=== PATIENT | male | born 1965 | race Caucasian/White ===

== ENCOUNTER 2017-06-04 09:45 | Emergency (ER) | payer SELFPAY ==
[2017-06-04 09:50] VITALS: BMI 20.1
--- NOTE | 2017-06-04 10:06 | PDOC ---
History of Present Illness - General History Source: Patient Exam Limitations: No Limitations - History of Present Illness Initial Comments: 06/04/17 10:59 The patient is a 52-year-old male with a significant past medical history of HLD and HTN, who presents to the emergency department with complaints of constipation for 2 weeks. He reports he feels like there is a weight at his pubic region. He also reports attempts to use the bathroom that have only resulted in the release of gas. He also complains of decreased appetite and increased sweating over the last two weeks that is worse during the day. He reports he has been able to drink water, but has been experiencing urinary hesitancy. He reports he has bowel movements every other day at baseline. He states this level of constipation has not occurred before. He states he went to [facility] 6 months ago and was told to have high blood pressure, high cholesterol, and high blood sugar. He states he also developed right leg, left facial, and left arm numbness 6 months ago, and worsening vision for 4 months. Patient states he lost approximately 50 pounds over the last 3 years after he stopped drinking alcohol. The patient denies chest pain, shortness of breath, headache and dizziness. The patient denies fever, chills, abdominal pain, nausea, vomit, and diarrhea. The patient denies dysuria, frequency, urgency and hematuria. Allergies: NKDA Past Surgical History: None reported Social History: Current everyday smoker, previous ETOH use, no other current toxic habits <Jaja Lerner - Last Filed: 06/04/17 10:59> <Layne Up - Last Filed: 06/04/17 15:25> - General Chief Complaint: Constipation Stated Complaint: URINARY PROBLEM Time Seen by Provider: 06/04/17 10:05 Past History <Jaja Lerner - Last Filed: 06/04/17 10:59> - Past Medical History COPD: No - Suicide/Smoking/Psychosocial Hx Smoking History: Current every day smoker Number of Cigarettes Smoked Daily: 20 Information on smoking cessation initiated: No Substance Use Type: Alcohol <Layne Up - Last Filed: 06/04/17 15:25> - Past Medical History Allergies/Adverse Reactions: Allergies Allergy/AdvReac Type Severity Reaction Status Date / Time No Known Allergies Allergy Verified 06/04/17 09:50 Home Medications: Ambulatory Orders Metformin HCl 500 mg PO BID #30 tablet 06/04/17 Polyethylene Glycol 3350 [Miralax (For Daily Use) -] 17 gm PO DAILY #1 bottle Review of Systems - Review of Systems Able to Perform ROS?: Yes Comments:: 06/04/17 10:59 GENERAL/CONSTITUTIONAL: No fever or chills. No weakness. (+) Diaphoresis. (+) Decreased appetite. HEAD, EYES, EARS, NOSE AND THROAT: (+) Blurry vision. No ear pain or discharge. No sore throat. CARDIOVASCULAR: No chest pain or shortness of breath. RESPIRATORY: No cough, wheezing, or hemoptysis. GASTROINTESTINAL: No nausea, vomiting, diarrhea. No abdominal pain. (+) Constipation. GENITOURINARY: No dysuria, frequency. (+) Urinary hesitancy. MUSCULOSKELETAL: No joint or muscle swelling or pain. No neck or back pain. SKIN: No rash NEUROLOGIC: No headache, vertigo, loss of consciousness, or change in strength/ sensation. (+) Visual changes. ENDOCRINE: No increased thirst. HEMATOLOGIC/LYMPHATIC: No anemia, easy bleeding, or history of blood clots. ALLERGIC/IMMUNOLOGIC: No hives or skin allergy. <Jaja Lerner - Last Filed: 06/04/17 10:59> *Physical Exam - Vital Signs Last Vital Signs Temp Pulse Resp BP Pulse Ox 97.8 F 93 H 18 144/88 99 06/04/17 09:47 06/04/17 09:47 06/04/17 09:47 06/04/17 09:47 06/04/17 09:47 - Physical Exam Comments: 06/04/17 10:59 GENERAL: Awake, alert, and fully oriented, in no acute distress. (+) Cachetic. HEAD: No signs of trauma EYES: PERRLA, EOMI, sclera anicteric, conjunctiva clear ENT: Auricles normal inspection, hearing grossly normal, nares patent, oropharynx clear without exudates. Moist mucosa NECK: Normal ROM, supple, no lymphadenopathy, JVD, or masses LUNGS: Breath sounds equal, clear to auscultation bilaterally. No wheezes, and no crackles HEART: Regular rate and rhythm, normal S1 and S2, no murmurs, rubs or gallops ABDOMEN: Soft, nontender, normoactive bowel sounds. No guarding, no rebound. No masses TESTICULAR EXAM: No hernias, no masses, no tenderness. EXTREMITIES: Normal range of motion, no edema. No clubbing or cyanosis. No cords, erythema, or tenderness NEUROLOGICAL: Cranial nerves II through XII grossly intact. Normal speech, normal gait SKIN: Warm, Dry, normal turgor, no rashes or lesions noted. <Jaja Lerner - Last Filed: 06/04/17 10:59> - Vital Signs Last Vital Signs Temp Pulse Resp BP Pulse Ox 97.8 F 93 H 18 144/88 99 06/04/17 09:47 06/04/17 09:47 06/04/17 09:47 06/04/17 09:47 06/04/17 09:47 <Layne Up - Last Filed: 06/04/17 15:25> ED Treatment Course - LABORATORY CBC & Chemistry Diagram: 06/04/17 11:00 06/04/17 11:00 <Layne Up - Last Filed: 06/04/17 15:25> Medical Decision Making - Medical Decision Making 06/04/17 11:07 Pt presents to the ED complaining of a two week history of constipation that appears to be an exacerbation of his chronic constipation. PAtient appears chronically ill--he is extremely cachectic and his visual acuity is extremely poor, which is new over the last 4 months. Differential includes chronic untreated DM, hypothyroidism, occult malignancy, other metabolic or endocrine derrangement. Will check labs, CXR and KUB and reassess. I have discussed at length with the patient the need for follow up and primary care. Will refer to primary care if labs show no emergent issues. <Layne Up - Last Filed: 06/04/17 15:25> *DC/Admit/Observation/Transfer - Attestations Scribe Attestion: 06/04/17 11:00 Documentation prepared by Jaja Lerner, acting as rn medical surgical for Layne Up MD, /DO. <Jaja Lerner - Last Filed: 06/04/17 10:59> - Discharge Dispostion Admit: No <Layne Up - Last Filed: 06/04/17 15:25> Diagnosis at time of Disposition: Diabetes Qualifiers: Diabetes mellitus type: other specified (including ELYSE) Diabetes mellitus complication status: with hyperglycemia Diabetes mellitus fpc insulin use : without director long term care use Qualified Code(s): E13.65 - Other specified diabetes mellitus with hyperglycemia - Discharge Dispostion Disposition: HOME Condition at time of disposition: Good - Prescriptions Prescriptions: Metformin HCl 500 mg PO BID #30 tablet Polyethylene Glycol 3350 [Miralax (For Daily Use) -] 17 gm PO DAILY #1 bottle - Referrals Referrals: Dimas Cevallos MD [Staff Physician] - Iván Braga MD [Staff Physician] - - Patient Instructions Printed Discharge Instructions: Type 2 Diabetes, DI for Hyperglycemia -- Adult Additional Instructions: return to the ED for passing out, vomiting, abdominal pain, other new or worsening symptoms. You have diabetes--you must take the medicine prescribed for you or you will become very sick. Please go to medical clinic tomorrow morning--you need to have your blood sugar checked and you need medical follow up. Return to fast track for a blood sugar check if they are unable to see you in medical clinic.
[2017-06-04 11:07] LABS: BASO % 0.4 % (0-2.0); EOS % 0.9 % (0-4.5); HEMATOCRIT 38.3 % (35.4-49); HEMOGLOBIN 12.4 GM/dL (11.7-16.9); LYMPH % 10.1 % (8-40); MCH 26.3 pg (25.7-33.7); MCHC 32.5 g/dl (32.0-35.9); MEAN CELL VOLUME 81.1 fl (80-96); MEAN PLT VOLUME 7.7 fl (7.5-11.1); MONO % 7.1 % (3.8-10.2); NEUT % 81.5 % (42.8-82.8); PLATELET COUNT 424 K/MM3 (134-434); RBC 4.73 M/mm3 (4.00-5.60); RDW 13.1 % (11.9-15.9); WHITE BLOOD COUNT 9.5 K/mm3 (4.0-10.0)
[2017-06-04 11:34] LABS: ALBUMIN 2.7 g/dl (3.4-5.0); ANION GAP 6 (8-16); BLOOD UREA NITROGEN 18 mg/dL (7-18); CALCIUM 8.9 mg/dL (8.5-10.1); CHLORIDE 98 mmol/L (98-107); CO2 30 mmol/L (21-32); CREATININE 1.1 mg/dL (0.7-1.3); POTASSIUM 3.9 mmol/L (3.5-5.1); SGOT/AST 3 U/L (15-37); SGPT/ALT 19 U/L (12-78); SODIUM 134 mmol/L (136-145)
[2017-06-04 11:35] LABS: BILIRUBIN,TOTAL 0.4 mg/dL (0.2-1.0); GLUCOSE,RANDOM 383 mg/dL (74-106); TOT PROT 6.7 g/dl (6.4-8.2)
[2017-06-04] MEDS ORDERED: SODIUM CHLORIDE 1,000 ML IV STA ×2 (11:35→14:01)
[2017-06-04] MEDS ORDERED: SODIUM CHLORIDE 0.9% 1000 ML INFUS.BAG IV ONE (11:36)
[2017-06-04 11:43] LABS: ALK PHOS 260 U/L (45-117)
--- NOTE | 2017-06-04 15:25 | HOSP ---
Subjective - Review of Symptoms Subjective: spoke with ER MD about this patient with concern regarding his elevated sugars as per ER MD pt came in with c/o constipation, with hx of uncontrolled sugars and blood pressure which pt did not follow up with PMD for treatment Pt was treated with IVF with improvement in sugars after 1L NS, 380>330. as pt has no symptoms would suggest to start metformin, diabetic counseling on risks assoc with untreated DM and encourage to follow up in resident clinic with Dr Braga tomorrow. Advise pt can just walk into clinic tomorrow without appointment. Physical Examination Vital Signs: Vital Signs Temperature 98.9 F 06/04/17 12:25 Pulse Rate 77 06/04/17 12:25 Respiratory Rate 17 06/04/17 12:25 Blood Pressure 158/89 06/04/17 12:25 O2 Sat by Pulse Oximetry (%) 100 06/04/17 12:25 Labs: CBC, BMP 06/04/17 11:00 06/04/17 11:00
[2017-06-04 15:41] VITALS: BP 148/79; PULSE 78; TEMP 98.2
== END 2017-06-04 15:41 | disposition home or self-care (01) ==
LOC: JER 09:45
PROC: 3E0337Z Introduction of Electrolytic and Water Balance Substance into Peripheral Vein, Percutaneous Approach (ICD-10-PCS; principal; 2017-06-04)
DX: E11.65 Type 2 diabetes mellitus with hyperglycemia (principal); I10 Essential (primary) hypertension; E78.00 Pure hypercholesterolemia, unspecified
CPT/HCPCS: 36415; 71046-TC-FY; 74018-TC-FY; 80053; 82962; 84443; 85025; 99282-25

== ENCOUNTER 2017-06-05 11:28 | Emergency (ER) | payer SELFPAY ==
[2017-06-05 11:45] VITALS: BP 151/98; PULSE 77; TEMP 97.9; BMI 20.1
--- NOTE | 2017-06-05 12:39 | PDOC ---
History of Present Illness - General Chief Complaint: Pain, Acute Stated Complaint: REVISIT, CONSTIPATED Time Seen by Provider: 06/05/17 11:54 - History of Present Illness Initial Comments: 06/05/17 12:34 The patient is a 52 year old male, with a significant past medical history of diabetes (Dx yesterday), who presents to the emergency department with two weeks of constipation and a heaviness pain to his lower abdomen and groin. He reports a heaviness to his groin which is alleviated by sitting and exacerbated with walking or standing.The patient states he was seen in the ED yesterday for the same symptoms and started in metformin after being found to have elevated glucose and given miralax to take at home for his constipation. He reports taking two doses of the miralax without a bowel movement, so he came to ER today. Pt denies any abdominal pain. Denies N/V. Denies F/C. The patient denies chest pain, shortness of breath, headache and dizziness. The patient denies fever, chills, nausea, vomit, diarrhea. The patient denies dysuria, frequency, urgency and hematuria. Pt notes that he has his first PMD appointment TODAY at 2pm for management of his new diabetes. Allergies: NKDA " Past History - Past Medical History Allergies/Adverse Reactions: Allergies Allergy/AdvReac Type Severity Reaction Status Date / Time No Known Allergies Allergy Verified 06/05/17 11:39 Home Medications: Ambulatory Orders Metformin HCl 500 mg PO BID #30 tablet 06/04/17 Polyethylene Glycol 3350 [Miralax (For Daily Use) -] 17 gm PO DAILY #1 bottle Magnesium Citrate [Citroma -] 300 ml PO ONCE #2 bottle 06/05/17 Sodium Phosphate/Na Biphos [Fleet Adult Rectal Enema] 133 ml RC ONCE #1 enema COPD: No - Suicide/Smoking/Psychosocial Hx Smoking History: Current every day smoker Have you smoked in the past 12 months: Yes Number of Cigarettes Smoked Daily: 20 Information on smoking cessation initiated: Yes 'Breaking Loose' booklet given: 06/05/17 Hx Alcohol Use: No Drug/Substance Use Hx: No Substance Use Type: Alcohol Review of Systems - Review of Systems Comments:: 06/05/17 12:35 """GENERAL/CONSTITUTIONAL: No fever or chills. No weakness. HEAD, EYES, EARS, NOSE AND THROAT: No change in vision. No ear pain or discharge. No sore throat. CARDIOVASCULAR: No chest pain or shortness of breath. RESPIRATORY: No cough, wheezing, or hemoptysis. GASTROINTESTINAL: (+) constipation. No nausea, vomiting, diarrhea GENITOURINARY: No dysuria, frequency, or change in urination. MUSCULOSKELETAL: No joint or muscle swelling or pain. No neck or back pain. SKIN: No rash NEUROLOGIC: No headache, vertigo, loss of consciousness, or change in strength/ sensation. ENDOCRINE: No increased thirst. No abnormal weight change. HEMATOLOGIC/LYMPHATIC: No anemia, easy bleeding, or history of blood clots. ALLERGIC/IMMUNOLOGIC: No hives or skin allergy. """ *Physical Exam - Vital Signs Last Vital Signs Temp Pulse Resp BP Pulse Ox 97.9 F 77 20 151/98 100 06/05/17 11:39 06/05/17 11:39 06/05/17 11:39 06/05/17 11:39 06/05/17 11:39 - Physical Exam Comments: 06/05/17 12:35 """GENERAL: Awake, alert, and fully oriented, in no acute distress HEAD: No signs of trauma EYES: PERRLA, EOMI, sclera anicteric, conjunctiva clear ENT: Auricles normal inspection, hearing grossly normal, nares patent, oropharynx clear without exudates. Moist mucosa NECK: Nontender, no stepoffs, Normal ROM, supple, no lymphadenopathy, JVD, or masses LUNGS: Breath sounds equal, clear to auscultation bilaterally. No wheezes, and no crackles HEART: Regular rate and rhythm, normal S1 and S2, no murmurs, rubs or gallops ABDOMEN: Soft, nontender, normoactive bowel sounds. No guarding, no rebound. No masses EXTREMITIES: Normal range of motion, no edema. No clubbing or cyanosis. No cords, erythema, or tenderness NEUROLOGICAL: Cranial nerves II through XII intact. 5/5 strength and sensation in all extremities, Normal speech, normal gait SKIN: Warm, Dry, normal turgor, no rashes or lesions noted. """ Medical Decision Making - Medical Decision Making 06/05/17 12:36 52 M with constipation. Benign abdomen. Pt has primary care appointment today at 2PM. Discussed treatment options with pt, who has opted to take mag citrate and enema at home so that he will not miss his appointment today. - DC with mag citrate and enema - F/u PMD today Pt is well appearing, with normal vitals. Clinically stable for DC at this time. I discussed the physical exam findings, ancillary test results and final diagnoses with the patients family. I answered all of their questions. The family was satisfied with the care received and felt comfortable with the discharge plan and treatment plan. They agree to follow up with the primary care physician within 24-72 hours. *DC/Admit/Observation/Transfer Diagnosis at time of Disposition: Constipation - Discharge Dispostion Disposition: HOME - Prescriptions Prescriptions: Magnesium Citrate [Citroma -] 300 ml PO ONCE #2 bottle Sodium Phosphate/Na Biphos [Fleet Adult Rectal Enema] 133 ml RC ONCE #1 enema - Referrals Referrals: Roosevelt Alcaraz MD [Staff Physician] - - Patient Instructions Printed Discharge Instructions: DI for Constipation Additional Instructions: Please follow up with your primary care doctor TODAY as scheduled. Go directly to clinic after leaving the ER. Call the number provided to make an appointment with a senior staff specialized employment for further management of your constipation. Take the magnesium citrate as prescribed to help you have a bowel movement. Use the enema if the magnesium citrate doesn't work. If you experience abdominal pain, nausea, vomiting, fevers, or any other concerning symptoms, return to the ER immediately. - Post Discharge Activity - Attestations Physician Attestion: 06/05/17 12:40 I, Dr. Michele Frias MD, attest that this document has been prepared under my direction and personally reviewed by me in its entirety. I further attest, that it accurately reflects all work, treatment, procedures and medical decision -making performed by me.
== END 2017-06-05 12:50 | disposition home or self-care (01) ==
LOC: JER 11:28
DX: K59.00 Constipation, unspecified (principal); E11.9 Type 2 diabetes mellitus without complications; Z79.84 Long term (current) use of oral hypoglycemic drugs; F17.210 Nicotine dependence, cigarettes, uncomplicated
CPT/HCPCS: 99282-25

== ENCOUNTER 2017-06-28 10:56 | Inpatient (IN) | payer OTHER ==
[2017-06-28 11:01] VITALS: BMI 24.3
[2017-06-28] MEDS ORDERED: SODIUM CHLORIDE 1,000 ML IV STA ×2 (11:18→14:40)
--- NOTE | 2017-06-28 11:19 | PDOC ---
Attending Attestation - HPI HPI: 06/28/17 11:42 The patient is 52 year old male with a significant PMH of recently diagnosed diabetes (noncompliant with Metformin), HTN, and hyperlipidemia who presents to the emergency department with elevated blood sugar and rectal pain when sitting. The patient reports seeing his Opthamologist today and being told his blood sugar was over 900, prompting his visit. The patient also notes receiving a call yesterday from Dr. Cabrera office noting that his abdomen/pelvis CT on 09/08 showed a 'multiloculated lesion within the left perineum suggesting a perirectal abscess', as he was following with him for constipation. He denies diarrhea or hematochezia. He denies any weakness or numbness. He denies any other complaints. Allergies: NKA GI: Dr. Munoz - Physicial Exam PE: 06/28/17 11:42 GENERAL: (+) Appears thin. Awake, alert, and fully oriented, in no acute distress HEAD: No signs of trauma EYES: PERRLA, EOMI, sclera anicteric, conjunctiva clear ENT: (+) Dry mucosa. Auricles normal inspection, hearing grossly normal, nares patent, oropharynx clear without exudates. NECK: Normal ROM, supple, no lymphadenopathy, JVD, or masses LUNGS: Breath sounds equal, clear to auscultation bilaterally. No wheezes, and no crackles HEART: Regular rate and rhythm, normal S1 and S2, no murmurs, rubs or gallops ABDOMEN: Soft, nontender, normoactive bowel sounds. No guarding, no rebound. No masses EXTREMITIES: Normal range of motion, no edema. No clubbing or cyanosis. No cords, erythema, or tenderness NEUROLOGICAL: Cranial nerves II through XII grossly intact. Normal speech, normal gait SKIN: Warm, Dry, normal turgor, no rashes or lesions noted. <Saji Tapia - Last Filed: 06/28/17 12:42> - Resident Resident Name: Randall Saenz - ED Attending Attestation I have performed the following: I have examined & evaluated the patient, The case was reviewed & discussed with the resident, I agree w/resident's findings & plan, Exceptions are as noted - Medical Decision Making Pt recently diagnosed with DM2 presents with hyperglycemia, perirectal abscess. He was recently started on metformin for his blood sugar, but he misunderstood instructions (misread the label) and was taking it daily instead of BID. Also he was just diagnosed with perirectal abscess by Dr. Munoz, who was arranging surgical referral. D/w Dr. Sawant, gleason operator for surgery, recommended IR evaluation. Will admit and consult with both. <Gemma Diaz - Last Filed: 06/28/17 13:20>
--- NOTE | 2017-06-28 11:31 | PDOC ---
History of Present Illness - General Chief Complaint: Blood Sugar Problem Stated Complaint: High sugar (900) Time Seen by Provider: 06/28/17 11:02 - History of Present Illness Initial Comments: 06/28/17 11:49 The patient is a 52 year old male with a history of HTN, HLD, Recently diagnosed DM, who presents for evaluation of high blood sugar. The patient is accompanied by family who assist in providing the history. They report that the patient was diagnosed with DM 1 month ago here in our ED and placed on Metformin 500mg BID, although the patient has only been taking the medication once a day. He states that he was seeing his opthomologist today who referred him to the ED due to an extremely high blood sugar. The patient notes that he was recently diagnosed with a perirectal abscess on CT [address] Munoz. Otherwise, the patient's only complaint on presentation is rectal pain due to the perirectal abscess. He denies fevers, chills, SOB, chest pain, nausea, vomiting, abdominal pain, or changes with urination. Past History - Past Medical History Allergies/Adverse Reactions: Allergies Allergy/AdvReac Type Severity Reaction Status Date / Time No Known Allergies Allergy Verified 06/28/17 11:01 Home Medications: Ambulatory Orders Metformin HCl 500 mg PO BID #30 tablet 06/04/17 Polyethylene Glycol 3350 [Miralax (For Daily Use) -] 17 gm PO DAILY #1 bottle Magnesium Citrate [Citroma -] 300 ml PO ONCE #2 bottle 06/05/17 Sodium Phosphate/Na Biphos [Fleet Adult Rectal Enema] 133 ml RC ONCE #1 enema Atorvastatin Ca [Lipitor] 40 mg PO HS 06/28/17 Calcium Carb, Citrate/Vit D3 [Calcium + D3 ER Tablet] 1 each PO DAILY 06/28/17 COPD: No Diabetes: Yes - Suicide/Smoking/Psychosocial Hx Smoking History: Current every day smoker Have you smoked in the past 12 months: Yes Number of Cigarettes Smoked Daily: 5 Information on smoking cessation initiated: Yes 'Breaking Loose' booklet given: 06/28/17 Hx Alcohol Use: No Drug/Substance Use Hx: No Substance Use Type: Alcohol Review of Systems - Review of Systems Comments:: 06/28/17 11:54 Constitutional: No fevers, chills, fatigue, malaise HEENT: No Rhinorrhea, nasal congestion, visual changes Cardiovascular: No chest pain, syncope, palpitations, lightheadedness Respiratory: No Cough, SOB, Hemoptysis, Gastrointestinal: No Abdominal pain, Nausea, Vomiting, Constipation, Diarrhea, Melena Genitourinary: Rectal pain. No Dysuria, Frequency, Urgency, Hesitancy, Hematuria, Flank pain Musculoskeletal: No Myalgia, arthralgia Skin: No rashes, itching, bruising, pallor Neurologic: No Headache, Dizziness, Numbness, Weakness, or Tingling Psychiatric: No Hallucinations. No SI or HI *Physical Exam - Vital Signs Last Vital Signs Temp Pulse Resp BP Pulse Ox 97.9 F 103 H 19 149/90 98 06/28/17 10:58 06/28/17 10:58 06/28/17 10:58 06/28/17 10:58 06/28/17 10:58 - Physical Exam Comments: 06/28/17 11:54 General Appearance: Nourished. No Apparent Distress HEENT: EOMI, STEPHANIE. No Pharyngeal Erythema, Tonsillar Exudate, Tonsillar Erythema Neck: No Cervical Lymphadenopathy Respiratory/Chest: Lungs Clear, Normal Breath Sounds. No Crackles, Rales, Rhonchi, Wheezing Cardiovascular: Regular Rhythm, Regular Rate. No Murmur, Gallops, Rubs Gastrointestinal/Abdominal: Normal Bowel Sounds, Soft. No Guarding, Rebound, Tenderness Musculoskeletal: No CVA Tenderness Extremity: Normal Capillary Refill Integumentary: Normal Color, Dry, Warm Neurologic: Fully Oriented, Alert, Normal Mood/Affect, Normal Response, ED Treatment Course - LABORATORY CBC & Chemistry Diagram: 06/28/17 11:15 06/28/17 11:15 Medical Decision Making - Medical Decision Making 06/28/17 11:55 The patient is a 52 year old male with a history of HTN, HLD, Recently diagnosed DM, who presents for evaluation of high blood sugar. Differential includes but is not limited to: Hyperglycemia, HHS, DKA, infectious, metabolic derangement. Given the patient's reported history of high blood sugar as well as a finger stick glucose that was over-range in triage, we will obtain a cbc, cmp, vbg, ua, acetone, troponin, ekg to evaluate further although it is likely the patient is hyperglycemic due to poor medication compliance and the patient' s known perirectal abscess. We will treat with iv fluids and 4 units of insulin here in the ED and continue to monitor and reassess. 06/28/17 12:52 CBC demonstrates an elevated wbc to 14.7, cmp demonstrates a glucose of 513 without anion gap with a negative acetone. UA demonstrates 3+ glucose and positive leuk easterase with 33 WBC. Given the patient's hyperglycemia and large perirectal abscess, he will require admission for further management of his symptoms. We discussed the case with Dr. Riddle who recommended IR evaluation for drainage and will evaluate the patient. We will start rocephin and flagyl here in the ED per Dr. Riddle's recommendations. We will continue to monitor and reassess. 06/28/17 13:27 We discussed the case with the hospitalist team who accepted the patient for admission. *DC/Admit/Observation/Transfer Diagnosis at time of Disposition: Hyperglycemia, Perirectal abscess - Discharge Dispostion Condition at time of disposition: Stable Admit: Yes - Referrals Referrals: Iván Braga MD [Primary Care Provider] - - Patient Instructions - Post Discharge Activity
[2017-06-28] MEDS ORDERED: INSULIN REGULAR HUMAN 100 UNITS/ML *VIAL SQ ONE (11:32)
[2017-06-28] MEDS ORDERED: INSULIN REGULAR HUMAN 100 UNITS/ML *VIAL ONE (11:36)
[2017-06-28 11:40] LABS: BASO % 0.6 % (0-2.0); HEMATOCRIT 37.4 % (35.4-49); HEMOGLOBIN 12.6 GM/dL (11.7-16.9); LYMPH % 7.3 % (8-40); MCHC 33.6 g/dl (32.0-35.9); MEAN CELL VOLUME 80.3 fl (80-96); MEAN PLT VOLUME 8.3 fl (7.5-11.1); NEUT % 87.1 % (42.8-82.8); PLATELET COUNT 491 K/MM3 (134-434); RBC 4.65 M/mm3 (4.00-5.60); RDW 13.5 % (11.9-15.9); WHITE BLOOD COUNT 14.7 K/mm3 (4.0-10.0)
[2017-06-28 11:43] LABS: VENOUS PH 7.35 (7.32-7.42)
[2017-06-28 11:44] LABS: VENOUS PC02 56.6 mmHg (38-52); VENOUS PO2 22.4 mmHg (28-48)
[2017-06-28 12:14] LABS: URINE APPEARANCE SLCLOUDY; URINE BILIRUBIN NEGATIVE (NEGATIVE); URINE BLOOD 1+ (NEGATIVE); URINE COLOR YELLOW; URINE GLUCOSE (UA) 3+ (NEGATIVE); URINE KETONE NEGATIVE (NEGATIVE); URINE NITRITE NEGATIVE (NEGATIVE); URINE UROBILINOGEN NEGATIVE mg/dL (0.2-1.0)
[2017-06-28 12:15] LABS: URINE LEUK ESTERASE 2+ (NEGATIVE); URINE PROTEIN 1+ (NEGATIVE)
[2017-06-28 12:16] LABS: EPI CELLS RARE /HPF (FEW); URINE BACTERIA RARE /hpf (NONE SEEN); URINE MUCUS RARE
[2017-06-28 12:26] LABS: ALBUMIN 2.8 g/dl (3.4-5.0); ALK PHOS 175 U/L (45-117); ANION GAP 10 (8-16); BILIRUBIN,TOTAL 0.2 mg/dL (0.2-1.0); BLOOD UREA NITROGEN 21 mg/dL (7-18); CHLORIDE 93 mmol/L (98-107); CO2 29 mmol/L (21-32); CREATININE 1.2 mg/dL (0.7-1.3); POTASSIUM 4.6 mmol/L (3.5-5.1); SGOT/AST 5 U/L (15-37); SGPT/ALT 11 U/L (12-78); SODIUM 132 mmol/L (136-145); TOT PROT 7.6 g/dl (6.4-8.2)
[2017-06-28 12:33] LABS: GLUCOSE,RANDOM 513 mg/dL (74-106)
[2017-06-28] MEDS ORDERED: ACETAMINOPHEN 1000 MG/100 ML VIAL (NON FORMULARY) IVPB ONE (12:40)
--- NOTE | 2017-06-28 12:53 | PN ---
Progress Note (short form) - Note Progress Note: surgery asked to evaluate 52m who had perirectal abscess tracking into pelvis on outpt ct 2 days ago. pt brought to hospital for inpatient evaluation. never had a colonscopy. ct reviewed. Abscess is not amenable to surgical drainage. suggest IR eval for drainage. needs gi eval for cause. prostate unlikely in the differential. will formally evaluate after the blizzard tomorrow. suggest zosyn or rocephin/flagyl.
[2017-06-28] MEDS ORDERED: CEFTRIAXONE 1 GM in DEXTROSE 5%-WATER - 50 ML IVPB ONE (13:13)
[2017-06-28] MEDS ORDERED: ACETAMINOPHEN INJECTION 100 ML IVPB ONE (13:20)
--- NOTE | 2017-06-28 13:55 | CON.GI ---
Consult Consult Specialty:: GI Reason for Consultation:: perirectal abscess - History of Present Illness History of Present Illness: the pt is known to me from outpatient follow up. He was seen as OP earlier this week for persistent anal pain. A CT revealed perirectal abscess. Other than anal pain and tenderness, no other symptoms, or sings on exam. The patient was referred to surgery for evaluation and prescribed Augmenting 875 po q12 x 10 days in the interim. The patient was scheduled to undergo colonoscopy as OP to r /o IBD, etc. No history of weight loss, jaundice, melena, hematochezia, hematemesis, dyspesia, dysphagia. - History Source History Provided By: Patient, Family Member () - Alcohol/Substance Use Hx Alcohol Use: No - Smoking History Smoking history: Current every day smoker Have you smoked in the past 12 months: Yes Aproximately how many cigarettes per day: 5 Home Medications - Allergies Allergies/Adverse Reactions: Allergies Allergy/AdvReac Type Severity Reaction Status Date / Time No Known Allergies Allergy Verified 06/28/17 11:01 - Home Medications Home Medications: Ambulatory Orders Metformin HCl 500 mg PO BID #30 tablet 06/04/17 Polyethylene Glycol 3350 [Miralax (For Daily Use) -] 17 gm PO DAILY #1 bottle Bisacodyl [Dulcolax] 5 mg PO DAILY 06/28/17 Family Disease History - Family Disease History Family History: Unremarkable Review of Systems Findings/Remarks: as per HPI Physical Exam-GI Vital Signs: Vital Signs Temperature 97.9 F 06/28/17 10:58 Pulse Rate 103 H 06/28/17 10:58 Respiratory Rate 19 06/28/17 10:58 Blood Pressure 149/90 06/28/17 10:58 O2 Sat by Pulse Oximetry (%) 98 06/28/17 10:58 Constitutional: Yes: Mild Distress Eyes: Yes: Conjunctiva Clear HENT: Yes: Atraumatic Cardiovascular: Yes: Regular Rate and Rhythm Gastrointestinal Inspection: No: Distention ...Palpate: Yes: Soft. No: Firm/Rigid, Guarding, Tenderness ...Rectal Exam: Yes: Sphincter Tone Normal, Other (tenderness @ 3 o'clock) Neurological: Yes: Alert, Oriented Labs: CBC, BMP 06/28/17 11:15 06/28/17 11:15 CBCD WBC 14.7 K/mm3 (4.0-10.0) H D 06/28/17 11:15 RBC 4.65 M/mm3 (4.00-5.60) 06/28/17 11:15 Hgb 12.6 GM/dL (11.7-16.9) 06/28/17 11:15 Hct 37.4 % (35.4-49) 06/28/17 11:15 MCV 80.3 fl (80-96) 06/28/17 11:15 MCHC 33.6 g/dl (32.0-35.9) 06/28/17 11:15 RDW 13.5 % (11.9-15.9) 06/28/17 11:15 Plt Count 491 K/MM3 (134-434) H 06/28/17 11:15 MPV 8.3 fl (7.5-11.1) 06/28/17 11:15 CMP Sodium 132 mmol/L (136-145) L 06/28/17 11:15 Potassium 4.6 mmol/L (3.5-5.1) 06/28/17 11:15 Chloride 93 mmol/L (98-107) L 06/28/17 11:15 Carbon Dioxide 29 mmol/L (21-32) 06/28/17 11:15 Anion Gap 10 (8-16) 06/28/17 11:15 BUN 21 mg/dL (7-18) H 06/28/17 11:15 Creatinine 1.2 mg/dL (0.7-1.3) 06/28/17 11:15 Creat Clearance w eGFR > 60 (>60) 06/28/17 11:15 Calcium 9.0 mg/dL (8.5-10.1) 06/28/17 11:15 Total Bilirubin 0.2 mg/dL (0.2-1.0) D 06/28/17 11:15 AST 5 U/L (15-37) L D 06/28/17 11:15 ALT 11 U/L (12-78) L D 06/28/17 11:15 Alkaline Phosphatase 175 U/L (45-117) H D 06/28/17 11:15 Total Protein 7.6 g/dl (6.4-8.2) 03/07/18 11:15 Albumin 2.8 g/dl (3.4-5.0) L 06/28/17 11:15 Imaging - Results Cat Scan: Report Reviewed Problem List - Problems (1) Perirectal abscess Code(s): K61.1 - RECTAL ABSCESS Assessment/Plan 52M with uncontrolled DM and perirectal abscess. SX/IR evaluation for possible drainage as it has been symptomatic x weeks leading to multiple ED visits ID consult. Would start Cipr/Flagyl, or equivalent in the interim. Plan Colonoscopy after drainage, possibly as OP Will follow
[2017-06-28] MEDS ORDERED: CEFTRIAXONE 1 GM/50 ML BAG ONE (13:56)
--- NOTE | 2017-06-28 14:34 | EKG ---
Test Reason : Blood Pressure : / mmHG Vent. Rate : 098 BPM Atrial Rate : 098 BPM P-R Int : 178 ms QRS Dur : 114 ms QT Int : 368 ms P-R-T Axes : 064 058 062 degrees QTc Int : 469 ms SINUS RHYTHM WITH PREMATURE VENTRICULAR COMPLEXES OR FUSION COMPLEXES POSSIBLE LEFT ATRIAL ENLARGEMENT BORDERLINE ECG NO PREVIOUS ECGS AVAILABLE Confirmed by CARON LECHUGA MD ([id number]) on 06/28/2017 2:34:15 PM Referred By: Confirmed By:CARON LECHUGA MD
[2017-06-28] MEDS ORDERED: ACETAMINOPHEN 325 MG TABLET (FP) PO PRN (14:47)
--- NOTE | 2017-06-28 14:51 | HP ---
CHIEF COMPLAINT: rectal pain and constipation PCP: Dr Braga HISTORY OF PRESENT ILLNESS: The pt is a 52 year old male with a PMH of recently diagnosed DM, hypercholesterolemia who presented today referred by his Ophtalmologist after he discovered his elevated blood glucose. He was followed by Dr Maradiaga for constipation and was found to have perirectal abscess on abdominal CT. He was advised to come to the hospital for IR drainage. Today he is complaining of rectal pain, 8/10 and constipation that is present for several months, subjective weight loss, change in color of bowel movements, no melena, no nausea , vomiting. He states that recently he has to press on his lower abdomen in order to urinate. He denies dysuria, increased frequency, urgency. The pt never had colonoscopy. He has a new PCP and started taking Metformin but once a day instead of twice a day as recommended. He also didn't get glucometer from pharmacy due to insurance issues. ER course was notable for: (1)sepsis protocol ordered (2)IVF (3)Ceftriaxone and Flagyl Recent Travel: PAST MEDICAL HISTORY: as above PAST SURGICAL HISTORY: none Social History: Smoking:current smoker, cut down to 3-4 cigarettes/day Alcohol:no Drugs: no Family History: Mother: bc of colon cancer in late 60s Father: DM Allergies No Known Allergies Allergy (Verified 06/28/17 11:01) HOME MEDICATIONS: Home Medications Medication Instructions Recorded Metformin HCl 500 mg PO BID #30 tablet 06/04/17 Polyethylene Glycol 3350 [Miralax 17 gm PO DAILY #1 bottle 06/04/17 (For Daily Use) -] Bisacodyl [Dulcolax] 5 mg PO DAILY 06/28/17 REVIEW OF SYSTEMS CONSTITUTIONAL: weight loss Absent: fever, chills, diaphoresis, generalized weakness, malaise, loss of appetite, HEENT: Absent: rhinorrhea, nasal congestion, throat pain, throat swelling, difficulty swallowing, CARDIOVASCULAR: Absent: chest pain, syncope, palpitations, irregular heart rate, lightheadedness , peripheral edema RESPIRATORY: Absent: cough, shortness of breath, dyspnea with exertion, orthopnea, wheezing, GASTROINTESTINAL:constipation, Absent: abdominal pain, abdominal distension, nausea, vomiting, diarrhea, melena , hematochezia GENITOURINARY: rectal pain Absent: dysuria, frequency, urgency, hesitancy, hematuria, flank pain, MUSCULOSKELETAL: Absent: myalgia, arthralgia, joint swelling, back pain, neck pain SKIN: Absent: rash, ENDOCRINE: Absent: unexplained weight gain, unexplained weight loss, heat intolerance, NEUROLOGIC: Absent: headache, focal weakness or paresthesias, dizziness PSYCHIATRIC: Absent: anxiety, depression, PHYSICAL EXAMINATION Vital Signs - 24 hr 06/28/17 10:58 Temperature 97.9 F Pulse Rate 103 H Respiratory 19 Rate Blood Pressure 149/90 O2 Sat by Pulse 98 Oximetry (%) GENERAL: Awake, alert, and fully oriented, in no acute distress, lying on the side. HEAD: Normal with no signs of trauma. EYES: extraocular movements intact, sclera anicteric, conjunctiva clear. EARS, NOSE, THROAT: Ears normal, nares patent, oropharynx clear without exudates. Moist mucous membranes. NECK: Normal range of motion, supple without lymphadenopathy, JVD, or masses. LUNGS: Breath sounds equal, clear to auscultation bilaterally. No wheezes, and no crackles. No accessory muscle use. HEART: Regular rate and rhythm, normal S1 and S2 without murmur, rub or gallop. ABDOMEN: Soft, nontender, not distended, normoactive bowel sounds, no guarding, no rebound, no masses. No hepatomegaly or splenomegaly. MUSCULOSKELETAL: Normal range of motion at all joints. No CVA tenderness. UPPER EXTREMITIES: No peripheral edema. LOWER EXTREMITIES: 2+ pulses, warm. No peripheral edema. NEUROLOGICAL: Normal speech, no facial asymmetry. Gait not observed. PSYCHIATRIC: Cooperative. Good eye contact. Appropriate mood and affect. SKIN: Warm, dry, normal turgor, no rashes or lesions noted. RECTAL: No external hemorrhoids, no rash, swelling on left buttock, 4-5 cm in diameter, tenderness to palpation, no rash, normal sphincter tone, no enlarged prostate., minimal stool in rectal vault. Laboratory Results - last 24 hr 06/28/17 06/28/17 06/28/17 11:15 11:15 11:15 WBC 14.7 H D RBC 4.65 Hgb 12.6 Hct 37.4 MCV 80.3 MCH 27.0 MCHC 33.6 RDW 13.5 Plt Count 491 H MPV 8.3 Neutrophils % 87.1 H Lymphocytes % 7.3 L D Monocytes % 4.0 Eosinophils % 1.0 Basophils % 0.6 PTT (Actin FS) 35.3 H VBG pH POC VBG pCO2 POC VBG pO2 Mixed VBG HCO3 Sodium 132 L Potassium 4.6 Chloride 93 L Carbon Dioxide 29 Anion Gap 10 BUN 21 H Creatinine 1.2 Creat Clearance w eGFR > 60 POC Glucometer Random Glucose 513 H* D Calcium 9.0 Total Bilirubin 0.2 D AST 5 L D ALT 11 L D Alkaline Phosphatase 175 H D Creatine Kinase 39 Troponin I < 0.02 Total Protein 7.6 Albumin 2.8 L Urine Color Urine Appearance Urine pH Ur Specific [place] Urine Protein Urine Glucose (UA) Urine Ketones Urine Blood Urine Nitrite Urine Bilirubin Urine Urobilinogen Ur Leukocyte Esterase Urine WBC (Auto) Urine RBC (Auto) Ur Epithelial Cells Urine Bacteria Urine Mucus Acetone, Qual 06/28/17 06/28/17 06/28/17 11:17 11:18 11:28 WBC RBC Hgb Hct MCV MCH MCHC RDW Plt Count MPV Neutrophils % Lymphocytes % Monocytes % Eosinophils % Basophils % PTT (Actin FS) VBG pH 7.35 POC VBG pCO2 56.6 H POC VBG pO2 22.4 L Mixed VBG HCO3 30.1 H Sodium Potassium Chloride Carbon Dioxide Anion Gap BUN Creatinine Creat Clearance w eGFR POC Glucometer > 400 Random Glucose Calcium Total Bilirubin AST ALT Alkaline Phosphatase Creatine Kinase Troponin I Total Protein Albumin Urine Color Urine Appearance Urine pH Ur Specific [place] Urine Protein Urine Glucose (UA) Urine Ketones Urine Blood Urine Nitrite Urine Bilirubin Urine Urobilinogen Ur Leukocyte Esterase Urine WBC (Auto) Urine RBC (Auto) Ur Epithelial Cells Urine Bacteria Urine Mucus Acetone, Qual Negative 06/28/17 06/28/17 11:46 13:38 WBC RBC Hgb Hct MCV MCH MCHC RDW Plt Count MPV Neutrophils % Lymphocytes % Monocytes % Eosinophils % Basophils % PTT (Actin FS) VBG pH POC VBG pCO2 POC VBG pO2 Mixed VBG HCO3 Sodium Potassium Chloride Carbon Dioxide Anion Gap BUN Creatinine Creat Clearance w eGFR POC Glucometer [phone] Random Glucose Calcium Total Bilirubin AST ALT Alkaline Phosphatase Creatine Kinase Troponin I Total Protein Albumin Urine Color Yellow Urine Appearance Slcloudy Urine pH 5.0 Ur Specific [place] 1.029 Urine Protein 1+ H Urine Glucose (UA) 3+ H Urine Ketones Negative Urine Blood 1+ H Urine Nitrite Negative Urine Bilirubin Negative Urine Urobilinogen Negative Ur Leukocyte Esterase 2+ H Urine WBC (Auto) 33 Urine RBC (Auto) 7 Ur Epithelial Cells Rare Urine Bacteria Rare Urine Mucus Rare Acetone, Qual ASSESSMENT/PLAN: This is a 52 year old male with a PMH of DM, HLD who presented to the hospital with elevated glucose and perirectal mass and was admitted for further evaluation. Sepsis due to perirectal abscess and UTI: -sepsis protocol started in ED -cultures ordered: blood and urine -continue IVF -continue antibiotics: Ceftriaxone and Flagyl -IR drainage ordered, IR will drain the abscess tomorrow -NPO after midnight -GI consulted, f/u recommendations for outpatient colonoscopy -pain control -LA added DM; -hold metformin -continue ISS, ACHS -BGM ACHS -HgA1C ordered for tomorrow Hypercholesterolemia: -will f/u lipid panel Constipation: -continue home meds F/E/N NS/no changes/Diabetic diet Disposition: med surg Full not to follow. Problem List - Problem (1) Hyperglycemia Code(s): R73.9 - HYPERGLYCEMIA, UNSPECIFIED (2) Perirectal abscess Code(s): K61.1 - RECTAL ABSCESS (3) Constipation Code(s): K59.00 - CONSTIPATION, UNSPECIFIED (4) Diabetes Code(s): E11.9 - TYPE 2 DIABETES MELLITUS WITHOUT COMPLICATIONS Qualifiers: Diabetes mellitus type: other specified (including ELYSE) Diabetes mellitus complication status: with hyperglycemia Diabetes mellitus termination clerk insulin use: without retirement use Qualified Code(s): E13.65 - Other specified diabetes mellitus with hyperglycemia Visit type - Emergency Visit Emergency Visit: Yes ED Registration Date: 06/28/17 Care time: The patient presented to the Emergency Department on the above date and was hospitalized for further evaluation of their emergent condition. - New Patient This patient is new to me today: No - Critical Care Critical Care patient: No
--- NOTE | 2017-06-28 14:57 | HP ---
CHIEF COMPLAINT: rectal pain when sitting and hyperglycemia PCP: Dr. Braga HISTORY OF PRESENT ILLNESS: 52M with PMH of DM (diagnosed last month), htn, hld, presents with recently diagnosed perirectal abscess and sent by Ophthamologist for hyperglycemia. Pt went to Ophthamologist yesterday and had bloodwork done revealing glucose >900, so Ophthamologist called pt today advising him to come to the ER. Pt's blood glucose was 513 upon arrival to the ER, and 214 after 4U of Regular Insulin administered subcutaneously. Pt was discovered to be taking his new prescription of Metformin incorrectly, pt was taking 500mg once daily instead of BID. Pt has also been following GI (Dr. Muonz) for anal pain and constipation, and was found to have 5.2 x 3.9 x 8.4 cm multiloculated cystic lesion in the Left perineum on CT imaging from 06/26/17. Pt referred for Surgery eval and prescribed Augmentin 875mg BID for 10 days, which pt picked up from the pharmacy yesterday. Pt does report family history of mother passing away from colon cancer at age 68. Pt denies sick contacts, recent illness, fever, chills, dysuria, hematuria, hematochezia, chest pain, sob, abdominal pain, suprapubic pain. ER course was notable for: (1) NS 1 L bolus (2) Ceftriaxone and Flagyl given (3) Ofirmev 1g IVPB (4) Regular Insulin 4U SQ PAST MEDICAL HISTORY: DM htn hld PAST SURGICAL HISTORY: denies Social History: Smoking: cut down to 4 cigarettes daily Alcohol: denies Drugs: denies Family History: mom - colon cancer, passed at age 68 dad - DM Allergies No Known Allergies Allergy (Verified 06/28/17 11:01) HOME MEDICATIONS: Home Medications Medication Instructions Recorded Metformin HCl 500 mg PO BID #30 tablet 06/04/17 Polyethylene Glycol 3350 [Miralax 17 gm PO DAILY #1 bottle 06/04/17 (For Daily Use) -] Bisacodyl [Dulcolax] 5 mg PO DAILY 06/28/17 REVIEW OF SYSTEMS CONSTITUTIONAL: Absent: fever, chills, diaphoresis, generalized weakness, malaise, loss of appetite, weight change HEENT: Absent: rhinorrhea, nasal congestion, throat pain, eye pain, visual changes CARDIOVASCULAR: Absent: chest pain, palpitations, irregular heart rate, peripheral edema RESPIRATORY: Absent: cough, shortness of breath, wheezing, stridor, hemoptysis GASTROINTESTINAL: Absent: abdominal pain, abdominal distension, nausea, vomiting, diarrhea, constipation, melena, hematochezia GENITOURINARY: Absent: dysuria, frequency, urgency, hesitancy, hematuria MUSCULOSKELETAL: Absent: myalgia, arthralgia, joint swelling SKIN: Absent: rash, itching, pallor NEUROLOGIC: Absent: headache, focal weakness or paresthesias PSYCHIATRIC: Absent: anxiety, depression, suicidal or homicidal ideation, hallucinations. PHYSICAL EXAMINATION Vital Signs - 24 hr 06/28/17 06/28/17 10:58 14:50 Temperature 97.9 F 97.7 F Pulse Rate 103 H Pulse Rate [ 88 Right Radial] Respiratory 19 16 Rate Blood Pressure 149/90 Blood Pressure 135/90 [Left Arm] O2 Sat by Pulse 98 98 Oximetry (%) GENERAL: Awake, alert, and fully oriented, in no acute distress. HEENT: NC, AT. Poor dentition. LUNGS: Breath sounds equal, clear to auscultation bilaterally. No wheezes, and no crackles. No accessory muscle use. HEART: Regular rate and rhythm, normal S1 and S2 without murmur, rub or gallop. ABDOMEN: Soft, nontender, not distended, normoactive bowel sounds, no guarding, no suprapubic tenderness. NEURO: No facial droop. Sensation intact. Muscle strength 5/5 x 4 extremities. LOWER EXTREMITIES: Warm, well-perfused. No calf tenderness. No peripheral edema. PSYCHIATRIC: Cooperative. Good eye contact. Appropriate mood and affect. SKIN: Warm, dry, normal turgor, no rashes or lesions noted. RECTAL: normal sphincter tone, no hemorrhoids, no masses, prostate not enlarged , +stool in rectal vault. Left perineal area nonerythematous with 3x3cm firm and tender region surrounding by ~7x7cm region of swelling. Laboratory Results - last 24 hr 06/28/17 06/28/17 06/28/17 11:15 11:15 11:15 WBC 14.7 H D RBC 4.65 Hgb 12.6 Hct 37.4 MCV 80.3 MCH 27.0 MCHC 33.6 RDW 13.5 Plt Count 491 H MPV 8.3 Neutrophils % 87.1 H Lymphocytes % 7.3 L D Monocytes % 4.0 Eosinophils % 1.0 Basophils % 0.6 PTT (Actin FS) 35.3 H VBG pH POC VBG pCO2 POC VBG pO2 Mixed VBG HCO3 Sodium 132 L Potassium 4.6 Chloride 93 L Carbon Dioxide 29 Anion Gap 10 BUN 21 H Creatinine 1.2 Creat Clearance w eGFR > 60 POC Glucometer Random Glucose 513 H* D Calcium 9.0 Total Bilirubin 0.2 D AST 5 L D ALT 11 L D Alkaline Phosphatase 175 H D Creatine Kinase 39 Troponin I < 0.02 Total Protein 7.6 Albumin 2.8 L Urine Color Urine Appearance Urine pH Ur Specific [place] Urine Protein Urine Glucose (UA) Urine Ketones Urine Blood Urine Nitrite Urine Bilirubin Urine Urobilinogen Ur Leukocyte Esterase Urine WBC (Auto) Urine RBC (Auto) Ur Epithelial Cells Urine Bacteria Urine Mucus Acetone, Qual 06/28/17 06/28/17 06/28/17 11:17 11:18 11:28 WBC RBC Hgb Hct MCV MCH MCHC RDW Plt Count MPV Neutrophils % Lymphocytes % Monocytes % Eosinophils % Basophils % PTT (Actin FS) VBG pH 7.35 POC VBG pCO2 56.6 H POC VBG pO2 22.4 L Mixed VBG HCO3 30.1 H Sodium Potassium Chloride Carbon Dioxide Anion Gap BUN Creatinine Creat Clearance w eGFR POC Glucometer > 400 Random Glucose Calcium Total Bilirubin AST ALT Alkaline Phosphatase Creatine Kinase Troponin I Total Protein Albumin Urine Color Urine Appearance Urine pH Ur Specific [place] Urine Protein Urine Glucose (UA) Urine Ketones Urine Blood Urine Nitrite Urine Bilirubin Urine Urobilinogen Ur Leukocyte Esterase Urine WBC (Auto) Urine RBC (Auto) Ur Epithelial Cells Urine Bacteria Urine Mucus Acetone, Qual Negative 06/28/17 06/28/17 11:46 13:38 WBC RBC Hgb Hct MCV MCH MCHC RDW Plt Count MPV Neutrophils % Lymphocytes % Monocytes % Eosinophils % Basophils % PTT (Actin FS) VBG pH POC VBG pCO2 POC VBG pO2 Mixed VBG HCO3 Sodium Potassium Chloride Carbon Dioxide Anion Gap BUN Creatinine Creat Clearance w eGFR POC Glucometer [phone] Random Glucose Calcium Total Bilirubin AST ALT Alkaline Phosphatase Creatine Kinase Troponin I Total Protein Albumin Urine Color Yellow Urine Appearance Slcloudy Urine pH 5.0 Ur Specific [place] 1.029 Urine Protein 1+ H Urine Glucose (UA) 3+ H Urine Ketones Negative Urine Blood 1+ H Urine Nitrite Negative Urine Bilirubin Negative Urine Urobilinogen Negative Ur Leukocyte Esterase 2+ H Urine WBC (Auto) 33 Urine RBC (Auto) 7 Ur Epithelial Cells Rare Urine Bacteria Rare Urine Mucus Rare Acetone, Qual IMAGIN06/26/17 Ab/Pel CT -> cystic multiloculated lesion within Left perineum suggesting abscess. Ddx: perirectal abscess vs abscess originating within prostate or seminal vesicle vs underlying malignancy. Gallstones sans cholecystitis. 06/28/17 CXR -> no acute disease ASSESSMENT/PLAN: 52M with PMH of DM (diagnosed last month), htn, hld, presents with recently diagnosed perirectal abscess and hyperglycemia, admitted for sepsis. # sepsis 2/2 perirectal abscess and UTI - tachycardia, leukocytosis, perirectal abscess and UTI - IVFs - Day 1 of IV Ceftriaxone and IV Flagyl - f/u blood and urine cultures - f/u lactic acid - Surgery (Dr. Sawant) recs appreciated - IR Consult for abscess drainage - npo after midnight - pain control with Tylenol prn # hyperglycemia / DM - BGMs - Novolog SSI - pt educated about correct usage of Metformin prescription (BID) - hold oral agents for now - acetone (-) - no anion gap - f/u [id number] # constipation - likely 2/2 derek-rectal abscess related to pain on defecation - (+) family hx for colon ca - GI (Dr. Munoz) recs appreciated: colonoscopy after abscess drainage, possibly as outpatient - continue home meds of Bisacodyl and Miralax # hld - f/u lipid panel # pseudohyponatremia - corrected for hyperglycemia to Na+ 142, wnl # FEN - Fluids: NS @ 100 ml/hr - Electrolytes: continue to monitor - Nutrition: diabetic diet, npo after midnight for possible procedure tomorrow # Prophylaxis - DVT ppx with Heparin TID - deconditioning ppx with PT Visit type - Emergency Visit Emergency Visit: Yes ED Registration Date: 06/28/17 Care time: The patient presented to the Emergency Department on the above date and was hospitalized for further evaluation of their emergent condition. - New Patient This patient is new to me today: Yes Date on this admission: 06/28/17 - Critical Care Critical Care patient: No Hospitalist Screening - Colonoscopy Questionnaire Colonoscopy Questionnaire: Colonoscopy Questionnaire - Patient: 50 - 75 years old and never had a screening colonoscopy: Yes History of colon or rectal polyps, or CA: No History of IBD, Crohn's disease or UC: No History of abdominal radiation therapy as a child: Unknown - Relative: 1 with colon or rectal CA, or polyps at age 60 or younger: Yes Colon or rectal CA diagnosed at age 45 or younger: No Multiple relatives with colon or rectal CA: Unknown - Outcome: Screening Result: Positive Screen
--- NOTE | 2017-06-28 15:05 | PN ---
Teaching Attending Note Name of Resident: Claudette Chin ATTENDING PHYSICIAN STATEMENT I saw and evaluated the patient. I reviewed the resident's note and discussed the case with the resident. I agree with the resident's findings and plan as documented. SUBJECTIVE:52yo M with PMH DM, dyslipidemia and recently diagnosed perirectal abscess sent to the ER today for routine labs showing hyperglycemia. Was at GI clinic yesterday where labs were drawn and was called today to come to the ER. pt states other than urinary frequency has no symptoms. was found to be taking metformin once a day and not BID as prescribed. On CT scan yesterday shown to have 5.2x3.9x8.4 cm abscess in L perineum and was told to f/u with surgeon. pt states he has constipation for the past 3 months and thats why he saw GI. BM have been very soft "like baby poop" with intermittent black. denies CP, SOB, fever, chills, N/V, dysuria, foul odor. mother dx with colon cancer in her 60' s. OBJECTIVE: Last Vital Signs Temp Pulse Resp BP Pulse Ox 97.7 F 88 16 135/90 100 06/28/17 14:50 06/28/17 14:50 06/28/17 14:50 06/28/17 14:50 06/28/17 14:50 General NAD CV S1 S2 RRR no murmrur/rub/gallop Lungs CTA B/L no wheezing/rales/rhonchi Abdomen soft +suprapubic tenderness slightly distended Rectal (refused by me since just done by resident) informed by resident to have good rectal tone no hemrrhoids +stool in rectal vault negative for blood no prostatmegaly. L perineal area is erythematous and firm and tender ASSESSMENT AND PLAN: 52yo M with PMH DM, dyslipidemia and recently diagnosed perirectal abscess sent to the ER today for routine labs showing hyperglycemia 1. Sepsis due to UTI and derek-rectal abscess- medicine admission. initiate sepsis protocol. Start NS at 30cc/Kg/H with initial 2-3L bolus. received Ceftriaxone and flagyl recommended by surgeon. contacted IR who will go for IR drainage in the AM. surgery and GI consulted. Check UCx and Bcx. pain control 2. Hyperglycemia- due to incorrect usage of home medication. acetone negative. no AG. responded well to 4 units of insulin. check A1c. iss, bgm. hold oral agents 3. Pseudohypoglycemia- corrected Na 142 4. Constipation- likely due to derek-rectal abscess and pain on defecation however can not r/o mass. +family hx for cancer. start miralax and stool softeners. will need colonoscopy inpatient vs outpatient per GI 5. Dyslipidemia- not on statins. check lipid panel 6. DVT ppx- hep sq
[2017-06-28] MEDS ORDERED: SODIUM CHLORIDE 1,000 ML IV SCH (16:00)
[2017-06-28] MEDS: HEPARIN NA (PORCINE) 5,000 UNITS/ML 1ML VIAL SQ SCH ×2 (16:43→21:25)
[2017-06-28] MEDS ORDERED: INSULIN (NOVOLOG) ASPART 100 UNITS/ML 10ML VIAL ONE ×2 (16:56→21:28)
[2017-06-28] MEDS: INSULIN SLIDING SCALE (NOVOLOG) 1 VIAL SQ SCH ×2 (16:59→21:35)
[2017-06-28 19:49] LABS: INR 1.14 (0.82-1.09); PROTHROMBIN TIME (PATIENT) 12.9 SEC (9.98-11.88)
[2017-06-28] MEDS: POLYETHYLENE GLYCOL 3350 119 GM BTL PO SCH (21:26)
[2017-06-29] MEDS: HEPARIN NA (PORCINE) 5,000 UNITS/ML 1ML VIAL SQ SCH ×3 (06:36→21:32)
[2017-06-29] MEDS: INSULIN SLIDING SCALE (NOVOLOG) 1 VIAL SQ SCH ×4 (06:37→21:32)
[2017-06-29 07:42] LABS: BASO % 0.4 % (0-2.0); EOS % 0.6 % (0-4.5); HEMATOCRIT 32.8 % (35.4-49); HEMOGLOBIN 11.1 GM/dL (11.7-16.9); LYMPH % 9.8 % (8-40); MCH 27.1 pg (25.7-33.7); MCHC 33.7 g/dl (32.0-35.9); MEAN CELL VOLUME 80.4 fl (80-96); MEAN PLT VOLUME 7.9 fl (7.5-11.1); MONO % 5.9 % (3.8-10.2); NEUT % 83.3 % (42.8-82.8); PLATELET COUNT 382 K/MM3 (134-434); RBC 4.08 M/mm3 (4.00-5.60); RDW 13.6 % (11.9-15.9); WHITE BLOOD COUNT 13.5 K/mm3 (4.0-10.0)
[2017-06-29 08:55] LABS: ALBUMIN 2.2 g/dl (3.4-5.0); ALK PHOS 134 U/L (45-117); ANION GAP 12 (8-16); BILIRUBIN,TOTAL 0.2 mg/dL (0.2-1.0); BLOOD UREA NITROGEN 12 mg/dL (7-18); CALCIUM 8.4 mg/dL (8.5-10.1); CHLORIDE 103 mmol/L (98-107); CO2 24 mmol/L (21-32); CREATININE 0.7 mg/dL (0.7-1.3); GLUCOSE,RANDOM 230 mg/dL (74-106); PHOSPHOROUS 2.7 mg/dL (2.5-4.9); POTASSIUM 4.1 mmol/L (3.5-5.1); SGOT/AST 9 U/L (15-37); SGPT/ALT 13 U/L (12-78); SODIUM 139 mmol/L (136-145); TOT PROT 6.1 g/dl (6.4-8.2)
[2017-06-29 09:15] LABS: CHOLESTEROL 185 mg/dL (50-200); HDL CHOLESTEROL 59 mg/dL (40-60); LDL CHOLESTEROL (ONLY SJRH) 104 mg/dL (5-100); TRIGLYCERIDES 146 mg/dL (35-160)
[2017-06-29] MEDS ORDERED: POLYETHYLENE GLYCOL 3350 119 GM BTL PO SCH (10:00)
[2017-06-29] MEDS: CEFTRIAXONE 1 G/50 ML PREMIX 50 ML IVPB SCH (10:09)
[2017-06-29] MEDS: POLYETHYLENE GLYCOL 3350 119 GM BTL PO SCH ×2 (10:29→21:33)
[2017-06-29] MEDS: BISACODYL 5 MG TABLET.DR (FP) PO SCH (10:29)
--- NOTE | 2017-06-29 12:01 | CONS ---
DATE OF CONSULTATION: 06/29/2017 REASON FOR CONSULTATION: Perirectal abscess. BRIEF HISTORY: This is a 52-year-old male, diabetic and alcoholic, who had an outpatient CAT scan done by his large sheetfed press operator, showing a large, deep, perirectal abscess traveling into the pelvis. He also was noted to have elevated blood glucoses by his area loss prevention manager and was sent in to the emergency room for management of that. While in the hospital, request was made for surgical evaluation of this perirectal abscess. Due to the deep location of the abscess, recommendation was for IR drainage of this abscess, and that is scheduled for today. PAST MEDICAL HISTORY: Significant for diabetes, alcohol abuse, and hyperlipidemia. PAST SURGICAL HISTORY: Nil. ALLERGIES: He has no known drug allergies. SOCIAL HISTORY: Positive for quitting alcohol. Negative for tobacco. FAMILY HISTORY: Significant for a mother with colon cancer. HOME MEDICATIONS: Have been reviewed. They include metformin, MiraLAX, and Dulcolax. REVIEW OF SYSTEMS: General: Denies fatigue or malaise. Cardiac: Denies chest pain or palpitations. Respiratory: Denies shortness of breath or wheeze. Gastrointestinal: Admits to diarrhea after eating chocolate. Admits to weight loss. Admits to perianal pain. Genitourinary: Denies dysuria. Musculoskeletal: Denies joint pain and joint swelling. Psychiatric: Denies anxiety, depression, and hearing voices. PHYSICAL EXAMINATION: General: This is a thin, 52-year-old male in no distress. Vital Signs: He is afebrile. His vital signs are stable. HEENT: His head is normocephalic, with poor dentition. Neck: Supple. Chest: Clear. Abdomen: Soft, nontender. Extremities: No edema. Anus: He has an area of fluctuance near the 5 o'clock position near his coccyx. He has no external hemorrhoids. His digital rectal exam is deferred due to pain. LABORATORY DATA: On review of his laboratories, his white blood cell count was 14 on admission. It is 13 today. Coagulation profile is normal. Chemistries show glucose of 230. Albumin is low at 2.2. IMAGING: On review of his imaging, he has a CAT scan of his abdomen and pelvis done on June 26. At that time, it shows a cystic, multiloculated lesion within the left perineum suggesting an abscess. The wearing apparel shaker opines that this could be a perirectal recess or a prostatic abscess. Malignancy is less likely. There are incidental gallstones noted on the CAT scan. ASSESSMENT: A 52-year-old male with perianal pain, uncontrolled diabetes, CAT scan suggesting an abscess in the perirectal area. This is a deep, loculated abscess and unlikely to be properly addressed surgically. I agree with interventional radiology drainage of this abscess. Patient will eventually need a colonoscopy to rule out causes of the abscess, including inflammatory bowel disease and malignancy. However, the most likely cause is idiopathic. As far as the gallstones, the patient does not have symptoms, and this will only need to be addressed if he develops symptomatic cholelithiasis. Currently, the patient is on Rocephin antibiotic. Would recommend continuing Flagyl with that as well. DO SHYLA MILLER/[id number]
[2017-06-29] MEDS ORDERED: INSULIN (NOVOLOG) ASPART 100 UNITS/ML 10ML VIAL ONE ×2 (12:29→16:19)
--- NOTE | 2017-06-29 13:18 | PN ---
Physical Exam: SUBJECTIVE: Patient seen and examined. Pt has no c/o. Pt not taking any medication for pain as abscess does not bother him so long as he does not sit on it. Pt denies chest pain, sob, abdominal pain, fever, chills. Pt's derek-rectal abscess was drained by IR today, and a FER drain placed. OBJECTIVE: Vital Signs Period Temp Pulse Resp BP Sys/Hanson Pulse Ox Last 24 Hr 97.7 F-99.2 F 68-97 16-20 135-179/70-99 97-100 GENERAL: Awake, alert, and fully oriented, in no acute distress. LUNGS: Breath sounds equal, clear to auscultation bilaterally. No wheezes, and no crackles. No accessory muscle use. HEART: Regular rate and rhythm, normal S1 and S2 without murmur, rub or gallop. ABDOMEN: Soft, nontender, not distended, normoactive bowel sounds, no guarding, no suprapubic tenderness. LOWER EXTREMITIES: Warm, well-perfused. No calf tenderness. No peripheral edema. PSYCHIATRIC: Cooperative. Good eye contact. Appropriate mood and affect. SKIN: Left perineal area nonerythematous with 3x3cm firm and tender region surrounding by ~7x7cm region of swelling. Upon reassessment this afternoon, pt has a FER drain at site draining purulent fluid. Laboratory Results - last 24 hr 06/28/17 06/28/17 06/28/17 13:38 16:37 17:00 WBC RBC Hgb Hct MCV MCH MCHC RDW Plt Count MPV Neutrophils % Lymphocytes % Monocytes % Eosinophils % Basophils % PT with INR INR Sodium Potassium Chloride Carbon Dioxide Anion Gap BUN Creatinine Creat Clearance w eGFR POC Glucometer [phone] Random Glucose Hemoglobin A1c % Lactic Acid 0.9 Calcium Phosphorus Magnesium Total Bilirubin AST ALT Alkaline Phosphatase Total Protein Albumin Triglycerides Cholesterol Total LDL Cholesterol HDL Cholesterol Stool Occult Blood 06/28/17 06/28/17 06/28/17 19:00 21:24 Unknown WBC RBC Hgb Hct MCV MCH MCHC RDW Plt Count MPV Neutrophils % Lymphocytes % Monocytes % Eosinophils % Basophils % PT with INR 12.90 H INR 1.14 Sodium Potassium Chloride Carbon Dioxide Anion Gap BUN Creatinine Creat Clearance w eGFR POC Glucometer 326 Random Glucose Hemoglobin A1c % Lactic Acid Calcium Phosphorus Magnesium Total Bilirubin AST ALT Alkaline Phosphatase Total Protein Albumin Triglycerides Cholesterol Total LDL Cholesterol HDL Cholesterol Stool Occult Blood Negative 06/29/17 06/29/17 06/29/17 06:30 06:30 06:30 WBC 13.5 H RBC 4.08 Hgb 11.1 L D Hct 32.8 L MCV 80.4 MCH 27.1 MCHC 33.7 RDW 13.6 Plt Count 382 D MPV 7.9 Neutrophils % 83.3 H Lymphocytes % 9.8 D Monocytes % 5.9 Eosinophils % 0.6 Basophils % 0.4 PT with INR INR Sodium 139 Potassium 4.1 Chloride 103 D Carbon Dioxide 24 Anion Gap 12 BUN 12 D Creatinine 0.7 D Creat Clearance w eGFR > 60 POC Glucometer Random Glucose 230 H D Hemoglobin A1c % 13.4 H Lactic Acid Calcium 8.4 L Phosphorus 2.7 Magnesium 2.0 Total Bilirubin 0.2 AST 9 L D ALT 13 Alkaline Phosphatase 134 H D Total Protein 6.1 L Albumin 2.2 L D Triglycerides Cholesterol Total LDL Cholesterol HDL Cholesterol Stool Occult Blood 06/29/17 06/29/17 06/29/17 06:30 06:35 12:27 WBC RBC Hgb Hct MCV MCH MCHC RDW Plt Count MPV Neutrophils % Lymphocytes % Monocytes % Eosinophils % Basophils % PT with INR INR Sodium Potassium Chloride Carbon Dioxide Anion Gap BUN Creatinine Creat Clearance w eGFR POC Glucometer 233 320 Random Glucose Hemoglobin A1c % Lactic Acid Calcium Phosphorus Magnesium Total Bilirubin AST ALT Alkaline Phosphatase Total Protein Albumin Triglycerides 146 Cholesterol 185 Total LDL Cholesterol 104 H HDL Cholesterol 59 Stool Occult Blood Active Medications Generic Name Dose Route Start Last Admin Trade Name Freq PRN Reason Stop Dose Admin Acetaminophen 650 mg 06/28/17 14:47 Tylenol - PO Q4H PRN PAIN LEVEL 6-10 Bisacodyl 5 mg 06/29/17 10:00 06/29/17 10:29 Dulcolax - PO 5 mg DAILY PASCUAL Administration Heparin Sodium (Porcine) 5,000 unit 06/28/17 15:00 06/29/17 06:36 Heparin - SQ Not Given TID PASCUAL Sodium Chloride 1,000 mls @ 100 mls/hr 06/28/17 16:00 06/28/17 17:54 Normal Saline - IV 100 mls/hr ASDIR PASCUAL Administration CEFTRIAXONE 1 G/50 ML PREMIX 50 mls @ 100 mls/hr 06/29/17 10:00 06/29/17 10: 09 Ceftriaxone 1 Gm-D5w Bag IVPB 100 mls/hr DAILY PASCUAL Administration Metronidazole 500 mg in 100 mls @ 100 mls/hr 06/28/17 23:00 06/29/17 10:06 Flagyl 500mg Premixed Ivpb - IVPB 100 mls/hr Q8H-IV PASCUAL Administration Insulin Aspart 1 vial 06/28/17 16:30 06/29/17 12:31 Novolog Vial Sliding Scale - SQ 8 unit ACHS PASCUAL Administration Protocol Insulin Detemir 10 units 06/30/17 07:00 Levemir Vial SQ AM PASCUAL Polyethylene Glycol 17 gm 06/28/17 22:00 06/29/17 10:29 Miralax (For Daily Use) - PO 17 gm BID PASCUAL Administration ASSESSMENT/PLAN: 52M with PMH of DM (diagnosed last month), htn, hld, presents with recently diagnosed perirectal abscess and hyperglycemia, admitted for sepsis. # sepsis 2/2 perirectal abscess and UTI - s/p drainage by IR (Dr. Mead) on 06/29/17 with FER drain placed - IR instructions for FER drain: flush with 5ml NS q6hr, maintain drain until only ~5ml/day, then return to IR for removal. - Day 2 of IV Ceftriaxone and IV Flagyl - f/u blood and urine cultures - lactic acid wnl - Surgery (Dr. Sawant) recs appreciated - pain control with Tylenol prn # hyperglycemia / DM - BGMs - Novolog SSI - Levemir 10U daily added - hold oral agents for now - hgba1c 13.6 # constipation - likely 2/2 derek-rectal abscess related to pain on defecation - (+) family hx for colon ca - GI (Dr. Munoz) recs appreciated: colonoscopy after abscess drainage, possibly as outpatient - continue home meds of Bisacodyl and Miralax # hld - [place] Risk Score 10.7% - rec add Lipitor # htn - rec add Lisinopril # FEN - Fluids: po - Electrolytes: wnl - Nutrition: diabetic diet # Prophylaxis - DVT ppx with Heparin TID - deconditioning ppx with PT Visit type - Emergency Visit Emergency Visit: Yes ED Registration Date: 06/28/17 Care time: The patient presented to the Emergency Department on the above date and was hospitalized for further evaluation of their emergent condition. - New Patient This patient is new to me today: No - Critical Care Critical Care patient: No
--- NOTE | 2017-06-29 13:39 | PN ---
Teaching Attending Note Name of Resident: Claudette Chin ATTENDING PHYSICIAN STATEMENT I saw and evaluated the patient. I reviewed the resident's note and discussed the case with the resident. I agree with the resident's findings and plan as documented. SUBJECTIVE: states pain is controlled when he does not lay on that area. denies Cp, SOB, fever, chills, N/V/C/D OBJECTIVE: Last Vital Signs Temp Pulse Resp BP Pulse Ox 98.4 F 87 18 163/98 100 06/29/17 12:20 06/29/17 12:20 06/29/17 12:20 06/29/17 12:20 06/29/17 11:48 General NAD Rectal R perirectal area is firm and tender no erythema + fluctuance that extend torwards the rectum. ASSESSMENT AND PLAN: 52yo M with PMH DM, dyslipidemia and recently diagnosed perirectal abscess sent to the ER today for routine labs showing hyperglycemia 1. Sepsis due to UTI and derek-rectal abscess-NPO awaiting drainage by IR. on Ceftriaxone/Flagyl. can d/c IVF after drainage. will need colonoscopy after medically optimized inpatient vs outpatient. GI and surgery on board. cont pain control. F/u UCx and Bcx. pain control 2. DM- A1c 13.4. improved here. will need to start levemir tonight. explained will need insulin going forward as pills wont control his sugars. teaching by RN on how to inject. nutritional eval. cont iss, bgm. 3. Pseudohypoglycemia- resolved 4. HTN- newly diagnosed here. can be underlying pain factor however will need medications. start lisinoprik 5mg (proteinuria). 5. Dyslipidemia- LDL above goal given risk factors (HTN, DM, +smoking). start lipitor high intensity 6. Constipation- improved. cont stool softeners. 7. Dyslipidemia- not on statins. check lipid panel 8. DVT ppx- hep sq
[2017-06-29] MEDS: LISINOPRIL 5 MG TABLET (FP) PO SCH (14:21)
--- NOTE | 2017-06-29 15:52 | PN ---
Progress Note, Physician History of Present Illness: s/p perirectal abscess drainage. Feels better. Eating outside food. - Current Medication List Current Medications: Active Medications Acetaminophen (Tylenol -) 650 mg PO Q4H PRN PRN Reason: PAIN LEVEL 6-10 Atorvastatin Calcium (Lipitor -) 40 mg PO HS [facility] Bisacodyl (Dulcolax -) 5 mg PO DAILY [facility] Last Admin: 06/29/17 10:29 Dose: 5 mg Heparin Sodium (Porcine) (Heparin -) 5,000 unit SQ TID [facility] Last Admin: 06/29/17 14:21 Dose: 5,000 unit Sodium Chloride (Normal Saline -) 1,000 mls @ 100 mls/hr IV ASDIR [facility] Last Admin: 06/28/17 17:54 Dose: 100 mls/hr CEFTRIAXONE 1 G/50 ML PREMIX (Ceftriaxone 1 Gm-D5w Bag) 50 mls @ 100 mls/hr IVPB DAILY [facility] Last Admin: 06/29/17 10:09 Dose: 100 mls/hr Metronidazole (Flagyl 500mg Premixed Ivpb -) 500 mg in 100 mls @ 100 mls/hr IVPB Q8H-IV [facility] Last Admin: 06/29/17 10:06 Dose: 100 mls/hr Insulin Aspart (Novolog Vial Sliding Scale -) 1 vial SQ ACHS [facility] PRN Reason: Protocol Last Admin: 06/29/17 12:31 Dose: 8 unit Insulin Detemir (Levemir Vial) 10 units SQ AM [facility] Lisinopril (Prinivil) 5 mg PO DAILY [facility] Last Admin: 06/29/17 14:21 Dose: 5 mg Polyethylene Glycol (Miralax (For Daily Use) -) 17 gm PO BID [facility] Last Admin: 06/29/17 10:29 Dose: 17 gm - Objective Vital Signs: Vital Signs Temperature 98.8 F 06/29/17 14:46 Pulse Rate 95 H 06/29/17 14:46 Respiratory Rate 18 06/29/17 12:20 Blood Pressure 155/90 06/29/17 14:46 O2 Sat by Pulse Oximetry (%) 100 06/29/17 11:48 Labs: CBC, BMP 06/29/17 06:30 06/29/17 06:30 INR, PTT INR 1.14 (0.82-1.09) 06/28/17 19:00 Problem List - Problems (1) Perirectal abscess Code(s): K61.1 - RECTAL ABSCESS Assessment/Plan 52M with uncontrolled DM and perirectal abscess, s/p drainage and pig-tail catheter. Colonoscopy as OP ? for Abx after drainage blood glucose control per primary team
[2017-06-29] MEDS: INSULIN DETEMIR 100 UNITS/ML MDV SQ SCH (21:32)
[2017-06-29] MEDS: ATORVASTATIN CA 40 MG TABLET (FP) PO SCH (21:32)
[2017-06-30] MEDS: INSULIN SLIDING SCALE (NOVOLOG) 1 VIAL SQ SCH ×4 (06:39→21:16)
[2017-06-30] MEDS: HEPARIN NA (PORCINE) 5,000 UNITS/ML 1ML VIAL SQ SCH ×3 (06:39→21:15)
[2017-06-30] MEDS ORDERED: INSULIN DETEMIR 100 UNITS/ML MDV SQ SCH (07:00)
[2017-06-30 07:49] LABS: HEMATOCRIT 27.9 % (35.4-49); HEMOGLOBIN 9.3 GM/dL (11.7-16.9); MCHC 33.5 g/dl (32.0-35.9); MEAN CELL VOLUME 80.4 fl (80-96); MEAN PLT VOLUME 7.6 fl (7.5-11.1); PLATELET COUNT 355 K/MM3 (134-434); RBC 3.46 M/mm3 (4.00-5.60); RDW 13.5 % (11.9-15.9); WHITE BLOOD COUNT 11.2 K/mm3 (4.0-10.0)
[2017-06-30] MEDS ORDERED: PT OWN MED DRAWER 7, Y5N ONE (09:34)
[2017-06-30] MEDS: LISINOPRIL 5 MG TABLET (FP) PO SCH (09:47)
[2017-06-30] MEDS: BISACODYL 5 MG TABLET.DR (FP) PO SCH (09:47)
[2017-06-30] MEDS: CEFTRIAXONE 1 G/50 ML PREMIX 50 ML IVPB SCH (09:47)
[2017-06-30] MEDS: POLYETHYLENE GLYCOL 3350 119 GM BTL PO SCH ×2 (10:04→21:16)
[2017-06-30] MEDS ORDERED: INSULIN (NOVOLOG) ASPART 100 UNITS/ML 10ML VIAL ONE ×3 (10:58→21:11)
--- NOTE | 2017-06-30 11:20 | PN ---
Teaching Attending Note Name of Resident: Bob Wang ATTENDING PHYSICIAN STATEMENT I saw and evaluated the patient. I reviewed the resident's note and discussed the case with the resident. I agree with the resident's findings and plan as documented. SUBJECTIVE:requesting to go home. states pain is improved with catheter. denies CP, SOB, fever, chills, N/V/C/D OBJECTIVE: Last Vital Signs Temp Pulse Resp BP Pulse Ox 98.5 F 85 17 136/76 100 06/30/17 05:47 06/30/17 05:47 06/30/17 05:47 06/30/17 05:47 06/29/17 21:00 Intake & Output 06/27/17 06/28/17 06/29/17 06/30/17 23:59 23:59 23:59 23:59 Intake Total 1100 3320 300 Output Total 95 40 Balance 1100 3225 260 Weight 151 lb General NAD genital. refused. FER drain seen with grayish purulent discharge ASSESSMENT AND PLAN: 52yo M with PMH DM, dyslipidemia and recently diagnosed perirectal abscess sent to the ER today for routine labs showing hyperglycemia 1. Sepsis due to UTI and derek-rectal abscess-s/p FER drain with 90cc output of esparza purulent material. cx sent to micro. on Ceftriaxone/Flagyl day 3. will cont current management until cx report. will need colonoscopy as outpatient. RN to teach pt how to empty drain. F/u UCx and Bcx. pain control 2. DM- A1c 13.4. improved. started on levemir 5 units last night with good response. cont iss, bgm. 3. Pseudohypoglycemia- resolved 4. HTN- improved. cont lisinopril 5mg. counseled on new medication 5. Dyslipidemia- started statin here. counseled on new medication 6. Constipation- improved. cont stool softeners. 7. continuous nicotine dependence- informed him he can not leave the premises to smoke. educated on risks of smoking. refused nicotine patch 8. DVT ppx- hep sq
--- NOTE | 2017-06-30 11:47 | PN ---
Physical Exam: SUBJECTIVE: Patient seen and examined. Pt reports feeling better, pain has improved with drain, and wanting to go home. Pt denies chest pain, sob, abdominal pain, fever, chills, nausea, vomiting, constipation, diarrhea. OBJECTIVE: Vital Signs Period Temp Pulse Resp BP Sys/Hanson Pulse Ox Last 24 Hr 98.4 F-99.6 F 84-97 17-20 136-179/76-98 100-100 GENERAL: Awake, alert, and fully oriented, in no acute distress. LUNGS: Breath sounds equal, clear to auscultation bilaterally. No wheezes, and no crackles. No accessory muscle use. HEART: Regular rate and rhythm, normal S1 and S2 without murmur, rub or gallop. ABDOMEN: Soft, nontender, not distended, no guarding, no suprapubic tenderness. LOWER EXTREMITIES: Warm, well-perfused. No calf tenderness. No peripheral edema. PSYCHIATRIC: Cooperative. Good eye contact. Appropriate mood and affect. SKIN: Left perineal area with FER drain and dressing CDI. Laboratory Results - last 24 hr 06/29/17 06/29/17 06/29/17 12:27 16:13 21:30 WBC RBC Hgb Hct MCV MCH MCHC RDW Plt Count MPV POC Glucometer 320 350 291 06/30/17 06/30/17 06:35 06:38 WBC 11.2 H RBC 3.46 L Hgb 9.3 L D Hct 27.9 L MCV 80.4 MCH 27.0 MCHC 33.5 RDW 13.5 Plt Count 355 MPV 7.6 POC Glucometer 134 Active Medications Generic Name Dose Route Start Last Admin Trade Name Igorq PRN Reason Stop Dose Admin Acetaminophen 650 mg 06/28/17 14:47 Tylenol - PO Q4H PRN PAIN LEVEL 6-10 Atorvastatin Calcium 40 mg 06/29/17 22:00 06/29/17 21:32 Lipitor - PO 40 mg HS PASCUAL Administration Bisacodyl 5 mg 06/29/17 10:00 06/30/17 09:47 Dulcolax - PO 5 mg DAILY PASCUAL Administration Heparin Sodium (Porcine) 5,000 unit 06/28/17 15:00 06/30/17 06:39 Heparin - SQ 5,000 unit TID PASCUAL Administration CEFTRIAXONE 1 G/50 ML PREMIX 50 mls @ 100 mls/hr 06/29/17 10:00 06/30/17 09: 47 Ceftriaxone 1 Gm-D5w Bag IVPB 100 mls/hr DAILY PASCUAL Administration Metronidazole 500 mg in 100 mls @ 100 mls/hr 06/28/17 23:00 06/30/17 09:47 Flagyl 500mg Premixed Ivpb - IVPB 100 mls/hr Q8H-IV PASCUAL Administration Insulin Aspart 1 vial 06/28/17 16:30 06/30/17 11:01 Novolog Vial Sliding Scale - SQ 4 unit ACHS PASCUAL Administration Protocol Insulin Detemir 5 units 06/29/17 22:00 06/29/17 21:32 Levemir Vial SQ 5 units HS PASCUAL Administration Lisinopril 5 mg 06/29/17 13:45 06/30/17 09:47 Prinivil PO 5 mg DAILY PASCUAL Administration Polyethylene Glycol 17 gm 06/28/17 22:00 06/30/17 10:04 Miralax (For Daily Use) - PO 17 gm BID PASCUAL Administration ASSESSMENT/PLAN: 52M with PMH of DM (diagnosed last month), htn, hld, presents with recently diagnosed perirectal abscess and hyperglycemia, admitted for sepsis. # sepsis 2/2 perirectal abscess and UTI - s/p drainage by IR (Dr. Mead) on 06/29/17 with FER drain placed - IR instructions for FER drain: flush with 5ml NS q6hr, maintain drain until only ~5ml/day, then return to IR for removal. - nurse to teach pt how to empty drain - FER drained 90ml of purulent fluid yesterday - f/u wound culture - leukocytosis continues to trend down - Day 3 of IV Ceftriaxone and IV Flagyl - blood culture (-) x 24 hrs - urine culture (+) for lactose fermenting neg bacilli - pain control with Tylenol prn # acute anemia - f/u repeat cbc - no overt s/s of bleeding # hyperglycemia / DM - BGMs - Novolog SSI - Levemir 5U HS - hold oral agents for now # constipation - likely 2/2 derek-rectal abscess related to pain on defecation - (+) family hx for colon ca - GI (Dr. Munoz) recs appreciated: colonoscopy as outpatient - pt had 2 bowel movements yesterday - continue home meds of Bisacodyl and Miralax # hld - continue Lipitor # htn - continue Lisinopril # FEN - Fluids: po - Electrolytes: wnl - Nutrition: diabetic diet # Prophylaxis - DVT ppx with Heparin TID - deconditioning ppx with PT Visit type - Emergency Visit Emergency Visit: Yes ED Registration Date: 06/28/17 Care time: The patient presented to the Emergency Department on the above date and was hospitalized for further evaluation of their emergent condition. - New Patient This patient is new to me today: No - Critical Care Critical Care patient: No
[2017-06-30] MEDS ORDERED: NICOTINE POLACRILEX 2 MG GUM BUC PRN (14:00)
--- NOTE | 2017-06-30 14:06 | PN ---
Physical Exam: SUBJECTIVE: Patient seen and examined at bedside. No overnight events, no new complaints. S/P IR guided drainage with pigtail placement. Pain is well controlled. Denies CP,TINAJERO, SOB, abdominal pain, N/V. OBJECTIVE: Vital Signs Period Temp Pulse Resp BP Sys/Hanson Pulse Ox Last 24 Hr 97.8 F-99.6 F 77-95 17-20 135-155/76-97 98-100 GENERAL: AAOx3, NAD LUNGS: CTAB no wheezing or rales. HEART:RRR, NL S1, S2 without murmur, rub or gallop. ABDOMEN: Soft, NT/ND, NL BS EXTREMITIES: 2+ pulses, warm, well-perfused, no edema. Rectum- perirectal abscess with pigtail drain in place draining purulent fluid. Laboratory Results - last 24 hr 06/29/17 06/29/17 06/30/17 16:13 21:30 06:35 WBC 11.2 H RBC 3.46 L Hgb 9.3 L D Hct 27.9 L MCV 80.4 MCH 27.0 MCHC 33.5 RDW 13.5 Plt Count 355 MPV 7.6 POC Glucometer 350 291 06/30/17 06/30/17 06:38 10:55 WBC RBC Hgb Hct MCV MCH MCHC RDW Plt Count MPV POC Glucometer 134 225 Active Medications Generic Name Dose Route Start Last Admin Trade Name Freq PRN Reason Stop Dose Admin Acetaminophen 650 mg 06/28/17 14:47 Tylenol - PO Q4H PRN PAIN LEVEL 6-10 Atorvastatin Calcium 40 mg 06/29/17 22:00 06/29/17 21:32 Lipitor - PO 40 mg HS PASCUAL Administration Bisacodyl 5 mg 06/29/17 10:00 06/30/17 09:47 Dulcolax - PO 5 mg DAILY PASCUAL Administration Heparin Sodium (Porcine) 5,000 unit 06/28/17 15:00 06/30/17 06:39 Heparin - SQ 5,000 unit TID PASCUAL Administration CEFTRIAXONE 1 G/50 ML PREMIX 50 mls @ 100 mls/hr 06/29/17 10:00 06/30/17 09: 47 Ceftriaxone 1 Gm-D5w Bag IVPB 100 mls/hr DAILY PASCUAL Administration Metronidazole 500 mg in 100 mls @ 100 mls/hr 06/28/17 23:00 06/30/17 09:47 Flagyl 500mg Premixed Ivpb - IVPB 100 mls/hr Q8H-IV PASCUAL Administration Insulin Aspart 1 vial 06/28/17 16:30 06/30/17 11:01 Novolog Vial Sliding Scale - SQ 4 unit ACHS PASCUAL Administration Protocol Insulin Detemir 5 units 06/29/17 22:00 06/29/17 21:32 Levemir Vial SQ 5 units HS PASCUAL Administration Lisinopril 5 mg 06/29/17 13:45 06/30/17 09:47 Prinivil PO 5 mg DAILY PASCUAL Administration Nicotine Polacrilex 4 mg 06/30/17 14:00 Nicorette Gum - BUC Q2H PRN NICOTINE REPLACEMENT RX Polyethylene Glycol 17 gm 06/28/17 22:00 06/30/17 10:04 Miralax (For Daily Use) - PO 17 gm BID PASCUAL Administration ASSESSMENT/PLAN: 52yo M with PMH DM, dyslipidemia and recently diagnosed perirectal abscess sent to the ER today for routine labs showing hyperglycemia. Problem List - Problems (1) Perirectal abscess Assessment/Plan: Sepsis 2/2 derek-rectal abscess and UTI * S/P IR drainage with pigtail in place, drained 130ml of purulent fluid. * C&S sent and pending. * Will be educated on how to manage drain. * Will continue with Ceftriaxone and Flagyl (day 3) (2) Hyperglycemia (3) Diabetes Assessment/Plan: HgbA1C 13.4 * ADA diet * Started on Levamir 5 units HS * ISS ACHS * BGM ACHS. * educated on proper injection technique. (4) Nicotine dependence Assessment/Plan: Given different options of patch or gum * Nicotine Gum 4mg (5) DVT prophylaxis Assessment/Plan: heparin SQ TID Visit type - Emergency Visit Emergency Visit: Yes ED Registration Date: 06/28/17 Care time: The patient presented to the Emergency Department on the above date and was hospitalized for further evaluation of their emergent condition. - New Patient This patient is new to me today: No - Critical Care Critical Care patient: No
[2017-06-30] MEDS: ATORVASTATIN CA 40 MG TABLET (FP) PO SCH (21:14)
[2017-06-30] MEDS: INSULIN DETEMIR 100 UNITS/ML MDV SQ SCH (21:15)
[2017-07-01] MEDS: HEPARIN NA (PORCINE) 5,000 UNITS/ML 1ML VIAL SQ SCH ×3 (05:54→21:46)
[2017-07-01] MEDS: INSULIN SLIDING SCALE (NOVOLOG) 1 VIAL SQ SCH ×4 (06:33→21:47)
[2017-07-01 08:04] LABS: HEMATOCRIT 28.1 % (35.4-49); HEMOGLOBIN 9.7 GM/dL (11.7-16.9); MCH 27.6 pg (25.7-33.7); MCHC 34.3 g/dl (32.0-35.9); MEAN CELL VOLUME 80.4 fl (80-96); PLATELET COUNT 363 K/MM3 (134-434); RDW 13.7 % (11.9-15.9); WHITE BLOOD COUNT 10.2 K/mm3 (4.0-10.0)
[2017-07-01] MEDS ORDERED: PT OWN MED DRAWER 7, Y5N ONE (09:48)
[2017-07-01] MEDS: CEFTRIAXONE 1 G/50 ML PREMIX 50 ML IVPB SCH (09:57)
[2017-07-01] MEDS: BISACODYL 5 MG TABLET.DR (FP) PO SCH (09:57)
[2017-07-01] MEDS: LISINOPRIL 5 MG TABLET (FP) PO SCH (09:57)
[2017-07-01] MEDS: POLYETHYLENE GLYCOL 3350 119 GM BTL PO SCH ×2 (10:05→21:52)
[2017-07-01] MEDS ORDERED: INSULIN DETEMIR 100 UNITS/ML MDV SQ ONE ×2 (10:32→11:27)
[2017-07-01] MEDS ORDERED: LISINOPRIL 5 MG TABLET (FP) PO ONE (10:33)
[2017-07-01] MEDS ORDERED: LISINOPRIL 10 MG TABLET (FP) PO SCH (10:33)
[2017-07-01] MEDS ORDERED: INSULIN (NOVOLOG) ASPART 100 UNITS/ML 10ML VIAL ONE ×2 (11:29→16:26)
[2017-07-01] MEDS ORDERED: ERTAPENEM SODIUM 1 GM/50 ML PRE-DOCKED IVPB SCH (11:45)
--- NOTE | 2017-07-01 12:17 | PN ---
Progress Note (short form) - Note Progress Note: ID consult dictated imp/reccd 52 year old man with DM- admitted for perineal abscess- s/p IR drainage on 06/29 he has a leona drain with brown drainage no surrounding erythema noted no fevers urine culture with kleb esbl music video producer abscess culture with kleb non esbl music video producer! would suggest switch to ertapenem for 48hours- todays dose and am dose, if drainage continues to decrease could switch to po bactrim ds bid and augmentin 875 bid for another 7 to 10 days- he will need diabetic teaching and VNS d/w hospitalist Problem List - Problems (1) Perirectal abscess Code(s): K61.1 - RECTAL ABSCESS (2) Diabetes Code(s): E11.9 - TYPE 2 DIABETES MELLITUS WITHOUT COMPLICATIONS Qualifiers: Diabetes mellitus type: other specified (including ELYSE) Diabetes mellitus terminal press operator insulin use: without terminal press operator use Diabetes mellitus complication status: with hyperglycemia Qualified Code(s): E13.65 - Other specified diabetes mellitus with hyperglycemia
--- NOTE | 2017-07-01 13:49 | PN ---
Progress Note (short form) - Note Progress Note: asymptomatic. requesting to go home. denies CP, SOB, fever, chills, N/V/C/D Current Medications Generic Name Dose Route Start Last Admin Trade Name Tamia PRN Reason Stop Dose Admin Acetaminophen 650 mg 06/28/17 14:47 Tylenol - PO Q4H PRN PAIN LEVEL 6-10 Atorvastatin Calcium 40 mg 06/29/17 22:00 06/30/17 21:14 Lipitor - PO 40 mg HS PASCUAL Administration Bisacodyl 5 mg 06/29/17 10:00 07/01/17 09:57 Dulcolax - PO 5 mg DAILY PASCUAL Administration Heparin Sodium (Porcine) 5,000 unit 06/28/17 15:00 07/01/17 05:54 Heparin - SQ 5,000 unit TID PASCUAL Administration Metronidazole 500 mg in 100 mls @ 100 mls/hr 06/28/17 23:00 07/01/17 10:02 Flagyl 500mg Premixed Ivpb - IVPB 100 mls/hr Q8H-IV PASCUAL Administration Ertapenem 1 gm/ Sodium 100 mls @ 200 mls/hr 07/01/17 12:45 Chloride IVPB DAILY PASCUAL Insulin Aspart 1 vial 06/28/17 16:30 07/01/17 11:31 Novolog Vial Sliding Scale - SQ 6 unit ACHS PASCUAL Administration Protocol Insulin Detemir 5 units 06/29/17 22:00 06/30/17 21:15 Levemir Vial SQ 5 units HS PASCUAL Administration Lisinopril 10 mg 07/01/17 10:33 Prinivil PO DAILY PASCUAL Nicotine Polacrilex 4 mg 06/30/17 14:00 06/30/17 15:38 Nicorette Gum - BUC 4 mg Q2H PRN Administration NICOTINE REPLACEMENT RX Polyethylene Glycol 17 gm 06/28/17 22:00 07/01/17 10:05 Miralax (For Daily Use) - PO 17 gm BID PASCUAL Administration Last Vital Signs Temp Pulse Resp BP Pulse Ox 98.2 F 77 20 137/88 98 07/01/17 05:30 07/01/17 05:30 06/30/17 23:38 07/01/17 05:30 06/30/17 21:00 General NAD genital. L buttock no erythema or fluctuance, area is soft. FER drain with esparza purulent material Microbiology 06/29/17 11:45 Gram Stain - Final Body Fluid - Other Body Fluid Culture - Preliminary Klebsiella Oxytoca 06/28/17 14:10 Urine Culture - Preliminary Urine - Urine Clean Catch Klebsiella Oxytoca - Esbl 06/28/17 14:10 Blood Culture - Preliminary Blood - Peripheral Venous NO GROWTH OBTAINED AFTER 48 HOURS, INCUBATION TO CONTINUE FOR 3 DAYS. 06/28/17 14:10 Blood Culture - Preliminary Blood - Peripheral Venous NO GROWTH OBTAINED AFTER 48 HOURS, INCUBATION TO CONTINUE FOR 3 DAYS. ASSESSMENT AND PLAN: 52yo M with PMH DM, dyslipidemia and recently diagnosed perirectal abscess sent to the ER today for routine labs showing hyperglycemia 1. Sepsis due to UTI and derek-rectal abscess +ESBL Klebsiella-s/p FER drain with 125cc output of esparza purulent material. consulted ID. will switch to ertapenem. for 48H and then d/c home on oral medication. Drain management to be taught to pt and .VNS set up. will need to f/u with Surgery for drain removal. 2. DM- A1c 13.4. improved. raúl increase to levemir 5 units BID. teaching pt how to self administer insulin. cont iss, bgm. 3. Pseudohypoglycemia- resolved 4. HTN- above goal. increase lisinopril to 10mg. 5. Dyslipidemia-statin 6. Constipation- improved. cont stool softeners. 7. continuous nicotine dependence- educated on risks of smoking. refused nicotine patch 8. DVT ppx- hep sq 9. pt wanted to leave today. informed him its in his best interest to receive at least 48H of IV medication for ESBL infection. also pt need to learn how to manage drain and measure output and self administer insulin. spoke with present. reluctantly agreed to staying. verbalized understanding of importance of medication compliance and follow up. anticipate d/c tomorrow Visit type - Emergency Visit Emergency Visit: Yes ED Registration Date: 06/28/17 Care time: The patient presented to the Emergency Department on the above date and was hospitalized for further evaluation of their emergent condition. - New Patient This patient is new to me today: No - Critical Care Critical Care patient: No - Discharge Referral Referred to [facility] Med [facility].C[facility] No
[2017-07-01] MEDS: ERTAPENEM SODIUM 1 GM in SODIUM CHLORIDE 100 ML IVPB SCH (15:15)
[2017-07-01] MEDS: ATORVASTATIN CA 40 MG TABLET (FP) PO SCH (21:46)
[2017-07-01] MEDS: INSULIN DETEMIR 100 UNITS/ML MDV SQ SCH (21:46)
[2017-07-02] MEDS: INSULIN SLIDING SCALE (NOVOLOG) 1 VIAL SQ SCH ×2 (06:20→11:25)
[2017-07-02] MEDS: INSULIN DETEMIR 100 UNITS/ML MDV SQ SCH (06:21)
[2017-07-02] MEDS: HEPARIN NA (PORCINE) 5,000 UNITS/ML 1ML VIAL SQ SCH ×3 (06:21→13:00)
[2017-07-02 08:44] VITALS: BP 130/90; PULSE 73; TEMP 97.9
[2017-07-02] MEDS: ERTAPENEM SODIUM 1 GM in SODIUM CHLORIDE 100 ML IVPB SCH (10:06)
[2017-07-02] MEDS: POLYETHYLENE GLYCOL 3350 119 GM BTL PO SCH (10:07)
[2017-07-02] MEDS: BISACODYL 5 MG TABLET.DR (FP) PO SCH (10:07)
[2017-07-02] MEDS ORDERED: INSULIN DETEMIR 100 UNITS/ML MDV SQ ONE ×2 (10:35→11:55)
--- NOTE | 2017-07-02 11:05 | PN ---
Physical Exam: SUBJECTIVE: Patient seen and examined with drain drain from derek anal abscess (); today draining 25mls of serosanginous fluid : from around 7am to 9am. No new complaints, denies pain, fever, chills. Wants to go home. OBJECTIVE: Vital Signs Period Temp Pulse Resp BP Sys/Hanson Pulse Ox Last 24 Hr 97.5 F-99 F 70-79 18-20 130-145/84-92 98-99 GENERAL: The patient is awake, alert, and fully oriented, in no acute distress. LUNGS: Breath sounds equal, clear to auscultation bilaterally, no wheezes, no crackles, no accessory muscle use. HEART: Regular rate and rhythm, S1, S2 without murmur, rub or gallop. ABDOMEN: Soft, nontender, nondistended, normoactive bowel sounds, no guarding, no rebound, no hepatosplenomegaly, no masses. EXTREMITIES: 2+ pulses, warm, well-perfused, no edema. BUTTOCKS: left sided drain; serosanginous fluid; no erythema/swelling pus Laboratory Results - last 24 hr 07/01/17 07/01/17 07/01/17 11:17 16:42 21:45 POC Glucometer 276 221 206 07/02/17 06:19 POC Glucometer 85 Active Medications Generic Name Dose Route Start Last Admin Trade Name Igorq PRN Reason Stop Dose Admin Acetaminophen 650 mg 06/28/17 14:47 07/02/17 06:24 Tylenol - PO 650 mg Q4H PRN Administration PAIN LEVEL 6-10 Atorvastatin Calcium 40 mg 06/29/17 22:00 07/01/17 21:46 Lipitor - PO 40 mg HS PASCUAL Administration Bisacodyl 5 mg 06/29/17 10:00 07/02/17 10:07 Dulcolax - PO 5 mg DAILY PASCUAL Administration Heparin Sodium (Porcine) 5,000 unit 06/28/17 15:00 07/02/17 06:21 Heparin - SQ 5,000 unit TID PASCUAL Administration Ertapenem 1 gm/ Sodium 100 mls @ 200 mls/hr 07/01/17 12:45 07/02/17 10:06 Chloride IVPB 200 mls/hr DAILY PASCUAL Administration Insulin Aspart 1 vial 06/28/17 16:30 07/02/17 06:20 Novolog Vial Sliding Scale - SQ Not Given ACHS [facility] Protocol Insulin Detemir 5 units 07/01/17 22:00 07/02/17 06:21 Levemir Vial SQ Not Given BID@0700,2200 PASCUAL Lisinopril 10 mg 07/01/17 10:33 07/02/17 10:07 Prinivil PO 10 mg DAILY PASCUAL Administration Nicotine Polacrilex 4 mg 06/30/17 14:00 06/30/17 15:38 Nicorette Gum - BUC 4 mg Q2H PRN Administration NICOTINE REPLACEMENT RX Polyethylene Glycol 17 gm 06/28/17 22:00 07/02/17 10:07 Miralax (For Daily Use) - PO 17 gm BID PASCUAL Administration ASSESSMENT/PLAN: This is a 52 year old male with a medical history of uncontrolled diabetes, being treated for sepsis secondary to a derek rectal abscess. Patient wants to leave today, will discuss importance of one more day, for diabetic teaching and IV antibiotics. #sepsis sec to derek rectal abscess; resolving; on ertapenam day 2; ID on board; plan for Bactrim and Augmentin when ready for DC with vns services for drain care #uncontrolled DM; increased long acting insulin to 10U with insulin SS; dietary consult for further teaching; #HTN controlled with increase in lisinopril to 10mg po daily #HLD: con statin Disposition: plan for d/c tomorrow Case discussed with attending Dr. Ernestina Hernandez- PGY-2 Problem List - Problems (1) Perirectal abscess Code(s): K61.1 - RECTAL ABSCESS (2) Diabetes Code(s): E11.9 - TYPE 2 DIABETES MELLITUS WITHOUT COMPLICATIONS Qualifiers: Diabetes mellitus type: other specified (including ELYSE) Diabetes mellitus exterminator helper insulin use: without exterminator helper use Diabetes mellitus complication status: with hyperglycemia Qualified Code(s): E13.65 - Other specified diabetes mellitus with hyperglycemia Visit type - Emergency Visit Emergency Visit: Yes ED Registration Date: 06/28/17 Care time: The patient presented to the Emergency Department on the above date and was hospitalized for further evaluation of their emergent condition. - New Patient This patient is new to me today: Yes Date on this admission: 07/02/17 - Critical Care Critical Care patient: No
--- NOTE | 2017-07-02 13:25 | PN ---
Teaching Attending Note Name of Resident: Ashly Hernandez ATTENDING PHYSICIAN STATEMENT I saw and evaluated the patient. I reviewed the resident's note and discussed the case with the resident. I agree with the resident's findings and plan as documented. SUBJECTIVE:asymptomatic. requesting to go home. denies CP, SOB, fever, chills, N /V/C/D OBJECTIVE: Last Vital Signs Temp Pulse Resp BP Pulse Ox 97.9 F 73 18 130/90 99 07/02/17 08:00 07/02/17 08:00 07/02/17 08:00 07/02/17 08:00 07/02/17 09:00 Intake & Output 06/29/17 06/30/17 07/01/17 07/03/17 23:59 23:59 23:59 00:59 Intake Total 3320 1375 775 100 Output Total 95 125 30 30 Balance 3225 1250 745 70 General NAD Buttocksl +FER drain serosangenous drainage ASSESSMENT AND PLAN: 52yo M with PMH DM, dyslipidemia and recently diagnosed perirectal abscess sent to the ER today for routine labs showing hyperglycemia 1. Sepsis due to UTI and derek-rectal abscess +ESBL Klebsiella-s/p FER drain with 30 cc serosangenous drainage. on ertapenem day 2. can transition to Augemtin and bactrim for 7-10 days. FER drain management taught to pt. will need to f/u with surgery for drain removal. VNS set up. 2. DM- A1c 13.4. low sugars in the am. Will switch to levemir 10 units AM. d/w present importance of BGM monitoring and logging and to f/u with PMD this week for dose adjustment. pt demonstrated on how to inject himself in front of me. 3. Pseudohypoglycemia- resolved 4. HTN- improved. lisinopril 10mg 5. Dyslipidemia-statin 6. Constipation- improved. cont stool softeners. 7. continuous nicotine dependence- educated on risks of smoking. refused nicotine patch 8. DVT ppx- hep sq 9. lengthy discussion with the patient about taking medications appropriately and follow up appropriately. explained that if he is unable to control his sugars that the infection will not heal and worsen as well as the other sequelae of uncontrolled DM. instructed him on proper care of drain and injecting insulin.
--- NOTE | 2017-07-02 14:58 | CONS ---
DATE OF CONSULTATION: 07/01/2017 This is a 52-year-old man with recently diagnosed diabetes, history of hypertension, hyperlipidemia, who had been having severe constipation and perianal pain and he had been referred to GI. He has been placed on Augmentin and a CAT scan has been ordered. He was found to have a perirectal abscess, was advised admission. As well, he went to the corporate investigator, was noted to be hyperglycemic and referred to the ER. He never had any fever or chills and otherwise felt well. It is not clear if he took more than 1 dose of the Augmentin. He was admitted and underwent IR drainage of a perineal abscess on the . I am asked to see him today on the , when his urine culture was noted to have a Klebsiella oxytoca, ESBL positive. Of note, the fluid from the drainage is Klebsiella oxytoca as well but it has been reported as a sensitive Klebsiella. He is currently resting comfortably with a FER drain in place. He has no known drug allergies. His past medical history noted both for diabetes and hypercholesterolemia. Surgical history is negative. Family history is notable for colon cancer in his mother, father with diabetes. He had no known drug allergies. His medications as an outpatient were metformin, MiraLax, Colace, and the recently started Augmentin. SOCIAL HISTORY: He smokes 3 to 4 cigarettes a day. No history of alcohol or substance use. He was admitted and started on ceftriaxone and Flagyl. He was evaluated by Surgery and GI. PHYSICAL EXAMINATION: General: Currently he is resting comfortably. Vital Signs: Temperature 97.5. Pulse 74. Blood pressure 145/92. Respiratory rate 20. HEENT: Normocephalic. His eyes are anicteric. Neck: Supple. Lungs: Clear to auscultation. Heart: Regular rate and rhythm. Abdomen: Soft, nontender. He has a drain in his perineal area that is draining a reddish-brown cloudy fluid. He has no perineal erythema. He has minimal discomfort on palpation. Extremities: Without edema. White count on admission was 14.7, today 10.2, hemoglobin 9.7, platelets 363. His BUN and creatinine are normal. Urinalysis has 2+ leukocytes with 33 white cells. Cultures are as previously stated. He had a CAT scan done on the that was notable for a multilocular lesion in the left perineal area, which was suggestive of a fluid collection. In summary, this is a 52-year-old man admitted for perineal abscess, status post drainage on June 29. He has a FER drain with brown drainage, no surrounding erythema, no fevers. Urine culture with a Klebsiella, ESBL field producer; abscess culture with a Klebsiella, non-ESBL field producer. I would suggest that we assume that both are ESBL producers. Would switch to ertapenem for 48 hours, today's dose, and a dose in the morning. If the drainage continues to decrease, could switch to p.o. Bactrim b.i.d. and Augmentin 875 b.i.d. for another 7 to 10 days. He will need diabetic teaching and VNS as well. The case was discussed at length with the hospitalist. MELCHOR HENDRICKS M.D. [id number]
--- NOTE | 2017-07-02 18:29 | DS ---
Physical Exam: SUBJECTIVE: Patient seen and examined. Asymptomatic. Requesting to go home. Denies chest pain, sob, fever, chills, nausea, vomiting, constipation, diarrhea. OBJECTIVE: Vital Signs Period Temp Pulse Resp BP Sys/Hanson Pulse Ox Last 24 Hr 97.8 F-99 F 70-79 18-20 130-138/84-90 98-99 PHYSICAL EXAM GENERAL: The patient is awake, alert, and fully oriented, in no acute distress. LUNGS: Breath sounds equal, clear to auscultation bilaterally, no wheezes, no crackles, no accessory muscle use. HEART: Regular rate and rhythm, S1, S2 without murmur, rub or gallop. ABDOMEN: Soft, nontender, nondistended, no guarding, no rebound. EXTREMITIES: Warm, well-perfused, no edema. BUTTOCKS: Left sided drain; serosanginous fluid; no erythema/swelling pus LABS Laboratory Results - last 24 hr 07/01/17 07/02/17 07/02/17 21:45 06:19 11:21 POC Glucometer 206 85 216 HOSPITAL COURSE: Date of Admission:06/28/17 Date of Discharge: 07/02/17 52M with PMH of DM (diagnosed last month), htn, hld, presents with recently diagnosed perirectal abscess and hyperglycemia, admitted for sepsis. Pt received drainage with placement of FER drain by IR (Dr. Mead) on 06/29/17. IR instructions for FER drain: flush with 5ml NS q6hr, maintain drain until only ~ 5ml/day, then return to IR for removal. Pt received IV antibiotics. Pt received diabetes instructions from several doctors as well as a Registered Dietitian. Pt instructed on how to properly take oral and injectable medications and on a diabetic diet. Pt to f/u with GI (Dr. Munoz) outpatient for a colonoscopy. 06/26/17 Ab/Pel CT -> cystic multiloculated lesion within Left perineum suggesting abscess. Ddx: perirectal abscess vs abscess originating within prostate or seminal vesicle vs underlying malignancy. Gallstones sans cholecystitis. 06/28/17 CXR -> no acute disease Microbiology 06/28/17 14:10 Blood - Peripheral Venous Blood Culture - Preliminary NO GROWTH OBTAINED AFTER 96 HOURS, INCUBATION TO CONTINUE FOR 1 DAYS. 06/28/17 14:10 Blood - Peripheral Venous Blood Culture - Preliminary NO GROWTH OBTAINED AFTER 96 HOURS, INCUBATION TO CONTINUE FOR 1 DAYS. 06/28/17 14:10 Urine - Urine Clean Catch Urine Culture - Final Klebsiella Oxytoca - Esbl 06/29/17 11:45 Body Fluid - Other Gram Stain - Final 06/29/17 11:45 Body Fluid - Other Body Fluid Culture - Final Klebsiella Oxytoca 06/29/17 11:45 Body Fluid - Other Anaerobic Culture - Final NO ANAEROBES WERE ISOLATED Pt walked 100 ft with PT on 06/29/17. Pt stable for discharge home. Minutes to complete discharge: 35 Discharge Summary Reason For Visit: DM; HYPERGLYCEMIA; PERIRECTAL ABSCESS Condition: Improved - Instructions Diet, Activity, Other Instructions: You were treated for high blood sugar and for a derek-rectal abscess. Your abscess was drained by Interventional Radiology (Dr. Mead) on 06/29/17. Changes to your Medications: - Long acting Insulin added, administer 10 units once daily in the morning. - You will be taking two antibiotic medications for you infection from the abscess, Augmentin and Bactrim; use as directed. - Take your new medication of Lisiniopril (for blood pressure) once daily. - Take your new medication of Lipitor (for cholesterol) once daily. - Continue to take your other home medications as prescribed. Continue to eat a diabetic diet: low carb/sugar. A visiting nurse will assist you with your drain. Increase physical activity as tolerated. We ask you to make a log of your sugars when checking your levels. It is recommended to check your blood sugar levels three times a day. Bring this log with you to the doctors office. Drain instructions: flush with 5ml NS every 6hrs, maintain drain until only ~5ml /day, then return for removal. Supplies provided. Follow-ups: - schedule an appointment with your Primary Care Physician (at [facility] under [facility]. Braga) in 1 week. Please bring sugar log with you to clinic. - schedule an appointment with your surgeon Doctor (Dr. Sawant) in 2 weeks for a drain removal - schedule an appointment with your GI doctor for colonoscopy in a few months, after drain removal Please return to the hospital immediately if you experience persistent or increased derek-anal pain, fever, chills, abdominal pain, dizziness, lightheadedness, chest pain, difficulty breathing, or for any medical emergency. Referrals: Iván Braga MD [Primary Care Provider] - 1 Week Austyn Munoz MD [Staff Physician] - 2 Weeks Arturo Sawant MD [Staff Physician] - Disposition: HOME - Home Medications Comprehensive Discharge Medication List: Ambulatory Orders Polyethylene Glycol 3350 [Miralax 119 gm Btl -] 17 gm PO DAILY #1 bottle Bisacodyl [Dulcolax] 5 mg PO DAILY 06/28/17 Acetaminophen [Tylenol .Regular Strength -] 650 mg PO Q4H PRN tablet 07/02/17 Amox-Tr/K Cl [Augmentin - 875Mg Tablet] 1 tab PO BID #14 tablet 07/02/17 Atorvastatin Ca [Lipitor] 40 mg PO HS 30 Days #30 tablet 07/02/17 Blood Sugar Diagnostic [Test Strips] 1 each MC TID 30 Days #300 strip 07/02/17 Insulin (Levemir) [Levemir Flexpen -] 10 units SQ DAILY #1 pen 07/02/17 Lisinopril [Prinivil] 10 mg PO DAILY 30 Days #30 tablet 07/02/17 Miscellaneous Medical Supply [Glucometer Device] 1 each SQ ASDIR #1 kit Nicotine Polacrilex [Nicorelief -] 4 mg BUC Q2H PRN 7 Days #1 gum 07/02/17 Sulfamethoxazole/Trimethoprim [Bactrim Ds -] 1 tab PO BID 7 Days #14 tablet 03/11 Syringe and Needle,Insulin,1Ml [Insulin Syringe] 1 each MC DAILY 30 Days #30 disp.syrin 07/02/17 This patient is new to me today: No Emergency Visit: Yes ED Registration Date: 06/28/17 Care time: The patient presented to the Emergency Department on the above date and was hospitalized for further evaluation of their emergent condition. Critical Care patient: No - Discharge Referral Referred to [facility] No
== END 2017-07-02 13:43 | disposition home or self-care (01) | DRG 710 ==
LOC: JER 10:56 → JERBED 13:28 → J6S 15:45
PROVIDERS: ADMIT Internal Medicine; ATTEND Internal Medicine
PROC: 0D9P30Z Drainage of Rectum with Drainage Device, Percutaneous Approach (ICD-10-PCS; principal; 2017-06-29)
DX: A41.9 Sepsis, unspecified organism (principal); K61.1 Rectal abscess; I10 Essential (primary) hypertension; E78.5 Hyperlipidemia, unspecified; E11.65 Type 2 diabetes mellitus with hyperglycemia; N39.0 Urinary tract infection, site not specified; K59.00 Constipation, unspecified; E87.1 Hypo-osmolality and hyponatremia; F17.210 Nicotine dependence, cigarettes, uncomplicated; Z16.12 Extended spectrum beta lactamase (ESBL) resistance; D64.9 Anemia, unspecified
CPT/HCPCS: 36415; 49406; 71045-TC-FY; 76098-TC-FY; 77012-TC; 80053; 80061; 81003; 81015; 82009; 82272; 82550; 82803; 82962; 83036; 83605; 83721; 83735; 84100; 84484; 85025; 85027; 85610; 85730; 87040; 87070; 87075; 87086; 87186; 87205; 87899; 93005; 93010; 97116-GP; 97161-GP; 99284-25; C1729; C1769; J1644

== ENCOUNTER 2017-07-10 11:36 | Inpatient (IN) | payer OTHER ==
[2017-07-10 11:46] VITALS: BMI 20.1
--- NOTE | 2017-07-10 12:53 | PDOC ---
History of Present Illness - General History Source: Patient Exam Limitations: No Limitations - History of Present Illness Initial Comments: 07/10/17 13:12 The patient is a 52 year old male, with a significant past medical history of hypertension, hyperlipidemia, diabetes mellitus, who presents to the emergency department with, evaluation of abnormal lab values taken at Dr. Duong office on 07/07/17 (3 days ago). As per the patient he had a perirectal abscess drainage performed on 07/01/[address] Duong office for follow up blood work three days ago. The patient states he was notified today via telephone that his potassium level was 6 and was advised to come to the ED for evaluation. He denies any recent fevers, chills, headache or dizziness. He denies any recent nausea, vomit, diarrhea or constipation. He denies any recent chest pain or shortness of breath. He denies any recent dysuria, frequency, urgency or hematuria. Allergies: NKA Primary Care Physician: Dr. Braga <Forrest Rivera - Last Filed: 07/10/17 13:12> <Klaudia Thompson - Last Filed: 07/10/17 15:14> - General Chief Complaint: Revisit, Lab Variance Stated Complaint: EVALUATION (PCP SENT) Time Seen by Provider: 07/10/17 12:32 Past History <Forrest Rivera - Last Filed: 07/10/17 13:12> - Past Medical History COPD: No DVT: No Diabetes: Yes (NIDDM) - Suicide/Smoking/Psychosocial Hx Smoking History: Current every day smoker Have you smoked in the past 12 months: Yes Number of Cigarettes Smoked Daily: 5 Information on smoking cessation initiated: Yes 'Breaking Loose' booklet given: 06/28/17 Hx Alcohol Use: No Drug/Substance Use Hx: No Substance Use Type: None <Klaudia Thompson - Last Filed: 07/10/17 15:14> - Past Medical History Allergies/Adverse Reactions: Allergies Allergy/AdvReac Type Severity Reaction Status Date / Time No Known Allergies Allergy Verified 07/10/17 11:40 Home Medications: Ambulatory Orders Polyethylene Glycol 3350 [Miralax 119 gm Btl -] 17 gm PO DAILY #1 bottle Bisacodyl [Dulcolax] 5 mg PO DAILY 06/28/17 Acetaminophen [Tylenol .Regular Strength -] 650 mg PO Q4H PRN tablet 07/02/17 Amox-Tr/K Cl [Augmentin - 875Mg Tablet] 1 tab PO BID #14 tablet 07/02/17 Atorvastatin Ca [Lipitor] 40 mg PO HS 30 Days #30 tablet 07/02/17 Blood Sugar Diagnostic [Test Strips] 1 each MC TID 30 Days #300 strip 07/02/17 Insulin (Levemir) [Levemir Flexpen -] 10 units SQ DAILY #1 pen 07/02/17 Lisinopril [Prinivil] 10 mg PO DAILY 30 Days #30 tablet 07/02/17 Miscellaneous Medical Supply [Glucometer Device] 1 each SQ ASDIR #1 kit Nicotine Polacrilex [Nicorelief -] 4 mg BUC Q2H PRN 7 Days #1 gum 07/02/17 Sulfamethoxazole/Trimethoprim [Bactrim Ds -] 1 tab PO BID 7 Days #14 tablet 03/11 Syringe and Needle,Insulin,1Ml [Insulin Syringe] 1 each MC DAILY 30 Days #30 disp.syrin 07/02/17 Review of Systems - Review of Systems Comments:: 07/10/17 13:13 GENERAL/CONSTITUTIONAL: No fever or chills. No weakness. HEAD, EYES, EARS, NOSE AND THROAT: No change in vision. No ear pain or discharge. No sore throat. GASTROINTESTINAL: No nausea, vomiting, diarrhea or constipation. GENITOURINARY: No dysuria, frequency, or change in urination. CARDIOVASCULAR: No chest pain or shortness of breath. RESPIRATORY: No cough, wheezing, or hemoptysis. MUSCULOSKELETAL: No joint or muscle swelling or pain. No neck or back pain. SKIN: No rash NEUROLOGIC: No headache, vertigo, loss of consciousness, or change in strength/ sensation. ENDOCRINE: No increased thirst. No abnormal weight change. HEMATOLOGIC/LYMPHATIC: No anemia, easy bleeding, or history of blood clots. ALLERGIC/IMMUNOLOGIC: No hives or skin allergy. <Forrest Rivera - Last Filed: 07/10/17 13:12> *Physical Exam - Vital Signs Last Vital Signs Temp Pulse Resp BP Pulse Ox 97.5 F L 91 H 18 126/75 100 07/10/17 11:42 07/10/17 11:42 07/10/17 11:42 07/10/17 11:42 07/10/17 11:42 - Physical Exam Comments: 07/10/17 13:13 Constitutional: Awake, alert, oriented. No acute distress. Head: Normocephalic. Atraumatic Eyes: PERRL. EOMI. Conjunctivae are not pale. ENT: Mucous membranes are moist and intact. Posterior pharynx without exudates or erythema. Uvula midline. Neck: Supple. Full ROM. No lymphadenopathy. Cardiovascular: Regular rate. Regular rhythm. S1, S2 regular. Distal pulses are 2+ and symmetric. Pulmonary/Chest: No evidence of respiratory distress. Clear to auscultation bilaterally No wheezing, rales or rhonchi. Abdominal: Soft and non-distended. There is no tenderness. No rebound, guarding or rigidity. No organomegaly. No palpable masses. Good bowel sounds. Back: No CVA tenderness. Musculoskeletal: No edema. No cyanosis. No clubbing. Full range of motion in all extremities. Nocalf tenderness. Radial/pedal pulses are intact and 2+ bilaterally Skin: (+) LEONA drain from perirectal abscess on right buttocks area draining some tanish fluid. LEONA drain is clean, dry intact, with no surronding erythema. ( +) Slightly indurated but no fluctuance. Neurological: Alert and oriented to person, place, and time. Cranial nerves II -XII are grossly intact. Normal speech. Strength is grossly symmetric. No sensory deficits. Psychiatric: Good eye contact. Normal interaction, affect and behavior. <Forrest Rivera - Last Filed: 07/10/17 13:12> - Vital Signs Last Vital Signs Temp Pulse Resp BP Pulse Ox 97.5 F L 91 H 18 126/75 100 07/10/17 11:42 07/10/17 11:42 07/10/17 11:42 07/10/17 11:42 07/10/17 11:42 <Klaudia Thompson - Last Filed: 07/10/17 15:14> Heart Score/ECG Review - ECG Intrepretation Comment:: 07/10/17 13:46 a/p: sinus at 82, nl axis, nl interval, no acute st/t wave findings, peaked t waves in V3-V4 <Klaudia Thompson - Last Filed: 07/10/17 15:14> ED Treatment Course - LABORATORY CBC & Chemistry Diagram: 07/10/17 13:00 07/10/17 13:00 <Forrest Rivera - Last Filed: 07/10/17 13:12> - LABORATORY CBC & Chemistry Diagram: 07/10/17 13:00 07/10/17 13:00 <Klaudia Thompson - Last Filed: 07/10/17 15:14> Medical Decision Making - Medical Decision Making 07/10/17 13:47 a/p: 52yo male sent from the PMD clinic for eval of potassium of 6 on labs drawn 07/07. -pt denies all somatic complaints -leona drain with merrill fluid to L buttock for perirectal abscess - no surrounding erythema -will repeat labs and ekg -will monitor and reassess 07/10/17 15:12 pt with hyperkalemia and peaked t waves on lateral leads of EKG also with hyperglycemia will start calcium, iv insulin, iv hydraiton, kayexelate 07/10/17 15:[address] Swann who accepts the patient for admission for hyperkalemia with peaked t waves 07/10/17 15:14 pt states he did receive 20u levemir today. <Klaudia Thompson - Last Filed: 07/10/17 15:14> *DC/Admit/Observation/Transfer - Attestations Scribe Attestion: 07/10/17 13:17 Documentation prepared by Forrest Rivera, acting as medical doctor nuclear medicine for Klaudia Thompson DO. <Forrest Rivera - Last Filed: 07/10/17 13:12> - Discharge Dispostion Admit: Yes - Attestations Physician Attestion: 07/10/17 15:13 I, Dr. Kluadia Thompson DO, attest that this document has been prepared under my direction and personally reviewed by me in its entirety. I further attest, that it accurately reflects all work, treatment, procedures and medical decision -making performed by me. <Klaudia Thompson - Last Filed: 07/10/17 15:14> Diagnosis at time of Disposition: Hyperglycemia, Hyperkalemia - Discharge Dispostion Condition at time of disposition: Fair
[2017-07-10 13:11] LABS: BASO % 1.2 % (0-2.0); EOS % 2.5 % (0-4.5); HEMATOCRIT 37.3 % (35.4-49); HEMOGLOBIN 12.4 GM/dL (11.7-16.9); LYMPH % 12.8 % (8-40); MCH 27.4 pg (25.7-33.7); MCHC 33.1 g/dl (32.0-35.9); MEAN CELL VOLUME 82.6 fl (80-96); MEAN PLT VOLUME 7.8 fl (7.5-11.1); MONO % 5.3 % (3.8-10.2); NEUT % 78.2 % (42.8-82.8); PLATELET COUNT 402 K/MM3 (134-434); RBC 4.52 M/mm3 (4.00-5.60); RDW 15.2 % (11.9-15.9); WHITE BLOOD COUNT 7.1 K/mm3 (4.0-10.0)
[2017-07-10 13:54] LABS: ANION GAP 9 (8-16); BLOOD UREA NITROGEN 35 mg/dL (7-18); CALCIUM 9.3 mg/dL (8.5-10.1); CHLORIDE 97 mmol/L (98-107); CO2 27 mmol/L (21-32); CREATININE 1.3 mg/dL (0.7-1.3); MAGNESIUM 2.4 mg/dL (1.8-2.4); POTASSIUM 5.6 mmol/L (3.5-5.1); SGOT/AST 16 U/L (15-37); SGPT/ALT 45 U/L (12-78); SODIUM 133 mmol/L (136-145)
[2017-07-10 13:56] LABS: ALK PHOS 152 U/L (45-117); BILIRUBIN,TOTAL 0.3 mg/dL (0.2-1.0); TOT PROT 7.3 g/dl (6.4-8.2)
[2017-07-10 14:03] LABS: GLUCOSE,RANDOM 560 mg/dL (74-106)
[2017-07-10] MEDS ORDERED: SODIUM CHLORIDE 0.9% 1000 ML INFUS.BAG IV ONE ×2 (14:04)
[2017-07-10] MEDS ORDERED: CALCIUM GLUCONATE 10% - 1,000 MG/10 ML VIAL IVPUSH ONE (14:44)
[2017-07-10] MEDS ORDERED: SODIUM POLYSTYRENE SULFONATE 15 GM/60 ML BOTTLE PO ONE (14:45)
[2017-07-10] MEDS ORDERED: INSULIN REGULAR HUMAN 100 UNITS/ML *VIAL IVPUSH ONE (14:45)
[2017-07-10] MEDS ORDERED: SODIUM POLYSTYRENE SULFONATE 15 GM/60 ML BOTTLE ONE (15:08)
[2017-07-10] MEDS ORDERED: CALCIUM GLUCONATE 10% - 1,000 MG/10 ML VIAL ONE (15:08)
[2017-07-10] MEDS ORDERED: INSULIN REGULAR HUMAN 100 UNITS/ML *VIAL ONE (15:09)
[2017-07-10 17:53] LABS: URINE APPEARANCE CLEAR; URINE BILIRUBIN NEGATIVE (NEGATIVE); URINE BLOOD NEGATIVE (NEGATIVE); URINE COLOR STRAW; URINE GLUCOSE (UA) 3+ (NEGATIVE); URINE KETONE NEGATIVE (NEGATIVE); URINE LEUK ESTERASE NEGATIVE (NEGATIVE); URINE NITRITE NEGATIVE (NEGATIVE); URINE PROTEIN NEGATIVE (NEGATIVE); URINE UROBILINOGEN NEGATIVE mg/dL (0.2-1.0)
[2017-07-10] MEDS ORDERED: INSULIN DETEMIR 100 UNITS/ML MDV SQ ONE ×2 (18:30→19:33)
[2017-07-10] MEDS ORDERED: ERTAPENEM SODIUM 1 GM in SODIUM CHLORIDE 50 ML IVPB ONE (18:30)
--- NOTE | 2017-07-10 18:36 | PN ---
Teaching Attending Note Name of Resident: Ion Sutton ATTENDING PHYSICIAN STATEMENT I saw and evaluated the patient. I reviewed the resident's note and discussed the case with the resident. I agree with the resident's findings and plan as documented with exceptions mentioned below. SUBJECTIVE: 52 yom with pMHx of IDDM, derek-rectal abscess s/p IR guided drainage on 06/26/2017 , recently admitted with continued perirectal abscess, sent home on 07/02 on augmentin/bactrim (cultures with ESBL in urine and Non ESBL klebsiella in wound) , was sent from resident clinic given abnormal blood work. K 6, BG 500s and EKG with peaked T waves in anterolateral leads. Patient was noted with K 5.6, BG 500s and EKG with Peaked T waves in V2-V3 s/p ca/Insulin/IVF/kayexalate. patient denies any new complaints. States his levemir was increased to 20 units BID 2 days ago, also his perirectal symptoms continue to improve with no new fevers, chills or pain and now with decreasing drainage that is non bloody yellowish. Was seen by Dr. Mead recently and plan for drain removal on 07/19, has not followed up surgeon yet. OBJECTIVE: Vital Signs Period Temp Pulse Resp BP Sys/Hanson Pulse Ox Last 24 Hr 97.5 F-98.4 F 87-91 16-18 126-137/75-95 97-100 Intake & Output 07/07/17 07/08/17 07/09/17 07/10/17 23:59 23:59 23:59 23:59 Weight 125 lb GENERAL: Awake, alert, and fully oriented, in no acute distress. HEAD: Normal with no signs of trauma. EYES: Pupils equal, round and reactive to light, extraocular movements intact, sclera anicteric, conjunctiva clear. No lid lag. EARS, NOSE, THROAT: Ears normal, nares patent, oropharynx clear without exudates. Moist mucous membranes. NECK: Normal range of motion, supple no JVD LUNGS: Breath sounds equal, clear to auscultation bilaterally. No wheezes, and no crackles. No accessory muscle use. HEART: Regular rate and rhythm, normal S1 and S2 without murmur, rub or gallop. ABDOMEN: Soft, nontender, not distended, normoactive bowel sounds, no guarding, no rebound, no masses. MUSCULOSKELETAL: Normal range of motion at all joints. No bony deformities or tenderness. No CVA tenderness. UPPER EXTREMITIES: 2+ pulses, warm, well-perfused. No cyanosis. No clubbing. No peripheral edema. LOWER EXTREMITIES: 2+ pulses, warm, well-perfused. No calf tenderness. No peripheral edema. rectal: drain left perirectal area, no surrounding swelling/induration/warmth or tenderness on palpation, yellow liquid in the drain, no discharge or tenderness elicited on exam NEUROLOGICAL: Cranial nerves II-XII intact. Normal speech. Normal gait. PSYCHIATRIC: Cooperative. Good eye contact. Appropriate mood and affect. SKIN: Warm, dry, normal turgor, no rashes or lesions noted, normal capillary refill. Home Medication List Medication Instructions Recorded Confirmed Type Atorvastatin Ca [Lipitor] 40 mg PO HS 07/10/17 07/10/17 History Lisinopril [Prinivil] 10 mg PO DAILY 07/10/17 07/10/17 History Sulfamethoxazole/Trimethoprim 1 each PO DAILY 07/10/17 07/10/17 History [Sulfamethoxazole-Tmp Ds Tablet] Active Medications Generic Name Dose Route Start Last Admin Trade Name Freq PRN Reason Stop Dose Admin Ertapenem 1 gm/ Sodium 50 mls @ 50 mls/hr 07/10/17 18:30 Chloride IVPB 07/10/17 19:29 ONCE ONE Protocol Insulin Aspart 1 vial 07/10/17 22:00 Novolog Vial Sliding Scale - SQ ACHS [facility] Protocol Insulin Detemir 30 units 07/10/17 22:00 Levemir Vial SQ BID@0700,2200 [facility] Laboratory Results - last 24 hr 07/10/17 07/10/17 07/10/17 13:00 13:00 13:00 WBC 7.1 D RBC 4.52 D Hgb 12.4 D Hct 37.3 D MCV 82.6 MCH 27.4 MCHC 33.1 RDW 15.2 D Plt Count 402 MPV 7.8 Neutrophils % 78.2 Lymphocytes % 12.8 D Monocytes % 5.3 Eosinophils % 2.5 D Basophils % 1.2 Sodium 133 L Potassium 5.6 H D Chloride 97 L Carbon Dioxide 27 Anion Gap 9 BUN 35 H D Creatinine 1.3 D Creat Clearance w eGFR 57.97 Random Glucose 560 H* D Calcium 9.3 Magnesium 2.4 Total Bilirubin 0.3 D AST 16 D ALT 45 D Alkaline Phosphatase 152 H Creatine Kinase 31 L Troponin I < 0.02 Total Protein 7.3 Albumin 3.0 L D Urine Color Urine Appearance Urine pH Ur Specific [place] Urine Protein Urine Glucose (UA) Urine Ketones Urine Blood Urine Nitrite Urine Bilirubin Urine Urobilinogen Ur Leukocyte Esterase 07/10/17 17:34 WBC RBC Hgb Hct MCV MCH MCHC RDW Plt Count MPV Neutrophils % Lymphocytes % Monocytes % Eosinophils % Basophils % Sodium Potassium Chloride Carbon Dioxide Anion Gap BUN Creatinine Creat Clearance w eGFR Random Glucose Calcium Magnesium Total Bilirubin AST ALT Alkaline Phosphatase Creatine Kinase Troponin I Total Protein Albumin Urine Color Straw Urine Appearance Clear Urine pH 5.0 Ur Specific [place] 1.009 Urine Protein Negative Urine Glucose (UA) 3+ H Urine Ketones Negative Urine Blood Negative Urine Nitrite Negative Urine Bilirubin Negative Urine Urobilinogen Negative Ur Leukocyte Esterase Negative ASSESSMENT AND PLAN: 52 yom with IDDM, derek-rectal abscess s/p IR guided drain, to finish augmentin/ bactrim today, sent in with hyperkalemia with EKG changes and severe hyperglycemia. -Hyperkalemia with EKG changes -Severe hyperglycemia -Derek-rectal abscess s/p IR guided drainage, on augmentin/bactrim (last dose today) (prior cultures with ESBL in urine and non ESBL klebsiella in wound) -IDDM Plan: s/p ca/10 u insulin/IVF/kayexalate in ED. repeat BMP at 7 pm. telemetry, repeat EKG based on K levels. hold ACEi and bactrim. Low K diet. levemir 20 units today and increase to 30 units BID tomorrow. ISS AC and HS. BGM q2h for now and taper based on blood glucose readings. Aggressive hydration. Derek-rectal wound exam non concerning for new or worsening infection. ID input with Dr. garza, recommend ertapenem x 1 for now. Will follow up further recs in AM. Plan for drain removal on 07/19 per patient. No indication for inpatient surgery eval unless new concerns. DVTPPx with lovenox if inhouse > 48 hours Admit to telemetry Plan discussed with patient in detail, all questions answered. total admit time 55 min.
[2017-07-10] MEDS ORDERED: SODIUM CHLORIDE 1,000 ML IV SCH (18:45)
--- NOTE | 2017-07-10 18:50 | HP ---
CHIEF COMPLAINT: Sent by PCP for elevated potassium PCP: Dr. Braga HISTORY OF PRESENT ILLNESS: 52 y/o M w/PMH of HTN, HLD, DM presents to the ER after being sent in by PCP for hyperkalemia from labs drawn 3 days ago (K+ of 6) and EKG in clinic today showing peaked T-waves. Pt has no complaints. He denies CP, palpitations, fluttering in chest, n/v/f/c, SOB, TINAJERO, change in vision, abd pain, dysuria, LE swelling, muscle fatigue. He was taking levemir insulin 10 units bid until 2 days ago where his levemir was increased to 20 units bid for uncontrolled blood sugars. Pt was recently discharged from [facility] for perirectal abscess (discharged 07/02/17) with augmentin and bactrim (pt has 1 pill left of bactrim) and was started on lisinopril for htn. ER course was notable for: (1)Ca gluconate, insulin 10 units, kayexelate, ekg (2) (3) Recent Travel: denies PAST MEDICAL HISTORY: HTN, HLD, DM PAST SURGICAL HISTORY: perirectal FER drain placed on last admission Social History: Smoking: current smoker, smokes 3 cigarettes / day Alcohol: denies Drugs: denies Family History: father : colon ca Allergies No Known Allergies Allergy (Verified 07/10/17 11:40) HOME MEDICATIONS: Home Medications Medication Instructions Recorded Atorvastatin Ca [Lipitor] 40 mg PO HS 07/10/17 Lisinopril [Prinivil] 10 mg PO DAILY 07/10/17 Sulfamethoxazole/Trimethoprim 1 each PO DAILY 07/10/17 [Sulfamethoxazole-Tmp Ds Tablet] REVIEW OF SYSTEMS CONSTITUTIONAL: Absent: fever, chills HEENT: Absent: visual changes CARDIOVASCULAR: Absent: chest pain, palpitations, irregular heart rate, lightheadedness, peripheral edema RESPIRATORY: Absent: cough, shortness of breath, dyspnea with exertion GASTROINTESTINAL: Absent: abdominal pain, nausea, vomiting, diarrhea, constipation GENITOURINARY: Absent: dysuria MUSCULOSKELETAL: Absent: myalgia NEUROLOGIC: Absent: headache PHYSICAL EXAMINATION Vital Signs - 24 hr 07/10/17 07/10/17 11:42 17:23 Temperature 97.5 F L 98.4 F Pulse Rate 91 H Pulse Rate [ 87 Apical] Respiratory 18 16 Rate Blood Pressure 126/75 Blood Pressure 137/95 [Right Arm] O2 Sat by Pulse 100 97 Oximetry (%) GENERAL: Awake, alert, and fully oriented, in no acute distress. HEAD: Normal with no signs of trauma. EYES: extraocular movements intact, sclera anicteric, conjunctiva clear. EARS, NOSE, THROAT: Ears normal, nares patent, Moist mucous membranes. LUNGS: Diminished breath sounds. HEART: Regular rate and rhythm, normal S1 and S2 without murmur ABDOMEN: Soft, nontender, not distended, normoactive bowel sounds. FER drain in L buttock with merrill/cream colored minimal drainage. Drain entry point is clean, dry, intact, w/no signs of infection. No tenderness to palpation in the L buttocks. UPPER EXTREMITIES: No peripheral edema. LOWER EXTREMITIES: warm, well-perfused. No peripheral edema. NEUROLOGICAL: Normal speech. Gait not observed. PSYCHIATRIC: Cooperative. Good eye contact. Appropriate mood and affect. SKIN: Warm, dry. Laboratory Results - last 24 hr 07/10/17 07/10/17 07/10/17 13:00 13:00 13:00 WBC 7.1 D RBC 4.52 D Hgb 12.4 D Hct 37.3 D MCV 82.6 MCH 27.4 MCHC 33.1 RDW 15.2 D Plt Count 402 MPV 7.8 Neutrophils % 78.2 Lymphocytes % 12.8 D Monocytes % 5.3 Eosinophils % 2.5 D Basophils % 1.2 Sodium 133 L Potassium 5.6 H D Chloride 97 L Carbon Dioxide 27 Anion Gap 9 BUN 35 H D Creatinine 1.3 D Creat Clearance w eGFR 57.97 Random Glucose 560 H* D Calcium 9.3 Magnesium 2.4 Total Bilirubin 0.3 D AST 16 D ALT 45 D Alkaline Phosphatase 152 H Creatine Kinase 31 L Troponin I < 0.02 Total Protein 7.3 Albumin 3.0 L D EKG: Peaked T waves in lateral leads Active Medications Ertapenem 1 gm/ Sodium (Chloride) 50 mls @ 50 mls/hr IVPB ONCE ONE PRN Reason: Protocol Stop: 07/10/17 19:29 Insulin Aspart (Novolog Vial Sliding Scale -) 1 vial SQ ACHS [facility] PRN Reason: Protocol Insulin Detemir (Levemir Vial) 30 units SQ BID@0700,2200 [facility] ASSESSMENT/PLAN: 52 y/o M w/PMH of HTN, HLD, DM presents to the ER after being sent in by PCP for hyperkalemia. -Hyperkalemia -Recheck BMP, pt given Ca Gluconate, Kayexelate, and Regular insulin in ER -Recheck EKG -Will hold lisinopril -Will give 20 units of levemir for now -Uncontrolled DM -WIll give 20 units levemir now -INcrease to levemir 30 units bid (from 20 units bid) -Monitor BGMs q2h for next 4 hours then q4h -ISS ACHS -Perirectal abscess -Currently does not look infected -But case discussed with Dr. Panda and with elevated blood glucose despite increase in levemir will give ertapenem 1 dose for now. -ID consulted -HTN -will hold lisinopril, currently normotensive -reassess anti-hypertensive after hyperkalemia resolves -DVT ppx -Heparin sq 5000 units q8h -FEN -NS @ 125 ml/hr -Hyperkalemia as noted above; Pseudohyponatremia - corrected for glucose is 140 -Diabetic, low potassium diet -Dispo: Admit to tele Visit type - Emergency Visit Emergency Visit: Yes ED Registration Date: 07/10/17 Care time: The patient presented to the Emergency Department on the above date and was hospitalized for further evaluation of their emergent condition. - New Patient This patient is new to me today: Yes Date on this admission: 07/10/17 - Critical Care Critical Care patient: No Hospitalist Screening - Colonoscopy Questionnaire Colonoscopy Questionnaire: Colonoscopy Questionnaire - Patient: 50 - 75 years old and never had a screening colonoscopy: Unknown History of colon or rectal polyps, or CA: Unknown History of IBD, Crohn's disease or UC: Unknown History of abdominal radiation therapy as a child: Unknown - Relative: 1 with colon or rectal CA, or polyps at age 60 or younger: Unknown Colon or rectal CA diagnosed at age 45 or younger: Unknown Multiple relatives with colon or rectal CA: Unknown - Outcome: Screening Result: Negative Screen
[2017-07-10] MEDS ORDERED: ERTAPENEM SODIUM 1 GM VIAL ONE (19:32)
[2017-07-10 20:48] LABS: ANION GAP 4 (8-16); BLOOD UREA NITROGEN 27 mg/dL (7-18); CHLORIDE 106 mmol/L (98-107); CO2 25 mmol/L (21-32); POTASSIUM 4.9 mmol/L (3.5-5.1); SODIUM 135 mmol/L (136-145)
[2017-07-10 21:09] LABS: GLUCOSE,RANDOM 425 mg/dL (74-106)
[2017-07-10] MEDS ORDERED: INSULIN SLIDING SCALE (NOVOLOG) 1 VIAL SQ SCH (22:00)
[2017-07-10] MEDS ORDERED: INSULIN (NOVOLOG) ASPART 100 UNITS/ML 10ML VIAL ONE (22:27)
[2017-07-10] MEDS: INSULIN SLIDING SCALE (NOVOLOG) 1 VIAL SQ SCH (22:49)
[2017-07-10] MEDS: HEPARIN NA (PORCINE) 5,000 UNITS/ML 1ML VIAL SQ SCH (22:49)
[2017-07-10] MEDS: INSULIN DETEMIR 100 UNITS/ML MDV SQ SCH (22:49)
[2017-07-11] MEDS: INSULIN SLIDING SCALE (NOVOLOG) 1 VIAL SQ SCH ×2 (06:06→12:15)
[2017-07-11] MEDS: INSULIN DETEMIR 100 UNITS/ML MDV SQ SCH (06:12)
[2017-07-11] MEDS: HEPARIN NA (PORCINE) 5,000 UNITS/ML 1ML VIAL SQ SCH (06:12)
[2017-07-11 07:15] VITALS: BP 145/87; PULSE 74; TEMP 97.4
[2017-07-11 08:44] LABS: EOS % 2.8 % (0-4.5); HEMATOCRIT 35.8 % (35.4-49); HEMOGLOBIN 11.8 GM/dL (11.7-16.9); LYMPH % 26.8 % (8-40); MCH 27.3 pg (25.7-33.7); MCHC 33.1 g/dl (32.0-35.9); MEAN CELL VOLUME 82.7 fl (80-96); MEAN PLT VOLUME 7.7 fl (7.5-11.1); MONO % 6.7 % (3.8-10.2); NEUT % 62.7 % (42.8-82.8); PLATELET COUNT 461 K/MM3 (134-434); RBC 4.33 M/mm3 (4.00-5.60); RDW 14.8 % (11.9-15.9); WHITE BLOOD COUNT 9.7 K/mm3 (4.0-10.0)
[2017-07-11 09:10] LABS: ALBUMIN 2.8 g/dl (3.4-5.0); ANION GAP 10 (8-16); BILIRUBIN,TOTAL 0.2 mg/dL (0.2-1.0); BLOOD UREA NITROGEN 24 mg/dL (7-18); CHLORIDE 107 mmol/L (98-107); CO2 24 mmol/L (21-32); CREATININE 0.8 mg/dL (0.7-1.3); GLUCOSE,RANDOM 59 mg/dL (74-106); POTASSIUM 3.9 mmol/L (3.5-5.1); SGOT/AST 11 U/L (15-37); SGPT/ALT 32 U/L (12-78); SODIUM 141 mmol/L (136-145); TOT PROT 6.5 g/dl (6.4-8.2)
[2017-07-11 09:11] LABS: ALK PHOS 120 U/L (45-117)
--- NOTE | 2017-07-11 13:25 | CON.ID ---
Consult Consult Specialty:: infectious disease Referred by:: hospitalist service Reason for Consultation:: need for antibiotics - History of Present Illness Chief Complaint: hyperkalemia History of Present Illness: 52 tear oldman admitted 06/28 to 07/02 with perirectal abscess s/p IR drainage-- culture of urine-culture of urine kleb esbl, fluid kleb non esbl- no fevers he received 48 hours of ertapenem and was discharged on augmentin and bactrim. as well he had been recently diagnosed with diabetes and was intructed to start taking insulin he was seen as an outpt for adjustment of his sugars and was started on lisinopril as well he was seen in f/u and referred to ed for hyperkalemia he was treated for 10 days as an outpt with bactrim and augmentin which he has completed he is stilll flushing the drain daily and has a scant amount of drainage back in the bulb no fever feels well received ertapenem one dose yesterday - History Source History Provided By: Patient - Past Medical History Cardio/Vascular: Yes: HTN, Hyperlipdemia Endocrine: Yes: Diabetes Mellitus Additional Medical History: perirectal abscess 06/2017 - Alcohol/Substance Use Hx Alcohol Use: No - Smoking History Smoking history: Current every day smoker Have you smoked in the past 12 months: Yes Aproximately how many cigarettes per day: 5 - Social History Usual Living Arrangement: With Spouse ADL: Independent History of Recent Travel: No Home Medications - Allergies Allergies/Adverse Reactions: Allergies Allergy/AdvReac Type Severity Reaction Status Date / Time No Known Allergies Allergy Verified 07/10/17 11:40 - Home Medications Home Medications: Ambulatory Orders Atorvastatin Ca [Lipitor] 40 mg PO HS 07/10/17 Lisinopril [Prinivil] 10 mg PO DAILY 07/10/17 Sulfamethoxazole/Trimethoprim [Sulfamethoxazole-Tmp Ds Tablet] 1 each PO DAILY 07/10/17 Family Disease History - Family Disease History Family History: Unremarkable Review of Systems - Review of Systems Constitutional: reports: No Symptoms Eyes: reports: No Symptoms HENT: reports: No Symptoms Neck: reports: No Symptoms Cardiovascular: reports: No Symptoms Respiratory: reports: No Symptoms Gastrointestinal: reports: No Symptoms Genitourinary: reports: No Symptoms Physical Exam Vital Signs: Vital Signs Temperature 97.4 F L 07/11/17 06:00 Pulse Rate 74 07/11/17 06:00 Respiratory Rate 20 07/11/17 09:00 Blood Pressure 145/87 07/11/17 06:00 O2 Sat by Pulse Oximetry (%) 98 07/11/17 09:00 Constitutional: Yes: Well Nourished, No Distress, Calm, Thin Eyes: Yes: Conjunctiva Clear HENT: Yes: Atraumatic, Normocephalic. No: Thrush Neck: Yes: Supple, Trachea Midline Cardiovascular: Yes: Regular Rate and Rhythm Respiratory: Yes: Regular, CTA Bilaterally Gastrointestinal: Yes: Normal Bowel Sounds, Soft ...Rectal Exam: Yes: Deferred Extremities: Yes: WNL Edema: No Wound/Incision: Yes: Other (leona drain with scant cloudy fluid, no erythema or pain) Neurological: Yes: Alert, Oriented Labs: CBC, BMP 07/11/17 08:11 07/11/17 08:11 Problem List - Problems (1) Perirectal abscess Code(s): K61.1 - RECTAL ABSCESS (2) Hyperkalemia Code(s): E87.5 - HYPERKALEMIA (3) Diabetes Code(s): E11.9 - TYPE 2 DIABETES MELLITUS WITHOUT COMPLICATIONS Qualifiers: Diabetes mellitus type: other specified (including ELYSE) Diabetes mellitus oil heaterman insulin use: without oil heaterman use Diabetes mellitus complication status: with hyperglycemia Qualified Code(s): E13.65 - Other specified diabetes mellitus with hyperglycemia Assessment/Plan hyperkalemia resolved s/p 12 days antibiotics for perirectal managemnt no need for further antibiotics he is afebrile, normal WBC further management per GI and Surgery
--- NOTE | 2017-07-11 17:05 | PN ---
Teaching Attending Note Name of Resident: Roxanne Lomeli ATTENDING PHYSICIAN STATEMENT I saw and evaluated the patient. I reviewed the resident's note and discussed the case with the resident. I agree with the resident's findings and plan as documented. SUBJECTIVE:was sent to ER due to abnormal labs. states he is compliant with medications and has 1 dose left of abx. no pain or swelling on buttocks. denies Cp, SOB, fever, chills, N/V/C/D OBJECTIVE: Last Vital Signs Temp Pulse Resp BP Pulse Ox 97.4 F L 74 20 145/87 98 07/11/17 06:00 07/11/17 06:00 07/11/17 09:00 07/11/17 06:00 07/11/17 09:00 General NAD REctal- +FER drain with no surrounding erythema or pus. FER drain empty ASSESSMENT AND PLAN: 52yo M with PMH DM, HTN and recent perirectal abscess s/p I&D and FER drain sent to ER with lab abnormalities 1. Hyperglycemia- was recently increased to levemir 20 untis BID. received 50 units yesterday and now sugars are 77. will d/c on 30 units BID. would not send home on novolog as possibility of pt complying is low. encourage pt to continue to check sugars and bring to PMD for further insulin adjustment 2. Hyperkalemia- s/p kayexylate. now resolved. was on acei. will attempt to switch to ARB although this can also lead to hyperkalemia will attempt this as there is mortality benefit from ACEI/ARB. if persists will need alternative drug 3. derek-rectal abscess- s/p FER drain. plan to remove on 07/19. has 1 day left of abx. does not appear infected. can complete po abx. ID consulted 4. HTN- will switch to losartan 25mg. likely require uptitration to optimize control 5. pt counseled about medication compliance and follow up. verablized understanding on medication changes. notified by RN that pt choose to sign out AMA while awaiting paperwork to be prepared. will send scripts to pharmacy. d/c plan to be mailed to house. should have repeat labs in 1 week
--- NOTE | 2017-07-11 22:39 | DS ---
Physical Exam: SUBJECTIVE: Patient seen and examined OBJECTIVE: Vital Signs Period Temp Pulse Resp BP Sys/Hanson Pulse Ox Last 24 Hr 97.4 F-98.1 F 74-84 20-20 145-146/84-87 98 PHYSICAL EXAM GENERAL: The patient is awake, alert, and fully oriented, in no acute distress. HEAD: Normal with no signs of trauma. EYES: PERRL, extraocular movements intact, sclera anicteric, conjunctiva clear. ENT: Ears normal, nares patent, oropharynx clear without exudates, moist mucous membranes. NECK: Trachea midline, full range of motion, supple. LUNGS: Breath sounds equal, clear to auscultation bilaterally, no wheezes, no crackles, no accessory muscle use. HEART: Regular rate and rhythm, S1, S2 without murmur, rub or gallop. ABDOMEN: Soft, nontender, nondistended, normoactive bowel sounds, no guarding, no rebound, no hepatosplenomegaly, no masses. EXTREMITIES: 2+ pulses, warm, well-perfused, no edema. NEUROLOGICAL: Cranial nerves II through XII grossly intact. Normal speech, gait not observed. PSYCH: Normal mood, normal affect. SKIN: Warm, dry, normal turgor, no rashes or lesions noted. LABS Laboratory Results - last 24 hr 07/10/17 07/11/17 07/11/17 22:19 00:06 06:06 WBC RBC Hgb Hct MCV MCH MCHC RDW Plt Count MPV Neutrophils % Lymphocytes % Monocytes % Eosinophils % Basophils % Sodium Potassium Chloride Carbon Dioxide Anion Gap BUN Creatinine Creat Clearance w eGFR POC Glucometer 419 269 144 Random Glucose Hemoglobin A1c % Calcium Total Bilirubin AST ALT Alkaline Phosphatase Total Protein Albumin 07/11/17 07/11/17 07/11/17 08:11 08:11 08:11 WBC 9.7 D RBC 4.33 Hgb 11.8 Hct 35.8 MCV 82.7 MCH 27.3 MCHC 33.1 RDW 14.8 Plt Count 461 H MPV 7.7 Neutrophils % 62.7 Lymphocytes % 26.8 D Monocytes % 6.7 Eosinophils % 2.8 Basophils % 1.0 Sodium 141 Potassium 3.9 D Chloride 107 Carbon Dioxide 24 Anion Gap 10 BUN 24 H Creatinine 0.8 Creat Clearance w eGFR > 60 POC Glucometer Random Glucose 59 L D Hemoglobin A1c % 13.1 H D Calcium 9.0 Total Bilirubin 0.2 D AST 11 L D ALT 32 D Alkaline Phosphatase 120 H D Total Protein 6.5 Albumin 2.8 L 07/11/17 12:09 WBC RBC Hgb Hct MCV MCH MCHC RDW Plt Count MPV Neutrophils % Lymphocytes % Monocytes % Eosinophils % Basophils % Sodium Potassium Chloride Carbon Dioxide Anion Gap BUN Creatinine Creat Clearance w eGFR POC Glucometer 229 Random Glucose Hemoglobin A1c % Calcium Total Bilirubin AST ALT Alkaline Phosphatase Total Protein Albumin HOSPITAL COURSE: Date of Admission:07/10/17 Date of Discharge: 07/11/17 Discharge Summary Reason For Visit: HYPERKALEMIA Condition: Stable - Instructions Diet, Activity, Other Instructions: You were admitted to the hospital for elevated Potassium that was affected your heart and for elevated blood sugar levels. You were given medication to decrease your potassium levels. Recommendations: -Follow a low carbohydrate and low sugar diet. -You may resume your regular daily activities. -A visiting nurse will assist you with your drain. Increase physical activity as tolerated. We ask you to make a log of your sugars when checking your levels. You should check your blood sugar levels three times a day and the values down. Bring this log with you to the doctors office. -Drain instructions: continue to flush with 5cc of normal saline every 6 hours, maintain drain until only ~5cc per day. Supplies provided. Medications: -Continue taking the rest of you antibiotics as directed. -Take levemir 30U twice per day (12 hours apart) -Stop taking lisinopril. -Take losartan 25mg one time per day. -continue taking Lipitor 40mg one tablet at bedtime. Follow-ups: - schedule an appointment with your Primary Care Physician (at [facility] under Dr. Braga) in 1 week. Please bring the sugar log with you to clinic. -follow-up with your surgeon, Dr. Sawant, in 1 week drain removal -Schedule an appointment with your stomach doctor (Dr. Munoz) for colonoscopy in a the next few months, after your drain removal. Please return to the Emergency Department if you experience persistent or increased derek-anal pain, fever, chills, abdominal pain, dizziness, lightheadedness, chest pain, difficulty breathing, or for any medical emergency. Disposition: AGAINST MEDICAL ADVICE - Home Medications Comprehensive Discharge Medication List: Ambulatory Orders Atorvastatin Ca [Lipitor] 40 mg PO HS 07/10/17 Sulfamethoxazole/Trimethoprim [Sulfamethoxazole-Tmp Ds Tablet] 1 each PO DAILY 07/10/17 Insulin Detemir [Levemir Flextouch] 30 unit SQ BID #1 insuln.pen 07/11/17 Losartan Potassium 25 mg PO DAILY #30 tablet 07/11/17
--- NOTE | 2017-07-12 01:07 | EKG ---
Test Reason : Blood Pressure : / mmHG Vent. Rate : 082 BPM Atrial Rate : 082 BPM P-R Int : 180 ms QRS Dur : 120 ms QT Int : 368 ms P-R-T Axes : 070 067 057 degrees QTc Int : 429 ms NORMAL SINUS RHYTHM POSSIBLE LEFT ATRIAL ENLARGEMENT INCOMPLETE LEFT BUNDLE BRANCH BLOCK BORDERLINE ECG WHEN COMPARED WITH ECG OF 28-JUN-2017 11:34, FUSION COMPLEXES ARE NO LONGER PRESENT PREMATURE VENTRICULAR COMPLEXES ARE NO LONGER PRESENT Confirmed by CARON LECHUGA MD ([id number]) on 07/12/2017 1:06:32 AM Referred By: Confirmed By:CARON LECHUGA MD
== END 2017-07-11 14:19 | disposition left against medical advice (07) | DRG 425 ==
LOC: JER 11:36 → JERBED 15:14 → J4S 22:15
PROVIDERS: ADMIT Hospitalist; ATTEND Internal Medicine
DX: E87.5 Hyperkalemia (principal); K61.1 Rectal abscess; I10 Essential (primary) hypertension; E78.5 Hyperlipidemia, unspecified; F17.210 Nicotine dependence, cigarettes, uncomplicated; Z79.4 Long term (current) use of insulin; E13.65 Other specified diabetes mellitus with hyperglycemia
CPT/HCPCS: 36415; 80048; 80053; 81003; 82550; 82962; 83036; 83735; 84484; 85025; 93005; 93010; 99285-25; J7030

== ENCOUNTER 2017-11-10 09:26 | Observation (INO) | payer OTHER ==
[2017-11-10 09:42] VITALS: BMI 21.7
--- NOTE | 2017-11-10 09:51 | PDOC ---
Attending Attestation - Resident Resident Name: ReguloRandy - ED Attending Attestation I have performed the following: I have examined & evaluated the patient, The case was reviewed & discussed with the resident, I agree w/resident's findings & plan, Exceptions are as noted - HPI HPI: 11/10/17 10:36 52 year old male with past medical history of former smoker, HTN, DM, HLD presents with left sided weakness since 8:30 am. The patient woke up in his usual state of health. Was eating breakfast and took his insulin injection. Went to stand up and noted that his left face, left arm, and left leg were weak. noted that he was slurring his speech. Denies chest pain or SOB. Came to the ER. Pt's FS here in ER 314. - Physicial Exam PE: 11/10/17 10:39 GENERAL: Awake, alert, and fully oriented, in no acute distress HEAD: No signs of trauma EYES: EOMI, sclera anicteric, conjunctiva clear ENT: Auricles normal inspection, hearing grossly normal, nares patent,Moist mucosa NECK: Normal ROM, supple LUNGS: Breath sounds equal, clear to auscultation bilaterally. No wheezes, and no crackles HEART: Regular rate and rhythm, normal S1 and S2, no murmurs, rubs or gallops ABDOMEN: Soft, nontender,. No guarding, no rebound. No masses EXTREMITIES: Normal range of motion, no edema. No clubbing or cyanosis. No cords, erythema, or tenderness NEUROLOGICAL: Cranial nerves II through XII intact except mild left sided facial droop and mild dysarthria. no drift, sensation intact throughout, 5/5 strength upper and lower extremities, mild gait imbalance when ambulating. subjective weakness on LUE, LLE. SKIN: Warm, Dry, normal turgor, no rashes or lesions noted. - Medical Decision Making 11/10/17 10:42 Vital Signs Temp Pulse Resp BP Pulse Ox 98.1 F 91 H 16 115/77 100 11/10/17 09:30 11/10/17 09:30 11/10/17 09:30 11/10/17 09:30 11/10/17 09:30 I suspect that the patient likely had an ischemic stroke, with left sided features. CT head demonstrates no acute findings. NIHSS 2. Pt with mild stroke. Case discussed with Dr. Jeffery. Given the low severity of NIHSS, risks outweigh benefits for TPA. Will defer TPA. Will admit for MRI brain/MRA head and neck. Aspirin once passes dysphagia screening. <Saji Lawler - Last Filed: 11/10/17 10:33> - Medical Decision Making 11/10/17 10:18 On-call neurologist is Dr. Sancho Jeffery at this time. Case discussed with Dr. Jeffery at 10:00 am, and then 10:15 am. <Daniela Katz - Last Filed: 11/10/17 13:32> Heart Score/ECG Review #1 ECG reviewed & interpreted by me at: 09:45 11/10/17 10:35 NSR 81, no std/tosha, normal axis, normal interviews, QTC 436 msec <Saji Lawler - Last Filed: 11/10/17 10:33> NIH Stroke Scale - Last Known Well Date/Time & Onset Date Last Known Well: 11/10/17 Time Last Known Well: 08:30 - Initial Evaluation Level of consciousness: Alert Ask patient the month and their age: Answers both correctly Ask patient to open & close eyes; make fist and let go: Obeys both correctly Best gaze (horizontal eye movement): Normal Visual field testing: No visual field loss Facial paresis (Show teeth/raise eyebrows/close eyes tight): Minor paralysis ( flattened nasolabial fold, asymmetry on smiling) Motor Function: Left Arm: Normal Motor Function: Right Arm: Normal (extends arm 90 (or 45) degrees for 10 seconds without drift Motor Function: Left Leg: Normal (extends leg 30 degrees for 5 seconds without drift) Motor Function: Right Leg: Normal (extends leg 30 degrees for 5 seconds without drift) Limb Ataxia: No ataxia Sensory(Use pinprick test arms,legs,trunk,face/side to side): Normal Best language (Describe picture, name items, read sentences): No Aphasia Dysarthria (read several words): Mild to moderate slurring of words Extinction and Inattention: No abnormality - Total Score NIH Stroke Scale Score: 2 <Saji Lawler - Last Filed: 11/10/17 10:33> ED Treatment Course - LABORATORY CBC & Chemistry Diagram: 11/10/17 10:10 11/10/17 10:10 - ADDITIONAL ORDERS Additional order review: Laboratory Results 11/10/17 11/10/17 11/10/17 10:10 10:10 10:10 PT with INR 13.80 H INR 1.22 H Sodium 137 Potassium 4.5 Chloride 102 Carbon Dioxide 30 D Anion Gap 5 L BUN 27 H Creatinine 1.5 H Creat Clearance w eGFR 49.15 POC Glucometer Random Glucose 330 H* D Calcium 9.3 Total Bilirubin 0.3 AST 9 L ALT 15 D Alkaline Phosphatase 103 Creatine Kinase 53 Troponin I < 0.02 Total Protein 6.5 Albumin 3.2 L Triglycerides 131 Cholesterol 183 Total LDL Cholesterol 96 HDL Cholesterol 70 H Blood Type A POSITIVE Antibody Screen Negative 11/10/17 10:08 PT with INR INR Sodium Potassium Chloride Carbon Dioxide Anion Gap BUN Creatinine Creat Clearance w eGFR POC Glucometer [phone] Random Glucose Calcium Total Bilirubin AST ALT Alkaline Phosphatase Creatine Kinase Troponin I Total Protein Albumin Triglycerides Cholesterol Total LDL Cholesterol HDL Cholesterol Blood Type Antibody Screen 11/10/17 11/10/17 10:10 10:08 RBC 4.71 MCV 82.8 MCHC 32.9 RDW 13.1 D MPV 8.8 D Neutrophils % 58.8 Lymphocytes % 20.2 D Monocytes % 4.9 Eosinophils % 14.9 H D Basophils % 1.2 POC Glucometer [phone] - RADIOLOGY Radiograph Interpretation: 11/10/17 13:30 Chest X-Ray was reviewed by Dr. Lawler and over-read by Radiology. Impression: No acute chest pathology. No significant change. Head CT was reviewed by Dr. Lawler and over-read by Radiology. Impression: No evidence of acute intracranial hemorrhage, edema, midline shift, mass effect, or skull fracture. There is no CT evidence of acute territorial infarction. Documentation prepared by Daniela Katz, acting as medical review specialist for Saji Lawler MD. - Medications Given in the ED: ED Medications Discontinued Medications Generic Name Dose Route Start Last Admin Trade Name Freq PRN Reason Stop Dose Admin Aspirin 325 mg 11/10/17 10:39 11/10/17 10:50 Ecotrin - PO 11/10/17 10:40 325 mg ONCE ONE Administration Vancomycin HCl 1,500 mg/ 250 mls @ 250 mls/hr 11/10/17 10:19 11/10/17 10:58 Dextrose IVPB 11/10/17 11:18 Not Given ONCE ONE Protocol <Daniela Katz - Last Filed: 11/10/17 13:32>
[2017-11-10] MEDS ORDERED: SODIUM CHLORIDE 1,000 ML IV SCH (10:00)
[2017-11-10 10:16] LABS: BASO % 1.2 % (0-2.0); EOS % 14.9 % (0-4.5); HEMOGLOBIN 12.8 GM/dL (11.7-16.9); LYMPH % 20.2 % (8-40); MCH 27.2 pg (25.7-33.7); MCHC 32.9 g/dl (32.0-35.9); MEAN CELL VOLUME 82.8 fl (80-96); MEAN PLT VOLUME 8.8 fl (7.5-11.1); MONO % 4.9 % (3.8-10.2); NEUT % 58.8 % (42.8-82.8); PLATELET COUNT 250 K/MM3 (134-434); RBC 4.71 M/mm3 (4.00-5.60); RDW 13.1 % (11.9-15.9); WHITE BLOOD COUNT 6.3 K/mm3 (4.0-10.0)
[2017-11-10] MEDS ORDERED: VANCOMYCIN 1,500 MG in DEXTROSE 5%-WATER - 250 ML IVPB ONE (10:19)
--- NOTE | 2017-11-10 10:26 | PDOC ---
History of Present Illness - General Chief Complaint: Weakness Stated Complaint: LEFT SIDE NUMBNESS Time Seen by Provider: 11/10/17 09:49 - History of Present Illness Initial Comments: 11/10/17 10:17 52 y/o M w/PMH of HTN, HLD, IDDM who p/w L sided weakness/numbness. Patient reports taking his insulin and then standing up from chair at 0830 AM today with left sided LE and UE weakness. Patient with h/o poor ambulation, but with increased difficulty with ambulation this AM. + slurred speech at baseline. Patient states that he was seen at [facility] 1 year ago for similar symptoms of weakness,which was worked up as negative stroke. Denies h/o carotid dopplers. Patient denies N/V, F,C, CP, SOB, urinary complaints, abdominal pain, diarrhea, constipation, lightheadedness, LOC. PMHx: as noted above. Denies h/o CVA/TIA. Denies h/o CAD/W[place], stent placement, CABG, abnml stress testing. ROS: as noted SHx: tobacco 1 PPD x 20+ years. Etoh cessation x 3 years. Denies IVDA. Allergies: NKDA tPA Exclusion Checklist 0-3hr - Time Elapsed Date last known well: 11/10/17 Time last known well: 08:30 Elaspsed time: Day(s) and 2 Hour(s) and 57 Minutes - Thrombolytic Therapy Candidate Is the patient eligible for Thrombolytic Therapy?: No - Exclusion Criteria 0-3hr SBP greater than 185 or DBP greater than 110mmHg despite tx: No Recent IC/spinal surgery,head trauma or stroke w/in last 3mo: No Hx of previous IC hemorrhage, IC neoplasm, AVM or aneurysm: No Active internal bleeding: No Blding diathesis(low plt ct, inc PTT,INR>1.7 or use of NOAC): No Symptoms suggest subarachnoid hemorrhage: No CT demonstrates multilobar infarct(>1/3 cerebral hemiphere): No Arterial puncture at noncompressible site in previous 7 days: No Blood glucose concentration less than 50mg/dL (2.7mmol/L): No - Relative Exclusion Criteria 0-3h Life expectancy <1yr/severe co-morbid illness/[employer] on admit: No : No Patient/family refused: No Rapid improvement: No Stroke severity too mild: No Recent acute WI (w/in previous 3 months): No Seizure at onset with postictal residual neuro impairments: No Major surgery or serious trauma w/in previous 14 days: No Recent GI or hemorrhage (w/in previous 21 days): No NIH Stroke Scale - Last Known Well Date/Time & Onset Date Last Known Well: 11/10/17 Time Last Known Well: 08:30 - Initial Evaluation Level of consciousness: Alert Ask patient the month and their age: Answers both correctly Ask patient to open & close eyes; make fist and let go: Obeys both correctly Best gaze (horizontal eye movement): Normal Visual field testing: No visual field loss Facial paresis (Show teeth/raise eyebrows/close eyes tight): Minor paralysis ( flattened nasolabial fold, asymmetry on smiling) Motor Function: Left Arm: Normal Motor Function: Right Arm: Normal (extends arm 90 (or 45) degrees for 10 seconds without drift Motor Function: Left Leg: Normal (extends leg 30 degrees for 5 seconds without drift) Motor Function: Right Leg: Normal (extends leg 30 degrees for 5 seconds without drift) Limb Ataxia: No ataxia Sensory(Use pinprick test arms,legs,trunk,face/side to side): Normal Best language (Describe picture, name items, read sentences): Mild to moderate aphasia Dysarthria (read several words): Normal articulation Extinction and Inattention: No abnormality - Total Score NIH Stroke Scale Score: 2 Past History - Past Medical History Allergies/Adverse Reactions: Allergies Allergy/AdvReac Type Severity Reaction Status Date / Time No Known Allergies Allergy Verified 11/10/17 09:34 Home Medications: Ambulatory Orders Atorvastatin Ca [Lipitor] 40 mg PO HS 07/10/17 Sulfamethoxazole/Trimethoprim [Sulfamethoxazole-Tmp Ds Tablet] 1 each PO DAILY 07/10/17 Insulin Detemir [Levemir Flextouch] 30 unit SQ BID #1 insuln.pen 07/11/17 Losartan Potassium 25 mg PO DAILY #30 tablet 07/11/17 COPD: No DVT: No Diabetes: Yes HTN: Yes - Suicide/Smoking/Psychosocial Hx Smoking History: Current every day smoker Have you smoked in the past 12 months: Yes Number of Cigarettes Smoked Daily: 20 Information on smoking cessation initiated: Yes 'Breaking Loose' booklet given: 11/10/17 Hx Alcohol Use: No Drug/Substance Use Hx: No Substance Use Type: None Review of Systems - Review of Systems Comments:: 11/10/17 10:29 GENERAL/CONSTITUTIONAL: No fever or chills. No weakness. HEAD, EYES, EARS, NOSE AND THROAT: No change in vision. No ear pain or discharge. No sore throat. CARDIOVASCULAR: No chest pain or shortness of breath RESPIRATORY: No cough, wheezing, or hemoptysis. GASTROINTESTINAL: No nausea, vomiting, diarrhea or constipation. GENITOURINARY: No dysuria, frequency, or change in urination. MUSCULOSKELETAL: No joint or muscle swelling or pain. No neck or back pain. SKIN: No rash NEUROLOGIC: + Left sided weakness, and sensory disturbance. No headache, vertigo , loss of consciousness. ENDOCRINE: No increased thirst. No abnormal weight change HEMATOLOGIC/LYMPHATIC: No anemia, easy bleeding, or history of blood clots. ALLERGIC/IMMUNOLOGIC: No hives or skin allergy. *Physical Exam - Vital Signs Last Vital Signs Temp Pulse Resp BP Pulse Ox 98.1 F 91 H 16 115/77 100 11/10/17 09:30 11/10/17 09:30 11/10/17 09:30 11/10/17 09:30 11/10/17 09:30 - Physical Exam Comments: 11/10/17 10:30 GENERAL: Awake, alert, and fully oriented, in no acute distress HEAD: No signs of trauma, normocephalic, atraumatic EYES: PERRLA, EOMI, sclera anicteric, conjunctiva clear ENT: Left sided depressed lateral commisure of mouth. Hearing grossly normal, nares patent, oropharynx clear without exudates. Moist mucosa NECK: Normal ROM, supple, no lymphadenopathy, JVD, or masses LUNGS: No distress, speaks full sentences, clear to auscultation bilaterally HEART: Regular rate and rhythm, normal S1 and S2, no murmurs, rubs or gallops, peripheral pulses normal and equal bilaterally. EXTREMITIES : Normal inspection, Normal range of motion, no edema. No clubbing or cyanosis. NEUROLOGICAL: Cranial nerves II through XII grossly intact. + Slurred speech, normal gait, no focal sensorimotor deficits. SKIN: Warm, Dry, normal turgor, no rashes or lesions noted ED Treatment Course - LABORATORY CBC & Chemistry Diagram: 11/10/17 10:10 11/10/17 10:10 Medical Decision Making - Medical Decision Making 11/10/17 10:31 52 y/o M w/PMH of HTN, HLD, IDDM who p/w L sided weakness/numbness. VSS, AF. [facility] stroke scale 0, NIHSS 2. Patient does not meet TpA inclusion d/t low NIHSS. DDx: CVA, TIA, hypoglycemia. ED Course: EKG:NSR with absent MARIBEL, STD. Nml interval duration, and axis. POC Glu: 314 CBC :Unremarkable 11/10/17 10:45 CTH: Unremarkable 11/10/17 10:48 Glu: 330 ASA 325 11/10/17 10:51 MRA neck and head MRI head 11/10/17 11:27 Admitted to Stroke unit Dr. An. *DC/Admit/Observation/Transfer Diagnosis at time of Disposition: Weakness - Discharge Dispostion Decision to Admit order: Yes - Referrals - Patient Instructions - Post Discharge Activity
[2017-11-10] MEDS ORDERED: ASPIRIN 325 MG ENTERIC COATED TABLET (FP) PO ONE (10:39)
[2017-11-10 10:40] LABS: ALBUMIN 3.2 g/dl (3.4-5.0); ANION GAP 5 (8-16); BILIRUBIN,TOTAL 0.3 mg/dL (0.2-1.0); BLOOD UREA NITROGEN 27 mg/dL (7-18); CALCIUM 9.3 mg/dL (8.5-10.1); CHLORIDE 102 mmol/L (98-107); CHOLESTEROL 183 mg/dL (50-200); CO2 30 mmol/L (21-32); CREATININE 1.5 mg/dL (0.7-1.3); POTASSIUM 4.5 mmol/L (3.5-5.1); SGOT/AST 9 U/L (15-37); SGPT/ALT 15 U/L (12-78); SODIUM 137 mmol/L (136-145); TOT PROT 6.5 g/dl (6.4-8.2); TRIGLYCERIDES 131 mg/dL (35-160)
[2017-11-10 10:41] LABS: ALK PHOS 103 U/L (45-117); HDL CHOLESTEROL 70 mg/dL (40-60)
[2017-11-10 10:47] LABS: INR 1.22 (0.82-1.09); PROTHROMBIN TIME (PATIENT) 13.8 SEC (9.7-13.0)
[2017-11-10 10:48] LABS: GLUCOSE,RANDOM 330 mg/dL (74-106)
[2017-11-10] MEDS ORDERED: ASPIRIN 325 MG TABLET ONE (10:50)
--- NOTE | 2017-11-10 13:51 | EKG ---
Test Reason : Blood Pressure : / mmHG Vent. Rate : 081 BPM Atrial Rate : 081 BPM P-R Int : 174 ms QRS Dur : 112 ms QT Int : 376 ms P-R-T Axes : 071 074 063 degrees QTc Int : 436 ms NORMAL SINUS RHYTHM NORMAL ECG WHEN COMPARED WITH ECG OF 10-JUL-2017 11:51, NO SIGNIFICANT CHANGE WAS FOUND Confirmed by CARON LECHUGA MD ([id number]) on 11/10/2017 1:51:15 PM Referred By: Confirmed By:CARON LECHUGA MD
--- NOTE | 2017-11-10 14:19 | HP ---
Admitting History and Physical - Admission Chief Complaint: Left sided weakness, left facial asymmetry History of Present Illness: This is a 52 year old male with pmhx HTN, HLD, DM II presented to the ED with increased left sided weakness and left facial droop. The patient was in his usual state health when he woke up, took his medication, had breakfast. Following breakfast he stood up to walk and his left leg and side was acutely weak with an unstable gait. PT noted him to have left sided facial droop, however has since resolved upon ED evaluation. Pt states he has had left sided weakness for 1 year, when he had similar symptoms, but he went to [facility] and was not told he had a TIA/CVA, was discharged. This morning the weakness and facial slur had worsened. Pt denies TINAJERO, fever, chills, palpitations, dizziness, sob, n/v, abdominal pain. History Source: Patient Limitations to Obtaining History: No Limitations - Past Medical History Cardiovascular: Yes: HTN, Hyperlipdemia Endocrine: Yes: Diabetes Mellitus - Smoking History Smoking history: Current every day smoker Have you smoked in the past 12 months: Yes Aproximately how many cigarettes per day: 20 - Alcohol/Substance Use Hx Alcohol Use: No - Social History ADL: Independent History of Recent Travel: No Home Medications - Allergies Allergies/Adverse Reactions: Allergies Allergy/AdvReac Type Severity Reaction Status Date / Time No Known Allergies Allergy Verified 11/10/17 09:34 - Home Medications Home Medications: Ambulatory Orders Atorvastatin Ca [Lipitor] 40 mg PO HS 07/10/17 Insulin Detemir [Levemir Flextouch] 30 unit SQ BID #1 insuln.pen 07/11/17 Review of Systems - Review of Systems Constitutional: reports: Weakness Eyes: reports: No Symptoms HENT: reports: No Symptoms Neck: reports: No Symptoms Cardiovascular: reports: No Symptoms Respiratory: reports: No Symptoms Gastrointestinal: reports: No Symptoms Genitourinary: reports: No Symptoms Musculoskeletal: reports: Muscle Weakness Integumentary: reports: No Symptoms Neurological: reports: Unsteady Gait, Weakness Endocrine: reports: No Symptoms Hematology/Lymphatic: reports: No Symptoms Psychiatric: reports: No Symptoms Physical Examination Vital Signs: Vital Signs Temperature 97.9 F 11/10/17 13:47 Pulse Rate 74 11/10/17 13:47 Respiratory Rate 20 11/10/17 13:47 Blood Pressure 125/89 11/10/17 13:47 O2 Sat by Pulse Oximetry (%) 100 11/10/17 12:30 Constitutional: Yes: Well Nourished Eyes: Yes: Conjunctiva Clear HENT: Yes: Atraumatic, Other (poor dentition) Cardiovascular: Yes: Regular Rate and Rhythm, S1, S2 Respiratory: Yes: Regular, CTA Bilaterally Gastrointestinal: Yes: Normal Bowel Sounds, Soft Extremities: Yes: WNL Edema: No Peripheral Pulses WNL: Yes Integumentary: Yes: WNL Neurological: Yes: Alert, Oriented, Cran Nerves II-XII Intact, Loss of Sensation (LLE), Numbness (L>R), Weakness (RUE 5/5 motor, LUE 4/5) Labs: CBC, BMP 11/10/17 10:10 11/10/17 10:10 Imaging - Results Chest X-ray: Image Reviewed Cat Scan: Report Reviewed EKG: Report Reviewed Problem List - Problems (1) TIA (transient ischemic attack) Code(s): G45.9 - TRANSIENT CEREBRAL ISCHEMIC ATTACK, UNSPECIFIED (2) HTN (hypertension) Code(s): I10 - ESSENTIAL (PRIMARY) HYPERTENSION (3) Weakness Code(s): R53.1 - WEAKNESS (4) Nicotine dependence Code(s): F17.200 - NICOTINE DEPENDENCE, UNSPECIFIED, UNCOMPLICATED Qualifiers: Nicotine product type: cigarettes (5) Diabetes Code(s): E11.9 - TYPE 2 DIABETES MELLITUS WITHOUT COMPLICATIONS Qualifiers: Diabetes mellitus type: other specified (including ELYSE) Diabetes mellitus 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 Acute Left sided weakness - Rule out TIA vs CVA ?lacunar infarct - Cardiac monitoring - Head CT neg - Out of TPA window - ECHO, carotid doppler ordered - Start ASA - Lipid panel noted, cont home lipitor - MRA head and neck ordered , MRI brain - Neurology consulted 2. HTN - Stable - On no meds 3. HLD - Lipitor 40mg hs 4. DM II - ISS, BGM ACHS - Levemir 30units BID - Check hga1c 5. SENA - Start gentle hydration 6. DVT - Heparin sq q8 Visit type - Emergency Visit Emergency Visit: Yes ED Registration Date: 11/10/17 Care time: The patient presented to the Emergency Department on the above date and was hospitalized for further evaluation of their emergent condition. - New Patient This patient is new to me today: Yes Date on this admission: 11/10/17 - Critical Care Critical Care patient: No Hospitalist Screening - Colonoscopy Questionnaire Colonoscopy Questionnaire: Colonoscopy Questionnaire - Patient: 50 - 75 years old and never had a screening colonoscopy: Unknown History of colon or rectal polyps, or CA: Unknown History of IBD, Crohn's disease or UC: Unknown History of abdominal radiation therapy as a child: Unknown - Relative: 1 with colon or rectal CA, or polyps at age 60 or younger: Unknown Colon or rectal CA diagnosed at age 45 or younger: Unknown Multiple relatives with colon or rectal CA: Unknown - Outcome: Screening Result: Negative Screen
[2017-11-10] MEDS: SODIUM CHLORIDE 1,000 ML IV SCH (15:00)
[2017-11-10] MEDS: INSULIN SLIDING SCALE (NOVOLOG) 1 VIAL SQ SCH ×2 (17:49→21:26)
[2017-11-10] MEDS ORDERED: INSULIN (NOVOLOG) ASPART 100 UNITS/ML 10ML VIAL ONE (20:58)
[2017-11-10] MEDS: INSULIN (LEVEMIR) 100 UNITS/ML UNITS SQ SCH (21:23)
[2017-11-10] MEDS: HEPARIN NA (PORCINE) 5,000 UNITS/ML 1ML VIAL SQ SCH (21:23)
[2017-11-10] MEDS ORDERED: ATORVASTATIN CA 40 MG TABLET (FP) PO SCH (22:00)
[2017-11-11] MEDS: HEPARIN NA (PORCINE) 5,000 UNITS/ML 1ML VIAL SQ SCH (06:07)
[2017-11-11] MEDS: INSULIN (LEVEMIR) 100 UNITS/ML UNITS SQ SCH (06:08)
[2017-11-11] MEDS: INSULIN SLIDING SCALE (NOVOLOG) 1 VIAL SQ SCH ×2 (06:08→12:33)
[2017-11-11] MEDS: SODIUM CHLORIDE 1,000 ML IV SCH (06:18)
[2017-11-11] MEDS ORDERED: INSULIN (NOVOLOG) ASPART 100 UNITS/ML 10ML VIAL ONE (06:55)
[2017-11-11] MEDS ORDERED: INSULIN (LEVEMIR) 100 UNITS/ML UNITS SQ ONE (06:55)
[2017-11-11 07:30] LABS: EOS % 13.7 % (0-4.5); HEMATOCRIT 36.9 % (35.4-49); HEMOGLOBIN 12.4 GM/dL (11.7-16.9); LYMPH % 32.2 % (8-40); MCH 27.9 pg (25.7-33.7); MCHC 33.5 g/dl (32.0-35.9); MEAN CELL VOLUME 83.1 fl (80-96); MEAN PLT VOLUME 9.9 fl (7.5-11.1); MONO % 5.7 % (3.8-10.2); NEUT % 47.4 % (42.8-82.8); PLATELET COUNT 217 K/MM3 (134-434); RBC 4.44 M/mm3 (4.00-5.60); WHITE BLOOD COUNT 6.2 K/mm3 (4.0-10.0)
[2017-11-11 09:56] VITALS: BP 139/90; PULSE 75; TEMP 98
[2017-11-11] MEDS ORDERED: ASPIRIN COATED 81 MG TABLET.EC PO SCH (10:00)
[2017-11-11 10:15] LABS: URINE APPEARANCE SLCLOUDY; URINE BILIRUBIN NEGATIVE (<2.0 mg/dL); URINE COLOR YELLOW; URINE GLUCOSE (UA) 3+ (NEGATIVE); URINE KETONE NEGATIVE (NEGATIVE); URINE LEUK ESTERASE NEGATIVE (NEGATIVE); URINE NITRITE NEGATIVE (NEGATIVE); URINE UROBILINOGEN NEGATIVE mg/dL (0.2-1.0)
[2017-11-11 10:16] LABS: URINE PROTEIN 1+ (NEGATIVE)
[2017-11-11 10:18] LABS: EPI CELLS FEW /HPF (FEW); URINE HYALINE CAST 8 /lpf
--- NOTE | 2017-11-11 12:17 | CONSULT ---
Consult - text type - Consultation Consultation Note: NEUROLOGY CONSULTATION is greatly appreciated: Events reviewed and discussed with Dr. Rajput yesterday and Dr. Goyal this morning. This 52 yo RH man is examined with his present. 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 PMH siog for DM and high cholesterol. On insulin and atorvastatin. Although DM was diagnosed 2 years ago he had polyuria and polydipsia for many years prior. Last summer he developed numbness over the left face and body and was evaluated at [facility] including CT of head. Since that time he has had slurred speech and episodic drooling. Yesterday AM he developed weakness of the left body with clear change in gait. In ER: UG=759/88 CT of head (reviewed): essentially normal MRI of brain (reviewed): Scattered microvascular changes including 2 discrete lacunar infarcts in the right Devan. KADY: No bruits. Cor reg NEURO: MS normal Dysarthric speech Mild left facial decreased tongue ALEJANDRA's. Gag OK No drift. Decreased ALEJANDRA's left hand. Normal reflexes except absent AJ's. Toes downgoing Decreased vibration left foot Min left circumduction IMP: Diffuse diabetic microvascular changes in the brain, including the devan Two clinical microvascular strokes. SUGGEST: Add BP meds to normalize BP (120/70) Diabetic control with home monitoring. Continue cholesterol RX Add clopidogrel 75 mg PO qd Out patient halter monitor and neurology follow-up. Thank you very much, Sancho Jeffery MD
[2017-11-11 12:23] LABS: ALBUMIN 3.1 g/dl (3.4-5.0); ANION GAP 11 (8-16); BLOOD UREA NITROGEN 30 mg/dL (7-18); CALCIUM 8.9 mg/dL (8.5-10.1); CHLORIDE 107 mmol/L (98-107); CO2 23 mmol/L (21-32); CREATININE 1.3 mg/dL (0.7-1.3); GLUCOSE,RANDOM 123 mg/dL (74-106); POTASSIUM 4.3 mmol/L (3.5-5.1); SGOT/AST 10 U/L (15-37); SGPT/ALT 13 U/L (12-78); SODIUM 141 mmol/L (136-145)
[2017-11-11 12:25] LABS: ALK PHOS 96 U/L (45-117); BILIRUBIN,TOTAL 0.2 mg/dL (0.2-1.0); TOT PROT 6.1 g/dl (6.4-8.2)
--- NOTE | 2017-11-11 13:23 | DS ---
Physical Exam: SUBJECTIVE: Patient seen and examined OBJECTIVE: Vital Signs Period Temp Pulse Resp BP Sys/Hanson Pulse Ox Last 24 Hr 97.8 F-98 F 71-77 18-20 125-156/70-90 100-100 PHYSICAL EXAM GENERAL: The patient is awake, alert, and fully oriented, in no acute distress. HEAD: Normal with no signs of trauma. EYES: PERRL, extraocular movements intact, sclera anicteric, conjunctiva clear. ENT: Ears normal, nares patent, oropharynx clear without exudates, moist mucous membranes. NECK: Trachea midline, full range of motion, supple. LUNGS: Breath sounds equal, clear to auscultation bilaterally, no wheezes, no crackles, no accessory muscle use. HEART: Regular rate and rhythm, S1, S2 without murmur, rub or gallop. ABDOMEN: Soft, nontender, nondistended, normoactive bowel sounds, no guarding, no rebound, no hepatosplenomegaly, no masses. EXTREMITIES: 2+ pulses, warm, well-perfused, no edema. NEUROLOGICAL: Cranial nerves II through XII grossly intact. Normal speech, gait not observed. PSYCH: Normal mood, normal affect. SKIN: Warm, dry, normal turgor, no rashes or lesions noted. LABS Laboratory Results - last 24 hr 11/10/17 11/10/17 11/11/17 12:30 21:06 06:00 WBC RBC Hgb Hct MCV MCH MCHC RDW Plt Count MPV Absolute Neuts (auto) Neutrophils % Lymphocytes % Monocytes % Eosinophils % Basophils % Nucleated RBC % Sodium Potassium Chloride Carbon Dioxide Anion Gap BUN Creatinine Creat Clearance w eGFR POC Glucometer 297 Random Glucose Hemoglobin A1c % Calcium Total Bilirubin AST ALT Alkaline Phosphatase Total Protein Albumin Urine Color Yellow Urine Appearance Slcloudy Urine pH 5.0 Ur Specific [place] 1.024 Urine Protein 1+ H Urine Glucose (UA) 3+ H Urine Ketones Negative Urine Blood Negative Urine Nitrite Negative Urine Bilirubin Negative Urine Urobilinogen Negative Ur Leukocyte Esterase Negative Urine WBC (Auto) 1 Urine RBC (Auto) None Ur Epithelial Cells Few Hyaline Casts 8 Blood Type A POSITIVE 11/11/17 11/11/17 11/11/17 06:04 06:30 06:30 WBC 6.2 RBC 4.44 Hgb 12.4 Hct 36.9 MCV 83.1 MCH 27.9 MCHC 33.5 RDW 13.0 Plt Count 217 MPV 9.9 D Absolute Neuts (auto) 2.9 Neutrophils % 47.4 Lymphocytes % 32.2 D Monocytes % 5.7 Eosinophils % 13.7 H Basophils % 1.0 Nucleated RBC % 0 Sodium 141 Potassium 4.3 Chloride 107 Carbon Dioxide 23 D Anion Gap 11 BUN 30 H Creatinine 1.3 Creat Clearance w eGFR 57.97 POC Glucometer 124 Random Glucose 123 H D Hemoglobin A1c % Calcium 8.9 Total Bilirubin 0.2 AST 10 L ALT 13 Alkaline Phosphatase 96 Total Protein 6.1 L Albumin 3.1 L Urine Color Urine Appearance Urine pH Ur Specific Farwell Urine Protein Urine Glucose (UA) Urine Ketones Urine Blood Urine Nitrite Urine Bilirubin Urine Urobilinogen Ur Leukocyte Esterase Urine WBC (Auto) Urine RBC (Auto) Ur Epithelial Cells Hyaline Casts Blood Type 11/11/17 11/11/17 06:30 12:05 WBC RBC Hgb Hct MCV MCH MCHC RDW Plt Count MPV Absolute Neuts (auto) Neutrophils % Lymphocytes % Monocytes % Eosinophils % Basophils % Nucleated RBC % Sodium Potassium Chloride Carbon Dioxide Anion Gap BUN Creatinine Creat Clearance w eGFR POC Glucometer 195 Random Glucose Hemoglobin A1c % 11.0 H D Calcium Total Bilirubin AST ALT Alkaline Phosphatase Total Protein Albumin Urine Color Urine Appearance Urine pH Ur Specific Farwell Urine Protein Urine Glucose (UA) Urine Ketones Urine Blood Urine Nitrite Urine Bilirubin Urine Urobilinogen Ur Leukocyte Esterase Urine WBC (Auto) Urine RBC (Auto) Ur Epithelial Cells Hyaline Casts Blood Type HOSPITAL COURSE: Date of Admission:11/10/17 Date of Discharge: 11/11/17 Discharge Summary Reason For Visit: WEAKNESS,STROKE Current Active Problems HTN (hypertension) (Acute) TIA (transient ischemic attack) (Acute) Weakness (Acute) Condition: Stable - Instructions Diet, Activity, Other Instructions: Please return to the ED for any new, persistent, or worsening symptoms. Follow up with your PCP in 1 week Take new medication plavix as directed Continue home medications as directed Follow up with neurologist in 2 weeks for continued work up Referrals: Sancho Jeffery MD [Staff Physician] - 2 Weeks (neurology follow up ) José Miguel Dubon MD [Staff Physician] - 2 Weeks (Diabetes doctor ) Disposition: HOME - Home Medications Comprehensive Discharge Medication List: Ambulatory Orders Atorvastatin Ca [Lipitor] 40 mg PO HS 07/10/17 Insulin Detemir [Levemir Flextouch] 30 unit SQ BID #1 insuln.pen 07/11/17 Lisinopril [Prinivil] 20 mg PO DAILY 11/10/17 Clopidogrel Bisulfate [Plavix -] 75 mg PO DAILY #30 tablet 11/11/17 Problem List - Problems (1) TIA (transient ischemic attack) Code(s): G45.9 - TRANSIENT CEREBRAL ISCHEMIC ATTACK, UNSPECIFIED (2) HTN (hypertension) Code(s): I10 - ESSENTIAL (PRIMARY) HYPERTENSION (3) Weakness Code(s): R53.1 - WEAKNESS (4) Nicotine dependence Code(s): F17.200 - NICOTINE DEPENDENCE, UNSPECIFIED, UNCOMPLICATED Qualifiers: Nicotine product type: cigarettes (5) Diabetes Code(s): E11.9 - TYPE 2 DIABETES MELLITUS WITHOUT COMPLICATIONS Qualifiers: Diabetes mellitus type: other specified (including ELYSE) 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
== END 2017-11-11 15:19 | disposition home or self-care (01) ==
LOC: JER 09:26 → JERBED 11:25 → J4S 12:53
PROVIDERS: ADMIT Internal Medicine; ATTEND Nurse Practitioner Acute Care
PROC: 3E0337Z Introduction of Electrolytic and Water Balance Substance into Peripheral Vein, Percutaneous Approach (ICD-10-PCS; principal; 2017-11-10)
PROC: 3E013VG Introduction of Insulin into Subcutaneous Tissue, Percutaneous Approach (ICD-10-PCS; 2017-11-10)
PROC: 3E013GC Introduction of Other Therapeutic Substance into Subcutaneous Tissue, Percutaneous Approach (ICD-10-PCS; 2017-11-10)
DX: G45.9 Transient cerebral ischemic attack, unspecified (principal); I10 Essential (primary) hypertension; R53.1 Weakness; E78.5 Hyperlipidemia, unspecified; E11.65 Type 2 diabetes mellitus with hyperglycemia; F17.210 Nicotine dependence, cigarettes, uncomplicated; Z79.4 Long term (current) use of insulin
CPT/HCPCS: 36415; 70450-TC; 70544-TC; 70547-TC; 70551-TC; 71045-TC-FY; 80053; 81003; 81015; 82465; 82550; 82962; 83036; 83718; 83721; 84478; 84484; 85025; 85610; 86850; 86900; 86901; 93005; 93010; 93880-TC; 96372; 99285-25; G0378; J1644; J7030

== ENCOUNTER 2017-11-23 07:20 | Day surgery (SDC) | payer OTHER ==
[2017-11-22 12:25] VITALS: BMI 21.7
--- NOTE | 2017-11-23 09:25 | PROC ---
Endoscopy Procedure Endoscopy procedure completed. Please see scanned procedure report.
[2017-11-23 10:09] VITALS: TEMP 97.7
[2017-11-23 11:44] VITALS: BP 101/66; PULSE 64
--- NOTE | 2017-11-24 13:25 | PATH ---
Surgical Pathology Report Patient Name: FELICE GUY [facility]. Rec. #: [id number] /Age/Gender: 1965 (Age: 52) / M Account: [id number] Location: U-ENDOSCOPY Taken: 11/23/2017 Received: 11/23/2017 Reported: 11/24/2017 Physicians: Austyn Munoz M.D. Specimen(s) Received BX DESCENDING COLON POLYP Clinical History Family history of colonic polyp Postoperative diagnosis: Colon polyp Final Diagnosis DESCENDING COLON, POLYP, BIOPSY: TUBULAR ADENOMA. Electronically Signed Esperanza Mercer M.D. Gross Description Received in formalin, labeled "biopsy descending colon polyp" is a merrill, irregular portion of soft tissue measuring 0.3 cm. in greatest dimension. The specimen is submitted in toto in one cassette. 11/23/201711/23/2017
== END 2017-11-23 11:43 | disposition home or self-care (01) ==
LOC: JASU-ENDO 07:20
PROVIDERS: ATTEND Internal Medicine Gastroenterology
PROC: 0DBM8ZX Excision of Descending Colon, Via Natural or Artificial Opening Endoscopic, Diagnostic (ICD-10-PCS; principal; 2017-11-23 08:00)
DX: K63.5 Polyp of colon (principal); J44.9 Chronic obstructive pulmonary disease, unspecified; I10 Essential (primary) hypertension; E11.9 Type 2 diabetes mellitus without complications; Z86.73 Personal history of transient ischemic attack (TIA), and cerebral infarction without residual deficits
CPT/HCPCS: 88305-TC

== ENCOUNTER 2018-08-29 20:00 | Emergency (ER) | payer OTHER ==
[2018-08-29 20:15] VITALS: BP 145/90; PULSE 79; TEMP 98.1; BMI 20.6
--- NOTE | 2018-08-29 20:30 | PDOC ---
History of Present Illness - General Chief Complaint: Edema Stated Complaint: LEGS ARE SWOLLEN Time Seen by Provider: 08/29/18 20:18 History Source: Patient Exam Limitations: No Limitations - History of Present Illness Initial Comments: Patient is a 53-year-old male who states that he wore tight socks and boots today while at work and when he got home and took his boots off he noticed that he had bilateral feet edema. Patient denies calf edema or history of DVTs. Patient denies pain. Pain is 0-10. Patient denies history of CHF. Patient denies any aggravating factors however, states that since he has removed his boots and his socks the edema is slowly improving. Pt denies CP or shortness of breath. 08/29/18 20:25 Past History - Travel Traveled outside of the country in the last 30 days: No Close contact w/someone who was outside of country & ill: No - Past Medical History Allergies/Adverse Reactions: Allergies Allergy/AdvReac Type Severity Reaction Status Date / Time No Known Allergies Allergy Verified 08/29/18 20:13 Home Medications: Ambulatory Orders Atorvastatin Ca [Lipitor] 80 mg PO HS 07/10/17 Lisinopril [Prinivil] 40 mg PO DAILY 11/10/17 Clopidogrel Bisulfate [Plavix -] 75 mg PO DAILY #30 tablet 11/11/17 Amlodipine Besylate 5 mg PO DAILY 11/22/17 Insulin Detemir [Levemir Flextouch] 30 unit SQ HS 11/22/17 Insulin Detemir [Levemir Flextouch] 40 unit SQ AM 11/22/17 metFORMIN HCL [Metformin ER Osmotic] 500 mg PO DAILY 11/22/17 Anemia: No Asthma: No Cancer: No Cardiac Disorders: No CVA: Yes (2 TIA) COPD: No CHF: No DVT: No Dementia: No Diabetes: Yes GI Disorders: No Disorders: No HTN: Yes Hypercholesterolemia: Yes Liver Disease: No Seizures: No Thyroid Disease: No - Suicide/Smoking/Psychosocial Hx Smoking History: Current every day smoker Have you smoked in the past 12 months: Yes Number of Cigarettes Smoked Daily: 5 Information on smoking cessation initiated: No 'Breaking Loose' booklet given: 11/10/17 Hx Alcohol Use: No Drug/Substance Use Hx: No Substance Use Type: None Hx Substance Use Treatment: No Review of Systems - Review of Systems Able to Perform ROS?: Yes Constitutional: No: Chills, Fever Respiratory: No: Cough Cardiac (ROS): No: Chest Pain *Physical Exam - Vital Signs Last Vital Signs Temp Pulse Resp BP Pulse Ox 98.1 F 79 18 145/90 100 08/29/18 20:13 08/29/18 20:13 08/29/18 20:13 08/29/18 20:13 08/29/18 20:13 - Physical Exam Comments: Constitutional: VS stated, pt appears in no apparent distress; sitting in chair. Skin: Warm and dry. Intact, no lesions or excoriations. Head: Normocephalic; atraumatic Eyes: conjunctiva pink without injection or discharge. Throat: Oropharynx with pink and moist mucosa. Lungs: Bilateral breath sounds clear upon auscultation. No adventitious breath sounds. Heart: Regular rate and rhythm, S1/S2 auscultated. No murmurs, rubs, or gallops. No visible pulsations, heaves, or lifts on precordium. Abdomen: Soft and non-tender. Musculoskeletal: Focused on the lower extremituies bilaterally. Right calf is supple, nonedematous and foot is nonedematous. Left calf is supple, nonedematous. Negative Homans sign. Patient's left foot is mildly edematous. +1 pitting edema. Pedal pulses present, cap refill less than 2 seconds, sensation intact. No pain upon palpation. Neurologic: Awake, alert. Conversation fluent. 08/29/18 20:26 Medical Decision Making - Medical Decision Making Pt's WELLS score 0. He has no history of DVTs. He states that the edema is improving since he removed the tight socks and boots. Patient has not elevated his lower extremities. Patient's calves are supple and nontender. I do not feel an ultrasound is warranted at this time. Precautions given. 08/29/18 20:28 *DC/Admit/Observation/Transfer Diagnosis at time of Disposition: Edema of left foot - Discharge Dispostion Disposition: HOME Condition at time of disposition: Good - Referrals Referrals: Iván Braga MD [Primary Care Provider] - - Patient Instructions Printed Discharge Instructions: DI for Peripheral Edema, Unilateral Additional Instructions: Elevate your lower extremities and if the edema spreads to your calf please return for an ultrasound. Please do not wear the tight boots and socks. - Post Discharge Activity
== END 2018-08-29 20:39 | disposition home or self-care (01) ==
LOC: JERFT 20:00
DX: R60.0 Localized edema (principal); I10 Essential (primary) hypertension; E78.00 Pure hypercholesterolemia, unspecified; E11.9 Type 2 diabetes mellitus without complications; Z79.4 Long term (current) use of insulin; Z86.73 Personal history of transient ischemic attack (TIA), and cerebral infarction without residual deficits; F17.210 Nicotine dependence, cigarettes, uncomplicated
CPT/HCPCS: 99281-25

== ENCOUNTER 2019-05-14 17:03 | Inpatient (IN) | payer OTHER ==
--- NOTE | 2019-05-14 17:28 | PDOC ---
Attending Attestation - Resident Resident Name: [email or web address] - ED Attending Attestation I have performed the following: I have examined & evaluated the patient, The case was reviewed & discussed with the resident, I agree w/resident's findings & plan, Exceptions are as noted - HPI HPI: 05/14/19 17:27 54y M hx of htn, cva, presents with complaint of double vision and dizziness. Pt states he was feeling well yetserday, went to bed last night fine, woke up this morning, noted he had double vision with slurred speech when he woke up and also noted feeling lighteaded. Pt went to ophtho today who nocied he had a medial rectus palsy and sent him to the ED for evaluation. Pt states he never had a problem with double vision in the past. Denies any other sypmtoms including focal weakness, numbnes/tingling/weakness, headache, current dizziness (only notes present when he is ambulating), n/v, chest pain, shortness of breath, palpitations, abd pain, back pain, neck pain. PMD: Omi Neuro: Dr. Alan exam: GENERAL: The patient is awake, alert, and fully oriented, Nontoxic - in no acute distress. HEAD: Normocephalic, atraumatic. EYES: L medial rectus palsy, otherwise intact ENT: Normal voice, Moist mucous membranes. NECK: Normal range of motion, supple LUNGS: Breath sounds equal, clear to auscultation bilaterally. No wheezes, no rhonchi, no rales. HEART: Regular rate and rhythm, without murmur, rub or gallop. ABDOMEN: Soft, nontender, No guarding, no rebound.No CVA tenderness EXTREMITIES: Normal range of motion, no edema. No cyanosis. No erythema, or tenderness. NEUROLOGICAL: No facial assymetry, slurred speech, movnig all 4 extremities spontaneously symmetrically, sensation intact symmetrically, normal finger to nose, rapid alternating movements PSYCH: Normal mood, normal affect. SKIN: Warm, Dry, normal turgor, concern for CVA pts bp elevated bp control NIHSS = 1 outside of window for TPA 05/14/19 17:55 ct negative for bleed will admit for further management - Physicial Exam PE: 05/20/19 07:51 see above - Critical Care Time Total Critical Care Time: 35 Critical Care Statement: The care of this patient involved high complexity decision making to prevent further life threatening deterioration of the patient 's condition and/or to evaluate & treat vital organ system(s) failure or risk of failure. - Medical Decision Making 05/20/19 07:51 see above Heart Score/ECG Review - ECG Impressions Comment:: 05/14/19 18:56 ekg erformend 17:33 rate of 79 sinus rhythm normal axis no st wave changes suggestive of acute ischemia tPA Exclusion checklist 3-4.5h - Time Elapsed Date last known well: 05/14/19 Time last known well: 22:00 (last known well to time of arrival >19hrs) Elaspsed time: 5 Day(s) and 9 Hour(s) and 55 Minutes - Thrombolytic Therapy Candidate Is patient eligible for thrombolytic therapy: No - Exclusion Criteria 3-4.5 hr SBP greater than 185 or DBP greater than 110mmHg despite tx: Yes - Ineligibility reason(s) Reasons No tPA given: Outside of window - delayed arrival
[2019-05-14] MEDS ORDERED: LABETALOL HCL 5 MG/1 ML (100MG/20 ML VIAL) IVPUSH ONE ×3 (17:52→21:19)
[2019-05-14 18:07] LABS: INR 1.13 (0.83-1.09); PROTHROMBIN TIME (PATIENT) 13.4 SEC (9.7-13.0)
[2019-05-14 18:09] LABS: ACTIVATED PTT 39.5 SECONDS (25.2-36.5)
[2019-05-14 18:15] LABS: BASO % 0.4 % (0-2.0); EOS % 2.8 % (0-4.5); HEMATOCRIT 30.6 % (35.4-49); HEMOGLOBIN 10.3 GM/dL (11.7-16.9); LYMPH % 15.1 % (8-40); MCH 28.3 pg (25.7-33.7); MCHC 33.5 g/dl (32.0-35.9); MEAN CELL VOLUME 84.5 fl (80-96); MEAN PLT VOLUME 8.5 fl (7.5-11.1); NEUT % 76.7 % (42.8-82.8); RBC 3.62 M/mm3 (4.00-5.60); RDW 13.4 % (11.9-15.9); WHITE BLOOD COUNT 5.7 K/mm3 (4.0-10.0)
[2019-05-14 18:23] LABS: ALBUMIN 2.8 g/dl (3.4-5.0); BILIRUBIN,TOTAL 0.2 mg/dL (0.2-1); BLOOD UREA NITROGEN 20.6 mg/dL (7-18); CALCIUM 8.3 mg/dL (8.5-10.1); CREATININE 1.3 mg/dL (0.55-1.3); TOT PROT 5.6 g/dl (6.4-8.2)
[2019-05-14] MEDS: SODIUM CHLORIDE 1,000 ML IV SCH (18:23)
[2019-05-14 18:31] LABS: EPI CELLS 6.6 /HPF (0-5/HPF); HYALINE CASTS 1 /lpf (0-8); PH,URINE 7.5 (5.0-8.0); URINE APPEARANCE CLEAR; URINE BACTERIA 88.8 /hpf (NEGATIVE); URINE BILIRUBIN NEGATIVE (NEGATIVE); URINE COLOR YELLOW; URINE GLUCOSE (UA) 2+ (NEGATIVE); URINE KETONE NEGATIVE (NEGATIVE); URINE LEUK ESTERASE NEGATIVE (NEGATIVE); URINE NITRITE NEGATIVE (NEGATIVE); URINE PROTEIN 4+ (NEGATIVE); URINE RBC 14 /hpf (0-4); URINE WBC 4 /hpf (0-5)
[2019-05-14 18:33] LABS: PLATELET COUNT 274 K/MM3 (134-434)
--- NOTE | 2019-05-14 18:50 | PDOC ---
History of Present Illness - General Chief Complaint: CVA/TIA Stated Complaint: POSSIBLE STROKE Time Seen by Provider: 05/14/19 17:10 History Source: Patient Exam Limitations: No Limitations - History of Present Illness Initial Comments: 05/14/19 19:49 54 yo male pmh HTN, HLD, DM and CVA 2 years ago with L sided residual deficits presents to the ED after waking up with with new blurry vision and dizziness at 5 am today. Pt went to his Wrong Address Clerk today, noted discongugated vision and sent to the ED. Pt went to the same Optho yesterday, did not have this finding. Pt denies TINAJERO, N/V, LOC, new weakness/sensory deficits, CP/palpitation, SOB, F/C, abdominal pain or changes in bowel or bladder habits NIH Stroke Scale - Last Known Well Date/Time & Onset Date Last Known Well: 05/13/19 Time Last Known Well: 21:00 - Initial Evaluation Level of consciousness: Alert Ask patient the month and their age: Answers both correctly Ask patient to open & close eyes; make fist and let go: Obeys both correctly Best gaze (horizontal eye movement): Partial gaze palsy Visual field testing: No visual field loss Facial paresis (Show teeth/raise eyebrows/close eyes tight): Normal symmetrical movement Motor Function: Left Arm: Normal Motor Function: Right Arm: Normal (extends arm 90 (or 45) degrees for 10 seconds without drift Motor Function: Left Leg: Normal (extends leg 30 degrees for 5 seconds without drift) Motor Function: Right Leg: Normal (extends leg 30 degrees for 5 seconds without drift) Limb Ataxia: No ataxia Sensory(Use pinprick test arms,legs,trunk,face/side to side): Normal Best language (Describe picture, name items, read sentences): No Aphasia Dysarthria (read several words): Normal articulation Extinction and Inattention: No abnormality - Total Score NIH Stroke Scale Score: 1 Past History - Past Medical History Allergies/Adverse Reactions: Allergies Allergy/AdvReac Type Severity Reaction Status Date / Time No Known Allergies Allergy Verified 05/14/19 17:07 Home Medications: Ambulatory Orders Atorvastatin Ca [Lipitor] 80 mg PO HS 07/10/17 Lisinopril [Prinivil] 10 mg PO DAILY 11/10/17 Amlodipine Besylate 5 mg PO HS 11/22/17 metFORMIN HCL [Metformin ER Osmotic] 500 mg PO BID 11/22/17 Aspirin 81 mg PO DAILY 05/14/19 Clopidogrel Bisulfate [Plavix -] 75 mg PO HS 05/14/19 Gabapentin 200 mg PO BID 05/14/19 Labetalol HCl [Normodyne -] 200 mg PO BID 05/14/19 Anemia: No Asthma: No Cancer: No Cardiac Disorders: No CVA: Yes (2 TIA) COPD: No CHF: No DVT: No Dementia: No Diabetes: Yes GI Disorders: No Disorders: No HTN: Yes Hypercholesterolemia: Yes Liver Disease: No Seizures: No Thyroid Disease: No - Psycho Social/Smoking Cessation Hx Smoking History: Current every day smoker Have you smoked in the past 12 months: Yes Number of Cigarettes Smoked Daily: 10 Information on smoking cessation initiated: No 'Breaking Loose' booklet given: 11/10/17 Hx Alcohol Use: No Drug/Substance Use Hx: No Substance Use Type: None Hx Substance Use Treatment: No Review of Systems - Review of Systems Constitutional: No: Chills, Fever HEENTM: Yes: Blurred Vision, Double Vision Respiratory: No: Shortness of Breath, Productive cough Cardiac (ROS): No: Chest Pain, Edema ABD/GI: No: Constipated, Diarrhea, Nausea, Vomiting Integumentary: No: Bruising, Change in Color Neurological: Yes: Unsteady Gait, Dizziness. No: Headache, Numbness, Paresthesia, Seizure, Tremors, Weakness *Physical Exam - Vital Signs Last Vital Signs Temp Pulse Resp BP Pulse Ox 80 18 209/109 H 100 05/14/19 17:04 05/14/19 17:04 05/14/19 17:04 05/14/19 17:04 - Physical Exam General Appearance: Yes: Nourished, Appropriately Dressed. No: Apparent Distress HEENT: positive: EOMI, STEPHANIE, Other (medial rectus L eye no adduction) Neck: positive: Supple. negative: Carotid bruit, Stridor, Rigidity Respiratory/Chest: positive: Lungs Clear, Normal Breath Sounds. negative: Respiratory Distress, Crackles, Rales, Rhonchi, Stridor, Wheezing Cardiovascular: positive: Regular Rhythm, Regular Rate, S1, S2. negative: Edema , JVD, Murmur Vascular Pulses: Dorsalis-Pedis (R): 4+, Doralis-Pedis (L): 4+ Gastrointestinal/Abdominal: positive: Flat, Soft. negative: Pulsatile Mass, Distended, Guarding, Rebound, Tenderness Musculoskeletal: negative: CVA Tenderness Extremity: positive: Normal Capillary Refill, Normal Inspection, Normal Range of Motion Integumentary: positive: Normal Color, Dry, Warm Neurologic: positive: Fully Oriented, Alert, Normal Mood/Affect, Normal Response , Motor Strength 5/5. negative: health facilities surveyor II-XII NML intact (CN3 palsy on the left), Facial Droop, Sensory Deficit, Confused, Disoriented ED Treatment Course - LABORATORY CBC & Chemistry Diagram: 05/14/19 17:40 05/14/19 17:40 - ADDITIONAL ORDERS Additional order review: Laboratory Results 05/14/19 05/14/19 05/14/19 17:57 17:45 17:40 PT with INR INR PTT (Actin FS) Sodium 144 Potassium 4.0 Chloride 111 H Carbon Dioxide 29 Anion Gap 3 L BUN 20.6 H Creatinine 1.3 Est GFR (CKD-EPI)AfAm 71.69 Est GFR (CKD-EPI)NonAf 61.86 Random Glucose 228 H Calcium 8.3 L Total Bilirubin 0.2 AST 19 ALT 24 Alkaline Phosphatase 113 Creatine Kinase Creatine Kinase Index CK-MB (CK-2) Troponin I Total Protein 5.6 L Albumin 2.8 L Triglycerides 82 Cholesterol 209 H Total LDL Cholesterol 88 HDL Cholesterol 104 H Urine Color Yellow Urine Appearance Clear Urine pH 7.5 D Ur Specific Story 1.017 Urine Protein 4+ H Urine Glucose (UA) 2+ H Urine Ketones Negative Urine Blood 2+ H Urine Nitrite Negative Urine Bilirubin Negative Urine Urobilinogen 1.0 Ur Leukocyte Esterase Negative Urine WBC (Auto) 4 Urine RBC (Auto) 14 Urine Casts (Auto) 1 U Epithel Cells (Auto) 6.6 U Sm Round Cell (Auto) None Urine Bacteria (Auto) 88.8 Blood Type A POSITIVE Antibody Screen Negative 05/14/19 05/14/19 17:40 17:40 PT with INR 13.40 H INR 1.13 H PTT (Actin FS) 39.5 H Sodium Potassium Chloride Carbon Dioxide Anion Gap BUN Creatinine Est GFR (CKD-EPI)AfAm Est GFR (CKD-EPI)NonAf Random Glucose Calcium Total Bilirubin AST ALT Alkaline Phosphatase Creatine Kinase 812 H Creatine Kinase Index 0.6 CK-MB (CK-2) 5.2 H Troponin I < 0.02 Total Protein Albumin Triglycerides Cholesterol Total LDL Cholesterol HDL Cholesterol Urine Color Urine Appearance Urine pH Ur Specific Story Urine Protein Urine Glucose (UA) Urine Ketones Urine Blood Urine Nitrite Urine Bilirubin Urine Urobilinogen Ur Leukocyte Esterase Urine WBC (Auto) Urine RBC (Auto) Urine Casts (Auto) U Epithel Cells (Auto) U Sm Round Cell (Auto) Urine Bacteria (Auto) Blood Type Antibody Screen 05/14/19 17:40 RBC 3.62 L MCV 84.5 MCHC 33.5 RDW 13.4 MPV 8.5 D Neutrophils % 76.7 D Lymphocytes % 15.1 D Monocytes % 5.0 Eosinophils % 2.8 Basophils % 0.4 - RADIOLOGY Radiology Studies Ordered: Category Date Time Status BRAIN MRA W/O CONTRAST [MRI] Stat MRI 05/14/19 17:49 Ordered BRAIN MRI W/O CONTRAST [MRI] Stat MRI 05/14/19 17:49 Ordered Medical Decision Making - Medical Decision Making 05/14/19 19:53 54 yo male pmh HTN, HLD, DM and CVA 2 years ago with L sided residual deficits presents to the ED after waking up with with new blurry vision and dizziness at 5 am today. Pt went to his Wrong Address Clerk today, noted discongugated vision and sent to the ED. Pt went to the same Optho yesterday, did not have this finding. Pt denies TINAJERO, N/V, LOC, new weakness/sensory deficits, CP/palpitation, SOB, F/C, abdominal pain or changes in bowel or bladder habits vitals show elevated BP, will treat for target below 180 Exam shows L eye inability to Adduct with down and out, pupils equal in size, no ptosis noted NIH 1 Discussed case with Neurology, Dr. Clancy, states likely diabetic changes and will have MRI and MRA brain non con and admit for new changes, possible aneurysm (will review MRI) 05/14/19 21:20 Multiple rounds of labetolol, pt pressure persistent arount 200 systolic. Goal is around 180 due to possible stroke. Pt will receive more labetolol and admit to stroke Discharge - Discharge Information Problems reviewed: Yes Clinical Impression/Diagnosis: Cerebrovascular accident (CVA), Cranial nerve III palsy Condition: Stable - Admission Yes - Follow up/Referral Referrals: Lidia Griffin MD [Primary Care Provider] - - Patient Discharge Instructions - Post Discharge Activity
[2019-05-14] MEDS ORDERED: ASPIRIN 325 MG ENTERIC COATED TABLET (FP) PO ONE (21:29)
[2019-05-14] MEDS ORDERED: ATORVASTATIN CA 80 MG TABLET (FP) PO ONE (21:29)
[2019-05-14] MEDS ORDERED: ASPIRIN 325 MG ENTERIC COATED TABLET (FP) ONE (21:56)
[2019-05-14] MEDS ORDERED: ATORVASTATIN CA 80 MG TABLET (FP) ONE (21:57)
--- NOTE | 2019-05-14 23:52 | HP ---
Admitting History and Physical - Primary Care Physician PCP: Lidia Griffin - Admission Chief Complaint: Blurred Vision, Dizziness History of Present Illness: This is a 54 y/o man with a PMHx of HTN, HLD, DM, CVA (2 years ago with L sided residual deficits). Who presents to the ED after waking up with with new blurry vision and dizziness at 5 am today. Patient went to his Facilities Maintenance Technician today, noted discongugated vision and was sent to the ED. Patient went to the same Facilities Maintenance Technician yesterday, but did not have this finding. Patient denies TINAJERO, N/V , LOC, new weakness/sensory deficits. Patient denies fever,chills, cough, SOB, CP, palpitations, AP, changes in bowel or bladder habits. 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 Cardiovascular: Yes: HTN, Hyperlipdemia Endocrine: Yes: Diabetes Mellitus - Smoking History Smoking history: Current every day smoker Have you smoked in the past 12 months: Yes Aproximately how many cigarettes per day: 10 - Alcohol/Substance Use Hx Alcohol Use: No - Social History Usual Living Arrangement: Yes: With Spouse Do you think of yourself as: Straight/Heterosexual ADL: Independent History of Recent Travel: No Home Medications - Allergies Allergies/Adverse Reactions: Allergies Allergy/AdvReac Type Severity Reaction Status Date / Time No Known Allergies Allergy Verified 05/14/19 17:07 - Home Medications Home Medications: Ambulatory Orders Atorvastatin Ca [Lipitor] 80 mg PO HS 07/10/17 Lisinopril [Prinivil] 10 mg PO DAILY 11/10/17 metFORMIN HCL [Metformin ER Osmotic] 500 mg PO BID 11/22/17 Aspirin 81 mg PO DAILY 05/14/19 Clopidogrel Bisulfate [Plavix -] 75 mg PO HS 05/14/19 Gabapentin 200 mg PO BID 05/14/19 Amlodipine Besylate [Norvasc -] 5 mg PO BID #60 tablet 05/17/19 Clopidogrel Bisulfate [Plavix -] 75 mg PO DAILY #30 tablet 05/17/19 Labetalol HCl [Normodyne -] 400 mg PO BID #120 tablet 05/17/19 cloNIDine HCL [Catapres -] 0.1 mg PO BID #60 tablet 05/17/19 Family Medical History Family History: Unable to Obtain Review of Systems - Review of Systems Constitutional: reports: No Symptoms Eyes: reports: Blurred Vision, Double Vision, Recent Change in Vision HENT: reports: No Symptoms Neck: reports: No Symptoms Cardiovascular: reports: No Symptoms Respiratory: reports: No Symptoms Gastrointestinal: reports: No Symptoms Genitourinary: reports: No Symptoms Breasts: reports: No Symptoms Reported Musculoskeletal: reports: No Symptoms Integumentary: reports: No Symptoms Neurological: reports: Dizziness, Pre-Existing Deficit Endocrine: reports: No Symptoms Hematology/Lymphatic: reports: No Symptoms Psychiatric: reports: No Symptoms Pain Intensity: 0 Physical Examination Vital Signs: Vital Signs Temperature Pulse Rate 75 05/14/19 22:01 Respiratory Rate 18 05/14/19 22:01 Blood Pressure 193/105 H 05/14/19 23:21 O2 Sat by Pulse Oximetry (%) 99 05/14/19 22:01 Constitutional: Yes: No Distress, Calm, Thin Eyes: Yes: Conjunctiva Clear, PERRL, Other (left eye deficit-adduction and downward) HENT: Yes: WNL, Atraumatic, Normocephalic Neck: Yes: WNL, Supple, Trachea Midline Cardiovascular: Yes: WNL, Regular Rate and Rhythm, S1, S2 Respiratory: Yes: WNL, Regular, CTA Bilaterally Gastrointestinal: Yes: WNL, Normal Bowel Sounds, Soft ...Rectal Exam: Yes: WNL Renal/: Yes: WNL Breast(s): Yes: WNL Musculoskeletal: Yes: WNL Extremities: Yes: WNL Edema: No Peripheral Pulses WNL: Yes Integumentary: Yes: WNL Neurological: Yes: Alert, Oriented, Pre-Existing Deficit ...Motor Strength: LUE (3/5), LLE (3/5), RUE (5/5), RLE (5/5) Psychiatric: Yes: WNL, Alert, Oriented Labs: CBC, BMP 05/14/19 17:40 05/14/19 17:40 Imaging - Results Chest X-ray: Image Reviewed Cat Scan: Report Reviewed, Image Reviewed MRI: Report Reviewed, Image Reviewed EKG: Image Reviewed Problem List - Problems (1) Cerebrovascular accident (CVA) Code(s): I63.9 - CEREBRAL INFARCTION, UNSPECIFIED (2) HTN (hypertension) Code(s): I10 - ESSENTIAL (PRIMARY) HYPERTENSION (3) Diabetes Code(s): E11.9 - TYPE 2 DIABETES MELLITUS WITHOUT COMPLICATIONS Qualifiers: Diabetes mellitus type: other specified (including ELYSE) Diabetes mellitus usp insulin use: without usp use Diabetes mellitus complication status: with hyperglycemia Qualified Code(s): E13.65 - Other specified diabetes mellitus with hyperglycemia (4) HLD (hyperlipidemia) Code(s): E78.5 - HYPERLIPIDEMIA, UNSPECIFIED Assessment/Plan This is a 54 y/o man admitted to Telemetry for Dizziness, Visual Changes r/o Stroke, Hypertensive Urgency for further evaluation of their emergent condition. Plan: # Dizziness r/o Stroke NIHSS- 1 Continue cardiac monitoring Appreciate Neurology consult- aware per ED resident Head CT report- mild-moderate volume loss and mild periventricular dilatation. no mass lesion, gross acute infarct or intracranial hemorrhage Brain MRI/MRA report- there is no evidence of aneurysm, vascular malformation Brain MRI report- foci of increased signal intensity noted in the midbrain Neurochecks Maintain BP parameters systolic 180's per ED resident (per Neurologist) Fall precautions NPO Gentle IVF Swallow Eval HOB elevated 30-45 degrees Continue home meds when verified #Hypertensive Urgency Continue cardiac monitoring Labetolol IV given in ED with some improvement Continue Labetolol Appreciate Cardiology consult Monitor renal function EKG reviewed- NSR, TWI in V3, V4 BP parameters SBP 180's, per neurology # Hyperlipidemia stable Continue Lipitor Monitor LFTs # Diabetes Mellitus sub optimal BGMs ISS FEN Gentle IVF Replete lytes prn NPO DVT ppx OOB SCDs Hold AC- pending Brain MRI Dispo: Requires Inpatient Care Visit type - Emergency Visit Emergency Visit: Yes ED Registration Date: 05/14/19 Care time: The patient presented to the Emergency Department on the above date and was hospitalized for further evaluation of their emergent condition. - New Patient This patient is new to me today: Yes Date on this admission: 05/14/19 - Critical Care Critical Care patient: No
[2019-05-15 06:55] LABS: BASO % 0.6 % (0-2.0); EOS % 2.4 % (0-4.5); HEMOGLOBIN 9.7 GM/dL (11.7-16.9); LYMPH % 21.3 % (8-40); MCH 28.4 pg (25.7-33.7); MCHC 33.5 g/dl (32.0-35.9); MEAN CELL VOLUME 84.5 fl (80-96); MEAN PLT VOLUME 8.6 fl (7.5-11.1); MONO % 5.4 % (3.8-10.2); NEUT % 70.3 % (42.8-82.8); PLATELET COUNT 251 K/MM3 (134-434); RBC 3.43 M/mm3 (4.00-5.60); RDW 13.8 % (11.9-15.9)
[2019-05-15 07:18] LABS: BLOOD UREA NITROGEN 20.3 mg/dL (7-18); CALCIUM 8.3 mg/dL (8.5-10.1); CREATININE 1.3 mg/dL (0.55-1.3); POTASSIUM 3.7 mmol/L (3.5-5.1)
--- NOTE | 2019-05-15 09:04 | CON.NEURO ---
Consult - Past Medical History Cardio/Vascular: Yes: HTN, Hyperlipdemia Endocrine: Yes: Diabetes Mellitus Additional Medical History: perirectal abscess 06/2017 - Alcohol/Substance Use Hx Alcohol Use: No - Smoking History Smoking history: Current every day smoker Have you smoked in the past 12 months: Yes Aproximately how many cigarettes per day: 10 - Social History Usual Living Arrangement: With Spouse ADL: Independent History of Recent Travel: No Home Medications - Allergies Allergies/Adverse Reactions: Allergies Allergy/AdvReac Type Severity Reaction Status Date / Time No Known Allergies Allergy Verified 05/14/19 17:07 - Home Medications Home Medications: Ambulatory Orders Atorvastatin Ca [Lipitor] 80 mg PO HS 07/10/17 Lisinopril [Prinivil] 10 mg PO DAILY 11/10/17 Amlodipine Besylate 5 mg PO HS 11/22/17 metFORMIN HCL [Metformin ER Osmotic] 500 mg PO BID 11/22/17 Aspirin 81 mg PO DAILY 05/14/19 Clopidogrel Bisulfate [Plavix -] 75 mg PO HS 05/14/19 Gabapentin 200 mg PO BID 05/14/19 Labetalol HCl [Normodyne -] 200 mg PO BID 05/14/19 Physical Exam-Neuro Vital Signs: Vital Signs Temperature 98.4 F 05/15/19 06:00 Pulse Rate 74 05/15/19 06:00 Respiratory Rate 17 05/15/19 06:00 Blood Pressure 192/99 H 05/15/19 06:00 O2 Sat by Pulse Oximetry (%) 99 05/14/19 22:01 Labs: CBC, BMP 05/15/19 05:32 05/15/19 05:32 INR, PTT INR 1.13 (0.83-1.09) H 05/14/19 17:40 Assessment/Plan cc left eye restriction of movement and double vision for one day HPI 54 year old male history of htn, stroke came with dizziness and double vision. patient saw optho and suspected third nerve palsy, there is no ptosis no headache. Patient has normal ct head and mri of brain and mra of brain pending He was taking apirin at home , but no statin. PMH as above Allergies/Adverse Reactions: Allergies Allergy/AdvReac Type Severity Reaction Status Date / Time No Known Allergies Allergy Verified 05/14/19 17:07 Home Medications: Atorvastatin Ca [Lipitor] 80 mg PO HS 07/10/17 Lisinopril [Prinivil] 10 mg PO DAILY 11/10/17 Amlodipine Besylate 5 mg PO HS 11/22/17 metFORMIN HCL [Metformin ER Osmotic] 500 mg PO BID 11/22/17 Aspirin 81 mg PO DAILY 05/14/19 Clopidogrel Bisulfate [Plavix -] 75 mg PO HS 05/14/19 Gabapentin 200 mg PO BID 05/14/19 Labetalol HCl [Normodyne -] 200 mg PO BID 05/14/19 ROS,FH,SH reviewed in chart NEUROLOGICAL EXAMINATION Alert oriented x 3 , neck is supple vss left eye deficit in adduction of left eye and downward movement pupils reactive moving all ext no pronator drift ct head unremarkable carotid ultrasound is pending mri of brain and mra is pending Assessment/Plan Left third nerve palsy with pupils sparing, suspect due to ischemia, symptoms are getting better Plan: tight bp and dm control - continue apsirin, plavix and statin as before - carotid ultrasound - patient would require optho outpatient follow up Thanking you so much Thom Clancy MD
[2019-05-15] MEDS ORDERED: LISINOPRIL 20 MG TABLET (FP) PO SCH (10:00)
[2019-05-15] MEDS ORDERED: LABETALOL HCL 200 MG TABLET (FP) PO SCH (10:00)
[2019-05-15] MEDS ORDERED: LISINOPRIL 5 MG TABLET (FP) ONE (10:27)
[2019-05-15] MEDS ORDERED: CLOPIDOGREL BISULFATE 75 MG TABLET (FP) ONE (10:27)
[2019-05-15] MEDS ORDERED: LABETALOL HCL 100 MG TABLET (FP) ONE (10:27)
[2019-05-15] MEDS: CLOPIDOGREL BISULFATE 75 MG TABLET (FP) PO SCH (10:29)
--- NOTE | 2019-05-15 10:37 | PN ---
Progress Note, Physician Chief Complaint: Cranial Nerve 3 Palsy HTN CVA History of Present Illness: Previous notes and events reviewed awake and alert NAD denies double vision currently denies headache, chest pain, SOB, dizziness - Current Medication List Current Medications: Active Medications Amlodipine Besylate (Norvasc -) 5 mg PO HS [facility] Atorvastatin Calcium (Lipitor -) 80 mg PO HS [facility] Clopidogrel Bisulfate (Plavix -) 75 mg PO DAILY [facility] Last Admin: 05/15/19 10:29 Dose: 75 mg Sodium Chloride (Normal Saline -) 1,000 mls @ 42 mls/hr IV ASDIR [facility] Last Admin: 05/14/19 18:23 Dose: 42 mls/hr Labetalol HCl (Normodyne -) 200 mg PO BID [facility] Last Admin: 05/15/19 10:29 Dose: 200 mg Lisinopril (Prinivil) 10 mg PO DAILY [facility] Last Admin: 05/15/19 10:29 Dose: 10 mg - Objective Vital Signs: Vital Signs Temperature 98.4 F 05/15/19 06:00 Pulse Rate 74 05/15/19 06:00 Respiratory Rate 17 05/15/19 06:00 Blood Pressure 192/99 H 05/15/19 06:00 O2 Sat by Pulse Oximetry (%) 99 05/14/19 22:01 Constitutional: Yes: No Distress, Calm Eyes: Yes: Conjunctiva Clear HENT: Yes: Atraumatic Cardiovascular: Yes: Regular Rate and Rhythm Respiratory: Yes: Regular, CTA Bilaterally Gastrointestinal: Yes: Normal Bowel Sounds, Soft Musculoskeletal: Yes: WNL Extremities: Yes: WNL Edema: No Neurological: Yes: Alert, Oriented, Other Psychiatric: Yes: Alert, Oriented Labs: CBC, BMP 05/15/19 05:32 05/15/19 05:32 INR, PTT INR 1.13 (0.83-1.09) H 05/14/19 17:40 Problem List - Problems (1) Cerebrovascular accident (CVA) Assessment/Plan: -Neurology and Cardiology consult -Head CT scan shows mild to moderate volume loss and mild periventricular chornic microvascular ischemic disease changes with CT evidence of acute intrancranial pathology -pending Brain MRI and with MRA -Carotid US done results pending -neuro checks q4h -tele monitoring -fall precaution -Plavix -Atorvastatin Code(s): I63.9 - CEREBRAL INFARCTION, UNSPECIFIED (2) Cranial nerve III palsy Assessment/Plan: -Neurology and Cardiology consult -Head CT scan shows mild to moderate volume loss and mild periventricular chornic microvascular ischemic disease changes with CT evidence of acute intrancranial pathology -pending Brain MRI and with MRA -Carotid US done results pending -neuro checks q4h -tele monitoring -fall precaution -will need optho follow up as outpatient Code(s): H49.00 - THIRD [OCULOMOTOR] NERVE PALSY, UNSPECIFIED EYE (3) HTN (hypertension) Assessment/Plan: -Cardiology consult -Labetolol, Lisinopril, Amlodipine -low Na diet -tele monitoring Code(s): I10 - ESSENTIAL (PRIMARY) HYPERTENSION
--- NOTE | 2019-05-15 10:45 | EKG ---
Test Reason : Blood Pressure : / mmHG Vent. Rate : 079 BPM Atrial Rate : 079 BPM P-R Int : 178 ms QRS Dur : 106 ms QT Int : 398 ms P-R-T Axes : 065 063 088 degrees QTc Int : 456 ms NORMAL SINUS RHYTHM POSSIBLE LEFT ATRIAL ENLARGEMENT BORDERLINE ECG WHEN COMPARED WITH ECG OF 10-NOV-2017 09:37, T WAVE INVERSION NOW EVIDENT IN ANTERIOR LEADS Confirmed by ANKUSH GONZALEZ, CARON ([id number]) on 05/15/2019 10:45:12 AM Referred By: Confirmed By:CARON LECHUGA MD
[2019-05-15] MEDS ORDERED: cloNIDine HCL 0.1 MG TABLET PO ONE (13:02)
[2019-05-15] MEDS ORDERED: cloNIDine HCL 0.1 MG TABLET ONE (13:06)
[2019-05-15] MEDS ORDERED: amLODIPine BESYLATE 5 MG TABLET (FP) PO SCH ×2 (14:45→22:00)
[2019-05-15] MEDS ORDERED: amLODIPine BESYLATE 5 MG TABLET (FP) ONE (14:54)
--- NOTE | 2019-05-15 15:09 | CON.CARD ---
Consult Consult Specialty:: cardiology Reason for Consultation:: Hypertension. - History of Present Illness History of Present Illness: 54 M with ho controlled HTN was admitted with blurry vision and thought to have 3rd nerve palsy. MRI showed acute stroke. He has BP 200/100mmHg but no chest pain, dyspnea, edema, SOB. Symptoms have resolved. No prior cardiac history. He recived Clonidine 0.1 x 1 and Prinivil, labetalol. - History Source History Provided By: Patient Limitations to Obtaining History: No Limitations - Past Medical History Cardio/Vascular: Yes: HTN, Hyperlipdemia Endocrine: Yes: Diabetes Mellitus Additional Medical History: perirectal abscess 06/2017 - Alcohol/Substance Use Hx Alcohol Use: No - Smoking History Smoking history: Current every day smoker Have you smoked in the past 12 months: Yes Aproximately how many cigarettes per day: 10 - Social History Usual Living Arrangement: With Spouse ADL: Independent History of Recent Travel: No Home Medications - Allergies Allergies/Adverse Reactions: Allergies Allergy/AdvReac Type Severity Reaction Status Date / Time No Known Allergies Allergy Verified 05/14/19 17:07 - Home Medications Home Medications: Ambulatory Orders Atorvastatin Ca [Lipitor] 80 mg PO HS 07/10/17 Lisinopril [Prinivil] 10 mg PO DAILY 11/10/17 Amlodipine Besylate 5 mg PO HS 11/22/17 metFORMIN HCL [Metformin ER Osmotic] 500 mg PO BID 11/22/17 Aspirin 81 mg PO DAILY 05/14/19 Clopidogrel Bisulfate [Plavix -] 75 mg PO HS 05/14/19 Gabapentin 200 mg PO BID 05/14/19 Labetalol HCl [Normodyne -] 200 mg PO BID 05/14/19 Review of Systems - Review of Systems Constitutional: reports: No Symptoms Eyes: reports: No Symptoms HENT: reports: No Symptoms Neck: reports: No Symptoms Cardiovascular: reports: No Symptoms Respiratory: reports: No Symptoms Gastrointestinal: reports: No Symptoms Genitourinary: reports: No Symptoms Breasts: reports: No Symptoms Reported Vital Signs: Vital Signs Temperature 98.4 F 05/15/19 06:00 Pulse Rate 74 05/15/19 06:00 Respiratory Rate 17 05/15/19 06:00 Blood Pressure 192/99 H 05/15/19 06:00 O2 Sat by Pulse Oximetry (%) 99 05/14/19 22:01 Constitutional: Yes: Well Nourished, No Distress Eyes: Yes: Conjunctiva Clear HENT: Yes: Atraumatic, Normocephalic Neck: Yes: Supple, Trachea Midline Respiratory: Yes: Regular, CTA Bilaterally Gastrointestinal: Yes: Normal Bowel Sounds, Soft Cardiovascular: Yes: Regular Rate and Rhythm JVD: No Carotid Bruit: No PMI: Non-Displaced Heart Sounds: Yes: S1, S2 Murmur: No: Systolic Murmur, Diastolic Murmur Edema: No Peripheral Pulses WNL: Yes - Other Data Labs, Other Data: CBC, BMP 05/15/19 05:32 05/15/19 05:32 INR, PTT INR 1.13 (0.83-1.09) H 05/14/19 17:40 Troponin, BNP 05/14/19 17:40 Troponin I < 0.02 Troponin, BNP 05/14/19 17:40 Troponin I < 0.[address] T changes. Assessment/Plan Admitted with transient blurrec vision. MRI with recent stroke Severe HTN Rec: Echo Give amlodipine 5mg x 1 now raise Labetalol 400mg bid. Increase lisinopril 20mg qd. Amlodipine 5mg daily. TFT
--- NOTE | 2019-05-15 15:10 | CONSULT ---
Consultation: REQUESTING PROVIDER: Dr. Griffin CONSULT REQUEST: We have been asked to medically evaluate this patient for ICU management. HISTORY OF PRESENT ILLNESS: 54M PMH HTN, CVA (2 years ago, left sided deficits), DM who presented with dizziness and dipoplia for 1 day. Patient did not have a triggering event for his vision issues, and patient noted that he was stumbling and tripping when his vision problems occurred. He went to see his agriculture science teacher who recommended he come to the ED. He was seen in the ED and noted to have medial rectus palsy of the left eye. Patient had Brain MRI and MRI/MRA completed which showed subacute infarct in the right posterior frontal centrum semiovale. Neurology has seen patient and believes it was due to ischemia. Today patient feels better has no complaints of double vision or dizziness. He says he is adherent to his blood pressure medications. He endorses a significant smoking history, has recently cut down to 5 cigarettes a day. He denies chest pain, shortness of breath, abdominal pain, and any new paresthesias or weakness. REVIEW OF SYSTEMS: CONSTITUTIONAL: Absent: fever, chills, diaphoresis, generalized weakness, malaise, loss of appetite, weight change HEENT: Absent: rhinorrhea, nasal congestion, throat pain, throat swelling, difficulty swallowing, mouth swelling, ear pain, eye pain, visual changes CARDIOVASCULAR: Absent: chest pain, syncope, palpitations, irregular heart rate, lightheadedness, peripheral edema RESPIRATORY: Absent: cough, shortness of breath, dyspnea with exertion, orthopnea, wheezing, stridor, hemoptysis GASTROINTESTINAL: Absent: abdominal pain, abdominal distension, nausea, vomiting, diarrhea, constipation, melena, hematochezia GENITOURINARY: Absent: dysuria, frequency, urgency, hesitancy, hematuria, flank pain, genital pain MUSCULOSKELETAL: Absent: myalgia, arthralgia, joint swelling, back pain, neck pain SKIN: Absent: rash, itching, pallor HEMATOLOGIC/IMMUNOLOGIC: Absent: easy bleeding, easy bruising, lymphadenopathy, frequent infections ENDOCRINE: Absent: unexplained weight gain, unexplained weight loss, heat intolerance, cold intolerance NEUROLOGIC: Absent: headache, focal weakness or paresthesias, dizziness, unsteady gait, seizure, mental status changes, bladder or bowel incontinence PSYCHIATRIC: Absent: anxiety, depression, suicidal or homicidal ideation, hallucinations. PHYSICAL EXAMINATION Vital Signs - 24 hr 01/21/20 01/21/20 01/21/20 17:04 20:15 20:30 Temperature Pulse Rate 80 Pulse Rate [ 78 75 Apical] Respiratory 18 18 Rate Blood Pressure 209/109 H Blood Pressure 221/118 H 216/111 H [Left Arm] O2 Sat by Pulse 100 97 Oximetry (%) 05/14/19 05/14/19 05/14/19 21:17 21:44 22:01 Temperature Pulse Rate Pulse Rate [ 75 72 75 Apical] Respiratory 18 18 Rate Blood Pressure Blood Pressure 209/108 H 214/112 H 211/105 H [Left Arm] O2 Sat by Pulse 98 99 Oximetry (%) 05/14/19 05/14/19 05/15/19 23:21 23:59 00:21 Temperature Pulse Rate Pulse Rate [ Apical] Respiratory Rate Blood Pressure Blood Pressure 193/105 H 187/102 H 175/90 H [Left Arm] O2 Sat by Pulse Oximetry (%) 05/15/19 06:00 Temperature 98.4 F Pulse Rate 74 Pulse Rate [ Apical] Respiratory 17 Rate Blood Pressure 192/99 H Blood Pressure [Left Arm] O2 Sat by Pulse Oximetry (%) GENERAL: Awake, alert, and fully oriented, in no acute distress. HEAD: Normal with no signs of trauma. EYES: Right pupil reactive to light, left pupil is reactive to light indirectly. EARS, NOSE, THROAT: Ears normal, nares patent, oropharynx clear without exudates. Moist mucous membranes. NECK: Normal range of motion, supple without lymphadenopathy, JVD, or masses. LUNGS: Breath sounds equal, clear to auscultation bilaterally. No wheezes, and no crackles. No accessory muscle use. HEART: Regular rate and rhythm, normal S1 and S2 without murmur, rub or gallop. ABDOMEN: Soft, nontender, not distended, normoactive bowel sounds, no guarding, no rebound, no masses. MUSCULOSKELETAL: Normal range of motion at all joints. No bony deformities or tenderness UPPER EXTREMITIES: 2+ pulses, warm, well-perfused. No cyanosis. No clubbing. Cap refill <2 seconds. No peripheral edema. LOWER EXTREMITIES: 2+ pulses, warm, well-perfused. No calf tenderness. No peripheral edema. NEUROLOGICAL: Medial rectus palsy in the left eye. All other cranial nerve functions are intact. Sensation grossly intact. Speech is slurred, unclear if changed from baseline due to prior strokes. 5/5 strength in all extremities. Reflexes intact. PSYCHIATRIC: Cooperative. Good eye contact. Appropriate mood and affect. SKIN: Warm, dry, normal turgor, no rashes or lesions noted. Laboratory Results - last 24 hr 05/14/19 05/14/19 05/14/19 17:40 17:40 17:40 WBC 5.7 RBC 3.62 L Hgb 10.3 L Hct 30.6 L D MCV 84.5 MCH 28.3 MCHC 33.5 RDW 13.4 Plt Count 274 D MPV 8.5 D Absolute Neuts (auto) 4.4 Neutrophils % 76.7 D Lymphocytes % 15.1 D Monocytes % 5.0 Eosinophils % 2.8 Basophils % 0.4 Nucleated RBC % 1 H PT with INR 13.40 H INR 1.13 H PTT (Actin FS) 39.5 H Sodium Potassium Chloride Carbon Dioxide Anion Gap BUN Creatinine Est GFR (CKD-EPI)AfAm Est GFR (CKD-EPI)NonAf POC Glucometer Random Glucose Calcium Total Bilirubin AST ALT Alkaline Phosphatase Creatine Kinase 812 H Creatine Kinase Index 0.6 CK-MB (CK-2) 5.2 H Troponin I < 0.02 Total Protein Albumin Triglycerides Cholesterol Total LDL Cholesterol HDL Cholesterol Urine Color Urine Appearance Urine pH Ur Specific [place] Urine Protein Urine Glucose (UA) Urine Ketones Urine Blood Urine Nitrite Urine Bilirubin Urine Urobilinogen Ur Leukocyte Esterase Urine WBC (Auto) Urine RBC (Auto) Urine Casts (Auto) U Epithel Cells (Auto) U Sm Round Cell (Auto) Urine Bacteria (Auto) Blood Type Antibody Screen 05/14/19 05/14/19 05/14/19 17:40 17:45 17:57 WBC RBC Hgb Hct MCV MCH MCHC RDW Plt Count MPV Absolute Neuts (auto) Neutrophils % Lymphocytes % Monocytes % Eosinophils % Basophils % Nucleated RBC % PT with INR INR PTT (Actin FS) Sodium 144 Potassium 4.0 Chloride 111 H Carbon Dioxide 29 Anion Gap 3 L BUN 20.6 H Creatinine 1.3 Est GFR (CKD-EPI)AfAm 71.69 Est GFR (CKD-EPI)NonAf 61.86 POC Glucometer Random Glucose 228 H Calcium 8.3 L Total Bilirubin 0.2 AST 19 ALT 24 Alkaline Phosphatase 113 Creatine Kinase Creatine Kinase Index CK-MB (CK-2) Troponin I Total Protein 5.6 L Albumin 2.8 L Triglycerides 82 Cholesterol 209 H Total LDL Cholesterol 88 HDL Cholesterol 104 H Urine Color Yellow Urine Appearance Clear Urine pH 7.5 D Ur Specific [place] 1.017 Urine Protein 4+ H Urine Glucose (UA) 2+ H Urine Ketones Negative Urine Blood 2+ H Urine Nitrite Negative Urine Bilirubin Negative Urine Urobilinogen 1.0 Ur Leukocyte Esterase Negative Urine WBC (Auto) 4 Urine RBC (Auto) 14 Urine Casts (Auto) 1 U Epithel Cells (Auto) 6.6 U Sm Round Cell (Auto) None Urine Bacteria (Auto) 88.8 Blood Type A POSITIVE Antibody Screen Negative 05/15/19 05/15/19 05/15/19 05:32 05:32 06:10 WBC 7.0 RBC 3.43 L Hgb 9.7 L Hct 29.0 L MCV 84.5 MCH 28.4 MCHC 33.5 RDW 13.8 Plt Count 251 MPV 8.6 Absolute Neuts (auto) 4.9 Neutrophils % 70.3 Lymphocytes % 21.3 D Monocytes % 5.4 Eosinophils % 2.4 Basophils % 0.6 Nucleated RBC % 0 PT with INR INR PTT (Actin FS) Sodium 145 Potassium 3.7 Chloride 114 H Carbon Dioxide 27 Anion Gap 5 L BUN 20.3 H Creatinine 1.3 Est GFR (CKD-EPI)AfAm 71.69 Est GFR (CKD-EPI)NonAf 61.86 POC Glucometer 155 Random Glucose 155 H Calcium 8.3 L Total Bilirubin AST ALT Alkaline Phosphatase Creatine Kinase Creatine Kinase Index CK-MB (CK-2) Troponin I Total Protein Albumin Triglycerides Cholesterol Total LDL Cholesterol HDL Cholesterol Urine Color Urine Appearance Urine pH Ur Specific [place] Urine Protein Urine Glucose (UA) Urine Ketones Urine Blood Urine Nitrite Urine Bilirubin Urine Urobilinogen Ur Leukocyte Esterase Urine WBC (Auto) Urine RBC (Auto) Urine Casts (Auto) U Epithel Cells (Auto) U Sm Round Cell (Auto) Urine Bacteria (Auto) Blood Type Antibody Screen Active Medications Generic Name Dose Route Start Last Admin Trade Name Freq PRN Reason Stop Dose Admin Atorvastatin Calcium 80 mg 05/15/19 22:00 Lipitor - PO HS [facility] Clopidogrel Bisulfate 75 mg 05/15/19 10:00 05/15/19 10:29 Plavix - PO 75 mg DAILY [facility] Administration Sodium Chloride 1,000 mls @ 42 mls/hr 05/14/19 17:15 05/14/19 18:23 Normal Saline - IV 42 mls/hr ASDIR [facility] Administration Labetalol HCl 200 mg 05/15/19 10:00 05/15/19 10:29 Normodyne - PO 200 mg BID [facility] Administration Lisinopril 10 mg 05/15/19 10:00 05/15/19 10:29 Prinivil PO 10 mg DAILY [facility] Administration ASSESSMENT/PLAN: 54M PMH HTN, DM, Prior CVA who was admitted for dizziness and left third nerve palsy likely secondary to ischemia. Neuro -Pt is currently AAOx3 -Left third nerve palsy present, pupil sparing. -Brain MRI shows recent subacute infarct in right posterior frontal centrum semiovale. -Brain MRA shows no changes to flow -Continue monitoring -Neurochecks -Carotid doppler is negative -Aspirin -Plavix -Statin -Continue BP control: 220/110 until 6pm tonight. Then 180/90 goal. Cardiovascular -Hx of HTN -Continue Labetolol and Lisinopril -Add on amlodipine if patient BP > 180 in the evening -Consider labetolol pushes if BP remains above 180 in the evening -F/U echo Pulmonary -Stable, maintaining >99% sat GI -No issues, continue to monitor Endo Hx of Dm -continue following blood sugars -Consider ACHS and sliding scale insulin Renal -No issues continue trending electrolytes and monitoring urine output -NS @ 42 ml/hr F: NS 42 ml/hr E: Monitor BMP N: NPO for now Lines: Peripheral lines DVT: No A/C for now. SCDs Dispo: Continue Telemetry monitoring, will not require ICU monitoring. Reconsult if HD instability or requires central line and intubation. Visit type - Emergency Visit Emergency Visit: Yes ED Registration Date: 05/14/19 Care time: The patient presented to the Emergency Department on the above date and was hospitalized for further evaluation of their emergent condition. - New Patient This patient is new to me today: Yes Date on this admission: 05/15/19 - Critical Care Critical Care patient: No ATTENDING PHYSICIAN STATEMENT I saw and evaluated the patient. I reviewed the resident's note and discussed the case with the resident. I agree with the resident's findings and plan as documented. SUBJECTIVE: OBJECTIVE: ASSESSMENT AND PLAN:
--- NOTE | 2019-05-15 15:44 | PN ---
Teaching Attending Note Name of Resident: Kenny Cage ATTENDING PHYSICIAN STATEMENT I saw and evaluated the patient. I reviewed the resident's note and discussed the case with the resident. I agree with the resident's findings and plan as documented. SUBJECTIVE: Pt seen and examined in the ER. Vision improved but still some field deficits. OBJECTIVE: Vital Signs Period Temp Pulse Resp BP Sys/Hanson Pulse Ox Last 24 Hr 98.4 F 72-80 17-18 160-221/90-118 97-100 Intake & Output 05/12/19 05/13/19 05/14/19 05/15/19 23:59 23:59 23:59 23:59 Weight 70.307 kg Gen: NAD at rest Heart: RRR Lung: decreased breath sounds at the bases Abd: soft, nontender Ext: no edema CBC, BMP 05/15/19 05:32 05/15/19 05:32 Active Medications Atorvastatin Calcium (Lipitor -) 80 mg PO [facility] Clopidogrel Bisulfate (Plavix -) 75 mg PO DAILY [facility] Last Admin: 05/15/19 10:29 Dose: 75 mg Sodium Chloride (Normal Saline -) 1,000 mls @ 42 mls/hr IV ASDIR [facility] Last Admin: 05/14/19 18:23 Dose: 42 mls/hr Labetalol HCl (Normodyne -) 200 mg PO BID [facility] Last Admin: 05/15/19 10:29 Dose: 200 mg Lisinopril (Prinivil) 10 mg PO DAILY [facility] Last Admin: 05/15/19 10:29 Dose: 10 mg ASSESSMENT AND PLAN: Acute CVA HTN DM h/o CVA Anemia - neuro checks - allow permissive HTN - ASA, statin - echocardiogram - DVT prophylaxis - does not require ICU monitoring at this time, can monitor on telemetry - please call if clinical status changes
[2019-05-15 17:28] VITALS: BMI 22.3
[2019-05-15] MEDS ORDERED: LABETALOL HCL 200 MG TABLET (FP) PO ONE (18:56)
[2019-05-15] MEDS: SODIUM CHLORIDE 1,000 ML IV SCH (19:30)
[2019-05-15] MEDS: ATORVASTATIN CA 80 MG TABLET (FP) PO SCH (22:35)
[2019-05-15] MEDS: LABETALOL HCL 200 MG TABLET (FP) PO SCH (22:35)
--- NOTE | 2019-05-16 08:24 | PN ---
Progress Note, Physician - Current Medication List Current Medications: Active Medications Amlodipine Besylate (Norvasc -) 5 mg PO DAILY [facility] Atorvastatin Calcium (Lipitor -) 80 mg PO HS [facility] Last Admin: 05/15/19 22:35 Dose: 80 mg Clopidogrel Bisulfate (Plavix -) 75 mg PO DAILY [facility] Last Admin: 05/15/19 10:29 Dose: 75 mg Labetalol HCl (Normodyne -) 400 mg PO BID [facility] Last Admin: 05/15/19 22:35 Dose: 400 mg Lisinopril (Prinivil) 20 mg PO DAILY [facility] - Objective Vital Signs: Vital Signs Temperature 97.7 F 05/16/19 06:00 Pulse Rate 61 05/16/19 06:00 Respiratory Rate 17 05/16/19 06:00 Blood Pressure 176/108 H 05/16/19 06:00 O2 Sat by Pulse Oximetry (%) 98 05/15/19 21:00 Cardiovascular: Yes: S1, S2 Respiratory: Yes: Regular, CTA Bilaterally Gastrointestinal: Yes: Normal Bowel Sounds, Soft Labs: CBC, BMP 05/15/19 05:32 05/15/19 05:32 INR, PTT INR 1.13 (0.83-1.09) H 05/14/19 17:40 Problem List - Problems (1) Cerebrovascular accident (CVA) Assessment/Plan: -Neurology and Cardiology consult -Head CT scan shows mild to moderate volume loss and mild periventricular chornic microvascular ischemic disease changes with CT evidence of acute intrancranial pathology -Brain MRI and with MRA--mall ischemic lesion on right bunch radiata and mra of brain unremarkable -Carotid US done results pending -neuro checks q4h -tele monitoring -fall precaution -Plavix -Atorvastatin -BP control Code(s): I63.9 - CEREBRAL INFARCTION, UNSPECIFIED (2) HTN (hypertension) Assessment/Plan: -Cardiology consult -Labetolol, Lisinopril, Amlodipine--add clonidine -low Na diet -tele monitoring Code(s): I10 - ESSENTIAL (PRIMARY) HYPERTENSION (3) Diabetes Code(s): E11.9 - TYPE 2 DIABETES MELLITUS WITHOUT COMPLICATIONS Qualifiers: Diabetes mellitus type: other specified (including ELYSE) 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 insulin use: without skilled nursing use Diabetes mellitus complication status: with hyperglycemia Qualified Code(s): E13.65 - Other specified diabetes mellitus with hyperglycemia (4) Cranial nerve III palsy Assessment/Plan: -Neurology and Cardiology consult noted -Head CT scan shows mild to moderate volume loss and mild periventricular chornic microvascular ischemic disease changes with CT evidence of acute intrancranial pathology -Brain MRI and with MRA--mall ischemic lesion on right bunch radiata and mra of brain unremarkable -Carotid US done results no sig stenosis -neuro checks q4h -tele monitoring -fall precaution -will need optho follow up as outpatient Code(s): H49.00 - THIRD [OCULOMOTOR] NERVE PALSY, UNSPECIFIED EYE
[2019-05-16] MEDS: CLOPIDOGREL BISULFATE 75 MG TABLET (FP) PO SCH ×2 (08:46→09:14)
[2019-05-16] MEDS: LABETALOL HCL 200 MG TABLET (FP) PO SCH ×3 (08:46→21:30)
[2019-05-16] MEDS: cloNIDine HCL 0.1 MG TABLET PO SCH ×3 (08:46→21:30)
[2019-05-16] MEDS: LISINOPRIL 20 MG TABLET (FP) PO SCH ×2 (08:47→09:14)
[2019-05-16] MEDS: amLODIPine BESYLATE 5 MG TABLET (FP) PO SCH ×2 (08:47→09:14)
--- NOTE | 2019-05-16 09:02 | PN ---
Progress Note (short form) - Note Progress Note: cc left eye restriction of movement and double vision for one day HPI 54 year old male history of htn, stroke came with dizziness and double vision. patient saw optho and suspected third nerve palsy, there is no ptosis no headache. Patient has normal ct head and mri of brain and mra of brain pending He was taking apirin at home , but no statin. patient is feeling better and double vision has improved. mri of brain and carotid ultrasound report appreciated NEUROLOGICAL EXAMINATION Alert oriented x 3 , neck is supple vss left eye deficit in adduction of left eye and downward movement pupils reactive moving all ext no pronator drift ct head unremarkable carotid ultrasound is normal mri of brain showed small ischemic lesion on right bunch radiata and mra of brain unremarkable Assessment/Plan Left third nerve palsy with pupils sparing, suspect due to ischemia, symptoms are getting better, mri of brain showed a incidental ischemic lesion and there is no aneurysm on mra Plan: tight bp and dm control - continue plavix and statin - carotid ultrasound report appreciated - patient can be discharged from neurological point of view. Thanking you so much Thom Clancy MD
--- NOTE | 2019-05-16 14:32 | ECHO ---
Name: MALENAFELICE Exam:Adult Echocardiogram Study Date: 05/16/2019 11:42 AM Age: 54 yrs Height: 66 in Weight: 155 lb BSA: 1.8 m2 MMode/2D Measurements & Calculations IVSd: 0.93 cm Ao root diam: 2.7 cm LVIDd: 4.2 cm LA dimension: 2.9 cm LVIDs: 3.0 cm ACS: 1.7 cm LVPWd: 1.6 cm EDV(Teich): 77.3 ml LVOT diam: 1.9 cm ESV(Teich): 34.8 ml RV S Ronak: 12.4 cm/sec Doppler Measurements & Calculations MV E max ronak: 68.6 cm/sec Ao V2 max: 167.2 cm/sec MV A max ronak: 74.0 cm/sec Ao max P.2 mmHg MV E/A: 0.93 Ao V2 mean: 112.1 cm/sec MV dec time: 0.24 sec Ao mean P.7 mmHg Ao V2 VTI: 34.0 cm SONAM(I,D): 2.1 cm2 SONAM(V,D): 1.8 cm2 LV V1 max P.7 mmHg MR max ronak: 175.9 cm/sec LV V1 mean P.3 mmHg MR max P.4 mmHg LV V1 max: 108.6 cm/sec LV V1 mean: 68.1 cm/sec LV V1 VTI: 24.9 cm SV(LVOT): 70.4 ml TR max ronak: 240.3 cm/sec TR max P.1 mmHg PA V2 max: 67.1 cm/sec Med Peak E' Ronak: 3.3 cm/sec PA max P.8 mmHg Med E/e': 20.9 Lat Peak E' Ronak: 5.9 cm/sec Lat E/e': 11.5 Procedure A complete two-dimensional transthoracic echocardiogram was performed (2D, M-mode, Doppler and color flow Doppler). Left Ventricle There is mild concentric left ventricular hypertrophy. The left ventricular ejection fraction is norm al. Ejection Fraction = 55-60%. The left ventricular wall motion is normal. Right Ventricle The right ventricle is normal in size and function. Atria Normal left and right atrial size and function. Mitral Valve There is no mitral regurgitation noted. Tricuspid Valve There is trace tricuspid regurgitation. There was insufficient TR detected to calculate RV systolic p ressure. Aortic Valve No hemodynamically significant valvular aortic stenosis. No aortic regurgitation is present. Pulmonic Valve There is no pulmonic valvular regurgitation. Great Vessels The aortic root is normal size. Pericardium/Pleura There is no pericardial effusion. Interpretation Summary There is mild concentric left ventricular hypertrophy. The left ventricular ejection fraction is normal. The right ventricle is normal in size and function. There is trace tricuspid regurgitation. MD Juan Heaton 05/16/2019 02:31 PM
--- NOTE | 2019-05-16 15:29 | PN ---
Progress Note, Physician - Current Medication List Current Medications: Active Medications Amlodipine Besylate (Norvasc -) 5 mg PO DAILY [facility] Last Admin: 05/16/19 09:14 Dose: Not Given Atorvastatin Calcium (Lipitor -) 80 mg PO HS [facility] Last Admin: 05/15/19 22:35 Dose: 80 mg Clonidine (Catapres -) 0.1 mg PO BID [facility] Last Admin: 05/16/19 09:14 Dose: Not Given Clopidogrel Bisulfate (Plavix -) 75 mg PO DAILY [facility] Last Admin: 05/16/19 09:14 Dose: Not Given Labetalol HCl (Normodyne -) 400 mg PO BID [facility] Last Admin: 05/16/19 09:14 Dose: Not Given Lisinopril (Prinivil) 20 mg PO DAILY [facility] Last Admin: 05/16/19 09:14 Dose: Not Given - Objective Vital Signs: Vital Signs Temperature 97.3 F L 05/16/19 15:00 Pulse Rate 68 05/16/19 15:00 Respiratory Rate 20 05/16/19 15:00 Blood Pressure 152/89 05/16/19 15:00 O2 Sat by Pulse Oximetry (%) 98 05/16/19 09:00 Selected Entries 05/16/19 05/16/19 05/16/19 06:00 09:00 11:00 Blood Pressure 176/108 H 180/103 H 137/96 05/16/19 15:00 Blood Pressure 152/89 Constitutional: Yes: Well Nourished, No Distress Eyes: Yes: Conjunctiva Clear, EOM Intact HENT: Yes: Atraumatic, Normocephalic Neck: Yes: Supple, Trachea Midline Cardiovascular: Yes: Regular Rate and Rhythm. No: JVD Respiratory: Yes: Regular, CTA Bilaterally Gastrointestinal: Yes: Normal Bowel Sounds, Soft Edema: No Peripheral Pulses WNL: Yes Labs: CBC, BMP 05/15/19 05:32 05/15/19 05:32 INR, PTT INR 1.13 (0.83-1.09) H 05/14/19 17:40 Problem List - Problems (1) Cerebrovascular accident (CVA) Code(s): I63.9 - CEREBRAL INFARCTION, UNSPECIFIED (2) HTN (hypertension) Code(s): I10 - ESSENTIAL (PRIMARY) HYPERTENSION Assessment/Plan Admitted with transient blurrec vision. MRI with recent stroke Severe HTN Echo with normal LV function and no significant vavular pathology. Rec: Blood pressure improved on current therapy. Echo is normal No arrhythmia on telem. can DC Maximize Amlodipine, labetalol and lisinopril and add Clonidine if needed. Will see as needed.
--- NOTE | 2019-05-16 15:40 | CONS ---
PHYSICAL MEDICINE AND REHABILITATION CONSULTATION DATE OF CONSULTATION: 05/16/2019 REFERRING PHYSICIAN: Lidia Griffin MD HISTORY OF PRESENT ILLNESS: The patient is a 54-year-old man with past medical history of hypertension, diabetes, and perirectal abscess, who was admitted with double vision and restricted eye movement on his left side. Patient saw director advertising who suspected a 3rd nerve palsy. There was no ptosis, no headache, no isolated weakness. Patient underwent a CT of the head, which was unremarkable. An MRI of the brain, however, showed a subacute infarct involving the right posterior-frontal centrum semiovale. There were also some chronic changes noted. Patient was evaluated by Neurology who noted these findings and stated that the patient is stable for discharge. MRA was unremarkable and carotid Doppler study showed mild intimal thickening with small plaque at the right common carotid bifurcation, as well as some mild intimal thickening and soft plaque in the left common carotid bifurcation without any hemodynamically significant stenosis. Blood work on admission, May 14, showed WBC was 5.7, hemoglobin slightly low at 10.3, platelet count 274, chemistry was normal, sodium 144, potassium 4.0, chloride 111, CO2 of 29, BUN 20.6, creatinine 1.3, total protein slightly low at 5.6, albumin low at 2.8, troponin less than 0.02. Blood work was repeated, on May 15; stable hemoglobin of 9.7, WBC is normal at 7.0, platelet count 251, BUN 20.3, creatinine 1.3. Patient states he is ambulating and has no further double vision. He reports no difficulty swallowing or chewing. No loss of balance. No dizziness, lightheadedness. No weakness, numbness, tingling in the upper or lower limbs. REVIEW OF PAST MEDICAL AND SURGICAL HISTORY: Hypertension; hyperlipidemia; diabetes; perirectal abscess. SOCIAL HISTORY: Lives with spouse in a basement apartment with stairs. Premorbidly, completely independent. Current function: He is ambulating within the room without device, no loss of balance. REVIEW OF SYSTEMS: As above. No headache. No blurry vision, double vision, change in vision. No nausea, vomiting, difficulty swallowing, cough with swallow. No chest pain, shortness of breath. No fever or chills. No speech abnormalities. No weakness, numbness, tingling in the upper or lower limbs. No bowel or bladder incontinence. PHYSICAL EXAMINATION: General: On examination, the patient is a well-developed man, seen sitting, standing, and ambulating. HEENT: He is normocephalic and atraumatic. Extraocular muscles appear intact. He has no obvious facial weakness. Neck: Supple. Extremities: Without any pitting edema or calf tenderness. Neuromuscular: He is awake. Alert. Fully oriented x3. Cranial nerves 2 through 12 grossly intact. He has good strength and range throughout his upper and lower limbs. Good [id number]. Normal sensation. Symmetric reflexes. His ambulation is steady without device. He can ambulate heel-to-toe with tandem walking without loss of balance. OVERALL IMPRESSION: 1. Status post cerebrovascular accident. 2. Status post double vision. 3. Hypertension. 4. Diabetes. 5. Mild anemia. 6. History of hyperlipidemia. 7. History of perirectal abscess. PLAN/SUGGESTION: 1. From a rehab standpoint, he appears stable for discharge. 2. I have provided him with my card and can follow up as an outpatient, if he develops any deficits in his mobility. 3. No evidence of any dysphagia. 4. No speech abnormalities. 5. No further double vision. 6. Thank you for this referral. MICKEY PURI M.D. [id number]
[2019-05-16] MEDS: ATORVASTATIN CA 80 MG TABLET (FP) PO SCH (21:30)
--- NOTE | 2019-05-17 09:14 | DS ---
Physical Examination Vital Signs: Vital Signs Temperature 97.6 F 05/17/19 06:00 Pulse Rate 69 05/17/19 06:00 Respiratory Rate 19 05/17/19 06:00 Blood Pressure 131/87 05/17/19 06:00 O2 Sat by Pulse Oximetry (%) 97 05/16/19 21:00 Cardiovascular: Yes: S1, S2 Respiratory: Yes: Regular, CTA Bilaterally Gastrointestinal: Yes: Normal Bowel Sounds, Soft Neurological: Yes: Alert, Oriented Labs: CBC, BMP 05/15/19 05:32 05/15/19 05:32 Discharge Summary Problems reviewed: Yes Reason For Visit: POSSIBLE STROKE Current Active Problems Cerebrovascular accident (CVA) (Acute) Cranial nerve III palsy (Acute) Hospital Course: - Problems (1) Cerebrovascular accident (CVA) Assessment/Plan: -Neurology and Cardiology consult -Head CT scan shows mild to moderate volume loss and mild periventricular chornic microvascular ischemic disease changes with CT evidence of acute intrancranial pathology -Brain MRI and with MRA--mall ischemic lesion on right bunch radiata and mra of brain unremarkable -Carotid US done results pending -neuro checks q4h -tele monitoring -fall precaution -Plavix -Atorvastatin -BP control Code(s): I63.9 - CEREBRAL INFARCTION, UNSPECIFIED (2) HTN (hypertension) Assessment/Plan: -Cardiology consult -Labetolol, Lisinopril, Amlodipine--add clonidine -low Na diet -tele monitoring Code(s): I10 - ESSENTIAL (PRIMARY) HYPERTENSION (3) Diabetes Code(s): E11.9 - TYPE 2 DIABETES MELLITUS WITHOUT COMPLICATIONS Qualifiers: Diabetes mellitus type: other specified (including ELYSE) Diabetes mellitus shelter insulin use: without shelter use Diabetes mellitus complication status: with hyperglycemia Qualified Code(s): E13.65 - Other specified diabetes mellitus with hyperglycemia (4) Cranial nerve III palsy Assessment/Plan: -Neurology and Cardiology consult noted -Head CT scan shows mild to moderate volume loss and mild periventricular chornic microvascular ischemic disease changes with CT evidence of acute intrancranial pathology -Brain MRI and with MRA--mall ischemic lesion on right bunch radiata and mra of brain unremarkable -Carotid US done results no sig stenosis -neuro checks q4h -tele monitoring -fall precaution -will need optho follow up as outpatient Code(s): H49.00 - THIRD [OCULOMOTOR] NERVE PALSY, UNSPECIFIED EYE Condition: Stable - Instructions Referrals: Lidia Griffin MD [Primary Care Provider] - 1 Week Disposition: HOME - Home Medications Comprehensive Discharge Medication List: Ambulatory Orders Atorvastatin Ca [Lipitor] 80 mg PO HS 07/10/17 Lisinopril [Prinivil] 10 mg PO DAILY 11/10/17 metFORMIN HCL [Metformin ER Osmotic] 500 mg PO BID 11/22/17 Aspirin 81 mg PO DAILY 05/14/19 Clopidogrel Bisulfate [Plavix -] 75 mg PO HS 05/14/19 Gabapentin 200 mg PO BID 05/14/19 Amlodipine Besylate [Norvasc -] 5 mg PO BID #60 tablet 05/17/19 Clopidogrel Bisulfate [Plavix -] 75 mg PO DAILY #30 tablet 05/17/19 Labetalol HCl [Normodyne -] 400 mg PO BID #120 tablet 05/17/19 cloNIDine HCL [Catapres -] 0.1 mg PO BID #60 tablet 05/17/19
[2019-05-17] MEDS ORDERED: amLODIPine BESYLATE 5 MG TABLET (FP) PO SCH (10:00)
--- NOTE | 2019-05-17 10:15 | PN ---
Progress Note (short form) - Note Progress Note: 54 year old male history of htn, stroke came with dizziness and double vision. patient saw optho and suspected third nerve palsy, there is no ptosis no headache. Patient has normal ct head and mri of brain and mra of brain pending He was taking apirin at home , but no statin. patient is feeling better and double vision has improved. mri of brain and carotid ultrasound report appreciated no new complain, feeling better, have appt to see optho tomorrow NEUROLOGICAL EXAMINATION Alert oriented x 3 , neck is supple vss left eye deficit in adduction of left eye and downward movement pupils reactive moving all ext no pronator drift ct head unremarkable carotid ultrasound is normal mri of brain showed small ischemic lesion on right bunch radiata and mra of brain unremarkable Assessment/Plan Left third nerve palsy with pupils sparing, suspect due to ischemia, symptoms are getting better, mri of brain showed a incidental ischemic lesion and there is no aneurysm on mra Plan: - continue plavix and statin - carotid ultrasound report appreciated - follow up outpatient Thanking you so much Thom Clancy MD
[2019-05-17] MEDS: LISINOPRIL 20 MG TABLET (FP) PO SCH (11:29)
[2019-05-17] MEDS: CLOPIDOGREL BISULFATE 75 MG TABLET (FP) PO SCH (11:29)
[2019-05-17] MEDS: cloNIDine HCL 0.1 MG TABLET PO SCH (11:29)
[2019-05-17] MEDS: LABETALOL HCL 200 MG TABLET (FP) PO SCH (11:30)
[2019-05-17 14:05] VITALS: BP 147/84; PULSE 68; TEMP 97.8
== END 2019-05-17 13:10 | disposition home or self-care (01) | DRG 45 ==
LOC: JER 17:03 → JERBED 21:26 → J4W 05-15 16:35
PROVIDERS: ADMIT Internal Medicine; ATTEND Family Medicine
DX: I63.89 Other cerebral infarction (principal); R47.81 Slurred speech; E11.9 Type 2 diabetes mellitus without complications; G81.94 Hemiplegia, unspecified affecting left nondominant side; H49.00 Third [oculomotor] nerve palsy, unspecified eye; I16.0 Hypertensive urgency; I10 Essential (primary) hypertension; F17.210 Nicotine dependence, cigarettes, uncomplicated; D64.9 Anemia, unspecified
CPT/HCPCS: 36415; 70450-TC; 70544-TC; 70551-TC; 80048; 80053; 80061; 81003; 82550; 82553; 82962; 83721; 84484; 85025; 85610; 85730; 86850; 86900; 86901; 93005; 93010; 93306-TC; 93880-TC; 97116-GP; 97161-GP; 99285-25; J0735; J7030

== ENCOUNTER 2019-11-28 10:25 | Inpatient (IN) | payer OTHER ==
[2019-11-28 11:55] LABS: BASO % 0.9 % (0-2.0); EOS % 4.6 % (0-4.5); HEMATOCRIT 23.5 % (35.4-49); HEMOGLOBIN 7.7 GM/dL (11.7-16.9); LYMPH % 11.1 % (8-40); MCH 27.1 pg (25.7-33.7); MCHC 32.6 g/dl (32.0-35.9); MEAN CELL VOLUME 83.3 fl (80-96); MEAN PLT VOLUME 8.6 fl (7.5-11.1); MONO % 7.6 % (3.8-10.2); NEUT % 75.8 % (42.8-82.8); PLATELET COUNT 177 K/MM3 (134-434); RBC 2.83 M/mm3 (4.00-5.60); RDW 14.6 % (11.9-15.9); WHITE BLOOD COUNT 3.8 K/mm3 (4.0-10.0)
--- NOTE | 2019-11-28 12:17 | PDOC ---
Attending Attestation - Resident Resident Name: PatriciaJaden rubio - ED Attending Attestation I have performed the following: I have examined & evaluated the patient, The case was reviewed & discussed with the resident, I agree w/resident's findings & plan - HPI HPI: 11/28/19 12:03 54-year-old male with history of hypertension, high cholesterol, diabetes presented to [facility] few days ago complaining of progressive edema and shortness of breath/orthopnea, discharged on increased oral Lasix, follow-up today of lab results showed BNP of 19,000 and congestion/effusions on chest x-ray with worsening peripheral edema despite increased oral Lasix so he was referred to the emergency department for admission for diuresis. - Physicial Exam PE: 11/28/19 12:04 Hypertensive, O2 sat otherwise normal Pleasant gentleman seated upright in stretcher, breathing comfortably now and speaking full sentences Heart is regular, bibasilar crackles with decreased lung sounds at the bases Abdomen benign 2+ edema to the groin bilaterally - Medical Decision Making 11/28/19 12:04 54-year-old male with history of hypertension, high cholesterol, diabetes with progressive volume overload and both peripheral and pulmonary edema, hemodynamically stable here. Echo 10/11 showed mild concentric LVH without sig valvular stenosis/regurg. Labs, EKG, chest x-ray IV diuresis Renal and cardiology consult Admission 11/28/19 12:06 progressive anemia chem pending Heart Score/ECG Review #1 ECG reviewed & interpreted by me at: 11:39 General ECG Interpretation: Sinus Rhythm, Normal Rate (65), Normal Intervals (qtc 495), No acute ischemic changes (TWI I/AVL, V4-6) Compared to previous ECG there are: Changes noted (c/w 09/10, V5-6 TWI are new) Discharge - Discharge Information Problems reviewed: Yes Clinical Impression/Diagnosis: SENA (acute kidney injury) HTN (hypertension) Qualifiers: Hypertension type: unspecified Qualified Code(s): I10 - Essential (primary) hypertension Anemia Qualifiers: Anemia type: unspecified type Qualified Code(s): D64.9 - Anemia, unspecified CHF (congestive heart failure) Qualifiers: Heart failure type: unspecified Heart failure chronicity: unspecified Qualified Code(s): I50.9 - Heart failure, unspecified Condition: Fair - Follow up/Referral Referrals: Iván Braga MD [Primary Care Provider] - - Patient Discharge Instructions - Post Discharge Activity
[2019-11-28] MEDS ORDERED: FUROSEMIDE 40 MG/4 ML INJECTABLE VIAL IVPUSH ONE (12:21)
[2019-11-28] MEDS ORDERED: FUROSEMIDE 40 MG/4 ML INJECTABLE VIAL ONE ×2 (12:24→14:26)
[2019-11-28 12:26] LABS: ALBUMIN 2.8 g/dl (3.4-5.0); BILIRUBIN,TOTAL 0.4 mg/dL (0.2-1); BLOOD UREA NITROGEN 35.1 mg/dL (7-18); CALCIUM 8.3 mg/dL (8.5-10.1); N-TERMINAL BNP 15871.9 pg/ml (5-125); POTASSIUM 3.4 mmol/L (3.5-5.1); TOT PROT 5.6 g/dl (6.4-8.2)
--- NOTE | 2019-11-28 12:27 | PDOC ---
History of Present Illness - General Chief Complaint: Congestive Heart Failure Stated Complaint: SENT BY PCP Time Seen by Provider: 11/28/19 11:18 - History of Present Illness Initial Comments: The pt is a 54M w/ a history of CHF, renal failure, HTN who presents for evaluation of several days of worsening SOB and ODELL. The pt also reports associated BLE swelling. The pt was seen outpt by Dr. [place]inson [place] [address] and Cr 2.9 from 2.4. He states that he can now only walk several steps before becoming short of breath. He denies chest pain, fevers/chills, TINAJERO, vision changes, N/V, dysuria, paolo turia, diarrhea, or blood in stool, or changes in sensation 11/28/19 12:43 Past History - Medical History Allergies/Adverse Reactions: Allergies Allergy/AdvReac Type Severity Reaction Status Date / Time No Known Allergies Allergy Verified 11/28/19 10:39 Home Medications: Ambulatory Orders Atorvastatin Ca [Lipitor] 40 mg PO HS 07/10/17 Aspirin 81 mg PO DAILY 05/14/19 Gabapentin 200 mg PO BID 05/14/19 Furosemide [Lasix] 40 mg PO BID 11/25/19 Alogliptin Benzoate [Alogliptin] 6.25 mg PO DAILY 11/28/19 Amlodipine Besylate [Norvasc -] 5 mg PO DAILY 11/28/19 Cholecalciferol (Vitamin D3) [Vitamin D -] 5,000 unit PO ASDIR 11/28/19 Hydralazine HCl 50 mg PO BID 11/28/19 Labetalol HCl [Normodyne -] 400 mg PO TID 11/28/19 Lisinopril 5 mg PO DAILY 11/28/19 Meclizine HCl [Antivert -] 12.5 mg PO TID 11/28/19 Sodium Bicarbonate 650 mg PO BID 11/28/19 Tamsulosin HCl [Flomax] 0.4 mg PO DAILY 11/28/19 Anemia: No Asthma: No Cancer: No Cardiac Disorders: No CVA: Yes (2 TIA) COPD: No CHF: No DVT: No Dementia: No Diabetes: Yes GI Disorders: No Disorders: No HTN: Yes Hypercholesterolemia: Yes Liver Disease: No Seizures: No Thyroid Disease: No - Psycho-Social/Smoking History Smoking History: Current every day smoker Have you smoked in the past 12 months: Yes Number of Cigarettes Smoked Daily: 5 Information on smoking cessation initiated: No 'Breaking Loose' booklet given: 05/15/19 - Substance Abuse Hx (Audit-C & DAST Scrn) How often the patient has a drink containing alcohol: Never Score: In Men: 4 or > Positive; In Women: 3 or > Positive: 0 Screen Result (Pos requires Nsg. Audit-10AR): Negative In the last yr the pt used illegal drug/Rx for NonMed reason: No Score: Yes response is considered Positive: 0 Screen Result (Positive result requires Nsg. DAST-10): Negative Review of Systems - Review of Systems Able to Perform ROS?: Yes Comments:: GENERAL/CONSTITUTIONAL: No fever or chills. No weakness HEAD, EYES, EARS, NOSE AND THROAT: No change in vision. No change in hearing. No sore throat CARDIOVASCULAR: +SOB RESPIRATORY: Denies cough, hemoptysis GASTROINTESTINAL: No nausea, vomiting, diarrhea or constipation GENITOURINARY: No dysuria, frequency, or change in urination MUSCULOSKELETAL: No joint or muscle pain. No neck or back pain SKIN: No rash NEUROLOGIC: No headache, vertigo, loss of consciousness, or change in strength/sensation ENDOCRINE: No increased thirst. No abnormal weight change HEMATOLOGIC/LYMPHATIC: No anemia, easy bleeding, or history of blood clots ALLERGIC/IMMUNOLOGIC: No hives or skin allergy 11/28/19 12:27 Is the patient limited Hungarian proficient: No *Physical Exam - Vital Signs Last Vital Signs Temp Pulse Resp BP Pulse Ox 98.4 F 68 18 188/97 H 96 11/28/19 10:36 11/28/19 10:36 11/28/19 10:36 11/28/19 10:36 11/28/19 10:36 - Physical Exam GENERAL: Awake, alert, and oriented to person/place/time, in no acute distress HEAD: No signs of trauma, normocephalic, atraumatic EYES: PERRLA, EOMI, sclera anicteric, conjunctiva clear ENT: Hearing grossly normal, nares patent, oropharynx clear without exudates. Moist mucosa LUNGS: No distress, speaks in full sentences, decreased breath sounds at bases HEART: Regular rate and rhythm, normal S1 and S2, no murmurs appreciated, peripheral pulses normal and equal bilaterally ABDOMEN: Soft, nontender, normoactive bowel sounds. No guarding, no rebound EXTREMITIES: Moves all extremities independently, BLE edema to mid ashley NEUROLOGICAL: Cranial nerves II through XII grossly intact. Normal speech, no focal sensorimotor deficits SKIN: Warm, Dry 11/28/19 12:27 ED Treatment Course - LABORATORY CBC & Chemistry Diagram: 11/28/19 11:15 11/28/19 11:15 - ADDITIONAL ORDERS Additional order review: Laboratory Results 11/28/19 11:15 Sodium 148 H Potassium 3.4 L Chloride 112 H Carbon Dioxide 28 Anion Gap 8 BUN 35.1 H Creatinine 3.0 H Est GFR (CKD-EPI)AfAm 26.09 Est GFR (CKD-EPI)NonAf 22.51 Random Glucose 155 H Calcium 8.3 L Total Bilirubin 0.4 AST 25 ALT 31 Alkaline Phosphatase 131 H Troponin I 0.02 B-Natriuretic Peptide 95020.9 H Total Protein 5.6 L Albumin 2.8 L 11/28/19 11:15 RBC 2.83 L MCV 83.3 MCHC 32.6 RDW 14.6 MPV 8.6 Neutrophils % 75.8 Lymphocytes % 11.1 D Monocytes % 7.6 Eosinophils % 4.6 H Basophils % 0.9 - RADIOLOGY Radiology Studies Ordered: Category Date Time Status CHEST X-RAY PORTABLE* [RAD] Stat Radiology 11/28/19 11:08 Taken Medical Decision Making - Medical Decision Making The pt is a 54M w/ a history of CHF, renal failure, HTN who presents for evaluation of several days of worsening SOB and ODELL. Likely 2/2 CHF exacerbation ED Course CMP, CBC, Trop I, BNP ECG CXR CXR w/ evidence of vascular congestion ECG w/ NSR; HR 65; QTc 495; no axis deviation; TWI I, aVL, V5, V6; abn ECG Trop I neg BNP elevated Hypokalemia noted, will replete Leukopenia noted, no fever/tachycardia Anemia noted, will withhold transfusion at this time Remaining lytes overall unremarkable Cr 3.0 noted, worse from reported baseline of 2.[address] Hutchinson consulted Pt admitted for CHF exacerbation 11/28/19 13:10 Discharge - Discharge Information Problems reviewed: Yes Clinical Impression/Diagnosis: SENA (acute kidney injury) HTN (hypertension) Qualifiers: Hypertension type: unspecified Qualified Code(s): I10 - Essential (primary) hypertension Anemia Qualifiers: Anemia type: unspecified type Qualified Code(s): D64.9 - Anemia, unspecified CHF (congestive heart failure) Qualifiers: Heart failure type: unspecified Heart failure chronicity: unspecified Qualified Code(s): I50.9 - Heart failure, unspecified Condition: Fair - Admission Yes - Follow up/Referral - Patient Discharge Instructions - Post Discharge Activity
[2019-11-28] MEDS ORDERED: POTASSIUM CHLORIDE TABS 20 MEQ TABLET.ER (FP) PO ONE ×2 (12:29→12:38)
--- NOTE | 2019-11-28 13:11 | PN ---
Teaching Attending Note Name of Resident: Dustin Olson ATTENDING PHYSICIAN STATEMENT I saw and evaluated the patient. I reviewed the resident's note and discussed the case with the resident. I agree with the resident's findings and plan as documented. SUBJECTIVE: 54 year old Male with known history of CAD, CHF, hypertension, high cho lesterol, diabetes mellitus type 2 who presents to the ED complaining of severe shortness of breath of 2-3 days' duration. He has been sleeping with head of bed up at least 60 degrees. He denied ioana chest pains. he went to see his PCP few days ago, and was sent home with a higher dose of lasix. Labs showed very high BNP of 19,000 and CXR also showed findings concerning for pulm congestion. OBJECTIVE: Gen: appears older than stated age; thin, not in acute distress HEENT: EOMI, no oral lesions neck; supple, no JVD elevation Chest: crackles bilateral lung rowell with insp and exp wheeze CVS: RRR, no murmurs abd: obese, soft distended, positive fluid wave ext: grade II pitting lower extremity edema, feet are warm and dry head filter press tender; no motor nor sensory deficit ASSESSMENT AND PLAN: 1. SOB secondary to CHF Exacerbation - cont with gentle diuresis in view of compromised renal function - oxygen support to keep sats>91% - echo to eval EF if none done in the last year (none on available records) - NTG paste as BP tolerates - aspirin, statin - daily weights - monitor electrolytes - cardiac monitoring 2. DM 2 - cont SSI, accuchecks - check A1c - holding off on BRITTANY (home med) as ongoing diuresis 3. CKD stage 4 - avoid nephrotoxic agents - hold off on BRITTANY for today. Re-evaluate in am 4. DVT prophylaxis - heparin sq
[2019-11-28] MEDS ORDERED: NITROGLYCERIN 2% OINTMENT - 1GM PACKET TD ONE ×2 (13:33→14:24)
--- NOTE | 2019-11-28 13:57 | HP ---
CHIEF COMPLAINT: SOB, worsening LE edema PCP: HISTORY OF PRESENT ILLNESS: 54 year old male with PMH of CHF, CKD, HTN, DM, BPH, TIA. He was sent to the ER by Dr. Hdez after he was found to have a Cr of 2.9 (from baseline around 2.4) and a BNP of 15k. Endorses worsening SOB over the past month as well as wors ening LE edema up to hs thighs, orthopnea and PND. He is able to walk a few steps, ambulates with a cane, and uses 2 pillows to sleep at night. Last Echo was 10/10: EF 50% with mild MR/TR. ER course was notable for: CXR showed B/L congestion more pronounced at the bases, BNP was 15k Nephro consulted, given Lasix 40mg IV HOME MEDICATIONS: Home Medications Medication Instructions Recorded Atorvastatin Ca [Lipitor] 40 mg PO HS 07/10/17 Aspirin 81 mg PO DAILY 05/14/19 Gabapentin 200 mg PO BID 05/14/19 Furosemide [Lasix] 40 mg PO DAILY 11/25/19 Alogliptin Benzoate [Alogliptin] 6.25 mg PO DAILY 11/28/19 Amlodipine Besylate [Norvasc -] 5 mg PO DAILY 11/28/19 Cholecalciferol (Vitamin D3) 5,000 unit PO ASDIR 11/28/19 [Vitamin D -] Hydralazine HCl 50 mg PO BID 11/28/19 Labetalol HCl [Normodyne -] 400 mg PO TID 11/28/19 Lisinopril 5 mg PO DAILY 11/28/19 Meclizine HCl [Antivert -] 12.5 mg PO TID 11/28/19 Sodium Bicarbonate 650 mg PO BID 11/28/19 Tamsulosin HCl [Flomax] 0.4 mg PO DAILY 11/28/19 REVIEW OF SYSTEMS SOB, LE edema, urinary hesitancy PHYSICAL EXAMINATION Vital Signs - 24 hr 11/28/19 10:36 Temperature 98.4 F Pulse Rate 68 Respiratory 18 Rate Blood Pressure 188/97 H O2 Sat by Pulse 96 Oximetry (%) GENERAL: AOx3 LUNGS: Decreased BS B/L, no crackles HEART: Regular rate and rhythm, normal S1 and S2 without murmur, rub or gallop. ABDOMEN: Soft, nontender, not distended, normoactive bowel sounds, no guarding, no rebound, no masses. No hepatomegaly or splenomegaly. LOWER EXTREMITIES: 3+ pitting edema B/L NEUROLOGICAL: Motor 5/5, Sensations 5/5 Laboratory Results - last 24 hr 11/28/19 11/28/19 11:15 11:15 WBC 3.8 L RBC 2.83 L Hgb 7.7 L Hct 23.5 L MCV 83.3 MCH 27.1 MCHC 32.6 RDW 14.6 Plt Count 177 MPV 8.6 Absolute Neuts (auto) 2.9 Neutrophils % 75.8 Lymphocytes % 11.1 D Monocytes % 7.6 Eosinophils % 4.6 H Basophils % 0.9 Nucleated RBC % 0 Sodium 148 H Potassium 3.4 L Chloride 112 H Carbon Dioxide 28 Anion Gap 8 BUN 35.1 H Creatinine 3.0 H Est GFR (CKD-EPI)AfAm 26.09 Est GFR (CKD-EPI)NonAf 22.51 Random Glucose 155 H Calcium 8.3 L Total Bilirubin 0.4 AST 25 ALT 31 Alkaline Phosphatase 131 H Troponin I 0.02 B-Natriuretic Peptide 60542.9 H Total Protein 5.6 L Albumin 2.8 L ASSESSMENT/PLAN: 54 year old male with PMH of CHF, CKD, HTN, DM, BPH, TIA. He was sent to the ER by Dr. Hdez after he was found to have a Cr of 2.9 (from baseline around 2.4) and a BNP of 15k. Endorses worsening SOB over the past month as well as worsening LE edema, admitted for CHF exacerbation. #CHF exacerbation - Lasix 40mg IV BID - Tele monitoring, Echo - Daily weights, I/Os - Cardio consulted #SENA - May be due to decreased effective arteriolar volume 2/2 worsening CHF - Nephro consulted, will consider gentle hydration #Anemia - Will consider transfusion <7 - Likely 2/2 ESRD - Fe studies, FOBT ordered #FEN - Na 148, will monitor for now, avoiding 1/2NS due to CHF - K 3.4, given 40mEQ in ER, will monitor - Na controlled diet #Hx of HTN/DM/BPH - Continue Norvasc, Hydralazine, hold Lisinopril - BGM, ISS, A1c - Continue Flomax #Prophylaxis - SCDs for now until FOBT result #Dispo - Monitor in Tele ATTENDING PHYSICIAN STATEMENT I saw and evaluated the patient. I reviewed the resident's note and discussed the case with the resident. I agree with the resident's findings and plan as documented. SUBJECTIVE: OBJECTIVE: ASSESSMENT AND PLAN:
[2019-11-28] MEDS ORDERED: FUROSEMIDE 40 MG/4 ML INJECTABLE VIAL IVPUSH SCH ×2 (14:00)
[2019-11-28] MEDS ORDERED: hydrALAZINE HCL 50 MG TABLET (FP) PO ONE (14:05)
[2019-11-28] MEDS ORDERED: amLODIPine BESYLATE 5 MG TABLET (FP) PO ONE (14:05)
[2019-11-28] MEDS ORDERED: LABETALOL HCL 100 MG TABLET (FP) ONE (14:24)
[2019-11-28] MEDS ORDERED: amLODIPine BESYLATE 5 MG TABLET (FP) ONE (14:25)
[2019-11-28] MEDS ORDERED: hydrALAZINE HCL 25 MG TABLET (FP) ONE (14:26)
[2019-11-28] MEDS: LABETALOL HCL 200 MG TABLET (FP) PO SCH (14:35)
[2019-11-28] MEDS: CHOLECALCIFEROL (VIT D3) 1,000 UNIT (25 MCG) TABLET PO SCH (14:35)
--- NOTE | 2019-11-28 14:43 | CON.CARD ---
Consult Consult Specialty:: Cardiology - History of Present Illness Chief Complaint: Dyspnea History of Present Illness: 54 year old male with ho severe HTN, DM, CVA on chronic diuretic therapy and fairly new onset of renal failure. Came to ER with 1 month of increasing swelling Dyspnea with minimal effort, anorexia and orthopnea. He is compliant with his medications. Lasix was recently raised from 40mg qd to 40mg bid. without much effect. He was given Lasix 40mg IV in ER with some diuretic effect, Noted to have BP 180/100. His BP is"always elevated". There is no chest pain, prior ho CAD. Echocardiogram 09/2019 showed mild LVH EF 50% without significant valvular disease. 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 Cardio/Vascular: Yes: HTN, Hyperlipdemia Endocrine: Yes: Diabetes Mellitus Additional Medical History: perirectal abscess 06/2017 - Alcohol/Substance Use Hx Alcohol Use: No - Smoking History Smoking history: Current every day smoker Have you smoked in the past 12 months: Yes Aproximately how many cigarettes per day: 5 - Social History Usual Living Arrangement: With Spouse ADL: Independent History of Recent Travel: No Home Medications - Allergies Allergies/Adverse Reactions: Allergies Allergy/AdvReac Type Severity Reaction Status Date / Time No Known Allergies Allergy Verified 11/28/19 10:39 - Home Medications Home Medications: Ambulatory Orders Atorvastatin Ca [Lipitor] 40 mg PO HS 07/10/17 Aspirin 81 mg PO DAILY 05/14/19 Gabapentin 200 mg PO BID 05/14/19 Furosemide [Lasix] 40 mg PO BID 11/25/19 Alogliptin Benzoate [Alogliptin] 6.25 mg PO DAILY 11/28/19 Amlodipine Besylate [Norvasc -] 5 mg PO DAILY 11/28/19 Cholecalciferol (Vitamin D3) [Vitamin D -] 5,000 unit PO ASDIR 11/28/19 Hydralazine HCl 50 mg PO BID 11/28/19 Labetalol HCl [Normodyne -] 400 mg PO TID 11/28/19 Lisinopril 5 mg PO DAILY 11/28/19 Meclizine HCl [Antivert -] 12.5 mg PO TID 11/28/19 Sodium Bicarbonate 650 mg PO BID 11/28/19 Tamsulosin HCl [Flomax] 0.4 mg PO DAILY 11/28/19 Review of Systems - Review of Systems Constitutional: reports: No Symptoms Eyes: reports: No Symptoms HENT: reports: No Symptoms Neck: reports: No Symptoms Cardiovascular: reports: Edema, Shortness of Breath. denies: Chest Pain Respiratory: reports: Cough, Exercise Intolerance, SOB, SOB on Exertion Gastrointestinal: reports: Bloating Breasts: reports: No Symptoms Reported Musculoskeletal: reports: No Symptoms Integumentary: reports: No Symptoms Vital Signs: Vital Signs Temperature 98.4 F 11/28/19 10:36 Pulse Rate 73 11/28/19 14:36 Respiratory Rate 19 11/28/19 14:36 Blood Pressure 189/113 H 11/28/19 14:36 O2 Sat by Pulse Oximetry (%) 97 11/28/19 14:36 Constitutional: Yes: Well Nourished, No Distress Eyes: Yes: Conjunctiva Clear, EOM Intact HENT: Yes: Atraumatic, Normocephalic Neck: Yes: Supple, Trachea Midline Respiratory: Yes: Regular, Rales Gastrointestinal: Yes: Normal Bowel Sounds Cardiovascular: Yes: Regular Rate and Rhythm JVD: Yes PMI: Non-Displaced Heart Sounds: Yes: S1, S2 Murmur: No: Systolic Murmur, Diastolic Murmur Edema: Yes Edema: LLE: 1+, RLE: 1+ (to abdomen) - Other Data Labs, Other Data: CBC, BMP 11/28/19 11:15 11/28/19 11:15 Troponin, BNP 11/28/19 11:15 Troponin I 0.02 B-Natriuretic Peptide 62018.9 H Troponin, BNP 11/28/19 11:15 Troponin I 0.02 B-Natriuretic Peptide 20183.9 H Imaging - Results Chest X-ray: Report Reviewed Problem List - Problems (1) SENA (acute kidney injury) Code(s): N17.9 - ACUTE KIDNEY FAILURE, UNSPECIFIED (2) CHF (congestive heart failure) Code(s): I50.9 - HEART FAILURE, UNSPECIFIED Qualifiers: Heart failure type: unspecified Heart failure chronicity: unspecified Qualified Code(s): I50.9 - Heart failure, unspecified (3) HTN (hypertension) Code(s): I10 - ESSENTIAL (PRIMARY) HYPERTENSION Qualifiers: Hypertension type: unspecified Qualified Code(s): I10 - Essential (primary) hypertension Assessment/Plan 54 M DM, with CKD recently diagnosed. Has severe HTN and is admitted with severe HTN, heart failure and SENA on CKD. Echocardiogram recently showed borderline EF w LVH. Pt w severe HTN. Likely acute on chronic diastolic CHF. ER Echo today reviewed by me. limited views only: normal LV function with small pericardial effusion and plethoric IVC consistent with diastolic CHF. Rec: * ECG * Repeat echocardiogram. * Start Nitroglycerin drip 30-50mcg/min. Stop if SBP <130 or DBP<60 * Resume Amlodipine, Labetalol and hydralazine. Hold ACEI/ARB * Lasix 80mg IV BID * Monitor I/O and daily weight. * Renal consult.
--- NOTE | 2019-11-28 14:47 | CONSULT ---
Consultation: REQUESTING PROVIDER: ED provider CONSULT REQUEST: We have been asked to medically evaluate this patient for (Sena). HISTORY OF PRESENT ILLNESS: 54 y/o M, pmh of CHF, ARF, HTN, HLD, DM, prior CVA, presents to the ED for worsening shortness of breath and difficulty with breathing on exertion, of few days duration that is associated with b/l LE swelling. On admission pt was found to be SOB and found to have an elevated BNP to 18,000 and Cr 2.9 from 2.4. The pt seen outpt by Dr. Hutchinson and was he states that he can now only walk several steps before becoming short of breath. He has been sleeping with head of bed up at least 60 degrees. He denied ioana chest pains. he went to see his PCP few days ago, and was sent home with a higher dose of lasix. He denies chest pain, fevers/chills, TINAJERO, vision changes, N/V, dysuria, hematuria, diarrhea, or blood in stool, or changes in sensation PHYSICAL EXAMINATION Vital Signs - 24 hr 11/28/19 10:36 Temperature 98.4 F Pulse Rate 68 Respiratory 18 Rate Blood Pressure 188/97 H O2 Sat by Pulse 96 Oximetry (%) GENERAL: Awake, alert, and fully oriented, in no acute distress. EYES: Pupils equal, round and reactive to light, extraocular movements intact, sclera anicteric EARS, NOSE, THROAT: Moist mucous membranes. LUNGS: Breath sounds equal, clear to auscultation bilaterally. No wheezes, and no crackles. HEART: Regular rate and rhythm, normal S1 and S2 without murmur, rub or gallop. ABDOMEN: Soft, nontender, not distended, normoactive bowel sounds, no guarding, no rebound, no masses. LOWER EXTREMITIES: 2+ pulses, warm, well-perfused. No calf tenderness. 1+ b/l pe ripheral edema. NEUROLOGICAL: Normal speech. Normal gait. PSYCHIATRIC: Cooperative. Good eye contact. Appropriate mood and affect. SKIN: Warm, dry, normal turgor, no rashes or lesions noted. Laboratory Results - last 24 hr 11/28/19 11/28/19 11:15 11:15 WBC 3.8 L RBC 2.83 L Hgb 7.7 L Hct 23.5 L MCV 83.3 MCH 27.1 MCHC 32.6 RDW 14.6 Plt Count 177 MPV 8.6 Absolute Neuts (auto) 2.9 Neutrophils % 75.8 Lymphocytes % 11.1 D Monocytes % 7.6 Eosinophils % 4.6 H Basophils % 0.9 Nucleated RBC % 0 Sodium 148 H Potassium 3.4 L Chloride 112 H Carbon Dioxide 28 Anion Gap 8 BUN 35.1 H Creatinine 3.0 H Est GFR (CKD-EPI)AfAm 26.09 Est GFR (CKD-EPI)NonAf 22.51 Random Glucose 155 H Calcium 8.3 L Total Bilirubin 0.4 AST 25 ALT 31 Alkaline Phosphatase 131 H Troponin I 0.02 B-Natriuretic Peptide 41887.9 H Total Protein 5.6 L Albumin 2.8 L Active Medications Generic Name Dose Route Start Last Admin Trade Name Freq PRN Reason Stop Dose Admin Amlodipine Besylate 5 mg 11/29/19 10:00 Norvasc - PO DAILY [facility] Amlodipine Besylate 5 mg 11/28/19 14:05 Norvasc - PO 11/28/19 14:06 ONCE ONE Aspirin 81 mg 11/29/19 10:00 Asa - PO DAILY [facility] Atorvastatin Calcium 40 mg 11/28/19 22:00 Lipitor - PO HS [facility] Cholecalciferol 5,000 unit 11/28/19 14:00 Vitamin D3 - PO ASDIR [facility] Furosemide 40 mg 11/28/19 22:00 Lasix Injection - IVPUSH BID [facility] Gabapentin 200 mg 11/28/19 22:00 Neurontin - PO BID [facility] Hydralazine HCl 50 mg 11/28/19 22:00 Apresoline - PO BID [facility] Hydralazine HCl 50 mg 11/28/19 14:05 Apresoline - PO 11/28/19 14:06 ONCE ONE Insulin Aspart 0 units 11/28/19 16:30 Novolog Vial SQ ACHS [facility] Protocol Labetalol HCl 400 mg 11/28/19 14:00 Normodyne - PO TID [facility] Nitroglycerin 0.5 inch 11/28/19 13:33 Nitro-Bid 2% Paste - TD 11/28/19 13:34 ONCE ONE Tamsulosin HCl 0.4 mg 11/29/19 10:00 Flomax - PO DAILY [facility] ASSESSMENT/PLAN: 54 y/o M, pmh of CHF, ARF, HTN, HLD, DM, prior CVA, presents to the ED for worsening shortness of breath and difficulty with breathing on exertion, of few days duration that is associated with b/l LE swelling is admitted for likely CHF exacerbation and SENA on CKD Impression: SENA on CKD likely 2/2 to HTN and volume overload CHF exacerbation Pulmonary edema likely 2/2 to Hypertensive urgency vs CHF exacerbation DM Hx of CVA HTN urgency Plan: r/p UA calculate FeNa and FeUrea Spot Urine Urea trend Cre monitor BP Decrease MAP by 25% to prevent hypoperfusion US Renal/Pelvis cont Lasix, no IVF monitor lytes avoid nephrotoxic agents hold off on BRITTANY Dispo: We will continue to follow the patient. Thank you for this consultative opportunity. Visit type - Emergency Visit Emergency Visit: Yes ED Registration Date: 11/28/19 Care time: The patient presented to the Emergency Department on the above date and was hospitalized for further evaluation of their emergent condition. - New Patient This patient is new to me today: Yes Date on this admission: 11/28/19 - Critical Care Critical Care patient: No ATTENDING PHYSICIAN STATEMENT I saw and evaluated the patient. I reviewed the resident's note and discussed the case with the resident. I agree with the resident's findings and plan as documented. SUBJECTIVE: OBJECTIVE: ASSESSMENT AND PLAN:
--- NOTE | 2019-11-28 15:22 | PN ---
Teaching Attending Note Name of Resident: Raymundo Muñoz (Nephrology) ATTENDING PHYSICIAN STATEMENT I saw and evaluated the patient. I reviewed the resident's note and discussed the case with the resident. I agree with the resident's findings and plan as documented. Nephrology Pt is a 54 year old male with pmhx if ckd, chf, dm, hld who presents with worsening shortness of breath. He also complains of lower ext edema that has been worsening. he denies chest pain. He denies dysuria or hematuria. He follows with Dr Samayoa. pmhx ckd chf dm cva nkda social hx denies family hx non contrib Current Medications Generic Name Dose Route Start Last Admin Trade Name Freq PRN Reason Stop Dose Admin Amlodipine Besylate 5 mg 11/29/19 10:00 Norvasc - PO DAILY [facility] Aspirin 81 mg 11/29/19 10:00 Asa - PO DAILY [facility] Atorvastatin Calcium 40 mg 11/28/19 22:00 Lipitor - PO HS [facility] Cholecalciferol 5,000 unit 11/28/19 14:00 11/28/19 14:35 Vitamin D3 - PO Not Given DAILY [facility] Furosemide 40 mg 11/28/19 14:00 11/28/19 14:35 Lasix Injection - IVPUSH 40 mg BIDLASIX [facility] Administration Gabapentin 200 mg 11/28/19 22:00 Neurontin - PO BID [facility] Hydralazine HCl 50 mg 11/28/19 22:00 Apresoline - PO BID [facility] Insulin Aspart 1 vial 11/28/19 16:30 Novolog Vial Sliding Scale - SQ ACHS [facility] Protocol Labetalol HCl 400 mg 11/28/19 14:00 11/28/19 14:35 Normodyne - PO 400 mg TID [facility] Administration Tamsulosin HCl 0.4 mg 11/29/19 08:30 Flomax - PO 0830 [facility] Laboratory Tests 08/30/19 08/31/19 11/27/19 05:35 06:00 12:35 WBC Hgb Sodium Potassium Chloride BUN Creatinine 2.2 H 2.0 H 2.9 H COVID-19 (REBEKA) 11/28/19 11/28/19 11/28/19 11:15 11:15 13:04 WBC 3.8 L Hgb 7.7 L Sodium 148 H Potassium 3.4 L Chloride 112 H BUN 35.1 H Creatinine 3.0 H COVID-19 (REBEKA) Pending cardio s1s2 pulm crackles gi soft, bs positive ext plus 3 edema neuro awake and alert skin neg rash Impression: SENA on CKD CHF exacerbation DM Hx of CVA HTN urgency hypokalemia volume overload Plan - start IV lasix - decrease map by 65 - cardio eval - check ua - trend floater operator - monitor volume status - follow official cxr read - will need admission to hospital
[2019-11-28] MEDS: INSULIN SLIDING SCALE (NOVOLOG) 1 VIAL SQ SCH ×3 (16:36→21:34)
--- NOTE | 2019-11-28 18:06 | HP ---
CHIEF COMPLAINT: shortness of breath on ambulation PCP: Dr. Griffin HISTORY OF PRESENT ILLNESS: Mr. Alcantara is a 54M w a h/o stroke 4x, TIA, CHF (EF 50% on 09/2018), CKD, HTN, DM II, BPH admitted to the emergency department at the [facility] of Dr. Hutchinson for diuresis after receiving blood work significant for a Cr of 2.9 (bl 2.4) and BNP of 19,000. The patient complains of worsening shortness of breath and lower extremity edema (3+ to mid thighs) for the past 4 days despite increased home dose of lasix by PCP. He reports 2 pillow orthopnea at night with an occasional cough. The patient reports that he is incapable of walking more than a few steps and is not able to climb one flight of stairs without tiring (NYHA CLASS III). The ED course was notable for an Xray finding of increased pulmonary congestion and a BP of 189/113. Patient was diuresed by the ED team and endorses improvement of his symptoms. Recent Travel: denies Social History: Smokin.5 packs per day Alcohol: denies Drugs: denies Allergies No Known Allergies Allergy (Verified 11/28/19 10:39) HOME MEDICATIONS: Home Medications Medication Instructions Recorded Atorvastatin Ca [Lipitor] 40 mg PO HS 07/10/17 Aspirin 81 mg PO DAILY 05/14/19 Gabapentin 200 mg PO BID 05/14/19 Furosemide [Lasix] 40 mg PO BID 11/25/19 Alogliptin Benzoate [Alogliptin] 6.25 mg PO DAILY 11/28/19 Amlodipine Besylate [Norvasc -] 5 mg PO DAILY 11/28/19 Cholecalciferol (Vitamin D3) 5,000 unit PO ASDIR 11/28/19 [Vitamin D -] Hydralazine HCl 50 mg PO BID 11/28/19 Labetalol HCl [Normodyne -] 400 mg PO TID 11/28/19 Lisinopril 5 mg PO DAILY 11/28/19 Meclizine HCl [Antivert -] 12.5 mg PO TID 11/28/19 Sodium Bicarbonate 650 mg PO BID 11/28/19 Tamsulosin HCl [Flomax] 0.4 mg PO DAILY 11/28/19 REVIEW OF SYSTEMS CONSTITUTIONAL: Absent: fever, chills, diaphoresis, generalized weakness, malaise, loss of appetite, weight change HEENT: Absent: rhinorrhea, nasal congestion, throat pain, throat swelling, difficulty swallowing, mouth swelling, ear pain, eye pain, visual changes CARDIOVASCULAR: Absent: chest pain, syncope, palpitations, irregular heart rate, lightheadedness, peripheral edema RESPIRATORY: Absent: cough, shortness of breath, dyspnea with exertion, orthopnea, wheezing, stridor, hemoptysis GASTROINTESTINAL: Absent: abdominal pain, abdominal distension, nausea, vomiting, diarrhea, constipation, melena, hematochezia GENITOURINARY: Absent: dysuria, frequency, urgency, hesitancy, hematuria, flank pain, genital pain MUSCULOSKELETAL: Absent: myalgia, arthralgia, joint swelling, back pain, neck pain SKIN: Absent: rash, itching, pallor HEMATOLOGIC/IMMUNOLOGIC: Absent: easy bleeding, easy bruising, lymphadenopathy, frequent infections ENDOCRINE: Absent: unexplained weight gain, unexplained weight loss, heat intolerance, cold intolerance NEUROLOGIC: Absent: headache, focal weakness or paresthesias, dizziness, unsteady gait, seizure, mental status changes, bladder or bowel incontinence PSYCHIATRIC: Absent: anxiety, depression, suicidal or homicidal ideation, hallucinations. PHYSICAL EXAMINATION Vital Signs - 24 hr 11/28/19 11/28/19 11/28/19 10:36 14:36 16:36 Temperature 98.4 F Pulse Rate 68 Pulse Rate [ 73 65 Apical] Respiratory 18 19 16 Rate Blood Pressure 188/97 H Blood Pressure 189/113 H 170/88 [Right Arm] O2 Sat by Pulse 96 97 96 Oximetry (%) GENERAL: Awake, alert, and fully oriented, in no acute distress. LUNGS: CRACKLES BILATERAL LOWER LUNG BASES, WHEEZING BILATERAL UPPER LUNG BASES, POOR INSPIRATORY EFFORT HEART: Regular rate and rhythm, normal S1 and S2 without murmur, rub or gallop. ABDOMEN: DISTENDED UPPER EXTREMITIES: 2+ pulses, warm, well-perfused. No cyanosis. No clubbing. No peripheral edema. LOWER EXTREMITIES: 3+ PITTING EDEMA BILATERALLY UP TO MID THIGH PSYCHIATRIC: Cooperative. Good eye contact. Appropriate mood and affect. SKIN: Warm, dry, normal turgor, no rashes or lesions noted, normal capillary refill. Laboratory Results - last 24 hr 11/28/19 11/28/19 11/28/19 11:15 11:15 16:33 WBC 3.8 L RBC 2.83 L Hgb 7.7 L Hct 23.5 L MCV 83.3 MCH 27.1 MCHC 32.6 RDW 14.6 Plt Count 177 MPV 8.6 Absolute Neuts (auto) 2.9 Neutrophils % 75.8 Lymphocytes % 11.1 D Monocytes % 7.6 Eosinophils % 4.6 H Basophils % 0.9 Nucleated RBC % 0 Retic Count 1.80 H Sodium 148 H Potassium 3.4 L Chloride 112 H Carbon Dioxide 28 Anion Gap 8 BUN 35.1 H Creatinine 3.0 H Est GFR (CKD-EPI)AfAm 26.09 Est GFR (CKD-EPI)NonAf 22.51 POC Glucometer 149 Random Glucose 155 H Calcium 8.3 L Iron 31 L TIBC 205 L Iron Saturation 15 L Unsaturated IBC 174 L Total Bilirubin 0.4 AST 25 ALT 31 Alkaline Phosphatase 131 H Troponin I 0.02 B-Natriuretic Peptide 59014.9 H Total Protein 5.6 L Albumin 2.8 L ASSESSMENT/PLAN: Mr. Alcantara is a 54M w a h/o stroke 4x, TIA, CHF (EF 50% on 09/2018), CKD, HTN, DM II, BPH admitted to the emergency department by of Dr. Hutchinson for diuresis. #ACUTE ON CHRONIC CHF EXACERBATION - ECHO EF - 55% 10/10 - cardio on consult (Dr. Farrar) - suggests nitro drip with cutoff - suggests 80IV lasix BID - Echo - telemetry transfer - Troponin trending - neg x1 - O2 supplementation nasal canula with constant monitor of O2 saturation - Lipitor 40 - Strict I/O - Daily weights #CARDIO RENAL SYNDROME - SENA on CKD stage IV in the setting of NYHA class III - BUN/Cr = 35/3 - US Renal/Pelvis - no IVF - monitor lytes - avoid nephrotoxic agents - ASA - Hold BRITTANY #DMII - A1C - Insulin sliding scale - hold home medications - BGM # DVT prophylaxis - heparin sq Visit type - Emergency Visit Emergency Visit: Yes ED Registration Date: 11/28/19 Care time: The patient presented to the Emergency Department on the above date and was hospitalized for further evaluation of their emergent condition. - New Patient This patient is new to me today: Yes Date on this admission: 11/28/19 - Critical Care Critical Care patient: No ATTENDING PHYSICIAN STATEMENT I saw and evaluated the patient. I reviewed the resident's note and discussed the case with the resident. I agree with the resident's findings and plan as documented. SUBJECTIVE: OBJECTIVE: ASSESSMENT AND PLAN:
[2019-11-28 18:53] VITALS: BMI 25.9
[2019-11-28] MEDS: NITROGLYCERIN 25MG/D5W 250ML 25 MG/250 ML ML IVPB SCH (20:26)
[2019-11-28] MEDS: GABAPENTIN 100 MG CAPSULE PO SCH (21:28)
[2019-11-28] MEDS: ATORVASTATIN CA 40 MG TABLET (FP) PO SCH (21:29)
[2019-11-29] MEDS: hydrALAZINE HCL 50 MG TABLET (FP) PO SCH ×2 (02:10→10:23)
[2019-11-29] MEDS: LABETALOL HCL 200 MG TABLET (FP) PO SCH ×4 (02:11→21:22)
[2019-11-29] MEDS: FUROSEMIDE 40 MG/4 ML INJECTABLE VIAL IVPUSH SCH ×2 (06:07→15:20)
[2019-11-29] MEDS: INSULIN SLIDING SCALE (NOVOLOG) 1 VIAL SQ SCH ×4 (06:08→22:13)
[2019-11-29 06:49] LABS: BASO % 0.7 % (0-2.0); HEMATOCRIT 22.4 % (35.4-49); HEMOGLOBIN 7.3 GM/dL (11.7-16.9); LYMPH % 13.9 % (8-40); MCH 26.9 pg (25.7-33.7); MCHC 32.7 g/dl (32.0-35.9); MEAN CELL VOLUME 82.2 fl (80-96); MEAN PLT VOLUME 8.7 fl (7.5-11.1); MONO % 7.3 % (3.8-10.2); NEUT % 74.1 % (42.8-82.8); PLATELET COUNT 203 K/MM3 (134-434); RBC 2.72 M/mm3 (4.00-5.60); RDW 14.7 % (11.9-15.9); WHITE BLOOD COUNT 5.5 K/mm3 (4.0-10.0)
[2019-11-29 07:14] LABS: ALBUMIN 2.8 g/dl (3.4-5.0); BILIRUBIN,TOTAL 0.4 mg/dL (0.2-1); BLOOD UREA NITROGEN 37.4 mg/dL (7-18); CREATININE 3.1 mg/dL (0.55-1.3); MAGNESIUM 2.1 mg/dL (1.8-2.4); PHOSPHOROUS 4.4 mg/dL (2.5-4.9); POTASSIUM 3.4 mmol/L (3.5-5.1); TOT PROT 5.6 g/dl (6.4-8.2)
[2019-11-29] MEDS ORDERED: POTASSIUM CHLORIDE TABS 20 MEQ TABLET.ER (FP) PO ONE (07:58)
[2019-11-29] MEDS: NITROGLYCERIN 25MG/D5W 250ML 25 MG/250 ML ML IVPB SCH (09:20)
--- NOTE | 2019-11-29 09:36 | PN ---
Progress Note, Physician Chief Complaint: Feeling better. Able to sleep. Subjective increase in UO but he is not collecting urine. Telem NSR History of Present Illness: 54 year old male with ho severe HTN, DM, CVA on chronic diuretic therapy and fairly new onset of renal failure. Came to ER with 1 month of increasing swelling Dyspnea with minimal effort, anorexia and orthopnea. He is compliant with his medications. Lasix was recently raised from 40mg qd to 40mg bid. without much effect. He was given Lasix 40mg IV in ER with some diuretic effect, Noted to have BP 180/100. His BP is"always elevated". There is no chest pain, prior ho CAD. Echocardiogram 09/2019 showed mild LVH EF 50% without significant valvular disease. - Current Medication List Current Medications: Active Medications Amlodipine Besylate (Norvasc -) 5 mg PO DAILY [facility] Aspirin (Asa -) 81 mg PO DAILY [facility] Atorvastatin Calcium (Lipitor -) 40 mg PO HS [facility] Last Admin: 11/28/19 21:29 Dose: 40 mg Documented by: Cholecalciferol (Vitamin D3 -) 5,000 unit PO DAILY [facility] Last Admin: 11/28/19 14:35 Dose: Not Given Documented by: Furosemide (Lasix Injection -) 80 mg IVPUSH BIDLASIX [facility] Last Admin: 11/29/19 06:07 Dose: 80 mg Documented by: Gabapentin (Neurontin -) 200 mg PO BID [facility] Last Admin: 11/28/19 21:28 Dose: 200 mg Documented by: Hydralazine HCl (Apresoline -) 50 mg PO BID [facility] Last Admin: 11/29/19 02:10 Dose: Not Given Documented by: Nitroglycerin/Dextrose (Nitroglycerin 25mg/D5w 250ml) 25 mg in 250 mls @ 18 mls/hr IVPB TITR [facility]; Protocol Last Admin: 11/29/19 09:20 Dose: 30 mcg/min, 18 mls/hr Documented by: Insulin Aspart (Novolog Vial Sliding Scale -) 1 vial SQ ACHS [facility]; Protocol Last Admin: 11/29/19 06:08 Dose: Not Given Documented by: Labetalol HCl (Normodyne -) 400 mg PO TID [facility] Last Admin: 11/29/19 06:04 Dose: 400 mg Documented by: Tamsulosin HCl (Flomax -) 0.4 mg PO 0830 [facility] - Objective Vital Signs: Vital Signs Temperature 97.4 F L 11/28/19 22:00 Pulse Rate 67 11/29/19 07:01 Respiratory Rate 20 11/29/19 07:01 Blood Pressure 165/93 11/29/19 07:01 O2 Sat by Pulse Oximetry (%) 71 L 11/29/19 02:27 Constitutional: Yes: Well Nourished, No Distress Eyes: Yes: Conjunctiva Clear HENT: Yes: Atraumatic, Normocephalic Neck: Yes: Supple, Trachea Midline Cardiovascular: Yes: Regular Rate and Rhythm, JVD Respiratory: Yes: Regular, Rales Gastrointestinal: Yes: Normal Bowel Sounds Edema: Yes Edema: LLE: 1+, RLE: 1+ (sacral edema) Labs: CBC, BMP 11/29/19 05:40 11/29/19 05:40 Problem List - Problems (1) SENA (acute kidney injury) Code(s): N17.9 - ACUTE KIDNEY FAILURE, UNSPECIFIED (2) CHF (congestive heart failure) Code(s): I50.9 - HEART FAILURE, UNSPECIFIED Qualifiers: Heart failure type: unspecified Heart failure chronicity: unspecified Qualified Code(s): I50.9 - Heart failure, unspecified (3) HTN (hypertension) Code(s): I10 - ESSENTIAL (PRIMARY) HYPERTENSION Qualifiers: Hypertension type: unspecified Qualified Code(s): I10 - Essential (primary) hypertension Assessment/Plan 54 M DM, with CKD recently diagnosed. Has severe HTN and is admitted with severe HTN, heart failure and SENA on CKD. Echocardiogram recently showed borderline EF w LVH. Pt w severe HTN. Likely acute on chronic diastolic CHF. ER Echo today reviewed by me. limited views only: normal LV function with small pericardial effusion and plethoric IVC consistent with diastolic CHF. Rec: * Responding to high dose diuresis. Still volume overloaded and hypertensive. * Repeat echocardiogram. * Reduce Nitroglycerin drip 10mcg/min then discontinue later today. * Needs BP control: Increase Amlodipine 10mg qd. Continue Hydralazine and Labetalol. May consider adding clonidine. * continue to Hold ACEI/ARB * Lasix 80mg IV BID * Monitor I/O and daily weight. * Anemia workup and treatment will be helpful for heart failure management
[2019-11-29] MEDS ORDERED: amLODIPine BESYLATE 5 MG TABLET (FP) PO SCH (10:00)
[2019-11-29] MEDS: ASPIRIN 81 MG CHEWABLE TABLETS PO SCH (10:22)
[2019-11-29] MEDS: TAMSULOSIN HCL 0.4 MG CAP PO SCH (10:22)
[2019-11-29] MEDS: CHOLECALCIFEROL (VIT D3) 1,000 UNIT (25 MCG) TABLET PO SCH (10:23)
[2019-11-29] MEDS: GABAPENTIN 100 MG CAPSULE PO SCH ×2 (10:23→21:21)
--- NOTE | 2019-11-29 13:10 | EKG ---
Test Reason : Blood Pressure : / mmHG Vent. Rate : 065 BPM Atrial Rate : 065 BPM P-R Int : 170 ms QRS Dur : 114 ms QT Int : 476 ms P-R-T Axes : 028 020 142 degrees QTc Int : 495 ms NORMAL SINUS RHYTHM PROLONGED QT ABNORMAL ECG WHEN COMPARED WITH ECG OF 29-AUG-2019 23:45, T WAVE INVERSION MORE EVIDENT IN LATERAL LEADS Confirmed by THERESA OCONNELL MD ([id number]) on 11/29/2019 1:10:01 PM Referred By: Confirmed By:THERESA OCONNELL MD
[2019-11-29] MEDS ORDERED: amLODIPine BESYLATE 5 MG TABLET (FP) PO ONE (13:40)
[2019-11-29] MEDS ORDERED: NITROGLYCERIN 25MG/D5W 250ML 25 MG/250 ML ML IVPB SCH (13:41)
--- NOTE | 2019-11-29 13:43 | PN ---
Teaching Attending Note Name of Resident: Ferny Terrell ATTENDING PHYSICIAN STATEMENT I saw and evaluated the patient. I reviewed the resident's note and discussed the case with the resident. I agree with the resident's findings and plan as documented. SUBJECTIVE: Seen and examined at bedside. Patient reports shortness of breath significant improved. Patient noted to have significant lower extremity edema to the hips bilaterally. Patient remains hypertensive in the 160s and 170s. Amlodipine dose increased to 10 mg, hydralazine increased to 15 mg 3 times daily, and nitro drip decreased to 10 mcg/min. OBJECTIVE: Last Vital Signs Temp Pulse Resp BP Pulse Ox 97.4 F L 67 20 161/92 94 L 11/28/19 22:00 11/29/19 07:01 11/29/19 09:00 11/29/19 12:00 11/29/19 09:00 PE: per resident note Labs/Imaging: reviewed ASSESSMENT AND PLAN: 54 old male with a history of stroke, TIA, CHF, CKD, hypertension, diabetes, BPH admitted with acute on chronic CHF exacerbation, SENA, and hypertensive urgency. #Acute on chronic CHF exacerbation Continue Lasix IV twice daily Blood pressure control Holding BRITTANY inhibitor due to SENA Follow-up echocardiogram Cardiology on board: Appreciate recommendations Strict I&O's, daily weights #SENA on CKD stage III Continue diuresis Hold nephrotoxic medications Hold lisinopril Nephrology on board: Appreciate recommendations #Hypertensive urgency In the setting of fluid overload with CHF and SENA -cont agressive diuresis Titrate down nitroglycerin drip Increase amlodipine to 10 mg daily Increase hydralazine 50 mg 3 times daily from twice daily Continue labetalol 400 3 times daily Holding lisinopril #History of stroke Continue aspirin and statin #BPH Continue tamsulosin
[2019-11-29] MEDS ORDERED: hydrALAZINE HCL 50 MG TABLET (FP) PO SCH (14:00)
--- NOTE | 2019-11-29 14:48 | ECHO ---
Version: 1 Name: FELICE GUY Exam: Adult Echocardiogram Study Date: 11/29/2019, 1:43 PM Age: 54 Years MMode/2D Measurements & Calculations IVSd: 1.29 cm LVIDs: 3.7 cm LVIDd: 5.7 cm LVPWd: 1.25 cm LAV (MOD-bp): 93.0 ml ACS: 1.53 cm Ao root diam: 2.9 cm LVOT diam: 1.98 cm LA dimension: 3.9 cm Doppler Measurements & Calculations MV E max ronak: 138.5 cm/sec Med E/e': 34.7 MV A max ronak: 76.8 cm/sec Med Peak E' Ronak: 4.0 cm/sec MV E/A: 1.80 Lat E/e': 16.0 Lat Peak E' Ronak: 8.7 cm/sec Ao max P.1 mmHg SONAM(I,D): 2.9 cm Ao mean P.3 mmHg LV V1 mean: 86.6 cm/sec Ao V2 max: 142.5 cm/sec LV V1 mean P.4 mmHg TR max ronak: 251.1 cm/sec TR max P.3 mmHg Left Ventricle There is moderate concentric left ventricular hypertrophy. Left ventricular systolic function is nor mal. Ejection Fraction = 50-55%. Right Ventricle The right ventricle is normal in size and function. Atria The left atrium is mildly dilated. Mitral Valve There is mild mitral valve thickening. There is no mitral valve stenosis. There is mild mitral regur gitation. Tricuspid Valve The tricuspid valve is normal in structure and function. There is mild tricuspid regurgitation. Righ t ventricular systolic pressure is normal. Aortic Valve There is moderate aortic sclerosis.;. No hemodynamically significant valvular aortic stenosis. No ao rtic regurgitation is present. Pulmonic Valve The pulmonic valve is not well seen, but is grossly normal. There is no pulmonic valvular stenosis. Trace pulmonic valvular regurgitation. Great Vessels The aortic root is normal size. Pericardium/Pleura Small pericardial effusion (<1cm). There are no echocardiographic indications of cardiac tamponade. Summary Statements There is moderate concentric left ventricular hypertrophy. Ejection Fraction = 50-55%. The left atrium is mildly dilated. There is mild mitral regurgitation. There is mild tricuspid regurgitation. There is moderate aortic sclerosis.; Small pericardial effusion (<1cm) There are no echocardiographic indications of cardiac tamponade. MD Crawford *Zoe 11/29/2019, 2:48 PM Ordering Physician: Jono Olson Referring Physician: JONO OLSON Performed By: Alisa Guaman
--- NOTE | 2019-11-29 14:55 | PN ---
Physical Exam: SUBJECTIVE: Patient seen and examined at bedside. The patient reports an improvement in breathing. Patient also reported to have mildly decreased lower extremity edema OBJECTIVE: Vital Signs Period Temp Pulse Resp BP Sys/Hanson Pulse Ox Last 24 Hr 97.4 F-97.9 F 65-113 16-20 151-183/78-100 71-96 GENERAL: The patient is awake, alert, and fully oriented, in no acute distress. LUNGS: Crackles heard bilateral lower bases HEART: Regular rate and rhythm, S1, S2 without murmur, rub or gallop. ABDOMEN: Soft, nontender, nondistended, normoactive bowel sounds, no guarding, no rebound, no hepatosplenomegaly, no masses. EXTREMITIES: 3+ pitting edema bilateral to the thighs SKIN: Warm, dry, normal turgor, no rashes or lesions noted Laboratory Results - last 24 hr 11/28/19 11/28/19 11/28/19 11:15 11:15 13:04 WBC RBC Hgb Hct MCV MCH MCHC RDW Plt Count MPV Absolute Neuts (auto) Neutrophils % Lymphocytes % Monocytes % Eosinophils % Basophils % Nucleated RBC % Retic Count 1.80 H Sodium Potassium Chloride Carbon Dioxide Anion Gap BUN Creatinine Est GFR (CKD-EPI)AfAm Est GFR (CKD-EPI)NonAf POC Glucometer Random Glucose Hemoglobin A1c % Calcium Phosphorus Magnesium Iron 31 L TIBC 205 L Iron Saturation 15 L Unsaturated IBC 174 L Ferritin Total Bilirubin AST ALT Alkaline Phosphatase Creatine Kinase Creatine Kinase Index CK-MB (CK-2) Troponin I Total Protein Albumin COVID-19 (REBEKA) Not detected 11/28/19 11/28/19 11/29/19 16:33 21:19 05:40 WBC 5.5 RBC 2.72 L Hgb 7.3 L Hct 22.4 L MCV 82.2 MCH 26.9 MCHC 32.7 RDW 14.7 Plt Count 203 MPV 8.7 Absolute Neuts (auto) 4.1 Neutrophils % 74.1 Lymphocytes % 13.9 D Monocytes % 7.3 Eosinophils % 4.0 Basophils % 0.7 Nucleated RBC % 0 Retic Count Sodium Potassium Chloride Carbon Dioxide Anion Gap BUN Creatinine Est GFR (CKD-EPI)AfAm Est GFR (CKD-EPI)NonAf POC Glucometer 149 202 Random Glucose Hemoglobin A1c % Calcium Phosphorus Magnesium Iron TIBC Iron Saturation Unsaturated IBC Ferritin Total Bilirubin AST ALT Alkaline Phosphatase Creatine Kinase Creatine Kinase Index CK-MB (CK-2) Troponin I Total Protein Albumin COVID-19 (REBEKA) 11/29/19 11/29/19 11/29/19 05:40 05:40 06:05 WBC RBC Hgb Hct MCV MCH MCHC RDW Plt Count MPV Absolute Neuts (auto) Neutrophils % Lymphocytes % Monocytes % Eosinophils % Basophils % Nucleated RBC % Retic Count Sodium 145 Potassium 3.4 L Chloride 112 H Carbon Dioxide 26 Anion Gap 8 BUN 37.4 H Creatinine 3.1 H Est GFR (CKD-EPI)AfAm 25.07 Est GFR (CKD-EPI)NonAf 21.63 POC Glucometer 87 Random Glucose 117 H Hemoglobin A1c % 6.6 H Calcium 8.0 L Phosphorus 4.4 Magnesium 2.1 Iron TIBC Iron Saturation Unsaturated IBC Ferritin 106.7 Total Bilirubin 0.4 AST 24 ALT 28 Alkaline Phosphatase 124 H Creatine Kinase 598 H Creatine Kinase Index 0.9 CK-MB (CK-2) 5.5 H Troponin I 0.02 Total Protein 5.6 L Albumin 2.8 L COVID-19 (REBEKA) 11/29/19 11:38 WBC RBC Hgb Hct MCV MCH MCHC RDW Plt Count MPV Absolute Neuts (auto) Neutrophils % Lymphocytes % Monocytes % Eosinophils % Basophils % Nucleated RBC % Retic Count Sodium Potassium Chloride Carbon Dioxide Anion Gap BUN Creatinine Est GFR (CKD-EPI)AfAm Est GFR (CKD-EPI)NonAf POC Glucometer 138 Random Glucose Hemoglobin A1c % Calcium Phosphorus Magnesium Iron TIBC Iron Saturation Unsaturated IBC Ferritin Total Bilirubin AST ALT Alkaline Phosphatase Creatine Kinase Creatine Kinase Index CK-MB (CK-2) Troponin I Total Protein Albumin COVID-19 (REBEKA) Active Medications Generic Name Dose Route Start Last Admin Trade Name Freq PRN Reason Stop Dose Admin Amlodipine Besylate 10 mg 11/29/19 13:39 Norvasc - PO DAILY [facility] Amlodipine Besylate 5 mg 11/29/19 13:40 Norvasc - PO 11/29/19 13:41 ONCE ONE Aspirin 81 mg 11/29/19 10:00 11/29/19 10:22 Asa - PO 81 mg DAILY [facility] Administration Atorvastatin Calcium 40 mg 11/28/19 22:00 11/28/19 21:29 Lipitor - PO 40 mg HS [facility] Administration Cholecalciferol 5,000 unit 11/28/19 14:00 11/29/19 10:23 Vitamin D3 - PO 5,000 unit DAILY [facility] Administration Furosemide 80 mg 11/29/19 06:00 11/29/19 06:07 Lasix Injection - IVPUSH 80 mg BIDLASIX [facility] Administration Gabapentin 200 mg 11/28/19 22:00 11/29/19 10:23 Neurontin - PO 200 mg BID [facility] Administration Hydralazine HCl 50 mg 11/29/19 14:00 Apresoline - PO TID [facility] Nitroglycerin/Dextrose 25 mg in 250 mls @ 6 mls/hr 11/29/19 13:41 Nitroglycerin 25mg/D5w 250ml IVPB TITR [facility] Protocol 10 MCG/MIN Insulin Aspart 1 vial 11/28/19 16:30 11/29/19 11:40 Novolog Vial Sliding Scale - SQ Not Given ACHS [facility] Protocol Labetalol HCl 400 mg 11/28/19 14:00 11/29/19 06:04 Normodyne - PO 400 mg TID [facility] Administration Tamsulosin HCl 0.4 mg 11/29/19 08:30 11/29/19 10:22 Flomax - PO 0.4 mg 0830 [facility] Administration ASSESSMENT/PLAN: Mr. Alcantara is a 54M w a h/o stroke 4x, TIA, CHF (EF 50% on 09/2018), CKD, HTN, DM II, BPH admitted to the emergency department by of Dr. Hutchinson for diuresis. #Acute on chronic CHF exacerbation - ECHO EF - 55% 10/10 - LATEST ECHO - EF 50-55% 11/29/2019 - cardio on consult (Dr. Farrar) - Nitro drip 25mg - 80IV lasix BID Strict I&O's, daily weights #SENA on CKD stage III Nephrology (Dr. Hutchinson) - Continue diuresis Hold nephrotoxic medications Lisinopril held due to SENA #Hypertensive urgency - IV lasix 80mg BID Nitro drip 25mg from 50 - amlodipine 10 mg daily - hydralazine 50 mg BID from TID Labetalol 400mg TID #HLD - Home lipitor 40mg #DMII - A1C - Insulin sliding scale - hold home medications - BGM # DVT prophylaxis - heparin sq #BPH Continue tamsulosin Visit type - Emergency Visit Emergency Visit: Yes ED Registration Date: 11/28/19 Care time: The patient presented to the Emergency Department on the above date and was hospitalized for further evaluation of their emergent condition. - New Patient This patient is new to me today: No - Critical Care Critical Care patient: No - Discharge Referral Referred to [facility] No ATTENDING PHYSICIAN STATEMENT I saw and evaluated the patient. I reviewed the resident's note and discussed the case with the resident. I agree with the resident's findings and plan as documented. SUBJECTIVE: OBJECTIVE: ASSESSMENT AND PLAN:
[2019-11-29] MEDS ORDERED: POTASSIUM CHLORIDE ORAL LIQUID 20 MEQ/15 ML PO ONE (17:23)
--- NOTE | 2019-11-29 17:25 | PN ---
Progress Note, Physician History of Present Illness: Pt seen and examined at bedside. He says that his breathing is much better. He also notes that his edema is improving. He denies chest pain. - Current Medication List Current Medications: Active Medications Amlodipine Besylate (Norvasc -) 10 mg PO DAILY [facility] Aspirin (Asa -) 81 mg PO DAILY [facility] Last Admin: 11/29/19 10:22 Dose: 81 mg Documented by: Atorvastatin Calcium (Lipitor -) 40 mg PO HS [facility] Last Admin: 11/28/19 21:29 Dose: 40 mg Documented by: Cholecalciferol (Vitamin D3 -) 5,000 unit PO DAILY [facility] Last Admin: 11/29/19 10:23 Dose: 5,000 unit Documented by: Furosemide (Lasix Injection -) 80 mg IVPUSH BIDLASIX [facility] Last Admin: 11/29/19 15:20 Dose: 80 mg Documented by: Gabapentin (Neurontin -) 200 mg PO BID [facility] Last Admin: 11/29/19 10:23 Dose: 200 mg Documented by: Hydralazine HCl (Apresoline -) 75 mg PO TID [facility] Nitroglycerin/Dextrose (Nitroglycerin 25mg/D5w 250ml) 25 mg in 250 mls @ 6 mls/hr IVPB TITR [facility]; Protocol Last Titration: 11/29/19 15:21 Dose: 40 mcg/min, 24 mls/hr Documented by: Insulin Aspart (Novolog Vial Sliding Scale -) 1 vial SQ ACHS [facility]; Protocol Last Admin: 11/29/19 11:40 Dose: Not Given Documented by: Labetalol HCl (Normodyne -) 400 mg PO TID [facility] Last Admin: 11/29/19 15:20 Dose: 400 mg Documented by: Tamsulosin HCl (Flomax -) 0.4 mg PO 0830 [facility] Last Admin: 11/29/19 10:22 Dose: 0.4 mg Documented by: - Objective Vital Signs: Vital Signs Temperature 98.1 F 11/29/19 17:07 Pulse Rate 69 11/29/19 17:07 Respiratory Rate 18 11/29/19 17:07 Blood Pressure 155/87 11/29/19 17:07 O2 Sat by Pulse Oximetry (%) 94 L 11/29/19 09:00 Constitutional: Yes: Calm Eyes: Yes: Conjunctiva Clear HENT: Yes: Atraumatic Neck: Yes: Supple Cardiovascular: Yes: S1, S2 Respiratory: Yes: On Nasal O2 Gastrointestinal: Yes: Soft Genitourinary: Yes: WNL Musculoskeletal: Yes: WNL Edema: Yes Edema: LLE: 2+, RLE: 2+ Neurological: Yes: Oriented Psychiatric: Yes: Oriented Labs: CBC, BMP 11/29/19 05:40 11/29/19 05:40 Assessment/Plan Current Medications Generic Name Dose Route Start Last Admin Trade Name Tamia PRN Reason Stop Dose Admin Amlodipine Besylate 10 mg 11/29/19 13:39 Norvasc - PO DAILY [facility] Aspirin 81 mg 11/29/19 10:00 11/29/19 10:22 Asa - PO 81 mg DAILY [facility] Administration Atorvastatin Calcium 40 mg 11/28/19 22:00 11/28/19 21:29 Lipitor - PO 40 mg HS [facility] Administration Cholecalciferol 5,000 unit 11/28/19 14:00 11/29/19 10:23 Vitamin D3 - PO 5,000 unit DAILY [facility] Administration Furosemide 80 mg 11/29/19 06:00 11/29/19 15:20 Lasix Injection - IVPUSH 80 mg BIDLASIX [facility] Administration Gabapentin 200 mg 11/28/19 22:00 11/29/19 10:23 Neurontin - PO 200 mg BID [facility] Administration Hydralazine HCl 75 mg 11/29/19 22:00 Apresoline - PO TID [facility] Nitroglycerin/Dextrose 25 mg in 250 mls @ 6 mls/hr 11/29/19 13:41 11/29/19 15:21 Nitroglycerin 25mg/D5w 250ml IVPB 40 mcg/min TITR [facility] 24 mls/hr Titration Protocol 10 MCG/MIN Insulin Aspart 1 vial 11/28/19 16:30 11/29/19 11:40 Novolog Vial Sliding Scale - SQ Not Given ACHS [facility] Protocol Labetalol HCl 400 mg 11/28/19 14:00 11/29/19 15:20 Normodyne - PO 400 mg TID [facility] Administration Potassium Chloride 40 meq 11/29/19 17:23 Potassium Chloride Oral Liquid PO 11/29/19 17:24 ONCE ONE Tamsulosin HCl 0.4 mg 11/29/19 08:30 11/29/19 10:22 Flomax - PO 0.4 mg 0830 [facility] Administration Impression: SENA on CKD CHF exacerbation DM Hx of CVA HTN urgency hypokalemia volume overload Plan - cont lasix - replace potassium - bp is improving - follow ultrasound - cont to monitor renal function - monitor lytes - reviewed echo report
[2019-11-29] MEDS: MECLIZINE HCL 12.5 MG TABLET PO SCH (21:21)
[2019-11-29] MEDS: ATORVASTATIN CA 40 MG TABLET (FP) PO SCH (21:21)
[2019-11-29] MEDS: hydrALAZINE HCL 25 MG TABLET (FP) PO SCH (22:36)
[2019-11-30] MEDS: LABETALOL HCL 200 MG TABLET (FP) PO SCH ×3 (06:13→21:53)
[2019-11-30] MEDS: hydrALAZINE HCL 25 MG TABLET (FP) PO SCH ×3 (06:13→21:52)
[2019-11-30] MEDS: FUROSEMIDE 40 MG/4 ML INJECTABLE VIAL IVPUSH SCH ×2 (06:13→13:44)
[2019-11-30] MEDS: MECLIZINE HCL 12.5 MG TABLET PO SCH ×3 (06:14→21:53)
[2019-11-30] MEDS: INSULIN SLIDING SCALE (NOVOLOG) 1 VIAL SQ SCH ×4 (06:14→21:54)
[2019-11-30 06:52] LABS: HEMATOCRIT 22.5 % (35.4-49); HEMOGLOBIN 7.4 GM/dL (11.7-16.9); MCH 27.2 pg (25.7-33.7); MCHC 32.7 g/dl (32.0-35.9); MEAN CELL VOLUME 83.2 fl (80-96); MEAN PLT VOLUME 8.8 fl (7.5-11.1); PLATELET COUNT 183 K/MM3 (134-434); RBC 2.71 M/mm3 (4.00-5.60); RDW 14.4 % (11.9-15.9)
[2019-11-30 07:06] LABS: BLOOD UREA NITROGEN 41.9 mg/dL (7-18); CALCIUM 8.1 mg/dL (8.5-10.1); CREATININE 3.2 mg/dL (0.55-1.3); MAGNESIUM 2.1 mg/dL (1.8-2.4); PHOSPHOROUS 5.1 mg/dL (2.5-4.9); POTASSIUM 3.7 mmol/L (3.5-5.1)
[2019-11-30] MEDS ORDERED: POTASSIUM CHLORIDE TABS 20 MEQ TABLET.ER (FP) PO ONE (07:59)
[2019-11-30] MEDS: TAMSULOSIN HCL 0.4 MG CAP PO SCH (09:20)
[2019-11-30] MEDS: cloNIDine HCL 0.1 MG TABLET PO SCH ×3 (09:21→21:52)
[2019-11-30] MEDS: amLODIPine BESYLATE 10 MG TABLET (FP) PO SCH (09:22)
[2019-11-30] MEDS: ASPIRIN 81 MG CHEWABLE TABLETS PO SCH (09:22)
[2019-11-30] MEDS: CHOLECALCIFEROL (VIT D3) 1,000 UNIT (25 MCG) TABLET PO SCH (09:22)
[2019-11-30] MEDS: GABAPENTIN 100 MG CAPSULE PO SCH ×2 (09:23→21:53)
[2019-11-30] MEDS ORDERED: amLODIPine BESYLATE 10 MG TABLET (FP) PO SCH (10:00)
--- NOTE | 2019-11-30 11:05 | PN ---
Progress Note (short form) - Note Progress Note: SUBJECTIVE: Seen and examined at bedside. Patient denies shortness of breath. Blood pressure has improved. Started clonidine and discontinued nitro drip. Edema has decreased and now is just above the knees bilaterally. OBJECTIVE: Last Vital Signs Temp Pulse Resp BP Pulse Ox 98.1 F 65 20 140/90 97 11/30/19 08:29 11/30/19 08:29 11/30/19 08:32 11/30/19 08:29 11/30/19 08:32 PE: GEN: NAD HEENT: NC/AT [facility] RESP: CTAB CARDS: RRR, -MRG ABD: soft, nt/nd +BS EXT: 3+ edema to just above knees bilaterally Neuro: Non-focal, A&OX3 Labs/Imaging: reviewed ASSESSMENT AND PLAN: 54 old male with a history of stroke, TIA, CHF, CKD, hypertension, diabetes, BPH admitted with acute on chronic CHF exacerbation, SENA, and hypertensive urgency. #Acute on chronic CHF exacerbation Continue Lasix IV twice daily Blood pressure control Holding BRITTANY inhibitor due to SENA Follow-up echocardiogram Cardiology on board: Appreciate recommendations Strict I&O's, daily weights -replete lytes #SENA on CKD stage III Continue diuresis Hold nephrotoxic medications Hold lisinopril Nephrology on board: Appreciate recommendations #Hypertensive urgency: improving In the setting of fluid overload with CHF and SENA -cont agressive diuresis DC nitro drip Increase amlodipine to 10 mg daily Increase hydralazine 75mg 3 times daily Continue labetalol 400 3 times daily -started clonidine 0.1 BID Holding lisinopril #History of stroke Continue aspirin and statin #BPH Continue tamsulosin Visit type - Emergency Visit Emergency Visit: Yes ED Registration Date: 11/28/19 Care time: The patient presented to the Emergency Department on the above date and was hospitalized for further evaluation of their emergent condition. - New Patient This patient is new to me today: No - Critical Care Critical Care patient: No
--- NOTE | 2019-11-30 12:41 | PN ---
Progress Note, Physician Chief Complaint: Shortness of breath History of Present Illness: Seen and examined at the bedside awake and alert feels better swelling much improved making a lot of urine no fever, chills, N/V/D - Current Medication List Current Medications: Active Medications Amlodipine Besylate (Norvasc -) 10 mg PO DAILY [facility] Last Admin: 11/30/19 09:22 Dose: 10 mg Documented by: Aspirin (Asa -) 81 mg PO DAILY [facility] Last Admin: 11/30/19 09:22 Dose: 81 mg Documented by: Atorvastatin Calcium (Lipitor -) 40 mg PO HS [facility] Last Admin: 11/29/19 21:21 Dose: 40 mg Documented by: Cholecalciferol (Vitamin D3 -) 5,000 unit PO DAILY [facility] Last Admin: 11/30/19 09:22 Dose: 5,000 unit Documented by: Clonidine (Catapres -) 0.1 mg PO BID [facility] Last Admin: 11/30/19 09:21 Dose: 0.1 mg Documented by: Furosemide (Lasix Injection -) 80 mg IVPUSH BIDLASIX [facility] Last Admin: 11/30/19 06:13 Dose: 80 mg Documented by: Gabapentin (Neurontin -) 200 mg PO BID [facility] Last Admin: 11/30/19 09:23 Dose: 200 mg Documented by: Hydralazine HCl (Apresoline -) 75 mg PO TID [facility] Last Admin: 11/30/19 06:13 Dose: 75 mg Documented by: Insulin Aspart (Novolog Vial Sliding Scale -) 1 v[facility]Q [facility]; Protocol Last Admin: 11/30/19 11:55 Dose: Not Given Documented by: Labetalol HCl (Normodyne -) 400 mg PO TID [facility] Last Admin: 11/30/19 06:13 Dose: 400 mg Documented by: Meclizine HCl (Antivert -) 12.5 mg PO TID [facility] Last Admin: 11/30/19 06:14 Dose: 12.5 mg Documented by: Tamsulosin HCl (Flomax -) 0.4 mg PO 829 [facility] Last Admin: 11/30/19 09:20 Dose: 0.4 mg Documented by: - Objective Vital Signs: Vital Signs Temperature 98.1 F 11/30/19 08:29 Pulse Rate 65 11/30/19 08:29 Respiratory Rate 20 11/30/19 08:32 Blood Pressure 140/90 11/30/19 08:29 O2 Sat by Pulse Oximetry (%) 97 11/30/19 08:32 Constitutional: Yes: No Distress, Calm HENT: Yes: Atraumatic Neck: Yes: Supple Cardiovascular: Yes: Regular Rate and Rhythm Respiratory: Yes: Diminished. No: Rales, Rhonchi Gastrointestinal: Yes: Soft Extremities: No: Cyanosis Edema: No Neurological: Yes: Alert Labs: CBC, BMP 11/30/19 06:15 11/30/19 06:15 Assessment/Plan Impression: SENA on CKD CHF exacerbation DM Hx of CVA HTN urgency hypokalemia volume overload Plan Renal function stable, remains slightly worse then previous admission Continue IV Lasix BID as pt appears to be having an effective duresis continue to trend renal function and electrolytes daily Iron saturation is low, will give IV venofer today Thank you Semaj Wesley DO
--- NOTE | 2019-11-30 14:44 | PN ---
Progress Note, Physician Chief Complaint: Dyspnea History of Present Illness: This is a 54 year old male with ho severe HTN, DM, CVA on chronic diuretic therapy and fairly new onset of renal failure. Came to ER with 1 month of increasing swelling Dyspnea with minimal effort, anorexia and orthopnea. He is compliant with his medications. Lasix was recently raised from 40mg qd to 40mg bid. without much effect. He was given Lasix 40mg IV in ER with some diuretic effect, Noted to have BP 180/100. His BP is"always elevated". There is no chest pain, prior ho CAD. Echocardiogram 09/2019 showed mild LVH EF 50% without significant valvular disease. - Current Medication List Current Medications: Active Medications Amlodipine Besylate (Norvasc -) 10 mg PO DAILY [facility] Last Admin: 11/30/19 09:22 Dose: 10 mg Documented by: Aspirin (Asa -) 81 mg PO DAILY [facility] Last Admin: 11/30/19 09:22 Dose: 81 mg Documented by: Atorvastatin Calcium (Lipitor -) 40 mg PO HS [facility] Last Admin: 11/29/19 21:21 Dose: 40 mg Documented by: Cholecalciferol (Vitamin D3 -) 5,000 unit PO DAILY [facility] Last Admin: 11/30/19 09:22 Dose: 5,000 unit Documented by: Clonidine (Catapres -) 0.1 mg PO BID [facility] Last Admin: 11/30/19 09:21 Dose: 0.1 mg Documented by: Furosemide (Lasix Injection -) 80 mg IVPUSH BIDLASIX [facility] Last Admin: 11/30/19 13:44 Dose: 80 mg Documented by: Gabapentin (Neurontin -) 200 mg PO BID [facility] Last Admin: 11/30/19 09:23 Dose: 200 mg Documented by: Hydralazine HCl (Apresoline -) 75 mg PO TID [facility] Last Admin: 11/30/19 13:44 Dose: 75 mg Documented by: Insulin Aspart (Novolog Vial Sliding Scale -) 1 vial SQ [facility]; Protocol Last Admin: 11/30/19 11:55 Dose: Not Given Documented by: Labetalol HCl (Normodyne -) 400 mg PO TID [facility] Last Admin: 11/30/19 13:43 Dose: 400 mg Documented by: Meclizine HCl (Antivert -) 12.5 mg PO TID [facility] Last Admin: 11/30/19 13:44 Dose: 12.5 mg Documented by: Tamsulosin HCl (Flomax -) 0.4 mg PO 0830 [facility] Last Admin: 11/30/19 09:20 Dose: 0.4 mg Documented by: - Objective Vital Signs: Vital Signs Temperature 98.1 F 11/30/19 08:29 Pulse Rate 74 11/30/19 12:30 Respiratory Rate 20 11/30/19 08:32 Blood Pressure 174/98 H 11/30/19 12:30 O2 Sat by Pulse Oximetry (%) 97 11/30/19 08:32 Constitutional: Yes: No Distress Cardiovascular: Yes: Regular Rate and Rhythm, JVD, S1, S2 Respiratory: Yes: CTA Bilaterally, Rales Gastrointestinal: Yes: Soft Edema: Yes Edema: LLE: 1+, RLE: 1+ Neurological: Yes: Alert, Oriented Labs: CBC, BMP 11/30/19 06:15 11/30/19 06:15 Assessment/Plan 54 M DM, with CKD recently diagnosed. Has severe HTN and is admitted with severe HTN, heart failure and SENA on CKD. Echocardiogram recently showed borderline EF w LVH. Pt w severe HTN. Likely acute on chronic diastolic CHF. ER Echo 11/29/2019 limited views only: normal LV function with small pericardial effusion and plethoric IVC consistent with diastolic CHF. CHF Acute on chronic diastolic CHF Continue Laxis 80 mg IVSS BID Follow I's/O's/Lytes/Wt's HTN Current BP is 174/98 mmHg Continue Amlodipine 10 mg PO daily Clonidine 0.1 mg PO BID Hydralazine 75 mg PO TID Labetalol 400 mg PO TID Hold BRITTANY/ARB Can uptritrate Clonidine to 0.1 mg TID
[2019-11-30] MEDS: ATORVASTATIN CA 40 MG TABLET (FP) PO SCH (21:53)
[2019-12-01] MEDS: FUROSEMIDE 40 MG/4 ML INJECTABLE VIAL IVPUSH SCH ×2 (06:10→14:28)
[2019-12-01] MEDS: LABETALOL HCL 200 MG TABLET (FP) PO SCH ×3 (06:10→22:15)
[2019-12-01] MEDS: INSULIN SLIDING SCALE (NOVOLOG) 1 VIAL SQ SCH ×3 (06:11→17:12)
[2019-12-01] MEDS: hydrALAZINE HCL 25 MG TABLET (FP) PO SCH ×3 (06:12→22:13)
[2019-12-01] MEDS: MECLIZINE HCL 12.5 MG TABLET PO SCH ×3 (06:13→22:14)
[2019-12-01 06:39] LABS: BASO % 0.8 % (0-2.0); EOS % 5.2 % (0-4.5); HEMATOCRIT 20.5 % (35.4-49); LYMPH % 20.9 % (8-40); MCH 26.8 pg (25.7-33.7); MCHC 32.9 g/dl (32.0-35.9); MEAN CELL VOLUME 81.5 fl (80-96); MEAN PLT VOLUME 8.4 fl (7.5-11.1); MONO % 8.8 % (3.8-10.2); NEUT % 64.3 % (42.8-82.8); PLATELET COUNT 187 K/MM3 (134-434); RBC 2.52 M/mm3 (4.00-5.60); RDW 14.3 % (11.9-15.9); WHITE BLOOD COUNT 4.6 K/mm3 (4.0-10.0)
[2019-12-01 07:08] LABS: BLOOD UREA NITROGEN 49.2 mg/dL (7-18); CALCIUM 8.5 mg/dL (8.5-10.1); CREATININE 3.5 mg/dL (0.55-1.3); MAGNESIUM 2.2 mg/dL (1.8-2.4)
[2019-12-01 07:28] LABS: HEMOGLOBIN 6.8 GM/dL (11.7-16.9)
[2019-12-01] MEDS: cloNIDine HCL 0.1 MG TABLET PO SCH ×3 (09:42→22:14)
[2019-12-01] MEDS: amLODIPine BESYLATE 10 MG TABLET (FP) PO SCH (09:43)
[2019-12-01] MEDS: ASPIRIN 81 MG CHEWABLE TABLETS PO SCH (09:43)
[2019-12-01] MEDS: TAMSULOSIN HCL 0.4 MG CAP PO SCH (09:43)
[2019-12-01] MEDS: GABAPENTIN 100 MG CAPSULE PO SCH ×2 (09:43→22:12)
[2019-12-01] MEDS: CHOLECALCIFEROL (VIT D3) 1,000 UNIT (25 MCG) TABLET PO SCH (09:43)
--- NOTE | 2019-12-01 12:16 | PN ---
Progress Note, Physician Chief Complaint: Shortness of breath History of Present Illness: Seen and examined at the bedside awake and alert feels better shortness of breath improved making urine currently getting PRBC - Current Medication List Current Medications: Active Medications Amlodipine Besylate (Norvasc -) 10 mg PO DAILY [facility] Last Admin: 12/01/19 09:43 Dose: 10 mg Documented by: Aspirin (Asa -) 81 mg PO DAILY [facility] Last Admin: 12/01/19 09:43 Dose: 81 mg Documented by: Atorvastatin Calcium (Lipitor -) 40 mg PO HS [facility] Last Admin: 11/30/19 21:53 Dose: 40 mg Documented by: Cholecalciferol (Vitamin D3 -) 5,000 unit PO DAILY [facility] Last Admin: 12/01/19 09:43 Dose: 5,000 unit Documented by: Clonidine (Catapres -) 0.1 mg PO BID [facility] Last Admin: 12/01/19 09:42 Dose: 0.1 mg Documented by: Furosemide (Lasix Injection -) 80 mg IVPUSH BIDLASIX [facility] Last Admin: 12/01/19 06:10 Dose: 80 mg Documented by: Gabapentin (Neurontin -) 200 mg PO BID [facility] Last Admin: 12/01/19 09:43 Dose: 200 mg Documented by: Hydralazine HCl (Apresoline -) 75 mg PO TID [facility] Last Admin: 12/01/19 06:12 Dose: 75 mg Documented by: Insulin Aspart (Novolog Vial Sliding Scale -) 1 vial SQ [facility]; Protocol Last Admin: 12/01/19 12:09 Dose: Not Given Documented by: Labetalol HCl (Normodyne -) 400 mg PO TID [facility] Last Admin: 12/01/19 06:10 Dose: 400 mg Documented by: Meclizine HCl (Antivert -) 12.5 mg PO TID [facility] Last Admin: 12/01/19 06:13 Dose: 12.5 mg Documented by: Tamsulosin HCl (Flomax -) 0.4 mg PO 829 [facility] Last Admin: 12/01/19 09:43 Dose: 0.4 mg Documented by: - Objective Vital Signs: Vital Signs Temperature 97.7 F 12/01/19 10:00 Pulse Rate 64 12/01/19 10:00 Respiratory Rate 18 12/01/19 10:00 Blood Pressure 160/91 12/01/19 10:00 O2 Sat by Pulse Oximetry (%) 98 12/01/19 10:00 Constitutional: Yes: No Distress, Calm HENT: Yes: Atraumatic Neck: Yes: Supple Cardiovascular: Yes: Regular Rate and Rhythm Respiratory: Yes: Regular, Diminished Extremities: No: Cyanosis Edema: Yes Edema: LLE: Trace, RLE: Trace Neurological: Yes: Alert, Oriented Labs: CBC, BMP 12/01/19 06:10 12/01/19 06:10 Assessment/Plan Impression: SENA on CKD CHF exacerbation DM Hx of CVA HTN urgency hypokalemia volume overload Plan Cr up to 3.5 today in setting of IV Lasix maintain IV BID Lasix for now as pt is clinically improving and also getting PRBC transfusion If Cr trends up on AM labs may need to reduce diuretic dose continue to trend renal function and electrolytes daily Getting PRBC transfusion today s/p Kelsey yesterday Thank you Semaj Wesley DO
[2019-12-01] MEDS ORDERED: FERROUS SO4 325 MG TABLET (FP) PO ONE (13:57)
--- NOTE | 2019-12-01 13:58 | PN ---
Teaching Attending Note Name of Resident: Ferny Terrell ATTENDING PHYSICIAN STATEMENT I saw and evaluated the patient. I reviewed the resident's note and discussed the case with the resident. I agree with the resident's findings and plan as documented. SUBJECTIVE: pt seen and examined at bedside, denies complains OBJECTIVE: Last Vital Signs Temp Pulse Resp BP Pulse Ox 97.7 F 64 18 160/91 98 12/01/19 10:00 12/01/19 10:00 12/01/19 10:00 12/01/19 10:00 12/01/19 10:00 CBCD WBC 4.6 K/mm3 (4.0-10.0) 12/01/19 06:10 RBC 2.52 M/mm3 (4.00-5.60) L 12/01/19 06:10 Hgb 6.8 GM/dL (11.7-16.9) L* 12/01/19 06:10 Hct 20.5 % (35.4-49) L 12/01/19 06:10 MCV 81.5 fl (80-96) 12/01/19 06:10 MCHC 32.9 g/dl (32.0-35.9) 12/01/19 06:10 RDW 14.3 % (11.9-15.9) 12/01/19 06:10 Plt Count 187 K/MM3 (134-434) 12/01/19 06:10 MPV 8.4 fl (7.5-11.1) 12/01/19 06:10 CMP Sodium 143 mmol/L (136-145) 12/01/19 06:10 Potassium 4.0 mmol/L (3.5-5.1) 12/01/19 06:10 Chloride 111 mmol/L (98-107) H 12/01/19 06:10 Carbon Dioxide 28 mmol/L (21-32) 12/01/19 06:10 Anion Gap 5 MMOL/L (8-16) L 12/01/19 06:10 BUN 49.2 mg/dL (7-18) H 12/01/19 06:10 Creatinine 3.5 mg/dL (0.55-1.3) H 12/01/19 06:10 Calcium 8.5 mg/dL (8.5-10.1) 08/09/20 06:10 Total Bilirubin 0.4 mg/dL (0.2-1) 11/29/19 05:40 AST 24 U/L (15-37) 11/29/19 05:40 ALT 28 U/L (13-61) 11/29/19 05:40 Alkaline Phosphatase 124 U/L (45-117) H 11/29/19 05:40 Total Protein 5.6 g/dl (6.4-8.2) L 11/29/19 05:40 Albumin 2.8 g/dl (3.4-5.0) L 11/29/19 05:40 Active Medications Amlodipine Besylate (Norvasc -) 10 mg PO DAILY [facility] Last Admin: 12/01/19 09:43 Dose: 10 mg Documented by: Aspirin (Asa -) 81 mg PO DAILY [facility] Last Admin: 12/01/19 09:43 Dose: 81 mg Documented by: Atorvastatin Calcium (Lipitor -) 40 mg PO HS [facility] Last Admin: 11/30/19 21:53 Dose: 40 mg Documented by: Cholecalciferol (Vitamin D3 -) 5,000 unit PO DAILY [facility] Last Admin: 12/01/19 09:43 Dose: 5,000 unit Documented by: Clonidine (Catapres -) 0.1 mg PO BID [facility] Last Admin: 12/01/19 09:42 Dose: 0.1 mg Documented by: Docusate Sodium (Colace -) 200 mg PO DAILY [facility] Furosemide (Lasix Injection -) 80 mg IVPUSH BIDLASIX [facility] Last Admin: 12/01/19 06:10 Dose: 80 mg Documented by: Gabapentin (Neurontin -) 200 mg PO BID [facility] Last Admin: 12/01/19 09:43 Dose: 200 mg Documented by: Hydralazine HCl (Apresoline -) 75 mg PO TID [facility] Last Admin: 12/01/19 06:12 Dose: 75 mg Documented by: Insulin Aspart (Novolog Vial Sliding Scale -) 1 vial SQ [facility]; Protocol Last Admin: 12/01/19 12:09 Dose: Not Given Documented by: Labetalol HCl (Normodyne -) 400 mg PO TID [facility] Last Admin: 12/01/19 06:10 Dose: 400 mg Documented by: Meclizine HCl (Antivert -) 12.5 mg PO TID [facility] Last Admin: 12/01/19 06:13 Dose: 12.5 mg Documented by: Senna (Senna -) 1 tab PO HS [facility] Tamsulosin HCl (Flomax -) 0.4 mg PO 0830 [facility] Last Admin: 12/01/19 09:43 Dose: 0.4 mg Documented by: ASSESSMENT AND PLAN: 54 old male with a history of stroke, TIA, CHF, CKD, hypertension, diabetes, BPH admitted with acute on chronic CHF exacerbation, SENA, and hypertensive urgency. #Acute on chronic HFpEF -Continue Lasix IV -uncontrolled HTN, increased clonidine 0.1 TID -D/c ACEi due to SENA -Strict I&O's, daily weights -cardiology following #SENA on CKD -Creat went up, Continue diuresis -Hold nephrotoxic medications -nephrology following #Anemia - probably multifactorial: inflammatory vs blood loss vs HARINDER -arrived with hg 7.7 (unknown baseline), low TIBC, Ferritin 174 -today 6.8 -obtain FOBT -got transfused today -trend H&H, added ferritin+VitC -if GI bleed ruled out will need work up as outpatient since he already received transfusion HTN H/o stroke BPH
--- NOTE | 2019-12-01 14:10 | PN ---
Physical Exam: SUBJECTIVE: Patient seen and examined at bedside. The patient reports an improvement in breathing. Patient also reported to have mildly decreased lower extremity edema. OBJECTIVE: Vital Signs Period Temp Pulse Resp BP Sys/Hanson Pulse Ox Last 24 Hr 97.7 F-98 F 64-68 18-20 156-170/88-96 97-99 GENERAL: The patient is awake, alert, and fully oriented, in no acute distress. LUNGS: IMPROVED - clear to auscultation bl HEART: Regular rate and rhythm, S1, S2 without murmur, rub or gallop. ABDOMEN: Soft, nontender, nondistended, normoactive bowel sounds, no guarding, no rebound, no hepatosplenomegaly, no masses. EXTREMITIES: 3+ pitting edema bilateral to the thighs SKIN: Warm, dry, normal turgor, no rashes or lesions noted Laboratory Results - last 24 hr 11/30/19 11/30/19 12/01/19 17:05 21:08 05:25 WBC RBC Hgb Hct MCV MCH MCHC RDW Plt Count MPV Absolute Neuts (auto) Neutrophils % Lymphocytes % Monocytes % Eosinophils % Basophils % Nucleated RBC % Sodium Potassium Chloride Carbon Dioxide Anion Gap BUN Creatinine Est GFR (CKD-EPI)AfAm Est GFR (CKD-EPI)NonAf POC Glucometer 132 150 124 Random Glucose Calcium Magnesium Blood Type Antibody Screen Crossmatch 12/01/19 12/01/19 12/01/19 06:10 06:10 08:10 WBC 4.6 RBC 2.52 L Hgb 6.8 L* Hct 20.5 L MCV 81.5 MCH 26.8 MCHC 32.9 RDW 14.3 Plt Count 187 MPV 8.4 Absolute Neuts (auto) 3.0 Neutrophils % 64.3 Lymphocytes % 20.9 D Monocytes % 8.8 Eosinophils % 5.2 H Basophils % 0.8 Nucleated RBC % 0 Sodium 143 Potassium 4.0 Chloride 111 H Carbon Dioxide 28 Anion Gap 5 L BUN 49.2 H Creatinine 3.5 H Est GFR (CKD-EPI)AfAm 21.65 Est GFR (CKD-EPI)NonAf 18.68 POC Glucometer Random Glucose 139 H Calcium 8.5 Magnesium 2.2 Blood Type A POSITIVE Antibody Screen Negative Crossmatch See Detail 12/01/19 12:03 WBC RBC Hgb Hct MCV MCH MCHC RDW Plt Count MPV Absolute Neuts (auto) Neutrophils % Lymphocytes % Monocytes % Eosinophils % Basophils % Nucleated RBC % Sodium Potassium Chloride Carbon Dioxide Anion Gap BUN Creatinine Est GFR (CKD-EPI)AfAm Est GFR (CKD-EPI)NonAf POC Glucometer 113 Random Glucose Calcium Magnesium Blood Type Antibody Screen Crossmatch Active Medications Generic Name Dose Route Start Last Admin Trade Name Igorq PRN Reason Stop Dose Admin Amlodipine Besylate 10 mg 11/29/19 13:39 12/01/19 09:43 Norvasc - PO 10 mg DAILY [facility] Administration Ascorbic Acid 500 mg 12/02/19 10:00 Vitamin C - PO DAILY [facility] Aspirin 81 mg 11/29/19 10:00 12/01/19 09:43 Asa - PO 81 mg DAILY [facility] Administration Atorvastatin Calcium 40 mg 11/28/19 22:00 11/30/19 21:53 Lipitor - PO 40 mg HS [facility] Administration Cholecalciferol 5,000 unit 11/28/19 14:00 12/01/19 09:43 Vitamin D3 - PO 5,000 unit DAILY [facility] Administration Clonidine 0.1 mg 12/01/19 14:00 Catapres - PO TID [facility] Docusate Sodium 200 mg 12/01/19 13:30 Colace - PO DAILY [facility] Ferrous Sulfate 325 mg 12/01/19 13:57 Feosol - PO 12/01/19 13:58 ONCE ONE Furosemide 80 mg 11/29/19 06:00 12/01/19 06:10 Lasix Injection - IVPUSH 80 mg BIDLASIX [facility] Administration Gabapentin 200 mg 11/28/19 22:00 12/01/19 09:43 Neurontin - PO 200 mg BID [facility] Administration Hydralazine HCl 75 mg 11/29/19 22:00 12/01/19 06:12 Apresoline - PO 75 mg TID [facility] Administration Insulin Aspart 1 vial 11/28/19 16:30 12/01/19 12:09 Novolog Vial Sliding Scale - SQ Not Given ACHS [facility] Protocol Labetalol HCl 400 mg 11/28/19 14:00 12/01/19 06:10 Normodyne - PO 400 mg TID [facility] Administration Meclizine HCl 12.5 mg 11/29/19 22:00 12/01/19 06:13 Antivert - PO 12.5 mg TID [facility] Administration Senna 1 tab 12/01/19 22:00 Senna - PO HS [facility] Tamsulosin HCl 0.4 mg 11/29/19 08:30 12/01/19 09:43 Flomax - PO 0.4 mg 0830 [facility] Administration ASSESSMENT/PLAN: Mr. Alcantara is a 54M w a h/o stroke 4x, TIA, CHF (EF 50% on 09/2018), CKD, HTN, DM II, BPH admitted to the emergency department by of Dr. Hutchinson for diuresis. #Acute on chronic CHF exacerbation - ECHO EF - 55% 10/10 - LATEST ECHO - EF 50-55% 11/29/2019 - cardio on consult (Dr. Farrar) - continue patient 80IV lasix BID - improved BP control Strict I&O's, daily weights - #SENA on CKD stage III Nephrology (Dr. Hutchinson) - Continue diuresis Hold nephrotoxic medications Lisinopril held due to SENA #Hypertensive urgency - IV lasix 80mg BID Nitro drip 25mg from 50 - amlodipine 10 mg daily - hydralazine 50 mg BID from TID Labetalol 400mg TID #ANEMIA - FOBT to identify source -arrived with hg 7.7, -today 6.8 - transfx w 1 unit of PRBC - F/u H/h within 1 hour #HLD - Home lipitor 40mg #DMII - A1C - Insulin sliding scale - hold home medications - BGM # DVT prophylaxis - heparin sq #BPH Continue tamsulosin Visit type - Emergency Visit Emergency Visit: Yes ED Registration Date: 11/28/19 Care time: The patient presented to the Emergency Department on the above date and was hospitalized for further evaluation of their emergent condition. - New Patient This patient is new to me today: No - Critical Care Critical Care patient: No - Discharge Referral Referred to [facility] Med P.C.: No ATTENDING PHYSICIAN STATEMENT I saw and evaluated the patient. I reviewed the resident's note and discussed the case with the resident. I agree with the resident's findings and plan as documented. SUBJECTIVE: OBJECTIVE: ASSESSMENT AND PLAN:
[2019-12-01] MEDS: DOCUSATE SODIUM 100 MG CAPSULE (FP) PO SCH (14:27)
[2019-12-01 21:50] LABS: BASO % 0.8 % (0-2.0); EOS % 5.9 % (0-4.5); HEMATOCRIT 25.4 % (35.4-49); HEMOGLOBIN 8.3 GM/dL (11.7-16.9); LYMPH % 16.9 % (8-40); MCH 27.3 pg (25.7-33.7); MCHC 32.9 g/dl (32.0-35.9); MEAN CELL VOLUME 82.9 fl (80-96); MEAN PLT VOLUME 8.8 fl (7.5-11.1); MONO % 9.3 % (3.8-10.2); NEUT % 67.1 % (42.8-82.8); PLATELET COUNT 201 K/MM3 (134-434); RBC 3.06 M/mm3 (4.00-5.60); RDW 14.5 % (11.9-15.9); WHITE BLOOD COUNT 4.7 K/mm3 (4.0-10.0)
[2019-12-01] MEDS ORDERED: SENNOSIDES 8.6MG TABLET (FP) PO SCH (22:00)
[2019-12-01] MEDS: ATORVASTATIN CA 40 MG TABLET (FP) PO SCH (22:14)
[2019-12-02] MEDS: FUROSEMIDE 40 MG/4 ML INJECTABLE VIAL IVPUSH SCH (06:07)
[2019-12-02] MEDS: cloNIDine HCL 0.1 MG TABLET PO SCH ×2 (06:08→13:31)
[2019-12-02] MEDS: MECLIZINE HCL 12.5 MG TABLET PO SCH ×2 (06:09→13:31)
[2019-12-02] MEDS: LABETALOL HCL 200 MG TABLET (FP) PO SCH ×2 (06:09→13:31)
[2019-12-02] MEDS: hydrALAZINE HCL 25 MG TABLET (FP) PO SCH ×2 (06:09→13:31)
[2019-12-02] MEDS: INSULIN SLIDING SCALE (NOVOLOG) 1 VIAL SQ SCH ×2 (06:51→11:37)
[2019-12-02 07:38] LABS: BASO % 0.8 % (0-2.0); HEMATOCRIT 24.7 % (35.4-49); HEMOGLOBIN 8.2 GM/dL (11.7-16.9); LYMPH % 17.5 % (8-40); MCH 27.1 pg (25.7-33.7); MCHC 33.1 g/dl (32.0-35.9); MEAN CELL VOLUME 81.8 fl (80-96); MEAN PLT VOLUME 8.5 fl (7.5-11.1); MONO % 9.4 % (3.8-10.2); NEUT % 67.3 % (42.8-82.8); PLATELET COUNT 204 K/MM3 (134-434); RBC 3.02 M/mm3 (4.00-5.60); RDW 14.1 % (11.9-15.9); WHITE BLOOD COUNT 4.9 K/mm3 (4.0-10.0)
[2019-12-02 08:04] LABS: BLOOD UREA NITROGEN 51.6 mg/dL (7-18); CALCIUM 8.3 mg/dL (8.5-10.1); CREATININE 3.4 mg/dL (0.55-1.3); MAGNESIUM 2.3 mg/dL (1.8-2.4); PHOSPHOROUS 5.6 mg/dL (2.5-4.9); POTASSIUM 4.1 mmol/L (3.5-5.1)
[2019-12-02] MEDS ORDERED: ASCORBIC ACID 500 MG TABLET (FP) PO SCH (10:00)
[2019-12-02] MEDS: DOCUSATE SODIUM 100 MG CAPSULE (FP) PO SCH (10:03)
[2019-12-02] MEDS: CHOLECALCIFEROL (VIT D3) 1,000 UNIT (25 MCG) TABLET PO SCH (10:03)
[2019-12-02] MEDS: ASPIRIN 81 MG CHEWABLE TABLETS PO SCH (10:03)
[2019-12-02] MEDS: GABAPENTIN 100 MG CAPSULE PO SCH (10:03)
[2019-12-02] MEDS: TAMSULOSIN HCL 0.4 MG CAP PO SCH (10:03)
[2019-12-02] MEDS: amLODIPine BESYLATE 10 MG TABLET (FP) PO SCH (10:03)
[2019-12-02] MEDS ORDERED: INSULIN (NOVOLOG) ASPART 100 UNITS/ML 10ML VIAL ONE (11:34)
--- NOTE | 2019-12-02 12:21 | PN ---
Progress Note, Physician Chief Complaint: Feels much better Sinus on tele with no events History of Present Illness: 54 M DM, with CKD recently diagnosed. Has severe HTN and is admitted with severe HTN, heart failure and SENA on CKD. - Current Medication List Current Medications: Active Medications Amlodipine Besylate (Norvasc -) 10 mg PO DAILY [facility] Last Admin: 12/02/19 10:03 Dose: 10 mg Documented by: Ascorbic Acid (Vitamin C -) 500 mg PO DAILY [facility] Last Admin: 12/02/19 10:03 Dose: 500 mg Documented by: Aspirin (Asa -) 81 mg PO DAILY [facility] Last Admin: 12/02/19 10:03 Dose: 81 mg Documented by: Atorvastatin Calcium (Lipitor -) 40 mg PO [facility] Last Admin: 12/01/19 22:14 Dose: 40 mg Documented by: Cholecalciferol (Vitamin D3 -) 5,000 unit PO DAILY [facility] Last Admin: 12/02/19 10:03 Dose: 5,000 unit Documented by: Clonidine (Catapres -) 0.1 mg PO TID [facility] Last Admin: 12/02/19 06:08 Dose: 0.1 mg Documented by: Docusate Sodium (Colace -) 200 mg PO DAILY [facility] Last Admin: 12/02/19 10:03 Dose: 200 mg Documented by: Furosemide (Lasix Injection -) 80 mg IVPUSH BIDLASIX [facility] Last Admin: 12/02/19 06:07 Dose: 80 mg Documented by: Gabapentin (Neurontin -) 200 mg PO BID [facility] Last Admin: 12/02/19 10:03 Dose: 200 mg Documented by: Hydralazine HCl (Apresoline -) 75 mg PO TID [facility] Last Admin: 12/02/19 06:09 Dose: 75 mg Documented by: Insulin Aspart (Novolog Vial Sliding Scale -) 1 vial SQ [facility]; Protocol Last Admin: 12/02/19 11:37 Dose: Not Given Documented by: Labetalol HCl (Normodyne -) 400 mg PO TID [facility] Last Admin: 12/02/19 06:09 Dose: 400 mg Documented by: Meclizine HCl (Antivert -) 12.5 mg PO TID [facility] Last Admin: 12/02/19 06:09 Dose: 12.5 mg Documented by: Senna (Senna -) 1 tab PO [facility] Last Admin: 12/01/19 22:18 Dose: 1 tab Documented by: Tamsulosin HCl (Flomax -) 0.4 mg PO 0830 [facility] Last Admin: 12/02/19 10:03 Dose: 0.4 mg Documented by: - Objective Vital Signs: Vital Signs Temperature 98.1 F 12/02/19 10:00 Pulse Rate 62 12/02/19 10:00 Respiratory Rate 20 12/02/19 10:00 Blood Pressure 160/91 12/02/19 10:00 O2 Sat by Pulse Oximetry (%) 98 12/02/19 10:00 Constitutional: Yes: No Distress Neck: Yes: Supple Cardiovascular: Yes: Regular Rate and Rhythm. No: JVD Respiratory: Yes: Diminished Gastrointestinal: Yes: Soft Edema: LLE: Trace, RLE: Trace Labs: CBC, BMP 12/02/19 06:58 12/02/19 06:58 Problem List - Problems (1) CHF (congestive heart failure) Code(s): I50.9 - HEART FAILURE, UNSPECIFIED Qualifiers: Heart failure type: unspecified Heart failure chronicity: unspecified Qualified Code(s): I50.9 - Heart failure, unspecified (2) HTN (hypertension) Code(s): I10 - ESSENTIAL (PRIMARY) HYPERTENSION Qualifiers: Hypertension type: unspecified Qualified Code(s): I10 - Essential (primary) hypertension Assessment/Plan 54 M DM, with CKD recently diagnosed. Has severe HTN and is admitted with severe HTN, heart failure and SENA on CKD. Echocardiogram recently showed borderline EF w LVH. Pt w severe HTN. Likely acute on chronic diastolic CHF. ER Echo 11/29/2019 limited views only: normal LV function with small pericardial effusion and plethoric IVC consistent with diastolic CHF. CHF Acute on chronic diastolic CHF likely due to uncontrolled htn Improving on IV furosemide. Would consider transitioning to PO furosemide 80mg PO bid Follow I's/O's/Lytes/Wt's HTN Continue Amlodipine 10 mg PO daily Clonidine 0.1 mg PO BID Hydralazine 75 mg PO TID Labetalol 400 mg PO TID Hold BRITTANY/ARB BP improved. If need further control would increase hydralazine to 100mg -Anemia Got 1 unit pRBC yesterday. ? etiology of anemia. Primary team should look into reason for need for transfusion
--- NOTE | 2019-12-02 13:03 | PN ---
Teaching Attending Note Name of Resident: Ferny Terrell ATTENDING PHYSICIAN STATEMENT I saw and evaluated the patient. I reviewed the resident's note and discussed the case with the resident. I agree with the resident's findings and plan as documented. SUBJECTIVE: Pt seen and examined at bedside OBJECTIVE: Last Vital Signs Temp Pulse Resp BP Pulse Ox 98.1 F 62 20 160/91 98 12/02/19 10:00 12/02/19 10:00 12/02/19 10:00 12/02/19 10:00 12/02/19 10:00 GENERAL: Awake, alert, and fully oriented, in no acute distress. HEENT: NC/AT, not p/c/j, neck supple LUNGS: CTA HEART: Regular rate and rhythm, normal S1 and S2 ABDOMEN: Soft, nontender, not distended LOWER EXTREMITIES: 2+ pulses, warm, well-perfused. No calf tenderness. + edema. NEUROLOGICAL: Cranial nerves II-XII intact. Normal speech. CBCD WBC 4.9 K/mm3 (4.0-10.0) 12/02/19 06:58 RBC 3.02 M/mm3 (4.00-5.60) L 12/02/19 06:58 Hgb 8.2 GM/dL (11.7-16.9) L 12/02/19 06:58 Hct 24.7 % (35.4-49) L 12/02/19 06:58 MCV 81.8 fl (80-96) 12/02/19 06:58 MCHC 33.1 g/dl (32.0-35.9) 12/02/19 06:58 RDW 14.1 % (11.9-15.9) 12/02/19 06:58 Plt Count 204 K/MM3 (134-434) 12/02/19 06:58 MPV 8.5 fl (7.5-11.1) 12/02/19 06:58 CMP Sodium 143 mmol/L (136-145) 12/02/19 06:58 Potassium 4.1 mmol/L (3.5-5.1) 12/02/19 06:58 Chloride 108 mmol/L (98-107) H 12/02/19 06:58 Carbon Dioxide 28 mmol/L (21-32) 12/02/19 06:58 Anion Gap 7 MMOL/L (8-16) L 12/02/19 06:58 BUN 51.6 mg/dL (7-18) H 12/02/19 06:58 Creatinine 3.4 mg/dL (0.55-1.3) H 12/02/19 06:58 Calcium 8.3 mg/dL (8.5-10.1) L 12/02/19 06:58 Total Bilirubin 0.4 mg/dL (0.2-1) 11/29/19 05:40 AST 24 U/L (15-37) 11/29/19 05:40 ALT 28 U/L (13-61) 11/29/19 05:40 Alkaline Phosphatase 124 U/L (45-117) H 11/29/19 05:40 Total Protein 5.6 g/dl (6.4-8.2) L 11/29/19 05:40 Albumin 2.8 g/dl (3.4-5.0) L 11/29/19 05:40 Active Medications Amlodipine Besylate (Norvasc -) 10 mg PO DAILY [facility] Last Admin: 12/02/19 10:03 Dose: 10 mg Documented by: Ascorbic Acid (Vitamin C -) 500 mg PO DAILY [facility] Last Admin: 12/02/19 10:03 Dose: 500 mg Documented by: Aspirin (Asa -) 81 mg PO DAILY [facility] Last Admin: 12/02/19 10:03 Dose: 81 mg Documented by: Atorvastatin Calcium (Lipitor -) 40 mg PO HS [facility] Last Admin: 12/01/19 22:14 Dose: 40 mg Documented by: Cholecalciferol (Vitamin D3 -) 5,000 unit PO DAILY [facility] Last Admin: 12/02/19 10:03 Dose: 5,000 unit Documented by: Clonidine (Catapres -) 0.1 mg PO TID [facility] Last Admin: 12/02/19 06:08 Dose: 0.1 mg Documented by: Docusate Sodium (Colace -) 200 mg PO DAILY [facility] Last Admin: 12/02/19 10:03 Dose: 200 mg Documented by: Furosemide (Lasix Injection -) 80 mg IVPUSH BIDLASIX [facility] Last Admin: 12/02/19 06:07 Dose: 80 mg Documented by: Gabapentin (Neurontin -) 200 mg PO BID [facility] Last Admin: 12/02/19 10:03 Dose: 200 mg Documented by: Hydralazine HCl (Apresoline -) 75 mg PO TID [facility] Last Admin: 12/02/19 06:09 Dose: 75 mg Documented by: Insulin Aspart (Novolog Vial Sliding Scale -) 1 vial SQ ACHS [facility]; Protocol Last Admin: 12/02/19 11:37 Dose: Not Given Documented by: Labetalol HCl (Normodyne -) 400 mg PO TID [facility] Last Admin: 12/02/19 06:09 Dose: 400 mg Documented by: Meclizine HCl (Antivert -) 12.5 mg PO TID [facility] Last Admin: 12/02/19 06:09 Dose: 12.5 mg Documented by: Senna (Senna -) 1 tab PO HS [facility] Last Admin: 12/01/19 22:18 Dose: 1 tab Documented by: Tamsulosin HCl (Flomax -) 0.4 mg PO 30 [facility] Last Admin: 12/02/19 10:03 Dose: 0.4 mg Documented by: ASSESSMENT AND PLAN: 54 old male with a history of stroke, TIA, CHF, CKD, hypertension, diabetes, BPH admitted with acute on chronic CHF exacerbation, SENA, and hypertensive urgency. #Acute on chronic HFpEF -transition to PO lasix 80 bid -uncontrolled HTN, now clonidine 0.1 TID -D/c ACEi due to SENA -Strict I&O's, daily weights -cardiology following #SENA on CKD -Creat stable/down trend, Continue diuresis -Hold nephrotoxic medications -nephrology following #Anemia - probably multifactorial: inflammatory vs blood loss vs HARINDER -today 8.2 -still waiting for FOBT -trend H&H, added ferritin+VitC -if GI bleed ruled out will need work up as outpatient since he already received transfusion HTN H/o stroke BPH
--- NOTE | 2019-12-02 13:22 | PN ---
Progress Note, Physician History of Present Illness: Pt seen and examined at bedside. He is awake and alert. He denies shortness of breath. He feels that his edema is improved. - Current Medication List Current Medications: Active Medications Amlodipine Besylate (Norvasc -) 10 mg PO DAILY [facility] Last Admin: 12/02/19 10:03 Dose: 10 mg Documented by: Ascorbic Acid (Vitamin C -) 500 mg PO DAILY [facility] Last Admin: 12/02/19 10:03 Dose: 500 mg Documented by: Aspirin (Asa -) 81 mg PO DAILY [facility] Last Admin: 12/02/19 10:03 Dose: 81 mg Documented by: Atorvastatin Calcium (Lipitor -) 40 mg PO [facility] Last Admin: 12/01/19 22:14 Dose: 40 mg Documented by: Cholecalciferol (Vitamin D3 -) 5,000 unit PO DAILY [facility] Last Admin: 12/02/19 10:03 Dose: 5,000 unit Documented by: Clonidine (Catapres -) 0.1 mg PO TID [facility] Last Admin: 12/02/19 06:08 Dose: 0.1 mg Documented by: Docusate Sodium (Colace -) 200 mg PO DAILY [facility] Last Admin: 12/02/19 10:03 Dose: 200 mg Documented by: Furosemide (Lasix -) 80 mg PO BID@0600,1400 [facility] Gabapentin (Neurontin -) 200 mg PO BID [facility] Last Admin: 12/02/19 10:03 Dose: 200 mg Documented by: Hydralazine HCl (Apresoline -) 75 mg PO TID [facility] Last Admin: 12/02/19 06:09 Dose: 75 mg Documented by: Insulin Aspart (Novolog Vial Sliding Scale -) 1 vial SQ [facility]; Protocol Last Admin: 12/02/19 11:37 Dose: Not Given Documented by: Labetalol HCl (Normodyne -) 400 mg PO TID [facility] Last Admin: 12/02/19 06:09 Dose: 400 mg Documented by: Meclizine HCl (Antivert -) 12.5 mg PO TID [facility] Last Admin: 12/02/19 06:09 Dose: 12.5 mg Documented by: Senna (Senna -) 1 tab PO [facility] Last Admin: 12/01/19 22:18 Dose: 1 tab Documented by: Tamsulosin HCl (Flomax -) 0.4 mg PO 0830 [facility] Last Admin: 12/02/19 10:03 Dose: 0.4 mg Documented by: - Objective Vital Signs: Vital Signs Temperature 98.1 F 12/02/19 10:00 Pulse Rate 62 12/02/19 10:00 Respiratory Rate 20 12/02/19 10:00 Blood Pressure 160/91 12/02/19 10:00 O2 Sat by Pulse Oximetry (%) 98 12/02/19 10:00 Constitutional: Yes: Calm Eyes: Yes: Conjunctiva Clear HENT: Yes: Atraumatic Neck: Yes: Supple Cardiovascular: Yes: S1, S2 Respiratory: Yes: CTA Bilaterally Gastrointestinal: Yes: Normal Bowel Sounds, Soft Genitourinary: Yes: WNL Musculoskeletal: Yes: WNL Edema: Yes Edema: LLE: Trace, RLE: Trace Neurological: Yes: Oriented Psychiatric: Yes: Oriented Labs: CBC, BMP 12/02/19 06:58 12/02/19 06:58 Assessment/Plan Current Medications Generic Name Dose Route Start Last Admin Trade Name Tamia PRN Reason Stop Dose Admin Amlodipine Besylate 10 mg 11/29/19 13:39 12/02/19 10:03 Norvasc - PO 10 mg DAILY [facility] Administration Ascorbic Acid 500 mg 12/02/19 10:00 12/02/19 10:03 Vitamin C - PO 500 mg DAILY [facility] Administration Aspirin 81 mg 11/29/19 10:00 12/02/19 10:03 Asa - PO 81 mg DAILY [facility] Administration Atorvastatin Calcium 40 mg 11/28/19 22:00 12/01/19 22:14 Lipitor - PO 40 mg HS [facility] Administration Cholecalciferol 5,000 unit 11/28/19 14:00 12/02/19 10:03 Vitamin D3 - PO 5,000 unit DAILY [facility] Administration Clonidine 0.1 mg 12/01/19 14:00 12/02/19 06:08 Catapres - PO 0.1 mg TID [facility] Administration Docusate Sodium 200 mg 12/01/19 13:30 12/02/19 10:03 Colace - PO 200 mg DAILY [facility] Administration Furosemide 80 mg 12/02/19 14:00 Lasix - PO BID@0600,1400 [facility] Gabapentin 200 mg 11/28/19 22:00 12/02/19 10:03 Neurontin - PO 200 mg BID [facility] Administration Hydralazine HCl 75 mg 11/29/19 22:00 12/02/19 06:09 Apresoline - PO 75 mg TID [facility] Administration Insulin Aspart 1 vial 11/28/19 16:30 12/02/19 11:37 Novolog Vial Sliding Scale - SQ Not Given ACHS [facility] Protocol Labetalol HCl 400 mg 11/28/19 14:00 12/02/19 06:09 Normodyne - PO 400 mg TID [facility] Administration Meclizine HCl 12.5 mg 11/29/19 22:00 12/02/19 06:09 Antivert - PO 12.5 mg TID [facility] Administration Senna 1 tab 12/01/19 22:00 12/01/19 22:18 Senna - PO 1 tab HS [facility] Administration Tamsulosin HCl 0.4 mg 11/29/19 08:30 12/02/19 10:03 Flomax - PO 0.4 mg 0830 [facility] Administration Impression: SENA on CKD CHF exacerbation DM Hx of CVA HTN urgency hypokalemia volume overload Plan - cont lasix, can switch to po - volume status has improved - he will need close outpt follow up - monitor lytes - discussed diet and fluid intake - cont to monitor renal function
[2019-12-02 13:43] VITALS: BP 174/93; PULSE 65; TEMP 98
[2019-12-02] MEDS ORDERED: FUROSEMIDE 40 MG TABLET (FP) PO SCH (14:00)
--- NOTE | 2019-12-02 19:34 | DS ---
Physical Exam: SUBJECTIVE: Patient seen and examined at bedside. Patient reports increased urination with greatly improved breathing. Patient denies any overnight events. Patient will follow up outpatient with cardiology and nephrology outpatient. OBJECTIVE: Vital Signs Period Temp Pulse Resp BP Sys/Hanson Pulse Ox Last 24 Hr 97.8 F-98.2 F 20-65 20-20 147-174/84-93 98-98 PHYSICAL EXAM GENERAL: The patient is awake, alert, and fully oriented, in no acute distress. HEAD: Normal with no signs of trauma. LUNGS: Breath sounds equal, clear to auscultation bilaterally, no wheezes, no crackles, no accessory muscle use. HEART: Regular rate and rhythm, S1, S2 without murmur, rub or gallop. ABDOMEN: Soft, nontender, nondistended, normoactive bowel sounds, no guarding, no rebound, no hepatosplenomegaly, no masses. EXTREMITIES: 2+ EDEMA BILATERALLY FROM LATERAL CALCANEUS TO MID LATERAL IT BAND PSYCH: Normal mood, normal affect. LABS Laboratory Results - last 24 hr 11/29/19 12/01/19 12/01/19 21:28 14:15 21:01 WBC 4.7 RBC 3.06 L Hgb 8.3 L Hct 25.4 L D MCV 82.9 MCH 27.3 MCHC 32.9 RDW 14.5 Plt Count 201 MPV 8.8 Absolute Neuts (auto) 3.1 Neutrophils % 67.1 Lymphocytes % 16.9 Monocytes % 9.3 Eosinophils % 5.9 H Basophils % 0.8 Nucleated RBC % 0 Sodium Potassium Chloride Carbon Dioxide Anion Gap BUN Creatinine Est GFR (CKD-EPI)AfAm Est GFR (CKD-EPI)NonAf POC Glucometer 115 Random Glucose Calcium Phosphorus Magnesium Stool Occult Blood Negative 12/01/19 12/02/19 12/02/19 22:26 05:27 06:58 WBC 4.9 RBC 3.02 L Hgb 8.2 L Hct 24.7 L MCV 81.8 MCH 27.1 MCHC 33.1 RDW 14.1 Plt Count 204 MPV 8.5 Absolute Neuts (auto) 3.3 Neutrophils % 67.3 Lymphocytes % 17.5 Monocytes % 9.4 Eosinophils % 5.0 H Basophils % 0.8 Nucleated RBC % 0 Sodium Potassium Chloride Carbon Dioxide Anion Gap BUN Creatinine Est GFR (CKD-EPI)AfAm Est GFR (CKD-EPI)NonAf POC Glucometer 176 119 Random Glucose Calcium Phosphorus Magnesium Stool Occult Blood 12/02/19 12/02/19 06:58 11:31 WBC RBC Hgb Hct MCV MCH MCHC RDW Plt Count MPV Absolute Neuts (auto) Neutrophils % Lymphocytes % Monocytes % Eosinophils % Basophils % Nucleated RBC % Sodium 143 Potassium 4.1 Chloride 108 H Carbon Dioxide 28 Anion Gap 7 L BUN 51.6 H Creatinine 3.4 H Est GFR (CKD-EPI)AfAm 22.42 Est GFR (CKD-EPI)NonAf 19.35 POC Glucometer 150 Random Glucose 111 H Calcium 8.3 L Phosphorus 5.6 H Magnesium 2.3 Stool Occult Blood HOSPITAL COURSE: Date of Admission:11/28/19 Mr. Alcantara is a 54M w a h/o stroke 4x, TIA, CHF (EF 50% on 09/2018), CKD, HTN, DM II, BPH admitted to the emergency department by of Dr. Hutchinson for diuresis. His labwork was significant for a BNP of 19k and Cr of 2.9. The patient endorsed increased shortness of breath with minimal exertion. The patient was placed on telemetry and monitored for volume overload and hypertensive urgency. Patient was evaluated by Dr. Farrar and Dr. Power for medication management. Was also treated with IV Lasix and nitro drip for diuresis and BP control. Echo cardiogram reveals EF of 50-55%. The patient was seen to have bilateral pitting edema 3+ bilaterally extending to the mid thigh. Patient was evaluated by Dr. Hutson for medication management and SENA on CKD III. The patient was found to have a decreased Hgb of 6.8 and evaluated for occult bleeding via FOBT which will be followed up outpatient. The patient was treated with 1 unit of PRBC. Mr Alcantara will follow up outpatient and will discuss further management of his CKD and HTN. Date of Discharge: 12/02/19 Minutes to complete discharge: 35 Discharge Summary Problems reviewed: Yes Reason For Visit: HYPOKALEMIA,CRF,ACUTE ON CHF Condition: Stable - Instructions Diet, Activity, Other Instructions: You were evaluated in the hospital after your Steam Box Hand noted labwork suggestive of worsening heart failure. Chest x-ray imaging showed excessive fluid in your lungs. An echocardiogram was done to evaluate the functioning of your heart. You have a moderately enlarged heart. You were given medications to help you urinate excessive fluids from your body. A manager acute and a television production technician were involved in your care. It was determined that you have achieved adequate fluid equilibrium. Your blood pressure was high so your medication regimen was adjusted. You were given one blood transfusion due to a low hemoglobin. No obvious source of bleeding was found. Your stool was tested to evaluate for a possibility of intestinal bleeding and result was negative for bleeding, further evaluation will be needed with your primary care provider. Your results will be discussed in the outpatient setting. MEDICATION CHANGES: - STOP taking Lisinopril 5mg - increase dosage of Furosemide[LASIX] to 80mg twice a day - increase dosage of Amlodipine[NORVASC] to 10mg daily - increase dosage of Hydralazine[APRESOLINE] to 75mg three times a day. This will help control your blood pressure - start taking Labetalol[NORMODYNE] 200mg, three times a day. This will help control your blood pressure - start taking Clonidine[CATAPRES] 0.1mg three times a day. This will help control your blood pressure - start taking Docusate[COLACE] 200mg daily. This will help with constipation Additional Instructions: - check your Blood Pressure daily during a peaceful time of day and maintain a log. Please show this log to your doctors - avoid excessive salts in your diet - restrict your fluid intake to less than 1.2L daily - monitor your weight on a daily basis, if you gain more than 2-5lbs it may be a sign of excessive fluid in your body Please follow-up with the physicians below: - Primary Care Physician: follow-up in 2 weeks, please discuss your recent hospitalization. Please recheck your bloodwork(CBC) to reevaluate your hemoglobin to see if you are experiencing a persistent bleed - Steam Box Hand(Evangelina): follow-up in 1 week, please repeat your blood work(BMP) to reevaluate your electrolytes and kidney function - Glass Handler(your previous Glass Handler or Dr Farrar): follow-up within 1 week to discuss your heart failure, and lasix regimen Please seek immediate medical evaluation if you experience: - severe shortness of breath, chest pain, palpitations - severe confusion - bloody stools, abdominal pain Referrals: Iván Braga MD [Primary Care Provider] - 2 Weeks (follow-up in 2 weeks, please discuss your recent hospitalization. Please recheck your bloodwork(CBC) to reevaluate your hemoglobin to see if you are experiencing a persistent bleed) Marcel Hutchinson MD [Staff Physician] - (follow-up in 1 week, please repeat your blood work(BMP) to reevaluate your electrolytes and kidney function) Miguel Angel Farrar MD [Staff Physician] - (follow-up in 1-2 weeks to discuss your heart failure, and lasix regimen) Disposition: HOME - Home Medications Comprehensive Discharge Medication List: Ambulatory Orders Alogliptin Benzoate [Alogliptin] 6.25 mg PO DAILY 12/02/19 Amlodipine Besylate [Norvasc -] 10 mg PO DAILY #30 tablet 12/02/19 Aspirin [ASA -] 81 mg PO DAILY 12/02/19 Atorvastatin Ca [Lipitor] 40 mg PO HS 12/02/19 Clopidogrel Bisulfate [Plavix] 75 mg PO DAILY 12/02/19 Docusate Sodium [Colace -] 200 mg PO DAILY #28 capsule 12/02/19 Ergocalciferol (Vitamin D2) [Vitamin D2] 50,000 unit PO WE 12/02/19 Furosemide [Lasix -] 80 mg PO BID@0600,1400 #120 tablet 12/02/19 Gabapentin 200 mg PO BID 12/02/19 Labetalol HCl [Normodyne -] 400 mg PO TID #120 tablet 12/02/19 Meclizine HCl 12.5 mg PO Q6H PRN 12/02/19 Metformin HCl [Glucophage] 1,000 mg PO BID 12/02/19 Sodium Bicarbonate - 1,300 mg PO BID 12/02/19 Tamsulosin HCl [Flomax] 0.4 mg PO DAILY 12/02/19 cloNIDine HCL [Catapres -] 0.1 mg PO TID #90 tablet 12/02/19 hydrALAZINE HCL [Apresoline -] 75 mg PO TID #180 tablet 12/02/19 This patient is new to me today: No Emergency Visit: Yes ED Registration Date: 11/28/19 Care time: The patient presented to the Emergency Department on the above date and was hospitalized for further evaluation of their emergent condition. Critical Care patient: No - Discharge Referral Referred to [facility] Med P.C.: No ATTENDING PHYSICIAN STATEMENT I saw and evaluated the patient. I reviewed the resident's note and discussed the case with the resident. I agree with the resident's findings and plan as documented. SUBJECTIVE: OBJECTIVE: ASSESSMENT AND PLAN:
== END 2019-12-02 15:30 | disposition home or self-care (01) | DRG 194 ==
LOC: JER 10:25 → JERBED 13:37 → J4W 18:10
PROVIDERS: ADMIT Internal Medicine; ATTEND Student in an Organized Health Care Education/Training Program
DX: I13.0 Hypertensive heart and chronic kidney disease with heart failure and stage 1 through stage 4 chronic kidney disease, or unspecified chronic kidney disease (principal); E87.6 Hypokalemia; D72.819 Decreased white blood cell count, unspecified; D63.1 Anemia in chronic kidney disease; I16.0 Hypertensive urgency; I25.10 Atherosclerotic heart disease of native coronary artery without angina pectoris; K92.1 Melena; I50.33 Acute on chronic diastolic (congestive) heart failure; N18.4 Chronic kidney disease, stage 4 (severe); E11.22 Type 2 diabetes mellitus with diabetic chronic kidney disease; N17.9 Acute kidney failure, unspecified; N40.0 Benign prostatic hyperplasia without lower urinary tract symptoms; E87.70 Fluid overload, unspecified; F17.210 Nicotine dependence, cigarettes, uncomplicated
CPT/HCPCS: 36415; 36430; 71045-TC-FY; 80048; 80053; 82272; 82550; 82553; 82728; 82962; 83036; 83540; 83550; 83735; 83880; 84100; 84484; 85025; 85027; 85045; 86850; 86900; 86901; 86922; 93005; 93010; 93306-TC; 99285-25; J0735; P9058; U0003

== ENCOUNTER 2020-01-10 12:42 | Inpatient (IN) | payer OTHER ==
[2020-01-10 12:54] VITALS: BMI 21.7
[2020-01-10] MEDS ORDERED: SODIUM CHLORIDE 1,000 ML IV SCH ×2 (13:00→15:45)
--- NOTE | 2020-01-10 13:01 | PDOC ---
Attending Attestation - Resident Resident Name: Vilma Seals - ED Attending Attestation I have performed the following: I have examined & evaluated the patient, The case was reviewed & discussed with the resident, I agree w/resident's findings & plan, Exceptions are as noted - HPI HPI: 01/10/20 13:01 55 M with h/o stroke 4x, TIA, CHF (EF 50% on 09/2018), CKD, HTN, DM II, BPH, presenting to ED with slurred speech. Per , pt was last seen normal at 7:50 AM when she left for work. Then, around 11AM, pt called her saying that he didn't feel well. She states that at this time his speech sounded slurred. She went home and encountered the patient "acting dizzy", stating that he was unsteady and moving his head in circles. She then brought the pt to the ED, where she states that pt has started to return to baseline. Pt reports that he felt very dizzy. He states he was on a ladder at the time but denies falling or headstrike. notes that with pt's previous TIAs, he also exhibited slurred speech and also had lower extremity weakness. - Physicial Exam PE: 01/10/20 13:07 See resident exam - Critical Care Time Total Critical Care Time: 20 - Medical Decision Making 01/10/20 13:07 55 M with h/o CVA/TIA presenting with dizziness, slurred speech. Now back to baseline. Pt with NIHSS 4. However, this is due to chronic deficits (blindness and chronic finger numbness). No indication for TPA at this time. - Labs - CT head - Neuro c/s - Admit tele NIH Stroke Scale - Last Known Well Date/Time & Onset Date Last Known Well: 01/10/20 Time Last Known Well: 07:50 - Initial Evaluation Level of consciousness: Alert Ask patient the month and their age: Answers both correctly Ask patient to open & close eyes; make fist and let go: Obeys both correctly Best gaze (horizontal eye movement): Normal Visual field testing: Bilateral hemianopia (blind including cortical blindness) Facial paresis (Show teeth/raise eyebrows/close eyes tight): Normal symmetrical movement Motor Function: Left Arm: Normal Motor Function: Right Arm: Normal (extends arm 90 (or 45) degrees for 10 seconds without drift Motor Function: Left Leg: Normal (extends leg 30 degrees for 5 seconds without drift) Motor Function: Right Leg: Normal (extends leg 30 degrees for 5 seconds without drift) Limb Ataxia: No ataxia Sensory(Use pinprick test arms,legs,trunk,face/side to side): Mild to moderate decrease in sensation Best language (Describe picture, name items, read sentences): No Aphasia Dysarthria (read several words): Normal articulation Extinction and Inattention: No abnormality - Total Score NIH Stroke Scale Score: 4 Discharge - Discharge Information Problems reviewed: Yes Clinical Impression/Diagnosis: TIA (transient ischemic attack), SENA (acute kidney injury), Dizziness - Follow up/Referral - Patient Discharge Instructions - Post Discharge Activity
[2020-01-10 13:24] LABS: BASO % 0.7 % (0-2.0); EOS % 3.9 % (0-4.5); HEMOGLOBIN 8.4 GM/dL (11.7-16.9); LYMPH % 9.4 % (8-40); MCH 27.6 pg (25.7-33.7); MCHC 33.5 g/dl (32.0-35.9); MEAN CELL VOLUME 82.5 fl (80-96); MEAN PLT VOLUME 8.2 fl (7.5-11.1); MONO % 5.8 % (3.8-10.2); NEUT % 80.2 % (42.8-82.8); PLATELET COUNT 224 K/MM3 (134-434); RBC 3.03 M/mm3 (4.00-5.60); RDW 15.2 % (11.9-15.9); WHITE BLOOD COUNT 5.8 K/mm3 (4.0-10.0)
[2020-01-10 13:37] LABS: INR 1.17 (0.83-1.09); PROTHROMBIN TIME (PATIENT) 13.8 SEC (9.7-13.0)
[2020-01-10 13:40] LABS: ACTIVATED PTT 38.3 SECONDS (25.2-36.5)
--- NOTE | 2020-01-10 13:42 | PDOC ---
History of Present Illness - General Chief Complaint: Syncope/Near Syncope Stated Complaint: SYNCOPE Time Seen by Provider: 01/10/20 13:00 - History of Present Illness Initial Comments: Pt is a 55yo M with PMH hx of CVA/TIA with residual L sided weakness, HTN, HLD, CHF (EF 50-55% 11/2019), T2DM, renal failure who presents with near syncope and slurred speech. Last seen well by around 7:50am. Pt was working on his ladder at about 10am today, looking upwards, when he described dizziness/vertiginous sensation and slid off the ladder. Denies any falls, head trauma, LOC. States that he continued to feel dizzy and had to walk holding onto railing. States that he took meclizine with improvement in his symptoms. Called his and she reports that his speech sounded slurred, which prompted them to come to ED today. Currently, slurred speech has resolved and patient denies any complaints. Reporting residual left sided weakness and numbness in upper and lower extremities that is unchanged from previous. Denies any f/c, chest pain, abdominal pain, n/v, change in PO intake, headaches, lightheadedness. PCP: Omi PMH: see above Meds: see chart Allergies: NKDA Social: reports 3cigarettes/day, denies etoh and illicit substance use Review of Systems CONSTITUTIONAL: denies fever, chills, diaphoresis, generalized weakness, malaise, loss of appetite HEENT: denies rhinorrhea, nasal congestion, sore throat, visual changes (patient is legally blind in both eyes) CARDIOVASCULAR: denies chest pain, palpitations, irregular heart rate, lightheadedness RESPIRATORY: denies cough, shortness of breath, wheezing GASTROINTESTINAL: denies abdominal pain, nausea, vomiting, diarrhea, constipation, melena, hematochezia GENITOURINARY: denies dysuria, frequency, hematuria, flank pain MUSCULOSKELETAL: denies myalgia, arthralgia HEMATOLOGIC/IMMUNOLOGIC: denies easy bleeding, easy bruising ENDOCRINE: denies unexplained weight gain, unexplained weight loss NEUROLOGIC: reports L arm paresthesias, weakness, L left weakness; denies headache, loss of consciousness, mental status changes, bladder or bowel incontinence SKIN: denies rash, itching, pallor Physical Exam General: awake, alert, fully oriented, in no acute distress, well developed, well nourished Head: normocephalic, atraumatic Eyes: PERRL, EOMI, anicteric sclera, conjunctiva clear ENT: hearing grossly normal, oropharynx clear without exudates, no nasal congestion, moist mucous membranes Neck: supple, normal ROM Lung: equal breath sounds b/l, CTA b/l, no crackles, wheezes; no distress, speaks full sentences Heart: RRR, normal S1, S2, no murmurs appreciated Abdomen: soft, non tender, normoactive bowel sounds, no guarding, rebound, masses Extremities: no edema, no erythema or tenderness, radial/DP/PT pulses 2+ and symmetric, no clubbing, cyanosis Neuro: Cranial nerves: Cranial nerves II through XII are intact, No abnormal nystagmus. Motor: The upper extremities are 5/5 in all muscle groups. The lower extremities are 5/5 in all muscle groups. No pronator drift. Sensation: Sensation is intact to light touch throughout. Cerebellar: -dysmetria, -dysdiadochokinesia Skin: warm, dry, normal skin turgor, capillary refill <2 seconds, no rashes or lesions noted MDM Pt is a 55yo M with PMH hx of CVA/TIA with residual L sided weakness, HTN, HLD, CHF (EF 50-55% 11/2019), T2DM, renal failure who presents with near syncope and slurred speech. Vitals WNL DDx including but not limited to: TIA, CVA, vertigo Workup: labs, ekg, cxr EKG: normal sinus rhythm, HR 62bpm, MT 176ms, QRS 118ms, QTc 475ms, incomplete LBBB Head CT: moderate periventricular chronic microvascular ischemic disease changes that appears to be involving right thalamus without interval change. Lacunar infarct in anterior aspect of left thalamus likely chronic. was not seen on prior CT or MRI. Mild R periorbital and preseptal soft tissue swelling. ED course Labs: no leukocytosis, anemia @baseline, electrolytes WNL, SENA, LFTs WNL, troponin WNL - Will give 500ml NS Admission discussed with patient who agreed with plan Disposition: Admit 01/10/20 15:01 CXR - no pneumothorax or pleural effusion. midline airway, appropriate vascular markings, no blunting of costophrenic angle, no cardiomegaly, as read by ED staff tPA Exclusion Checklist 0-3hr - Time Elapsed Date last known well: 01/10/20 Time last known well: 07:50 Elaspsed time: 8 Day(s) and 12 Hour(s) and 20 Minutes - Thrombolytic Therapy Candidate Is the patient eligible for Thrombolytic Therapy?: No - Ineligibility reason(s) Reasons No tPA given: Outside of window - delayed arrival NIH Stroke Scale - Last Known Well Date/Time & Onset Date Last Known Well: 01/10/20 Time Last Known Well: 07:50 - Initial Evaluation Level of consciousness: Alert Ask patient the month and their age: Answers both correctly Ask patient to open & close eyes; make fist and let go: Obeys both correctly Best gaze (horizontal eye movement): Normal Visual field testing: Bilateral hemianopia (blind including cortical blindness) Facial paresis (Show teeth/raise eyebrows/close eyes tight): Normal symmetrical movement Motor Function: Left Arm: Normal Motor Function: Right Arm: Normal (extends arm 90 (or 45) degrees for 10 seconds without drift Motor Function: Left Leg: Normal (extends leg 30 degrees for 5 seconds without drift) Motor Function: Right Leg: Normal (extends leg 30 degrees for 5 seconds without drift) Limb Ataxia: No ataxia Sensory(Use pinprick test arms,legs,trunk,face/side to side): Mild to moderate decrease in sensation Best language (Describe picture, name items, read sentences): No Aphasia Dysarthria (read several words): Normal articulation Extinction and Inattention: No abnormality - Total Score NIH Stroke Scale Score: 4 Past History - Medical History Allergies/Adverse Reactions: Allergies Allergy/AdvReac Type Severity Reaction Status Date / Time No Known Allergies Allergy Verified 11/28/19 10:39 Home Medications: Ambulatory Orders Alogliptin Benzoate [Alogliptin] 6.25 mg PO DAILY 12/02/19 Aspirin [ASA -] 81 mg PO DAILY 12/02/19 Atorvastatin Ca [Lipitor] 80 mg PO HS 12/02/19 Clopidogrel Bisulfate [Plavix] 75 mg PO DAILY 12/02/19 Ergocalciferol (Vitamin D2) [Vitamin D2] 50,000 unit PO WE 12/02/19 Gabapentin 200 mg PO BID 12/02/19 Labetalol HCl [Normodyne -] 400 mg PO TID #120 tablet 12/02/19 Sodium Bicarbonate - 1,300 mg PO BID 12/02/19 Tamsulosin HCl [Flomax] 0.4 mg PO DAILY 12/02/19 Amlodipine Besylate [Norvasc -] 5 mg PO DAILY 01/10/20 Clonidine Patch [Catapres Tts Patch -] 0.3 mg TD WE 01/10/20 Spironolactone 25 mg PO DAILY 01/10/20 Furosemide 80 mg PO DAILY #30 tablet 01/15/20 Hydralazine HCl 50 mg PO TID 01/15/20 Anemia: No Asthma: No Cancer: No Cardiac Disorders: Yes (CHF, LVH) CVA: Yes (CVA + TIA) COPD: No CHF: Yes DVT: No Dementia: No Diabetes: Yes GI Disorders: No Disorders: No HTN: Yes Hypercholesterolemia: Yes Liver Disease: No Seizures: No Thyroid Disease: No - Surgical History Abdominal Surgery: No Appendectomy: No Cardiac Surgery: No Cholecystectomy: No Lung Surgery: No Neurologic Surgery: No Orthopedic Surgery: No - Psycho-Social/Smoking History Smoking History: Never smoked Have you smoked in the past 12 months: No Number of Cigarettes Smoked Daily: 10 Information on smoking cessation initiated: No 'Breaking Loose' booklet given: 11/28/19 - Substance Abuse Hx (Audit-C & DAST Scrn) How often the patient has a drink containing alcohol: Never Score: In Men: 4 or > Positive; In Women: 3 or > Positive: 0 Screen Result (Pos requires Nsg. Audit-10AR): Negative In the last yr the pt used illegal drug/Rx for NonMed reason: No Score: Yes response is considered Positive: 0 Screen Result (Positive result requires Nsg. DAST-10): Negative *Physical Exam - Vital Signs Last Vital Signs Temp Pulse Resp BP Pulse Ox 98.0 F 61 16 132/76 99 01/10/20 12:46 01/10/20 12:46 01/10/20 12:46 01/10/20 12:46 01/10/20 13:02 ED Treatment Course - LABORATORY CBC & Chemistry Diagram: 01/15/20 13:30 01/15/20 13:30 - ADDITIONAL ORDERS Additional order review: Laboratory Results 01/10/20 13:10 PT with INR 13.80 H INR 1.17 H PTT (Actin FS) 38.3 H 01/10/20 13:10 RBC 3.03 L MCV 82.5 MCHC 33.5 RDW 15.2 MPV 8.2 Neutrophils % 80.2 Lymphocytes % 9.4 Monocytes % 5.8 Eosinophils % 3.9 Basophils % 0.7 Discharge - Discharge Information Problems reviewed: Yes Clinical Impression/Diagnosis: TIA (transient ischemic attack), SENA (acute kidney injury), Dizziness Condition: Improved Disposition: HOME - Follow up/Referral - Patient Discharge Instructions - Post Discharge Activity
[2020-01-10 14:02] LABS: ALBUMIN 3.2 g/dl (3.4-5.0); ALK PHOS 106 U/L (45-117); ANION GAP 4 MMOL/L (8-16); BLOOD UREA NITROGEN 59.1 mg/dL (7-18); CALCIUM 8.8 mg/dL (8.5-10.1); CHLORIDE 112 mmol/L (98-107); CHOLESTEROL 217 mg/dL (50-200); CO2 25 mmol/L (21-32); CREATININE 3.7 mg/dL (0.55-1.3); GLUCOSE,RANDOM 139 mg/dL (74-106); HDL CHOLESTEROL 116 mg/dL (40-60); LDL CHOLESTEROL (ONLY SJRH) 86 mg/dL (5-100); POTASSIUM 4.8 mmol/L (3.5-5.1); SGOT/AST 21 U/L (15-37); SGPT/ALT 31 U/L (13-61); SODIUM 141 mmol/L (136-145); TOT PROT 6.5 g/dl (6.4-8.2); TRIGLYCERIDES 97 mg/dL (0-150)
[2020-01-10 14:07] LABS: BILIRUBIN,TOTAL 0.3 mg/dL (0.2-1)
[2020-01-10] MEDS ORDERED: SODIUM CHLORIDE 0.9% 500 ML INFUS.BAG IV ONE (14:15)
--- NOTE | 2020-01-10 16:07 | HP ---
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 He reports holding on to the ladder and sliding down, and he never lost consciousness. He denies head trauma. He was able to hold himself up along the wall and walk to his home where he lied down on the sofa and called his . She said she was having difficulty understanding him and left work to find him on the sofa at home. He reports increased left side weakness and numbness in the arm during the event. Last known well was 7:50. Pt arrived to ED and symptoms improved. He currently is back at baseline. He denies recent illness, fever, chills, decreased PO intake, cough, chest pain, n/v/d, dysuria. NIHSS 1. at bedside. ER course was notable for: (1) CT head- Moderate periventricular chronic microvascular ischemic disease changes that appears to be also involving the right thalamus, posteriorly without interval change. Lacunar infarct in the anterior aspect of the left thalamus likely chronic. However was not seen on prior CT scan and MRI of the brain. 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, HTN, HLD, CHF (EF 50-55% 11/2019), T2DM, CKD, and legal blindness PAST SURGICAL HISTORY: abdominal cyst Social History: Smokin-4 cigarettes daily, started smoking at 15 Alcohol: denies Drugs: denies Allergies No Known Allergies Allergy (Verified 11/28/19 10:39) HOME MEDICATIONS: Home Medications Medication Instructions Recorded Alogliptin Benzoate [Alogliptin] 6.25 mg PO DAILY 12/02/19 Amlodipine Besylate [Norvasc -] 10 mg PO DAILY #30 tablet 12/02/19 Aspirin [ASA -] 81 mg PO DAILY 12/02/19 Atorvastatin Ca [Lipitor] 40 mg PO HS 12/02/19 Clopidogrel Bisulfate [Plavix] 75 mg PO DAILY 12/02/19 Docusate Sodium [Colace -] 200 mg PO DAILY #28 capsule 12/02/19 Ergocalciferol (Vitamin D2) 50,000 unit PO WE 12/02/19 [Vitamin D2] Furosemide [Lasix -] 80 mg PO BID@0600,1400 #120 tablet 12/02/19 Gabapentin 200 mg PO BID 12/02/19 Labetalol HCl [Normodyne -] 400 mg PO TID #120 tablet 12/02/19 Meclizine HCl 12.5 mg PO Q6H PRN 12/02/19 Metformin HCl [Glucophage] 1,000 mg PO BID 12/02/19 Sodium Bicarbonate - 1,300 mg PO BID 12/02/19 Tamsulosin HCl [Flomax] 0.4 mg PO DAILY 12/02/19 cloNIDine HCL [Catapres -] 0.1 mg PO TID #90 tablet 12/02/19 hydrALAZINE HCL [Apresoline -] 75 mg PO TID #180 tablet 12/02/19 REVIEW OF SYSTEMS see HPI PHYSICAL EXAMINATION Vital Signs - 24 hr 01/10/20 01/10/20 12:46 13:02 Temperature 98.0 F Pulse Rate 61 Respiratory 16 Rate Blood Pressure 132/76 O2 Sat by Pulse 100 99 Oximetry (%) GENERAL: A&Ox3, in no acute distress. HEAD: Normal with no signs of trauma. No facial droop. EYES: PERRL, EOMI. Decreased left field of vision. EARS, NOSE, THROAT: Ears normal, nares patent, moist mucous membranes. NECK: Normal range of motion. LUNGS: CTAB, no wheezes or crackles. HEART: RRR, no murmur appreciated. ABDOMEN: Soft, nontender, not distended, normoactive bowel sounds. MUSCULOSKELETAL: Normal range of motion at all joints. UPPER EXTREMITIES: Warm, well-perfused. No peripheral edema. Strength 5/5 except left shoulder abduction 4/5. LOWER EXTREMITIES: Warm, well-perfused. +1 pitting edema third of the way up lower legs and in feet. NEUROLOGICAL: Cranial nerves II-XII intact. Normal speech. PSYCHIATRIC: Cooperative. Good eye contact. Appropriate mood and affect. SKIN: Warm, dry, normal turgor. Laboratory Results - last 24 hr 01/10/20 01/10/20 01/10/20 13:10 13:10 13:10 WBC 5.8 RBC 3.03 L Hgb 8.4 L Hct 25.0 L MCV 82.5 MCH 27.6 MCHC 33.5 RDW 15.2 Plt Count 224 MPV 8.2 Absolute Neuts (auto) 4.7 Neutrophils % 80.2 Lymphocytes % 9.4 Monocytes % 5.8 Eosinophils % 3.9 Basophils % 0.7 Nucleated RBC % 0 PT with INR 13.80 H INR 1.17 H PTT (Actin FS) 38.3 H Sodium 141 Potassium 4.8 Chloride 112 H Carbon Dioxide 25 Anion Gap 4 L BUN 59.1 H Creatinine 3.7 H Est GFR (CKD-EPI)AfAm 20.10 Est GFR (CKD-EPI)NonAf 17.34 Random Glucose 139 H Calcium 8.8 Total Bilirubin 0.3 AST 21 ALT 31 Alkaline Phosphatase 106 Creatine Kinase 364 H Creatine Kinase Index 1.9 CK-MB (CK-2) 7.0 H Troponin I < 0.02 Total Protein 6.5 Albumin 3.2 L Triglycerides 97 Cholesterol 217 H Total LDL Cholesterol 86 HDL Cholesterol 116 H Blood Type Antibody Screen 01/10/20 13:10 WBC RBC Hgb Hct MCV MCH MCHC RDW Plt Count MPV Absolute Neuts (auto) Neutrophils % Lymphocytes % Monocytes % Eosinophils % Basophils % Nucleated RBC % PT with INR INR PTT (Actin FS) Sodium Potassium Chloride Carbon Dioxide Anion Gap BUN Creatinine Est GFR (CKD-EPI)AfAm Est GFR (CKD-EPI)NonAf Random Glucose Calcium Total Bilirubin AST ALT Alkaline Phosphatase Creatine Kinase Creatine Kinase Index CK-MB (CK-2) Troponin I Total Protein Albumin Triglycerides Cholesterol Total LDL Cholesterol HDL Cholesterol Blood Type A POSITIVE Antibody Screen Negative ASSESSMENT/PLAN: Pt is a 55 y/o male with 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 He is admitted for pre-syncope and SENA. #pre-syncope #hx CVA/TIA -did not lose consciousness -?autonomic dysfunction vs dehydration from diuretics -CT shows chronic infarcts, no new today -on ASA, statin, Plavix -neuro (Dr. Clancy) consulted- autonomic dysfunction vs unknown cause, ordered MRI and carotid U/S -MRI -carotid U/S #SENA on CKD -?stage 3-4 CKD based off record -Cr 3.7 -takes lasix 80mg BID at home -continue Lasix -continue sodium bicarb -I/Os -nephrology consult #HTN -continue labetalol, amlodipine, clonidine patch -d/c fluids because hypertensive to 190s #anemia of chronic disease -likely from CKD -Hb 8.4, monitor #IDDM -BGMs -SSI -gabapentin #?BPH -tamsulosin #tobacco use disorder -education on quitting given DVT Ppx heparin FEN no standing fluids monitor Cr sodium/diabetic diet dispo med/surg FULL CODE ATTENDING PHYSICIAN STATEMENT I saw and evaluated the patient. I reviewed the resident's note and discussed the case with the resident. I agree with the resident's findings and plan as documented. SUBJECTIVE: OBJECTIVE: ASSESSMENT AND PLAN:
[2020-01-10] MEDS ORDERED: FUROSEMIDE 40 MG TABLET (FP) ONE (16:36)
[2020-01-10] MEDS: FUROSEMIDE 40 MG TABLET (FP) PO ONE ×2 (16:39→17:58)
[2020-01-10] MEDS: INSULIN SLIDING SCALE (NOVOLOG) 1 VIAL SQ SCH ×2 (16:39→23:35)
--- NOTE | 2020-01-10 17:31 | CON.NEURO ---
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 Cardio/Vascular: Yes: HTN, Hyperlipdemia Endocrine: Yes: Diabetes Mellitus Additional Medical History: perirectal abscess 06/2017 - Alcohol/Substance Use Hx Alcohol Use: No - Smoking History Smoking history: Never smoked Have you smoked in the past 12 months: No Aproximately how many cigarettes per day: 10 - Social History Usual Living Arrangement: With Spouse ADL: Independent History of Recent Travel: No Home Medications - Allergies Allergies/Adverse Reactions: Allergies Allergy/AdvReac Type Severity Reaction Status Date / Time No Known Allergies Allergy Verified 11/28/19 10:39 - Home Medications Home Medications: Ambulatory Orders Alogliptin Benzoate [Alogliptin] 6.25 mg PO DAILY 12/02/19 Aspirin [ASA -] 81 mg PO DAILY 12/02/19 Atorvastatin Ca [Lipitor] 80 mg PO HS 12/02/19 Clopidogrel Bisulfate [Plavix] 75 mg PO DAILY 12/02/19 Ergocalciferol (Vitamin D2) [Vitamin D2] 50,000 unit PO WE 12/02/19 Furosemide [Lasix -] 80 mg PO BID@0600,1400 #120 tablet 12/02/19 Gabapentin 200 mg PO BID 12/02/19 Labetalol HCl [Normodyne -] 400 mg PO TID #120 tablet 12/02/19 Sodium Bicarbonate - 1,300 mg PO BID 12/02/19 Tamsulosin HCl [Flomax] 0.4 mg PO DAILY 12/02/19 Amlodipine Besylate [Norvasc -] 5 mg PO DAILY 01/10/20 Clonidine Patch [Catapres Tts Patch -] 0.3 mg TD WE 01/10/20 Ergocalciferol (Vitamin D2) [Vitamin D2] 50,000 unit PO WE 01/10/20 Spironolactone 25 mg PO DAILY 01/10/20 Physical Exam-Neuro Vital Signs: Vital Signs Temperature 98.0 F 01/10/20 12:46 Pulse Rate 61 01/10/20 12:46 Respiratory Rate 16 01/10/20 12:46 Blood Pressure 132/76 01/10/20 12:46 O2 Sat by Pulse Oximetry (%) 99 01/10/20 13:02 Labs: CBC, BMP 01/10/20 13:10 01/10/20 13:10 INR, PTT INR 1.17 (0.83-1.09) H 01/10/20 13:10 Assessment/Plan cc dizziness, now resolved HPI 54 Year old male history of HTN, HLD, DM, Stroke in past with left residual weakness, chf, legal blindness . 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 Patient came with feeling of dizziness, he describes as lighheadedness with change in posture. No hearing difficulty, no tnnitis, no swaying to one side. Ct scan showed white matter disease . patient symptoms resolved, he has multiple stroke in past and and had left mild weakness. He was workin on ladder and slided down to ladder . He also have some difficulty understanding his , his symtoms resolved. he also felt worsenign of left sided weakness. At admission his nih score was 4 ER course was notable for: (1) CT head- Moderate periventricular chronic microvascular ischemic disease changes that appears to be also involving the right thalamus, posteriorly without interval change. Lacunar infarct in the anterior aspect of the left thalamus likely chronic. However was not seen on prior CT scan and MRI of the brain. 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 Munoz. Social History: Lives with , who asssits patient with activites daily living. Patient ambulates with cane (visually impaired). Smoking: Smokes 1 pack per day (gradual decrease from 5 packs per day since teenager) Alcohol: Quit alcohol consumption four years ago Drugs: Denies illicit drug use Allergies No Known Allergies Allergy (Verified 08/29/19 11:56) HOME MEDICATIONS: Home Medications Medication Instructions Recorded Atorvastatin Ca [Lipitor] 80 mg PO HS 07/10/17 Lisinopril [Prinivil] 10 mg PO DAILY 11/10/17 metFORMIN HCL [Metformin ER 500 mg PO BID 11/22/17 Osmotic] Aspirin 81 mg PO DAILY 05/14/19 Gabapentin 200 mg PO BID 05/14/19 Amlodipine Besylate [Norvasc -] 5 mg PO BID #60 tablet 05/17/19 Clopidogrel Bisulfate [Plavix -] 75 mg PO DAILY #30 tablet 05/17/19 Labetalol HCl [Normodyne -] 400 mg PO BID #120 tablet 05/17/19 cloNIDine HCL [Catapres -] 0.1 mg PO BID #60 tablet 05/17/19 ROS,FH,SH reviwed in chart NEUROLOGICAL EXAMINATION Alert oriented x 3, mild left sided facial palsy motor 5/5 on rightside, mild left sided weakness( old) ct head and ct neck no acute distress Assessment/Plan Most likley dizziness is non specific vs autonomic dysfunction , unlikely to be stroke, pateint has presyncope ? cardiovascular cause . Edelmira is on maximal medical therapy and on statin, aspirin and palvix Plan continue current maximal medical therapy - unlikley to be stroke, cerebellar dysfunction or post column disease, supportive care - repeat caotid ultrasound, as last one was in 2018, mri of brain can be obtained. Thanking you alo Clancy MD
[2020-01-10] MEDS ORDERED: HEPARIN NA (PORCINE) 5,000 UNITS/ML 1ML VIAL ONE (18:01)
[2020-01-10] MEDS ORDERED: LABETALOL HCL 200 MG TABLET (FP) PO ONE (18:01)
[2020-01-10] MEDS ORDERED: LABETALOL HCL 100 MG TABLET (FP) ONE (18:01)
[2020-01-10] MEDS: HEPARIN NA (PORCINE) 5,000 UNITS/ML 1ML VIAL SQ SCH (18:05)
[2020-01-10] MEDS: SODIUM BICARBONATE 650 MG TABLET PO SCH (20:10)
[2020-01-10] MEDS: ATORVASTATIN CA 80 MG TABLET (FP) PO SCH (23:35)
[2020-01-10] MEDS: GABAPENTIN 100 MG CAPSULE PO SCH (23:36)
[2020-01-10] MEDS: LABETALOL HCL 200 MG TABLET (FP) PO SCH (23:36)
--- OUTSIDE RECORDS SUMMARY | 2020-01-11 01:33 | XMS ---
:1965 Author Organization [facility] Care Team Providers Name Role Phone RACHAEL BAH Unavailable Unavailable ED STAFF PHYSICIAN, STAFF Unavailable Unavailable Omi, Vián Unavailable Omi, Iván Unavailable Omi, Iván Unavailable Omi, Iván Unavailable Omi, Vián Unavailable Otto Garcia Unavailable [phone] Lemuel, Osama Unavailable Unavailable Lemuel, Osama Unavailable Unavailable Lemuel, Osama Unavailable Unavailable Lemuel, Osama Unavailable Unavailable Lemuel, Osama Unavailable Unavailable Lemuel, Osama Unavailable Unavailable Lemuel, Osama Unavailable Unavailable Lemuel, Osama Unavailable Unavailable Lemuel, Osama Unavailable Unavailable Lemuel, Osama Unavailable Unavailable Lemuel, Osama Unavailable Unavailable Lemuel, Osama Unavailable Unavailable Lemuel, Osama Unavailable Unavailable Lemuel, Osama Unavailable Unavailable Lemuel, Osama Unavailable Unavailable Rachael Pate Unavailable [phone] Rachael Pate Unavailable [phone] MD Alex Samayoa MD Unavailable MD Alex Samayoa MD Unavailable MD Alex Samayoa MD Unavailable Re-disclosure Warning The records that you are about to access may contain information from federally- assisted alcohol or drug abuse programs. If such information is present, then the following federally mandated warning applies: This information has been disclosed to you from records protected by federal confidentiality rules (42 CFR part 2). The federal rules prohibit you from making any further disclosure of this information unless further disclosure is expressly permitted by the written consent of the person to whom it pertains or as otherwise permitted by 42 CFR part 2. A general authorization for the release of medical or other information is NOT sufficient for this purpose. The Federal rules restrict any use of the information to criminally investigate or prosecute any alcohol or drug abuse patient.The records that you are about to access may contain highly sensitive health information, the redisclosure of which is protected by Article 27-F of the [facility] Public Health law. If you continue you may haveaccess to information: Regarding HIV / AIDS; Provided by facilities licensed or operated by the [facility] Office of Mental Health; or Provided by the [facility] Office for People With Developmental Disabilities. If such information is present, then the following [facility] mandated warning applies: This information has been disclosed to you from confidential records which are protected by state law. State law prohibits you from making any further disclosure of this information without the specific written consent of the person to whom it pertains, or as otherwise permitted by law. Any unauthorized further disclosure in violation of state law may result in a fine or nursing home sentence or both. A general authorization for the release of medical or other information is NOT sufficient authorization for further disclosure. Allergies and Adverse Reactions Type Description Substance Reaction Status Data Source(s ) Propensity to Propensity to Propensity to NEXTG EN ([facility] adverse reactions adverse reactions adverse reactions [facility] (disorder) (disorder) (disorder) Center) Encounters Encounter Providers Location Date Indications Data Source(s ) Attender: MD Johnson 12/11/2019 [facility] 12:[facility]:00 AM [facility], ) Office Attender: MD Alex Samayoa 12/11/2019 12:00:00 A M [facility] ([facility] ) Office Attender: MD Alex Samayoa 12/11/2019 12:00:00 A M EDT [facility] ([facility] ) Office Attender: MD Alex Samayoa 12/11/2019 12:00:00 A M EDT [facility] ) Office Attender: MD Alex Samayoa 12/11/2019 12:00:00 A M EDT [facility] ) Office Attender: MD Alex Samayoa 12/11/2019 12:00:00 A M EDT [facility] ) Office Attender: MD Alex Samayoa 12/11/2019 12:00:00 A M EDT [facility] ) Office Attender: MD Alex Samayoa 12/11/2019 12:00:00 A M EDT [facility] ) Office Attender: MD Alex Samayoa 12/11/2019 12:00:00 A M EDT [facility] ) Office Attender: MD Alex Samayoa 12/11/2019 12:00:00 A M EDT [facility] ) Office Attender: MD Alex Samayoa 12/11/2019 12:00:00 A M EDT [facility] ) Office Attender: MD Alex Samayoa 12/11/2019 12:00:00 A M EDT [facility] ) Office Attender: Iván Braga 12/09/2019 12:00:00 AM E DT [facility] ([facility] ) Office Attender: Iván Braga 12/09/2019 12:00:00 AM E DT [facility] ([facility], ) Office Attender: Iván Braga 12/09/2019 12:00:00 AM E DT [facility] ([facility], ) Office Attender: Iván Braga 12/09/2019 12:00:00 AM E DT [facility] ([facility], ) Office Attender: Iván Braga 12/09/2019 12:00:00 AM E DT [facility] ([facility] Office Attender: Iván Braga 12/09/2019 12:00:00 AM E DT [facility] ([facility] Office Attender: Iván Braga 12/09/2019 12:00:00 AM E DT [facility] ([facility] Office Attender: Iván Braga 12/09/2019 12:00:00 AM E DT [facility] ([facility] Office Attender: Iván Braga 12/09/2019 12:00:00 AM E DT [facility] ([facility] Office Attender: Iván Braga 12/09/2019 12:00:00 AM E DT [facility] ([facility] Office Attender: Iván Braga 12/09/2019 12:00:00 AM E DT [facility] ([facility] Office Attender: Iván Braga 12/09/2019 12:00:00 AM E DT [facility] ([facility] Office Attender: Iván Braga 12/09/2019 12:00:00 AM E DT [facility] ([facility] Office Attender: Iván Braga 12/09/2019 12:00:00 AM E DT [facility] ([facility] Office Attender: Iván Braga 12/09/2019 12:00:00 AM E DT [facility] ([facility] Office Attender: Iván Braga 12/09/2019 12:00:00 AM E DT [facility] ([facility] Office Attender: Iván Braga 12/09/2019 12:00:00 AM E DT [facility] ([facility] Office Attender: Iván Braga 12/09/2019 12:00:00 AM E DT [facility] ([facility] Office Attender: MD Alex Samayoa 11/25/2019 12:00:00 A M EDT [facility] Office Attender: MD Alex Samayoa 11/25/2019 12:00:00 A M EDT [facility] ([facility], ) Office Attender: MD Alex Samayoa 11/25/2019 12:00:00 A M EDT [facility] ([facility], ) Office Attender: MD Alex Samayoa 11/25/2019 12:00:00 A M EDT [facility] ) Office Attender: MD Alex Samayoa 11/25/2019 12:00:00 A M EDT [facility] ([facility] ) Office Attender: MD Alex Samayoa 11/25/2019 12:00:00 A M EDT [facility] ([facility] ) Office Attender: MD Alex Samayoa 11/25/2019 12:00:00 A M EDT [facility] ([facility] ) Office Attender: MD Alex Samayoa 11/25/2019 12:00:00 A M EDT [facility] ([facility] ) Office Attender: MD Alex Samayoa 11/25/2019 12:00:00 A M EDT [facility] ([facility] ) Office Attender: MD Alex Samayoa 11/25/2019 12:00:00 A M EDT [facility] ([facility] ) Office Attender: MD Alex Samayoa 11/25/2019 12:00:00 A M EDT [facility] ([facility] ) Office Attender: MD Alex Samayoa 11/25/2019 12:00:00 A M EDT [facility] ([facility] ) Office Attender: MD Alex Samayoa 11/25/2019 12:00:00 A M EDT [facility] ([facility] ) Office Attender: MD Alex Samayoa 11/25/2019 12:00:00 A M EDT [facility] ([facility] ) Office Attender: MD Alex Samayoa 11/25/2019 12:00:00 A M EDT [facility] ([facility] ) Office Attender: MD Alex Samayoa 11/25/2019 12:00:00 A M EDT [facility] ([facility] ) Office Attender: MD Alex Samayoa 11/25/2019 12:00:00 A M EDT [facility] ([facility] ) Office Attender: MD Alex Samayoa 11/25/2019 12:00:00 A M EDT [facility] ([facility] ) Office Attender: MD Alex Samayoa 11/25/2019 12:00:00 A M EDT [facility] ([facility] ) Office Attender: MD Alex Samayoa 11/25/2019 12:00:00 A M EDT [facility] ([facility] ) Office Attender: MD Alex Samayoa 11/06/2019 12:00:00 A M EDT [facility] ([facility] ) Office Attender: MD Alex Samayoa 11/06/2019 12:00:00 A M EDT [facility] ([facility] ) Office Attender: MD Alex Samayoa 11/06/2019 12:00:00 A M EDT [facility] ([facility] ) Office Attender: MD Alex Samayoa 11/06/2019 12:00:00 A M EDT [facility] ([facility] ) Office Attender: MD Alex Samayoa 11/06/2019 12:00:00 A M EDT [facility] ([facility] ) Office Attender: MD Alex Samayoa 11/06/2019 12:00:00 A M EDT [facility] ([facility] ) Office Attender: MD Alex Samayoa 11/06/2019 12:00:00 A M EDT [facility] ([facility] ) Office Attender: MD Alex Samayoa 11/06/2019 12:00:00 A M EDT [facility] ([facility] ) Office Attender: MD Alex Samayoa 11/06/2019 12:00:00 A M EDT [facility] ([facility] ) Office Attender: MD Alex Samayoa 11/06/2019 12:00:00 A M EDT [facility] ) Office Attender: MD Alex Samayoa 11/06/2019 12:00:00 A M EDT [facility] ) Office Attender: MD Alex Samayoa 11/06/2019 12:00:00 A M EDT [facility] ([facility] ) Office Attender: MD Alex Samayoa 11/06/2019 12:00:00 A M EDT [facility] ) Office Attender: MD Alex Samayoa 11/06/2019 12:00:00 A M EDT [facility] ) Office Attender: MD Alex Samayoa 11/06/2019 12:00:00 A M EDT [facility] ) Office Attender: MD Alex Samayoa 11/06/2019 12:00:00 A M EDT [facility] ) Office Inpatient Attender: Gab[facility] H-HAL6 [facility] STAFF PHYSICIANAdmitter: 03:45:00 PM EDT Gabi Ramerrer: Gabi Hdez Patient discharged. Attender: MD Alex Samayoa 10/30/2019 12:00:00 A M EDT [facility] ) Phone Attender: MD Alex Samayoa 10/30/2019 12:00:00 A M EDT [facility] ([facility] ) Phone Attender: MD Alex Samayoa 10/16/2019 12:00:00 A M EDT [facility] ([facility] ) Office Attender: MD Alex Samayoa 10/16/2019 12:00:00 A M EDT [facility] ([facility] ) Office Attender: MD Alex Samayoa 10/16/2019 12:00:00 A M EDT [facility] ) Office Attender: MD Alex Samayoa 10/16/2019 12:00:00 A M EDT [facility] ) Office Attender: MD Alex Samayoa 10/16/2019 12:00:00 A M EDT [facility], ) Office Attender: MD Alex Samayoa 10/16/2019 12:00:00 A M EDT [facility], ) Office Attender: MD Alex Samayoa 10/16/2019 12:00:00 A M EDT MED ([facility], ) Office Attender: MD Alex Samayoa 10/16/2019 12:00:00 A M EDT [facility] ) Office Psychiatric Attender: [facility] 07/13/2018 [facility] EN [facility] Medic al 04:18:00 PM EDT Center) Mental Health 07/09/2018 NEXTGEN ( int Clinic 01:57:00 PM EDT [facility] 07/09/2018 Medical 01:57:00 PM EDT Center) Mental Health 06/27/2018 NEXTGEN ( int Clinic 11:59:00 AM EST [facility] 06/27/2018 Medical 11:59:00 AM EST Center) Outpatient Attender: RACHAEL Almaguer 06/27/2018 [facility] [place] [facility] 10:05:00 AM [facility] Ariannaitter: RACHAEL ESTRADA Attender: Rachael 06/27/2018 [facility] 06/27/2018 Medical 10:05:00 AM EST Center) 06/27/2018 [facility] 12:00:00 AM EST Medical C enter Emergency H 06/15/2018 [facility] 04:59:00 PM EST Medical C enter Medications Medication Brand Start Product Dose Route [facility] Indications Reaction Description Data Name Date Form Instructions Instructions Source(s) Labetalol LABETA 12/10/ TABLET 180 complet LABETA LOL [facility] (St hydrochlori LOL:2019 [facility] de 200 MG 6762 12:00: Medical, Oral Tablet 00 AM PC) LABETALOL:8 EDT 87053 Spironolact SPIRON 12/10/ TABLET 90 complet SPIR ONOLACTO [facility] (St one 25 MG OLACTO 2019 ed NE [facility] Oral Tablet NE:313 12:00: Medi vasile, SPIRONOLACT 096 00 AM PC) ONE:[id number] EDT 168 HR CLONID 12/10/ FILM, 12 complet CLONIDINE [facility] (St Clonidine INE:99 2019 EXTENDED ed [facility] 0.0125 8679 12:00: RELEASE Medical, MG/HR 00 AM PC) Transdermal EDT Patch CLONIDINE:9 86666 Spironolact SPIRON 12/10/ TABLET 90 complet SPIR ONOLACTO [facility] (St one 25 MG OLACTO 2019 ed NE [facility] Oral Tablet NE:313 12:00: Medi vasile, SPIRONOLACT 096 00 AM PC) ONE:062836 EDT Labetalol LABETA 12/10/ TABLET 180 complet LABETA LOL [facility] (St hydrochlori LOL:89 2019 ed [facility] de 200 MG 6762 12:00: Medical, Oral Tablet 00 AM PC) LABETALOL:8 EDT 65999 168 HR CLONID 12/10/ FILM, 12 complet CLONIDINE [facility] (St Clonidine INE:99 2019 EXTENDED ed [facility] 0.0125 8679 12:00: RELEASE Medical, MG/HR 00 AM PC) Transdermal EDT Patch CLONIDINE:9 37661 Furosemide LASIX: 12/08/ TABLET 60 complet LASIX [facility] (St 80 MG Oral 102176 9223 ed [facility] Tablet 12:00: Medical, [Lasix] 00 AM PC) LASIX: EDT 2 Hydralazine HYDRAL 12/08/ TABLET 90 complet HYDR ALAZINE [facility] (St Hydrochlori AZINE: 2019 ed [facility] de 50 MG [id number] 12:00: Medical , Oral Tablet 00 AM PC) HYDRALAZINE EDT :114576 Hydralazine HYDRAL 12/08/ TABLET 90 complet HYDR ALAZINE [facility] (St Hydrochlori AZINE: 2019 ed [facility] de 50 MG 713617 12:00: Medical , Oral Tablet 00 AM PC) HYDRALAZINE EDT :333997 gabapentin GABAPE 12/08/ CAPSULE 30 complet PAULETTE PENTIN [facility] (St 100 MG Oral NTIN:3 2019 ed [facility] Capsule 78810 12:00: Medical, GABAPENTIN: 00 AM PC) 096979 EDT Tamsulosin TAMSUL 12/08/ CAPSULE 30 complet TAMS ULOSIN [facility] (St hydrochlori OSIN:8 2019 ed [facility] de 0.4 MG 91485 12:00: Medical , Oral 00 AM PC) Capsule EDT TAMSULOSIN: 055652 Clonidine CLONID 17/ TABLET 90 complet CLONID INE [facility] (St Hydrochlori INE:88 2019 ed [facility] de 0.1 MG 4173 12:00: Medical, Oral Tablet 00 AM PC) CLONIDINE:8 EDT 33819 gabapentin GABAPE 12/08/ CAPSULE 30 complet PAULETTE PENTIN [facility] (St 100 MG Oral NTIN:3 2019 ed [facility] Capsule 76594 12:00: Medical, GABAPENTIN: 00 AM PC) 792997 EDT Amlodipine AMLODI 12/08/ TABLET 30 complet AMLOD IPINE [facility] (St 10 MG Oral PINE:3 2019 ed [facility] Tablet 18618 12:00: Medical, AMLODIPINE: 00 AM PC) 799451 EDT Amlodipine AMLODI 17/ TABLET 30 complet AMLOD IPINE [facility] (St 10 MG Oral PINE:3 2019 ed [facility] Tablet 51456 12:00: Medical, AMLODIPINE: 00 AM PC) 740990 EDT Clonidine CLONID 12/08/ TABLET 90 complet CLONID INE [facility] (St Hydrochlori INE:88 2019 ed [facility] de 0.1 MG 4173 12:00: Medical, Oral Tablet 00 AM PC) CLONIDINE:8 EDT 98348 Amlodipine AMLODI 12/08/ TABLET 30 complet AMLOD IPINE [facility] (St 10 MG Oral PINE:3 2019 ed [facility] Tablet 94923 12:00: Medical, AMLODIPINE: 00 AM PC) 861773 EDT Tamsulosin TAMSUL 12/08/ CAPSULE 30 complet TAMS ULOSIN [facility] (St hydrochlori OSIN:8 2019 ed [facility] de 0.4 MG 49255 12:00: Medical , Oral 00 AM PC) Capsule EDT TAMSULOSIN: 401797 Furosemide LASIX: 12/08/ TABLET 60 complet LASIX [facility] (St 80 MG Oral 022842 1712 ed [facility] Tablet 12:00: Medical, [Lasix] 00 AM PC) LASIX: EDT 2 Hydralazine HYDRAL 12/08/ TABLET 90 complet HYDR ALAZINE [facility] (St Hydrochlori AZINE: 2020 ed [facility] de 50 MG 219819 12:00: Medical , Oral Tablet 00 AM PC) HYDRALAZINE EDT :731930 gabapentin GABAPE 12/08/ CAPSULE 30 complet PAULETTE PENTIN [facility] (St 100 MG Oral NTIN:3 2019 ed [facility] Capsule 24335 12:00: Medical, GABAPENTIN: 00 AM PC) 720771 EDT Clonidine CLONID 12/08/ TABLET 90 complet CLONID INE [facility] (St Hydrochlori INE:88 2019 ed [facility] de 0.1 MG 4173 12:00: Medical, Oral Tablet 00 AM PC) CLONIDINE:8 EDT 61668 Amlodipine AMLODI 12/08/ TABLET 30 complet AMLOD IPINE [facility] (St 10 MG Oral PINE:3 2019 ed [facility] Tablet 23915 12:00: Medical, AMLODIPINE: 00 AM PC) 416978 EDT Clonidine CLONID 12/08/ TABLET 90 complet CLONID INE [facility] (St Hydrochlori INE:88 2019 ed [facility] de 0.1 MG 4173 12:00: Medical, Oral Tablet 00 AM PC) CLONIDINE:8 EDT 39437 gabapentin GABAPE 12/08/ CAPSULE 30 complet PAULETTE PENTIN [facility] (St 100 MG Oral NTIN:3 2019 ed [facility] Capsule 55189 12:00: Medical, GABAPENTIN: 00 AM PC) 216196 EDT Hydralazine HYDRAL 12/08/ TABLET 90 complet HYDR ALAZINE [facility] (St Hydrochlori AZINE: 2019 ed [facility] de 50 MG 738860 12:00: Medical , Oral Tablet 00 AM PC) HYDRALAZINE EDT :684079 Tamsulosin TAMSUL 12/08/ CAPSULE 30 complet TAMS ULOSIN [facility] (St hydrochlori OSIN:8 2019 ed [facility] de 0.4 MG 79222 12:00: Medical , Oral 00 AM PC) Capsule EDT TAMSULOSIN: 141845 Furosemide LASIX: 12/08/ TABLET 60 complet LASIX [facility] (St 80 MG Oral 247370 4257 ed [facility] Tablet 12:00: Medical, [Lasix] 00 AM PC) LASIX: EDT 2 Tamsulosin TAMSUL 12/08/ CAPSULE 30 complet TAMS ULOSIN [facility] (St hydrochlori OSIN:8 2019 ed [facility] de 0.4 MG 57920 12:00: Medical , Oral 00 AM PC) Capsule EDT TAMSULOSIN: 836189 Furosemide LASIX: 12/08/ TABLET 60 complet LASIX [facility] (St 80 MG Oral 760053 4253 ed [facility] Tablet 12:00: Medical, [Lasix] 00 AM PC) LASIX: EDT 2 Hydralazine HYDRAL 11/24/ TABLET 180 complet HYDR ALAZINE [facility] (St Hydrochlori AZINE: 2019 ed [facility] de 50 MG 992231 12:00: Medical , Oral Tablet 00 AM PC) HYDRALAZINE EDT :304748 BLOOD complet BLOOD [facility] ( St PRESSURE 2020 ed PRESSURE KIT [facility] KIT DEVICE: 12:00: DEVICE Medi vasile, 00 AM PC) EDT BLOOD complet BLOOD [facility] ( St PRESSURE 2020 ed PRESSURE KIT [facility] KIT DEVICE: 12:00: DEVICE Medi vasile, 00 AM PC) EDT BLOOD complet BLOOD [facility] ( St PRESSURE 2020 ed PRESSURE KIT [facility] KIT DEVICE: 12:00: DEVICE Medi vasile, 00 AM PC) EDT Furosemide FUROSE 11/24/ TABLET 180 complet FUROS EMIDE [facility] (St 40 MG Oral MIDE:3 2019 ed [facility] Tablet 69216 12:00: Medical, FUROSEMIDE: 00 AM PC) 657084 EDT Hydralazine HYDRAL 11/24/ TABLET 180 complet HYDR ALAZINE [facility] (St Hydrochlori AZINE: 2019 ed [facility] de 50 MG 379036 12:00: Medical , Oral Tablet 00 AM PC) HYDRALAZINE EDT :318004 BLOOD complet BLOOD [facility] ( St PRESSURE 2020 ed PRESSURE KIT [facility] KIT DEVICE: 12:00: DEVICE Medi vasile, 00 AM PC) EDT Furosemide FUROSE /03/ TABLET 180 complet FUROS EMIDE [facility] (St 40 MG Oral MIDE:3 2019 ed [facility] Tablet 74898 12:00: Medical, FUROSEMIDE: 00 AM PC) 726629 EDT Furosemide FUROSE /03/ TABLET 180 complet FUROS EMIDE [facility] (St 40 MG Oral MIDE:3 2019 ed [facility] Tablet 13226 12:00: Medical, FUROSEMIDE: 00 AM PC) 592313 EDT BLOOD complet BLOOD [facility] ( St PRESSURE 2020 ed PRESSURE KIT [facility] KIT DEVICE: 12:00: DEVICE Medi vasile, 00 AM PC) EDT Hydralazine HYDRAL 08/03/ TABLET 180 complet HYDR ALAZINE [facility] (St Hydrochlori AZINE: 2019 ed [facility] de 50 MG 965024 12:00: Medical , Oral Tablet 00 AM PC) HYDRALAZINE EDT :876113 Hydralazine HYDRAL 08/03/ TABLET 180 complet HYDR ALAZINE [facility] (St Hydrochlori AZINE: 2019 ed [facility] de 50 MG 318923 12:00: Medical , Oral Tablet 00 AM PC) HYDRALAZINE EDT :608895 BLOOD complet BLOOD [facility] ( St PRESSURE 2020 ed PRESSURE KIT [facility] KIT DEVICE: 12:00: DEVICE Medi vasile, 00 AM PC) EDT Furosemide FUROSE 0803/ TABLET 180 complet FUROS EMIDE [facility] (St 40 MG Oral MIDE:3 2019 ed [facility] Tablet 66571 12:00: Medical, FUROSEMIDE: 00 AM PC) 872230 EDT BLOOD complet BLOOD [facility] ( St PRESSURE 2020 ed PRESSURE KIT [facility] KIT DEVICE: 12:00: DEVICE Medi vasile, 00 AM PC) EDT Hydralazine HYDRAL 08/03/ TABLET 180 complet HYDR ALAZINE [facility] (St Hydrochlori AZINE: 2019 ed [facility] de 50 MG 164305 12:00: Medical , Oral Tablet 00 AM PC) HYDRALAZINE EDT :901214 Furosemide FUROSE 08/03/ TABLET 180 complet FUROS EMIDE [facility] (St 40 MG Oral MIDE:3 2019 ed [facility] Tablet 52790 12:00: Medical, FUROSEMIDE: 00 AM PC) 952551 EDT BLOOD complet BLOOD [facility] ( St PRESSURE 2020 ed PRESSURE KIT [facility] KIT DEVICE: 12:00: DEVICE Medi vasile, 00 AM PC) EDT Hydralazine HYDRAL 08/03/ TABLET 180 complet HYDR ALAZINE [facility] (St Hydrochlori AZINE: 2019 ed [facility] de 50 MG 926690 12:00: Medical , Oral Tablet 00 AM PC) HYDRALAZINE EDT :456704 Furosemide FUROSE 11/24/ TABLET 180 complet FUROS EMIDE [facility] (St 40 MG Oral MIDE:3 2019 ed [facility] Tablet 78210 12:00: Medical, FUROSEMIDE: 00 AM PC) 076695 EDT BLOOD complet BLOOD [facility] ( St PRESSURE 2020 ed PRESSURE KIT [facility] KIT DEVICE: 12:00: DEVICE Medi vasile, 00 AM PC) EDT BLOOD complet BLOOD [facility] ( St PRESSURE 2020 ed PRESSURE KIT [facility] KIT DEVICE: 12:00: DEVICE Medi vasile, 00 AM PC) EDT Labetalol LABETA 11/05/ TABLET 30 complet LABETA LOL [facility] (St hydrochlori LOL:89 2019 ed [facility] de 200 MG 6762 12:00: Medical, Oral Tablet 00 AM PC) LABETALOL:8 EDT 20574 Meclizine MECLIZ 11/05/ complet MECLIZIN E [facility] (St Hydrochlori INE:99 2019 ed [facility] de 12.5 MG 5624 12:00: Medical , Oral Tablet 00 AM PC) MECLIZINE:9 EDT 02381 Aspirin 81 ASPIRI 11/05/ complet ASPIRIN [facility] (St MG Delayed N:3084 2019 ed [facility] Release 16 12:00: Medical, Oral Tablet 00 AM PC) ASPIRIN:308 EDT 416 Ergocalcife ERGOCA 11/05/ CAPSULE 12 complet ERG OCALCIFER [facility] (St rol 98499 LCIFER 2020 ed OL [facility] UNT Oral OL:136 12:00: Medical , Capsule 7410 00 AM PC) ERGOCALCIFE EDT ROL:[id number] Meclizine MECLIZ 11/05/ complet MECLIZIN E [facility] (St Hydrochlori INE:99 2019 ed [facility] de 12.5 MG 5624 12:00: Medical , Oral Tablet 00 AM PC) MECLIZINE:9 EDT 16136 Meclizine MECLIZ 11/05/ complet MECLIZIN E [facility] (St Hydrochlori INE:99 2019 ed [facility] de 12.5 MG 5624 12:00: Medical , Oral Tablet 00 AM PC) MECLIZINE:9 EDT 99106 Labetalol LABETA 15/ TABLET 30 complet LABETA LOL [facility] (St hydrochlori LOL:89 2019 ed [facility] de 200 MG 6762 12:00: Medical, Oral Tablet 00 AM PC) LABETALOL:8 EDT 31123 gabapentin GABAPE 11/05/ CAPSULE 30 complet PAULETTE PENTIN [facility] (St 100 MG Oral NTIN:3 2019 ed [facility] Capsule 70723 12:00: Medical, GABAPENTIN: 00 AM PC) 742002 EDT Ergocalcife ERGOCA 11/05/ CAPSULE 12 complet ERG OCALCIFER [facility] (St rol 44682 LCIFER 2020 ed OL [facility] UNT Oral OL:136 12:00: Medical , Capsule 7410 00 AM PC) ERGOCALCIFE EDT ROL:[id number] Aspirin 81 ASPIRI 11/05/ complet ASPIRIN [facility] (St MG Delayed N:3084 2019 ed [facility] Release 16 12:00: Medical, Oral Tablet 00 AM PC) ASPIRIN:308 EDT 416 atorvastati ATORVA 11/05/ complet ATORVA STATIN [facility] (St n 80 MG STATIN 2019 ed [facility] Oral Tablet :52531 12:00: Medi vasile, ATORVASTATI 5 00 AM PC) N:212573 EDT alogliptin ALOGLI 11/05/ complet ALOGLIP TIN [facility] (St 6.25 MG PTIN:1 2019 ed [facility] Oral Tablet 811431 12:00: Medi vasile, ALOGLIPTIN: 00 AM PC) 7301432 EDT Aspirin 81 ASPIRI 11/05/ complet ASPIRIN [facility] (St MG Delayed N:3084 2019 ed [facility] Release 16 12:00: Medical, Oral Tablet 00 AM PC) ASPIRIN:308 EDT 416 Amlodipine AMLODI 11/05/ complet AMLODIP INE [facility] (St 5 MG Oral PINE:1 2019 ed [facility] Tablet 44611 12:00: Medical, AMLODIPINE: 00 AM PC) 088351 EDT Ergocalcife ERGOCA 15/ CAPSULE 12 complet ERG OCALCIFER [facility] (St rol 55439 LCIFER 2020 ed OL [facility] UNT Oral OL:136 12:00: Medical , Capsule 7410 00 AM PC) ERGOCALCIFE EDT ROL:[id number] Sodium SODIUM 11/05/ TABLET 180 complet SODIUM ME DGEN (St Bicarbonate BICARB 2020 ed BICARBONATE [facility] 650 MG Oral TREVOR: 12:00: Medi vasile, Tablet 930054 00 AM PC) SODIUM EDT BICARBONATE :456497 Ergocalcife ERGOCA 11/05/ CAPSULE 12 complet ERG OCALCIFER [facility] (St rol 66222 LCIFER 2020 ed OL [facility] UNT Oral OL:136 12:00: Medical , Capsule 7410 00 AM PC) ERGOCALCIFE EDT ROL:[id number] Sodium SODIUM 11/05/ TABLET 180 complet SODIUM ME DGEN (St Bicarbonate BICARB 2019 ed BICARBONATE [facility] 650 MG Oral TREVOR: 12:00: Medi vasile, Tablet [id number] 00 AM PC) SODIUM EDT BICARBONATE :[id number] Meclizine MECLIZ 11/05/ complet MECLIZIN E MEDGEN (St Hydrochlori INE:99 2019 ed Dony[facility] de 12.5 MG 5624 12:00: Medical , Oral Tablet 00 AM PC) MECLIZINE:9 EDT 63962 Labetalol LABETA 11/05/ TABLET 30 complet LABETA LOL MEDGEN (St hydrochlori LOL:89 2019 ed Dony[facility] de 200 MG 6762 12:00: Medical, Oral Tablet 00 AM PC) LABETALOL:8 EDT 50408 gabapentin GABAPE 11/05/ CAPSULE 30 complet PAULETTE PENTIN MEDGEN (St 100 MG Oral NTIN:3 2019 ed [facility] Capsule 25256 12:00: Medical, GABAPENTIN: 00 AM PC) [id number] EDT Amlodipine AMLODI 11/05/ complet AMLODIP INE MEDGEN (St 5 MG Oral PINE:1 2019 ed [facility] Tablet 00418 12:00: Medical, AMLODIPINE: 00 AM PC) [id number] EDT alogliptin ALOGLI 11/05/ complet ALOGLIP TIN MEDGEN (St 6.25 MG PTIN:1 2019 ed [facility] Oral Tablet 219672 12:00: Medi vasile, ALOGLIPTIN: 00 AM PC) [id number] EDT Ergocalcife ERGOCA 11/05/ CAPSULE 12 complet ERG OCALCIFER MEDGEN (St rol 71436 LCIFER 2020 ed OL [facility] UNT Oral OL:136 12:00: Medical , Capsule 7410 00 AM PC) ERGOCALCIFE EDT ROL:[id number] atorvastati ATORVA 11/05/ complet ATORVA STATIN MEDGEN (St n 80 MG STATIN 2019 ed [facility] Oral Tablet :27358 12:00: Medi vasile, ATORVASTATI 5 00 AM PC) N:[id number] EDT alogliptin ALOGLI 11/05/ complet ALOGLIP TIN MEDGEN (St 6.25 MG PTIN:1 2019 ed [facility] Oral Tablet 934665 12:00: Medi vasile, ALOGLIPTIN: 00 AM PC) [id number] EDT Aspirin 81 ASPIRI 11/05/ complet ASPIRIN MEDGEN (St MG Delayed N:3084 2019 ed [facility] Release 16 12:00: Medical, Oral Tablet 00 AM PC) ASPIRIN:308 EDT 416 Amlodipine AMLODI 11/05/ complet AMLODIP INE MEDGEN (St 5 MG Oral PINE:2019 ed [facility] Tablet 67403 12:00: Medical, AMLODIPINE: 00 AM PC) [id number] EDT atorvastati ATORVA 11/05/ complet ATORVA STATIN MEDGEN (St n 80 MG STATIN 2019 ed [facility] Oral Tablet :59528 12:00: Medi vasile, ATORVASTATI 5 00 AM PC) N:[id number] EDT Aspirin 81 ASPIRI 11/05/ complet ASPIRIN MEDGEN (St MG Delayed N:3084 2019 ed [facility] Release 16 12:00: Medical, Oral Tablet 00 AM PC) ASPIRIN:308 EDT 416 gabapentin GABAPE 11/05/ CAPSULE 30 complet PAULETTE PENTIN MEDGEN (St 100 MG Oral NTIN:3 2019 ed [facility] Capsule 53142 12:00: Medical, GABAPENTIN: 00 AM PC) [id number] EDT Labetalol LABETA 11/05/ TABLET 30 complet LABETA LOL MEDGEN (St hydrochlori LOL:89 2019 ed [facility] de 200 MG 6762 12:00: Medical, Oral Tablet 00 AM PC) LABETALOL:8 EDT 87359 alogliptin ALOGLI 11/05/ complet ALOGLIP TIN MEDGEN (St 6.25 MG PTIN:1 2019 ed [facility] Oral Tablet 740789 12:00: Medi vasile, ALOGLIPTIN: 00 AM PC) [id number] EDT Amlodipine AMLODI 11/05/ complet AMLODIP INE MEDGEN (St 5 MG Oral PINE:2019 ed [facility] Tablet 92245 12:00: Medical, AMLODIPINE: 00 AM PC) 023100 EDT Aspirin 81 ASPIRI 11/05/ complet ASPIRIN MEDGEN (St MG Delayed N:3084 2020 ed [facility] Release 16 12:00: Medical, Oral Tablet 00 AM PC) ASPIRIN:308 EDT 416 gabapentin GABAPE 15/ CAPSULE 30 complet PAULETTE PENTIN MEDGEN (St 100 MG Oral NTIN:3 2019 ed Odny[facility] Capsule 02077 12:00: Medical, GABAPENTIN: 00 AM PC) [id number] EDT atorvastati ATORVA 15/ complet ATORVA STATIN MEDGEN (St n 80 MG STATIN 2020 ed [facility] Oral Tablet :27918 12:00: Medi vasile, ATORVASTATI 5 00 AM PC) N:[id number] EDT Ergocalcife ERGOCA 11/05/ CAPSULE 12 complet ERG OCALCIFER MEDGEN (St rol 75391 LCIFER 2019 ed OL [facility] UNT Oral OL:136 12:00: Medical , Capsule 7410 00 AM PC) ERGOCALCIFE EDT ROL:[id number] Meclizine MECLIZ 11/05/ complet MECLIZIN E MEDGEN (St Hydrochlori INE:99 2019 ed [facility] de 12.5 MG 5624 12:00: Medical , Oral Tablet 00 AM PC) MECLIZINE:9 EDT 49876 Meclizine MECLIZ 11/05/ complet MECLIZIN E MEDGEN (St Hydrochlori INE:99 2019 ed [facility] de 12.5 MG 5624 12:00: Medical , Oral Tablet 00 AM PC) MECLIZINE:9 EDT 18639 Sodium SODIUM 15/ TABLET 180 complet SODIUM ME DGEN (St Bicarbonate BICARB 2020 ed BICARBONATE [facility] 650 MG Oral TREVOR: 12:00: Medi vasile, Tablet [id number] 00 AM PC) SODIUM EDT BICARBONATE :[id number] Labetalol LABETA 15/ TABLET 30 complet LABETA LOL MEDGEN (St hydrochlori LOL:89 2019 ed [facility] de 200 MG 6762 12:00: Medical, Oral Tablet 00 AM PC) LABETALOL:8 EDT 50066 gabapentin GABAPE /15/ CAPSULE 30 complet PAULETTE PENTIN MEDGEN (St 100 MG Oral NTIN:3 2019 ed [facility] Capsule 01346 12:00: Medical, GABAPENTIN: 00 AM PC) [id number] EDT Hydralazine HYDRAL 15/ TABLET 30 complet HYDR ALAZINE MEDGEN (St Hydrochlori AZINE: 2020 ed [facility] de 50 MG 321778 12:00: Medical , Oral Tablet 00 AM PC) HYDRALAZINE EDT :293832 Aspirin 81 ASPIRI 11/05/ complet ASPIRIN MEDGEN (St MG Delayed N:3084 2019 ed [facility] Release 16 12:00: Medical, Oral Tablet 00 AM PC) ASPIRIN:308 EDT 416 atorvastati ATORVA 11/05/ complet ATORVA STATIN MEDGEN (St n 80 MG STATIN 2019 ed [facility] Oral Tablet :50601 12:00: Medi vasile, ATORVASTATI 5 00 AM PC) N:[id number] EDT Labetalol LABETA 11/05/ TABLET 30 complet LABETA LOL MEDGEN (St hydrochlori LOL:89 2019 ed [facility] de 200 MG 6762 12:00: Medical, Oral Tablet 00 AM PC) LABETALOL:8 EDT 73143 Hydralazine HYDRAL 11/05/ TABLET 30 complet HYDR ALAZINE MEDGEN (St Hydrochlori AZINE: 2019 ed [facility] de 50 MG 784657 12:00: Medical , Oral Tablet 00 AM PC) HYDRALAZINE EDT :353003 Meclizine MECLIZ 11/05/ complet MECLIZIN E MEDGEN (St Hydrochlori INE:99 2019 ed [facility] de 12.5 MG 5624 12:00: Medical , Oral Tablet 00 AM PC) MECLIZINE:9 EDT 46452 gabapentin GABAPE 11/05/ CAPSULE 30 complet PAULETTE PENTIN MEDGEN (St 100 MG Oral NTIN:3 2019 ed [facility] Capsule 39753 12:00: Medical, GABAPENTIN: 00 AM PC) [id number] EDT Furosemide FUROSE 11/05/ TABLET 90 complet FUROS EMIDE MEDGEN (St 40 MG Oral MIDE:3 2019 ed [facility] Tablet 24938 12:00: Medical, FUROSEMIDE: 00 AM PC) [id number] EDT Sodium SODIUM 11/05/ TABLET 180 complet SODIUM ME DGEN (St Bicarbonate BICARB 2019 ed BICARBONATE [facility] 650 MG Oral TREVOR: 12:00: Medi vasile, Tablet [id number] 00 AM PC) SODIUM EDT BICARBONATE :523332 Amlodipine AMLODI 11/05/ complet AMLODIP INE MEDGEN (St 5 MG Oral PINE:1 2019 ed [facility] Tablet 87010 12:00: Medical, AMLODIPINE: 00 AM PC) [id number] EDT alogliptin ALOGLI 11/05/ complet ALOGLIP TIN MEDGEN (St 6.25 MG PTIN:1 2019 ed [facility] Oral Tablet 197640 12:00: Medi vasile, ALOGLIPTIN: 00 AM PC) [id number] EDT alogliptin ALOGLI 11/05/ complet ALOGLIP TIN MEDGEN (St 6.25 MG PTIN:2019 ed [facility] Oral Tablet 485329 12:00: Medi vasile, ALOGLIPTIN: 00 AM PC) [id number] EDT Amlodipine AMLODI 11/05/ complet AMLODIP INE MEDGEN (St 5 MG Oral PINE:2019 ed [facility] Tablet 65854 12:00: Medical, AMLODIPINE: 00 AM PC) [id number] EDT Aspirin 81 ASPIRI 11/05/ complet ASPIRIN MEDGEN (St MG Delayed N:3084 2019 ed [facility] Release 16 12:00: Medical, Oral Tablet 00 AM PC) ASPIRIN:308 EDT 416 atorvastati ATORVA 11/05/ complet ATORVA STATIN MEDGEN (St n 80 MG STATIN 2019 ed [facility] Oral Tablet :17138 12:00: Medi vasile, ATORVASTATI 5 00 AM PC) N:[id number] EDT Ergocalcife ERGOCA 15/ CAPSULE 12 complet ERG OCALCIFER MEDGEN (St rol 22109 LCIFER 2019 ed OL [facility] UNT Oral OL:136 12:00: Medical , Capsule 7410 00 AM PC) ERGOCALCIFE EDT ROL:[id number] gabapentin GABAPE 11/05/ CAPSULE 30 complet PAULETTE PENTIN MEDGEN (St 100 MG Oral NTIN:3 2019 ed [facility] Capsule 86657 12:00: Medical, GABAPENTIN: 00 AM PC) 710024 EDT Labetalol LABETA 15/ TABLET 30 complet LABETA LOL MEDGEN (St hydrochlori LOL:89 2019 ed [facility] de 200 MG 6762 12:00: Medical, Oral Tablet 00 AM PC) LABETALOL:8 EDT 49521 Ergocalcife ERGOCA 15/ CAPSULE 12 complet ERG OCALCIFER MEDGEN (St rol 78266 LCIFER 2020 ed OL [facility] UNT Oral OL:136 12:00: Medical , Capsule 7410 00 AM PC) ERGOCALCIFE EDT ROL:[id number] Sodium SODIUM 07/15/ TABLET 180 complet SODIUM ME DGEN (St Bicarbonate BICARB 2019 ed BICARBONATE [facility] 650 MG Oral TREVOR: 12:00: Medi vasile, Tablet [id number] 00 AM PC) SODIUM EDT BICARBONATE :354740 Aspirin 81 ASPIRI 11/05/ complet ASPIRIN MEDGEN (St MG Delayed N:3084 2019 ed [facility] Release 16 12:00: Medical, Oral Tablet 00 AM PC) ASPIRIN:308 EDT 416 Meclizine MECLIZ 11/05/ complet MECLIZIN E MEDGEN (St Hydrochlori INE:99 2019 ed [facility] de 12.5 MG 5624 12:00: Medical , Oral Tablet 00 AM PC) MECLIZINE:9 EDT 89487 Meclizine MECLIZ 11/05/ complet MECLIZIN E MEDGEN (St Hydrochlori INE:99 2019 ed [facility] de 12.5 MG 5624 12:00: Medical , Oral Tablet 00 AM PC) MECLIZINE:9 EDT 18259 Sodium SODIUM 11/05/ TABLET 180 complet SODIUM ME DGEN (St Bicarbonate BICARB 2019 ed BICARBONATE [facility] 650 MG Oral TREVOR: 12:00: Medi vasile, Tablet [id number] 00 AM PC) SODIUM EDT BICARBONATE :692981 Sodium SODIUM 15/ TABLET 180 complet SODIUM ME DGEN (St Bicarbonate BICARB 2019 ed BICARBONATE [facility] 650 MG Oral TREVOR: 12:00: Medi vasile, Tablet [id number] 00 AM PC) SODIUM EDT BICARBONATE :[id number] Meclizine MECLIZ 11/05/ complet MECLIZIN E MEDGEN (St Hydrochlori INE:99 2019 ed [facility] de 12.5 MG 5624 12:00: Medical , Oral Tablet 00 AM PC) MECLIZINE:9 EDT 35391 Labetalol LABETA 15/ TABLET 30 complet LABETA LOL MEDGEN (St hydrochlori LOL:89 2019 ed [facility] de 200 MG 6762 12:00: Medical, Oral Tablet 00 AM PC) LABETALOL:8 EDT 21631 gabapentin GABAPE 15/ CAPSULE 30 complet PAULETTE PENTIN MEDGEN (St 100 MG Oral NTIN:3 2020 ed [facility] Capsule 37599 12:00: Medical, GABAPENTIN: 00 AM PC) 293692 EDT Labetalol LABETA 07/15/ TABLET 30 complet LABETA LOL MEDGEN (St hydrochlori LOL:89 2019 ed [facility] de 200 MG 6762 12:00: Medical, Oral Tablet 00 AM PC) LABETALOL:8 EDT 36494 Meclizine MECLIZ 11/05/ complet MECLIZIN E MEDGEN (St Hydrochlori INE:99 2019 ed [facility] de 12.5 MG 5624 12:00: Medical , Oral Tablet 00 AM PC) MECLIZINE:9 EDT 71337 Aspirin 81 ASPIRI 11/05/ complet ASPIRIN MEDGEN (St MG Delayed N:3084 2019 ed [facility] Release 16 12:00: Medical, Oral Tablet 00 AM PC) ASPIRIN:308 EDT 416 atorvastati ATORVA 11/05/ complet ATORVA STATIN MEDGEN (St n 80 MG STATIN 2019 ed [facility] Oral Tablet :07846 12:00: Medi vasile, ATORVASTATI 5 00 AM PC) N:[id number] EDT Ergocalcife ERGOCA 11/05/ CAPSULE 12 complet ERG OCALCIFER MEDGEN (St rol 00620 LCIFER 2019 ed OL [facility] UNT Oral OL:136 12:00: Medical , Capsule 7410 00 AM PC) ERGOCALCIFE EDT ROL:[id number] Labetalol LABETA 11/05/ TABLET 30 complet LABETA LOL MEDGEN (St hydrochlori LOL:89 2019 ed [facility] de 200 MG 6762 12:00: Medical, Oral Tablet 00 AM PC) LABETALOL:8 EDT 15321 Meclizine MECLIZ 11/05/ complet MECLIZIN E MEDGEN (St Hydrochlori INE:99 2019 ed [facility] de 12.5 MG 5624 12:00: Medical , Oral Tablet 00 AM PC) MECLIZINE:9 EDT 78767 Amlodipine AMLODI 11/05/ complet AMLODIP INE MEDGEN (St 5 MG Oral PINE:1 2019 ed [facility] Tablet 25533 12:00: Medical, AMLODIPINE: 00 AM PC) [id number] EDT alogliptin ALOGLI 11/05/ complet ALOGLIP TIN MEDGEN (St 6.25 MG PTIN:2019 ed [facility] Oral Tablet 315136 12:00: Medi vasile, ALOGLIPTIN: 00 AM PC) [id number] EDT atorvastati ATORVA 11/05/ complet ATORVA STATIN MEDGEN (St n 80 MG STATIN 2019 ed [facility] Oral Tablet :71256 12:00: Medi vasile, ATORVASTATI 5 00 AM PC) N:[id number] EDT Ergocalcife ERGOCA 15/ CAPSULE 12 complet ERG OCALCIFER MEDGEN (St rol 04456 LCIFER 2020 ed OL [facility] UNT Oral OL:136 12:00: Medical , Capsule 7410 00 AM PC) ERGOCALCIFE EDT ROL:[id number] Amlodipine AMLODI 11/05/ complet AMLODIP INE MEDGEN (St 5 MG Oral PINE:1 2019 ed [facility] Tablet 74529 12:00: Medical, AMLODIPINE: 00 AM PC) 184385 EDT Aspirin 81 ASPIRI 11/05/ complet ASPIRIN MEDGEN (St MG Delayed N:3084 2019 ed [facility] Release 16 12:00: Medical, Oral Tablet 00 AM PC) ASPIRIN:308 EDT 416 Ergocalcife ERGOCA 11/05/ CAPSULE 12 complet ERG OCALCIFER MEDGEN (St rol 35427 LCIFER 2019 ed OL [facility] UNT Oral OL:136 12:00: Medical , Capsule 7410 00 AM PC) ERGOCALCIFE EDT ROL:[id number] Aspirin 81 ASPIRI 11/05/ complet ASPIRIN MEDGEN (St MG Delayed N:3084 2019 ed [facility] Release 16 12:00: Medical, Oral Tablet 00 AM PC) ASPIRIN:308 EDT 416 alogliptin ALOGLI 11/05/ complet ALOGLIP TIN MEDGEN (St 6.25 MG PTIN:1 2019 ed [facility] Oral Tablet 655549 12:00: Medi vasile, ALOGLIPTIN: 00 AM PC) [id number] EDT Lisinopril LISINO 10/29/ TABLET 30 complet LISIN OPRIL MEDGEN (St 5 MG Oral PRIL:3 2019 ed [facility] Tablet 95385 12:00: Medical, LISINOPRIL: 00 AM PC) 816740 EDT Lisinopril LISINO 10/29/ TABLET 30 complet LISIN OPRIL MEDGEN (St 5 MG Oral PRIL:3 2019 ed [facility] Tablet 44486 12:00: Medical, LISINOPRIL: 00 AM PC) 940026 EDT Lisinopril LISINO 10/29/ TABLET 30 complet LISIN OPRIL MEDGEN (St 5 MG Oral PRIL:3 2019 ed [facility] Tablet 86024 12:00: Medical, LISINOPRIL: 00 AM PC) 101493 EDT Ergocalcife ERGOCA 10/29/ CAPSULE 12 complet ERG OCALCIFER MEDGEN (St rol 55792 LCIFER 2019 ed OL [facility] UNT Oral OL:136 12:00: Medical , Capsule 7410 00 AM PC) ERGOCALCIFE EDT ROL:[id number] Sodium SODIUM 07/08/ TABLET 180 complet SODIUM ME DGEN (St Bicarbonate BICARB 2019 ed BICARBONATE [facility] 650 MG Oral TREVOR: 12:00: Medi vasile, Tablet 665936 00 AM PC) SODIUM EDT BICARBONATE :[id number] Lisinopril LISINO /08/ TABLET 30 complet LISIN OPRIL MEDGEN (St 5 MG Oral PRIL:3 2019 ed [facility] Tablet 22975 12:00: Medical, LISINOPRIL: 00 AM PC) 373719 EDT Lisinopril LISINO /08/ TABLET 30 complet LISIN OPRIL MEDGEN (St 5 MG Oral PRIL:3 2019 ed [facility] Tablet 82124 12:00: Medical, LISINOPRIL: 00 AM PC) 624818 EDT Lisinopril LISINO /08/ TABLET 30 complet LISIN OPRIL MEDGEN (St 5 MG Oral PRIL:3 2019 ed [facility] Tablet 04238 12:00: Medical, LISINOPRIL: 00 AM PC) 072035 EDT Lisinopril LISINO 07/08/ TABLET 30 complet LISIN OPRIL MEDGEN (St 5 MG Oral PRIL:3 2019 ed [facility] Tablet 74701 12:00: Medical, LISINOPRIL: 00 AM PC) 531533 EDT Lisinopril LISINO /08/ TABLET 30 complet LISIN OPRIL MEDGEN (St 5 MG Oral PRIL:3 2019 ed [facility] Tablet 38801 12:00: Medical, LISINOPRIL: 00 AM PC) 051327 EDT Hydralazine HYDRAL 15/ TABLET 60 complet HYDR ALAZINE MEDGEN (St Hydrochlori AZINE: 2019 ed [facility] de 50 MG 904576 12:00: Medical , Oral Tablet 00 AM PC) HYDRALAZINE EDT :750207 Hydralazine HYDRAL 06/15/ TABLET 60 complet HYDR ALAZINE MEDGEN (St Hydrochlori AZINE: 2019 ed [facility] de 50 MG 964639 12:00: Medical , Oral Tablet 00 AM PC) HYDRALAZINE EDT :143830 Hydralazine HYDRAL 06/15/ TABLET 60 complet HYDR ALAZINE MEDGEN (St Hydrochlori AZINE: 2019 ed [facility] de 50 MG 444664 12:00: Medical , Oral Tablet 00 AM PC) HYDRALAZINE EDT :643971 Hydralazine HYDRAL 06/15/ TABLET 60 complet HYDR ALAZINE MEDGEN (St Hydrochlori AZINE: 2019 ed [facility] de 50 MG 111743 12:00: Medical , Oral Tablet 00 AM PC) HYDRALAZINE EDT :546743 Hydralazine HYDRAL 06/15/ TABLET 60 complet HYDR ALAZINE MEDGEN (St Hydrochlori AZINE: 2019 ed [facility] de 50 MG 924976 12:00: Medical , Oral Tablet 00 AM PC) HYDRALAZINE EDT :405429 Hydralazine HYDRAL 06/15/ TABLET 60 complet HYDR ALAZINE MEDGEN (St Hydrochlori AZINE: 2019 ed [facility] de 50 MG 545910 12:00: Medical , Oral Tablet 00 AM PC) HYDRALAZINE EDT :456970 Hydralazine HYDRAL 06/15/ TABLET 60 complet HYDR ALAZINE MEDGEN (St Hydrochlori AZINE: 2019 ed [facility] de 50 MG 209834 12:00: Medical , Oral Tablet 00 AM PC) HYDRALAZINE EDT :961031 Hydralazine HYDRAL 06/15/ TABLET 60 complet HYDR ALAZINE MEDGEN (St Hydrochlori AZINE: 2019 ed [facility] de 50 MG 957479 12:00: Medical , Oral Tablet 00 AM PC) HYDRALAZINE EDT :358932 Hydralazine HYDRAL 06/15/ TABLET 60 complet HYDR ALAZINE MEDGEN (St Hydrochlori AZINE: 2020 ed [facility] de 50 MG 746496 12:00: Medical , Oral Tablet 00 AM PC) HYDRALAZINE EDT :701257 Hydralazine HYDRAL 06/15/ TABLET 60 complet HYDR ALAZINE MEDGEN (St Hydrochlori AZINE: 2019 ed [facility] de 50 MG 241402 12:00: Medical , Oral Tablet 00 AM PC) HYDRALAZINE EDT :453111 Hydralazine HYDRAL 10/06/ TABLET 60 complet HYDR ALAZINE MEDGEN (St Hydrochlori AZINE: 2019 ed [facility] de 50 MG 745105 12:00: Medical , Oral Tablet 00 AM PC) HYDRALAZINE EDT :908764 alogliptin ALOGLI 29/ TABLET 90 complet ALOGL IPTIN MEDGEN (St 6.25 MG PTIN:2019 ed [facility] Oral Tablet 125543 12:00: Medi vasile, ALOGLIPTIN: 00 AM PC) [id number] EDT alogliptin ALOGLI 09/19/ TABLET 90 complet ALOGL IPTIN MEDGEN (St 6.25 MG PTIN:2019 ed [facility] Oral Tablet 725468 12:00: Medi vasile, ALOGLIPTIN: 00 AM PC) [id number] EDT clopidogrel PLAVIX 09/19/ TABLET 90 complet PLAV IX MEDGEN (St 75 MG Oral :2019 ed [facility] Tablet 9 12:00: Medical, [Plavix] 00 AM PC) PLAVIX:2131 EDT 69 ONE TOUCH 180 complet ONE TOUCH MEDGEN (St ULTRA TEST 2019 ed ULTRA TEST Tony n's STRIP (MAIL 12:00: STRIP ([facility], ORDER): 00 AM ORDER) PC) EDT ONE TOUCH 09/19/ 200 complet ONE TOUCH MEDGEN (St LANCET FINE 2019 ed LANCET FINE J ohn's POINT: 12:00: POINT Medical, 00 AM PC) EDT Meclizine MECLIZ 09/19/ TABLET 30 complet MECLIZ INE MEDGEN (St Hydrochlori INE:99 2019 ed [facility] de 12.5 MG 5624 12:00: Medical , Oral Tablet 00 AM PC) MECLIZINE:9 EDT 02708 atorvastati ATORVA 09/19/ TABLET 90 complet ATOR VASTATIN MEDGEN (St n 80 MG STATIN 2019 ed [facility] Oral Tablet :57934 12:00: Medi vasile, ATORVASTATI 5 00 AM PC) N:[id number] EDT ONE TOUCH 180 complet ONE TOUCH MEDGEN (St ULTRA TEST 2019 ed ULTRA TEST Tony n's STRIP (MAIL 12:00: STRIP ([facility], ORDER): 00 AM ORDER) PC) EDT ONE TOUCH 09/19/ 200 complet ONE TOUCH MEDGEN (St LANCET FINE 2020 ed LANCET FINE J ohn's POINT: 12:00: POINT Medical, 00 AM PC) EDT alogliptin ALOGLI 09/19/ TABLET 90 complet ALOGL IPTIN MEDGEN (St 6.25 MG PTIN:1 2019 ed [facility] Oral Tablet 703999 12:00: Medi vasile, ALOGLIPTIN: 00 AM PC) [id number] EDT Aspirin 81 ASPIRI 29/ TABLET, 90 complet ASPI RIN MEDGEN (St MG Chewable N:3182019 CHEWABLE ed Roc[facility] hn's Tablet 72 12:00: Medical, ASPIRIN:318 00 AM PC) 272 EDT Aspirin 81 ASPIRI 09/19/ TABLET, 90 complet ASPI RIN MEDGEN (St MG Chewable N:3182019 CHEWABLE ed [facility] Tablet 72 12:00: Medical, ASPIRIN:318 00 AM PC) 272 EDT Amlodipine NORVAS 09/19/ TABLET 90 complet NORVA SC MEDGEN (St 5 MG Oral C:2124 2019 ed [facility] Tablet 49 12:00: Medical, [Norvasc] 00 AM PC) NORVASC:212 EDT 549 Meclizine MECLIZ 09/19/ TABLET 30 complet MECLIZ INE MEDGEN (St Hydrochlori INE:99 2019 ed [facility] de 12.5 MG 5624 12:00: Medical , Oral Tablet 00 AM PC) MECLIZINE:9 EDT 12549 atorvastati ATORVA 09/19/ TABLET 90 complet ATOR VASTATIN MEDGEN (St n 80 MG STATIN 2019 ed [facility] Oral Tablet :40379 12:00: Medi vasile, ATORVASTATI 5 00 AM PC) N:[id number] EDT Aspirin 81 ASPIRI 29/ TABLET, 90 complet ASPI RIN MEDGEN (St MG Chewable N:3182019 CHEWABLE ed [facility] Tablet 72 12:00: Medical, ASPIRIN:318 00 AM PC) 272 EDT atorvastati ATORVA 09/19/ TABLET 90 complet ATOR VASTATIN MEDGEN (St n 80 MG STATIN 2019 ed [facility] Oral Tablet :63297 12:00: Medi vasile, ATORVASTATI 5 00 AM PC) N:[id number] EDT gabapentin GABAPE 05/29/ CAPSULE 360 complet PAULETTE PENTIN MEDGEN (St 100 MG Oral NTIN:3 2019 ed [facility] Capsule 69001 12:00: Medical, GABAPENTIN: 00 AM PC) 394159 EDT Labetalol LABETA 09/19/ TABLET 540 complet LABETA LOL MEDGEN (St hydrochlori LOL:89 2019 ed [facility] de 200 MG 6762 12:00: Medical, Oral Tablet 00 AM PC) LABETALOL:8 EDT 31489 alogliptin ALOGLI 29/ TABLET 90 complet ALOGL IPTIN MEDGEN (St 6.25 MG PTIN:1 2019 ed [facility] Oral Tablet 521938 12:00: Medi vasile, ALOGLIPTIN: 00 AM PC) [id number] EDT Aspirin 81 ASPIRI 09/19/ TABLET, 90 complet ASPI RIN MEDGEN (St MG Chewable N:3182 2019 CHEWABLE ed [facility] Tablet 72 12:00: Medical, ASPIRIN:318 00 AM PC) 272 EDT atorvastati ATORVA 09/19/ TABLET 90 complet ATOR VASTATIN MEDGEN (St n 80 MG STATIN 2019 ed [facility] Oral Tablet :29899 12:00: Medi vasile, ATORVASTATI 5 00 AM PC) N:[id number] EDT alogliptin ALOGLI 09/19/ TABLET 90 complet ALOGL IPTIN MEDGEN (St 6.25 MG PTIN:1 2019 ed [facility] Oral Tablet 572832 12:00: Medi vasile, ALOGLIPTIN: 00 AM PC) [id number] EDT Labetalol LABETA 09/19/ TABLET 540 complet LABETA LOL MEDGEN (St hydrochlori LOL:89 2019 ed [facility] de 200 MG 6762 12:00: Medical, Oral Tablet 00 AM PC) LABETALOL:8 EDT 42071 gabapentin GABAPE 29/ CAPSULE 360 complet PAULETTE PENTIN MEDGEN (St 100 MG Oral NTIN:3 2019 ed [facility] Capsule 25568 12:00: Medical, GABAPENTIN: 00 AM PC) 112015 EDT Meclizine MECLIZ 09/19/ TABLET 30 complet MECLIZ INE MEDGEN (St Hydrochlori INE:99 2019 ed [facility] de 12.5 MG 5624 12:00: Medical , Oral Tablet 00 AM PC) MECLIZINE:9 EDT 55499 Amlodipine NORVAS /29/ TABLET 90 complet NORVA [place] MEDGEN (St 5 MG Oral C:2124 2019 ed [facility] Tablet 49 12:00: Medical, [Norvasc] 00 AM PC) NORVASC:212 EDT 549 ONE TOUCH 09/19/ 200 complet ONE TOUCH MEDGEN (St LANCET FINE 2019 ed LANCET FINE J ohn's POINT: 12:00: POINT Medical, 00 AM PC) EDT Amlodipine NORVAS 29/ TABLET 90 complet NORVA SC MEDGEN (St 5 MG Oral C:2124 2019 ed [facility] Tablet 49 12:00: Medical, [Norvasc] 00 AM PC) NORVASC:212 EDT 549 Meclizine MECLIZ 09/19/ TABLET 30 complet MECLIZ INE MEDGEN (St Hydrochlori INE:99 2019 ed [facility] de 12.5 MG 5624 12:00: Medical , Oral Tablet 00 AM PC) MECLIZINE:9 EDT 76011 gabapentin GABAPE 09/19/ CAPSULE 360 complet PAULETTE PENTIN MEDGEN (St 100 MG Oral NTIN:3 2019 ed [facility] Capsule 49104 12:00: Medical, GABAPENTIN: 00 AM PC) [id number] EDT Labetalol LABETA 09/19/ TABLET 540 complet LABETA LOL MEDGEN (St hydrochlori LOL:89 2019 ed [facility] de 200 MG 6762 12:00: Medical, Oral Tablet 00 AM PC) LABETALOL:8 EDT 12897 ONE TOUCH 09/19/ 200 complet ONE TOUCH MEDGEN (St LANCET FINE 2019 ed LANCET FINE J ohn's POINT: 12:00: POINT Medical, 00 AM PC) EDT gabapentin GABAPE 29/ CAPSULE 360 complet PAULETTE PENTIN MEDGEN (St 100 MG Oral NTIN:3 2019 ed [facility] Capsule 76099 12:00: Medical, GABAPENTIN: 00 AM PC) [id number] EDT atorvastati ATORVA /29/ TABLET 90 complet ATOR VASTATIN MEDGEN (St n 80 MG STATIN 2019 ed [facility] Oral Tablet :15100 12:00: Medi vasile, ATORVASTATI 5 00 AM PC) N:[id number] EDT Aspirin 81 ASPIRI 09/19/ TABLET, 90 complet ASPI RIN MEDGEN (St MG Chewable N:3182 2020 CHEWABLE ed [facility] Tablet 72 12:00: Medical, ASPIRIN:318 00 AM PC) 272 EDT alogliptin ALOGLI 09/19/ TABLET 90 complet ALOGL IPTIN MEDGEN (St 6.25 MG PTIN:1 2019 ed [facility] Oral Tablet 241098 12:00: Medi vasile, ALOGLIPTIN: 00 AM PC) [id number] EDT ONE TOUCH 09/19/ 200 complet ONE TOUCH MEDGEN (St LANCET FINE 2019 ed LANCET FINE J ohn's POINT: 12:00: POINT Medical, 00 AM PC) EDT ONE TOUCH 09/19/ 180 complet ONE TOUCH MEDGEN (St ULTRA TEST 2019 ed ULTRA TEST Tony n's STRIP (MAIL 12:00: STRIP ([facility] Medical, ORDER): 00 AM ORDER) PC) EDT Labetalol LABETA 09/19/ TABLET 540 complet LABETA LOL MEDGEN (St hydrochlori LOL:89 2019 ed Dony's de 200 MG 6762 12:00: Medical, Oral Tablet 00 AM PC) LABETALOL:8 EDT 23784 Meclizine MECLIZ 09/19/ TABLET 30 complet MECLIZ INE MEDGEN (St Hydrochlori INE:99 2019 ed Dony's de 12.5 MG 5624 12:00: Medical , Oral Tablet 00 AM PC) MECLIZINE:9 EDT 99415 Amlodipine NORVAS 09/19/ TABLET 90 complet NORVA SC MEDGEN (St 5 MG Oral C:2124 2019 ed Dony's Tablet 49 12:00: Medical, [Norvasc] 00 AM PC) NORVASC:212 EDT 549 gabapentin GABAPE 09/19/ CAPSULE 360 complet PAULETTE PENTIN MEDGEN (St 100 MG Oral NTIN:3 2019 ed Dony's Capsule [id number] 12:00: Medical, GABAPENTIN: 00 AM PC) [id number] EDT Meclizine MECLIZ 29/ TABLET 30 complet MECLIZ INE MEDGEN (St Hydrochlori INE:99 2019 ed Dony's de 12.5 MG 5624 12:00: Medical , Oral Tablet 00 AM PC) MECLIZINE:9 EDT 60639 clopidogrel PLAVIX 09/19/ TABLET 90 complet PLAV IX MEDGEN (St 75 MG Oral :41218 2019 ed Dony's Tablet 9 12:00: Medical, [Plavix] 00 AM PC) PLAVIX:2131 EDT 69 Labetalol LABETA 09/19/ TABLET 540 complet LABETA LOL MEDGEN (St hydrochlori LOL:89 2019 ed Dony's de 200 MG 6762 12:00: Medical, Oral Tablet 00 AM PC) LABETALOL:8 EDT 69732 ONE TOUCH 200 complet ONE TOUCH MEDGEN (St LANCET FINE 2019 ed LANCET FINE J ohn's POINT: 12:00: POINT Medical, 00 AM PC) EDT Amlodipine NORVAS 09/19/ TABLET 90 complet NORVA SC MEDGEN (St 5 MG Oral C:2124 2019 ed Dony's Tablet 49 12:00: Medical, [Norvasc] 00 AM PC) NORVASC:212 EDT 549 clopidogrel PLAVIX 09/19/ TABLET 90 complet PLAV IX MEDGEN (St 75 MG Oral :2019 ed Dony's Tablet 9 12:00: Medical, [Plavix] 00 AM PC) PLAVIX:2130 EDT 69 clopidogrel PLAVIX 09/19/ TABLET 90 complet PLAV IX MEDGEN (St 75 MG Oral :2019 ed Dony's Tablet 9 12:00: Medical, [Plavix] 00 AM PC) PLAVIX:2130 EDT 69 ONE TOUCH 180 complet ONE TOUCH MEDGEN (St ULTRA TEST 2019 ed ULTRA TEST Tony n's STRIP (MAIL 12:00: STRIP (MAIL Medical, ORDER): 00 AM ORDER) PC) EDT ONE TOUCH 180 complet ONE TOUCH MEDGEN (St ULTRA TEST 2019 ed ULTRA TEST Tony n's STRIP (MAIL 12:00: STRIP (MAIL Medical, ORDER): 00 AM ORDER) PC) EDT ONE TOUCH complet ONE TOUCH MEDGEN (St LANCET FINE 2019 ed LANCET FINE J ohn's POINT: 12:00: POINT Medical, 00 AM PC) EDT Amlodipine NORVAS 09/19/ TABLET 90 complet NORVA SC MEDGEN (St 5 MG Oral C:2124 2019 ed Dony's Tablet 49 12:00: Medical, [Norvasc] 00 AM PC) NORVASC:212 EDT 549 Meclizine MECLIZ 09/19/ TABLET 30 complet MECLIZ INE MEDGEN (St Hydrochlori INE:99 2019 ed Dony's de 12.5 MG 5624 12:00: Medical , Oral Tablet 00 AM PC) MECLIZINE:9 EDT 04966 Labetalol LABETA 09/19/ TABLET 540 complet LABETA LOL MEDGEN (St hydrochlori LOL:89 2019 ed Dony's de 200 MG 6762 12:00: Medical, Oral Tablet 00 AM PC) LABETALOL:8 EDT 78465 alogliptin ALOGLI 09/19/ TABLET 90 complet ALOGL IPTIN MEDGEN (St 6.25 MG PTIN:1 2019 ed Dony's Oral Tablet [id number] 12:00: Medi vasile, ALOGLIPTIN: 00 AM PC) [id number] EDT Aspirin 81 ASPIRI 09/19/ TABLET, 90 complet ASPI RIN MEDGEN (St MG Chewable N:3181 2019 CHEWABLE ed [facility] Tablet 72 12:00: Medical, ASPIRIN:318 00 AM PC) 272 EDT clopidogrel PLAVIX 09/19/ TABLET 90 complet PLAV IX MEDGEN (St 75 MG Oral :2019 ed [facility] Tablet 9 12:00: Medical, [Plavix] 00 AM PC) PLAVIX:2130 EDT 69 clopidogrel PLAVIX 09/19/ TABLET 90 complet PLAV IX MEDGEN (St 75 MG Oral :2019 ed [facility] Tablet 9 12:00: Medical, [Plavix] 00 AM PC) PLAVIX:2130 EDT 69 ONE TOUCH 180 complet ONE TOUCH MEDGEN (St ULTRA TEST 2019 ed ULTRA TEST [facility] STRIP (MAIL 12:00: STRIP (MAIL Medical, ORDER): 00 AM ORDER) PC) EDT clopidogrel PLAVIX 09/19/ TABLET 90 complet PLAV IX MEDGEN (St 75 MG Oral :2019 ed [facility] Tablet 9 12:00: Medical, [Plavix] 00 AM PC) PLAVIX:2130 EDT 69 ONE TOUCH 09/19/ 200 complet ONE TOUCH MEDGEN (St LANCET FINE 2019 ed LANCET FINE [facility] POINT: 12:00: POINT Medical, 00 AM PC) EDT Amlodipine NORVAS 09/19/ TABLET 90 complet NORVA SC MEDGEN (St 5 MG Oral C:2124 2019 ed [facility] Tablet 49 12:00: Medical, [Norvasc] 00 AM PC) NORVASC:212 EDT 549 ONE TOUCH 180 complet ONE TOUCH MEDGEN (St ULTRA TEST 2019 ed ULTRA TEST [facility] STRIP (MAIL 12:00: STRIP (MAIL Medical, ORDER): 00 AM ORDER) PC) EDT Amlodipine NORVAS 09/19/ TABLET 90 complet NORVA SC MEDGEN (St 5 MG Oral C:2124 2019 ed [facility] Tablet 49 12:00: Medical, [Norvasc] 00 AM PC) NORVASC:212 EDT 549 Meclizine MECLIZ 09/19/ TABLET 30 complet MECLIZ INE MEDGEN (St Hydrochlori INE:99 2019 ed [facility] de 12.5 MG 5624 12:00: Medical , Oral Tablet 00 AM PC) MECLIZINE:9 EDT 14823 Labetalol LABETA 09/19/ TABLET 540 complet LABETA LOL MEDGEN (St hydrochlori LOL:89 2019 ed [facility] de 200 MG 6762 12:00: Medical, Oral Tablet 00 AM PC) LABETALOL:8 EDT 80118 gabapentin GABAPE 09/19/ CAPSULE 360 complet PAULETTE PENTIN MEDGEN (St 100 MG Oral NTIN:3 2019 ed [facility] Capsule 00784 12:00: Medical, GABAPENTIN: 00 AM PC) [id number] EDT atorvastati ATORVA 09/19/ TABLET 90 complet ATOR VASTATIN MEDGEN (St n 80 MG STATIN 2019 ed [facility] Oral Tablet :81549 12:00: Medi vasile, ATORVASTATI 5 00 AM PC) N:[id number] EDT ONE TOUCH complet ONE TOUCH MEDGEN (St ULTRA TEST 2019 ed ULTRA TEST [facility] STRIP (MAIL 12:00: STRIP (MAIL Medical, ORDER): 00 AM ORDER) PC) EDT clopidogrel PLAVIX 09/19/ TABLET 90 complet PLAV IX MEDGEN (St 75 MG Oral :2019 ed [facility] Tablet 9 12:00: Medical, [Plavix] 00 AM PC) PLAVIX:2130 EDT 69 ONE TOUCH 200 complet ONE TOUCH MEDGEN (St LANCET FINE 2019 ed LANCET FINE J [facility] POINT: 12:00: POINT Medical, 00 AM PC) EDT Meclizine MECLIZ 09/19/ TABLET 30 complet MECLIZ INE MEDGEN (St Hydrochlori INE:99 2019 ed [facility] de 12.5 MG 5624 12:00: Medical , Oral Tablet 00 AM PC) MECLIZINE:9 EDT 44002 gabapentin GABAPE 05/29/ CAPSULE 360 complet PAULETTE PENTIN MEDGEN (St 100 MG Oral NTIN:3 2019 ed [facility] Capsule 43422 12:00: Medical, GABAPENTIN: 00 AM PC) [id number] EDT Aspirin 81 ASPIRI 05/29/ TABLET, 90 complet ASPI RIN MEDGEN (St MG Chewable N:3182 2019 CHEWABLE ed [facility] Tablet 72 12:00: Medical, ASPIRIN:318 00 AM PC) 272 EDT Labetalol LABETA 05/29/ TABLET 540 complet LABETA LOL MEDGEN (St hydrochlori LOL:89 2019 ed [facility] de 200 MG 6762 12:00: Medical, Oral Tablet 00 AM PC) LABETALOL:8 EDT 60218 atorvastati ATORVA 05/29/ TABLET 90 complet ATOR VASTATIN MEDGEN (St n 80 MG STATIN 2020 ed [facility] Oral Tablet :34194 12:00: Medi vasile, ATORVASTATI 5 00 AM PC) N:[id number] EDT Aspirin 81 ASPIRI 05/29/ TABLET, 90 complet ASPI RIN MEDGEN (St MG Chewable N:[id number] CHEWABLE ed [facility] Tablet 72 12:00: Medical, ASPIRIN:318 00 AM PC) 272 EDT gabapentin GABAPE 05/29/ CAPSULE 360 complet PAULETTE PENTIN MEDGEN (St 100 MG Oral NTIN:3 2019 ed [facility] Capsule 48144 12:00: Medical, GABAPENTIN: 00 AM PC) [id number] EDT atorvastati ATORVA 05/29/ TABLET 90 complet ATOR VASTATIN MEDGEN (St n 80 MG STATIN 2020 ed [facility] Oral Tablet :74513 12:00: Medi vasile, ATORVASTATI 5 00 AM PC) N:[id number] EDT alogliptin ALOGLI 05/29/ TABLET 90 complet ALOGL IPTIN MEDGEN (St 6.25 MG PTIN:1 2019 ed [facility] Oral Tablet [id number] 12:00: Medi vasile, ALOGLIPTIN: 00 AM PC) [id number] EDT alogliptin ALOGLI 05/29/ TABLET 90 complet ALOGL IPTIN MEDGEN (St 6.25 MG PTIN:1 2019 ed [facility] Oral Tablet 170329 12:00: Medi vasile, ALOGLIPTIN: 00 AM PC) [id number] EDT ONE TOUCH 180 complet ONE TOUCH MEDGEN (St ULTRA TEST 2019 ed ULTRA TEST [facility] STRIP (MAIL 12:00: STRIP (MAIL Medical, ORDER): 00 AM ORDER) PC) EDT clopidogrel PLAVIX 09/19/ TABLET 90 complet PLAV IX MEDGEN (St 75 MG Oral :2019 ed [facility] Tablet 9 12:00: Medical, [Plavix] 00 AM PC) PLAVIX:2130 EDT 69 clopidogrel PLAVIX 09/19/ TABLET 90 complet PLAV IX MEDGEN (St 75 MG Oral :2019 ed [facility] Tablet 9 12:00: Medical, [Plavix] 00 AM PC) PLAVIX:2130 EDT 69 Meclizine MECLIZ 09/19/ TABLET 30 complet MECLIZ INE MEDGEN (St Hydrochlori INE:99 2019 ed [facility] de 12.5 MG 5624 12:00: Medical , Oral Tablet 00 AM PC) MECLIZINE:9 EDT 80967 ONE TOUCH 180 complet ONE TOUCH MEDGEN (St ULTRA TEST 2019 ed ULTRA TEST [facility] STRIP (MAIL 12:00: STRIP (MAIL Medical, ORDER): 00 AM ORDER) PC) EDT Amlodipine NORVAS 09/19/ TABLET 90 complet NORVA SC MEDGEN (St 5 MG Oral C:2124 2019 ed [facility] Tablet 49 12:00: Medical, [Norvasc] 00 AM PC) NORVASC:212 EDT 549 alogliptin ALOGLI 09/19/ TABLET 90 complet ALOGL IPTIN MEDGEN (St 6.25 MG PTIN:1 2019 ed [facility] Oral Tablet [id number] 12:00: Medi vasile, ALOGLIPTIN: 00 AM PC) [id number] EDT ONE TOUCH 200 complet ONE TOUCH MEDGEN (St LANCET FINE 2019 ed LANCET FINE [facility] POINT: 12:00: POINT Medical, 00 AM PC) EDT gabapentin GABAPE 09/19/ CAPSULE 360 complet PAULETTE PENTIN MEDGEN (St 100 MG Oral NTIN:3 2019 ed [facility] Capsule 21609 12:00: Medical, GABAPENTIN: 00 AM PC) [id number] EDT ONE TOUCH 200 complet ONE TOUCH MEDGEN (St LANCET FINE 2019 ed LANCET FINE [facility] POINT: 12:00: POINT Medical, 00 AM PC) EDT Labetalol LABETA 29/ TABLET 540 complet LABETA LOL MEDGEN (St hydrochlori LOL:89 2019 ed [facility] de 200 MG 6762 12:00: Medical, Oral Tablet 00 AM PC) LABETALOL:8 EDT 72045 Aspirin 81 ASPIRI /29/ TABLET, 90 complet ASPI RIN MEDGEN (St MG Chewable N:3181 2019 CHEWABLE ed [facility] Tablet 72 12:00: Medical, ASPIRIN:318 00 AM PC) 272 EDT Aspirin 81 ASPIRI 29/ TABLET, 90 complet ASPI RIN MEDGEN (St MG Chewable N:3181 2019 CHEWABLE ed [facility] Tablet 72 12:00: Medical, ASPIRIN:318 00 AM PC) 272 EDT Labetalol LABETA 29/ TABLET 540 complet LABETA LOL MEDGEN (St hydrochlori LOL:89 2019 ed [facility] de 200 MG 6762 12:00: Medical, Oral Tablet 00 AM PC) LABETALOL:8 EDT 62560 clopidogrel PLAVIX 09/19/ TABLET 90 complet PLAV IX MEDGEN (St 75 MG Oral :2019 ed [facility] Tablet 9 12:00: Medical, [Plavix] 00 AM PC) PLAVIX:2131 EDT 69 atorvastati ATORVA 09/19/ TABLET 90 complet ATOR VASTATIN MEDGEN (St n 80 MG STATIN 2020 ed [facility] Oral Tablet :00765 12:00: Medi vasile, ATORVASTATI 5 00 AM PC) N:[id number] EDT atorvastati ATORVA 09/19/ TABLET 90 complet ATOR VASTATIN MEDGEN (St n 80 MG STATIN 2019 ed [facility] Oral Tablet :51293 12:00: Medi vasile, ATORVASTATI 5 00 AM PC) N:[id number] EDT ONE TOUCH 09/19/ 180 complet ONE TOUCH MEDGEN (St ULTRA TEST 2019 ed ULTRA TEST [facility] STRIP (MAIL 12:00: STRIP (MAIL Medical, ORDER): 00 AM ORDER) PC) EDT alogliptin ALOGLI 09/19/ TABLET 90 complet ALOGL IPTIN MEDGEN (St 6.25 MG PTIN:1 2019 ed [facility] Oral Tablet 807260 12:00: Medi vasile, ALOGLIPTIN: 00 AM PC) [id number] EDT Labetalol LABETA 29/ TABLET 540 complet LABETA LOL MEDGEN (St hydrochlori LOL:89 2019 ed [facility] de 200 MG 6762 12:00: Medical, Oral Tablet 00 AM PC) LABETALOL:8 EDT 91883 gabapentin GABAPE 29/ CAPSULE 360 complet PAULETTE PENTIN MEDGEN (St 100 MG Oral NTIN:3 2019 ed [facility] Capsule 10938 12:00: Medical, GABAPENTIN: 00 AM PC) [id number] EDT alogliptin ALOGLI 29/ TABLET 90 complet ALOGL IPTIN MEDGEN (St 6.25 MG PTIN:1 2019 ed [facility] Oral Tablet 644473 12:00: Medi vasile, ALOGLIPTIN: 00 AM PC) [id number] EDT atorvastati ATORVA 29/ TABLET 90 complet ATOR VASTATIN MEDGEN (St n 80 MG STATIN 2020 ed [facility] Oral Tablet :69629 12:00: Medi vasile, ATORVASTATI 5 00 AM PC) N:[id number] EDT gabapentin GABAPE 09/19/ CAPSULE 360 complet PAULETTE PENTIN MEDGEN (St 100 MG Oral NTIN:3 2019 ed [facility] Capsule 17872 12:00: Medical, GABAPENTIN: 00 AM PC) 712136 EDT atorvastati ATORVA 29/ TABLET 90 complet ATOR VASTATIN MEDGEN (St n 80 MG STATIN 2020 ed [facility] Oral Tablet :71161 12:00: Medi vasile, ATORVASTATI 5 00 AM PC) N:[id number] EDT alogliptin ALOGLI 29/ TABLET 90 complet ALOGL IPTIN MEDGEN (St 6.25 MG PTIN:1 2019 ed [facility] Oral Tablet 282645 12:00: Medi vasile, ALOGLIPTIN: 00 AM PC) [id number] EDT Meclizine MECLIZ 09/19/ TABLET 30 complet MECLIZ INE MEDGEN (St Hydrochlori INE:99 2019 ed [facility] de 12.5 MG 5624 12:00: Medical , Oral Tablet 00 AM PC) MECLIZINE:9 EDT 39620 Aspirin 81 ASPIRI 09/19/ TABLET, 90 complet ASPI RIN MEDGEN (St MG Chewable N:3182 2020 CHEWABLE ed [facility] Tablet 72 12:00: Medical, ASPIRIN:318 00 AM PC) 272 EDT Aspirin 81 ASPIRI 09/19/ TABLET, 90 complet ASPI RIN MEDGEN (St MG Chewable N:[id number] CHEWABLE ed [facility] Tablet 72 12:00: Medical, ASPIRIN:318 00 AM PC) 272 EDT ONE TOUCH 180 complet ONE TOUCH MEDGEN (St ULTRA TEST 2019 ed ULTRA TEST [facility] STRIP (MAIL 12:00: STRIP (MAIL Medical, ORDER): 00 AM ORDER) PC) EDT clopidogrel PLAVIX 09/19/ TABLET 90 complet PLAV IX MEDGEN (St 75 MG Oral :2019 ed [facility] Tablet 9 12:00: Medical, [Plavix] 00 AM PC) PLAVIX:2130 EDT 69 alogliptin ALOGLI 09/19/ TABLET 90 complet ALOGL IPTIN MEDGEN (St 6.25 MG PTIN:1 2019 ed [facility] Oral Tablet [id number] 12:00: Medi vasile, ALOGLIPTIN: 00 AM PC) [id number] EDT ONE TOUCH 200 complet ONE TOUCH MEDGEN (St LANCET FINE 2019 ed LANCET FINE J [facility] POINT: 12:00: POINT Medical, 00 AM PC) EDT clopidogrel PLAVIX 09/19/ TABLET 90 complet PLAV IX MEDGEN (St 75 MG Oral :2019 ed [facility] Tablet 9 12:00: Medical, [Plavix] 00 AM PC) PLAVIX:2130 EDT 69 Aspirin 81 ASPIRI 09/19/ TABLET, 90 complet ASPI RIN MEDGEN (St MG Chewable N:3182 2019 CHEWABLE ed [facility] Tablet 72 12:00: Medical, ASPIRIN:318 00 AM PC) 272 EDT atorvastati ATORVA 09/19/ TABLET 90 complet ATOR VASTATIN MEDGEN (St n 80 MG STATIN 2019 ed [facility] Oral Tablet :68111 12:00: Medi vasile, ATORVASTATI 5 00 AM PC) N:[id number] EDT clopidogrel PLAVIX 09/19/ TABLET 90 complet PLAV IX MEDGEN (St 75 MG Oral :2019 ed [facility] Tablet 9 12:00: Medical, [Plavix] 00 AM PC) PLAVIX:2130 EDT 69 Meclizine MECLIZ 05/29/ TABLET 30 complet MECLIZ INE MEDGEN (St Hydrochlori INE:99 2019 ed [facility] de 12.5 MG 5624 12:00: Medical , Oral Tablet 00 AM PC) MECLIZINE:9 EDT 28830 Meclizine MECLIZ 29/ TABLET 30 complet MECLIZ INE MEDGEN (St Hydrochlori INE:99 2019 ed [facility] de 12.5 MG 5624 12:00: Medical , Oral Tablet 00 AM PC) MECLIZINE:9 EDT 04144 Aspirin 81 ASPIRI 09/19/ TABLET, 90 complet ASPI RIN MEDGEN (St MG Chewable N:[id number] CHEWABLE ed [facility] Tablet 72 12:00: Medical, ASPIRIN:318 00 AM PC) 272 EDT Amlodipine NORVAS 09/19/ TABLET 90 complet NORVA SC MEDGEN (St 5 MG Oral C:2124 2019 ed [facility] Tablet 49 12:00: Medical, [Norvasc] 00 AM PC) NORVASC:212 EDT 549 ONE TOUCH 09/19/ 180 complet ONE TOUCH MEDGEN (St ULTRA TEST 2019 ed ULTRA TEST [facility] STRIP (MAIL 12:00: STRIP (MAIL Medical, ORDER): 00 AM ORDER) PC) EDT atorvastati ATORVA 09/19/ TABLET 90 complet ATOR VASTATIN MEDGEN (St n 80 MG STATIN 2019 ed [facility] Oral Tablet :03205 12:00: Medi vasile, ATORVASTATI 5 00 AM PC) N:[id number] EDT ONE TOUCH 09/19/ 200 complet ONE TOUCH MEDGEN (St LANCET FINE 2019 ed LANCET FINE J [facility] POINT: 12:00: POINT Medical, 00 AM PC) EDT Amlodipine NORVAS 29/ TABLET 90 complet NORVA SC MEDGEN (St 5 MG Oral C:2124 2019 ed [facility] Tablet 49 12:00: Medical, [Norvasc] 00 AM PC) NORVASC:212 EDT 549 Meclizine MECLIZ 29/ TABLET 30 complet MECLIZ INE MEDGEN (St Hydrochlori INE:99 2019 ed [facility] de 12.5 MG 5624 12:00: Medical , Oral Tablet 00 AM PC) MECLIZINE:9 EDT 38731 Meclizine MECLIZ 29/ TABLET 30 complet MECLIZ INE MEDGEN (St Hydrochlori INE:99 2019 ed [facility] de 12.5 MG 5624 12:00: Medical , Oral Tablet 00 AM PC) MECLIZINE:9 EDT 24675 ONE TOUCH complet ONE TOUCH MEDGEN (St LANCET FINE 2019 ed LANCET FINE J [facility] POINT: 12:00: POINT Medical, 00 AM PC) EDT ONE TOUCH complet ONE TOUCH MEDGEN (St ULTRA TEST 2019 ed ULTRA TEST [facility] STRIP (MAIL 12:00: STRIP (MAIL Medical, ORDER): 00 AM ORDER) PC) EDT ONE TOUCH 180 complet ONE TOUCH MEDGEN (St ULTRA TEST 2019 ed ULTRA TEST [facility] STRIP (MAIL 12:00: STRIP (MAIL Medical, ORDER): 00 AM ORDER) PC) EDT ONE TOUCH complet ONE TOUCH MEDGEN (St LANCET FINE 2019 ed LANCET FINE J [facility] POINT: 12:00: POINT Medical, 00 AM PC) EDT clopidogrel PLAVIX 09/19/ TABLET 90 complet PLAV IX MEDGEN (St 75 MG Oral :33548 2019 ed [facility] Tablet 9 12:00: Medical, [Plavix] 00 AM PC) PLAVIX:2130 EDT 69 alogliptin ALOGLI 09/19/ TABLET 90 complet ALOGL IPTIN MEDGEN (St 6.25 MG PTIN:1 2019 ed [facility] Oral Tablet [id number] 12:00: Medi vasile, ALOGLIPTIN: 00 AM PC) [id number] EDT Aspirin 81 ASPIRI 09/19/ TABLET, 90 complet ASPI RIN MEDGEN (St MG Chewable N:3182 2019 CHEWABLE ed [facility] Tablet 72 12:00: Medical, ASPIRIN:318 00 AM PC) 272 EDT atorvastati ATORVA 09/19/ TABLET 90 complet ATOR VASTATIN MEDGEN (St n 80 MG STATIN 2019 ed [facility] Oral Tablet :56640 12:00: Medi vasile, ATORVASTATI 5 00 AM PC) N:[id number] EDT GLUCOSE complet GLUCOSE MEDG EN (St METER TEST 2017 ed METER TEST [facility] IN VITRO 12:00: IN VITRO Medic al, STRIP: 00 AM STRIP PC) EST LANCETS: complet LANCETS MED GEN (St 2018 ed [facility] 12:00: Medical, 00 AM PC) EST LANCETS: complet LANCETS MED GEN (2017 ed [facility] 12:00: Medical, 00 AM PC) EST LANCETS: complet LANCETS MED GEN (2017 ed [facility] 12:00: Medical, 00 AM PC) EST GLUCOSE complet GLUCOSE MEDG EN (St METER TEST 2017 ed METER TEST [facility] IN VITRO 12:00: IN VITRO Medic al, STRIP: 00 AM STRIP PC) EST GLUCOSE complet GLUCOSE MEDG EN (St METER TEST 2017 ed METER TEST [facility] IN VITRO 12:00: IN VITRO Medic al, STRIP: 00 AM STRIP PC) EST LANCETS: complet LANCETS MED GEN (2017 ed [facility] 12:00: Medical, 00 AM PC) EST GLUCOSE complet GLUCOSE MEDG EN (St METER TEST 2017 ed METER TEST [facility] IN VITRO 12:00: IN VITRO Medic al, STRIP: 00 AM STRIP PC) EST GLUCOSE complet GLUCOSE MEDG EN (St METER TEST 2017 ed METER TEST [facility] IN VITRO 12:00: IN VITRO Medic al, STRIP: 00 AM STRIP PC) EST LANCETS: complet LANCETS MED GEN (2017 ed [facility] 12:00: Medical, 00 AM PC) EST LANCETS: complet LANCETS MED GEN (2017 ed [facility] 12:00: Medical, 00 AM PC) EST GLUCOSE complet GLUCOSE MEDG EN (St METER TEST 2017 ed METER TEST [facility] IN VITRO 12:00: IN VITRO Medic al, STRIP: 00 AM STRIP PC) EST LANCETS: complet LANCETS MED GEN (2017 ed [facility] 12:00: Medical, 00 AM PC) EST GLUCOSE complet GLUCOSE MEDG EN (St METER TEST 2017 ed METER TEST [facility] IN VITRO 12:00: IN VITRO Medic al, STRIP: 00 AM STRIP PC) EST LANCETS: complet LANCETS MED GEN (2017 ed [facility] 12:00: Medical, 00 AM PC) EST GLUCOSE complet GLUCOSE MEDG EN (St METER TEST 2018 ed METER TEST [facility] IN VITRO 12:00: IN VITRO Medic al, STRIP: 00 AM STRIP PC) EST LANCETS: complet LANCETS MED GEN (2017 ed [facility] 12:00: Medical, 00 AM PC) EST GLUCOSE complet GLUCOSE MEDG EN (St METER TEST 2017 ed METER TEST [facility] IN VITRO 12:00: IN VITRO Medic al, STRIP: 00 AM STRIP PC) EST LANCETS: complet LANCETS MED GEN (2017 ed [facility] 12:00: Medical, 00 AM PC) EST GLUCOSE complet GLUCOSE MEDG EN (St METER TEST 2017 ed METER TEST [facility] IN VITRO 12:00: IN VITRO Medic al, STRIP: 00 AM STRIP PC) EST LANCETS: complet LANCETS MED GEN (2017 ed [facility] 12:00: Medical, 00 AM PC) EST GLUCOSE complet GLUCOSE MEDG EN (St METER TEST 2017 ed METER TEST [facility] IN VITRO 12:00: IN VITRO Medic al, STRIP: 00 AM STRIP PC) EST GLUCOSE complet GLUCOSE MEDG EN (St METER TEST 2017 ed METER TEST [facility] IN VITRO 12:00: IN VITRO Medic al, STRIP: 00 AM STRIP PC) EST GLUCOSE complet GLUCOSE MEDG EN (St METER TEST 2017 ed METER TEST [facility] IN VITRO 12:00: IN VITRO Medic al, STRIP: 00 AM STRIP PC) EST LANCETS: complet LANCETS MED GEN (2017 ed [facility] 12:00: Medical, 00 AM PC) EST GLUCOSE complet GLUCOSE MEDG EN (St METER TEST 2017 ed METER TEST [facility] IN VITRO 12:00: IN VITRO Medic al, STRIP: 00 AM STRIP PC) EST LANCETS: complet LANCETS MED GEN (2017 ed [facility] 12:00: Medical, 00 AM PC) EST LANCETS: complet LANCETS MED GEN (2017 ed [facility] 12:00: Medical, 00 AM PC) EST GLUCOSE complet GLUCOSE MEDG EN (St METER TEST 2017 ed METER TEST [facility] IN VITRO 12:00: IN VITRO Medic al, STRIP: 00 AM STRIP PC) EST LANCETS: complet LANCETS MED GEN (St 2018 ed [facility] 12:00: Medical, 00 AM ) EST Insurance Providers Payer name Policy type Policy ID Covered Covered libertarian's Policy P dana / Coverage libertarian ID relationship to [place] Inf ormation type villeda [employer] MEDICAID [id number] SP [id number] [facility] [id number] [id number] [facility] [id number] [employer] MEDICAID [id number] SP [id number] HMO MEDICAID W [id number] 01 [id number] [facility] IP DRG W [id number] 01 [id number] HMO MEDICAID W [id number] 01 [id number] [facility] OP Y W [id number] Problems, Conditions, and Diagnoses Code Display Name Description Problem Type Effective Data Dates Source(s) D63.1 Anemia in chronic ANEMIA IN CHRONIC Problem 12/09/2019 MEDGEN (St kidney disease KIDNEY DISEASE 12:00:00 AM [facility], ) I50.30 Unspecified UNSPECIFIED Problem 12/09/2019 MEDGEN (St diastolic DIASTOLIC 12:00:00 AM [facility] (congestive) heart (CONGESTIVE) HEART [facility] Medical, ) failure FAILURE N30.00 Acute cystitis ACUTE CYSTITIS Problem 12/09/2019 MEDGEN (St without hematuria WITHOUT HEMATURIA 12:00:00 AM [facility], ) E11.319 Type 2 diabetes TYPE 2 DIABETES Problem 12/09/2019 MEDG EN (St mellitus with MELLITUS WITH 12:00:00 AM [facility] unspecified UNSPECIFIED [facility], ) 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 D63.1 Anemia in chronic ANEMIA IN CHRONIC Problem 12/09/2019 MEDGEN (St kidney disease KIDNEY DISEASE 12:00:00 AM [facility], ) I50.30 Unspecified UNSPECIFIED Problem 12/09/2019 MEDGEN (St diastolic DIASTOLIC 12:00:00 AM [facility] (congestive) heart (CONGESTIVE) HEART [facility], ) failure FAILURE N30.00 Acute cystitis ACUTE CYSTITIS Problem 12/09/2019 MEDGEN (St without hematuria WITHOUT HEMATURIA 12:00:00 AM [facility] EDT Medical, ) E11.319 Type 2 diabetes TYPE 2 DIABETES Problem 12/09/2019 MEDG EN (St mellitus with MELLITUS WITH 12:00:00 AM [facility] unspecified UNSPECIFIED EDT Medical, ) 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 D63.1 Anemia in chronic ANEMIA IN CHRONIC Problem 12/09/2019 MEDGEN (St kidney disease KIDNEY DISEASE 12:00:00 AM [facility] EDT Medical, ) I50.30 Unspecified UNSPECIFIED Problem 12/09/2019 MEDGEN (St diastolic DIASTOLIC 12:00:00 AM [facility] (congestive) heart (CONGESTIVE) HEART EDT Medical, ) failure FAILURE N30.00 Acute cystitis ACUTE CYSTITIS Problem 12/09/2019 MEDGEN (St without hematuria WITHOUT HEMATURIA 12:00:00 AM [facility] EDT Medical, ) E11.319 Type 2 diabetes TYPE 2 DIABETES Problem 12/09/2019 MEDG EN (St mellitus with MELLITUS WITH 12:00:00 AM [facility] unspecified UNSPECIFIED EDT Medical, ) 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 D63.1 Anemia in chronic ANEMIA IN CHRONIC Problem 12/09/2019 MEDGEN (St kidney disease KIDNEY DISEASE 12:00:00 AM [facility] EDT Medical, ) I50.30 Unspecified UNSPECIFIED Problem 12/09/2019 MEDGEN (St diastolic DIASTOLIC 12:00:00 AM [facility] (congestive) heart (CONGESTIVE) HEART EDT Medical, ) failure FAILURE N30.00 Acute cystitis ACUTE CYSTITIS Problem 12/09/2019 MEDGEN (St without hematuria WITHOUT HEMATURIA 12:00:00 AM [facility] EDT Medical, ) E11.319 Type 2 diabetes TYPE 2 DIABETES Problem 12/09/2019 MEDG EN (St mellitus with MELLITUS WITH 12:00:00 AM [facility] unspecified UNSPECIFIED EDT Medical, ) 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 I50.20 Unspecified UNSPECIFIED Problem 11/25/2019 MEDGEN (St systolic SYSTOLIC 12:00:00 AM [facility] (congestive) heart (CONGESTIVE) HEART EDT Medical, ) failure FAILURE I50.20 Unspecified UNSPECIFIED Problem 11/25/2019 MEDGEN (St systolic SYSTOLIC 12:00:00 AM [facility] (congestive) heart (CONGESTIVE) HEART EDT Medical, ) failure FAILURE I50.20 Unspecified UNSPECIFIED Problem 11/25/2019 MEDGEN (St systolic SYSTOLIC 12:00:00 AM [facility] (congestive) heart (CONGESTIVE) HEART EDT [facility]) failure FAILURE I50.20 Unspecified UNSPECIFIED Problem 11/25/2019 MEDGEN (St systolic SYSTOLIC 12:00:00 AM [facility] (congestive) heart (CONGESTIVE) HEART EDT [facility], ) failure FAILURE I50.20 Unspecified UNSPECIFIED Problem 11/25/2019 MEDGEN (St systolic SYSTOLIC 12:00:00 AM [facility] (congestive) heart (CONGESTIVE) HEART EDT [facility]) failure FAILURE I50.20 Unspecified UNSPECIFIED Problem 11/25/2019 MEDGEN (St systolic SYSTOLIC 12:00:00 AM [facility] (congestive) heart (CONGESTIVE) HEART EDT [facility], ) failure FAILURE I50.20 Unspecified UNSPECIFIED Problem 11/25/2019 MEDGEN (St systolic SYSTOLIC 12:00:00 AM [facility] (congestive) heart (CONGESTIVE) HEART EDT [facility], ) failure FAILURE I50.20 Unspecified UNSPECIFIED Problem 11/25/2019 MEDGEN (St systolic SYSTOLIC 12:00:00 AM [facility] (congestive) heart (CONGESTIVE) HEART EDT [facility], ) failure FAILURE I50.20 Unspecified UNSPECIFIED Problem 11/25/2019 MEDGEN (St systolic SYSTOLIC 12:00:00 AM [facility] (congestive) heart (CONGESTIVE) HEART EDT [facility], ) failure FAILURE I50.20 Unspecified UNSPECIFIED Problem 11/25/2019 MEDGEN (St systolic SYSTOLIC 12:00:00 AM [facility] (congestive) heart (CONGESTIVE) HEART EDT [facility], ) failure FAILURE M79.672 Pain in left foot PAIN IN LEFT FOOT Problem 11/06/2019 MEDGEN (St 12:00:00 AM [facility]'s T [facility]) M79.671 Pain in right foot PAIN IN RIGHT FOOT Problem 0 MEDGEN (St 12:00:00 AM [facility]) R60.0 Localized edema LOCALIZED EDEMA Problem 11/06/2019 MEDG EN (St 12:00:00 AM [facility]) E55.9 Vitamin D VITAMIN D Problem 11/06/2019 MEDGEN (St deficiency, DEFICIENCY, 12:00:00 AM [facility] unspecified UNSPECIFIED [facility], ) B35.1 Tinea unguium TINEA UNGUIUM Problem 11/06/2019 MEDGEN ( St 12:00:00 AM [facility], ) E11.40 Type 2 diabetes TYPE 2 DIABETES Problem 11/06/2019 MEDG EN (St mellitus with MELLITUS WITH 12:00:00 AM [facility] diabetic DIABETIC [facility]) neuropathy, NEUROPATHY, unspecified UNSPECIFIED M79.672 Pain in left foot PAIN IN LEFT FOOT Problem 11/06/2019 MEDGEN (St 12:00:00 AM [facility]) M79.671 Pain in right foot PAIN IN RIGHT FOOT Problem 0 MEDGEN (St 12:00:00 AM [facility], ) R60.0 Localized edema LOCALIZED EDEMA Problem 11/06/2019 MEDG EN (St 12:00:00 AM [facility]) E55.9 Vitamin D VITAMIN D Problem 11/06/2019 MEDGEN (St deficiency, DEFICIENCY, 12:00:00 AM [facility] unspecified UNSPECIFIED [facility]) B35.1 Tinea unguium TINEA UNGUIUM Problem 11/06/2019 MEDGEN ( St 12:00:00 AM [facility], ) E11.40 Type 2 diabetes TYPE 2 DIABETES Problem 11/06/2019 MEDG EN (St mellitus with MELLITUS WITH 12:00:00 AM [facility] diabetic DIABETIC [facility], ) neuropathy, NEUROPATHY, unspecified UNSPECIFIED M79.672 Pain in left foot PAIN IN LEFT FOOT Problem 11/06/2019 MEDGEN (St 12:00:00 AM [facility]) M79.671 Pain in right foot PAIN IN RIGHT FOOT Problem 0 MEDGEN (St 12:00:00 AM [facility], ) R60.0 Localized edema LOCALIZED EDEMA Problem 11/06/2019 MEDG EN (St 12:00:00 AM [facility]) E55.9 Vitamin D VITAMIN D Problem 11/06/2019 MEDGEN (St deficiency, DEFICIENCY, 12:00:00 AM [facility] unspecified UNSPECIFIED [facility]) B35.1 Tinea unguium TINEA UNGUIUM Problem 11/06/2019 MEDGEN ( St 12:00:00 AM [facility]) E11.40 Type 2 diabetes TYPE 2 DIABETES Problem 11/06/2019 MEDG EN (St mellitus with MELLITUS WITH 12:00:00 AM [facility] diabetic DIABETIC [facility]) neuropathy, NEUROPATHY, unspecified UNSPECIFIED M79.672 Pain in left foot PAIN IN LEFT FOOT Problem 11/06/2019 MEDGEN (St 12:00:00 AM [facility]) M79.671 Pain in right foot PAIN IN RIGHT FOOT Problem 0 MEDGEN (St 12:00:00 AM [facility]) R60.0 Localized edema LOCALIZED EDEMA Problem 11/06/2019 MEDG EN (St 12:00:00 AM [facility]) E55.9 Vitamin D VITAMIN D Problem 11/06/2019 MEDGEN (St deficiency, DEFICIENCY, 12:00:00 AM [facility]) B35.1 Tinea unguium TINEA UNGUIUM Problem 11/06/2019 MEDGEN ( St 12:00:00 AM [facility]) E11.40 Type 2 diabetes TYPE 2 DIABETES Problem 11/06/2019 MEDG EN (St mellitus with MELLITUS WITH 12:00:00 AM [facility] diabetic DIABETIC [facility]) neuropathy, NEUROPATHY, unspecified UNSPECIFIED M79.672 Pain in left foot PAIN IN LEFT FOOT Problem 11/06/2019 MEDGEN (St 12:00:00 AM [facility]) M79.671 Pain in right foot PAIN IN RIGHT FOOT Problem 0 MEDGEN (St 12:00:00 AM [facility]) R60.0 Localized edema LOCALIZED EDEMA Problem 11/06/2019 MEDG EN (St 12:00:00 AM [facility]) E55.9 Vitamin D VITAMIN D Problem 11/06/2019 MEDGEN (St deficiency, DEFICIENCY, 12:00:00 AM [facility]) B35.1 Tinea unguium TINEA UNGUIUM Problem 11/06/2019 MEDGEN ( St 12:00:00 AM [facility]) E11.40 Type 2 diabetes TYPE 2 DIABETES Problem 11/06/2019 MEDG EN (St mellitus with MELLITUS WITH 12:00:00 AM [facility] diabetic DIABETIC [facility]) neuropathy, NEUROPATHY, unspecified UNSPECIFIED M79.672 Pain in left foot PAIN IN LEFT FOOT Problem 11/06/2019 MEDGEN (St 12:00:00 AM [facility]) M79.671 Pain in right foot PAIN IN RIGHT FOOT Problem 0 MEDGEN (St 12:00:00 AM [facility]) R60.0 Localized edema LOCALIZED EDEMA Problem 11/06/2019 MEDG EN (St 12:00:00 AM [facility]) E55.9 Vitamin D VITAMIN D Problem 11/06/2019 MEDGEN (St deficiency, DEFICIENCY, 12:00:00 AM [facility]) B35.1 Tinea unguium TINEA UNGUIUM Problem 11/06/2019 MEDGEN ( St 12:00:00 AM [facility]) E11.40 Type 2 diabetes TYPE 2 DIABETES Problem 11/06/2019 MEDG EN (St mellitus with MELLITUS WITH 12:00:00 AM [facility] diabetic DIABETIC [facility]) neuropathy, NEUROPATHY, unspecified UNSPECIFIED M79.672 Pain in left foot PAIN IN LEFT FOOT Problem 11/06/2019 MEDGEN (St 12:00:00 AM [facility]) M79.671 Pain in right foot PAIN IN RIGHT FOOT Problem 0 MEDGEN (St 12:00:00 AM [facility]) R60.0 Localized edema LOCALIZED EDEMA Problem 11/06/2019 MEDG EN (St 12:00:00 AM [facility]) E55.9 Vitamin D VITAMIN D Problem 11/06/2019 MEDGEN (St deficiency, DEFICIENCY, 12:00:00 AM [facility] B35.1 Tinea unguium TINEA UNGUIUM Problem 11/06/2019 MEDGEN ( St 12:00:00 AM [facility]) E11.40 Type 2 diabetes TYPE 2 DIABETES Problem 11/06/2019 MEDG EN (St mellitus with MELLITUS WITH 12:00:00 AM [facility] diabetic DIABETIC [facility], ) neuropathy, NEUROPATHY, unspecified UNSPECIFIED M79.672 Pain in left foot PAIN IN LEFT FOOT Problem 11/06/2019 MEDGEN (St 12:00:00 AM [facility], ) M79.671 Pain in right foot PAIN IN RIGHT FOOT Problem 0 MEDGEN (St 12:00:00 AM [facility], ) R60.0 Localized edema LOCALIZED EDEMA Problem 11/06/2019 MEDG EN (St 12:00:00 AM [facility], ) E55.9 Vitamin D VITAMIN D Problem 11/06/2019 MEDGEN (St deficiency, DEFICIENCY, 12:00:00 AM [facility] B35.1 Tinea unguium TINEA UNGUIUM Problem 11/06/2019 MEDGEN ( St 12:00:00 AM [facility], ) E11.40 Type 2 diabetes TYPE 2 DIABETES Problem 11/06/2019 MEDG EN (St mellitus with MELLITUS WITH 12:00:00 AM [facility] diabetic DIABETIC [facility], ) neuropathy, NEUROPATHY, unspecified UNSPECIFIED M79.672 Pain in left foot PAIN IN LEFT FOOT Problem 11/06/2019 MEDGEN (St 12:00:00 AM [facility], ) M79.671 Pain in right foot PAIN IN RIGHT FOOT Problem 0 MEDGEN (St 12:00:00 AM [facility], ) R60.0 Localized edema LOCALIZED EDEMA Problem 11/06/2019 MEDG EN (St 12:00:00 AM [facility], ) M79.672 Pain in left foot PAIN IN LEFT FOOT Problem 11/06/2019 MEDGEN (St 12:00:00 AM [facility]) M79.671 Pain in right foot PAIN IN RIGHT FOOT Problem 0 MEDGEN (St 12:00:00 AM [facility], ) R60.0 Localized edema LOCALIZED EDEMA Problem 11/06/2019 MEDG EN (St 12:00:00 AM [facility]) E55.9 Vitamin D VITAMIN D Problem 11/06/2019 MEDGEN (St deficiency, DEFICIENCY, 12:00:00 AM [facility] B35.1 Tinea unguium TINEA UNGUIUM Problem 11/06/2019 MEDGEN ( St 12:00:00 AM [facility]) E11.40 Type 2 diabetes TYPE 2 DIABETES Problem 11/06/2019 MEDG EN (St mellitus with MELLITUS WITH 12:00:00 AM [facility]) neuropathy, NEUROPATHY, unspecified UNSPECIFIED M79.672 Pain in left foot PAIN IN LEFT FOOT Problem 11/06/2019 MEDGEN (St 12:00:00 AM [facility]) M79.671 Pain in right foot PAIN IN RIGHT FOOT Problem 0 MEDGEN (St 12:00:00 AM [facility]) R60.0 Localized edema LOCALIZED EDEMA Problem 11/06/2019 MEDG EN (St 12:00:00 AM [facility]) E55.9 Vitamin D VITAMIN D Problem 11/06/2019 MEDGEN (St deficiency, DEFICIENCY, 12:00:00 AM [facility]) B35.1 Tinea unguium TINEA UNGUIUM Problem 11/06/2019 MEDGEN ( St 12:00:00 AM [facility]) E11.40 Type 2 diabetes TYPE 2 DIABETES Problem 11/06/2019 MEDG EN (St mellitus with MELLITUS WITH 12:00:00 AM [facility] diabetic [facility]) neuropathy, NEUROPATHY, unspecified UNSPECIFIED E55.9 Vitamin D VITAMIN D Problem 11/06/2019 MEDGEN (St deficiency, DEFICIENCY, 12:00:00 AM [facility] B35.1 Tinea unguium TINEA UNGUIUM Problem 11/06/2019 MEDGEN ( St 12:00:00 AM [facility]) E11.40 Type 2 diabetes TYPE 2 DIABETES Problem 11/06/2019 MEDG EN (St mellitus with MELLITUS WITH 12:00:00 AM [facility] diabetic DIABETIC [facility]) neuropathy, NEUROPATHY, unspecified UNSPECIFIED E55.9 Vitamin D VITAMIN D Problem 11/06/2019 MEDGEN (St deficiency, DEFICIENCY, 12:00:00 AM [facility]) N18.9 Chronic kidney CHRONIC KIDNEY Problem 10/16/2019 MEDGEN (St disease, DISEASE, 12:00:00 AM [facility]PEC[facility]IED [facility]) N18.9 Chronic kidney CHRONIC KIDNEY Problem 10/16/2019 MEDGEN (St disease, DISEASE, 12:00:00 AM [facility]PEC[facility]IED [facility]) N18.9 Chronic kidney CHRONIC KIDNEY Problem 10/16/2019 MEDGEN (St disease, DISEASE, 12:00:00 AM [facility]PEC[facility]IED [facility]) N18.9 Chronic kidney CHRONIC KIDNEY Problem 10/16/2019 MEDGEN (St disease, DISEASE, 12:00:00 AM [facility]PEC[facility]IED [facility]) N18.9 Chronic kidney CHRONIC KIDNEY Problem 10/16/2019 MEDGEN (St disease, DISEASE, 12:00:00 AM [facility]PEC[facility]IED [facility]) N18.9 Chronic kidney CHRONIC KIDNEY Problem 10/16/2019 MEDGEN (St disease, DISEASE, 12:00:00 AM [facility]PEC[facility]IED [facility]) N18.9 Chronic kidney CHRONIC KIDNEY Problem 10/16/2019 MEDGEN (St disease, DISEASE, 12:00:00 AM [facility]PEC[facility]IED [facility]) N18.9 Chronic kidney CHRONIC KIDNEY Problem 10/16/2019 MEDGEN (St disease, DISEASE, 12:00:00 AM [facility]PEC[facility]IED [facility]) N18.9 Chronic kidney CHRONIC KIDNEY Problem 10/16/2019 MEDGEN (St disease, DISEASE, 12:00:00 AM [facility]NSPEC[facility]IED [facility]) N18.9 Chronic kidney CHRONIC KIDNEY Problem 10/16/2019 MEDGEN (St disease, DISEASE, 12:00:00 AM [facility]PEC[facility]IED [facility]) N18.9 Chronic kidney CHRONIC KIDNEY Problem 10/16/2019 MEDGEN (St disease, DISEASE, 12:00:00 AM [facility]PEC[facility]IED [facility]) N18.9 Chronic kidney CHRONIC KIDNEY Problem 10/16/2019 MEDGEN (St disease, DISEASE, 12:00:00 AM [facility] UNSPEC[facility]IED [facility], ) N18.9 Chronic kidney CHRONIC KIDNEY Problem 10/16/2019 MEDGEN (St disease, DISEASE, 12:00:00 AM [facility] U[facility]PEC[facility]IED [facility], ) N18.9 Chronic kidney CHRONIC KIDNEY Problem 10/16/2019 MEDGEN (St disease, DISEASE, 12:00:00 AM [facility] UNSPECIFIED [facility], ) R05 Cough COUGH Problem 10/04/2019 MEDGEN (St 12:00:00 AM [facility], ) R05 Cough COUGH Problem 10/04/2019 MEDGEN (St 12:00:00 AM [facility], ) R05 Cough COUGH Problem 10/04/2019 MEDGEN (St 12:00:00 AM [facility], ) R05 Cough COUGH Problem 10/04/2019 MEDGEN (St 12:00:00 AM [facility], ) R05 Cough COUGH Problem 10/04/2019 MEDGEN (St 12:00:00 AM [facility], ) R05 Cough COUGH Problem 10/04/2019 MEDGEN (St 12:00:00 AM [facility], ) R05 Cough COUGH Problem 10/04/2019 MEDGEN (St 12:00:00 AM [facility], ) R05 Cough COUGH Problem 10/04/2019 MEDGEN (St 12:00:00 AM [facility], ) R05 Cough COUGH Problem 10/04/2019 MEDGEN (St 12:00:00 AM [facility], ) R05 Cough COUGH Problem 10/04/2019 MEDGEN (St 12:00:00 AM [facility], ) R05 Cough COUGH Problem 10/04/2019 MEDGEN (St 12:00:00 AM [facility], ) R05 Cough COUGH Problem 10/04/2019 MEDGEN (St 12:00:00 AM [facility], ) R05 Cough COUGH Problem 10/04/2019 MEDGEN (St 12:00:00 AM [facility], ) R05 Cough COUGH Problem 10/04/2019 MEDGEN (St 12:00:00 AM [facility], ) E87.0 Hyperosmolality and HYPEROSMOLALITY AND Problem MEDGEN (St hypernatremia HYPERNATREMIA 12:00:00 AM [facility]' [facility]T Medical, ) N17.9 Acute kidney ACUTE KIDNEY Problem 09/20/2019 MEDGEN (St failure, FAILURE, 12:00:00 AM [facility] UNSPECIFIED [facility], ) E87.0 Hyperosmolality and HYPEROSMOLALITY AND Problem MEDGEN (St hypernatremia HYPERNATREMIA 12:00:00 AM [facility], ) N17.9 Acute kidney ACUTE KIDNEY Problem 09/20/2019 MEDGEN (St failure, FAILURE, 12:00:00 AM [facility] unspecified UNSPECIFIED [facility], ) E87.0 Hyperosmolality and HYPEROSMOLALITY AND Problem MEDGEN (St hypernatremia HYPERNATREMIA 12:00:00 AM [facility], ) N17.9 Acute kidney ACUTE KIDNEY Problem 09/20/2019 MEDGEN (St failure, FAILURE, 12:00:00 AM [facility] unspecified UNSPECIFIED [facility], ) E87.0 Hyperosmolality and HYPEROSMOLALITY AND Problem MEDGEN (St hypernatremia HYPERNATREMIA 12:00:00 AM [facility], ) N17.9 Acute kidney ACUTE KIDNEY Problem 09/20/2019 MEDGEN (St failure, FAILURE, 12:00:00 AM [facility] unspecified UNSPECIFIED [facility], ) E87.0 Hyperosmolality and HYPEROSMOLALITY AND Problem MEDGEN (St hypernatremia HYPERNATREMIA 12:00:00 AM [facility], ) N17.9 Acute kidney ACUTE KIDNEY Problem 09/20/2019 MEDGEN (St failure, FAILURE, 12:00:00 AM [facility] unspecified UNSPECIFIED [facility], ) E87.0 Hyperosmolality and HYPEROSMOLALITY AND Problem MEDGEN (St hypernatremia HYPERNATREMIA 12:00:00 AM [facility], ) N17.9 Acute kidney ACUTE KIDNEY Problem 09/20/2019 MEDGEN (St failure, FAILURE, 12:00:00 AM [facility] unspecified UNSPECIFIED [facility], ) E87.0 Hyperosmolality and HYPEROSMOLALITY AND Problem MEDGEN (St hypernatremia HYPERNATREMIA 12:00:00 AM [facility]' EDT [facility], ) N17.9 Acute kidney ACUTE KIDNEY Problem 09/20/2019 MEDGEN (St failure, FAILURE, 12:00:00 AM [facility] UNSPECIFIED [facility], ) E87.0 Hyperosmolality and HYPEROSMOLALITY AND Problem MEDGEN (St hypernatremia HYPERNATREMIA 12:00:00 AM [facility]' EDT [facility], ) N17.9 Acute kidney ACUTE KIDNEY Problem 09/20/2019 MEDGEN (St failure, FAILURE, 12:00:00 AM [facility] UNSPECIFIED [facility], ) E87.0 Hyperosmolality and HYPEROSMOLALITY AND Problem MEDGEN (St hypernatremia HYPERNATREMIA 12:00:00 AM [facility], ) N17.9 Acute kidney ACUTE KIDNEY Problem 09/20/2019 MEDGEN (St failure, FAILURE, 12:00:00 AM [facility] unspecified UNSPECIFIED [facility]T Medical, ) E87.0 Hyperosmolality and HYPEROSMOLALITY AND Problem MEDGEN (St hypernatremia HYPERNATREMIA 12:00:00 AM [facility], ) N17.9 Acute kidney ACUTE KIDNEY Problem 09/20/2019 MEDGEN (St failure, FAILURE, 12:00:00 AM [facility] unspecified UNSPECIFIED EDT Medical, ) E87.0 Hyperosmolality and HYPEROSMOLALITY AND Problem 020 MEDGEN (St hypernatremia HYPERNATREMIA 12:00:00 AM [facility]'s EDT [facility], ) N17.9 Acute kidney ACUTE KIDNEY Problem 09/20/2019 MEDGEN (St failure, FAILURE, 12:00:00 AM [facility] unspecified UNSPECIFIED EDT Medical, ) E87.0 Hyperosmolality and HYPEROSMOLALITY AND Problem 020 MEDGEN (St hypernatremia HYPERNATREMIA 12:00:00 AM [facility]'s T [facility], ) N17.9 Acute kidney ACUTE KIDNEY Problem 09/20/2019 MEDGEN (St failure, FAILURE, 12:00:00 AM [facility] unspecified UNSPECIFIED EDT Medical, ) E87.0 Hyperosmolality and HYPEROSMOLALITY AND Problem 020 MEDGEN (St hypernatremia HYPERNATREMIA 12:00:00 AM [facility], ) N17.9 Acute kidney ACUTE KIDNEY Problem 09/20/2019 MEDGEN (St failure, FAILURE, 12:00:00 AM [facility]' unspecified UNSPECIFIED EDT Medical, ) E87.0 Hyperosmolality and HYPEROSMOLALITY AND Problem 020 MEDGEN (St hypernatremia HYPERNATREMIA 12:00:00 AM [facility], ) N17.9 Acute kidney ACUTE KIDNEY Problem 09/20/2019 MEDGEN (St failure, FAILURE, 12:00:00 AM [facility] unspecified UNSPECIFIED EDT Medical, ) R42 Dizziness and DIZZINESS AND Problem 08/26/2019 MEDGEN ( St giddiness GIDDINESS 12:00:00 AM [facility]'s T [facility], ) R42 Dizziness and DIZZINESS AND Problem 08/26/2019 MEDGEN ( St gidd[facility] GIDDINESS 12:00:00 AM [facility]'s T [facility], ) R42 Dizziness and DIZZINESS AND Problem 08/26/2019 MEDGEN ( St g[facility] GIDDINESS 12:00:00 AM [facility]'s T [facility], ) R42 Dizziness and DIZZINESS AND Problem 08/26/2019 MEDGEN ( St [facility] GIDDINESS 12:00:00 AM [facility]'s T [facility], ) R42 Dizziness and DIZZINESS AND Problem 08/26/2019 MEDGEN ( St [facility] GIDDINESS 12:00:00 AM [facility], ) R42 Dizziness and DIZZINESS AND Problem 08/26/2019 MEDGEN ( St [facility] GIDDINESS 12:00:00 AM [facility], ) R42 Dizziness and DIZZINESS AND Problem 08/26/2019 MEDGEN ( St [facility] GIDDINESS 12:00:00 AM [facility], ) R42 Dizziness and DIZZINESS AND Problem 08/26/2019 MEDGEN ( St [facility] GIDDINESS 12:00:00 AM [facility], ) R42 Dizziness and DIZZINESS AND Problem 08/26/2019 MEDGEN ( [facility] GIDDINESS 12:00:00 AM [facility], ) R42 Dizziness and DIZZINESS AND Problem 08/26/2019 MEDGEN ( [facility] GIDDINESS 12:00:00 AM [facility], ) R42 Dizziness and DIZZINESS AND Problem 08/26/2019 MEDGEN ( [facility] GIDDINESS 12:00:00 AM [facility], ) R42 Dizziness and DIZZINESS AND Problem 08/26/2019 MEDGEN ( [facility] GIDDINESS 12:00:00 AM [facility], ) R42 Dizziness and DIZZINESS AND Problem 08/26/2019 MEDGEN ( [facility] GIDDINESS 12:00:00 AM [facility], ) R42 Dizziness and DIZZINESS AND Problem 08/26/2019 MEDGEN ( St [facility] GIDDINESS 12:00:00 AM [facility], ) N18.3 Chronic kidney CHRONIC KIDNEY Problem 04/16/2019 MEDGEN (St disease, stage 3 DISEASE, STAGE 3 12:00:00 AM [facility] (moderate) (MODERATE) [facility], ) N18.3 Chronic kidney CHRONIC KIDNEY Problem 04/16/2019 MEDGEN (St disease, stage 3 DISEASE, STAGE 3 12:00:00 AM [facility] (moderate) (MODERATE) [facility] Medical, ) N18.3 Chronic kidney CHRONIC KIDNEY Problem 04/16/2019 MEDGEN (St disease, stage 3 DISEASE, STAGE 3 12:00:00 AM [facility] (moderate) (MODERATE) [facility], ) N18.3 Chronic kidney CHRONIC KIDNEY Problem 04/16/2019 MEDGEN (St disease, stage 3 DISEASE, STAGE 3 12:00:00 AM [facility] (moderate) (MODERATE) [facility]) N18.3 Chronic kidney CHRONIC KIDNEY Problem 04/16/2019 MEDGEN (St disease, stage 3 DISEASE, STAGE 3 12:00:00 AM [facility] (moderate) (MODERATE) [facility]) N18.3 Chronic kidney CHRONIC KIDNEY Problem 04/16/2019 MEDGEN (St disease, stage 3 DISEASE, STAGE 3 12:00:00 AM [facility] (moderate) (MODERATE) [facility]) N18.3 Chronic kidney CHRONIC KIDNEY Problem 04/16/2019 MEDGEN (St disease, stage 3 DISEASE, STAGE 3 12:00:00 AM [facility] (moderate) (MODERATE) [facility]) N18.3 Chronic kidney CHRONIC KIDNEY Problem 04/16/2019 MEDGEN (St disease, stage 3 DISEASE, STAGE 3 12:00:00 AM [facility] (moderate) (MODERATE) [facility]) N18.3 Chronic kidney CHRONIC KIDNEY Problem 04/16/2019 MEDGEN (St disease, stage 3 DISEASE, STAGE 3 12:00:00 AM [facility] (moderate) (MODERATE) [facility]) N18.3 Chronic kidney CHRONIC KIDNEY Problem 04/16/2019 MEDGEN (St disease, stage 3 DISEASE, STAGE 3 12:00:00 AM [facility] (moderate) (MODERATE) [facility]) N18.3 Chronic kidney CHRONIC KIDNEY Problem 04/16/2019 MEDGEN (St disease, stage 3 DISEASE, STAGE 3 12:00:00 AM [facility] (moderate) (MODERATE) [facility]) N18.3 Chronic kidney CHRONIC KIDNEY Problem 04/16/2019 MEDGEN (St disease, stage 3 DISEASE, STAGE 3 12:00:00 AM [facility] (moderate) (MODERATE) [facility]) N18.3 Chronic kidney CHRONIC KIDNEY Problem 04/16/2019 MEDGEN (St disease, stage 3 DISEASE, STAGE 3 12:00:00 AM [facility] (moderate) (MODERATE) [facility]) N18.3 Chronic kidney CHRONIC KIDNEY Problem 04/16/2019 MEDGEN (St disease, stage 3 DISEASE, STAGE 3 12:00:00 AM [facility] (moderate) (MODERATE) [facility]) E11.49 Type 2 diabetes TYPE 2 DIABETES Problem 12/17/2018 MEDG EN (St mellitus with other MELLITUS WITH OTHER 12:00:0 0 AM [facility] DIABETIC [facility], ) neurological NEUROLOGICAL complication COMPLICATION E11.49 Type 2 diabetes TYPE 2 DIABETES Problem 12/17/2018 MEDG EN (St mellitus with other MELLITUS WITH OTHER 12:00:0 0 AM [facility] DIAB[facility], ) neurological NEUROLOGICAL complication COMPLICATION E11.49 Type 2 diabetes TYPE 2 DIABETES Problem 12/17/2018 MEDG EN (St mellitus with other MELLITUS WITH OTHER 12:00:0 0 AM [facility] DIAB[facility], ) neurological NEUROLOGICAL complication COMPLICATION E11.49 Type 2 diabetes TYPE 2 DIABETES Problem 12/17/2018 MEDG EN (St mellitus with other MELLITUS WITH OTHER 12:00:0 0 AM [facility] DIAB[facility], ) neurological NEUROLOGICAL complication COMPLICATION E11.49 Type 2 diabetes TYPE 2 DIABETES Problem 12/17/2018 MEDG EN (St mellitus with other MELLITUS WITH OTHER 12:00:0 0 AM [facility] DIABETIC EDT [facility], ) neurological NEUROLOGICAL complication COMPLICATION E11.49 Type 2 diabetes TYPE 2 DIABETES Problem 12/17/2018 MEDG EN (St mellitus with other MELLITUS WITH OTHER 12:00:0 0 AM [facility], ) neurological NEUROLOGICAL complication COMPLICATION E11.49 Type 2 diabetes TYPE 2 DIABETES Problem 12/17/2018 MEDG EN (St mellitus with other MELLITUS WITH OTHER 12:00:0 0 AM [facility] DIAB[facility], ) neurological NEUROLOGICAL complication COMPLICATION E11.49 Type 2 diabetes TYPE 2 DIABETES Problem 12/17/2018 MEDG EN (St mellitus with other MELLITUS WITH OTHER 12:00:0 0 AM [facility] DIAB[facility]IC [facility], ) neurological NEUROLOGICAL complication COMPLICATION E11.49 Type 2 diabetes TYPE 2 DIABETES Problem 12/17/2018 MEDG EN (St mellitus with other MELLITUS WITH OTHER 12:00:0 0 AM [facility] DIABETIC [facility], ) neurological NEUROLOGICAL complication COMPLICATION E11.49 Type 2 diabetes TYPE 2 DIABETES Problem 12/17/2018 MEDG EN (St mellitus with other MELLITUS WITH OTHER 12:00:0 0 AM [facility] DIAB[facility]IC [facility], ) neurological NEUROLOGICAL complication COMPLICATION E11.49 Type 2 diabetes TYPE 2 DIABETES Problem 12/17/2018 MEDG EN (St mellitus with other MELLITUS WITH OTHER 12:00:0 0 AM [facility] diabetic DIABETIC [facility], ) neurological NEUROLOGICAL complication COMPLICATION E11.49 Type 2 diabetes TYPE 2 DIABETES Problem 12/17/2018 MEDG EN (St mellitus with other MELLITUS WITH OTHER 12:00:0 0 AM [facility] diabetic DIABETIC [facility], ) neurological NEUROLOGICAL complication COMPLICATION E11.49 Type 2 diabetes TYPE 2 DIABETES Problem 12/17/2018 MEDG EN (St mellitus with other MELLITUS WITH OTHER 12:00:0 0 AM [facility] diabetic DIABETIC [facility], ) neurological NEUROLOGICAL complication COMPLICATION E11.49 Type 2 diabetes TYPE 2 DIABETES Problem 12/17/2018 MEDG EN (St mellitus with other MELLITUS WITH OTHER 12:00:0 0 AM [facility] diabetic DIABETIC [facility], ) neurological NEUROLOGICAL complication COMPLICATION H90.0 Conductive hearing CONDUCTIVE HEARING Problem 9 MEDGEN (St loss, bilateral LOSS, BILATERAL 12:00:00 AM [facility], ) H90.0 Conductive hearing CONDUCTIVE HEARING Problem 9 MEDGEN (St loss, bilateral LOSS, BILATERAL 12:00:00 AM [facility], ) H90.0 Conductive hearing CONDUCTIVE HEARING Problem 9 MEDGEN (St loss, bilateral LOSS, BILATERAL 12:00:00 AM [facility], ) H90.0 Conductive hearing CONDUCTIVE HEARING Problem 9 MEDGEN (St loss, bilateral LOSS, BILATERAL 12:00:00 AM [facility], ) H90.0 Conductive hearing CONDUCTIVE HEARING Problem 9 MEDGEN (St loss, bilateral LOSS, BILATERAL 12:00:00 AM [facility], ) H90.0 Conductive hearing CONDUCTIVE HEARING Problem 9 MEDGEN (St loss, bilateral LOSS, BILATERAL 12:00:00 AM [facility], ) H90.0 Conductive hearing CONDUCTIVE HEARING Problem 9 MEDGEN (St loss, bilateral LOSS, BILATERAL 12:00:00 AM [facility], ) H90.0 Conductive hearing CONDUCTIVE HEARING Problem 9 MEDGEN (St loss, bilateral LOSS, BILATERAL 12:00:00 AM [facility], ) H90.0 Conductive hearing CONDUCTIVE HEARING Problem 9 MEDGEN (St loss, bilateral LOSS, BILATERAL 12:00:00 AM [facility], ) H90.0 Conductive hearing CONDUCTIVE HEARING Problem 9 MEDGEN (St loss, bilateral LOSS, BILATERAL 12:00:00 AM [facility], ) H90.0 Conductive hearing CONDUCTIVE HEARING Problem 9 MEDGEN (St loss, bilateral LOSS, BILATERAL 12:00:00 AM [facility], ) H90.0 Conductive hearing CONDUCTIVE HEARING Problem 9 MEDGEN (St loss, bilateral LOSS, BILATERAL 12:00:00 AM [facility], ) H90.0 Conductive hearing CONDUCTIVE HEARING Problem 9 MEDGEN (St loss, bilateral LOSS, BILATERAL 12:00:00 AM [facility], ) H90.0 Conductive hearing CONDUCTIVE HEARING Problem 9 MEDGEN (St loss, bilateral LOSS, BILATERAL 12:00:00 AM [facility], ) M25.552 Pain in left hip PAIN IN LEFT HIP Problem 07/20/2018 ME DGEN (St 12:00:00 AM [facility], ) M25.552 Pain in left hip PAIN IN LEFT HIP Problem 07/20/2018 ME DGEN (St 12:00:00 AM [facility], ) M25.552 Pain in left hip PAIN IN LEFT HIP Problem 07/20/2018 ME DGEN (St 12:00:00 AM [facility], ) M25.552 Pain in left hip PAIN IN LEFT HIP Problem 07/20/2018 ME DGEN (St 12:00:00 AM [facility], ) M25.552 Pain in left hip PAIN IN LEFT HIP Problem 07/20/2018 ME DGEN (St 12:00:00 AM [facility], ) M25.552 Pain in left hip PAIN IN LEFT HIP Problem 07/20/2018 ME DGEN (St 12:00:00 AM [facility], ) M25.552 Pain in left hip PAIN IN LEFT HIP Problem 07/20/2018 ME DGEN (St 12:00:00 AM [facility], ) M25.552 Pain in left hip PAIN IN LEFT HIP Problem 07/20/2018 ME DGEN (St 12:00:00 AM [facility], ) M25.552 Pain in left hip PAIN IN LEFT HIP Problem 07/20/2018 ME DGEN (St 12:00:00 AM [facility], ) M25.552 Pain in left hip PAIN IN LEFT HIP Problem 07/20/2018 ME DGEN (St 12:00:00 AM [facility], ) M25.552 Pain in left hip PAIN IN LEFT HIP Problem 07/20/2018 ME DGEN (St 12:00:00 AM [facility], ) M25.552 Pain in left hip PAIN IN LEFT HIP Problem 07/20/2018 ME DGEN (St 12:00:00 AM [facility], ) M25.552 Pain in left hip PAIN IN LEFT HIP Problem 07/20/2018 ME DGEN (St 12:00:00 AM [facility], ) M25.552 Pain in left hip PAIN IN LEFT HIP Problem 07/20/2018 ME DGEN (St 12:00:00 AM [facility], ) R80.9 Proteinuria, PROTEINURIA, Problem 01/25/2018 MEDGEN (St unspecified UNSPECIFIED 12:00:00 AM [facility], ) R80.9 Proteinuria, PROTEINURIA, Problem 01/25/2018 MEDGEN (St unspecified UNSPECIFIED 12:00:00 AM [facility], ) R80.9 Proteinuria, PROTEINURIA, Problem 01/25/2018 MEDGEN (St unspecified UNSPECIFIED 12:00:00 AM [facility], ) R80.9 Proteinuria, PROTEINURIA, Problem 01/25/2018 MEDGEN (St unspecified UNSPECIFIED 12:00:00 AM [facility], ) R80.9 Proteinuria, PROTEINURIA, Problem 01/25/2018 MEDGEN (St unspecified UNSPECIFIED 12:00:00 AM [facility], ) R80.9 Proteinuria, PROTEINURIA, Problem 01/25/2018 MEDGEN (St unspecified UNSPECIFIED 12:00:00 AM [facility], ) R80.9 Proteinuria, PROTEINURIA, Problem 01/25/2018 MEDGEN (St unspecified UNSPECIFIED 12:00:00 AM [facility], ) R80.9 Proteinuria, PROTEINURIA, Problem 01/25/2018 MEDGEN (St unspecified UNSPECIFIED 12:00:00 AM [facility], ) R80.9 Proteinuria, PROTEINURIA, Problem 01/25/2018 MEDGEN (St unspecified UNSPECIFIED 12:00:00 AM [facility], ) R80.9 Proteinuria, PROTEINURIA, Problem 01/25/2018 MEDGEN (St unspecified UNSPECIFIED 12:00:00 AM [facility], ) R80.9 Proteinuria, PROTEINURIA, Problem 01/25/2018 MEDGEN (St unspecified UNSPECIFIED 12:00:00 AM [facility], ) R80.9 Proteinuria, PROTEINURIA, Problem 01/25/2018 MEDGEN (St unspecified UNSPECIFIED 12:00:00 AM [facility], ) R80.9 Proteinuria, PROTEINURIA, Problem 01/25/2018 MEDGEN (St unspecified UNSPECIFIED 12:00:00 AM [facility], ) R80.9 Proteinuria, PROTEINURIA, Problem 01/25/2018 MEDGEN (St unspecified UNSPECIFIED 12:00:00 AM [facility]) R94.4 Abnormal results of ABNORMAL RESULTS OF Problem 018 MEDGEN (St kidney function KIDNEY FUNCTION 12:00:00 AM Tony n's studies [facility], ) R79.89 Other specified OTHER SPECIFIED Problem 01/19/2018 MEDG EN (St abnormal findings ABNORMAL FINDINGS 12:00:00 AM Dony's of blood chemistry OF BLOOD CHEMISTRY [facility], ) E11.4 Type 2 diabetes TYPE 2 DIABETES Problem 01/19/2018 MEDG EN (St mellitus with MELLITUS WITH 12:00:00 AM Dony's neurological NEUROLOGICAL [facility], [facility]) complications COMPLICATIONS R94.4 Abnormal results of ABNORMAL RESULTS OF Problem 018 MEDGEN (St kidney function KIDNEY FUNCTION 12:00:00 AM Tony n's studies STUDIES [facility], ) R79.89 Other specified OTHER SPECIFIED Problem 01/19/2018 MEDG EN (St abnormal findings ABNORMAL FINDINGS 12:00:00 AM Dony's of blood chemistry OF BLOOD CHEMISTRY [facility], ) E11.4 Type 2 diabetes TYPE 2 DIABETES Problem 01/19/2018 MEDG EN (St mellitus with MELLITUS WITH 12:00:00 AM Dony's neurological NEUROLOGICAL [facility], P C) complications COMPLICATIONS R94.4 Abnormal results of ABNORMAL RESULTS OF Problem 018 MEDGEN (St kidney function KIDNEY FUNCTION 12:00:00 AM Tony n's studies STUDIES [facility], ) R79.89 Other specified OTHER SPECIFIED Problem 01/19/2018 MEDG EN (St abnormal findings ABNORMAL FINDINGS 12:00:00 AM Dony's of blood chemistry OF BLOOD CHEMISTRY [facility], ) E11.4 Type 2 diabetes TYPE 2 DIABETES Problem 01/19/2018 MEDG EN (St mellitus with MELLITUS WITH 12:00:00 AM Dony's neurological NEUROLOGICAL T [facility], P C) complications COMPLICATIONS R94.4 Abnormal results of ABNORMAL RESULTS OF Problem 018 MEDGEN (St kidney function KIDNEY FUNCTION 12:00:00 AM Tony n's studies STUDIES [facility], ) R79.89 Other specified OTHER SPECIFIED Problem 01/19/2018 MEDG EN (St abnormal findings ABNORMAL FINDINGS 12:00:00 AM Dony's of blood chemistry OF BLOOD CHEMISTRY [facility], ) E11.4 Type 2 diabetes TYPE 2 DIABETES Problem 01/19/2018 MEDG EN (St mellitus with MELLITUS WITH 12:00:00 AM Dony's neurological NEUROLOGICAL [facility], P C) complications COMPLICATIONS R94.4 Abnormal results of ABNORMAL RESULTS OF Problem 018 MEDGEN (St kidney function KIDNEY FUNCTION 12:00:00 AM Tony n's studies STUDIES [facility], ) R79.89 Other specified OTHER SPECIFIED Problem 01/19/2018 MEDG EN (St abnormal findings ABNORMAL FINDINGS 12:00:00 AM Dony's of blood chemistry OF BLOOD CHEMISTRY [facility], ) E11.4 Type 2 diabetes TYPE 2 DIABETES Problem 01/19/2018 MEDG EN (St mellitus with MELLITUS WITH 12:00:00 AM Dony's neurological NEUROLOGICAL [facility], P C) complications COMPLICATIONS R94.4 Abnormal results of ABNORMAL RESULTS OF Problem 018 MEDGEN (St kidney function KIDNEY FUNCTION 12:00:00 AM Tony n's studies STUDIES [facility], ) R79.89 Other specified OTHER SPECIFIED Problem 01/19/2018 MEDG EN (St abnormal findings ABNORMAL FINDINGS 12:00:00 AM Dony's of blood chemistry OF BLOOD CHEMISTRY [facility], ) E11.4 Type 2 diabetes TYPE 2 DIABETES Problem 01/19/2018 MEDG EN (St mellitus with MELLITUS WITH 12:00:00 AM Dony's neurological NEUROLOGICAL [facility], P C) complications COMPLICATIONS R94.4 Abnormal results of ABNORMAL RESULTS OF Problem 018 MEDGEN (St kidney function KIDNEY FUNCTION 12:00:00 AM Tony n's studies STUDIES [facility], ) R79.89 Other specified OTHER SPECIFIED Problem 01/19/2018 MEDG EN (St abnormal findings ABNORMAL FINDINGS 12:00:00 AM Dony's of blood chemistry OF BLOOD CHEMISTRY [facility]) E11.4 Type 2 diabetes TYPE 2 DIABETES Problem 01/19/2018 MEDG EN (St mellitus with MELLITUS WITH 12:00:00 AM Dony's neurological NEUROLOGICAL T [facility], [facility]) complications COMPLICATIONS R94.4 Abnormal results of ABNORMAL RESULTS OF Problem 018 MEDGEN (St kidney function KIDNEY FUNCTION 12:00:00 AM Tony n's studies STUDIES [facility], ) R79.89 Other specified OTHER SPECIFIED Problem 01/19/2018 MEDG EN (St abnormal findings ABNORMAL FINDINGS 12:00:00 AM Dony's of blood chemistry OF BLOOD CHEMISTRY [facility]) E11.4 Type 2 diabetes TYPE 2 DIABETES Problem 01/19/2018 MEDG EN (St mellitus with MELLITUS WITH 12:00:00 AM Dony's neurological NEUROLOGICAL [facility]) complications COMPLICATIONS R94.4 Abnormal results of ABNORMAL RESULTS OF Problem 018 MEDGEN (St kidney function KIDNEY FUNCTION 12:00:00 AM Tony n's studies STUDIES [facility], ) R94.4 Abnormal results of ABNORMAL RESULTS OF Problem 018 MEDGEN (St kidney function KIDNEY FUNCTION 12:00:00 AM Tony n's studies STUDIES [facility], ) R79.89 Other specified OTHER SPECIFIED Problem 01/19/2018 MEDG EN (St abnormal findings ABNORMAL FINDINGS 12:00:00 AM Dony's of blood chemistry OF BLOOD CHEMISTRY [facility]) E11.4 Type 2 diabetes TYPE 2 DIABETES Problem 01/19/2018 MEDG EN (St mellitus with MELLITUS WITH 12:00:00 AM Dony's neurological NEUROLOGICAL [facility], P C) complications COMPLICATIONS R94.4 Abnormal results of ABNORMAL RESULTS OF Problem 018 MEDGEN (St kidney function KIDNEY FUNCTION 12:00:00 AM Tony n's studies STUDIES [facility], ) R79.89 Other specified OTHER SPECIFIED Problem 01/19/2018 MEDG EN (St abnormal findings ABNORMAL FINDINGS 12:00:00 AM Dony's of blood chemistry OF BLOOD CHEMISTRY [facility], ) E11.4 Type 2 diabetes TYPE 2 DIABETES Problem 01/19/2018 MEDG EN (St mellitus with MELLITUS WITH 12:00:00 AM Dony's neurological NEUROLOGICAL [facility], P C) complications COMPLICATIONS R94.4 Abnormal results of ABNORMAL RESULTS OF Problem 018 MEDGEN (St kidney function KIDNEY FUNCTION 12:00:00 AM Tony n's studies STUDIES [facility], ) R79.89 Other specified OTHER SPECIFIED Problem 01/19/2018 MEDG EN (St abnormal findings ABNORMAL FINDINGS 12:00:00 AM Dony's of blood chemistry OF BLOOD CHEMISTRY [facility], ) E11.4 Type 2 diabetes TYPE 2 DIABETES Problem 01/19/2018 MEDG EN (St mellitus with MELLITUS WITH 12:00:00 AM Dony's neurological NEUROLOGICAL [facility], P C) complications COMPLICATIONS R94.4 Abnormal results of ABNORMAL RESULTS OF Problem 018 MEDGEN (St kidney function KIDNEY FUNCTION 12:00:00 AM Tony n's studies STUDIES [facility], ) R79.89 Other specified OTHER SPECIFIED Problem 01/19/2018 MEDG EN (St abnormal findings ABNORMAL FINDINGS 12:00:00 AM Dony's of blood chemistry OF BLOOD CHEMISTRY [facility], ) E11.4 Type 2 diabetes TYPE 2 DIABETES Problem 01/19/2018 MEDG EN (St mellitus with MELLITUS WITH 12:00:00 AM Dony's neurological NEUROLOGICAL [facility], P C) complications COMPLICATIONS R94.4 Abnormal results of ABNORMAL RESULTS OF Problem 018 MEDGEN (St kidney function KIDNEY FUNCTION 12:00:00 AM Tony n's studies STUDIES [facility], ) R79.89 Other specified OTHER SPECIFIED Problem 01/19/2018 MEDG EN (St abnormal findings ABNORMAL FINDINGS 12:00:00 AM Dony's of blood chemistry OF BLOOD CHEMISTRY [facility], ) E11.4 Type 2 diabetes TYPE 2 DIABETES Problem 01/19/2018 MEDG EN (St mellitus with MELLITUS WITH 12:00:00 AM Dony's neurological NEUROLOGICAL [facility], P C) complications COMPLICATIONS R94.4 Abnormal results of ABNORMAL RESULTS OF Problem 018 MEDGEN (St kidney function KIDNEY FUNCTION 12:00:00 AM Tony n's studies STUDIES [facility], ) R79.89 Other specified OTHER SPECIFIED Problem 01/19/2018 MEDG EN (St abnormal findings ABNORMAL FINDINGS 12:00:00 AM Doyn's of blood chemistry OF BLOOD CHEMISTRY [facility], ) E11.4 Type 2 diabetes TYPE 2 DIABETES Problem 01/19/2018 MEDG EN (St mellitus with MELLITUS WITH 12:00:00 AM Dony's neurological NEUROLOGICAL [facility], P C) complications COMPLICATIONS Z86.73 Personal history of PERSONAL HISTORY OF Problem 018 MEDGEN (St transient ischemic TRANSIENT ISCHEMIC 12:00:00 AM Dony's attack (TIA), and ATTACK (TIA), AND EDT Medical, ) cerebral infarction 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 E11.65 Type 2 diabetes TYPE 2 DIABETES Problem 12/27/2017 MEDG EN (St mellitus with MELLITUS WITH 12:00:00 AM Dony's hyperglycemia HYPERGLYCEMIA T Medical, ) Z86.73 Personal history of PERSONAL HISTORY OF Problem 018 MEDGEN (St transient ischemic TRANSIENT ISCHEMIC 12:00:00 AM Dony's attack (TIA), and ATTACK (TIA), AND T Medical, ) cerebral infarction 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 E11.65 Type 2 diabetes TYPE 2 DIABETES Problem 12/27/2017 MEDG EN (St mellitus with MELLITUS WITH 12:00:00 AM Dony's hyperglycemia HYPERGLYCEMIA T [facility], ) Z86.73 Personal history of PERSONAL HISTORY OF Problem 018 MEDGEN (St transient ischemic TRANSIENT ISCHEMIC 12:00:00 AM Dony's attack (TIA), and ATTACK (TIA), AND EDT Medical, ) cerebral infarction 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 E11.65 Type 2 diabetes TYPE 2 DIABETES Problem 12/27/2017 MEDG EN (St mellitus with MELLITUS WITH 12:00:00 AM Dony's hyperglycemia HYPERGLYCEMIA T [facility], ) Z86.73 Personal history of PERSONAL HISTORY OF Problem 018 MEDGEN (St transient ischemic TRANSIENT ISCHEMIC 12:00:00 AM Dony's attack (TIA), and ATTACK (TIA), AND EDT Medical, ) cerebral infarction 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 E11.65 Type 2 diabetes TYPE 2 DIABETES Problem 12/27/2017 MEDG EN (St mellitus with MELLITUS WITH 12:00:00 AM Dony's hyperglycemia HYPERGLYCEMIA EDT Medical, ) Z86.73 Personal history of PERSONAL HISTORY OF Problem 018 MEDGEN (St transient ischemic TRANSIENT ISCHEMIC 12:00:00 AM Dony's attack (TIA), and ATTACK (TIA), AND EDT Medical, ) cerebral infarction 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 E11.65 Type 2 diabetes TYPE 2 DIABETES Problem 12/27/2017 MEDG EN (St mellitus with MELLITUS WITH 12:00:00 AM Dony's hyperglycemia HYPERGLYCEMIA EDT Medical, ) Z86.73 Personal history of PERSONAL HISTORY OF Problem 018 MEDGEN (St transient ischemic TRANSIENT ISCHEMIC 12:00:00 AM Dony's attack (TIA), and ATTACK (TIA), AND EDT Medical, ) cerebral infarction 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 E11.65 Type 2 diabetes TYPE 2 DIABETES Problem 12/27/2017 MEDG EN (St mellitus with MELLITUS WITH 12:00:00 AM Dony's hyperglycemia HYPERGLYCEMIA EDT Medical, ) Z86.73 Personal history of PERSONAL HISTORY OF Problem 018 MEDGEN (St transient ischemic TRANSIENT ISCHEMIC 12:00:00 AM Dony's attack (TIA), and ATTACK (TIA), AND EDT Medical, ) cerebral infarction 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 E11.65 Type 2 diabetes TYPE 2 DIABETES Problem 12/27/2017 MEDG EN (St mellitus with MELLITUS WITH 12:00:00 AM Dony's hyperglycemia HYPERGLYCEMIA EDT Medical, ) Z86.73 Personal history of PERSONAL HISTORY OF Problem 018 MEDGEN (St transient ischemic TRANSIENT ISCHEMIC 12:00:00 AM Dony's attack (TIA), and ATTACK (TIA), AND EDT Medical, ) cerebral infarction 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 E11.65 Type 2 diabetes TYPE 2 DIABETES Problem 12/27/2017 MEDG EN (St mellitus with MELLITUS WITH 12:00:00 AM Dony's hyperglycemia HYPERGLYCEMIA EDT Medical, ) Z86.73 Personal history of PERSONAL HISTORY OF Problem 018 MEDGEN (St transient ischemic TRANSIENT ISCHEMIC 12:00:00 AM Dony's attack (TIA), and ATTACK (TIA), AND EDT Medical, ) cerebral infarction 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 E11.65 Type 2 diabetes TYPE 2 DIABETES Problem 12/27/2017 MEDG EN (St mellitus with MELLITUS WITH 12:00:00 AM Dony's hyperglycemia HYPERGLYCEMIA T [facility], ) Z86.73 Personal history of PERSONAL HISTORY OF Problem 018 MEDGEN (St transient ischemic TRANSIENT ISCHEMIC 12:00:00 AM Dony's attack (TIA), and ATTACK (TIA), AND EDT Medical, ) cerebral infarction 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 E11.65 Type 2 diabetes TYPE 2 DIABETES Problem 12/27/2017 MEDG EN (St mellitus with MELLITUS WITH 12:00:00 AM Dony's hyperglycemia HYPERGLYCEMIA T [facility], ) Z86.73 Personal history of PERSONAL HISTORY OF Problem 018 MEDGEN (St transient ischemic TRANSIENT ISCHEMIC 12:00:00 AM Dony's attack (TIA), and ATTACK (TIA), AND EDT Medical, ) cerebral infarction 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 E11.65 Type 2 diabetes TYPE 2 DIABETES Problem 12/27/2017 MEDG EN (St mellitus with MELLITUS WITH 12:00:00 AM Dony's hyperglycemia HYPERGLYCEMIA T [facility], ) Z86.73 Personal history of PERSONAL HISTORY OF Problem 018 MEDGEN (St transient ischemic TRANSIENT ISCHEMIC 12:00:00 AM Dony's attack (TIA), and ATTACK (TIA), AND EDT Medical, ) cerebral infarction 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 E11.65 Type 2 diabetes TYPE 2 DIABETES Problem 12/27/2017 MEDG EN (St mellitus with MELLITUS WITH 12:00:00 AM Dony's hyperglycemia HYPERGLYCEMIA T [facility], ) Z86.73 Personal history of PERSONAL HISTORY OF Problem 018 MEDGEN (St transient ischemic TRANSIENT ISCHEMIC 12:00:00 AM Dony's attack (TIA), and ATTACK (TIA), AND EDT Medical, ) cerebral infarction 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 E11.65 Type 2 diabetes TYPE 2 DIABETES Problem 12/27/2017 MEDG EN (St mellitus with MELLITUS WITH 12:00:00 AM Dony's hyperglycemia HYPERGLYCEMIA [facility], ) Z86.73 Personal history of PERSONAL HISTORY OF Problem 018 MEDGEN (St transient ischemic TRANSIENT ISCHEMIC 12:00:00 AM Dony's attack (TIA), and ATTACK (TIA), AND [facility], ) cerebral infarction 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 E11.65 Type 2 diabetes TYPE 2 DIABETES Problem 12/27/2017 MEDG EN (St mellitus with MELLITUS WITH 12:00:00 AM Dony's hyperglycemia HYPERGLYCEMIA [facility], ) Z86.73 Personal history of PERSONAL HISTORY OF Problem 018 MEDGEN (St transient ischemic TRANSIENT ISCHEMIC 12:00:00 AM Dony's attack (TIA), and ATTACK (TIA), AND T Medical, ) cerebral infarction 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 E11.65 Type 2 diabetes TYPE 2 DIABETES Problem 12/27/2017 MEDG EN (St mellitus with MELLITUS WITH 12:00:00 AM Dony's hyperglycemia HYPERGLYCEMIA [facility], ) M62.81 Muscle weakness MUSCLE WEAKNESS Problem 10/30/2017 MEDG EN (St (generalized) (GENERALIZED) 12:00:00 AM [facility], ) 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 10/30/2017 MEDGEN (St following cerebral FOLLOWING CEREBRAL 12:00:00 AM Dony's infarction INFARCTION [facility], ) I63.9 Cerebral CEREBRAL Problem 10/30/2017 MEDGEN (St infarction, INFARCTION, 12:00:00 AM Dony's unspecified UNSPECIFIED [facility], ) 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 10/30/2017 MEDGEN (St intracranial INTRACRANIAL 12:00:00 AM Dony's hemorrhage, HEMORRHAGE, [facility], ) unspecified UNSPECIFIED M62.81 Muscle weakness MUSCLE WEAKNESS Problem 10/30/2017 MEDG EN (St (generalized) (GENERALIZED) 12:00:00 AM [facility], ) 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 10/30/2017 MEDGEN (St following cerebral FOLLOWING CEREBRAL 12:00:00 AM Dony's infarction INFARCTION [facility], ) I63.9 Cerebral CEREBRAL Problem 10/30/2017 MEDGEN (St infarction, INFARCTION, 12:00:00 AM Dony's unspecified UNSPECIFIED EDT Medical, ) 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 10/30/2017 MEDGEN (St intracranial INTRACRANIAL 12:00:00 AM Dony's hemorrhage, HEMORRHAGE, EDT Medical, ) unspecified UNSPECIFIED M62.81 Muscle weakness MUSCLE WEAKNESS Problem 10/30/2017 MEDG EN (St (generalized) (GENERALIZED) 12:00[facility]00 [facility] 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 10/30/2017 MEDGEN (St following cerebral FOLLOWING CEREBRAL 12:00:00 AM Dony's infarction INFARCTION T [facility], ) I63.9 Cerebral CEREBRAL Problem 10/30/2017 MEDGEN (St infarction, INFARCTION, 12:00:00 AM Dony's unspecified UNSPECIFIED EDT Medical, ) 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 10/30/2017 MEDGEN (St intracranial INTRACRANIAL 12:00:00 AM Dony's hemorrhage, HEMORRHAGE, T Medical, ) unspecified UNSPECIFIED M62.81 Muscle weakness MUSCLE WEAKNESS Problem 10/30/2017 MEDG EN (St (generalized) (GENERALIZED) 12:00:00 AM Dony's EDT Medical, ) 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 10/30/2017 MEDGEN (St following cerebral FOLLOWING CEREBRAL 12:00:00 AM Dony's infarction INFARCTION T Medical, ) I63.9 Cerebral CEREBRAL Problem 10/30/2017 MEDGEN (St infarction, INFARCTION, 12:00:00 AM Dony's unspecified UNSPECIFIED EDT Medical, ) 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 10/30/2017 MEDGEN (St intracranial INTRACRANIAL 12:00:00 AM Dony's hemorrhage, HEMORRHAGE, EDT Medical, ) unspecified UNSPECIFIED M62.81 Muscle weakness MUSCLE WEAKNESS Problem 10/30/2017 MEDG EN (St (generalized) (GENERALIZED) 12:00:00 AM Dony's EDT [facility], ) 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 10/30/2017 MEDGEN (St following cerebral FOLLOWING CEREBRAL 12:00:00 AM Dony's infarction INFARCTION T [facility], ) I63.9 Cerebral CEREBRAL Problem 10/30/2017 MEDGEN (St infarction, INFARCTION, 12:00:00 AM Dony's unspecified UNSPECIFIED EDT Medical, ) 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 10/30/2017 MEDGEN (St intracranial INTRACRANIAL 12:00:00 AM Dony's hemorrhage, HEMORRHAGE, EDT Medical, ) unspecified UNSPECIFIED M62.81 Muscle weakness MUSCLE WEAKNESS Problem 10/30/2017 MEDG EN (St (generalized) (GENERALIZED) 12:00:00 AM Dony's EDT Medical, ) 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 10/30/2017 MEDGEN (St following cerebral FOLLOWING CEREBRAL 12:00:00 AM Dony's infarction INFARCTION EDT Medical, ) I63.9 Cerebral CEREBRAL Problem 10/30/2017 MEDGEN (St infarction, INFARCTION, 12:00:00 AM Dony's unspecified UNSPECIFIED EDT Medical, ) 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 10/30/2017 MEDGEN (St intracranial INTRACRANIAL 12:00:00 AM Dony's hemorrhage, HEMORRHAGE, EDT Medical, ) unspecified UNSPECIFIED M62.81 Muscle weakness MUSCLE WEAKNESS Problem 10/30/2017 MEDG EN (St (generalized) (GENERALIZED) 12:00:00 AM Dony's EDT Medical, ) 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 10/30/2017 MEDGEN (St following cerebral FOLLOWING CEREBRAL 12:00:00 AM Dony's infarction INFARCTION EDT Medical, ) I63.9 Cerebral CEREBRAL Problem 10/30/2017 MEDGEN (St infarction, INFARCTION, 12:00:00 AM Dony's unspecified UNSPECIFIED EDT Medical, ) 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 10/30/2017 MEDGEN (St intracranial INTRACRANIAL 12:00:00 AM Dony's hemorrhage, HEMORRHAGE, EDT Medical, ) unspecified UNSPECIFIED M62.81 Muscle weakness MUSCLE WEAKNESS Problem 10/30/2017 MEDG EN (St (generalized) (GENERALIZED) 12:00:00 AM Dony's EDT Medical, ) 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 10/30/2017 MEDGEN (St following cerebral FOLLOWING CEREBRAL 12:00:00 AM Dony's infarction INFARCTION EDT Medical, ) I63.9 Cerebral CEREBRAL Problem 10/30/2017 MEDGEN (St infarction, INFARCTION, 12:00:00 AM Dony's unspecified UNSPECIFIED EDT Medical, ) 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 10/30/2017 MEDGEN (St intracranial INTRACRANIAL 12:00:00 AM [facility] hemorrhage, HEMORRHAGE, EDT Medical, ) unspecified UNSPECIFIED M62.81 Muscle weakness MUSCLE WEAKNESS Problem 10/30/2017 MEDG EN (St (generalized) (GENERALIZED) 12:00:00 AM [facility] EDT Medical, ) 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 10/30/2017 MEDGEN (St following cerebral FOLLOWING CEREBRAL 12:00:00 AM D[facility]'s infarction INFARCTION EDT Medical, ) I63.9 Cerebral CEREBRAL Problem 10/30/2017 MEDGEN (St infarction, INFARCTION, 12:00:00 AM [facility] unspecified UNSPECIFIED EDT Medical, ) 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 10/30/2017 MEDGEN (St intracranial INTRACRANIAL 12:00:00 AM [facility]'s hemorrhage, HEMORRHAGE, EDT Medical, ) unspecified UNSPECIFIED M62.81 Muscle weakness MUSCLE WEAKNESS Problem 10/30/2017 MEDG EN (St (generalized) (GENERALIZED) 12:00:00 AM [facility] EDT Medical, ) 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 10/30/2017 MEDGEN (St following cerebral FOLLOWING CEREBRAL 12:00:00 AM Dony's infarction INFARCTION EDT Medical, ) I63.9 Cerebral CEREBRAL Problem 10/30/2017 MEDGEN (St infarction, INFARCTION, 12:00:00 AM [facility] unspecified UNSPECIFIED EDT Medical, ) 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 10/30/2017 MEDGEN (St intracranial INTRACRANIAL 12:00:00 AM [facility]'s hemorrhage, HEMORRHAGE, EDT Medical, ) unspecified UNSPECIFIED M62.81 Muscle weakness MUSCLE WEAKNESS Problem 10/30/2017 MEDG EN (St (generalized) (GENERALIZED) 12:00:00 AM [facility] EDT Medical, ) 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 10/30/2017 MEDGEN (St following cerebral FOLLOWING CEREBRAL 12:00:00 AM Dony's infarction INFARCTION EDT Medical, ) I63.9 Cerebral CEREBRAL Problem 10/30/2017 MEDGEN (St infarction, INFARCTION, 12:00:00 AM [facility]'s unspecified UNSPECIFIED EDT Medical, ) 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 10/30/2017 MEDGEN (St intracranial INTRACRANIAL 12:00:00 AM Dony's hemorrhage, HEMORRHAGE, EDT [facility], ) unspecified UNSPECIFIED M62.81 Muscle weakness MUSCLE WEAKNESS Problem 10/30/2017 MEDG EN (St (generalized) (GENERALIZED) 12:00:00 AM Dony's EDT [facility], ) 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 10/30/2017 MEDGEN (St following cerebral FOLLOWING CEREBRAL 12:00:00 AM Dony's infarction INFARCTION [facility], ) I63.9 Cerebral CEREBRAL Problem 10/30/2017 MEDGEN (St infarction, INFARCTION, 12:00:00 AM Dony's unspecified UNSPECIFIED T Medical, ) 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 10/30/2017 MEDGEN (St intracranial INTRACRANIAL 12:00:00 AM [facility]'s hemorrhage, HEMORRHAGE, T Medical, ) unspecified UNSPECIFIED M62.81 Muscle weakness MUSCLE WEAKNESS Problem 10/30/2017 MEDG EN (St (generalized) (GENERALIZED) 12:00:00 AM Dony's [facility], ) 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 10/30/2017 MEDGEN (St following cerebral FOLLOWING CEREBRAL 12:00:00 AM Dony's infarction INFARCTION T [facility], ) I63.9 Cerebral CEREBRAL Problem 10/30/2017 MEDGEN (St infarction, INFARCTION, 12:00:00 AM [facility]'s unspecified UNSPECIFIED T Medical, ) 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 10/30/2017 MEDGEN (St intracranial INTRACRANIAL 12:00:00 AM [facility]'s hemorrhage, HEMORRHAGE, T Medical, ) unspecified UNSPECIFIED M62.81 Muscle weakness MUSCLE WEAKNESS Problem 10/30/2017 MEDG EN (St (generalized) (GENERALIZED) 12:00:00 AM Odny's EDT [facility], ) 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 10/30/2017 MEDGEN (St following cerebral FOLLOWING CEREBRAL 12:00:00 AM Dony's infarction INFARCTION T [facility], PC) I63.9 Cerebral CEREBRAL Problem 10/30/2017 MEDGEN (St infarction, INFARCTION, 12:00:00 AM [facility] unspecified UNSPECIFIED EDT Medical, PC) 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 10/30/2017 MEDGEN (St intracranial INTRACRANIAL 12:00:00 AM [facility]'s hemorrhage, HEMORRHAGE, EDT Medical, PC) unspecified UNSPECIFIED M62.81 Muscle weakness MUSCLE WEAKNESS Problem 10/30/2017 MEDG EN (St (generalized) (GENERALIZED) 12:00:00 AM Dony's EDT Medical, PC) 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 10/30/2017 MEDGEN (St following cerebral FOLLOWING CEREBRAL 12:00:00 AM Dony's infarction INFARCTION EDT Medical, PC) I63.9 Cerebral CEREBRAL Problem 10/30/2017 MEDGEN (St infarction, INFARCTION, 12:00:00 AM [facility]'s unspecified UNSPECIFIED EDT Medical, PC) 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 10/30/2017 MEDGEN (St intracranial INTRACRANIAL 12:00:00 AM [facility] hemorrhage, HEMORRHAGE, EDT Medical, PC) unspecified UNSPECIFIED F17.290 Nicotine NICOTINE Problem 08/28/2017 MEDGEN (St dependence, other DEPENDENCE, OTHER 12:00:00 AM [facility] tobacco product, TOBACCO PRODUCT, EDT Me dical, PC) uncomplicated UNCOMPLICATED F17.290 Nicotine NICOTINE Problem 08/28/2017 MEDGEN (St dependence, other DEPENDENCE, OTHER 12:00:00 AM [facility] tobacco product, TOBACCO PRODUCT, EDT Me dical, PC) uncomplicated UNCOMPLICATED F17.290 Nicotine NICOTINE Problem 08/28/2017 MEDGEN (St dependence, other DEPENDENCE, OTHER 12:00:00 AM [facility] tobacco product, TOBACCO PRODUCT, EDT Me dical, PC) uncomplicated UNCOMPLICATED F17.290 Nicotine NICOTINE Problem 08/28/2017 MEDGEN (St dependence, other DEPENDENCE, OTHER 12:00:00 AM [facility] tobacco product, TOBACCO PRODUCT, EDT Me dical, PC) uncomplicated UNCOMPLICATED F17.290 Nicotine NICOTINE Problem 08/28/2017 MEDGEN (St dependence, other DEPENDENCE, OTHER 12:00:00 AM [facility] tobacco product, TOBACCO PRODUCT, EDT Me dical, PC) uncomplicated UNCOMPLICATED F17.290 Nicotine NICOTINE Problem 08/28/2017 MEDGEN (St dependence, other DEPENDENCE, OTHER 12:00:00 AM [facility] tobacco product, TOBACCO PRODUCT, EDT Me dical, PC) uncomplicated UNCOMPLICATED F17.290 Nicotine NICOTINE Problem 08/28/2017 MEDGEN (St dependence, other DEPENDENCE, OTHER 12:00:00 AM [facility] tobacco product, TOBACCO PRODUCT, EDT Me dical, PC) uncomplicated UNCOMPLICATED F17.290 Nicotine NICOTINE Problem 08/28/2017 MEDGEN (St dependence, other DEPENDENCE, OTHER 12:00:00 AM [facility] tobacco product, TOBACCO PRODUCT, EDT Me dical, PC) uncomplicated UNCOMPLICATED F17.290 Nicotine NICOTINE Problem 08/28/2017 MEDGEN (St dependence, other DEPENDENCE, OTHER 12:00:00 AM [facility] tobacco product, TOBACCO PRODUCT, EDT Me dical, PC) uncomplicated UNCOMPLICATED F17.290 Nicotine NICOTINE Problem 08/28/2017 MEDGEN (St dependence, other DEPENDENCE, OTHER 12:00:00 AM [facility] tobacco product, TOBACCO PRODUCT, EDT Me dical, PC) uncomplicated UNCOMPLICATED F17.290 Nicotine NICOTINE Problem 08/28/2017 MEDGEN (St dependence, other DEPENDENCE, OTHER 12:00:00 AM [facility] tobacco product, TOBACCO PRODUCT, EDT Me dical, PC) uncomplicated UNCOMPLICATED F17.290 Nicotine NICOTINE Problem 08/28/2017 MEDGEN (St dependence, other DEPENDENCE, OTHER 12:00:00 AM [facility] tobacco product, TOBACCO PRODUCT, EDT Me dical, PC) uncomplicated UNCOMPLICATED F17.290 Nicotine NICOTINE Problem 08/28/2017 MEDGEN (St dependence, other DEPENDENCE, OTHER 12:00:00 AM [facility] tobacco product, TOBACCO PRODUCT, EDT Me dical, PC) uncomplicated UNCOMPLICATED F17.290 Nicotine NICOTINE Problem 08/28/2017 MEDGEN (St dependence, other DEPENDENCE, OTHER 12:00:00 AM [facility] tobacco product, TOBACCO PRODUCT, EDT Me dical, PC) uncomplicated UNCOMPLICATED F17.290 Nicotine NICOTINE Problem 08/28/2017 MEDGEN (St dependence, other DEPENDENCE, OTHER 12:00:00 AM Dony's tobacco product, TOBACCO PRODUCT, EDT Me dical, PC) uncomplicated UNCOMPLICATED E78.5 Hyperlipidemia, HYPERLIPIDEMIA, Problem 07/31/2017 MEDG EN (St unspecified UNSPECIFIED 12:00:00 AM [facility] EDT Medical, PC) E78.5 Hyperlipidemia, HYPERLIPIDEMIA, Problem 07/31/2017 MEDG EN (St unspecified UNSPECIFIED 12:00:00 AM [facility], ) E78.5 Hyperlipidemia, HYPERLIPIDEMIA, Problem 07/31/2017 MEDG EN (St unspecified UNSPECIFIED 12:00:00 AM [facility], ) E78.5 Hyperlipidemia, HYPERLIPIDEMIA, Problem 07/31/2017 MEDG EN (St unspecified UNSPECIFIED 12:00:00 AM [facility], ) E78.5 Hyperlipidemia, HYPERLIPIDEMIA, Problem 07/31/2017 MEDG EN (St unspecified UNSPECIFIED 12:00:00 AM [facility], ) E78.5 Hyperlipidemia, HYPERLIPIDEMIA, Problem 07/31/2017 MEDG EN (St unspecified UNSPECIFIED 12:00:00 AM [facility], ) E78.5 Hyperlipidemia, HYPERLIPIDEMIA, Problem 07/31/2017 MEDG EN (St unspecified UNSPECIFIED 12:00:00 AM [facility], ) E78.5 Hyperlipidemia, HYPERLIPIDEMIA, Problem 07/31/2017 MEDG EN (St unspecified UNSPECIFIED 12:00:00 AM [facility]) E78.5 Hyperlipidemia, HYPERLIPIDEMIA, Problem 07/31/2017 MEDG EN (St unspecified UNSPECIFIED 12:00:00 AM [facility]) E78.5 Hyperlipidemia, HYPERLIPIDEMIA, Problem 07/31/2017 MEDG EN (St unspecified UNSPECIFIED 12:00:00 AM [facility], ) E78.5 Hyperlipidemia, HYPERLIPIDEMIA, Problem 07/31/2017 MEDG EN (St unspecified UNSPECIFIED 12:00:00 AM [facility]) E78.5 Hyperlipidemia, HYPERLIPIDEMIA, Problem 07/31/2017 MEDG EN (St unspecified UNSPECIFIED 12:00:00 AM [facility], ) E78.5 Hyperlipidemia, HYPERLIPIDEMIA, Problem 07/31/2017 MEDG EN (St unspecified UNSPECIFIED 12:00:00 AM [facility]) E78.5 Hyperlipidemia, HYPERLIPIDEMIA, Problem 07/31/2017 MEDG EN (St unspecified UNSPECIFIED 12:00:00 AM [facility]) E78.5 Hyperlipidemia, HYPERLIPIDEMIA, Problem 07/31/2017 MEDG EN (St unspecified UNSPECIFIED 12:00:00 AM [facility], ) E87.5 Hyperkalemia HYPERKALEMIA Problem 07/10/2017 MEDGEN (St 12:00:00 AM [facility], ) E87.5 Hyperkalemia HYPERKALEMIA Problem 07/10/2017 MEDGEN (St 12:00:00 AM [facility], ) E87.5 Hyperkalemia HYPERKALEMIA Problem 07/10/2017 MEDGEN (St 12:00:00 AM [facility], ) E87.5 Hyperkalemia HYPERKALEMIA Problem 07/10/2017 MEDGEN (St 12:00:00 AM [facility], ) E87.5 Hyperkalemia HYPERKALEMIA Problem 07/10/2017 MEDGEN (St 12:00:00 AM [facility], ) E87.5 Hyperkalemia HYPERKALEMIA Problem 07/10/2017 MEDGEN (St 12:00:00 AM [facility], ) E87.5 Hyperkalemia HYPERKALEMIA Problem 07/10/2017 MEDGEN (St 12:00:00 AM [facility], ) E87.5 Hyperkalemia HYPERKALEMIA Problem 07/10/2017 MEDGEN (St 12:00:00 AM [facility], ) E87.5 Hyperkalemia HYPERKALEMIA Problem 07/10/2017 MEDGEN (St 12:00:00 AM [facility], ) E87.5 Hyperkalemia HYPERKALEMIA Problem 07/10/2017 MEDGEN (St 12:00:00 AM [facility], ) E87.5 Hyperkalemia HYPERKALEMIA Problem 07/10/2017 MEDGEN (St 12:00:00 AM [facility], ) E87.5 Hyperkalemia HYPERKALEMIA Problem 07/10/2017 MEDGEN (St 12:00:00 AM [facility], ) E87.5 Hyperkalemia HYPERKALEMIA Problem 07/10/2017 MEDGEN (St 12:00:00 AM [facility], ) E87.5 Hyperkalemia HYPERKALEMIA Problem 07/10/2017 MEDGEN (St 12:00:00 AM [facility], ) E87.5 Hyperkalemia HYPERKALEMIA Problem 07/10/2017 MEDGEN (St 12:00:00 AM [facility], ) K59.09 Other constipation OTHER CONSTIPATION Problem 8 MEDGEN (St 12:00:00 AM [facility], ) I10 Essential (primary) ESSENTIAL (PRIMARY) Problem 018 MEDGEN (St hypertension HYPERTENSION 12:00:00 AM [facility], ) E11.9 Type 2 diabetes TYPE 2 DIABETES Problem 06/05/2017 MEDG EN (St mellitus without MELLITUS WITHOUT 12:00:00 AM J ohn's complications COMPLICATIONS EST Medical, ) K59.09 Other constipation OTHER CONSTIPATION Problem 8 MEDGEN (St 12:00:00 AM [facility], ) I10 Essential (primary) ESSENTIAL (PRIMARY) Problem 018 MEDGEN (St hypertension HYPERTENSION 12:00:00 AM [facility], ) E11.9 Type 2 diabetes TYPE 2 DIABETES Problem 06/05/2017 MEDG EN (St mellitus without MELLITUS WITHOUT 12:00:00 AM J ohn's complications COMPLICATIONS EST Medical, ) K59.09 Other constipation OTHER CONSTIPATION Problem 8 MEDGEN (St 12:00:00 AM [facility], ) I10 Essential (primary) ESSENTIAL (PRIMARY) Problem 018 MEDGEN (St hypertension HYPERTENSION 12:00:00 AM [facility], ) E11.9 Type 2 diabetes TYPE 2 DIABETES Problem 06/05/2017 MEDG EN (St mellitus without MELLITUS WITHOUT 12:00:00 AM J ohn's complications COMPLICATIONS EST Medical, ) K59.09 Other constipation OTHER CONSTIPATION Problem 8 MEDGEN (St 12:00:00 AM [facility], ) I10 Essential (primary) ESSENTIAL (PRIMARY) Problem 018 MEDGEN (St hypertension HYPERTENSION 12:00:00 AM [facility], ) E11.9 Type 2 diabetes TYPE 2 DIABETES Problem 06/05/2017 MEDG EN (St mellitus without MELLITUS WITHOUT 12:00:00 AM J ohn's complications COMPLICATIONS EST Medical, ) K59.09 Other constipation OTHER CONSTIPATION Problem 8 MEDGEN (St 12:00:00 AM [facility], ) I10 Essential (primary) ESSENTIAL (PRIMARY) Problem 018 MEDGEN (St hypertension HYPERTENSION 12:00:00 AM [facility], ) E11.9 Type 2 diabetes TYPE 2 DIABETES Problem 06/05/2017 MEDG EN (St mellitus without MELLITUS WITHOUT 12:00:00 AM J ohn's complications COMPLICATIONS EST Medical, ) K59.09 Other constipation OTHER CONSTIPATION Problem 8 MEDGEN (St 12:00:00 AM [facility], ) I10 Essential (primary) ESSENTIAL (PRIMARY) Problem 018 MEDGEN (St hypertension HYPERTENSION 12:00:00 AM [facility], ) E11.9 Type 2 diabetes TYPE 2 DIABETES Problem 06/05/2017 MEDG EN (St mellitus without MELLITUS WITHOUT 12:00:00 AM J ohn's complications COMPLICATIONS EST Medical, PC) K59.09 Other constipation OTHER CONSTIPATION Problem 8 MEDGEN (St 12:00:00 AM [facility], ) I10 Essential (primary) ESSENTIAL (PRIMARY) Problem 018 MEDGEN (St hypertension HYPERTENSION 12:00:00 AM [facility], ) E11.9 Type 2 diabetes TYPE 2 DIABETES Problem 06/05/2017 MEDG EN (St mellitus without MELLITUS WITHOUT 12:00:00 AM J ohn's complications COMPLICATIONS EST Medical, ) K59.09 Other constipation OTHER CONSTIPATION Problem 8 MEDGEN (St 12:00:00 AM [facility], ) I10 Essential (primary) ESSENTIAL (PRIMARY) Problem 018 MEDGEN (St hypertension HYPERTENSION 12:00:00 AM [facility], ) E11.9 Type 2 diabetes TYPE 2 DIABETES Problem 06/05/2017 MEDG EN (St mellitus without MELLITUS WITHOUT 12:00:00 AM J ohn's complications COMPLICATIONS EST Medical, ) K59.09 Other constipation OTHER CONSTIPATION Problem 8 MEDGEN (St 12:00:00 AM [facility], ) I10 Essential (primary) ESSENTIAL (PRIMARY) Problem 018 MEDGEN (St hypertension HYPERTENSION 12:00:00 AM [facility], ) E11.9 Type 2 diabetes TYPE 2 DIABETES Problem 06/05/2017 MEDG EN (St mellitus without MELLITUS WITHOUT 12:00:00 AM J ohn's complications COMPLICATIONS EST Medical, PC) K59.09 Other constipation OTHER CONSTIPATION Problem 8 MEDGEN (St 12:00:00 AM [facility], ) I10 Essential (primary) ESSENTIAL (PRIMARY) Problem 018 MEDGEN (St hypertension HYPERTENSION 12:00:00 AM [facility], ) E11.9 Type 2 diabetes TYPE 2 DIABETES Problem 06/05/2017 MEDG EN (St mellitus without MELLITUS WITHOUT 12:00:00 AM J ohn's complications COMPLICATIONS EST Medical, PC) K59.09 Other constipation OTHER CONSTIPATION Problem 8 MEDGEN (St 12:00:00 AM [facility], ) I10 Essential (primary) ESSENTIAL (PRIMARY) Problem 018 MEDGEN (St hypertension HYPERTENSION 12:00:00 AM [facility], ) E11.9 Type 2 diabetes TYPE 2 DIABETES Problem 06/05/2017 MEDG EN (St mellitus without MELLITUS WITHOUT 12:00:00 AM J ohn's complications COMPLICATIONS EST Medical, PC) K59.09 Other constipation OTHER CONSTIPATION Problem 8 MEDGEN (St 12:00:00 AM [facility], ) I10 Essential (primary) ESSENTIAL (PRIMARY) Problem 018 MEDGEN (St hypertension HYPERTENSION 12:00:00 AM [facility], ) E11.9 Type 2 diabetes TYPE 2 DIABETES Problem 06/05/2017 MEDG EN (St mellitus without MELLITUS WITHOUT 12:00:00 AM J ohn's complications COMPLICATIONS EST Medical, PC) K59.09 Other constipation OTHER CONSTIPATION Problem 8 MEDGEN (St 12:00:00 AM [facility], ) I10 Essential (primary) ESSENTIAL (PRIMARY) Problem 018 MEDGEN (St hypertension HYPERTENSION 12:00:00 AM [facility], ) E11.9 Type 2 diabetes TYPE 2 DIABETES Problem 06/05/2017 MEDG EN (St mellitus without MELLITUS WITHOUT 12:00:00 AM J ohn's complications COMPLICATIONS EST [facility], ) K59.09 Other constipation OTHER CONSTIPATION Problem 8 MEDGEN (St 12:00:00 AM [facility], ) I10 Essential (primary) ESSENTIAL (PRIMARY) Problem 018 MEDGEN (St hypertension HYPERTENSION 12:00:00 AM [facility], ) E11.9 Type 2 diabetes TYPE 2 DIABETES Problem 06/05/2017 MEDG EN (St mellitus without MELLITUS WITHOUT 12:00:00 AM J ohn's complications COMPLICATIONS EST Medical, ) K59.09 Other constipation OTHER CONSTIPATION Problem 8 MEDGEN (St 12:00:00 AM [facility], ) I10 Essential (primary) ESSENTIAL (PRIMARY) Problem 018 MEDGEN (St hypertension HYPERTENSION 12:00:00 AM [facility], ) E11.9 Type 2 diabetes TYPE 2 DIABETES Problem 06/05/2017 MEDG EN (St mellitus without MELLITUS WITHOUT 12:00:00 AM J ohn's complications COMPLICATIONS EST Medical, ) E78.5 Hyperlipidemia, HYPERLIPIDEMIA, Diagnosis 11/05/2019 [facility] unspecified UNSPECIFIED 03:45:00 PM Medical EDT Center E11.9 Type 2 diabetes TYPE 2 DIABETES Diagnosis 11/05/2019 [facility] mellitus without MELLITUS WITHOUT 03:45:00 PM M edical complications COMPLICATIONS EDT Center I11.0 Hypertensive heart HYPERTENSIVE HEART Diagnosis 0 [place] disease with heart DISEASE WITH HEART 03:45:00 PM Medical failure FAILURE EDT Center E87.6 Hypokalemia HYPOKALEMIA Diagnosis 11/05/2019 [place] [facility] 03:45:00 PM Medical EDT Center J18.9 Pneumonia, PNEUMONIA, Diagnosis 11/05/2019 [place] unspecified UNSPECIFIED 03:45:00 PM Medical organism ORGANISM EDT Center N17.9 Acute kidney ACUTE KIDNEY Diagnosis 11/05/2019 [facility] failure, FAILURE, 03:45:00 PM Medical unspecified UNSPECIFIED EDT Center I50.31 Acute diastolic ACUTE DIASTOLIC Diagnosis 11/05/2019 [facility] (congestive) heart (CONGESTIVE) HEART 03:45:00 PM Medical failure FAILURE EDT Center I16.0 Hypertensive HYPERTENSIVE Diagnosis 11/05/2019 [facility] urgency URGENCY 03:45:00 PM Medical EDT Center Z86.73 Personal history of PRSNL HX OF TIA Diagnosis 11/05/2019 [place] transient ischemic (TIA), AND CEREB 03:45:00 PM Medical attack (TIA), and INFRC W/O RESID EDT Ce nter cerebral infarction DEFICITS without residual deficits 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 020 [facility] use of oral USE OF ORAL 03:45:00 PM Medical hypoglycemic drugs HYPOGLYCEMIC DRUGS EDT Center I50.9 Heart failure, HEART FAILURE, Diagnosis 11/03/2019 [facility] unspecified UNSPECIFIED 12:51:00 PM Medical EDT Center 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 10:05:00 AM Medical disorder DISORDER EST Center I10 Essential (primary) ESSENTIAL (PRIMARY) Diagnosis [facility] hypertension HYPERTENSION 04:59:00 PM Medical EST Center Y99.9 Unspecified UNSPECIFIED Diagnosis 06/15/2018 [facility] external cause EXTERNAL CAUSE 04:59:00 PM Medic al status STATUS EST Center Y92.[address] Diagnosis 06/15/2018 [place] or not applicable OR NOT APPLICABLE 04:59:00 PM Medical EST Center Y93.9 Activity, ACTIVITY, Diagnosis 06/15/2018 [facility] unspecified UNSPECIFIED 04:59:00 PM Medical EST Center X58.XXXA Exposure to other EXPOSURE TO OTHER Diagnosis 06/15/2018 [facility] specified factors, SPECIFIED FACTORS, 04:59:00 PM Medical initial encounter INITIAL ENCOUNTER EST Center T46.4X2A Poisoning by POISN BY Diagnosis 06/15/2018 [facility] angiotensin-convert [id number] 04:59:0 0 PM Medical ing-enzyme NZYME INHIBTR, EST Center inhibitors, SELF-HARM, INIT intentional self-harm, initial encounter F60.9 Personality PERSONALITY Diagnosis 06/15/2018 [facility] disorder, DISORDER, 04:59:00 PM Medical unspecified UNSPECIFIED EST Center Z00.8 Encounter for other ENCOUNTER FOR OTHER Diagnosis [facility] general examination GENERAL EXAMINATION 04:59:0 0 PM Medical EST Center Surgeries/Procedures Procedure Description Date Indications Data Source(s) Documentation of current 12/11/2019 MED GEN (Jessica's medications (procedure) 12:00:00 AM EDT [facility]) Documentation of current 12/11/2019 MED GEN ([facility] medications (procedure) 12:00:00 AM EDT [facility]) Documentation of current 12/11/2019 MED GEN ([facility]ica's medications (procedure) 12:00:00 AM EDT [facility]) OFFICE OUTPATIENT VISIT 12/11/2019 MED[facility] EN [facility] 12/09/2019 MED GEN (Jessica's medications (procedure) 12:00:00 AM EDT [facility]) Documentation of current 12/09/2019 MED GEN (Jessica's medications (procedure) 12:00:00 AM EDT [facility]) Documentation of current 12/09/2019 MED GEN (Jessica's medications (procedure) 12:00:00 AM EDT [facility]) Documentation of current 12/09/2019 MED GEN (Jessica[facility] medications (procedure) 12:00:00 AM EDT [facility]) Documentation of current 12/09/2019 MED GEN ([facility]ica[facility] medications (procedure) 12:00:00 AM EDT [facility]) Documentation of current 12/09/2019 MED GEN ([facility]ica[facility] medications (procedure) 12:00:00 AM EDT [facility]) Documentation of current 12/09/2019 MED GEN ([facility]ica[facility] medications (procedure) 12:00:00 AM EDT [facility]) Documentation of current 12/09/2019 MED GEN ([facility]ica's medications (procedure) 12:00:00 AM EDT [facility]) Documentation of current 12/09/2019 MED GEN ([facility]ica[facility] medications (procedure) 12:00:00 AM EDT [facility]) Documentation of current 12/09/2019 MED GEN ([facility]ica[facility] medications (procedure) 12:00:00 AM EDT [facility]) Documentation of current 12/09/2019 MED GEN ([facility]ica[facility] medications (procedure) 12:00:00 AM EDT [facility], PC) COLLECTION VENOUS BLOOD 12/09/2019 MEDG EN ([facility] VENIPUNCTURE 12:00:00 AM [facility], PC) Documentation of current 12/09/2019 MED GEN (Jessica's medications (procedure) 12:00:00 AM EDT [facility], PC) Documentation of current 12/09/2019 MED GEN (Jessica's medications (procedure) 12:00:00 AM EDT [facility], PC) Documentation of current 12/09/2019 MED GEN (Jessica's medications (procedure) 12:00:00 AM EDT [facility], PC) Documentation of current 12/09/2019 MED GEN ([facility]ica[facility] medications (procedure) 12:00:00 AM EDT [facility], PC) Documentation of current 12/09/2019 MED GEN ([facility]ica[facility] medications (procedure) 12:00:00 AM EDT [facility], PC) Documentation of current 12/09/2019 MED GEN (Jessica[facility] medications (procedure) 12:00:00 AM EDT [facility], PC) Documentation of current 12/09/2019 MED GEN ([facility]ica[facility] medications (procedure) 12:00:00 AM EDT [facility], PC) Documentation of current 12/09/2019 MED GEN ([facility]ica[facility] medications (procedure) 12:00:00 AM EDT [facility], PC) Documentation of current 12/09/2019 MED GEN ([facility]ica[facility] medications (procedure) 12:00:00 AM EDT [facility], PC) Documentation of current 12/09/2019 MED GEN (Jessica[facility] medications (procedure) 12:00:00 AM EDT [facility], PC) Documentation of current 12/09/2019 MED GEN (Jessica's medications (procedure) 12:00:00 AM EDT [facility], PC) COLLECTION VENOUS BLOOD 12/09/2019 MEDG EN ([facility] VENIPUNCTURE 12:00:00 AM [facility], PC) Documentation of current 12/09/2019 MED GEN (Jessica's medications (procedure) 12:00:00 AM EDT [facility]) Documentation of current 12/09/2019 MED GEN ([facility]ica[facility] medications (procedure) 12:00:00 AM EDT [facility], [facility]) Documentation of current 12/09/2019 MED GEN ([facility] medications (procedure) 12:00:00 AM EDT natalie, ) Documentation of current 12/09/2019 MED GEN ([facility] medications (procedure) 12:00:00 AM EDT natalie ) Documentation of current 12/09/2019 MED GEN ([facility] medications (procedure) 12:00:00 AM EDT natalie, ) Documentation of current 12/09/2019 MED GEN ([facility] medications (procedure) 12:00:00 AM EDT natalie ) Documentation of current 12/09/2019 MED GEN ([facility] medications (procedure) 12:00:00 AM EDT [facility], [facility]) Documentation of current 12/09/2019 MED GEN ([facility] medications (procedure) 12:00:00 AM EDT [facility], PC) Documentation of current 12/09/2019 MED GEN ([facility] medications (procedure) 12:00:00 AM EDT natalie ) Documentation of current 12/09/2019 MED GEN ([facility] medications (procedure) 12:00:00 AM EDT natalie, ) OFFICE OUTPATIENT VISIT 11/25/2019 MEDG EN ([facility] 15 MINUTES 12:00:00 AM EDT Medical, ) COLLECTION VENOUS BLOOD 11/25/2019 MEDG EN ([facility] VENIPUNCTURE 12:00:00 AM EDT Medical, ) OFFICE OUTPATIENT VISIT 11/25/2019 MEDG EN ([facility] 15 MINUTES 12:00:00 AM EDT Medical, ) COLLECTION VENOUS BLOOD 11/25/2019 MEDG EN ([facility] VENIPUNCTURE 12:00:00 AM EDT Medical, ) OFFICE OUTPATIENT VISIT 11/25/2019 MEDG EN ([facility] 15 MINUTES 12:00:00 AM EDT Medical, ) COLLECTION VENOUS BLOOD 11/25/2019 MEDG EN ([facility] VENIPUNCTURE 12:00:00 AM EDT Medical, ) OFFICE OUTPATIENT VISIT 11/25/2019 MEDG EN ([facility] 15 MINUTES 12:00:00 AM EDT Medical, ) COLLECTION VENOUS BLOOD 11/25/2019 MEDG EN ([facility] VENIPUNCTURE 12:00:00 AM ED Medical, ) OFFICE OUTPATIENT VISIT 11/25/2019 MEDG EN ([facility] 15 MINUTES 12:00:00 AM EDT Medical, ) OFFICE OUTPATIENT VISIT 11/25/2019 MEDG EN ([facility] 15 MINUTES 12:00:00 AM EDT Medical, ) OFFICE OUTPATIENT VISIT 11/25/2019 MEDG EN ([facility] 15 MINUTES 12:00:00 AM EDT [facility], ) Documentation of current 11/06/2019 MED GEN ([facility] medications [facility]procedure) [facility] current 11/06/2019 MED GEN (Jessica's medications (procedure) 12:00:00 AM EDT edical, ) Documentation of current 11/06/2019 MED GEN ([facility] medications (procedure) 12:00:[facility] Documentation of current 11/06/2019 MED GEN (Jessica's medications (procedure) 12:00:00 AM EDT edical, ) Documentation of current 11/06/2019 MED GEN ([facility] medications (procedure) 12:00:[facility] Documentation of current 11/06/2019 MED GEN ([facility] medications (procedure) 12:00:00 AM [facility] Documentation of current 11/06/2019 MED GEN ([facility] medications (procedure) 12:00:00 [facility] Documentation of current 11/06/2019 MED GEN (Jessica's medications (procedure) 12:00:00 AM EDT [facility], ) Documentation of current 11/06/2019 MED GEN ([facility] medications (procedure) 12:00:00 AM EDT [facility], ) Documentation of current 11/06/2019 MED GEN ([facility]'s medications (procedure) 12:00:00 AM EDT edical, ) OFFICE OUTPATIENT VISIT 11/06/2019 MEDG EN ([facility] 25 MINUTES 12:00:00 AM EDT Medical, PC) OFFICE OUTPATIENT NEW 20 11/06/2019 MED GEN ([facility] MINUTES 12:00:00 AM EDT [facility], ) DEBRIDEMENT NAIL ANY 11/06/2019 MEDGEN ([facility] METHOD 6/> 12:00:00 AM EDT Medical, ) Documentation of current 11/06/2019 MED GEN ([facility]ica's medications (procedure) 12:00:00 AM EDT edical, ) Documentation of current 11/06/2019 MED GEN ([facility] medications (procedure) 12:00:00 AM EDT edical, ) Documentation of current 11/06/2019 MED GEN ([facility]ica[facility] medications (procedure) 12:00:00 AM EDT edical, ) Documentation of current 11/06/2019 MED GEN ([facility] medications (procedure) 12:00:00 AM EDT edical, ) Documentation of current 11/06/2019 MED GEN ([facility]ica[facility] medications (procedure) 12:00:00 AM EDT edical, ) Documentation of current 11/06/2019 MED GEN ([facility] medications (procedure) 12:00:00 AM EDT [facility], PC) Documentation of current 11/06/2019 MED GEN ([facility]ica's medications (procedure) 12:00:00 AM EDT edical, ) Documentation of current 11/06/2019 MED GEN ([facility]ica[facility] medications (procedure) 12:00:00 AM EDT edical, ) Documentation of current 11/06/2019 MED GEN ([facility] medications (procedure) 12:00:[facility] Documentation of current 11/06/2019 MED GEN (Jessica's medications (procedure) 12:00:00 AM EDT edical, ) OFFICE OUTPATIENT VISIT 11/06/2019 MEDG EN ([facility] 25 MINUTES 12:00:00 AM EDT Medical, PC) OFFICE OUTPATIENT NEW 20 11/06/2019 MED GEN ([facility] MINUTES 12:00:00 AM EDT Medical, PC) DEBRIDEMENT NAIL ANY 11/06/2019 MEDGEN ([facility] METHOD 6/> 12:00:00 AM EDT Medical, ) Documentation of current 11/06/2019 MED GEN ([facility]ica[facility] medications (procedure) 12:00:00 AM EDT edical, ) Documentation of current 11/06/2019 MED GEN ([facility] medications (procedure) 12:00:00 AM EDT [facility], PC) Documentation of current 11/06/2019 MED GEN ([facility] medications (procedure) 12:00:00 AM EDT [facility], PC) Documentation of current 11/06/2019 MED GEN ([facility] medications (procedure) 12:00:00 AM EDT [facility]) Documentation of current 11/06/2019 MED GEN ([facility] medications (procedure) 12:00:00 AM EDT [facility]) Documentation of current 11/06/2019 MED GEN ([facility] medications (procedure) 12:00:00 AM EDT [facility]) Documentation of current 11/06/2019 MED GEN ([facility] medications (procedure) 12:00:00 AM EDT [facility], PC) Documentation of current 11/06/2019 MED GEN ([facility] medications (procedure) 12:00:00 AM EDT [facility]) Documentation of current 11/06/2019 MED GEN ([facility] medications (procedure) 12:00:00 AM EDT [facility], PC) Documentation of current 11/06/2019 MED GEN ([facility] medications (procedure) 12:00:00 AM EDT natalie, ) OFFICE OUTPATIENT VISIT 11/06/2019 MEDG EN ([facility] 25 MINUTES 12:00:00 AM EDT Medical, PC) OFFICE OUTPATIENT NEW 20 11/06/2019 MED GEN ([facility] MINUTES 12:00:00 AM ED Medical, PC) DEBRIDEMENT NAIL ANY 11/06/2019 MEDGEN ([facility] METHOD 6/> 12:00:00 AM EDT Medical, PC) Documentation of current 11/06/2019 MED GEN ([facility] medications (procedure) 12:00:00 AM EDT natal[facility], PC) Documentation of current 11/06/2019 MED GEN ([facility] medications (procedure) 12:00:00 AM EDT [facility], PC) Documentation of current 11/06/2019 MED GEN ([facility] medications (procedure) 12:00:00 AM EDT [facility]) Documentation of current 11/06/2019 MED GEN ([facility] medications (procedure) 12:00:00 AM EDT [facility]) Documentation of current 11/06/2019 MED GEN ([facility] medications (procedure) 12:00:00 AM EDT edical, ) Documentation of current 11/06/2019 MED GEN ([facility] medications (procedure) 12:00:00 AM EDT edical, PC) Documentation of current 11/06/2019 MED GEN ([facility] medications (procedure) 12:00:00 AM EDT edical, PC) Documentation of current 11/06/2019 MED GEN ([facility] medications (procedure) 12:00:00 AM EDT [facility]) Documentation of current 11/06/2019 MED GEN ([facility] medications (procedure) 12:00:00 AM EDT [facility]) Documentation of current 11/06/2019 MED GEN ([facility] medications (procedure) 12:00:00 AM EDT [facility]) OFFICE OUTPATIENT VISIT 11/06/2019 MEDG EN ([facility] 25 MINUTES 12:00:00 AM EDT Medical, ) OFFICE OUTPATIENT NEW 20 11/06/2019 MED GEN ([facility] MINUTES 12:00:00 AM EDT Medical, ) DEBRIDEMENT NAIL ANY 11/06/2019 MEDGEN ([facility] METHOD 6/> 12:00:00 AM EDT Medical, PC) Documentation of current 11/06/2019 MED GEN ([facility] medications (procedure) 12:00:00 AM EDT natalie, PC) Documentation of current 11/06/2019 MED GEN ([facility] medications (procedure) 12:00:00 AM EDT natalie, PC) Documentation of current 11/06/2019 MED GEN ([facility] medications (procedure) 12:00:00 AM EDT [facility]) Documentation of current 11/06/2019 MED GEN ([facility] medications (procedure) 12:00:00 AM EDT edical, PC) Documentation of current 11/06/2019 MED GEN ([facility] medications (procedure) 12:00:00 AM EDT edical, PC) Documentation of current 11/06/2019 MED GEN ([facility] medications (procedure) 12:00:00 AM EDT edical, PC) Documentation of current 11/06/2019 MED GEN ([facility] medications (procedure) 12:00:00 AM EDT edical, ) Documentation of current 11/06/2019 MED GEN ([facility] medications (procedure) 12:00:00 AM EDT edical, PC) Documentation of current 11/06/2019 MED GEN ([facility] medications (procedure) 12:00:00 AM EDT edical, ) OFFICE OUTPATIENT VISIT 11/06/2019 MEDG EN ([facility] 25 MINUTES 12:00:00 AM EDT Medical, ) OFFICE OUTPATIENT NEW 20 11/06/2019 MED GEN ([facility] MINUTES 12:00:00 AM EDT Medical, ) DEBRIDEMENT NAIL ANY 11/06/2019 MEDGEN ([facility] METHOD 6/> 12:00:00 AM EDT Medical, ) Documentation of current 11/06/2019 MED GEN ([facility]ica[facility] medications (procedure) 12:00:00 AM EDT [facility], ) Documentation of current 11/06/2019 MED GEN ([facility] medications (procedure) 12:00:00 AM EDT [facility]) Documentation of current 11/06/2019 MED GEN ([facility]ica[facility] medications (procedure) 12:00:00 AM EDT edical, ) Documentation of current 11/06/2019 MED GEN (Jses[facility]'s medications (procedure) 12:00:00 AM EDT edical, PC) Documentation of current 11/06/2019 MED GEN ([facility] medications (procedure) 12:00:00 AM EDT edical, PC) Documentation of current 11/06/2019 MED GEN ([facility] medications (procedure) 12:00:00 AM EDT edical, PC) Documentation of current 11/06/2019 MED GEN ([facility] medications (procedure) 12:00:00 AM EDT edical, PC) Documentation of current 11/06/2019 MED GEN ([facility] medications (procedure) 12:00:00 AM EDT edical, PC) Documentation of current 11/06/2019 MED GEN ([facility] medications (procedure) 12:00:00 AM EDT edical, ) OFFICE OUTPATIENT VISIT 11/06/2019 MEDG EN ([facility] 25 MINUTES 12:00:00 AM EDT Medical, ) OFFICE OUTPATIENT NEW 20 11/06/2019 MED GEN ([facility]ica's MINUTES 12:00:00 AM EDT Medical, ) DEBRIDEMENT NAIL ANY 11/06/2019 MEDGEN ([facility] METHOD 6/> 12:00:00 AM T [facility], ) Documentation of current 11/06/2019 MED GEN (Jessica[facility] medications (procedure) 12:00:00 [facility] Documentation of current 11/06/2019 MED GEN (Jessica's medications (procedure) 12:00:00 AM EDT [facility], ) Documentation of current 11/06/2019 MED GEN (Jessica's medications (procedure) 12:00:00 AM EDT [facility], ) Documentation of current 11/06/2019 MED GEN (Jessica's medications (procedure) 12:00:00 AM EDT [facility], ) Documentation of current 11/06/2019 MED GEN (Jessica's medications (procedure) 12:00:00 AM EDT edical, ) Documentation of current 11/06/2019 MED GEN (Jessica's medications (procedure) 12:00:00 AM EDT [facility], ) Documentation of current 11/06/2019 MED GEN (Jessica's medications (procedure) 12:00:00 AM EDT edical, ) Documentation of current 11/06/2019 MED GEN (Jessica[facility] medications (procedure) 12:00:00 AM ED[facility], ) Documentation of current 11/06/2019 MED GEN (Jessica's medications (procedure) 12:00:00 AM EDT edical, ) Documentation of current 11/06/2019 MED GEN (Jessica's medications (procedure) 12:00:00 AM [facility], ) Documentation of current 11/06/2019 MED GEN (Jessica's medications (procedure) 12:00:00 AM EDT edical, ) OFFICE OUTPATIENT VISIT 11/06/2019 MEDG EN ([facility] 25 MINUTES 12:00:00 AM EDT Medical, ) OFFICE OUTPATIENT NEW 20 11/06/2019 MED GEN ([facility]ica's MINUTES 12:00:00 AM EDT Medical, PC) DEBRIDEMENT NAIL ANY 11/06/2019 MEDGEN ([facility]ica[facility] METHOD 6/> 12:00:00 AM EDT [facility], ) Documentation of current 11/06/2019 MED GEN (Jessica's medications (procedure) 12:00:00 AM EDT [facility]) Documentation of current 11/06/2019 MED GEN (Jessica's medications (procedure) 12:00:00 AM EDT [facility], [facility]) Documentation of current 11/06/2019 MED GEN ([facility]ica[facility] medications (procedure) 12:00:00 AM EDT [facility], [facility]) Documentation of current 11/06/2019 MED GEN (Jessica's medications (procedure) 12:00:00 AM EDT [facility], [facility]) Documentation of current 11/06/2019 MED GEN (Jesscia[facility] medications (procedure) 12:00:00 AM EDT [facility], [facility]) OFFICE OUTPATIENT VISIT 11/06/2019 MEDG EN ([facility] 25 MINUTES 12:00:00 AM EDT Medical, ) OFFICE OUTPATIENT NEW 20 11/06/2019 MED GEN [facility] ANY 11/06/2019 MEDGEN [facility] of current 11/06/2019 MED GEN (Jessica's medications (procedure) 12:00:00 AM EDT natalie, ) OFFICE OUTPATIENT VISIT 11/06/2019 MEDG EN ([facility]ica's 25 MINUTES 12:00:00 AM [facility] Medical, ) Documentation of current 10/16/2019 MED GEN (Jessica's medications (procedure) 12:00:00 AM EDT natalie, PC) Documentation of current 10/16/2019 MED GEN (Jessica's medications (procedure) 12:00:00 AM EDT natalie, PC) Documentation of current 10/16/2019 MED GEN (Jessica's medications (procedure) 12:00:00 AM EDT [facility], [facility]) Documentation of current 10/16/2019 MED GEN (Jessica's medications (procedure) 12:00:00 AM EDT [facility], [facility]) Documentation of current 10/16/2019 MED GEN (Jessica's medications (procedure) 12:00:00 AM EDT [facility], [facility]) Documentation of current 10/16/2019 MED GEN (Jessica's medications (procedure) 12:00:00 AM EDT natalie, PC) Documentation of current 10/16/2019 MED GEN ([facility]ica[facility] medications (procedure) 12:00:00 AM EDT natalie, PC) Documentation of current 10/16/2019 MED GEN (Jessica's medications (procedure) 12:00:00 AM EDT natalie, PC) Documentation of current 10/16/2019 MED GEN (Jessica's medications (procedure) 12:00:00 AM EDT natalie, PC) Documentation of current 10/16/2019 MED GEN (Jessica's medications (procedure) 12:00:00 AM EDT natalie, PC) COLLECTION VENOUS BLOOD 10/16/2019 MEDG EN ([facility]'s VENIPUNCTURE 12:00:00 AM [facility], PC) Documentation of current 10/16/2019 MED GEN (Jessica's medications (procedure) 12:00:00 AM EDT natalie, PC) Documentation of current 10/16/2019 MED GEN (Jessica's medications (procedure) 12:00:00 AM EDT natalie PC) Documentation of current 10/16/2019 MED GEN (Jessica's medications (procedure) 12:00:00 AM EDT natalie, PC) Documentation of current 10/16/2019 MED GEN (Jessica[facility] medications (procedure) 12:00:00 AM EDT natalie, PC) Documentation of current 10/16/2019 MED GEN ([facility] medications (procedure) 12:00:00 AM EDT natalie, PC) Documentation of current 10/16/2019 MED GEN ([facility]ica[facility] medications (procedure) 12:00:00 AM EDT natalie, PC) Documentation of current 10/16/2019 MED GEN (Jessica[facility] medications (procedure) 12:00:00 AM EDT natalie, PC) Documentation of current 10/16/2019 MED GEN (Jessica[facility] medications (procedure) 12:00:00 AM EDT natalie, PC) Documentation of current 10/16/2019 MED GEN (Jessica's medications (procedure) 12:00:00 AM EDT natalie, PC) Documentation of current 10/16/2019 MED GEN (Jessica's medications (procedure) 12:00:00 AM EDT natalie, PC) COLLECTION VENOUS BLOOD 10/16/2019 MEDG EN ([facility]'s VENIPUNCTURE 12:00:00 AM [facility], ) Documentation of current 10/16/2019 MED GEN (Jessica's medications (procedure) 12:00:00 AM EDT natalie, PC) Documentation of current 10/16/2019 MED GEN (Jessica's medications (procedure) 12:00:00 AM EDT natalie, PC) Documentation of current 10/16/2019 MED GEN (Jessica's medications (procedure) 12:00:00 AM EDT natalie, PC) Documentation of current 10/16/2019 MED GEN ([facility]ica's medications (procedure) 12:00:00 AM EDT natalie, PC) Documentation of current 10/16/2019 MED GEN (Jessica's medications (procedure) 12:00:00 AM EDT natalie, PC) Documentation of current 10/16/2019 MED GEN (Jessica's medications (procedure) 12:00:00 AM EDT natalie, PC) Documentation of current 10/16/2019 MED GEN ([facility]ica's medications (procedure) 12:00:00 AM EDT natalie, PC) Documentation of current 10/16/2019 MED GEN (Jessica's medications (procedure) 12:00:00 AM EDT natalie, PC) Documentation of current 10/16/2019 MED GEN (Jessica's medications (procedure) 12:00:00 AM EDT natalie, PC) Documentation of current 10/16/2019 MED GEN (Jessica's medications (procedure) 12:00:00 AM EDT natalie, PC) COLLECTION VENOUS BLOOD 10/16/2019 MEDG EN ([facility]'s VENIPUNCTURE 12:00:00 AM [facility], PC) Documentation of current 10/16/2019 MED GEN (Jessica's medications (procedure) 12:00:00 AM EDT natalie, PC) Documentation of current 10/16/2019 MED GEN (Jessica's medications (procedure) 12:00:00 AM EDT natalie, PC) Documentation of current 10/16/2019 MED GEN (Jessica's medications (procedure) 12:00:00 AM EDT [facility], [facility]) Documentation of current 10/16/2019 MED GEN (Jessica's medications (procedure) 12:00:00 AM EDT natalie, PC) Documentation of current 10/16/2019 MED GEN (Jessica's medications (procedure) 12:00:00 AM EDT natalie, PC) Documentation of current 10/16/2019 MED GEN (Jessica's medications (procedure) 12:00:00 AM EDT natalie, PC) Documentation of current 10/16/2019 MED GEN (Jessica's medications (procedure) 12:00:00 AM EDT natalie, PC) Documentation of current 10/16/2019 MED GEN (Jessica's medications (procedure) 12:00:00 AM EDT natalie, PC) Documentation of current 10/16/2019 MED GEN ([facility]ica's medications (procedure) 12:00:00 AM EDT natalie, PC) Documentation of current 10/16/2019 MED GEN (Jessica's medications (procedure) 12:00:00 AM EDT [facility]ada) COLLECTION VENOUS BLOOD 10/16/2019 MEDG EN ([facility]'s VENIPUNCTURE 12:00:00 AM [facility] Ojeda) Documentation of current 10/16/2019 MED GEN (Jessica's medications (procedure) 12:00:00 AM EDT [facility] estrada) Documentation of current 10/16/2019 MED GEN (Jessica's medications (procedure) 12:00:00 AM EDT natalie PC) Documentation of current 10/16/2019 MED GEN (Jessica's medications (procedure) 12:00:00 AM EDT [facility] PC) Documentation of current 10/16/2019 MED GEN (Jessica's medications (procedure) 12:00:00 AM EDT natalie, PC) Documentation of current 10/16/2019 MED GEN ([facility] medications (procedure) 12:00:00 AM EDT natalie, PC) Documentation of current 10/16/2019 MED GEN ([facility]ica's medications (procedure) 12:00:00 AM EDT [facility], [facility]) Documentation of current 10/16/2019 MED GEN (Jessica's medications (procedure) 12:00:00 AM EDT natalie, PC) Documentation of current 10/16/2019 MED GEN (Jessica[facility] medications (procedure) 12:00:00 AM EDT natalie, PC) Documentation of current 10/16/2019 MED GEN ([facility] medications (procedure) 12:00:00 AM EDT natalie, PC) Documentation of current 10/16/2019 MED GEN ([facility]ica's medications (procedure) 12:00:00 AM EDT natalie, PC) COLLECTION VENOUS BLOOD 10/16/2019 MEDG EN ([facility]'s VENIPUNCTURE 12:00:00 AM T Medical, ) Documentation of current 10/16/2019 MED GEN (Jessica's medications (procedure) 12:00:00 AM EDT natalie, PC) Documentation of current 10/16/2019 MED GEN (Jessica's medications (procedure) 12:00:00 AM EDT natalie, PC) Documentation of current 10/16/2019 MED GEN ([facility]ica's medications (procedure) 12:00:00 AM EDT natalie, PC) Documentation of current 10/16/2019 MED GEN ([facility]ica[facility] medications (procedure) 12:00:00 AM EDT natalie, PC) Documentation of current 10/16/2019 MED GEN ([facility] medications (procedure) 12:00:00 AM EDT natalie, PC) Documentation of current 10/16/2019 MED GEN ([facility] medications (procedure) 12:00:00 AM EDT natalie, PC) Documentation of current 10/16/2019 MED GEN ([facility] medications (procedure) 12:00:00 AM EDT natalie, PC) Documentation of current 10/16/2019 MED GEN ([facility] medications (procedure) 12:00:00 AM EDT natalie, PC) Documentation of current 10/16/2019 MED GEN ([facility]ica's medications (procedure) 12:00:00 AM EDT natalie, PC) Documentation of current 10/16/2019 MED GEN ([facility]ica's medications (procedure) 12:00:00 AM EDT natalie, PC) COLLECTION VENOUS BLOOD 10/16/2019 MEDG EN ([facility]'s VENIPUNCTURE 12:00:00 AM T [facility], PC) Documentation of current 10/16/2019 MED GEN (Jessica's medications (procedure) 12:00:00 AM EDT natalie, PC) Documentation of current 10/16/2019 MED GEN (Jessica's medications (procedure) 12:00:00 AM EDT natalie, PC) Documentation of current 10/16/2019 MED GEN (Jessica's medications (procedure) 12:00:00 AM EDT natalie, PC) Documentation of current 10/16/2019 MED GEN ([facility]ica's medications (procedure) 12:00:00 AM EDT natalie, PC) Documentation of current 10/16/2019 MED GEN (Jessica's medications (procedure) 12:00:00 AM EDT natalie, PC) Documentation of current 10/16/2019 MED GEN (Jessica's medications (procedure) 12:00:00 AM EDT natalie, PC) Documentation of current 10/16/2019 MED GEN ([facility] medications (procedure) 12:00:00 AM EDT natalie, PC) Documentation of current 10/16/2019 MED GEN ([facility]ica's medications (procedure) 12:00:00 AM EDT natalie, PC) Documentation of current 10/16/2019 MED GEN (Jessica's medications (procedure) 12:00:00 AM EDT natalie, PC) Documentation of current 10/16/2019 MED GEN (Jessica's medications (procedure) 12:00:00 AM EDT natalie, PC) COLLECTION VENOUS BLOOD 10/16/2019 MEDG EN ([facility]ica's VENIPUNCTURE 12:00:00 AM [facility]) Documentation of current 10/16/2019 MED GEN (Jessiac's medications (procedure) 12:00:00 AM EDT natalie PC) Documentation of current 10/16/2019 MED GEN (Jessica's medications (procedure) 12:00:00 AM EDT natalie, PC) Documentation of current 10/16/2019 MED GEN (Jessica's medications (procedure) 12:00:00 AM EDT natalie, PC) Documentation of current 10/16/2019 MED GEN (Jessica's medications (procedure) 12:00:00 AM EDT natalie, PC) Documentation of current 10/16/2019 MED GEN ([facility]ica's medications (procedure) 12:00:00 AM EDT Lewis estrada, [facility]) Documentation of current 10/16/2019 MED GEN (Jessica's medications (procedure) 12:00:00 AM EDT [facility]) Documentation of current 10/16/2019 MED GEN (Jessica's medications (procedure) 12:00:00 AM EDT natalie, PC) Documentation of current 10/16/2019 MED GEN (Jessica's medications (procedure) 12:00:00 AM EDT [facility], PC) Documentation of current 10/16/2019 MED GEN (Jessica's medications (procedure) 12:00:00 AM EDT natalie, PC) Documentation of current 10/16/2019 MED GEN (Jessica's medications (procedure) 12:00:00 AM EDT natalie, PC) Documentation of current 10/16/2019 MED GEN (Jessica's medications (procedure) 12:00:00 AM EDT natalie, PC) Documentation of current 10/16/2019 MED GEN (Jessica's medications (procedure) 12:00:00 AM EDT natalie, PC) Documentation of current 10/16/2019 MED GEN (Jessica's medications (procedure) 12:00:00 AM EDT natalie, PC) Documentation of current 10/16/2019 MED GEN (Jessica's medications (procedure) 12:00:00 AM EDT natalie PC) Documentation of current 10/16/2019 MED GEN (Jessica's medications (procedure) 12:00:00 AM EDT natalie, PC) Documentation of current 10/16/2019 MED GEN (Jessica's medications (procedure) 12:00:00 AM EDT [facility] estrada) Documentation of current 10/16/2019 MED GEN (Jessica's medications (procedure) 12:00:00 AM EDT natalie, PC) Documentation of current 10/16/2019 MED GEN (Jessica's medications (procedure) 12:00:00 AM EDT natalie PC) Documentation of current 10/16/2019 MED GEN (Jessica's medications (procedure) 12:00:00 AM EDT natalie, PC) Documentation of current 10/16/2019 MED GEN (Jessica's medications (procedure) 12:00:00 AM EDT M natalie, ) TOBACCO USE CESSATION 10/16/2019 MEDGEN ([facility] INTERMEDIATE 3-10 MINUTES 12:00:00 AM [facility], ) COLLECTION VENOUS BLOOD 10/16/2019 MEDG EN (Jessica's VENIPUNCTURE 12:00:00 AM [facility], ) Documentation of current 10/16/2019 MED GEN (Jessica's medications (procedure) 12:00:00 AM EDT natalie, PC) Documentation of current 10/16/2019 MED GEN (Jessica's medications (procedure) 12:00:00 AM EDT natalie, PC) Documentation of current 10/16/2019 MED GEN ([facility] medications (procedure) 12:00:00 AM [facility]) Documentation of current 10/16/2019 MED GEN ([facility] medications (procedure) 12:00:00 AM [facility]) Documentation of current 10/16/2019 MED GEN ([facility] medications (procedure) 12:00:00 AM [facility]) Documentation of current 10/16/2019 MED GEN ([facility] medications (procedure) 12:00:00 AM [facility]) Documentation of current 10/16/2019 MED GEN ([facility] medications (procedure) 12:00:00 AM [facility]) Documentation of current 10/16/2019 MED GEN ([facility] medications (procedure) 12:00:00 AM [facility]) Documentation of current 10/16/2019 MED GEN ([facility] (procedure) 12:00:00 AM [facility]) Documentation of current 10/16/2019 MED GEN ([facility] (procedure) 12:00:00 AM [facility]) TOBACCO USE CESSATION 10/16/2019 MEDGEN ([facility] INTERMEDIATE 3-10 MINUTES 12:00:00 AM [facility], ) COLLECTION VENOUS BLOOD 10/16/2019 MEDG EN ([facility] VENIPUNCTURE 12:00:00 AM [facility], ) Documentation of current 10/16/2019 MED GEN ([facility] medications (procedure) 12:00:00 AM [facility]) Documentation of current 10/16/2019 MED GEN ([facility] medications (procedure) 12:00:00 AM [facility]) Documentation of current 10/16/2019 MED GEN ([facility] medications (procedure) 12:00:00 AM [facility]) Documentation of current 10/16/2019 MED GEN ([facility] medications (procedure) 12:00:00 AM [facility]) Documentation of current 10/16/2019 MED GEN ([facility] medications (procedure) 12:00:00 AM [facility]) Documentation of current 10/16/2019 MED GEN ([facility] medications (procedure) 12:00:00 AM [facility]) Documentation of current 10/16/2019 MED GEN ([facility] (procedure) 12:00:00 AM [facility]) Documentation of current 10/16/2019 MED GEN ([facility] medications (procedure) 12:00:00 AM [facility]) Documentation of current 10/16/2019 MED GEN ([facility] (procedure) 12:00:00 AM [facility]) TOBACCO USE CESSATION 10/16/2019 MEDGEN ([facility] INTERMEDIATE 3-10 MINUTES 12:00:00 AM [facility], ) COLLECTION VENOUS BLOOD 10/16/2019 MEDG EN ([facility] VENIPUNCTURE 12:00:00 AM [facility], ) Documentation of current 10/16/2019 MED GEN ([facility] medications (procedure) 12:00:00 AM [facility]) Documentation of current 10/16/2019 MED GEN ([facility] medications (procedure) 12:00:00 AM [facility]) Documentation of current 10/16/2019 MED GEN ([facility] medications (procedure) 12:00:00 AM [facility]) Documentation of current 10/16/2019 MED GEN ([facility] medications (procedure) 12:00:00 AM [facility]) Documentation of current 10/16/2019 MED GEN ([facility] medications (procedure) 12:00:00 AM [facility]) Documentation of current 10/16/2019 MED GEN ([facility] medications (procedure) 12:00:00 AM [facility], ) TOBACCO USE CESSATION 10/16/2019 MEDGEN ([facility] INTERMEDIATE 3-10 MINUTES 12:00:00 AM [facility], ) COLLECTION VENOUS BLOOD 10/16/2019 MEDG EN ([facility] VENIPUNCTURE 12:00:00 AM [facility], ) Documentation of current 10/07/2019 MED GEN ([facility] medications (procedure) 12:00:00 AM [facility], ) Documentation of current 10/07/2019 MED GEN ([facility] medications (procedure) 12:00:00 AM [facility]) Documentation of current 10/07/2019 MED GEN ([facility] medications (procedure) 12:00:00 AM [facility]) Documentation of current 10/07/2019 MED GEN ([facility] medications (procedure) 12:00:00 AM [facility]) Documentation of current 10/07/2019 MED GEN ([facility] medications (procedure) 12:00:00 AM [facility]) Documentation of current 10/07/2019 MED GEN ([facility] medications (procedure) 12:00:00 AM [facility]) Documentation of current 10/07/2019 MED GEN ([facility] medications (procedure) 12:00:00 AM [facility]) Documentation of current 10/07/2019 MED GEN ([facility] medications (procedure) 12:00:00 AM [facility]) Documentation of current 10/07/2019 MED GEN ([facility] medications (procedure) 12:00:00 AM [facility]) Documentation of current 10/07/2019 MED GEN ([facility] medications (procedure) 12:00:00 AM [facility]) Documentation of current 10/07/2019 MED GEN ([facility] medications (procedure) 12:00:00 AM [facility]) Documentation of current 10/07/2019 MED GEN ([facility] medications (procedure) 12:00:00 AM [facility]) Documentation of current 10/07/2019 MED GEN ([facility] medications (procedure) 12:00:00 AM [facility], ) Documentation of current 10/07/2019 MED GEN ([facility] medications (procedure) 12:00:00 AM [facility]) Documentation of current 10/07/2019 MED GEN ([facility] medications (procedure) 12:00:00 AM [facility]) Documentation of current 10/07/2019 MED GEN ([facility] medications (procedure) 12:00:00 AM [facility]) Documentation of current 10/07/2019 MED GEN ([facility] medications (procedure) 12:00:00 AM [facility]) Documentation of current 10/07/2019 MED GEN ([facility] medications (procedure) 12:00:00 AM [facility]) OFFICE OUTPATIENT VISIT 10/07/2019 MEDG EN ([facility] 25 MINUTES 12:00:00 AM [facility], ) COLLECTION VENOUS BLOOD 10/07/2019 MEDG EN ([facility] VENIPUNCTURE 12:00:00 AM [facility], ) Documentation of current 10/07/2019 MED GEN ([facility] medications (procedure) 12:00:00 AM [facility]) Documentation of current 10/07/2019 MED GEN ([facility] medications (procedure) 12:00:00 AM [facility]) Documentation of current 10/07/2019 MED GEN ([facility] medications (procedure) 12:00:00 AM [facility]) Documentation of current 10/07/2019 MED GEN ([facility] medications (procedure) 12:00:00 AM [facility]) Documentation of current 10/07/2019 MED GEN ([facility] medications (procedure) 12:00:00 AM [facility]) Documentation of current 10/07/2019 MED GEN ([facility] medications (procedure) 12:00:00 AM [facility]) Documentation of current 10/07/2019 MED GEN ([facility] medications (procedure) 12:00:00 AM [facility]) Documentation of current 10/07/2019 MED GEN ([facility] medications (procedure) 12:00:00 AM [facility]) Documentation of current 10/07/2019 MED GEN ([facility] medications (procedure) 12:00:00 AM [facility]) Documentation of current 10/07/2019 MED GEN ([facility] medications (procedure) 12:00:00 AM [facility]) Documentation of current 10/07/2019 MED GEN ([facility] medications (procedure) 12:00:00 AM [facility]) Documentation of current 10/07/2019 MED GEN ([facility] medications (procedure) 12:00:00 AM [facility]) Documentation of current 10/07/2019 MED GEN ([facility] medications (procedure) 12:00:00 AM [facility]) Documentation of current 10/07/2019 MED GEN ([facility] (procedure) 12:00:00 AM [facility]) Documentation of current 10/07/2019 MED GEN ([facility] medications (procedure) 12:00:00 AM [facility]) Documentation of current 10/07/2019 MED GEN ([facility] medications (procedure) 12:00:00 AM [facility]) Documentation of current 10/07/2019 MED GEN ([facility] medications (procedure) 12:00:00 AM [facility]) Documentation of current 10/07/2019 MED GEN ([facility] medications (procedure) 12:00:00 AM [facility]) OFFICE OUTPATIENT VISIT 10/07/2019 MEDG EN ([facility] 25 MINUTES 12:00:00 AM [facility]) COLLECTION VENOUS BLOOD 10/07/2019 MEDG EN ([facility] VENIPUNCTURE 12:00:00 AM [facility], [facility]) Documentation of current 10/07/2019 MED GEN ([facility] medications (procedure) 12:00:00 AM [facility]) Documentation of current 10/07/2019 MED GEN ([facility] medications (procedure) 12:00:00 AM [facility]) Documentation of current 10/07/2019 MED GEN ([facility] medications (procedure) 12:00:00 AM [facility]) Documentation of current 10/07/2019 MED GEN ([facility] medications (procedure) 12:00:00 AM [facility]) Documentation of current 10/07/2019 MED GEN ([facility] medications (procedure) 12:00:00 AM [facility]) Documentation of current 10/07/2019 MED GEN ([facility] medications (procedure) 12:00:00 AM [facility]) Documentation of current 10/07/2019 MED GEN ([facility] medications (procedure) 12:00:00 AM [facility]) Documentation of current 10/07/2019 MED GEN ([facility] medications (procedure) 12:00:00 AM [facility]) Documentation of current 10/07/2019 MED GEN ([facility] medications (procedure) 12:00:00 AM [facility]) Documentation of current 10/07/2019 MED GEN ([facility] medications (procedure) 12:00:00 AM [facility]) Documentation of current 10/07/2019 MED GEN ([facility] medications (procedure) 12:00:00 AM [facility]) Documentation of current 10/07/2019 MED GEN ([facility] medications (procedure) 12:00:00 AM [facility]) Documentation of current 10/07/2019 MED GEN ([facility] medications (procedure) 12:00:00 AM [facility]) Documentation of current 10/07/2019 MED GEN ([facility] medications (procedure) 12:00:00 AM [facility]) Documentation of current 10/07/2019 MED GEN ([facility] medications (procedure) 12:00:00 AM [facility]) Documentation of current 10/07/2019 MED GEN ([facility] medications (procedure) 12:00:00 AM [facility]) Documentation of current 10/07/2019 MED GEN ([facility] medications (procedure) 12:00:00 AM [facility]) Documentation of current 10/07/2019 MED GEN ([facility] medications (procedure) 12:00:00 AM [facility]) OFFICE OUTPATIENT VISIT 10/07/2019 MEDG EN ([facility] 25 MINUTES 12:00:00 AM [facility], ) COLLECTION VENOUS BLOOD 10/07/2019 MEDG EN ([facility] VENIPUNCTURE 12:00:00 AM [facility], ) Documentation of current 10/07/2019 MED GEN ([facility] medications (procedure) 12:00:00 AM [facility]) Documentation of current 10/07/2019 MED GEN ([facility] medications (procedure) 12:00:00 AM [facility]) Documentation of current 10/07/2019 MED GEN ([facility] medications (procedure) 12:00:00 AM [facility]) Documentation of current 10/07/2019 MED GEN ([facility] medications (procedure) 12:00:00 AM [facility]) Documentation of current 10/07/2019 MED GEN ([facility] medications (procedure) 12:00:00 AM [facility]) Documentation of current 10/07/2019 MED GEN ([facility] medications (procedure) 12:00:00 AM [facility]) Documentation of current 10/07/2019 MED GEN ([facility] medications (procedure) 12:00:00 AM [facility]) Documentation of current 10/07/2019 MED GEN ([facility] medications (procedure) 12:00:00 AM [facility]) Documentation of current 10/07/2019 MED GEN ([facility] medications (procedure) 12:00:00 AM [facility]) Documentation of current 10/07/2019 MED GEN ([facility] medications (procedure) 12:00:00 AM [facility]) Documentation of current 10/07/2019 MED GEN ([facility] medications (procedure) 12:00:00 AM [facility]) Documentation of current 10/07/2019 MED GEN ([facility] medications (procedure) 12:00:00 AM [facility]) Documentation of current 10/07/2019 MED GEN ([facility] medications (procedure) 12:00:00 AM [facility]) Documentation of current 10/07/2019 MED GEN ([facility] medications (procedure) 12:00:00 AM [facility]) Documentation of current 10/07/2019 MED GEN ([facility] medications (procedure) 12:00:00 AM [facility]) Documentation of current 10/07/2019 MED GEN ([facility] medications (procedure) 12:00:00 AM [facility]) Documentation of current 10/07/2019 MED GEN ([facility] medications (procedure) 12:00:00 AM [facility]) Documentation of current 10/07/2019 MED GEN ([facility] medications (procedure) 12:00:00 AM [facility], ) OFFICE OUTPATIENT VISIT 10/07/2019 MEDG EN ([facility] 25 MINUTES 12:00:00 AM [facility], ) COLLECTION VENOUS BLOOD 10/07/2019 MEDG EN ([facility] VENIPUNCTURE 12:00:00 AM [facility], ) Documentation of current 10/07/2019 MED GEN ([facility] medications (procedure) 12:00:00 AM [facility]) Documentation of current 10/07/2019 MED GEN ([facility] medications (procedure) 12:00:00 AM [facility]) Documentation of current 10/07/2019 MED GEN ([facility] medications (procedure) 12:00:00 AM [facility]) Documentation of current 10/07/2019 MED GEN ([facility] medications (procedure) 12:00:00 AM [facility]) Documentation of current 10/07/2019 MED GEN ([facility] medications (procedure) 12:00:00 AM [facility]) Documentation of current 10/07/2019 MED GEN ([facility] medications (procedure) 12:00:00 AM [facility]) Documentation of current 10/07/2019 MED GEN ([facility] medications (procedure) 12:00:00 AM [facility]) Documentation of current 10/07/2019 MED GEN ([facility] medications (procedure) 12:00:00 AM [facility]) Documentation of current 10/07/2019 MED GEN ([facility] medications (procedure) 12:00:00 AM [facility]) Documentation of current 10/07/2019 MED GEN ([facility] medications (procedure) 12:00:00 AM [facility]) Documentation of current 10/07/2019 MED GEN ([facility] medications (procedure) 12:00:00 AM [facility]) Documentation of current 10/07/2019 MED GEN ([facility] medications (procedure) 12:00:00 AM [facility]) Documentation of current 10/07/2019 MED GEN ([facility] medications (procedure) 12:00:00 AM [facility]) Documentation of current 10/07/2019 MED GEN ([facility] medications (procedure) 12:00:00 AM [facility]) Documentation of current 10/07/2019 MED GEN ([facility] medications (procedure) 12:00:00 AM [facility]) Documentation of current 10/07/2019 MED GEN ([facility] medications (procedure) 12:00:00 AM EDT [facility]) Documentation of current 10/07/2019 MED GEN ([facility] medications (procedure) 12:00:00 AM EDT [facility] ) OFFICE OUTPATIENT VISIT 10/07/2019 MEDG EN ([facility] 25 MINUTES 12:00:00 AM [facility], ) COLLECTION VENOUS BLOOD 10/07/2019 MEDG EN ([facility] VENIPUNCTURE 12:00:00 AM [facility], ) Documentation of current 10/07/2019 MED GEN ([facility] medications (procedure) 12:00:00 AM [facility]) Documentation of current 10/07/2019 MED GEN ([facility] medications (procedure) 12:00:00 AM [facility]) Documentation of current 10/07/2019 MED GEN ([facility] medications (procedure) 12:00:00 AM [facility]) Documentation of current 10/07/2019 MED GEN ([facility] medications (procedure) 12:00:00 AM [facility]) Documentation of current 10/07/2019 MED GEN ([facility] medications (procedure) 12:00:00 AM [facility]) Documentation of current 10/07/2019 MED GEN ([facility] medications (procedure) 12:00:00 AM [facility]) Documentation of current 10/07/2019 MED GEN ([facility] medications (procedure) 12:00:00 AM [facility]) Documentation of current 10/07/2019 MED GEN ([facility] medications (procedure) 12:00:00 AM [facility]) Documentation of current 10/07/2019 MED GEN ([facility] medications (procedure) 12:00:00 AM [facility], ) Documentation of current 10/07/2019 MED GEN ([facility] medications (procedure) 12:00:00 AM [facility], [facility]) Documentation of current 10/07/2019 MED GEN ([facility] medications (procedure) 12:00:00 AM [facility]) Documentation of current 10/07/2019 MED GEN ([facility] medications (procedure) 12:00:00 AM [facility]) Documentation of current 10/07/2019 MED GEN ([facility] medications (procedure) 12:00:00 AM [facility]) Documentation of current 10/07/2019 MED GEN ([facility] medications (procedure) 12:00:00 AM [facility]) Documentation of current 10/07/2019 MED GEN ([facility] medications (procedure) 12:00:00 AM [facility]) Documentation of current 10/07/2019 MED GEN ([facility] medications (procedure) 12:00:00 AM [facility]) Documentation of current 10/07/2019 MED GEN ([facility] medications (procedure) 12:00:00 AM [facility]) OFFICE OUTPATIENT VISIT 10/07/2019 MEDG EN ([facility] 25 MINUTES 12:00:00 AM [facility], ) COLLECTION VENOUS BLOOD 10/07/2019 MEDG EN ([facility] VENIPUNCTURE 12:00:00 AM [facility], ) Documentation of current 10/07/2019 MED GEN ([facility] medications (procedure) 12:00:00 AM [facility]) Documentation of current 10/07/2019 MED GEN ([facility] medications (procedure) 12:00:00 AM [facility]) Documentation of current 10/07/2019 MED GEN ([facility] medications (procedure) 12:00:00 AM [facility]) Documentation of current 10/07/2019 MED GEN ([facility] medications (procedure) 12:00:00 AM [facility]) Documentation of current 10/07/2019 MED GEN ([facility] medications (procedure) 12:00:00 AM [facility]) Documentation of current 10/07/2019 MED GEN ([facility] medications (procedure) 12:00:00 AM [facility]) Documentation of current 10/07/2019 MED GEN ([facility] medications (procedure) 12:00:00 AM [facility]) Documentation of current 10/07/2019 MED GEN ([facility] medications (procedure) 12:00:00 AM [facility]) Documentation of current 10/07/2019 MED GEN ([facility] medications (procedure) 12:00:00 AM [facility]) Documentation of current 10/07/2019 MED GEN ([facility] medications (procedure) 12:00:00 AM [facility]) Documentation of current 10/07/2019 MED GEN ([facility] medications (procedure) 12:00:00 AM [facility]) Documentation of current 10/07/2019 MED GEN ([facility] medications (procedure) 12:00:00 AM [facility]) Documentation of current 10/07/2019 MED GEN ([facility] medications (procedure) 12:00:00 AM [facility]) Documentation of current 10/07/2019 MED GEN ([facility] medications (procedure) 12:00:00 AM [facility]) Documentation of current 10/07/2019 MED GEN ([facility] medications (procedure) 12:00:00 AM [facility]) OFFICE OUTPATIENT VISIT 10/07/2019 MEDG EN ([facility] 25 MINUTES 12:00:00 AM [facility], ) COLLECTION VENOUS BLOOD 10/07/2019 MEDG EN ([facility] VENIPUNCTURE 12:00:00 AM [facility]) Documentation of current 10/07/2019 MED GEN ([facility] medications (procedure) 12:00:00 AM [facility]) Documentation of current 10/07/2019 MED GEN ([facility] medications (procedure) 12:00:00 AM [facility]) Documentation of current 10/07/2019 MED GEN ([facility] medications (procedure) 12:00:00 AM [facility], [facility]) Documentation of current 10/07/2019 MED GEN ([facility] medications (procedure) 12:00:00 AM [facility]) Documentation of current 10/07/2019 MED GEN ([facility] medications (procedure) 12:00:00 AM [facility], [facility]) Documentation of current 10/07/2019 MED GEN ([facility] medications (procedure) 12:00:00 AM [facility], [facility]) Documentation of current 10/07/2019 MED GEN ([facility] medications (procedure) 12:00:00 AM [facility]) Documentation of current 10/07/2019 MED GEN ([facility] medications (procedure) 12:00:00 AM [facility]) Documentation of current 10/07/2019 MED GEN ([facility] medications (procedure) 12:00:00 AM [facility]) Documentation of current 10/07/2019 MED GEN ([facility] medications (procedure) 12:00:00 AM [facility]) Documentation of current 10/07/2019 MED GEN ([facility] medications (procedure) 12:00:00 AM [facility]) Documentation of current 10/07/2019 MED GEN ([facility] medications (procedure) 12:00:00 AM [facility]) Documentation of current 10/07/2019 MED GEN ([facility] medications (procedure) 12:00:00 AM [facility]) Documentation of current 10/07/2019 MED GEN ([facility] medications (procedure) 12:00:00 AM [facility]) Documentation of current 10/07/2019 MED GEN ([facility] medications (procedure) 12:00:00 AM [facility]) Documentation of current 10/07/2019 MED GEN ([facility] medications (procedure) 12:00:00 AM [facility]) Documentation of current 10/07/2019 MED GEN ([facility] medications (procedure) 12:00:00 AM [facility]) Documentation of current 10/07/2019 MED GEN ([facility] medications (procedure) 12:00:00 AM [facility]) Documentation of current 10/07/2019 MED GEN ([facility] medications (procedure) 12:00:00 AM EDT [facility]) OFFICE OUTPATIENT VISIT 10/07/2019 MEDG EN ([facility] 25 MINUTES 12:00:00 AM [facility], ) COLLECTION VENOUS BLOOD 10/07/2019 MEDG EN ([facility] VENIPUNCTURE 12:00:00 AM [facility], ) Documentation of current 10/07/2019 MED GEN ([facility] medications (procedure) 12:00:00 AM EDT [facility]) Documentation of current 10/07/2019 MED GEN ([facility] medications (procedure) 12:00:00 AM [facility]) Documentation of current 10/07/2019 MED GEN ([facility] medications (procedure) 12:00:00 AM [facility]) Documentation of current 10/07/2019 MED GEN ([facility] medications (procedure) 12:00:00 AM [facility]) Documentation of current 10/07/2019 MED GEN ([facility] medications (procedure) 12:00:00 AM [facility]) Documentation of current 10/07/2019 MED GEN ([facility] medications (procedure) 12:00:00 AM [facility]) Documentation of current 10/07/2019 MED GEN ([facility] medications (procedure) 12:00:00 AM [facility]) Documentation of current 10/07/2019 MED GEN ([facility] medications (procedure) 12:00:00 AM [facility]) Documentation of current 10/07/2019 MED GEN ([facility] medications (procedure) 12:00:00 AM [facility]) Documentation of current 10/07/2019 MED GEN ([facility] medications (procedure) 12:00:00 AM [facility]) Documentation of current 10/07/2019 MED GEN ([facility] medications (procedure) 12:00:00 AM [facility]) Documentation of current 10/07/2019 MED GEN ([facility] medications (procedure) 12:00:00 AM [facility]) Documentation of current 10/07/2019 MED GEN ([facility] medications (procedure) 12:00:00 AM [facility]) Documentation of current 10/07/2019 MED GEN ([facility] medications (procedure) 12:00:00 AM [facility]) Documentation of current 10/07/2019 MED GEN ([facility] medications (procedure) 12:00:00 AM [facility]) Documentation of current 10/07/2019 MED GEN ([facility] medications (procedure) 12:00:00 AM [facility]) Documentation of current 10/07/2019 MED GEN ([facility] medications (procedure) 12:00:00 AM [facility]) Documentation of current 10/07/2019 MED GEN ([facility] medications (procedure) 12:00:00 AM [facility]) Documentation of current 10/07/2019 MED GEN ([facility] medications (procedure) 12:00:00 AM [facility]) Documentation of current 10/07/2019 MED GEN ([facility] medications (procedure) 12:00:00 AM [facility]) Documentation of current 10/07/2019 MED GEN ([facility] medications (procedure) 12:00:00 AM [facility]) Documentation of current 10/07/2019 MED GEN ([facility] medications (procedure) 12:00:00 AM [facility]) Documentation of current 10/07/2019 MED GEN ([facility] medications (procedure) 12:00:00 AM [facility]) OFFICE OUTPATIENT VISIT 10/07/2019 MEDG EN ([facility] 25 MINUTES 12:00:00 AM [facility], ) COLLECTION VENOUS BLOOD 10/07/2019 MEDG EN ([facility] VENIPUNCTURE 12:00:00 AM [facility], ) Documentation of current 10/07/2019 MED GEN ([facility] medications (procedure) 12:00:00 AM [facility]) Documentation of current 10/07/2019 MED GEN ([facility] medications (procedure) 12:00:00 AM [facility]) Documentation of current 10/07/2019 MED GEN ([facility] medications (procedure) 12:00:00 AM [facility]) Documentation of current 10/07/2019 MED GEN ([facility] medications (procedure) 12:00:00 AM [facility]) Documentation of current 10/07/2019 MED GEN ([facility] medications (procedure) 12:00:00 AM [facility]) Documentation of current 10/07/2019 MED GEN ([facility] medications (procedure) 12:00:00 AM [facility]) Documentation of current 10/07/2019 MED GEN ([facility] medications (procedure) 12:00:00 AM [facility]) Documentation of current 10/07/2019 MED GEN ([facility] medications (procedure) 12:00:00 AM [facility], [facility]) Documentation of current 10/07/2019 MED GEN ([facility] medications (procedure) 12:00:00 AM [facility]) Documentation of current 10/07/2019 MED GEN ([facility] medications (procedure) 12:00:00 AM [facility]) Documentation of current 10/07/2019 MED GEN ([facility] medications (procedure) 12:00:00 AM EDT [facility], ) OFFICE OUTPATIENT VISIT 10/07/2019 MEDG EN ([facility] VEN[facility] BLOOD 10/07/2019 MEDG EN (Jessica's VENIPUNCTURE 12:00:00 AM [facility]) Documentation of current 10/07/2019 MED GEN (Jessica's medications (procedure) 12:00:00 AM EDT [facility], [facility]) Documentation of current 10/07/2019 MED GEN (Jessica's medications (procedure) 12:00:00 AM EDT [facility], [facility]) Documentation of current 10/07/2019 MED GEN (Jessica's medications (procedure) 12:00:00 AM EDT [facility], [facility]) Documentation of current 10/07/2019 MED GEN (Jessica's medications (procedure) 12:00:00 AM EDT [facility], [facility]) Documentation of current 10/07/2019 MED GEN (Jessica's medications (procedure) 12:00:00 AM EDT [facility], [facility]) Documentation of current 10/07/2019 MED GEN (Jessica's medications (procedure) 12:00:00 AM EDT [facility], [facility]) Documentation of current 10/07/2019 MED GEN (Jessica's medications (procedure) 12:00:00 AM EDT [facility], [facility]) Documentation of current 10/07/2019 MED GEN (Jessica's medications (procedure) 12:00:00 AM EDT [facility], PC) Documentation of current 10/07/2019 MED GEN (Jessica's medications (procedure) 12:00:00 AM EDT [facility], PC) Documentation of current 10/07/2019 MED GEN (Jessica's medications (procedure) 12:00:00 AM EDT [facility], PC) Documentation of current 10/07/2019 MED GEN (Jessica's medications (procedure) 12:00:00 AM EDT natalie, CARID[facility]) OFFICE OUTPATIENT VISIT 10/07/2019 MEDG EN (Jessica's 25 MINUTES 12:00:00 AM CARIDAD Durán) Documentation of current 10/04/2019 MED GEN (Jessica's medications (procedure) 12:00:00 AM EDT eLwis etsrada, CARIDAD) Documentation of current 10/04/2019 MED GEN (Jessica's medications (procedure) 12:00:00 AM EDT [facility], PC) Documentation of current 10/04/2019 MED GEN (Jessica's medications (procedure) 12:00:00 AM EDT [facility], PC) Documentation of current 10/04/2019 MED GEN (Jessica's medications (procedure) 12:00:00 AM EDT [facility], PC) Documentation of current 10/04/2019 MED GEN (Jessica's medications (procedure) 12:00:00 AM EDT [facility], [facility]) Documentation of current 10/04/2019 MED GEN (Jessica's medications (procedure) 12:00:00 AM EDT [facility] Hsu) Documentation of current 10/04/2019 MED GEN (Jesisca's medications (procedure) 12:00:00 AM EDT [facility]) Documentation of current 10/04/2019 MED GEN (Jessica's medications (procedure) 12:00:00 AM EDT [facility]) Documentation of current 10/04/2019 MED GEN (Jessica's medications (procedure) 12:00:00 AM EDT [facility]) Documentation of current 10/04/2019 MED GEN (Jessica's medications (procedure) 12:00:00 AM EDT [facility]) PHYSICIAN TELEPHONE 10/04/2019 MEDGEN ( Jessica's EVALUATION 21-30 MIN 12:00:00 AM EDT CARID[facility] Yeh) Documentation of current 10/04/2019 MED GEN (Jessica's medications (procedure) 12:00:00 AM EDT [facility]su) Documentation of current 10/04/2019 MED GEN (Jessica's medications (procedure) 12:00:00 AM EDT [facility]) Documentation of current 10/04/2019 MED GEN (Jessica's medications (procedure) 12:00:00 AM EDT [facility]) Documentation of current 10/04/2019 MED GEN (Jessica's medications (procedure) 12:00:00 AM EDT [facility]) Documentation of current 10/04/2019 MED GEN (Jessica's medications (procedure) 12:00:00 AM EDT [facility]) Documentation of current 10/04/2019 MED GEN (Jessica's medications (procedure) 12:00:00 AM EDT [facility] Hsu) Documentation of current 10/04/2019 MED GEN (Jessica's medications (procedure) 12:00:00 AM EDT [facility] Hsu) Documentation of current 10/04/2019 MED GEN (Jessica's medications (procedure) 12:00:00 AM EDT [facility] Hsu) Documentation of current 10/04/2019 MED GEN (Jessica's medications (procedure) 12:00:00 AM EDT [facility] Hsu) Documentation of current 10/04/2019 MED GEN (Jessica's medications (procedure) 12:00:00 AM EDT CARIDAD estrada) PHYSICIAN TELEPHONE 10/04/2019 MEDGEN ( Jessica's EVALUATION 21-30 MIN 12:00:00 AM EDT CAR[facility] Yeh) Documentation of current 10/04/2019 MED GEN (Jessica's medications (procedure) 12:00:00 AM EDT CARID[facility] estrada) Documentation of current 10/04/2019 MED GEN (Jessica's medications (procedure) 12:00:00 AM EDT [facility]) Documentation of current 10/04/2019 MED GEN (Jessica's medications (procedure) 12:00:00 AM EDT [facility]) Documentation of current 10/04/2019 MED GEN (Jessica's medications (procedure) 12:00:00 AM EDT CARIDAD estrada) Documentation of current 10/04/2019 MED GEN (Jessica's medications (procedure) 12:00:00 AM EDT [facility]) Documentation of current 10/04/2019 MED GEN (Jessica's medications (procedure) 12:00:00 AM EDT [facility]) Documentation of current 10/04/2019 MED GEN (Jessica's medications (procedure) 12:00:00 AM EDT [facility]) Documentation of current 10/04/2019 MED GEN (Jessica's medications (procedure) 12:00:00 AM EDT [facility]) Documentation of current 10/04/2019 MED GEN (Jessica's medications (procedure) 12:00:00 AM EDT [facility] PC) PHYSICIAN TELEPHONE 10/04/2019 MEDGEN ( Jessica's EVALUATION 21-30 MIN 12:00:00 AM EDT [facility]) Documentation of current 10/04/2019 MED GEN (Jessica's medications (procedure) 12:00:00 AM EDT [facility] PC) Documentation of current 10/04/2019 MED GEN (Jessica's medications (procedure) 12:00:00 AM EDT [facility] PC) Documentation of current 10/04/2019 MED GEN (Jessica's medications (procedure) 12:00:00 AM EDT [facility] PC) Documentation of current 10/04/2019 MED GEN (Jessica's medications (procedure) 12:00:00 AM EDT [facility] Hsu) Documentation of current 10/04/2019 MED GEN (Jessica's medications (procedure) 12:00:00 AM EDT [facility]) Documentation of current 10/04/2019 MED GEN (Jessica's medications (procedure) 12:00:00 AM EDT [facility]) Documentation of current 10/04/2019 MED GEN (Jessica's medications (procedure) 12:00:00 AM EDT [facility]su) Documentation of current 10/04/2019 MED GEN (Jessica's medications (procedure) 12:00:00 AM EDT CARIDAD estrada) Documentation of current 10/04/2019 MED GEN (Jessica's medications (procedure) 12:00:00 AM EDT [facility]) PHYSICIAN TELEPHONE 10/04/2019 MEDGEN ( Jessica's EVALUATION 21-30 MIN 12:00:00 AM EDT CAR[facility] Yeh) Documentation of current 10/04/2019 MED GEN (Jessica's medications (procedure) 12:00:00 AM EDT [facility]su) Documentation of current 10/04/2019 MED GEN (Jessica's medications (procedure) 12:00:00 AM EDT [facility]) Documentation of current 10/04/2019 MED GEN (Jessica's medications (procedure) 12:00:00 AM EDT [facility]su) Documentation of current 10/04/2019 MED GEN (Jessica's medications (procedure) 12:00:00 AM EDT [facility]) Documentation of current 10/04/2019 MED GEN (Jessica's medications (procedure) 12:00:00 AM EDT [facility]su) Documentation of current 10/04/2019 MED GEN (Jessica's medications (procedure) 12:00:00 AM EDT [facility]) Documentation of current 10/04/2019 MED GEN (Jessica's medications (procedure) 12:00:00 AM EDT [facility]) Documentation of current 10/04/2019 MED GEN (Jessica's medications (procedure) 12:00:00 AM EDT [facility]su) Documentation of current 10/04/2019 MED GEN (Jessica's medications (procedure) 12:00:00 AM EDT [facility]su) PHYSICIAN TELEPHONE 10/04/2019 MEDGEN ( Jessica's EVALUATION 21-30 MIN 12:00:00 AM EDT CARID[facility] Yeh) Documentation of current 10/04/2019 MED GEN (Jessica's medications (procedure) 12:00:00 AM EDT [facility] Hsu) Documentation of current 10/04/2019 MED GEN (Jessica's medications (procedure) 12:00:00 AM EDT [facility]su) Documentation of current 10/04/2019 MED GEN (Jessica's medications (procedure) 12:00:00 AM EDT [facility] PC) Documentation of current 10/04/2019 MED GEN (Jessica's medications (procedure) 12:00:00 AM EDT [facility]) Documentation of current 10/04/2019 MED GEN (Jessica's medications (procedure) 12:00:00 AM EDT [facility]) Documentation of current 10/04/2019 MED GEN (Jessica's medications (procedure) 12:00:00 AM EDT [facility] PC) Documentation of current 10/04/2019 MED GEN (Jessica's medications (procedure) 12:00:00 AM EDT [facility] PC) Documentation of current 10/04/2019 MED GEN (Jessica's medications (procedure) 12:00:00 AM EDT CARIDAD estrada) Documentation of current 10/04/2019 MED GEN (Jessica's medications (procedure) 12:00:00 AM EDT [facility] PC) PHYSICIAN TELEPHONE 10/04/2019 MEDGEN ( Jessica's EVALUATION 21-30 MIN 12:00:00 AM EDT [facility], [facility]) Documentation of current 10/04/2019 MED GEN (Jessica's medications (procedure) 12:00:00 AM EDT [facility] PC) Documentation of current 10/04/2019 MED GEN (Jessica's medications (procedure) 12:00:00 AM EDT CARIDAD estrada) Documentation of current 10/04/2019 MED GEN (Jessica's medications (procedure) 12:00:00 AM EDT [facility]) Documentation of current 10/04/2019 MED GEN (Jessica's medications (procedure) 12:00:00 AM EDT [facility], PC) Documentation of current 10/04/2019 MED GEN (Jessica's medications (procedure) 12:00:00 AM EDT [facility] Hsu) Documentation of current 10/04/2019 MED GEN (Jessica's medications (procedure) 12:00:00 AM EDT CAR[facility] Hsu) Documentation of current 10/04/2019 MED GEN (Jessica's medications (procedure) 12:00:00 AM EDT [facility] Hsu) Documentation of current 10/04/2019 MED GEN (Jessica's medications (procedure) 12:00:00 AM EDT [facility]su) Documentation of current 10/04/2019 MED GEN (Jessica's medications (procedure) 12:00:00 AM EDT [facility]) PHYSICIAN TELEPHONE 10/04/2019 MEDGEN ( Jessica's EVALUATION 21-30 MIN 12:00:00 AM EDT CARID[facility] Yeh) Documentation of current 10/04/2019 MED GEN (Jessica's medications (procedure) 12:00:00 AM EDT CAR[facility] Hsu) Documentation of current 10/04/2019 MED GEN (Jessica's medications (procedure) 12:00:00 AM EDT [facility] Hsu) Documentation of current 10/04/2019 MED GEN (Jessica's medications (procedure) 12:00:00 AM EDT [facility]su) Documentation of current 10/04/2019 MED GEN (Jessica's medications (procedure) 12:00:00 AM EDT [facility] Hsu) Documentation of current 10/04/2019 MED GEN (Jessica's medications (procedure) 12:00:00 AM EDT CARID[facility] Hsu) Documentation of current 10/04/2019 MED GEN (Jessica's medications (procedure) 12:00:00 AM EDT [facility] Hsu) Documentation of current 10/04/2019 MED GEN (Jessica's medications (procedure) 12:00:00 AM EDT CAR[facility] Hsu) Documentation of current 10/04/2019 MED GEN (Jessica's medications (procedure) 12:00:00 AM EDT CAR[facility] Hsu) Documentation of current 10/04/2019 MED GEN (Jessica's medications (procedure) 12:00:00 AM EDT CARID[facility] Hsu) Documentation of current 10/04/2019 MED GEN (Jessica's medications (procedure) 12:00:00 AM EDT CAR[facility] Hsu) Documentation of current 10/04/2019 MED GEN (Jessica's medications (procedure) 12:00:00 AM EDT [facility] Hsu) Documentation of current 10/04/2019 MED GEN (Jessica's medications (procedure) 12:00:00 AM EDT CARID[facility] Hsu) Documentation of current 10/04/2019 MED GEN (Jessica's medications (procedure) 12:00:00 AM EDT [facility] Hsu) Documentation of current 10/04/2019 MED GEN (Jessica's medications (procedure) 12:00:00 AM EDT [facility] Hsu) Documentation of current 10/04/2019 MED GEN (Jessica's medications (procedure) 12:00:00 AM EDT [facility] Hsu) Documentation of current 10/04/2019 MED GEN (Jessica's medications (procedure) 12:00:00 AM EDT CAR[facility] Hsu) Documentation of current 10/04/2019 MED GEN (Jessica's medications (procedure) 12:00:00 AM EDT CAR[facility] Hsu) Documentation of current 10/04/2019 MED GEN (Jessica's medications (procedure) 12:00:00 AM EDT CAR[facility] Hsu) PHYSICIAN TELEPHONE 10/04/2019 MEDGEN ( Jessica's EVALUATION 21-30 MIN 12:00:00 AM EDT CARIDAD Yeh) Documentation of current 10/04/2019 MED GEN (Jessica's medications (procedure) 12:00:00 AM EDT CARID[facility] Hsu) Documentation of current 10/04/2019 MED GEN (Jessica's medications (procedure) 12:00:00 AM EDT CAR[facility] Hsu) Documentation of current 10/04/2019 MED GEN (Jessica's medications (procedure) 12:00:00 AM EDT [facility] Hsu) Documentation of current 10/04/2019 MED GEN (Jessica's medications (procedure) 12:00:00 AM EDT [facility] Hsu) Documentation of current 10/04/2019 MED GEN (Jessica's medications (procedure) 12:00:00 AM EDT [facility] Hsu) Documentation of current 10/04/2019 MED GEN (Jessica's medications (procedure) 12:00:00 AM EDT [facility], [facility]) Documentation of current 10/04/2019 MED GEN (Jessica's medications (procedure) 12:00:00 AM EDT [facility], PC) Documentation of current 10/04/2019 MED GEN (Jessica's medications (procedure) 12:00:00 AM EDT [facility], PC) Documentation of current 10/04/2019 MED GEN (Jessica's medications (procedure) 12:00:00 AM EDT [facility], PC) PHYSICIAN TELEPHONE 10/04/2019 MEDGEN ( Jessica's EVALUATION 21-30 MIN 12:00:00 AM EDT [facility], [facility]) Documentation of current 10/04/2019 MED GEN (Jessica's medications (procedure) 12:00:00 AM EDT [facility], PC) Documentation of current 10/04/2019 MED GEN (Jessica's medications (procedure) 12:00:00 AM EDT [facility], PC) Documentation of current 10/04/2019 MED GEN (Jessica's medications (procedure) 12:00:00 AM EDT [facility], PC) Documentation of current 10/04/2019 MED GEN (Jessica's medications (procedure) 12:00:00 AM EDT [facility], PC) Documentation of current 10/04/2019 MED GEN (Jessica's medications (procedure) 12:00:00 AM EDT [facility], PC) Documentation of current 10/04/2019 MED GEN (Jessica's medications (procedure) 12:00:00 AM EDT [facility], PC) Documentation of current 10/04/2019 MED GEN (Jessica's medications (procedure) 12:00:00 AM EDT [facility], PC) Documentation of current 10/04/2019 MED GEN (Jessica's medications (procedure) 12:00:00 AM EDT [facility], PC) Documentation of current 10/04/2019 MED GEN (Jessica's medications (procedure) 12:00:00 AM EDT [facility], PC) PHYSICIAN TELEPHONE 10/04/2019 MEDGEN ( Jessica's EVALUATION 21-30 MIN 12:00:00 AM EDT [facility], [facility]) Documentation of current 10/04/2019 MED GEN (Jessica's medications (procedure) 12:00:[facility] Documentation of current 10/04/2019 MED GEN (Jessica's medications (procedure) 12:00:[facility] Documentation of current 10/04/2019 MED GEN (Jessica's medications (procedure) 12:00:00 AM EDT [facility] ) Documentation of current 10/04/2019 MED GEN (Jessica's medications (procedure) 12:00:00 AM EDT [facility] ) Documentation of current 10/04/2019 MED GEN (Jessica's medications (procedure) 12:00:00 AM EDT [facility] ) Documentation of current 10/04/2019 MED GEN (Jessica's medications (procedure) 12:00:00 AM EDT natalie ) Documentation of current 10/04/2019 MED GEN (Jessica's medications (procedure) 12:00:00 AM EDT natalie ) Documentation of current 10/04/2019 MED GEN (Jess[facility]procedure) [facility] Documentation of current 10/04/2019 MED GEN (Jessica's medications (procedure) 12:00:00 AM EDT [facility] ) PHYSICIAN TELEPHONE 10/04/2019 MEDGEN ( Jessica's EVALUATION 21-30 MIN 12:00:00 AM [facility], ) OFFICE OUTPATIENT VISIT 09/20/2019 MEDG EN ([facility] COLLE[facility] VENOUS BLOOD 09/20/2019 MEDG EN (Jessica's VENIPUNCTURE 12:00:00 AM [facility], ) OFFICE OUTPATIENT VISIT 09/20/2019 MEDG EN (Jessica's 15 MINUTES 12:00:00 AM [facility], ) COLLECTION VENOUS BLOOD 09/20/2019 MEDG EN (Jessica's VENIPUNCTURE 12:00:00 AM [facility], ) OFFICE OUTPATIENT VISIT 09/20/2019 MEDG EN (Jessica's 15 MINUTES 12:00:00 AM [facility], ) COLLECTION VENOUS BLOOD 09/20/2019 MEDG EN (Jessica's VENIPUNCTURE 12:00:00 AM [facility], ) OFFICE OUTPATIENT VISIT 09/20/2019 MEDG EN (Jessica's 15 MINUTES 12:00:00 AM EDT Medical, ) COLLECTION VENOUS BLOOD 09/20/2019 MEDG EN (Jessica's VENIPUNCTURE 12:00:00 AM EDT Medical, ) OFFICE OUTPATIENT VISIT 09/20/2019 MEDG EN (Jessica's 15 MINUTES 12:00:00 AM EDT Medical, ) COLLECTION VENOUS BLOOD 09/20/2019 MEDG EN (Jessica's VENIPUNCTURE 12:00:00 AM EDT [facility], ) OFFICE OUTPATIENT VISIT 09/20/2019 MEDG EN (Jessica's 15 MINUTES 12:00:00 AM EDT Medical, ) COLLECTION VENOUS BLOOD 09/20/2019 MEDG EN (Jessica's VENIPUNCTURE 12:00:00 AM EDT Medical, ) OFFICE OUTPATIENT VISIT 09/20/2019 MEDG EN (Jessica's 15 MINUTES 12:00:00 AM EDT Medical, ) COLLECTION VENOUS BLOOD 09/20/2019 MEDG EN (Jessica's VENIPUNCTURE 12:00:00 AM EDT Medical, ) OFFICE OUTPATIENT VISIT 09/20/2019 MEDG EN (Jessica's 15 MINUTES 12:00:00 AM EDT Medical, ) COLLECTION VENOUS BLOOD 09/20/2019 MEDG EN (Jessica's VENIPUNCTURE 12:00:00 AM EDT Medical, ) OFFICE OUTPATIENT VISIT 09/20/2019 MEDG EN (Jessica's 15 MINUTES 12:00:00 AM EDT Medical, ) COLLECTION VENOUS BLOOD 09/20/2019 MEDG EN (Jessica's VENIPUNCTURE 12:00:00 AM EDT Medical, ) OFFICE OUTPATIENT VISIT 09/20/2019 MEDG EN (Jessica's 15 MINUTES 12:00:00 AM EDT Medical, ) COLLECTION VENOUS BLOOD 09/20/2019 MEDG EN (Jessica's VENIPUNCTURE 12:00:00 AM EDT Medical, ) OFFICE OUTPATIENT VISIT 09/20/2019 MEDG EN (Jessica's 15 MINUTES 12:00:00 AM EDT Medical, ) COLLECTION VENOUS BLOOD 09/20/2019 MEDG EN (Jessica's VENIPUNCTURE 12:00:00 AM EDT [facility], ) PHYSICIAN TELEPHONE 08/26/2019 MEDGEN ( Jessica's EVALUATION 21-30 MIN 12:00:00 AM EDT Medi [facility], ) PHYSICIAN TELEPHONE 08/26/2019 MEDGEN ( Jessica's EVALUATION 21-30 MIN 12:00:00 AM EDT [facility], ) PHYSICIAN TELEPHONE 08/26/2019 MEDGEN ( Jessica's EVALUATION 21-30 MIN 12:00:00 AM EDT [facility], ) PHYSICIAN TELEPHONE 08/26/2019 MEDGEN ( Jessica's EVALUATION 21-30 MIN 12:00:00 AM EDT [facility], [facility]) PHYSICIAN TELEPHONE 08/26/2019 MEDGEN ( Jessica's EVALUATION 21-30 MIN 12:00:00 AM EDT [facility], ) PHYSICIAN TELEPHONE 08/26/2019 MEDGEN ( Jessica's EVALUATION 21-30 MIN 12:00:00 AM EDT [facility], [facility]) PHYSICIAN TELEPHONE 08/26/2019 MEDGEN ( Jessica's EVALUATION 21-30 MIN 12:00:00 AM EDT [facility], ) PHYSICIAN TELEPHONE 08/26/2019 MEDGEN ( Jessica's EVALUATION 21-30 MIN 12:00:00 AM EDT [facility], ) PHYSICIAN TELEPHONE 08/26/2019 MEDGEN ( Jessica's EVALUATION 21-30 MIN 12:00:00 AM EDT [facility], ) PHYSICIAN TELEPHONE 08/26/2019 MEDGEN ( Jessica's EVALUATION 21-30 MIN 12:00:00 AM EDT [facility], ) PHYSICIAN TELEPHONE 08/26/2019 MEDGEN ( Jessica's EVALUATION 21-30 MIN 12:00:00 AM EDT [facility], ) OFFICE OUTPATIENT VISIT 06/11/2019 MEDG EN (Jessica's 15 MINUTES 12:00:00 AM EST [facility], PC) OFFICE OUTPATIENT VISIT 06/11/2019 MEDG EN (Jessica's 15 MINUTES 12:00:00 AM EST [facility], PC) OFFICE OUTPATIENT VISIT 06/11/2019 MEDG EN (Jessica's 15 MINUTES 12:00:00 AM EST Medical, PC) OFFICE OUTPATIENT VISIT 06/11/2019 MEDG EN (Jessica's 15 MINUTES 12:00:00 AM EST Medical, PC) OFFICE OUTPATIENT VISIT 06/11/2019 MEDG EN (Jessica's 15 MINUTES 12:00:00 AM EST Medical, PC) OFFICE OUTPATIENT VISIT 06/11/2019 MEDG EN (Jessica's 15 MINUTES 12:00:00 AM EST Medical, PC) OFFICE OUTPATIENT VISIT 06/11/2019 MEDG EN (Jessica's 15 MINUTES 12:00:00 AM EST Medical, PC) OFFICE OUTPATIENT VISIT 06/11/2019 MEDG EN (Jessica's 15 MINUTES 12:00:00 AM EST Medical, PC) OFFICE OUTPATIENT VISIT 06/11/2019 MEDG EN (Jessica's 15 MINUTES 12:00:00 AM EST Medical, PC) OFFICE OUTPATIENT VISIT 06/11/2019 MEDG EN (Jessica's 15 MINUTES 12:00:00 AM EST Medical, PC) OFFICE OUTPATIENT VISIT 06/11/2019 MEDG EN (Jessica's 15 MINUTES 12:00:00 AM EST Medical, PC) OFFICE OUTPATIENT VISIT 05/28/2019 MEDG EN (Jessica's 15 MINUTES 12:00:00 AM EST Medical, PC) OFFICE OUTPATIENT VISIT 05/28/2019 MEDG EN (Jessica's 15 MINUTES 12:00:00 AM EST Medical, PC) OFFICE OUTPATIENT VISIT 05/28/2019 MEDG EN (Jessica's 15 MINUTES 12:00:00 AM EST Medical, PC) OFFICE OUTPATIENT VISIT 05/28/2019 MEDG EN (Jessica's 15 MINUTES 12:00:00 AM EST Medical, PC) OFFICE OUTPATIENT VISIT 05/28/2019 MEDG EN (Jessica's 15 MINUTES 12:00:00 AM EST Medical, PC) OFFICE OUTPATIENT VISIT 05/28/2019 MEDG EN (Jessica's 15 MINUTES 12:00:00 AM EST Medical, PC) OFFICE OUTPATIENT VISIT 05/28/2019 MEDG EN (Jessica's 15 MINUTES 12:00:00 AM EST Medical, PC) OFFICE OUTPATIENT VISIT 05/28/2019 MEDG EN (Jessica's 15 MINUTES 12:00:00 AM EST Medical, PC) OFFICE OUTPATIENT VISIT 05/28/2019 MEDG EN (Jessica's 15 MINUTES 12:00:00 AM EST Medical, PC) OFFICE OUTPATIENT VISIT 05/28/2019 MEDG EN (Jessica's 15 MINUTES 12:00:00 AM EST Medical, PC) OFFICE OUTPATIENT VISIT 05/28/2019 MEDG EN (Jessica's 15 MINUTES 12:00:00 AM EST Medical, PC) Documentation of current 04/16/2019 MED GEN (Jessica's medications (procedure) 12:00:00 AM EST M [facility]ical, PC) Documentation of current 04/16/2019 MED GEN (Jessica's medications (procedure) 12:00:00 AM CARIDAD Chavarria) Documentation of current 04/16/2019 MED GEN (Jessica's medications (procedure) 12:00:00 AM CARIDAD [place]av[place]) OFFICE OUTPATIENT VISIT 04/16/2019 MEDG EN (Jessica's 15 MINUTES 12:00:00 AM CARIDAD [facility]) COLLECTION VENOUS BLOOD 04/16/2019 MEDG EN (Jessica's VENIPUNCTURE 12:00:00 AM CARIDAD [place]) Documentation of current 04/16/2019 MED GEN (Jessica's medications (procedure) 12:00:00 AM CARIDAD [place]av[place]ria) Documentation of current 04/16/2019 MED GEN (Jessica's medications (procedure) 12:00:00 AM CARIDAD [place]) Documentation of current 04/16/2019 MED GEN (Jessica's medications (procedure) 12:00:00 AM CARIDAD [place]) Documentation of current 04/16/2019 MED GEN (Jessica's medications (procedure) 12:00:00 AM CARIDAD [place]) Documentation of current 04/16/2019 MED GEN (Jessica's medications (procedure) 12:00:00 AM CARIDAD [place]) Documentation of current 04/16/2019 MED GEN (Jessica's medications (procedure) 12:00:00 AM CARIDAD [place]) Documentation of current 04/16/2019 MED GEN (Jessica's medications (procedure) 12:00:00 AM CARIDAD [place]) Documentation of current 04/16/2019 MED GEN (Jessica's medications (procedure) 12:00:00 AM CARIDAD [place]) Documentation of current 04/16/2019 MED GEN (Jessica's medications (procedure) 12:00:00 AM CARIDAD [place]) Documentation of current 04/16/2019 MED GEN (Jessica's medications (procedure) 12:00:00 AM CARIDAD [place]av[place]) Documentation of current 04/16/2019 MED GEN (Jessica's medications (procedure) 12:00:00 AM CARIDAD [place]) Documentation of current 04/16/2019 MED GEN (Jessica's medications (procedure) 12:00:00 AM RJ estrada, CARIDAD) Documentation of current 04/16/2019 MED GEN (Jessica's medications (procedure) 12:00:00 AM CARIDAD [place]av[place]) Documentation of current 04/16/2019 MED GEN (Jessica's medications (procedure) 12:00:00 AM CARIDAD [place]av[place]) Documentation of current 04/16/2019 MED GEN (Jessica's medications (procedure) 12:00:00 AM CARIDAD [place]av[place]) Documentation of current 04/16/2019 MED GEN (Jessica's medications (procedure) 12:00:00 AM RJ estrada, CARIDAD) Documentation of current 04/16/2019 MED GEN (Jessica's medications (procedure) 12:00:00 AM RJ estrada, CARIDAD) Documentation of current 04/16/2019 MED GEN (Jessica's medications (procedure) 12:00:00 AM [facility] estrada, PC) Documentation of current 04/16/2019 MED GEN (Jessica's medications (procedure) 12:00:00 AM RJ estrada, CARIDAD) Documentation of current 04/16/2019 MED GEN (Jessica's medications (procedure) 12:00:00 AM RJ estrada, PC) Documentation of current 04/16/2019 MED GEN (Jessica's medications (procedure) 12:00:00 AM CARIDAD Chavarria) Documentation of current 04/16/2019 MED GEN (Jessica's medications (procedure) 12:00:00 AM CARIDAD [place]av[place]) Documentation of current 04/16/2019 MED GEN (Jessica's medications (procedure) 12:00:00 AM CARIDAD [place]av[place]) Documentation of current 04/16/2019 MED GEN (Jessica's medications (procedure) 12:00:00 AM [facility] estrada, PC) Documentation of current 04/16/2019 MED GEN (Jessica's medications (procedure) 12:00:00 AM [facility] estrada, PC) Documentation of current 04/16/2019 MED GEN (Jessica's medications (procedure) 12:00:00 AM R[facility] estrada, PC) Documentation of current 04/16/2019 MED GEN (Jessica's medications (procedure) 12:00:00 AM R[facility] estrada, PC) Documentation of current 04/16/2019 MED GEN (Jessica's medications (procedure) 12:00:00 AM RJ estrada, CARIDAD) Documentation of current 04/16/2019 MED GEN ([facility] (procedure) 12:00:00 AM [facility]) Documentation of current 04/16/2019 MED GEN ([facility] (procedure) 12:00:00 AM [facility], [facility]) Documentation of current 04/16/2019 MED GEN ([facility] (procedure) 12:00:00 AM [facility] estrada, [facility]) Documentation of current 04/16/2019 MED GEN ([facility] (procedure) 12:00:00 AM [facility] estrada, PC) Documentation of current 04/16/2019 MED GEN ([facility] (procedure) 12:00:00 AM [facility] estrada, PC) Documentation of current 04/16/2019 MED GEN ([facility] (procedure) 12:00:00 AM [facility] estrada, PC) Documentation of current 04/16/2019 MED GEN ([facility] (procedure) 12:00:00 AM RJ estrada, CARIDAD) Documentation of current 04/16/2019 MED GEN ([facility] (procedure) 12:00:00 AM [facility] estrada, PC) Documentation of current 04/16/2019 MED GEN ([facility] (procedure) 12:00:00 AM [facility] estrada [facility]) Documentation of current 04/16/2019 MED GEN ([facility] (procedure) 12:00:00 AM [facility] estrada, PC) Documentation of current 04/16/2019 MED GEN ([facility] (procedure) 12:00:00 AM CARIDAD Chavarria) OFFICE OUTPATIENT VISIT 04/16/2019 MEDG EN ([facility] 15 MINUTES 12:00:00 AM RJ Wright, PC) COLLECTION VENOUS BLOOD 04/16/2019 MEDG EN ([facility] VENIPUNCTURE 12:00:00 AM R[facility] Wright, PC) Documentation of current 04/16/2019 MED GEN ([facility] medications (procedure) 12:00:00 AM RJ estrada, PC) Documentation of current 04/16/2019 MED GEN ([facility] (procedure) 12:00:00 AM RJ estrada, PC) Documentation of current 04/16/2019 MED GEN ([facility] (procedure) 12:00:00 AM CARIDAD Chavarria) Documentation of current 04/16/2019 MED GEN ([facility] medications (procedure) 12:00:00 AM CARIDAD Chavarria) Documentation of current 04/16/2019 MED GEN ([facility] (procedure) 12:00:00 AM CARIDAD Chavarria) Documentation of current 04/16/2019 MED GEN ([facility] (procedure) 12:00:00 AM CARIDAD Chavarria) Documentation of current 04/16/2019 MED GEN ([facility] (procedure) 12:00:00 AM CARIDAD Chavarria) Documentation of current 04/16/2019 MED GEN ([facility] (procedure) 12:00:00 AM CARIDAD Chavarria) Documentation of current 04/16/2019 MED GEN ([facility] medications (procedure) 12:00:00 AM CARIDAD Chavarria) Documentation of current 04/16/2019 MED GEN ([facility] (procedure) 12:00:00 AM CARIDAD Chavarria) Documentation of current 04/16/2019 MED GEN ([facility] medications (procedure) 12:00:00 AM CARIDAD Chavarria) Documentation of current 04/16/2019 MED GEN ([facility] (procedure) 12:00:00 AM CARIDAD Chavarria) Documentation of current 04/16/2019 MED GEN ([facility] (procedure) 12:00:00 AM CARIDAD Chavarria) Documentation of current 04/16/2019 MED GEN ([facility] medications (procedure) 12:00:00 AM CARIDAD Chavarria) Documentation of current 04/16/2019 MED GEN ([facility] medications (procedure) 12:00:00 AM CARIDAD Chavarria) Documentation of current 04/16/2019 MED GEN ([facility] medications (procedure) 12:00:00 AM CARIDAD Chavarria) Documentation of current 04/16/2019 MED GEN ([facility] (procedure) 12:00:00 AM [facility] estrada, PC) Documentation of current 04/16/2019 MED GEN ([facility] medications (procedure) 12:00:00 AM CARIDAD Chavarria) Documentation of current 04/16/2019 MED GEN ([facility] medications (procedure) 12:00:00 AM CARIDAD Chavarria) Documentation of current 04/16/2019 MED GEN ([facility] (procedure) 12:00:00 AM CARIDAD Chavarria) Documentation of current 04/16/2019 MED GEN ([facility] (procedure) 12:00:00 AM CARIDAD Chavarria) OFFICE OUTPATIENT VISIT 04/16/2019 MEDG EN ([facility] 15 MINUTES 12:00:00 AM CARIDAD Butler) COLLECTION VENOUS BLOOD 04/16/2019 MEDG EN ([facility] VENIPUNCTURE 12:00:00 AM CARIDAD Butler) Documentation of current 04/16/2019 MED GEN ([facility] medications (procedure) 12:00:00 AM CARIDAD Chavarria) Documentation of current 04/16/2019 MED GEN ([facility] medications (procedure) 12:00:00 AM CARIDAD Chavarria) Documentation of current 04/16/2019 MED GEN ([facility] medications (procedure) 12:00:00 AM CARIDAD Chavarria) Documentation of current 04/16/2019 MED GEN ([facility] medications (procedure) 12:00:00 AM CARIDAD Chavarria) Documentation of current 04/16/2019 MED GEN ([facility] (procedure) 12:00:00 AM CARIDAD Chavarria) Documentation of current 04/16/2019 MED GEN ([facility] medications (procedure) 12:00:00 AM CARIDAD Chavarria) Documentation of current 04/16/2019 MED GEN ([facility] (procedure) 12:00:00 AM CARIDAD Chavarria) Documentation of current 04/16/2019 MED GEN ([facility] medications (procedure) 12:00:00 AM CARIDAD Chavarria) Documentation of current 04/16/2019 MED GEN ([facility] medications (procedure) 12:00:00 AM CARIDAD Chavarria) Documentation of current 04/16/2019 MED GEN ([facility] medications (procedure) 12:00:00 AM CARIDAD Chavarria) Documentation of current 04/16/2019 MED GEN ([facility] medications (procedure) 12:00:00 AM RJ estrada, CARIDAD) Documentation of current 04/16/2019 MED GEN ([facility] (procedure) 12:00:00 AM CARIDAD Chavarria) Documentation of current 04/16/2019 MED GEN ([facility] (procedure) 12:00:00 AM [facility] estrada, PC) Documentation of current 04/16/2019 MED GEN ([facility] medications (procedure) 12:00:00 AM [facility] estrada [facility]) Documentation of current 04/16/2019 MED GEN ([facility] medications (procedure) 12:00:00 AM [facility] estrada, PC) Documentation of current 04/16/2019 MED GEN ([facility] (procedure) 12:00:00 AM R[facility] estrada PC) Documentation of current 04/16/2019 MED GEN ([facility] medications (procedure) 12:00:00 AM RJ estrada, PC) Documentation of current 04/16/2019 MED GEN ([facility] (procedure) 12:00:00 AM CARIDAD Chavarria) Documentation of current 04/16/2019 MED GEN ([facility] medications (procedure) 12:00:00 AM [facility] estrada, PC) Documentation of current 04/16/2019 MED GEN ([facility] medications (procedure) 12:00:00 AM CARIDAD Chavarria) Documentation of current 04/16/2019 MED GEN ([facility] medications (procedure) 12:00:00 AM CARIDAD Chavarria) OFFICE OUTPATIENT VISIT 04/16/2019 MEDG EN ([facility] 15 MINUTES 12:00:00 AM [facility] Wright PC) COLLECTION VENOUS BLOOD 04/16/2019 MEDG EN ([facility] VENIPUNCTURE 12:00:00 AM RJ Wright, PC) Documentation of current 04/16/2019 MED GEN ([facility] medications (procedure) 12:00:00 AM [facility] estrada PC) Documentation of current 04/16/2019 MED GEN ([facility] (procedure) 12:00:00 AM RJ estrada, PC) Documentation of current 04/16/2019 MED GEN ([facility] medications (procedure) 12:00:00 AM RJ estrada, PC) Documentation of current 04/16/2019 MED GEN ([facility] medications (procedure) 12:00:00 AM RJ estrada, CARIDAD) Documentation of current 04/16/2019 MED GEN ([facility] (procedure) 12:00:00 AM RJ estrada, CARIDAD) Documentation of current 04/16/2019 MED GEN ([facility] (procedure) 12:00:00 AM [facility] estrada, PC) Documentation of current 04/16/2019 MED GEN ([facility] (procedure) 12:00:00 AM RJ estrada, PC) Documentation of current 04/16/2019 MED GEN ([facility] (procedure) 12:00:00 AM RJ estrada, PC) Documentation of current 04/16/2019 MED GEN ([facility] (procedure) 12:00:00 AM RJ estrada, PC) Documentation of current 04/16/2019 MED GEN ([facility] medications (procedure) 12:00:00 AM RJ estrada, PC) Documentation of current 04/16/2019 MED GEN ([facility] (procedure) 12:00:00 AM RJ estrada, PC) Documentation of current 04/16/2019 MED GEN ([facility] medications (procedure) 12:00:00 AM RJ estrada, PC) Documentation of current 04/16/2019 MED GEN ([facility] medications (procedure) 12:00:00 AM CARIDAD Chavarria) Documentation of current 04/16/2019 MED GEN ([facility] medications (procedure) 12:00:00 AM [facility] estr[facility]) Documentation of current 04/16/2019 MED GEN ([facility] medications (procedure) 12:00:00 AM RJ estrada, PC) Documentation of current 04/16/2019 MED GEN ([facility] medications (procedure) 12:00:00 AM RJ estrada, PC) Documentation of current 04/16/2019 MED GEN ([facility] (procedure) 12:00:00 AM RJ estrada, PC) Documentation of current 04/16/2019 MED GEN ([facility] medications (procedure) 12:00:00 AM RJ estrada, PC) Documentation of current 04/16/2019 MED GEN ([facility] medications (procedure) 12:00:00 AM CARIDAD Chavarria) Documentation of current 04/16/2019 MED GEN ([facility] medications (procedure) 12:00:00 AM CARIDAD Chavarria) OFFICE OUTPATIENT VISIT 04/16/2019 MEDG EN ([facility] 15 MINUTES 12:00:00 AM CARIDAD Butler) COLLECTION VENOUS BLOOD 04/16/2019 MEDG EN ([facility] VENIPUNCTURE 12:00:00 AM CARIDAD Butler) Documentation of current 04/16/2019 MED GEN ([facility] medications (procedure) 12:00:00 AM CARIDAD Chavarria) Documentation of current 04/16/2019 MED GEN ([facility] medications (procedure) 12:00:00 AM CARIDAD Chavarria) Documentation of current 04/16/2019 MED GEN ([facility] medications (procedure) 12:00:00 AM CARIDAD Chavarria) Documentation of current 04/16/2019 MED GEN ([facility] medications (procedure) 12:00:00 AM CARIDAD Chavarria) Documentation of current 04/16/2019 MED GEN ([facility] medications (procedure) 12:00:00 AM CARIDAD Chavarria) Documentation of current 04/16/2019 MED GEN ([facility] medications (procedure) 12:00:00 AM CARIDAD Chavarria) Documentation of current 04/16/2019 MED GEN ([facility] medications (procedure) 12:00:00 AM CARIDAD Chavarria) Documentation of current 04/16/2019 MED GEN ([facility] medications (procedure) 12:00:00 AM CARIDAD Chavarria) Documentation of current 04/16/2019 MED GEN ([facility] medications (procedure) 12:00:00 AM CARIDAD Chavarria) Documentation of current 04/16/2019 MED GEN ([facility] (procedure) 12:00:00 AM CARIDAD Chavarria) Documentation of current 04/16/2019 MED GEN ([facility] medications (procedure) 12:00:00 AM CARIDAD Chavarria) Documentation of current 04/16/2019 MED GEN ([facility] medications (procedure) 12:00:00 AM CARIDAD Chavarria) Documentation of current 04/16/2019 MED GEN ([facility] medications (procedure) 12:00:00 AM CARIDAD Chavarria) Documentation of current 04/16/2019 MED GEN ([facility] medications (procedure) 12:00:00 AM CARIDAD Chavarria) Documentation of current 04/16/2019 MED GEN ([facility] medications (procedure) 12:00:00 AM CARIDAD Chavarria) Documentation of current 04/16/2019 MED GEN ([facility] medications (procedure) 12:00:00 AM CARIDAD Chavarria) Documentation of current 04/16/2019 MED GEN ([facility] medications (procedure) 12:00:00 AM CARIDAD Chavarria) Documentation of current 04/16/2019 MED GEN ([facility] medications (procedure) 12:00:00 AM CARIDAD Chavarria) Documentation of current 04/16/2019 MED GEN ([facility] medications (procedure) 12:00:00 AM CARIDAD Chavarria) Documentation of current 04/16/2019 MED GEN ([facility] medications (procedure) 12:00:00 AM CARIDAD Chavarria) OFFICE OUTPATIENT VISIT 04/16/2019 MEDG EN ([facility] 15 MINUTES 12:00:00 AM CARIDAD Butler) COLLECTION VENOUS BLOOD 04/16/2019 MEDG EN ([facility] VENIPUNCTURE 12:00:00 AM CARIDAD Butler) Documentation of current 04/16/2019 MED GEN ([facility] medications (procedure) 12:00:00 AM CARIDAD Chavarria) Documentation of current 04/16/2019 MED GEN ([facility] medications (procedure) 12:00:00 AM CARIDAD Chavarria) Documentation of current 04/16/2019 MED GEN ([facility] medications (procedure) 12:00:00 AM CARIDAD Chavarria) Documentation of current 04/16/2019 MED GEN ([facility] medications (procedure) 12:00:00 AM CARIDAD Chavarria) Documentation of current 04/16/2019 MED GEN ([facility] medications (procedure) 12:00:00 AM CARIDAD Chavarria) Documentation of current 04/16/2019 MED GEN ([facility] medications (procedure) 12:00:00 AM CARIDAD Chavarria) Documentation of current 04/16/2019 MED GEN ([facility] medications (procedure) 12:00:00 AM CARIDAD Chavarria) Documentation of current 04/16/2019 MED GEN ([facility] medications (procedure) 12:00:00 AM CARIDAD Chavarria) Documentation of current 04/16/2019 MED GEN ([facility] medications (procedure) 12:00:00 AM CARIDAD Chavarria) Documentation of current 04/16/2019 MED GEN ([facility] medications (procedure) 12:00:00 AM CARIDAD Chavarria) Documentation of current 04/16/2019 MED GEN ([facility] medications (procedure) 12:00:00 AM CARIDAD Chavarria) Documentation of current 04/16/2019 MED GEN ([facility] medications (procedure) 12:00:00 AM CARIDAD Chavarria) Documentation of current 04/16/2019 MED GEN ([facility] medications (procedure) 12:00:00 AM [facility] estrada, PC) Documentation of current 04/16/2019 MED GEN ([facility] medications (procedure) 12:00:00 AM CARIDAD Chavarria) Documentation of current 04/16/2019 MED GEN ([facility] medications (procedure) 12:00:00 AM [facility] estrada, PC) Documentation of current 04/16/2019 MED GEN ([facility] medications (procedure) 12:00:00 AM CARIDAD Chavarria) Documentation of current 04/16/2019 MED GEN ([facility] medications (procedure) 12:00:00 AM CARIDAD Chavarria) Documentation of current 04/16/2019 MED GEN ([facility] medications (procedure) 12:00:00 AM CARIDAD Chavarria) Documentation of current 04/16/2019 MED GEN ([facility] medications (procedure) 12:00:00 AM [facility] estrada, PC) Documentation of current 04/16/2019 MED GEN ([facility] medications (procedure) 12:00:00 AM CARIDAD Chavarria) OFFICE OUTPATIENT VISIT 04/16/2019 MEDG EN ([facility] 15 MINUTES 12:00:00 AM RJ Wright, CARIDAD) COLLECTION VENOUS BLOOD 04/16/2019 MEDG EN ([facility] VENIPUNCTURE 12:00:00 AM RJ Wright, PC) Documentation of current 04/16/2019 MED GEN ([facility] medications (procedure) 12:00:00 AM RJ estrada, CARIDAD) Documentation of current 04/16/2019 MED GEN ([facility] medications (procedure) 12:00:00 AM RJ estrada, CARIDAD) Documentation of current 04/16/2019 MED GEN ([facility] medications (procedure) 12:00:00 AM [facility]J estrada, PC) Documentation of current 04/16/2019 MED GEN ([facility] medications (procedure) 12:00:00 AM RJ estrada, PC) Documentation of current 04/16/2019 MED GEN ([facility] medications (procedure) 12:00:00 AM RJ estrada, PC) Documentation of current 04/16/2019 MED GEN ([facility] medications (procedure) 12:00:00 AM RJ estrada, PC) Documentation of current 04/16/2019 MED GEN ([facility] medications (procedure) 12:00:00 AM RJ estrada, PC) Documentation of current 04/16/2019 MED GEN ([facility] medications (procedure) 12:00:00 AM RJ estrada, PC) Documentation of current 04/16/2019 MED GEN ([facility] medications (procedure) 12:00:00 AM JR estrada, PC) Documentation of current 04/16/2019 MED GEN ([facility] medications (procedure) 12:00:00 AM RJ estrada PC) Documentation of current 04/16/2019 MED GEN ([facility] medications (procedure) 12:00:00 AM [facility] estrada PC) Documentation of current 04/16/2019 MED GEN ([facility] medications (procedure) 12:00:00 AM RJ estrada, PC) Documentation of current 04/16/2019 MED GEN ([facility] medications (procedure) 12:00:00 AM RJ estrada, PC) Documentation of current 04/16/2019 MED GEN ([facility] medications (procedure) 12:00:00 AM RJ estrada, PC) Documentation of current 04/16/2019 MED GEN ([facility] medications (procedure) 12:00:00 AM RJ estrada, PC) Documentation of current 04/16/2019 MED GEN ([facility] medications (procedure) 12:00:00 AM CARIDAD Chavarria) Documentation of current 04/16/2019 MED GEN ([facility] medications (procedure) 12:00:00 AM CARIDAD Chavarria) Documentation of current 04/16/2019 MED GEN ([facility] medications (procedure) 12:00:00 AM CARIDAD Chavarria) Documentation of current 04/16/2019 MED GEN ([facility] medications (procedure) 12:00:00 AM CARIDAD Chavarria) Documentation of current 04/16/2019 MED GEN ([facility] medications (procedure) 12:00:00 AM RJ estrada, CARIDAD) Documentation of current 04/16/2019 MED GEN ([facility] medications (procedure) 12:00:00 AM CARIDAD Chavarria) Documentation of current 04/16/2019 MED GEN ([facility] medications (procedure) 12:00:00 AM CARIDAD Chavarria) Documentation of current 04/16/2019 MED GEN ([facility] medications (procedure) 12:00:00 AM CARIDAD Chavarria) Documentation of current 04/16/2019 MED GEN ([facility] medications (procedure) 12:00:00 AM RJ estrada, CARIDAD) Documentation of current 04/16/2019 MED GEN ([facility] medications (procedure) 12:00:00 AM CARIDAD Chavarria) Documentation of current 04/16/2019 MED GEN ([facility] medications (procedure) 12:00:00 AM CARIDAD Chavarria) Documentation of current 04/16/2019 MED GEN ([facility] medications (procedure) 12:00:00 AM CARIDAD Chavarria) Documentation of current 04/16/2019 MED GEN ([facility] medications (procedure) 12:00:00 AM CARIDAD Chavarria) Documentation of current 04/16/2019 MED GEN ([facility] medications (procedure) 12:00:00 AM CARIDAD Chavarria) Documentation of current 04/16/2019 MED GEN ([facility] medications (procedure) 12:00:00 AM RJ estrada, CARIDAD) Documentation of current 04/16/2019 MED GEN ([facility] medications (procedure) 12:00:00 AM RJ estrada, CARIDAD) Documentation of current 04/16/2019 MED GEN ([facility] medications (procedure) 12:00:00 AM RJ estrada, CARIDAD) Documentation of current 04/16/2019 MED GEN ([facility] medications (procedure) 12:00:00 AM CARIDAD Chavarria) Documentation of current 04/16/2019 MED GEN ([facility] medications (procedure) 12:00:00 AM [facility] estrada PC) Documentation of current 04/16/2019 MED GEN ([facility] medications (procedure) 12:00:00 AM CARIDAD Chavarria) Documentation of current 04/16/2019 MED GEN ([facility] medications (procedure) 12:00:00 AM RJ estrada, PC) Documentation of current 04/16/2019 MED GEN ([facility] medications (procedure) 12:00:00 AM CARIDAD Chavarria) Documentation of current 04/16/2019 MED GEN ([facility] medications (procedure) 12:00:00 AM CARIDAD Chavarria) Documentation of current 04/16/2019 MED GEN ([facility] medications (procedure) 12:00:00 AM CARIDAD Chavarria) Documentation of current 04/16/2019 MED GEN ([facility] medications (procedure) 12:00:00 AM CARIDAD Chavarria) OFFICE OUTPATIENT VISIT 04/16/2019 MEDG EN ([facility] 15 MINUTES 12:00:00 AM RJ Wright, PC) COLLECTION VENOUS BLOOD 04/16/2019 MEDG EN ([facility] VENIPUNCTURE 12:00:00 AM RJ Wright, PC) Documentation of current 04/16/2019 MED GEN ([facility] medications (procedure) 12:00:00 AM CARIDAD Chavarria) Documentation of current 04/16/2019 MED GEN ([facility] medications (procedure) 12:00:00 AM RJ estrada, PC) Documentation of current 04/16/2019 MED GEN ([facility] medications (procedure) 12:00:00 AM CARIDAD Chavarria) Documentation of current 04/16/2019 MED GEN ([facility] medications (procedure) 12:00:00 AM [facility] estrada [facility]) Documentation of current 04/16/2019 MED GEN ([facility] medications (procedure) 12:00:00 AM CARIDAD Chavarria) Documentation of current 04/16/2019 MED GEN ([facility] medications (procedure) 12:00:00 AM CARIDAD Chavarria) Documentation of current 04/16/2019 MED GEN ([facility] medications (procedure) 12:00:00 AM CARIDAD Chavarria) Documentation of current 04/16/2019 MED GEN ([facility] medications (procedure) 12:00:00 AM [facility] estrada PC) Documentation of current 04/16/2019 MED GEN ([facility] medications (procedure) 12:00:00 AM CARIDAD Chavarria) Documentation of current 04/16/2019 MED GEN ([facility] medications (procedure) 12:00:00 AM [facility] estrada PC) Documentation of current 04/16/2019 MED GEN ([facility] medications (procedure) 12:00:00 AM CARIDAD Chavarria) Documentation of current 04/16/2019 MED GEN ([facility] medications (procedure) 12:00:00 AM RJ estrada PC) Documentation of current 04/16/2019 MED GEN ([facility] medications (procedure) 12:00:00 AM CARIDAD Chavarria) Documentation of current 04/16/2019 MED GEN ([facility] medications (procedure) 12:00:00 AM [facility] estrada PC) Documentation of current 04/16/2019 MED GEN ([facility] medications (procedure) 12:00:00 AM CARIDAD Chavarria) Documentation of current 04/16/2019 MED GEN ([facility] medications (procedure) 12:00:00 AM CARIDAD Chavarria) Documentation of current 04/16/2019 MED GEN ([facility] medications (procedure) 12:00:00 AM CARIDAD Chavarria) Documentation of current 04/16/2019 MED GEN ([facility] medications (procedure) 12:00:00 AM [facility] estrada PC) Documentation of current 04/16/2019 MED GEN ([facility] medications (procedure) 12:00:00 AM CARIDAD Chavarria) Documentation of current 04/16/2019 MED GEN ([facility] medications (procedure) 12:00:00 AM CARIDAD Chavarria) OFFICE OUTPATIENT VISIT 04/16/2019 MEDG EN ([facility] 15 MINUTES 12:00:00 AM CARIDAD Butler) COLLECTION VENOUS BLOOD 04/16/2019 MEDG EN ([facility] VENIPUNCTURE 12:00:00 AM CARIDAD Butler) Documentation of current 04/16/2019 MED GEN ([facility] medications (procedure) 12:00:00 AM CARIDAD Chavarria) Documentation of current 04/16/2019 MED GEN ([facility] medications (procedure) 12:00:00 AM CARIDAD Chavarria) Documentation of current 04/16/2019 MED GEN ([facility] medications (procedure) 12:00:00 AM CARIDAD Chavarria) Documentation of current 04/16/2019 MED GEN ([facility] medications (procedure) 12:00:00 AM CARIDAD Chavarria) Documentation of current 04/16/2019 MED GEN ([facility] medications (procedure) 12:00:00 AM CARIDAD Chavarria) Documentation of current 04/16/2019 MED GEN ([facility] medications (procedure) 12:00:00 AM CARIDAD Chavarria) Documentation of current 04/16/2019 MED GEN ([facility] medications (procedure) 12:00:00 AM CARIDAD Chavarria) Documentation of current 04/16/2019 MED GEN ([facility] medications (procedure) 12:00:00 AM CARIDAD Chavarria) Documentation of current 04/16/2019 MED GEN ([facility] medications (procedure) 12:00:00 AM CARIDAD Chavarria) Documentation of current 04/16/2019 MED GEN ([facility] medications (procedure) 12:00:00 AM CARIDAD Chavarria) Documentation of current 04/16/2019 MED GEN ([facility] medications (procedure) 12:00:00 AM CARIDAD Chavarria) Documentation of current 04/16/2019 MED GEN ([facility] medications (procedure) 12:00:00 AM CARIDAD Chavarria) Documentation of current 04/16/2019 MED GEN ([facility] medications (procedure) 12:00:00 AM CARIDAD Chavarria) Documentation of current 04/16/2019 MED GEN ([facility] medications (procedure) 12:00:00 AM CARIDAD Chavarria) Documentation of current 04/16/2019 MED GEN ([facility] medications (procedure) 12:00:00 AM CARIDAD Chavarria) Documentation of current 04/16/2019 MED GEN ([facility] medications (procedure) 12:00:00 AM CARIDAD Chavarria) Documentation of current 04/16/2019 MED GEN ([facility] medications (procedure) 12:00:00 AM CARIDAD Chavarria) Documentation of current 04/16/2019 MED GEN ([facility] medications (procedure) 12:00:00 AM CARIDAD Chavarria) Documentation of current 04/16/2019 MED GEN ([facility] medications (procedure) 12:00:00 AM CARIDAD Chavarria) Documentation of current 04/16/2019 MED GEN ([facility] medications (procedure) 12:00:00 AM CARIDAD Chavarria) OFFICE OUTPATIENT VISIT 04/16/2019 MEDG EN ([facility] 15 MINUTES 12:00:00 AM CARIDAD Butler) COLLECTION VENOUS BLOOD 04/16/2019 MEDG EN ([facility] VENIPUNCTURE 12:00:00 AM CARIDAD Butler) Documentation of current 04/16/2019 MED GEN ([facility] medications (procedure) 12:00:00 AM CARIDAD Chavarria) Documentation of current 04/16/2019 MED GEN ([facility] medications (procedure) 12:00:00 AM CARIDAD Chavarria) Documentation of current 04/16/2019 MED GEN ([facility] medications (procedure) 12:00:00 AM CARIDAD Chavarria) Documentation of current 04/16/2019 MED GEN ([facility] medications (procedure) 12:00:00 AM CARIDAD Chavarria) Documentation of current 04/16/2019 MED GEN ([facility] medications (procedure) 12:00:00 AM CARIDAD Chavarria) Documentation of current 04/16/2019 MED GEN ([facility] medications (procedure) 12:00:00 AM CARIDAD Chavarria) Documentation of current 04/16/2019 MED GEN ([facility] medications (procedure) 12:00:00 AM CARIDAD Chavarria) Documentation of current 04/16/2019 MED GEN ([facility] medications (procedure) 12:00:00 AM CARIDAD Chavarria) Documentation of current 04/16/2019 MED GEN ([facility] medications (procedure) 12:00:00 AM [facility]ada, PC) Documentation of current 04/16/2019 MED GEN ([facility] medications (procedure) 12:00:00 AM [facility]) Documentation of current 04/16/2019 MED GEN ([facility] (procedure) 12:00:00 AM JR estrada, PC) Documentation of current 04/16/2019 MED GEN ([facility] medications (procedure) 12:00:00 AM [facility] Documentation of current 04/16/2019 MED GEN ([facility]ica[facility] medications (procedure) 12:00:00 AM [facility]) Documentation of current 04/16/2019 MED GEN ([facility] medications (procedure) 12:00:00 AM [facility]) Documentation of current 04/16/2019 MED GEN ([facility]'s medications (procedure) 12:00:00 AM [facility]) Documentation of current 04/16/2019 MED GEN ([facility]'s medications (procedure) 12:00:00 AM [facility]) Documentation of current 04/16/2019 MED GEN ([facility] medications (procedure) 12:00:00 AM [facility]) Documentation of current 04/16/2019 MED GEN ([facility]'s medications (procedure) 12:00:00 AM [facility]) Documentation of current 04/16/2019 MED GEN ([facility]'s medications (procedure) 12:00:00 AM [facility]) Documentation of current 04/16/2019 MED GEN ([facility]ica's medications (procedure) 12:00:00 AM CARIDAD Chav[facility]ria) OFFICE OUTPATIENT VISIT 04/16/2019 MEDG EN ([facility] 15 MINUTES 12:00:00 AM [facility], [facility]) COLLECTION VENOUS BLOOD 04/16/2019 MEDG EN ([facility] VENIPUNCTURE 12:00:00 AM [facility] Wright, [facility]) Documentation of current 02/01/2019 MED GEN ([facility]'s medications (procedure) 12:00:00 AM MELISSA estrada, [facility]) Documentation of current 02/01/2019 MED GEN ([facility] medications (procedure) 12:00:00 AM [facility], [facility]) Documentation of current 02/01/2019 MED GEN ([facility]'s medications (procedure) 12:00:00 AM EDT [facility], [facility]) Documentation of current 02/01/2019 MED GEN ([facility]'s medications (procedure) 12:00:00 AM EDT M [facility], [facility]) Documentation of current 02/01/2019 MED GEN ([facility]'s medications (procedure) 12:00:00 AM EDT [facility]) Documentation of current 02/01/2019 MED GEN ([facility]'s medications (procedure) 12:00:00 AM EDT [facility], [facility]) Documentation of current 02/01/2019 MED GEN ([facility] medications (procedure) 12:00:00 AM [facility]) Documentation of current 02/01/2019 MED GEN ([facility]'s medications (procedure) 12:00:00 AM ED[facility]) Documentation of current 02/01/2019 MED GEN ([facility]'s medications (procedure) 12:00:00 AM EDT [facility]) Documentation of current 02/01/2019 MED GEN ([facility]'s medications (procedure) 12:00:00 AM EDT [facility]) Documentation of current 02/01/2019 MED GEN ([facility] medications (procedure) 12:00:00 AM ED[facility]) Documentation of current 02/01/2019 MED GEN ([facility]'s medications (procedure) 12:00:00 AM EDT [facility]) Documentation of current 02/01/2019 MED GEN ([facility]ica's medications (procedure) 12:00:00 AM EDT natalie, PC) Documentation of current 02/01/2019 MED GEN ([facility]'s medications (procedure) 12:00:00 AM EDT [facility]) Documentation of current 02/01/2019 MED GEN ([facility] medications (procedure) 12:00:00 AM EDT [facility], PC) Documentation of current 02/01/2019 MED GEN ([facility]'s medications (procedure) 12:00:00 AM EDT M [facility], PC) Documentation of current 02/01/2019 MED GEN ([facility]'s medications (procedure) 12:00:00 AM EDT [facility]) Documentation of current 02/01/2019 MED GEN ([facility] medications (procedure) 12:00:00 AM EDT edical, ) Documentation of current 02/01/2019 MED GEN ([facility]'s medications (procedure) 12:00:00 AM EDT edical, ) Documentation of current 02/01/2019 MED GEN ([facility]'s medications (procedure) 12:00:00 AM EDT edical, ) Documentation of current 02/01/2019 MED GEN ([facility]'s medications (procedure) 12:00:00 AM EDT edical, ) Documentation of current 02/01/2019 MED GEN ([facility]ica's medications (procedure) 12:00:00 AM EDT [facility], PC) Documentation of current 02/01/2019 MED GEN ([facility]procedure) [facility] current 02/01/2019 MED GEN (Jess[facility]'s medications (procedure) 12:00:00 [facility] Documentation of current 02/01/2019 MED GEN ([facility] medications (procedure) 12:00:00 [facility] OFFICE OUTPATIENT VISIT 02/01/2019 MEDG EN ([facility] 15 MINUTES 12:00:00 AM [facility], ) GLUC BLD GLUC MNTR DEV 02/01/2019 MEDGE N ([facility]'s CLEARED FDA SPEC HOME USE 12:00:00 AM [facility], ) COLLECTION VENOUS BLOOD 02/01/2019 MEDG EN ([facility] VENIPUNCTURE 12:00:00 AM [facility], ) Documentation of current 02/01/2019 MED GEN (Jessica's medications (procedure) 12:00:00 AM EDT [facility], PC) Documentation of current 02/01/2019 MED GEN ([facility]'s medications (procedure) 12:00:00 AM EDT [facility], PC) Documentation of current 02/01/2019 MED GEN ([facility]ica's medications (procedure) 12:00:00 AM EDT ed[facility], PC) Documentation of current 02/01/2019 MED GEN ([facility]'s medications (procedure) 12:00:00 AM EDT [facility], PC) Documentation of current 02/01/2019 MED GEN ([facility]'s medications (procedure) 12:00:00 AM EDT [facility], PC) Documentation of current 02/01/2019 MED GEN ([facility]'s medications (procedure) 12:00:00 AM EDT [facility]ical, PC) Documentation of current 02/01/2019 MED GEN ([facility]'s medications (procedure) 12:00:00 AM EDT [facility], [facility]) Documentation of current 02/01/2019 MED GEN ([facility]'s medications (procedure) 12:00:00 AM EDT [facility], PC) Documentation of current 02/01/2019 MED GEN ([facility]'s medications (procedure) 12:00:00 AM EDT [facility], [facility]) Documentation of current 02/01/2019 MED GEN ([facility]'s medications (procedure) 12:00:00 AM EDT [facility], [facility]) Documentation of current 02/01/2019 MED GEN ([facility] medications (procedure) 12:00:00 AM [facility]) Documentation of current 02/01/2019 MED GEN ([facility] medications (procedure) 12:00:00 AM [facility]) Documentation of current 02/01/2019 MED GEN ([facility]'s medications (procedure) 12:00:00 AM EDT [facility]) Documentation of current 02/01/2019 MED GEN ([facility]ica's medications (procedure) 12:00:00 AM EDT [facility]) Documentation of current 02/01/2019 MED GEN ([facility]'s medications (procedure) 12:00:00 AM EDT [facility], [facility]) Documentation of current 02/01/2019 MED GEN ([facility] medications (procedure) 12:00:00 AM EDT [facility], [facility]) Documentation of current 02/01/2019 MED GEN ([facility]'s medications (procedure) 12:00:00 AM EDT [facility], PC) Documentation of current 02/01/2019 MED GEN ([facility]'s medications (procedure) 12:00:00 AM EDT [facility], PC) Documentation of current 02/01/2019 MED GEN (Jessica's medications (procedure) 12:00:00 AM EDT [facility], [facility]) Documentation of current 02/01/2019 MED GEN ([facility]ica's medications (procedure) 12:00:00 AM EDT edical, ) Documentation of current 02/01/2019 MED GEN (Jessica's medications (procedure) 12:00:00 AM EDT ed[facility], PC) Documentation of current 02/01/2019 MED GEN ([facility]'s medications (procedure) 12:00:00 AM EDT edical, PC) Documentation of current 02/01/2019 MED GEN ([facility]ica's medications (procedure) 12:00:00 AM EDT edical, PC) Documentation of current 02/01/2019 MED GEN (Jessica's medications (procedure) 12:00:00 [facility] of current 02/01/2019 MED GEN (Jessica's medications (procedure) 12:00:00 [facility] OFFICE OUTPATIENT VISIT 02/01/2019 MEDG EN ([facility]'s 15 MINUTES 12:00:00 AM [facility], ) GLUC BLD GLUC MNTR DEV 02/01/2019 MEDGE N ([facility]ica's CLEARED FDA SPEC HOME USE 12:00:00 AM [facility], ) COLLECTION VENOUS BLOOD 02/01/2019 MEDG EN ([facility]'s VENIPUNCTURE 12:00:00 AM [facility], ) Documentation of current 02/01/2019 MED GEN (Jessica's medications (procedure) 12:00:00 [facility] Documentation of current 02/01/2019 MED GEN (Jessica's medications (procedure) 12:00:00 AM EDT [facility], PC) Documentation of current 02/01/2019 MED GEN (Jessica's medications (procedure) 12:00:00 AM EDT edical, PC) Documentation of current 02/01/2019 MED GEN ([facility]'s medications (procedure) 12:00:00 AM EDT [facility], PC) Documentation of current 02/01/2019 MED GEN ([facility]ica's medications (procedure) 12:00:00 AM EDT [facility], PC) Documentation of current 02/01/2019 MED GEN ([facility]ica's medications (procedure) 12:00:00 AM EDT [facility], PC) Documentation of current 02/01/2019 MED GEN ([facility]ica's medications (procedure) 12:00:00 AM EDT natalie, PC) Documentation of current 02/01/2019 MED GEN ([facility]'s medications (procedure) 12:00:00 AM EDT natalie, PC) Documentation of current 02/01/2019 MED GEN ([facility] medications (procedure) 12:00:00 AM EDT [facility], [facility]) Documentation of current 02/01/2019 MED GEN ([facility]'s medications (procedure) 12:00:00 AM EDT natalie, PC) Documentation of current 02/01/2019 MED GEN ([facility] medications (procedure) 12:00:00 AM EDT natalie, PC) Documentation of current 02/01/2019 MED GEN ([facility]'s medications (procedure) 12:00:00 AM EDT [facility], [facility]) Documentation of current 02/01/2019 MED GEN ([facility] medications (procedure) 12:00:00 AM EDT natalie, PC) Documentation of current 02/01/2019 MED GEN ([facility] medications (procedure) 12:00:00 AM EDT natalie, PC) Documentation of current 02/01/2019 MED GEN ([facility]'s medications (procedure) 12:00:00 AM EDT natalei, PC) Documentation of current 02/01/2019 MED GEN ([facility]'s medications (procedure) 12:00:00 AM EDT natalie, PC) Documentation of current 02/01/2019 MED GEN ([facility] medications (procedure) 12:00:00 AM EDT natalie, PC) Documentation of current 02/01/2019 MED GEN ([facility]'s medications (procedure) 12:00:00 AM EDT natalie, PC) Documentation of current 02/01/2019 MED GEN ([facility]'s medications (procedure) 12:00:00 AM EDT [facility], PC) Documentation of current 02/01/2019 MED GEN ([facility]'s medications (procedure) 12:00:00 AM EDT natalie, PC) Documentation of current 02/01/2019 MED GEN ([facility] medications (procedure) 12:00:00 AM EDT [facility], [facility]) Documentation of current 02/01/2019 MED GEN ([facility]'s medications (procedure) 12:00:00 AM EDT [facility], PC) Documentation of current 02/01/2019 MED GEN ([facility]'s medications (procedure) 12:00:00 AM EDT edical, PC) Documentation of current 02/01/2019 MED GEN ([facility]'s medications (procedure) 12:00:00 AM EDT ed[facility], PC) Documentation of current 02/01/2019 MED GEN (Jessica's medications (procedure) 12:00:00 AM EDT [facility], PC) OFFICE OUTPATIENT VISIT 02/01/2019 MEDG EN ([facility]ica's 15 MINUTES 12:00:00 AM [facility], ) GLUC BLD GLUC MNTR DEV 02/01/2019 MEDGE N ([facility]ica's CLEARED FDA SPEC HOME USE 12:00:00 AM [facility], ) COLLECTION VENOUS BLOOD 02/01/2019 MEDG EN ([facility]'s VENIPUNCTURE 12:00:00 AM [facility], ) Documentation of current 02/01/2019 MED GEN (Jessica's medications (procedure) 12:00:00 AM EDT [facility], [facility]) Documentation of current 02/01/2019 MED GEN (Jessica's medications (procedure) 12:00:00 AM EDT [facility], PC) Documentation of current 02/01/2019 MED GEN (Jessica's medications (procedure) 12:00:00 AM EDT ed[facility], PC) Documentation of current 02/01/2019 MED GEN (Jessica's medications (procedure) 12:00:00 AM EDT ed[facility], PC) Documentation of current 02/01/2019 MED GEN (Jessica's medications (procedure) 12:00:00 AM EDT edical, PC) Documentation of current 02/01/2019 MED GEN (Jessica's medications (procedure) 12:00:00 AM EDT edical, PC) Documentation of current 02/01/2019 MED GEN (Jessica's medications (procedure) 12:00:00 AM EDT edical, PC) Documentation of current 02/01/2019 MED GEN (Jessica's medications (procedure) 12:00:00 AM EDT edical, PC) Documentation of current 02/01/2019 MED GEN ([facility]ica's medications (procedure) 12:00:00 AM EDT edical, PC) Documentation of current 02/01/2019 MED GEN (Jessica's medications (procedure) 12:00:00 AM EDT ed[facility], PC) Documentation of current 02/01/2019 MED GEN (Jessica's medications (procedure) 12:00:00 AM EDT [facility], PC) Documentation of current 02/01/2019 MED GEN (Jessica's medications (procedure) 12:00:00 AM EDT [facility], PC) OFFICE OUTPATIENT VISIT 02/01/2019 MEDG EN ([facility]ica's 15 MINUTES 12:00:00 AM [facility], ) GLUC BLD GLUC MNTR DEV 02/01/2019 MEDGE N ([facility]'s CLEARED FDA SPEC HOME USE 12:00:00 AM EDT Medical, PC) COLLECTION VENOUS BLOOD 02/01/2019 MEDG EN ([facility]'s VENIPUNCTURE 12:00:00 AM [facility], ) Documentation of current 02/01/2019 MED GEN (Jessica's medications (procedure) 12:00:00 AM EDT edical, PC) Documentation of current 02/01/2019 MED GEN (Jessica's medications (procedure) 12:00:00 AM EDT edical, PC) Documentation of current 02/01/2019 MED GEN (Jessica's medications (procedure) 12:00:00 AM EDT edical, PC) Documentation of current 02/01/2019 MED GEN (Jessica's medications (procedure) 12:00:00 AM EDT edical, PC) Documentation of current 02/01/2019 MED GEN (Jessica's medications (procedure) 12:00:00 AM EDT edical, PC) Documentation of current 02/01/2019 MED GEN (Jessica's medications (procedure) 12:00:00 AM EDT edical, PC) Documentation of current 02/01/2019 MED GEN (Jessica's medications (procedure) 12:00:00 AM EDT edical, PC) Documentation of current 02/01/2019 MED GEN (Jessica's medications (procedure) 12:00:00 AM EDT edical, PC) Documentation of current 02/01/2019 MED GEN (Jessica's medications (procedure) 12:00:00 AM EDT edical, PC) Documentation of current 02/01/2019 MED GEN ([facility]ica's medications (procedure) 12:00:00 AM EDT [facility], [facility]) Documentation of current 02/01/2019 MED GEN (Jessica's medications (procedure) 12:00:00 AM EDT [facility], PC) Documentation of current 02/01/2019 MED GEN (Jessica's medications (procedure) 12:00:00 AM EDT edical, PC) Documentation of current 02/01/2019 MED GEN (Jessica's medications (procedure) 12:00:00 AM EDT edical, PC) Documentation of current 02/01/2019 MED GEN (Jessica's medications (procedure) 12:00:00 AM EDT edical, PC) Documentation of current 02/01/2019 MED GEN (Jessica's medications (procedure) 12:00:00 AM EDT edical, PC) Documentation of current 02/01/2019 MED GEN (Jessica's medications (procedure) 12:00:00 AM EDT [facility], PC) Documentation of current 02/01/2019 MED GEN (Jessica's medications (procedure) 12:00:00 AM EDT [facility], PC) Documentation of current 02/01/2019 MED GEN (Jessica's medications (procedure) 12:00:00 AM EDT edical, PC) Documentation of current 02/01/2019 MED GEN (Jessica's medications (procedure) 12:00:00 AM EDT edical, PC) Documentation of current 02/01/2019 MED GEN (Jessica's medications (procedure) 12:00:00 AM EDT [facility], PC) Documentation of current 02/01/2019 MED GEN (Jessica's medications (procedure) 12:00:00 AM EDT edical, PC) Documentation of current 02/01/2019 MED GEN (Jessica's medications (procedure) 12:00:00 AM EDT edical, PC) Documentation of current 02/01/2019 MED GEN (Jessica's medications (procedure) 12:00:00 AM EDT edical, PC) Documentation of current 02/01/2019 MED GEN (Jessica's medications (procedure) 12:00:00 AM EDT [facility], PC) Documentation of current 02/01/2019 MED GEN (Jessica's medications (procedure) 12:00:00 AM EDT edical, ) Documentation of current 02/01/2019 MED GEN (Jessica's medications (procedure) 12:00:00 AM EDT edical, ) Documentation of current 02/01/2019 MED GEN ([facility] medications (procedure) [facility] current 02/01/2019 MED GEN (Jessica's medications (procedure) 12:00:00 AM [facility] Documentation of current 02/01/2019 MED GEN (Jessica's medications (procedure) 12:00:00 AM [facility], [facility] Documentation of current 02/01/2019 MED GEN (Jessica's medications (procedure) 12:00:00 AM [facility] Documentation of current 02/01/2019 MED GEN (Jessica's medications (procedure) 12:00:00 AM EDT edical, ) Documentation of current 02/01/2019 MED GEN (Jessica's medications (procedure) 12:00:00 AM [facility] Documentation of current 02/01/2019 MED GEN (Jessica's medications (procedure) 12:00:00 AM EDT edical, ) Documentation of current 02/01/2019 MED GEN (Jessica's medications (procedure) 12:00:00 AM T [facility] Documentation of current 02/01/2019 MED GEN (Jessica's medications (procedure) 12:00:00 AM EDT edical, ) Documentation of current 02/01/2019 MED GEN (Jessica's medications (procedure) 12:00:00 AM [facility] Documentation of current 02/01/2019 MED GEN ([facility] VISIT 02/01/2019 MEDG EN ([facility]'s 15 MINUTES 12:00:00 AM [facility], ) GLUC BLD GLUC MNTR DEV 02/01/2019 MEDGE N ([facility]ica's CLEARED FDA SPEC HOME USE 12:00:00 AM [facility], ) COLLECTION VENOUS BLOOD 02/01/2019 MEDG EN ([facility] VENIPUNCTURE 12:00:00 AM [facility], [facility]) Documentation of current 02/01/2019 MED GEN (Jessica's medications (procedure) 12:00:00 AM EDT edical, PC) Documentation of current 02/01/2019 MED GEN ([facility]ica's medications (procedure) 12:00:00 AM EDT edical, PC) Documentation of current 02/01/2019 MED GEN ([facility]ica's medications (procedure) 12:00:00 AM EDT edical, PC) Documentation of current 02/01/2019 MED GEN ([facility]ica's medications (procedure) 12:00:00 AM EDT edical, PC) Documentation of current 02/01/2019 MED GEN ([facility]ica's medications (procedure) 12:00:00 AM EDT edical, PC) Documentation of current 02/01/2019 MED GEN (Jessica's medications (procedure) 12:00:00 AM EDT edical, PC) Documentation of current 02/01/2019 MED GEN ([facility]ica's medications (procedure) 12:00:00 AM EDT edical, PC) Documentation of current 02/01/2019 MED GEN (Jessica's medications (procedure) 12:00:00 AM EDT edical, PC) Documentation of current 02/01/2019 MED GEN (Jessica's medications (procedure) 12:00:00 AM EDT edical, PC) Documentation of current 02/01/2019 MED GEN ([facility]ica's medications (procedure) 12:00:00 AM EDT edical, PC) Documentation of current 02/01/2019 MED GEN ([facility] medications (procedure) 12:00:00 AM EDT edical, PC) Documentation of current 02/01/2019 MED GEN ([facility]ica's medications (procedure) 12:00:00 AM EDT edical, PC) Documentation of current 02/01/2019 MED GEN ([facility]ica[facility] medications (procedure) 12:00:00 AM EDT edical, PC) Documentation of current 02/01/2019 MED GEN ([facility]ica[facility] medications (procedure) 12:00:00 AM EDT edical, PC) Documentation of current 02/01/2019 MED GEN (Jessica's medications (procedure) 12:00:00 AM EDT edical, ) Documentation of current 02/01/2019 MED GEN (Jessica's medications (procedure) 12:00:00 AM EDT edical, ) Documentation of current 02/01/2019 MED GEN (Jessica's medications (procedure) 12:00:00 AM EDT [facility], ) Documentation of current 02/01/2019 MED GEN (Jessica's medications (procedure) 12:00:00 [facility] Documentation of current 02/01/2019 MED GEN (Jessica's medications (procedure) 12:00:00 AM EDT [facility], ) Documentation of current 02/01/2019 MED GEN (Jessica's medications (procedure) 12:00:00 AM [facility] Documentation of current 02/01/2019 MED GEN (Jessica's medications (procedure) 12:00:00 AM [facility] Documentation of current 02/01/2019 MED GEN (Jessica's medications (procedure) 12:00:00 AM EDT [facility], ) Documentation of current 02/01/2019 MED GEN (Jessica's medications (procedure) 12:00:00 AM T [facility], ) Documentation of current 02/01/2019 MED GEN (Jessica's medications (procedure) 12:00:00 AM EDT [facility], ) OFFICE OUTPATIENT VISIT 02/01/2019 MEDG EN ([facility]'s 15 MINUTES 12:00:00 AM [facility], ) GLUC BLD GLUC MNTR DEV 02/01/2019 MEDGE N ([facility]'s CLEARED FDA SPEC HOME USE 12:00:00 AM [facility], ) COLLECTION VENOUS BLOOD 02/01/2019 MEDG EN ([facility]'s VENIPUNCTURE 12:00:00 AM [facility], ) Documentation of current 02/01/2019 MED GEN (Jessica's medications (procedure) 12:00:00 AM EDT [facility], ) Documentation of current 02/01/2019 MED GEN (Jessica's medications (procedure) 12:00:00 [facility] Documentation of current 02/01/2019 MED GEN (Jessica's medications (procedure) 12:00:00 AM EDT M [facility], PC) Documentation of current 02/01/2019 MED GEN ([facility]ica's medications (procedure) 12:00:00 AM EDT [facility], [facility]) Documentation of current 02/01/2019 MED GEN ([facility] medications (procedure) 12:00:00 AM EDT edical, PC) Documentation of current 02/01/2019 MED GEN ([facility] medications (procedure) 12:00:00 AM EDT [facility], PC) Documentation of current 02/01/2019 MED GEN ([facility] medications (procedure) 12:00:00 AM EDT [facility], PC) Documentation of current 02/01/2019 MED GEN ([facility] medications (procedure) 12:00:00 AM EDT [facility], PC) Documentation of current 02/01/2019 MED GEN ([facility] medications (procedure) 12:00:00 AM EDT [facility], PC) Documentation of current 02/01/2019 MED GEN ([facility] medications (procedure) 12:00:00 AM EDT natalie, PC) Documentation of current 02/01/2019 MED GEN ([facility] medications (procedure) 12:00:00 AM EDT [facility], PC) Documentation of current 02/01/2019 MED GEN ([facility] medications (procedure) 12:00:00 AM EDT [facility], PC) Documentation of current 02/01/2019 MED GEN ([facility] medications (procedure) 12:00:00 AM EDT [facility], PC) Documentation of current 02/01/2019 MED GEN ([facility] medications (procedure) 12:00:00 AM EDT natalie, PC) Documentation of current 02/01/2019 MED GEN ([facility] medications (procedure) 12:00:00 AM EDT [facility], PC) Documentation of current 02/01/2019 MED GEN ([facility] medications (procedure) 12:00:00 AM EDT edical, PC) Documentation of current 02/01/2019 MED GEN ([facility] medications (procedure) 12:00:00 AM EDT M [facility], PC) Documentation of current 02/01/2019 MED GEN ([facility]ica[facility] medications (procedure) 12:00:00 AM EDT [facility], PC) Documentation of current 02/01/2019 MED GEN ([facility] medications (procedure) 12:00:00 AM EDT edical, PC) Documentation of current 02/01/2019 MED GEN ([facility] medications (procedure) 12:00:00 AM EDT edical, PC) Documentation of current 02/01/2019 MED GEN ([facility] medications (procedure) 12:00:00 AM EDT edical, PC) Documentation of current 02/01/2019 MED GEN (Jessica's medications (procedure) 12:00:00 AM EDT edical, PC) Documentation of current 02/01/2019 MED GEN (Jessica[facility] medications (procedure) 12:00:00 AM EDT edical, PC) Documentation of current 02/01/2019 MED GEN (Jessica's medications (procedure) 12:00:00 AM EDT edical, PC) OFFICE OUTPATIENT VISIT 02/01/2019 MEDG EN ([facility] 15 MINUTES 12:00:00 AM [facility], ) GLUC BLD GLUC MNTR DEV 02/01/2019 MEDGE N ([facility]ica's CLEARED FDA SPEC HOME USE 12:00:00 AM [facility]) COLLECTION VENOUS BLOOD 02/01/2019 MEDG EN ([facility]ica's VENIPUNCTURE 12:00:00 AM [facility], ) Documentation of current 02/01/2019 MED GEN (Jessica's medications (procedure) 12:00:00 AM EDT edical, PC) Documentation of current 02/01/2019 MED GEN (Jessica's medications (procedure) 12:00:00 AM EDT edical, PC) Documentation of current 02/01/2019 MED GEN (Jessica's medications (procedure) 12:00:00 AM EDT edical, PC) Documentation of current 02/01/2019 MED GEN (Jessica's medications (procedure) 12:00:00 AM EDT edical, PC) Documentation of current 02/01/2019 MED GEN (Jessica's medications (procedure) 12:00:00 AM EDT edical, PC) Documentation of current 02/01/2019 MED GEN (Jessica's medications (procedure) 12:00:00 AM EDT edical, PC) Documentation of current 02/01/2019 MED GEN (Jessica's medications (procedure) 12:00:00 AM EDT [facility], PC) Documentation of current 02/01/2019 MED GEN (Jessica's medications (procedure) 12:00:00 AM EDT edical, PC) Documentation of current 02/01/2019 MED GEN (Jessica's medications (procedure) 12:00:00 AM EDT edical, PC) Documentation of current 02/01/2019 MED GEN (Jessica's medications (procedure) 12:00:00 AM EDT edical, PC) Documentation of current 02/01/2019 MED GEN (Jessica's medications (procedure) 12:00:00 AM EDT edical, PC) Documentation of current 02/01/2019 MED GEN (Jessica's medications (procedure) 12:00:00 AM EDT edical, PC) Documentation of current 02/01/2019 MED GEN (Jessica[facility] medications (procedure) 12:00:00 AM [facility] Documentation of current 02/01/2019 MED GEN ([facility]ica[facility] medications (procedure) 12:00:00 AM [facility]) Documentation of current 02/01/2019 MED GEN ([facility] medications (procedure) 12:00:00 AM [facility]) Documentation of current 02/01/2019 MED GEN ([facility] medications (procedure) 12:00:00 AM [facility]) Documentation of current 02/01/2019 MED GEN ([facility] medications (procedure) 12:00:00 AM [facility]) Documentation of current 02/01/2019 MED GEN ([facility] medications (procedure) 12:00:00 AM [facility]) Documentation of current 02/01/2019 MED GEN ([facility] medications (procedure) 12:00:00 AM [facility]) Documentation of current 02/01/2019 MED GEN ([facility] medications (procedure) 12:00:00 AM [facility], [facility]) Documentation of current 02/01/2019 MED GEN ([facility] medications (procedure) 12:00:00 AM [facility]) Documentation of current 02/01/2019 MED GEN ([facility] medications (procedure) 12:00:00 AM [facility]) Documentation of current 02/01/2019 MED GEN ([facility] medications (procedure) 12:00:00 AM [facility], [facility]) Documentation of current 02/01/2019 MED GEN ([facility] medications (procedure) 12:00:00 AM [facility]) Documentation of current 02/01/2019 MED GEN ([facility]ica[facility] medications (procedure) 12:00:00 AM [facility]) Documentation of current 02/01/2019 MED GEN ([facility] medications (procedure) 12:00:00 AM [facility]) Documentation of current 02/01/2019 MED GEN ([facility]ica[facility] medications (procedure) 12:00:00 AM [facility]) Documentation of current 02/01/2019 MED GEN ([facility] medications (procedure) 12:00:00 AM [facility]) Documentation of current 02/01/2019 MED GEN ([facility] medications (procedure) 12:00:00 AM [facility]) Documentation of current 02/01/2019 MED GEN ([facility] medications (procedure) 12:00:00 AM [facility]) Documentation of current 02/01/2019 MED GEN ([facility] medications (procedure) 12:00:00 AM [facility]) Documentation of current 02/01/2019 MED GEN ([facility]ica's medications (procedure) 12:00:00 AM [facility]) Documentation of current 02/01/2019 MED GEN ([facility] medications (procedure) 12:00:00 AM [facility]) Documentation of current 02/01/2019 MED GEN ([facility] medications (procedure) 12:00:00 AM [facility]) Documentation of current 02/01/2019 MED GEN ([facility]ica's medications (procedure) 12:00:00 AM [facility], [facility]) Documentation of current 02/01/2019 MED GEN ([facility]ica's medications (procedure) 12:00:00 AM [facility]) Documentation of current 02/01/2019 MED GEN ([facility]ica's medications (procedure) 12:00:00 AM EDT [facility], ) Documentation of current 02/01/2019 MED GEN (Jessica's medications (procedure) 12:00:00 AM EDT [facility]ical, ) Documentation of current 02/01/2019 MED GEN (Jessica's medications (procedure) 12:00:00 AM EDT [facility], ) Documentation of current 02/01/2019 MED GEN ([facility] medications (procedure) [facility] current 02/01/2019 MED GEN (Jessica's medications (procedure) 12:00:00 AM EDT [facility], ) Documentation of current 02/01/2019 MED GEN (Jessica's medications (procedure) 12:00:00 AM [facility] Documentation of current 02/01/2019 MED GEN (Jessica's medications (procedure) 12:00:00 AM [facility] Documentation of current 02/01/2019 MED GEN (Jessica's medications (procedure) 12:00:00 AM T [facility], ) Documentation of current 02/01/2019 MED GEN (Jessica's medications (procedure) 12:00:00 AM T [facility], ) Documentation of current 02/01/2019 MED GEN (Jessica's medications (procedure) 12:00:00 AM T [facility], ) Documentation of current 02/01/2019 MED GEN (Jessica's medications (procedure) 12:00:00 AM EDT [facility], ) Documentation of current 02/01/2019 MED GEN (Jessica's medications (procedure) 12:00:00 AM EDT [facility], ) OFFICE OUTPATIENT VISIT 02/01/2019 MEDG EN ([facility]'s 15 MINUTES 12:00:00 AM [facility], ) GLUC BLD GLUC MNTR DEV 02/01/2019 MEDGE N ([facility]ica's CLEARED FDA SPEC HOME USE 12:00:00 AM [facility], ) COLLECTION VENOUS BLOOD 02/01/2019 MEDG EN ([facility] VENIPUNCTURE 12:00:00 AM [facility], ) Documentation of current 02/01/2019 MED GEN (Jessica's medications (procedure) 12:00:00 AM [facility]T [facility]) Documentation of current 02/01/2019 MED GEN ([facility]ica's medications (procedure) 12:00:00 AM [facility]) Documentation of current 02/01/2019 MED GEN ([facility]ica's medications (procedure) 12:00:00 AM [facility]) Documentation of current 02/01/2019 MED GEN ([facility]ica's medications (procedure) 12:00:00 AM [facility]) Documentation of current 02/01/2019 MED GEN ([facility] medications (procedure) 12:00:00 AM [facility]) Documentation of current 02/01/2019 MED GEN ([facility]ica[facility] medications (procedure) 12:00:00 AM [facility]) Documentation of current 02/01/2019 MED GEN ([facility]ica's medications (procedure) 12:00:00 AM [facility]) Documentation of current 02/01/2019 MED GEN ([facility]ica's medications (procedure) 12:00:00 AM [facility]) Documentation of current 02/01/2019 MED GEN ([facility]'s medications (procedure) 12:00:00 AM [facility]) Documentation of current 02/01/2019 MED GEN ([facility] medications (procedure) 12:00:00 AM [facility]) Documentation of current 02/01/2019 MED GEN ([facility] medications (procedure) 12:00:00 AM [facility]) Documentation of current 02/01/2019 MED GEN ([facility] medications (procedure) 12:00:00 AM [facility]) Documentation of current 02/01/2019 MED GEN ([facility]'s medications (procedure) 12:00:00 AM [facility]) Documentation of current 02/01/2019 MED GEN ([facility]ica[facility] medications (procedure) 12:00:00 AM [facility]) Documentation of current 02/01/2019 MED GEN ([facility]ica's medications (procedure) 12:00:00 AM [facility]) Documentation of current 02/01/2019 MED GEN ([facility] medications (procedure) 12:00:00 AM [facility]) Documentation of current 02/01/2019 MED GEN ([facility]ica's medications (procedure) 12:00:00 AM [facility], [facility]) Documentation of current 02/01/2019 MED GEN (Jessica's medications (procedure) 12:00:00 AM [facility], ) Documentation of current 02/01/2019 MED GEN ([facility]ica's medications (procedure) 12:00:00 AM [facility]) Documentation of current 02/01/2019 MED GEN ([facility]ica[facility] medications (procedure) 12[facility]00:[facility] current 02/01/2019 MED GEN (Jessica's medications (procedure) 12:00:00 AM [facility] Documentation of current 02/01/2019 MED GEN (Jessica's medications (procedure) 12:00:00 AM [facility] Documentation of current 02/01/2019 MED GEN (Jessica's medications (procedure) 12:00:00 AM [facility] Documentation of current 02/01/2019 MED GEN (Jessica's medications (procedure) 12:00:00 AM EDT [facility], ) OFFICE OUTPATIENT VISIT 02/01/2019 MEDG EN ([facility]'s 15 MINUTES 12:00:00 AM [facility], ) GLUC BLD GLUC MNTR DEV 02/01/2019 MEDGE N ([facility]ica's CLEARED FDA SPEC HOME USE 12:00:00 AM [facility], ) COLLECTION VENOUS BLOOD 02/01/2019 MEDG EN ([facility]'s VENIPUNCTURE 12:00:00 AM [facility], ) Documentation of current 02/01/2019 MED GEN (Jessica's medications (procedure) 12:00:00 AM EDT [facility], [facility]) Documentation of current 02/01/2019 MED GEN (Jessica's medications (procedure) 12:00:00 AM [facility], [facility]) Documentation of current 02/01/2019 MED GEN (Jessica's medications (procedure) 12:00:00 AM [facility], [facility]) Documentation of current 02/01/2019 MED GEN ([facility] medications (procedure) 12:00:00 [facility] Documentation of current 02/01/2019 MED GEN (Jessica's medications (procedure) 12:00:00 AM [facility]) Documentation of current 02/01/2019 MED GEN (Jessica's medications (procedure) 12:00:00 AM [facility]T [facility]) Documentation of current 02/01/2019 MED GEN ([facility]ica's medications (procedure) 12:00:00 AM [facility]) Documentation of current 02/01/2019 MED GEN ([facility] medications (procedure) 12:00:00 AM [facility], [facility]) Documentation of current 02/01/2019 MED GEN ([facility]'s medications (procedure) 12:00:00 AM [facility]) Documentation of current 02/01/2019 MED GEN ([facility] medications (procedure) 12:00:00 AM [facility]) Documentation of current 02/01/2019 MED GEN ([facility] medications (procedure) 12:00:00 AM [facility]) Documentation of current 02/01/2019 MED GEN ([facility] medications (procedure) 12:00:00 AM [facility]) Documentation of current 02/01/2019 MED GEN (Jessica's medications (procedure) 12:00:00 AM [facility]) Documentation of current 02/01/2019 MED GEN ([facility] medications (procedure) 12:00:00 AM [facility]) Documentation of current 02/01/2019 MED GEN ([facility] medications (procedure) 12:00:00 AM [facility]) Documentation of current 02/01/2019 MED GEN ([facility] medications (procedure) 12:00:00 AM [facility]) Documentation of current 02/01/2019 MED GEN ([facility] medications (procedure) 12:00:00 AM [facility], [facility]) Documentation of current 02/01/2019 MED GEN ([facility] medications (procedure) 12:00:00 AM [facility]T [facility], [facility]) Documentation of current 02/01/2019 MED GEN (Jessica's medications (procedure) 12:00:00 AM [facility]) Documentation of current 02/01/2019 MED GEN ([facility]ica's medications (procedure) 12:00:00 AM EDT [facility], ) Documentation of current 02/01/2019 MED GEN ([facility]ica[facility] medications (procedure) 12:00:00 AM [facility], [facility]) Documentation of current 02/01/2019 MED GEN ([facility]ica's medications (procedure) 12:00:00 AM EDT [facility], ) Documentation of current 02/01/2019 MED GEN ([facility]ica's medications (procedure) 12:00:00 AM EDT [facility], ) Documentation of current 02/01/2019 MED GEN ([facility]ica's medications (procedure) 12:00:00 AM [facility], [facility]) OFFICE OUTPATIENT VISIT 02/01/2019 MEDG EN ([facility] 15 MINUTES 12:00:00 AM [facility], ) GLUC BLD GLUC MNTR DEV 02/01/2019 MEDGE N ([facility]ica's CLEARED FDA SPEC HOME USE 12:00:00 AM [facility], ) COLLECTION VENOUS BLOOD 02/01/2019 MEDG EN ([facility] VENIPUNCTURE 12:00:00 AM [facility], ) Documentation of current 02/01/2019 MED GEN (Jessica's medications (procedure) 12:00:00 AM [facility]) Documentation of current 02/01/2019 MED GEN (Jessica's medications (procedure) 12:00:00 AM [facility], [facility]) Documentation of current 02/01/2019 MED GEN ([facility]ica's medications (procedure) 12:00:00 AM [facility], [facility]) Documentation of current 02/01/2019 MED GEN ([facility]ica's medications (procedure) 12:00:00 AM [facility]T [facility], [facility]) Documentation of current 02/01/2019 MED GEN ([facility]ica's medications (procedure) 12:00:00 AM [facility]T [facility], [facility]) Documentation of current 02/01/2019 MED GEN ([facility]ica's medications (procedure) 12:00:00 AM [facility]T [facility], [facility]) Documentation of current 02/01/2019 MED GEN ([facility]ica's medications (procedure) 12:00:00 AM [facility]T [facility], [facility]) Documentation of current 02/01/2019 MED GEN ([facility]ica's medications (procedure) 12:00:00 AM [facility]) Documentation of current 02/01/2019 MED GEN (Jessica's medications (procedure) 12:00:00 AM [facility]T [facility], [facility]) Documentation of current 02/01/2019 MED GEN (Jessica's medications (procedure) 12:00:00 AM [facility]) Documentation of current 02/01/2019 MED GEN ([facility]ica[facility] medications (procedure) 12:00:00 AM [facility]) Documentation of current 02/01/2019 MED GEN ([facility]ica's medications (procedure) 12:00:00 AM [facility]) Documentation of current 02/01/2019 MED GEN (Jessica's medications (procedure) 12:00:00 AM [facility]) Documentation of current 02/01/2019 MED GEN (Jessica's medications (procedure) 12:00:00 AM [facility]) Documentation of current 02/01/2019 MED GEN (Jessica's medications (procedure) 12:00:00 AM [facility]) Documentation of current 02/01/2019 MED GEN ([facility]ica[facility] medications (procedure) 12:00:00 AM [facility]) Documentation of current 02/01/2019 MED GEN ([facility] medications (procedure) 12:00:00 AM [facility]) Documentation of current 02/01/2019 MED GEN ([facility]ica[facility] medications (procedure) 12:00:00 AM [facility]) Documentation of current 02/01/2019 MED GEN ([facility]ica[facility] medications (procedure) 12:00:00 AM [facility]) Documentation of current 02/01/2019 MED GEN (Jessica's medications (procedure) 12:00:00 AM [facility], [facility]) Documentation of current 02/01/2019 MED GEN (Jessica's medications (procedure) 12:00:00 AM [facility], [facility]) Documentation of current 02/01/2019 MED GEN (Jessica's medications (procedure) 12:00:00 AM [facility]) Documentation of current 02/01/2019 MED GEN (Jessica's medications (procedure) 12:00:00 AM [facility], ) Documentation of current 02/01/2019 MED GEN (Jessica's medications (procedure) 12:00:00 AM EDT [facility]ical, ) OFFICE OUTPATIENT VISIT 02/01/2019 MEDG EN ([facility]ica's 15 MINUTES 12:00:00 AM [facility], ) GLUC BLD GLUC MNTR DEV 02/01/2019 MEDGE N (Jessica's CLEARED FDA SPEC HOME USE 12:00:00 AM ED [facility], ) COLLECTION VENOUS BLOOD 02/01/2019 MEDG EN (Jessica's VENIPUNCTURE 12:00:00 AM [facility], ) Documentation of current 12/31/2018 MED GEN (Jessica's medications (procedure) 12:00:00 AM [facility]) Documentation of current 12/31/2018 MED GEN (Jessica's medications (procedure) 12:00:00 AM EDT [facility]ical, ) Documentation of current 12/31/2018 MED GEN (Jessica's medications (procedure) 12:00:00 AM [facility], ) Documentation of current 12/31/2018 MED GEN (Jessica's medications (procedure) 12:00:00 AM [facility], [facility]) Documentation of current 12/31/2018 MED GEN (Jessica's medications (procedure) 12:00:00 AM EDT edical, ) Documentation of current 12/31/2018 MED GEN (Jesisca's medications (procedure) 12:00:00 AM [facility], [facility]) Documentation of current 12/31/2018 MED GEN ([facility]ica's medications (procedure) 12:00:00 AM [facility]) Documentation of current 12/31/2018 MED GEN (Jessica's medications (procedure) 12:00:00 AM [facility], [facility]) Documentation of current 12/31/2018 MED GEN (Jessica's medications (procedure) 12:00:00 AM [facility], [facility]) Documentation of current 12/31/2018 MED GEN (Jessica's medications (procedure) 12:00:00 AM EDT [facility], PC) Documentation of current 12/31/2018 MED GEN (Jessica's medications (procedure) 12:00:00 AM [facility]T [facility], [facility]) Documentation of current 12/31/2018 MED GEN (Jessica[facility] medications (procedure) 12:00:00 AM [facility], [facility]) Documentation of current 12/31/2018 MED GEN ([facility]ica[facility] medications (procedure) 12:00:00 AM [facility], [facility]) Documentation of current 12/31/2018 MED GEN (Jessica's medications (procedure) 12:00:00 AM [facility]T [facility], [facility]) OFFICE OUTPATIENT VISIT 12/31/2018 MEDG EN ([facility]ica's 15 MINUTES 12:00:00 AM EDT [facility]) Documentation of current 12/31/2018 MED GEN (Jessica's medications (procedure) 12:00:00 AM EDT [facility], [facility]) Documentation of current 12/31/2018 MED GEN (Jessica's medications (procedure) 12:00:00 AM [facility]T [facility], [facility]) Documentation of current 12/31/2018 MED GEN (Jessica's medications (procedure) 12:00:00 AM [facility]T [facility], [facility]) Documentation of current 12/31/2018 MED GEN (Jessica's medications (procedure) 12:00:00 AM [facility]T [facility], [facility]) Documentation of current 12/31/2018 MED GEN (Jessica's medications (procedure) 12:00:00 AM EDT [facility], [facility]) Documentation of current 12/31/2018 MED GEN (Jessica's medications (procedure) 12:00:00 AM [facility]T [facility], [facility]) Documentation of current 12/31/2018 MED GEN (Jessica[facility] medications (procedure) 12:00:00 AM EDT [facility], [facility]) Documentation of current 12/31/2018 MED GEN (Jessica's medications (procedure) 12:00:00 AM EDT [facility], [facility]) Documentation of current 12/31/2018 MED GEN (Jessica's medications (procedure) 12:00:00 AM [facility]T [facility], [facility]) Documentation of current 12/31/2018 MED GEN ([facility] medications (procedure) 12:00:00 AM EDT [facility], [facility]) Documentation of current 12/31/2018 MED GEN (Jessica's medications (procedure) 12:00:00 AM EDT [facility], [facility]) Documentation of current 12/31/2018 MED GEN (Jessica's medications (procedure) 12:00:00 AM [facility]) Documentation of current 12/31/2018 MED GEN (Jessica's medications (procedure) 12:00:00 AM [facility]T [facility]) Documentation of current 12/31/2018 MED GEN (Jessica's medications (procedure) 12:00:00 AM EDT [facility]) OFFICE OUTPATIENT VISIT 12/31/2018 MEDG EN ([facility]'s 15 MINUTES 12:00:00 AM EDT [facility]) Documentation of current 12/31/2018 MED GEN (Jessica's medications (procedure) 12:00:00 AM EDT [facility]) Documentation of current 12/31/2018 MED GEN (Jessica's medications (procedure) 12:00:00 AM [facility]T [facility]) Documentation of current 12/31/2018 MED GEN ([facility] medications (procedure) 12:00:00 AM [facility]T [facility]) Documentation of current 12/31/2018 MED GEN ([facility]ica's medications (procedure) 12:00:00 AM EDT [facility]) Documentation of current 12/31/2018 MED GEN (Jessica[facility] medications (procedure) 12:00:00 AM [facility]) Documentation of current 12/31/2018 MED GEN (Jessica's medications (procedure) 12:00:00 AM [facility]T [facility]) Documentation of current 12/31/2018 MED GEN (Jessica's medications (procedure) 12:00:00 AM [facility]) Documentation of current 12/31/2018 MED GEN (Jessica's medications (procedure) 12:00:00 AM [facility]) Documentation of current 12/31/2018 MED GEN (Jessica's medications (procedure) 12:00:00 AM [facility]) Documentation of current 12/31/2018 MED GEN ([facility]ica's medications (procedure) 12:00:00 AM [facility]) Documentation of current 12/31/2018 MED GEN ([facility] medications (procedure) 12:00:00 AM [facility]) Documentation of current 12/31/2018 MED GEN (Jessica's medications (procedure) 12:00:00 AM EDT [facility], [facility]) Documentation of current 12/31/2018 MED GEN ([facility] medications (procedure) 12:00:00 AM [facility]) Documentation of current 12/31/2018 MED GEN ([facility]ica's medications (procedure) 12:00:00 AM [facility]) OFFICE OUTPATIENT VISIT 12/31/2018 MEDG EN ([facility] 15 MINUTES 12:00:00 AM EDT Medical, ) Documentation of current 12/31/2018 MED GEN (Jessica's medications (procedure) 12:00:00 AM EDT [facility], [facility]) Documentation of current 12/31/2018 MED GEN ([facility]ica's medications (procedure) 12:00:00 AM EDT [facility], [facility]) Documentation of current 12/31/2018 MED GEN ([facility]ica[facility] medications (procedure) 12:00:00 AM [facility]) Documentation of current 12/31/2018 MED GEN (Jessica's medications (procedure) 12:00:00 AM EDT [facility], [facility]) Documentation of current 12/31/2018 MED GEN ([facility]ica's medications (procedure) 12:00:00 AM [facility]) Documentation of current 12/31/2018 MED GEN ([facility]ica[facility] medications (procedure) 12:00:00 AM [facility]) Documentation of current 12/31/2018 MED GEN ([facility]ica[facility] medications (procedure) 12:00:00 AM EDT [facility], [facility]) Documentation of current 12/31/2018 MED GEN ([facility]ica's medications (procedure) 12:00:00 AM EDT [facility], [facility]) Documentation of current 12/31/2018 MED GEN ([facility]ica[facility] medications (procedure) 12:00:00 AM [facility]) Documentation of current 12/31/2018 MED GEN ([facility]ica[facility] medications (procedure) 12:00:00 AM [facility]) Documentation of current 12/31/2018 MED GEN ([facility]ica[facility] medications (procedure) 12:00:00 AM [facility]) Documentation of current 12/31/2018 MED GEN ([facility] medications (procedure) 12:00:00 AM EDT [facility], [facility]) Documentation of current 12/31/2018 MED GEN ([facility] medications (procedure) 12:00:00 AM [facility]) Documentation of current 12/31/2018 MED GEN ([facility] medications (procedure) 12:00:00 AM [facility]) OFFICE OUTPATIENT VISIT 12/31/2018 MEDG EN ([facility] 15 MINUTES 12:00:00 AM [facility], [facility]) Documentation of current 12/31/2018 MED GEN (Jessica's medications (procedure) 12:00:00 AM EDT [facility], [facility]) Documentation of current 12/31/2018 MED GEN ([facility] medications (procedure) 12:00:00 AM EDT [facility], [facility]) Documentation of current 12/31/2018 MED GEN ([facility] medications (procedure) 12:00:00 AM [facility]) Documentation of current 12/31/2018 MED GEN ([facility]ica[facility] medications (procedure) 12:00:00 AM EDT [facility], [facility]) Documentation of current 12/31/2018 MED GEN ([facility] medications (procedure) 12:00:00 AM [facility]) Documentation of current 12/31/2018 MED GEN ([facility] medications (procedure) 12:00:00 AM [facility]) Documentation of current 12/31/2018 MED GEN ([facility] medications (procedure) 12:00:00 AM [facility]) Documentation of current 12/31/2018 MED GEN (Jessica[facility] medications (procedure) 12:00:00 AM EDT [facility], [facility]) Documentation of current 12/31/2018 MED GEN ([facility] medications (procedure) 12:00:00 AM EDT [facility], PC) Documentation of current 12/31/2018 MED GEN ([facility] medications (procedure) 12:00:00 AM [facility]) Documentation of current 12/31/2018 MED GEN ([facility] medications (procedure) 12:00:00 AM [facility]) Documentation of current 12/31/2018 MED GEN ([facility] medications (procedure) 12:00:00 AM [facility]) Documentation of current 12/31/2018 MED GEN ([facility] medications (procedure) 12:00:00 AM ED[facility]) Documentation of current 12/31/2018 MED GEN ([facility]ica[facility] medications (procedure) 12:00:00 AM EDT [facility], [facility]) OFFICE OUTPATIENT VISIT 12/31/2018 MEDG EN ([facility] 15 MINUTES 12:00:00 AM EDT [facility]) Documentation of current 12/31/2018 MED GEN (Jessica's medications (procedure) 12:00:00 AM EDT [facility], [facility]) Documentation of current 12/31/2018 MED GEN ([facility]ica[facility] medications (procedure) 12:00:00 AM EDT [facility], [facility]) Documentation of current 12/31/2018 MED GEN ([facility]ica[facility] medications (procedure) 12:00:00 AM EDT [facility], [facility]) Documentation of current 12/31/2018 MED GEN ([facility]ica[facility] medications (procedure) 12:00:00 AM EDT [facility], [facility]) Documentation of current 12/31/2018 MED GEN ([facility] medications (procedure) 12:00:00 AM EDT [facility], [facility]) Documentation of current 12/31/2018 MED GEN ([facility] medications (procedure) 12:00:00 AM EDT [facility], [facility]) Documentation of current 12/31/2018 MED GEN ([facility] medications (procedure) 12:00:00 AM EDT [facility], [facility]) Documentation of current 12/31/2018 MED GEN ([facility]ica[facility] medications (procedure) 12:00:00 AM EDT [facility], [facility]) Documentation of current 12/31/2018 MED GEN ([facility]ica[facility] medications (procedure) 12:00:00 AM EDT [facility], [facility]) Documentation of current 12/31/2018 MED GEN ([facility]ica[facility] medications (procedure) 12:00:00 AM EDT [facility], [facility]) Documentation of current 12/31/2018 MED GEN (Jessica's medications (procedure) 12:00:00 AM EDT [facility], [facility]) Documentation of current 12/31/2018 MED GEN (Jessica's medications (procedure) 12:00:00 AM EDT [facility], [facility]) Documentation of current 12/31/2018 MED GEN ([facility] medications (procedure) 12:00:00 AM EDT [facility], [facility]) Documentation of current 12/31/2018 MED GEN ([facility]ica[facility] medications (procedure) 12:00:00 AM EDT [facility], [facility]) OFFICE OUTPATIENT VISIT 12/31/2018 MEDG EN ([facility] 15 MINUTES 12:00:00 AM EDT [facility]) Documentation of current 12/31/2018 MED GEN (Jessica's medications (procedure) 12:00:00 AM EDT [facility], [facility]) Documentation of current 12/31/2018 MED GEN ([facility] medications (procedure) 12:00:00 AM EDT [facility], [facility]) Documentation of current 12/31/2018 MED GEN ([facility] medications (procedure) 12:00:00 AM EDT [facility], [facility]) Documentation of current 12/31/2018 MED GEN ([facility]ica's medications (procedure) 12:00:00 AM EDT [facility], [facility]) Documentation of current 12/31/2018 MED GEN (Jessica's medications (procedure) 12:00:00 AM EDT [facility], [facility]) Documentation of current 12/31/2018 MED GEN ([facility]ica's medications (procedure) 12:00:00 AM EDT [facility], [facility]) Documentation of current 12/31/2018 MED GEN ([facility]ica[facility] medications (procedure) 12:00:00 AM EDT [facility], [facility]) Documentation of current 12/31/2018 MED GEN ([facility] medications (procedure) 12:00:00 AM EDT [facility], [facility]) Documentation of current 12/31/2018 MED GEN ([facility] medications (procedure) 12:00:00 AM EDT [facility], [facility]) Documentation of current 12/31/2018 MED GEN ([facility] medications (procedure) 12:00:00 AM EDT [facility]alie, PC) Documentation of current 12/31/2018 MED GEN ([facility] medications (procedure) 12:00:00 AM EDT natalie, PC) Documentation of current 12/31/2018 MED GEN ([facility] medications (procedure) 12:00:00 AM EDT natalie, PC) Documentation of current 12/31/2018 MED GEN ([facility] medications (procedure) 12:00:00 AM EDT natalie, PC) Documentation of current 12/31/2018 MED GEN ([facility] medications (procedure) 12:00:00 AM EDT [facility], PC) OFFICE OUTPATIENT VISIT 12/31/2018 MEDG EN ([facility] 15 MINUTES 12:00:00 AM EDT [facility], ) Documentation of current 12/31/2018 MED GEN ([facility]'s medications (procedure) 12:00:00 AM EDT [facility]co[facility], PC) Documentation of current 12/31/2018 MED GEN ([facility] medications (procedure) 12:00:00 AM EDT [facility]co[facility], PC) Documentation of current 12/31/2018 MED GEN ([facility] medications (procedure) 12:00:00 AM EDT [facility]co[facility], PC) Documentation of current 12/31/2018 MED GEN ([facility] medications (procedure) 12:00:00 AM EDT [facility]co[facility], PC) Documentation of current 12/31/2018 MED GEN ([facility] medications (procedure) 12:00:00 AM EDT [facility]co[facility], PC) Documentation of current 12/31/2018 MED GEN ([facility] medications (procedure) 12:00:00 AM EDT [facility], PC) Documentation of current 12/31/2018 MED GEN ([facility] medications (procedure) 12:00:00 AM EDT [facility]co[facility], PC) Documentation of current 12/31/2018 MED GEN ([facility] medications (procedure) 12:00:00 AM EDT natalie, PC) Documentation of current 12/31/2018 MED GEN ([facility] medications (procedure) 12:00:00 AM EDT [facility], PC) Documentation of current 12/31/2018 MED GEN ([facility] medications (procedure) 12:00:00 AM EDT [facility]co[facility], PC) Documentation of current 12/31/2018 MED GEN ([facility] medications (procedure) 12:00:00 AM EDT [facility]co[facility], PC) Documentation of current 12/31/2018 MED GEN ([facility] medications (procedure) 12:00:00 AM EDT [facility]co[facility], PC) Documentation of current 12/31/2018 MED GEN ([facility] medications (procedure) 12:00:00 AM EDT [facility], [facility]) Documentation of current 12/31/2018 MED GEN ([facility] medications (procedure) 12:00:00 AM EDT natalie, PC) Documentation of current 12/31/2018 MED GEN ([facility] medications (procedure) 12:00:00 AM EDT natalie, PC) Documentation of current 12/31/2018 MED GEN ([facility] medications (procedure) 12:00:00 AM EDT natalie, PC) Documentation of current 12/31/2018 MED GEN ([facility] medications (procedure) 12:00:00 AM EDT natalie, PC) Documentation of current 12/31/2018 MED GEN ([facility] medications (procedure) 12:00:00 AM EDT natalie, PC) Documentation of current 12/31/2018 MED GEN ([facility] medications (procedure) 12:00:00 AM EDT natalie, PC) Documentation of current 12/31/2018 MED GEN ([facility] medications (procedure) 12:00:00 AM EDT natalie, PC) Documentation of current 12/31/2018 MED GEN ([facility] medications (procedure) 12:00:00 AM EDT natalie, PC) Documentation of current 12/31/2018 MED GEN ([facility] medications (procedure) 12:00:00 AM EDT natalie, PC) Documentation of current 12/31/2018 MED GEN ([facility] medications (procedure) 12:00:00 AM EDT natalie, PC) Documentation of current 12/31/2018 MED GEN ([facility] medications (procedure) 12:00:00 AM EDT natalie, PC) Documentation of current 12/31/2018 MED GEN ([facility] medications (procedure) 12:00:00 AM EDT natalie, PC) Documentation of current 12/31/2018 MED GEN ([facility] medications (procedure) 12:00:00 AM EDT natalie, PC) Documentation of current 12/31/2018 MED GEN ([facility] medications (procedure) 12:00:00 AM EDT natalie, PC) Documentation of current 12/31/2018 MED GEN ([facility] medications (procedure) 12:00:00 AM EDT [facility]) OFFICE OUTPATIENT VISIT 12/31/2018 MEDG EN ([facility] 15 MINUTES 12:00:00 AM [facility]) Documentation of current 12/31/2018 MED GEN (Jessica's medications (procedure) 12:00:00 AM EDT natalie, PC) Documentation of current 12/31/2018 MED GEN ([facility] medications (procedure) 12:00:00 AM EDT natalie, PC) Documentation of current 12/31/2018 MED GEN ([facility] medications (procedure) 12:00:00 AM EDT natalie, PC) Documentation of current 12/31/2018 MED GEN ([facility] medications (procedure) 12:00:00 AM EDT natalie, PC) Documentation of current 12/31/2018 MED GEN ([facility] medications (procedure) 12:00:00 AM EDT natalie, PC) Documentation of current 12/31/2018 MED GEN ([facility] medications (procedure) 12:00:00 AM EDT natalie, PC) Documentation of current 12/31/2018 MED GEN ([facility] medications (procedure) 12:00:00 AM EDT natalie, PC) Documentation of current 12/31/2018 MED GEN ([facility] medications (procedure) 12:00:00 AM EDT natalie, PC) Documentation of current 12/31/2018 MED GEN ([facility] medications (procedure) 12:00:00 AM EDT natalie, PC) Documentation of current 12/31/2018 MED GEN ([facility] medications (procedure) 12:00:00 AM EDT [facility]alie PC) Documentation of current 12/31/2018 MED GEN ([facility] medications (procedure) 12:00:00 AM EDT natalie, PC) Documentation of current 12/31/2018 MED GEN ([facility] medications (procedure) 12:00:00 AM EDT natalie, PC) Documentation of current 12/31/2018 MED GEN ([facility] medications (procedure) 12:00:00 AM EDT natalie, PC) Documentation of current 12/31/2018 MED GEN ([facility] medications (procedure) 12:00:00 AM EDT natalie, PC) OFFICE OUTPATIENT VISIT 12/31/2018 MEDG EN ([facility] 15 MINUTES 12:00:00 AM EDT Kyle, PC) Documentation of current 12/31/2018 MED GEN ([facility] medications (procedure) 12:00:00 AM EDT natalie, PC) Documentation of current 12/31/2018 MED GEN ([facility] medications (procedure) 12:00:00 AM EDT natalie, PC) Documentation of current 12/31/2018 MED GEN ([facility] medications (procedure) 12:00:00 AM EDT [facility]co[facility], PC) Documentation of current 12/31/2018 MED GEN ([facility] medications (procedure) 12:00:00 AM EDT natalie, PC) Documentation of current 12/31/2018 MED GEN ([facility] medications (procedure) 12:00:00 AM EDT edical, PC) Documentation of current 12/31/2018 MED GEN ([facility] medications (procedure) 12:00:00 AM EDT natalie, PC) Documentation of current 12/31/2018 MED GEN ([facility] medications (procedure) 12:00:00 AM EDT natalie, PC) Documentation of current 12/31/2018 MED GEN ([facility] medications (procedure) 12:00:00 AM EDT natalie, PC) Documentation of current 12/31/2018 MED GEN ([facility] medications (procedure) 12:00:00 AM EDT [facility]co[facility], PC) Documentation of current 12/31/2018 MED GEN ([facility] medications (procedure) 12:00:00 AM EDT natalie, PC) Documentation of current 12/31/2018 MED GEN ([facility] medications (procedure) 12:00:00 AM EDT [facility]co[facility], PC) Documentation of current 12/31/2018 MED GEN ([facility] medications (procedure) 12:00:00 AM EDT natalie, PC) Documentation of current 12/31/2018 MED GEN ([facility] medications (procedure) 12:00:00 AM EDT [facility], PC) Documentation of current 12/31/2018 MED GEN ([facility] medications (procedure) 12:00:00 AM EDT [facility], PC) OFFICE OUTPATIENT VISIT 12/31/2018 MEDG EN ([facility] 15 MINUTES 12:00:00 AM EDT [facility], PC) Documentation of current 12/31/2018 MED GEN ([facility] medications (procedure) 12:00:00 AM EDT natalie, PC) Documentation of current 12/31/2018 MED GEN ([facility] medications (procedure) 12:00:00 AM EDT [facility], PC) Documentation of current 12/31/2018 MED GEN ([facility] medications (procedure) 12:00:00 AM EDT edical, PC) Documentation of current 12/31/2018 MED GEN ([facility] medications (procedure) 12:00:00 AM EDT [facility]co[facility], PC) Documentation of current 12/31/2018 MED GEN ([facility] medications (procedure) 12:00:00 AM EDT edical, PC) Documentation of current 12/31/2018 MED GEN ([facility] medications (procedure) 12:00:00 AM EDT [facility]co[facility], PC) Documentation of current 12/31/2018 MED GEN ([facility] medications (procedure) 12:00:00 AM EDT [facility]co[facility], PC) Documentation of current 12/31/2018 MED GEN ([facility] medications (procedure) 12:00:00 AM EDT [facility]co[facility], PC) Documentation of current 12/31/2018 MED GEN ([facility] medications (procedure) 12:00:00 AM EDT [facility]coical, PC) Documentation of current 12/31/2018 MED GEN ([facility] medications (procedure) 12:00:00 AM EDT natalie, PC) Documentation of current 12/31/2018 MED GEN ([facility] medications (procedure) 12:00:00 AM EDT demacro[facility], PC) Documentation of current 12/31/2018 MED GEN ([facility] medications (procedure) 12:00:00 AM EDT [facility]co[facility], PC) Documentation of current 12/31/2018 MED GEN ([facility] medications (procedure) 12:00:00 AM EDT edical, PC) Documentation of current 12/31/2018 MED GEN ([facility] medications (procedure) 12:00:00 AM EDT edical, PC) OFFICE OUTPATIENT VISIT 12/31/2018 MEDG EN ([facility] 15 MINUTES 12:00:00 AM EDT Medical, PC) Documentation of current 12/17/2018 MED GEN ([facility] medications (procedure) 12:00:00 AM EDT [facility]coical, PC) Documentation of current 12/17/2018 MED GEN ([facility] medications (procedure) 12:00:00 AM EDT [facility]coical, PC) Documentation of current 12/17/2018 MED GEN ([facility] medications (procedure) 12:00:00 AM EDT edical, PC) Documentation of current 12/17/2018 MED GEN ([facility] medications (procedure) 12:00:00 AM EDT demarcoical, PC) Documentation of current 12/17/2018 MED GEN ([facility] medications (procedure) 12:00:00 AM EDT edical, PC) Documentation of current 12/17/2018 MED GEN ([facility] medications (procedure) 12:00:00 AM EDT edical, PC) Documentation of current 12/17/2018 MED GEN ([facility] medications (procedure) 12:00:00 AM EDT edical, PC) Documentation of current 12/17/2018 MED GEN ([facility] medications (procedure) 12:00:00 AM EDT edical, PC) Documentation of current 12/17/2018 MED GEN ([facility] medications (procedure) 12:00:00 AM EDT edical, PC) Documentation of current 12/17/2018 MED GEN ([facility] medications (procedure) 12:00:00 AM EDT [facility]co[facility], PC) Documentation of current 12/17/2018 MED GEN ([facility] medications (procedure) 12:00:00 AM EDT [facility]co[facility], PC) Documentation of current 12/17/2018 MED GEN ([facility] medications (procedure) 12:00:00 AM EDT edical, PC) Documentation of current 12/17/2018 MED GEN ([facility] medications (procedure) 12:00:00 AM EDT edical, PC) Documentation of current 12/17/2018 MED GEN ([facility] medications (procedure) 12:00:00 AM EDT edical, PC) Documentation of current 12/17/2018 MED GEN ([facility] medications (procedure) 12:00:00 AM EDT natalie, ) Documentation of current 12/17/2018 MED GEN ([facility] medications (procedure) 12:00:00 AM EDT natalie, PC) Documentation of current 12/17/2018 MED GEN ([facility] medications (procedure) 12:00:00 AM EDT [facility]co[facility], PC) Documentation of current 12/17/2018 MED GEN ([facility] medications (procedure) 12:00:00 AM EDT [facility]co[facility], PC) Documentation of current 12/17/2018 MED GEN ([facility] medications (procedure) 12:00:00 AM EDT [facility]co[facility], PC) Documentation of current 12/17/2018 MED GEN ([facility] medications (procedure) 12:00:00 AM EDT [facility]co[facility], PC) Documentation of current 12/17/2018 MED GEN ([facility] medications (procedure) 12:00:00 AM EDT demarcoical, PC) Documentation of current 12/17/2018 MED GEN ([facility] medications (procedure) 12:00:00 AM EDT natalie, ) Documentation of current 12/17/2018 MED GEN ([facility] medications (procedure) 12:00:00 AM EDT [facility]co[facility], PC) Documentation of current 12/17/2018 MED GEN ([facility] medications (procedure) 12:00:00 AM EDT natalie, ) Documentation of current 12/17/2018 MED GEN ([facility] medications (procedure) 12:00:00 AM EDT natalie, ) OFFICE OUTPATIENT VISIT 12/17/2018 MEDG EN ([facility] 15 MINUTES 12:00:00 AM EDT Medical, PC) GLUC BLD GLUC MNTR DEV 12/17/2018 MEDGE N ([facility] CLEARED FDA SPEC HOME USE 12:00:00 AM EDT Medical, PC) Documentation of current 12/17/2018 MED GEN ([facility] medications (procedure) 12:00:00 AM EDT natalie, ) Documentation of current 12/17/2018 MED GEN ([facility] medications (procedure) 12:00:00 AM EDT [facility]co[facility], PC) Documentation of current 12/17/2018 MED GEN ([facility] medications (procedure) 12:00:00 AM EDT [facility]coical, PC) Documentation of current 12/17/2018 MED GEN ([facility] medications (procedure) 12:00:00 AM EDT edical, PC) Documentation of current 12/17/2018 MED GEN ([facility] medications (procedure) 12:00:00 AM EDT edical, PC) Documentation of current 12/17/2018 MED GEN ([facility] medications (procedure) 12:00:00 AM EDT edical, PC) Documentation of current 12/17/2018 MED GEN ([facility] medications (procedure) 12:00:00 AM EDT edical, PC) Documentation of current 12/17/2018 MED GEN ([facility] medications (procedure) 12:00:00 AM EDT edical, PC) Documentation of current 12/17/2018 MED GEN ([facility] medications (procedure) 12:00:00 AM EDT edical, PC) Documentation of current 12/17/2018 MED GEN ([facility] medications (procedure) 12:00:00 AM EDT [facility]coical, PC) Documentation of current 12/17/2018 MED GEN ([facility]'s medications (procedure) 12:00:00 AM EDT [facility]co[facility], PC) OFFICE OUTPATIENT VISIT 12/17/2018 MEDG EN ([facility] 15 MINUTES 12:00:00 AM [facility], PC) GLUC BLD GLUC MNTR DEV 12/17/2018 MEDGE N ([facility] CLEARED FDA SPEC HOME USE 12:00:00 AM ED Medical, PC) Documentation of current 12/17/2018 MED GEN ([facility] medications (procedure) 12:00:00 AM EDT demarcoical, PC) Documentation of current 12/17/2018 MED GEN ([facility] medications (procedure) 12:00:00 AM EDT edical, PC) Documentation of current 12/17/2018 MED GEN ([facility] medications (procedure) 12:00:00 AM EDT demarcoical, PC) Documentation of current 12/17/2018 MED GEN ([facility] medications (procedure) 12:00:00 AM EDT edical, PC) Documentation of current 12/17/2018 MED GEN ([facility] medications (procedure) 12:00:00 AM EDT Lewis estrada, [facility]) Documentation of current 12/17/2018 MED GEN ([facility] medications (procedure) 12:00:00 AM EDT natalie, [facility]) Documentation of current 12/17/2018 MED GEN ([facility] medications (procedure) 12:00:00 AM EDT natalie, [facility]) Documentation of current 12/17/2018 MED GEN ([facility] medications (procedure) 12:00:00 AM EDT natalie, PC) Documentation of current 12/17/2018 MED GEN ([facility] medications (procedure) 12:00:00 AM EDT natalie, PC) Documentation of current 12/17/2018 MED GEN ([facility] medications (procedure) 12:00:00 AM EDT natalie, PC) Documentation of current 12/17/2018 MED GEN ([facility] medications (procedure) 12:00:00 AM EDT natalie, PC) Documentation of current 12/17/2018 MED GEN ([facility] medications (procedure) 12:00:00 AM EDT natalie, PC) Documentation of current 12/17/2018 MED GEN ([facility] medications (procedure) 12:00:00 AM EDT natalie, PC) Documentation of current 12/17/2018 MED GEN ([facility] medications (procedure) 12:00:00 AM EDT natalie, PC) Documentation of current 12/17/2018 MED GEN ([facility] medications (procedure) 12:00:00 AM EDT natalie, PC) Documentation of current 12/17/2018 MED GEN ([facility] medications (procedure) 12:00:00 AM EDT CARID[facility] estrada) Documentation of current 12/17/2018 MED GEN ([facility] medications (procedure) 12:00:00 AM EDT natalie, PC) Documentation of current 12/17/2018 MED GEN ([facility] medications (procedure) 12:00:00 AM EDT natalie, PC) Documentation of current 12/17/2018 MED GEN ([facility] medications (procedure) 12:00:00 AM EDT Lewis estrada, PC) Documentation of current 12/17/2018 MED GEN ([facility] medications (procedure) 12:00:00 AM EDT edical, PC) Documentation of current 12/17/2018 MED GEN ([facility] medications (procedure) 12:00:00 AM EDT edical, PC) Documentation of current 12/17/2018 MED GEN ([facility] medications (procedure) 12:00:00 AM EDT edical, PC) Documentation of current 12/17/2018 MED GEN ([facility] medications (procedure) 12:00:00 AM EDT edical, PC) Documentation of current 12/17/2018 MED GEN ([facility] medications (procedure) 12:00:00 AM EDT [facility]co[facility], PC) Documentation of current 12/17/2018 MED GEN ([facility] medications (procedure) 12:00:00 AM EDT edical, PC) Documentation of current 12/17/2018 MED GEN ([facility] medications (procedure) 12:00:00 AM EDT [facility], PC) Documentation of current 12/17/2018 MED GEN ([facility] medications (procedure) 12:00:00 AM EDT [facility]co[facility], PC) Documentation of current 12/17/2018 MED GEN ([facility] medications (procedure) 12:00:00 AM EDT [facility]co[facility], PC) Documentation of current 12/17/2018 MED GEN ([facility] medications (procedure) 12:00:00 AM EDT [facility]co[facility], PC) OFFICE OUTPATIENT VISIT 12/17/2018 MEDG EN ([facility] 15 MINUTES 12:00:00 AM ED Medical, PC) GLUC BLD GLUC MNTR DEV 12/17/2018 MEDGE N ([facility] CLEARED FDA SPEC HOME USE 12:00:00 AM EDT Medical, PC) Documentation of current 12/17/2018 MED GEN ([facility] medications (procedure) 12:00:00 AM EDT [facility]co[facility], PC) Documentation of current 12/17/2018 MED GEN ([facility] medications (procedure) 12:00:00 AM EDT edical, PC) Documentation of current 12/17/2018 MED GEN ([facility] medications (procedure) 12:00:00 AM EDT edical, PC) Documentation of current 12/17/2018 MED GEN ([facility] medications (procedure) 12:00:00 AM EDT demarcoical, PC) Documentation of current 12/17/2018 MED GEN ([facility] medications (procedure) 12:00:00 AM EDT natalie, PC) Documentation of current 12/17/2018 MED GEN ([facility] medications (procedure) 12:00:00 AM EDT M natalie, [facility]) Documentation of current 12/17/2018 MED GEN ([facility] medications (procedure) 12:00:00 AM EDT natalie, PC) Documentation of current 12/17/2018 MED GEN ([facility] medications (procedure) 12:00:00 AM EDT natalie, PC) Documentation of current 12/17/2018 MED GEN ([facility] medications (procedure) 12:00:00 AM EDT natalie, PC) Documentation of current 12/17/2018 MED GEN ([facility] medications (procedure) 12:00:00 AM EDT natalie, PC) Documentation of current 12/17/2018 MED GEN ([facility] medications (procedure) 12:00:00 AM EDT natalie, PC) Documentation of current 12/17/2018 MED GEN ([facility] medications (procedure) 12:00:00 AM EDT natalie, PC) Documentation of current 12/17/2018 MED GEN ([facility] medications (procedure) 12:00:00 AM EDT natalie, PC) Documentation of current 12/17/2018 MED GEN ([facility] medications (procedure) 12:00:00 AM EDT natalie, PC) Documentation of current 12/17/2018 MED GEN ([facility] medications (procedure) 12:00:00 AM EDT natalie, PC) Documentation of current 12/17/2018 MED GEN ([facility] medications (procedure) 12:00:00 AM EDT natalie, PC) Documentation of current 12/17/2018 MED GEN ([facility] medications (procedure) 12:00:00 AM EDT M natalie, PC) Documentation of current 12/17/2018 MED GEN ([facility] medications (procedure) 12:00:00 AM EDT M natalie, PC) Documentation of current 12/17/2018 MED GEN ([facility] medications (procedure) 12:00:00 AM EDT natalie, PC) Documentation of current 12/17/2018 MED GEN ([facility] medications (procedure) 12:00:00 AM EDT natalie, PC) Documentation of current 12/17/2018 MED GEN ([facility] medications (procedure) 12:00:00 AM EDT M natalie, PC) Documentation of current 12/17/2018 MED GEN ([facility] medications (procedure) 12:00:00 AM EDT natalie, PC) Documentation of current 12/17/2018 MED GEN ([facility] medications (procedure) 12:00:00 AM EDT natalie, PC) Documentation of current 12/17/2018 MED GEN ([facility] medications (procedure) 12:00:00 AM EDT natalie, PC) Documentation of current 12/17/2018 MED GEN ([facility] medications (procedure) 12:00:00 AM EDT natalie, PC) Documentation of current 12/17/2018 MED GEN ([facility] medications (procedure) 12:00:00 AM EDT natalie, PC) Documentation of current 12/17/2018 MED GEN ([facility] medications (procedure) 12:00:00 AM EDT natalie, PC) Documentation of current 12/17/2018 MED GEN ([facility] medications (procedure) 12:00:00 AM EDT natalie, PC) Documentation of current 12/17/2018 MED GEN ([facility] medications (procedure) 12:00:00 AM EDT natalie, PC) Documentation of current 12/17/2018 MED GEN ([facility] medications (procedure) 12:00:00 AM EDT natalie, PC) Documentation of current 12/17/2018 MED GEN ([facility] medications (procedure) 12:00:00 AM EDT natalie, PC) Documentation of current 12/17/2018 MED GEN ([facility] medications (procedure) 12:00:00 AM EDT natalie, PC) Documentation of current 12/17/2018 MED GEN ([facility] medications (procedure) 12:00:00 AM EDT natalie, PC) Documentation of current 12/17/2018 MED GEN ([facility] medications (procedure) 12:00:00 AM EDT natalie, PC) Documentation of current 12/17/2018 MED GEN ([facility] medications (procedure) 12:00:00 AM EDT edical, PC) OFFICE OUTPATIENT VISIT 12/17/2018 MEDG EN ([facility] 15 MINUTES 12:00:00 AM EDT Medical, PC) GLUC BLD GLUC MNTR DEV 12/17/2018 MEDGE N ([facility] CLEARED FDA SPEC HOME USE 12:00:00 AM EDT Medical, PC) Documentation of current 12/17/2018 MED GEN ([facility] medications (procedure) 12:00:00 AM EDT edical, PC) Documentation of current 12/17/2018 MED GEN ([facility] medications (procedure) 12:00:00 AM EDT edical, PC) Documentation of current 12/17/2018 MED GEN ([facility] medications (procedure) 12:00:00 AM EDT edical, PC) Documentation of current 12/17/2018 MED GEN ([facility] medications (procedure) 12:00:00 AM EDT edical, PC) Documentation of current 12/17/2018 MED GEN ([facility] medications (procedure) 12:00:00 AM EDT edical, PC) Documentation of current 12/17/2018 MED GEN ([facility] medications (procedure) 12:00:00 AM EDT edical, PC) Documentation of current 12/17/2018 MED GEN ([facility] medications (procedure) 12:00:00 AM EDT edical, PC) Documentation of current 12/17/2018 MED GEN ([facility] medications (procedure) 12:00:00 AM EDT edical, PC) Documentation of current 12/17/2018 MED GEN ([facility] medications (procedure) 12:00:00 AM EDT edical, PC) Documentation of current 12/17/2018 MED GEN ([facility] medications (procedure) 12:00:00 AM EDT edical, PC) Documentation of current 12/17/2018 MED GEN ([facility] medications (procedure) 12:00:00 AM EDT edical, PC) Documentation of current 12/17/2018 MED GEN ([facility] medications (procedure) 12:00:00 AM EDT edical, PC) Documentation of current 12/17/2018 MED GEN ([facility] medications (procedure) 12:00:00 AM EDT edical, PC) Documentation of current 12/17/2018 MED GEN ([facility] medications (procedure) 12:00:00 AM EDT edical, PC) Documentation of current 12/17/2018 MED GEN ([facility] medications (procedure) 12:00:00 AM EDT edical, PC) Documentation of current 12/17/2018 MED GEN ([facility] medications (procedure) 12:00:00 AM EDT edical, PC) Documentation of current 12/17/2018 MED GEN ([facility] medications (procedure) 12:00:00 AM EDT edical, PC) OFFICE OUTPATIENT VISIT 12/17/2018 MEDG EN ([facility] 15 MINUTES 12:00:00 AM [facility] Medical, PC) GLUC BLD GLUC MNTR DEV 12/17/2018 MEDGE N ([facility] CLEARED FDA SPEC HOME USE 12:00:00 AM ED Medical, PC) Documentation of current 12/17/2018 MED GEN ([facility] medications (procedure) 12:00:00 AM EDT edical, PC) Documentation of current 12/17/2018 MED GEN ([facility] medications (procedure) 12:00:00 AM EDT edical, PC) Documentation of current 12/17/2018 MED GEN ([facility] medications (procedure) 12:00:00 AM EDT edical, PC) Documentation of current 12/17/2018 MED GEN ([facility] medications (procedure) 12:00:00 AM EDT edical, PC) Documentation of current 12/17/2018 MED GEN ([facility] medications (procedure) 12:00:00 AM EDT edical, PC) Documentation of current 12/17/2018 MED GEN ([facility] medications (procedure) 12:00:00 AM EDT edical, PC) Documentation of current 12/17/2018 MED GEN ([facility] medications (procedure) 12:00:00 AM EDT edical, PC) Documentation of current 12/17/2018 MED GEN ([facility] medications (procedure) 12:00:00 AM EDT edical, PC) Documentation of current 12/17/2018 MED GEN ([facility] medications (procedure) 12:00:00 AM EDT Lewis estrada, PC) Documentation of current 12/17/2018 MED GEN ([facility] medications (procedure) 12:00:00 AM EDT natalie, PC) Documentation of current 12/17/2018 MED GEN ([facility] medications (procedure) 12:00:00 AM EDT natalie, PC) Documentation of current 12/17/2018 MED GEN ([facility] medications (procedure) 12:00:00 AM EDT natalie, PC) Documentation of current 12/17/2018 MED GEN ([facility]'s medications (procedure) 12:00:00 AM EDT [facility], [facility]) Documentation of current 12/17/2018 MED GEN ([facility]'s medications (procedure) 12:00:00 AM EDT [facility], PC) Documentation of current 12/17/2018 MED GEN ([facility]'s medications (procedure) 12:00:00 AM EDT [facility], PC) Documentation of current 12/17/2018 MED GEN ([facility]'s medications (procedure) 12:00:00 AM EDT [facility], PC) Documentation of current 12/17/2018 MED GEN ([facility] medications (procedure) 12:00:00 AM EDT [facility], PC) Documentation of current 12/17/2018 MED GEN ([facility]'s medications (procedure) 12:00:00 AM EDT [facility], PC) Documentation of current 12/17/2018 MED GEN ([facility]'s medications (procedure) 12:00:00 AM EDT [facility], PC) Documentation of current 12/17/2018 MED GEN ([facility]'s medications (procedure) 12:00:00 AM EDT [facility], PC) Documentation of current 12/17/2018 MED GEN ([facility] medications (procedure) 12:00:00 AM EDT [facility], PC) Documentation of current 12/17/2018 MED GEN ([facility] medications (procedure) 12:00:00 AM EDT [facility], PC) Documentation of current 12/17/2018 MED GEN ([facility]'s medications (procedure) 12:00:00 AM EDT [facility], PC) Documentation of current 12/17/2018 MED GEN ([facility] medications (procedure) 12:00:00 AM EDT M edical, PC) Documentation of current 12/17/2018 MED GEN ([facility]'s medications (procedure) 12:00:00 AM EDT edical, PC) Documentation of current 12/17/2018 MED GEN ([facility] medications (procedure) 12:00:00 AM EDT edical, PC) Documentation of current 12/17/2018 MED GEN ([facility] medications (procedure) 12:00:00 AM EDT edical, PC) Documentation of current 12/17/2018 MED GEN ([facility] medications (procedure) 12:00:00 AM EDT edical, PC) Documentation of current 12/17/2018 MED GEN ([facility] medications (procedure) 12:00:00 AM EDT edical, PC) Documentation of current 12/17/2018 MED GEN ([facility] medications (procedure) 12:00:00 AM EDT [facility], [facility]) Documentation of current 12/17/2018 MED GEN ([facility] medications (procedure) 12:00:00 AM EDT [facility], PC) Documentation of current 12/17/2018 MED GEN ([facility] medications (procedure) 12:00:00 AM EDT [facility], PC) Documentation of current 12/17/2018 MED GEN ([facility]'s medications (procedure) 12:00:00 AM EDT [facility], PC) OFFICE OUTPATIENT VISIT 12/17/2018 MEDG EN ([facility] GLUC MNTR DEV 12/17/2018 MEDGE N ([facility]'s CLEARED FDA SPEC HOME USE 12:00:00 AM ED Medical, PC) Documentation of current 12/17/2018 MED GEN ([facility]'s medications (procedure) 12:00:00 AM EDT [facility], PC) Documentation of current 12/17/2018 MED GEN ([facility]'s medications (procedure) 12:00:00 AM EDT edical, PC) Documentation of current 12/17/2018 MED GEN ([facility]'s medications (procedure) 12:00:00 AM EDT edical, PC) Documentation of current 12/17/2018 MED GEN ([facility]'s medications (procedure) 12:00:00 AM EDT edical, PC) Documentation of current 12/17/2018 MED GEN ([facility] medications (procedure) 12:00:00 AM EDT [facility], PC) Documentation of current 12/17/2018 MED GEN ([facility] medications (procedure) 12:00:00 AM EDT edical, PC) Documentation of current 12/17/2018 MED GEN ([facility] medications (procedure) 12:00:00 AM EDT [facility], PC) Documentation of current 12/17/2018 MED GEN ([facility] medications (procedure) 12:00:00 AM EDT [facility], PC) Documentation of current 12/17/2018 MED GEN ([facility] medications (procedure) 12:00:00 AM EDT [facility], PC) Documentation of current 12/17/2018 MED GEN ([facility] medications (procedure) 12:00:00 AM EDT [facility], PC) Documentation of current 12/17/2018 MED GEN ([facility]'s medications (procedure) 12:00:00 AM EDT [facility], PC) Documentation of current 12/17/2018 MED GEN ([facility] medications (procedure) 12:00:00 AM EDT [facility], PC) Documentation of current 12/17/2018 MED GEN ([facility] medications (procedure) 12:00:00 AM EDT [facility], PC) Documentation of current 12/17/2018 MED GEN ([facility]'s medications (procedure) 12:00:00 AM EDT [facility], PC) OFFICE OUTPATIENT VISIT 12/17/2018 MEDG EN ([facility] 15 MINUTES 12:00:00 AM ED Medical, PC) GLUC BLD GLUC MNTR DEV 12/17/2018 MEDGE N ([facility] CLEARED FDA SPEC HOME USE 12:00:00 AM EDT Medical, PC) Documentation of current 12/17/2018 MED GEN ([facility]'s medications (procedure) 12:00:00 AM EDT [facility], PC) Documentation of current 12/17/2018 MED GEN ([facility] medications (procedure) 12:00:00 AM EDT [facility], PC) Documentation of current 12/17/2018 MED GEN ([facility] medications (procedure) 12:00:00 AM EDT [facility], PC) Documentation of current 12/17/2018 MED GEN ([facility]'s medications (procedure) 12:00:00 AM EDT natalie, CARIDAD) Documentation of current 12/17/2018 MED GEN ([facility]ica's medications (procedure) 12:00:00 AM EDT M CARIDAD [facility]) Documentation of current 12/17/2018 MED GEN ([facility]'s medications (procedure) 12:00:00 AM EDT [facility], PC) Documentation of current 12/17/2018 MED GEN ([facility] medications (procedure) 12:00:00 AM EDT [facility], PC) Documentation of current 12/17/2018 MED GEN ([facility] medications (procedure) 12:00:00 AM EDT [facility], PC) Documentation of current 12/17/2018 MED GEN ([facility] medications (procedure) 12:00:00 AM EDT [facility], PC) Documentation of current 12/17/2018 MED GEN ([facility]'s medications (procedure) 12:00:00 AM EDT [facility], PC) Documentation of current 12/17/2018 MED GEN ([facility] medications (procedure) 12:00:00 AM EDT [facility], PC) Documentation of current 12/17/2018 MED GEN ([facility] medications (procedure) 12:00:00 AM EDT [facility], PC) Documentation of current 12/17/2018 MED GEN ([facility]'s medications (procedure) 12:00:00 AM EDT [facility], PC) Documentation of current 12/17/2018 MED GEN ([facility]'s medications (procedure) 12:00:00 AM EDT [facility]) Documentation of current 12/17/2018 MED GEN (Jessica's medications (procedure) 12:00:00 AM EDT natalie PC) Documentation of current 12/17/2018 MED GEN ([facility]'s medications (procedure) 12:00:00 AM EDT M [facility], PC) Documentation of current 12/17/2018 MED GEN ([facility]ica's medications (procedure) 12:00:00 AM EDT M nat[facility]ie PC) Documentation of current 12/17/2018 MED GEN ([facility]ica's medications (procedure) 12:00:00 AM EDT [facility], PC) Documentation of current 12/17/2018 MED GEN ([facility]'s medications (procedure) 12:00:00 AM EDT [facility], PC) Documentation of current 12/17/2018 MED GEN ([facility]'s medications (procedure) 12:00:00 AM EDT M [facility], PC) Documentation of current 12/17/2018 MED GEN ([facility]'s medications (procedure) 12:00:00 AM EDT [facility], PC) Documentation of current 12/17/2018 MED GEN ([facility] medications (procedure) 12:00:00 AM EDT [facility], PC) Documentation of current 12/17/2018 MED GEN ([facility] medications (procedure) 12:00:00 AM EDT [facility], PC) Documentation of current 12/17/2018 MED GEN ([facility] medications (procedure) 12:00:00 AM EDT [facility], PC) Documentation of current 12/17/2018 MED GEN ([facility] medications (procedure) 12:00:00 AM EDT [facility], PC) Documentation of current 12/17/2018 MED GEN ([facility]'s medications (procedure) 12:00:00 AM EDT [facility], PC) Documentation of current 12/17/2018 MED GEN ([facility] medications (procedure) 12:00:00 AM EDT [facility], PC) Documentation of current 12/17/2018 MED GEN ([facility] medications (procedure) 12:00:00 AM EDT [facility], PC) Documentation of current 12/17/2018 MED GEN ([facility]'s medications (procedure) 12:00:00 AM EDT [facility], PC) Documentation of current 12/17/2018 MED GEN ([facility]'s medications (procedure) 12:00:00 AM EDT [facility], PC) Documentation of current 12/17/2018 MED GEN ([facility]'s medications (procedure) 12:00:00 AM EDT M [facility], PC) Documentation of current 12/17/2018 MED GEN (Jess[facility]'s medications (procedure) 12:00:00 AM EDT M [facility], PC) Documentation of current 12/17/2018 MED GEN ([facility] medications (procedure) 12:00:00 AM EDT [facility], PC) Documentation of current 12/17/2018 MED GEN ([facility] medications (procedure) 12:00:00 AM EDT [facility], PC) Documentation of current 12/17/2018 MED GEN ([facility] medications (procedure) 12:00:00 AM EDT [facility], PC) Documentation of current 12/17/2018 MED GEN ([facility] medications (procedure) 12:00:00 AM EDT [facility], PC) Documentation of current 12/17/2018 MED GEN ([facility] medications (procedure) 12:00:00 AM EDT [facility], PC) Documentation of current 12/17/2018 MED GEN ([facility] medications (procedure) 12:00:00 AM EDT [facility], PC) Documentation of current 12/17/2018 MED GEN ([facility]'s medications (procedure) 12:00:00 AM EDT [facility], PC) Documentation of current 12/17/2018 MED GEN ([facility]'s medications (procedure) 12:00:00 AM EDT [facility], PC) Documentation of current 12/17/2018 MED GEN ([facility] medications (procedure) 12:00:00 AM EDT [facility], PC) Documentation of current 12/17/2018 MED GEN ([facility] medications (procedure) 12:00:00 AM EDT [facility], PC) Documentation of current 12/17/2018 MED GEN ([facility] medications (procedure) 12:00:00 AM EDT [facility], PC) Documentation of current 12/17/2018 MED GEN ([facility] medications (procedure) 12:00:00 AM EDT [facility], PC) Documentation of current 12/17/2018 MED GEN ([facility] medications (procedure) 12:00:00 AM EDT [facility], PC) Documentation of current 12/17/2018 MED GEN ([facility] medications (procedure) 12:00:00 AM EDT [facility], PC) Documentation of current 12/17/2018 MED GEN ([facility] medications (procedure) 12:00:00 AM EDT [facility], PC) Documentation of current 12/17/2018 MED GEN ([facility] medications (procedure) 12:00:00 AM EDT [facility], PC) Documentation of current 12/17/2018 MED GEN ([facility] medications (procedure) 12:00:00 AM EDT edical, ) Documentation of current 12/17/2018 MED GEN ([facility] medications (procedure) 12:00:00 AM EDT edical, PC) Documentation of current 12/17/2018 MED GEN ([facility] medications (procedure) 12:00:00 AM EDT edical, ) Documentation of current 12/17/2018 MED GEN ([facility] medications (procedure) 12:00:00 AM EDT edical, PC) Documentation of current 12/17/2018 MED GEN ([facility] medications (procedure) 12:00:00 AM EDT edical, ) Documentation of current 12/17/2018 MED GEN ([facility] medications (procedure) 12:00:00 AM EDT edical, PC) Documentation of current 12/17/2018 MED GEN ([facility]'s medications (procedure) 12:00:00 AM EDT edical, PC) Documentation of current 12/17/2018 MED GEN ([facility]'s medications (procedure) 12:00:00 AM EDT edical, ) Documentation of current 12/17/2018 MED GEN ([facility] medications (procedure) 12:00:00 AM EDT edical, PC) Documentation of current 12/17/2018 MED GEN ([facility] medications (procedure) 12:00:00 AM EDT edical, PC) Documentation of current 12/17/2018 MED GEN ([facility] medications (procedure) 12:00:00 AM EDT edical, PC) Documentation of current 12/17/2018 MED GEN ([facility] medications (procedure) 12:00:00 AM EDT edical, PC) Documentation of current 12/17/2018 MED GEN (Jessica's medications (procedure) 12:00:00 AM EDT edical, PC) OFFICE OUTPATIENT VISIT 12/17/2018 MEDG EN ([facility]'s 15 MINUTES 12:00:00 AM [facility], PC) GLUC BLD GLUC MNTR DEV 12/17/2018 MEDGE N ([facility]'s CLEARED FDA SPEC HOME USE 12:00:00 AM ED Medical, PC) Documentation of current 12/17/2018 MED GEN (Jess[facility]'s medications (procedure) 12:00:00 AM EDT [facility]al[facility], PC) Documentation of current 12/17/2018 MED GEN (Jess[facility]'s medications (procedure) 12:00:00 AM EDT natal[facility], PC) Documentation of current 12/17/2018 MED GEN (Jess[facility]'s medications (procedure) 12:00:00 AM EDT natalie, PC) Documentation of current 12/17/2018 MED GEN (Jess[facility]'s medications (procedure) 12:00:00 AM EDT natalie, PC) Documentation of current 12/17/2018 MED GEN ([facility]'s medications (procedure) 12:00:00 AM EDT [facility]al[facility], PC) Documentation of current 12/17/2018 MED GEN ([facility]'s medications (procedure) 12:00:00 AM EDT natal[facility], PC) Documentation of current 12/17/2018 MED GEN ([facility] medications (procedure) 12:00:00 AM EDT [facility]al[facility], PC) Documentation of current 12/17/2018 MED GEN ([facility]'s medications (procedure) 12:00:00 AM EDT natalie, PC) Documentation of current 12/17/2018 MED GEN ([facility]'s medications (procedure) 12:00:00 AM EDT natalie, PC) Documentation of current 12/17/2018 MED GEN (Jessica's medications (procedure) 12:00:00 AM EDT natalie, PC) Documentation of current 12/17/2018 MED GEN ([facility]'s medications (procedure) 12:00:00 AM EDT [facility]al[facility], PC) Documentation of current 12/17/2018 MED GEN (Jess[facility]'s medications (procedure) 12:00:00 AM EDT natalie, PC) Documentation of current 12/17/2018 MED GEN ([facility] medications (procedure) 12:00:00 AM EDT natal[facility], PC) Documentation of current 12/17/2018 MED GEN ([facility] medications (procedure) 12:00:00 AM EDT natalie, PC) Documentation of current 12/17/2018 MED GEN ([facility] medications (procedure) 12:00:00 AM EDT natalie, PC) Documentation of current 12/17/2018 MED GEN ([facility]'s medications (procedure) 12:00:00 AM EDT [facility], ) Documentation of current 12/17/2018 MED GEN ([facility]'s medications (procedure) 12:00:00 AM EDT edical, PC) Documentation of current 12/17/2018 MED GEN ([facility]'s medications (procedure) 12:00:00 AM EDT edical, PC) Documentation of current 12/17/2018 MED GEN ([facility]'s medications (procedure) 12:00:00 AM EDT edical, PC) Documentation of current 12/17/2018 MED GEN ([facility] medications (procedure) 12:00:00 AM EDT edical, PC) Documentation of current 12/17/2018 MED GEN (Jess[facility]'s medications (procedure) 12:00:00 AM EDT edical, PC) Documentation of current 12/17/2018 MED GEN ([facility] medications (procedure) 12:00:00 AM EDT [facility], PC) Documentation of current 12/17/2018 MED GEN (Jessica's medications (procedure) 12:00:00 AM EDT [facility], PC) Documentation of current 12/17/2018 MED GEN ([facility]'s medications (procedure) 12:00:00 AM EDT [facility], PC) Documentation of current 12/17/2018 MED GEN (Jessica's medications (procedure) 12:00:00 AM EDT [facility], PC) OFFICE OUTPATIENT VISIT 12/17/2018 MEDG EN (Jessica's 15 MINUTES 12:00:00 AM [facility], ) GLUC BLD GLUC MNTR DEV 12/17/2018 MEDGE N ([facility]'s CLEARED FDA SPEC HOME USE 12:00:00 AM ED Medical, PC) Documentation of current 12/17/2018 MED GEN (Jessica's medications (procedure) 12:00:00 AM EDT [facility], PC) Documentation of current 12/17/2018 MED GEN ([facility]'s medications (procedure) 12:00:00 AM EDT edical, PC) Documentation of current 12/17/2018 MED GEN (Jessica's medications (procedure) 12:00:00 AM EDT edical, PC) Documentation of current 12/17/2018 MED GEN (Jess[facility]'s medications (procedure) 12:00:00 AM EDT M edical, PC) Documentation of current 12/17/2018 MED GEN ([facility]'s medications (procedure) 12:00:00 AM EDT natalie, PC) Documentation of current 12/17/2018 MED GEN (Jess[facility]'s medications (procedure) 12:00:00 AM EDT natalie, CARIDAD) Documentation of current 12/17/2018 MED GEN ([facility] medications (procedure) 12:00:00 AM EDT natalie, PC) Documentation of current 12/17/2018 MED GEN ([facility]'s medications (procedure) 12:00:00 AM EDT natalie, PC) Documentation of current 12/17/2018 MED GEN ([facility]'s medications (procedure) 12:00:00 AM EDT natalie, PC) Documentation of current 12/17/2018 MED GEN (Jess[facility]'s medications (procedure) 12:00:00 AM EDT natalie, PC) Documentation of current 12/17/2018 MED GEN (Jess[facility]'s medications (procedure) 12:00:00 AM EDT natalie, PC) Documentation of current 12/17/2018 MED GEN ([facility]'s medications (procedure) 12:00:00 AM EDT natalie, PC) Documentation of current 12/17/2018 MED GEN (Jess[facility]'s medications (procedure) 12:00:00 AM EDT [facility]alie, PC) Documentation of current 12/17/2018 MED GEN ([facility]'s medications (procedure) 12:00:00 AM EDT [facility]alie, PC) Documentation of current 12/17/2018 MED GEN (Jess[facility]'s medications (procedure) 12:00:00 AM EDT natalie PC) Documentation of current 12/17/2018 MED GEN ([facility] medications (procedure) 12:00:00 AM EDT natalie, PC) Documentation of current 12/17/2018 MED GEN ([facility]'s medications (procedure) 12:00:00 AM EDT natalie, PC) Documentation of current 12/17/2018 MED GEN ([facility]'s medications (procedure) 12:00:00 AM EDT [facility], PC) Documentation of current 12/17/2018 MED GEN (Jess[facility]'s medications (procedure) 12:00:00 AM EDT edical, PC) Documentation of current 12/17/2018 MED GEN ([facility]'s medications (procedure) 12:00:00 AM EDT edical, PC) Documentation of current 12/17/2018 MED GEN ([facility] medications (procedure) 12:00:00 AM EDT edical, PC) Documentation of current 12/17/2018 MED GEN (Jess[facility]'s medications (procedure) 12:00:00 AM EDT edical, PC) Documentation of current 12/17/2018 MED GEN ([facility] medications (procedure) 12:00:00 AM EDT edical, PC) Documentation of current 12/17/2018 MED GEN ([facility]'s medications (procedure) 12:00:00 AM EDT [facility], PC) Documentation of current 12/17/2018 MED GEN ([facility]'s medications (procedure) 12:00:00 AM EDT [facility], PC) OFFICE OUTPATIENT VISIT 12/17/2018 MEDG EN ([facility] 15 MINUTES 12:00:00 AM EDT Medical, PC) GLUC BLD GLUC MNTR DEV 12/17/2018 MEDGE N ([facility] CLEARED FDA SPEC HOME USE 12:00:00 AM EDT Medical, PC) Documentation of current 12/17/2018 MED GEN ([facility] medications (procedure) 12:00:00 AM EDT [facility], PC) Documentation of current 12/17/2018 MED GEN ([facility] medications (procedure) 12:00:00 AM EDT [facility], PC) Documentation of current 12/17/2018 MED GEN ([facility] medications (procedure) 12:00:00 AM EDT [facility], PC) Documentation of current 12/17/2018 MED GEN ([facility] medications (procedure) 12:00:00 AM EDT edical, PC) Documentation of current 12/17/2018 MED GEN ([facility] medications (procedure) 12:00:00 AM EDT edical, PC) Documentation of current 12/17/2018 MED GEN ([facility] medications (procedure) 12:00:00 AM EDT edical, PC) Documentation of current 12/17/2018 MED GEN ([facility] medications (procedure) 12:00:00 AM EDT edical, PC) Documentation of current 12/17/2018 MED GEN ([facility] medications (procedure) 12:00:00 AM EDT [facility]alie, PC) Documentation of current 12/17/2018 MED GEN ([facility] medications (procedure) 12:00:00 AM EDT M natalie, PC) Documentation of current 12/17/2018 MED GEN ([facility] medications (procedure) 12:00:00 AM EDT natalie, PC) Documentation of current 12/17/2018 MED GEN ([facility] medications (procedure) 12:00:00 AM EDT natalie, PC) Documentation of current 12/17/2018 MED GEN ([facility] medications (procedure) 12:00:00 AM EDT [facility]ie, PC) Documentation of current 12/17/2018 MED GEN ([facility] medications (procedure) 12:00:00 AM EDT M [facility]ie, PC) Documentation of current 12/17/2018 MED GEN ([facility] medications (procedure) 12:00:00 AM EDT [facility]alie, PC) Documentation of current 12/17/2018 MED GEN ([facility] medications (procedure) 12:00:00 AM EDT natalie, PC) Documentation of current 12/17/2018 MED GEN ([facility] medications (procedure) 12:00:00 AM EDT natalie, PC) Documentation of current 12/17/2018 MED GEN ([facility]'s medications (procedure) 12:00:00 AM EDT natalie, PC) Documentation of current 12/17/2018 MED GEN ([facility]'s medications (procedure) 12:00:00 AM EDT natalie, PC) Documentation of current 12/17/2018 MED GEN (Jessica's medications (procedure) 12:00:00 AM EDT M [facility]alie, PC) Documentation of current 12/17/2018 MED GEN (Jessica's medications (procedure) 12:00:00 AM EDT M [facility]alie, PC) Documentation of current 12/17/2018 MED GEN (Jessica's medications (procedure) 12:00:00 AM EDT M natalie, PC) Documentation of current 12/17/2018 MED GEN ([facility]'s medications (procedure) 12:00:00 AM EDT natalie, PC) Documentation of current 12/17/2018 MED GEN ([facility]/17/[facility] MED GEN ([facility]procedure[facility] current 12/17/2018 MED GEN ([facility] VISIT 12/17/2018 MEDG EN ([facility] 15 MINUTES 12:00:00 AM EDT Medical, ) GLUC BLD GLUC MNTR DEV 12/17/2018 MEDGE N ([facility]ica's CLEARED FDA SPEC HOME USE 12:00:00 AM EDT Medical, ) OFFICE OUTPATIENT VISIT 12/07/2018 MEDG EN ([facility] 15 MINUTES 12:00:00 AM EDT Medical, ) OFFICE OUTPATIENT VISIT 12/07/2018 MEDG EN ([facility] 15 MINUTES 12:00:00 AM EDT Medical, ) OFFICE OUTPATIENT VISIT 12/07/2018 MEDG EN ([facility] 15 MINUTES 12:00:00 AM EDT Medical, ) OFFICE OUTPATIENT VISIT 12/07/2018 MEDG EN ([facility] 15 MINUTES 12:00:00 AM EDT Medical, ) OFFICE OUTPATIENT VISIT 12/07/2018 MEDG EN ([facility] 15 MINUTES 12:00:00 AM EDT Medical, ) OFFICE OUTPATIENT VISIT 12/07/2018 MEDG EN ([facility] 15 MINUTES 12:00:00 AM EDT Medical, ) OFFICE OUTPATIENT VISIT 12/07/2018 MEDG EN ([facility] 15 MINUTES 12:00:00 AM EDT Medical, ) OFFICE OUTPATIENT VISIT 12/07/2018 MEDG EN ([facility] 15 MINUTES 12:00:00 AM EDT Medical, ) OFFICE OUTPATIENT VISIT 12/07/2018 MEDG EN ([facility] 15 MINUTES 12:00:00 AM EDT Medical, PC) OFFICE OUTPATIENT VISIT 12/07/2018 MEDG EN ([facility] 15 MINUTES 12:00:00 AM EDT Medical, PC) OFFICE OUTPATIENT VISIT 12/07/2018 MEDG EN ([facility] 15 MINUTES 12:00:00 AM EDT Medical, ) Documentation of current 08/31/2018 MED GEN ([facility]ica's medications (procedure) 12:00:00 AM EDT edical, PC) Documentation of current 08/31/2018 MED GEN ([facility] medications (procedure) 12:00:00 AM EDT edical, PC) Documentation of current 08/31/2018 MED GEN ([facility]ica[facility] medications (procedure) 12:00:00 AM EDT edical, PC) Documentation of current 08/31/2018 MED GEN ([facility] medications (procedure) 12:00:00 AM EDT edical, PC) Documentation of current 08/31/2018 MED GEN (Jessica[facility] medications (procedure) 12:00:00 AM EDT edical, PC) Documentation of current 08/31/2018 MED GEN ([facility] medications (procedure) 12:00:00 AM EDT edical, PC) Documentation of current 08/31/2018 MED GEN ([facility] medications (procedure) 12:00:00 AM EDT edical, PC) Documentation of current 08/31/2018 MED GEN ([facility] medications (procedure) 12:00:00 AM EDT edical, PC) Documentation of current 08/31/2018 MED GEN ([facility] medications (procedure) 12:00:00 AM EDT edical, PC) Documentation of current 08/31/2018 MED GEN ([facility] medications (procedure) 12:00:00 AM EDT edical, PC) Documentation of current 08/31/2018 MED GEN ([facility] medications (procedure) 12:00:00 AM EDT [facility], PC) Documentation of current 08/31/2018 MED GEN (Jessica's medications (procedure) 12:00:00 AM EDT [facility], PC) OFFICE OUTPATIENT VISIT 08/31/2018 MEDG EN ([facility]ica's 15 MINUTES 12:00:00 AM [facility], PC) Documentation of current 08/31/2018 MED GEN (Jessica's medications (procedure) 12:00:00 AM EDT edical, PC) Documentation of current 08/31/2018 MED GEN (Jessica's medications (procedure) 12:00:00 AM EDT edical, PC) Documentation of current 08/31/2018 MED GEN (Jessica's medications (procedure) 12:00:00 AM EDT natalie, PC) Documentation of current 08/31/2018 MED GEN (Jessica's medications (procedure) 12:00:00 AM EDT natalie, PC) Documentation of current 08/31/2018 MED GEN ([facility] medications (procedure) 12:00:00 AM EDT [facility], PC) Documentation of current 08/31/2018 MED GEN ([facility] medications (procedure) 12:00:00 AM EDT natalie, PC) Documentation of current 08/31/2018 MED GEN ([facility] medications (procedure) 12:00:00 AM EDT natalie, PC) Documentation of current 08/31/2018 MED GEN ([facility] medications (procedure) 12:00:00 AM EDT [facility], PC) Documentation of current 08/31/2018 MED GEN ([facility] medications (procedure) 12:00:00 AM EDT natalie, PC) Documentation of current 08/31/2018 MED GEN ([facility] medications (procedure) 12:00:00 AM EDT natalie, PC) Documentation of current 08/31/2018 MED GEN ([facility] medications (procedure) 12:00:00 AM EDT natalie, PC) Documentation of current 08/31/2018 MED GEN (Jessica's medications (procedure) 12:00:00 AM EDT natalie, PC) OFFICE OUTPATIENT VISIT 08/31/2018 MEDG EN ([facility]'s 15 MINUTES 12:00:00 AM [facility], ) Documentation of current 08/31/2018 MED GEN (Jessica's medications (procedure) 12:00:00 AM EDT natalie, PC) Documentation of current 08/31/2018 MED GEN (Jessica's medications (procedure) 12:00:00 AM EDT natalie, PC) Documentation of current 08/31/2018 MED GEN ([facility]ica's medications (procedure) 12:00:00 AM EDT [facility], [facility]) Documentation of current 08/31/2018 MED GEN ([facility] medications (procedure) 12:00:00 AM EDT demarcoical, PC) Documentation of current 08/31/2018 MED GEN ([facility] medications (procedure) 12:00:00 AM EDT natalie, [facility]) Documentation of current 08/31/2018 MED GEN ([facility] medications (procedure) 12:00:00 AM EDT natalie, [facility]) Documentation of current 08/31/2018 MED GEN ([facility] medications (procedure) 12:00:00 AM EDT natalie, [facility]) Documentation of current 08/31/2018 MED GEN ([facility] medications (procedure) 12:00:00 AM EDT natalie, [facility]) Documentation of current 08/31/2018 MED GEN ([facility] medications (procedure) 12:00:00 AM EDT natalie, [facility]) Documentation of current 08/31/2018 MED GEN ([facility] medications (procedure) 12:00:00 AM EDT natalie, [facility]) Documentation of current 08/31/2018 MED GEN ([facility] medications (procedure) 12:00:00 AM EDT natalie, [facility]) Documentation of current 08/31/2018 MED GEN ([facility] medications (procedure) 12:00:00 AM EDT [facility]alie, [facility]) OFFICE OUTPATIENT VISIT 08/31/2018 MEDG EN ([facility] 15 MINUTES 12:00:00 AM DEMARCO Kyle, PC) Documentation of current 08/31/2018 MED GEN ([facility] medications (procedure) 12:00:00 AM EDT natalie, [facility]) Documentation of current 08/31/2018 MED GEN ([facility] medications (procedure) 12:00:00 AM EDT natalie, PC) Documentation of current 08/31/2018 MED GEN ([facility] medications (procedure) 12:00:00 AM EDT natalie, PC) Documentation of current 08/31/2018 MED GEN ([facility] medications (procedure) 12:00:00 AM EDT natalie, PC) Documentation of current 08/31/2018 MED GEN ([facility] medications (procedure) 12:00:00 AM EDT natalie, [facility]) Documentation of current 08/31/2018 MED GEN ([facility] medications (procedure) 12:00:00 AM EDT natalie, [facility]) Documentation of current 08/31/2018 MED GEN ([facility] medications (procedure) 12:00:00 AM EDT natalie, [facility]) Documentation of current 08/31/2018 MED GEN ([facility] medications (procedure) 12:00:00 AM EDT edical, PC) Documentation of current 08/31/2018 MED GEN ([facility] medications (procedure) 12:00:00 AM EDT edical, PC) Documentation of current 08/31/2018 MED GEN ([facility] medications (procedure) 12:00:00 AM EDT demarcoical, PC) Documentation of current 08/31/2018 MED GEN ([facility] medications (procedure) 12:00:00 AM EDT [facility]co[facility], PC) Documentation of current 08/31/2018 MED GEN ([facility] medications (procedure) 12:00:00 AM EDT [facility]arcoical, PC) OFFICE OUTPATIENT VISIT 08/31/2018 MEDG EN ([facility] 15 MINUTES 12:00:00 AM [facility], ) Documentation of current 08/31/2018 MED GEN ([facility] medications (procedure) 12:00:00 AM EDT demarcoical, PC) Documentation of current 08/31/2018 MED GEN ([facility] medications (procedure) 12:00:00 AM EDT demarcoical, PC) Documentation of current 08/31/2018 MED GEN ([facility] medications (procedure) 12:00:00 AM EDT demarcoical, PC) Documentation of current 08/31/2018 MED GEN ([facility] medications (procedure) 12:00:00 AM EDT [facility]arcoical, PC) Documentation of current 08/31/2018 MED GEN ([facility] medications (procedure) 12:00:00 AM EDT edical, PC) Documentation of current 08/31/2018 MED GEN ([facility] medications (procedure) 12:00:00 AM EDT demarcoical, PC) Documentation of current 08/31/2018 MED GEN ([facility] medications (procedure) 12:00:00 AM EDT edical, PC) Documentation of current 08/31/2018 MED GEN ([facility] medications (procedure) 12:00:00 AM EDT edical, PC) Documentation of current 08/31/2018 MED GEN ([facility] medications (procedure) 12:00:00 AM EDT [facility]arco[facility], PC) Documentation of current 08/31/2018 MED GEN ([facility] medications (procedure) 12:00:00 AM EDT demarcoical, PC) Documentation of current 08/31/2018 MED GEN ([facility] medications (procedure) 12:00:00 AM EDT edical, PC) Documentation of current 08/31/2018 MED GEN ([facility] medications (procedure) 12:00:00 AM EDT demarcoical, ) OFFICE OUTPATIENT VISIT 08/31/2018 MEDG EN ([facility] 15 MINUTES 12:00:00 AM [facility], ) Documentation of current 08/31/2018 MED GEN ([facility] medications (procedure) 12:00:00 AM EDT demarcoical, PC) Documentation of current 08/31/2018 MED GEN ([facility] medications (procedure) 12:00:00 AM EDT demarcoical, PC) Documentation of current 08/31/2018 MED GEN ([facility] medications (procedure) 12:00:00 AM EDT demarcoical, PC) Documentation of current 08/31/2018 MED GEN ([facility] medications (procedure) 12:00:00 AM EDT demarcoical, PC) Documentation of current 08/31/2018 MED GEN ([facility] medications (procedure) 12:00:00 AM EDT edical, PC) Documentation of current 08/31/2018 MED GEN ([facility] medications (procedure) 12:00:00 AM EDT demarcoical, PC) Documentation of current 08/31/2018 MED GEN ([facility] medications (procedure) 12:00:00 AM EDT demarcoical, PC) Documentation of current 08/31/2018 MED GEN ([facility] medications (procedure) 12:00:00 AM EDT demarcoical, PC) Documentation of current 08/31/2018 MED GEN ([facility] medications (procedure) 12:00:00 AM EDT edical, PC) Documentation of current 08/31/2018 MED GEN ([facility] medications (procedure) 12:00:00 AM EDT edical, PC) Documentation of current 08/31/2018 MED GEN ([facility] medications (procedure) 12:00:00 AM EDT demarcoical, PC) Documentation of current 08/31/2018 MED GEN ([facility] medications (procedure) 12:00:00 AM EDT natalie, PC) OFFICE OUTPATIENT VISIT 08/31/2018 MEDG EN ([facility] 15 MINUTES 12:00:00 AM ED [facility], [facility]) Documentation of current 08/31/2018 MED GEN ([facility] medications (procedure) 12:00:00 AM EDT demarcoical, PC) Documentation of current 08/31/2018 MED GEN ([facility] medications (procedure) 12:00:00 AM EDT demarcoical, PC) Documentation of current 08/31/2018 MED GEN ([facility] medications (procedure) 12:00:00 AM EDT demarcoical, PC) Documentation of current 08/31/2018 MED GEN ([facility] medications (procedure) 12:00:00 AM EDT demarcoical, PC) Documentation of current 08/31/2018 MED GEN ([facility] medications (procedure) 12:00:00 AM EDT demarcoical, PC) Documentation of current 08/31/2018 MED GEN ([facility] medications (procedure) 12:00:00 AM EDT demarcoical, PC) Documentation of current 08/31/2018 MED GEN ([facility] medications (procedure) 12:00:00 AM EDT demarcoical, PC) Documentation of current 08/31/2018 MED GEN ([facility] medications (procedure) 12:00:00 AM EDT demarcoical, PC) Documentation of current 08/31/2018 MED GEN ([facility] medications (procedure) 12:00:00 AM EDT demarcoical, PC) Documentation of current 08/31/2018 MED GEN ([facility] medications (procedure) 12:00:00 AM EDT natalie, PC) Documentation of current 08/31/2018 MED GEN ([facility] medications (procedure) 12:00:00 AM EDT demarcoical, PC) Documentation of current 08/31/2018 MED GEN ([facility] medications (procedure) 12:00:00 AM EDT demarcoical, PC) OFFICE OUTPATIENT VISIT 08/31/2018 MEDG EN ([facility] 15 MINUTES 12:00:00 AM ED Medical, PC) Documentation of current 08/31/2018 MED GEN ([facility] medications (procedure) 12:00:00 AM EDT natalie, PC) Documentation of current 08/31/2018 MED GEN ([facility] medications (procedure) 12:00:00 AM EDT natalie, PC) Documentation of current 08/31/2018 MED GEN ([facility] medications (procedure) 12:00:00 AM EDT natalie, PC) Documentation of current 08/31/2018 MED GEN ([facility] medications (procedure) 12:00:00 AM EDT natalie, PC) Documentation of current 08/31/2018 MED GEN ([facility] medications (procedure) 12:00:00 AM EDT natalie, PC) Documentation of current 08/31/2018 MED GEN ([facility] medications (procedure) 12:00:00 AM EDT natalie, PC) Documentation of current 08/31/2018 MED GEN ([facility] medications (procedure) 12:00:00 AM EDT natalie, PC) Documentation of current 08/31/2018 MED GEN ([facility] medications (procedure) 12:00:00 AM EDT natalie, PC) Documentation of current 08/31/2018 MED GEN ([facility] medications (procedure) 12:00:00 AM EDT natalie, PC) Documentation of current 08/31/2018 MED GEN ([facility] medications (procedure) 12:00:00 AM EDT natalie, PC) Documentation of current 08/31/2018 MED GEN ([facility] medications (procedure) 12:00:00 AM EDT natalie, PC) Documentation of current 08/31/2018 MED GEN ([facility] medications (procedure) 12:00:00 AM EDT natalie, PC) Documentation of current 08/31/2018 MED GEN ([facility] medications (procedure) 12:00:00 AM EDT natalie, PC) Documentation of current 08/31/2018 MED GEN ([facility] medications (procedure) 12:00:00 AM EDT natalie, PC) Documentation of current 08/31/2018 MED GEN ([facility] medications (procedure) 12:00:00 AM EDT natalie, PC) Documentation of current 08/31/2018 MED GEN ([facility] medications (procedure) 12:00:00 AM EDT natalie, PC) Documentation of current 08/31/2018 MED GEN ([facility] medications (procedure) 12:00:00 AM EDT natalie, PC) Documentation of current 08/31/2018 MED GEN ([facility] medications (procedure) 12:00:00 AM EDT natalie, PC) Documentation of current 08/31/2018 MED GEN ([facility] medications (procedure) 12:00:00 AM EDT demarcoical, PC) Documentation of current 08/31/2018 MED GEN ([facility] medications (procedure) 12:00:00 AM EDT natalie, PC) Documentation of current 08/31/2018 MED GEN ([facility] medications (procedure) 12:00:00 AM EDT natalie, PC) Documentation of current 08/31/2018 MED GEN ([facility] medications (procedure) 12:00:00 AM EDT natalie, PC) Documentation of current 08/31/2018 MED GEN ([facility] medications (procedure) 12:00:00 AM EDT natalie, PC) Documentation of current 08/31/2018 MED GEN ([facility] medications (procedure) 12:00:00 AM EDT natalie, PC) OFFICE OUTPATIENT VISIT 08/31/2018 MEDG EN ([facility] 15 MINUTES 12:00:00 AM MELISSA Wright PC) Documentation of current 08/31/2018 MED GEN ([facility] medications (procedure) 12:00:00 AM EDT natalie, PC) Documentation of current 08/31/2018 MED GEN ([facility] medications (procedure) 12:00:00 AM EDT Lewis estrada, PC) Documentation of current 08/31/2018 MED GEN ([facility] medications (procedure) 12:00:00 AM EDT natalie, PC) Documentation of current 08/31/2018 MED GEN ([facility] medications (procedure) 12:00:00 AM EDT natalie, PC) Documentation of current 08/31/2018 MED GEN ([facility] medications (procedure) 12:00:00 AM EDT natalie, PC) Documentation of current 08/31/2018 MED GEN ([facility] medications (procedure) 12:00:00 AM EDT natalie, PC) Documentation of current 08/31/2018 MED GEN ([facility] medications (procedure) 12:00:00 AM EDT edical, PC) Documentation of current 08/31/2018 MED GEN ([facility] medications (procedure) 12:00:00 AM EDT edical, PC) Documentation of current 08/31/2018 MED GEN ([facility] medications (procedure) 12:00:00 AM EDT edical, PC) Documentation of current 08/31/2018 MED GEN ([facility] medications (procedure) 12:00:00 AM EDT edical, PC) Documentation of current 08/31/2018 MED GEN ([facility] medications (procedure) 12:00:00 AM EDT edical, PC) Documentation of current 08/31/2018 MED GEN ([facility] medications (procedure) 12:00:00 AM EDT edical, PC) OFFICE OUTPATIENT VISIT 08/31/2018 MEDG EN ([facility] 15 MINUTES 12:00:00 AM [facility], ) Documentation of current 08/31/2018 MED GEN (Jess[facility]'s medications (procedure) 12:00:00 AM EDT edical, PC) Documentation of current 08/31/2018 MED GEN ([facility] medications (procedure) 12:00:00 AM EDT edical, PC) Documentation of current 08/31/2018 MED GEN ([facility] medications (procedure) 12:00:00 AM EDT edical, PC) OFFICE OUTPATIENT VISIT 08/31/2018 MEDG EN ([facility] 15 MINUTES 12:00:00 AM [facility], ) Documentation of current 08/31/2018 MED GEN ([facility] medications (procedure) 12:00:00 AM EDT edical, PC) Documentation of current 08/31/2018 MED GEN ([facility] medications (procedure) 12:00:00 AM EDT edical, PC) Documentation of current 08/31/2018 MED GEN ([facility] medications (procedure) 12:00:00 AM EDT edical, PC) Documentation of current 08/31/2018 MED GEN ([facility] medications (procedure) 12:00:00 AM EDT edical, PC) Documentation of current 08/31/2018 MED GEN ([facility] medications (procedure) 12:00:00 AM EDT natalie, PC) Documentation of current 08/31/2018 MED GEN ([facility] medications (procedure) 12:00:00 AM EDT natalie, PC) Documentation of current 08/31/2018 MED GEN ([facility] medications (procedure) 12:00:00 AM EDT natalie, PC) Documentation of current 08/31/2018 MED GEN ([facility] medications (procedure) 12:00:00 AM EDT natalie, PC) Documentation of current 08/31/2018 MED GEN ([facility] medications (procedure) 12:00:00 AM EDT natalie, PC) Documentation of current 08/31/2018 MED GEN ([facility] medications (procedure) 12:00:00 AM EDT natalie, PC) Documentation of current 08/31/2018 MED GEN ([facility] medications (procedure) 12:00:00 AM EDT natalie, PC) Documentation of current 08/31/2018 MED GEN ([facility] medications (procedure) 12:00:00 AM EDT natalie, PC) Documentation of current 08/31/2018 MED GEN ([facility] medications (procedure) 12:00:00 AM EDT natalie, PC) Documentation of current 08/31/2018 MED GEN ([facility] medications (procedure) 12:00:00 AM EDT natalie, PC) Documentation of current 08/31/2018 MED GEN ([facility] medications (procedure) 12:00:00 AM EDT natalie, PC) Documentation of current 08/31/2018 MED GEN ([facility] medications (procedure) 12:00:00 AM EDT natalie, PC) Documentation of current 08/31/2018 MED GEN ([facility] medications (procedure) 12:00:00 AM EDT natalie, PC) Documentation of current 08/31/2018 MED GEN ([facility] medications (procedure) 12:00:00 AM EDT natalie, PC) Documentation of current 08/31/2018 MED GEN ([facility] medications (procedure) 12:00:00 AM EDT natalie, PC) Documentation of current 08/31/2018 MED GEN ([facility] medications (procedure) 12:00:00 AM EDT edical, ) Documentation of current 08/31/2018 MED GEN ([facility] medications (procedure) 12:00:00 AM EDT edical, PC) OFFICE OUTPATIENT VISIT 08/31/2018 MEDG EN ([facility] 15 MINUTES 12:00:00 AM EDT Medical, PC) OFFICE OUTPATIENT VISIT 08/17/2018 MEDG EN ([facility] 25 MINUTES 12:00:00 AM EDT Medical, ) OFFICE OUTPATIENT VISIT 08/17/2018 MEDG EN ([facility] 25 MINUTES 12:00:00 AM EDT Medical, PC) OFFICE OUTPATIENT VISIT 08/17/2018 MEDG EN ([facility] 25 MINUTES 12:00:00 AM EDT Medical, ) OFFICE OUTPATIENT VISIT 08/17/2018 MEDG EN ([facility] 25 MINUTES 12:00:00 AM EDT Medical, ) OFFICE OUTPATIENT VISIT 08/17/2018 MEDG EN ([facility] 25 MINUTES 12:00:00 AM EDT Medical, ) OFFICE OUTPATIENT VISIT 08/17/2018 MEDG EN ([facility] 25 MINUTES 12:00:00 AM EDT Medical, ) OFFICE OUTPATIENT VISIT 08/17/2018 MEDG EN ([facility] 25 MINUTES 12:00:00 AM EDT Medical, PC) OFFICE OUTPATIENT VISIT 08/17/2018 MEDG EN ([facility] 25 MINUTES 12:00:00 AM EDT Medical, PC) OFFICE OUTPATIENT VISIT 08/17/2018 MEDG EN ([facility] 25 MINUTES 12:00:00 AM EDT Medical, PC) OFFICE OUTPATIENT VISIT 08/17/2018 MEDG EN ([facility] 25 MINUTES 12:00:00 AM EDT Medical, ) OFFICE OUTPATIENT VISIT 08/17/2018 MEDG EN ([facility] 25 MINUTES 12:00:00 AM EDT Medical, ) Documentation of current 07/20/2018 MED GEN ([facility] medications (procedure) 12:00:00 AM EDT natalie, PC) Documentation of current 07/20/2018 MED GEN ([facility] medications (procedure) 12:00:00 AM EDT demarcoical, PC) Documentation of current 07/20/2018 MED GEN ([facility] medications (procedure) 12:00:00 AM EDT ednarciso, PC) Documentation of current 07/20/2018 MED GEN ([facility] medications (procedure) 12:00:00 AM EDT M natalie, PC) Documentation of current 07/20/2018 MED GEN ([facility] medications (procedure) 12:00:00 AM EDT M natalie, [facility]) Documentation of current 07/20/2018 MED GEN ([facility] medications (procedure) 12:00:00 AM EDT M natalie, PC) Documentation of current 07/20/2018 MED GEN ([facility] medications (procedure) 12:00:00 AM EDT M natalie, PC) Documentation of current 07/20/2018 MED GEN ([facility] medications (procedure) 12:00:00 AM EDT M natalie, PC) Documentation of current 07/20/2018 MED GEN ([facility] medications (procedure) 12:00:00 AM EDT M natalie, PC) Documentation of current 07/20/2018 MED GEN ([facility] medications (procedure) 12:00:00 AM EDT Lewis estrada, PC) Documentation of current 07/20/2018 MED GEN ([facility] medications (procedure) 12:00:00 AM EDT Lewis estrada, PC) Documentation of current 07/20/2018 MED GEN ([facility] medications (procedure) 12:00:00 AM EDT M natalie, PC) Documentation of current 07/20/2018 MED GEN ([facility] medications (procedure) 12:00:00 AM EDT M natalie, PC) Documentation of current 07/20/2018 MED GEN ([facility] medications (procedure) 12:00:00 AM EDT Lewis estrada, PC) Documentation of current 07/20/2018 MED GEN ([facility] medications (procedure) 12:00:00 AM EDT M natalie, PC) Documentation of current 07/20/2018 MED GEN ([facility] medications (procedure) 12:00:00 AM EDT M natalie, PC) Documentation of current 07/20/2018 MED GEN ([facility] medications (procedure) 12:00:00 AM EDT M natalie, PC) Documentation of current 07/20/2018 MED GEN ([facility] medications (procedure) 12:00:00 AM EDT M natalie, PC) Documentation of current 07/20/2018 MED GEN ([facility] medications (procedure) 12:00:00 AM EDT natalie, PC) Documentation of current 07/20/2018 MED GEN ([facility] medications (procedure) 12:00:00 AM EDT natalie, PC) Documentation of current 07/20/2018 MED GEN ([facility] medications (procedure) 12:00:00 AM EDT natalie, PC) OFFICE OUTPATIENT VISIT 07/20/2018 MEDG EN ([facility] 25 MINUTES 12:00:00 AM EDT Medical, PC) Documentation of current 07/20/2018 MED GEN ([facility] medications (procedure) 12:00:00 AM EDT natalie, PC) Documentation of current 07/20/2018 MED GEN ([facility] medications (procedure) 12:00:00 AM EDT natalie, PC) Documentation of current 07/20/2018 MED GEN ([facility] medications (procedure) 12:00:00 AM EDT natalie, PC) Documentation of current 07/20/2018 MED GEN ([facility] medications (procedure) 12:00:00 AM EDT natalie, PC) Documentation of current 07/20/2018 MED GEN ([facility] medications (procedure) 12:00:00 AM EDT natalie, PC) Documentation of current 07/20/2018 MED GEN ([facility] medications (procedure) 12:00:00 AM EDT natalie, PC) Documentation of current 07/20/2018 MED GEN ([facility] medications (procedure) 12:00:00 AM EDT natalie, PC) Documentation of current 07/20/2018 MED GEN ([facility] medications (procedure) 12:00:00 AM EDT natalie, PC) Documentation of current 07/20/2018 MED GEN ([facility] medications (procedure) 12:00:00 AM EDT demarcoical, PC) Documentation of current 07/20/2018 MED GEN ([facility] medications (procedure) 12:00:00 AM EDT natalie, PC) Documentation of current 07/20/2018 MED GEN ([facility] medications (procedure) 12:00:00 AM EDT natalie, PC) Documentation of current 07/20/2018 MED GEN ([facility] medications (procedure) 12:00:00 AM EDT natalie, PC) Documentation of current 07/20/2018 MED GEN ([facility] medications (procedure) 12:00:00 AM EDT edical, PC) Documentation of current 07/20/2018 MED GEN ([facility] medications (procedure) 12:00:00 AM EDT edical, PC) Documentation of current 07/20/2018 MED GEN ([facility] medications (procedure) 12:00:00 AM EDT edical, PC) Documentation of current 07/20/2018 MED GEN ([facility] medications (procedure) 12:00:00 AM EDT demarcoical, PC) Documentation of current 07/20/2018 MED GEN ([facility] medications (procedure) 12:00:00 AM EDT edical, PC) Documentation of current 07/20/2018 MED GEN ([facility] medications (procedure) 12:00:00 AM EDT demarcoical, PC) Documentation of current 07/20/2018 MED GEN ([facility] medications (procedure) 12:00:00 AM EDT natalie, PC) Documentation of current 07/20/2018 MED GEN ([facility] medications (procedure) 12:00:00 AM EDT natalie, PC) Documentation of current 07/20/2018 MED GEN ([facility] medications (procedure) 12:00:00 AM EDT natalie, PC) OFFICE OUTPATIENT VISIT 07/20/2018 MEDG EN ([facility]20/2018 MED GEN ([facility] medications (procedure) 12:00:00 AM EDT natalie, PC) Documentation of current 07/20/2018 MED GEN ([facility] medications (procedure) 12:00:00 AM EDT edical, PC) Documentation of current 07/20/2018 MED GEN ([facility] medications (procedure) 12:00:00 AM EDT edical, PC) Documentation of current 07/20/2018 MED GEN ([facility] medications (procedure) 12:00:00 AM EDT demarcoical, PC) Documentation of current 07/20/2018 MED GEN ([facility] medications (procedure) 12:00:00 AM EDT Lewis estrada, [facility]) Documentation of current 07/20/2018 MED GEN ([facility] medications (procedure) 12:00:00 AM EDT Lewis estrada, [facility]) Documentation of current 07/20/2018 MED GEN ([facility] medications (procedure) 12:00:00 AM EDT [facility]) Documentation of current 07/20/2018 MED GEN ([facility] medications (procedure) 12:00:00 AM EDT Lewis estrada, PC) Documentation of current 07/20/2018 MED GEN ([facility] medications (procedure) 12:00:00 AM EDT Lewis estrada, PC) Documentation of current 07/20/2018 MED GEN ([facility] medications (procedure) 12:00:00 AM EDT Lewis estrada, PC) Documentation of current 07/20/2018 MED GEN ([facility] medications (procedure) 12:00:00 AM EDT Lewis estrada, PC) Documentation of current 07/20/2018 MED GEN ([facility] medications (procedure) 12:00:00 AM EDT Lewis estrada, [facility]) Documentation of current 07/20/2018 MED GEN ([facility] medications (procedure) 12:00:00 AM EDT Lewis estrada, PC) Documentation of current 07/20/2018 MED GEN ([facility] medications (procedure) 12:00:00 AM EDT [facility]) Documentation of current 07/20/2018 MED GEN ([facility] medications (procedure) 12:00:00 AM EDT Lewis estrada, PC) Documentation of current 07/20/2018 MED GEN ([facility] medications (procedure) 12:00:00 AM EDT [facility]) Documentation of current 07/20/2018 MED GEN ([facility] medications (procedure) 12:00:00 AM EDT Lewis estraad, PC) Documentation of current 07/20/2018 MED GEN ([facility] medications (procedure) 12:00:00 AM EDT Lewis estrada PC) Documentation of current 07/20/2018 MED GEN ([facility] medications (procedure) 12:00:00 AM EDT Lewis estrada, PC) Documentation of current 07/20/2018 MED GEN ([facility] medications (procedure) 12:00:00 AM EDT Lewis estrada, PC) Documentation of current 07/20/2018 MED GEN ([facility] medications (procedure) 12:00:00 AM EDT Lewis estrada, [facility]) OFFICE OUTPATIENT VISIT 07/20/2018 MEDG EN ([facility] 25 MINUTES 12:00:00 AM EDT Kyle, [facility]) Documentation of current 07/20/2018 MED GEN ([facility] medications (procedure) 12:00:00 AM EDT natalie, PC) Documentation of current 07/20/2018 MED GEN ([facility] medications (procedure) 12:00:00 AM EDT natalie, PC) Documentation of current 07/20/2018 MED GEN ([facility] medications (procedure) 12:00:00 AM EDT natalie, PC) Documentation of current 07/20/2018 MED GEN ([facility] medications (procedure) 12:00:00 AM EDT natalie, PC) Documentation of current 07/20/2018 MED GEN ([facility] medications (procedure) 12:00:00 AM EDT Lewis estrada, PC) Documentation of current 07/20/2018 MED GEN ([facility] medications (procedure) 12:00:00 AM EDT Lewis estrada, PC) Documentation of current 07/20/2018 MED GEN ([facility] medications (procedure) 12:00:00 AM EDT natalie, PC) Documentation of current 07/20/2018 MED GEN ([facility] medications (procedure) 12:00:00 AM EDT Lewis estrada, PC) Documentation of current 07/20/2018 MED GEN ([facility] medications (procedure) 12:00:00 AM EDT Lewis estrada, PC) Documentation of current 07/20/2018 MED GEN ([facility] medications (procedure) 12:00:00 AM EDT Lewis estrada, PC) Documentation of current 07/20/2018 MED GEN ([facility] medications (procedure) 12:00:00 AM EDT natalie, PC) Documentation of current 07/20/2018 MED GEN ([facility] medications (procedure) 12:00:00 AM EDT Lewis estrada, PC) Documentation of current 07/20/2018 MED GEN ([facility] medications (procedure) 12:00:00 AM EDT Lewis estrada, PC) Documentation of current 07/20/2018 MED GEN ([facility] medications (procedure) 12:00:00 AM EDT Lewis estrada, [facility]) Documentation of current 07/20/2018 MED GEN ([facility] medications (procedure) 12:00:00 AM EDT Lewis estrada, [facility]) Documentation of current 07/20/2018 MED GEN ([facility] medications (procedure) 12:00:00 AM EDT Lewis estrada, PC) Documentation of current 07/20/2018 MED GEN ([facility] medications (procedure) 12:00:00 AM EDT Lewis estrada, PC) Documentation of current 07/20/2018 MED GEN ([facility] medications (procedure) 12:00:00 AM EDT Lewis estrada, PC) Documentation of current 07/20/2018 MED GEN ([facility] (procedure) 12:00:00 AM EDT Lewis estrada, CARIDAD) Documentation of current 07/20/2018 MED GEN ([facility] (procedure) 12:00:00 AM EDT Lewis estrada, CARIDAD) Documentation of current 07/20/2018 MED GEN ([facility] (procedure) 12:00:00 AM EDT Lewis estrada, CARIDAD) OFFICE OUTPATIENT VISIT 07/20/2018 MEDG EN ([facility] 25 MINUTES 12:00:00 AM CARIDAD Durán) Documentation of current 07/20/2018 MED GEN ([facility] medications (procedure) 12:00:00 AM EDT Lewis estrada, CARIDAD) Documentation of current 07/20/2018 MED GEN ([facility] (procedure) 12:00:00 AM EDT Lewis estrada, CARIDAD) Documentation of current 07/20/2018 MED GEN ([facility] (procedure) 12:00:00 AM EDT Lewis estrada, PC) Documentation of current 07/20/2018 MED GEN ([facility] (procedure) 12:00:00 AM EDT Lewis estrada, PC) Documentation of current 07/20/2018 MED GEN ([facility] (procedure) 12:00:00 AM EDT Lewis estrada, PC) Documentation of current 07/20/2018 MED GEN ([facility] (procedure) 12:00:00 AM EDT Lewis estrada, PC) Documentation of current 07/20/2018 MED GEN ([facility] (procedure) 12:00:00 AM EDT natalie, PC) Documentation of current 07/20/2018 MED GEN ([facility] (procedure) 12:00:00 AM EDT M natalie, PC) Documentation of current 07/20/2018 MED GEN ([facility] (procedure) 12:00:00 AM EDT natalie, PC) Documentation of current 07/20/2018 MED GEN ([facility] (procedure) 12:00:00 AM EDT natalie, PC) Documentation of current 07/20/2018 MED GEN ([facility] (procedure) 12:00:00 AM EDT natalie, PC) Documentation of current 07/20/2018 MED GEN ([facility] (procedure) 12:00:00 AM EDT natalie, PC) Documentation of current 07/20/2018 MED GEN ([facility] (procedure) 12:00:00 AM EDT natalie, PC) Documentation of current 07/20/2018 MED GEN ([facility] (procedure) 12:00:00 AM EDT natalie, PC) Documentation of current 07/20/2018 MED GEN ([facility] (procedure) 12:00:00 AM EDT natalie, PC) Documentation of current 07/20/2018 MED GEN ([facility] (procedure) 12:00:00 AM EDT natalie, PC) Documentation of current 07/20/2018 MED GEN ([facility] (procedure) 12:00:00 AM EDT natalie, PC) Documentation of current 07/20/2018 MED GEN ([facility] (procedure) 12:00:00 AM EDT natalie, PC) Documentation of current 07/20/2018 MED GEN ([facility] (procedure) 12:00:00 AM EDT natalie, PC) Documentation of current 07/20/2018 MED GEN ([facility] (procedure) 12:00:00 AM EDT natalie, PC) Documentation of current 07/20/2018 MED GEN ([facility] (procedure) 12:00:00 AM EDT natalie, PC) OFFICE OUTPATIENT VISIT 07/20/2018 MEDG EN ([facility] 25 MINUTES 12:00:00 AM EDT Medical, PC) Documentation of current 07/20/2018 MED GEN ([facility] medications (procedure) 12:00:00 AM EDT demarcoical, PC) Documentation of current 07/20/2018 MED GEN ([facility] (procedure) 12:00:00 AM EDT demarcoical, PC) Documentation of current 07/20/2018 MED GEN ([facility] (procedure) 12:00:00 AM EDT edical, PC) Documentation of current 07/20/2018 MED GEN ([facility] (procedure) 12:00:00 AM EDT demarcoical, PC) Documentation of current 07/20/2018 MED GEN ([facility] (procedure) 12:00:00 AM EDT edical, PC) Documentation of current 07/20/2018 MED GEN ([facility] (procedure) 12:00:00 AM EDT edical, PC) Documentation of current 07/20/2018 MED GEN ([facility] (procedure) 12:00:00 AM EDT demarcoical, PC) Documentation of current 07/20/2018 MED GEN ([facility] (procedure) 12:00:00 AM EDT demarcoical, PC) Documentation of current 07/20/2018 MED GEN ([facility] (procedure) 12:00:00 AM EDT demarcoical, PC) Documentation of current 07/20/2018 MED GEN ([facility] (procedure) 12:00:00 AM EDT demarcoical, PC) Documentation of current 07/20/2018 MED GEN ([facility] (procedure) 12:00:00 AM EDT demarcoical, PC) Documentation of current 07/20/2018 MED GEN ([facility] (procedure) 12:00:00 AM EDT edical, PC) Documentation of current 07/20/2018 MED GEN ([facility] (procedure) 12:00:00 AM EDT edical, PC) Documentation of current 07/20/2018 MED GEN ([facility] (procedure) 12:00:00 AM EDT edical, PC) Documentation of current 07/20/2018 MED GEN ([facility] (procedure) 12:00:00 AM EDT natalie, PC) Documentation of current 07/20/2018 MED GEN ([facility] (procedure) 12:00:00 AM EDT natalie, PC) Documentation of current 07/20/2018 MED GEN ([facility] (procedure) 12:00:00 AM EDT natalie, PC) Documentation of current 07/20/2018 MED GEN ([facility] (procedure) 12:00:00 AM EDT natalie, PC) Documentation of current 07/20/2018 MED GEN ([facility] (procedure) 12:00:00 AM EDT natalie, PC) Documentation of current 07/20/2018 MED GEN ([facility] (procedure) 12:00:00 AM EDT natalie, PC) Documentation of current 07/20/2018 MED GEN ([facility] (procedure) 12:00:00 AM EDT natalie, PC) OFFICE OUTPATIENT VISIT 07/20/2018 MEDG EN ([facility] 25 MINUTES 12:00:00 AM EDT Kyle, PC) Documentation of current 07/20/2018 MED GEN ([facility] (procedure) 12:00:00 AM EDT natalie, PC) Documentation of current 07/20/2018 MED GEN ([facility] (procedure) 12:00:00 AM EDT natalie, PC) Documentation of current 07/20/2018 MED GEN ([facility] (procedure) 12:00:00 AM EDT natalie, PC) Documentation of current 07/20/2018 MED GEN ([facility] (procedure) 12:00:00 AM EDT natalie, PC) Documentation of current 07/20/2018 MED GEN ([facility] (procedure) 12:00:00 AM EDT demarcoical, PC) Documentation of current 07/20/2018 MED GEN ([facility] (procedure) 12:00:00 AM EDT natalie, PC) Documentation of current 07/20/2018 MED GEN ([facility] (procedure) 12:00:00 AM EDT demarcoical, PC) Documentation of current 07/20/2018 MED GEN ([facility] (procedure) 12:00:00 AM EDT Lewis estrada, PC) Documentation of current 07/20/2018 MED GEN ([facility] (procedure) 12:00:00 AM EDT CARIDAD Hsu) Documentation of current 07/20/2018 MED GEN ([facility] (procedure) 12:00:00 AM EDT CARIDAD Hsu) Documentation of current 07/20/2018 MED GEN ([facility] (procedure) 12:00:00 AM EDT CARIDAD Hsu) Documentation of current 07/20/2018 MED GEN ([facility] (procedure) 12:00:00 AM EDT CARIDAD Hsu) Documentation of current 07/20/2018 MED GEN ([facility] (procedure) 12:00:00 AM EDT CARIDAD Hsu) Documentation of current 07/20/2018 MED GEN ([facility] (procedure) 12:00:00 AM EDT CARIDAD Hsu) Documentation of current 07/20/2018 MED GEN ([facility] (procedure) 12:00:00 AM EDT CARIDAD Hsu) Documentation of current 07/20/2018 MED GEN ([facility] (procedure) 12:00:00 AM EDT CARIDAD Hsu) Documentation of current 07/20/2018 MED GEN ([facility] (procedure) 12:00:00 AM EDT CARIDAD Hsu) Documentation of current 07/20/2018 MED GEN ([facility] (procedure) 12:00:00 AM EDT CARIDAD Hsu) Documentation of current 07/20/2018 MED GEN ([facility] (procedure) 12:00:00 AM EDT CARIDAD Hsu) Documentation of current 07/20/2018 MED GEN ([facility] (procedure) 12:00:00 AM EDT CARIDAD Hsu) Documentation of current 07/20/2018 MED GEN ([facility] (procedure) 12:00:00 AM EDT CARIDAD Hsu) OFFICE OUTPATIENT VISIT 07/20/2018 MEDG EN ([facility] 25 MINUTES 12:00:00 AM CARIDAD Durán) Documentation of current 07/20/2018 MED GEN ([facility] (procedure) 12:00:00 AM EDT CARIDAD Hsu) Documentation of current 07/20/2018 MED GEN ([facility] (procedure) 12:00:00 AM EDT M natalie, PC) Documentation of current 07/20/2018 MED GEN ([facility] (procedure) 12:00:00 AM EDT M natalie, PC) Documentation of current 07/20/2018 MED GEN ([facility] (procedure) 12:00:00 AM EDT M natalie, PC) Documentation of current 07/20/2018 MED GEN ([facility] (procedure) 12:00:00 AM EDT natalie, PC) Documentation of current 07/20/2018 MED GEN ([facility] (procedure) 12:00:00 AM EDT M natalie, PC) Documentation of current 07/20/2018 MED GEN ([facility] (procedure) 12:00:00 AM EDT M natalie, PC) Documentation of current 07/20/2018 MED GEN ([facility] (procedure) 12:00:00 AM EDT natalie, PC) Documentation of current 07/20/2018 MED GEN ([facility] (procedure) 12:00:00 AM EDT natalie, PC) Documentation of current 07/20/2018 MED GEN ([facility] (procedure) 12:00:00 AM EDT Lewis estrada, PC) Documentation of current 07/20/2018 MED GEN ([facility] (procedure) 12:00:00 AM EDT natalie, PC) Documentation of current 07/20/2018 MED GEN ([facility] (procedure) 12:00:00 AM EDT Lewis estrada, PC) Documentation of current 07/20/2018 MED GEN ([facility] (procedure) 12:00:00 AM EDT M natalie, PC) Documentation of current 07/20/2018 MED GEN ([facility] (procedure) 12:00:00 AM EDT M natalie, PC) Documentation of current 07/20/2018 MED GEN ([facility] (procedure) 12:00:00 AM EDT M natalie, PC) Documentation of current 07/20/2018 MED GEN ([facility] (procedure) 12:00:00 AM EDT M natalie, PC) Documentation of current 07/20/2018 MED GEN ([facility] (procedure) 12:00:00 AM EDT Lewis estrada, PC) Documentation of current 07/20/2018 MED GEN ([facility] (procedure) 12:00:00 AM EDT M natalie, PC) Documentation of current 07/20/2018 MED GEN ([facility] (procedure) 12:00:00 AM EDT M natalie, PC) Documentation of current 07/20/2018 MED GEN ([facility] (procedure) 12:00:00 AM EDT natalie, PC) Documentation of current 07/20/2018 MED GEN ([facility] (procedure) 12:00:00 AM EDT natalie, PC) Documentation of current 07/20/2018 MED GEN ([facility] (procedure) 12:00:00 AM EDT M natalie, PC) Documentation of current 07/20/2018 MED GEN ([facility] (procedure) 12:00:00 AM EDT natalie, PC) Documentation of current 07/20/2018 MED GEN ([facility] (procedure) 12:00:00 AM EDT natalie, PC) Documentation of current 07/20/2018 MED GEN ([facility] (procedure) 12:00:00 AM EDT natalie, PC) Documentation of current 07/20/2018 MED GEN ([facility] (procedure) 12:00:00 AM EDT natalie, PC) Documentation of current 07/20/2018 MED GEN ([facility] (procedure) 12:00:00 AM EDT Lewis estrada, PC) Documentation of current 07/20/2018 MED GEN ([facility] (procedure) 12:00:00 AM EDT Lewis estrada, PC) Documentation of current 07/20/2018 MED GEN ([facility] (procedure) 12:00:00 AM EDT M natalie, PC) Documentation of current 07/20/2018 MED GEN ([facility] (procedure) 12:00:00 AM EDT M natalie, PC) Documentation of current 07/20/2018 MED GEN ([facility] (procedure) 12:00:00 AM EDT M natalie, PC) Documentation of current 07/20/2018 MED GEN ([facility] (procedure) 12:00:00 AM EDT natalie, PC) Documentation of current 07/20/2018 MED GEN ([facility] (procedure) 12:00:00 AM EDT natalie, PC) Documentation of current 07/20/2018 MED GEN ([facility] (procedure) 12:00:00 AM EDT demarcoical, PC) Documentation of current 07/20/2018 MED GEN ([facility] (procedure) 12:00:00 AM EDT demarcoical, PC) Documentation of current 07/20/2018 MED GEN ([facility] (procedure) 12:00:00 AM EDT natalie, PC) Documentation of current 07/20/2018 MED GEN ([facility] (procedure) 12:00:00 AM EDT natalie, PC) Documentation of current 07/20/2018 MED GEN ([facility] (procedure) 12:00:00 AM EDT demarcoical, PC) Documentation of current 07/20/2018 MED GEN ([facility] (procedure) 12:00:00 AM EDT natalie, PC) Documentation of current 07/20/2018 MED GEN ([facility] (procedure) 12:00:00 AM EDT natalie, PC) Documentation of current 07/20/2018 MED GEN ([facility] (procedure) 12:00:00 AM EDT natalie, PC) Documentation of current 07/20/2018 MED GEN ([facility] (procedure) 12:00:00 AM EDT natalie, PC) OFFICE OUTPATIENT VISIT 07/20/2018 MEDG EN ([facility] 25 MINUTES 12:00:00 AM EDT Kyle, PC) Documentation of current 07/20/2018 MED GEN ([facility] medications (procedure) 12:00:00 AM EDT natalie, PC) Documentation of current 07/20/2018 MED GEN ([facility] (procedure) 12:00:00 AM EDT natalie, PC) Documentation of current 07/20/2018 MED GEN ([facility] (procedure) 12:00:00 AM EDT demarcoical, PC) Documentation of current 07/20/2018 MED GEN ([facility] (procedure) 12:00:00 AM EDT Lewis estrada, CARIDAD) Documentation of current 07/20/2018 MED GEN ([facility] (procedure) 12:00:00 AM EDT Lewis estrada, CARIDAD) Documentation of current 07/20/2018 MED GEN ([facility] (procedure) 12:00:00 AM EDT Lewis estrada, CARIDAD) Documentation of current 07/20/2018 MED GEN ([facility] (procedure) 12:00:00 AM EDT Lewis estrada, PC) Documentation of current 07/20/2018 MED GEN ([facility] (procedure) 12:00:00 AM EDT Lewis estrada, PC) Documentation of current 07/20/2018 MED GEN ([facility] (procedure) 12:00:00 AM EDT Lewis estrada, PC) Documentation of current 07/20/2018 MED GEN ([facility] (procedure) 12:00:00 AM EDT Lewis estrada, PC) Documentation of current 07/20/2018 MED GEN ([facility] (procedure) 12:00:00 AM EDT Lewis estrada, CARIDAD) Documentation of current 07/20/2018 MED GEN ([facility] (procedure) 12:00:00 AM EDT Lewis estrada, PC) Documentation of current 07/20/2018 MED GEN ([facility] (procedure) 12:00:00 AM EDT Lewis estrada, CARIDAD) Documentation of current 07/20/2018 MED GEN ([facility] (procedure) 12:00:00 AM EDT Lewis estrada, PC) Documentation of current 07/20/2018 MED GEN ([facility] (procedure) 12:00:00 AM EDT CARIDAD Hsu) Documentation of current 07/20/2018 MED GEN ([facility] medications (procedure) 12:00:00 AM EDT Lewis estrada, PC) Documentation of current 07/20/2018 MED GEN ([facility] medications (procedure) 12:00:00 AM EDT Lewis estrada, CARIDAD) Documentation of current 07/20/2018 MED GEN ([facility] (procedure) 12:00:00 AM EDT Lewis estrada, PC) Documentation of current 07/20/2018 MED GEN ([facility] (procedure) 12:00:00 AM EDT Lewis estrada, PC) Documentation of current 07/20/2018 MED GEN ([facility] (procedure) 12:00:00 AM EDT Lewis estrada, PC) Documentation of current 07/20/2018 MED GEN ([facility] (procedure) 12:00:00 AM EDT Lewis estrada, CARIDAD) OFFICE OUTPATIENT VISIT 07/20/2018 MEDG EN ([facility] 25 MINUTES 12:00:00 AM EDT Kyle, PC) Documentation of current 07/20/2018 MED GEN ([facility] (procedure) 12:00:00 AM EDT natalie, PC) Documentation of current 07/20/2018 MED GEN ([facility] (procedure) 12:00:00 AM EDT natalie, PC) Documentation of current 07/20/2018 MED GEN ([facility] (procedure) 12:00:00 AM EDT natalie, PC) Documentation of current 07/20/2018 MED GEN ([facility] (procedure) 12:00:00 AM EDT Lewis estrada, PC) Documentation of current 07/20/2018 MED GEN ([facility] (procedure) 12:00:00 AM EDT Lewis estrada, PC) Documentation of current 07/20/2018 MED GEN ([facility] (procedure) 12:00:00 AM EDT natalie, PC) Documentation of current 07/20/2018 MED GEN ([facility] (procedure) 12:00:00 AM EDT Lewis estrada, PC) Documentation of current 07/20/2018 MED GEN ([facility] (procedure) 12:00:00 AM EDT Lewis estrada, PC) Documentation of current 07/20/2018 MED GEN ([facility] (procedure) 12:00:00 AM EDT Lewis estrada, PC) Documentation of current 07/20/2018 MED GEN ([facility] medications (procedure) 12:00:00 AM EDT natalie, PC) Documentation of current 07/20/2018 MED GEN ([facility] medications (procedure) 12:00:00 AM EDT Lewis estrada, PC) Documentation of current 07/20/2018 MED GEN ([facility] medications (procedure) 12:00:00 AM EDT natalie, PC) Documentation of current 07/20/2018 MED GEN ([facility] (procedure) 12:00:00 AM EDT natalie, PC) Documentation of current 07/20/2018 MED GEN ([facility] (procedure) 12:00:00 AM EDT demarcoical, PC) Documentation of current 07/20/2018 MED GEN ([facility] (procedure) 12:00:00 AM EDT demarcoical, PC) Documentation of current 07/20/2018 MED GEN ([facility] (procedure) 12:00:00 AM EDT edical, PC) Documentation of current 07/20/2018 MED GEN ([facility] medications (procedure) 12:00:00 AM EDT demarcoical, PC) Documentation of current 07/20/2018 MED GEN ([facility] (procedure) 12:00:00 AM EDT natalie, PC) Documentation of current 07/20/2018 MED GEN ([facility] (procedure) 12:00:00 AM EDT natalie, PC) Documentation of current 07/20/2018 MED GEN ([facility] (procedure) 12:00:00 AM EDT natalie, PC) Documentation of current 07/20/2018 MED GEN ([facility] (procedure) 12:00:00 AM EDT natalie, PC) OFFICE OUTPATIENT VISIT 07/20/2018 MEDG EN ([facility] 25 MINUTES 12:00:00 AM DEMARCOT Kyle, PC) Documentation of current 07/20/2018 MED GEN ([facility] medications (procedure) 12:00:00 AM EDT natalie, PC) Documentation of current 07/20/2018 MED GEN ([facility] (procedure) 12:00:00 AM EDT natalie, PC) Documentation of current 07/20/2018 MED GEN ([facility] (procedure) 12:00:00 AM EDT demarcoical, PC) Documentation of current 07/20/2018 MED GEN ([facility] (procedure) 12:00:00 AM EDT natalie, PC) Documentation of current 07/20/2018 MED GEN ([facility] (procedure) 12:00:00 AM EDT demarcoical, PC) Documentation of current 07/20/2018 MED GEN ([facility] (procedure) 12:00:00 AM EDT Lewis estrada, PC) Documentation of current 07/20/2018 MED GEN ([facility] (procedure) 12:00:00 AM EDT Lewis estrada, PC) Documentation of current 07/20/2018 MED GEN ([facility] (procedure) 12:00:00 AM EDT Lewis estrada, PC) Documentation of current 07/20/2018 MED GEN ([facility] (procedure) 12:00:00 AM EDT natalie, PC) Documentation of current 07/20/2018 MED GEN ([facility] medications (procedure) 12:00:00 AM EDT natalie, PC) Documentation of current 07/20/2018 MED GEN ([facility] medications (procedure) 12:00:00 AM EDT Lewis estrada, PC) Documentation of current 07/20/2018 MED GEN ([facility] (procedure) 12:00:00 AM EDT Lewis estrada, PC) Documentation of current 07/20/2018 MED GEN ([facility] medications (procedure) 12:00:00 AM EDT natalie, PC) Documentation of current 07/20/2018 MED GEN ([facility] (procedure) 12:00:00 AM EDT natalie, PC) Documentation of current 07/20/2018 MED GEN ([facility] (procedure) 12:00:00 AM EDT natalie, PC) Documentation of current 07/20/2018 MED GEN ([facility] (procedure) 12:00:00 AM EDT Lewis estrada, PC) Documentation of current 07/20/2018 MED GEN ([facility] (procedure) 12:00:00 AM EDT Lewis estrada, PC) Documentation of current 07/20/2018 MED GEN ([facility] (procedure) 12:00:00 AM EDT Lewis estrada, PC) Documentation of current 07/20/2018 MED GEN ([facility] (procedure) 12:00:00 AM EDT M natalie, PC) Documentation of current 07/20/2018 MED GEN ([facility] (procedure) 12:00:00 AM EDT Lewis estrada, PC) Documentation of current 07/20/2018 MED GEN ([facility] medications (procedure) 12:00:00 AM EDT CARIDAD [facility]su) OFFICE OUTPATIENT VISIT 07/20/2018 MEDG EN ([facility] 25 MINUTES 12[facility]00:[facility] Psychiatric Diagnostic 07/13/2018 NEXTG EN ([facility] (45+ Min) 12:00:00 AM EDT [facility] - 07/13/2018 Center) 12:00:00 AM EDT Documentation of current 06/01/2018 MED GEN ([facility] medications (procedure) 12:00:00 AM CARIDAD Chavarria) Documentation of current 06/01/2018 MED GEN ([facility] medications (procedure) 12:00:00 AM CARIDAD [place]) Documentation of current 06/01/2018 MED GEN ([facility] medications (procedure) 12:00:00 AM CARIDAD [place]) Documentation of current 06/01/2018 MED GEN ([facility] medications (procedure) 12:00:00 AM CARIDAD [place]) Documentation of current 06/01/2018 MED GEN ([facility] medications (procedure) 12:00:00 AM CARIDAD [place]) Documentation of current 06/01/2018 MED GEN ([facility] medications (procedure) 12:00:00 AM CARIDAD [place]av[place]) Documentation of current 06/01/2018 MED GEN ([facility] medications (procedure) 12:00:00 AM CARIDAD [place]) Documentation of current 06/01/2018 MED GEN ([facility] medications (procedure) 12:00:00 AM CARIDAD [place]) Documentation of current 06/01/2018 MED GEN ([facility] medications (procedure) 12:00:00 AM CARIDAD [place]av[place]) Documentation of current 06/01/2018 MED GEN ([facility] medications (procedure) 12:00:00 AM CARIDAD [place]) Documentation of current 06/01/2018 MED GEN ([facility] medications (procedure) 12:00:00 AM CARIDAD [place]) Documentation of current 06/01/2018 MED GEN ([facility] medications (procedure) 12:00:00 AM CARIDAD [place]) Documentation of current 06/01/2018 MED GEN ([facility] medications (procedure) 12:00:00 AM CARIDAD [place]) Documentation of current 06/01/2018 MED GEN ([facility] medications (procedure) 12:00:00 AM CARIDAD [place]av[place]) OFFICE OUTPATIENT VISIT 06/01/2018 MEDG EN ([facility] 15 MINUTES 12:00:00 AM CARIDAD Butler) Documentation of current 06/01/2018 MED GEN ([facility] medications (procedure) 12:00:00 AM CARIDAD [place]av[place]) Documentation of current 06/01/2018 MED GEN ([facility] medications (procedure) 12:00:00 AM CARIDAD [place]) Documentation of current 06/01/2018 MED GEN ([facility] medications (procedure) 12:00:00 AM CARIDAD [place]av[place]) Documentation of current 06/01/2018 MED GEN ([facility] medications (procedure) 12:00:00 AM CARIDAD [place]) Documentation of current 06/01/2018 MED GEN ([facility] medications (procedure) 12:00:00 AM CARIDAD [place]av[place]) Documentation of current 06/01/2018 MED GEN ([facility] medications (procedure) 12:00:00 AM CARIDAD [place]) Documentation of current 06/01/2018 MED GEN ([facility] medications (procedure) 12:00:00 AM CARIDAD [place]) Documentation of current 06/01/2018 MED GEN ([facility] medications (procedure) 12:00:00 AM CARIDAD [place]av[place]) Documentation of current 06/01/2018 MED GEN ([facility] medications (procedure) 12:00:00 AM CARIDAD [place]av[place]) Documentation of current 06/01/2018 MED GEN ([facility] medications (procedure) 12:00:00 AM CARIDAD [place]) Documentation of current 06/01/2018 MED GEN ([facility] medications (procedure) 12:00:00 AM CARIDAD [place]) Documentation of current 06/01/2018 MED GEN ([facility] medications (procedure) 12:00:00 AM CARIDAD [place]) Documentation of current 06/01/2018 MED GEN ([facility] medications (procedure) 12:00:00 AM CARIDAD [place]) Documentation of current 06/01/2018 MED GEN ([facility] medications (procedure) 12:00:00 AM CARIDAD [place]av[place]) OFFICE OUTPATIENT VISIT 06/01/2018 MEDG EN ([facility] 15 MINUTES 12:00:00 AM CARIDAD Butler) Documentation of current 06/01/2018 MED GEN ([facility] medications (procedure) 12:00:00 AM CARIDAD Chav[place]) Documentation of current 06/01/2018 MED GEN ([facility] medications (procedure) 12:00:00 AM CARIDAD [place]av[place]) Documentation of current 06/01/2018 MED GEN ([facility] medications (procedure) 12:00:00 AM CARIDAD [place]av[place]) Documentation of current 06/01/2018 MED GEN ([facility] medications (procedure) 12:00:00 AM CARIDAD [place]av[place]) Documentation of current 06/01/2018 MED GEN ([facility] medications (procedure) 12:00:00 AM CARIDAD [place]av[place]) Documentation of current 06/01/2018 MED GEN ([facility] medications (procedure) 12:00:00 AM CARIDAD [place]av[place]) Documentation of current 06/01/2018 MED GEN ([facility] medications (procedure) 12:00:00 AM CARIDAD [place]av[place]) Documentation of current 06/01/2018 MED GEN ([facility] (procedure) 12:00:00 AM CARIDAD [place]) Documentation of current 06/01/2018 MED GEN ([facility] (procedure) 12:00:00 AM CARIDAD Chavarria) Documentation of current 06/01/2018 MED GEN ([facility] (procedure) 12:00:00 AM CARIDAD Chavarria) Documentation of current 06/01/2018 MED GEN ([facility] (procedure) 12:00:00 AM CARIDAD Chavarria) Documentation of current 06/01/2018 MED GEN ([facility] (procedure) 12:00:00 AM CARIDAD Chavarria) Documentation of current 06/01/2018 MED GEN ([facility] (procedure) 12:00:00 AM CARIDAD Chavarria) Documentation of current 06/01/2018 MED GEN ([facility] (procedure) 12:00:00 AM CARIDAD Chavarria) OFFICE OUTPATIENT VISIT 06/01/2018 MEDG EN ([facility] 15 MINUTES 12:00:00 AM [facility] Wright, PC) Documentation of current 06/01/2018 MED GEN ([facility] (procedure) 12:00:00 AM RJ estrada, CARIDAD) Documentation of current 06/01/2018 MED GEN ([facility] (procedure) 12:00:00 AM [facility] estrada, PC) Documentation of current 06/01/2018 MED GEN ([facility] (procedure) 12:00:00 AM RJ estrada, PC) Documentation of current 06/01/2018 MED GEN ([facility] (procedure) 12:00:00 AM RJ estrada, PC) Documentation of current 06/01/2018 MED GEN ([facility] (procedure) 12:00:00 AM RJ estrada, PC) Documentation of current 06/01/2018 MED GEN ([facility] (procedure) 12:00:00 AM RJ estrada, PC) Documentation of current 06/01/2018 MED GEN ([facility] (procedure) 12:00:00 AM RJ estrada, PC) Documentation of current 06/01/2018 MED GEN ([facility] (procedure) 12:00:00 AM RJ estrada, PC) Documentation of current 06/01/2018 MED GEN ([facility] (procedure) 12:00:00 AM RJ estrada, PC) Documentation of current 06/01/2018 MED GEN ([facility] (procedure) 12:00:00 AM RJ estrada, PC) Documentation of current 06/01/2018 MED GEN ([facility] (procedure) 12:00:00 AM RJ estrada, PC) Documentation of current 06/01/2018 MED GEN ([facility] (procedure) 12:00:00 AM RJ estrada, PC) Documentation of current 06/01/2018 MED GEN ([facility] (procedure) 12:00:00 AM RJ estrada, PC) Documentation of current 06/01/2018 MED GEN ([facility] (procedure) 12:00:00 AM RJ estrada, PC) OFFICE OUTPATIENT VISIT 06/01/2018 MEDG EN ([facility] 15 MINUTES 12:00:00 AM [facility] Wright, PC) Documentation of current 06/01/2018 MED GEN ([facility] (procedure) 12:00:00 AM CARIDAD Chavarria) Documentation of current 06/01/2018 MED GEN ([facility] (procedure) 12:00:00 AM CARIDAD Chavarria) Documentation of current 06/01/2018 MED GEN ([facility] (procedure) 12:00:00 AM CARIDAD Chavarria) Documentation of current 06/01/2018 MED GEN ([facility] (procedure) 12:00:00 AM CARIDAD Chavarria) Documentation of current 06/01/2018 MED GEN ([facility] (procedure) 12:00:00 AM CARIDAD Chavarria) Documentation of current 06/01/2018 MED GEN ([facility] (procedure) 12:00:00 AM CARIDAD Chavarria) Documentation of current 06/01/2018 MED GEN ([facility] (procedure) 12:00:00 AM CARIDAD Chavarria) Documentation of current 06/01/2018 MED GEN ([facility] (procedure) 12:00:00 AM CARIDAD Chavarria) Documentation of current 06/01/2018 MED GEN ([facility] (procedure) 12:00:00 AM CARIDAD Chavarria) Documentation of current 06/01/2018 MED GEN ([facility] (procedure) 12:00:00 AM CARIDAD Chavarria) Documentation of current 06/01/2018 MED GEN ([facility] (procedure) 12:00:00 AM CARIDAD Chavarria) Documentation of current 06/01/2018 MED GEN ([facility] (procedure) 12:00:00 AM CARIDAD Chavarria) Documentation of current 06/01/2018 MED GEN ([facility] (procedure) 12:00:00 AM CARIDAD Chavarria) Documentation of current 06/01/2018 MED GEN ([facility] (procedure) 12:00:00 AM CARIDAD Chavarria) OFFICE OUTPATIENT VISIT 06/01/2018 MEDG EN ([facility] 15 MINUTES 12:00:00 AM [facility] Wright, [facility]) Documentation of current 06/01/2018 MED GEN ([facility] (procedure) 12:00:00 AM CARIDAD Chavarria) Documentation of current 06/01/2018 MED GEN ([facility] (procedure) 12:00:00 AM CARIDAD Chavarria) Documentation of current 06/01/2018 MED GEN ([facility] (procedure) 12:00:00 AM CARIDAD Chavarria) Documentation of current 06/01/2018 MED GEN ([facility] (procedure) 12:00:00 AM CARIDAD Chavarria) Documentation of current 06/01/2018 MED GEN ([facility] (procedure) 12:00:00 AM CARIDAD Chavarria) Documentation of current 06/01/2018 MED GEN ([facility] (procedure) 12:00:00 AM CARIDAD Chavarria) Documentation of current 06/01/2018 MED GEN ([facility] (procedure) 12:00:00 AM CARIDAD Chavarria) Documentation of current 06/01/2018 MED GEN ([facility] (procedure) 12:00:00 AM CARIDAD Chavarria) Documentation of current 06/01/2018 MED GEN ([facility] (procedure) 12:00:00 AM CARIDAD Chavarria) Documentation of current 06/01/2018 MED GEN ([facility] (procedure) 12:00:00 AM CARIDAD Chavarria) Documentation of current 06/01/2018 MED GEN ([facility] (procedure) 12:00:00 AM CARIDAD Chavarria) Documentation of current 06/01/2018 MED GEN ([facility] (procedure) 12:00:00 AM CARIDAD Chavarria) Documentation of current 06/01/2018 MED GEN ([facility] (procedure) 12:00:00 AM CARIDAD Chavarria) Documentation of current 06/01/2018 MED GEN ([facility] (procedure) 12:00:00 AM CARIDAD Chavarria) OFFICE OUTPATIENT VISIT 06/01/2018 MEDG EN ([facility] 15 MINUTES 12:00:00 AM CARIDAD Butler) Documentation of current 06/01/2018 MED GEN ([facility] (procedure) 12:00:00 AM CARIDAD Chavarria) Documentation of current 06/01/2018 MED GEN ([facility] (procedure) 12:00:00 AM CARIDAD Chavarria) Documentation of current 06/01/2018 MED GEN ([facility] (procedure) 12:00:00 AM CARIDAD Chavarria) Documentation of current 06/01/2018 MED GEN ([facility] (procedure) 12:00:00 AM CARIDAD Chavarria) Documentation of current 06/01/2018 MED GEN ([facility] (procedure) 12:00:00 AM CARIDAD Chavarria) Documentation of current 06/01/2018 MED GEN ([facility] (procedure) 12:00:00 AM [facility] estrada, PC) Documentation of current 06/01/2018 MED GEN ([facility] (procedure) 12:00:00 AM [facility] estrada PC) Documentation of current 06/01/2018 MED GEN ([facility] (procedure) 12:00:00 AM RJ estrada, PC) Documentation of current 06/01/2018 MED GEN ([facility] (procedure) 12:00:00 AM CARIDAD Chavarria) Documentation of current 06/01/2018 MED GEN ([facility] (procedure) 12:00:00 AM RJ estrada, PC) Documentation of current 06/01/2018 MED GEN ([facility] (procedure) 12:00:00 AM CARIDAD Chavarria) Documentation of current 06/01/2018 MED GEN ([facility] (procedure) 12:00:00 AM [facility] estrada PC) Documentation of current 06/01/2018 MED GEN ([facility] (procedure) 12:00:00 AM CARIDAD Chavarria) Documentation of current 06/01/2018 MED GEN ([facility] (procedure) 12:00:00 AM RJ estrada, PC) OFFICE OUTPATIENT VISIT 06/01/2018 MEDG EN ([facility] 15 MINUTES 12:00:00 AM [facility] Wright PC) Documentation of current 06/01/2018 MED GEN ([facility] (procedure) 12:00:00 AM CARIDAD Chavarria) Documentation of current 06/01/2018 MED GEN ([facility] (procedure) 12:00:00 AM CARIDAD Chavarria) Documentation of current 06/01/2018 MED GEN ([facility] (procedure) 12:00:00 AM RJ estrada, CARIDAD) Documentation of current 06/01/2018 MED GEN ([facility] (procedure) 12:00:00 AM RJ estrada, CARIDAD) Documentation of current 06/01/2018 MED GEN ([facility] (procedure) 12:00:00 AM RJ estrada, PC) Documentation of current 06/01/2018 MED GEN ([facility] (procedure) 12:00:00 AM RJ estrada, CARIDAD) Documentation of current 06/01/2018 MED GEN ([facility] (procedure) 12:00:00 AM RJ estrada, PC) Documentation of current 06/01/2018 MED GEN ([facility] (procedure) 12:00:00 AM RJ estrada, CARIDAD) Documentation of current 06/01/2018 MED GEN ([facility] (procedure) 12:00:00 AM RJ estrada, PC) Documentation of current 06/01/2018 MED GEN ([facility] (procedure) 12:00:00 AM RJ estrada, CARIDAD) Documentation of current 06/01/2018 MED GEN ([facility] (procedure) 12:00:00 AM RJ estrada, PC) Documentation of current 06/01/2018 MED GEN ([facility] (procedure) 12:00:00 AM RJ estrada, CARIDAD) Documentation of current 06/01/2018 MED GEN ([facility] (procedure) 12:00:00 AM RJ estrada, PC) Documentation of current 06/01/2018 MED GEN ([facility] (procedure) 12:00:00 AM RJ estrada, CARIDAD) Documentation of current 06/01/2018 MED GEN ([facility] (procedure) 12:00:00 AM RJ estrada, PC) Documentation of current 06/01/2018 MED GEN ([facility] (procedure) 12:00:00 AM RJ estrada, PC) Documentation of current 06/01/2018 MED GEN ([facility] (procedure) 12:00:00 AM RJ estrada, PC) Documentation of current 06/01/2018 MED GEN ([facility] (procedure) 12:00:00 AM CARIDAD Chavarria) Documentation of current 06/01/2018 MED GEN ([facility] (procedure) 12:00:00 AM CARIDAD Chavarria) Documentation of current 06/01/2018 MED GEN ([facility] (procedure) 12:00:00 AM CARIDAD Chavarria) Documentation of current 06/01/2018 MED GEN ([facility] (procedure) 12:00:00 AM CARIDAD Chavarria) Documentation of current 06/01/2018 MED GEN ([facility] (procedure) 12:00:00 AM CARIDAD Chavarria) Documentation of current 06/01/2018 MED GEN ([facility] (procedure) 12:00:00 AM CARIDAD Chavarria) Documentation of current 06/01/2018 MED GEN ([facility] (procedure) 12:00:00 AM CARIDAD Chavarria) Documentation of current 06/01/2018 MED GEN ([facility] (procedure) 12:00:00 AM CARIDAD Chavarria) Documentation of current 06/01/2018 MED GEN ([facility] (procedure) 12:00:00 AM CARIDAD Chavarria) Documentation of current 06/01/2018 MED GEN ([facility] (procedure) 12:00:00 AM CARIDAD Chavarria) Documentation of current 06/01/2018 MED GEN ([facility] (procedure) 12:00:00 AM CARIDAD Chavarria) OFFICE OUTPATIENT VISIT 06/01/2018 MEDG EN ([facility] 15 MINUTES 12:00:00 AM CARIDAD Butler) Documentation of current 06/01/2018 MED GEN ([facility] (procedure) 12:00:00 AM CARIDAD Chavarria) Documentation of current 06/01/2018 MED GEN ([facility] (procedure) 12:00:00 AM CARIDAD Chavarria) Documentation of current 06/01/2018 MED GEN ([facility] (procedure) 12:00:00 AM CARIDAD Chavarria) Documentation of current 06/01/2018 MED GEN ([facility] (procedure) 12:00:00 AM CARIDAD Chavarria) Documentation of current 06/01/2018 MED GEN ([facility] (procedure) 12:00:00 AM CARIDAD Chavarria) Documentation of current 06/01/2018 MED GEN ([facility] (procedure) 12:00:00 AM CARIDAD Chavarria) Documentation of current 06/01/2018 MED GEN ([facility] (procedure) 12:00:00 AM CARIDAD Chavarria) Documentation of current 06/01/2018 MED GEN ([facility] (procedure) 12:00:00 AM CARIDAD Chavarria) Documentation of current 06/01/2018 MED GEN ([facility] (procedure) 12:00:00 AM CARIDAD Chavarria) Documentation of current 06/01/2018 MED GEN ([facility] (procedure) 12:00:00 AM CARIDAD Chavarria) Documentation of current 06/01/2018 MED GEN ([facility] (procedure) 12:00:00 AM CARIDAD Chavarria) Documentation of current 06/01/2018 MED GEN ([facility] (procedure) 12:00:00 AM CARIDAD Chavarria) Documentation of current 06/01/2018 MED GEN ([facility] (procedure) 12:00:00 AM CARIDAD Chavarria) Documentation of current 06/01/2018 MED GEN ([facility] (procedure) 12:00:00 AM CARIDAD Chavarria) OFFICE OUTPATIENT VISIT 06/01/2018 MEDG EN ([facility] 15 MINUTES 12:00:00 AM CARIDAD Butler) Documentation of current 06/01/2018 MED GEN ([facility] (procedure) 12:00:00 AM CARIDAD Chavarria) Documentation of current 06/01/2018 MED GEN ([facility] (procedure) 12:00:00 AM CARIDAD Chavarria) Documentation of current 06/01/2018 MED GEN ([facility] (procedure) 12:00:00 AM CARIDAD Chavarria) Documentation of current 06/01/2018 MED GEN ([facility] (procedure) 12:00:00 AM CARIDAD Chavarria) Documentation of current 06/01/2018 MED GEN ([facility] (procedure) 12:00:00 AM CARIDAD Chavarria) Documentation of current 06/01/2018 MED GEN ([facility] (procedure) 12:00:00 AM CARIDAD Chavarria) Documentation of current 06/01/2018 MED GEN ([facility] (procedure) 12:00:00 AM CARIDAD Chavarria) Documentation of current 06/01/2018 MED GEN ([facility] (procedure) 12:00:00 AM RJ estrada, CARIDAD) Documentation of current 06/01/2018 MED GEN ([facility] (procedure) 12:00:00 AM [facility] estrada, PC) Documentation of current 06/01/2018 MED GEN ([facility] (procedure) 12:00:00 AM RJ estrada, PC) Documentation of current 06/01/2018 MED GEN ([facility] (procedure) 12:00:00 AM RJ estrada, PC) Documentation of current 06/01/2018 MED GEN ([facility] (procedure) 12:00:00 AM RJ estrada, PC) Documentation of current 06/01/2018 MED GEN ([facility] (procedure) 12:00:00 AM RJ estrada, CARIDAD) Documentation of current 06/01/2018 MED GEN ([facility] (procedure) 12:00:00 AM RJ estrada, PC) Documentation of current 06/01/2018 MED GEN ([facility] (procedure) 12:00:00 AM RJ estrada, PC) Documentation of current 06/01/2018 MED GEN ([facility] (procedure) 12:00:00 AM [facility] estrada PC) Documentation of current 06/01/2018 MED GEN ([facility] (procedure) 12:00:00 AM CARIDAD Chavarria) OFFICE OUTPATIENT VISIT 06/01/2018 MEDG EN ([facility] 15 MINUTES 12:00:00 AM [facility]) Documentation of current 06/01/2018 MED GEN ([facility] (procedure) 12:00:00 AM CARIDAD Chavarria) Documentation of current 06/01/2018 MED GEN ([facility] (procedure) 12:00:00 AM RJ estrada, PC) Documentation of current 06/01/2018 MED GEN ([facility] (procedure) 12:00:00 AM RJ estrada, PC) Documentation of current 06/01/2018 MED GEN ([facility] (procedure) 12:00:00 AM CARIDAD Chavarria) Documentation of current 06/01/2018 MED GEN ([facility] (procedure) 12:00:00 AM CARIDAD Chavarria) Documentation of current 06/01/2018 MED GEN ([facility] (procedure) 12:00:00 AM CARIDAD Chavarria) Documentation of current 06/01/2018 MED GEN ([facility] (procedure) 12:00:00 AM CARIDAD Chavarria) Documentation of current 06/01/2018 MED GEN ([facility] (procedure) 12:00:00 AM CARIDAD Chavarria) Documentation of current 06/01/2018 MED GEN ([facility] (procedure) 12:00:00 AM CARIDAD Chavarria) Documentation of current 06/01/2018 MED GEN ([facility] (procedure) 12:00:00 AM CARIDAD Chavarria) Documentation of current 06/01/2018 MED GEN ([facility] (procedure) 12:00:00 AM CARIDAD Chavarria) OFFICE OUTPATIENT VISIT 06/01/2018 MEDG EN ([facility] 15 MINUTES 12:00:00 AM CARIDAD Butler) Documentation of current 02/02/2018 MED GEN ([facility] (procedure) 12:00:00 AM CARIDAD Bowser) Documentation of current 02/02/2018 MED GEN ([facility] (procedure) 12:00:00 AM CARIDAD Bowser) Documentation of current 02/02/2018 MED GEN ([facility] (procedure) 12:00:00 AM CARIDAD Bowser) Documentation of current 02/02/2018 MED GEN ([facility] (procedure) 12:00:00 AM CARIDAD Bowser) Documentation of current 02/02/2018 MED GEN ([facility] (procedure) 12:00:00 AM CARIDAD Bowser) Documentation of current 02/02/2018 MED GEN ([facility] (procedure) 12:00:00 AM CARIDAD Bowser) Documentation of current 02/02/2018 MED GEN ([facility] (procedure) 12:00:00 AM [facility], PC) Documentation of current 02/02/2018 MED GEN ([facility] (procedure) 12:00:00 AM [facility], PC) Documentation of current 02/02/2018 MED GEN ([facility] (procedure) 12:00:00 AM [facility], PC) Documentation of current 02/02/2018 MED GEN ([facility] (procedure) 12:00:00 AM [facility] edical, PC) Documentation of current 02/02/2018 MED GEN ([facility] (procedure) 12:00:00 AM [facility]T edical, PC) Documentation of current 02/02/2018 MED GEN ([facility] (procedure) 12:00:00 AM [facility], PC) Documentation of current 02/02/2018 MED GEN ([facility] (procedure) 12:00:00 AM [facility] edical, PC) Documentation of current 02/02/2018 MED GEN ([facility] (procedure) 12:00:00 AM [facility], PC) Documentation of current 02/02/2018 MED GEN ([facility] (procedure) 12:00:00 AM [facility], PC) Documentation of current 02/02/2018 MED GEN ([facility] (procedure) 12:00:00 AM [facility] edical, PC) Documentation of current 02/02/2018 MED GEN ([facility] (procedure) 12:00:00 AM [facility]ical, PC) Documentation of current 02/02/2018 MED GEN ([facility] (procedure) 12:00:00 AM [facility]ical, PC) Documentation of current 02/02/2018 MED GEN ([facility] (procedure) 12:00:00 AM [facility] edical, PC) Documentation of current 02/02/2018 MED GEN ([facility] (procedure) 12:00:00 AM [facility], PC) Documentation of current 02/02/2018 MED GEN ([facility] (procedure) 12:00:00 AM [facility] edical, PC) OFFICE OUTPATIENT VISIT 02/02/2018 MEDG EN ([facility] 15 MINUTES 12:00:00 AM EDT Medical, ) Documentation of current 02/02/2018 MED GEN ([facility] (procedure) 12:00:00 AM EDT demarcoical, PC) Documentation of current 02/02/2018 MED GEN ([facility] (procedure) 12:00:00 AM [facility] ed[facility], PC) Documentation of current 02/02/2018 MED GEN ([facility] (procedure) 12:00:00 AM [facility]T edical, PC) Documentation of current 02/02/2018 MED GEN ([facility] (procedure) 12:00:00 AM [facility] edical, PC) Documentation of current 02/02/2018 MED GEN ([facility] (procedure) 12:00:00 AM [facility] edical, PC) Documentation of current 02/02/2018 MED GEN ([facility] (procedure) 12:00:00 AM EDT edical, PC) Documentation of current 02/02/2018 MED GEN ([facility] (procedure) 12:00:00 AM [facility] edical, PC) Documentation of current 02/02/2018 MED GEN ([facility] (procedure) 12:00:00 AM [facility]T edical, PC) Documentation of current 02/02/2018 MED GEN ([facility] (procedure) 12:00:00 AM [facility] edical, PC) Documentation of current 02/02/2018 MED GEN ([facility] (procedure) 12:00:00 AM EDT edical, PC) Documentation of current 02/02/2018 MED GEN ([facility] (procedure) 12:00:00 AM EDT demarcoical, PC) Documentation of current 02/02/2018 MED GEN ([facility] (procedure) 12:00:00 AM EDT edical, PC) Documentation of current 02/02/2018 MED GEN ([facility] (procedure) 12:00:00 AM EDT edical, PC) Documentation of current 02/02/2018 MED GEN ([facility] (procedure) 12:00:00 AM [facility]T edical, PC) Documentation of current 02/02/2018 MED GEN ([facility] (procedure) 12:00:00 AM EDT edical, PC) Documentation of current 02/02/2018 MED GEN ([facility] (procedure) 12:00:00 AM EDT natalie, PC) Documentation of current 02/02/2018 MED GEN ([facility] (procedure) 12:00:00 AM EDT edical, PC) Documentation of current 02/02/2018 MED GEN ([facility] (procedure) 12:00:00 AM EDT natalie, PC) Documentation of current 02/02/2018 MED GEN ([facility] (procedure) 12:00:00 AM EDT natalie, PC) Documentation of current 02/02/2018 MED GEN ([facility] (procedure) 12:00:00 AM EDT natalie, PC) Documentation of current 02/02/2018 MED GEN ([facility] (procedure) 12:00:00 AM EDT natalie, PC) OFFICE OUTPATIENT VISIT 02/02/2018 MEDG EN ([facility] 15 MINUTES 12:00:00 AM [facility], [facility]) Documentation of current 02/02/2018 MED GEN ([facility] medications (procedure) 12:00:00 AM EDT natalie, PC) Documentation of current 02/02/2018 MED GEN ([facility] (procedure) 12:00:00 AM EDT natalie, PC) Documentation of current 02/02/2018 MED GEN ([facility] (procedure) 12:00:00 AM EDT demarcoical, PC) Documentation of current 02/02/2018 MED GEN ([facility] (procedure) 12:00:00 AM EDT natalie, PC) Documentation of current 02/02/2018 MED GEN ([facility] (procedure) 12:00:00 AM EDT demarcoical, PC) Documentation of current 02/02/2018 MED GEN ([facility] (procedure) 12:00:00 AM EDT edical, PC) Documentation of current 02/02/2018 MED GEN ([facility] (procedure) 12:00:00 AM EDT edical, PC) Documentation of current 02/02/2018 MED GEN ([facility] (procedure) 12:00:00 AM EDT demarcoical, PC) Documentation of current 02/02/2018 MED GEN ([facility] (procedure) 12:00:00 AM EDT edical, PC) Documentation of current 02/02/2018 MED GEN ([facility] (procedure) 12:00:00 AM [facility]T edical, PC) Documentation of current 02/02/2018 MED GEN ([facility] (procedure) 12:00:00 AM EDT edical, PC) Documentation of current 02/02/2018 MED GEN ([facility] (procedure) 12:00:00 AM EDT edical, PC) Documentation of current 02/02/2018 MED GEN ([facility] (procedure) 12:00:00 AM EDT edical, PC) Documentation of current 02/02/2018 MED GEN ([facility] (procedure) 12:00:00 AM EDT edical, PC) Documentation of current 02/02/2018 MED GEN ([facility] (procedure) 12:00:00 AM EDT edical, PC) Documentation of current 02/02/2018 MED GEN ([facility] (procedure) 12:00:00 AM EDT edical, PC) Documentation of current 02/02/2018 MED GEN ([facility] (procedure) 12:00:00 AM EDT edical, PC) Documentation of current 02/02/2018 MED GEN ([facility] (procedure) 12:00:00 AM EDT edical, PC) Documentation of current 02/02/2018 MED GEN ([facility] (procedure) 12:00:00 AM EDT edical, PC) Documentation of current 02/02/2018 MED GEN ([facility] (procedure) 12:00:00 AM EDT edical, PC) Documentation of current 02/02/2018 MED GEN ([facility] (procedure) 12:00:00 AM EDT edical, PC) OFFICE OUTPATIENT VISIT 02/02/2018 MEDG EN ([facility] 15 MINUTES 12:00:00 AM [facility], [facility]) Documentation of current 02/02/2018 MED GEN ([facility] medications (procedure) 12:00:00 AM EDT edical, PC) Documentation of current 02/02/2018 MED GEN ([facility] medications (procedure) 12:00:00 AM EDT edical, PC) Documentation of current 02/02/2018 MED GEN ([facility] medications (procedure) 12:00:00 AM EDT edical, PC) Documentation of current 02/02/2018 MED GEN ([facility] medications (procedure) 12:00:00 AM EDT edical, PC) Documentation of current 02/02/2018 MED GEN ([facility] medications (procedure) 12:00:00 AM EDT edical, PC) Documentation of current 02/02/2018 MED GEN ([facility] (procedure) 12:00:00 AM EDT edical, PC) Documentation of current 02/02/2018 MED GEN ([facility] (procedure) 12:00:00 AM EDT edical, PC) Documentation of current 02/02/2018 MED GEN ([facility] (procedure) 12:00:00 AM EDT edical, PC) Documentation of current 02/02/2018 MED GEN ([facility] (procedure) 12:00:00 AM EDT edical, PC) Documentation of current 02/02/2018 MED GEN ([facility] (procedure) 12:00:00 AM EDT edical, PC) Documentation of current 02/02/2018 MED GEN ([facility] (procedure) 12:00:00 AM EDT edical, PC) Documentation of current 02/02/2018 MED GEN ([facility] (procedure) 12:00:00 AM EDT edical, PC) Documentation of current 02/02/2018 MED GEN ([facility] (procedure) 12:00:00 AM EDT edical, PC) Documentation of current 02/02/2018 MED GEN ([facility] (procedure) 12:00:00 AM EDT edical, PC) Documentation of current 02/02/2018 MED GEN ([facility] (procedure) 12:00:00 AM EDT edical, PC) Documentation of current 02/02/2018 MED GEN ([facility] (procedure) 12:00:00 AM [facility], PC) Documentation of current 02/02/2018 MED GEN ([facility] medications (procedure) 12:00:00 AM [facility], PC) Documentation of current 02/02/2018 MED GEN ([facility] medications (procedure) 12:00:00 AM [facility], PC) Documentation of current 02/02/2018 MED GEN ([facility] medications (procedure) 12:00:00 AM [facility], PC) Documentation of current 02/02/2018 MED GEN ([facility] medications (procedure) 12:00:00 AM [facility], PC) Documentation of current 02/02/2018 MED GEN ([facility] medications (procedure) 12:00:00 AM [facility], PC) OFFICE OUTPATIENT VISIT 02/02/2018 MEDG EN ([facility] 15 MINUTES 12:00:00 AM [facility], ) Documentation of current 02/02/2018 MED GEN ([facility] medications (procedure) 12:00:00 AM [facility], PC) Documentation of current 02/02/2018 MED GEN ([facility] medications (procedure) 12:00:00 AM [facility], PC) Documentation of current 02/02/2018 MED GEN ([facility] medications (procedure) 12:00:00 AM [facility], PC) Documentation of current 02/02/2018 MED GEN ([facility] medications (procedure) 12:00:00 AM [facility], PC) Documentation of current 02/02/2018 MED GEN ([facility] medications (procedure) 12:00:00 AM [facility], PC) Documentation of current 02/02/2018 MED GEN ([facility] medications (procedure) 12:00:00 AM [facility], PC) Documentation of current 02/02/2018 MED GEN ([facility] medications (procedure) 12:00:00 AM [facility], PC) Documentation of current 02/02/2018 MED GEN ([facility] medications (procedure) 12:00:00 AM [facility], PC) Documentation of current 02/02/2018 MED GEN ([facility] medications (procedure) 12:00:00 AM [facility], PC) Documentation of current 02/02/2018 MED GEN ([facility] medications (procedure) 12:00:00 AM [facility], PC) Documentation of current 02/02/2018 MED GEN ([facility] medications (procedure) 12:00:00 AM [facility]T [facility], PC) Documentation of current 02/02/2018 MED GEN ([facility] medications (procedure) 12:00:00 AM [facility], PC) Documentation of current 02/02/2018 MED GEN ([facility] medications (procedure) 12:00:00 AM [facility], PC) Documentation of current 02/02/2018 MED GEN ([facility] medications (procedure) 12:00:00 AM [facility], PC) Documentation of current 02/02/2018 MED GEN ([facility] medications (procedure) 12:00:00 AM [facility], PC) Documentation of current 02/02/2018 MED GEN ([facility] medications (procedure) 12:00:00 AM [facility], PC) Documentation of current 02/02/2018 MED GEN ([facility] medications (procedure) 12:00:00 AM [facility], PC) Documentation of current 02/02/2018 MED GEN ([facility] medications (procedure) 12:00:00 AM [facility]T [facility], PC) Documentation of current 02/02/2018 MED GEN ([facility] medications (procedure) 12:00:00 AM [facility], PC) Documentation of current 02/02/2018 MED GEN ([facility] medications (procedure) 12:00:00 AM [facility], PC) Documentation of current 02/02/2018 MED GEN ([facility] medications (procedure) 12:00:00 AM [facility], PC) OFFICE OUTPATIENT VISIT 02/02/2018 MEDG EN ([facility] 15 MINUTES 12:00:00 AM [facility], PC) Documentation of current 02/02/2018 MED GEN ([facility] medications (procedure) 12:00:00 AM EDT [facility]al[facility], PC) Documentation of current 02/02/2018 MED GEN ([facility] medications (procedure) 12:00:00 AM [facility]T [facility], PC) Documentation of current 02/02/2018 MED GEN ([facility] medications (procedure) 12:00:00 AM [facility], PC) Documentation of current 02/02/2018 MED GEN ([facility] medications (procedure) 12:00:00 AM [facility], PC) Documentation of current 02/02/2018 MED GEN ([facility] medications (procedure) 12:00:00 AM EDT M edical, PC) Documentation of current 02/02/2018 MED GEN ([facility] medications (procedure) 12:00:00 AM [facility] edical, PC) Documentation of current 02/02/2018 MED GEN ([facility] medications (procedure) 12:00:00 AM [facility] edical, PC) Documentation of current 02/02/2018 MED GEN ([facility] medications (procedure) 12:00:00 AM [facility] edical, PC) Documentation of current 02/02/2018 MED GEN ([facility] medications (procedure) 12:00:00 AM [facility], PC) Documentation of current 02/02/2018 MED GEN ([facility] medications (procedure) 12:00:00 AM [facility], PC) Documentation of current 02/02/2018 MED GEN ([facility] medications (procedure) 12:00:00 AM [facility]T [facility], PC) Documentation of current 02/02/2018 MED GEN ([facility] medications (procedure) 12:00:00 AM [facility], PC) Documentation of current 02/02/2018 MED GEN ([facility] medications (procedure) 12:00:00 AM [facility], PC) Documentation of current 02/02/2018 MED GEN ([facility] medications (procedure) 12:00:00 AM [facility]T [facility], PC) Documentation of current 02/02/2018 MED GEN ([facility] medications (procedure) 12:00:00 AM [facility]T [facility], PC) Documentation of current 02/02/2018 MED GEN ([facility] medications (procedure) 12:00:00 AM [facility] edical, PC) Documentation of current 02/02/2018 MED GEN ([facility] medications (procedure) 12:00:00 AM EDT M [facility]co[facility], PC) Documentation of current 02/02/2018 MED GEN ([facility] medications (procedure) 12:00:00 AM [facility]T [facility], PC) Documentation of current 02/02/2018 MED GEN ([facility] medications (procedure) 12:00:00 AM [facility], PC) Documentation of current 02/02/2018 MED GEN ([facility] medications (procedure) 12:00:00 AM [facility], PC) OFFICE OUTPATIENT VISIT 02/02/2018 MEDG EN [facility] current 02/02/2018 MED GEN ([facility] medications (procedure) 12:00:00 AM [facility] edical, PC) Documentation of current 02/02/2018 MED GEN ([facility] medications (procedure) 12:00:00 AM [facility] edical, PC) Documentation of current 02/02/2018 MED GEN ([facility] medications (procedure) 12:00:00 AM [facility] edical, PC) Documentation of current 02/02/2018 MED GEN ([facility] medications (procedure) 12:00:00 AM [facility] edical, PC) Documentation of current 02/02/2018 MED GEN ([facility] medications (procedure) 12:00:00 AM [facility]ical, PC) Documentation of current 02/02/2018 MED GEN ([facility] medications (procedure) 12:00:00 AM [facility] edical, PC) Documentation of current 02/02/2018 MED GEN ([facility] medications (procedure) 12:00:00 AM [facility] edical, PC) Documentation of current 02/02/2018 MED GEN ([facility] medications (procedure) 12:00:00 AM [facility], PC) Documentation of current 02/02/2018 MED GEN ([facility] medications (procedure) 12:00:00 AM [facility], PC) Documentation of current 02/02/2018 MED GEN ([facility] medications (procedure) 12:00:00 AM [facility], PC) Documentation of current 02/02/2018 MED GEN ([facility] medications (procedure) 12:00:00 AM [facility] edical, PC) Documentation of current 02/02/2018 MED GEN ([facility] medications (procedure) 12:00:00 AM [facility] edical, PC) Documentation of current 02/02/2018 MED GEN ([facility] medications (procedure) 12:00:00 AM [facility] edical, PC) Documentation of current 02/02/2018 MED GEN ([facility] medications (procedure) 12:00:00 AM [facility] edical, PC) Documentation of current 02/02/2018 MED GEN ([facility] medications (procedure) 12:00:00 AM [facility] edical, PC) Documentation of current 02/02/2018 MED GEN ([facility] medications (procedure) 12:00:00 AM [facility] edical, PC) Documentation of current 02/02/2018 MED GEN ([facility] medications (procedure) 12:00:00 AM [facility] edical, PC) Documentation of current 02/02/2018 MED GEN ([facility] medications (procedure) 12:00:00 AM [facility] edical, PC) Documentation of current 02/02/2018 MED GEN ([facility] medications (procedure) 12:00:00 AM [facility] ed[facility], PC) Documentation of current 02/02/2018 MED GEN ([facility] medications (procedure) 12:00:00 AM [facility], PC) Documentation of current 02/02/2018 MED GEN ([facility] medications (procedure) 12:00:00 AM [facility], PC) OFFICE OUTPATIENT VISIT 02/02/2018 MEDG EN ([facility] 15 MINUTES 12:00:00 AM [facility], ) Documentation of current 02/02/2018 MED GEN ([facility] medications (procedure) 12:00:00 AM [facility], PC) Documentation of current 02/02/2018 MED GEN ([facility] medications (procedure) 12:00:00 AM [facility], PC) Documentation of current 02/02/2018 MED GEN ([facility] medications (procedure) 12:00:00 AM [facility], PC) Documentation of current 02/02/2018 MED GEN ([facility] medications (procedure) 12:00:00 AM [facility], PC) Documentation of current 02/02/2018 MED GEN ([facility] medications (procedure) 12:00:00 AM [facility], PC) Documentation of current 02/02/2018 MED GEN ([facility] medications (procedure) 12:00:00 AM [facility], PC) Documentation of current 02/02/2018 MED GEN ([facility] medications (procedure) 12:00:00 AM [facility], PC) Documentation of current 02/02/2018 MED GEN ([facility] medications (procedure) 12:00:00 AM [facility], PC) Documentation of current 02/02/2018 MED GEN ([facility] medications (procedure) 12:00:00 AM [facility], PC) Documentation of current 02/02/2018 MED GEN ([facility] medications (procedure) 12:00:00 AM [facility], PC) Documentation of current 02/02/2018 MED GEN ([facility] medications (procedure) 12:00:00 AM [facility]T [facility], PC) Documentation of current 02/02/2018 MED GEN ([facility] medications (procedure) 12:00:00 AM [facility]T [facility], PC) Documentation of current 02/02/2018 MED GEN ([facility] medications (procedure) 12:00:00 AM [facility]T [facility], PC) Documentation of current 02/02/2018 MED GEN ([facility] medications (procedure) 12:00:00 AM [facility], PC) Documentation of current 02/02/2018 MED GEN ([facility] medications (procedure) 12:00:00 AM [facility]T [facility], PC) Documentation of current 02/02/2018 MED GEN ([facility] medications (procedure) 12:00:00 AM [facility], PC) Documentation of current 02/02/2018 MED GEN ([facility] medications (procedure) 12:00:00 AM [facility]T [facility], PC) Documentation of current 02/02/2018 MED GEN ([facility] medications (procedure) 12:00:00 AM [facility], PC) Documentation of current 02/02/2018 MED GEN ([facility] medications (procedure) 12:00:00 AM [facility]T [facility], PC) Documentation of current 02/02/2018 MED GEN ([facility] medications (procedure) 12:00:00 AM [facility], PC) Documentation of current 02/02/2018 MED GEN ([facility] medications (procedure) 12:00:00 AM [facility], PC) Documentation of current 02/02/2018 MED GEN ([facility] medications (procedure) 12:00:00 AM [facility]ical, PC) Documentation of current 02/02/2018 MED GEN ([facility] medications (procedure) 12:00:00 AM [facility]T edical, PC) Documentation of current 02/02/2018 MED GEN ([facility] medications (procedure) 12:00:00 AM [facility] edical, PC) Documentation of current 02/02/2018 MED GEN ([facility] medications (procedure) 12:00:00 AM [facility], PC) Documentation of current 02/02/2018 MED GEN ([facility] medications (procedure) 12:00:00 AM [facility] edical, PC) Documentation of current 02/02/2018 MED GEN ([facility] medications (procedure) 12:00:00 AM [facility], PC) Documentation of current 02/02/2018 MED GEN ([facility] medications (procedure) 12:00:00 AM [facility]T [facility], PC) OFFICE OUTPATIENT VISIT 02/02/2018 MEDG EN ([facility] 15 MINUTES 12:00:00 AM [facility], PC) Documentation of current 02/02/2018 MED GEN ([facility] medications (procedure) 12:00:00 AM [facility]T [facility], PC) Documentation of current 02/02/2018 MED GEN ([facility] medications (procedure) 12:00:00 AM [facility], PC) Documentation of current 02/02/2018 MED GEN ([facility] medications (procedure) 12:00:00 AM [facility]T [facility], PC) Documentation of current 02/02/2018 MED GEN ([facility] medications (procedure) 12:00:00 AM [facility], PC) Documentation of current 02/02/2018 MED GEN ([facility] medications (procedure) 12:00:00 AM [facility] edical, PC) Documentation of current 02/02/2018 MED GEN ([facility] medications (procedure) 12:00:00 AM [facility] ed[facility], PC) Documentation of current 02/02/2018 MED GEN ([facility] medications (procedure) 12:00:00 AM [facility], PC) Documentation of current 02/02/2018 MED GEN ([facility] medications (procedure) 12:00:00 AM [facility]T [facility], PC) Documentation of current 02/02/2018 MED GEN ([facility] medications (procedure) 12:00:00 AM [facility], PC) Documentation of current 02/02/2018 MED GEN ([facility] medications (procedure) 12:00:00 AM [facility], PC) Documentation of current 02/02/2018 MED GEN ([facility] medications (procedure) 12:00:00 AM [facility], PC) Documentation of current 02/02/2018 MED GEN ([facility] medications (procedure) 12:00:00 AM [facility]T [facility], PC) Documentation of current 02/02/2018 MED GEN ([facility] medications (procedure) 12:00:00 AM [facility], PC) Documentation of current 02/02/2018 MED GEN ([facility] medications (procedure) 12:00:00 AM [facility], PC) Documentation of current 02/02/2018 MED GEN ([facility] medications (procedure) 12:00:00 AM [facility], PC) Documentation of current 02/02/2018 MED GEN ([facility] medications (procedure) 12:00:00 AM [facility]T [facility], PC) Documentation of current 02/02/2018 MED GEN ([facility] medications (procedure) 12:00:00 AM [facility], PC) Documentation of current 02/02/2018 MED GEN ([facility] medications (procedure) 12:00:00 AM [facility]T [facility], PC) Documentation of current 02/02/2018 MED GEN ([facility] medications (procedure) 12:00:00 AM [facility]T [facility], PC) Documentation of current 02/02/2018 MED GEN ([facility] medications (procedure) 12:00:00 AM [facility]T [facility], PC) Documentation of current 02/02/2018 MED GEN ([facility] medications (procedure) 12:00:00 AM EDT M [facility]alie, PC) Documentation of current 02/02/2018 MED GEN ([facility] medications (procedure) 12:00:00 AM EDT [facility], PC) Documentation of current 02/02/2018 MED GEN ([facility] medications (procedure) 12:00:00 AM [facility] edical, PC) Documentation of current 02/02/2018 MED GEN ([facility] medications (procedure) 12:00:00 AM [facility] ed[facility], PC) Documentation of current 02/02/2018 MED GEN ([facility] medications (procedure) 12:00:00 AM [facility]ical, PC) Documentation of current 02/02/2018 MED GEN ([facility] medications (procedure) 12:00:00 AM [facility] edical, PC) Documentation of current 02/02/2018 MED GEN ([facility] medications (procedure) 12:00:00 AM [facility]T edical, PC) Documentation of current 02/02/2018 MED GEN ([facility] medications (procedure) 12:00:00 AM [facility]ical, PC) Documentation of current 02/02/2018 MED GEN ([facility] medications (procedure) 12:00:00 AM [facility]T edical, PC) Documentation of current 02/02/2018 MED GEN ([facility] medications (procedure) 12:00:00 AM [facility]ical, PC) Documentation of current 02/02/2018 MED GEN ([facility] medications (procedure) 12:00:00 AM [facility] edical, PC) Documentation of current 02/02/2018 MED GEN ([facility] medications (procedure) 12:00:00 AM [facility] edical, PC) Documentation of current 02/02/2018 MED GEN ([facility] medications (procedure) 12:00:00 AM [facility]T edical, PC) Documentation of current 02/02/2018 MED GEN ([facility] medications (procedure) 12:00:00 AM [facility] edical, PC) Documentation of current 02/02/2018 MED GEN ([facility] medications (procedure) 12:00:00 AM [facility]T edical, PC) OFFICE OUTPATIENT VISIT 02/02/2018 MEDG EN ([facility] 15 MINUTES 12:00:00 AM [facility], PC) Documentation of current 02/02/2018 MED GEN ([facility] medications (procedure) 12:00:00 AM [facility]T edical, PC) Documentation of current 02/02/2018 MED GEN ([facility] medications (procedure) 12:00:00 AM [facility]T [facility], PC) Documentation of current 02/02/2018 MED GEN ([facility] medications (procedure) 12:00:00 AM [facility]T edical, PC) Documentation of current 02/02/2018 MED GEN ([facility] medications (procedure) 12:00:00 AM [facility]T edical, PC) Documentation of current 02/02/2018 MED GEN ([facility] medications (procedure) 12:00:00 AM [facility]T edical, PC) Documentation of current 02/02/2018 MED GEN ([facility] medications (procedure) 12:00:00 AM EDT [facility], PC) Documentation of current 02/02/2018 MED GEN ([facility] medications (procedure) 12:00:00 AM [facility]T edical, PC) Documentation of current 02/02/2018 MED GEN ([facility] medications (procedure) 12:00:00 AM [facility]T edical, PC) Documentation of current 02/02/2018 MED GEN ([facility] medications (procedure) 12:00:00 AM [facility]T edical, PC) Documentation of current 02/02/2018 MED GEN ([facility] medications (procedure) 12:00:00 AM [facility]T edical, PC) Documentation of current 02/02/2018 MED GEN ([facility] medications (procedure) 12:00:00 AM EDT edical, PC) Documentation of current 02/02/2018 MED GEN ([facility] medications (procedure) 12:00:00 AM [facility]T edical, PC) Documentation of current 02/02/2018 MED GEN ([facility] medications (procedure) 12:00:00 AM [facility]T edical, PC) Documentation of current 02/02/2018 MED GEN ([facility] medications (procedure) 12:00:00 AM EDT edical, PC) Documentation of current 02/02/2018 MED GEN ([facility] medications (procedure) 12:00:00 AM EDT edical, PC) Documentation of current 02/02/2018 MED GEN ([facility] medications (procedure) 12:00:00 AM [facility]T edical, PC) Documentation of current 02/02/2018 MED GEN ([facility] medications (procedure) 12:00:00 AM [facility]T [facility], PC) Documentation of current 02/02/2018 MED GEN ([facility] medications (procedure) 12:00:00 AM [facility]T edical, PC) Documentation of current 02/02/2018 MED GEN ([facility] medications (procedure) 12:00:00 AM EDT edical, PC) Documentation of current 02/02/2018 MED GEN ([facility] medications (procedure) 12:00:00 AM EDT edical, PC) Documentation of current 02/02/2018 MED GEN ([facility] medications (procedure) 12:00:00 AM [facility]T edical, PC) Documentation of current 02/02/2018 MED GEN ([facility] medications (procedure) 12:00:00 AM [facility]T edical, PC) Documentation of current 02/02/2018 MED GEN ([facility] medications (procedure) 12:00:00 AM [facility]T edical, PC) Documentation of current 02/02/2018 MED GEN ([facility] medications (procedure) 12:00:00 AM [facility]T [facility], PC) Documentation of current 02/02/2018 MED GEN ([facility] medications (procedure) 12:00:00 AM EDT edical, PC) Documentation of current 02/02/2018 MED GEN ([facility] medications (procedure) 12:00:00 AM EDT edical, PC) Documentation of current 02/02/2018 MED GEN ([facility] medications (procedure) 12:00:00 AM EDT edical, PC) Documentation of current 02/02/2018 MED GEN ([facility] medications (procedure) 12:00:00 AM [facility]T edical, PC) Documentation of current 02/02/2018 MED GEN ([facility] medications (procedure) 12:00:00 AM [facility]T edical, PC) Documentation of current 02/02/2018 MED GEN ([facility] medications (procedure) 12:00:00 AM EDT edical, PC) Documentation of current 02/02/2018 MED GEN ([facility] medications (procedure) 12:00:00 AM [facility]T edical, PC) Documentation of current 02/02/2018 MED GEN ([facility] medications (procedure) 12:00:00 AM EDT edical, ) Documentation of current 02/02/2018 MED GEN ([facility] medications (procedure) 12:00:00 AM EDT edical, PC) OFFICE OUTPATIENT VISIT 02/02/2018 MEDG EN ([facility] 15 MINUTES 12:00:00 AM [facility] Medical, ) Documentation of current 02/02/2018 MED GEN ([facility] medications (procedure) 12:00:00 AM [facility], PC) Documentation of current 02/02/2018 MED GEN ([facility] medications (procedure) 12:00:00 AM [facility]T edical, PC) Documentation of current 02/02/2018 MED GEN ([facility] medications (procedure) 12:00:00 AM [facility]T edical, PC) Documentation of current 02/02/2018 MED GEN ([facility] medications (procedure) 12:00:00 AM [facility]T [facility], PC) Documentation of current 02/02/2018 MED GEN ([facility] medications (procedure) 12:00:00 AM [facility]T [facility], PC) Documentation of current 02/02/2018 MED GEN ([facility] medications (procedure) 12:00:00 AM [facility]T [facility], PC) Documentation of current 02/02/2018 MED GEN ([facility] medications (procedure) 12:00:00 AM EDT [facility], PC) Documentation of current 02/02/2018 MED GEN ([facility] medications (procedure) 12:00:00 AM EDT [facility], PC) Documentation of current 02/02/2018 MED GEN ([facility] medications (procedure) 12:00:00 AM [facility]T [facility], PC) OFFICE OUTPATIENT VISIT 02/02/2018 MEDG EN [facility] current 01/25/2018 MED GEN ([facility] medications (procedure) 12:00:00 AM [facility]T edical, PC) Documentation of current 01/25/2018 MED GEN ([facility] medications (procedure) 12:00:00 AM [facility]T edical, PC) Documentation of current 01/25/2018 MED GEN ([facility] medications (procedure) 12:00:00 AM EDT [facility], PC) Documentation of current 01/25/2018 MED GEN ([facility] medications (procedure) 12:00:00 AM [facility]T edical, PC) Documentation of current 01/25/2018 MED GEN ([facility] medications (procedure) 12:00:00 AM [facility]T edical, PC) Documentation of current 01/25/2018 MED GEN ([facility] medications (procedure) 12:00:00 AM [facility] edical, PC) Documentation of current 01/25/2018 MED GEN ([facility] medications (procedure) 12:00:00 AM [facility]T edical, PC) OFFICE OUTPATIENT VISIT 01/25/2018 MEDG EN ([facility] 10 MINUTES 12:00:00 AM [facility]T Medical, ) Documentation of current 01/25/2018 MED GEN ([facility] medications (procedure) 12:00:00 AM EDT edical, PC) Documentation of current 01/25/2018 MED GEN ([facility] medications (procedure) 12:00:00 AM EDT edical, PC) Documentation of current 01/25/2018 MED GEN ([facility] medications (procedure) 12:00:00 AM EDT edical, PC) Documentation of current 01/25/2018 MED GEN ([facility] medications (procedure) 12:00:00 AM EDT edical, PC) Documentation of current 01/25/2018 MED GEN ([facility] medications (procedure) 12:00:00 AM EDT edical, PC) Documentation of current 01/25/2018 MED GEN ([facility] medications (procedure) 12:00:00 AM EDT edical, PC) Documentation of current 01/25/2018 MED GEN ([facility] medications (procedure) 12:00:00 AM EDT edical, PC) OFFICE OUTPATIENT VISIT 01/25/2018 MEDG EN ([facility] 10 MINUTES 12:00:00 AM [facility] Medical, PC) Documentation of current 01/25/2018 MED GEN ([facility] medications (procedure) 12:00:00 AM EDT edical, PC) Documentation of current 01/25/2018 MED GEN ([facility] medications (procedure) 12:00:00 AM EDT edical, PC) Documentation of current 01/25/2018 MED GEN ([facility] medications (procedure) 12:00:00 AM EDT edical, ) Documentation of current 01/25/2018 MED GEN ([facility] medications (procedure) 12:00:00 AM EDT edical, PC) Documentation of current 01/25/2018 MED GEN ([facility] medications (procedure) 12:00:00 AM EDT edical, ) Documentation of current 01/25/2018 MED GEN ([facility] medications (procedure) 12:00:00 AM EDT edical, PC) Documentation of current 01/25/2018 MED GEN ([facility] medications (procedure) 12:00:00 AM EDT edical, ) OFFICE OUTPATIENT VISIT 01/25/2018 MEDG EN ([facility] 10 MINUTES 12:00:00 AM [facility], ) Documentation of current 01/25/2018 MED GEN ([facility] medications (procedure) 12:00:00 AM EDT edical, PC) Documentation of current 01/25/2018 MED GEN ([facility] medications (procedure) 12:00:00 AM EDT edical, ) Documentation of current 01/25/2018 MED GEN ([facility] medications (procedure) 12:00:00 AM EDT edical, PC) Documentation of current 01/25/2018 MED GEN ([facility] medications (procedure) 12:00:00 AM EDT edical, PC) Documentation of current 01/25/2018 MED GEN ([facility] medications (procedure) 12:00:00 AM EDT edical, PC) Documentation of current 01/25/2018 MED GEN ([facility] medications (procedure) 12:00:00 AM EDT edical, PC) Documentation of current 01/25/2018 MED GEN ([facility] medications (procedure) 12:00:00 AM EDT edical, PC) OFFICE OUTPATIENT VISIT 01/25/2018 MEDG EN ([facility] 10 MINUTES 12:00:00 AM [facility], ) Documentation of current 01/25/2018 MED GEN ([facility] medications (procedure) 12:00:00 AM EDT edical, PC) Documentation of current 01/25/2018 MED GEN ([facility] medications (procedure) 12:00:00 AM EDT edical, PC) Documentation of current 01/25/2018 MED GEN ([facility] medications (procedure) 12:00:00 AM EDT edical, PC) Documentation of current 01/25/2018 MED GEN ([facility] medications (procedure) 12:00:00 AM EDT edical, PC) Documentation of current 01/25/2018 MED GEN ([facility] medications (procedure) 12:00:00 AM EDT edical, PC) Documentation of current 01/25/2018 MED GEN ([facility] medications (procedure) 12:00:00 AM EDT edical, PC) Documentation of current 01/25/2018 MED GEN ([facility] medications (procedure) 12:00:00 AM EDT edical, PC) OFFICE OUTPATIENT VISIT 01/25/2018 MEDG EN ([facility] 10 MINUTES 12:00:00 AM ED Medical, ) Documentation of current 01/25/2018 MED GEN ([facility] medications (procedure) 12:00:00 AM EDT edical, PC) Documentation of current 01/25/2018 MED GEN ([facility] (procedure) 12:00:00 AM EDT edical, PC) OFFICE OUTPATIENT VISIT 01/25/2018 MEDG EN ([facility] 10 MINUTES 12:00:00 AM EDT Medical, PC) Documentation of current 01/25/2018 MED GEN ([facility] medications (procedure) 12:00:00 AM EDT edical, PC) Documentation of current 01/25/2018 MED GEN ([facility] medications (procedure) 12:00:00 AM EDT edical, PC) Documentation of current 01/25/2018 MED GEN ([facility] medications (procedure) 12:00:00 AM EDT edical, PC) Documentation of current 01/25/2018 MED GEN ([facility] medications (procedure) 12:00:00 AM EDT edical, PC) Documentation of current 01/25/2018 MED GEN ([facility] (procedure) 12:00:00 AM EDT edical, PC) Documentation of current 01/25/2018 MED GEN ([facility] (procedure) 12:00:00 AM EDT edical, PC) Documentation of current 01/25/2018 MED GEN ([facility] medications (procedure) 12:00:00 AM EDT edical, PC) OFFICE OUTPATIENT VISIT 01/25/2018 MEDG EN ([facility] 10 MINUTES 12:00:00 AM EDT Medical, PC) Documentation of current 01/25/2018 MED GEN ([facility] medications (procedure) 12:00:00 AM EDT edical, PC) Documentation of current 01/25/2018 MED GEN ([facility] (procedure) 12:00:00 AM EDT edical, PC) Documentation of current 01/25/2018 MED GEN ([facility] (procedure) 12:00:00 AM EDT edical, PC) Documentation of current 01/25/2018 MED GEN ([facility] medications (procedure) 12:00:00 AM EDT edical, PC) Documentation of current 01/25/2018 MED GEN ([facility] (procedure) 12:00:00 AM EDT edical, PC) Documentation of current 01/25/2018 MED GEN ([facility] medications (procedure) 12:00:00 AM EDT edical, PC) Documentation of current 01/25/2018 MED GEN ([facility] medications (procedure) 12:00:00 AM EDT edical, PC) Documentation of current 01/25/2018 MED GEN ([facility] medications (procedure) 12:00:00 AM EDT edical, PC) Documentation of current 01/25/2018 MED GEN ([facility] medications (procedure) 12:00:00 AM EDT edical, PC) Documentation of current 01/25/2018 MED GEN ([facility] medications (procedure) 12:00:00 AM EDT edical, PC) Documentation of current 01/25/2018 MED GEN ([facility] medications (procedure) 12:00:00 AM EDT edical, PC) Documentation of current 01/25/2018 MED GEN ([facility] medications (procedure) 12:00:00 AM EDT edical, PC) Documentation of current 01/25/2018 MED GEN ([facility] medications (procedure) 12:00:00 AM EDT edical, PC) OFFICE OUTPATIENT VISIT 01/25/2018 MEDG EN ([facility] 10 MINUTES 12:00:00 AM EDT Medical, PC) Documentation of current 01/25/2018 MED GEN ([facility] medications (procedure) 12:00:00 AM EDT edical, PC) Documentation of current 01/25/2018 MED GEN ([facility] medications (procedure) 12:00:00 AM EDT edical, PC) Documentation of current 01/25/2018 MED GEN ([facility] medications (procedure) 12:00:00 AM EDT edical, PC) Documentation of current 01/25/2018 MED GEN ([facility] medications (procedure) 12:00:00 AM EDT edical, PC) Documentation of current 01/25/2018 MED GEN ([facility] medications (procedure) 12:00:00 AM EDT edical, PC) Documentation of current 01/25/2018 MED GEN ([facility] medications (procedure) 12:00:00 AM EDT edical, PC) Documentation of current 01/25/2018 MED GEN ([facility] medications (procedure) 12:00:00 AM EDT edical, PC) OFFICE OUTPATIENT VISIT 01/25/2018 MEDG EN ([facility] 10 MINUTES 12:00:00 AM EDT Medical, PC) Documentation of current 01/25/2018 MED GEN ([facility] medications (procedure) 12:00:00 AM EDT edical, PC) Documentation of current 01/25/2018 MED GEN ([facility] medications (procedure) 12:00:00 AM EDT edical, PC) Documentation of current 01/25/2018 MED GEN ([facility] medications (procedure) 12:00:00 AM EDT edical, PC) Documentation of current 01/25/2018 MED GEN ([facility] medications (procedure) 12:00:00 AM EDT edical, PC) Documentation of current 01/25/2018 MED GEN ([facility] medications (procedure) 12:00:00 AM EDT edical, PC) Documentation of current 01/25/2018 MED GEN ([facility] medications (procedure) 12:00:00 AM EDT edical, PC) Documentation of current 01/25/2018 MED GEN ([facility] medications (procedure) 12:00:00 AM EDT [facility], PC) OFFICE OUTPATIENT VISIT 01/25/2018 MEDG EN ([facility] 10 MINUTES 12:00:00 AM EDT Medical, PC) Documentation of current 01/25/2018 MED GEN ([facility] medications (procedure) 12:00:00 AM EDT edical, PC) Documentation of current 01/25/2018 MED GEN ([facility] medications (procedure) 12:00:00 AM EDT edical, PC) Documentation of current 01/25/2018 MED GEN ([facility] medications (procedure) 12:00:00 AM EDT edical, PC) Documentation of current 01/25/2018 MED GEN ([facility] medications (procedure) 12:00:00 AM EDT edical, PC) Documentation of current 01/25/2018 MED GEN ([facility] medications (procedure) 12:00:00 AM EDT edical, PC) Documentation of current 01/25/2018 MED GEN ([facility] medications (procedure) 12:00:00 AM EDT edical, PC) Documentation of current 01/25/2018 MED GEN ([facility] medications (procedure) 12:00:00 AM EDT edical, PC) OFFICE OUTPATIENT VISIT 01/25/2018 MEDG EN ([facility] 10 MINUTES 12:00:00 AM EDT Medical, PC) Documentation of current 01/19/2018 MED GEN ([facility] medications (procedure) 12:00:00 AM EDT edical, PC) Documentation of current 01/19/2018 MED GEN ([facility] medications (procedure) 12:00:00 AM EDT [facility], PC) Documentation of current 01/19/2018 MED GEN ([facility] medications (procedure) 12:00:00 AM EDT edical, PC) Documentation of current 01/19/2018 MED GEN ([facility] medications (procedure) 12:00:00 AM EDT edical, PC) Documentation of current 01/19/2018 MED GEN ([facility] medications (procedure) 12:00:00 AM EDT edical, PC) Documentation of current 01/19/2018 MED GEN ([facility] medications (procedure) 12:00:00 AM EDT M edical, PC) Documentation of current 01/19/2018 MED GEN ([facility] medications (procedure) 12:00:00 AM EDT [facility], [facility]) Documentation of current 01/19/2018 MED GEN ([facility] medications (procedure) 12:00:00 AM EDT [facility]) Documentation of current 01/19/2018 MED GEN ([facility] medications (procedure) 12:00:00 AM EDT [facility]) Documentation of current 01/19/2018 MED GEN ([facility] medications (procedure) 12:00:00 AM EDT [facility]) Documentation of current 01/19/2018 MED GEN ([facility] medications (procedure) 12:00:00 AM EDT [facility], PC) Documentation of current 01/19/2018 MED GEN ([facility] medications (procedure) 12:00:00 AM EDT [facility], [facility]) Documentation of current 01/19/2018 MED GEN ([facility] medications (procedure) 12:00:00 AM EDT [facility]) Documentation of current 01/19/2018 MED GEN ([facility] medications (procedure) 12:00:00 AM EDT [facility]) Documentation of current 01/19/2018 MED GEN ([facility] medications (procedure) 12:00:00 AM EDT [facility]) Documentation of current 01/19/2018 MED GEN ([facility] medications (procedure) 12:00:00 AM EDT [facility]) Documentation of current 01/19/2018 MED GEN ([facility] medications (procedure) 12:00:00 AM EDT [facility]) Documentation of current 01/19/2018 MED GEN ([facility] medications (procedure) 12:00:00 AM EDT [facility]) OFFICE OUTPATIENT VISIT 01/19/2018 MEDG EN ([facility] 15 MINUTES 12:00:00 AM EDT [facility] Wright) Documentation of current 01/19/2018 MED GEN ([facility] medications (procedure) 12:00:00 AM EDT [facility]) Documentation of current 01/19/2018 MED GEN ([facility] medications (procedure) 12:00:00 AM EDT [facility]) Documentation of current 01/19/2018 MED GEN ([facility] medications (procedure) 12:00:00 AM EDT [facility], PC) Documentation of current 01/19/2018 MED GEN ([facility] medications (procedure) 12:00:00 AM EDT M [facility], PC) Documentation of current 01/19/2018 MED GEN ([facility] medications (procedure) 12:00:00 AM EDT [facility], PC) Documentation of current 01/19/2018 MED GEN ([facility] medications (procedure) 12:00:00 AM EDT [facility], PC) Documentation of current 01/19/2018 MED GEN ([facility] medications (procedure) 12:00:00 AM EDT [facility], PC) Documentation of current 01/19/2018 MED GEN ([facility] medications (procedure) 12:00:00 AM EDT M [facility], PC) Documentation of current 01/19/2018 MED GEN ([facility] medications (procedure) 12:00:00 AM EDT natalie, PC) Documentation of current 01/19/2018 MED GEN ([facility] medications (procedure) 12:00:00 AM EDT natalie, PC) Documentation of current 01/19/2018 MED GEN ([facility] medications (procedure) 12:00:00 AM EDT [facility], PC) Documentation of current 01/19/2018 MED GEN ([facility] medications (procedure) 12:00:00 AM EDT [facility], PC) Documentation of current 01/19/2018 MED GEN ([facility] medications (procedure) 12:00:00 AM EDT natalie, PC) Documentation of current 01/19/2018 MED GEN ([facility] medications (procedure) 12:00:00 AM EDT [facility], PC) Documentation of current 01/19/2018 MED GEN ([facility] medications (procedure) 12:00:00 AM EDT [facility], PC) Documentation of current 01/19/2018 MED GEN ([facility] medications (procedure) 12:00:00 AM EDT M [facility], PC) Documentation of current 01/19/2018 MED GEN ([facility] medications (procedure) 12:00:00 AM EDT [facility], PC) Documentation of current 01/19/2018 MED GEN ([facility] medications (procedure) 12:00:00 AM EDT natalie, PC) OFFICE OUTPATIENT VISIT 01/19/2018 MEDG EN ([facility] 15 MINUTES 12:00:00 AM EDT Medical, PC) Documentation of current 01/19/2018 MED GEN ([facility] medications (procedure) 12:00:00 AM EDT [facility], PC) Documentation of current 01/19/2018 MED GEN ([facility] medications (procedure) 12:00:00 AM EDT [facility], PC) Documentation of current 01/19/2018 MED GEN ([facility] medications (procedure) 12:00:00 AM EDT [facility], PC) Documentation of current 01/19/2018 MED GEN ([facility] medications (procedure) 12:00:00 AM EDT [facility], PC) Documentation of current 01/19/2018 MED GEN ([facility] medications (procedure) 12:00:00 AM EDT edical, PC) Documentation of current 01/19/2018 MED GEN ([facility] medications (procedure) 12:00:00 AM EDT edical, PC) Documentation of current 01/19/2018 MED GEN ([facility] medications (procedure) 12:00:00 AM EDT edical, PC) Documentation of current 01/19/2018 MED GEN ([facility] medications (procedure) 12:00:00 AM EDT [facility], PC) Documentation of current 01/19/2018 MED GEN ([facility] medications (procedure) 12:00:00 AM EDT edical, PC) Documentation of current 01/19/2018 MED GEN ([facility] medications (procedure) 12:00:00 AM EDT [facility], PC) Documentation of current 01/19/2018 MED GEN ([facility] medications (procedure) 12:00:00 AM EDT edical, PC) Documentation of current 01/19/2018 MED GEN ([facility] medications (procedure) 12:00:00 AM EDT [facility], PC) Documentation of current 01/19/2018 MED GEN ([facility] medications (procedure) 12:00:00 AM EDT edical, PC) Documentation of current 01/19/2018 MED GEN ([facility] medications (procedure) 12:00:00 AM EDT natalie, PC) Documentation of current 01/19/2018 MED GEN ([facility] medications (procedure) 12:00:00 AM EDT natalie, PC) Documentation of current 01/19/2018 MED GEN ([facility] medications (procedure) 12:00:00 AM EDT natalie, PC) Documentation of current 01/19/2018 MED GEN ([facility] medications (procedure) 12:00:00 AM EDT natalie, PC) Documentation of current 01/19/2018 MED GEN ([facility] medications (procedure) 12:00:00 AM EDT natalie, PC) OFFICE OUTPATIENT VISIT 01/19/2018 MEDG EN ([facility] 15 MINUTES 12:00:00 AM [facility] Medical, PC) Documentation of current 01/19/2018 MED GEN ([facility] medications (procedure) 12:00:00 AM EDT natalei, PC) Documentation of current 01/19/2018 MED GEN ([facility] medications (procedure) 12:00:00 AM EDT natalie, PC) Documentation of current 01/19/2018 MED GEN ([facility] medications (procedure) 12:00:00 AM EDT natalie, PC) Documentation of current 01/19/2018 MED GEN ([facility] medications (procedure) 12:00:00 AM EDT natalie, PC) Documentation of current 01/19/2018 MED GEN ([facility] medications (procedure) 12:00:00 AM EDT [facility], PC) Documentation of current 01/19/2018 MED GEN ([facility] medications (procedure) 12:00:00 AM EDT natalie, PC) Documentation of current 01/19/2018 MED GEN ([facility] medications (procedure) 12:00:00 AM EDT [facility], PC) Documentation of current 01/19/2018 MED GEN ([facility] medications (procedure) 12:00:00 AM EDT natalie, PC) Documentation of current 01/19/2018 MED GEN ([facility] medications (procedure) 12:00:00 AM EDT [facility], PC) Documentation of current 01/19/2018 MED GEN ([facility] medications (procedure) 12:00:00 AM EDT [facility], PC) Documentation of current 01/19/2018 MED GEN ([facility] medications (procedure) 12:00:00 AM EDT natalie, PC) Documentation of current 01/19/2018 MED GEN ([facility] medications (procedure) 12:00:00 AM EDT [facility], PC) Documentation of current 01/19/2018 MED GEN ([facility] medications (procedure) 12:00:00 AM EDT [facility], PC) Documentation of current 01/19/2018 MED GEN ([facility] medications (procedure) 12:00:00 AM EDT natalie, PC) Documentation of current 01/19/2018 MED GEN ([facility] medications (procedure) 12:00:00 AM EDT natalie, PC) Documentation of current 01/19/2018 MED GEN ([facility] medications (procedure) 12:00:00 AM EDT natalie, PC) Documentation of current 01/19/2018 MED GEN ([facility] medications (procedure) 12:00:00 AM EDT natalie, PC) Documentation of current 01/19/2018 MED GEN ([facility] medications (procedure) 12:00:00 AM EDT natalie, PC) OFFICE OUTPATIENT VISIT 01/19/2018 MEDG EN ([facility] 15 MINUTES 12:00:00 AM EDT [facility], PC) Documentation of current 01/19/2018 MED GEN ([facility] medications (procedure) 12:00:00 AM EDT natalie, PC) Documentation of current 01/19/2018 MED GEN ([facility] medications (procedure) 12:00:00 AM EDT natalie, PC) Documentation of current 01/19/2018 MED GEN ([facility] medications (procedure) 12:00:00 AM EDT natalie, PC) Documentation of current 01/19/2018 MED GEN ([facility] medications (procedure) 12:00:00 AM EDT natalie, PC) Documentation of current 01/19/2018 MED GEN ([facility] medications (procedure) 12:00:00 AM EDT [facility], PC) Documentation of current 01/19/2018 MED GEN ([facility] medications (procedure) 12:00:00 AM EDT natalie, PC) Documentation of current 01/19/2018 MED GEN ([facility] medications (procedure) 12:00:00 AM EDT natalie, PC) Documentation of current 01/19/2018 MED GEN ([facility] medications (procedure) 12:00:00 AM EDT [facility], PC) Documentation of current 01/19/2018 MED GEN ([facility] medications (procedure) 12:00:00 AM EDT [facility], PC) Documentation of current 01/19/2018 MED GEN ([facility] medications (procedure) 12:00:00 AM EDT natalie, PC) Documentation of current 01/19/2018 MED GEN ([facility] medications (procedure) 12:00:00 AM EDT natalie, PC) Documentation of current 01/19/2018 MED GEN ([facility] medications (procedure) 12:00:00 AM EDT natalie, PC) Documentation of current 01/19/2018 MED GEN ([facility] medications (procedure) 12:00:00 AM EDT natalie, PC) Documentation of current 01/19/2018 MED GEN ([facility] medications (procedure) 12:00:00 AM EDT natalie, PC) Documentation of current 01/19/2018 MED GEN ([facility] medications (procedure) 12:00:00 AM EDT natalie, PC) Documentation of current 01/19/2018 MED GEN ([facility] medications (procedure) 12:00:00 AM EDT natalie, PC) Documentation of current 01/19/2018 MED GEN ([facility] medications (procedure) 12:00:00 AM EDT [facility] PC) Documentation of current 01/19/2018 MED GEN ([facility] medications (procedure) 12:00:00 AM EDT natalie, PC) OFFICE OUTPATIENT VISIT 01/19/2018 MEDG EN ([facility] 15 MINUTES 12:00:00 AM EDT Kyle, PC) Documentation of current 01/19/2018 MED GEN ([facility] medications (procedure) 12:00:00 AM EDT natalie, PC) Documentation of current 01/19/2018 MED GEN ([facility] medications (procedure) 12:00:00 AM EDT natalie, PC) Documentation of current 01/19/2018 MED GEN ([facility] medications (procedure) 12:00:00 AM EDT natalie, PC) OFFICE OUTPATIENT VISIT 01/19/2018 MEDG EN ([facility] 15 MINUTES 12:00:00 AM EDT Medical, PC) Documentation of current 01/19/2018 MED GEN ([facility] medications (procedure) 12:00:00 AM EDT [facility], PC) Documentation of current 01/19/2018 MED GEN ([facility] medications (procedure) 12:00:00 AM EDT [facility]co[facility], PC) Documentation of current 01/19/2018 MED GEN ([facility] medications (procedure) 12:00:00 AM EDT [facility]co[facility], PC) Documentation of current 01/19/2018 MED GEN ([facility] medications (procedure) 12:00:00 AM EDT [facility]arcoical, PC) Documentation of current 01/19/2018 MED GEN ([facility] medications (procedure) 12:00:00 AM EDT edical, PC) Documentation of current 01/19/2018 MED GEN ([facility] medications (procedure) 12:00:00 AM EDT [facility]arcoical, PC) Documentation of current 01/19/2018 MED GEN ([facility] medications (procedure) 12:00:00 AM EDT demarcoical, PC) Documentation of current 01/19/2018 MED GEN ([facility] medications (procedure) 12:00:00 AM EDT [facility]arcoical, PC) Documentation of current 01/19/2018 MED GEN ([facility] medications (procedure) 12:00:00 AM EDT [facility]arcoical, PC) Documentation of current 01/19/2018 MED GEN ([facility] medications (procedure) 12:00:00 AM EDT natalie, PC) Documentation of current 01/19/2018 MED GEN ([facility] medications (procedure) 12:00:00 AM EDT [facility], PC) Documentation of current 01/19/2018 MED GEN ([facility] medications (procedure) 12:00:00 AM EDT [facility], PC) Documentation of current 01/19/2018 MED GEN ([facility] medications (procedure) 12:00:00 AM EDT [facility]arcoical, PC) Documentation of current 01/19/2018 MED GEN ([facility] medications (procedure) 12:00:00 AM EDT natalie, PC) Documentation of current 01/19/2018 MED GEN ([facility] medications (procedure) 12:00:00 AM EDT natalie, PC) Documentation of current 01/19/2018 MED GEN ([facility] medications (procedure) 12:00:00 AM EDT natalie, PC) Documentation of current 01/19/2018 MED GEN ([facility] medications (procedure) 12:00:00 AM EDT natalie, PC) Documentation of current 01/19/2018 MED GEN ([facility] medications (procedure) 12:00:00 AM EDT natalie, PC) OFFICE OUTPATIENT VISIT 01/19/2018 MEDG EN ([facility] 15 MINUTES 12:00:00 AM ED Medical, PC) Documentation of current 01/19/2018 MED GEN ([facility] medications (procedure) 12:00:00 AM EDT natalie, PC) Documentation of current 01/19/2018 MED GEN ([facility] medications (procedure) 12:00:00 AM EDT natalie, PC) Documentation of current 01/19/2018 MED GEN ([facility] medications (procedure) 12:00:00 AM EDT natalie, PC) Documentation of current 01/19/2018 MED GEN ([facility] medications (procedure) 12:00:00 AM EDT natalie, PC) Documentation of current 01/19/2018 MED GEN ([facility] medications (procedure) 12:00:00 AM EDT [facility], PC) Documentation of current 01/19/2018 MED GEN ([facility] medications (procedure) 12:00:00 AM EDT natalie, PC) Documentation of current 01/19/2018 MED GEN ([facility] medications (procedure) 12:00:00 AM EDT [facility], PC) Documentation of current 01/19/2018 MED GEN ([facility] medications (procedure) 12:00:00 AM EDT natalie, PC) Documentation of current 01/19/2018 MED GEN ([facility] medications (procedure) 12:00:00 AM EDT [facility], PC) Documentation of current 01/19/2018 MED GEN ([facility] medications (procedure) 12:00:00 AM EDT [facility], PC) Documentation of current 01/19/2018 MED GEN ([facility] medications (procedure) 12:00:00 AM EDT natalie, PC) Documentation of current 01/19/2018 MED GEN ([facility] medications (procedure) 12:00:00 AM EDT natalie, PC) Documentation of current 01/19/2018 MED GEN ([facility] medications (procedure) 12:00:00 AM EDT natalie, PC) Documentation of current 01/19/2018 MED GEN ([facility] medications (procedure) 12:00:00 AM EDT natalie, PC) Documentation of current 01/19/2018 MED GEN ([facility] medications (procedure) 12:00:00 AM EDT natalie, PC) Documentation of current 01/19/2018 MED GEN ([facility] medications (procedure) 12:00:00 AM EDT natalie, PC) Documentation of current 01/19/2018 MED GEN ([facility] medications (procedure) 12:00:00 AM EDT natalie, PC) Documentation of current 01/19/2018 MED GEN ([facility] medications (procedure) 12:00:00 AM EDT natalie, PC) Documentation of current 01/19/2018 MED GEN ([facility] medications (procedure) 12:00:00 AM EDT natalie, PC) Documentation of current 01/19/2018 MED GEN ([facility] medications (procedure) 12:00:00 AM EDT [facility], PC) Documentation of current 01/19/2018 MED GEN ([facility] medications (procedure) 12:00:00 AM EDT natalie PC) Documentation of current 01/19/2018 MED GEN ([facility] medications (procedure) 12:00:00 AM EDT [facility]coical, PC) Documentation of current 01/19/2018 MED GEN ([facility] medications (procedure) 12:00:00 AM EDT natalie, PC) Documentation of current 01/19/2018 MED GEN ([facility] medications (procedure) 12:00:00 AM EDT [facility], PC) OFFICE OUTPATIENT VISIT 01/19/2018 MEDG EN ([facility] 15 MINUTES 12:00:00 AM EDT Medical, PC) Documentation of current 01/19/2018 MED GEN ([facility] medications (procedure) 12:00:00 AM EDT M natalie, PC) Documentation of current 01/19/2018 MED GEN ([facility] medications (procedure) 12:00:00 AM EDT M natalie, PC) Documentation of current 01/19/2018 MED GEN ([facility] medications (procedure) 12:00:00 AM EDT M demarcoical, PC) Documentation of current 01/19/2018 MED GEN ([facility] medications (procedure) 12:00:00 AM EDT [facility]arcoical, PC) Documentation of current 01/19/2018 MED GEN ([facility] medications (procedure) 12:00:00 AM EDT M natalie, PC) Documentation of current 01/19/2018 MED GEN ([facility] medications (procedure) 12:00:00 AM EDT M natalie, PC) Documentation of current 01/19/2018 MED GEN ([facility] medications (procedure) 12:00:00 AM EDT natalie, PC) Documentation of current 01/19/2018 MED GEN ([facility] medications (procedure) 12:00:00 AM EDT natalie, PC) Documentation of current 01/19/2018 MED GEN ([facility] medications (procedure) 12:00:00 AM EDT natalie, PC) Documentation of current 01/19/2018 MED GEN ([facility] medications (procedure) 12:00:00 AM EDT natalie, PC) Documentation of current 01/19/2018 MED GEN ([facility] medications (procedure) 12:00:00 AM EDT M natalie, PC) Documentation of current 01/19/2018 MED GEN ([facility] medications (procedure) 12:00:00 AM EDT M natalie, PC) Documentation of current 01/19/2018 MED GEN ([facility] medications (procedure) 12:00:00 AM EDT M demarcoical, PC) Documentation of current 01/19/2018 MED GEN ([facility] medications (procedure) 12:00:00 AM EDT M natalie, PC) Documentation of current 01/19/2018 MED GEN ([facility] medications (procedure) 12:00:00 AM EDT M natalie, PC) Documentation of current 01/19/2018 MED GEN ([facility] medications (procedure) 12:00:00 AM EDT [facility]arco[facility], PC) Documentation of current 01/19/2018 MED GEN ([facility] medications (procedure) 12:00:00 AM EDT [facility]coical, PC) Documentation of current 01/19/2018 MED GEN ([facility] medications (procedure) 12:00:00 AM EDT [facility]coical, PC) OFFICE OUTPATIENT VISIT 01/19/2018 MEDG EN ([facility] 15 MINUTES 12:00:00 AM EDT Medical, PC) Documentation of current 01/19/2018 MED GEN ([facility] medications (procedure) 12:00:00 AM EDT demarcoical, PC) Documentation of current 01/19/2018 MED GEN ([facility] medications (procedure) 12:00:00 AM EDT [facility]arco[facility], PC) Documentation of current 01/19/2018 MED GEN ([facility] medications (procedure) 12:00:00 AM EDT demarcoical, PC) Documentation of current 01/19/2018 MED GEN ([facility] medications (procedure) 12:00:00 AM EDT natalie, PC) Documentation of current 01/19/2018 MED GEN ([facility] medications (procedure) 12:00:00 AM EDT [facility]co[facility], PC) Documentation of current 01/19/2018 MED GEN ([facility] medications (procedure) 12:00:00 AM EDT [facility]arcoical, PC) Documentation of current 01/19/2018 MED GEN ([facility] medications (procedure) 12:00:00 AM EDT [facility]arcoical, PC) Documentation of current 01/19/2018 MED GEN ([facility] medications (procedure) 12:00:00 AM EDT [facility]arcoical, PC) Documentation of current 01/19/2018 MED GEN ([facility] medications (procedure) 12:00:00 AM EDT edical, PC) Documentation of current 01/19/2018 MED GEN ([facility] medications (procedure) 12:00:00 AM EDT [facility]arco[facility], PC) Documentation of current 01/19/2018 MED GEN ([facility] medications (procedure) 12:00:00 AM EDT demarcoical, PC) Documentation of current 01/19/2018 MED GEN ([facility] medications (procedure) 12:00:00 AM EDT [facility]) Documentation of current 01/19/2018 MED GEN ([facility] (procedure) 12:00:00 AM EDT [facility], PC) Documentation of current 01/19/2018 MED GEN ([facility] (procedure) 12:00:00 AM EDT [facility], PC) Documentation of current 01/19/2018 MED GEN ([facility] (procedure) 12:00:00 AM EDT [facility], PC) Documentation of current 01/19/2018 MED GEN ([facility] (procedure) 12:00:00 AM EDT [facility]) Documentation of current 01/19/2018 MED GEN ([facility] (procedure) 12:00:00 AM EDT [facility], [facility]) Documentation of current 01/19/2018 MED GEN ([facility] (procedure) 12:00:00 AM EDT [facility], [facility]) OFFICE OUTPATIENT VISIT 01/19/2018 MEDG EN ([facility] 15 MINUTES 12:00:00 AM EDT [facility], PC) Documentation of current 01/19/2018 MED GEN ([facility] (procedure) 12:00:00 AM EDT [facility], [facility]) Documentation of current 01/19/2018 MED GEN ([facility] (procedure) 12:00:00 AM EDT [facility], [facility]) Documentation of current 01/19/2018 MED GEN ([facility] (procedure) 12:00:00 AM EDT [facility], [facility]) Documentation of current 01/19/2018 MED GEN ([facility] (procedure) 12:00:00 AM EDT [facility], [facility]) Documentation of current 01/19/2018 MED GEN ([facility] (procedure) 12:00:00 AM EDT [facility], PC) Documentation of current 01/19/2018 MED GEN ([facility] (procedure) 12:00:00 AM EDT [facility], PC) Documentation of current 01/19/2018 MED GEN ([facility] (procedure) 12:00:00 AM EDT [facility], PC) Documentation of current 01/19/2018 MED GEN ([facility] (procedure) 12:00:00 AM EDT [facility], [facility]) Documentation of current 01/19/2018 MED GEN ([facility] (procedure) 12:00:00 AM EDT [facility], [facility]) Documentation of current 01/19/2018 MED GEN ([facility] (procedure) 12:00:00 AM EDT [facility], [facility]) Documentation of current 01/19/2018 MED GEN ([facility] (procedure) 12:00:00 AM EDT [facility], [facility]) Documentation of current 01/19/2018 MED GEN ([facility] (procedure) 12:00:00 AM EDT [facility], [facility]) Documentation of current 01/19/2018 MED GEN ([facility] (procedure) 12:00:00 AM EDT [facility], [facility]) Documentation of current 01/19/2018 MED GEN ([facility] (procedure) 12:00:00 AM EDT [facility], [facility]) Documentation of current 01/19/2018 MED GEN ([facility] (procedure) 12:00:00 AM EDT [facility], [facility]) Documentation of current 01/19/2018 MED GEN ([facility] (procedure) 12:00:00 AM EDT [facility], [facility]) Documentation of current 01/19/2018 MED GEN ([facility] (procedure) 12:00:00 AM EDT [facility], [facility]) Documentation of current 01/19/2018 MED GEN ([facility] (procedure) 12:00:00 AM EDT [facility], [facility]) OFFICE OUTPATIENT VISIT 01/19/2018 MEDG EN ([facility] 15 MINUTES 12:00:00 AM EDT [facility], [facility]) Documentation of current 01/04/2018 MED GEN ([facility] (procedure) 12:00:00 AM EDT [facility], [facility]) Documentation of current 01/04/2018 MED GEN ([facility] (procedure) 12:00:00 AM EDT [facility], PC) Documentation of current 01/04/2018 MED GEN ([facility] (procedure) 12:00:00 AM EDT [facility], [facility]) Documentation of current 01/04/2018 MED GEN ([facility] (procedure) 12:00:00 AM EDT [facility], PC) Documentation of current 01/04/2018 MED GEN ([facility] (procedure) 12:00:00 AM EDT [facility], PC) Documentation of current 01/04/2018 MED GEN ([facility] (procedure) 12:00:00 AM EDT [facility], PC) Documentation of current 01/04/2018 MED GEN ([facility] (procedure) 12:00:00 AM EDT [facility], PC) Documentation of current 01/04/2018 MED GEN ([facility] (procedure) 12:00:00 AM EDT [facility], PC) Documentation of current 01/04/2018 MED GEN ([facility] (procedure) 12:00:00 AM EDT [facility], PC) Documentation of current 01/04/2018 MED GEN ([facility] (procedure) 12:00:00 AM EDT [facility], PC) Documentation of current 01/04/2018 MED GEN ([facility] (procedure) 12:00:00 AM EDT [facility], [facility]) Documentation of current 01/04/2018 MED GEN ([facility] (procedure) 12:00:00 AM EDT [facility], [facility]) Documentation of current 01/04/2018 MED GEN ([facility] (procedure) 12:00:00 AM EDT [facility], [facility]) Documentation of current 01/04/2018 MED GEN ([facility] (procedure) 12:00:00 AM EDT [facility], [facility]) OFFICE OUTPATIENT VISIT 01/04/2018 MEDG EN ([facility] 15 MINUTES 12:00:00 AM EDT [facility], [facility]) Documentation of current 01/04/2018 MED GEN ([facility] (procedure) 12:00:00 AM EDT [facility], [facility]) Documentation of current 01/04/2018 MED GEN ([facility] (procedure) 12:00:00 AM EDT [facility], PC) Documentation of current 01/04/2018 MED GEN ([facility] (procedure) 12:00:00 AM EDT [facility], PC) Documentation of current 01/04/2018 MED GEN ([facility] (procedure) 12:00:00 AM EDT [facility], [facility]) Documentation of current 01/04/2018 MED GEN ([facility] (procedure) 12:00:00 AM EDT [facility], PC) Documentation of current 01/04/2018 MED GEN ([facility] (procedure) 12:00:00 AM EDT [facility], PC) Documentation of current 01/04/2018 MED GEN ([facility] (procedure) 12:00:00 AM EDT [facility], PC) Documentation of current 01/04/2018 MED GEN ([facility] (procedure) 12:00:00 AM EDT [facility], PC) Documentation of current 01/04/2018 MED GEN ([facility] (procedure) 12:00:00 AM EDT [facility], PC) Documentation of current 01/04/2018 MED GEN ([facility] (procedure) 12:00:00 AM EDT [facility], PC) Documentation of current 01/04/2018 MED GEN ([facility] (procedure) 12:00:00 AM EDT [facility], PC) Documentation of current 01/04/2018 MED GEN ([facility] (procedure) 12:00:00 AM EDT [facility], PC) Documentation of current 01/04/2018 MED GEN ([facility] (procedure) 12:00:00 AM EDT [facility], PC) Documentation of current 01/04/2018 MED GEN ([facility] (procedure) 12:00:00 AM EDT [facility], PC) Documentation of current 01/04/2018 MED GEN ([facility] (procedure) 12:00:00 AM EDT [facility], PC) Documentation of current 01/04/2018 MED GEN ([facility] (procedure) 12:00:00 AM EDT [facility], PC) OFFICE OUTPATIENT VISIT 01/04/2018 MEDG EN ([facility] 15 MINUTES 12:00:00 AM EDT [facility], [facility]) Documentation of current 01/04/2018 MED GEN ([facility] (procedure) 12:00:00 AM EDT [facility], PC) Documentation of current 01/04/2018 MED GEN ([facility] (procedure) 12:00:00 AM EDT [facility], PC) Documentation of current 01/04/2018 MED GEN ([facility] (procedure) 12:00:00 AM EDT [facility], PC) Documentation of current 01/04/2018 MED GEN ([facility] (procedure) 12:00:00 AM EDT [facility], PC) Documentation of current 01/04/2018 MED GEN ([facility] (procedure) 12:00:00 AM EDT [facility], PC) Documentation of current 01/04/2018 MED GEN ([facility] (procedure) 12:00:00 AM EDT [facility], PC) Documentation of current 01/04/2018 MED GEN ([facility] (procedure) 12:00:00 AM EDT [facility], PC) Documentation of current 01/04/2018 MED GEN ([facility] (procedure) 12:00:00 AM EDT [facility], PC) Documentation of current 01/04/2018 MED GEN ([facility] (procedure) 12:00:00 AM EDT [facility], PC) Documentation of current 01/04/2018 MED GEN ([facility] (procedure) 12:00:00 AM EDT [facility], PC) Documentation of current 01/04/2018 MED GEN ([facility] (procedure) 12:00:00 AM EDT [facility], PC) Documentation of current 01/04/2018 MED GEN ([facility] (procedure) 12:00:00 AM EDT [facility], [facility]) Documentation of current 01/04/2018 MED GEN ([facility] (procedure) 12:00:00 AM EDT [facility], PC) Documentation of current 01/04/2018 MED GEN ([facility] (procedure) 12:00:00 AM EDT [facility], PC) Documentation of current 01/04/2018 MED GEN ([facility] (procedure) 12:00:00 AM EDT [facility], PC) OFFICE OUTPATIENT VISIT 01/04/2018 MEDG EN ([facility] 15 MINUTES 12:00:00 AM EDT [facility], [facility]) Documentation of current 01/04/2018 MED GEN ([facility] (procedure) 12:00:00 AM EDT [facility], PC) Documentation of current 01/04/2018 MED GEN ([facility] (procedure) 12:00:00 AM EDT [facility], [facility]) Documentation of current 01/04/2018 MED GEN ([facility] (procedure) 12:00:00 AM EDT [facility], PC) Documentation of current 01/04/2018 MED GEN ([facility] (procedure) 12:00:00 AM EDT [facility], PC) Documentation of current 01/04/2018 MED GEN ([facility] (procedure) 12:00:00 AM EDT [facility], PC) Documentation of current 01/04/2018 MED GEN ([facility] (procedure) 12:00:00 AM EDT [facility], [facility]) Documentation of current 01/04/2018 MED GEN ([facility] (procedure) 12:00:00 AM EDT [facility], PC) Documentation of current 01/04/2018 MED GEN ([facility] (procedure) 12:00:00 AM EDT [facility], PC) Documentation of current 01/04/2018 MED GEN ([facility] (procedure) 12:00:00 AM EDT [facility], PC) Documentation of current 01/04/2018 MED GEN ([facility] (procedure) 12:00:00 AM EDT [facility], PC) Documentation of current 01/04/2018 MED GEN ([facility] (procedure) 12:00:00 AM EDT [facility], PC) Documentation of current 01/04/2018 MED GEN ([facility] (procedure) 12:00:00 AM EDT [facility], PC) Documentation of current 01/04/2018 MED GEN ([facility] (procedure) 12:00:00 AM EDT [facility], [facility]) Documentation of current 01/04/2018 MED GEN ([facility] (procedure) 12:00:00 AM EDT [facility], [facility]) Documentation of current 01/04/2018 MED GEN ([facility] (procedure) 12:00:00 AM EDT [facility], [facility]) OFFICE OUTPATIENT VISIT 01/04/2018 MEDG EN ([facility] 15 MINUTES 12:00:00 AM EDT [facility], [facility]) Documentation of current 01/04/2018 MED GEN ([facility] (procedure) 12:00:00 AM EDT [facility], PC) Documentation of current 01/04/2018 MED GEN ([facility] (procedure) 12:00:00 AM EDT [facility], PC) Documentation of current 01/04/2018 MED GEN ([facility] (procedure) 12:00:00 AM EDT [facility], PC) Documentation of current 01/04/2018 MED GEN ([facility] (procedure) 12:00:00 AM EDT [facility], PC) Documentation of current 01/04/2018 MED GEN ([facility] (procedure) 12:00:00 AM EDT [facility], [facility]) Documentation of current 01/04/2018 MED GEN ([facility] (procedure) 12:00:00 AM EDT [facility], PC) Documentation of current 01/04/2018 MED GEN ([facility] (procedure) 12:00:00 AM EDT [facility], PC) Documentation of current 01/04/2018 MED GEN ([facility] (procedure) 12:00:00 AM EDT [facility], [facility]) Documentation of current 01/04/2018 MED GEN ([facility] (procedure) 12:00:00 AM EDT [facility], PC) Documentation of current 01/04/2018 MED GEN ([facility] (procedure) 12:00:00 AM EDT [facility], PC) Documentation of current 01/04/2018 MED GEN ([facility] (procedure) 12:00:00 AM EDT [facility], PC) Documentation of current 01/04/2018 MED GEN ([facility] (procedure) 12:00:00 AM EDT [facility], [facility]) Documentation of current 01/04/2018 MED GEN ([facility] (procedure) 12:00:00 AM EDT [facility], PC) Documentation of current 01/04/2018 MED GEN ([facility] (procedure) 12:00:00 AM EDT [facility], PC) Documentation of current 01/04/2018 MED GEN ([facility] (procedure) 12:00:00 AM EDT [facility], PC) OFFICE OUTPATIENT VISIT 01/04/2018 MEDG EN ([facility] 15 MINUTES 12:00:00 AM EDT [facility], PC) OFFICE OUTPATIENT VISIT 01/04/2018 MEDG EN ([facility] 15 MINUTES 12:00:00 AM EDT [facility], PC) Documentation of current 01/04/2018 MED GEN ([facility] medications (procedure) 12:00:00 AM EDT [facility], PC) Documentation of current 01/04/2018 MED GEN ([facility] (procedure) 12:00:00 AM EDT [facility], PC) Documentation of current 01/04/2018 MED GEN ([facility] (procedure) 12:00:00 AM EDT [facility], PC) Documentation of current 01/04/2018 MED GEN ([facility] (procedure) 12:00:00 AM EDT [facility], PC) Documentation of current 01/04/2018 MED GEN ([facility] (procedure) 12:00:00 AM EDT [facility], PC) Documentation of current 01/04/2018 MED GEN ([facility] (procedure) 12:00:00 AM EDT [facility], PC) Documentation of current 01/04/2018 MED GEN ([facility] (procedure) 12:00:00 AM EDT [facility], PC) Documentation of current 01/04/2018 MED GEN ([facility] (procedure) 12:00:00 AM EDT [facility], PC) Documentation of current 01/04/2018 MED GEN ([facility] (procedure) 12:00:00 AM EDT [facility], PC) Documentation of current 01/04/2018 MED GEN ([facility] (procedure) 12:00:00 AM EDT [facility], PC) Documentation of current 01/04/2018 MED GEN ([facility] (procedure) 12:00:00 AM EDT [facility], PC) Documentation of current 01/04/2018 MED GEN ([facility] (procedure) 12:00:00 AM EDT [facility], PC) Documentation of current 01/04/2018 MED GEN ([facility] (procedure) 12:00:00 AM EDT [facility], PC) Documentation of current 01/04/2018 MED GEN ([facility] (procedure) 12:00:00 AM EDT [facility], PC) Documentation of current 01/04/2018 MED GEN ([facility] (procedure) 12:00:00 AM EDT [facility], PC) OFFICE OUTPATIENT VISIT 01/04/2018 MEDG EN ([facility] 15 MINUTES 12:00:00 AM ED [facility], [facility]) Documentation of current 01/04/2018 MED GEN ([facility] (procedure) 12:00:00 AM EDT [facility], PC) Documentation of current 01/04/2018 MED GEN ([facility] (procedure) 12:00:00 AM EDT [facility], PC) Documentation of current 01/04/2018 MED GEN ([facility] (procedure) 12:00:00 AM EDT [facility], PC) Documentation of current 01/04/2018 MED GEN ([facility] (procedure) 12:00:00 AM EDT [facility], PC) Documentation of current 01/04/2018 MED GEN ([facility] (procedure) 12:00:00 AM EDT [facility], PC) Documentation of current 01/04/2018 MED GEN ([facility] (procedure) 12:00:00 AM EDT [facility], PC) Documentation of current 01/04/2018 MED GEN ([facility] (procedure) 12:00:00 AM EDT [facility], PC) Documentation of current 01/04/2018 MED GEN ([facility] (procedure) 12:00:00 AM EDT [facility], PC) Documentation of current 01/04/2018 MED GEN ([facility] (procedure) 12:00:00 AM EDT [facility], PC) Documentation of current 01/04/2018 MED GEN ([facility] (procedure) 12:00:00 AM EDT [facility], PC) Documentation of current 01/04/2018 MED GEN ([facility] (procedure) 12:00:00 AM EDT [facility], PC) Documentation of current 01/04/2018 MED GEN ([facility] (procedure) 12:00:00 AM EDT [facility], PC) Documentation of current 01/04/2018 MED GEN ([facility] (procedure) 12:00:00 AM EDT [facility], PC) Documentation of current 01/04/2018 MED GEN ([facility] (procedure) 12:00:00 AM EDT [facility], [facility]) Documentation of current 01/04/2018 MED GEN ([facility] (procedure) 12:00:00 AM EDT [facility], [facility]) OFFICE OUTPATIENT VISIT 01/04/2018 MEDG EN [facility] current 01/04/2018 MED GEN ([facility] medications (procedure) 12:00:00 AM EDT [facility], [facility]) Documentation of current 01/04/2018 MED GEN ([facility] medications (procedure) 12:00:00 AM EDT [facility], [facility]) Documentation of current 01/04/2018 MED GEN ([facility] medications (procedure) 12:00:00 AM EDT [facility], [facility]) Documentation of current 01/04/2018 MED GEN ([facility] medications (procedure) 12:00:00 AM EDT [facility], [facility]) Documentation of current 01/04/2018 MED GEN ([facility] (procedure) 12:00:00 AM EDT [facility], PC) Documentation of current 01/04/2018 MED GEN ([facility] (procedure) 12:00:00 AM EDT [facility], PC) Documentation of current 01/04/2018 MED GEN ([facility] (procedure) 12:00:00 AM EDT [facility], PC) Documentation of current 01/04/2018 MED GEN ([facility] medications (procedure) 12:00:00 AM EDT [facility], [facility]) Documentation of current 01/04/2018 MED GEN ([facility] (procedure) 12:00:00 AM EDT [facility], PC) Documentation of current 01/04/2018 MED GEN ([facility] medications (procedure) 12:00:00 AM EDT [facility], [facility]) Documentation of current 01/04/2018 MED GEN ([facility] medications (procedure) 12:00:00 AM EDT [facility], [facility]) Documentation of current 01/04/2018 MED GEN ([facility] medications (procedure) 12:00:00 AM EDT [facility], [facility]) Documentation of current 01/04/2018 MED GEN ([facility] medications (procedure) 12:00:00 AM EDT [facility], PC) Documentation of current 01/04/2018 MED GEN ([facility] medications (procedure) 12:00:00 AM EDT [facility], PC) Documentation of current 01/04/2018 MED GEN ([facility] medications (procedure) 12:00:00 AM EDT [facility], [facility]) OFFICE OUTPATIENT VISIT 01/04/2018 MEDG EN ([facility] 15 MINUTES 12:00:00 AM EDT [facility], PC) Documentation of current 01/04/2018 MED GEN ([facility] (procedure) 12:00:00 AM EDT [facility], PC) Documentation of current 01/04/2018 MED GEN ([facility] (procedure) 12:00:00 AM EDT [facility], PC) Documentation of current 01/04/2018 MED GEN ([facility] (procedure) 12:00:00 AM EDT [facility], [facility]) Documentation of current 01/04/2018 MED GEN ([facility] (procedure) 12:00:00 AM EDT [facility], PC) Documentation of current 01/04/2018 MED GEN ([facility] (procedure) 12:00:00 AM EDT [facility], PC) Documentation of current 01/04/2018 MED GEN ([facility] (procedure) 12:00:00 AM EDT [facility], [facility]) Documentation of current 01/04/2018 MED GEN ([facility] (procedure) 12:00:00 AM EDT [facility], PC) Documentation of current 01/04/2018 MED GEN ([facility] (procedure) 12:00:00 AM EDT [facility], PC) Documentation of current 01/04/2018 MED GEN ([facility] (procedure) 12:00:00 AM EDT [facility], [facility]) Documentation of current 01/04/2018 MED GEN ([facility] (procedure) 12:00:00 AM EDT [facility], PC) Documentation of current 01/04/2018 MED GEN ([facility] (procedure) 12:00:00 AM EDT [facility], [facility]) Documentation of current 01/04/2018 MED GEN ([facility] (procedure) 12:00:00 AM EDT [facility], PC) Documentation of current 01/04/2018 MED GEN ([facility] (procedure) 12:00:00 AM EDT [facility], PC) Documentation of current 01/04/2018 MED GEN ([facility] (procedure) 12:00:00 AM EDT [facility], PC) Documentation of current 01/04/2018 MED GEN ([facility] (procedure) 12:00:00 AM EDT [facility], PC) OFFICE OUTPATIENT VISIT 01/04/2018 MEDG EN ([facility] 15 MINUTES 12:00:00 AM EDT [facility], PC) Documentation of current 01/04/2018 MED GEN ([facility] (procedure) 12:00:00 AM EDT [facility], PC) Documentation of current 01/04/2018 MED GEN ([facility] medications (procedure) 12:00:00 AM EDT edical, PC) Documentation of current 01/04/2018 MED GEN ([facility] medications (procedure) 12:00:00 AM EDT [facility], PC) Documentation of current 01/04/2018 MED GEN ([facility] medications (procedure) 12:00:00 AM EDT edical, PC) Documentation of current 01/04/2018 MED GEN ([facility] medications (procedure) 12:00:00 AM EDT [facility], PC) Documentation of current 01/04/2018 MED GEN ([facility] (procedure) 12:00:00 AM EDT [facility], PC) Documentation of current 01/04/2018 MED GEN ([facility] (procedure) 12:00:00 AM EDT [facility], PC) Documentation of current 01/04/2018 MED GEN ([facility] (procedure) 12:00:00 AM EDT [facility], PC) OFFICE OUTPATIENT VISIT 01/04/2018 MEDG EN ([facility] 15 MINUTES 12:00:00 AM EDT [facility], PC) Documentation of current 01/04/2018 MED GEN ([facility] (procedure) 12:00:00 AM EDT [facility], PC) Documentation of current 01/04/2018 MED GEN ([facility] (procedure) 12:00:00 AM EDT [facility], PC) Documentation of current 01/04/2018 MED GEN ([facility] 01/04/2018 MED GEN ([facility]procedure[facility] current 01/04/2018 MED GEN ([facility]procedure[facility] current 01/04/2018 MED GEN ([facility]procedure[facility] current 01/04/2018 MED GEN ([facility] VISIT 12/27/2017 MEDG EN ([facility] 10 MINUTES 12:00:00 AM EDT [facility], PC) OFFICE OUTPATIENT VISIT 12/27/2017 MEDG EN ([facility] 10 MINUTES 12:00:00 AM EDT [facility], PC) OFFICE OUTPATIENT VISIT 12/27/2017 MEDG EN ([facility] 10 MINUTES 12:00:00 AM EDT [facility], PC) OFFICE OUTPATIENT VISIT 12/27/2017 MEDG EN ([facility] 10 MINUTES 12:00:00 AM EDT [facility], PC) OFFICE OUTPATIENT VISIT 12/27/2017 MEDG EN ([facility] 10 MINUTES 12:00:00 AM EDT [facility], PC) OFFICE OUTPATIENT VISIT 12/27/2017 MEDG EN ([facility] 10 MINUTES 12:00:00 AM EDT [facility], PC) OFFICE OUTPATIENT VISIT 12/27/2017 MEDG EN ([facility] 10 MINUTES 12:00:00 AM EDT [facility], PC) OFFICE OUTPATIENT VISIT 12/27/2017 MEDG EN ([facility] 10 MINUTES 12:00:00 AM EDT [facility], PC) OFFICE OUTPATIENT VISIT 12/27/2017 MEDG EN ([facility] 10 MINUTES 12:00:00 AM EDT [facility], PC) OFFICE OUTPATIENT VISIT 12/27/2017 MEDG EN ([facility] 10 MINUTES 12:00:00 AM EDT [facility], PC) OFFICE OUTPATIENT VISIT 12/27/2017 MEDG EN ([facility] 10 MINUTES 12:00:00 AM EDT [facility], PC) OFFICE OUTPATIENT VISIT 12/01/2017 MEDG EN ([facility] 15 MINUTES 12:00:00 AM EDT [facility], PC) OFFICE OUTPATIENT VISIT 12/01/2017 MEDG EN ([facility] 15 MINUTES 12:00:00 AM EDT [facility], PC) OFFICE OUTPATIENT VISIT 12/01/2017 MEDG EN ([facility] 15 MINUTES 12:00:00 AM EDT [facility], PC) OFFICE OUTPATIENT VISIT 12/01/2017 MEDG EN ([facility] 15 MINUTES 12:00:00 AM EDT [facility], PC) OFFICE OUTPATIENT VISIT 12/01/2017 MEDG EN ([facility] 15 MINUTES 12:00:00 AM EDT [facility], PC) OFFICE OUTPATIENT VISIT 12/01/2017 MEDG EN ([facility] 15 MINUTES 12:00:00 AM EDT [facility], PC) OFFICE OUTPATIENT VISIT 12/01/2017 MEDG EN ([facility] 15 MINUTES 12:00:00 AM EDT Medical, PC) OFFICE OUTPATIENT VISIT 12/01/2017 MEDG EN ([facility] 15 MINUTES 12:00:00 AM EDT [facility], PC) OFFICE OUTPATIENT VISIT 12/01/2017 MEDG EN ([facility] 15 MINUTES 12:00:00 AM EDT Medical, PC) OFFICE OUTPATIENT VISIT 12/01/2017 MEDG EN ([facility] 15 MINUTES 12:00:00 AM EDT Medical, PC) OFFICE OUTPATIENT VISIT 12/01/2017 MEDG EN ([facility] 15 MINUTES 12:00:00 AM EDT Medical, PC) OFFICE OUTPATIENT VISIT 11/20/2017 MEDG EN ([facility] 25 MINUTES 12:00:00 AM EDT Medical, PC) OFFICE OUTPATIENT VISIT 11/20/2017 MEDG EN ([facility] 25 MINUTES 12:00:00 AM EDT Medical, PC) OFFICE OUTPATIENT VISIT 11/20/2017 MEDG EN ([facility] 25 MINUTES 12:00:00 AM EDT Medical, PC) OFFICE OUTPATIENT VISIT 11/20/2017 MEDG EN ([facility] 25 MINUTES 12:00:00 AM EDT Medical, PC) OFFICE OUTPATIENT VISIT 11/20/2017 MEDG EN ([facility] 25 MINUTES 12:00:00 AM EDT Medical, PC) OFFICE OUTPATIENT VISIT 11/20/2017 MEDG EN ([facility] 25 MINUTES 12:00:00 AM EDT Medical, PC) OFFICE OUTPATIENT VISIT 11/20/2017 MEDG EN ([facility] 25 MINUTES 12:00:00 AM EDT Medical, PC) OFFICE OUTPATIENT VISIT 11/20/2017 MEDG EN ([facility] 25 MINUTES 12:00:00 AM EDT Medical, PC) OFFICE OUTPATIENT VISIT 11/20/2017 MEDG EN ([facility] 25 MINUTES 12:00:00 AM EDT Medical, PC) OFFICE OUTPATIENT VISIT 11/20/2017 MEDG EN ([facility] 25 MINUTES 12:00:00 AM EDT Medical, PC) OFFICE OUTPATIENT VISIT 11/20/2017 MEDG EN ([facility] 25 MINUTES 12:00:00 AM EDT Medical, PC) OFFICE OUTPATIENT VISIT 10/30/2017 MEDG EN ([facility] 15 MINUTES 12:00:00 AM EDT Medical, PC) OFFICE OUTPATIENT VISIT 10/30/2017 MEDG EN ([facility] 15 MINUTES 12:00:00 AM EDT Medical, PC) OFFICE OUTPATIENT VISIT 10/30/2017 MEDG EN ([facility] 15 MINUTES 12:00:00 AM EDT Medical, PC) OFFICE OUTPATIENT VISIT 10/30/2017 MEDG EN ([facility] 15 MINUTES 12:00:00 AM EDT Medical, PC) OFFICE OUTPATIENT VISIT 10/30/2017 MEDG EN ([facility] 15 MINUTES 12:00:00 AM EDT Medical, PC) OFFICE OUTPATIENT VISIT 10/30/2017 MEDG EN ([facility] 15 MINUTES 12:00:00 AM EDT Medical, PC) OFFICE OUTPATIENT VISIT 10/30/2017 MEDG EN ([facility] 15 MINUTES 12:00:00 AM EDT Medical, PC) OFFICE OUTPATIENT VISIT 10/30/2017 MEDG EN ([facility] 15 MINUTES 12:00:00 AM EDT Medical, PC) OFFICE OUTPATIENT VISIT 10/30/2017 MEDG EN ([facility] 15 MINUTES 12:00:00 AM EDT Medical, PC) OFFICE OUTPATIENT VISIT 10/30/2017 MEDG EN ([facility] 15 MINUTES 12:00:00 AM EDT Medical, PC) OFFICE OUTPATIENT VISIT 10/30/2017 MEDG EN ([facility] 15 MINUTES 12:00:00 AM EDT Medical, PC) Documentation of current 10/09/2017 MED GEN ([facility] (procedure) 12:00:00 AM EDT edical, PC) Documentation of current 10/09/2017 MED GEN ([facility] (procedure) 12:00:00 AM EDT M natalie, PC) Documentation of current 10/09/2017 MED GEN ([facility] (procedure) 12:00:00 AM EDT M natalie, PC) Documentation of current 10/09/2017 MED GEN ([facility] (procedure) 12:00:00 AM EDT M natalie, PC) Documentation of current 10/09/2017 MED GEN ([facility] (procedure) 12:00:00 AM EDT natalie, PC) Documentation of current 10/09/2017 MED GEN ([facility] (procedure) 12:00:00 AM EDT M natalie, PC) Documentation of current 10/09/2017 MED GEN ([facility] (procedure) 12:00:00 AM EDT M natalie, PC) Documentation of current 10/09/2017 MED GEN ([facility] (procedure) 12:00:00 AM EDT natalie, PC) Documentation of current 10/09/2017 MED GEN ([facility] (procedure) 12:00:00 AM EDT natalie, PC) Documentation of current 10/09/2017 MED GEN ([facility] (procedure) 12:00:00 AM EDT natalie, PC) Documentation of current 10/09/2017 MED GEN ([facility] (procedure) 12:00:00 AM EDT natalie, PC) Documentation of current 10/09/2017 MED GEN ([facility] (procedure) 12:00:00 AM EDT M natalie, PC) Documentation of current 10/09/2017 MED GEN ([facility] (procedure) 12:00:00 AM EDT M natalie, PC) Documentation of current 10/09/2017 MED GEN ([facility] (procedure) 12:00:00 AM EDT M natalie, PC) Documentation of current 10/09/2017 MED GEN ([facility] (procedure) 12:00:00 AM EDT M natalie, PC) Documentation of current 10/09/2017 MED GEN ([facility] (procedure) 12:00:00 AM EDT natalie, PC) Documentation of current 10/09/2017 MED GEN ([facility] (procedure) 12:00:00 AM EDT M natalie, PC) Documentation of current 10/09/2017 MED GEN ([facility] (procedure) 12:00:00 AM EDT M natalie, PC) Documentation of current 10/09/2017 MED GEN ([facility] (procedure) 12:00:00 AM EDT M dem[facility]coical, PC) Documentation of current 10/09/2017 MED GEN ([facility] (procedure) 12:00:00 AM EDT demarcoical, PC) Documentation of current 10/09/2017 MED GEN ([facility] (procedure) 12:00:00 AM EDT M natalie, PC) Documentation of current 10/09/2017 MED GEN ([facility] (procedure) 12:00:00 AM EDT M natalie, PC) Documentation of current 10/09/2017 MED GEN ([facility] (procedure) 12:00:00 AM EDT natalie, PC) Documentation of current 10/09/2017 MED GEN ([facility] (procedure) 12:00:00 AM EDT natalie, PC) Documentation of current 10/09/2017 MED GEN ([facility] (procedure) 12:00:00 AM EDT natalie, PC) Documentation of current 10/09/2017 MED GEN ([facility] (procedure) 12:00:00 AM EDT natalie, PC) Documentation of current 10/09/2017 MED GEN ([facility] (procedure) 12:00:00 AM EDT M natalie, PC) Documentation of current 10/09/2017 MED GEN ([facility] (procedure) 12:00:00 AM EDT M natalie, PC) Documentation of current 10/09/2017 MED GEN ([facility] (procedure) 12:00:00 AM EDT M natal[facility], PC) Documentation of current 10/09/2017 MED GEN ([facility] (procedure) 12:00:00 AM EDT M nat[facility], PC) Documentation of current 10/09/2017 MED GEN ([facility] (procedure) 12:00:00 AM EDT natalie, PC) Documentation of current 10/09/2017 MED GEN ([facility] (procedure) 12:00:00 AM EDT demarcoical, PC) Documentation of current 10/09/2017 MED GEN ([facility] (procedure) 12:00:00 AM EDT edical, PC) Documentation of current 10/09/2017 MED GEN ([facility] (procedure) 12:00:00 AM EDT edical, PC) Documentation of current 10/09/2017 MED GEN ([facility] (procedure) 12:00:00 AM EDT edical, PC) Documentation of current 10/09/2017 MED GEN ([facility] (procedure) 12:00:00 AM EDT demarcoical, PC) Documentation of current 10/09/2017 MED GEN ([facility] (procedure) 12:00:00 AM EDT edical, PC) Documentation of current 10/09/2017 MED GEN ([facility] (procedure) 12:00:00 AM EDT edical, PC) Documentation of current 10/09/2017 MED GEN ([facility] (procedure) 12:00:00 AM EDT edical, PC) Documentation of current 10/09/2017 MED GEN ([facility] (procedure) 12:00:00 AM EDT demarcoical, PC) Documentation of current 10/09/2017 MED GEN ([facility] (procedure) 12:00:00 AM EDT edical, PC) Documentation of current 10/09/2017 MED GEN ([facility] (procedure) 12:00:00 AM EDT natalie, PC) Documentation of current 10/09/2017 MED GEN ([facility] (procedure) 12:00:00 AM EDT demarcoical, PC) OFFICE OUTPATIENT VISIT 10/09/2017 MEDG EN ([facility] 15 MINUTES 12:00:00 AM EDT Medical, PC) Documentation of current 10/09/2017 MED GEN ([facility] (procedure) 12:00:00 AM EDT demarcoical, PC) Documentation of current 10/09/2017 MED GEN ([facility] (procedure) 12:00:00 AM EDT demarcoical, PC) Documentation of current 10/09/2017 MED GEN ([facility] (procedure) 12:00:00 AM EDT demarcoical, PC) Documentation of current 10/09/2017 MED GEN ([facility] (procedure) 12:00:00 AM EDT edical, PC) Documentation of current 10/09/2017 MED GEN ([facility] (procedure) 12:00:00 AM EDT edical, PC) Documentation of current 10/09/2017 MED GEN ([facility] (procedure) 12:00:00 AM EDT edical, PC) Documentation of current 10/09/2017 MED GEN ([facility] (procedure) 12:00:00 AM EDT demarcoical, PC) Documentation of current 10/09/2017 MED GEN ([facility] (procedure) 12:00:00 AM EDT edical, PC) Documentation of current 10/09/2017 MED GEN ([facility] (procedure) 12:00:00 AM EDT demarcoical, PC) Documentation of current 10/09/2017 MED GEN ([facility] (procedure) 12:00:00 AM EDT edical, PC) Documentation of current 10/09/2017 MED GEN ([facility] (procedure) 12:00:00 AM EDT edical, PC) Documentation of current 10/09/2017 MED GEN ([facility] (procedure) 12:00:00 AM EDT demarcoical, PC) Documentation of current 10/09/2017 MED GEN ([facility] (procedure) 12:00:00 AM EDT natalie, PC) Documentation of current 10/09/2017 MED GEN ([facility] (procedure) 12:00:00 AM EDT demarcoical, PC) Documentation of current 10/09/2017 MED GEN ([facility] (procedure) 12:00:00 AM EDT edical, PC) Documentation of current 10/09/2017 MED GEN ([facility] (procedure) 12:00:00 AM EDT demarcoical, PC) OFFICE OUTPATIENT VISIT 10/09/2017 MEDG EN ([facility] 15 MINUTES 12:00:00 AM EDT Medical, PC) Documentation of current 10/09/2017 MED GEN ([facility] (procedure) 12:00:00 AM EDT Lewis estrada, PC) Documentation of current 10/09/2017 MED GEN ([facility] (procedure) 12:00:00 AM EDT M natalie, PC) Documentation of current 10/09/2017 MED GEN ([facility] (procedure) 12:00:00 AM EDT M natalie, PC) Documentation of current 10/09/2017 MED GEN ([facility] (procedure) 12:00:00 AM EDT natalie, PC) Documentation of current 10/09/2017 MED GEN ([facility] (procedure) 12:00:00 AM EDT natalie, PC) Documentation of current 10/09/2017 MED GEN ([facility] (procedure) 12:00:00 AM EDT M natalie, PC) Documentation of current 10/09/2017 MED GEN ([facility] (procedure) 12:00:00 AM EDT natalie, PC) Documentation of current 10/09/2017 MED GEN ([facility] (procedure) 12:00:00 AM EDT natalie, PC) Documentation of current 10/09/2017 MED GEN ([facility] (procedure) 12:00:00 AM EDT natalie, PC) Documentation of current 10/09/2017 MED GEN ([facility] (procedure) 12:00:00 AM EDT natalie, PC) Documentation of current 10/09/2017 MED GEN ([facility] (procedure) 12:00:00 AM EDT natalie, PC) Documentation of current 10/09/2017 MED GEN ([facility] (procedure) 12:00:00 AM EDT natalie, PC) Documentation of current 10/09/2017 MED GEN ([facility] (procedure) 12:00:00 AM EDT natalie, PC) Documentation of current 10/09/2017 MED GEN ([facility] (procedure) 12:00:00 AM EDT M natalie, PC) Documentation of current 10/09/2017 MED GEN ([facility] (procedure) 12:00:00 AM EDT M natalie, PC) Documentation of current 10/09/2017 MED GEN ([facility] (procedure) 12:00:00 AM EDT natalie, PC) Documentation of current 10/09/2017 MED GEN ([facility] (procedure) 12:00:00 AM EDT M natal[facility], PC) Documentation of current 10/09/2017 MED GEN ([facility] (procedure) 12:00:00 AM EDT M nat[facility], PC) Documentation of current 10/09/2017 MED GEN ([facility] (procedure) 12:00:00 AM EDT natalie, PC) Documentation of current 10/09/2017 MED GEN ([facility] (procedure) 12:00:00 AM EDT natalie, PC) Documentation of current 10/09/2017 MED GEN ([facility] (procedure) 12:00:00 AM EDT M natalie, PC) Documentation of current 10/09/2017 MED GEN ([facility] (procedure) 12:00:00 AM EDT M natalie, PC) Documentation of current 10/09/2017 MED GEN ([facility] (procedure) 12:00:00 AM EDT natalie, PC) Documentation of current 10/09/2017 MED GEN ([facility] (procedure) 12:00:00 AM EDT natalie, PC) Documentation of current 10/09/2017 MED GEN ([facility] (procedure) 12:00:00 AM EDT natalie, PC) Documentation of current 10/09/2017 MED GEN ([facility] (procedure) 12:00:00 AM EDT natalie, PC) Documentation of current 10/09/2017 MED GEN ([facility] (procedure) 12:00:00 AM EDT natalie, PC) Documentation of current 10/09/2017 MED GEN ([facility] (procedure) 12:00:00 AM EDT natalie, PC) Documentation of current 10/09/2017 MED GEN ([facility] (procedure) 12:00:00 AM EDT M natalie, PC) Documentation of current 10/09/2017 MED GEN ([facility] (procedure) 12:00:00 AM EDT M natalie, PC) Documentation of current 10/09/2017 MED GEN ([facility] (procedure) 12:00:00 AM EDT edical, PC) Documentation of current 10/09/2017 MED GEN ([facility] (procedure) 12:00:00 AM EDT natalie, PC) Documentation of current 10/09/2017 MED GEN ([facility] (procedure) 12:00:00 AM EDT edical, PC) Documentation of current 10/09/2017 MED GEN ([facility] (procedure) 12:00:00 AM EDT demarcoical, PC) Documentation of current 10/09/2017 MED GEN ([facility] (procedure) 12:00:00 AM EDT natalie, PC) OFFICE OUTPATIENT VISIT 10/09/2017 MEDG EN ([facility] 15 MINUTES 12:00:00 AM EDT Medical, PC) Documentation of current 10/09/2017 MED GEN ([facility] (procedure) 12:00:00 AM EDT natalie, PC) Documentation of current 10/09/2017 MED GEN ([facility] (procedure) 12:00:00 AM EDT natalie, PC) Documentation of current 10/09/2017 MED GEN ([facility] (procedure) 12:00:00 AM EDT natalie, PC) Documentation of current 10/09/2017 MED GEN ([facility] (procedure) 12:00:00 AM EDT demarcoical, PC) Documentation of current 10/09/2017 MED GEN ([facility] (procedure) 12:00:00 AM EDT demarcoical, PC) Documentation of current 10/09/2017 MED GEN ([facility] (procedure) 12:00:00 AM EDT natalie, PC) Documentation of current 10/09/2017 MED GEN ([facility] (procedure) 12:00:00 AM EDT edical, PC) Documentation of current 10/09/2017 MED GEN ([facility] (procedure) 12:00:00 AM EDT edical, PC) Documentation of current 10/09/2017 MED GEN ([facility] (procedure) 12:00:00 AM EDT edical, PC) Documentation of current 10/09/2017 MED GEN ([facility] (procedure) 12:00:00 AM EDT demarcoical, PC) Documentation of current 10/09/2017 MED GEN ([facility] (procedure) 12:00:00 AM EDT natalie, PC) Documentation of current 10/09/2017 MED GEN ([facility] (procedure) 12:00:00 AM EDT M demarcoical, PC) Documentation of current 10/09/2017 MED GEN ([facility] (procedure) 12:00:00 AM EDT demarcoical, PC) Documentation of current 10/09/2017 MED GEN ([facility] (procedure) 12:00:00 AM EDT demarcoical, PC) Documentation of current 10/09/2017 MED GEN ([facility] (procedure) 12:00:00 AM EDT natalie, PC) Documentation of current 10/09/2017 MED GEN ([facility] (procedure) 12:00:00 AM EDT natalie, PC) Documentation of current 10/09/2017 MED GEN ([facility] (procedure) 12:00:00 AM EDT natalie, PC) Documentation of current 10/09/2017 MED GEN ([facility] (procedure) 12:00:00 AM EDT natalie, PC) Documentation of current 10/09/2017 MED GEN ([facility] (procedure) 12:00:00 AM EDT natalie, PC) Documentation of current 10/09/2017 MED GEN ([facility] (procedure) 12:00:00 AM EDT natalie, PC) Documentation of current 10/09/2017 MED GEN ([facility] (procedure) 12:00:00 AM EDT natalie, PC) Documentation of current 10/09/2017 MED GEN ([facility] medications (procedure) 12:00:00 AM EDT natalie, PC) Documentation of current 10/09/2017 MED GEN ([facility] (procedure) 12:00:00 AM EDT natalie, PC) Documentation of current 10/09/2017 MED GEN ([facility] (procedure) 12:00:00 AM EDT demarcoical, PC) Documentation of current 10/09/2017 MED GEN ([facility] (procedure) 12:00:00 AM EDT natalie, PC) Documentation of current 10/09/2017 MED GEN ([facility] (procedure) 12:00:00 AM EDT natalie, PC) Documentation of current 10/09/2017 MED GEN ([facility] (procedure) 12:00:00 AM EDT M natalie, PC) Documentation of current 10/09/2017 MED GEN ([facility] (procedure) 12:00:00 AM EDT natalie, PC) Documentation of current 10/09/2017 MED GEN ([facility] (procedure) 12:00:00 AM EDT natalie, PC) Documentation of current 10/09/2017 MED GEN ([facility] (procedure) 12:00:00 AM EDT natalie, PC) Documentation of current 10/09/2017 MED GEN ([facility] (procedure) 12:00:00 AM EDT natalie, PC) Documentation of current 10/09/2017 MED GEN ([facility] (procedure) 12:00:00 AM EDT natalie, PC) Documentation of current 10/09/2017 MED GEN ([facility] (procedure) 12:00:00 AM EDT natalie, PC) Documentation of current 10/09/2017 MED GEN ([facility] (procedure) 12:00:00 AM EDT natalie, PC) Documentation of current 10/09/2017 MED GEN ([facility] (procedure) 12:00:00 AM EDT natalie, PC) Documentation of current 10/09/2017 MED GEN ([facility] (procedure) 12:00:00 AM EDT natalie, PC) Documentation of current 10/09/2017 MED GEN ([facility] (procedure) 12:00:00 AM EDT natalie, PC) Documentation of current 10/09/2017 MED GEN ([facility] (procedure) 12:00:00 AM EDT natalie, PC) Documentation of current 10/09/2017 MED GEN ([facility] (procedure) 12:00:00 AM EDT natalie, PC) Documentation of current 10/09/2017 MED GEN ([facility] (procedure) 12:00:00 AM EDT natalie, PC) Documentation of current 10/09/2017 MED GEN ([facility] (procedure) 12:00:00 AM EDT natalie, PC) Documentation of current 10/09/2017 MED GEN ([facility] (procedure) 12:00:00 AM EDT natalie, PC) Documentation of current 10/09/2017 MED GEN ([facility] (procedure) 12:00:00 AM EDT natalie, PC) Documentation of current 10/09/2017 MED GEN ([facility] (procedure) 12:00:00 AM EDT natalie, PC) Documentation of current 10/09/2017 MED GEN ([facility] (procedure) 12:00:00 AM EDT natalie, PC) Documentation of current 10/09/2017 MED GEN ([facility] (procedure) 12:00:00 AM EDT natalie, PC) Documentation of current 10/09/2017 MED GEN ([facility] (procedure) 12:00:00 AM EDT natalie, PC) Documentation of current 10/09/2017 MED GEN ([facility] (procedure) 12:00:00 AM EDT natalie, PC) Documentation of current 10/09/2017 MED GEN ([facility] (procedure) 12:00:00 AM EDT natalie, PC) Documentation of current 10/09/2017 MED GEN ([facility] (procedure) 12:00:00 AM EDT natalie, PC) Documentation of current 10/09/2017 MED GEN ([facility] (procedure) 12:00:00 AM EDT natalie, PC) Documentation of current 10/09/2017 MED GEN ([facility] (procedure) 12:00:00 AM EDT natalie, PC) Documentation of current 10/09/2017 MED GEN ([facility] (procedure) 12:00:00 AM EDT natalie, PC) Documentation of current 10/09/2017 MED GEN ([facility] (procedure) 12:00:00 AM EDT natalie, PC) Documentation of current 10/09/2017 MED GEN ([facility] (procedure) 12:00:00 AM EDT natalie, PC) Documentation of current 10/09/2017 MED GEN ([facility] (procedure) 12:00:00 AM EDT M edical, PC) Documentation of current 10/09/2017 MED GEN ([facility] (procedure) 12:00:00 AM EDT M natalie, PC) Documentation of current 10/09/2017 MED GEN ([facility] (procedure) 12:00:00 AM EDT M natalie, PC) Documentation of current 10/09/2017 MED GEN ([facility] (procedure) 12:00:00 AM EDT natalie, PC) Documentation of current 10/09/2017 MED GEN ([facility] (procedure) 12:00:00 AM EDT natalie, PC) Documentation of current 10/09/2017 MED GEN ([facility] (procedure) 12:00:00 AM EDT M natalie, PC) Documentation of current 10/09/2017 MED GEN ([facility] (procedure) 12:00:00 AM EDT natalie, PC) Documentation of current 10/09/2017 MED GEN ([facility] (procedure) 12:00:00 AM EDT natalie, PC) Documentation of current 10/09/2017 MED GEN ([facility] (procedure) 12:00:00 AM EDT natalie, PC) Documentation of current 10/09/2017 MED GEN ([facility] (procedure) 12:00:00 AM EDT natalie, PC) Documentation of current 10/09/2017 MED GEN ([facility] (procedure) 12:00:00 AM EDT natalie, PC) Documentation of current 10/09/2017 MED GEN ([facility] (procedure) 12:00:00 AM EDT natalie, PC) Documentation of current 10/09/2017 MED GEN ([facility] (procedure) 12:00:00 AM EDT natalie, PC) Documentation of current 10/09/2017 MED GEN ([facility] (procedure) 12:00:00 AM EDT M natalie, PC) Documentation of current 10/09/2017 MED GEN ([facility] (procedure) 12:00:00 AM EDT M natalie, PC) Documentation of current 10/09/2017 MED GEN ([facility] (procedure) 12:00:00 AM EDT Lewis estrada, PC) Documentation of current 10/09/2017 MED GEN ([facility] (procedure) 12:00:00 AM EDT natalie, PC) Documentation of current 10/09/2017 MED GEN ([facility] (procedure) 12:00:00 AM EDT demarcoical, PC) Documentation of current 10/09/2017 MED GEN ([facility] (procedure) 12:00:00 AM EDT natalie, PC) Documentation of current 10/09/2017 MED GEN ([facility] (procedure) 12:00:00 AM EDT natalie, PC) Documentation of current 10/09/2017 MED GEN ([facility] (procedure) 12:00:00 AM EDT natalie, PC) Documentation of current 10/09/2017 MED GEN ([facility] (procedure) 12:00:00 AM EDT natalie, PC) Documentation of current 10/09/2017 MED GEN ([facility] (procedure) 12:00:00 AM EDT natalie, PC) OFFICE OUTPATIENT VISIT 10/09/2017 MEDG EN ([facility] 15 MINUTES 12:00:00 AM EDT Kyle, PC) Documentation of current 10/09/2017 MED GEN ([facility] medications (procedure) 12:00:00 AM EDT natalie, PC) Documentation of current 10/09/2017 MED GEN ([facility] (procedure) 12:00:00 AM EDT natalie, PC) Documentation of current 10/09/2017 MED GEN ([facility] (procedure) 12:00:00 AM EDT natalie, PC) Documentation of current 10/09/2017 MED GEN ([facility] (procedure) 12:00:00 AM EDT natalie, PC) Documentation of current 10/09/2017 MED GEN ([facility] (procedure) 12:00:00 AM EDT edical, PC) Documentation of current 10/09/2017 MED GEN ([facility] (procedure) 12:00:00 AM EDT natalie, PC) Documentation of current 10/09/2017 MED GEN ([facility] (procedure) 12:00:00 AM EDT natalie, PC) Documentation of current 10/09/2017 MED GEN ([facility] (procedure) 12:00:00 AM EDT M natalie, PC) Documentation of current 10/09/2017 MED GEN ([facility] (procedure) 12:00:00 AM EDT M natalie, PC) Documentation of current 10/09/2017 MED GEN ([facility] (procedure) 12:00:00 AM EDT M demarcoical, PC) Documentation of current 10/09/2017 MED GEN ([facility] (procedure) 12:00:00 AM EDT natalie, PC) Documentation of current 10/09/2017 MED GEN ([facility] (procedure) 12:00:00 AM EDT natalie, PC) Documentation of current 10/09/2017 MED GEN ([facility] (procedure) 12:00:00 AM EDT M natalie, PC) Documentation of current 10/09/2017 MED GEN ([facility] (procedure) 12:00:00 AM EDT natalie, PC) Documentation of current 10/09/2017 MED GEN ([facility] (procedure) 12:00:00 AM EDT natalie, PC) Documentation of current 10/09/2017 MED GEN ([facility] (procedure) 12:00:00 AM EDT natalie, PC) Documentation of current 10/09/2017 MED GEN ([facility] (procedure) 12:00:00 AM EDT natalie, PC) Documentation of current 10/09/2017 MED GEN ([facility] (procedure) 12:00:00 AM EDT natalie, PC) Documentation of current 10/09/2017 MED GEN ([facility] (procedure) 12:00:00 AM EDT M natalie, PC) Documentation of current 10/09/2017 MED GEN ([facility] (procedure) 12:00:00 AM EDT M natalie, PC) Documentation of current 10/09/2017 MED GEN ([facility] (procedure) 12:00:00 AM EDT M natalie, PC) Documentation of current 10/09/2017 MED GEN ([facility] (procedure) 12:00:00 AM EDT M natalie, PC) Documentation of current 10/09/2017 MED GEN ([facility] (procedure) 12:00:00 AM EDT natalie, PC) Documentation of current 10/09/2017 MED GEN ([facility] (procedure) 12:00:00 AM EDT M demarcoical, PC) Documentation of current 10/09/2017 MED GEN ([facility] (procedure) 12:00:00 AM EDT demarcoical, PC) Documentation of current 10/09/2017 MED GEN ([facility] (procedure) 12:00:00 AM EDT demarcoical, PC) Documentation of current 10/09/2017 MED GEN ([facility] (procedure) 12:00:00 AM EDT natalie, PC) Documentation of current 10/09/2017 MED GEN ([facility] (procedure) 12:00:00 AM EDT natalie, PC) Documentation of current 10/09/2017 MED GEN ([facility] (procedure) 12:00:00 AM EDT natalie, PC) Documentation of current 10/09/2017 MED GEN ([facility] (procedure) 12:00:00 AM EDT natalie, PC) Documentation of current 10/09/2017 MED GEN ([facility] (procedure) 12:00:00 AM EDT natalie, PC) Documentation of current 10/09/2017 MED GEN ([facility] (procedure) 12:00:00 AM EDT natalie, PC) Documentation of current 10/09/2017 MED GEN ([facility] (procedure) 12:00:00 AM EDT natalie, PC) Documentation of current 10/09/2017 MED GEN ([facility] (procedure) 12:00:00 AM EDT natalie, PC) Documentation of current 10/09/2017 MED GEN ([facility] (procedure) 12:00:00 AM EDT natalie, PC) Documentation of current 10/09/2017 MED GEN ([facility] (procedure) 12:00:00 AM EDT demarcoical, PC) Documentation of current 10/09/2017 MED GEN ([facility] (procedure) 12:00:00 AM EDT natalie, PC) Documentation of current 10/09/2017 MED GEN ([facility] (procedure) 12:00:00 AM EDT edical, PC) Documentation of current 10/09/2017 MED GEN ([facility] (procedure) 12:00:00 AM EDT edical, PC) Documentation of current 10/09/2017 MED GEN ([facility] (procedure) 12:00:00 AM EDT edical, PC) Documentation of current 10/09/2017 MED GEN ([facility] (procedure) 12:00:00 AM EDT edical, PC) Documentation of current 10/09/2017 MED GEN ([facility] medications (procedure) 12:00:00 AM EDT [facility], [facility]) Documentation of current 10/09/2017 MED GEN ([facility]ica's medications (procedure) 12:00:00 AM EDT [facility], [facility]) OFFICE OUTPATIENT VISIT 10/09/2017 MEDG EN ([facility]ica's 15 MINUTES 12:00:00 AM [facility], [facility]) Documentation of current 10/09/2017 MED GEN (Jessica's medications (procedure) 12:00:00 AM EDT [facility], PC) OFFICE OUTPATIENT VISIT 10/09/2017 MEDG EN (Jessica's 15 MINUTES 12:00:00 AM [facility], PC) Documentation of current 10/09/2017 MED GEN (Jessica's medications (procedure) 12:00:00 AM EDT [facility], PC) Documentation of current 10/09/2017 MED GEN (Jessica's medications (procedure) 12:00:00 AM EDT [facility], PC) Documentation of current 10/09/2017 MED GEN (Jessica's medications (procedure) 12:00:00 AM EDT [facility]ical, PC) Documentation of current 10/09/2017 MED GEN (Jessica's medications (procedure) 12:00:00 AM EDT [facility]ical, PC) Documentation of current 10/09/2017 MED GEN (Jessica's medications (procedure) 12:00:00 AM EDT [facility]ical, PC) Documentation of current 10/09/2017 MED GEN (Jessica's medications (procedure) 12:00:00 AM EDT [facility]ical, PC) Documentation of current 10/09/2017 MED GEN ([facility]ica's medications (procedure) 12:00:00 AM EDT [facility]alie, PC) Documentation of current 10/09/2017 MED GEN ([facility]'s medications (procedure) 12:00:00 AM EDT M natalie, PC) Documentation of current 10/09/2017 MED GEN (Jessica's medications (procedure) 12:00:00 AM EDT M natalie, PC) Documentation of current 10/09/2017 MED GEN ([facility]cia[facility] medications (procedure) 12:00:00 AM EDT M natalie, PC) Documentation of current 10/09/2017 MED GEN ([facility]'s medications (procedure) 12:00:00 AM EDT natalie, PC) Documentation of current 10/09/2017 MED GEN ([facility]'s medications (procedure) 12:00:00 AM EDT M natalie, PC) Documentation of current 10/09/2017 MED GEN ([facility]'s medications (procedure) 12:00:00 AM EDT M natalie, PC) Documentation of current 10/09/2017 MED GEN (Jess[facility]'s medications (procedure) 12:00:00 AM EDT natalie, PC) Documentation of current 10/09/2017 MED GEN ([facility]'s medications (procedure) 12:00:00 AM EDT natalie, PC) Documentation of current 10/09/2017 MED GEN (Jess[facility]'s medications (procedure) 12:00:00 AM EDT natalie, PC) Documentation of current 10/09/2017 MED GEN ([facility]'s medications (procedure) 12:00:00 AM EDT natalie, PC) Documentation of current 10/09/2017 MED GEN ([facility]'s medications (procedure) 12:00:00 AM EDT M natalie, PC) Documentation of current 10/09/2017 MED GEN ([facility]'s medications (procedure) 12:00:00 AM EDT natalie, PC) Documentation of current 10/09/2017 MED GEN ([facility]'s medications (procedure) 12:00:00 AM EDT M natalie, PC) Documentation of current 10/09/2017 MED GEN (Jessica's medications (procedure) 12:00:00 AM EDT M natalie, PC) Documentation of current 10/09/2017 MED GEN (Jessica's medications (procedure) 12:00:00 AM EDT M natalie, PC) Documentation of current 10/09/2017 MED GEN ([facility]'s medications (procedure) 12:00:00 AM EDT M natalie, PC) Documentation of current 10/09/2017 MED GEN (Jessica's medications (procedure) 12:00:00 AM EDT M ntaalie, PC) Documentation of current 10/09/2017 MED GEN (Jessica's medications (procedure) 12:00:00 AM EDT M natalie, PC) Documentation of current 10/09/2017 MED GEN ([facility]'s medications (procedure) 12:00:00 AM EDT natalie, PC) Documentation of current 10/09/2017 MED GEN ([facility]'s medications (procedure) 12:00:00 AM EDT M natalie, PC) Documentation of current 10/09/2017 MED GEN (Jessica's medications (procedure) 12:00:00 AM EDT M natalie, PC) Documentation of current 10/09/2017 MED GEN (Jessica's medications (procedure) 12:00:00 AM EDT natalie, PC) Documentation of current 10/09/2017 MED GEN (Jessica's medications (procedure) 12:00:00 AM EDT natalie, PC) Documentation of current 10/09/2017 MED GEN (Jess[facility]'s medications (procedure) 12:00:00 AM EDT natalie, PC) Documentation of current 10/09/2017 MED GEN (Jessica's medications (procedure) 12:00:00 AM EDT natalie, PC) Documentation of current 10/09/2017 MED GEN (Jessica's medications (procedure) 12:00:00 AM EDT M natalie, PC) Documentation of current 10/09/2017 MED GEN (Jessica's medications (procedure) 12:00:00 AM EDT M natalie, PC) Documentation of current 10/09/2017 MED GEN (Jessica's medications (procedure) 12:00:00 AM EDT M natalie, PC) Documentation of current 10/09/2017 MED GEN (Jessica's medications (procedure) 12:00:00 AM EDT M natalie, PC) Documentation of current 10/09/2017 MED GEN (Jessica's medications (procedure) 12:00:00 AM EDT M natalie, PC) Documentation of current 10/09/2017 MED GEN (Jessica's medications (procedure) 12:00:00 AM EDT natalie, PC) Documentation of current 10/09/2017 MED GEN (Jessica's medications (procedure) 12:00:00 AM EDT [facility], PC) Documentation of current 10/09/2017 MED GEN (Jessica's medications (procedure) 12:00:00 AM EDT natalie, PC) Documentation of current 10/09/2017 MED GEN (Jessica's medications (procedure) 12:00:00 AM EDT natalie, PC) Documentation of current 10/09/2017 MED GEN ([facility]'s medications (procedure) 12:00:00 AM EDT natalie, PC) Documentation of current 10/09/2017 MED GEN (Jess[facility]'s medications (procedure) 12:00:00 AM EDT natalie, [facility]) OFFICE OUTPATIENT VISIT 10/09/2017 MEDG EN ([facility]'s 15 MINUTES 12:00:00 AM EDT Kyle, [facility]) Documentation of current 10/09/2017 MED GEN (Jessica's medications (procedure) 12:00:00 AM EDT natalie, CARID[facility]) Documentation of current 10/09/2017 MED GEN (Jessica's medications (procedure) 12:00:00 AM EDT natalie, PC) Documentation of current 10/09/2017 MED GEN (Jessica's medications (procedure) 12:00:00 AM EDT natalie, PC) Documentation of current 10/09/2017 MED GEN (Jessica's medications (procedure) 12:00:00 AM EDT [facility], PC) Documentation of current 10/09/2017 MED GEN (Jessica's medications (procedure) 12:00:00 AM EDT [facility] estr[facility], PC) Documentation of current 10/09/2017 MED GEN (Jessica's medications (procedure) 12:00:00 AM EDT [facility], PC) Documentation of current 10/09/2017 MED GEN (Jessica's medications (procedure) 12:00:00 AM EDT natalie, PC) Documentation of current 10/09/2017 MED GEN (Jessica's medications (procedure) 12:00:00 AM EDT natalie, PC) Documentation of current 10/09/2017 MED GEN (Jessica's medications (procedure) 12:00:00 AM EDT natalie, PC) Documentation of current 10/09/2017 MED GEN (Jess[facility]'s medications (procedure) 12:00:00 AM EDT M natalie, PC) Documentation of current 10/09/2017 MED GEN (Jess[facility]'s medications (procedure) 12:00:00 AM EDT [facility], PC) Documentation of current 10/09/2017 MED GEN ([facility]'s medications (procedure) 12:00:00 AM EDT natalie, PC) Documentation of current 10/09/2017 MED GEN ([facility] medications (procedure) 12:00:00 AM EDT natalie, PC) Documentation of current 10/09/2017 MED GEN ([facility]'s medications (procedure) 12:00:00 AM EDT natalie, PC) Documentation of current 10/09/2017 MED GEN ([facility] medications (procedure) 12:00:00 AM EDT natalie, PC) Documentation of current 10/09/2017 MED GEN (Jess[facility]'s medications (procedure) 12:00:00 AM EDT natalie, PC) Documentation of current 10/09/2017 MED GEN ([facility] medications (procedure) 12:00:00 AM EDT natalie, PC) Documentation of current 10/09/2017 MED GEN (Jess[facility]'s medications (procedure) 12:00:00 AM EDT natalie, PC) Documentation of current 10/09/2017 MED GEN ([facility] medications (procedure) 12:00:00 AM EDT natalie, PC) Documentation of current 10/09/2017 MED GEN ([facility] medications (procedure) 12:00:00 AM EDT natalie, PC) Documentation of current 10/09/2017 MED GEN ([facility] medications (procedure) 12:00:00 AM EDT natalie, PC) Documentation of current 10/09/2017 MED GEN ([facility]'s medications (procedure) 12:00:00 AM EDT natalie, PC) Documentation of current 10/09/2017 MED GEN ([facility]'s medications (procedure) 12:00:00 AM EDT natalie, PC) Documentation of current 10/09/2017 MED GEN (Jessica's medications (procedure) 12:00:00 AM EDT natalie, PC) Documentation of current 10/09/2017 MED GEN (Jessica's medications (procedure) 12:00:00 AM EDT natalie, PC) Documentation of current 10/09/2017 MED GEN (Jessica's medications (procedure) 12:00:00 AM EDT [facility], PC) Documentation of current 10/09/2017 MED GEN (Jessica's medications (procedure) 12:00:00 AM EDT natalie, PC) Documentation of current 10/09/2017 MED GEN (Jess[facility]'s medications (procedure) 12:00:00 AM EDT natalie, PC) Documentation of current 10/09/2017 MED GEN (Jessica's medications (procedure) 12:00:00 AM EDT natalie, PC) Documentation of current 10/09/2017 MED GEN ([facility]'s medications (procedure) 12:00:00 AM EDT natalie, PC) Documentation of current 10/09/2017 MED GEN ([facility]'s medications (procedure) 12:00:00 AM EDT natalie, PC) Documentation of current 10/09/2017 MED GEN (Jessica's medications (procedure) 12:00:00 AM EDT natalie, PC) Documentation of current 10/09/2017 MED GEN (Jessica's medications (procedure) 12:00:00 AM EDT natalie, PC) Documentation of current 10/09/2017 MED GEN (Jessica's medications (procedure) 12:00:00 AM EDT natalie, PC) Documentation of current 10/09/2017 MED GEN (Jessica's medications (procedure) 12:00:00 AM EDT natalie, PC) Documentation of current 10/09/2017 MED GEN ([facility]'s medications (procedure) 12:00:00 AM EDT natalie, PC) Documentation of current 10/09/2017 MED GEN (Jessica's medications (procedure) 12:00:00 AM EDT natalie, PC) Documentation of current 10/09/2017 MED GEN (Jessica's medications (procedure) 12:00:00 AM EDT natalie, PC) Documentation of current 10/09/2017 MED GEN (Jessica's medications (procedure) 12:00:00 AM EDT [facility] estr[facility], PC) Documentation of current 10/09/2017 MED GEN (Jessica's medications (procedure) 12:00:00 AM EDT Lewis estrada, PC) Documentation of current 10/09/2017 MED GEN (Jessica's medications (procedure) 12:00:00 AM EDT natalie, PC) Documentation of current 10/09/2017 MED GEN (Jessica's medications (procedure) 12:00:00 AM EDT Lwe[facility] estr[facility], PC) Documentation of current 10/09/2017 MED GEN (Jessica's medications (procedure) 12:00:00 AM EDT natalie, PC) Documentation of current 10/09/2017 MED GEN (Jessica's medications (procedure) 12:00:00 AM EDT natalie, PC) OFFICE OUTPATIENT VISIT 10/09/2017 MEDG EN ([facility]'s 15 MINUTES 12:00:00 AM EDT [facility], PC) Documentation of current 10/09/2017 MED GEN (Jessica's medications (procedure) 12:00:00 AM EDT natalie, PC) Documentation of current 10/09/2017 MED GEN (Jessica's medications (procedure) 12:00:00 AM EDT natalie, PC) Documentation of current 10/09/2017 MED GEN (Jessica's medications (procedure) 12:00:00 AM EDT natalie, PC) Documentation of current 10/09/2017 MED GEN (Jessica's medications (procedure) 12:00:00 AM EDT natalie, PC) Documentation of current 10/09/2017 MED GEN (Jessica's medications (procedure) 12:00:00 AM EDT natalie, PC) Documentation of current 10/09/2017 MED GEN (Jessica's medications (procedure) 12:00:00 AM EDT natalie, PC) Documentation of current 10/09/2017 MED GEN (Jessica's medications (procedure) 12:00:00 AM EDT natalie, PC) Documentation of current 10/09/2017 MED GEN (Jessica's medications (procedure) 12:00:00 AM EDT natalie, PC) Documentation of current 10/09/2017 MED GEN (Jessica's medications (procedure) 12:00:00 AM EDT natalie, PC) Documentation of current 10/09/2017 MED GEN (Jessica's medications (procedure) 12:00:00 AM EDT M natalie, PC) Documentation of current 10/09/2017 MED GEN (Jessica's medications (procedure) 12:00:00 AM EDT M natalie, PC) Documentation of current 10/09/2017 MED GEN (Jessica's medications (procedure) 12:00:00 AM EDT M natalie, PC) Documentation of current 10/09/2017 MED GEN (Jessica's medications (procedure) 12:00:00 AM EDT natalie, PC) Documentation of current 10/09/2017 MED GEN (Jessica's medications (procedure) 12:00:00 AM EDT M natalie, PC) Documentation of current 10/09/2017 MED GEN (Jessica's medications (procedure) 12:00:00 AM EDT M natalie, PC) Documentation of current 10/09/2017 MED GEN (Jessica's medications (procedure) 12:00:00 AM EDT natalie, PC) Documentation of current 10/09/2017 MED GEN (Jessica's medications (procedure) 12:00:00 AM EDT natalie, PC) Documentation of current 10/09/2017 MED GEN (Jessica's medications (procedure) 12:00:00 AM EDT natalie, PC) Documentation of current 10/09/2017 MED GEN (Jessica's medications (procedure) 12:00:00 AM EDT natalie, PC) Documentation of current 10/09/2017 MED GEN (Jessica's medications (procedure) 12:00:00 AM EDT M natalie, PC) Documentation of current 10/09/2017 MED GEN (Jessica's medications (procedure) 12:00:00 AM EDT natalie, PC) Documentation of current 10/09/2017 MED GEN (Jessica's medications (procedure) 12:00:00 AM EDT M natalie, PC) Documentation of current 10/09/2017 MED GEN (Jessica's medications (procedure) 12:00:00 AM EDT M natalie, PC) Documentation of current 10/09/2017 MED GEN (Jessica's medications (procedure) 12:00:00 AM EDT Lewis estrada, PC) Documentation of current 10/09/2017 MED GEN (Jessica's medications (procedure) 12:00:00 AM EDT [facility]) Documentation of current 10/09/2017 MED GEN (Jessica's medications (procedure) 12:00:00 AM EDT [facility]) Documentation of current 10/09/2017 MED GEN (Jessica's medications (procedure) 12:00:00 AM EDT [facility]) Documentation of current 10/09/2017 MED GEN (Jessica's medications (procedure) 12:00:00 AM EDT [facility]) Documentation of current 10/09/2017 MED GEN (Jessica's medications (procedure) 12:00:00 AM EDT [facility]) Documentation of current 10/09/2017 MED GEN (Jessica's medications (procedure) 12:00:00 AM EDT [facility]) Documentation of current 10/09/2017 MED GEN (Jessica's medications (procedure) 12:00:00 AM EDT [facility]) Documentation of current 10/09/2017 MED GEN (Jessica's medications (procedure) 12:00:00 AM EDT [facility]) Documentation of current 10/09/2017 MED GEN (Jessica's medications (procedure) 12:00:00 AM EDT [facility]) Documentation of current 10/09/2017 MED GEN (Jessica's medications (procedure) 12:00:00 AM EDT [facility]) Documentation of current 10/09/2017 MED GEN ([facility]'s medications (procedure) 12:00:00 AM EDT [facility]) Documentation of current 10/09/2017 MED GEN (Jessica's medications (procedure) 12:00:00 AM EDT [facility]) Documentation of current 10/09/2017 MED GEN (Jessica's medications (procedure) 12:00:00 AM EDT [facility]) Documentation of current 10/09/2017 MED GEN ([facility]ica's medications (procedure) 12:00:00 AM EDT [facility]) Documentation of current 10/09/2017 MED GEN (Jessica's medications (procedure) 12:00:00 AM EDT [facility] PC) Documentation of current 10/09/2017 MED GEN ([facility] medications (procedure) 12:00:00 AM EDT [facility], PC) Documentation of current 10/09/2017 MED GEN ([facility]'s medications (procedure) 12:00:00 AM EDT [facility]ical, PC) Documentation of current 10/09/2017 MED GEN ([facility] medications (procedure) 12:00:00 AM EDT [facility], PC) Documentation of current 10/09/2017 MED GEN ([facility]ica's medications (procedure) 12:00:00 AM EDT [facility], PC) OFFICE OUTPATIENT VISIT 10/09/2017 MEDG EN ([facility] 15 MINUTES 12:00:00 AM EDT [facility], [facility]) Documentation of current 10/09/2017 MED GEN (Jessica's medications (procedure) 12:00:00 AM EDT natalie, PC) Documentation of current 10/09/2017 MED GEN (Jessica's medications (procedure) 12:00:00 AM EDT natalie, PC) Documentation of current 10/09/2017 MED GEN ([facility]'s medications (procedure) 12:00:00 AM EDT [facility], PC) Documentation of current 10/09/2017 MED GEN ([facility]'s medications (procedure) 12:00:00 AM EDT [facility], PC) Documentation of current 10/09/2017 MED GEN ([facility]'s medications (procedure) 12:00:00 AM EDT edical, PC) Documentation of current 10/09/2017 MED GEN ([facility] medications (procedure) 12:00:00 AM EDT [facility], PC) Documentation of current 10/09/2017 MED GEN ([facility] medications (procedure) 12:00:00 AM EDT [facility], PC) Documentation of current 10/09/2017 MED GEN ([facility]'s medications (procedure) 12:00:00 AM EDT edical, PC) Documentation of current 10/09/2017 MED GEN ([facility]'s medications (procedure) 12:00:00 AM EDT edical, PC) Documentation of current 10/09/2017 MED GEN ([facility] medications (procedure) 12:00:00 AM EDT [facility], PC) Documentation of current 10/09/2017 MED GEN (Jessica's medications (procedure) 12:00:00 AM EDT natalie, PC) Documentation of current 10/09/2017 MED GEN ([facility]'s medications (procedure) 12:00:00 AM EDT M edical, PC) Documentation of current 10/09/2017 MED GEN ([facility]'s medications (procedure) 12:00:00 AM EDT [facility], PC) Documentation of current 10/09/2017 MED GEN ([facility] medications (procedure) 12:00:00 AM EDT natalie, PC) Documentation of current 10/09/2017 MED GEN ([facility]'s medications (procedure) 12:00:00 AM EDT natalie, PC) Documentation of current 10/09/2017 MED GEN (Jess[facility]'s medications (procedure) 12:00:00 AM EDT natalie, PC) Documentation of current 10/09/2017 MED GEN ([facility] medications (procedure) 12:00:00 AM EDT natalie, PC) Documentation of current 10/09/2017 MED GEN ([facility]'s medications (procedure) 12:00:00 AM EDT natalie, PC) Documentation of current 10/09/2017 MED GEN ([facility] medications (procedure) 12:00:00 AM EDT natalie, PC) Documentation of current 10/09/2017 MED GEN ([facility] medications (procedure) 12:00:00 AM EDT natalie, PC) Documentation of current 10/09/2017 MED GEN ([facility] medications (procedure) 12:00:00 AM EDT natalie, PC) Documentation of current 10/09/2017 MED GEN ([facility] medications (procedure) 12:00:00 AM EDT natalie, PC) Documentation of current 10/09/2017 MED GEN ([facility] medications (procedure) 12:00:00 AM EDT natalie, PC) Documentation of current 10/09/2017 MED GEN ([facility] medications (procedure) 12:00:00 AM EDT [facility], PC) Documentation of current 10/09/2017 MED GEN ([facility] medications (procedure) 12:00:00 AM EDT natalie, PC) Documentation of current 10/09/2017 MED GEN ([facility] medications (procedure) 12:00:00 AM EDT natalie, PC) Documentation of current 10/09/2017 MED GEN ([facility] medications (procedure) 12:00:00 AM EDT natalie, PC) Documentation of current 10/09/2017 MED GEN ([facility] medications (procedure) 12:00:00 AM EDT [facility], PC) Documentation of current 10/09/2017 MED GEN ([facility] medications (procedure) 12:00:00 AM EDT natalie, PC) Documentation of current 10/09/2017 MED GEN ([facility] medications (procedure) 12:00:00 AM EDT natalie, PC) Documentation of current 10/09/2017 MED GEN ([facility] medications (procedure) 12:00:00 AM EDT natalie, PC) Documentation of current 10/09/2017 MED GEN ([facility] medications (procedure) 12:00:00 AM EDT natalie, PC) Documentation of current 10/09/2017 MED GEN ([facility] medications (procedure) 12:00:00 AM EDT natalie, PC) Documentation of current 10/09/2017 MED GEN ([facility] medications (procedure) 12:00:00 AM EDT natalie, PC) Documentation of current 10/09/2017 MED GEN ([facility] medications (procedure) 12:00:00 AM EDT natalie, PC) Documentation of current 10/09/2017 MED GEN ([facility] medications (procedure) 12:00:00 AM EDT natalie, PC) Documentation of current 10/09/2017 MED GEN ([facility] medications (procedure) 12:00:00 AM EDT natalie, PC) Documentation of current 10/09/2017 MED GEN ([facility] medications (procedure) 12:00:00 AM EDT natalie, PC) Documentation of current 10/09/2017 MED GEN ([facility] medications (procedure) 12:00:00 AM EDT natalie, PC) Documentation of current 10/09/2017 MED GEN ([facility] medications (procedure) 12:00:00 AM EDT natalie, PC) Documentation of current 10/09/2017 MED GEN ([facility] medications (procedure) 12:00:00 AM EDT [facility], PC) Documentation of current 10/09/2017 MED GEN ([facility] medications (procedure) 12:00:00 AM EDT [facility], PC) Documentation of current 10/09/2017 MED GEN ([facility] medications (procedure) 12:00:00 AM EDT n[facility]alie, PC) OFFICE OUTPATIENT VISIT 10/09/2017 MEDG EN ([facility] 15 MINUTES 12:00:00 AM EDT [facility], PC) Documentation of current 10/09/2017 MED GEN ([facility] medications (procedure) 12:00:00 AM EDT natalie, PC) Documentation of current 10/09/2017 MED GEN ([facility] medications (procedure) 12:00:00 AM EDT natalie, PC) Documentation of current 10/09/2017 MED GEN ([facility] medications (procedure) 12:00:00 AM EDT natalie, PC) Documentation of current 10/09/2017 MED GEN ([facility] medications (procedure) 12:00:00 AM EDT natalie, PC) Documentation of current 10/09/2017 MED GEN ([facility] medications (procedure) 12:00:00 AM EDT natalie, PC) Documentation of current 10/09/2017 MED GEN ([facility] medications (procedure) 12:00:00 AM EDT natalie, PC) Documentation of current 10/09/2017 MED GEN ([facility] medications (procedure) 12:00:00 AM EDT natalie, PC) Documentation of current 10/09/2017 MED GEN ([facility] medications (procedure) 12:00:00 AM EDT natalie, PC) Documentation of current 10/09/2017 MED GEN ([facility] medications (procedure) 12:00:00 AM EDT natalie, PC) Documentation of current 10/09/2017 MED GEN ([facility] medications (procedure) 12:00:00 AM EDT natalie, PC) Documentation of current 10/09/2017 MED GEN ([facility] medications (procedure) 12:00:00 AM EDT natalie, PC) Documentation of current 10/09/2017 MED GEN ([facility] medications (procedure) 12:00:00 AM EDT natalie, PC) Documentation of current 10/09/2017 MED GEN ([facility] medications (procedure) 12:00:00 AM EDT M natalie, PC) Documentation of current 10/09/2017 MED GEN ([facility] medications (procedure) 12:00:00 AM EDT M natalie, PC) Documentation of current 10/09/2017 MED GEN ([facility] medications (procedure) 12:00:00 AM EDT M natalie, PC) Documentation of current 10/09/2017 MED GEN ([facility] medications (procedure) 12:00:00 AM EDT natalie, PC) Documentation of current 10/09/2017 MED GEN ([facility] medications (procedure) 12:00:00 AM EDT M natalie, PC) Documentation of current 10/09/2017 MED GEN ([facility] medications (procedure) 12:00:00 AM EDT M natalie, PC) Documentation of current 10/09/2017 MED GEN ([facility] medications (procedure) 12:00:00 AM EDT natalie, PC) Documentation of current 10/09/2017 MED GEN ([facility] medications (procedure) 12:00:00 AM EDT natalie, PC) Documentation of current 10/09/2017 MED GEN ([facility] medications (procedure) 12:00:00 AM EDT natalie, PC) Documentation of current 10/09/2017 MED GEN ([facility] medications (procedure) 12:00:00 AM EDT natalie, PC) Documentation of current 10/09/2017 MED GEN ([facility] medications (procedure) 12:00:00 AM EDT M natalie, PC) Documentation of current 10/09/2017 MED GEN ([facility] medications (procedure) 12:00:00 AM EDT M natalie, PC) Documentation of current 10/09/2017 MED GEN ([facility] medications (procedure) 12:00:00 AM EDT M natalie, PC) Documentation of current 10/09/2017 MED GEN ([facility] medications (procedure) 12:00:00 AM EDT M natalie, PC) Documentation of current 10/09/2017 MED GEN ([facility] medications (procedure) 12:00:00 AM EDT natalie, PC) Documentation of current 10/09/2017 MED GEN ([facility] medications (procedure) 12:00:00 AM EDT M natalie, PC) Documentation of current 10/09/2017 MED GEN ([facility] medications (procedure) 12:00:00 AM EDT M natalie, PC) Documentation of current 10/09/2017 MED GEN ([facility] medications (procedure) 12:00:00 AM EDT M [facility], PC) Documentation of current 10/09/2017 MED GEN ([facility] medications (procedure) 12:00:00 AM EDT [facility], PC) Documentation of current 10/09/2017 MED GEN ([facility] medications (procedure) 12:00:00 AM EDT M natalie, PC) Documentation of current 10/09/2017 MED GEN ([facility] medications (procedure) 12:00:00 AM EDT M natalie, PC) Documentation of current 10/09/2017 MED GEN ([facility] medications (procedure) 12:00:00 AM EDT natalie, PC) Documentation of current 10/09/2017 MED GEN ([facility] medications (procedure) 12:00:00 AM EDT natalie, PC) Documentation of current 10/09/2017 MED GEN ([facility] medications (procedure) 12:00:00 AM EDT natalie, PC) Documentation of current 10/09/2017 MED GEN ([facility] medications (procedure) 12:00:00 AM EDT natalie, PC) Documentation of current 10/09/2017 MED GEN ([facility] medications (procedure) 12:00:00 AM EDT M natalie, PC) Documentation of current 10/09/2017 MED GEN ([facility] (procedure) 12:00:00 AM EDT [facility], [facility]) Documentation of current 10/09/2017 MED GEN ([facility] medications (procedure) 12:00:00 AM EDT [facility]) Documentation of current 10/09/2017 MED GEN ([facility] medications (procedure) 12:00:00 AM EDT [facility], [facility]) Documentation of current 10/09/2017 MED GEN ([facility] (procedure) 12:00:00 AM EDT [facility], PC) Documentation of current 10/09/2017 MED GEN ([facility] medications (procedure) 12:00:00 AM EDT M [facility], PC) OFFICE OUTPATIENT VISIT 10/09/2017 MEDG EN ([facility] 15 MINUTES 12:00:00 AM EDT Medical, PC) OFFICE OUTPATIENT VISIT 09/19/2017 MEDG EN ([facility] 25 MINUTES 12:00:00 AM EDT Medical, PC) OFFICE OUTPATIENT VISIT 09/19/2017 MEDG EN ([facility] 25 MINUTES 12:00:00 AM EDT Medical, PC) OFFICE OUTPATIENT VISIT 09/19/2017 MEDG EN ([facility] 25 MINUTES 12:00:00 AM EDT Medical, PC) OFFICE OUTPATIENT VISIT 09/19/2017 MEDG EN ([facility] 25 MINUTES 12:00:00 AM EDT Medical, PC) OFFICE OUTPATIENT VISIT 09/19/2017 MEDG EN ([facility] 25 MINUTES 12:00:00 AM EDT Medical, PC) OFFICE OUTPATIENT VISIT 09/19/2017 MEDG EN ([facility] 25 MINUTES 12:00:00 AM EDT Medical, PC) OFFICE OUTPATIENT VISIT 09/19/2017 MEDG EN ([facility] 25 MINUTES 12:00:00 AM EDT Medical, PC) OFFICE OUTPATIENT VISIT 09/19/2017 MEDG EN ([facility] 25 MINUTES 12:00:00 AM EDT Medical, PC) OFFICE OUTPATIENT VISIT 09/19/2017 MEDG EN ([facility] 25 MINUTES 12:00:00 AM EDT Medical, PC) OFFICE OUTPATIENT VISIT 09/19/2017 MEDG EN ([facility] 25 MINUTES 12:00:00 AM EDT Medical, PC) OFFICE OUTPATIENT VISIT 09/19/2017 MEDG EN ([facility] 25 MINUTES 12:00:00 AM EDT Medical, PC) OFFICE OUTPATIENT VISIT 09/04/2017 MEDG EN ([facility] 15 MINUTES 12:00:00 AM EDT Medical, PC) OFFICE OUTPATIENT VISIT 09/04/2017 MEDG EN ([facility] 15 MINUTES 12:00:00 AM EDT Medical, PC) OFFICE OUTPATIENT VISIT 09/04/2017 MEDG EN ([facility] 15 MINUTES 12:00:00 AM EDT Medical, PC) OFFICE OUTPATIENT VISIT 09/04/2017 MEDG EN ([facility] 15 MINUTES 12:00:00 AM EDT Medical, PC) OFFICE OUTPATIENT VISIT 09/04/2017 MEDG EN ([facility] 15 MINUTES 12:00:00 AM EDT Medical, ) OFFICE OUTPATIENT VISIT 09/04/2017 MEDG EN ([facility] 15 MINUTES 12:00:00 AM EDT Medical, ) OFFICE OUTPATIENT VISIT 09/04/2017 MEDG EN ([facility] 15 MINUTES 12:00:00 AM EDT Medical, ) OFFICE OUTPATIENT VISIT 09/04/2017 MEDG EN ([facility] 15 MINUTES 12:00:00 AM EDT Medical, ) OFFICE OUTPATIENT VISIT 09/04/2017 MEDG EN ([facility] 15 MINUTES 12:00:00 AM EDT Medical, ) OFFICE OUTPATIENT VISIT 09/04/2017 MEDG EN ([facility] 15 MINUTES 12:00:00 AM EDT Medical, ) OFFICE OUTPATIENT VISIT 09/04/2017 MEDG EN ([facility] 15 MINUTES 12:00:00 AM EDT Medical, ) OFFICE OUTPATIENT VISIT 08/28/2017 MEDG EN ([facility] 15 MINUTES 12:00:00 AM EDT Medical, ) GLUC BLD GLUC MNTR DEV 08/28/2017 MEDGE N ([facility] CLEARED FDA SPEC HOME USE 12:00:00 AM EDT Medical, PC) COLLECTION CAPILLARY 08/28/2017 MEDGEN ([facility] BLOOD SPECIMEN 12:00:00 AM EDT Medical, P C) OFFICE OUTPATIENT VISIT 08/28/2017 MEDG EN ([facility] 15 MINUTES 12:00:00 AM EDT Medical, PC) GLUC BLD GLUC MNTR DEV 08/28/2017 MEDGE N ([facility] CLEARED FDA SPEC HOME USE 12:00:00 AM EDT Medical, PC) COLLECTION CAPILLARY 08/28/2017 MEDGEN ([facility] BLOOD SPECIMEN 12:00:00 AM EDT Medical, P C) OFFICE OUTPATIENT VISIT 08/28/2017 MEDG EN ([facility] 15 MINUTES 12:00:00 AM EDT Medical, PC) GLUC BLD GLUC MNTR DEV 08/28/2017 MEDGE N ([facility] CLEARED FDA SPEC HOME USE 12:00:00 AM EDT Medical, PC) COLLECTION CAPILLARY 08/28/2017 MEDGEN ([facility] BLOOD SPECIMEN 12:00:00 AM EDT Medical, P C) OFFICE OUTPATIENT VISIT 08/28/2017 MEDG EN ([facility] 15 MINUTES 12:00:00 AM EDT Medical, PC) GLUC BLD GLUC MNTR DEV 08/28/2017 MEDGE N ([facility] CLEARED FDA SPEC HOME USE 12:00:00 AM EDT Medical, PC) COLLECTION CAPILLARY 08/28/2017 MEDGEN ([facility] BLOOD SPECIMEN 12:00:00 AM EDT Medical, P C) OFFICE OUTPATIENT VISIT 08/28/2017 MEDG EN ([facility] 15 MINUTES 12:00:00 AM EDT Medical, PC) GLUC BLD GLUC MNTR DEV 08/28/2017 MEDGE N ([facility] CLEARED FDA SPEC HOME USE 12:00:00 AM EDT Medical, PC) COLLECTION CAPILLARY 08/28/2017 MEDGEN ([facility] BLOOD SPECIMEN 12:00:00 AM EDT Medical, P C) OFFICE OUTPATIENT VISIT 08/28/2017 MEDG EN ([facility] 15 MINUTES 12:00:00 AM EDT Medical, PC) GLUC BLD GLUC MNTR DEV 08/28/2017 MEDGE N ([facility] CLEARED FDA SPEC HOME USE 12:00:00 AM EDT Medical, PC) COLLECTION CAPILLARY 08/28/2017 MEDGEN ([facility] BLOOD SPECIMEN 12:00:00 AM EDT Medical, P C) OFFICE OUTPATIENT VISIT 08/28/2017 MEDG EN ([facility] 15 MINUTES 12:00:00 AM EDT Medical, PC) GLUC BLD GLUC MNTR DEV 08/28/2017 MEDGE N ([facility] CLEARED FDA SPEC HOME USE 12:00:00 AM EDT Medical, PC) COLLECTION CAPILLARY 08/28/2017 MEDGEN ([facility] BLOOD SPECIMEN 12:00:00 AM EDT Medical, P C) OFFICE OUTPATIENT VISIT 08/28/2017 MEDG EN ([facility] 15 MINUTES 12:00:00 AM EDT Medical, PC) GLUC BLD GLUC MNTR DEV 08/28/2017 MEDGE N ([facility] CLEARED FDA SPEC HOME USE 12:00:00 AM EDT Medical, PC) COLLECTION CAPILLARY 08/28/2017 MEDGEN ([facility] BLOOD SPECIMEN 12:00:00 AM EDT Medical, P C) OFFICE OUTPATIENT VISIT 08/28/2017 MEDG EN ([facility] 15 MINUTES 12:00:00 AM EDT Medical, PC) GLUC BLD GLUC MNTR DEV 08/28/2017 MEDGE N ([facility] CLEARED FDA SPEC HOME USE 12:00:00 AM EDT Medical, PC) COLLECTION CAPILLARY 08/28/2017 MEDGEN ([facility] BLOOD SPECIMEN 12:00:00 AM EDT Medical, P C) OFFICE OUTPATIENT VISIT 08/28/2017 MEDG EN ([facility] 15 MINUTES 12:00:00 AM EDT Medical, PC) GLUC BLD GLUC MNTR DEV 08/28/2017 MEDGE N ([facility] CLEARED FDA SPEC HOME USE 12:00:00 AM EDT Medical, PC) COLLECTION CAPILLARY 08/28/2017 MEDGEN ([facility] BLOOD SPECIMEN 12:00:00 AM EDT Medical, P C) OFFICE OUTPATIENT VISIT 08/28/2017 MEDG EN ([facility] 15 MINUTES 12:00:00 AM EDT Medical, PC) GLUC BLD GLUC MNTR DEV 08/28/2017 MEDGE N ([facility] CLEARED FDA SPEC HOME USE 12:00:00 AM EDT Medical, PC) COLLECTION CAPILLARY 08/28/2017 MEDGEN ([facility] BLOOD SPECIMEN 12:00:00 AM EDT Medical, P C) Documentation of current 07/31/2017 MED GEN ([facility] (procedure) 12:00:00 AM EDT [facility]) Documentation of current 07/31/2017 MED GEN ([facility] (procedure) 12:00:00 AM EDT [facility]) Documentation of current 07/31/2017 MED GEN ([facility] (procedure) 12:00:00 AM EDT [facility]) Documentation of current 07/31/2017 MED GEN ([facility] (procedure) 12:00:00 AM EDT [facility]) Documentation of current 07/31/2017 MED GEN ([facility] (procedure) 12:00:00 AM EDT [facility]) Documentation of current 07/31/2017 MED GEN ([facility] (procedure) 12:00:00 AM EDT [facility]) Documentation of current 07/31/2017 MED GEN ([facility] (procedure) 12:00:00 AM EDT [facility]) Documentation of current 07/31/2017 MED GEN ([facility] (procedure) 12:00:00 AM EDT edical, PC) Documentation of current 07/31/2017 MED GEN ([facility] medications (procedure) 12:00:00 AM EDT edical, ) Documentation of current 07/31/2017 MED GEN ([facility] (procedure) 12:00:00 AM EDT edical, PC) Documentation of current 07/31/2017 MED GEN ([facility] (procedure) 12:00:00 AM EDT edical, ) Documentation of current 07/31/2017 MED GEN ([facility] (procedure) 12:00:00 AM EDT edical, PC) Documentation of current 07/31/2017 MED GEN ([facility] (procedure) 12:00:00 AM EDT edical, PC) Documentation of current 07/31/2017 MED GEN ([facility] (procedure) 12:00:00 AM EDT edical, PC) Documentation of current 07/31/2017 MED GEN ([facility] (procedure) 12:00:00 AM EDT edical, ) Documentation of current 07/31/2017 MED GEN ([facility] (procedure) 12:00:00 AM EDT edical, PC) Documentation of current 07/31/2017 MED GEN ([facility] medications (procedure) 12:00:00 AM EDT edical, ) Documentation of current 07/31/2017 MED GEN ([facility] medications (procedure) 12:00:00 AM EDT [facility], ) OFFICE OUTPATIENT VISIT 07/31/2017 MEDG EN ([facility] 15 MINUTES 12:00:00 AM EDT Medical, PC) GLUC BLD GLUC MNTR DEV 07/31/2017 MEDGE N ([facility] CLEARED FDA SPEC HOME USE 12:00:00 AM EDT Medical, PC) COLLECTION CAPILLARY 07/31/2017 MEDGEN ([facility] BLOOD SPECIMEN 12:00:00 AM ED Medical, P C) Documentation of current 07/31/2017 MED GEN ([facility] medications (procedure) 12:00:00 AM EDT edical, ) Documentation of current 07/31/2017 MED GEN ([facility] (procedure) 12:00:00 AM EDT [facility], PC) Documentation of current 07/31/2017 MED GEN ([facility] medications (procedure) 12:00:00 AM EDT M edical, PC) Documentation of current 07/31/2017 MED GEN ([facility] medications (procedure) 12:00:00 AM EDT [facility], PC) Documentation of current 07/31/2017 MED GEN ([facility] (procedure) 12:00:00 AM EDT edical, PC) Documentation of current 07/31/2017 MED GEN ([facility] (procedure) 12:00:00 AM EDT edical, PC) Documentation of current 07/31/2017 MED GEN ([facility] medications (procedure) 12:00:00 AM EDT edical, PC) Documentation of current 07/31/2017 MED GEN ([facility] medications (procedure) 12:00:00 AM EDT [facility], PC) Documentation of current 07/31/2017 MED GEN ([facility] medications (procedure) 12:00:00 AM EDT [facility], PC) Documentation of current 07/31/2017 MED GEN ([facility] (procedure) 12:00:00 AM EDT [facility], PC) Documentation of current 07/31/2017 MED GEN ([facility] medications (procedure) 12:00:00 AM EDT [facility], PC) Documentation of current 07/31/2017 MED GEN ([facility] medications (procedure) 12:00:00 AM EDT [facility], PC) Documentation of current 07/31/2017 MED GEN ([facility] medications (procedure) 12:00:00 AM EDT edical, PC) Documentation of current 07/31/2017 MED GEN ([facility] medications (procedure) 12:00:00 AM EDT edical, PC) Documentation of current 07/31/2017 MED GEN ([facility] medications (procedure) 12:00:00 AM EDT M edical, PC) Documentation of current 07/31/2017 MED GEN ([facility] medications (procedure) 12:00:00 AM EDT [facility], PC) Documentation of current 07/31/2017 MED GEN ([facility] medications (procedure) 12:00:00 AM EDT [facility], PC) Documentation of current 07/31/2017 MED GEN ([facility] medications (procedure) 12:00:00 AM EDT [facility], PC) OFFICE OUTPATIENT VISIT 07/31/2017 MEDG EN ([facility] 15 MINUTES 12:00:00 AM EDT Medical, PC) GLUC BLD GLUC MNTR DEV 07/31/2017 MEDGE N ([facility] CLEARED FDA SPEC HOME USE 12:00:00 AM EDT Medical, PC) COLLECTION CAPILLARY 07/31/2017 MEDGEN ([facility] BLOOD SPECIMEN 12:00:00 AM EDT Medical, P C) Documentation of current 07/31/2017 MED GEN ([facility] medications (procedure) 12:00:00 AM EDT [facility]al[facility], PC) Documentation of current 07/31/2017 MED GEN ([facility] medications (procedure) 12:00:00 AM EDT [facility], PC) Documentation of current 07/31/2017 MED GEN ([facility] medications (procedure) 12:00:00 AM EDT [facility], PC) Documentation of current 07/31/2017 MED GEN ([facility] medications (procedure) 12:00:00 AM EDT [facility], PC) Documentation of current 07/31/2017 MED GEN ([facility] medications (procedure) 12:00:00 AM EDT [facility], PC) Documentation of current 07/31/2017 MED GEN ([facility] medications (procedure) 12:00:00 AM EDT [facility], PC) Documentation of current 07/31/2017 MED GEN ([facility] medications (procedure) 12:00:00 AM EDT [facility], PC) Documentation of current 07/31/2017 MED GEN ([facility] medications (procedure) 12:00:00 AM EDT [facility], PC) Documentation of current 07/31/2017 MED GEN ([facility] medications (procedure) 12:00:00 AM EDT [facility], PC) Documentation of current 07/31/2017 MED GEN ([facility] medications (procedure) 12:00:00 AM EDT [facility], PC) Documentation of current 07/31/2017 MED GEN ([facility] medications (procedure) 12:00:00 AM EDT [facility], ) Documentation of current 07/31/2017 MED GEN ([facility] medications (procedure) 12:00:00 AM EDT [facility], ) Documentation of current 07/31/2017 MED GEN ([facility] medications (procedure) 12:00:00 AM EDT [facility], ) Documentation of current 07/31/2017 MED GEN ([facility] medications (procedure) 12:00:00 AM EDT [facility], ) Documentation of current 07/31/2017 MED GEN ([facility] medications (procedure) 12:00:00 AM EDT [facility], ) Documentation of current 07/31/2017 MED GEN ([facility] medications (procedure) 12:00:00 AM EDT [facility], ) Documentation of current 07/31/2017 MED GEN ([facility] medications (procedure) 12:00:00 AM EDT [facility], ) Documentation of current 07/31/2017 MED GEN ([facility] medications (procedure) 12:00:00 AM EDT [facility], ) OFFICE OUTPATIENT VISIT 07/31/2017 MEDG EN ([facility] 15 MINUTES 12:00:00 AM EDT [facility], ) GLUC BLD GLUC MNTR DEV 07/31/2017 MEDGE N ([facility] CLEARED FDA SPEC HOME USE 12:00:00 AM [facility], ) COLLECTION CAPILLARY 07/31/2017 MEDGEN ([facility] BLOOD SPECIMEN 12:00:00 AM EDT Medical, P C) Documentation of current 07/31/2017 MED GEN ([facility] medications (procedure) 12:00:00 AM EDT [facility], ) OFFICE OUTPATIENT VISIT 07/31/2017 MEDG EN ([facility] 15 MINUTES 12:00:00 AM EDT Medical, PC) GLUC BLD GLUC MNTR DEV 07/31/2017 MEDGE N ([facility] CLEARED FDA SPEC HOME USE 12:00:00 AM EDT Medical, PC) COLLECTION CAPILLARY 07/31/2017 MEDGEN ([facility] BLOOD SPECIMEN 12:00:00 AM EDT Medical, P C) Documentation of current 07/31/2017 MED GEN ([facility] medications (procedure) 12:00:00 AM EDT [facility], PC) Documentation of current 07/31/2017 MED GEN ([facility] medications (procedure) 12:00:00 AM EDT M natalie, PC) Documentation of current 07/31/2017 MED GEN ([facility] medications (procedure) 12:00:00 AM EDT M [facility]alie, PC) Documentation of current 07/31/2017 MED GEN ([facility] medications (procedure) 12:00:00 AM EDT [facility]alie, PC) Documentation of current 07/31/2017 MED GEN ([facility] medications (procedure) 12:00:00 AM EDT [facility]alie, PC) Documentation of current 07/31/2017 MED GEN ([facility] medications (procedure) 12:00:00 AM EDT M [facility]alie, PC) Documentation of current 07/31/2017 MED GEN ([facility] medications (procedure) 12:00:00 AM EDT M [facility]alie, PC) Documentation of current 07/31/2017 MED GEN ([facility] medications (procedure) 12:00:00 AM EDT [facility]alie, PC) Documentation of current 07/31/2017 MED GEN ([facility] medications (procedure) 12:00:00 AM EDT [facility]alie, PC) Documentation of current 07/31/2017 MED GEN ([facility] medications (procedure) 12:00:00 AM EDT [facility]alie, PC) Documentation of current 07/31/2017 MED GEN ([facility] medications (procedure) 12:00:00 AM EDT [facility]alie, PC) Documentation of current 07/31/2017 MED GEN ([facility] medications (procedure) 12:00:00 AM EDT [facility]alie, PC) Documentation of current 07/31/2017 MED GEN ([facility] medications (procedure) 12:00:00 AM EDT [facility]alie, PC) Documentation of current 07/31/2017 MED GEN ([facility] medications (procedure) 12:00:00 AM EDT [facility]alie, PC) Documentation of current 07/31/2017 MED GEN ([facility] medications (procedure) 12:00:00 AM EDT M [facility], PC) Documentation of current 07/31/2017 MED GEN ([facility] medications (procedure) 12:00:00 AM EDT [facility]alie, PC) Documentation of current 07/31/2017 MED GEN ([facility] medications (procedure) 12:00:00 AM EDT [facility]alie, PC) Documentation of current 07/31/2017 MED GEN ([facility] medications (procedure) 12:00:00 AM EDT M [facility]al[facility], PC) Documentation of current 07/31/2017 MED GEN ([facility] medications (procedure) 12:00:00 AM EDT natalie, PC) Documentation of current 07/31/2017 MED GEN ([facility] medications (procedure) 12:00:00 AM EDT natalie, PC) Documentation of current 07/31/2017 MED GEN ([facility] medications (procedure) 12:00:00 AM EDT natalie, PC) Documentation of current 07/31/2017 MED GEN ([facility] medications (procedure) 12:00:00 AM EDT M natalie, PC) Documentation of current 07/31/2017 MED GEN ([facility] medications (procedure) 12:00:00 AM EDT natalie, PC) Documentation of current 07/31/2017 MED GEN ([facility] medications (procedure) 12:00:00 AM EDT natalie, PC) Documentation of current 07/31/2017 MED GEN ([facility] medications (procedure) 12:00:00 AM EDT natalie, PC) Documentation of current 07/31/2017 MED GEN ([facility] medications (procedure) 12:00:00 AM EDT natalie, PC) Documentation of current 07/31/2017 MED GEN ([facility] medications (procedure) 12:00:00 AM EDT M natalie, PC) Documentation of current 07/31/2017 MED GEN ([facility] medications (procedure) 12:00:00 AM EDT M natalie, PC) Documentation of current 07/31/2017 MED GEN ([facility] medications (procedure) 12:00:00 AM EDT M natalie, PC) Documentation of current 07/31/2017 MED GEN ([facility] medications (procedure) 12:00:00 AM EDT M [facility], PC) Documentation of current 07/31/2017 MED GEN ([facility] medications (procedure) 12:00:00 AM EDT natalie, PC) Documentation of current 07/31/2017 MED GEN ([facility] medications (procedure) 12:00:00 AM EDT edical, PC) Documentation of current 07/31/2017 MED GEN ([facility] medications (procedure) 12:00:00 AM EDT edical, PC) Documentation of current 07/31/2017 MED GEN ([facility] medications (procedure) 12:00:00 AM EDT edical, PC) Documentation of current 07/31/2017 MED GEN ([facility] medications (procedure) 12:00:00 AM EDT edical, PC) OFFICE OUTPATIENT VISIT 07/31/2017 MEDG EN ([facility] 15 MINUTES 12:00:00 AM EDT Medical, PC) GLUC BLD GLUC MNTR DEV 07/31/2017 MEDGE N ([facility] CLEARED FDA SPEC HOME USE 12:00:00 AM EDT Medical, PC) COLLECTION CAPILLARY 07/31/2017 MEDGEN ([facility] BLOOD SPECIMEN 12:00:00 AM [facility] Medical, P C) Documentation of current 07/31/2017 MED GEN ([facility] medications (procedure) 12:00:00 AM EDT edical, PC) Documentation of current 07/31/2017 MED GEN ([facility] medications (procedure) 12:00:00 AM EDT edical, PC) Documentation of current 07/31/2017 MED GEN ([facility] medications (procedure) 12:00:00 AM EDT edical, PC) Documentation of current 07/31/2017 MED GEN ([facility] medications (procedure) 12:00:00 AM EDT edical, PC) Documentation of current 07/31/2017 MED GEN ([facility] medications (procedure) 12:00:00 AM EDT edical, PC) Documentation of current 07/31/2017 MED GEN ([facility] medications (procedure) 12:00:00 AM EDT edical, PC) Documentation of current 07/31/2017 MED GEN ([facility] medications (procedure) 12:00:00 AM EDT edical, PC) Documentation of current 07/31/2017 MED GEN ([facility] medications (procedure) 12:00:00 AM EDT edical, PC) Documentation of current 07/31/2017 MED GEN ([facility] medications (procedure) 12:00:00 AM EDT edical, ) Documentation of current 07/31/2017 MED GEN ([facility] medications (procedure) 12:00:00 AM EDT edical, PC) Documentation of current 07/31/2017 MED GEN ([facility] medications (procedure) 12:00:00 AM EDT edical, ) Documentation of current 07/31/2017 MED GEN ([facility] medications (procedure) 12:00:00 AM EDT edical, PC) Documentation of current 07/31/2017 MED GEN ([facility] medications (procedure) 12:00:00 AM EDT edical, PC) Documentation of current 07/31/2017 MED GEN ([facility] medications (procedure) 12:00:00 AM EDT edical, PC) Documentation of current 07/31/2017 MED GEN ([facility] medications (procedure) 12:00:00 AM EDT edical, PC) Documentation of current 07/31/2017 MED GEN ([facility] current 07/31/2017 MED GEN ([facility] medications (procedure) 12:00:00 AM EDT edical, ) OFFICE OUTPATIENT VISIT 07/31/2017 MEDG EN ([facility] 15 MINUTES 12:00:00 AM [facility] Medical, PC) GLUC BLD GLUC MNTR DEV 07/31/2017 MEDGE N ([facility] CLEARED FDA SPEC HOME USE 12:00:00 AM EDT Medical, PC) COLLECTION CAPILLARY 07/31/2017 MEDGEN ([facility] BLOOD SPECIMEN 12:00:00 AM EDT Medical, P C) Documentation of current 07/31/2017 MED GEN ([facility] medications (procedure) 12:00:00 AM EDT edical, PC) Documentation of current 07/31/2017 MED GEN ([facility] medications (procedure) 12:00:00 AM EDT edical, PC) Documentation of current 07/31/2017 MED GEN ([facility] medications (procedure) 12:00:00 AM EDT edical, PC) Documentation of current 07/31/2017 MED GEN ([facility] medications (procedure) 12:00:00 AM EDT [facility], PC) Documentation of current 07/31/2017 MED GEN ([facility] medications (procedure) 12:00:00 AM EDT [facility], PC) Documentation of current 07/31/2017 MED GEN ([facility] medications (procedure) 12:00:00 AM EDT [facility], PC) Documentation of current 07/31/2017 MED GEN ([facility] medications (procedure) 12:00:00 AM EDT [facility]alie, PC) Documentation of current 07/31/2017 MED GEN ([facility] medications (procedure) 12:00:00 AM EDT [facility]alie, PC) Documentation of current 07/31/2017 MED GEN ([facility] medications (procedure) 12:00:00 AM EDT [facility], PC) Documentation of current 07/31/2017 MED GEN ([facility] medications (procedure) 12:00:00 AM EDT [facility], PC) Documentation of current 07/31/2017 MED GEN ([facility] medications (procedure) 12:00:00 AM EDT [facility], PC) Documentation of current 07/31/2017 MED GEN ([facility] medications (procedure) 12:00:00 AM EDT [facility], PC) Documentation of current 07/31/2017 MED GEN ([facility] medications (procedure) 12:00:00 AM EDT [facility], PC) Documentation of current 07/31/2017 MED GEN ([facility] medications (procedure) 12:00:00 AM EDT [facility], PC) Documentation of current 07/31/2017 MED GEN ([facility] medications (procedure) 12:00:00 AM EDT [facility]alie, PC) Documentation of current 07/31/2017 MED GEN ([facility] medications (procedure) 12:00:00 AM EDT [facility], PC) Documentation of current 07/31/2017 MED GEN ([facility] medications (procedure) 12:00:00 AM EDT [facility]ie, PC) Documentation of current 07/31/2017 MED GEN ([facility] medications (procedure) 12:00:00 AM EDT [facility], PC) OFFICE OUTPATIENT VISIT 07/31/2017 MEDG EN ([facility] 15 MINUTES 12:00:00 AM EDT Medical, PC) GLUC BLD GLUC MNTR DEV 07/31/2017 MEDGE N ([facility] CLEARED FDA SPEC HOME USE 12:00:00 AM EDT Medical, PC) COLLECTION CAPILLARY 07/31/2017 MEDGEN ([facility] BLOOD SPECIMEN 12:00:00 AM EDT Medical, P C) Documentation of current 07/31/2017 MED GEN ([facility] medications (procedure) 12:00:00 AM EDT edical, PC) Documentation of current 07/31/2017 MED GEN ([facility] medications (procedure) 12:00:00 AM EDT edical, PC) Documentation of current 07/31/2017 MED GEN ([facility] medications (procedure) 12:00:00 AM EDT edical, PC) Documentation of current 07/31/2017 MED GEN ([facility] medications (procedure) 12:00:00 AM EDT edical, PC) Documentation of current 07/31/2017 MED GEN ([facility] medications (procedure) 12:00:00 AM EDT edical, PC) Documentation of current 07/31/2017 MED GEN ([facility] medications (procedure) 12:00:00 AM EDT edical, PC) Documentation of current 07/31/2017 MED GEN ([facility] medications (procedure) 12:00:00 AM EDT edical, PC) Documentation of current 07/31/2017 MED GEN ([facility] medications (procedure) 12:00:00 AM EDT edical, PC) Documentation of current 07/31/2017 MED GEN ([facility] medications (procedure) 12:00:00 AM EDT [facility], PC) Documentation of current 07/31/2017 MED GEN ([facility] medications (procedure) 12:00:00 AM EDT edical, PC) Documentation of current 07/31/2017 MED GEN ([facility] medications (procedure) 12:00:00 AM EDT edical, PC) Documentation of current 07/31/2017 MED GEN ([facility] medications (procedure) 12:00:00 AM EDT edical, PC) Documentation of current 07/31/2017 MED GEN ([facility] medications (procedure) 12:00:00 AM EDT edical, PC) Documentation of current 07/31/2017 MED GEN ([facility] medications (procedure) 12:00:00 AM EDT edical, PC) Documentation of current 07/31/2017 MED GEN ([facility] medications (procedure) 12:00:00 AM EDT edical, PC) Documentation of current 07/31/2017 MED GEN ([facility] medications (procedure) 12:00:00 AM EDT edical, PC) Documentation of current 07/31/2017 MED GEN ([facility] medications (procedure) 12:00:00 AM EDT edical, PC) Documentation of current 07/31/2017 MED GEN ([facility] medications (procedure) 12:00:00 AM EDT edical, PC) Documentation of current 07/31/2017 MED GEN ([facility] medications (procedure) 12:00:00 AM EDT [facility], PC) OFFICE OUTPATIENT VISIT 07/31/2017 MEDG EN ([facility] 15 MINUTES 12:00:00 AM EDT Medical, PC) GLUC BLD GLUC MNTR DEV 07/31/2017 MEDGE N ([facility] CLEARED FDA SPEC HOME USE 12:00:00 AM EDT Medical, PC) COLLECTION CAPILLARY 07/31/2017 MEDGEN ([facility] BLOOD SPECIMEN 12:00:00 AM EDT Medical, P C) Documentation of current 07/31/2017 MED GEN ([facility] medications (procedure) 12:00:00 AM EDT demarcoical, PC) Documentation of current 07/31/2017 MED GEN ([facility] medications (procedure) 12:00:00 AM EDT edical, PC) Documentation of current 07/31/2017 MED GEN ([facility] medications (procedure) 12:00:00 AM EDT edical, PC) Documentation of current 07/31/2017 MED GEN ([facility] medications (procedure) 12:00:00 AM EDT edical, PC) Documentation of current 07/31/2017 MED GEN ([facility] medications (procedure) 12:00:00 AM EDT edical, PC) Documentation of current 07/31/2017 MED GEN ([facility] medications (procedure) 12:00:00 AM EDT edical, PC) Documentation of current 07/31/2017 MED GEN ([facility] medications (procedure) 12:00:00 AM EDT edical, ) Documentation of current 07/31/2017 MED GEN ([facility] medications (procedure) 12:00:00 AM EDT edical, ) Documentation of current 07/31/2017 MED GEN ([facility] medications (procedure) 12:00:00 AM EDT edical, ) Documentation of current 07/31/2017 MED GEN ([facility] medications (procedure) 12:00:00 AM EDT edical, ) Documentation of current 07/31/2017 MED GEN ([facility] medications (procedure) 12:00:00 AM EDT edical, ) Documentation of current 07/31/2017 MED GEN ([facility] medications (procedure) 12:00:00 AM EDT edical, ) Documentation of current 07/31/2017 MED GEN ([facility] medications (procedure) 12:00:00 AM EDT edical, ) Documentation of current 07/31/2017 MED GEN ([facility] medications (procedure) 12:00:00 AM EDT edical, ) Documentation of current 07/31/2017 MED GEN ([facility] medications (procedure) 12:00:00 AM EDT edical, ) Documentation of current 07/31/2017 MED GEN ([facility] medications (procedure) 12:00:00 AM EDT edical, ) Documentation of current 07/31/2017 MED GEN ([facility] medications (procedure) 12:00:00 AM EDT edical, ) Documentation of current 07/31/2017 MED GEN ([facility] medications (procedure) 12:00:00 AM EDT edical, ) OFFICE OUTPATIENT VISIT 07/31/2017 MEDG EN ([facility] 15 MINUTES 12:00:00 AM EDT Medical, PC) GLUC BLD GLUC MNTR DEV 07/31/2017 MEDGE N ([facility] CLEARED FDA SPEC HOME USE 12:00:00 AM EDT Medical, PC) COLLECTION CAPILLARY 07/31/2017 MEDGEN ([facility] BLOOD SPECIMEN 12:00:00 AM ED Medical, P C) Documentation of current 07/31/2017 MED GEN ([facility] medications (procedure) 12:00:00 AM EDT natalie, PC) Documentation of current 07/31/2017 MED GEN ([facility] medications (procedure) 12:00:00 AM EDT natalie, PC) Documentation of current 07/31/2017 MED GEN ([facility] medications (procedure) 12:00:00 AM EDT demarcoical, PC) Documentation of current 07/31/2017 MED GEN ([facility] medications (procedure) 12:00:00 AM EDT demarcoical, PC) Documentation of current 07/31/2017 MED GEN ([facility] medications (procedure) 12:00:00 AM EDT natalie, PC) Documentation of current 07/31/2017 MED GEN ([facility] medications (procedure) 12:00:00 AM EDT natalie, PC) Documentation of current 07/31/2017 MED GEN ([facility] medications (procedure) 12:00:00 AM EDT natalie, PC) Documentation of current 07/31/2017 MED GEN ([facility] medications (procedure) 12:00:00 AM EDT natalie, PC) Documentation of current 07/31/2017 MED GEN ([facility] medications (procedure) 12:00:00 AM EDT natalie, PC) Documentation of current 07/31/2017 MED GEN ([facility] medications (procedure) 12:00:00 AM EDT natalie, PC) Documentation of current 07/31/2017 MED GEN ([facility] medications (procedure) 12:00:00 AM EDT natalie, PC) Documentation of current 07/31/2017 MED GEN ([facility] medications (procedure) 12:00:00 AM EDT natalie, PC) Documentation of current 07/31/2017 MED GEN ([facility] medications (procedure) 12:00:00 AM EDT demarcoical, PC) Documentation of current 07/31/2017 MED GEN ([facility] medications (procedure) 12:00:00 AM EDT natalie, PC) Documentation of current 07/31/2017 MED GEN ([facility] medications (procedure) 12:00:00 AM EDT demarcoical, PC) Documentation of current 07/31/2017 MED GEN ([facility] medications (procedure) 12:00:00 AM EDT M natalie, PC) Documentation of current 07/31/2017 MED GEN ([facility] medications (procedure) 12:00:00 AM EDT natalie, PC) Documentation of current 07/31/2017 MED GEN ([facility] medications (procedure) 12:00:00 AM EDT demarcoical, PC) OFFICE OUTPATIENT VISIT 07/31/2017 MEDG EN ([facility] 15 MINUTES 12:00:00 AM EDT Medical, PC) GLUC BLD GLUC MNTR DEV 07/31/2017 MEDGE N ([facility] CLEARED FDA SPEC HOME USE 12:00:00 AM EDT Medical, PC) COLLECTION CAPILLARY 07/31/2017 MEDGEN ([facility] BLOOD SPECIMEN 12:00:00 AM EDT Medical, P C) Documentation of current 07/31/2017 MED GEN ([facility] medications (procedure) 12:00:00 AM EDT natalie, PC) Documentation of current 07/31/2017 MED GEN ([facility] medications (procedure) 12:00:00 AM EDT natalie, PC) Documentation of current 07/31/2017 MED GEN ([facility] medications (procedure) 12:00:00 AM EDT natalie, PC) Documentation of current 07/31/2017 MED GEN ([facility] medications (procedure) 12:00:00 AM EDT natalie, PC) Documentation of current 07/31/2017 MED GEN ([facility] medications (procedure) 12:00:00 AM EDT demarcoical, PC) Documentation of current 07/31/2017 MED GEN ([facility] medications (procedure) 12:00:00 AM EDT natalie, PC) Documentation of current 07/31/2017 MED GEN ([facility] medications (procedure) 12:00:00 AM EDT demarcoical, PC) Documentation of current 07/31/2017 MED GEN ([facility] medications (procedure) 12:00:00 AM EDT demarcoical, PC) Documentation of current 07/31/2017 MED GEN ([facility] medications (procedure) 12:00:00 AM EDT demarcoical, PC) Documentation of current 07/31/2017 MED GEN ([facility] medications (procedure) 12:00:00 AM EDT edical, PC) Documentation of current 07/31/2017 MED GEN ([facility] medications (procedure) 12:00:00 AM EDT demarcoical, PC) Documentation of current 07/31/2017 MED GEN ([facility] medications (procedure) 12:00:00 AM EDT edical, PC) Documentation of current 07/31/2017 MED GEN ([facility] medications (procedure) 12:00:00 AM EDT edical, PC) Documentation of current 07/31/2017 MED GEN ([facility] medications (procedure) 12:00:00 AM EDT demarcoical, PC) Documentation of current 07/31/2017 MED GEN ([facility] medications (procedure) 12:00:00 AM EDT demarcoical, PC) Documentation of current 07/31/2017 MED GEN ([facility] medications (procedure) 12:00:00 AM EDT edical, PC) Documentation of current 07/31/2017 MED GEN ([facility] medications (procedure) 12:00:00 AM EDT [facility]coical, PC) Documentation of current 07/31/2017 MED GEN ([facility] medications (procedure) 12:00:00 AM EDT [facility]co[facility], PC) OFFICE OUTPATIENT VISIT 07/31/2017 MEDG EN ([facility] 15 MINUTES 12:00:00 AM ED Medical, PC) GLUC BLD GLUC MNTR DEV 07/31/2017 MEDGE N ([facility] CLEARED FDA SPEC HOME USE 12:00:00 AM EDT Medical, PC) COLLECTION CAPILLARY 07/31/2017 MEDGEN ([facility] BLOOD SPECIMEN 12:00:00 AM EDT Medical, P C) Documentation of current 06/05/2017 MED GEN ([facility] medications (procedure) 12:00:00 AM EST Lewis estrada, PC) Documentation of current 06/05/2017 MED GEN ([facility] medications (procedure) 12:00:00 AM EST Lewis estrada, PC) Documentation of current 06/05/2017 MED GEN ([facility] medications (procedure) 12:00:00 AM EST Lewis palical, PC) Documentation of current 06/05/2017 MED GEN ([facility] medications (procedure) 12:00:00 AM EST Lewis estrada, PC) Documentation of current 06/05/2017 MED GEN ([facility] medications (procedure) 12:00:00 AM RJ estrada, CARIDAD) Documentation of current 06/05/2017 MED GEN ([facility] medications (procedure) 12:00:00 AM RJ estrada, CARIDAD) Documentation of current 06/05/2017 MED GEN ([facility] medications (procedure) 12:00:00 AM RJ estrada, PC) Documentation of current 06/05/2017 MED GEN ([facility] medications (procedure) 12:00:00 AM RJ estrada, PC) Documentation of current 06/05/2017 MED GEN ([facility] medications (procedure) 12:00:00 AM RJ estrada, PC) Documentation of current 06/05/2017 MED GEN ([facility] medications (procedure) 12:00:00 AM RJ estrada, PC) Documentation of current 06/05/2017 MED GEN ([facility] medications (procedure) 12:00:00 AM RJ estrada, PC) Documentation of current 06/05/2017 MED GEN ([facility] medications (procedure) 12:00:00 AM RJ estrada, PC) Documentation of current 06/05/2017 MED GEN ([facility] medications (procedure) 12:00:00 AM RJ estrada, PC) Documentation of current 06/05/2017 MED GEN ([facility] medications (procedure) 12:00:00 AM RJ estrada, CARIDAD) Documentation of current 06/05/2017 MED GEN ([facility] medications (procedure) 12:00:00 AM RJ estrada, PC) Documentation of current 06/05/2017 MED GEN ([facility] medications (procedure) 12:00:00 AM RJ estrada, PC) Documentation of current 06/05/2017 MED GEN ([facility] medications (procedure) 12:00:00 AM RJ estrada, PC) Documentation of current 06/05/2017 MED GEN ([facility] medications (procedure) 12:00:00 AM RJ estrada, PC) Documentation of current 06/05/2017 MED GEN ([facility] medications (procedure) 12:00:00 AM RJ estrada, PC) Documentation of current 06/05/2017 MED GEN ([facility] medications (procedure) 12:00:00 AM RJ estrada, PC) Documentation of current 06/05/2017 MED GEN ([facility] medications (procedure) 12:00:00 AM RJ estrada, CARIDAD) Documentation of current 06/05/2017 MED GEN ([facility] medications (procedure) 12:00:00 AM CARIDAD Chavarria) Documentation of current 06/05/2017 MED GEN ([facility] medications (procedure) 12:00:00 AM RJ estrada, PC) Documentation of current 06/05/2017 MED GEN ([facility] medications (procedure) 12:00:00 AM RJ estrada, CARIDAD) Documentation of current 06/05/2017 MED GEN ([facility] medications (procedure) 12:00:00 AM RJ estrada, PC) Documentation of current 06/05/2017 MED GEN ([facility] medications (procedure) 12:00:00 AM CARIDAD Chavarria) Documentation of current 06/05/2017 MED GEN ([facility] medications (procedure) 12:00:00 AM RJ estrada, CARIDAD) Documentation of current 06/05/2017 MED GEN ([facility] medications (procedure) 12:00:00 AM RJ estrada, CARIDAD) Documentation of current 06/05/2017 MED GEN ([facility] medications (procedure) 12:00:00 AM RJ estrada, CARIDAD) Documentation of current 06/05/2017 MED GEN ([facility] medications (procedure) 12:00:00 AM RJ estrada, CARIDAD) Documentation of current 06/05/2017 MED GEN ([facility] medications (procedure) 12:00:00 AM CARIDAD Chavarria) Documentation of current 06/05/2017 MED GEN ([facility] medications (procedure) 12:00:00 AM CARIDAD Chavarria) Documentation of current 06/05/2017 MED GEN ([facility] medications (procedure) 12:00:00 AM RJ estrada, PC) Documentation of current 06/05/2017 MED GEN ([facility] medications (procedure) 12:00:00 AM RJ estrada, CARIDAD) Documentation of current 06/05/2017 MED GEN ([facility] medications (procedure) 12:00:00 AM RJ estrada, PC) Documentation of current 06/05/2017 MED GEN ([facility] medications (procedure) 12:00:00 AM RJ estrada, CARIDAD) Documentation of current 06/05/2017 MED GEN ([facility] medications (procedure) 12:00:00 AM RJ estrada, CARIDAD) Documentation of current 06/05/2017 MED GEN ([facility] medications (procedure) 12:00:00 AM RJ estrada, CARIDAD) Documentation of current 06/05/2017 MED GEN ([facility] medications (procedure) 12:00:00 AM RJ estrada, CARIDAD) Documentation of current 06/05/2017 MED GEN ([facility] medications (procedure) 12:00:00 AM RJ estrada, CARIDAD) Documentation of current 06/05/2017 MED GEN ([facility] medications (procedure) 12:00:00 AM RJ estrada, CARIDAD) Documentation of current 06/05/2017 MED GEN ([facility] medications (procedure) 12:00:00 AM RJ estrada, PC) Documentation of current 06/05/2017 MED GEN ([facility] medications (procedure) 12:00:00 AM RJ estrada, CARIDAD) Documentation of current 06/05/2017 MED GEN ([facility] medications (procedure) 12:00:00 AM RJ estrada, PC) Documentation of current 06/05/2017 MED GEN ([facility] medications (procedure) 12:00:00 AM RJ estrada, CARIDAD) Documentation of current 06/05/2017 MED GEN ([facility] medications (procedure) 12:00:00 AM RJ estrada, PC) Documentation of current 06/05/2017 MED GEN ([facility] medications (procedure) 12:00:00 AM CARIDAD Chavarria) Documentation of current 06/05/2017 MED GEN ([facility] medications (procedure) 12:00:00 AM RJ estrada, PC) Documentation of current 06/05/2017 MED GEN ([facility] medications (procedure) 12:00:00 AM RJ estrada, PC) Documentation of current 06/05/2017 MED GEN ([facility] medications (procedure) 12:00:00 AM RJ estrada, PC) Documentation of current 06/05/2017 MED GEN ([facility] medications (procedure) 12:00:00 AM RJ estrada, PC) Documentation of current 06/05/2017 MED GEN ([facility] medications (procedure) 12:00:00 AM RJ estrada, CARIDAD) Documentation of current 06/05/2017 MED GEN ([facility] medications (procedure) 12:00:00 AM RJ estrada, CARIDAD) Documentation of current 06/05/2017 MED GEN ([facility] medications (procedure) 12:00:00 AM RJ estrada, PC) Documentation of current 06/05/2017 MED GEN ([facility] medications (procedure) 12:00:00 AM RJ estrada, PC) Documentation of current 06/05/2017 MED GEN ([facility] medications (procedure) 12:00:00 AM RJ estrada, PC) Documentation of current 06/05/2017 MED GEN ([facility] medications (procedure) 12:00:00 AM RJ estrada, PC) Documentation of current 06/05/2017 MED GEN ([facility] medications (procedure) 12:00:00 AM RJ estrada, PC) Documentation of current 06/05/2017 MED GEN ([facility] medications (procedure) 12:00:00 AM RJ estrada, PC) Documentation of current 06/05/2017 MED GEN ([facility] medications (procedure) 12:00:00 AM RJ estrada, PC) Documentation of current 06/05/2017 MED GEN ([facility] medications (procedure) 12:00:00 AM RJ estrada, PC) Documentation of current 06/05/2017 MED GEN ([facility] medications (procedure) 12:00:00 AM RJ estrada, PC) Documentation of current 06/05/2017 MED GEN ([facility] medications (procedure) 12:00:00 AM RJ estrada, PC) Documentation of current 06/05/2017 MED GEN ([facility] medications (procedure) 12:00:00 AM RJ estrada, PC) Documentation of current 06/05/2017 MED GEN ([facility] medications (procedure) 12:00:00 AM RJ estrada, PC) Documentation of current 06/05/2017 MED GEN ([facility] medications (procedure) 12:00:00 AM RJ estrada, PC) Documentation of current 06/05/2017 MED GEN ([facility] medications (procedure) 12:00:00 AM RJ estrada, CARIDAD) Documentation of current 06/05/2017 MED GEN ([facility] medications (procedure) 12:00:00 AM CARIDAD Chavarria) Documentation of current 06/05/2017 MED GEN ([facility] medications (procedure) 12:00:00 AM CARIDAD Chavar[place]) Documentation of current 06/05/2017 MED GEN ([facility] medications (procedure) 12:00:00 AM RJ estrada, PC) Documentation of current 06/05/2017 MED GEN ([facility] medications (procedure) 12:00:00 AM RJ estrada, CARIDAD) Documentation of current 06/05/2017 MED GEN ([facility] medications (procedure) 12:00:00 AM RJ estrada, PC) Documentation of current 06/05/2017 MED GEN ([facility] medications (procedure) 12:00:00 AM RJ estrada, PC) Documentation of current 06/05/2017 MED GEN ([facility] medications (procedure) 12:00:00 AM RJ estrada, PC) Documentation of current 06/05/2017 MED GEN ([facility] medications (procedure) 12:00:00 AM RJ estrada, PC) Documentation of current 06/05/2017 MED GEN ([facility] medications (procedure) 12:00:00 AM RJ estrada, CARIDAD) Documentation of current 06/05/2017 MED GEN ([facility] medications (procedure) 12:00:00 AM RJ estrada PC) Documentation of current 06/05/2017 MED GEN ([facility] medications (procedure) 12:00:00 AM RJ estrada PC) Documentation of current 06/05/2017 MED GEN ([facility] medications (procedure) 12:00:00 AM RJ estrada, PC) Documentation of current 06/05/2017 MED GEN ([facility] medications (procedure) 12:00:00 AM RJ estrada, PC) Documentation of current 06/05/2017 MED GEN ([facility] medications (procedure) 12:00:00 AM RJ estrada, PC) Documentation of current 06/05/2017 MED GEN ([facility] medications (procedure) 12:00:00 AM RJ estrada, PC) Documentation of current 06/05/2017 MED GEN ([facility] medications (procedure) 12:00:00 AM RJ estrada, CARIDAD) Documentation of current 06/05/2017 MED GEN ([facility] medications (procedure) 12:00:00 AM RJ estrada, CARIDAD) Documentation of current 06/05/2017 MED GEN ([facility] medications (procedure) 12:00:00 AM RJ estrada, PC) Documentation of current 06/05/2017 MED GEN ([facility] medications (procedure) 12:00:00 AM RJ estrada, PC) Documentation of current 06/05/2017 MED GEN ([facility] medications (procedure) 12:00:00 AM RJ estrada, PC) Documentation of current 06/05/2017 MED GEN ([facility] medications (procedure) 12:00:00 AM RJ estrada, PC) Documentation of current 06/05/2017 MED GEN ([facility] medications (procedure) 12:00:00 AM RJ estrada, PC) Documentation of current 06/05/2017 MED GEN ([facility] medications (procedure) 12:00:00 AM RJ estrada, PC) Documentation of current 06/05/2017 MED GEN ([facility] medications (procedure) 12:00:00 AM RJ estrada, PC) Documentation of current 06/05/2017 MED GEN ([facility] medications (procedure) 12:00:00 AM RJ estrada, PC) Documentation of current 06/05/2017 MED GEN ([facility] medications (procedure) 12:00:00 AM RJ estrada, PC) Documentation of current 06/05/2017 MED GEN ([facility] medications (procedure) 12:00:00 AM RJ estrada, PC) Documentation of current 06/05/2017 MED GEN ([facility] medications (procedure) 12:00:00 AM RJ estrada, PC) Documentation of current 06/05/2017 MED GEN ([facility] medications (procedure) 12:00:00 AM RJ estrada, PC) Documentation of current 06/05/2017 MED GEN ([facility] medications (procedure) 12:00:00 AM RJ estrada, PC) Documentation of current 06/05/2017 MED GEN ([facility] medications (procedure) 12:00:00 AM RJ estrada, PC) Documentation of current 06/05/2017 MED GEN ([facility] medications (procedure) 12:00:00 AM CARIDAD Chavarria) Documentation of current 06/05/2017 MED GEN ([facility] medications (procedure) 12:00:00 AM CARIDAD Chavar[place]) Documentation of current 06/05/2017 MED GEN ([facility] medications (procedure) 12:00:00 AM RJ estrada, PC) Documentation of current 06/05/2017 MED GEN ([facility] medications (procedure) 12:00:00 AM RJ estrada, CARIDAD) Documentation of current 06/05/2017 MED GEN ([facility] medications (procedure) 12:00:00 AM RJ estrada, PC) Documentation of current 06/05/2017 MED GEN ([facility] medications (procedure) 12:00:00 AM RJ estrada, CARIDAD) Documentation of current 06/05/2017 MED GEN ([facility] medications (procedure) 12:00:00 AM RJ estrada, PC) Documentation of current 06/05/2017 MED GEN ([facility] medications (procedure) 12:00:00 AM RJ estrada, CARIDAD) Documentation of current 06/05/2017 MED GEN ([facility] medications (procedure) 12:00:00 AM RJ estrada, CARIDAD) Documentation of current 06/05/2017 MED GEN ([facility] medications (procedure) 12:00:00 AM CARIDAD Chavarria) Documentation of current 06/05/2017 MED GEN ([facility] medications (procedure) 12:00:00 AM CARIDAD Chavar[place]) Documentation of current 06/05/2017 MED GEN ([facility] medications (procedure) 12:00:00 AM RJ estrada, CARIDAD) Documentation of current 06/05/2017 MED GEN ([facility] medications (procedure) 12:00:00 AM RJ estrada, PC) Documentation of current 06/05/2017 MED GEN ([facility] medications (procedure) 12:00:00 AM RJ estrada, CARIDAD) Documentation of current 06/05/2017 MED GEN ([facility] medications (procedure) 12:00:00 AM RJ estrada, PC) Documentation of current 06/05/2017 MED GEN ([facility] medications (procedure) 12:00:00 AM RJ estrada, CARIDAD) Documentation of current 06/05/2017 MED GEN ([facility] medications (procedure) 12:00:00 AM RJ estrada, CARIDAD) Documentation of current 06/05/2017 MED GEN ([facility] medications (procedure) 12:00:00 AM RJ estrada, CARIDAD) Documentation of current 06/05/2017 MED GEN ([facility] medications (procedure) 12:00:00 AM RJ estrada, PC) Documentation of current 06/05/2017 MED GEN ([facility] medications (procedure) 12:00:00 AM RJ estrada, PC) Documentation of current 06/05/2017 MED GEN ([facility] medications (procedure) 12:00:00 AM RJ estrada, PC) Documentation of current 06/05/2017 MED GEN ([facility] medications (procedure) 12:00:00 AM RJ estrada, PC) Documentation of current 06/05/2017 MED GEN ([facility] medications (procedure) 12:00:00 AM RJ estrada, PC) Documentation of current 06/05/2017 MED GEN ([facility] medications (procedure) 12:00:00 AM RJ estrada, PC) Documentation of current 06/05/2017 MED GEN ([facility] medications (procedure) 12:00:00 AM RJ estrada, PC) Documentation of current 06/05/2017 MED GEN ([facility] medications (procedure) 12:00:00 AM RJ estrada, PC) Documentation of current 06/05/2017 MED GEN ([facility] medications (procedure) 12:00:00 AM RJ estrada, PC) Documentation of current 06/05/2017 MED GEN ([facility] medications (procedure) 12:00:00 AM RJ estrada, PC) Documentation of current 06/05/2017 MED GEN ([facility] medications (procedure) 12:00:00 AM RJ estrada, PC) Documentation of current 06/05/2017 MED GEN ([facility] medications (procedure) 12:00:00 AM RJ estrada, PC) Documentation of current 06/05/2017 MED GEN ([facility] medications (procedure) 12:00:00 AM RJ estrada, PC) Documentation of current 06/05/2017 MED GEN ([facility] medications (procedure) 12:00:00 AM RJ estrada, CARIDAD) Documentation of current 06/05/2017 MED GEN ([facility] medications (procedure) 12:00:00 AM RJ estrada, CARIDAD) Documentation of current 06/05/2017 MED GEN ([facility] medications (procedure) 12:00:00 AM RJ estrada, PC) Documentation of current 06/05/2017 MED GEN ([facility] medications (procedure) 12:00:00 AM RJ estrada, PC) Documentation of current 06/05/2017 MED GEN ([facility] medications (procedure) 12:00:00 AM RJ estrada, PC) Documentation of current 06/05/2017 MED GEN ([facility] medications (procedure) 12:00:00 AM RJ estrada, PC) Documentation of current 06/05/2017 MED GEN ([facility] medications (procedure) 12:00:00 AM RJ estrada, PC) Documentation of current 06/05/2017 MED GEN ([facility] medications (procedure) 12:00:00 AM RJ estrada, PC) Documentation of current 06/05/2017 MED GEN ([facility] medications (procedure) 12:00:00 AM RJ estrada, PC) Documentation of current 06/05/2017 MED GEN ([facility] medications (procedure) 12:00:00 AM RJ estrada, CARIDAD) Documentation of current 06/05/2017 MED GEN ([facility] medications (procedure) 12:00:00 AM RJ estrada, PC) Documentation of current 06/05/2017 MED GEN ([facility] medications (procedure) 12:00:00 AM RJ estrada, PC) Documentation of current 06/05/2017 MED GEN ([facility] medications (procedure) 12:00:00 AM RJ estrada, PC) Documentation of current 06/05/2017 MED GEN ([facility] medications (procedure) 12:00:00 AM RJ estrada, PC) Documentation of current 06/05/2017 MED GEN ([facility] medications (procedure) 12:00:00 AM RJ estrada, PC) Documentation of current 06/05/2017 MED GEN ([facility] medications (procedure) 12:00:00 AM RJ estrada, PC) Documentation of current 06/05/2017 MED GEN ([facility] medications (procedure) 12:00:00 AM RJ estrada, CARIDAD) Documentation of current 06/05/2017 MED GEN ([facility] medications (procedure) 12:00:00 AM CARIDAD Chavarria) Documentation of current 06/05/2017 MED GEN ([facility] medications (procedure) 12:00:00 AM RJ estrada, PC) Documentation of current 06/05/2017 MED GEN ([facility] medications (procedure) 12:00:00 AM RJ estrada, CARIDAD) Documentation of current 06/05/2017 MED GEN ([facility] medications (procedure) 12:00:00 AM RJ estrada, PC) Documentation of current 06/05/2017 MED GEN ([facility] medications (procedure) 12:00:00 AM CARIDAD Chavarria) Documentation of current 06/05/2017 MED GEN ([facility] medications (procedure) 12:00:00 AM RJ estrada, CARIDAD) Documentation of current 06/05/2017 MED GEN ([facility] medications (procedure) 12:00:00 AM RJ estrada, CARIDAD) Documentation of current 06/05/2017 MED GEN ([facility] medications (procedure) 12:00:00 AM RJ estrada, CARIDAD) Documentation of current 06/05/2017 MED GEN ([facility] medications (procedure) 12:00:00 AM RJ estrada, CARIDAD) Documentation of current 06/05/2017 MED GEN ([facility] (procedure) 12:00:00 AM CARIDAD Chavarria) Documentation of current 06/05/2017 MED GEN ([facility] (procedure) 12:00:00 AM CARIDAD Chavarria) Documentation of current 06/05/2017 MED GEN ([facility] medications (procedure) 12:00:00 AM RJ estrada, PC) Documentation of current 06/05/2017 MED GEN ([facility] medications (procedure) 12:00:00 AM RJ estrada, CARIDAD) Documentation of current 06/05/2017 MED GEN ([facility] medications (procedure) 12:00:00 AM RJ estrada, PC) Documentation of current 06/05/2017 MED GEN ([facility] medications (procedure) 12:00:00 AM RJ estrada, CARIDAD) Documentation of current 06/05/2017 MED GEN ([facility] medications (procedure) 12:00:00 AM RJ estrada, CARIDAD) Documentation of current 06/05/2017 MED GEN ([facility] medications (procedure) 12:00:00 AM RJ estrada, CARIDAD) Documentation of current 06/05/2017 MED GEN ([facility] medications (procedure) 12:00:00 AM RJ estrada, CARIDAD) Documentation of current 06/05/2017 MED GEN ([facility] medications (procedure) 12:00:00 AM RJ estrada, CARIDAD) Documentation of current 06/05/2017 MED GEN ([facility] (procedure) 12:00:00 AM RJ estrada, CARIDAD) Documentation of current 06/05/2017 MED GEN ([facility] medications (procedure) 12:00:00 AM RJ estrada, PC) Documentation of current 06/05/2017 MED GEN ([facility] (procedure) 12:00:00 AM RJ estrada, CARIDAD) Documentation of current 06/05/2017 MED GEN ([facility] (procedure) 12:00:00 AM RJ estrada, PC) Documentation of current 06/05/2017 MED GEN ([facility] (procedure) 12:00:00 AM RJ estrada, CARIDAD) Documentation of current 06/05/2017 MED GEN ([facility] medications (procedure) 12:00:00 AM RJ estrada, PC) Documentation of current 06/05/2017 MED GEN ([facility] medications (procedure) 12:00:00 AM CARIDAD Chavarria) Documentation of current 06/05/2017 MED GEN ([facility] medications (procedure) 12:00:00 AM RJ estrada, PC) Documentation of current 06/05/2017 MED GEN ([facility] (procedure) 12:00:00 AM RJ estrada, PC) Documentation of current 06/05/2017 MED GEN ([facility] medications (procedure) 12:00:00 AM RJ estrada, PC) Documentation of current 06/05/2017 MED GEN ([facility] medications (procedure) 12:00:00 AM RJ estrada, PC) Documentation of current 06/05/2017 MED GEN ([facility] medications (procedure) 12:00:00 AM RJ estrada, CARIDAD) Documentation of current 06/05/2017 MED GEN ([facility] medications (procedure) 12:00:00 AM RJ estrada, CARIDAD) Documentation of current 06/05/2017 MED GEN ([facility] (procedure) 12:00:00 AM RJ estrada, PC) Documentation of current 06/05/2017 MED GEN ([facility] medications (procedure) 12:00:00 AM RJ estrada, PC) Documentation of current 06/05/2017 MED GEN ([facility] (procedure) 12:00:00 AM RJ estrada, PC) Documentation of current 06/05/2017 MED GEN ([facility] medications (procedure) 12:00:00 AM RJ estrada, PC) Documentation of current 06/05/2017 MED GEN ([facility] medications (procedure) 12:00:00 AM RJ estrada, PC) Documentation of current 06/05/2017 MED GEN ([facility] medications (procedure) 12:00:00 AM RJ estrada, PC) Documentation of current 06/05/2017 MED GEN ([facility] medications (procedure) 12:00:00 AM RJ estrada, PC) Documentation of current 06/05/2017 MED GEN ([facility] medications (procedure) 12:00:00 AM RJ estrada, PC) Documentation of current 06/05/2017 MED GEN ([facility] (procedure) 12:00:00 AM RJ estrada, PC) Documentation of current 06/05/2017 MED GEN ([facility] medications (procedure) 12:00:00 AM RJ estrada, PC) Documentation of current 06/05/2017 MED GEN ([facility] medications (procedure) 12:00:00 AM RJ estrada, PC) Documentation of current 06/05/2017 MED GEN ([facility] (procedure) 12:00:00 AM RJ estrada, PC) Documentation of current 06/05/2017 MED GEN ([facility] medications (procedure) 12:00:00 AM RJ estrada, PC) Documentation of current 06/05/2017 MED GEN ([facility] medications (procedure) 12:00:00 AM RJ estrada, CARIDAD) Documentation of current 06/05/2017 MED GEN ([facility] (procedure) 12:00:00 AM CARIDAD Chavarria) Documentation of current 06/05/2017 MED GEN ([facility] (procedure) 12:00:00 AM CARIDAD Chavarria) Documentation of current 06/05/2017 MED GEN ([facility] medications (procedure) 12:00:00 AM RJ estrada, PC) Documentation of current 06/05/2017 MED GEN ([facility] medications (procedure) 12:00:00 AM RJ estrada, CARIDAD) Documentation of current 06/05/2017 MED GEN ([facility] (procedure) 12:00:00 AM RJ estrada, PC) Documentation of current 06/05/2017 MED GEN ([facility] (procedure) 12:00:00 AM RJ estrada, PC) Documentation of current 06/05/2017 MED GEN ([facility] medications (procedure) 12:00:00 AM RJ estrada, PC) Documentation of current 06/05/2017 MED GEN ([facility] medications (procedure) 12:00:00 AM RJ estrada, PC) Documentation of current 06/05/2017 MED GEN ([facility] medications (procedure) 12:00:00 AM RJ estrada, CARIDAD) Documentation of current 06/05/2017 MED GEN ([facility] medications (procedure) 12:00:00 AM RJ estrada PC) Documentation of current 06/05/2017 MED GEN ([facility] medications (procedure) 12:00:00 AM RJ estrada PC) Documentation of current 06/05/2017 MED GEN ([facility] medications (procedure) 12:00:00 AM RJ estrada, PC) Documentation of current 06/05/2017 MED GEN ([facility] medications (procedure) 12:00:00 AM RJ estrada, PC) Documentation of current 06/05/2017 MED GEN ([facility] (procedure) 12:00:00 AM RJ estrada, PC) Documentation of current 06/05/2017 MED GEN ([facility] medications (procedure) 12:00:00 AM RJ estrada, PC) Documentation of current 06/05/2017 MED GEN ([facility] (procedure) 12:00:00 AM RJ estrada, CARIDAD) Documentation of current 06/05/2017 MED GEN ([facility] (procedure) 12:00:00 AM RJ estrada, CARIDAD) Documentation of current 06/05/2017 MED GEN ([facility] (procedure) 12:00:00 AM RJ estrada, PC) Documentation of current 06/05/2017 MED GEN ([facility] medications (procedure) 12:00:00 AM RJ estrada, PC) Documentation of current 06/05/2017 MED GEN ([facility] (procedure) 12:00:00 AM RJ estrada, PC) Documentation of current 06/05/2017 MED GEN ([facility] (procedure) 12:00:00 AM RJ estrada, PC) Documentation of current 06/05/2017 MED GEN ([facility] (procedure) 12:00:00 AM RJ estrada, PC) Documentation of current 06/05/2017 MED GEN ([facility] medications (procedure) 12:00:00 AM RJ estrada, PC) Documentation of current 06/05/2017 MED GEN ([facility] medications (procedure) 12:00:00 AM RJ estrada, PC) Documentation of current 06/05/2017 MED GEN ([facility] medications (procedure) 12:00:00 AM RJ estrada, PC) Documentation of current 06/05/2017 MED GEN ([facility] medications (procedure) 12:00:00 AM RJ estrada, PC) Documentation of current 06/05/2017 MED GEN ([facility] medications (procedure) 12:00:00 AM RJ estrada, PC) Documentation of current 06/05/2017 MED GEN ([facility] medications (procedure) 12:00:00 AM RJ estrada, PC) Documentation of current 06/05/2017 MED GEN ([facility] (procedure) 12:00:00 AM RJ estrada, PC) Documentation of current 06/05/2017 MED GEN ([facility] (procedure) 12:00:00 AM RJ estrada, PC) Documentation of current 06/05/2017 MED GEN ([facility] (procedure) 12:00:00 AM RJ estrada, PC) Documentation of current 06/05/2017 MED GEN ([facility] medications (procedure) 12:00:00 AM CARIDAD Chavarria) Documentation of current 06/05/2017 MED GEN ([facility] (procedure) 12:00:00 AM CARIDAD Chavarria) Documentation of current 06/05/2017 MED GEN ([facility] (procedure) 12:00:00 AM RJ estrada, PC) Documentation of current 06/05/2017 MED GEN ([facility] (procedure) 12:00:00 AM RJ estrada, CARIDAD) Documentation of current 06/05/2017 MED GEN ([facility] (procedure) 12:00:00 AM RJ estrada, PC) Documentation of current 06/05/2017 MED GEN ([facility] (procedure) 12:00:00 AM RJ estrada, CARIDAD) Documentation of current 06/05/2017 MED GEN ([facility] (procedure) 12:00:00 AM RJ estrada, PC) Documentation of current 06/05/2017 MED GEN ([facility] (procedure) 12:00:00 AM RJ estrada, CARIDAD) Documentation of current 06/05/2017 MED GEN ([facility] (procedure) 12:00:00 AM RJ estrada, CARIDAD) Documentation of current 06/05/2017 MED GEN ([facility] (procedure) 12:00:00 AM CARIDAD Chavarria) Documentation of current 06/05/2017 MED GEN ([facility] (procedure) 12:00:00 AM CARIDAD Chavarria) Documentation of current 06/05/2017 MED GEN ([facility] (procedure) 12:00:00 AM RJ estrada, CARIDAD) Documentation of current 06/05/2017 MED GEN ([facility] (procedure) 12:00:00 AM RJ estrada, PC) Documentation of current 06/05/2017 MED GEN ([facility] (procedure) 12:00:00 AM RJ estrada, CARIDAD) Documentation of current 06/05/2017 MED GEN ([facility] (procedure) 12:00:00 AM RJ estrada, PC) Documentation of current 06/05/2017 MED GEN ([facility] (procedure) 12:00:00 AM RJ estrada, CARIDAD) Documentation of current 06/05/2017 MED GEN ([facility] (procedure) 12:00:00 AM RJ estrada, CARIDAD) Documentation of current 06/05/2017 MED GEN ([facility] (procedure) 12:00:00 AM RJ estrada, CARIDAD) Documentation of current 06/05/2017 MED GEN ([facility] (procedure) 12:00:00 AM RJ estrada, PC) Documentation of current 06/05/2017 MED GEN ([facility] (procedure) 12:00:00 AM RJ estrada, PC) Documentation of current 06/05/2017 MED GEN ([facility] (procedure) 12:00:00 AM RJ estrada, PC) Documentation of current 06/05/2017 MED GEN ([facility] (procedure) 12:00:00 AM RJ estrada, PC) Documentation of current 06/05/2017 MED GEN ([facility] medications (procedure) 12:00:00 AM RJ estrada, PC) Documentation of current 06/05/2017 MED GEN ([facility] medications (procedure) 12:00:00 AM RJ estrada, PC) Documentation of current 06/05/2017 MED GEN ([facility] (procedure) 12:00:00 AM RJ estrada, PC) Documentation of current 06/05/2017 MED GEN ([facility] medications (procedure) 12:00:00 AM RJ estrada, PC) Documentation of current 06/05/2017 MED GEN ([facility] medications (procedure) 12:00:00 AM RJ estrada, PC) Documentation of current 06/05/2017 MED GEN ([facility] medications (procedure) 12:00:00 AM RJ estrada, PC) Documentation of current 06/05/2017 MED GEN ([facility] medications (procedure) 12:00:00 AM RJ estrada, PC) Documentation of current 06/05/2017 MED GEN ([facility] medications (procedure) 12:00:00 AM RJ estrada, PC) Documentation of current 06/05/2017 MED GEN ([facility] medications (procedure) 12:00:00 AM RJ estrada, PC) Documentation of current 06/05/2017 MED GEN ([facility] medications (procedure) 12:00:00 AM RJ estrada, CARIDAD) Documentation of current 06/05/2017 MED GEN ([facility] medications (procedure) 12:00:00 AM RJ estrada, CARIDAD) Documentation of current 06/05/2017 MED GEN ([facility] medications (procedure) 12:00:00 AM RJ estrada, PC) Documentation of current 06/05/2017 MED GEN ([facility] medications (procedure) 12:00:00 AM RJ estrada, PC) Documentation of current 06/05/2017 MED GEN ([facility] medications (procedure) 12:00:00 AM RJ estrada, PC) Documentation of current 06/05/2017 MED GEN ([facility] medications (procedure) 12:00:00 AM RJ estrada, PC) Documentation of current 06/05/2017 MED GEN ([facility] medications (procedure) 12:00:00 AM RJ estrada, PC) Documentation of current 06/05/2017 MED GEN ([facility] medications (procedure) 12:00:00 AM RJ estrada, PC) Documentation of current 06/05/2017 MED GEN ([facility] medications (procedure) 12:00:00 AM RJ estrada, PC) Documentation of current 06/05/2017 MED GEN ([facility] medications (procedure) 12:00:00 AM RJ estrada, CARIDAD) Documentation of current 06/05/2017 MED GEN ([facility] medications (procedure) 12:00:00 AM RJ estrada, PC) Documentation of current 06/05/2017 MED GEN ([facility] medications (procedure) 12:00:00 AM RJ estrada, PC) Documentation of current 06/05/2017 MED GEN ([facility] medications (procedure) 12:00:00 AM RJ estrada, PC) Documentation of current 06/05/2017 MED GEN ([facility] medications (procedure) 12:00:00 AM RJ estrada, PC) Documentation of current 06/05/2017 MED GEN ([facility] medications (procedure) 12:00:00 AM RJ estrada, PC) Documentation of current 06/05/2017 MED GEN ([facility] medications (procedure) 12:00:00 AM RJ estrada, PC) Documentation of current 06/05/2017 MED GEN ([facility] medications (procedure) 12:00:00 AM RJ estrada, CARIDAD) Documentation of current 06/05/2017 MED GEN ([facility] medications (procedure) 12:00:00 AM CARIDAD Chavarria) Documentation of current 06/05/2017 MED GEN ([facility] medications (procedure) 12:00:00 AM RJ estrada, PC) Documentation of current 06/05/2017 MED GEN ([facility] medications (procedure) 12:00:00 AM RJ estrada, CARIDAD) Documentation of current 06/05/2017 MED GEN ([facility] medications (procedure) 12:00:00 AM RJ estrada, PC) Documentation of current 06/05/2017 MED GEN ([facility] medications (procedure) 12:00:00 AM CARIDAD Chavarria) Documentation of current 06/05/2017 MED GEN ([facility] medications (procedure) 12:00:00 AM RJ estrada, CARIDAD) Documentation of current 06/05/2017 MED GEN ([facility] medications (procedure) 12:00:00 AM RJ estrada, CARIDAD) Documentation of current 06/05/2017 MED GEN ([facility] medications (procedure) 12:00:00 AM RJ estrada, CARIDAD) Documentation of current 06/05/2017 MED GEN ([facility] medications (procedure) 12:00:00 AM RJ estrada, CARIDAD) Documentation of current 06/05/2017 MED GEN ([facility] medications (procedure) 12:00:00 AM CARIDAD Chavarria) Documentation of current 06/05/2017 MED GEN ([facility] medications (procedure) 12:00:00 AM CARIDAD Chavarria) Documentation of current 06/05/2017 MED GEN ([facility] medications (procedure) 12:00:00 AM RJ estrada, PC) Documentation of current 06/05/2017 MED GEN ([facility] medications (procedure) 12:00:00 AM RJ estrada, CARIDAD) Documentation of current 06/05/2017 MED GEN ([facility] medications (procedure) 12:00:00 AM RJ estrada, PC) Documentation of current 06/05/2017 MED GEN ([facility] medications (procedure) 12:00:00 AM RJ estrada, CARIDAD) Documentation of current 06/05/2017 MED GEN ([facility] medications (procedure) 12:00:00 AM RJ estrada, CARIDAD) Documentation of current 06/05/2017 MED GEN ([facility] medications (procedure) 12:00:00 AM RJ estrada, CARIDAD) Documentation of current 06/05/2017 MED GEN ([facility] medications (procedure) 12:00:00 AM RJ estrada, CARIDAD) Documentation of current 06/05/2017 MED GEN ([facility] medications (procedure) 12:00:00 AM RJ estrada, CARIDAD) Documentation of current 06/05/2017 MED GEN ([facility] medications (procedure) 12:00:00 AM RJ estrada, CARIDAD) Documentation of current 06/05/2017 MED GEN ([facility] medications (procedure) 12:00:00 AM RJ estrada, PC) Documentation of current 06/05/2017 MED GEN ([facility] medications (procedure) 12:00:00 AM RJ estrada, CARIDAD) Documentation of current 06/05/2017 MED GEN ([facility] medications (procedure) 12:00:00 AM RJ estrada, PC) Documentation of current 06/05/2017 MED GEN ([facility] medications (procedure) 12:00:00 AM RJ estrada, CARIDAD) Documentation of current 06/05/2017 MED GEN ([facility] medications (procedure) 12:00:00 AM RJ estrada, PC) Documentation of current 06/05/2017 MED GEN ([facility] medications (procedure) 12:00:00 AM CARIDAD Chavarria) Documentation of current 06/05/2017 MED GEN ([facility] medications (procedure) 12:00:00 AM RJ estrada, PC) Documentation of current 06/05/2017 MED GEN ([facility] medications (procedure) 12:00:00 AM RJ estrada, PC) Documentation of current 06/05/2017 MED GEN ([facility] medications (procedure) 12:00:00 AM RJ estrada, PC) Documentation of current 06/05/2017 MED GEN ([facility] medications (procedure) 12:00:00 AM RJ estrada, PC) Documentation of current 06/05/2017 MED GEN ([facility] medications (procedure) 12:00:00 AM EST Lewis estrada, PC) Documentation of current 06/05/2017 MED GEN ([facility] medications (procedure) 12:00:00 AM EST Lewis estrada, PC) Documentation of current 06/05/2017 MED GEN ([facility] medications (procedure) 12:00:00 AM EST Lewis estrada, PC) Documentation of current 06/05/2017 MED GEN ([facility] medications (procedure) 12:00:00 AM RJ estrada, PC) Documentation of current 06/05/2017 MED GEN ([facility] medications (procedure) 12:00:00 AM EST Lewis estrada, PC) Documentation of current 06/05/2017 MED GEN ([facility] medications (procedure) 12:00:00 AM EST Lewis estrada, PC) Documentation of current 06/05/2017 MED GEN ([facility] medications (procedure) 12:00:00 AM EST Lewis estrada, PC) Documentation of current 06/05/2017 MED GEN ([facility] medications (procedure) 12:00:00 AM RJ estrada, PC) Documentation of current 06/05/2017 MED GEN ([facility] medications (procedure) 12:00:00 AM EST Lewis estrada, PC) Documentation of current 06/05/2017 MED GEN ([facility] medications (procedure) 12:00:00 AM EST Lewis estrada, PC) Documentation of current 06/05/2017 MED GEN ([facility] medications (procedure) 12:00:00 AM EST Lewis estrada, PC) Documentation of current 06/05/2017 MED GEN ([facility] medications (procedure) 12:00:00 AM EST Lewis estrada, PC) Documentation of current 06/05/2017 MED GEN ([facility] medications (procedure) 12:00:00 AM EST Lewis estrada, PC) Results ID Date Data Source [id number] 11/28/2019 01:04:00 PM EDT [facility] Name Value Range Interpretation Description Data Sup porting Code Source(s) Document(s ) SARS [facility] coronavirus 2 RNA This lab was ordered by [facility] and reported by [facility]. ID Date Data Source [id number] 11/11/2019 12:00:00 AM EDT [facility] ([facility], ) Name Value Range Interpretation Code Description Data Kimberly rce(s) Supporting Document(s ) Creatine, 1 mg/24 hr Normal (applies to MEDGEN (St 24-hr Ur non-numeric D[facility] results) Medical, ) Creatine, 0.1 mg/dL Normal (applies to MEDGEN (St U,mg/dL non-numeric Dony[facility] results) Medical, ) ID Date Data Source [id number] 11/11/2019 12:00:00 AM EDT [facility] ([facility], ) Name Value Range Interpretation Description Data Sup porting Code Source(s) Document(s ) Protein,Total, 234.0 Normal (applies to MEDGEN (St Urine mg/dL non-numeric Dony[facility] results) Medical, ) Prot,24hr 2340 Above high normal MEDGEN (St calculated mg/24 hr [facility], ) ID Date Data Source [id number] 11/11/2019 12:00:00 AM EDT MEDGEN ([facility], ) Name Value Range Interpretation Code Description Data Kimberly rce(s) Supporting Document(s ) Normetane 216 ug/24 Normal (applies to MEDGEN (St phr.,U,24 hr non-numeric Dony's h results) Medical, ) Normetane 216 ug/L Normal (applies to MEDGEN (St phrine, non-numeric Dony's Ur results) Medical, ) Metanephr 103 ug/L Normal (applies to MEDGEN (St ine, Ur non-numeric Dony's results) Medical, ) Metanephr 103 ug/24 Normal (applies to MEDGEN (St ine, hr non-numeric Dony's U,24hr results) Medical, ) ID Date Data Source [id number] 11/11/2019 12:00:00 AM EDT [facility] ([facility], ) Name Value Range Interpretation Code Description Data Kimberly rce(s) Supporting Document(s ) Creatine, 0.1 mg/dL Normal (applies to MEDGEN (St U,mg/dL non-numeric Dony's results) Medical, ) Creatine, 1 mg/24 hr Normal (applies to MEDGEN (St 24-hr Ur non-numeric [facility] results) Medical, ) ID Date Data Source [id number] 11/11/2019 12:00:00 AM EDT [facility] ([facility], ) Name Value Range Interpretation Description Data Sup porting Code Source(s) Document(s ) Protein,Total, 234.0 Normal (applies to MEDGEN (St Urine mg/dL non-numeric Dony's results) Medical, ) Prot,24hr 2340 Above high normal MEDGEN (St calculated mg/24 hr [facility], ) ID Date Data Source [id number] 11/11/2019 12:00:00 AM EDT [facility] ([facility], ) Name Value Range Interpretation Code Description Data Kimberly rce(s) Supporting Document(s ) Normetane 216 ug/L Normal (applies to MEDGEN (St phrine, non-numeric Dony's Ur results) Medical, ) Metanephr 103 ug/L Normal (applies to MEDGEN (St ine, Ur non-numeric [facility]'s results) Medical, ) Normetane 216 ug/24 Normal (applies to MEDGEN (St phr.,U,24 hr non-numeric Odny's h results) Medical, ) Metanephr 103 ug/24 Normal (applies to MEDGEN (St ine, hr non-numeric D[facility]'s U,24hr results) Medical, ) ID Date Data Source [id number] 11/11/2019 12:00:00 AM EDT [facility] ([facility], ) Name Value Range Interpretation Code Description Data Kimberly rce(s) Supporting Document(s ) Creatine, 1 mg/24 hr Normal (applies to MEDGEN (St 24-hr Ur non-numeric [facility] results) Medical, ) Creatine, 0.1 mg/dL Normal (applies to MEDGEN (St U,mg/dL non-numeric [facility] results) Medical, ) ID Date Data Source [id number] 11/11/2019 12:00:00 AM EDT [facility] ([facility], ) Name Value Range Interpretation Description Data Sup porting Code Source(s) Document(s ) Protein,Total, 234.0 Normal (applies to MEDGEN (St Urine mg/dL non-numeric [facility] results) Medical, ) Prot,24hr 2340 Above high normal MEDGEN (St calculated mg/24 hr [facility], ) ID Date Data Source [id number] 11/11/2019 12:00:00 AM EDT [facility] ([facility], ) Name Value Range Interpretation Code Description Data Kimberly rce(s) Supporting Document(s ) Normetane 216 ug/L Normal (applies to MEDGEN (St phrine, non-numeric [facility] Ur results) Medical, ) Normetane 216 ug/24 Normal (applies to MEDGEN (St phr.,U,24 hr non-numeric [facility]'s h results) Medical, ) Metanephr 103 ug/24 Normal (applies to MEDGEN (St ine, hr non-numeric [facility]'s U,24hr results) Medical, ) Metanephr 103 ug/L Normal (applies to MEDGEN (St ine, Ur non-numeric Dony's results) [facility], ) ID Date Data Source [id number] 11/11/2019 12:00:00 AM EDT [facility] ([facility], ) Name Value Range Interpretation Code Description Data Kimberly rce(s) Supporting Document(s ) Creatine, 0.1 mg/dL Normal (applies to [facility] (St U,mg/dL non-numeric D[facility]'s results) Medical, ) Creatine, 1 mg/24 hr Normal (applies to MEDGEN (St 24-hr Ur non-numeric Dony's results) [facility], ) ID Date Data Source [id number] 11/11/2019 12:00:00 AM EDT [facility] ([facility], ) Name Value Range Interpretation Description Data Sup porting Code Source(s) Document(s ) Protein,Total, 234.0 Normal (applies to MEDGEN (St Urine mg/dL non-numeric D[facility] results) Medical, ) Prot,24hr 2340 Above high normal MED[facility] (St calculated mg/24 hr [facility], ) ID Date Data Source [id number] 11/11/2019 12:00:00 AM EDT [facility] ([facility], ) Name Value Range Interpretation Code Description Data Kimberly rce(s) Supporting Document(s ) Normetane 216 ug/L Normal (applies to MEDGEN (St phrine, non-numeric [facility] Ur results) Medical, ) Normetane 216 ug/24 Normal (applies to MEDGEN (St phr.,U,24 hr non-numeric [facility] h results) Medical, ) Metanephr 103 ug/L Normal (applies to MEDGEN (St ine, Ur non-numeric Dony's results) Medical, ) Metanephr 103 ug/24 Normal (applies to MEDGEN (St ine, hr non-numeric Dony's U,24hr results) Medical, ) ID Date Data Source [id number] 11/11/2019 12:00:00 AM EDT [facility] ([facility], ) Name Value Range Interpretation Code Description Data Kimberly rce(s) Supporting Document(s ) Creatine, 0.1 mg/dL Normal (applies to MEDGEN (St U,mg/dL non-numeric [facility] results) Medical, ) Creatine, 1 mg/24 hr Normal (applies to MEDGEN (St 24-hr Ur non-numeric Dony's results) Medical, ) ID Date Data Source [id number] 11/11/2019 12:00:00 AM EDT [facility] ([facility] [facility], ) Name Value Range Interpretation Code Description Data Kimberly rce(s) Supporting Document(s ) Normetane 216 ug/24 Normal (applies to [facility] (St phr.,U,24 hr non-numeric [facility] results) Medical, ) Normetane 216 ug/L Normal (applies to [facility] (St phrine, non-numeric [facility] Ur results) Medical, ) Metanephr 103 ug/L Normal (applies to [facility] (St ine, Ur non-numeric [facility] results) Medical, ) Metanephr 103 ug/24 Normal (applies to [facility] (St ine, hr non-numeric [facility] U,24hr results) Medical, ) ID Date Data Source [id number] 11/11/2019 12:00:00 AM EDT [facility] ([facility], ) Name Value Range Interpretation Code Description Data Kimberly rce(s) Supporting Document(s ) Creatine, 0.1 mg/dL Normal (applies to [facility] (St U,mg/dL non-numeric [facility] results) Medical, ) Creatine, 1 mg/24 hr Normal (applies to [facility] (St 24-hr Ur non-numeric [facility] results) Medical, ) ID Date Data Source [id number] 11/11/2019 12:00:00 AM EDT [facility] ([facility], ) Name Value Range Interpretation Description Data Sup porting Code Source(s) Document(s ) Protein,Total, 234.0 Normal (applies to [facility] (St Urine mg/dL non-numeric [facility] results) Medical, ) Prot,24hr 2340 Above high normal [facility] (St calculated mg/24 hr [facility], ) ID Date Data Source [id number] 11/11/2019 12:00:00 AM EDT [facility] ([facility], ) Name Value Range Interpretation Code Description Data Kimberly rce(s) Supporting Document(s ) Normetane 216 ug/24 Normal (applies to [facility] (St phr.,U,24 hr non-numeric [facility] h results) Medical, ) Normetane 216 ug/L Normal (applies to [facility] (St phrine, non-numeric [facility] Ur results) Medical, ) Metanephr 103 ug/L Normal (applies to [facility] (St ine, Ur non-numeric [facility] results) Medical, ) Metanephr 103 ug/24 Normal (applies to [facility] (St ine, hr non-numeric [facility] U,24hr results) Medical, ) ID Date Data Source [id number] 11/11/2019 12:00:00 AM EDT [facility] ([facility], ) Name Value Range Interpretation Description Data Sup porting Code Source(s) Document(s ) Prot,24hr 2340 Above high normal [facility] (St calculated mg/24 hr [facility], ) Protein,Total, 234.0 Normal (applies to [facility] (St Urine mg/dL non-numeric [facility] results) Medical, ) ID Date Data Source [id number] 11/11/2019 12:00:00 AM EDT [facility] ([facility], ) Name Value Range Interpretation Code Description Data Kimberly rce(s) Supporting Document(s ) Normetane 216 ug/L Normal (applies to [facility] (St phrine, non-numeric [facility] Ur results) Medical, ) Normetane 216 ug/24 Normal (applies to [facility] (St phr.,U,24 hr non-numeric [facility] h results) Medical, ) Metanephr 103 ug/L Normal (applies to [facility] (St ine, Ur non-numeric [facility]ony's results) [facility]) Metanephr 103 ug/24 Normal (applies to [facility] (St ine, hr non-numeric [facility] U,24hr results) [facility]) ID Date Data Source [id number] 11/11/2019 12:00:00 AM EDT [facility] ([facility], ) Name Value Range Interpretation Code Description Data Kimberly rce(s) Supporting Document(s ) Creatine, 0.1 mg/dL Normal (applies to [facility] (St U,mg/dL non-numeric [facility] results) [facility], ) Creatine, 1 mg/24 hr Normal (applies to [facility] (St 24-hr Ur non-numeric [facility] results) [facility]) ID Date Data Source [id number] 11/11/2019 12:00:00 AM EDT [facility] ([facility], ) Name Value Range Interpretation Description Data Sup porting Code Source(s) Document(s ) Protein,Total, 234.0 Normal (applies to [facility] (St Urine mg/dL non-numeric [facility] results) [facility]) Prot,24hr 2340 Above high normal [facility] (St calculated mg/24 hr [facility]) ID Date Data Source [id number] 11/11/2019 12:00:00 AM EDT [facility] ([facility], ) Name Value Range Interpretation Code Description Data Kimberly rce(s) Supporting Document(s ) Creatine, 0.1 mg/dL Normal (applies to [facility] (St U,mg/dL non-numeric [facility]ony's results) [facility]) Creatine, 1 mg/24 hr Normal (applies to [facility] (St 24-hr Ur non-numeric [facility]ony[facility] results) [facility]) ID Date Data Source [id number] 11/11/2019 12:00:00 AM EDT [facility] ([facility], ) Name Value Range Interpretation Description Data Sup porting Code Source(s) Document(s ) Prot,24hr 2340 Above high normal [facility] (St calculated mg/24 hr [facility], ) Protein,Total, 234.0 Normal (applies to [facility] (St Urine mg/dL non-numeric [facility] results) Medical, ) ID Date Data Source [id number] 11/11/2019 12:00:00 AM EDT [facility] ([facility], ) Name Value Range Interpretation Code Description Data Kimberly rce(s) Supporting Document(s ) Normetane 216 ug/L Normal (applies to [facility] (St phrine, non-numeric [facility] Ur results) Medical, ) Normetane 216 ug/24 Normal (applies to [facility] (St phr.,U,24 hr non-numeric [facility] h results) Medical, ) Metanephr 103 ug/L Normal (applies to [facility] (St ine, Ur non-numeric [facility] results) Medical, ) Metanephr 103 ug/24 Normal (applies to [facility] (St ine, hr non-numeric [facility] U,24hr results) Medical, ) ID Date Data Source [id number] 11/11/2019 12:00:00 AM EDT [facility] ([facility], ) Name Value Range Interpretation Code Description Data Kimberly rce(s) Supporting Document(s ) Normetane 216 ug/L Normal (applies to [facility] (St phrine, non-numeric [facility] Ur results) Medical, ) Normetane 216 ug/24 Normal (applies to [facility] (St phr.,U,24 hr non-numeric [facility] h results) Medical, ) Metanephr 103 ug/L Normal (applies to [facility] (St ine, Ur non-numeric [facility]ony's results) Medical, ) Metanephr 103 ug/24 Normal (applies to [facility] (St ine, hr non-numeric [facility] U,24hr results) Medical, ) ID Date Data Source [id number] 11/11/2019 12:00:00 AM EDT [facility] ([facility], ) Name Value Range Interpretation Code Description Data Kimberly rce(s) Supporting Document(s ) Creatine, 1 mg/24 hr Normal (applies to [facility] (St 24-hr Ur non-numeric [facility] results) Medical, ) Creatine, 0.1 mg/dL Normal (applies to [facility] (St U,mg/dL non-numeric [facility] results) Medical, ) ID Date Data Source [id number] 11/11/2019 12:00:00 AM EDT [facility] ([facility], ) Name Value Range Interpretation Description Data Sup porting Code Source(s) Document(s ) Protein,Total, 234.0 Normal (applies to [facility] (St Urine mg/dL non-numeric [facility] results) Medical, ) Prot,24hr 2340 Above high normal [facility] (St calculated mg/24 hr [facility], ) ID Date Data Source [id number] 11/11/2019 12:00:00 AM EDT [facility] ([facility], ) Name Value Range Interpretation Code Description Data Kimberly rce(s) Supporting Document(s ) Creatine, 0.1 mg/dL Normal (applies to [facility] (St U,mg/dL non-numeric [facility] results) Medical, ) Creatine, 1 mg/24 hr Normal (applies to [facility] (St 24-hr Ur non-numeric [facility] results) Medical, ) ID Date Data Source [id number] 11/11/2019 12:00:00 AM EDT [facility] ([facility], ) Name Value Range Interpretation Code Description Data Kimberly rce(s) Supporting Document(s ) Normetane 216 ug/L Normal (applies to [facility] (St phrine, non-numeric [facility] Ur results) Medical, ) Normetane 216 ug/24 Normal (applies to [facility] (St phr.,U,24 hr non-numeric [facility]'s h results) Medical, ) Metanephr 103 ug/L Normal (applies to [facility] (St ine, Ur non-numeric [facility]ony's results) Medical, ) Metanephr 103 ug/24 Normal (applies to [facility] (St ine, hr non-numeric [facility]'s U,24hr results) Medical, ) ID Date Data Source Liver 11/05/2019 06:05:00 AM EDT [facility] Profile.[id number] Name Value Range Interpretation Description Data Sup porting Code Source(s) Document(s ) Aspartate 17-59 <content [facility] aminotransferase styleCode="Bold"> Conrad hs [Enzymatic Aspartate Medical activity/volume] Aminotransferase Center in Serum or Plasma (AST) </content>22 IU/L<content styleCode="Italic s"> (17-59 IU/L)</content> Bilirubin.total 0.2-1.3 <content [facility] [Mass/volume] in styleCode="Bold"> Conrad hs Serum or Plasma Bilirubin Total Medical </content>0.3 Center MG/DL<content styleCode="Italic s"> (0.2-1.3 MG/DL)</content> Alanine 7-50 <content [facility] aminotransferase styleCode="Bold"> Conrad hs [Enzymatic Alanine Medical activity/volume] Aminotransferase Center in Serum or Plasma (ALT) </content>17 IU/L<content styleCode="Italic s"> (7-50 IU/L)</content> Alkaline 38-126 <content [facility] phosphatase styleCode="Bold"> Karmen [Enzymatic Alkaline Medical activity/volume] Phosphatase (ALP) Cente r in Serum or Plasma </content>106 IU/L<content styleCode="Italic s"> (38-126 IU/L)</content> Albumin 3.5-5.0 Below low <content [facility] [Mass/volume] in normal styleCode="Bold"> Conrad hs Serum or Plasma Albumin Medical </content>2.9 Center G/DL L<content styleCode="Italic s"> (3.5-5.0 G/DL)</content> ID Date Data Source HematologyRou.[id number] 11/05/2019 06:05:[address] [facility] 0400 Name Value Range Interpretation Description Data Sup porting Code Source(s) Document(s ) Leukocytes 4.4-11.0 <content [facility] [#/volume] in styleCode="Bold Karmen Blood by ">White Blood Medical Automated count Cell Count Center </content>6.04 KCUMM<content styleCode="Ital ics"> (4.4-11.0 KCUMM)</content > Erythrocytes 4.4-5.9 Below low normal <content [facility] [#/volume] in styleCode="Bold Karmen Blood by ">Red Blood Medical Automated count Cell Count Center </content>2.90 MCUMM L<content styleCode="Ital ics"> (4.4-5.9 MCUMM)</content > Hematocrit 41.0-53. Below low normal <content [facility] [Volume 0 styleCode="Bold Karmen Fraction] of ">Hematocrit Medical Blood by </content>24.6 Center Automated count % L<content styleCode="Ital ics"> (41.0-53.0 %)</content> Hemoglobin 13.5-17. Below low normal <content [facility] [Mass/volume] in 5 styleCode="Bold Karmen Blood ">Hemoglobin Medical </content>7.9 Center G/DL L<content styleCode="Ital ics"> (13.5-17.5 G/DL)</content> Erythrocyte mean 80.0-100 <content [facility] corpuscular .0 styleCode="Bold Karmen volume [Entitic ">Mean Medical volume] by Corpuscular Center Automated count Volume </content>84.8 FL<content styleCode="Ital ics"> (80.0-100.0 FL)</content> Erythrocyte mean 26.0-34. <content [facility] corpuscular 0 styleCode="Bold Karmen hemoglobin ">Mean Medical [Entitic mass] Corposcular Center by Automated Hemoglobin count </content>27.2 PG<content styleCode="Ital ics"> (26.0-34.0 PG)</content> Platelets 130-400 <content [facility] [#/volume] in styleCode="Bold Karmen Blood by ">Platelet Medical Automated count Count Center </content>221 KCUMM<content styleCode="Ital ics"> (130-400 KCUMM)</content > Erythrocyte 11.5-14. <content [facility] distribution 5 styleCode="Bold Karmen width [Ratio] by ">Red Cell Medical Automated count Distribution Center Width </content>13.4 %<content styleCode="Ital ics"> (11.5-14.5 %)</content> Erythrocyte mean 32.0-37. <content [facility] corpuscular 0 styleCode="Bold Karmen hemoglobin ">Mean Corpus. Medical concentration Hgb Center [Mass/volume] by Concentration Automated count (MCHC) </content>32.1 G/DL<content styleCode="Ital ics"> (32.0-37.0 G/DL)</content> UNK 1.6-7.3 <content [facility] styleCode="Bold Karmen ">Neutrophil Medical Count Center </content>4.48 KCUMM<content styleCode="Ital ics"> (1.6-7.3 KCUMM)</content > Platelet mean 8.0-11.0 <content [facility] volume [Entitic styleCode="Bold Karmen volume] in Blood ">Mean Platelet Medical by Automated Volume Center count </content>10.7 FL<content styleCode="Ital ics"> (8.0-11.0 FL)</content> Neutrophils 36-66 Above high <content [facility] [#/volume] in normal styleCode="Bold Karmen Blood by ">Neutrophil Medical Automated count </content>74.1 Center % H<content styleCode="Ital ics"> (36-66 %)</content> Lymphocytes 24.0-44. Below low normal <content [facility] [#/volume] in 0 styleCode="Bold Karmen Blood by ">Lymphocyte Medical Automated count </content>14.1 Center % L<content styleCode="Ital ics"> (24.0-44.0 %)</content> UNK 1.0-4.8 Below low normal <content [facility] styleCode="Bold Karmen ">Lymphocyte Medical Count Center </content>0.85 KCUMM L<content styleCode="Ital ics"> (1.0-4.8 KCUMM)</content > Monocytes 3.0-10.0 <content [facility] [#/volume] in styleCode="Bold Karmen Blood by ">Monocyte Medical Automated count </content>7.5 Center %<content styleCode="Ital ics"> (3.0-10.0 %)</content> Eosinophils 0-5.0 <content [facility] [#/volume] in styleCode="Bold Karmen Blood by ">Eosinophil Medical Automated count </content>3.3 Center %<content styleCode="Ital ics"> (0-5.0 %)</content> UNK 0.0-0.6 <content [facility] styleCode="Bold Karmen ">Eosinophil Medical Count Center </content>0.20 KCUMM<content styleCode="Ital ics"> (0.0-0.6 KCUMM)</content > UNK 0.2-0.9 <content [facility] styleCode="Bold Karmen ">Monocyte Medical Count Center </content>0.45 KCUMM<content styleCode="Ital ics"> (0.2-0.9 KCUMM)</content > Basophils 0.0-1.0 <content [facility] [#/volume] in styleCode="Bold [facility] Blood by ">Basophil Medical Automated count </content>0.7 Center %<content styleCode="Ital ics"> (0.0-1.0 %)</content> UNK 0.0-0.3 <content [facility] styleCode="Bold Karmen ">Basophil Medical Count Center </content>0.04 KCUMM<content styleCode="Ital ics"> (0.0-0.3 KCUMM)</content > UNK 0 <content [facility] styleCode="Bold Karmen ">Nucleated Red Medical Blood Cell Center </content>0.0 /100<content styleCode="Ital ics"> (0 /100)</content> UNK 0-0.1 <content [facility] styleCode="Bold Karmen ">Immature Medical Granulocyte Center Count </content>0.02 KCUMM<content styleCode="Ital ics"> (0-0.1 KCUMM)</content > UNK < 1 <content [facility] styleCode="Bold Karmen ">Immature Medical Granulocyte Center Ratio </content>0.3 %<content styleCode="Ital ics"> (< 1 %)</content> UNK 0.0 <content [facility] styleCode="Bold Karmen ">Nucleated Red Medical Blood Cell Center Count </content>0.00 KCUMM<content styleCode="Ital ics"> (0.0 KCUMM)</content > ID Date Data Source GFR(Creatinine).[id number] 11/05/2019 06:05:[address] [facility] 0-0400 Name Value Range Interpretation Code Description Data Kimberly rce(s) Supporting Document(s ) UNK > 60 Below low normal <content [facility] styleCode="Bold"> Medical Cent er EGFR </content>30 GFR L<content styleCode="Italic s"> (> 60 GFR)</content> ID Date Data Source Coagulation 11/05/2019 06:05:00 AM [facility] Rout.[id number] EDT Name Value Range Interpretation Description Data Sup porting Code Source(s) Document(s ) INR in 0.80-1.2 Above high normal <content [facility] Platelet poor 0 styleCode="Bold" Karmen plasma by >INR Medical Coagulation </content>1.24 # Center assay H<content styleCode="Itali cs"> (0.80-1.20 #)</content> UNK 9.0-13.0 Above high normal <content [facility] styleCode="Bold" Karmen >Protime Medical </content>13.8 Center SEC H<content styleCode="Itali cs"> (9.0-13.0 SEC)</content> aPTT in 25.1-36. Above high normal <content [facility] Platelet poor 5 styleCode="Bold" Karmen plasma by >Partial Medical Coagulation Thromboplastin Center assay Time </content>36.9 SEC H<content styleCode="Itali cs"> (25.1-36.5 SEC)</content> ID Date Data Source CHMROUTINECCDA.[id number] 11/05/2019 06:05:[address] [facility] -0400 Name Value Range Interpretation Description Data Sup porting Code Source(s) Document(s ) Ferritin 18-464 <content [facility] [Mass/volume] styleCode="Jonny Karmen in Serum or d">Ferritin Medical Plasma </content>95.3 Center NG/ML<content styleCode="Lesli lics"> (18-464 NG/ML)</conten t> UNK >= 1.0 <content [facility] styleCode="Jonny Karmen d">AG Ratio Medical </content>1.1 Center <content styleCode="Lesli lics"> (>= 1.0 )</content> Magnesium 1.6-2.3 <content [facility] [Mass/volume] styleCode="Jonny Karmen in Serum or d">Magnesium Medical Plasma </content>1.8 Center MG/DL<content styleCode="Lesli lics"> (1.6-2.3 MG/DL)</conten t> Iron 49-181 <content [facility] [Mass/volume] styleCode="Jonny Karmen in Serum or d">Iron Medical Plasma </content>49 Center UG/DL<content styleCode="Lesli lics"> (49-181 UG/DL)</conten t> UNK 2.3-3.5 <content [facility] styleCode="Jonny Karmen d">Globulin Medical </content>2.7 Center G/DL<content styleCode="Lesli lics"> (2.3-3.5 G/DL)</content > Protein 6.3-8.2 Below low normal <content [facility] [Mass/volume] styleCode="Jonny Karmen in Serum or d">Total Medical Plasma Protein Center </content>5.6 G/DL L<content styleCode="Lesli lics"> (6.3-8.2 G/DL)</content > UNK 261-462 Below low normal <content [facility] styleCode="Jonny Karmen d">TIBC Medical </content>214 Center UG/DL L<content styleCode="Lesli lics"> (261-462 UG/DL)</conten t> Phosphate 2.5-4.5 <content [facility] [Mass/volume] styleCode="Jonny Karmen in Serum or d">Phosphorus Medical Plasma </content>4.4 Center MG/DL<content styleCode="Lesli lics"> (2.5-4.5 MG/DL)</conten t> ID Date Data Source [facility].[id number] 11/05/2019 06:05:00 AM EDT [facility] Center Name Value Range Interpretation Description Data Sup porting Code Source(s) Document(s ) Sodium 137-145 <content [facility] [Moles/volume] in styleCode="Bold"> Zeyad phs Serum or Plasma Sodium Medical </content>140 Center MEQ/L<content styleCode="Italic s"> (137-145 MEQ/L)</content> Potassium 3.5-5.3 Below low <content [facility] [Moles/volume] in normal styleCode="Bold"> Zeyad phs Serum or Plasma Potassium Medical </content>3.2 Center MEQ/L L<content styleCode="Italic s"> (3.5-5.3 MEQ/L)</content> Chloride 98-107 Above high <content [facility] [Moles/volume] in normal styleCode="Bold"> Zeyad phs Serum or Plasma Chloride Medical </content>112 Center MEQ/L H<content styleCode="Italic s"> (98-107 MEQ/L)</content> Carbon dioxide, 22-30 <content [facility] total styleCode="Bold"> Karmen [Moles/volume] in Carbon Dioxide Medical Serum or Plasma </content>23 Center MEQ/L<content styleCode="Italic s"> (22-30 MEQ/L)</content> Glucose 74-106 Above high <content [facility] [Mass/volume] in normal styleCode="Bold"> Conrad hs Serum or Plasma Glucose Medical </content>152 Center MG/DL H<content styleCode="Italic s"> (74-106 MG/DL)</content> Creatinine 0.5-1.3 Above high <content [facility] [Mass/volume] in normal styleCode="Bold"> Conrad hs Serum or Plasma Creatinine Medical </content>2.4 Center MG/DL H<content styleCode="Italic s"> (0.5-1.3 MG/DL)</content> UNK 9-20 Above high <content [facility] normal styleCode="Bold"> Karmen BUN </content>30 Medical MG/DL H<content Center styleCode="Italic s"> (9-20 MG/DL)</content> Calcium 8.4-10. <content [facility] [Mass/volume] in 2 styleCode="Bold"> Conrad hs Serum or Plasma Calcium Medical </content>8.4 Center MG/DL<content styleCode="Italic s"> (8.4-10.2 MG/DL)</content> Aspartate 17-59 <content [facility] aminotransferase styleCode="Bold"> Conrad hs [Enzymatic Aspartate Medical activity/volume] Aminotransferase Center in Serum or Plasma (AST) </content>22 IU/L<content styleCode="Italic s"> (17-59 IU/L)</content> UNK > 60 Below low <content [facility] normal styleCode="Bold"> Karmen EGFR </content>30 Medical GFR L<content Center styleCode="Italic s"> (> 60 GFR)</content> Albumin 3.5-5.0 Below low <content [facility] [Mass/volume] in normal styleCode="Bold"> Conrad hs Serum or Plasma Albumin Medical </content>2.9 Center G/DL L<content styleCode="Italic s"> (3.5-5.0 G/DL)</content> Bilirubin.total 0.2-1.3 <content [facility] [Mass/volume] in styleCode="Bold"> Conrad hs Serum or Plasma Bilirubin Total Medical </content>0.3 Center MG/DL<content styleCode="Italic s"> (0.2-1.3 MG/DL)</content> Alkaline 38-126 <content [facility] phosphatase styleCode="Bold"> Karmen [Enzymatic Alkaline Medical activity/volume] Phosphatase (ALP) Cente r in Serum or Plasma </content>106 IU/L<content styleCode="Italic s"> (38-126 IU/L)</content> Alanine 7-50 <content [facility] aminotransferase styleCode="Bold"> Conrad hs [Enzymatic Alanine Medical activity/volume] Aminotransferase Center in Serum or Plasma (ALT) </content>17 IU/L<content styleCode="Italic s"> (7-50 IU/L)</content> ID Date Data Source Urinalysis.[id number] 11/04/2019 05:15:[address] [facility] 0 Name Value Range Interpretation Description Data Sup porting Code Source(s) Document(s ) Color of Urine YELLOW <content [facility] styleCode="Jonny Karmen d">Color, Medical Urine Center </content>YELL OW <content styleCode="Lesli lics"> (YELLOW )</content> Glucose NEGATIVE <content [facility] [Mass/volume] styleCode="Jonny Peraza in Urine by d">Urine Medical Test strip Glucose Center </content>250 MG/DL<content styleCode="Lesli lics"> (NEGATIVE MG/DL)</conten t> UNK CLEAR <content [facility] styleCode="Jonny Loves d">Urine Medical Clarity Center </content>HAZY <content styleCode="Lesli lics"> (CLEAR )</content> Ketones NEGATIVE <content [facility] [Mass/volume] styleCode="Jonny Peraza in Urine by d">Urine Medical Test strip Ketone Center </content>NEGA TIVE MG/DL<content styleCode="Lesli lics"> (NEGATIVE MG/DL)</conten t> UNK NEGATIVE <content [facility] styleCode="Jonny Loves d">Urine Medical Bilirubin Center </content>NEGA TIVE <content styleCode="Lesli lics"> (NEGATIVE )</content> Specific 1.015-1.02 <content [facility] gravity of 5 styleCode="Jonny Peraza Urine by Test d">Urine Medical strip Specific Center [facility] </content>1.02 5 <content styleCode="Lesli lics"> (1.015-1.025 )</content> pH of Urine by 4.5-8.0 <content [facility] Test strip styleCode="Jonny Loves d">Urine pH Medical </content>6.0 Center <content styleCode="Lesli lics"> (4.5-8.0 )</content> Hemoglobin NEGATIVE <content [facility] [Presence] in styleCode="Jonny Peraza Urine by Test d">Urine Blood Medical strip </content>TRAC Center E <content styleCode="Lesli lics"> (NEGATIVE )</content> Protein NEGATIVE <content [facility] [Mass/volume] styleCode="Jonny Peraza in Urine by d">Urine Medical Test strip Protein Center </content>100 MG/DL<content styleCode="Lesli lics"> (NEGATIVE MG/DL)</conten t> Nitrite NEGATIVE <content [facility] [Presence] in styleCode="Jonny Loves Urine by Test d">Urine Medical strip Nitrite Center </content>NEGA TIVE <content styleCode="Lesli lics"> (NEGATIVE )</content> Urobilinogen 0.2-1.0 <content [facility] [Units/volume] styleCode="Jonny Loves in Urine by d">Urine Medical Test strip Urobilinogen Center </content>0.2 MG/DL<content styleCode="Lesli lics"> (0.2-1.0 MG/DL)</conten t> UNK 0-3 <content [facility] styleCode="Jonny Karmen d">Urine Red Medical Blood Cell Center </content>3-5 HPF<content styleCode="Lesli lics"> (0-3 HPF)</content> UNK 0-3 <content [facility] styleCode="Jonny Karmen d">Urine White Medical Blood Cell Center </content>0-3 HPF<content styleCode="Lesli lics"> (0-3 HPF)</content> Leukocyte NEGATIVE <content [facility] esterase styleCode="Jonny Loves [Presence] in d">Urine Medical Urine by Test Leukocyte Center strip </content>NEGA TIVE <content styleCode="Lesli lics"> (NEGATIVE )</content> UNK NONE SEEN <content [facility] styleCode="Jonny Karmen d">Epithelial Medical Cell Center </content>5 - 10 HPF<content styleCode="Lesli lics"> (NONE SEEN HPF)</content> UNK NEGATIVE <content [facility] styleCode="Jonny Karmen d">Urine Medical Bacteria Center </content>FEW HPF<content styleCode="Lesli lics"> (NEGATIVE HPF)</content> UNK NONE SEEN <content [facility] styleCode="Jonny Karmen d">Urine Mucus Medical </content>MODE Center RATE HPF<content styleCode="Lesli lics"> (NONE SEEN HPF)</content> UNK 22-328 <content [facility] styleCode="Jonny Karmen d">Creatinine, Medical Random Urine Center </content>47.4 MG/DL<content styleCode="Lesli lics"> (22-328 MG/DL)</conten t> UNK 30-90 Above high <content [facility] normal styleCode="Jonny Karmen d">Sodium, Medical Random Urine Center </content>119 MEQ/L H<content styleCode="Lesli lics"> (30-90 MEQ/L)</conten t> ID Date Data Source CHMROUTINECCDA.[id number] 11/04/2019 05:15:[address] [facility] -0400 Name Value Range Interpretation Description Data Sup porting Code Source(s) Document(s ) Cannabinoids <content Saint [Presence] in styleCode="Jonny [facility] Urine by Screen d">Cannabinoid Medical method >50 ng/mL s Center </content>NEGA TIVE NG/ML (Reference Range: not available)<br/ > ID Date Data Source Liver 11/04/2019 06:07:00 AM EDT [facility] Profile.[id number] Name Value Range Interpretation Description Data Sup porting Code Source(s) Document(s ) Aspartate 17-59 <content [facility] aminotransferase styleCode="Bold"> Conrad hs [Enzymatic Aspartate Medical activity/volume] Aminotransferase Center in Serum or Plasma (AST) </content>20 IU/L<content styleCode="Italic s"> (17-59 IU/L)</content> Alanine 7-50 <content [facility] aminotransferase styleCode="Bold"> Conrad hs [Enzymatic Alanine Medical activity/volume] Aminotransferase Center in Serum or Plasma (ALT) </content>16 IU/L<content styleCode="Italic s"> (7-50 IU/L)</content> Bilirubin.total 0.2-1.3 Below low <content [facility] [Mass/volume] in normal styleCode="Bold"> Conrad hs Serum or Plasma Bilirubin Total Medical </content>< 0.2 Center MG/DL L<content styleCode="Italic s"> (0.2-1.3 MG/DL)</content> Alkaline 38-126 <content [facility] phosphatase styleCode="Bold"> Karmen [Enzymatic Alkaline Medical activity/volume] Phosphatase (ALP) Cente r in Serum or Plasma </content>92 IU/L<content styleCode="Italic s"> (38-126 IU/L)</content> Albumin 3.5-5.0 Below low <content [facility] [Mass/volume] in normal styleCode="Bold"> Conrad hs Serum or Plasma Albumin Medical </content>2.6 Center G/DL L<content styleCode="Italic s"> (3.5-5.0 G/DL)</content> ID Date Data Source HematologyRou.[id number] 11/04/2019 06:07:00 AM EDT [facility] 0400 Name Value Range Interpretation Description Data Sup porting Code Source(s) Document(s ) Hemoglobin 13.5-17. Below low normal <content [facility] [Mass/volume] in 5 styleCode="Bold Karmen Blood ">Hemoglobin Medical </content>7.4 Center G/DL L<content styleCode="Ital ics"> (13.5-17.5 G/DL)</content> Erythrocytes 4.4-5.9 Below low normal <content Saint [#/volume] in styleCode="Bold Karmen Blood by ">Red Blood Medical Automated count Cell Count Center </content>2.76 MCUMM L<content styleCode="Ital ics"> (4.4-5.9 MCUMM)</content > Leukocytes 4.4-11.0 <content Saint [#/volume] in styleCode="Bold Karmen Blood by ">White Blood Medical Automated count Cell Count Center </content>5.36 KCUMM<content styleCode="Ital ics"> (4.4-11.0 KCUMM)</content > Hematocrit 41.0-53. Below low normal <content [facility] [Volume 0 styleCode="Bold Karmen Fraction] of ">Hematocrit Medical Blood by </content>23.3 Center Automated count % L<content styleCode="Ital ics"> (41.0-53.0 %)</content> Erythrocyte mean 26.0-34. <content [facility] corpuscular 0 styleCode="Bold Karmen hemoglobin ">Mean Medical [Entitic mass] Corposcular Center by Automated Hemoglobin count </content>26.8 PG<content styleCode="Ital ics"> (26.0-34.0 PG)</content> Erythrocyte mean 80.0-100 <content [facility] corpuscular .0 styleCode="Bold Karmen volume [Entitic ">Mean Medical volume] by Corpuscular Center Automated count Volume </content>84.4 FL<content styleCode="Ital ics"> (80.0-100.0 FL)</content> Erythrocyte 11.5-14. <content [facility] distribution 5 styleCode="Bold Karmen width [Ratio] by ">Red Cell Medical Automated count Distribution Center Width </content>13.6 %<content styleCode="Ital ics"> (11.5-14.5 %)</content> Platelet mean 8.0-11.0 <content [facility] volume [Entitic styleCode="Bold Karmen volume] in Blood ">Mean Platelet Medical by Automated Volume Center count </content>10.1 FL<content styleCode="Ital ics"> (8.0-11.0 FL)</content> Platelets 130-400 <content Saint [#/volume] in styleCode="Bold Karmen Blood by ">Platelet Medical Automated count Count Center </content>196 KCUMM<content styleCode="Ital ics"> (130-400 KCUMM)</content > Erythrocyte mean 32.0-37. Below low normal <content [facility] corpuscular 0 styleCode="Bold Karmen hemoglobin ">Mean Corpus. Medical concentration Hgb Center [Mass/volume] by Concentration Automated count (MCHC) </content>31.8 G/DL L<content styleCode="Ital ics"> (32.0-37.0 G/DL)</content> Neutrophils 36-66 Above high <content Saint [#/volume] in normal styleCode="Bold Karmen Blood by ">Neutrophil Medical Automated count </content>71.2 Center % H<content styleCode="Ital ics"> (36-66 %)</content> UNK 1.6-7.3 <content Saint styleCode="Bold Karmen ">Neutrophil Medical Count Center </content>3.82 KCUMM<content styleCode="Ital ics"> (1.6-7.3 KCUMM)</content > Lymphocytes 24.0-44. Below low normal <content Saint [#/volume] in 0 styleCode="Bold Karmen Blood by ">Lymphocyte Medical Automated count </content>15.7 Center % L<content styleCode="Ital ics"> (24.0-44.0 %)</content> Monocytes 3.0-10.0 <content [facility] [#/volume] in styleCode="Bold Karmen Blood by ">Monocyte Medical Automated count </content>8.2 Center %<content styleCode="Ital ics"> (3.0-10.0 %)</content> UNK 1.0-4.8 Below low normal <content [facility] styleCode="Bold Karmen ">Lymphocyte Medical Count Center </content>0.84 KCUMM L<content styleCode="Ital ics"> (1.0-4.8 KCUMM)</content > UNK 0.2-0.9 <content [facility] styleCode="Bold Karmen ">Monocyte Medical Count Center </content>0.44 KCUMM<content styleCode="Ital ics"> (0.2-0.9 KCUMM)</content > Eosinophils 0-5.0 <content Saint [#/volume] in styleCode="Bold Karmen Blood by ">Eosinophil Medical Automated count </content>4.1 Center %<content styleCode="Ital ics"> (0-5.0 %)</content> UNK 0.0-0.6 <content Saint styleCode="Bold Karmen ">Eosinophil Medical Count Center </content>0.22 KCUMM<content styleCode="Ital ics"> (0.0-0.6 KCUMM)</content > Basophils 0.0-1.0 <content Saint [#/volume] in styleCode="Bold Karmen Blood by ">Basophil Medical Automated count </content>0.6 Center %<content styleCode="Ital ics"> (0.0-1.0 %)</content> UNK 0.0-0.3 <content Saint styleCode="Bold Karmen ">Basophil Medical Count Center </content>0.03 KCUMM<content styleCode="Ital ics"> (0.0-0.3 KCUMM)</content > UNK 0 <content Saint styleCode="Bold Karmen ">Nucleated Red Medical Blood Cell Center </content>0.0 /100<content styleCode="Ital ics"> (0 /100)</content> UNK 0.0 <content Saint styleCode="Bold Karmen ">Nucleated Red Medical Blood Cell Center Count </content>0.00 KCUMM<content styleCode="Ital ics"> (0.0 KCUMM)</content > UNK 0-0.1 <content Saint styleCode="Bold Karmen ">Immature Medical Granulocyte Center Count </content>0.01 KCUMM<content styleCode="Ital ics"> (0-0.1 KCUMM)</content > UNK < 1 <content Saint styleCode="Bold Karmen ">Immature Medical Granulocyte Center Ratio </content>0.2 %<content styleCode="Ital ics"> (< 1 %)</content> ID Date Data Source GFR(Creatinine).[id number] 11/04/2019 06:07:[address] [facility] 0-0400 Name Value Range Interpretation Code Description Data Kimberly rce(s) Supporting Document(s ) UNK > 60 Below low normal <content [facility] styleCode="Bold"> Medical Cent er EGFR </content>29 GFR L<content styleCode="Italic s"> (> 60 GFR)</content> ID Date Data Source Coagulation 11/04/2019 06:07:00 AM [facility] Rout.[id number] EDT Name Value Range Interpretation Description Data Sup porting Code Source(s) Document(s ) UNK 9.0-13.0 Above high normal <content Saint styleCode="Bold" Karmen >Protime Medical </content>13.7 Center SEC H<content styleCode="Itali cs"> (9.0-13.0 SEC)</content> aPTT in 25.1-36. <content Saint Platelet poor 5 styleCode="Bold" [facility] plasma by >Partial Medical Coagulation Thromboplastin Center assay Time </content>34.9 SEC<content styleCode="Itali cs"> (25.1-36.5 SEC)</content> INR in 0.80-1.2 Above high normal <content Saint Platelet poor 0 styleCode="Bold" [facility] plasma by >INR Medical Coagulation </content>1.23 # Center assay H<content styleCode="Itali cs"> (0.80-1.20 #)</content> ID Date Data Source CHMROUTINECCDA.[id number] 11/04/2019 06:07:00 AM [facility] Name Value Range Interpretation Description Data Sup porting Code Source(s) Document(s ) UNK 2.3-3.5 <content Saint styleCode="Jonny Karmen d">Globulin Medical </content>2.4 Center G/DL<content styleCode="Lesli lics"> (2.3-3.5 G/DL)</content > UNK >= 1.0 <content [facility] styleCode="Jonny Karmen d">AG Ratio Medical </content>1.1 Center <content styleCode="Lesli lics"> (>= 1.0 )</content> Phosphate 2.5-4.5 <content [facility] [Mass/volume] styleCode="Jonny Karmen in Serum or d">Phosphorus Medical Plasma </content>4.5 Center MG/DL<content styleCode="Lesli lics"> (2.5-4.5 MG/DL)</conten t> UNK 4.2-5.8 Above high normal <content [facility] styleCode="Jonny Karmen d">Hemoglobin Medical A1C Center </content>6.9 % H<content styleCode="Lesli lics"> (4.2-5.8 %)</content> Magnesium 1.6-2.3 <content [facility] [Mass/volume] styleCode="Jonny Karmen in Serum or d">Magnesium Medical Plasma </content>1.8 Center MG/DL<content styleCode="Lesli lics"> (1.6-2.3 MG/DL)</conten t> Protein 6.3-8.2 Below low normal <content [facility] [Mass/volume] styleCode="Jonny Karmen in Serum or d">Total Medical Plasma Protein Center </content>5.0 G/DL L<content styleCode="Lesli lics"> (6.3-8.2 G/DL)</content > ID Date Data Source CardiacMarkers.[id number] 11/04/2019 06:07:00 AM EDT [facility] -0400 Name Value Range Interpretation Description Data Sup porting Code Source(s) Document(s ) Troponin < 0.034 <content Saint I.cardiac styleCode="Bold Karmen [Mass/volume ">Troponin I Medical ] in Serum </content>0.023 Center or Plasma NG/ML<content styleCode="Ital ics"> (< 0.034 NG/ML)</content > ID Date Data Source [facility].[id number] 11/04/2019 06:07:00 AM EDT [facility] Name Value Range Interpretation Description Data Sup porting Code Source(s) Document(s ) Sodium 137-145 <content Saint [Moles/volume] in styleCode="Bold"> [facility] Serum or Plasma Sodium Medical </content>138 Center MEQ/L<content styleCode="Italic s"> (137-145 MEQ/L)</content> Chloride 98-107 Above high <content Saint [Moles/volume] in normal styleCode="Bold"> [facility] Serum or Plasma Chloride Medical </content>112 Center MEQ/L H<content styleCode="Italic s"> (98-107 MEQ/L)</content> Potassium 3.5-5.3 Below lower <content [facility] [Moles/volume] in panic limits styleCode="Bold"> [facility] Serum or Plasma Potassium Medical </content><conten Center t styleCode="Bold"> 2.9 MEQ/L LL</content><cont ent styleCode="Italic s"> (3.5-5.3 MEQ/L)</content> Carbon dioxide, 22-30 <content Saint total styleCode="Bold"> Karmen [Moles/volume] in Carbon Dioxide Medical Serum or Plasma </content>23 Center MEQ/L<content styleCode="Italic s"> (22-30 MEQ/L)</content> UNK 9-20 Above high <content [facility] normal styleCode="Bold"> Karmen BUN </content>26 Medical MG/DL H<content Center styleCode="Italic s"> (9-20 MG/DL)</content> Glucose 74-106 Above high <content Saint [Mass/volume] in normal styleCode="Bold"> Conrad hs Serum or Plasma Glucose Medical </content>164 Center MG/DL H<content styleCode="Italic s"> (74-106 MG/DL)</content> Calcium 8.4-10. Below low <content [facility] [Mass/volume] in 2 normal styleCode="Bold"> Conrad hs Serum or Plasma Calcium Medical </content>7.9 Center MG/DL L<content styleCode="Italic s"> (8.4-10.2 MG/DL)</content> Creatinine 0.5-1.3 Above high <content [facility] [Mass/volume] in normal styleCode="Bold"> Conrad hs Serum or Plasma Creatinine Medical </content>2.5 Center MG/DL H<content styleCode="Italic s"> (0.5-1.3 MG/DL)</content> Aspartate 17-59 <content [facility] aminotransferase styleCode="Bold"> Conrad hs [Enzymatic Aspartate Medical activity/volume] Aminotransferase Center in Serum or Plasma (AST) </content>20 IU/L<content styleCode="Italic s"> (17-59 IU/L)</content> Alanine 7-50 <content [facility] aminotransferase styleCode="Bold"> Conrad hs [Enzymatic Alanine Medical activity/volume] Aminotransferase Center in Serum or Plasma (ALT) </content>16 IU/L<content styleCode="Italic s"> (7-50 IU/L)</content> UNK > 60 Below low <content [facility] normal styleCode="Bold"> Karmen EGFR </content>29 Medical GFR L<content Center styleCode="Italic s"> (> 60 GFR)</content> Alkaline 38-126 <content [facility] phosphatase styleCode="Bold"> Karmen [Enzymatic Alkaline Medical activity/volume] Phosphatase (ALP) Cente r in Serum or Plasma </content>92 IU/L<content styleCode="Italic s"> (38-126 IU/L)</content> Bilirubin.total 0.2-1.3 Below low <content [facility] [Mass/volume] in normal styleCode="Bold"> Conrad hs Serum or Plasma Bilirubin Total Medical </content>< 0.2 Center MG/DL L<content styleCode="Italic s"> (0.2-1.3 MG/DL)</content> Albumin 3.5-5.0 Below low <content [facility] [Mass/volume] in normal styleCode="Bold"> Conrad hs Serum or Plasma Albumin Medical </content>2.6 Center G/DL L<content styleCode="Italic s"> (3.5-5.0 G/DL)</content> ID Date Data Source Microbiology.[id number] 11/03/2019 08:30:[address] [facility] 400 Name Value Range Interpretation Code Description Data Kimberly rce(s) Supporting Document(s ) UNK <item><content [facility] styleCode="Bold"> Medical Cent er Culture Report </content>
<t able><tbody><tr>< td>Specimen Number:</td><td>[id number]</td></tr ><tr><td>Sample Collection Date/Time: </td><td> 0 8:30 PM</td></tr><tr>< td>Specimen Source:</td><td>B LOOD</td></tr><tr ><td>Blood Culture:</td><td> Collection Plate Date: 11/03/2019 20:37 </td></tr><tr><td >Culture Status:</td><td>P reliminary </td></tr><tr><td >Culture Report:</td><td>C ulture in progress </td></tr></tbody ></table></item> UNK <item><content [facility] styleCode="Bold"> Medical Cent er Culture Status </content>
<t able><tbody><tr>< td>Specimen Number:</td><td>[id number]</td></tr ><tr><td>Sample Collection Date/Time: </td><td> 0 8:30 PM</td></tr><tr>< td>Specimen Source:</td><td>B LOOD</td></tr><tr ><td>Culture Report:</td><td>C ulture in progress </td></tr><tr><td >Culture Status:</td><td>P reliminary </td></tr><tr><td >Blood Culture:</td><td> Collection Plate Date: 11/03/2019 20:37 </td></tr></tbody ></table></item> ID Date Data Source Microbiology.[id number] 11/03/2019 08:16:00 PM EDT [facility] 400 Name Value Range Interpretation Code Description Data Kimberly rce(s) Supporting Document(s ) UNK <item><content [facility] styleCode="Bold"> Medical Cent er Culture Report </content>
<t able><tbody><tr>< td>Specimen Number:</td><td>[id number]</td></tr ><tr><td>Sample Collection Date/Time: </td><td> 0 8:16 PM</td></tr><tr>< td>Specimen Source:</td><td>B LOOD</td></tr><tr ><td>Blood Culture:</td><td> Collection Plate Date: 11/03/2019 20:37 </td></tr><tr><td >Culture Status:</td><td>P reliminary </td></tr><tr><td >Culture Report:</td><td>C ulture in progress </td></tr></tbody ></table></item> UNK <item><content [facility] styleCode="Bold"> Medical Cent er Culture Status </content>
<t able><tbody><tr>< td>Specimen Number:</td><td>[id number]</td></tr ><tr><td>Sample Collection Date/Time: </td><td> 0 8:16 PM</td></tr><tr>< td>Specimen Source:</td><td>B LOOD</td></tr><tr ><td>Culture Report:</td><td>C ulture in progress </td></tr><tr><td >Culture Status:</td><td>P reliminary </td></tr><tr><td >Blood Culture:</td><td> Collection Plate Date: 11/03/2019 20:37 </td></tr></tbody ></table></item> ID Date Data Source LIPID.[id number] 11/03/2019 02:55:00 PM EDT [facility] Name Value Range Interpretation Description Data Sup porting Code Source(s) Document(s ) Cholesterol -<200 Above high normal <content Saint [Mass/volume] in styleCode="Jonny Karmen Serum or Plasma d">Cholesterol Medical </content>209 Center MG/DL H<content styleCode="Lesli lics"> (-<200 MG/DL)</conten t> Triglyceride < 150 <content [facility] [Mass/volume] in styleCode="Jonny Karmen Serum or Plasma d">Triglycerid Medical es Center </content>97 MG/DL<content styleCode="Lesli lics"> (< 150 MG/DL)</conten t> UNK > 60 <content Saint styleCode="Jonny Karmen d">HDL- Medical Cholesterol Center </content>87 MG/DL<content styleCode="Lesli lics"> (> 60 MG/DL)</conten t> UNK < 100 Above high normal <content Saint styleCode="Jonny Karmen d">LDL-Cholest Medical susan Center </content>103 MG/DL H<content styleCode="Lesli lics"> (< 100 MG/DL)</conten t> ID Date Data Source HematologyRou.[id number] 11/03/2019 02:55:00 PM EDT [facility] 0400 Name Value Range Interpretation Description Data Sup porting Code Source(s) Document(s ) Hemoglobin 13.5-17. Below low normal <content [facility] [Mass/volume] in 5 styleCode="Bold Karmen Blood ">Hemoglobin Medical </content>9.1 Center G/DL L<content styleCode="Ital ics"> (13.5-17.5 G/DL)</content> Erythrocytes 4.4-5.9 Below low normal <content Saint [#/volume] in styleCode="Bold Karmen Blood by ">Red Blood Medical Automated count Cell Count Center </content>3.37 MCUMM L<content styleCode="Ital ics"> (4.4-5.9 MCUMM)</content > Leukocytes 4.4-11.0 <content [facility] [#/volume] in styleCode="Bold Karmen Blood by ">White Blood Medical Automated count Cell Count Center </content>5.60 KCUMM<content styleCode="Ital ics"> (4.4-11.0 KCUMM)</content > Hematocrit 41.0-53. Below low normal <content [facility] [Volume 0 styleCode="Bold Karmen Fraction] of ">Hematocrit Medical Blood by </content>28.6 Center Automated count % L<content styleCode="Ital ics"> (41.0-53.0 %)</content> Erythrocyte mean 80.0-100 <content [facility] corpuscular .0 styleCode="Bold Karmen volume [Entitic ">Mean Medical volume] by Corpuscular Center Automated count Volume </content>84.9 FL<content styleCode="Ital ics"> (80.0-100.0 FL)</content> Erythrocyte mean 26.0-34. <content [facility] corpuscular 0 styleCode="Bold Karmen hemoglobin ">Mean Medical [Entitic mass] Corposcular Center by Automated Hemoglobin count </content>27.0 PG<content styleCode="Ital ics"> (26.0-34.0 PG)</content> Platelets 130-400 <content Saint [#/volume] in styleCode="Bold Karmen Blood by ">Platelet Medical Automated count Count Center </content>240 KCUMM<content styleCode="Ital ics"> (130-400 KCUMM)</content > Erythrocyte 11.5-14. <content [facility] distribution 5 styleCode="Bold Karmen width [Ratio] by ">Red Cell Medical Automated count Distribution Center Width </content>13.7 %<content styleCode="Ital ics"> (11.5-14.5 %)</content> Erythrocyte mean 32.0-37. Below low normal <content [facility] corpuscular 0 styleCode="Bold Karmen hemoglobin ">Mean Corpus. Medical concentration Hgb Center [Mass/volume] by Concentration Automated count (MCHC) </content>31.8 G/DL L<content styleCode="Ital ics"> (32.0-37.0 G/DL)</content> UNK 0 <content Saint styleCode="Bold Karmen ">Nucleated Red Medical Blood Cell Center </content>0.0 /100<content styleCode="Ital ics"> (0 /100)</content> UNK 0.0 <content Saint styleCode="Bold Karmen ">Nucleated Red Medical Blood Cell Center Count </content>0.00 KCUMM<content styleCode="Ital ics"> (0.0 KCUMM)</content > Platelet mean 8.0-11.0 <content [facility] volume [Entitic styleCode="Bold Karmen volume] in Blood ">Mean Platelet Medical by Automated Volume Center count </content>10.3 FL<content styleCode="Ital ics"> (8.0-11.0 FL)</content> ID Date Data Source GFR(Creatinine).[id number] 11/03/2019 02:55:00 PM EDT [facility] 0-0400 Name Value Range Interpretation Code Description Data Kimberly rce(s) Supporting Document(s ) UNK > 60 Below low normal <content [facility] styleCode="Bold"> Medical Cent er EGFR </content>30 GFR L<content styleCode="Italic s"> (> 60 GFR)</content> ID Date Data Source Coagulation 11/03/2019 02:55:00 PM [facility] ical Center Rout.[id number] EDT Name Value Range Interpretation Description Data Sup porting Code Source(s) Document(s ) INR in 0.80-1.2 <content [facility] Platelet poor 0 styleCode="Bold" Karmen plasma by >INR Medical Coagulation </content>1.16 Center assay #<content styleCode="Itali cs"> (0.80-1.20 #)</content> UNK 9.0-13.0 <content Saint styleCode="Bold" Karmen >Protime Medical </content>12.9 Center SEC<content styleCode="Itali cs"> (9.0-13.0 SEC)</content> aPTT in 25.1-36. Above high normal <content [facility] Platelet poor 5 styleCode="Bold" Karmen plasma by >Partial Medical Coagulation Thromboplastin Center assay Time </content>40.3 SEC H<content styleCode="Itali cs"> (25.1-36.5 SEC)</content> ID Date Data Source CHMROUTINECCDA.[id number] 11/03/2019 02:55:00 PM EDT [facility] -0400 Name Value Range Interpretation Description Data Sup porting Code Source(s) Document(s ) Natriuretic < 125 Above high normal <content Saint peptide.B styleCode="Jonny Karmen prohormone d">NT Pro BNP Medical N-Terminal </content>1610 Center [Mass/volume] 0 PG/ML in Serum or H<content Plasma styleCode="Lesli lics"> (< 125 PG/ML)</conten t> ID Date Data Source CardiacMarkers.[id number] 11/03/2019 02:55:00 PM [facility] Name Value Range Interpretation Description Data Sup porting Code Source(s) Document(s ) Troponin < 0.034 <content [facility] I.cardiac styleCode="Bold Karmen [Mass/volume ">Troponin I Medical ] in Serum </content>0.021 Center or Plasma NG/ML<content styleCode="Ital ics"> (< 0.034 NG/ML)</content > ID Date Data Source BMP.[id number] 11/03/2019 02:55:00 PM EDT [facility] Name Value Range Interpretation Description Data Sup porting Code Source(s) Document(s ) Potassium 3.5-5.3 Below low normal <content Saint [Moles/volume] styleCode="Jonny Karmen in Serum or d">Potassium Medical Plasma </content>3.4 Center MEQ/L L<content styleCode="Lesli lics"> (3.5-5.3 MEQ/L)</conten t> Chloride 98-107 Above high normal <content Saint [Moles/volume] styleCode="Jonny Karmen in Serum or d">Chloride Medical Plasma </content>110 Center MEQ/L H<content styleCode="Lesli lics"> (98-107 MEQ/L)</conten t> Sodium 137-145 <content [facility] [Moles/volume] styleCode="Jonny Karmen in Serum or d">Sodium Medical Plasma </content>140 Center MEQ/L<content styleCode="Lesli lics"> (137-145 MEQ/L)</conten t> UNK 9-20 Above high normal <content [facility] styleCode="Jonny Karmen d">BUN Medical </content>28 Center MG/DL H<content styleCode="Lesli lics"> (9-20 MG/DL)</conten t> Carbon 22-30 <content Saint dioxide, total styleCode="Jonny Loves [Moles/volume] d">Carbon Medical in Serum or Dioxide Center Plasma </content>24 MEQ/L<content styleCode="Lesli lics"> (22-30 MEQ/L)</conten t> Creatinine 0.5-1.3 Above high normal <content [facility] [Mass/volume] styleCode="Jonny Karmen in Serum or d">Creatinine Medical Plasma </content>2.4 Center MG/DL H<content styleCode="Lesli lics"> (0.5-1.3 MG/DL)</conten t> Glucose 74-106 Above high normal <content [facility] [Mass/volume] styleCode="Jonny Karmen in Serum or d">Glucose Medical Plasma </content>152 Center MG/DL H<content styleCode="Lesli lics"> (74-106 MG/DL)</conten t> Calcium 8.4-10.2 <content [facility] [Mass/volume] styleCode="Jonny Karmen in Serum or d">Calcium Medical Plasma </content>8.5 Center MG/DL<content styleCode="Lesli lics"> (8.4-10.2 MG/DL)</conten t> UNK > 60 Below low normal <content [facility] styleCode="Jonny Karmen d">EGFR Medical </content>30 Center GFR L<content styleCode="Lesli lics"> (> 60 GFR)</content> ID Date Data Source [id number] 11/03/2019 12:00:00 AM EDT [facility] Name Value Range Interpretation Code Description Data Kimberly rce(s) Supporting Document(s ) 2019-nCoV [facility] RNA XXX REBEKA+probe- Imp This lab was ordered by [facility] and reported by [employer] [facility]. ID Date Data Source [id number] 10/16/2019 12:00:00 AM EDT [facility] ([facility], ) Name Value Range Interpretation Code Description Data Kimberly rce(s) Supporting Document(s ) ID Date Data Source [id number] 10/16/2019 12:00:00 AM EDT [facility] ([facility] Name Value Range Interpretation Code Description Data Kimberly rce(s) Supporting Document(s ) PDF . Normal (applies to [facility] ([facility] non-numeric results) [facility]) ID Date Data Source [id number] 10/16/2019 12:00:00 AM EDT [facility] ([facility] Name Value Range Interpretation Code Description Data Supporting Source(s) Document(s ) PTH, Intact 83 pg/mL Above high normal [facility] ([facility]) ID Date Data Source [id number] 10/16/2019 12:00:00 AM EDT [facility] ([facility] Name Value Range Interpretation Code Description Data Supporting Source(s) Document(s ) HBsAg Negative Normal (applies to [facility] (St Screen non-numeric [facility]) [facility]) ID Date Data Source [id number] 10/16/2019 12:00:00 AM EDT [facility] ([facility] Name Value Range Interpretation Code Description Data Supporting Source(s) Document(s ) Ferritin, 133 ng/mL Normal (applies to [facility] (St Serum non-numeric [facility]) [facility]) ID Date Data Source [id number] 10/16/2019 12:00:00 AM EDT [facility] ([facility] Name Value Range Interpretation Code Description Data Supporting Source(s) Document(s ) JAMAR Direct Negative Normal (applies to [facility] (St non-numeric [facility]) [facility]) ID Date Data Source [id number] 10/16/2019 12:00:00 AM EDT [facility] ([facility] Name Value Range Interpretation Description Data Sup porting Code Source(s) Document(s ) Deprecated 4.0 mg/dL Normal (applies to [facility] (St Phosphorus non-numeric [facility] [Mass/time] in results) [facility], [facility]) 24 hour Urine ID Date Data Source [id number] 10/16/2019 12:00:00 AM EDT [facility] ([facility] Name Value Range Interpretation Code Description Data Kimberly rce(s) Supporting Document(s ) Comment: Normal (applies to [facility] (St non-numeric results) [facility]) ID Date Data Source [id number] 10/16/2019 12:00:00 AM EDT [facility] ([facility] Name Value Range Interpretation Code Description Data Kimberly rce(s) Supporting Document(s ) HCV Ab <0.1 Normal (applies to [facility] (St non-numeric results) [facility]) ID Date Data Source [id number] 10/16/2019 12:00:00 AM EDT [facility] ([facility] Name Value Range Interpretation Code Description Data Kimberly rce(s) Supporting Document(s ) Anti-PLA2R <1.8 Normal (applies to [facility] (St non-numeric results) [facility]) ID Date Data Source [id number] 10/16/2019 12:00:00 AM EDT [facility] ([facility] Name Value Range Interpretation Code Description Data Kimberly rce(s) Supporting Document(s ) JERMAINE Normal (applies to [facility] (St Interpreta non-numeric results) [facility], tion:U PC) ID Date Data Source [id number] 10/16/2019 12:00:00 AM EDT [facility] ([facility] Name Value Range Interpretation Code Description Data Kimberly rce(s) Supporting Document(s ) Anti-DNA 1 IU/mL Normal (applies to [facility] (St (DS) Ab Qn non-numeric [facility]) [facility]) ID Date Data Source [id number] 10/16/2019 12:00:00 AM EDT [facility] ([facility] Name Value Range Interpretation Description Data Sup porting Code Source(s) Document(s ) HIV Screen Non Normal (applies [facility] (St 4th Reactive to non-numeric [facility] Generation results) [facility], [facility]) wRfx ID Date Data Source [id number] 10/16/2019 12:00:00 AM EDT [facility] ([facility] Name Value Range Interpretation Description Data Sup porting Code Source(s) Document(s ) Vitamin D, 8.0 ng/mL Below low normal [facility] (St 25-Hydroxy [facility]) ID Date Data Source [id number] 10/16/2019 12:00:00 AM EDT [facility] ([facility] Name Value Range Interpretation Code Description Data Kimberly rce(s) Supporting Document(s ) RA Latex <10.0 Normal (applies to [facility] (St Turbid. non-numeric results) [facility], ) ID Date Data Source [id number] 10/16/2019 12:00:00 AM EDT [facility] ([facility] Name Value Range Interpretation Description Data Sup porting Code Source(s) Document(s ) Complement C3, 117 mg/dL Normal (applies to [facility] (St Serum non-numeric [facility] results) [facility], ) ID Date Data Source [id number] 10/16/2019 12:00:00 AM EDT [facility] ([facility] Name Value Range Interpretation Description Data Sup porting Code Source(s) Document(s ) Hep B Non Reactive Normal (applies to [facility] ( St Surface Ab, non-numeric [facility] Qual results) [facility], ) ID Date Data Source [id number] 10/16/2019 12:00:00 AM EDT [facility] ([facility] Name Value Range Interpretation Description Data Sup porting Code Source(s) Document(s ) Complement C4, 33 mg/dL Normal (applies to [facility] (St Serum non-numeric [facility] results) [facility], ) ID Date Data Source [id number] 10/16/2019 12:00:00 AM EDT [facility] ([facility] Name Value Range Interpretation Description Data Sup porting Code Source(s) Document(s ) Hemoglobin A1c 6.7 % Above high normal [facility] (St in Blood [facility], ) ID Date Data Source [id number] 10/16/2019 12:00:00 AM EDT [facility] ([facility] Name Value Range Interpretation Code Description Data Kimberly rce(s) Supporting Document(s ) Normetane 256.1 Above high normal [facility] (St phrine, pg/mL [facility], ) Metanephr 144.2 Above high normal [facility] (St ine, Pl pg/mL [facility], ) ID Date Data Source [id number] 10/16/2019 12:00:00 AM EDT [facility] ([facility], ) Name Value Range Interpretation Code Description Data Supporting Source(s) Document(s ) Albumin, 4217.2 Normal (applies to [facility] (St Urine ug/mL non-numeric [facility] results) [facility], ) Alb/Creat 2707 mg/g Above high normal [facility] (St Ratio creat [facility], ) ID Date Data Source [id number] 10/16/2019 12:00:00 AM EDT [facility] ([facility], ) Name Value Range Interpretation Description Data Sup porting Code Source(s) Document(s ) Free [place] 593.88 Above high normal [facility] (St Lt mg/L [facility] [place],Ur [facility], ) Free Lambda 130.75 Above high normal [facility] (St Lt mg/L [facility], ) [place]/Lambd 4.54 Normal (applies to [facility] (S t a Ratio,U non-numeric [facility] results) [facility], ) ID Date Data Source [id number] 10/16/2019 12:00:00 AM EDT [facility] ([facility], ) Name Value Range Interpretation Description Data Sup porting Code Source(s) Document(s ) Free [place] 57.8 mg/L Above high normal [facility] (St Lt Chains,S [facility], ) Free Lambda 27.9 mg/L Above high normal [facility] (St Lt Chains,S [facility], ) [place]/Lambd 2.07 Above high normal [facility] (St a Ratio,S [facility], ) ID Date Data Source [id number] 10/16/2019 12:00:00 AM EDT [facility] ([facility], ) Name Value Range Interpretation Description Data Sup porting Code Source(s) Document(s ) Aldosterone <1.0 Normal (applies [facility] (St [Molar amount] to non-numeric [facility] in Urine results) [facility], ) collected for unspecified duration Renin 0.178 Normal (applies [facility] (St [Enzymatic ng/mL/hr to non-numeric [facility] activity/volume results) [facility], ) ] in Plasma Aldos/Renin <5.6 Normal (applies [facility] (St Ratio to non-numeric [facility] results) [facility], ) ID Date Data Source [id number] 10/16/2019 12:00:00 AM EDT [facility] ([facility], ) Name Value Range Interpretation Code Description Data Supporting Source(s) Document(s ) Creatinine 155.8 Normal (applies to [facility] (St , Urine mg/dL non-numeric [facility] results) [facility], ) Protein/Cr 3963 mg/g Above high normal [facility] (St eat Ratio creat [facility], ) ID Date Data Source [id number] 10/16/2019 12:00:00 AM EDT [facility] ([facility], ) Name Value Range Interpretation Description Data Sup porting Code Source(s) Document(s ) Immunofixation Normal (applies [facility] (S t Result, Serum to non-numeric [facility] results) [facility], ) Immunoglobulin G, 851 Normal (applies [facility] (St Qn, Serum mg/dL to non-numeric [facility] results) [facility], ) Immunoglobulin A, 124 Normal (applies [facility] (St Qn, Serum mg/dL to non-numeric [facility] results) [facility], ) Immunoglobulin M, 30 mg/dL Normal (applies [facility] (St Qn, Serum to non-numeric [facility] results) [facility], ) ID Date Data Source [id number] 10/16/2019 12:00:00 AM EDT [facility] ([facility], ) Name Value Range Interpretation Description Data Sup porting Code Source(s) Document(s ) Iron 228 ug/dL Below low normal [facility] (St Bind.Cap.(TIBC [facility] ) [facility], ) UIBC 191 ug/dL Normal (applies to [facility] (St non-numeric [facility] results) [facility], ) Iron 37 ug/dL Below low normal [facility] (St [Mass/volume] [facility] in Serum or Medical, ) Plasma Iron 16 % Normal (applies to [facility] (St saturation non-numeric [facility] [Mass results) [facility], ) Fraction] in Serum or Plasma ID Date Data Source [id number] 10/16/2019 12:00:00 AM EDT [facility] ([facility], ) Name Value Range Interpretation Description Data Sup porting Code Source(s) Document(s ) Protein,To 617.5 mg/dL Normal (applies to [facility] ( St alaina,Urine non-numeric [facility] results) [facility], PC) Albumin, U 77.5 % Normal (applies to [facility] (St non-numeric [facility] results) [facility], PC) Alpha-1-Gl 1.2 % Normal (applies to [facility] (St obulin, U non-numeric [facility] results) [facility], PC) Alpha-2-Gl 4.9 % Normal (applies to [facility] (St obulin, U non-numeric [facility] results) [facility], [facility]) Beta 10.1 % Normal (applies to [facility] (St Globulin, non-numeric [facility] U results) [facility], PC) Gamma 6.3 % Normal (applies to [facility] (St Globulin, non-numeric [facility] U results) [facility], PC) M-Porfirio, % Not Observed Normal (applies to [facility] (St non-numeric [facility] results) [facility], PC) Please Normal (applies to [facility] (St note: non-numeric [facility] results) [facility], [facility]) PDF . Normal (applies to [facility] (St non-numeric [facility] results) [facility], PC) ID Date Data Source [id number] 10/16/2019 12:00:00 AM EDT [facility] ([facility] ) Name Value Range Interpretation Description Data Sup porting Code Source(s) Document(s ) Microalbumin 3.1 g/dL Normal (applies [facility] (St [Mass/time] in to non-numeric [facility] Urine collected results) Medical, for unspecified PC) duration Pkltr-0-Jkkuuace 0.3 g/dL Normal (applies [facility] (St to non-numeric [facility] results) [facility], PC) Beta globulin 0.8 g/dL Normal (applies [facility] (St [Mass/volume] in to non-numeric [facility] Urine by results) Medical, Electrophoresis PC) Zimwh-2-Zckqyvbb 0.8 g/dL Normal (applies [facility] (St to non-numeric [facility] results) [facility], PC) Gamma globulin 0.7 g/dL Normal (applies [facility] (S t [Mass/volume] by to non-numeric [facility] Electrophoresis results) Medical, in Urine PC) collected for unspecified duration M-Porfirio Not Normal (applies [facility] (St Observed to non-numeric [facility] results) Medical, PC) Globulin, Total 2.6 g/dL Normal (applies [facility] ( St to non-numeric [facility] results) Medical, PC) A/G Ratio 1.2 Normal (applies [facility] (St to non-numeric [facility] results) Medical, PC) PDF . Normal (applies [facility] (St to non-numeric [facility] results) [facility], PC) Please note: Normal (applies [facility] (St to non-numeric [facility] results) [facility], PC) ID Date Data Source [id number] 10/16/2019 12:00:00 AM EDT [facility] ([facility] Name Value Range Interpretation Description Data Sup porting Code Source(s) Document(s ) Specific gravity 1.021 Normal (applies [facility] (St of Pericardial to non-numeric [facility] fluid by results) Medical, Refractometry PC) pH of Lower 5.0 Normal (applies [facility] (St respiratory to non-numeric [facility] specimen results) [facility], PC) Urine-Color Yellow Normal (applies [facility] (St to non-numeric [facility] results) [facility], PC) WBC Esterase Negative Normal (applies [facility] (St to non-numeric [facility] results) [facility], PC) Appearance of Clear Normal (applies [facility] (St Abdomen to non-numeric [facility] results) Medical, PC) Protein Abnormal [facility] (St [Mass/volume] in (applies to [facility] Lower non-numeric Medical, respiratory results) PC) specimen Glucose Abnormal [facility] (St [Mass/volume] in (applies to [facility] Urine collected non-numeric Medical, for unspecified results) PC) duration Occult Blood Negative Normal (applies [facility] (St to non-numeric [facility] results) Medical, PC) Ketones Negative Normal (applies [facility] (St [Presence] in to non-numeric [facility] Blood by Tablet results) Medical, PC) Bilirubin Negative Normal (applies [facility] (St [Presence] in to non-numeric [facility] Peritoneal fluid results) Medical, PC) Nitrite, Urine Negative Normal (applies [facility] (S t to non-numeric [facility] results) Medical, PC) Urobilinogen,Nani 0.2 mg/dL Normal (applies [facility] (St i-Qn to non-numeric [facility] results) Medical, PC) Microscopic See below: Normal (applies [facility] (St Examination to non-numeric [facility] results) [facility], PC) ID Date Data Source [id number] 10/16/2019 12:00:00 AM EDT [facility] ([facility] Name Value Range Interpretation Description Data Sup porting Code Source(s) Document(s ) WBC 0-5 Normal (applies to [facility] (St non-numeric [facility] results) Medical, ) RBC 0-2 Normal (applies to [facility] (St non-numeric [facility] results) Medical, ) Epithelial 0-10 Normal (applies to [facility] (St Cells (non non-numeric [facility] renal) results) Medical, ) Mucus Threads Present Normal (applies to [facility] (St non-numeric [facility] results) Medical, ) Bacteria Few Normal (applies to [facility] (St [Presence] in non-numeric [facility] Prostatic results) Medical, ) fluid by Light microscopy ID Date Data Source [id number] 10/16/2019 12:00:00 AM EDT [facility] ([facility] Name Value Range Interpretation Description Data Sup porting Code Source(s) Document(s ) Urea nitrogen 25 mg/dL Above high [facility] (St [Mass/volume] in normal [facility] Serum or Plasma Medical, ) Glucose 146 Above high [facility] (St [Mass/volume] in mg/dL normal [facility] Urine collected for Medical, unspecified PC) duration Creatinine 2.31 Above high [facility] (St [Interpretation] in mg/dL normal [facility] Urine Medical, ) eGFR If NonAfricn 31 Below low normal [facility] N (St Am mL/min/1 [facility] .73 [facility], ) BUN/Creatinine 11 Normal (applies [facility] (S t Ratio to non-numeric [facility] results) Medical, ) eGFR If Africn Am 36 Below low normal [facility] N (St mL/min/1 [facility] .73 [facility], ) Sodium 144 Normal (applies [facility] (St [Moles/volume] in mmol/L to non-numeric [facility] Serum or Plasma results) Medical, ) Chloride 112 Above high [facility] (St [Moles/volume] in mmol/L normal [facility] Serum or Plasma Medical, ) Potassium 3.7 Normal (applies [facility] (St [Mass/volume] in mmol/L to non-numeric [facility] Blood results) [facility], ) Carbon dioxide, 19 Below low normal [facility] (St total mmol/L [facility] [Moles/volume] in Medical, Serum or Plasma PC) Calcium 8.7 Normal (applies [facility] (St [Moles/volume] in mg/dL to non-numeric [facility] Urine collected for results) Medical, unspecified ) duration Protein 5.7 g/dL Below low normal [facility] (St [Mass/volume] in [facility] Serum or Plasma Medical, ) Microalbumin 3.6 g/dL Below low normal [facility] (St [Mass/time] in [facility] Urine collected for Medical, unspecified PC) duration Globulin, Total 2.1 g/dL Normal (applies [facility] ( St to non-numeric [facility] results) Medical, ) A/G Ratio 1.7 Normal (applies [facility] (St to non-numeric [facility] results) Medical, ) Bilirubin.total <0.2 Normal (applies [facility] ( St [Mass/volume] in to non-numeric [facility] Serum or Plasma results) Medical, ) Alkaline 140 IU/L Above high [facility] (St phosphatase normal [facility] [Enzymatic Medical, activity/volume] in PC) Serum, Plasma or Blood Aspartate 17 IU/L Normal (applies [facility] (St aminotransferase to non-numeric [facility] [Enzymatic results) Medical, activity/volume] in PC) Serum or Plasma Alanine 20 IU/L Normal (applies [facility] (St aminotransferase to non-numeric [facility] [Enzymatic results) Medical, activity/volume] in PC) Serum or Plasma ID Date Data Source [id number] 10/16/2019 12:00:00 AM EDT [facility] ([facility] Name Value Range Interpretation Description Data Sup porting Code Source(s) Document(s ) Leukocytes 8.0 Normal (applies [facility] (St [#/volume] in x10E3/uL to non-numeric [facility] Blood by results) Medical, ) Automated count Hemoglobin 9.2 g/dL Below low normal [facility] (St [Mass/volume] in [facility] Blood Medical, ) Erythrocytes 3.24 Below low normal [facility] (St [#/volume] in x10E6/uL [facility] Blood by Medical, ) Automated count Hematocrit 27.7 % Below low normal [facility] (St [Volume [facility] Fraction] of [facility], ) Blood by Automated count MCV 86 fL Normal (applies [facility] (St to non-numeric [facility] results) [facility], ) MCHC 33.2 Normal (applies [facility] (St g/dL to non-numeric [facility] results) [facility], ) MCH 28.4 pg Normal (applies [facility] (St to non-numeric [facility] results) [facility], ) RDW 13.5 % Normal (applies [facility] (St to non-numeric [facility] results) [facility], ) Platelets 330 Normal (applies [facility] (St [#/area] in x10E3/uL to non-numeric [facility] Blood by results) [facility], ) Microscopy high power field Neutrophils [#] 84 % Normal (applies [facility] ( St in Body fluid by to non-numeric [facility] Manual count results) [facility], ) Lymphs 10 % Normal (applies [facility] (St to non-numeric [facility] results) [facility], ) Eos 2 % Normal (applies [facility] (St to non-numeric [facility] results) [facility], ) Monocytes 4 % Normal (applies [facility] (St [#/volume] in to non-numeric [facility] Cord blood results) [facility], ) Basos 0 % Normal (applies [facility] (St to non-numeric [facility] results) [facility], ) Neutrophils 6.6 Normal (applies [facility] (St (Absolute) x10E3/uL to non-numeric [facility] results) [facility], ) Lymphs 0.8 Normal (applies [facility] (St (Absolute) x10E3/uL to non-numeric [facility] results) [facility], ) Monocytes(Absolu 0.4 Normal (applies [facility] (St te) x10E3/uL to non-numeric [facility] results) [facility], ) Eos (Absolute) 0.2 Normal (applies [facility] (S t x10E3/uL to non-numeric [facility] results) [facility], ) Baso (Absolute) 0.0 Normal (applies [facility] ( St x10E3/uL to non-numeric [facility] results) [facility], ) Immature 0 % Normal (applies [facility] (St Granulocytes to non-numeric [facility] results) [facility], ) Immature Grans 0.0 Normal (applies [facility] (S t (Abs) x10E3/uL to non-numeric [facility] results) Medical, ) ID Date Data Source [id number] 10/16/2019 12:00:00 AM EDT [facility] ([facility], ) Name Value Range Interpretation Description Data Sup porting Code Source(s) Document(s ) Antimyeloperoxidase <9.0 Normal (applies MEDG EN (St (MPO) Abs to non-numeric [facility] results) Medical, ) Antiproteinase 3 <3.5 Normal (applies [facility] (St (MD-3) Abs to non-numeric [facility] results) Medical, ) Cytoplasmic (C-ANCA) <1:20 Normal (applies MED GEN (St to non-numeric [facility] results) Medical, ) Perinuclear (P-ANCA) <1:20 Normal (applies MED GEN (St to non-numeric [facility] results) Medical, ) Atypical pANCA <1:20 Normal (applies [facility] (S t to non-numeric [facility] results) Medical, ) ID Date Data Source [id number] 10/16/2019 12:00:00 AM EDT [facility] ([facility], ) Name Value Range Interpretation Code Description Data Kimberly rce(s) Supporting Document(s ) ID Date Data Source [id number] 10/16/2019 12:00:00 AM EDT [facility] ([facility], ) Name Value Range Interpretation Code Description Data Kimberly rce(s) Supporting Document(s ) PDF . Normal (applies to [facility] (St non-numeric results) [facility], ) ID Date Data Source [id number] 10/16/2019 12:00:00 AM EDT [facility] ([facility], ) Name Value Range Interpretation Code Description Data Supporting Source(s) Document(s ) PTH, Intact 83 pg/mL Above high normal [facility] ([place], ) ID Date Data Source [id number] 10/16/2019 12:00:00 AM EDT [facility] ([facility], ) Name Value Range Interpretation Code Description Data Supporting Source(s) Document(s ) HBsAg Negative Normal (applies to [facility] (St Screen non-numeric [facility] results) Medical, ) ID Date Data Source [id number] 10/16/2019 12:00:00 AM EDT [facility] ([facility]) Name Value Range Interpretation Code Description Data Supporting Source(s) Document(s ) Ferritin, 133 ng/mL Normal (applies to [facility] (St Serum non-numeric [facility] results) Medical, ) ID Date Data Source [id number] 10/16/2019 12:00:00 AM EDT [facility] ([facility]) Name Value Range Interpretation Code Description Data Supporting Source(s) Document(s ) JAMAR Direct Negative Normal (applies to [facility] (St non-numeric [facility] results) Medical, ) ID Date Data Source [id number] 10/16/2019 12:00:00 AM EDT [facility] ([facility]) Name Value Range Interpretation Description Data Sup porting Code Source(s) Document(s ) Deprecated 4.0 mg/dL Normal (applies to [facility] (St Phosphorus non-numeric [facility] [Mass/time] in results) Medical, ) 24 hour Urine ID Date Data Source [id number] 10/16/2019 12:00:00 AM EDT [facility] ([facility]) Name Value Range Interpretation Code Description Data Kimberly rce(s) Supporting Document(s ) Comment: Normal (applies to [facility] (St non-numeric results) [facility], [facility]) ID Date Data Source [id number] 10/16/2019 12:00:00 AM EDT [facility] ([facility]) Name Value Range Interpretation Code Description Data Kimberly rce(s) Supporting Document(s ) HCV Ab <0.1 Normal (applies to [facility] (St non-numeric results) [facility], [facility]) ID Date Data Source [id number] 10/16/2019 12:00:00 AM EDT [facility] ([facility]) Name Value Range Interpretation Code Description Data Kimberly rce(s) Supporting Document(s ) Anti-PLA2R <1.8 Normal (applies to [facility] (St non-numeric results) [facility]) ID Date Data Source [id number] 10/16/2019 12:00:00 AM EDT [facility] ([facility]) Name Value Range Interpretation Code Description Data Kimberly rce(s) Supporting Document(s ) JERMAINE Normal (applies to [facility] (St Interpreta non-numeric results) [facility], tion:U PC) ID Date Data Source [id number] 10/16/2019 12:00:00 AM EDT MED[facility] ([facility], ) Name Value Range Interpretation Code Description Data Kimberly rce(s) Supporting Document(s ) Anti-DNA 1 IU/mL Normal (applies to MEDGEN (St (DS) Ab Qn non-numeric [facility] results) [facility], ) ID Date Data Source [id number] 10/16/2019 12:00:00 AM EDT MED[facility] ([facility], ) Name Value Range Interpretation Description Data Sup porting Code Source(s) Document(s ) HIV Screen Non Normal (applies MEDGEN (St 4th Reactive to non-numeric [facility] Generation results) [facility], ) wRfx ID Date Data Source [id number] 10/16/2019 12:00:00 AM EDT MED[facility] ([facility], ) Name Value Range Interpretation Description Data Sup porting Code Source(s) Document(s ) Vitamin D, 8.0 ng/mL Below low normal MEDGEN (St 25-Hydroxy [facility], ) ID Date Data Source [id number] 10/16/2019 12:00:00 AM EDT MED[facility] ([facility], ) Name Value Range Interpretation Code Description Data Kimberly rce(s) Supporting Document(s ) RA Latex <10.0 Normal (applies to MEDGEN (St Turbid. non-numeric results) [facility], ) ID Date Data Source [id number] 10/16/2019 12:00:00 AM EDT MED[facility] ([facility], ) Name Value Range Interpretation Description Data Sup porting Code Source(s) Document(s ) Antimyeloperoxidase <9.0 Normal (applies MEDG EN (St (MPO) Abs to non-numeric [facility] results) Medical, ) Antiproteinase 3 <3.5 Normal (applies MEDGEN (St (MD-3) Abs to non-numeric [facility] results) Medical, ) Cytoplasmic (C-ANCA) <1:20 Normal (applies MED GEN (St to non-numeric [facility] results) [facility], ) Perinuclear (P-ANCA) <1:20 Normal (applies MED GEN (St to non-numeric [facility] results) Medical, PC) Atypical pANCA <1:20 Normal (applies MEDGEN (S t to non-numeric [facility] results) [facility], PC) ID Date Data Source [id number] 10/16/2019 12:00:00 AM EDT [facility] ([facility]) Name Value Range Interpretation Code Description Data Kimberly rce(s) Supporting Document(s ) ID Date Data Source [id number] 10/16/2019 12:00:00 AM EDT [facility] ([facility]) Name Value Range Interpretation Code Description Data Kimberly rce(s) Supporting Document(s ) PDF . Normal (applies to MEDGEN (St non-numeric results) [facility], [facility]) ID Date Data Source [id number] 10/16/2019 12:00:00 AM EDT [facility] ([facility]) Name Value Range Interpretation Code Description Data Supporting Source(s) Document(s ) PTH, Intact 83 pg/mL Above high normal [facility] ([facility]) ID Date Data Source [id number] 10/16/2019 12:00:00 AM EDT [facility] ([facility]) Name Value Range Interpretation Code Description Data Supporting Source(s) Document(s ) HBsAg Negative Normal (applies to MEDGEN (St Screen non-numeric [facility] results) [facility], PC) ID Date Data Source [id number] 10/16/2019 12:00:00 AM EDT [facility] ([facility]) Name Value Range Interpretation Code Description Data Supporting Source(s) Document(s ) Ferritin, 133 ng/mL Normal (applies to [facility]GEN (St Serum non-numeric [facility] results) [facility], PC) ID Date Data Source [id number] 10/16/2019 12:00:00 AM EDT [facility] ([facility]) Name Value Range Interpretation Code Description Data Supporting Source(s) Document(s ) JAMAR Direct Negative Normal (applies to [facility] (St non-numeric [facility] results) [facility], PC) ID Date Data Source [id number] 10/16/2019 12:00:00 AM EDT [facility] ([facility]) Name Value Range Interpretation Description Data Sup porting Code Source(s) Document(s ) Deprecated 4.0 mg/dL Normal (applies to MEDGEN (St Phosphorus non-numeric [facility] [Mass/time] in results) Medical, PC) 24 hour Urine ID Date Data Source [id number] 10/16/2019 12:00:00 AM EDT [facility] ([facility]) Name Value Range Interpretation Code Description Data Kimberly rce(s) Supporting Document(s ) Comment: Normal (applies to [facility]GEN (St non-numeric results) [facility]) ID Date Data Source [id number] 10/16/2019 12:00:00 AM EDT [facility] ([facility] Name Value Range Interpretation Code Description Data Kimberly rce(s) Supporting Document(s ) HCV Ab <0.1 Normal (applies to [facility] (St non-numeric results) [facility], [facility]) ID Date Data Source [id number] 10/16/2019 12:00:00 AM EDT [facility] ([facility]) Name Value Range Interpretation Code Description Data Kimberly rce(s) Supporting Document(s ) Anti-PLA2R <1.8 Normal (applies to [facility] (St non-numeric results) [facility], [facility]) ID Date Data Source [id number] 10/16/2019 12:00:00 AM EDT [facility] ([facility]) Name Value Range Interpretation Code Description Data Kimberly rce(s) Supporting Document(s ) JERMAINE Normal (applies to MEDGEN (St Interpreta non-numeric results) [facility], tion:U PC) ID Date Data Source [id number] 10/16/2019 12:00:00 AM EDT [facility] ([facility]) Name Value Range Interpretation Code Description Data Kimberly rce(s) Supporting Document(s ) Anti-DNA 1 IU/mL Normal (applies to [facility] (St (DS) Ab Qn non-numeric [facility] results) [facility], PC) ID Date Data Source [id number] 10/16/2019 12:00:00 AM EDT [facility] ([facility]) Name Value Range Interpretation Description Data Sup porting Code Source(s) Document(s ) HIV Screen Non Normal (applies MED[facility] (St 4th Reactive to non-numeric [facility] Generation results) [facility], ) wRfx ID Date Data Source [id number] 10/16/2019 12:00:00 AM EDT [facility] ([facility], ) Name Value Range Interpretation Description Data Sup porting Code Source(s) Document(s ) Vitamin D, 8.0 ng/mL Below low normal MEDGEN (St 25-Hydroxy [facility], ) ID Date Data Source [id number] 10/16/2019 12:00:00 AM EDT [facility] ([facility], ) Name Value Range Interpretation Code Description Data Kimberly rce(s) Supporting Document(s ) RA Latex <10.0 Normal (applies to MEDGEN (St Turbid. non-numeric results) [facility], ) ID Date Data Source [id number] 10/16/2019 12:00:00 AM EDT [facility] ([facility], ) Name Value Range Interpretation Description Data Sup porting Code Source(s) Document(s ) Complement C3, 117 mg/dL Normal (applies to MEDGEN (St Serum non-numeric [facility] results) [facility], ) ID Date Data Source [id number] 10/16/2019 12:00:00 AM EDT [facility] ([facility], ) Name Value Range Interpretation Description Data Sup porting Code Source(s) Document(s ) Hep B Non Reactive Normal (applies to MEDGEN ( St Surface Ab, non-numeric [facility] Qual results) [facility], ) ID Date Data Source [id number] 10/16/2019 12:00:00 AM EDT [facility] ([facility], ) Name Value Range Interpretation Description Data Sup porting Code Source(s) Document(s ) Complement C4, 33 mg/dL Normal (applies to MEDGEN (St Serum non-numeric [facility] results) [facility], ) ID Date Data Source [id number] 10/16/2019 12:00:00 AM EDT [facility] ([facility], ) Name Value Range Interpretation Description Data Sup porting Code Source(s) Document(s ) Hemoglobin A1c 6.7 % Above high normal MEDGEN (St in Blood [facility], ) ID Date Data Source [id number] 10/16/2019 12:00:00 AM EDT [facility] ([facility]) Name Value Range Interpretation Code Description Data Kimberly rce(s) Supporting Document(s ) Normetane 256.1 Above high normal [facility] (St phrine, pg/mL [facility], [facility]) Metanephr 144.2 Above high normal MED[facility] (St ine, Pl pg/mL [facility]) ID Date Data Source [id number] 10/16/2019 12:00:00 AM EDT [facility] ([facility]) Name Value Range Interpretation Code Description Data Supporting Source(s) Document(s ) Albumin, 4217.2 Normal (applies to MEDGEN (St Urine ug/mL non-numeric [facility] results) Medical, PC) Alb/Creat 2707 mg/g Above high normal [facility] (St Ratio creat [facility]) ID Date Data Source [id number] 10/16/2019 12:00:00 AM EDT [facility] ([facility]) Name Value Range Interpretation Description Data Sup porting Code Source(s) Document(s ) Free [place] 593.88 Above high normal MEDGEN (St Lt mg/L [facility], [facility]) Free Lambda 130.75 Above high normal [facility] (St Lt mg/L [facility]) [place]/Lambd 4.54 Normal (applies to MEDGEN (S t a Ratio,U non-numeric [facility] results) Medical, ) ID Date Data Source [id number] 10/16/2019 12:00:00 AM EDT [facility] ([facility]) Name Value Range Interpretation Description Data Sup porting Code Source(s) Document(s ) Free [place] 57.8 mg/L Above high normal MEDGEN (St Lt Chains,S [facility], [facility]) Free Lambda 27.9 mg/L Above high normal MED[facility] (St Lt Chains,S [facility], [facility]) [place]/Lambd 2.07 Above high normal [facility] (St a Ratio,S [facility]) ID Date Data Source [id number] 10/16/2019 12:00:00 AM EDT [facility] ([facility]) Name Value Range Interpretation Description Data Sup porting Code Source(s) Document(s ) Aldosterone <1.0 Normal (applies [facility]GEN (St [Molar amount] to non-numeric [facility] in Urine results) [facility], ) collected for unspecified duration Renin 0.178 Normal (applies [facility]GEN (St [Enzymatic ng/mL/hr to non-numeric [facility] activity/volume results) Medical, ) ] in Plasma Aldos/Renin <5.6 Normal (applies MEDGEN (St Ratio to non-numeric [facility] results) [facility], ) ID Date Data Source [id number] 10/16/2019 12:00:00 AM EDT [facility] ([facility], ) Name Value Range Interpretation Code Description Data Supporting Source(s) Document(s ) Creatinine 155.8 Normal (applies to MEDGEN (St , Urine mg/dL non-numeric [facility] results) [facility], ) Protein/Cr 3963 mg/g Above high normal MEDGEN (St eat Ratio creat [facility], ) ID Date Data Source [id number] 10/16/2019 12:00:00 AM EDT [facility] ([facility], ) Name Value Range Interpretation Description Data Sup porting Code Source(s) Document(s ) Immunofixation Normal (applies MEDGEN (S t Result, Serum to non-numeric [facility] results) [facility], ) Immunoglobulin G, 851 Normal (applies MEDGEN (St Qn, Serum mg/dL to non-numeric [facility] results) [facility], ) Immunoglobulin A, 124 Normal (applies MEDGEN (St Qn, Serum mg/dL to non-numeric [facility] results) [facility], ) Immunoglobulin M, 30 mg/dL Normal (applies MEDGEN (St Qn, Serum to non-numeric [facility] results) Medical, ) ID Date Data Source [id number] 10/16/2019 12:00:00 AM EDT [facility] ([facility], ) Name Value Range Interpretation Description Data Sup porting Code Source(s) Document(s ) Iron 228 ug/dL Below low normal MEDGEN (St Bind.Cap.(TIBC [facility] ) Medical, ) UIBC 191 ug/dL Normal (applies to MEDGEN (St non-numeric [facility] results) [facility], ) Iron 16 % Normal (applies to [facility]GEN (St saturation non-numeric [facility] [Mass results) Medical, ) Fraction] in Serum or Plasma Iron 37 ug/dL Below low normal [facility]GEN (St [Mass/volume] [facility] in Serum or Medical, ) Plasma ID Date Data Source [id number] 10/16/2019 12:00:00 AM EDT [facility] ([facility], ) Name Value Range Interpretation Description Data Sup porting Code Source(s) Document(s ) Protein,To 617.5 mg/dL Normal (applies to MEDGEN ( St alaina,Urine non-numeric [facility] results) Medical, ) Albumin, U 77.5 % Normal (applies to MEDGEN (St non-numeric [facility] results) Medical, ) Alpha-1-Gl 1.2 % Normal (applies to MEDGEN (St obulin, U non-numeric [facility] results) Medical, ) Alpha-2-Gl 4.9 % Normal (applies to MEDGEN (St obulin, U non-numeric [facility] results) Medical, ) Beta 10.1 % Normal (applies to MEDGEN (St Globulin, non-numeric [facility] U results) Medical, ) Gamma 6.3 % Normal (applies to MEDGEN (St Globulin, non-numeric [facility] U results) Medical, ) M-Porfirio, % Not Observed Normal (applies to MEDGEN (St non-numeric [facility] results) Medical, ) Please Normal (applies to MEDGEN (St note: non-numeric [facility] results) Medical, ) PDF . Normal (applies to MEDGEN (St non-numeric [facility] results) Medical, ) ID Date Data Source [id number] 10/16/2019 12:00:00 AM EDT [facility] ([facility], ) Name Value Range Interpretation Description Data Sup porting Code Source(s) Document(s ) Microalbumin 3.1 g/dL Normal (applies MEDGEN (St [Mass/time] in to non-numeric [facility] Urine collected results) Medical, for unspecified PC) duration Aldzz-0-Ltzcollv 0.3 g/dL Normal (applies MEDGEN (St to non-numeric [facility] results) Medical, ) Dyhuc-8-Rsxxvayu 0.8 g/dL Normal (applies MEDGEN (St to non-numeric [facility] results) Medical, PC) Beta globulin 0.8 g/dL Normal (applies MEDGEN (St [Mass/volume] in to non-numeric [facility] Urine by results) Medical, Electrophoresis PC) Gamma globulin 0.7 g/dL Normal (applies MEDGEN (S t [Mass/volume] by to non-numeric [facility] Electrophoresis results) Medical, in Urine PC) collected for unspecified duration M-Porfirio Not Normal (applies MEDGEN (St Observed to non-numeric [facility] results) Medical, PC) Globulin, Total 2.6 g/dL Normal (applies MEDGEN ( St to non-numeric [facility] results) Medical, PC) A/G Ratio 1.2 Normal (applies MEDGEN (St to non-numeric [facility] results) Medical, PC) Please note: Normal (applies MEDGEN (St to non-numeric [facility] results) Medical, PC) PDF . Normal (applies MEDGEN (St to non-numeric [facility] results) Medical, PC) ID Date Data Source [id number] 10/16/2019 12:00:00 AM EDT [facility] ([facility]) Name Value Range Interpretation Description Data Sup porting Code Source(s) Document(s ) Specific gravity 1.021 Normal (applies MEDGEN (St of Pericardial to non-numeric [facility] fluid by results) Medical, Refractometry PC) pH of Lower 5.0 Normal (applies MEDGEN (St respiratory to non-numeric [facility] specimen results) Medical, PC) Urine-Color Yellow Normal (applies MEDGEN (St to non-numeric [facility] results) Medical, PC) Appearance of Clear Normal (applies MEDGEN (St Abdomen to non-numeric [facility] results) Medical, PC) WBC Esterase Negative Normal (applies MEDGEN (St to non-numeric [facility] results) Medical, PC) Protein Abnormal MEDGEN (St [Mass/volume] in (applies to [facility] Lower non-numeric Medical, respiratory results) PC) specimen Ketones Negative Normal (applies MEDGEN (St [Presence] in to non-numeric [facility] Blood by Tablet results) Medical, PC) Glucose Abnormal MEDGEN (St [Mass/volume] in (applies to [facility] Urine collected non-numeric Medical, for unspecified results) PC) duration Occult Blood Negative Normal (applies MEDGEN (St to non-numeric [facility] results) Medical, PC) Bilirubin Negative Normal (applies MEDGEN (St [Presence] in to non-numeric [facility] Peritoneal fluid results) Medical, ) Urobilinogen,Nani 0.2 mg/dL Normal (applies MEDGEN (St i-Qn to non-numeric [facility] results) Medical, ) Nitrite, Urine Negative Normal (applies MEDGEN (S t to non-numeric [facility] results) Medical, ) Microscopic See below: Normal (applies MEDGEN (St Examination to non-numeric [facility] results) Medical, ) ID Date Data Source [id number] 10/16/2019 12:00:00 AM EDT [facility] ([facility], ) Name Value Range Interpretation Description Data Sup porting Code Source(s) Document(s ) WBC 0-5 Normal (applies to MEDGEN (St non-numeric [facility] results) Medical, ) RBC 0-2 Normal (applies to MEDGEN (St non-numeric [facility] results) Medical, ) Epithelial 0-10 Normal (applies to MEDGEN (St Cells (non non-numeric [facility] renal) results) Medical, ) Mucus Threads Present Normal (applies to MEDGEN (St non-numeric [facility] results) Medical, ) Bacteria Few Normal (applies to MEDGEN (St [Presence] in non-numeric [facility] Prostatic results) [facility], ) fluid by Light microscopy ID Date Data Source [id number] 10/16/2019 12:00:00 AM EDT [facility] ([facility], ) Name Value Range Interpretation Description Data Sup porting Code Source(s) Document(s ) Glucose 146 Above high MEDGEN (St [Mass/volume] in mg/dL normal [facility] Urine collected for Medical, unspecified PC) duration Urea nitrogen 25 mg/dL Above high MEDGEN (St [Mass/volume] in normal [facility] Serum or Plasma Medical, ) eGFR If NonAfricn 31 Below low normal MEDGE N (St Am mL/min/1 [facility] .73 [facility], ) Creatinine 2.31 Above high MEDGEN (St [Interpretation] in mg/dL normal [facility] Urine Medical, ) eGFR If Africn Am 36 Below low normal MEDGE N (St mL/min/1 [facility] .73 Medical, ) BUN/Creatinine 11 Normal (applies MEDGEN (S t Ratio to non-numeric [facility] results) Medical, ) Potassium 3.7 Normal (applies MEDGEN (St [Mass/volume] in mmol/L to non-numeric [facility] Blood results) Medical, ) Sodium 144 Normal (applies MEDGEN (St [Moles/volume] in mmol/L to non-numeric [facility] Serum or Plasma results) Medical, ) Chloride 112 Above high MEDGEN (St [Moles/volume] in mmol/L normal [facility] Serum or Plasma Medical, ) Carbon dioxide, 19 Below low normal MEDGEN (St total mmol/L [facility] [Moles/volume] in Medical, Serum or Plasma PC) Protein 5.7 g/dL Below low normal MEDGEN (St [Mass/volume] in [facility] Serum or Plasma Medical, ) Calcium 8.7 Normal (applies MEDGEN (St [Moles/volume] in mg/dL to non-numeric [facility] Urine collected for results) Medical, unspecified PC) duration Microalbumin 3.6 g/dL Below low normal MEDGEN (St [Mass/time] in [facility] Urine collected for Medical, unspecified PC) duration Globulin, Total 2.1 g/dL Normal (applies MEDGEN ( St to non-numeric [facility] results) Medical, ) A/G Ratio 1.7 Normal (applies MEDGEN (St to non-numeric [facility] results) Medical, ) Bilirubin.total <0.2 Normal (applies MEDGEN ( St [Mass/volume] in to non-numeric [facility] Serum or Plasma results) Medical, ) Alkaline 140 IU/L Above high MEDGEN (St phosphatase normal [facility] [Enzymatic Medical, activity/volume] in PC) Serum, Plasma or Blood Alanine 20 IU/L Normal (applies MEDGEN (St aminotransferase to non-numeric [facility] [Enzymatic results) Medical, activity/volume] in PC) Serum or Plasma Aspartate 17 IU/L Normal (applies MEDGEN (St aminotransferase to non-numeric [facility] [Enzymatic results) Medical, activity/volume] in PC) Serum or Plasma ID Date Data Source [id number] 10/16/2019 12:00:00 AM EDT [facility] ([facility], ) Name Value Range Interpretation Description Data Sup porting Code Source(s) Document(s ) Leukocytes 8.0 Normal (applies MEDGEN (St [#/volume] in x10E3/uL to non-numeric [facility] Blood by results) [facility], ) Automated count Erythrocytes 3.24 Below low normal MEDGEN (St [#/volume] in x10E6/uL [facility] Blood by [facility], ) Automated count Hemoglobin 9.2 g/dL Below low normal MEDGEN (St [Mass/volume] in [facility] Blood [facility], ) Hematocrit 27.7 % Below low normal MEDGEN (St [Volume [facility] Fraction] of [facility], ) Blood by Automated count MCV 86 fL Normal (applies MEDGEN (St to non-numeric [facility] results) [facility]) MCHC 33.2 Normal (applies MEDGEN (St g/dL to non-numeric [facility] results) [facility]) MCH 28.4 pg Normal (applies MEDGEN (St to non-numeric [facility] results) [facility]) RDW 13.5 % Normal (applies MEDGEN (St to non-numeric [facility] results) [facility], ) Platelets 330 Normal (applies MEDGEN (St [#/area] in x10E3/uL to non-numeric [facility] Blood by results) [facility], ) Microscopy high power field Lymphs 10 % Normal (applies MEDGEN (St to non-numeric Odny's results) [facility], ) Neutrophils [#] 84 % Normal (applies MEDGEN ( St in Body fluid by to non-numeric [facility] Manual count results) [facility], ) Monocytes 4 % Normal (applies MEDGEN (St [#/volume] in to non-numeric [facility] Cord blood results) [facility], ) Eos 2 % Normal (applies MEDGEN (St to non-numeric [facility] results) [facility]) Neutrophils 6.6 Normal (applies MEDGEN (St (Absolute) x10E3/uL to non-numeric [facility] results) [facility], ) Basos 0 % Normal (applies MEDGEN (St to non-numeric [facility] results) [facility]) Lymphs 0.8 Normal (applies MEDGEN (St (Absolute) x10E3/uL to non-numeric [facility] results) [facility], ) Monocytes(Absolu 0.4 Normal (applies MEDGEN (St te) x10E3/uL to non-numeric [facility] results) [facility], ) Eos (Absolute) 0.2 Normal (applies MEDGEN (S t x10E3/uL to non-numeric [facility] results) [facility], ) Baso (Absolute) 0.0 Normal (applies MEDGEN ( St x10E3/uL to non-numeric [facility] results) [facility], ) Immature 0 % Normal (applies MEDGEN (St Granulocytes to non-numeric [facility] results) [facility], ) Immature Grans 0.0 Normal (applies MEDGEN (S t (Abs) x10E3/uL to non-numeric [facility] results) [facility], ) ID Date Data Source [id number] 10/16/2019 12:00:00 AM EDT [facility] ([facility], ) Name Value Range Interpretation Description Data Sup porting Code Source(s) Document(s ) Antimyeloperoxidase <9.0 Normal (applies MEDG EN (St (MPO) Abs to non-numeric [facility] results) [facility], ) Antiproteinase 3 <3.5 Normal (applies MEDGEN (St (MD-3) Abs to non-numeric [facility] results) [facility], ) Cytoplasmic (C-ANCA) <1:20 Normal (applies MED GEN (St to non-numeric [facility] results) [facility], ) Perinuclear (P-ANCA) <1:20 Normal (applies MED GEN (St to non-numeric [facility] results) [facility], ) Atypical pANCA <1:20 Normal (applies MEDGEN (S t to non-numeric [facility] results) [facility], ) ID Date Data Source [id number] 10/16/2019 12:00:00 AM EDT [facility] ([facility], ) Name Value Range Interpretation Description Data Sup porting Code Source(s) Document(s ) Vitamin D, 8.0 ng/mL Below low normal MEDGEN (St 25-Hydroxy [facility], ) ID Date Data Source [id number] 10/16/2019 12:00:00 AM EDT [facility] ([facility] [facility], ) Name Value Range Interpretation Code Description Data Kimberly rce(s) Supporting Document(s ) RA Latex <10.0 Normal (applies to MED[facility] (St Turbid. non-numeric results) [facility], ) ID Date Data Source [id number] 10/16/2019 12:00:00 AM EDT [facility] ([facility], ) Name Value Range Interpretation Description Data Sup porting Code Source(s) Document(s ) Complement C3, 117 mg/dL Normal (applies to [facility] (St Serum non-numeric [facility] results) [facility], ) ID Date Data Source [id number] 10/16/2019 12:00:00 AM EDT [facility] ([facility], ) Name Value Range Interpretation Description Data Sup porting Code Source(s) Document(s ) Hep B Non Reactive Normal (applies to MED[facility] ( St Surface Ab, non-numeric [facility] Qual results) [facility], ) ID Date Data Source [id number] 10/16/2019 12:00:00 AM EDT [facility] ([facility], ) Name Value Range Interpretation Description Data Sup porting Code Source(s) Document(s ) Complement C4, 33 mg/dL Normal (applies to MEDGEN (St Serum non-numeric [facility] results) [facility], ) ID Date Data Source [id number] 10/16/2019 12:00:00 AM EDT [facility] ([facility], ) Name Value Range Interpretation Description Data Sup porting Code Source(s) Document(s ) Hemoglobin A1c 6.7 % Above high normal MED[facility] (St in Blood [facility], ) ID Date Data Source [id number] 10/16/2019 12:00:00 AM EDT [facility] ([facility], ) Name Value Range Interpretation Code Description Data Kimberly rce(s) Supporting Document(s ) Normetane 256.1 Above high normal MEDGEN (St phrine, pg/mL [facility], ) Metanephr 144.2 Above high normal MED[facility] (St ine, Pl pg/mL [facility], ) ID Date Data Source [id number] 10/16/2019 12:00:00 AM EDT [facility] ([facility], ) Name Value Range Interpretation Code Description Data Supporting Source(s) Document(s ) Albumin, 4217.2 Normal (applies to MEDGEN (St Urine ug/mL non-numeric [facility] results) [facility], ) Alb/Creat 2707 mg/g Above high normal MED[facility] (St Ratio creat [facility], ) ID Date Data Source [id number] 10/16/2019 12:00:00 AM EDT [facility] ([facility], ) Name Value Range Interpretation Description Data Sup porting Code Source(s) Document(s ) Free [place] 593.88 Above high normal [facility] (St Lt mg/L [facility], ) Free Lambda 130.75 Above high normal [facility] (St Lt mg/L [facility],Ur [facility], ) [place]/Lambd 4.54 Normal (applies to MEDGEN (S t a Ratio,U non-numeric [facility] results) [facility], ) ID Date Data Source [id number] 10/16/2019 12:00:00 AM EDT [facility] ([facility], ) Name Value Range Interpretation Description Data Sup porting Code Source(s) Document(s ) Free [place] 57.8 mg/L Above high normal MED[facility] (St Lt Chains,S [facility], ) Free Lambda 27.9 mg/L Above high normal MED[facility] (St Lt Chains,S [facility], ) [place]/Lambd 2.07 Above high normal [facility] (St a Ratio,S [facility], ) ID Date Data Source [id number] 10/16/2019 12:00:00 AM EDT [facility] ([facility], ) Name Value Range Interpretation Code Description Data Supporting Source(s) Document(s ) Protein/Cr 3963 mg/g Above high normal MED[facility] (St eat Ratio creat [facility], ) Creatinine 155.8 Normal (applies to MEDGEN (St , Urine mg/dL non-numeric [facility] results) [facility], ) ID Date Data Source [id number] 10/16/2019 12:00:00 AM EDT [facility] ([facility], ) Name Value Range Interpretation Description Data Sup porting Code Source(s) Document(s ) Immunofixation Normal (applies MEDGEN (S t Result, Serum to non-numeric [facility] results) [facility], ) Immunoglobulin G, 851 Normal (applies MED[facility] (St Qn, Serum mg/dL to non-numeric [facility] results) [facility], ) Immunoglobulin A, 124 Normal (applies [facility] (St Qn, Serum mg/dL to non-numeric [facility] results) [facility], ) Immunoglobulin M, 30 mg/dL Normal (applies [facility] (St Qn, Serum to non-numeric [facility] results) [facility], PC) ID Date Data Source [id number] 10/16/2019 12:00:00 AM EDT [facility] ([facility], ) Name Value Range Interpretation Description Data Sup porting Code Source(s) Document(s ) Iron 228 ug/dL Below low normal [facility] (St Bind.Cap.(TIBC [facility] ) Medical, ) UIBC 191 ug/dL Normal (applies to [facility] (St non-numeric [facility] results) [facility], PC) Iron 37 ug/dL Below low normal [facility] (St [Mass/volume] [facility] in Serum or Medical, PC) Plasma Iron 16 % Normal (applies to [facility] (St saturation non-numeric [facility] [Mass results) Medical, ) Fraction] in Serum or Plasma ID Date Data Source [id number] 10/16/2019 12:00:00 AM EDT [facility] ([facility], ) Name Value Range Interpretation Description Data Sup porting Code Source(s) Document(s ) Napeq-6-Otgkroxz 0.3 g/dL Normal (applies MED[facility] (St to non-numeric [facility] results) [facility], PC) Microalbumin 3.1 g/dL Normal (applies [facility] (St [Mass/time] in to non-numeric [facility] Urine collected results) Medical, for unspecified PC) duration Hffuj-6-Jppbyjxv 0.8 g/dL Normal (applies [facility] (St to non-numeric [facility] results) [facility], PC) Beta globulin 0.8 g/dL Normal (applies MED[facility] (St [Mass/volume] in to non-numeric [facility] Urine by results) Medical, Electrophoresis PC) M-Porfirio Not Normal (applies [facility] (St Observed to non-numeric [facility] results) [facility], PC) Gamma globulin 0.7 g/dL Normal (applies MEDGEN (S t [Mass/volume] by to non-numeric [facility] Electrophoresis results) Medical, in Urine PC) collected for unspecified duration Globulin, Total 2.6 g/dL Normal (applies [facility] ( St to non-numeric [facility] results) [facility], PC) A/G Ratio 1.2 Normal (applies [facility] (St to non-numeric [facility] results) Medical, ) Please note: Normal (applies [facility] (St to non-numeric [facility] results) Medical, ) PDF . Normal (applies MED[facility] (St to non-numeric [facility] results) [facility], ) ID Date Data Source [id number] 10/16/2019 12:00:00 AM EDT [facility] ([facility], ) Name Value Range Interpretation Description Data Sup porting Code Source(s) Document(s ) WBC 0-5 Normal (applies to [facility] (St non-numeric [facility] results) Medical, ) Epithelial 0-10 Normal (applies to MEDGEN (St Cells (non non-numeric [facility] renal) results) Medical, ) RBC 0-2 Normal (applies to [facility] (St non-numeric [facility] results) [facility], ) Mucus Threads Present Normal (applies to MEDGEN (St non-numeric [facility] results) [facility], ) Bacteria Few Normal (applies to MEDGEN (St [Presence] in non-numeric [facility] Prostatic results) [facility], ) fluid by Light microscopy ID Date Data Source [id number] 10/16/2019 12:00:00 AM EDT [facility] ([facility], ) Name Value Range Interpretation Description Data Sup porting Code Source(s) Document(s ) Leukocytes 8.0 Normal (applies MEDGEN (St [#/volume] in x10E3/uL to non-numeric [facility] Blood by results) Medical, ) Automated count Hemoglobin 9.2 g/dL Below low normal [facility] (St [Mass/volume] in [facility] Blood [facility], ) Erythrocytes 3.24 Below low normal MED[facility] (St [#/volume] in x10E6/uL [facility] Blood by [facility], ) Automated count Hematocrit 27.7 % Below low normal MEDGEN (St [Volume [facility] Fraction] of [facility], ) Blood by Automated count MCV 86 fL Normal (applies [facility]GEN (St to non-numeric [facility] results) [facility], ) MCH 28.4 pg Normal (applies MEDGEN (St to non-numeric [facility] results) [facility], ) MCHC 33.2 Normal (applies MEDGEN (St g/dL to non-numeric [facility] results) [facility], ) RDW 13.5 % Normal (applies [facility] (St to non-numeric [facility] results) Medical, ) Platelets 330 Normal (applies MEDGEN (St [#/area] in x10E3/uL to non-numeric [facility] Blood by results) [facility], ) Microscopy high power field Neutrophils [#] 84 % Normal (applies MEDGEN ( St in Body fluid by to non-numeric [facility] Manual count results) [facility], ) Lymphs 10 % Normal (applies MED[facility] (St to non-numeric [facility] results) [facility], ) Eos 2 % Normal (applies MEDGEN (St to non-numeric [facility] results) [facility], ) Monocytes 4 % Normal (applies MEDGEN (St [#/volume] in to non-numeric [facility] Cord blood results) [facility], ) Basos 0 % Normal (applies MEDGEN (St to non-numeric [facility] results) [facility], ) Neutrophils 6.6 Normal (applies MEDGEN (St (Absolute) x10E3/uL to non-numeric [facility] results) [facility], ) Lymphs 0.8 Normal (applies MEDGEN (St (Absolute) x10E3/uL to non-numeric [facility] results) [facility], ) Eos (Absolute) 0.2 Normal (applies MEDGEN (S t x10E3/uL to non-numeric [facility] results) [facility], ) Monocytes(Absolu 0.4 Normal (applies MEDGEN (St te) x10E3/uL to non-numeric [facility] results) [facility], ) Baso (Absolute) 0.0 Normal (applies MEDGEN ( St x10E3/uL to non-numeric [facility] results) [facility], ) Immature 0 % Normal (applies MEDGEN (St Granulocytes to non-numeric [facility] results) [facility], ) Immature Grans 0.0 Normal (applies MEDGEN (S t (Abs) x10E3/uL to non-numeric [facility] results) [facility], ) ID Date Data Source [id number] 10/16/2019 12:00:00 AM EDT [facility] ([facility], ) Name Value Range Interpretation Description Data Sup porting Code Source(s) Document(s ) Antiproteinase 3 <3.5 Normal (applies MEDGEN (St (MD-3) Abs to non-numeric [facility] results) Medical, PC) Antimyeloperoxidase <9.0 Normal (applies MEDG EN (St (MPO) Abs to non-numeric [facility] results) Medical, PC) Cytoplasmic (C-ANCA) <1:20 Normal (applies MED GEN (St to non-numeric [facility] results) Medical, PC) Perinuclear (P-ANCA) <1:20 Normal (applies MED GEN (St to non-numeric [facility] results) Medical, PC) Atypical pANCA <1:20 Normal (applies [facility] (S t to non-numeric [facility] results) [facility], PC) ID Date Data Source [id number] 10/16/2019 12:00:00 AM EDT [facility] ([facility]) Name Value Range Interpretation Code Description Data Kimberly rce(s) Supporting Document(s ) ID Date Data Source [id number] 10/16/2019 12:00:00 AM EDT [facility] ([facility]) Name Value Range Interpretation Code Description Data Kimberly rce(s) Supporting Document(s ) PDF . Normal (applies to [facility] (St non-numeric results) [facility], ) ID Date Data Source [id number] 10/16/2019 12:00:00 AM EDT [facility] ([facility]) Name Value Range Interpretation Code Description Data Supporting Source(s) Document(s ) PTH, Intact 83 pg/mL Above high normal [facility] ([facility]) ID Date Data Source [id number] 10/16/2019 12:00:00 AM EDT [facility] ([facility]) Name Value Range Interpretation Code Description Data Supporting Source(s) Document(s ) Ferritin, 133 ng/mL Normal (applies to [facility] (St Serum non-numeric [facility] results) [facility], PC) ID Date Data Source [id number] 10/16/2019 12:00:00 AM EDT [facility] ([facility]) Name Value Range Interpretation Code Description Data Supporting Source(s) Document(s ) JAMAR Direct Negative Normal (applies to [facility] (St non-numeric [facility] results) [facility], PC) ID Date Data Source [id number] 10/16/2019 12:00:00 AM EDT [facility] ([facility]) Name Value Range Interpretation Description Data Sup porting Code Source(s) Document(s ) Deprecated 4.0 mg/dL Normal (applies to MED[facility] (St Phosphorus non-numeric [facility] [Mass/time] in results) Medical, PC) 24 hour Urine ID Date Data Source [id number] 10/16/2019 12:00:00 AM EDT [facility] ([facility]) Name Value Range Interpretation Code Description Data Kimberly rce(s) Supporting Document(s ) Comment: Normal (applies to [facility] (St non-numeric results) [facility]) ID Date Data Source [id number] 10/16/2019 12:00:00 AM EDT [facility] ([facility]) Name Value Range Interpretation Code Description Data Kimberly rce(s) Supporting Document(s ) HCV Ab <0.1 Normal (applies to [facility] (St non-numeric results) [facility], [facility]) ID Date Data Source [id number] 10/16/2019 12:00:00 AM EDT [facility] ([facility]) Name Value Range Interpretation Code Description Data Kimberly rce(s) Supporting Document(s ) Anti-PLA2R <1.8 Normal (applies to [facility] (St non-numeric results) [facility], [facility]) ID Date Data Source [id number] 10/16/2019 12:00:00 AM EDT [facility] ([facility]) Name Value Range Interpretation Code Description Data Kimberly rce(s) Supporting Document(s ) JERMAINE Normal (applies to MEDGEN (St Interpreta non-numeric results) [facility], tion:U PC) ID Date Data Source [id number] 10/16/2019 12:00:00 AM EDT [facility] ([facility]) Name Value Range Interpretation Code Description Data Kimberly rce(s) Supporting Document(s ) Anti-DNA 1 IU/mL Normal (applies to [facility] (St (DS) Ab Qn non-numeric [facility] results) Medical, PC) ID Date Data Source [id number] 10/16/2019 12:00:00 AM EDT [facility] ([facility]) Name Value Range Interpretation Description Data Sup porting Code Source(s) Document(s ) HIV Screen Non Normal (applies MED[facility] (St 4th Reactive to non-numeric [facility] Generation results) [facility], ) wRfx ID Date Data Source [id number] 10/16/2019 12:00:00 AM EDT [facility] ([facility], ) Name Value Range Interpretation Description Data Sup porting Code Source(s) Document(s ) Vitamin D, 8.0 ng/mL Below low normal MED[facility] (St 25-Hydroxy [facility], ) ID Date Data Source [id number] 10/16/2019 12:00:00 AM EDT [facility] ([facility], ) Name Value Range Interpretation Code Description Data Kimberly rce(s) Supporting Document(s ) RA Latex <10.0 Normal (applies to MEDGEN (St Turbid. non-numeric results) [facility], ) ID Date Data Source [id number] 10/16/2019 12:00:00 AM EDT [facility] ([facility], ) Name Value Range Interpretation Description Data Sup porting Code Source(s) Document(s ) Complement C3, 117 mg/dL Normal (applies to MEDGEN (St Serum non-numeric [facility] results) [facility], ) ID Date Data Source [id number] 10/16/2019 12:00:00 AM EDT [facility] ([facility], ) Name Value Range Interpretation Description Data Sup porting Code Source(s) Document(s ) Hep B Non Reactive Normal (applies to MED[facility] ( St Surface Ab, non-numeric [facility] Qual results) Medical, ) ID Date Data Source [id number] 10/16/2019 12:00:00 AM EDT [facility] ([facility], ) Name Value Range Interpretation Description Data Sup porting Code Source(s) Document(s ) Complement C4, 33 mg/dL Normal (applies to MEDGEN (St Serum non-numeric [facility] results) [facility], ) ID Date Data Source [id number] 10/16/2019 12:00:00 AM EDT [facility] ([facility], ) Name Value Range Interpretation Description Data Sup porting Code Source(s) Document(s ) Hemoglobin A1c 6.7 % Above high normal MED[facility] (St in Blood [facility], ) ID Date Data Source [id number] 10/16/2019 12:00:00 AM EDT [facility] ([facility]) Name Value Range Interpretation Code Description Data Kimberly rce(s) Supporting Document(s ) Normetane 256.1 Above high normal [facility] (St phrine, pg/mL [facility], [facility]) Metanephr 144.2 Above high normal [facility] (St ine, Pl pg/mL [facility], [facility]) ID Date Data Source [id number] 10/16/2019 12:00:00 AM EDT [facility] ([facility]) Name Value Range Interpretation Code Description Data Supporting Source(s) Document(s ) Albumin, 4217.2 Normal (applies to MEDGEN (St Urine ug/mL non-numeric [facility] results) Medical, ) Alb/Creat 2707 mg/g Above high normal [facility] (St Ratio creat [facility], [facility]) ID Date Data Source [id number] 10/16/2019 12:00:00 AM EDT [facility] ([facility]) Name Value Range Interpretation Description Data Sup porting Code Source(s) Document(s ) Free [place] 593.88 Above high normal MED[facility] (St Lt mg/L [facility], [facility]) Free Lambda 130.75 Above high normal [facility] (St Lt mg/L [facility], [facility]) [place]d 4.54 Normal (applies to MEDGEN (S t a Ratio,U non-numeric [facility] results) Medical, ) ID Date Data Source [id number] 10/16/2019 12:00:00 AM EDT [facility] ([facility]) Name Value Range Interpretation Description Data Sup porting Code Source(s) Document(s ) Free [place] 57.8 mg/L Above high normal MED[facility] (St Lt Chains,S [facility], [facility]) Free Lambda 27.9 mg/L Above high normal [facility] (St Lt Chains,S [facility], [facility]) [place]/Lambd 2.07 Above high normal [facility] (St a Ratio,S [facility], [facility]) ID Date Data Source [id number] 10/16/2019 12:00:00 AM EDT [facility] ([facility]) Name Value Range Interpretation Description Data Sup porting Code Source(s) Document(s ) Aldosterone <1.0 Normal (applies MEDGEN (St [Molar amount] to non-numeric [facility] in Urine results) [facility], ) collected for unspecified duration Renin 0.178 Normal (applies MEDGEN (St [Enzymatic ng/mL/hr to non-numeric [facility] activity/volume results) [facility], ) ] in Plasma Aldos/Renin <5.6 Normal (applies MEDGEN (St Ratio to non-numeric [facility] results) [facility], ) ID Date Data Source [id number] 10/16/2019 12:00:00 AM EDT [facility] ([facility], ) Name Value Range Interpretation Code Description Data Supporting Source(s) Document(s ) Creatinine 155.8 Normal (applies to MEDGEN (St , Urine mg/dL non-numeric [facility] results) [facility], ) Protein/Cr 3963 mg/g Above high normal MEDGEN (St eat Ratio creat [facility], ) ID Date Data Source [id number] 10/16/2019 12:00:00 AM EDT [facility] ([facility], ) Name Value Range Interpretation Description Data Sup porting Code Source(s) Document(s ) Immunofixation Normal (applies MEDGEN (S t Result, Serum to non-numeric [facility] results) [facility], ) Immunoglobulin G, 851 Normal (applies MEDGEN (St Qn, Serum mg/dL to non-numeric [facility] results) [facility], ) Immunoglobulin A, 124 Normal (applies MEDGEN (St Qn, Serum mg/dL to non-numeric [facility] results) [facility], ) Immunoglobulin M, 30 mg/dL Normal (applies MEDGEN (St Qn, Serum to non-numeric [facility] results) [facility], ) ID Date Data Source [id number] 10/16/2019 12:00:00 AM EDT [facility] ([facility], ) Name Value Range Interpretation Description Data Sup porting Code Source(s) Document(s ) Protein,To 617.5 mg/dL Normal (applies to MEDGEN ( St alaina,Urine non-numeric [facility] results) [facility], ) Albumin, U 77.5 % Normal (applies to MEDGEN (St non-numeric [facility] results) [facility], ) Alpha-1-Gl 1.2 % Normal (applies to MEDGEN (St obulin, U non-numeric [facility] results) Medical, ) Alpha-2-Gl 4.9 % Normal (applies to MEDGEN (St obulin, U non-numeric [facility] results) Medical, PC) Gamma 6.3 % Normal (applies to MEDGEN (St Globulin, non-numeric [facility] U results) Medical, PC) Beta 10.1 % Normal (applies to MEDGEN (St Globulin, non-numeric [facility] U results) Medical, PC) M-Porfirio, % Not Observed Normal (applies to MEDGEN (St non-numeric [facility] results) Medical, PC) Please Normal (applies to MEDGEN (St note: non-numeric [facility] results) Medical, PC) PDF . Normal (applies to MEDGEN (St non-numeric [facility] results) Medical, ) ID Date Data Source [id number] 10/16/2019 12:00:00 AM EDT [facility] ([facility], ) Name Value Range Interpretation Description Data Sup porting Code Source(s) Document(s ) Microalbumin 3.1 g/dL Normal (applies MEDGEN (St [Mass/time] in to non-numeric [facility] Urine collected results) Medical, for unspecified PC) duration Nwxiv-0-Nfeudghf 0.3 g/dL Normal (applies MEDGEN (St to non-numeric [facility] results) Medical, PC) Swris-7-Welwfpjz 0.8 g/dL Normal (applies MEDGEN (St to non-numeric [facility] results) Medical, PC) Beta globulin 0.8 g/dL Normal (applies MEDGEN (St [Mass/volume] in to non-numeric [facility] Urine by results) Medical, Electrophoresis PC) M-Porfirio Not Normal (applies MEDGEN (St Observed to non-numeric [facility] results) Medical, PC) Gamma globulin 0.7 g/dL Normal (applies MEDGEN (S t [Mass/volume] by to non-numeric [facility] Electrophoresis results) Medical, in Urine PC) collected for unspecified duration Globulin, Total 2.6 g/dL Normal (applies MEDGEN ( St to non-numeric [facility] results) Medical, PC) A/G Ratio 1.2 Normal (applies MEDGEN (St to non-numeric [facility] results) Medical, PC) Please note: Normal (applies MEDGEN (St to non-numeric [facility] results) Medical, ) PDF . Normal (applies MEDGEN (St to non-numeric [facility] results) Medical, ) ID Date Data Source [id number] 10/16/2019 12:00:00 AM EDT [facility] ([facility], ) Name Value Range Interpretation Description Data Sup porting Code Source(s) Document(s ) Specific gravity 1.021 Normal (applies [facility] (St of Pericardial to non-numeric [facility] fluid by results) Medical, Refractometry PC) pH of Lower 5.0 Normal (applies [facility] (St respiratory to non-numeric [facility] specimen results) Medical, PC) Urine-Color Yellow Normal (applies [facility] (St to non-numeric [facility] results) Medical, PC) Appearance of Clear Normal (applies [facility] (St Abdomen to non-numeric [facility] results) Medical, PC) WBC Esterase Negative Normal (applies [facility] (St to non-numeric [facility] results) Medical, PC) Protein Abnormal [facility] (St [Mass/volume] in (applies to [facility] Lower non-numeric Medical, respiratory results) PC) specimen Glucose Abnormal [facility] (St [Mass/volume] in (applies to [facility] Urine collected non-numeric Medical, for unspecified results) PC) duration Ketones Negative Normal (applies [facility] (St [Presence] in to non-numeric [facility] Blood by Tablet results) Medical, PC) Occult Blood Negative Normal (applies [facility] (St to non-numeric [facility] results) Medical, PC) Bilirubin Negative Normal (applies [facility] (St [Presence] in to non-numeric [facility] Peritoneal fluid results) Medical, PC) Urobilinogen,Nani 0.2 mg/dL Normal (applies [facility] (St i-Qn to non-numeric [facility] results) Medical, PC) Nitrite, Urine Negative Normal (applies [facility] (S t to non-numeric [facility] results) Medical, PC) Microscopic See below: Normal (applies [facility] (St Examination to non-numeric [facility] results) Medical, ) ID Date Data Source [id number] 10/16/2019 12:00:00 AM EDT [facility] ([facility], ) Name Value Range Interpretation Description Data Sup porting Code Source(s) Document(s ) WBC 0-5 Normal (applies to [facility] (St non-numeric [facility] results) Medical, ) RBC 0-2 Normal (applies to [facility] (St non-numeric [facility] results) Medical, ) Epithelial 0-10 Normal (applies to [facility] (St Cells (non non-numeric [facility] renal) results) [facility], ) Mucus Threads Present Normal (applies to [facility] (St non-numeric [facility] results) [facility], ) Bacteria Few Normal (applies to [facility] (St [Presence] in non-numeric [facility] Prostatic results) [facility], ) fluid by Light microscopy ID Date Data Source [id number] 10/16/2019 12:00:00 AM EDT [facility] ([facility], ) Name Value Range Interpretation Description Data Sup porting Code Source(s) Document(s ) Glucose 146 Above high [facility] (St [Mass/volume] in mg/dL normal [facility] Urine collected for Medical, unspecified PC) duration Urea nitrogen 25 mg/dL Above high [facility] (St [Mass/volume] in normal [facility] Serum or Plasma [facility], ) Creatinine 2.31 Above high [facility] (St [Interpretation] in mg/dL normal [facility] Urine [facility], ) eGFR If NonAfricn 31 Below low normal [facility] N (St Am mL/min/1 [facility]'s .73 [facility], ) eGFR If Africn Am 36 Below low normal [facility] N (St mL/min/1 [facility]'s .73 [facility], ) BUN/Creatinine 11 Normal (applies [facility] (S t Ratio to non-numeric [facility] results) [facility], ) Sodium 144 Normal (applies [facility] (St [Moles/volume] in mmol/L to non-numeric [facility] Serum or Plasma results) [facility], ) Potassium 3.7 Normal (applies [facility] (St [Mass/volume] in mmol/L to non-numeric [facility] Blood results) [facility], ) Chloride 112 Above high [facility] (St [Moles/volume] in mmol/L normal [facility] Serum or Plasma [facility], ) Carbon dioxide, 19 Below low normal [facility] (St total mmol/L [facility] [Moles/volume] in Medical, Serum or Plasma PC) Calcium 8.7 Normal (applies [facility] (St [Moles/volume] in mg/dL to non-numeric [facility] Urine collected for results) Medical, unspecified ) duration Microalbumin 3.6 g/dL Below low normal [facility] (St [Mass/time] in [facility] Urine collected for Medical, unspecified PC) duration Protein 5.7 g/dL Below low normal [facility] (St [Mass/volume] in [facility] Serum or Plasma [facility], ) Globulin, Total 2.1 g/dL Normal (applies [facility] ( St to non-numeric [facility] results) Medical, ) A/G Ratio 1.7 Normal (applies [facility] (St to non-numeric [facility] results) Medical, ) Alkaline 140 IU/L Above high [facility] (St phosphatase normal [facility] [Enzymatic Medical, activity/volume] in ) Serum, Plasma or Blood Bilirubin.total <0.2 Normal (applies [facility] ( St [Mass/volume] in to non-numeric [facility] Serum or Plasma results) Medical, ) Aspartate 17 IU/L Normal (applies [facility] (St aminotransferase to non-numeric [facility] [Enzymatic results) Medical, activity/volume] in ) Serum or Plasma Alanine 20 IU/L Normal (applies [facility] (St aminotransferase to non-numeric [facility] [Enzymatic results) Medical, activity/volume] in ) Serum or Plasma ID Date Data Source [id number] 10/16/2019 12:00:00 AM EDT [facility] ([facility], ) Name Value Range Interpretation Description Data Sup porting Code Source(s) Document(s ) Leukocytes 8.0 Normal (applies [facility] (St [#/volume] in x10E3/uL to non-numeric [facility] Blood by results) Medical, ) Automated count Erythrocytes 3.24 Below low normal [facility] (St [#/volume] in x10E6/uL [facility] Blood by Medical, ) Automated count Hemoglobin 9.2 g/dL Below low normal [facility] (St [Mass/volume] in [facility] Blood [facility], ) MCV 86 fL Normal (applies [facility] (St to non-numeric [facility] results) Medical, ) Hematocrit 27.7 % Below low normal [facility] (St [Volume [facility] Fraction] of Medical, ) Blood by Automated count MCH 28.4 pg Normal (applies [facility] (St to non-numeric [facility] results) [facility], ) MCHC 33.2 Normal (applies [facility] (St g/dL to non-numeric [facility] results) [facility], ) RDW 13.5 % Normal (applies [facility] (St to non-numeric [facility] results) [facility], ) Platelets 330 Normal (applies [facility] (St [#/area] in x10E3/uL to non-numeric [facility] Blood by results) [facility], ) Microscopy high power field Neutrophils [#] 84 % Normal (applies [facility] ( St in Body fluid by to non-numeric [facility] Manual count results) [facility], ) Lymphs 10 % Normal (applies [facility] (St to non-numeric [facility] results) [facility], ) Monocytes 4 % Normal (applies [facility] (St [#/volume] in to non-numeric [facility] Cord blood results) [facility], ) Eos 2 % Normal (applies [facility] (St to non-numeric [facility] results) [facility], ) Basos 0 % Normal (applies [facility] (St to non-numeric [facility] results) [facility], ) Neutrophils 6.6 Normal (applies [facility] (St (Absolute) x10E3/uL to non-numeric [facility] results) [facility], ) Monocytes(Absolu 0.4 Normal (applies [facility] (St te) x10E3/uL to non-numeric [facility] results) [facility], ) Lymphs 0.8 Normal (applies [facility] (St (Absolute) x10E3/uL to non-numeric [facility] results) [facility], ) Eos (Absolute) 0.2 Normal (applies [facility] (S t x10E3/uL to non-numeric [facility] results) [facility], ) Baso (Absolute) 0.0 Normal (applies [facility] ( St x10E3/uL to non-numeric [facility] results) [facility], ) Immature Grans 0.0 Normal (applies [facility] (S t (Abs) x10E3/uL to non-numeric [facility] results) [facility], ) Immature 0 % Normal (applies [facility] (St Granulocytes to non-numeric [facility] results) [facility], ) ID Date Data Source [id number] 10/16/2019 12:00:00 AM EDT [facility] ([facility], ) Name Value Range Interpretation Description Data Sup porting Code Source(s) Document(s ) Antimyeloperoxidase <9.0 Normal (applies [facility] EN (St (MPO) Abs to non-numeric [facility] results) Medical, ) Antiproteinase 3 <3.5 Normal (applies [facility] (St (MD-3) Abs to non-numeric [facility] results) Medical, ) Cytoplasmic (C-ANCA) <1:20 Normal (applies MED GEN (St to non-numeric [facility] results) Medical, ) Perinuclear (P-ANCA) <1:20 Normal (applies MED [facility] (St to non-numeric [facility] results) Medical, ) Atypical pANCA <1:20 Normal (applies [facility] (S t to non-numeric [facility] results) [facility], ) ID Date Data Source [id number] 10/16/2019 12:00:00 AM EDT [facility] ([facility], ) Name Value Range Interpretation Description Data Sup porting Code Source(s) Document(s ) Complement C3, 117 mg/dL Normal (applies to [facility] (St Serum non-numeric [facility] results) [facility], ) ID Date Data Source [id number] 10/16/2019 12:00:00 AM EDT [facility] ([facility], ) Name Value Range Interpretation Description Data Sup porting Code Source(s) Document(s ) Hep B Non Reactive Normal (applies to [facility] ( St Surface Ab, non-numeric [facility] Qual results) [facility], ) ID Date Data Source [id number] 10/16/2019 12:00:00 AM EDT [facility] ([facility], ) Name Value Range Interpretation Description Data Sup porting Code Source(s) Document(s ) Complement C4, 33 mg/dL Normal (applies to [facility] (St Serum non-numeric [facility] results) [facility], ) ID Date Data Source [id number] 10/16/2019 12:00:00 AM EDT [facility] ([facility], ) Name Value Range Interpretation Description Data Sup porting Code Source(s) Document(s ) Hemoglobin A1c 6.7 % Above high normal [facility] (St in Blood [facility]'s [facility], ) ID Date Data Source [id number] 10/16/2019 12:00:00 AM EDT [facility] ([facility], [facility]) Name Value Range Interpretation Code Description Data Kimberly rce(s) Supporting Document(s ) Metanephr 144.2 Above high normal [facility] (St ine, Pl pg/mL [facility], PC) Normetane 256.1 Above high normal [facility] (St phrine, pg/mL [facility] Pl [facility], PC) ID Date Data Source [id number] 10/16/2019 12:00:00 AM EDT [facility] ([facility], [facility]) Name Value Range Interpretation Code Description Data Supporting Source(s) Document(s ) Albumin, 4217.2 Normal (applies to [facility] (St Urine ug/mL non-numeric [facility] results) Medical, PC) Alb/Creat 2707 mg/g Above high normal [facility] (St Ratio creat [facility], PC) ID Date Data Source [id number] 10/16/2019 12:00:00 AM EDT [facility] ([facility], [facility]) Name Value Range Interpretation Description Data Sup porting Code Source(s) Document(s ) Free [place] 593.88 Above high normal [facility] (St Lt mg/L [facility], PC) Free Lambda 130.75 Above high normal [facility] (St Lt mg/L [facility], PC) [place]/Lambd 4.54 Normal (applies to [facility] (S t a Ratio,U non-numeric [facility] results) Medical, ) ID Date Data Source [id number] 10/16/2019 12:00:00 AM EDT [facility] ([facility]) Name Value Range Interpretation Description Data Sup porting Code Source(s) Document(s ) Free [place] 57.8 mg/L Above high normal [facility] (St Lt Chains,S [facility], PC) Free Lambda 27.9 mg/L Above high normal [facility] (St Lt Chains,S [facility], PC) [place]/Lambd 2.07 Above high normal [facility] (St a Ratio,S [facility], PC) ID Date Data Source [id number] 10/16/2019 12:00:00 AM EDT [facility] ([facility]) Name Value Range Interpretation Description Data Sup porting Code Source(s) Document(s ) Aldosterone <1.0 Normal (applies [facility] (St [Molar amount] to non-numeric [facility] in Urine results) [facility], ) collected for unspecified duration Renin 0.178 Normal (applies [facility] (St [Enzymatic ng/mL/hr to non-numeric [facility] activity/volume results) [facility], ) ] in Plasma Aldos/Renin <5.6 Normal (applies [facility] (St Ratio to non-numeric [facility] results) [facility], ) ID Date Data Source [id number] 10/16/2019 12:00:00 AM EDT [facility] (St [facility], ) Name Value Range Interpretation Code Description Data Supporting Source(s) Document(s ) Creatinine 155.8 Normal (applies to [facility] (St , Urine mg/dL non-numeric [facility] results) [facility], ) Protein/Cr 3963 mg/g Above high normal [facility] (St eat Ratio creat [facility], ) ID Date Data Source [id number] 10/16/2019 12:00:00 AM EDT [facility] ([facility], ) Name Value Range Interpretation Description Data Sup porting Code Source(s) Document(s ) Immunofixation Normal (applies [facility] (S t Result, Serum to non-numeric [facility] results) [facility], ) Immunoglobulin G, 851 Normal (applies [facility] (St Qn, Serum mg/dL to non-numeric [facility] results) [facility], ) Immunoglobulin A, 124 Normal (applies [facility] (St Qn, Serum mg/dL to non-numeric [facility] results) [facility], ) Immunoglobulin M, 30 mg/dL Normal (applies [facility] (St Qn, Serum to non-numeric [facility] results) [facility], ) ID Date Data Source [id number] 10/16/2019 12:00:00 AM EDT [facility] ([facility], ) Name Value Range Interpretation Description Data Sup porting Code Source(s) Document(s ) Iron 228 ug/dL Below low normal [facility] (St Bind.Cap.(TIBC [facility] ) [facility], ) Iron 37 ug/dL Below low normal [facility] (St [Mass/volume] [facility] in Serum or Medical, ) Plasma UIBC 191 ug/dL Normal (applies to [facility] (St non-numeric [facility] results) [facility], ) Iron 16 % Normal (applies to [facility] (St saturation non-numeric [facility] [Mass results) Medical, ) Fraction] in Serum or Plasma ID Date Data Source [id number] 10/16/2019 12:00:00 AM EDT [facility] ([facility], ) Name Value Range Interpretation Description Data Sup porting Code Source(s) Document(s ) Protein,To 617.5 mg/dL Normal (applies to [facility] ( St alaina,Urine non-numeric [facility] results) Medical, ) Alpha-1-Gl 1.2 % Normal (applies to [facility] (St obulin, U non-numeric [facility] results) Medical, ) Albumin, U 77.5 % Normal (applies to [facility] (St non-numeric [facility] results) Medical, ) Alpha-2-Gl 4.9 % Normal (applies to [facility] (St obulin, U non-numeric [facility] results) Medical, ) Beta 10.1 % Normal (applies to [facility] (St Globulin, non-numeric [facility] U results) Medical, ) Gamma 6.3 % Normal (applies to [facility] (St Globulin, non-numeric [facility] U results) Medical, ) M-Porfirio, % Not Observed Normal (applies to [facility] (St non-numeric [facility] results) Medical, ) Please Normal (applies to [facility] (St note: non-numeric [facility] results) Medical, ) PDF . Normal (applies to [facility] (St non-numeric [facility] results) Medical, ) ID Date Data Source [id number] 10/16/2019 12:00:00 AM EDT [facility] ([facility], ) Name Value Range Interpretation Description Data Sup porting Code Source(s) Document(s ) Nbhfb-9-Yevmdrmm 0.3 g/dL Normal (applies [facility] (St to non-numeric [facility] results) Medical, ) Microalbumin 3.1 g/dL Normal (applies [facility] (St [Mass/time] in to non-numeric [facility] Urine collected results) Medical, for unspecified PC) duration Xkncx-8-Jakdfnex 0.8 g/dL Normal (applies [facility] (St to non-numeric [facility] results) Medical, ) Beta globulin 0.8 g/dL Normal (applies [facility] (St [Mass/volume] in to non-numeric [facility] Urine by results) Medical, Electrophoresis PC) Gamma globulin 0.7 g/dL Normal (applies [facility] (S t [Mass/volume] by to non-numeric [facility] Electrophoresis results) Medical, in Urine PC) collected for unspecified duration M-Porfirio Not Normal (applies [facility] (St Observed to non-numeric [facility] results) Medical, ) Globulin, Total 2.6 g/dL Normal (applies [facility] ( St to non-numeric [facility] results) Medical, PC) A/G Ratio 1.2 Normal (applies [facility] (St to non-numeric [facility] results) Medical, PC) Please note: Normal (applies [facility] (St to non-numeric [facility] results) Medical, PC) PDF . Normal (applies [facility] (St to non-numeric [facility] results) Medical, ) ID Date Data Source [id number] 10/16/2019 12:00:00 AM EDT [facility] ([facility], [facility]) Name Value Range Interpretation Description Data Sup porting Code Source(s) Document(s ) Specific gravity 1.021 Normal (applies [facility] (St of Pericardial to non-numeric [facility] fluid by results) Medical, Refractometry PC) pH of Lower 5.0 Normal (applies [facility] (St respiratory to non-numeric [facility] specimen results) Medical, PC) Urine-Color Yellow Normal (applies [facility] (St to non-numeric [facility] results) Medical, PC) Appearance of Clear Normal (applies [facility] (St Abdomen to non-numeric [facility] results) Medical, PC) WBC Esterase Negative Normal (applies [facility] (St to non-numeric [facility] results) Medical, PC) Protein Abnormal [facility] (St [Mass/volume] in (applies to [facility] Lower non-numeric Medical, respiratory results) PC) specimen Glucose Abnormal [facility] (St [Mass/volume] in (applies to [facility] Urine collected non-numeric Medical, for unspecified results) PC) duration Ketones Negative Normal (applies [facility] (St [Presence] in to non-numeric [facility] Blood by Tablet results) Medical, PC) Occult Blood Negative Normal (applies [facility] (St to non-numeric [facility] results) Medical, PC) Urobilinogen,Nani 0.2 mg/dL Normal (applies [facility] (St i-Qn to non-numeric [facility] results) Medical, ) Bilirubin Negative Normal (applies [facility] (St [Presence] in to non-numeric [facility] Peritoneal fluid results) Medical, ) Nitrite, Urine Negative Normal (applies [facility] (S t to non-numeric [facility] results) Medical, ) Microscopic See below: Normal (applies [facility] (St Examination to non-numeric [facility] results) Medical, ) ID Date Data Source [id number] 10/16/2019 12:00:00 AM EDT [facility] ([facility], ) Name Value Range Interpretation Description Data Sup porting Code Source(s) Document(s ) WBC 0-5 Normal (applies to [facility] (St non-numeric [facility] results) Medical, ) RBC 0-2 Normal (applies to [facility] (St non-numeric [facility] results) Medical, ) Epithelial 0-10 Normal (applies to [facility] (St Cells (non non-numeric [facility] renal) results) [facility], ) Mucus Threads Present Normal (applies to [facility] (St non-numeric [facility] results) [facility], ) Bacteria Few Normal (applies to [facility] (St [Presence] in non-numeric [facility] Prostatic results) [facility], ) fluid by Light microscopy ID Date Data Source [id number] 10/16/2019 12:00:00 AM EDT [facility] ([facility], ) Name Value Range Interpretation Description Data Sup porting Code Source(s) Document(s ) Glucose 146 Above high [facility] (St [Mass/volume] in mg/dL normal [facility] Urine collected for Medical, unspecified PC) duration Urea nitrogen 25 mg/dL Above high [facility] (St [Mass/volume] in normal [facility] Serum or Plasma Medical, ) Creatinine 2.31 Above high [facility] (St [Interpretation] in mg/dL normal [facility] Urine [facility], ) eGFR If NonAfricn 31 Below low normal [facility] N (St Am mL/min/1 [facility] .73 Medical, ) eGFR If Africn Am 36 Below low normal [facility] N (St mL/min/1 [facility] .73 [facility], ) BUN/Creatinine 11 Normal (applies [facility] (S t Ratio to non-numeric [facility] results) Medical, PC) Sodium 144 Normal (applies [facility] (St [Moles/volume] in mmol/L to non-numeric [facility] Serum or Plasma results) Medical, ) Potassium 3.7 Normal (applies [facility] (St [Mass/volume] in mmol/L to non-numeric [facility] Blood results) Medical, ) Chloride 112 Above high [facility] (St [Moles/volume] in mmol/L normal [facility] Serum or Plasma Medical, ) Calcium 8.7 Normal (applies [facility] (St [Moles/volume] in mg/dL to non-numeric [facility] Urine collected for results) Medical, unspecified PC) duration Carbon dioxide, 19 Below low normal [facility] (St total mmol/L [facility] [Moles/volume] in Medical, Serum or Plasma PC) Protein 5.7 g/dL Below low normal [facility] (St [Mass/volume] in [facility] Serum or Plasma Medical, ) Microalbumin 3.6 g/dL Below low normal [facility] (St [Mass/time] in [facility] Urine collected for Medical, unspecified PC) duration Globulin, Total 2.1 g/dL Normal (applies [facility] ( St to non-numeric [facility] results) Medical, ) Bilirubin.total <0.2 Normal (applies [facility] ( St [Mass/volume] in to non-numeric [facility] Serum or Plasma results) Medical, ) A/G Ratio 1.7 Normal (applies [facility] (St to non-numeric [facility] results) Medical, ) Alkaline 140 IU/L Above high [facility] (St phosphatase normal [facility] [Enzymatic Medical, activity/volume] in PC) Serum, Plasma or Blood Aspartate 17 IU/L Normal (applies [facility] (St aminotransferase to non-numeric [facility] [Enzymatic results) Medical, activity/volume] in PC) Serum or Plasma Alanine 20 IU/L Normal (applies [facility] (St aminotransferase to non-numeric [facility] [Enzymatic results) Medical, activity/volume] in PC) Serum or Plasma ID Date Data Source [id number] 10/16/2019 12:00:00 AM EDT [facility] ([facility], ) Name Value Range Interpretation Description Data Sup porting Code Source(s) Document(s ) Leukocytes 8.0 Normal (applies [facility] (St [#/volume] in x10E3/uL to non-numeric [facility] Blood by results) [facility], ) Automated count Erythrocytes 3.24 Below low normal [facility] (St [#/volume] in x10E6/uL [facility] Blood by [facility], ) Automated count Hemoglobin 9.2 g/dL Below low normal [facility] (St [Mass/volume] in [facility] Blood [facility], ) Hematocrit 27.7 % Below low normal [facility] (St [Volume [facility] Fraction] of [facility], ) Blood by Automated count MCV 86 fL Normal (applies [facility] (St to non-numeric [facility] results) [facility], ) MCH 28.4 pg Normal (applies [facility] (St to non-numeric [facility] results) [facility]) MCHC 33.2 Normal (applies [facility] (St g/dL to non-numeric [facility] results) [facility]) RDW 13.5 % Normal (applies [facility] (St to non-numeric [facility] results) [facility], ) Platelets 330 Normal (applies [facility] (St [#/area] in x10E3/uL to non-numeric [facility] Blood by results) [facility], ) Microscopy high power field Lymphs 10 % Normal (applies [facility] (St to non-numeric [facility] results) [facility], ) Neutrophils [#] 84 % Normal (applies [facility] ( St in Body fluid by to non-numeric [facility] Manual count results) [facility]) Monocytes 4 % Normal (applies [facility] (St [#/volume] in to non-numeric [facility] Cord blood results) [facility], ) Eos 2 % Normal (applies MEDGEN (St to non-numeric [facility] results) [facility], ) Basos 0 % Normal (applies MEDGEN (St to non-numeric [facility] results) [facility], ) Neutrophils 6.6 Normal (applies MEDGEN (St (Absolute) x10E3/uL to non-numeric [facility] results) [facility]) Monocytes(Absolu 0.4 Normal (applies MEDGEN (St te) x10E3/uL to non-numeric [facility] results) [facility], ) Lymphs 0.8 Normal (applies MEDGEN (St (Absolute) x10E3/uL to non-numeric [facility] results) [facility], ) Eos (Absolute) 0.2 Normal (applies MEDGEN (S t x10E3/uL to non-numeric [facility] results) Medical, ) Baso (Absolute) 0.0 Normal (applies MEDGEN ( St x10E3/uL to non-numeric [facility] results) Medical, ) Immature 0 % Normal (applies MEDGEN (St Granulocytes to non-numeric [facility] results) Medical, ) Immature Grans 0.0 Normal (applies MEDGEN (S t (Abs) x10E3/uL to non-numeric [facility] results) [facility], ) ID Date Data Source [id number] 10/16/2019 12:00:00 AM EDT MEDGEN ([facility], ) Name Value Range Interpretation Description Data Sup porting Code Source(s) Document(s ) Antimyeloperoxidase <9.0 Normal (applies MEDG EN (St (MPO) Abs to non-numeric [facility] results) Medical, ) Cytoplasmic (C-ANCA) <1:20 Normal (applies MED GEN (St to non-numeric [facility] results) [facility], ) Antiproteinase 3 <3.5 Normal (applies MEDGEN (St (MD-3) Abs to non-numeric [facility] results) [facility], ) Perinuclear (P-ANCA) <1:20 Normal (applies MED GEN (St to non-numeric [facility] results) [facility], ) Atypical pANCA <1:20 Normal (applies MEDGEN (S t to non-numeric [facility] results) [facility], ) ID Date Data Source [id number] 10/16/2019 12:00:00 AM EDT MED[facility] ([facility], ) Name Value Range Interpretation Code Description Data Kimberly rce(s) Supporting Document(s ) ID Date Data Source [id number] 10/16/2019 12:00:00 AM EDT MEDGEN ([facility], ) Name Value Range Interpretation Code Description Data Kimberly rce(s) Supporting Document(s ) PDF . Normal (applies to MEDGEN (St non-numeric results) [facility], ) ID Date Data Source [id number] 10/16/2019 12:00:00 AM EDT MEDGEN ([facility], ) Name Value Range Interpretation Code Description Data Supporting Source(s) Document(s ) PTH, Intact 83 pg/mL Above high normal [facility] ([facility]) ID Date Data Source [id number] 10/16/2019 12:00:00 AM EDT [facility] ([facility]) Name Value Range Interpretation Code Description Data Supporting Source(s) Document(s ) HBsAg Negative Normal (applies to MEDGEN (St Screen non-numeric [facility] results) [facility], [facility]) ID Date Data Source [id number] 10/16/2019 12:00:00 AM EDT [facility] ([facility]) Name Value Range Interpretation Code Description Data Supporting Source(s) Document(s ) Ferritin, 133 ng/mL Normal (applies to MEDGEN (St Serum non-numeric [facility] results) [facility], [facility]) ID Date Data Source [id number] 10/16/2019 12:00:00 AM EDT [facility] ([facility]) Name Value Range Interpretation Code Description Data Supporting Source(s) Document(s ) JAMAR Direct Negative Normal (applies to MEDGEN (St non-numeric [facility] results) Medical, ) ID Date Data Source [id number] 10/16/2019 12:00:00 AM EDT [facility] ([facility]) Name Value Range Interpretation Description Data Sup porting Code Source(s) Document(s ) Deprecated 4.0 mg/dL Normal (applies to MEDGEN (St Phosphorus non-numeric [facility] [Mass/time] in results) Medical, ) 24 hour Urine ID Date Data Source [id number] 10/16/2019 12:00:00 AM EDT [facility] ([facility]) Name Value Range Interpretation Code Description Data Kimberly rce(s) Supporting Document(s ) Comment: Normal (applies to MEDGEN (St non-numeric results) [facility]) ID Date Data Source [id number] 10/16/2019 12:00:00 AM EDT [facility] ([facility]) Name Value Range Interpretation Code Description Data Kimberly rce(s) Supporting Document(s ) HCV Ab <0.1 Normal (applies to MEDGEN (St non-numeric results) [facility]) ID Date Data Source [id number] 10/16/2019 12:00:00 AM EDT [facility] ([facility]) Name Value Range Interpretation Code Description Data Kimberly rce(s) Supporting Document(s ) Anti-PLA2R <1.8 Normal (applies to MEDGEN (St non-numeric results) [facility], ) ID Date Data Source [id number] 10/16/2019 12:00:00 AM EDT [facility] ([facility]) Name Value Range Interpretation Code Description Data Kimberly rce(s) Supporting Document(s ) JERMAINE Normal (applies to MEDGEN (St Interpreta non-numeric results) [facility], tion:U PC) ID Date Data Source [id number] 10/16/2019 12:00:00 AM EDT [facility] ([facility]) Name Value Range Interpretation Code Description Data Kimberly rce(s) Supporting Document(s ) Anti-DNA 1 IU/mL Normal (applies to MEDGEN (St (DS) Ab Qn non-numeric [facility] results) Medical, ) ID Date Data Source [id number] 10/16/2019 12:00:00 AM EDT [facility] ([facility]) Name Value Range Interpretation Description Data Sup porting Code Source(s) Document(s ) HIV Screen Non Normal (applies MEDGEN (St 4th Reactive to non-numeric [facility] Generation results) Medical, ) wRfx ID Date Data Source [id number] 10/16/2019 12:00:00 AM EDT [facility] ([facility]) Name Value Range Interpretation Description Data Sup porting Code Source(s) Document(s ) Vitamin D, 8.0 ng/mL Below low normal MEDGEN (St 25-Hydroxy [facility], ) ID Date Data Source [id number] 10/16/2019 12:00:00 AM EDT [facility] ([facility]) Name Value Range Interpretation Code Description Data Kimberly rce(s) Supporting Document(s ) RA Latex <10.0 Normal (applies to MEDGEN (St Turbid. non-numeric results) [facility], ) ID Date Data Source [id number] 10/16/2019 12:00:00 AM EDT [facility]GEN ([facility], ) Name Value Range Interpretation Description Data Sup porting Code Source(s) Document(s ) Complement C3, 117 mg/dL Normal (applies to MEDGEN (St Serum non-numeric [facility] results) Medical, ) ID Date Data Source [id number] 10/16/2019 12:00:00 AM EDT [facility] ([facility], ) Name Value Range Interpretation Description Data Sup porting Code Source(s) Document(s ) Hep B Non Reactive Normal (applies to MEDGEN ( St Surface Ab, non-numeric [facility] Qual results) [facility], ) ID Date Data Source [id number] 10/16/2019 12:00:00 AM EDT [facility] ([facility], ) Name Value Range Interpretation Description Data Sup porting Code Source(s) Document(s ) Complement C4, 33 mg/dL Normal (applies to MEDGEN (St Serum non-numeric [facility] results) [facility], ) ID Date Data Source [id number] 10/16/2019 12:00:00 AM EDT [facility] ([facility], ) Name Value Range Interpretation Description Data Sup porting Code Source(s) Document(s ) Hemoglobin A1c 6.7 % Above high normal MEDGEN (St in Blood [facility], ) ID Date Data Source [id number] 10/16/2019 12:00:00 AM EDT [facility] ([facility], ) Name Value Range Interpretation Code Description Data Kimberly rce(s) Supporting Document(s ) Normetane 256.1 Above high normal MEDGEN (St phrine, pg/mL [facility], ) Metanephr 144.2 Above high normal MEDGEN (St ine, Pl pg/mL [facility], ) ID Date Data Source [id number] 10/16/2019 12:00:00 AM EDT [facility] ([facility], ) Name Value Range Interpretation Code Description Data Supporting Source(s) Document(s ) Alb/Creat 2707 mg/g Above high normal MEDGEN (St Ratio creat [facility], ) Albumin, 4217.2 Normal (applies to MEDGEN (St Urine ug/mL non-numeric [facility] results) [facility], ) ID Date Data Source [id number] 10/16/2019 12:00:00 AM EDT [facility] ([facility], ) Name Value Range Interpretation Description Data Sup porting Code Source(s) Document(s ) Free [place] 593.88 Above high normal MEDGEN (St Lt mg/L [facility]) Free Lambda 130.75 Above high normal MEDGEN (St Lt mg/L [facility]) [place]/Lambd 4.54 Normal (applies to MEDGEN (S t a Ratio,U non-numeric [facility] results) [facility], ) ID Date Data Source [id number] 10/16/2019 12:00:00 AM EDT [facility] ([facility], ) Name Value Range Interpretation Description Data Sup porting Code Source(s) Document(s ) Free [place] 57.8 mg/L Above high normal MEDGEN (St Lt Chains,S [facility]) Free Lambda 27.9 mg/L Above high normal MEDGEN (St Lt Chains,S [facility], ) [place]/Lambd 2.07 Above high normal MEDGEN (St a Ratio,S [facility], ) ID Date Data Source [id number] 10/16/2019 12:00:00 AM EDT MEDGEN ([facility], ) Name Value Range Interpretation Description Data Sup porting Code Source(s) Document(s ) Aldosterone <1.0 Normal (applies MEDGEN (St [Molar amount] to non-numeric [facility] in Urine results) Medical, ) collected for unspecified duration Renin 0.178 Normal (applies MEDGEN (St [Enzymatic ng/mL/hr to non-numeric [facility] activity/volume results) Medical, ) ] in Plasma Aldos/Renin <5.6 Normal (applies MEDGEN (St Ratio to non-numeric [facility] results) [facility], ) ID Date Data Source [id number] 10/16/2019 12:00:00 AM EDT [facility] ([facility], ) Name Value Range Interpretation Code Description Data Supporting Source(s) Document(s ) Creatinine 155.8 Normal (applies to MEDGEN (St , Urine mg/dL non-numeric [facility] results) [facility], ) Protein/Cr 3963 mg/g Above high normal MEDGEN (St eat Ratio creat [facility], ) ID Date Data Source [id number] 10/16/2019 12:00:00 AM EDT [facility]GEN ([facility], ) Name Value Range Interpretation Description Data Sup porting Code Source(s) Document(s ) Immunofixation Normal (applies MEDGEN (S t Result, Serum to non-numeric [facility] results) [facility], ) Immunoglobulin G, 851 Normal (applies MEDGEN (St Qn, Serum mg/dL to non-numeric [facility] results) [facility], ) Immunoglobulin A, 124 Normal (applies MEDGEN (St Qn, Serum mg/dL to non-numeric [facility] results) [facility], ) Immunoglobulin M, 30 mg/dL Normal (applies MEDGEN (St Qn, Serum to non-numeric [facility] results) [facility], ) ID Date Data Source [id number] 10/16/2019 12:00:00 AM EDT MEDGEN ([facility], ) Name Value Range Interpretation Description Data Sup porting Code Source(s) Document(s ) Iron 228 ug/dL Below low normal MEDGEN (St Bind.Cap.(TIBC [facility] ) [facility], ) UIBC 191 ug/dL Normal (applies to MEDGEN (St non-numeric [facility] results) [facility], ) Iron 37 ug/dL Below low normal MEDGEN (St [Mass/volume] [facility] in Serum or Medical, ) Plasma Iron 16 % Normal (applies to MEDGEN (St saturation non-numeric [facility] [Mass results) [facility], ) Fraction] in Serum or Plasma ID Date Data Source [id number] 10/16/2019 12:00:00 AM EDT MEDGEN ([facility], ) Name Value Range Interpretation Description Data Sup porting Code Source(s) Document(s ) Albumin, U 77.5 % Normal (applies to MEDGEN (St non-numeric [facility] results) [facility], ) Protein,To 617.5 mg/dL Normal (applies to MEDGEN ( St alaina,Urine non-numeric [facility] results) [facility], ) Alpha-1-Gl 1.2 % Normal (applies to MEDGEN (St obulin, U non-numeric [facility] results) [facility], ) Alpha-2-Gl 4.9 % Normal (applies to MEDGEN (St obulin, U non-numeric [facility] results) [facility], ) Beta 10.1 % Normal (applies to MEDGEN (St Globulin, non-numeric [facility] U results) Medical, PC) Gamma 6.3 % Normal (applies to MEDGEN (St Globulin, non-numeric [facility] U results) [facility], PC) M-Porfirio, % Not Observed Normal (applies to MEDGEN (St non-numeric [facility] results) [facility], PC) Please Normal (applies to MEDGEN (St note: non-numeric [facility] results) [facility], [facility]) PDF . Normal (applies to MEDGEN (St non-numeric [facility] results) [facility], [facility]) ID Date Data Source [id number] 10/16/2019 12:00:00 AM EDT [facility] ([facility], ) Name Value Range Interpretation Description Data Sup porting Code Source(s) Document(s ) Microalbumin 3.1 g/dL Normal (applies MEDGEN (St [Mass/time] in to non-numeric [facility] Urine collected results) Medical, for unspecified PC) duration Bamac-2-Dqltfhbv 0.3 g/dL Normal (applies MEDGEN (St to non-numeric [facility] results) Medical, PC) Ngncf-9-Gpgiksry 0.8 g/dL Normal (applies MEDGEN (St to non-numeric [facility] results) [facility], PC) Gamma globulin 0.7 g/dL Normal (applies MEDGEN (S t [Mass/volume] by to non-numeric [facility] Electrophoresis results) Medical, in Urine PC) collected for unspecified duration Beta globulin 0.8 g/dL Normal (applies MEDGEN (St [Mass/volume] in to non-numeric [facility] Urine by results) Medical, Electrophoresis PC) M-Porfirio Not Normal (applies MEDGEN (St Observed to non-numeric [facility] results) Medical, PC) A/G Ratio 1.2 Normal (applies MEDGEN (St to non-numeric [facility] results) Medical, PC) Globulin, Total 2.6 g/dL Normal (applies MEDGEN ( St to non-numeric [facility] results) Medical, PC) Please note: Normal (applies MEDGEN (St to non-numeric [facility] results) Medical, PC) PDF . Normal (applies MEDGEN (St to non-numeric [facility] results) [facility], PC) ID Date Data Source [id number] 10/16/2019 12:00:00 AM EDT [facility] ([facility], ) Name Value Range Interpretation Description Data Sup porting Code Source(s) Document(s ) pH of Lower 5.0 Normal (applies MEDGEN (St respiratory to non-numeric [facility] specimen results) Medical, PC) Specific gravity 1.021 Normal (applies MEDGEN (St of Pericardial to non-numeric [facility] fluid by results) Medical, Refractometry PC) Urine-Color Yellow Normal (applies MEDGEN (St to non-numeric [facility] results) Medical, PC) Appearance of Clear Normal (applies MEDGEN (St Abdomen to non-numeric [facility] results) Medical, PC) WBC Esterase Negative Normal (applies MEDGEN (St to non-numeric [facility] results) Medical, PC) Protein Abnormal MEDGEN (St [Mass/volume] in (applies to [facility] Lower non-numeric Medical, respiratory results) PC) specimen Glucose Abnormal MEDGEN (St [Mass/volume] in (applies to [facility] Urine collected non-numeric Medical, for unspecified results) PC) duration Occult Blood Negative Normal (applies MEDGEN (St to non-numeric [facility] results) Medical, PC) Ketones Negative Normal (applies MEDGEN (St [Presence] in to non-numeric [facility] Blood by Tablet results) Medical, PC) Bilirubin Negative Normal (applies MEDGEN (St [Presence] in to non-numeric [facility] Peritoneal fluid results) Medical, PC) Urobilinogen,Nani 0.2 mg/dL Normal (applies MEDGEN (St i-Qn to non-numeric [facility] results) Medical, PC) Nitrite, Urine Negative Normal (applies MEDGEN (S t to non-numeric [facility] results) Medical, PC) Microscopic See below: Normal (applies MEDGEN (St Examination to non-numeric [facility] results) Medical, PC) ID Date Data Source [id number] 10/16/2019 12:00:00 AM EDT [facility] ([facility], ) Name Value Range Interpretation Description Data Sup porting Code Source(s) Document(s ) WBC 0-5 Normal (applies to MEDGEN (St non-numeric [facility] results) Medical, PC) RBC 0-2 Normal (applies to MEDGEN (St non-numeric [facility] results) Medical, PC) Epithelial 0-10 Normal (applies to MEDGEN (St Cells (non non-numeric [facility] renal) results) Medical, ) Mucus Threads Present Normal (applies to MEDGEN (St non-numeric [facility] results) Medical, ) Bacteria Few Normal (applies to MEDGEN (St [Presence] in non-numeric [facility] Prostatic results) Medical, ) fluid by Light microscopy ID Date Data Source [id number] 10/16/2019 12:00:00 AM EDT [facility]GEN ([facility], ) Name Value Range Interpretation Description Data Sup porting Code Source(s) Document(s ) Glucose 146 Above high MEDGEN (St [Mass/volume] in mg/dL normal [facility] Urine collected for Medical, unspecified PC) duration Urea nitrogen 25 mg/dL Above high MEDGEN (St [Mass/volume] in normal [facility] Serum or Plasma [facility], ) Creatinine 2.31 Above high MEDGEN (St [Interpretation] in mg/dL normal [facility] Urine [facility], ) eGFR If NonAfricn 31 Below low normal MEDGE N (St Am mL/min/1 [facility]'s [address] [place] [address], ) eGFR If Africn Am 36 Below low normal MEDGE N (St mL/min/1 [facility]'s .73 [facility], ) BUN/Creatinine 11 Normal (applies MEDGEN (S t Ratio to non-numeric [facility] results) Medical, ) Sodium 144 Normal (applies MEDGEN (St [Moles/volume] in mmol/L to non-numeric [facility] Serum or Plasma results) Medical, ) Potassium 3.7 Normal (applies MEDGEN (St [Mass/volume] in mmol/L to non-numeric [facility] Blood results) Medical, ) Chloride 112 Above high MEDGEN (St [Moles/volume] in mmol/L normal [facility] Serum or Plasma [facility], ) Carbon dioxide, 19 Below low normal MEDGEN (St total mmol/L [facility] [Moles/volume] in Medical, Serum or Plasma PC) Calcium 8.7 Normal (applies MEDGEN (St [Moles/volume] in mg/dL to non-numeric [facility] Urine collected for results) Medical, unspecified ) duration Protein 5.7 g/dL Below low normal MEDGEN (St [Mass/volume] in [facility] Serum or Plasma Medical, ) Microalbumin 3.6 g/dL Below low normal MEDGEN (St [Mass/time] in [facility] Urine collected for Medical, unspecified PC) duration Globulin, Total 2.1 g/dL Normal (applies MEDGEN ( St to non-numeric [facility] results) Medical, ) A/G Ratio 1.7 Normal (applies MEDGEN (St to non-numeric [facility] results) Medical, ) Bilirubin.total <0.2 Normal (applies MEDGEN ( St [Mass/volume] in to non-numeric [facility] Serum or Plasma results) Medical, ) Alkaline 140 IU/L Above high MEDGEN (St phosphatase normal [facility] [Enzymatic Medical, activity/volume] in PC) Serum, Plasma or Blood Aspartate 17 IU/L Normal (applies MEDGEN (St aminotransferase to non-numeric [facility] [Enzymatic results) Medical, activity/volume] in ) Serum or Plasma Alanine 20 IU/L Normal (applies MEDGEN (St aminotransferase to non-numeric [facility] [Enzymatic results) Medical, activity/volume] in ) Serum or Plasma ID Date Data Source [id number] 10/16/2019 12:00:00 AM EDT [facility] ([facility], ) Name Value Range Interpretation Description Data Sup porting Code Source(s) Document(s ) Leukocytes 8.0 Normal (applies MEDGEN (St [#/volume] in x10E3/uL to non-numeric [facility] Blood by results) Medical, ) Automated count Hemoglobin 9.2 g/dL Below low normal MEDGEN (St [Mass/volume] in [facility] Blood [facility], ) Erythrocytes 3.24 Below low normal MEDGEN (St [#/volume] in x10E6/uL [facility] Blood by [facility], ) Automated count Hematocrit 27.7 % Below low normal MEDGEN (St [Volume [facility] Fraction] of Medical, ) Blood by Automated count MCV 86 fL Normal (applies MEDGEN (St to non-numeric [facility] results) Medical, ) MCH 28.4 pg Normal (applies MEDGEN (St to non-numeric [facility] results) Medical, ) MCHC 33.2 Normal (applies MEDGEN (St g/dL to non-numeric [facility] results) Medical, ) RDW 13.5 % Normal (applies MEDGEN (St to non-numeric [facility] results) Medical, ) Platelets 330 Normal (applies MEDGEN (St [#/area] in x10E3/uL to non-numeric [facility] Blood by results) Medical, ) Microscopy high power field Neutrophils [#] 84 % Normal (applies MEDGEN ( St in Body fluid by to non-numeric [facility] Manual count results) [facility], ) Lymphs 10 % Normal (applies MEDGEN (St to non-numeric [facility] results) Medical, ) Eos 2 % Normal (applies MEDGEN (St to non-numeric [facility] results) Medical, ) Monocytes 4 % Normal (applies MEDGEN (St [#/volume] in to non-numeric [facility] Cord blood results) [facility], ) Basos 0 % Normal (applies MEDGEN (St to non-numeric [facility] results) [facility], ) Neutrophils 6.6 Normal (applies MEDGEN (St (Absolute) x10E3/uL to non-numeric [facility] results) [facility], ) Lymphs 0.8 Normal (applies MEDGEN (St (Absolute) x10E3/uL to non-numeric [facility] results) [facility], ) Monocytes(Absolu 0.4 Normal (applies MEDGEN (St te) x10E3/uL to non-numeric [facility] results) [facility], ) Eos (Absolute) 0.2 Normal (applies MEDGEN (S t x10E3/uL to non-numeric [facility] results) [facility], ) Baso (Absolute) 0.0 Normal (applies MEDGEN ( St x10E3/uL to non-numeric [facility] results) [facility], ) Immature 0 % Normal (applies MEDGEN (St Granulocytes to non-numeric [facility] results) Medical, ) Immature Grans 0.0 Normal (applies MEDGEN (S t (Abs) x10E3/uL to non-numeric [facility] results) [facility], ) ID Date Data Source [id number] 10/16/2019 12:00:00 AM EDT [facility] ([facility], ) Name Value Range Interpretation Code Description Data Kimberly rce(s) Supporting Document(s ) ID Date Data Source [id number] 10/16/2019 12:00:00 AM EDT [facility] ([facility], ) Name Value Range Interpretation Code Description Data Kimberly rce(s) Supporting Document(s ) PDF . Normal (applies to MEDGEN (St non-numeric results) [facility]) ID Date Data Source [id number] 10/16/2019 12:00:00 AM EDT [facility] ([facility]) Name Value Range Interpretation Code Description Data Supporting Source(s) Document(s ) PTH, Intact 83 pg/mL Above high normal [facility] ([facility]) ID Date Data Source [id number] 10/16/2019 12:00:00 AM EDT [facility] ([facility]) Name Value Range Interpretation Code Description Data Supporting Source(s) Document(s ) HBsAg Negative Normal (applies to MEDGEN (St Screen non-numeric [facility] results) Medical, PC) ID Date Data Source [id number] 10/16/2019 12:00:00 AM EDT [facility] ([facility]) Name Value Range Interpretation Code Description Data Supporting Source(s) Document(s ) Ferritin, 133 ng/mL Normal (applies to MEDGEN (St Serum non-numeric [facility] results) Medical, PC) ID Date Data Source [id number] 10/16/2019 12:00:00 AM EDT [facility] ([facility]) Name Value Range Interpretation Code Description Data Supporting Source(s) Document(s ) JAMAR Direct Negative Normal (applies to [facility] (St non-numeric [facility] results) [facility], [facility]) ID Date Data Source [id number] 10/16/2019 12:00:00 AM EDT [facility] ([facility]) Name Value Range Interpretation Description Data Sup porting Code Source(s) Document(s ) Deprecated 4.0 mg/dL Normal (applies to [facility] (St Phosphorus non-numeric [facility] [Mass/time] in results) [facility], [facility]) 24 hour Urine ID Date Data Source [id number] 10/16/2019 12:00:00 AM EDT [facility] ([facility] Name Value Range Interpretation Code Description Data Kibmerly rce(s) Supporting Document(s ) Comment: Normal (applies to [facility] (St non-numeric results) [facility], [facility]) ID Date Data Source [id number] 10/16/2019 12:00:00 AM EDT [facility] ([facility] Name Value Range Interpretation Code Description Data Kimberly rce(s) Supporting Document(s ) Creatine, 1 mg/24 hr Normal (applies to [facility] (St 24-hr Ur non-numeric [facility] results) Medical, ) HCV Ab <0.1 Normal (applies to [facility] (St non-numeric [facility] results) Medical, ) ID Date Data Source [id number] 10/16/2019 12:00:00 AM EDT [facility] ([facility], ) Name Value Range Interpretation Code Description Data Kimberly rce(s) Supporting Document(s ) Anti-PLA2R <1.8 Normal (applies to [facility] (St non-numeric results) [facility] Nd dical, ) ID Date Data Source [id number] 10/16/2019 12:00:00 AM EDT [facility] ([facility], ) Name Value Range Interpretation Code Description Data Kimberly rce(s) Supporting Document(s ) JERMAINE Normal (applies to [facility] (St Interpreta non-numeric results) [facility] ed[facility], tion:U ) ID Date Data Source [id number] 10/16/2019 12:00:00 AM EDT [facility] ([facility], ) Name Value Range Interpretation Code Description Data Kimberly rce(s) Supporting Document(s ) Anti-DNA 1 IU/mL Normal (applies to [facility] (St (DS) Ab Qn non-numeric [facility] results) Medical, ) ID Date Data Source [id number] 10/16/2019 12:00:00 AM EDT [facility] ([facility], ) Name Value Range Interpretation Description Data Sup porting Code Source(s) Document(s ) Normetanephr. 216 ug/24 Normal (applies [facility] (St ,U,24h hr to non-numeric [facility] results) Medical, ) Metanephrine, 103 ug/24 Normal (applies [facility] (St U,24hr hr to non-numeric [facility] results) Medical, ) Metanephrine, 103 ug/L Normal (applies [facility] (St Ur to non-numeric [facility] results) Medical, ) HIV Screen Non Normal (applies [facility] (St 4th Reactive to non-numeric [facility] Generation results) Medical, ) wRfx ID Date Data Source [id number] 10/16/2019 12:00:00 AM EDT [facility] ([facility], ) Name Value Range Interpretation Description Data Sup porting Code Source(s) Document(s ) Vitamin D, 8.0 ng/mL Below low normal [facility] (St 25-Hydroxy [facility], ) ID Date Data Source [id number] 10/16/2019 12:00:00 AM EDT [facility] ([facility], ) Name Value Range Interpretation Code Description Data Kimberly rce(s) Supporting Document(s ) RA Latex <10.0 Normal (applies to [facility] (St Turbid. non-numeric results) [facility], ) ID Date Data Source [id number] 10/16/2019 12:00:00 AM EDT [facility] ([facility], ) Name Value Range Interpretation Description Data Sup porting Code Source(s) Document(s ) Complement C3, 117 mg/dL Normal (applies to [facility] (St Serum non-numeric [facility] results) [facility], ) ID Date Data Source [id number] 10/16/2019 12:00:00 AM EDT [facility] ([facility], ) Name Value Range Interpretation Description Data Sup porting Code Source(s) Document(s ) Hep B Non Reactive Normal (applies to [facility] ( St Surface Ab, non-numeric [facility] Qual results) [facility], ) ID Date Data Source [id number] 10/16/2019 12:00:00 AM EDT [facility] ([facility], ) Name Value Range Interpretation Description Data Sup porting Code Source(s) Document(s ) Complement C4, 33 mg/dL Normal (applies to [facility] (St Serum non-numeric [facility] results) [facility], ) ID Date Data Source [id number] 10/16/2019 12:00:00 AM EDT [facility] ([facility], ) Name Value Range Interpretation Description Data Sup porting Code Source(s) Document(s ) Hemoglobin A1c 6.7 % Above high normal [facility] (St in Blood [facility], ) ID Date Data Source [id number] 10/16/2019 12:00:00 AM EDT [facility] ([facility], ) Name Value Range Interpretation Code Description Data Kimberly rce(s) Supporting Document(s ) Normetane 256.1 Above high normal [facility] (St phrine, pg/mL [facility] Pl [facility], ) Metanephr 144.2 Above high normal [facility] (St ine, Pl pg/mL [facility], ) ID Date Data Source [id number] 10/16/2019 12:00:00 AM EDT [facility] ([facility], ) Name Value Range Interpretation Code Description Data Supporting Source(s) Document(s ) Alb/Creat 2707 mg/g Above high normal [facility] (St Ratio creat [facility], ) Albumin, 4217.2 Normal (applies to [facility] (St Urine ug/mL non-numeric [facility] results) Medical, ) ID Date Data Source [id number] 10/16/2019 12:00:00 AM EDT [facility] ([facility], ) Name Value Range Interpretation Description Data Sup porting Code Source(s) Document(s ) eGFR If 57 Below low normal [facility] (St NonAfricn Am mL/min/1. [facility] 73 Medical, ) eGFR If Africn 65 Normal (applies [facility] (S t Am mL/min/1. to non-numeric [facility] 73 results) Medical, ) BUN/Creatinine 20 Normal (applies [facility] (S t Ratio to non-numeric [facility] results) Medical, ) Sodium 141 Normal (applies [facility] (St [Moles/volume] mmol/L to non-numeric [facility] in Serum or results) Medical, ) Plasma Potassium 4.3 Normal (applies [facility] (St [Mass/volume] mmol/L to non-numeric [facility] in Blood results) Medical, ) Chloride 103 Normal (applies [facility] (St [Moles/volume] mmol/L to non-numeric [facility] in Serum or results) Medical, ) Plasma Carbon dioxide, 22 mmol/L Normal (applies [facility] ( St total to non-numeric [facility] [Moles/volume] results) Medical, ) in Serum or Plasma Calcium 8.9 mg/dL Normal (applies [facility] (St [Moles/volume] to non-numeric [facility] in Urine results) Medical, ) collected for unspecified duration Free [place] Lt 593.88 Above high normal [facility] ( St Chains,Ur mg/L [facility], ) Free Lambda Lt 130.75 Above high normal [facility] (St [place]ains,Ur mg/L [facility], ) [place]/Lambda 4.54 Normal (applies [facility] (St Ratio,U to non-numeric [facility] results) [facility], ) ID Date Data Source [id number] 10/16/2019 12:00:00 AM EDT [facility] ([facility], ) Name Value Range Interpretation Description Data Sup porting Code Source(s) Document(s ) Free Lambda 27.9 mg/L Above high normal [facility] (St Lt Chains,S [facility], ) Free [place] 57.8 mg/L Above high normal [facility] (St Lt Chains,S [facility], ) [place]/Lambd 2.07 Above high normal [facility] (St a Ratio,S [facility], ) ID Date Data Source [id number] 10/16/2019 12:00:00 AM EDT [facility] ([facility], ) Name Value Range Interpretation Description Data Sup porting Code Source(s) Document(s ) Aldosterone <1.0 Normal (applies [facility] (St [Molar amount] to non-numeric [facility] in Urine results) [facility], ) collected for unspecified duration Renin 0.178 Normal (applies [facility] (St [Enzymatic ng/mL/hr to non-numeric [facility] activity/volume results) [facility], ) ] in Plasma Aldos/Renin <5.6 Normal (applies [facility] (St Ratio to non-numeric [facility] results) [facility], ) ID Date Data Source [id number] 10/16/2019 12:00:00 AM EDT [facility] ([facility], ) Name Value Range Interpretation Code Description Data Supporting Source(s) Document(s ) Creatinine 155.8 Normal (applies to [facility] (St , Urine mg/dL non-numeric [facility] results) [facility], ) Protein/Cr 3963 mg/g Above high normal [facility] (St eat Ratio creat [facility], ) ID Date Data Source [id number] 10/16/2019 12:00:00 AM EDT [facility] ([facility], ) Name Value Range Interpretation Description Data Sup porting Code Source(s) Document(s ) Immunofixation Normal (applies [facility] (S t Result, Serum to non-numeric [facility] results) [facility], ) Immunoglobulin G, 851 Normal (applies [facility] (St Qn, Serum mg/dL to non-numeric [facility] results) [facility], ) Immunoglobulin A, 124 Normal (applies [facility] (St Qn, Serum mg/dL to non-numeric [facility] results) [facility], ) Immunoglobulin M, 30 mg/dL Normal (applies [facility] (St Qn, Serum to non-numeric [facility] results) [facility], ) ID Date Data Source [id number] 10/16/2019 12:00:00 AM EDT [facility] ([facility], ) Name Value Range Interpretation Description Data Sup porting Code Source(s) Document(s ) Iron 228 ug/dL Below low normal [facility] (St Bind.Cap.(TIBC [facility] ) [facility], ) UIBC 191 ug/dL Normal (applies to [facility] (St non-numeric [facility] results) [facility], ) Iron 37 ug/dL Below low normal [facility] (St [Mass/volume] [facility] in Serum or Medical, ) Plasma Iron 16 % Normal (applies to [facility] (St saturation non-numeric [facility] [Mass results) [facility], ) Fraction] in Serum or Plasma ID Date Data Source [id number] 10/16/2019 12:00:00 AM EDT [facility] ([facility], ) Name Value Range Interpretation Description Data Sup porting Code Source(s) Document(s ) Protein,To 617.5 mg/dL Normal (applies to [facility] ( St alaina,Urine non-numeric [facility] results) [facility], ) Albumin, U 77.5 % Normal (applies to [facility] (St non-numeric [facility] results) [facility], ) Alpha-1-Gl 1.2 % Normal (applies to [facility] (St obulin, U non-numeric [facility] results) [facility], ) Alpha-2-Gl 4.9 % Normal (applies to [facility] (St obulin, U non-numeric [facility] results) [facility], ) Beta 10.1 % Normal (applies to [facility] (St Globulin, non-numeric [facility] U results) [facility], ) Gamma 6.3 % Normal (applies to [facility] (St Globulin, non-numeric [facility] U results) Medical, ) M-Porfirio, % Not Observed Normal (applies to [facility] (St non-numeric [facility] results) Medical, PC) Please Normal (applies to [facility] (St note: non-numeric [facility] results) [facility], PC) PDF . Normal (applies to [facility] (St non-numeric [facility] results) Medical, ) ID Date Data Source [id number] 10/16/2019 12:00:00 AM EDT [facility] ([facility], ) Name Value Range Interpretation Description Data Sup porting Code Source(s) Document(s ) Microalbumin 3.1 g/dL Normal (applies [facility] (St [Mass/time] in to non-numeric [facility] Urine collected results) Medical, for unspecified PC) duration Cdmlb-2-Kbzpshyo 0.3 g/dL Normal (applies [facility] (St to non-numeric [facility] results) Medical, PC) Fhxdo-1-Zliiacwh 0.8 g/dL Normal (applies [facility] (St to non-numeric [facility] results) Medical, PC) Beta globulin 0.8 g/dL Normal (applies [facility] (St [Mass/volume] in to non-numeric [facility] Urine by results) Medical, Electrophoresis PC) Gamma globulin 0.7 g/dL Normal (applies [facility] (S t [Mass/volume] by to non-numeric [facility] Electrophoresis results) Medical, in Urine PC) collected for unspecified duration Globulin, Total 2.6 g/dL Normal (applies [facility] ( St to non-numeric [facility] results) Medical, PC) M-Porfirio Not Normal (applies [facility] (St Observed to non-numeric [facility] results) Medical, PC) A/G Ratio 1.2 Normal (applies [facility] (St to non-numeric [facility] results) Medical, PC) Please note: Normal (applies [facility] (St to non-numeric [facility] results) [facility], PC) PDF . Normal (applies [facility] (St to non-numeric [facility] results) Medical, ) ID Date Data Source [id number] 10/16/2019 12:00:00 AM EDT [facility] ([facility], ) Name Value Range Interpretation Description Data Sup porting Code Source(s) Document(s ) WBC 0-5 Normal (applies to [facility] (St non-numeric [facility] results) Medical, ) RBC 0-2 Normal (applies to [facility] (St non-numeric [facility] results) Medical, ) Epithelial 0-10 Normal (applies to [facility] (St Cells (non non-numeric [facility] renal) results) Medical, ) Mucus Threads Present Normal (applies to [facility] (St non-numeric [facility] results) Medical, ) Bacteria Few Normal (applies to [facility] (St [Presence] in non-numeric [facility] Prostatic results) [facility], ) fluid by Light microscopy ID Date Data Source [id number] 10/16/2019 12:00:00 AM EDT [facility] ([facility], ) Name Value Range Interpretation Description Data Sup porting Code Source(s) Document(s ) Glucose 146 Above high [facility] (St [Mass/volume] in mg/dL normal [facility] Urine collected for Medical, unspecified PC) duration Urea nitrogen 25 mg/dL Above high [facility] (St [Mass/volume] in normal [facility] Serum or Plasma [facility], ) Creatinine 2.31 Above high [facility] (St [Interpretation] in mg/dL normal [facility] Urine [facility], ) eGFR If NonAfricn 31 Below low normal [facility]GE N (St Am mL/min/1 [facility]'s .73 [facility], ) eGFR If Africn Am 36 Below low normal [facility] N (St mL/min/1 [facility] .73 [facility], ) BUN/Creatinine 11 Normal (applies [facility] (S t Ratio to non-numeric [facility] results) Medical, ) Sodium 144 Normal (applies [facility] (St [Moles/volume] in mmol/L to non-numeric [facility] Serum or Plasma results) Medical, ) Potassium 3.7 Normal (applies [facility] (St [Mass/volume] in mmol/L to non-numeric [facility] Blood results) Medical, ) Chloride 112 Above high [facility] (St [Moles/volume] in mmol/L normal [facility] Serum or Plasma [facility], ) Carbon dioxide, 19 Below low normal [facility] (St total mmol/L [facility] [Moles/volume] in Medical, Serum or Plasma PC) Calcium 8.7 Normal (applies [facility] (St [Moles/volume] in mg/dL to non-numeric [facility] Urine collected for results) Medical, unspecified PC) duration Protein 5.7 g/dL Below low normal [facility] (St [Mass/volume] in [facility] Serum or Plasma Medical, ) Microalbumin 3.6 g/dL Below low normal [facility] (St [Mass/time] in [facility] Urine collected for Medical, unspecified PC) duration Globulin, Total 2.1 g/dL Normal (applies [facility] ( St to non-numeric [facility] results) Medical, ) A/G Ratio 1.7 Normal (applies [facility] (St to non-numeric [facility] results) Medical, ) Bilirubin.total <0.2 Normal (applies [facility] ( St [Mass/volume] in to non-numeric [facility] Serum or Plasma results) Medical, ) Alkaline 140 IU/L Above high [facility] (St phosphatase normal [facility] [Enzymatic Medical, activity/volume] in PC) Serum, Plasma or Blood Aspartate 17 IU/L Normal (applies [facility] (St aminotransferase to non-numeric [facility] [Enzymatic results) Medical, activity/volume] in ) Serum or Plasma Alanine 20 IU/L Normal (applies [facility] (St aminotransferase to non-numeric [facility] [Enzymatic results) Medical, activity/volume] in ) Serum or Plasma ID Date Data Source [id number] 10/16/2019 12:00:00 AM EDT [facility] ([facility], ) Name Value Range Interpretation Description Data Sup porting Code Source(s) Document(s ) Leukocytes 8.0 Normal (applies [facility] (St [#/volume] in x10E3/uL to non-numeric [facility] Blood by results) Medical, ) Automated count Hemoglobin 9.2 g/dL Below low normal [facility] (St [Mass/volume] in [facility] Blood Medical, ) Erythrocytes 3.24 Below low normal [facility] (St [#/volume] in x10E6/uL [facility] Blood by Medical, ) Automated count Hematocrit 27.7 % Below low normal [facility] (St [Volume [facility] Fraction] of Medical, ) Blood by Automated count MCV 86 fL Normal (applies [facility] (St to non-numeric [facility] results) Medical, ) MCH 28.4 pg Normal (applies [facility] (St to non-numeric [facility] results) Medical, ) MCHC 33.2 Normal (applies [facility] (St g/dL to non-numeric [facility] results) [facility], ) Platelets 330 Normal (applies [facility] (St [#/area] in x10E3/uL to non-numeric [facility] Blood by results) [facility], ) Microscopy high power field RDW 13.5 % Normal (applies [facility] (St to non-numeric [facility] results) [facility], ) Neutrophils [#] 84 % Normal (applies [facility] ( St in Body fluid by to non-numeric [facility] Manual count results) [facility], ) Lymphs 10 % Normal (applies [facility] (St to non-numeric [facility] results) [facility], ) Monocytes 4 % Normal (applies [facility] (St [#/volume] in to non-numeric [facility] Cord blood results) [facility], ) Eos 2 % Normal (applies [facility] (St to non-numeric [facility] results) [facility], ) Basos 0 % Normal (applies [facility] (St to non-numeric [facility] results) [facility], ) Neutrophils 6.6 Normal (applies [facility] (St (Absolute) x10E3/uL to non-numeric [facility] results) [facility], ) Lymphs 0.8 Normal (applies [facility] (St (Absolute) x10E3/uL to non-numeric [facility] results) [facility], ) Monocytes(Absolu 0.4 Normal (applies [facility] (St te) x10E3/uL to non-numeric [facility] results) [facility], ) Eos (Absolute) 0.2 Normal (applies [facility] (S t x10E3/uL to non-numeric [facility] results) [facility], ) Baso (Absolute) 0.0 Normal (applies [facility] ( St x10E3/uL to non-numeric [facility] results) [facility], ) Immature 0 % Normal (applies [facility] (St Granulocytes to non-numeric [facility] results) [facility], ) Immature Grans 0.0 Normal (applies [facility] (S t (Abs) x10E3/uL to non-numeric [facility] results) [facility], ) ID Date Data Source [id number] 10/16/2019 12:00:00 AM EDT [facility] ([facility], ) Name Value Range Interpretation Description Data Sup porting Code Source(s) Document(s ) Antimyeloperoxidase <9.0 Normal (applies MEDG EN (St (MPO) Abs to non-numeric [facility] results) Medical, ) Antiproteinase 3 <3.5 Normal (applies [facility] (St (MD-3) Abs to non-numeric [facility] results) Medical, ) Cytoplasmic (C-ANCA) <1:20 Normal (applies MED GEN (St to non-numeric [facility] results) Medical, ) Perinuclear (P-ANCA) <1:20 Normal (applies MED GEN (St to non-numeric [facility] results) Medical, ) Atypical pANCA <1:20 Normal (applies [facility] (S t to non-numeric [facility] results) Medical, ) ID Date Data Source [id number] 10/16/2019 12:00:00 AM EDT [facility] ([facility], ) Name Value Range Interpretation Description Data Sup porting Code Source(s) Document(s ) WBC 0-5 Normal (applies [facility] (St to non-numeric [facility] results) Medical, ) RBC 0-2 Normal (applies [facility] (St to non-numeric [facility] results) Medical, ) Epithelial 0-10 Normal (applies [facility] (St Cells (non to non-numeric [facility] renal) results) Medical, ) Casts [#/area] Present Abnormal (applies [facility] (St in Urine to non-numeric [facility] sediment by results) Medical, ) Automated count Cast Type Hyaline Normal (applies [facility] (St casts to non-numeric [facility] results) Medical, ) Mucus Threads Present Normal (applies [facility] (St to non-numeric [facility] results) Medical, ) Bacteria Few Normal (applies [facility] (St [Presence] in to non-numeric [facility] Prostatic results) Medical, ) fluid by Light microscopy ID Date Data Source [id number] 10/16/2019 12:00:00 AM EDT [facility] ([facility], ) Name Value Range Interpretation Code Description Data Kimberly rce(s) Supporting Document(s ) PDF . Normal (applies to [facility] (St non-numeric results) [facility] dicmi, ) ID Date Data Source [id number] 10/16/2019 12:00:00 AM EDT [facility] ([facility], ) Name Value Range Interpretation Code Description Data Supporting Source(s) Document(s ) PTH, Intact 83 pg/mL Above high normal [facility], ) ID Date Data Source [id number] 10/16/2019 12:00:00 AM EDT [facility] ([facility], ) Name Value Range Interpretation Code Description Data Supporting Source(s) Document(s ) HBsAg Negative Normal (applies to [facility] (St Screen non-numeric [facility] results) [facility], ) ID Date Data Source [id number] 10/16/2019 12:00:00 AM EDT [facility] ([facility], ) Name Value Range Interpretation Code Description Data Supporting Source(s) Document(s ) Ferritin, 133 ng/mL Normal (applies to [facility] (St Serum non-numeric [facility] results) Medical, ) ID Date Data Source [id number] 10/16/2019 12:00:00 AM EDT [facility] ([facility], ) Name Value Range Interpretation Code Description Data Supporting Source(s) Document(s ) JAMAR Direct Negative Normal (applies to [facility] (St non-numeric [facility] results) Medical, ) ID Date Data Source [id number] 10/16/2019 12:00:00 AM EDT [facility] ([facility], ) Name Value Range Interpretation Description Data Sup porting Code Source(s) Document(s ) Deprecated 4.0 mg/dL Normal (applies to [facility] (St Phosphorus non-numeric [facility] [Mass/time] in results) Medical, ) 24 hour Urine ID Date Data Source [id number] 10/16/2019 12:00:00 AM EDT [facility] ([facility], ) Name Value Range Interpretation Description Data Sup porting Code Source(s) Document(s ) pH of Lower 5.0 Normal (applies [facility] (St respiratory to non-numeric [facility] specimen results) Medical, ) Appearance of Clear Normal (applies [facility] (St Abdomen to non-numeric [facility] results) Medical, ) Urine-Color Yellow Normal (applies [facility] (St to non-numeric [facility] results) Medical, ) WBC Esterase Negative Normal (applies [facility] (St to non-numeric [facility] results) Medical, ) Protein Abnormal (applies [facility] (St [Mass/volume] to non-numeric Dony's in Lower results) [facility]) respiratory specimen Ketones Negative Normal (applies [facility] (St [Presence] in to non-numeric [facility] Blood by results) [facility]) Tablet Glucose Abnormal (applies [facility] (St [Mass/volume] to non-numeric Dony's in Urine results) [facility]) collected for unspecified duration Occult Blood Negative Normal (applies [facility] (St to non-numeric Dony's results) [facility]) Urobilinogen,S 1.0 mg/dL Normal (applies [facility] (S t mere-Qn to non-numeric Dony's results) [facility]) Bilirubin Negative Normal (applies [facility] (St [Presence] in to non-numeric Dony's Peritoneal results) [facility]) fluid Nitrite, Urine Negative Normal (applies [facility] (S t to non-numeric Dony's results) [facility]) Microscopic See below: Normal (applies [facility] (St Examination to non-numeric Dony's results) [facility], ) Comment: Normal (applies [facility] (St to non-numeric Dony's results) [facility]) ID Date Data Source [id number] 10/16/2019 12:00:00 AM EDT [facility] ([facility], ) Name Value Range Interpretation Code Description Data Kimberly rce(s) Supporting Document(s ) HCV Ab <0.1 Normal (applies to [facility] (St non-numeric results) [facility], ) ID Date Data Source [id number] 10/16/2019 12:00:00 AM EDT [facility] ([facility], ) Name Value Range Interpretation Code Description Data Kimberly rce(s) Supporting Document(s ) Anti-PLA2R <1.8 Normal (applies to [facility] (St non-numeric results) [facility], ) ID Date Data Source [id number] 10/16/2019 12:00:00 AM EDT [facility] ([facility], ) Name Value Range Interpretation Code Description Data Kimberly rce(s) Supporting Document(s ) JERMAINE Normal (applies to [facility] (St Interpreta non-numeric results) [facility], tion:U ) ID Date Data Source [id number] 10/16/2019 12:00:00 AM EDT [facility] ([facility], ) Name Value Range Interpretation Code Description Data Kimberly rce(s) Supporting Document(s ) Anti-DNA 1 IU/mL Normal (applies to [facility] (St (DS) Ab Qn non-numeric [facility]'s results) Medical, ) ID Date Data Source [id number] 10/16/2019 12:00:00 AM EDT [facility] ([facility], ) Name Value Range Interpretation Description Data Sup porting Code Source(s) Document(s ) HIV Screen Non Normal (applies [facility] (St 4th Reactive to non-numeric [facility]'s Generation results) Medical, ) wRfx ID Date Data Source [id number] 10/16/2019 12:00:00 AM EDT [facility] ([facility], ) Name Value Range Interpretation Description Data Sup porting Code Source(s) Document(s ) Vitamin D, 8.0 ng/mL Below low normal [facility] (St 25-Hydroxy [facility], ) ID Date Data Source [id number] 10/16/2019 12:00:00 AM EDT [facility] ([facility], ) Name Value Range Interpretation Code Description Data Kimberly rce(s) Supporting Document(s ) RA Latex <10.0 Normal (applies to [facility] (St Turbid. non-numeric results) [facility], ) ID Date Data Source [id number] 10/16/2019 12:00:00 AM EDT [facility] ([facility], ) Name Value Range Interpretation Description Data Sup porting Code Source(s) Document(s ) Complement C3, 117 mg/dL Normal (applies to [facility] (St Serum non-numeric [facility]ony's results) Medical, ) ID Date Data Source [id number] 10/16/2019 12:00:00 AM EDT [facility] ([facility], ) Name Value Range Interpretation Description Data Sup porting Code Source(s) Document(s ) Hep B Non Reactive Normal (applies to [facility] ( St Surface Ab, non-numeric [facility] Qual results) Medical, ) ID Date Data Source [id number] 10/16/2019 12:00:00 AM EDT [facility] ([facility], ) Name Value Range Interpretation Description Data Sup porting Code Source(s) Document(s ) Complement C4, 33 mg/dL Normal (applies to [facility] (St Serum non-numeric Dony's results) [facility], ) ID Date Data Source [id number] 10/16/2019 12:00:00 AM EDT [facility] ([facility], ) Name Value Range Interpretation Description Data Sup porting Code Source(s) Document(s ) Hemoglobin A1c 6.7 % Above high normal [facility] (St in Blood [facility], ) ID Date Data Source [id number] 10/16/2019 12:00:00 AM EDT [facility] ([facility], ) Name Value Range Interpretation Code Description Data Kimberly rce(s) Supporting Document(s ) Normetane 256.1 Above high normal [facility] (St phrine, pg/mL Dony[facility] Pl [facility], ) Metanephr 144.2 Above high normal [facility] (St ine, Pl pg/mL [facility], ) ID Date Data Source [id number] 10/16/2019 12:00:00 AM EDT [facility] ([facility], ) Name Value Range Interpretation Code Description Data Supporting Source(s) Document(s ) Alb/Creat 2707 mg/g Above high normal [facility] (St Ratio creat [facility], ) Albumin, 4217.2 Normal (applies to [facility] (St Urine ug/mL non-numeric Dony's results) [facility], ) ID Date Data Source [id number] 10/16/2019 12:00:00 AM EDT [facility] ([facility], ) Name Value Range Interpretation Description Data Sup porting Code Source(s) Document(s ) Free [place] 593.88 Above high normal [facility] (St Lt mg/L [facility], ) Free Lambda 130.75 Above high normal [facility] (St Lt mg/L [facility], ) [place]/Lambd 4.54 Normal (applies to [facility] (S t a Ratio,U non-numeric Dony's results) [facility], ) ID Date Data Source [id number] 10/16/2019 12:00:00 AM EDT [facility] ([facility], ) Name Value Range Interpretation Description Data Sup porting Code Source(s) Document(s ) VLDL 24 mg/dL Normal (applies [facility] (St Cholesterol Vasile to non-numeric Dony's results) [facility], ) LDL Cholesterol 112 mg/dL Above high normal [facility] (St Calc [facility], ) Free Lambda Lt 27.9 mg/L Above high normal [facility] (St Chains,S [facility], ) Free [place] Lt 57.8 mg/L Above high normal [facility] ( St Chains,S [facility], ) [place]/Lambda 2.07 Above high normal [facility] (S t Ratio,S [facility]) ID Date Data Source [id number] 10/16/2019 12:00:00 AM EDT [facility] ([facility], ) Name Value Range Interpretation Description Data Sup porting Code Source(s) Document(s ) Aldosterone <1.0 Normal (applies [facility] (St [Molar amount] to non-numeric Dony[facility] in Urine results) [facility], ) collected for unspecified duration Renin 0.178 Normal (applies [facility] (St [Enzymatic ng/mL/hr to non-numeric Odny's activity/volume results) [facility], ) ] in Plasma Aldos/Renin <5.6 Normal (applies [facility] (St Ratio to non-numeric Dony's results) [facility], ) ID Date Data Source [id number] 10/16/2019 12:00:00 AM EDT [facility] ([facility], ) Name Value Range Interpretation Code Description Data Supporting Source(s) Document(s ) Creatinine 155.8 Normal (applies to [facility] (St , Urine mg/dL non-numeric Dony's results) [facility], ) Protein/Cr 3963 mg/g Above high normal [facility] (St eat Ratio creat [facility]) ID Date Data Source [id number] 10/16/2019 12:00:00 AM EDT [facility] ([facility], ) Name Value Range Interpretation Description Data Sup porting Code Source(s) Document(s ) Immunoglobulin G, 851 Normal (applies [facility] (St Qn, Serum mg/dL to non-numeric Dony's results) [facility], ) Immunofixation Normal (applies [facility] (S t Result, Serum to non-numeric Dony's results) [facility], ) Immunoglobulin A, 124 Normal (applies [facility] (St Qn, Serum mg/dL to non-numeric Dony's results) [facility], ) Immunoglobulin M, 30 mg/dL Normal (applies [facility] (St Qn, Serum to non-numeric Dony's results) [facility], ) ID Date Data Source [id number] 10/16/2019 12:00:00 AM EDT [facility] ([facility], ) Name Value Range Interpretation Description Data Sup porting Code Source(s) Document(s ) Iron 228 ug/dL Below low normal [facility] (St Bind.Cap.(TIBC Doyn's ) [facility], ) UIBC 191 ug/dL Normal (applies to [facility] (St non-numeric Dony's results) [facility], ) Iron 37 ug/dL Below low normal [facility] (St [Mass/volume] Dony[facility] in Serum or [facility], ) Plasma Iron 16 % Normal (applies to [facility] (St saturation non-numeric Dony's [Mass results) [facility], ) Fraction] in Serum or Plasma ID Date Data Source [id number] 10/16/2019 12:00:00 AM EDT [facility] ([facility], ) Name Value Range Interpretation Description Data Sup porting Code Source(s) Document(s ) Protein,To 617.5 mg/dL Normal (applies to [facility] ( St alaina,Urine non-numeric Dony's results) [facility], ) Albumin, U 77.5 % Normal (applies to [facility] (St non-numeric Dony's results) [facility], ) Alpha-1-Gl 1.2 % Normal (applies to [facility] (St obulin, U non-numeric Dony's results) [facility], ) Alpha-2-Gl 4.9 % Normal (applies to [facility] (St obulin, U non-numeric Dony's results) [facility], ) Beta 10.1 % Normal (applies to [facility] (St Globulin, non-numeric Dony's U results) [facility], ) Gamma 6.3 % Normal (applies to [facility] (St Globulin, non-numeric Dony's U results) [facility], ) M-Porfirio, % Not Observed Normal (applies to [facility] (St non-numeric Dony's results) [facility], ) PDF . Normal (applies to [facility] (St non-numeric Dony's results) Medical, PC) Please Normal (applies to [facility] (St note: non-numeric Dony's results) Medical, PC) ID Date Data Source [id number] 10/16/2019 12:00:00 AM EDT [facility] ([facility]) Name Value Range Interpretation Description Data Sup porting Code Source(s) Document(s ) Microalbumin 3.1 g/dL Normal (applies [facility] (St [Mass/time] in to non-numeric Dony's Urine collected results) Medical, for unspecified PC) duration Oopks-1-Kdckhtxb 0.3 g/dL Normal (applies [facility] (St to non-numeric Dony's results) Medical, PC) Ewdhs-2-Tnuqmswv 0.8 g/dL Normal (applies [facility] (St to non-numeric Dony's results) Medical, PC) Gamma globulin 0.7 g/dL Normal (applies [facility] (S t [Mass/volume] by to non-numeric Dony's Electrophoresis results) Medical, in Urine PC) collected for unspecified duration Beta globulin 0.8 g/dL Normal (applies [facility] (St [Mass/volume] in to non-numeric [facility] Urine by results) Medical, Electrophoresis PC) M-Porfirio Not Normal (applies [facility] (St Observed to non-numeric Dony's results) Medical, PC) A/G Ratio 1.2 Normal (applies [facility] (St to non-numeric Dony's results) Medical, PC) Globulin, Total 2.6 g/dL Normal (applies [facility] ( St to non-numeric Dony's results) Medical, PC) Please note: Normal (applies [facility] (St to non-numeric Dony's results) Medical, PC) PDF . Normal (applies [facility] (St to non-numeric Dony's results) Medical, PC) ID Date Data Source [id number] 10/16/2019 12:00:00 AM EDT [facility] ([facility]) Name Value Range Interpretation Description Data Sup porting Code Source(s) Document(s ) pH of Lower 5.0 Normal (applies [facility] (St respiratory to non-numeric Dony's specimen results) Medical, PC) Specific gravity 1.021 Normal (applies [facility] (St of Pericardial to non-numeric Dony's fluid by results) Medical, Refractometry PC) Urine-Color Yellow Normal (applies [facility] (St to non-numeric Dony's results) Medical, ) Appearance of Clear Normal (applies [facility] (St Abdomen to non-numeric Dony's results) Medical, ) WBC Esterase Negative Normal (applies [facility] (St to non-numeric Dony's results) Medical, ) Protein Abnormal [facility] (St [Mass/volume] in (applies to Dony's Lower non-numeric Medical, respiratory results) ) specimen Glucose Abnormal [facility] (St [Mass/volume] in (applies to Dony's Urine collected non-numeric Medical, for unspecified results) ) duration Ketones Negative Normal (applies [facility] (St [Presence] in to non-numeric Dony's Blood by Tablet results) Medical, ) Occult Blood Negative Normal (applies [facility] (St to non-numeric Dony's results) Medical, ) Bilirubin Negative Normal (applies [facility] (St [Presence] in to non-numeric Dony's Peritoneal fluid results) Medical, ) Urobilinogen,Nani 0.2 mg/dL Normal (applies [facility] (St i-Qn to non-numeric Dony's results) Medical, ) Nitrite, Urine Negative Normal (applies [facility] (S t to non-numeric Dony's results) Medical, ) Microscopic See below: Normal (applies [facility] (St Examination to non-numeric Dony's results) Medical, ) ID Date Data Source [id number] 10/16/2019 12:00:00 AM EDT [facility] ([facility], ) Name Value Range Interpretation Description Data Sup porting Code Source(s) Document(s ) WBC 0-5 Normal (applies to [facility] (St non-numeric Dony's results) Medical, ) RBC 0-2 Normal (applies to [facility] (St non-numeric Dony's results) Medical, ) Epithelial 0-10 Normal (applies to [facility] (St Cells (non non-numeric Dony's renal) results) Medical, ) Mucus Threads Present Normal (applies to [facility] (St non-numeric Dony's results) Medical, ) Bacteria Few Normal (applies to [facility] (St [Presence] in non-numeric Dony's Prostatic results) Medical, ) fluid by Light microscopy ID Date Data Source [id number] 10/16/2019 12:00:00 AM EDT [facility] ([facility], ) Name Value Range Interpretation Description Data Sup porting Code Source(s) Document(s ) Glucose 146 Above high [facility] (St [Mass/volume] in mg/dL normal Dony's Urine collected for Medical, unspecified PC) duration Urea nitrogen 25 mg/dL Above high [facility] (St [Mass/volume] in normal Dony's Serum or Plasma Medical, ) Creatinine 2.31 Above high [facility] (St [Interpretation] in mg/dL normal [facility] Urine Medical, ) eGFR If NonAfricn 31 Below low normal MEDGE N (St Am mL/min/[address], ) eGFR If Africn Am 36 Below low normal MEDGE N (St mL/min/1 [facility], ) BUN/Creatinine 11 Normal (applies MEDGEN (S t Ratio to non-numeric Dony's results) Medical, ) Sodium 144 Normal (applies [facility] (St [Moles/volume] in mmol/L to non-numeric Dony's Serum or Plasma results) Medical, ) Potassium 3.7 Normal (applies [facility] (St [Mass/volume] in mmol/L to non-numeric Dony's Blood results) Medical, ) Chloride 112 Above high [facility] (St [Moles/volume] in mmol/L normal Dony's Serum or Plasma [facility], ) Carbon dioxide, 19 Below low normal [facility] (St total mmol/L Dony's [Moles/volume] in Medical, Serum or Plasma PC) Protein 5.7 g/dL Below low normal [facility] (St [Mass/volume] in Dony's Serum or Plasma Medical, ) Calcium 8.7 Normal (applies [facility] (St [Moles/volume] in mg/dL to non-numeric Odny's Urine collected for results) Medical, unspecified PC) duration Microalbumin 3.6 g/dL Below low normal [facility] (St [Mass/time] in Dony's Urine collected for Medical, unspecified PC) duration Globulin, Total 2.1 g/dL Normal (applies [facility] ( St to non-numeric Dony's results) Medical, ) A/G Ratio 1.7 Normal (applies [facility] (St to non-numeric Dony's results) Medical, PC) Alkaline 140 IU/L Above high [facility] (St phosphatase normal Dony's [Enzymatic Medical, activity/volume] in ) Serum, Plasma or Blood Bilirubin.total <0.2 Normal (applies [facility] ( St [Mass/volume] in to non-numeric Dony's Serum or Plasma results) [facility], ) Aspartate 17 IU/L Normal (applies [facility] (St aminotransferase to non-numeric Dony's [Enzymatic results) Medical, activity/volume] in ) Serum or Plasma Alanine 20 IU/L Normal (applies [facility] (St aminotransferase to non-numeric Dony's [Enzymatic results) Medical, activity/volume] in ) Serum or Plasma ID Date Data Source [id number] 10/16/2019 12:00:00 AM EDT [facility] ([facility], ) Name Value Range Interpretation Description Data Sup porting Code Source(s) Document(s ) Leukocytes 8.0 Normal (applies MED[facility] (St [#/volume] in x10E3/uL to non-numeric Dony's Blood by results) [facility], ) Automated count Hemoglobin 9.2 g/dL Below low normal [facility] (St [Mass/volume] in Dony's Blood [facility], ) Erythrocytes 3.24 Below low normal [facility] (St [#/volume] in x10E6/uL Dony's Blood by [facility], ) Automated count Hematocrit 27.7 % Below low normal [facility] (St [Volume Dony's Fraction] of [facility], ) Blood by Automated count MCV 86 fL Normal (applies [facility] (St to non-numeric Dony's results) [facility], ) MCHC 33.2 Normal (applies [facility] (St g/dL to non-numeric Dony's results) [facility], ) MCH 28.4 pg Normal (applies [facility] (St to non-numeric Dony's results) [facility], ) RDW 13.5 % Normal (applies [facility] (St to non-numeric Dony's results) [facility], ) Neutrophils [#] 84 % Normal (applies [facility] ( St in Body fluid by to non-numeric Dony's Manual count results) [facility], ) Platelets 330 Normal (applies [facility] (St [#/area] in x10E3/uL to non-numeric Dony's Blood by results) [facility], ) Microscopy high power field Lymphs 10 % Normal (applies [facility] (St to non-numeric Dony's results) Medical, ) Monocytes 4 % Normal (applies [facility] (St [#/volume] in to non-numeric Dony's Cord blood results) Medical, ) Basos 0 % Normal (applies [facility] (St to non-numeric Dony's results) Medical, ) Eos 2 % Normal (applies [facility] (St to non-numeric Dony's results) Medical, ) Neutrophils 6.6 Normal (applies MED[facility] (St (Absolute) x10E3/uL to non-numeric Dony's results) Medical, ) Lymphs 0.8 Normal (applies [facility] (St (Absolute) x10E3/uL to non-numeric Dony's results) Medical, ) Eos (Absolute) 0.2 Normal (applies MEDGEN (S t x10E3/uL to non-numeric Dony's results) Medical, ) Monocytes(Absolu 0.4 Normal (applies MEDGEN (St te) x10E3/uL to non-numeric Dony's results) Medical, ) Baso (Absolute) 0.0 Normal (applies [facility] ( St x10E3/uL to non-numeric Dony's results) Medical, ) Immature Grans 0.0 Normal (applies MEDGEN (S t (Abs) x10E3/uL to non-numeric Dony's results) Medical, ) Immature 0 % Normal (applies [facility] (St Granulocytes to non-numeric Dony's results) [facility], ) ID Date Data Source [id number] 10/16/2019 12:00:00 AM EDT [facility] ([facility], ) Name Value Range Interpretation Description Data Sup porting Code Source(s) Document(s ) Antimyeloperoxidase <9.0 Normal (applies MEDG EN (St (MPO) Abs to non-numeric Dony's results) Medical, ) Antiproteinase 3 <3.5 Normal (applies [facility] (St (MD-3) Abs to non-numeric Dony's results) Medical, ) Cytoplasmic (C-ANCA) <1:20 Normal (applies MED GEN (St to non-numeric Dony's results) Medical, ) Perinuclear (P-ANCA) <1:20 Normal (applies MED GEN (St to non-numeric Dony's results) Medical, ) Atypical pANCA <1:20 Normal (applies [facility] (S t to non-numeric Dony's results) Medical, ) ID Date Data Source [id number] 10/16/2019 12:00:00 AM EDT [facility] ([facility]) Name Value Range Interpretation Code Description Data Kimberly rce(s) Supporting Document(s ) ID Date Data Source [id number] 10/16/2019 12:00:00 AM EDT [facility] ([facility]) Name Value Range Interpretation Code Description Data Kimberly rce(s) Supporting Document(s ) PDF . Normal (applies to [facility] (St non-numeric results) [facility], PC) ID Date Data Source [id number] 10/16/2019 12:00:00 AM EDT [facility] ([facility]) Name Value Range Interpretation Code Description Data Supporting Source(s) Document(s ) PTH, Intact 83 pg/mL Above high normal [facility] ([facility]ica[facility], PC) ID Date Data Source [id number] 10/16/2019 12:00:00 AM EDT [facility] ([facility]) Name Value Range Interpretation Code Description Data Supporting Source(s) Document(s ) HBsAg Negative Normal (applies to MED[facility] (St Screen non-numeric Dony's results) Medical, PC) ID Date Data Source [id number] 10/16/2019 12:00:00 AM EDT [facility] ([facility]) Name Value Range Interpretation Code Description Data Supporting Source(s) Document(s ) Ferritin, 133 ng/mL Normal (applies to [facility] (St Serum non-numeric Dony's results) Medical, PC) ID Date Data Source [id number] 10/16/2019 12:00:00 AM EDT [facility] ([facility]) Name Value Range Interpretation Code Description Data Supporting Source(s) Document(s ) JAMAR Direct Negative Normal (applies to [facility] (St non-numeric Dony's results) Medical, PC) ID Date Data Source [id number] 10/16/2019 12:00:00 AM EDT [facility] ([facility]) Name Value Range Interpretation Description Data Sup porting Code Source(s) Document(s ) Deprecated 4.0 mg/dL Normal (applies to MED[facility] (St Phosphorus non-numeric Dony's [Mass/time] in results) Medical, PC) 24 hour Urine ID Date Data Source [id number] 10/16/2019 12:00:00 AM EDT [facility] ([facility]) Name Value Range Interpretation Code Description Data Kimberly rce(s) Supporting Document(s ) Comment: Normal (applies to [facility] (St non-numeric results) [facility], [facility]) ID Date Data Source [id number] 10/16/2019 12:00:00 AM EDT [facility] ([facility]) Name Value Range Interpretation Code Description Data Kimberly rce(s) Supporting Document(s ) HCV Ab <0.1 Normal (applies to [facility] (St non-numeric results) [facility], PC) ID Date Data Source [id number] 10/16/2019 12:00:00 AM EDT [facility] ([facility]) Name Value Range Interpretation Code Description Data Kimberly rce(s) Supporting Document(s ) Anti-PLA2R <1.8 Normal (applies to [facility] (St non-numeric results) [facility] Nd dical, PC) ID Date Data Source [id number] 10/16/2019 12:00:00 AM EDT [facility] ([facility]) Name Value Range Interpretation Code Description Data Kimberly rce(s) Supporting Document(s ) JERMAINE Normal (applies to [facility] (St Interpreta non-numeric results) [facility], tion:U PC) ID Date Data Source [id number] 10/16/2019 12:00:00 AM EDT [facility] ([facility]) Name Value Range Interpretation Code Description Data Kimberly rce(s) Supporting Document(s ) Anti-DNA 1 IU/mL Normal (applies to [facility] (St (DS) Ab Qn non-numeric [facility] results) [facility]) ID Date Data Source [id number] 10/16/2019 12:00:00 AM EDT [facility] ([facility]) Name Value Range Interpretation Description Data Sup porting Code Source(s) Document(s ) HIV Screen Non Normal (applies [facility] (St 4th Reactive to non-numeric [facility] Generation results) [facility], [facility]) wRfx ID Date Data Source [id number] 10/16/2019 12:00:00 AM EDT [facility] ([facility] Name Value Range Interpretation Code Description Data Kimberly rce(s) Supporting Document(s ) ID Date Data Source [id number] 10/16/2019 12:00:00 AM EDT [facility] ([facility] Name Value Range Interpretation Code Description Data Kimberly rce(s) Supporting Document(s ) PDF . Normal (applies to [facility] (St non-numeric results) [facility]) ID Date Data Source [id number] 10/16/2019 12:00:00 AM EDT [facility] ([facility] Name Value Range Interpretation Code Description Data Supporting Source(s) Document(s ) PTH, Intact 83 pg/mL Above high normal [facility] ([facility]) ID Date Data Source [id number] 10/16/2019 12:00:00 AM EDT [facility] ([facility] Name Value Range Interpretation Code Description Data Supporting Source(s) Document(s ) HBsAg Negative Normal (applies to [facility] (St Screen non-numeric [facility] results) [facility]) ID Date Data Source [id number] 10/16/2019 12:00:00 AM EDT [facility] ([facility]) Name Value Range Interpretation Code Description Data Supporting Source(s) Document(s ) Ferritin, 133 ng/mL Normal (applies to [facility] (St Serum non-numeric [facility] results) [facility]) ID Date Data Source [id number] 10/16/2019 12:00:00 AM EDT [facility] ([facility] Name Value Range Interpretation Code Description Data Supporting Source(s) Document(s ) JAMAR Direct Negative Normal (applies to [facility] (St non-numeric [facility] results) [facility], [facility]) ID Date Data Source [id number] 10/16/2019 12:00:00 AM EDT [facility] ([facility]) Name Value Range Interpretation Description Data Sup porting Code Source(s) Document(s ) Deprecated 4.0 mg/dL Normal (applies to [facility] (St Phosphorus non-numeric [facility] [Mass/time] in results) [facility], [facility]) 24 hour Urine ID Date Data Source [id number] 10/16/2019 12:00:00 AM EDT [facility] ([facility] Name Value Range Interpretation Code Description Data Kimberly rce(s) Supporting Document(s ) ID Date Data Source [id number] 10/16/2019 12:00:00 AM EDT [facility] ([facility] Name Value Range Interpretation Code Description Data Kimberly rce(s) Supporting Document(s ) HCV Ab <0.1 Normal (applies to [facility] (St non-numeric results) [facility], ) ID Date Data Source [id number] 10/16/2019 12:00:00 AM EDT [facility] Name Value Range Interpretation Code Description Data Kimberly rce(s) Supporting Document(s ) Anti-PLA2R <1.8 Normal (applies to [facility] (St non-numeric results) [facility], ) ID Date Data Source [id number] 10/16/2019 12:00:00 AM EDT [facility] Name Value Range Interpretation Code Description Data Kimberly rce(s) Supporting Document(s ) ID Date Data Source [id number] 10/16/2019 12:00:00 AM EDT [facility] Name Value Range Interpretation Code Description Data Kimberly rce(s) Supporting Document(s ) Anti-DNA 1 IU/mL Normal (applies to [facility] (St (DS) Ab Qn non-numeric [facility] results) [facility], ) ID Date Data Source [id number] 10/16/2019 12:00:00 AM EDT [facility] Name Value Range Interpretation Description Data Sup porting Code Source(s) Document(s ) HIV Screen Non Normal (applies [facility] (St 4th Reactive to non-numeric [facility] Generation results) Medical, ) wRfx ID Date Data Source [id number] 10/16/2019 12:00:00 AM EDT [facility] Name Value Range Interpretation Description Data Sup porting Code Source(s) Document(s ) Vitamin D, 8.0 ng/mL Below low normal [facility] (St 25-Hydroxy [facility], ) ID Date Data Source [id number] 10/16/2019 12:00:00 AM EDT [facility] Name Value Range Interpretation Code Description Data Kimberly rce(s) Supporting Document(s ) RA Latex <10.0 Normal (applies to [facility] (St Turbid. non-numeric results) [facility], ) ID Date Data Source [id number] 10/16/2019 12:00:00 AM EDT [facility] ([facility], ) Name Value Range Interpretation Description Data Sup porting Code Source(s) Document(s ) Complement C3, 117 mg/dL Normal (applies to [facility] (St Serum non-numeric [facility] results) [facility], ) ID Date Data Source [id number] 10/16/2019 12:00:00 AM EDT [facility] ([facility], ) Name Value Range Interpretation Description Data Sup porting Code Source(s) Document(s ) Hep B Non Reactive Normal (applies to [facility] ( St Surface Ab, non-numeric [facility] Qual results) Medical, ) ID Date Data Source [id number] 10/16/2019 12:00:00 AM EDT [facility] ([facility], ) Name Value Range Interpretation Description Data Sup porting Code Source(s) Document(s ) Complement C4, 33 mg/dL Normal (applies to [facility] (St Serum non-numeric [facility] results) [facility], ) ID Date Data Source [id number] 10/16/2019 12:00:00 AM EDT [facility] ([facility], ) Name Value Range Interpretation Description Data Sup porting Code Source(s) Document(s ) Hemoglobin A1c 6.7 % Above high normal [facility] (St in Blood [facility], ) ID Date Data Source [id number] 10/16/2019 12:00:00 AM EDT [facility] ([facility], ) Name Value Range Interpretation Code Description Data Kimberly rce(s) Supporting Document(s ) Normetane 256.1 Above high normal [facility] (St phrine, pg/mL [facility], ) Metanephr 144.2 Above high normal [facility] (St ine, Pl pg/mL [facility], ) ID Date Data Source [id number] 10/16/2019 12:00:00 AM EDT [facility] ([facility], ) Name Value Range Interpretation Code Description Data Supporting Source(s) Document(s ) Alb/Creat 2707 mg/g Above high normal [facility] (St Ratio creat [facility], ) Albumin, 4217.2 Normal (applies to [facility] (St Urine ug/mL non-numeric [facility] results) [facility], ) ID Date Data Source [id number] 10/16/2019 12:00:00 AM EDT [facility] ([facility], ) Name Value Range Interpretation Description Data Sup porting Code Source(s) Document(s ) Free [place] 593.88 Above high normal [facility] (St Lt mg/L [facility], ) Free Lambda 130.75 Above high normal [facility] (St Lt mg/L [facility],Ur [facility], ) [place]/Lambd 4.54 Normal (applies to [facility] (S t a Ratio,U non-numeric [facility] results) [facility], ) ID Date Data Source [id number] 10/16/2019 12:00:00 AM EDT [facility] ([facility], ) Name Value Range Interpretation Description Data Sup porting Code Source(s) Document(s ) Free [place] 57.8 mg/L Above high normal [facility] (St Lt Chains,S [facility], ) Free Lambda 27.9 mg/L Above high normal [facility] (St Lt Chains,S [facility], ) [place]/Lambd 2.07 Above high normal [facility] (St a Ratio,S [facility], ) ID Date Data Source [id number] 10/16/2019 12:00:00 AM EDT [facility] ([facility], ) Name Value Range Interpretation Description Data Sup porting Code Source(s) Document(s ) Aldosterone <1.0 Normal (applies [facility] (St [Molar amount] to non-numeric [facility] in Urine results) [facility], ) collected for unspecified duration Renin 0.178 Normal (applies [facility] (St [Enzymatic ng/mL/hr to non-numeric [facility] activity/volume results) [facility], ) ] in Plasma Aldos/Renin <5.6 Normal (applies [facility] (St Ratio to non-numeric [facility] results) [facility], ) ID Date Data Source [id number] 10/16/2019 12:00:00 AM EDT [facility] ([facility], ) Name Value Range Interpretation Code Description Data Supporting Source(s) Document(s ) Creatinine 155.8 Normal (applies to [facility] (St , Urine mg/dL non-numeric [facility] results) [facility], ) Protein/Cr 3963 mg/g Above high normal [facility] (St eat Ratio creat [facility], ) ID Date Data Source [id number] 10/16/2019 12:00:00 AM EDT [facility] ([facility], ) Name Value Range Interpretation Description Data Sup porting Code Source(s) Document(s ) Immunoglobulin G, 851 Normal (applies [facility] (St Qn, Serum mg/dL to non-numeric [facility] results) [facility], ) Immunoglobulin A, 124 Normal (applies [facility] (St Qn, Serum mg/dL to non-numeric [facility] results) [facility], ) Immunoglobulin M, 30 mg/dL Normal (applies [facility] (St Qn, Serum to non-numeric [facility] results) [facility], ) ID Date Data Source [id number] 10/16/2019 12:00:00 AM EDT [facility] ([facility], ) Name Value Range Interpretation Description Data Sup porting Code Source(s) Document(s ) UIBC 191 ug/dL Normal (applies to [facility] (St non-numeric [facility] results) [facility], ) Iron 228 ug/dL Below low normal [facility] (St Bind.Cap.(TIBC [facility] ) [facility], ) Iron 37 ug/dL Below low normal [facility] (St [Mass/volume] [facility] in Serum or Medical, ) Plasma Iron 16 % Normal (applies to [facility] (St saturation non-numeric [facility] [Mass results) [facility], ) Fraction] in Serum or Plasma ID Date Data Source [id number] 10/16/2019 12:00:00 AM EDT [facility] ([facility], ) Name Value Range Interpretation Description Data Sup porting Code Source(s) Document(s ) Protein,T 617.5 mg/dL Normal (applies to [facility] (S t otal,Urin non-numeric [facility] e results) [facility], ) Albumin, 77.5 % Normal (applies to [facility] (St U non-numeric [facility] results) [facility], PC) Alpha-1-G 1.2 % Normal (applies to [facility] (St lobulin, non-numeric [facility] U results) Medical, PC) Alpha-2-G 4.9 % Normal (applies to [facility] (St lobulin, non-numeric [facility] U results) [facility], PC) Beta 10.1 % Normal (applies to [facility] (St Globulin, non-numeric [facility] U results) Medical, PC) Gamma 6.3 % Normal (applies to [facility] (St Globulin, non-numeric [facility] U results) [facility], PC) M-Porfirio, Not Observed Normal (applies to [facility] ( St % non-numeric [facility] results) [facility], [facility]) PDF . Normal (applies to [facility] (St non-numeric [facility] results) [facility], [facility]) ID Date Data Source [id number] 10/16/2019 12:00:00 AM EDT [facility] ([facility], ) Name Value Range Interpretation Description Data Sup porting Code Source(s) Document(s ) Microalbumin 3.1 g/dL Normal (applies [facility] (St [Mass/time] in to non-numeric [facility] Urine collected results) Medical, for unspecified PC) duration Rcuxr-4-Sqazeyrg 0.3 g/dL Normal (applies [facility] (St to non-numeric [facility] results) [facility], PC) Beta globulin 0.8 g/dL Normal (applies [facility] (St [Mass/volume] in to non-numeric [facility] Urine by results) Medical, Electrophoresis PC) Rpsji-7-Zqbjjukx 0.8 g/dL Normal (applies [facility] (St to non-numeric [facility] results) [facility], PC) Gamma globulin 0.7 g/dL Normal (applies [facility] (S t [Mass/volume] by to non-numeric [facility] Electrophoresis results) Medical, in Urine PC) collected for unspecified duration M-Porfirio Not Normal (applies [facility] (St Observed to non-numeric [facility] results) Medical, PC) A/G Ratio 1.2 Normal (applies [facility] (St to non-numeric [facility] results) Medical, PC) Globulin, Total 2.6 g/dL Normal (applies [facility] ( St to non-numeric [facility] results) [facility], PC) PDF . Normal (applies [facility] (St to non-numeric [facility] results) Medical, ) ID Date Data Source [id number] 10/16/2019 12:00:00 AM EDT [facility] ([facility], ) Name Value Range Interpretation Description Data Sup porting Code Source(s) Document(s ) Specific gravity 1.021 Normal (applies [facility] (St of Pericardial to non-numeric [facility] fluid by results) Medical, Refractometry PC) pH of Lower 5.0 Normal (applies [facility] (St respiratory to non-numeric [facility] specimen results) Medical, ) Urine-Color Yellow Normal (applies [facility] (St to non-numeric [facility] results) Medical, ) Appearance of Clear Normal (applies [facility] (St Abdomen to non-numeric [facility] results) Medical, ) WBC Esterase Negative Normal (applies [facility] (St to non-numeric [facility] results) Medical, ) Protein Abnormal [facility] (St [Mass/volume] in (applies to [facility] Lower non-numeric Medical, respiratory results) PC) specimen Glucose Abnormal [facility] (St [Mass/volume] in (applies to [facility] Urine collected non-numeric Medical, for unspecified results) PC) duration Ketones Negative Normal (applies [facility] (St [Presence] in to non-numeric [facility] Blood by Tablet results) Medical, ) Bilirubin Negative Normal (applies [facility] (St [Presence] in to non-numeric [facility] Peritoneal fluid results) Medical, ) Occult Blood Negative Normal (applies [facility] (St to non-numeric [facility] results) Medical, ) Urobilinogen,Nani 0.2 mg/dL Normal (applies [facility] (St i-Qn to non-numeric [facility] results) Medical, ) Nitrite, Urine Negative Normal (applies [facility] (S t to non-numeric [facility] results) Medical, ) Microscopic See below: Normal (applies [facility] (St Examination to non-numeric [facility] results) Medical, ) ID Date Data Source [id number] 10/16/2019 12:00:00 AM EDT [facility] ([facility], ) Name Value Range Interpretation Description Data Sup porting Code Source(s) Document(s ) RBC 0-2 Normal (applies to [facility] (St non-numeric [facility] results) Medical, ) WBC 0-5 Normal (applies to [facility] (St non-numeric [facility] results) Medical, ) Epithelial 0-10 Normal (applies to [facility] (St Cells (non non-numeric [facility] renal) results) Medical, ) Mucus Threads Present Normal (applies to [facility] (St non-numeric [facility] results) Medical, ) Bacteria Few Normal (applies to [facility] (St [Presence] in non-numeric [facility] Prostatic results) Medical, ) fluid by Light microscopy ID Date Data Source [id number] 10/16/2019 12:00:00 AM EDT [facility] ([facility], ) Name Value Range Interpretation Description Data Sup porting Code Source(s) Document(s ) Glucose 146 Above high [facility] (St [Mass/volume] in mg/dL normal [facility] Urine collected for Medical, unspecified PC) duration Creatinine 2.31 Above high [facility] (St [Interpretation] in mg/dL normal [facility] Urine Medical, ) Urea nitrogen 25 mg/dL Above high [facility] (St [Mass/volume] in normal [facility] Serum or Plasma Medical, ) eGFR If NonAfricn 31 Below low normal [facility] N (St Am mL/min/1 [facility] .73 Medical, ) eGFR If Africn Am 36 Below low normal [facility] N (St mL/min/1 [facility] .73 [facility], ) BUN/Creatinine 11 Normal (applies [facility] (S t Ratio to non-numeric [facility] results) Medical, ) Sodium 144 Normal (applies [facility] (St [Moles/volume] in mmol/L to non-numeric [facility] Serum or Plasma results) Medical, ) Potassium 3.7 Normal (applies [facility] (St [Mass/volume] in mmol/L to non-numeric [facility] Blood results) Medical, ) Chloride 112 Above high [facility] (St [Moles/volume] in mmol/L normal [facility] Serum or Plasma Medical, ) Calcium 8.7 Normal (applies [facility] (St [Moles/volume] in mg/dL to non-numeric [facility] Urine collected for results) Medical, unspecified ) duration Carbon dioxide, 19 Below low normal [facility] (St total mmol/L [facility] [Moles/volume] in Medical, Serum or Plasma PC) Protein 5.7 g/dL Below low normal [facility] (St [Mass/volume] in [facility] Serum or Plasma Medical, ) Microalbumin 3.6 g/dL Below low normal [facility] (St [Mass/time] in [facility] Urine collected for Medical, unspecified PC) duration Globulin, Total 2.1 g/dL Normal (applies [facility] ( St to non-numeric [facility] results) Medical, ) A/G Ratio 1.7 Normal (applies [facility] (St to non-numeric [facility] results) Medical, ) Alkaline 140 IU/L Above high [facility] (St phosphatase normal [facility] [Enzymatic Medical, activity/volume] in ) Serum, Plasma or Blood Bilirubin.total <0.2 Normal (applies [facility] ( St [Mass/volume] in to non-numeric [facility] Serum or Plasma results) Medical, ) Alanine 20 IU/L Normal (applies [facility] (St aminotransferase to non-numeric [facility] [Enzymatic results) Medical, activity/volume] in ) Serum or Plasma Aspartate 17 IU/L Normal (applies [facility] (St aminotransferase to non-numeric [facility] [Enzymatic results) Medical, activity/volume] in ) Serum or Plasma ID Date Data Source [id number] 10/16/2019 12:00:00 AM EDT [facility] ([facility], ) Name Value Range Interpretation Description Data Sup porting Code Source(s) Document(s ) Leukocytes 8.0 Normal (applies [facility] (St [#/volume] in x10E3/uL to non-numeric [facility] Blood by results) Medical, ) Automated count Erythrocytes 3.24 Below low normal [facility] (St [#/volume] in x10E6/uL [facility] Blood by Medical, ) Automated count Hematocrit 27.7 % Below low normal [facility] (St [Volume [facility] Fraction] of Medical, ) Blood by Automated count Hemoglobin 9.2 g/dL Below low normal [facility] (St [Mass/volume] in [facility] Blood [facility], ) MCV 86 fL Normal (applies [facility] (St to non-numeric [facility] results) Medical, ) MCHC 33.2 Normal (applies [facility] (St g/dL to non-numeric [facility] results) [facility], ) MCH 28.4 pg Normal (applies [facility] (St to non-numeric [facility] results) [facility], ) Platelets 330 Normal (applies [facility] (St [#/area] in x10E3/uL to non-numeric [facility] Blood by results) [facility], ) Microscopy high power field RDW 13.5 % Normal (applies [facility] (St to non-numeric [facility] results) [facility], ) Neutrophils [#] 84 % Normal (applies [facility] ( St in Body fluid by to non-numeric [facility] Manual count results) [facility], ) Monocytes 4 % Normal (applies [facility] (St [#/volume] in to non-numeric [facility] Cord blood results) [facility], ) Lymphs 10 % Normal (applies [facility] (St to non-numeric [facility] results) [facility], ) Eos 2 % Normal (applies [facility] (St to non-numeric [facility] results) [facility], ) Basos 0 % Normal (applies [facility] (St to non-numeric [facility] results) [facility], ) Neutrophils 6.6 Normal (applies [facility] (St (Absolute) x10E3/uL to non-numeric [facility] results) [facility], ) Lymphs 0.8 Normal (applies [facility] (St (Absolute) x10E3/uL to non-numeric [facility] results) [facility], ) Eos (Absolute) 0.2 Normal (applies [facility] (S t x10E3/uL to non-numeric [facility] results) [facility], ) Monocytes(Absolu 0.4 Normal (applies [facility] (St te) x10E3/uL to non-numeric [facility] results) [facility], ) Baso (Absolute) 0.0 Normal (applies [facility] ( St x10E3/uL to non-numeric [facility] results) [facility], ) Immature Grans 0.0 Normal (applies [facility] (S t (Abs) x10E3/uL to non-numeric [facility] results) [facility], ) Immature 0 % Normal (applies [facility] (St Granulocytes to non-numeric [facility] results) [facility], ) ID Date Data Source [id number] 10/16/2019 12:00:00 AM EDT [facility] ([facility], ) Name Value Range Interpretation Description Data Sup porting Code Source(s) Document(s ) Antimyeloperoxidase <9.0 Normal (applies [facility] EN (St (MPO) Abs to non-numeric [facility] results) Medical, PC) Antiproteinase 3 <3.5 Normal (applies [facility] (St (MD-3) Abs to non-numeric [facility] results) Medical, PC) Cytoplasmic (C-ANCA) <1:20 Normal (applies MED GEN (St to non-numeric [facility] results) Medical, PC) Perinuclear (P-ANCA) <1:20 Normal (applies MED GEN (St to non-numeric [facility] results) Medical, PC) Atypical pANCA <1:20 Normal (applies [facility] (S t to non-numeric [facility] results) Medical, ) ID Date Data Source [id number] 10/16/2019 12:00:00 AM EDT [facility]) Name Value Range Interpretation Code Description Data Kimberly rce(s) Supporting Document(s ) ID Date Data Source [id number] 10/16/2019 12:00:00 AM EDT [facility]) Name Value Range Interpretation Code Description Data Supporting Source(s) Document(s ) PDF Not applicable Normal (applies to [facility] (St non-numeric [facility] results) Medical, ) PDF . Normal (applies to [facility] (St non-numeric [facility] results) Medical, ) ID Date Data Source [id number] 10/16/2019 12:00:00 AM EDT [facility]) Name Value Range Interpretation Code Description Data Kimberly rce(s) Supporting Document(s ) PDF . Normal (applies to [facility] (St non-numeric results) [facility], ) ID Date Data Source [id number] 10/16/2019 12:00:00 AM EDT [facility] ([facility]) Name Value Range Interpretation Code Description Data Supporting Source(s) Document(s ) PTH, Intact 83 pg/mL Above high normal [facility] ([facility]) ID Date Data Source [id number] 10/16/2019 12:00:00 AM EDT [facility] ([facility]) Name Value Range Interpretation Code Description Data Supporting Source(s) Document(s ) HBsAg Negative Normal (applies to [facility] (St Screen non-numeric [facility] results) Medical, ) ID Date Data Source [id number] 10/16/2019 12:00:00 AM EDT [facility] ([facility], ) Name Value Range Interpretation Code Description Data Supporting Source(s) Document(s ) Ferritin, 133 ng/mL Normal (applies to [facility] (St Serum non-numeric [facility] results) Medical, ) ID Date Data Source [id number] 10/16/2019 12:00:00 AM EDT [facility] ([facility], ) Name Value Range Interpretation Code Description Data Supporting Source(s) Document(s ) JAMAR Direct Negative Normal (applies to [facility] (St non-numeric [facility] results) Medical, ) ID Date Data Source [id number] 10/16/2019 12:00:00 AM EDT [facility] ([facility], ) Name Value Range Interpretation Description Data Sup porting Code Source(s) Document(s ) Urea nitrogen 39 mg/dL Above high normal [facility] ( St [Mass/volume] [facility] in Serum or Medical, ) Plasma Creatinine 2.54 Above high normal [facility] (St [Interpretation mg/dL [facility] ] in Urine [facility], ) eGFR If 28 Below low normal [facility] (St NonAfricn Am mL/min/1. [facility] 73 [facility], ) eGFR If Africn 32 Below low normal [facility] ( St Am mL/min/1. [facility] 73 [facility], ) BUN/Creatinine 15 Normal (applies [facility] (S t Ratio to non-numeric [facility] results) [facility], ) Sodium 145 Above high normal [facility] (St [Moles/volume] mmol/L [facility] in Serum or Medical, ) Plasma Potassium 4.1 Normal (applies [facility] (St [Mass/volume] mmol/L to non-numeric [facility] in Blood results) Medical, ) Carbon dioxide, 20 mmol/L Normal (applies [facility] ( St total to non-numeric [facility] [Moles/volume] results) Medical, ) in Serum or Plasma Chloride 111 Above high normal [facility] (St [Moles/volume] mmol/L [facility] in Serum or Medical, ) Plasma Calcium 8.2 mg/dL Below low normal [facility] (St [Moles/volume] [facility] in Urine [facility], ) collected for unspecified duration Deprecated 4.0 mg/dL Normal (applies [facility] (St Phosphorus to non-numeric [facility] [Mass/time] in results) [facility], ) 24 hour Urine ID Date Data Source [id number] 10/16/2019 12:00:00 AM EDT [facility], ) Name Value Range Interpretation Code Description Data Kimberly rce(s) Supporting Document(s ) Comment: Normal (applies to [facility] (St non-numeric results) [facility] Nd dicmi, ) ID Date Data Source [id number] 10/16/2019 12:00:00 AM EDT [facility], ) Name Value Range Interpretation Description Data Sup porting Code Source(s) Document(s ) PDF Not applicable Normal (applies to [facility] (St non-numeric Dony's results) [facility], ) HCV Ab <0.1 Normal (applies to [facility] (St non-numeric Dony's results) [facility], ) ID Date Data Source [id number] 10/16/2019 12:00:00 AM EDT [facility], ) Name Value Range Interpretation Code Description Data Kimberly rce(s) Supporting Document(s ) Anti-PLA2R <1.8 Normal (applies to [facility] (St non-numeric results) [facility] Nd dicmi, ) ID Date Data Source [id number] 10/16/2019 12:00:00 AM EDT [facility], ) Name Value Range Interpretation Code Description Data Supporting Source(s) Document(s ) Albumin, 2994.7 Normal (applies to [facility] (St Urine ug/mL non-numeric [facility] results) Medical, ) Alb/Creat 2053 mg/g Above high normal [facility] (St Ratio creat [facility], ) JERMAINE Normal (applies to [facility] (St Interpreta non-numeric [facility]ony's tion:U results) [facility], ) ID Date Data Source [id number] 10/16/2019 12:00:00 AM EDT [facility], ) Name Value Range Interpretation Code Description Data Kimberly rce(s) Supporting Document(s ) Anti-DNA 1 IU/mL Normal (applies to [facility] (St (DS) Ab Qn non-numeric [facility]ony's results) [facility], ) ID Date Data Source [id number] 10/16/2019 12:00:00 AM EDT [facility] ([facility], ) Name Value Range Interpretation Description Data Sup porting Code Source(s) Document(s ) Free Lambda 27.9 mg/L Above high normal [facility] (St Lt Chains,S [facility], ) [place]/Lambda 2.07 Above high normal [facility] (S t Ratio,S [facility], ) HIV Screen Non Normal (applies [facility] (St 4th Reactive to non-numeric [facility]ony[facility] Generation results) Medical, ) wRfx ID Date Data Source [id number] 10/16/2019 12:00:00 AM EDT [facility] ([facility], ) Name Value Range Interpretation Description Data Sup porting Code Source(s) Document(s ) Vitamin D, 8.0 ng/mL Below low normal [facility] (St 25-Hydroxy [facility], ) ID Date Data Source [id number] 10/16/2019 12:00:00 AM EDT [facility] ([facility], ) Name Value Range Interpretation Description Data Sup porting Code Source(s) Document(s ) RBC 0-2 Normal (applies [facility] (St to non-numeric [facility]'s results) Medical, ) Epithelial 0-10 Normal (applies [facility] (St Cells (non to non-numeric [facility]'s renal) results) Medical, ) Cast Type Hyaline Normal (applies [facility] (St casts to non-numeric [facility]'s results) Medical, ) Casts [#/area] Present Abnormal (applies [facility] (St in Urine to non-numeric [facility] sediment by results) Medical, ) Automated count Mucus Threads Present Normal (applies [facility] (St to non-numeric [facility] results) Medical, ) Bacteria Few Normal (applies [facility] (St [Presence] in to non-numeric [facility]ony[facility] Prostatic results) Medical, ) fluid by Light microscopy RA Latex <10.0 Normal (applies [facility] (St Turbid. to non-numeric [facility]ony's results) Medical, ) ID Date Data Source [id number] 10/16/2019 12:00:00 AM EDT [facility] ([facility], ) Name Value Range Interpretation Description Data Sup porting Code Source(s) Document(s ) Complement C3, 117 mg/dL Normal (applies to [facility] (St Serum non-numeric [facility]'s results) Medical, ) ID Date Data Source [id number] 10/16/2019 12:00:00 AM EDT [facility] ([facility], ) Name Value Range Interpretation Description Data Sup porting Code Source(s) Document(s ) Hep B Non Reactive Normal (applies to [facility] ( St Surface Ab, non-numeric [facility] Qual results) Medical, ) ID Date Data Source [id number] 10/16/2019 12:00:00 AM EDT [facility] ([facility], ) Name Value Range Interpretation Description Data Sup porting Code Source(s) Document(s ) Complement C4, 33 mg/dL Normal (applies to [facility] (St Serum non-numeric [facility]ony's results) Medical, ) ID Date Data Source [id number] 10/16/2019 12:00:00 AM EDT [facility] ([facility], ) Name Value Range Interpretation Description Data Sup porting Code Source(s) Document(s ) Urea nitrogen 29 mg/dL Above high normal [facility] ( St [Mass/volume] [facility]ony's in Serum or Medical, ) Plasma Creatinine 2.10 Above high normal [facility] (St [Interpretation mg/dL Dony's ] in Urine Medical, ) eGFR If 35 Below low normal [facility] (St NonAfricn Am mL/min/1. [facility]ony's 73 [facility], ) BUN/Creatinine 14 Normal (applies [facility] (S t Ratio to non-numeric [facility]ony's results) Medical, ) eGFR If Africn 40 Below low normal [facility] ( St Am mL/min/1. [facility] 73 Medical, ) Sodium 144 Normal (applies [facility] (St [Moles/volume] mmol/L to non-numeric [facility]ony[facility] in Serum or results) Medical, ) Plasma Potassium 3.9 Normal (applies [facility] (St [Mass/volume] mmol/L to non-numeric Dony's in Blood results) Medical, ) Chloride 109 Above high normal [facility] (St [Moles/volume] mmol/L [facility] in Serum or Medical, ) Plasma Calcium 8.7 mg/dL Normal (applies [facility] (St [Moles/volume] to non-numeric [facility]ony[facility] in Urine results) Medical, ) collected for unspecified duration Carbon dioxide, 23 mmol/L Normal (applies [facility] ( St total to non-numeric [facility]ony's [Moles/volume] results) Medical, ) in Serum or Plasma Hemoglobin A1c 6.7 % Above high normal [facility] (St in Blood [facility], ) ID Date Data Source [id number] 10/16/2019 12:00:00 AM EDT [facility] ([facility], ) Name Value Range Interpretation Code Description Data Kimberly rce(s) Supporting Document(s ) Metanephr 144.2 Above high normal [facility] (St ine, Pl pg/mL Dony's [facility], ) Normetane 256.1 Above high normal [facility] (St phrine, pg/mL Dony's Pl [facility], ) ID Date Data Source [id number] 10/16/2019 12:00:00 AM EDT [facility] ([facility], ) Name Value Range Interpretation Description Data Sup porting Code Source(s) Document(s ) Urine-Color Yellow Normal (applies [facility] (St to non-numeric [facility]ony's results) Medical, ) Appearance of Clear Normal (applies [facility] (St Abdomen to non-numeric [facility]ony's results) Medical, ) WBC Esterase Negative Normal (applies [facility] (St to non-numeric [facility]ony's results) Medical, ) Protein Abnormal (applies [facility] (St [Mass/volume] to non-numeric [facility]ony[facility] in Lower results) Medical, ) respiratory specimen Glucose Abnormal (applies [facility] (St [Mass/volume] to non-numeric [facility] in Urine results) Medical, ) collected for unspecified duration Ketones Negative Normal (applies [facility] (St [Presence] in to non-numeric [facility]ony[facility] Blood by results) Medical, ) Tablet Occult Blood Negative Normal (applies [facility] (St to non-numeric [facility]'s results) Medical, ) Bilirubin Negative Normal (applies [facility] (St [Presence] in to non-numeric [facility]'s Peritoneal results) Medical, ) fluid Urobilinogen,S 1.0 mg/dL Normal (applies [facility] (S t mere-Qn to non-numeric [facility]ony's results) Medical, ) Nitrite, Urine Negative Normal (applies [facility] (S t to non-numeric [facility]ony's results) Medical, ) Microscopic See below: Normal (applies [facility] (St Examination to non-numeric [facility]ony's results) [facility], ) Albumin, Urine 4217.2 Normal (applies [facility] (S t ug/mL to non-numeric Dony's results) [facility], ) Alb/Creat 2707 mg/g Above high normal [facility] (St Ratio creat [facility], ) ID Date Data Source [id number] 10/16/2019 12:00:00 AM EDT [facility] ([facility], ) Name Value Range Interpretation Description Data Sup porting Code Source(s) Document(s ) Free [place] 593.88 Above high normal [facility] (St Lt mg/L [facility]ony[facility] [place] [facility], ) Free Lambda 130.75 Above high normal [facility] (St Lt mg/L [facility]ony[facility] [place] [facility], ) [place]/Lambd 4.54 Normal (applies to [facility] (S t a Ratio,U non-numeric Dony's results) [facility], ) ID Date Data Source [id number] 10/16/2019 12:00:00 AM EDT [facility] ([facility], ) Name Value Range Interpretation Description Data Sup porting Code Source(s) Document(s ) Free [place] 57.8 mg/L Above high normal [facility] (St Lt [place],S [facility], ) Free Lambda 27.9 mg/L Above high normal [facility] (St Lt Chains,S Dony's [facility], ) [place]/Lambd 2.07 Above high normal [facility] (St a Ratio,S [facility], ) ID Date Data Source [id number] 10/16/2019 12:00:00 AM EDT [facility] ([facility], ) Name Value Range Interpretation Description Data Sup porting Code Source(s) Document(s ) Aldosterone <1.0 Normal (applies [facility] (St [Molar amount] to non-numeric [facility]ony's in Urine results) [facility], ) collected for unspecified duration Renin 0.178 Normal (applies [facility] (St [Enzymatic ng/mL/hr to non-numeric [facility]ony's activity/volume results) [facility], ) ] in Plasma Aldos/Renin <5.6 Normal (applies [facility] (St Ratio to non-numeric Dony's results) [facility], ) ID Date Data Source [id number] 10/16/2019 12:00:00 AM EDT [facility] ([facility], ) Name Value Range Interpretation Code Description Data Supporting Source(s) Document(s ) Creatinine 155.8 Normal (applies to [facility] (St , Urine mg/dL non-numeric [facility]ony's results) Medical, ) Protein/Cr 3963 mg/g Above high normal [facility] (St eat Ratio creat Dony's [facility], ) ID Date Data Source [id number] 10/16/2019 12:00:00 AM EDT [facility] ([facility], ) Name Value Range Interpretation Description Data Sup porting Code Source(s) Document(s ) Gamma globulin 0.7 g/dL Normal (applies [facility] (S t [Mass/volume] by to non-numeric Dony's Electrophoresis results) [facility], in Urine ) collected for unspecified duration M-Porfirio Not Normal (applies [facility] (St Observed to non-numeric Dony's results) [facility], ) Globulin, Total 2.6 g/dL Normal (applies [facility] ( St to non-numeric Dony's results) Medical, ) A/G Ratio 1.2 Normal (applies [facility] (St to non-numeric Dony's results) [facility], ) Please note: Normal (applies [facility] (St to non-numeric Dony's results) Medical, ) PDF . Normal (applies [facility] (St to non-numeric Dony's results) [facility], ) Immunofixation Normal (applies [facility] (S t Result, Serum to non-numeric Dony's results) [facility], ) Immunoglobulin G, 851 mg/dL Normal (applies [facility] (St Qn, Serum to non-numeric Dony's results) Medical, ) Immunoglobulin A, 124 mg/dL Normal (applies [facility] (St Qn, Serum to non-numeric Dony's results) Medical, ) Immunoglobulin M, 30 mg/dL Normal (applies [facility] (St Qn, Serum to non-numeric Dony's results) [facility], ) ID Date Data Source [id number] 10/16/2019 12:00:00 AM EDT [facility] ([facility], ) Name Value Range Interpretation Description Data Sup porting Code Source(s) Document(s ) Iron 228 ug/dL Below low normal [facility] (St Bind.Cap.(TIBC Dony's ) Medical, ) Iron 37 ug/dL Below low normal [facility] (St [Mass/volume] Dony's in Serum or Medical, ) Plasma UIBC 191 ug/dL Normal (applies to [facility] (St non-numeric Dony's results) [facility], ) Iron 16 % Normal (applies to [facility] (St saturation non-numeric [facility]ony's [Mass results) Medical, ) Fraction] in Serum or Plasma ID Date Data Source [id number] 10/16/2019 12:00:00 AM EDT [facility] ([facility], ) Name Value Range Interpretation Description Data Sup porting Code Source(s) Document(s ) Protein,To 617.5 mg/dL Normal (applies to [facility] ( St alaina,Urine non-numeric Dony's results) [facility], ) Albumin, U 77.5 % Normal (applies to [facility] (St non-numeric Dony's results) [facility], ) Alpha-1-Gl 1.2 % Normal (applies to [facility] (St obulin, U non-numeric Dony's results) [facility], ) Beta 10.1 % Normal (applies to [facility] (St Globulin, non-numeric Dony's U results) [facility], ) Alpha-2-Gl 4.9 % Normal (applies to [facility] (St obulin, U non-numeric Dony's results) [facility], ) Gamma 6.3 % Normal (applies to [facility] (St Globulin, non-numeric Dony's U results) [facility], ) M-Porfirio, % Not Observed Normal (applies to [facility] (St non-numeric Dony's results) [facility], ) PDF . Normal (applies to [facility] (St non-numeric Dony's results) [facility], ) Please Normal (applies to [facility] (St note: non-numeric Dony's results) [facility], ) ID Date Data Source [id number] 10/16/2019 12:00:00 AM EDT [facility] ([facility], ) Name Value Range Interpretation Description Data Sup porting Code Source(s) Document(s ) Microalbumin 3.1 g/dL Normal (applies [facility] (St [Mass/time] in to non-numeric Dony's Urine collected results) Medical, for unspecified PC) duration Trzhg-4-Eyrwqivx 0.3 g/dL Normal (applies [facility] (St to non-numeric Dony's results) Medical, PC) Prvgn-4-Vpvunqmr 0.8 g/dL Normal (applies [facility] (St to non-numeric Dony's results) Medical, PC) Beta globulin 0.8 g/dL Normal (applies [facility] (St [Mass/volume] in to non-numeric Dony's Urine by results) Medical, Electrophoresis PC) Gamma globulin 0.7 g/dL Normal (applies [facility] (S t [Mass/volume] by to non-numeric Dony's Electrophoresis results) Medical, in Urine PC) collected for unspecified duration M-Porfirio Not Normal (applies [facility] (St Observed to non-numeric Dony's results) Medical, PC) A/G Ratio 1.2 Normal (applies [facility] (St to non-numeric Dony's results) Medical, PC) Globulin, Total 2.6 g/dL Normal (applies [facility] ( St to non-numeric Dony's results) Medical, PC) Please note: Normal (applies [facility] (St to non-numeric Dony's results) Medical, PC) PDF . Normal (applies [facility] (St to non-numeric Dony's results) Medical, PC) ID Date Data Source [id number] 10/16/2019 12:00:00 AM EDT [facility] ([facility]) Name Value Range Interpretation Description Data Sup porting Code Source(s) Document(s ) Globulin, Total 2.1 g/dL Normal (applies [facility] ( St to non-numeric Dony's results) Medical, PC) A/G Ratio 1.7 Normal (applies [facility] (St to non-numeric Dony's results) Medical, PC) Bilirubin.total <0.2 Normal (applies [facility] ( St [Mass/volume] in to non-numeric Dony's Serum or Plasma results) Medical, PC) Alkaline 140 IU/L Above high [facility] (St phosphatase normal Dony's [Enzymatic Medical, activity/volume] PC) in Serum, Plasma or Blood Aspartate 17 IU/L Normal (applies [facility] (St aminotransferase to non-numeric Dony's [Enzymatic results) Medical, activity/volume] PC) in Serum or Plasma Alanine 20 IU/L Normal (applies [facility] (St aminotransferase to non-numeric Dony's [Enzymatic results) Medical, activity/volume] PC) in Serum or Plasma pH of Lower 5.0 Normal (applies [facility] (St respiratory to non-numeric Dony's specimen results) Medical, PC) Specific gravity 1.021 Normal (applies [facility] (St of Pericardial to non-numeric Dony's fluid by results) Medical, Refractometry PC) Urine-Color Yellow Normal (applies [facility] (St to non-numeric Dony's results) Medical, PC) WBC Esterase Negative Normal (applies [facility] (St to non-numeric Dony's results) Medical, PC) Appearance of Clear Normal (applies [facility] (St Abdomen to non-numeric Dony's results) Medical, PC) Protein Abnormal [facility] (St [Mass/volume] in (applies to Dony's Lower respiratory non-numeric Medical, specimen results) PC) Glucose Abnormal [facility] (St [Mass/volume] in (applies to Dony's Urine collected non-numeric Medical, for unspecified results) PC) duration Occult Blood Negative Normal (applies [facility] (St to non-numeric Dony's results) Medical, PC) Ketones [Presence] Negative Normal (applies [facility] N (St in Blood by Tablet to non-numeric Dony's results) Medical, PC) Bilirubin Negative Normal (applies [facility] (St [Presence] in to non-numeric Dony's Peritoneal fluid results) Medical, PC) Urobilinogen,Semi- 0.2 mg/dL Normal (applies [facility] N (St Qn to non-numeric Dony's results) Medical, PC) Nitrite, Urine Negative Normal (applies [facility] (S t to non-numeric Dony's results) Medical, PC) Microscopic See below: Normal (applies [facility] (St Examination to non-numeric Dony's results) Medical, PC) ID Date Data Source [id number] 10/16/2019 12:00:00 AM EDT [facility] ([facility]) Name Value Range Interpretation Description Data Sup porting Code Source(s) Document(s ) WBC 0-5 Normal (applies to [facility] (St non-numeric Dony's results) Medical, PC) RBC 0-2 Normal (applies to [facility] (St non-numeric Dony's results) Medical, PC) Epithelial 0-10 Normal (applies to [facility] (St Cells (non non-numeric Dony's renal) results) Medical, PC) Mucus Threads Present Normal (applies to [facility] (St non-numeric Dony's results) Medical, ) Bacteria Few Normal (applies to [facility] (St [Presence] in non-numeric Dony's Prostatic results) Medical, ) fluid by Light microscopy ID Date Data Source [id number] 10/16/2019 12:00:00 AM EDT [facility] ([facility] [place] [facility], ) Name Value Range Interpretation Description Data Sup porting Code Source(s) Document(s ) Glucose 146 Above high [facility] (St [Mass/volume] in mg/dL normal Dony's Urine collected for Medical, unspecified PC) duration Urea nitrogen 25 mg/dL Above high [facility] (St [Mass/volume] in normal Dony's Serum or Plasma Medical, ) Creatinine 2.31 Above high [facility] (St [Interpretation] in mg/dL normal Dony's Urine [facility], ) eGFR If NonAfricn 31 Below low normal MEDGE N (St Am mL/min/1 [facility] [address] [place] [address], ) eGFR If Africn Am 36 Below low normal MEDGE N (St mL/min/1 [facility] .73 [facility], ) BUN/Creatinine 11 Normal (applies [facility] (S t Ratio to non-numeric Dony's results) Medical, ) Sodium 144 Normal (applies [facility] (St [Moles/volume] in mmol/L to non-numeric Dony's Serum or Plasma results) Medical, ) Potassium 3.7 Normal (applies [facility] (St [Mass/volume] in mmol/L to non-numeric Dony's Blood results) Medical, ) Chloride 112 Above high [facility] (St [Moles/volume] in mmol/L normal Dony's Serum or Plasma [facility], ) Carbon dioxide, 19 Below low normal [facility] (St total mmol/L Dony's [Moles/volume] in Medical, Serum or Plasma PC) Calcium 8.7 Normal (applies [facility] (St [Moles/volume] in mg/dL to non-numeric Dony's Urine collected for results) Medical, unspecified PC) duration Microalbumin 3.6 g/dL Below low normal [facility] (St [Mass/time] in Dony's Urine collected for Medical, unspecified PC) duration Protein 5.7 g/dL Below low normal [facility] (St [Mass/volume] in Dony's Serum or Plasma [facility], ) Globulin, Total 2.1 g/dL Normal (applies [facility] ( St to non-numeric Dony's results) [facility], ) A/G Ratio 1.7 Normal (applies [facility] (St to non-numeric Dony's results) [facility], ) Bilirubin.total <0.2 Normal (applies [facility] ( St [Mass/volume] in to non-numeric Dony's Serum or Plasma results) [facility], ) Alkaline 140 IU/L Above high [facility] (St phosphatase normal Dony's [Enzymatic Medical, activity/volume] in ) Serum, Plasma or Blood Alanine 20 IU/L Normal (applies [facility] (St aminotransferase to non-numeric Dony's [Enzymatic results) Medical, activity/volume] in ) Serum or Plasma Aspartate 17 IU/L Normal (applies [facility] (St aminotransferase to non-numeric Dony's [Enzymatic results) Medical, activity/volume] in ) Serum or Plasma ID Date Data Source [id number] 10/16/2019 12:00:00 AM EDT [facility] ([facility] [place] [facility], ) Name Value Range Interpretation Description Data Sup porting Code Source(s) Document(s ) Leukocytes 8.0 Normal (applies [facility] (St [#/volume] in x10E3/uL to non-numeric Dony's Blood by results) [facility], ) Automated count Erythrocytes 3.24 Below low normal [facility] (St [#/volume] in x10E6/uL Dony's Blood by [facility], ) Automated count Hemoglobin 9.2 g/dL Below low normal [facility] (St [Mass/volume] in Dony's Blood [facility], ) MCV 86 fL Normal (applies [facility] (St to non-numeric Dony's results) [facility], ) Hematocrit 27.7 % Below low normal [facility] (St [Volume Dony's Fraction] of [facility], ) Blood by Automated count MCH 28.4 pg Normal (applies [facility] (St to non-numeric Dony's results) [facility], ) MCHC 33.2 Normal (applies [facility] (St g/dL to non-numeric Dony's results) [facility], ) RDW 13.5 % Normal (applies [facility] (St to non-numeric Dony's results) [facility], ) Platelets 330 Normal (applies [facility] (St [#/area] in x10E3/uL to non-numeric [facility] Blood by results) Medical, ) Microscopy high power field Lymphs 10 % Normal (applies [facility] (St to non-numeric [facility] results) Medical, ) Neutrophils [#] 84 % Normal (applies [facility] ( St in Body fluid by to non-numeric [facility] Manual count results) Medical, ) Monocytes 4 % Normal (applies [facility] (St [#/volume] in to non-numeric [facility] Cord blood results) Medical, ) Eos 2 % Normal (applies [facility] (St to non-numeric [facility] results) Medical, ) Basos 0 % Normal (applies [facility] (St to non-numeric [facility] results) Medical, ) Neutrophils 6.6 Normal (applies [facility] (St (Absolute) x10E3/uL to non-numeric [facility] results) [facility], ) Lymphs 0.8 Normal (applies [facility]GEN (St (Absolute) x10E3/uL to non-numeric [facility] results) Medical, ) Monocytes(Absolu 0.4 Normal (applies MEDGEN (St te) x10E3/uL to non-numeric [facility] results) [facility], ) Eos (Absolute) 0.2 Normal (applies MEDGEN (S t x10E3/uL to non-numeric [facility] results) [facility], ) Baso (Absolute) 0.0 Normal (applies [facility]GEN ( St x10E3/uL to non-numeric [facility] results) [facility], ) Immature 0 % Normal (applies [facility] (St Granulocytes to non-numeric [facility] results) Medical, ) Immature Grans 0.0 Normal (applies [facility] (S t (Abs) x10E3/uL to non-numeric [facility] results) [facility], ) ID Date Data Source [id number] 10/16/2019 12:00:00 AM EDT [facility] ([facility], ) Name Value Range Interpretation Description Data Sup porting Code Source(s) Document(s ) Antimyeloperoxidase <9.0 Normal (applies MEDG EN (St (MPO) Abs to non-numeric [facility] results) Medical, ) Antiproteinase 3 <3.5 Normal (applies [facility] (St (MD-3) Abs to non-numeric [facility] results) Medical, ) Cytoplasmic (C-ANCA) <1:20 Normal (applies MED GEN (St to non-numeric [facility] results) [facility], ) Atypical pANCA <1:20 Normal (applies [facility] (S t to non-numeric [facility] results) [facility], ) Perinuclear (P-ANCA) <1:20 Normal (applies MED GEN (St to non-numeric [facility] results) [facility], ) ID Date Data Source [id number] 10/16/2019 12:00:00 AM EDT [facility] ([facility], ) Name Value Range Interpretation Code Description Data Kimberly rce(s) Supporting Document(s ) PDF . Normal (applies to [facility] (St non-numeric results) [facility], ) ID Date Data Source [id number] 10/16/2019 12:00:00 AM EDT [facility] ([facility], ) Name Value Range Interpretation Code Description Data Supporting Source(s) Document(s ) PTH, Intact 83 pg/mL Above high normal MED[facility] ([place] [facility], ) ID Date Data Source [id number] 10/16/2019 12:00:00 AM EDT [facility] ([facility], ) Name Value Range Interpretation Code Description Data Supporting Source(s) Document(s ) HBsAg Negative Normal (applies to [facility] (St Screen non-numeric [facility] results) [facility], ) ID Date Data Source [id number] 10/16/2019 12:00:00 AM EDT [facility] ([facility], ) Name Value Range Interpretation Code Description Data Supporting Source(s) Document(s ) Ferritin, 133 ng/mL Normal (applies to [facility] (St Serum non-numeric [facility] results) [facility], ) ID Date Data Source [id number] 10/16/2019 12:00:00 AM EDT [facility] ([facility], ) Name Value Range Interpretation Code Description Data Supporting Source(s) Document(s ) JAMAR Direct Negative Normal (applies to [facility] (St non-numeric [facility] results) [facility], ) ID Date Data Source [id number] 10/16/2019 12:00:00 AM EDT [facility] ([facility], ) Name Value Range Interpretation Description Data Sup porting Code Source(s) Document(s ) Deprecated 4.0 mg/dL Normal (applies to [facility] (St Phosphorus non-numeric [facility] [Mass/time] in results) Medical, ) 24 hour Urine ID Date Data Source [id number] 10/16/2019 12:00:00 AM EDT [facility] ([facility], ) Name Value Range Interpretation Code Description Data Kimberly rce(s) Supporting Document(s ) ID Date Data Source [id number] 10/16/2019 12:00:00 AM EDT [facility] ([facility], ) Name Value Range Interpretation Code Description Data Kimberly rce(s) Supporting Document(s ) HCV Ab <0.1 Normal (applies to [facility] (St non-numeric results) [facility], ) ID Date Data Source [id number] 10/16/2019 12:00:00 AM EDT [facility], ) Name Value Range Interpretation Code Description Data Kimberly rce(s) Supporting Document(s ) Anti-PLA2R <1.8 Normal (applies to [facility] (St non-numeric results) [facility], ) ID Date Data Source [id number] 10/16/2019 12:00:00 AM EDT [facility] ([facility], ) Name Value Range Interpretation Code Description Data Kimberly rce(s) Supporting Document(s ) ID Date Data Source [id number] 10/16/2019 12:00:00 AM EDT [facility] ([facility], ) Name Value Range Interpretation Code Description Data Kimberly rce(s) Supporting Document(s ) Anti-DNA 1 IU/mL Normal (applies to [facility] (St (DS) Ab Qn non-numeric [facility] results) Medical, ) ID Date Data Source [id number] 10/16/2019 12:00:00 AM EDT [facility] ([facility], ) Name Value Range Interpretation Description Data Sup porting Code Source(s) Document(s ) HIV Screen Non Normal (applies [facility] (St 4th Reactive to non-numeric [facility] Generation results) Medical, ) wRfx ID Date Data Source [id number] 10/16/2019 12:00:00 AM EDT [facility] ([facility], ) Name Value Range Interpretation Description Data Sup porting Code Source(s) Document(s ) Vitamin D, 8.0 ng/mL Below low normal MED[facility] (St 25-Hydroxy [facility], ) ID Date Data Source [id number] 10/16/2019 12:00:00 AM EDT [facility] ([facility], ) Name Value Range Interpretation Code Description Data Kimberly rce(s) Supporting Document(s ) RA Latex <10.0 Normal (applies to [facility] (St Turbid. non-numeric results) [facility], ) ID Date Data Source [id number] 10/16/2019 12:00:00 AM EDT [facility] ([facility], ) Name Value Range Interpretation Description Data Sup porting Code Source(s) Document(s ) Complement C3, 117 mg/dL Normal (applies to [facility] (St Serum non-numeric [facility] results) [facility], ) ID Date Data Source [id number] 10/16/2019 12:00:00 AM EDT [facility] ([facility], ) Name Value Range Interpretation Description Data Sup porting Code Source(s) Document(s ) Hep B Non Reactive Normal (applies to [facility] ( St Surface Ab, non-numeric [facility] Qual results) [facility], ) ID Date Data Source [id number] 10/16/2019 12:00:00 AM EDT [facility] ([facility], ) Name Value Range Interpretation Description Data Sup porting Code Source(s) Document(s ) Complement C4, 33 mg/dL Normal (applies to [facility] (St Serum non-numeric [facility] results) [facility], ) ID Date Data Source [id number] 10/16/2019 12:00:00 AM EDT [facility] ([facility], ) Name Value Range Interpretation Description Data Sup porting Code Source(s) Document(s ) Hemoglobin A1c 6.7 % Above high normal [facility] (St in Blood [facility], ) ID Date Data Source [id number] 10/16/2019 12:00:00 AM EDT [facility] ([facility], ) Name Value Range Interpretation Code Description Data Kimberly rce(s) Supporting Document(s ) Normetane 256.1 Above high normal [facility] (St phrine, pg/mL [facility], ) Metanephr 144.2 Above high normal MEDGEN (St ine, Pl pg/mL [facility], ) ID Date Data Source [id number] 10/16/2019 12:00:00 AM EDT [facility] ([facility]) Name Value Range Interpretation Code Description Data Supporting Source(s) Document(s ) Albumin, 4217.2 Normal (applies to [facility] (St Urine ug/mL non-numeric [facility] results) Medical, ) Alb/Creat 2707 mg/g Above high normal [facility] (St Ratio creat [facility], ) ID Date Data Source [id number] 10/16/2019 12:00:00 AM EDT [facility] ([facility], ) Name Value Range Interpretation Description Data Sup porting Code Source(s) Document(s ) Free Lambda 130.75 Above high normal [facility] (St Lt mg/L [facility]) Free [place] 593.88 Above high normal [facility] (St Lt mg/L [facility], ) [place]/Lambd 4.54 Normal (applies to MEDGEN (S t a Ratio,U non-numeric [facility] results) [facility], ) ID Date Data Source [id number] 10/16/2019 12:00:00 AM EDT [facility] ([facility], ) Name Value Range Interpretation Description Data Sup porting Code Source(s) Document(s ) Free [place] 57.8 mg/L Above high normal [facility] (St Lt [facility]ains,S [facility]) [place]/Lambd 2.07 Above high normal [facility] (St a Ratio,S [facility], [facility]) Free Lambda 27.9 mg/L Above high normal [facility] (St Lt Chains,S [facility], ) ID Date Data Source [id number] 10/16/2019 12:00:00 AM EDT [facility] ([facility], ) Name Value Range Interpretation Description Data Sup porting Code Source(s) Document(s ) Aldosterone <1.0 Normal (applies [facility] (St [Molar amount] to non-numeric [facility] in Urine results) Medical, ) collected for unspecified duration Aldos/Renin <5.6 Normal (applies [facility] (St Ratio to non-numeric [facility] results) Medical, ) Renin 0.178 Normal (applies [facility] (St [Enzymatic ng/mL/hr to non-numeric [facility] activity/volume results) [facility], ) ] in Plasma ID Date Data Source [id number] 10/16/2019 12:00:00 AM EDT [facility] ([facility], ) Name Value Range Interpretation Code Description Data Supporting Source(s) Document(s ) Creatinine 155.8 Normal (applies to MEDGEN (St , Urine mg/dL non-numeric [facility] results) [facility], ) Protein/Cr 3963 mg/g Above high normal [facility] (St eat Ratio creat [facility], ) ID Date Data Source [id number] 10/16/2019 12:00:00 AM EDT MEDGEN ([facility], ) Name Value Range Interpretation Description Data Sup porting Code Source(s) Document(s ) Immunoglobulin G, 851 Normal (applies MEDGEN (St Qn, Serum mg/dL to non-numeric [facility] results) [facility], ) Immunoglobulin A, 124 Normal (applies [facility]GEN (St Qn, Serum mg/dL to non-numeric [facility] results) [facility], ) Immunoglobulin M, 30 mg/dL Normal (applies MEDGEN (St Qn, Serum to non-numeric [facility] results) [facility], ) ID Date Data Source [id number] 10/16/2019 12:00:00 AM EDT [facility] ([facility], ) Name Value Range Interpretation Description Data Sup porting Code Source(s) Document(s ) Iron 228 ug/dL Below low normal MED[facility] (St Bind.Cap.(TIBC [facility] ) [facility], ) UIBC 191 ug/dL Normal (applies to [facility]GEN (St non-numeric [facility] results) [facility], ) Iron 37 ug/dL Below low normal [facility] (St [Mass/volume] [facility] in Serum or Medical, ) Plasma Iron 16 % Normal (applies to [facility]GEN (St saturation non-numeric [facility] [Mass results) [facility], ) Fraction] in Serum or Plasma ID Date Data Source [id number] 10/16/2019 12:00:00 AM EDT [facility] ([facility], ) Name Value Range Interpretation Description Data Sup porting Code Source(s) Document(s ) Albumin, 77.5 % Normal (applies to [facility] (St U non-numeric [facility] results) Medical, PC) Protein,T 617.5 mg/dL Normal (applies to [facility]GEN (S t otal,Urin non-numeric [facility] e results) Medical, PC) Alpha-1-G 1.2 % Normal (applies to [facility] (St lobulin, non-numeric [facility] U results) Medical, PC) Alpha-2-G 4.9 % Normal (applies to [facility] (St lobulin, non-numeric [facility] U results) Medical, PC) Beta 10.1 % Normal (applies to [facility] (St Globulin, non-numeric [facility] U results) Medical, PC) M-Porfirio, Not Observed Normal (applies to [facility] ( St % non-numeric [facility] results) [facility], PC) Gamma 6.3 % Normal (applies to [facility] (St Globulin, non-numeric [facility] U results) Medical, PC) PDF . Normal (applies to [facility] (St non-numeric [facility] results) [facility], PC) ID Date Data Source [id number] 10/16/2019 12:00:00 AM EDT [facility] ([facility]) Name Value Range Interpretation Description Data Sup porting Code Source(s) Document(s ) Microalbumin 3.1 g/dL Normal (applies [facility] (St [Mass/time] in to non-numeric [facility] Urine collected results) Medical, for unspecified PC) duration [id number] 0.8 g/dL Normal (applies [facility] (St to non-numeric [facility] results) Medical, PC) Lomho-9-Paniktos 0.3 g/dL Normal (applies [facility] (St to non-numeric [facility] results) [facility], PC) Beta globulin 0.8 g/dL Normal (applies [facility] (St [Mass/volume] in to non-numeric [facility] Urine by results) Medical, Electrophoresis PC) M-Porfirio Not Normal (applies [facility] (St Observed to non-numeric [facility] results) Medical, PC) Gamma globulin 0.7 g/dL Normal (applies [facility] (S t [Mass/volume] by to non-numeric [facility] Electrophoresis results) Medical, in Urine PC) collected for unspecified duration Globulin, Total 2.6 g/dL Normal (applies [facility] ( St to non-numeric [facility] results) Medical, PC) PDF . Normal (applies [facility] (St to non-numeric [facility] results) [facility], PC) A/G Ratio 1.2 Normal (applies [facility] (St to non-numeric [facility] results) [facility], PC) ID Date Data Source [id number] 10/16/2019 12:00:00 AM EDT [facility] ([facility]) Name Value Range Interpretation Code Description Data Kimberly rce(s) Supporting Document(s ) ID Date Data Source [id number]/16/2019 12:00:00 AM EDT [facility] ([facility]) Name Value Range Interpretation Code Description Data Kimberyl rce(s) Supporting Document(s ) PDF . Normal (applies to [facility] (St non-numeric results) [facility]) ID Date Data Source 10/16/2019 12:00:00 AM EDT [facility] ([facility]) Name Value Range Interpretation Code Description Data Supporting Source(s) Document(s ) PTH, Intact 83 pg/mL Above high normal [facility] ([facility]) ID Date Data Source [id number]/16/2019 12:00:00 AM EDT [facility] ([facility]) Name Value Range Interpretation Code Description Data Supporting Source(s) Document(s ) HBsAg Negative Normal (applies to [facility] (St Screen non-numeric [facility] results) Medical, PC) ID Date Data Source [id number]/16/2019 12:00:00 AM EDT [facility] ([facility]) Name Value Range Interpretation Code Description Data Supporting Source(s) Document(s ) Ferritin, 133 ng/mL Normal (applies to [facility] (St Serum non-numeric [facility] results) Medical, PC) ID Date Data Source [id number]/16/2019 12:00:00 AM EDT [facility] ([facility]) Name Value Range Interpretation Code Description Data Supporting Source(s) Document(s ) JAMAR Direct Negative Normal (applies to [facility] (St non-numeric [facility] results) Medical, PC) ID Date Data Source [id number]/16/2019 12:00:00 AM EDT [facility] ([facility], ) Name Value Range Interpretation Description Data Sup porting Code Source(s) Document(s ) Deprecated 4.0 mg/dL Normal (applies to [facility] (St Phosphorus non-numeric [facility] [Mass/time] in results) Medical, ) 24 hour Urine ID Date Data Source [id number] 10/16/2019 12:00:00 AM EDT [facility] ([facility], ) Name Value Range Interpretation Code Description Data Kimberly rce(s) Supporting Document(s ) ID Date Data Source [id number]/16/2019 12:00:00 AM EDT [facility] ([facility], ) Name Value Range Interpretation Code Description Data Kimberly rce(s) Supporting Document(s ) HCV Ab <0.1 Normal (applies to [facility] (St non-numeric results) [facility], ) ID Date Data Source [id number] 10/16/2019 12:00:00 AM EDT [facility] ([facility], ) Name Value Range Interpretation Code Description Data Kimberly rce(s) Supporting Document(s ) Anti-PLA2R <1.8 Normal (applies to [facility] (St non-numeric results) [facility], ) ID Date Data Source [id number]/16/2019 12:00:00 AM EDT [facility] ([facility], ) Name Value Range Interpretation Code Description Data Kimberly rce(s) Supporting Document(s ) ID Date Data Source [id number]/16/2019 12:00:00 AM EDT [facility] ([facility], ) Name Value Range Interpretation Code Description Data Kimberly rce(s) Supporting Document(s ) Anti-DNA 1 IU/mL Normal (applies to [facility]GEN (St (DS) Ab Qn non-numeric [facility] results) Medical, ) ID Date Data Source [id number]/16/2019 12:00:00 AM EDT [facility] ([facility], ) Name Value Range Interpretation Description Data Sup porting Code Source(s) Document(s ) HIV Screen Non Normal (applies [facility] (St 4th Reactive to non-numeric [facility] Generation results) Medical, ) wRfx ID Date Data Source 10/16/2019 12:00:00 AM EDT [facility] ([facility], ) Name Value Range Interpretation Description Data Sup porting Code Source(s) Document(s ) Vitamin D, 8.0 ng/mL Below low normal [facility] (St 25-Hydroxy [facility], ) ID Date Data Source [id number] 10/16/2019 12:00:00 AM EDT [facility] ([facility], ) Name Value Range Interpretation Code Description Data Kimberly rce(s) Supporting Document(s ) RA Latex <10.0 Normal (applies to MEDGEN (St Turbid. non-numeric results) [facility], ) ID Date Data Source [id number] 10/16/2019 12:00:00 AM EDT [facility] ([facility], ) Name Value Range Interpretation Description Data Sup porting Code Source(s) Document(s ) Complement C3, 117 mg/dL Normal (applies to [facility] (St Serum non-numeric [facility] results) [facility], ) ID Date Data Source [id number] 10/16/2019 12:00:00 AM EDT [facility] ([facility], ) Name Value Range Interpretation Description Data Sup porting Code Source(s) Document(s ) Hep B Non Reactive Normal (applies to MEDGEN ( St Surface Ab, non-numeric [facility] Qual results) [facility], ) ID Date Data Source [id number] 10/16/2019 12:00:00 AM EDT [facility] ([facility], ) Name Value Range Interpretation Description Data Sup porting Code Source(s) Document(s ) Complement C4, 33 mg/dL Normal (applies to MEDGEN (St Serum non-numeric [facility] results) [facility], ) ID Date Data Source [id number] 10/16/2019 12:00:00 AM EDT [facility] ([facility], ) Name Value Range Interpretation Description Data Sup porting Code Source(s) Document(s ) Hemoglobin A1c 6.7 % Above high normal MEDGEN (St in Blood [facility], ) ID Date Data Source [id number] 10/16/2019 12:00:00 AM EDT [facility] ([facility], ) Name Value Range Interpretation Code Description Data Kimberly rce(s) Supporting Document(s ) Normetane 256.1 Above high normal [facility] (St phrine, pg/mL [facility]) Metanephr 144.2 Above high normal [facility] (St ine, Pl pg/mL [facility]) ID Date Data Source [id number] 10/16/2019 12:00:00 AM EDT [facility] ([facility]) Name Value Range Interpretation Code Description Data Supporting Source(s) Document(s ) Albumin, 4217.2 Normal (applies to MEDGEN (St Urine ug/mL non-numeric [facility] results) Medical, ) Alb/Creat 2707 mg/g Above high normal [facility] (St Ratio creat [facility], ) ID Date Data Source [id number] 10/16/2019 12:00:00 AM EDT [facility] ([facility]) Name Value Range Interpretation Description Data Sup porting Code Source(s) Document(s ) Free [place] 593.88 Above high normal MED[facility] (St Lt mg/L [facility]) [place]/Lambd 4.54 Normal (applies to MEDGEN (S t a Ratio,U non-numeric [facility] results) Medical, ) Free Lambda 130.75 Above high normal [facility] (St Lt mg/L [facility], ) ID Date Data Source [id number] 10/16/2019 12:00:00 AM EDT [facility] ([facility]) Name Value Range Interpretation Description Data Sup porting Code Source(s) Document(s ) Free [place] 57.8 mg/L Above high normal MED[facility] (St Lt Chains,S [facility]) Free Lambda 27.9 mg/L Above high normal [facility] (St Lt Chains,S [facility]) [place]/Lambd 2.07 Above high normal [facility] (St a Ratio,S [facility]) ID Date Data Source [id number] 10/16/2019 12:00:00 AM EDT [facility] ([facility]) Name Value Range Interpretation Description Data Sup porting Code Source(s) Document(s ) Aldosterone <1.0 Normal (applies [facility] (St [Molar amount] to non-numeric [facility] in Urine results) Medical, ) collected for unspecified duration Renin 0.178 Normal (applies MEDGEN (St [Enzymatic ng/mL/hr to non-numeric [facility] activity/volume results) [facility], ) ] in Plasma Aldos/Renin <5.6 Normal (applies MEDGEN (St Ratio to non-numeric [facility] results) [facility], ) ID Date Data Source [id number] 10/16/2019 12:00:00 AM EDT [facility] ([facility], ) Name Value Range Interpretation Code Description Data Supporting Source(s) Document(s ) Creatinine 155.8 Normal (applies to MEDGEN (St , Urine mg/dL non-numeric [facility] results) [facility], ) Protein/Cr 3963 mg/g Above high normal MEDGEN (St eat Ratio creat [facility], ) ID Date Data Source [id number] 10/16/2019 12:00:00 AM EDT [facility] ([facility], ) Name Value Range Interpretation Description Data Sup porting Code Source(s) Document(s ) Immunoglobulin G, 851 Normal (applies MEDGEN (St Qn, Serum mg/dL to non-numeric Dony's results) [facility], ) Immunoglobulin A, 124 Normal (applies MEDGEN (St Qn, Serum mg/dL to non-numeric Dony's results) [facility], ) Immunoglobulin M, 30 mg/dL Normal (applies MEDGEN (St Qn, Serum to non-numeric Dony's results) [facility], ) ID Date Data Source [id number] 10/16/2019 12:00:00 AM EDT MEDGEN (St [facility] hn's [facility], ) Name Value Range Interpretation Description Data Sup porting Code Source(s) Document(s ) Iron 228 ug/dL Below low normal MEDGEN (St Bind.Cap.(TIBC Dony's ) [facility], ) Iron 37 ug/dL Below low normal MEDGEN (St [Mass/volume] Dony's in Serum or Medical, ) Plasma UIBC 191 ug/dL Normal (applies to MEDGEN (St non-numeric Dony's results) [facility], ) Iron 16 % Normal (applies to MEDGEN (St saturation non-numeric Dony's [Mass results) [facility], ) Fraction] in Serum or Plasma ID Date Data Source [id number] 10/16/2019 12:00:00 AM EDT [facility] ([facility], ) Name Value Range Interpretation Description Data Sup porting Code Source(s) Document(s ) Protein,T 617.5 mg/dL Normal (applies to MEDGEN (S t otal,Urin non-numeric Dony's e results) Medical, ) Albumin, 77.5 % Normal (applies to [facility] (St U non-numeric Dony's results) Medical, ) Alpha-1-G 1.2 % Normal (applies to MEDGEN (St lobulin, non-numeric Dony's U results) Medical, ) Beta 10.1 % Normal (applies to [facility] (St Globulin, non-numeric Dony's U results) Medical, ) Alpha-2-G 4.9 % Normal (applies to MEDGEN (St lobulin, non-numeric Dony's U results) Medical, ) Gamma 6.3 % Normal (applies to MEDGEN (St Globulin, non-numeric Dony's U results) Medical, ) M-Porfirio, Not Observed Normal (applies to MEDGEN ( St % non-numeric Dony's results) Medical, ) PDF . Normal (applies to MEDGEN (St non-numeric Dony's results) Medical, ) ID Date Data Source [id number] 10/16/2019 12:00:00 AM EDT [facility], [facility] Name Value Range Interpretation Description Data Sup porting Code Source(s) Document(s ) Microalbumin 3.1 g/dL Normal (applies MEDGEN (St [Mass/time] in to non-numeric Dony's Urine collected results) Medical, for unspecified PC) duration Evgce-0-Pmnqqfyt 0.3 g/dL Normal (applies MEDGEN (St to non-numeric Dony's results) Medical, ) Fpqia-1-Jaztuxkp 0.8 g/dL Normal (applies MEDGEN (St to non-numeric Dony's results) Medical, PC) Beta globulin 0.8 g/dL Normal (applies MEDGEN (St [Mass/volume] in to non-numeric Dony's Urine by results) Medical, Electrophoresis PC) Gamma globulin 0.7 g/dL Normal (applies MEDGEN (S t [Mass/volume] by to non-numeric Dony's Electrophoresis results) Medical, in Urine PC) collected for unspecified duration M-Porfirio Not Normal (applies MEDGEN (St Observed to non-numeric Dony's results) Medical, PC) A/G Ratio 1.2 Normal (applies [facility] (St to non-numeric Dony's results) Medical, PC) Globulin, Total 2.6 g/dL Normal (applies MEDGEN ( St to non-numeric Dony's results) Medical, PC) PDF . Normal (applies [facility] (St to non-numeric Dony's results) Medical, PC) ID Date Data Source [id number] 10/16/2019 12:00:00 AM EDT [facility] ([facility]) Name Value Range Interpretation Description Data Sup porting Code Source(s) Document(s ) Specific gravity 1.021 Normal (applies MEDGEN (St of Pericardial to non-numeric Dony's fluid by results) Medical, Refractometry PC) pH of Lower 5.0 Normal (applies [facility] (St respiratory to non-numeric Dony's specimen results) Medical, PC) Appearance of Clear Normal (applies [facility] (St Abdomen to non-numeric Dony's results) Medical, PC) Urine-Color Yellow Normal (applies [facility] (St to non-numeric Dony's results) Medical, PC) WBC Esterase Negative Normal (applies [facility] (St to non-numeric Dony's results) Medical, PC) Glucose Abnormal MEDGEN (St [Mass/volume] in (applies to Dony's Urine collected non-numeric Medical, for unspecified results) PC) duration Protein Abnormal MEDGEN (St [Mass/volume] in (applies to Dony's Lower non-numeric Medical, respiratory results) PC) specimen Ketones Negative Normal (applies [facility]GEN (St [Presence] in to non-numeric Dony's Blood by Tablet results) Medical, PC) Bilirubin Negative Normal (applies [facility]GEN (St [Presence] in to non-numeric Dony's Peritoneal fluid results) Medical, PC) Occult Blood Negative Normal (applies [facility]GEN (St to non-numeric Dony's results) Medical, PC) Urobilinogen,Nani 0.2 mg/dL Normal (applies MEDGEN (St i-Qn to non-numeric Dony's results) Medical, PC) Nitrite, Urine Negative Normal (applies [facility]GEN (S t to non-numeric Dony's results) Medical, PC) Microscopic See below: Normal (applies MEDGEN (St Examination to non-numeric Dony's results) Medical, PC) ID Date Data Source [id number] 10/16/2019 12:00:00 AM EDT [facility] ([facility], ) Name Value Range Interpretation Description Data Sup porting Code Source(s) Document(s ) RBC 0-2 Normal (applies to MEDGEN (St non-numeric Dony's results) Medical, ) WBC 0-5 Normal (applies to [facility]GEN (St non-numeric Dony's results) Medical, ) Epithelial 0-10 Normal (applies to MEDGEN (St Cells (non non-numeric Dony's renal) results) Medical, ) Mucus Threads Present Normal (applies to MEDGEN (St non-numeric Doyn's results) Medical, ) Bacteria Few Normal (applies to MEDGEN (St [Presence] in non-numeric Dony's Prostatic results) [facility], ) fluid by Light microscopy ID Date Data Source [id number] 10/16/2019 12:00:00 AM EDT [facility] (St [facility], ) Name Value Range Interpretation Description Data Sup porting Code Source(s) Document(s ) Glucose 146 Above high MEDGEN (St [Mass/volume] in mg/dL normal Dony's Urine collected for Medical, unspecified PC) duration Creatinine 2.31 Above high MEDGEN (St [Interpretation] in mg/dL normal Dony's Urine [facility], ) Urea nitrogen 25 mg/dL Above high MEDGEN (St [Mass/volume] in normal Dony's Serum or Plasma [facility], ) eGFR If NonAfricn 31 Below low normal MEDGE N (St Am mL/min/1 Dony's .73 [facility], ) eGFR If Africn Am 36 Below low normal MEDGE N (St mL/min/1 Dony's .73 [facility], ) BUN/Creatinine 11 Normal (applies MEDGEN (S t Ratio to non-numeric Dony's results) [facility], ) Sodium 144 Normal (applies MEDGEN (St [Moles/volume] in mmol/L to non-numeric Dony's Serum or Plasma results) Medical, ) Potassium 3.7 Normal (applies MEDGEN (St [Mass/volume] in mmol/L to non-numeric Odny's Blood results) Medical, ) Chloride 112 Above high MEDGEN (St [Moles/volume] in mmol/L normal Dony's Serum or Plasma [facility], ) Carbon dioxide, 19 Below low normal MEDGEN (St total mmol/L Dony's [Moles/volume] in Medical, Serum or Plasma PC) Calcium 8.7 Normal (applies MEDGEN (St [Moles/volume] in mg/dL to non-numeric Dony's Urine collected for results) [facility], unspecified ) duration Microalbumin 3.6 g/dL Below low normal MEDGEN (St [Mass/time] in Dony's Urine collected for Medical, unspecified ) duration Protein 5.7 g/dL Below low normal MED[facility] (St [Mass/volume] in Dony's Serum or Plasma [facility], ) Globulin, Total 2.1 g/dL Normal (applies MEDGEN ( St to non-numeric Dony's results) [facility], ) A/G Ratio 1.7 Normal (applies MEDGEN (St to non-numeric Dony's results) [facility], ) Bilirubin.total <0.2 Normal (applies MEDGEN ( St [Mass/volume] in to non-numeric Dony's Serum or Plasma results) [facility], ) Alkaline 140 IU/L Above high MEDGEN (St phosphatase normal Dony's [Enzymatic Medical, activity/volume] in ) Serum, Plasma or Blood Aspartate 17 IU/L Normal (applies MEDGEN (St aminotransferase to non-numeric Dony's [Enzymatic results) Medical, activity/volume] in ) Serum or Plasma Alanine 20 IU/L Normal (applies MEDGEN (St aminotransferase to non-numeric Dony's [Enzymatic results) Medical, activity/volume] in ) Serum or Plasma ID Date Data Source [id number] 10/16/2019 12:00:00 AM EDT [facility] (St [facility] '[facility], ) Name Value Range Interpretation Description Data Sup porting Code Source(s) Document(s ) Leukocytes 8.0 Normal (applies MEDGEN (St [#/volume] in x10E3/uL to non-numeric Dony's Blood by results) [facility], ) Automated count Erythrocytes 3.24 Below low normal MEDGEN (St [#/volume] in x10E6/uL Dony's Blood by [facility], ) Automated count Hemoglobin 9.2 g/dL Below low normal [facility]GEN (St [Mass/volume] in Dony's Blood [facility], ) Hematocrit 27.7 % Below low normal MEDGEN (St [Volume Dony's Fraction] of [facility], ) Blood by Automated count MCV 86 fL Normal (applies MEDGEN (St to non-numeric Dony's results) [facility], ) MCH 28.4 pg Normal (applies MEDGEN (St to non-numeric Dony's results) [facility], ) MCHC 33.2 Normal (applies MEDGEN (St g/dL to non-numeric Dony's results) [facility], ) RDW 13.5 % Normal (applies MEDGEN (St to non-numeric Dony's results) [facility], ) Platelets 330 Normal (applies MEDGEN (St [#/area] in x10E3/uL to non-numeric Dony's Blood by results) [facility], ) Microscopy high power field Neutrophils [#] 84 % Normal (applies MEDGEN ( St in Body fluid by to non-numeric Dony's Manual count results) [facility], ) Lymphs 10 % Normal (applies MEDGEN (St to non-numeric Dony's results) [facility], ) Monocytes 4 % Normal (applies MEDGEN (St [#/volume] in to non-numeric Dony's Cord blood results) [facility], ) Eos 2 % Normal (applies MEDGEN (St to non-numeric Dony's results) [facility], ) Neutrophils 6.6 Normal (applies MEDGEN (St (Absolute) x10E3/uL to non-numeric Dony's results) [facility], ) Basos 0 % Normal (applies MEDGEN (St to non-numeric Dony's results) [facility], ) Lymphs 0.8 Normal (applies MEDGEN (St (Absolute) x10E3/uL to non-numeric Dony's results) [facility], ) Eos (Absolute) 0.2 Normal (applies MEDGEN (S t x10E3/uL to non-numeric Dony's results) [facility], ) Monocytes(Absolu 0.4 Normal (applies MEDGEN (St te) x10E3/uL to non-numeric Dony's results) [facility], ) Baso (Absolute) 0.0 Normal (applies MEDGEN ( St x10E3/uL to non-numeric Dony's results) [facility], ) Immature 0 % Normal (applies MEDGEN (St Granulocytes to non-numeric Dony's results) [facility], ) Immature Grans 0.0 Normal (applies MEDGEN (S t (Abs) x10E3/uL to non-numeric Dony's results) Medical, ) ID Date Data Source [id number] 10/16/2019 12:00:00 AM EDT [facility] ([facility], ) Name Value Range Interpretation Description Data Sup porting Code Source(s) Document(s ) Antimyeloperoxidase <9.0 Normal (applies MEDG EN (St (MPO) Abs to non-numeric Dony's results) Medical, ) Antiproteinase 3 <3.5 Normal (applies MEDGEN (St (MD-3) Abs to non-numeric Dony's results) Medical, ) Cytoplasmic (C-ANCA) <1:20 Normal (applies MED GEN (St to non-numeric Dony's results) Medical, ) Perinuclear (P-ANCA) <1:20 Normal (applies MED GEN (St to non-numeric Dony's results) Medical, ) Atypical pANCA <1:20 Normal (applies MEDGEN (S t to non-numeric Dony's results) Medical, ) ID Date Data Source [id number] 10/16/2019 12:00:00 AM EDT [facility] (St [facility], ) Name Value Range Interpretation Code Description Data Kimberly rce(s) Supporting Document(s ) ID Date Data Source [id number] 10/16/2019 12:00:00 AM EDT [facility] (St [facility], ) Name Value Range Interpretation Code Description Data Kimberly rce(s) Supporting Document(s ) PDF . Normal (applies to MEDGEN (St non-numeric results) [facility] Nd dical, ) ID Date Data Source [id number] 10/16/2019 12:00:00 AM EDT [facility] (St [facility], ) Name Value Range Interpretation Code Description Data Supporting Source(s) Document(s ) PTH, Intact 83 pg/mL Above high normal [facility] (Jessica's [facility], ) ID Date Data Source [id number] 10/16/2019 12:00:00 AM EDT [facility] (St [facility], ) Name Value Range Interpretation Code Description Data Supporting Source(s) Document(s ) HBsAg Negative Normal (applies to MEDGEN (St Screen non-numeric Dony's results) Medical, ) ID Date Data Source [id number] 10/16/2019 12:00:00 AM EDT [facility] ([facility]) Name Value Range Interpretation Code Description Data Supporting Source(s) Document(s ) Ferritin, 133 ng/mL Normal (applies to MEDGEN (St Serum non-numeric Dony's results) Medical, PC) ID Date Data Source [id number] 10/16/2019 12:00:00 AM EDT [facility] ([facility]) Name Value Range Interpretation Code Description Data Supporting Source(s) Document(s ) JAMAR Direct Negative Normal (applies to MEDGEN (St non-numeric Dony's results) Medical, ) ID Date Data Source [id number] 10/16/2019 12:00:00 AM EDT [facility] ([facility]) Name Value Range Interpretation Description Data Sup porting Code Source(s) Document(s ) Deprecated 4.0 mg/dL Normal (applies to MEDGEN (St Phosphorus non-numeric Dony's [Mass/time] in results) Medical, ) 24 hour Urine ID Date Data Source [id number] 10/16/2019 12:00:00 AM EDT [facility] ([facility]) Name Value Range Interpretation Code Description Data Kimberly rce(s) Supporting Document(s ) HCV Ab <0.1 Normal (applies to MEDGEN (St non-numeric results) [facility] Nd dical, PC) ID Date Data Source [id number] 10/16/2019 12:00:00 AM EDT [facility] ([facility]) Name Value Range Interpretation Code Description Data Kimberly rce(s) Supporting Document(s ) Anti-PLA2R <1.8 Normal (applies to MEDGEN (St non-numeric results) [facility] Nd dical, PC) ID Date Data Source [id number] 10/16/2019 12:00:00 AM EDT [facility] ([facility]) Name Value Range Interpretation Code Description Data Kimberly rce(s) Supporting Document(s ) JERMAINE Normal (applies to MEDGEN (St Interpreta non-numeric results) [facility] M edical, tion:U PC) ID Date Data Source [id number] 10/16/2019 12:00:00 AM EDT [facility] ([facility]) Name Value Range Interpretation Code Description Data Kimberly rce(s) Supporting Document(s ) Anti-DNA 1 IU/mL Normal (applies to MEDGEN (St (DS) Ab Qn non-numeric Dony's results) [facility], ) ID Date Data Source [id number] 10/16/2019 12:00:00 AM EDT [facility] (St Rocío sandoval's [facility], ) Name Value Range Interpretation Description Data Sup porting Code Source(s) Document(s ) HIV Screen Non Normal (applies MEDGEN (St 4th Reactive to non-numeric Dony's Generation results) [facility], ) wRfx ID Date Data Source [id number] 10/16/2019 12:00:00 AM EDT [facility] ([facility], ) Name Value Range Interpretation Description Data Sup porting Code Source(s) Document(s ) Leukocytes 8.0 Normal (applies MEDGEN (St [#/volume] in x10E3/uL to non-numeric Dony's Blood by results) [facility], ) Automated count Erythrocytes 3.24 Below low normal MEDGEN (St [#/volume] in x10E6/uL Dony's Blood by [facility], ) Automated count Hemoglobin 9.2 g/dL Below low normal [facility] (St [Mass/volume] in Dony's Blood [facility], ) MCV 86 fL Normal (applies MEDGEN (St to non-numeric Dony's results) [facility], ) Hematocrit 27.7 % Below low normal MEDGEN (St [Volume Dony's Fraction] of [facility], ) Blood by Automated count MCH 28.4 pg Normal (applies MEDGEN (St to non-numeric Dony's results) [facility], ) MCHC 33.2 Normal (applies MEDGEN (St g/dL to non-numeric Dony's results) [facility], ) RDW 13.5 % Normal (applies MEDGEN (St to non-numeric Dony's results) [facility], ) Platelets 330 Normal (applies MEDGEN (St [#/area] in x10E3/uL to non-numeric Dony's Blood by results) [facility], ) Microscopy high power field Neutrophils [#] 84 % Normal (applies MEDGEN ( St in Body fluid by to non-numeric Dony's Manual count results) [facility], ) Monocytes 4 % Normal (applies MEDGEN (St [#/volume] in to non-numeric Dony's Cord blood results) [facility], ) Lymphs 10 % Normal (applies MEDGEN (St to non-numeric Dony's results) Medical, ) Eos 2 % Normal (applies MEDGEN (St to non-numeric Dony's results) Medical, ) Basos 0 % Normal (applies MEDGEN (St to non-numeric Dony's results) Medical, ) Neutrophils 6.6 Normal (applies MEDGEN (St (Absolute) x10E3/uL to non-numeric Dony's results) Medical, ) Lymphs 0.8 Normal (applies MEDGEN (St (Absolute) x10E3/uL to non-numeric Dony's results) Medical, ) Eos (Absolute) 0.2 Normal (applies MEDGEN (S t x10E3/uL to non-numeric Dony's results) Medical, ) Monocytes(Absolu 0.4 Normal (applies MEDGEN (St te) x10E3/uL to non-numeric Dony's results) Medical, ) Baso (Absolute) 0.0 Normal (applies MEDGEN ( St x10E3/uL to non-numeric Dony's results) Medical, ) Immature 0 % Normal (applies MEDGEN (St Granulocytes to non-numeric Dony's results) [facility], ) Immature Grans 0.0 Normal (applies MEDGEN (S t (Abs) x10E3/uL to non-numeric Dony's results) [facility], ) ID Date Data Source [id number] 10/16/2019 12:00:00 AM EDT [facility] ([facility], ) Name Value Range Interpretation Description Data Sup porting Code Source(s) Document(s ) Antimyeloperoxidase <9.0 Normal (applies MEDG EN (St (MPO) Abs to non-numeric Dony's results) Medical, ) Antiproteinase 3 <3.5 Normal (applies MEDGEN (St (MD-3) Abs to non-numeric Dony's results) Medical, ) Cytoplasmic (C-ANCA) <1:20 Normal (applies MED GEN (St to non-numeric Dony's results) Medical, ) Perinuclear (P-ANCA) <1:20 Normal (applies MED GEN (St to non-numeric Dony's results) Medical, ) Atypical pANCA <1:20 Normal (applies MEDGEN (S t to non-numeric Dony's results) [facility], ) ID Date Data Source [id number] 10/16/2019 12:00:00 AM EDT [facility] ([facility]) Name Value Range Interpretation Code Description Data Kimberly rce(s) Supporting Document(s ) PDF . Normal (applies to [facility]GEN (St non-numeric results) [facility] d[facility], PC) ID Date Data Source [id number] 10/16/2019 12:00:00 AM EDT [facility] ([facility]) Name Value Range Interpretation Code Description Data Supporting Source(s) Document(s ) PTH, Intact 83 pg/mL Above high normal [facility] ([facility], [facility]) ID Date Data Source [id number] 10/16/2019 12:00:00 AM EDT [facility] ([facility]) Name Value Range Interpretation Code Description Data Supporting Source(s) Document(s ) Ferritin, 133 ng/mL Normal (applies to MEDGEN (St Serum non-numeric Dony's results) Medical, PC) ID Date Data Source [id number] 10/16/2019 12:00:00 AM EDT [facility] ([facility]) Name Value Range Interpretation Code Description Data Supporting Source(s) Document(s ) JAMAR Direct Negative Normal (applies to [facility]GEN (St non-numeric Dony's results) Medical, ) ID Date Data Source [id number] 10/16/2019 12:00:00 AM EDT [facility] ([facility]) Name Value Range Interpretation Description Data Sup porting Code Source(s) Document(s ) Deprecated 4.0 mg/dL Normal (applies to MEDGEN (St Phosphorus non-numeric Dony's [Mass/time] in results) Medical, ) 24 hour Urine ID Date Data Source [id number] 10/16/2019 12:00:00 AM EDT [facility] ([facility]) Name Value Range Interpretation Code Description Data Kimberly rce(s) Supporting Document(s ) HCV Ab <0.1 Normal (applies to [facility]GEN (St non-numeric results) [facility], PC) ID Date Data Source [id number] 10/16/2019 12:00:00 AM EDT [facility] ([facility]) Name Value Range Interpretation Code Description Data Kimberly rce(s) Supporting Document(s ) Anti-PLA2R <1.8 Normal (applies to MEDGEN (St non-numeric results) [facility] Me dical, ) ID Date Data Source [id number] 10/16/2019 12:00:00 AM EDT [facility], ) Name Value Range Interpretation Code Description Data Kimberly rce(s) Supporting Document(s ) Anti-DNA 1 IU/mL Normal (applies to MEDGEN (St (DS) Ab Qn non-numeric Dony's results) [facility], ) ID Date Data Source [id number] 10/16/2019 12:00:00 AM EDT [facility], ) Name Value Range Interpretation Description Data Sup porting Code Source(s) Document(s ) HIV Screen Non Normal (applies MEDGEN (St 4th Reactive to non-numeric Dony's Generation results) [facility], ) wRfx ID Date Data Source [id number] 10/16/2019 12:00:00 AM EDT [facility], ) Name Value Range Interpretation Code Description Data Supporting Source(s) Document(s ) Creatinine 155.8 Normal (applies to MEDGEN (St , Urine mg/dL non-numeric Dony's results) [facility], ) Protein/Cr 3963 mg/g Above high normal MEDGEN (St eat Ratio creat [facility], ) ID Date Data Source [id number] 10/16/2019 12:00:00 AM EDT [facility] ([facility], ) Name Value Range Interpretation Description Data Sup porting Code Source(s) Document(s ) Protein,To 617.5 mg/dL Normal (applies to MEDGEN ( St alaina,Urine non-numeric Dony's results) [facility], ) Albumin, U 77.5 % Normal (applies to MEDGEN (St non-numeric Dony's results) [facility], ) Alpha-1-Gl 1.2 % Normal (applies to MEDGEN (St obulin, U non-numeric Dony's results) [facility], ) Alpha-2-Gl 4.9 % Normal (applies to MEDGEN (St obulin, U non-numeric Dony's results) [facility], ) Beta 10.1 % Normal (applies to MEDGEN (St Globulin, non-numeric Dony's U results) [facility], ) M-Porfirio, % Not Observed Normal (applies to MEDGEN (St non-numeric Dony's results) Medical, ) Gamma 6.3 % Normal (applies to MEDGEN (St Globulin, non-numeric Dony's U results) [facility], ) Please Normal (applies to MEDGEN (St note: non-numeric Dony's results) Medical, ) PDF . Normal (applies to MEDGEN (St non-numeric Dony's results) [facility], ) ID Date Data Source [id number] 10/16/2019 12:00:00 AM EDT MEDGEN (St [facility] hn's [facility], ) Name Value Range Interpretation Description Data Sup porting Code Source(s) Document(s ) WBC 0-5 Normal (applies to MEDGEN (St non-numeric Dony's results) [facility], ) Epithelial 0-10 Normal (applies to MEDGEN (St Cells (non non-numeric Dony's renal) results) [facility], ) RBC 0-2 Normal (applies to MEDGEN (St non-numeric Dony's results) [facility], ) Mucus Threads Present Normal (applies to MEDGEN (St non-numeric Dony's results) [facility], ) Bacteria Few Normal (applies to MEDGEN (St [Presence] in non-numeric Dony's Prostatic results) [facility], ) fluid by Light microscopy ID Date Data Source [id number] 10/16/2019 12:00:00 AM EDT MEDGEN (St [facility], ) Name Value Range Interpretation Description Data Sup porting Code Source(s) Document(s ) Leukocytes 8.0 Normal (applies MEDGEN (St [#/volume] in x10E3/uL to non-numeric Dony's Blood by results) Medical, ) Automated count Erythrocytes 3.24 Below low normal MEDGEN (St [#/volume] in x10E6/uL Dony's Blood by Medical, ) Automated count Hemoglobin 9.2 g/dL Below low normal MEDGEN (St [Mass/volume] in Dony's Blood [facility], ) Hematocrit 27.7 % Below low normal MEDGEN (St [Volume Dony's Fraction] of Medical, ) Blood by Automated count MCV 86 fL Normal (applies MEDGEN (St to non-numeric Dony's results) [facility], ) MCH 28.4 pg Normal (applies MEDGEN (St to non-numeric Dony's results) Medical, ) MCHC 33.2 Normal (applies MEDGEN (St g/dL to non-numeric Dony's results) [facility], ) RDW 13.5 % Normal (applies MEDGEN (St to non-numeric Dony's results) [facility], ) Platelets 330 Normal (applies MEDGEN (St [#/area] in x10E3/uL to non-numeric [facility]'s Blood by results) Medical, ) Microscopy high power field Neutrophils [#] 84 % Normal (applies MEDGEN ( St in Body fluid by to non-numeric Dony's Manual count results) Medical, ) Lymphs 10 % Normal (applies MEDGEN (St to non-numeric Dony's results) [facility], ) Monocytes 4 % Normal (applies MEDGEN (St [#/volume] in to non-numeric Dony's Cord blood results) [facility], ) Eos 2 % Normal (applies MEDGEN (St to non-numeric Dony's results) [facility], ) Basos 0 % Normal (applies MEDGEN (St to non-numeric Dony's results) [facility], ) Neutrophils 6.6 Normal (applies MEDGEN (St (Absolute) x10E3/uL to non-numeric Dony's results) Medical, ) Lymphs 0.8 Normal (applies MEDGEN (St (Absolute) x10E3/uL to non-numeric Dony's results) [facility], ) Monocytes(Absolu 0.4 Normal (applies MEDGEN (St te) x10E3/uL to non-numeric Dony's results) Medical, ) Eos (Absolute) 0.2 Normal (applies MEDGEN (S t x10E3/uL to non-numeric Dony's results) Medical, ) Baso (Absolute) 0.0 Normal (applies MEDGEN ( St x10E3/uL to non-numeric Dony's results) Medical, ) Immature 0 % Normal (applies MEDGEN (St Granulocytes to non-numeric Dony's results) [facility], ) Immature Grans 0.0 Normal (applies MEDGEN (S t (Abs) x10E3/uL to non-numeric Dony's results) [facility], ) ID Date Data Source [id number] 10/16/2019 12:00:00 AM EDT [facility] (St [facility], ) Name Value Range Interpretation Description Data Sup porting Code Source(s) Document(s ) Antimyeloperoxidase <9.0 Normal (applies MEDG EN (St (MPO) Abs to non-numeric Dony's results) Medical, ) Antiproteinase 3 <3.5 Normal (applies MEDGEN (St (MD-3) Abs to non-numeric Dony's results) Medical, ) Cytoplasmic (C-ANCA) <1:20 Normal (applies MED GEN (St to non-numeric Dony's results) Medical, ) Perinuclear (P-ANCA) <1:20 Normal (applies MED GEN (St to non-numeric Dony's results) Medical, ) Atypical pANCA <1:20 Normal (applies MEDGEN (S t to non-numeric Dony's results) [facility], ) ID Date Data Source [id number] 10/16/2019 12:00:00 AM EDT MED[facility] (St [place] '[facility], ) Name Value Range Interpretation Description Data Sup porting Code Source(s) Document(s ) Complement C4, 33 mg/dL Normal (applies to MEDGEN (St Serum non-numeric Dony's results) [facility], ) ID Date Data Source [id number] 10/16/2019 12:00:00 AM EDT MEDGEN (St [place] '[facility], ) Name Value Range Interpretation Description Data Sup porting Code Source(s) Document(s ) Hemoglobin A1c 6.7 % Above high normal MEDGEN (St in Blood [facility], ) ID Date Data Source [id number] 10/16/2019 12:00:00 AM EDT MED[facility] (St [place], ) Name Value Range Interpretation Code Description Data Kimberly rce(s) Supporting Document(s ) Normetane 256.1 Above high normal MEDGEN (St phrine, pg/mL Dony's Pl [facility], ) Metanephr 144.2 Above high normal MEDGEN (St ine, Pl pg/mL [facility], ) ID Date Data Source [id number] 10/16/2019 12:00:00 AM EDT MEDGEN (St [facility], ) Name Value Range Interpretation Description Data Sup porting Code Source(s) Document(s ) Free [place] 593.88 Above high normal MEDGEN (St Lt mg/L [facility], ) Free Lambda 130.75 Above high normal MEDGEN (St Lt mg/L Dony's Chains,Ur [facility], ) [place]/Lambd 4.54 Normal (applies to MEDGEN (S t a Ratio,U non-numeric Dony's results) [facility], ) ID Date Data Source [id number] 10/16/2019 12:00:00 AM EDT MEDGEN (St [facility], ) Name Value Range Interpretation Description Data Sup porting Code Source(s) Document(s ) Free [place] 57.8 mg/L Above high normal MEDGEN (St Lt Chains,S [facility], ) Free Lambda 27.9 mg/L Above high normal MEDGEN (St Lt Chains,S [facility], ) [place]/Lambd 2.07 Above high normal MEDGEN (St a Ratio,S [facility], ) ID Date Data Source [id number] 10/16/2019 12:00:00 AM EDT MEDGEN (St [facility], ) Name Value Range Interpretation Code Description Data Supporting Source(s) Document(s ) Creatinine 155.8 Normal (applies to MEDGEN (St , Urine mg/dL non-numeric Dony's results) [facility], ) Protein/Cr 3963 mg/g Above high normal MEDGEN (St eat Ratio creat [facility], ) ID Date Data Source [id number] 10/16/2019 12:00:00 AM EDT MEDGEN (St [facility], ) Name Value Range Interpretation Description Data Sup porting Code Source(s) Document(s ) Immunofixation Normal (applies MEDGEN (S t Result, Serum to non-numeric Dony's results) [facility], ) Immunoglobulin G, 851 Normal (applies MEDGEN (St Qn, Serum mg/dL to non-numeric Dony's results) [facility]) Immunoglobulin A, 124 Normal (applies MEDGEN (St Qn, Serum mg/dL to non-numeric Dony's results) [facility]) Immunoglobulin M, 30 mg/dL Normal (applies MEDGEN (St Qn, Serum to non-numeric Dony's results) [facility], ) ID Date Data Source [id number] 10/16/2019 12:00:00 AM EDT MEDGEN (St [facility], ) Name Value Range Interpretation Description Data Sup porting Code Source(s) Document(s ) Iron 228 ug/dL Below low normal MEDGEN (St Bind.Cap.(TIBC Dony's ) Medical, PC) UIBC 191 ug/dL Normal (applies to [facility]GEN (St non-numeric Dony's results) Medical, PC) Iron 37 ug/dL Below low normal MEDGEN (St [Mass/volume] Dony's in Serum or Medical, PC) Plasma Iron 16 % Normal (applies to MEDGEN (St saturation non-numeric Dony's [Mass results) Medical, PC) Fraction] in Serum or Plasma ID Date Data Source [id number] 10/16/2019 12:00:00 AM EDT [facility] (St [facility], [facility]) Name Value Range Interpretation Description Data Sup porting Code Source(s) Document(s ) Microalbumin 3.1 g/dL Normal (applies MEDGEN (St [Mass/time] in to non-numeric Dony's Urine collected results) Medical, for unspecified PC) duration Epckd-5-Hrbhcxow 0.8 g/dL Normal (applies MEDGEN (St to non-numeric Dony's results) Medical, PC) Mtluu-7-Ljqghwlj 0.3 g/dL Normal (applies MEDGEN (St to non-numeric Dony's results) Medical, PC) Beta globulin 0.8 g/dL Normal (applies MEDGEN (St [Mass/volume] in to non-numeric Dony's Urine by results) Medical, Electrophoresis PC) Gamma globulin 0.7 g/dL Normal (applies MEDGEN (S t [Mass/volume] by to non-numeric Dony's Electrophoresis results) Medical, in Urine PC) collected for unspecified duration M-Porfirio Not Normal (applies MEDGEN (St Observed to non-numeric Dony's results) Medical, PC) Globulin, Total 2.6 g/dL Normal (applies MEDGEN ( St to non-numeric Dony's results) Medical, PC) A/G Ratio 1.2 Normal (applies MEDGEN (St to non-numeric Dony's results) Medical, PC) Please note: Normal (applies MEDGEN (St to non-numeric Dony's results) Medical, PC) PDF . Normal (applies MEDGEN (St to non-numeric Dony's results) Medical, PC) ID Date Data Source [id number] 10/16/2019 12:00:00 AM EDT [facility] (St [facility], ) Name Value Range Interpretation Description Data Sup porting Code Source(s) Document(s ) Specific gravity 1.021 Normal (applies MEDGEN (St of Pericardial to non-numeric Dony's fluid by results) Medical, Refractometry PC) Urine-Color Yellow Normal (applies MEDGEN (St to non-numeric Dony's results) Medical, PC) pH of Lower 5.0 Normal (applies MEDGEN (St respiratory to non-numeric Dony's specimen results) Medical, PC) Appearance of Clear Normal (applies MEDGEN (St Abdomen to non-numeric Dony's results) Medical, PC) WBC Esterase Negative Normal (applies MEDGEN (St to non-numeric Dony's results) Medical, PC) Protein Abnormal MEDGEN (St [Mass/volume] in (applies to Dony's Lower non-numeric Medical, respiratory results) PC) specimen Glucose Abnormal MEDGEN (St [Mass/volume] in (applies to Dony's Urine collected non-numeric Medical, for unspecified results) PC) duration Ketones Negative Normal (applies MEDGEN (St [Presence] in to non-numeric Dony's Blood by Tablet results) Medical, PC) Occult Blood Negative Normal (applies MEDGEN (St to non-numeric Dony's results) Medical, PC) Bilirubin Negative Normal (applies MEDGEN (St [Presence] in to non-numeric Dony's Peritoneal fluid results) Medical, PC) Nitrite, Urine Negative Normal (applies MEDGEN (S t to non-numeric Dony's results) Medical, PC) Urobilinogen,Nani 0.2 mg/dL Normal (applies MEDGEN (St i-Qn to non-numeric Dony's results) Medical, PC) Microscopic See below: Normal (applies MEDGEN (St Examination to non-numeric Dony's results) Medical, PC) ID Date Data Source [id number] 10/16/2019 12:00:00 AM EDT [facility] (St [facility], ) Name Value Range Interpretation Description Data Sup porting Code Source(s) Document(s ) WBC 0-5 Normal (applies to MEDGEN (St non-numeric Dony's results) Medical, PC) RBC 0-2 Normal (applies to MEDGEN (St non-numeric Dony's results) Medical, PC) Epithelial 0-10 Normal (applies to MEDGEN (St Cells (non non-numeric Dony's renal) results) Medical, ) Mucus Threads Present Normal (applies to MEDGEN (St non-numeric Dony's results) Medical, ) Bacteria Few Normal (applies to MEDGEN (St [Presence] in non-numeric Dony's Prostatic results) Medical, ) fluid by Light microscopy ID Date Data Source [id number] 10/16/2019 12:00:00 AM EDT MEDGEN (St [place] [facility], ) Name Value Range Interpretation Description Data Sup porting Code Source(s) Document(s ) Glucose 146 Above high MEDGEN (St [Mass/volume] in mg/dL normal Dony's Urine collected for Medical, unspecified PC) duration Urea nitrogen 25 mg/dL Above high MEDGEN (St [Mass/volume] in normal Dony's Serum or Plasma [facility], ) Creatinine 2.31 Above high MEDGEN (St [Interpretation] in mg/dL normal Dony's Urine [facility], ) eGFR If NonAfricn 31 Below low normal MEDGE N (St Am mL/min/1 Dony's .73 [facility], ) eGFR If Africn Am 36 Below low normal MEDGE N (St mL/min/1 Dony's .73 [facility], ) BUN/Creatinine 11 Normal (applies MEDGEN (S t Ratio to non-numeric Dony's results) Medical, ) Sodium 144 Normal (applies MEDGEN (St [Moles/volume] in mmol/L to non-numeric Dony's Serum or Plasma results) Medical, ) Potassium 3.7 Normal (applies MEDGEN (St [Mass/volume] in mmol/L to non-numeric Dony's Blood results) Medical, ) Chloride 112 Above high MEDGEN (St [Moles/volume] in mmol/L normal Dony's Serum or Plasma [facility], ) Carbon dioxide, 19 Below low normal MEDGEN (St total mmol/L Dony's [Moles/volume] in Medical, Serum or Plasma PC) Calcium 8.7 Normal (applies MEDGEN (St [Moles/volume] in mg/dL to non-numeric Dony's Urine collected for results) Medical, unspecified PC) duration Protein 5.7 g/dL Below low normal MEDGEN (St [Mass/volume] in Dony's Serum or Plasma [facility], ) Microalbumin 3.6 g/dL Below low normal MEDGEN (St [Mass/time] in Dony's Urine collected for Medical, unspecified PC) duration Globulin, Total 2.1 g/dL Normal (applies MEDGEN ( St to non-numeric Dony's results) Medical, PC) A/G Ratio 1.7 Normal (applies MEDGEN (St to non-numeric Doyn's results) Medical, PC) Alkaline 140 IU/L Above high MEDGEN (St phosphatase normal Dony's [Enzymatic Medical, activity/volume] in PC) Serum, Plasma or Blood Bilirubin.total <0.2 Normal (applies MEDGEN ( St [Mass/volume] in to non-numeric Dony's Serum or Plasma results) Medical, PC) Aspartate 17 IU/L Normal (applies MEDGEN (St aminotransferase to non-numeric Dony's [Enzymatic results) Medical, activity/volume] in PC) Serum or Plasma Alanine 20 IU/L Normal (applies MEDGEN (St aminotransferase to non-numeric Dony's [Enzymatic results) Medical, activity/volume] in PC) Serum or Plasma ID Date Data Source [id number] 10/16/2019 12:00:00 AM EDT [facility]GEN (St [facility], PC) Name Value Range Interpretation Description Data Sup porting Code Source(s) Document(s ) pH of Lower 5.0 Normal (applies MEDGEN (St respiratory to non-numeric Dony's specimen results) Medical, PC) Specific gravity 1.021 Normal (applies MEDGEN (St of Pericardial to non-numeric Dony's fluid by results) Medical, Refractometry PC) Urine-Color Yellow Normal (applies MEDGEN (St to non-numeric Dony's results) Medical, PC) Appearance of Clear Normal (applies MEDGEN (St Abdomen to non-numeric Dony's results) Medical, PC) WBC Esterase Negative Normal (applies MEDGEN (St to non-numeric Dony's results) Medical, PC) Glucose Abnormal MEDGEN (St [Mass/volume] in (applies to Dony's Urine collected non-numeric Medical, for unspecified results) PC) duration Protein Abnormal MEDGEN (St [Mass/volume] in (applies to Dony's Lower non-numeric Medical, respiratory results) PC) specimen Ketones Negative Normal (applies MEDGEN (St [Presence] in to non-numeric Dony's Blood by Tablet results) Medical, PC) Occult Blood Negative Normal (applies MEDGEN (St to non-numeric Dony's results) [facility], ) Bilirubin Negative Normal (applies MEDGEN (St [Presence] in to non-numeric Dony's Peritoneal fluid results) [facility], ) Urobilinogen,Nani 0.2 mg/dL Normal (applies MEDGEN (St i-Qn to non-numeric Dony's results) [facility], ) Nitrite, Urine Negative Normal (applies MEDGEN (S t to non-numeric Dony's results) [facility], ) Microscopic See below: Normal (applies MEDGEN (St Examination to non-numeric Dony's results) [facility], ) ID Date Data Source [id number] 10/16/2019 12:00:00 AM EDT MED[facility] (St [facility] [facility], ) Name Value Range Interpretation Description Data Sup porting Code Source(s) Document(s ) WBC 0-5 Normal (applies to MEDGEN (St non-numeric Dony's results) [facility], ) RBC 0-2 Normal (applies to MEDGEN (St non-numeric Dony's results) [facility], ) Mucus Threads Present Normal (applies to MEDGEN (St non-numeric Dony's results) [facility], ) Epithelial 0-10 Normal (applies to MEDGEN (St Cells (non non-numeric Dony's renal) results) [facility], ) Bacteria Few Normal (applies to MEDGEN (St [Presence] in non-numeric Dony's Prostatic results) [facility], ) fluid by Light microscopy ID Date Data Source [id number] 10/16/2019 12:00:00 AM EDT MEDGEN (St [facility], ) Name Value Range Interpretation Description Data Sup porting Code Source(s) Document(s ) Glucose 146 Above high MEDGEN (St [Mass/volume] in mg/dL normal Dony's Urine collected for Medical, unspecified PC) duration Urea nitrogen 25 mg/dL Above high MEDGEN (St [Mass/volume] in normal Dony's Serum or Plasma [facility], ) Creatinine 2.31 Above high MEDGEN (St [Interpretation] in mg/dL normal Dony's Urine [facility], ) eGFR If NonAfricn 31 Below low normal MEDGE N (St Am mL/min/1 Dony's .73 [facility], ) eGFR If Africn Am 36 Below low normal MEDGE N (St mL/min/1 Dony's .73 Medical, ) BUN/Creatinine 11 Normal (applies MEDGEN (S t Ratio to non-numeric Dony's results) Medical, ) Sodium 144 Normal (applies MEDGEN (St [Moles/volume] in mmol/L to non-numeric Dony's Serum or Plasma results) Medical, ) Potassium 3.7 Normal (applies MEDGEN (St [Mass/volume] in mmol/L to non-numeric Dony's Blood results) Medical, ) Chloride 112 Above high MEDGEN (St [Moles/volume] in mmol/L normal Dony's Serum or Plasma Medical, ) Carbon dioxide, 19 Below low normal MEDGEN (St total mmol/L Dony's [Moles/volume] in Medical, Serum or Plasma PC) Calcium 8.7 Normal (applies MEDGEN (St [Moles/volume] in mg/dL to non-numeric Dony's Urine collected for results) Medical, unspecified PC) duration Protein 5.7 g/dL Below low normal MEDGEN (St [Mass/volume] in Dony's Serum or Plasma [facility], ) Microalbumin 3.6 g/dL Below low normal MEDGEN (St [Mass/time] in Dony's Urine collected for Medical, unspecified PC) duration Globulin, Total 2.1 g/dL Normal (applies MEDGEN ( St to non-numeric Dony's results) Medical, ) A/G Ratio 1.7 Normal (applies MEDGEN (St to non-numeric Dony's results) Medical, ) Alkaline 140 IU/L Above high MEDGEN (St phosphatase normal Dony's [Enzymatic Medical, activity/volume] in ) Serum, Plasma or Blood Bilirubin.total <0.2 Normal (applies MEDGEN ( St [Mass/volume] in to non-numeric Dony's Serum or Plasma results) Medical, ) Aspartate 17 IU/L Normal (applies MEDGEN (St aminotransferase to non-numeric Dony's [Enzymatic results) Medical, activity/volume] in PC) Serum or Plasma Alanine 20 IU/L Normal (applies MEDGEN (St aminotransferase to non-numeric Dony's [Enzymatic results) Medical, activity/volume] in ) Serum or Plasma ID Date Data Source [id number] 10/16/2019 12:00:00 AM EDT [facility] (St [facility], ) Name Value Range Interpretation Description Data Sup porting Code Source(s) Document(s ) Leukocytes 8.0 Normal (applies MEDGEN (St [#/volume] in x10E3/uL to non-numeric Dony's Blood by results) [facility], ) Automated count Erythrocytes 3.24 Below low normal MEDGEN (St [#/volume] in x10E6/uL Dony's Blood by [facility], ) Automated count Hemoglobin 9.2 g/dL Below low normal MEDGEN (St [Mass/volume] in Dony's Blood [facility], ) Hematocrit 27.7 % Below low normal MEDGEN (St [Volume Dony's Fraction] of [facility], ) Blood by Automated count MCH 28.4 pg Normal (applies MEDGEN (St to non-numeric Dony's results) [facility], ) MCV 86 fL Normal (applies MEDGEN (St to non-numeric Dony's results) [facility], ) MCHC 33.2 Normal (applies MEDGEN (St g/dL to non-numeric Dony's results) [facility], ) RDW 13.5 % Normal (applies MEDGEN (St to non-numeric Dony's results) [facility], ) Platelets 330 Normal (applies MEDGEN (St [#/area] in x10E3/uL to non-numeric Dony's Blood by results) [facility], ) Microscopy high power field Neutrophils [#] 84 % Normal (applies MEDGEN ( St in Body fluid by to non-numeric Dony's Manual count results) [facility], ) Lymphs 10 % Normal (applies MEDGEN (St to non-numeric Dony's results) [facility], ) Monocytes 4 % Normal (applies MEDGEN (St [#/volume] in to non-numeric Dony's Cord blood results) [facility], ) Eos 2 % Normal (applies MEDGEN (St to non-numeric Dony's results) [facility], ) Basos 0 % Normal (applies MEDGEN (St to non-numeric Dony's results) [facility], ) Neutrophils 6.6 Normal (applies MEDGEN (St (Absolute) x10E3/uL to non-numeric Dony's results) [facility], ) Lymphs 0.8 Normal (applies MEDGEN (St (Absolute) x10E3/uL to non-numeric Dony[facility] results) [facility], ) Monocytes(Absolu 0.4 Normal (applies MEDGEN (St te) x10E3/uL to non-numeric [facility] results) Medical, ) Eos (Absolute) 0.2 Normal (applies [facility]GEN (S t x10E3/uL to non-numeric [facility] results) Medical, ) Baso (Absolute) 0.0 Normal (applies MED[facility] ( St x10E3/uL to non-numeric [facility] results) Medical, ) Immature 0 % Normal (applies [facility] (St Granulocytes to non-numeric Dony's results) Medical, ) Immature Grans 0.0 Normal (applies [facility] (S t (Abs) x10E3/uL to non-numeric [facility] results) Medical, ) ID Date Data Source [id number] 10/16/2019 12:00:00 AM EDT [facility] (St [facility], ) Name Value Range Interpretation Description Data Sup porting Code Source(s) Document(s ) Antimyeloperoxidase <9.0 Normal (applies MEDG EN (St (MPO) Abs to non-numeric [facility] results) Medical, ) Cytoplasmic (C-ANCA) <1:20 Normal (applies MED GEN (St to non-numeric [facility]ony's results) Medical, ) Antiproteinase 3 <3.5 Normal (applies [facility] (St (MD-3) Abs to non-numeric [facility] results) Medical, ) Perinuclear (P-ANCA) <1:20 Normal (applies MED GEN (St to non-numeric [facility] results) Medical, ) Atypical pANCA <1:20 Normal (applies [facility]GEN (S t to non-numeric [facility] results) Medical, ) ID Date Data Source [id number] 10/07/2019 12:00:00 AM EDT [facility] ([facility], ) Name Value Range Interpretation Code Description Data Supporting Source(s) Document(s ) PDF . Normal (applies to [facility]GEN (St non-numeric [facility] results) Medical, ) PDF Not applicable Normal (applies to [facility]GEN (St non-numeric Dony's results) [facility], ) ID Date Data Source [id number] 10/07/2019 12:00:00 AM EDT [facility] ([facility], ) Name Value Range Interpretation Description Data Sup porting Code Source(s) Document(s ) Glucose 129 mg/dL Above high normal [facility] (St [Mass/volume] [facility]ony[facility] in Urine Medical, ) collected for unspecified duration Urea nitrogen 39 mg/dL Above high normal [facility] ( St [Mass/volume] [facility]ony[facility] in Serum or Medical, ) Plasma Creatinine 2.54 Above high normal [facility]GEN (St [Interpretation mg/dL Dony's ] in Urine [facility], ) eGFR If 28 Below low normal MEDGEN (St NonAfricn Am mL/min/1. Dony's 73 [facility], ) eGFR If Africn 32 Below low normal MEDGEN ( St Am mL/min/1. [facility]ony[facility] 73 [facility], ) BUN/Creatinine 15 Normal (applies MEDGEN (S t Ratio to non-numeric Dony's results) [facility], ) Sodium 145 Above high normal [facility] (St [Moles/volume] mmol/L [facility] in Serum or Medical, ) Plasma Potassium 4.1 Normal (applies [facility] (St [Mass/volume] mmol/L to non-numeric Dony's in Blood results) Medical, ) Carbon dioxide, 20 mmol/L Normal (applies [facility]GEN ( St total to non-numeric Dony's [Moles/volume] results) [facility], ) in Serum or Plasma Chloride 111 Above high normal [facility] (St [Moles/volume] mmol/L [facility] in Serum or Medical, ) Plasma Calcium 8.2 mg/dL Below low normal [facility] (St [Moles/volume] [facility] in Urine [facility], ) collected for unspecified duration ID Date Data Source [id number] 10/07/2019 12:00:00 AM EDT [facility] ([facility], ) Name Value Range Interpretation Code Description Data [facility] rce(s) Supporting Document(s ) ID Date Data Source [id number] 10/07/2019 12:00:00 AM EDT [facility] ([facility], ) Name Value Range Interpretation Code Description Data Supporting Source(s) Document(s ) PDF . Normal (applies to [facility] (St non-numeric [facility]'s results) Medical, ) PDF Not applicable Normal (applies to [facility] (St non-numeric [facility] results) Medical, ) ID Date Data Source [id number] 10/07/2019 12:00:00 AM EDT [facility] ([facility], ) Name Value Range Interpretation Code Description Data Supporting Source(s) Document(s ) Creatinine 145.9 Normal (applies to [facility] (St , Urine mg/dL non-numeric [facility] results) Medical, PC) Albumin, 2994.7 Normal (applies to [facility] (St Urine ug/mL non-numeric [facility] results) Medical, PC) Alb/Creat 2053 mg/g Above high normal [facility] (St Ratio creat [facility], ) ID Date Data Source [id number] 10/07/2019 12:00:00 AM EDT [facility] ([facility], ) Name Value Range Interpretation Description Data Sup porting Code Source(s) Document(s ) WBC 0-5 Normal (applies [facility] (St to non-numeric [facility]'s results) Medical, PC) RBC 0-2 Normal (applies [facility] (St to non-numeric [facility]'s results) Medical, PC) Epithelial 0-10 Normal (applies [facility] (St Cells (non to non-numeric [facility]'s renal) results) Medical, PC) Casts [#/area] Present Abnormal (applies [facility] (St in Urine to non-numeric [facility]ony's sediment by results) Medical, PC) Automated count Mucus Threads Present Normal (applies [facility] (St to non-numeric [facility] results) Medical, PC) Cast Type Hyaline Normal (applies [facility] (St casts to non-numeric [facility] results) Medical, PC) Bacteria Few Normal (applies [facility] (St [Presence] in to non-numeric [facility] Prostatic results) Medical, PC) fluid by Light microscopy ID Date Data Source [id number] 10/07/2019 12:00:00 AM EDT [facility] ([facility], ) Name Value Range Interpretation Description Data Sup porting Code Source(s) Document(s ) Specific gravity 1.022 Normal (applies [facility] (St of Pericardial to non-numeric [facility]ony's fluid by results) Medical, Refractometry PC) pH of Lower 5.0 Normal (applies [facility] (St respiratory to non-numeric [facility] specimen results) Medical, PC) Urine-Color Yellow Normal (applies [facility] (St to non-numeric [facility] results) Medical, PC) Appearance of Clear Normal (applies [facility] (St Abdomen to non-numeric [facility] results) Medical, PC) WBC Esterase Negative Normal (applies [facility] (St to non-numeric [facility]'s results) Medical, ) Protein Abnormal MEDGEN (St [Mass/volume] in (applies to [facility] Lower non-numeric Medical, respiratory results) ) specimen Glucose Abnormal [facility]GEN (St [Mass/volume] in (applies to [facility] Urine collected non-numeric Medical, for unspecified results) ) duration Ketones Negative Normal (applies [facility] (St [Presence] in to non-numeric [facility] Blood by Tablet results) [facility], ) Occult Blood Negative Normal (applies [facility] (St to non-numeric Dony's results) [facility], ) Urobilinogen,Nani 1.0 mg/dL Normal (applies [facility] (St i-Qn to non-numeric [facility]ony's results) [facility], ) Bilirubin Negative Normal (applies [facility] (St [Presence] in to non-numeric [facility]'s Peritoneal fluid results) [facility], ) Nitrite, Urine Negative Normal (applies MEDGEN (S t to non-numeric Dony's results) [facility], ) Microscopic See below: Normal (applies [facility]GEN (St Examination to non-numeric Dony's results) [facility], ) ID Date Data Source [id number] 10/07/2019 12:00:00 AM EDT [facility] ([facility], ) Name Value Range Interpretation Code Description Data Supporting Source(s) Document(s ) PDF . Normal (applies to [facility]GEN (St non-numeric Dony's results) [facility], ) PDF Not applicable Normal (applies to [facility] (St non-numeric Dony's results) [facility], ) ID Date Data Source [id number] 10/07/2019 12:00:00 AM EDT [facility] ([facility], ) Name Value Range Interpretation Description Data Sup porting Code Source(s) Document(s ) Glucose 129 mg/dL Above high normal [facility] (St [Mass/volume] [facility] in Urine [facility], ) collected for unspecified duration Urea nitrogen 39 mg/dL Above high normal [facility] ( St [Mass/volume] [facility] in Serum or Medical, ) Plasma Creatinine 2.54 Above high normal [facility] (St [Interpretation mg/dL Dony's ] in Urine [facility], ) eGFR If 28 Below low normal [facility] (St NonAfricn Am mL/min/1. [facility] 73 Medical, ) eGFR If Africn 32 Below low normal [facility] ( St Am mL/min/1. [facility] 73 [facility], ) BUN/Creatinine 15 Normal (applies [facility]GEN (S t Ratio to non-numeric [facility] results) Medical, ) Sodium 145 Above high normal [facility] (St [Moles/volume] mmol/L [facility] in Serum or Medical, ) Plasma Chloride 111 Above high normal [facility] (St [Moles/volume] mmol/L [facility] in Serum or Medical, ) Plasma Potassium 4.1 Normal (applies [facility] (St [Mass/volume] mmol/L to non-numeric [facility] in Blood results) Medical, ) Carbon dioxide, 20 mmol/L Normal (applies [facility] ( St total to non-numeric [facility]ony's [Moles/volume] results) [facility], ) in Serum or Plasma Calcium 8.2 mg/dL Below low normal [facility] (St [Moles/volume] [facility] in Urine Medical, ) collected for unspecified duration ID Date Data Source [id number] 10/07/2019 12:00:00 AM EDT [facility] (St [facility], ) Name Value Range Interpretation Code Description Data Kimberly rce(s) Supporting Document(s ) ID Date Data Source [id number] 10/07/2019 12:00:00 AM EDT [facility] ([facility] [employer], ) Name Value Range Interpretation Code Description Data Supporting Source(s) Document(s ) PDF . Normal (applies to [facility]GEN (St non-numeric [facility]ony's results) Medical, ) PDF Not applicable Normal (applies to [facility]GEN (St non-numeric Odny's results) [facility], ) ID Date Data Source [id number] 10/07/2019 12:00:00 AM EDT [facility] (St [facility] [employer], ) Name Value Range Interpretation Code Description Data Supporting Source(s) Document(s ) Creatinine 145.9 Normal (applies to MEDGEN (St , Urine mg/dL non-numeric Dony's results) [facility], ) Albumin, 2994.7 Normal (applies to [facility] (St Urine ug/mL non-numeric [facility] results) Medical, ) Alb/Creat 2053 mg/g Above high normal [facility] (St Ratio creat [facility], [facility]) ID Date Data Source [id number] 10/07/2019 12:00:00 AM EDT [facility] ([facility], ) Name Value Range Interpretation Description Data Sup porting Code Source(s) Document(s ) WBC 0-5 Normal (applies [facility] (St to non-numeric [facility] results) Medical, PC) Epithelial 0-10 Normal (applies [facility] (St Cells (non to non-numeric [facility] renal) results) Medical, PC) RBC 0-2 Normal (applies [facility] (St to non-numeric [facility] results) Medical, PC) Casts [#/area] Present Abnormal (applies [facility] (St in Urine to non-numeric [facility] sediment by results) Medical, PC) Automated count Cast Type Hyaline Normal (applies [facility] (St casts to non-numeric [facility] results) Medical, PC) Mucus Threads Present Normal (applies [facility] (St to non-numeric [facility] results) Medical, PC) Bacteria Few Normal (applies [facility] (St [Presence] in to non-numeric [facility] Prostatic results) Medical, PC) fluid by Light microscopy ID Date Data Source [id number] 10/07/2019 12:00:00 AM EDT [facility] ([facility], ) Name Value Range Interpretation Description Data Sup porting Code Source(s) Document(s ) Specific gravity 1.022 Normal (applies [facility] (St of Pericardial to non-numeric Dony's fluid by results) Medical, Refractometry PC) pH of Lower 5.0 Normal (applies [facility] (St respiratory to non-numeric [facility] specimen results) Medical, PC) Urine-Color Yellow Normal (applies [facility] (St to non-numeric [facility] results) Medical, PC) Appearance of Clear Normal (applies [facility] (St Abdomen to non-numeric [facility] results) Medical, PC) Protein Abnormal MEDGEN (St [Mass/volume] in (applies to [facility] Lower non-numeric Medical, respiratory results) PC) specimen WBC Esterase Negative Normal (applies [facility] (St to non-numeric [facility] results) Medical, PC) Glucose Abnormal MEDGEN (St [Mass/volume] in (applies to [facility]'s Urine collected non-numeric Medical, for unspecified results) PC) duration Ketones Negative Normal (applies [facility] (St [Presence] in to non-numeric [facility]'s Blood by Tablet results) [facility], ) Occult Blood Negative Normal (applies [facility] (St to non-numeric Dony's results) [facility], ) Bilirubin Negative Normal (applies [facility] (St [Presence] in to non-numeric Dony's Peritoneal fluid results) [facility], ) Urobilinogen,Nani 1.0 mg/dL Normal (applies [facility]GEN (St i-Qn to non-numeric Dony's results) [facility], ) Nitrite, Urine Negative Normal (applies MEDGEN (S t to non-numeric Dony's results) [facility], ) Microscopic See below: Normal (applies [facility]GEN (St Examination to non-numeric Dony's results) [facility], ) ID Date Data Source [id number] 10/07/2019 12:00:00 AM EDT [facility] ([facility], ) Name Value Range Interpretation Code Description Data Supporting Source(s) Document(s ) PDF . Normal (applies to [facility]GEN (St non-numeric Dony's results) [facility], ) PDF Not applicable Normal (applies to [facility]GEN (St non-numeric Dony's results) [facility], ) ID Date Data Source [id number] 10/07/2019 12:00:00 AM EDT [facility] ([facility], ) Name Value Range Interpretation Description Data Sup porting Code Source(s) Document(s ) Glucose 129 mg/dL Above high normal [facility] (St [Mass/volume] [facility]ony's in Urine [facility], ) collected for unspecified duration Urea nitrogen 39 mg/dL Above high normal [facility] ( St [Mass/volume] Dony's in Serum or [facility], ) Plasma Creatinine 2.54 Above high normal [facility] (St [Interpretation mg/dL Dony's ] in Urine [facility], ) eGFR If 28 Below low normal MEDGEN (St NonAfricn Am mL/min/1. Dony's 73 [facility], ) BUN/Creatinine 15 Normal (applies MEDGEN (S t Ratio to non-numeric Dony's results) [facility], ) eGFR If Africn 32 Below low normal [facility]GEN ( St Am mL/min/1. Dony's 73 [facility], ) Sodium 145 Above high normal [facility]GEN (St [Moles/volume] mmol/L Dony's in Serum or [facility], ) Plasma Potassium 4.1 Normal (applies [facility]GEN (St [Mass/volume] mmol/L to non-numeric Dony's in Blood results) Medical, ) Chloride 111 Above high normal [facility] (St [Moles/volume] mmol/L [facility] in Serum or Medical, ) Plasma Calcium 8.2 mg/dL Below low normal [facility] (St [Moles/volume] [facility] in Urine Medical, ) collected for unspecified duration Carbon dioxide, 20 mmol/L Normal (applies [facility] ( St total to non-numeric Dony's [Moles/volume] results) Medical, ) in Serum or Plasma ID Date Data Source [id number] 10/07/2019 12:00:00 AM EDT [facility] ([facility], ) Name Value Range Interpretation Code Description Data Kimberly rce(s) Supporting Document(s ) ID Date Data Source [id number] 10/07/2019 12:00:00 AM EDT [facility] ([facility], ) Name Value Range Interpretation Code Description Data Supporting Source(s) Document(s ) PDF Not applicable Normal (applies to [facility] (St non-numeric Dony's results) Medical, ) PDF . Normal (applies to [facility] (St non-numeric Dony's results) Medical, ) ID Date Data Source [id number] 10/07/2019 12:00:00 AM EDT [facility] ([facility], ) Name Value Range Interpretation Code Description Data Supporting Source(s) Document(s ) Creatinine 145.9 Normal (applies to MEDGEN (St , Urine mg/dL non-numeric Dony's results) Medical, ) Albumin, 2994.7 Normal (applies to [facility] (St Urine ug/mL non-numeric [facility]ony's results) Medical, ) Alb/Creat 2053 mg/g Above high normal [facility] (St Ratio creat [facility], ) ID Date Data Source [id number] 10/07/2019 12:00:00 AM EDT [facility] ([facility], ) Name Value Range Interpretation Description Data Sup porting Code Source(s) Document(s ) WBC 0-5 Normal (applies [facility] (St to non-numeric Dony's results) Medical, ) RBC 0-2 Normal (applies [facility] (St to non-numeric Dony's results) Medical, PC) Epithelial 0-10 Normal (applies [facility] (St Cells (non to non-numeric Dony's renal) results) Medical, PC) Cast Type Hyaline Normal (applies [facility] (St casts to non-numeric [facility]ony's results) Medical, PC) Casts [#/area] Present Abnormal (applies [facility] (St in Urine to non-numeric Dony's sediment by results) Medical, PC) Automated count Mucus Threads Present Normal (applies [facility] (St to non-numeric [facility]ony's results) Medical, PC) Bacteria Few Normal (applies [facility] (St [Presence] in to non-numeric Dony's Prostatic results) Medical, PC) fluid by Light microscopy ID Date Data Source [id number] 10/07/2019 12:00:00 AM EDT [facility] ([facility]) Name Value Range Interpretation Description Data Sup porting Code Source(s) Document(s ) Specific gravity 1.022 Normal (applies [facility] (St of Pericardial to non-numeric Dony's fluid by results) Medical, Refractometry PC) pH of Lower 5.0 Normal (applies [facility] (St respiratory to non-numeric Dony's specimen results) Medical, PC) Appearance of Clear Normal (applies [facility] (St Abdomen to non-numeric Dony's results) Medical, PC) Urine-Color Yellow Normal (applies [facility] (St to non-numeric [facility]ony's results) Medical, PC) WBC Esterase Negative Normal (applies [facility] (St to non-numeric [facility]ony's results) Medical, PC) Protein Abnormal MED[facility] (St [Mass/volume] in (applies to [facility]ony's Lower non-numeric Medical, respiratory results) PC) specimen Ketones Negative Normal (applies [facility] (St [Presence] in to non-numeric Dony's Blood by Tablet results) Medical, PC) Glucose Abnormal [facility] (St [Mass/volume] in (applies to [facility]ony's Urine collected non-numeric Medical, for unspecified results) PC) duration Occult Blood Negative Normal (applies [facility] (St to non-numeric Dony's results) Medical, PC) Bilirubin Negative Normal (applies [facility] (St [Presence] in to non-numeric Dony's Peritoneal fluid results) Medical, PC) Urobilinogen,Nani 1.0 mg/dL Normal (applies [facility] (St i-Qn to non-numeric Dony's results) Medical, PC) Nitrite, Urine Negative Normal (applies [facility]GEN (S t to non-numeric Dony's results) Medical, ) Microscopic See below: Normal (applies [facility] (St Examination to non-numeric Dony's results) Medical, ) ID Date Data Source [id number] 10/07/2019 12:00:00 AM EDT [facility] ([facility], ) Name Value Range Interpretation Code Description Data Supporting Source(s) Document(s ) PDF . Normal (applies to [facility] (St non-numeric Dony's results) Medical, ) PDF Not applicable Normal (applies to [facility] (St non-numeric Dony's results) Medical, ) ID Date Data Source [id number] 10/07/2019 12:00:00 AM EDT [facility] ([facility], ) Name Value Range Interpretation Description Data Sup porting Code Source(s) Document(s ) Urea nitrogen 39 mg/dL Above high normal MED[facility] ( St [Mass/volume] Dony's in Serum or Medical, ) Plasma Glucose 129 mg/dL Above high normal [facility] (St [Mass/volume] Dony's in Urine [facility], ) collected for unspecified duration Creatinine 2.54 Above high normal [facility] (St [Interpretation mg/dL Dony's ] in Urine [facility], ) eGFR If 28 Below low normal MEDGEN (St NonAfricn Am mL/min/1. Dony's 73 [facility], ) eGFR If Africn 32 Below low normal [facility]GEN ( St Am mL/min/1. Dony's 73 [facility], ) BUN/Creatinine 15 Normal (applies MEDGEN (S t Ratio to non-numeric Dony's results) Medical, ) Sodium 145 Above high normal [facility]GEN (St [Moles/volume] mmol/L [facility]ony[facility] in Serum or Medical, ) Plasma Potassium 4.1 Normal (applies [facility]GEN (St [Mass/volume] mmol/L to non-numeric Dony's in Blood results) Medical, ) Chloride 111 Above high normal [facility] (St [Moles/volume] mmol/L [facility]ony[facility] in Serum or Medical, ) Plasma Carbon dioxide, 20 mmol/L Normal (applies [facility]GEN ( St total to non-numeric Dony's [Moles/volume] results) Medical, ) in Serum or Plasma Calcium 8.2 mg/dL Below low normal [facility] (St [Moles/volume] [facility]ony[facility] in Urine Medical, ) collected for unspecified duration ID Date Data Source [id number] 10/07/2019 12:00:00 AM EDT [facility] ([facility], ) Name Value Range Interpretation Code Description Data Kimberly rce(s) Supporting Document(s ) ID Date Data Source [id number] 10/07/2019 12:00:00 AM EDT [facility] ([facility], ) Name Value Range Interpretation Code Description Data Supporting Source(s) Document(s ) PDF Not applicable Normal (applies to [facility] (St non-numeric Dony's results) Medical, ) PDF . Normal (applies to [facility] (St non-numeric Dony's results) Medical, ) ID Date Data Source [id number] 10/07/2019 12:00:00 AM EDT [facility] ([facility], ) Name Value Range Interpretation Description Data Sup porting Code Source(s) Document(s ) WBC 0-5 Normal (applies [facility] (St to non-numeric Dony's results) Medical, PC) RBC 0-2 Normal (applies [facility] (St to non-numeric Dony's results) Medical, PC) Epithelial 0-10 Normal (applies [facility] (St Cells (non to non-numeric Dony's renal) results) Medical, PC) Casts [#/area] Present Abnormal (applies MEDGEN (St in Urine to non-numeric Dony's sediment by results) Medical, PC) Automated count Cast Type Hyaline Normal (applies MEDGEN (St casts to non-numeric Dony's results) Medical, ) Mucus Threads Present Normal (applies [facility]GEN (St to non-numeric Dony's results) Medical, PC) Bacteria Few Normal (applies [facility] (St [Presence] in to non-numeric Dony's Prostatic results) Medical, ) fluid by Light microscopy ID Date Data Source [id number] 10/07/2019 12:00:00 AM EDT [facility] ([facility], ) Name Value Range Interpretation Description Data Sup porting Code Source(s) Document(s ) Specific gravity 1.022 Normal (applies [facility]GEN (St of Pericardial to non-numeric Dony's fluid by results) Medical, Refractometry PC) pH of Lower 5.0 Normal (applies [facility]GEN (St respiratory to non-numeric Dony's specimen results) Medical, ) Urine-Color Yellow Normal (applies MEDGEN (St to non-numeric Dony's results) Medical, ) Appearance of Clear Normal (applies [facility]GEN (St Abdomen to non-numeric Dony's results) Medical, ) Protein Abnormal MEDGEN (St [Mass/volume] in (applies to Dony's Lower non-numeric Medical, respiratory results) ) specimen WBC Esterase Negative Normal (applies MEDGEN (St to non-numeric Dony's results) [facility], ) Glucose Abnormal MEDGEN (St [Mass/volume] in (applies to Dony's Urine collected non-numeric Medical, for unspecified results) ) duration Ketones Negative Normal (applies MEDGEN (St [Presence] in to non-numeric Dony's Blood by Tablet results) [facility], ) Bilirubin Negative Normal (applies MEDGEN (St [Presence] in to non-numeric Dony's Peritoneal fluid results) [facility], ) Occult Blood Negative Normal (applies MEDGEN (St to non-numeric Dony's results) [facility], ) Urobilinogen,Nani 1.0 mg/dL Normal (applies MEDGEN (St i-Qn to non-numeric [facility]ony[facility] results) [facility] [facility], ) Nitrite, Urine Negative Normal (applies MEDGEN (S t to non-numeric Dony's results) [facility], ) Microscopic See below: Normal (applies MEDGEN (St Examination to non-numeric Dony's results) [facility], ) ID Date Data Source [id number] 10/07/2019 12:00:00 AM EDT MEDGEN ([facility], ) Name Value Range Interpretation Code Description Data Supporting Source(s) Document(s ) PDF . Normal (applies to MEDGEN (St non-numeric Dony's results) [facility], ) PDF Not applicable Normal (applies to MEDGEN (St non-numeric Dony's results) [facility], ) ID Date Data Source [id number] 10/07/2019 12:00:00 AM EDT MEDGEN ([facility], ) Name Value Range Interpretation Description Data Sup porting Code Source(s) Document(s ) Glucose 129 mg/dL Above high normal MEDGEN (St [Mass/volume] Dony's in Urine [facility], ) collected for unspecified duration Urea nitrogen 39 mg/dL Above high normal MEDGEN ( St [Mass/volume] Dony's in Serum or Medical, ) Plasma eGFR If 28 Below low normal MEDGEN (St NonAfricn Am mL/min/1. Dony's 73 [facility], ) Creatinine 2.54 Above high normal MEDGEN (St [Interpretation mg/dL Dony's ] in Urine [facility], ) eGFR If Africn 32 Below low normal MEDGEN ( St Am mL/min/1. Dony's 73 [facility], ) Sodium 145 Above high normal MEDGEN (St [Moles/volume] mmol/L Dony's in Serum or Medical, ) Plasma BUN/Creatinine 15 Normal (applies MEDGEN (S t Ratio to non-numeric Dony's results) [facility], ) Potassium 4.1 Normal (applies MEDGEN (St [Mass/volume] mmol/L to non-numeric Dony's in Blood results) Medical, ) Chloride 111 Above high normal MEDGEN (St [Moles/volume] mmol/L Dony's in Serum or Medical, ) Plasma Carbon dioxide, 20 mmol/L Normal (applies MEDGEN ( St total to non-numeric Dony's [Moles/volume] results) Medical, ) in Serum or Plasma Calcium 8.2 mg/dL Below low normal MEDGEN (St [Moles/volume] Dony's in Urine [facility], ) collected for unspecified duration ID Date Data Source [id number] 10/07/2019 12:00:00 AM EDT [facility] ([facility], ) Name Value Range Interpretation Code Description Data Kimberly rce(s) Supporting Document(s ) ID Date Data Source [id number] 10/07/2019 12:00:00 AM EDT [facility] ([facility] Name Value Range Interpretation Code Description Data Supporting Source(s) Document(s ) PDF . Normal (applies to MEDGEN (St non-numeric Dony's results) [facility], ) PDF Not applicable Normal (applies to MEDGEN (St non-numeric Dony's results) [facility], ) ID Date Data Source [id number] 10/07/2019 12:00:00 AM EDT [facility] ([facility], ) Name Value Range Interpretation Code Description Data Supporting Source(s) Document(s ) Creatinine 145.9 Normal (applies to MEDGEN (St , Urine mg/dL non-numeric Dony's results) [facility], ) Albumin, 2994.7 Normal (applies to MEDGEN (St Urine ug/mL non-numeric [facility] results) [facility]) Alb/Creat 2053 mg/g Above high normal MEDGEN (St Ratio creat [facility], ) ID Date Data Source [id number] 10/07/2019 12:00:00 AM EDT MEDGEN (St [facility], ) Name Value Range Interpretation Description Data Sup porting Code Source(s) Document(s ) WBC 0-5 Normal (applies MEDGEN (St to non-numeric Dony's results) [facility]) RBC 0-2 Normal (applies MEDGEN (St to non-numeric Dony's results) [facility]) Epithelial 0-10 Normal (applies MEDGEN (St Cells (non to non-numeric Dony's renal) results) [facility], [facility]) Casts [#/area] Present Abnormal (applies MEDGEN (St in Urine to non-numeric Dony's sediment by results) [facility], [facility]) Automated count Cast Type Hyaline Normal (applies MEDGEN (St casts to non-numeric [facility]ony's results) [facility], [facility]) Mucus Threads Present Normal (applies MEDGEN (St to non-numeric [facility]'s results) [facility]) Bacteria Few Normal (applies MEDGEN (St [Presence] in to non-numeric Dony's Prostatic results) [facility], [facility]) fluid by Light microscopy ID Date Data Source [id number] 10/07/2019 12:00:00 AM EDT [facility] ([facility], ) Name Value Range Interpretation Description Data Sup porting Code Source(s) Document(s ) Specific gravity 1.022 Normal (applies MEDGEN (St of Pericardial to non-numeric Dony's fluid by results) Medical, Refractometry ) pH of Lower 5.0 Normal (applies MEDGEN (St respiratory to non-numeric Dony's specimen results) [facility], [facility]) Urine-Color Yellow Normal (applies MEDGEN (St to non-numeric Dony's results) [facility], [facility]) Appearance of Clear Normal (applies MEDGEN (St Abdomen to non-numeric Dony's results) [facility], [facility]) WBC Esterase Negative Normal (applies MEDGEN (St to non-numeric Dony's results) [facility], [facility]) Protein Abnormal MEDGEN (St [Mass/volume] in (applies to [facility]'s Lower non-numeric Medical, respiratory results) ) specimen Glucose Abnormal MEDGEN (St [Mass/volume] in (applies to Dony's Urine collected non-numeric Medical, for unspecified results) ) duration Ketones Negative Normal (applies MEDGEN (St [Presence] in to non-numeric Dony's Blood by Tablet results) [facility], ) Bilirubin Negative Normal (applies MEDGEN (St [Presence] in to non-numeric Dony's Peritoneal fluid results) [facility], ) Occult Blood Negative Normal (applies MEDGEN (St to non-numeric Dony's results) [facility], ) Urobilinogen,Nani 1.0 mg/dL Normal (applies MEDGEN (St i-Qn to non-numeric Dony's results) [facility], ) Nitrite, Urine Negative Normal (applies MEDGEN (S t to non-numeric Dony's results) [facility], ) Microscopic See below: Normal (applies MEDGEN (St Examination to non-numeric Dony's results) [facility], ) ID Date Data Source [id number] 10/07/2019 12:00:00 AM EDT MEDGEN ([facility], ) Name Value Range Interpretation Code Description Data Supporting Source(s) Document(s ) PDF . Normal (applies to MEDGEN (St non-numeric Dony's results) [facility], ) PDF Not applicable Normal (applies to MEDGEN (St non-numeric Dony's results) [facility], ) ID Date Data Source [id number] 10/07/2019 12:00:00 AM EDT MEDGEN ([facility], ) Name Value Range Interpretation Description Data Sup porting Code Source(s) Document(s ) Urea nitrogen 39 mg/dL Above high normal MEDGEN ( St [Mass/volume] Dony's in Serum or Medical, ) Plasma Glucose 129 mg/dL Above high normal MEDGEN (St [Mass/volume] Dony's in Urine [facility], ) collected for unspecified duration Creatinine 2.54 Above high normal MEDGEN (St [Interpretation mg/dL Dony's ] in Urine [facility], ) eGFR If 28 Below low normal MEDGEN (St NonAfricn Am mL/min/1. Dony's 73 [facility], ) eGFR If Africn 32 Below low normal MEDGEN ( St Am mL/min/1. Dony's 73 [facility], ) BUN/Creatinine 15 Normal (applies MEDGEN (S t Ratio to non-numeric Dony's results) Medical, ) Sodium 145 Above high normal MEDGEN (St [Moles/volume] mmol/L Dony's in Serum or Medical, ) Plasma Chloride 111 Above high normal MEDGEN (St [Moles/volume] mmol/L Dony[facility] in Serum or Medical, ) Plasma Potassium 4.1 Normal (applies MEDGEN (St [Mass/volume] mmol/L to non-numeric Dony's in Blood results) Medical, ) Carbon dioxide, 20 mmol/L Normal (applies MEDGEN ( St total to non-numeric Dony's [Moles/volume] results) Medical, ) in Serum or Plasma Calcium 8.2 mg/dL Below low normal MEDGEN (St [Moles/volume] Dony's in Urine [facility], ) collected for unspecified duration ID Date Data Source [id number] 10/07/2019 12:00:00 AM EDT MEDGEN ([facility], ) Name Value Range Interpretation Code Description Data Supporting Source(s) Document(s ) Creatinine 145.9 Normal (applies to MEDGEN (St , Urine mg/dL non-numeric Dony's results) Medical, ) Albumin, 2994.7 Normal (applies to MEDGEN (St Urine ug/mL non-numeric Dony's results) [facility], ) Alb/Creat 2053 mg/g Above high normal MEDGEN (St Ratio creat Dony's [facility], ) ID Date Data Source [id number] 10/07/2019 12:00:00 AM EDT MEDGEN ([facility], ) Name Value Range Interpretation Description Data Sup porting Code Source(s) Document(s ) WBC 0-5 Normal (applies MEDGEN (St to non-numeric Dony's results) Medical, ) RBC 0-2 Normal (applies MEDGEN (St to non-numeric Dony's results) Medical, ) Epithelial 0-10 Normal (applies MEDGEN (St Cells (non to non-numeric Dony's renal) results) Medical, ) Casts [#/area] Present Abnormal (applies MEDGEN (St in Urine to non-numeric Dony's sediment by results) [facility], ) Automated count Cast Type Hyaline Normal (applies MEDGEN (St casts to non-numeric Dony's results) [facility], [facility]) Mucus Threads Present Normal (applies MEDGEN (St to non-numeric Dony's results) [facility], [facility]) Bacteria Few Normal (applies MEDGEN (St [Presence] in to non-numeric Dony's Prostatic results) Medical, ) fluid by Light microscopy ID Date Data Source [id number] 10/07/2019 12:00:00 AM EDT [facility] ([facility], ) Name Value Range Interpretation Description Data Sup porting Code Source(s) Document(s ) Specific gravity 1.022 Normal (applies MEDGEN (St of Pericardial to non-numeric Dony's fluid by results) [facility], Refractometry PC) pH of Lower 5.0 Normal (applies MEDGEN (St respiratory to non-numeric Dony's specimen results) Medical, ) Urine-Color Yellow Normal (applies MEDGEN (St to non-numeric Dony's results) Medical, ) Appearance of Clear Normal (applies MEDGEN (St Abdomen to non-numeric Dony's results) [facility], [facility]) WBC Esterase Negative Normal (applies MEDGEN (St to non-numeric Dony's results) [facility], [facility]) Protein Abnormal MEDGEN (St [Mass/volume] in (applies to Dony's Lower non-numeric Medical, respiratory results) PC) specimen Glucose Abnormal MEDGEN (St [Mass/volume] in (applies to Dony's Urine collected non-numeric Medical, for unspecified results) PC) duration Ketones Negative Normal (applies MEDGEN (St [Presence] in to non-numeric Dony's Blood by Tablet results) Medical, ) Occult Blood Negative Normal (applies MEDGEN (St to non-numeric [facility]ony's results) [facility], [facility]) Bilirubin Negative Normal (applies MEDGEN (St [Presence] in to non-numeric Dony's Peritoneal fluid results) [facility], [facility]) Urobilinogen,Nani 1.0 mg/dL Normal (applies MEDGEN (St i-Qn to non-numeric Dony's results) [facility], [facility]) Nitrite, Urine Negative Normal (applies MEDGEN (S t to non-numeric Dony's results) [facility], [facility]) Microscopic See below: Normal (applies MEDGEN (St Examination to non-numeric Dony's results) Medical, ) ID Date Data Source [id number] 10/07/2019 12:00:00 AM EDT [facility] ([facility]) Name Value Range Interpretation Code Description Data Supporting Source(s) Document(s ) PDF . Normal (applies to MEDGEN (St non-numeric Dony's results) Medical, ) PDF Not applicable Normal (applies to MEDGEN (St non-numeric Dony's results) Medical, ) ID Date Data Source [id number] 10/07/2019 12:00:00 AM EDT [facility] ([facility]) Name Value Range Interpretation Description Data Sup porting Code Source(s) Document(s ) Glucose 129 mg/dL Above high normal MEDGEN (St [Mass/volume] Dony's in Urine Medical, ) collected for unspecified duration Urea nitrogen 39 mg/dL Above high normal MEDGEN ( St [Mass/volume] Dony's in Serum or Medical, [facility]) Plasma Creatinine 2.54 Above high normal MEDGEN (St [Interpretation mg/dL Dony's ] in Urine Medical, ) eGFR If 28 Below low normal MEDGEN (St NonAfricn Am mL/min/1. Dony's 73 [facility], ) eGFR If Africn 32 Below low normal MEDGEN ( St Am mL/min/1. Dony's 73 [facility], ) BUN/Creatinine 15 Normal (applies MEDGEN (S t Ratio to non-numeric Dony's results) Medical, ) Sodium 145 Above high normal MEDGEN (St [Moles/volume] mmol/L Dony's in Serum or Medical, PC) Plasma Potassium 4.1 Normal (applies MEDGEN (St [Mass/volume] mmol/L to non-numeric Dony's in Blood results) Medical, ) Chloride 111 Above high normal MEDGEN (St [Moles/volume] mmol/L Dony's in Serum or Medical, PC) Plasma Carbon dioxide, 20 mmol/L Normal (applies MEDGEN ( St total to non-numeric Dony's [Moles/volume] results) Medical, ) in Serum or Plasma Calcium 8.2 mg/dL Below low normal MEDGEN (St [Moles/volume] [facility]ony's in Urine Medical, ) collected for unspecified duration ID Date Data Source [id number] 10/07/2019 12:00:00 AM EDT [facility] ([facility]) Name Value Range Interpretation Code Description Data Kimberly rce(s) Supporting Document(s ) ID Date Data Source [id number] 10/07/2019 12:00:00 AM EDT [facility] ([facility], ) Name Value Range Interpretation Code Description Data Supporting Source(s) Document(s ) PDF . Normal (applies to MEDGEN (St non-numeric Dony's results) Medical, ) PDF Not applicable Normal (applies to MEDGEN (St non-numeric Dony's results) Medical, ) ID Date Data Source [id number] 10/07/2019 12:00:00 AM EDT [facility] ([facility], ) Name Value Range Interpretation Code Description Data Supporting Source(s) Document(s ) Creatinine 145.9 Normal (applies to MEDGEN (St , Urine mg/dL non-numeric Dony's results) Medical, ) Albumin, 2994.7 Normal (applies to MEDGEN (St Urine ug/mL non-numeric Dony's results) Medical, ) Alb/Creat 2053 mg/g Above high normal MEDGEN (St Ratio creat [facility], ) ID Date Data Source [id number] 10/07/2019 12:00:00 AM EDT [facility] ([facility], ) Name Value Range Interpretation Description Data Sup porting Code Source(s) Document(s ) WBC 0-5 Normal (applies MEDGEN (St to non-numeric Dony's results) Medical, ) RBC 0-2 Normal (applies MEDGEN (St to non-numeric Dony's results) Medical, ) Epithelial 0-10 Normal (applies MEDGEN (St Cells (non to non-numeric Dony's renal) results) Medical, ) Casts [#/area] Present Abnormal (applies MEDGEN (St in Urine to non-numeric Dony's sediment by results) Medical, ) Automated count Cast Type Hyaline Normal (applies MEDGEN (St casts to non-numeric Dony's results) Medical, ) Mucus Threads Present Normal (applies MEDGEN (St to non-numeric Dony's results) Medical, ) Bacteria Few Normal (applies MEDGEN (St [Presence] in to non-numeric Dony's Prostatic results) Medical, ) fluid by Light microscopy ID Date Data Source [id number] 10/07/2019 12:00:00 AM EDT [facility] ([facility], ) Name Value Range Interpretation Description Data Sup porting Code Source(s) Document(s ) Specific gravity 1.022 Normal (applies MEDGEN (St of Pericardial to non-numeric Dony's fluid by results) Medical, Refractometry PC) pH of Lower 5.0 Normal (applies MEDGEN (St respiratory to non-numeric Dony's specimen results) [facility], [facility]) Appearance of Clear Normal (applies MEDGEN (St Abdomen to non-numeric Dony's results) [facility], [facility]) Urine-Color Yellow Normal (applies MEDGEN (St to non-numeric Dony's results) Medical, PC) WBC Esterase Negative Normal (applies MEDGEN (St to non-numeric Odny's results) Medical, PC) Protein Abnormal MEDGEN (St [Mass/volume] in (applies to Dony's Lower non-numeric Medical, respiratory results) PC) specimen Glucose Abnormal MEDGEN (St [Mass/volume] in (applies to Dony's Urine collected non-numeric Medical, for unspecified results) PC) duration Ketones Negative Normal (applies MEDGEN (St [Presence] in to non-numeric Dony's Blood by Tablet results) Medical, [facility]) Occult Blood Negative Normal (applies MEDGEN (St to non-numeric Dony's results) [facility], [facility]) Bilirubin Negative Normal (applies MEDGEN (St [Presence] in to non-numeric Dony's Peritoneal fluid results) Medical, PC) Urobilinogen,Nani 1.0 mg/dL Normal (applies MEDGEN (St i-Qn to non-numeric Dony's results) Medical, [facility]) Nitrite, Urine Negative Normal (applies MEDGEN (S t to non-numeric Dony's results) Medical, [facility]) Microscopic See below: Normal (applies MEDGEN (St Examination to non-numeric Dony's results) Medical, [facility]) ID Date Data Source [id number] 10/07/2019 12:00:00 AM EDT [facility] ([facility]) Name Value Range Interpretation Code Description Data Supporting Source(s) Document(s ) PDF . Normal (applies to MEDGEN (St non-numeric Dony's results) [facility], [facility]) PDF Not applicable Normal (applies to MEDGEN (St non-numeric Dony's results) [facility], [facility]) ID Date Data Source [id number] 10/07/2019 12:00:00 AM EDT [facility] ([facility], ) Name Value Range Interpretation Description Data Sup porting Code Source(s) Document(s ) Glucose 129 mg/dL Above high normal MEDGEN (St [Mass/volume] Dony's in Urine [facility], ) collected for unspecified duration Urea nitrogen 39 mg/dL Above high normal MEDGEN ( St [Mass/volume] Dony's in Serum or [facility], ) Plasma eGFR If 28 Below low normal MEDGEN (St NonAfricn Am mL/min/1. Dony's 73 [facility], ) Creatinine 2.54 Above high normal MEDGEN (St [Interpretation mg/dL Dony's ] in Urine [facility], ) eGFR If Africn 32 Below low normal MEDGEN ( St Am mL/min/1. Dony's 73 [facility], ) BUN/Creatinine 15 Normal (applies MEDGEN (S t Ratio to non-numeric Dony's results) [facility]) Sodium 145 Above high normal MEDGEN (St [Moles/volume] mmol/L Dony's in Serum or Medical, ) Plasma Chloride 111 Above high normal MEDGEN (St [Moles/volume] mmol/L Dony's in Serum or [facility], ) Plasma Potassium 4.1 Normal (applies MEDGEN (St [Mass/volume] mmol/L to non-numeric Dony's in Blood results) [facility]) Carbon dioxide, 20 mmol/L Normal (applies MEDGEN ( St total to non-numeric Dony's [Moles/volume] results) [facility], ) in Serum or Plasma Calcium 8.2 mg/dL Below low normal MEDGEN (St [Moles/volume] Dony's in Urine [facility], ) collected for unspecified duration ID Date Data Source [id number] 10/07/2019 12:00:00 AM EDT [facility] ([facility], ) Name Value Range Interpretation Code Description Data Kimberly rce(s) Supporting Document(s ) ID Date Data Source [id number] 10/07/2019 12:00:00 AM EDT [facility] ([facility], ) Name Value Range Interpretation Code Description Data Supporting Source(s) Document(s ) Creatinine 145.9 Normal (applies to MEDGEN (St , Urine mg/dL non-numeric Dony's results) [facility]) Albumin, 2994.7 Normal (applies to MEDGEN (St Urine ug/mL non-numeric Dony's results) [facility], ) Alb/Creat 2053 mg/g Above high normal MEDGEN (St Ratio creat Dony's [facility], ) ID Date Data Source [id number] 10/07/2019 12:00:00 AM EDT [facility] ([facility], ) Name Value Range Interpretation Code Description Data Supporting Source(s) Document(s ) PDF . Normal (applies to MEDGEN (St non-numeric Dony's results) Medical, ) PDF Not applicable Normal (applies to MEDGEN (St non-numeric Dony's results) [facility], ) ID Date Data Source [id number] 10/07/2019 12:00:00 AM EDT [facility] ([facility], ) Name Value Range Interpretation Description Data Sup porting Code Source(s) Document(s ) Glucose 129 mg/dL Above high normal MEDGEN (St [Mass/volume] Dony's in Urine [facility], ) collected for unspecified duration Creatinine 2.54 Above high normal MEDGEN (St [Interpretation mg/dL Dony's ] in Urine [facility], ) Urea nitrogen 39 mg/dL Above high normal MEDGEN ( St [Mass/volume] Dony's in Serum or [facility], ) Plasma eGFR If 28 Below low normal MEDGEN (St NonAfricn Am mL/min/1. Dony's 73 [facility], ) eGFR If Africn 32 Below low normal MEDGEN ( St Am mL/min/1. Dony's 73 [facility], ) BUN/Creatinine 15 Normal (applies MEDGEN (S t Ratio to non-numeric Dony's results) [facility], ) Sodium 145 Above high normal MEDGEN (St [Moles/volume] mmol/L Dony's in Serum or Medical, ) Plasma Chloride 111 Above high normal MEDGEN (St [Moles/volume] mmol/L Dony's in Serum or Medical, ) Plasma Potassium 4.1 Normal (applies MEDGEN (St [Mass/volume] mmol/L to non-numeric Dony's in Blood results) [facility], ) Carbon dioxide, 20 mmol/L Normal (applies MEDGEN ( St total to non-numeric Odny's [Moles/volume] results) Medical, ) in Serum or Plasma Calcium 8.2 mg/dL Below low normal [facility] (St [Moles/volume] Dony's in Urine Medical, ) collected for unspecified duration ID Date Data Source [id number] 10/07/2019 12:00:00 AM EDT [facility] ([facility], ) Name Value Range Interpretation Code Description Data Kimberly rce(s) Supporting Document(s ) ID Date Data Source [id number] 10/07/2019 12:00:00 AM EDT [facility] ([facility], ) Name Value Range Interpretation Code Description Data Supporting Source(s) Document(s ) PDF . Normal (applies to MEDGEN (St non-numeric Dony's results) Medical, ) PDF Not applicable Normal (applies to MEDGEN (St non-numeric Dony's results) Medical, ) ID Date Data Source [id number] 10/07/2019 12:00:00 AM EDT [facility] ([facility], ) Name Value Range Interpretation Code Description Data Supporting Source(s) Document(s ) Creatinine 145.9 Normal (applies to MEDGEN (St , Urine mg/dL non-numeric Dony's results) Medical, ) Albumin, 2994.7 Normal (applies to MEDGEN (St Urine ug/mL non-numeric Dony's results) Medical, ) Alb/Creat 2053 mg/g Above high normal MEDGEN (St Ratio creat Dony's [facility], ) ID Date Data Source [id number] 10/07/2019 12:00:00 AM EDT [facility] ([facility], ) Name Value Range Interpretation Description Data Sup porting Code Source(s) Document(s ) WBC 0-5 Normal (applies MEDGEN (St to non-numeric Dony's results) Medical, ) RBC 0-2 Normal (applies MEDGEN (St to non-numeric Dony's results) Medical, ) Epithelial 0-10 Normal (applies MEDGEN (St Cells (non to non-numeric Dony's renal) results) Medical, ) Cast Type Hyaline Normal (applies MEDGEN (St casts to non-numeric Dony's results) Medical, ) Casts [#/area] Present Abnormal (applies MEDGEN (St in Urine to non-numeric Dony's sediment by results) Medical, ) Automated count Mucus Threads Present Normal (applies MEDGEN (St to non-numeric Dony's results) Medical, ) Bacteria Few Normal (applies MEDGEN (St [Presence] in to non-numeric Dony's Prostatic results) Medical, ) fluid by Light microscopy ID Date Data Source [id number] 10/07/2019 12:00:00 AM EDT [facility] ([facility], ) Name Value Range Interpretation Description Data Sup porting Code Source(s) Document(s ) Specific gravity 1.022 Normal (applies [facility] (St of Pericardial to non-numeric [facility] fluid by results) Medical, [facility]) Urine-Color Yellow Normal (applies [facility] (St to non-numeric [facility] results) [facility], PC) pH of Lower 5.0 Normal (applies [facility] (St respiratory to non-numeric [facility] specimen results) Medical, ) Appearance of Clear Normal (applies [facility] (St Abdomen to non-numeric [facility] results) Medical, PC) WBC Esterase Negative Normal (applies [facility] (St to non-numeric [facility] results) Medical, PC) Protein Abnormal [facility] (St [Mass/volume] in (applies to [facility] Lower non-numeric Medical, respiratory results) PC) specimen Glucose Abnormal [facility] (St [Mass/volume] in (applies to [facility] Urine collected non-numeric Medical, for unspecified results) PC) duration Ketones Negative Normal (applies [facility] (St [Presence] in to non-numeric [facility] Blood by Tablet results) Medical, PC) Occult Blood Negative Normal (applies [facility] (St to non-numeric [facility] results) Medical, PC) Urobilinogen,Nani 1.0 mg/dL Normal (applies [facility] (St i-Qn to non-numeric [facility] results) Medical, PC) Bilirubin Negative Normal (applies [facility] (St [Presence] in to non-numeric [facility] Peritoneal fluid results) Medical, PC) Nitrite, Urine Negative Normal (applies [facility] (S t to non-numeric [facility] results) Medical, PC) Microscopic See below: Normal (applies [facility] (St Examination to non-numeric [facility] results) Medical, ) ID Date Data Source [id number] 10/07/2019 12:00:00 AM EDT [facility] ([facility], ) Name Value Range Interpretation Code Description Data Supporting Source(s) Document(s ) PDF . Normal (applies to [facility] (St non-numeric [facility] results) Medical, ) PDF Not applicable Normal (applies to [facility] (St non-numeric [facility] results) Medical, ) ID Date Data Source [id number] 10/07/2019 12:00:00 AM EDT [facility] ([facility], ) Name Value Range Interpretation Description Data Sup porting Code Source(s) Document(s ) Glucose 129 mg/dL Above high normal [facility] (St [Mass/volume] [facility] in Urine [facility], ) collected for unspecified duration Urea nitrogen 39 mg/dL Above high normal [facility] ( St [Mass/volume] [facility] in Serum or Medical, ) Plasma eGFR If 28 Below low normal [facility] (St NonAfricn Am mL/min/1. [facility] 73 [facility], ) Creatinine 2.54 Above high normal [facility] (St [Interpretation mg/dL [facility] ] in Urine [facility], ) eGFR If Africn 32 Below low normal [facility] ( St Am mL/min/1. [facility] 73 [facility], ) BUN/Creatinine 15 Normal (applies [facility] (S t Ratio to non-numeric [facility] results) Medical, ) Sodium 145 Above high normal [facility] (St [Moles/volume] mmol/L [facility] in Serum or Medical, ) Plasma Chloride 111 Above high normal [facility] (St [Moles/volume] mmol/L [facility] in Serum or Medical, PC) Plasma Potassium 4.1 Normal (applies [facility] (St [Mass/volume] mmol/L to non-numeric [facility] in Blood results) Medical, ) Carbon dioxide, 20 mmol/L Normal (applies [facility] ( St total to non-numeric [facility] [Moles/volume] results) Medical, ) in Serum or Plasma Calcium 8.2 mg/dL Below low normal [facility] (St [Moles/volume] [facility] in Urine [facility], ) collected for unspecified duration ID Date Data Source [id number] 10/07/2019 12:00:00 AM EDT [facility] ([facility]) Name Value Range Interpretation Code Description Data Kimberly rce(s) Supporting Document(s ) ID Date Data Source [id number] 10/07/2019 12:00:00 AM EDT [facility] ([facility], ) Name Value Range Interpretation Code Description Data Supporting Source(s) Document(s ) PDF Not applicable Normal (applies to [facility] (St non-numeric [facility] results) Medical, ) PDF . Normal (applies to [facility] (St non-numeric [facility] results) [facility], ) ID Date Data Source [id number] 10/07/2019 12:00:00 AM EDT [facility] ([facility], ) Name Value Range Interpretation Code Description Data Supporting Source(s) Document(s ) Creatinine 145.9 Normal (applies to [facility] (St , Urine mg/dL non-numeric [facility] results) [facility], ) Albumin, 2994.7 Normal (applies to [facility] (St Urine ug/mL non-numeric [facility] results) Medical, ) Alb/Creat 2053 mg/g Above high normal [facility] (St Ratio creat [facility]'s [facility], ) ID Date Data Source [id number] 10/07/2019 12:00:00 AM EDT [facility] ([facility], ) Name Value Range Interpretation Description Data Sup porting Code Source(s) Document(s ) WBC 0-5 Normal (applies [facility] (St to non-numeric [facility] results) Medical, ) RBC 0-2 Normal (applies [facility] (St to non-numeric [facility] results) Medical, ) Epithelial 0-10 Normal (applies [facility] (St Cells (non to non-numeric [facility] renal) results) Medical, ) Casts [#/area] Present Abnormal (applies [facility] (St in Urine to non-numeric [facility] sediment by results) Medical, ) Automated count Cast Type Hyaline Normal (applies [facility] (St casts to non-numeric [facility] results) Medical, ) Mucus Threads Present Normal (applies [facility] (St to non-numeric [facility] results) Medical, ) Bacteria Few Normal (applies [facility] (St [Presence] in to non-numeric [facility] Prostatic results) Medical, ) fluid by Light microscopy ID Date Data Source [id number] 10/07/2019 12:00:00 AM EDT [facility] ([facility], ) Name Value Range Interpretation Description Data Sup porting Code Source(s) Document(s ) Specific gravity 1.022 Normal (applies [facility] (St of Pericardial to non-numeric [facility] fluid by results) [facility], [facility]) Urine-Color Yellow Normal (applies [facility] (St to non-numeric [facility] results) Medical, ) pH of Lower 5.0 Normal (applies [facility] (St respiratory to non-numeric [facility] specimen results) Medical, ) WBC Esterase Negative Normal (applies [facility] (St to non-numeric [facility] results) Medical, ) Appearance of Clear Normal (applies [facility] (St Abdomen to non-numeric [facility] results) Medical, ) Protein Abnormal [facility] (St [Mass/volume] in (applies to [facility] Lower non-numeric Medical, respiratory results) PC) specimen Glucose Abnormal [facility] (St [Mass/volume] in (applies to [facility] Urine collected non-numeric Medical, for unspecified results) PC) duration Ketones Negative Normal (applies [facility] (St [Presence] in to non-numeric [facility] Blood by Tablet results) Medical, ) Occult Blood Negative Normal (applies [facility] (St to non-numeric [facility] results) Medical, ) Urobilinogen,Nani 1.0 mg/dL Normal (applies [facility] (St i-Qn to non-numeric [facility] results) Medical, ) Bilirubin Negative Normal (applies [facility] (St [Presence] in to non-numeric [facility] Peritoneal fluid results) Medical, ) Nitrite, Urine Negative Normal (applies [facility] (S t to non-numeric [facility] results) Medical, ) Microscopic See below: Normal (applies [facility] (St Examination to non-numeric [facility] results) Medical, ) ID Date Data Source [id number] 10/07/2019 12:00:00 AM EDT [facility] ([facility], ) Name Value Range Interpretation Code Description Data Supporting Source(s) Document(s ) PDF . Normal (applies to [facility] (St non-numeric [facility] results) Medical, ) PDF Not applicable Normal (applies to [facility] (St non-numeric [facility] results) [facility], ) ID Date Data Source [id number] 10/07/2019 12:00:00 AM EDT [facility] ([facility], ) Name Value Range Interpretation Description Data Sup porting Code Source(s) Document(s ) Glucose 129 mg/dL Above high normal [facility] (St [Mass/volume] [facility] in Urine [facility], ) collected for unspecified duration Urea nitrogen 39 mg/dL Above high normal [facility] ( St [Mass/volume] [facility] in Serum or [facility], ) Plasma Creatinine 2.54 Above high normal [facility] (St [Interpretation mg/dL [facility] ] in Urine [facility], ) eGFR If 28 Below low normal [facility] (St NonAfricn Am mL/min/1. [facility] 73 [facility], ) eGFR If Africn 32 Below low normal [facility] ( St Am mL/min/1. [facility] 73 [facility], ) Sodium 145 Above high normal [facility] (St [Moles/volume] mmol/L [facility] in Serum or Medical, ) Plasma BUN/Creatinine 15 Normal (applies [facility] (S t Ratio to non-numeric [facility] results) [facility], ) Potassium 4.1 Normal (applies [facility] (St [Mass/volume] mmol/L to non-numeric [facility] in Blood results) [facility], ) Chloride 111 Above high normal [facility] (St [Moles/volume] mmol/L [facility] in Serum or [facility], ) Plasma Carbon dioxide, 20 mmol/L Normal (applies [facility] ( St total to non-numeric [facility] [Moles/volume] results) [facility], ) in Serum or Plasma Calcium 8.2 mg/dL Below low normal [facility] (St [Moles/volume] [facility] in Urine [facility], ) collected for unspecified duration ID Date Data Source [id number] 10/07/2019 12:00:00 AM EDT [facility] ([facility], ) Name Value Range Interpretation Code Description Data Kimberly rce(s) Supporting Document(s ) ID Date Data Source [id number] 10/07/2019 12:00:00 AM EDT [facility] ([facility], ) Name Value Range Interpretation Description Data Sup porting Code Source(s) Document(s ) Urine-Color Yellow Normal (applies [facility] (St to non-numeric [facility] results) Medical, ) Appearance of Clear Normal (applies [facility] (St Abdomen to non-numeric [facility] results) Medical, ) Protein Abnormal [facility] (St [Mass/volume] (applies to [facility] in Lower non-numeric Medical, respiratory results) PC) specimen WBC Esterase Negative Normal (applies [facility] (St to non-numeric [facility] results) Medical, ) Glucose Abnormal [facility] (St [Mass/volume] (applies to [facility] in Urine non-numeric Medical, collected for results) PC) unspecified duration Ketones Negative Normal (applies [facility] (St [Presence] in to non-numeric [facility] Blood by results) Medical, Tablet PC) Occult Blood Negative Normal (applies [facility] (St to non-numeric [facility] results) Medical, ) Bilirubin Negative Normal (applies [facility] (St [Presence] in to non-numeric [facility] Peritoneal results) Medical, fluid PC) Urobilinogen,S 1.0 mg/dL Normal (applies [facility] (S t mere-Qn to non-numeric [facility] results) Medical, ) Nitrite, Urine Negative Normal (applies [facility] (S t to non-numeric [facility] results) Medical, ) Microscopic See below: Normal (applies [facility] (St Examination to non-numeric [facility] results) Medical, ) PDF Not Normal (applies [facility] (St applicable to non-numeric [facility] results) Medical, ) PDF . Normal (applies [facility] (St to non-numeric [facility] results) Medical, ) ID Date Data Source [id number] 10/07/2019 12:00:00 AM EDT [facility] ([facility], ) Name Value Range Interpretation Code Description Data Supporting Source(s) Document(s ) Creatinine 145.9 Normal (applies to [facility] (St , Urine mg/dL non-numeric [facility] results) Medical, ) Albumin, 2994.7 Normal (applies to [facility] (St Urine ug/mL non-numeric [facility] results) Medical, ) Alb/Creat 2053 mg/g Above high normal [facility] (St Ratio creat [facility], ) ID Date Data Source [id number] 10/07/2019 12:00:00 AM EDT [facility] ([facility], ) Name Value Range Interpretation Description Data Sup porting Code Source(s) Document(s ) WBC 0-5 Normal (applies [facility] (St to non-numeric [facility] results) Medical, ) RBC 0-2 Normal (applies [facility] (St to non-numeric [facility] results) Medical, PC) Epithelial 0-10 Normal (applies [facility] (St Cells (non to non-numeric [facility] renal) results) Medical, PC) Casts [#/area] Present Abnormal (applies [facility] (St in Urine to non-numeric [facility] sediment by results) Medical, PC) Automated count Cast Type Hyaline Normal (applies [facility] (St casts to non-numeric [facility] results) Medical, PC) Mucus Threads Present Normal (applies [facility] (St to non-numeric [facility] results) Medical, PC) Bacteria Few Normal (applies [facility] (St [Presence] in to non-numeric [facility] Prostatic results) Medical, PC) fluid by Light microscopy ID Date Data Source [id number] 10/07/2019 12:00:00 AM EDT [facility] ([facility]) Name Value Range Interpretation Description Data Sup porting Code Source(s) Document(s ) Specific gravity 1.022 Normal (applies [facility] (St of Pericardial to non-numeric [facility] fluid by results) Medical, Refractometry PC) pH of Lower 5.0 Normal (applies [facility] (St respiratory to non-numeric [facility] specimen results) Medical, PC) Urine-Color Yellow Normal (applies [facility] (St to non-numeric [facility] results) Medical, PC) Appearance of Clear Normal (applies [facility] (St Abdomen to non-numeric [facility] results) Medical, PC) WBC Esterase Negative Normal (applies [facility] (St to non-numeric [facility] results) Medical, PC) Protein Abnormal [facility] (St [Mass/volume] in (applies to [facility] Lower non-numeric Medical, respiratory results) PC) specimen Glucose Abnormal [facility] (St [Mass/volume] in (applies to [facility] Urine collected non-numeric Medical, for unspecified results) PC) duration Ketones Negative Normal (applies [facility] (St [Presence] in to non-numeric [facility] Blood by Tablet results) Medical, PC) Bilirubin Negative Normal (applies [facility] (St [Presence] in to non-numeric [facility] Peritoneal fluid results) Medical, PC) Occult Blood Negative Normal (applies [facility] (St to non-numeric [facility] results) Medical, PC) Urobilinogen,Nani 1.0 mg/dL Normal (applies [facility] (St i-Qn to non-numeric [facility] results) Medical, PC) Nitrite, Urine Negative Normal (applies [facility] (S t to non-numeric [facility] results) Medical, ) Microscopic See below: Normal (applies [facility] (St Examination to non-numeric [facility] results) Medical, ) ID Date Data Source [id number] 10/07/2019 12:00:00 AM EDT [facility] ([facility], ) Name Value Range Interpretation Code Description Data Supporting Source(s) Document(s ) PDF . Normal (applies to [facility] (St non-numeric [facility] results) Medical, ) PDF Not applicable Normal (applies to [facility] (St non-numeric [facility] results) Medical, ) ID Date Data Source [id number] 10/07/2019 12:00:00 AM EDT [facility] ([facility], ) Name Value Range Interpretation Description Data Sup porting Code Source(s) Document(s ) Glucose 129 mg/dL Above high normal [facility] (St [Mass/volume] [facility] in Urine Medical, ) collected for unspecified duration Urea nitrogen 39 mg/dL Above high normal [facility] ( St [Mass/volume] [facility] in Serum or Medical, ) Plasma Creatinine 2.54 Above high normal [facility] (St [Interpretation mg/dL [facility] ] in Urine Medical, ) eGFR If 28 Below low normal [facility] (St NonAfricn Am mL/min/1. [facility] 73 [facility], ) eGFR If Africn 32 Below low normal [facility] ( St Am mL/min/1. [facility] 73 [facility], ) BUN/Creatinine 15 Normal (applies [facility] (S t Ratio to non-numeric [facility] results) Medical, ) Sodium 145 Above high normal [facility] (St [Moles/volume] mmol/L [facility] in Serum or Medical, ) Plasma Potassium 4.1 Normal (applies [facility] (St [Mass/volume] mmol/L to non-numeric [facility] in Blood results) Medical, ) Carbon dioxide, 20 mmol/L Normal (applies [facility] ( St total to non-numeric [facility] [Moles/volume] results) Medical, ) in Serum or Plasma Chloride 111 Above high normal [facility] (St [Moles/volume] mmol/L [facility] in Serum or Medical, ) Plasma Calcium 8.2 mg/dL Below low normal [facility] (St [Moles/volume] [facility] in Urine [facility], ) collected for unspecified duration ID Date Data Source [id number] 10/07/2019 12:00:00 AM EDT [facility] ([facility], ) Name Value Range Interpretation Code Description Data Kimberly rce(s) Supporting Document(s ) ID Date Data Source [id number] 10/07/2019 12:00:00 AM EDT [facility] ([facility], ) Name Value Range Interpretation Code Description Data Supporting Source(s) Document(s ) PDF . Normal (applies to [facility] (St non-numeric [facility] results) [facility], ) PDF Not applicable Normal (applies to [facility] (St non-numeric [facility] results) [facility], ) ID Date Data Source [id number] 10/07/2019 12:00:00 AM EDT [facility] ([facility], ) Name Value Range Interpretation Code Description Data Supporting Source(s) Document(s ) Albumin, 2994.7 Normal (applies to [facility] (St Urine ug/mL non-numeric [facility] results) [facility], ) Creatinine 145.9 Normal (applies to [facility] (St , Urine mg/dL non-numeric [facility] results) [facility], ) Alb/Creat 2053 mg/g Above high normal [facility] (St Ratio creat [facility], ) ID Date Data Source [id number] 10/07/2019 12:00:00 AM EDT [facility] ([facility], ) Name Value Range Interpretation Description Data Sup porting Code Source(s) Document(s ) WBC 0-5 Normal (applies [facility] (St to non-numeric [facility] results) Medical, ) RBC 0-2 Normal (applies [facility] (St to non-numeric [facility] results) Medical, ) Casts [#/area] Present Abnormal (applies [facility] (St in Urine to non-numeric [facility] sediment by results) [facility], ) Automated count Epithelial 0-10 Normal (applies [facility] (St Cells (non to non-numeric [facility] renal) results) [facility], ) Cast Type Hyaline Normal (applies [facility] (St casts to non-numeric [facility] results) Medical, ) Bacteria Few Normal (applies [facility] (St [Presence] in to non-numeric [facility] Prostatic results) Medical, PC) fluid by Light microscopy Mucus Threads Present Normal (applies [facility] (St to non-numeric [facility] results) Medical, PC) ID Date Data Source [id number] 10/07/2019 12:00:00 AM EDT [facility] ([facility]) Name Value Range Interpretation Description Data Sup porting Code Source(s) Document(s ) Specific gravity 1.022 Normal (applies [facility] (St of Pericardial to non-numeric [facility] fluid by results) Medical, Refractometry PC) pH of Lower 5.0 Normal (applies [facility] (St respiratory to non-numeric [facility] specimen results) Medical, PC) Urine-Color Yellow Normal (applies [facility] (St to non-numeric [facility] results) Medical, PC) Appearance of Clear Normal (applies [facility] (St Abdomen to non-numeric [facility] results) Medical, PC) WBC Esterase Negative Normal (applies [facility] (St to non-numeric [facility] results) Medical, PC) Protein Abnormal [facility] (St [Mass/volume] in (applies to [facility] Lower non-numeric Medical, respiratory results) PC) specimen Glucose Abnormal [facility] (St [Mass/volume] in (applies to [facility] Urine collected non-numeric Medical, for unspecified results) PC) duration Ketones Negative Normal (applies [facility] (St [Presence] in to non-numeric [facility] Blood by Tablet results) Medical, PC) Occult Blood Negative Normal (applies [facility] (St to non-numeric [facility] results) Medical, PC) Bilirubin Negative Normal (applies [facility] (St [Presence] in to non-numeric [facility] Peritoneal fluid results) Medical, PC) Urobilinogen,Nani 1.0 mg/dL Normal (applies [facility] (St i-Qn to non-numeric [facility] results) Medical, PC) Microscopic See below: Normal (applies [facility] (St Examination to non-numeric [facility] results) Medical, PC) Nitrite, Urine Negative Normal (applies [facility] (S t to non-numeric [facility] results) Medical, PC) ID Date Data Source [id number] 10/07/2019 12:00:00 AM EDT [facility] ([facility]) Name Value Range Interpretation Code Description Data Kimberly rce(s) Supporting Document(s ) Normetane 256.1 Above high normal [facility] (St phrine, pg/mL [facility], ) Metanephr 144.2 Above high normal [facility] (St ine, Pl pg/mL [facility], ) ID Date Data Source [id number] 10/07/2019 12:00:00 AM EDT [facility] ([facility]) Name Value Range Interpretation Description Data Sup porting Code Source(s) Document(s ) Glucose 129 mg/dL Above high normal [facility] (St [Mass/volume] [facility] in Urine Medical, ) collected for unspecified duration Urea nitrogen 39 mg/dL Above high normal [facility] ( St [Mass/volume] [facility] in Serum or Medical, ) Plasma Creatinine 2.54 Above high normal [facility] (St [Interpretation mg/dL [facility] ] in Urine Medical, ) eGFR If 28 Below low normal [facility] (St NonAfricn Am mL/min/1. [facility] 73 [facility], ) eGFR If Africn 32 Below low normal [facility] ( St Am mL/min/1. [facility] 73 [facility], ) Sodium 145 Above high normal [facility] (St [Moles/volume] mmol/L [facility] in Serum or Medical, ) Plasma BUN/Creatinine 15 Normal (applies [facility] (S t Ratio to non-numeric [facility] results) Medical, ) Potassium 4.1 Normal (applies [facility] (St [Mass/volume] mmol/L to non-numeric [facility] in Blood results) Medical, ) Chloride 111 Above high normal [facility] (St [Moles/volume] mmol/L [facility] in Serum or Medical, ) Plasma Carbon dioxide, 20 mmol/L Normal (applies [facility] ( St total to non-numeric [facility] [Moles/volume] results) Medical, ) in Serum or Plasma Calcium 8.2 mg/dL Below low normal [facility] (St [Moles/volume] [facility] in Urine Medical, ) collected for unspecified duration ID Date Data Source [id number] 10/07/2019 12:00:00 AM EDT [facility] ([facility]) Name Value Range Interpretation Code Description Data Kimberly rce(s) Supporting Document(s ) ID Date Data Source [id number] 10/07/2019 12:00:00 AM EDT [facility] ([facility], ) Name Value Range Interpretation Code Description Data Supporting Source(s) Document(s ) PDF . Normal (applies to [facility] (St non-numeric [facility] results) Medical, ) PDF Not applicable Normal (applies to [facility] (St non-numeric [facility] results) Medical, ) ID Date Data Source [id number] 10/07/2019 12:00:00 AM EDT [facility] ([facility], ) Name Value Range Interpretation Code Description Data Supporting Source(s) Document(s ) Creatinine 145.9 Normal (applies to [facility] (St , Urine mg/dL non-numeric [facility] results) Medical, ) Albumin, 2994.7 Normal (applies to [facility] (St Urine ug/mL non-numeric [facility] results) Medical, ) Alb/Creat 2053 mg/g Above high normal [facility] (St Ratio creat [facility]ony[facility], ) ID Date Data Source [id number] 10/07/2019 12:00:00 AM EDT [facility] ([facility], ) Name Value Range Interpretation Description Data Sup porting Code Source(s) Document(s ) WBC 0-5 Normal (applies [facility] (St to non-numeric [facility] results) Medical, ) RBC 0-2 Normal (applies [facility] (St to non-numeric [facility] results) Medical, ) Epithelial 0-10 Normal (applies [facility] (St Cells (non to non-numeric [facility] renal) results) Medical, ) Casts [#/area] Present Abnormal (applies [facility] (St in Urine to non-numeric [facility] sediment by results) Medical, ) Automated count Cast Type Hyaline Normal (applies [facility] (St casts to non-numeric [facility] results) Medical, ) Mucus Threads Present Normal (applies [facility] (St to non-numeric [facility] results) Medical, ) Bacteria Few Normal (applies [facility] (St [Presence] in to non-numeric [facility] Prostatic results) Medical, ) fluid by Light microscopy ID Date Data Source [id number] 10/07/2019 12:00:00 AM EDT [facility] ([facility], ) Name Value Range Interpretation Description Data Sup porting Code Source(s) Document(s ) PDF Image . Normal (applies to [facility] (St non-numeric [facility] results) Medical, ) PDF Image . Normal (applies to [facility] (St non-numeric [facility] results) Medical, ) PDF Image . Normal (applies to [facility] (St non-numeric [facility] results) Medical, ) PDF . Normal (applies to [facility] (St non-numeric [facility] results) Medical, ) PDF Not applicable Normal (applies to [facility] (St non-numeric [facility] results) Medical, ) PDF Image . Normal (applies to [facility] (St non-numeric [facility] results) Medical, ) PDF Image . Normal (applies to [facility] (St non-numeric [facility]'s results) [facility], ) PDF Image . Normal (applies to [facility] (St non-numeric [facility]'s results) [facility], ) PDF Image . Normal (applies to [facility] (St non-numeric [facility]ony's results) [facility], ) PDF Image . Normal (applies to [facility] (St non-numeric [facility]'s results) [facility], ) PDF Image . Normal (applies to [facility] (St non-numeric [facility]'s results) [facility], ) ID Date Data Source [id number] 10/07/2019 12:00:00 AM EDT [facility] ([facility], ) Name Value Range Interpretation Description Data Sup porting Code Source(s) Document(s ) Glucose 229 mg/dL Above high normal [facility] (St [Mass/volume] [facility] in Urine Medical, ) collected for unspecified duration Creatinine 1.04 Normal (applies [facility] (St [Interpretation mg/dL to non-numeric Dony's ] in Urine results) [facility], ) Urea nitrogen 19 mg/dL Normal (applies [facility] (St [Mass/volume] to non-numeric Dony's in Serum or results) [facility], ) Plasma eGFR If Africn 94 Normal (applies [facility] (S t Am mL/min/1. to non-numeric Dony's 73 results) [facility], ) eGFR If 82 Normal (applies [facility] (St NonAfricn Am mL/min/1. to non-numeric [facility]'s 73 results) Medical, ) Sodium 141 Normal (applies [facility] (St [Moles/volume] mmol/L to non-numeric [facility] in Serum or results) Medical, ) Plasma BUN/Creatinine 18 Normal (applies [facility] (S t Ratio to non-numeric Dony's results) [facility], ) Potassium 4.6 Normal (applies [facility] (St [Mass/volume] mmol/L to non-numeric [facility]ony's in Blood results) [facility], ) Chloride 104 Normal (applies [facility] (St [Moles/volume] mmol/L to non-numeric [facility] in Serum or results) Medical, ) Plasma Carbon dioxide, 24 mmol/L Normal (applies [facility] ( St total to non-numeric Dony's [Moles/volume] results) [facility], ) in Serum or Plasma Calcium 9.1 mg/dL Normal (applies [facility] (St [Moles/volume] to non-numeric [facility]ony's in Urine results) [facility], ) collected for unspecified duration Urea nitrogen 29 mg/dL Above high normal [facility] ( St [Mass/volume] [facility] in Serum or [facility], ) Plasma Glucose 216 mg/dL Above high normal [facility] (St [Mass/volume] [facility] in Urine [facility], ) collected for unspecified duration Creatinine 2.10 Above high normal [facility] (St [Interpretation mg/dL Dony's ] in Urine [facility], ) eGFR If 35 Below low normal [facility] (St NonAfricn Am mL/min/1. s 73 [facility], ) BUN/Creatinine 14 Normal (applies [facility] (S t Ratio to non-numeric Dony's results) [facility], ) eGFR If Africn 40 Below low normal [facility] ( St Am mL/min/1. Donys 73 [facility], ) Potassium 3.9 Normal (applies [facility] (St [Mass/volume] mmol/L to non-numeric [facility]ony's in Blood results) [facility], ) Sodium 144 Normal (applies [facility] (St [Moles/volume] mmol/L to non-numeric [facility] in Serum or results) [facility], ) Plasma Chloride 109 Above high normal [facility] (St [Moles/volume] mmol/L [facility] in Serum or [facility], ) Plasma Calcium 8.7 mg/dL Normal (applies [facility] (St [Moles/volume] to non-numeric [facility] in Urine results) [facility], ) collected for unspecified duration Carbon dioxide, 23 mmol/L Normal (applies [facility] ( St total to non-numeric Dnoy's [Moles/volume] results) [facility], ) in Serum or Plasma Urea nitrogen 39 mg/dL Above high normal [facility] ( St [Mass/volume] [facility] in Serum or [facility], ) Plasma Glucose 129 mg/dL Above high normal [facility] (St [Mass/volume] [facility] in Urine [facility], ) collected for unspecified duration Creatinine 2.54 Above high normal [facility] (St [Interpretation mg/dL Dony's ] in Urine [facility], ) eGFR If 28 Below low normal [facility] (St NonAfricn Am mL/min/1. Dony's 73 [facility], ) eGFR If Africn 32 Below low normal [facility] ( St Am mL/min/1. Dony 73 [facility], ) BUN/Creatinine 15 Normal (applies [facility] (S t Ratio to non-numeric Dony's results) [facility], ) Potassium 4.1 Normal (applies [facility] (St [Mass/volume] mmol/L to non-numeric [facility]ony[facility] in Blood results) [facility], ) Sodium 145 Above high normal [facility] (St [Moles/volume] mmol/L [facility] in Serum or [facility], ) Plasma Carbon dioxide, 20 mmol/L Normal (applies [facility] ( St total to non-numeric [facility]'s [Moles/volume] results) [facility], ) in Serum or Plasma Chloride 111 Above high normal [facility] (St [Moles/volume] mmol/L [facility] in Serum or [facility], ) Plasma Calcium 8.2 mg/dL Below low normal [facility] (St [Moles/volume] [facility] in Urine [facility], ) collected for unspecified duration Urea nitrogen 25 mg/dL Above high normal [facility] ( St [Mass/volume] [facility] in Serum or [facility], ) Plasma Glucose 321 mg/dL Above high normal [facility] (St [Mass/volume] [facility]ony[facility] in Urine [facility], ) collected for unspecified duration Creatinine 0.99 Normal (applies [facility] (St [Interpretation mg/dL to non-numeric Dony's ] in Urine results) [facility], ) eGFR If 87 Normal (applies [facility] (St NonAfricn Am mL/min/1. to non-numeric [facility]ony's 73 results) [facility], ) eGFR If Africn 101 Normal (applies [facility] (S t Am mL/min/1. to non-numeric Dony's 73 results) [facility], ) BUN/Creatinine 25 Above high normal [facility] (St Ratio Dony's [facility], ) Sodium 138 Normal (applies [facility] (St [Moles/volume] mmol/L to non-numeric [facility] in Serum or results) [facility], ) Plasma Potassium 5.6 Above high normal [facility] (St [Mass/volume] mmol/L [facility] in Blood [facility], ) Chloride 103 Normal (applies [facility] (St [Moles/volume] mmol/L to non-numeric [facility]ony's in Serum or results) [facility], ) Plasma Carbon dioxide, 21 mmol/L Normal (applies [facility] ( St total to non-numeric [facility]ony's [Moles/volume] results) [facility]) in Serum or Plasma Glucose 154 mg/dL Above high normal [facility] (St [Mass/volume] [facility] in Urine [facility], ) collected for unspecified duration Calcium 9.8 mg/dL Normal (applies [facility] (St [Moles/volume] to non-numeric [facility] in Urine results) [facility], ) collected for unspecified duration Creatinine 1.94 Above high normal [facility] (St [Interpretation mg/dL Dony's ] in Urine [facility], ) Urea nitrogen 41 mg/dL Above high normal [facility] ( St [Mass/volume] [facility] in Serum or [facility], ) Plasma eGFR If 39 Below low normal [facility] (St NonAfricn Am mL/min/1. Dony's 73 [facility], ) BUN/Creatinine 21 Above high normal [facility] (St Ratio Dony's [facility], ) eGFR If Africn 45 Below low normal [facility] ( St Am mL/min/1. Dony's 73 [facility], ) Potassium 5.5 Above high normal [facility] (St [Mass/volume] mmol/L [facility] in Blood [facility], ) Sodium 141 Normal (applies [facility] (St [Moles/volume] mmol/L to non-numeric [facility] in Serum or results) [facility], ) Plasma Chloride 105 Normal (applies [facility] (St [Moles/volume] mmol/L to non-numeric [facility] in Serum or results) [facility], ) Plasma Carbon dioxide, 21 mmol/L Normal (applies [facility] ( St total to non-numeric [facility]'s [Moles/volume] results) Medical, ) in Serum or Plasma Calcium 9.3 mg/dL Normal (applies [facility] (St [Moles/volume] to non-numeric [facility] in Urine results) [facility], ) collected for unspecified duration Glucose 88 mg/dL Normal (applies [facility] (St [Mass/volume] to non-numeric [facility]'s in Urine results) [facility], ) collected for unspecified duration Urea nitrogen 33 mg/dL Above high normal [facility] ( St [Mass/volume] [facility]ony[facility] in Serum or [facility], ) Plasma Creatinine 1.45 Above high normal [facility] (St [Interpretation mg/dL Dony's ] in Urine [facility], ) eGFR If 55 Below low normal [facility] (St NonAfricn Am mL/min/1. Dony's 73 [facility], ) eGFR If Africn 63 Normal (applies [facility] (S t Am mL/min/1. to non-numeric Dony's 73 results) [facility], ) Sodium 143 Normal (applies [facility] (St [Moles/volume] mmol/L to non-numeric [facility] in Serum or results) [facility], ) Plasma BUN/Creatinine 23 Above high normal [facility] (St Ratio Dony's [facility], ) Chloride 106 Normal (applies [facility] (St [Moles/volume] mmol/L to non-numeric [facility] in Serum or results) [facility], ) Plasma Potassium 5.4 Above high normal [facility] (St [Mass/volume] mmol/L [facility] in Blood [facility], ) Carbon dioxide, 20 mmol/L Normal (applies [facility] ( St total to non-numeric [facility]ony's [Moles/volume] results) [facility], ) in Serum or Plasma Calcium 9.4 mg/dL Normal (applies [facility] (St [Moles/volume] to non-numeric [facility] in Urine results) [facility], ) collected for unspecified duration Glucose 238 mg/dL Above high normal [facility] (St [Mass/volume] [facility]ony[facility] in Urine [facility], ) collected for unspecified duration Urea nitrogen 21 mg/dL Normal (applies [facility] (St [Mass/volume] to non-numeric [facility]'s in Serum or results) [facility], ) Plasma eGFR If 74 Normal (applies [facility] (St NonAfricn Am mL/min/1. to non-numeric Dony's 73 results) [facility] ) Creatinine 1.13 Normal (applies [facility] (St [Interpretation mg/dL to non-numeric Dony's ] in Urine results) Medical, ) eGFR If Africn 85 Normal (applies [facility] (S t Am mL/min/1. to non-numeric Dony's 73 results) [facility], ) BUN/Creatinine 19 Normal (applies [facility] (S t Ratio to non-numeric [facility]'s results) Medical, ) Sodium 140 Normal (applies [facility] (St [Moles/volume] mmol/L to non-numeric [facility] in Serum or results) Medical, ) Plasma Chloride 103 Normal (applies [facility] (St [Moles/volume] mmol/L to non-numeric [facility]'s in Serum or results) [facility], ) Plasma Potassium 4.5 Normal (applies [facility] (St [Mass/volume] mmol/L to non-numeric [facility]ony's in Blood results) [facility], ) Carbon dioxide, 19 mmol/L Below low normal [facility] (St total Dony's [Moles/volume] [facility], ) in Serum or Plasma Calcium 9.8 mg/dL Normal (applies [facility] (St [Moles/volume] to non-numeric [facility]ony's in Urine results) [facility], ) collected for unspecified duration Urea nitrogen 28 mg/dL Above high normal [facility] ( St [Mass/volume] Dony's in Serum or [facility], ) Plasma Glucose 320 mg/dL Above high normal [facility] (St [Mass/volume] [facility]ony's in Urine [facility], ) collected for unspecified duration Creatinine 1.40 Above high normal [facility] (St [Interpretation mg/dL Dony's ] in Urine [facility], ) eGFR If 57 Below low normal [facility] (St NonAfricn Am mL/min/1. Dony's 73 [facility], ) eGFR If Africn 65 Normal (applies [facility] (S t Am mL/min/1. to non-numeric Dony's 73 results) [facility], ) BUN/Creatinine 20 Normal (applies [facility] (S t Ratio to non-numeric Dnoy's results) [facility], ) Sodium 141 Normal (applies [facility] (St [Moles/volume] mmol/L to non-numeric [facility] in Serum or results) [facility], ) Plasma Potassium 4.3 Normal (applies [facility] (St [Mass/volume] mmol/L to non-numeric [facility] in Blood results) Medical, ) Chloride 103 Normal (applies [facility] (St [Moles/volume] mmol/L to non-numeric [facility] in Serum or results) Medical, ) Plasma Calcium 8.9 mg/dL Normal (applies [facility] (St [Moles/volume] to non-numeric [facility] in Urine results) Medical, ) collected for unspecified duration Carbon dioxide, 22 mmol/L Normal (applies [facility] ( St total to non-numeric [facility]'s [Moles/volume] results) Medical, ) in Serum or Plasma ID Date Data Source [id number] 10/07/2019 12:00:00 AM EDT [facility] ([facility], ) Name Value Range Interpretation Code Description Data Kimberly rce(s) Supporting Document(s ) ID Date Data Source [id number] 10/07/2019 12:00:00 AM EDT [facility] ([facility], ) Name Value Range Interpretation Description Data Sup porting Code Source(s) Document(s ) PDF Image . Normal (applies to [facility] (St non-numeric [facility] results) Medical, ) PDF Image . Normal (applies to [facility] (St non-numeric [facility] results) Medical, ) PDF . Normal (applies to [facility] (St non-numeric [facility] results) Medical, ) PDF Image . Normal (applies to [facility] (St non-numeric [facility]'s results) Medical, ) PDF Image . Normal (applies to [facility] (St non-numeric [facility] results) Medical, ) PDF Not applicable Normal (applies to [facility] (St non-numeric [facility]'s results) Medical, ) PDF Image . Normal (applies to [facility] (St non-numeric [facility]'s results) Medical, ) PDF Image . Normal (applies to [facility] (St non-numeric [facility]'s results) Medical, ) PDF Image . Normal (applies to [facility] (St non-numeric [facility]ony's results) Medical, ) PDF Image . Normal (applies to [facility] (St non-numeric [facility]'s results) Medical, ) PDF Image . Normal (applies to [facility] (St non-numeric [facility]'s results) Medical, ) ID Date Data Source [id number] 10/07/2019 12:00:00 AM EDT [facility] ([facility], ) Name Value Range Interpretation Code Description Data Supporting Source(s) Document(s ) Creatinine 145.9 Normal (applies to [facility] (St , Urine mg/dL non-numeric [facility]'s results) Medical, ) Alb/Creat 2053 mg/g Above high normal [facility] (St Ratio creat [facility], ) Albumin, 2994.7 Normal (applies to [facility] (St Urine ug/mL non-numeric [facility] results) Medical, ) ID Date Data Source [id number] 10/07/2019 12:00:00 AM EDT [facility] ([facility], ) Name Value Range Interpretation Description Data Sup porting Code Source(s) Document(s ) WBC 0-5 Normal (applies [facility] (St to non-numeric [facility] results) Medical, ) RBC 0-2 Normal (applies [facility] (St to non-numeric [facility] results) Medical, ) Epithelial 0-10 Normal (applies [facility] (St Cells (non to non-numeric [facility] renal) results) Medical, ) Casts [#/area] Present Abnormal (applies [facility] (St in Urine to non-numeric [facility]ony's sediment by results) Medical, ) Automated count Cast Type Hyaline Normal (applies [facility] (St casts to non-numeric [facility] results) Medical, ) Mucus Threads Present Normal (applies [facility] (St to non-numeric [facility] results) Medical, ) Bacteria Few Normal (applies [facility] (St [Presence] in to non-numeric [facility]'s Prostatic results) Medical, ) fluid by Light microscopy WBC 0-5 Normal (applies [facility] (St to non-numeric [facility]ony's results) Medical, ) RBC 0-2 Normal (applies [facility] (St to non-numeric [facility]ony's results) Medical, ) Epithelial 0-10 Normal (applies [facility] (St Cells (non to non-numeric [facility]'s renal) results) Medical, ) Casts [#/area] Present Abnormal (applies [facility] (St in Urine to non-numeric [facility]ony's sediment by results) Medical, ) Automated count Cast Type Hyaline Normal (applies [facility] (St casts to non-numeric [facility]ony's results) Medical, ) Mucus Threads Present Normal (applies [facility] (St to non-numeric [facility]ony's results) Medical, PC) Bacteria Few Normal (applies [facility] (St [Presence] in to non-numeric [facility]'s Prostatic results) Medical, PC) fluid by Light microscopy ID Date Data Source [id number] 10/07/2019 12:00:00 AM EDT [facility] ([facility]) Name Value Range Interpretation Description Data Sup porting Code Source(s) Document(s ) pH of Lower 5.0 Normal (applies [facility] (St respiratory to non-numeric [facility]'s specimen results) Medical, PC) Specific gravity 1.022 Normal (applies [facility] (St of Pericardial to non-numeric [facility] fluid by results) Medical, Refractometry PC) Appearance of Clear Normal (applies [facility] (St Abdomen to non-numeric [facility] results) Medical, PC) Urine-Color Yellow Normal (applies [facility] (St to non-numeric [facility] results) Medical, PC) Protein Abnormal [facility] (St [Mass/volume] in (applies to D[facility]oy's Lower non-numeric Medical, respiratory results) PC) specimen WBC Esterase Negative Normal (applies [facility] (St to non-numeric [facility] results) Medical, PC) Glucose Abnormal [facility] (St [Mass/volume] in (applies to [facility]ony[facility] Urine collected non-numeric Medical, for unspecified results) PC) duration Occult Blood Negative Normal (applies [facility] (St to non-numeric [facility]'s results) Medical, PC) Ketones Negative Normal (applies [facility] (St [Presence] in to non-numeric Dony's Blood by Tablet results) Medical, PC) Bilirubin Negative Normal (applies [facility] (St [Presence] in to non-numeric [facility]'s Peritoneal fluid results) Medical, PC) Urobilinogen,Nani 1.0 mg/dL Normal (applies [facility] (St i-Qn to non-numeric [facility] results) Medical, PC) Nitrite, Urine Negative Normal (applies [facility] (S t to non-numeric [facility]ony's results) Medical, PC) Microscopic See below: Normal (applies [facility] (St Examination to non-numeric [facility] results) Medical, PC) Specific gravity 1.021 Normal (applies [facility] (St of Pericardial to non-numeric Dony's fluid by results) Medical, Refractometry [facility]) pH of Lower 5.0 Normal (applies [facility] (St respiratory to non-numeric Dony's specimen results) [facility], ) Urine-Color Yellow Normal (applies [facility] (St to non-numeric Dony's results) [facility], ) Appearance of Clear Normal (applies [facility] (St Abdomen to non-numeric Dony's results) [facility], ) WBC Esterase Negative Normal (applies [facility] (St to non-numeric Dony's results) [facility], ) Protein Abnormal [facility] (St [Mass/volume] in (applies to [facility]'s Lower non-numeric Medical, respiratory results) ) specimen Glucose Abnormal [facility] (St [Mass/volume] in (applies to [facility] Urine collected non-numeric Medical, for unspecified results) ) duration Ketones Negative Normal (applies [facility] (St [Presence] in to non-numeric Dony's Blood by Tablet results) [facility], ) Bilirubin Negative Normal (applies [facility] (St [Presence] in to non-numeric Dony's Peritoneal fluid results) [facility], ) Occult Blood Negative Normal (applies [facility] (St to non-numeric Dony's results) [facility], ) Urobilinogen,Nani 0.2 EU/dL Normal (applies [facility] (St i-Qn to non-numeric Dony's results) [facility], ) Nitrite, Urine Negative Normal (applies [facility] (S t to non-numeric Dony's results) [facility], ) Microscopic See below: Normal (applies [facility] (St Examination to non-numeric Dony's results) [facility], ) ID Date Data Source [id number] 09/23/2019 12:00:00 AM EDT [facility] ([facility], ) Name Value Range Interpretation Code Description Data Kimberly rce(s) Supporting Document(s ) ID Date Data Source [id number] 09/23/2019 12:00:00 AM EDT [facility] ([facility], ) Name Value Range Interpretation Code Description Data Kimberly rce(s) Supporting Document(s ) PDF Image . Normal (applies to [facility] (St non-numeric results) [facility] dical, ) ID Date Data Source [id number] 09/23/2019 12:00:00 AM EDT [facility] ([facility], ) Name Value Range Interpretation Description Data Sup porting Code Source(s) Document(s ) Osmolality of 387 Normal (applies to [facility] (St Urine mOsmol/kg non-numeric [facility]ony's results) [facility], ) ID Date Data Source [id number] 09/23/2019 12:00:00 AM EDT [facility] (St Roc[facility], ) Name Value Range Interpretation Description Data Sup porting Code Source(s) Document(s ) Osmolality of 308 Above high normal [facility] ( St Serum or mOsmol/kg Dony's Plasma [facility], ) ID Date Data Source [id number] 09/23/2019 12:00:00 AM EDT [facility] ([facility], ) Name Value Range Interpretation Description Data Sup porting Code Source(s) Document(s ) Glucose 216 mg/dL Above high normal [facility] (St [Mass/volume] Dony's in Urine [facility], ) collected for unspecified duration Urea nitrogen 29 mg/dL Above high normal [facility] ( St [Mass/volume] Dony's in Serum or [facility], ) Plasma Creatinine 2.10 Above high normal [facility] (St [Interpretation mg/dL Dony's ] in Urine [facility], ) eGFR If 35 Below low normal [facility] (St NonAfricn Am mL/min/1. Dony's 73 [facility], ) eGFR If Africn 40 Below low normal MED[facility] ( St Am mL/min/1. [facility] 73 [facility], ) Sodium 144 Normal (applies [facility] (St [Moles/volume] mmol/L to non-numeric [facility] in Serum or results) [facility], ) Plasma BUN/Creatinine 14 Normal (applies [facility] (S t Ratio to non-numeric [facility] results) [facility], ) Potassium 3.9 Normal (applies [facility] (St [Mass/volume] mmol/L to non-numeric [facility] in Blood results) [facility], ) Chloride 109 Above high normal [facility] (St [Moles/volume] mmol/L [facility] in Serum or Medical, ) Plasma Calcium 8.7 mg/dL Normal (applies [facility] (St [Moles/volume] to non-numeric [facility] in Urine results) [facility], ) collected for unspecified duration Carbon dioxide, 23 mmol/L Normal (applies [facility]GEN ( St total to non-numeric [facility] [Moles/volume] results) [facility], ) in Serum or Plasma ID Date Data Source [id number] 09/23/2019 12:00:00 AM EDT [facility] ([facility] Name Value Range Interpretation Code Description Data Kimberly rce(s) Supporting Document(s ) ID Date Data Source [id number] 09/23/2019 12:00:00 AM EDT [facility] ([facility] Name Value Range Interpretation Code Description Data Kimberly rce(s) Supporting Document(s ) PDF Image . Normal (applies to [facility] (St non-numeric results) [facility], ) ID Date Data Source [id number] 09/23/2019 12:00:00 AM EDT [facility] ([facility] Name Value Range Interpretation Description Data Sup porting Code Source(s) Document(s ) Osmolality of 387 Normal (applies to [facility] (St Urine mOsmol/kg non-numeric [facility] results) [facility], ) ID Date Data Source [id number] 09/23/2019 12:00:00 AM EDT [facility] ([facility], ) Name Value Range Interpretation Description Data Sup porting Code Source(s) Document(s ) Osmolality of 308 Above high normal [facility] ( St Serum or mOsmol/kg [facility] Plasma [facility], ) ID Date Data Source [id number] 09/23/2019 12:00:00 AM EDT [facility] ([facility] Name Value Range Interpretation Description Data Sup porting Code Source(s) Document(s ) Glucose 216 mg/dL Above high normal [facility] (St [Mass/volume] [facility] Urine [facility], ) collected for unspecified duration Creatinine 2.10 Above high normal [facility] (St [Interpretation mg/dL [facility] ] in Urine [facility], ) Urea nitrogen 29 mg/dL Above high normal [facility] ( St [Mass/volume] [facility] in Serum or Medical, ) Plasma eGFR If 35 Below low normal [facility] (St NonAfricn Am mL/min/1. [facility] 73 [facility], ) eGFR If Africn 40 Below low normal [facility] ( St Am mL/min/1. [facility] 73 [facility], ) BUN/Creatinine 14 Normal (applies [facility] (S t Ratio to non-numeric [facility] results) [facility], ) Sodium 144 Normal (applies [facility] (St [Moles/volume] mmol/L to non-numeric [facility] in Serum or results) [facility], ) Plasma Potassium 3.9 Normal (applies [facility] (St [Mass/volume] mmol/L to non-numeric [facility] in Blood results) [facility], ) Chloride 109 Above high normal [facility] (St [Moles/volume] mmol/L [facility] in Serum or [facility], [facility]) Plasma Carbon dioxide, 23 mmol/L Normal (applies [facility] ( St total to non-numeric [facility] [Moles/volume] results) Medical, ) in Serum or Plasma Calcium 8.7 mg/dL Normal (applies [facility] (St [Moles/volume] to non-numeric [facility] in Urine results) Medical, ) collected for unspecified duration ID Date Data Source [id number] 09/23/2019 12:00:00 AM EDT [facility] ([facility], ) Name Value Range Interpretation Code Description Data Kimberly rce(s) Supporting Document(s ) ID Date Data Source [id number] 09/23/2019 12:00:00 AM EDT [facility] ([facility], ) Name Value Range Interpretation Code Description Data Kimberly rce(s) Supporting Document(s ) PDF Image . Normal (applies to [facility] (St non-numeric results) [facility], ) ID Date Data Source [id number] 09/23/2019 12:00:00 AM EDT [facility] ([facility], ) Name Value Range Interpretation Description Data Sup porting Code Source(s) Document(s ) Osmolality of 387 Normal (applies to [facility] (St Urine mOsmol/kg non-numeric [facility] results) Medical, ) ID Date Data Source [id number] 09/23/2019 12:00:00 AM EDT [facility] ([facility], ) Name Value Range Interpretation Description Data Sup porting Code Source(s) Document(s ) Osmolality of 308 Above high normal [facility] ( St Serum or mOsmol/kg [facility] Plasma [facility], ) ID Date Data Source [id number] 09/23/2019 12:00:00 AM EDT [facility] ([facility], ) Name Value Range Interpretation Description Data Sup porting Code Source(s) Document(s ) Glucose 216 mg/dL Above high normal [facility] (St [Mass/volume] [facility] in Urine [facility], ) collected for unspecified duration Urea nitrogen 29 mg/dL Above high normal [facility] ( St [Mass/volume] [facility] in Serum or Medical, ) Plasma Creatinine 2.10 Above high normal [facility] (St [Interpretation mg/dL [facility] ] in Urine [facility], ) eGFR If 35 Below low normal [facility] (St NonAfricn Am mL/min/1. [facility] 73 [facility], ) eGFR If Africn 40 Below low normal [facility] ( St Am mL/min/1. [facility] 73 [facility], ) BUN/Creatinine 14 Normal (applies [facility] (S t Ratio to non-numeric [facility] results) [facility], ) Sodium 144 Normal (applies [facility] (St [Moles/volume] mmol/L to non-numeric [facility] in Serum or results) [facility], ) Plasma Chloride 109 Above high normal [facility] (St [Moles/volume] mmol/L [facility] in Serum or Medical, ) Plasma Potassium 3.9 Normal (applies [facility] (St [Mass/volume] mmol/L to non-numeric [facility] in Blood results) [facility], ) Carbon dioxide, 23 mmol/L Normal (applies [facility] ( St total to non-numeric [facility] [Moles/volume] results) [facility], ) in Serum or Plasma Calcium 8.7 mg/dL Normal (applies [facility] (St [Moles/volume] to non-numeric [facility] in Urine results) [facility], ) collected for unspecified duration ID Date Data Source [id number] 09/23/2019 12:00:00 AM EDT [facility] ([facility], ) Name Value Range Interpretation Code Description Data Kimberly rce(s) Supporting Document(s ) ID Date Data Source [id number] 09/23/2019 12:00:00 AM EDT [facility] ([facility], ) Name Value Range Interpretation Code Description Data Kimberly rce(s) Supporting Document(s ) PDF Image . Normal (applies to [facility] (St non-numeric results) [facility], ) ID Date Data Source [id number] 09/23/2019 12:00:00 AM EDT [facility] ([facility], ) Name Value Range Interpretation Description Data Sup porting Code Source(s) Document(s ) Osmolality of 387 Normal (applies to [facility] (St Urine mOsmol/kg non-numeric [facility] results) [facility], ) ID Date Data Source [id number] 09/23/2019 12:00:00 AM EDT [facility] ([facility], ) Name Value Range Interpretation Description Data Sup porting Code Source(s) Document(s ) Osmolality of 308 Above high normal MED[facility] ( St Serum or mOsmol/kg [facility] Plasma [facility], ) ID Date Data Source [id number] 09/23/2019 12:00:00 AM EDT [facility] ([facility], ) Name Value Range Interpretation Description Data Sup porting Code Source(s) Document(s ) Glucose 216 mg/dL Above high normal [facility] (St [Mass/volume] [facility] in Urine [facility], ) collected for unspecified duration Urea nitrogen 29 mg/dL Above high normal [facility] ( St [Mass/volume] [facility] in Serum or [facility], ) Plasma Creatinine 2.10 Above high normal [facility] (St [Interpretation mg/dL [facility] ] in Urine [facility], ) eGFR If 35 Below low normal [facility] (St NonAfricn Am mL/min/1. [facility] 73 [facility], ) eGFR If Africn 40 Below low normal [facility] ( St Am mL/min/1. [facility] 73 [facility], ) BUN/Creatinine 14 Normal (applies [facility] (S t Ratio to non-numeric [facility] results) [facility], ) Sodium 144 Normal (applies [facility] (St [Moles/volume] mmol/L to non-numeric [facility] in Serum or results) [facility], ) Plasma Potassium 3.9 Normal (applies [facility] (St [Mass/volume] mmol/L to non-numeric [facility] in Blood results) [facility], ) Chloride 109 Above high normal [facility] (St [Moles/volume] mmol/L [facility] in Serum or [facility], ) Plasma Calcium 8.7 mg/dL Normal (applies [facility] (St [Moles/volume] to non-numeric [facility] in Urine results) [facility], ) collected for unspecified duration Carbon dioxide, 23 mmol/L Normal (applies [facility] ( St total to non-numeric [facility] [Moles/volume] results) Medical, ) in Serum or Plasma ID Date Data Source [id number] 09/23/2019 12:00:00 AM EDT [facility] ([facility], ) Name Value Range Interpretation Code Description Data Kimberly rce(s) Supporting Document(s ) ID Date Data Source [id number] 09/23/2019 12:00:00 AM EDT [facility] ([facility]) Name Value Range Interpretation Code Description Data Kimberly rce(s) Supporting Document(s ) PDF Image . Normal (applies to [facility] (St non-numeric results) [facility], ) ID Date Data Source [id number] 09/23/2019 12:00:00 AM EDT [facility] ([facility], ) Name Value Range Interpretation Description Data Sup porting Code Source(s) Document(s ) Osmolality of 387 Normal (applies to [facility] (St Urine mOsmol/kg non-numeric [facility] results) [facility], ) ID Date Data Source [id number] 09/23/2019 12:00:00 AM EDT [facility] ([facility], ) Name Value Range Interpretation Description Data Sup porting Code Source(s) Document(s ) Osmolality of 308 Above high normal [facility] ( St Serum or mOsmol/kg [facility] Plasma [facility], ) ID Date Data Source [id number] 09/23/2019 12:00:00 AM EDT [facility] ([facility], ) Name Value Range Interpretation Description Data Sup porting Code Source(s) Document(s ) Glucose 216 mg/dL Above high normal [facility] (St [Mass/volume] [facility] in Urine [facility], ) collected for unspecified duration Creatinine 2.10 Above high normal [facility] (St [Interpretation mg/dL [facility] ] in Urine [facility], ) Urea nitrogen 29 mg/dL Above high normal [facility] ( St [Mass/volume] [facility] in Serum or Medical, ) Plasma eGFR If 35 Below low normal [facility] (St NonAfricn Am mL/min/1. [facility] [address] [place] [address], ) eGFR If Africn 40 Below low normal [facility] ( St Am mL/min/1. [facility] 73 [facility], ) BUN/Creatinine 14 Normal (applies [facility] (S t Ratio to non-numeric [facility] results) [facility]) Sodium 144 Normal (applies [facility] (St [Moles/volume] mmol/L to non-numeric [facility] in Serum or results) [facility], ) Plasma Potassium 3.9 Normal (applies [facility] (St [Mass/volume] mmol/L to non-numeric [facility] in Blood results) Medical, ) Chloride 109 Above high normal [facility] (St [Moles/volume] mmol/L [facility] in Serum or [facility], [facility]) Plasma Carbon dioxide, 23 mmol/L Normal (applies [facility] ( St total to non-numeric [facility] [Moles/volume] results) Medical, ) in Serum or Plasma Calcium 8.7 mg/dL Normal (applies [facility] (St [Moles/volume] to non-numeric [facility] in Urine results) [facility], ) collected for unspecified duration ID Date Data Source [id number] 09/23/2019 12:00:00 AM EDT [facility] ([facility], ) Name Value Range Interpretation Code Description Data Kimberly rce(s) Supporting Document(s ) ID Date Data Source [id number] 09/23/2019 12:00:00 AM EDT [facility] ([facility] Name Value Range Interpretation Code Description Data Kimberly rce(s) Supporting Document(s ) PDF Image . Normal (applies to [facility] (St non-numeric results) [facility], ) ID Date Data Source [id number] 09/23/2019 12:00:00 AM EDT [facility] ([facility] Name Value Range Interpretation Description Data Sup porting Code Source(s) Document(s ) Osmolality of 387 Normal (applies to [facility] (St Urine mOsmol/kg non-numeric [facility] results) Medical, ) ID Date Data Source [id number] 09/23/2019 12:00:00 AM EDT [facility] ([facility]) Name Value Range Interpretation Description Data Sup porting Code Source(s) Document(s ) Osmolality of 308 Above high normal [facility] ( St Serum or mOsmol/kg [facility] Plasma [facility], ) ID Date Data Source [id number] 09/23/2019 12:00:00 AM EDT [facility] ([facility]) Name Value Range Interpretation Description Data Sup porting Code Source(s) Document(s ) Glucose 216 mg/dL Above high normal [facility] (St [Mass/volume] [facility] in Urine [facility], ) collected for unspecified duration Urea nitrogen 29 mg/dL Above high normal [facility] ( St [Mass/volume] [facility] in Serum or Medical, ) Plasma Creatinine 2.10 Above high normal [facility] (St [Interpretation mg/dL [facility] ] in Urine [facility], ) eGFR If 35 Below low normal [facility] (St NonAfricn Am mL/min/1. [facility] [address] [place] [address], ) BUN/Creatinine 14 Normal (applies [facility] (S t Ratio to non-numeric [facility] results) Medical, ) eGFR If Africn 40 Below low normal [facility] ( St Am mL/min/1. [facility] 73 [facility], ) Sodium 144 Normal (applies [facility] (St [Moles/volume] mmol/L to non-numeric [facility] in Serum or results) Medical, ) Plasma Potassium 3.9 Normal (applies [facility] (St [Mass/volume] mmol/L to non-numeric [facility] in Blood results) [facility], ) Carbon dioxide, 23 mmol/L Normal (applies [facility] ( St total to non-numeric [facility] [Moles/volume] results) Medical, ) in Serum or Plasma Chloride 109 Above high normal [facility] (St [Moles/volume] mmol/L [facility] in Serum or Medical, ) Plasma Calcium 8.7 mg/dL Normal (applies [facility] (St [Moles/volume] to non-numeric [facility] in Urine results) Medical, ) collected for unspecified duration ID Date Data Source [id number] 09/23/2019 12:00:00 AM EDT [facility] ([facility] ) Name Value Range Interpretation Code Description Data Kimberly rce(s) Supporting Document(s ) ID Date Data Source [id number] 09/23/2019 12:00:00 AM EDT [facility] ([facility] Name Value Range Interpretation Code Description Data Kimberly rce(s) Supporting Document(s ) PDF Image . Normal (applies to [facility] (St non-numeric results) [facility], ) ID Date Data Source [id number] 09/23/2019 12:00:00 AM EDT [facility] ([facility] ) Name Value Range Interpretation Description Data Sup porting Code Source(s) Document(s ) Urea nitrogen 33 mg/dL Above high normal [facility] ( St [Mass/volume] [facility] in Serum or Medical, ) Plasma Creatinine 1.45 Above high normal [facility] (St [Interpretation mg/dL [facility] ] in Urine [facility], ) eGFR If 55 Below low normal [facility] (St NonAfricn Am mL/min/1. [facility] 73 [facility], ) eGFR If Africn 63 Normal (applies [facility] (S t Am mL/min/1. to non-numeric [facility] 73 results) [facility], ) BUN/Creatinine 23 Above high normal [facility] (St Ratio [facility], ) Sodium 143 Normal (applies [facility] (St [Moles/volume] mmol/L to non-numeric [facility] in Serum or results) [facility], ) Plasma Potassium 5.4 Above high normal [facility] (St [Mass/volume] mmol/L [facility] in Blood [facility], ) Carbon dioxide, 20 mmol/L Normal (applies [facility] ( St total to non-numeric [facility] [Moles/volume] results) [facility], ) in Serum or Plasma Chloride 106 Normal (applies [facility] (St [Moles/volume] mmol/L to non-numeric [facility] in Serum or results) [facility], ) Plasma Calcium 9.4 mg/dL Normal (applies [facility] (St [Moles/volume] to non-numeric [facility] in Urine results) [facility], ) collected for unspecified duration Osmolality of 387 Normal (applies [facility] (St Urine mOsmol/kg to non-numeric [facility] results) [facility], ) ID Date Data Source [id number] 09/23/2019 12:00:00 AM EDT [facility] ([facility], ) Name Value Range Interpretation Description Data Sup porting Code Source(s) Document(s ) Osmolality of 308 Above high normal [facility] ( St Serum or mOsmol/kg [facility] Plasma [facility], ) ID Date Data Source [id number] 09/23/2019 12:00:00 AM EDT [facility] ([facility], ) Name Value Range Interpretation Description Data Sup porting Code Source(s) Document(s ) Glucose 216 mg/dL Above high normal [facility] (St [Mass/volume] [facility] in Urine [facility], ) collected for unspecified duration Urea nitrogen 29 mg/dL Above high normal [facility] ( St [Mass/volume] [facility] in Serum or Medical, ) Plasma Creatinine 2.10 Above high normal [facility] (St [Interpretation mg/dL [facility] ] in Urine [facility], ) eGFR If Africn 40 Below low normal [facility] ( St Am mL/min/1. [facility] 73 [facility], ) eGFR If 35 Below low normal [facility] (St NonAfricn Am mL/min/1. [facility] 73 [facility], ) BUN/Creatinine 14 Normal (applies [facility] (S t Ratio to non-numeric [facility] results) [facility], ) Sodium 144 Normal (applies [facility] (St [Moles/volume] mmol/L to non-numeric [facility] in Serum or results) [facility], ) Plasma Potassium 3.9 Normal (applies [facility] (St [Mass/volume] mmol/L to non-numeric [facility] in Blood results) [facility], ) Chloride 109 Above high normal [facility] (St [Moles/volume] mmol/L [facility] in Serum or Medical, ) Plasma Carbon dioxide, 23 mmol/L Normal (applies [facility] ( St total to non-numeric [facility] [Moles/volume] results) [facility], ) in Serum or Plasma Calcium 8.7 mg/dL Normal (applies [facility] (St [Moles/volume] to non-numeric [facility] in Urine results) [facility], ) collected for unspecified duration ID Date Data Source [id number] 09/23/2019 12:00:00 AM EDT [facility] ([facility] ) Name Value Range Interpretation Code Description Data Kimberly rce(s) Supporting Document(s ) ID Date Data Source [id number] 09/23/2019 12:00:00 AM EDT [facility] ([facility] Name Value Range Interpretation Code Description Data Kimberly rce(s) Supporting Document(s ) PDF Image . Normal (applies to [facility] (St non-numeric results) [facility], ) ID Date Data Source [id number] 09/23/2019 12:00:00 AM EDT [facility] ([facility] ) Name Value Range Interpretation Description Data Sup porting Code Source(s) Document(s ) Osmolality of 387 Normal (applies to [facility] (St Urine mOsmol/kg non-numeric [facility] results) Medical, ) ID Date Data Source [id number] 09/23/2019 12:00:00 AM EDT [facility] ([facility], ) Name Value Range Interpretation Description Data Sup porting Code Source(s) Document(s ) Osmolality of 308 Above high normal [facility] ( St Serum or mOsmol/kg [facility] Plasma [facility], ) ID Date Data Source [id number] 09/23/2019 12:00:00 AM EDT [facility] ([facility], ) Name Value Range Interpretation Description Data Sup porting Code Source(s) Document(s ) Glucose 216 mg/dL Above high normal [facility] (St [Mass/volume] [facility] in Urine [facility], ) collected for unspecified duration Urea nitrogen 29 mg/dL Above high normal [facility] ( St [Mass/volume] [facility] in Serum or [facility], ) Plasma Creatinine 2.10 Above high normal [facility] (St [Interpretation mg/dL [facility] ] in Urine [facility], ) eGFR If Africn 40 Below low normal [facility] ( St Am mL/min/1. [facility] 73 [facility], ) eGFR If 35 Below low normal [facility] (St NonAfricn Am mL/min/1. [facility] 73 [facility], ) Sodium 144 Normal (applies [facility] (St [Moles/volume] mmol/L to non-numeric [facility] in Serum or results) [facility], ) Plasma BUN/Creatinine 14 Normal (applies [facility] (S t Ratio to non-numeric [facility] results) [facility], ) Potassium 3.9 Normal (applies [facility] (St [Mass/volume] mmol/L to non-numeric [facility] in Blood results) [facility], ) Carbon dioxide, 23 mmol/L Normal (applies [facility] ( St total to non-numeric [facility] [Moles/volume] results) [facility], ) in Serum or Plasma Chloride 109 Above high normal [facility] (St [Moles/volume] mmol/L [facility] in Serum or Medical, ) Plasma Calcium 8.7 mg/dL Normal (applies [facility] (St [Moles/volume] to non-numeric [facility] in Urine results) [facility], ) collected for unspecified duration ID Date Data Source [id number] 09/23/2019 12:00:00 AM EDT [facility] ([facility] Name Value Range Interpretation Code Description Data Kimberly rce(s) Supporting Document(s ) ID Date Data Source [id number] 09/23/2019 12:00:00 AM EDT [facility] ([facility] Name Value Range Interpretation Code Description Data Kimberly rce(s) Supporting Document(s ) PDF Image . Normal (applies to [facility] (St non-numeric results) [facility], ) ID Date Data Source [id number] 09/23/2019 12:00:00 AM EDT [facility] ([facility]) Name Value Range Interpretation Description Data Sup porting Code Source(s) Document(s ) Osmolality of 387 Normal (applies to [facility] (St Urine mOsmol/kg non-numeric [facility] results) Medical, ) ID Date Data Source [id number] 09/23/2019 12:00:00 AM EDT [facility] ([facility]) Name Value Range Interpretation Description Data Sup porting Code Source(s) Document(s ) Osmolality of 308 Above high normal [facility] ( St Serum or mOsmol/kg [facility] Plasma [facility], ) ID Date Data Source [id number] 09/23/2019 12:00:00 AM EDT [facility] ([facility]) Name Value Range Interpretation Description Data Sup porting Code Source(s) Document(s ) Glucose 216 mg/dL Above high normal [facility] (St [Mass/volume] [facility] in Urine Medical, ) collected for unspecified duration Urea nitrogen 29 mg/dL Above high normal [facility] ( St [Mass/volume] [facility] in Serum or Medical, ) Plasma Creatinine 2.10 Above high normal [facility] (St [Interpretation mg/dL [facility] ] in Urine [facility] [facility], ) eGFR If Africn 40 Below low normal MED[facility] ( St Am mL/min/1. Dony[facility] 73 [facility], ) eGFR If 35 Below low normal [facility] (St NonAfricn Am mL/min/1. [facility] 73 [facility], ) BUN/Creatinine 14 Normal (applies [facility] (S t Ratio to non-numeric [facility] results) [facility], ) Potassium 3.9 Normal (applies [facility] (St [Mass/volume] mmol/L to non-numeric Dony[facility] in Blood results) Medical, ) Sodium 144 Normal (applies [facility] (St [Moles/volume] mmol/L to non-numeric Dony[facility] in Serum or results) Medical, ) Plasma Chloride 109 Above high normal [facility] (St [Moles/volume] mmol/L Dony[facility] in Serum or Medical, ) Plasma Carbon dioxide, 23 mmol/L Normal (applies [facility] ( St total to non-numeric Dony's [Moles/volume] results) Medical, ) in Serum or Plasma Calcium 8.7 mg/dL Normal (applies [facility] (St [Moles/volume] to non-numeric [facility] in Urine results) [facility], ) collected for unspecified duration ID Date Data Source [id number] 09/23/2019 12:00:00 AM EDT [facility] ([facility], ) Name Value Range Interpretation Code Description Data Kimberly rce(s) Supporting Document(s ) ID Date Data Source [id number] 09/23/2019 12:00:00 AM EDT [facility] ([facility], ) Name Value Range Interpretation Code Description Data Kimberly rce(s) Supporting Document(s ) PDF Image . Normal (applies to [facility] (St non-numeric results) Dony's [facility]) ID Date Data Source [id number] 09/23/2019 12:00:00 AM EDT [facility] ([facility], ) Name Value Range Interpretation Description Data Sup porting Code Source(s) Document(s ) Osmolality of 387 Normal (applies to [facility] (St Urine mOsmol/kg non-numeric [facility] results) [facility], ) ID Date Data Source [id number] 09/23/2019 12:00:00 AM EDT [facility] ([facility], ) Name Value Range Interpretation Description Data Sup porting Code Source(s) Document(s ) Osmolality of 308 Above high normal [facility] ( St Serum or mOsmol/kg Dony's Plasma [facility], ) ID Date Data Source [id number] 09/23/2019 12:00:00 AM EDT [facility] ([facility], ) Name Value Range Interpretation Description Data Sup porting Code Source(s) Document(s ) Glucose 216 mg/dL Above high normal [facility] (St [Mass/volume] [facility]ony[facility] in Urine [facility], ) collected for unspecified duration Urea nitrogen 29 mg/dL Above high normal [facility] ( St [Mass/volume] [facility] in Serum or Medical, ) Plasma Creatinine 2.10 Above high normal [facility] (St [Interpretation mg/dL Dony's ] in Urine [facility], ) eGFR If 35 Below low normal [facility] (St NonAfricn Am mL/min/1. [facility] 73 [facility], ) eGFR If Africn 40 Below low normal [facility] ( St Am mL/min/1. Doy[place]'s 73 [facility], ) BUN/Creatinine 14 Normal (applies [facility] (S t Ratio to non-numeric Dony's results) [facility], ) Sodium 144 Normal (applies [facility] (St [Moles/volume] mmol/L to non-numeric [facility]ony[facility] in Serum or results) [facility], ) Plasma Potassium 3.9 Normal (applies [facility] (St [Mass/volume] mmol/L to non-numeric [facility]ony[facility] in Blood results) [facility], ) Chloride 109 Above high normal [facility] (St [Moles/volume] mmol/L Dony[facility] in Serum or Medical, ) Plasma Carbon dioxide, 23 mmol/L Normal (applies [facility] ( St total to non-numeric Dony's [Moles/volume] results) [facility], ) in Serum or Plasma Calcium 8.7 mg/dL Normal (applies [facility] (St [Moles/volume] to non-numeric [facility] in Urine results) [facility], ) collected for unspecified duration ID Date Data Source [id number] 09/23/2019 12:00:00 AM EDT [facility] ([facility], ) Name Value Range Interpretation Code Description Data Kimberly rce(s) Supporting Document(s ) ID Date Data Source [id number] 09/23/2019 12:00:00 AM EDT [facility] ([facility], ) Name Value Range Interpretation Code Description Data Kimberly rce(s) Supporting Document(s ) PDF Image . Normal (applies to [facility] (St non-numeric results) [facility], ) ID Date Data Source [id number] 09/23/2019 12:00:00 AM EDT [facility] ([facility], ) Name Value Range Interpretation Description Data Sup porting Code Source(s) Document(s ) Osmolality of 387 Normal (applies to [facility] (St Urine mOsmol/kg non-numeric Dony[facility] results) [facility], ) ID Date Data Source [id number] 09/23/2019 12:00:00 AM EDT [facility] ([facility], ) Name Value Range Interpretation Description Data Sup porting Code Source(s) Document(s ) Osmolality of 308 Above high normal [facility] ( St Serum or mOsmol/kg Dony[facility] Plasma [facility], ) ID Date Data Source [id number] 09/23/2019 12:00:00 AM EDT [facility] ([facility], ) Name Value Range Interpretation Description Data Sup porting Code Source(s) Document(s ) Glucose 216 mg/dL Above high normal [facility] (St [Mass/volume] Dony[facility] in Urine [facility], ) collected for unspecified duration Urea nitrogen 29 mg/dL Above high normal [facility] ( St [Mass/volume] Dony[facility] in Serum or [facility], ) Plasma Creatinine 2.10 Above high normal [facility] (St [Interpretation mg/dL Dony's ] in Urine [facility], ) eGFR If Africn 40 Below low normal [facility] ( St Am mL/min/1. Dony's 73 [facility], ) eGFR If 35 Below low normal [facility] (St NonAfricn Am mL/min/1. Dony's 73 [facility], ) BUN/Creatinine 14 Normal (applies [facility] (S t Ratio to non-numeric Dony's results) [facility], ) Potassium 3.9 Normal (applies [facility] (St [Mass/volume] mmol/L to non-numeric Dony's in Blood results) [facility], ) Sodium 144 Normal (applies [facility] (St [Moles/volume] mmol/L to non-numeric Dony[facility] in Serum or results) [facility], ) Plasma Chloride 109 Above high normal [facility] (St [Moles/volume] mmol/L Dony's in Serum or [facility], ) Plasma Calcium 8.7 mg/dL Normal (applies [facility] (St [Moles/volume] to non-numeric [facility]ony[facility] in Urine results) [facility], ) collected for unspecified duration Carbon dioxide, 23 mmol/L Normal (applies [facility] ( St total to non-numeric Dony's [Moles/volume] results) [facility], ) in Serum or Plasma ID Date Data Source [id number] 09/23/2019 12:00:00 AM EDT [facility] ([facility], ) Name Value Range Interpretation Description Data Sup porting Code Source(s) Document(s ) Osmolality of 308 Above high normal [facility] ( St Serum or mOsmol/kg Dony's Plasma [facility], ) ID Date Data Source [id number] 09/23/2019 12:00:00 AM EDT [facility] ([facility], ) Name Value Range Interpretation Description Data Sup porting Code Source(s) Document(s ) Glucose 216 mg/dL Above high normal [facility] (St [Mass/volume] Dony[facility] in Urine [facility], ) collected for unspecified duration Urea nitrogen 29 mg/dL Above high normal [facility] ( St [Mass/volume] [facility]ony[facility] in Serum or Medical, ) Plasma Creatinine 2.10 Above high normal [facility] (St [Interpretation mg/dL Dony's ] in Urine [facility], ) eGFR If 35 Below low normal [facility] (St NonAfricn Am mL/min/1. Dony's 73 [facility], ) BUN/Creatinine 14 Normal (applies [facility] (S t Ratio to non-numeric Dony's results) [facility], ) eGFR If Africn 40 Below low normal [facility] ( St Am mL/min/1. Dony's 73 [facility], ) Sodium 144 Normal (applies [facility] (St [Moles/volume] mmol/L to non-numeric [facility]ony[facility] in Serum or results) Medical, ) Plasma Potassium 3.9 Normal (applies [facility] (St [Mass/volume] mmol/L to non-numeric Dony's in Blood results) [facility], ) Carbon dioxide, 23 mmol/L Normal (applies [facility] ( St total to non-numeric Dony's [Moles/volume] results) [facility], ) in Serum or Plasma Chloride 109 Above high normal [facility] (St [Moles/volume] mmol/L Dony's in Serum or [facility], ) Plasma Calcium 8.7 mg/dL Normal (applies [facility] (St [Moles/volume] to non-numeric Dony's in Urine results) [facility], ) collected for unspecified duration ID Date Data Source [id number] 09/23/2019 12:00:00 AM EDT [facility] ([facility], ) Name Value Range Interpretation Code Description Data Kimberly rce(s) Supporting Document(s ) ID Date Data Source [id number] 09/23/2019 12:00:00 AM EDT [facility] ([facility] Name Value Range Interpretation Code Description Data Kimberly rce(s) Supporting Document(s ) PDF Image . Normal (applies to [facility] (St non-numeric results) [facility], ) ID Date Data Source [id number] 09/23/2019 12:00:00 AM EDT [facility] ([facility], ) Name Value Range Interpretation Description Data Sup porting Code Source(s) Document(s ) Osmolality of 387 Normal (applies to [facility] (St Urine mOsmol/kg non-numeric Dony's results) [facility], ) ID Date Data Source [id number] 09/23/2019 12:00:00 AM EDT [facility] ([facility], ) Name Value Range Interpretation Description Data Sup porting Code Source(s) Document(s ) Osmolality of 308 Above high normal [facility] ( St Serum or mOsmol/kg Dony's Plasma [facility], ) ID Date Data Source [id number] 09/23/2019 12:00:00 AM EDT [facility] ([facility], ) Name Value Range Interpretation Description Data Sup porting Code Source(s) Document(s ) Glucose 216 mg/dL Above high normal [facility] (St [Mass/volume] Dony[facility] in Urine [facility], ) collected for unspecified duration Urea nitrogen 29 mg/dL Above high normal [facility] ( St [Mass/volume] [facility]ony[facility] in Serum or Medical, ) Plasma Creatinine 2.10 Above high normal [facility] (St [Interpretation mg/dL Dony's ] in Urine [facility], ) eGFR If 35 Below low normal [facility] (St NonAfricn Am mL/min/1. Dony's 73 [facility], ) eGFR If Africn 40 Below low normal [facility] ( St Am mL/min/1. Dony's 73 [facility], ) BUN/Creatinine 14 Normal (applies [facility] (S t Ratio to non-numeric Dony's results) [facility], ) Sodium 144 Normal (applies [facility] (St [Moles/volume] mmol/L to non-numeric [facility]ony[facility] in Serum or results) Medical, ) Plasma Potassium 3.9 Normal (applies [facility] (St [Mass/volume] mmol/L to non-numeric Dony's in Blood results) Medical, ) Chloride 109 Above high normal [facility] (St [Moles/volume] mmol/L Dony[facility] in Serum or Medical, ) Plasma Carbon dioxide, 23 mmol/L Normal (applies [facility] ( St total to non-numeric Dony's [Moles/volume] results) Medical, ) in Serum or Plasma Calcium 8.7 mg/dL Normal (applies [facility] (St [Moles/volume] to non-numeric [facility]ony[facility] in Urine results) Medical, ) collected for unspecified duration ID Date Data Source [id number] 09/23/2019 12:00:00 AM EDT [facility] ([facility], ) Name Value Range Interpretation Code Description Data Kimberly rce(s) Supporting Document(s ) ID Date Data Source [id number] 09/23/2019 12:00:00 AM EDT [facility] ([facility], ) Name Value Range Interpretation Description Data Sup porting Code Source(s) Document(s ) PDF Image . Normal (applies to [facility] (St non-numeric Dony's results) Medical, ) PDF Image . Normal (applies to [facility] (St non-numeric Dony's results) Medical, ) PDF Image . Normal (applies to [facility] (St non-numeric Dony's results) Medical, ) PDF . Normal (applies to [facility] (St non-numeric Dony's results) Medical, ) PDF Not applicable Normal (applies to [facility] (St non-numeric Dony's results) Medical, ) PDF Image . Normal (applies to [facility] (St non-numeric Dony's results) Medical, ) PDF Image . Normal (applies to [facility] (St non-numeric Dony's results) Medical, ) PDF Image . Normal (applies to [facility] (St non-numeric Dony's results) Medical, ) PDF Image . Normal (applies to [facility] (St non-numeric Dony's results) Medical, ) PDF Image . Normal (applies to [facility] (St non-numeric [facility]ony's results) Medical, ) PDF Image . Normal (applies to [facility] (St non-numeric [facility]ony's results) Medical, ) ID Date Data Source [id number] 09/23/2019 12:00:00 AM EDT [facility] ([facility], ) Name Value Range Interpretation Description Data Sup porting Code Source(s) Document(s ) Osmolality of 387 Normal (applies to [facility] (St Urine mOsmol/kg non-numeric [facility] results) Medical, ) ID Date Data Source [id number] 09/23/2019 12:00:00 AM EDT [facility] ([facility], ) Name Value Range Interpretation Description Data Sup porting Code Source(s) Document(s ) Osmolality of 308 Above high normal [facility] ( St Serum or mOsmol/kg [facility] Plasma [facility], ) ID Date Data Source [id number] 09/23/2019 12:00:00 AM EDT [facility] ([facility], ) Name Value Range Interpretation Description Data Sup porting Code Source(s) Document(s ) Urea nitrogen 19 mg/dL Normal (applies [facility] (St [Mass/volume] to non-numeric Dony[facility] in Serum or results) Medical, ) Plasma Glucose 229 mg/dL Above high normal [facility] (St [Mass/volume] Dony's in Urine Medical, ) collected for unspecified duration eGFR If 82 Normal (applies [facility] (St NonAfricn Am mL/min/1. to non-numeric Dony's 73 results) Medical, ) Creatinine 1.04 Normal (applies [facility] (St [Interpretation mg/dL to non-numeric Dony's ] in Urine results) Medical, ) eGFR If Africn 94 Normal (applies [facility] (S t Am mL/min/1. to non-numeric Dony[facility] 73 results) Medical, ) BUN/Creatinine 18 Normal (applies [facility] (S t Ratio to non-numeric [facility]ony's results) Medical, ) Potassium 4.6 Normal (applies [facility] (St [Mass/volume] mmol/L to non-numeric Dony[facility] in Blood results) Medical, ) Sodium 141 Normal (applies [facility] (St [Moles/volume] mmol/L to non-numeric Dony[facility] in Serum or results) Medical, ) Plasma Chloride 104 Normal (applies [facility] (St [Moles/volume] mmol/L to non-numeric Dony[facility] in Serum or results) Medical, ) Plasma Carbon dioxide, 24 mmol/L Normal (applies [facility] ( St total to non-numeric Dony's [Moles/volume] results) [facility], ) in Serum or Plasma Glucose 216 mg/dL Above high normal [facility] (St [Mass/volume] Dony's in Urine [facility], ) collected for unspecified duration Calcium 9.1 mg/dL Normal (applies [facility] (St [Moles/volume] to non-numeric Dony's in Urine results) [facility], ) collected for unspecified duration Creatinine 2.10 Above high normal [facility] (St [Interpretation mg/dL Dony's ] in Urine [facility], ) Urea nitrogen 29 mg/dL Above high normal [facility] ( St [Mass/volume] Dony's in Serum or [facility], ) Plasma eGFR If Africn 40 Below low normal [facility] ( St Am mL/min/1. Dony's 73 [facility], ) eGFR If 35 Below low normal [facility] (St NonAfricn Am mL/min/1. Dony 73 [facility], ) Sodium 144 Normal (applies [facility] (St [Moles/volume] mmol/L to non-numeric Dony's in Serum or results) [facility], ) Plasma BUN/Creatinine 14 Normal (applies [facility] (S t Ratio to non-numeric Dony's results) [facility], ) Chloride 109 Above high normal [facility] (St [Moles/volume] mmol/L Dony's in Serum or [facility], ) Plasma Potassium 3.9 Normal (applies [facility] (St [Mass/volume] mmol/L to non-numeric Dony's in Blood results) [facility], ) Calcium 8.7 mg/dL Normal (applies [facility] (St [Moles/volume] to non-numeric Dony's in Urine results) [facility], ) collected for unspecified duration Carbon dioxide, 23 mmol/L Normal (applies [facility] ( St total to non-numeric Dony's [Moles/volume] results) [facility], ) in Serum or Plasma Glucose 129 mg/dL Above high normal [facility] (St [Mass/volume] Dony's in Urine [facility], ) collected for unspecified duration Creatinine 2.54 Above high normal [facility] (St [Interpretation mg/dL Dony's ] in Urine [facility], ) Urea nitrogen 39 mg/dL Above high normal [facility] ( St [Mass/volume] Dony's in Serum or Medical, ) Plasma eGFR If 28 Below low normal [facility] (St NonAfricn Am mL/min/1. [facility]ony[facility] 73 [facility], ) eGFR If Africn 32 Below low normal [facility] ( St Am mL/min/1. Dony[facility] 73 [facility], ) BUN/Creatinine 15 Normal (applies [facility] (S t Ratio to non-numeric Dony's results) Medical, ) Sodium 145 Above high normal [facility] (St [Moles/volume] mmol/L Dony's in Serum or Medical, ) Plasma Chloride 111 Above high normal [facility] (St [Moles/volume] mmol/L Dony's in Serum or Medical, ) Plasma Potassium 4.1 Normal (applies [facility] (St [Mass/volume] mmol/L to non-numeric Dony's in Blood results) [facility], ) Carbon dioxide, 20 mmol/L Normal (applies [facility] ( St total to non-numeric Dony's [Moles/volume] results) [facility], ) in Serum or Plasma Calcium 8.2 mg/dL Below low normal [facility] (St [Moles/volume] Dony's in Urine [facility], ) collected for unspecified duration Urea nitrogen 25 mg/dL Above high normal [facility] ( St [Mass/volume] Dony's in Serum or Medical, ) Plasma Glucose 321 mg/dL Above high normal [facility] (St [Mass/volume] Dony's in Urine [facility], ) collected for unspecified duration Creatinine 0.99 Normal (applies [facility] (St [Interpretation mg/dL to non-numeric Dony's ] in Urine results) Medical, ) eGFR If 87 Normal (applies [facility] (St NonAfricn Am mL/min/1. to non-numeric Dony's 73 results) Medical, ) eGFR If Africn 101 Normal (applies [facility] (S t Am mL/min/1. to non-numeric Dony's 73 results) Medical, ) Sodium 138 Normal (applies [facility] (St [Moles/volume] mmol/L to non-numeric Dony's in Serum or results) Medical, ) Plasma BUN/Creatinine 25 Above high normal [facility] (St Ratio [facility], ) Potassium 5.6 Above high normal [facility] (St [Mass/volume] mmol/L Dony's in Blood [facility], ) Chloride 103 Normal (applies [facility] (St [Moles/volume] mmol/L to non-numeric Dony's in Serum or results) [facility], ) Plasma Carbon dioxide, 21 mmol/L Normal (applies [facility] ( St total to non-numeric Dony's [Moles/volume] results) [facility], ) in Serum or Plasma Calcium 9.8 mg/dL Normal (applies [facility] (St [Moles/volume] to non-numeric Dony's in Urine results) [facility], ) collected for unspecified duration Glucose 154 mg/dL Above high normal [facility] (St [Mass/volume] Dony's in Urine [facility], ) collected for unspecified duration Urea nitrogen 41 mg/dL Above high normal [facility] ( St [Mass/volume] Dony's in Serum or [facility], ) Plasma Creatinine 1.94 Above high normal [facility] (St [Interpretation mg/dL Dony's ] in Urine [facility], ) eGFR If Africn 45 Below low normal [facility] ( St Am mL/min/1. Dony's 73 [facility], ) eGFR If 39 Below low normal [facility] (St NonAfricn Am mL/min/1. Dony's 73 [facility], ) Sodium 141 Normal (applies [facility] (St [Moles/volume] mmol/L to non-numeric Dony's in Serum or results) [facility], ) Plasma BUN/Creatinine 21 Above high normal [facility] (St Ratio Dony's [facility], ) Chloride 105 Normal (applies [facility] (St [Moles/volume] mmol/L to non-numeric Dony's in Serum or results) [facility], ) Plasma Potassium 5.5 Above high normal [facility] (St [Mass/volume] mmol/L Dony's in Blood [facility], ) Calcium 9.3 mg/dL Normal (applies [facility] (St [Moles/volume] to non-numeric Dony's in Urine results) [facility], ) collected for unspecified duration Carbon dioxide, 21 mmol/L Normal (applies [facility] ( St total to non-numeric Dony's [Moles/volume] results) [facility], ) in Serum or Plasma Glucose 88 mg/dL Normal (applies [facility] (St [Mass/volume] to non-numeric Dony's in Urine results) [facility], ) collected for unspecified duration Urea nitrogen 33 mg/dL Above high normal [facility] ( St [Mass/volume] Dony's in Serum or Medical, ) Plasma Creatinine 1.45 Above high normal [facility] (St [Interpretation mg/dL Dony's ] in Urine Medical, ) eGFR If Africn 63 Normal (applies [facility] (S t Am mL/min/1. to non-numeric Dony's 73 results) Medical, ) eGFR If 55 Below low normal [facility] (St NonAfricn Am mL/min/1. [facility]ony[facility] 73 [facility], ) BUN/Creatinine 23 Above high normal [facility] (St Ratio [facility], ) Sodium 143 Normal (applies [facility] (St [Moles/volume] mmol/L to non-numeric Dony[facility] in Serum or results) Medical, ) Plasma Potassium 5.4 Above high normal [facility] (St [Mass/volume] mmol/L Dony's in Blood [facility], ) Chloride 106 Normal (applies [facility] (St [Moles/volume] mmol/L to non-numeric Dony's in Serum or results) Medical, ) Plasma Calcium 9.4 mg/dL Normal (applies [facility] (St [Moles/volume] to non-numeric Dony's in Urine results) Medical, ) collected for unspecified duration Carbon dioxide, 20 mmol/L Normal (applies [facility] ( St total to non-numeric Dony's [Moles/volume] results) Medical, ) in Serum or Plasma Urea nitrogen 21 mg/dL Normal (applies [facility] (St [Mass/volume] to non-numeric Dony's in Serum or results) Medical, ) Plasma Glucose 238 mg/dL Above high normal [facility] (St [Mass/volume] Dony's in Urine [facility], ) collected for unspecified duration eGFR If 74 Normal (applies [facility]GEN (St NonAfricn Am mL/min/1. to non-numeric Dony[facility] 73 results) Medical, ) Creatinine 1.13 Normal (applies [facility] (St [Interpretation mg/dL to non-numeric Dony's ] in Urine results) Medical, ) eGFR If Africn 85 Normal (applies [facility] (S t Am mL/min/1. to non-numeric [facility] 73 results) [facility], ) Sodium 140 Normal (applies [facility] (St [Moles/volume] mmol/L to non-numeric [facility] in Serum or results) Medical, ) Plasma BUN/Creatinine 19 Normal (applies [facility] (S t Ratio to non-numeric [facility] results) [facility]) Potassium 4.5 Normal (applies [facility] (St [Mass/volume] mmol/L to non-numeric [facility] in Blood results) [facility]) Chloride 103 Normal (applies [facility] (St [Moles/volume] mmol/L to non-numeric [facility] in Serum or results) [facility], ) Plasma Calcium 9.8 mg/dL Normal (applies [facility] (St [Moles/volume] to non-numeric [facility] in Urine results) [facility]) collected for unspecified duration Carbon dioxide, 19 mmol/L Below low normal [facility] (St total [facility] [Moles/volume] [facility]) in Serum or Plasma Urea nitrogen 28 mg/dL Above high normal [facility] ( St [Mass/volume] [facility] in Serum or [facility], ) Plasma Glucose 320 mg/dL Above high normal [facility] (St [Mass/volume] [facility] in Urine [facility]) collected for unspecified duration Creatinine 1.40 Above high normal [facility] (St [Interpretation mg/dL [facility] ] in Urine [facility]) eGFR If 57 Below low normal [facility] (St NonAfricn Am mL/min/1. [facility] 73 [facility], ) BUN/Creatinine 20 Normal (applies [facility] (S t Ratio to non-numeric [facility] results) [facility]) eGFR If Africn 65 Normal (applies [facility] (S t Am mL/min/1. to non-numeric [facility] 73 results) [facility]) Potassium 4.3 Normal (applies [facility] (St [Mass/volume] mmol/L to non-numeric [facility] in Blood results) [facility], ) Sodium 141 Normal (applies [facility] (St [Moles/volume] mmol/L to non-numeric [facility] in Serum or results) [facility], ) Plasma Chloride 103 Normal (applies [facility] (St [Moles/volume] mmol/L to non-numeric [facility] in Serum or results) [facility]) Plasma Carbon dioxide, 22 mmol/L Normal (applies [facility] ( St total to non-numeric [facility] [Moles/volume] results) [facility], ) in Serum or Plasma Calcium 8.9 mg/dL Normal (applies [facility] (St [Moles/volume] to non-numeric [facility] in Urine results) [facility]) collected for unspecified duration ID Date Data Source [id number] 08/29/2019 12:00:00 AM EDT [facility] Name Value Range Interpretation Code Description Data Kimberly rce(s) Supporting Document(s ) 2018-nCoV [facility] RNA XXX REBEKA+probe- Imp This lab was ordered by [facility]ian[facility] DONOVAN and reported by [facility]. ID Date Data Source [id number] 04/16/2019 12:00:00 AM EST [facility] Name Value Range Interpretation Code Description Data Kimberly rce(s) Supporting Document(s ) ID Date Data Source [id number] 04/16/2019 12:00:00 AM EST [facility] ([facility] Name Value Range Interpretation Code Description Data Kimberly rce(s) Supporting Document(s ) PDF Image . Normal (applies to [facility] (St non-numeric results) [facility]) ID Date Data Source [id number] 04/16/2019 12:00:00 AM EST [facility] ([facility] Name Value Range Interpretation Description Data Sup porting Code Source(s) Document(s ) Hemoglobin 8.5 % Above high normal [facility] (St A1c/Hemoglobin. [facility] total in Blood [facility]) ID Date Data Source [id number] 04/16/2019 12:00:00 AM EST [facility] ([facility] Name Value Range Interpretation Code Description Data Kimberly rce(s) Supporting Document(s ) ID Date Data Source [id number] 04/16/2019 12:00:00 AM EST [facility] ([facility] Name Value Range Interpretation Code Description Data Kimberly rce(s) Supporting Document(s ) PDF Image . Normal (applies to [facility] (St non-numeric results) [facility]) ID Date Data Source [id number] 04/16/2019 12:00:00 AM EST [facility] ([facility] Name Value Range Interpretation Description Data Sup porting Code Source(s) Document(s ) Hemoglobin 8.5 % Above high normal [facility] (St A1c/Hemoglobin. [facility] total in Blood [facility]) ID Date Data Source [id number] 04/16/2019 12:00:00 AM EST [facility] ([facility] Name Value Range Interpretation Code Description Data Kimberly rce(s) Supporting Document(s ) ID Date Data Source [id number] 04/16/2019 12:00:00 AM EST [facility] ([facility] Name Value Range Interpretation Code Description Data Kimberly rce(s) Supporting Document(s ) PDF Image . Normal (applies to [facility] (St non-numeric results) [facility]) ID Date Data Source [id number] 04/16/2019 12:00:00 AM EST [facility] ([facility] Name Value Range Interpretation Description Data Sup porting Code Source(s) Document(s ) Hemoglobin 8.5 % Above high normal [facility] (St A1c/Hemoglobin. [facility] total in Blood [facility]) ID Date Data Source [id number] 04/16/2019 12:00:00 AM EST [facility] ([facility] Name Value Range Interpretation Code Description Data Kimberly rce(s) Supporting Document(s ) ID Date Data Source [id number] 04/16/2019 12:00:00 AM EST [facility] ([facility] Name Value Range Interpretation Code Description Data Kimberly rce(s) Supporting Document(s ) PDF Image . Normal (applies to [facility] (St non-numeric results) [facility]) ID Date Data Source [id number] 04/16/2019 12:00:00 AM EST [facility] ([facility] Name Value Range Interpretation Code Description Data Kimberly rce(s) Supporting Document(s ) ID Date Data Source [id number] 04/16/2019 12:00:00 AM EST [facility] ([facility] Name Value Range Interpretation Code Description Data Kimberly rce(s) Supporting Document(s ) PDF Image . Normal (applies to [facility] (St non-numeric results) [facility]) ID Date Data Source [id number] 04/16/2019 12:00:00 AM EST [facility] ([facility] Name Value Range Interpretation Description Data Sup porting Code Source(s) Document(s ) Hemoglobin 8.5 % Above high normal [facility] (St A1c/Hemoglobin. [facility] total in Blood [facility], ) ID Date Data Source [id number] 04/16/2019 12:00:00 AM EST [facility] ([facility] Name Value Range Interpretation Code Description Data Kimberly rce(s) Supporting Document(s ) ID Date Data Source [id number] 04/16/2019 12:00:00 AM EST [facility] Name Value Range Interpretation Code Description Data Kimberly rce(s) Supporting Document(s ) PDF Image . Normal (applies to [facility] (St non-numeric results) [facility], ) ID Date Data Source [id number] 04/16/2019 12:00:00 AM EST [facility] ([facility], ) Name Value Range Interpretation Description Data Sup porting Code Source(s) Document(s ) Hemoglobin 8.5 % Above high normal [facility] (St A1c/Hemoglobin. [facility] total in Blood [facility], ) ID Date Data Source [id number] 04/16/2019 12:00:00 AM EST [facility]) Name Value Range Interpretation Description Data Sup porting Code Source(s) Document(s ) Aldosterone <1.0 Normal (applies [facility] (St [Molar amount] to non-numeric [facility] in Urine results) [facility], ) collected for unspecified duration Renin 0.178 Normal (applies [facility] (St [Enzymatic ng/mL/hr to non-numeric [facility] activity/volume results) Medical, ) ] in Plasma Aldos/Renin <5.6 Normal (applies [facility] (St Ratio to non-numeric [facility] results) [facility], ) ID Date Data Source [id number] 04/16/2019 12:00:00 AM EST [facility] Name Value Range Interpretation Code Description Data Kimberly rce(s) Supporting Document(s ) PDF Image . Normal (applies to [facility] (St non-numeric results) [facility]) ID Date Data Source [id number] 04/16/2019 12:00:00 AM EST [facility] ([facility] ) Name Value Range Interpretation Description Data Sup porting Code Source(s) Document(s ) Hemoglobin 8.5 % Above high normal [facility] (St A1c/Hemoglobin. [facility] total in Blood [facility]) ID Date Data Source [id number] 04/16/2019 12:00:00 AM EST [facility]) Name Value Range Interpretation Code Description Data Kimberly rce(s) Supporting Document(s ) ID Date Data Source [id number] 04/16/2019 12:00:00 AM EST [facility] ([facility] Name Value Range Interpretation Code Description Data Kimberly rce(s) Supporting Document(s ) PDF Image . Normal (applies to [facility] (St non-numeric results) [facility]) ID Date Data Source [id number] 04/16/2019 12:00:00 AM EST [facility] ([facility] Name Value Range Interpretation Description Data Sup porting Code Source(s) Document(s ) Hemoglobin 8.5 % Above high normal [facility] (St A1c/Hemoglobin. [facility] total in Blood [facility]) ID Date Data Source [id number] 04/16/2019 12:00:00 AM EST [facility] ([facility] Name Value Range Interpretation Code Description Data Kimberly rce(s) Supporting Document(s ) ID Date Data Source [id number] 04/16/2019 12:00:00 AM EST [facility] Name Value Range Interpretation Code Description Data Kimberly rce(s) Supporting Document(s ) PDF Image . Normal (applies to [facility] (St non-numeric results) [facility]) ID Date Data Source [id number] 04/16/2019 12:00:00 AM EST [facility] ([facility]) Name Value Range Interpretation Description Data Sup porting Code Source(s) Document(s ) Hemoglobin 8.5 % Above high normal [facility] (St A1c/Hemoglobin. [facility] total in Blood [facility]) ID Date Data Source [id number] 04/16/2019 12:00:00 AM EST [facility] ([facility] Name Value Range Interpretation Code Description Data Kimberly rce(s) Supporting Document(s ) ID Date Data Source [id number] 04/16/2019 12:00:00 AM EST [facility] ([facility] Name Value Range Interpretation Description Data Sup porting Code Source(s) Document(s ) Hemoglobin 8.5 % Above high normal [facility] (St A1c/Hemoglobin. [facility] total in Blood [facility], ) ID Date Data Source [id number] 04/16/2019 12:00:00 AM EST [facility] Name Value Range Interpretation Description Data Sup porting Code Source(s) Document(s ) Vitamin D, 8.0 ng/mL Below low normal [facility] (St 25-Hydroxy [facility]) ID Date Data Source [id number] 04/16/2019 12:00:00 AM EST [facility] Name Value Range Interpretation Description Data Sup porting Code Source(s) Document(s ) Folate 13.0 ng/mL Normal (applies to [facility] (St (Folic non-numeric [facility] Acid), results) Medical, ) Serum PDF Image . Normal (applies to [facility] (St non-numeric [facility] results) [facility], ) ID Date Data Source [id number] 04/16/2019 12:00:00 AM EST [facility] ([facility] Name Value Range Interpretation Description Data Sup porting Code Source(s) Document(s ) Hemoglobin 8.5 % Above high normal [facility] (St A1c/Hemoglobin. [facility] total in Blood [facility], ) ID Date Data Source [id number] 04/16/2019 12:00:00 AM EST [facility] ([facility] Name Value Range Interpretation Code Description Data Kimberly rce(s) Supporting Document(s ) ID Date Data Source [id number] 04/16/2019 12:00:00 AM EST [facility] Name Value Range Interpretation Code Description Data Kimberly rce(s) Supporting Document(s ) PDF Image . Normal (applies to [facility] (St non-numeric results) [facility], ) ID Date Data Source [id number] 04/16/2019 12:00:00 AM EST [facility] Name Value Range Interpretation Description Data Sup porting Code Source(s) Document(s ) Hemoglobin 8.5 % Above high normal [facility] (St A1c/Hemoglobin. [facility] total in Blood [facility], ) ID Date Data Source [id number] 04/16/2019 12:00:00 AM EST [facility] Name Value Range Interpretation Code Description Data Kimberly rce(s) Supporting Document(s ) PDF Image . Normal (applies to [facility] (St non-numeric results) [facility]) ID Date Data Source [id number] 04/16/2019 12:00:00 AM EST [facility] ([facility] Name Value Range Interpretation Description Data Sup porting Code Source(s) Document(s ) Hemoglobin 8.5 % Above high normal [facility] (St A1c/Hemoglobin. [facility] total in Blood [facility]) ID Date Data Source [id number] 04/16/2019 12:00:00 AM EST [facility] ([facility] Name Value Range Interpretation Code Description Data Kimberly rce(s) Supporting Document(s ) ID Date Data Source [id number] 04/16/2019 12:00:00 AM EST [facility] ([facility] Name Value Range Interpretation Description Data Sup porting Code Source(s) Document(s ) PDF Image . Normal (applies to [facility] (St non-numeric [facility] results) [facility]) PDF Image . Normal (applies to [facility] (St non-numeric [facility] results) [facility]) PDF Image . Normal (applies to [facility] (St non-numeric [facility] results) [facility]) PDF Not applicable Normal (applies to [facility] (St non-numeric [facility] results) [facility]) PDF . Normal (applies to [facility] (St non-numeric [facility] results) [facility]) PDF Image . Normal (applies to [facility] (St non-numeric [facility] results) [facility]) PDF Image . Normal (applies to [facility] (St non-numeric [facility] results) [facility]) PDF Image . Normal (applies to [facility] (St non-numeric [facility] results) [facility]) PDF Image . Normal (applies to [facility] (St non-numeric [facility] results) [facility]) PDF Image . Normal (applies to [facility] (St non-numeric [facility] results) [facility]) PDF Image . Normal (applies to [facility] (St non-numeric [facility] results) [facility]) ID Date Data Source [id number] 04/16/2019 12:00:00 AM EST [facility] ([facility] ) Name Value Range Interpretation Description Data Sup porting Code Source(s) Document(s ) Hemoglobin 9.0 % Above high normal [facility] (St A1c/Hemoglobin [facility] .total in Medical, ) Blood Hemoglobin 9.1 % Above high normal [facility] (St A1c/Hemoglobin [facility] .total in [facility], ) Blood Hemoglobin 11.6 % Above high normal [facility] (St A1c/Hemoglobin [facility] .total in Medical, ) Blood Hemoglobin 7.0 % Above high normal [facility] (St A1c/Hemoglobin [facility]ony[facility] .total in [facility], ) Blood Hemoglobin 8.3 % Above high normal [facility] (St A1c/Hemoglobin [facility]ony[facility] .total in [facility], ) Blood Hemoglobin 9.4 % Above high normal [facility] (St A1c/Hemoglobin [facility] .total in [facility], ) Blood Hemoglobin 8.5 % Above high normal [facility] (St A1c/Hemoglobin [facility]ony[facility] .total in [facility], ) Blood ID Date Data Source [id number] 02/01/2019 12:00:00 AM EDT [facility] ([facility], ) Name Value Range Interpretation Description Data Sup porting Code Source(s) Document(s ) Glucose 320 mg/dL Above high normal [facility] (St [Mass/volume] [facility] in Urine [facility], ) collected for unspecified duration Urea nitrogen 28 mg/dL Above high normal [facility] ( St [Mass/volume] [facility] in Serum or [facility], ) Plasma Creatinine 1.40 Above high normal [facility] (St [Interpretation mg/dL [facility]ony[facility] ] in Urine [facility], ) eGFR If 57 Below low normal [facility] (St NonAfricn Am mL/min/1. [facility]ony[facility] 73 [facility], ) eGFR If Africn 65 Normal (applies [facility] (S t Am mL/min/1. to non-numeric [facility] 73 results) [facility], ) BUN/Creatinine 20 Normal (applies [facility] (S t Ratio to non-numeric [facility] results) [facility], ) Sodium 141 Normal (applies [facility] (St [Moles/volume] mmol/L to non-numeric [facility] in Serum or results) [facility], ) Plasma Potassium 4.3 Normal (applies [facility] (St [Mass/volume] mmol/L to non-numeric [facility] in Blood results) Medical, ) Chloride 103 Normal (applies [facility] (St [Moles/volume] mmol/L to non-numeric [facility] in Serum or results) [facility], ) Plasma Carbon dioxide, 22 mmol/L Normal (applies [facility] ( St total to non-numeric [facility] [Moles/volume] results) [facility], ) in Serum or Plasma Calcium 8.9 mg/dL Normal (applies [facility] (St [Moles/volume] to non-numeric [facility] in Urine results) [facility], ) collected for unspecified duration ID Date Data Source [id number] 02/01/2019 12:00:00 AM EDT [facility] ([facility], ) Name Value Range Interpretation Description Data Sup porting Code Source(s) Document(s ) Glucose 320 mg/dL Above high normal [facility] (St [Mass/volume] [facility] in Urine [facility], ) collected for unspecified duration Urea nitrogen 28 mg/dL Above high normal [facility] ( St [Mass/volume] [facility] in Serum or Medical, ) Plasma eGFR If 57 Below low normal [facility] (St NonAfricn Am mL/min/1. [facility] 73 [facility], ) Creatinine 1.40 Above high normal [facility] (St [Interpretation mg/dL [facility] ] in Urine [facility], ) eGFR If Africn 65 Normal (applies [facility] (S t Am mL/min/1. to non-numeric [facility] 73 results) Medical, ) BUN/Creatinine 20 Normal (applies [facility] (S t Ratio to non-numeric [facility] results) [facility], ) Potassium 4.3 Normal (applies [facility] (St [Mass/volume] mmol/L to non-numeric [facility] in Blood results) [facility], ) Sodium 141 Normal (applies [facility] (St [Moles/volume] mmol/L to non-numeric [facility] in Serum or results) [facility], ) Plasma Chloride 103 Normal (applies [facility] (St [Moles/volume] mmol/L to non-numeric [facility] in Serum or results) [facility], ) Plasma Carbon dioxide, 22 mmol/L Normal (applies [facility] ( St total to non-numeric [facility] [Moles/volume] results) Medical, ) in Serum or Plasma Calcium 8.9 mg/dL Normal (applies [facility] (St [Moles/volume] to non-numeric [facility] in Urine results) [facility], ) collected for unspecified duration ID Date Data Source [id number] 02/01/2019 12:00:00 AM EDT [facility] ([facility], ) Name Value Range Interpretation Description Data Sup porting Code Source(s) Document(s ) Glucose 320 mg/dL Above high normal [facility] (St [Mass/volume] [facility] in Urine [facility], ) collected for unspecified duration Creatinine 1.40 Above high normal [facility] (St [Interpretation mg/dL Dony's ] in Urine [facility], ) Urea nitrogen 28 mg/dL Above high normal [facility] ( St [Mass/volume] [facility] in Serum or [facility], ) Plasma eGFR If 57 Below low normal [facility] (St NonAfricn Am mL/min/1. [facility]ony[facility] 73 [facility], ) eGFR If Africn 65 Normal (applies [facility] (S t Am mL/min/1. to non-numeric [facility] 73 results) [facility], ) BUN/Creatinine 20 Normal (applies [facility] (S t Ratio to non-numeric [facility] results) [facility], ) Sodium 141 Normal (applies [facility] (St [Moles/volume] mmol/L to non-numeric [facility] in Serum or results) [facility], ) Plasma Potassium 4.3 Normal (applies [facility] (St [Mass/volume] mmol/L to non-numeric [facility] in Blood results) [facility], ) Chloride 103 Normal (applies [facility] (St [Moles/volume] mmol/L to non-numeric [facility] in Serum or results) [facility], ) Plasma Carbon dioxide, 22 mmol/L Normal (applies [facility] ( St total to non-numeric [facility] [Moles/volume] results) [facility], ) in Serum or Plasma Calcium 8.9 mg/dL Normal (applies [facility] (St [Moles/volume] to non-numeric [facility] in Urine results) [facility], ) collected for unspecified duration ID Date Data Source [id number] 02/01/2019 12:00:00 AM EDT [facility] ([facility], ) Name Value Range Interpretation Description Data Sup porting Code Source(s) Document(s ) Glucose 320 mg/dL Above high normal [facility] (St [Mass/volume] [facility]ony[facility] in Urine [facility], ) collected for unspecified duration Urea nitrogen 28 mg/dL Above high normal [facility] ( St [Mass/volume] [facility] in Serum or [facility], ) Plasma Creatinine 1.40 Above high normal [facility] (St [Interpretation mg/dL Dony's ] in Urine [facility], ) eGFR If 57 Below low normal [facility] (St NonAfricn Am mL/min/1. [facility]ony[facility] 73 [facility], ) eGFR If Africn 65 Normal (applies [facility] (S t Am mL/min/1. to non-numeric [facility] 73 results) [facility], ) BUN/Creatinine 20 Normal (applies [facility] (S t Ratio to non-numeric [facility] results) [facility], ) Sodium 141 Normal (applies [facility] (St [Moles/volume] mmol/L to non-numeric [facility] in Serum or results) [facility], ) Plasma Potassium 4.3 Normal (applies [facility] (St [Mass/volume] mmol/L to non-numeric [facility] in Blood results) [facility], ) Chloride 103 Normal (applies [facility] (St [Moles/volume] mmol/L to non-numeric [facility] in Serum or results) [facility], ) Plasma Carbon dioxide, 22 mmol/L Normal (applies [facility] ( St total to non-numeric [facility] [Moles/volume] results) [facility], ) in Serum or Plasma Calcium 8.9 mg/dL Normal (applies [facility] (St [Moles/volume] to non-numeric [facility] in Urine results) [facility], ) collected for unspecified duration ID Date Data Source [id number] 02/01/2019 12:00:00 AM EDT [facility] ([facility], ) Name Value Range Interpretation Description Data Sup porting Code Source(s) Document(s ) Glucose 320 mg/dL Above high normal [facility] (St [Mass/volume] [facility] in Urine [facility], ) collected for unspecified duration Urea nitrogen 28 mg/dL Above high normal [facility] ( St [Mass/volume] [facility] in Serum or [facility], ) Plasma Creatinine 1.40 Above high normal [facility] (St [Interpretation mg/dL Dony's ] in Urine [facility], ) eGFR If 57 Below low normal [facility] (St NonAfricn Am mL/min/1. [facility] 73 [facility], ) eGFR If Africn 65 Normal (applies [facility] (S t Am mL/min/1. to non-numeric [facility] 73 results) Medical, ) BUN/Creatinine 20 Normal (applies [facility] (S t Ratio to non-numeric [facility] results) [facility], ) Sodium 141 Normal (applies [facility] (St [Moles/volume] mmol/L to non-numeric [facility] in Serum or results) Medical, ) Plasma Potassium 4.3 Normal (applies [facility] (St [Mass/volume] mmol/L to non-numeric [facility] in Blood results) [facility], ) Chloride 103 Normal (applies [facility] (St [Moles/volume] mmol/L to non-numeric [facility] in Serum or results) [facility], ) Plasma Carbon dioxide, 22 mmol/L Normal (applies [facility] ( St total to non-numeric [facility] [Moles/volume] results) [facility], ) in Serum or Plasma Calcium 8.9 mg/dL Normal (applies MEDGEN (St [Moles/volume] to non-numeric Dony's in Urine results) [facility], ) collected for unspecified duration ID Date Data Source [id number] 02/01/2019 12:00:00 AM EDT MED[facility] (St [facility] [facility], ) Name Value Range Interpretation Description Data Sup porting Code Source(s) Document(s ) Glucose 320 mg/dL Above high normal MEDGEN (St [Mass/volume] Dony's in Urine [facility], ) collected for unspecified duration Urea nitrogen 28 mg/dL Above high normal MEDGEN ( St [Mass/volume] Dony's in Serum or Medical, ) Plasma Creatinine 1.40 Above high normal [facility] (St [Interpretation mg/dL Dony's ] in Urine [facility], ) eGFR If 57 Below low normal MEDGEN (St NonAfricn Am mL/min/1. Donys 73 [facility], ) eGFR If Africn 65 Normal (applies MEDGEN (S t Am mL/min/1. to non-numeric Dony's 73 results) [facility], ) BUN/Creatinine 20 Normal (applies MEDGEN (S t Ratio to non-numeric Dony's results) [facility], ) Sodium 141 Normal (applies [facility]GEN (St [Moles/volume] mmol/L to non-numeric Dony's in Serum or results) Medical, ) Plasma Potassium 4.3 Normal (applies [facility]GEN (St [Mass/volume] mmol/L to non-numeric Dony's in Blood results) Medical, ) Chloride 103 Normal (applies [facility] (St [Moles/volume] mmol/L to non-numeric Dony's in Serum or results) Medical, ) Plasma Carbon dioxide, 22 mmol/L Normal (applies MEDGEN ( St total to non-numeric Dony's [Moles/volume] results) Medical, ) in Serum or Plasma Calcium 8.9 mg/dL Normal (applies [facility] (St [Moles/volume] to non-numeric Dony's in Urine results) [facility], ) collected for unspecified duration ID Date Data Source [id number] 02/01/2019 12:00:00 AM EDT MED[facility] (St [facility], ) Name Value Range Interpretation Description Data Sup porting Code Source(s) Document(s ) Glucose 320 mg/dL Above high normal [facility] (St [Mass/volume] Dony's in Urine [facility], ) collected for unspecified duration Urea nitrogen 28 mg/dL Above high normal MEDGEN ( St [Mass/volume] Dony's in Serum or Medical, ) Plasma Creatinine 1.40 Above high normal [facility] (St [Interpretation mg/dL Dony's ] in Urine [facility], ) eGFR If 57 Below low normal MED[facility] (St NonAfricn Am mL/min/1. Dony's 73 [facility], ) eGFR If Africn 65 Normal (applies MEDGEN (S t Am mL/min/1. to non-numeric Dony's 73 results) Medical, ) BUN/Creatinine 20 Normal (applies MEDGEN (S t Ratio to non-numeric Dony's results) Medical, ) Potassium 4.3 Normal (applies MEDGEN (St [Mass/volume] mmol/L to non-numeric Dony's in Blood results) Medical, ) Sodium 141 Normal (applies [facility]GEN (St [Moles/volume] mmol/L to non-numeric Dony's in Serum or results) Medical, ) Plasma Chloride 103 Normal (applies [facility]GEN (St [Moles/volume] mmol/L to non-numeric Dony's in Serum or results) Medical, ) Plasma Carbon dioxide, 22 mmol/L Normal (applies MEDGEN ( St total to non-numeric Dony's [Moles/volume] results) [facility], ) in Serum or Plasma Calcium 8.9 mg/dL Normal (applies [facility]GEN (St [Moles/volume] to non-numeric Dony's in Urine results) [facility], ) collected for unspecified duration ID Date Data Source [id number] 02/01/2019 12:00:00 AM EDT [facility] (St [facility] [facility], ) Name Value Range Interpretation Description Data Sup porting Code Source(s) Document(s ) Glucose 320 mg/dL Above high normal [facility] (St [Mass/volume] Dony's in Urine [facility], ) collected for unspecified duration Creatinine 1.40 Above high normal MED[facility] (St [Interpretation mg/dL Dony's ] in Urine [facility], ) Urea nitrogen 28 mg/dL Above high normal MEDGEN ( St [Mass/volume] Dony's in Serum or [facility], ) Plasma eGFR If 57 Below low normal MED[facility] (St NonAfricn Am mL/min/1. Dony's 73 [facility], ) BUN/Creatinine 20 Normal (applies MEDGEN (S t Ratio to non-numeric Dony's results) [facility], ) eGFR If Africn 65 Normal (applies MEDGEN (S t Am mL/min/1. to non-numeric Dony's 73 results) Medical, ) Sodium 141 Normal (applies [facility] (St [Moles/volume] mmol/L to non-numeric Dony's in Serum or results) Medical, ) Plasma Potassium 4.3 Normal (applies MEDGEN (St [Mass/volume] mmol/L to non-numeric Dony's in Blood results) [facility], ) Chloride 103 Normal (applies MEDGEN (St [Moles/volume] mmol/L to non-numeric Dony's in Serum or results) [facility], ) Plasma Carbon dioxide, 22 mmol/L Normal (applies MEDGEN ( St total to non-numeric Dony's [Moles/volume] results) [facility], ) in Serum or Plasma Calcium 8.9 mg/dL Normal (applies [facility] (St [Moles/volume] to non-numeric Dony's in Urine results) [facility], ) collected for unspecified duration ID Date Data Source [id number] 02/01/2019 12:00:00 AM EDT [facility] ([facility], ) Name Value Range Interpretation Description Data Sup porting Code Source(s) Document(s ) Glucose 320 mg/dL Above high normal MEDGEN (St [Mass/volume] Dony's in Urine [facility], ) collected for unspecified duration Creatinine 1.40 Above high normal MEDGEN (St [Interpretation mg/dL Dony's ] in Urine [facility], ) Urea nitrogen 28 mg/dL Above high normal MEDGEN ( St [Mass/volume] Dony's in Serum or [facility], ) Plasma eGFR If 57 Below low normal MEDGEN (St NonAfricn Am mL/min/1. Dony's 73 [facility], ) eGFR If Africn 65 Normal (applies MEDGEN (S t Am mL/min/1. to non-numeric Dony's 73 results) [facility]) BUN/Creatinine 20 Normal (applies MEDGEN (S t Ratio to non-numeric Dony's results) [facility], ) Sodium 141 Normal (applies MEDGEN (St [Moles/volume] mmol/L to non-numeric Dony's in Serum or results) [facility]) Plasma Potassium 4.3 Normal (applies MEDGEN (St [Mass/volume] mmol/L to non-numeric Dony's in Blood results) [facility]) Chloride 103 Normal (applies MEDGEN (St [Moles/volume] mmol/L to non-numeric Dony's in Serum or results) [facility]) Plasma Calcium 8.9 mg/dL Normal (applies MEDGEN (St [Moles/volume] to non-numeric Dony's in Urine results) [facility], ) collected for unspecified duration Carbon dioxide, 22 mmol/L Normal (applies MEDGEN ( St total to non-numeric Dony's [Moles/volume] results) [facility]) in Serum or Plasma ID Date Data Source [id number] 02/01/2019 12:00:00 AM EDT [facility] (St [facility] [facility], ) Name Value Range Interpretation Description Data Sup porting Code Source(s) Document(s ) Urea nitrogen 28 mg/dL Above high normal MEDGEN ( St [Mass/volume] Dony's in Serum or [facility], ) Plasma Glucose 320 mg/dL Above high normal [facility] (St [Mass/volume] Dony's in Urine [facility], ) collected for unspecified duration Creatinine 1.40 Above high normal [facility] (St [Interpretation mg/dL Dony's ] in Urine [facility], ) eGFR If 57 Below low normal MEDGEN (St NonAfricn Am mL/min/1. Donys 73 [facility], ) eGFR If Africn 65 Normal (applies MEDGEN (S t Am mL/min/1. to non-numeric Dony's 73 results) Medical, ) Sodium 141 Normal (applies [facility] (St [Moles/volume] mmol/L to non-numeric Dony's in Serum or results) Medical, ) Plasma BUN/Creatinine 20 Normal (applies MEDGEN (S t Ratio to non-numeric Dony's results) [facility], ) Potassium 4.3 Normal (applies MEDGEN (St [Mass/volume] mmol/L to non-numeric Dony's in Blood results) [facility], ) Carbon dioxide, 22 mmol/L Normal (applies MEDGEN ( St total to non-numeric Dony's [Moles/volume] results) [facility], ) in Serum or Plasma Chloride 103 Normal (applies MEDGEN (St [Moles/volume] mmol/L to non-numeric Dony's in Serum or results) [facility], ) Plasma Calcium 8.9 mg/dL Normal (applies [facility]GEN (St [Moles/volume] to non-numeric Dony's in Urine results) [facility], ) collected for unspecified duration ID Date Data Source [id number] 02/01/2019 12:00:00 AM EDT [facility] (St [facility] [facility], ) Name Value Range Interpretation Description Data Sup porting Code Source(s) Document(s ) Glucose 320 mg/dL Above high normal [facility] (St [Mass/volume] Dony's in Urine [facility], ) collected for unspecified duration Urea nitrogen 28 mg/dL Above high normal MEDGEN ( St [Mass/volume] Dony's in Serum or [facility], ) Plasma Creatinine 1.40 Above high normal [facility] (St [Interpretation mg/dL Dony's ] in Urine [facility], ) eGFR If 57 Below low normal MEDGEN (St NonAfricn Am mL/min/1. Dony's 73 [facility], ) eGFR If Africn 65 Normal (applies MEDGEN (S t Am mL/min/1. to non-numeric Dony's 73 results) [facility], ) BUN/Creatinine 20 Normal (applies MEDGEN (S t Ratio to non-numeric Dony's results) [facility], ) Sodium 141 Normal (applies MEDGEN (St [Moles/volume] mmol/L to non-numeric Dony's in Serum or results) [facility]) Plasma Potassium 4.3 Normal (applies MEDGEN (St [Mass/volume] mmol/L to non-numeric Dony's in Blood results) [facility], ) Chloride 103 Normal (applies MEDGEN (St [Moles/volume] mmol/L to non-numeric Dony's in Serum or results) [facility], ) Plasma Carbon dioxide, 22 mmol/L Normal (applies MEDGEN ( St total to non-numeric Dony's [Moles/volume] results) [facility]) in Serum or Plasma Calcium 8.9 mg/dL Normal (applies MEDGEN (St [Moles/volume] to non-numeric Dony's in Urine results) [facility]) collected for unspecified duration ID Date Data Source [id number] 02/01/2019 12:00:00 AM EDT [facility] (St [facility], ) Name Value Range Interpretation Description Data Sup porting Code Source(s) Document(s ) Glucose 320 mg/dL Above high normal [facility]GEN (St [Mass/volume] Dony's in Urine [facility], ) collected for unspecified duration Urea nitrogen 28 mg/dL Above high normal MEDGEN ( St [Mass/volume] Dony's in Serum or [facility], ) Plasma Creatinine 1.40 Above high normal [facility] (St [Interpretation mg/dL Dony's ] in Urine [facility], ) eGFR If 57 Below low normal MEDGEN (St NonAfricn Am mL/min/1. Dony's 73 [facility], ) eGFR If Africn 65 Normal (applies MEDGEN (S t Am mL/min/1. to non-numeric Dony's 73 results) [facility], ) BUN/Creatinine 20 Normal (applies MEDGEN (S t Ratio to non-numeric Dony's results) [facility], ) Sodium 141 Normal (applies MEDGEN (St [Moles/volume] mmol/L to non-numeric Dony's in Serum or results) [facility], ) Plasma Potassium 4.3 Normal (applies MEDGEN (St [Mass/volume] mmol/L to non-numeric Dony's in Blood results) [facility], ) Chloride 103 Normal (applies [facility]GEN (St [Moles/volume] mmol/L to non-numeric Dony's in Serum or results) Medical, ) Plasma Carbon dioxide, 22 mmol/L Normal (applies MEDGEN ( St total to non-numeric Dony's [Moles/volume] results) Medical, ) in Serum or Plasma Calcium 8.9 mg/dL Normal (applies [facility]GEN (St [Moles/volume] to non-numeric Dony's in Urine results) Medical, ) collected for unspecified duration ID Date Data Source [id number] 02/01/2019 12:00:00 AM EDT [facility] (St [facility], ) Name Value Range Interpretation Description Data Sup porting Code Source(s) Document(s ) Glucose 320 mg/dL Above high normal MEDGEN (St [Mass/volume] Dony's in Urine [facility], ) collected for unspecified duration Urea nitrogen 28 mg/dL Above high normal MEDGEN ( St [Mass/volume] Dony's in Serum or Medical, ) Plasma Creatinine 1.40 Above high normal MED[facility] (St [Interpretation mg/dL Dony's ] in Urine [facility], ) eGFR If 57 Below low normal MEDGEN (St NonAfricn Am mL/min/1. Dony's 73 [facility], ) BUN/Creatinine 20 Normal (applies MEDGEN (S t Ratio to non-numeric Dony's results) [facility], ) eGFR If Africn 65 Normal (applies MEDGEN (S t Am mL/min/1. to non-numeric Dony's 73 results) Medical, ) Sodium 141 Normal (applies MEDGEN (St [Moles/volume] mmol/L to non-numeric Dony's in Serum or results) Medical, ) Plasma Potassium 4.3 Normal (applies MEDGEN (St [Mass/volume] mmol/L to non-numeric Dony's in Blood results) Medical, ) Chloride 103 Normal (applies MEDGEN (St [Moles/volume] mmol/L to non-numeric Dony's in Serum or results) Medical, ) Plasma Carbon dioxide, 22 mmol/L Normal (applies MEDGEN ( St total to non-numeric Dony's [Moles/volume] results) Medical, ) in Serum or Plasma Calcium 8.9 mg/dL Normal (applies MEDGEN (St [Moles/volume] to non-numeric Dony's in Urine results) [facility], ) collected for unspecified duration ID Date Data Source [id number] 02/01/2019 12:00:00 AM EDT [facility] (St [place] [facility], ) Name Value Range Interpretation Description Data Sup porting Code Source(s) Document(s ) Glucose 229 mg/dL Above high normal [facility]GEN (St [Mass/volume] Odny's in Urine [facility], ) collected for unspecified duration Urea nitrogen 19 mg/dL Normal (applies [facility]GEN (St [Mass/volume] to non-numeric Dony's in Serum or results) Medical, ) Plasma Creatinine 1.04 Normal (applies [facility]GEN (St [Interpretation mg/dL to non-numeric Dony's ] in Urine results) Medical, ) eGFR If 82 Normal (applies MEDGEN (St NonAfricn Am mL/min/1. to non-numeric Dony's 73 results) Medical, ) eGFR If Africn 94 Normal (applies MEDGEN (S t Am mL/min/1. to non-numeric Dony's 73 results) Medical, ) Sodium 141 Normal (applies MEDGEN (St [Moles/volume] mmol/L to non-numeric Dony's in Serum or results) Medical, ) Plasma BUN/Creatinine 18 Normal (applies MEDGEN (S t Ratio to non-numeric Dony's results) Medical, ) Potassium 4.6 Normal (applies MEDGEN (St [Mass/volume] mmol/L to non-numeric Dony's in Blood results) Medical, ) Chloride 104 Normal (applies MEDGEN (St [Moles/volume] mmol/L to non-numeric Odny's in Serum or results) Medical, ) Plasma Carbon dioxide, 24 mmol/L Normal (applies MEDGEN ( St total to non-numeric Dony's [Moles/volume] results) Medical, ) in Serum or Plasma Calcium 9.1 mg/dL Normal (applies [facility]GEN (St [Moles/volume] to non-numeric Dony's in Urine results) Medical, ) collected for unspecified duration Glucose 216 mg/dL Above high normal [facility] (St [Mass/volume] Dony's in Urine [facility], ) collected for unspecified duration Urea nitrogen 29 mg/dL Above high normal MEDGEN ( St [Mass/volume] Dony's in Serum or Medical, ) Plasma Creatinine 2.10 Above high normal MED[facility] (St [Interpretation mg/dL Dony's ] in Urine [facility], ) eGFR If Africn 40 Below low normal MEDGEN ( St Am mL/min/1. Dony's 73 [facility], ) eGFR If 35 Below low normal MEDGEN (St NonAfricn Am mL/min/. Donys 73 [facility], ) Sodium 144 Normal (applies MEDGEN (St [Moles/volume] mmol/L to non-numeric Dony's in Serum or results) [facility], ) Plasma BUN/Creatinine 14 Normal (applies MEDGEN (S t Ratio to non-numeric Dony's results) [facility], ) Chloride 109 Above high normal MED[facility] (St [Moles/volume] mmol/L Dony's in Serum or [facility], ) Plasma Potassium 3.9 Normal (applies MEDGEN (St [Mass/volume] mmol/L to non-numeric Dony's in Blood results) [facility], ) Carbon dioxide, 23 mmol/L Normal (applies MEDGEN ( St total to non-numeric Dony's [Moles/volume] results) [facility], ) in Serum or Plasma Calcium 8.7 mg/dL Normal (applies MEDGEN (St [Moles/volume] to non-numeric Dony's in Urine results) [facility], ) collected for unspecified duration Glucose 129 mg/dL Above high normal MED[facility] (St [Mass/volume] Dony's in Urine [facility], ) collected for unspecified duration Creatinine 2.54 Above high normal MEDGEN (St [Interpretation mg/dL Dony's ] in Urine [facility], ) Urea nitrogen 39 mg/dL Above high normal MEDGEN ( St [Mass/volume] Dony's in Serum or [facility], ) Plasma eGFR If Africn 32 Below low normal MEDGEN ( St Am mL/min/. Donys 73 [facility], ) eGFR If 28 Below low normal MEDGEN (St NonAfricn Am mL/min/. Dony's 73 [facility], ) Sodium 145 Above high normal MEDGEN (St [Moles/volume] mmol/L Dony's in Serum or [facility], ) Plasma BUN/Creatinine 15 Normal (applies MEDGEN (S t Ratio to non-numeric Dony's results) [facility], ) Potassium 4.1 Normal (applies MEDGEN (St [Mass/volume] mmol/L to non-numeric Dony's in Blood results) Medical, ) Chloride 111 Above high normal MEDGEN (St [Moles/volume] mmol/L Dony's in Serum or [facility], ) Plasma Carbon dioxide, 20 mmol/L Normal (applies MEDGEN ( St total to non-numeric Dony's [Moles/volume] results) [facility], ) in Serum or Plasma Calcium 8.2 mg/dL Below low normal [facility]GEN (St [Moles/volume] Dony's in Urine [facility], ) collected for unspecified duration Glucose 321 mg/dL Above high normal MEDGEN (St [Mass/volume] Dony's in Urine [facility], ) collected for unspecified duration Creatinine 0.99 Normal (applies MEDGEN (St [Interpretation mg/dL to non-numeric Dony's ] in Urine results) [facility], ) Urea nitrogen 25 mg/dL Above high normal MEDGEN ( St [Mass/volume] Dony's in Serum or [facility], ) Plasma eGFR If Africn 101 Normal (applies MEDGEN (S t Am mL/min/1. to non-numeric Dony's 73 results) [facility], ) eGFR If 87 Normal (applies MEDGEN (St NonAfricn Am mL/min/1. to non-numeric Dony's 73 results) [facility], ) Sodium 138 Normal (applies MEDGEN (St [Moles/volume] mmol/L to non-numeric Dony's in Serum or results) [facility], ) Plasma BUN/Creatinine 25 Above high normal MEDGEN (St Ratio Dony's [facility], ) Potassium 5.6 Above high normal [facility]GEN (St [Mass/volume] mmol/L Dony's in Blood [facility], ) Chloride 103 Normal (applies MEDGEN (St [Moles/volume] mmol/L to non-numeric Dony's in Serum or results) [facility], ) Plasma Carbon dioxide, 21 mmol/L Normal (applies MEDGEN ( St total to non-numeric Dony's [Moles/volume] results) [facility], ) in Serum or Plasma Calcium 9.8 mg/dL Normal (applies MEDGEN (St [Moles/volume] to non-numeric Dony's in Urine results) [facility], ) collected for unspecified duration Glucose 154 mg/dL Above high normal MEDGEN (St [Mass/volume] Dony's in Urine [facility], ) collected for unspecified duration Urea nitrogen 41 mg/dL Above high normal MEDGEN ( St [Mass/volume] Dony's in Serum or [facility], ) Plasma Creatinine 1.94 Above high normal MEDGEN (St [Interpretation mg/dL Dony's ] in Urine [facility], ) eGFR If 39 Below low normal MEDGEN (St NonAfricn Am mL/min/1. 73 [facility], ) eGFR If Africn 45 Below low normal MEDGEN ( St Am mL/min/1. Donys 73 [facility], ) Sodium 141 Normal (applies MEDGEN (St [Moles/volume] mmol/L to non-numeric Dony's in Serum or results) [facility], ) Plasma BUN/Creatinine 21 Above high normal [facility]GEN (St Ratio Dony's [facility], ) Potassium 5.5 Above high normal [facility]GEN (St [Mass/volume] mmol/L Dony's in Blood [facility], ) Chloride 105 Normal (applies MEDGEN (St [Moles/volume] mmol/L to non-numeric Dony's in Serum or results) [facility], ) Plasma Carbon dioxide, 21 mmol/L Normal (applies MEDGEN ( St total to non-numeric Dony's [Moles/volume] results) [facility], ) in Serum or Plasma Calcium 9.3 mg/dL Normal (applies MEDGEN (St [Moles/volume] to non-numeric Dony's in Urine results) [facility], ) collected for unspecified duration Glucose 88 mg/dL Normal (applies MEDGEN (St [Mass/volume] to non-numeric Dony's in Urine results) [facility], ) collected for unspecified duration Urea nitrogen 33 mg/dL Above high normal MEDGEN ( St [Mass/volume] Dony's in Serum or [facility], ) Plasma Creatinine 1.45 Above high normal [facility]GEN (St [Interpretation mg/dL Dony's ] in Urine [facility], ) eGFR If 55 Below low normal MEDGEN (St NonAfricn Am mL/min/1. Dony's 73 [facility], ) eGFR If Africn 63 Normal (applies MEDGEN (S t Am mL/min/1. to non-numeric Dony's 73 results) [facility], ) BUN/Creatinine 23 Above high normal MEDGEN (St Ratio Dony's [facility], ) Sodium 143 Normal (applies MEDGEN (St [Moles/volume] mmol/L to non-numeric Dony's in Serum or results) Medical, ) Plasma Chloride 106 Normal (applies MEDGEN (St [Moles/volume] mmol/L to non-numeric Dony's in Serum or results) Medical, ) Plasma Potassium 5.4 Above high normal MEDGEN (St [Mass/volume] mmol/L Dony's in Blood [facility], ) Calcium 9.4 mg/dL Normal (applies MEDGEN (St [Moles/volume] to non-numeric Dony's in Urine results) Medical, ) collected for unspecified duration Carbon dioxide, 20 mmol/L Normal (applies MEDGEN ( St total to non-numeric Dony's [Moles/volume] results) Medical, ) in Serum or Plasma Glucose 238 mg/dL Above high normal MEDGEN (St [Mass/volume] Dony's in Urine [facility], ) collected for unspecified duration Urea nitrogen 21 mg/dL Normal (applies MEDGEN (St [Mass/volume] to non-numeric Dony's in Serum or results) Medical, ) Plasma eGFR If 74 Normal (applies MEDGEN (St NonAfricn Am mL/min/1. to non-numeric Dony's 73 results) Medical, ) Creatinine 1.13 Normal (applies MEDGEN (St [Interpretation mg/dL to non-numeric Dony's ] in Urine results) Medical, ) eGFR If Africn 85 Normal (applies MEDGEN (S t Am mL/min/1. to non-numeric Dony's 73 results) Medical, ) BUN/Creatinine 19 Normal (applies MEDGEN (S t Ratio to non-numeric Dony's results) Medical, ) Sodium 140 Normal (applies MEDGEN (St [Moles/volume] mmol/L to non-numeric Dony's in Serum or results) Medical, ) Plasma Potassium 4.5 Normal (applies MEDGEN (St [Mass/volume] mmol/L to non-numeric Dony's in Blood results) Medical, ) Chloride 103 Normal (applies MEDGEN (St [Moles/volume] mmol/L to non-numeric Dony's in Serum or results) Medical, ) Plasma Carbon dioxide, 19 mmol/L Below low normal MEDGEN (St total Dony's [Moles/volume] Medical, ) in Serum or Plasma Calcium 9.8 mg/dL Normal (applies MEDGEN (St [Moles/volume] to non-numeric Dony's in Urine results) [facility], ) collected for unspecified duration Glucose 320 mg/dL Above high normal MEDGEN (St [Mass/volume] Dony's in Urine [facility], ) collected for unspecified duration Urea nitrogen 28 mg/dL Above high normal MEDGEN ( St [Mass/volume] Dony's in Serum or [facility], ) Plasma eGFR If 57 Below low normal MEDGEN (St NonAfricn Am mL/min/1. Dony's 73 [facility], ) Creatinine 1.40 Above high normal MEDGEN (St [Interpretation mg/dL Dony's ] in Urine [facility], ) eGFR If Africn 65 Normal (applies MEDGEN (S t Am mL/min/1. to non-numeric Dony's 73 results) [facility]) BUN/Creatinine 20 Normal (applies MEDGEN (S t Ratio to non-numeric Dony's results) [facility]) Potassium 4.3 Normal (applies MEDGEN (St [Mass/volume] mmol/L to non-numeric Dony's in Blood results) [facility]) Sodium 141 Normal (applies MEDGEN (St [Moles/volume] mmol/L to non-numeric Dony's in Serum or results) [facility]) Plasma Chloride 103 Normal (applies MEDGEN (St [Moles/volume] mmol/L to non-numeric Dony's in Serum or results) [facility]) Plasma Carbon dioxide, 22 mmol/L Normal (applies MEDGEN ( St total to non-numeric Dony's [Moles/volume] results) [facility]) in Serum or Plasma Calcium 8.9 mg/dL Normal (applies MEDGEN (St [Moles/volume] to non-numeric Dony's in Urine results) [facility]) collected for unspecified duration ID Date Data Source [id number] 12/31/2018 12:00:00 AM EDT MEDGEN (St [place] [facility], ) Name Value Range Interpretation Code Description Data Kimberly rce(s) Supporting Document(s ) ID Date Data Source [id number] 12/31/2018 12:00:00 AM EDT MEDGEN (St [place] [facility], ) Name Value Range Interpretation Code Description Data Kimberly rce(s) Supporting Document(s ) PDF Image . Normal (applies to MEDGEN (St non-numeric results) [facility], ) ID Date Data Source [id number] 12/31/2018 12:00:00 AM EDT MEDGEN ([facility], ) Name Value Range Interpretation Description Data Sup porting Code Source(s) Document(s ) Vitamin B12 503 pg/mL Normal (applies to MEDGEN (S t non-numeric Dony's results) [facility], ) ID Date Data Source [id number] 12/31/2018 12:00:00 AM EDT MEDGEN ([facility], ) Name Value Range Interpretation Code Description Data Kimberly rce(s) Supporting Document(s ) RPR Non Reactive Normal (applies to MEDGEN ( St non-numeric Dony's results) [facility], ) ID Date Data Source [id number] 12/31/2018 12:00:00 AM EDT MED[facility] ([facility], ) Name Value Range Interpretation Code Description Data Kimberly rce(s) Supporting Document(s ) TSH 2.330 Normal (applies to MEDGEN (St uIU/mL non-numeric results) Dony[facility], ) ID Date Data Source [id number] 12/31/2018 12:00:00 AM EDT MEDGEN ([facility], ) Name Value Range Interpretation Description Data Sup porting Code Source(s) Document(s ) Glucose 88 mg/dL Normal (applies MEDGEN (St [Mass/volume] to non-numeric Dony's in Urine results) [facility], ) collected for unspecified duration Urea nitrogen 33 mg/dL Above high normal MEDGEN ( St [Mass/volume] Dony's in Serum or Medical, ) Plasma Creatinine 1.45 Above high normal MEDGEN (St [Interpretation mg/dL Dony's ] in Urine [facility], ) eGFR If Africn 63 Normal (applies MEDGEN (S t Am mL/min/1. to non-numeric Dony's 73 results) [facility], ) eGFR If 55 Below low normal MEDGEN (St NonAfricn Am mL/min/1. Dony's 73 [facility], ) BUN/Creatinine 23 Above high normal MEDGEN (St Ratio Dony's [facility], ) Sodium 143 Normal (applies MEDGEN (St [Moles/volume] mmol/L to non-numeric Dony's in Serum or results) Medical, ) Plasma Potassium 5.4 Above high normal MEDGEN (St [Mass/volume] mmol/L Dony's in Blood Medical, ) Chloride 106 Normal (applies MEDGEN (St [Moles/volume] mmol/L to non-numeric Dony's in Serum or results) Medical, ) Plasma Carbon dioxide, 20 mmol/L Normal (applies MEDGEN ( St total to non-numeric Dnoy's [Moles/volume] results) [facility], ) in Serum or Plasma Calcium 9.4 mg/dL Normal (applies MEDGEN (St [Moles/volume] to non-numeric Dony's in Urine results) [facility], ) collected for unspecified duration ID Date Data Source [id number] 12/31/2018 12:00:00 AM EDT MEDGEN ([facility], ) Name Value Range Interpretation Code Description Data Kimberly rce(s) Supporting Document(s ) ID Date Data Source [id number] 12/31/2018 12:00:00 AM EDT MEDGEN ([facility], ) Name Value Range Interpretation Code Description Data Kimberly rce(s) Supporting Document(s ) PDF Image . Normal (applies to MEDGEN (St non-numeric results) [facility], ) ID Date Data Source [id number] 12/31/2018 12:00:00 AM EDT MEDGEN ([facility] [place], ) Name Value Range Interpretation Description Data Sup porting Code Source(s) Document(s ) Vitamin B12 503 pg/mL Normal (applies to MEDGEN (S t non-numeric Dony's results) [facility], ) ID Date Data Source [id number] 12/31/2018 12:00:00 AM EDT MEDGEN ([facility], ) Name Value Range Interpretation Code Description Data Kimberly rce(s) Supporting Document(s ) RPR Non Reactive Normal (applies to MEDGEN ( St non-numeric Dony's results) [facility], ) ID Date Data Source [id number] 12/31/2018 12:00:00 AM EDT MEDGEN ([facility], ) Name Value Range Interpretation Code Description Data Kimberly rce(s) Supporting Document(s ) TSH 2.330 Normal (applies to MEDGEN (St uIU/mL non-numeric results) [facility]) ID Date Data Source [id number] 12/31/2018 12:00:00 AM EDT [facility] ([facility], ) Name Value Range Interpretation Description Data Sup porting Code Source(s) Document(s ) Glucose 88 mg/dL Normal (applies MEDGEN (St [Mass/volume] to non-numeric Dony's in Urine results) [facility], ) collected for unspecified duration Urea nitrogen 33 mg/dL Above high normal MEDGEN ( St [Mass/volume] Dony's in Serum or Medical, ) Plasma Creatinine 1.45 Above high normal MEDGEN (St [Interpretation mg/dL Dony's ] in Urine [facility], ) eGFR If 55 Below low normal MEDGEN (St NonAfricn Am mL/min/1. Dony's 73 [facility], ) eGFR If Africn 63 Normal (applies MEDGEN (S t Am mL/min/1. to non-numeric Dony's 73 results) [facility], ) Sodium 143 Normal (applies MEDGEN (St [Moles/volume] mmol/L to non-numeric Dony's in Serum or results) [facility], ) Plasma BUN/Creatinine 23 Above high normal MEDGEN (St Ratio Dony's [facility], ) Potassium 5.4 Above high normal MEDGEN (St [Mass/volume] mmol/L Dony's in Blood [facility], ) Chloride 106 Normal (applies MEDGEN (St [Moles/volume] mmol/L to non-numeric Dony's in Serum or results) [facility], ) Plasma Carbon dioxide, 20 mmol/L Normal (applies MEDGEN ( St total to non-numeric Dony's [Moles/volume] results) [facility], ) in Serum or Plasma Calcium 9.4 mg/dL Normal (applies MEDGEN (St [Moles/volume] to non-numeric Dony's in Urine results) [facility], ) collected for unspecified duration ID Date Data Source [id number] 12/31/2018 12:00:00 AM EDT [facility] ([facility], ) Name Value Range Interpretation Code Description Data Kimberly rce(s) Supporting Document(s ) ID Date Data Source [id number] 12/31/2018 12:00:00 AM EDT [facility] ([facility], ) Name Value Range Interpretation Code Description Data Kimberly rce(s) Supporting Document(s ) PDF Image . Normal (applies to MEDGEN (St non-numeric results) [facility], ) ID Date Data Source [id number] 12/31/2018 12:00:00 AM EDT MEDGEN ([facility], ) Name Value Range Interpretation Description Data Sup porting Code Source(s) Document(s ) Vitamin B12 503 pg/mL Normal (applies to MEDGEN (S t non-numeric Dony's results) [facility], ) ID Date Data Source [id number] 12/31/2018 12:00:00 AM EDT MEDGEN ([facility], ) Name Value Range Interpretation Code Description Data Kimberly rce(s) Supporting Document(s ) RPR Non Reactive Normal (applies to MEDGEN ( St non-numeric Dony's results) [facility], ) ID Date Data Source [id number] 12/31/2018 12:00:00 AM EDT MEDGEN ([facility], ) Name Value Range Interpretation Code Description Data Kimberly rce(s) Supporting Document(s ) TSH 2.330 Normal (applies to MEDGEN (St uIU/mL non-numeric results) Dony[facility], ) ID Date Data Source [id number] 12/31/2018 12:00:00 AM EDT MEDGEN ([facility], ) Name Value Range Interpretation Description Data Sup porting Code Source(s) Document(s ) Glucose 88 mg/dL Normal (applies MEDGEN (St [Mass/volume] to non-numeric Dony's in Urine results) [facility], ) collected for unspecified duration Urea nitrogen 33 mg/dL Above high normal MEDGEN ( St [Mass/volume] Dony's in Serum or Medical, ) Plasma Creatinine 1.45 Above high normal MEDGEN (St [Interpretation mg/dL Dony's ] in Urine [facility], ) eGFR If 55 Below low normal MEDGEN (St NonAfricn Am mL/min/1. Dony's 73 [facility], ) eGFR If Africn 63 Normal (applies MEDGEN (S t Am mL/min/1. to non-numeric Dony's 73 results) [facility], ) BUN/Creatinine 23 Above high normal MEDGEN (St Ratio Dony's [facility], ) Sodium 143 Normal (applies MEDGEN (St [Moles/volume] mmol/L to non-numeric Dony's in Serum or results) [facility], ) Plasma Chloride 106 Normal (applies MEDGEN (St [Moles/volume] mmol/L to non-numeric Dony's in Serum or results) [facility], ) Plasma Potassium 5.4 Above high normal MEDGEN (St [Mass/volume] mmol/L Dony's in Blood [facility], ) Carbon dioxide, 20 mmol/L Normal (applies MEDGEN ( St total to non-numeric Dony's [Moles/volume] results) [facility]) in Serum or Plasma Calcium 9.4 mg/dL Normal (applies MEDGEN (St [Moles/volume] to non-numeric Dony's in Urine results) [facility], ) collected for unspecified duration ID Date Data Source [id number] 12/31/2018 12:00:00 AM EDT MEDGEN ([facility], ) Name Value Range Interpretation Code Description Data Kimberly rce(s) Supporting Document(s ) PDF Image . Normal (applies to MEDGEN (St non-numeric results) [facility], ) ID Date Data Source [id number] 12/31/2018 12:00:00 AM EDT MEDGEN ([facility] [place], ) Name Value Range Interpretation Description Data Sup porting Code Source(s) Document(s ) Vitamin B12 503 pg/mL Normal (applies to MEDGEN (S t non-numeric Dony's results) [facility], ) ID Date Data Source [id number] 12/31/2018 12:00:00 AM EDT MEDGEN ([facility] [place], ) Name Value Range Interpretation Code Description Data Kimberly rce(s) Supporting Document(s ) RPR Non Reactive Normal (applies to MEDGEN ( St non-numeric Dony's results) [facility]) ID Date Data Source [id number] 12/31/2018 12:00:00 AM EDT MEDGEN ([facility] [place], ) Name Value Range Interpretation Code Description Data Kimberly rce(s) Supporting Document(s ) TSH 2.330 Normal (applies to MEDGEN (St uIU/mL non-numeric results) [facility], ) ID Date Data Source [id number] 12/31/2018 12:00:00 AM EDT [facility] ([facility], ) Name Value Range Interpretation Code Description Data Kimberly rce(s) Supporting Document(s ) ID Date Data Source [id number] 12/31/2018 12:00:00 AM EDT [facility] ([facility]) Name Value Range Interpretation Code Description Data Kimberly rce(s) Supporting Document(s ) PDF Image . Normal (applies to MEDGEN (St non-numeric results) [facility]) ID Date Data Source [id number] 12/31/2018 12:00:00 AM EDT [facility] ([facility]) Name Value Range Interpretation Description Data Sup porting Code Source(s) Document(s ) Vitamin B12 503 pg/mL Normal (applies to MEDGEN (S t non-numeric Dony's results) Medical, ) ID Date Data Source [id number] 12/31/2018 12:00:00 AM EDT [facility] ([facility]) Name Value Range Interpretation Code Description Data Kimberly rce(s) Supporting Document(s ) RPR Non Reactive Normal (applies to MEDGEN ( St non-numeric Dony's results) Medical, ) ID Date Data Source [id number] 12/31/2018 12:00:00 AM EDT [facility] ([facility]) Name Value Range Interpretation Code Description Data Kimberly rce(s) Supporting Document(s ) TSH 2.330 Normal (applies to MEDGEN (St uIU/mL non-numeric results) [facility]) ID Date Data Source [id number] 12/31/2018 12:00:00 AM EDT [facility] ([facility], ) Name Value Range Interpretation Description Data Sup porting Code Source(s) Document(s ) Glucose 88 mg/dL Normal (applies MEDGEN (St [Mass/volume] to non-numeric Dony's in Urine results) Medical, ) collected for unspecified duration Creatinine 1.45 Above high normal MEDGEN (St [Interpretation mg/dL Dony's ] in Urine Medical, ) Urea nitrogen 33 mg/dL Above high normal MEDGEN ( St [Mass/volume] Dony's in Serum or Medical, ) Plasma eGFR If 55 Below low normal MEDGEN (St NonAfricn Am mL/min/1. Dony's 73 [facility], ) BUN/Creatinine 23 Above high normal MEDGEN (St Ratio [facility], ) eGFR If Africn 63 Normal (applies MEDGEN (S t Am mL/min/1. to non-numeric Dony's 73 results) Medical, ) Sodium 143 Normal (applies MEDGEN (St [Moles/volume] mmol/L to non-numeric Dony's in Serum or results) Medical, ) Plasma Potassium 5.4 Above high normal MEDGEN (St [Mass/volume] mmol/L Dony's in Blood Medical, ) Chloride 106 Normal (applies MEDGEN (St [Moles/volume] mmol/L to non-numeric Dony's in Serum or results) Medical, ) Plasma Carbon dioxide, 20 mmol/L Normal (applies MEDGEN ( St total to non-numeric Dony's [Moles/volume] results) [facility], ) in Serum or Plasma Calcium 9.4 mg/dL Normal (applies MEDGEN (St [Moles/volume] to non-numeric Dony's in Urine results) Medical, ) collected for unspecified duration ID Date Data Source [id number] 12/31/2018 12:00:00 AM EDT MED[facility] ([facility] [place], ) Name Value Range Interpretation Code Description Data Kimberly rce(s) Supporting Document(s ) ID Date Data Source [id number] 12/31/2018 12:00:00 AM EDT MEDGEN ([facility], ) Name Value Range Interpretation Code Description Data Kimberly rce(s) Supporting Document(s ) PDF Image . Normal (applies to MEDGEN (St non-numeric results) [facility]ony[facility], ) ID Date Data Source [id number] 12/31/2018 12:00:00 AM EDT MEDGEN ([facility] [place], ) Name Value Range Interpretation Description Data Sup porting Code Source(s) Document(s ) Vitamin B12 503 pg/mL Normal (applies to MEDGEN (S t non-numeric Dony's results) [facility], ) ID Date Data Source [id number] 12/31/2018 12:00:00 AM EDT MEDGEN ([facility] [place] [facility], ) Name Value Range Interpretation Code Description Data Kimberly rce(s) Supporting Document(s ) RPR Non Reactive Normal (applies to MEDGEN ( St non-numeric Dony's results) [facility], ) ID Date Data Source [id number] 12/31/2018 12:00:00 AM EDT [facility] ([facility], ) Name Value Range Interpretation Code Description Data Kimberly rce(s) Supporting Document(s ) TSH 2.330 Normal (applies to MEDGEN (St uIU/mL non-numeric results) Dony's [facility]) ID Date Data Source [id number] 12/31/2018 12:00:00 AM EDT MEDGEN ([facility], ) Name Value Range Interpretation Description Data Sup porting Code Source(s) Document(s ) Glucose 88 mg/dL Normal (applies MEDGEN (St [Mass/volume] to non-numeric Dony's in Urine results) [facility], ) collected for unspecified duration Urea nitrogen 33 mg/dL Above high normal MEDGEN ( St [Mass/volume] Dony's in Serum or [facility], ) Plasma Creatinine 1.45 Above high normal MEDGEN (St [Interpretation mg/dL Dony's ] in Urine [facility], ) eGFR If 55 Below low normal MEDGEN (St NonAfricn Am mL/min/1. Dony's 73 [facility], ) eGFR If Africn 63 Normal (applies MEDGEN (S t Am mL/min/1. to non-numeric Dony's 73 results) [facility], ) BUN/Creatinine 23 Above high normal MEDGEN (St Ratio Dony's [facility], ) Potassium 5.4 Above high normal MEDGEN (St [Mass/volume] mmol/L Dony's in Blood [facility], ) Sodium 143 Normal (applies MEDGEN (St [Moles/volume] mmol/L to non-numeric Dony's in Serum or results) Medical, ) Plasma Chloride 106 Normal (applies MEDGEN (St [Moles/volume] mmol/L to non-numeric Dony's in Serum or results) Medical, ) Plasma Carbon dioxide, 20 mmol/L Normal (applies MEDGEN ( St total to non-numeric Dony's [Moles/volume] results) [facility], ) in Serum or Plasma Calcium 9.4 mg/dL Normal (applies MEDGEN (St [Moles/volume] to non-numeric Dony's in Urine results) [facility], ) collected for unspecified duration ID Date Data Source [id number] 12/31/2018 12:00:00 AM EDT MED[facility] ([facility], ) Name Value Range Interpretation Code Description Data Kimberly rce(s) Supporting Document(s ) ID Date Data Source [id number] 12/31/2018 12:00:00 AM EDT MEDGEN ([facility], ) Name Value Range Interpretation Code Description Data Kimberly rce(s) Supporting Document(s ) PDF Image . Normal (applies to MEDGEN (St non-numeric results) [facility]ony[facility], ) ID Date Data Source [id number] 12/31/2018 12:00:00 AM EDT MED[facility] ([facility], ) Name Value Range Interpretation Description Data Sup porting Code Source(s) Document(s ) Vitamin B12 503 pg/mL Normal (applies to MEDGEN (S t non-numeric Dony's results) [facility], ) ID Date Data Source [id number] 12/31/2018 12:00:00 AM EDT MED[facility] ([facility], ) Name Value Range Interpretation Code Description Data Kimberly rce(s) Supporting Document(s ) RPR Non Reactive Normal (applies to MEDGEN ( St non-numeric Dony's results) [facility], ) ID Date Data Source [id number] 12/31/2018 12:00:00 AM EDT MEDGEN ([facility], ) Name Value Range Interpretation Description Data Sup porting Code Source(s) Document(s ) Urea nitrogen 25 mg/dL Above high MEDGEN (St [Mass/volume] in normal Dony's Serum or Plasma [facility], ) Creatinine 2.31 Above high MEDGEN (St [Interpretation] in mg/dL normal Dony's Urine [facility], ) eGFR If NonAfricn 31 Below low normal MEDGE N (St Am mL/min/1 [facility]'s [address] [place] [address], ) eGFR If Africn Am 36 Below low normal MEDGE N (St mL/min/1 [facility]'s 73 [facility], ) BUN/Creatinine 11 Normal (applies MEDGEN (S t Ratio to non-numeric Dony's results) [facility], ) Sodium 144 Normal (applies MEDGEN (St [Moles/volume] in mmol/L to non-numeric Dony's Serum or Plasma results) [facility], ) Potassium 3.7 Normal (applies MEDGEN (St [Mass/volume] in mmol/L to non-numeric Dony's Blood results) Medical, PC) Chloride 112 Above high MEDGEN (St [Moles/volume] in mmol/L normal Dony's Serum or Plasma Medical, ) Carbon dioxide, 19 Below low normal MEDGEN (St total mmol/L Dony's [Moles/volume] in Medical, Serum or Plasma PC) Calcium 8.7 Normal (applies MEDGEN (St [Moles/volume] in mg/dL to non-numeric Dony's Urine collected for results) Medical, unspecified PC) duration Protein 5.7 g/dL Below low normal MEDGEN (St [Mass/volume] in Dony's Serum or Plasma Medical, ) Microalbumin 3.6 g/dL Below low normal MEDGEN (St [Mass/time] in Dony's Urine collected for Medical, unspecified PC) duration Globulin, Total 2.1 g/dL Normal (applies MEDGEN ( St to non-numeric Dony's results) Medical, ) A/G Ratio 1.7 Normal (applies MEDGEN (St to non-numeric Dony's results) Medical, ) Alkaline 140 IU/L Above high MEDGEN (St phosphatase normal Dony's [Enzymatic Medical, activity/volume] in PC) Serum, Plasma or Blood Bilirubin.total <0.2 Normal (applies MEDGEN ( St [Mass/volume] in to non-numeric Dony's Serum or Plasma results) Medical, ) Aspartate 17 IU/L Normal (applies MEDGEN (St aminotransferase to non-numeric Dony's [Enzymatic results) Medical, activity/volume] in PC) Serum or Plasma Alanine 20 IU/L Normal (applies MEDGEN (St aminotransferase to non-numeric Dony's [Enzymatic results) Medical, activity/volume] in PC) Serum or Plasma TSH 2.330 Normal (applies MEDGEN (St uIU/mL to non-numeric Dony's results) Medical, ) ID Date Data Source [id number] 12/31/2018 12:00:00 AM EDT MEDGEN ([facility], ) Name Value Range Interpretation Description Data Sup porting Code Source(s) Document(s ) Glucose 88 mg/dL Normal (applies MEDGEN (St [Mass/volume] to non-numeric Dony's in Urine results) Medical, ) collected for unspecified duration Urea nitrogen 33 mg/dL Above high normal MEDGEN ( St [Mass/volume] Dony's in Serum or Medical, PC) Plasma Creatinine 1.45 Above high normal MEDGEN (St [Interpretation mg/dL Dony's ] in Urine [facility], ) eGFR If Africn 63 Normal (applies MEDGEN (S t Am mL/min/1. to non-numeric Dony's 73 results) [facility], ) eGFR If 55 Below low normal MEDGEN (St NonAfricn Am mL/min/1. Dony's 73 [facility], ) BUN/Creatinine 23 Above high normal MEDGEN (St Ratio Dony's [facility], ) Sodium 143 Normal (applies MEDGEN (St [Moles/volume] mmol/L to non-numeric Dony's in Serum or results) [facility], ) Plasma Potassium 5.4 Above high normal MEDGEN (St [Mass/volume] mmol/L Dony's in Blood [facility], ) Chloride 106 Normal (applies MEDGEN (St [Moles/volume] mmol/L to non-numeric Dony's in Serum or results) [facility], ) Plasma Carbon dioxide, 20 mmol/L Normal (applies MEDGEN ( St total to non-numeric Dony's [Moles/volume] results) [facility], ) in Serum or Plasma Calcium 9.4 mg/dL Normal (applies MEDGEN (St [Moles/volume] to non-numeric Dony's in Urine results) [facility], ) collected for unspecified duration ID Date Data Source [id number] 12/31/2018 12:00:00 AM EDT MEDGEN ([facility], ) Name Value Range Interpretation Code Description Data Kimberly rce(s) Supporting Document(s ) ID Date Data Source [id number] 12/31/2018 12:00:00 AM EDT MEDGEN ([facility], ) Name Value Range Interpretation Code Description Data Kimberly rce(s) Supporting Document(s ) PDF Image . Normal (applies to MEDGEN (St non-numeric results) Dony's [facility]) ID Date Data Source [id number] 12/31/2018 12:00:00 AM EDT MEDGEN ([facility], ) Name Value Range Interpretation Description Data Sup porting Code Source(s) Document(s ) Vitamin B12 503 pg/mL Normal (applies to MEDGEN (S t non-numeric Dony's results) [facility], ) ID Date Data Source [id number] 12/31/2018 12:00:00 AM EDT MEDGEN ([facility], ) Name Value Range Interpretation Code Description Data Kimberly rce(s) Supporting Document(s ) RPR Non Reactive Normal (applies to MEDGEN ( St non-numeric Dony's results) [facility], ) ID Date Data Source [id number] 12/31/2018 12:00:00 AM EDT MEDGEN ([facility] [place] [facility], ) Name Value Range Interpretation Code Description Data Kimberly rce(s) Supporting Document(s ) TSH 2.330 Normal (applies to MEDGEN (St uIU/mL non-numeric results) Dony[facility], ) ID Date Data Source [id number] 12/31/2018 12:00:00 AM EDT MEDGEN ([facility], ) Name Value Range Interpretation Description Data Sup porting Code Source(s) Document(s ) Glucose 88 mg/dL Normal (applies MEDGEN (St [Mass/volume] to non-numeric Dony's in Urine results) [facility], ) collected for unspecified duration Urea nitrogen 33 mg/dL Above high normal MEDGEN ( St [Mass/volume] Dony's in Serum or Medical, ) Plasma Creatinine 1.45 Above high normal MEDGEN (St [Interpretation mg/dL Dony's ] in Urine [facility], ) eGFR If 55 Below low normal MEDGEN (St NonAfricn Am mL/min/1. Dony's 73 [facility], ) BUN/Creatinine 23 Above high normal MEDGEN (St Ratio Dony's [facility], ) eGFR If Africn 63 Normal (applies MEDGEN (S t Am mL/min/1. to non-numeric Dony's 73 results) [facility], ) Sodium 143 Normal (applies MEDGEN (St [Moles/volume] mmol/L to non-numeric Dony's in Serum or results) [facility], ) Plasma Potassium 5.4 Above high normal MEDGEN (St [Mass/volume] mmol/L Dony's in Blood [facility], ) Carbon dioxide, 20 mmol/L Normal (applies MEDGEN ( St total to non-numeric Dony's [Moles/volume] results) [facility], ) in Serum or Plasma Chloride 106 Normal (applies MEDGEN (St [Moles/volume] mmol/L to non-numeric Dony's in Serum or results) [facility], ) Plasma Calcium 9.4 mg/dL Normal (applies MEDGEN (St [Moles/volume] to non-numeric Dony's in Urine results) [facility], ) collected for unspecified duration ID Date Data Source [id number] 12/31/2018 12:00:00 AM EDT MEDGEN ([facility], ) Name Value Range Interpretation Code Description Data Kimberly rce(s) Supporting Document(s ) ID Date Data Source [id number] 12/31/2018 12:00:00 AM EDT MEDGEN ([facility], ) Name Value Range Interpretation Code Description Data Kimberly rce(s) Supporting Document(s ) PDF Image . Normal (applies to MEDGEN (St non-numeric results) [facility]ony[facility], ) ID Date Data Source [id number] 12/31/2018 12:00:00 AM EDT MEDGEN ([facility], ) Name Value Range Interpretation Description Data Sup porting Code Source(s) Document(s ) Vitamin B12 503 pg/mL Normal (applies to MEDGEN (S t non-numeric Dony's results) [facility], ) ID Date Data Source [id number] 12/31/2018 12:00:00 AM EDT MEDGEN ([facility], ) Name Value Range Interpretation Code Description Data Kimberly rce(s) Supporting Document(s ) RPR Non Reactive Normal (applies to MEDGEN ( St non-numeric Dony's results) [facility], ) ID Date Data Source [id number] 12/31/2018 12:00:00 AM EDT MEDGEN ([facility], ) Name Value Range Interpretation Code Description Data Kimberly rce(s) Supporting Document(s ) TSH 2.330 Normal (applies to MEDGEN (St uIU/mL non-numeric results) [facility], ) ID Date Data Source [id number] 12/31/2018 12:00:00 AM EDT MEDGEN ([facility], ) Name Value Range Interpretation Description Data Sup porting Code Source(s) Document(s ) Glucose 88 mg/dL Normal (applies MEDGEN (St [Mass/volume] to non-numeric Dony's in Urine results) [facility], ) collected for unspecified duration Urea nitrogen 33 mg/dL Above high normal MEDGEN ( St [Mass/volume] Dony's in Serum or Medical, ) Plasma eGFR If 55 Below low normal MEDGEN (St NonAfricn Am mL/min/1. Dony's 73 [facility], ) Creatinine 1.45 Above high normal MEDGEN (St [Interpretation mg/dL Dony's ] in Urine [facility], ) eGFR If Africn 63 Normal (applies MEDGEN (S t Am mL/min/1. to non-numeric Dony's 73 results) Medical, ) Sodium 143 Normal (applies MEDGEN (St [Moles/volume] mmol/L to non-numeric Dony's in Serum or results) [facility], ) Plasma BUN/Creatinine 23 Above high normal MEDGEN (St Ratio Dony's [facility], ) Potassium 5.4 Above high normal MEDGEN (St [Mass/volume] mmol/L Dony's in Blood [facility], ) Carbon dioxide, 20 mmol/L Normal (applies MEDGEN ( St total to non-numeric Dony's [Moles/volume] results) [facility], ) in Serum or Plasma Chloride 106 Normal (applies MEDGEN (St [Moles/volume] mmol/L to non-numeric Dony's in Serum or results) [facility], ) Plasma Calcium 9.4 mg/dL Normal (applies MEDGEN (St [Moles/volume] to non-numeric Dony's in Urine results) [facility], ) collected for unspecified duration ID Date Data Source [id number] 12/31/2018 12:00:00 AM EDT MEDGEN ([facility], ) Name Value Range Interpretation Code Description Data Kimberly rce(s) Supporting Document(s ) ID Date Data Source [id number] 12/31/2018 12:00:00 AM EDT MEDGEN ([facility], ) Name Value Range Interpretation Code Description Data Kimberly rce(s) Supporting Document(s ) PDF Image . Normal (applies to MEDGEN (St non-numeric results) Dony's [facility]) ID Date Data Source [id number] 12/31/2018 12:00:00 AM EDT MEDGEN ([facility], ) Name Value Range Interpretation Description Data Sup porting Code Source(s) Document(s ) Vitamin B12 503 pg/mL Normal (applies to MEDGEN (S t non-numeric Dony's results) [facility], ) ID Date Data Source [id number] 12/31/2018 12:00:00 AM EDT MEDGEN ([facility], ) Name Value Range Interpretation Code Description Data Kimberly rce(s) Supporting Document(s ) RPR Non Reactive Normal (applies to MEDGEN ( St non-numeric Dony's results) [facility], ) ID Date Data Source [id number] 12/31/2018 12:00:00 AM EDT MEDGEN ([facility], ) Name Value Range Interpretation Code Description Data Kimberly rce(s) Supporting Document(s ) TSH 2.330 Normal (applies to MEDGEN (St uIU/mL non-numeric results) Dony's [facility], ) ID Date Data Source [id number] 12/31/2018 12:00:00 AM EDT MEDGEN ( [place] [facility], ) Name Value Range Interpretation Description Data Sup porting Code Source(s) Document(s ) Glucose 88 mg/dL Normal (applies MEDGEN (St [Mass/volume] to non-numeric Dony's in Urine results) [facility], ) collected for unspecified duration Urea nitrogen 33 mg/dL Above high normal MEDGEN ( St [Mass/volume] Dony's in Serum or Medical, ) Plasma eGFR If 55 Below low normal MEDGEN (St NonAfricn Am mL/min/1. Dony's 73 [facility], ) Creatinine 1.45 Above high normal MEDGEN (St [Interpretation mg/dL Dony's ] in Urine [facility], ) eGFR If Africn 63 Normal (applies MEDGEN (S t Am mL/min/1. to non-numeric Dony's 73 results) [facility], ) BUN/Creatinine 23 Above high normal MEDGEN (St Ratio Dony's [facility], ) Sodium 143 Normal (applies MEDGEN (St [Moles/volume] mmol/L to non-numeric Dony's in Serum or results) Medical, ) Plasma Chloride 106 Normal (applies MEDGEN (St [Moles/volume] mmol/L to non-numeric Dony's in Serum or results) Medical, ) Plasma Potassium 5.4 Above high normal MEDGEN (St [Mass/volume] mmol/L Dony's in Blood [facility], ) Carbon dioxide, 20 mmol/L Normal (applies MEDGEN ( St total to non-numeric Dony's [Moles/volume] results) Medical, ) in Serum or Plasma Calcium 9.4 mg/dL Normal (applies MEDGEN (St [Moles/volume] to non-numeric Dony's in Urine results) Medical, ) collected for unspecified duration ID Date Data Source [id number] 12/31/2018 12:00:00 AM EDT MEDGEN ([facility], ) Name Value Range Interpretation Code Description Data Kimberly rce(s) Supporting Document(s ) ID Date Data Source [id number] 12/31/2018 12:00:00 AM EDT MEDGEN ([facility], ) Name Value Range Interpretation Code Description Data Kimberly rce(s) Supporting Document(s ) PDF Image . Normal (applies to MEDGEN (St non-numeric results) [facility]ony[facility], ) ID Date Data Source [id number] 12/31/2018 12:00:00 AM EDT MEDGEN ([facility], ) Name Value Range Interpretation Description Data Sup porting Code Source(s) Document(s ) Vitamin B12 503 pg/mL Normal (applies to MEDGEN (S t non-numeric Dony's results) Medical, ) ID Date Data Source [id number] 12/31/2018 12:00:00 AM EDT MEDGEN ([facility], ) Name Value Range Interpretation Code Description Data Kimberly rce(s) Supporting Document(s ) RPR Non Reactive Normal (applies to MEDGEN ( St non-numeric Dony's results) [facility], ) ID Date Data Source [id number] 12/31/2018 12:00:00 AM EDT MEDGEN ([facility], ) Name Value Range Interpretation Code Description Data Kimberly rce(s) Supporting Document(s ) TSH 2.330 Normal (applies to MEDGEN (St uIU/mL non-numeric results) Dony[facility], ) ID Date Data Source [id number] 12/31/2018 12:00:00 AM EDT [facility]GEN ([facility], ) Name Value Range Interpretation Description Data Sup porting Code Source(s) Document(s ) Glucose 88 mg/dL Normal (applies MEDGEN (St [Mass/volume] to non-numeric Dony's in Urine results) Medical, ) collected for unspecified duration Urea nitrogen 33 mg/dL Above high normal MEDGEN ( St [Mass/volume] Dony's in Serum or Medical, ) Plasma Creatinine 1.45 Above high normal MEDGEN (St [Interpretation mg/dL Dony's ] in Urine [facility], ) eGFR If Africn 63 Normal (applies MEDGEN (S t Am mL/min/1. to non-numeric Dony's 73 results) [facility], ) eGFR If 55 Below low normal MEDGEN (St NonAfricn Am mL/min/1. Dony's 73 [facility], ) BUN/Creatinine 23 Above high normal MEDGEN (St Ratio Dony's [facility], ) Sodium 143 Normal (applies MEDGEN (St [Moles/volume] mmol/L to non-numeric Dony's in Serum or results) [facility], ) Plasma Potassium 5.4 Above high normal MEDGEN (St [Mass/volume] mmol/L Dony's in Blood [facility], ) Carbon dioxide, 20 mmol/L Normal (applies MEDGEN ( St total to non-numeric Dony's [Moles/volume] results) [facility], ) in Serum or Plasma Chloride 106 Normal (applies MEDGEN (St [Moles/volume] mmol/L to non-numeric Dony's in Serum or results) [facility], ) Plasma Calcium 9.4 mg/dL Normal (applies MEDGEN (St [Moles/volume] to non-numeric Dony's in Urine results) [facility], ) collected for unspecified duration ID Date Data Source [id number] 12/31/2018 12:00:00 AM EDT [facility]GEN ([facility], ) Name Value Range Interpretation Code Description Data Kimberly rce(s) Supporting Document(s ) ID Date Data Source [id number] 12/31/2018 12:00:00 AM EDT MEDGEN ([facility], ) Name Value Range Interpretation Code Description Data Kimberly rce(s) Supporting Document(s ) PDF Image . Normal (applies to MEDGEN (St non-numeric results) Dony's [facility]) ID Date Data Source [id number] 12/31/2018 12:00:00 AM EDT MEDGEN ([facility], ) Name Value Range Interpretation Description Data Sup porting Code Source(s) Document(s ) Vitamin B12 503 pg/mL Normal (applies to MEDGEN (S t non-numeric Dony's results) [facility], ) ID Date Data Source [id number] 12/31/2018 12:00:00 AM EDT [facility]GEN ([facility], ) Name Value Range Interpretation Code Description Data Kimberly rce(s) Supporting Document(s ) RPR Non Reactive Normal (applies to MEDGEN ( St non-numeric Dony's results) [facility], ) ID Date Data Source [id number] 12/31/2018 12:00:00 AM EDT [facility]GEN ([facility], ) Name Value Range Interpretation Code Description Data Kimberly rce(s) Supporting Document(s ) TSH 2.330 Normal (applies to MEDGEN (St uIU/mL non-numeric results) [facility]'s [facility]) ID Date Data Source [id number] 12/31/2018 12:00:00 AM EDT MEDGEN ([facility], ) Name Value Range Interpretation Description Data Sup porting Code Source(s) Document(s ) Glucose 88 mg/dL Normal (applies MEDGEN (St [Mass/volume] to non-numeric Dony's in Urine results) [facility], ) collected for unspecified duration Urea nitrogen 33 mg/dL Above high normal MEDGEN ( St [Mass/volume] Dony's in Serum or Medical, ) Plasma Creatinine 1.45 Above high normal MEDGEN (St [Interpretation mg/dL Dony's ] in Urine [facility], ) eGFR If 55 Below low normal MEDGEN (St NonAfricn Am mL/min/1. Dony's 73 [facility], ) eGFR If Africn 63 Normal (applies MEDGEN (S t Am mL/min/1. to non-numeric Dony's 73 results) [facility], ) BUN/Creatinine 23 Above high normal MEDGEN (St Ratio Dony's [facility], ) Sodium 143 Normal (applies MEDGEN (St [Moles/volume] mmol/L to non-numeric Dony's in Serum or results) [facility], ) Plasma Potassium 5.4 Above high normal MEDGEN (St [Mass/volume] mmol/L Dony's in Blood [facility], ) Chloride 106 Normal (applies MEDGEN (St [Moles/volume] mmol/L to non-numeric Dony's in Serum or results) [facility], ) Plasma Carbon dioxide, 20 mmol/L Normal (applies MEDGEN ( St total to non-numeric Dony's [Moles/volume] results) [facility], ) in Serum or Plasma Calcium 9.4 mg/dL Normal (applies MEDGEN (St [Moles/volume] to non-numeric Dony's in Urine results) [facility], ) collected for unspecified duration ID Date Data Source [id number] 12/31/2018 12:00:00 AM EDT [facility]GEN ([facility], ) Name Value Range Interpretation Code Description Data Kimberly rce(s) Supporting Document(s ) RPR Non Reactive Normal (applies to MEDGEN ( St non-numeric Dony's results) [facility], ) ID Date Data Source [id number] 12/31/2018 12:00:00 AM EDT MEDGEN ([facility], ) Name Value Range Interpretation Code Description Data Kimberly rce(s) Supporting Document(s ) TSH 2.330 Normal (applies to MEDGEN (St uIU/mL non-numeric results) Dony[facility], ) ID Date Data Source [id number] 12/31/2018 12:00:00 AM EDT MEDGEN ( [facility] [facility], ) Name Value Range Interpretation Description Data Sup porting Code Source(s) Document(s ) Glucose 88 mg/dL Normal (applies MEDGEN (St [Mass/volume] to non-numeric Dony's in Urine results) [facility], ) collected for unspecified duration Urea nitrogen 33 mg/dL Above high normal MEDGEN ( St [Mass/volume] Dony's in Serum or Medical, ) Plasma Creatinine 1.45 Above high normal MEDGEN (St [Interpretation mg/dL Dony's ] in Urine [facility], ) eGFR If 55 Below low normal MEDGEN (St NonAfricn Am mL/min/1. Dony's 73 [facility], ) eGFR If Africn 63 Normal (applies MEDGEN (S t Am mL/min/1. to non-numeric Dony's 73 results) [facility], ) Sodium 143 Normal (applies MEDGEN (St [Moles/volume] mmol/L to non-numeric Dony's in Serum or results) [facility], ) Plasma BUN/Creatinine 23 Above high normal MEDGEN (St Ratio [facility], ) Potassium 5.4 Above high normal MEDGEN (St [Mass/volume] mmol/L Dony's in Blood Medical, ) Chloride 106 Normal (applies MEDGEN (St [Moles/volume] mmol/L to non-numeric Dony's in Serum or results) Medical, ) Plasma Carbon dioxide, 20 mmol/L Normal (applies MEDGEN ( St total to non-numeric Dony's [Moles/volume] results) Medical, ) in Serum or Plasma Calcium 9.4 mg/dL Normal (applies MED[facility] (St [Moles/volume] to non-numeric Dony's in Urine results) [facility], ) collected for unspecified duration ID Date Data Source [id number] 12/31/2018 12:00:00 AM EDT [facility] ([facility], ) Name Value Range Interpretation Code Description Data Kimberly rce(s) Supporting Document(s ) PDF Image . Normal (applies to MEDGEN (St non-numeric results) Dony's Me [facility]) ID Date Data Source [id number] 12/31/2018 12:00:00 AM EDT [facility] ([facility], ) Name Value Range Interpretation Description Data Sup porting Code Source(s) Document(s ) Vitamin B12 503 pg/mL Normal (applies to MEDGEN (S t non-numeric Dony's results) [facility], ) ID Date Data Source [id number] 12/31/2018 12:00:00 AM EDT [facility] ([facility], ) Name Value Range Interpretation Code Description Data Kimberly rce(s) Supporting Document(s ) RPR Non Reactive Normal (applies to MEDGEN ( St non-numeric Dony's results) [facility], ) ID Date Data Source [id number] 12/31/2018 12:00:00 AM EDT [facility] ([facility], ) Name Value Range Interpretation Description Data Sup porting Code Source(s) Document(s ) Glucose 88 mg/dL Normal (applies [facility]GEN (St [Mass/volume] to non-numeric Dony's in Urine results) [facility], ) collected for unspecified duration Urea nitrogen 33 mg/dL Above high normal MEDGEN ( St [Mass/volume] Dony's in Serum or Medical, ) Plasma Creatinine 1.45 Above high normal [facility] (St [Interpretation mg/dL Dony's ] in Urine [facility], ) eGFR If 55 Below low normal MEDGEN (St NonAfricn Am mL/min/1. Dony's 73 [facility], ) eGFR If Africn 63 Normal (applies MEDGEN (S t Am mL/min/1. to non-numeric Dony's 73 results) [facility]) BUN/Creatinine 23 Above high normal [facility] (St Ratio Dony's [facility], ) Sodium 143 Normal (applies [facility] (St [Moles/volume] mmol/L to non-numeric Dony's in Serum or results) [facility]) Plasma Potassium 5.4 Above high normal [facility] (St [Mass/volume] mmol/L Dony's in Blood [facility], ) Chloride 106 Normal (applies [facility]GEN (St [Moles/volume] mmol/L to non-numeric Dony's in Serum or results) [facility]) Plasma Carbon dioxide, 20 mmol/L Normal (applies MEDGEN ( St total to non-numeric Dony's [Moles/volume] results) [facility]) in Serum or Plasma Calcium 9.4 mg/dL Normal (applies [facility] (St [Moles/volume] to non-numeric Dony's in Urine results) [facility]) collected for unspecified duration ID Date Data Source [id number] 12/31/2018 12:00:00 AM EDT [facility] ([facility], ) Name Value Range Interpretation Code Description Data Kimbrely rce(s) Supporting Document(s ) ID Date Data Source [id number] 12/31/2018 12:00:00 AM EDT [facility] ([facility], ) Name Value Range Interpretation Description Data Sup porting Code Source(s) Document(s ) PDF Image . Normal (applies to [facility]GEN (St non-numeric Dony's results) [facility]) PDF Image . Normal (applies to [facility] (St non-numeric Dony's results) [facility]) PDF Image . Normal (applies to [facility] (St non-numeric Dony's results) [facility]) PDF . Normal (applies to [facility] (St non-numeric Dony's results) [facility]) PDF Not applicable Normal (applies to [facility] (St non-numeric Dony's results) [facility]) PDF Image . Normal (applies to MEDGEN (St non-numeric Dony's results) [facility]) PDF Image . Normal (applies to MEDGEN (St non-numeric Dony's results) [facility], ) PDF Image . Normal (applies to MEDGEN (St non-numeric Dony's results) [facility], ) PDF Image . Normal (applies to MEDGEN (St non-numeric Dony's results) [facility], ) PDF Image . Normal (applies to [facility] (St non-numeric Dony's results) [facility], ) PDF Image . Normal (applies to MEDGEN (St non-numeric Dony's results) [facility], ) ID Date Data Source [id number] 12/31/2018 12:00:00 AM EDT [facility] ([facility], ) Name Value Range Interpretation Description Data Sup porting Code Source(s) Document(s ) Vitamin B12 503 pg/mL Normal (applies to MEDGEN (S t non-numeric Dony's results) [facility], ) ID Date Data Source [id number] 12/31/2018 12:00:00 AM EDT [facility] ([facility], ) Name Value Range Interpretation Code Description Data Kimberly rce(s) Supporting Document(s ) RPR Non Reactive Normal (applies to MEDGEN ( St non-numeric Dony's results) [facility], ) ID Date Data Source [id number] 12/31/2018 12:00:00 AM EDT [facility] ([facility], ) Name Value Range Interpretation Code Description Data Kimberly rce(s) Supporting Document(s ) TSH 2.330 Normal (applies to MEDGEN (St uIU/mL non-numeric results) Dony's [facility]) ID Date Data Source [id number] 12/31/2018 12:00:00 AM EDT [facility] ([facility], ) Name Value Range Interpretation Description Data Sup porting Code Source(s) Document(s ) Urea nitrogen 19 mg/dL Normal (applies MEDGEN (St [Mass/volume] to non-numeric Dony's in Serum or results) [facility], ) Plasma Glucose 229 mg/dL Above high normal [facility]GEN (St [Mass/volume] Dony's in Urine [facility], ) collected for unspecified duration Creatinine 1.04 Normal (applies [facility]GEN (St [Interpretation mg/dL to non-numeric Dony's ] in Urine results) [facility], ) eGFR If 82 Normal (applies MEDGEN (St NonAfricn Am mL/min/1. to non-numeric Donys 73 results) Medical, ) eGFR If Africn 94 Normal (applies MEDGEN (S t Am mL/min/1. to non-numeric Donys 73 results) Medical, ) BUN/Creatinine 18 Normal (applies MEDGEN (S t Ratio to non-numeric Dony's results) [facility], ) Sodium 141 Normal (applies [facility]GEN (St [Moles/volume] mmol/L to non-numeric Dony's in Serum or results) Medical, ) Plasma Potassium 4.6 Normal (applies [facility]GEN (St [Mass/volume] mmol/L to non-numeric Dony's in Blood results) [facility], ) Chloride 104 Normal (applies [facility]GEN (St [Moles/volume] mmol/L to non-numeric Dony's in Serum or results) [facility], ) Plasma Calcium 9.1 mg/dL Normal (applies MEDGEN (St [Moles/volume] to non-numeric Dony's in Urine results) [facility], ) collected for unspecified duration Carbon dioxide, 24 mmol/L Normal (applies MEDGEN ( St total to non-numeric Dony's [Moles/volume] results) [facility], ) in Serum or Plasma Glucose 216 mg/dL Above high normal [facility]GEN (St [Mass/volume] Dony's in Urine [facility], ) collected for unspecified duration Urea nitrogen 29 mg/dL Above high normal MEDGEN ( St [Mass/volume] Dony's in Serum or [facility], ) Plasma eGFR If 35 Below low normal MEDGEN (St NonAfricn Am mL/min/1. [facility], ) Creatinine 2.10 Above high normal [facility]GEN (St [Interpretation mg/dL Dony's ] in Urine [facility], ) BUN/Creatinine 14 Normal (applies MEDGEN (S t Ratio to non-numeric Dony's results) [facility], ) eGFR If Africn 40 Below low normal MEDGEN ( St Am mL/min/1. 73 [facility], ) Sodium 144 Normal (applies MEDGEN (St [Moles/volume] mmol/L to non-numeric Dony's in Serum or results) [facility], ) Plasma Potassium 3.9 Normal (applies MEDGEN (St [Mass/volume] mmol/L to non-numeric Dony's in Blood results) [facility], ) Chloride 109 Above high normal [facility] (St [Moles/volume] mmol/L Dony's in Serum or Medical, ) Plasma Calcium 8.7 mg/dL Normal (applies [facility]GEN (St [Moles/volume] to non-numeric Dony's in Urine results) [facility], ) collected for unspecified duration Carbon dioxide, 23 mmol/L Normal (applies MEDGEN ( St total to non-numeric Dony's [Moles/volume] results) [facility], ) in Serum or Plasma Glucose 129 mg/dL Above high normal [facility] (St [Mass/volume] Dony's in Urine [facility], ) collected for unspecified duration Urea nitrogen 39 mg/dL Above high normal MEDGEN ( St [Mass/volume] Dony's in Serum or [facility], ) Plasma Creatinine 2.54 Above high normal [facility] (St [Interpretation mg/dL Dony's ] in Urine [facility], ) eGFR If 28 Below low normal MEDGEN (St NonAfricn Am mL/min/1. Dony's 73 [facility], ) eGFR If Africn 32 Below low normal MEDGEN ( St Am mL/min/1. Dony's 73 [facility], ) BUN/Creatinine 15 Normal (applies MEDGEN (S t Ratio to non-numeric Dony's results) [facility], ) Sodium 145 Above high normal MEDGEN (St [Moles/volume] mmol/L Dony's in Serum or [facility], ) Plasma Potassium 4.1 Normal (applies MEDGEN (St [Mass/volume] mmol/L to non-numeric Dony's in Blood results) [facility], ) Chloride 111 Above high normal [facility] (St [Moles/volume] mmol/L Dony's in Serum or [facility], ) Plasma Carbon dioxide, 20 mmol/L Normal (applies MEDGEN ( St total to non-numeric Dony's [Moles/volume] results) [facility], ) in Serum or Plasma Calcium 8.2 mg/dL Below low normal [facility]GEN (St [Moles/volume] Dony's in Urine [facility], ) collected for unspecified duration Glucose 321 mg/dL Above high normal [facility] (St [Mass/volume] Dony's in Urine [facility], ) collected for unspecified duration Urea nitrogen 25 mg/dL Above high normal MEDGEN ( St [Mass/volume] Dony's in Serum or [facility], ) Plasma eGFR If 87 Normal (applies MEDGEN (St NonAfricn Am mL/min/1. to non-numeric Dony's 73 results) [facility], ) Creatinine 0.99 Normal (applies MEDGEN (St [Interpretation mg/dL to non-numeric Dony's ] in Urine results) [facility], ) BUN/Creatinine 25 Above high normal MEDGEN (St Ratio Dony's [facility], ) eGFR If Africn 101 Normal (applies MEDGEN (S t Am mL/min/1. to non-numeric Dony's 73 results) [facility], ) Sodium 138 Normal (applies MEDGEN (St [Moles/volume] mmol/L to non-numeric Dony's in Serum or results) [facility], ) Plasma Potassium 5.6 Above high normal MEDGEN (St [Mass/volume] mmol/L Dony's in Blood [facility], ) Carbon dioxide, 21 mmol/L Normal (applies MEDGEN ( St total to non-numeric Dony's [Moles/volume] results) [facility], ) in Serum or Plasma Chloride 103 Normal (applies MEDGEN (St [Moles/volume] mmol/L to non-numeric Dony's in Serum or results) [facility], ) Plasma Calcium 9.8 mg/dL Normal (applies MEDGEN (St [Moles/volume] to non-numeric Dony's in Urine results) [facility], ) collected for unspecified duration Glucose 154 mg/dL Above high normal MEDGEN (St [Mass/volume] Dony's in Urine [facility], ) collected for unspecified duration Urea nitrogen 41 mg/dL Above high normal MEDGEN ( St [Mass/volume] Dony's in Serum or [facility], ) Plasma Creatinine 1.94 Above high normal MEDGEN (St [Interpretation mg/dL Dony's ] in Urine [facility], ) eGFR If 39 Below low normal MEDGEN (St NonAfricn Am mL/min/1. Dony's 73 [facility], ) eGFR If Africn 45 Below low normal MEDGEN ( St Am mL/min/1. Dony's 73 [facility], ) BUN/Creatinine 21 Above high normal MEDGEN (St Ratio Dony's [facility], ) Potassium 5.5 Above high normal [facility]GEN (St [Mass/volume] mmol/L Dony's in Blood [facility], ) Sodium 141 Normal (applies MEDGEN (St [Moles/volume] mmol/L to non-numeric Dony's in Serum or results) Medical, ) Plasma Chloride 105 Normal (applies MEDGEN (St [Moles/volume] mmol/L to non-numeric Dony's in Serum or results) [facility], ) Plasma Carbon dioxide, 21 mmol/L Normal (applies MEDGEN ( St total to non-numeric Dony's [Moles/volume] results) [facility], ) in Serum or Plasma Calcium 9.3 mg/dL Normal (applies MEDGEN (St [Moles/volume] to non-numeric Dony's in Urine results) [facility], ) collected for unspecified duration Glucose 88 mg/dL Normal (applies MEDGEN (St [Mass/volume] to non-numeric Dony's in Urine results) [facility], ) collected for unspecified duration Urea nitrogen 33 mg/dL Above high normal MEDGEN ( St [Mass/volume] Dony's in Serum or [facility], ) Plasma Creatinine 1.45 Above high normal MEDGEN (St [Interpretation mg/dL Dony's ] in Urine [facility], ) eGFR If 55 Below low normal MEDGEN (St NonAfricn Am mL/min/1. Dony's 73 [facility], ) BUN/Creatinine 23 Above high normal MEDGEN (St Ratio Dony's [facility], ) eGFR If Africn 63 Normal (applies MEDGEN (S t Am mL/min/1. to non-numeric Dony's 73 results) [facility], ) Potassium 5.4 Above high normal [facility] (St [Mass/volume] mmol/L Dony's in Blood [facility], ) Sodium 143 Normal (applies MEDGEN (St [Moles/volume] mmol/L to non-numeric Dony's in Serum or results) [facility], ) Plasma Chloride 106 Normal (applies MEDGEN (St [Moles/volume] mmol/L to non-numeric Dony's in Serum or results) [facility], ) Plasma Carbon dioxide, 20 mmol/L Normal (applies MEDGEN ( St total to non-numeric Dony's [Moles/volume] results) [facility], ) in Serum or Plasma Calcium 9.4 mg/dL Normal (applies [facility]GEN (St [Moles/volume] to non-numeric Dony's in Urine results) [facility], ) collected for unspecified duration Glucose 238 mg/dL Above high normal MEDGEN (St [Mass/volume] Dony's in Urine [facility], ) collected for unspecified duration Creatinine 1.13 Normal (applies MEDGEN (St [Interpretation mg/dL to non-numeric Dony's ] in Urine results) [facility], ) Urea nitrogen 21 mg/dL Normal (applies MEDGEN (St [Mass/volume] to non-numeric Dony's in Serum or results) [facility], ) Plasma eGFR If 74 Normal (applies MEDGEN (St NonAfricn Am mL/min/1. to non-numeric Dony's 73 results) [facility], ) eGFR If Africn 85 Normal (applies MEDGEN (S t Am mL/min/1. to non-numeric Dony's 73 results) [facility], ) Sodium 140 Normal (applies MEDGEN (St [Moles/volume] mmol/L to non-numeric Dony's in Serum or results) [facility], ) Plasma BUN/Creatinine 19 Normal (applies MEDGEN (S t Ratio to non-numeric Dony's results) [facility], ) Potassium 4.5 Normal (applies MEDGEN (St [Mass/volume] mmol/L to non-numeric Dony's in Blood results) [facility], ) Carbon dioxide, 19 mmol/L Below low normal MEDGEN (St total Dony's [Moles/volume] [facility], ) in Serum or Plasma Chloride 103 Normal (applies MEDGEN (St [Moles/volume] mmol/L to non-numeric Dony's in Serum or results) [facility], ) Plasma Calcium 9.8 mg/dL Normal (applies MEDGEN (St [Moles/volume] to non-numeric Dony's in Urine results) [facility], ) collected for unspecified duration Glucose 320 mg/dL Above high normal MEDGEN (St [Mass/volume] Dony's in Urine [facility], ) collected for unspecified duration Urea nitrogen 28 mg/dL Above high normal [facility] ( St [Mass/volume] Dony's in Serum or [facility], ) Plasma Creatinine 1.40 Above high normal [facility] (St [Interpretation mg/dL Dony's ] in Urine [facility], ) eGFR If Africn 65 Normal (applies MEDGEN (S t Am mL/min/1. to non-numeric Dony's 73 results) [facility], ) eGFR If 57 Below low normal MEDGEN (St NonAfricn Am mL/min/1. Dony's 73 [facility], ) Sodium 141 Normal (applies MEDGEN (St [Moles/volume] mmol/L to non-numeric Dony's in Serum or results) Medical, ) Plasma BUN/Creatinine 20 Normal (applies MEDGEN (S t Ratio to non-numeric Dony's results) [facility], ) Chloride 103 Normal (applies MEDGEN (St [Moles/volume] mmol/L to non-numeric Dony's in Serum or results) Medical, ) Plasma Potassium 4.3 Normal (applies MEDGEN (St [Mass/volume] mmol/L to non-numeric Dony's in Blood results) [facility], ) Carbon dioxide, 22 mmol/L Normal (applies MEDGEN ( St total to non-numeric Dony's [Moles/volume] results) [facility], ) in Serum or Plasma Calcium 8.9 mg/dL Normal (applies [facility]GEN (St [Moles/volume] to non-numeric Dony's in Urine results) [facility], ) collected for unspecified duration ID Date Data Source [id number] 12/07/2018 12:00:00 AM EDT [facility] ([facility], ) Name Value Range Interpretation Code Description Data Kimberly rce(s) Supporting Document(s ) ID Date Data Source [id number] 12/07/2018 12:00:00 AM EDT [facility] ([facility], ) Name Value Range Interpretation Code Description Data Kimberly rce(s) Supporting Document(s ) PDF Image . Normal (applies to MEDGEN (St non-numeric results) Dony's Me [facility]) ID Date Data Source [id number] 12/07/2018 12:00:00 AM EDT [facility] ([facility], ) Name Value Range Interpretation Description Data Sup porting Code Source(s) Document(s ) Hemoglobin 7.0 % Above high normal MED[facility] (St A1c/Hemoglobin. Dony's total in Blood [facility], ) ID Date Data Source [id number] 12/07/2018 12:00:00 AM EDT [facility] ([facility], ) Name Value Range Interpretation Description Data Sup porting Code Source(s) Document(s ) Cholesterol 181 Normal (applies MEDGEN (St [Mass/volume] in mg/dL to non-numeric Dony's Serum or Plasma results) [facility], ) Triglyceride 85 mg/dL Normal (applies [facility]GEN (St [Mass/volume] in to non-numeric Dony's Serum or Plasma results) Medical, ) HDL Cholesterol 86 mg/dL Normal (applies MEDGEN ( St to non-numeric Dnoy's results) Medical, [facility]) VLDL Cholesterol 17 mg/dL Normal (applies MED[facility] (St Vasile to non-numeric Dony's results) Medical, ) LDL Cholesterol 78 mg/dL Normal (applies MEDGEN ( St Calc to non-numeric Dony's results) Medical, ) ID Date Data Source [id number] 12/07/2018 12:00:00 AM EDT [facility] ([facility], ) Name Value Range Interpretation Description Data Sup porting Code Source(s) Document(s ) Glucose 88 mg/dL Normal (applies MEDGEN (St [Mass/volume] in to non-numeric Dony's Urine collected for results) [facility], unspecified ) duration Urea nitrogen 30 mg/dL Above high MEDGEN (St [Mass/volume] in normal Dony's Serum or Plasma Medical, ) Creatinine 1.28 Above high MEDGEN (St [Interpretation] in mg/dL normal Dony's Urine Medical, ) eGFR If NonAfricn 63 Normal (applies MEDGEN (St Am mL/min/1 to non-numeric Dony's .73 results) Medical, ) eGFR If Africn Am 73 Normal (applies MEDGEN (St mL/min/1 to non-numeric Dony's .73 results) Medical, ) BUN/Creatinine 23 Above high MEDGEN (St Ratio normal Dony's Medical, ) Sodium 144 Normal (applies MEDGEN (St [Moles/volume] in mmol/L to non-numeric Dony's Serum or Plasma results) Medical, PC) Potassium 5.1 Normal (applies MEDGEN (St [Mass/volume] in mmol/L to non-numeric Dony's Blood results) Medical, ) Chloride 108 Above high MEDGEN (St [Moles/volume] in mmol/L normal Dony's Serum or Plasma Medical, ) Calcium 9.1 Normal (applies MEDGEN (St [Moles/volume] in mg/dL to non-numeric Dony's Urine collected for results) Medical, unspecified PC) duration Carbon dioxide, 19 Below low normal MEDGEN (St total mmol/L Dony's [Moles/volume] in Medical, Serum or Plasma PC) Protein 6.4 g/dL Normal (applies MEDGEN (St [Mass/volume] in to non-numeric Dony's Serum or Plasma results) Medical, PC) Microalbumin 4.1 g/dL Normal (applies MEDGEN (St [Mass/time] in to non-numeric Dony's Urine collected for results) Medical, unspecified PC) duration Globulin, Total 2.3 g/dL Normal (applies MEDGEN ( St to non-numeric Dony's results) Medical, PC) A/G Ratio 1.8 Normal (applies MEDGEN (St to non-numeric Dony's results) Medical, PC) Bilirubin.total <0.2 Normal (applies [facility] ( St [Mass/volume] in to non-numeric [facility] Serum or Plasma results) [facility], PC) Alkaline 91 IU/L Normal (applies [facility] (St phosphatase to non-numeric [facility] [Enzymatic results) Medical, activity/volume] in PC) Serum, Plasma or Blood Aspartate 17 IU/L Normal (applies [facility] (St aminotransferase to non-numeric [facility] [Enzymatic results) Medical, activity/volume] in PC) Serum or Plasma Alanine 12 IU/L Normal (applies [facility] (St aminotransferase to non-numeric [facility] [Enzymatic results) Medical, activity/volume] in PC) Serum or Plasma ID Date Data Source [id number] 12/07/2018 12:00:00 AM EDT [facility] ([facility] Name Value Range Interpretation Code Description Data Kimberly rce(s) Supporting Document(s ) ID Date Data Source [id number] 12/07/2018 12:00:00 AM EDT [facility] ([facility] Name Value Range Interpretation Code Description Data Kimberly rce(s) Supporting Document(s ) PDF Image . Normal (applies to [facility] (St non-numeric results) [facility], ) ID Date Data Source [id number] 12/07/2018 12:00:00 AM EDT [facility] ([facility] Name Value Range Interpretation Description Data Sup porting Code Source(s) Document(s ) Hemoglobin 7.0 % Above high normal [facility] (St A1c/Hemoglobin. [facility] total in Blood Medical, ) ID Date Data Source [id number] 12/07/2018 12:00:00 AM EDT [facility] ([facility], ) Name Value Range Interpretation Description Data Sup porting Code Source(s) Document(s ) Cholesterol 181 Normal (applies [facility] (St [Mass/volume] in mg/dL to non-numeric [facility] Serum or Plasma results) Medical, PC) Triglyceride 85 mg/dL Normal (applies [facility] (St [Mass/volume] in to non-numeric [facility] Serum or Plasma results) Medical, PC) HDL Cholesterol 86 mg/dL Normal (applies [facility] ( St to non-numeric [facility] results) Medical, PC) VLDL Cholesterol 17 mg/dL Normal (applies [facility] (St Vas[facility] to non-numeric [facility] results) Medical, PC) LDL Cholesterol 78 mg/dL Normal (applies [facility] ( St Calc to non-numeric [facility] results) [facility], PC) ID Date Data Source [id number] 12/07/2018 12:00:00 AM EDT [facility] ([facility], ) Name Value Range Interpretation Description Data Sup porting Code Source(s) Document(s ) Glucose 88 mg/dL Normal (applies [facility] (St [Mass/volume] in to non-numeric [facility] Urine collected for results) Medical, unspecified PC) duration Urea nitrogen 30 mg/dL Above high [facility] (St [Mass/volume] in normal [facility] Serum or Plasma Medical, PC) Creatinine 1.28 Above high [facility] (St [Interpretation] in mg/dL normal [facility] Urine [facility], PC) eGFR If NonAfricn 63 Normal (applies [facility] (St Am mL/min/1 to non-numeric [facility] .73 results) Medical, PC) BUN/Creatinine 23 Above high [facility] (St Ratio normal [facility], [facility]) eGFR If Africn Am 73 Normal (applies [facility] (St mL/min/1 to non-numeric [facility] .73 results) Medical, PC) Sodium 144 Normal (applies [facility] (St [Moles/volume] in mmol/L to non-numeric [facility] Serum or Plasma results) Medical, PC) Potassium 5.1 Normal (applies [facility] (St [Mass/volume] in mmol/L to non-numeric [facility] Blood results) Medical, PC) Chloride 108 Above high [facility] (St [Moles/volume] in mmol/L normal [facility] Serum or Plasma Medical, PC) Carbon dioxide, 19 Below low normal [facility] (St total mmol/L [facility] [Moles/volume] in Medical, Serum or Plasma PC) Protein 6.4 g/dL Normal (applies [facility] (St [Mass/volume] in to non-numeric [facility] Serum or Plasma results) Medical, PC) Calcium 9.1 Normal (applies [facility] (St [Moles/volume] in mg/dL to non-numeric [facility] Urine collected for results) Medical, unspecified PC) duration Microalbumin 4.1 g/dL Normal (applies [facility] (St [Mass/time] in to non-numeric [facility] Urine collected for results) Medical, unspecified PC) duration Globulin, Total 2.3 g/dL Normal (applies [facility] ( St to non-numeric [facility] results) Medical, PC) A/G Ratio 1.8 Normal (applies [facility] (St to non-numeric [facility] results) Medical, PC) Alkaline 91 IU/L Normal (applies [facility] (St phosphatase to non-numeric [facility] [Enzymatic results) Medical, activity/volume] in PC) Serum, Plasma or Blood Bilirubin.total <0.2 Normal (applies [facility] ( St [Mass/volume] in to non-numeric [facility] Serum or Plasma results) Medical, PC) Aspartate 17 IU/L Normal (applies [facility] (St aminotransferase to non-numeric [facility] [Enzymatic results) Medical, activity/volume] in PC) Serum or Plasma Alanine 12 IU/L Normal (applies [facility] (St aminotransferase to non-numeric [facility] [Enzymatic results) Medical, activity/volume] in PC) Serum or Plasma ID Date Data Source [id number] 12/07/2018 12:00:00 AM EDT [facility] ([facility], ) Name Value Range Interpretation Code Description Data Kimberly rce(s) Supporting Document(s ) ID Date Data Source [id number] 12/07/2018 12:00:00 AM EDT [facility] ([facility]) Name Value Range Interpretation Code Description Data Kimberly rce(s) Supporting Document(s ) PDF Image . Normal (applies to [facility] (St non-numeric results) [facility] dicmi, ) ID Date Data Source [id number] 12/07/2018 12:00:00 AM EDT [facility] ([facility], ) Name Value Range Interpretation Description Data Sup porting Code Source(s) Document(s ) Hemoglobin 7.0 % Above high normal [facility] (St A1c/Hemoglobin. [facility] total in Blood [facility], ) ID Date Data Source [id number] 12/07/2018 12:00:00 AM EDT [facility] ([facility], ) Name Value Range Interpretation Description Data Sup porting Code Source(s) Document(s ) Cholesterol 181 Normal (applies [facility] (St [Mass/volume] in mg/dL to non-numeric [facility] Serum or Plasma results) Medical, PC) Triglyceride 85 mg/dL Normal (applies [facility] (St [Mass/volume] in to non-numeric [facility] Serum or Plasma results) Medical, PC) VLDL Cholesterol 17 mg/dL Normal (applies [facility] (St [facility] to non-numeric [facility] results) Medical, ) HDL Cholesterol 86 mg/dL Normal (applies [facility] ( St to non-numeric [facility] results) Medical, ) LDL Cholesterol 78 mg/dL Normal (applies [facility] ( St Calc to non-numeric [facility] results) [facility], ) ID Date Data Source [id number] 12/07/2018 12:00:00 AM EDT [facility] ([facility], ) Name Value Range Interpretation Description Data Sup porting Code Source(s) Document(s ) Glucose 88 mg/dL Normal (applies [facility] (St [Mass/volume] in to non-numeric [facility] Urine collected for results) Medical, unspecified PC) duration Urea nitrogen 30 mg/dL Above high [facility] (St [Mass/volume] in normal [facility] Serum or Plasma Medical, ) Creatinine 1.28 Above high [facility] (St [Interpretation] in mg/dL normal [facility] Urine [facility], ) eGFR If NonAfricn 63 Normal (applies [facility] (St Am mL/min/1 to non-numeric [facility] .73 results) Medical, PC) eGFR If Africn Am 73 Normal (applies [facility] (St mL/min/1 to non-numeric [facility] .73 results) Medical, ) BUN/Creatinine 23 Above high [facility] (St Ratio normal [facility], ) Sodium 144 Normal (applies [facility] (St [Moles/volume] in mmol/L to non-numeric [facility] Serum or Plasma results) Medical, PC) Chloride 108 Above high [facility] (St [Moles/volume] in mmol/L normal [facility] Serum or Plasma Medical, ) Potassium 5.1 Normal (applies [facility] (St [Mass/volume] in mmol/L to non-numeric [facility] Blood results) Medical, ) Carbon dioxide, 19 Below low normal [facility] (St total mmol/L [facility] [Moles/volume] in Medical, Serum or Plasma PC) Calcium 9.1 Normal (applies [facility] (St [Moles/volume] in mg/dL to non-numeric [facility] Urine collected for results) Medical, unspecified PC) duration Protein 6.4 g/dL Normal (applies [facility] (St [Mass/volume] in to non-numeric [facility] Serum or Plasma results) Medical, ) Microalbumin 4.1 g/dL Normal (applies [facility] (St [Mass/time] in to non-numeric [facility] Urine collected for results) Medical, unspecified PC) duration Globulin, Total 2.3 g/dL Normal (applies [facility] ( St to non-numeric [facility] results) Medical, ) A/G Ratio 1.8 Normal (applies [facility] (St to non-numeric [facility] results) Medical, ) Alkaline 91 IU/L Normal (applies [facility] (St phosphatase to non-numeric [facility] [Enzymatic results) Medical, activity/volume] in PC) Serum, Plasma or Blood Bilirubin.total <0.2 Normal (applies [facility] ( St [Mass/volume] in to non-numeric [facility] Serum or Plasma results) Medical, ) Aspartate 17 IU/L Normal (applies [facility] (St aminotransferase to non-numeric [facility] [Enzymatic results) Medical, activity/volume] in PC) Serum or Plasma Alanine 12 IU/L Normal (applies [facility] (St aminotransferase to non-numeric [facility] [Enzymatic results) Medical, activity/volume] in PC) Serum or Plasma ID Date Data Source [id number] 12/07/2018 12:00:00 AM EDT [facility] ([facility], ) Name Value Range Interpretation Code Description Data Kimberly rce(s) Supporting Document(s ) ID Date Data Source [id number] 12/07/2018 12:00:00 AM EDT [facility] ([facility], ) Name Value Range Interpretation Code Description Data Kimberly rce(s) Supporting Document(s ) PDF Image . Normal (applies to [facility] (St non-numeric results) [facility]) ID Date Data Source [id number] 12/07/2018 12:00:00 AM EDT [facility] ([facility], ) Name Value Range Interpretation Description Data Sup porting Code Source(s) Document(s ) Hemoglobin 7.0 % Above high normal [facility] (St A1c/Hemoglobin. [facility] total in Blood [facility], ) ID Date Data Source [id number] 12/07/2018 12:00:00 AM EDT [facility] ([facility], ) Name Value Range Interpretation Description Data Sup porting Code Source(s) Document(s ) Cholesterol 181 Normal (applies [facility] (St [Mass/volume] in mg/dL to non-numeric [facility] Serum or Plasma results) Medical, PC) Triglyceride 85 mg/dL Normal (applies [facility] (St [Mass/volume] in to non-numeric [facility] Serum or Plasma results) Medical, PC) HDL Cholesterol 86 mg/dL Normal (applies [facility] ( St to non-numeric [facility] results) [facility], ) VLDL Cholesterol 17 mg/dL Normal (applies [facility] (St [facility] to non-numeric [facility] results) [facility], PC) LDL Cholesterol 78 mg/dL Normal (applies [facility] ( St Calc to non-numeric [facility] results) [facility], ) ID Date Data Source [id number] 12/07/2018 12:00:00 AM EDT [facility] ([facility], ) Name Value Range Interpretation Description Data Sup porting Code Source(s) Document(s ) Glucose 88 mg/dL Normal (applies [facility] (St [Mass/volume] in to non-numeric [facility] Urine collected for results) [facility], unspecified ) duration Creatinine 1.28 Above high [facility] (St [Interpretation] in mg/dL normal [facility] Urine [facility], ) Urea nitrogen 30 mg/dL Above high [facility] (St [Mass/volume] in normal [facility] Serum or Plasma [facility], ) eGFR If NonAfricn 63 Normal (applies [facility] (St Am mL/min/1 to non-numeric [facility] .73 results) Medical, ) eGFR If Africn Am 73 Normal (applies [facility] (St mL/min/1 to non-numeric [facility] .73 results) Medical, PC) BUN/Creatinine 23 Above high [facility] (St Ratio normal [facility], PC) Sodium 144 Normal (applies [facility] (St [Moles/volume] in mmol/L to non-numeric [facility] Serum or Plasma results) Medical, PC) Potassium 5.1 Normal (applies [facility] (St [Mass/volume] in mmol/L to non-numeric [facility] Blood results) Medical, PC) Chloride 108 Above high [facility] (St [Moles/volume] in mmol/L normal [facility] Serum or Plasma Medical, PC) Calcium 9.1 Normal (applies [facility] (St [Moles/volume] in mg/dL to non-numeric [facility] Urine collected for results) Medical, unspecified PC) duration Carbon dioxide, 19 Below low normal [facility] (St total mmol/L [facility] [Moles/volume] in Medical, Serum or Plasma PC) Protein 6.4 g/dL Normal (applies [facility] (St [Mass/volume] in to non-numeric [facility] Serum or Plasma results) Medical, ) Microalbumin 4.1 g/dL Normal (applies [facility] (St [Mass/time] in to non-numeric [facility] Urine collected for results) Medical, unspecified PC) duration Globulin, Total 2.3 g/dL Normal (applies [facility] ( St to non-numeric [facility] results) Medical, PC) A/G Ratio 1.8 Normal (applies [facility] (St to non-numeric [facility] results) Medical, PC) Bilirubin.total <0.2 Normal (applies [facility] ( St [Mass/volume] in to non-numeric [facility] Serum or Plasma results) Medical, PC) Alkaline 91 IU/L Normal (applies [facility] (St phosphatase to non-numeric [facility] [Enzymatic results) Medical, activity/volume] in PC) Serum, Plasma or Blood Aspartate 17 IU/L Normal (applies [facility] (St aminotransferase to non-numeric [facility] [Enzymatic results) Medical, activity/volume] in PC) Serum or Plasma Alanine 12 IU/L Normal (applies [facility] (St aminotransferase to non-numeric [facility] [Enzymatic results) Medical, activity/volume] in PC) Serum or Plasma ID Date Data Source [id number] 12/07/2018 12:00:00 AM EDT [facility] ([facility], ) Name Value Range Interpretation Code Description Data Kimberly rce(s) Supporting Document(s ) ID Date Data Source [id number] 12/07/2018 12:00:00 AM EDT [facility] ([facility], ) Name Value Range Interpretation Code Description Data Kimberly rce(s) Supporting Document(s ) PDF Image . Normal (applies to [facility] (St non-numeric results) [facility], ) ID Date Data Source [id number] 12/07/2018 12:00:00 AM EDT [facility] ([facility], ) Name Value Range Interpretation Description Data Sup porting Code Source(s) Document(s ) Hemoglobin 7.0 % Above high normal [facility] (St A1c/Hemoglobin. [facility] total in Blood Medical, PC) ID Date Data Source [id number] 12/07/2018 12:00:00 AM EDT [facility] ([facility], ) Name Value Range Interpretation Description Data Sup porting Code Source(s) Document(s ) Cholesterol 181 Normal (applies [facility] (St [Mass/volume] in mg/dL to non-numeric [facility] Serum or Plasma results) Medical, PC) Triglyceride 85 mg/dL Normal (applies [facility] (St [Mass/volume] in to non-numeric [facility] Serum or Plasma results) Medical, PC) VLDL Cholesterol 17 mg/dL Normal (applies [facility] (St [facility] to non-numeric [facility] results) Medical, PC) HDL Cholesterol 86 mg/dL Normal (applies [facility] ( St to non-numeric [facility] results) Medical, PC) LDL Cholesterol 78 mg/dL Normal (applies [facility] ( St Calc to non-numeric [facility] results) Medical, PC) ID Date Data Source [id number] 12/07/2018 12:00:00 AM EDT [facility] ([facility], ) Name Value Range Interpretation Description Data Sup porting Code Source(s) Document(s ) Glucose 88 mg/dL Normal (applies [facility] (St [Mass/volume] in to non-numeric [facility] Urine collected for results) Medical, unspecified PC) duration Urea nitrogen 30 mg/dL Above high [facility] (St [Mass/volume] in normal [facility] Serum or Plasma Medical, PC) eGFR If NonAfricn 63 Normal (applies [facility] (St Am mL/min/1 to non-numeric [facility] .73 results) Medical, PC) Creatinine 1.28 Above high [facility] (St [Interpretation] in mg/dL normal [facility] Urine Medical, PC) eGFR If Africn Am 73 Normal (applies [facility] (St mL/min/1 to non-numeric [facility] .73 results) Medical, PC) BUN/Creatinine 23 Above high [facility] (St Ratio normal [facility], PC) Sodium 144 Normal (applies [facility] (St [Moles/volume] in mmol/L to non-numeric [facility] Serum or Plasma results) Medical, PC) Potassium 5.1 Normal (applies [facility] (St [Mass/volume] in mmol/L to non-numeric [facility] Blood results) Medical, PC) Chloride 108 Above high [facility] (St [Moles/volume] in mmol/L normal [facility] Serum or Plasma Medical, PC) Calcium 9.1 Normal (applies [facility] (St [Moles/volume] in mg/dL to non-numeric [facility] Urine collected for results) Medical, unspecified PC) duration Carbon dioxide, 19 Below low normal [facility] (St total mmol/L [facility] [Moles/volume] in Medical, Serum or Plasma PC) Protein 6.4 g/dL Normal (applies [facility] (St [Mass/volume] in to non-numeric [facility] Serum or Plasma results) Medical, PC) Microalbumin 4.1 g/dL Normal (applies [facility] (St [Mass/time] in to non-numeric [facility] Urine collected for results) Medical, unspecified PC) duration Globulin, Total 2.3 g/dL Normal (applies [facility] ( St to non-numeric [facility] results) Medical, PC) A/G Ratio 1.8 Normal (applies [facility] (St to non-numeric [facility] results) Medical, PC) Bilirubin.total <0.2 Normal (applies [facility] ( St [Mass/volume] in to non-numeric [facility] Serum or Plasma results) Medical, PC) Aspartate 17 IU/L Normal (applies [facility] (St aminotransferase to non-numeric [facility] [Enzymatic results) Medical, activity/volume] in PC) Serum or Plasma Alkaline 91 IU/L Normal (applies [facility] (St phosphatase to non-numeric [facility] [Enzymatic results) Medical, activity/volume] in PC) Serum, Plasma or Blood Alanine 12 IU/L Normal (applies [facility] (St aminotransferase to non-numeric [facility] [Enzymatic results) Medical, activity/volume] in PC) Serum or Plasma ID Date Data Source [id number] 12/07/2018 12:00:00 AM EDT [facility] ([facility], ) Name Value Range Interpretation Code Description Data Kimberly rce(s) Supporting Document(s ) ID Date Data Source [id number] 12/07/2018 12:00:00 AM EDT [facility] ([facility], ) Name Value Range Interpretation Code Description Data Kimberly rce(s) Supporting Document(s ) PDF Image . Normal (applies to [facility] (St non-numeric results) [facility] Me dical, ) ID Date Data Source [id number] 12/07/2018 12:00:00 AM EDT [facility] ([facility], ) Name Value Range Interpretation Description Data Sup porting Code Source(s) Document(s ) Hemoglobin 7.0 % Above high normal [facility] (St A1c/Hemoglobin. [facility] total in Blood Medical, ) ID Date Data Source [id number] 12/07/2018 12:00:00 AM EDT [facility] ([facility], ) Name Value Range Interpretation Description Data Sup porting Code Source(s) Document(s ) Cholesterol 181 Normal (applies [facility] (St [Mass/volume] in mg/dL to non-numeric [facility] Serum or Plasma results) Medical, ) Triglyceride 85 mg/dL Normal (applies [facility] (St [Mass/volume] in to non-numeric [facility] Serum or Plasma results) Medical, ) HDL Cholesterol 86 mg/dL Normal (applies [facility] ( St to non-numeric [facility] results) Medical, ) VLDL Cholesterol 17 mg/dL Normal (applies [facility] (St [facility] to non-numeric [facility] results) Medical, ) LDL Cholesterol 78 mg/dL Normal (applies [facility] ( St Calc to non-numeric [facility] results) Medical, ) ID Date Data Source [id number] 12/07/2018 12:00:00 AM EDT [facility] ([facility], ) Name Value Range Interpretation Description Data Sup porting Code Source(s) Document(s ) Glucose 88 mg/dL Normal (applies [facility] (St [Mass/volume] in to non-numeric [facility] Urine collected for results) Medical, unspecified PC) duration Urea nitrogen 30 mg/dL Above high [facility] (St [Mass/volume] in normal [facility] Serum or Plasma Medical, ) Creatinine 1.28 Above high [facility] (St [Interpretation] in mg/dL normal [facility] Urine Medical, ) eGFR If NonAfricn 63 Normal (applies [facility] (St Am mL/min/1 to non-numeric [facility] .73 results) Medical, ) eGFR If Africn Am 73 Normal (applies [facility] (St mL/min/1 to non-numeric [facility] .73 results) Medical, ) BUN/Creatinine 23 Above high [facility] (St Ratio normal [facility] Medical, ) Sodium 144 Normal (applies [facility] (St [Moles/volume] in mmol/L to non-numeric [facility] Serum or Plasma results) Medical, ) Potassium 5.1 Normal (applies [facility] (St [Mass/volume] in mmol/L to non-numeric [facility] Blood results) Medical, ) Chloride 108 Above high [facility] (St [Moles/volume] in mmol/L normal [facility] Serum or Plasma Medical, ) Carbon dioxide, 19 Below low normal [facility] (St total mmol/L [facility] [Moles/volume] in Medical, Serum or Plasma PC) Calcium 9.1 Normal (applies [facility] (St [Moles/volume] in mg/dL to non-numeric [facility] Urine collected for results) Medical, unspecified PC) duration Protein 6.4 g/dL Normal (applies [facility] (St [Mass/volume] in to non-numeric [facility] Serum or Plasma results) Medical, ) Microalbumin 4.1 g/dL Normal (applies [facility] (St [Mass/time] in to non-numeric [facility] Urine collected for results) Medical, unspecified PC) duration Globulin, Total 2.3 g/dL Normal (applies [facility] ( St to non-numeric [facility] results) Medical, ) A/G Ratio 1.8 Normal (applies [facility] (St to non-numeric [facility] results) Medical, ) Alkaline 91 IU/L Normal (applies [facility] (St phosphatase to non-numeric [facility] [Enzymatic results) Medical, activity/volume] in ) Serum, Plasma or Blood Bilirubin.total <0.2 Normal (applies [facility] ( St [Mass/volume] in to non-numeric [facility] Serum or Plasma results) Medical, ) Aspartate 17 IU/L Normal (applies [facility] (St aminotransferase to non-numeric [facility] [Enzymatic results) Medical, activity/volume] in ) Serum or Plasma Alanine 12 IU/L Normal (applies [facility] (St aminotransferase to non-numeric [facility] [Enzymatic results) Medical, activity/volume] in ) Serum or Plasma ID Date Data Source [id number] 12/07/2018 12:00:00 AM EDT [facility] ([facility], ) Name Value Range Interpretation Code Description Data Supporting Source(s) Document(s ) Sodium, 81 mmol/L Normal (applies to [facility] (St Urine non-numeric [facility] results) [facility], ) ID Date Data Source [id number] 12/07/2018 12:00:00 AM EDT [facility] ([facility], ) Name Value Range Interpretation Code Description Data Kimberly rce(s) Supporting Document(s ) PDF Image . Normal (applies to [facility] (St non-numeric results) [facility]) ID Date Data Source [id number] 12/07/2018 12:00:00 AM EDT [facility] ([facility], ) Name Value Range Interpretation Description Data Sup porting Code Source(s) Document(s ) Hemoglobin 7.0 % Above high normal [facility] (St A1c/Hemoglobin. [facility] total in Blood [facility], ) ID Date Data Source [id number] 12/07/2018 12:00:00 AM EDT [facility] ([facility], ) Name Value Range Interpretation Description Data Sup porting Code Source(s) Document(s ) Cholesterol 181 Normal (applies [facility] (St [Mass/volume] in mg/dL to non-numeric [facility] Serum or Plasma results) Medical, ) Triglyceride 85 mg/dL Normal (applies [facility] (St [Mass/volume] in to non-numeric [facility] Serum or Plasma results) Medical, PC) HDL Cholesterol 86 mg/dL Normal (applies [facility] ( St to non-numeric [facility] results) Medical, PC) VLDL Cholesterol 17 mg/dL Normal (applies [facility] (St [facility] to non-numeric [facility] results) Medical, PC) LDL Cholesterol 78 mg/dL Normal (applies [facility] ( St Calc to non-numeric [facility] results) Medical, PC) ID Date Data Source [id number] 12/07/2018 12:00:00 AM EDT [facility] ([facility], ) Name Value Range Interpretation Description Data Sup porting Code Source(s) Document(s ) Glucose 88 mg/dL Normal (applies [facility] (St [Mass/volume] in to non-numeric [facility] Urine collected for results) Medical, unspecified PC) duration Urea nitrogen 30 mg/dL Above high [facility] (St [Mass/volume] in normal [facility] Serum or Plasma Medical, PC) eGFR If NonAfricn 63 Normal (applies [facility] (St Am mL/min/1 to non-numeric [facility] .73 results) Medical, PC) Creatinine 1.28 Above high [facility] (St [Interpretation] in mg/dL normal [facility] Urine Medical, PC) eGFR If Africn Am 73 Normal (applies [facility] (St mL/min/1 to non-numeric [facility] .73 results) Medical, PC) BUN/Creatinine 23 Above high MED[facility] (St Ratio normal [facility], [facility]) Potassium 5.1 Normal (applies [facility] (St [Mass/volume] in mmol/L to non-numeric [facility] Blood results) Medical, PC) Sodium 144 Normal (applies [facility] (St [Moles/volume] in mmol/L to non-numeric [facility] Serum or Plasma results) Medical, PC) Chloride 108 Above high [facility]GEN (St [Moles/volume] in mmol/L normal [facility] Serum or Plasma Medical, PC) Carbon dioxide, 19 Below low normal [facility] (St total mmol/L [facility] [Moles/volume] in Medical, Serum or Plasma PC) Protein 6.4 g/dL Normal (applies [facility] (St [Mass/volume] in to non-numeric [facility] Serum or Plasma results) Medical, PC) Calcium 9.1 Normal (applies [facility] (St [Moles/volume] in mg/dL to non-numeric [facility] Urine collected for results) Medical, unspecified PC) duration Microalbumin 4.1 g/dL Normal (applies [facility] (St [Mass/time] in to non-numeric [facility] Urine collected for results) Medical, unspecified PC) duration Globulin, Total 2.3 g/dL Normal (applies [facility] ( St to non-numeric [facility] results) Medical, PC) A/G Ratio 1.8 Normal (applies [facility] (St to non-numeric [facility] results) Medical, PC) Alkaline 91 IU/L Normal (applies [facility] (St phosphatase to non-numeric [facility] [Enzymatic results) Medical, activity/volume] in PC) Serum, Plasma or Blood Bilirubin.total <0.2 Normal (applies [facility]GEN ( St [Mass/volume] in to non-numeric [facility] Serum or Plasma results) Medical, PC) Aspartate 17 IU/L Normal (applies [facility] (St aminotransferase to non-numeric [facility] [Enzymatic results) Medical, activity/volume] in PC) Serum or Plasma Alanine 12 IU/L Normal (applies [facility] (St aminotransferase to non-numeric [facility] [Enzymatic results) Medical, activity/volume] in PC) Serum or Plasma ID Date Data Source [id number] 12/07/2018 12:00:00 AM EDT [facility] ([facility]) Name Value Range Interpretation Code Description Data Kimberly rce(s) Supporting Document(s ) ID Date Data Source [id number] 12/07/2018 12:00:00 AM EDT [facility] ([facility] Name Value Range Interpretation Code Description Data Kimberly rce(s) Supporting Document(s ) PDF Image . Normal (applies to [facility] (St non-numeric results) [facility]) ID Date Data Source [id number] 12/07/2018 12:00:00 AM EDT [facility] ([facility]) Name Value Range Interpretation Description Data Sup porting Code Source(s) Document(s ) Hemoglobin 7.0 % Above high normal [facility] (St A1c/Hemoglobin. [facility] total in Blood Medical, PC) ID Date Data Source [id number] 12/07/2018 12:00:00 AM EDT [facility] ([facility]) Name Value Range Interpretation Description Data Sup porting Code Source(s) Document(s ) Cholesterol 181 Normal (applies [facility] (St [Mass/volume] in mg/dL to non-numeric [facility] Serum or Plasma results) Medical, PC) Triglyceride 85 mg/dL Normal (applies [facility] (St [Mass/volume] in to non-numeric [facility] Serum or Plasma results) Medical, PC) HDL Cholesterol 86 mg/dL Normal (applies [facility] ( St to non-numeric [facility] results) Medical, PC) LDL Cholesterol 78 mg/dL Normal (applies [facility] ( St Calc to non-numeric [facility] results) Medical, PC) VLDL Cholesterol 17 mg/dL Normal (applies [facility] (St Vasile to non-numeric [facility] results) [facility], PC) ID Date Data Source [id number] 12/07/2018 12:00:00 AM EDT [facility] ([facility], ) Name Value Range Interpretation Description Data Sup porting Code Source(s) Document(s ) Glucose 88 mg/dL Normal (applies [facility] (St [Mass/volume] in to non-numeric [facility] Urine collected for results) Medical, unspecified PC) duration Urea nitrogen 30 mg/dL Above high [facility] (St [Mass/volume] in normal [facility] Serum or Plasma Medical, PC) Creatinine 1.28 Above high [facility] (St [Interpretation] in mg/dL normal [facility] Urine [facility], PC) eGFR If NonAfricn 63 Normal (applies [facility] (St Am mL/min/1 to non-numeric [facility] .73 results) Medical, PC) eGFR If Africn Am 73 Normal (applies [facility] (St mL/min/1 to non-numeric [facility] .73 results) Medical, PC) BUN/Creatinine 23 Above high [facility] (St Ratio normal [facility]) Sodium 144 Normal (applies [facility] (St [Moles/volume] in mmol/L to non-numeric [facility] Serum or Plasma results) Medical, PC) Potassium 5.1 Normal (applies [facility] (St [Mass/volume] in mmol/L to non-numeric [facility] Blood results) Medical, PC) Chloride 108 Above high [facility] (St [Moles/volume] in mmol/L normal [facility] Serum or Plasma Medical, PC) Carbon dioxide, 19 Below low normal [facility] (St total mmol/L [facility] [Moles/volume] in Medical, Serum or Plasma PC) Calcium 9.1 Normal (applies [facility] (St [Moles/volume] in mg/dL to non-numeric [facility] Urine collected for results) Medical, unspecified PC) duration Protein 6.4 g/dL Normal (applies [facility] (St [Mass/volume] in to non-numeric [facility] Serum or Plasma results) Medical, PC) Microalbumin 4.1 g/dL Normal (applies [facility] (St [Mass/time] in to non-numeric [facility] Urine collected for results) Medical, unspecified PC) duration Globulin, Total 2.3 g/dL Normal (applies [facility] ( St to non-numeric [facility] results) Medical, PC) A/G Ratio 1.8 Normal (applies [facility] (St to non-numeric [facility] results) Medical, PC) Bilirubin.total <0.2 Normal (applies [facility] ( St [Mass/volume] in to non-numeric [facility] Serum or Plasma results) Medical, PC) Aspartate 17 IU/L Normal (applies [facility] (St aminotransferase to non-numeric [facility] [Enzymatic results) Medical, activity/volume] in PC) Serum or Plasma Alkaline 91 IU/L Normal (applies [facility] (St phosphatase to non-numeric [facility] [Enzymatic results) Medical, activity/volume] in PC) Serum, Plasma or Blood Alanine 12 IU/L Normal (applies [facility] (St aminotransferase to non-numeric [facility] [Enzymatic results) Medical, activity/volume] in PC) Serum or Plasma ID Date Data Source [id number] 12/07/2018 12:00:00 AM EDT [facility] ([facility]) Name Value Range Interpretation Code Description Data Kimberly rce(s) Supporting Document(s ) ID Date Data Source [id number] 12/07/2018 12:00:00 AM EDT [facility] ([facility]) Name Value Range Interpretation Code Description Data Kimberly rce(s) Supporting Document(s ) PDF Image . Normal (applies to [facility] (St non-numeric results) [facility]) ID Date Data Source [id number] 12/07/2018 12:00:00 AM EDT [facility] ([facility]) Name Value Range Interpretation Description Data Sup porting Code Source(s) Document(s ) Hemoglobin 7.0 % Above high normal [facility] (St A1c/Hemoglobin. [facility] total in Blood [facility], ) ID Date Data Source [id number] 12/07/2018 12:00:00 AM EDT [facility] ([facility]) Name Value Range Interpretation Description Data Sup porting Code Source(s) Document(s ) Cholesterol 181 Normal (applies [facility] (St [Mass/volume] in mg/dL to non-numeric [facility] Serum or Plasma results) Medical, PC) Triglyceride 85 mg/dL Normal (applies [facility] (St [Mass/volume] in to non-numeric [facility] Serum or Plasma results) Medical, PC) HDL Cholesterol 86 mg/dL Normal (applies [facility] ( St to non-numeric [facility] results) Medical, PC) VLDL Cholesterol 17 mg/dL Normal (applies [facility] (St Vas[place] to non-numeric [facility] results) Medical, PC) LDL Cholesterol 78 mg/dL Normal (applies [facility] ( St Calc to non-numeric [facility] results) Medical, PC) ID Date Data Source [id number] 12/07/2018 12:00:00 AM EDT [facility] ([facility], ) Name Value Range Interpretation Description Data Sup porting Code Source(s) Document(s ) Glucose 88 mg/dL Normal (applies [facility] (St [Mass/volume] in to non-numeric [facility] Urine collected for results) Medical, unspecified PC) duration Creatinine 1.28 Above high [facility] (St [Interpretation] in mg/dL normal [facility] Urine [facility], [facility]) Urea nitrogen 30 mg/dL Above high [facility] (St [Mass/volume] in normal [facility] Serum or Plasma [facility], PC) eGFR If NonAfricn 63 Normal (applies [facility] (St Am mL/min/1 to non-numeric [facility] .73 results) Medical, PC) BUN/Creatinine 23 Above high [facility] (St Ratio normal [facility], ) eGFR If Africn Am 73 Normal (applies [facility] (St mL/min/1 to non-numeric [facility] .73 results) Medical, PC) Sodium 144 Normal (applies [facility] (St [Moles/volume] in mmol/L to non-numeric [facility] Serum or Plasma results) Medical, PC) Potassium 5.1 Normal (applies [facility] (St [Mass/volume] in mmol/L to non-numeric [facility] Blood results) Medical, PC) Chloride 108 Above high [facility] (St [Moles/volume] in mmol/L normal [facility] Serum or Plasma Medical, PC) Carbon dioxide, 19 Below low normal [facility] (St total mmol/L [facility] [Moles/volume] in Medical, Serum or Plasma PC) Calcium 9.1 Normal (applies [facility] (St [Moles/volume] in mg/dL to non-numeric [facility] Urine collected for results) Medical, unspecified PC) duration Protein 6.4 g/dL Normal (applies [facility] (St [Mass/volume] in to non-numeric [facility] Serum or Plasma results) Medical, ) Globulin, Total 2.3 g/dL Normal (applies [facility] ( St to non-numeric [facility] results) Medical, PC) Microalbumin 4.1 g/dL Normal (applies [facility] (St [Mass/time] in to non-numeric [facility] Urine collected for results) Medical, unspecified PC) duration A/G Ratio 1.8 Normal (applies [facility] (St to non-numeric [facility] results) Medical, PC) Alkaline 91 IU/L Normal (applies [facility] (St phosphatase to non-numeric [facility] [Enzymatic results) Medical, activity/volume] in PC) Serum, Plasma or Blood Bilirubin.total <0.2 Normal (applies [facility] ( St [Mass/volume] in to non-numeric [facility] Serum or Plasma results) Medical, ) Aspartate 17 IU/L Normal (applies [facility] (St aminotransferase to non-numeric [facility] [Enzymatic results) Medical, activity/volume] in PC) Serum or Plasma Alanine 12 IU/L Normal (applies [facility] (St aminotransferase to non-numeric [facility] [Enzymatic results) Medical, activity/volume] in PC) Serum or Plasma ID Date Data Source [id number] 12/07/2018 12:00:00 AM EDT [facility] ([facility] ) Name Value Range Interpretation Code Description Data Kimberly rce(s) Supporting Document(s ) ID Date Data Source [id number] 12/07/2018 12:00:00 AM EDT [facility] ([facility], ) Name Value Range Interpretation Code Description Data Kimberly rce(s) Supporting Document(s ) PDF Image . Normal (applies to [facility] (St non-numeric results) [facility], ) ID Date Data Source [id number] 12/07/2018 12:00:00 AM EDT [facility] ([facility], ) Name Value Range Interpretation Description Data Sup porting Code Source(s) Document(s ) Hemoglobin 7.0 % Above high normal [facility] (St A1c/Hemoglobin. [facility] total in Blood Medical, ) ID Date Data Source [id number] 12/07/2018 12:00:00 AM EDT [facility] ([facility], ) Name Value Range Interpretation Description Data Sup porting Code Source(s) Document(s ) Cholesterol 181 Normal (applies [facility] (St [Mass/volume] in mg/dL to non-numeric [facility] Serum or Plasma results) Medical, PC) HDL Cholesterol 86 mg/dL Normal (applies [facility] ( St to non-numeric [facility] results) Medical, PC) Triglyceride 85 mg/dL Normal (applies [facility] (St [Mass/volume] in to non-numeric [facility] Serum or Plasma results) Medical, PC) VLDL Cholesterol 17 mg/dL Normal (applies [facility] (St Vasile to non-numeric [facility] results) Medical, PC) LDL Cholesterol 78 mg/dL Normal (applies [facility] ( St Calc to non-numeric [facility] results) [facility]) ID Date Data Source [id number] 12/07/2018 12:00:00 AM EDT [facility] ([facility], ) Name Value Range Interpretation Description Data Sup porting Code Source(s) Document(s ) Glucose 88 mg/dL Normal (applies [facility] (St [Mass/volume] in to non-numeric [facility] Urine collected for results) Medical, unspecified PC) duration Urea nitrogen 30 mg/dL Above high [facility] (St [Mass/volume] in normal [facility] Serum or Plasma Medical, PC) Creatinine 1.28 Above high [facility] (St [Interpretation] in mg/dL normal [facility] Urine [facility], PC) eGFR If Africn Am 73 Normal (applies [facility] (St mL/min/1 to non-numeric [facility] .73 results) Medical, PC) eGFR If NonAfricn 63 Normal (applies [facility] (St Am mL/min/1 to non-numeric [facility] .73 results) Medical, ) BUN/Creatinine 23 Above high [facility] (St Ratio normal [facility], ) Sodium 144 Normal (applies [facility] (St [Moles/volume] in mmol/L to non-numeric [facility] Serum or Plasma results) Medical, ) Potassium 5.1 Normal (applies [facility] (St [Mass/volume] in mmol/L to non-numeric [facility] Blood results) Medical, ) Chloride 108 Above high [facility] (St [Moles/volume] in mmol/L normal [facility] Serum or Plasma Medical, ) Carbon dioxide, 19 Below low normal [facility] (St total mmol/L [facility] [Moles/volume] in Medical, Serum or Plasma PC) Calcium 9.1 Normal (applies [facility] (St [Moles/volume] in mg/dL to non-numeric [facility] Urine collected for results) [facility], unspecified ) duration Microalbumin 4.1 g/dL Normal (applies [facility] (St [Mass/time] in to non-numeric [facility] Urine collected for results) [facility], unspecified ) duration Protein 6.4 g/dL Normal (applies [facility] (St [Mass/volume] in to non-numeric [facility] Serum or Plasma results) Medical, ) A/G Ratio 1.8 Normal (applies [facility] (St to non-numeric [facility] results) Medical, ) Globulin, Total 2.3 g/dL Normal (applies [facility] ( St to non-numeric [facility] results) Medical, ) Bilirubin.total <0.2 Normal (applies [facility] ( St [Mass/volume] in to non-numeric [facility] Serum or Plasma results) Medical, ) Alkaline 91 IU/L Normal (applies [facility] (St phosphatase to non-numeric [facility] [Enzymatic results) Medical, activity/volume] in PC) Serum, Plasma or Blood Aspartate 17 IU/L Normal (applies [facility] (St aminotransferase to non-numeric [facility] [Enzymatic results) Medical, activity/volume] in PC) Serum or Plasma Alanine 12 IU/L Normal (applies [facility] (St aminotransferase to non-numeric [facility] [Enzymatic results) Medical, activity/volume] in PC) Serum or Plasma ID Date Data Source [id number] 12/07/2018 12:00:00 AM EDT [facility] ([facility], ) Name Value Range Interpretation Description Data Sup porting Code Source(s) Document(s ) Hemoglobin 11.6 % Above high normal [facility] (St A1c/Hemoglobin [facility] .total in Medical, ) Blood ID Date Data Source [id number] 12/07/2018 12:00:00 AM EDT [facility] ([facility], ) Name Value Range Interpretation Code Description Data Kimberly rce(s) Supporting Document(s ) PDF Image . Normal (applies to [facility] (St non-numeric results) [facility], ) ID Date Data Source [id number] 12/07/2018 12:00:00 AM EDT [facility] ( [facility], ) Name Value Range Interpretation Description Data Sup porting Code Source(s) Document(s ) Urea nitrogen 30 mg/dL Above high [facility] (St [Mass/volume] in normal [facility] Serum or Plasma Medical, PC) eGFR If NonAfricn 63 Normal (applies [facility] (St Am mL/min/1 to non-numeric [facility] .73 results) Medical, ) Creatinine 1.28 Above high [facility] (St [Interpretation] in mg/dL normal [facility] Urine Medical, ) eGFR If Africn Am 73 Normal (applies [facility] (St mL/min/1 to non-numeric [facility] .73 results) [facility], ) BUN/Creatinine 23 Above high [facility] (St Ratio normal [facility], [facility]) Sodium 144 Normal (applies [facility] (St [Moles/volume] in mmol/L to non-numeric [facility] Serum or Plasma results) Medical, PC) Chloride 108 Above high [facility] (St [Moles/volume] in mmol/L normal [facility] Serum or Plasma [facility], [facility]) Potassium 5.1 Normal (applies [facility] (St [Mass/volume] in mmol/L to non-numeric [facility] Blood results) Medical, ) Carbon dioxide, 19 Below low normal [facility] (St total mmol/L [facility] [Moles/volume] in Medical, Serum or Plasma PC) Calcium 9.1 Normal (applies [facility] (St [Moles/volume] in mg/dL to non-numeric [facility] Urine collected for results) Medical, unspecified PC) duration Protein 6.4 g/dL Normal (applies [facility] (St [Mass/volume] in to non-numeric [facility] Serum or Plasma results) Medical, ) Microalbumin 4.1 g/dL Normal (applies [facility] (St [Mass/time] in to non-numeric [facility] Urine collected for results) Medical, unspecified ) duration Globulin, Total 2.3 g/dL Normal (applies [facility] ( St to non-numeric [facility] results) Medical, ) A/G Ratio 1.8 Normal (applies [facility] (St to non-numeric [facility] results) Medical, ) Alkaline 91 IU/L Normal (applies [facility] (St phosphatase to non-numeric [facility] [Enzymatic results) Medical, activity/volume] in ) Serum, Plasma or Blood Bilirubin.total <0.2 Normal (applies [facility] ( St [Mass/volume] in to non-numeric [facility] Serum or Plasma results) Medical, ) Aspartate 17 IU/L Normal (applies [facility] (St aminotransferase to non-numeric [facility] [Enzymatic results) Medical, activity/volume] in ) Serum or Plasma Alanine 12 IU/L Normal (applies [facility] (St aminotransferase to non-numeric [facility] [Enzymatic results) Medical, activity/volume] in ) Serum or Plasma Hemoglobin 7.0 % Above high [facility] (St A1c/Hemoglobin.tota normal [facility] l in Blood [facility], ) ID Date Data Source [id number] 12/07/2018 12:00:00 AM EDT [facility] ([facility], ) Name Value Range Interpretation Description Data Sup porting Code Source(s) Document(s ) Cholesterol 181 Normal (applies [facility] (St [Mass/volume] in mg/dL to non-numeric [facility] Serum or Plasma results) Medical, ) Triglyceride 85 mg/dL Normal (applies [facility] (St [Mass/volume] in to non-numeric [facility] Serum or Plasma results) Medical, ) HDL Cholesterol 86 mg/dL Normal (applies [facility] ( St to non-numeric [facility] results) Medical, ) VLDL Cholesterol 17 mg/dL Normal (applies [facility] (St Vas[place] to non-numeric [facility] results) Medical, ) LDL Cholesterol 78 mg/dL Normal (applies [facility] ( St Calc to non-numeric [facility] results) Medical, ) ID Date Data Source [id number] 12/07/2018 12:00:00 AM EDT [facility] ([facility], ) Name Value Range Interpretation Description Data Sup porting Code Source(s) Document(s ) Glucose 88 mg/dL Normal (applies [facility] (St [Mass/volume] in to non-numeric [facility] Urine collected for results) Medical, unspecified PC) duration Creatinine 1.28 Above high [facility] (St [Interpretation] in mg/dL normal [facility] Urine Medical, ) Urea nitrogen 30 mg/dL Above high [facility] (St [Mass/volume] in normal [facility] Serum or Plasma Medical, ) eGFR If NonAfricn 63 Normal (applies [facility] (St Am mL/min/1 to non-numeric [facility] .73 results) Medical, ) eGFR If Africn Am 73 Normal (applies [facility] (St mL/min/1 to non-numeric [facility] .73 results) Medical, ) Sodium 144 Normal (applies [facility] (St [Moles/volume] in mmol/L to non-numeric [facility] Serum or Plasma results) Medical, ) BUN/Creatinine 23 Above high [facility] (St Ratio normal [facility], ) Potassium 5.1 Normal (applies [facility] (St [Mass/volume] in mmol/L to non-numeric [facility] Blood results) Medical, ) Carbon dioxide, 19 Below low normal [facility] (St total mmol/L [facility] [Moles/volume] in Medical, Serum or Plasma PC) Chloride 108 Above high [facility] (St [Moles/volume] in mmol/L normal [facility] Serum or Plasma Medical, ) Calcium 9.1 Normal (applies [facility] (St [Moles/volume] in mg/dL to non-numeric [facility] Urine collected for results) Medical, unspecified PC) duration Protein 6.4 g/dL Normal (applies [facility] (St [Mass/volume] in to non-numeric [facility] Serum or Plasma results) Medical, ) Globulin, Total 2.3 g/dL Normal (applies [facility] ( St to non-numeric [facility] results) Medical, ) Microalbumin 4.1 g/dL Normal (applies [facility] (St [Mass/time] in to non-numeric [facility] Urine collected for results) Medical, unspecified PC) duration A/G Ratio 1.8 Normal (applies [facility] (St to non-numeric [facility] results) Medical, PC) Alkaline 91 IU/L Normal (applies [facility] (St phosphatase to non-numeric [facility] [Enzymatic results) Medical, activity/volume] in PC) Serum, Plasma or Blood Bilirubin.total <0.2 Normal (applies [facility] ( St [Mass/volume] in to non-numeric [facility] Serum or Plasma results) Medical, PC) Aspartate 17 IU/L Normal (applies [facility] (St aminotransferase to non-numeric [facility] [Enzymatic results) Medical, activity/volume] in PC) Serum or Plasma Alanine 12 IU/L Normal (applies [facility] (St aminotransferase to non-numeric [facility] [Enzymatic results) Medical, activity/volume] in PC) Serum or Plasma ID Date Data Source [id number] 12/07/2018 12:00:00 AM EDT [facility] ([facility] ) Name Value Range Interpretation Code Description Data Kimberly rce(s) Supporting Document(s ) ID Date Data Source [id number] 12/07/2018 12:00:00 AM EDT [facility] ([facility] ) Name Value Range Interpretation Code Description Data Kimberly rce(s) Supporting Document(s ) PDF Image . Normal (applies to [facility] (St non-numeric results) [facility], ) ID Date Data Source [id number] 12/07/2018 12:00:00 AM EDT [facility] ([facility] ) Name Value Range Interpretation Description Data Sup porting Code Source(s) Document(s ) Hemoglobin 7.0 % Above high normal [facility] (St A1c/Hemoglobin. [facility] total in Blood Medical, ) ID Date Data Source [id number] 12/07/2018 12:00:00 AM EDT [facility] ([facility] ) Name Value Range Interpretation Description Data Sup porting Code Source(s) Document(s ) Cholesterol 181 Normal (applies [facility] (St [Mass/volume] in mg/dL to non-numeric [facility] Serum or Plasma results) Medical, ) Triglyceride 85 mg/dL Normal (applies [facility] (St [Mass/volume] in to non-numeric [facility] Serum or Plasma results) Medical, ) HDL Cholesterol 86 mg/dL Normal (applies [facility] ( St to non-numeric [facility] results) Medical, ) VLDL Cholesterol 17 mg/dL Normal (applies [facility] (St [facility] to non-numeric [facility] results) Medical, PC) LDL Cholesterol 78 mg/dL Normal (applies [facility] ( St Calc to non-numeric [facility] results) Medical, ) ID Date Data Source [id number] 12/07/2018 12:00:00 AM EDT [facility] ([facility], ) Name Value Range Interpretation Description Data Sup porting Code Source(s) Document(s ) Glucose 88 mg/dL Normal (applies [facility] (St [Mass/volume] in to non-numeric [facility] Urine collected for results) Medical, unspecified ) duration Urea nitrogen 30 mg/dL Above high [facility] (St [Mass/volume] in normal [facility] Serum or Plasma Medical, ) Creatinine 1.28 Above high [facility] (St [Interpretation] in mg/dL normal [facility] Urine Medical, ) eGFR If NonAfricn 63 Normal (applies [facility] (St Am mL/min/1 to non-numeric [facility] .73 results) Medical, ) eGFR If Africn Am 73 Normal (applies [facility] (St mL/min/1 to non-numeric [facility] .73 results) Medical, ) Sodium 144 Normal (applies [facility] (St [Moles/volume] in mmol/L to non-numeric [facility] Serum or Plasma results) Medical, ) BUN/Creatinine 23 Above high [facility] (St Ratio normal [facility], ) Potassium 5.1 Normal (applies [facility] (St [Mass/volume] in mmol/L to non-numeric [facility] Blood results) Medical, PC) Chloride 108 Above high [facility] (St [Moles/volume] in mmol/L normal [facility] Serum or Plasma Medical, ) Carbon dioxide, 19 Below low normal [facility] (St total mmol/L [facility] [Moles/volume] in Medical, Serum or Plasma PC) Calcium 9.1 Normal (applies [facility] (St [Moles/volume] in mg/dL to non-numeric [facility] Urine collected for results) Medical, unspecified ) duration Protein 6.4 g/dL Normal (applies [facility] (St [Mass/volume] in to non-numeric [facility] Serum or Plasma results) Medical, ) Globulin, Total 2.3 g/dL Normal (applies [facility] ( St to non-numeric [facility] results) Medical, ) Microalbumin 4.1 g/dL Normal (applies [facility] (St [Mass/time] in to non-numeric [facility] Urine collected for results) Medical, unspecified PC) duration A/G Ratio 1.8 Normal (applies [facility]GEN (St to non-numeric [facility] results) Medical, ) Bilirubin.total <0.2 Normal (applies [facility] ( St [Mass/volume] in to non-numeric [facility] Serum or Plasma results) Medical, ) Alkaline 91 IU/L Normal (applies [facility] (St phosphatase to non-numeric [facility] [Enzymatic results) Medical, activity/volume] in PC) Serum, Plasma or Blood Aspartate 17 IU/L Normal (applies [facility] (St aminotransferase to non-numeric [facility] [Enzymatic results) Medical, activity/volume] in PC) Serum or Plasma Alanine 12 IU/L Normal (applies [facility] (St aminotransferase to non-numeric [facility] [Enzymatic results) Medical, activity/volume] in PC) Serum or Plasma ID Date Data Source [id number] 12/07/2018 12:00:00 AM EDT [facility] ([facility], ) Name Value Range Interpretation Code Description Data Kimberly rce(s) Supporting Document(s ) ID Date Data Source [id number] 12/07/2018 12:00:00 AM EDT [facility] ([facility], ) Name Value Range Interpretation Description Data Sup porting Code Source(s) Document(s ) PDF Image . Normal (applies to [facility] (St non-numeric [facility] results) Medical, ) PDF Image . Normal (applies to [facility] (St non-numeric [facility] results) [facility], ) PDF Image . Normal (applies to [facility] (St non-numeric [facility] results) Medical, ) PDF . Normal (applies to [facility] (St non-numeric [facility] results) [facility], ) PDF Not applicable Normal (applies to [facility] (St non-numeric [facility] results) [facility], ) PDF Image . Normal (applies to [facility] (St non-numeric [facility] results) [facility], ) PDF Image . Normal (applies to [facility] (St non-numeric [facility] results) Medical, ) PDF Image . Normal (applies to [facility] (St non-numeric [facility] results) Medical, ) PDF Image . Normal (applies to [facility] (St non-numeric [facility] results) Medical, ) PDF Image . Normal (applies to [facility] (St non-numeric [facility] results) Medical, ) PDF Image . Normal (applies to [facility] (St non-numeric [facility] results) Medical, ) ID Date Data Source [id number] 12/07/2018 12:00:00 AM EDT [facility] ([facility], ) Name Value Range Interpretation Description Data Sup porting Code Source(s) Document(s ) Hemoglobin 9.0 % Above high normal [facility] (St A1c/Hemoglobin [facility] .total in Medical, ) Blood Hemoglobin 9.1 % Above high normal [facility] (St A1c/Hemoglobin [facility] .total in Medical, ) Blood Hemoglobin 7.0 % Above high normal [facility] (St A1c/Hemoglobin [facility] .total in Medical, ) Blood Hemoglobin 11.6 % Above high normal [facility] (St A1c/Hemoglobin [facility] .total in Medical, ) Blood Hemoglobin 9.4 % Above high normal [facility] (St A1c/Hemoglobin [facility] .total in Medical, ) Blood Hemoglobin 8.3 % Above high normal [facility] (St A1c/Hemoglobin [facility] .total in Medical, ) Blood Hemoglobin 8.5 % Above high normal [facility] (St A1c/Hemoglobin [facility] .total in Medical, ) Blood ID Date Data Source [id number] 12/07/2018 12:00:00 AM EDT [facility] ([facility], ) Name Value Range Interpretation Description Data Sup porting Code Source(s) Document(s ) Cholesterol 225 Above high normal [facility] (St [Mass/volume] in mg/dL [facility] Serum or Plasma [facility], ) Triglyceride 121 Normal (applies [facility] (St [Mass/volume] in mg/dL to non-numeric [facility] Serum or Plasma results) [facility], ) HDL Cholesterol 89 mg/dL Normal (applies [facility] ( St to non-numeric [facility] results) [facility], ) LDL Cholesterol 112 Above high normal [facility] (St Calc mg/dL [facility], ) VLDL Cholesterol 24 mg/dL Normal (applies [facility] (St Vasile to non-numeric [facility] results) Medical, PC) Cholesterol 181 Normal (applies [facility] (St [Mass/volume] in mg/dL to non-numeric [facility] Serum or Plasma results) Medical, PC) Triglyceride 85 mg/dL Normal (applies [facility] (St [Mass/volume] in to non-numeric [facility] Serum or Plasma results) Medical, PC) VLDL Cholesterol 17 mg/dL Normal (applies [facility] (St Vasile to non-numeric [facility] results) Medical, ) HDL Cholesterol 86 mg/dL Normal (applies [facility] ( St to non-numeric [facility] results) Medical, PC) LDL Cholesterol 78 mg/dL Normal (applies [facility] ( St Calc to non-numeric [facility] results) Medical, ) ID Date Data Source [id number] 12/07/2018 12:00:00 AM EDT [facility] ([facility], ) Name Value Range Interpretation Description Data Sup porting Code Source(s) Document(s ) Glucose 88 mg/dL Normal (applies [facility] (St [Mass/volume] in to non-numeric [facility] Urine collected for results) Medical, unspecified PC) duration Creatinine 1.28 Above high [facility] (St [Interpretation] in mg/dL normal [facility] Urine Medical, ) Urea nitrogen 30 mg/dL Above high [facility] (St [Mass/volume] in normal [facility] Serum or Plasma Medical, ) eGFR If NonAfricn 63 Normal (applies [facility] (St Am mL/min/1 to non-numeric [facility] .73 results) Medical, PC) eGFR If Africn Am 73 Normal (applies [facility] (St mL/min/1 to non-numeric [facility] .73 results) Medical, ) Sodium 144 Normal (applies [facility] (St [Moles/volume] in mmol/L to non-numeric [facility] Serum or Plasma results) Medical, PC) BUN/Creatinine 23 Above high [facility] (St Ratio normal [facility], PC) Potassium 5.1 Normal (applies [facility] (St [Mass/volume] in mmol/L to non-numeric [facility] Blood results) Medical, PC) Chloride 108 Above high [facility] (St [Moles/volume] in mmol/L normal [facility] Serum or Plasma Medical, PC) Carbon dioxide, 19 Below low normal [facility] (St total mmol/L [facility] [Moles/volume] in Medical, Serum or Plasma PC) Calcium 9.1 Normal (applies [facility] (St [Moles/volume] in mg/dL to non-numeric [facility] Urine collected for results) Medical, unspecified PC) duration Protein 6.4 g/dL Normal (applies [facility] (St [Mass/volume] in to non-numeric [facility] Serum or Plasma results) Medical, PC) Microalbumin 4.1 g/dL Normal (applies [facility] (St [Mass/time] in to non-numeric [facility] Urine collected for results) Medical, unspecified PC) duration Globulin, Total 2.3 g/dL Normal (applies [facility] ( St to non-numeric [facility] results) Medical, PC) A/G Ratio 1.8 Normal (applies [facility] (St to non-numeric [facility] results) Medical, PC) Bilirubin.total <0.2 Normal (applies [facility] ( St [Mass/volume] in to non-numeric [facility] Serum or Plasma results) Medical, PC) Alkaline 91 IU/L Normal (applies [facility] (St phosphatase to non-numeric [facility] [Enzymatic results) Medical, activity/volume] in PC) Serum, Plasma or Blood Aspartate 17 IU/L Normal (applies [facility] (St aminotransferase to non-numeric [facility] [Enzymatic results) Medical, activity/volume] in PC) Serum or Plasma Alanine 12 IU/L Normal (applies [facility] (St aminotransferase to non-numeric [facility] [Enzymatic results) Medical, activity/volume] in PC) Serum or Plasma ID Date Data Source [id number] 12/07/2018 12:00:00 AM EDT [facility] ([facility]) Name Value Range Interpretation Code Description Data Kimberly rce(s) Supporting Document(s ) ID Date Data Source [id number] 12/07/2018 12:00:00 AM EDT [facility] ([facility]) Name Value Range Interpretation Code Description Data Kimberly rce(s) Supporting Document(s ) PDF Image . Normal (applies to [facility] (St non-numeric results) [facility] Me dical, ) ID Date Data Source [id number] 12/07/2018 12:00:00 AM EDT [facility] ([facility], ) Name Value Range Interpretation Description Data Sup porting Code Source(s) Document(s ) Hemoglobin 7.0 % Above high normal [facility] (St A1c/Hemoglobin. [facility] total in Blood [facility], ) ID Date Data Source [id number] 12/07/2018 12:00:00 AM EDT [facility] ([facility], ) Name Value Range Interpretation Description Data Sup porting Code Source(s) Document(s ) Cholesterol 181 Normal (applies [facility] (St [Mass/volume] in mg/dL to non-numeric [facility] Serum or Plasma results) Medical, PC) HDL Cholesterol 86 mg/dL Normal (applies [facility] ( St to non-numeric [facility] results) Medical, PC) Triglyceride 85 mg/dL Normal (applies [facility] (St [Mass/volume] in to non-numeric [facility] Serum or Plasma results) Medical, PC) VLDL Cholesterol 17 mg/dL Normal (applies [facility] (St Vasile to non-numeric [facility] results) Medical, ) LDL Cholesterol 78 mg/dL Normal (applies [facility] ( St Calc to non-numeric [facility] results) [facility], ) ID Date Data Source [id number] 12/07/2018 12:00:00 AM EDT [facility] ([facility], ) Name Value Range Interpretation Description Data Sup porting Code Source(s) Document(s ) Glucose 88 mg/dL Normal (applies [facility] (St [Mass/volume] in to non-numeric [facility] Urine collected for results) Medical, unspecified PC) duration Urea nitrogen 30 mg/dL Above high [facility] (St [Mass/volume] in normal [facility] Serum or Plasma Medical, PC) Creatinine 1.28 Above high [facility] (St [Interpretation] in mg/dL normal [facility] Urine Medical, ) eGFR If Africn Am 73 Normal (applies [facility] (St mL/min/1 to non-numeric [facility] .73 results) Medical, PC) eGFR If NonAfricn 63 Normal (applies [facility] (St Am mL/min/1 to non-numeric [facility] .73 results) Medical, PC) BUN/Creatinine 23 Above high [facility] (St Ratio normal [facility] Medical, PC) Sodium 144 Normal (applies [facility] (St [Moles/volume] in mmol/L to non-numeric [facility] Serum or Plasma results) Medical, PC) Potassium 5.1 Normal (applies [facility] (St [Mass/volume] in mmol/L to non-numeric [facility] Blood results) Medical, ) Carbon dioxide, 19 Below low normal [facility] (St total mmol/L [facility] [Moles/volume] in Medical, Serum or Plasma PC) Chloride 108 Above high [facility] (St [Moles/volume] in mmol/L normal [facility] Serum or Plasma Medical, ) Calcium 9.1 Normal (applies [facility] (St [Moles/volume] in mg/dL to non-numeric [facility] Urine collected for results) Medical, unspecified PC) duration Protein 6.4 g/dL Normal (applies [facility] (St [Mass/volume] in to non-numeric [facility] Serum or Plasma results) Medical, ) Globulin, Total 2.3 g/dL Normal (applies [facility] ( St to non-numeric [facility] results) Medical, ) Microalbumin 4.1 g/dL Normal (applies [facility] (St [Mass/time] in to non-numeric [facility] Urine collected for results) Medical, unspecified PC) duration A/G Ratio 1.8 Normal (applies [facility] (St to non-numeric [facility] results) Medical, ) Bilirubin.total <0.2 Normal (applies [facility] ( St [Mass/volume] in to non-numeric [facility] Serum or Plasma results) Medical, ) Alkaline 91 IU/L Normal (applies [facility] (St phosphatase to non-numeric [facility] [Enzymatic results) Medical, activity/volume] in PC) Serum, Plasma or Blood Aspartate 17 IU/L Normal (applies [facility] (St aminotransferase to non-numeric [facility] [Enzymatic results) Medical, activity/volume] in PC) Serum or Plasma Alanine 12 IU/L Normal (applies [facility] (St aminotransferase to non-numeric [facility] [Enzymatic results) Medical, activity/volume] in PC) Serum or Plasma ID Date Data Source [id number] 12/07/2018 12:00:00 AM EDT [facility] ([facility], ) Name Value Range Interpretation Code Description Data Kimberly rce(s) Supporting Document(s ) PDF Image . Normal (applies to [facility] (St non-numeric results) [facility], ) ID Date Data Source [id number] 12/07/2018 12:00:00 AM EDT [facility] ([facility]) Name Value Range Interpretation Description Data Sup porting Code Source(s) Document(s ) Cholesterol 181 Normal (applies [facility] (St [Mass/volume] in mg/dL to non-numeric [facility] Serum or Plasma results) Medical, ) Triglyceride 85 mg/dL Normal (applies [facility] (St [Mass/volume] in to non-numeric [facility] Serum or Plasma results) Medical, ) HDL Cholesterol 86 mg/dL Normal (applies [facility] ( St to non-numeric [facility] results) Medical, ) VLDL Cholesterol 17 mg/dL Normal (applies [facility] (St Vasile to non-numeric [facility] results) Medical, ) LDL Cholesterol 78 mg/dL Normal (applies [facility] ( St Calc to non-numeric [facility] results) Medical, ) ID Date Data Source [id number] 08/17/2018 12:00:00 AM EDT [facility] ([facility], ) Name Value Range Interpretation Code Description Data Kimberly rce(s) Supporting Document(s ) ID Date Data Source [id number] 08/17/2018 12:00:00 AM EDT [facility] ([facility]) Name Value Range Interpretation Description Data Sup porting Code Source(s) Document(s ) Request Test not Normal (applies to [facility] (St Problem performed non-numeric [facility] . results) Medical, ) ID Date Data Source [id number] 08/17/2018 12:00:00 AM EDT [facility] ([facility], ) Name Value Range Interpretation Description Data Sup porting Code Source(s) Document(s ) No Urine Test not Normal (applies to [facility] (St Received performed non-numeric [facility] . results) Medical, ) ID Date Data Source [id number] 08/17/2018 12:00:00 AM EDT [facility] ([facility]) Name Value Range Interpretation Code Description Data Kimberly rce(s) Supporting Document(s ) Ambig Abbrev Normal (applies to [facility] ( St CMP14 non-numeric [facility] Default results) Medical, ) ID Date Data Source [id number] 08/17/2018 12:00:00 AM EDT [facility] ([facility], ) Name Value Range Interpretation Description Data Sup porting Code Source(s) Document(s ) Hemoglobin 9.0 % Above high normal [facility] (St A1c/Hemoglobin. [facility] total in Blood [facility], ) ID Date Data Source [id number] 08/17/2018 12:00:00 AM EDT [facility] ([facility], ) Name Value Range Interpretation Code Description Data Kimberly rce(s) Supporting Document(s ) PDF Image . Normal (applies to [facility]St non-numeric results) [facility] ID Date Data Source [id number] 08/17/2018 12:00:00 AM EDT [facility] ([facility], ) Name Value Range Interpretation Description Data Sup porting Code Source(s) Document(s ) Triglyceride 121 Normal (applies [facility] (St [Mass/volume] in mg/dL to non-numeric [facility] Serum or Plasma results) [facility], ) Cholesterol 225 Above high normal [facility] (St [Mass/volume] in mg/dL [facility] Serum or Plasma [facility], ) HDL Cholesterol 89 mg/dL Normal (applies [facility] ( St to non-numeric [facility] results) [facility], ) VLDL Cholesterol 24 mg/dL Normal (applies [facility] (St Vasile to non-numeric [facility] results) [facility], ) LDL Cholesterol 112 Above high normal [facility] (St Calc mg/dL [facility], ) ID Date Data Source [id number] 08/17/2018 12:00:00 AM EDT [facility] ([facility], ) Name Value Range Interpretation Description Data Sup porting Code Source(s) Document(s ) Leukocytes 7.7 Normal (applies [facility] (St [#/volume] in x10E3/uL to non-numeric [facility] Blood by results) [facility], ) Automated count Erythrocytes 4.16 Normal (applies [facility] (St [#/volume] in x10E6/uL to non-numeric [facility] Blood by results) [facility], ) Automated count Hemoglobin 11.6 Below low normal [facility] (St [Mass/volume] in g/dL [facility] Blood [facility], ) Hematocrit 35.3 % Below low normal [facility] (St [Volume [facility] Fraction] of [facility], ) Blood by Automated count MCV 85 fL Normal (applies [facility] (St to non-numeric [facility] results) [facility], ) MCH 27.9 pg Normal (applies [facility] (St to non-numeric [facility]'s results) [facility], ) MCHC 32.9 Normal (applies [facility] (St g/dL to non-numeric [facility] results) [facility], ) RDW 13.6 % Normal (applies [facility] (St to non-numeric [facility] results) [facility], ) Platelets 303 Normal (applies [facility] (St [#/area] in x10E3/uL to non-numeric [facility] Blood by results) [facility], ) Microscopy high power field Neutrophils [#] 75 % Normal (applies [facility] ( St in Body fluid by to non-numeric [facility] Manual count results) [facility], ) Lymphs 17 % Normal (applies [facility] (St to non-numeric [facility]'s results) [facility], ) Eos 3 % Normal (applies [facility] (St to non-numeric [facility]'s results) [facility], ) Monocytes 5 % Normal (applies [facility] (St [#/volume] in to non-numeric [facility] Cord blood results) [facility], ) Basos 0 % Normal (applies [facility] (St to non-numeric [facility] results) [facility], ) Lymphs 1.3 Normal (applies [facility] (St (Absolute) x10E3/uL to non-numeric [facility] results) [facility], ) Neutrophils 5.8 Normal (applies [facility] (St (Absolute) x10E3/uL to non-numeric [facility] results) [facility], ) Monocytes(Absolu 0.4 Normal (applies [facility] (St te) x10E3/uL to non-numeric [facility] results) [facility], ) Eos (Absolute) 0.2 Normal (applies [facility] (S t x10E3/uL to non-numeric [facility] results) [facility], ) Baso (Absolute) 0.0 Normal (applies [facility] ( St x10E3/uL to non-numeric [facility] results) [facility], ) Immature 0 % Normal (applies [facility] (St Granulocytes to non-numeric [facility] results) [facility], ) Immature Grans 0.0 Normal (applies [facility] (S t (Abs) x10E3/uL to non-numeric [facility] results) [facility], ) ID Date Data Source [id number] 08/17/2018 12:00:00 AM EDT [facility] ([facility] Name Value Range Interpretation Code Description Data Kimberly rce(s) Supporting Document(s ) ID Date Data Source [id number] 08/17/2018 12:00:00 AM EDT [facility] ([facility]) Name Value Range Interpretation Description Data Sup porting Code Source(s) Document(s ) Request Test not Normal (applies to [facility] (St Problem performed non-numeric [facility] . results) Medical, PC) ID Date Data Source [id number] 08/17/2018 12:00:00 AM EDT [facility] ([facility]) Name Value Range Interpretation Description Data Sup porting Code Source(s) Document(s ) No Urine Test not Normal (applies to [facility] (St Received performed non-numeric [facility] . results) Medical, PC) ID Date Data Source [id number] 08/17/2018 12:00:00 AM EDT [facility] ([facility]) Name Value Range Interpretation Code Description Data Kimberly rce(s) Supporting Document(s ) Ambig Abbrev Normal (applies to [facility] ( St CMP14 non-numeric [facility] Default results) Medical, PC) ID Date Data Source [id number] 08/17/2018 12:00:00 AM EDT [facility] ([facility]) Name Value Range Interpretation Description Data Sup porting Code Source(s) Document(s ) Hemoglobin 9.0 % Above high normal [facility] (St A1c/Hemoglobin. [facility] total in Blood Medical, PC) ID Date Data Source [id number] 08/17/2018 12:00:00 AM EDT [facility] ([facility]) Name Value Range Interpretation Code Description Data Kimberly rce(s) Supporting Document(s ) PDF Image . Normal (applies to [facility] (St non-numeric results) [facility] dical, PC) ID Date Data Source [id number] 08/17/2018 12:00:00 AM EDT [facility] ([facility]) Name Value Range Interpretation Description Data Sup porting Code Source(s) Document(s ) Cholesterol 225 Above high normal [facility] (St [Mass/volume] in mg/dL [facility] Serum or Plasma Medical, ) Triglyceride 121 Normal (applies [facility] (St [Mass/volume] in mg/dL to non-numeric [facility] Serum or Plasma results) Medical, ) HDL Cholesterol 89 mg/dL Normal (applies [facility] ( St to non-numeric [facility] results) [facility], ) VLDL Cholesterol 24 mg/dL Normal (applies [facility] (St Vasile to non-numeric [facility] results) [facility], ) LDL Cholesterol 112 Above high normal [facility] (St Calc mg/dL [facility], ) ID Date Data Source [id number] 08/17/2018 12:00:00 AM EDT [facility] ([facility], ) Name Value Range Interpretation Description Data Sup porting Code Source(s) Document(s ) Leukocytes 7.7 Normal (applies [facility] (St [#/volume] in x10E3/uL to non-numeric [facility] Blood by results) Medical, ) Automated count Erythrocytes 4.16 Normal (applies [facility] (St [#/volume] in x10E6/uL to non-numeric [facility] Blood by results) [facility], ) Automated count Hemoglobin 11.6 Below low normal [facility] (St [Mass/volume] in g/dL [facility] Blood [facility], ) Hematocrit 35.3 % Below low normal [facility] (St [Volume [facility] Fraction] of [facility], ) Blood by Automated count MCV 85 fL Normal (applies [facility] (St to non-numeric [facility] results) [facility], ) MCH 27.9 pg Normal (applies [facility] (St to non-numeric [facility] results) Medical, ) MCHC 32.9 Normal (applies [facility] (St g/dL to non-numeric [facility] results) Medical, ) RDW 13.6 % Normal (applies [facility] (St to non-numeric [facility] results) Medical, ) Platelets 303 Normal (applies [facility] (St [#/area] in x10E3/uL to non-numeric [facility] Blood by results) Medical, ) Microscopy high power field Neutrophils [#] 75 % Normal (applies [facility] ( St in Body fluid by to non-numeric [facility] Manual count results) Medical, ) Lymphs 17 % Normal (applies [facility] (St to non-numeric [facility] results) [facility], ) Eos 3 % Normal (applies [facility] (St to non-numeric [facility] results) Medical, ) Monocytes 5 % Normal (applies [facility] (St [#/volume] in to non-numeric [facility] Cord blood results) Medical, ) Basos 0 % Normal (applies [facility] (St to non-numeric [facility] results) Medical, ) Neutrophils 5.8 Normal (applies [facility] (St (Absolute) x10E3/uL to non-numeric [facility] results) Medical, ) Lymphs 1.3 Normal (applies [facility] (St (Absolute) x10E3/uL to non-numeric [facility] results) Medical, ) Monocytes(Absolu 0.4 Normal (applies [facility] (St te) x10E3/uL to non-numeric [facility] results) Medical, ) Baso (Absolute) 0.0 Normal (applies [facility] ( St x10E3/uL to non-numeric [facility] results) Medical, ) Eos (Absolute) 0.2 Normal (applies [facility] (S t x10E3/uL to non-numeric [facility] results) Medical, ) Immature 0 % Normal (applies [facility] (St Granulocytes to non-numeric [facility] results) Medical, ) Immature Grans 0.0 Normal (applies [facility] (S t (Abs) x10E3/uL to non-numeric [facility] results) [facility], ) ID Date Data Source [id number] 08/17/2018 12:00:00 AM EDT [facility] ([facility], ) Name Value Range Interpretation Code Description Data Kimberly rce(s) Supporting Document(s ) ID Date Data Source [id number] 08/17/2018 12:00:00 AM EDT [facility] ([facility], ) Name Value Range Interpretation Description Data Sup porting Code Source(s) Document(s ) Request Test not Normal (applies to [facility] (St Problem performed non-numeric [facility] . results) [facility], ) ID Date Data Source [id number] 08/17/2018 12:00:00 AM EDT [facility] ([facility], ) Name Value Range Interpretation Description Data Sup porting Code Source(s) Document(s ) No Urine Test not Normal (applies to [facility] (St Received performed non-numeric [facility] . results) [facility], ) ID Date Data Source [id number] 08/17/2018 12:00:00 AM EDT MEDGEN ([facility], ) Name Value Range Interpretation Code Description Data Kimberly rce(s) Supporting Document(s ) Francisco Corrales Normal (applies to MEDGEN ( St CMP14 non-numeric Dony's Default results) [facility], ) ID Date Data Source [id number] 08/17/2018 12:00:00 AM EDT MEDGEN ([facility], ) Name Value Range Interpretation Description Data Sup porting Code Source(s) Document(s ) Hemoglobin 9.0 % Above high normal MEDGEN (St A1c/Hemoglobin. Dony's total in Blood [facility], ) ID Date Data Source [id number] 08/17/2018 12:00:00 AM EDT MEDGEN ([facility], ) Name Value Range Interpretation Code Description Data Kimberly rce(s) Supporting Document(s ) PDF Image . Normal (applies to MEDGEN (St non-numeric results) [facility]) ID Date Data Source [id number] 08/17/2018 12:00:00 AM EDT MEDGEN ([facility], ) Name Value Range Interpretation Description Data Sup porting Code Source(s) Document(s ) Cholesterol 225 Above high normal MEDGEN (St [Mass/volume] in mg/dL Dony's Serum or Plasma [facility], ) Triglyceride 121 Normal (applies MEDGEN (St [Mass/volume] in mg/dL to non-numeric Dony's Serum or Plasma results) [facility], ) HDL Cholesterol 89 mg/dL Normal (applies MEDGEN ( St to non-numeric Dony's results) [facility], ) VLDL Cholesterol 24 mg/dL Normal (applies MEDGEN (St Vasile to non-numeric Dony's results) [facility], ) LDL Cholesterol 112 Above high normal MEDGEN (St Calc mg/dL [facility], ) ID Date Data Source [id number] 08/17/2018 12:00:00 AM EDT [facility] ([facility], ) Name Value Range Interpretation Description Data Sup porting Code Source(s) Document(s ) Leukocytes 7.7 Normal (applies MEDGEN (St [#/volume] in x10E3/uL to non-numeric Dony's Blood by results) [facility], ) Automated count Erythrocytes 4.16 Normal (applies MEDGEN (St [#/volume] in x10E6/uL to non-numeric Dony's Blood by results) [facility], ) Automated count Hemoglobin 11.6 Below low normal MEDGEN (St [Mass/volume] in g/dL Dony's Blood [facility], ) Hematocrit 35.3 % Below low normal MEDGEN (St [Volume Dony's Fraction] of [facility], ) Blood by Automated count MCV 85 fL Normal (applies MEDGEN (St to non-numeric Dony's results) [facility], ) MCHC 32.9 Normal (applies MEDGEN (St g/dL to non-numeric Dony's results) [facility], ) MCH 27.9 pg Normal (applies MEDGEN (St to non-numeric Dony's results) [facility]) RDW 13.6 % Normal (applies MEDGEN (St to non-numeric Dony's results) [facility], ) Platelets 303 Normal (applies MEDGEN (St [#/area] in x10E3/uL to non-numeric Dony's Blood by results) [facility], ) Microscopy high power field Lymphs 17 % Normal (applies MEDGEN (St to non-numeric Dony's results) [facility], ) Neutrophils [#] 75 % Normal (applies MEDGEN ( St in Body fluid by to non-numeric Dony's Manual count results) [facility], ) Monocytes 5 % Normal (applies MEDGEN (St [#/volume] in to non-numeric Dony's Cord blood results) [facility], ) Eos 3 % Normal (applies MEDGEN (St to non-numeric Dony's results) [facility], ) Basos 0 % Normal (applies MEDGEN (St to non-numeric Dony's results) [facility], ) Neutrophils 5.8 Normal (applies MEDGEN (St (Absolute) x10E3/uL to non-numeric Dony's results) [facility], ) Lymphs 1.3 Normal (applies MEDGEN (St (Absolute) x10E3/uL to non-numeric Dony's results) [facility]) Monocytes(Absolu 0.4 Normal (applies MEDGEN (St te) x10E3/uL to non-numeric Dony's results) [facility], ) Baso (Absolute) 0.0 Normal (applies MEDGEN ( St x10E3/uL to non-numeric Dony's results) [facility], ) Eos (Absolute) 0.2 Normal (applies MEDGEN (S t x10E3/uL to non-numeric Dony's results) [facility]) Immature 0 % Normal (applies MEDGEN (St Granulocytes to non-numeric Dony's results) [facility]) Immature Grans 0.0 Normal (applies MEDGEN (S t (Abs) x10E3/uL to non-numeric Dony's results) [facility], ) ID Date Data Source [id number] 08/17/2018 12:00:00 AM EDT [facility] ([facility] ) Name Value Range Interpretation Code Description Data Kimberly rce(s) Supporting Document(s ) ID Date Data Source [id number] 08/17/2018 12:00:00 AM EDT [facility] ([facility] ) Name Value Range Interpretation Description Data Sup porting Code Source(s) Document(s ) Request Test not Normal (applies to MEDGEN (St Problem performed non-numeric Dony's . results) [facility], ) ID Date Data Source [id number] 08/17/2018 12:00:00 AM EDT [facility] ([facility] ) Name Value Range Interpretation Description Data Sup porting Code Source(s) Document(s ) No Urine Test not Normal (applies to MEDGEN (St Received performed non-numeric Dony's . results) [facility], ) ID Date Data Source [id number] 08/17/2018 12:00:00 AM EDT [facility] ([facility] ) Name Value Range Interpretation Code Description Data Kimberly rce(s) Supporting Document(s ) Francisco Corrales Normal (applies to MEDGEN ( St CMP14 non-numeric Dony's Default results) [facility], ) ID Date Data Source [id number] 08/17/2018 12:00:00 AM EDT [facility] ([facility] ) Name Value Range Interpretation Description Data Sup porting Code Source(s) Document(s ) Hemoglobin 9.0 % Above high normal MEDGEN (St A1c/Hemoglobin. Dony[facility] total in Blood [facility], ) ID Date Data Source [id number] 08/17/2018 12:00:00 AM EDT [facility] ([facility] ) Name Value Range Interpretation Code Description Data Kimberly rce(s) Supporting Document(s ) PDF Image . Normal (applies to MEDGEN (St non-numeric results) [facility]) ID Date Data Source [id number] 08/17/2018 12:00:00 AM EDT [facility] ( [facility], ) Name Value Range Interpretation Description Data Sup porting Code Source(s) Document(s ) Cholesterol 225 Above high normal MEDGEN (St [Mass/volume] in mg/dL Dony's Serum or Plasma [facility], ) Triglyceride 121 Normal (applies MEDGEN (St [Mass/volume] in mg/dL to non-numeric Dony's Serum or Plasma results) [facility]) HDL Cholesterol 89 mg/dL Normal (applies MEDGEN ( St to non-numeric Dony's results) [facility]) LDL Cholesterol 112 Above high normal MEDGEN (St Calc mg/dL [facility], ) VLDL Cholesterol 24 mg/dL Normal (applies MEDGEN (St Vasile to non-numeric Dony's results) [facility], ) ID Date Data Source [id number] 08/17/2018 12:00:00 AM EDT [facility] ( [facility], ) Name Value Range Interpretation Description Data Sup porting Code Source(s) Document(s ) Leukocytes 7.7 Normal (applies MEDGEN (St [#/volume] in x10E3/uL to non-numeric Dony's Blood by results) [facility], ) Automated count Erythrocytes 4.16 Normal (applies MEDGEN (St [#/volume] in x10E6/uL to non-numeric Dony's Blood by results) [facility], ) Automated count Hemoglobin 11.6 Below low normal MEDGEN (St [Mass/volume] in g/dL Dony's Blood [facility], ) Hematocrit 35.3 % Below low normal MEDGEN (St [Volume Dony's Fraction] of [facility], ) Blood by Automated count MCV 85 fL Normal (applies MEDGEN (St to non-numeric Dony's results) [facility], ) MCH 27.9 pg Normal (applies MEDGEN (St to non-numeric Dony's results) [facility], ) MCHC 32.9 Normal (applies MEDGEN (St g/dL to non-numeric Dony's results) [facility], ) RDW 13.6 % Normal (applies MEDGEN (St to non-numeric Dony's results) [facility], ) Platelets 303 Normal (applies MEDGEN (St [#/area] in x10E3/uL to non-numeric Dony's Blood by results) [facility], ) Microscopy high power field Neutrophils [#] 75 % Normal (applies MEDGEN ( St in Body fluid by to non-numeric Dony's Manual count results) [facility], ) Lymphs 17 % Normal (applies MEDGEN (St to non-numeric Dony's results) [facility], ) Monocytes 5 % Normal (applies MEDGEN (St [#/volume] in to non-numeric Dony's Cord blood results) [facility], ) Eos 3 % Normal (applies MEDGEN (St to non-numeric Dony's results) [facility], ) Basos 0 % Normal (applies MEDGEN (St to non-numeric Dony's results) [facility], ) Lymphs 1.3 Normal (applies MEDGEN (St (Absolute) x10E3/uL to non-numeric Dony's results) [facility], ) Neutrophils 5.8 Normal (applies MEDGEN (St (Absolute) x10E3/uL to non-numeric Dony's results) [facility]) Monocytes(Absolu 0.4 Normal (applies MEDGEN (St te) x10E3/uL to non-numeric Dony's results) [facility], ) Eos (Absolute) 0.2 Normal (applies MEDGEN (S t x10E3/uL to non-numeric Dony's results) [facility], ) Baso (Absolute) 0.0 Normal (applies MEDGEN ( St x10E3/uL to non-numeric Dony's results) [facility], ) Immature 0 % Normal (applies MEDGEN (St Granulocytes to non-numeric Dony's results) [facility]) Immature Grans 0.0 Normal (applies MEDGEN (S t (Abs) x10E3/uL to non-numeric Dony's results) [facility], ) ID Date Data Source [id number] 08/17/2018 12:00:00 AM EDT [facility] ([facility], ) Name Value Range Interpretation Code Description Data Kimberly rce(s) Supporting Document(s ) ID Date Data Source [id number] 08/17/2018 12:00:00 AM EDT [facility] ([facility], ) Name Value Range Interpretation Description Data Sup porting Code Source(s) Document(s ) Request Test not Normal (applies to MEDGEN (St Problem performed non-numeric Dony's . results) [facility], ) ID Date Data Source [id number] 08/17/2018 12:00:00 AM EDT [facility] ([facility], ) Name Value Range Interpretation Description Data Sup porting Code Source(s) Document(s ) No Urine Test not Normal (applies to MEDGEN (St Received performed non-numeric Dony's . results) [facility], ) ID Date Data Source [id number] 08/17/2018 12:00:00 AM EDT [facility] ([facility], ) Name Value Range Interpretation Code Description Data Kimberly rce(s) Supporting Document(s ) Francisco Quirozv Normal (applies to MEDGEN ( St CMP14 non-numeric Dony's Default results) [facility], ) ID Date Data Source [id number] 08/17/2018 12:00:00 AM EDT MED[facility] ([facility], ) Name Value Range Interpretation Description Data Sup porting Code Source(s) Document(s ) Hemoglobin 9.0 % Above high normal MEDGEN (St A1c/Hemoglobin. Dony's total in Blood [facility], ) ID Date Data Source [id number] 08/17/2018 12:00:00 AM EDT [facility] ([facility], ) Name Value Range Interpretation Code Description Data Kimberly rce(s) Supporting Document(s ) PDF Image . Normal (applies to MEDGEN (St non-numeric results) [facility]) ID Date Data Source [id number] 08/17/2018 12:00:00 AM EDT [facility] ([facility] ) Name Value Range Interpretation Description Data Sup porting Code Source(s) Document(s ) Cholesterol 225 Above high normal MEDGEN (St [Mass/volume] in mg/dL Dony's Serum or Plasma [facility], ) Triglyceride 121 Normal (applies MEDGEN (St [Mass/volume] in mg/dL to non-numeric Dony's Serum or Plasma results) [facility], ) HDL Cholesterol 89 mg/dL Normal (applies MEDGEN ( St to non-numeric Dony's results) [facility], ) VLDL Cholesterol 24 mg/dL Normal (applies MEDGEN (St Vasile to non-numeric Dony's results) [facility], ) LDL Cholesterol 112 Above high normal MEDGEN (St Calc mg/dL [facility], ) ID Date Data Source [id number] 08/17/2018 12:00:00 AM EDT MED[facility] ([facility], ) Name Value Range Interpretation Description Data Sup porting Code Source(s) Document(s ) Leukocytes 7.7 Normal (applies MEDGEN (St [#/volume] in x10E3/uL to non-numeric Dony's Blood by results) [facility], ) Automated count Hemoglobin 11.6 Below low normal MEDGEN (St [Mass/volume] in g/dL Dony's Blood [facility], ) Erythrocytes 4.16 Normal (applies MEDGEN (St [#/volume] in x10E6/uL to non-numeric Dony's Blood by results) [facility], ) Automated count Hematocrit 35.3 % Below low normal MEDGEN (St [Volume Dony's Fraction] of [facility], ) Blood by Automated count MCH 27.9 pg Normal (applies MEDGEN (St to non-numeric Dony's results) [facility], ) MCV 85 fL Normal (applies MEDGEN (St to non-numeric Dony's results) [facility], ) MCHC 32.9 Normal (applies MEDGEN (St g/dL to non-numeric Dony's results) [facility], ) RDW 13.6 % Normal (applies MEDGEN (St to non-numeric Odny's results) [facility], ) Platelets 303 Normal (applies MEDGEN (St [#/area] in x10E3/uL to non-numeric Dony's Blood by results) [facility], ) Microscopy high power field Neutrophils [#] 75 % Normal (applies MEDGEN ( St in Body fluid by to non-numeric Dony's Manual count results) [facility], ) Lymphs 17 % Normal (applies MEDGEN (St to non-numeric Dony's results) [facility], ) Monocytes 5 % Normal (applies MEDGEN (St [#/volume] in to non-numeric Dony's Cord blood results) [facility], ) Eos 3 % Normal (applies MEDGEN (St to non-numeric Dony's results) [facility], ) Basos 0 % Normal (applies MEDGEN (St to non-numeric Dony's results) [facility], ) Lymphs 1.3 Normal (applies MEDGEN (St (Absolute) x10E3/uL to non-numeric Dony's results) [facility], ) Neutrophils 5.8 Normal (applies MEDGEN (St (Absolute) x10E3/uL to non-numeric Dony's results) [facility], ) Monocytes(Absolu 0.4 Normal (applies MEDGEN (St te) x10E3/uL to non-numeric Dony's results) [facility], ) Baso (Absolute) 0.0 Normal (applies MEDGEN ( St x10E3/uL to non-numeric Dony's results) [facility], ) Eos (Absolute) 0.2 Normal (applies MEDGEN (S t x10E3/uL to non-numeric Dony's results) [facility], ) Immature 0 % Normal (applies MEDGEN (St Granulocytes to non-numeric Dony's results) [facility], ) Immature Grans 0.0 Normal (applies MEDGEN (S t (Abs) x10E3/uL to non-numeric Dony's results) [facility], ) ID Date Data Source [id number] 08/17/2018 12:00:00 AM EDT [facility] ([facility], ) Name Value Range Interpretation Code Description Data Kimberly rce(s) Supporting Document(s ) ID Date Data Source [id number] 08/17/2018 12:00:00 AM EDT [facility] ([facility], ) Name Value Range Interpretation Description Data Sup porting Code Source(s) Document(s ) UIBC 191 ug/dL Normal (applies to MEDGEN (St non-numeric Dony's results) [facility], ) Iron 37 ug/dL Below low normal MEDGEN (St [Mass/volume] Dony's in Serum or Medical, ) Plasma Iron 16 % Normal (applies to MEDGEN (St saturation non-numeric Dony's [Mass results) [facility], ) Fraction] in Serum or Plasma No Urine Test not Normal (applies to MEDGEN (St Received performed non-numeric Dony's . results) [facility], ) ID Date Data Source [id number] 08/17/2018 12:00:00 AM EDT [facility] ([facility], ) Name Value Range Interpretation Code Description Data Kimberly rce(s) Supporting Document(s ) Ambig Abbrev Normal (applies to MEDGEN ( St CMP14 non-numeric Dony's Default results) [facility], ) ID Date Data Source [id number] 08/17/2018 12:00:00 AM EDT MED[facility] ([facility], ) Name Value Range Interpretation Description Data Sup porting Code Source(s) Document(s ) Hemoglobin 9.0 % Above high normal MEDGEN (St A1c/Hemoglobin. Dony's total in Blood [facility], ) ID Date Data Source [id number] 08/17/2018 12:00:00 AM EDT MEDGEN ([facility], ) Name Value Range Interpretation Code Description Data Kimberly rce(s) Supporting Document(s ) PDF Image . Normal (applies to MEDGEN (St non-numeric results) [facility]) ID Date Data Source [id number] 08/17/2018 12:00:00 AM EDT MEDGEN ([facility], ) Name Value Range Interpretation Description Data Sup porting Code Source(s) Document(s ) Cholesterol 225 Above high normal MEDGEN (St [Mass/volume] in mg/dL Dony's Serum or Plasma [facility], ) Triglyceride 121 Normal (applies MEDGEN (St [Mass/volume] in mg/dL to non-numeric Dony's Serum or Plasma results) [facility], ) HDL Cholesterol 89 mg/dL Normal (applies MEDGEN ( St to non-numeric Dony's results) [facility], ) VLDL Cholesterol 24 mg/dL Normal (applies MEDGEN (St Vasile to non-numeric Dony's results) [facility], ) LDL Cholesterol 112 Above high normal MEDGEN (St Calc mg/dL [facility], ) ID Date Data Source [id number] 08/17/2018 12:00:00 AM EDT MEDGEN ([facility], ) Name Value Range Interpretation Description Data Sup porting Code Source(s) Document(s ) Leukocytes 7.7 Normal (applies MEDGEN (St [#/volume] in x10E3/uL to non-numeric Dony's Blood by results) [facility], ) Automated count Erythrocytes 4.16 Normal (applies MEDGEN (St [#/volume] in x10E6/uL to non-numeric Dony's Blood by results) [facility], ) Automated count Hemoglobin 11.6 Below low normal MEDGEN (St [Mass/volume] in g/dL [facility] Blood [facility]) Hematocrit 35.3 % Below low normal MEDGEN (St [Volume Dony's Fraction] of [facility], ) Blood by Automated count MCV 85 fL Normal (applies MEDGEN (St to non-numeric Dony's results) [facility], ) MCH 27.9 pg Normal (applies MEDGEN (St to non-numeric Dony's results) [facility], ) MCHC 32.9 Normal (applies MEDGEN (St g/dL to non-numeric Dony's results) [facility], ) RDW 13.6 % Normal (applies MEDGEN (St to non-numeric Dony's results) [facility], ) Platelets 303 Normal (applies MEDGEN (St [#/area] in x10E3/uL to non-numeric Dony's Blood by results) [facility], ) Microscopy high power field Neutrophils [#] 75 % Normal (applies MEDGEN ( St in Body fluid by to non-numeric Dony's Manual count results) [facility], ) Lymphs 17 % Normal (applies MEDGEN (St to non-numeric Dony's results) [facility], ) Monocytes 5 % Normal (applies MEDGEN (St [#/volume] in to non-numeric Dony's Cord blood results) [facility], ) Eos 3 % Normal (applies MEDGEN (St to non-numeric Dony's results) [facility], ) Basos 0 % Normal (applies MEDGEN (St to non-numeric Dony's results) [facility], ) Neutrophils 5.8 Normal (applies MEDGEN (St (Absolute) x10E3/uL to non-numeric Dony's results) [facility], ) Lymphs 1.3 Normal (applies MEDGEN (St (Absolute) x10E3/uL to non-numeric Dony's results) [facility], ) Monocytes(Absolu 0.4 Normal (applies MEDGEN (St te) x10E3/uL to non-numeric Dony's results) [facility], ) Eos (Absolute) 0.2 Normal (applies MEDGEN (S t x10E3/uL to non-numeric Dony's results) [facility], ) Baso (Absolute) 0.0 Normal (applies MEDGEN ( St x10E3/uL to non-numeric Dony's results) [facility], ) Immature 0 % Normal (applies MEDGEN (St Granulocytes to non-numeric Dony's results) [facility], ) Immature Grans 0.0 Normal (applies MEDGEN (S t (Abs) x10E3/uL to non-numeric Dony's results) [facility], ) ID Date Data Source [id number] 08/17/2018 12:00:00 AM EDT [facility] ([facility] Name Value Range Interpretation Code Description Data Kimberly rce(s) Supporting Document(s ) ID Date Data Source [id number] 08/17/2018 12:00:00 AM EDT [facility] ([facility] Name Value Range Interpretation Description Data Sup porting Code Source(s) Document(s ) Request Test not Normal (applies to MEDGEN (St Problem performed non-numeric Dony's . results) [facility], ) ID Date Data Source [id number] 08/17/2018 12:00:00 AM EDT [facility] ([facility]) Name Value Range Interpretation Description Data Sup porting Code Source(s) Document(s ) No Urine Test not Normal (applies to MEDGEN (St Received performed non-numeric Dony's . results) [facility], ) ID Date Data Source [id number] 08/17/2018 12:00:00 AM EDT [facility] ([facility] Name Value Range Interpretation Code Description Data Kimberly rce(s) Supporting Document(s ) Ambig Abbrev Normal (applies to [facility] ( St CMP14 non-numeric [facility] Default results) Medical, ) ID Date Data Source [id number] 08/17/2018 12:00:00 AM EDT [facility] ([facility]) Name Value Range Interpretation Description Data Sup porting Code Source(s) Document(s ) Hemoglobin 9.0 % Above high normal [facility] (St A1c/Hemoglobin. [facility] total in Blood Medical, ) ID Date Data Source [id number] 08/17/2018 12:00:00 AM EDT [facility] ([facility]) Name Value Range Interpretation Code Description Data Kimberly rce(s) Supporting Document(s ) PDF Image . Normal (applies to [facility] (St non-numeric results) [facility], ) ID Date Data Source [id number] 08/17/2018 12:00:00 AM EDT [facility] ([facility]) Name Value Range Interpretation Description Data Sup porting Code Source(s) Document(s ) Cholesterol 225 Above high normal [facility] (St [Mass/volume] in mg/dL [facility] Serum or Plasma [facility], ) Triglyceride 121 Normal (applies [facility] (St [Mass/volume] in mg/dL to non-numeric [facility] Serum or Plasma results) [facility], ) HDL Cholesterol 89 mg/dL Normal (applies [facility] ( St to non-numeric [facility] results) [facility], ) VLDL Cholesterol 24 mg/dL Normal (applies [facility] (St Vasile to non-numeric [facility] results) [facility], ) LDL Cholesterol 112 Above high normal [facility] (St Calc mg/dL [facility], ) ID Date Data Source [id number] 08/17/2018 12:00:00 AM EDT [facility] ([facility], ) Name Value Range Interpretation Description Data Sup porting Code Source(s) Document(s ) Leukocytes 7.7 Normal (applies [facility] (St [#/volume] in x10E3/uL to non-numeric [facility] Blood by results) [facility], ) Automated count Erythrocytes 4.16 Normal (applies [facility] (St [#/volume] in x10E6/uL to non-numeric [facility] Blood by results) [facility], ) Automated count Hemoglobin 11.6 Below low normal [facility] (St [Mass/volume] in g/dL [facility] Blood [facility], ) Hematocrit 35.3 % Below low normal [facility] (St [Volume [facility] Fraction] of [facility], ) Blood by Automated count MCV 85 fL Normal (applies [facility] (St to non-numeric [facility] results) [facility], ) MCHC 32.9 Normal (applies [facility] (St g/dL to non-numeric [facility] results) [facility], ) MCH 27.9 pg Normal (applies [facility] (St to non-numeric [facility] results) [facility], ) RDW 13.6 % Normal (applies [facility] (St to non-numeric [facility] results) [facility], ) Neutrophils [#] 75 % Normal (applies [facility] ( St in Body fluid by to non-numeric [facility] Manual count results) [facility], ) Platelets 303 Normal (applies [facility] (St [#/area] in x10E3/uL to non-numeric [facility] Blood by results) [facility], ) Microscopy high power field Lymphs 17 % Normal (applies [facility] (St to non-numeric [facility] results) [facility]) Monocytes 5 % Normal (applies [facility] (St [#/volume] in to non-numeric [facility] Cord blood results) [facility]) Basos 0 % Normal (applies [facility] (St to non-numeric [facility] results) [facility]) Eos 3 % Normal (applies [facility] (St to non-numeric [facility] results) [facility]) Neutrophils 5.8 Normal (applies [facility] (St (Absolute) x10E3/uL to non-numeric [facility] results) [facility]) Lymphs 1.3 Normal (applies [facility] (St (Absolute) x10E3/uL to non-numeric [facility] results) [facility]) Monocytes(Absolu 0.4 Normal (applies [facility] (St te) x10E3/uL to non-numeric [facility] results) [facility]) Eos (Absolute) 0.2 Normal (applies [facility] (S t x10E3/uL to non-numeric [facility] results) [facility]) Baso (Absolute) 0.0 Normal (applies [facility] ( St x10E3/uL to non-numeric [facility] results) [facility]) Immature Grans 0.0 Normal (applies [facility] (S t (Abs) x10E3/uL to non-numeric [facility] results) [facility]) Immature 0 % Normal (applies [facility] (St Granulocytes to non-numeric [facility] results) [facility]) ID Date Data Source [id number] 08/17/2018 12:00:00 AM EDT [facility] ([facility], ) Name Value Range Interpretation Description Data Sup porting Code Source(s) Document(s ) No Urine Test not Normal (applies to [facility] (St Received performed non-numeric [facility] . results) [facility]) ID Date Data Source [id number] 08/17/2018 12:00:00 AM EDT [facility] ([facility], ) Name Value Range Interpretation Description Data Sup porting Code Source(s) Document(s ) Urea nitrogen 41 mg/dL Above high normal [facility] ( St [Mass/volume] [facility] in Serum or [facility], ) Plasma Creatinine 1.94 Above high normal [facility] (St [Interpretation mg/dL [facility] ] in Urine [facility], ) eGFR If 39 Below low normal [facility] (St NonAfricn Am mL/min/1. [address]) BUN/Creatinine 21 Above high normal [facility] (St Ratio [facility], ) eGFR If Africn 45 Below low normal [facility] ( St Am mL/min/1. [address], ) Sodium 141 Normal (applies [facility] (St [Moles/volume] mmol/L to non-numeric [facility] in Serum or results) [facility]) Plasma Potassium 5.5 Above high normal [facility] (St [Mass/volume] mmol/L [facility] in Blood [facility]) Chloride 105 Normal (applies [facility] (St [Moles/volume] mmol/L to non-numeric [facility] in Serum or results) [facility]) Plasma Carbon dioxide, 21 mmol/L Normal (applies [facility] ( St total to non-numeric [facility] [Moles/volume] results) [facility]) in Serum or Plasma Calcium 9.3 mg/dL Normal (applies [facility] (St [Moles/volume] to non-numeric [facility] in Urine results) [facility]) collected for unspecified duration Ambig Gabriellav Normal (applies [facility] (St CMP14 Default to non-numeric [facility] results) [facility]) ID Date Data Source [id number] 08/17/2018 12:00:00 AM EDT [facility] ([facility], ) Name Value Range Interpretation Code Description Data Kimberly rce(s) Supporting Document(s ) PDF Image . Normal (applies to [facility] (St non-numeric results) [facility]ony's [facility]) ID Date Data Source [id number] 08/17/2018 12:00:00 AM EDT [facility] ([facility], ) Name Value Range Interpretation Description Data Sup porting Code Source(s) Document(s ) Leukocytes 7.7 Normal (applies [facility] (St [#/volume] in x10E3/uL to non-numeric [facility] Blood by results) [facility]) Automated count Erythrocytes 4.16 Normal (applies [facility] (St [#/volume] in x10E6/uL to non-numeric [facility] Blood by results) [facility]) Automated count Hemoglobin 11.6 Below low normal [facility] (St [Mass/volume] in g/dL [facility] Blood [facility], ) Hematocrit 35.3 % Below low normal [facility] (St [Volume [facility] Fraction] of [facility], ) Blood by Automated count MCV 85 fL Normal (applies [facility] (St to non-numeric [facility] results) [facility], ) MCH 27.9 pg Normal (applies [facility] (St to non-numeric [facility] results) [facility], ) MCHC 32.9 Normal (applies [facility] (St g/dL to non-numeric [facility] results) [facility], ) RDW 13.6 % Normal (applies [facility] (St to non-numeric [facility] results) [facility], ) Platelets 303 Normal (applies [facility] (St [#/area] in x10E3/uL to non-numeric [facility] Blood by results) [facility], ) Microscopy high power field Lymphs 17 % Normal (applies [facility] (St to non-numeric [facility] results) [facility], ) Neutrophils [#] 75 % Normal (applies [facility] ( St in Body fluid by to non-numeric [facility] Manual count results) [facility], ) Monocytes 5 % Normal (applies [facility] (St [#/volume] in to non-numeric [facility] Cord blood results) [facility], ) Eos 3 % Normal (applies [facility] (St to non-numeric [facility] results) [facility], ) Basos 0 % Normal (applies [facility] (St to non-numeric [facility] results) [facility], ) Neutrophils 5.8 Normal (applies [facility] (St (Absolute) x10E3/uL to non-numeric [facility] results) [facility], ) Lymphs 1.3 Normal (applies [facility] (St (Absolute) x10E3/uL to non-numeric [facility] results) [facility], ) Monocytes(Absolu 0.4 Normal (applies [facility] (St te) x10E3/uL to non-numeric [facility] results) [facility], ) Eos (Absolute) 0.2 Normal (applies [facility] (S t x10E3/uL to non-numeric [facility] results) [facility], ) Baso (Absolute) 0.0 Normal (applies [facility] ( St x10E3/uL to non-numeric [facility] results) [facility], ) Immature 0 % Normal (applies [facility] (St Granulocytes to non-numeric [facility] results) Medical, ) Immature Grans 0.0 Normal (applies [facility] (S t (Abs) x10E3/uL to non-numeric [facility] results) Medical, ) ID Date Data Source [id number] 08/17/2018 12:00:00 AM EDT [facility] ([facility], ) Name Value Range Interpretation Description Data Sup porting Code Source(s) Document(s ) Request Test not Normal (applies to [facility] (St Problem performed non-numeric [facility] . results) Medical, ) ID Date Data Source [id number] 08/17/2018 12:00:00 AM EDT [facility] ([facility], ) Name Value Range Interpretation Description Data Sup porting Code Source(s) Document(s ) No Urine Test not Normal (applies to [facility] (St Received performed non-numeric [facility] . results) Medical, ) ID Date Data Source [id number] 08/17/2018 12:00:00 AM EDT [facility] ([facility], ) Name Value Range Interpretation Code Description Data Kimberly rce(s) Supporting Document(s ) PDF Image . Normal (applies to [facility] (St non-numeric results) [facility], ) ID Date Data Source [id number] 08/17/2018 12:00:00 AM EDT [facility] ([facility], ) Name Value Range Interpretation Description Data Sup porting Code Source(s) Document(s ) Cholesterol 225 Above high normal [facility] (St [Mass/volume] in mg/dL [facility] Serum or Plasma Medical, ) Triglyceride 121 Normal (applies [facility] (St [Mass/volume] in mg/dL to non-numeric [facility] Serum or Plasma results) Medical, ) HDL Cholesterol 89 mg/dL Normal (applies [facility] ( St to non-numeric [facility] results) Medical, ) LDL Cholesterol 112 Above high normal [facility] (St Calc mg/dL [facility], ) VLDL Cholesterol 24 mg/dL Normal (applies [facility] (St Vasile to non-numeric [facility] results) Medical, ) ID Date Data Source [id number] 08/17/2018 12:00:00 AM EDT [facility] ([facility], ) Name Value Range Interpretation Description Data Sup porting Code Source(s) Document(s ) Leukocytes 7.7 Normal (applies [facility] (St [#/volume] in x10E3/uL to non-numeric [facility] Blood by results) [facility], ) Automated count Erythrocytes 4.16 Normal (applies [facility] (St [#/volume] in x10E6/uL to non-numeric [facility] Blood by results) [facility]) Automated count Hemoglobin 11.6 Below low normal [facility] (St [Mass/volume] in g/dL [facility] Blood [facility]) MCV 85 fL Normal (applies [facility] (St to non-numeric [facility]'s results) [facility]) Hematocrit 35.3 % Below low normal [facility] (St [Volume [facility] Fraction] of [facility]) Blood by Automated count MCH 27.9 pg Normal (applies [facility] (St to non-numeric [facility]'s results) [facility]) MCHC 32.9 Normal (applies [facility] (St g/dL to non-numeric [facility] results) [facility]) RDW 13.6 % Normal (applies [facility] (St to non-numeric [facility]'s results) [facility]) Platelets 303 Normal (applies [facility] (St [#/area] in x10E3/uL to non-numeric [facility] Blood by results) [facility], ) Microscopy high power field Lymphs 17 % Normal (applies [facility] (St to non-numeric [facility] results) [facility]) Neutrophils [#] 75 % Normal (applies [facility] ( St in Body fluid by to non-numeric [facility] Manual count results) [facility], ) Eos 3 % Normal (applies [facility] (St to non-numeric [facility]'s results) [facility]) Monocytes 5 % Normal (applies [facility] (St [#/volume] in to non-numeric [facility] Cord blood results) [facility]) Basos 0 % Normal (applies [facility] (St to non-numeric [facility] results) [facility]) Lymphs 1.3 Normal (applies [facility] (St (Absolute) x10E3/uL to non-numeric [facility] results) [facility]) Neutrophils 5.8 Normal (applies [facility] (St (Absolute) x10E3/uL to non-numeric [facility]'s results) [facility]) Monocytes(Absolu 0.4 Normal (applies [facility] (St te) x10E3/uL to non-numeric [facility] results) Medical, ) Baso (Absolute) 0.0 Normal (applies [facility] ( St x10E3/uL to non-numeric [facility] results) Medical, ) Eos (Absolute) 0.2 Normal (applies [facility] (S t x10E3/uL to non-numeric [facility] results) Medical, ) Immature Grans 0.0 Normal (applies [facility] (S t (Abs) x10E3/uL to non-numeric [facility] results) Medical, ) Immature 0 % Normal (applies [facility] (St Granulocytes to non-numeric [facility] results) Medical, ) ID Date Data Source [id number] 08/17/2018 12:00:00 AM EDT [facility] ([facility] Name Value Range Interpretation Code Description Data Kimberly rce(s) Supporting Document(s ) ID Date Data Source [id number] 08/17/2018 12:00:00 AM EDT [facility] ([facility]) Name Value Range Interpretation Description Data Sup porting Code Source(s) Document(s ) Request Test not Normal (applies to [facility] (St Problem performed non-numeric [facility] . results) Medical, ) ID Date Data Source [id number] 08/17/2018 12:00:00 AM EDT [facility] ([facility]) Name Value Range Interpretation Description Data Sup porting Code Source(s) Document(s ) No Urine Test not Normal (applies to [facility] (St Received performed non-numeric [facility] . results) Medical, ) ID Date Data Source [id number] 08/17/2018 12:00:00 AM EDT [facility] ([facility]) Name Value Range Interpretation Code Description Data Kimberly rce(s) Supporting Document(s ) ID Date Data Source [id number] 08/17/2018 12:00:00 AM EDT [facility] ([facility]) Name Value Range Interpretation Description Data Sup porting Code Source(s) Document(s ) Hemoglobin 9.0 % Above high normal [facility] (St A1c/Hemoglobin. [facility] total in Blood Medical, ) ID Date Data Source [id number] 08/17/2018 12:00:00 AM EDT [facility] ([facility]) Name Value Range Interpretation Code Description Data Kimberly rce(s) Supporting Document(s ) PDF Image . Normal (applies to [facility] (St non-numeric results) Dony's [facility]) ID Date Data Source [id number] 08/17/2018 12:00:00 AM EDT [facility] ([facility], ) Name Value Range Interpretation Description Data Sup porting Code Source(s) Document(s ) Cholesterol 225 Above high normal [facility] (St [Mass/volume] in mg/dL [facility] Serum or Plasma [facility], ) HDL Cholesterol 89 mg/dL Normal (applies [facility] ( St to non-numeric [facility]'s results) [facility], ) Triglyceride 121 Normal (applies [facility] (St [Mass/volume] in mg/dL to non-numeric [facility] Serum or Plasma results) [facility], ) LDL Cholesterol 112 Above high normal [facility] (St Calc mg/dL [facility], ) VLDL Cholesterol 24 mg/dL Normal (applies [facility] (St Vasile to non-numeric [facility]'s results) [facility], ) ID Date Data Source [id number] 08/17/2018 12:00:00 AM EDT [facility] ([facility], ) Name Value Range Interpretation Description Data Sup porting Code Source(s) Document(s ) Leukocytes 7.7 Normal (applies [facility] (St [#/volume] in x10E3/uL to non-numeric [facility] Blood by results) [facility], ) Automated count Erythrocytes 4.16 Normal (applies [facility] (St [#/volume] in x10E6/uL to non-numeric [facility] Blood by results) [facility], ) Automated count Hemoglobin 11.6 Below low normal [facility] (St [Mass/volume] in g/dL [facility] Blood [facility], ) Hematocrit 35.3 % Below low normal [facility] (St [Volume [facility]'s Fraction] of [facility], ) Blood by Automated count MCV 85 fL Normal (applies [facility] (St to non-numeric [facility]'s results) [facility], ) MCHC 32.9 Normal (applies [facility] (St g/dL to non-numeric [facility] results) [facility], ) MCH 27.9 pg Normal (applies [facility] (St to non-numeric [facility]'s results) [facility], ) RDW 13.6 % Normal (applies [facility] (St to non-numeric [facility]'s results) Medical, ) Neutrophils [#] 75 % Normal (applies [facility] ( St in Body fluid by to non-numeric [facility] Manual count results) Medical, ) Platelets 303 Normal (applies [facility] (St [#/area] in x10E3/uL to non-numeric [facility] Blood by results) [facility], ) Microscopy high power field Monocytes 5 % Normal (applies [facility] (St [#/volume] in to non-numeric [facility] Cord blood results) Medical, ) Lymphs 17 % Normal (applies [facility] (St to non-numeric [facility] results) Medical, ) Eos 3 % Normal (applies [facility] (St to non-numeric [facility]'s results) Medical, ) Basos 0 % Normal (applies [facility] (St to non-numeric [facility]'s results) Medical, ) Neutrophils 5.8 Normal (applies [facility] (St (Absolute) x10E3/uL to non-numeric [facility] results) Medical, ) Lymphs 1.3 Normal (applies [facility] (St (Absolute) x10E3/uL to non-numeric [facility] results) Medical, ) Monocytes(Absolu 0.4 Normal (applies [facility] (St te) x10E3/uL to non-numeric [facility] results) Medical, ) Eos (Absolute) 0.2 Normal (applies [facility] (S t x10E3/uL to non-numeric [facility] results) Medical, ) Baso (Absolute) 0.0 Normal (applies [facility] ( St x10E3/uL to non-numeric [facility] results) Medical, ) Immature 0 % Normal (applies [facility] (St Granulocytes to non-numeric [facility] results) Medical, ) Immature Grans 0.0 Normal (applies [facility] (S t (Abs) x10E3/uL to non-numeric [facility] results) [facility], ) ID Date Data Source [id number] 08/17/2018 12:00:00 AM EDT [facility] ([facility], ) Name Value Range Interpretation Code Description Data Kimberly rce(s) Supporting Document(s ) ID Date Data Source [id number] 08/17/2018 12:00:00 AM EDT [facility] ([facility], ) Name Value Range Interpretation Description Data Sup porting Code Source(s) Document(s ) Request Test not Normal (applies to [facility] (St Problem performed non-numeric [facility] . results) Medical, ) ID Date Data Source [id number] 08/17/2018 12:00:00 AM EDT [facility] ([facility], ) Name Value Range Interpretation Description Data Sup porting Code Source(s) Document(s ) No Urine Test not Normal (applies to [facility] (St Received performed non-numeric [facility] . results) Medical, ) ID Date Data Source [id number] 08/17/2018 12:00:00 AM EDT [facility], ) Name Value Range Interpretation Code Description Data Kimberly rce(s) Supporting Document(s ) Francisco Quirozv Normal (applies to MED[facility] ( St CMP14 non-numeric [facility] Default results) [facility], ) ID Date Data Source [id number] 08/17/2018 12:00:00 AM EDT [facility] ([facility], ) Name Value Range Interpretation Description Data Sup porting Code Source(s) Document(s ) Hemoglobin 9.0 % Above high normal [facility] (St A1c/Hemoglobin. [facility] total in Blood [facility], ) ID Date Data Source [id number] 08/17/2018 12:00:00 AM EDT [facility] ([facility], ) Name Value Range Interpretation Code Description Data Kimberly rce(s) Supporting Document(s ) PDF Image . Normal (applies to [facility] (St non-numeric results) [facility] ID Date Data Source [id number] 08/17/2018 12:00:00 AM EDT [facility] ([facility], ) Name Value Range Interpretation Description Data Sup porting Code Source(s) Document(s ) Cholesterol 225 Above high normal [facility] (St [Mass/volume] in mg/dL [facility] Serum or Plasma [facility], ) Triglyceride 121 Normal (applies [facility] (St [Mass/volume] in mg/dL to non-numeric [facility] Serum or Plasma results) Medical, ) HDL Cholesterol 89 mg/dL Normal (applies [facility] ( St to non-numeric [facility]ony's results) [facility], ) VLDL Cholesterol 24 mg/dL Normal (applies [facility] (St Vasile to non-numeric [facility]'s results) Medical, ) LDL Cholesterol 112 Above high normal [facility] (St Calc mg/dL [facility], ) ID Date Data Source [id number] 08/17/2018 12:00:00 AM EDT [facility] ([facility], ) Name Value Range Interpretation Description Data Sup porting Code Source(s) Document(s ) Leukocytes 7.7 Normal (applies [facility] (St [#/volume] in x10E3/uL to non-numeric [facility] Blood by results) Medical, ) Automated count Erythrocytes 4.16 Normal (applies [facility] (St [#/volume] in x10E6/uL to non-numeric [facility] Blood by results) Medical, ) Automated count Hemoglobin 11.6 Below low normal [facility] (St [Mass/volume] in g/dL Dony's Blood [facility], ) Hematocrit 35.3 % Below low normal MED[facility] (St [Volume Dony's Fraction] of [facility], ) Blood by Automated count MCV 85 fL Normal (applies [facility] (St to non-numeric Dony's results) [facility], ) MCH 27.9 pg Normal (applies [facility] (St to non-numeric Dony's results) [facility], ) MCHC 32.9 Normal (applies [facility] (St g/dL to non-numeric Dony's results) [facility], ) RDW 13.6 % Normal (applies [facility] (St to non-numeric Dony's results) [facility], ) Platelets 303 Normal (applies [facility] (St [#/area] in x10E3/uL to non-numeric Dony's Blood by results) Medical, ) Microscopy high power field Neutrophils [#] 75 % Normal (applies [facility] ( St in Body fluid by to non-numeric Dony's Manual count results) Medical, ) Lymphs 17 % Normal (applies [facility] (St to non-numeric Dony's results) Medical, ) Monocytes 5 % Normal (applies [facility] (St [#/volume] in to non-numeric Dony's Cord blood results) Medical, ) Eos 3 % Normal (applies [facility] (St to non-numeric Dony's results) Medical, ) Basos 0 % Normal (applies [facility] (St to non-numeric Dony's results) Medical, ) Neutrophils 5.8 Normal (applies [facility] (St (Absolute) x10E3/uL to non-numeric Dony's results) Medical, ) Lymphs 1.3 Normal (applies [facility] (St (Absolute) x10E3/uL to non-numeric Dony's results) Medical, ) Monocytes(Absolu 0.4 Normal (applies MED[facility] (St te) x10E3/uL to non-numeric Dony's results) Medical, ) Baso (Absolute) 0.0 Normal (applies [facility] ( St x10E3/uL to non-numeric Dony's results) Medical, ) Eos (Absolute) 0.2 Normal (applies [facility] (S t x10E3/uL to non-numeric Dony's results) Medical, ) Immature 0 % Normal (applies [facility] (St Granulocytes to non-numeric Dony's results) Medical, ) Immature Grans 0.0 Normal (applies [facility] (S t (Abs) x10E3/uL to non-numeric Dony's results) Medical, ) ID Date Data Source [id number] 08/17/2018 12:00:00 AM EDT [facility] ([facility], ) Name Value Range Interpretation Code Description Data Kimberly rce(s) Supporting Document(s ) ID Date Data Source [id number] 08/17/2018 12:00:00 AM EDT [facility] ([facility], ) Name Value Range Interpretation Description Data Sup porting Code Source(s) Document(s ) Request Test not Normal (applies to [facility] (St Problem performed non-numeric Dony's . results) Medical, ) ID Date Data Source [id number] 08/17/2018 12:00:00 AM EDT [facility] ([facility], ) Name Value Range Interpretation Description Data Sup porting Code Source(s) Document(s ) No Urine Test not Normal (applies to [facility] (St Received performed non-numeric Dony's . results) Medical, ) ID Date Data Source [id number] 08/17/2018 12:00:00 AM EDT [facility] ([facility], ) Name Value Range Interpretation Code Description Data Kimberly rce(s) Supporting Document(s ) ID Date Data Source [id number] 08/17/2018 12:00:00 AM EDT [facility] ([facility] Name Value Range Interpretation Description Data Sup porting Code Source(s) Document(s ) Hemoglobin 9.0 % Above high normal [facility] (St A1c/Hemoglobin. Dony's total in Blood [facility], ) ID Date Data Source [id number] 08/17/2018 12:00:00 AM EDT [facility] ([facility], ) Name Value Range Interpretation Code Description Data Kimberly rce(s) Supporting Document(s ) PDF Image . Normal (applies to [facility] (St non-numeric results) [facility]) ID Date Data Source [id number] 08/17/2018 12:00:00 AM EDT [facility] ([facility], ) Name Value Range Interpretation Description Data Sup porting Code Source(s) Document(s ) Cholesterol 225 Above high normal [facility] (St [Mass/volume] in mg/dL [facility] Serum or Plasma [facility], ) Triglyceride 121 Normal (applies [facility] (St [Mass/volume] in mg/dL to non-numeric Dony's Serum or Plasma results) [facility]) HDL Cholesterol 89 mg/dL Normal (applies [facility] ( St to non-numeric Dony's results) [facility]) VLDL Cholesterol 24 mg/dL Normal (applies [facility] (St Vasile to non-numeric Dony's results) [facility]) LDL Cholesterol 112 Above high normal [facility] (St Calc mg/dL [facility]) ID Date Data Source [id number] 08/17/2018 12:00:00 AM EDT [facility] ([facility], ) Name Value Range Interpretation Description Data Sup porting Code Source(s) Document(s ) Erythrocytes 4.16 Normal (applies [facility] (St [#/volume] in x10E6/uL to non-numeric Dony's Blood by results) [facility]) Automated count Leukocytes 7.7 Normal (applies [facility] (St [#/volume] in x10E3/uL to non-numeric Dony's Blood by results) [facility]) Automated count Hemoglobin 11.6 Below low normal [facility] (St [Mass/volume] in g/dL [facility]'s Blood [facility]) Hematocrit 35.3 % Below low normal [facility] (St [Volume Dony's Fraction] of [facility], ) Blood by Automated count MCV 85 fL Normal (applies [facility] (St to non-numeric Dony's results) [facility], ) MCH 27.9 pg Normal (applies [facility] (St to non-numeric Dony's results) [facility], ) MCHC 32.9 Normal (applies [facility] (St g/dL to non-numeric Dony's results) [facility], ) RDW 13.6 % Normal (applies [facility] (St to non-numeric Dony's results) [facility], ) Platelets 303 Normal (applies [facility] (St [#/area] in x10E3/uL to non-numeric Dony's Blood by results) [facility], ) Microscopy high power field Lymphs 17 % Normal (applies [facility] (St to non-numeric Dony's results) [facility], ) Neutrophils [#] 75 % Normal (applies [facility] ( St in Body fluid by to non-numeric Dony's Manual count results) [facility], ) Monocytes 5 % Normal (applies [facility] (St [#/volume] in to non-numeric Dony's Cord blood results) [facility], ) Eos 3 % Normal (applies [facility] (St to non-numeric Dony's results) [facility], ) Basos 0 % Normal (applies [facility] (St to non-numeric Dony's results) [facility], ) Neutrophils 5.8 Normal (applies [facility] (St (Absolute) x10E3/uL to non-numeric Dony's results) [facility], ) Monocytes(Absolu 0.4 Normal (applies [facility] (St te) x10E3/uL to non-numeric Dony's results) [facility], ) Lymphs 1.3 Normal (applies [facility] (St (Absolute) x10E3/uL to non-numeric Dony's results) [facility], ) Eos (Absolute) 0.2 Normal (applies [facility] (S t x10E3/uL to non-numeric Dony's results) [facility], ) Baso (Absolute) 0.0 Normal (applies [facility] ( St x10E3/uL to non-numeric Dony's results) [facility], ) Immature 0 % Normal (applies [facility] (St Granulocytes to non-numeric Dony's results) [facility], ) Immature Grans 0.0 Normal (applies [facility] (S t (Abs) x10E3/uL to non-numeric Dony's results) [facility], ) ID Date Data Source [id number] 08/17/2018 12:00:00 AM EDT [facility] ([facility]) Name Value Range Interpretation Code Description Data Kimberly rce(s) Supporting Document(s ) ID Date Data Source [id number] 08/17/2018 12:00:00 AM EDT [facility] ([facility]) Name Value Range Interpretation Description Data Sup porting Code Source(s) Document(s ) Request Test not Normal (applies to [facility] (St Problem performed non-numeric Dony's . results) [facility], PC) ID Date Data Source [id number] 08/17/2018 12:00:00 AM EDT [facility] ([facility]) Name Value Range Interpretation Description Data Sup porting Code Source(s) Document(s ) No Urine Test not Normal (applies to [facility] (St Received performed non-numeric [facility]'s . results) [facility], PC) No Urine Test not Normal (applies to [facility] (St Received performed non-numeric Dony's . results) [facility], [facility]) ID Date Data Source [id number] 08/17/2018 12:00:00 AM EDT [facility] ([facility]) Name Value Range Interpretation Code Description Data Kimberly rce(s) Supporting Document(s ) ID Date Data Source [id number] 08/17/2018 12:00:00 AM EDT [facility] ([facility]) Name Value Range Interpretation Description Data Sup porting Code Source(s) Document(s ) Hemoglobin 9.1 % Above high normal [facility] (St A1c/Hemoglobin [facility] .total in Medical, PC) Blood Hemoglobin 9.0 % Above high normal [facility] (St A1c/Hemoglobin [facility]'s .total in Medical, PC) Blood Hemoglobin 11.6 % Above high normal [facility] (St A1c/Hemoglobin [facility] .total in [facility], PC) Blood Hemoglobin 7.0 % Above high normal [facility] (St A1c/Hemoglobin [facility] .total in [facility], PC) Blood Hemoglobin 9.4 % Above high normal [facility] (St A1c/Hemoglobin [facility] .total in [facility], PC) Blood Hemoglobin 8.5 % Above high normal [facility] (St A1c/Hemoglobin [facility] .total in [facility], PC) Blood Hemoglobin 8.3 % Above high normal [facility] (St A1c/Hemoglobin [facility] .total in [facility], [facility]) Blood ID Date Data Source [id number] 08/17/2018 12:00:00 AM EDT [facility] ([facility], ) Name Value Range Interpretation Description Data Sup porting Code Source(s) Document(s ) PDF Image . Normal (applies to [facility] (St non-numeric Dony's results) Medical, ) PDF Image . Normal (applies to [facility] (St non-numeric Dony's results) Medical, ) PDF Image . Normal (applies to [facility] (St non-numeric Dony's results) Medical, ) PDF . Normal (applies to [facility] (St non-numeric Dony's results) Medical, ) PDF Not applicable Normal (applies to [facility] (St non-numeric Dony's results) Medical, ) PDF Image . Normal (applies to [facility] (St non-numeric Dony's results) Medical, ) PDF Image . Normal (applies to [facility] (St non-numeric Dony's results) Medical, ) PDF Image . Normal (applies to [facility] (St non-numeric Dony's results) Medical, ) PDF Image . Normal (applies to [facility] (St non-numeric Dony's results) Medical, ) PDF Image . Normal (applies to [facility] (St non-numeric Dony's results) Medical, ) PDF Image . Normal (applies to [facility] (St non-numeric [facility]'s results) Medical, ) ID Date Data Source [id number] 08/17/2018 12:00:00 AM EDT [facility] ([facility], ) Name Value Range Interpretation Description Data Sup porting Code Source(s) Document(s ) Cholesterol 225 Above high normal [facility] (St [Mass/volume] in mg/dL [facility] Serum or Plasma Medical, ) Triglyceride 121 Normal (applies [facility] (St [Mass/volume] in mg/dL to non-numeric [facility]'s Serum or Plasma results) Medical, ) VLDL Cholesterol 24 mg/dL Normal (applies [facility] (St Vasile to non-numeric Dony's results) [facility], ) HDL Cholesterol 89 mg/dL Normal (applies [facility] ( St to non-numeric Dony's results) [facility], ) LDL Cholesterol 112 Above high normal [facility] (St Calc mg/dL Dony's [facility], ) Cholesterol 181 Normal (applies [facility] (St [Mass/volume] in mg/dL to non-numeric Dony's Serum or Plasma results) [facility], ) HDL Cholesterol 86 mg/dL Normal (applies [facility] ( St to non-numeric Dony's results) [facility], ) Triglyceride 85 mg/dL Normal (applies [facility] (St [Mass/volume] in to non-numeric Dony's Serum or Plasma results) [facility], ) VLDL Cholesterol 17 mg/dL Normal (applies [facility] (St Vasile to non-numeric Dony's results) [facility], ) LDL Cholesterol 78 mg/dL Normal (applies [facility] ( St Calc to non-numeric Dony's results) [facility], ) ID Date Data Source [id number] 08/17/2018 12:00:00 AM EDT [facility] ([facility], ) Name Value Range Interpretation Description Data Sup porting Code Source(s) Document(s ) Leukocytes 7.7 Normal (applies [facility] (St [#/volume] in x10E3/uL to non-numeric Dony's Blood by results) [facility], ) Automated count Erythrocytes 4.16 Normal (applies [facility] (St [#/volume] in x10E6/uL to non-numeric Dony's Blood by results) [facility], ) Automated count Hemoglobin 11.6 Below low normal [facility] (St [Mass/volume] in g/dL Dony's Blood [facility], ) Hematocrit 35.3 % Below low normal [facility] (St [Volume Dony's Fraction] of [facility], ) Blood by Automated count MCV 85 fL Normal (applies [facility] (St to non-numeric Dony's results) [facility], ) MCHC 32.9 Normal (applies [facility] (St g/dL to non-numeric Dony's results) [facility], ) MCH 27.9 pg Normal (applies [facility] (St to non-numeric Dony's results) [facility], ) RDW 13.6 % Normal (applies [facility] (St to non-numeric Dony's results) [facility], ) Platelets 303 Normal (applies [facility] (St [#/area] in x10E3/uL to non-numeric Dony's Blood by results) [facility], ) Microscopy high power field Neutrophils [#] 75 % Normal (applies [facility] ( St in Body fluid by to non-numeric Dony's Manual count results) [facility], ) Lymphs 17 % Normal (applies [facility] (St to non-numeric Dony's results) Medical, ) Monocytes 5 % Normal (applies [facility] (St [#/volume] in to non-numeric Dony's Cord blood results) [facility], ) Eos 3 % Normal (applies [facility] (St to non-numeric Dony's results) Medical, ) Basos 0 % Normal (applies [facility] (St to non-numeric Dony's results) Medical, ) Lymphs 1.3 Normal (applies [facility] (St (Absolute) x10E3/uL to non-numeric Dony's results) Medical, ) Neutrophils 5.8 Normal (applies [facility] (St (Absolute) x10E3/uL to non-numeric Dony's results) Medical, ) Monocytes(Absolu 0.4 Normal (applies [facility] (St te) x10E3/uL to non-numeric Dony's results) Medical, ) Eos (Absolute) 0.2 Normal (applies [facility] (S t x10E3/uL to non-numeric Dony's results) [facility], ) Immature 0 % Normal (applies [facility] (St Granulocytes to non-numeric Dony's results) [facility], ) Baso (Absolute) 0.0 Normal (applies [facility] ( St x10E3/uL to non-numeric Dony's results) [facility], ) Immature Grans 0.0 Normal (applies [facility] (S t (Abs) x10E3/uL to non-numeric Dony's results) [facility], ) ID Date Data Source [id number] 08/17/2018 12:00:00 AM EDT [facility] ([facility], ) Name Value Range Interpretation Code Description Data Kimberly rce(s) Supporting Document(s ) Francisco Corrales Normal (applies to [facility] ( St CMP14 non-numeric Dony's Default results) [facility], ) ID Date Data Source [id number] 08/17/2018 12:00:00 AM EDT [facility] ([facility], ) Name Value Range Interpretation Description Data Sup porting Code Source(s) Document(s ) Hemoglobin 9.0 % Above high normal [facility] (St A1c/Hemoglobin. Dony's total in Blood [facility], ) ID Date Data Source [id number] 08/17/2018 12:00:00 AM EDT [facility] ([facility], ) Name Value Range Interpretation Code Description Data Kimberly rce(s) Supporting Document(s ) PDF Image . Normal (applies to [facility] (St non-numeric results) [facility]) ID Date Data Source [id number] 08/17/2018 12:00:00 AM EDT [facility] ([facility], ) Name Value Range Interpretation Description Data Sup porting Code Source(s) Document(s ) Leukocytes 7.7 Normal (applies [facility] (St [#/volume] in x10E3/uL to non-numeric [facility]'s Blood by results) Medical, ) Automated count Erythrocytes 4.16 Normal (applies [facility] (St [#/volume] in x10E6/uL to non-numeric Dony's Blood by results) [facility], ) Automated count Hemoglobin 11.6 Below low normal [facility] (St [Mass/volume] in g/dL Dony's Blood [facility], ) Hematocrit 35.3 % Below low normal [facility] (St [Volume Dony's Fraction] of [facility], ) Blood by Automated count MCV 85 fL Normal (applies [facility] (St to non-numeric Dony's results) [facility], ) MCHC 32.9 Normal (applies [facility] (St g/dL to non-numeric Dony's results) [facility], ) MCH 27.9 pg Normal (applies [facility] (St to non-numeric Dony's results) Medical, ) RDW 13.6 % Normal (applies [facility] (St to non-numeric Dony's results) [facility], ) Platelets 303 Normal (applies [facility] (St [#/area] in x10E3/uL to non-numeric Dony's Blood by results) [facility], ) Microscopy high power field Neutrophils [#] 75 % Normal (applies [facility] ( St in Body fluid by to non-numeric Dony's Manual count results) [facility], ) Lymphs 17 % Normal (applies [facility] (St to non-numeric Dony's results) Medical, ) Eos 3 % Normal (applies [facility] (St to non-numeric Dony's results) [facility], ) Monocytes 5 % Normal (applies [facility] (St [#/volume] in to non-numeric Dony's Cord blood results) [facility], ) Basos 0 % Normal (applies [facility] (St to non-numeric Dony's results) Medical, ) Neutrophils 5.8 Normal (applies [facility] (St (Absolute) x10E3/uL to non-numeric Dony's results) Medical, ) Lymphs 1.3 Normal (applies [facility] (St (Absolute) x10E3/uL to non-numeric Dony's results) Medical, ) Monocytes(Absolu 0.4 Normal (applies [facility] (St te) x10E3/uL to non-numeric Dony's results) Medical, ) Eos (Absolute) 0.2 Normal (applies [facility] (S t x10E3/uL to non-numeric Dony's results) Medical, ) Baso (Absolute) 0.0 Normal (applies [facility] ( St x10E3/uL to non-numeric Dony's results) Medical, ) Immature 0 % Normal (applies [facility] (St Granulocytes to non-numeric Dony's results) Medical, ) Immature Grans 0.0 Normal (applies [facility] (S t (Abs) x10E3/uL to non-numeric Dony's results) Medical, ) ID Date Data Source [id number] 08/17/2018 12:00:00 AM EDT [facility] ([facility], ) Name Value Range Interpretation Code Description Data Kimberly rce(s) Supporting Document(s ) ID Date Data Source [id number] 08/17/2018 12:00:00 AM EDT [facility] ([facility], ) Name Value Range Interpretation Description Data Sup porting Code Source(s) Document(s ) Request Test not Normal (applies to [facility] (St Problem performed non-numeric Dony's . results) Medical, ) ID Date Data Source [id number] 08/17/2018 12:00:00 AM EDT [facility] ([facility], ) Name Value Range Interpretation Description Data Sup porting Code Source(s) Document(s ) No Urine Test not Normal (applies to [facility] (St Received performed non-numeric Dony's . results) Medical, ) ID Date Data Source [id number] 08/17/2018 12:00:00 AM EDT [facility] ([facility], ) Name Value Range Interpretation Description Data Sup porting Code Source(s) Document(s ) Hemoglobin 9.0 % Above high normal [facility] (St A1c/Hemoglobin. Dony's total in Blood [facility], ) ID Date Data Source [id number] 08/17/2018 12:00:00 AM EDT [facility] ( [facility], ) Name Value Range Interpretation Code Description Data Kimberly rce(s) Supporting Document(s ) PDF Image . Normal (applies to [facility] (St non-numeric results) [facility]) ID Date Data Source [id number] 08/17/2018 12:00:00 AM EDT [facility] ([facility], ) Name Value Range Interpretation Description Data Sup porting Code Source(s) Document(s ) Cholesterol 225 Above high normal [facility] (St [Mass/volume] in mg/dL Dony's Serum or Plasma [facility], ) Triglyceride 121 Normal (applies [facility] (St [Mass/volume] in mg/dL to non-numeric Dony's Serum or Plasma results) [facility], ) HDL Cholesterol 89 mg/dL Normal (applies [facility] ( St to non-numeric Dony's results) [facility], ) VLDL Cholesterol 24 mg/dL Normal (applies [facility] (St Vasile to non-numeric Doyn's results) [facility], ) LDL Cholesterol 112 Above high normal [facility] (St Calc mg/dL [facility], ) ID Date Data Source [id number] 08/17/2018 12:00:00 AM EDT [facility] ( [facility], ) Name Value Range Interpretation Description Data Sup porting Code Source(s) Document(s ) Leukocytes 7.7 Normal (applies [facility] (St [#/volume] in x10E3/uL to non-numeric Dony's Blood by results) [facility], ) Automated count Erythrocytes 4.16 Normal (applies [facility] (St [#/volume] in x10E6/uL to non-numeric Dony's Blood by results) [facility], ) Automated count Hemoglobin 11.6 Below low normal [facility] (St [Mass/volume] in g/dL Dony's Blood [facility], ) Hematocrit 35.3 % Below low normal [facility] (St [Volume Dony's Fraction] of [facility], ) Blood by Automated count MCV 85 fL Normal (applies [facility] (St to non-numeric Dony's results) [facility], ) MCH 27.9 pg Normal (applies [facility] (St to non-numeric Dony's results) [facility], ) MCHC 32.9 Normal (applies [facility] (St g/dL to non-numeric Dony's results) [facility], ) RDW 13.6 % Normal (applies [facility] (St to non-numeric Dony's results) [facility], ) Platelets 303 Normal (applies [facility] (St [#/area] in x10E3/uL to non-numeric Dony's Blood by results) [facility], ) Microscopy high power field Neutrophils [#] 75 % Normal (applies [facility] ( St in Body fluid by to non-numeric Dony's Manual count results) [facility], ) Lymphs 17 % Normal (applies [facility] (St to non-numeric Dony's results) [facility], ) Monocytes 5 % Normal (applies [facility] (St [#/volume] in to non-numeric [facility] Cord blood results) [facility], ) Basos 0 % Normal (applies MEDGEN (St to non-numeric Dony's results) [facility], ) Eos 3 % Normal (applies MEDGEN (St to non-numeric Dony's results) [facility], ) Neutrophils 5.8 Normal (applies MEDGEN (St (Absolute) x10E3/uL to non-numeric Dony's results) [facility], ) Lymphs 1.3 Normal (applies MEDGEN (St (Absolute) x10E3/uL to non-numeric [facility]ony's results) [facility], ) Monocytes(Absolu 0.4 Normal (applies MEDGEN (St te) x10E3/uL to non-numeric [facility]ony's results) [facility], ) Eos (Absolute) 0.2 Normal (applies MEDGEN (S t x10E3/uL to non-numeric Dony's results) [facility], ) Immature 0 % Normal (applies MEDGEN (St Granulocytes to non-numeric Dony's results) [facility], ) Baso (Absolute) 0.0 Normal (applies MEDGEN ( St x10E3/uL to non-numeric [facility]ony's results) [facility], ) Immature Grans 0.0 Normal (applies MEDGEN (S t (Abs) x10E3/uL to non-numeric [facility]ony's results) [facility], ) ID Date Data Source [id number] 08/17/2018 12:00:00 AM EDT [facility] ([facility], ) Name Value Range Interpretation Code Description Data Kimberly rce(s) Supporting Document(s ) ID Date Data Source [id number] 08/17/2018 12:00:00 AM EDT [facility] ([facility] Name Value Range Interpretation Description Data Sup porting Code Source(s) Document(s ) Request Test not Normal (applies to MEDGEN (St Problem performed non-numeric [facility] . results) [facility]) ID Date Data Source [id number] 08/17/2018 12:00:00 AM EDT [facility] ([facility] Name Value Range Interpretation Description Data Sup porting Code Source(s) Document(s ) No Urine Test not Normal (applies to MEDGEN (St Received performed non-numeric [facility] . results) [facility]) ID Date Data Source [id number] 08/17/2018 12:00:00 AM EDT [facility] ([facility] Name Value Range Interpretation Code Description Data Kimberly rce(s) Supporting Document(s ) ID Date Data Source [id number] 08/17/2018 12:00:00 AM EDT [facility] ([facility] Name Value Range Interpretation Description Data Sup porting Code Source(s) Document(s ) Hemoglobin 9.0 % Above high normal MEDGEN (St A1c/Hemoglobin. [facility] total in Blood Medical, ) ID Date Data Source [id number] 06/15/2018 06:00:00 PM EST [facility] Name Value Range Interpretation Description Data Sup porting Code Source(s) Document(s ) Color of Urine YELLOW <content [facility] styleCode="Jonny Karmen d">Color, Medical Urine Center </content>YELL OW <content styleCode="Lesli lics"> (YELLOW )</content> UNK NEGATIVE <content [facility] styleCode="Jonny Karmen d">Urine Medical Bilirubin Center </content>NEGA TIVE <content styleCode="Lesli lics"> (NEGATIVE )</content> Glucose NEGATIVE <content [facility] [Mass/volume] styleCode="Jonny Karmen in Urine by d">Urine Medical Test strip Glucose Center </content>>=10 00 MG/DL<content styleCode="Lesli lics"> (NEGATIVE MG/DL)</conten t> UNK CLEAR <content [facility] styleCode="Jonny Karmen d">Urine Medical Clarity Center </content>DANIEL R <content styleCode="Lesli lics"> (CLEAR )</content> Ketones NEGATIVE <content [facility] [Mass/volume] styleCode="Jonny Karmen in Urine by d">Urine Medical Test strip Ketone Center </content>NEGA TIVE MG/DL<content styleCode="Lesli lics"> (NEGATIVE MG/DL)</conten t> Urobilinogen 0.2-1.0 <content [facility] [Units/volume] styleCode="Jonny Karmen in Urine by d">Urine Medical Test strip Urobilinogen Center </content>0.2 MG/DL<content styleCode="Lesli lics"> (0.2-1.0 MG/DL)</conten t> Hemoglobin NEGATIVE <content [facility] [Presence] in styleCode="Jonny Loves Urine by Test d">Urine Blood Medical strip </content>SMAL Center L <content styleCode="Lesli lics"> (NEGATIVE )</content> Protein NEGATIVE <content [facility] [Mass/volume] styleCode="Jonny Karmen in Urine by d">Urine Medical Test strip Protein Center </content>100 MG/DL<content styleCode="Lesli lics"> (NEGATIVE MG/DL)</conten t> pH of Urine by 4.5-8.0 <content [facility] Test strip styleCode="Jonny Karmen d">Urine pH Medical </content>6.0 Center NM<content styleCode="Lesli lics"> (4.5-8.0 NM)</content> Specific 1.015-1.02 <content [facility] gravity of 5 styleCode="Jonny Karmen Urine by Test d">Urine Medical strip Specific Center [facility] </content>1.02 5 NM<content styleCode="Lesli lics"> (1.015-1.025 NM)</content> Nitrite NEGATIVE <content [facility] [Presence] in styleCode="Jonny Karmen Urine by Test d">Urine Medical strip Nitrite Center </content>NEGA TIVE <content styleCode="Lesli lics"> (NEGATIVE )</content> UNK NEGATIVE <content [facility] styleCode="Jonny Karmen d">Urine Medical Bacteria Center </content>FEW HPF<content styleCode="Lesli lics"> (NEGATIVE HPF)</content> UNK 0-3 <content [facility] styleCode="Jonny Karmen d">Urine White Medical Blood Cell Center </content>0-3 HPF<content styleCode="Lesli lics"> (0-3 HPF)</content> Leukocyte NEGATIVE <content [facility] esterase styleCode="Jonny Loves [Presence] in d">Urine Medical Urine by Test Leukocyte Center strip </content>NEGA TIVE <content styleCode="Lesli lics"> (NEGATIVE )</content> UNK 0-3 <content [facility] styleCode="Jonny Karmen d">Urine Red Medical Blood Cell Center </content>3-5 HPF<content styleCode="Lesli lics"> (0-3 HPF)</content> UNK <content [facility] styleCode="Jonny Karmen d">Epithelial Medical Cell Center </content>10 - 20 LPF (Reference Range: not available)<br/ > ID Date Data Source HematologyRou 06/15/2018 06:00:00 PM EST [facility] Name Value Range Interpretation Description Data Sup porting Code Source(s) Document(s ) Hemoglobin 13.5-17. Below low normal <content [facility] [Mass/volume] in 5 styleCode="Bold Karmen Blood ">Hemoglobin Medical </content>11.4 Center G/DL L<content styleCode="Ital ics"> (13.5-17.5 G/DL)</content> Hematocrit 41.0-53. Below low normal <content [facility] [Volume 0 styleCode="Bold Karmen Fraction] of ">Hematocrit Medical Blood by </content>34.5 Center Automated count % L<content styleCode="Ital ics"> (41.0-53.0 %)</content> Erythrocytes 4.4-5.9 Below low normal <content [facility] [#/volume] in styleCode="Bold Karmen Blood by ">Red Blood Medical Automated count Cell Count Center </content>4.12 MCUMM L<content styleCode="Ital ics"> (4.4-5.9 MCUMM)</content > Leukocytes 4.4-11.0 <content [facility] [#/volume] in styleCode="Bold Karmen Blood by ">White Blood Medical Automated count Cell Count Center </content>6.40 KCUMM<content styleCode="Ital ics"> (4.4-11.0 KCUMM)</content > Erythrocyte mean 26.0-34. <content [facility] corpuscular 0 styleCode="Bold Karmen hemoglobin ">Mean Medical [Entitic mass] Corposcular Center by Automated Hemoglobin count </content>27.7 PG<content styleCode="Ital ics"> (26.0-34.0 PG)</content> Erythrocyte mean 80.0-100 <content [facility] corpuscular .0 styleCode="Bold Karmen volume [Entitic ">Mean Medical volume] by Corpuscular Center Automated count Volume </content>83.7 FL<content styleCode="Ital ics"> (80.0-100.0 FL)</content> Platelets 130-400 <content [facility] [#/volume] in styleCode="Bold Karmen Blood by ">Platelet Medical Automated count Count Center </content>262 KCUMM<content styleCode="Ital ics"> (130-400 KCUMM)</content > Erythrocyte 11.5-14. <content [facility] distribution 5 styleCode="Bold Karmen width [Ratio] by ">Red Cell Medical Automated count Distribution Center Width </content>12.9 %<content styleCode="Ital ics"> (11.5-14.5 %)</content> Erythrocyte mean 32.0-37. <content [facility] corpuscular 0 styleCode="Bold Karmen hemoglobin ">Mean Corpus. Medical concentration Hgb Center [Mass/volume] by Concentration Automated count (MCHC) </content>33.0 G/DL<content styleCode="Ital ics"> (32.0-37.0 G/DL)</content> UNK 0.0 <content Saint styleCode="Bold Karmen ">Nucleated Red Medical Blood Cell Center Count </content>0.00 KCUMM<content styleCode="Ital ics"> (0.0 KCUMM)</content > Platelet mean 8.0-11.0 <content [facility] volume [Entitic styleCode="Bold Karmen volume] in Blood ">Mean Platelet Medical by Automated Volume Center count </content>10.4 FL<content styleCode="Ital ics"> (8.0-11.0 FL)</content> UNK 0 <content [facility] styleCode="Bold Karmen ">Nucleated Red Medical Blood Cell Center </content>0.0 /100<content styleCode="Ital ics"> (0 /100)</content> ID Date Data Source GFR(Creatinine) 06/15/2018 06:00:00 PM [facility] Name Value Range Interpretation Code Description Data Kimberly rce(s) Supporting Document(s ) UNK > 60 <content [facility] styleCode="Bold"> Medical Cent er EGFR </content>74 GFR<content styleCode="Italic s"> (> 60 GFR)</content> ID Date Data Source [id number] 06/15/2018 06:00:00 PM [facility] Name Value Range Interpretation Description Data Sup porting Code Source(s) Document(s ) Cannabinoids <content [facility] [Presence] in styleCode="Jonny Karmen Urine by Screen d">Cannabinoid Medical method >50 ng/mL s Center </content>NEGA TIVE NG/ML (Reference Range: not available)<br/ > ID Date Data Source BMP 06/15/2018 06:00:00 PM [facility] Name Value Range Interpretation Description Data Sup porting Code Source(s) Document(s ) Sodium 137-145 <content [facility] [Moles/volume] styleCode="Jonny Karmen in Serum or d">Sodium Medical Plasma </content>139 Center MEQ/L<content styleCode="Lesli lics"> (137-145 MEQ/L)</conten t> UNK 9-20 Above high normal <content [facility] styleCode="Jonny Karmen d">BUN Medical </content>22 Center MG/DL H<content styleCode="Lesli lics"> (9-20 MG/DL)</conten t> Carbon 22-30 <content [facility] dioxide, total styleCode="Jonny Loves [Moles/volume] d">Carbon Medical in Serum or Dioxide Center Plasma </content>29 MEQ/L<content styleCode="Lesli lics"> (22-30 MEQ/L)</conten t> Potassium 3.5-5.3 <content [facility] [Moles/volume] styleCode="Jonny Karmen in Serum or d">Potassium Medical Plasma </content>4.6 Center MEQ/L<content styleCode="Lesli lics"> (3.5-5.3 MEQ/L)</conten t> Chloride 98-107 <content [facility] [Moles/volume] styleCode="Jonny Karmen in Serum or d">Chloride Medical Plasma </content>106 Center MEQ/L<content styleCode="Lesli lics"> (98-107 MEQ/L)</conten t> Creatinine 0.5-1.3 <content [facility] [Mass/volume] styleCode="Jonny Karmen in Serum or d">Creatinine Medical Plasma </content>1.1 Center MG/DL<content styleCode="Lesli lics"> (0.5-1.3 MG/DL)</conten t> UNK > 60 <content [facility] styleCode="Jonny Karmen d">EGFR Medical </content>74 Center GFR<content styleCode="Lesli lics"> (> 60 GFR)</content> Calcium 8.4-10.2 <content [facility] [Mass/volume] styleCode="Jonny Karmen in Serum or d">Calcium Medical Plasma </content>9.2 Center MG/DL<content styleCode="Lesli lics"> (8.4-10.2 MG/DL)</conten t> Glucose 74-106 Above high normal <content [facility] [Mass/volume] styleCode="Jonny Karmen in Serum or d">Glucose Medical Plasma </content>225 Center MG/DL H<content styleCode="Lesli lics"> (74-106 MG/DL)</conten t> ID Date Data Source [id number] 06/01/2018 12:00:00 AM EST [facility] ([facility], ) Name Value Range Interpretation Code Description Data Kimberly rce(s) Supporting Document(s ) ID Date Data Source [id number] 06/01/2018 12:00:00 AM EST [facility] ([facility], ) Name Value Range Interpretation Code Description Data Kimberly rce(s) Supporting Document(s ) PDF Image . Normal (applies to MEDGEN (St non-numeric results) [facility], ) ID Date Data Source [id number] 06/01/2018 12:00:00 AM EST [facility] ([facility], ) Name Value Range Interpretation Description Data Sup porting Code Source(s) Document(s ) Hemoglobin 9.1 % Above high normal MEDGEN (St A1c/Hemoglobin. [facility]ony[facility] total in Blood [facility], ) ID Date Data Source [id number] 06/01/2018 12:00:00 AM EST [facility] ([facility], ) Name Value Range Interpretation Description Data Sup porting Code Source(s) Document(s ) Glucose 229 mg/dL Above high normal MEDGEN (St [Mass/volume] Dony's in Urine [facility], ) collected for unspecified duration Urea nitrogen 19 mg/dL Normal (applies MEDGEN (St [Mass/volume] to non-numeric Dony's in Serum or results) Medical, ) Plasma Creatinine 1.04 Normal (applies MEDGEN (St [Interpretation mg/dL to non-numeric Dony's ] in Urine results) [facility], ) eGFR If 82 Normal (applies MEDGEN (St NonAfricn Am mL/min/1. to non-numeric [facility]'s 73 results) Medical, ) BUN/Creatinine 18 Normal (applies MEDGEN (S t Ratio to non-numeric [facility]ony's results) Medical, ) eGFR If Africn 94 Normal (applies MEDGEN (S t Am mL/min/1. to non-numeric [facility]'s 73 results) Medical, ) Sodium 141 Normal (applies MEDGEN (St [Moles/volume] mmol/L to non-numeric [facility]ony's in Serum or results) Medical, ) Plasma Potassium 4.6 Normal (applies MEDGEN (St [Mass/volume] mmol/L to non-numeric Dony's in Blood results) [facility], ) Carbon dioxide, 24 mmol/L Normal (applies MEDGEN ( St total to non-numeric Dony's [Moles/volume] results) [facility], ) in Serum or Plasma Chloride 104 Normal (applies MEDGEN (St [Moles/volume] mmol/L to non-numeric [facility]ony's in Serum or results) [facility], ) Plasma Calcium 9.1 mg/dL Normal (applies MEDGEN (St [Moles/volume] to non-numeric [facility]ony's in Urine results) [facility], ) collected for unspecified duration ID Date Data Source [id number] 06/01/2018 12:00:00 AM EST [facility] ([facility], ) Name Value Range Interpretation Code Description Data Kimberly rce(s) Supporting Document(s ) ID Date Data Source [id number] 06/01/2018 12:00:00 AM EST [facility] ([facility], ) Name Value Range Interpretation Code Description Data Kimberly rce(s) Supporting Document(s ) PDF Image . Normal (applies to MEDGEN (St non-numeric results) [facility] Me [facility]) ID Date Data Source [id number] 06/01/2018 12:00:00 AM EST [facility] ([facility], ) Name Value Range Interpretation Description Data Sup porting Code Source(s) Document(s ) Hemoglobin 9.1 % Above high normal MEDGEN (St A1c/Hemoglobin. Dony's total in Blood [facility], ) ID Date Data Source [id number] 06/01/2018 12:00:00 AM EST [facility] ([facility], ) Name Value Range Interpretation Description Data Sup porting Code Source(s) Document(s ) Glucose 229 mg/dL Above high normal MEDGEN (St [Mass/volume] Dony's in Urine [facility], ) collected for unspecified duration Urea nitrogen 19 mg/dL Normal (applies MEDGEN (St [Mass/volume] to non-numeric Dony's in Serum or results) [facility], ) Plasma Creatinine 1.04 Normal (applies MEDGEN (St [Interpretation mg/dL to non-numeric Dony's ] in Urine results) [facility], ) eGFR If 82 Normal (applies MEDGEN (St NonAfricn Am mL/min/1. to non-numeric Dony's 73 results) [facility], ) eGFR If Africn 94 Normal (applies MEDGEN (S t Am mL/min/1. to non-numeric [facility]'s 73 results) Medical, ) BUN/Creatinine 18 Normal (applies MEDGEN (S t Ratio to non-numeric [facility]ony's results) Medical, ) Sodium 141 Normal (applies MEDGEN (St [Moles/volume] mmol/L to non-numeric [facility]ony's in Serum or results) Medical, ) Plasma Chloride 104 Normal (applies MEDGEN (St [Moles/volume] mmol/L to non-numeric [facility]ony's in Serum or results) Medical, ) Plasma Potassium 4.6 Normal (applies MEDGEN (St [Mass/volume] mmol/L to non-numeric [facility]ony's in Blood results) [facility], ) Carbon dioxide, 24 mmol/L Normal (applies MEDGEN ( St total to non-numeric Dony's [Moles/volume] results) [facility], ) in Serum or Plasma Calcium 9.1 mg/dL Normal (applies MEDGEN (St [Moles/volume] to non-numeric Dony's in Urine results) [facility], ) collected for unspecified duration ID Date Data Source [id number] 06/01/2018 12:00:00 AM EST [facility] ([facility], ) Name Value Range Interpretation Code Description Data Kimberly rce(s) Supporting Document(s ) ID Date Data Source [id number] 06/01/2018 12:00:00 AM EST [facility] ([facility], ) Name Value Range Interpretation Code Description Data Kimberly rce(s) Supporting Document(s ) PDF Image . Normal (applies to MEDGEN (St non-numeric results) [facility] Me [facility]) ID Date Data Source [id number] 06/01/2018 12:00:00 AM EST [facility] ([facility], ) Name Value Range Interpretation Description Data Sup porting Code Source(s) Document(s ) Hemoglobin 9.1 % Above high normal MEDGEN (St A1c/Hemoglobin. [facility]ony[facility] total in Blood [facility], ) ID Date Data Source [id number] 06/01/2018 12:00:00 AM EST [facility] ([facility], ) Name Value Range Interpretation Description Data Sup porting Code Source(s) Document(s ) Glucose 229 mg/dL Above high normal MEDGEN (St [Mass/volume] Dony's in Urine [facility], ) collected for unspecified duration Urea nitrogen 19 mg/dL Normal (applies MEDGEN (St [Mass/volume] to non-numeric Dony's in Serum or results) Medical, ) Plasma Creatinine 1.04 Normal (applies MEDGEN (St [Interpretation mg/dL to non-numeric Dony's ] in Urine results) Medical, ) eGFR If 82 Normal (applies MEDGEN (St NonAfricn Am mL/min/1. to non-numeric [facility]ony's 73 results) Medical, ) eGFR If Africn 94 Normal (applies MEDGEN (S t Am mL/min/1. to non-numeric Dony's 73 results) [facility], ) BUN/Creatinine 18 Normal (applies MEDGEN (S t Ratio to non-numeric Dony's results) Medical, ) Sodium 141 Normal (applies MEDGEN (St [Moles/volume] mmol/L to non-numeric [facility]ony's in Serum or results) Medical, ) Plasma Potassium 4.6 Normal (applies MEDGEN (St [Mass/volume] mmol/L to non-numeric [facility]ony's in Blood results) [facility], ) Chloride 104 Normal (applies MEDGEN (St [Moles/volume] mmol/L to non-numeric [facility]ony's in Serum or results) [facility], ) Plasma Carbon dioxide, 24 mmol/L Normal (applies MEDGEN ( St total to non-numeric Dony's [Moles/volume] results) [facility], ) in Serum or Plasma Calcium 9.1 mg/dL Normal (applies MEDGEN (St [Moles/volume] to non-numeric Dony's in Urine results) [facility], ) collected for unspecified duration ID Date Data Source [id number] 06/01/2018 12:00:00 AM EST [facility] ([facility], ) Name Value Range Interpretation Code Description Data Kimberly rce(s) Supporting Document(s ) ID Date Data Source [id number] 06/01/2018 12:00:00 AM EST [facility] ([facility], ) Name Value Range Interpretation Code Description Data Kimberly rce(s) Supporting Document(s ) PDF Image . Normal (applies to MEDGEN (St non-numeric results) Dony's [facility]) ID Date Data Source [id number] 06/01/2018 12:00:00 AM EST [facility] ([facility], ) Name Value Range Interpretation Description Data Sup porting Code Source(s) Document(s ) Hemoglobin 9.1 % Above high normal MEDGEN (St A1c/Hemoglobin. Dony's total in Blood [facility], ) ID Date Data Source [id number] 06/01/2018 12:00:00 AM EST [facility] ([facility], ) Name Value Range Interpretation Description Data Sup porting Code Source(s) Document(s ) Glucose 229 mg/dL Above high normal [facility]GEN (St [Mass/volume] [facility]ony's in Urine [facility], ) collected for unspecified duration Urea nitrogen 19 mg/dL Normal (applies MEDGEN (St [Mass/volume] to non-numeric Dony's in Serum or results) Medical, ) Plasma Creatinine 1.04 Normal (applies MEDGEN (St [Interpretation mg/dL to non-numeric Dony's ] in Urine results) Medical, ) eGFR If 82 Normal (applies MEDGEN (St NonAfricn Am mL/min/1. to non-numeric [facility]ony's 73 results) Medical, ) eGFR If Africn 94 Normal (applies MEDGEN (S t Am mL/min/1. to non-numeric Dony's 73 results) Medical, ) Sodium 141 Normal (applies MEDGEN (St [Moles/volume] mmol/L to non-numeric [facility]ony's in Serum or results) Medical, ) Plasma BUN/Creatinine 18 Normal (applies MEDGEN (S t Ratio to non-numeric Dony's results) Medical, ) Potassium 4.6 Normal (applies MEDGEN (St [Mass/volume] mmol/L to non-numeric [facility]ony's in Blood results) Medical, ) Chloride 104 Normal (applies MEDGEN (St [Moles/volume] mmol/L to non-numeric Dony's in Serum or results) Medical, ) Plasma Carbon dioxide, 24 mmol/L Normal (applies MEDGEN ( St total to non-numeric Dony's [Moles/volume] results) Medical, ) in Serum or Plasma Calcium 9.1 mg/dL Normal (applies MEDGEN (St [Moles/volume] to non-numeric Dony's in Urine results) Medical, ) collected for unspecified duration ID Date Data Source [id number] 06/01/2018 12:00:00 AM EST [facility] ([facility], ) Name Value Range Interpretation Code Description Data Kimberly rce(s) Supporting Document(s ) ID Date Data Source [id number] 06/01/2018 12:00:00 AM EST [facility] ( [facility], ) Name Value Range Interpretation Code Description Data Kimberly rce(s) Supporting Document(s ) PDF Image . Normal (applies to MEDGEN (St non-numeric results) [facility] Me [facility]) ID Date Data Source [id number] 06/01/2018 12:00:00 AM EST [facility] ( [facility], ) Name Value Range Interpretation Description Data Sup porting Code Source(s) Document(s ) Hemoglobin 9.1 % Above high normal MEDGEN (St A1c/Hemoglobin. Dony's total in Blood [facility], ) ID Date Data Source [id number] 06/01/2018 12:00:00 AM EST [facility] ( [facility], ) Name Value Range Interpretation Description Data Sup porting Code Source(s) Document(s ) Glucose 229 mg/dL Above high normal MEDGEN (St [Mass/volume] Dony's in Urine [facility], ) collected for unspecified duration Creatinine 1.04 Normal (applies MEDGEN (St [Interpretation mg/dL to non-numeric Dony's ] in Urine results) [facility], ) Urea nitrogen 19 mg/dL Normal (applies MEDGEN (St [Mass/volume] to non-numeric Dony's in Serum or results) [facility], ) Plasma eGFR If 82 Normal (applies MEDGEN (St NonAfricn Am mL/min/1. to non-numeric Dony's 73 results) Medical, ) eGFR If Africn 94 Normal (applies MEDGEN (S t Am mL/min/1. to non-numeric Dony's 73 results) [facility], ) BUN/Creatinine 18 Normal (applies MEDGEN (S t Ratio to non-numeric [facility] results) [facility], ) Sodium 141 Normal (applies MED[facility] (St [Moles/volume] mmol/L to non-numeric [facility] in Serum or results) [facility], ) Plasma Potassium 4.6 Normal (applies [facility] (St [Mass/volume] mmol/L to non-numeric [facility] in Blood results) [facility], ) Carbon dioxide, 24 mmol/L Normal (applies [facility]GEN ( St total to non-numeric [facility]'s [Moles/volume] results) Medical, ) in Serum or Plasma Chloride 104 Normal (applies [facility] (St [Moles/volume] mmol/L to non-numeric [facility] in Serum or results) Medical, ) Plasma Calcium 9.1 mg/dL Normal (applies [facility] (St [Moles/volume] to non-numeric [facility] in Urine results) Medical, ) collected for unspecified duration ID Date Data Source [id number] 06/01/2018 12:00:00 AM EST [facility] ([facility], ) Name Value Range Interpretation Code Description Data Kimberly rce(s) Supporting Document(s ) ID Date Data Source [id number] 06/01/2018 12:00:00 AM EST [facility] ([facility], ) Name Value Range Interpretation Code Description Data Kimberly rce(s) Supporting Document(s ) PDF Image . Normal (applies to [facility] (St non-numeric results) [facility], ) ID Date Data Source [id number] 06/01/2018 12:00:00 AM EST [facility] ([facility], ) Name Value Range Interpretation Description Data Sup porting Code Source(s) Document(s ) Hemoglobin 9.1 % Above high normal [facility] (St A1c/Hemoglobin. [facility] total in Blood [facility], ) ID Date Data Source [id number] 06/01/2018 12:00:00 AM EST [facility] ([facility], ) Name Value Range Interpretation Description Data Sup porting Code Source(s) Document(s ) Glucose 229 mg/dL Above high normal [facility] (St [Mass/volume] [facility] in Urine Medical, ) collected for unspecified duration Urea nitrogen 19 mg/dL Normal (applies [facility] (St [Mass/volume] to non-numeric [facility] in Serum or results) Medical, ) Plasma Creatinine 1.04 Normal (applies [facility] (St [Interpretation mg/dL to non-numeric [facility] ] in Urine results) Medical, ) eGFR If 82 Normal (applies [facility] (St NonAfricn Am mL/min/1. to non-numeric [facility] 73 results) Medical, ) eGFR If Africn 94 Normal (applies [facility] (S t Am mL/min/1. to non-numeric [facility] 73 results) [facility], [facility]) BUN/Creatinine 18 Normal (applies [facility] (S t Ratio to non-numeric [facility] results) [facility], [facility]) Potassium 4.6 Normal (applies [facility] (St [Mass/volume] mmol/L to non-numeric [facility] in Blood results) [facility], [facility]) Sodium 141 Normal (applies [facility] (St [Moles/volume] mmol/L to non-numeric [facility] in Serum or results) [facility], [facility]) Plasma Chloride 104 Normal (applies [facility] (St [Moles/volume] mmol/L to non-numeric [facility] in Serum or results) [facility], [facility]) Plasma Carbon dioxide, 24 mmol/L Normal (applies [facility] ( St total to non-numeric [facility] [Moles/volume] results) Medical, PC) in Serum or Plasma Calcium 9.1 mg/dL Normal (applies [facility] (St [Moles/volume] to non-numeric [facility]oy[facility] in Urine results) [facility], [facility]) collected for unspecified duration ID Date Data Source [id number] 06/01/2018 12:00:00 AM EST [facility] ([facility]) Name Value Range Interpretation Description Data Sup porting Code Source(s) Document(s ) Specific gravity 1.021 Normal (applies [facility] (St of Pericardial to non-numeric [facility] fluid by results) Medical, Refractometry PC) pH of Lower 5.0 Normal (applies [facility] (St respiratory to non-numeric [facility] specimen results) [facility], [facility]) Urine-Color Yellow Normal (applies [facility] (St to non-numeric [facility] results) [facility], [facility]) Appearance of Clear Normal (applies [facility] (St Abdomen to non-numeric [facility] results) [facility], [facility]) WBC Esterase Negative Normal (applies [facility] (St to non-numeric [facility] results) [facility], [facility]) Protein Abnormal [facility] (St [Mass/volume] in (applies to [facility] Lower non-numeric Medical, respiratory results) PC) specimen Glucose Abnormal [facility] (St [Mass/volume] in (applies to [facility] Urine collected non-numeric Medical, for unspecified results) PC) duration Ketones Negative Normal (applies [facility] (St [Presence] in to non-numeric [facility] Blood by Tablet results) Medical, PC) Occult Blood Negative Normal (applies [facility] (St to non-numeric [facility] results) Medical, ) Bilirubin Negative Normal (applies [facility] (St [Presence] in to non-numeric [facility] Peritoneal fluid results) [facility], ) Urobilinogen,Nani 0.2 mg/dL Normal (applies [facility] (St i-Qn to non-numeric [facility] results) [facility], ) Microscopic See below: Normal (applies [facility] (St Examination to non-numeric [facility] results) [facility], ) Nitrite, Urine Negative Normal (applies [facility] (S t to non-numeric [facility]ony's results) [facility], ) ID Date Data Source [id number] 06/01/2018 12:00:00 AM EST [facility] ([facility], ) Name Value Range Interpretation Description Data Sup porting Code Source(s) Document(s ) Triglyceride 121 Normal (applies [facility] (St [Mass/volume] in mg/dL to non-numeric [facility] Serum or Plasma results) [facility], ) HDL Cholesterol 89 mg/dL Normal (applies [facility] ( St to non-numeric [facility] results) [facility], ) VLDL Cholesterol 24 mg/dL Normal (applies [facility] (St Vasile to non-numeric [facility] results) [facility], ) LDL Cholesterol 112 Above high normal [facility] (St Calc mg/dL Dony's [facility], ) PDF Image . Normal (applies [facility] (St to non-numeric [facility] results) [facility], ) ID Date Data Source [id number] 06/01/2018 12:00:00 AM EST [facility] ([facility], ) Name Value Range Interpretation Description Data Sup porting Code Source(s) Document(s ) Hemoglobin 9.1 % Above high normal [facility] (St A1c/Hemoglobin. [facility] total in Blood [facility], ) ID Date Data Source [id number] 06/01/2018 12:00:00 AM EST [facility] ([facility], ) Name Value Range Interpretation Description Data Sup porting Code Source(s) Document(s ) Glucose 229 mg/dL Above high normal [facility] (St [Mass/volume] [facility]ony[facility] in Urine [facility], ) collected for unspecified duration Urea nitrogen 19 mg/dL Normal (applies [facility] (St [Mass/volume] to non-numeric [facility] in Serum or results) [facility], ) Plasma Creatinine 1.04 Normal (applies [facility] (St [Interpretation mg/dL to non-numeric [facility] ] in Urine results) Medical, ) eGFR If 82 Normal (applies [facility] (St NonAfricn Am mL/min/1. to non-numeric [facility] 73 results) Medical, ) eGFR If Africn 94 Normal (applies [facility] (S t Am mL/min/1. to non-numeric [facility] 73 results) Medical, ) BUN/Creatinine 18 Normal (applies [facility] (S t Ratio to non-numeric [facility] results) Medical, ) Sodium 141 Normal (applies [facility] (St [Moles/volume] mmol/L to non-numeric [facility] in Serum or results) Medical, ) Plasma Potassium 4.6 Normal (applies [facility] (St [Mass/volume] mmol/L to non-numeric [facility] in Blood results) Medical, ) Chloride 104 Normal (applies [facility] (St [Moles/volume] mmol/L to non-numeric [facility] in Serum or results) Medical, ) Plasma Carbon dioxide, 24 mmol/L Normal (applies [facility] ( St total to non-numeric [facility] [Moles/volume] results) Medical, ) in Serum or Plasma Calcium 9.1 mg/dL Normal (applies [facility] (St [Moles/volume] to non-numeric [facility] in Urine results) Medical, ) collected for unspecified duration ID Date Data Source [id number] 06/01/2018 12:00:00 AM EST [facility] (St [employer], ) Name Value Range Interpretation Code Description Data [facility] rce(s) Supporting Document(s ) ID Date Data Source [id number] 06/01/2018 12:00:00 AM EST [facility] ([facility], ) Name Value Range Interpretation Code Description Data Supporting Source(s) Document(s ) Albumin, 2994.7 Normal (applies to [facility] (St Urine ug/mL non-numeric [facility] results) Medical, ) Alb/Creat 2053 mg/g Above high normal [facility] (St Ratio creat Dony's [facility], ) PDF Image . Normal (applies to [facility] (St non-numeric [facility] results) Medical, ) ID Date Data Source [id number] 06/01/2018 12:00:00 AM EST [facility] ([facility], ) Name Value Range Interpretation Description Data Sup porting Code Source(s) Document(s ) Hemoglobin 9.1 % Above high normal [facility] (St A1c/Hemoglobin. [facility] total in Blood [facility], ) ID Date Data Source [id number] 06/01/2018 12:00:00 AM EST [facility] ([facility], ) Name Value Range Interpretation Description Data Sup porting Code Source(s) Document(s ) Glucose 229 mg/dL Above high normal [facility] (St [Mass/volume] [facility] in Urine Medical, ) collected for unspecified duration Urea nitrogen 19 mg/dL Normal (applies [facility] (St [Mass/volume] to non-numeric [facility] in Serum or results) Medical, ) Plasma Creatinine 1.04 Normal (applies [facility] (St [Interpretation mg/dL to non-numeric [facility]ony's ] in Urine results) Medical, ) eGFR If 82 Normal (applies [facility] (St NonAfricn Am mL/min/1. to non-numeric [facility] 73 results) Medical, ) BUN/Creatinine 18 Normal (applies [facility] (S t Ratio to non-numeric [facility] results) Medical, ) eGFR If Africn 94 Normal (applies [facility] (S t Am mL/min/1. to non-numeric [facility] 73 results) Medical, ) Sodium 141 Normal (applies [facility] (St [Moles/volume] mmol/L to non-numeric [facility] in Serum or results) Medical, ) Plasma Potassium 4.6 Normal (applies [facility] (St [Mass/volume] mmol/L to non-numeric [facility] in Blood results) Medical, ) Carbon dioxide, 24 mmol/L Normal (applies [facility] ( St total to non-numeric [facility] [Moles/volume] results) Medical, ) in Serum or Plasma Chloride 104 Normal (applies [facility] (St [Moles/volume] mmol/L to non-numeric [facility] in Serum or results) Medical, ) Plasma Calcium 9.1 mg/dL Normal (applies [facility] (St [Moles/volume] to non-numeric [facility] in Urine results) Medical, ) collected for unspecified duration ID Date Data Source [id number] 06/01/2018 12:00:00 AM EST [facility] ([facility], ) Name Value Range Interpretation Code Description Data Kimberly rce(s) Supporting Document(s ) ID Date Data Source [id number] 06/01/2018 12:00:00 AM EST [facility] ([facility], ) Name Value Range Interpretation Code Description Data Kimberly rce(s) Supporting Document(s ) PDF Image . Normal (applies to [facility] (St non-numeric results) Dony's [facility]) ID Date Data Source [id number] 06/01/2018 12:00:00 AM EST [facility] ([facility], ) Name Value Range Interpretation Description Data Sup porting Code Source(s) Document(s ) Glucose 229 mg/dL Above high normal [facility] (St [Mass/volume] [facility] in Urine Medical, ) collected for unspecified duration Urea nitrogen 19 mg/dL Normal (applies [facility] (St [Mass/volume] to non-numeric [facility] in Serum or results) Medical, ) Plasma Creatinine 1.04 Normal (applies [facility] (St [Interpretation mg/dL to non-numeric [facility]ony's ] in Urine results) Medical, ) eGFR If Africn 94 Normal (applies [facility] (S t Am mL/min/1. to non-numeric [facility] 73 results) Medical, ) eGFR If 82 Normal (applies [facility] (St NonAfricn Am mL/min/1. to non-numeric [facility] 73 results) Medical, ) BUN/Creatinine 18 Normal (applies [facility] (S t Ratio to non-numeric [facility] results) Medical, ) Sodium 141 Normal (applies [facility] (St [Moles/volume] mmol/L to non-numeric [facility] in Serum or results) Medical, ) Plasma Potassium 4.6 Normal (applies [facility] (St [Mass/volume] mmol/L to non-numeric [facility] in Blood results) Medical, ) Carbon dioxide, 24 mmol/L Normal (applies [facility] ( St total to non-numeric [facility] [Moles/volume] results) Medical, ) in Serum or Plasma Chloride 104 Normal (applies [facility] (St [Moles/volume] mmol/L to non-numeric [facility] in Serum or results) Medical, ) Plasma Calcium 9.1 mg/dL Normal (applies [facility] (St [Moles/volume] to non-numeric [facility] in Urine results) [facility], ) collected for unspecified duration ID Date Data Source [id number] 06/01/2018 12:00:00 AM EST [facility] ([facility], ) Name Value Range Interpretation Code Description Data Kimberly rce(s) Supporting Document(s ) ID Date Data Source [id number] 06/01/2018 12:00:00 AM EST [facility] ([facility], ) Name Value Range Interpretation Code Description Data Kimberly rce(s) Supporting Document(s ) PDF Image . Normal (applies to [facility] (St non-numeric results) [facility], ) ID Date Data Source [id number] 06/01/2018 12:00:00 AM EST [facility] ([facility], ) Name Value Range Interpretation Description Data Sup porting Code Source(s) Document(s ) Hemoglobin 9.1 % Above high normal [facility] (St A1c/Hemoglobin. [facility] total in Blood [facility], ) ID Date Data Source [id number] 06/01/2018 12:00:00 AM EST [facility] ([facility], ) Name Value Range Interpretation Description Data Sup porting Code Source(s) Document(s ) Glucose 229 mg/dL Above high normal [facility] (St [Mass/volume] [facility]ony[facility] in Urine [facility], ) collected for unspecified duration Urea nitrogen 19 mg/dL Normal (applies [facility] (St [Mass/volume] to non-numeric [facility] in Serum or results) Medical, ) Plasma Creatinine 1.04 Normal (applies [facility] (St [Interpretation mg/dL to non-numeric Dony's ] in Urine results) [facility], ) eGFR If 82 Normal (applies [facility] (St NonAfricn Am mL/min/1. to non-numeric [facility] 73 results) Medical, ) eGFR If Africn 94 Normal (applies [facility]GEN (S t Am mL/min/1. to non-numeric [facility] 73 results) [facility], ) BUN/Creatinine 18 Normal (applies [facility] (S t Ratio to non-numeric [facility]ony's results) [facility], ) Sodium 141 Normal (applies [facility] (St [Moles/volume] mmol/L to non-numeric [facility] in Serum or results) [facility], ) Plasma Potassium 4.6 Normal (applies [facility] (St [Mass/volume] mmol/L to non-numeric [facility] in Blood results) Medical, ) Chloride 104 Normal (applies [facility] (St [Moles/volume] mmol/L to non-numeric [facility] in Serum or results) Medical, ) Plasma Carbon dioxide, 24 mmol/L Normal (applies [facility] ( St total to non-numeric [facility] [Moles/volume] results) Medical, ) in Serum or Plasma Calcium 9.1 mg/dL Normal (applies [facility] (St [Moles/volume] to non-numeric [facility] in Urine results) Medical, ) collected for unspecified duration ID Date Data Source [id number] 06/01/2018 12:00:00 AM EST [facility] ([facility], ) Name Value Range Interpretation Code Description Data Kimberly rce(s) Supporting Document(s ) ID Date Data Source [id number] 06/01/2018 12:00:00 AM EST [facility] ([facility], ) Name Value Range Interpretation Code Description Data Kimberly rce(s) Supporting Document(s ) PDF Image . Normal (applies to MED[facility] (St non-numeric results) [facility] Me [facility]) ID Date Data Source [id number] 06/01/2018 12:00:00 AM EST [facility] ([facility], ) Name Value Range Interpretation Description Data Sup porting Code Source(s) Document(s ) Hemoglobin 9.1 % Above high normal [facility] (St A1c/Hemoglobin. [facility] total in Blood [facility], ) ID Date Data Source [id number] 06/01/2018 12:00:00 AM EST [facility] ([facility], ) Name Value Range Interpretation Description Data Sup porting Code Source(s) Document(s ) Glucose 229 mg/dL Above high normal [facility] (St [Mass/volume] [facility]ony[facility] in Urine [facility], ) collected for unspecified duration Urea nitrogen 19 mg/dL Normal (applies [facility] (St [Mass/volume] to non-numeric [facility] in Serum or results) Medical, ) Plasma Creatinine 1.04 Normal (applies [facility] (St [Interpretation mg/dL to non-numeric Dony's ] in Urine results) [facility], ) eGFR If 82 Normal (applies [facility] (St NonAfricn Am mL/min/1. to non-numeric [facility] 73 results) Medical, ) BUN/Creatinine 18 Normal (applies [facility] (S t Ratio to non-numeric [facility] results) Medical, ) eGFR If Africn 94 Normal (applies [facility] (S t Am mL/min/1. to non-numeric [facility] 73 results) Medical, ) Sodium 141 Normal (applies [facility] (St [Moles/volume] mmol/L to non-numeric [facility] in Serum or results) Medical, ) Plasma Potassium 4.6 Normal (applies [facility] (St [Mass/volume] mmol/L to non-numeric [facility] in Blood results) Medical, ) Chloride 104 Normal (applies [facility] (St [Moles/volume] mmol/L to non-numeric [facility] in Serum or results) Medical, ) Plasma Carbon dioxide, 24 mmol/L Normal (applies [facility] ( St total to non-numeric [facility]ony's [Moles/volume] results) Medical, ) in Serum or Plasma Calcium 9.1 mg/dL Normal (applies [facility] (St [Moles/volume] to non-numeric [facility] in Urine results) Medical, ) collected for unspecified duration ID Date Data Source [id number] 06/01/2018 12:00:00 AM EST [facility] ([facility] Name Value Range Interpretation Code Description Data Kimberly rce(s) Supporting Document(s ) ID Date Data Source [id number] 06/01/2018 12:00:00 AM EST [facility] ([facility]) Name Value Range Interpretation Code Description Data Kimberly rce(s) Supporting Document(s ) PDF Image . Normal (applies to [facility] (St non-numeric results) [facility] Me dical, ) ID Date Data Source [id number] 06/01/2018 12:00:00 AM EST [facility] ([facility]) Name Value Range Interpretation Description Data Sup porting Code Source(s) Document(s ) Hemoglobin 9.1 % Above high normal [facility] (St A1c/Hemoglobin. [facility] total in Blood Medical, ) ID Date Data Source [id number] 06/01/2018 12:00:00 AM EST [facility] ([facility]) Name Value Range Interpretation Description Data Sup porting Code Source(s) Document(s ) Glucose 229 mg/dL Above high normal [facility] (St [Mass/volume] [facility]ony[facility] in Urine [facility], ) collected for unspecified duration Urea nitrogen 19 mg/dL Normal (applies [facility] (St [Mass/volume] to non-numeric [facility] in Serum or results) Medical, ) Plasma Creatinine 1.04 Normal (applies [facility] (St [Interpretation mg/dL to non-numeric Dony's ] in Urine results) [facility], ) eGFR If 82 Normal (applies [facility] (St NonAfricn Am mL/min/1. to non-numeric [facility] 73 results) Medical, ) eGFR If Africn 94 Normal (applies [facility] (S t Am mL/min/1. to non-numeric [facility]ony[facility] 73 results) [facility], ) BUN/Creatinine 18 Normal (applies [facility]GEN (S t Ratio to non-numeric [facility]ony's results) [facility], ) Potassium 4.6 Normal (applies [facility] (St [Mass/volume] mmol/L to non-numeric [facility]ony[facility] in Blood results) [facility], ) Sodium 141 Normal (applies [facility] (St [Moles/volume] mmol/L to non-numeric [facility]ony[facility] in Serum or results) [facility], ) Plasma Chloride 104 Normal (applies [facility] (St [Moles/volume] mmol/L to non-numeric [facility] in Serum or results) [facility], ) Plasma Calcium 9.1 mg/dL Normal (applies [facility] (St [Moles/volume] to non-numeric [facility] in Urine results) [facility], ) collected for unspecified duration Carbon dioxide, 24 mmol/L Normal (applies [facility] ( St total to non-numeric [facility]ony's [Moles/volume] results) [facility], ) in Serum or Plasma ID Date Data Source [id number] 06/01/2018 12:00:00 AM EST [facility] ([facility], ) Name Value Range Interpretation Code Description Data Kimberly rce(s) Supporting Document(s ) ID Date Data Source [id number] 06/01/2018 12:00:00 AM EST [facility] ([facility], ) Name Value Range Interpretation Description Data Sup porting Code Source(s) Document(s ) PDF Image . Normal (applies to [facility] (St non-numeric [facility] results) [facility], PC) PDF Image . Normal (applies to [facility] (St non-numeric [facility] results) [facility], PC) PDF . Normal (applies to [facility] (St non-numeric [facility]'s results) Medical, PC) PDF Image . Normal (applies to [facility] (St non-numeric [facility] results) [facility], PC) PDF Not applicable Normal (applies to [facility] (St non-numeric [facility] results) Medical, PC) PDF Image . Normal (applies to [facility] (St non-numeric [facility] results) Medical, PC) PDF Image . Normal (applies to [facility] (St non-numeric [facility] results) Medical, PC) PDF Image . Normal (applies to [facility] (St non-numeric [facility]ony's results) Medical, PC) PDF Image . Normal (applies to [facility] (St non-numeric [facility]'s results) [facility], PC) PDF Image . Normal (applies to [facility] (St non-numeric [facility] results) Medical, PC) PDF Image . Normal (applies to [facility] (St non-numeric [facility] results) [facility], [facility]) ID Date Data Source [id number] 06/01/2018 12:00:00 AM EST [facility] ([facility]) Name Value Range Interpretation Description Data Sup porting Code Source(s) Document(s ) Hemoglobin 9.1 % Above high normal [facility] (St A1c/Hemoglobin [facility]ony[facility] .total in Medical, PC) Blood Hemoglobin 11.6 % Above high normal [facility] (St A1c/Hemoglobin [facility]ony's .total in Medical, PC) Blood Hemoglobin 9.0 % Above high normal [facility] (St A1c/Hemoglobin [facility]ony[facility] .total in Medical, PC) Blood Hemoglobin 7.0 % Above high normal [facility] (St A1c/Hemoglobin [facility]ony's .total in Medical, PC) Blood Hemoglobin 9.4 % Above high normal [facility] (St A1c/Hemoglobin [facility]ony[facility] .total in Medical, PC) Blood Hemoglobin 8.5 % Above high normal [facility] (St A1c/Hemoglobin [facility]ony[facility] .total in Medical, PC) Blood Hemoglobin 8.3 % Above high normal [facility] (St A1c/Hemoglobin [facility]ony[facility] .total in Medical, PC) Blood ID Date Data Source [id number] 06/01/2018 12:00:00 AM EST [facility] ([facility] Name Value Range Interpretation Description Data Sup porting Code Source(s) Document(s ) Glucose 229 mg/dL Above high normal [facility] (St [Mass/volume] [facility]ony[facility] in Urine Medical, ) collected for unspecified duration Urea nitrogen 19 mg/dL Normal (applies [facility] (St [Mass/volume] to non-numeric [facility] in Serum or results) Medical, ) Plasma eGFR If 82 Normal (applies MEDGEN (St NonAfricn Am mL/min/1. to non-numeric [facility] 73 results) Medical, ) Creatinine 1.04 Normal (applies [facility] (St [Interpretation mg/dL to non-numeric Dony's ] in Urine results) Medical, ) BUN/Creatinine 18 Normal (applies [facility] (S t Ratio to non-numeric [facility] results) Medical, ) eGFR If Africn 94 Normal (applies [facility]GEN (S t Am mL/min/1. to non-numeric [facility]ony[facility] 73 results) Medical, ) Sodium 141 Normal (applies [facility] (St [Moles/volume] mmol/L to non-numeric [facility]ony[facility] in Serum or results) Medical, ) Plasma Potassium 4.6 Normal (applies [facility] (St [Mass/volume] mmol/L to non-numeric D[facility] in Blood results) Medical, ) Chloride 104 Normal (applies [facility] (St [Moles/volume] mmol/L to non-numeric [facility] in Serum or results) Medical, ) Plasma Carbon dioxide, 24 mmol/L Normal (applies [facility] ( St total to non-numeric [facility] [Moles/volume] results) Medical, ) in Serum or Plasma Calcium 9.1 mg/dL Normal (applies [facility] (St [Moles/volume] to non-numeric [facility] in Urine results) Medical, ) collected for unspecified duration Glucose 216 mg/dL Above high normal [facility] (St [Mass/volume] [facility] in Urine Medical, ) collected for unspecified duration Creatinine 2.10 Above high normal [facility] (St [Interpretation mg/dL Dony[facility] ] in Urine [facility], ) Urea nitrogen 29 mg/dL Above high normal [facility] ( St [Mass/volume] [facility] in Serum or Medical, ) Plasma eGFR If Africn 40 Below low normal [facility] ( St Am mL/min/1. [facility] 73 Medical, ) eGFR If 35 Below low normal [facility] (St NonAfricn Am mL/min/1. [facility] 73 [facility], ) BUN/Creatinine 14 Normal (applies [facility] (S t Ratio to non-numeric D[facility]'s results) [facility], ) Sodium 144 Normal (applies [facility] (St [Moles/volume] mmol/L to non-numeric [facility] in Serum or results) Medical, ) Plasma Potassium 3.9 Normal (applies [facility] (St [Mass/volume] mmol/L to non-numeric [facility] in Blood results) Medical, ) Chloride 109 Above high normal [facility] (St [Moles/volume] mmol/L [facility] in Serum or [facility], ) Plasma Carbon dioxide, 23 mmol/L Normal (applies [facility] ( St total to non-numeric [facility] [Moles/volume] results) [facility], ) in Serum or Plasma Calcium 8.7 mg/dL Normal (applies [facility] (St [Moles/volume] to non-numeric [facility] in Urine results) [facility], ) collected for unspecified duration Glucose 129 mg/dL Above high normal [facility] (St [Mass/volume] [facility] in Urine [facility], ) collected for unspecified duration Urea nitrogen 39 mg/dL Above high normal [facility] ( St [Mass/volume] [facility] in Serum or [facility], ) Plasma Creatinine 2.54 Above high normal [facility] (St [Interpretation mg/dL Dony's ] in Urine [facility], ) eGFR If 28 Below low normal [facility] (St NonAfricn Am mL/min/1. Dony's 73 [facility], ) eGFR If Africn 32 Below low normal [facility] ( St Am mL/min/1. [facility]ony[facility] 73 [facility], ) Sodium 145 Above high normal [facility] (St [Moles/volume] mmol/L [facility] in Serum or [facility], ) Plasma BUN/Creatinine 15 Normal (applies [facility] (S t Ratio to non-numeric Dony's results) [facility], ) Potassium 4.1 Normal (applies [facility] (St [Mass/volume] mmol/L to non-numeric [facility] in Blood results) [facility], ) Chloride 111 Above high normal [facility] (St [Moles/volume] mmol/L [facility] in Serum or [facility], ) Plasma Carbon dioxide, 20 mmol/L Normal (applies [facility] ( St total to non-numeric [facility] [Moles/volume] results) [facility], ) in Serum or Plasma Calcium 8.2 mg/dL Below low normal [facility] (St [Moles/volume] [facility] in Urine [facility], ) collected for unspecified duration Glucose 321 mg/dL Above high normal [facility] (St [Mass/volume] [facility] in Urine [facility], ) collected for unspecified duration Urea nitrogen 25 mg/dL Above high normal [facility] ( St [Mass/volume] [facility] in Serum or [facility], ) Plasma Creatinine 0.99 Normal (applies [facility] (St [Interpretation mg/dL to non-numeric [facility]ony's ] in Urine results) [facility], ) eGFR If 87 Normal (applies [facility] (St NonAfricn Am mL/min/1. to non-numeric [facility]ony[facility] 73 results) [facility], ) eGFR If Africn 101 Normal (applies [facility] (S t Am mL/min/1. to non-numeric [facility] 73 results) [facility], ) BUN/Creatinine 25 Above high normal [facility] (St Ratio Dony's [facility], ) Sodium 138 Normal (applies [facility] (St [Moles/volume] mmol/L to non-numeric [facility] in Serum or results) Medical, ) Plasma Chloride 103 Normal (applies [facility] (St [Moles/volume] mmol/L to non-numeric [facility] in Serum or results) [facility], ) Plasma Potassium 5.6 Above high normal [facility] (St [Mass/volume] mmol/L [facility] in Blood [facility], ) Carbon dioxide, 21 mmol/L Normal (applies [facility] ( St total to non-numeric [facility] [Moles/volume] results) [facility], ) in Serum or Plasma Calcium 9.8 mg/dL Normal (applies [facility] (St [Moles/volume] to non-numeric [facility] in Urine results) [facility], ) collected for unspecified duration Urea nitrogen 41 mg/dL Above high normal [facility] ( St [Mass/volume] [facility] in Serum or [facility], ) Plasma Glucose 154 mg/dL Above high normal [facility] (St [Mass/volume] [facility] in Urine [facility], ) collected for unspecified duration eGFR If 39 Below low normal [facility] (St NonAfricn Am mL/min/1. 73 [facility], ) Creatinine 1.94 Above high normal [facility] (St [Interpretation mg/dL Dony's ] in Urine [facility], ) eGFR If Africn 45 Below low normal [facility] ( St Am mL/min/1. 73 [facility], ) BUN/Creatinine 21 Above high normal [facility] (St Ratio Dony's [facility], ) Potassium 5.5 Above high normal [facility] (St [Mass/volume] mmol/L [facility]ony[facility] in Blood [facility], ) Sodium 141 Normal (applies [facility] (St [Moles/volume] mmol/L to non-numeric [facility] in Serum or results) [facility]) Plasma Chloride 105 Normal (applies [facility] (St [Moles/volume] mmol/L to non-numeric [facility] in Serum or results) [facility]) Plasma Calcium 9.3 mg/dL Normal (applies [facility] (St [Moles/volume] to non-numeric [facility] in Urine results) [facility], ) collected for unspecified duration Carbon dioxide, 21 mmol/L Normal (applies [facility] ( St total to non-numeric [facility] [Moles/volume] results) [facility]) in Serum or Plasma Urea nitrogen 33 mg/dL Above high normal [facility] ( St [Mass/volume] [facility] in Serum or [facility], ) Plasma Glucose 88 mg/dL Normal (applies [facility] (St [Mass/volume] to non-numeric [facility] in Urine results) [facility], ) collected for unspecified duration eGFR If 55 Below low normal [facility] (St NonAfricn Am mL/min/. 73 [facility], ) Creatinine 1.45 Above high normal [facility] (St [Interpretation mg/dL Dony's ] in Urine [facility], ) eGFR If Africn 63 Normal (applies [facility] (S t Am mL/min/1. to non-numeric Donys 73 results) [facility]) BUN/Creatinine 23 Above high normal [facility] (St Ratio Dony's [facility], ) Potassium 5.4 Above high normal [facility] (St [Mass/volume] mmol/L [facility]ony[facility] in Blood [facility], ) Sodium 143 Normal (applies [facility] (St [Moles/volume] mmol/L to non-numeric [facility] in Serum or results) [facility], ) Plasma Chloride 106 Normal (applies [facility] (St [Moles/volume] mmol/L to non-numeric [facility] in Serum or results) Medical, ) Plasma Carbon dioxide, 20 mmol/L Normal (applies [facility] ( St total to non-numeric [facility] [Moles/volume] results) Medical, ) in Serum or Plasma Glucose 238 mg/dL Above high normal [facility] (St [Mass/volume] [facility] in Urine [facility], ) collected for unspecified duration Calcium 9.4 mg/dL Normal (applies [facility] (St [Moles/volume] to non-numeric [facility] in Urine results) Medical, ) collected for unspecified duration Urea nitrogen 21 mg/dL Normal (applies [facility] (St [Mass/volume] to non-numeric [facility] in Serum or results) [facility], ) Plasma Creatinine 1.13 Normal (applies [facility] (St [Interpretation mg/dL to non-numeric Dony's ] in Urine results) Medical, ) eGFR If 74 Normal (applies [facility] (St NonAfricn Am mL/min/1. to non-numeric [facility] 73 results) Medical, ) eGFR If Africn 85 Normal (applies [facility] (S t Am mL/min/1. to non-numeric [facility]ony[facility] 73 results) Medical, ) BUN/Creatinine 19 Normal (applies [facility] (S t Ratio to non-numeric Dony's results) [facility], ) Potassium 4.5 Normal (applies [facility] (St [Mass/volume] mmol/L to non-numeric [facility] in Blood results) Medical, ) Sodium 140 Normal (applies [facility] (St [Moles/volume] mmol/L to non-numeric [facility] in Serum or results) Medical, ) Plasma Chloride 103 Normal (applies [facility] (St [Moles/volume] mmol/L to non-numeric [facility] in Serum or results) Medical, ) Plasma Carbon dioxide, 19 mmol/L Below low normal [facility] (St total [facility]ony's [Moles/volume] Medical, ) in Serum or Plasma Glucose 320 mg/dL Above high normal [facility] (St [Mass/volume] [facility] in Urine [facility], ) collected for unspecified duration Calcium 9.8 mg/dL Normal (applies [facility] (St [Moles/volume] to non-numeric [facility] in Urine results) Medical, ) collected for unspecified duration Creatinine 1.40 Above high normal [facility] (St [Interpretation mg/dL Dony's ] in Urine Medical, ) Urea nitrogen 28 mg/dL Above high normal [facility] ( St [Mass/volume] [facility] in Serum or Medical, ) Plasma eGFR If Africn 65 Normal (applies [facility] (S t Am mL/min/1. to non-numeric Dony's 73 results) Medical, ) eGFR If 57 Below low normal [facility] (St NonAfricn Am mL/min/1. [facility] 73 Medical, ) Sodium 141 Normal (applies [facility] (St [Moles/volume] mmol/L to non-numeric [facility] in Serum or results) Medical, ) Plasma BUN/Creatinine 20 Normal (applies [facility] (S t Ratio to non-numeric Dony's results) [facility], ) Potassium 4.3 Normal (applies [facility] (St [Mass/volume] mmol/L to non-numeric [facility] in Blood results) Medical, ) Chloride 103 Normal (applies [facility] (St [Moles/volume] mmol/L to non-numeric [facility] in Serum or results) Medical, ) Plasma Carbon dioxide, 22 mmol/L Normal (applies [facility] ( St total to non-numeric Dony's [Moles/volume] results) [facility], ) in Serum or Plasma Calcium 8.9 mg/dL Normal (applies [facility] (St [Moles/volume] to non-numeric Dony[facility] in Urine results) [facility], ) collected for unspecified duration ID Date Data Source [id number] 06/01/2018 12:00:00 AM EST [facility] ([facility], ) Name Value Range Interpretation Code Description Data Kimberly rce(s) Supporting Document(s ) ID Date Data Source [id number] 06/01/2018 12:00:00 AM EST [facility] ([facility], ) Name Value Range Interpretation Code Description Data Kimberly rce(s) Supporting Document(s ) PDF Image . Normal (applies to [facility] (St non-numeric results) [facility] Me [facility]) ID Date Data Source [id number] 06/01/2018 12:00:00 AM EST [facility] ([facility], ) Name Value Range Interpretation Description Data Sup porting Code Source(s) Document(s ) Hemoglobin 9.1 % Above high normal [facility] (St A1c/Hemoglobin. Dony[facility] total in Blood Medical, ) ID Date Data Source [id number] 06/01/2018 12:00:00 AM EST [facility] ([facility], ) Name Value Range Interpretation Description Data Sup porting Code Source(s) Document(s ) Glucose 229 mg/dL Above high normal [facility] (St [Mass/volume] [facility] in Urine Medical, ) collected for unspecified duration Urea nitrogen 19 mg/dL Normal (applies [facility] (St [Mass/volume] to non-numeric [facility] in Serum or results) Medical, ) Plasma Creatinine 1.04 Normal (applies [facility] (St [Interpretation mg/dL to non-numeric Dony's ] in Urine results) Medical, ) eGFR If 82 Normal (applies [facility] (St NonAfricn Am mL/min/1. to non-numeric Dony[facility] 73 results) Medical, ) eGFR If Africn 94 Normal (applies [facility] (S t Am mL/min/1. to non-numeric [facility] 73 results) Medical, ) Sodium 141 Normal (applies [facility] (St [Moles/volume] mmol/L to non-numeric [facility] in Serum or results) Medical, ) Plasma BUN/Creatinine 18 Normal (applies [facility] (S t Ratio to non-numeric Dony's results) Medical, ) Potassium 4.6 Normal (applies [facility] (St [Mass/volume] mmol/L to non-numeric Dony[facility] in Blood results) Medical, ) Chloride 104 Normal (applies [facility] (St [Moles/volume] mmol/L to non-numeric [facility] in Serum or results) Medical, ) Plasma Carbon dioxide, 24 mmol/L Normal (applies [facility] ( St total to non-numeric [facility] [Moles/volume] results) Medical, ) in Serum or Plasma Calcium 9.1 mg/dL Normal (applies [facility] (St [Moles/volume] to non-numeric [facility] in Urine results) Medical, ) collected for unspecified duration ID Date Data Source [id number] 06/01/2018 12:00:00 AM EST [facility] ([facility], ) Name Value Range Interpretation Code Description Data Kimberly rce(s) Supporting Document(s ) ID Date Data Source [id number] 06/01/2018 12:00:00 AM EST [facility] ([facility], ) Name Value Range Interpretation Code Description Data Kimberly rce(s) Supporting Document(s ) PDF Image . Normal (applies to [facility] (St non-numeric results) [facility] Me [facility], ) ID Date Data Source [id number] 06/01/2018 12:00:00 AM EST [facility] ([facility], ) Name Value Range Interpretation Description Data Sup porting Code Source(s) Document(s ) Hemoglobin 9.1 % Above high normal [facility] (St A1c/Hemoglobin. Dony[facility] total in Blood [facility], ) ID Date Data Source [id number] 06/01/2018 12:00:00 AM EST [facility] ([facility], ) Name Value Range Interpretation Description Data Sup porting Code Source(s) Document(s ) Glucose 229 mg/dL Above high normal [facility] (St [Mass/volume] [facility]ony[facility] in Urine [facility], ) collected for unspecified duration Urea nitrogen 19 mg/dL Normal (applies [facility] (St [Mass/volume] to non-numeric [facility] in Serum or results) [facility], ) Plasma Creatinine 1.04 Normal (applies [facility] (St [Interpretation mg/dL to non-numeric Dony's ] in Urine results) [facility], ) eGFR If 82 Normal (applies [facility] (St NonAfricn Am mL/min/1. to non-numeric Dony's 73 results) Medical, ) eGFR If Africn 94 Normal (applies [facility] (S t Am mL/min/1. to non-numeric Dony's 73 results) [facility], ) BUN/Creatinine 18 Normal (applies [facility] (S t Ratio to non-numeric Dony's results) [facility], ) Sodium 141 Normal (applies [facility] (St [Moles/volume] mmol/L to non-numeric Dony[facility] in Serum or results) [facility], ) Plasma Potassium 4.6 Normal (applies [facility] (St [Mass/volume] mmol/L to non-numeric Dony[facility] in Blood results) [facility], ) Carbon dioxide, 24 mmol/L Normal (applies [facility] ( St total to non-numeric Dony's [Moles/volume] results) [facility], ) in Serum or Plasma Chloride 104 Normal (applies [facility] (St [Moles/volume] mmol/L to non-numeric [facility] in Serum or results) Medical, ) Plasma Calcium 9.1 mg/dL Normal (applies [facility] (St [Moles/volume] to non-numeric [facility] in Urine results) Medical, ) collected for unspecified duration ID Date Data Source [id number] 02/02/2018 12:00:00 AM EDT [facility] ([facility] Name Value Range Interpretation Code Description Data Kimberly rce(s) Supporting Document(s ) ID Date Data Source [id number] 02/02/2018 12:00:00 AM EDT [facility] ([facility] Name Value Range Interpretation Description Data Sup porting Code Source(s) Document(s ) Hemoglobin 8.3 % Above high normal [facility] (St A1c/Hemoglobin. Dony[facility] total in Blood Medical, ) ID Date Data Source [id number] 02/02/2018 12:00:00 AM EDT [facility] ([facility] Name Value Range Interpretation Code Description Data Kimberly rce(s) Supporting Document(s ) PDF Image . Normal (applies to [facility] (St non-numeric results) [facility]) ID Date Data Source [id number] 02/02/2018 12:00:00 AM EDT [facility] ([facility] Name Value Range Interpretation Code Description Data Kimberly rce(s) Supporting Document(s ) ID Date Data Source [id number] 02/02/2018 12:00:00 AM EDT [facility] ([facility] Name Value Range Interpretation Description Data Sup porting Code Source(s) Document(s ) Hemoglobin 8.3 % Above high normal [facility] (St A1c/Hemoglobin. [facility]ony[facility] total in Blood Medical, ) ID Date Data Source [id number] 02/02/2018 12:00:00 AM EDT [facility] ([facility] Name Value Range Interpretation Code Description Data Kimberly rce(s) Supporting Document(s ) PDF Image . Normal (applies to [facility] (St non-numeric results) [facility]) ID Date Data Source [id number] 02/02/2018 12:00:00 AM EDT [facility] ([facility] Name Value Range Interpretation Code Description Data Kimberly rce(s) Supporting Document(s ) ID Date Data Source [id number] 02/02/2018 12:00:00 AM EDT [facility] ([facility] Name Value Range Interpretation Description Data Sup porting Code Source(s) Document(s ) Hemoglobin 8.3 % Above high normal [facility] (St A1c/Hemoglobin. [facility] total in Blood [facility], [facility]) ID Date Data Source [id number] 02/02/2018 12:00:00 AM EDT [facility] ([facility] Name Value Range Interpretation Code Description Data Kimberly rce(s) Supporting Document(s ) PDF Image . Normal (applies to [facility] (St non-numeric results) [facility]) ID Date Data Source [id number] 02/02/2018 12:00:00 AM EDT [facility] ([facility] Name Value Range Interpretation Code Description Data Kimberly rce(s) Supporting Document(s ) ID Date Data Source [id number] 02/02/2018 12:00:00 AM EDT [facility] ([facility] Name Value Range Interpretation Description Data Sup porting Code Source(s) Document(s ) Hemoglobin 8.3 % Above high normal [facility] (St A1c/Hemoglobin. [facility] total in Blood [facility], [facility]) ID Date Data Source [id number] 02/02/2018 12:00:00 AM EDT [facility] ([facility] Name Value Range Interpretation Code Description Data Kimberly rce(s) Supporting Document(s ) PDF Image . Normal (applies to [facility] (St non-numeric results) [facility]) ID Date Data Source [id number] 02/02/2018 12:00:00 AM EDT [facility] ([facility] Name Value Range Interpretation Code Description Data Kimberly rce(s) Supporting Document(s ) ID Date Data Source [id number] 02/02/2018 12:00:00 AM EDT [facility] ([facility] Name Value Range Interpretation Description Data Sup porting Code Source(s) Document(s ) Hemoglobin 8.3 % Above high normal [facility] (St A1c/Hemoglobin. [facility] total in Blood [facility], [facility]) ID Date Data Source [id number] 02/02/2018 12:00:00 AM EDT [facility] ([facility] Name Value Range Interpretation Code Description Data Kimberly rce(s) Supporting Document(s ) PDF Image . Normal (applies to [facility] (St non-numeric results) [facility]) ID Date Data Source [id number] 02/02/2018 12:00:00 AM EDT [facility] ([facility] Name Value Range Interpretation Code Description Data Kimberly rce(s) Supporting Document(s ) ID Date Data Source [id number] 02/02/2018 12:00:00 AM EDT [facility] ([facility] Name Value Range Interpretation Description Data Sup porting Code Source(s) Document(s ) Hemoglobin 8.3 % Above high normal [facility] (St A1c/Hemoglobin. [facility] total in Blood [facility], [facility]) ID Date Data Source [id number] 02/02/2018 12:00:00 AM EDT [facility] ([facility] Name Value Range Interpretation Code Description Data Kimberly rce(s) Supporting Document(s ) PDF Image . Normal (applies to [facility] (St non-numeric results) [facility]) ID Date Data Source [id number] 02/02/2018 12:00:00 AM EDT [facility] ([facility] Name Value Range Interpretation Code Description Data Kimberly rce(s) Supporting Document(s ) ID Date Data Source [id number] 02/02/2018 12:00:00 AM EDT [facility] ([facility] Name Value Range Interpretation Description Data Sup porting Code Source(s) Document(s ) Hemoglobin 8.3 % Above high normal [facility] (St A1c/Hemoglobin. [facility] total in Blood [facility]) ID Date Data Source [id number] 02/02/2018 12:00:00 AM EDT [facility] ([facility] Name Value Range Interpretation Code Description Data Kimberly rce(s) Supporting Document(s ) PDF Image . Normal (applies to [facility] (St non-numeric results) [facility]) ID Date Data Source [id number] 02/02/2018 12:00:00 AM EDT [facility] ([facility] Name Value Range Interpretation Code Description Data Kimberly rce(s) Supporting Document(s ) ID Date Data Source [id number] 02/02/2018 12:00:00 AM EDT [facility] ([facility] Name Value Range Interpretation Description Data Sup porting Code Source(s) Document(s ) Hemoglobin 8.3 % Above high normal [facility] (St A1c/Hemoglobin. [facility] total in Blood [facility]) ID Date Data Source [id number] 02/02/2018 12:00:00 AM EDT [facility] ([facility] Name Value Range Interpretation Code Description Data Kimberly rce(s) Supporting Document(s ) PDF Image . Normal (applies to [facility] (St non-numeric results) [facility]) ID Date Data Source [id number] 02/02/2018 12:00:00 AM EDT [facility] ([facility] Name Value Range Interpretation Code Description Data Kimberly rce(s) Supporting Document(s ) ID Date Data Source [id number] 02/02/2018 12:00:00 AM EDT [facility] ([facility] Name Value Range Interpretation Description Data Sup porting Code Source(s) Document(s ) Hemoglobin 8.3 % Above high normal [facility] (St A1c/Hemoglobin. [facility]ony[facility] total in Blood [facility]) ID Date Data Source [id number] 02/02/2018 12:00:00 AM EDT [facility] ([facility] Name Value Range Interpretation Code Description Data Kimberly rce(s) Supporting Document(s ) PDF Image . Normal (applies to [facility] (St non-numeric results) [facility]) ID Date Data Source [id number] 02/02/2018 12:00:00 AM EDT [facility] ([facility] Name Value Range Interpretation Code Description Data Kimberly rce(s) Supporting Document(s ) ID Date Data Source [id number] 02/02/2018 12:00:00 AM EDT [facility] ([facility] Name Value Range Interpretation Description Data Sup porting Code Source(s) Document(s ) Hemoglobin 8.3 % Above high normal [facility] (St A1c/Hemoglobin. [facility] total in Blood [facility]) ID Date Data Source [id number] 02/02/2018 12:00:00 AM EDT [facility] ([facility] Name Value Range Interpretation Code Description Data Kimberly rce(s) Supporting Document(s ) PDF Image . Normal (applies to [facility] (St non-numeric results) [facility]) ID Date Data Source [id number] 02/02/2018 12:00:00 AM EDT [facility] ([facility] Name Value Range Interpretation Code Description Data Kimberly rce(s) Supporting Document(s ) PDF Image . Normal (applies to [facility] (St non-numeric results) [facility]) ID Date Data Source [id number] 02/02/2018 12:00:00 AM EDT [facility] ([facility] Name Value Range Interpretation Code Description Data Kimberly rce(s) Supporting Document(s ) ID Date Data Source [id number] 02/02/2018 12:00:00 AM EDT [facility] ([facility] Name Value Range Interpretation Description Data Sup porting Code Source(s) Document(s ) Hemoglobin 8.3 % Above high normal [facility] (St A1c/Hemoglobin. [facility]) ID Date Data Source [id number] 02/02/2018 12:00:00 AM EDT [facility] ([facility] Name Value Range Interpretation Code Description Data Kimberly rce(s) Supporting Document(s ) PDF Image . Normal (applies to [facility] (St non-numeric results) [facility]) ID Date Data Source [id number] 02/02/2018 12:00:00 AM EDT [facility] ([facility] Name Value Range Interpretation Code Description Data Kimberly rce(s) Supporting Document(s ) ID Date Data Source [id number] 02/02/2018 12:00:00 AM EDT [facility] ([facility] Name Value Range Interpretation Description Data Sup porting Code Source(s) Document(s ) Hemoglobin 9.1 % Above high normal [facility] (St A1c/Hemoglobin [facility]) Blood Hemoglobin 9.0 % Above high normal [facility] (St A1c/Hemoglobin [facility], [facility]) Blood Hemoglobin 11.6 % Above high normal [facility] (St A1c/Hemoglobin [facility], [facility]) Blood Hemoglobin 7.0 % Above high normal [facility] (St A1c/Hemoglobin [facility], [facility]) Blood Hemoglobin 9.4 % Above high normal [facility] (St A1c/Hemoglobin [facility]) Blood Hemoglobin 8.5 % Above high normal [facility] (St A1c/Hemoglobin [facility]) Blood Hemoglobin 8.3 % Above high normal [facility] (St A1c/Hemoglobin [facility]) Blood ID Date Data Source [id number] 02/02/2018 12:00:00 AM EDT [facility] ([facility] Name Value Range Interpretation Description Data Sup porting Code Source(s) Document(s ) PDF Image . Normal (applies to [facility] (St non-numeric [facility]) [facility]) PDF Image . Normal (applies to [facility] ([facility] non-numeric [facility]) [facility]) PDF Image . Normal (applies to [facility] (St non-numeric [facility] results) [facility]) PDF Not applicable Normal (applies to [facility] ([facility] non-numeric [facility]) [facility]) PDF . Normal (applies to [facility] ([facility] non-numeric [facility]) [facility]) PDF Image . Normal (applies to [facility] ([facility] non-numeric [facility]) [facility]) PDF Image . Normal (applies to [facility] ([facility] non-numeric [facility]) [facility]) PDF Image . Normal (applies to [facility] (St non-numeric [facility] results) [facility]) PDF Image . Normal (applies to [facility] (St non-numeric [facility]) [facility]) PDF Image . Normal (applies to [facility] ([facility] non-numeric [facility]) [facility]) PDF Image . Normal (applies to [facility] (St non-numeric [facility]) [facility]) ID Date Data Source [id number] 02/02/2018 12:00:00 AM EDT [facility] ([facility] Name Value Range Interpretation Code Description Data Kimberly rce(s) Supporting Document(s ) ID Date Data Source [id number] 02/02/2018 12:00:00 AM EDT [facility] Name Value Range Interpretation Description Data Sup porting Code Source(s) Document(s ) Hemoglobin 8.3 % Above high normal [facility] (St A1c/Hemoglobin. [facility], ) ID Date Data Source [id number] 02/02/2018 12:00:00 AM EDT [facility] ([facility], ) Name Value Range Interpretation Code Description Data Kimberly rce(s) Supporting Document(s ) PDF Image . Normal (applies to [facility] (St non-numeric results) [facility], ) ID Date Data Source [id number] 01/19/2018 12:00:00 AM EDT [facility] ([facility] Name Value Range Interpretation Description Data Sup porting Code Source(s) Document(s ) Specific gravity 1.021 Normal (applies [facility] (St of Pericardial to non-numeric [facility] fluid by results) [facility]) pH of Lower 5.0 Normal (applies [facility] (St respiratory to non-numeric [facility] specimen results) [facility], [facility]) Urine-Color Yellow Normal (applies [facility] (St to non-numeric [facility] results) [facility], [facility]) Appearance of Clear Normal (applies [facility] (St Abdomen to non-numeric [facility] results) [facility], [facility]) WBC Esterase Negative Normal (applies [facility] (St to non-numeric [facility] results) [facility], [facility]) Protein Abnormal [facility] (St [Mass/volume] in (applies to [facility] Lower non-numeric Medical, respiratory results) PC) specimen Glucose Abnormal [facility] (St [Mass/volume] in (applies to [facility] Urine collected non-numeric Medical, for unspecified results) PC) duration Ketones Negative Normal (applies [facility] (St [Presence] in to non-numeric [facility] Blood by Tablet results) [facility], [facility]) Bilirubin Negative Normal (applies [facility] (St [Presence] in to non-numeric [facility] Peritoneal fluid results) [facility], [facility]) Occult Blood Negative Normal (applies [facility] (St to non-numeric [facility] results) [facility], [facility]) Urobilinogen,Nani 0.2 EU/dL Normal (applies [facility] (St i-Qn to non-numeric [facility] results) Medical, ) Nitrite, Urine Negative Normal (applies [facility] (S t to non-numeric [facility] results) Medical, ) Microscopic See below: Normal (applies [facility] (St Examination to non-numeric [facility] results) [facility], ) ID Date Data Source [id number] 01/19/2018 12:00:00 AM EDT [facility] ([facility], ) Name Value Range Interpretation Code Description Data Supporting Source(s) Document(s ) Creatinine 165.0 Normal (applies to [facility] (St , Urine mg/dL non-numeric [facility] results) [facility], ) ID Date Data Source [id number] 01/19/2018 12:00:00 AM EDT [facility] ([facility], ) Name Value Range Interpretation Code Description Data Supporting Source(s) Document(s ) Sodium, 81 mmol/L Normal (applies to [facility] (St Urine non-numeric [facility] results) [facility], ) ID Date Data Source [id number] 01/19/2018 12:00:00 AM EDT [facility] ([facility], ) Name Value Range Interpretation Description Data Sup porting Code Source(s) Document(s ) Vitamin B12 607 pg/mL Normal (applies to [facility] (S t non-numeric [facility] results) Medical, ) Folate 13.0 Normal (applies to [facility] (St (Folic ng/mL non-numeric [facility] Acid), Serum results) [facility], ) ID Date Data Source [id number] 01/19/2018 12:00:00 AM EDT [facility] ([facility], ) Name Value Range Interpretation Description Data Sup porting Code Source(s) Document(s ) Glucose 238 mg/dL Above high normal [facility] (St [Mass/volume] [facility] in Urine Medical, ) collected for unspecified duration Urea nitrogen 21 mg/dL Normal (applies [facility] (St [Mass/volume] to non-numeric [facility] in Serum or results) Medical, ) Plasma Creatinine 1.13 Normal (applies [facility] (St [Interpretation mg/dL to non-numeric [facility] ] in Urine results) [facility], ) eGFR If 74 Normal (applies [facility] (St NonAfricn Am mL/min/1. to non-numeric [facility] 73 results) Medical, ) eGFR If Africn 85 Normal (applies [facility] (S t Am mL/min/1. to non-numeric [facility] 73 results) Medical, ) BUN/Creatinine 19 Normal (applies [facility] (S t Ratio to non-numeric [facility] results) Medical, ) Sodium 140 Normal (applies [facility] (St [Moles/volume] mmol/L to non-numeric [facility] in Serum or results) Medical, ) Plasma Potassium 4.5 Normal (applies [facility] (St [Mass/volume] mmol/L to non-numeric [facility] in Blood results) Medical, ) Chloride 103 Normal (applies [facility] (St [Moles/volume] mmol/L to non-numeric [facility] in Serum or results) Medical, ) Plasma Carbon dioxide, 19 mmol/L Below low normal [facility] (St total [facility] [Moles/volume] Medical, ) in Serum or Plasma Calcium 9.8 mg/dL Normal (applies [facility] (St [Moles/volume] to non-numeric [facility] in Urine results) Medical, ) collected for unspecified duration ID Date Data Source [id number] 01/19/2018 12:00:00 AM EDT [facility] ([facility] ) Name Value Range Interpretation Description Data Sup porting Code Source(s) Document(s ) WBC 0-5 Normal (applies [facility] (St to non-numeric [facility] results) [facility], [facility]) RBC 0-2 Normal (applies [facility] (St to non-numeric [facility] results) Medical, ) Casts [#/area] Present Abnormal (applies [facility] (St in Urine to non-numeric [facility] sediment by results) Medical, ) Automated count Epithelial 0-10 Normal (applies [facility] (St Cells (non to non-numeric [facility] renal) results) Medical, ) Cast Type Hyaline Normal (applies [facility] (St casts to non-numeric [facility] results) Medical, ) Mucus Threads Present Normal (applies [facility] (St to non-numeric [facility] results) Medical, ) Bacteria Few Normal (applies [facility] (St [Presence] in to non-numeric [facility] Prostatic results) Medical, ) fluid by Light microscopy ID Date Data Source [id number] 01/19/2018 12:00:00 AM EDT [facility] ([facility]) Name Value Range Interpretation Code Description Data Kimberly rce(s) Supporting Document(s ) . Normal (applies to [facility] (St non-numeric results) [facility]) Dear Normal (applies to [facility] (St Doctor, non-numeric results) [facility]) ID Date Data Source [id number] 01/19/2018 12:00:00 AM EDT [facility] ([facility]) Name Value Range Interpretation Description Data Sup porting Code Source(s) Document(s ) Specific gravity 1.021 Normal (applies [facility] (St of Pericardial to non-numeric [facility] fluid by results) [facility]) pH of Lower 5.0 Normal (applies [facility] (St respiratory to non-numeric [facility] specimen results) [facility], [facility]) Urine-Color Yellow Normal (applies [facility] (St to non-numeric [facility] results) [facility], [facility]) Appearance of Clear Normal (applies [facility] (St Abdomen to non-numeric [facility] results) [facility], [facility]) WBC Esterase Negative Normal (applies [facility] (St to non-numeric [facility] results) [facility], [facility]) Protein Abnormal [facility] (St [Mass/volume] in (applies to [facility] Lower non-numeric Medical, respiratory results) PC) specimen Glucose Abnormal [facility] (St [Mass/volume] in (applies to [facility] Urine collected non-numeric Medical, for unspecified results) PC) duration Ketones Negative Normal (applies [facility] (St [Presence] in to non-numeric [facility] Blood by Tablet results) Medical, PC) Occult Blood Negative Normal (applies [facility] (St to non-numeric [facility] results) [facility], [facility]) Bilirubin Negative Normal (applies [facility] (St [Presence] in to non-numeric [facility] Peritoneal fluid results) Medical, PC) Urobilinogen,Nani 0.2 EU/dL Normal (applies [facility] (St i-Qn to non-numeric [facility] results) Medical, PC) Nitrite, Urine Negative Normal (applies [facility] (S t to non-numeric [facility] results) [facility], PC) Microscopic See below: Normal (applies [facility] (St Examination to non-numeric [facility] results) [facility], [facility]) ID Date Data Source [id number] 01/19/2018 12:00:00 AM EDT [facility] ([facility], ) Name Value Range Interpretation Code Description Data Supporting Source(s) Document(s ) Creatinine 165.0 Normal (applies to [facility] (St , Urine mg/dL non-numeric [facility] results) Medical, ) ID Date Data Source [id number] 01/19/2018 12:00:00 AM EDT [facility] ([facility], ) Name Value Range Interpretation Code Description Data Supporting Source(s) Document(s ) Sodium, 81 mmol/L Normal (applies to [facility] (St Urine non-numeric [facility] results) Medical, ) ID Date Data Source [id number] 01/19/2018 12:00:00 AM EDT [facility] ([facility], ) Name Value Range Interpretation Description Data Sup porting Code Source(s) Document(s ) Folate 13.0 Normal (applies to [facility] (St (Folic ng/mL non-numeric [facility] Acid), Serum results) Medical, ) Vitamin B12 607 pg/mL Normal (applies to [facility] (S t non-numeric [facility] results) Medical, ) ID Date Data Source [id number] 01/19/2018 12:00:00 AM EDT [facility] ([facility], ) Name Value Range Interpretation Description Data Sup porting Code Source(s) Document(s ) Glucose 238 mg/dL Above high normal [facility] (St [Mass/volume] [facility] in Urine Medical, ) collected for unspecified duration Urea nitrogen 21 mg/dL Normal (applies [facility] (St [Mass/volume] to non-numeric [facility] in Serum or results) Medical, ) Plasma Creatinine 1.13 Normal (applies [facility] (St [Interpretation mg/dL to non-numeric [facility] ] in Urine results) Medical, ) eGFR If 74 Normal (applies [facility] (St NonAfricn Am mL/min/1. to non-numeric [facility] 73 results) Medical, ) eGFR If Africn 85 Normal (applies [facility] (S t Am mL/min/1. to non-numeric [facility] 73 results) Medical, ) BUN/Creatinine 19 Normal (applies [facility] (S t Ratio to non-numeric [facility] results) Medical, ) Potassium 4.5 Normal (applies [facility] (St [Mass/volume] mmol/L to non-numeric [facility] in Blood results) Medical, ) Sodium 140 Normal (applies [facility] (St [Moles/volume] mmol/L to non-numeric [facility] in Serum or results) Medical, ) Plasma Chloride 103 Normal (applies [facility] (St [Moles/volume] mmol/L to non-numeric [facility] in Serum or results) Medical, ) Plasma Carbon dioxide, 19 mmol/L Below low normal [facility] (St total [facility] [Moles/volume] Medical, ) in Serum or Plasma Calcium 9.8 mg/dL Normal (applies [facility] (St [Moles/volume] to non-numeric [facility] in Urine results) Medical, ) collected for unspecified duration ID Date Data Source [id number] 01/19/2018 12:00:00 AM EDT [facility] ([facility], ) Name Value Range Interpretation Description Data Sup porting Code Source(s) Document(s ) WBC 0-5 Normal (applies [facility] (St to non-numeric [facility] results) Medical, ) RBC 0-2 Normal (applies [facility] (St to non-numeric [facility] results) Medical, ) Epithelial 0-10 Normal (applies [facility] (St Cells (non to non-numeric [facility] renal) results) Medical, ) Casts [#/area] Present Abnormal (applies [facility] (St in Urine to non-numeric [facility] sediment by results) Medical, ) Automated count Cast Type Hyaline Normal (applies [facility] (St casts to non-numeric [facility] results) Medical, ) Mucus Threads Present Normal (applies [facility] (St to non-numeric [facility] results) Medical, ) Bacteria Few Normal (applies [facility] (St [Presence] in to non-numeric [facility] Prostatic results) Medical, ) fluid by Light microscopy ID Date Data Source [id number] 01/19/2018 12:00:00 AM EDT [facility] ([facility], ) Name Value Range Interpretation Code Description Data Kimberly rce(s) Supporting Document(s ) . Normal (applies to [facility] (St non-numeric results) [facility], ) Dear Normal (applies to [facility] (St Doctor, non-numeric results) [facility], ) ID Date Data Source [id number] 01/19/2018 12:00:00 AM EDT [facility] ([facility], ) Name Value Range Interpretation Description Data Sup porting Code Source(s) Document(s ) Specific gravity 1.021 Normal (applies [facility] (St of Pericardial to non-numeric [facility] fluid by results) [facility], [facility]) pH of Lower 5.0 Normal (applies [facility] (St respiratory to non-numeric [facility] specimen results) [facility], PC) Urine-Color Yellow Normal (applies [facility] (St to non-numeric [facility] results) Medical, PC) Appearance of Clear Normal (applies [facility] (St Abdomen to non-numeric [facility] results) Medical, PC) WBC Esterase Negative Normal (applies [facility] (St to non-numeric [facility] results) Medical, PC) Protein Abnormal [facility] (St [Mass/volume] in (applies to [facility] Lower non-numeric Medical, respiratory results) PC) specimen Glucose Abnormal [facility] (St [Mass/volume] in (applies to [facility] Urine collected non-numeric Medical, for unspecified results) PC) duration Ketones Negative Normal (applies [facility] (St [Presence] in to non-numeric [facility] Blood by Tablet results) Medical, PC) Bilirubin Negative Normal (applies [facility] (St [Presence] in to non-numeric [facility] Peritoneal fluid results) Medical, PC) Occult Blood Negative Normal (applies [facility] (St to non-numeric [facility] results) Medical, PC) Urobilinogen,Nani 0.2 EU/dL Normal (applies [facility] (St i-Qn to non-numeric [facility] results) Medical, PC) Nitrite, Urine Negative Normal (applies [facility] (S t to non-numeric [facility] results) Medical, PC) Microscopic See below: Normal (applies [facility] (St Examination to non-numeric [facility] results) Medical, ) ID Date Data Source [id number] 01/19/2018 12:00:00 AM EDT [facility] ([facility] ) Name Value Range Interpretation Code Description Data Supporting Source(s) Document(s ) Creatinine 165.0 Normal (applies to [facility] (St , Urine mg/dL non-numeric [facility] results) Medical, ) ID Date Data Source [id number] 01/19/2018 12:00:00 AM EDT [facility] ([facility], ) Name Value Range Interpretation Code Description Data Supporting Source(s) Document(s ) Sodium, 81 mmol/L Normal (applies to [facility] (St Urine non-numeric [facility] results) Medical, ) ID Date Data Source [id number] 01/19/2018 12:00:00 AM EDT [facility] ([facility] ) Name Value Range Interpretation Description Data Sup porting Code Source(s) Document(s ) Vitamin B12 607 pg/mL Normal (applies to [facility] (S t non-numeric [facility] results) Medical, ) Folate 13.0 Normal (applies to [facility] (St (Folic ng/mL non-numeric [facility] Acid), Serum results) Medical, ) ID Date Data Source [id number] 01/19/2018 12:00:00 AM EDT [facility] ([facility] ) Name Value Range Interpretation Description Data Sup porting Code Source(s) Document(s ) Glucose 238 mg/dL Above high normal [facility] (St [Mass/volume] [facility] in Urine Medical, ) collected for unspecified duration Urea nitrogen 21 mg/dL Normal (applies [facility] (St [Mass/volume] to non-numeric [facility] in Serum or results) Medical, ) Plasma Creatinine 1.13 Normal (applies [facility] (St [Interpretation mg/dL to non-numeric Dn[facility]'s ] in Urine results) Medical, ) eGFR If 74 Normal (applies [facility] (St NonAfricn Am mL/min/1. to non-numeric [facility] 73 results) Medical, ) eGFR If Africn 85 Normal (applies [facility] (S t Am mL/min/1. to non-numeric [facility] 73 results) Medical, ) Sodium 140 Normal (applies [facility] (St [Moles/volume] mmol/L to non-numeric [facility] in Serum or results) Medical, ) Plasma BUN/Creatinine 19 Normal (applies [facility] (S t Ratio to non-numeric [facility] results) Medical, ) Potassium 4.5 Normal (applies [facility] (St [Mass/volume] mmol/L to non-numeric [facility] in Blood results) Medical, ) Chloride 103 Normal (applies [facility] (St [Moles/volume] mmol/L to non-numeric [facility] in Serum or results) Medical, ) Plasma Carbon dioxide, 19 mmol/L Below low normal [facility] (St total [facility] [Moles/volume] Medical, ) in Serum or Plasma Calcium 9.8 mg/dL Normal (applies [facility] (St [Moles/volume] to non-numeric [facility] in Urine results) Medical, ) collected for unspecified duration ID Date Data Source [id number] 01/19/2018 12:00:00 AM EDT [facility] ([facility] ) Name Value Range Interpretation Description Data Sup porting Code Source(s) Document(s ) WBC 0-5 Normal (applies [facility] (St to non-numeric [facility] results) Medical, ) RBC 0-2 Normal (applies [facility] (St to non-numeric [facility] results) Medical, ) Epithelial 0-10 Normal (applies [facility] (St Cells (non to non-numeric [facility] renal) results) Medical, ) Casts [#/area] Present Abnormal (applies [facility] (St in Urine to non-numeric [facility] sediment by results) Medical, ) Automated count Cast Type Hyaline Normal (applies [facility] (St casts to non-numeric [facility] results) Medical, ) Bacteria Few Normal (applies [facility] (St [Presence] in to non-numeric [facility] Prostatic results) Medical, ) fluid by Light microscopy Mucus Threads Present Normal (applies [facility] (St to non-numeric [facility] results) Medical, ) ID Date Data Source [id number] 01/19/2018 12:00:00 AM EDT [facility] ([facility] ) Name Value Range Interpretation Code Description Data Kimberly rce(s) Supporting Document(s ) Dear Normal (applies to [facility] (St Doctor, non-numeric results) [facility]) . Normal (applies to [facility] (St non-numeric results) [facility]) ID Date Data Source [id number] 01/19/2018 12:00:00 AM EDT [facility] ([facility] ) Name Value Range Interpretation Description Data Sup porting Code Source(s) Document(s ) Albumin, U 77.5 % Normal (applies to [facility] (St non-numeric [facility] results) Medical, ) Alpha-1-Gl 1.2 % Normal (applies to [facility] (St obulin, U non-numeric [facility] results) Medical, ) Alpha-2-Gl 4.9 % Normal (applies to [facility] (St obulin, U non-numeric [facility] results) Medical, ) Gamma 6.3 % Normal (applies to [facility] (St Globulin, non-numeric [facility] U results) Medical, ) Beta 10.1 % Normal (applies to [facility] (St Globulin, non-numeric [facility] U results) Medical, ) M-Porfirio, % Not Observed Normal (applies to [facility] (St non-numeric [facility] results) [facility], ) Please Normal (applies to [facility] (St note: non-numeric [facility] results) Medical, ) PDF . Normal (applies to [facility] (St non-numeric [facility] results) [facility], ) Creatinine 165.0 mg/dL Normal (applies to [facility] ( St , Urine non-numeric [facility] results) [facility], ) ID Date Data Source [id number] 01/19/2018 12:00:00 AM EDT [facility] ([facility], ) Name Value Range Interpretation Code Description Data Supporting Source(s) Document(s ) Creatinine 165.0 Normal (applies to [facility] (St , Urine mg/dL non-numeric [facility] results) [facility], ) ID Date Data Source [id number] 01/19/2018 12:00:00 AM EDT [facility] ([facility], ) Name Value Range Interpretation Description Data Sup porting Code Source(s) Document(s ) Vitamin B12 607 pg/mL Normal (applies to [facility] (S t non-numeric [facility] results) Medical, ) Folate 13.0 Normal (applies to [facility] (St (Folic ng/mL non-numeric [facility] Acid), Serum results) [facility], ) ID Date Data Source [id number] 01/19/2018 12:00:00 AM EDT [facility] ([facility], ) Name Value Range Interpretation Description Data Sup porting Code Source(s) Document(s ) Urea nitrogen 21 mg/dL Normal (applies [facility] (St [Mass/volume] to non-numeric [facility] in Serum or results) Medical, ) Plasma Glucose 238 mg/dL Above high normal [facility] (St [Mass/volume] [facility] in Urine [facility], ) collected for unspecified duration Creatinine 1.13 Normal (applies [facility] (St [Interpretation mg/dL to non-numeric [facility] ] in Urine results) Medical, ) eGFR If 74 Normal (applies [facility] (St NonAfricn Am mL/min/1. to non-numeric [facility] 73 results) Medical, ) BUN/Creatinine 19 Normal (applies [facility] (S t Ratio to non-numeric [facility] results) Medical, ) eGFR If Africn 85 Normal (applies [facility] (S t Am mL/min/1. to non-numeric [facility] 73 results) Medical, ) Sodium 140 Normal (applies [facility] (St [Moles/volume] mmol/L to non-numeric [facility] in Serum or results) Medical, ) Plasma Potassium 4.5 Normal (applies [facility] (St [Mass/volume] mmol/L to non-numeric [facility] in Blood results) [facility], ) Carbon dioxide, 19 mmol/L Below low normal [facility] (St total [facility] [Moles/volume] Medical, ) in Serum or Plasma Chloride 103 Normal (applies [facility] (St [Moles/volume] mmol/L to non-numeric [facility] in Serum or results) Medical, ) Plasma Calcium 9.8 mg/dL Normal (applies [facility] (St [Moles/volume] to non-numeric Dony's in Urine results) [facility], ) collected for unspecified duration ID Date Data Source [id number] 01/19/2018 12:00:00 AM EDT [facility] ([facility], ) Name Value Range Interpretation Description Data Sup porting Code Source(s) Document(s ) WBC 0-5 Normal (applies [facility] (St to non-numeric Dony's results) Medical, ) Epithelial 0-10 Normal (applies [facility] (St Cells (non to non-numeric Dony's renal) results) Medical, ) RBC 0-2 Normal (applies [facility] (St to non-numeric Dony's results) Medical, ) Casts [#/area] Present Abnormal (applies [facility] (St in Urine to non-numeric Dony's sediment by results) Medical, PC) Automated count Mucus Threads Present Normal (applies [facility] (St to non-numeric Dony's results) Medical, PC) Cast Type Hyaline Normal (applies [facility] (St casts to non-numeric Dony's results) Medical, PC) Bacteria Few Normal (applies [facility] (St [Presence] in to non-numeric Dony's Prostatic results) Medical, PC) fluid by Light microscopy ID Date Data Source [id number] 01/19/2018 12:00:00 AM EDT [facility] ([facility]) Name Value Range Interpretation Description Data Sup porting Code Source(s) Document(s ) Specific gravity 1.021 Normal (applies [facility] (St of Pericardial to non-numeric Dony's fluid by results) Medical, Refractometry PC) pH of Lower 5.0 Normal (applies [facility] (St respiratory to non-numeric Dony's specimen results) Medical, PC) Urine-Color Yellow Normal (applies [facility] (St to non-numeric Dony's results) Medical, PC) WBC Esterase Negative Normal (applies [facility] (St to non-numeric Dony's results) Medical, PC) Appearance of Clear Normal (applies [facility] (St Abdomen to non-numeric Dony's results) Medical, PC) Protein Abnormal [facility] (St [Mass/volume] in (applies to [facility]ony's Lower non-numeric Medical, respiratory results) PC) specimen Glucose Abnormal [facility] (St [Mass/volume] in (applies to [facility]ony's Urine collected non-numeric Medical, for unspecified results) PC) duration Occult Blood Negative Normal (applies [facility] (St to non-numeric [facility]ony's results) Medical, PC) Ketones Negative Normal (applies [facility] (St [Presence] in to non-numeric Dony's Blood by Tablet results) Medical, PC) Bilirubin Negative Normal (applies [facility] (St [Presence] in to non-numeric Dony's Peritoneal fluid results) Medical, PC) Urobilinogen,Nani 0.2 EU/dL Normal (applies [facility] (St i-Qn to non-numeric [facility]'s results) Medical, PC) Microscopic See below: Normal (applies [facility] (St Examination to non-numeric [facility]ony's results) Medical, PC) Nitrite, Urine Negative Normal (applies [facility] (S t to non-numeric Dony's results) Medical, ) ID Date Data Source [id number] 01/19/2018 12:00:00 AM EDT [facility] ([facility], ) Name Value Range Interpretation Code Description Data Supporting Source(s) Document(s ) Creatinine 165.0 Normal (applies to [facility] (St , Urine mg/dL non-numeric Dony's results) Medical, ) ID Date Data Source [id number] 01/19/2018 12:00:00 AM EDT [facility], ) Name Value Range Interpretation Code Description Data Supporting Source(s) Document(s ) Sodium, 81 mmol/L Normal (applies to [facility] (St Urine non-numeric Dony's results) [facility], ) ID Date Data Source [id number] 01/19/2018 12:00:00 AM EDT [facility], ) Name Value Range Interpretation Description Data Sup porting Code Source(s) Document(s ) Vitamin B12 607 pg/mL Normal (applies to [facility] (S t non-numeric Dony's results) Medical, ) Folate 13.0 Normal (applies to [facility] (St (Folic ng/mL non-numeric [facility] Acid), Serum results) [facility], ) ID Date Data Source [id number] 01/19/2018 12:00:00 AM EDT [facility], ) Name Value Range Interpretation Description Data Sup porting Code Source(s) Document(s ) Glucose 238 mg/dL Above high normal [facility] (St [Mass/volume] Dony's in Urine Medical, ) collected for unspecified duration Creatinine 1.13 Normal (applies [facility] (St [Interpretation mg/dL to non-numeric Dony's ] in Urine results) Medical, ) Urea nitrogen 21 mg/dL Normal (applies [facility] (St [Mass/volume] to non-numeric Dony's in Serum or results) Medical, ) Plasma eGFR If 74 Normal (applies [facility] (St NonAfricn Am mL/min/1. to non-numeric Dony's 73 results) Medical, ) eGFR If Africn 85 Normal (applies [facility] (S t Am mL/min/1. to non-numeric Dony's 73 results) Medical, ) BUN/Creatinine 19 Normal (applies [facility] (S t Ratio to non-numeric Dony's results) Medical, ) Sodium 140 Normal (applies [facility] (St [Moles/volume] mmol/L to non-numeric Dony[facility] in Serum or results) Medical, ) Plasma Potassium 4.5 Normal (applies [facility] (St [Mass/volume] mmol/L to non-numeric Dony's in Blood results) Medical, ) Carbon dioxide, 19 mmol/L Below low normal [facility] (St total Dony's [Moles/volume] Medical, ) in Serum or Plasma Chloride 103 Normal (applies [facility] (St [Moles/volume] mmol/L to non-numeric Dony's in Serum or results) Medical, ) Plasma Calcium 9.8 mg/dL Normal (applies [facility] (St [Moles/volume] to non-numeric Dony's in Urine results) Medical, ) collected for unspecified duration ID Date Data Source [id number] 01/19/2018 12:00:00 AM EDT [facility] ([facility], ) Name Value Range Interpretation Description Data Sup porting Code Source(s) Document(s ) WBC 0-5 Normal (applies [facility] (St to non-numeric Dony's results) Medical, ) RBC 0-2 Normal (applies [facility] (St to non-numeric [facility]ony's results) Medical, ) Epithelial 0-10 Normal (applies [facility] (St Cells (non to non-numeric Dony's renal) results) Medical, ) Cast Type Hyaline Normal (applies [facility] (St casts to non-numeric Dony's results) Medical, ) Casts [#/area] Present Abnormal (applies [facility] (St in Urine to non-numeric Dony's sediment by results) Medical, ) Automated count Mucus Threads Present Normal (applies [facility] (St to non-numeric [facility]'s results) Medical, ) Bacteria Few Normal (applies [facility] (St [Presence] in to non-numeric Dony's Prostatic results) Medical, ) fluid by Light microscopy ID Date Data Source [id number] 01/19/2018 12:00:00 AM EDT [facility] ([facility], ) Name Value Range Interpretation Code Description Data Kimberly rce(s) Supporting Document(s ) . Normal (applies to [facility] (St non-numeric results) [facility] Me dical, ) Dear Normal (applies to [facility] (St Doctor, non-numeric results) [facility] Nd dical, ) ID Date Data Source [id number] 01/19/2018 12:00:00 AM EDT [facility] ([facility], ) Name Value Range Interpretation Description Data Sup porting Code Source(s) Document(s ) Specific gravity 1.021 Normal (applies [facility] (St of Pericardial to non-numeric Dony's fluid by results) Medical, Refractometry [facility]) pH of Lower 5.0 Normal (applies [facility] (St respiratory to non-numeric [facility]ony's specimen results) Medical, ) Urine-Color Yellow Normal (applies [facility] (St to non-numeric Dony's results) Medical, ) Appearance of Clear Normal (applies [facility] (St Abdomen to non-numeric Dony's results) Medical, PC) WBC Esterase Negative Normal (applies [facility] (St to non-numeric [facility]ony's results) Medical, PC) Protein Abnormal [facility] (St [Mass/volume] in (applies to [facility]ony's Lower non-numeric Medical, respiratory results) PC) specimen Glucose Abnormal [facility] (St [Mass/volume] in (applies to Dony's Urine collected non-numeric Medical, for unspecified results) PC) duration Occult Blood Negative Normal (applies [facility] (St to non-numeric [facility]ony's results) Medical, PC) Ketones Negative Normal (applies [facility] (St [Presence] in to non-numeric Dony's Blood by Tablet results) Medical, PC) Bilirubin Negative Normal (applies [facility] (St [Presence] in to non-numeric Dony's Peritoneal fluid results) Medical, ) Urobilinogen,Nani 0.2 EU/dL Normal (applies [facility] (St i-Qn to non-numeric Dony's results) Medical, PC) Nitrite, Urine Negative Normal (applies [facility] (S t to non-numeric Dony's results) Medical, PC) Microscopic See below: Normal (applies [facility] (St Examination to non-numeric Dony's results) Medical, ) ID Date Data Source [id number] 01/19/2018 12:00:00 AM EDT [facility] ([facility], ) Name Value Range Interpretation Code Description Data Supporting Source(s) Document(s ) Creatinine 165.0 Normal (applies to [facility] (St , Urine mg/dL non-numeric Dony's results) Medical, ) ID Date Data Source [id number] 01/19/2018 12:00:00 AM EDT [facility] ([facility], ) Name Value Range Interpretation Code Description Data Supporting Source(s) Document(s ) Dear Normal (applies to [facility] (St Doctor, non-numeric Dony's results) Medical, ) Sodium, 81 mmol/L Normal (applies to [facility] (St Urine non-numeric Dony's results) Medical, ) ID Date Data Source [id number] 01/19/2018 12:00:00 AM EDT [facility], ) Name Value Range Interpretation Description Data Sup porting Code Source(s) Document(s ) Aldos/Renin <5.6 Normal (applies to [facility] (S t Ratio non-numeric Dony's results) Medical, ) Vitamin B12 607 pg/mL Normal (applies to [facility] (S t non-numeric Dony's results) Medical, ) Folate 13.0 Normal (applies to [facility] (St (Folic ng/mL non-numeric [facility] Acid), Serum results) [facility], ) ID Date Data Source [id number] 01/19/2018 12:00:00 AM EDT [facility] ([facility], ) Name Value Range Interpretation Description Data Sup porting Code Source(s) Document(s ) Urea nitrogen 21 mg/dL Normal (applies [facility] (St [Mass/volume] to non-numeric Dony's in Serum or results) Medical, ) Plasma Glucose 238 mg/dL Above high normal [facility] (St [Mass/volume] Dony's in Urine Medical, ) collected for unspecified duration Creatinine 1.13 Normal (applies [facility] (St [Interpretation mg/dL to non-numeric Dony's ] in Urine results) Medical, ) eGFR If 74 Normal (applies [facility] (St NonAfricn Am mL/min/1. to non-numeric Dony's 73 results) Medical, ) BUN/Creatinine 19 Normal (applies [facility] (S t Ratio to non-numeric Dony's results) Medical, ) eGFR If Africn 85 Normal (applies [facility] (S t Am mL/min/1. to non-numeric Dony's 73 results) Medical, ) Sodium 140 Normal (applies [facility] (St [Moles/volume] mmol/L to non-numeric Dony's in Serum or results) Medical, ) Plasma Potassium 4.5 Normal (applies [facility] (St [Mass/volume] mmol/L to non-numeric Dony's in Blood results) Medical, ) Chloride 103 Normal (applies [facility] (St [Moles/volume] mmol/L to non-numeric Dony's in Serum or results) Medical, ) Plasma Calcium 9.8 mg/dL Normal (applies [facility] (St [Moles/volume] to non-numeric Dony's in Urine results) Medical, ) collected for unspecified duration Carbon dioxide, 19 mmol/L Below low normal [facility] (St total Dony's [Moles/volume] Medical, ) in Serum or Plasma ID Date Data Source [id number] 01/19/2018 12:00:00 AM EDT [facility] ([facility], ) Name Value Range Interpretation Description Data Sup porting Code Source(s) Document(s ) WBC 0-5 Normal (applies [facility] (St to non-numeric Dony's results) Medical, ) RBC 0-2 Normal (applies [facility] (St to non-numeric Dony's results) Medical, ) Epithelial 0-10 Normal (applies [facility] (St Cells (non to non-numeric Dony's renal) results) Medical, ) Casts [#/area] Present Abnormal (applies [facility] (St in Urine to non-numeric Dony's sediment by results) Medical, ) Automated count Mucus Threads Present Normal (applies [facility] (St to non-numeric Dony's results) Medical, ) Cast Type Hyaline Normal (applies [facility] (St casts to non-numeric Dony's results) Medical, ) Bacteria Few Normal (applies [facility] (St [Presence] in to non-numeric Dony's Prostatic results) Medical, ) fluid by Light microscopy ID Date Data Source [id number] 01/19/2018 12:00:00 AM EDT [facility] ([facility], ) Name Value Range Interpretation Description Data Sup porting Code Source(s) Document(s ) Urine-Color Yellow Normal (applies [facility] (St to non-numeric Dony's results) Medical, ) Appearance of Clear Normal (applies [facility] (St Abdomen to non-numeric Dony's results) Medical, PC) Protein Abnormal (applies [facility] (St [Mass/volume] to non-numeric Dony's in Lower results) Medical, PC) respiratory specimen WBC Esterase Negative Normal (applies [facility] (St to non-numeric Dony's results) Medical, PC) Glucose Abnormal (applies [facility] (St [Mass/volume] to non-numeric Dony's in Urine results) Medical, PC) collected for unspecified duration Ketones Negative Normal (applies [facility] (St [Presence] in to non-numeric Dony's Blood by results) Medical, PC) Tablet Occult Blood Negative Normal (applies [facility] (St to non-numeric Dony's results) Medical, PC) Urobilinogen,S 0.2 mg/dL Normal (applies [facility] (S t mere-Qn to non-numeric Dony's results) Medical, PC) Bilirubin Negative Normal (applies [facility] (St [Presence] in to non-numeric Dony's Peritoneal results) Medical, PC) fluid Nitrite, Urine Negative Normal (applies [facility] (S t to non-numeric Dony's results) Medical, PC) Microscopic See below: Normal (applies [facility] (St Examination to non-numeric Dony's results) Medical, PC) . Normal (applies [facility] (St to non-numeric Dony's results) Medical, ) Dear Doctor, Normal (applies [facility] (St to non-numeric Dony's results) Medical, ) ID Date Data Source [id number] 01/19/2018 12:00:00 AM EDT [facility] ([facility], ) Name Value Range Interpretation Description Data Sup porting Code Source(s) Document(s ) pH of Lower 5.0 Normal (applies [facility] (St respiratory to non-numeric Dony's specimen results) Medical, PC) Specific gravity 1.021 Normal (applies [facility] (St of Pericardial to non-numeric Dony's fluid by results) Medical, [facility]) Urine-Color Yellow Normal (applies [facility] (St to non-numeric Dony's results) Medical, PC) Appearance of Clear Normal (applies [facility] (St Abdomen to non-numeric Dony's results) Medical, PC) WBC Esterase Negative Normal (applies [facility] (St to non-numeric Dony's results) Medical, PC) Protein Abnormal [facility] (St [Mass/volume] in (applies to Dony's Lower non-numeric Medical, respiratory results) PC) specimen Glucose Abnormal [facility] (St [Mass/volume] in (applies to Dony's Urine collected non-numeric Medical, for unspecified results) ) duration Occult Blood Negative Normal (applies [facility] (St to non-numeric Dony's results) Medical, ) Ketones Negative Normal (applies [facility] (St [Presence] in to non-numeric Dony's Blood by Tablet results) Medical, ) Bilirubin Negative Normal (applies [facility] (St [Presence] in to non-numeric Dony's Peritoneal fluid results) Medical, ) Urobilinogen,Nani 0.2 EU/dL Normal (applies [facility] (St i-Qn to non-numeric Dony's results) [facility], ) Nitrite, Urine Negative Normal (applies [facility] (S t to non-numeric Dony's results) [facility], ) Microscopic See below: Normal (applies [facility] (St Examination to non-numeric Dony's results) Medical, ) ID Date Data Source [id number] 01/19/2018 12:00:00 AM EDT [facility] ( [facility], ) Name Value Range Interpretation Code Description Data Supporting Source(s) Document(s ) Creatinine 165.0 Normal (applies to [facility] (St , Urine mg/dL non-numeric Dony's results) [facility], ) ID Date Data Source [id number] 01/19/2018 12:00:00 AM EDT [facility] ([facility], ) Name Value Range Interpretation Code Description Data Supporting Source(s) Document(s ) Sodium, 81 mmol/L Normal (applies to [facility] (St Urine non-numeric Dony's results) Medical, ) ID Date Data Source [id number] 01/19/2018 12:00:00 AM EDT [facility] ([facility], ) Name Value Range Interpretation Description Data Sup porting Code Source(s) Document(s ) Vitamin B12 607 pg/mL Normal (applies to [facility] (S t non-numeric Dony's results) Medical, ) Folate 13.0 Normal (applies to [facility] (St (Folic ng/mL non-numeric Dony's Acid), Serum results) Medical, ) ID Date Data Source [id number] 01/19/2018 12:00:00 AM EDT [facility] ([facility], ) Name Value Range Interpretation Description Data Sup porting Code Source(s) Document(s ) Urea nitrogen 21 mg/dL Normal (applies [facility] (St [Mass/volume] to non-numeric Dony's in Serum or results) Medical, ) Plasma Glucose 238 mg/dL Above high normal [facility] (St [Mass/volume] Dony's in Urine Medical, ) collected for unspecified duration Creatinine 1.13 Normal (applies [facility] (St [Interpretation mg/dL to non-numeric Dony's ] in Urine results) Medical, ) eGFR If 74 Normal (applies [facility] (St NonAfricn Am mL/min/1. to non-numeric Dony's 73 results) Medical, ) eGFR If Africn 85 Normal (applies [facility] (S t Am mL/min/1. to non-numeric Dony's 73 results) Medical, ) BUN/Creatinine 19 Normal (applies [facility] (S t Ratio to non-numeric Dony's results) Medical, ) Sodium 140 Normal (applies [facility] (St [Moles/volume] mmol/L to non-numeric Dony's in Serum or results) Medical, ) Plasma Potassium 4.5 Normal (applies [facility] (St [Mass/volume] mmol/L to non-numeric Dony's in Blood results) [facility], ) Chloride 103 Normal (applies [facility] (St [Moles/volume] mmol/L to non-numeric Dony's in Serum or results) [facility], ) Plasma Calcium 9.8 mg/dL Normal (applies [facility] (St [Moles/volume] to non-numeric Dony's in Urine results) Medical, ) collected for unspecified duration Carbon dioxide, 19 mmol/L Below low normal [facility] (St total Dony's [Moles/volume] [facility], ) in Serum or Plasma ID Date Data Source [id number] 01/19/2018 12:00:00 AM EDT [facility] ([facility], ) Name Value Range Interpretation Description Data Sup porting Code Source(s) Document(s ) WBC 0-5 Normal (applies [facility] (St to non-numeric Dony's results) Medical, ) RBC 0-2 Normal (applies [facility] (St to non-numeric Dony's results) Medical, PC) Epithelial 0-10 Normal (applies [facility] (St Cells (non to non-numeric Dony's renal) results) Medical, PC) Cast Type Hyaline Normal (applies [facility] (St casts to non-numeric Dony's results) Medical, PC) Casts [#/area] Present Abnormal (applies [facility] (St in Urine to non-numeric Dony's sediment by results) Medical, PC) Automated count Mucus Threads Present Normal (applies [facility] (St to non-numeric Dony's results) Medical, PC) Bacteria Few Normal (applies [facility] (St [Presence] in to non-numeric Dony's Prostatic results) Medical, PC) fluid by Light microscopy ID Date Data Source [id number] 01/19/2018 12:00:00 AM EDT [facility] ([facility], ) Name Value Range Interpretation Code Description Data Kimberly rce(s) Supporting Document(s ) . Normal (applies to [facility] (St non-numeric results) Dony's Nd dicmi, ) Dear Normal (applies to [facility] (St Doctor, non-numeric results) [facility]'s Nd dical, ) ID Date Data Source [id number] 01/19/2018 12:00:00 AM EDT [facility] ([facility], ) Name Value Range Interpretation Description Data Sup porting Code Source(s) Document(s ) Specific gravity 1.021 Normal (applies [facility] (St of Pericardial to non-numeric Dony's fluid by results) Medical, Refractometry PC) pH of Lower 5.0 Normal (applies [facility] (St respiratory to non-numeric Dony's specimen results) Medical, PC) Urine-Color Yellow Normal (applies [facility] (St to non-numeric Dony's results) Medical, PC) Appearance of Clear Normal (applies [facility] (St Abdomen to non-numeric Dony's results) Medical, PC) Protein Abnormal [facility] (St [Mass/volume] in (applies to Dony's Lower non-numeric Medical, respiratory results) PC) specimen WBC Esterase Negative Normal (applies [facility] (St to non-numeric Dony's results) Medical, PC) Glucose Abnormal [facility] (St [Mass/volume] in (applies to Dony's Urine collected non-numeric Medical, for unspecified results) PC) duration Ketones Negative Normal (applies [facility] (St [Presence] in to non-numeric Dony's Blood by Tablet results) Medical, ) Occult Blood Negative Normal (applies [facility] (St to non-numeric Dony's results) Medical, ) Urobilinogen,Nani 0.2 EU/dL Normal (applies [facility] (St i-Qn to non-numeric Dony's results) Medical, ) Bilirubin Negative Normal (applies [facility] (St [Presence] in to non-numeric Dony's Peritoneal fluid results) Medical, ) Nitrite, Urine Negative Normal (applies [facility] (S t to non-numeric Dony's results) Medical, ) Microscopic See below: Normal (applies [facility] (St Examination to non-numeric Dony's results) Medical, ) ID Date Data Source [id number] 01/19/2018 12:00:00 AM EDT [facility] ([facility], ) Name Value Range Interpretation Code Description Data Supporting Source(s) Document(s ) Sodium, 81 mmol/L Normal (applies to [facility] (St Urine non-numeric Dony's results) Medical, ) ID Date Data Source [id number] 01/19/2018 12:00:00 AM EDT [facility] ([facility], ) Name Value Range Interpretation Description Data Sup porting Code Source(s) Document(s ) Vitamin B12 607 pg/mL Normal (applies to [facility] (S t non-numeric Dony's results) Medical, ) Folate 13.0 Normal (applies to [facility] (St (Folic ng/mL non-numeric Dony's Acid), Serum results) Medical, ) ID Date Data Source [id number] 01/19/2018 12:00:00 AM EDT [facility] ([facility], ) Name Value Range Interpretation Description Data Sup porting Code Source(s) Document(s ) Glucose 238 mg/dL Above high normal [facility] (St [Mass/volume] Dony's in Urine Medical, ) collected for unspecified duration Urea nitrogen 21 mg/dL Normal (applies [facility] (St [Mass/volume] to non-numeric Dony's in Serum or results) Medical, ) Plasma Creatinine 1.13 Normal (applies [facility] (St [Interpretation mg/dL to non-numeric Dony's ] in Urine results) Medical, ) eGFR If 74 Normal (applies [facility] (St NonAfricn Am mL/min/1. to non-numeric Dony's 73 results) Medical, ) eGFR If Africn 85 Normal (applies MED[facility] (S t Am mL/min/1. to non-numeric Dony's 73 results) Medical, ) BUN/Creatinine 19 Normal (applies [facility] (S t Ratio to non-numeric Dony's results) Medical, ) Sodium 140 Normal (applies [facility] (St [Moles/volume] mmol/L to non-numeric Dony's in Serum or results) Medical, ) Plasma Potassium 4.5 Normal (applies [facility] (St [Mass/volume] mmol/L to non-numeric Dony's in Blood results) Medical, ) Chloride 103 Normal (applies [facility] (St [Moles/volume] mmol/L to non-numeric Dony's in Serum or results) Medical, ) Plasma Carbon dioxide, 19 mmol/L Below low normal [facility] (St total Dony's [Moles/volume] Medical, ) in Serum or Plasma Calcium 9.8 mg/dL Normal (applies [facility] (St [Moles/volume] to non-numeric Dony's in Urine results) Medical, ) collected for unspecified duration ID Date Data Source [id number] 01/19/2018 12:00:00 AM EDT [facility] ([facility], ) Name Value Range Interpretation Description Data Sup porting Code Source(s) Document(s ) Ketones Negative Normal (applies [facility] (St [Presence] in to non-numeric Dony's Blood by results) Medical, ) Tablet Occult Blood Negative Normal (applies [facility] (St to non-numeric Dony's results) Medical, ) Bilirubin Negative Normal (applies [facility] (St [Presence] in to non-numeric Dony's Peritoneal results) Medical, ) fluid Nitrite, Urine Negative Normal (applies MEDGEN (S t to non-numeric [facility] results) Medical, ) Urobilinogen,S 0.2 mg/dL Normal (applies MEDGEN (S t mere-Qn to non-numeric [facility] results) Medical, ) Microscopic See below: Normal (applies [facility] (St Examination to non-numeric [facility] results) Medical, ) WBC 0-5 Normal (applies [facility] (St to non-numeric [facility] results) Medical, PC) RBC 0-2 Normal (applies [facility] (St to non-numeric [facility] results) Medical, PC) Epithelial 0-10 Normal (applies MEDGEN (St Cells (non to non-numeric [facility]'s renal) results) Medical, PC) Casts [#/area] Present Abnormal (applies MED[facility] (St in Urine to non-numeric [facility]'s sediment by results) Medical, PC) Automated count Cast Type Hyaline Normal (applies [facility] (St casts to non-numeric [facility] results) Medical, PC) Mucus Threads Present Normal (applies [facility] (St to non-numeric [facility] results) Medical, PC) Bacteria Few Normal (applies MEDGEN (St [Presence] in to non-numeric [facility]'s Prostatic results) Medical, PC) fluid by Light microscopy ID Date Data Source [id number] 01/19/2018 12:00:00 AM EDT [facility] ([facility], ) Name Value Range Interpretation Code Description Data Kimberly rce(s) Supporting Document(s ) Dear Normal (applies to MED[facility] (St Doctor, non-numeric results) [facility], ) . Normal (applies to [facility] (St non-numeric results) [facility], ) ID Date Data Source [id number] 01/19/2018 12:00:00 AM EDT [facility] ([facility], ) Name Value Range Interpretation Description Data Sup porting Code Source(s) Document(s ) Specific gravity 1.021 Normal (applies MED[facility] (St of Pericardial to non-numeric Dony's fluid by results) Medical, Refractometry PC) pH of Lower 5.0 Normal (applies MEDGEN (St respiratory to non-numeric [facility] specimen results) Medical, PC) Urine-Color Yellow Normal (applies MED[facility] (St to non-numeric [facility] results) Medical, PC) Appearance of Clear Normal (applies [facility]GEN (St Abdomen to non-numeric [facility] results) Medical, PC) WBC Esterase Negative Normal (applies [facility] (St to non-numeric [facility] results) Medical, PC) Glucose Abnormal MEDGEN (St [Mass/volume] in (applies to [facility] Urine collected non-numeric Medical, for unspecified results) PC) duration Protein Abnormal [facility] (St [Mass/volume] in (applies to [facility] Lower non-numeric Medical, respiratory results) ) specimen Ketones Negative Normal (applies [facility] (St [Presence] in to non-numeric [facility] Blood by Tablet results) [facility], ) Occult Blood Negative Normal (applies [facility] (St to non-numeric [facility] results) Medical, ) Bilirubin Negative Normal (applies [facility] (St [Presence] in to non-numeric [facility] Peritoneal fluid results) [facility], ) Urobilinogen,Nani 0.2 EU/dL Normal (applies [facility]GEN (St i-Qn to non-numeric [facility] results) Medical, ) Nitrite, Urine Negative Normal (applies [facility]GEN (S t to non-numeric [facility] results) [facility], ) Microscopic See below: Normal (applies MEDGEN (St Examination to non-numeric [facility]'s results) [facility], ) ID Date Data Source [id number] 01/19/2018 12:00:00 AM EDT [facility] ([facility], ) Name Value Range Interpretation Code Description Data Supporting Source(s) Document(s ) Creatinine 165.0 Normal (applies to [facility]GEN (St , Urine mg/dL non-numeric [facility] results) [facility], ) ID Date Data Source [id number] 01/19/2018 12:00:00 AM EDT [facility] ([facility], ) Name Value Range Interpretation Code Description Data Supporting Source(s) Document(s ) Sodium, 81 mmol/L Normal (applies to MEDGEN (St Urine non-numeric [facility] results) [facility], ) ID Date Data Source [id number] 01/19/2018 12:00:00 AM EDT [facility] ([facility], ) Name Value Range Interpretation Description Data Sup porting Code Source(s) Document(s ) Vitamin B12 607 pg/mL Normal (applies to [facility]GEN (S t non-numeric [facility]'s results) [facility], ) Folate 13.0 Normal (applies to [facility] (St (Folic ng/mL non-numeric [facility] Acid), Serum results) [facility], ) ID Date Data Source [id number] 01/19/2018 12:00:00 AM EDT [facility], [facility] Name Value Range Interpretation Description Data Sup porting Code Source(s) Document(s ) Glucose 238 mg/dL Above high normal [facility] (St [Mass/volume] [facility] in Urine Medical, ) collected for unspecified duration Urea nitrogen 21 mg/dL Normal (applies [facility] (St [Mass/volume] to non-numeric [facility] in Serum or results) Medical, ) Plasma Creatinine 1.13 Normal (applies [facility] (St [Interpretation mg/dL to non-numeric [facility]ony's ] in Urine results) Medical, ) eGFR If 74 Normal (applies MEDGEN (St NonAfricn Am mL/min/1. to non-numeric [facility]'s 73 results) Medical, ) eGFR If Africn 85 Normal (applies [facility]GEN (S t Am mL/min/1. to non-numeric [facility]'s 73 results) Medical, ) BUN/Creatinine 19 Normal (applies [facility]GEN (S t Ratio to non-numeric [facility]'s results) [facility], ) Sodium 140 Normal (applies [facility] (St [Moles/volume] mmol/L to non-numeric [facility] in Serum or results) Medical, ) Plasma Potassium 4.5 Normal (applies [facility] (St [Mass/volume] mmol/L to non-numeric [facility] in Blood results) [facility], ) Chloride 103 Normal (applies [facility] (St [Moles/volume] mmol/L to non-numeric [facility] in Serum or results) [facility], ) Plasma Carbon dioxide, 19 mmol/L Below low normal MED[facility] (St total [facility]ony's [Moles/volume] [facility], ) in Serum or Plasma Calcium 9.8 mg/dL Normal (applies [facility] (St [Moles/volume] to non-numeric [facility] in Urine results) [facility], ) collected for unspecified duration ID Date Data Source [id number] 01/19/2018 12:00:00 AM EDT [facility] ([facility], ) Name Value Range Interpretation Description Data Sup porting Code Source(s) Document(s ) WBC 0-5 Normal (applies [facility] (St to non-numeric [facility] results) Medical, ) RBC 0-2 Normal (applies [facility] (St to non-numeric [facility] results) Medical, ) Casts [#/area] Present Abnormal (applies [facility] (St in Urine to non-numeric [facility] sediment by results) Medical, ) Automated count Epithelial 0-10 Normal (applies [facility] (St Cells (non to non-numeric [facility] renal) results) Medical, PC) Cast Type Hyaline Normal (applies [facility] (St casts to non-numeric [facility] results) Medical, PC) Mucus Threads Present Normal (applies [facility] (St to non-numeric [facility] results) Medical, PC) Bacteria Few Normal (applies [facility] (St [Presence] in to non-numeric [facility] Prostatic results) Medical, PC) fluid by Light microscopy ID Date Data Source [id number] 01/19/2018 12:00:00 AM EDT [facility] ([facility]) Name Value Range Interpretation Code Description Data Kimberly rce(s) Supporting Document(s ) . Normal (applies to [facility] (St non-numeric results) [facility] N[facility], PC) Dear Normal (applies to [facility] (St Doctor, non-numeric results) [facility] N[facility], PC) ID Date Data Source [id number] 01/19/2018 12:00:00 AM EDT [facility] ([facility], ) Name Value Range Interpretation Description Data Sup porting Code Source(s) Document(s ) Specific gravity 1.021 Normal (applies [facility] (St of Pericardial to non-numeric [facility] fluid by results) Medical, Refractometry PC) Urine-Color Yellow Normal (applies [facility] (St to non-numeric [facility] results) Medical, PC) pH of Lower 5.0 Normal (applies [facility] (St respiratory to non-numeric [facility] specimen results) Medical, PC) Appearance of Clear Normal (applies [facility] (St Abdomen to non-numeric [facility] results) Medical, PC) WBC Esterase Negative Normal (applies [facility] (St to non-numeric [facility] results) Medical, PC) Protein Abnormal [facility] (St [Mass/volume] in (applies to [facility] Lower non-numeric Medical, respiratory results) PC) specimen Glucose Abnormal [facility] (St [Mass/volume] in (applies to [facility] Urine collected non-numeric Medical, for unspecified results) PC) duration Ketones Negative Normal (applies [facility] (St [Presence] in to non-numeric [facility] Blood by Tablet results) Medical, PC) Occult Blood Negative Normal (applies [facility] (St to non-numeric [facility] results) Medical, PC) Urobilinogen,Nani 0.2 EU/dL Normal (applies [facility]GEN (St i-Qn to non-numeric [facility] results) Medical, ) Bilirubin Negative Normal (applies [facility] (St [Presence] in to non-numeric [facility] Peritoneal fluid results) Medical, ) Nitrite, Urine Negative Normal (applies [facility]GEN (S t to non-numeric [facility] results) Medical, ) Microscopic See below: Normal (applies [facility]GEN (St Examination to non-numeric [facility] results) Medical, ) ID Date Data Source [id number] 01/19/2018 12:00:00 AM EDT [facility] ([facility], ) Name Value Range Interpretation Code Description Data Supporting Source(s) Document(s ) Sodium, 81 mmol/L Normal (applies to [facility] (St Urine non-numeric [facility] results) Medical, ) ID Date Data Source [id number] 01/19/2018 12:00:00 AM EDT [facility] ([facility], ) Name Value Range Interpretation Description Data Sup porting Code Source(s) Document(s ) Vitamin B12 607 pg/mL Normal (applies to [facility]GEN (S t non-numeric [facility] results) Medical, ) Folate 13.0 Normal (applies to [facility] (St (Folic ng/mL non-numeric [facility] Acid), Serum results) Medical, ) ID Date Data Source [id number] 01/19/2018 12:00:00 AM EDT [facility] ([facility], ) Name Value Range Interpretation Description Data Sup porting Code Source(s) Document(s ) WBC 0-5 Normal (applies MEDGEN (St to non-numeric [facility] results) Medical, ) RBC 0-2 Normal (applies [facility] (St to non-numeric [facility] results) Medical, ) Epithelial 0-10 Normal (applies [facility] (St Cells (non to non-numeric [facility]'s renal) results) Medical, ) Casts [#/area] Present Abnormal (applies MEDGEN (St in Urine to non-numeric [facility]'s sediment by results) Medical, ) Automated count Mucus Threads Present Normal (applies [facility]GEN (St to non-numeric [facility]'s results) Medical, ) Cast Type Hyaline Normal (applies [facility]GEN (St casts to non-numeric [facility] results) Medical, PC) Bacteria Few Normal (applies [facility] (St [Presence] in to non-numeric [facility] Prostatic results) Medical, PC) fluid by Light microscopy ID Date Data Source [id number] 01/19/2018 12:00:00 AM EDT [facility] ([facility]) Name Value Range Interpretation Code Description Data Kimberly rce(s) Supporting Document(s ) Dear Normal (applies to MED[facility] (St Doctor, non-numeric results) [facility], PC) . Normal (applies to [facility]GEN (St non-numeric results) [facility] N[facility], PC) ID Date Data Source [id number] 01/19/2018 12:00:00 AM EDT [facility] ([facility], ) Name Value Range Interpretation Description Data Sup porting Code Source(s) Document(s ) Specific gravity 1.021 Normal (applies [facility] (St of Pericardial to non-numeric [facility]'s fluid by results) Medical, Refractometry PC) pH of Lower 5.0 Normal (applies MEDGEN (St respiratory to non-numeric [facility] specimen results) Medical, PC) Urine-Color Yellow Normal (applies MEDGEN (St to non-numeric [facility] results) Medical, PC) Appearance of Clear Normal (applies [facility]GEN (St Abdomen to non-numeric [facility]'s results) Medical, PC) WBC Esterase Negative Normal (applies [facility]GEN (St to non-numeric [facility]'s results) Medical, PC) Protein Abnormal MEDGEN (St [Mass/volume] in (applies to [facility] Lower non-numeric Medical, respiratory results) PC) specimen Glucose Abnormal [facility]GEN (St [Mass/volume] in (applies to [facility] Urine collected non-numeric Medical, for unspecified results) PC) duration Occult Blood Negative Normal (applies [facility]GEN (St to non-numeric [facility]'s results) Medical, PC) Ketones Negative Normal (applies [facility] (St [Presence] in to non-numeric [facility] Blood by Tablet results) Medical, PC) Bilirubin Negative Normal (applies [facility] (St [Presence] in to non-numeric [facility] Peritoneal fluid results) Medical, PC) Urobilinogen,Nani 0.2 EU/dL Normal (applies [facility]GEN (St i-Qn to non-numeric [facility]'s results) Medical, PC) Nitrite, Urine Negative Normal (applies MEDGEN (S t to non-numeric [facility]'s results) Medical, ) Microscopic See below: Normal (applies MED[facility] (St Examination to non-numeric [facility]'s results) Medical, ) ID Date Data Source [id number] 01/19/2018 12:00:00 AM EDT [facility], ) Name Value Range Interpretation Code Description Data Supporting Source(s) Document(s ) Creatinine 165.0 Normal (applies to [facility]GEN (St , Urine mg/dL non-numeric [facility]'s results) Medical, ) ID Date Data Source [id number] 01/19/2018 12:00:00 AM EDT [facility] ([facility], ) Name Value Range Interpretation Code Description Data Supporting Source(s) Document(s ) Sodium, 81 mmol/L Normal (applies to [facility] (St Urine non-numeric [facility]'s results) Medical, ) ID Date Data Source [id number] 01/19/2018 12:00:00 AM EDT [facility] ([facility], ) Name Value Range Interpretation Description Data Sup porting Code Source(s) Document(s ) Vitamin B12 607 pg/mL Normal (applies to MEDGEN (S t non-numeric [facility]'s results) Medical, ) Folate 13.0 Normal (applies to [facility]GEN (St (Folic ng/mL non-numeric [facility] Acid), Serum results) Medical, ) ID Date Data Source [id number] 01/19/2018 12:00:00 AM EDT [facility], ) Name Value Range Interpretation Description Data Sup porting Code Source(s) Document(s ) WBC 0-5 Normal (applies MEDGEN (St to non-numeric [facility]'s results) Medical, ) RBC 0-2 Normal (applies MEDGEN (St to non-numeric [facility]'s results) Medical, ) Epithelial 0-10 Normal (applies MEDGEN (St Cells (non to non-numeric [facility]'s renal) results) Medical, ) Cast Type Hyaline Normal (applies MEDGEN (St casts to non-numeric [facility]'s results) Medical, ) Casts [#/area] Present Abnormal (applies MED[facility] (St in Urine to non-numeric [facility]'s sediment by results) Medical, PC) Automated count Mucus Threads Present Normal (applies [facility] (St to non-numeric [facility] results) Medical, PC) Bacteria Few Normal (applies [facility]GEN (St [Presence] in to non-numeric [facility] Prostatic results) Medical, PC) fluid by Light microscopy ID Date Data Source [id number] 01/19/2018 12:00:00 AM EDT [facility] ([facility], ) Name Value Range Interpretation Code Description Data Kimberly rce(s) Supporting Document(s ) ID Date Data Source [id number] 01/19/2018 12:00:00 AM EDT [facility] ([facility], ) Name Value Range Interpretation Description Data Sup porting Code Source(s) Document(s ) pH of Lower 5.0 Normal (applies [facility] (St respiratory to non-numeric [facility] specimen results) Medical, PC) Specific gravity 1.021 Normal (applies [facility] (St of Pericardial to non-numeric [facility] fluid by results) Medical, Refractometry PC) Urine-Color Yellow Normal (applies MEDGEN (St to non-numeric [facility] results) Medical, PC) Appearance of Clear Normal (applies [facility]GEN (St Abdomen to non-numeric [facility]'s results) Medical, PC) WBC Esterase Negative Normal (applies [facility]GEN (St to non-numeric [facility] results) Medical, PC) Protein Abnormal [facility]GEN (St [Mass/volume] in (applies to [facility] Lower non-numeric Medical, respiratory results) PC) specimen Glucose Abnormal [facility]GEN (St [Mass/volume] in (applies to [facility] Urine collected non-numeric Medical, for unspecified results) PC) duration Ketones Negative Normal (applies [facility]GEN (St [Presence] in to non-numeric [facility] Blood by Tablet results) Medical, PC) Occult Blood Negative Normal (applies MEDGEN (St to non-numeric [facility]'s results) Medical, PC) Bilirubin Negative Normal (applies [facility]GEN (St [Presence] in to non-numeric [facility] Peritoneal fluid results) Medical, PC) Nitrite, Urine Negative Normal (applies MEDGEN (S t to non-numeric [facility]'s results) Medical, PC) Urobilinogen,Nani 0.2 EU/dL Normal (applies [facility] (St i-Qn to non-numeric [facility]'s results) Medical, PC) Microscopic See below: Normal (applies [facility]GEN (St Examination to non-numeric [facility]'s results) Medical, ) ID Date Data Source [id number] 01/19/2018 12:00:00 AM EDT [facility] ([facility], ) Name Value Range Interpretation Code Description Data Supporting Source(s) Document(s ) Creatinine 165.0 Normal (applies to MEDGEN (St , Urine mg/dL non-numeric [facility] results) Medical, ) ID Date Data Source [id number] 01/19/2018 12:00:00 AM EDT [facility] ([facility], ) Name Value Range Interpretation Code Description Data Supporting Source(s) Document(s ) Sodium, 81 mmol/L Normal (applies to [facility] (St Urine non-numeric [facility] results) Medical, ) ID Date Data Source [id number] 01/19/2018 12:00:00 AM EDT [facility] ([facility], ) Name Value Range Interpretation Description Data Sup porting Code Source(s) Document(s ) Vitamin B12 607 pg/mL Normal (applies to MEDGEN (S t non-numeric [facility]'s results) Medical, ) Folate 13.0 Normal (applies to [facility] (St (Folic ng/mL non-numeric [facility] Acid), Serum results) Medical, ) ID Date Data Source [id number] 01/19/2018 12:00:00 AM EDT [facility] ([facility], ) Name Value Range Interpretation Description Data Sup porting Code Source(s) Document(s ) Urea nitrogen 21 mg/dL Normal (applies [facility] (St [Mass/volume] to non-numeric [facility] in Serum or results) Medical, ) Plasma Glucose 238 mg/dL Above high normal [facility] (St [Mass/volume] [facility] in Urine Medical, ) collected for unspecified duration Creatinine 1.13 Normal (applies [facility] (St [Interpretation mg/dL to non-numeric Dony's ] in Urine results) Medical, ) eGFR If Africn 85 Normal (applies MEDGEN (S t Am mL/min/1. to non-numeric [facility]'s 73 results) Medical, ) eGFR If 74 Normal (applies [facility] (St NonAfricn Am mL/min/1. to non-numeric [facility] 73 results) Medical, ) BUN/Creatinine 19 Normal (applies [facility] (S t Ratio to non-numeric [facility]'s results) Medical, ) Sodium 140 Normal (applies [facility] (St [Moles/volume] mmol/L to non-numeric [facility] in Serum or results) Medical, ) Plasma Potassium 4.5 Normal (applies [facility] (St [Mass/volume] mmol/L to non-numeric Dony's in Blood results) Medical, ) Chloride 103 Normal (applies [facility] (St [Moles/volume] mmol/L to non-numeric [facility]'s in Serum or results) Medical, ) Plasma Carbon dioxide, 19 mmol/L Below low normal [facility] (St total [facility]ony's [Moles/volume] Medical, ) in Serum or Plasma Calcium 9.8 mg/dL Normal (applies [facility] (St [Moles/volume] to non-numeric [facility] in Urine results) Medical, ) collected for unspecified duration ID Date Data Source [id number] 01/19/2018 12:00:00 AM EDT [facility] ([facility], ) Name Value Range Interpretation Description Data Sup porting Code Source(s) Document(s ) WBC 0-5 Normal (applies [facility] (St to non-numeric [facility]ony's results) Medical, ) RBC 0-2 Normal (applies [facility] (St to non-numeric [facility] results) Medical, ) Epithelial 0-10 Normal (applies [facility] (St Cells (non to non-numeric [facility]'s renal) results) Medical, ) Casts [#/area] Present Abnormal (applies [facility] (St in Urine to non-numeric [facility]'s sediment by results) Medical, ) Automated count Cast Type Hyaline Normal (applies [facility]GEN (St casts to non-numeric [facility] results) Medical, ) Bacteria Few Normal (applies [facility] (St [Presence] in to non-numeric [facility] Prostatic results) Medical, ) fluid by Light microscopy Mucus Threads Present Normal (applies [facility] (St to non-numeric [facility]'s results) Medical, ) ID Date Data Source [id number] 01/19/2018 12:00:00 AM EDT [facility] ([facility], ) Name Value Range Interpretation Code Description Data Kimberly rce(s) Supporting Document(s ) ID Date Data Source [id number] 01/19/2018 12:00:00 AM EDT [facility] ([facility] [employer], ) Name Value Range Interpretation Description Data Sup porting Code Source(s) Document(s ) Specific gravity 1.021 Normal (applies [facility] (St of Pericardial to non-numeric [facility]'s fluid by results) Medical, Refractometry PC) pH of Lower 5.0 Normal (applies MEDGEN (St respiratory to non-numeric [facility] specimen results) Medical, PC) Urine-Color Yellow Normal (applies [facility] (St to non-numeric [facility]'s results) Medical, PC) Appearance of Clear Normal (applies [facility]GEN (St Abdomen to non-numeric [facility]'s results) Medical, PC) WBC Esterase Negative Normal (applies [facility]GEN (St to non-numeric [facility]'s results) Medical, PC) Protein Abnormal MED[facility] (St [Mass/volume] in (applies to [facility] Lower non-numeric Medical, respiratory results) PC) specimen Glucose Abnormal [facility] (St [Mass/volume] in (applies to [facility] Urine collected non-numeric Medical, for unspecified results) PC) duration Ketones Negative Normal (applies [facility]GEN (St [Presence] in to non-numeric [facility] Blood by Tablet results) Medical, PC) Occult Blood Negative Normal (applies [facility] (St to non-numeric [facility]'s results) Medical, PC) Bilirubin Negative Normal (applies [facility] (St [Presence] in to non-numeric [facility] Peritoneal fluid results) Medical, PC) Urobilinogen,Nani 0.2 EU/dL Normal (applies [facility] (St i-Qn to non-numeric [facility] results) Medical, PC) Nitrite, Urine Negative Normal (applies [facility] (S t to non-numeric [facility]'s results) Medical, PC) Microscopic See below: Normal (applies [facility] (St Examination to non-numeric [facility]'s results) Medical, ) ID Date Data Source [id number] 01/19/2018 12:00:00 AM EDT [facility] ([facility] [employer], ) Name Value Range Interpretation Code Description Data Supporting Source(s) Document(s ) Creatinine 165.0 Normal (applies to [facility]GEN (St , Urine mg/dL non-numeric [facility] results) Medical, ) ID Date Data Source [id number] 01/19/2018 12:00:00 AM EDT [facility] ([facility] [employer], ) Name Value Range Interpretation Code Description Data Supporting Source(s) Document(s ) Sodium, 81 mmol/L Normal (applies to [facility] (St Urine non-numeric Dony's results) [facility], ) ID Date Data Source [id number] 01/19/2018 12:00:00 AM EDT [facility], ) Name Value Range Interpretation Description Data Sup porting Code Source(s) Document(s ) Folate 13.0 Normal (applies to [facility] (St (Folic ng/mL non-numeric [facility] Acid), Serum results) Medical, ) Vitamin B12 607 pg/mL Normal (applies to MEDGEN (S t non-numeric Dony's results) [facility], ) ID Date Data Source [id number] 01/19/2018 12:00:00 AM EDT [facility] ([facility], ) Name Value Range Interpretation Description Data Sup porting Code Source(s) Document(s ) Glucose 229 mg/dL Above high normal [facility] (St [Mass/volume] [facility] in Urine Medical, ) collected for unspecified duration Creatinine 1.04 Normal (applies [facility] (St [Interpretation mg/dL to non-numeric Dony's ] in Urine results) Medical, ) Urea nitrogen 19 mg/dL Normal (applies [facility] (St [Mass/volume] to non-numeric [facility] in Serum or results) Medical, ) Plasma eGFR If Africn 94 Normal (applies [facility] (S t Am mL/min/1. to non-numeric Dony's 73 results) Medical, ) eGFR If 82 Normal (applies [facility] (St NonAfricn Am mL/min/1. to non-numeric Dony's 73 results) Medical, ) BUN/Creatinine 18 Normal (applies [facility] (S t Ratio to non-numeric Dony's results) Medical, ) Sodium 141 Normal (applies [facility] (St [Moles/volume] mmol/L to non-numeric Dony's in Serum or results) Medical, ) Plasma Potassium 4.6 Normal (applies [facility] (St [Mass/volume] mmol/L to non-numeric Dony's in Blood results) Medical, ) Chloride 104 Normal (applies [facility] (St [Moles/volume] mmol/L to non-numeric Dony's in Serum or results) [facility], ) Plasma Carbon dioxide, 24 mmol/L Normal (applies MEDGEN ( St total to non-numeric Dony's [Moles/volume] results) [facility], ) in Serum or Plasma Calcium 9.1 mg/dL Normal (applies [facility] (St [Moles/volume] to non-numeric Dony's in Urine results) [facility], ) collected for unspecified duration Glucose 216 mg/dL Above high normal MED[facility] (St [Mass/volume] Dony's in Urine [facility], ) collected for unspecified duration Creatinine 2.10 Above high normal [facility] (St [Interpretation mg/dL Dony's ] in Urine [facility], ) Urea nitrogen 29 mg/dL Above high normal [facility] ( St [Mass/volume] Dony's in Serum or [facility], ) Plasma eGFR If 35 Below low normal MED[facility] (St NonAfricn Am mL/min/1. Dony's 73 [facility], ) eGFR If Africn 40 Below low normal [facility] ( St Am mL/min/1. Donys 73 [facility], ) Sodium 144 Normal (applies [facility] (St [Moles/volume] mmol/L to non-numeric Dony's in Serum or results) [facility], ) Plasma BUN/Creatinine 14 Normal (applies [facility] (S t Ratio to non-numeric Dony's results) [facility], ) Potassium 3.9 Normal (applies [facility] (St [Mass/volume] mmol/L to non-numeric Dony's in Blood results) [facility], ) Chloride 109 Above high normal [facility] (St [Moles/volume] mmol/L Dony's in Serum or [facility], ) Plasma Calcium 8.7 mg/dL Normal (applies [facility] (St [Moles/volume] to non-numeric Dony's in Urine results) [facility], ) collected for unspecified duration Carbon dioxide, 23 mmol/L Normal (applies [facility] ( St total to non-numeric Dony's [Moles/volume] results) [facility], ) in Serum or Plasma Glucose 129 mg/dL Above high normal [facility] (St [Mass/volume] Dony's in Urine [facility], ) collected for unspecified duration Urea nitrogen 39 mg/dL Above high normal [facility] ( St [Mass/volume] Dony's in Serum or [facility], ) Plasma Creatinine 2.54 Above high normal [facility] (St [Interpretation mg/dL Dony's ] in Urine Medical, ) eGFR If 28 Below low normal [facility] (St NonAfricn Am mL/min/1. Dony's 73 [facility], ) eGFR If Africn 32 Below low normal [facility] ( St Am mL/min/1. Donys 73 [facility], ) Sodium 145 Above high normal [facility] (St [Moles/volume] mmol/L [facility]ony[facility] in Serum or Medical, ) Plasma BUN/Creatinine 15 Normal (applies [facility] (S t Ratio to non-numeric Dony's results) [facility], ) Chloride 111 Above high normal [facility] (St [Moles/volume] mmol/L Dony's in Serum or [facility], ) Plasma Potassium 4.1 Normal (applies [facility] (St [Mass/volume] mmol/L to non-numeric Dony's in Blood results) [facility], ) Carbon dioxide, 20 mmol/L Normal (applies [facility] ( St total to non-numeric Dony's [Moles/volume] results) Medical, ) in Serum or Plasma Calcium 8.2 mg/dL Below low normal [facility] (St [Moles/volume] Dony's in Urine [facility], ) collected for unspecified duration Glucose 321 mg/dL Above high normal [facility] (St [Mass/volume] Dony's in Urine [facility], ) collected for unspecified duration Urea nitrogen 25 mg/dL Above high normal [facility] ( St [Mass/volume] Dony's in Serum or [facility], ) Plasma Creatinine 0.99 Normal (applies [facility] (St [Interpretation mg/dL to non-numeric Dony's ] in Urine results) [facility], ) eGFR If 87 Normal (applies [facility] (St NonAfricn Am mL/min/1. to non-numeric Dony's 73 results) Medical, ) BUN/Creatinine 25 Above high normal [facility] (St Ratio Dony's [facility], ) eGFR If Africn 101 Normal (applies [facility] (S t Am mL/min/1. to non-numeric Dony's 73 results) [facility], ) Potassium 5.6 Above high normal [facility] (St [Mass/volume] mmol/L Dony's in Blood [facility], ) Sodium 138 Normal (applies [facility] (St [Moles/volume] mmol/L to non-numeric Dony's in Serum or results) [facility], ) Plasma Chloride 103 Normal (applies [facility] (St [Moles/volume] mmol/L to non-numeric Dony's in Serum or results) [facility], ) Plasma Carbon dioxide, 21 mmol/L Normal (applies [facility] ( St total to non-numeric Dony's [Moles/volume] results) [facility], ) in Serum or Plasma Calcium 9.8 mg/dL Normal (applies [facility] (St [Moles/volume] to non-numeric Dony's in Urine results) [facility], ) collected for unspecified duration Glucose 154 mg/dL Above high normal [facility] (St [Mass/volume] Dony's in Urine [facility], ) collected for unspecified duration Urea nitrogen 41 mg/dL Above high normal [facility] ( St [Mass/volume] Dony's in Serum or [facility], ) Plasma Creatinine 1.94 Above high normal [facility] (St [Interpretation mg/dL Dony's ] in Urine [facility], ) eGFR If 39 Below low normal [facility] (St NonAfricn Am mL/min/1. Dony's 73 [facility], ) BUN/Creatinine 21 Above high normal [facility] (St Ratio Dony's [facility], ) eGFR If Africn 45 Below low normal [facility] ( St Am mL/min/1. Dony's 73 [facility], ) Sodium 141 Normal (applies [facility] (St [Moles/volume] mmol/L to non-numeric Dony's in Serum or results) [facility], ) Plasma Potassium 5.5 Above high normal [facility] (St [Mass/volume] mmol/L Dony's in Blood [facility], ) Chloride 105 Normal (applies [facility] (St [Moles/volume] mmol/L to non-numeric Dony's in Serum or results) [facility], ) Plasma Carbon dioxide, 21 mmol/L Normal (applies [facility] ( St total to non-numeric Dony's [Moles/volume] results) [facility], ) in Serum or Plasma Calcium 9.3 mg/dL Normal (applies [facility] (St [Moles/volume] to non-numeric Dony's in Urine results) [facility], ) collected for unspecified duration Glucose 88 mg/dL Normal (applies [facility] (St [Mass/volume] to non-numeric Dony's in Urine results) [facility], ) collected for unspecified duration Urea nitrogen 33 mg/dL Above high normal [facility] ( St [Mass/volume] Dony's in Serum or [facility], ) Plasma Creatinine 1.45 Above high normal [facility] (St [Interpretation mg/dL Dony's ] in Urine [facility], ) eGFR If 55 Below low normal [facility] (St NonAfricn Am mL/min/1. Dony's 73 [facility]) BUN/Creatinine 23 Above high normal [facility] (St Ratio Dony's [facility], ) eGFR If Africn 63 Normal (applies [facility] (S t Am mL/min/1. to non-numeric Dony's 73 results) [facility]) Potassium 5.4 Above high normal [facility] (St [Mass/volume] mmol/L Dony's in Blood [facility]) Sodium 143 Normal (applies [facility] (St [Moles/volume] mmol/L to non-numeric Dony's in Serum or results) [facility]) Plasma Carbon dioxide, 20 mmol/L Normal (applies [facility] ( St total to non-numeric Dony's [Moles/volume] results) [facility]) in Serum or Plasma Chloride 106 Normal (applies [facility] (St [Moles/volume] mmol/L to non-numeric Dony's in Serum or results) [facility]) Plasma Calcium 9.4 mg/dL Normal (applies [facility] (St [Moles/volume] to non-numeric Dony's in Urine results) [facility]) collected for unspecified duration Glucose 238 mg/dL Above high normal [facility] (St [Mass/volume] Dony's in Urine [facility]) collected for unspecified duration Urea nitrogen 21 mg/dL Normal (applies [facility] (St [Mass/volume] to non-numeric Dony's in Serum or results) [facility]) Plasma Creatinine 1.13 Normal (applies [facility] (St [Interpretation mg/dL to non-numeric Dony's ] in Urine results) [facility]) eGFR If 74 Normal (applies [facility] (St NonAfricn Am mL/min/1. to non-numeric Dony's 73 results) [facility]) eGFR If Africn 85 Normal (applies [facility] (S t Am mL/min/1. to non-numeric Dony's 73 results) [facility]) BUN/Creatinine 19 Normal (applies [facility] (S t Ratio to non-numeric Dony's results) [facility]) Sodium 140 Normal (applies [facility] (St [Moles/volume] mmol/L to non-numeric Dony's in Serum or results) Medical, ) Plasma Potassium 4.5 Normal (applies [facility] (St [Mass/volume] mmol/L to non-numeric Dony's in Blood results) [facility], ) Chloride 103 Normal (applies [facility] (St [Moles/volume] mmol/L to non-numeric Dony's in Serum or results) Medical, ) Plasma Carbon dioxide, 19 mmol/L Below low normal [facility] (St total Dony's [Moles/volume] [facility], ) in Serum or Plasma Glucose 320 mg/dL Above high normal [facility] (St [Mass/volume] Dony's in Urine [facility], ) collected for unspecified duration Calcium 9.8 mg/dL Normal (applies [facility] (St [Moles/volume] to non-numeric Dony's in Urine results) [facility], ) collected for unspecified duration Creatinine 1.40 Above high normal [facility] (St [Interpretation mg/dL Dony's ] in Urine [facility], ) Urea nitrogen 28 mg/dL Above high normal [facility] ( St [Mass/volume] Dony's in Serum or [facility], ) Plasma eGFR If Africn 65 Normal (applies [facility] (S t Am mL/min/1. to non-numeric Dony's 73 results) [facility], ) eGFR If 57 Below low normal [facility] (St NonAfricn Am mL/min/1. Dony's 73 [facility], ) BUN/Creatinine 20 Normal (applies [facility] (S t Ratio to non-numeric Dony's results) [facility], ) Sodium 141 Normal (applies [facility] (St [Moles/volume] mmol/L to non-numeric Dony's in Serum or results) [facility], ) Plasma Potassium 4.3 Normal (applies [facility] (St [Mass/volume] mmol/L to non-numeric Dony's in Blood results) [facility], ) Carbon dioxide, 22 mmol/L Normal (applies [facility] ( St total to non-numeric Dony's [Moles/volume] results) [facility], ) in Serum or Plasma Chloride 103 Normal (applies [facility] (St [Moles/volume] mmol/L to non-numeric Dony's in Serum or results) [facility], ) Plasma Calcium 8.9 mg/dL Normal (applies [facility] (St [Moles/volume] to non-numeric Dony's in Urine results) Medical, ) collected for unspecified duration ID Date Data Source [id number] 01/19/2018 12:00:00 AM EDT [facility] ([facility], ) Name Value Range Interpretation Description Data Sup porting Code Source(s) Document(s ) WBC 0-5 Normal (applies [facility] (St to non-numeric Dony's results) Medical, ) Epithelial 0-10 Normal (applies [facility] (St Cells (non to non-numeric Dony's renal) results) Medical, ) RBC 0-2 Normal (applies [facility] (St to non-numeric Dony's results) Medical, ) Casts [#/area] Present Abnormal (applies [facility] (St in Urine to non-numeric Dony's sediment by results) Medical, ) Automated count Cast Type Hyaline Normal (applies [facility] (St casts to non-numeric Dony's results) Medical, ) Mucus Threads Present Normal (applies [facility] (St to non-numeric Dony's results) Medical, ) WBC 0-5 Normal (applies [facility] (St to non-numeric Dony's results) Medical, ) Bacteria Few Normal (applies [facility] (St [Presence] in to non-numeric Dony's Prostatic results) Medical, ) fluid by Light microscopy RBC 0-2 Normal (applies [facility] (St to non-numeric Dony's results) Medical, ) Epithelial 0-10 Normal (applies [facility] (St Cells (non to non-numeric Dony's renal) results) Medical, ) Casts [#/area] Present Abnormal (applies [facility] (St in Urine to non-numeric Dony's sediment by results) Medical, ) Automated count Cast Type Hyaline Normal (applies [facility] (St casts to non-numeric Dony's results) Medical, ) Mucus Threads Present Normal (applies [facility] (St to non-numeric Dony's results) Medical, ) Bacteria Few Normal (applies [facility] (St [Presence] in to non-numeric Dony's Prostatic results) Medical, ) fluid by Light microscopy ID Date Data Source [id number] 01/19/2018 12:00:00 AM EDT [facility] ([facility], ) Name Value Range Interpretation Code Description Data Kimberly rce(s) Supporting Document(s ) ID Date Data Source [id number] 01/19/2018 12:00:00 AM EDT [facility] ([facility], ) Name Value Range Interpretation Description Data Sup porting Code Source(s) Document(s ) pH of Lower 5.0 Normal (applies [facility] (St respiratory to non-numeric Dony's specimen results) Medical, ) Specific gravity 1.022 Normal (applies [facility] (St of Pericardial to non-numeric Dony's fluid by results) Medical, Refractometry [facility]) Urine-Color Yellow Normal (applies [facility] (St to non-numeric Dony's results) Medical, PC) Appearance of Clear Normal (applies [facility] (St Abdomen to non-numeric Dony's results) Medical, PC) WBC Esterase Negative Normal (applies [facility] (St to non-numeric Dony's results) Medical, PC) Protein Abnormal [facility] (St [Mass/volume] in (applies to Dony's Lower non-numeric Medical, respiratory results) PC) specimen Ketones Negative Normal (applies [facility] (St [Presence] in to non-numeric Dony's Blood by Tablet results) Medical, PC) Glucose Abnormal [facility] (St [Mass/volume] in (applies to Dony's Urine collected non-numeric Medical, for unspecified results) PC) duration Occult Blood Negative Normal (applies [facility] (St to non-numeric Dony's results) Medical, PC) Bilirubin Negative Normal (applies [facility] (St [Presence] in to non-numeric Dony's Peritoneal fluid results) Medical, ) Urobilinogen,Nani 1.0 mg/dL Normal (applies [facility] (St i-Qn to non-numeric Dony's results) Medical, PC) Nitrite, Urine Negative Normal (applies [facility] (S t to non-numeric Dony's results) Medical, PC) Microscopic See below: Normal (applies [facility] (St Examination to non-numeric Dony's results) Medical, PC) Specific gravity 1.021 Normal (applies [facility] (St of Pericardial to non-numeric Dony's fluid by results) Medical, Refractometry [facility]) pH of Lower 5.0 Normal (applies [facility] (St respiratory to non-numeric Dony's specimen results) Medical, ) Urine-Color Yellow Normal (applies [facility] (St to non-numeric Dony's results) Medical, PC) Appearance of Clear Normal (applies [facility] (St Abdomen to non-numeric Dony's results) Medical, ) WBC Esterase Negative Normal (applies [facility] (St to non-numeric Dony's results) Medical, ) Protein Abnormal [facility] (St [Mass/volume] in (applies to Dony's Lower non-numeric Medical, respiratory results) ) specimen Ketones Negative Normal (applies [facility] (St [Presence] in to non-numeric Dony's Blood by Tablet results) Medical, ) Glucose Abnormal [facility] (St [Mass/volume] in (applies to Dony's Urine collected non-numeric Medical, for unspecified results) ) duration Occult Blood Negative Normal (applies [facility] (St to non-numeric Dony's results) Medical, ) Bilirubin Negative Normal (applies [facility] (St [Presence] in to non-numeric Dony's Peritoneal fluid results) Medical, ) Nitrite, Urine Negative Normal (applies [facility] (S t to non-numeric Dony's results) Medical, ) Urobilinogen,Nani 0.2 EU/dL Normal (applies [facility] (St i-Qn to non-numeric Dony's results) Medical, ) Microscopic See below: Normal (applies [facility] (St Examination to non-numeric Dony's results) Medical, ) ID Date Data Source [id number] 01/19/2018 12:00:00 AM EDT [facility] ([facility], ) Name Value Range Interpretation Code Description Data Supporting Source(s) Document(s ) Creatinine 165.0 Normal (applies to [facility] (St , Urine mg/dL non-numeric Dony's results) Medical, ) ID Date Data Source [id number] 01/19/2018 12:00:00 AM EDT [facility] ([facility], ) Name Value Range Interpretation Description Data Sup porting Code Source(s) Document(s ) Glucose 238 mg/dL Above high normal [facility] (St [Mass/volume] Dony's in Urine Medical, ) collected for unspecified duration Urea nitrogen 21 mg/dL Normal (applies [facility] (St [Mass/volume] to non-numeric Dony's in Serum or results) Medical, ) Plasma Creatinine 1.13 Normal (applies [facility] (St [Interpretation mg/dL to non-numeric Dony's ] in Urine results) Medical, ) eGFR If Africn 85 Normal (applies [facility] (S t Am mL/min/1. to non-numeric Dony's 73 results) Medical, ) eGFR If 74 Normal (applies [facility] (St NonAfricn Am mL/min/1. to non-numeric Dony's 73 results) Medical, ) BUN/Creatinine 19 Normal (applies [facility] (S t Ratio to non-numeric Dony's results) Medical, ) Sodium 140 Normal (applies [facility] (St [Moles/volume] mmol/L to non-numeric Dony's in Serum or results) Medical, ) Plasma Potassium 4.5 Normal (applies [facility] (St [Mass/volume] mmol/L to non-numeric Dony's in Blood results) Medical, ) Chloride 103 Normal (applies [facility] (St [Moles/volume] mmol/L to non-numeric Dony's in Serum or results) Medical, ) Plasma Carbon dioxide, 19 mmol/L Below low normal [facility] (St total Dony's [Moles/volume] Medical, ) in Serum or Plasma Calcium 9.8 mg/dL Normal (applies [facility] (St [Moles/volume] to non-numeric Dony's in Urine results) Medical, ) collected for unspecified duration ID Date Data Source [id number] 01/19/2018 12:00:00 AM EDT [facility] ([facility], ) Name Value Range Interpretation Description Data Sup porting Code Source(s) Document(s ) WBC 0-5 Normal (applies [facility] (St to non-numeric Dony's results) Medical, ) RBC 0-2 Normal (applies [facility] (St to non-numeric Dony's results) Medical, ) Epithelial 0-10 Normal (applies [facility] (St Cells (non to non-numeric Dony's renal) results) Medical, ) Casts [#/area] Present Abnormal (applies [facility] (St in Urine to non-numeric Dony's sediment by results) Medical, ) Automated count Cast Type Hyaline Normal (applies [facility] (St casts to non-numeric Dony's results) Medical, ) Bacteria Few Normal (applies [facility] (St [Presence] in to non-numeric Dony's Prostatic results) Medical, ) fluid by Light microscopy Mucus Threads Present Normal (applies [facility] (St to non-numeric Dony's results) Medical, ) ID Date Data Source [id number] 01/19/2018 12:00:00 AM EDT [facility] ([facility], ) Name Value Range Interpretation Description Data Sup porting Code Source(s) Document(s ) Specific gravity 1.021 Normal (applies [facility] (St of Pericardial to non-numeric Dony's fluid by results) Medical, [facility]) pH of Lower 5.0 Normal (applies [facility] (St respiratory to non-numeric Dony's specimen results) Medical, PC) Urine-Color Yellow Normal (applies [facility] (St to non-numeric Dony's results) Medical, PC) Appearance of Clear Normal (applies [facility] (St Abdomen to non-numeric Dony's results) Medical, PC) WBC Esterase Negative Normal (applies [facility] (St to non-numeric Dony's results) Medical, PC) Protein Abnormal [facility] (St [Mass/volume] in (applies to Dony's Lower non-numeric Medical, respiratory results) PC) specimen Glucose Abnormal [facility] (St [Mass/volume] in (applies to Dony's Urine collected non-numeric Medical, for unspecified results) PC) duration Ketones Negative Normal (applies [facility] (St [Presence] in to non-numeric Dony's Blood by Tablet results) Medical, PC) Occult Blood Negative Normal (applies [facility] (St to non-numeric Dony's results) Medical, PC) Bilirubin Negative Normal (applies [facility] (St [Presence] in to non-numeric Dony's Peritoneal fluid results) Medical, PC) Nitrite, Urine Negative Normal (applies [facility] (S t to non-numeric Dony's results) Medical, PC) Urobilinogen,Nani 0.2 EU/dL Normal (applies [facility] (St i-Qn to non-numeric [facility]ony's results) Medical, PC) Microscopic See below: Normal (applies [facility] (St Examination to non-numeric Dony's results) Medical, ) ID Date Data Source [id number] 01/19/2018 12:00:00 AM EDT [facility] ([facility], ) Name Value Range Interpretation Code Description Data Supporting Source(s) Document(s ) Creatinine 165.0 Normal (applies to [facility] (St , Urine mg/dL non-numeric Dony's results) Medical, ) ID Date Data Source [id number] 01/19/2018 12:00:00 AM EDT [facility] ([facility], ) Name Value Range Interpretation Code Description Data Supporting Source(s) Document(s ) Sodium, 81 mmol/L Normal (applies to [facility] (St Urine non-numeric Dony's results) Medical, ) ID Date Data Source [id number] 01/19/2018 12:00:00 AM EDT [facility] ([facility], ) Name Value Range Interpretation Description Data Sup porting Code Source(s) Document(s ) Vitamin B12 607 pg/mL Normal (applies to [facility] (S t non-numeric [facility]ony's results) Medical, ) Folate 13.0 Normal (applies to [facility] (St (Folic ng/mL non-numeric [facility]'s Acid), Serum results) Medical, ) ID Date Data Source [id number] 01/19/2018 12:00:00 AM EDT [facility] ([facility], ) Name Value Range Interpretation Description Data Sup porting Code Source(s) Document(s ) Urea nitrogen 21 mg/dL Normal (applies [facility] (St [Mass/volume] to non-numeric Dony's in Serum or results) Medical, ) Plasma Glucose 238 mg/dL Above high normal [facility] (St [Mass/volume] Dony's in Urine Medical, ) collected for unspecified duration Creatinine 1.13 Normal (applies [facility] (St [Interpretation mg/dL to non-numeric Dony's ] in Urine results) Medical, ) eGFR If 74 Normal (applies [facility] (St NonAfricn Am mL/min/1. to non-numeric Dony's 73 results) Medical, ) eGFR If Africn 85 Normal (applies [facility] (S t Am mL/min/1. to non-numeric Dony's 73 results) Medical, ) BUN/Creatinine 19 Normal (applies [facility] (S t Ratio to non-numeric [facility] results) Medical, ) Potassium 4.5 Normal (applies [facility] (St [Mass/volume] mmol/L to non-numeric Dony's in Blood results) Medical, ) Sodium 140 Normal (applies [facility] (St [Moles/volume] mmol/L to non-numeric Dony's in Serum or results) Medical, ) Plasma Chloride 103 Normal (applies [facility] (St [Moles/volume] mmol/L to non-numeric [facility] in Serum or results) Medical, ) Plasma Calcium 9.8 mg/dL Normal (applies [facility] (St [Moles/volume] to non-numeric [facility] in Urine results) Medical, ) collected for unspecified duration Carbon dioxide, 19 mmol/L Below low normal [facility] (St total [facility] [Moles/volume] Medical, ) in Serum or Plasma ID Date Data Source [id number] 01/19/2018 12:00:00 AM EDT [facility] ([facility], ) Name Value Range Interpretation Description Data Sup porting Code Source(s) Document(s ) WBC 0-5 Normal (applies [facility] (St to non-numeric [facility] results) Medical, PC) RBC 0-2 Normal (applies [facility] (St to non-numeric [facility] results) Medical, PC) Epithelial 0-10 Normal (applies [facility] (St Cells (non to non-numeric [facility] renal) results) Medical, PC) Cast Type Hyaline Normal (applies [facility] (St casts to non-numeric [facility] results) Medical, PC) Casts [#/area] Present Abnormal (applies [facility] (St in Urine to non-numeric [facility] sediment by results) Medical, PC) Automated count Bacteria Few Normal (applies [facility] (St [Presence] in to non-numeric [facility] Prostatic results) Medical, PC) fluid by Light microscopy Mucus Threads Present Normal (applies [facility] (St to non-numeric [facility] results) Medical, ) ID Date Data Source [id number] 01/19/2018 12:00:00 AM EDT [facility] ([facility], ) Name Value Range Interpretation Code Description Data Kimberly rce(s) Supporting Document(s ) ID Date Data Source [id number] 01/19/2018 12:00:00 AM EDT [facility] ([facility], ) Name Value Range Interpretation Description Data Sup porting Code Source(s) Document(s ) Specific gravity 1.021 Normal (applies [facility] (St of Pericardial to non-numeric [facility] fluid by results) Medical, Refractometry ) pH of Lower 5.0 Normal (applies [facility] (St respiratory to non-numeric [facility] specimen results) Medical, ) Appearance of Clear Normal (applies [facility] (St Abdomen to non-numeric [facility] results) Medical, ) Urine-Color Yellow Normal (applies [facility] (St to non-numeric [facility] results) Medical, ) WBC Esterase Negative Normal (applies [facility] (St to non-numeric [facility] results) Medical, ) Glucose Abnormal [facility] (St [Mass/volume] in (applies to [facility] Urine collected non-numeric Medical, for unspecified results) ) duration Protein Abnormal [facility] (St [Mass/volume] in (applies to [facility] Lower non-numeric Medical, respiratory results) ) specimen Ketones Negative Normal (applies [facility] (St [Presence] in to non-numeric [facility] Blood by Tablet results) [facility], ) Bilirubin Negative Normal (applies [facility] (St [Presence] in to non-numeric [facility] Peritoneal fluid results) [facility], ) Occult Blood Negative Normal (applies [facility] (St to non-numeric [facility] results) [facility], ) Urobilinogen,Nani 0.2 EU/dL Normal (applies [facility] (St i-Qn to non-numeric [facility] results) [facility], ) Nitrite, Urine Negative Normal (applies [facility] (S t to non-numeric [facility]ony's results) [facility], ) Microscopic See below: Normal (applies [facility] (St Examination to non-numeric [facility] results) [facility], ) ID Date Data Source [id number] 12/27/2017 12:00:00 AM EDT [facility] ([facility], ) Name Value Range Interpretation Code Description Data Kimberly rce(s) Supporting Document(s ) ID Date Data Source [id number] 12/27/2017 12:00:00 AM EDT [facility] ([facility], ) Name Value Range Interpretation Description Data Sup porting Code Source(s) Document(s ) No Urine Test not Normal (applies to [facility] (St Received performed non-numeric [facility] . results) [facility], ) ID Date Data Source [id number] 12/27/2017 12:00:00 AM EDT [facility] ([facility], ) Name Value Range Interpretation Code Description Data Supporting Source(s) Document(s ) Albumin, Test not Normal (applies to [facility] (St Urine performed. non-numeric [facility] results) [facility], ) ID Date Data Source [id number] 12/27/2017 12:00:00 AM EDT [facility] ([facility], ) Name Value Range Interpretation Description Data Sup porting Code Source(s) Document(s ) Hemoglobin 9.4 % Above high normal [facility] (St A1c/Hemoglobin. [facility] total in Blood [facility], ) ID Date Data Source [id number] 12/27/2017 12:00:00 AM EDT [facility] ([facility], ) Name Value Range Interpretation Code Description Data Kimberly rce(s) Supporting Document(s ) PDF Image . Normal (applies to [facility] (St non-numeric results) [facility]) ID Date Data Source [id number] 12/27/2017 12:00:00 AM EDT [facility] ( [facility], ) Name Value Range Interpretation Description Data Sup porting Code Source(s) Document(s ) Glucose 154 mg/dL Above high normal [facility] (St [Mass/volume] [facility] in Urine [facility], ) collected for unspecified duration Urea nitrogen 41 mg/dL Above high normal [facility] ( St [Mass/volume] [facility] in Serum or [facility], ) Plasma Creatinine 1.94 Above high normal [facility] (St [Interpretation mg/dL Dony's ] in Urine [facility], ) eGFR If 39 Below low normal [facility] (St NonAfricn Am mL/min/1. [facility], ) eGFR If Africn 45 Below low normal [facility] ( St Am mL/min/1. [facility], ) Sodium 141 Normal (applies [facility] (St [Moles/volume] mmol/L to non-numeric [facility] in Serum or results) [facility], ) Plasma BUN/Creatinine 21 Above high normal [facility] (St Ratio Dony's [facility], ) Potassium 5.5 Above high normal [facility] (St [Mass/volume] mmol/L [facility] in Blood [facility], ) Chloride 105 Normal (applies [facility] (St [Moles/volume] mmol/L to non-numeric [facility] in Serum or results) [facility], ) Plasma Carbon dioxide, 21 mmol/L Normal (applies [facility] ( St total to non-numeric [facility] [Moles/volume] results) Medical, ) in Serum or Plasma Calcium 9.3 mg/dL Normal (applies [facility] (St [Moles/volume] to non-numeric [facility] in Urine results) Medical, ) collected for unspecified duration ID Date Data Source [id number] 12/27/2017 12:00:00 AM EDT [facility] ([facility], ) Name Value Range Interpretation Code Description Data Kimberly rce(s) Supporting Document(s ) ID Date Data Source [id number] 12/27/2017 12:00:00 AM EDT [facility] ([facility], ) Name Value Range Interpretation Description Data Sup porting Code Source(s) Document(s ) No Urine Test not Normal (applies to [facility] (St Received performed non-numeric [facility] . results) Medical, ) ID Date Data Source [id number] 12/27/2017 12:00:00 AM EDT [facility] ([facility], ) Name Value Range Interpretation Code Description Data Supporting Source(s) Document(s ) Albumin, Test not Normal (applies to [facility] (St Urine performed. non-numeric [facility] results) Medical, ) ID Date Data Source [id number] 12/27/2017 12:00:00 AM EDT [facility] ([facility], ) Name Value Range Interpretation Description Data Sup porting Code Source(s) Document(s ) Hemoglobin 9.4 % Above high normal [facility] (St A1c/Hemoglobin. [facility] total in Blood [facility], ) ID Date Data Source [id number] 12/27/2017 12:00:00 AM EDT [facility] ([facility], ) Name Value Range Interpretation Code Description Data Kimberly rce(s) Supporting Document(s ) PDF Image . Normal (applies to [facility] (St non-numeric results) [facility], ) ID Date Data Source [id number] 12/27/2017 12:00:00 AM EDT [facility] ([facility], ) Name Value Range Interpretation Description Data Sup porting Code Source(s) Document(s ) Glucose 154 mg/dL Above high normal [facility] (St [Mass/volume] [facility] in Urine Medical, ) collected for unspecified duration Urea nitrogen 41 mg/dL Above high normal [facility] ( St [Mass/volume] [facility] in Serum or Medical, ) Plasma Creatinine 1.94 Above high normal [facility] (St [Interpretation mg/dL [facility]ony's ] in Urine [facility], ) eGFR If 39 Below low normal [facility] (St NonAfricn Am mL/min/1. [facility] [address] [facility], ) BUN/Creatinine 21 Above high normal [facility] (St Ratio [facility]ony[facility], ) eGFR If Africn 45 Below low normal [facility] ( St Am mL/min/1. [facility]'s 73 [facility], ) Sodium 141 Normal (applies [facility] (St [Moles/volume] mmol/L to non-numeric [facility] in Serum or results) [facility], ) Plasma Potassium 5.5 Above high normal [facility] (St [Mass/volume] mmol/L [facility] in Blood [facility], ) Chloride 105 Normal (applies [facility] (St [Moles/volume] mmol/L to non-numeric [facility] in Serum or results) [facility], ) Plasma Carbon dioxide, 21 mmol/L Normal (applies [facility] ( St total to non-numeric [facility] [Moles/volume] results) [facility], ) in Serum or Plasma Calcium 9.3 mg/dL Normal (applies [facility] (St [Moles/volume] to non-numeric [facility] in Urine results) [facility], ) collected for unspecified duration ID Date Data Source [id number] 12/27/2017 12:00:00 AM EDT [facility] ([facility], ) Name Value Range Interpretation Code Description Data Kimberly rce(s) Supporting Document(s ) ID Date Data Source [id number] 12/27/2017 12:00:00 AM EDT [facility] ([facility], ) Name Value Range Interpretation Description Data Sup porting Code Source(s) Document(s ) No Urine Test not Normal (applies to [facility] (St Received performed non-numeric [facility] . results) [facility], ) ID Date Data Source [id number] 12/27/2017 12:00:00 AM EDT [facility] ([facility], ) Name Value Range Interpretation Code Description Data Supporting Source(s) Document(s ) Albumin, Test not Normal (applies to [facility] (St Urine performed. non-numeric [facility]'s results) [facility], ) ID Date Data Source [id number] 12/27/2017 12:00:00 AM EDT [facility] ([facility], ) Name Value Range Interpretation Description Data Sup porting Code Source(s) Document(s ) Hemoglobin 9.4 % Above high normal [facility] (St A1c/Hemoglobin. [facility] total in Blood [facility], ) ID Date Data Source [id number] 12/27/2017 12:00:00 AM EDT [facility] ([facility], ) Name Value Range Interpretation Code Description Data Kimberly rce(s) Supporting Document(s ) PDF Image . Normal (applies to [facility] (St non-numeric results) [facility], ) ID Date Data Source [id number] 12/27/2017 12:00:00 AM EDT [facility] ([facility], ) Name Value Range Interpretation Description Data Sup porting Code Source(s) Document(s ) Glucose 154 mg/dL Above high normal [facility] (St [Mass/volume] [facility]ony[facility] in Urine [facility], ) collected for unspecified duration Urea nitrogen 41 mg/dL Above high normal [facility] ( St [Mass/volume] [facility] in Serum or Medical, ) Plasma Creatinine 1.94 Above high normal [facility] (St [Interpretation mg/dL Dony's ] in Urine [facility], ) eGFR If Africn 45 Below low normal [facility] ( St Am mL/min/1. [facility], ) eGFR If 39 Below low normal [facility] (St NonAfricn Am mL/min/1. [facility]' [address] [facility], ) BUN/Creatinine 21 Above high normal [facility] (St Ratio [facility]'s [facility], ) Sodium 141 Normal (applies [facility] (St [Moles/volume] mmol/L to non-numeric [facility] in Serum or results) [facility], ) Plasma Potassium 5.5 Above high normal [facility] (St [Mass/volume] mmol/L [facility]ony[facility] in Blood [facility], ) Chloride 105 Normal (applies [facility] (St [Moles/volume] mmol/L to non-numeric [facility] in Serum or results) [facility], ) Plasma Carbon dioxide, 21 mmol/L Normal (applies [facility] ( St total to non-numeric [facility]ony's [Moles/volume] results) [facility], ) in Serum or Plasma Calcium 9.3 mg/dL Normal (applies [facility] (St [Moles/volume] to non-numeric [facility]ony's in Urine results) [facility], ) collected for unspecified duration ID Date Data Source [id number] 12/27/2017 12:00:00 AM EDT [facility] ([facility], ) Name Value Range Interpretation Description Data Sup porting Code Source(s) Document(s ) Hemoglobin 8.5 % Above high normal [facility] (St A1c/Hemoglobin. [facility]ony[facility] total in Blood [facility], ) ID Date Data Source [id number] 12/27/2017 12:00:00 AM EDT [facility] ([facility], ) Name Value Range Interpretation Description Data Sup porting Code Source(s) Document(s ) No Urine Test not Normal (applies to [facility] (St Received performed non-numeric [facility]ony's . results) [facility], ) ID Date Data Source [id number] 12/27/2017 12:00:00 AM EDT [facility] ([facility], ) Name Value Range Interpretation Code Description Data Supporting Source(s) Document(s ) Albumin, Test not Normal (applies to [facility] (St Urine performed. non-numeric Dony's results) [facility], ) ID Date Data Source [id number] 12/27/2017 12:00:00 AM EDT [facility] ([facility], ) Name Value Range Interpretation Description Data Sup porting Code Source(s) Document(s ) Hemoglobin 9.4 % Above high normal [facility] (St A1c/Hemoglobin. [facility]ony[facility] total in Blood [facility], ) ID Date Data Source [id number] 12/27/2017 12:00:00 AM EDT [facility] ([facility], ) Name Value Range Interpretation Code Description Data Kimberly rce(s) Supporting Document(s ) PDF Image . Normal (applies to [facility] (St non-numeric results) [facility], ) ID Date Data Source [id number] 12/27/2017 12:00:00 AM EDT [facility] ([facility], ) Name Value Range Interpretation Description Data Sup porting Code Source(s) Document(s ) Glucose 154 mg/dL Above high normal [facility] (St [Mass/volume] [facility] in Urine Medical, ) collected for unspecified duration Urea nitrogen 41 mg/dL Above high normal [facility] ( St [Mass/volume] [facility] in Serum or Medical, ) Plasma eGFR If 39 Below low normal [facility] (St NonAfricn Am mL/min/1. [address], ) Creatinine 1.94 Above high normal [facility] (St [Interpretation mg/dL Dony's ] in Urine [facility], ) eGFR If Africn 45 Below low normal [facility] ( St Am mL/min/1. [facility]'s 73 [facility], ) BUN/Creatinine 21 Above high normal [facility] (St Ratio Dony's [facility], ) Sodium 141 Normal (applies [facility] (St [Moles/volume] mmol/L to non-numeric [facility] in Serum or results) [facility], ) Plasma Potassium 5.5 Above high normal [facility] (St [Mass/volume] mmol/L [facility]ony[facility] in Blood [facility], ) Chloride 105 Normal (applies [facility] (St [Moles/volume] mmol/L to non-numeric [facility]ony[facility] in Serum or results) [facility], ) Plasma Carbon dioxide, 21 mmol/L Normal (applies [facility] ( St total to non-numeric [facility]'s [Moles/volume] results) [facility], ) in Serum or Plasma Calcium 9.3 mg/dL Normal (applies [facility] (St [Moles/volume] to non-numeric [facility] in Urine results) [facility], ) collected for unspecified duration ID Date Data Source [id number] 12/27/2017 12:00:00 AM EDT [facility] ([facility], ) Name Value Range Interpretation Code Description Data Kimberly rce(s) Supporting Document(s ) ID Date Data Source [id number] 12/27/2017 12:00:00 AM EDT [facility] ([facility], ) Name Value Range Interpretation Description Data Sup porting Code Source(s) Document(s ) No Urine Test not Normal (applies to [facility] (St Received performed non-numeric Dony's . results) [facility], ) ID Date Data Source [id number] 12/27/2017 12:00:00 AM EDT [facility] ([facility], ) Name Value Range Interpretation Code Description Data Supporting Source(s) Document(s ) Albumin, Test not Normal (applies to [facility] (St Urine performed. non-numeric Dony's results) [facility], ) ID Date Data Source [id number] 12/27/2017 12:00:00 AM EDT [facility] ([facility], ) Name Value Range Interpretation Description Data Sup porting Code Source(s) Document(s ) Hemoglobin 9.4 % Above high normal [facility] (St A1c/Hemoglobin. Dony[facility] total in Blood [facility], ) ID Date Data Source [id number] 12/27/2017 12:00:00 AM EDT [facility] ([facility], ) Name Value Range Interpretation Code Description Data Kimberly rce(s) Supporting Document(s ) PDF Image . Normal (applies to [facility] (St non-numeric results) [facility], ) ID Date Data Source [id number] 12/27/2017 12:00:00 AM EDT [facility] ([facility], ) Name Value Range Interpretation Description Data Sup porting Code Source(s) Document(s ) Glucose 154 mg/dL Above high normal [facility] (St [Mass/volume] Dony's in Urine [facility], ) collected for unspecified duration Urea nitrogen 41 mg/dL Above high normal [facility] ( St [Mass/volume] [facility] in Serum or Medical, ) Plasma Creatinine 1.94 Above high normal [facility] (St [Interpretation mg/dL Dony's ] in Urine [facility], ) eGFR If 39 Below low normal [facility] (St NonAfricn Am mL/min/1. [facility] [address] [place] [address], ) eGFR If Africn 45 Below low normal [facility] ( St Am mL/min/1. [facility] [address] [facility], ) BUN/Creatinine 21 Above high normal [facility] (St Ratio [facility]ony[facility], ) Sodium 141 Normal (applies [facility] (St [Moles/volume] mmol/L to non-numeric [facility]ony[facility] in Serum or results) [facility], ) Plasma Potassium 5.5 Above high normal [facility] (St [Mass/volume] mmol/L Dony[facility] in Blood [facility], ) Chloride 105 Normal (applies [facility] (St [Moles/volume] mmol/L to non-numeric [facility] in Serum or results) [facility], ) Plasma Calcium 9.3 mg/dL Normal (applies [facility] (St [Moles/volume] to non-numeric Dony's in Urine results) [facility], ) collected for unspecified duration Carbon dioxide, 21 mmol/L Normal (applies [facility] ( St total to non-numeric [facility]ony's [Moles/volume] results) Medical, ) in Serum or Plasma ID Date Data Source [id number] 12/27/2017 12:00:00 AM EDT [facility] ([facility] Name Value Range Interpretation Code Description Data Kimberly rce(s) Supporting Document(s ) ID Date Data Source [id number] 12/27/2017 12:00:00 AM EDT [facility] ([facility]) Name Value Range Interpretation Description Data Sup porting Code Source(s) Document(s ) No Urine Test not Normal (applies to [facility] (St Received performed non-numeric [facility]ony's . results) Medical, ) ID Date Data Source [id number] 12/27/2017 12:00:00 AM EDT [facility] ([facility], ) Name Value Range Interpretation Code Description Data Supporting Source(s) Document(s ) Albumin, Test not Normal (applies to [facility] (St Urine performed. non-numeric [facility]ony's results) Medical, ) ID Date Data Source [id number] 12/27/2017 12:00:00 AM EDT [facility] ([facility], ) Name Value Range Interpretation Description Data Sup porting Code Source(s) Document(s ) Hemoglobin 9.4 % Above high normal [facility] (St A1c/Hemoglobin. [facility] total in Blood Medical, ) ID Date Data Source [id number] 12/27/2017 12:00:00 AM EDT [facility] ([facility], ) Name Value Range Interpretation Code Description Data Kimberly rce(s) Supporting Document(s ) PDF Image . Normal (applies to [facility] (St non-numeric results) [facility], ) ID Date Data Source [id number] 12/27/2017 12:00:00 AM EDT [facility] ([facility], ) Name Value Range Interpretation Description Data Sup porting Code Source(s) Document(s ) Glucose 154 mg/dL Above high normal [facility] (St [Mass/volume] [facility] in Urine Medical, ) collected for unspecified duration Urea nitrogen 41 mg/dL Above high normal [facility] ( St [Mass/volume] [facility]ony[facility] in Serum or Medical, ) Plasma Creatinine 1.94 Above high normal [facility] (St [Interpretation mg/dL Dony's ] in Urine [facility], ) eGFR If 39 Below low normal [facility] (St NonAfricn Am mL/min/1. [facility]'s [address] [place] [address], ) BUN/Creatinine 21 Above high normal [facility] (St Ratio Dony's [facility], ) eGFR If Africn 45 Below low normal [facility] ( St Am mL/min/1. [facility]ony[facility] 73 [facility], ) Sodium 141 Normal (applies [facility] (St [Moles/volume] mmol/L to non-numeric Dony's in Serum or results) [facility], ) Plasma Potassium 5.5 Above high normal [facility] (St [Mass/volume] mmol/L Dony[facility] in Blood [facility], ) Carbon dioxide, 21 mmol/L Normal (applies [facility] ( St total to non-numeric Dony's [Moles/volume] results) [facility], ) in Serum or Plasma Chloride 105 Normal (applies MEDGEN (St [Moles/volume] mmol/L to non-numeric Dony's in Serum or results) [facility], ) Plasma Calcium 9.3 mg/dL Normal (applies [facility] (St [Moles/volume] to non-numeric Dony's in Urine results) [facility], ) collected for unspecified duration ID Date Data Source [id number] 12/27/2017 12:00:00 AM EDT [facility] ([facility], ) Name Value Range Interpretation Code Description Data Kimberly rce(s) Supporting Document(s ) ID Date Data Source [id number] 12/27/2017 12:00:00 AM EDT [facility] ([facility], ) Name Value Range Interpretation Description Data Sup porting Code Source(s) Document(s ) No Urine Test not Normal (applies to MEDGEN (St Received performed non-numeric Dony's . results) [facility], ) ID Date Data Source [id number] 12/27/2017 12:00:00 AM EDT [facility] ([facility], ) Name Value Range Interpretation Code Description Data Supporting Source(s) Document(s ) Albumin, Test not Normal (applies to MED[facility] (St Urine performed. non-numeric Dony's results) [facility], ) ID Date Data Source [id number] 12/27/2017 12:00:00 AM EDT [facility] (St [facility], ) Name Value Range Interpretation Description Data Sup porting Code Source(s) Document(s ) Hemoglobin 9.4 % Above high normal MED[facility] (St A1c/Hemoglobin. Dony's total in Blood [facility], ) ID Date Data Source [id number] 12/27/2017 12:00:00 AM EDT [facility] (St [facility], ) Name Value Range Interpretation Code Description Data Kimberly rce(s) Supporting Document(s ) PDF Image . Normal (applies to MEDGEN (St non-numeric results) [facility], ) ID Date Data Source [id number] 12/27/2017 12:00:00 AM EDT MED[facility] ([facility], ) Name Value Range Interpretation Description Data Sup porting Code Source(s) Document(s ) Urea nitrogen 41 mg/dL Above high normal MEDGEN ( St [Mass/volume] Dony's in Serum or Medical, ) Plasma Glucose 154 mg/dL Above high normal [facility] (St [Mass/volume] Dony's in Urine [facility], ) collected for unspecified duration Creatinine 1.94 Above high normal [facility] (St [Interpretation mg/dL Dony's ] in Urine [facility], ) eGFR If 39 Below low normal MEDGEN (St NonAfricn Am mL/min/1. [address], ) eGFR If Africn 45 Below low normal MEDGEN ( St Am mL/min/1. [address], ) BUN/Creatinine 21 Above high normal MEDGEN (St Ratio [facility], ) Sodium 141 Normal (applies [facility] (St [Moles/volume] mmol/L to non-numeric Dony's in Serum or results) [facility], ) Plasma Potassium 5.5 Above high normal [facility] (St [Mass/volume] mmol/L Dony's in Blood [facility], ) Chloride 105 Normal (applies [facility]GEN (St [Moles/volume] mmol/L to non-numeric Dony's in Serum or results) [facility], ) Plasma Carbon dioxide, 21 mmol/L Normal (applies MEDGEN ( St total to non-numeric Dony's [Moles/volume] results) [facility], ) in Serum or Plasma Calcium 9.3 mg/dL Normal (applies [facility] (St [Moles/volume] to non-numeric Dony's in Urine results) Medical, ) collected for unspecified duration ID Date Data Source [id number] 12/27/2017 12:00:00 AM EDT [facility] ([facility], ) Name Value Range Interpretation Code Description Data Kimberly rce(s) Supporting Document(s ) ID Date Data Source [id number] 12/27/2017 12:00:00 AM EDT [facility] ([facility], ) Name Value Range Interpretation Description Data Sup porting Code Source(s) Document(s ) No Urine Test not Normal (applies to [facility] (St Received performed non-numeric Dony's . results) [facility], ) ID Date Data Source [id number] 12/27/2017 12:00:00 AM EDT [facility] ([facility], ) Name Value Range Interpretation Code Description Data Supporting Source(s) Document(s ) Albumin, Test not Normal (applies to [facility] (St Urine performed. non-numeric Dony's results) Medical, ) ID Date Data Source [id number] 12/27/2017 12:00:00 AM EDT [facility] ([facility], ) Name Value Range Interpretation Description Data Sup porting Code Source(s) Document(s ) Hemoglobin 9.4 % Above high normal [facility] (St A1c/Hemoglobin. Dony[facility] total in Blood [facility], ) ID Date Data Source [id number] 12/27/2017 12:00:00 AM EDT [facility] ([facility], ) Name Value Range Interpretation Code Description Data Kimberly rce(s) Supporting Document(s ) PDF Image . Normal (applies to [facility] (St non-numeric results) [facility], ) ID Date Data Source [id number] 12/27/2017 12:00:00 AM EDT [facility] ([facility], ) Name Value Range Interpretation Description Data Sup porting Code Source(s) Document(s ) Urea nitrogen 41 mg/dL Above high normal [facility] ( St [Mass/volume] [facility]ony[facility] in Serum or [facility], [facility]) Plasma Glucose 154 mg/dL Above high normal [facility] (St [Mass/volume] Dony's in Urine Medical, ) collected for unspecified duration Creatinine 1.94 Above high normal [facility] (St [Interpretation mg/dL Dony's ] in Urine [facility], ) eGFR If Africn 45 Below low normal MEDGEN ( St Am mL/min/1. [facility]'s 73 [facility], ) eGFR If 39 Below low normal MED[facility] (St NonAfricn Am mL/min/1. Dony's 73 [facility], ) BUN/Creatinine 21 Above high normal MED[facility] (St Ratio Dony's [facility], ) Sodium 141 Normal (applies MED[facility] (St [Moles/volume] mmol/L to non-numeric Dony's in Serum or results) [facility], ) Plasma Chloride 105 Normal (applies [facility] (St [Moles/volume] mmol/L to non-numeric Dony's in Serum or results) [facility]) Plasma Potassium 5.5 Above high normal [facility] (St [Mass/volume] mmol/L Dony's in Blood [facility], ) Carbon dioxide, 21 mmol/L Normal (applies MEDGEN ( St total to non-numeric Dony's [Moles/volume] results) [facility]) in Serum or Plasma Calcium 9.3 mg/dL Normal (applies [facility] (St [Moles/volume] to non-numeric Dony's in Urine results) [facility], ) collected for unspecified duration ID Date Data Source [id number] 12/27/2017 12:00:00 AM EDT [facility] ([facility], ) Name Value Range Interpretation Description Data Sup porting Code Source(s) Document(s ) No Urine Test not Normal (applies to MEDGEN (St Received performed non-numeric Dony's . results) [facility], ) ID Date Data Source [id number] 12/27/2017 12:00:00 AM EDT [facility] ([facility], ) Name Value Range Interpretation Code Description Data Supporting Source(s) Document(s ) Albumin, Test not Normal (applies to MEDGEN (St Urine performed. non-numeric Dony's results) [facility]) ID Date Data Source [id number] 12/27/2017 12:00:00 AM EDT [facility] ([facility], ) Name Value Range Interpretation Code Description Data Kimberly rce(s) Supporting Document(s ) PDF Image . Normal (applies to MEDGEN (St non-numeric results) Dony's [facility]) ID Date Data Source [id number] 12/27/2017 12:00:00 AM EDT [facility] ([facility], ) Name Value Range Interpretation Description Data Sup porting Code Source(s) Document(s ) Urea nitrogen 41 mg/dL Above high normal MEDGEN ( St [Mass/volume] Dony's in Serum or Medical, ) Plasma Glucose 154 mg/dL Above high normal [facility] (St [Mass/volume] Dony's in Urine [facility], ) collected for unspecified duration Creatinine 1.94 Above high normal MEDGEN (St [Interpretation mg/dL Dony's ] in Urine [facility], ) eGFR If 39 Below low normal MEDGEN (St NonAfricn Am mL/min/1. [address], ) eGFR If Africn 45 Below low normal MEDGEN ( St Am mL/min/1. [facility]' 73 [facility], ) BUN/Creatinine 21 Above high normal MEDGEN (St Ratio Dony's [facility], ) Sodium 141 Normal (applies MEDGEN (St [Moles/volume] mmol/L to non-numeric Dony's in Serum or results) [facility], ) Plasma Potassium 5.5 Above high normal MEDGEN (St [Mass/volume] mmol/L Dony's in Blood [facility], ) Chloride 105 Normal (applies MEDGEN (St [Moles/volume] mmol/L to non-numeric Dony's in Serum or results) [facility], ) Plasma Carbon dioxide, 21 mmol/L Normal (applies MEDGEN ( St total to non-numeric Dony's [Moles/volume] results) [facility], ) in Serum or Plasma Calcium 9.3 mg/dL Normal (applies [facility] (St [Moles/volume] to non-numeric Dony's in Urine results) [facility], ) collected for unspecified duration ID Date Data Source [id number] 12/27/2017 12:00:00 AM EDT [facility] ([facility], ) Name Value Range Interpretation Code Description Data Kimberly rce(s) Supporting Document(s ) ID Date Data Source [id number] 12/27/2017 12:00:00 AM EDT [facility] ([facility], ) Name Value Range Interpretation Description Data Sup porting Code Source(s) Document(s ) No Urine Test not Normal (applies to MEDGEN (St Received performed non-numeric Dony's . results) [facility], ) ID Date Data Source [id number] 12/27/2017 12:00:00 AM EDT [facility] ( [facility] [facility], ) Name Value Range Interpretation Code Description Data Supporting Source(s) Document(s ) Albumin, Test not Normal (applies to MEDGEN (St Urine performed. non-numeric Dony's results) [facility], ) ID Date Data Source [id number] 12/27/2017 12:00:00 AM EDT [facility] ([facility], ) Name Value Range Interpretation Description Data Sup porting Code Source(s) Document(s ) Hemoglobin 9.4 % Above high normal MED[facility] (St A1c/Hemoglobin. Dony's total in Blood [facility], ) ID Date Data Source [id number] 12/27/2017 12:00:00 AM EDT MEDGEN ( [place] [facility], ) Name Value Range Interpretation Code Description Data Kimberly rce(s) Supporting Document(s ) PDF Image . Normal (applies to [facility] (St non-numeric results) [facility] ID Date Data Source [id number] 12/27/2017 12:00:00 AM EDT MED[facility] ( [place] [facility], ) Name Value Range Interpretation Description Data Sup porting Code Source(s) Document(s ) Glucose 154 mg/dL Above high normal MEDGEN (St [Mass/volume] Dony's in Urine [facility], ) collected for unspecified duration Urea nitrogen 41 mg/dL Above high normal MEDGEN ( St [Mass/volume] Dony's in Serum or Medical, ) Plasma Creatinine 1.94 Above high normal [facility] (St [Interpretation mg/dL Dony's ] in Urine [facility], ) eGFR If 39 Below low normal MEDGEN (St NonAfricn Am mL/min/1. Dony's [address] [place] [address], ) eGFR If Africn 45 Below low normal MEDGEN ( St Am mL/min/1. Dony's 73 [facility], ) BUN/Creatinine 21 Above high normal MEDGEN (St Ratio Dony's [facility], ) Sodium 141 Normal (applies MEDGEN (St [Moles/volume] mmol/L to non-numeric Dony's in Serum or results) [facility], ) Plasma Potassium 5.5 Above high normal [facility] (St [Mass/volume] mmol/L Dony's in Blood [facility], ) Carbon dioxide, 21 mmol/L Normal (applies MEDGEN ( St total to non-numeric Dony's [Moles/volume] results) Medical, ) in Serum or Plasma Chloride 105 Normal (applies [facility] (St [Moles/volume] mmol/L to non-numeric Dony's in Serum or results) Medical, ) Plasma Calcium 9.3 mg/dL Normal (applies [facility] (St [Moles/volume] to non-numeric Dony's in Urine results) Medical, ) collected for unspecified duration ID Date Data Source [id number] 12/27/2017 12:00:00 AM EDT [facility] ([facility], ) Name Value Range Interpretation Code Description Data Kimberly rce(s) Supporting Document(s ) ID Date Data Source [id number] 12/27/2017 12:00:00 AM EDT [facility] ([facility], ) Name Value Range Interpretation Description Data Sup porting Code Source(s) Document(s ) No Urine Test not Normal (applies to [facility] (St Received performed non-numeric Dony's . results) Medical, ) ID Date Data Source [id number] 12/27/2017 12:00:00 AM EDT [facility] ([facility], ) Name Value Range Interpretation Code Description Data Supporting Source(s) Document(s ) Albumin, Test not Normal (applies to [facility] (St Urine performed. non-numeric Dony's results) Medical, ) ID Date Data Source [id number] 12/27/2017 12:00:00 AM EDT [facility] ([facility], ) Name Value Range Interpretation Description Data Sup porting Code Source(s) Document(s ) Hemoglobin 9.4 % Above high normal [facility] (St A1c/Hemoglobin. Dony's total in Blood Medical, ) ID Date Data Source [id number] 12/27/2017 12:00:00 AM EDT [facility] ([facility]) Name Value Range Interpretation Code Description Data Kimberly rce(s) Supporting Document(s ) PDF Image . Normal (applies to MED[facility] (St non-numeric results) [facility]ony[facility], ) ID Date Data Source [id number] 12/27/2017 12:00:00 AM EDT [facility] ([facility], ) Name Value Range Interpretation Description Data Sup porting Code Source(s) Document(s ) Urea nitrogen 41 mg/dL Above high normal MEDGEN ( St [Mass/volume] Dony's in Serum or [facility], ) Plasma Glucose 154 mg/dL Above high normal [facility] (St [Mass/volume] Dony's in Urine [facility], ) collected for unspecified duration Creatinine 1.94 Above high normal [facility] (St [Interpretation mg/dL Dony's ] in Urine [facility], ) eGFR If 39 Below low normal MEDGEN (St NonAfricn Am mL/min/1. [address]) BUN/Creatinine 21 Above high normal MEDGEN (St Ratio [facility], ) eGFR If Africn 45 Below low normal MEDGEN ( St Am mL/min/1. [address], ) Sodium 141 Normal (applies MEDGEN (St [Moles/volume] mmol/L to non-numeric Dony's in Serum or results) [facility], ) Plasma Potassium 5.5 Above high normal [facility] (St [Mass/volume] mmol/L Dony's in Blood [facility], ) Chloride 105 Normal (applies [facility] (St [Moles/volume] mmol/L to non-numeric Dony's in Serum or results) [facility], ) Plasma Carbon dioxide, 21 mmol/L Normal (applies MEDGEN ( St total to non-numeric Dony's [Moles/volume] results) [facility], ) in Serum or Plasma Calcium 9.3 mg/dL Normal (applies [facility] (St [Moles/volume] to non-numeric Dony's in Urine results) [facility], ) collected for unspecified duration ID Date Data Source [id number] 12/27/2017 12:00:00 AM EDT [facility] (St [employer], ) Name Value Range Interpretation Code Description Data Kimberly rce(s) Supporting Document(s ) ID Date Data Source [id number] 12/27/2017 12:00:00 AM EDT [facility] ([facility], ) Name Value Range Interpretation Description Data Sup porting Code Source(s) Document(s ) No Urine Test not Normal (applies to MEDGEN (St Received performed non-numeric Dony's . results) [facility], ) No Urine Test not Normal (applies to MED[facility] (St Received performed non-numeric Dony's . results) [facility]) ID Date Data Source [id number] 12/27/2017 12:00:00 AM EDT [facility] ([facility]) Name Value Range Interpretation Code Description Data Supporting Source(s) Document(s ) Albumin, Test not Normal (applies to MED[facility] (St Urine performed. non-numeric Dony's results) Medical, ) ID Date Data Source [id number] 12/27/2017 12:00:00 AM EDT [facility] ([facility]) Name Value Range Interpretation Description Data Sup porting Code Source(s) Document(s ) Hemoglobin 9.1 % Above high normal [facility] (St A1c/Hemoglobin Dony's .total in Medical, [facility]) Blood Hemoglobin 11.6 % Above high normal [facility] (St A1c/Hemoglobin Dony's .total in Medical, PC) Blood Hemoglobin 9.0 % Above high normal [facility] (St A1c/Hemoglobin Dony's .total in Medical, ) Blood Hemoglobin 7.0 % Above high normal [facility] (St A1c/Hemoglobin Dony's .total in Medical, PC) Blood Hemoglobin 9.4 % Above high normal [facility] (St A1c/Hemoglobin Dony's .total in Medical, PC) Blood Hemoglobin 8.5 % Above high normal [facility] (St A1c/Hemoglobin Dony's .total in Medical, PC) Blood Hemoglobin 8.3 % Above high normal [facility] (St A1c/Hemoglobin Dony's .total in Medical, [facility]) Blood ID Date Data Source [id number] 12/27/2017 12:00:00 AM EDT [facility] ([facility]) Name Value Range Interpretation Description Data Sup porting Code Source(s) Document(s ) PDF Image . Normal (applies to [facility] (St non-numeric Dony's results) Medical, ) PDF Image . Normal (applies to [facility] (St non-numeric Dony's results) Medical, ) PDF . Normal (applies to [facility] (St non-numeric Dony's results) [facility], [facility]) PDF Image . Normal (applies to [facility] (St non-numeric Dony's results) Medical, ) PDF Image . Normal (applies to [facility] (St non-numeric Dony's results) Medical, ) PDF Not applicable Normal (applies to [facility] (St non-numeric Dony's results) Medical, ) PDF Image . Normal (applies to [facility] (St non-numeric Dony's results) Medical, ) PDF Image . Normal (applies to MED[facility] (St non-numeric Dony's results) Medical, ) PDF Image . Normal (applies to [facility] (St non-numeric Dony's results) [facility], ) PDF Image . Normal (applies to MEDGEN (St non-numeric Dony's results) [facility], ) PDF Image . Normal (applies to MEDGEN (St non-numeric Dony's results) [facility], ) ID Date Data Source [id number] 12/27/2017 12:00:00 AM EDT [facility] ([facility], ) Name Value Range Interpretation Description Data Sup porting Code Source(s) Document(s ) Urea nitrogen 19 mg/dL Normal (applies [facility] (St [Mass/volume] to non-numeric Dony's in Serum or results) Medical, ) Plasma Glucose 229 mg/dL Above high normal [facility] (St [Mass/volume] Dony's in Urine [facility], ) collected for unspecified duration Creatinine 1.04 Normal (applies [facility] (St [Interpretation mg/dL to non-numeric Dony's ] in Urine results) [facility], ) eGFR If 82 Normal (applies MEDGEN (St NonAfricn Am mL/min/1. to non-numeric Dony's 73 results) [facility], ) BUN/Creatinine 18 Normal (applies MEDGEN (S t Ratio to non-numeric Dony's results) [facility], ) eGFR If Africn 94 Normal (applies MEDGEN (S t Am mL/min/1. to non-numeric Dony's 73 results) Medical, ) Potassium 4.6 Normal (applies MEDGEN (St [Mass/volume] mmol/L to non-numeric Dony's in Blood results) [facility], ) Sodium 141 Normal (applies MEDGEN (St [Moles/volume] mmol/L to non-numeric Dony's in Serum or results) [facility], ) Plasma Carbon dioxide, 24 mmol/L Normal (applies MEDGEN ( St total to non-numeric Dony's [Moles/volume] results) Medical, ) in Serum or Plasma Chloride 104 Normal (applies MEDGEN (St [Moles/volume] mmol/L to non-numeric Dony's in Serum or results) [facility], ) Plasma Glucose 216 mg/dL Above high normal MEDGEN (St [Mass/volume] Dony's in Urine [facility], ) collected for unspecified duration Calcium 9.1 mg/dL Normal (applies MEDGEN (St [Moles/volume] to non-numeric Dony's in Urine results) [facility], ) collected for unspecified duration Urea nitrogen 29 mg/dL Above high normal MEDGEN ( St [Mass/volume] Dony's in Serum or [facility], ) Plasma eGFR If 35 Below low normal MEDGEN (St NonAfricn Am mL/min/. Dony's 73 [facility], ) Creatinine 2.10 Above high normal MEDGEN (St [Interpretation mg/dL Dony's ] in Urine [facility], ) BUN/Creatinine 14 Normal (applies MEDGEN (S t Ratio to non-numeric Dony's results) [facility], ) eGFR If Africn 40 Below low normal MEDGEN ( St Am mL/min/1. [facility] 73 [facility], ) Sodium 144 Normal (applies MEDGEN (St [Moles/volume] mmol/L to non-numeric Dony's in Serum or results) [facility], ) Plasma Potassium 3.9 Normal (applies MEDGEN (St [Mass/volume] mmol/L to non-numeric Dony's in Blood results) [facility], ) Chloride 109 Above high normal MEDGEN (St [Moles/volume] mmol/L Dony's in Serum or [facility], ) Plasma Carbon dioxide, 23 mmol/L Normal (applies MEDGEN ( St total to non-numeric Dony's [Moles/volume] results) [facility], ) in Serum or Plasma Calcium 8.7 mg/dL Normal (applies MEDGEN (St [Moles/volume] to non-numeric Dony's in Urine results) [facility], ) collected for unspecified duration Glucose 129 mg/dL Above high normal MEDGEN (St [Mass/volume] Dony's in Urine [facility], ) collected for unspecified duration Creatinine 2.54 Above high normal [facility] (St [Interpretation mg/dL Dony's ] in Urine [facility], ) Urea nitrogen 39 mg/dL Above high normal MEDGEN ( St [Mass/volume] Dony's in Serum or [facility], ) Plasma eGFR If Africn 32 Below low normal MEDGEN ( St Am mL/min/. Dony's 73 [facility], ) eGFR If 28 Below low normal MEDGEN (St NonAfricn Am mL/min/1. Dony's 73 [facility] [facility], ) BUN/Creatinine 15 Normal (applies MEDGEN (S t Ratio to non-numeric [facility] results) [facility], ) Potassium 4.1 Normal (applies MEDGEN (St [Mass/volume] mmol/L to non-numeric Dony's in Blood results) [facility], ) Sodium 145 Above high normal MEDGEN (St [Moles/volume] mmol/L Dony's in Serum or [facility], ) Plasma Chloride 111 Above high normal MEDGEN (St [Moles/volume] mmol/L Dony[facility] in Serum or [facility], ) Plasma Carbon dioxide, 20 mmol/L Normal (applies MEDGEN ( St total to non-numeric Dony's [Moles/volume] results) [facility], ) in Serum or Plasma Calcium 8.2 mg/dL Below low normal MEDGEN (St [Moles/volume] Dony[facility] in Urine [facility], ) collected for unspecified duration Glucose 321 mg/dL Above high normal MEDGEN (St [Mass/volume] [facility]ony[facility] in Urine [facility], ) collected for unspecified duration Creatinine 0.99 Normal (applies MEDGEN (St [Interpretation mg/dL to non-numeric Dony's ] in Urine results) [facility], ) Urea nitrogen 25 mg/dL Above high normal MEDGEN ( St [Mass/volume] [facility] in Serum or [facility], ) Plasma eGFR If 87 Normal (applies MEDGEN (St NonAfricn Am mL/min/1. to non-numeric [facility] 73 results) [facility], ) eGFR If Africn 101 Normal (applies MEDGEN (S t Am mL/min/1. to non-numeric [facility]ony's 73 results) [facility], ) Sodium 138 Normal (applies MEDGEN (St [Moles/volume] mmol/L to non-numeric [facility] in Serum or results) [facility], ) Plasma BUN/Creatinine 25 Above high normal MEDGEN (St Ratio Dony's [facility], ) Potassium 5.6 Above high normal MEDGEN (St [Mass/volume] mmol/L [facility] in Blood [facility], ) Carbon dioxide, 21 mmol/L Normal (applies MEDGEN ( St total to non-numeric Dony's [Moles/volume] results) [facility], ) in Serum or Plasma Chloride 103 Normal (applies MEDGEN (St [Moles/volume] mmol/L to non-numeric [facility] in Serum or results) [facility], ) Plasma Glucose 154 mg/dL Above high normal MEDGEN (St [Mass/volume] [facility] in Urine [facility], ) collected for unspecified duration Calcium 9.8 mg/dL Normal (applies MEDGEN (St [Moles/volume] to non-numeric [facility]ony[facility] in Urine results) [facility], ) collected for unspecified duration Urea nitrogen 41 mg/dL Above high normal MEDGEN ( St [Mass/volume] Dnoy's in Serum or [facility], ) Plasma Creatinine 1.94 Above high normal MEDGEN (St [Interpretation mg/dL Dony's ] in Urine [facility], ) eGFR If 39 Below low normal MEDGEN (St NonAfricn Am mL/min/1. Dony's 73 [facility], ) eGFR If Africn 45 Below low normal MEDGEN ( St Am mL/min/1. Dony's 73 [facility], ) Sodium 141 Normal (applies MEDGEN (St [Moles/volume] mmol/L to non-numeric [facility] in Serum or results) [facility], ) Plasma BUN/Creatinine 21 Above high normal MEDGEN (St Ratio Dony's [facility], ) Potassium 5.5 Above high normal MEDGEN (St [Mass/volume] mmol/L [facility]ony[facility] in Blood [facility], ) Chloride 105 Normal (applies MEDGEN (St [Moles/volume] mmol/L to non-numeric [facility]ony[facility] in Serum or results) [facility], ) Plasma Carbon dioxide, 21 mmol/L Normal (applies MEDGEN ( St total to non-numeric [facility]ony's [Moles/volume] results) [facility], ) in Serum or Plasma Glucose 88 mg/dL Normal (applies MEDGEN (St [Mass/volume] to non-numeric Dony's in Urine results) [facility], ) collected for unspecified duration Calcium 9.3 mg/dL Normal (applies MEDGEN (St [Moles/volume] to non-numeric Dony's in Urine results) [facility], ) collected for unspecified duration Creatinine 1.45 Above high normal MEDGEN (St [Interpretation mg/dL Dony's ] in Urine [facility], ) Urea nitrogen 33 mg/dL Above high normal MEDGEN ( St [Mass/volume] [facility]ony[facility] in Serum or [facility], ) Plasma eGFR If Africn 63 Normal (applies MEDGEN (S t Am mL/min/1. to non-numeric [facility] 73 results) Medical, ) eGFR If 55 Below low normal MEDGEN (St NonAfricn Am mL/min/1. [facility]'s 73 [facility], ) BUN/Creatinine 23 Above high normal [facility] (St Ratio [facility], ) Sodium 143 Normal (applies MEDGEN (St [Moles/volume] mmol/L to non-numeric [facility] in Serum or results) [facility], ) Plasma Chloride 106 Normal (applies MEDGEN (St [Moles/volume] mmol/L to non-numeric [facility] in Serum or results) [facility], ) Plasma Potassium 5.4 Above high normal MEDGEN (St [Mass/volume] mmol/L [facility]ony[facility] in Blood [facility], ) Carbon dioxide, 20 mmol/L Normal (applies MEDGEN ( St total to non-numeric [facility] [Moles/volume] results) [facility], ) in Serum or Plasma Glucose 238 mg/dL Above high normal MEDGEN (St [Mass/volume] [facility] in Urine [facility], ) collected for unspecified duration Calcium 9.4 mg/dL Normal (applies MEDGEN (St [Moles/volume] to non-numeric [facility] in Urine results) [facility], ) collected for unspecified duration Creatinine 1.13 Normal (applies MEDGEN (St [Interpretation mg/dL to non-numeric Dony's ] in Urine results) [facility], ) Urea nitrogen 21 mg/dL Normal (applies MEDGEN (St [Mass/volume] to non-numeric Dony's in Serum or results) [facility], ) Plasma eGFR If 74 Normal (applies MEDGEN (St NonAfricn Am mL/min/1. to non-numeric [facility] 73 results) Medical, ) eGFR If Africn 85 Normal (applies MEDGEN (S t Am mL/min/1. to non-numeric [facility] 73 results) [facility], ) BUN/Creatinine 19 Normal (applies MEDGEN (S t Ratio to non-numeric Dony's results) [facility], ) Sodium 140 Normal (applies MEDGEN (St [Moles/volume] mmol/L to non-numeric [facility] in Serum or results) [facility], ) Plasma Potassium 4.5 Normal (applies MEDGEN (St [Mass/volume] mmol/L to non-numeric [facility] in Blood results) [facility], ) Chloride 103 Normal (applies MEDGEN (St [Moles/volume] mmol/L to non-numeric [facility]ony[facility] in Serum or results) Medical, ) Plasma Calcium 9.8 mg/dL Normal (applies MEDGEN (St [Moles/volume] to non-numeric [facility] in Urine results) [facility], ) collected for unspecified duration Carbon dioxide, 19 mmol/L Below low normal MEDGEN (St total Dony's [Moles/volume] [facility], ) in Serum or Plasma Glucose 320 mg/dL Above high normal MEDGEN (St [Mass/volume] [facility]ony[facility] in Urine [facility], ) collected for unspecified duration Urea nitrogen 28 mg/dL Above high normal MEDGEN ( St [Mass/volume] [facility]ony[facility] in Serum or [facility], ) Plasma Creatinine 1.40 Above high normal MEDGEN (St [Interpretation mg/dL Dony's ] in Urine [facility], ) eGFR If 57 Below low normal MEDGEN (St NonAfricn Am mL/min/1. Dony's 73 [facility], ) eGFR If Africn 65 Normal (applies MEDGEN (S t Am mL/min/1. to non-numeric [facility]ony's 73 results) [facility], ) BUN/Creatinine 20 Normal (applies MEDGEN (S t Ratio to non-numeric Dony's results) [facility], ) Sodium 141 Normal (applies MEDGEN (St [Moles/volume] mmol/L to non-numeric [facility] in Serum or results) Medical, ) Plasma Potassium 4.3 Normal (applies MEDGEN (St [Mass/volume] mmol/L to non-numeric [facility]ony[facility] in Blood results) [facility], ) Chloride 103 Normal (applies MEDGEN (St [Moles/volume] mmol/L to non-numeric Dony's in Serum or results) [facility], ) Plasma Calcium 8.9 mg/dL Normal (applies MEDGEN (St [Moles/volume] to non-numeric Dony's in Urine results) [facility], ) collected for unspecified duration Carbon dioxide, 22 mmol/L Normal (applies MEDGEN ( St total to non-numeric [facility] [Moles/volume] results) [facility], ) in Serum or Plasma ID Date Data Source [id number] 12/27/2017 12:00:00 AM EDT [facility] ([facility], ) Name Value Range Interpretation Code Description Data Kimberly rce(s) Supporting Document(s ) ID Date Data Source [id number] 12/27/2017 12:00:00 AM EDT [facility] ([facility] Name Value Range Interpretation Description Data Sup porting Code Source(s) Document(s ) No Urine Test not Normal (applies to MEDGEN (St Received performed non-numeric [facility]'s . results) [facility], ) ID Date Data Source [id number] 12/27/2017 12:00:00 AM EDT [facility] ([facility], ) Name Value Range Interpretation Description Data Sup porting Code Source(s) Document(s ) Hemoglobin 9.4 % Above high normal MEDGEN (St A1c/Hemoglobin. [facility] total in Blood Medical, ) ID Date Data Source [id number] 12/27/2017 12:00:00 AM EDT [facility] ([facility], ) Name Value Range Interpretation Code Description Data Kimberly rce(s) Supporting Document(s ) PDF Image . Normal (applies to MEDGEN (St non-numeric results) [facility], ) ID Date Data Source [id number] 12/27/2017 12:00:00 AM EDT [facility] ([facility], ) Name Value Range Interpretation Description Data Sup porting Code Source(s) Document(s ) Glucose 154 mg/dL Above high normal [facility] (St [Mass/volume] [facility] in Urine [facility], ) collected for unspecified duration Urea nitrogen 41 mg/dL Above high normal MEDGEN ( St [Mass/volume] [facility] in Serum or Medical, ) Plasma Creatinine 1.94 Above high normal [facility] (St [Interpretation mg/dL Dony's ] in Urine [facility], ) eGFR If 39 Below low normal MED[facility] (St NonAfricn Am mL/min/1. [facility], ) eGFR If Africn 45 Below low normal MEDGEN ( St Am mL/min/1. [facility] 73 [facility], ) BUN/Creatinine 21 Above high normal [facility] (St Ratio [facility], ) Sodium 141 Normal (applies MEDGEN (St [Moles/volume] mmol/L to non-numeric [facility] in Serum or results) Medical, ) Plasma Chloride 105 Normal (applies MEDGEN (St [Moles/volume] mmol/L to non-numeric [facility] in Serum or results) [facility], ) Plasma Potassium 5.5 Above high normal [facility] (St [Mass/volume] mmol/L [facility] in Blood [facility], ) Carbon dioxide, 21 mmol/L Normal (applies MEDGEN ( St total to non-numeric [facility]ony's [Moles/volume] results) [facility], ) in Serum or Plasma Calcium 9.3 mg/dL Normal (applies [facility]GEN (St [Moles/volume] to non-numeric [facility] in Urine results) [facility], ) collected for unspecified duration ID Date Data Source [id number] 12/27/2017 12:00:00 AM EDT [facility] ([facility], ) Name Value Range Interpretation Code Description Data Kimberly rce(s) Supporting Document(s ) ID Date Data Source [id number] 12/27/2017 12:00:00 AM EDT [facility] ([facility], ) Name Value Range Interpretation Description Data Sup porting Code Source(s) Document(s ) No Urine Test not Normal (applies to MEDGEN (St Received performed non-numeric [facility] . results) [facility], ) ID Date Data Source [id number] 12/27/2017 12:00:00 AM EDT [facility] ([facility], ) Name Value Range Interpretation Code Description Data Supporting Source(s) Document(s ) Albumin, Test not Normal (applies to MEDGEN (St Urine performed. non-numeric Dony's results) [facility], ) ID Date Data Source [id number] 12/27/2017 12:00:00 AM EDT [facility] ([facility], ) Name Value Range Interpretation Description Data Sup porting Code Source(s) Document(s ) Hemoglobin 9.4 % Above high normal MEDGEN (St A1c/Hemoglobin. [facility]ony[facility] total in Blood [facility], ) ID Date Data Source [id number] 12/27/2017 12:00:00 AM EDT [facility] ([facility], ) Name Value Range Interpretation Code Description Data Kimberly rce(s) Supporting Document(s ) PDF Image . Normal (applies to MEDGEN (St non-numeric results) [facility], ) ID Date Data Source [id number] 12/27/2017 12:00:00 AM EDT [facility] ([facility], ) Name Value Range Interpretation Description Data Sup porting Code Source(s) Document(s ) Glucose 154 mg/dL Above high normal MEDGEN (St [Mass/volume] [facility] in Urine [facility], ) collected for unspecified duration Urea nitrogen 41 mg/dL Above high normal MEDGEN ( St [Mass/volume] [facility] in Serum or [facility], ) Plasma Creatinine 1.94 Above high normal [facility] (St [Interpretation mg/dL Dony's ] in Urine [facility], ) eGFR If 39 Below low normal MEDGEN (St NonAfricn Am mL/min/1. [address], ) eGFR If Africn 45 Below low normal MEDGEN ( St Am mL/min/1. [facility], ) BUN/Creatinine 21 Above high normal MEDGEN (St Ratio Dony's [facility], ) Sodium 141 Normal (applies MEDGEN (St [Moles/volume] mmol/L to non-numeric Dony's in Serum or results) [facility], ) Plasma Potassium 5.5 Above high normal MED[facility] (St [Mass/volume] mmol/L [facility] in Blood [facility], ) Chloride 105 Normal (applies MEDGEN (St [Moles/volume] mmol/L to non-numeric [facility] in Serum or results) [facility], ) Plasma Carbon dioxide, 21 mmol/L Normal (applies MEDGEN ( St total to non-numeric [facility]ony's [Moles/volume] results) [facility], ) in Serum or Plasma Calcium 9.3 mg/dL Normal (applies MEDGEN (St [Moles/volume] to non-numeric Dony's in Urine results) [facility], ) collected for unspecified duration ID Date Data Source [id number] 10/09/2017 12:00:00 AM EDT [facility] ([facility], ) Name Value Range Interpretation Code Description Data Kimberly rce(s) Supporting Document(s ) ID Date Data Source [id number] 10/09/2017 12:00:00 AM EDT [facility] ([facility], ) Name Value Range Interpretation Description Data Sup porting Code Source(s) Document(s ) Hemoglobin 11.6 % Above high normal MEDGEN (St A1c/Hemoglobin [facility]ony[facility] .total in Medical, ) Blood ID Date Data Source [id number] 10/09/2017 12:00:00 AM EDT [facility] ([facility], ) Name Value Range Interpretation Code Description Data Kimberly rce(s) Supporting Document(s ) PDF Image . Normal (applies to MEDGEN (St non-numeric results) [facility], ) ID Date Data Source [id number] 10/09/2017 12:00:00 AM EDT [facility] ([facility], ) Name Value Range Interpretation Description Data Sup porting Code Source(s) Document(s ) Glucose 321 mg/dL Above high normal [facility] (St [Mass/volume] [facility] in Urine [facility], ) collected for unspecified duration Urea nitrogen 25 mg/dL Above high normal [facility] ( St [Mass/volume] [facility] in Serum or Medical, ) Plasma Creatinine 0.99 Normal (applies MED[facility] (St [Interpretation mg/dL to non-numeric [facility]ony's ] in Urine results) Medical, ) eGFR If 87 Normal (applies MEDGEN (St NonAfricn Am mL/min/1. to non-numeric [facility] 73 results) Medical, ) eGFR If Africn 101 Normal (applies MEDGEN (S t Am mL/min/1. to non-numeric [facility] 73 results) Medical, ) BUN/Creatinine 25 Above high normal [facility] (St Ratio Dony's [facility], ) Potassium 5.6 Above high normal [facility] (St [Mass/volume] mmol/L [facility] in Blood [facility], ) Sodium 138 Normal (applies [facility]GEN (St [Moles/volume] mmol/L to non-numeric [facility] in Serum or results) Medical, ) Plasma Chloride 103 Normal (applies [facility]GEN (St [Moles/volume] mmol/L to non-numeric [facility] in Serum or results) Medical, ) Plasma Carbon dioxide, 21 mmol/L Normal (applies MEDGEN ( St total to non-numeric [facility] [Moles/volume] results) Medical, ) in Serum or Plasma Calcium 9.8 mg/dL Normal (applies [facility] (St [Moles/volume] to non-numeric [facility] in Urine results) Medical, ) collected for unspecified duration ID Date Data Source [id number] 10/09/2017 12:00:00 AM EDT [facility] ([facility], ) Name Value Range Interpretation Code Description Data Kimberly rce(s) Supporting Document(s ) ID Date Data Source [id number] 10/09/2017 12:00:00 AM EDT [facility] ( [facility], ) Name Value Range Interpretation Description Data Sup porting Code Source(s) Document(s ) Hemoglobin 11.6 % Above high normal [facility] (St A1c/Hemoglobin [facility] .total in Medical, ) Blood ID Date Data Source [id number] 10/09/2017 12:00:00 AM EDT [facility] ([facility], ) Name Value Range Interpretation Code Description Data Kimberly rce(s) Supporting Document(s ) PDF Image . Normal (applies to MEDGEN (St non-numeric results) [facility], ) ID Date Data Source [id number] 10/09/2017 12:00:00 AM EDT [facility] ([facility], ) Name Value Range Interpretation Description Data Sup porting Code Source(s) Document(s ) Glucose 321 mg/dL Above high normal [facility] (St [Mass/volume] [facility] in Urine [facility], ) collected for unspecified duration Urea nitrogen 25 mg/dL Above high normal MED[facility] ( St [Mass/volume] [facility] in Serum or Medical, ) Plasma Creatinine 0.99 Normal (applies [facility] (St [Interpretation mg/dL to non-numeric Dony's ] in Urine results) Medical, ) eGFR If 87 Normal (applies MEDGEN (St NonAfricn Am mL/min/1. to non-numeric [facility]'s 73 results) Medical, ) eGFR If Africn 101 Normal (applies MEDGEN (S t Am mL/min/1. to non-numeric [facility] 73 results) Medical, ) BUN/Creatinine 25 Above high normal [facility] (St Ratio Dony's [facility], ) Sodium 138 Normal (applies MEDGEN (St [Moles/volume] mmol/L to non-numeric [facility] in Serum or results) Medical, ) Plasma Chloride 103 Normal (applies [facility]GEN (St [Moles/volume] mmol/L to non-numeric [facility] in Serum or results) Medical, ) Plasma Potassium 5.6 Above high normal [facility] (St [Mass/volume] mmol/L [facility] in Blood [facility], ) Carbon dioxide, 21 mmol/L Normal (applies MEDGEN ( St total to non-numeric [facility] [Moles/volume] results) Medical, ) in Serum or Plasma Calcium 9.8 mg/dL Normal (applies MEDGEN (St [Moles/volume] to non-numeric [facility] in Urine results) Medical, ) collected for unspecified duration ID Date Data Source [id number] 10/09/2017 12:00:00 AM EDT [facility] ([facility], ) Name Value Range Interpretation Code Description Data Kimberly rce(s) Supporting Document(s ) ID Date Data Source [id number] 10/09/2017 12:00:00 AM EDT [facility] ([facility], ) Name Value Range Interpretation Description Data Sup porting Code Source(s) Document(s ) Hemoglobin 11.6 % Above high normal MED[facility] (St A1c/Hemoglobin Dony's .total in [facility], ) Blood ID Date Data Source [id number] 10/09/2017 12:00:00 AM EDT [facility] ([facility], ) Name Value Range Interpretation Code Description Data Kimberly rce(s) Supporting Document(s ) PDF Image . Normal (applies to MEDGEN (St non-numeric results) [facility]) ID Date Data Source [id number] 10/09/2017 12:00:00 AM EDT [facility] ([facility], ) Name Value Range Interpretation Description Data Sup porting Code Source(s) Document(s ) Glucose 321 mg/dL Above high normal [facility] (St [Mass/volume] Dony[facility] in Urine [facility], ) collected for unspecified duration Creatinine 0.99 Normal (applies MEDGEN (St [Interpretation mg/dL to non-numeric Dony's ] in Urine results) [facility], ) Urea nitrogen 25 mg/dL Above high normal [facility] ( St [Mass/volume] [facility] in Serum or [facility], ) Plasma eGFR If 87 Normal (applies MEDGEN (St NonAfricn Am mL/min/1. to non-numeric [facility] 73 results) Medical, ) eGFR If Africn 101 Normal (applies MEDGEN (S t Am mL/min/1. to non-numeric [facility]'s 73 results) Medical, ) BUN/Creatinine 25 Above high normal [facility] (St Ratio Dony's [facility], ) Sodium 138 Normal (applies [facility]GEN (St [Moles/volume] mmol/L to non-numeric [facility] in Serum or results) Medical, ) Plasma Potassium 5.6 Above high normal MEDGEN (St [Mass/volume] mmol/L [facility] in Blood Medical, ) Chloride 103 Normal (applies MEDGEN (St [Moles/volume] mmol/L to non-numeric [facility] in Serum or results) Medical, ) Plasma Carbon dioxide, 21 mmol/L Normal (applies MEDGEN ( St total to non-numeric D[facility]'s [Moles/volume] results) [facility], ) in Serum or Plasma Calcium 9.8 mg/dL Normal (applies MEDGEN (St [Moles/volume] to non-numeric [facility]'s in Urine results) [facility], ) collected for unspecified duration ID Date Data Source [id number] 10/09/2017 12:00:00 AM EDT [facility] ([facility], ) Name Value Range Interpretation Code Description Data Kimberly rce(s) Supporting Document(s ) ID Date Data Source [id number] 10/09/2017 12:00:00 AM EDT [facility] ([facility], ) Name Value Range Interpretation Description Data Sup porting Code Source(s) Document(s ) Hemoglobin 11.6 % Above high normal MEDGEN (St A1c/Hemoglobin Dony's .total in [facility], ) Blood ID Date Data Source [id number] 10/09/2017 12:00:00 AM EDT [facility] ([facility], ) Name Value Range Interpretation Code Description Data Kimberly rce(s) Supporting Document(s ) PDF Image . Normal (applies to MEDGEN (St non-numeric results) [facility], ) ID Date Data Source [id number] 10/09/2017 12:00:00 AM EDT [facility] ([facility], ) Name Value Range Interpretation Description Data Sup porting Code Source(s) Document(s ) Glucose 321 mg/dL Above high normal MEDGEN (St [Mass/volume] [facility] in Urine [facility], ) collected for unspecified duration Urea nitrogen 25 mg/dL Above high normal MEDGEN ( St [Mass/volume] [facility] in Serum or Medical, ) Plasma Creatinine 0.99 Normal (applies MED[facility] (St [Interpretation mg/dL to non-numeric [facility]'s ] in Urine results) Medical, ) eGFR If Africn 101 Normal (applies MEDGEN (S t Am mL/min/1. to non-numeric [facility] 73 results) Medical, ) eGFR If 87 Normal (applies MEDGEN (St NonAfricn Am mL/min/1. to non-numeric [facility] 73 results) Medical, ) BUN/Creatinine 25 Above high normal MEDGEN (St Ratio [facility], ) Sodium 138 Normal (applies MEDGEN (St [Moles/volume] mmol/L to non-numeric [facility] in Serum or results) Medical, ) Plasma Potassium 5.6 Above high normal MEDGEN (St [Mass/volume] mmol/L [facility] in Blood Medical, ) Chloride 103 Normal (applies MEDGEN (St [Moles/volume] mmol/L to non-numeric [facility] in Serum or results) Medical, ) Plasma Carbon dioxide, 21 mmol/L Normal (applies MEDGEN ( St total to non-numeric [facility] [Moles/volume] results) Medical, ) in Serum or Plasma Calcium 9.8 mg/dL Normal (applies [facility] (St [Moles/volume] to non-numeric [facility] in Urine results) Medical, ) collected for unspecified duration ID Date Data Source [id number] 10/09/2017 12:00:00 AM EDT [facility] ([facility], ) Name Value Range Interpretation Description Data Sup porting Code Source(s) Document(s ) Glucose 321 mg/dL Above high normal [facility] (St [Mass/volume] [facility] in Urine [facility], ) collected for unspecified duration Urea nitrogen 25 mg/dL Above high normal MEDGEN ( St [Mass/volume] [facility] in Serum or Medical, ) Plasma Creatinine 0.99 Normal (applies [facility]GEN (St [Interpretation mg/dL to non-numeric [facility] ] in Urine results) Medical, ) eGFR If 87 Normal (applies MEDGEN (St NonAfricn Am mL/min/1. to non-numeric [facility] 73 results) Medical, ) eGFR If Africn 101 Normal (applies MEDGEN (S t Am mL/min/1. to non-numeric [facility] 73 results) [facility], ) BUN/Creatinine 25 Above high normal MEDGEN (St Ratio [facility], ) Sodium 138 Normal (applies MEDGEN (St [Moles/volume] mmol/L to non-numeric [facility] in Serum or results) Medical, ) Plasma Potassium 5.6 Above high normal MEDGEN (St [Mass/volume] mmol/L [facility] in Blood [facility], ) Chloride 103 Normal (applies MEDGEN (St [Moles/volume] mmol/L to non-numeric [facility] in Serum or results) [facility], ) Plasma Carbon dioxide, 21 mmol/L Normal (applies MEDGEN ( St total to non-numeric [facility] [Moles/volume] results) [facility], ) in Serum or Plasma Calcium 9.8 mg/dL Normal (applies [facility] (St [Moles/volume] to non-numeric [facility] in Urine results) [facility], ) collected for unspecified duration ID Date Data Source [id number] 10/09/2017 12:00:00 AM EDT [facility] ([facility], ) Name Value Range Interpretation Code Description Data Kimberly rce(s) Supporting Document(s ) ID Date Data Source [id number] 10/09/2017 12:00:00 AM EDT [facility] ([facility], ) Name Value Range Interpretation Description Data Sup porting Code Source(s) Document(s ) Hemoglobin 11.6 % Above high normal MED[facility] (St A1c/Hemoglobin [facility] .total in [facility], ) Blood ID Date Data Source [id number] 10/09/2017 12:00:00 AM EDT [facility] ([facility], ) Name Value Range Interpretation Code Description Data Kimberly rce(s) Supporting Document(s ) ID Date Data Source [id number] 10/09/2017 12:00:00 AM EDT [facility] ([facility], ) Name Value Range Interpretation Description Data Sup porting Code Source(s) Document(s ) Hemoglobin 11.6 % Above high normal [facility] (St A1c/Hemoglobin [facility] .total in [facility], ) Blood ID Date Data Source [id number] 10/09/2017 12:00:00 AM EDT [facility] ([facility], ) Name Value Range Interpretation Code Description Data Kimberly rce(s) Supporting Document(s ) PDF Image . Normal (applies to MEDGEN (St non-numeric results) [facility]) ID Date Data Source [id number] 10/09/2017 12:00:00 AM EDT [facility] ([facility], ) Name Value Range Interpretation Description Data Sup porting Code Source(s) Document(s ) Glucose 321 mg/dL Above high normal [facility] (St [Mass/volume] [facility] in Urine [facility], ) collected for unspecified duration Urea nitrogen 25 mg/dL Above high normal [facility] ( St [Mass/volume] [facility] in Serum or [facility], ) Plasma Creatinine 0.99 Normal (applies [facility] (St [Interpretation mg/dL to non-numeric [facility] ] in Urine results) [facility], ) eGFR If 87 Normal (applies MEDGEN (St NonAfricn Am mL/min/1. to non-numeric [facility] 73 results) [facility], ) eGFR If Africn 101 Normal (applies MEDGEN (S t Am mL/min/1. to non-numeric [facility] 73 results) [facility], ) Sodium 138 Normal (applies MEDGEN (St [Moles/volume] mmol/L to non-numeric [facility] in Serum or results) [facility], ) Plasma BUN/Creatinine 25 Above high normal MEDGEN (St Ratio [facility], ) Potassium 5.6 Above high normal [facility] (St [Mass/volume] mmol/L [facility] in Blood [facility], ) Chloride 103 Normal (applies MEDGEN (St [Moles/volume] mmol/L to non-numeric [facility] in Serum or results) [facility], ) Plasma Calcium 9.8 mg/dL Normal (applies [facility] (St [Moles/volume] to non-numeric [facility] in Urine results) [facility], ) collected for unspecified duration Carbon dioxide, 21 mmol/L Normal (applies MEDGEN ( St total to non-numeric [facility] [Moles/volume] results) [facility], ) in Serum or Plasma ID Date Data Source [id number] 10/09/2017 12:00:00 AM EDT [facility] ([facility], ) Name Value Range Interpretation Code Description Data Kimberly rce(s) Supporting Document(s ) PDF Image . Normal (applies to MED[facility] (St non-numeric results) [facility], ) ID Date Data Source [id number] 10/09/2017 12:00:00 AM EDT [facility] ([facility], ) Name Value Range Interpretation Description Data Sup porting Code Source(s) Document(s ) Glucose 321 mg/dL Above high normal [facility] (St [Mass/volume] [facility] in Urine [facility], ) collected for unspecified duration Urea nitrogen 25 mg/dL Above high normal [facility] ( St [Mass/volume] [facility] in Serum or Medical, ) Plasma Creatinine 0.99 Normal (applies [facility]GEN (St [Interpretation mg/dL to non-numeric [facility] ] in Urine results) [facility], ) eGFR If 87 Normal (applies MEDGEN (St NonAfricn Am mL/min/1. to non-numeric [facility] 73 results) Medical, ) eGFR If Africn 101 Normal (applies MEDGEN (S t Am mL/min/1. to non-numeric [facility] 73 results) [facility], ) BUN/Creatinine 25 Above high normal [facility] (St Ratio [facility], ) Sodium 138 Normal (applies [facility] (St [Moles/volume] mmol/L to non-numeric [facility] in Serum or results) Medical, ) Plasma Potassium 5.6 Above high normal [facility] (St [Mass/volume] mmol/L [facility] in Blood [facility], ) Chloride 103 Normal (applies [facility]GEN (St [Moles/volume] mmol/L to non-numeric [facility] in Serum or results) Medical, ) Plasma Carbon dioxide, 21 mmol/L Normal (applies MEDGEN ( St total to non-numeric [facility] [Moles/volume] results) [facility], ) in Serum or Plasma Calcium 9.8 mg/dL Normal (applies [facility] (St [Moles/volume] to non-numeric [facility] in Urine results) [facility], ) collected for unspecified duration ID Date Data Source [id number] 10/09/2017 12:00:00 AM EDT [facility] ([facility], ) Name Value Range Interpretation Code Description Data Kimberly rce(s) Supporting Document(s ) ID Date Data Source [id number] 10/09/2017 12:00:00 AM EDT [facility] ([facility], ) Name Value Range Interpretation Description Data Sup porting Code Source(s) Document(s ) Glucose 321 mg/dL Above high normal [facility] (St [Mass/volume] [facility] in Urine [facility], ) collected for unspecified duration Urea nitrogen 25 mg/dL Above high normal [facility] ( St [Mass/volume] [facility] in Serum or [facility], ) Plasma Creatinine 0.99 Normal (applies [facility] (St [Interpretation mg/dL to non-numeric [facility] ] in Urine results) Medical, ) eGFR If 87 Normal (applies MEDGEN (St NonAfricn Am mL/min/1. to non-numeric [facility] 73 results) Medical, ) eGFR If Africn 101 Normal (applies MEDGEN (S t Am mL/min/1. to non-numeric [facility] 73 results) [facility], ) BUN/Creatinine 25 Above high normal MEDGEN (St Ratio [facility], ) Sodium 138 Normal (applies MEDGEN (St [Moles/volume] mmol/L to non-numeric [facility] in Serum or results) [facility], ) Plasma Potassium 5.6 Above high normal [facility] (St [Mass/volume] mmol/L [facility] in Blood [facility], ) Chloride 103 Normal (applies MEDGEN (St [Moles/volume] mmol/L to non-numeric [facility] in Serum or results) Medical, ) Plasma Carbon dioxide, 21 mmol/L Normal (applies MEDGEN ( St total to non-numeric [facility] [Moles/volume] results) [facility], ) in Serum or Plasma Calcium 9.8 mg/dL Normal (applies [facility]GEN (St [Moles/volume] to non-numeric [facility] in Urine results) [facility], ) collected for unspecified duration ID Date Data Source [id number] 10/09/2017 12:00:00 AM EDT [facility] ([facility], ) Name Value Range Interpretation Code Description Data Kimberly rce(s) Supporting Document(s ) ID Date Data Source [id number] 10/09/2017 12:00:00 AM EDT [facility] ([facility], ) Name Value Range Interpretation Description Data Sup porting Code Source(s) Document(s ) Hemoglobin 11.6 % Above high normal MED[facility] (St A1c/Hemoglobin [facility] .total in [facility], ) Blood ID Date Data Source [id number] 10/09/2017 12:00:00 AM EDT [facility] ([facility], ) Name Value Range Interpretation Description Data Sup porting Code Source(s) Document(s ) Glucose 321 mg/dL Above high normal [facility] (St [Mass/volume] [facility] in Urine [facility], ) collected for unspecified duration Creatinine 0.99 Normal (applies [facility]GEN (St [Interpretation mg/dL to non-numeric [facility] ] in Urine results) Medical, ) Urea nitrogen 25 mg/dL Above high normal MED[facility] ( St [Mass/volume] [facility] in Serum or [facility], ) Plasma eGFR If 87 Normal (applies MEDGEN (St NonAfricn Am mL/min/1. to non-numeric [facility] 73 results) Medical, ) eGFR If Africn 101 Normal (applies MEDGEN (S t Am mL/min/1. to non-numeric [facility] 73 results) Medical, ) BUN/Creatinine 25 Above high normal [facility] (St Ratio [facility], ) Potassium 5.6 Above high normal [facility] (St [Mass/volume] mmol/L [facility] in Blood Medical, ) Sodium 138 Normal (applies MEDGEN (St [Moles/volume] mmol/L to non-numeric [facility] in Serum or results) Medical, ) Plasma Chloride 103 Normal (applies [facility]GEN (St [Moles/volume] mmol/L to non-numeric [facility] in Serum or results) Medical, ) Plasma Carbon dioxide, 21 mmol/L Normal (applies MEDGEN ( St total to non-numeric [facility] [Moles/volume] results) Medical, ) in Serum or Plasma Calcium 9.8 mg/dL Normal (applies [facility]GEN (St [Moles/volume] to non-numeric [facility] in Urine results) [facility], ) collected for unspecified duration ID Date Data Source [id number] 10/09/2017 12:00:00 AM EDT [facility] ([facility], ) Name Value Range Interpretation Code Description Data Kimberly rce(s) Supporting Document(s ) ID Date Data Source [id number] 10/09/2017 12:00:00 AM EDT [facility] ([facility], ) Name Value Range Interpretation Description Data Sup porting Code Source(s) Document(s ) Hemoglobin 11.6 % Above high normal MEDGEN (St A1c/Hemoglobin [facility] .total in [facility], ) Blood ID Date Data Source [id number] 10/09/2017 12:00:00 AM EDT [facility] ( [facility], ) Name Value Range Interpretation Code Description Data Kimberly rce(s) Supporting Document(s ) PDF Image . Normal (applies to MEDGEN (St non-numeric results) [facility], ) ID Date Data Source [id number] 10/09/2017 12:00:00 AM EDT MED[facility] ( [facility], ) Name Value Range Interpretation Description Data Sup porting Code Source(s) Document(s ) Glucose 321 mg/dL Above high normal MED[facility] (St [Mass/volume] [facility] in Urine [facility], ) collected for unspecified duration Creatinine 0.99 Normal (applies MEDGEN (St [Interpretation mg/dL to non-numeric [facility]ony's ] in Urine results) [facility], ) Urea nitrogen 25 mg/dL Above high normal MEDGEN ( St [Mass/volume] [facility] in Serum or Medical, ) Plasma eGFR If 87 Normal (applies MEDGEN (St NonAfricn Am mL/min/1. to non-numeric [facility] 73 results) Medical, ) eGFR If Africn 101 Normal (applies MEDGEN (S t Am mL/min/1. to non-numeric [facility] 73 results) Medical, ) BUN/Creatinine 25 Above high normal MED[facility] (St Ratio [facility], ) Sodium 138 Normal (applies MEDGEN (St [Moles/volume] mmol/L to non-numeric [facility] in Serum or results) Medical, ) Plasma Potassium 5.6 Above high normal [facility] (St [Mass/volume] mmol/L [facility] in Blood Medical, ) Chloride 103 Normal (applies [facility]GEN (St [Moles/volume] mmol/L to non-numeric [facility] in Serum or results) Medical, ) Plasma Carbon dioxide, 21 mmol/L Normal (applies MEDGEN ( St total to non-numeric [facility] [Moles/volume] results) Medical, ) in Serum or Plasma Calcium 9.8 mg/dL Normal (applies [facility] (St [Moles/volume] to non-numeric [facility] in Urine results) [facility], ) collected for unspecified duration ID Date Data Source [id number] 10/09/2017 12:00:00 AM EDT [facility] ([facility], ) Name Value Range Interpretation Code Description Data Kimberly rce(s) Supporting Document(s ) ID Date Data Source [id number] 10/09/2017 12:00:00 AM EDT [facility] ([facility], ) Name Value Range Interpretation Description Data Sup porting Code Source(s) Document(s ) Hemoglobin 11.6 % Above high normal MED[facility] (St A1c/Hemoglobin [facility] .total in [facility], ) Blood ID Date Data Source [id number] 10/09/2017 12:00:00 AM EDT [facility] ([facility], ) Name Value Range Interpretation Code Description Data Kimberly rce(s) Supporting Document(s ) PDF Image . Normal (applies to MEDGEN (St non-numeric results) [facility]) ID Date Data Source [id number] 10/09/2017 12:00:00 AM EDT [facility] ([facility], ) Name Value Range Interpretation Description Data Sup porting Code Source(s) Document(s ) Glucose 321 mg/dL Above high normal [facility] (St [Mass/volume] [facility] in Urine [facility], ) collected for unspecified duration Urea nitrogen 25 mg/dL Above high normal [facility] ( St [Mass/volume] [facility] in Serum or Medical, ) Plasma eGFR If 87 Normal (applies MEDGEN (St NonAfricn Am mL/min/1. to non-numeric [facility] 73 results) [facility], ) Creatinine 0.99 Normal (applies [facility] (St [Interpretation mg/dL to non-numeric [facility]ony's ] in Urine results) [facility], ) eGFR If Africn 101 Normal (applies MEDGEN (S t Am mL/min/1. to non-numeric [facility] 73 results) [facility], ) Sodium 138 Normal (applies [facility]GEN (St [Moles/volume] mmol/L to non-numeric [facility] in Serum or results) Medical, ) Plasma BUN/Creatinine 25 Above high normal [facility] (St Ratio [facility]ony[facility], ) Chloride 103 Normal (applies [facility]GEN (St [Moles/volume] mmol/L to non-numeric [facility] in Serum or results) Medical, ) Plasma Potassium 5.6 Above high normal [facility] (St [Mass/volume] mmol/L [facility] in Blood [facility], ) Carbon dioxide, 21 mmol/L Normal (applies MEDGEN ( St total to non-numeric [facility] [Moles/volume] results) Medical, ) in Serum or Plasma Calcium 9.8 mg/dL Normal (applies MEDGEN (St [Moles/volume] to non-numeric [facility] in Urine results) Medical, ) collected for unspecified duration ID Date Data Source [id number] 10/09/2017 12:00:00 AM EDT [facility] ([facility], ) Name Value Range Interpretation Code Description Data Kimberly rce(s) Supporting Document(s ) ID Date Data Source [id number] 10/09/2017 12:00:00 AM EDT [facility] ([facility], ) Name Value Range Interpretation Description Data Sup porting Code Source(s) Document(s ) Hemoglobin 9.1 % Above high normal MED[facility] (St A1c/Hemoglobin [facility] .total in Medical, ) Blood Hemoglobin 9.0 % Above high normal [facility] (St A1c/Hemoglobin [facility] .total in Medical, ) Blood Hemoglobin 11.6 % Above high normal [facility] (St A1c/Hemoglobin [facility] .total in Medical, ) Blood Hemoglobin 7.0 % Above high normal [facility] (St A1c/Hemoglobin [facility] .total in [facility], ) Blood Hemoglobin 8.3 % Above high normal [facility] (St A1c/Hemoglobin [facility] .total in Medical, ) Blood Hemoglobin 9.4 % Above high normal [facility] (St A1c/Hemoglobin [facility] .total in Medical, ) Blood Hemoglobin 8.5 % Above high normal [facility] (St A1c/Hemoglobin [facility] .total in Medical, ) Blood ID Date Data Source [id number] 10/09/2017 12:00:00 AM EDT [facility] ([facility], ) Name Value Range Interpretation Description Data Sup porting Code Source(s) Document(s ) PDF Image . Normal (applies to MEDGEN (St non-numeric [facility] results) [facility], ) PDF Image . Normal (applies to MED[facility] (St non-numeric [facility] results) Medical, ) PDF Image . Normal (applies to MEDGEN (St non-numeric [facility] results) Medical, ) PDF . Normal (applies to MEDGEN (St non-numeric [facility] results) Medical, ) PDF Not applicable Normal (applies to MEDGEN (St non-numeric [facility] results) Medical, ) PDF Image . Normal (applies to MEDGEN (St non-numeric [facility] results) Medical, ) PDF Image . Normal (applies to MED[facility] (St non-numeric [facility] results) Medical, ) PDF Image . Normal (applies to MEDGEN (St non-numeric [facility] results) Medical, ) PDF Image . Normal (applies to MEDGEN (St non-numeric [facility] results) [facility], ) PDF Image . Normal (applies to MEDGEN (St non-numeric [facility]'s results) [facility], ) PDF Image . Normal (applies to MEDGEN (St non-numeric [facility]'s results) [facility], ) ID Date Data Source [id number] 10/09/2017 12:00:00 AM EDT [facility] ([facility], ) Name Value Range Interpretation Description Data Sup porting Code Source(s) Document(s ) Glucose 229 mg/dL Above high normal [facility] (St [Mass/volume] [facility] in Urine [facility], ) collected for unspecified duration Urea nitrogen 19 mg/dL Normal (applies [facility]GEN (St [Mass/volume] to non-numeric [facility] in Serum or results) Medical, ) Plasma Creatinine 1.04 Normal (applies MEDGEN (St [Interpretation mg/dL to non-numeric [facility]'s ] in Urine results) [facility], ) eGFR If 82 Normal (applies MEDGEN (St NonAfricn Am mL/min/1. to non-numeric [facility] 73 results) Medical, ) BUN/Creatinine 18 Normal (applies MEDGEN (S t Ratio to non-numeric [facility] results) [facility], ) eGFR If Africn 94 Normal (applies MEDGEN (S t Am mL/min/1. to non-numeric [facility] 73 results) Medical, ) Potassium 4.6 Normal (applies MEDGEN (St [Mass/volume] mmol/L to non-numeric [facility] in Blood results) [facility], ) Sodium 141 Normal (applies MEDGEN (St [Moles/volume] mmol/L to non-numeric [facility] in Serum or results) [facility], ) Plasma Chloride 104 Normal (applies MEDGEN (St [Moles/volume] mmol/L to non-numeric [facility] in Serum or results) [facility], ) Plasma Carbon dioxide, 24 mmol/L Normal (applies MEDGEN ( St total to non-numeric [facility] [Moles/volume] results) [facility], ) in Serum or Plasma Calcium 9.1 mg/dL Normal (applies MEDGEN (St [Moles/volume] to non-numeric [facility] in Urine results) [facility], ) collected for unspecified duration Glucose 216 mg/dL Above high normal MEDGEN (St [Mass/volume] [facility]ony[facility] in Urine [facility]) collected for unspecified duration Creatinine 2.10 Above high normal [facility] (St [Interpretation mg/dL Dony's ] in Urine [facility], ) Urea nitrogen 29 mg/dL Above high normal MEDGEN ( St [Mass/volume] [facility]ony[facility] in Serum or [facility], ) Plasma eGFR If 35 Below low normal MEDGEN (St NonAfricn Am mL/min/1. [facility]ony's 73 [facility]) eGFR If Africn 40 Below low normal MEDGEN ( St Am mL/min/1. [facility]ony[facility] 73 [facility]) BUN/Creatinine 14 Normal (applies MEDGEN (S t Ratio to non-numeric [facility] results) [facility], ) Potassium 3.9 Normal (applies [facility] (St [Mass/volume] mmol/L to non-numeric [facility] in Blood results) [facility], ) Sodium 144 Normal (applies [facility] (St [Moles/volume] mmol/L to non-numeric [facility] in Serum or results) [facility], ) Plasma Carbon dioxide, 23 mmol/L Normal (applies [facility] ( St total to non-numeric [facility]'s [Moles/volume] results) [facility], ) in Serum or Plasma Chloride 109 Above high normal [facility] (St [Moles/volume] mmol/L [facility] in Serum or [facility], ) Plasma Calcium 8.7 mg/dL Normal (applies [facility] (St [Moles/volume] to non-numeric [facility] in Urine results) [facility], ) collected for unspecified duration Glucose 129 mg/dL Above high normal [facility] (St [Mass/volume] [facility] in Urine [facility], ) collected for unspecified duration Urea nitrogen 39 mg/dL Above high normal [facility] ( St [Mass/volume] [facility] in Serum or [facility], ) Plasma Creatinine 2.54 Above high normal [facility] (St [Interpretation mg/dL Dony's ] in Urine [facility], ) eGFR If 28 Below low normal MED[facility] (St NonAfricn Am mL/min/1. Dony's 73 [facility], ) eGFR If Africn 32 Below low normal MEDGEN ( St Am mL/min/1. Donys 73 [facility], ) BUN/Creatinine 15 Normal (applies [facility]GEN (S t Ratio to non-numeric [facility]ony's results) [facility], ) Sodium 145 Above high normal [facility] (St [Moles/volume] mmol/L [facility] in Serum or [facility], ) Plasma Potassium 4.1 Normal (applies [facility] (St [Mass/volume] mmol/L to non-numeric [facility] in Blood results) [facility], ) Chloride 111 Above high normal [facility] (St [Moles/volume] mmol/L [facility] in Serum or [facility], ) Plasma Carbon dioxide, 20 mmol/L Normal (applies [facility]GEN ( St total to non-numeric [facility] [Moles/volume] results) [facility], ) in Serum or Plasma Glucose 321 mg/dL Above high normal [facility] (St [Mass/volume] [facility] in Urine [facility], ) collected for unspecified duration Calcium 8.2 mg/dL Below low normal [facility] (St [Moles/volume] [facility] in Urine [facility], ) collected for unspecified duration Creatinine 0.99 Normal (applies [facility] (St [Interpretation mg/dL to non-numeric [facility]oy[facility]'s ] in Urine results) [facility], ) Urea nitrogen 25 mg/dL Above high normal [facility] ( St [Mass/volume] [facility] in Serum or [facility], ) Plasma eGFR If Africn 101 Normal (applies [facility]GEN (S t Am mL/min/1. to non-numeric [facility]ony's 73 results) [facility], ) eGFR If 87 Normal (applies [facility] (St NonAfricn Am mL/min/1. to non-numeric [facility] 73 results) [facility], ) BUN/Creatinine 25 Above high normal [facility] (St Ratio Dony's [facility], ) Sodium 138 Normal (applies [facility] (St [Moles/volume] mmol/L to non-numeric [facility] in Serum or results) [facility], ) Plasma Potassium 5.6 Above high normal [facility] (St [Mass/volume] mmol/L [facility] in Blood [facility], ) Carbon dioxide, 21 mmol/L Normal (applies [facility] ( St total to non-numeric [facility] [Moles/volume] results) [facility], ) in Serum or Plasma Chloride 103 Normal (applies [facility] (St [Moles/volume] mmol/L to non-numeric [facility] in Serum or results) [facility], ) Plasma Calcium 9.8 mg/dL Normal (applies [facility] (St [Moles/volume] to non-numeric [facility] in Urine results) [facility], ) collected for unspecified duration Glucose 154 mg/dL Above high normal [facility] (St [Mass/volume] [facility] in Urine [facility], ) collected for unspecified duration Creatinine 1.94 Above high normal [facility] (St [Interpretation mg/dL Dony's ] in Urine [facility], ) Urea nitrogen 41 mg/dL Above high normal [facility] ( St [Mass/volume] [facility] in Serum or [facility], ) Plasma eGFR If Africn 45 Below low normal [facility]GEN ( St Am mL/min/1. Dony's 73 [facility], ) eGFR If 39 Below low normal [facility] (St NonAfricn Am mL/min/1. Dony' 73 [facility], ) Sodium 141 Normal (applies [facility] (St [Moles/volume] mmol/L to non-numeric [facility] in Serum or results) [facility], ) Plasma BUN/Creatinine 21 Above high normal [facility] (St Ratio Dony's [facility], ) Potassium 5.5 Above high normal [facility] (St [Mass/volume] mmol/L [facility]ony[facility] in Blood [facility], ) Chloride 105 Normal (applies [facility] (St [Moles/volume] mmol/L to non-numeric [facility] in Serum or results) [facility], ) Plasma Carbon dioxide, 21 mmol/L Normal (applies [facility] ( St total to non-numeric [facility] [Moles/volume] results) [facility], ) in Serum or Plasma Calcium 9.3 mg/dL Normal (applies [facility] (St [Moles/volume] to non-numeric [facility] in Urine results) [facility], ) collected for unspecified duration Glucose 88 mg/dL Normal (applies [facility] (St [Mass/volume] to non-numeric [facility] in Urine results) [facility], ) collected for unspecified duration Creatinine 1.45 Above high normal [facility] (St [Interpretation mg/dL Dony's ] in Urine [facility], ) Urea nitrogen 33 mg/dL Above high normal [facility] ( St [Mass/volume] [facility] in Serum or [facility], ) Plasma eGFR If Africn 63 Normal (applies MEDGEN (S t Am mL/min/1. to non-numeric Dony's 73 results) [facility]) eGFR If 55 Below low normal MED[facility] (St NonAfricn Am mL/min/1. Dony's 73 [facility], ) Sodium 143 Normal (applies [facility] (St [Moles/volume] mmol/L to non-numeric [facility] in Serum or results) [facility], ) Plasma BUN/Creatinine 23 Above high normal [facility] (St Ratio Dony's [facility], ) Chloride 106 Normal (applies [facility] (St [Moles/volume] mmol/L to non-numeric [facility] in Serum or results) [facility], ) Plasma Potassium 5.4 Above high normal [facility] (St [Mass/volume] mmol/L [facility] in Blood [facility], ) Carbon dioxide, 20 mmol/L Normal (applies [facility]GEN ( St total to non-numeric [facility] [Moles/volume] results) [facility], ) in Serum or Plasma Calcium 9.4 mg/dL Normal (applies [facility] (St [Moles/volume] to non-numeric [facility] in Urine results) [facility], ) collected for unspecified duration Glucose 238 mg/dL Above high normal [facility] (St [Mass/volume] [facility] in Urine [facility], ) collected for unspecified duration Urea nitrogen 21 mg/dL Normal (applies [facility] (St [Mass/volume] to non-numeric [facility] in Serum or results) [facility], ) Plasma Creatinine 1.13 Normal (applies [facility] (St [Interpretation mg/dL to non-numeric [facility]ony's ] in Urine results) [facility], ) eGFR If 74 Normal (applies MED[facility] (St NonAfricn Am mL/min/1. to non-numeric Dony's 73 results) [facility], ) BUN/Creatinine 19 Normal (applies MEDGEN (S t Ratio to non-numeric Dony's results) [facility], ) eGFR If Africn 85 Normal (applies [facility] (S t Am mL/min/1. to non-numeric [facility]'s 73 results) Medical, ) Sodium 140 Normal (applies [facility] (St [Moles/volume] mmol/L to non-numeric [facility] in Serum or results) Medical, ) Plasma Potassium 4.5 Normal (applies [facility] (St [Mass/volume] mmol/L to non-numeric [facility] in Blood results) [facility], ) Chloride 103 Normal (applies [facility] (St [Moles/volume] mmol/L to non-numeric [facility] in Serum or results) [facility], ) Plasma Calcium 9.8 mg/dL Normal (applies [facility] (St [Moles/volume] to non-numeric [facility] in Urine results) [facility], ) collected for unspecified duration Carbon dioxide, 19 mmol/L Below low normal [facility] (St total [facility]ony's [Moles/volume] [facility]) in Serum or Plasma Urea nitrogen 28 mg/dL Above high normal [facility] ( St [Mass/volume] [facility] in Serum or [facility], ) Plasma Glucose 320 mg/dL Above high normal [facility] (St [Mass/volume] [facility] in Urine [facility]) collected for unspecified duration eGFR If 57 Below low normal [facility] (St NonAfricn Am mL/min/1. Dony's 73 [facility], ) Creatinine 1.40 Above high normal [facility] (St [Interpretation mg/dL Dony's ] in Urine [facility], ) BUN/Creatinine 20 Normal (applies MEDGEN (S t Ratio to non-numeric Dony's results) [facility], ) eGFR If Africn 65 Normal (applies MEDGEN (S t Am mL/min/1. to non-numeric Dony's 73 results) [facility], ) Sodium 141 Normal (applies [facility] (St [Moles/volume] mmol/L to non-numeric [facility]ony[facility] in Serum or results) [facility], ) Plasma Potassium 4.3 Normal (applies [facility] (St [Mass/volume] mmol/L to non-numeric [facility]ony[facility] in Blood results) [facility], ) Chloride 103 Normal (applies [facility] (St [Moles/volume] mmol/L to non-numeric [facility] in Serum or results) Medical, ) Plasma Calcium 8.9 mg/dL Normal (applies [facility] (St [Moles/volume] to non-numeric [facility] in Urine results) [facility], ) collected for unspecified duration Carbon dioxide, 22 mmol/L Normal (applies [facility] ( St total to non-numeric [facility] [Moles/volume] results) [facility], ) in Serum or Plasma ID Date Data Source [id number] 10/09/2017 12:00:00 AM EDT [facility] ([facility], ) Name Value Range Interpretation Code Description Data Kimberly rce(s) Supporting Document(s ) ID Date Data Source [id number] 10/09/2017 12:00:00 AM EDT [facility] ([facility], ) Name Value Range Interpretation Description Data Sup porting Code Source(s) Document(s ) Hemoglobin 11.6 % Above high normal [facility] (St A1c/Hemoglobin [facility] .total in Medical, ) Blood ID Date Data Source [id number] 10/09/2017 12:00:00 AM EDT [facility] ([facility], ) Name Value Range Interpretation Code Description Data Kimberly rce(s) Supporting Document(s ) PDF Image . Normal (applies to [facility] (St non-numeric results) [facility], ) ID Date Data Source [id number] 10/09/2017 12:00:00 AM EDT [facility] ([facility], ) Name Value Range Interpretation Description Data Sup porting Code Source(s) Document(s ) Glucose 321 mg/dL Above high normal [facility] (St [Mass/volume] [facility] in Urine Medical, ) collected for unspecified duration Urea nitrogen 25 mg/dL Above high normal [facility] ( St [Mass/volume] [facility] in Serum or Medical, ) Plasma Creatinine 0.99 Normal (applies [facility] (St [Interpretation mg/dL to non-numeric Dnoy's ] in Urine results) Medical, ) eGFR If 87 Normal (applies [facility] (St NonAfricn Am mL/min/1. to non-numeric [facility]'s 73 results) Medical, ) eGFR If Africn 101 Normal (applies [facility] (S t Am mL/min/1. to non-numeric [facility]ony's 73 results) Medical, ) BUN/Creatinine 25 Above high normal [facility] (St Ratio Dony's [facility], ) Sodium 138 Normal (applies [facility] (St [Moles/volume] mmol/L to non-numeric [facility] in Serum or results) Medical, ) Plasma Potassium 5.6 Above high normal [facility] (St [Mass/volume] mmol/L [facility]ony[facility] in Blood [facility], ) Chloride 103 Normal (applies [facility] (St [Moles/volume] mmol/L to non-numeric [facility] in Serum or results) Medical, ) Plasma Carbon dioxide, 21 mmol/L Normal (applies [facility] ( St total to non-numeric [facility] [Moles/volume] results) [facility], ) in Serum or Plasma Calcium 9.8 mg/dL Normal (applies [facility] (St [Moles/volume] to non-numeric [facility]ony[facility] in Urine results) [facility], ) collected for unspecified duration ID Date Data Source [id number] 10/09/2017 12:00:00 AM EDT [facility] ( [facility], ) Name Value Range Interpretation Code Description Data Kimberly rce(s) Supporting Document(s ) ID Date Data Source [id number] 10/09/2017 12:00:00 AM EDT [facility] ([facility], ) Name Value Range Interpretation Description Data Sup porting Code Source(s) Document(s ) Hemoglobin 11.6 % Above high normal [facility] (St A1c/Hemoglobin Dony[facility] .total in [facility], ) Blood ID Date Data Source [id number] 10/09/2017 12:00:00 AM EDT [facility] ([facility], ) Name Value Range Interpretation Code Description Data Kimberly rce(s) Supporting Document(s ) PDF Image . Normal (applies to [facility] (St non-numeric results) [facility], ) ID Date Data Source [id number] 10/09/2017 12:00:00 AM EDT [facility] ([facility], ) Name Value Range Interpretation Description Data Sup porting Code Source(s) Document(s ) Glucose 321 mg/dL Above high normal [facility] (St [Mass/volume] [facility] in Urine [facility], ) collected for unspecified duration Urea nitrogen 25 mg/dL Above high normal [facility] ( St [Mass/volume] [facility] in Serum or Medical, ) Plasma Creatinine 0.99 Normal (applies [facility] (St [Interpretation mg/dL to non-numeric [facility]ony's ] in Urine results) Medical, ) eGFR If 87 Normal (applies [facility] (St NonAfricn Am mL/min/1. to non-numeric [facility] 73 results) Medical, ) eGFR If Africn 101 Normal (applies [facility] (S t Am mL/min/1. to non-numeric [facility] 73 results) Medical, ) BUN/Creatinine 25 Above high normal [facility] (St Ratio [facility], ) Sodium 138 Normal (applies [facility] (St [Moles/volume] mmol/L to non-numeric [facility] in Serum or results) Medical, ) Plasma Chloride 103 Normal (applies [facility] (St [Moles/volume] mmol/L to non-numeric [facility] in Serum or results) [facility], ) Plasma Potassium 5.6 Above high normal [facility] (St [Mass/volume] mmol/L [facility]ony[facility] in Blood [facility], ) Carbon dioxide, 21 mmol/L Normal (applies [facility] ( St total to non-numeric [facility] [Moles/volume] results) [facility], ) in Serum or Plasma Calcium 9.8 mg/dL Normal (applies [facility] (St [Moles/volume] to non-numeric [facility] in Urine results) [facility], ) collected for unspecified duration ID Date Data Source [id number] 10/09/2017 12:00:00 AM EDT [facility] ([facility], ) Name Value Range Interpretation Code Description Data Kimberly rce(s) Supporting Document(s ) ID Date Data Source [id number] 10/09/2017 12:00:00 AM EDT [facility] ([facility], ) Name Value Range Interpretation Description Data Sup porting Code Source(s) Document(s ) Hemoglobin 11.6 % Above high normal [facility] (St A1c/Hemoglobin [facility]ony[facility] .total in [facility], ) Blood ID Date Data Source [id number] 10/09/2017 12:00:00 AM EDT [facility] ([facility], ) Name Value Range Interpretation Code Description Data Kimberly rce(s) Supporting Document(s ) PDF Image . Normal (applies to [facility] (St non-numeric results) [facility], ) ID Date Data Source [id number] 10/09/2017 12:00:00 AM EDT [facility] ([facility], ) Name Value Range Interpretation Description Data Sup porting Code Source(s) Document(s ) Glucose 321 mg/dL Above high normal [facility] (St [Mass/volume] [facility] in Urine [facility], ) collected for unspecified duration Creatinine 0.99 Normal (applies [facility] (St [Interpretation mg/dL to non-numeric Dony's ] in Urine results) Medical, ) Urea nitrogen 25 mg/dL Above high normal [facility] ( St [Mass/volume] [facility] in Serum or [facility], ) Plasma eGFR If 87 Normal (applies [facility] (St NonAfricn Am mL/min/1. to non-numeric [facility] 73 results) Medical, ) BUN/Creatinine 25 Above high normal [facility] (St Ratio Dony's [facility], ) eGFR If Africn 101 Normal (applies [facility] (S t Am mL/min/1. to non-numeric [facility]ony's 73 results) Medical, ) Potassium 5.6 Above high normal [facility] (St [Mass/volume] mmol/L [facility] in Blood [facility], ) Sodium 138 Normal (applies [facility] (St [Moles/volume] mmol/L to non-numeric [facility] in Serum or results) Medical, ) Plasma Chloride 103 Normal (applies [facility] (St [Moles/volume] mmol/L to non-numeric [facility] in Serum or results) Medical, ) Plasma Calcium 9.8 mg/dL Normal (applies [facility] (St [Moles/volume] to non-numeric [facility] in Urine results) Medical, ) collected for unspecified duration Carbon dioxide, 21 mmol/L Normal (applies [facility] ( St total to non-numeric [facility] [Moles/volume] results) Medical, ) in Serum or Plasma Procedure Social History Code Duration Value Status Description Data Source(s ) Smoking 12/11/2019 active tobacco completed active tobacco [facility] (St 12:00:00 AM use smokes 1 use smokes 1 ppd [facility], EDT ppd for 40 for 40 years ) years alcohol; alcohol; stopped stopped drinking 3 years drinking 3 ago drugs; denies years ago drugs; denies Smoking 12/11/2019 Unknown if completed Unknown if ever [facility] (S t 12:00:00 AM ever smoked smoked [facility], EDT PC) Smoking 12/11/2019 active tobacco completed active tobacco [facility] (St 12:00:00 AM use smokes 1 use smokes 1 ppd [facility], EDT ppd for 40 for 40 years PC) years alcohol; alcohol; stopped stopped drinking 3 years drinking 3 ago drugs; denies years ago drugs; denies Smoking 12/11/2019 Unknown if completed Unknown if ever [facility] (S t 12:00:00 AM ever smoked smoked [facility], EDT PC) Smoking 12/10/2019 active tobacco completed active tobacco [facility] (St 12:00:00 AM use smokes 1 use smokes 1 ppd [facility], EDT ppd for 40 for 40 years PC) years alcohol; alcohol; stopped stopped drinking 3 years drinking 3 ago drugs; denies years ago drugs; denies Smoking 12/10/2019 Unknown if completed Unknown if ever [facility] (S t 12:00:00 AM ever smoked smoked [facility], EDT PC) Smoking 12/09/2019 active tobacco completed active tobacco [facility] (St 12:00:00 AM use smokes 1 use smokes 1 ppd [facility], EDT ppd for 40 for 40 years PC) years alcohol; alcohol; stopped stopped drinking 3 years drinking 3 ago drugs; denies years ago drugs; denies Smoking 12/09/2019 Unknown if completed Unknown if ever [facility] (S t 12:00:00 AM ever smoked smoked [facility], EDT PC) Smoking 11/28/2019 active tobacco completed active tobacco [facility] (St 12:00:00 AM use smokes 1 use smokes 1 ppd [facility], EDT ppd for 40 for 40 years PC) years alcohol; alcohol; stopped stopped drinking 3 years drinking 3 ago drugs; denies years ago drugs; denies Smoking 11/28/2019 Unknown if completed Unknown if ever [facility] (S t 12:00:00 AM ever smoked smoked [facility], EDT PC) Smoking 11/28/2019 active tobacco completed active tobacco [facility] (St 12:00:00 AM use smokes 1 use smokes 1 ppd [facility], EDT ppd for 40 for 40 years PC) years alcohol; alcohol; stopped stopped drinking 3 years drinking 3 ago drugs; denies years ago drugs; denies Smoking 11/28/2019 Unknown if completed Unknown if ever [facility] (S t 12:00:00 AM ever smoked smoked [facility], EDT PC) Smoking 11/28/2019 active tobacco completed active tobacco [facility] (St 12:00:00 AM use smokes 1 use smokes 1 ppd [facility], EDT ppd for 40 for 40 years PC) years alcohol; alcohol; stopped stopped drinking 3 years drinking 3 ago drugs; denies years ago drugs; denies Smoking 11/28/2019 Unknown if completed Unknown if ever [facility] (S t 12:00:00 AM ever smoked smoked [facility], EDT PC) Smoking 11/25/2019 active tobacco completed active tobacco [facility] (St 12:00:00 AM use smokes 1 use smokes 1 ppd [facility], EDT ppd for 40 for 40 years PC) years alcohol; alcohol; stopped stopped drinking 3 years drinking 3 ago drugs; denies years ago drugs; denies Smoking 11/25/2019 Unknown if completed Unknown if ever [facility] (S t 12:00:00 AM ever smoked smoked [facility], EDT PC) Smoking 11/25/2019 active tobacco completed active tobacco [facility] (St 12:00:00 AM use smokes 1 use smokes 1 ppd [facility], EDT ppd for 40 for 40 years PC) years alcohol; alcohol; stopped stopped drinking 3 years drinking 3 ago drugs; denies years ago drugs; denies Smoking 11/25/2019 Unknown if completed Unknown if ever [facility] (S t 12:00:00 AM ever smoked smoked [facility], EDT PC) Smoking 11/25/2019 active tobacco completed active tobacco [facility] (St 12:00:00 AM use smokes 1 use smokes 1 ppd [facility], EDT ppd for 40 for 40 years PC) years alcohol; alcohol; stopped stopped drinking 3 years drinking 3 ago drugs; denies years ago drugs; denies Smoking 11/25/2019 Unknown if completed Unknown if ever [facility] (S t 12:00:00 AM ever smoked smoked [facility], EDT PC) Smoking 11/25/2019 active tobacco completed active tobacco [facility] (St 12:00:00 AM use smokes 1 use smokes 1 ppd [facility], EDT ppd for 40 for 40 years PC) years alcohol; alcohol; stopped stopped drinking 3 years drinking 3 ago drugs; denies years ago drugs; denies Smoking 11/25/2019 Unknown if completed Unknown if ever [facility] (S t 12:00:00 AM ever smoked smoked [facility], EDT PC) Smoking 11/06/2019 active tobacco completed active tobacco [facility] (St 12:00:00 AM use smokes 1 use smokes 1 ppd [facility], EDT ppd for 40 for 40 years PC) years alcohol; alcohol; stopped stopped drinking 3 years drinking 3 ago drugs; denies years ago drugs; denies Smoking 11/06/2019 Unknown if completed Unknown if ever [facility] (S t 12:00:00 AM ever smoked smoked [facility], EDT PC) Smoking 11/06/2019 active tobacco completed active tobacco [facility] (St 12:00:00 AM use smokes 1 use smokes 1 ppd [facility], EDT ppd for 40 for 40 years PC) years alcohol; alcohol; stopped stopped drinking 3 years drinking 3 ago drugs; denies years ago drugs; denies Smoking 11/06/2019 Unknown if completed Unknown if ever [facility] (S t 12:00:00 AM ever smoked smoked [facility]) Smoking 11/04/2019 Daily Smoker completed Daily Smoker [facility] Smoking 11/03/2019 Daily Smoker completed Daily Smoker [facility] 10:28:00 PM [facility]T Smoking 11/03/2019 Daily Smoker completed Daily Smoker [facility] 07:59:00 PM [facility] EDT Smoking 11/03/2019 Daily Smoker completed Daily Smoker [facility] 02:42:00 PM [facility]T Smoking 11/03/2019 Daily Smoker completed Daily Smoker [facility] 01:20:00 PM [facility] EDT Smoking 11/03/2019 Daily Smoker completed Daily Smoker [facility] 01:20:00 PM [facility] EDT Smoking 10/30/2019 active tobacco completed active tobacco MED[facility] (St 12:00:00 AM use smokes 1 use smokes 1 ppd [facility], [facility] ppd for 40 for 40 years PC) years alcohol; alcohol; stopped stopped drinking 3 years drinking 3 ago drugs; denies years ago drugs; denies Smoking 10/30/2019 Unknown if completed Unknown if ever MEDGEN (S t 12:00:00 AM ever smoked smoked [facility], [facility]) Smoking 10/17/2019 active tobacco completed active tobacco [facility] (St 12:00:00 AM use smokes 1 use smokes 1 ppd [facility], EDT ppd for 40 for 40 years ) years alcohol; alcohol; stopped stopped drinking 3 years drinking 3 ago drugs; denies years ago drugs; denies Smoking 10/17/2019 Unknown if completed Unknown if ever MEDGEN (S t 12:00:00 AM ever smoked smoked [facility], [facility]) Caffeine Use 07/13/2018 completed NEXTGEN ([facility] Details 12:00:00 AM [facility]) Smoking 07/13/2018 Unknown if completed Unknown if ever NEXTGEN ( [facility] 12:[facility]:00 AM ever smoked smoked [facility]) Smoking 06/15/2018 Daily Smoker completed Daily Smoker [facility] 11:55:00 PM [facility] EST Smoking 06/15/2018 Daily Smoker completed Daily Smoker [facility] 11:55:00 PM [facility] EST Smoking 06/15/2018 Daily Smoker completed Daily Smoker [facility] 06:32:00 PM [facility] EST Smoking 06/15/2018 Daily Smoker completed Daily Smoker [facility] 05:19:00 PM [facility] EST Smoking Unknown if completed Unknown if ever [facility] ever smoked smoked [facility] Alcohol Use completed NEXTGEN (Ismael t Details [facility]) Vital Signs ID Date Data Source UNK Name Value Range Interpretation Code Description Data Source(s) Heart rate 78 /min 78 /min MEDGEN ([facility] , ) Respiratory rate 14 /min 14 /min MEDGEN ( [facility]) Diastolic blood 90 mm[Hg] 90 mm[Hg] MEDGEN (S t pressure [facility]) Systolic blood 180 mm[Hg] 180 mm[Hg] MEDGEN ([facility]) Body weight 149 lb 149 lb MEDGEN ([facility]) Heart rate 78 /min 78 /min MEDGEN ([facility]) Respiratory rate 14 /min 14 /min MEDGEN ( [facility]) Diastolic blood 90 mm[Hg] 90 mm[Hg] MEDGEN (S t pressure [facility] , ) Systolic blood 180 mm[Hg] 180 mm[Hg] MEDGEN ([facility] , ) Body weight 149 lb 149 lb MEDGEN ([facility] , ) Heart rate 68 /min 68 /min MEDGEN ([facility] , ) Respiratory rate 16 /min 16 /min MEDGEN ( [facility] , ) Inhaled oxygen 100 % 100 % MEDGEN ([facility], ) Diastolic blood 91 mm[Hg] 91 mm[Hg] MEDGEN (S t pressure [facility] , ) Systolic blood 172 mm[Hg] 172 mm[Hg] MEDGEN ([facility] , ) Body weight 149 lb 149 lb MEDGEN ([facility] , ) Heart rate 68 /min 68 /min MEDGEN ([facility] [place] , ) Respiratory rate 16 /min 16 /min MEDGEN ( [facility] , ) Inhaled oxygen 100 % 100 % MEDGEN ([facility], ) Diastolic blood 91 mm[Hg] 91 mm[Hg] MEDGEN (S t pressure [facility] , ) Systolic blood 172 mm[Hg] 172 mm[Hg] MEDGEN ([facility] , ) Body weight 149 lb 149 lb MEDGEN ([facility] , ) Heart rate 68 /min 68 /min MEDGEN ([facility] , ) Respiratory rate 16 /min 16 /min MEDGEN ( [facility] , ) Inhaled oxygen 100 % 100 % MEDGEN ([facility], ) Diastolic blood 91 mm[Hg] 91 mm[Hg] MEDGEN (S t pressure [facility] , ) Systolic blood 172 mm[Hg] 172 mm[Hg] MEDGEN ([facility] , ) Body weight 149 lb 149 lb MEDGEN ([facility] , ) Heart rate 68 /min 68 /min MEDGEN ([facility] , ) Respiratory rate 16 /min 16 /min MEDGEN ( [facility] , ) Inhaled oxygen 100 % 100 % MEDGEN ([facility], ) Diastolic blood 91 mm[Hg] 91 mm[Hg] MEDGEN (S t pressure [facility] , ) Systolic blood 172 mm[Hg] 172 mm[Hg] MEDGEN (St pressure [facility] , ) Body weight 149 lb 149 lb MEDGEN ([facility] , ) Heart rate 70 /min 70 /min MEDGEN ([facility] , ) Respiratory rate 12 /min 12 /min MEDGEN ( [place] , ) Inhaled oxygen 98 % 98 % MEDGEN (St concentration [facility], ) Diastolic blood 100 mm[Hg] 100 mm[Hg] MEDGEN (S t pressure [facility] , ) Systolic blood 200 mm[Hg] 200 mm[Hg] MEDGEN (St pressure [facility] , ) Body weight 160 lb 160 lb MEDGEN ([facility] , ) Diastolic blood 100 mm[Hg] 100 mm[Hg] MEDGEN (S t pressure [facility] , ) Systolic blood 200 mm[Hg] 200 mm[Hg] MEDGEN ([facility] , ) Body weight 160 lb 160 lb MEDGEN ([facility] , ) Heart rate 70 /min 70 /min MED[facility] ([facility] , ) Respiratory rate 12 /min 12 /min MEDGEN ( [facility] , ) Inhaled oxygen 98 % 98 % MEDGEN ([facility], ) Heart rate 70 /min 70 /min MED[facility] ([facility] , ) Respiratory rate 12 /min 12 /min MEDGEN ( [facility] , ) Inhaled oxygen 98 % 98 % MEDGEN (St concentration [facility], ) Diastolic blood 100 mm[Hg] 100 mm[Hg] MEDGEN (S t pressure [facility] , ) Systolic blood 200 mm[Hg] 200 mm[Hg] MEDGEN ([facility] , ) Body weight 160 lb 160 lb MEDGEN ([place] , ) Heart rate 70 /min 70 /min MED[facility] ([facility] , ) Respiratory rate 12 /min 12 /min MEDGEN ( [place] , ) Inhaled oxygen 98 % 98 % MEDGEN (St concentration [facility], ) Diastolic blood 100 mm[Hg] 100 mm[Hg] MEDGEN (S t pressure [facility] , ) Systolic blood 200 mm[Hg] 200 mm[Hg] MEDGEN ([facility] , ) Body weight 160 lb 160 lb MEDGEN ([facility]) Heart rate 70 /min 70 /min MEDGEN ([facility] , ) Respiratory rate 12 /min 12 /min MEDGEN ( [facility] , ) Inhaled oxygen 98 % 98 % MEDGEN ([facility], ) Diastolic blood 100 mm[Hg] 100 mm[Hg] MEDGEN (S t pressure [facility] , ) Systolic blood 200 mm[Hg] 200 mm[Hg] MEDGEN ([facility] , ) Body weight 160 lb 160 lb MEDGEN ([facility]) Heart rate 70 /min 70 /min MEDGEN ([facility] , ) Respiratory rate 12 /min 12 /min MEDGEN ( [facility]) Inhaled oxygen 98 % 98 % MEDGEN ([facility], ) Diastolic blood 100 mm[Hg] 100 mm[Hg] MEDGEN (S t pressure [facility] , ) Systolic blood 200 mm[Hg] 200 mm[Hg] MEDGEN ([facility] , ) Body weight 160 lb 160 lb MEDGEN ([facility]) Heart rate 70 /min 70 /min MEDGEN ([facility]) Respiratory rate 12 /min 12 /min MEDGEN ( [facility] , ) Inhaled oxygen 98 % 98 % MEDGEN ([facility], ) Diastolic blood 100 mm[Hg] 100 mm[Hg] MEDGEN (S t pressure [facility] , ) Systolic blood 200 mm[Hg] 200 mm[Hg] MEDGEN ([facility] , ) Body weight 160 lb 160 lb MEDGEN ([facility]) Heart rate 70 /min 70 /min MEDGEN ([facility]) Respiratory rate 12 /min 12 /min MEDGEN ( [facility] , ) Diastolic blood 100 mm[Hg] 100 mm[Hg] MEDGEN (S t pressure [facility] , ) Systolic blood 200 mm[Hg] 200 mm[Hg] MEDGEN ([facility] , ) Heart rate 70 /min 70 /min MEDGEN ([facility] , ) Respiratory rate 12 /min 12 /min MEDGEN ( [facility] , ) Inhaled oxygen 98 % 98 % MEDGEN ([facility], ) Diastolic blood 100 mm[Hg] 100 mm[Hg] MEDGEN (S t pressure [facility] , ) Systolic blood 200 mm[Hg] 200 mm[Hg] MEDGEN ([facility] , ) Body weight 160 lb 160 lb MEDGEN ([facility] , ) Heart rate 70 /min 70 /min MEDGEN ([facility] , ) Respiratory rate 12 /min 12 /min MEDGEN ( [facility] , ) Inhaled oxygen 98 % 98 % MEDGEN ([facility], ) Diastolic blood 100 mm[Hg] 100 mm[Hg] MEDGEN (S t pressure [facility] , ) Systolic blood 200 mm[Hg] 200 mm[Hg] MEDGEN ([facility] , ) Body weight 160 lb 160 lb MEDGEN ([facility] , ) Heart rate 70 /min 70 /min MEDGEN ([place] , ) Respiratory rate 12 /min 12 /min MEDGEN ( [facility] , ) Diastolic blood 100 mm[Hg] 100 mm[Hg] MEDGEN (S t pressure [facility] , ) Systolic blood 200 mm[Hg] 200 mm[Hg] MEDGEN ([facility] , ) Heart rate 68 /min 68 /min MEDGEN ([facility]) Inhaled oxygen 96 % 96 % MEDGEN ([facility], ) Body mass index 25.2 kg/m2 25.2 kg/m2 MEDGEN (S t (BMI) [Ratio] [facility], ) Diastolic blood 90 mm[Hg] 90 mm[Hg] MEDGEN (S t pressure [facility] , ) Systolic blood 154 mm[Hg] 154 mm[Hg] MEDGEN ([facility] , ) Body weight 156 lb 156 lb MEDGEN ([facility]) Body height 66 in 66 in MEDGEN ([facility]) Heart rate 68 /min 68 /min MEDGEN ([facility]) Inhaled oxygen 96 % 96 % MEDGEN ([facility], ) Body mass index 25.2 kg/m2 25.2 kg/m2 MEDGEN (S t (BMI) [Ratio] [facility], ) Diastolic blood 90 mm[Hg] 90 mm[Hg] MEDGEN (S t pressure [facility]) Systolic blood 154 mm[Hg] 154 mm[Hg] MEDGEN ([facility]) Body weight 156 lb 156 lb MEDGEN ([facility]) Body height 66 in 66 in MEDGEN ([facility]) Heart rate 68 /min 68 /min MEDGEN ([facility]) Inhaled oxygen 96 % 96 % MEDGEN ([facility], ) Body mass index 25.2 kg/m2 25.2 kg/m2 MEDGEN (S t (BMI) [Ratio] [facility], ) Diastolic blood 90 mm[Hg] 90 mm[Hg] MEDGEN (S t pressure [facility]) Systolic blood 154 mm[Hg] 154 mm[Hg] MEDGEN ([facility]) Body weight 156 lb 156 lb MEDGEN ([facility]) Body height 66 in 66 in MEDGEN ([facility]) Heart rate 68 /min 68 /min MEDGEN ([facility]) Inhaled oxygen 96 % 96 % MEDGEN ([facility], ) Body mass index 25.2 kg/m2 25.2 kg/m2 MEDGEN (S t (BMI) [Ratio] [facility], ) Diastolic blood 90 mm[Hg] 90 mm[Hg] MEDGEN (S t pressure [facility]) Systolic blood 154 mm[Hg] 154 mm[Hg] MEDGEN ([facility]) Body weight 156 lb 156 lb MEDGEN ([facility]) Body height 66 in 66 in MEDGEN ([facility]) Heart rate 68 /min 68 /min MEDGEN ([facility]) Inhaled oxygen 96 % 96 % MEDGEN ([facility]) Body mass index 25.2 kg/m2 25.2 kg/m2 MEDGEN (S t (BMI) [Ratio] [facility], ) Diastolic blood 90 mm[Hg] 90 mm[Hg] MEDGEN (S t pressure [facility]) Systolic blood 154 mm[Hg] 154 mm[Hg] MEDGEN ([facility] , ) Body weight 156 lb 156 lb MEDGEN ([facility]) Body height 66 in 66 in MEDGEN ([facility]) Heart rate 68 /min 68 /min MEDGEN ([facility]) Inhaled oxygen 96 % 96 % MEDGEN ([facility], ) Body mass index 25.2 kg/m2 25.2 kg/m2 MEDGEN (S t (BMI) [Ratio] [facility], ) Diastolic blood 90 mm[Hg] 90 mm[Hg] MEDGEN (S t pressure [facility]) Systolic blood 154 mm[Hg] 154 mm[Hg] MEDGEN ([facility]) Body weight 156 lb 156 lb MEDGEN ([facility]) Body height 66 in 66 in MEDGEN ([facility]) Heart rate 68 /min 68 /min MEDGEN ([facility]) Inhaled oxygen 96 % 96 % MEDGEN ([facility], ) Body mass index 25.2 kg/m2 25.2 kg/m2 MEDGEN (S t (BMI) [Ratio] [facility], ) Diastolic blood 90 mm[Hg] 90 mm[Hg] MEDGEN (S t pressure [facility] , ) Systolic blood 154 mm[Hg] 154 mm[Hg] MEDGEN ([facility] , ) Body weight 156 lb 156 lb MEDGEN ([facility]) Body height 66 in 66 in MEDGEN ([facility]) Heart rate 68 /min 68 /min MEDGEN ([facility]) Inhaled oxygen 96 % 96 % MEDGEN ([facility], ) Body mass index 25.2 kg/m2 25.2 kg/m2 MEDGEN (S t (BMI) [Ratio] [facility], ) Diastolic blood 90 mm[Hg] 90 mm[Hg] MEDGEN (S t pressure [facility]) Systolic blood 154 mm[Hg] 154 mm[Hg] MEDGEN ([facility]) Body weight 156 lb 156 lb MEDGEN ([facility]) Body height 66 in 66 in MEDGEN ([facility]) Heart rate 68 /min 68 /min MEDGEN ([facility]) Inhaled oxygen 96 % 96 % MEDGEN ([facility], ) Body mass index 25.2 kg/m2 25.2 kg/m2 MEDGEN (S t (BMI) [Ratio] [facility], ) Diastolic blood 90 mm[Hg] 90 mm[Hg] MEDGEN (S t pressure [facility]) Systolic blood 154 mm[Hg] 154 mm[Hg] MEDGEN ([facility]) Body weight 156 lb 156 lb MEDGEN ([facility]) Body height 66 in 66 in MEDGEN ([facility]) Heart rate 68 /min 68 /min MEDGEN ([facility]) Inhaled oxygen 96 % 96 % MEDGEN ([facility]) Body mass index 25.2 kg/m2 25.2 kg/m2 MEDGEN (S t (BMI) [Ratio] [facility]) Diastolic blood 90 mm[Hg] 90 mm[Hg] MEDGEN (S t pressure [facility]) Systolic blood 154 mm[Hg] 154 mm[Hg] MEDGEN ([facility]) Body weight 156 lb 156 lb MEDGEN ([facility]) Body height 66 in 66 in MEDGEN ([facility]) Heart rate 68 /min 68 /min MEDGEN ([facility]) Inhaled oxygen 96 % 96 % MEDGEN ([facility]) Body mass index 25.2 kg/m2 25.2 kg/m2 MEDGEN (S t (BMI) [Ratio] [facility], ) Diastolic blood 90 mm[Hg] 90 mm[Hg] MEDGEN (S t pressure [facility]) Systolic blood 154 mm[Hg] 154 mm[Hg] MEDGEN ([facility] , ) Body weight 156 lb 156 lb MEDGEN ([facility]) Body height 66 in 66 in MEDGEN ([facility]) Heart rate 68 /min 68 /min MEDGEN ([facility]) Inhaled oxygen 96 % 96 % MEDGEN ([facility], ) Body mass index 25.2 kg/m2 25.2 kg/m2 MEDGEN (S t (BMI) [Ratio] [facility], ) Diastolic blood 90 mm[Hg] 90 mm[Hg] MEDGEN (S t pressure [facility]) Systolic blood 154 mm[Hg] 154 mm[Hg] MEDGEN ([facility]) Body weight 156 lb 156 lb MEDGEN ([facility]) Body height 66 in 66 in MEDGEN ([facility]) Heart rate 68 /min 68 /min MEDGEN ([facility]) Inhaled oxygen 96 % 96 % MEDGEN ([facility], ) Body mass index 25.2 kg/m2 25.2 kg/m2 MEDGEN (S t (BMI) [Ratio] [facility], ) Diastolic blood 90 mm[Hg] 90 mm[Hg] MEDGEN (S t pressure [facility] , ) Systolic blood 154 mm[Hg] 154 mm[Hg] MEDGEN ([facility]) Body weight 156 lb 156 lb MEDGEN ([facility]) Body height 66 in 66 in [facility]) Body temperature 36.447313 [id number] [facility] Respiratory rate 18 /min 18 /min [facility] Heart rate 80 /min 80 /min [facility] Diastolic blood 113 mm[Hg] 113 mm[Hg] [facility] Systolic blood 227 mm[Hg] 227 mm[Hg] [facility] Body weight 71.871638 71.054245 kg [facility] hs Measured kg [facility] Body temperature 36.399395 36.993840 [facility] Respiratory rate 18 /min 18 /min [facility] Heart rate 77 /min 77 /min [facility] Diastolic blood 109 mm[Hg] 109 mm[Hg] [facility] Systolic blood 209 mm[Hg] 209 mm[Hg] [facility] Body temperature 36.212464 36.133402 [facility] Respiratory rate 18 /min 18 /min [facility] Heart rate 81 /min 81 /min [facility] Diastolic blood 101 mm[Hg] 101 mm[Hg] [facility] Systolic blood 188 mm[Hg] 188 mm[Hg] [facility] Body temperature 36.577572 36.697785 [facility] Respiratory rate 20 /min 20 /min [facility] Heart rate 74 /min 74 /min [facility] Diastolic blood 97 mm[Hg] 97 mm[Hg] [facility] Systolic blood 165 mm[Hg] 165 mm[Hg] [facility] Body weight 71.773769 71.338186 [facility] Body temperature 37.557041 37.195809 [facility] Respiratory rate 20 /min 20 /min [facility] Heart rate 69 /min 69 /min [facility] Diastolic blood 100 mm[Hg] 100 mm[Hg] [facility] Systolic blood 163 mm[Hg] 163 mm[Hg] [facility] Body temperature 36.550760 36.323253 [facility] Respiratory rate 18 /min 18 /min [facility] Heart rate 71 /min 71 /min [facility] Diastolic blood 98 mm[Hg] 98 mm[Hg] [facility] Systolic blood 179 mm[Hg] 179 mm[Hg] [facility] Body weight 70.572375 70.227458 kg [facility] hs Measured kg [facility] Body height 167.751570 167.151932 cm [facility] Body mass index 24.91 kg/m2 24.91 kg/m2 [facility] osep (BMI) [Ratio] [facility] ter Body temperature 36.289717 36.164272 [facility] Respiratory rate 20 /min 20 /min [facility] Heart rate 75 /min 75 /min [facility] Diastolic blood 84 mm[Hg] 84 mm[Hg] [facility] pressure [facility] Systolic blood 143 mm[Hg] 143 mm[Hg] [facility] Heart rate 76 /min 76 /min [facility] Diastolic blood 91 mm[Hg] 91 mm[Hg] [facility] Systolic blood 166 mm[Hg] 166 mm[Hg] [facility] Oxygen saturation 97 % 97 % [facility] blood [facility] by Pulse oximetry Body temperature 36.801886 36.645750 [facility] Respiratory rate 18 /min 18 /min [facility] Heart rate 78 /min 78 /min [facility] Diastolic blood 90 mm[Hg] 90 mm[Hg] [facility] Systolic blood 164 mm[Hg] 164 mm[Hg] [facility] Oxygen saturation 98 % 98 % [facility] blood [facility] by Pulse oximetry Body temperature 36.302872 36.687792 [facility] Respiratory rate 17 /min 17 /min [facility] Oxygen saturation 99 % 99 % [facility] blood [facility] Center by Pulse oximetry Body weight 68.887716 68.587559 kg [facility] Measured kg [facility] Center Oxygen saturation 98 % 98 % [facility] by Pulse oximetry Body height [phone] [phone] cm [facility] Body mass index 24.1 kg/m2 24.1 kg/m2 [facility] (BMI) [Ratio] [facility] Heart rate 84 /min 84 /min MEDGEN ([facility]) Respiratory rate 14 /min 14 /min MEDGEN ( [facility]) Body mass index 24.2 kg/m2 24.2 kg/m2 MEDGEN (S t (BMI) [Ratio] [facility]) Diastolic blood 90 mm[Hg] 90 mm[Hg] MEDGEN (S t [facility]) Systolic blood 160 mm[Hg] 160 mm[Hg] MEDGEN ([facility]) Body weight 150 lb 150 lb MEDGEN ([facility]) Body height 66 in 66 in MEDGEN ([facility]) Heart rate 84 /min 84 /min MEDGEN ([facility] , ) Respiratory rate 14 /min 14 /min MEDGEN ( [facility] , ) Body mass index 24.2 kg/m2 24.2 kg/m2 MEDGEN (S t (BMI) [Ratio] [facility], ) Diastolic blood 90 mm[Hg] 90 mm[Hg] MEDGEN (S t pressure [facility] , ) Systolic blood 160 mm[Hg] 160 mm[Hg] MEDGEN ([facility] , ) Body weight 150 lb 150 lb MEDGEN ([facility]) Body height 66 in 66 in MEDGEN ([facility]) Heart rate 84 /min 84 /min MEDGEN ([facility] , ) Respiratory rate 14 /min 14 /min MEDGEN ( [facility] , ) Body mass index 24.2 kg/m2 24.2 kg/m2 MEDGEN (S t (BMI) [Ratio] [facility], ) Diastolic blood 90 mm[Hg] 90 mm[Hg] MEDGEN (S t pressure [facility] , ) Systolic blood 160 mm[Hg] 160 mm[Hg] MEDGEN ([facility] , ) Body weight 150 lb 150 lb MEDGEN ([facility]) Body height 66 in 66 in MEDGEN ([facility]) Heart rate 84 /min 84 /min MEDGEN ([facility] , ) Respiratory rate 14 /min 14 /min MEDGEN ( [facility] , ) Body mass index 24.2 kg/m2 24.2 kg/m2 MEDGEN (S t (BMI) [Ratio] [facility], ) Diastolic blood 90 mm[Hg] 90 mm[Hg] MEDGEN (S t pressure [facility] , ) Systolic blood 160 mm[Hg] 160 mm[Hg] MEDGEN ([facility] , ) Body weight 150 lb 150 lb MEDGEN ([facility]) Body height 66 in 66 in MEDGEN ([facility]) Heart rate 84 /min 84 /min MEDGEN ([facility]) Respiratory rate 14 /min 14 /min MEDGEN ( [facility] , ) Body mass index 24.2 kg/m2 24.2 kg/m2 MEDGEN (S t (BMI) [Ratio] [facility], ) Diastolic blood 90 mm[Hg] 90 mm[Hg] MEDGEN (S t pressure [facility] , ) Systolic blood 160 mm[Hg] 160 mm[Hg] MEDGEN (St pressure [facility] , ) Body weight 150 lb 150 lb MEDGEN ([facility] , ) Body height 66 in 66 in MEDGEN ([facility] , ) Heart rate 84 /min 84 /min MEDGEN ([facility] , ) Respiratory rate 14 /min 14 /min MEDGEN ( [facility] , ) Body mass index 24.2 kg/m2 24.2 kg/m2 MEDGEN (S t (BMI) [Ratio] [facility], ) Diastolic blood 90 mm[Hg] 90 mm[Hg] MEDGEN (S t pressure [facility] , ) Systolic blood 160 mm[Hg] 160 mm[Hg] MEDGEN (St pressure [facility] , ) Body weight 150 lb 150 lb MEDGEN ([facility] , ) Body height 66 in 66 in MEDGEN ([facility] , ) Heart rate 84 /min 84 /min MEDGEN ([facility] , ) Respiratory rate 14 /min 14 /min MEDGEN ( [facility] , ) Body mass index 24.2 kg/m2 24.2 kg/m2 MEDGEN (S t (BMI) [Ratio] [facility], ) Diastolic blood 90 mm[Hg] 90 mm[Hg] MEDGEN (S t pressure [facility] , ) Systolic blood 160 mm[Hg] 160 mm[Hg] MEDGEN (St pressure [facility] , ) Body weight 150 lb 150 lb MEDGEN ([facility] , ) Body height 66 in 66 in MEDGEN ([facility] , ) Heart rate 84 /min 84 /min MEDGEN ([facility] , ) Respiratory rate 14 /min 14 /min MEDGEN ( [facility] [place] , ) Body mass index 24.2 kg/m2 24.2 kg/m2 MEDGEN (S t (BMI) [Ratio] [facility], ) Diastolic blood 90 mm[Hg] 90 mm[Hg] MEDGEN (S t pressure [facility] , ) Systolic blood 160 mm[Hg] 160 mm[Hg] MEDGEN ([facility] , ) Body weight 150 lb 150 lb MEDGEN ([facility] , ) Body height 66 in 66 in MEDGEN ([facility]) Heart rate 84 /min 84 /min MEDGEN ([facility] , ) Respiratory rate 14 /min 14 /min MEDGEN ( [facility] , ) Body mass index 24.2 kg/m2 24.2 kg/m2 MEDGEN (S t (BMI) [Ratio] [facility], ) Diastolic blood 90 mm[Hg] 90 mm[Hg] MEDGEN (S t pressure [facility] , ) Systolic blood 160 mm[Hg] 160 mm[Hg] MEDGEN ([facility] , ) Body weight 150 lb 150 lb MEDGEN ([facility]) Body height 66 in 66 in MEDGEN ([facility]) Heart rate 84 /min 84 /min MEDGEN ([facility]) Respiratory rate 14 /min 14 /min MEDGEN ( [facility]) Body mass index 24.2 kg/m2 24.2 kg/m2 MEDGEN (S t (BMI) [Ratio] [facility], ) Diastolic blood 90 mm[Hg] 90 mm[Hg] MEDGEN (S t pressure [facility] , ) Systolic blood 160 mm[Hg] 160 mm[Hg] MEDGEN ([facility] , ) Body weight 150 lb 150 lb MEDGEN ([facility]) Body height 66 in 66 in MEDGEN ([facility]) Heart rate 84 /min 84 /min MEDGEN ([facility] , ) Respiratory rate 14 /min 14 /min MEDGEN ( [facility] , ) Body mass index 24.2 kg/m2 24.2 kg/m2 MEDGEN (S t (BMI) [Ratio] [facility], ) Diastolic blood 90 mm[Hg] 90 mm[Hg] MEDGEN (S t pressure [facility] , ) Systolic blood 160 mm[Hg] 160 mm[Hg] MEDGEN (St pressure [facility] , ) Body weight 150 lb 150 lb MEDGEN ([facility] , ) Body height 66 in 66 in MEDGEN ([facility] , ) Heart rate 84 /min 84 /min MEDGEN ([facility] , ) Respiratory rate 14 /min 14 /min MEDGEN ( [facility] , ) Body mass index 24.2 kg/m2 24.2 kg/m2 MEDGEN (S t (BMI) [Ratio] [facility], ) Diastolic blood 90 mm[Hg] 90 mm[Hg] MEDGEN (S t pressure [facility] , ) Systolic blood 160 mm[Hg] 160 mm[Hg] MEDGEN ([facility] , ) Body weight 150 lb 150 lb MEDGEN ([facility] , ) Body height 66 in 66 in MEDGEN ([facility] , ) Heart rate 84 /min 84 /min MEDGEN ([place] , ) Respiratory rate 14 /min 14 /min MEDGEN ( [facility] , ) Body mass index 24.2 kg/m2 24.2 kg/m2 MEDGEN (S t (BMI) [Ratio] [facility], ) Diastolic blood 90 mm[Hg] 90 mm[Hg] MEDGEN (S t pressure [facility] , ) Systolic blood 160 mm[Hg] 160 mm[Hg] MEDGEN ([facility] , ) Body weight 150 lb 150 lb MEDGEN ([facility] , ) Body height 66 in 66 in MEDGEN ([facility]) Heart rate 84 /min 84 /min MEDGEN ([facility] , ) Respiratory rate 14 /min 14 /min MEDGEN ( [facility] , ) Body mass index 24.2 kg/m2 24.2 kg/m2 MEDGEN (S t (BMI) [Ratio] [facility], ) Diastolic blood 90 mm[Hg] 90 mm[Hg] MEDGEN (S t pressure [facility] , ) Systolic blood 160 mm[Hg] 160 mm[Hg] MEDGEN (St pressure [facility]) Body weight 150 lb 150 lb MEDGEN ([facility]) Body height 66 in 66 in MEDGEN ([facility]) Heart rate 84 /min 84 /min MEDGEN ([facility]) Respiratory rate 14 /min 14 /min MEDGEN ( [facility]) Body mass index 24.2 kg/m2 24.2 kg/m2 MEDGEN (S t (BMI) [Ratio] [facility]) Diastolic blood 90 mm[Hg] 90 mm[Hg] MEDGEN (S t [facility]) Systolic blood 160 mm[Hg] 160 mm[Hg] MEDGEN ([facility]) Body weight 150 lb 150 lb MEDGEN ([facility]) Body height 66 in 66 in MEDGEN ([facility]) Heart rate 78 /min 78 /min MEDGEN ([facility]) Respiratory rate 12 /min 12 /min MEDGEN ( [facility]) Body temperature 98 F 98 F MEDGEN ( [facility]) Inhaled oxygen 100 % 100 % MEDGEN ([facility]) Body mass index 20.8 kg/m2 20.8 kg/m2 MEDGEN (S t (BMI) [Ratio] [facility]) Diastolic blood 84 mm[Hg] 84 mm[Hg] MEDGEN (S t pressure [facility]) Systolic blood 184 mm[Hg] 184 mm[Hg] MEDGEN ([facility]) Body weight 137 lb 137 lb MEDGEN ([facility]) Body height 68 in 68 in MEDGEN ([facility]) Heart rate 78 /min 78 /min MEDGEN ([facility]) Respiratory rate 12 /min 12 /min MEDGEN ( [facility]) Body temperature 98 F 98 F MEDGEN ( [facility]) Inhaled oxygen 100 % 100 % MEDGEN ([facility]) Body mass index 20.8 kg/m2 20.8 kg/m2 MEDGEN (S t (BMI) [Ratio] [facility]) Diastolic blood 84 mm[Hg] 84 mm[Hg] MEDGEN (S t pressure [facility]) Systolic blood 184 mm[Hg] 184 mm[Hg] MEDGEN ([facility]) Body weight 137 lb 137 lb MEDGEN ([facility]) Body height 68 in 68 in MEDGEN ([facility]) Heart rate 78 /min 78 /min MEDGEN ([facility]) Respiratory rate 12 /min 12 /min MEDGEN ( [facility]) Body temperature 98 F 98 F MEDGEN ( [facility]) Inhaled oxygen 100 % 100 % MEDGEN ([facility], ) Body mass index 20.8 kg/m2 20.8 kg/m2 MEDGEN (S t (BMI) [Ratio] [facility], ) Diastolic blood 84 mm[Hg] 84 mm[Hg] MEDGEN (S t pressure [facility]) Systolic blood 184 mm[Hg] 184 mm[Hg] MEDGEN ([facility]) Body weight 137 lb 137 lb MEDGEN ([facility]) Body height 68 in 68 in MEDGEN ([facility]) Heart rate 78 /min 78 /min MEDGEN ([facility]) Respiratory rate 12 /min 12 /min MEDGEN ( [facility]) Body temperature 98 F 98 F MEDGEN ( [facility]) Inhaled oxygen 100 % 100 % MEDGEN ([facility]) Body mass index 20.8 kg/m2 20.8 kg/m2 MEDGEN (S t (BMI) [Ratio] [facility], ) Diastolic blood 84 mm[Hg] 84 mm[Hg] MEDGEN (S t pressure [facility]) Systolic blood 184 mm[Hg] 184 mm[Hg] MEDGEN ([facility]) Body weight 137 lb 137 lb MEDGEN ([facility]) Body height 68 in 68 in MEDGEN ([facility]) Heart rate 78 /min 78 /min MEDGEN ([facility]) Respiratory rate 12 /min 12 /min MEDGEN ( [facility]) Body temperature 98 F 98 F MEDGEN ( [facility]) Inhaled oxygen 100 % 100 % MEDGEN ([facility], ) Body mass index 20.8 kg/m2 20.8 kg/m2 MEDGEN (S t (BMI) [Ratio] [facility], ) Diastolic blood 84 mm[Hg] 84 mm[Hg] MEDGEN (S t [facility]) Systolic blood 184 mm[Hg] 184 mm[Hg] MEDGEN ([facility]) Body weight 137 lb 137 lb MEDGEN ([facility]) Body height 68 in 68 in MEDGEN ([facility]) Heart rate 78 /min 78 /min MEDGEN ([facility]) Respiratory rate 12 /min 12 /min MEDGEN ( [facility]) Body temperature 98 F 98 F MEDGEN ( [facility]) Inhaled oxygen 100 % 100 % MEDGEN ([facility]) Body mass index 20.8 kg/m2 20.8 kg/m2 MEDGEN (S t (BMI) [Ratio] [facility], ) Diastolic blood 84 mm[Hg] 84 mm[Hg] MEDGEN (S t [facility]) Systolic blood 184 mm[Hg] 184 mm[Hg] MEDGEN ([facility]) Body weight 137 lb 137 lb MEDGEN ([facility]) Body height 68 in 68 in MEDGEN ([facility]) Heart rate 78 /min 78 /min MEDGEN ([facility]) Respiratory rate 12 /min 12 /min MEDGEN ( [facility]) Body temperature 98 F 98 F MEDGEN ( [facility]) Inhaled oxygen 100 % 100 % MEDGEN ([facility]) Body mass index 20.8 kg/m2 20.8 kg/m2 MEDGEN (S t (BMI) [Ratio] [facility]) Diastolic blood 84 mm[Hg] 84 mm[Hg] MEDGEN (S t [facility]) Systolic blood 184 mm[Hg] 184 mm[Hg] MEDGEN ([facility]) Body weight 137 lb 137 lb MEDGEN ([facility]) Body height 68 in 68 in MEDGEN ([facility]) Heart rate 78 /min 78 /min MEDGEN ([facility]) Respiratory rate 12 /min 12 /min MEDGEN ( [facility]) Body temperature 98 F 98 F MEDGEN ( [facility]) Inhaled oxygen 100 % 100 % MEDGEN ([facility], ) Body mass index 20.8 kg/m2 20.8 kg/m2 MEDGEN (S t (BMI) [Ratio] [facility], ) Diastolic blood 84 mm[Hg] 84 mm[Hg] MEDGEN (S t [facility]) Systolic blood 184 mm[Hg] 184 mm[Hg] MEDGEN ([facility]) Body weight 137 lb 137 lb MEDGEN ([facility]) Body height 68 in 68 in MEDGEN ([facility]) Heart rate 78 /min 78 /min MEDGEN ([facility]) Respiratory rate 12 /min 12 /min MEDGEN ( [facility]) Body temperature 98 F 98 F MEDGEN ( [facility]) Inhaled oxygen 100 % 100 % MEDGEN ([facility], ) Body mass index 20.8 kg/m2 20.8 kg/m2 MEDGEN (S t (BMI) [Ratio] [facility], ) Diastolic blood 84 mm[Hg] 84 mm[Hg] MEDGEN (S t [facility]) Systolic blood 184 mm[Hg] 184 mm[Hg] MEDGEN ([facility]) Body weight 137 lb 137 lb MEDGEN ([facility]) Body height 68 in 68 in MEDGEN ([facility]) Heart rate 78 /min 78 /min MEDGEN ([facility]) Respiratory rate 12 /min 12 /min MEDGEN ( [facility]) Body temperature 98 F 98 F MEDGEN ( [facility]) Inhaled oxygen 100 % 100 % MEDGEN ([facility], ) Body mass index 20.8 kg/m2 20.8 kg/m2 MEDGEN (S t (BMI) [Ratio] [facility], ) Diastolic blood 84 mm[Hg] 84 mm[Hg] MEDGEN (S t [facility]) Systolic blood 184 mm[Hg] 184 mm[Hg] MEDGEN ([facility]) Body weight 137 lb 137 lb MEDGEN ([facility]) Body height 68 in 68 in MEDGEN ([facility]) Heart rate 78 /min 78 /min MEDGEN ([facility]) Respiratory rate 12 /min 12 /min MEDGEN ( [facility]) Body temperature 98 F 98 F MEDGEN ( [facility]) Inhaled oxygen 100 % 100 % MEDGEN ([facility]) Body mass index 20.8 kg/m2 20.8 kg/m2 MEDGEN (S t (BMI) [Ratio] [facility], ) Diastolic blood 84 mm[Hg] 84 mm[Hg] MEDGEN (S t [facility]) Systolic blood 184 mm[Hg] 184 mm[Hg] MEDGEN ([facility]) Body weight 137 lb 137 lb MEDGEN ([facility]) Body height 68 in 68 in MEDGEN ([facility]) Heart rate 78 /min 78 /min MEDGEN ([facility]) Respiratory rate 12 /min 12 /min MEDGEN ( [facility]) Body temperature 98 F 98 F MEDGEN ( [facility]) Inhaled oxygen 100 % 100 % MEDGEN ([facility], ) Body mass index 20.8 kg/m2 20.8 kg/m2 MEDGEN (S t (BMI) [Ratio] [facility], ) Diastolic blood 84 mm[Hg] 84 mm[Hg] MEDGEN (S t [facility]) Systolic blood 184 mm[Hg] 184 mm[Hg] MEDGEN ([facility]) Body weight 137 lb 137 lb MEDGEN ([facility]) Body height 68 in 68 in MEDGEN ([facility]) Respiratory rate 12 /min 12 /min MEDGEN ( [facility]) Body temperature 98 F 98 F MEDGEN ( [facility]) Inhaled oxygen 100 % 100 % MEDGEN ([facility]) Body mass index 20.8 kg/m2 20.8 kg/m2 MEDGEN (S t (BMI) [Ratio] [facility]) Diastolic blood 84 mm[Hg] 84 mm[Hg] MEDGEN (S t [facility]) Systolic blood 184 mm[Hg] 184 mm[Hg] MEDGEN ([facility]) Body weight 137 lb 137 lb MEDGEN ([facility]) Body height 68 in 68 in MEDGEN ([facility]) Heart rate 78 /min 78 /min MEDGEN ([facility]) Heart rate 78 /min 78 /min MEDGEN ([facility]) Respiratory rate 12 /min 12 /min MEDGEN ( [facility]) Body temperature 98 F 98 F MEDGEN ( [facility]) Inhaled oxygen 100 % 100 % MEDGEN ([facility]) Body mass index 20.8 kg/m2 20.8 kg/m2 MEDGEN (S t (BMI) [Ratio] [facility]) Diastolic blood 84 mm[Hg] 84 mm[Hg] MEDGEN (S t [facility]) Systolic blood 184 mm[Hg] 184 mm[Hg] MEDGEN ([facility]) Body weight 137 lb 137 lb MEDGEN ([facility]) Body height 68 in 68 in MEDGEN ([facility]) Heart rate 78 /min 78 /min MEDGEN ([facility]) Respiratory rate 12 /min 12 /min MEDGEN ( [facility]) Body temperature 98 F 98 F MEDGEN ( [facility]) Inhaled oxygen 100 % 100 % MEDGEN ([facility]) Body mass index 20.8 kg/m2 20.8 kg/m2 MEDGEN (S t (BMI) [Ratio] [facility], ) Diastolic blood 84 mm[Hg] 84 mm[Hg] MEDGEN (S t [facility]) Systolic blood 184 mm[Hg] 184 mm[Hg] MEDGEN (St [facility] , ) Body weight 137 lb 137 lb MEDGEN ([facility] , ) Body height 68 in 68 in MEDGEN ([facility] , ) Heart rate 100 /min 100 /min MEDGEN ([facility] , ) Respiratory rate 14 /min 14 /min MEDGEN ( [facility] , ) Diastolic blood 100 mm[Hg] 100 mm[Hg] MEDGEN (S t pressure [facility] , ) Systolic blood 150 mm[Hg] 150 mm[Hg] MEDGEN (St [facility] , ) Heart rate 100 /min 100 /min MEDGEN ([facility] , ) Respiratory rate 14 /min 14 /min MEDGEN ( [facility] , ) Diastolic blood 100 mm[Hg] 100 mm[Hg] MEDGEN (S t pressure [facility] , ) Systolic blood 150 mm[Hg] 150 mm[Hg] MEDGEN (St [facility] , ) Heart rate 100 /min 100 /min MEDGEN ([facility] , ) Respiratory rate 14 /min 14 /min MEDGEN ( [facility] , ) Diastolic blood 100 mm[Hg] 100 mm[Hg] MEDGEN (S t pressure [facility] , ) Systolic blood 150 mm[Hg] 150 mm[Hg] MEDGEN (St pressure [facility] , ) Heart rate 100 /min 100 /min MEDGEN ([facility] , ) Respiratory rate 14 /min 14 /min MEDGEN ( [facility] , ) Diastolic blood 100 mm[Hg] 100 mm[Hg] MEDGEN (S t pressure [facility] , ) Systolic blood 150 mm[Hg] 150 mm[Hg] MEDGEN (St pressure [facility] , ) Heart rate 100 /min 100 /min MEDGEN ([facility] , ) Respiratory rate 14 /min 14 /min MEDGEN ( [facility] , ) Diastolic blood 100 mm[Hg] 100 mm[Hg] MEDGEN (S t pressure [facility] , ) Systolic blood 150 mm[Hg] 150 mm[Hg] MEDGEN (St pressure [facility] , ) Heart rate 100 /min 100 /min MEDGEN ([facility] Respiratory rate 14 /min 14 /min MEDGEN ( [facility]) Diastolic blood 100 mm[Hg] 100 mm[Hg] MEDGEN (S t pressure [facility] , [facility]) Systolic blood 150 mm[Hg] 150 mm[Hg] MEDGEN ([facility] Heart rate 100 /min 100 /min [facility] ([facility] Respiratory rate 14 /min 14 /min [facility] ( [facility]) Diastolic blood 100 mm[Hg] 100 mm[Hg] [facility]GEN ([facility]) Systolic blood 150 mm[Hg] 150 mm[Hg] [facility] ([facility] , ) Heart rate 100 /min 100 /min [facility] ([facility]) Respiratory rate 14 /min 14 /min MEDGEN ( [facility] , ) Diastolic blood 100 mm[Hg] 100 mm[Hg] MEDGEN ([facility]) Systolic blood 150 mm[Hg] 150 mm[Hg] [facility] ([facility]) Heart rate 100 /min 100 /min MED[facility] ([facility] , ) Respiratory rate 14 /min 14 /min MEDGEN ( [facility] , ) Diastolic blood 100 mm[Hg] 100 mm[Hg] MEDGEN ([facility]) Systolic blood 150 mm[Hg] 150 mm[Hg] [facility]GEN ([facility]) Heart rate 100 /min 100 /min [facility] ([facility]) Respiratory rate 14 /min 14 /min MEDGEN ( [facility]) Diastolic blood 100 mm[Hg] 100 mm[Hg] MEDGEN ([facility]) Systolic blood 150 mm[Hg] 150 mm[Hg] MEDGEN ([facility]) Heart rate 100 /min 100 /min MEDGEN ([facility]) Respiratory rate 14 /min 14 /min MEDGEN ( [facility] , ) Diastolic blood 100 mm[Hg] 100 mm[Hg] MEDGEN ([facility]) Systolic blood 150 mm[Hg] 150 mm[Hg] [facility]GEN ([facility]) Heart rate 100 /min 100 /min [facility] ([facility]) Respiratory rate 14 /min 14 /min MED[facility] ( [facility]) Diastolic blood 100 mm[Hg] 100 mm[Hg] MEDGEN ([facility]) Systolic blood 150 mm[Hg] 150 mm[Hg] [facility]GEN ([facility]) Heart rate 100 /min 100 /min MED[facility] ([facility]) Respiratory rate 14 /min 14 /min MED[facility] ( [facility]) Diastolic blood 100 mm[Hg] 100 mm[Hg] MEDGEN ([facility]) Systolic blood 150 mm[Hg] 150 mm[Hg] [facility] ([facility]) Heart rate 100 /min 100 /min [facility] ([facility]) Respiratory rate 14 /min 14 /min MED[facility] ( [facility]) Diastolic blood 100 mm[Hg] 100 mm[Hg] MEDGEN ([facility]) Systolic blood 150 mm[Hg] 150 mm[Hg] [facility] ([facility]) Heart rate 100 /min 100 /min [facility] ([facility]) Respiratory rate 14 /min 14 /min MED[facility] ( [facility]) Diastolic blood 100 mm[Hg] 100 mm[Hg] MEDGEN ([facility]) Systolic blood 150 mm[Hg] 150 mm[Hg] [facility] ([facility]) Heart rate 88 /min 88 /min [facility] ([facility]) Respiratory rate 18 /min 18 /min MED[facility] ( [facility] , ) Body mass index -1 kg/m2 -1 kg/m2 MEDGEN (S t (BMI) [Ratio] [facility], ) Diastolic blood 90 mm[Hg] 90 mm[Hg] MEDGEN ([facility]) Systolic blood 150 mm[Hg] 150 mm[Hg] [facility]GEN ([facility] , [facility]) Heart rate 88 /min 88 /min MED[facility] ([facility]) Respiratory rate 18 /min 18 /min MED[facility] ( [facility]) Body mass index -1 kg/m2 -1 kg/m2 MEDGEN (S t (BMI) [Ratio] [facility], ) Diastolic blood 90 mm[Hg] 90 mm[Hg] MEDGEN ([facility]) Systolic blood 150 mm[Hg] 150 mm[Hg] MEDGEN ([facility]) Heart rate 88 /min 88 /min MED[facility] ([facility]) Respiratory rate 18 /min 18 /min MED[facility] ( [facility]) Body mass index -1 kg/m2 -1 kg/m2 MEDGEN (S t (BMI) [Ratio] [facility], ) Diastolic blood 90 mm[Hg] 90 mm[Hg] MEDGEN ([facility]) Systolic blood 150 mm[Hg] 150 mm[Hg] MEDGEN ([facility]) Heart rate 88 /min 88 /min MED[facility] ([facility]) Respiratory rate 18 /min 18 /min MED[facility] ( [facility]) Body mass index -1 kg/m2 -1 kg/m2 MEDGEN (S t (BMI) [Ratio] [facility], [facility]) Diastolic blood 90 mm[Hg] 90 mm[Hg] MEDGEN ([facility]) Systolic blood 150 mm[Hg] 150 mm[Hg] MEDGEN ([facility]) Heart rate 88 /min 88 /min MED[facility] ([facility]) Respiratory rate 18 /min 18 /min MED[facility] ( [facility]) Body mass index -1 kg/m2 -1 kg/m2 MEDGEN (S t (BMI) [Ratio] [facility], ) Diastolic blood 90 mm[Hg] 90 mm[Hg] MEDGEN ([facility]) Systolic blood 150 mm[Hg] 150 mm[Hg] MEDGEN ([facility]) Heart rate 88 /min 88 /min MED[facility] ([facility]) Respiratory rate 18 /min 18 /min MED[facility] ( [facility] , ) Body mass index -1 kg/m2 -1 kg/m2 MEDGEN (S t (BMI) [Ratio] [facility]) Diastolic blood 90 mm[Hg] 90 mm[Hg] MEDGEN ([facility]) Systolic blood 150 mm[Hg] 150 mm[Hg] MED[facility] ([facility]) Heart rate 88 /min 88 /min MEDGEN ([facility] , ) Respiratory rate 18 /min 18 /min MEDGEN ( [facility] , ) Body mass index -1 kg/m2 -1 kg/m2 MEDGEN (S t (BMI) [Ratio] [facility]) Diastolic blood 90 mm[Hg] 90 mm[Hg] MEDGEN ([facility] , ) Systolic blood 150 mm[Hg] 150 mm[Hg] MEDGEN ([facility] , ) Heart rate 88 /min 88 /min MEDGEN ([facility] , ) Respiratory rate 18 /min 18 /min MEDGEN ( [facility] , ) Body mass index -1 kg/m2 -1 kg/m2 MEDGEN (S t (BMI) [Ratio] [facility]) Diastolic blood 90 mm[Hg] 90 mm[Hg] MEDGEN ([facility] , ) Systolic blood 150 mm[Hg] 150 mm[Hg] MEDGEN ([facility]) Heart rate 88 /min 88 /min MEDGEN ([facility] , ) Respiratory rate 18 /min 18 /min MEDGEN ( [facility] , ) Body mass index -1 kg/m2 -1 kg/m2 MEDGEN (S t (BMI) [Ratio] [facility]) Diastolic blood 90 mm[Hg] 90 mm[Hg] MEDGEN ([facility] , ) Systolic blood 150 mm[Hg] 150 mm[Hg] MEDGEN ([facility] , ) Heart rate 88 /min 88 /min MED[facility] ([facility]) Respiratory rate 18 /min 18 /min MEDGEN ( [facility] , ) Body mass index -1 kg/m2 -1 kg/m2 MEDGEN (S t (BMI) [Ratio] [facility]) Diastolic blood 90 mm[Hg] 90 mm[Hg] MEDGEN ([facility]) Systolic blood 150 mm[Hg] 150 mm[Hg] MEDGEN ([facility]) Heart rate 88 /min 88 /min MEDGEN ([facility]) Respiratory rate 18 /min 18 /min MEDGEN ( [facility]) Body mass index -1 kg/m2 -1 kg/m2 MEDGEN (S t (BMI) [Ratio] [facility], ) Diastolic blood 90 mm[Hg] 90 mm[Hg] MEDGEN ([facility]) Systolic blood 150 mm[Hg] 150 mm[Hg] MEDGEN ([facility]) Heart rate 88 /min 88 /min MEDGEN ([facility]) Respiratory rate 18 /min 18 /min MEDGEN ( [facility] , ) Body mass index -1 kg/m2 -1 kg/m2 MEDGEN (S t (BMI) [Ratio] [facility]) Diastolic blood 90 mm[Hg] 90 mm[Hg] MEDGEN ([facility]) Systolic blood 150 mm[Hg] 150 mm[Hg] MEDGEN ([facility]) Heart rate 88 /min 88 /min MED[facility] ([facility]) Respiratory rate 18 /min 18 /min MEDGEN ( [facility]) Body mass index -1 kg/m2 -1 kg/m2 MEDGEN (S t (BMI) [Ratio] [facility]) Diastolic blood 90 mm[Hg] 90 mm[Hg] MEDGEN ([facility]) Systolic blood 150 mm[Hg] 150 mm[Hg] MEDGEN ([facility]) Heart rate 88 /min 88 /min MED[facility] ([facility]) Respiratory rate 18 /min 18 /min MEDGEN ( [facility]) Body mass index -1 kg/m2 -1 kg/m2 MEDGEN (S t (BMI) [Ratio] [facility], ) Diastolic blood 90 mm[Hg] 90 mm[Hg] MEDGEN ([facility]) Systolic blood 150 mm[Hg] 150 mm[Hg] MEDGEN ([facility] Heart rate 88 /min 88 /min MEDGEN ([facility]) Respiratory rate 18 /min 18 /min MEDGEN ( [facility]) Body mass index -1 kg/m2 -1 kg/m2 MEDGEN (S t (BMI) [Ratio] [facility], ) Diastolic blood 90 mm[Hg] 90 mm[Hg] MEDGEN (S t [facility]) Systolic blood 150 mm[Hg] 150 mm[Hg] MEDGEN ([facility]) Heart rate 78 /min 78 /min MEDGEN ([facility]) Respiratory rate 12 /min 12 /min MEDGEN ( [facility]) Body temperature 97.5 F 97.5 F MEDGEN ( [facility]) Inhaled oxygen 100 % 100 % MEDGEN ([facility], ) Body mass index 21 kg/m2 21 kg/m2 MEDGEN (S t (BMI) [Ratio] [facility], ) Diastolic blood 101 mm[Hg] 101 mm[Hg] MEDGEN (S t [facility]) Systolic blood 160 mm[Hg] 160 mm[Hg] MEDGEN ([facility]) Body weight 138 lb 138 lb MEDGEN ([facility]) Body height 68 in 68 in MEDGEN ([facility]) Heart rate 78 /min 78 /min MEDGEN ([facility]) Respiratory rate 12 /min 12 /min MEDGEN ( [facility]) Body temperature 97.5 F 97.5 F MEDGEN ( [facility]) Inhaled oxygen 100 % 100 % MEDGEN ([facility], ) Body mass index 21 kg/m2 21 kg/m2 MEDGEN (S t (BMI) [Ratio] [facility]) Diastolic blood 101 mm[Hg] 101 mm[Hg] MEDGEN (S t pressure [facility]) Systolic blood 160 mm[Hg] 160 mm[Hg] MEDGEN ([facility]) Body weight 138 lb 138 lb MEDGEN ([facility]) Body height 68 in 68 in MEDGEN ([facility]) Heart rate 78 /min 78 /min MEDGEN ([facility]) Respiratory rate 12 /min 12 /min MEDGEN ( [facility]) Body temperature 97.5 F 97.5 F MEDGEN ( [facility]) Inhaled oxygen 100 % 100 % MEDGEN ([facility], ) Body mass index 21 kg/m2 21 kg/m2 MEDGEN (S t (BMI) [Ratio] [facility], ) Diastolic blood 101 mm[Hg] 101 mm[Hg] MEDGEN (S t [facility]) Systolic blood 160 mm[Hg] 160 mm[Hg] MEDGEN ([facility]) Body weight 138 lb 138 lb MEDGEN ([facility]) Body height 68 in 68 in MEDGEN ([facility]) Heart rate 78 /min 78 /min MEDGEN ([facility]) Respiratory rate 12 /min 12 /min MEDGEN ( [facility]) Body temperature 97.5 F 97.5 F MEDGEN ( [facility]) Inhaled oxygen 100 % 100 % MEDGEN ([facility], ) Body mass index 21 kg/m2 21 kg/m2 MEDGEN (S t (BMI) [Ratio] [facility], ) Diastolic blood 101 mm[Hg] 101 mm[Hg] MEDGEN (S t [facility]) Systolic blood 160 mm[Hg] 160 mm[Hg] MEDGEN ([facility]) Body weight 138 lb 138 lb MEDGEN ([facility]) Body height 68 in 68 in MEDGEN ([facility]) Heart rate 78 /min 78 /min MEDGEN ([facility]) Respiratory rate 12 /min 12 /min MEDGEN ( [facility]) Body temperature 97.5 F 97.5 F MEDGEN ( [facility]) Inhaled oxygen 100 % 100 % MEDGEN ([facility], ) Body mass index 21 kg/m2 21 kg/m2 MEDGEN (S t (BMI) [Ratio] [facility], ) Diastolic blood 101 mm[Hg] 101 mm[Hg] MEDGEN (S t [facility]) Systolic blood 160 mm[Hg] 160 mm[Hg] MEDGEN ([facility]) Body weight 138 lb 138 lb MEDGEN ([facility]) Body height 68 in 68 in MEDGEN ([facility]) Heart rate 78 /min 78 /min MEDGEN ([facility]) Respiratory rate 12 /min 12 /min MEDGEN ( [facility]) Body temperature 97.5 F 97.5 F MEDGEN ( [facility]) Inhaled oxygen 100 % 100 % MEDGEN ([facility], ) Body mass index 21 kg/m2 21 kg/m2 MEDGEN (S t (BMI) [Ratio] [facility], ) Diastolic blood 101 mm[Hg] 101 mm[Hg] MEDGEN (S t [facility]) Systolic blood 160 mm[Hg] 160 mm[Hg] MEDGEN ([facility]) Body weight 138 lb 138 lb MEDGEN ([facility]) Body height 68 in 68 in MEDGEN ([facility]) Heart rate 78 /min 78 /min MEDGEN ([facility]) Respiratory rate 12 /min 12 /min MEDGEN ( [facility]) Body temperature 97.5 F 97.5 F MEDGEN ( [facility]) Inhaled oxygen 100 % 100 % MEDGEN ([facility], ) Body mass index 21 kg/m2 21 kg/m2 MEDGEN (S t (BMI) [Ratio] [facility], ) Diastolic blood 101 mm[Hg] 101 mm[Hg] MEDGEN (S t [facility]) Systolic blood 160 mm[Hg] 160 mm[Hg] MEDGEN ([facility]) Body weight 138 lb 138 lb MEDGEN ([facility]) Body height 68 in 68 in MEDGEN ([facility]) Heart rate 78 /min 78 /min MEDGEN ([facility]) Respiratory rate 12 /min 12 /min MEDGEN ( [facility]) Body temperature 97.5 F 97.5 F MEDGEN ( [facility]) Inhaled oxygen 100 % 100 % MEDGEN ([facility]) Body mass index 21 kg/m2 21 kg/m2 MEDGEN (S t (BMI) [Ratio] [facility]) Diastolic blood 101 mm[Hg] 101 mm[Hg] MEDGEN (S t [facility]) Systolic blood 160 mm[Hg] 160 mm[Hg] MEDGEN ([facility]) Body weight 138 lb 138 lb MEDGEN ([facility]) Body height 68 in 68 in MEDGEN ([facility]) Heart rate 78 /min 78 /min MEDGEN ([facility]) Respiratory rate 12 /min 12 /min MEDGEN ( [facility]) Body temperature 97.5 F 97.5 F MEDGEN ( [facility]) Inhaled oxygen 100 % 100 % MEDGEN ([facility]) Body mass index 21 kg/m2 21 kg/m2 MEDGEN (S t (BMI) [Ratio] [facility]) Diastolic blood 101 mm[Hg] 101 mm[Hg] MEDGEN (S t [facility]) Systolic blood 160 mm[Hg] 160 mm[Hg] MEDGEN ([facility]) Body weight 138 lb 138 lb MEDGEN ([facility]) Body height 68 in 68 in MEDGEN ([facility]) Heart rate 78 /min 78 /min MEDGEN ([facility]) Respiratory rate 12 /min 12 /min MEDGEN ( [facility]) Body temperature 97.5 F 97.5 F MEDGEN ( [facility]) Inhaled oxygen 100 % 100 % MEDGEN ([facility]) Body mass index 21 kg/m2 21 kg/m2 MEDGEN (S t (BMI) [Ratio] [facility], ) Diastolic blood 101 mm[Hg] 101 mm[Hg] MEDGEN (S t [facility]) Systolic blood 160 mm[Hg] 160 mm[Hg] MEDGEN ([facility] , ) Body weight 138 lb 138 lb MEDGEN ([facility]) Body height 68 in 68 in MEDGEN ([facility]) Heart rate 78 /min 78 /min MEDGEN ([facility]) Respiratory rate 12 /min 12 /min MEDGEN ( [facility]) Body temperature 97.5 F 97.5 F MEDGEN ( [facility]) Inhaled oxygen 100 % 100 % MEDGEN ([facility], ) Body mass index 21 kg/m2 21 kg/m2 MEDGEN (S t (BMI) [Ratio] [facility]) Diastolic blood 101 mm[Hg] 101 mm[Hg] MEDGEN (S t [facility]) Systolic blood 160 mm[Hg] 160 mm[Hg] MEDGEN ([facility]) Body weight 138 lb 138 lb MEDGEN ([facility]) Body height 68 in 68 in MEDGEN ([facility]) Heart rate 78 /min 78 /min MEDGEN ([facility]) Respiratory rate 12 /min 12 /min MEDGEN ( [facility]) Body temperature 97.5 F 97.5 F MEDGEN ( [facility]) Inhaled oxygen 100 % 100 % MEDGEN ([facility], ) Body mass index 21 kg/m2 21 kg/m2 MEDGEN (S t (BMI) [Ratio] [facility], ) Diastolic blood 101 mm[Hg] 101 mm[Hg] MEDGEN (S t pressure [facility] , ) Systolic blood 160 mm[Hg] 160 mm[Hg] MEDGEN ([facility]) Body weight 138 lb 138 lb MEDGEN ([facility]) Body height 68 in 68 in MEDGEN ([facility]) Heart rate 78 /min 78 /min MEDGEN ([facility]) Respiratory rate 12 /min 12 /min MEDGEN ( [facility]) Body temperature 97.5 F 97.5 F MEDGEN ( [facility]) Inhaled oxygen 100 % 100 % MEDGEN ([facility], ) Body mass index 21 kg/m2 21 kg/m2 MEDGEN (S t (BMI) [Ratio] [facility], ) Diastolic blood 101 mm[Hg] 101 mm[Hg] MEDGEN (S t [facility]) Systolic blood 160 mm[Hg] 160 mm[Hg] MEDGEN ([facility]) Body weight 138 lb 138 lb MEDGEN ([facility]) Body height 68 in 68 in MEDGEN ([facility]) Heart rate 78 /min 78 /min MEDGEN ([facility]) Respiratory rate 12 /min 12 /min MEDGEN ( [facility]) Body temperature 97.5 F 97.5 F MEDGEN ( [facility]) Inhaled oxygen 100 % 100 % MEDGEN ([facility], ) Body mass index 21 kg/m2 21 kg/m2 MEDGEN (S t (BMI) [Ratio] [facility], ) Diastolic blood 101 mm[Hg] 101 mm[Hg] MEDGEN (S t [facility]) Systolic blood 160 mm[Hg] 160 mm[Hg] MEDGEN ([facility]) Body weight 138 lb 138 lb MEDGEN ([facility]) Body height 68 in 68 in MEDGEN ([facility]) Heart rate 78 /min 78 /min MEDGEN ([facility]) Respiratory rate 12 /min 12 /min MEDGEN ( [facility]) Body temperature 97.5 F 97.5 F MEDGEN ( [facility]) Inhaled oxygen 100 % 100 % MEDGEN ([facility], ) Body mass index 21 kg/m2 21 kg/m2 MEDGEN (S t (BMI) [Ratio] [facility], ) Diastolic blood 101 mm[Hg] 101 mm[Hg] MEDGEN (S t [facility]) Systolic blood 160 mm[Hg] 160 mm[Hg] MEDGEN ([facility]) Body weight 138 lb 138 lb MEDGEN ([facility]) Body height 68 in 68 in MEDGEN ([facility] ) Heart rate 76 /min 76 /min MEDGEN ([facility] , ) Respiratory rate 12 /min 12 /min MEDGEN ( [facility] , ) Body temperature 97.8 F 97.8 F MEDGEN ( [facility] , ) Inhaled oxygen 100 % 100 % MEDGEN (St concentration [facility], ) Diastolic blood 98 mm[Hg] 98 mm[Hg] MEDGEN (S t pressure [facility] , ) Systolic blood 158 mm[Hg] 158 mm[Hg] MEDGEN ([facility] , ) Body height 68 in 68 in MEDGEN ([facility]) Heart rate 76 /min 76 /min MEDGEN ([facility] , ) Respiratory rate 12 /min 12 /min MEDGEN ( [facility] , ) Body temperature 97.8 F 97.8 F MEDGEN ( [facility] , ) Inhaled oxygen 100 % 100 % MEDGEN ([facility], ) Diastolic blood 98 mm[Hg] 98 mm[Hg] MEDGEN (S t pressure [facility] , ) Systolic blood 158 mm[Hg] 158 mm[Hg] MEDGEN ([facility] , ) Body height 68 in 68 in MEDGEN ([facility]) Heart rate 76 /min 76 /min MEDGEN ([facility] , ) Respiratory rate 12 /min 12 /min MEDGEN ( [facility] , ) Body temperature 97.8 F 97.8 F MEDGEN ( [facility] , ) Inhaled oxygen 100 % 100 % MEDGEN ( concentration [facility], ) Diastolic blood 98 mm[Hg] 98 mm[Hg] MEDGEN (S t pressure [facility] , ) Systolic blood 158 mm[Hg] 158 mm[Hg] MEDGEN ([facility] , ) Body height 68 in 68 in MEDGEN ([facility] , ) Heart rate 76 /min 76 /min MEDGEN ([facility] , ) Respiratory rate 12 /min 12 /min MEDGEN ( [facility] , ) Body temperature 97.8 F 97.8 F MEDGEN ( [facility]) Inhaled oxygen 100 % 100 % MEDGEN (St concentration [facility], ) Diastolic blood 98 mm[Hg] 98 mm[Hg] MEDGEN (S t pressure [facility] , ) Systolic blood 158 mm[Hg] 158 mm[Hg] MEDGEN (St pressure [facility] , ) Body height 68 in 68 in MEDGEN ([facility] , ) Heart rate 76 /min 76 /min MEDGEN ([facility] , ) Respiratory rate 12 /min 12 /min MEDGEN ( [facility] , ) Body temperature 97.8 F 97.8 F MEDGEN ( [facility] , ) Inhaled oxygen 100 % 100 % MEDGEN ( concentration [facility], ) Diastolic blood 98 mm[Hg] 98 mm[Hg] MEDGEN (S t pressure [facility] , ) Systolic blood 158 mm[Hg] 158 mm[Hg] MEDGEN ([facility] , ) Body height 68 in 68 in MEDGEN ([facility]) Heart rate 76 /min 76 /min MEDGEN ([facility] , ) Respiratory rate 12 /min 12 /min MEDGEN ( [place] , ) Body temperature 97.8 F 97.8 F MEDGEN ( [facility] , ) Inhaled oxygen 100 % 100 % MEDGEN ([facility], ) Diastolic blood 98 mm[Hg] 98 mm[Hg] MEDGEN (S t pressure [facility] , ) Systolic blood 158 mm[Hg] 158 mm[Hg] MEDGEN ([facility] , ) Body height 68 in 68 in MEDGEN ([facility] , ) Heart rate 76 /min 76 /min MEDGEN ([facility] , ) Respiratory rate 12 /min 12 /min MEDGEN ( [facility] , ) Body temperature 97.8 F 97.8 F MEDGEN ( [facility] , ) Inhaled oxygen 100 % 100 % MEDGEN ([facility], ) Diastolic blood 98 mm[Hg] 98 mm[Hg] MEDGEN (S t pressure [facility] , ) Systolic blood 158 mm[Hg] 158 mm[Hg] MEDGEN ([facility] , ) Body height 68 in 68 in MEDGEN ([facility] , ) Heart rate 76 /min 76 /min MEDGEN ([facility] , ) Respiratory rate 12 /min 12 /min MEDGEN ( [facility] , ) Body temperature 97.8 F 97.8 F MEDGEN ( [facility] , ) Inhaled oxygen 100 % 100 % MEDGEN ([facility], ) Diastolic blood 98 mm[Hg] 98 mm[Hg] MEDGEN (S t [facility] , ) Systolic blood 158 mm[Hg] 158 mm[Hg] MEDGEN (St pressure [facility] , ) Body height 68 in 68 in MEDGEN ([facility] , ) Heart rate 76 /min 76 /min MEDGEN ([facility] , ) Respiratory rate 12 /min 12 /min MEDGEN ( [facility] , ) Body temperature 97.8 F 97.8 F MEDGEN ( [place] , ) Inhaled oxygen 100 % 100 % MEDGEN ([facility], ) Diastolic blood 98 mm[Hg] 98 mm[Hg] MEDGEN (S t pressure [facility] , ) Systolic blood 158 mm[Hg] 158 mm[Hg] MEDGEN (St pressure [facility] , ) Body height 68 in 68 in MEDGEN ([facility] , ) Heart rate 76 /min 76 /min MEDGEN ([facility] , ) Respiratory rate 12 /min 12 /min MEDGEN ( [facility] , ) Body temperature 97.8 F 97.8 F MEDGEN ( [facility] , ) Inhaled oxygen 100 % 100 % MEDGEN ([facility], ) Diastolic blood 98 mm[Hg] 98 mm[Hg] MEDGEN (S t pressure [facility] , ) Systolic blood 158 mm[Hg] 158 mm[Hg] MEDGEN (St pressure [facility] , ) Body height 68 in 68 in MEDGEN ([place] , ) Heart rate 76 /min 76 /min MEDGEN ([facility] , ) Respiratory rate 12 /min 12 /min MEDGEN ( [facility] , ) Body temperature 97.8 F 97.8 F MEDGEN ( [facility]) Inhaled oxygen 100 % 100 % MEDGEN ([facility], ) Diastolic blood 98 mm[Hg] 98 mm[Hg] MEDGEN (S t pressure [facility] , ) Systolic blood 158 mm[Hg] 158 mm[Hg] MEDGEN ([facility] , ) Body height 68 in 68 in MEDGEN ([facility]) Heart rate 76 /min 76 /min MEDGEN ([facility]) Respiratory rate 12 /min 12 /min MEDGEN ( [facility]) Body temperature 97.8 F 97.8 F MEDGEN ( [facility]) Inhaled oxygen 100 % 100 % MEDGEN ([facility], ) Diastolic blood 98 mm[Hg] 98 mm[Hg] MEDGEN (S t [facility] , ) Systolic blood 158 mm[Hg] 158 mm[Hg] MEDGEN ([facility] , ) Body height 68 in 68 in MEDGEN ([facility]) Heart rate 76 /min 76 /min MEDGEN ([facility]) Respiratory rate 12 /min 12 /min MEDGEN ( [facility]) Body temperature 97.8 F 97.8 F MEDGEN ( [facility]) Inhaled oxygen 100 % 100 % MEDGEN ([facility], ) Diastolic blood 98 mm[Hg] 98 mm[Hg] MEDGEN (S t pressure [facility] , ) Systolic blood 158 mm[Hg] 158 mm[Hg] MEDGEN ([facility] , ) Body height 68 in 68 in MEDGEN ([facility]) Respiratory rate 12 /min 12 /min MEDGEN ( [facility] , ) Body temperature 97.8 F 97.8 F MEDGEN ( [facility]) Inhaled oxygen 100 % 100 % MEDGEN ([facility], ) Diastolic blood 98 mm[Hg] 98 mm[Hg] MEDGEN (S t pressure [facility] , ) Systolic blood 158 mm[Hg] 158 mm[Hg] MEDGEN ([facility] , ) Body height 68 in 68 in MEDGEN ([facility]) Heart rate 76 /min 76 /min MEDGEN ([facility] , ) Heart rate 76 /min 76 /min MEDGEN ([facility] , ) Respiratory rate 12 /min 12 /min MEDGEN ( [place] , ) Body temperature 97.8 F 97.8 F MEDGEN ( [facility] , ) Inhaled oxygen 100 % 100 % MEDGEN ([facility], ) Diastolic blood 98 mm[Hg] 98 mm[Hg] MEDGEN (S t pressure [facility] , ) Systolic blood 158 mm[Hg] 158 mm[Hg] MEDGEN ([facility] , ) Body height 68 in 68 in MEDGEN ([place] , ) Heart rate 74 /min 74 /min MEDGEN ([facility] , ) Respiratory rate 13 /min 13 /min MEDGEN ( [place] , ) Inhaled oxygen 100 % 100 % MEDGEN ([facility], ) Diastolic blood 73 mm[Hg] 73 mm[Hg] MEDGEN (S t pressure [facility] , ) Systolic blood 159 mm[Hg] 159 mm[Hg] MEDGEN ([facility] , ) Heart rate 74 /min 74 /min MEDGEN ([facility] , ) Respiratory rate 13 /min 13 /min MEDGEN ( [facility] , ) Inhaled oxygen 100 % 100 % MEDGEN ([facility], ) Diastolic blood 73 mm[Hg] 73 mm[Hg] MEDGEN (S t pressure [facility] , ) Systolic blood 159 mm[Hg] 159 mm[Hg] MEDGEN ([facility] , ) Heart rate 74 /min 74 /min MEDGEN ([facility] , ) Respiratory rate 13 /min 13 /min MEDGEN ( [facility] , ) Inhaled oxygen 100 % 100 % MEDGEN ([facility], ) Diastolic blood 73 mm[Hg] 73 mm[Hg] MEDGEN (S t pressure [facility] , ) Systolic blood 159 mm[Hg] 159 mm[Hg] MEDGEN ([facility] , ) Heart rate 74 /min 74 /min MEDGEN ([facility] Respiratory rate 13 /min 13 /min MEDGEN ( [facility]) Inhaled oxygen 100 % 100 % MEDGEN ([facility]) Diastolic blood 73 mm[Hg] 73 mm[Hg] MEDGEN (S t pressure [facility]) Systolic blood 159 mm[Hg] 159 mm[Hg] MEDGEN (St [facility]) Heart rate 74 /min 74 /min MEDGEN ([facility]) Respiratory rate 13 /min 13 /min MEDGEN ( [facility]) Inhaled oxygen 100 % 100 % MEDGEN ([facility]) Diastolic blood 73 mm[Hg] 73 mm[Hg] MEDGEN (S t pressure [facility]) Systolic blood 159 mm[Hg] 159 mm[Hg] MEDGEN (St [facility]) Heart rate 74 /min 74 /min MEDGEN ([facility]) Respiratory rate 13 /min 13 /min MEDGEN ( [facility]) Inhaled oxygen 100 % 100 % MEDGEN ([facility]) Diastolic blood 73 mm[Hg] 73 mm[Hg] MEDGEN (S t pressure [facility]) Systolic blood 159 mm[Hg] 159 mm[Hg] MEDGEN (St [facility]) Heart rate 74 /min 74 /min MEDGEN ([facility]) Respiratory rate 13 /min 13 /min MEDGEN ( [facility]) Inhaled oxygen 100 % 100 % MEDGEN ([facility]) Diastolic blood 73 mm[Hg] 73 mm[Hg] MEDGEN (S t pressure [facility]) Systolic blood 159 mm[Hg] 159 mm[Hg] MEDGEN (St [facility]) Heart rate 74 /min 74 /min MEDGEN ([facility]) Respiratory rate 13 /min 13 /min MEDGEN ( [facility] , ) Inhaled oxygen 100 % 100 % MEDGEN ([facility]) Diastolic blood 73 mm[Hg] 73 mm[Hg] MEDGEN (S t pressure [facility]) Systolic blood 159 mm[Hg] 159 mm[Hg] MEDGEN (St [facility]) Heart rate 74 /min 74 /min MEDGEN ([facility]) Respiratory rate 13 /min 13 /min MEDGEN ( [facility]) Inhaled oxygen 100 % 100 % MEDGEN ([facility]) Diastolic blood 73 mm[Hg] 73 mm[Hg] MEDGEN (S t pressure [facility]) Systolic blood 159 mm[Hg] 159 mm[Hg] MEDGEN (St [facility]) Heart rate 74 /min 74 /min MEDGEN ([facility]) Respiratory rate 13 /min 13 /min MEDGEN ( [facility] , ) Inhaled oxygen 100 % 100 % MEDGEN (St [facility]) Diastolic blood 73 mm[Hg] 73 mm[Hg] MEDGEN (S t pressure [facility]) Systolic blood 159 mm[Hg] 159 mm[Hg] MEDGEN (St [facility]) Heart rate 74 /min 74 /min MEDGEN ([facility]) Respiratory rate 13 /min 13 /min MEDGEN ( [facility]) Inhaled oxygen 100 % 100 % MEDGEN ([facility]) Diastolic blood 73 mm[Hg] 73 mm[Hg] MEDGEN (S t pressure [facility]) Systolic blood 159 mm[Hg] 159 mm[Hg] MEDGEN (St [facility]) Heart rate 74 /min 74 /min MEDGEN ([facility]) Respiratory rate 13 /min 13 /min MEDGEN ( [facility]) Inhaled oxygen 100 % 100 % MEDGEN ([facility]) Diastolic blood 73 mm[Hg] 73 mm[Hg] MEDGEN (S t pressure [facility]) Systolic blood 159 mm[Hg] 159 mm[Hg] MEDGEN (St [facility]) Heart rate 74 /min 74 /min MEDGEN ([facility]) Respiratory rate 13 /min 13 /min MEDGEN ( [facility]) Inhaled oxygen 100 % 100 % MEDGEN ([facility] concentration [facility]) Diastolic blood 73 mm[Hg] 73 mm[Hg] MEDGEN (S t pressure [facility]) Systolic blood 159 mm[Hg] 159 mm[Hg] MEDGEN (St [facility]) Heart rate 74 /min 74 /min MEDGEN ([facility]) Respiratory rate 13 /min 13 /min MEDGEN ( [facility] , ) Inhaled oxygen 100 % 100 % MEDGEN ([facility], ) Diastolic blood 73 mm[Hg] 73 mm[Hg] MEDGEN (S t pressure [facility]) Systolic blood 159 mm[Hg] 159 mm[Hg] MEDGEN (St [facility] , ) Heart rate 74 /min 74 /min MEDGEN ([facility] , ) Respiratory rate 13 /min 13 /min MEDGEN ( [facility] , ) Inhaled oxygen 100 % 100 % MEDGEN ([facility], ) Diastolic blood 73 mm[Hg] 73 mm[Hg] MEDGEN (S t pressure [facility]) Systolic blood 159 mm[Hg] 159 mm[Hg] MEDGEN (St [facility] , ) Heart rate 74 /min 74 /min MEDGEN ([facility] , ) Inhaled oxygen 100 % 100 % MEDGEN ([facility], ) Diastolic blood 89 mm[Hg] 89 mm[Hg] MEDGEN (S t pressure [facility]) Systolic blood 147 mm[Hg] 147 mm[Hg] MEDGEN (St pressure [facility] , ) Body weight 142 lb 142 lb MEDGEN ([facility] , ) Heart rate 74 /min 74 /min MEDGEN ([facility] , ) Inhaled oxygen 100 % 100 % MEDGEN ([facility], ) Diastolic blood 89 mm[Hg] 89 mm[Hg] MEDGEN (S t pressure [facility]) Systolic blood 147 mm[Hg] 147 mm[Hg] MEDGEN (St [facility] , ) Body weight 142 lb 142 lb MEDGEN ([facility] , ) Heart rate 74 /min 74 /min MEDGEN ([facility] , ) Inhaled oxygen 100 % 100 % MEDGEN ([facility], ) Diastolic blood 89 mm[Hg] 89 mm[Hg] MEDGEN (S t pressure [facility] , ) Systolic blood 147 mm[Hg] 147 mm[Hg] MEDGEN (St pressure [facility] , ) Body weight 142 lb 142 lb MEDGEN ([facility] , ) Heart rate 74 /min 74 /min MEDGEN ([facility] , ) Inhaled oxygen 100 % 100 % MEDGEN ([facility], ) Diastolic blood 89 mm[Hg] 89 mm[Hg] MEDGEN (S t pressure [facility]) Systolic blood 147 mm[Hg] 147 mm[Hg] MEDGEN ([facility] , ) Body weight 142 lb 142 lb MEDGEN ([facility] , ) Heart rate 74 /min 74 /min MEDGEN ([facility] , ) Inhaled oxygen 100 % 100 % MEDGEN ([facility], ) Diastolic blood 89 mm[Hg] 89 mm[Hg] MEDGEN (S t pressure [facility] , ) Systolic blood 147 mm[Hg] 147 mm[Hg] MEDGEN (St pressure [facility] , ) Body weight 142 lb 142 lb MEDGEN ([facility] , ) Heart rate 74 /min 74 /min MEDGEN ([facility] , ) Inhaled oxygen 100 % 100 % MEDGEN ([facility], ) Diastolic blood 89 mm[Hg] 89 mm[Hg] MEDGEN (S t pressure [facility]) Systolic blood 147 mm[Hg] 147 mm[Hg] MEDGEN (St pressure [facility] , ) Body weight 142 lb 142 lb MEDGEN ([facility] , ) Heart rate 74 /min 74 /min MEDGEN ([place] , ) Inhaled oxygen 100 % 100 % MEDGEN ([facility], ) Diastolic blood 89 mm[Hg] 89 mm[Hg] MEDGEN (S t pressure [facility]) Systolic blood 147 mm[Hg] 147 mm[Hg] MEDGEN (St pressure [facility] , ) Body weight 142 lb 142 lb MEDGEN ([facility] , ) Heart rate 74 /min 74 /min MEDGEN ([facility] , ) Inhaled oxygen 100 % 100 % MEDGEN ([facility], ) Diastolic blood 89 mm[Hg] 89 mm[Hg] MEDGEN (S t [facility] , ) Systolic blood 147 mm[Hg] 147 mm[Hg] MEDGEN ([facility] , ) Body weight 142 lb 142 lb MEDGEN ([facility]) Heart rate 74 /min 74 /min MEDGEN ([facility] , ) Inhaled oxygen 100 % 100 % MEDGEN ([facility], ) Diastolic blood 89 mm[Hg] 89 mm[Hg] MEDGEN (S t [facility] , ) Systolic blood 147 mm[Hg] 147 mm[Hg] MEDGEN ([facility] , ) Body weight 142 lb 142 lb MEDGEN ([facility]) Heart rate 74 /min 74 /min MEDGEN ([facility] , ) Inhaled oxygen 100 % 100 % MEDGEN ([facility], ) Diastolic blood 89 mm[Hg] 89 mm[Hg] MEDGEN (S t [facility] , ) Systolic blood 147 mm[Hg] 147 mm[Hg] MEDGEN ([facility] , ) Body weight 142 lb 142 lb MEDGEN ([facility]) Heart rate 74 /min 74 /min MEDGEN ([facility] , ) Inhaled oxygen 100 % 100 % MEDGEN ([facility], ) Diastolic blood 89 mm[Hg] 89 mm[Hg] MEDGEN (S t [facility] , ) Systolic blood 147 mm[Hg] 147 mm[Hg] MEDGEN ([facility] , ) Body weight 142 lb 142 lb MEDGEN ([facility]) Heart rate 74 /min 74 /min MEDGEN ([facility] , ) Inhaled oxygen 100 % 100 % MEDGEN ([facility], ) Diastolic blood 89 mm[Hg] 89 mm[Hg] MEDGEN (S t pressure [facility] , ) Systolic blood 147 mm[Hg] 147 mm[Hg] MEDGEN ([facility] , ) Body weight 142 lb 142 lb MEDGEN ([facility]) Heart rate 74 /min 74 /min MEDGEN ([facility] , ) Inhaled oxygen 100 % 100 % MEDGEN ( concentration [facility], ) Diastolic blood 89 mm[Hg] 89 mm[Hg] MEDGEN (S t pressure [facility] , ) Systolic blood 147 mm[Hg] 147 mm[Hg] MEDGEN ([facility] , ) Body weight 142 lb 142 lb MEDGEN ([facility]) Heart rate 74 /min 74 /min MEDGEN ([facility] , ) Inhaled oxygen 100 % 100 % MEDGEN ([facility], ) Diastolic blood 89 mm[Hg] 89 mm[Hg] MEDGEN (S t pressure [facility] , ) Systolic blood 147 mm[Hg] 147 mm[Hg] MEDGEN ([facility] , ) Body weight 142 lb 142 lb MEDGEN ([facility]) Heart rate 74 /min 74 /min MEDGEN ([facility] , ) Inhaled oxygen 100 % 100 % MEDGEN ([facility], ) Diastolic blood 89 mm[Hg] 89 mm[Hg] MEDGEN (S t pressure [facility] , ) Systolic blood 147 mm[Hg] 147 mm[Hg] MEDGEN ([facility] , ) Body weight 142 lb 142 lb MEDGEN ([facility]) Heart rate 79 /min 79 /min MEDGEN ([facility]) Respiratory rate 12 /min 12 /min MEDGEN ( [facility]) Body mass index 23.2 kg/m2 23.2 kg/m2 MEDGEN (S t (BMI) [Ratio] [facility], ) Diastolic blood 86 mm[Hg] 86 mm[Hg] MEDGEN (S t pressure [facility] , ) Systolic blood 143 mm[Hg] 143 mm[Hg] MEDGEN ([facility] , ) Body weight 144 lb 144 lb MEDGEN ([facility]) Body height 66 in 66 in MEDGEN ([facility]) Heart rate 79 /min 79 /min MEDGEN ([facility]) Respiratory rate 12 /min 12 /min MEDGEN ( [facility] , ) Body mass index 23.2 kg/m2 23.2 kg/m2 MEDGEN (S t (BMI) [Ratio] [facility], ) Diastolic blood 86 mm[Hg] 86 mm[Hg] MEDGEN (S t pressure [facility] , ) Systolic blood 143 mm[Hg] 143 mm[Hg] MEDGEN ([facility] , ) Body weight 144 lb 144 lb MEDGEN ([facility]) Body height 66 in 66 in MEDGEN ([facility]) Heart rate 79 /min 79 /min MEDGEN ([facility]) Respiratory rate 12 /min 12 /min MEDGEN ( [facility] , ) Body mass index 23.2 kg/m2 23.2 kg/m2 MEDGEN (S t (BMI) [Ratio] [facility], ) Diastolic blood 86 mm[Hg] 86 mm[Hg] MEDGEN (S t pressure [facility] , ) Systolic blood 143 mm[Hg] 143 mm[Hg] MEDGEN ([facility] , ) Body weight 144 lb 144 lb MEDGEN ([facility]) Body height 66 in 66 in MEDGEN ([facility]) Heart rate 79 /min 79 /min MEDGEN ([facility]) Respiratory rate 12 /min 12 /min MEDGEN ( [facility]) Body mass index 23.2 kg/m2 23.2 kg/m2 MEDGEN (S t (BMI) [Ratio] [facility], ) Diastolic blood 86 mm[Hg] 86 mm[Hg] MEDGEN (S t pressure [facility] , ) Systolic blood 143 mm[Hg] 143 mm[Hg] MEDGEN ([facility] , ) Body weight 144 lb 144 lb MEDGEN ([facility]) Body height 66 in 66 in MEDGEN ([facility]) Heart rate 79 /min 79 /min MEDGEN ([facility]) Respiratory rate 12 /min 12 /min MEDGEN ( [facility] , ) Body mass index 23.2 kg/m2 23.2 kg/m2 MEDGEN (S t (BMI) [Ratio] [facility], ) Diastolic blood 86 mm[Hg] 86 mm[Hg] MEDGEN (S t pressure [facility] , ) Systolic blood 143 mm[Hg] 143 mm[Hg] MEDGEN (St pressure [facility] , ) Body weight 144 lb 144 lb MEDGEN ([facility] , ) Body height 66 in 66 in MEDGEN ([facility] , ) Heart rate 79 /min 79 /min MEDGEN ([place] , ) Respiratory rate 12 /min 12 /min MEDGEN ( [facility] , ) Body mass index 23.2 kg/m2 23.2 kg/m2 MEDGEN (S t (BMI) [Ratio] [facility], ) Diastolic blood 86 mm[Hg] 86 mm[Hg] MEDGEN (S t pressure [facility] , ) Systolic blood 143 mm[Hg] 143 mm[Hg] MEDGEN ([facility] , ) Body weight 144 lb 144 lb MEDGEN ([facility] , ) Body height 66 in 66 in MEDGEN ([place] , ) Heart rate 79 /min 79 /min MEDGEN ([facility] , ) Respiratory rate 12 /min 12 /min MEDGEN ( [place] , ) Body mass index 23.2 kg/m2 23.2 kg/m2 MEDGEN (S t (BMI) [Ratio] [facility], ) Diastolic blood 86 mm[Hg] 86 mm[Hg] MEDGEN (S t pressure [facility] , ) Systolic blood 143 mm[Hg] 143 mm[Hg] MEDGEN (St pressure [facility] , ) Body weight 144 lb 144 lb MEDGEN ([facility] , ) Body height 66 in 66 in MEDGEN ([facility] , ) Heart rate 79 /min 79 /min MEDGEN ([facility] , ) Respiratory rate 12 /min 12 /min MEDGEN ( [facility] , ) Body mass index 23.2 kg/m2 23.2 kg/m2 MEDGEN (S t (BMI) [Ratio] [facility], ) Diastolic blood 86 mm[Hg] 86 mm[Hg] MEDGEN (S t pressure [facility]) Systolic blood 143 mm[Hg] 143 mm[Hg] MEDGEN (St [facility]) Body weight 144 lb 144 lb MEDGEN ([facility]) Body height 66 in 66 in MEDGEN ([facility]) Heart rate 79 /min 79 /min MEDGEN ([facility]) Respiratory rate 12 /min 12 /min MEDGEN ( [facility]) Body mass index 23.2 kg/m2 23.2 kg/m2 MEDGEN (S t (BMI) [Ratio] [facility], ) Diastolic blood 86 mm[Hg] 86 mm[Hg] MEDGEN (S t [facility]) Systolic blood 143 mm[Hg] 143 mm[Hg] MEDGEN ([facility]) Body weight 144 lb 144 lb MEDGEN ([facility]) Body height 66 in 66 in MEDGEN ([facility]) Heart rate 79 /min 79 /min MEDGEN ([facility]) Respiratory rate 12 /min 12 /min MEDGEN ( [facility]) Body mass index 23.2 kg/m2 23.2 kg/m2 MEDGEN (S t (BMI) [Ratio] [facility], ) Diastolic blood 86 mm[Hg] 86 mm[Hg] MEDGEN (S t pressure [facility]) Systolic blood 143 mm[Hg] 143 mm[Hg] MEDGEN ([facility]) Body weight 144 lb 144 lb MEDGEN ([facility]) Body height 66 in 66 in MEDGEN ([facility]) Heart rate 79 /min 79 /min MEDGEN ([facility]) Respiratory rate 12 /min 12 /min MEDGEN ( [facility]) Body mass index 23.2 kg/m2 23.2 kg/m2 MEDGEN (S t (BMI) [Ratio] [facility], ) Diastolic blood 86 mm[Hg] 86 mm[Hg] MEDGEN (S t pressure [facility]) Systolic blood 143 mm[Hg] 143 mm[Hg] MEDGEN ([facility] , ) Body weight 144 lb 144 lb MEDGEN ([facility]) Body height 66 in 66 in MEDGEN ([facility]) Heart rate 79 /min 79 /min MEDGEN ([facility]) Respiratory rate 12 /min 12 /min MEDGEN ( [facility] , ) Body mass index 23.2 kg/m2 23.2 kg/m2 MEDGEN (S t (BMI) [Ratio] [facility], ) Diastolic blood 86 mm[Hg] 86 mm[Hg] MEDGEN (S t pressure [facility] , ) Systolic blood 143 mm[Hg] 143 mm[Hg] MEDGEN ([facility] , ) Body weight 144 lb 144 lb MEDGEN ([facility]) Body height 66 in 66 in MEDGEN ([facility]) Heart rate 79 /min 79 /min MEDGEN ([facility] , ) Respiratory rate 12 /min 12 /min MEDGEN ( [facility] , ) Body mass index 23.2 kg/m2 23.2 kg/m2 MEDGEN (S t (BMI) [Ratio] [facility], ) Diastolic blood 86 mm[Hg] 86 mm[Hg] MEDGEN (S t pressure [facility] , ) Systolic blood 143 mm[Hg] 143 mm[Hg] MEDGEN ([facility] , ) Body weight 144 lb 144 lb MEDGEN ([facility]) Body height 66 in 66 in MEDGEN ([facility]) Heart rate 79 /min 79 /min MEDGEN ([facility]) Respiratory rate 12 /min 12 /min MEDGEN ( [facility] , ) Body mass index 23.2 kg/m2 23.2 kg/m2 MEDGEN (S t (BMI) [Ratio] [facility], ) Diastolic blood 86 mm[Hg] 86 mm[Hg] MEDGEN (S t pressure [facility] , ) Systolic blood 143 mm[Hg] 143 mm[Hg] MEDGEN ([facility] , ) Body weight 144 lb 144 lb MEDGEN ([facility]) Body height 66 in 66 in MEDGEN ([facility]) Heart rate 79 /min 79 /min MEDGEN ([facility]) Respiratory rate 12 /min 12 /min MEDGEN ( [facility] , ) Body mass index 23.2 kg/m2 23.2 kg/m2 MEDGEN (S t (BMI) [Ratio] [facility], ) Diastolic blood 86 mm[Hg] 86 mm[Hg] MEDGEN (S t pressure [facility] , ) Systolic blood 143 mm[Hg] 143 mm[Hg] MEDGEN ([facility] , ) Body weight 144 lb 144 lb MEDGEN ([facility] , ) Body height 66 in 66 in MEDGEN ([facility] , ) Heart rate 67 /min 67 /min MEDGEN ([facility] , ) Respiratory rate 13 /min 13 /min MEDGEN ( [facility] , ) Inhaled oxygen 99 % 99 % MEDGEN ([facility], ) Diastolic blood 87 mm[Hg] 87 mm[Hg] MEDGEN (S t pressure [facility] , ) Systolic blood 134 mm[Hg] 134 mm[Hg] MEDGEN ([facility] , ) Heart rate 67 /min 67 /min MEDGEN ([facility] , ) Respiratory rate 13 /min 13 /min MEDGEN ( [facility] , ) Inhaled oxygen 99 % 99 % MEDGEN ([facility], ) Diastolic blood 87 mm[Hg] 87 mm[Hg] MEDGEN (S t pressure [facility] , ) Systolic blood 134 mm[Hg] 134 mm[Hg] MEDGEN ([facility] , ) Heart rate 67 /min 67 /min MEDGEN ([facility] , ) Respiratory rate 13 /min 13 /min MEDGEN ( [facility] , ) Inhaled oxygen 99 % 99 % MEDGEN ([facility], ) Diastolic blood 87 mm[Hg] 87 mm[Hg] MEDGEN (S t pressure [facility] , ) Systolic blood 134 mm[Hg] 134 mm[Hg] MEDGEN ([facility] , ) Heart rate 67 /min 67 /min MEDGEN ([facility] , ) Respiratory rate 13 /min 13 /min MEDGEN ( [facility] , ) Inhaled oxygen 99 % 99 % MEDGEN (St concentration [facility], ) Diastolic blood 87 mm[Hg] 87 mm[Hg] MEDGEN (S t pressure [facility]) Systolic blood 134 mm[Hg] 134 mm[Hg] MEDGEN (St [facility] , ) Heart rate 67 /min 67 /min MEDGEN ([facility] , ) Respiratory rate 13 /min 13 /min MEDGEN ( [facility] , ) Inhaled oxygen 99 % 99 % MEDGEN (St concentration [facility], ) Diastolic blood 87 mm[Hg] 87 mm[Hg] MEDGEN (S t pressure [facility] , ) Systolic blood 134 mm[Hg] 134 mm[Hg] MEDGEN (St pressure [facility] , ) Heart rate 67 /min 67 /min MEDGEN ([facility] , ) Respiratory rate 13 /min 13 /min MEDGEN ( [facility] , ) Inhaled oxygen 99 % 99 % MEDGEN (St concentration [facility], ) Diastolic blood 87 mm[Hg] 87 mm[Hg] MEDGEN (S t pressure [facility]) Systolic blood 134 mm[Hg] 134 mm[Hg] MEDGEN (St pressure [facility] , ) Heart rate 67 /min 67 /min MEDGEN ([facility] , ) Respiratory rate 13 /min 13 /min MEDGEN ( [facility] , ) Inhaled oxygen 99 % 99 % MEDGEN ([facility], ) Diastolic blood 87 mm[Hg] 87 mm[Hg] MEDGEN (S t pressure [facility]) Systolic blood 134 mm[Hg] 134 mm[Hg] MEDGEN (St [facility] , ) Heart rate 67 /min 67 /min MEDGEN ([facility] , ) Respiratory rate 13 /min 13 /min MEDGEN ( [facility] , ) Inhaled oxygen 99 % 99 % MEDGEN ([facility], ) Diastolic blood 87 mm[Hg] 87 mm[Hg] MEDGEN (S t pressure [facility]) Systolic blood 134 mm[Hg] 134 mm[Hg] MEDGEN (St pressure [facility] , ) Heart rate 67 /min 67 /min MEDGEN ([facility]) Respiratory rate 13 /min 13 /min MEDGEN ( [facility]) Inhaled oxygen 99 % 99 % MEDGEN (St [facility]) Diastolic blood 87 mm[Hg] 87 mm[Hg] MEDGEN (S t pressure [facility]) Systolic blood 134 mm[Hg] 134 mm[Hg] MEDGEN (St [facility]) Heart rate 67 /min 67 /min MEDGEN ([facility]) Respiratory rate 13 /min 13 /min MEDGEN ( [facility] , ) Inhaled oxygen 99 % 99 % MEDGEN (St concentration [facility]) Diastolic blood 87 mm[Hg] 87 mm[Hg] MEDGEN (S t pressure [facility]) Systolic blood 134 mm[Hg] 134 mm[Hg] MEDGEN (St [facility]) Heart rate 67 /min 67 /min MEDGEN ([facility]) Respiratory rate 13 /min 13 /min MEDGEN ( [facility]) Inhaled oxygen 99 % 99 % MEDGEN (St concentration [facility]) Diastolic blood 87 mm[Hg] 87 mm[Hg] MEDGEN (S t pressure [facility]) Systolic blood 134 mm[Hg] 134 mm[Hg] MEDGEN (St [facility]) Heart rate 67 /min 67 /min MEDGEN ([facility]) Respiratory rate 13 /min 13 /min MEDGEN ( [facility] , ) Inhaled oxygen 99 % 99 % MEDGEN (St concentration [facility]) Diastolic blood 87 mm[Hg] 87 mm[Hg] MEDGEN (S t pressure [facility]) Systolic blood 134 mm[Hg] 134 mm[Hg] MEDGEN (St [facility]) Heart rate 67 /min 67 /min MEDGEN ([facility]) Respiratory rate 13 /min 13 /min MEDGEN ( [facility] , ) Inhaled oxygen 99 % 99 % MEDGEN (St concentration [facility]) Diastolic blood 87 mm[Hg] 87 mm[Hg] MEDGEN (S t pressure [facility]) Systolic blood 134 mm[Hg] 134 mm[Hg] MEDGEN (St [facility] , ) Heart rate 67 /min 67 /min MEDGEN ([facility] , ) Respiratory rate 13 /min 13 /min MEDGEN ( [facility] , ) Inhaled oxygen 99 % 99 % MEDGEN ([facility], ) Diastolic blood 87 mm[Hg] 87 mm[Hg] MEDGEN (S t pressure [facility] , ) Systolic blood 134 mm[Hg] 134 mm[Hg] MEDGEN (St [facility] , ) Heart rate 67 /min 67 /min MEDGEN ([facility] , ) Respiratory rate 13 /min 13 /min MEDGEN ( [facility] , ) Inhaled oxygen 99 % 99 % MEDGEN ([facility], ) Diastolic blood 87 mm[Hg] 87 mm[Hg] MEDGEN (S t pressure [facility] , ) Systolic blood 134 mm[Hg] 134 mm[Hg] MEDGEN (St [facility] , ) Heart rate 85 /min 85 /min MEDGEN ([facility] , ) Respiratory rate 14 /min 14 /min MEDGEN ( [facility] , ) Body temperature 98.5 F 98.5 F MEDGEN ( [facility] , ) Diastolic blood 95 mm[Hg] 95 mm[Hg] MEDGEN (S t pressure [facility]) Systolic blood 151 mm[Hg] 151 mm[Hg] MEDGEN (St pressure [facility] , ) Body weight 159 lb 159 lb MEDGEN ([facility] , ) Heart rate 85 /min 85 /min MEDGEN ([facility] , ) Respiratory rate 14 /min 14 /min MEDGEN ( [facility] , ) Body temperature 98.5 F 98.5 F MEDGEN ( [facility] , ) Diastolic blood 95 mm[Hg] 95 mm[Hg] MEDGEN (S t pressure [facility] , ) Systolic blood 151 mm[Hg] 151 mm[Hg] MEDGEN (St pressure [facility] , ) Body weight 159 lb 159 lb MEDGEN ([facility] , ) Heart rate 85 /min 85 /min MEDGEN ([facility] , ) Respiratory rate 14 /min 14 /min MEDGEN ( [facility] , ) Body temperature 98.5 F 98.5 F MEDGEN ( [facility] , ) Diastolic blood 95 mm[Hg] 95 mm[Hg] MEDGEN (S t pressure [facility] , ) Systolic blood 151 mm[Hg] 151 mm[Hg] MEDGEN ([facility] , ) Body weight 159 lb 159 lb MEDGEN ([facility]) Heart rate 85 /min 85 /min MEDGEN ([facility] , ) Respiratory rate 14 /min 14 /min MEDGEN ( [facility] , ) Body temperature 98.5 F 98.5 F MEDGEN ( [facility] , ) Diastolic blood 95 mm[Hg] 95 mm[Hg] MEDGEN (S [facility] , ) Systolic blood 151 mm[Hg] 151 mm[Hg] MEDGEN ([facility] , ) Body weight 159 lb 159 lb MEDGEN ([facility]) Heart rate 85 /min 85 /min MEDGEN ([facility] , ) Respiratory rate 14 /min 14 /min MEDGEN ( [facility] , ) Body temperature 98.5 F 98.5 F MEDGEN ( [facility] , ) Diastolic blood 95 mm[Hg] 95 mm[Hg] MEDGEN (S [facility] , ) Systolic blood 151 mm[Hg] 151 mm[Hg] MEDGEN ([facility] , ) Body weight 159 lb 159 lb MEDGEN ([facility] , ) Heart rate 85 /min 85 /min MEDGEN ([facility] , ) Respiratory rate 14 /min 14 /min MEDGEN ( [facility] , ) Body temperature 98.5 F 98.5 F MEDGEN ( [facility] , ) Diastolic blood 95 mm[Hg] 95 mm[Hg] MEDGEN (S t pressure [facility] , ) Systolic blood 151 mm[Hg] 151 mm[Hg] MEDGEN ([facility] , ) Body weight 159 lb 159 lb MEDGEN ([facility]) Heart rate 85 /min 85 /min MEDGEN ([facility]) Respiratory rate 14 /min 14 /min MEDGEN ( [facility] , ) Body temperature 98.5 F 98.5 F MEDGEN ( [facility] , ) Diastolic blood 95 mm[Hg] 95 mm[Hg] MEDGEN (S t pressure [facility] , ) Systolic blood 151 mm[Hg] 151 mm[Hg] MEDGEN ([facility] , ) Body weight 159 lb 159 lb MEDGEN ([facility]) Heart rate 85 /min 85 /min MEDGEN ([facility] , ) Respiratory rate 14 /min 14 /min MEDGEN ( [facility] , ) Body temperature 98.5 F 98.5 F MEDGEN ( [facility] , ) Diastolic blood 95 mm[Hg] 95 mm[Hg] MEDGEN ([facility] , ) Systolic blood 151 mm[Hg] 151 mm[Hg] MEDGEN ([facility] , ) Body weight 159 lb 159 lb MEDGEN ([facility]) Heart rate 85 /min 85 /min MEDGEN ([facility] , ) Respiratory rate 14 /min 14 /min MEDGEN ( [facility] , ) Body temperature 98.5 F 98.5 F MEDGEN ( [facility] , ) Diastolic blood 95 mm[Hg] 95 mm[Hg] MEDGEN (S [facility] , ) Systolic blood 151 mm[Hg] 151 mm[Hg] MEDGEN ([facility] , ) Body weight 159 lb 159 lb MEDGEN ([facility] , ) Heart rate 85 /min 85 /min MEDGEN ([facility] , ) Respiratory rate 14 /min 14 /min MEDGEN ( [facility] , ) Body temperature 98.5 F 98.5 F MEDGEN ( [facility] , ) Diastolic blood 95 mm[Hg] 95 mm[Hg] MEDGEN (S t pressure [facility] , ) Systolic blood 151 mm[Hg] 151 mm[Hg] MEDGEN ([facility] , ) Body weight 159 lb 159 lb MEDGEN ([facility]) Heart rate 85 /min 85 /min MEDGEN ([facility]) Respiratory rate 14 /min 14 /min MEDGEN ( [facility] , ) Body temperature 98.5 F 98.5 F MEDGEN ( [facility] , ) Diastolic blood 95 mm[Hg] 95 mm[Hg] MEDGEN (S t pressure [facility] , ) Systolic blood 151 mm[Hg] 151 mm[Hg] MEDGEN ([facility] , ) Body weight 159 lb 159 lb MEDGEN ([facility]) Heart rate 85 /min 85 /min MEDGEN ([facility] , ) Respiratory rate 14 /min 14 /min MEDGEN ( [facility] , ) Body temperature 98.5 F 98.5 F MEDGEN ( [facility] , ) Diastolic blood 95 mm[Hg] 95 mm[Hg] MEDGEN ([facility] , ) Systolic blood 151 mm[Hg] 151 mm[Hg] MEDGEN ([facility] , ) Body weight 159 lb 159 lb MEDGEN ([facility]) Heart rate 85 /min 85 /min MEDGEN ([facility] , ) Respiratory rate 14 /min 14 /min MEDGEN ( [facility] , ) Body temperature 98.5 F 98.5 F MEDGEN ( [facility] , ) Diastolic blood 95 mm[Hg] 95 mm[Hg] MEDGEN ([facility] , ) Systolic blood 151 mm[Hg] 151 mm[Hg] MEDGEN ([facility] , ) Body weight 159 lb 159 lb MEDGEN ([facility] , ) Heart rate 85 /min 85 /min MEDGEN ([facility] , ) Respiratory rate 14 /min 14 /min MEDGEN ( [facility] , ) Body temperature 98.5 F 98.5 F MEDGEN ( [facility] , ) Diastolic blood 95 mm[Hg] 95 mm[Hg] MEDGEN (S t pressure [facility] , ) Systolic blood 151 mm[Hg] 151 mm[Hg] MEDGEN ([facility] , ) Body weight 159 lb 159 lb MEDGEN ([facility]) Heart rate 85 /min 85 /min MEDGEN ([facility]) Respiratory rate 14 /min 14 /min MEDGEN ( [facility] , ) Body temperature 98.5 F 98.5 F MEDGEN ( [facility] , ) Diastolic blood 95 mm[Hg] 95 mm[Hg] MEDGEN (S t pressure [facility] , ) Systolic blood 151 mm[Hg] 151 mm[Hg] MEDGEN ([facility] , ) Body weight 159 lb 159 lb MEDGEN ([facility] , ) Heart rate 76 /min 76 /min MEDGEN ([facility] , ) Respiratory rate 16 /min 16 /min MEDGEN ( [facility] , ) Diastolic blood 105 mm[Hg] 105 mm[Hg] MEDGEN (S t pressure [facility] , ) Systolic blood 178 mm[Hg] 178 mm[Hg] MEDGEN ([facility] , ) Heart rate 76 /min 76 /min MEDGEN ([facility] , ) Respiratory rate 16 /min 16 /min MEDGEN ( [facility] , ) Diastolic blood 105 mm[Hg] 105 mm[Hg] MEDGEN (S t pressure [facility] , ) Systolic blood 178 mm[Hg] 178 mm[Hg] MEDGEN (St pressure [facility] , ) Heart rate 76 /min 76 /min MEDGEN ([facility] , ) Respiratory rate 16 /min 16 /min MEDGEN ( [facility] , ) Diastolic blood 105 mm[Hg] 105 mm[Hg] MEDGEN (S t pressure [facility] , ) Systolic blood 178 mm[Hg] 178 mm[Hg] MEDGEN (St pressure [facility] , ) Heart rate 76 /min 76 /min MEDGEN ([facility] , ) Respiratory rate 16 /min 16 /min MEDGEN ( [facility] , ) Diastolic blood 105 mm[Hg] 105 mm[Hg] MEDGEN (S t pressure [facility] , ) Systolic blood 178 mm[Hg] 178 mm[Hg] MEDGEN (St [facility] , ) Heart rate 76 /min 76 /min MEDGEN ([facility] , ) Respiratory rate 16 /min 16 /min MEDGEN ( [facility] , ) Diastolic blood 105 mm[Hg] 105 mm[Hg] MEDGEN (S t pressure [facility]) Systolic blood 178 mm[Hg] 178 mm[Hg] MEDGEN (St [facility]) Heart rate 76 /min 76 /min MEDGEN ([facility]) Respiratory rate 16 /min 16 /min MEDGEN ( [facility]) Diastolic blood 105 mm[Hg] 105 mm[Hg] MEDGEN (S t pressure [facility]) Systolic blood 178 mm[Hg] 178 mm[Hg] MEDGEN (St [facility]) Heart rate 76 /min 76 /min MEDGEN ([facility]) Respiratory rate 16 /min 16 /min MEDGEN ( [facility]) Diastolic blood 105 mm[Hg] 105 mm[Hg] MEDGEN (S t pressure [facility]) Systolic blood 178 mm[Hg] 178 mm[Hg] MEDGEN (St [facility]) Heart rate 76 /min 76 /min MEDGEN ([facility]) Respiratory rate 16 /min 16 /min MEDGEN ( [facility]) Diastolic blood 105 mm[Hg] 105 mm[Hg] MEDGEN (S t pressure [facility]) Systolic blood 178 mm[Hg] 178 mm[Hg] MEDGEN ([facility]) Heart rate 76 /min 76 /min MEDGEN ([facility]) Respiratory rate 16 /min 16 /min MEDGEN ( [facility]) Diastolic blood 105 mm[Hg] 105 mm[Hg] MEDGEN (S t pressure [facility]) Systolic blood 178 mm[Hg] 178 mm[Hg] MEDGEN ([facility]) Heart rate 76 /min 76 /min MEDGEN ([facility]) Respiratory rate 16 /min 16 /min MEDGEN ( [facility]) Diastolic blood 105 mm[Hg] 105 mm[Hg] MEDGEN (S t pressure [facility]) Systolic blood 178 mm[Hg] 178 mm[Hg] MEDGEN (St [facility]) Heart rate 76 /min 76 /min MEDGEN ([facility]) Respiratory rate 16 /min 16 /min MEDGEN ( [facility] , ) Diastolic blood 105 mm[Hg] 105 mm[Hg] MEDGEN (S t pressure [facility]) Systolic blood 178 mm[Hg] 178 mm[Hg] MEDGEN ([facility]) Heart rate 76 /min 76 /min MEDGEN ([facility] , ) Respiratory rate 16 /min 16 /min MEDGEN ( [facility] , ) Diastolic blood 105 mm[Hg] 105 mm[Hg] MEDGEN (S t pressure [facility]) Systolic blood 178 mm[Hg] 178 mm[Hg] MEDGEN (St [facility] , ) Heart rate 76 /min 76 /min MEDGEN ([facility] , ) Respiratory rate 16 /min 16 /min MEDGEN ( [facility] , ) Diastolic blood 105 mm[Hg] 105 mm[Hg] MEDGEN (S t pressure [facility]) Systolic blood 178 mm[Hg] 178 mm[Hg] MEDGEN (St [facility] , ) Heart rate 76 /min 76 /min MEDGEN ([facility] , ) Respiratory rate 16 /min 16 /min MEDGEN ( [facility] , ) Diastolic blood 105 mm[Hg] 105 mm[Hg] MEDGEN (S t pressure [facility]) Systolic blood 178 mm[Hg] 178 mm[Hg] MEDGEN (St [facility] , ) Heart rate 76 /min 76 /min MEDGEN ([facility] , ) Respiratory rate 16 /min 16 /min MEDGEN ( [facility] , ) Diastolic blood 105 mm[Hg] 105 mm[Hg] MEDGEN (S t pressure [facility] , ) Systolic blood 178 mm[Hg] 178 mm[Hg] MEDGEN (St [facility] , ) Body temperature 36.722382 [id number] [facility] Respiratory rate 18 /min 18 /min [facility] Oxygen saturation 98 % 98 % [facility] blood [facility] by Pulse oximetry Heart rate 77 /min 77 /min [facility] Diastolic blood 90 mm[Hg] 90 mm[Hg] [facility] Systolic blood 157 mm[Hg] 157 mm[Hg] [facility] Diastolic blood 114 mm[Hg] 114 mm[Hg] [facility] pressure [facility] Systolic blood 192 mm[Hg] 192 mm[Hg] [facility] Body temperature [id number] [facility] Respiratory rate 16 /min 16 /min [facility] Oxygen saturation 99 % 99 % [facility] Ar[facility] blood [facility] by Pulse oximetry Heart rate 78 /min 78 /min [facility] Diastolic blood 91 mm[Hg] 91 mm[Hg] [facility] pressure [facility] Center Systolic blood 154 mm[Hg] 154 mm[Hg] [facility] Body temperature [id number] [id number] [facility] Respiratory rate 81 /min 81 /min [facility] Oxygen saturation 98 % 98 % [facility] Arter[facility] blood [facility] by Pulse oximetry Heart rate 81 /min 81 /min [facility] Diastolic blood 110 mm[Hg] 110 mm[Hg] [facility] Systolic blood 178 mm[Hg] 178 mm[Hg] [facility] Body temperature [id number] [facility] Respiratory rate 21 /min 21 /min [facility] Oxygen saturation 97 % 97 % [facility] Arterial blood [facility] by Pulse oximetry Heart rate 73 /min 73 /min [facility] Diastolic blood 100 mm[Hg] 100 mm[Hg] [facility] pressure [facility] Systolic blood 176 mm[Hg] 176 mm[Hg] [facility] Body temperature [id number] [facility] Respiratory rate 18 /min 18 /min [facility] Oxygen saturation 98 % 98 % [facility] Arterial blood [facility] by Pulse oximetry Heart rate 76 /min 76 /min [facility] Body weight 65.066075 65.129509 kg [facility] Measured kg [facility] Body height 170.828538 170.260707 cm [facility] Body mass index 22.7 kg/m2 22.7 kg/m2 [facility] (BMI) [Ratio] [facility] Heart rate 85 /min 85 /min [facility] ([facility] Respiratory rate 14 /min 14 /min [facility] ( [facility] Diastolic blood 97 mm[Hg] 97 mm[Hg] [facility] (S t [facility]) Systolic blood 164 mm[Hg] 164 mm[Hg] [facility] (St [facility]) Heart rate 85 /min 85 /min [facility] ([facility] Respiratory rate 14 /min 14 /min [facility] ( [facility] Diastolic blood 97 mm[Hg] 97 mm[Hg] [facility] (S t [facility]) Systolic blood 164 mm[Hg] 164 mm[Hg] [facility] ([facility]) Heart rate 85 /min 85 /min [facility] ([facility] Respiratory rate 14 /min 14 /min [facility] ( [facility] Diastolic blood 97 mm[Hg] 97 mm[Hg] [facility] (S t pressure [facility]) Systolic blood 164 mm[Hg] 164 mm[Hg] [facility] ([facility]) Heart rate 85 /min 85 /min [facility] ([facility] Respiratory rate 14 /min 14 /min [facility] ( [facility] Diastolic blood 97 mm[Hg] 97 mm[Hg] [facility] (S t pressure [facility]) Systolic blood 164 mm[Hg] 164 mm[Hg] [facility] ([facility]) Heart rate 85 /min 85 /min [facility] ([facility] Respiratory rate 14 /min 14 /min [facility] ( [facility] Diastolic blood 97 mm[Hg] 97 mm[Hg] [facility] (S t [facility]) Systolic blood 164 mm[Hg] 164 mm[Hg] [facility] ([facility]) Heart rate 85 /min 85 /min [facility] ([facility] Respiratory rate 14 /min 14 /min [facility] ( [facility] Diastolic blood 97 mm[Hg] 97 mm[Hg] [facility] (S t [facility]) Systolic blood 164 mm[Hg] 164 mm[Hg] [facility] ([facility]) Heart rate 85 /min 85 /min [facility] ([facility] Respiratory rate 14 /min 14 /min [facility] ( [facility] Diastolic blood 97 mm[Hg] 97 mm[Hg] [facility] (S t pressure [facility]) Systolic blood 164 mm[Hg] 164 mm[Hg] [facility] ([facility] Heart rate 85 /min 85 /min [facility] ([facility] Respiratory rate 14 /min 14 /min [facility] ( [facility] Diastolic blood 97 mm[Hg] 97 mm[Hg] [facility] (S t [facility]) Systolic blood 164 mm[Hg] 164 mm[Hg] [facility] ([facility] Heart rate 85 /min 85 /min [facility] ([facility] Respiratory rate 14 /min 14 /min [facility] ( [facility] Diastolic blood 97 mm[Hg] 97 mm[Hg] [facility] (S t pressure [facility]) Systolic blood 164 mm[Hg] 164 mm[Hg] [facility] ([facility] Heart rate 85 /min 85 /min [facility] ([facility] Respiratory rate 14 /min 14 /min [facility] ( [facility] Diastolic blood 97 mm[Hg] 97 mm[Hg] [facility] (S t pressure [facility]) Systolic blood 164 mm[Hg] 164 mm[Hg] [facility] ([facility] Heart rate 85 /min 85 /min [facility] ([facility] Respiratory rate 14 /min 14 /min [facility] ( [facility] Diastolic blood 97 mm[Hg] 97 mm[Hg] [facility] (S t pressure [facility]) Systolic blood 164 mm[Hg] 164 mm[Hg] [facility] ([facility] Heart rate 85 /min 85 /min [facility] ([facility] Respiratory rate 14 /min 14 /min [facility] ( [facility] Diastolic blood 97 mm[Hg] 97 mm[Hg] [facility] (S t pressure [facility]) Systolic blood 164 mm[Hg] 164 mm[Hg] [facility] ([facility] Heart rate 85 /min 85 /min [facility] ([facility] Respiratory rate 14 /min 14 /min [facility] ( [facility] Diastolic blood 97 mm[Hg] 97 mm[Hg] [facility] (S t [facility]) Systolic blood 164 mm[Hg] 164 mm[Hg] [facility] ([facility] Heart rate 85 /min 85 /min [facility] ([facility] Respiratory rate 14 /min 14 /min [facility] ( [facility] , ) Diastolic blood 97 mm[Hg] 97 mm[Hg] [facility] (S t pressure [facility]) Systolic blood 164 mm[Hg] 164 mm[Hg] [facility] ([facility] Heart rate 85 /min 85 /min [facility] ([facility] Respiratory rate 14 /min 14 /min [facility] ( [facility] Diastolic blood 97 mm[Hg] 97 mm[Hg] [facility] (S t [facility]) Systolic blood 164 mm[Hg] 164 mm[Hg] [facility] ([facility] Heart rate 86 /min 86 /min [facility] ([facility] , ) Inhaled oxygen 97 % 97 % [facility] ([facility], ) Diastolic blood 91 mm[Hg] 91 mm[Hg] [facility] (S t [facility]) Systolic blood 136 mm[Hg] 136 mm[Hg] [facility] ([facility]) Heart rate 86 /min 86 /min [facility] ([facility] , ) Inhaled oxygen 97 % 97 % [facility] ([facility], ) Diastolic blood 91 mm[Hg] 91 mm[Hg] [facility] (S t pressure [facility]) Systolic blood 136 mm[Hg] 136 mm[Hg] [facility] ([facility] Heart rate 86 /min 86 /min [facility] ([facility] , ) Inhaled oxygen 97 % 97 % [facility] (St [facility]) Diastolic blood 91 mm[Hg] 91 mm[Hg] [facility] (S t pressure [facility] , ) Systolic blood 136 mm[Hg] 136 mm[Hg] [facility] (St pressure [facility] , ) Heart rate 86 /min 86 /min [facility] ([facility] , ) Inhaled oxygen 97 % 97 % [facility] ([facility]) Diastolic blood 91 mm[Hg] 91 mm[Hg] [facility] (S t pressure [facility]) Systolic blood 136 mm[Hg] 136 mm[Hg] [facility] (St pressure [facility] , ) Heart rate 86 /min 86 /min [facility] ([facility] , ) Inhaled oxygen 97 % 97 % [facility] ([facility]) Diastolic blood 91 mm[Hg] 91 mm[Hg] [facility] (S t pressure [facility]) Systolic blood 136 mm[Hg] 136 mm[Hg] [facility] (St pressure [facility] , ) Heart rate 86 /min 86 /min [facility] ([facility] , ) Inhaled oxygen 97 % 97 % [facility] ([facility]) Diastolic blood 91 mm[Hg] 91 mm[Hg] [facility] (S t pressure [facility]) Systolic blood 136 mm[Hg] 136 mm[Hg] [facility] (St pressure [facility] , ) Heart rate 86 /min 86 /min [facility] ([facility] , ) Inhaled oxygen 97 % 97 % [facility] ([facility]) Diastolic blood 91 mm[Hg] 91 mm[Hg] [facility] (S t pressure [facility] , ) Systolic blood 136 mm[Hg] 136 mm[Hg] [facility] (St pressure [facility] , ) Heart rate 86 /min 86 /min [facility] ([facility] , ) Inhaled oxygen 97 % 97 % [facility] ([facility], ) Diastolic blood 91 mm[Hg] 91 mm[Hg] [facility] (S t pressure [facility] , ) Systolic blood 136 mm[Hg] 136 mm[Hg] [facility] ([facility] , ) Heart rate 86 /min 86 /min [facility] ([facility] , ) Inhaled oxygen 97 % 97 % [facility] (St [facility], [facility]) Diastolic blood 91 mm[Hg] 91 mm[Hg] [facility] (S t pressure [facility]) Systolic blood 136 mm[Hg] 136 mm[Hg] [facility] ([facility]) Heart rate 86 /min 86 /min [facility] ([facility] , ) Inhaled oxygen 97 % 97 % [facility] (St concentration [facility]) Diastolic blood 91 mm[Hg] 91 mm[Hg] [facility] (S t pressure [facility]) Systolic blood 136 mm[Hg] 136 mm[Hg] [facility] ([facility] , ) Heart rate 86 /min 86 /min [facility] ([facility] , ) Inhaled oxygen 97 % 97 % [facility] ([facility] Diastolic blood 91 mm[Hg] 91 mm[Hg] [facility] (S t pressure [facility]) Systolic blood 136 mm[Hg] 136 mm[Hg] [facility] (St [facility] , ) Heart rate 86 /min 86 /min [facility] ([facility] , ) Inhaled oxygen 97 % 97 % [facility] ([facility] Diastolic blood 91 mm[Hg] 91 mm[Hg] [facility] (S t pressure [facility]) Systolic blood 136 mm[Hg] 136 mm[Hg] [facility] (St [facility] , ) Heart rate 86 /min 86 /min [facility] ([facility] , ) Inhaled oxygen 97 % 97 % MED[facility] (St concentration [facility]) Diastolic blood 91 mm[Hg] 91 mm[Hg] [facility] (S t pressure [facility]) Systolic blood 136 mm[Hg] 136 mm[Hg] [facility] ([facility]) Heart rate 86 /min 86 /min [facility] ([facility] , ) Inhaled oxygen 97 % 97 % [facility] (St concentration [facility]) Diastolic blood 91 mm[Hg] 91 mm[Hg] [facility] (S t pressure [facility]) Systolic blood 136 mm[Hg] 136 mm[Hg] [facility] ([facility] Heart rate 86 /min 86 /min [facility] ([facility]) Inhaled oxygen 97 % 97 % [facility] ([facility], ) Diastolic blood 91 mm[Hg] 91 mm[Hg] [facility] (S t pressure [facility] , ) Systolic blood 136 mm[Hg] 136 mm[Hg] [facility] ([facility]) Heart rate 91 /min 91 /min [facility] ([facility]) Respiratory rate 14 /min 14 /min [facility] ( [facility]) Body temperature 98.4 F 98.4 F [facility] ( [facility]) Inhaled oxygen 99 % 99 % [facility] ([facility]) Body mass index 22.3 kg/m2 22.3 kg/m2 [facility] (S t (BMI) [Ratio] [facility], ) Diastolic blood 85 mm[Hg] 85 mm[Hg] [facility] (S t pressure [facility]) Systolic blood 136 mm[Hg] 136 mm[Hg] [facility] ([facility]) Body weight 138 lb 138 lb [facility] ([facility]) Body height 66 in 66 in [facility] ([facility]) Heart rate 91 /min 91 /min [facility] ([facility]) Respiratory rate 14 /min 14 /min [facility] ( [facility]) Body temperature 98.4 F 98.4 F [facility] ( [facility]) Inhaled oxygen 99 % 99 % [facility] ([facility]) Body mass index 22.3 kg/m2 22.3 kg/m2 [facility] (S t (BMI) [Ratio] [facility], ) Diastolic blood 85 mm[Hg] 85 mm[Hg] [facility] (S t pressure [facility] , ) Systolic blood 136 mm[Hg] 136 mm[Hg] [facility] ([facility] , ) Body weight 138 lb 138 lb [facility] ([facility]) Body height 66 in 66 in [facility] ([facility]) Heart rate 91 /min 91 /min [facility] ([facility]) Respiratory rate 14 /min 14 /min [facility] ( [facility]) Body temperature 98.4 F 98.4 F [facility] ( [facility]) Inhaled oxygen 99 % 99 % [facility] ([facility], ) Body mass index 22.3 kg/m2 22.3 kg/m2 [facility] (S t (BMI) [Ratio] [facility], ) Diastolic blood 85 mm[Hg] 85 mm[Hg] [facility] (S t pressure [facility]) Systolic blood 136 mm[Hg] 136 mm[Hg] [facility] ([facility]) Body weight 138 lb 138 lb [facility] ([facility]) Body height 66 in 66 in [facility] ([facility]) Heart rate 91 /min 91 /min [facility] ([facility]) Respiratory rate 14 /min 14 /min [facility] ( [facility]) Body temperature 98.4 F 98.4 F [facility] ( [facility]) Inhaled oxygen 99 % 99 % [facility] ([facility], ) Body mass index 22.3 kg/m2 22.3 kg/m2 [facility] (S t (BMI) [Ratio] [facility], ) Diastolic blood 85 mm[Hg] 85 mm[Hg] [facility] (S pressure [facility] , ) Systolic blood 136 mm[Hg] 136 mm[Hg] [facility] ([facility] , ) Body weight 138 lb 138 lb [facility] ([facility]) Body height 66 in 66 in [facility] ([facility]) Heart rate 91 /min 91 /min [facility] ([facility]) Respiratory rate 14 /min 14 /min [facility] ( [facility]) Body temperature 98.4 F 98.4 F [facility] ( [facility]) Inhaled oxygen 99 % 99 % [facility] ([facility], ) Body mass index 22.3 kg/m2 22.3 kg/m2 [facility] (S t (BMI) [Ratio] [facility], ) Diastolic blood 85 mm[Hg] 85 mm[Hg] [facility] (S t pressure [facility] , ) Systolic blood 136 mm[Hg] 136 mm[Hg] [facility] ([facility] , ) Body weight 138 lb 138 lb [facility] ([facility]) Body height 66 in 66 in [facility] ([facility]) Heart rate 91 /min 91 /min [facility] ([facility] , ) Respiratory rate 14 /min 14 /min [facility] ( [facility] , ) Body temperature 98.4 F 98.4 F [facility] ( [facility]) Inhaled oxygen 99 % 99 % [facility] ([facility], ) Body mass index 22.3 kg/m2 22.3 kg/m2 [facility] (S t (BMI) [Ratio] [facility], ) Diastolic blood 85 mm[Hg] 85 mm[Hg] [facility] (S t pressure [facility] , ) Systolic blood 136 mm[Hg] 136 mm[Hg] [facility] ([facility] , ) Body weight 138 lb 138 lb [facility] ([facility]) Body height 66 in 66 in [facility] ([facility]) Heart rate 91 /min 91 /min [facility] ([facility] , ) Respiratory rate 14 /min 14 /min [facility] ( [facility] , ) Body temperature 98.4 F 98.4 F [facility] ( [facility] , ) Inhaled oxygen 99 % 99 % [facility] ([facility], ) Body mass index 22.3 kg/m2 22.3 kg/m2 [facility] (S t (BMI) [Ratio] [facility], ) Diastolic blood 85 mm[Hg] 85 mm[Hg] [facility] (S t pressure [facility] , ) Systolic blood 136 mm[Hg] 136 mm[Hg] [facility] ([facility] , ) Body weight 138 lb 138 lb [facility] ([facility]) Body height 66 in 66 in [facility] ([facility]) Heart rate 91 /min 91 /min [facility] ([facility] , ) Respiratory rate 14 /min 14 /min [facility] ( [facility]) Body temperature 98.4 F 98.4 F [facility] ( [facility]) Inhaled oxygen 99 % 99 % [facility] ([facility]) Body mass index 22.3 kg/m2 22.3 kg/m2 [facility] (S t (BMI) [Ratio] [facility], ) Diastolic blood 85 mm[Hg] 85 mm[Hg] [facility] (S t pressure [facility]) Systolic blood 136 mm[Hg] 136 mm[Hg] [facility] ([facility]) Body weight 138 lb 138 lb [facility] ([facility]) Body height 66 in 66 in [facility] ([facility]) Heart rate 91 /min 91 /min [facility] ([facility]) Respiratory rate 14 /min 14 /min [facility] ( [facility]) Body temperature 98.4 F 98.4 F [facility] ( [facility]) Inhaled oxygen 99 % 99 % [facility] ([facility]) Body mass index 22.3 kg/m2 22.3 kg/m2 [facility] (S t (BMI) [Ratio] [facility]) Diastolic blood 85 mm[Hg] 85 mm[Hg] [facility] (S [facility] [place] [place]) Systolic blood 136 mm[Hg] 136 mm[Hg] [facility] ([facility]) Body weight 138 lb 138 lb [facility] ([facility]) Body height 66 in 66 in [facility] ([facility]) Heart rate 91 /min 91 /min [facility] ([facility]) Respiratory rate 14 /min 14 /min [facility] ( [facility]) Body temperature 98.4 F 98.4 F [facility] ( [facility]) Inhaled oxygen 99 % 99 % [facility] ([facility]) Body mass index 22.3 kg/m2 22.3 kg/m2 [facility] (S t (BMI) [Ratio] [facility], ) Diastolic blood 85 mm[Hg] 85 mm[Hg] [facility] (S [facility]) Systolic blood 136 mm[Hg] 136 mm[Hg] [facility] ([facility]) Body weight 138 lb 138 lb [facility] ([facility]) Body height 66 in 66 in [facility] ([facility]) Heart rate 91 /min 91 /min [facility] ([facility]) Respiratory rate 14 /min 14 /min [facility] ( [facility]) Body temperature 98.4 F 98.4 F [facility] ( [facility]) Inhaled oxygen 99 % 99 % [facility] ([facility], ) Body mass index 22.3 kg/m2 22.3 kg/m2 [facility] (S t (BMI) [Ratio] [facility], ) Diastolic blood 85 mm[Hg] 85 mm[Hg] [facility] (S t pressure [facility]) Systolic blood 136 mm[Hg] 136 mm[Hg] [facility] ([facility]) Body weight 138 lb 138 lb [facility] ([facility]) Body height 66 in 66 in [facility] ([facility]) Heart rate 91 /min 91 /min [facility] ([facility]) Respiratory rate 14 /min 14 /min [facility] ( [facility]) Body temperature 98.4 F 98.4 F [facility] ( [facility]) Inhaled oxygen 99 % 99 % [facility] ([facility], ) Body mass index 22.3 kg/m2 22.3 kg/m2 [facility] (S t (BMI) [Ratio] [facility], ) Diastolic blood 85 mm[Hg] 85 mm[Hg] [facility] (S t pressure [facility]) Systolic blood 136 mm[Hg] 136 mm[Hg] [facility] ([facility] , ) Body weight 138 lb 138 lb [facility] ([facility]) Body height 66 in 66 in [facility] ([facility]) Heart rate 91 /min 91 /min [facility] ([facility]) Respiratory rate 14 /min 14 /min [facility] ( [facility]) Body temperature 98.4 F 98.4 F [facility] ( [facility]) Inhaled oxygen 99 % 99 % [facility] ([facility]) Body mass index 22.3 kg/m2 22.3 kg/m2 [facility] (S t (BMI) [Ratio] [facility]) Diastolic blood 85 mm[Hg] 85 mm[Hg] [facility] (S t [facility]) Systolic blood 136 mm[Hg] 136 mm[Hg] [facility] ([facility]) Body weight 138 lb 138 lb [facility] ([facility]) Body height 66 in 66 in [facility] ([facility]) Heart rate 91 /min 91 /min [facility] ([facility]) Respiratory rate 14 /min 14 /min [facility] ( [facility]) Body temperature 98.4 F 98.4 F [facility] ( [facility]) Inhaled oxygen 99 % 99 % [facility] ([facility]) Body mass index 22.3 kg/m2 22.3 kg/m2 [facility] (S t (BMI) [Ratio] [facility]) Diastolic blood 85 mm[Hg] 85 mm[Hg] [facility] (S t [facility]) Systolic blood 136 mm[Hg] 136 mm[Hg] [facility] ([facility]) Body weight 138 lb 138 lb [facility] ([facility]) Body height 66 in 66 in [facility] ([facility]) Heart rate 91 /min 91 /min [facility] ([facility]) Respiratory rate 14 /min 14 /min [facility] ( [facility]) Body temperature 98.4 F 98.4 F [facility] ( [facility]) Inhaled oxygen 99 % 99 % [facility] ([facility]) Body mass index 22.3 kg/m2 22.3 kg/m2 [facility] (S t (BMI) [Ratio] [facility]) Diastolic blood 85 mm[Hg] 85 mm[Hg] [facility] (S t [facility]) Systolic blood 136 mm[Hg] 136 mm[Hg] [facility] ([facility]) Body weight 138 lb 138 lb [facility] ([facility]) Body height 66 in 66 in [facility] ([facility]) Heart rate 79 /min 79 /min [facility] ([facility]) Respiratory rate 14 /min 14 /min [facility] ( [facility]) Body temperature 98 F 98 F [facility] ( [facility]) Inhaled oxygen 100 % 100 % [facility] ([facility], ) Body mass index 22.3 kg/m2 22.3 kg/m2 [facility] (S t (BMI) [Ratio] [facility], ) Diastolic blood 68 mm[Hg] 68 mm[Hg] [facility] (S t [facility]) Systolic blood 129 mm[Hg] 129 mm[Hg] [facility] ([facility]) Body weight 138 lb 138 lb [facility] ([facility]) Body height 66 in 66 in [facility] ([facility]) Heart rate 79 /min 79 /min [facility] ([facility]) Respiratory rate 14 /min 14 /min [facility] ( [facility]) Body temperature 98 F 98 F [facility] ( [facility]) Inhaled oxygen 100 % 100 % [facility] ([facility], ) Body mass index 22.3 kg/m2 22.3 kg/m2 [facility] (S t (BMI) [Ratio] [facility], ) Diastolic blood 68 mm[Hg] 68 mm[Hg] [facility] (S t pressure [facility]) Systolic blood 129 mm[Hg] 129 mm[Hg] [facility] ([facility]) Body weight 138 lb 138 lb [facility] ([facility]) Body height 66 in 66 in [facility] ([facility]) Heart rate 79 /min 79 /min [facility] ([facility]) Respiratory rate 14 /min 14 /min [facility] ( [facility]) Body temperature 98 F 98 F [facility] ( [facility] [place] Inhaled oxygen 100 % 100 % MEDGEN ([facility]) Body mass index 22.3 kg/m2 22.3 kg/m2 MEDGEN (S t (BMI) [Ratio] [facility], ) Diastolic blood 68 mm[Hg] 68 mm[Hg] [facility] ([facility]) Systolic blood 129 mm[Hg] 129 mm[Hg] MEDGEN ([facility]) Body weight 138 lb 138 lb MEDGEN ([facility]) Body height 66 in 66 in MEDGEN ([facility]) Heart rate 79 /min 79 /min MEDGEN ([facility]) Respiratory rate 14 /min 14 /min MEDGEN ( [facility]) Body temperature 98 F 98 F MEDGEN ( [facility]) Inhaled oxygen 100 % 100 % MEDGEN ([facility], ) Body mass index 22.3 kg/m2 22.3 kg/m2 MEDGEN (S t (BMI) [Ratio] [facility], ) Diastolic blood 68 mm[Hg] 68 mm[Hg] MEDGEN ([facility]) Systolic blood 129 mm[Hg] 129 mm[Hg] MEDGEN ([facility]) Body weight 138 lb 138 lb MEDGEN ([facility]) Body height 66 in 66 in MEDGEN ([facility]) Heart rate 79 /min 79 /min MEDGEN ([facility]) Respiratory rate 14 /min 14 /min MEDGEN ( [facility]) Body temperature 98 F 98 F MEDGEN ( [facility]) Inhaled oxygen 100 % 100 % MEDGEN ([facility], ) Body mass index 22.3 kg/m2 22.3 kg/m2 MEDGEN (S t (BMI) [Ratio] [facility], ) Diastolic blood 68 mm[Hg] 68 mm[Hg] MEDGEN ([facility]) Systolic blood 129 mm[Hg] 129 mm[Hg] MEDGEN ([facility]) Body weight 138 lb 138 lb MEDGEN ([facility]) Body height 66 in 66 in MEDGEN ([facility]) Heart rate 79 /min 79 /min MEDGEN ([facility] [place]) Respiratory rate 14 /min 14 /min MEDGEN ( [facility]) Body temperature 98 F 98 F MEDGEN ( [facility] [place]) Inhaled oxygen 100 % 100 % MEDGEN ([facility], ) Body mass index 22.3 kg/m2 22.3 kg/m2 MEDGEN (S t (BMI) [Ratio] [facility], ) Diastolic blood 68 mm[Hg] 68 mm[Hg] MEDGEN ([facility]) Systolic blood 129 mm[Hg] 129 mm[Hg] MEDGEN ([facility]) Body weight 138 lb 138 lb MEDGEN ([facility]) Body height 66 in 66 in MEDGEN ([facility]) Heart rate 79 /min 79 /min MEDGEN ([facility]) Respiratory rate 14 /min 14 /min MEDGEN ( [facility]) Body temperature 98 F 98 F MEDGEN ( [facility] [place]) Inhaled oxygen 100 % 100 % MEDGEN ([facility]) Body mass index 22.3 kg/m2 22.3 kg/m2 MEDGEN (S t (BMI) [Ratio] [facility], ) Diastolic blood 68 mm[Hg] 68 mm[Hg] MEDGEN ([facility]) Systolic blood 129 mm[Hg] 129 mm[Hg] MEDGEN ([facility]) Body weight 138 lb 138 lb MEDGEN ([facility] [place]) Body height 66 in 66 in MEDGEN ([facility]) Heart rate 79 /min 79 /min MEDGEN ([facility]) Respiratory rate 14 /min 14 /min MEDGEN ( [facility]) Body temperature 98 F 98 F MEDGEN ( [facility]) Inhaled oxygen 100 % 100 % MEDGEN ([facility], ) Body mass index 22.3 kg/m2 22.3 kg/m2 MEDGEN (S t (BMI) [Ratio] [facility], ) Diastolic blood 68 mm[Hg] 68 mm[Hg] MEDGEN ([facility]) Systolic blood 129 mm[Hg] 129 mm[Hg] MEDGEN ([facility]) Body weight 138 lb 138 lb MEDGEN ([facility]) Body height 66 in 66 in MEDGEN ([facility] [place]) Heart rate 79 /min 79 /min MEDGEN ([facility] [place]) Respiratory rate 14 /min 14 /min MEDGEN ( [facility] [place]) Body temperature 98 F 98 F MEDGEN ( [facility] [place]) Inhaled oxygen 100 % 100 % MEDGEN ([facility], ) Body mass index 22.3 kg/m2 22.3 kg/m2 MEDGEN (S t (BMI) [Ratio] [facility], ) Diastolic blood 68 mm[Hg] 68 mm[Hg] MEDGEN ([facility]) Systolic blood 129 mm[Hg] 129 mm[Hg] MEDGEN ([facility]) Body weight 138 lb 138 lb MEDGEN ([facility]) Body height 66 in 66 in MEDGEN ([facility]) Heart rate 79 /min 79 /min MEDGEN ([facility]) Respiratory rate 14 /min 14 /min MEDGEN ( [facility]) Body temperature 98 F 98 F MEDGEN ( [facility]) Inhaled oxygen 100 % 100 % MEDGEN ([facility], ) Body mass index 22.3 kg/m2 22.3 kg/m2 MEDGEN (S t (BMI) [Ratio] [facility], ) Diastolic blood 68 mm[Hg] 68 mm[Hg] MEDGEN ([facility]) Systolic blood 129 mm[Hg] 129 mm[Hg] MEDGEN ([facility]) Body weight 138 lb 138 lb MEDGEN ([facility]) Body height 66 in 66 in MEDGEN ([facility] [place]) Heart rate 79 /min 79 /min MEDGEN ([facility]) Respiratory rate 14 /min 14 /min MEDGEN ( [facility] [place]) Body temperature 98 F 98 F MEDGEN ( [facility] [place]) Inhaled oxygen 100 % 100 % MEDGEN ([facility], ) Body mass index 22.3 kg/m2 22.3 kg/m2 MEDGEN (S t (BMI) [Ratio] [facility], ) Diastolic blood 68 mm[Hg] 68 mm[Hg] MEDGEN ([facility]) Systolic blood 129 mm[Hg] 129 mm[Hg] MEDGEN ([facility]) Body weight 138 lb 138 lb MEDGEN ([facility]) Body height 66 in 66 in MEDGEN ([facility]) Heart rate 79 /min 79 /min MEDGEN ([facility]) Respiratory rate 14 /min 14 /min MEDGEN ( [facility]) Body temperature 98 F 98 F MEDGEN ( [facility] [place]) Inhaled oxygen 100 % 100 % MEDGEN ([facility], ) Body mass index 22.3 kg/m2 22.3 kg/m2 MEDGEN (S t (BMI) [Ratio] [facility], ) Diastolic blood 68 mm[Hg] 68 mm[Hg] MEDGEN ([facility]) Systolic blood 129 mm[Hg] 129 mm[Hg] MEDGEN ([facility]) Body weight 138 lb 138 lb MEDGEN ([facility] [place]) Body height 66 in 66 in MEDGEN ([facility]) Heart rate 79 /min 79 /min MEDGEN ([facility] [place]) Respiratory rate 14 /min 14 /min MEDGEN ( [facility] [place]) Body temperature 98 F 98 F MEDGEN ( [facility]) Inhaled oxygen 100 % 100 % MEDGEN ([facility], ) Body mass index 22.3 kg/m2 22.3 kg/m2 MEDGEN (S t (BMI) [Ratio] [facility], ) Diastolic blood 68 mm[Hg] 68 mm[Hg] MEDGEN ([facility]) Systolic blood 129 mm[Hg] 129 mm[Hg] MEDGEN ([facility]) Body weight 138 lb 138 lb MEDGEN ([facility]) Body height 66 in 66 in MEDGEN ([facility] [place]) Heart rate 79 /min 79 /min MEDGEN ([facility]) Respiratory rate 14 /min 14 /min MEDGEN ( [facility]) Body temperature 98 F 98 F MEDGEN ( [facility] [place]) Inhaled oxygen 100 % 100 % MEDGEN ([facility], ) Body mass index 22.3 kg/m2 22.3 kg/m2 MEDGEN (S t (BMI) [Ratio] [facility], ) Diastolic blood 68 mm[Hg] 68 mm[Hg] MEDGEN ([facility]) Systolic blood 129 mm[Hg] 129 mm[Hg] MEDGEN ([facility]) Body weight 138 lb 138 lb MEDGEN ([facility]) Body height 66 in 66 in MEDGEN ([facility]) Heart rate 79 /min 79 /min MEDGEN ([facility]) Respiratory rate 14 /min 14 /min MEDGEN ( [facility] [place]) Body temperature 98 F 98 F MEDGEN ( [facility] [place]) Inhaled oxygen 100 % 100 % MEDGEN ([facility], ) Body mass index 22.3 kg/m2 22.3 kg/m2 MEDGEN (S t (BMI) [Ratio] [facility], ) Diastolic blood 68 mm[Hg] 68 mm[Hg] MEDGEN ([facility]) Systolic blood 129 mm[Hg] 129 mm[Hg] MEDGEN ([facility]) Body weight 138 lb 138 lb MEDGEN ([facility]) Body height 66 in 66 in MEDGEN ([facility]) Heart rate 79 /min 79 /min MEDGEN ([facility] [place]) Respiratory rate 16 /min 16 /min MEDGEN ( [facility]) Body temperature 97.9 F 97.9 F MEDGEN ( [facility]) Inhaled oxygen 100 % 100 % MEDGEN ([facility], ) Body mass index 22.3 kg/m2 22.3 kg/m2 MEDGEN (S t (BMI) [Ratio] [facility], ) Diastolic blood 79 mm[Hg] 79 mm[Hg] MEDGEN ([facility]) Systolic blood 114 mm[Hg] 114 mm[Hg] MEDGEN ([facility]) Body weight 138 lb 138 lb MEDGEN ([facility] [place]) Body height 66 in 66 in MEDGEN ([facility] [place]) Heart rate 79 /min 79 /min MEDGEN ([facility] [place]) Respiratory rate 16 /min 16 /min MEDGEN ( [facility] [place]) Body temperature 97.9 F 97.9 F MEDGEN ( [facility] [place]) Inhaled oxygen 100 % 100 % MEDGEN ([facility]) Body mass index 22.3 kg/m2 22.3 kg/m2 MEDGEN (S t (BMI) [Ratio] [facility], ) Diastolic blood 79 mm[Hg] 79 mm[Hg] MEDGEN ([facility]) Systolic blood 114 mm[Hg] 114 mm[Hg] MEDGEN ([facility]) Body weight 138 lb 138 lb MEDGEN ([facility]) Body height 66 in 66 in MEDGEN ([facility]) Heart rate 79 /min 79 /min MEDGEN ([facility]) Respiratory rate 16 /min 16 /min MEDGEN ( [facility]) Body temperature 97.9 F 97.9 F MEDGEN ( [facility]) Inhaled oxygen 100 % 100 % MEDGEN ([facility], ) Body mass index 22.3 kg/m2 22.3 kg/m2 MEDGEN (S t (BMI) [Ratio] [facility], ) Diastolic blood 79 mm[Hg] 79 mm[Hg] MEDGEN ([facility]) Systolic blood 114 mm[Hg] 114 mm[Hg] MEDGEN ([facility]) Body weight 138 lb 138 lb MEDGEN ([facility]) Body height 66 in 66 in MEDGEN ([facility] [place]) Heart rate 79 /min 79 /min MEDGEN ([facility]) Respiratory rate 16 /min 16 /min MEDGEN ( [facility]) Body temperature 97.9 F 97.9 F MEDGEN ( [facility]) Inhaled oxygen 100 % 100 % MEDGEN ([facility]) Body mass index 22.3 kg/m2 22.3 kg/m2 MEDGEN (S t (BMI) [Ratio] [facility]) Diastolic blood 79 mm[Hg] 79 mm[Hg] MEDGEN ([facility]) Systolic blood 114 mm[Hg] 114 mm[Hg] MEDGEN ([facility]) Body weight 138 lb 138 lb MEDGEN ([facility]) Body height 66 in 66 in MEDGEN ([facility]) Heart rate 79 /min 79 /min MEDGEN ([facility]) Respiratory rate 16 /min 16 /min MEDGEN ( [facility]) Body temperature 97.9 F 97.9 F MEDGEN ( [facility] [place]) Inhaled oxygen 100 % 100 % MEDGEN ([facility]) Body mass index 22.3 kg/m2 22.3 kg/m2 MEDGEN (S t (BMI) [Ratio] [facility]) Diastolic blood 79 mm[Hg] 79 mm[Hg] MEDGEN ([facility]) Systolic blood 114 mm[Hg] 114 mm[Hg] MEDGEN ([facility]) Body weight 138 lb 138 lb MEDGEN ([facility]) Body height 66 in 66 in MEDGEN ([facility] [place]) Heart rate 79 /min 79 /min MEDGEN ([facility]) Respiratory rate 16 /min 16 /min MEDGEN ( [facility]) Body temperature 97.9 F 97.9 F MEDGEN ( [facility]) Inhaled oxygen 100 % 100 % MEDGEN ([facility]) Body mass index 22.3 kg/m2 22.3 kg/m2 MEDGEN (S t (BMI) [Ratio] [facility], ) Diastolic blood 79 mm[Hg] 79 mm[Hg] MEDGEN ([facility]) Systolic blood 114 mm[Hg] 114 mm[Hg] MEDGEN ([facility]) Body weight 138 lb 138 lb MEDGEN ([facility]) Body height 66 in 66 in MEDGEN ([facility]) Heart rate 79 /min 79 /min MEDGEN ([facility]) Respiratory rate 16 /min 16 /min MEDGEN ( [facility]) Body temperature 97.9 F 97.9 F MEDGEN ( [facility]) Inhaled oxygen 100 % 100 % MEDGEN ([facility], ) Body mass index 22.3 kg/m2 22.3 kg/m2 MEDGEN (S t (BMI) [Ratio] [facility], ) Diastolic blood 79 mm[Hg] 79 mm[Hg] MEDGEN ([facility]) Systolic blood 114 mm[Hg] 114 mm[Hg] MEDGEN ([facility]) Body weight 138 lb 138 lb MEDGEN ([facility]) Body height 66 in 66 in MEDGEN ([facility]) Heart rate 79 /min 79 /min MEDGEN ([facility] [place]) Respiratory rate 16 /min 16 /min MEDGEN ( [facility]) Body temperature 97.9 F 97.9 F MEDGEN ( [facility] [place]) Inhaled oxygen 100 % 100 % MEDGEN ([facility], ) Body mass index 22.3 kg/m2 22.3 kg/m2 MEDGEN (S t (BMI) [Ratio] [facility], ) Diastolic blood 79 mm[Hg] 79 mm[Hg] MEDGEN ([facility]) Systolic blood 114 mm[Hg] 114 mm[Hg] MEDGEN ([facility]) Body weight 138 lb 138 lb MEDGEN ([facility] [place]) Body height 66 in 66 in MEDGEN ([facility] [place]) Heart rate 79 /min 79 /min MEDGEN ([facility] [place]) Respiratory rate 16 /min 16 /min MEDGEN ( [facility] [place]) Body temperature 97.9 F 97.9 F MEDGEN ( [facility] [place]) Inhaled oxygen 100 % 100 % MEDGEN ([facility], ) Body mass index 22.3 kg/m2 22.3 kg/m2 MEDGEN (S t (BMI) [Ratio] [facility]) Diastolic blood 79 mm[Hg] 79 mm[Hg] MEDGEN (S t [facility]) Systolic blood 114 mm[Hg] 114 mm[Hg] MEDGEN ([facility]) Body weight 138 lb 138 lb MEDGEN ([facility]) Body height 66 in 66 in MEDGEN ([facility]) Heart rate 79 /min 79 /min MEDGEN ([facility] [place]) Respiratory rate 16 /min 16 /min MEDGEN ( [facility]) Body temperature 97.9 F 97.9 F MEDGEN ( [facility]) Inhaled oxygen 100 % 100 % MEDGEN ([facility], ) Body mass index 22.3 kg/m2 22.3 kg/m2 MEDGEN (S t (BMI) [Ratio] [facility]) Diastolic blood 79 mm[Hg] 79 mm[Hg] MEDGEN ([facility]) Systolic blood 114 mm[Hg] 114 mm[Hg] MEDGEN ([facility]) Body weight 138 lb 138 lb MEDGEN ([facility]) Body height 66 in 66 in MEDGEN ([facility]) Heart rate 79 /min 79 /min MEDGEN ([facility] [place]) Respiratory rate 16 /min 16 /min MEDGEN ( [facility] [place]) Body temperature 97.9 F 97.9 F MEDGEN ( [facility] [place]) Inhaled oxygen 100 % 100 % MEDGEN ([facility]) Body mass index 22.3 kg/m2 22.3 kg/m2 MEDGEN (S t (BMI) [Ratio] [facility]) Diastolic blood 79 mm[Hg] 79 mm[Hg] MEDGEN ([facility]) Systolic blood 114 mm[Hg] 114 mm[Hg] MEDGEN ([facility]) Body weight 138 lb 138 lb MEDGEN ([facility]) Body height 66 in 66 in MEDGEN ([facility]) Heart rate 79 /min 79 /min MEDGEN ([facility] [place]) Respiratory rate 16 /min 16 /min MEDGEN ( [facility]) Body temperature 97.9 F 97.9 F MEDGEN ( [facility]) Inhaled oxygen 100 % 100 % MEDGEN ([facility], ) Body mass index 22.3 kg/m2 22.3 kg/m2 MEDGEN (S t (BMI) [Ratio] [facility], ) Diastolic blood 79 mm[Hg] 79 mm[Hg] MEDGEN ([facility]) Systolic blood 114 mm[Hg] 114 mm[Hg] MEDGEN ([facility]) Body weight 138 lb 138 lb MEDGEN ([facility]) Body height 66 in 66 in MEDGEN ([facility]) Heart rate 79 /min 79 /min MEDGEN ([facility]) Respiratory rate 16 /min 16 /min MEDGEN ( [facility]) Body temperature 97.9 F 97.9 F MEDGEN ( [facility]) Inhaled oxygen 100 % 100 % MEDGEN ([facility], ) Body mass index 22.3 kg/m2 22.3 kg/m2 MEDGEN (S t (BMI) [Ratio] [facility], ) Diastolic blood 79 mm[Hg] 79 mm[Hg] MEDGEN ([facility]) Systolic blood 114 mm[Hg] 114 mm[Hg] MEDGEN ([facility]) Body weight 138 lb 138 lb MEDGEN ([facility]) Body height 66 in 66 in MEDGEN ([facility]) Heart rate 79 /min 79 /min MEDGEN ([facility] [place]) Respiratory rate 16 /min 16 /min MEDGEN ( [facility] [place]) Body temperature 97.9 F 97.9 F MEDGEN ( [facility]) Inhaled oxygen 100 % 100 % MEDGEN ([facility], ) Body mass index 22.3 kg/m2 22.3 kg/m2 MEDGEN (S t (BMI) [Ratio] [facility], ) Diastolic blood 79 mm[Hg] 79 mm[Hg] MEDGEN ([facility]) Systolic blood 114 mm[Hg] 114 mm[Hg] MEDGEN ([facility]) Body weight 138 lb 138 lb MEDGEN ([facility]) Body height 66 in 66 in MEDGEN ([facility]) Heart rate 79 /min 79 /min MEDGEN ([facility] [place]) Respiratory rate 16 /min 16 /min MEDGEN ( [facility]) Body temperature 97.9 F 97.9 F MEDGEN ( [facility]) Inhaled oxygen 100 % 100 % MEDGEN ([facility]) Body mass index 22.3 kg/m2 22.3 kg/m2 MEDGEN (S t (BMI) [Ratio] [facility], ) Diastolic blood 79 mm[Hg] 79 mm[Hg] MEDGEN ([facility] t [facility]) Systolic blood 114 mm[Hg] 114 mm[Hg] MEDGEN ([facility]) Body weight 138 lb 138 lb MEDGEN ([facility]) Body height 66 in 66 in MEDGEN ([facility]) Heart rate 80 /min 80 /min MEDGEN ([facility]) Body temperature 98.2 F 98.2 F MEDGEN ( [facility]) Inhaled oxygen 100 % 100 % MEDGEN ([facility]) Body mass index 22.9 kg/m2 22.9 kg/m2 MEDGEN (S t (BMI) [Ratio] [facility]) Diastolic blood 74 mm[Hg] 74 mm[Hg] MEDGEN ([facility]) Systolic blood 110 mm[Hg] 110 mm[Hg] MEDGEN ([facility]) Body weight 142 lb 142 lb MEDGEN ([facility]) Body height 66 in 66 in MEDGEN ([facility]) Heart rate 80 /min 80 /min MEDGEN ([facility]) Body temperature 98.2 F 98.2 F MEDGEN ( [facility]) Inhaled oxygen 100 % 100 % MEDGEN ([facility], ) Body mass index 22.9 kg/m2 22.9 kg/m2 MEDGEN (S t (BMI) [Ratio] [facility], ) Diastolic blood 74 mm[Hg] 74 mm[Hg] MEDGEN ([facility]) Systolic blood 110 mm[Hg] 110 mm[Hg] MEDGEN ([facility]) Body weight 142 lb 142 lb MEDGEN ([facility]) Body height 66 in 66 in MEDGEN ([facility]) Heart rate 80 /min 80 /min MEDGEN ([facility]) Body temperature 98.2 F 98.2 F MEDGEN ( [facility]) Inhaled oxygen 100 % 100 % MEDGEN ([facility]) Body mass index 22.9 kg/m2 22.9 kg/m2 MEDGEN (S t (BMI) [Ratio] [facility]) Diastolic blood 74 mm[Hg] 74 mm[Hg] MEDGEN ([facility]) Systolic blood 110 mm[Hg] 110 mm[Hg] MEDGEN ([facility]) Body weight 142 lb 142 lb MEDGEN ([facility]) Body height 66 in 66 in MEDGEN ([facility]) Heart rate 80 /min 80 /min MEDGEN ([facility]) Body temperature 98.2 F 98.2 F MEDGEN ( [facility]) Inhaled oxygen 100 % 100 % MEDGEN ([facility], ) Body mass index 22.9 kg/m2 22.9 kg/m2 MEDGEN ([facility] [place], ) Diastolic blood 74 mm[Hg] 74 mm[Hg] MEDGEN (S [facility]) Systolic blood 110 mm[Hg] 110 mm[Hg] MEDGEN ([facility]) Body weight 142 lb 142 lb MEDGEN ([facility]) Body height 66 in 66 in MEDGEN ([facility]) Heart rate 80 /min 80 /min MEDGEN ([facility]) Body temperature 98.2 F 98.2 F MEDGEN ( [facility]) Inhaled oxygen 100 % 100 % MEDGEN ([facility], ) Body mass index 22.9 kg/m2 22.9 kg/m2 MEDGEN (S t (BMI) [Ratio] [facility] [place], ) Diastolic blood 74 mm[Hg] 74 mm[Hg] MEDGEN (S t [facility]) Systolic blood 110 mm[Hg] 110 mm[Hg] MEDGEN ([facility]) Body weight 142 lb 142 lb MEDGEN ([facility]) Body height 66 in 66 in MEDGEN ([facility]) Heart rate 80 /min 80 /min MEDGEN ([facility]) Body temperature 98.2 F 98.2 F MEDGEN ( [facility]) Inhaled oxygen 100 % 100 % MEDGEN ([facility]) Body mass index 22.9 kg/m2 22.9 kg/m2 MEDGEN (S t (BMI) [Ratio] [facility] [place], ) Diastolic blood 74 mm[Hg] 74 mm[Hg] MEDGEN (S [facility]) Systolic blood 110 mm[Hg] 110 mm[Hg] MEDGEN ([facility]) Body weight 142 lb 142 lb MEDGEN ([facility]) Body height 66 in 66 in MEDGEN ([facility]) Heart rate 80 /min 80 /min MEDGEN ([facility]) Body temperature 98.2 F 98.2 F MEDGEN ( [facility]) Inhaled oxygen 100 % 100 % MEDGEN ([facility], ) Body mass index 22.9 kg/m2 22.9 kg/m2 MEDGEN (S t (BMI) [Ratio] [facility] [place], ) Diastolic blood 74 mm[Hg] 74 mm[Hg] MEDGEN (S [facility]) Systolic blood 110 mm[Hg] 110 mm[Hg] MEDGEN ([facility]) Body weight 142 lb 142 lb MEDGEN ([facility]) Body height 66 in 66 in MEDGEN ([facility]) Heart rate 80 /min 80 /min MEDGEN ([facility]) Body temperature 98.2 F 98.2 F MEDGEN ( [facility]) Inhaled oxygen 100 % 100 % MEDGEN ([facility], ) Body mass index 22.9 kg/m2 22.9 kg/m2 MEDGEN (S t (BMI) [Ratio] [facility] [place], ) Diastolic blood 74 mm[Hg] 74 mm[Hg] MEDGEN (S [facility] [place] [place]) Systolic blood 110 mm[Hg] 110 mm[Hg] MEDGEN ([facility]) Body weight 142 lb 142 lb MEDGEN ([facility]) Body height 66 in 66 in MEDGEN ([facility]) Heart rate 80 /min 80 /min MEDGEN ([facility]) Body temperature 98.2 F 98.2 F MEDGEN ( [facility]) Inhaled oxygen 100 % 100 % MEDGEN ([facility]) Body mass index 22.9 kg/m2 22.9 kg/m2 MEDGEN (S t (BMI) [Ratio] [facility] [place], ) Diastolic blood 74 mm[Hg] 74 mm[Hg] MEDGEN (S [facility]) Systolic blood 110 mm[Hg] 110 mm[Hg] MEDGEN ([facility]) Body weight 142 lb 142 lb MEDGEN ([facility]) Body height 66 in 66 in MEDGEN ([facility]) Heart rate 80 /min 80 /min MEDGEN ([facility]) Body temperature 98.2 F 98.2 F MEDGEN ( [facility]) Inhaled oxygen 100 % 100 % MEDGEN ([facility], ) Body mass index 22.9 kg/m2 22.9 kg/m2 MEDGEN (S t (BMI) [Ratio] [facility] [place], ) Diastolic blood 74 mm[Hg] 74 mm[Hg] MEDGEN (S [facility]) Systolic blood 110 mm[Hg] 110 mm[Hg] MEDGEN ([facility]) Body weight 142 lb 142 lb MEDGEN ([facility]) Body height 66 in 66 in MEDGEN ([facility]) Heart rate 80 /min 80 /min MEDGEN ([facility]) Body temperature 98.2 F 98.2 F MEDGEN ( [facility]) Inhaled oxygen 100 % 100 % MEDGEN ([facility], ) Body mass index 22.9 kg/m2 22.9 kg/m2 MEDGEN (S t (BMI) [Ratio] [facility] [place], ) Diastolic blood 74 mm[Hg] 74 mm[Hg] MEDGEN (S [facility]) Systolic blood 110 mm[Hg] 110 mm[Hg] MEDGEN ([facility]) Body weight 142 lb 142 lb MEDGEN ([facility]) Body height 66 in 66 in MEDGEN ([facility]) Heart rate 80 /min 80 /min MEDGEN ([facility]) Body temperature 98.2 F 98.2 F MEDGEN ( [facility]) Inhaled oxygen 100 % 100 % MEDGEN ([facility]) Body mass index 22.9 kg/m2 22.9 kg/m2 MEDGEN (S t (BMI) [Ratio] [facility] [place], ) Diastolic blood 74 mm[Hg] 74 mm[Hg] MEDGEN (S [facility]) Systolic blood 110 mm[Hg] 110 mm[Hg] MEDGEN ([facility]) Body weight 142 lb 142 lb MEDGEN ([facility]) Body height 66 in 66 in MEDGEN ([facility]) Heart rate 80 /min 80 /min MEDGEN ([facility]) Body temperature 98.2 F 98.2 F MEDGEN ( [facility]) Inhaled oxygen 100 % 100 % MEDGEN ([facility]) Body mass index 22.9 kg/m2 22.9 kg/m2 MEDGEN (S t (BMI) [Ratio] [facility] [place], ) Diastolic blood 74 mm[Hg] 74 mm[Hg] MEDGEN (S [facility]) Systolic blood 110 mm[Hg] 110 mm[Hg] MEDGEN ([facility]) Body weight 142 lb 142 lb MEDGEN ([facility]) Body height 66 in 66 in MEDGEN ([facility]) Heart rate 80 /min 80 /min MEDGEN ([facility]) Body temperature 98.2 F 98.2 F MEDGEN ( [facility]) Inhaled oxygen 100 % 100 % MEDGEN ([facility], ) Body mass index 22.9 kg/m2 22.9 kg/m2 MEDGEN (S t (BMI) [Ratio] [facility] [place], ) Diastolic blood 74 mm[Hg] 74 mm[Hg] MEDGEN (S [facility] [place] [place]) Systolic blood 110 mm[Hg] 110 mm[Hg] MEDGEN ([facility]) Body weight 142 lb 142 lb MEDGEN ([facility]) Body height 66 in 66 in MEDGEN ([facility]) Heart rate 80 /min 80 /min MEDGEN ([facility]) Body temperature 98.2 F 98.2 F MEDGEN ( [facility]) Inhaled oxygen 100 % 100 % MEDGEN ([facility], ) Body mass index 22.9 kg/m2 22.9 kg/m2 MEDGEN (S t (BMI) [Ratio] [facility] [place], ) Diastolic blood 74 mm[Hg] 74 mm[Hg] MEDGEN (S t [facility]) Systolic blood 110 mm[Hg] 110 mm[Hg] MEDGEN ([facility]) Body weight 142 lb 142 lb MEDGEN ([facility]) Body height 66 in 66 in MEDGEN ([facility]) Heart rate 87 /min 87 /min MEDGEN ([facility]) Respiratory rate 16 /min 16 /min MEDGEN ( [facility]) Body temperature 97.6 F 97.6 F MEDGEN ( [facility]) Inhaled oxygen 100 % 100 % MEDGEN ([facility], ) Body mass index 22.9 kg/m2 22.9 kg/m2 MEDGEN (S t (BMI) [Ratio] [facility] [place], ) Diastolic blood 87 mm[Hg] 87 mm[Hg] MEDGEN (S t pressure [facility] , ) Systolic blood 126 mm[Hg] 126 mm[Hg] MEDGEN ([facility] , ) Body weight 142 lb 142 lb MEDGEN ([facility]) Body height 66 in 66 in MEDGEN ([facility]) Heart rate 87 /min 87 /min MEDGEN ([facility]) Respiratory rate 16 /min 16 /min MEDGEN ( [facility]) Body temperature 97.6 F 97.6 F MEDGEN ( [facility]) Inhaled oxygen 100 % 100 % MEDGEN ([facility], ) Body mass index 22.9 kg/m2 22.9 kg/m2 MEDGEN (S t (BMI) [Ratio] [facility] [place], ) Diastolic blood 87 mm[Hg] 87 mm[Hg] MEDGEN (S [facility]) Systolic blood 126 mm[Hg] 126 mm[Hg] MEDGEN ([facility]) Body weight 142 lb 142 lb MEDGEN ([facility]) Body height 66 in 66 in MEDGEN ([facility]) Diastolic blood 87 mm[Hg] 87 mm[Hg] MEDGEN (S t [facility]) Systolic blood 126 mm[Hg] 126 mm[Hg] MEDGEN ([facility]) Body weight 142 lb 142 lb MEDGEN ([facility]) Body height 66 in 66 in MEDGEN ([facility]) Heart rate 87 /min 87 /min MEDGEN ([facility]) Respiratory rate 16 /min 16 /min MEDGEN ( [facility]) Body temperature 97.6 F 97.6 F MEDGEN ( [facility]) Inhaled oxygen 100 % 100 % MEDGEN ([facility], ) Body mass index 22.9 kg/m2 22.9 kg/m2 MEDGEN (S t (BMI) [Ratio] [facility] [place], ) Diastolic blood 87 mm[Hg] 87 mm[Hg] MEDGEN (S t [facility]) Systolic blood 126 mm[Hg] 126 mm[Hg] MEDGEN ([facility]) Body weight 142 lb 142 lb MEDGEN ([facility]) Body height 66 in 66 in MEDGEN ([facility]) Heart rate 87 /min 87 /min MEDGEN ([facility]) Respiratory rate 16 /min 16 /min MEDGEN ( [facility]) Body temperature 97.6 F 97.6 F MEDGEN ( [facility]) Inhaled oxygen 100 % 100 % MEDGEN ([facility]) Body mass index 22.9 kg/m2 22.9 kg/m2 MEDGEN (S t (BMI) [Ratio] [facility] [place], ) Systolic blood 126 mm[Hg] 126 mm[Hg] MEDGEN ([facility]) Body weight 142 lb 142 lb MEDGEN ([facility]) Body height 66 in 66 in MEDGEN ([facility]) Heart rate 87 /min 87 /min MEDGEN ([facility]) Respiratory rate 16 /min 16 /min MEDGEN ( [facility]) Body temperature 97.6 F 97.6 F MEDGEN ( [facility]) Inhaled oxygen 100 % 100 % MEDGEN ([facility], ) Body mass index 22.9 kg/m2 22.9 kg/m2 MEDGEN (S t (BMI) [Ratio] [facility] [place], ) Diastolic blood 87 mm[Hg] 87 mm[Hg] MEDGEN (S t [facility]) Heart rate 87 /min 87 /min MEDGEN ([facility]) Respiratory rate 16 /min 16 /min MEDGEN ( [facility]) Body temperature 97.6 F 97.6 F MEDGEN ( [facility]) Inhaled oxygen 100 % 100 % MEDGEN ([facility], ) Body mass index 22.9 kg/m2 22.9 kg/m2 MEDGEN (S t (BMI) [Ratio] [facility] [place], ) Diastolic blood 87 mm[Hg] 87 mm[Hg] MEDGEN (S t [facility] [place]) Systolic blood 126 mm[Hg] 126 mm[Hg] MEDGEN ([facility]) Body weight 142 lb 142 lb MEDGEN ([facility]) Body height 66 in 66 in MEDGEN ([facility]) Heart rate 87 /min 87 /min MEDGEN ([facility]) Respiratory rate 16 /min 16 /min MEDGEN ( [facility]) Body temperature 97.6 F 97.6 F MEDGEN ( [facility]) Inhaled oxygen 100 % 100 % MEDGEN ([facility], ) Body mass index 22.9 kg/m2 22.9 kg/m2 MEDGEN (S t (BMI) [Ratio] [facility] [place], ) Diastolic blood 87 mm[Hg] 87 mm[Hg] MEDGEN (S [facility] [place] [place]) Systolic blood 126 mm[Hg] 126 mm[Hg] MEDGEN ([facility]) Body weight 142 lb 142 lb MEDGEN ([facility]) Body height 66 in 66 in MEDGEN ([facility]) Heart rate 87 /min 87 /min MEDGEN ([facility]) Respiratory rate 16 /min 16 /min MEDGEN ( [facility]) Body temperature 97.6 F 97.6 F MEDGEN ( [facility]) Inhaled oxygen 100 % 100 % MEDGEN ([facility], ) Body mass index 22.9 kg/m2 22.9 kg/m2 MEDGEN (S t (BMI) [Ratio] [facility] [place], ) Diastolic blood 87 mm[Hg] 87 mm[Hg] MEDGEN (S t [facility]) Systolic blood 126 mm[Hg] 126 mm[Hg] MEDGEN ([facility]) Body weight 142 lb 142 lb MEDGEN ([facility]) Body height 66 in 66 in MEDGEN ([facility]) Heart rate 87 /min 87 /min MEDGEN ([facility]) Respiratory rate 16 /min 16 /min MEDGEN ( [facility]) Body temperature 97.6 F 97.6 F MEDGEN ( [facility]) Inhaled oxygen 100 % 100 % MEDGEN ([facility], ) Body mass index 22.9 kg/m2 22.9 kg/m2 MEDGEN (S t (BMI) [Ratio] [facility] [place], ) Diastolic blood 87 mm[Hg] 87 mm[Hg] MEDGEN (S t [facility]) Systolic blood 126 mm[Hg] 126 mm[Hg] MEDGEN ([facility]) Body weight 142 lb 142 lb MEDGEN ([facility]) Body height 66 in 66 in MEDGEN ([facility]) Heart rate 87 /min 87 /min MEDGEN ([facility]) Respiratory rate 16 /min 16 /min MEDGEN ( [facility]) Body temperature 97.6 F 97.6 F MEDGEN ( [facility]) Inhaled oxygen 100 % 100 % MEDGEN ([facility], ) Body mass index 22.9 kg/m2 22.9 kg/m2 MEDGEN (S t (BMI) [Ratio] [facility] [place], ) Diastolic blood 87 mm[Hg] 87 mm[Hg] MEDGEN (S [facility]) Systolic blood 126 mm[Hg] 126 mm[Hg] MEDGEN ([facility]) Body weight 142 lb 142 lb MEDGEN ([facility]) Body height 66 in 66 in MEDGEN ([facility]) Diastolic blood 87 mm[Hg] 87 mm[Hg] MEDGEN (S [facility]) Systolic blood 126 mm[Hg] 126 mm[Hg] MEDGEN ([facility] , ) Body weight 142 lb 142 lb MEDGEN ([facility]) Body height 66 in 66 in MEDGEN ([facility]) Heart rate 87 /min 87 /min MEDGEN ([facility]) Respiratory rate 16 /min 16 /min MEDGEN ( [facility]) Body temperature 97.6 F 97.6 F MEDGEN ( [facility]) Inhaled oxygen 100 % 100 % MEDGEN ([facility], ) Body mass index 22.9 kg/m2 22.9 kg/m2 MEDGEN (S t (BMI) [Ratio] [facility] [place], ) Diastolic blood 87 mm[Hg] 87 mm[Hg] MEDGEN (S [facility]) Systolic blood 126 mm[Hg] 126 mm[Hg] MEDGEN ([facility]) Heart rate 87 /min 87 /min MEDGEN ([facility]) Respiratory rate 16 /min 16 /min MEDGEN ( [facility]) Body temperature 97.6 F 97.6 F MEDGEN ( [facility]) Inhaled oxygen 100 % 100 % MEDGEN ([facility], ) Body mass index 22.9 kg/m2 22.9 kg/m2 MEDGEN (S t (BMI) [Ratio] [facility] [place], ) Body weight 142 lb 142 lb MEDGEN ([facility]) Body height 66 in 66 in MEDGEN ([facility]) Heart rate 87 /min 87 /min MEDGEN ([facility]) Respiratory rate 16 /min 16 /min MEDGEN ( [facility]) Body temperature 97.6 F 97.6 F MEDGEN ( [facility]) Inhaled oxygen 100 % 100 % MEDGEN ([facility]) Body mass index 22.9 kg/m2 22.9 kg/m2 MEDGEN (S t (BMI) [Ratio] [facility] [place], ) Diastolic blood 87 mm[Hg] 87 mm[Hg] MEDGEN (S [facility]) Systolic blood 126 mm[Hg] 126 mm[Hg] MEDGEN ([facility]) Body weight 142 lb 142 lb MEDGEN ([facility]) Body height 66 in 66 in MEDGEN ([facility]) Heart rate 87 /min 87 /min MEDGEN ([facility]) Respiratory rate 16 /min 16 /min MEDGEN ( [facility]) Body temperature 97.6 F 97.6 F MEDGEN ( [facility]) Inhaled oxygen 100 % 100 % MEDGEN ([facility], ) Body mass index 22.9 kg/m2 22.9 kg/m2 MEDGEN (S t (BMI) [Ratio] [facility] [place], ) Diastolic blood 87 mm[Hg] 87 mm[Hg] MEDGEN (S [facility]) Systolic blood 126 mm[Hg] 126 mm[Hg] MEDGEN ([facility]) Body weight 142 lb 142 lb MEDGEN ([facility]) Body height 66 in 66 in MEDGEN ([facility]) Systolic blood 126 mm[Hg] 126 mm[Hg] MEDGEN ([facility]) Body weight 142 lb 142 lb MEDGEN ([facility]) Body height 66 in 66 in MEDGEN ([facility]) Heart rate 87 /min 87 /min MEDGEN ([facility]) Respiratory rate 16 /min 16 /min MEDGEN ( [facility]) Body temperature 97.6 F 97.6 F MEDGEN ( [facility]) Inhaled oxygen 100 % 100 % MEDGEN ([facility], ) Body mass index 22.9 kg/m2 22.9 kg/m2 MEDGEN (S t (BMI) [Ratio] [facility] [place], ) Diastolic blood 87 mm[Hg] 87 mm[Hg] MEDGEN (S t [facility]) Heart rate 72 /min 72 /min MEDGEN ([facility]) Respiratory rate 16 /min 16 /min MEDGEN ( [facility]) Body temperature 97.4 F 97.4 F MEDGEN ( [facility]) Inhaled oxygen 100 % 100 % MEDGEN ([facility], ) Body mass index 22.3 kg/m2 22.3 kg/m2 MEDGEN (S t (BMI) [Ratio] [facility] [place], ) Diastolic blood 94 mm[Hg] 94 mm[Hg] MEDGEN (S [facility]) Systolic blood 139 mm[Hg] 139 mm[Hg] MEDGEN ([facility]) Body weight 138 lb 138 lb MEDGEN ([facility]) Body height 66 in 66 in MEDGEN ([facility]) Heart rate 72 /min 72 /min MEDGEN ([facility]) Respiratory rate 16 /min 16 /min MEDGEN ( [facility]) Body temperature 97.4 F 97.4 F MEDGEN ( [facility]) Inhaled oxygen 100 % 100 % MEDGEN ([facility]) Body mass index 22.3 kg/m2 22.3 kg/m2 MEDGEN (S t (BMI) [Ratio] [facility] [place], ) Diastolic blood 94 mm[Hg] 94 mm[Hg] MEDGEN (S t [facility]) Systolic blood 139 mm[Hg] 139 mm[Hg] MEDGEN ([facility]) Body weight 138 lb 138 lb MEDGEN ([facility]) Body height 66 in 66 in MEDGEN ([facility]) Body mass index 22.3 kg/m2 22.3 kg/m2 MEDGEN (S t (BMI) [Ratio] [facility] [place], ) Diastolic blood 94 mm[Hg] 94 mm[Hg] MEDGEN (S t [facility]) Systolic blood 139 mm[Hg] 139 mm[Hg] MEDGEN ([facility]) Body weight 138 lb 138 lb MEDGEN ([facility]) Body height 66 in 66 in MEDGEN ([facility]) Heart rate 72 /min 72 /min MEDGEN ([facility]) Respiratory rate 16 /min 16 /min MEDGEN ( [facility]) Body temperature 97.4 F 97.4 F MEDGEN ( [facility]) Inhaled oxygen 100 % 100 % MEDGEN ([facility], ) Body mass index 22.3 kg/m2 22.3 kg/m2 MEDGEN (S t (BMI) [Ratio] [facility] [place], ) Diastolic blood 94 mm[Hg] 94 mm[Hg] MEDGEN (S t [facility]) Systolic blood 139 mm[Hg] 139 mm[Hg] MEDGEN ([facility]) Body weight 138 lb 138 lb MEDGEN ([facility]) Body height 66 in 66 in MEDGEN ([facility]) Heart rate 72 /min 72 /min MEDGEN ([facility]) Respiratory rate 16 /min 16 /min MEDGEN ( [facility]) Body temperature 97.4 F 97.4 F MEDGEN ( [facility]) Inhaled oxygen 100 % 100 % MEDGEN ([facility], ) Heart rate 72 /min 72 /min MEDGEN ([facility]) Respiratory rate 16 /min 16 /min MEDGEN ( [facility]) Body temperature 97.4 F 97.4 F MEDGEN ( [facility]) Inhaled oxygen 100 % 100 % MEDGEN ([facility], ) Body mass index 22.3 kg/m2 22.3 kg/m2 MEDGEN (S t (BMI) [Ratio] [facility] [place], ) Diastolic blood 94 mm[Hg] 94 mm[Hg] MEDGEN (S t pressure [facility] [place] , ) Systolic blood 139 mm[Hg] 139 mm[Hg] MEDGEN ([facility] [place] , ) Body weight 138 lb 138 lb MEDGEN ([facility]) Body height 66 in 66 in MEDGEN ([facility]) Heart rate 72 /min 72 /min MEDGEN ([facility]) Respiratory rate 16 /min 16 /min MEDGEN ( [facility]) Body temperature 97.4 F 97.4 F MEDGEN ( [facility]) Inhaled oxygen 100 % 100 % MEDGEN ([facility], ) Body mass index 22.3 kg/m2 22.3 kg/m2 MEDGEN (S t (BMI) [Ratio] [facility] [facility] ) Diastolic blood 94 mm[Hg] 94 mm[Hg] MEDGEN ([facility]) Systolic blood 139 mm[Hg] 139 mm[Hg] MEDGEN ([facility]) Body weight 138 lb 138 lb MEDGEN ([facility]) Body height 66 in 66 in MEDGEN ([facility]) Heart rate 72 /min 72 /min MEDGEN ([facility]) Respiratory rate 16 /min 16 /min MEDGEN ( [facility]) Body temperature 97.4 F 97.4 F MEDGEN ( [facility]) Inhaled oxygen 100 % 100 % MEDGEN ([facility], ) Body mass index 22.3 kg/m2 22.3 kg/m2 MEDGEN (S t (BMI) [Ratio] [facility], ) Diastolic blood 94 mm[Hg] 94 mm[Hg] MEDGEN (S t [facility]) Systolic blood 139 mm[Hg] 139 mm[Hg] MEDGEN ([facility]) Body weight 138 lb 138 lb MEDGEN ([facility]) Body height 66 in 66 in MEDGEN ([facility]) Heart rate 72 /min 72 /min MEDGEN ([facility]) Respiratory rate 16 /min 16 /min MEDGEN ( [facility]) Body temperature 97.4 F 97.4 F MEDGEN ( [facility]) Inhaled oxygen 100 % 100 % MEDGEN ([facility], ) Body mass index 22.3 kg/m2 22.3 kg/m2 MEDGEN (S t (BMI) [Ratio] [facility], ) Diastolic blood 94 mm[Hg] 94 mm[Hg] MEDGEN ([facility]) Systolic blood 139 mm[Hg] 139 mm[Hg] MEDGEN ([facility] , ) Body weight 138 lb 138 lb MEDGEN ([facility]) Body height 66 in 66 in MEDGEN ([facility]) Heart rate 72 /min 72 /min MEDGEN ([facility]) Respiratory rate 16 /min 16 /min MEDGEN ( [facility]) Body temperature 97.4 F 97.4 F MEDGEN ( [facility]) Inhaled oxygen 100 % 100 % MEDGEN ([facility], ) Body mass index 22.3 kg/m2 22.3 kg/m2 MEDGEN (S t (BMI) [Ratio] [facility], ) Diastolic blood 94 mm[Hg] 94 mm[Hg] MEDGEN (S t [facility]) Systolic blood 139 mm[Hg] 139 mm[Hg] MEDGEN ([facility]) Body weight 138 lb 138 lb MEDGEN ([facility]) Body height 66 in 66 in MEDGEN ([facility]) Heart rate 72 /min 72 /min MEDGEN ([facility]) Respiratory rate 16 /min 16 /min MEDGEN ( [facility]) Body temperature 97.4 F 97.4 F MEDGEN ( [facility]) Inhaled oxygen 100 % 100 % MEDGEN ([facility]) Body mass index 22.3 kg/m2 22.3 kg/m2 MEDGEN (S t (BMI) [Ratio] [facility]) Diastolic blood 94 mm[Hg] 94 mm[Hg] MEDGEN (S t [facility]) Systolic blood 139 mm[Hg] 139 mm[Hg] MEDGEN ([facility]) Body weight 138 lb 138 lb MEDGEN ([facility]) Body height 66 in 66 in MEDGEN ([facility]) Heart rate 72 /min 72 /min MEDGEN ([facility]) Respiratory rate 16 /min 16 /min MEDGEN ( [facility]) Body temperature 97.4 F 97.4 F MEDGEN ( [facility]) Inhaled oxygen 100 % 100 % MEDGEN ([facility], ) Body mass index 22.3 kg/m2 22.3 kg/m2 MEDGEN (S t (BMI) [Ratio] [facility]) Diastolic blood 94 mm[Hg] 94 mm[Hg] MEDGEN (S t [facility]) Systolic blood 139 mm[Hg] 139 mm[Hg] MEDGEN ([facility]) Body weight 138 lb 138 lb MEDGEN ([facility]) Body height 66 in 66 in MEDGEN ([facility]) Heart rate 72 /min 72 /min MEDGEN ([facility]) Respiratory rate 16 /min 16 /min MEDGEN ( [facility]) Body temperature 97.4 F 97.4 F MEDGEN ( [facility]) Inhaled oxygen 100 % 100 % MEDGEN ([facility], ) Body mass index 22.3 kg/m2 22.3 kg/m2 MEDGEN (S t (BMI) [Ratio] [facility], ) Diastolic blood 94 mm[Hg] 94 mm[Hg] MEDGEN (S t [facility]) Systolic blood 139 mm[Hg] 139 mm[Hg] MEDGEN ([facility]) Body weight 138 lb 138 lb MEDGEN ([facility]) Body height 66 in 66 in MEDGEN ([facility]) Heart rate 72 /min 72 /min MEDGEN ([facility]) Respiratory rate 16 /min 16 /min MEDGEN ( [facility]) Body temperature 97.4 F 97.4 F MEDGEN ( [facility]) Inhaled oxygen 100 % 100 % MEDGEN ([facility], ) Body mass index 22.3 kg/m2 22.3 kg/m2 MEDGEN (S t (BMI) [Ratio] [facility], ) Diastolic blood 94 mm[Hg] 94 mm[Hg] MEDGEN ([facility]) Systolic blood 139 mm[Hg] 139 mm[Hg] MEDGEN ([facility]) Body weight 138 lb 138 lb MEDGEN ([facility]) Body height 66 in 66 in MEDGEN ([facility]) Heart rate 72 /min 72 /min MEDGEN ([facility]) Respiratory rate 16 /min 16 /min MEDGEN ( [facility]) Body temperature 97.4 F 97.4 F MEDGEN ( [facility]) Inhaled oxygen 100 % 100 % MEDGEN ([facility], ) Body mass index 22.3 kg/m2 22.3 kg/m2 MEDGEN (S t (BMI) [Ratio] [facility], ) Diastolic blood 94 mm[Hg] 94 mm[Hg] MEDGEN ([facility]) Systolic blood 139 mm[Hg] 139 mm[Hg] MEDGEN ([facility]) Body weight 138 lb 138 lb MEDGEN ([facility]) Body height 66 in 66 in MEDGEN ([facility]) Heart rate 72 /min 72 /min MEDGEN ([facility]) Respiratory rate 16 /min 16 /min MEDGEN ( [facility]) Body temperature 97.4 F 97.4 F MEDGEN ( [facility]) Inhaled oxygen 100 % 100 % MEDGEN ([facility], ) Body mass index 22.3 kg/m2 22.3 kg/m2 MEDGEN (S t (BMI) [Ratio] [facility], ) Diastolic blood 94 mm[Hg] 94 mm[Hg] MEDGEN ([facility]) Systolic blood 139 mm[Hg] 139 mm[Hg] MEDGEN ([facility]) Body weight 138 lb 138 lb MEDGEN ([facility]) Body height 66 in 66 in MEDGEN ([facility]) Heart rate 72 /min 72 /min MEDGEN ([facility]) Respiratory rate 14 /min 14 /min MEDGEN ( [facility]) Inhaled oxygen 98 % 98 % MEDGEN ([facility], ) Body mass index 22.3 kg/m2 22.3 kg/m2 MEDGEN (S t (BMI) [Ratio] [facility], ) Diastolic blood 94 mm[Hg] 94 mm[Hg] MEDGEN ([facility]) Systolic blood 139 mm[Hg] 139 mm[Hg] MEDGEN ([facility]) Body weight 138 lb 138 lb MEDGEN ([facility]) Body height 66 in 66 in MEDGEN ([facility]) Heart rate 72 /min 72 /min MEDGEN ([facility]) Respiratory rate 14 /min 14 /min MEDGEN ( [facility]) Inhaled oxygen 98 % 98 % MEDGEN ([facility], ) Body mass index 22.3 kg/m2 22.3 kg/m2 MEDGEN (S t (BMI) [Ratio] [facility], ) Diastolic blood 94 mm[Hg] 94 mm[Hg] MEDGEN (S t pressure [facility] , ) Systolic blood 139 mm[Hg] 139 mm[Hg] MEDGEN ([facility] , ) Body weight 138 lb 138 lb MEDGEN ([facility]) Body height 66 in 66 in MEDGEN ([facility]) Heart rate 72 /min 72 /min MEDGEN ([facility]) Respiratory rate 14 /min 14 /min MEDGEN ( [facility]) Inhaled oxygen 98 % 98 % MEDGEN ([facility], ) Body mass index 22.3 kg/m2 22.3 kg/m2 MEDGEN (S t (BMI) [Ratio] [facility], ) Diastolic blood 94 mm[Hg] 94 mm[Hg] MEDGEN ([facility]) Systolic blood 139 mm[Hg] 139 mm[Hg] MEDGEN ([facility] , ) Body weight 138 lb 138 lb MEDGEN ([facility]) Body height 66 in 66 in MEDGEN ([facility]) Heart rate 72 /min 72 /min MEDGEN ([facility]) Respiratory rate 14 /min 14 /min MEDGEN ( [facility]) Inhaled oxygen 98 % 98 % MEDGEN ([facility], ) Body mass index 22.3 kg/m2 22.3 kg/m2 MEDGEN (S t (BMI) [Ratio] [facility], ) Diastolic blood 94 mm[Hg] 94 mm[Hg] MEDGEN (S t pressure [facility] , ) Systolic blood 139 mm[Hg] 139 mm[Hg] MEDGEN ([facility] , ) Body weight 138 lb 138 lb MEDGEN ([facility]) Body height 66 in 66 in MEDGEN ([facility]) Heart rate 72 /min 72 /min MEDGEN ([facility]) Respiratory rate 14 /min 14 /min MEDGEN ( [facility]) Inhaled oxygen 98 % 98 % MEDGEN ([facility]) Body mass index 22.3 kg/m2 22.3 kg/m2 MEDGEN (S t (BMI) [Ratio] [facility], ) Diastolic blood 94 mm[Hg] 94 mm[Hg] MEDGEN (S t [facility]) Systolic blood 139 mm[Hg] 139 mm[Hg] MEDGEN ([facility]) Body weight 138 lb 138 lb MEDGEN ([facility]) Body height 66 in 66 in MEDGEN ([facility]) Heart rate 72 /min 72 /min MEDGEN ([facility]) Respiratory rate 14 /min 14 /min MEDGEN ( [facility]) Inhaled oxygen 98 % 98 % MEDGEN ([facility], ) Body mass index 22.3 kg/m2 22.3 kg/m2 MEDGEN (S t (BMI) [Ratio] [facility], ) Diastolic blood 94 mm[Hg] 94 mm[Hg] MEDGEN (S t [facility]) Systolic blood 139 mm[Hg] 139 mm[Hg] MEDGEN ([facility]) Body weight 138 lb 138 lb MEDGEN ([facility]) Body height 66 in 66 in MEDGEN ([facility]) Heart rate 72 /min 72 /min MEDGEN ([facility]) Respiratory rate 14 /min 14 /min MEDGEN ( [facility]) Inhaled oxygen 98 % 98 % MEDGEN ([facility], ) Body mass index 22.3 kg/m2 22.3 kg/m2 MEDGEN (S t (BMI) [Ratio] [facility], ) Diastolic blood 94 mm[Hg] 94 mm[Hg] MEDGEN ([facility]) Systolic blood 139 mm[Hg] 139 mm[Hg] MEDGEN ([facility]) Body weight 138 lb 138 lb MEDGEN ([facility]) Body height 66 in 66 in MEDGEN ([facility]) Heart rate 72 /min 72 /min MEDGEN ([facility]) Respiratory rate 14 /min 14 /min MEDGEN ( [facility]) Inhaled oxygen 98 % 98 % MEDGEN ([facility], ) Body mass index 22.3 kg/m2 22.3 kg/m2 MEDGEN (S t (BMI) [Ratio] [facility], ) Diastolic blood 94 mm[Hg] 94 mm[Hg] MEDGEN ([facility]) Systolic blood 139 mm[Hg] 139 mm[Hg] MEDGEN ([facility]) Body weight 138 lb 138 lb MEDGEN ([facility]) Body height 66 in 66 in MEDGEN ([facility]) Heart rate 72 /min 72 /min MEDGEN ([facility]) Respiratory rate 14 /min 14 /min MEDGEN ( [facility]) Inhaled oxygen 98 % 98 % MEDGEN ([facility], ) Body mass index 22.3 kg/m2 22.3 kg/m2 MEDGEN (S t (BMI) [Ratio] [facility], ) Diastolic blood 94 mm[Hg] 94 mm[Hg] MEDGEN ([facility]) Systolic blood 139 mm[Hg] 139 mm[Hg] MEDGEN ([facility]) Body weight 138 lb 138 lb MEDGEN ([facility]) Body height 66 in 66 in MEDGEN ([facility]) Heart rate 72 /min 72 /min MEDGEN ([facility]) Respiratory rate 14 /min 14 /min MEDGEN ( [facility]) Inhaled oxygen 98 % 98 % MEDGEN ([facility], ) Body mass index 22.3 kg/m2 22.3 kg/m2 MEDGEN (S t (BMI) [Ratio] [facility], ) Diastolic blood 94 mm[Hg] 94 mm[Hg] MEDGEN ([facility]) Systolic blood 139 mm[Hg] 139 mm[Hg] MEDGEN ([facility] , ) Body weight 138 lb 138 lb MEDGEN ([facility]) Body height 66 in 66 in MEDGEN ([facility]) Heart rate 72 /min 72 /min MEDGEN ([facility]) Respiratory rate 14 /min 14 /min MEDGEN ( [facility]) Inhaled oxygen 98 % 98 % MEDGEN ([facility], ) Body mass index 22.3 kg/m2 22.3 kg/m2 MEDGEN (S t (BMI) [Ratio] [facility], ) Diastolic blood 94 mm[Hg] 94 mm[Hg] MEDGEN (S t pressure [facility] , ) Systolic blood 139 mm[Hg] 139 mm[Hg] MEDGEN ([facility] , ) Body weight 138 lb 138 lb MEDGEN ([facility]) Body height 66 in 66 in MEDGEN ([facility]) Heart rate 72 /min 72 /min MEDGEN ([facility] , ) Respiratory rate 14 /min 14 /min MEDGEN ( [facility]) Inhaled oxygen 98 % 98 % MEDGEN ([facility], ) Body mass index 22.3 kg/m2 22.3 kg/m2 MEDGEN (S t (BMI) [Ratio] [facility], ) Diastolic blood 94 mm[Hg] 94 mm[Hg] MEDGEN ([facility]) Systolic blood 139 mm[Hg] 139 mm[Hg] MEDGEN ([facility] , ) Body weight 138 lb 138 lb MEDGEN ([facility]) Body height 66 in 66 in MEDGEN ([facility]) Heart rate 72 /min 72 /min MEDGEN ([facility] , ) Respiratory rate 14 /min 14 /min MEDGEN ( [facility]) Inhaled oxygen 98 % 98 % MEDGEN ([facility], ) Body mass index 22.3 kg/m2 22.3 kg/m2 MEDGEN (S t (BMI) [Ratio] [facility], ) Diastolic blood 94 mm[Hg] 94 mm[Hg] MEDGEN (S t pressure [facility] , ) Systolic blood 139 mm[Hg] 139 mm[Hg] MEDGEN ([facility]) Body weight 138 lb 138 lb MEDGEN ([facility]) Body height 66 in 66 in MEDGEN ([facility]) Heart rate 72 /min 72 /min MEDGEN ([facility]) Respiratory rate 14 /min 14 /min MEDGEN ( [facility]) Inhaled oxygen 98 % 98 % MEDGEN ([facility], ) Body mass index 22.3 kg/m2 22.3 kg/m2 MEDGEN (S t (BMI) [Ratio] [facility], ) Diastolic blood 94 mm[Hg] 94 mm[Hg] MEDGEN (S t pressure [facility] , ) Systolic blood 139 mm[Hg] 139 mm[Hg] MEDGEN ([facility] , ) Body weight 138 lb 138 lb MEDGEN ([facility]) Body height 66 in 66 in MEDGEN ([facility]) Heart rate 72 /min 72 /min MEDGEN ([facility]) Respiratory rate 14 /min 14 /min MEDGEN ( [facility]) Inhaled oxygen 98 % 98 % MEDGEN ([facility], ) Body mass index 22.3 kg/m2 22.3 kg/m2 MEDGEN (S t (BMI) [Ratio] [facility], ) Diastolic blood 94 mm[Hg] 94 mm[Hg] MEDGEN (S t pressure [facility] , ) Systolic blood 139 mm[Hg] 139 mm[Hg] MEDGEN ([facility] , ) Body weight 138 lb 138 lb MEDGEN ([facility]) Body height 66 in 66 in MEDGEN ([facility]) Heart rate 78 /min 78 /min MEDGEN ([facility]) Respiratory rate 16 /min 16 /min MEDGEN ( [facility]) Body temperature 97.8 F 97.8 F MEDGEN ( [facility]) Inhaled oxygen 100 % 100 % MEDGEN ([facility], ) Body mass index 22.4 kg/m2 22.4 kg/m2 MEDGEN (S t (BMI) [Ratio] [facility], ) Diastolic blood 101 mm[Hg] 101 mm[Hg] MEDGEN ([facility]) Systolic blood 151 mm[Hg] 151 mm[Hg] MEDGEN ([facility]) Body weight 139 lb 139 lb MEDGEN ([facility]) Body height 66 in 66 in MEDGEN ([facility]) Heart rate 78 /min 78 /min MEDGEN ([facility]) Respiratory rate 16 /min 16 /min MEDGEN ( [facility]) Body temperature 97.8 F 97.8 F MEDGEN ( [facility]) Inhaled oxygen 100 % 100 % MEDGEN ([facility]) Body mass index 22.4 kg/m2 22.4 kg/m2 MEDGEN (S t (BMI) [Ratio] [facility], ) Diastolic blood 101 mm[Hg] 101 mm[Hg] MEDGEN (S t [facility]) Systolic blood 151 mm[Hg] 151 mm[Hg] MEDGEN ([facility]) Body weight 139 lb 139 lb MEDGEN ([facility]) Body height 66 in 66 in MEDGEN ([facility]) Heart rate 78 /min 78 /min MEDGEN ([facility]) Respiratory rate 16 /min 16 /min MEDGEN ( [facility]) Body temperature 97.8 F 97.8 F MEDGEN ( [facility]) Inhaled oxygen 100 % 100 % MEDGEN ([facility]) Body mass index 22.4 kg/m2 22.4 kg/m2 MEDGEN (S t (BMI) [Ratio] [facility], ) Diastolic blood 101 mm[Hg] 101 mm[Hg] MEDGEN (S t [facility]) Systolic blood 151 mm[Hg] 151 mm[Hg] MEDGEN ([facility]) Body weight 139 lb 139 lb MEDGEN ([facility]) Body height 66 in 66 in MEDGEN ([facility]) Heart rate 78 /min 78 /min MEDGEN ([facility]) Respiratory rate 16 /min 16 /min MEDGEN ( [facility]) Body temperature 97.8 F 97.8 F MEDGEN ( [facility]) Inhaled oxygen 100 % 100 % MEDGEN ([facility], ) Body mass index 22.4 kg/m2 22.4 kg/m2 MEDGEN (S t (BMI) [Ratio] [facility], ) Diastolic blood 101 mm[Hg] 101 mm[Hg] MEDGEN (S t [facility]) Systolic blood 151 mm[Hg] 151 mm[Hg] MEDGEN ([facility]) Body weight 139 lb 139 lb MEDGEN ([facility]) Body height 66 in 66 in MEDGEN ([facility]) Heart rate 78 /min 78 /min MEDGEN ([facility]) Respiratory rate 16 /min 16 /min MEDGEN ( [facility]) Body temperature 97.8 F 97.8 F MEDGEN ( [facility]) Inhaled oxygen 100 % 100 % MEDGEN ([facility], ) Body mass index 22.4 kg/m2 22.4 kg/m2 MEDGEN (S t (BMI) [Ratio] [facility], ) Diastolic blood 101 mm[Hg] 101 mm[Hg] MEDGEN (S [facility]) Systolic blood 151 mm[Hg] 151 mm[Hg] MEDGEN ([facility]) Body weight 139 lb 139 lb MEDGEN ([facility]) Body height 66 in 66 in MEDGEN ([facility]) Heart rate 78 /min 78 /min MEDGEN ([facility]) Respiratory rate 16 /min 16 /min MEDGEN ( [facility]) Body temperature 97.8 F 97.8 F MEDGEN ( [facility]) Inhaled oxygen 100 % 100 % MEDGEN ([facility], ) Body mass index 22.4 kg/m2 22.4 kg/m2 MEDGEN (S t (BMI) [Ratio] [facility], ) Diastolic blood 101 mm[Hg] 101 mm[Hg] MEDGEN (S t [facility]) Systolic blood 151 mm[Hg] 151 mm[Hg] MEDGEN ([facility]) Body weight 139 lb 139 lb MEDGEN ([facility]) Body height 66 in 66 in MEDGEN ([facility]) Heart rate 78 /min 78 /min MEDGEN ([facility]) Respiratory rate 16 /min 16 /min MEDGEN ( [facility]) Body temperature 97.8 F 97.8 F MEDGEN ( [facility]) Inhaled oxygen 100 % 100 % MEDGEN ([facility]) Body mass index 22.4 kg/m2 22.4 kg/m2 MEDGEN (S t (BMI) [Ratio] [facility], ) Diastolic blood 101 mm[Hg] 101 mm[Hg] MEDGEN (S t [facility]) Systolic blood 151 mm[Hg] 151 mm[Hg] MEDGEN ([facility]) Body weight 139 lb 139 lb MEDGEN ([facility]) Body height 66 in 66 in MEDGEN ([facility]) Heart rate 78 /min 78 /min MEDGEN ([facility]) Respiratory rate 16 /min 16 /min MEDGEN ( [facility]) Body temperature 97.8 F 97.8 F MEDGEN ( [facility]) Inhaled oxygen 100 % 100 % MEDGEN ([facility], ) Body mass index 22.4 kg/m2 22.4 kg/m2 MEDGEN (S t (BMI) [Ratio] [facility], ) Diastolic blood 101 mm[Hg] 101 mm[Hg] MEDGEN (S [facility]) Systolic blood 151 mm[Hg] 151 mm[Hg] MEDGEN ([facility]) Body weight 139 lb 139 lb MEDGEN ([facility]) Body height 66 in 66 in MEDGEN ([facility]) Heart rate 78 /min 78 /min MEDGEN ([facility] [facility]) Respiratory rate 16 /min 16 /min MEDGEN ( [facility]) Body temperature 97.8 F 97.8 F MEDGEN ( [facility]) Inhaled oxygen 100 % 100 % MEDGEN ([facility]) Body mass index 22.4 kg/m2 22.4 kg/m2 MEDGEN (S t (BMI) [Ratio] [facility]) Diastolic blood 101 mm[Hg] 101 mm[Hg] MEDGEN ([facility]) Systolic blood 151 mm[Hg] 151 mm[Hg] MEDGEN ([facility]) Body weight 139 lb 139 lb MEDGEN ([facility]) Body height 66 in 66 in MEDGEN ([facility]) Heart rate 78 /min 78 /min MEDGEN ([facility]) Respiratory rate 16 /min 16 /min MEDGEN ( [facility]) Body temperature 97.8 F 97.8 F MEDGEN ( [facility]) Inhaled oxygen 100 % 100 % MEDGEN ([facility]) Body mass index 22.4 kg/m2 22.4 kg/m2 MEDGEN (S t (BMI) [Ratio] [facility] [place]) Diastolic blood 101 mm[Hg] 101 mm[Hg] MEDGEN (S [facility]) Systolic blood 151 mm[Hg] 151 mm[Hg] MEDGEN ([facility]) Body weight 139 lb 139 lb MEDGEN ([facility]) Body height 66 in 66 in MEDGEN ([facility]) Heart rate 78 /min 78 /min MEDGEN ([facility]) Respiratory rate 16 /min 16 /min MEDGEN ( [facility]) Body temperature 97.8 F 97.8 F MEDGEN ( [facility]) Inhaled oxygen 100 % 100 % MEDGEN ([facility]) Body mass index 22.4 kg/m2 22.4 kg/m2 MEDGEN (S t (BMI) [Ratio] [facility], ) Diastolic blood 101 mm[Hg] 101 mm[Hg] MEDGEN ([facility]) Systolic blood 151 mm[Hg] 151 mm[Hg] MEDGEN ([facility]) Body weight 139 lb 139 lb MEDGEN ([facility]) Body height 66 in 66 in MEDGEN ([facility]) Heart rate 78 /min 78 /min MEDGEN ([facility]) Respiratory rate 16 /min 16 /min MEDGEN ( [facility]) Body temperature 97.8 F 97.8 F MEDGEN ( [facility]) Inhaled oxygen 100 % 100 % MEDGEN ([facility], ) Body mass index 22.4 kg/m2 22.4 kg/m2 MEDGEN (S t (BMI) [Ratio] [facility], ) Diastolic blood 101 mm[Hg] 101 mm[Hg] MEDGEN ([facility]) Systolic blood 151 mm[Hg] 151 mm[Hg] MEDGEN ([facility]) Body weight 139 lb 139 lb MEDGEN ([facility]) Body height 66 in 66 in MEDGEN ([facility]) Heart rate 78 /min 78 /min MEDGEN ([facility]) Respiratory rate 16 /min 16 /min MEDGEN ( [facility]) Body temperature 97.8 F 97.8 F MEDGEN ( [facility]) Inhaled oxygen 100 % 100 % MEDGEN ([facility], ) Body mass index 22.4 kg/m2 22.4 kg/m2 MEDGEN (S t (BMI) [Ratio] [facility], ) Diastolic blood 101 mm[Hg] 101 mm[Hg] MEDGEN ([facility]) Systolic blood 151 mm[Hg] 151 mm[Hg] MEDGEN ([facility]) Body weight 139 lb 139 lb MEDGEN ([facility]) Body height 66 in 66 in MEDGEN ([facility]) Heart rate 78 /min 78 /min MEDGEN ([facility]) Respiratory rate 16 /min 16 /min MEDGEN ( [facility]) Body temperature 97.8 F 97.8 F MEDGEN ( [facility]) Inhaled oxygen 100 % 100 % MEDGEN ([facility]) Body mass index 22.4 kg/m2 22.4 kg/m2 MEDGEN (S t (BMI) [Ratio] [facility] [place]) Diastolic blood 101 mm[Hg] 101 mm[Hg] MEDGEN (S t [facility]) Systolic blood 151 mm[Hg] 151 mm[Hg] MEDGEN ([facility]) Body weight 139 lb 139 lb MEDGEN ([facility]) Body height 66 in 66 in MEDGEN ([facility]) Heart rate 78 /min 78 /min MEDGEN ([facility]) Respiratory rate 16 /min 16 /min MEDGEN ( [facility]) Body temperature 97.8 F 97.8 F MEDGEN ( [facility]) Inhaled oxygen 100 % 100 % MEDGEN ([facility]) Body mass index 22.4 kg/m2 22.4 kg/m2 MEDGEN (S t (BMI) [Ratio] [facility] [place]) Diastolic blood 101 mm[Hg] 101 mm[Hg] MEDGEN (S t [facility]) Systolic blood 151 mm[Hg] 151 mm[Hg] MEDGEN ([facility]) Body weight 139 lb 139 lb MEDGEN ([facility]) Body height 66 in 66 in MEDGEN ([facility]) Heart rate 82 /min 82 /min MEDGEN ([facility]) Respiratory rate 16 /min 16 /min MEDGEN ( [facility]) Body temperature 98.7 F 98.7 F MEDGEN ( [facility]) Inhaled oxygen 98 % 98 % MEDGEN ([facility]) Body mass index 22.4 kg/m2 22.4 kg/m2 MEDGEN (S t (BMI) [Ratio] [facility] [place]) Diastolic blood 97 mm[Hg] 97 mm[Hg] MEDGEN ([facility]) Systolic blood 171 mm[Hg] 171 mm[Hg] MEDGEN ([facility]) Body weight 139 lb 139 lb MEDGEN ([facility]) Body height 66 in 66 in MEDGEN ([facility]) Heart rate 82 /min 82 /min MEDGEN ([facility]) Respiratory rate 16 /min 16 /min MEDGEN ( [facility]) Body temperature 98.7 F 98.7 F MEDGEN ( [facility]) Inhaled oxygen 98 % 98 % MEDGEN ([facility]) Body mass index 22.4 kg/m2 22.4 kg/m2 MEDGEN (S t (BMI) [Ratio] [facility], ) Diastolic blood 97 mm[Hg] 97 mm[Hg] MEDGEN ([facility] [place] [place]) Systolic blood 171 mm[Hg] 171 mm[Hg] MEDGEN ([facility]) Body weight 139 lb 139 lb MEDGEN ([facility]) Body height 66 in 66 in MEDGEN ([facility]) Heart rate 82 /min 82 /min MEDGEN ([facility]) Respiratory rate 16 /min 16 /min MEDGEN ( [facility]) Body temperature 98.7 F 98.7 F MEDGEN ( [facility]) Inhaled oxygen 98 % 98 % MEDGEN ([facility]) Body mass index 22.4 kg/m2 22.4 kg/m2 MEDGEN (S t (BMI) [Ratio] [facility], ) Diastolic blood 97 mm[Hg] 97 mm[Hg] MEDGEN (S t [facility]) Systolic blood 171 mm[Hg] 171 mm[Hg] MEDGEN ([facility]) Body weight 139 lb 139 lb MEDGEN ([facility]) Body height 66 in 66 in MEDGEN ([facility]) Heart rate 82 /min 82 /min MEDGEN ([facility]) Respiratory rate 16 /min 16 /min MEDGEN ( [facility]) Body temperature 98.7 F 98.7 F MEDGEN ( [facility]) Inhaled oxygen 98 % 98 % MEDGEN ([facility]) Body mass index 22.4 kg/m2 22.4 kg/m2 MEDGEN (S t (BMI) [Ratio] [facility] [place]) Diastolic blood 97 mm[Hg] 97 mm[Hg] MEDGEN ([facility]) Systolic blood 171 mm[Hg] 171 mm[Hg] MEDGEN ([facility]) Body weight 139 lb 139 lb MEDGEN ([facility]) Body height 66 in 66 in MEDGEN ([facility]) Heart rate 82 /min 82 /min MEDGEN ([facility]) Respiratory rate 16 /min 16 /min MEDGEN ( [facility]) Body temperature 98.7 F 98.7 F MEDGEN ( [facility]) Inhaled oxygen 98 % 98 % MEDGEN ([facility]) Body mass index 22.4 kg/m2 22.4 kg/m2 MEDGEN (S t (BMI) [Ratio] [facility]) Diastolic blood 97 mm[Hg] 97 mm[Hg] MEDGEN (S [facility] [place] [place]) Systolic blood 171 mm[Hg] 171 mm[Hg] MEDGEN ([facility]) Body weight 139 lb 139 lb MEDGEN ([facility]) Body height 66 in 66 in MEDGEN ([facility]) Heart rate 82 /min 82 /min MEDGEN ([facility]) Respiratory rate 16 /min 16 /min MEDGEN ( [facility]) Body temperature 98.7 F 98.7 F MEDGEN ( [facility]) Inhaled oxygen 98 % 98 % MEDGEN ([facility]) Body mass index 22.4 kg/m2 22.4 kg/m2 MEDGEN (S t (BMI) [Ratio] [facility]) Diastolic blood 97 mm[Hg] 97 mm[Hg] MEDGEN (S [facility]) Systolic blood 171 mm[Hg] 171 mm[Hg] MEDGEN ([facility]) Body weight 139 lb 139 lb MEDGEN ([facility]) Body height 66 in 66 in MEDGEN ([facility]) Heart rate 82 /min 82 /min MEDGEN ([facility]) Respiratory rate 16 /min 16 /min MEDGEN ( [facility]) Body temperature 98.7 F 98.7 F MEDGEN ( [facility]) Inhaled oxygen 98 % 98 % MEDGEN ([facility]) Body mass index 22.4 kg/m2 22.4 kg/m2 MEDGEN (S t (BMI) [Ratio] [facility], ) Diastolic blood 97 mm[Hg] 97 mm[Hg] MEDGEN (S t [facility]) Systolic blood 171 mm[Hg] 171 mm[Hg] MEDGEN ([facility]) Body weight 139 lb 139 lb MEDGEN ([facility]) Body height 66 in 66 in MEDGEN ([facility]) Heart rate 82 /min 82 /min MEDGEN ([facility]) Respiratory rate 16 /min 16 /min MEDGEN ( [facility]) Body temperature 98.7 F 98.7 F MEDGEN ( [facility]) Inhaled oxygen 98 % 98 % MEDGEN ([facility]) Body mass index 22.4 kg/m2 22.4 kg/m2 MEDGEN (S t (BMI) [Ratio] [facility], ) Diastolic blood 97 mm[Hg] 97 mm[Hg] MEDGEN ([facility]) Systolic blood 171 mm[Hg] 171 mm[Hg] MEDGEN ([facility]) Body weight 139 lb 139 lb MEDGEN ([facility]) Body height 66 in 66 in MEDGEN ([facility]) Heart rate 82 /min 82 /min MEDGEN ([facility]) Respiratory rate 16 /min 16 /min MEDGEN ( [facility]) Body temperature 98.7 F 98.7 F MEDGEN ( [facility]) Inhaled oxygen 98 % 98 % MEDGEN ([facility]) Body mass index 22.4 kg/m2 22.4 kg/m2 MEDGEN (S t (BMI) [Ratio] [facility], ) Diastolic blood 97 mm[Hg] 97 mm[Hg] MEDGEN (S t [facility]) Systolic blood 171 mm[Hg] 171 mm[Hg] MEDGEN ([facility]) Body weight 139 lb 139 lb MEDGEN ([facility]) Body height 66 in 66 in MEDGEN ([facility]) Heart rate 82 /min 82 /min MEDGEN ([facility]) Respiratory rate 16 /min 16 /min MEDGEN ( [facility]) Body temperature 98.7 F 98.7 F MEDGEN ( [facility]) Inhaled oxygen 98 % 98 % MEDGEN ([facility]) Body mass index 22.4 kg/m2 22.4 kg/m2 MEDGEN (S t (BMI) [Ratio] [facility], ) Diastolic blood 97 mm[Hg] 97 mm[Hg] MEDGEN (S t [facility]) Systolic blood 171 mm[Hg] 171 mm[Hg] MEDGEN ([facility]) Body weight 139 lb 139 lb MEDGEN ([facility]) Body height 66 in 66 in MEDGEN ([facility]) Heart rate 82 /min 82 /min MEDGEN ([facility]) Respiratory rate 16 /min 16 /min MEDGEN ( [facility]) Body temperature 98.7 F 98.7 F MEDGEN ( [facility]) Inhaled oxygen 98 % 98 % MEDGEN ([facility]) Body mass index 22.4 kg/m2 22.4 kg/m2 MEDGEN (S t (BMI) [Ratio] [facility]) Diastolic blood 97 mm[Hg] 97 mm[Hg] MEDGEN ([facility]) Systolic blood 171 mm[Hg] 171 mm[Hg] MEDGEN ([facility]) Body weight 139 lb 139 lb MEDGEN ([facility]) Body height 66 in 66 in MEDGEN ([facility]) Heart rate 82 /min 82 /min MEDGEN ([facility]) Respiratory rate 16 /min 16 /min MEDGEN ( [facility]) Body temperature 98.7 F 98.7 F MEDGEN ( [facility]) Inhaled oxygen 98 % 98 % MEDGEN ([facility]) Body mass index 22.4 kg/m2 22.4 kg/m2 MEDGEN (S t (BMI) [Ratio] [facility], ) Diastolic blood 97 mm[Hg] 97 mm[Hg] MEDGEN ([facility]) Systolic blood 171 mm[Hg] 171 mm[Hg] MEDGEN ([facility]) Body weight 139 lb 139 lb MEDGEN ([facility]) Body height 66 in 66 in MEDGEN ([facility]) Heart rate 82 /min 82 /min MEDGEN ([facility]) Respiratory rate 16 /min 16 /min MEDGEN ( [facility]) Body temperature 98.7 F 98.7 F MEDGEN ( [facility]) Inhaled oxygen 98 % 98 % MEDGEN ([facility]) Body mass index 22.4 kg/m2 22.4 kg/m2 MEDGEN (S t (BMI) [Ratio] [facility], ) Diastolic blood 97 mm[Hg] 97 mm[Hg] MEDGEN (S [facility] [place] [place]) Systolic blood 171 mm[Hg] 171 mm[Hg] MEDGEN ([facility]) Body weight 139 lb 139 lb MEDGEN ([facility]) Body height 66 in 66 in MEDGEN ([facility]) Heart rate 82 /min 82 /min MEDGEN ([facility]) Respiratory rate 16 /min 16 /min MEDGEN ( [facility]) Body temperature 98.7 F 98.7 F MEDGEN ( [facility]) Inhaled oxygen 98 % 98 % MEDGEN ([facility]) Body mass index 22.4 kg/m2 22.4 kg/m2 MEDGEN ([facility] Diastolic blood 97 mm[Hg] 97 mm[Hg] MEDGEN (S [facility]) Systolic blood 171 mm[Hg] 171 mm[Hg] MEDGEN ([facility]) Body weight 139 lb 139 lb MEDGEN ([facility]) Body height 66 in 66 in MEDGEN ([facility]) Heart rate 82 /min 82 /min MEDGEN ([facility]) Respiratory rate 16 /min 16 /min MEDGEN ( [facility]) Body temperature 98.7 F 98.7 F MEDGEN ( [facility]) Inhaled oxygen 98 % 98 % MEDGEN ([facility]) Body mass index 22.4 kg/m2 22.4 kg/m2 MEDGEN (S t (BMI) [Ratio] [facility], ) Diastolic blood 97 mm[Hg] 97 mm[Hg] MEDGEN (S t [facility]) Systolic blood 171 mm[Hg] 171 mm[Hg] MEDGEN ([facility]) Body weight 139 lb 139 lb MEDGEN ([facility]) Body height 66 in 66 in MEDGEN ([facility]) Heart rate 80 /min 80 /min MEDGEN ([facility]) Respiratory rate 14 /min 14 /min MEDGEN ( [facility]) Body temperature 98.4 F 98.4 F MEDGEN ( [facility]) Inhaled oxygen 100 % 100 % MEDGEN ([facility]) Body mass index 22.4 kg/m2 22.4 kg/m2 MEDGEN (S t (BMI) [Ratio] [facility]) Diastolic blood 90 mm[Hg] 90 mm[Hg] MEDGEN ([facility]) Systolic blood 155 mm[Hg] 155 mm[Hg] MEDGEN ([facility]) Body weight 139 lb 139 lb MEDGEN ([facility]) Body height 66 in 66 in MEDGEN ([facility]) Heart rate 80 /min 80 /min MEDGEN ([facility]) Respiratory rate 14 /min 14 /min MEDGEN ( [facility]) Body temperature 98.4 F 98.4 F MEDGEN ( [facility]) Inhaled oxygen 100 % 100 % MEDGEN ([facility]) Body mass index 22.4 kg/m2 22.4 kg/m2 MEDGEN (S t (BMI) [Ratio] [facility], ) Diastolic blood 90 mm[Hg] 90 mm[Hg] MEDGEN ([facility]) Systolic blood 155 mm[Hg] 155 mm[Hg] MEDGEN ([facility]) Body weight 139 lb 139 lb MEDGEN ([facility]) Body height 66 in 66 in MEDGEN ([facility]) Heart rate 80 /min 80 /min MEDGEN ([facility]) Respiratory rate 14 /min 14 /min MEDGEN ( [facility]) Body temperature 98.4 F 98.4 F MEDGEN ( [facility]) Inhaled oxygen 100 % 100 % MEDGEN ([facility]) Body mass index 22.4 kg/m2 22.4 kg/m2 MEDGEN (S t (BMI) [Ratio] [facility] [place]) Diastolic blood 90 mm[Hg] 90 mm[Hg] MEDGEN (S t [facility]) Systolic blood 155 mm[Hg] 155 mm[Hg] MEDGEN ([facility]) Body weight 139 lb 139 lb MEDGEN ([facility]) Body height 66 in 66 in MEDGEN ([facility]) Heart rate 80 /min 80 /min MEDGEN ([facility]) Respiratory rate 14 /min 14 /min MEDGEN ( [facility]) Body temperature 98.4 F 98.4 F MEDGEN ( [facility]) Inhaled oxygen 100 % 100 % MEDGEN ([facility]) Body mass index 22.4 kg/m2 22.4 kg/m2 MEDGEN (S t (BMI) [Ratio] [facility], ) Diastolic blood 90 mm[Hg] 90 mm[Hg] MEDGEN (S t [facility]) Systolic blood 155 mm[Hg] 155 mm[Hg] MEDGEN ([facility]) Body weight 139 lb 139 lb MEDGEN ([facility]) Body height 66 in 66 in MEDGEN ([facility]) Heart rate 80 /min 80 /min MEDGEN ([facility]) Respiratory rate 14 /min 14 /min MEDGEN ( [facility]) Body temperature 98.4 F 98.4 F MEDGEN ( [facility]) Inhaled oxygen 100 % 100 % MEDGEN ([facility]) Body mass index 22.4 kg/m2 22.4 kg/m2 MEDGEN (S t (BMI) [Ratio] [facility]) Diastolic blood 90 mm[Hg] 90 mm[Hg] MEDGEN (S [facility] [place] [place]) Systolic blood 155 mm[Hg] 155 mm[Hg] MEDGEN ([facility]) Body weight 139 lb 139 lb MEDGEN ([facility]) Body height 66 in 66 in MEDGEN ([facility]) Heart rate 80 /min 80 /min MEDGEN ([facility]) Respiratory rate 14 /min 14 /min MEDGEN ( [facility]) Body temperature 98.4 F 98.4 F MEDGEN ( [facility]) Inhaled oxygen 100 % 100 % MEDGEN ([facility]) Body mass index 22.4 kg/m2 22.4 kg/m2 MEDGEN (S t (BMI) [Ratio] [facility]) Diastolic blood 90 mm[Hg] 90 mm[Hg] MEDGEN (S t [facility]) Systolic blood 155 mm[Hg] 155 mm[Hg] MEDGEN ([facility]) Body weight 139 lb 139 lb MEDGEN ([facility]) Body height 66 in 66 in MEDGEN ([facility]) Heart rate 80 /min 80 /min MEDGEN ([facility]) Respiratory rate 14 /min 14 /min MEDGEN ( [facility]) Body temperature 98.4 F 98.4 F MEDGEN ( [facility]) Inhaled oxygen 100 % 100 % MEDGEN ([facility]) Body mass index 22.4 kg/m2 22.4 kg/m2 MEDGEN (S t (BMI) [Ratio] [facility]) Diastolic blood 90 mm[Hg] 90 mm[Hg] MEDGEN (S t [facility]) Systolic blood 155 mm[Hg] 155 mm[Hg] MEDGEN ([facility]) Body weight 139 lb 139 lb MEDGEN ([facility]) Body height 66 in 66 in MEDGEN ([facility]) Heart rate 80 /min 80 /min MEDGEN ([facility]) Respiratory rate 14 /min 14 /min MEDGEN ( [facility]) Body temperature 98.4 F 98.4 F MEDGEN ( [facility]) Inhaled oxygen 100 % 100 % MEDGEN ([facility]) Body mass index 22.4 kg/m2 22.4 kg/m2 MEDGEN (S t (BMI) [Ratio] [facility]) Diastolic blood 90 mm[Hg] 90 mm[Hg] MEDGEN (S [facility] [place] [place]) Systolic blood 155 mm[Hg] 155 mm[Hg] MEDGEN ([facility]) Body weight 139 lb 139 lb MEDGEN ([facility]) Body height 66 in 66 in MEDGEN ([facility]) Heart rate 80 /min 80 /min MEDGEN ([facility]) Respiratory rate 14 /min 14 /min MEDGEN ( [facility]) Body temperature 98.4 F 98.4 F MEDGEN ( [facility]) Inhaled oxygen 100 % 100 % MEDGEN ([facility]) Body mass index 22.4 kg/m2 22.4 kg/m2 MEDGEN (S t (BMI) [Ratio] [facility] [place]) Diastolic blood 90 mm[Hg] 90 mm[Hg] MEDGEN (S t [facility]) Systolic blood 155 mm[Hg] 155 mm[Hg] MEDGEN ([facility]) Body weight 139 lb 139 lb [facility]GEN ([facility] [facility] [place] Body height 66 in 66 in MEDGEN ([facility] [place]) Heart rate 80 /min 80 /min MEDGEN ([facility] [place]) Respiratory rate 14 /min 14 /min MEDGEN ( [facility] [place]) Body temperature 98.4 F 98.4 F MEDGEN ( [facility] [place]) Inhaled oxygen 100 % 100 % MEDGEN ([facility], ) Body mass index 22.4 kg/m2 22.4 kg/m2 MEDGEN (S t (BMI) [Ratio] [facility], ) Diastolic blood 90 mm[Hg] 90 mm[Hg] MEDGEN (S [facility] [place]) Systolic blood 155 mm[Hg] 155 mm[Hg] MEDGEN ([facility]) Body weight 139 lb 139 lb MEDGEN ([facility] [place]) Body height 66 in 66 in MEDGEN ([facility] [place]) Heart rate 80 /min 80 /min MEDGEN ([facility] [place]) Respiratory rate 14 /min 14 /min MEDGEN ( [facility] [place]) Body temperature 98.4 F 98.4 F MEDGEN ( [facility] [place]) Inhaled oxygen 100 % 100 % MEDGEN ([facility], ) Body mass index 22.4 kg/m2 22.4 kg/m2 MEDGEN (S t (BMI) [Ratio] [facility], ) Diastolic blood 90 mm[Hg] 90 mm[Hg] MEDGEN (S t [facility]) Systolic blood 155 mm[Hg] 155 mm[Hg] MEDGEN ([facility]) Body weight 139 lb 139 lb MEDGEN ([facility] [place]) Body height 66 in 66 in MEDGEN ([facility] [place]) Heart rate 80 /min 80 /min MEDGEN ([facility] [place]) Respiratory rate 14 /min 14 /min MEDGEN ( [facility] [place]) Body temperature 98.4 F 98.4 F MEDGEN ( [facility] [place]) Inhaled oxygen 100 % 100 % MEDGEN ([facility], ) Body mass index 22.4 kg/m2 22.4 kg/m2 MEDGEN (S t (BMI) [Ratio] [facility], ) Diastolic blood 90 mm[Hg] 90 mm[Hg] MEDGEN (S t [facility]) Systolic blood 155 mm[Hg] 155 mm[Hg] MEDGEN ([facility]) Body weight 139 lb 139 lb MEDGEN ([facility] [place]) Body height 66 in 66 in MEDGEN ([facility] [place]) Heart rate 80 /min 80 /min MEDGEN ([facility] [place]) Respiratory rate 14 /min 14 /min MEDGEN ( [facility] [place]) Body temperature 98.4 F 98.4 F MEDGEN ( [facility] [place]) Inhaled oxygen 100 % 100 % MEDGEN ([facility]) Body mass index 22.4 kg/m2 22.4 kg/m2 MEDGEN (S t (BMI) [Ratio] [facility], ) Diastolic blood 90 mm[Hg] 90 mm[Hg] MEDGEN (S t [facility] [place]) Systolic blood 155 mm[Hg] 155 mm[Hg] MEDGEN ([facility]) Body weight 139 lb 139 lb MEDGEN ([facility] [place]) Body height 66 in 66 in MEDGEN ([facility] [place]) Heart rate 80 /min 80 /min MEDGEN ([facility] [place]) Respiratory rate 14 /min 14 /min MEDGEN ( [facility] [place]) Body temperature 98.4 F 98.4 F MEDGEN ( [facility] [place]) Inhaled oxygen 100 % 100 % MEDGEN ([facility], ) Body mass index 22.4 kg/m2 22.4 kg/m2 MEDGEN (S t (BMI) [Ratio] [facility], ) Diastolic blood 90 mm[Hg] 90 mm[Hg] MEDGEN (S t [facility]) Systolic blood 155 mm[Hg] 155 mm[Hg] MEDGEN ([facility]) Body weight 139 lb 139 lb MEDGEN ([facility] [place]) Body height 66 in 66 in MEDGEN ([facility] [place]) Heart rate 80 /min 80 /min MEDGEN ([facility] [place]) Respiratory rate 14 /min 14 /min MEDGEN ( [facility] [place]) Body temperature 98.4 F 98.4 F MEDGEN ( [facility] [place]) Inhaled oxygen 100 % 100 % MEDGEN ([facility], ) Body mass index 22.4 kg/m2 22.4 kg/m2 MEDGEN (S t (BMI) [Ratio] [facility], ) Diastolic blood 90 mm[Hg] 90 mm[Hg] MEDGEN ([facility] [place] [place]) Systolic blood 155 mm[Hg] 155 mm[Hg] MEDGEN ([facility]) Body weight 139 lb 139 lb MEDGEN ([facility] [place]) Body height 66 in 66 in MEDGEN ([facility] [place]) Heart rate 85 /min 85 /min MEDGEN ([facility] [place]) Respiratory rate 14 /min 14 /min MEDGEN ( [facility] [place]) Body temperature 98.1 F 98.1 F MEDGEN ( [facility] [place]) Inhaled oxygen 99 % 99 % MEDGEN ([facility]) Body mass index 24.5 kg/m2 24.5 kg/m2 MEDGEN (S t (BMI) [Ratio] [facility], ) Diastolic blood 91 mm[Hg] 91 mm[Hg] MEDGEN ([facility] [place] [place]) Systolic blood 135 mm[Hg] 135 mm[Hg] MEDGEN ([facility]) Body weight 152 lb 152 lb MEDGEN ([facility] [place]) Body height 66 in 66 in MEDGEN ([facility] [place]) Heart rate 85 /min 85 /min MEDGEN ([facility] [place]) Respiratory rate 14 /min 14 /min MEDGEN ( [facility] [place]) Body temperature 98.1 F 98.1 F MEDGEN ( [facility] [place]) Inhaled oxygen 99 % 99 % MEDGEN ([facility], ) Body mass index 24.5 kg/m2 24.5 kg/m2 MEDGEN (S t (BMI) [Ratio] [facility], ) Diastolic blood 91 mm[Hg] 91 mm[Hg] MEDGEN (S t [facility]) Systolic blood 135 mm[Hg] 135 mm[Hg] MEDGEN ([facility]) Body weight 152 lb 152 lb MEDGEN ([facility] [place]) Body height 66 in 66 in MEDGEN ([facility] [place]) Heart rate 85 /min 85 /min MEDGEN ([facility] [place]) Respiratory rate 14 /min 14 /min MEDGEN ( [facility] [place]) Body temperature 98.1 F 98.1 F MEDGEN ( [facility] [place]) Inhaled oxygen 99 % 99 % MEDGEN ([facility], ) Body mass index 24.5 kg/m2 24.5 kg/m2 MEDGEN (S t (BMI) [Ratio] [facility], ) Diastolic blood 91 mm[Hg] 91 mm[Hg] MEDGEN (S t [facility]) Systolic blood 135 mm[Hg] 135 mm[Hg] MEDGEN ([facility]) Body weight 152 lb 152 lb MEDGEN ([facility] [place]) Body height 66 in 66 in MEDGEN ([facility] [place]) Heart rate 85 /min 85 /min MEDGEN ([facility] [place]) Respiratory rate 14 /min 14 /min MEDGEN ( [facility] [place]) Body temperature 98.1 F 98.1 F MEDGEN ( [facility] [place]) Inhaled oxygen 99 % 99 % MEDGEN ([facility], ) Body mass index 24.5 kg/m2 24.5 kg/m2 MEDGEN (S t (BMI) [Ratio] [facility], ) Diastolic blood 91 mm[Hg] 91 mm[Hg] MEDGEN (S t [facility]) Systolic blood 135 mm[Hg] 135 mm[Hg] MEDGEN ([facility] , ) Body weight 152 lb 152 lb MEDGEN ([facility] [place]) Body height 66 in 66 in MEDGEN ([facility] [place]) Heart rate 85 /min 85 /min MEDGEN ([facility] [place]) Respiratory rate 14 /min 14 /min MEDGEN ( [facility] [place]) Body temperature 98.1 F 98.1 F MEDGEN ( [facility] [place]) Inhaled oxygen 99 % 99 % MEDGEN ([facility], ) Body mass index 24.5 kg/m2 24.5 kg/m2 MEDGEN (S t (BMI) [Ratio] [facility], ) Diastolic blood 91 mm[Hg] 91 mm[Hg] MEDGEN (S t [facility] [place]) Systolic blood 135 mm[Hg] 135 mm[Hg] MEDGEN ([facility]) Body weight 152 lb 152 lb MEDGEN ([facility] [place]) Body height 66 in 66 in MEDGEN ([facility] [place]) Body mass index 24.5 kg/m2 24.5 kg/m2 MEDGEN (S t (BMI) [Ratio] [facility]) Diastolic blood 91 mm[Hg] 91 mm[Hg] MEDGEN (S t [facility] [place]) Systolic blood 135 mm[Hg] 135 mm[Hg] MEDGEN ([facility]) Body weight 152 lb 152 lb MEDGEN ([facility] [place]) Body height 66 in 66 in MEDGEN ([facility] [place]) Heart rate 85 /min 85 /min MEDGEN ([facility] [place]) Respiratory rate 14 /min 14 /min MEDGEN ( [facility] [place]) Body temperature 98.1 F 98.1 F MEDGEN ( [facility] [place]) Inhaled oxygen 99 % 99 % MEDGEN ([facility]) Heart rate 85 /min 85 /min MEDGEN ([facility] [place]) Respiratory rate 14 /min 14 /min MEDGEN ( [facility] [place]) Body temperature 98.1 F 98.1 F MEDGEN ( [facility] [place]) Inhaled oxygen 99 % 99 % MEDGEN ([facility]) Body mass index 24.5 kg/m2 24.5 kg/m2 MEDGEN (S t (BMI) [Ratio] [facility], ) Diastolic blood 91 mm[Hg] 91 mm[Hg] MEDGEN (S t [facility] [place]) Systolic blood 135 mm[Hg] 135 mm[Hg] MEDGEN ([facility]) Body weight 152 lb 152 lb MEDGEN ([facility] [place]) Body height 66 in 66 in MEDGEN ([facility] [place]) Inhaled oxygen 99 % 99 % MEDGEN ([facility]) Body mass index 24.5 kg/m2 24.5 kg/m2 MEDGEN (S t (BMI) [Ratio] [facility], ) Diastolic blood 91 mm[Hg] 91 mm[Hg] MEDGEN (S t [facility] [place]) Systolic blood 135 mm[Hg] 135 mm[Hg] MEDGEN ([facility]) Body weight 152 lb 152 lb MEDGEN ([facility] [place]) Body height 66 in 66 in MEDGEN ([facility] [place]) Heart rate 85 /min 85 /min MEDGEN ([facility] [place]) Respiratory rate 14 /min 14 /min MEDGEN ( [facility] [place]) Body temperature 98.1 F 98.1 F MEDGEN ( [facility] [place]) Heart rate 85 /min 85 /min MEDGEN ([facility] [place]) Respiratory rate 14 /min 14 /min MEDGEN ( [facility] [place]) Body temperature 98.1 F 98.1 F MEDGEN ( [facility] [place]) Inhaled oxygen 99 % 99 % MEDGEN ([facility], ) Body mass index 24.5 kg/m2 24.5 kg/m2 MEDGEN (S t (BMI) [Ratio] [facility], ) Diastolic blood 91 mm[Hg] 91 mm[Hg] MEDGEN (S t [facility]) Systolic blood 135 mm[Hg] 135 mm[Hg] MEDGEN ([facility]) Body weight 152 lb 152 lb MEDGEN ([facility] [place]) Body height 66 in 66 in MEDGEN ([facility] [place]) Heart rate 85 /min 85 /min MEDGEN ([facility] [place]) Respiratory rate 14 /min 14 /min MEDGEN ( [facility] [place]) Body temperature 98.1 F 98.1 F MEDGEN ( [facility] [place]) Inhaled oxygen 99 % 99 % MEDGEN ([facility]) Body mass index 24.5 kg/m2 24.5 kg/m2 MEDGEN (S t (BMI) [Ratio] [facility] [place]) Diastolic blood 91 mm[Hg] 91 mm[Hg] MEDGEN (S t [facility] [place]) Systolic blood 135 mm[Hg] 135 mm[Hg] MEDGEN ([facility]) Body weight 152 lb 152 lb MEDGEN ([facility] [place]) Body height 66 in 66 in MEDGEN ([facility] [place]) Heart rate 85 /min 85 /min MEDGEN ([facility] [place]) Respiratory rate 14 /min 14 /min MEDGEN ( [facility] [place]) Heart rate 85 /min 85 /min MEDGEN ([facility] [place]) Respiratory rate 14 /min 14 /min MEDGEN ( [facility] [place]) Body temperature 98.1 F 98.1 F MEDGEN ( [facility] [place]) Inhaled oxygen 99 % 99 % MEDGEN ([facility]) Body mass index 24.5 kg/m2 24.5 kg/m2 MEDGEN (S t (BMI) [Ratio] [facility] [place]) Diastolic blood 91 mm[Hg] 91 mm[Hg] MEDGEN (S [facility] [place] [place]) Systolic blood 135 mm[Hg] 135 mm[Hg] MEDGEN ([facility]) Body weight 152 lb 152 lb MEDGEN ([facility] [place]) Body height 66 in 66 in MEDGEN ([facility] [place]) Body temperature 98.1 F 98.1 F MEDGEN ( [facility] [place]) Inhaled oxygen 99 % 99 % MEDGEN ([facility]) Body mass index 24.5 kg/m2 24.5 kg/m2 MEDGEN (S t (BMI) [Ratio] [facility] [place]) Diastolic blood 91 mm[Hg] 91 mm[Hg] MEDGEN (S t [facility] [place]) Systolic blood 135 mm[Hg] 135 mm[Hg] MEDGEN ([facility]) Body weight 152 lb 152 lb MEDGEN ([facility] [place]) Body height 66 in 66 in MEDGEN ([facility] [place]) Heart rate 85 /min 85 /min MEDGEN ([facility] [place]) Respiratory rate 14 /min 14 /min MEDGEN ( [facility] [place]) Body temperature 98.1 F 98.1 F MEDGEN ( [facility] [place]) Inhaled oxygen 99 % 99 % MEDGEN ([facility], ) Body mass index 24.5 kg/m2 24.5 kg/m2 MEDGEN (S t (BMI) [Ratio] [facility], ) Diastolic blood 91 mm[Hg] 91 mm[Hg] MEDGEN ([facility] [place] [place]) Systolic blood 135 mm[Hg] 135 mm[Hg] MEDGEN ([facility]) Body weight 152 lb 152 lb MEDGEN ([facility] [place]) Body height 66 in 66 in MEDGEN ([facility] [place]) Heart rate 85 /min 85 /min MEDGEN ([facility] [place]) Respiratory rate 14 /min 14 /min MEDGEN ( [facility] [place]) Body temperature 98.1 F 98.1 F MEDGEN ( [facility] [place]) Inhaled oxygen 99 % 99 % MEDGEN ([facility], ) Body mass index 24.5 kg/m2 24.5 kg/m2 MEDGEN (S t (BMI) [Ratio] [facility], ) Diastolic blood 91 mm[Hg] 91 mm[Hg] MEDGEN (S [facility] [place]) Systolic blood 135 mm[Hg] 135 mm[Hg] MEDGEN ([facility] [place]) Body weight 152 lb 152 lb MEDGEN ([facility] [place]) Body height 66 in 66 in MEDGEN ([facility] [place]) Heart rate 85 /min 85 /min MEDGEN ([facility] [place]) Respiratory rate 14 /min 14 /min MEDGEN ( [facility] [place]) Body temperature 98.1 F 98.1 F MEDGEN ( [facility] [place]) Inhaled oxygen 99 % 99 % MEDGEN ([facility], ) Body mass index 24.5 kg/m2 24.5 kg/m2 MEDGEN (S t (BMI) [Ratio] [facility], ) Diastolic blood 91 mm[Hg] 91 mm[Hg] MEDGEN (S [facility] [place]) Systolic blood 135 mm[Hg] 135 mm[Hg] MEDGEN ([facility]) Body weight 152 lb 152 lb MEDGEN ([facility] [place]) Body height 66 in 66 in MEDGEN ([facility] [place]) Heart rate 92 /min 92 /min MEDGEN ([facility] [place]) Respiratory rate 14 /min 14 /min MEDGEN ( [facility] [place]) Body temperature 98 F 98 F MEDGEN ( [facility] [place]) Inhaled oxygen 100 % 100 % MEDGEN ([facility]) Body mass index 24.5 kg/m2 24.5 kg/m2 MEDGEN (S t (BMI) [Ratio] [facility], ) Diastolic blood 107 mm[Hg] 107 mm[Hg] MEDGEN (S [facility] [place]) Systolic blood 169 mm[Hg] 169 mm[Hg] MEDGEN ([facility]) Body weight 152 lb 152 lb MEDGEN ([facility] [place]) Body height 66 in 66 in MEDGEN ([facility] [place]) Heart rate 92 /min 92 /min MEDGEN ([facility] [place]) Respiratory rate 14 /min 14 /min MEDGEN ( [facility] [place]) Body temperature 98 F 98 F MEDGEN ( [facility] [place]) Inhaled oxygen 100 % 100 % MEDGEN ([facility]) Body mass index 24.5 kg/m2 24.5 kg/m2 MEDGEN (S t (BMI) [Ratio] [facility], ) Diastolic blood 107 mm[Hg] 107 mm[Hg] MEDGEN (S [facility] [place]) Systolic blood 169 mm[Hg] 169 mm[Hg] MEDGEN ([facility]) Body weight 152 lb 152 lb MEDGEN ([facility] [place]) Body height 66 in 66 in MEDGEN ([facility] [place]) Heart rate 92 /min 92 /min MEDGEN ([facility] [place]) Respiratory rate 14 /min 14 /min MEDGEN ( [facility] [place]) Body temperature 98 F 98 F MEDGEN ( [facility] [place]) Inhaled oxygen 100 % 100 % MEDGEN ([facility], ) Body mass index 24.5 kg/m2 24.5 kg/m2 MEDGEN (S t (BMI) [Ratio] [facility], ) Diastolic blood 107 mm[Hg] 107 mm[Hg] MEDGEN (S [facility] [place]) Systolic blood 169 mm[Hg] 169 mm[Hg] MEDGEN ([facility]) Body weight 152 lb 152 lb MEDGEN ([facility] [place]) Body height 66 in 66 in MEDGEN ([facility] [place]) Heart rate 92 /min 92 /min MEDGEN ([facility] [place] , ) Respiratory rate 14 /min 14 /min MEDGEN ( [facility] [place]) Body temperature 98 F 98 F MEDGEN ( [facility] [place]) Inhaled oxygen 100 % 100 % MEDGEN ([facility], ) Body mass index 24.5 kg/m2 24.5 kg/m2 MEDGEN (S t (BMI) [Ratio] [facility], ) Diastolic blood 107 mm[Hg] 107 mm[Hg] MEDGEN (S t pressure [facility] [place] , ) Systolic blood 169 mm[Hg] 169 mm[Hg] MEDGEN ([facility] [place] , ) Body weight 152 lb 152 lb MEDGEN ([facility] [place]) Body height 66 in 66 in MEDGEN ([facility] [place]) Heart rate 92 /min 92 /min MEDGEN ([facility] [place]) Respiratory rate 14 /min 14 /min MEDGEN ( [facility] [place]) Body temperature 98 F 98 F MEDGEN ( [facility] [place]) Inhaled oxygen 100 % 100 % MEDGEN ([facility], ) Body mass index 24.5 kg/m2 24.5 kg/m2 MEDGEN ([facility] t [facility] Diastolic blood 107 mm[Hg] 107 mm[Hg] MEDGEN (S t [facility] [place]) Systolic blood 169 mm[Hg] 169 mm[Hg] MEDGEN ([facility]) Body weight 152 lb 152 lb MEDGEN ([facility] [place]) Body height 66 in 66 in MEDGEN ([facility] [place]) Heart rate 92 /min 92 /min MEDGEN ([facility] [place]) Respiratory rate 14 /min 14 /min MEDGEN ( [facility] [place]) Body temperature 98 F 98 F MEDGEN ( [facility] [place]) Inhaled oxygen 100 % 100 % MEDGEN ([facility]) Body mass index 24.5 kg/m2 24.5 kg/m2 MEDGEN (S t (BMI) [Ratio] [facility], ) Diastolic blood 107 mm[Hg] 107 mm[Hg] MEDGEN (S t [facility] [place]) Systolic blood 169 mm[Hg] 169 mm[Hg] MEDGEN ([facility]) Body weight 152 lb 152 lb MEDGEN ([facility] [place]) Body height 66 in 66 in MEDGEN ([facility] [place]) Heart rate 92 /min 92 /min MEDGEN ([facility] [place]) Respiratory rate 14 /min 14 /min MEDGEN ( [facility] [place]) Body temperature 98 F 98 F MEDGEN ( [facility] [place]) Inhaled oxygen 100 % 100 % MEDGEN ([facility]) Body mass index 24.5 kg/m2 24.5 kg/m2 MEDGEN (S t (BMI) [Ratio] [facility], ) Diastolic blood 107 mm[Hg] 107 mm[Hg] MEDGEN (S [facility] [place]) Systolic blood 169 mm[Hg] 169 mm[Hg] MEDGEN ([facility]) Body weight 152 lb 152 lb MEDGEN ([facility] [place]) Body height 66 in 66 in MEDGEN ([facility] [place]) Heart rate 92 /min 92 /min MEDGEN ([facility] [place]) Respiratory rate 14 /min 14 /min MEDGEN ( [facility] [place]) Body temperature 98 F 98 F MEDGEN ( [facility] [place]) Inhaled oxygen 100 % 100 % MEDGEN ([facility], ) Body mass index 24.5 kg/m2 24.5 kg/m2 MEDGEN (S t (BMI) [Ratio] [facility], ) Diastolic blood 107 mm[Hg] 107 mm[Hg] MEDGEN (S t pressure [facility] [place] , ) Systolic blood 169 mm[Hg] 169 mm[Hg] MEDGEN ([facility]) Body weight 152 lb 152 lb MEDGEN ([facility] [place]) Body height 66 in 66 in MEDGEN ([facility] [place]) Heart rate 92 /min 92 /min MEDGEN ([facility] [place]) Respiratory rate 14 /min 14 /min MEDGEN ( [facility] [place]) Body temperature 98 F 98 F MEDGEN ( [facility] [place]) Inhaled oxygen 100 % 100 % MEDGEN ([facility], ) Body mass index 24.5 kg/m2 24.5 kg/m2 MEDGEN (S t (BMI) [Ratio] [facility], ) Diastolic blood 107 mm[Hg] 107 mm[Hg] MEDGEN (S t pressure [facility] [place] , ) Systolic blood 169 mm[Hg] 169 mm[Hg] MEDGEN ([facility]) Body weight 152 lb 152 lb MEDGEN ([facility] [place]) Body height 66 in 66 in MEDGEN ([facility] [place]) Heart rate 92 /min 92 /min MEDGEN ([facility] [place]) Respiratory rate 14 /min 14 /min MEDGEN ( [facility] [place]) Body temperature 98 F 98 F MEDGEN ( [facility] [place]) Inhaled oxygen 100 % 100 % MEDGEN ([facility], ) Body mass index 24.5 kg/m2 24.5 kg/m2 MEDGEN (S t (BMI) [Ratio] [facility], ) Diastolic blood 107 mm[Hg] 107 mm[Hg] MEDGEN (S t pressure [facility] , ) Systolic blood 169 mm[Hg] 169 mm[Hg] MEDGEN ([facility]) Body weight 152 lb 152 lb MEDGEN ([facility]) Body height 66 in 66 in MEDGEN ([facility]) Heart rate 92 /min 92 /min MEDGEN ([facility]) Respiratory rate 14 /min 14 /min MEDGEN ( [facility]) Body temperature 98 F 98 F MEDGEN ( [facility]) Inhaled oxygen 100 % 100 % MEDGEN ([facility], ) Body mass index 24.5 kg/m2 24.5 kg/m2 MEDGEN (S t (BMI) [Ratio] [facility], ) Diastolic blood 107 mm[Hg] 107 mm[Hg] MEDGEN (S t [facility]) Systolic blood 169 mm[Hg] 169 mm[Hg] MEDGEN ([facility]) Body weight 152 lb 152 lb MEDGEN ([facility]) Body height 66 in 66 in MEDGEN ([facility]) Heart rate 92 /min 92 /min MEDGEN ([facility]) Respiratory rate 14 /min 14 /min MEDGEN ( [facility]) Body temperature 98 F 98 F MEDGEN ( [facility]) Inhaled oxygen 100 % 100 % MEDGEN ([facility], ) Body mass index 24.5 kg/m2 24.5 kg/m2 MEDGEN (S t (BMI) [Ratio] [facility], ) Diastolic blood 107 mm[Hg] 107 mm[Hg] MEDGEN (S t pressure [facility]) Systolic blood 169 mm[Hg] 169 mm[Hg] MEDGEN ([facility]) Body weight 152 lb 152 lb MEDGEN ([facility]) Body height 66 in 66 in MEDGEN ([facility]) Heart rate 92 /min 92 /min MEDGEN ([facility]) Respiratory rate 14 /min 14 /min MEDGEN ( [facility]) Body temperature 98 F 98 F MEDGEN ( [facility]) Inhaled oxygen 100 % 100 % MEDGEN ([facility]) Body mass index 24.5 kg/m2 24.5 kg/m2 MEDGEN (S t (BMI) [Ratio] [facility], ) Diastolic blood 107 mm[Hg] 107 mm[Hg] MEDGEN (S t pressure [facility]) Systolic blood 169 mm[Hg] 169 mm[Hg] MEDGEN ([facility]) Body weight 152 lb 152 lb MEDGEN ([facility]) Body height 66 in 66 in MEDGEN ([facility]) Heart rate 92 /min 92 /min MEDGEN ([facility]) Respiratory rate 14 /min 14 /min MEDGEN ( [facility]) Body temperature 98 F 98 F MEDGEN ( [facility]) Inhaled oxygen 100 % 100 % MEDGEN ([facility], ) Body mass index 24.5 kg/m2 24.5 kg/m2 MEDGEN (S t (BMI) [Ratio] [facility], ) Diastolic blood 107 mm[Hg] 107 mm[Hg] MEDGEN (S t pressure [facility] , ) Systolic blood 169 mm[Hg] 169 mm[Hg] MEDGEN ([facility]) Body weight 152 lb 152 lb MEDGEN ([facility]) Body height 66 in 66 in MEDGEN ([facility]) Heart rate 92 /min 92 /min MEDGEN ([facility]) Respiratory rate 14 /min 14 /min MEDGEN ( [facility]) Body temperature 98 F 98 F MEDGEN ( [facility]) Inhaled oxygen 100 % 100 % MEDGEN ([facility], ) Body mass index 24.5 kg/m2 24.5 kg/m2 MEDGEN (S t (BMI) [Ratio] [facility], ) Diastolic blood 107 mm[Hg] 107 mm[Hg] MEDGEN (S t pressure [facility] , ) Systolic blood 169 mm[Hg] 169 mm[Hg] MEDGEN ([facility]) Body weight 152 lb 152 lb MEDGEN ([facility]) Body height 66 in 66 in MEDGEN ([facility]) Heart rate 72 /min 72 /min MEDGEN ([facility]) Respiratory rate 14 /min 14 /min MEDGEN ( [facility]) Inhaled oxygen 99 % 99 % MEDGEN ([facility], ) Body mass index 24.5 kg/m2 24.5 kg/m2 MEDGEN (S t (BMI) [Ratio] [facility], ) Diastolic blood 70 mm[Hg] 70 mm[Hg] MEDGEN (S t pressure [facility]) Systolic blood 102 mm[Hg] 102 mm[Hg] MEDGEN ([facility]) Body weight 152 lb 152 lb MEDGEN ([facility]) Body height 66 in 66 in MEDGEN ([facility]) Heart rate 72 /min 72 /min MEDGEN ([facility]) Respiratory rate 14 /min 14 /min MEDGEN ( [facility]) Inhaled oxygen 99 % 99 % MEDGEN ([facility], ) Body mass index 24.5 kg/m2 24.5 kg/m2 MEDGEN (S t (BMI) [Ratio] [facility], ) Diastolic blood 70 mm[Hg] 70 mm[Hg] MEDGEN (S t pressure [facility]) Systolic blood 102 mm[Hg] 102 mm[Hg] MEDGEN ([facility]) Body weight 152 lb 152 lb MEDGEN ([facility]) Body height 66 in 66 in MEDGEN ([facility]) Heart rate 72 /min 72 /min MEDGEN ([facility]) Respiratory rate 14 /min 14 /min MEDGEN ( [facility]) Inhaled oxygen 99 % 99 % MEDGEN ([facility], ) Body mass index 24.5 kg/m2 24.5 kg/m2 MEDGEN (S t (BMI) [Ratio] [facility], ) Diastolic blood 70 mm[Hg] 70 mm[Hg] MEDGEN (S t pressure [facility] , ) Systolic blood 102 mm[Hg] 102 mm[Hg] MEDGEN ([facility]) Body weight 152 lb 152 lb MEDGEN ([facility]) Body height 66 in 66 in MEDGEN ([facility]) Heart rate 72 /min 72 /min MEDGEN ([facility]) Respiratory rate 14 /min 14 /min MEDGEN ( [facility]) Inhaled oxygen 99 % 99 % MEDGEN ([facility], ) Body mass index 24.5 kg/m2 24.5 kg/m2 MEDGEN (S t (BMI) [Ratio] [facility], ) Diastolic blood 70 mm[Hg] 70 mm[Hg] MEDGEN (S t pressure [facility]) Systolic blood 102 mm[Hg] 102 mm[Hg] MEDGEN ([facility]) Body weight 152 lb 152 lb MEDGEN ([facility]) Body height 66 in 66 in MEDGEN ([facility]) Heart rate 72 /min 72 /min MEDGEN ([facility]) Respiratory rate 14 /min 14 /min MEDGEN ( [facility]) Inhaled oxygen 99 % 99 % MEDGEN ([facility], ) Body mass index 24.5 kg/m2 24.5 kg/m2 MEDGEN (S t (BMI) [Ratio] [facility], ) Diastolic blood 70 mm[Hg] 70 mm[Hg] MEDGEN (S t pressure [facility] , ) Systolic blood 102 mm[Hg] 102 mm[Hg] MEDGEN ([facility]) Body weight 152 lb 152 lb MEDGEN ([facility]) Body height 66 in 66 in MEDGEN ([facility]) Heart rate 72 /min 72 /min MEDGEN ([facility]) Respiratory rate 14 /min 14 /min MEDGEN ( [facility]) Inhaled oxygen 99 % 99 % MEDGEN ([facility], ) Body mass index 24.5 kg/m2 24.5 kg/m2 MEDGEN (S t (BMI) [Ratio] [facility], ) Diastolic blood 70 mm[Hg] 70 mm[Hg] MEDGEN (S t pressure [facility] , ) Systolic blood 102 mm[Hg] 102 mm[Hg] MEDGEN ([facility]) Body weight 152 lb 152 lb MEDGEN ([facility]) Body height 66 in 66 in MEDGEN ([facility]) Heart rate 72 /min 72 /min MEDGEN ([facility]) Respiratory rate 14 /min 14 /min MEDGEN ( [facility]) Inhaled oxygen 99 % 99 % MEDGEN ([facility], ) Body mass index 24.5 kg/m2 24.5 kg/m2 MEDGEN (S t (BMI) [Ratio] [facility], ) Diastolic blood 70 mm[Hg] 70 mm[Hg] MEDGEN (S t pressure [facility]) Systolic blood 102 mm[Hg] 102 mm[Hg] MEDGEN ([facility]) Body weight 152 lb 152 lb MEDGEN ([facility]) Body height 66 in 66 in MEDGEN ([facility]) Heart rate 72 /min 72 /min MEDGEN ([facility]) Respiratory rate 14 /min 14 /min MEDGEN ( [facility]) Inhaled oxygen 99 % 99 % MEDGEN ([facility]) Body mass index 24.5 kg/m2 24.5 kg/m2 MEDGEN (S t (BMI) [Ratio] [facility], ) Diastolic blood 70 mm[Hg] 70 mm[Hg] MEDGEN (S t pressure [facility]) Systolic blood 102 mm[Hg] 102 mm[Hg] MEDGEN ([facility]) Body weight 152 lb 152 lb MEDGEN ([facility]) Body height 66 in 66 in MEDGEN ([facility]) Heart rate 72 /min 72 /min MEDGEN ([facility]) Respiratory rate 14 /min 14 /min MEDGEN ( [facility]) Inhaled oxygen 99 % 99 % MEDGEN ([facility], ) Body mass index 24.5 kg/m2 24.5 kg/m2 MEDGEN (S t (BMI) [Ratio] [facility], ) Diastolic blood 70 mm[Hg] 70 mm[Hg] MEDGEN (S t pressure [facility]) Systolic blood 102 mm[Hg] 102 mm[Hg] MEDGEN ([facility]) Body weight 152 lb 152 lb MEDGEN ([facility]) Body height 66 in 66 in MEDGEN ([facility]) Systolic blood 102 mm[Hg] 102 mm[Hg] MEDGEN ([facility]) Body weight 152 lb 152 lb MEDGEN ([facility]) Body height 66 in 66 in MEDGEN ([facility]) Heart rate 72 /min 72 /min MEDGEN ([facility]) Respiratory rate 14 /min 14 /min MEDGEN ( [facility]) Inhaled oxygen 99 % 99 % MEDGEN ([facility]) Body mass index 24.5 kg/m2 24.5 kg/m2 MEDGEN (S t (BMI) [Ratio] [facility], ) Diastolic blood 70 mm[Hg] 70 mm[Hg] MEDGEN ([facility] [place] [place]) Heart rate 72 /min 72 /min MEDGEN ([facility]) Respiratory rate 14 /min 14 /min MEDGEN ( [facility]) Inhaled oxygen 99 % 99 % MEDGEN ([facility]) Body mass index 24.5 kg/m2 24.5 kg/m2 MEDGEN (S t (BMI) [Ratio] [facility], ) Diastolic blood 70 mm[Hg] 70 mm[Hg] MEDGEN (S [facility] [place] [place]) Systolic blood 102 mm[Hg] 102 mm[Hg] MEDGEN ([facility]) Body weight 152 lb 152 lb MEDGEN ([facility]) Body height 66 in 66 in MEDGEN ([facility]) Heart rate 72 /min 72 /min MEDGEN ([facility]) Respiratory rate 14 /min 14 /min MEDGEN ( [facility]) Inhaled oxygen 99 % 99 % MEDGEN ([facility]) Body mass index 24.5 kg/m2 24.5 kg/m2 MEDGEN (S t (BMI) [Ratio] [facility]) Diastolic blood 70 mm[Hg] 70 mm[Hg] MEDGEN (S t pressure [facility] , ) Systolic blood 102 mm[Hg] 102 mm[Hg] MEDGEN ([facility] , ) Body weight 152 lb 152 lb MEDGEN ([facility] , ) Body height 66 in 66 in MEDGEN ([facility]) Heart rate 72 /min 72 /min MEDGEN ([facility] , ) Respiratory rate 14 /min 14 /min MEDGEN ( [facility] , ) Inhaled oxygen 99 % 99 % MEDGEN ([facility], ) Body mass index 24.5 kg/m2 24.5 kg/m2 MEDGEN (S t (BMI) [Ratio] [facility], ) Diastolic blood 70 mm[Hg] 70 mm[Hg] MEDGEN (S t pressure [facility] , ) Systolic blood 102 mm[Hg] 102 mm[Hg] MEDGEN ([facility] , ) Body weight 152 lb 152 lb MEDGEN ([facility] , ) Body height 66 in 66 in MEDGEN ([facility] , ) Heart rate 72 /min 72 /min MEDGEN ([facility] , ) Respiratory rate 14 /min 14 /min MEDGEN ( [facility] , ) Inhaled oxygen 99 % 99 % MEDGEN ([facility], ) Body mass index 24.5 kg/m2 24.5 kg/m2 MEDGEN (S t (BMI) [Ratio] [facility], ) Diastolic blood 70 mm[Hg] 70 mm[Hg] MEDGEN (S t pressure [facility] , ) Systolic blood 102 mm[Hg] 102 mm[Hg] MEDGEN ([facility] , ) Body weight 152 lb 152 lb MEDGEN ([facility] , ) Body height 66 in 66 in MEDGEN ([facility]) Heart rate 72 /min 72 /min MEDGEN ([facility] , ) Respiratory rate 14 /min 14 /min MEDGEN ( [facility] , ) Inhaled oxygen 99 % 99 % MEDGEN ([facility], ) Body mass index 24.5 kg/m2 24.5 kg/m2 MEDGEN (S t (BMI) [Ratio] [facility], ) Diastolic blood 70 mm[Hg] 70 mm[Hg] MEDGEN (S t pressure [facility]) Systolic blood 102 mm[Hg] 102 mm[Hg] MEDGEN ([facility]) Body weight 152 lb 152 lb MEDGEN ([facility]) Body height 66 in 66 in MEDGEN ([facility]) Heart rate 88 /min 88 /min MEDGEN ([facility]) Respiratory rate 14 /min 14 /min MEDGEN ( [facility]) Body temperature 98.4 F 98.4 F MEDGEN ( [facility]) Inhaled oxygen 100 % 100 % MEDGEN ([facility], ) Body mass index 24.5 kg/m2 24.5 kg/m2 MEDGEN (S t (BMI) [Ratio] [facility], ) Diastolic blood 77 mm[Hg] 77 mm[Hg] MEDGEN (S t [facility]) Systolic blood 131 mm[Hg] 131 mm[Hg] MEDGEN ([facility]) Body weight 152 lb 152 lb MEDGEN ([facility]) Body height 66 in 66 in MEDGEN ([facility]) Heart rate 88 /min 88 /min MEDGEN ([facility]) Respiratory rate 14 /min 14 /min MEDGEN ( [facility]) Body temperature 98.4 F 98.4 F MEDGEN ( [facility]) Inhaled oxygen 100 % 100 % MEDGEN ([facility], ) Body mass index 24.5 kg/m2 24.5 kg/m2 MEDGEN (S t (BMI) [Ratio] [facility], ) Diastolic blood 77 mm[Hg] 77 mm[Hg] MEDGEN (S t pressure [facility]) Systolic blood 131 mm[Hg] 131 mm[Hg] MEDGEN ([facility]) Body weight 152 lb 152 lb MEDGEN ([facility]) Body height 66 in 66 in MEDGEN ([facility]) Heart rate 88 /min 88 /min MEDGEN ([facility]) Respiratory rate 14 /min 14 /min MEDGEN ( [facility]) Body temperature 98.4 F 98.4 F MEDGEN ( [facility]) Inhaled oxygen 100 % 100 % MEDGEN ([facility]) Body mass index 24.5 kg/m2 24.5 kg/m2 MEDGEN (S t (BMI) [Ratio] [facility], ) Diastolic blood 77 mm[Hg] 77 mm[Hg] MEDGEN (S t [facility]) Systolic blood 131 mm[Hg] 131 mm[Hg] MEDGEN ([facility]) Body weight 152 lb 152 lb MEDGEN ([facility]) Body height 66 in 66 in MEDGEN ([facility]) Heart rate 88 /min 88 /min MEDGEN ([facility]) Respiratory rate 14 /min 14 /min MEDGEN ( [facility]) Body temperature 98.4 F 98.4 F MEDGEN ( [facility]) Inhaled oxygen 100 % 100 % MEDGEN ([facility]) Body mass index 24.5 kg/m2 24.5 kg/m2 MEDGEN (S t (BMI) [Ratio] [facility]) Diastolic blood 77 mm[Hg] 77 mm[Hg] MEDGEN (S pressure [facility]) Systolic blood 131 mm[Hg] 131 mm[Hg] MEDGEN ([facility]) Body weight 152 lb 152 lb MEDGEN ([facility]) Body height 66 in 66 in MEDGEN ([facility]) Heart rate 88 /min 88 /min MEDGEN ([facility]) Respiratory rate 14 /min 14 /min MEDGEN ( [facility]) Body temperature 98.4 F 98.4 F MEDGEN ( [facility]) Inhaled oxygen 100 % 100 % MEDGEN ([facility]) Body mass index 24.5 kg/m2 24.5 kg/m2 MEDGEN (S t (BMI) [Ratio] [facility], ) Diastolic blood 77 mm[Hg] 77 mm[Hg] MEDGEN (S t pressure [facility] , ) Systolic blood 131 mm[Hg] 131 mm[Hg] MEDGEN ([facility]) Body weight 152 lb 152 lb MEDGEN ([facility]) Body height 66 in 66 in MEDGEN ([facility]) Heart rate 88 /min 88 /min MEDGEN ([facility]) Respiratory rate 14 /min 14 /min MEDGEN ( [facility]) Body temperature 98.4 F 98.4 F MEDGEN ( [facility]) Inhaled oxygen 100 % 100 % MEDGEN ([facility], ) Body mass index 24.5 kg/m2 24.5 kg/m2 MEDGEN (S t (BMI) [Ratio] [facility], ) Diastolic blood 77 mm[Hg] 77 mm[Hg] MEDGEN (S t pressure [facility] , ) Systolic blood 131 mm[Hg] 131 mm[Hg] MEDGEN ([facility]) Body weight 152 lb 152 lb MEDGEN ([facility]) Body height 66 in 66 in MEDGEN ([facility]) Heart rate 88 /min 88 /min MEDGEN ([facility]) Respiratory rate 14 /min 14 /min MEDGEN ( [facility] , ) Body temperature 98.4 F 98.4 F MEDGEN ( [facility]) Inhaled oxygen 100 % 100 % MEDGEN ([facility], ) Body mass index 24.5 kg/m2 24.5 kg/m2 MEDGEN (S t (BMI) [Ratio] [facility], ) Diastolic blood 77 mm[Hg] 77 mm[Hg] MEDGEN (S t pressure [facility] , ) Systolic blood 131 mm[Hg] 131 mm[Hg] MEDGEN ([facility] , ) Body weight 152 lb 152 lb MEDGEN ([facility]) Body height 66 in 66 in MEDGEN ([facility]) Heart rate 88 /min 88 /min MEDGEN ([facility]) Respiratory rate 14 /min 14 /min MEDGEN ( [facility]) Body temperature 98.4 F 98.4 F MEDGEN ( [facility]) Inhaled oxygen 100 % 100 % MEDGEN ([facility]) Body mass index 24.5 kg/m2 24.5 kg/m2 MEDGEN (S t (BMI) [Ratio] [facility]) Diastolic blood 77 mm[Hg] 77 mm[Hg] MEDGEN (S t [facility]) Systolic blood 131 mm[Hg] 131 mm[Hg] MEDGEN ([facility]) Body weight 152 lb 152 lb MEDGEN ([facility]) Body height 66 in 66 in MEDGEN ([facility]) Heart rate 88 /min 88 /min MEDGEN ([facility]) Respiratory rate 14 /min 14 /min MEDGEN ( [facility]) Body temperature 98.4 F 98.4 F MEDGEN ( [facility]) Inhaled oxygen 100 % 100 % MEDGEN ([facility]) Body mass index 24.5 kg/m2 24.5 kg/m2 MEDGEN (S t (BMI) [Ratio] [facility]) Diastolic blood 77 mm[Hg] 77 mm[Hg] MEDGEN (S t [facility]) Systolic blood 131 mm[Hg] 131 mm[Hg] MEDGEN ([facility]) Body weight 152 lb 152 lb MEDGEN ([facility]) Body height 66 in 66 in MEDGEN ([facility]) Heart rate 88 /min 88 /min MEDGEN ([facility]) Respiratory rate 14 /min 14 /min MEDGEN ( [facility]) Body temperature 98.4 F 98.4 F MEDGEN ( [facility]) Inhaled oxygen 100 % 100 % MEDGEN ([facility]) Body mass index 24.5 kg/m2 24.5 kg/m2 MEDGEN (S t (BMI) [Ratio] [facility], ) Diastolic blood 77 mm[Hg] 77 mm[Hg] MEDGEN (S t [facility]) Systolic blood 131 mm[Hg] 131 mm[Hg] MEDGEN ([facility] , ) Body weight 152 lb 152 lb MEDGEN ([facility]) Body height 66 in 66 in MEDGEN ([facility]) Heart rate 88 /min 88 /min MEDGEN ([facility]) Respiratory rate 14 /min 14 /min MEDGEN ( [facility]) Body temperature 98.4 F 98.4 F MEDGEN ( [facility]) Inhaled oxygen 100 % 100 % MEDGEN ([facility], ) Body mass index 24.5 kg/m2 24.5 kg/m2 MEDGEN (S t (BMI) [Ratio] [facility], ) Diastolic blood 77 mm[Hg] 77 mm[Hg] MEDGEN (S t [facility]) Systolic blood 131 mm[Hg] 131 mm[Hg] MEDGEN ([facility]) Body weight 152 lb 152 lb MEDGEN ([facility]) Body height 66 in 66 in MEDGEN ([facility]) Body height 66 in 66 in MEDGEN ([facility]) Heart rate 88 /min 88 /min MEDGEN ([facility]) Respiratory rate 14 /min 14 /min MEDGEN ( [facility]) Body temperature 98.4 F 98.4 F MEDGEN ( [facility]) Inhaled oxygen 100 % 100 % MEDGEN ([facility], ) Body mass index 24.5 kg/m2 24.5 kg/m2 MEDGEN (S t (BMI) [Ratio] [facility], ) Diastolic blood 77 mm[Hg] 77 mm[Hg] MEDGEN (S t pressure [facility]) Systolic blood 131 mm[Hg] 131 mm[Hg] MEDGEN ([facility]) Body weight 152 lb 152 lb MEDGEN ([facility]) Heart rate 88 /min 88 /min MEDGEN ([facility]) Respiratory rate 14 /min 14 /min MEDGEN ( [facility]) Body temperature 98.4 F 98.4 F MEDGEN ( [facility]) Inhaled oxygen 100 % 100 % MEDGEN ([facility], ) Body mass index 24.5 kg/m2 24.5 kg/m2 MEDGEN (S t (BMI) [Ratio] [facility], ) Diastolic blood 77 mm[Hg] 77 mm[Hg] MEDGEN (S t [facility] [place]) Systolic blood 131 mm[Hg] 131 mm[Hg] MEDGEN ([facility]) Body weight 152 lb 152 lb MEDGEN ([facility]) Body height 66 in 66 in MEDGEN ([facility]) Heart rate 88 /min 88 /min MEDGEN ([facility]) Respiratory rate 14 /min 14 /min MEDGEN ( [facility]) Body temperature 98.4 F 98.4 F MEDGEN ( [facility]) Inhaled oxygen 100 % 100 % MEDGEN ([facility], ) Body mass index 24.5 kg/m2 24.5 kg/m2 MEDGEN (S t (BMI) [Ratio] [facility], ) Diastolic blood 77 mm[Hg] 77 mm[Hg] MEDGEN (S [facility] [place] [place]) Systolic blood 131 mm[Hg] 131 mm[Hg] MEDGEN ([facility]) Body weight 152 lb 152 lb MEDGEN ([facility]) Body height 66 in 66 in MEDGEN ([facility]) Heart rate 88 /min 88 /min MEDGEN ([facility]) Respiratory rate 14 /min 14 /min MEDGEN ( [facility]) Body temperature 98.4 F 98.4 F MEDGEN ( [facility]) Inhaled oxygen 100 % 100 % MEDGEN ([facility], ) Body mass index 24.5 kg/m2 24.5 kg/m2 MEDGEN (S t (BMI) [Ratio] [facility], ) Diastolic blood 77 mm[Hg] 77 mm[Hg] MEDGEN (S t [facility] [place]) Systolic blood 131 mm[Hg] 131 mm[Hg] MEDGEN ([facility]) Body weight 152 lb 152 lb MEDGEN ([facility]) Body height 66 in 66 in [facility]) Body mass index 21.5 kg/m2 21.5 kg/m2 MEDGEN (S t (BMI) [Ratio] [facility], ) Diastolic blood 90 mm[Hg] 90 mm[Hg] MEDGEN (S t [facility] [place]) Systolic blood 142 mm[Hg] 142 mm[Hg] MEDGEN ([facility]) Body weight 133 lb 133 lb MEDGEN ([facility]) Body height 66 in 66 in [facility] ([facility]) Body mass index 21.5 kg/m2 21.5 kg/m2 MEDGEN (S t (BMI) [Ratio] [facility], ) Diastolic blood 90 mm[Hg] 90 mm[Hg] MEDGEN (S t [facility] [place]) Systolic blood 142 mm[Hg] 142 mm[Hg] MEDGEN ([facility]) Body weight 133 lb 133 lb MEDGEN ([facility]) Body height 66 in 66 in MEDGEN ([facility]) Body mass index 21.5 kg/m2 21.5 kg/m2 MEDGEN (S t (BMI) [Ratio] [facility] [place]) Diastolic blood 90 mm[Hg] 90 mm[Hg] MEDGEN (S [facility] [place] [place]) Systolic blood 142 mm[Hg] 142 mm[Hg] MEDGEN ([facility]) Body weight 133 lb 133 lb MEDGEN ([facility]) Body height 66 in 66 in MEDGEN ([facility]) Body mass index 21.5 kg/m2 21.5 kg/m2 MEDGEN (S t (BMI) [Ratio] [facility] [place]) Diastolic blood 90 mm[Hg] 90 mm[Hg] MEDGEN (S [facility]) Systolic blood 142 mm[Hg] 142 mm[Hg] MEDGEN ([facility]) Body weight 133 lb 133 lb MEDGEN ([facility]) Body height 66 in 66 in [facility] ([facility]) Body mass index 21.5 kg/m2 21.5 kg/m2 MEDGEN (S t (BMI) [Ratio] [facility], ) Diastolic blood 90 mm[Hg] 90 mm[Hg] MEDGEN (S t [facility]) Systolic blood 142 mm[Hg] 142 mm[Hg] MEDGEN ([facility] [place]) Body weight 133 lb 133 lb MEDGEN ([facility]) Body height 66 in 66 in [facility] ([facility]) Body mass index 21.5 kg/m2 21.5 kg/m2 MEDGEN (S t (BMI) [Ratio] [facility], ) Diastolic blood 90 mm[Hg] 90 mm[Hg] MEDGEN (S t [facility] [place]) Systolic blood 142 mm[Hg] 142 mm[Hg] MEDGEN ([facility]) Body weight 133 lb 133 lb MEDGEN ([facility]) Body height 66 in 66 in MEDGEN ([facility]) Body mass index 21.5 kg/m2 21.5 kg/m2 MEDGEN (S t (BMI) [Ratio] [facility], ) Diastolic blood 90 mm[Hg] 90 mm[Hg] MEDGEN (S t [facility] [place]) Systolic blood 142 mm[Hg] 142 mm[Hg] MEDGEN ([facility]) Body weight 133 lb 133 lb MEDGEN ([facility]) Body height 66 in 66 in MEDGEN ([facility]) Body mass index 21.5 kg/m2 21.5 kg/m2 MEDGEN (S t (BMI) [Ratio] [facility], ) Diastolic blood 90 mm[Hg] 90 mm[Hg] MEDGEN (S t [facility]) Systolic blood 142 mm[Hg] 142 mm[Hg] MEDGEN ([facility]) Body weight 133 lb 133 lb MEDGEN ([facility]) Body height 66 in 66 in MEDGEN ([facility]) Body mass index 21.5 kg/m2 21.5 kg/m2 MEDGEN (S t (BMI) [Ratio] [facility], ) Diastolic blood 90 mm[Hg] 90 mm[Hg] MEDGEN (S t pressure [facility] [place] , ) Systolic blood 142 mm[Hg] 142 mm[Hg] MEDGEN (St pressure [facility] [place] , ) Body weight 133 lb 133 lb MEDGEN ([facility] [place] , ) Body height 66 in 66 in [facility] ([facility]) Body mass index 21.5 kg/m2 21.5 kg/m2 MEDGEN (S t (BMI) [Ratio] [facility], ) Diastolic blood 90 mm[Hg] 90 mm[Hg] MEDGEN (S t pressure [facility] [place] , ) Systolic blood 142 mm[Hg] 142 mm[Hg] MEDGEN (St pressure [facility] [place] , ) Body weight 133 lb 133 lb MEDGEN ([facility]) Body height 66 in 66 in [facility] ([facility]) Body mass index 21.5 kg/m2 21.5 kg/m2 MEDGEN (S t (BMI) [Ratio] [facility], ) Diastolic blood 90 mm[Hg] 90 mm[Hg] MEDGEN (S t pressure [facility] [place] , ) Systolic blood 142 mm[Hg] 142 mm[Hg] MEDGEN ([facility] [place] , ) Body weight 133 lb 133 lb MEDGEN ([facility]) Body height 66 in 66 in MEDGEN ([facility]) Body mass index 21.5 kg/m2 21.5 kg/m2 MEDGEN (S t (BMI) [Ratio] [facility], ) Diastolic blood 90 mm[Hg] 90 mm[Hg] MEDGEN (S t pressure [facility] [place] , ) Systolic blood 142 mm[Hg] 142 mm[Hg] MEDGEN ([facility] [place] , ) Body weight 133 lb 133 lb MEDGEN ([facility]) Body height 66 in 66 in MEDGEN ([facility]) Body weight 133 lb 133 lb MEDGEN ([facility]) Body height 66 in 66 in MEDGEN ([facility]) Body mass index 21.5 kg/m2 21.5 kg/m2 MEDGEN ([facility] Diastolic blood 90 mm[Hg] 90 mm[Hg] MEDGEN (S t [facility] [place]) Systolic blood 142 mm[Hg] 142 mm[Hg] MEDGEN ([facility]) Body mass index 21.5 kg/m2 21.5 kg/m2 MEDGEN (S t (BMI) [Ratio] [facility] [place]) Diastolic blood 90 mm[Hg] 90 mm[Hg] MEDGEN (S t [facility] [place]) Systolic blood 142 mm[Hg] 142 mm[Hg] MEDGEN ([facility]) Body weight 133 lb 133 lb [facility] Body height 66 in 66 in [facility] ([facility]) Body mass index 21.5 kg/m2 21.5 kg/m2 MEDGEN (S t (BMI) [Ratio] [facility], ) Diastolic blood 90 mm[Hg] 90 mm[Hg] MEDGEN (S t [facility] [place]) Systolic blood 142 mm[Hg] 142 mm[Hg] MEDGEN ([facility]) Body weight 133 lb 133 lb [facility] Body height 66 in 66 in [facility] ([facility])
[2020-01-11] MEDS: HEPARIN NA (PORCINE) 5,000 UNITS/ML 1ML VIAL SQ SCH ×3 (02:07→17:46)
--- OUTSIDE RECORDS SUMMARY | 2020-01-11 02:35 | XMS ---
:1965 Author Organization [facility] Care Team Providers Name Role Phone RACHAEL BAH Unavailable Unavailable ED STAFF PHYSICIAN, STAFF Unavailable Unavailable Omi, Vián Unavailable Omi, Iván Unavailable Omi, Iván Unavailable Omi, Iván Unavailable Omi, Iván Unavailable Otto Garcia Unavailable [phone] Lemuel, Osama Unavailable Unavailable Lemuel, Osama Unavailable Unavailable Lemuel, Osama Unavailable Unavailable Lemuel, Osama Unavailable Unavailable Lemuel, Osama Unavailable Unavailable Lemuel, Osama Unavailable Unavailable Lemuel, Osama Unavailable Unavailable Lemuel, Osama Unavailable Unavailable Lemuel, Osama Unavailable Unavailable Lemuel, Osama Unavailable Unavailable Lemuel, Osama Unavailable Unavailable Lemuel, Osama Unavailable Unavailable Lemuel, Osama Unavailable Unavailable Lemuel, Osama Unavailable Unavailable Lemuel, Osama Unavailable Unavailable Rachael Pate Unavailable [phone] Rachael Pate Unavailable [phone] MD Alex Samayoa MD Unavailable MD Alex [...] is protected by Article 27-F of the [facility] Public Health law. If you continue you may haveaccess to information: Regarding HIV / AIDS; Provided by facilities licensed or operated by the [facility] Office of Mental Health; or Provided by the [facility] Office for People With Developmental Disabilities. If such information is present, then the following [facility] mandated warning applies: This information has been [...] law may result in a fine or care home sentence or both. A general authorization for the release of medical or other information is NOT sufficient authorization for further disclosure. Allergies and Adverse Reactions Type Description Substance Reaction Status Data Source(s ) Propensity to Propensity to Propensity to NEXTG EN ([facility] adverse reactions adverse reactions adverse reactions [facility] (disorder) (disorder) (disorder) Center) Encounters Encounter Providers [...] 11/25/2019 12:00:00 A M EDT [facility] ([facility]) Office Attender: MD Alex Samayoa [...] 11/25/2019 12:00:00 A M EDT [facility] ([facility] Office Attender: MD Alex Samayoa [...] Office Inpatient Attender: Gab[facility] [id number] - 11/05/2019 [...] [facility], ) Office Psychiatric Attender: [facility] 07/13/2018 [facility]EXTG EN [facility]45[facility] Medic al 04:18:00 PM EDT Center) Mental Health 07/09/2018 [facility]EXTGEN ( int Clinic 01:57:00 PM EDT [facility] 07/09/2018 Medical 01:57:00 PM EDT Center) Mental Health 06/27/2018 NEXTGEN ( int Clinic 11:59:00 AM EST [facility] 06/27/2018 Medical 11:59:00 AM EST Center) Outpatient Attender: RACHAEL Almaguer 06/27/2018 [facility] [place] [facility] 10:05:00 AM [facility] Ariannaitter: RACHAEL ESTRADA Attender: Rachael 06/27/2018 [facility]00 AM [facility] 06/27/2018 Medical 10:05:00 AM EST Center) 06/27/2018 [facility] 12:00:00 AM EST Medical C enter Emergency H 06/15/2018 [facility] 04:59:00 PM EST Medical C enter Medications Medication Brand Start Product Dose Route Administrative Pharmacy [facility] Indications Reaction Description Data Name Date Form Instructions Instructions Source(s) Labetalol LABETA 12/10/ TABLET 180 complet LABETA LOL [facility] (St hydrochlori LOL:2019 ed [facility] de 200 MG 6762 12:00: Medical, Oral Tablet 00 AM PC) LABETALOL:8 EDT 53362 Spironolact SPIRON 12/10/ TABLET 90 complet SPIR ONOLACTO [facility] (St one 25 MG OLACTO 2019 ed NE [facility] Oral Tablet NE:313 12:00: Medi vasile, SPIRONOLACT 096 00 AM PC) ONE:[id number] EDT 168 HR CLONID 12/10/ FILM, 12 complet CLONIDINE [facility] (St Clonidine INE:99 2019 EXTENDED ed [facility] 0.0125 8679 12:00: RELEASE Medical, MG/HR 00 AM PC) Transdermal EDT Patch CLONIDINE:9 51477 Spironolact SPIRON 12/10/ TABLET 90 complet SPIR ONOLACTO [facility] (St one 25 MG OLACTO 2019 ed NE [facility] Oral Tablet NE:313 12:00: Medi vasile, SPIRONOLACT 096 00 AM PC) ONE:[id number] EDT Labetalol LABETA 12/10/ TABLET 180 complet LABETA LOL [facility] (St hydrochlori LOL:89 2019 ed [facility] de 200 MG 6762 12:00: Medical, Oral Tablet 00 AM PC) LABETALOL:8 EDT 73241 168 HR CLONID 12/10/ FILM, 12 complet CLONIDINE [facility] (St Clonidine INE:99 2019 EXTENDED ed [facility] 0.0125 8679 12:00: RELEASE Medical, MG/HR 00 AM PC) Transdermal EDT Patch CLONIDINE:9 76219 Furosemide LASIX: 12/08/ TABLET 60 complet LASIX [facility] (St 80 MG Oral 125492 4378 ed [facility] Tablet 12:00: Medical, [Lasix] 00 AM PC) LASIX: EDT 2 Hydralazine HYDRAL 12/08/ TABLET 90 complet HYDR ALAZINE [facility] (St Hydrochlori AZINE: 2019 ed [facility] de 50 MG [id number] 12:00: Medical , Oral Tablet 00 AM PC) HYDRALAZINE EDT :336660 Hydralazine HYDRAL 12/08/ TABLET 90 complet HYDR ALAZINE [facility] (St Hydrochlori AZINE: 2019 ed [facility] de 50 MG 779300 12:00: Medical , Oral Tablet 00 AM PC) HYDRALAZINE EDT :248738 gabapentin GABAPE 12/08/ CAPSULE 30 complet PAULETTE PENTIN [facility] (St 100 MG Oral NTIN:3 2019 ed [facility] Capsule 12839 12:00: Medical, GABAPENTIN: 00 AM PC) 980316 EDT Tamsulosin TAMSUL 12/08/ CAPSULE 30 complet TAMS ULOSIN [facility] (St hydrochlori OSIN:8 2019 ed [facility] de 0.4 MG 09898 12:00: Medical , Oral 00 AM PC) Capsule EDT TAMSULOSIN: 413196 Clonidine CLONID 17/ TABLET 90 complet CLONID INE [facility] (St Hydrochlori INE:88 2019 ed [facility] de 0.1 MG 4173 12:00: Medical, Oral Tablet 00 AM PC) CLONIDINE:8 EDT 56880 gabapentin GABAPE 12/08/ CAPSULE 30 complet PAULETTE PENTIN [facility] (St 100 MG Oral NTIN:3 2019 ed [facility] Capsule 76352 12:00: Medical, GABAPENTIN: 00 AM PC) 999251 EDT Amlodipine AMLODI 12/08/ TABLET 30 complet AMLOD IPINE [facility] (St 10 MG Oral PINE:3 2019 ed [facility] Tablet 27316 12:00: Medical, AMLODIPINE: 00 AM PC) 601034 EDT Amlodipine AMLODI 17/ TABLET 30 complet AMLOD IPINE [facility] (St 10 MG Oral PINE:3 2019 ed [facility] Tablet 57947 12:00: Medical, AMLODIPINE: 00 AM PC) 270627 EDT Clonidine CLONID 12/08/ TABLET 90 complet CLONID INE [facility] (St Hydrochlori INE:88 2019 ed [facility] de 0.1 MG 4173 12:00: Medical, Oral Tablet 00 AM PC) CLONIDINE:8 EDT 60861 Amlodipine AMLODI 12/08/ TABLET 30 complet AMLOD IPINE [facility] (St 10 MG Oral PINE:3 2019 ed [facility] Tablet 02401 12:00: Medical, AMLODIPINE: 00 AM PC) 057606 EDT Tamsulosin TAMSUL 12/08/ CAPSULE 30 complet TAMS ULOSIN [facility] (St hydrochlori OSIN:8 2019 ed [facility] de 0.4 MG 28983 12:00: Medical , Oral 00 AM PC) Capsule EDT TAMSULOSIN: 561960 Furosemide LASIX: 12/08/ TABLET 60 complet LASIX [facility] (St 80 MG Oral [id number] 3092 ed [facility] Tablet 12:00: Medical, [Lasix] 00 AM PC) LASIX: EDT 2 Hydralazine HYDRAL 12/08/ TABLET 90 complet HYDR ALAZINE [facility] (St Hydrochlori AZINE: 2020 ed [facility] de 50 MG 349441 12:00: Medical , Oral Tablet 00 AM PC) HYDRALAZINE EDT :934026 gabapentin GABAPE 12/08/ CAPSULE 30 complet PAULETTE PENTIN [facility] (St 100 MG Oral NTIN:3 2019 ed [facility] Capsule 58851 12:00: Medical, GABAPENTIN: 00 AM PC) 544234 EDT Clonidine CLONID 12/08/ TABLET 90 complet CLONID INE [facility] (St Hydrochlori INE:88 2019 ed [facility] de 0.1 MG 4173 12:00: Medical, Oral Tablet 00 AM PC) CLONIDINE:8 EDT 99004 Amlodipine AMLODI 12/08/ TABLET 30 complet AMLOD IPINE [facility] (St 10 MG Oral PINE:3 2019 ed [facility] Tablet 12298 12:00: Medical, AMLODIPINE: 00 AM PC) 785482 EDT Clonidine CLONID 12/08/ TABLET 90 complet CLONID INE [facility] (St Hydrochlori INE:88 2019 ed Odny's de 0.1 MG 4173 12:00: Medical, Oral Tablet 00 AM PC) CLONIDINE:8 EDT 33086 gabapentin GABAPE 12/08/ CAPSULE 30 complet PAULETTE PENTIN [facility] (St 100 MG Oral NTIN:3 2019 ed [facility] Capsule 88324 12:00: Medical, GABAPENTIN: 00 AM PC) 383491 EDT Hydralazine HYDRAL 12/08/ TABLET 90 complet HYDR ALAZINE [facility] (St Hydrochlori AZINE: 2019 ed [facility] de 50 MG 807650 12:00: Medical , Oral Tablet 00 AM PC) HYDRALAZINE EDT :823668 Tamsulosin TAMSUL 12/08/ CAPSULE 30 complet TAMS ULOSIN [facility] (St hydrochlori OSIN:8 2019 ed [facility] de 0.4 MG 47432 12:00: Medical , Oral 00 AM PC) Capsule EDT TAMSULOSIN: 040910 Furosemide LASIX: 12/08/ TABLET 60 complet LASIX [facility] (St 80 MG Oral 614281 2056 ed [facility] Tablet 12:00: Medical, [Lasix] 00 AM PC) LASIX: EDT 2 Tamsulosin TAMSUL 12/08/ CAPSULE 30 complet TAMS ULOSIN [facility] (St hydrochlori OSIN:8 2019 ed [facility] de 0.4 MG 53978 12:00: Medical , Oral 00 AM PC) Capsule EDT TAMSULOSIN: 816954 Furosemide LASIX: 12/08/ TABLET 60 complet LASIX [facility] (St 80 MG Oral 048737 1565 ed [facility] Tablet 12:00: Medical, [Lasix] 00 AM PC) LASIX: EDT 2 Hydralazine HYDRAL 11/24/ TABLET 180 complet HYDR ALAZINE [facility] (St Hydrochlori AZINE: 2019 ed [facility] de 50 MG 304280 12:00: Medical , Oral Tablet 00 AM PC) HYDRALAZINE EDT :592568 BLOOD complet BLOOD [facility] ( St PRESSURE [...] MG Oral MIDE:3 2019 ed [facility] Tablet 99493 12:00: Medical, FUROSEMIDE: 00 AM PC) 198722 EDT Hydralazine HYDRAL 11/24/ TABLET 180 complet HYDR ALAZINE [facility] (St Hydrochlori AZINE: 2019 ed [facility] de 50 MG 842776 12:00: Medical , Oral Tablet 00 AM PC) HYDRALAZINE EDT :763212 BLOOD complet BLOOD [facility] ( St PRESSURE 2020 ed PRESSURE KIT Tony n's KIT DEVICE: 12:00: DEVICE Medi vasile, 00 AM PC) EDT Furosemide FUROSE /03/ TABLET 180 complet FUROS EMIDE [facility] (St 40 MG Oral MIDE:3 2019 ed [facility] Tablet 78551 12:00: Medical, FUROSEMIDE: 00 AM PC) 685406 EDT Furosemide FUROSE /03/ TABLET 180 complet FUROS EMIDE [facility] (St 40 MG Oral MIDE:3 2019 ed [facility] Tablet 71953 12:00: Medical, FUROSEMIDE: 00 AM PC) 878841 EDT BLOOD complet BLOOD MED[facility] ( St PRESSURE 2020 ed PRESSURE KIT Tony n's KIT DEVICE: 12:00: DEVICE Medi vasile, 00 AM PC) EDT Hydralazine HYDRAL 08/03/ TABLET 180 complet HYDR ALAZINE [facility] (St Hydrochlori AZINE: 2019 ed [facility] de 50 MG 728844 12:00: Medical , Oral Tablet 00 AM PC) HYDRALAZINE EDT :402528 Hydralazine HYDRAL 08/03/ TABLET 180 complet HYDR ALAZINE MED[facility] (St Hydrochlori AZINE: 2019 ed [facility] de 50 MG 322520 12:00: Medical , Oral Tablet 00 AM PC) HYDRALAZINE EDT :161238 BLOOD complet BLOOD [facility] ( St PRESSURE 2020 ed PRESSURE KIT Tony n's KIT DEVICE: 12:00: DEVICE Medi vasile, 00 AM PC) EDT Furosemide FUROSE 0803/ TABLET 180 complet FUROS EMIDE [facility] (St 40 MG Oral MIDE:3 2019 ed [facility] Tablet 77521 12:00: Medical, FUROSEMIDE: 00 AM PC) 041788 EDT BLOOD complet BLOOD MED[facility] ( St PRESSURE 2020 ed PRESSURE KIT Tony n's KIT DEVICE: 12:00: DEVICE Medi vasile, 00 AM PC) EDT Hydralazine HYDRAL 08/03/ TABLET 180 complet HYDR ALAZINE MED[facility] (St Hydrochlori AZINE: 2019 ed [facility] de 50 MG 118877 12:00: Medical , Oral Tablet 00 AM PC) HYDRALAZINE EDT :798478 Furosemide FUROSE 08/03/ TABLET 180 complet FUROS EMIDE [facility] (St 40 MG Oral MIDE:3 2019 ed [facility] Tablet 55951 12:00: Medical, FUROSEMIDE: 00 AM PC) 843933 EDT BLOOD complet BLOOD MED[facility] ( St PRESSURE 2020 ed PRESSURE KIT Tony n's KIT DEVICE: 12:00: DEVICE Medi vasile, 00 AM PC) EDT Hydralazine HYDRAL 08/03/ TABLET 180 complet HYDR ALAZINE MED[facility] (St Hydrochlori AZINE: 2019 ed [facility] de 50 MG 782241 12:00: Medical , Oral Tablet 00 AM PC) HYDRALAZINE EDT :929954 Furosemide FUROSE 11/24/ TABLET 180 complet FUROS EMIDE [facility] (St 40 MG Oral MIDE:3 2019 ed [facility] Tablet 29099 12:00: Medical, FUROSEMIDE: 00 AM PC) 596460 EDT BLOOD complet BLOOD MED[facility] ( St [...] Oral Tablet 00 AM PC) LABETALOL:8 EDT 93986 Meclizine MECLIZ 11/05/ complet MECLIZIN E [facility] (St Hydrochlori INE:99 2019 ed [facility] de 12.5 MG 5624 12:00: Medical , Oral Tablet 00 AM PC) MECLIZINE:9 EDT 70715 Aspirin 81 ASPIRI 11/05/ complet ASPIRIN [facility] (St MG Delayed N:3084 2019 ed [facility] Release 16 12:00: Medical, Oral Tablet 00 AM PC) ASPIRIN:308 EDT 416 Ergocalcife ERGOCA 11/05/ CAPSULE 12 complet ERG OCALCIFER MED[facility] (St rol 23995 LCIFER 2020 ed OL [facility] UNT Oral OL:136 12:00: Medical , Capsule 7410 00 AM PC) ERGOCALCIFE EDT ROL:[id number] Meclizine MECLIZ 11/05/ complet MECLIZIN E MED[facility] (St Hydrochlori INE:99 2019 ed [facility] de 12.5 MG 5624 12:00: Medical , Oral Tablet 00 AM PC) MECLIZINE:9 EDT 56153 Meclizine MECLIZ 11/05/ complet MECLIZIN E MED[facility] (St Hydrochlori INE:99 2019 ed [facility] de 12.5 MG 5624 12:00: Medical , Oral Tablet 00 AM PC) MECLIZINE:9 EDT 98871 Labetalol LABETA 15/ TABLET 30 complet LABETA LOL [facility] (St hydrochlori LOL:89 2019 ed [facility] de 200 MG 6762 12:00: Medical, Oral Tablet 00 AM PC) LABETALOL:8 EDT 33411 gabapentin GABAPE 11/05/ CAPSULE 30 complet PAULETTE PENTIN MED[facility] (St 100 MG Oral NTIN:3 2019 ed [facility] Capsule 70786 12:00: Medical, GABAPENTIN: 00 AM PC) 457308 EDT Ergocalcife ERGOCA 11/05/ CAPSULE 12 complet ERG OCALCIFER MEDGEN (St rol 70763 LCIFER 2020 ed OL [facility] UNT Oral OL:136 12:00: Medical , Capsule 7410 00 AM PC) ERGOCALCIFE EDT ROL:[id number] Aspirin 81 ASPIRI 11/05/ complet ASPIRIN [facility] (St MG Delayed N:3084 2019 ed [facility] Release 16 12:00: Medical, Oral Tablet 00 AM PC) ASPIRIN:308 EDT 416 atorvastati ATORVA 11/05/ complet ATORVA STATIN MEDGEN (St n 80 MG STATIN 2019 ed [facility] Oral Tablet :31112 12:00: Medi vasile, ATORVASTATI 5 00 AM PC) N:[id number] EDT alogliptin ALOGLI 11/05/ complet ALOGLIP TIN [facility] (St 6.25 MG PTIN:1 2019 ed [facility] Oral Tablet 556155 12:00: Medi vasile, ALOGLIPTIN: 00 AM PC) 4185940 EDT Aspirin 81 ASPIRI 11/05/ complet ASPIRIN [facility] (St MG Delayed N:3084 2019 ed [facility] Release 16 12:00: Medical, Oral Tablet 00 AM PC) ASPIRIN:308 EDT 416 Amlodipine AMLODI 11/05/ complet AMLODIP INE [facility] (St 5 MG Oral PINE:1 2019 ed [facility] Tablet 16504 12:00: Medical, AMLODIPINE: 00 AM PC) 442615 EDT Ergocalcife ERGOCA 15/ CAPSULE 12 complet ERG OCALCIFER MEDGEN (St rol 03148 LCIFER 2020 ed OL [facility] UNT Oral OL:136 12:00: Medical , Capsule 7410 00 AM PC) ERGOCALCIFE EDT ROL:[id number] Sodium SODIUM 11/05/ TABLET 180 complet SODIUM ME DGEN (St Bicarbonate BICARB 2020 ed BICARBONATE [facility] 650 MG Oral TREVOR: 12:00: Medi vasile, Tablet 375975 00 AM PC) SODIUM EDT BICARBONATE :906188 Ergocalcife ERGOCA 11/05/ CAPSULE 12 complet ERG OCALCIFER MEDGEN (St rol 08756 LCIFER 2020 ed OL [facility] UNT Oral OL:136 12:00: Medical , Capsule 7410 00 AM PC) ERGOCALCIFE EDT ROL:[id number] Sodium SODIUM 11/05/ TABLET 180 complet SODIUM ME DGEN (St Bicarbonate BICARB 2019 ed BICARBONATE [facility] 650 MG Oral TREVOR: 12:00: Medi vasile, Tablet [id number] 00 AM PC) SODIUM EDT BICARBONATE :19870923 Meclizine MECLIZ 11/05/ complet MECLIZIN E [facility] (St Hydrochlori INE:99 2019 ed [facility] de 12.5 MG 5624 12:00: Medical , Oral Tablet 00 AM PC) MECLIZINE:9 EDT 45852 Labetalol LABETA 11/05/ TABLET 30 complet LABETA LOL [facility] (St hydrochlori LOL:89 2019 ed [facility] de 200 MG 6762 12:00: Medical, Oral Tablet 00 AM PC) LABETALOL:8 EDT 81444 gabapentin GABAPE 11/05/ CAPSULE 30 complet PAULETTE PENTIN MED[facility] (St 100 MG Oral NTIN:3 2019 ed [facility] Capsule 00572 12:00: Medical, GABAPENTIN: 00 AM PC) 383987 EDT Amlodipine AMLODI 11/05/ complet AMLODIP INE [facility] (St 5 MG Oral PINE:1 2019 ed [facility] Tablet 65574 12:00: Medical, AMLODIPINE: 00 AM PC) 666900 EDT alogliptin ALOGLI 11/05/ complet ALOGLIP TIN [facility] (St 6.25 MG PTIN:1 2019 ed [facility] Oral Tablet 877301 12:00: Medi vasile, ALOGLIPTIN: 00 AM PC) 6636665 EDT Ergocalcife ERGOCA 11/05/ CAPSULE 12 complet ERG OCALCIFER MEDGEN (St rol 67764 LCIFER 2020 ed OL [facility] UNT Oral OL:136 12:00: Medical , Capsule 7410 00 AM PC) ERGOCALCIFE EDT ROL:[id number] atorvastati ATORVA 11/05/ complet ATORVA STATIN MEDGEN (St n 80 MG STATIN 2019 ed [facility] Oral Tablet :14507 12:00: Medi vasile, ATORVASTATI 5 00 AM PC) N:[id number] EDT alogliptin ALOGLI 11/05/ complet ALOGLIP TIN MEDGEN (St 6.25 MG PTIN:1 2019 ed [facility] Oral Tablet 701038 12:00: Medi vasile, ALOGLIPTIN: 00 AM PC) 6304809 EDT Aspirin 81 ASPIRI 11/05/ complet ASPIRIN MED[facility] (St MG Delayed N:3084 2019 ed [facility] Release 16 12:00: Medical, Oral Tablet 00 AM PC) ASPIRIN:308 EDT 416 Amlodipine AMLODI 11/05/ complet AMLODIP INE MED[facility] (St 5 MG Oral PINE:2019 ed [facility] Tablet 79862 12:00: Medical, AMLODIPINE: 00 AM PC) 379255 EDT atorvastati ATORVA 11/05/ complet ATORVA STATIN MEDGEN (St n 80 MG STATIN 2019 ed [facility] Oral Tablet :07335 12:00: Medi vasile, ATORVASTATI 5 00 AM PC) N:939766 EDT Aspirin 81 ASPIRI 11/05/ complet ASPIRIN MEDGEN (St MG Delayed N:3084 2019 ed [facility] Release 16 12:00: Medical, Oral Tablet 00 AM PC) ASPIRIN:308 EDT 416 gabapentin GABAPE 11/05/ CAPSULE 30 complet PAULETTE PENTIN MEDGEN (St 100 MG Oral NTIN:3 2019 ed [facility] Capsule 29059 12:00: Medical, GABAPENTIN: 00 AM PC) 696697 EDT Labetalol LABETA 11/05/ TABLET 30 complet LABETA LOL MED[facility] (St hydrochlori LOL:89 2019 ed [facility] de 200 MG 6762 12:00: Medical, Oral Tablet 00 AM PC) LABETALOL:8 EDT 91466 alogliptin ALOGLI 11/05/ complet ALOGLIP TIN MEDGEN (St 6.25 MG PTIN:1 2019 ed [facility] Oral Tablet 633583 12:00: Medi vasile, ALOGLIPTIN: 00 AM PC) 5199927 EDT Amlodipine AMLODI 11/05/ complet AMLODIP INE MED[facility] (St 5 MG Oral PINE:2019 ed [facility] Tablet 25689 12:00: Medical, AMLODIPINE: 00 AM PC) 546835 EDT Aspirin 81 ASPIRI 11/05/ complet ASPIRIN MEDGEN (St MG Delayed N:3084 2020 ed [facility] Release 16 12:00: Medical, Oral Tablet 00 AM PC) ASPIRIN:308 EDT 416 gabapentin GABAPE 15/ CAPSULE 30 complet PAULETTE PENTIN MEDGEN (St 100 MG Oral NTIN:3 2019 ed [facility] Capsule 73751 12:00: Medical, GABAPENTIN: 00 AM PC) [id number] EDT atorvastati ATORVA 15/ complet ATORVA STATIN MEDGEN (St n 80 MG STATIN 2020 ed [facility] Oral Tablet :72625 12:00: Medi vasile, ATORVASTATI 5 00 AM PC) N:244269 EDT Ergocalcife ERGOCA 11/05/ CAPSULE 12 complet ERG OCALCIFER MEDGEN (St rol 11003 LCIFER 2019 ed OL [facility] UNT Oral OL:136 12:00: Medical , Capsule 7410 00 AM PC) ERGOCALCIFE EDT ROL:[id number] Meclizine MECLIZ 11/05/ complet MECLIZIN E MED[facility] (St Hydrochlori INE:99 2019 ed [facility] de 12.5 MG 5624 12:00: Medical , Oral Tablet 00 AM PC) MECLIZINE:9 EDT 04140 Meclizine MECLIZ 11/05/ complet MECLIZIN E MED[facility] (St Hydrochlori INE:99 2019 ed [facility] de 12.5 MG 5624 12:00: Medical , Oral Tablet 00 AM PC) MECLIZINE:9 EDT 54019 Sodium SODIUM 15/ TABLET 180 complet SODIUM ME DGEN (St Bicarbonate BICARB 2020 ed BICARBONATE [facility] 650 MG Oral TREVOR: 12:00: Medi vasile, Tablet [id number] 00 AM PC) SODIUM EDT BICARBONATE :19870923 Labetalol LABETA 15/ TABLET 30 complet LABETA LOL MED[facility] (St hydrochlori LOL:89 2019 ed [facility] de 200 MG 6762 12:00: Medical, Oral Tablet 00 AM PC) LABETALOL:8 EDT 64722 gabapentin GABAPE /15/ CAPSULE 30 complet PAULETTE PENTIN MED[facility] (St 100 MG Oral NTIN:3 2019 ed [facility] Capsule 93835 12:00: Medical, GABAPENTIN: 00 AM PC) 871858 EDT Hydralazine HYDRAL 15/ TABLET 30 complet HYDR ALAZINE MED[facility] (St Hydrochlori AZINE: 2020 ed [facility] de 50 MG 802458 12:00: Medical , Oral Tablet 00 AM PC) HYDRALAZINE EDT :348681 Aspirin 81 ASPIRI 11/05/ complet ASPIRIN MED[facility] (St MG Delayed N:3084 2019 ed [facility] Release 16 12:00: Medical, Oral Tablet 00 AM PC) ASPIRIN:308 EDT 416 atorvastati ATORVA 11/05/ complet ATORVA STATIN MEDGEN (St n 80 MG STATIN 2019 ed [facility] Oral Tablet :87764 12:00: Medi vasile, ATORVASTATI 5 00 AM PC) N:804691 EDT Labetalol LABETA 11/05/ TABLET 30 complet LABETA LOL MEDGEN (St hydrochlori LOL:89 2019 ed [facility] de 200 MG 6762 12:00: Medical, Oral Tablet 00 AM PC) LABETALOL:8 EDT 62472 Hydralazine HYDRAL 11/05/ TABLET 30 complet HYDR ALAZINE MEDGEN (St Hydrochlori AZINE: 2019 ed [facility] de 50 MG 912448 12:00: Medical , Oral Tablet 00 AM PC) HYDRALAZINE EDT :904902 Meclizine MECLIZ 11/05/ complet MECLIZIN E MEDGEN (St Hydrochlori INE:99 2019 ed [facility] de 12.5 MG 5624 12:00: Medical , Oral Tablet 00 AM PC) MECLIZINE:9 EDT 56740 gabapentin GABAPE 11/05/ CAPSULE 30 complet PAULETTE PENTIN MEDGEN (St 100 MG Oral NTIN:3 2019 ed [facility] Capsule 08941 12:00: Medical, GABAPENTIN: 00 AM PC) 914882 EDT Furosemide FUROSE 11/05/ TABLET 90 complet FUROS EMIDE [facility] (St 40 MG Oral MIDE:3 2019 ed [facility] Tablet 75694 12:00: Medical, FUROSEMIDE: 00 AM PC) 668955 EDT Sodium SODIUM 11/05/ TABLET 180 complet SODIUM ME DGEN (St Bicarbonate BICARB 2019 ed BICARBONATE [facility] 650 MG Oral TREVOR: 12:00: Medi vasile, Tablet [id number] 00 AM PC) SODIUM EDT BICARBONATE :201783 Amlodipine AMLODI 11/05/ complet AMLODIP INE MED[facility] (St 5 MG Oral PINE:1 2019 ed [facility] Tablet 93168 12:00: Medical, AMLODIPINE: 00 AM PC) 085937 EDT alogliptin ALOGLI 11/05/ complet ALOGLIP TIN MEDGEN (St 6.25 MG PTIN:1 2019 ed [facility] Oral Tablet 393088 12:00: Medi vasile, ALOGLIPTIN: 00 AM PC) 5308315 EDT alogliptin ALOGLI 11/05/ complet ALOGLIP TIN MEDGEN (St 6.25 MG PTIN:2019 ed [facility] Oral Tablet 511745 12:00: Medi vasile, ALOGLIPTIN: 00 AM PC) [id number] EDT Amlodipine AMLODI 11/05/ complet AMLODIP INE MED[facility] (St 5 MG Oral PINE:2019 ed [facility] Tablet 34186 12:00: Medical, AMLODIPINE: 00 AM PC) [id number] EDT Aspirin 81 ASPIRI 11/05/ complet ASPIRIN MED[facility] (St MG Delayed N:3084 2019 ed [facility] Release 16 12:00: Medical, Oral Tablet 00 AM PC) ASPIRIN:308 EDT 416 atorvastati ATORVA 11/05/ complet ATORVA STATIN MEDGEN (St n 80 MG STATIN 2019 ed [facility] Oral Tablet :09730 12:00: Medi vasile, ATORVASTATI 5 00 AM PC) N:[id number] EDT Ergocalcife ERGOCA 15/ CAPSULE 12 complet ERG OCALCIFER MEDGEN (St rol 45866 LCIFER 2019 ed OL [facility] UNT Oral OL:136 12:00: Medical , Capsule 7410 00 AM PC) ERGOCALCIFE EDT ROL:[id number] gabapentin GABAPE 11/05/ CAPSULE 30 complet PAULETTE PENTIN MEDGEN (St 100 MG Oral NTIN:3 2019 ed [facility] Capsule 00944 12:00: Medical, GABAPENTIN: 00 AM PC) 991076 EDT Labetalol LABETA 15/ TABLET 30 complet LABETA LOL MEDGEN (St hydrochlori LOL:89 2019 ed [facility] de 200 MG 6762 12:00: Medical, Oral Tablet 00 AM PC) LABETALOL:8 EDT 16573 Ergocalcife ERGOCA 15/ CAPSULE 12 complet ERG OCALCIFER MEDGEN (St rol 53814 LCIFER 2020 ed OL [facility] UNT Oral OL:136 12:00: Medical , Capsule 7410 00 AM PC) ERGOCALCIFE EDT ROL:[id number] Sodium SODIUM 07/15/ TABLET 180 complet SODIUM ME DGEN (St Bicarbonate BICARB 2019 ed BICARBONATE [facility] 650 MG Oral TREVOR: 12:00: Medi vasile, Tablet [id number] 00 AM PC) SODIUM EDT BICARBONATE :305309 Aspirin 81 ASPIRI 11/05/ complet ASPIRIN MED[facility] (St MG Delayed N:3084 2019 ed [facility] Release 16 12:00: Medical, Oral Tablet 00 AM PC) ASPIRIN:308 EDT 416 Meclizine MECLIZ 11/05/ complet MECLIZIN E MEDGEN (St Hydrochlori INE:99 2019 ed [facility] de 12.5 MG 5624 12:00: Medical , Oral Tablet 00 AM PC) MECLIZINE:9 EDT 51876 Meclizine MECLIZ 11/05/ complet MECLIZIN E MEDGEN (St Hydrochlori INE:99 2019 ed [facility] de 12.5 MG 5624 12:00: Medical , Oral Tablet 00 AM PC) MECLIZINE:9 EDT 85020 Sodium SODIUM 11/05/ TABLET 180 complet SODIUM ME DGEN (St Bicarbonate BICARB 2019 ed BICARBONATE [facility] 650 MG Oral TREVOR: 12:00: Medi vasile, Tablet [id number] 00 AM PC) SODIUM EDT BICARBONATE :[id number] Sodium SODIUM 15/ TABLET 180 complet SODIUM ME DGEN (St Bicarbonate BICARB 2019 ed BICARBONATE [facility] 650 MG Oral TREVOR: 12:00: Medi vasile, Tablet [id number] 00 AM PC) SODIUM EDT BICARBONATE :[id number] Meclizine MECLIZ 11/05/ complet MECLIZIN E MEDGEN (St Hydrochlori INE:99 2019 ed [facility] de 12.5 MG 5624 12:00: Medical , Oral Tablet 00 AM PC) MECLIZINE:9 EDT 44739 Labetalol LABETA 15/ TABLET 30 complet LABETA LOL MEDGEN (St hydrochlori LOL:89 2019 ed [facility] de 200 MG 6762 12:00: Medical, Oral Tablet 00 AM PC) LABETALOL:8 EDT 96795 gabapentin GABAPE 15/ CAPSULE 30 complet PAULETTE PENTIN MEDGEN (St 100 MG Oral NTIN:3 2020 ed [facility] Capsule 96998 12:00: Medical, GABAPENTIN: 00 AM PC) [id number] EDT Labetalol LABETA 07/15/ TABLET 30 complet LABETA LOL MEDGEN (St hydrochlori LOL:89 2019 ed [facility] de 200 MG 6762 12:00: Medical, Oral Tablet 00 AM PC) LABETALOL:8 EDT 88555 Meclizine MECLIZ 11/05/ complet MECLIZIN E MEDGEN (St Hydrochlori INE:99 2019 ed [facility] de 12.5 MG 5624 12:00: Medical , Oral Tablet 00 AM PC) MECLIZINE:9 EDT 14642 Aspirin 81 ASPIRI 11/05/ complet ASPIRIN MEDGEN (St MG Delayed N:3084 2019 ed [facility] Release 16 12:00: Medical, Oral Tablet 00 AM PC) ASPIRIN:308 EDT 416 atorvastati ATORVA 11/05/ complet ATORVA STATIN MEDGEN (St n 80 MG STATIN 2019 ed [facility] Oral Tablet :19205 12:00: Medi vasile, ATORVASTATI 5 00 AM PC) N:[id number] EDT Ergocalcife ERGOCA 11/05/ CAPSULE 12 complet ERG OCALCIFER MEDGEN (St rol 01861 LCIFER 2019 ed [facility] UNT Oral OL:136 12:00: Medical , Capsule 7410 00 AM PC) ERGOCALCIFE EDT ROL:[id number] Labetalol LABETA 11/05/ TABLET 30 complet LABETA LOL MEDGEN (St hydrochlori LOL:89 2019 ed [facility] de 200 MG 6762 12:00: Medical, Oral Tablet 00 AM PC) LABETALOL:8 EDT 62880 Meclizine MECLIZ 11/05/ complet MECLIZIN E MEDGEN (St Hydrochlori INE:99 2019 ed [facility] de 12.5 MG 5624 12:00: Medical , Oral Tablet 00 AM PC) MECLIZINE:9 EDT 72422 Amlodipine AMLODI 11/05/ complet AMLODIP INE MEDGEN (St 5 MG Oral PINE:1 2019 ed [facility] Tablet 06326 12:00: Medical, AMLODIPINE: 00 AM PC) [id number] EDT alogliptin ALOGLI 11/05/ complet ALOGLIP TIN MEDGEN (St 6.25 MG PTIN:2019 ed [facility] Oral Tablet 578557 12:00: Medi vasile, ALOGLIPTIN: 00 AM PC) [id number] EDT atorvastati ATORVA 11/05/ complet ATORVA STATIN MEDGEN (St n 80 MG STATIN 2019 ed [facility] Oral Tablet :17272 12:00: Medi vasile, ATORVASTATI 5 00 AM PC) N:[id number] EDT Ergocalcife ERGOCA 15/ CAPSULE 12 complet ERG OCALCIFER MEDGEN (St rol 97463 LCIFER 2020 ed OL [facility] UNT Oral OL:136 12:00: Medical , Capsule 7410 00 AM PC) ERGOCALCIFE EDT ROL:[id number] Amlodipine AMLODI 11/05/ complet AMLODIP INE MEDGEN (St 5 MG Oral PINE:1 2019 ed [facility] Tablet 71508 12:00: Medical, AMLODIPINE: 00 AM PC) [id number] EDT Aspirin 81 ASPIRI 11/05/ complet ASPIRIN MEDGEN (St MG Delayed N:3084 2019 ed [facility] Release 16 12:00: Medical, Oral Tablet 00 AM PC) ASPIRIN:308 EDT 416 Ergocalcife ERGOCA 11/05/ CAPSULE 12 complet ERG OCALCIFER MEDGEN (St rol 98630 LCIFER 2019 ed OL [facility] UNT Oral OL:136 12:00: Medical , Capsule 7410 00 AM PC) ERGOCALCIFE EDT ROL:[id number] Aspirin 81 ASPIRI 11/05/ complet ASPIRIN MEDGEN (St MG Delayed N:3084 2019 ed [facility] Release 16 12:00: Medical, Oral Tablet 00 AM PC) ASPIRIN:308 EDT 416 alogliptin ALOGLI 11/05/ complet ALOGLIP TIN MEDGEN (St 6.25 MG PTIN:1 2019 ed [facility] Oral Tablet 125223 12:00: Medi vasile, ALOGLIPTIN: 00 AM PC) [id number] EDT Lisinopril LISINO 10/29/ TABLET 30 complet LISIN OPRIL MEDGEN (St 5 MG Oral PRIL:3 2019 ed [facility] Tablet 41060 12:00: Medical, LISINOPRIL: 00 AM PC) [id number] EDT Lisinopril LISINO 10/29/ TABLET 30 complet LISIN OPRIL MEDGEN (St 5 MG Oral PRIL:3 2019 ed [facility] Tablet 16817 12:00: Medical, LISINOPRIL: 00 AM PC) 532771 EDT Lisinopril LISINO 10/29/ TABLET 30 complet LISIN OPRIL MEDGEN (St 5 MG Oral PRIL:3 2019 ed [facility] Tablet 12497 12:00: Medical, LISINOPRIL: 00 AM PC) 783613 EDT Ergocalcife ERGOCA 10/29/ CAPSULE 12 complet ERG OCALCIFER MEDGEN (St rol 42896 LCIFER 2019 ed OL [facility] UNT Oral OL:136 12:00: Medical , Capsule 7410 00 AM PC) ERGOCALCIFE EDT ROL:[id number] Sodium SODIUM 07/08/ TABLET 180 complet SODIUM ME DGEN (St Bicarbonate BICARB 2019 ed BICARBONATE [facility] 650 MG Oral TREVOR: 12:00: Medi vasile, Tablet 695759 00 AM PC) SODIUM EDT BICARBONATE :[id number] Lisinopril LISINO /08/ TABLET 30 complet LISIN OPRIL MEDGEN (St 5 MG Oral PRIL:3 2019 ed [facility] Tablet 99216 12:00: Medical, LISINOPRIL: 00 AM PC) 039703 EDT Lisinopril LISINO /08/ TABLET 30 complet LISIN OPRIL MEDGEN (St 5 MG Oral PRIL:3 2019 ed [facility] Tablet 10877 12:00: Medical, LISINOPRIL: 00 AM PC) 175555 EDT Lisinopril LISINO /08/ TABLET 30 complet LISIN OPRIL MEDGEN (St 5 MG Oral PRIL:3 2019 ed [facility] Tablet 22207 12:00: Medical, LISINOPRIL: 00 AM PC) [id number] EDT Lisinopril LISINO 07/08/ TABLET 30 complet LISIN OPRIL MEDGEN (St 5 MG Oral PRIL:3 2019 ed [facility] Tablet 18168 12:00: Medical, LISINOPRIL: 00 AM PC) 082754 EDT Lisinopril LISINO /08/ TABLET 30 complet LISIN OPRIL MEDGEN (St 5 MG Oral PRIL:3 2019 ed [facility] Tablet 87398 12:00: Medical, LISINOPRIL: 00 AM PC) 310958 EDT Hydralazine HYDRAL 15/ TABLET 60 complet HYDR ALAZINE MEDGEN (St Hydrochlori AZINE: 2019 ed [facility] de 50 MG 757235 12:00: Medical , Oral Tablet 00 AM PC) HYDRALAZINE EDT :859977 Hydralazine HYDRAL 06/15/ TABLET 60 complet HYDR ALAZINE MEDGEN (St Hydrochlori AZINE: 2019 ed [facility] de 50 MG 906194 12:00: Medical , Oral Tablet 00 AM PC) HYDRALAZINE EDT :585045 Hydralazine HYDRAL 06/15/ TABLET 60 complet HYDR ALAZINE MEDGEN (St Hydrochlori AZINE: 2019 ed [facility] de 50 MG 688270 12:00: Medical , Oral Tablet 00 AM PC) HYDRALAZINE EDT :852336 Hydralazine HYDRAL 06/15/ TABLET 60 complet HYDR ALAZINE MEDGEN (St Hydrochlori AZINE: 2019 ed [facility] de 50 MG 942327 12:00: Medical , Oral Tablet 00 AM PC) HYDRALAZINE EDT :080601 Hydralazine HYDRAL 06/15/ TABLET 60 complet HYDR ALAZINE MEDGEN (St Hydrochlori AZINE: 2019 ed [facility] de 50 MG 984443 12:00: Medical , Oral Tablet 00 AM PC) HYDRALAZINE EDT :064780 Hydralazine HYDRAL 06/15/ TABLET 60 complet HYDR ALAZINE MEDGEN (St Hydrochlori AZINE: 2019 ed [facility] de 50 MG 283433 12:00: Medical , Oral Tablet 00 AM PC) HYDRALAZINE EDT :193796 Hydralazine HYDRAL 06/15/ TABLET 60 complet HYDR ALAZINE MEDGEN (St Hydrochlori AZINE: 2019 ed [facility] de 50 MG 844786 12:00: Medical , Oral Tablet 00 AM PC) HYDRALAZINE EDT :375251 Hydralazine HYDRAL 06/15/ TABLET 60 complet HYDR ALAZINE MEDGEN (St Hydrochlori AZINE: 2019 ed [facility] de 50 MG 268835 12:00: Medical , Oral Tablet 00 AM PC) HYDRALAZINE EDT :912143 Hydralazine HYDRAL 06/15/ TABLET 60 complet HYDR ALAZINE MEDGEN (St Hydrochlori AZINE: 2020 ed [facility] de 50 MG 411731 12:00: Medical , Oral Tablet 00 AM PC) HYDRALAZINE EDT :591104 Hydralazine HYDRAL 06/15/ TABLET 60 complet HYDR ALAZINE MEDGEN (St Hydrochlori AZINE: 2019 ed [facility] de 50 MG 834955 12:00: Medical , Oral Tablet 00 AM PC) HYDRALAZINE EDT :376481 Hydralazine HYDRAL 10/06/ TABLET 60 complet HYDR ALAZINE MEDGEN (St Hydrochlori AZINE: 2019 ed [facility] de 50 MG 317842 12:00: Medical , Oral Tablet 00 AM PC) HYDRALAZINE EDT :576930 alogliptin ALOGLI 29/ TABLET 90 complet ALOGL IPTIN MEDGEN (St 6.25 MG PTIN:2019 ed [facility] Oral Tablet 933768 12:00: Medi vasile, ALOGLIPTIN: 00 AM PC) [id number] EDT alogliptin ALOGLI 09/19/ TABLET 90 complet ALOGL IPTIN MEDGEN (St 6.25 MG PTIN:2019 ed [facility] Oral Tablet 000314 12:00: Medi vasile, ALOGLIPTIN: 00 AM PC) [id number] EDT clopidogrel PLAVIX 09/19/ TABLET 90 complet PLAV IX MEDGEN (St 75 MG Oral :2019 ed [facility] Tablet 9 12:00: Medical, [Plavix] 00 AM PC) PLAVIX:2131 EDT 69 ONE TOUCH 180 complet ONE TOUCH MEDGEN (St ULTRA TEST 2019 ed ULTRA TEST [facility] STRIP (MAIL 12:00: STRIP ([employer] [facility], ORDER): 00 AM ORDER) PC) EDT ONE TOUCH 09/19/ 200 complet ONE TOUCH MEDGEN (St LANCET FINE 2019 ed LANCET FINE [facility] POINT: 12:00: POINT Medical, 00 AM PC) EDT Meclizine MECLIZ 09/19/ TABLET 30 complet MECLIZ INE MEDGEN (St Hydrochlori INE:99 2019 ed [facility] de 12.5 MG 5624 12:00: Medical , Oral Tablet 00 AM PC) MECLIZINE:9 EDT 04904 atorvastati ATORVA 09/19/ TABLET 90 complet ATOR VASTATIN MEDGEN (St n 80 MG STATIN 2019 ed [facility] Oral Tablet :41500 12:00: Medi vasile, ATORVASTATI 5 00 AM PC) N:[id number] EDT ONE TOUCH 180 complet ONE TOUCH MEDGEN (St ULTRA TEST 2019 ed ULTRA TEST [facility] STRIP (MAIL 12:00: STRIP ([employer] [facility], ORDER): 00 AM ORDER) PC) EDT ONE TOUCH 09/19/ 200 complet ONE TOUCH MEDGEN (St LANCET FINE 2020 ed LANCET FINE [facility] POINT: 12:00: POINT Medical, 00 AM PC) EDT alogliptin ALOGLI 09/19/ TABLET 90 complet ALOGL IPTIN MEDGEN (St 6.25 MG PTIN:1 2019 ed [facility] Oral Tablet 123083 12:00: Medi vasile, ALOGLIPTIN: 00 AM PC) [id number] EDT Aspirin 81 ASPIRI 29/ TABLET, 90 [...] Oral Tablet 00 AM PC) MECLIZINE:9 EDT 69477 atorvastati ATORVA 09/19/ TABLET 90 complet ATOR VASTATIN MEDGEN (St n 80 MG STATIN 2019 ed [facility] Oral Tablet :44562 12:00: Medi vasile, ATORVASTATI 5 00 AM PC) N:[id number] EDT Aspirin 81 ASPIRI 29/ TABLET, 90 complet ASPI RIN MEDGEN (St MG Chewable N:[id number] CHEWABLE ed [facility] Tablet 72 12:00: Medical, ASPIRIN:318 00 AM PC) 272 EDT atorvastati ATORVA 09/19/ TABLET 90 complet ATOR VASTATIN MEDGEN (St n 80 MG STATIN 2019 ed [facility] Oral Tablet :16074 12:00: Medi vasile, ATORVASTATI 5 00 AM PC) N:[id number] EDT gabapentin GABAPE 05/29/ CAPSULE 360 complet PAULETTE PENTIN MEDGEN (St 100 MG Oral NTIN:3 2019 ed [facility] Capsule 24123 12:00: Medical, GABAPENTIN: 00 AM PC) 125184 EDT Labetalol LABETA 09/19/ TABLET 540 complet LABETA LOL MEDGEN (St hydrochlori LOL:89 2019 ed [facility] de 200 MG 6762 12:00: Medical, Oral Tablet 00 AM PC) LABETALOL:8 EDT 83606 alogliptin ALOGLI 29/ TABLET 90 complet ALOGL IPTIN MEDGEN (St 6.25 MG PTIN:1 2019 ed [facility] Oral Tablet 601879 12:00: Medi vasile, ALOGLIPTIN: 00 AM PC) [id number] EDT Aspirin 81 ASPIRI 09/19/ TABLET, 90 complet ASPI RIN MEDGEN (St MG Chewable N:3182 2019 CHEWABLE ed [facility] Tablet 72 12:00: Medical, ASPIRIN:318 00 AM PC) 272 EDT atorvastati ATORVA 09/19/ TABLET 90 complet ATOR VASTATIN MEDGEN (St n 80 MG STATIN 2019 ed [facility] Oral Tablet :79344 12:00: Medi vasile, ATORVASTATI 5 00 AM PC) N:[id number] EDT alogliptin ALOGLI 09/19/ TABLET 90 complet ALOGL IPTIN MEDGEN (St 6.25 MG PTIN:1 2019 ed [facility] Oral Tablet 522843 12:00: Medi vasile, ALOGLIPTIN: 00 AM PC) [id number] EDT Labetalol LABETA 09/19/ TABLET 540 complet LABETA LOL MEDGEN (St hydrochlori LOL:89 2019 ed [facility] de 200 MG 6762 12:00: Medical, Oral Tablet 00 AM PC) LABETALOL:8 EDT 78142 gabapentin GABAPE 29/ CAPSULE 360 complet PAULETTE PENTIN MEDGEN (St 100 MG Oral NTIN:3 2019 ed [facility] Capsule 62209 12:00: Medical, GABAPENTIN: 00 AM PC) 450162 EDT Meclizine MECLIZ 09/19/ TABLET 30 complet MECLIZ INE MEDGEN (St Hydrochlori INE:99 2019 ed [facility] de 12.5 MG 5624 12:00: Medical , Oral Tablet 00 AM PC) MECLIZINE:9 EDT 64891 Amlodipine NORVAS /29/ TABLET 90 complet NORVA [...] Oral Tablet 00 AM PC) MECLIZINE:9 EDT 25793 gabapentin GABAPE 09/19/ CAPSULE 360 complet PAULETTE PENTIN MEDGEN (St 100 MG Oral NTIN:3 2019 ed [facility] Capsule 86718 12:00: Medical, GABAPENTIN: 00 AM PC) 028165 EDT Labetalol LABETA 09/19/ TABLET 540 complet LABETA LOL MEDGEN (St hydrochlori LOL:89 2019 ed [facility] de 200 MG 6762 12:00: Medical, Oral Tablet 00 AM PC) LABETALOL:8 EDT 96433 ONE TOUCH 09/19/ 200 complet ONE TOUCH MEDGEN (St LANCET FINE 2019 ed LANCET FINE [facility] POINT: 12:00: POINT Medical, 00 AM PC) EDT gabapentin GABAPE 29/ CAPSULE 360 complet PAULETTE PENTIN MEDGEN (St 100 MG Oral NTIN:3 2019 ed [facility] Capsule 89913 12:00: Medical, GABAPENTIN: 00 AM PC) 870252 EDT atorvastati ATORVA /29/ TABLET 90 complet ATOR VASTATIN MEDGEN (St n 80 MG STATIN 2019 ed [facility] Oral Tablet :80148 12:00: Medi vasile, ATORVASTATI 5 00 AM PC) N:[id number] EDT Aspirin 81 ASPIRI 09/19/ TABLET, 90 complet ASPI RIN MEDGEN (St MG Chewable N:3182 2020 CHEWABLE ed [facility] Tablet 72 12:00: Medical, ASPIRIN:318 00 AM PC) 272 EDT alogliptin ALOGLI 09/19/ TABLET 90 complet ALOGL IPTIN MEDGEN (St 6.25 MG PTIN:1 2019 ed [facility] Oral Tablet 507634 12:00: Medi vasile, ALOGLIPTIN: 00 AM PC) [id number] EDT ONE TOUCH 09/19/ 200 complet ONE [...] Oral Tablet 00 AM PC) LABETALOL:8 EDT 84105 Meclizine MECLIZ 09/19/ TABLET 30 complet MECLIZ INE MEDGEN (St Hydrochlori INE:99 2019 ed [facility] de 12.5 MG 5624 12:00: Medical , Oral Tablet 00 AM PC) MECLIZINE:9 EDT 85771 Amlodipine NORVAS 09/19/ TABLET 90 complet NORVA SC MEDGEN (St 5 MG Oral C:2124 2019 ed [facility] Tablet 49 12:00: Medical, [Norvasc] 00 AM PC) NORVASC:212 EDT 549 gabapentin GABAPE 09/19/ CAPSULE 360 complet PAULETTE PENTIN MEDGEN (St 100 MG Oral NTIN:3 2019 ed [facility] Capsule 04335 12:00: Medical, GABAPENTIN: 00 AM PC) 314740 EDT Meclizine MECLIZ 29/ TABLET 30 complet MECLIZ INE MEDGEN (St Hydrochlori INE:99 2019 ed [facility] de 12.5 MG 5624 12:00: Medical , Oral Tablet 00 AM PC) MECLIZINE:9 EDT 31531 clopidogrel PLAVIX 09/19/ TABLET 90 complet PLAV IX MEDGEN (St 75 MG Oral :20993 2019 ed [facility] Tablet 9 12:00: Medical, [Plavix] 00 AM PC) PLAVIX:2131 EDT 69 Labetalol LABETA 09/19/ TABLET 540 complet LABETA LOL MEDGEN (St hydrochlori LOL:89 2019 ed [facility] de 200 MG 6762 12:00: Medical, Oral Tablet 00 AM PC) LABETALOL:8 EDT 54995 ONE TOUCH 200 complet ONE TOUCH MEDGEN [...] Oral Tablet 00 AM PC) MECLIZINE:9 EDT 10249 Labetalol LABETA 09/19/ TABLET 540 complet LABETA LOL MEDGEN (St hydrochlori LOL:89 2019 ed [facility] de 200 MG 6762 12:00: Medical, Oral Tablet 00 AM PC) LABETALOL:8 EDT 82390 alogliptin ALOGLI 09/19/ TABLET 90 complet ALOGL IPTIN MEDGEN (St 6.25 MG PTIN:1 2019 ed [facility] Oral Tablet 373765 12:00: Medi vasile, ALOGLIPTIN: 00 AM PC) [id number] EDT Aspirin 81 ASPIRI 09/19/ TABLET, 90 [...] Oral Tablet 00 AM PC) MECLIZINE:9 EDT 51064 Labetalol LABETA 09/19/ TABLET 540 complet LABETA LOL MEDGEN (St hydrochlori LOL:89 2019 ed [facility] de 200 MG 6762 12:00: Medical, Oral Tablet 00 AM PC) LABETALOL:8 EDT 83129 gabapentin GABAPE 09/19/ CAPSULE 360 complet PAULETTE PENTIN MEDGEN (St 100 MG Oral NTIN:3 2019 ed [facility] Capsule 48880 12:00: Medical, GABAPENTIN: 00 AM PC) 065942 EDT atorvastati ATORVA 09/19/ TABLET 90 complet ATOR VASTATIN MEDGEN (St n 80 MG STATIN 2019 ed [facility] Oral Tablet :26812 12:00: Medi vasile, ATORVASTATI 5 00 AM PC) N:[id number] EDT ONE TOUCH complet ONE TOUCH MEDGEN [...] Oral Tablet 00 AM PC) MECLIZINE:9 EDT 22093 gabapentin GABAPE 05/29/ CAPSULE 360 complet PAULETTE PENTIN MEDGEN (St 100 MG Oral NTIN:3 2019 ed [facility] Capsule 68798 12:00: Medical, GABAPENTIN: 00 AM PC) 570278 EDT Aspirin 81 ASPIRI 05/29/ TABLET, 90 complet ASPI RIN MEDGEN (St MG Chewable N:3182 2019 CHEWABLE ed [facility] Tablet 72 12:00: Medical, ASPIRIN:318 00 AM PC) 272 EDT Labetalol LABETA 05/29/ TABLET 540 complet LABETA LOL MEDGEN (St hydrochlori LOL:89 2019 ed [facility] de 200 MG 6762 12:00: Medical, Oral Tablet 00 AM PC) LABETALOL:8 EDT 86943 atorvastati ATORVA 05/29/ TABLET 90 complet ATOR VASTATIN MEDGEN (St n 80 MG STATIN 2020 ed [facility] Oral Tablet :05443 12:00: Medi vasile, ATORVASTATI 5 00 AM PC) N:[id number] EDT Aspirin 81 ASPIRI 05/29/ TABLET, 90 complet ASPI RIN MEDGEN (St MG Chewable N:3182019 CHEWABLE ed [facility] Tablet 72 12:00: Medical, ASPIRIN:318 00 AM PC) 272 EDT gabapentin GABAPE 05/29/ CAPSULE 360 complet PAULETTE PENTIN MEDGEN (St 100 MG Oral NTIN:3 2019 ed [facility] Capsule 81253 12:00: Medical, GABAPENTIN: 00 AM PC) 174868 EDT atorvastati ATORVA 05/29/ TABLET 90 complet ATOR VASTATIN MEDGEN (St n 80 MG STATIN 2020 ed [facility] Oral Tablet :66080 12:00: Medi vasile, ATORVASTATI 5 00 AM PC) N:[id number] EDT alogliptin ALOGLI 05/29/ TABLET 90 complet ALOGL IPTIN MEDGEN (St 6.25 MG PTIN:1 2019 ed [facility] Oral Tablet 893914 12:00: Medi vasile, ALOGLIPTIN: 00 AM PC) [id number] EDT alogliptin ALOGLI 05/29/ TABLET 90 complet ALOGL IPTIN MEDGEN (St 6.25 MG PTIN:1 2019 ed [facility] Oral Tablet 100880 12:00: Medi vasile, ALOGLIPTIN: 00 AM PC) [id number] EDT ONE TOUCH 180 complet ONE TOUCH [...] Oral Tablet 00 AM PC) MECLIZINE:9 EDT 50906 ONE TOUCH 180 complet ONE TOUCH MEDGEN [...] MG PTIN:1 2019 ed [facility] Oral Tablet 968000 12:00: Medi vasile, ALOGLIPTIN: 00 AM PC) [id number] EDT ONE TOUCH 200 complet ONE TOUCH MEDGEN (St LANCET FINE 2019 ed LANCET FINE J [facility] POINT: 12:00: POINT Medical, 00 AM PC) EDT gabapentin GABAPE 09/19/ CAPSULE 360 complet PAULETTE PENTIN MEDGEN (St 100 MG Oral NTIN:3 2019 ed [facility] Capsule 63346 12:00: Medical, GABAPENTIN: 00 AM PC) 145430 EDT ONE TOUCH 200 complet ONE TOUCH MEDGEN (St LANCET FINE 2019 ed LANCET FINE J [facility] POINT: 12:00: POINT Medical, 00 AM PC) EDT Labetalol LABETA 29/ TABLET 540 complet LABETA LOL MEDGEN (St hydrochlori LOL:89 2019 ed [facility] de 200 MG 6762 12:00: Medical, Oral Tablet 00 AM PC) LABETALOL:8 EDT 47229 Aspirin 81 ASPIRI /29/ TABLET, 90 complet [...] Oral Tablet 00 AM PC) LABETALOL:8 EDT 78320 clopidogrel PLAVIX 09/19/ TABLET 90 complet PLAV IX MEDGEN (St 75 MG Oral :2019 ed [facility] Tablet 9 12:00: Medical, [Plavix] 00 AM PC) PLAVIX:2131 EDT 69 atorvastati ATORVA 09/19/ TABLET 90 complet ATOR VASTATIN MEDGEN (St n 80 MG STATIN 2020 ed [facility] Oral Tablet :03889 12:00: Medi vasile, ATORVASTATI 5 00 AM PC) N:[id number] EDT atorvastati ATORVA 09/19/ TABLET 90 complet ATOR VASTATIN MEDGEN (St n 80 MG STATIN 2019 ed [facility] Oral Tablet :80819 12:00: Medi vasile, ATORVASTATI 5 00 AM PC) N:[id number] EDT ONE TOUCH 09/19/ 180 complet ONE TOUCH MEDGEN (St ULTRA TEST 2019 ed ULTRA TEST [facility] STRIP (MAIL 12:00: STRIP (MAIL Medical, ORDER): 00 AM ORDER) PC) EDT alogliptin ALOGLI 09/19/ TABLET 90 complet ALOGL IPTIN MEDGEN (St 6.25 MG PTIN:1 2019 ed [facility] Oral Tablet 765951 12:00: Medi vasile, ALOGLIPTIN: 00 AM PC) [id number] EDT Labetalol LABETA 29/ TABLET 540 complet LABETA LOL MEDGEN (St hydrochlori LOL:89 2019 ed [facility] de 200 MG 6762 12:00: Medical, Oral Tablet 00 AM PC) LABETALOL:8 EDT 48073 gabapentin GABAPE 29/ CAPSULE 360 complet PAULETTE PENTIN MEDGEN (St 100 MG Oral NTIN:3 2019 ed [facility] Capsule 30342 12:00: Medical, GABAPENTIN: 00 AM PC) 425688 EDT alogliptin ALOGLI 29/ TABLET 90 complet ALOGL IPTIN MEDGEN (St 6.25 MG PTIN:1 2019 ed [facility] Oral Tablet 403134 12:00: Medi vasile, ALOGLIPTIN: 00 AM PC) [id number] EDT atorvastati ATORVA 29/ TABLET 90 complet ATOR VASTATIN MEDGEN (St n 80 MG STATIN 2020 ed [facility] Oral Tablet :70314 12:00: Medi vasile, ATORVASTATI 5 00 AM PC) N:[id number] EDT gabapentin GABAPE 09/19/ CAPSULE 360 complet PAULETTE PENTIN MEDGEN (St 100 MG Oral NTIN:3 2019 ed [facility] Capsule 16784 12:00: Medical, GABAPENTIN: 00 AM PC) 207515 EDT atorvastati ATORVA 29/ TABLET 90 complet ATOR VASTATIN MEDGEN (St n 80 MG STATIN 2020 ed [facility] Oral Tablet :36809 12:00: Medi vasile, ATORVASTATI 5 00 AM PC) N:[id number] EDT alogliptin ALOGLI 29/ TABLET 90 complet ALOGL IPTIN MEDGEN (St 6.25 MG PTIN:1 2019 ed [facility] Oral Tablet 183420 12:00: Medi vasile, ALOGLIPTIN: 00 AM PC) [id number] EDT Meclizine MECLIZ 09/19/ TABLET 30 complet MECLIZ INE MEDGEN (St Hydrochlori INE:99 2019 ed [facility] de 12.5 MG 5624 12:00: Medical , Oral Tablet 00 AM PC) MECLIZINE:9 EDT 33469 Aspirin 81 ASPIRI 09/19/ TABLET, 90 complet [...] MG PTIN:1 2019 ed [facility] Oral Tablet 578993 12:00: Medi vasile, ALOGLIPTIN: 00 AM PC) [id number] EDT ONE TOUCH 200 complet ONE TOUCH [...] MG STATIN 2019 ed [facility] Oral Tablet :67992 12:00: Medi vasile, ATORVASTATI 5 00 AM PC) N:[id number] EDT clopidogrel PLAVIX 09/19/ TABLET 90 complet PLAV IX MEDGEN (St 75 MG Oral :2019 ed [facility] Tablet 9 12:00: Medical, [Plavix] 00 AM PC) PLAVIX:2130 EDT 69 Meclizine MECLIZ 05/29/ TABLET 30 complet MECLIZ INE MEDGEN (St Hydrochlori INE:99 2019 ed [facility] de 12.5 MG 5624 12:00: Medical , Oral Tablet 00 AM PC) MECLIZINE:9 EDT 33959 Meclizine MECLIZ 29/ TABLET 30 complet MECLIZ INE MEDGEN (St Hydrochlori INE:99 2019 ed [facility] de 12.5 MG 5624 12:00: Medical , Oral Tablet 00 AM PC) MECLIZINE:9 EDT 80442 Aspirin 81 ASPIRI 09/19/ TABLET, 90 complet [...] MG STATIN 2019 ed [facility] Oral Tablet :20910 12:00: Medi vasile, ATORVASTATI 5 00 AM PC) N:[id number] EDT ONE TOUCH 09/19/ 200 complet ONE [...] Oral Tablet 00 AM PC) MECLIZINE:9 EDT 37967 Meclizine MECLIZ 29/ TABLET 30 complet MECLIZ INE MEDGEN (St Hydrochlori INE:99 2019 ed [facility] de 12.5 MG 5624 12:00: Medical , Oral Tablet 00 AM PC) MECLIZINE:9 EDT 50082 ONE TOUCH complet ONE TOUCH MEDGEN (St [...] PLAV IX MEDGEN (St 75 MG Oral :21928 2019 ed [facility] Tablet 9 12:00: Medical, [Plavix] 00 AM PC) PLAVIX:2130 EDT 69 alogliptin ALOGLI 09/19/ TABLET 90 complet ALOGL IPTIN MEDGEN (St 6.25 MG PTIN:1 2019 ed [facility] Oral Tablet 591722 12:00: Medi vasile, ALOGLIPTIN: 00 AM PC) [id number] EDT Aspirin 81 ASPIRI 09/19/ TABLET, 90 complet ASPI RIN MEDGEN (St MG Chewable N:3182 2019 CHEWABLE ed [facility] Tablet 72 12:00: Medical, ASPIRIN:318 00 AM PC) 272 EDT atorvastati ATORVA 09/19/ TABLET 90 complet ATOR VASTATIN MEDGEN (St n 80 MG STATIN 2019 ed [facility] Oral Tablet :12838 12:00: Medi vasile, ATORVASTATI 5 00 AM PC) N:[id number] EDT GLUCOSE complet GLUCOSE MEDG EN (St [...] LANCETS: complet LANCETS MED GEN (2017 ed [facility] 12:00: Medical, 00 AM PC) EST GLUCOSE [...] LANCETS: complet LANCETS MED GEN (2017 ed [facility] 12:00: Medical, 00 AM PC) EST LANCETS: complet LANCETS MED GEN (2017 ed [facility] 12:00: Medical, 00 AM PC) EST GLUCOSE complet GLUCOSE MEDG EN (St METER TEST 2017 ed METER TEST [facility] IN VITRO 12:00: IN VITRO Medic al, STRIP: 00 AM STRIP PC) EST LANCETS: complet LANCETS MED GEN (2017 ed [facility] 12:00: Medical, 00 AM PC) EST GLUCOSE complet GLUCOSE MEDG EN (St METER TEST 2017 ed METER TEST [facility] IN VITRO 12:00: IN VITRO Medic al, STRIP: 00 AM STRIP PC) EST LANCETS: complet LANCETS MED GEN (2017 ed [facility] 12:00: Medical, 00 AM PC) EST GLUCOSE [...] name Policy type Policy ID Covered Covered democrat's Policy P dana / Coverage democrat ID relationship to [place] Inf ormation type [place] [employer] MEDICAID [id number] SP [id number] [facility] [id number] [place] MED[place] OF [id number] [facility] [id number] [employer] MEDICAID [id number] SP [id number] HMO MEDICAID W [id number] 01 [id number] [facility] IP DRG W [id number] HMO MEDICAID W [id number] 01 [id number] 89 [facility] OP Y W [id number] Problems, Conditions, and Diagnoses Code Display Name Description Problem Type Effective Data Dates Source(s) D63.1 Anemia in chronic ANEMIA IN CHRONIC Problem 12/09/2019 MEDGEN (St kidney disease KIDNEY DISEASE 12:00:00 AM [facility], ) I50.30 Unspecified UNSPECIFIED Problem 12/09/2019 MEDGEN (St diastolic DIASTOLIC 12:00:00 AM [facility] (congestive) heart (CONGESTIVE) HEART [facility] Medical, ) failure FAILURE N30.00 Acute cystitis ACUTE CYSTITIS Problem 12/09/2019 MEDGEN (St without hematuria WITHOUT HEMATURIA 12:00:00 AM [facility], ) E11.319 Type 2 diabetes TYPE 2 DIABETES Problem 12/09/2019 MEDG EN (St mellitus with MELLITUS WITH 12:00:00 AM [facility] unspecified UNSPECIFIED [facility], ) 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 D63.1 Anemia in chronic ANEMIA IN CHRONIC Problem 12/09/2019 [facility] (St kidney disease KIDNEY DISEASE 12:00:00 AM [facility], ) I50.30 Unspecified UNSPECIFIED Problem 12/09/2019 [facility] (St diastolic DIASTOLIC 12:00:00 AM [facility] (congestive) heart (CONGESTIVE) HEART [facility], ) failure FAILURE N30.00 Acute cystitis [...] AM [facility] (congestive) heart (CONGESTIVE) HEART EDT [facility]) failure FAILURE I50.20 Unspecified UNSPECIFIED Problem 11/25/2019 [facility] (St systolic SYSTOLIC 12:00:00 AM [facility] (congestive) heart (CONGESTIVE) HEART EDT [facility], ) failure FAILURE I50.20 Unspecified UNSPECIFIED Problem 11/25/2019 [facility] (St systolic SYSTOLIC 12:00:00 AM [facility] (congestive) heart (CONGESTIVE) HEART EDT [facility]) failure FAILURE I50.20 Unspecified UNSPECIFIED Problem 11/25/2019 [...] FOOT Problem 11/06/2019 [facility] (St 12:00:00 AM [facility] T [facility]) M79.671 Pain in right foot PAIN IN RIGHT FOOT Problem 0 [facility] (St 12:00:00 AM [facility]) R60.0 Localized edema LOCALIZED EDEMA Problem 11/06/2019 MEDG EN (St 12:00:00 AM [facility]) E55.9 Vitamin D VITAMIN D Problem 11/06/2019 [facility] (St deficiency, DEFICIENCY, 12:00:00 AM [facility] unspecified UNSPECIFIED [facility], ) B35.1 Tinea unguium TINEA UNGUIUM Problem 11/06/2019 [facility] ( St 12:00:00 AM [facility], ) E11.40 Type 2 diabetes TYPE 2 DIABETES Problem 11/06/2019 MEDG EN (St mellitus with MELLITUS WITH 12:00:00 AM [facility] diabetic DIABETIC [facility]) neuropathy, NEUROPATHY, unspecified UNSPECIFIED M79.672 Pain in left foot PAIN IN LEFT FOOT Problem 11/06/2019 [facility] (St 12:00:00 AM [facility]) M79.671 Pain in right foot PAIN IN RIGHT FOOT Problem 0 [facility] (St 12:00:00 AM [facility], ) R60.0 Localized edema LOCALIZED EDEMA Problem 11/06/2019 MEDG EN (St 12:00:00 AM [facility]) E55.9 Vitamin D VITAMIN D Problem 11/06/2019 [facility] (St deficiency, DEFICIENCY, 12:00:00 AM [facility] unspecified UNSPECIFIED [facility]) B35.1 Tinea unguium TINEA UNGUIUM Problem 11/06/2019 [facility] ( St 12:00:00 AM [facility], ) E11.40 Type 2 diabetes TYPE 2 DIABETES Problem 11/06/2019 MEDG EN (St mellitus with MELLITUS WITH 12:00:00 AM [facility] diabetic DIABETIC [facility], ) neuropathy, NEUROPATHY, unspecified UNSPECIFIED M79.672 Pain in left foot PAIN IN LEFT FOOT Problem 11/06/2019 MEDGEN (St 12:00:00 AM [facility]) M79.671 Pain in right foot PAIN IN RIGHT FOOT Problem 0 MEDGEN (St 12:00:00 AM [facility], ) R60.0 Localized edema LOCALIZED EDEMA Problem 11/06/2019 MEDG EN (St 12:00:00 AM [facility]) E55.9 Vitamin D VITAMIN D Problem 11/06/2019 MEDGEN (St deficiency, DEFICIENCY, 12:00:00 AM [facility] unspecified UNSPECIFIED [facility]) B35.1 Tinea unguium TINEA UNGUIUM Problem 11/06/2019 MEDGEN ( St 12:00:00 AM [facility]) E11.40 Type 2 diabetes TYPE 2 DIABETES Problem 11/06/2019 MEDG EN (St mellitus with MELLITUS WITH 12:00:00 AM [facility] diabetic DIABETIC [facility]) neuropathy, NEUROPATHY, unspecified UNSPECIFIED M79.672 Pain in left foot PAIN IN LEFT FOOT Problem 11/06/2019 MEDGEN (St 12:00:00 AM [facility]) M79.671 Pain in right foot PAIN IN RIGHT FOOT Problem 0 MEDGEN (St 12:00:00 AM [facility]) R60.0 Localized edema LOCALIZED EDEMA Problem 11/06/2019 MEDG EN (St 12:00:00 AM [facility]) E55.9 Vitamin D VITAMIN D Problem 11/06/2019 MEDGEN (St deficiency, DEFICIENCY, 12:00:00 AM [facility]) B35.1 Tinea unguium TINEA UNGUIUM Problem 11/06/2019 MEDGEN ( St 12:00:00 AM [facility]) E11.40 Type 2 diabetes TYPE 2 DIABETES Problem 11/06/2019 MEDG EN (St mellitus with MELLITUS WITH 12:00:00 AM [facility] diabetic DIABETIC [facility]) neuropathy, NEUROPATHY, unspecified UNSPECIFIED M79.672 Pain in left foot PAIN IN LEFT FOOT Problem 11/06/2019 MEDGEN (St 12:00:00 AM [facility]) M79.671 Pain in right foot PAIN IN RIGHT FOOT Problem 0 MEDGEN (St 12:00:00 AM [facility]) R60.0 Localized edema LOCALIZED EDEMA Problem 11/06/2019 MEDG EN (St 12:00:00 AM [facility]) E55.9 Vitamin D VITAMIN D Problem 11/06/2019 MEDGEN (St deficiency, DEFICIENCY, 12:00:00 AM [facility]) B35.1 Tinea unguium TINEA UNGUIUM Problem 11/06/2019 MEDGEN ( St 12:00:00 AM [facility]) E11.40 Type 2 diabetes TYPE 2 DIABETES Problem 11/06/2019 MEDG EN (St mellitus with MELLITUS WITH 12:00:00 AM [facility] diabetic DIABETIC [facility]) neuropathy, NEUROPATHY, unspecified UNSPECIFIED M79.672 Pain in left foot PAIN IN LEFT FOOT Problem 11/06/2019 MEDGEN (St 12:00:00 AM [facility]) M79.671 Pain in right foot PAIN IN RIGHT FOOT Problem 0 MEDGEN (St 12:00:00 AM [facility]) R60.0 Localized edema LOCALIZED EDEMA Problem 11/06/2019 MEDG EN (St 12:00:00 AM [facility]) E55.9 Vitamin D VITAMIN D Problem 11/06/2019 MEDGEN (St deficiency, DEFICIENCY, 12:00:00 AM [facility]) B35.1 Tinea unguium TINEA UNGUIUM Problem 11/06/2019 MEDGEN ( St 12:00:00 AM [facility]) E11.40 Type 2 diabetes TYPE 2 DIABETES Problem 11/06/2019 MEDG EN (St mellitus with MELLITUS WITH 12:00:00 AM [facility] diabetic DIABETIC [facility]) neuropathy, NEUROPATHY, unspecified UNSPECIFIED M79.672 Pain in left foot PAIN IN LEFT FOOT Problem 11/06/2019 MEDGEN (St 12:00:00 AM [facility]) M79.671 Pain in right foot PAIN IN RIGHT FOOT Problem 0 MEDGEN (St 12:00:00 AM [facility]) R60.0 Localized edema LOCALIZED EDEMA Problem 11/06/2019 MEDG EN (St 12:00:00 AM [facility]) E55.9 Vitamin D VITAMIN D Problem 11/06/2019 MEDGEN (St deficiency, DEFICIENCY, 12:00:00 AM [facility] B35.1 Tinea unguium TINEA UNGUIUM Problem 11/06/2019 MEDGEN ( St 12:00:00 AM [facility]) E11.40 Type 2 diabetes TYPE 2 DIABETES Problem 11/06/2019 MEDG EN (St mellitus with MELLITUS WITH 12:00:00 AM [facility] diabetic DIABETIC [facility], ) neuropathy, NEUROPATHY, unspecified UNSPECIFIED M79.672 Pain in left foot PAIN IN LEFT FOOT Problem 11/06/2019 MEDGEN (St 12:00:00 AM [facility], ) M79.671 Pain in right foot PAIN IN RIGHT FOOT Problem 0 MEDGEN (St 12:00:00 AM [facility], ) R60.0 Localized edema LOCALIZED EDEMA Problem 11/06/2019 MEDG EN (St 12:00:00 AM [facility], ) E55.9 Vitamin D VITAMIN D Problem 11/06/2019 MEDGEN (St deficiency, DEFICIENCY, 12:00:00 AM [facility] B35.1 Tinea unguium TINEA UNGUIUM Problem 11/06/2019 MEDGEN ( St 12:00:00 AM [facility], ) E11.40 Type 2 diabetes TYPE 2 DIABETES Problem 11/06/2019 MEDG EN (St mellitus with MELLITUS WITH 12:00:00 AM [facility] diabetic DIABETIC [facility], ) neuropathy, NEUROPATHY, unspecified UNSPECIFIED M79.672 Pain in left foot PAIN IN LEFT FOOT Problem 11/06/2019 MEDGEN (St 12:00:00 AM [facility], ) M79.671 Pain in right foot PAIN IN RIGHT FOOT Problem 0 MEDGEN (St 12:00:00 AM [facility], ) R60.0 Localized edema LOCALIZED EDEMA Problem 11/06/2019 MEDG EN (St 12:00:00 AM [facility], ) M79.672 Pain in left foot PAIN IN LEFT FOOT Problem 11/06/2019 MEDGEN (St 12:00:00 AM [facility]) M79.671 Pain in right foot PAIN IN RIGHT FOOT Problem 0 MEDGEN (St 12:00:00 AM [facility], ) R60.0 Localized edema LOCALIZED EDEMA Problem 11/06/2019 MEDG EN (St 12:00:00 AM [facility]) E55.9 Vitamin D VITAMIN D Problem 11/06/2019 MEDGEN (St deficiency, DEFICIENCY, 12:00:00 AM [facility] B35.1 Tinea unguium TINEA UNGUIUM Problem 11/06/2019 MEDGEN ( St 12:00:00 AM [facility]) E11.40 Type 2 diabetes TYPE 2 DIABETES Problem 11/06/2019 MEDG EN (St mellitus with MELLITUS WITH 12:00:00 AM [facility]) neuropathy, NEUROPATHY, unspecified UNSPECIFIED M79.672 Pain in left foot PAIN IN LEFT FOOT Problem 11/06/2019 MEDGEN (St 12:00:00 AM [facility]) M79.671 Pain in right foot PAIN IN RIGHT FOOT Problem 0 MEDGEN (St 12:00:00 AM [facility]) R60.0 Localized edema LOCALIZED EDEMA Problem 11/06/2019 MEDG EN (St 12:00:00 AM [facility]) E55.9 Vitamin D VITAMIN D Problem 11/06/2019 MEDGEN (St deficiency, DEFICIENCY, 12:00:00 AM [facility]) B35.1 Tinea unguium TINEA UNGUIUM Problem 11/06/2019 MEDGEN ( St 12:00:00 AM [facility]) E11.40 Type 2 diabetes TYPE 2 DIABETES Problem 11/06/2019 MEDG EN (St mellitus with MELLITUS WITH 12:00:00 AM [facility] diabetic [facility]) neuropathy, NEUROPATHY, unspecified UNSPECIFIED E55.9 Vitamin D VITAMIN D Problem 11/06/2019 MEDGEN (St deficiency, DEFICIENCY, 12:00:00 AM [facility] B35.1 Tinea unguium TINEA UNGUIUM Problem 11/06/2019 MEDGEN ( St 12:00:00 AM [facility]) E11.40 Type 2 diabetes TYPE 2 DIABETES Problem 11/06/2019 MEDG EN (St mellitus with MELLITUS WITH 12:00:00 AM [facility] diabetic DIABETIC [facility]) neuropathy, [...] COUGH Problem 10/04/2019 MEDGEN (St 12:00:00 AM [facility], ) E87.0 Hyperosmolality and HYPEROSMOLALITY AND Problem MEDGEN (St hypernatremia HYPERNATREMIA 12:00:00 AM [facility], ) N17.9 Acute kidney ACUTE [...] Problem MEDGEN (St hypernatremia HYPERNATREMIA 12:00:00 AM [facility] EDT [facility], ) N17.9 Acute kidney ACUTE KIDNEY Problem 09/20/2019 MEDGEN (St failure, FAILURE, 12:00:00 AM [facility] unspecified UNSPECIFIED [facility], ) E87.0 Hyperosmolality and HYPEROSMOLALITY AND Problem MEDGEN (St hypernatremia HYPERNATREMIA 12:00:00 AM [facility] EDT [facility] [...] 020 MEDGEN (St hypernatremia HYPERNATREMIA 12:00:00 AM [facility]'s EDT [facility], ) N17.9 Acute kidney ACUTE KIDNEY Problem 09/20/2019 MEDGEN (St failure, FAILURE, 12:00:00 AM [facility] unspecified UNSPECIFIED [facility], ) E87.0 Hyperosmolality and HYPEROSMOLALITY AND Problem 020 MEDGEN (St hypernatremia HYPERNATREMIA 12:00:00 AM [facility]'s T [facility], ) N17.9 Acute kidney ACUTE KIDNEY Problem 09/20/2019 MEDGEN (St failure, FAILURE, 12:00:00 AM [facility] unspecified UNSPECIFIED [facility], ) E87.0 Hyperosmolality and HYPEROSMOLALITY AND Problem 020 MEDGEN (St hypernatremia HYPERNATREMIA 12:00:00 AM [facility], ) N17.9 Acute kidney ACUTE KIDNEY Problem 09/20/2019 MEDGEN (St failure, FAILURE, 12:00:00 AM [facility]' unspecified UNSPECIFIED [facility], ) E87.0 Hyperosmolality and HYPEROSMOLALITY AND Problem 020 MEDGEN (St hypernatremia HYPERNATREMIA 12:00:00 AM [facility], ) N17.9 Acute kidney ACUTE KIDNEY Problem 09/20/2019 MEDGEN (St failure, FAILURE, 12:00:00 AM [facility] unspecified UNSPECIFIED [facility], ) R42 Dizziness and DIZZINESS AND Problem 08/26/2019 MEDGEN ( St giddiness GIDDINESS 12:00:00 AM [facility]'s T [facility], ) R42 Dizziness and DIZZINESS AND Problem 08/26/2019 MEDGEN ( St [place] GIDDINESS 12:00:00 AM [facility]'s T [facility], ) R42 Dizziness and DIZZINESS AND Problem 08/26/2019 MEDGEN ( St [place] GIDDINESS 12:00:00 AM [facility]'s T [facility], ) R42 Dizziness and DIZZINESS AND Problem 08/26/2019 MEDGEN ( St g[place] GIDDINESS 12:00:00 AM [facility]'s T [facility], ) R42 Dizziness and DIZZINESS AND Problem 08/26/2019 MEDGEN ( St g[place] GIDDINESS 12:00:00 AM [facility], ) R42 Dizziness and DIZZINESS AND Problem 08/26/2019 MEDGEN ( St g[place] GIDDINESS 12:00:00 AM [facility], ) R42 Dizziness and DIZZINESS AND Problem 08/26/2019 MEDGEN ( St [place] GIDDINESS 12:00:00 AM [facility], ) R42 Dizziness and DIZZINESS AND Problem 08/26/2019 MEDGEN ( St [place] GIDDINESS 12:00:00 AM [facility], ) R42 Dizziness and DIZZINESS AND Problem 08/26/2019 MEDGEN ( St [place] GIDDINESS 12:00:00 AM [facility], ) R42 Dizziness and DIZZINESS AND Problem 08/26/2019 MEDGEN ( St [facility] GIDDINESS 12:00:00 AM [facility], ) R42 Dizziness and DIZZINESS AND Problem 08/26/2019 MEDGEN ( St [facility] GIDDINESS 12:00:00 AM [facility], ) R42 Dizziness and DIZZINESS AND Problem 08/26/2019 MEDGEN ( St [facility] GIDDINESS 12:00:00 AM [facility], ) R42 Dizziness and DIZZINESS AND Problem 08/26/2019 MEDGEN ( St g[facility] GIDDINESS 12:00:00 AM [facility], ) R42 Dizziness and DIZZINESS AND Problem 08/26/2019 MEDGEN ( St gidd[facility] GIDDINESS 12:00:00 AM [facility], ) N18.3 Chronic kidney CHRONIC KIDNEY Problem 04/16/2019 MEDGEN (St disease, stage 3 DISEASE, STAGE 3 12:00:00 AM [facility] (moderate) (MODERATE) [facility], ) N18.3 Chronic kidney CHRONIC KIDNEY Problem 04/16/2019 MEDGEN (St disease, stage 3 DISEASE, STAGE 3 12:00:00 AM J [facility] (moderate) (MODERATE) [facility] Medical, ) N18.3 Chronic kidney CHRONIC KIDNEY [...] other MELLITUS WITH OTHER 12:00:0 0 AM [facility] diabetic DIABETIC [facility], ) neurological NEUROLOGICAL complication COMPLICATION E11.49 Type 2 diabetes TYPE 2 DIABETES Problem 12/17/2018 MEDG EN (St mellitus with other MELLITUS WITH OTHER 12:00:0 0 AM [facility] diabetic DIABETIC [facility], ) neurological NEUROLOGICAL complication COMPLICATION E11.49 Type 2 diabetes TYPE 2 DIABETES Problem 12/17/2018 MEDG EN (St mellitus with other MELLITUS WITH OTHER 12:00:0 0 AM [facility] diabetic DIABETIC [facility], ) neurological NEUROLOGICAL complication COMPLICATION E11.49 Type 2 diabetes TYPE 2 DIABETES Problem 12/17/2018 MEDG EN (St mellitus with other MELLITUS WITH OTHER 12:00:0 0 AM [facility] diabetic DIABETIC [facility], ) neurological NEUROLOGICAL complication COMPLICATION H90.0 Conductive hearing CONDUCTIVE HEARING Problem 9 MEDGEN (St loss, bilateral LOSS, BILATERAL 12:00:00 AM [facility], ) H90.0 Conductive hearing CONDUCTIVE HEARING Problem 9 MEDGEN (St loss, bilateral LOSS, BILATERAL 12:00:00 AM [facility], ) H90.0 Conductive hearing CONDUCTIVE HEARING Problem 9 MEDGEN (St loss, bilateral LOSS, BILATERAL 12:00:00 AM [facility], ) H90.0 Conductive hearing CONDUCTIVE HEARING Problem 9 MEDGEN (St loss, bilateral LOSS, BILATERAL 12:00:00 AM [facility], ) H90.0 Conductive hearing CONDUCTIVE HEARING Problem 9 MEDGEN (St loss, bilateral LOSS, BILATERAL 12:00:00 AM [facility], ) H90.0 Conductive hearing CONDUCTIVE HEARING Problem 9 MEDGEN (St loss, bilateral LOSS, BILATERAL 12:00:00 AM [facility], ) H90.0 Conductive hearing CONDUCTIVE HEARING Problem 9 MEDGEN (St loss, bilateral LOSS, BILATERAL 12:00:00 AM [facility], ) H90.0 Conductive hearing CONDUCTIVE HEARING Problem 9 MEDGEN (St loss, bilateral LOSS, BILATERAL 12:00:00 AM [facility], ) H90.0 Conductive hearing CONDUCTIVE HEARING Problem 9 MEDGEN (St loss, bilateral LOSS, BILATERAL 12:00:00 AM [facility], ) H90.0 Conductive hearing CONDUCTIVE HEARING Problem 9 MEDGEN (St loss, bilateral LOSS, BILATERAL 12:00:00 AM [facility], ) H90.0 Conductive hearing CONDUCTIVE HEARING Problem 9 MEDGEN (St loss, bilateral LOSS, BILATERAL 12:00:00 AM [facility], ) H90.0 Conductive hearing CONDUCTIVE HEARING Problem 9 MEDGEN (St loss, bilateral LOSS, BILATERAL 12:00:00 AM [facility], ) H90.0 Conductive hearing CONDUCTIVE HEARING Problem 9 MEDGEN (St loss, bilateral LOSS, BILATERAL 12:00:00 AM [facility], ) H90.0 Conductive hearing CONDUCTIVE HEARING Problem 9 MEDGEN (St loss, bilateral LOSS, BILATERAL 12:00:00 AM [facility], ) M25.552 Pain in left hip PAIN IN LEFT HIP Problem 07/20/2018 ME DGEN (St 12:00:00 AM [facility], ) M25.552 Pain in left hip PAIN IN LEFT HIP Problem 07/20/2018 ME DGEN (St 12:00:00 AM [facility], ) M25.552 Pain in left hip PAIN IN LEFT HIP Problem 07/20/2018 ME DGEN (St 12:00:00 AM [facility], ) M25.552 Pain in left hip PAIN IN LEFT HIP Problem 07/20/2018 ME DGEN (St 12:00:00 AM [facility], ) M25.552 Pain in left hip PAIN IN LEFT HIP Problem 07/20/2018 ME DGEN (St 12:00:00 AM [facility], ) M25.552 Pain in left hip PAIN IN LEFT HIP Problem 07/20/2018 ME DGEN (St 12:00:00 AM [facility], ) M25.552 Pain in left hip PAIN IN LEFT HIP Problem 07/20/2018 ME DGEN (St 12:00:00 AM [facility], ) M25.552 Pain in left hip PAIN IN LEFT HIP Problem 07/20/2018 ME DGEN (St 12:00:00 AM [facility], ) M25.552 Pain in left hip PAIN IN LEFT HIP Problem 07/20/2018 ME DGEN (St 12:00:00 AM [facility], ) M25.552 Pain in left hip PAIN IN LEFT HIP Problem 07/20/2018 ME DGEN (St 12:00:00 AM [facility], ) M25.552 Pain in left hip PAIN IN LEFT HIP Problem 07/20/2018 ME DGEN (St 12:00:00 AM [facility], ) M25.552 Pain in left hip PAIN IN LEFT HIP Problem 07/20/2018 ME DGEN (St 12:00:00 AM [facility], ) M25.552 Pain in left hip PAIN IN LEFT HIP Problem 07/20/2018 ME DGEN (St 12:00:00 AM [facility], ) M25.552 Pain in left hip PAIN IN LEFT HIP Problem 07/20/2018 ME DGEN (St 12:00:00 AM [facility], ) R80.9 Proteinuria, PROTEINURIA, Problem 01/25/2018 MEDGEN (St unspecified UNSPECIFIED 12:00:00 AM [facility], ) R80.9 Proteinuria, PROTEINURIA, Problem 01/25/2018 MEDGEN (St unspecified UNSPECIFIED 12:00:00 AM [facility], ) R80.9 Proteinuria, PROTEINURIA, Problem 01/25/2018 MEDGEN (St unspecified UNSPECIFIED 12:00:00 AM [facility], ) R80.9 Proteinuria, PROTEINURIA, Problem 01/25/2018 MEDGEN (St unspecified UNSPECIFIED 12:00:00 AM [facility], ) R80.9 Proteinuria, PROTEINURIA, Problem 01/25/2018 MEDGEN (St unspecified UNSPECIFIED 12:00:00 AM [facility], ) R80.9 Proteinuria, PROTEINURIA, Problem 01/25/2018 MEDGEN (St unspecified UNSPECIFIED 12:00:00 AM [facility], ) R80.9 Proteinuria, PROTEINURIA, Problem 01/25/2018 MEDGEN (St unspecified UNSPECIFIED 12:00:00 AM [facility], ) R80.9 Proteinuria, PROTEINURIA, Problem 01/25/2018 MEDGEN (St unspecified UNSPECIFIED 12:00:00 AM [facility], ) R80.9 Proteinuria, PROTEINURIA, Problem 01/25/2018 MEDGEN (St unspecified UNSPECIFIED 12:00:00 AM [facility], ) R80.9 Proteinuria, PROTEINURIA, Problem 01/25/2018 MEDGEN (St unspecified UNSPECIFIED 12:00:00 AM [facility], ) R80.9 Proteinuria, PROTEINURIA, Problem 01/25/2018 MEDGEN (St unspecified UNSPECIFIED 12:00:00 AM [facility], ) R80.9 Proteinuria, PROTEINURIA, Problem 01/25/2018 MEDGEN (St unspecified UNSPECIFIED 12:00:00 AM [facility], ) R80.9 Proteinuria, PROTEINURIA, Problem 01/25/2018 MEDGEN (St unspecified UNSPECIFIED 12:00:00 AM [facility], ) R80.9 Proteinuria, PROTEINURIA, Problem 01/25/2018 MEDGEN (St unspecified UNSPECIFIED 12:00:00 AM [facility]) R94.4 Abnormal results of ABNORMAL RESULTS OF Problem 018 MEDGEN (St kidney function KIDNEY FUNCTION 12:00:00 AM Tony n's studies [facility], ) R79.89 Other specified OTHER SPECIFIED Problem 01/19/2018 MEDG EN (St abnormal findings ABNORMAL FINDINGS 12:00:00 AM [facility] of blood chemistry OF BLOOD CHEMISTRY [facility], ) E11.4 Type 2 diabetes TYPE 2 DIABETES Problem 01/19/2018 MEDG EN (St mellitus with MELLITUS WITH 12:00:00 AM [facility] neurological NEUROLOGICAL [facility]) complications COMPLICATIONS R94.4 Abnormal results of ABNORMAL RESULTS OF Problem 018 MEDGEN (St kidney function KIDNEY FUNCTION 12:00:00 AM Tony n's studies STUDIES [facility], ) R79.89 Other specified OTHER SPECIFIED Problem 01/19/2018 MEDG EN (St abnormal findings ABNORMAL FINDINGS 12:00:00 AM [facility] of blood chemistry OF BLOOD CHEMISTRY [facility], ) E11.4 Type 2 diabetes TYPE 2 DIABETES Problem 01/19/2018 MEDG EN (St mellitus with MELLITUS WITH 12:00:00 AM [facility] neurological NEUROLOGICAL [facility]) complications COMPLICATIONS R94.4 Abnormal results of ABNORMAL RESULTS OF Problem 018 MEDGEN (St kidney function KIDNEY FUNCTION 12:00:00 AM Tony n's studies STUDIES [facility], ) R79.89 Other specified OTHER SPECIFIED Problem 01/19/2018 MEDG EN (St abnormal findings ABNORMAL FINDINGS 12:00:00 AM [facility] of blood chemistry OF BLOOD CHEMISTRY [facility], ) E11.4 Type 2 diabetes TYPE 2 DIABETES Problem 01/19/2018 MEDG EN (St mellitus with MELLITUS WITH 12:00:00 AM [facility] neurological NEUROLOGICAL [facility]) complications COMPLICATIONS R94.4 Abnormal results of ABNORMAL RESULTS OF Problem 018 MEDGEN (St kidney function KIDNEY FUNCTION 12:00:00 AM Tony n's studies STUDIES [facility], ) R79.89 Other specified OTHER SPECIFIED Problem 01/19/2018 MEDG EN (St abnormal findings ABNORMAL FINDINGS 12:00:00 AM [facility] of blood chemistry OF BLOOD CHEMISTRY [facility], ) E11.4 Type 2 diabetes TYPE 2 DIABETES Problem 01/19/2018 MEDG EN (St mellitus with MELLITUS WITH 12:00:00 AM [facility] neurological NEUROLOGICAL [facility]) complications COMPLICATIONS R94.4 Abnormal results of ABNORMAL RESULTS OF Problem 018 MEDGEN (St kidney function KIDNEY FUNCTION 12:00:00 AM Tony n's studies STUDIES [facility], ) R79.89 Other specified OTHER SPECIFIED Problem 01/19/2018 MEDG EN (St abnormal findings ABNORMAL FINDINGS 12:00:00 AM [facility] of blood chemistry OF BLOOD CHEMISTRY [facility], ) E11.4 Type 2 diabetes TYPE 2 DIABETES Problem 01/19/2018 MEDG EN (St mellitus with MELLITUS WITH 12:00:00 AM [facility] neurological NEUROLOGICAL [facility]) complications COMPLICATIONS R94.4 Abnormal results of ABNORMAL RESULTS OF Problem 018 MEDGEN (St kidney function KIDNEY FUNCTION 12:00:00 AM Tony n's studies STUDIES [facility], ) R79.89 Other specified OTHER SPECIFIED Problem 01/19/2018 MEDG EN (St abnormal findings ABNORMAL FINDINGS 12:00:00 AM [facility] of blood chemistry OF BLOOD CHEMISTRY [facility], ) E11.4 Type 2 diabetes TYPE 2 DIABETES Problem 01/19/2018 MEDG EN (St mellitus with MELLITUS WITH 12:00:00 AM [facility] neurological NEUROLOGICAL [facility]) complications COMPLICATIONS R94.4 Abnormal results of ABNORMAL RESULTS OF Problem 018 MEDGEN (St kidney function KIDNEY FUNCTION 12:00:00 AM [facility]'s studies STUDIES [facility], ) R79.89 Other specified OTHER SPECIFIED Problem 01/19/2018 MEDG EN (St abnormal findings ABNORMAL FINDINGS 12:00:00 AM [facility] of blood chemistry OF BLOOD CHEMISTRY [facility]) E11.4 Type 2 diabetes TYPE 2 DIABETES Problem 01/19/2018 MEDG EN (St mellitus with MELLITUS WITH 12:00:00 AM [facility] neurological NEUROLOGICAL T [facility], [facility]) complications COMPLICATIONS R94.4 Abnormal results of ABNORMAL RESULTS OF Problem 018 MEDGEN (St kidney function KIDNEY FUNCTION 12:00:00 AM Tony n's studies STUDIES [facility], ) R79.89 Other specified OTHER SPECIFIED Problem 01/19/2018 MEDG EN (St abnormal findings ABNORMAL FINDINGS 12:00:00 AM [facility] of blood chemistry OF BLOOD CHEMISTRY [facility]) E11.4 Type 2 diabetes TYPE 2 DIABETES Problem 01/19/2018 MEDG EN (St mellitus with MELLITUS WITH 12:00:00 AM [facility] neurological NEUROLOGICAL [facility]) complications COMPLICATIONS R94.4 Abnormal results of ABNORMAL RESULTS OF Problem 018 MEDGEN (St kidney function KIDNEY FUNCTION 12:00:00 AM Tony n's studies STUDIES [facility], ) R94.4 Abnormal results of ABNORMAL RESULTS OF Problem 018 MEDGEN (St kidney function KIDNEY FUNCTION 12:00:00 AM Tony n's studies STUDIES [facility], ) R79.89 Other specified OTHER SPECIFIED Problem 01/19/2018 MEDG EN (St abnormal findings ABNORMAL FINDINGS 12:00:00 AM [facility] of blood chemistry OF BLOOD CHEMISTRY [facility]) E11.4 Type 2 diabetes TYPE 2 DIABETES Problem 01/19/2018 MEDG EN (St mellitus with MELLITUS WITH 12:00:00 AM [facility] neurological NEUROLOGICAL [facility], [facility]) complications COMPLICATIONS R94.4 Abnormal results of ABNORMAL RESULTS OF Problem 018 MEDGEN (St kidney function KIDNEY FUNCTION 12:00:00 AM Tony n's studies STUDIES [facility], ) R79.89 Other specified OTHER SPECIFIED Problem 01/19/2018 MEDG EN (St abnormal findings ABNORMAL FINDINGS 12:00:00 AM [facility] of blood chemistry OF BLOOD CHEMISTRY [facility], ) E11.4 Type 2 diabetes TYPE 2 DIABETES Problem 01/19/2018 MEDG EN (St mellitus with MELLITUS WITH 12:00:00 AM Dony's neurological NEUROLOGICAL EDT Medical, P C) complications COMPLICATIONS R94.4 Abnormal results of ABNORMAL RESULTS OF Problem 018 MEDGEN (St kidney function KIDNEY FUNCTION 12:00:00 AM Tony n's studies STUDIES [facility], ) R79.89 Other specified OTHER SPECIFIED Problem 01/19/2018 MEDG EN (St abnormal findings ABNORMAL FINDINGS 12:00:00 AM Dony's of blood chemistry OF BLOOD CHEMISTRY [facility], ) E11.4 Type 2 diabetes TYPE 2 DIABETES Problem 01/19/2018 MEDG EN (St mellitus with MELLITUS WITH 12:00:00 AM Dony's neurological NEUROLOGICAL EDT Medical, P C) complications COMPLICATIONS R94.4 Abnormal results of ABNORMAL RESULTS OF Problem 018 MEDGEN (St kidney function KIDNEY FUNCTION 12:00:00 AM Tony n's studies STUDIES [facility], ) R79.89 Other specified OTHER SPECIFIED Problem 01/19/2018 MEDG EN (St abnormal findings ABNORMAL FINDINGS 12:00:00 AM Dony's of blood chemistry OF BLOOD CHEMISTRY [facility], ) E11.4 Type 2 diabetes TYPE 2 DIABETES Problem 01/19/2018 MEDG EN (St mellitus with MELLITUS WITH 12:00:00 AM Dony's neurological NEUROLOGICAL EDT Medical, P C) complications COMPLICATIONS R94.4 Abnormal results of ABNORMAL RESULTS OF Problem 018 MEDGEN (St kidney function KIDNEY FUNCTION 12:00:00 AM Tony n's studies STUDIES [facility], ) R79.89 Other specified OTHER SPECIFIED Problem 01/19/2018 MEDG EN (St abnormal findings ABNORMAL FINDINGS 12:00:00 AM Dony's of blood chemistry OF BLOOD CHEMISTRY [facility], ) E11.4 Type 2 diabetes TYPE 2 DIABETES Problem 01/19/2018 MEDG EN (St mellitus with MELLITUS WITH 12:00:00 AM Dony's neurological NEUROLOGICAL EDT Medical, P C) complications COMPLICATIONS R94.4 Abnormal results of ABNORMAL RESULTS OF Problem 018 MEDGEN (St kidney function KIDNEY FUNCTION 12:00:00 AM Tony n's studies STUDIES [facility], ) R79.89 Other specified OTHER SPECIFIED Problem 01/19/2018 MEDG EN (St abnormal findings ABNORMAL FINDINGS 12:00:00 AM Dony's of blood chemistry OF BLOOD CHEMISTRY [facility], ) E11.4 Type 2 diabetes TYPE [...] MELLITUS WITH 12:00:00 AM Dony's hyperglycemia HYPERGLYCEMIA [facility], ) Z86.73 Personal history of PERSONAL HISTORY OF Problem 018 MEDGEN (St transient ischemic TRANSIENT ISCHEMIC 12:00:00 AM Dony's attack (TIA), and ATTACK (TIA), AND [facility], ) cerebral infarction 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 E11.65 Type 2 diabetes TYPE 2 DIABETES Problem 12/27/2017 MEDG EN (St mellitus with MELLITUS WITH 12:00:00 AM Dony's hyperglycemia HYPERGLYCEMIA [facility], ) Z86.73 Personal history of PERSONAL HISTORY OF Problem 018 MEDGEN (St transient ischemic TRANSIENT ISCHEMIC 12:00:00 AM Dony's attack (TIA), and ATTACK (TIA), AND T Medical, ) cerebral infarction 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 E11.65 Type 2 diabetes TYPE 2 DIABETES Problem 12/27/2017 MEDG EN (St mellitus with MELLITUS WITH 12:00:00 AM Dony's hyperglycemia HYPERGLYCEMIA [facility], ) M62.81 Muscle weakness MUSCLE WEAKNESS Problem 10/30/2017 MEDG EN (St (generalized) (GENERALIZED) 12:00:00 AM [facility], ) 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 10/30/2017 MEDGEN (St following cerebral FOLLOWING CEREBRAL 12:00:00 AM Dony's infarction INFARCTION [facility], ) I63.9 Cerebral CEREBRAL Problem 10/30/2017 MEDGEN (St infarction, INFARCTION, 12:00:00 AM Dony's unspecified UNSPECIFIED [facility], ) 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 10/30/2017 MEDGEN (St intracranial INTRACRANIAL 12:00:00 AM Dony's hemorrhage, HEMORRHAGE, [facility], ) unspecified UNSPECIFIED M62.81 Muscle weakness MUSCLE WEAKNESS Problem 10/30/2017 MEDG EN (St (generalized) (GENERALIZED) 12:00:00 AM [facility], ) 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 10/30/2017 MEDGEN (St following cerebral FOLLOWING CEREBRAL 12:00:00 AM Dony's infarction INFARCTION [facility], ) I63.9 Cerebral CEREBRAL Problem 10/30/2017 MEDGEN (St infarction, INFARCTION, 12:00:00 AM Dony's unspecified UNSPECIFIED EDT Medical, ) 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 10/30/2017 MEDGEN (St intracranial INTRACRANIAL 12:00:00 AM Dony's hemorrhage, HEMORRHAGE, EDT Medical, ) unspecified UNSPECIFIED M62.81 Muscle weakness MUSCLE WEAKNESS Problem 10/30/2017 MEDG EN (St (generalized) (GENERALIZED) 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 10/30/2017 [...] FOLLOWING CEREBRAL 12:00:00 AM Dony's infarction INFARCTION [facility], ) I63.9 Cerebral CEREBRAL Problem 10/30/2017 MEDGEN (St infarction, INFARCTION, 12:00:00 AM Dony's unspecified UNSPECIFIED T Medical, ) 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 10/30/2017 MEDGEN (St intracranial INTRACRANIAL 12:00:00 AM Dony's hemorrhage, HEMORRHAGE, T Medical, ) unspecified UNSPECIFIED M62.81 Muscle weakness MUSCLE WEAKNESS Problem 10/30/2017 MEDG EN (St (generalized) (GENERALIZED) 12:00:00 AM Dony's [facility], ) 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 10/30/2017 [...] MEDG EN (St unspecified UNSPECIFIED 12:00:00 AM [facility], ) E78.5 Hyperlipidemia, HYPERLIPIDEMIA, Problem 07/31/2017 MEDG EN (St unspecified UNSPECIFIED 12:00:00 AM [facility], ) E78.5 Hyperlipidemia, HYPERLIPIDEMIA, Problem 07/31/2017 MEDG EN (St unspecified UNSPECIFIED 12:00:00 AM [facility], ) E78.5 Hyperlipidemia, HYPERLIPIDEMIA, Problem 07/31/2017 MEDG EN (St unspecified UNSPECIFIED 12:00:00 AM [facility], ) E78.5 Hyperlipidemia, HYPERLIPIDEMIA, Problem 07/31/2017 MEDG EN (St unspecified UNSPECIFIED 12:00:00 AM [facility], ) E78.5 Hyperlipidemia, HYPERLIPIDEMIA, Problem 07/31/2017 MEDG EN (St unspecified UNSPECIFIED 12:00:00 AM [facility], ) E78.5 Hyperlipidemia, HYPERLIPIDEMIA, Problem 07/31/2017 MEDG EN (St unspecified UNSPECIFIED 12:00:00 AM [facility]) E78.5 Hyperlipidemia, HYPERLIPIDEMIA, Problem 07/31/2017 MEDG EN (St unspecified UNSPECIFIED 12:00:00 AM [facility]) E78.5 Hyperlipidemia, HYPERLIPIDEMIA, Problem 07/31/2017 MEDG EN (St unspecified UNSPECIFIED 12:00:00 AM [facility], ) E78.5 Hyperlipidemia, HYPERLIPIDEMIA, Problem 07/31/2017 MEDG EN (St unspecified UNSPECIFIED 12:00:00 AM [facility]) E78.5 Hyperlipidemia, HYPERLIPIDEMIA, Problem 07/31/2017 MEDG EN (St unspecified UNSPECIFIED 12:00:00 AM [facility], ) E78.5 Hyperlipidemia, HYPERLIPIDEMIA, Problem 07/31/2017 MEDG EN (St unspecified UNSPECIFIED 12:00:00 AM [facility]) E78.5 Hyperlipidemia, HYPERLIPIDEMIA, Problem 07/31/2017 MEDG EN (St unspecified UNSPECIFIED 12:00:00 AM [facility]) E78.5 Hyperlipidemia, HYPERLIPIDEMIA, Problem 07/31/2017 MEDG EN (St unspecified UNSPECIFIED 12:00:00 AM [facility], ) E87.5 Hyperkalemia HYPERKALEMIA Problem 07/10/2017 MEDGEN (St 12:00:00 AM [facility], ) E87.5 Hyperkalemia HYPERKALEMIA Problem 07/10/2017 MEDGEN (St 12:00:00 AM [facility], ) E87.5 Hyperkalemia HYPERKALEMIA Problem 07/10/2017 MEDGEN (St 12:00:00 AM [facility], ) E87.5 Hyperkalemia HYPERKALEMIA Problem 07/10/2017 MEDGEN (St 12:00:00 AM [facility], ) E87.5 Hyperkalemia HYPERKALEMIA Problem 07/10/2017 MEDGEN (St 12:00:00 AM [facility], ) E87.5 Hyperkalemia HYPERKALEMIA Problem 07/10/2017 MEDGEN (St 12:00:00 AM [facility], ) E87.5 Hyperkalemia HYPERKALEMIA Problem 07/10/2017 MEDGEN (St 12:00:00 AM [facility], ) E87.5 Hyperkalemia HYPERKALEMIA Problem 07/10/2017 MEDGEN (St 12:00:00 AM [facility], ) E87.5 Hyperkalemia HYPERKALEMIA Problem 07/10/2017 MEDGEN (St 12:00:00 AM [facility], ) E87.5 Hyperkalemia HYPERKALEMIA Problem 07/10/2017 MEDGEN (St 12:00:00 AM [facility], ) E87.5 Hyperkalemia HYPERKALEMIA Problem 07/10/2017 MEDGEN (St 12:00:00 AM [facility], ) E87.5 Hyperkalemia HYPERKALEMIA Problem 07/10/2017 MEDGEN (St 12:00:00 AM [facility], ) E87.5 Hyperkalemia HYPERKALEMIA Problem 07/10/2017 MEDGEN (St 12:00:00 AM [facility], ) E87.5 Hyperkalemia HYPERKALEMIA Problem 07/10/2017 MEDGEN (St 12:00:00 AM [facility], ) E87.5 Hyperkalemia HYPERKALEMIA Problem 07/10/2017 MEDGEN (St 12:00:00 AM [facility], ) K59.09 Other constipation OTHER CONSTIPATION Problem 8 MEDGEN (St 12:00:00 AM [facility], ) I10 Essential (primary) ESSENTIAL (PRIMARY) Problem 018 MEDGEN (St hypertension HYPERTENSION 12:00:00 AM Dony's [facility], ) E11.9 Type 2 diabetes TYPE 2 DIABETES Problem 06/05/2017 MEDG EN (St mellitus without MELLITUS WITHOUT 12:00:00 AM J ohn's complications COMPLICATIONS EST Medical, ) K59.09 Other constipation OTHER CONSTIPATION Problem 8 MEDGEN (St 12:00:00 AM [facility], ) I10 Essential (primary) ESSENTIAL (PRIMARY) Problem 018 MEDGEN (St hypertension HYPERTENSION 12:00:00 AM Dony's [facility], ) E11.9 Type 2 diabetes TYPE 2 DIABETES Problem 06/05/2017 MEDG EN (St mellitus without MELLITUS WITHOUT 12:00:00 AM J ohn's complications COMPLICATIONS EST Medical, ) K59.09 Other constipation OTHER CONSTIPATION Problem 8 MEDGEN (St 12:00:00 AM Dony's [facility], ) I10 Essential (primary) ESSENTIAL (PRIMARY) Problem 018 MEDGEN (St hypertension HYPERTENSION 12:00:00 AM Dony's [facility], ) E11.9 Type 2 diabetes TYPE 2 DIABETES Problem 06/05/2017 MEDG EN (St mellitus without MELLITUS WITHOUT 12:00:00 AM J ohn's complications COMPLICATIONS EST Medical, ) K59.09 Other constipation OTHER CONSTIPATION Problem 8 MEDGEN (St 12:00:00 AM Dony's [facility], ) I10 Essential (primary) ESSENTIAL (PRIMARY) Problem 018 MEDGEN (St hypertension HYPERTENSION 12:00:00 AM [facility], ) E11.9 Type 2 diabetes TYPE 2 DIABETES Problem 06/05/2017 MEDG EN (St mellitus without MELLITUS WITHOUT 12:00:00 AM J ohn's complications COMPLICATIONS EST Medical, ) K59.09 Other constipation OTHER CONSTIPATION Problem 8 MEDGEN (St 12:00:00 AM Dony's [facility], ) I10 Essential (primary) ESSENTIAL (PRIMARY) Problem 018 MEDGEN (St hypertension HYPERTENSION 12:00:00 AM [facility], ) E11.9 Type 2 diabetes TYPE 2 DIABETES Problem 06/05/2017 MEDG EN (St mellitus without MELLITUS WITHOUT 12:00:00 AM J ohn's complications COMPLICATIONS EST Medical, ) K59.09 Other constipation OTHER CONSTIPATION Problem 8 MEDGEN (St 12:00:00 AM Dony's [facility], ) I10 Essential (primary) ESSENTIAL (PRIMARY) Problem 018 MEDGEN (St hypertension HYPERTENSION 12:00:00 AM [facility], ) E11.9 Type 2 diabetes TYPE 2 DIABETES Problem 06/05/2017 MEDG EN (St mellitus without MELLITUS WITHOUT 12:00:00 AM J ohn's complications COMPLICATIONS EST Medical, PC) K59.09 Other constipation OTHER CONSTIPATION Problem 8 MEDGEN (St 12:00:00 AM Dony's [facility], ) I10 Essential (primary) ESSENTIAL (PRIMARY) Problem 018 MEDGEN (St hypertension HYPERTENSION 12:00:00 AM Dony's [facility], ) E11.9 Type 2 diabetes TYPE 2 DIABETES Problem 06/05/2017 MEDG EN (St mellitus without MELLITUS WITHOUT 12:00:00 AM J ohn's complications COMPLICATIONS EST Medical, ) K59.09 Other constipation OTHER CONSTIPATION Problem 8 MEDGEN (St 12:00:00 AM Dony's [facility], ) I10 Essential (primary) ESSENTIAL (PRIMARY) Problem 018 MEDGEN (St hypertension HYPERTENSION 12:00:00 AM [facility], ) E11.9 Type 2 diabetes TYPE 2 DIABETES Problem 06/05/2017 MEDG EN (St mellitus without MELLITUS WITHOUT 12:00:00 AM J ohn's complications COMPLICATIONS EST Medical, ) K59.09 Other constipation OTHER CONSTIPATION Problem 8 MEDGEN (St 12:00:00 AM Dony's [facility], ) I10 Essential (primary) ESSENTIAL (PRIMARY) Problem 018 MEDGEN (St hypertension HYPERTENSION 12:00:00 AM Dony's [facility], ) E11.9 Type 2 diabetes TYPE 2 DIABETES Problem 06/05/2017 MEDG EN (St mellitus without MELLITUS WITHOUT 12:00:00 AM J ohn's complications COMPLICATIONS EST Medical, PC) K59.09 Other constipation OTHER CONSTIPATION Problem 8 MEDGEN (St 12:00:00 AM Dony's [facility], ) I10 Essential (primary) ESSENTIAL (PRIMARY) Problem 018 MEDGEN (St hypertension HYPERTENSION 12:00:00 AM Dony's [facility], ) E11.9 Type 2 diabetes TYPE 2 DIABETES Problem 06/05/2017 MEDG EN (St mellitus without MELLITUS WITHOUT 12:00:00 AM J ohn's complications COMPLICATIONS EST Medical, PC) K59.09 Other constipation OTHER CONSTIPATION Problem 8 MEDGEN (St 12:00:00 AM Dony's [facility], ) I10 Essential (primary) ESSENTIAL (PRIMARY) Problem 018 MEDGEN (St hypertension HYPERTENSION 12:00:00 AM Dony's [facility], ) E11.9 Type 2 diabetes TYPE 2 DIABETES Problem 06/05/2017 MEDG EN (St mellitus without MELLITUS WITHOUT 12:00:00 AM J ohn's complications COMPLICATIONS EST Medical, PC) K59.09 Other constipation OTHER CONSTIPATION Problem 8 MEDGEN (St 12:00:00 AM Dony's [facility], ) I10 Essential (primary) ESSENTIAL (PRIMARY) Problem 018 MEDGEN (St hypertension HYPERTENSION 12:00:00 AM Dony's [facility], ) E11.9 Type 2 diabetes TYPE 2 DIABETES Problem 06/05/2017 MEDG EN (St mellitus without MELLITUS WITHOUT 12:00:00 AM J ohn's complications COMPLICATIONS EST Medical, PC) K59.09 Other constipation OTHER CONSTIPATION Problem 8 MEDGEN (St 12:00:00 AM Dony's [facility], ) I10 Essential (primary) ESSENTIAL (PRIMARY) Problem 018 MEDGEN (St hypertension HYPERTENSION 12:00:00 AM [facility], ) E11.9 Type 2 diabetes TYPE 2 DIABETES Problem 06/05/2017 MEDG EN (St mellitus without MELLITUS WITHOUT 12:00:00 AM J ohn's complications COMPLICATIONS EST [facility], ) K59.09 Other constipation OTHER CONSTIPATION Problem 8 MEDGEN (St 12:00:00 AM [facility], ) I10 Essential (primary) ESSENTIAL (PRIMARY) Problem 018 MEDGEN (St hypertension HYPERTENSION 12:00:00 AM [facility], ) E11.9 Type 2 diabetes TYPE 2 DIABETES Problem 06/05/2017 MEDG EN (St mellitus without MELLITUS WITHOUT 12:00:00 AM J ohn's complications COMPLICATIONS EST Medical, ) K59.09 Other constipation OTHER CONSTIPATION Problem 8 MEDGEN (St 12:00:00 AM [facility], ) I10 Essential (primary) ESSENTIAL (PRIMARY) Problem 018 MEDGEN (St hypertension HYPERTENSION 12:00:00 AM [facility], ) E11.9 Type 2 diabetes [...] EDT Center E87.6 Hypokalemia HYPOKALEMIA Diagnosis 11/05/2019 [place] 03:45:00 PM Medical EDT Center J18.9 [...] cerebral infarction DEFICITS without residual deficits 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 020 [place] use of [...] BY Diagnosis 06/15/2018 [facility] angiotensin-convert [id number] 04:59:0 0 PM Medical ing-enzyme NZYME INHIBTR, [...] MEDG EN (Jessica's 15 MINUTES [facility]ation of current 12/09/2019 MED GEN [...] 12/09/2019 MEDG EN (Jessica's VENIPUNCTURE 12:00:00 AM [facility], [facility]) Documentation of current 12/09/2019 MED [...] 12/09/2019 MEDG EN (Jessica's VENIPUNCTURE 12:00:00 AM [facility], [facility]) Documentation of current 12/09/2019 MED [...] GEN (Jessica[facility] medications [facility]procedure) [facility] current 11/06/2019 MED GEN (Jessica's medications (procedure) 12:00:00 AM EDT edical, ) Documentation of current 11/06/2019 MED GEN (Jessica's medications (procedure) 12:00:[facility] Documentation of current 11/06/2019 MED GEN (Jessica's medications (procedure) 12:00:00 AM EDT edical, ) Documentation of current 11/06/2019 MED GEN (Jessica's medications (procedure) 12:00:[facility] Documentation of current 11/06/2019 MED GEN (Jessica's medications (procedure) 12:00:[facility] Documentation of current 11/06/2019 MED GEN (Jessica's medications (procedure) 12:00:00 [facility] Documentation of current 11/06/2019 MED GEN [...] GEN (Jessica's medications (procedure) 12:00:[facility] Documentation of current 11/06/2019 MED GEN [...] GEN (Jessica's medications (procedure) 12:00:[facility] Documentation of current 11/06/2019 MED GEN (Jessica's medications (procedure) 12:00:00 [facility] Documentation of current 11/06/2019 MED GEN (Jessica's medications (procedure) 12:00:00 [facility] Documentation of current 11/06/2019 MED GEN (Jessica's medications (procedure) 12:00:00 [facility] Documentation of current 11/06/2019 MED GEN (Jessica's medications (procedure) 12:00:00 AM EDT edical, ) Documentation of current 11/06/2019 MED GEN (Jessica's medications (procedure) 12:00:[facility] Documentation of current 11/06/2019 MED GEN (Jessica's medications (procedure) 12:00:00 AM EDT edical, ) Documentation of current 11/06/2019 MED GEN (Jessica's medications (procedure) 12:00:[facility] Documentation of current 11/06/2019 MED GEN (Jessica's medications (procedure) 12:00:00 AM EDT edical, ) Documentation of current 11/06/2019 MED GEN (Jessica's medications (procedure) 12:00:[facility] Documentation of current 11/06/2019 MED GEN [...] 11/06/2019 MED [facility] ANY 11/06/2019 MEDGEN (Jessica[facility] METHOD 6[facility]ation of current 11/06/2019 MED GEN (Jessica's medications (procedure) 12:00:00 AM EDT natalie, ) OFFICE OUTPATIENT VISIT 11/06/2019 MEDG EN (Jessica's 25 MINUTES 12:00:00 AM [facility] Medical, ) Documentation of current 10/16/2019 MED [...] 10/16/2019 MEDG EN (Jessica's VENIPUNCTURE 12:00:00 AM [facility], PC) Documentation of current 10/16/2019 MED [...] 10/16/2019 MEDG EN (Jessica's VENIPUNCTURE 12:00:00 AM [facility], ) Documentation of current 10/16/2019 MED [...] 10/16/2019 MEDG EN (Jessica's VENIPUNCTURE 12:00:00 AM [facility]) Documentation of current 10/16/2019 MED [...] 10/16/2019 MEDG EN (Jessica's VENIPUNCTURE 12:00:00 AM [facility]) Documentation of current 10/16/2019 MED [...] PC) Documentation of current 10/16/2019 MED GEN (Jesscia's medications (procedure) 12:00:00 AM EDT Lewis estrada, [...] MEDGEN (Jessica's INTERMEDIATE 3-10 MINUTES 12:00:00 AM [facility], ) COLLECTION VENOUS BLOOD 10/16/2019 MEDG EN (Jessica's VENIPUNCTURE 12:00:00 AM [facility], ) Documentation of current 10/16/2019 MED [...] MEDGEN (Jessica's INTERMEDIATE 3-10 MINUTES 12:00:00 AM [facility], ) COLLECTION VENOUS BLOOD 10/16/2019 MEDG EN (Jessica's VENIPUNCTURE 12:00:00 AM [facility], ) Documentation of current 10/16/2019 MED [...] MEDGEN (Jessica's INTERMEDIATE 3-10 MINUTES 12:00:00 AM [facility], ) COLLECTION VENOUS BLOOD 10/16/2019 MEDG EN (Jessica's VENIPUNCTURE 12:00:00 AM [facility], ) Documentation of current 10/16/2019 MED [...] MEDGEN (Jessica's INTERMEDIATE 3-10 MINUTES 12:00:00 AM [facility], ) COLLECTION VENOUS BLOOD 10/16/2019 MEDG EN (Jessica's VENIPUNCTURE 12:00:00 AM [facility], ) Documentation of current 10/07/2019 MED [...] PC) Documentation of current 10/07/2019 MED GEN (Jsesica's medications (procedure) 12:00:00 AM EDT [facility]) [...] GEN (Jessica's medications (procedure) 12:00:00 AM EDT [facility], [facility]) Documentation of current 10/07/2019 MED GEN [...] MEDG EN (Jessica's 25 MINUTES 12:00:00 AM [facility], ) COLLECTION VENOUS BLOOD 10/07/2019 MEDG EN (Jessica's VENIPUNCTURE 12:00:00 AM [facility], ) Documentation of current 10/07/2019 MED [...] MEDG EN (Jessica's 25 MINUTES 12:00:00 AM [facility] Medical, PC) COLLECTION VENOUS BLOOD 10/07/2019 MEDG EN (Jessica's VENIPUNCTURE 12:00:00 AM [facility]) Documentation of current 10/07/2019 MED [...] MEDG EN (Jessica's 25 MINUTES 12:00:00 AM [facility] Medical, ) COLLECTION VENOUS BLOOD 10/07/2019 MEDG EN (Jessica's VENIPUNCTURE 12:00:00 AM [facility], ) Documentation of current 10/07/2019 MED [...] MEDG EN (Jessica's 25 MINUTES 12:00:00 AM [facility], ) COLLECTION VENOUS BLOOD 10/07/2019 MEDG EN (Jessica's VENIPUNCTURE 12:00:00 AM [facility], ) Documentation of current 10/07/2019 MED [...] MEDG EN (Jessica's 25 MINUTES 12:00:00 AM [facility], ) COLLECTION VENOUS BLOOD 10/07/2019 MEDG EN (Jessica's VENIPUNCTURE 12:00:00 AM [facility], ) Documentation of current 10/07/2019 MED [...] MEDG EN (Jessica's 25 MINUTES 12:00:00 AM [facility], ) COLLECTION VENOUS BLOOD 10/07/2019 MEDG EN (Jessica's VENIPUNCTURE 12:00:00 AM [facility], ) Documentation of current 10/07/2019 MED [...] PC) Documentation of current 10/07/2019 MED GEN (Ejssica's medications (procedure) 12:00:00 AM [...] MEDG EN (Jessica's 25 MINUTES 12:00:00 AM [facility], ) COLLECTION VENOUS BLOOD 10/07/2019 MEDG [...] MEDG EN (Jessica's 25 MINUTES 12:00:00 AM [facility], ) COLLECTION VENOUS BLOOD 10/07/2019 MEDG EN (Jessica's VENIPUNCTURE 12:00:00 AM [facility], ) Documentation of current 10/07/2019 MED [...] MEDG EN (Jessica's 25 MINUTES 12:00:00 AM [facility], ) COLLECTION VENOUS BLOOD 10/07/2019 MEDG [...] MEDG EN (Jessica's 25 [facility]ENOUS BLOOD 10/07/2019 MEDG EN (Jessica's VENIPUNCTURE 12:00:00 AM [facility]) Documentation of current 10/07/2019 MED [...] EDT Lewis estrada, [facility]) Documentation of current 10/04/2019 MED GEN [...] GEN (Jessica's medications (procedure) 12:00:00 AM [facility] Documentation of current 10/04/2019 MED GEN (Jessica's medications (procedure) 12:00:00 [facility] Documentation of current 10/04/2019 MED GEN (Jessica's medications (procedure) 12:00:[address] [facility] ) Documentation of current 10/04/2019 MED GEN (Jessica's medications (procedure) 12:00:[address] [facility] ) Documentation of current 10/04/2019 MED GEN (Jessica's medications (procedure) 12:00:[address] [facility] ) Documentation of current 10/04/2019 MED GEN (Jessica's medications (procedure) 12:00:00 AM EDT natalie ) Documentation of current 10/04/2019 MED GEN (Jessica's medications (procedure) 12:00:00 AM EDT natalie ) Documentation of current 10/04/2019 MED GEN (Jessica's medications (procedure) 12:00:[facility] Documentation of current 10/04/2019 MED GEN (Jessica's medications (procedure) 12:00:[address] [facility] ) PHYSICIAN TELEPHONE 10/04/2019 MEDGEN ( Jessica's EVALUATION 21-30 MIN 12:00:00 AM [facility], ) OFFICE OUTPATIENT VISIT 09/20/2019 MEDG EN (Jessica's 15 MINUTES 12:00:[facility] [facility] COLLECTION VENOUS BLOOD 09/20/2019 MEDG EN (Jessica's VENIPUNCTURE 12:00:00 AM [facility], ) OFFICE OUTPATIENT VISIT 09/20/2019 MEDG EN (Jessica's 15 MINUTES 12:00:00 AM [facility], ) COLLECTION VENOUS BLOOD 09/20/2019 MEDG EN (Jessica's VENIPUNCTURE 12:00:00 AM [facility], ) OFFICE OUTPATIENT VISIT 09/20/2019 MEDG EN (Jessica's 15 MINUTES 12:00:00 AM [facility], ) COLLECTION VENOUS BLOOD 09/20/2019 MEDG EN (Jessica's VENIPUNCTURE 12:00:00 AM [facility], ) OFFICE OUTPATIENT VISIT 09/20/2019 MEDG [...] EVALUATION 21-30 MIN 12:00:00 AM EDT [facility], ) PHYSICIAN TELEPHONE 08/26/2019 MEDGEN ( Jessica's EVALUATION 21-30 MIN 12:00:00 AM EDT [facility], ) PHYSICIAN TELEPHONE 08/26/2019 MEDGEN ( Jessica's EVALUATION 21-30 MIN 12:00:00 AM EDT [facility], ) PHYSICIAN TELEPHONE 08/26/2019 MEDGEN ( Jessica's EVALUATION 21-30 MIN 12:00:00 AM EDT [facility]) PHYSICIAN TELEPHONE 08/26/2019 MEDGEN ( Jessica's EVALUATION 21-30 MIN 12:00:00 AM EDT [facility], ) PHYSICIAN TELEPHONE 08/26/2019 MEDGEN ( Jessica's EVALUATION 21-30 MIN 12:00:00 AM EDT [facility], [facility]) PHYSICIAN TELEPHONE 08/26/2019 MEDGEN ( Jessica's EVALUATION 21-30 MIN 12:00:00 AM EDT [facility], ) PHYSICIAN TELEPHONE 08/26/2019 MEDGEN ( Jessica's EVALUATION 21-30 MIN 12:00:00 AM EDT [facility], ) PHYSICIAN TELEPHONE 08/26/2019 MEDGEN ( Jessica's EVALUATION 21-30 MIN 12:00:00 AM EDT [facility], ) PHYSICIAN TELEPHONE 08/26/2019 MEDGEN ( Jessica's EVALUATION 21-30 MIN 12:00:00 AM EDT [facility], ) PHYSICIAN TELEPHONE 08/26/2019 MEDGEN ( Jessica's EVALUATION 21-30 MIN 12:00:00 AM EDT [facility], ) OFFICE OUTPATIENT VISIT 06/11/2019 MEDG EN [...] GEN (Jessica's medications (procedure) 12:00:00 AM CARIDAD Chavraria) Documentation of current 04/16/2019 MED GEN (Jessica's [...] GEN (Jessica's medications (procedure) 12:00:00 AM RJ etsrada, CARIDAD) Documentation of current 04/16/2019 MED GEN [...] GEN (Jessica[facility]procedure) [facility] Documentation of current 02/01/2019 MED GEN (Jessica's medications (procedure) 12:00:[facility] Documentation of current 02/01/2019 MED GEN (Jessica's medications (procedure) 12:00:00 [facility] OFFICE OUTPATIENT VISIT 02/01/2019 MEDG EN (Jessica's 15 MINUTES 12:00:00 AM [facility], ) GLUC BLD GLUC MNTR DEV 02/01/2019 MEDGE N (Jessica's CLEARED FDA SPEC HOME USE 12:00:00 AM [facility], ) COLLECTION VENOUS BLOOD 02/01/2019 MEDG EN (Jessica's VENIPUNCTURE 12:00:00 AM [facility], ) Documentation of current 02/01/2019 MED [...] GEN (Jessica's medications (procedure) 12:00:00 [facility] Documentation of current 02/01/2019 MED GEN (Jessica's medications (procedure) 12:00:00 [facility] OFFICE OUTPATIENT VISIT 02/01/2019 MEDG EN (Jessica's 15 MINUTES 12:00:00 AM [facility], ) GLUC BLD GLUC MNTR DEV 02/01/2019 MEDGE N (Jessica's CLEARED FDA SPEC HOME USE 12:00:00 AM [facility], ) COLLECTION VENOUS BLOOD 02/01/2019 MEDG EN (Jessica's VENIPUNCTURE 12:00:00 AM [facility], ) Documentation of current 02/01/2019 MED GEN (Jessica's medications (procedure) 12:00:00 [facility] Documentation of current 02/01/2019 MED GEN [...] MEDG EN (Jessica's 15 MINUTES 12:00:00 AM [facility], ) GLUC BLD GLUC MNTR DEV 02/01/2019 MEDGE N (Jessica's CLEARED FDA SPEC HOME USE 12:00:00 AM [facility], ) COLLECTION VENOUS BLOOD 02/01/2019 MEDG EN (Jessica's VENIPUNCTURE 12:00:00 AM [facility], ) Documentation of current 02/01/2019 MED [...] 02/01/2019 MEDG EN (Jessica's VENIPUNCTURE 12:00:00 AM [facility], ) Documentation of current 02/01/2019 MED [...] GEN (Jessica's medications (procedure) [facility]:00:[facility] Documentation of current 02/01/2019 MED GEN (Jessica's medications (procedure) 12:00:00 [facility], ) Documentation of current 02/01/2019 MED GEN (Jessica's medications (procedure) 12:00:00 AM [facility], ) Documentation of current 02/01/2019 MED GEN (Jessica's medications (procedure) 12:00:00 AM [facility], ) Documentation of current 02/01/2019 MED GEN (Jessica's medications (procedure) 12:00:00 AM EDT [facility], ) Documentation of current 02/01/2019 MED GEN (Jessica's medications (procedure) 12:00:00 [facility] Documentation of current 02/01/2019 MED GEN (Jessica's medications (procedure) 12:00:00 AM EDT [facility], ) Documentation of current 02/01/2019 MED GEN (Jessica's medications (procedure) 12:00:00 AM T [facility], ) Documentation of current 02/01/2019 MED GEN (Jessica's medications (procedure) 12:00:00 AM EDT [facility], ) Documentation of current 02/01/2019 MED GEN (Jessica's medications (procedure) 12:00:00 [facility] ) Documentation of current 02/01/2019 MED GEN (Jessica's medications (procedure) [facility]00:[facility] OFFICE OUTPATIENT VISIT 02/01/2019 MEDG EN (Jessica's 15 MINUTES 12:00:00 AM [facility], ) GLUC BLD GLUC MNTR DEV 02/01/2019 MEDGE N (Jessica's CLEARED FDA SPEC HOME USE 12:00:00 AM [facility], ) COLLECTION VENOUS BLOOD 02/01/2019 MEDG [...] GEN (Jessica's medications (procedure) 12:00:[address] [facility], ) Documentation of current 02/01/2019 MED GEN (Jessica's medications (procedure) 12:00:00 [facility] Documentation of current 02/01/2019 MED GEN (Jessica's medications (procedure) 12:00:[address] [facility], ) Documentation of current 02/01/2019 MED GEN (Jessica's medications (procedure) 12:00:00 [facility] ) Documentation of current 02/01/2019 MED GEN (Jessica's medications (procedure) 12:00:00 AM [facility], ) Documentation of current 02/01/2019 MED GEN (Jessica's medications (procedure) 12:00:[address] [facility], ) Documentation of current 02/01/2019 MED GEN (Jessica's medications (procedure) 12:00:[address] [facility], ) Documentation of current 02/01/2019 MED GEN (Jessica's medications (procedure) 12:00:[address] [facility], ) OFFICE OUTPATIENT VISIT 02/01/2019 MEDG EN (Jessica's 15 MINUTES 12:00:00 AM [facility], ) GLUC BLD GLUC MNTR DEV 02/01/2019 MEDGE N (Jessica's CLEARED FDA SPEC HOME USE 12:00:00 AM [facility], ) COLLECTION VENOUS BLOOD 02/01/2019 MEDG EN (Jessica's VENIPUNCTURE 12:00:00 AM [facility], ) Documentation of current 02/01/2019 MED GEN (Jessica's medications (procedure) 12:00:[address] [facility], ) Documentation of current 02/01/2019 MED GEN (Jessica's medications (procedure) 12:00:00 [facility] Documentation of current 02/01/2019 MED GEN [...] MEDG EN (Jessica's 15 MINUTES 12:00:00 AM [facility], ) GLUC BLD GLUC MNTR DEV 02/01/2019 MEDGE N (Jessica's CLEARED FDA SPEC HOME USE 12:00:00 AM [facility] Medical, PC) COLLECTION VENOUS BLOOD 02/01/2019 MEDG EN (Jessica's VENIPUNCTURE 12:00:00 AM [facility], ) Documentation of current 02/01/2019 MED [...] GEN (Jessica's medications (procedure) 12:00:[address] [facility], ) Documentation of current 02/01/2019 MED GEN (Jessica's medications (procedure) 12:00:00 [facility] Documentation of current 02/01/2019 MED GEN (Jessica's medications (procedure) 12:00:[address] [facility], ) Documentation of current 02/01/2019 MED GEN (Jessica's medications (procedure) 12:00:00 AM [facility] ) Documentation of current 02/01/2019 MED GEN (Jessica's medications (procedure) 12:00:00 AM [facility], ) Documentation of current 02/01/2019 MED GEN (Jessica's medications (procedure) 12:00:[address] [facility], ) Documentation of current 02/01/2019 MED GEN (Jessica's medications (procedure) 12:00:[address] [facility], ) Documentation of current 02/01/2019 MED GEN (Jessica's medications (procedure) 12:00:[address] [facility], ) Documentation of current 02/01/2019 MED GEN (Jessica's medications (procedure) 12:00:[address] [facility], ) Documentation of current 02/01/2019 MED GEN (Jessica's medications (procedure) 12:00:[address] [facility], ) OFFICE OUTPATIENT VISIT 02/01/2019 MEDG EN (Jessica's 15 MINUTES 12:00:00 AM [facility], ) GLUC BLD GLUC MNTR DEV 02/01/2019 MEDGE N (Jessica's CLEARED FDA SPEC HOME USE 12:00:00 AM [facility], ) COLLECTION VENOUS BLOOD 02/01/2019 MEDG EN (Jessica's VENIPUNCTURE 12:00:00 AM [facility], ) Documentation of current 02/01/2019 MED [...] GEN (Jessica's medications (procedure) 12:00:00 [facility] Documentation of current 02/01/2019 MED GEN (Jessica's medications (procedure) 12:00:00 [facility] Documentation of current 02/01/2019 MED GEN (Jessica's medications (procedure) 12:00:00 AM [facility] Documentation of current 02/01/2019 MED GEN (Jessica's medications (procedure) 12:00:00 [facility], ) Documentation of current 02/01/2019 MED GEN (Jessica's medications (procedure) 12:00:[address] [facility], ) OFFICE OUTPATIENT VISIT 02/01/2019 MEDG EN (Jessica's 15 MINUTES 12:00:00 AM [facility], ) GLUC BLD GLUC MNTR DEV 02/01/2019 MEDGE N (Jessica's CLEARED FDA SPEC HOME USE 12:00:00 AM [facility], ) COLLECTION VENOUS BLOOD 02/01/2019 MEDG EN (Jessica's VENIPUNCTURE 12:00:00 AM [facility], ) Documentation of current 02/01/2019 MED GEN (Jessica's medications (procedure) 12:00:[address] [facility], PC) Documentation of current 02/01/2019 MED GEN (Jessica's medications (procedure) 12:00:00 AM EDT [facility], PC) Documentation of current 02/01/2019 MED GEN (Jessica's medications (procedure) 12:00:00 AM EDT [facility], PC) Documentation of current 02/01/2019 MED GEN (Jessica's medications (procedure) 12:00:[facility] Documentation of current 02/01/2019 MED GEN [...] MEDG EN (Jessica's 15 MINUTES 12:00:00 AM [facility], ) GLUC BLD GLUC MNTR DEV 02/01/2019 MEDGE N (Jessica's CLEARED FDA SPEC HOME USE 12:00:00 AM [facility], ) COLLECTION VENOUS BLOOD 02/01/2019 MEDG EN (Jessica's VENIPUNCTURE 12:00:00 AM [facility], ) Documentation of current 02/01/2019 MED [...] MEDG EN (Jessica's 15 MINUTES 12:00:00 AM [facility] Medical, ) GLUC BLD GLUC MNTR DEV 02/01/2019 MEDGE N (Jessica's CLEARED FDA SPEC HOME USE 12:00:00 AM ED Medical, ) COLLECTION VENOUS BLOOD 02/01/2019 MEDG EN (Jessica's VENIPUNCTURE 12:00:00 AM [facility], ) Documentation of current 12/31/2018 MED [...] MEDG EN (Jessica's 15 MINUTES 12:00:00 AM [facility]) Documentation of current 12/31/2018 MED [...] GEN (Jessica's medications (procedure) 12:00:00 AM EDT natlaie, PC) Documentation of current 12/31/2018 MED GEN [...] MEDG EN (Jessica's 15 MINUTES 12:00:00 AM [facility] Medical, PC) GLUC BLD GLUC MNTR DEV [...] MEDG EN (Jessica's 15 MINUTES 12:00:00 AM [facility] Medical, PC) GLUC BLD GLUC MNTR DEV [...] PC) Documentation of current 12/17/2018 MED GEN (Jesscia's medications (procedure) 12:00:00 AM EDT natalie, PC) [...] [facility]UC [facility] DEV [...] GEN (Jessica's medications (procedure) 12:00:00 AM EDT [facility], PC) Documentation of current 12/17/2018 MED GEN [...] MEDG EN (Jessica's 15 MINUTES 12:00:00 AM [facility] Medical, PC) GLUC BLD GLUC MNTR DEV [...] AM EDT natalei, PC) Documentation of current 12/17/2018 MED GEN [...] MEDG EN (Jessica's 15 MINUTES 12:00:00 AM [facility], ) GLUC BLD GLUC MNTR DEV [...] GEN (Jessica's medications (procedure) 12:00:00 [facility] Documentation of current 12/17/2018 MED GEN (Jessica's medications (procedure) 12:00:00 AM [facility] Documentation of current 12/17/2018 MED GEN (Jessica's medications (procedure) 12:00:00 AM [facility], [facility] OFFICE OUTPATIENT VISIT 12/17/2018 MEDG [...] MEDG EN (Jessica's 15 MINUTES 12:00:00 AM [facility], PC) Documentation of current 08/31/2018 MED [...] PC) Documentation of current 08/31/2018 MED GEN (Jesscia's medications (procedure) 12:00:00 AM EDT natalie, PC) Documentation of current 08/31/2018 MED GEN (Jessica's medications (procedure) 12:00:00 AM EDT natalie, PC) OFFICE OUTPATIENT VISIT 08/31/2018 MEDG EN (Jessica's 15 MINUTES 12:00:00 AM [facility], ) Documentation of current 08/31/2018 MED [...] MEDG EN (Jessica's 15 MINUTES 12:00:00 AM [facility], ) Documentation of current 08/31/2018 MED [...] MEDG EN (Jessica's 15 MINUTES 12:00:00 AM [facility], ) Documentation of current 08/31/2018 MED [...] MEDG EN (Jessica's 15 MINUTES 12:00:00 AM [facility], ) Documentation of current 08/31/2018 MED GEN (Jessica's medications (procedure) 12:00:00 AM EDT [facility], PC) Documentation of current 08/31/2018 MED GEN (Jessica's medications (procedure) 12:00:00 AM EDT [facility], PC) Documentation of current 08/31/2018 MED GEN (Jessica's medications (procedure) 12:00:00 AM EDT [facility], PC) OFFICE OUTPATIENT VISIT 08/31/2018 MEDG EN (Jessica's 15 MINUTES 12:00:00 AM [facility], ) Documentation of current 08/31/2018 MED [...] MEDG EN ([facility] 25 MINUT[facility] of current 07/20/2018 MED [...] GEN (Jessica's medications (procedure) 12:00:00 AM EDT Lewsi estrada, PC) Documentation of current 07/20/2018 MED [...] (Saint Interview (45+ Min) 12:00:00 AM EDT [facility] - 07/13/2018 Center) 12:00:00 AM EDT [...] MED GEN (Jessica's medications (procedure) 12:00:00 AM ACRIDAD Chavarria) OFFICE OUTPATIENT VISIT 06/01/2018 MEDG EN [...] GEN (Jessica's medications (procedure) 12:00:00 AM CARIDAD Cahvarria) Documentation of current 06/01/2018 MED GEN (Jessica's [...] MEDG EN (Jessica's 15 MINUTES 12:00:00 AM [facility], PC) Documentation of current 02/02/2018 MED [...] MEDG EN (Jessica's 15 MINUTES 12:00:00 AM [facility], PC) Documentation of current 02/02/2018 MED [...] MEDG EN (Jessica's 15 MINUTES 12:00:00 AM [facility] Medical, ) Documentation of current 02/02/2018 MED [...] MEDG EN (Jessica's 15 MINUTES 12:00:00 AM [facility], PC) Documentation of current 02/02/2018 MED [...] MEDG EN ([facility] of current 02/02/2018 MED [...] MEDG EN (Jessica's 15 MINUTES 12:00:00 AM [facility], ) Documentation of current 02/02/2018 MED [...] PC) Documentation of current 02/02/2018 MED GEN (Jesisca's medications (procedure) 12:00:00 AM EDT [facility], PC) [...] MEDG EN (Jessica's 15 MINUTES 12:00:00 AM [facility], PC) Documentation of current 02/02/2018 MED GEN (Jessica's medications (procedure) 12:00:00 AM EDT natalie, PC) Documentation of current 02/02/2018 MED GEN (Jesisca's medications (procedure) 12:00:00 AM EDT [facility], PC) [...] MEDG EN (Jessica's 15 MINUTES 12:00:00 AM [facility], PC) Documentation of current 02/02/2018 MED [...] MEDG EN (Jessica's 15 MINUTES 12:00:00 AM [facility] Medical, ) Documentation of current 02/02/2018 MED [...] MEDG EN ([facility] MINUT[facility] of current 01/25/2018 MED [...] MEDG EN (Jessica's 10 MINUTES 12:00:00 AM [facility], ) Documentation of current 01/25/2018 MED [...] MEDG EN (Jessica's 10 MINUTES 12:00:00 AM [facility] Medical, ) Documentation of current 01/25/2018 MED [...] MEDG EN (Jessica's 15 MINUTES 12:00:00 AM [facility] Medical, PC) Documentation of current 01/19/2018 MED [...] PC) Documentation of current 01/19/2018 MED GEN (Jessiac's medications (procedure) 12:00:00 AM EDT [facility], PC) [...] PC) Documentation of current 01/04/2018 MED GEN (Ejssica's medications (procedure) 12:00:00 AM EDT [facility], PC) [...] MEDG EN ([facility] current 01/04/2018 MED [...] GEN (Jessica's medications (procedure) 12:00:00 [facility] Documentation of current 01/04/2018 MED GEN (Jessica's medications (procedure) 12:00:00 AM [facility], ) Documentation of current 01/04/2018 MED GEN (Jessica's medications (procedure) 12:00:00 AM ED[facility], ) Documentation of current 01/04/2018 MED GEN (Jessica's medications (procedure) 12:00:00 AM [facility], ) Documentation of current 01/04/2018 MED GEN (Jessica's medications (procedure) 12:00:00 AM [facility], [facility] OFFICE OUTPATIENT VISIT 12/27/2017 MEDG [...] AM EDT naatlie, PC) Documentation of current 10/09/2017 MED GEN [...] (Jessica's medications (procedure) 12:00:00 AM EDT M natlaie, PC) Documentation of current 10/09/2017 MED GEN [...] MEDG EN (Jessica's 15 MINUTES 12:00:00 AM [facility] Medical, PC) Documentation of current 10/09/2017 MED GEN (Jessica's medications (procedure) 12:00:00 AM EDT [facility], PC) OFFICE OUTPATIENT VISIT 10/09/2017 MEDG EN (Jessica's 15 MINUTES 12:00:00 AM [facility], PC) Documentation of current 10/09/2017 MED [...] EDT Lewis estraad, PC) Documentation of current 10/09/2017 MED GEN [...] GEN (Jessica's medications (procedure) 12:00:[address] [facility], ) Documentation of current 07/31/2017 MED GEN (Jessica's medications (procedure) 12:00:[address] [facility], ) Documentation of current 07/31/2017 MED GEN (Jessica's medications (procedure) 12:00:[address] [facility], ) Documentation of current 07/31/2017 MED GEN (Jessica's medications (procedure) 12:00:[address] [facility], ) Documentation of current 07/31/2017 MED GEN (Jessica's medications (procedure) 12:00:[address] [facility], ) Documentation of current 07/31/2017 MED GEN (Jessica's medications (procedure) 12:00:[address] [facility], ) Documentation of current 07/31/2017 MED GEN (Jessica's medications (procedure) 12:00:[address] [facility], ) Documentation of current 07/31/2017 MED GEN (Jessica's medications (procedure) 12:00:[address] [facility], ) OFFICE OUTPATIENT VISIT 07/31/2017 MEDG EN (Jessica's 15 MINUTES 12:00:00 AM EDT [facility], ) GLUC BLD GLUC MNTR DEV 07/31/2017 MEDGE N (Jessica's CLEARED FDA SPEC HOME USE 12:00:00 AM [facility], ) COLLECTION CAPILLARY 07/31/2017 MEDGEN (Jessica's BLOOD SPECIMEN 12:00:00 AM EDT Medical, P C) Documentation of current 07/31/2017 MED GEN (Jessica's medications (procedure) 12:00:[address] [facility], ) OFFICE OUTPATIENT VISIT 07/31/2017 MEDG EN (Jessica's 15 MINUTES 12:00:00 AM EDT Medical, PC) GLUC BLD GLUC MNTR DEV 07/31/2017 MEDGE N (Jessica's CLEARED FDA SPEC HOME USE 12:00:00 AM EDT Medical, PC) COLLECTION CAPILLARY 07/31/2017 MEDGEN (Jessica's BLOOD SPECIMEN 12:00:00 AM EDT Medical, P C) Documentation of current 07/31/2017 MED GEN (Jessica's medications (procedure) 12:00:[address] [facility], PC) Documentation of current 07/31/2017 MED [...] PC) Documentation of current 07/31/2017 MED GEN (Jessiac's medications (procedure) 12:00:00 AM EDT M natalie, [...] 07/31/2017 MEDGEN (Jessica's BLOOD SPECIMEN 12:00:00 AM [facility] Medical, P C) Documentation of current 07/31/2017 [...] GEN (Jessica's medications (procedure) [facility] Documentation of current 07/31/2017 MED GEN (Jessica's medications (procedure) 12:00:00 AM EDT edical, ) OFFICE OUTPATIENT VISIT 07/31/2017 MEDG EN (Jessica's 15 MINUTES 12:00:00 AM [facility] Medical, PC) GLUC BLD GLUC MNTR DEV [...] AM EDT demarocical, PC) Documentation of current 07/31/2017 MED GEN [...] PC) OFFICE OUTPATIENT VISIT 07/31/2017 MEDG EN (Jsesica's 15 MINUTES 12:00:00 AM EDT Medical, PC) [...] GEN (Jessica's medications (procedure) 12:00:00 AM RJ esrtada, CARIDAD) Documentation of current 06/05/2017 MED GEN [...] PC) Documentation of current 06/05/2017 MED GEN (Jesisca's medications (procedure) 12:00:00 AM RJ estrada, CARIDAD) [...] AM JR estrada, PC) Documentation of current 06/05/2017 MED [...] (Jessica's medications (procedure) 12:00:00 AM JR estrada, CARIDAD) Documentation of current 06/05/2017 MED GEN (Jessica's medications (procedure) 12:00:00 AM RJ estrada, PC) Documentation of current 06/05/2017 MED GEN (Jessica's medications (procedure) 12:00:00 AM JR estrada, PC) Documentation of current 06/05/2017 MED [...] CARIDAD) Documentation of current 06/05/2017 MED GEN (Jsesica's [...] estrada, PC) Results ID Date Data Source [id number] 11/28/2019 01:04:00 PM EDT [facility] Name Value Range Interpretation Description Data Sup porting Code Source(s) Document(s ) SARS [facility] coronavirus 2 RNA This lab was ordered by [facility] and reported by [facility]. ID Date Data Source [id number] 11/11/2019 12:00:00 AM EDT [facility], ) Name Value Range Interpretation Code Description Data Kimberly rce(s) Supporting Document(s ) Creatine, 1 mg/24 hr Normal (applies to [facility] (St 24-hr Ur non-numeric Dony's results) Medical, ) Creatine, 0.1 mg/dL Normal (applies to [facility] (St U,mg/dL non-numeric Dony's results) Medical, ) ID Date Data Source [id number] 11/11/2019 12:00:00 AM EDT [facility], [facility] ID Date Data Source [id number] 11/11/2019 12:00:00 AM EDT [facility] ([facility] [...] results) Medical, ) ID Date Data Source [id number] 11/11/2019 12:00:00 AM EDT [facility] ([facility], ) Name Value Range Interpretation Code Description Data Kimberly rce(s) Supporting Document(s ) Creatine, 0.1 mg/dL Normal (applies to [facility] (St U,mg/dL non-numeric Dony's results) Medical, ) Creatine, 1 mg/24 hr Normal (applies to [facility] (St 24-hr Ur non-numeric Dony's results) Medical, ) ID Date Data Source [id number] 11/11/2019 12:00:00 AM EDT [facility], ) Name Value Range Interpretation Description Data Sup porting Code Source(s) Document(s ) Protein,Total, 234.0 Normal (applies to [facility] (St Urine mg/dL non-numeric Dony's results) Medical, ) Prot,24hr 2340 Above high normal MED[facility] (St calculated mg/24 hr Dony's [facility], ) ID Date Data Source [id number] 11/11/2019 12:00:00 AM EDT [facility] ([facility] [...] results) Medical, ) ID Date Data Source [id number] 11/11/2019 12:00:00 AM EDT [facility] ) Name Value Range Interpretation Code Description Data Kimberly rce(s) Supporting Document(s ) Creatine, 1 mg/24 hr Normal (applies to [facility] (St 24-hr Ur non-numeric Dony's results) Medical, ) Creatine, 0.1 mg/dL Normal (applies to [facility] (St U,mg/dL non-numeric Dony's results) Medical, ) ID Date Data Source [id number] 11/11/2019 12:00:00 AM EDT [facility], ) Name Value Range Interpretation Description Data Sup porting Code Source(s) Document(s ) Protein,Total, 234.0 Normal (applies to [facility] (St Urine mg/dL non-numeric [facility] results) [facility], ) Prot,24hr 2340 Above high normal [facility] (St calculated mg/24 hr [facility], ) ID Date Data Source [id number] 11/11/2019 12:00:00 AM EDT [facility] ID Date Data Source [id number] 11/11/2019 12:00:00 AM EDT [facility] ) ID Date Data Source [id number] 11/11/2019 12:00:00 AM EDT [facility], ) ID Date Data Source [id number] 11/11/2019 12:00:00 AM EDT [facility] ([facility] [...] results) Medical, ) ID Date Data Source [id number] 11/11/2019 12:00:00 AM EDT [facility] ([facility], ) Name Value Range Interpretation Code Description Data Kimberly rce(s) Supporting Document(s ) Creatine, 0.1 mg/dL Normal (applies to [facility] (St U,mg/dL non-numeric [facility] results) Medical, ) Creatine, 1 mg/24 hr Normal (applies to [facility] (St 24-hr Ur non-numeric [facility] results) [facility], ) ID Date Data Source [id number] 11/11/2019 12:00:00 AM EDT [facility] ([facility] [...] results) Medical, ) ID Date Data Source [id number] 11/11/2019 12:00:00 AM EDT [facility] ([facility], ) Name Value Range Interpretation Code Description Data Kimberly rce(s) Supporting Document(s ) Creatine, 0.1 mg/dL Normal (applies to [facility] (St U,mg/dL non-numeric [facility] results) [facility], ) Creatine, 1 mg/24 hr Normal (applies to [facility] (St 24-hr Ur non-numeric [facility] results) [facility], ) ID Date Data Source [id number] 11/11/2019 12:00:00 AM EDT [facility] ) Name Value Range Interpretation Description Data Sup porting Code Source(s) Document(s ) Protein,Total, 234.0 Normal (applies to [facility] (St Urine mg/dL non-numeric [facility] results) [facility], ) Prot,24hr 2340 Above high normal [facility] (St calculated mg/24 hr [facility], ) ID Date Data Source [id number] 11/11/2019 12:00:00 AM EDT [facility] ([facility] [...] results) Medical, ) ID Date Data Source [id number] 11/11/2019 12:00:00 AM EDT [facility], ) Name Value Range Interpretation Description Data Sup porting Code Source(s) Document(s ) Prot,24hr 2340 Above high normal [facility] (St calculated mg/24 hr [facility], ) Protein,Total, 234.0 Normal (applies to [facility] (St Urine mg/dL non-numeric [facility] results) Medical, ) ID Date Data Source [id number] 11/11/2019 12:00:00 AM EDT [facility] ([facility] [...] [facility] (St ine, Ur non-numeric [facility] results) [facility]) Metanephr 103 ug/24 Normal (applies to [facility] (St ine, hr non-numeric [facility] U,24hr results) [facility]) ID Date Data Source [id number] 11/11/2019 12:00:00 AM EDT [facility] ([facility] [...] [facility] (St 24-hr Ur non-numeric [facility] results) [facility]) ID Date Data Source [id number] 11/11/2019 12:00:00 AM EDT [facility] ([facility], ) Name Value Range Interpretation Description Data Sup porting Code Source(s) Document(s ) Protein,Total, 234.0 Normal (applies to [facility] (St Urine mg/dL non-numeric [facility] results) [facility]) Prot,24hr 2340 Above high normal [facility] (St calculated mg/24 hr [facility]) ID Date Data Source [id number] 11/11/2019 12:00:00 AM EDT [facility] ([facility], ) Name Value Range Interpretation Code Description Data Kimberly rce(s) Supporting Document(s ) Creatine, 0.1 mg/dL Normal (applies to [facility] (St U,mg/dL non-numeric [facility] results) [facility]) Creatine, 1 mg/24 hr Normal (applies to [facility] (St 24-hr Ur non-numeric [facility] results) [facility]) ID Date Data Source [id number] 11/11/2019 12:00:00 AM EDT [facility] ([facility] [...] results) Medical, ) ID Date Data Source [id number] 11/11/2019 12:00:00 AM EDT [facility] ([facility] [...] results) Medical, ) ID Date Data Source [id number] 11/11/2019 12:00:00 AM EDT [facility] ([facility] [...] results) Medical, ) ID Date Data Source [id number] 11/11/2019 12:00:00 AM EDT [facility] ([facility], ) Name Value Range Interpretation Code Description Data Kimberly rce(s) Supporting Document(s ) Creatine, 1 mg/24 hr Normal (applies to [facility] (St 24-hr Ur non-numeric [facility] results) Medical, ) Creatine, 0.1 mg/dL Normal (applies to [facility] (St U,mg/dL non-numeric [facility] results) [facility], ) ID Date Data Source [id number] 11/11/2019 12:00:00 AM EDT [facility], ) Name Value Range Interpretation Description Data Sup porting Code Source(s) Document(s ) Protein,Total, 234.0 Normal (applies to [facility] (St Urine mg/dL non-numeric [facility] results) [facility], ) Prot,24hr 2340 Above high normal [facility] (St calculated mg/24 hr [facility], ) ID Date Data Source [id number] 11/11/2019 12:00:00 AM EDT [facility], ) Name Value Range Interpretation Code Description Data Kimberly rce(s) Supporting Document(s ) Creatine, 0.1 mg/dL Normal (applies to [facility] (St U,mg/dL non-numeric [facility] results) Medical, ) Creatine, 1 mg/24 hr Normal (applies to [facility] (St 24-hr Ur non-numeric [facility] results) Medical, ) ID Date Data Source [id number] 11/11/2019 12:00:00 AM EDT [facility] ([facility] [...] Data Source Liver 11/05/2019 06:05:00 AM EDT [facility] Profile.[id number] Name Value Range Interpretation Description Data Sup [...] s"> (3.5-5.0 G/DL)</content> ID Date Data Source HematologyRou.[id number] 11/05/2019 06:05:00 AM EDT [facility] 0400 Name Value Range Interpretation Description [...] Basophils 0.0-1.0 <content [facility] [#/volume] in styleCode="Bold [facility] Blood by ">Basophil Medical Automated count [...] (0.0 KCUMM)</content > ID Date Data Source GFR(Creatinine).[id number] 11/05/2019 06:05:00 AM EDT [facility] 0-0400 Name Value Range Interpretation Code Description Data Kimberly rce(s) Supporting Document(s ) UNK > 60 Below low normal <content [facility] styleCode="Bold"> Medical Cent er EGFR </content>30 GFR L<content styleCode="Italic s"> (> 60 GFR)</content> ID Date Data Source Coagulation 11/05/2019 06:05:00 AM [facility] Rout.[id number] EDT Name Value Range Interpretation Description Data [...] cs"> (25.1-36.5 SEC)</content> ID Date Data Source CHMROUTINECCDA.[id number] 11/05/2019 06:05:00 AM EDT [facility] -0400 Name Value Range Interpretation Description [...] (2.5-4.5 MG/DL)</conten t> ID Date Data Source [facility].[id number] 11/05/2019 06:05:00 AM EDT [facility] Name Value Range [...] s"> (7-50 IU/L)</content> ID Date Data Source Urinalysis.[id number] 11/04/2019 05:15:00 PM EDT [facility] 0 Name Value Range Interpretation Description Data [...] by Test d">Urine Medical strip Specific Center [place] </content>1.02 5 <content styleCode="Lesli lics"> (1.015-1.025 )</content> [...] (30-90 MEQ/L)</conten t> ID Date Data Source CHMROUTINECCDA.[id number] 11/04/2019 05:15:00 PM EDT [facility] -0400 Name Value Range Interpretation Description Data Sup porting Code Source(s) Document(s ) Cannabinoids <content Saint [Presence] in styleCode="Jonny [facility] Urine by Screen d">Cannabinoid Medical method >50 ng/mL s Center </content>NEGA TIVE NG/ML (Reference Range: not available)<br/ > ID Date Data Source Liver 11/04/2019 06:07:00 AM EDT [facility] Profile.[id number] Name Value Range Interpretation Description Data Sup [...] low <content Saint [Mass/volume] in normal styleCode="Bold"> [facility] Serum or Plasma Albumin Medical </content>2.6 Center G/DL L<content styleCode="Italic s"> (3.5-5.0 G/DL)</content> ID Date Data Source HematologyRou.[id number] 11/04/2019 06:07:00 AM EDT [facility] 0400 Name Value Range Interpretation [...] (< 1 %)</content> ID Date Data Source GFR(Creatinine).[id number] 11/04/2019 06:07:00 AM EDT [facility] 0-0400 Name Value Range Interpretation Code Description Data Kimberly rce(s) Supporting Document(s ) UNK > 60 Below low normal <content [facility] styleCode="Bold"> Medical Cent er EGFR </content>29 GFR L<content styleCode="Italic s"> (> 60 GFR)</content> ID Date Data Source Coagulation 11/04/2019 06:07:00 AM [facility] Rout.[id number] EDT Name Value Range Interpretation Description Data Sup porting Code Source(s) Document(s ) UNK 9.0-13.0 Above high normal <content Saint styleCode="Bold" Karmen >Protime Medical </content>13.7 Center SEC H<content styleCode="Itali cs"> (9.0-13.0 SEC)</content> aPTT in 25.1-36. <content Saint Platelet poor 5 styleCode="Bold" [facility] plasma by >Partial Medical Coagulation Thromboplastin Center assay Time </content>34.9 SEC<content styleCode="Itali cs"> (25.1-36.5 SEC)</content> INR in 0.80-1.2 Above high normal <content Saint Platelet poor 0 styleCode="Bold" [facility] plasma by >INR Medical Coagulation </content>1.23 # Center assay H<content styleCode="Itali cs"> (0.80-1.20 #)</content> ID Date Data Source CHMROUTINECCDA.[id number] 11/04/2019 06:07:00 AM EDT [facility] Name Value Range Interpretation [...] (6.3-8.2 G/DL)</content > ID Date Data Source CardiacMarkers.[id number] 11/04/2019 06:07:00 AM EDT [facility] -0400 Name Value Range Interpretation Description Data Sup porting Code Source(s) Document(s ) Troponin < 0.034 <content Saint I.cardiac styleCode="Bold K[facility] [Mass/volume ">Troponin I Medical ] in Serum </content>0.023 Center or Plasma NG/ML<content styleCode="Ital ics"> (< 0.034 NG/ML)</content > ID Date Data Source [facility].[id number] 11/04/2019 06:07:00 AM EDT [facility] Name Value Range Interpretation Description Data Sup porting Code Source(s) Document(s ) Sodium 137-145 <content Saint [Moles/volume] in styleCode="Bold"> Zeyad [facility] Serum or Plasma Sodium Medical </content>138 Center MEQ/L<content styleCode="Italic s"> (137-145 MEQ/L)</content> Chloride 98-107 Above high <content [facility] [Moles/volume] in normal styleCode="Bold"> Zeyad [facility] Serum or Plasma Chloride Medical </content>112 [...] <content Saint [Mass/volume] in 2 normal styleCode="Bold"> [facility] hs Serum or Plasma Calcium Medical </content>7.9 [...] s"> (3.5-5.0 G/DL)</content> ID Date Data Source Microbiology.[id number] 11/03/2019 08:30:00 PM EDT [facility] 400 Name Value Range Interpretation Code Description Data Kimberly rce(s) Supporting Document(s ) UNK <item><content [facility] styleCode="Bold"> Medical Cent er Culture Report </content>
<t able><tbody><tr>< td>Specimen Number:</td><td>[id number]</td></tr ><tr><td>Sample Collection Date/Time: </td><td> 0 8:30 PM</td></tr><tr>< td>Specimen Source:</td><td>B LOOD</td></tr><tr ><td>Blood Culture:</td><td> Collection Plate Date: 11/03/2019 20:37 </td></tr><tr><td >Culture Status:</td><td>P reliminary </td></tr><tr><td >Culture Report:</td><td>C ulture in progress </td></tr></tbody ></table></item> UNK <item><content [facility] styleCode="Bold"> Medical Cent er Culture Status </content>
<t able><tbody><tr>< td>Specimen Number:</td><td>[id number]</td></tr ><tr><td>Sample Collection Date/Time: </td><td> 0 8:30 PM</td></tr><tr>< td>Specimen Source:</td><td>B LOOD</td></tr><tr ><td>Culture Report:</td><td>C ulture in progress </td></tr><tr><td >Culture Status:</td><td>P reliminary </td></tr><tr><td >Blood Culture:</td><td> Collection Plate Date: 11/03/2019 20:37 </td></tr></tbody ></table></item> ID Date Data Source Microbiology.[id number] 11/03/2019 08:16:00 PM EDT [facility] 400 Name Value Range Interpretation Code Description Data Kimberly rce(s) Supporting Document(s ) UNK <item><content [facility] styleCode="Bold"> Medical Cent er Culture Report </content>
<t able><tbody><tr>< td>Specimen Number:</td><td>[id number]</td></tr ><tr><td>Sample Collection Date/Time: </td><td> 0 8:16 PM</td></tr><tr>< td>Specimen Source:</td><td>B LOOD</td></tr><tr ><td>Blood Culture:</td><td> Collection Plate Date: 11/03/2019 20:37 </td></tr><tr><td >Culture Status:</td><td>P reliminary </td></tr><tr><td >Culture Report:</td><td>C ulture in progress </td></tr></tbody ></table></item> UNK <item><content [facility] styleCode="Bold"> Medical Cent er Culture Status </content>
<t able><tbody><tr>< td>Specimen Number:</td><td>[id number]</td></tr ><tr><td>Sample Collection Date/Time: </td><td> 0 8:16 PM</td></tr><tr>< td>Specimen Source:</td><td>B LOOD</td></tr><tr ><td>Culture Report:</td><td>C ulture in progress </td></tr><tr><td >Culture Status:</td><td>P reliminary </td></tr><tr><td >Blood Culture:</td><td> Collection Plate Date: 11/03/2019 20:37 </td></tr></tbody ></table></item> ID Date Data Source LIPID.[id number] 11/03/2019 02:55:00 PM EDT [facility] Name Value Range Interpretation Description Data [...] 100 MG/DL)</conten t> ID Date Data Source HematologyRou.[id number] 11/03/2019 02:55:00 PM EDT [facility] 0400 Name Value Range Interpretation [...] ics"> (8.0-11.0 FL)</content> ID Date Data Source GFR(Creatinine).[id number] 11/03/2019 02:55:00 PM EDT [facility] 0-0400 Name Value Range Interpretation Code Description Data Kimberly rce(s) Supporting Document(s ) UNK > 60 Below low normal <content [facility] styleCode="Bold"> Medical Cent er EGFR </content>30 GFR L<content styleCode="Italic s"> (> 60 GFR)</content> ID Date Data Source Coagulation 11/03/2019 02:55:00 PM [facility] ical [facility] Rout.[id number] EDT Name Value Range Interpretation Description Data [...] cs"> (25.1-36.5 SEC)</content> ID Date Data Source CHMROUTINECCDA.[id number] 11/03/2019 02:55:00 PM EDT [facility] -0400 Name Value Range Interpretation Description Data Sup porting Code Source(s) Document(s ) Natriuretic < 125 Above high normal <content [facility] peptide.B styleCode="Jonny [facility] prohormone d">NT Pro BNP Medical N-Terminal </content>1610 Center [Mass/volume] 0 PG/ML in Serum or H<content Plasma styleCode="Lesli lics"> (< 125 PG/ML)</conten t> ID Date Data Source CardiacMarkers.[id number] 11/03/2019 02:55:00 PM EDT [facility] Name Value Range Interpretation Description Data Sup porting Code Source(s) Document(s ) Troponin < 0.034 <content [facility] I.cardiac styleCode="Bold Karmen [Mass/volume ">Troponin I Medical ] in Serum </content>0.021 Center or Plasma NG/ML<content styleCode="Ital ics"> (< 0.034 NG/ML)</content > ID Date Data Source BMP.[id number] 11/03/2019 02:55:00 PM EDT [facility] Name Value Range Interpretation Description Data [...] (> 60 GFR)</content> ID Date Data Source [id number] 11/03/2019 12:00:00 AM EDT [facility] Name Value Range Interpretation Code Description Data Kimberly rce(s) Supporting Document(s ) 2019-nCoV [facility]VTOH RNA XXX REBEKA+probe- Imp This lab was ordered by [facility] and reported by [employer] [facility]. ID Date Data Source [id number] 10/16/2019 12:00:00 AM EDT [facility] ([facility], ) Name Value Range Interpretation Code Description Data Kimberly rce(s) Supporting Document(s ) ID Date Data Source [id number] 10/16/2019 12:00:00 AM EDT [facility] Name Value Range Interpretation Code Description Data Kimberly rce(s) Supporting Document(s ) PDF . Normal (applies to [facility] (St non-numeric results) [facility]) ID Date Data Source [id number] 10/16/2019 12:00:00 AM EDT [facility] Name Value Range Interpretation Code Description Data Supporting Source(s) Document(s ) PTH, Intact 83 pg/mL Above high normal [facility] ([facility]) ID Date Data Source [id number] 10/16/2019 12:00:00 AM EDT [facility] Name Value Range Interpretation Code Description Data Supporting Source(s) Document(s ) HBsAg Negative Normal (applies to [facility] (St Screen non-numeric [facility] results) [facility], PC) ID Date Data Source [id number] 10/16/2019 12:00:00 AM EDT [facility] Name Value Range Interpretation Code Description Data Supporting Source(s) Document(s ) Ferritin, 133 ng/mL Normal (applies to [facility] (St Serum non-numeric [facility] results) [facility], [facility]) ID Date Data Source [id number] 10/16/2019 12:00:00 AM EDT [facility] Name Value Range Interpretation Code Description Data Supporting Source(s) Document(s ) JAMAR Direct Negative Normal (applies to [facility] (St non-numeric [facility] results) [facility], PC) ID Date Data Source [id number] 10/16/2019 12:00:00 AM EDT [facility] Name Value Range Interpretation Description Data Sup porting Code Source(s) Document(s ) Deprecated 4.0 mg/dL Normal (applies to [facility] (St Phosphorus non-numeric [facility] [Mass/time] in results) Medical, PC) 24 hour Urine ID Date Data Source [id number] 10/16/2019 12:00:00 AM EDT [facility] Name Value Range Interpretation Code Description Data Kimberly rce(s) Supporting Document(s ) Comment: Normal (applies to [facility] (St non-numeric results) [facility]) ID Date Data Source [id number] 10/16/2019 12:00:00 AM EDT [facility] Name Value Range Interpretation Code Description Data Kimberly rce(s) Supporting Document(s ) HCV Ab <0.1 Normal (applies to [facility] (St non-numeric results) [facility]) ID Date Data Source [id number] 10/16/2019 12:00:00 AM EDT [facility] Name Value Range Interpretation Code Description Data Kimberly rce(s) Supporting Document(s ) Anti-PLA2R <1.8 Normal (applies to [facility] (St non-numeric results) [facility]) ID Date Data Source [id number] 10/16/2019 12:00:00 AM EDT [facility] Name Value Range Interpretation Code Description Data Kimberly rce(s) Supporting Document(s ) JERMAINE Normal (applies to [facility] (St Interpreta non-numeric results) [facility] M edical, tion:U PC) ID Date Data Source [id number] 10/16/2019 12:00:00 AM EDT [facility] Name Value Range Interpretation Code Description Data Kimberly rce(s) Supporting Document(s ) Anti-DNA 1 IU/mL Normal (applies to [facility] (St (DS) Ab Qn non-numeric [facility] results) [facility], PC) ID Date Data Source [id number] 10/16/2019 12:00:00 AM EDT [facility] Name Value Range Interpretation Description Data Sup porting Code Source(s) Document(s ) HIV Screen Non Normal (applies [facility] (St 4th Reactive to non-numeric [facility] Generation results) Medical, PC) wRfx ID Date Data Source [id number] 10/16/2019 12:00:00 AM EDT [facility] Name Value Range Interpretation Description Data Sup porting Code Source(s) Document(s ) Vitamin D, 8.0 ng/mL Below low normal [facility] (St 25-Hydroxy [facility], [facility]) ID Date Data Source [id number] 10/16/2019 12:00:00 AM EDT [facility] ) Name Value Range Interpretation Code Description Data Kimberly rce(s) Supporting Document(s ) RA Latex <10.0 Normal (applies to [facility] (St Turbid. non-numeric results) [facility], ) ID Date Data Source [id number] 10/16/2019 12:00:00 AM EDT [facility] Name Value Range Interpretation Description Data Sup porting Code Source(s) Document(s ) Complement C3, 117 mg/dL Normal (applies to [facility] (St Serum non-numeric [facility] results) [facility], ) ID Date Data Source [id number] 10/16/2019 12:00:00 AM EDT [facility] ) Name Value Range Interpretation Description Data Sup porting Code Source(s) Document(s ) Hep B Non Reactive Normal (applies to [facility] ( St Surface Ab, non-numeric [facility] Qual results) [facility], ) ID Date Data Source [id number] 10/16/2019 12:00:00 AM EDT [facility] ) Name Value Range Interpretation Description Data Sup porting Code Source(s) Document(s ) Complement C4, 33 mg/dL Normal (applies to [facility] (St Serum non-numeric [facility] results) [facility], ) ID Date Data Source [id number] 10/16/2019 12:00:00 AM EDT [facility] ) Name Value Range Interpretation Description Data Sup porting Code Source(s) Document(s ) Hemoglobin A1c 6.7 % Above high normal [facility] (St in Blood [facility], ) ID Date Data Source [id number] 10/16/2019 12:00:00 AM EDT [facility] ) Name Value Range Interpretation Code Description Data Kimberly rce(s) Supporting Document(s ) Normetane 256.1 Above high normal [facility] (St phrine, pg/mL [facility], ) Metanephr 144.2 Above high normal [facility] (St ine, Pl pg/mL [facility], ) ID Date Data Source [id number] 10/16/2019 12:00:00 AM EDT [facility] ([facility], ) Name Value Range Interpretation Code Description Data Supporting Source(s) Document(s ) Albumin, 4217.2 Normal (applies to [facility] (St Urine ug/mL non-numeric [facility] results) [facility], ) Alb/Creat 2707 mg/g Above high normal [facility] (St Ratio creat [facility], ) ID Date Data Source [id number] 10/16/2019 12:00:00 AM EDT [facility] ([facility], ) Name Value Range Interpretation Description Data Sup porting Code Source(s) Document(s ) Free [place] 593.88 Above high normal [facility] (St Lt mg/L [facility], ) Free Lambda 130.75 Above high normal [facility] (St Lt mg/L [facility], ) [place]clenny/Lambd 4.54 Normal (applies to [facility] (S t a Ratio,U non-numeric [facility] results) [facility], ) ID Date Data Source [id number] 10/16/2019 12:00:00 AM EDT [facility], ) Name Value Range Interpretation Description Data Sup porting Code Source(s) Document(s ) Free [place] 57.8 mg/L Above high normal [facility] (St Lt Chains,S [facility], ) Free Lambda 27.9 mg/L Above high normal [facility] (St Lt Chains,S [facility], ) Macclenny/Lambd 2.07 Above high normal [facility] (St a Ratio,S [facility], ) ID Date Data Source [id number] 10/16/2019 12:00:00 AM EDT [facility] ([facility], ) ID Date Data Source [id number] 10/16/2019 12:00:00 AM EDT [facility] ([facility] ) ID Date Data Source [id number] 10/16/2019 12:00:00 AM EDT [facility] ([facility] ) ID Date Data Source [id number] 10/16/2019 12:00:00 AM EDT [facility] ([facility] [...] Serum or Plasma ID Date Data Source [id number] 10/16/2019 12:00:00 AM EDT [facility] ([facility] [...] results) Medical, PC) ID Date Data Source [id number] 10/16/2019 12:00:00 AM EDT [facility] Name Value Range Interpretation Description Data Sup porting Code Source(s) Document(s ) Microalbumin 3.1 g/dL Normal (applies [facility] (St [Mass/time] in to non-numeric [facility] Urine collected results) Medical, for unspecified PC) duration Fllvp-7-Lpdtjxwq 0.3 g/dL Normal (applies [facility] (St to non-numeric [facility] results) Medical, PC) Beta globulin 0.8 g/dL Normal (applies [facility] (St [Mass/volume] in to non-numeric [facility] Urine by results) Medical, Electrophoresis PC) Kxmwc-5-Sldenwzy 0.8 g/dL Normal (applies [facility] (St to [...] results) Medical, PC) ID Date Data Source [id number] 10/16/2019 12:00:00 AM EDT [facility] ([facility] [place] [...] results) [facility], PC) ID Date Data Source [id number] 10/16/2019 12:00:00 AM EDT [facility] ([facility] [place] [...] by Light microscopy ID Date Data Source [id number] 10/16/2019 12:00:00 AM EDT [facility] ([facility] [place] [...] Serum or Plasma ID Date Data Source [id number] 10/16/2019 12:00:00 AM EDT [facility] ([facility] [place] [...] results) Medical, ) ID Date Data Source [id number] 10/16/2019 12:00:00 AM EDT [facility] ([facility], ) Name Value Range Interpretation Description Data Sup porting Code Source(s) Document(s ) Antimyeloperoxidase <9.0 Normal (applies MEDG EN (St (MPO) Abs to non-numeric [facility] results) Medical, ) Antiproteinase 3 <3.5 Normal (applies [facility] (St (VT-3) Abs to non-numeric [facility] results) Medical, ) Cytoplasmic (C-ANCA) <1:20 Normal (applies MED GEN (St to non-numeric [facility] results) Medical, ) Perinuclear (P-ANCA) <1:20 Normal (applies MED GEN (St to non-numeric [facility] results) Medical, ) Atypical pANCA <1:20 Normal (applies [facility] (S t to non-numeric [facility] results) Medical, ) ID Date Data Source [id number] 10/16/2019 12:00:00 AM EDT [facility] ([facility], ) Name Value Range Interpretation Code Description Data Kimberly rce(s) Supporting Document(s ) ID Date Data Source [id number] 10/16/2019 12:00:00 AM EDT [facility] ([facility], ) Name Value Range Interpretation Code Description Data Kimberly rce(s) Supporting Document(s ) PDF . Normal (applies to [facility] (St non-numeric results) [facility] Nv dical, ) ID Date Data Source [id number] 10/16/2019 12:00:00 AM EDT [facility] ([facility], ) Name Value Range Interpretation Code Description Data Supporting Source(s) Document(s ) PTH, Intact 83 pg/mL Above high normal [facility] ([place], ) ID Date Data Source [id number] 10/16/2019 12:00:00 AM EDT [facility] ([facility], ) Name Value Range Interpretation Code Description Data Supporting Source(s) Document(s ) HBsAg Negative Normal (applies to [facility] (St Screen non-numeric [facility] results) Medical, ) ID Date Data Source [id number] 10/16/2019 12:00:00 AM EDT [facility] ([facility]) Name Value Range Interpretation Code Description Data Supporting Source(s) Document(s ) Ferritin, 133 ng/mL Normal (applies to [facility] (St Serum non-numeric [facility] results) Medical, ) ID Date Data Source [id number] 10/16/2019 12:00:00 AM EDT [facility] ([facility]) Name Value Range Interpretation Code Description Data Supporting Source(s) Document(s ) JAMAR Direct Negative Normal (applies to [facility] (St non-numeric [facility] results) Medical, ) ID Date Data Source [id number] 10/16/2019 12:00:00 AM EDT [facility] ([facility]) Name Value Range Interpretation Description Data Sup porting Code Source(s) Document(s ) Deprecated 4.0 mg/dL Normal (applies to [facility] (St Phosphorus non-numeric [facility] [Mass/time] in results) Medical, ) 24 hour Urine ID Date Data Source [id number] 10/16/2019 12:00:00 AM EDT [facility] ([facility]) Name Value Range Interpretation Code Description Data Kimberly rce(s) Supporting Document(s ) Comment: Normal (applies to [facility] (St non-numeric results) [facility], PC) ID Date Data Source [id number] 10/16/2019 12:00:00 AM EDT [facility] ([facility]) Name Value Range Interpretation Code Description Data Kimberly rce(s) Supporting Document(s ) HCV Ab <0.1 Normal (applies to [facility] (St non-numeric results) [facility], PC) ID Date Data Source [id number] 10/16/2019 12:00:00 AM EDT [facility] ([facility]) Name Value Range Interpretation Code Description Data Kimberly rce(s) Supporting Document(s ) Anti-PLA2R <1.8 Normal (applies to [facility] (St non-numeric results) [facility], PC) ID Date Data Source [id number] 10/16/2019 12:00:00 AM EDT [facility] ([facility]) Name Value Range Interpretation Code Description Data Kimberly rce(s) Supporting Document(s ) JERMAINE Normal (applies to [facility] (St Interpreta non-numeric results) [facility] M edical, tion:U PC) ID Date Data Source [id number] 10/16/2019 12:00:00 AM EDT [facility] ([facility], ) Name Value Range Interpretation Code Description Data Kimberly rce(s) Supporting Document(s ) Anti-DNA 1 IU/mL Normal (applies to [facility] (St (DS) Ab Qn non-numeric [facility] results) [facility], ) ID Date Data Source [id number] 10/16/2019 12:00:00 AM EDT [facility] ([facility], ) Name Value Range Interpretation Description Data Sup porting Code Source(s) Document(s ) HIV Screen Non Normal (applies [facility] (St 4th Reactive to non-numeric [facility] Generation results) [facility], ) wRfx ID Date Data Source [id number] 10/16/2019 12:00:00 AM EDT [facility] ([facility], ) Name Value Range Interpretation Description Data Sup porting Code Source(s) Document(s ) Vitamin D, 8.0 ng/mL Below low normal MED[facility] (St 25-Hydroxy [facility], ) ID Date Data Source [id number] 10/16/2019 12:00:00 AM EDT [facility] ([facility], ) Name Value Range Interpretation Code Description Data Kimberly rce(s) Supporting Document(s ) RA Latex <10.0 Normal (applies to [facility] (St Turbid. non-numeric results) [facility], ) ID Date Data Source [id number] 10/16/2019 12:00:00 AM EDT [facility] ([facility], ) Name Value Range Interpretation Description Data Sup porting Code Source(s) Document(s ) Antimyeloperoxidase <9.0 Normal (applies MEDG EN (St (MPO) Abs to non-numeric [facility] results) Medical, ) Antiproteinase 3 <3.5 Normal (applies [facility] (St (VT-3) Abs to non-numeric [facility] results) Medical, ) Cytoplasmic (C-ANCA) <1:20 Normal (applies MED GEN (St to non-numeric [facility] results) [facility], ) Perinuclear (P-ANCA) <1:20 Normal (applies MED GEN (St to non-numeric [facility] results) [facility], PC) Atypical pANCA <1:20 Normal (applies [facility] (S t to non-numeric [facility] results) [facility], PC) ID Date Data Source [id number] 10/16/2019 12:00:00 AM EDT [facility] ([facility]) Name Value Range Interpretation Code Description Data Kimberly rce(s) Supporting Document(s ) ID Date Data Source [id number] 10/16/2019 12:00:00 AM EDT [facility] ([facility]) Name Value Range Interpretation Code Description Data Kimberly rce(s) Supporting Document(s ) PDF . Normal (applies to [facility] (St non-numeric results) [facility] d[facility], PC) ID Date Data Source [id number] 10/16/2019 12:00:00 AM EDT [facility] ([facility]) Name Value Range Interpretation Code Description Data Supporting Source(s) Document(s ) PTH, Intact 83 pg/mL Above high normal [facility] ([facility]) ID Date Data Source [id number] 10/16/2019 12:00:00 AM EDT [facility] ([facility]) Name Value Range Interpretation Code Description Data Supporting Source(s) Document(s ) HBsAg Negative Normal (applies to [facility] (St Screen non-numeric [facility] results) [facility], PC) ID Date Data Source [id number] 10/16/2019 12:00:00 AM EDT [facility] ([facility]) Name Value Range Interpretation Code Description Data Supporting Source(s) Document(s ) Ferritin, 133 ng/mL Normal (applies to [facility] (St Serum non-numeric [facility] results) [facility], PC) ID Date Data Source [id number] 10/16/2019 12:00:00 AM EDT [facility] ([facility]) Name Value Range Interpretation Code Description Data Supporting Source(s) Document(s ) JAMAR Direct Negative Normal (applies to [facility] (St non-numeric [facility] results) [facility], PC) ID Date Data Source [id number] 10/16/2019 12:00:00 AM EDT [facility] ([facility]) Name Value Range Interpretation Description Data Sup porting Code Source(s) Document(s ) Deprecated 4.0 mg/dL Normal (applies to [facility] (St Phosphorus non-numeric [facility] [Mass/time] in results) Medical, PC) 24 hour Urine ID Date Data Source [id number] 10/16/2019 12:00:00 AM EDT [facility] ([facility]) Name Value Range Interpretation Code Description Data Kimberly rce(s) Supporting Document(s ) Comment: Normal (applies to [facility] (St non-numeric results) [facility], [facility]) ID Date Data Source [id number] 10/16/2019 12:00:00 AM EDT [facility] ([facility]) Name Value Range Interpretation Code Description Data Kimberly rce(s) Supporting Document(s ) HCV Ab <0.1 Normal (applies to [facility] (St non-numeric results) [facility], [facility]) ID Date Data Source [id number] 10/16/2019 12:00:00 AM EDT [facility] ([facility]) Name Value Range Interpretation Code Description Data Kimberly rce(s) Supporting Document(s ) Anti-PLA2R <1.8 Normal (applies to [facility] (St non-numeric results) [facility], [facility]) ID Date Data Source [id number] 10/16/2019 12:00:00 AM EDT [facility] ([facility]) Name Value Range Interpretation Code Description Data Kimberly rce(s) Supporting Document(s ) JERMAINE Normal (applies to [facility] (St Interpreta non-numeric results) [facility] M edical, tion:U PC) ID Date Data Source [id number] 10/16/2019 12:00:00 AM EDT [facility] ([facility]) Name Value Range Interpretation Code Description Data Kimberly rce(s) Supporting Document(s ) Anti-DNA 1 IU/mL Normal (applies to [facility] (St (DS) Ab Qn non-numeric [facility] results) Medical, PC) ID Date Data Source [id number] 10/16/2019 12:00:00 AM EDT [facility] ([facility]) Name Value Range Interpretation Description Data Sup porting Code Source(s) Document(s ) HIV Screen Non Normal (applies [facility] (St 4th Reactive to non-numeric [facility] Generation results) [facility], ) wRfx ID Date Data Source [id number] 10/16/2019 12:00:00 AM EDT [facility] ([facility] [place] [facility], ) Name Value Range Interpretation Description Data Sup porting Code Source(s) Document(s ) Vitamin D, 8.0 ng/mL Below low normal [facility] (St 25-Hydroxy [facility], ) ID Date Data Source [id number] 10/16/2019 12:00:00 AM EDT [facility] ([facility] [place], ) Name Value Range Interpretation Code Description Data Kimberly rce(s) Supporting Document(s ) RA Latex <10.0 Normal (applies to [facility] (St Turbid. non-numeric results) [facility], ) ID Date Data Source [id number] 10/16/2019 12:00:00 AM EDT [facility] ([facility] [place], ) Name Value Range Interpretation Description Data Sup porting Code Source(s) Document(s ) Complement C3, 117 mg/dL Normal (applies to [facility] (St Serum non-numeric [facility] results) [facility], ) ID Date Data Source [id number] 10/16/2019 12:00:00 AM EDT [facility] ([facility] [place], ) Name Value Range Interpretation Description Data Sup porting Code Source(s) Document(s ) Hep B Non Reactive Normal (applies to [facility] ( St Surface Ab, non-numeric [facility] Qual results) [facility], ) ID Date Data Source [id number] 10/16/2019 12:00:00 AM EDT [facility] ([facility] [place], ) Name Value Range Interpretation Description Data Sup porting Code Source(s) Document(s ) Complement C4, 33 mg/dL Normal (applies to [facility] (St Serum non-numeric [facility] results) [facility], ) ID Date Data Source [id number] 10/16/2019 12:00:00 AM EDT [facility] ([facility] [place], ) Name Value Range Interpretation Description Data Sup porting Code Source(s) Document(s ) Hemoglobin A1c 6.7 % Above high normal MED[facility] (St in Blood [facility], ) ID Date Data Source [id number] 10/16/2019 12:00:00 AM EDT [facility] ([facility]) Name Value Range Interpretation Code Description Data Kimberly rce(s) Supporting Document(s ) Normetane 256.1 Above high normal [facility] (St phrine, pg/mL [facility], [facility]) Metanephr 144.2 Above high normal [facility] (St ine, Pl pg/mL [facility], [facility]) ID Date Data Source [id number] 10/16/2019 12:00:00 AM EDT [facility] ([facility]) Name Value Range Interpretation Code Description Data Supporting Source(s) Document(s ) Albumin, 4217.2 Normal (applies to [facility] (St Urine ug/mL non-numeric [facility] results) Medical, PC) Alb/Creat 2707 mg/g Above high normal [facility] (St Ratio creat [facility], [facility]) ID Date Data Source [id number] 10/16/2019 12:00:00 AM EDT [facility] ([facility]) Name Value Range Interpretation Description Data Sup porting Code Source(s) Document(s ) Free [place] 593.88 Above high normal [facility] (St Lt mg/L [facility], PC) Free Lambda 130.75 Above high normal [facility] (St Lt mg/L [facility], [facility]) [place]/Lambd 4.54 Normal (applies to MED[facility] (S t a Ratio,U non-numeric [facility] results) Medical, ) ID Date Data Source [id number] 10/16/2019 12:00:00 AM EDT [facility] ([facility]) Name Value Range Interpretation Description Data Sup porting Code Source(s) Document(s ) Free [place] 57.8 mg/L Above high normal [facility] (St Lt Chains,S [facility], [facility]) Free Lambda 27.9 mg/L Above high normal [facility] (St Lt Chains,S [facility], [facility]) [place]/Lambd 2.07 Above high normal [facility] (St a Ratio,S [facility], [facility]) ID Date Data Source [id number] 10/16/2019 12:00:00 AM EDT [facility] ([facility] [place], ) ID Date Data Source [id number] 10/16/2019 12:00:00 AM EDT [facility] ([facility] [place], ) ID Date Data Source [id number] 10/16/2019 12:00:00 AM EDT [facility] ([facility] [place] [...] results) Medical, ) ID Date Data Source [id number] 10/16/2019 12:00:00 AM EDT [facility] ([facility] [place] [...] Medical, ) Plasma ID Date Data Source [id number] 10/16/2019 12:00:00 AM EDT [facility] ([facility] [place] [...] results) Medical, ) ID Date Data Source [id number] 10/16/2019 12:00:00 AM EDT [facility] ([facility], ) Name Value Range Interpretation Description Data Sup porting Code Source(s) Document(s ) Microalbumin 3.1 g/dL Normal (applies [facility] (St [Mass/time] in to non-numeric [facility] Urine collected results) Medical, for unspecified PC) duration Ngpkt-3-Ogtgyqui 0.3 g/dL Normal (applies [facility] (St to non-numeric [facility] results) Medical, ) Nylkl-7-Rbfuwcjw 0.8 g/dL Normal (applies [facility] (St to [...] results) Medical, PC) ID Date Data Source [id number] 10/16/2019 12:00:00 AM EDT [facility] ([facility] [place] [...] results) Medical, ) ID Date Data Source [id number] 10/16/2019 12:00:00 AM EDT [facility] ([facility] [place] [...] by Light microscopy ID Date Data Source [id number] 10/16/2019 12:00:00 AM EDT [facility] ([facility] [place] [...] Serum or Plasma ID Date Data Source [id number] 10/16/2019 12:00:00 AM EDT [facility] ([facility] [place] [...] (applies MEDGEN (St to non-numeric [facility] results) [facility]) MCHC 33.2 Normal (applies MED[facility] (St g/dL to non-numeric [facility] results) [facility]) MCH 28.4 pg Normal (applies [facility] (St to non-numeric [facility] results) [facility]) RDW 13.5 % Normal (applies MED[facility] (St [...] (applies MEDGEN (St to non-numeric [facility] results) [facility]) Neutrophils 6.6 Normal (applies MEDGEN (St (Absolute) x10E3/uL to non-numeric [facility] results) [facility], ) Basos 0 % Normal (applies [facility] (St to non-numeric [facility] results) [facility]) Lymphs 0.8 Normal (applies [facility] (St (Absolute) [...] [facility], ) ID Date Data Source [id number] 10/16/2019 12:00:00 AM EDT [facility] ([facility] [place] [facility], ) Name Value Range Interpretation Description Data Sup porting Code Source(s) Document(s ) Antimyeloperoxidase <9.0 Normal (applies MEDG EN (St (MPO) Abs to non-numeric [facility] results) [facility], ) Antiproteinase 3 <3.5 Normal (applies [facility] (St (VT-3) Abs to non-numeric [facility] results) [facility], ) ID Date Data Source [id number] 10/16/2019 12:00:00 AM EDT [facility] ([facility] [place] [facility], ) Name Value Range Interpretation Description Data Sup porting Code Source(s) Document(s ) Vitamin D, 8.0 ng/mL Below low normal [facility] (St 25-Hydroxy [facility], ) ID Date Data Source [id number] 10/16/2019 12:00:00 AM EDT [facility] ([facility], ) Name Value Range Interpretation Code Description Data Kimberly rce(s) Supporting Document(s ) RA Latex <10.0 Normal (applies to MEDGEN (St Turbid. non-numeric results) [facility], ) ID Date Data Source [id number] 10/16/2019 12:00:00 AM EDT [facility] ([facility], ) Name Value Range Interpretation Description Data Sup porting Code Source(s) Document(s ) Complement C3, 117 mg/dL Normal (applies to [facility] (St Serum non-numeric [facility] results) [facility], ) ID Date Data Source [id number] 10/16/2019 12:00:00 AM EDT [facility] ([facility] [place], ) Name Value Range Interpretation Description Data Sup porting Code Source(s) Document(s ) Hep B Non Reactive Normal (applies to MEDGEN ( St Surface Ab, non-numeric [facility] Qual results) [facility], ) ID Date Data Source [id number] 10/16/2019 12:00:00 AM EDT [facility] ([facility] [place] [facility], ) Name Value Range Interpretation Description Data Sup porting Code Source(s) Document(s ) Complement C4, 33 mg/dL Normal (applies to [facility] (St Serum non-numeric [facility] results) [facility], ) ID Date Data Source [id number] 10/16/2019 12:00:00 AM EDT [facility] ([facility] [place], ) Name Value Range Interpretation Description Data Sup porting Code Source(s) Document(s ) Hemoglobin A1c 6.7 % Above high normal [facility] (St in Blood [facility], ) ID Date Data Source [id number] 10/16/2019 12:00:00 AM EDT [facility] ([facility] [place], ) Name Value Range Interpretation Code Description Data Kimberly rce(s) Supporting Document(s ) Normetane 256.1 Above high normal [facility] (St phrine, pg/mL [facility], ) Metanephr 144.2 Above high normal MED[facility] (St ine, Pl pg/mL [facility], ) ID Date Data Source [id number] 10/16/2019 12:00:00 AM EDT [facility] ([facility] [place], ) Name Value Range Interpretation Code Description Data Supporting Source(s) Document(s ) Albumin, 4217.2 Normal (applies to MEDGEN (St Urine ug/mL non-numeric [facility] results) [facility], ) Alb/Creat 2707 mg/g Above high normal [facility] (St Ratio creat [facility], ) ID Date Data Source [id number] 10/16/2019 12:00:00 AM EDT [facility] ([facility], ) Name Value Range Interpretation Description Data Sup porting Code Source(s) Document(s ) Free [place] 593.88 Above high normal MED[facility] (St Lt mg/L [facility], ) Free Lambda 130.75 Above high normal [facility] (St Lt mg/L [facility] Chains,Ur [facility], ) [place]/Lambd 4.54 Normal (applies to MEDGEN (S t a Ratio,U non-numeric [facility] results) [facility], ) ID Date Data Source [id number] 10/16/2019 12:00:00 AM EDT [facility] ([facility], ) Name Value Range Interpretation Description Data Sup porting Code Source(s) Document(s ) Free [place] 57.8 mg/L Above high normal MED[facility] (St Lt Chains,S [facility], ) Free Lambda 27.9 mg/L Above high normal MED[facility] (St Lt Chains,S [facility], ) [place]/Lambd 2.07 Above high normal [facility] (St a Ratio,S [facility], ) ID Date Data Source [id number] 10/16/2019 12:00:00 AM EDT [facility] ([facility], ) Name Value Range Interpretation Code Description Data Supporting Source(s) Document(s ) Protein/Cr 3963 mg/g Above high normal MEDGEN (St eat Ratio creat [facility], ) Creatinine 155.8 Normal (applies to MEDGEN (St , Urine mg/dL non-numeric [facility] results) [facility], ) ID Date Data Source [id number] 10/16/2019 12:00:00 AM EDT [facility] ([facility] [place] [...] results) Medical, PC) ID Date Data Source [id number] 10/16/2019 12:00:00 AM EDT [facility] ([facility] [place] [...] Serum or Plasma ID Date Data Source [id number] 10/16/2019 12:00:00 AM EDT [facility] ([facility] [place], ) Name Value Range Interpretation Description Data Sup porting Code Source(s) Document(s ) Zhkrw-6-Ltchdesp 0.3 g/dL Normal (applies MED[facility] (St to non-numeric [facility] results) Medical, PC) Microalbumin 3.1 g/dL Normal (applies MEDGEN (St [Mass/time] in to non-numeric [facility] Urine collected results) Medical, for unspecified PC) duration Fbokz-1-Puofjuau 0.8 g/dL Normal (applies MEDGEN (St to [...] [facility], ) ID Date Data Source [id number] 10/16/2019 12:00:00 AM EDT [facility] ([facility] [...] by Light microscopy ID Date Data Source [id number] 10/16/2019 12:00:00 AM EDT [facility] ([facility] [place] [...] [facility], ) ID Date Data Source [id number] 10/16/2019 12:00:00 AM EDT [facility] ([facility], ) Name Value Range Interpretation Description Data Sup porting Code Source(s) Document(s ) Antiproteinase 3 <3.5 Normal (applies MEDGEN (St (VT-3) Abs to non-numeric [facility] results) Medical, PC) [...] results) Medical, PC) ID Date Data Source [id number] 10/16/2019 12:00:00 AM EDT [facility] ([facility]) Name Value Range Interpretation Code Description Data Kimberly rce(s) Supporting Document(s ) ID Date Data Source [id number] 10/16/2019 12:00:00 AM EDT [facility] ([facility]) Name Value Range Interpretation Code Description Data Kimberly rce(s) Supporting Document(s ) PDF . Normal (applies to MEDGEN (St non-numeric results) [facility], ) ID Date Data Source [id number] 10/16/2019 12:00:00 AM EDT [facility] ([facility]) Name Value Range Interpretation Code Description Data Supporting Source(s) Document(s ) PTH, Intact 83 pg/mL Above high normal MEDGEN ([facility]) ID Date Data Source [id number] 10/16/2019 12:00:00 AM EDT [facility] ([facility] Name Value Range Interpretation Code Description Data Supporting Source(s) Document(s ) Ferritin, 133 ng/mL Normal (applies to [facility] (St Serum non-numeric [facility]) [facility]) ID Date Data Source [id number] 10/16/2019 12:00:00 AM EDT [facility] ([facility] Name Value Range Interpretation Code Description Data Supporting Source(s) Document(s ) JAMAR Direct Negative Normal (applies to [facility] (St non-numeric [facility]) [facility]) ID Date Data Source [id number] 10/16/2019 12:00:00 AM EDT [facility] ([facility] Name Value Range Interpretation Description Data Sup porting Code Source(s) Document(s ) Deprecated 4.0 mg/dL Normal (applies to [facility] (St Phosphorus non-numeric [facility] [Mass/time] in results) [facility]) 24 hour Urine ID Date Data Source [id number] 10/16/2019 12:00:00 AM EDT [facility] ([facility] Name Value Range Interpretation Code Description Data Kimberly rce(s) Supporting Document(s ) Comment: Normal (applies to [facility] (St non-numeric results) [facility] ID Date Data Source [id number] 10/16/2019 12:00:00 AM EDT [facility] ([facility] Name Value Range Interpretation Code Description Data Kimberly rce(s) Supporting Document(s ) HCV Ab <0.1 Normal (applies to [facility] (St non-numeric results) [facility]) ID Date Data Source [id number] 10/16/2019 12:00:00 AM EDT [facility] ([facility] Name Value Range Interpretation Code Description Data Kimberly rce(s) Supporting Document(s ) Anti-PLA2R <1.8 Normal (applies to [facility] (St non-numeric results) [facility]) ID Date Data Source [id number] 10/16/2019 12:00:00 AM EDT [facility] ([facility] Name Value Range Interpretation Code Description Data Kimberly rce(s) Supporting Document(s ) JERMAINE Normal (applies to [facility] (St Interpreta non-numeric results) [facility], tion:U PC) ID Date Data Source [id number] 10/16/2019 12:00:00 AM EDT [facility] ([facility] Name Value Range Interpretation Code Description Data Kimberly rce(s) Supporting Document(s ) Anti-DNA 1 IU/mL Normal (applies to [facility] (St (DS) Ab Qn non-numeric [facility]) [facility]) ID Date Data Source [id number] 10/16/2019 12:00:00 AM EDT [facility] ([facility] Name Value Range Interpretation Description Data Sup porting Code Source(s) Document(s ) HIV Screen Non Normal (applies [facility] (St 4th Reactive to non-numeric [facility] Generation results) [facility], ) wRfx ID Date Data Source [id number] 10/16/2019 12:00:00 AM EDT [facility] ([facility], ) Name Value Range Interpretation Description Data Sup porting Code Source(s) Document(s ) Vitamin D, 8.0 ng/mL Below low normal [facility] (St 25-Hydroxy [facility], ) ID Date Data Source [id number] 10/16/2019 12:00:00 AM EDT [facility] ([facility] ) Name Value Range Interpretation Code Description Data Kimberly rce(s) Supporting Document(s ) RA Latex <10.0 Normal (applies to [facility] (St Turbid. non-numeric results) [facility], ) ID Date Data Source [id number] 10/16/2019 12:00:00 AM EDT [facility] ([facility], ) Name Value Range Interpretation Description Data Sup porting Code Source(s) Document(s ) Complement C3, 117 mg/dL Normal (applies to [facility] (St Serum non-numeric [facility] results) [facility], ) ID Date Data Source [id number] 10/16/2019 12:00:00 AM EDT [facility] ([facility], ) Name Value Range Interpretation Description Data Sup porting Code Source(s) Document(s ) Hep B Non Reactive Normal (applies to [facility] ( St Surface Ab, non-numeric [facility] Qual results) Medical, ) ID Date Data Source [id number] 10/16/2019 12:00:00 AM EDT [facility] ([facility], ) Name Value Range Interpretation Description Data Sup porting Code Source(s) Document(s ) Complement C4, 33 mg/dL Normal (applies to [facility] (St Serum non-numeric [facility] results) [facility], ) ID Date Data Source [id number] 10/16/2019 12:00:00 AM EDT [facility] ([facility], ) Name Value Range Interpretation Description Data Sup porting Code Source(s) Document(s ) Hemoglobin A1c 6.7 % Above high normal [facility] (St in Blood [facility], ) ID Date Data Source [id number] 10/16/2019 12:00:00 AM EDT [facility] ([facility] Name Value Range Interpretation Code Description Data Kimberly rce(s) Supporting Document(s ) Normetane 256.1 Above high normal [facility] (St phrine, pg/mL [facility]) Metanephr 144.2 Above high normal [facility] (St ine, Pl pg/mL [facility]) ID Date Data Source [id number] 10/16/2019 12:00:00 AM EDT [facility] ([facility]) Name Value Range Interpretation Code Description Data Supporting Source(s) Document(s ) Albumin, 4217.2 Normal (applies to [facility] (St Urine ug/mL non-numeric [facility] results) [facility], ) Alb/Creat 2707 mg/g Above high normal [facility] (St Ratio creat [facility]) ID Date Data Source [id number] 10/16/2019 12:00:00 AM EDT [facility] ([facility] Name Value Range Interpretation Description Data Sup porting Code Source(s) Document(s ) Free [place] 593.88 Above high normal [facility] (St Lt mg/L [facility]) Free Lambda 130.75 Above high normal [facility] (St Lt mg/L [facility]) [place]/Lambd 4.54 Normal (applies to [facility] (S t a Ratio,U non-numeric [facility] results) [facility], ) ID Date Data Source [id number] 10/16/2019 12:00:00 AM EDT [facility] ([facility]) Name Value Range Interpretation Description Data Sup porting Code Source(s) Document(s ) Free [place] 57.8 mg/L Above high normal [facility] (St Lt [facility]ains,[facility]) Free Lambda 27.9 mg/L Above high normal [facility] (St Lt Chains,S [facility]) [place]/Lambd 2.07 Above high normal [facility] (St a Ratio,S [facility]) ID Date Data Source [id number] 10/16/2019 12:00:00 AM EDT [facility] ([facility], ) ID Date Data Source [id number] 10/16/2019 12:00:00 AM EDT [facility] ([facility], ) Name Value Range Interpretation Code Description Data Supporting Source(s) Document(s ) Creatinine 155.8 Normal (applies to [facility] (St , Urine mg/dL non-numeric [facility] results) [facility], ) Protein/Cr 3963 mg/g Above high normal [facility] (St eat Ratio creat [facility], ) ID Date Data Source [id number] 10/16/2019 12:00:00 AM EDT [facility] ([facility], ) ID Date Data Source [id number] 10/16/2019 12:00:00 AM EDT [facility] ([facility] [...] results) [facility], ) ID Date Data Source [id number] 10/16/2019 12:00:00 AM EDT [facility] ([facility] Name Value Range Interpretation Description Data Sup porting Code Source(s) Document(s ) Microalbumin 3.1 g/dL Normal (applies [facility] (St [Mass/time] in to non-numeric [facility] Urine collected results) Medical, for unspecified PC) duration Idnwg-9-Hfvgtryz 0.3 g/dL Normal (applies [facility] (St to non-numeric [facility] results) [facility], [facility]) Minpe-3-Gskxcpsi 0.8 g/dL Normal (applies [facility] (St to [...] results) Medical, ) ID Date Data Source [id number] 10/16/2019 12:00:00 AM EDT [facility] ([facility] results) [facility], ) ID Date Data Source [id number] 10/16/2019 12:00:00 AM EDT [facility] ([facility] [...] by Light microscopy ID Date Data Source [id number] 10/16/2019 12:00:00 AM EDT [facility] ([facility] [...] low normal MEDGE N (St Am mL/min/1 [facility] .73 [facility], ) eGFR If Africn Am 36 Below low normal MEDGE N (St mL/min/1 [facility] .73 [facility] [...] Serum or Plasma ID Date Data Source [id number] 10/16/2019 12:00:00 AM EDT [facility] ([facility], ) ID Date Data Source [id number] 10/16/2019 12:00:00 AM EDT [facility] ([facility] Name Value Range Interpretation Description Data Sup porting Code Source(s) Document(s ) Antimyeloperoxidase <9.0 Normal (applies MEDG EN (St (MPO) Abs to non-numeric [facility] results) Medical, ) Antiproteinase 3 <3.5 Normal (applies [facility] (St (VT-3) Abs to non-numeric [facility] results) [facility], ) Cytoplasmic (C-ANCA) <1:20 Normal (applies MED GEN (St to non-numeric [facility] results) Medical, ) Perinuclear (P-ANCA) <1:20 Normal (applies MED GEN (St to non-numeric [facility] results) Medical, ) Atypical pANCA <1:20 Normal (applies [facility] (S t to non-numeric [facility] results) [facility], ) ID Date Data Source [id number] 10/16/2019 12:00:00 AM EDT [facility] ([facility], ) Name Value Range Interpretation Description Data Sup porting Code Source(s) Document(s ) Complement C3, 117 mg/dL Normal (applies to [facility] (St Serum non-numeric [facility] results) [facility], ) ID Date Data Source [id number] 10/16/2019 12:00:00 AM EDT [facility] ([facility], ) Name Value Range Interpretation Description Data Sup porting Code Source(s) Document(s ) Hep B Non Reactive Normal (applies to [facility] ( St Surface Ab, non-numeric [facility] Qual results) [facility], ) ID Date Data Source [id number] 10/16/2019 12:00:00 AM EDT [facility] ([facility], ) Name Value Range Interpretation Description Data Sup porting Code Source(s) Document(s ) Complement C4, 33 mg/dL Normal (applies to [facility] (St Serum non-numeric [facility] results) [facility], ) ID Date Data Source [id number] 10/16/2019 12:00:00 AM EDT [facility] ([facility], ) Name Value Range Interpretation Description Data Sup porting Code Source(s) Document(s ) Hemoglobin A1c 6.7 % Above high normal [facility] (St in Blood [facility], ) ID Date Data Source [id number] 10/16/2019 12:00:00 AM EDT [facility] ([facility] Name Value Range Interpretation Code Description Data Kimberly rce(s) Supporting Document(s ) Metanephr 144.2 Above high normal [facility] (St ine, Pl pg/mL [facility]) Normetane 256.1 Above high normal [facility] (St phrine, pg/mL [facility]) ID Date Data Source [id number] 10/16/2019 12:00:00 AM EDT [facility] ([facility] Name Value Range Interpretation Code Description Data Supporting Source(s) Document(s ) Albumin, 4217.2 Normal (applies to [facility] (St Urine ug/mL non-numeric [facility] results) [facility], [facility]) Alb/Creat 2707 mg/g Above high normal [facility] (St Ratio creat [facility]) ID Date Data Source [id number] 10/16/2019 12:00:00 AM EDT [facility] ([facility]) Name Value Range Interpretation Description Data Sup porting Code Source(s) Document(s ) Free [place] 593.88 Above high normal [facility] (St Lt mg/L [facility]) Free Lambda 130.75 Above high normal [facility] (St Lt mg/L [facility]) [place]/Lambd 4.54 Normal (applies to [facility] (S t a Ratio,U non-numeric [facility] results) Medical, ) ID Date Data Source [id number] 10/16/2019 12:00:00 AM EDT [facility] ([facility]) Name Value Range Interpretation Description Data Sup porting Code Source(s) Document(s ) Free [place] 57.8 mg/L Above high normal [facility] (St Lt Chains,[facility]) Free Lambda 27.9 mg/L Above high normal [facility] (St Lt Chains,[facility]) [place]/Lambd 2.07 Above high normal [facility] (St a Ratio,S [facility]) ID Date Data Source [id number] 10/16/2019 12:00:00 AM EDT [facility] ([facility], ) ID Date Data Source [id number] 10/16/2019 12:00:00 AM EDT [facility] ([facility], ) ID Date Data Source [id number] 10/16/2019 12:00:00 AM EDT [facility] ([facility], ) Name Value Range Interpretation Description Data Sup porting Code Source(s) Document(s ) Immunofixation Normal (applies [facility] (S t Result, Serum to non-numeric [facility] results) [facility], ) Immunoglobulin G, 851 Normal (applies [facility] (St Qn, Serum mg/dL to non-numeric [facility] results) [facility], ) Immunoglobulin A, 124 Normal (applies [facility] (St Qn, Serum mg/dL to non-numeric [facility] results) [facility], ) Immunoglobulin M, 30 mg/dL Normal (applies [facility] (St Qn, Serum to non-numeric [facility] results) [facility], ) ID Date Data Source [id number] 10/16/2019 12:00:00 AM EDT [facility] ([facility] [...] Serum or Plasma ID Date Data Source [id number] 10/16/2019 12:00:00 AM EDT [facility] ([facility] [...] results) Medical, ) ID Date Data Source [id number] 10/16/2019 12:00:00 AM EDT [facility] ([facility] Name Value Range Interpretation Description Data Sup porting Code Source(s) Document(s ) Gigid-6-Nmwasxyd 0.3 g/dL Normal (applies [facility] (St to non-numeric [facility] results) Medical, ) Microalbumin 3.1 g/dL Normal (applies [facility] (St [Mass/time] in to non-numeric [facility] Urine collected results) Medical, for unspecified PC) duration Ilajo-4-Ctjzpxey 0.8 g/dL Normal (applies [facility] (St to [...] results) Medical, ) ID Date Data Source [id number] 10/16/2019 12:00:00 AM EDT [facility] ([facility] [...] results) Medical, ) ID Date Data Source [id number] 10/16/2019 12:00:00 AM EDT [facility] ([facility] [...] by Light microscopy ID Date Data Source [id number] 10/16/2019 12:00:00 AM EDT [facility] ([facility] [...] Serum or Plasma ID Date Data Source [id number] 10/16/2019 12:00:00 AM EDT [facility] ([facility] [...] (applies [facility] (St to non-numeric [facility] results) [facility]) MCHC 33.2 Normal (applies [facility] (St g/dL to non-numeric [facility] results) [facility]) RDW 13.5 % Normal (applies [facility] (St [...] by to non-numeric [facility] Manual count results) [facility]) Monocytes 4 % Normal (applies [facility] (St [...] (St (Absolute) x10E3/uL to non-numeric [facility] results) [facility]) Monocytes(Absolu 0.4 Normal (applies [facility] (St te) [...] [facility], ) ID Date Data Source [id number] 10/16/2019 12:00:00 AM EDT [facility] ([facility] [...] Antiproteinase 3 <3.5 Normal (applies [facility] (St (VT-3) Abs to non-numeric [facility] results) [facility], ) Perinuclear (P-ANCA) <1:20 Normal (applies MED GEN (St to non-numeric [facility] results) [facility], ) Atypical pANCA <1:20 Normal (applies [facility] (S t to non-numeric [facility] results) [facility], ) ID Date Data Source [id number] 10/16/2019 12:00:00 AM EDT [facility] ([facility], ) Name Value Range Interpretation Code Description Data Kimberly rce(s) Supporting Document(s ) ID Date Data Source [id number] 10/16/2019 12:00:00 AM EDT [facility] ([facility], ) Name Value Range Interpretation Code Description Data Kimberly rce(s) Supporting Document(s ) PDF . Normal (applies to [facility] (St non-numeric results) [facility], ) ID Date Data Source [id number] 10/16/2019 12:00:00 AM EDT [facility] ([facility], ) Name Value Range Interpretation Code Description Data Supporting Source(s) Document(s ) PTH, Intact 83 pg/mL Above high normal [facility] ([facility]) ID Date Data Source [id number] 10/16/2019 12:00:00 AM EDT [facility] ([facility] Name Value Range Interpretation Code Description Data Supporting Source(s) Document(s ) HBsAg Negative Normal (applies to [facility] (St Screen non-numeric [facility] results) [facility], PC) ID Date Data Source [id number] 10/16/2019 12:00:00 AM EDT [facility] ([facility] Name Value Range Interpretation Code Description Data Supporting Source(s) Document(s ) Ferritin, 133 ng/mL Normal (applies to [facility] (St Serum non-numeric [facility] results) [facility], PC) ID Date Data Source [id number] 10/16/2019 12:00:00 AM EDT [facility] ([facility] Name Value Range Interpretation Code Description Data Supporting Source(s) Document(s ) JAMAR Direct Negative Normal (applies to [facility] (St non-numeric [facility] results) Medical, ) ID Date Data Source [id number] 10/16/2019 12:00:00 AM EDT [facility] ([facility] Name Value Range Interpretation Description Data Sup porting Code Source(s) Document(s ) Deprecated 4.0 mg/dL Normal (applies to [facility] (St Phosphorus non-numeric [facility] [Mass/time] in results) Medical, ) 24 hour Urine ID Date Data Source [id number] 10/16/2019 12:00:00 AM EDT [facility] ([facility]) Name Value Range Interpretation Code Description Data Kimberly rce(s) Supporting Document(s ) Comment: Normal (applies to [facility] (St non-numeric results) [facility]) ID Date Data Source [id number] 10/16/2019 12:00:00 AM EDT [facility] ([facility] Name Value Range Interpretation Code Description Data Kimberly rce(s) Supporting Document(s ) HCV Ab <0.1 Normal (applies to [facility] (St non-numeric results) [facility]) ID Date Data Source [id number] 10/16/2019 12:00:00 AM EDT [facility] ([facility] Name Value Range Interpretation Code Description Data Kimberly rce(s) Supporting Document(s ) Anti-PLA2R <1.8 Normal (applies to [facility] (St non-numeric results) [facility], ) ID Date Data Source [id number] 10/16/2019 12:00:00 AM EDT [facility] ([facility]) Name Value Range Interpretation Code Description Data Kimberly rce(s) Supporting Document(s ) JERMAINE Normal (applies to [facility] (St Interpreta non-numeric results) [facility], tion:U PC) ID Date Data Source [id number] 10/16/2019 12:00:00 AM EDT [facility] ([facility]) Name Value Range Interpretation Code Description Data Kimberly rce(s) Supporting Document(s ) Anti-DNA 1 IU/mL Normal (applies to [facility] (St (DS) Ab Qn non-numeric [facility] results) Medical, ) ID Date Data Source [id number] 10/16/2019 12:00:00 AM EDT [facility] ([facility]) Name Value Range Interpretation Description Data Sup porting Code Source(s) Document(s ) HIV Screen Non Normal (applies [facility] (St 4th Reactive to non-numeric [facility] Generation results) Medical, ) wRfx ID Date Data Source [id number] 10/16/2019 12:00:00 AM EDT [facility] ([facility]) Name Value Range Interpretation Description Data Sup porting Code Source(s) Document(s ) Vitamin D, 8.0 ng/mL Below low normal [facility] (St 25-Hydroxy [facility], ) ID Date Data Source [id number] 10/16/2019 12:00:00 AM EDT [facility] ([facility]) Name Value Range Interpretation Code Description Data Kimberly rce(s) Supporting Document(s ) RA Latex <10.0 Normal (applies to [facility] (St Turbid. non-numeric results) [facility], ) ID Date Data Source [id number] 10/16/2019 12:00:00 AM EDT [facility] ([facility], ) Name Value Range Interpretation Description Data Sup porting Code Source(s) Document(s ) Complement C3, 117 mg/dL Normal (applies to [facility] (St Serum non-numeric [facility] results) Medical, ) ID Date Data Source [id number] 10/16/2019 12:00:00 AM EDT [facility] ([facility] Name Value Range Interpretation Description Data Sup porting Code Source(s) Document(s ) Hep B Non Reactive Normal (applies to MED[facility] ( St Surface Ab, non-numeric [facility] Qual results) [facility], ) ID Date Data Source [id number] 10/16/2019 12:00:00 AM EDT [facility] ([facility] Name Value Range Interpretation Description Data Sup porting Code Source(s) Document(s ) Complement C4, 33 mg/dL Normal (applies to [facility] (St Serum non-numeric [facility] results) [facility], ) ID Date Data Source [id number] 10/16/2019 12:00:00 AM EDT [facility] ([facility] Name Value Range Interpretation Description Data Sup porting Code Source(s) Document(s ) Hemoglobin A1c 6.7 % Above high normal [facility] (St in Blood [facility], ) ID Date Data Source [id number] 10/16/2019 12:00:00 AM EDT [facility] ([facility] Name Value Range Interpretation Code Description Data Kimberly rce(s) Supporting Document(s ) Normetane 256.1 Above high normal [facility] (St phrine, pg/mL [facility], ) Metanephr 144.2 Above high normal [facility] (St ine, Pl pg/mL [facility], ) ID Date Data Source [id number] 10/16/2019 12:00:00 AM EDT [facility] ([facility], ) ID Date Data Source [id number] 10/16/2019 12:00:00 AM EDT [facility] ([facility] Name Value Range Interpretation Description Data Sup porting Code Source(s) Document(s ) Free [place] 593.88 Above high normal [facility] (St Lt mg/L [facility]) Free Lambda 130.75 Above high normal [facility] (St Lt mg/L [facility]) [place]/Lambd 4.54 Normal (applies to [facility] (S t a Ratio,U non-numeric [facility] results) [facility], ) ID Date Data Source [id number] 10/16/2019 12:00:00 AM EDT [facility] ([facility] Name Value Range Interpretation Description Data Sup porting Code Source(s) Document(s ) Free [place] 57.8 mg/L Above high normal [facility] (St Lt Chains,S [facility]) Free Lambda 27.9 mg/L Above high normal [facility] (St Lt Chains,S [facility], ) [place]/Lambd 2.07 Above high normal [facility] (St a Ratio,S [facility], ) ID Date Data Source [id number] 10/16/2019 12:00:00 AM EDT [facility] ([facility], ) ID Date Data Source [id number] 10/16/2019 12:00:00 AM EDT [facility] ([facility], ) ID Date Data Source [id number] 10/16/2019 12:00:00 AM EDT [facility] ([facility], ) ID Date Data Source [id number] 10/16/2019 12:00:00 AM EDT MEDGEN ([facility] Serum or Plasma ID Date Data Source [id number] 10/16/2019 12:00:00 AM EDT MED[facility] ([facility] [...] (applies to MEDGEN (St obulin, U non-numeric [facility] results) [facility] [...] . Normal (applies to [facility] (St non-numeric [facility] results) Medical, PC) ID Date Data Source [id number] 10/16/2019 12:00:00 AM EDT [facility] ([facility] ) Name Value Range Interpretation Description Data Sup porting Code Source(s) Document(s ) Microalbumin 3.1 g/dL Normal (applies [facility] (St [Mass/time] in to non-numeric [facility] Urine collected results) Medical, for unspecified PC) duration Fusgr-0-Pnhqdiaa 0.3 g/dL Normal (applies [facility] (St to non-numeric [facility] results) Medical, PC) Glwit-4-Apgmuhax 0.8 g/dL Normal (applies MEDGEN (St to [...] results) Medical, PC) ID Date Data Source [id number] 10/16/2019 12:00:00 AM EDT [facility] ([facility] [...] results) [facility], PC) ID Date Data Source [id number] 10/16/2019 12:00:00 AM EDT [facility] ([facility] [...] by Light microscopy ID Date Data Source [id number] 10/16/2019 12:00:00 AM EDT MED[facility] ([facility] [...] low normal MEDGE N (St Am mL/min/1 [facility] [address] [place] [address], ) eGFR If Africn Am 36 Below low normal MEDGE N (St mL/min/1 [facility] .73 [facility] [...] Serum or Plasma ID Date Data Source [id number] 10/16/2019 12:00:00 AM EDT [facility] ([facility], ) ID Date Data Source [id number] 10/16/2019 12:00:00 AM EDT [facility] ([facility], ) Name Value Range Interpretation Code Description Data Kimberly rce(s) Supporting Document(s ) ID Date Data Source [id number] 10/16/2019 12:00:00 AM EDT [facility] ([facility], ) Name Value Range Interpretation Code Description Data Kimberly rce(s) Supporting Document(s ) PDF . Normal (applies to MEDGEN (St non-numeric results) [facility]) ID Date Data Source [id number] 10/16/2019 12:00:00 AM EDT [facility] Name Value Range Interpretation Code Description Data Supporting Source(s) Document(s ) PTH, Intact 83 pg/mL Above high normal [facility] ([facility]) ID Date Data Source [id number] 10/16/2019 12:00:00 AM EDT [facility] ([facility] Name Value Range Interpretation Code Description Data Supporting Source(s) Document(s ) HBsAg Negative Normal (applies to [facility] (St Screen non-numeric [facility] results) [facility], [facility]) ID Date Data Source [id number] 10/16/2019 12:00:00 AM EDT [facility] ([facility] Name Value Range Interpretation Code Description Data Supporting Source(s) Document(s ) Ferritin, 133 ng/mL Normal (applies to [facility] (St Serum non-numeric [facility]) [facility], [facility]) ID Date Data Source [id number] 10/16/2019 12:00:00 AM EDT [facility] ([facility] Name Value Range Interpretation Code Description Data Supporting Source(s) Document(s ) JAMAR Direct Negative Normal (applies to [facility] (St non-numeric [facility] results) [facility], [facility]) ID Date Data Source [id number] 10/16/2019 12:00:00 AM EDT [facility] ([facility] Name Value Range Interpretation Description Data Sup porting Code Source(s) Document(s ) Deprecated 4.0 mg/dL Normal (applies to [facility] (St Phosphorus non-numeric [facility] [Mass/time] in results) [facility], [facility]) 24 hour Urine ID Date Data Source [id number] 10/16/2019 12:00:00 AM EDT [facility] ([facility] Name Value Range Interpretation Code Description Data Kimberly rce(s) Supporting Document(s ) Comment: Normal (applies to [facility] (St non-numeric results) [facility]) ID Date Data Source [id number] 10/16/2019 12:00:00 AM EDT [facility] ([facility] Name Value Range Interpretation Code Description Data Kimberly rce(s) Supporting Document(s ) Creatine, 1 mg/24 hr Normal (applies to [facility] (St 24-hr Ur non-numeric [facility] results) Medical, ) HCV Ab <0.1 Normal (applies to [facility] (St non-numeric [facility] results) Medical, ) ID Date Data Source [id number] 10/16/2019 12:00:00 AM EDT [facility] ([facility], ) Name Value Range Interpretation Code Description Data Kimberly rce(s) Supporting Document(s ) Anti-PLA2R <1.8 Normal (applies to MED[facility] (St non-numeric results) [facility], ) ID Date Data Source [id number] 10/16/2019 12:00:00 AM EDT [facility] ([facility], ) Name Value Range Interpretation Code Description Data Kimberly rce(s) Supporting Document(s ) JERMAINE Normal (applies to MED[facility] (St Interpreta non-numeric results) [facility], tion:U ) ID Date Data Source [id number] 10/16/2019 12:00:00 AM EDT [facility] ([facility], ) Name Value Range Interpretation Code Description Data Kimberly rce(s) Supporting Document(s ) Anti-DNA 1 IU/mL Normal (applies to [facility] (St (DS) Ab Qn non-numeric [facility] results) Medical, ) ID Date Data Source [id number] 10/16/2019 12:00:00 AM EDT [facility] ([facility] [...] Medical, ) wRfx ID Date Data Source [id number] 10/16/2019 12:00:00 AM EDT [facility] ([facility], ) Name Value Range Interpretation Description Data Sup porting Code Source(s) Document(s ) Vitamin D, 8.0 ng/mL Below low normal MEDGEN (St 25-Hydroxy [facility], ) ID Date Data Source [id number] 10/16/2019 12:00:00 AM EDT [facility] ([facility], ) Name Value Range Interpretation Code Description Data Kimberly rce(s) Supporting Document(s ) RA Latex <10.0 Normal (applies to MEDGEN (St Turbid. non-numeric results) [facility], ) ID Date Data Source [id number] 10/16/2019 12:00:00 AM EDT [facility] ([facility], ) Name Value Range Interpretation Description Data Sup porting Code Source(s) Document(s ) Complement C3, 117 mg/dL Normal (applies to [facility] (St Serum non-numeric [facility] results) [facility], ) ID Date Data Source [id number] 10/16/2019 12:00:00 AM EDT [facility] ([facility], ) Name Value Range Interpretation Description Data Sup porting Code Source(s) Document(s ) Hep B Non Reactive Normal (applies to MEDGEN ( St Surface Ab, non-numeric [facility] Qual results) [facility], ) ID Date Data Source [id number] 10/16/2019 12:00:00 AM EDT [facility] ([facility], ) Name Value Range Interpretation Description Data Sup porting Code Source(s) Document(s ) Complement C4, 33 mg/dL Normal (applies to [facility] (St Serum non-numeric [facility] results) [facility], ) ID Date Data Source [id number] 10/16/2019 12:00:00 AM EDT [facility] ([facility], ) Name Value Range Interpretation Description Data Sup porting Code Source(s) Document(s ) Hemoglobin A1c 6.7 % Above high normal MEDGEN (St in Blood [facility], ) ID Date Data Source [id number] 10/16/2019 12:00:00 AM EDT [facility] ([facility], ) ID Date Data Source [id number] 10/16/2019 12:00:00 AM EDT [facility] ([facility], ) Name Value Range Interpretation Code Description Data Supporting Source(s) Document(s ) Alb/Creat 2707 mg/g Above high normal MEDGEN (St Ratio creat [facility], ) Albumin, 4217.2 Normal (applies to [facility] (St Urine ug/mL non-numeric [facility] results) [facility], ) ID Date Data Source [id number] 10/16/2019 12:00:00 AM EDT [facility] ([facility] [...] [facility], ) collected for unspecified duration Free [place] Lt 593.88 Above high normal MEDGEN ( St Chains,Ur mg/L [facility], ) Free Lambda Lt 130.75 Above high normal [facility] (St Chains,Ur mg/L [facility], ) [place]/Lambda 4.54 Normal (applies MED[facility] (St Ratio,U to non-numeric [facility] results) [facility], ) ID Date Data Source [id number] 10/16/2019 12:00:00 AM EDT [facility] ([facility], ) Name Value Range Interpretation Description Data Sup porting Code Source(s) Document(s ) Free Lambda 27.9 mg/L Above high normal MEDGEN (St Lt Chains,S [facility], ) Free [place] 57.8 mg/L Above high normal [facility] (St Lt Chains,S [facility], ) [place]/Lambd 2.07 Above high normal [facility] (St a Ratio,S [facility], ) ID Date Data Source [id number] 10/16/2019 12:00:00 AM EDT [facility] ([facility], ) ID Date Data Source [id number] 10/16/2019 12:00:00 AM EDT [facility] ([facility], ) Name Value Range Interpretation Code Description Data Supporting Source(s) Document(s ) Creatinine 155.8 Normal (applies to MEDGEN (St , Urine mg/dL non-numeric [facility] results) [facility], ) Protein/Cr 3963 mg/g Above high normal MEDGEN (St eat Ratio creat [facility], ) ID Date Data Source [id number] 10/16/2019 12:00:00 AM EDT [facility] ([facility], ) ID Date Data Source [id number] 10/16/2019 12:00:00 AM EDT [facility] ([facility] [...] Serum or Plasma ID Date Data Source [id number] 10/16/2019 12:00:00 AM EDT [facility] ([facility] [...] results) Medical, ) ID Date Data Source [id number] 10/16/2019 12:00:00 AM EDT [facility] ([facility], ) Name Value Range Interpretation Description Data Sup porting Code Source(s) Document(s ) Microalbumin 3.1 g/dL Normal (applies MEDGEN (St [Mass/time] in to non-numeric [facility] Urine collected results) Medical, for unspecified PC) duration Yqsrs-0-Twdqchzb 0.3 g/dL Normal (applies [facility] (St to non-numeric [facility] results) [facility], PC) Xzaqb-7-Jbueaabc 0.8 g/dL Normal (applies MEDGEN (St to [...] results) Medical, ) ID Date Data Source [id number] 10/16/2019 12:00:00 AM EDT [facility] ([facility] [...] by Light microscopy ID Date Data Source [id number] 10/16/2019 12:00:00 AM EDT [facility] ([facility] [...] low normal MEDGE N (St Am mL/min/1 [facility] .73 [facility] [...] Serum or Plasma ID Date Data Source [id number] 10/16/2019 12:00:00 AM EDT [facility] ([facility], ) ID Date Data Source [id number] 10/16/2019 12:00:00 AM EDT [facility] ([facility], ) Name Value Range Interpretation Description Data Sup porting Code Source(s) Document(s ) Antimyeloperoxidase <9.0 Normal (applies MEDG EN (St (MPO) Abs to non-numeric [facility] results) Medical, ) Antiproteinase 3 <3.5 Normal (applies MEDGEN (St (VT-3) Abs to non-numeric [facility] results) Medical, ) Cytoplasmic (C-ANCA) <1:20 Normal (applies MED GEN (St to non-numeric [facility] results) Medical, ) Perinuclear (P-ANCA) <1:20 Normal (applies MED GEN (St to non-numeric [facility] results) Medical, ) Atypical pANCA <1:20 Normal (applies [facility] (S t to non-numeric [facility] results) Medical, ) ID Date Data Source [id number] 10/16/2019 12:00:00 AM EDT [facility] ([facility] [...] by Light microscopy ID Date Data Source [id number] 10/16/2019 12:00:00 AM EDT [facility] ([facility], ) Name Value Range Interpretation Code Description Data Kimberly rce(s) Supporting Document(s ) PDF . Normal (applies to MEDGEN (St non-numeric results) [facility], ) ID Date Data Source [id number] 10/16/2019 12:00:00 AM EDT [facility] ([facility], ) Name Value Range Interpretation Code Description Data Supporting Source(s) Document(s ) PTH, Intact 83 pg/mL Above high normal [facility], ) ID Date Data Source [id number] 10/16/2019 12:00:00 AM EDT [facility] ([facility], ) Name Value Range Interpretation Code Description Data Supporting Source(s) Document(s ) HBsAg Negative Normal (applies to MEDGEN (St Screen non-numeric [facility] results) [facility], ) ID Date Data Source [id number] 10/16/2019 12:00:00 AM EDT [facility] ([facility], ) Name Value Range Interpretation Code Description Data Supporting Source(s) Document(s ) Ferritin, 133 ng/mL Normal (applies to [facility]GEN (St Serum non-numeric [facility] results) Medical, ) ID Date Data Source [id number] 10/16/2019 12:00:00 AM EDT [facility] ([facility], ) Name Value Range Interpretation Code Description Data Supporting Source(s) Document(s ) JAMAR Direct Negative Normal (applies to [facility] (St non-numeric [facility] results) Medical, ) ID Date Data Source [id number] 10/16/2019 12:00:00 AM EDT [facility] ([facility], ) Name Value Range Interpretation Description Data Sup porting Code Source(s) Document(s ) Deprecated 4.0 mg/dL Normal (applies to [facility] (St Phosphorus non-numeric [facility] [Mass/time] in results) Medical, ) 24 hour Urine ID Date Data Source [id number] 10/16/2019 12:00:00 AM EDT [facility] ([facility] [...] [Mass/volume] to non-numeric [facility] in Lower results) [facility]) respiratory specimen Ketones Negative Normal (applies MEDGEN (St [Presence] in to non-numeric [facility] Blood by results) [facility]) Tablet Glucose Abnormal (applies [facility]GEN (St [Mass/volume] to non-numeric [facility] in Urine results) [facility]) collected for unspecified duration Occult Blood Negative Normal (applies [facility]GEN (St to non-numeric [facility] results) [facility]) Urobilinogen,S 1.0 mg/dL Normal (applies MEDGEN (S t mere-Qn to non-numeric [facility] results) [facility]) Bilirubin Negative Normal (applies [facility] (St [Presence] in to non-numeric [facility] Peritoneal results) [facility]) fluid Nitrite, Urine Negative Normal (applies MEDGEN (S t to non-numeric [facility] results) [facility]) Microscopic See below: Normal (applies [facility] (St Examination to non-numeric [facility] results) [facility], ) Comment: Normal (applies [facility]GEN (St to non-numeric [facility] results) [facility]) ID Date Data Source [id number] 10/16/2019 12:00:00 AM EDT [facility] ([facility], ) Name Value Range Interpretation Code Description Data Kimberly rce(s) Supporting Document(s ) HCV Ab <0.1 Normal (applies to [facility] (St non-numeric results) [facility], ) ID Date Data Source [id number] 10/16/2019 12:00:00 AM EDT [facility] ([facility], ) Name Value Range Interpretation Code Description Data Kimberly rce(s) Supporting Document(s ) Anti-PLA2R <1.8 Normal (applies to [facility] (St non-numeric results) [facility], ) ID Date Data Source [id number] 10/16/2019 12:00:00 AM EDT [facility] ([facility], ) Name Value Range Interpretation Code Description Data Kimberly rce(s) Supporting Document(s ) JERMAINE Normal (applies to [facility] (St Interpreta non-numeric results) [facility], tion:U ) ID Date Data Source [id number] 10/16/2019 12:00:00 AM EDT [facility] ([facility], ) Name Value Range Interpretation Code Description Data Kimberly rce(s) Supporting Document(s ) Anti-DNA 1 IU/mL Normal (applies to [facility] (St (DS) Ab Qn non-numeric [facility] results) Medical, ) ID Date Data Source [id number] 10/16/2019 12:00:00 AM EDT [facility] ([facility], ) Name Value Range Interpretation Description Data Sup porting Code Source(s) Document(s ) HIV Screen Non Normal (applies [facility] (St 4th Reactive to non-numeric [facility] Generation results) Medical, ) wRfx ID Date Data Source [id number] 10/16/2019 12:00:00 AM EDT [facility] ([facility], ) Name Value Range Interpretation Description Data Sup porting Code Source(s) Document(s ) Vitamin D, 8.0 ng/mL Below low normal [facility] (St 25-Hydroxy [facility], ) ID Date Data Source [id number] 10/16/2019 12:00:00 AM EDT [facility] ([facility], ) Name Value Range Interpretation Code Description Data Kimberly rce(s) Supporting Document(s ) RA Latex <10.0 Normal (applies to [facility]GEN (St Turbid. non-numeric results) [facility], ) ID Date Data Source [id number] 10/16/2019 12:00:00 AM EDT [facility] ([facility], ) Name Value Range Interpretation Description Data Sup porting Code Source(s) Document(s ) Complement C3, 117 mg/dL Normal (applies to [facility] (St Serum non-numeric [facility] results) Medical, ) ID Date Data Source [id number] 10/16/2019 12:00:00 AM EDT [facility] ([facility], ) Name Value Range Interpretation Description Data Sup porting Code Source(s) Document(s ) Hep B Non Reactive Normal (applies to MEDGEN ( St Surface Ab, non-numeric [facility] Qual results) Medical, ) ID Date Data Source [id number] 10/16/2019 12:00:00 AM EDT [facility] ([facility], ) Name Value Range Interpretation Description Data Sup porting Code Source(s) Document(s ) Complement C4, 33 mg/dL Normal (applies to [facility]GEN (St Serum non-numeric [facility] results) [facility], ) ID Date Data Source [id number] 10/16/2019 12:00:00 AM EDT [facility] ([facility], ) Name Value Range Interpretation Description Data Sup porting Code Source(s) Document(s ) Hemoglobin A1c 6.7 % Above high normal MED[facility] (St in Blood [facility], ) ID Date Data Source [id number] 10/16/2019 12:00:00 AM EDT [facility] ([facility], ) Name Value Range Interpretation Code Description Data Kimberly rce(s) Supporting Document(s ) Normetane 256.1 Above high normal [facility] (St phrine, pg/mL [facility], ) Metanephr 144.2 Above high normal [facility] (St ine, Pl pg/mL [facility], ) ID Date Data Source [id number] 10/16/2019 12:00:00 AM EDT [facility] ([facility], ) Name Value Range Interpretation Code Description Data Supporting Source(s) Document(s ) Alb/Creat 2707 mg/g Above high normal [facility] (St Ratio creat [facility], ) Albumin, 4217.2 Normal (applies to MEDGEN (St Urine ug/mL non-numeric [facility] results) [facility], ) ID Date Data Source [id number] 10/16/2019 12:00:00 AM EDT [facility] ([facility], ) Name Value Range Interpretation Description Data Sup porting Code Source(s) Document(s ) Free [place] 593.88 Above high normal [facility] (St Lt mg/L [facility] Chains,Ur [facility], ) Free Lambda 130.75 Above high normal [facility] (St Lt mg/L [facility], ) [place]/Lambd 4.54 Normal (applies to MEDGEN (S t a Ratio,U non-numeric [facility] results) [facility], ) ID Date Data Source [id number] 10/16/2019 12:00:00 AM EDT [facility] ([facility], ) Name Value Range Interpretation Description Data Sup porting Code Source(s) Document(s ) VLDL 24 mg/dL Normal (applies MEDGEN (St Cholesterol Vasile to non-numeric [facility] results) [facility], ) LDL Cholesterol 112 mg/dL Above high normal [facility] (St Calc [facility], ) Free Lambda Lt 27.9 mg/L Above high normal [facility] (St Chains,S [facility], ) Free [place] Lt 57.8 mg/L Above high normal MED[facility] ( St Chains,S [facility], ) [place]/Lambda 2.07 Above high normal [facility] (S t Ratio,S [facility]) ID Date Data Source [id number] 10/16/2019 12:00:00 AM EDT [facility] ([facility], ) Name Value Range Interpretation [...] [facility], ) ID Date Data Source [id number] 10/16/2019 12:00:00 AM EDT [facility] ([facility], ) Name Value Range Interpretation Code Description Data Supporting Source(s) Document(s ) Creatinine 155.8 Normal (applies to MEDGEN (St , Urine mg/dL non-numeric [facility] results) [facility], ) Protein/Cr 3963 mg/g Above high normal [facility] (St eat Ratio creat [facility]) ID Date Data Source [id number] 10/16/2019 12:00:00 AM EDT [facility] ([facility], ) Name Value Range Interpretation [...] [facility], ) ID Date Data Source [id number] 10/16/2019 12:00:00 AM EDT [facility] ([facility] [...] Serum or Plasma ID Date Data Source [id number] 10/16/2019 12:00:00 AM EDT [facility] ([facility] [...] results) Medical, PC) ID Date Data Source [id number] 10/16/2019 12:00:00 AM EDT [facility] ([facility]) Name Value Range Interpretation Description Data Sup porting Code Source(s) Document(s ) Microalbumin 3.1 g/dL Normal (applies [facility] (St [Mass/time] in to non-numeric [facility] Urine collected results) Medical, for unspecified PC) duration Oabnk-4-Tmpnwszb 0.3 g/dL Normal (applies MEDGEN (St to non-numeric [facility] results) Medical, PC) Hgaof-6-Vqirjahd 0.8 g/dL Normal (applies MEDGEN (St to [...] results) Medical, PC) ID Date Data Source [id number] 10/16/2019 12:00:00 AM EDT [facility] ([facility] [...] results) Medical, ) ID Date Data Source [id number] 10/16/2019 12:00:00 AM EDT [facility] ([facility] [...] by Light microscopy ID Date Data Source [id number] 10/16/2019 12:00:00 AM EDT [facility] ([facility] [...] low normal MEDGE N (St Am mL/min/[address], ) eGFR If Africn Am 36 Below low normal MEDGE N (St mL/min/1 [facility] [...] Serum or Plasma ID Date Data Source [id number] 10/16/2019 12:00:00 AM EDT [facility] ([facility] [...] [facility], ) ID Date Data Source [id number] 10/16/2019 12:00:00 AM EDT [facility] ([facility], ) Name Value Range Interpretation Description Data Sup porting Code Source(s) Document(s ) Antimyeloperoxidase <9.0 Normal (applies MEDG EN (St (MPO) Abs to non-numeric [facility] results) Medical, ) Antiproteinase 3 <3.5 Normal (applies MEDGEN (St (VT-3) Abs to non-numeric [facility] results) Medical, ) Cytoplasmic (C-ANCA) <1:20 Normal (applies MED GEN (St to non-numeric [facility] results) Medical, ) Perinuclear (P-ANCA) <1:20 Normal (applies MED GEN (St to non-numeric [facility] results) Medical, ) Atypical pANCA <1:20 Normal (applies MEDGEN (S t to non-numeric [facility] results) Medical, ) ID Date Data Source [id number] 10/16/2019 12:00:00 AM EDT [facility] ([facility]) Name Value Range Interpretation Code Description Data Kimberly rce(s) Supporting Document(s ) ID Date Data Source [id number] 10/16/2019 12:00:00 AM EDT [facility] ([facility]) Name Value Range Interpretation Code Description Data Kimberly rce(s) Supporting Document(s ) PDF . Normal (applies to MEDGEN (St non-numeric results) [facility], [facility]) ID Date Data Source [id number] 10/16/2019 12:00:00 AM EDT [facility] ([facility]) Name Value Range Interpretation Code Description Data Supporting Source(s) Document(s ) PTH, Intact 83 pg/mL Above high normal [facility] ([facility], [facility]) ID Date Data Source [id number] 10/16/2019 12:00:00 AM EDT [facility] ([facility]) Name Value Range Interpretation Code Description Data Supporting Source(s) Document(s ) HBsAg Negative Normal (applies to MEDGEN (St Screen non-numeric [facility] results) Medical, PC) ID Date Data Source [id number] 10/16/2019 12:00:00 AM EDT [facility] ([facility]) Name Value Range Interpretation Code Description Data Supporting Source(s) Document(s ) Ferritin, 133 ng/mL Normal (applies to MEDGEN (St Serum non-numeric [facility] results) Medical, PC) ID Date Data Source [id number] 10/16/2019 12:00:00 AM EDT [facility] ([facility]) Name Value Range Interpretation Code Description Data Supporting Source(s) Document(s ) JAMAR Direct Negative Normal (applies to MEDGEN (St non-numeric [facility] results) Medical, PC) ID Date Data Source [id number] 10/16/2019 12:00:00 AM EDT [facility] ([facility]) Name Value Range Interpretation Description Data Sup porting Code Source(s) Document(s ) Deprecated 4.0 mg/dL Normal (applies to [facility] (St Phosphorus non-numeric [facility] [Mass/time] in results) Medical, PC) 24 hour Urine ID Date Data Source [id number] 10/16/2019 12:00:00 AM EDT [facility] ([facility]) Name Value Range Interpretation Code Description Data Kimberly rce(s) Supporting Document(s ) Comment: Normal (applies to [facility] (St non-numeric results) [facility]) ID Date Data Source [id number] 10/16/2019 12:00:00 AM EDT [facility] ([facility]) Name Value Range Interpretation Code Description Data Kimberly rce(s) Supporting Document(s ) HCV Ab <0.1 Normal (applies to [facility] (St non-numeric results) [facility]) ID Date Data Source [id number] 10/16/2019 12:00:00 AM EDT [facility] ([facility] Name Value Range Interpretation Code Description Data Kimberly rce(s) Supporting Document(s ) Anti-PLA2R <1.8 Normal (applies to [facility] (St non-numeric results) [facility]) ID Date Data Source [id number] 10/16/2019 12:00:00 AM EDT [facility] ([facility] Name Value Range Interpretation Code Description Data Kimberly rce(s) Supporting Document(s ) JERMAINE Normal (applies to [facility] (St Interpreta non-numeric results) [facility]:U [facility]) ID Date Data Source [id number] 10/16/2019 12:00:00 AM EDT [facility] ([facility] Name Value Range Interpretation Code Description Data Kimberly rce(s) Supporting Document(s ) Anti-DNA 1 IU/mL Normal (applies to [facility] (St (DS) Ab Qn non-numeric [facility] results) [facility], [facility]) ID Date Data Source [id number] 10/16/2019 12:00:00 AM EDT [facility] ([facility] Name Value Range Interpretation Description Data Sup porting Code Source(s) Document(s ) HIV Screen Non Normal (applies [facility] (St 4th Reactive to non-numeric [facility] Generation results) [facility], [facility]) wRfx ID Date Data Source [id number] 10/16/2019 12:00:00 AM EDT [facility] ([facility] Name Value Range Interpretation Code Description Data Kimberly rce(s) Supporting Document(s ) ID Date Data Source [id number] 10/16/2019 12:00:00 AM EDT [facility] ([facility] Name Value Range Interpretation Code Description Data Kimberly rce(s) Supporting Document(s ) PDF . Normal (applies to [facility] (St non-numeric results) [facility]) ID Date Data Source [id number] 10/16/2019 12:00:00 AM EDT [facility] ([facility] Name Value Range Interpretation Code Description Data Supporting Source(s) Document(s ) PTH, Intact 83 pg/mL Above high normal [facility] ([facility]) ID Date Data Source [id number] 10/16/2019 12:00:00 AM EDT [facility] Name Value Range Interpretation Code Description Data Supporting Source(s) Document(s ) HBsAg Negative Normal (applies to [facility] (St Screen non-numeric [facility] results) [facility], [facility]) ID Date Data Source [id number] 10/16/2019 12:00:00 AM EDT [facility] Name Value Range Interpretation Code Description Data Supporting Source(s) Document(s ) Ferritin, 133 ng/mL Normal (applies to [facility] (St Serum non-numeric [facility] results) [facility], [facility]) ID Date Data Source [id number] 10/16/2019 12:00:00 AM EDT [facility] Name Value Range Interpretation Code Description Data Supporting Source(s) Document(s ) JAMAR Direct Negative Normal (applies to [facility] (St non-numeric [facility] results) [facility], [facility]) ID Date Data Source [id number] 10/16/2019 12:00:00 AM EDT [facility] ([facility] Name Value Range Interpretation Description Data Sup porting Code Source(s) Document(s ) Deprecated 4.0 mg/dL Normal (applies to [facility] (St Phosphorus non-numeric [facility] [Mass/time] in results) [facility], PC) 24 hour Urine ID Date Data Source [id number] 10/16/2019 12:00:00 AM EDT [facility] Name Value Range Interpretation Code Description Data Kimberly rce(s) Supporting Document(s ) ID Date Data Source [id number] 10/16/2019 12:00:00 AM EDT [facility] Name Value Range Interpretation Code Description Data Kimberly rce(s) Supporting Document(s ) HCV Ab <0.1 Normal (applies to [facility] (St non-numeric results) [facility], ) ID Date Data Source [id number] 10/16/2019 12:00:00 AM EDT [facility] Name Value Range Interpretation Code Description Data Kimberly rce(s) Supporting Document(s ) Anti-PLA2R <1.8 Normal (applies to [facility] (St non-numeric results) [facility], ) ID Date Data Source [id number] 10/16/2019 12:00:00 AM EDT [facility] ([facility] Name Value Range Interpretation Code Description Data Kimberly rce(s) Supporting Document(s ) ID Date Data Source [id number] 10/16/2019 12:00:00 AM EDT [facility] Name Value Range Interpretation Code Description Data Kimberly rce(s) Supporting Document(s ) Anti-DNA 1 IU/mL Normal (applies to [facility] (St (DS) Ab Qn non-numeric [facility] results) Medical, ) ID Date Data Source [id number] 10/16/2019 12:00:00 AM EDT [facility] Name Value Range Interpretation Description Data Sup porting Code Source(s) Document(s ) HIV Screen Non Normal (applies [facility] (St 4th Reactive to non-numeric [facility] Generation results) Medical, ) wRfx ID Date Data Source [id number] 10/16/2019 12:00:00 AM EDT [facility] Name Value Range Interpretation Description Data Sup porting Code Source(s) Document(s ) Vitamin D, 8.0 ng/mL Below low normal [facility] (St 25-Hydroxy [facility], ) ID Date Data Source [id number] 10/16/2019 12:00:00 AM EDT [facility] Name Value Range Interpretation Code Description Data Kimberly rce(s) Supporting Document(s ) RA Latex <10.0 Normal (applies to [facility] (St Turbid. non-numeric results) [facility], ) ID Date Data Source [id number] 10/16/2019 12:00:00 AM EDT [facility], ) Name Value Range Interpretation Description Data Sup porting Code Source(s) Document(s ) Complement C3, 117 mg/dL Normal (applies to [facility] (St Serum non-numeric [facility] results) [facility], ) ID Date Data Source [id number] 10/16/2019 12:00:00 AM EDT [facility] ([facility], ) Name Value Range Interpretation Description Data Sup porting Code Source(s) Document(s ) Hep B Non Reactive Normal (applies to [facility] ( St Surface Ab, non-numeric [facility] Qual results) Medical, ) ID Date Data Source [id number] 10/16/2019 12:00:00 AM EDT [facility] ([facility], ) Name Value Range Interpretation Description Data Sup porting Code Source(s) Document(s ) Complement C4, 33 mg/dL Normal (applies to [facility] (St Serum non-numeric [facility] results) [facility], ) ID Date Data Source [id number] 10/16/2019 12:00:00 AM EDT [facility] ([facility], ) Name Value Range Interpretation Description Data Sup porting Code Source(s) Document(s ) Hemoglobin A1c 6.7 % Above high normal [facility] (St in Blood [facility], ) ID Date Data Source [id number] 10/16/2019 12:00:00 AM EDT [facility], ) Name Value Range Interpretation Code Description Data Kimberly rce(s) Supporting Document(s ) Normetane 256.1 Above high normal [facility] (St phrine, pg/mL [facility], ) Metanephr 144.2 Above high normal [facility] (St ine, Pl pg/mL [facility], ) ID Date Data Source [id number] 10/16/2019 12:00:00 AM EDT [facility] ([facility], ) ID Date Data Source [id number] 10/16/2019 12:00:00 AM EDT [facility] ([facility], ) Name Value Range Interpretation Description Data Sup porting Code Source(s) Document(s ) Free [place] 593.88 Above high normal [facility] (St Lt mg/L [facility], ) Free Lambda 130.75 Above high normal [facility] (St Lt mg/L [facility], ) [place]/Lambd 4.54 Normal (applies to [facility] (S t a Ratio,U non-numeric [facility] results) [facility], ) ID Date Data Source [id number] 10/16/2019 12:00:00 AM EDT [facility] ([facility], ) Name Value Range Interpretation Description Data Sup porting Code Source(s) Document(s ) Free [place] 57.8 mg/L Above high normal [facility] (St Lt Chains,S [facility], ) Free Lambda 27.9 mg/L Above high normal [facility] (St Lt Chains,S [facility], ) [place]/Lambd 2.07 Above high normal [facility] (St a Ratio,S [facility], ) ID Date Data Source [id number] 10/16/2019 12:00:00 AM EDT [facility] ([facility], ) ID Date Data Source [id number] 10/16/2019 12:00:00 AM EDT [facility] ([facility], ) Name Value Range Interpretation Code Description Data Supporting Source(s) Document(s ) Creatinine 155.8 Normal (applies to [facility] (St , Urine mg/dL non-numeric [facility] results) [facility], ) Protein/Cr 3963 mg/g Above high normal [facility] (St eat Ratio creat [facility], ) ID Date Data Source [id number] 10/16/2019 12:00:00 AM EDT [facility] ([facility], ) Name Value Range Interpretation Description [...] [facility], ) ID Date Data Source [id number] 10/16/2019 12:00:00 AM EDT [facility] ([facility], ) Name Value Range Interpretation Description [...] Serum or Plasma ID Date Data Source [id number] 10/16/2019 12:00:00 AM EDT [facility] ([facility], ) Name Value Range Interpretation Description [...] results) Medical, PC) ID Date Data Source [id number] 10/16/2019 12:00:00 AM EDT [facility], ) Name Value Range Interpretation Description Data Sup porting Code Source(s) Document(s ) Microalbumin 3.1 g/dL Normal (applies [facility] (St [Mass/time] in to non-numeric [facility] Urine collected results) Medical, for unspecified PC) duration Pgpfc-8-Eaegrwzg 0.3 g/dL Normal (applies [facility] (St to non-numeric [facility] results) Medical, PC) Beta globulin 0.8 g/dL Normal (applies [facility] (St [Mass/volume] in to non-numeric [facility] Urine by results) Medical, Electrophoresis PC) Funjz-4-Lkxjppnd 0.8 g/dL Normal (applies [facility] (St to [...] results) Medical, ) ID Date Data Source [id number] 10/16/2019 12:00:00 AM EDT [facility] ([facility] [...] results) Medical, ) ID Date Data Source [id number] 10/16/2019 12:00:00 AM EDT [facility] ([facility] [...] by Light microscopy ID Date Data Source [id number] 10/16/2019 12:00:00 AM EDT [facility] ([facility] [...] Serum or Plasma ID Date Data Source [id number] 10/16/2019 12:00:00 AM EDT [facility] ([facility], ) ID Date Data Source [id number] 10/16/2019 12:00:00 AM EDT [facility] ([facility], ) Name Value Range Interpretation Description Data Sup porting Code Source(s) Document(s ) Antimyeloperoxidase <9.0 Normal (applies [facility] EN (St (MPO) Abs to non-numeric [facility] results) Medical, PC) Antiproteinase 3 <3.5 Normal (applies [facility] (St (VT-3) Abs to non-numeric [facility] results) Medical, PC) Cytoplasmic (C-ANCA) <1:20 Normal (applies MED [facility] (St to non-numeric [facility] results) Medical, PC) Perinuclear (P-ANCA) <1:20 Normal (applies MED [facility] (St to non-numeric [facility] results) Medical, PC) Atypical pANCA <1:20 Normal (applies [facility] (S t to non-numeric [facility] results) Medical, ) ID Date Data Source [id number] 10/16/2019 12:00:00 AM EDT [facility] ([facility]) Name Value Range Interpretation Code Description Data Kimberly rce(s) Supporting Document(s ) ID Date Data Source [id number] 10/16/2019 12:00:00 AM EDT [facility] Name Value Range Interpretation Code Description Data Supporting Source(s) Document(s ) PDF Not applicable Normal (applies to [facility] (St non-numeric [facility] results) Medical, ) PDF . Normal (applies to [facility] (St non-numeric [facility] results) Medical, ) ID Date Data Source [id number] 10/16/2019 12:00:00 AM EDT [facility] ([facility]) Name Value Range Interpretation Code Description Data Kimberly rce(s) Supporting Document(s ) PDF . Normal (applies to [facility] (St non-numeric results) [facility], ) ID Date Data Source [id number] 10/16/2019 12:00:00 AM EDT [facility] ([facility]) Name Value Range Interpretation Code Description Data Supporting Source(s) Document(s ) PTH, Intact 83 pg/mL Above high normal [facility] ([facility]) ID Date Data Source [id number] 10/16/2019 12:00:00 AM EDT [facility] ([facility]) Name Value Range Interpretation Code Description Data Supporting Source(s) Document(s ) HBsAg Negative Normal (applies to [facility] (St Screen non-numeric [facility] results) Medical, ) ID Date Data Source [id number] 10/16/2019 12:00:00 AM EDT [facility] ([facility], ) Name Value Range Interpretation Code Description Data Supporting Source(s) Document(s ) Ferritin, 133 ng/mL Normal (applies to [facility] (St Serum non-numeric [facility] results) Medical, ) ID Date Data Source [id number] 10/16/2019 12:00:00 AM EDT [facility] ([facility], ) Name Value Range Interpretation Code Description Data Supporting Source(s) Document(s ) JAMAR Direct Negative Normal (applies to [facility] (St non-numeric [facility] results) Medical, ) ID Date Data Source [id number] 10/16/2019 12:00:00 AM EDT [facility] ([facility] [...] 24 hour Urine ID Date Data Source [id number] 10/16/2019 12:00:00 AM EDT [facility], ) Name Value Range Interpretation Code Description Data Kimberly rce(s) Supporting Document(s ) Comment: Normal (applies to [facility] (St non-numeric results) [facility], ) ID Date Data Source [id number] 10/16/2019 12:00:00 AM EDT [facility], ) ID Date Data Source [id number] 10/16/2019 12:00:00 AM EDT [facility] ([facility], ) Name Value Range Interpretation Code Description Data Kimberly rce(s) Supporting Document(s ) Anti-PLA2R <1.8 Normal (applies to [facility] (St non-numeric results) [facility], ) ID Date Data Source [id number] 10/16/2019 12:00:00 AM EDT [facility] ([facility], ) Name Value Range Interpretation Code Description Data Supporting Source(s) Document(s ) Albumin, 2994.7 Normal (applies to [facility] (St Urine ug/mL non-numeric [facility] results) Medical, ) Alb/Creat 2053 mg/g Above high normal [facility] (St Ratio creat [facility], ) JERMAINE Normal (applies to [facility] (St Interpreta non-numeric [facility] tion:U results) [facility], ) ID Date Data Source [id number] 10/16/2019 12:00:00 AM EDT [facility] ([facility], ) Name Value Range Interpretation Code Description Data Kimberly rce(s) Supporting Document(s ) Anti-DNA 1 IU/mL Normal (applies to [facility] (St (DS) Ab Qn non-numeric [facility] results) [facility], ) ID Date Data Source [id number] 10/16/2019 12:00:00 AM EDT [facility] ([facility], ) Name Value Range Interpretation Description Data Sup porting Code Source(s) Document(s ) Free Lambda 27.9 mg/L Above high normal [facility] (St Lt Chains,S [facility], ) [place]/Lambda 2.07 Above high normal [facility] (S t Ratio,S [facility], ) HIV Screen Non Normal (applies [facility] (St 4th Reactive to non-numeric [facility] Generation results) Medical, ) wRfx ID Date Data Source [id number] 10/16/2019 12:00:00 AM EDT [facility] ([facility], ) Name Value Range Interpretation Description Data Sup porting Code Source(s) Document(s ) Vitamin D, 8.0 ng/mL Below low normal [facility] (St 25-Hydroxy [facility], ) ID Date Data Source [id number] 10/16/2019 12:00:00 AM EDT [facility] ([facility], ) Name Value Range Interpretation Description [...] results) Medical, ) ID Date Data Source [id number] 10/16/2019 12:00:00 AM EDT [facility] ([facility], ) Name Value Range Interpretation Description Data Sup porting Code Source(s) Document(s ) Complement C3, 117 mg/dL Normal (applies to [facility] (St Serum non-numeric [facility] results) Medical, ) ID Date Data Source [id number] 10/16/2019 12:00:00 AM EDT [facility] ([facility], ) Name Value Range Interpretation Description Data Sup porting Code Source(s) Document(s ) Hep B Non Reactive Normal (applies to [facility] ( St Surface Ab, non-numeric [facility] Qual results) Medical, ) ID Date Data Source [id number] 10/16/2019 12:00:00 AM EDT [facility] ([facility], ) Name Value Range Interpretation Description Data Sup porting Code Source(s) Document(s ) Complement C4, 33 mg/dL Normal (applies to [facility] (St Serum non-numeric [facility] results) Medical, ) ID Date Data Source [id number] 10/16/2019 12:00:00 AM EDT [facility] ([facility] [...] Above high normal [facility] (St in Blood [facility], ) ID Date Data Source [id number] 10/16/2019 12:00:00 AM EDT [facility] ([facility], ) ID Date Data Source [id number] 10/16/2019 12:00:00 AM EDT [facility] ([facility] [...] Above high normal [facility] (St Ratio creat [facility], ) ID Date Data Source [id number] 10/16/2019 12:00:00 AM EDT [facility] ([facility], ) Name Value Range Interpretation Description Data Sup porting Code Source(s) Document(s ) Free [place] 593.88 Above high normal [facility] (St Lt mg/L [facility], ) Free Lambda 130.75 Above high normal [facility] (St Lt mg/L [facility], ) [place]/Lambd 4.54 Normal (applies to [facility] (S t a Ratio,U non-numeric [facility] results) [facility], ) ID Date Data Source [id number] 10/16/2019 12:00:00 AM EDT [facility] ([facility], ) Name Value Range Interpretation Description Data Sup porting Code Source(s) Document(s ) Free [place] 57.8 mg/L Above high normal [facility] (St Lt Chains,S [facility], ) Free Lambda 27.9 mg/L Above high normal [facility] (St Lt Chains,S [facility], ) [place]/Lambd 2.07 Above high normal [facility] (St a Ratio,S [facility], ) ID Date Data Source [id number] 10/16/2019 12:00:00 AM EDT [facility] ([facility], ) ID Date Data Source [id number] 10/16/2019 12:00:00 AM EDT [facility] ([facility], ) Name Value Range Interpretation Code Description Data Supporting Source(s) Document(s ) Creatinine 155.8 Normal (applies to [facility] (St , Urine mg/dL non-numeric [facility] results) Medical, ) Protein/Cr 3963 mg/g Above high normal [facility] (St eat Ratio creat [facility], ) ID Date Data Source [id number] 10/16/2019 12:00:00 AM EDT [facility] ([facility], ) ID Date Data Source [id number] 10/16/2019 12:00:00 AM EDT [facility] ([facility] [...] Serum or Plasma ID Date Data Source [id number] 10/16/2019 12:00:00 AM EDT [facility] ([facility], ) ID Date Data Source [id number] 10/16/2019 12:00:00 AM EDT [facility] ([facility], ) Name Value Range Interpretation Description Data Sup porting Code Source(s) Document(s ) Microalbumin 3.1 g/dL Normal (applies [facility] (St [Mass/time] in to non-numeric [facility] Urine collected results) Medical, for unspecified PC) duration Uzlcl-9-Yycqhbjk 0.3 g/dL Normal (applies [facility] (St to non-numeric [facility] results) Medical, PC) Wnexw-4-Fyaywhfl 0.8 g/dL Normal (applies [facility] (St to [...] results) Medical, PC) ID Date Data Source [id number] 10/16/2019 12:00:00 AM EDT [facility] ([facility] [...] results) Medical, PC) ID Date Data Source [id number] 10/16/2019 12:00:00 AM EDT [facility] ([facility] [...] by Light microscopy ID Date Data Source [id number] 10/16/2019 12:00:00 AM EDT [facility] ([facility] [...] low normal MEDGE N (St Am mL/min/1 [facility] [address] [place] [address], ) eGFR If Africn Am 36 Below low normal MEDGE N (St mL/min/1 [facility] .[address] [facility] [...] Serum or Plasma ID Date Data Source [id number] 10/16/2019 12:00:00 AM EDT [facility] ([facility] [...] [facility], ) ID Date Data Source [id number] 10/16/2019 12:00:00 AM EDT [facility] ([facility], ) Name Value Range Interpretation Description Data Sup porting Code Source(s) Document(s ) Antimyeloperoxidase <9.0 Normal (applies MEDG EN (St (MPO) Abs to non-numeric [facility] results) Medical, ) Antiproteinase 3 <3.5 Normal (applies [facility] (St (VT-3) Abs to non-numeric [facility] results) Medical, ) [...] [facility], ) ID Date Data Source [id number] 10/16/2019 12:00:00 AM EDT [facility] ([facility], ) Name Value Range Interpretation Code Description Data Kimberly rce(s) Supporting Document(s ) PDF . Normal (applies to [facility] (St non-numeric results) [facility], ) ID Date Data Source [id number] 10/16/2019 12:00:00 AM EDT [facility] ([facility], ) Name Value Range Interpretation Code Description Data Supporting Source(s) Document(s ) PTH, Intact 83 pg/mL Above high normal [facility] ([place], ) ID Date Data Source [id number] 10/16/2019 12:00:00 AM EDT [facility] ([facility], ) Name Value Range Interpretation Code Description Data Supporting Source(s) Document(s ) HBsAg Negative Normal (applies to [facility] (St Screen non-numeric [facility] results) [facility], ) ID Date Data Source [id number] 10/16/2019 12:00:00 AM EDT [facility] ([facility], ) Name Value Range Interpretation Code Description Data Supporting Source(s) Document(s ) Ferritin, 133 ng/mL Normal (applies to [facility] (St Serum non-numeric [facility] results) [facility], ) ID Date Data Source [id number] 10/16/2019 12:00:00 AM EDT [facility] ([facility], ) Name Value Range Interpretation Code Description Data Supporting Source(s) Document(s ) JAMAR Direct Negative Normal (applies to [facility] (St non-numeric [facility] results) [facility], ) ID Date Data Source [id number] 10/16/2019 12:00:00 AM EDT [facility] ([facility], ) Name Value Range Interpretation Description Data Sup porting Code Source(s) Document(s ) Deprecated 4.0 mg/dL Normal (applies to [facility] (St Phosphorus non-numeric [facility] [Mass/time] in results) Medical, ) 24 hour Urine ID Date Data Source [id number] 10/16/2019 12:00:00 AM EDT [facility] ([facility], ) Name Value Range Interpretation Code Description Data Kimberly rce(s) Supporting Document(s ) ID Date Data Source [id number] 10/16/2019 12:00:00 AM EDT [facility] ([facility], ) Name Value Range Interpretation Code Description Data Kimberly rce(s) Supporting Document(s ) HCV Ab <0.1 Normal (applies to [facility] (St non-numeric results) [facility], ) ID Date Data Source [id number] 10/16/2019 12:00:00 AM EDT [facility] ([facility], ) Name Value Range Interpretation Code Description Data Kimberly rce(s) Supporting Document(s ) Anti-PLA2R <1.8 Normal (applies to [facility] (St non-numeric results) [facility], ) ID Date Data Source [id number] 10/16/2019 12:00:00 AM EDT [facility] ([facility], ) Name Value Range Interpretation Code Description Data Kimberly rce(s) Supporting Document(s ) ID Date Data Source [id number] 10/16/2019 12:00:00 AM EDT [facility] ([facility], ) Name Value Range Interpretation Code Description Data Kimberly rce(s) Supporting Document(s ) Anti-DNA 1 IU/mL Normal (applies to [facility] (St (DS) Ab Qn non-numeric [facility] results) Medical, ) ID Date Data Source [id number] 10/16/2019 12:00:00 AM EDT [facility] ([facility], ) Name Value Range Interpretation Description Data Sup porting Code Source(s) Document(s ) HIV Screen Non Normal (applies [facility] (St 4th Reactive to non-numeric [facility] Generation results) Medical, ) wRfx ID Date Data Source [id number] 10/16/2019 12:00:00 AM EDT [facility] ([facility], ) Name Value Range Interpretation Description Data Sup porting Code Source(s) Document(s ) Vitamin D, 8.0 ng/mL Below low normal [facility] (St 25-Hydroxy [facility], ) ID Date Data Source [id number] 10/16/2019 12:00:00 AM EDT [facility] ([facility], ) Name Value Range Interpretation Code Description Data Kimberly rce(s) Supporting Document(s ) RA Latex <10.0 Normal (applies to [facility] (St Turbid. non-numeric results) [facility], ) ID Date Data Source [id number] 10/16/2019 12:00:00 AM EDT [facility] ([facility], ) Name Value Range Interpretation Description Data Sup porting Code Source(s) Document(s ) Complement C3, 117 mg/dL Normal (applies to [facility] (St Serum non-numeric [facility] results) [facility], ) ID Date Data Source [id number] 10/16/2019 12:00:00 AM EDT [facility] ([facility], ) Name Value Range Interpretation Description Data Sup porting Code Source(s) Document(s ) Hep B Non Reactive Normal (applies to [facility] ( St Surface Ab, non-numeric [facility] Qual results) [facility], ) ID Date Data Source [id number] 10/16/2019 12:00:00 AM EDT [facility] ([facility], ) Name Value Range Interpretation Description Data Sup porting Code Source(s) Document(s ) Complement C4, 33 mg/dL Normal (applies to [facility] (St Serum non-numeric [facility] results) [facility], ) ID Date Data Source [id number] 10/16/2019 12:00:00 AM EDT [facility] ([facility], ) Name Value Range Interpretation Description Data Sup porting Code Source(s) Document(s ) Hemoglobin A1c 6.7 % Above high normal [facility] (St in Blood [facility], ) ID Date Data Source [id number] 10/16/2019 12:00:00 AM EDT [facility] ([facility], ) Name Value Range Interpretation Code Description Data Kimberly rce(s) Supporting Document(s ) Normetane 256.1 Above high normal [facility] (St phrine, pg/mL [facility], ) Metanephr 144.2 Above high normal [facility] (St ine, Pl pg/mL [facility], ) ID Date Data Source [id number] 10/16/2019 12:00:00 AM EDT [facility] ([facility] Name Value Range Interpretation Code Description Data Supporting Source(s) Document(s ) Albumin, 4217.2 Normal (applies to [facility] (St Urine ug/mL non-numeric [facility] results) Medical, ) Alb/Creat 2707 mg/g Above high normal [facility] (St Ratio creat [facility], ) ID Date Data Source [id number] 10/16/2019 12:00:00 AM EDT [facility] ([facility], ) Name Value Range Interpretation Description Data Sup porting Code Source(s) Document(s ) Free Lambda 130.75 Above high normal [facility] (St Lt mg/L [facility]) Free [place] 593.88 Above high normal [facility] (St Lt mg/L [facility], ) [place]/Lambd 4.54 Normal (applies to [facility] (S t a Ratio,U non-numeric [facility] results) [facility], ) ID Date Data Source [id number] 10/16/2019 12:00:00 AM EDT [facility] ([facility], ) Name Value Range Interpretation Description Data Sup porting Code Source(s) Document(s ) Free [place] 57.8 mg/L Above high normal [facility] (St Lt Chains,S [facility]) [place]/Lambd 2.07 Above high normal [facility] (St a Ratio,S [facility], [facility]) Free Lambda 27.9 mg/L Above high normal [facility] (St Lt Chains,S [facility], ) ID Date Data Source [id number] 10/16/2019 12:00:00 AM EDT [facility] ([facility] [...] ] in Plasma ID Date Data Source [id number] 10/16/2019 12:00:00 AM EDT [facility] ([facility], ) Name Value Range Interpretation Code Description Data Supporting Source(s) Document(s ) Creatinine 155.8 Normal (applies to [facility] (St , Urine mg/dL non-numeric [facility] results) [facility], ) Protein/Cr 3963 mg/g Above high normal [facility] (St eat Ratio creat [facility], ) ID Date Data Source [id number] 10/16/2019 12:00:00 AM EDT [facility] ([facility], ) Name Value Range Interpretation Description [...] [facility], ) ID Date Data Source [id number] 10/16/2019 12:00:00 AM EDT [facility] ([facility] [...] Serum or Plasma ID Date Data Source [id number] 10/16/2019 12:00:00 AM EDT [facility] ([facility], ) Name Value Range Interpretation Description [...] results) Medical, PC) ID Date Data Source [id number] 10/16/2019 12:00:00 AM EDT [facility] ([facility]) Name Value Range Interpretation Description Data Sup porting Code Source(s) Document(s ) Microalbumin 3.1 g/dL Normal (applies [facility] (St [Mass/time] in to non-numeric [facility] Urine collected results) Medical, for unspecified PC) duration Maufh-4-Jsspynax 0.8 g/dL Normal (applies [facility] (St to non-numeric [facility] results) Medical, PC) Glnpt-4-Snqtmurq 0.3 g/dL Normal (applies [facility] (St to [...] results) Medical, PC) ID Date Data Source [id number] 10/16/2019 12:00:00 AM EDT [facility] ([facility] [...] 24 hour Urine ID Date Data Source [id number] 10/16/2019 12:00:00 AM EDT [facility] ([facility], ) Name Value Range Interpretation Code Description Data Kimberly rce(s) Supporting Document(s ) ID Date Data Source [id number]/16/2019 12:00:00 AM EDT [facility] ([facility], ) Name Value Range Interpretation Code Description Data Kimberly rce(s) Supporting Document(s ) HCV Ab <0.1 Normal (applies to [facility] (St non-numeric results) [facility], ) ID Date Data Source [id number] 10/16/2019 12:00:00 AM EDT [facility] ([facility], ) Name Value Range Interpretation Code Description Data Kimberly rce(s) Supporting Document(s ) Anti-PLA2R <1.8 Normal (applies to [facility] (St non-numeric results) [facility], ) ID Date Data Source [id number]/16/2019 12:00:00 AM EDT [facility] ([facility], ) Name Value Range Interpretation Code Description Data Kimberly rce(s) Supporting Document(s ) ID Date Data Source [id number]/16/2019 12:00:00 AM EDT [facility] ([facility], ) Name Value Range Interpretation Code Description Data Kimberly rce(s) Supporting Document(s ) Anti-DNA 1 IU/mL Normal (applies to [facility] (St (DS) Ab Qn non-numeric [facility] results) Medical, ) ID Date Data Source [id number]/16/2019 12:00:00 AM EDT [facility] ([facility] [...] ng/mL Below low normal [facility] (St 25-Hydroxy [facility], ) ID Date Data Source [id number] 10/16/2019 12:00:00 AM EDT [facility] ([facility], ) Name Value Range Interpretation Code Description Data Kimberly rce(s) Supporting Document(s ) RA Latex <10.0 Normal (applies to [facility] (St Turbid. non-numeric results) [facility], ) ID Date Data Source [id number] 10/16/2019 12:00:00 AM EDT [facility] ([facility], ) Name Value Range Interpretation Description Data Sup porting Code Source(s) Document(s ) Complement C3, 117 mg/dL Normal (applies to [facility] (St Serum non-numeric [facility]ony's results) [facility], ) ID Date Data Source [id number] 10/16/2019 12:00:00 AM EDT [facility] ([facility], ) Name Value Range Interpretation Description Data Sup porting Code Source(s) Document(s ) Hep B Non Reactive Normal (applies to [facility] ( St Surface Ab, non-numeric [facility] Qual results) [facility], ) ID Date Data Source [id number] 10/16/2019 12:00:00 AM EDT [facility] ([facility], ) Name Value Range Interpretation Description Data Sup porting Code Source(s) Document(s ) Complement C4, 33 mg/dL Normal (applies to [facility] (St Serum non-numeric [facility]ony's results) [facility], ) ID Date Data Source [id number] 10/16/2019 12:00:00 AM EDT [facility] ([facility], ) Name Value Range Interpretation Description Data Sup porting Code Source(s) Document(s ) Hemoglobin A1c 6.7 % Above high normal [facility] (St in Blood [facility], ) ID Date Data Source [id number] 10/16/2019 12:00:00 AM EDT [facility] ([facility], ) Name Value Range Interpretation Code Description Data Kimberly rce(s) Supporting Document(s ) Normetane 256.1 Above high normal [facility] (St phrine, pg/mL [facility]) Metanephr 144.2 Above high normal [facility] (St ine, Pl pg/mL [facility]) ID Date Data Source [id number] 10/16/2019 12:00:00 AM EDT [facility] ([facility]) Name Value Range Interpretation Code Description Data Supporting Source(s) Document(s ) Albumin, 4217.2 Normal (applies to [facility] (St Urine ug/mL non-numeric [facility] results) Medical, ) Alb/Creat 2707 mg/g Above high normal [facility] (St Ratio creat [facility], ) ID Date Data Source [id number] 10/16/2019 12:00:00 AM EDT [facility] ([facility]) Name Value Range Interpretation Description Data Sup porting Code Source(s) Document(s ) Free [place] 593.88 Above high normal [facility] (St Lt mg/L [facility]) [place]/Lambd 4.54 Normal (applies to [facility] (S t a Ratio,U non-numeric [facility] results) Medical, ) Free Lambda 130.75 Above high normal [facility] (St Lt mg/L [facility], ) ID Date Data Source [id number] 10/16/2019 12:00:00 AM EDT [facility] ([facility]) Name Value Range Interpretation Description Data Sup porting Code Source(s) Document(s ) Free [place] 57.8 mg/L Above high normal [facility] (St Lt Chains,S [facility]) Free Lambda 27.9 mg/L Above high normal [facility] (St Lt Chains,S [facility]) [place]/Lambd 2.07 Above high normal [facility] (St a Ratio,S [facility]) ID Date Data Source [id number] 10/16/2019 12:00:00 AM EDT [facility] ([facility], ) ID Date Data Source [id number] 10/16/2019 12:00:00 AM EDT [facility] ([facility], ) Name Value Range Interpretation Code Description Data Supporting Source(s) Document(s ) Creatinine 155.8 Normal (applies to [facility] (St , Urine mg/dL non-numeric [facility]ony's results) [facility], ) Protein/Cr 3963 mg/g Above high normal [facility] (St eat Ratio creat [facility], ) ID Date Data Source [id number] 10/16/2019 12:00:00 AM EDT [facility] ([facility], ) ID Date Data Source [id number] 10/16/2019 12:00:00 AM EDT [facility] ([facility] [...] Serum or Plasma ID Date Data Source [id number] 10/16/2019 12:00:00 AM EDT [facility] ([facility] [...] results) Medical, ) ID Date Data Source [id number] 10/16/2019 12:00:00 AM EDT [facility], ) Name Value Range Interpretation Description Data Sup porting Code Source(s) Document(s ) Microalbumin 3.1 g/dL Normal (applies [facility] (St [Mass/time] in to non-numeric [facility] Urine collected results) Medical, for unspecified PC) duration Eidbe-4-Awttusgt 0.3 g/dL Normal (applies [facility] (St to non-numeric [facility]ony's results) Medical, ) Abwbl-8-Kpuepmra 0.8 g/dL Normal (applies [facility] (St to [...] results) Medical, PC) ID Date Data Source [id number] 10/16/2019 12:00:00 AM EDT [facility] ([facility] [...] results) Medical, PC) ID Date Data Source [id number] 10/16/2019 12:00:00 AM EDT [facility] ([facility] [...] by Light microscopy ID Date Data Source [id number] 10/16/2019 12:00:00 AM EDT [facility] ([facility] [...] Serum or Plasma ID Date Data Source [id number] 10/16/2019 12:00:00 AM EDT [facility] ([facility] [...] results) Medical, ) ID Date Data Source [id number] 10/16/2019 12:00:00 AM EDT [facility] ([facility], ) Name Value Range Interpretation Description Data Sup porting Code Source(s) Document(s ) Antimyeloperoxidase <9.0 Normal (applies [facility] (St (MPO) Abs to non-numeric [facility] results) Medical, ) Antiproteinase 3 <3.5 Normal (applies [facility] (St (VT-3) Abs to non-numeric [facility] results) Medical, ) Cytoplasmic (C-ANCA) <1:20 Normal (applies [facility] (St to non-numeric [facility] results) Medical, ) Perinuclear (P-ANCA) <1:20 Normal (applies [facility] (St to non-numeric [facility] results) Medical, ) Atypical pANCA <1:20 Normal (applies [facility] (S t to non-numeric [facility] results) Medical, ) ID Date Data Source [id number] 10/16/2019 12:00:00 AM EDT [facility] ([facility], ) Name Value Range Interpretation Code Description Data Kimberly rce(s) Supporting Document(s ) ID Date Data Source [id number] 10/16/2019 12:00:00 AM EDT [facility] ([facility], ) Name Value Range Interpretation Code Description Data Kimberly rce(s) Supporting Document(s ) PDF . Normal (applies to [facility] (St non-numeric results) [facility], ) ID Date Data Source [id number] 10/16/2019 12:00:00 AM EDT [facility] ([facility], ) Name Value Range Interpretation Code Description Data Supporting Source(s) Document(s ) PTH, Intact 83 pg/mL Above high normal [facility] ([facility], ) ID Date Data Source [id number] 10/16/2019 12:00:00 AM EDT [facility] ([facility], ) Name Value Range Interpretation Code Description Data Supporting Source(s) Document(s ) HBsAg Negative Normal (applies to [facility] (St Screen non-numeric [facility] results) Medical, ) ID Date Data Source [id number] 10/16/2019 12:00:00 AM EDT [facility] ([facility]) Name Value Range Interpretation Code Description Data Supporting Source(s) Document(s ) Ferritin, 133 ng/mL Normal (applies to [facility] (St Serum non-numeric [facility] results) Medical, PC) ID Date Data Source [id number] 10/16/2019 12:00:00 AM EDT [facility] ([facility]) Name Value Range Interpretation Code Description Data Supporting Source(s) Document(s ) JAMAR Direct Negative Normal (applies to [facility] (St non-numeric [facility]'s results) Medical, ) ID Date Data Source [id number] 10/16/2019 12:00:00 AM EDT [facility] ([facility]) Name Value Range Interpretation Description Data Sup porting Code Source(s) Document(s ) Deprecated 4.0 mg/dL Normal (applies to [facility] (St Phosphorus non-numeric [facility]'s [Mass/time] in results) Medical, ) 24 hour Urine ID Date Data Source [id number] 10/16/2019 12:00:00 AM EDT [facility] ([facility]) Name Value Range Interpretation Code Description Data Kimberly rce(s) Supporting Document(s ) HCV Ab <0.1 Normal (applies to [facility] (St non-numeric results) [facility], [facility]) ID Date Data Source [id number] 10/16/2019 12:00:00 AM EDT [facility] ([facility]) Name Value Range Interpretation Code Description Data Kimberly rce(s) Supporting Document(s ) Anti-PLA2R <1.8 Normal (applies to [facility] (St non-numeric results) [facility], [facility]) ID Date Data Source [id number] 10/16/2019 12:00:00 AM EDT [facility] ([facility]) Name Value Range Interpretation Code Description Data Kimberly rce(s) Supporting Document(s ) JERMAINE Normal (applies to [facility] (St Interpreta non-numeric results) [facility] M edical, tion:U PC) ID Date Data Source [id number] 10/16/2019 12:00:00 AM EDT [facility] ([facility]) Name Value Range Interpretation Code Description Data Kimberly rce(s) Supporting Document(s ) Anti-DNA 1 IU/mL Normal (applies to [facility] (St (DS) Ab Qn non-numeric [facility]ony[facility] results) [facility], ) ID Date Data Source [id number] 10/16/2019 12:00:00 AM EDT [facility] ([facility], ) Name Value Range Interpretation Description Data Sup porting Code Source(s) Document(s ) HIV Screen Non Normal (applies [facility] (St 4th Reactive to non-numeric [facility] Generation results) [facility], ) wRfx ID Date Data Source [id number] 10/16/2019 12:00:00 AM EDT [facility] ([facility], ) ID Date Data Source [id number] 10/16/2019 12:00:00 AM EDT [facility] ([facility], ) Name Value Range Interpretation Description Data Sup porting Code Source(s) Document(s ) Antimyeloperoxidase <9.0 Normal (applies [facility] EN (St (MPO) Abs to non-numeric [facility] results) Medical, ) Antiproteinase 3 <3.5 Normal (applies [facility] (St (VT-3) Abs to non-numeric [facility] results) Medical, ) Cytoplasmic (C-ANCA) <1:20 Normal (applies MED [facility] (St to non-numeric [facility] results) Medical, ) Perinuclear (P-ANCA) <1:20 Normal (applies MED [facility] (St to non-numeric [facility] results) Medical, ) Atypical pANCA <1:20 Normal (applies [facility] (S t to non-numeric [facility] results) [facility], ) ID Date Data Source [id number] 10/16/2019 12:00:00 AM EDT [facility] ([facility]) Name Value Range Interpretation Code Description Data Kimberly rce(s) Supporting Document(s ) PDF . Normal (applies to [facility] (St non-numeric results) [facility] d[facility], PC) ID Date Data Source [id number] 10/16/2019 12:00:00 AM EDT [facility] ([facility]) Name Value Range Interpretation Code Description Data Supporting Source(s) Document(s ) PTH, Intact 83 pg/mL Above high normal [facility] ([facility]) ID Date Data Source [id number] 10/16/2019 12:00:00 AM EDT [facility] ([facility]) Name Value Range Interpretation Code Description Data Supporting Source(s) Document(s ) Ferritin, 133 ng/mL Normal (applies to [facility] (St Serum non-numeric [facility] results) Medical, PC) ID Date Data Source [id number] 10/16/2019 12:00:00 AM EDT [facility] ([facility]) Name Value Range Interpretation Code Description Data Supporting Source(s) Document(s ) JAMAR Direct Negative Normal (applies to [facility] (St non-numeric [facility] results) Medical, ) ID Date Data Source [id number] 10/16/2019 12:00:00 AM EDT [facility] ([facility]) Name Value Range Interpretation Description Data Sup porting Code Source(s) Document(s ) Deprecated 4.0 mg/dL Normal (applies to [facility] (St Phosphorus non-numeric [facility]ony's [Mass/time] in results) Medical, ) 24 hour Urine ID Date Data Source [id number] 10/16/2019 12:00:00 AM EDT [facility] ([facility]) Name Value Range Interpretation Code Description Data Kimberly rce(s) Supporting Document(s ) HCV Ab <0.1 Normal (applies to [facility] (St non-numeric results) [facility], [facility]) ID Date Data Source [id number] 10/16/2019 12:00:00 AM EDT [facility] ([facility]) Name Value Range Interpretation Code Description Data Kimberly rce(s) Supporting Document(s ) Anti-PLA2R <1.8 Normal (applies to [facility] (St non-numeric results) [facility] d[facility], ) ID Date Data Source [id number] 10/16/2019 12:00:00 AM EDT [facility] ([facility], ) Name Value Range Interpretation Code Description Data Kimberly rce(s) Supporting Document(s ) Anti-DNA 1 IU/mL Normal (applies to [facility] (St (DS) Ab Qn non-numeric [facility] results) [facility], ) ID Date Data Source [id number] 10/16/2019 12:00:00 AM EDT [facility] ([facility], ) Name Value Range Interpretation Description Data Sup porting Code Source(s) Document(s ) HIV Screen Non Normal (applies [facility] (St 4th Reactive to non-numeric [facility] Generation results) [facility], ) wRfx ID Date Data Source [id number] 10/16/2019 12:00:00 AM EDT [facility] ([facility], ) Name Value Range Interpretation Code Description Data Supporting Source(s) Document(s ) Creatinine 155.8 Normal (applies to [facility] (St , Urine mg/dL non-numeric [facility]ony[facility] results) [facility], ) Protein/Cr 3963 mg/g Above high normal [facility] (St eat Ratio creat [facility], ) ID Date Data Source [id number] 10/16/2019 12:00:00 AM EDT [facility] ([facility], ) ID Date Data Source [id number] 10/16/2019 12:00:00 AM EDT [facility] ([facility] [...] by Light microscopy ID Date Data Source [id number] 10/16/2019 12:00:00 AM EDT [facility] ([facility], ) ID Date Data Source [id number] 10/16/2019 12:00:00 AM EDT [facility] ([facility], ) Name Value Range Interpretation Description Data Sup porting Code Source(s) Document(s ) Antimyeloperoxidase <9.0 Normal (applies [facility] EN (St (MPO) Abs to non-numeric [facility] results) Medical, ) Antiproteinase 3 <3.5 Normal (applies [facility] (St (VT-3) Abs to non-numeric [facility] results) Medical, ) Cytoplasmic (C-ANCA) <1:20 Normal (applies MED GEN (St to non-numeric [facility]'s results) Medical, ) Perinuclear (P-ANCA) <1:20 Normal (applies MED GEN (St to non-numeric [facility] results) Medical, ) Atypical pANCA <1:20 Normal (applies [facility] (S t to non-numeric Dony's results) [facility], ) ID Date Data Source [id number] 10/16/2019 12:00:00 AM EDT MED[facility] ([facility], ) Name Value Range Interpretation Description Data Sup porting Code Source(s) Document(s ) Complement C4, 33 mg/dL Normal (applies to MEDGEN (St Serum non-numeric Dony's results) [facility], ) ID Date Data Source [id number] 10/16/2019 12:00:00 AM EDT MED[facility] ([facility], ) Name Value Range Interpretation Description Data Sup porting Code Source(s) Document(s ) Hemoglobin A1c 6.7 % Above high normal MEDGEN (St in Blood [facility], ) ID Date Data Source [id number] 10/16/2019 12:00:00 AM EDT [facility] ([facility], ) Name Value Range Interpretation Code Description Data Kimberly rce(s) Supporting Document(s ) Normetane 256.1 Above high normal MEDGEN (St phrine, pg/mL Dony[facility] Pl [facility], ) Metanephr 144.2 Above high normal MEDGEN (St ine, Pl pg/mL [facility], ) ID Date Data Source [id number] 10/16/2019 12:00:00 AM EDT MED[facility] ([facility], ) Name Value Range Interpretation Description Data Sup porting Code Source(s) Document(s ) Free [place] 593.88 Above high normal MEDGEN (St Lt mg/L [facility], ) Free Lambda 130.75 Above high normal MEDGEN (St Lt mg/L [facility]ony[facility] Ch[facility],Ur [facility], ) [place]/Lambd 4.54 Normal (applies to MEDGEN (S t a Ratio,U non-numeric Dony's results) [facility], ) ID Date Data Source [id number] 10/16/2019 12:00:00 AM EDT [facility] ([facility], ) Name Value Range Interpretation Description Data Sup porting Code Source(s) Document(s ) Free [place] 57.8 mg/L Above high normal MEDGEN (St Lt Chains,S [facility], ) Free Lambda 27.9 mg/L Above high normal MEDGEN (St Lt Chains,S [facility], ) [place]/Lambd 2.07 Above high normal MEDGEN (St a Ratio,S [facility], ) ID Date Data Source [id number] 10/16/2019 12:00:00 AM EDT [facility] ([facility], ) Name Value Range Interpretation Code Description Data Supporting Source(s) Document(s ) Creatinine 155.8 Normal (applies to MEDGEN (St , Urine mg/dL non-numeric Dony's results) [facility], ) Protein/Cr 3963 mg/g Above high normal MEDGEN (St eat Ratio creat [facility], ) ID Date Data Source [id number] 10/16/2019 12:00:00 AM EDT [facility] ([facility], ) Name Value Range Interpretation Description Data Sup porting Code Source(s) Document(s ) Immunofixation Normal (applies MEDGEN (S t Result, Serum to non-numeric Dony's results) [facility], ) Immunoglobulin G, 851 Normal (applies MEDGEN (St Qn, Serum mg/dL to non-numeric Dony's results) [facility]) Immunoglobulin A, 124 Normal (applies MEDGEN (St Qn, Serum mg/dL to non-numeric [facility]ony's results) [facility]) Immunoglobulin M, 30 mg/dL Normal (applies MEDGEN (St Qn, Serum to non-numeric Dony's results) [facility], ) ID Date Data Source [id number] 10/16/2019 12:00:00 AM EDT [facility] ([facility] Serum or Plasma ID Date Data Source [id number] 10/16/2019 12:00:00 AM EDT [facility] ([facility] Name Value Range Interpretation Description Data Sup porting Code Source(s) Document(s ) Microalbumin 3.1 g/dL Normal (applies MEDGEN (St [Mass/time] in to non-numeric [facility]ony's Urine collected results) Medical, for unspecified PC) duration Xxglf-5-Cicmevvl 0.8 g/dL Normal (applies MEDGEN (St to non-numeric [facility] results) [facility]) Wcokc-8-Vptjaeqa 0.3 g/dL Normal (applies MEDGEN (St to [...] results) [facility]) ID Date Data Source [id number] 10/16/2019 12:00:00 AM EDT MED[facility] ([facility] [...] results) [facility]) ID Date Data Source [id number] 10/16/2019 12:00:00 AM EDT MED[facility] ([facility] [...] by Light microscopy ID Date Data Source [id number] 10/16/2019 12:00:00 AM EDT MED[facility] ([facility] [...] Serum or Plasma ID Date Data Source [id number] 10/16/2019 12:00:00 AM EDT [facility] ([facility], ) ID Date Data Source [id number] 10/16/2019 12:00:00 AM EDT MEDGEN ([facility] [...] by Light microscopy ID Date Data Source [id number] 10/16/2019 12:00:00 AM EDT MED[facility] ([facility] [...] Serum or Plasma ID Date Data Source [id number] 10/16/2019 12:00:00 AM EDT MED[facility] ([facility] [...] results) Medical, ) ID Date Data Source [id number] 10/16/2019 12:00:00 AM EDT MED[facility] ([facility] [...] Antiproteinase 3 <3.5 Normal (applies MEDGEN (St (VT-3) Abs to non-numeric [facility] results) Medical, ) Perinuclear (P-ANCA) <1:20 Normal (applies MED GEN (St to non-numeric [facility]ony's results) Medical, ) Atypical pANCA <1:20 Normal (applies MEDGEN (S t to non-numeric [facility] results) Medical, ) ID Date Data Source [id number] 10/07/2019 12:00:00 AM EDT [facility] ([facility], ) ID Date Data Source [id number] 10/07/2019 12:00:00 AM EDT MED[facility] ([facility] [...] for unspecified duration ID Date Data Source [id number] 10/07/2019 12:00:00 AM EDT [facility] ([facility], ) Name Value Range Interpretation Code Description Data [facility] rce(s) Supporting Document(s ) ID Date Data Source [id number] 10/07/2019 12:00:00 AM EDT [facility] ([facility], ) Name Value Range Interpretation Code Description Data Supporting Source(s) Document(s ) PDF . Normal (applies to MEDGEN (St non-numeric [facility]'s results) Medical, ) PDF Not applicable Normal (applies to MEDGEN (St non-numeric [facility] results) [facility], ) ID Date Data Source [id number] 10/07/2019 12:00:00 AM EDT [facility] ([facility] [...] [facility], ) ID Date Data Source [id number] 10/07/2019 12:00:00 AM EDT MED[facility] ([facility] [...] by Light microscopy ID Date Data Source [id number] 10/07/2019 12:00:00 AM EDT [facility] ([facility], ) ID Date Data Source [id number] 10/07/2019 12:00:00 AM EDT [facility] ([facility], ) ID Date Data Source [id number] 10/07/2019 12:00:00 AM EDT MED[facility] ([facility] [...] for unspecified duration ID Date Data Source [id number] 10/07/2019 12:00:00 AM EDT [facility] ([facility], ) Name Value Range Interpretation Code Description Data Kimberly rce(s) Supporting Document(s ) ID Date Data Source [id number] 10/07/2019 12:00:00 AM EDT [facility] ([facility], ) Name Value Range Interpretation Code Description Data Supporting Source(s) Document(s ) PDF . Normal (applies to MEDGEN (St non-numeric [facility]ony's results) Medical, ) PDF Not applicable Normal (applies to MEDGEN (St non-numeric Dony's results) [facility], ) ID Date Data Source [id number] 10/07/2019 12:00:00 AM EDT [facility] ([facility] [employer]) ID Date Data Source [id number] 10/07/2019 12:00:00 AM EDT MED[facility] ([facility] [...] by Light microscopy ID Date Data Source [id number] 10/07/2019 12:00:00 AM EDT [facility] ([facility], ) ID Date Data Source [id number] 10/07/2019 12:00:00 AM EDT [facility] ([facility], ) ID Date Data Source [id number] 10/07/2019 12:00:00 AM EDT [facility] ([facility] [...] Serum or Plasma ID Date Data Source [id number] 10/07/2019 12:00:00 AM EDT [facility] ([facility], ) Name Value Range Interpretation Code Description Data Kimberly rce(s) Supporting Document(s ) ID Date Data Source [id number] 10/07/2019 12:00:00 AM EDT [facility] ([facility], ) Name Value Range Interpretation Code Description Data Supporting Source(s) Document(s ) PDF Not applicable Normal (applies to MED[facility] (St non-numeric [facility] results) Medical, ) PDF . Normal (applies to MEDGEN (St non-numeric [facility] results) Medical, ) ID Date Data Source [id number] 10/07/2019 12:00:00 AM EDT [facility] ([facility] [...] [facility], ) ID Date Data Source [id number] 10/07/2019 12:00:00 AM EDT [facility] ([facility] [...] by Light microscopy ID Date Data Source [id number] 10/07/2019 12:00:00 AM EDT [facility] ([facility] [...] results) Medical, ) ID Date Data Source [id number] 10/07/2019 12:00:00 AM EDT [facility] ([facility], ) Name Value Range Interpretation Code Description Data Supporting Source(s) Document(s ) PDF . Normal (applies to MEDGEN (St non-numeric [facility]ony's results) Medical, ) PDF Not applicable Normal (applies to [facility] (St non-numeric [facility]ony's results) Medical, ) ID Date Data Source [id number] 10/07/2019 12:00:00 AM EDT [facility] ([facility] [...] for unspecified duration ID Date Data Source [id number] 10/07/2019 12:00:00 AM EDT [facility] ([facility], ) Name Value Range Interpretation Code Description Data Kimberly rce(s) Supporting Document(s ) ID Date Data Source [id number] 10/07/2019 12:00:00 AM EDT [facility] ([facility], ) Name Value Range Interpretation Code Description Data Supporting Source(s) Document(s ) PDF Not applicable Normal (applies to MEDGEN (St non-numeric [facility]'s results) Medical, ) PDF . Normal (applies to MED[facility] (St non-numeric [facility] results) Medical, ) ID Date Data Source [id number] 10/07/2019 12:00:00 AM EDT MED[facility] ([facility] [...] by Light microscopy ID Date Data Source [id number] 10/07/2019 12:00:00 AM EDT [facility] ([facility], ) ID Date Data Source [id number] 10/07/2019 12:00:00 AM EDT [facility] ([facility], ) ID Date Data Source [id number] 10/07/2019 12:00:00 AM EDT MED[facility] ([facility] [...] for unspecified duration ID Date Data Source [id number] 10/07/2019 12:00:00 AM EDT [facility] ([facility], ) Name Value Range Interpretation Code Description Data Kimberly rce(s) Supporting Document(s ) ID Date Data Source [id number] 10/07/2019 12:00:00 AM EDT [facility] ([facility] Name Value Range Interpretation Code Description Data Supporting Source(s) Document(s ) PDF . Normal (applies to MEDGEN (St non-numeric [facility]ony's results) Medical, ) PDF Not applicable Normal (applies to MEDGEN (St non-numeric [facility]ony's results) Medical, ) ID Date Data Source [id number] 10/07/2019 12:00:00 AM EDT [facility] ([facility] [...] [facility], ) ID Date Data Source [id number] 10/07/2019 12:00:00 AM EDT MED[facility] ([facility] [...] by Light microscopy ID Date Data Source [id number] 10/07/2019 12:00:00 AM EDT [facility] ([facility], ) ID Date Data Source [id number] 10/07/2019 12:00:00 AM EDT [facility] ([facility], ) ID Date Data Source [id number] 10/07/2019 12:00:00 AM EDT MEDGEN ([facility] [...] for unspecified duration ID Date Data Source [id number] 10/07/2019 12:00:00 AM EDT [facility] ([facility], ) ID Date Data Source [id number] 10/07/2019 12:00:00 AM EDT MED[facility] ([facility] [...] by Light microscopy ID Date Data Source [id number] 10/07/2019 12:00:00 AM EDT [facility] ([facility] [...] results) Medical, ) ID Date Data Source [id number] 10/07/2019 12:00:00 AM EDT [facility] ([facility] Name Value Range Interpretation Code Description Data Supporting Source(s) Document(s ) PDF . Normal (applies to MEDGEN (St non-numeric [facility]ony's results) Medical, ) PDF Not applicable Normal (applies to MEDGEN (St non-numeric [facility]ony's results) Medical, ) ID Date Data Source [id number] 10/07/2019 12:00:00 AM EDT MED[facility] ([facility] [...] for unspecified duration ID Date Data Source [id number] 10/07/2019 12:00:00 AM EDT [facility] ([facility]) Name Value Range Interpretation Code Description Data Kimberly rce(s) Supporting Document(s ) ID Date Data Source [id number] 10/07/2019 12:00:00 AM EDT [facility] ([facility], ) Name Value Range Interpretation Code Description Data Supporting Source(s) Document(s ) PDF . Normal (applies to MEDGEN (St non-numeric [facility]ony's results) Medical, ) PDF Not applicable Normal (applies to MEDGEN (St non-numeric [facility]ony's results) Medical, ) ID Date Data Source [id number] 10/07/2019 12:00:00 AM EDT [facility] ([facility] [...] [facility], ) ID Date Data Source [id number] 10/07/2019 12:00:00 AM EDT MED[facility] ([facility] [...] by Light microscopy ID Date Data Source [id number] 10/07/2019 12:00:00 AM EDT [facility] ([facility] [...] results) [facility]) ID Date Data Source [id number] 10/07/2019 12:00:00 AM EDT [facility] ([facility]) Name Value Range Interpretation Code Description Data Supporting Source(s) Document(s ) PDF . Normal (applies to MEDGEN (St non-numeric [facility]ony's results) [facility]) PDF Not applicable Normal (applies to MED[facility] (St non-numeric [facility] results) [facility]) ID Date Data Source [id number] 10/07/2019 12:00:00 AM EDT MEDGEN ([facility] [...] (S t Ratio to non-numeric Dony's results) [facility]) Sodium 145 Above high normal MEDGEN (St [Moles/volume] mmol/L [facility]ony's in Serum or Medical, ) Plasma Chloride 111 Above high normal MEDGEN (St [Moles/volume] mmol/L [facility] in Serum or [facility], ) Plasma Potassium 4.1 Normal (applies MEDGEN (St [Mass/volume] mmol/L to non-numeric Dony's in Blood results) [facility]) Carbon dioxide, 20 mmol/L Normal (applies MEDGEN ( St total to non-numeric Dony's [Moles/volume] results) [facility], ) in Serum or Plasma Calcium 8.2 mg/dL Below low normal MEDGEN (St [Moles/volume] [facility]ony[facility] in Urine [facility], ) collected for unspecified duration ID Date Data Source [id number] 10/07/2019 12:00:00 AM EDT [facility] ([facility], ) Name Value Range Interpretation Code Description Data Kimberly rce(s) Supporting Document(s ) ID Date Data Source [id number] 10/07/2019 12:00:00 AM EDT [facility] ([facility], ) Name Value Range Interpretation Code Description Data Supporting Source(s) Document(s ) Creatinine 145.9 Normal (applies to MEDGEN (St , Urine mg/dL non-numeric [facility]ony's results) [facility]) Albumin, 2994.7 Normal (applies to MEDGEN (St Urine ug/mL non-numeric Dony's results) [facility], ) Alb/Creat 2053 mg/g Above high normal MEDGEN (St Ratio creat Dony's [facility], ) ID Date Data Source [id number] 10/07/2019 12:00:00 AM EDT [facility] ([facility], ) ID Date Data Source [id number] 10/07/2019 12:00:00 AM EDT MEDGEN ([facility] [...] for unspecified duration ID Date Data Source [id number] 10/07/2019 12:00:00 AM EDT [facility] ([facility], ) Name Value Range Interpretation Code Description Data Kimberly rce(s) Supporting Document(s ) ID Date Data Source [id number] 10/07/2019 12:00:00 AM EDT [facility] ([facility], ) Name Value Range Interpretation Code Description Data Supporting Source(s) Document(s ) PDF . Normal (applies to MEDGEN (St non-numeric Dony's results) Medical, ) PDF Not applicable Normal (applies to MEDGEN (St non-numeric [facility]ony's results) Medical, ) ID Date Data Source [id number] 10/07/2019 12:00:00 AM EDT [facility] ([facility], ) ID Date Data Source [id number] 10/07/2019 12:00:00 AM EDT MEDGEN ([facility] [...] by Light microscopy ID Date Data Source [id number] 10/07/2019 12:00:00 AM EDT MED[facility] ([facility] [...] results) Medical, ) ID Date Data Source [id number] 10/07/2019 12:00:00 AM EDT [facility] ([facility], ) Name Value Range Interpretation Code Description Data Supporting Source(s) Document(s ) PDF . Normal (applies to MEDGEN (St non-numeric [facility]ony's results) Medical, ) PDF Not applicable Normal (applies to MEDGEN (St non-numeric [facility] results) Medical, ) ID Date Data Source [id number] 10/07/2019 12:00:00 AM EDT MED[facility] ([facility] [...] for unspecified duration ID Date Data Source [id number] 10/07/2019 12:00:00 AM EDT [facility] ([facility] Name Value Range Interpretation Code Description Data Kimberly rce(s) Supporting Document(s ) ID Date Data Source [id number] 10/07/2019 12:00:00 AM EDT [facility] ([facility], ) Name Value Range Interpretation Code Description Data Supporting Source(s) Document(s ) PDF Not applicable Normal (applies to MEDGEN (St non-numeric Dony's results) Medical, ) PDF . Normal (applies to MEDGEN (St non-numeric Dony's results) [facility], ) ID Date Data Source [id number] 10/07/2019 12:00:00 AM EDT MEDGEN ([facility] [...] Above high normal MEDGEN (St Ratio creat [facility], ) ID Date Data Source [id number] 10/07/2019 12:00:00 AM EDT MED[facility] ([facility] [...] by Light microscopy ID Date Data Source [id number] 10/07/2019 12:00:00 AM EDT MED[facility] ([facility] [...] to non-numeric [facility]ony's results) Medical, ) Urobilinogen,Nani 1.0 mg/dL Normal [...] results) Medical, ) ID Date Data Source [id number] 10/07/2019 12:00:00 AM EDT [facility] ([facility], ) Name Value Range Interpretation Code Description Data Supporting Source(s) Document(s ) PDF . Normal (applies to MEDGEN (St non-numeric [facility]ony's results) Medical, ) PDF Not applicable Normal (applies to MEDGEN (St non-numeric Dony's results) [facility], ) ID Date Data Source [id number] 10/07/2019 12:00:00 AM EDT MEDGEN ([facility] [...] for unspecified duration ID Date Data Source [id number] 10/07/2019 12:00:00 AM EDT [facility] ([facility], ) Name Value Range Interpretation Code Description Data Kimberly rce(s) Supporting Document(s ) ID Date Data Source [id number] 10/07/2019 12:00:00 AM EDT MED[facility] ([facility] [...] (St to non-numeric Doyn's results) Medical, ) Bilirubin Negative Normal (applies [...] results) Medical, ) ID Date Data Source [id number] 10/07/2019 12:00:00 AM EDT [facility] ([facility] [...] [facility], ) ID Date Data Source [id number] 10/07/2019 12:00:00 AM EDT MED[facility] ([facility] [...] by Light microscopy ID Date Data Source [id number] 10/07/2019 12:00:00 AM EDT MED[facility] ([facility] [...] results) Medical, ) ID Date Data Source [id number] 10/07/2019 12:00:00 AM EDT [facility] ([facility], ) Name Value Range Interpretation Code Description Data Supporting Source(s) Document(s ) PDF . Normal (applies to MEDGEN (St non-numeric [facility]ony's results) Medical, ) PDF Not applicable Normal (applies to MEDGEN (St non-numeric [facility]ony's results) Medical, ) ID Date Data Source [id number] 10/07/2019 12:00:00 AM EDT MEDGEN ([facility] [...] for unspecified duration ID Date Data Source [id number] 10/07/2019 12:00:00 AM EDT [facility] ([facility], ) Name Value Range Interpretation Code Description Data Kimberly rce(s) Supporting Document(s ) ID Date Data Source [id number] 10/07/2019 12:00:00 AM EDT [facility] ([facility], ) ID Date Data Source [id number] 10/07/2019 12:00:00 AM EDT [facility] ([facility], ) ID Date Data Source [id number] 10/07/2019 12:00:00 AM EDT MED[facility] ([facility] [...] results) [facility]) ID Date Data Source [id number] 10/07/2019 12:00:00 AM EDT MED[facility] ([facility] [...] results) [facility]) ID Date Data Source [id number] 10/07/2019 12:00:00 AM EDT [facility] ([facility]) Name Value Range Interpretation Code Description Data Kimberly rce(s) Supporting Document(s ) Normetane 256.1 Above high normal MEDGEN (St phrine, pg/mL [facility], ) Metanephr 144.2 Above high normal MEDGEN (St ine, Pl pg/mL [facility], ) ID Date Data Source [id number] 10/07/2019 12:00:00 AM EDT MED[facility] ([facility] [...] for unspecified duration ID Date Data Source [id number] 10/07/2019 12:00:00 AM EDT [facility] ([facility]) Name Value Range Interpretation Code Description Data Kimberly rce(s) Supporting Document(s ) ID Date Data Source [id number] 10/07/2019 12:00:00 AM EDT [facility] ([facility], ) Name Value Range Interpretation Code Description Data Supporting Source(s) Document(s ) PDF . Normal (applies to MEDGEN (St non-numeric Dony's results) Medical, ) PDF Not applicable Normal (applies to MEDGEN (St non-numeric Dony's results) Medical, ) ID Date Data Source [id number] 10/07/2019 12:00:00 AM EDT [facility] ([facility], ) ID Date Data Source [id number] 10/07/2019 12:00:00 AM EDT MEDGEN ([facility] [...] by Light microscopy ID Date Data Source [id number] 10/07/2019 12:00:00 AM EDT [facility] ([facility], ) ID Date Data Source [id number] 10/07/2019 12:00:00 AM EDT MEDGEN ([facility] [...] St total to non-numeric Dony's [Moles/volume] results) [facility]) in Serum or Plasma Glucose 154 mg/dL [...] Am mL/min/1. to non-numeric Dony's 73 results) [facility] ) Creatinine 1.13 Normal (applies MEDGEN (St [...] Serum or Plasma ID Date Data Source [id number] 10/07/2019 12:00:00 AM EDT [facility] ([facility], ) Name Value Range Interpretation Code Description Data Kimberly rce(s) Supporting Document(s ) ID Date Data Source [id number] 10/07/2019 12:00:00 AM EDT MEDGEN ([facility] [...] . Normal (applies to MEDGEN (St non-numeric Dnoy's results) Medical, ) PDF Image . Normal (applies to MEDGEN (St non-numeric Dony's results) Medical, ) ID Date Data Source [id number] 10/07/2019 12:00:00 AM EDT MED[facility] ([facility] [...] results) Medical, ) ID Date Data Source [id number] 10/07/2019 12:00:00 AM EDT MEDGEN ([facility] [...] by Light microscopy ID Date Data Source [id number] 10/07/2019 12:00:00 AM EDT [facility] ([facility], ) ID Date Data Source [id number] 09/23/2019 12:00:00 AM EDT [facility] ([facility], ) Name Value Range Interpretation Code Description Data Kimberly rce(s) Supporting Document(s ) ID Date Data Source [id number] 09/23/2019 12:00:00 AM EDT [facility] ([facility], ) Name Value Range Interpretation Code Description Data Kimberly rce(s) Supporting Document(s ) PDF Image . Normal (applies to MEDGEN (St non-numeric results) [facility], ) ID Date Data Source [id number] 09/23/2019 12:00:00 AM EDT [facility] ([facility], ) Name Value Range Interpretation Description Data Sup porting Code Source(s) Document(s ) Osmolality of 387 Normal (applies to MEDGEN (St Urine mOsmol/kg non-numeric Dony's results) [facility], ) ID Date Data Source [id number] 09/23/2019 12:00:00 AM EDT MEDGEN (St [facility] sandoval's [facility], ) Name Value Range Interpretation Description Data Sup porting Code Source(s) Document(s ) Osmolality of 308 Above high normal MEDGEN ( St Serum or mOsmol/kg Dony's Plasma [facility], ) ID Date Data Source [id number] 09/23/2019 12:00:00 AM EDT MEDGEN ([facility] [...] Serum or Plasma ID Date Data Source [id number] 09/23/2019 12:00:00 AM EDT [facility] ([facility]) Name Value Range Interpretation Code Description Data Kimberly rce(s) Supporting Document(s ) ID Date Data Source [id number] 09/23/2019 12:00:00 AM EDT [facility] ([facility] Name Value Range Interpretation Code Description Data Kimberly rce(s) Supporting Document(s ) PDF Image . Normal (applies to MEDGEN (St non-numeric results) [facility], ) ID Date Data Source [id number] 09/23/2019 12:00:00 AM EDT [facility] ([facility]) Name Value Range Interpretation Description Data Sup porting Code Source(s) Document(s ) Osmolality of 387 Normal (applies to MEDGEN (St Urine mOsmol/kg non-numeric Dony's results) Medical, ) ID Date Data Source [id number] 09/23/2019 12:00:00 AM EDT [facility] ([facility], ) Name Value Range Interpretation Description Data Sup porting Code Source(s) Document(s ) Osmolality of 308 Above high normal [facility] ( St Serum or mOsmol/kg [facility] Plasma [facility], ) ID Date Data Source [id number] 09/23/2019 12:00:00 AM EDT [facility] ([facility] [...] for unspecified duration ID Date Data Source [id number] 09/23/2019 12:00:00 AM EDT [facility] ([facility], ) Name Value Range Interpretation Code Description Data Kimberly rce(s) Supporting Document(s ) ID Date Data Source [id number] 09/23/2019 12:00:00 AM EDT [facility] ([facility], ) Name Value Range Interpretation Code Description Data Kimberly rce(s) Supporting Document(s ) PDF Image . Normal (applies to [facility] (St non-numeric results) [facility], ) ID Date Data Source [id number] 09/23/2019 12:00:00 AM EDT [facility] ([facility] ) Name Value Range Interpretation Description Data Sup porting Code Source(s) Document(s ) Osmolality of 387 Normal (applies to [facility] (St Urine mOsmol/kg non-numeric [facility] results) [facility], ) ID Date Data Source [id number] 09/23/2019 12:00:00 AM EDT [facility] ([facility] ) Name Value Range Interpretation Description Data Sup porting Code Source(s) Document(s ) Osmolality of 308 Above high normal [facility] ( St Serum or mOsmol/kg [facility], ) ID Date Data Source [id number] 09/23/2019 12:00:00 AM EDT [facility] ([facility] [...] for unspecified duration ID Date Data Source [id number] 09/23/2019 12:00:00 AM EDT [facility] ([facility] ) Name Value Range Interpretation Code Description Data Kimberly rce(s) Supporting Document(s ) ID Date Data Source [id number] 09/23/2019 12:00:00 AM EDT [facility] ([facility] ) Name Value Range Interpretation Code Description Data Kimberly rce(s) Supporting Document(s ) PDF Image . Normal (applies to [facility] (St non-numeric results) [facility], ) ID Date Data Source [id number] 09/23/2019 12:00:00 AM EDT [facility] ([facility] ) Name Value Range Interpretation Description Data Sup porting Code Source(s) Document(s ) Osmolality of 387 Normal (applies to [facility] (St Urine mOsmol/kg non-numeric [facility] results) [facility], ) ID Date Data Source [id number] 09/23/2019 12:00:00 AM EDT [facility] ([facility], ) Name Value Range Interpretation Description Data Sup porting Code Source(s) Document(s ) Osmolality of 308 Above high normal [facility] ( St Serum or mOsmol/kg [facility] Plasma [facility], ) ID Date Data Source [id number] 09/23/2019 12:00:00 AM EDT [facility] ([facility] [...] Serum or Plasma ID Date Data Source [id number] 09/23/2019 12:00:00 AM EDT [facility] ([facility] ) Name Value Range Interpretation Code Description Data Kimberly rce(s) Supporting Document(s ) ID Date Data Source [id number] 09/23/2019 12:00:00 AM EDT [facility] Name Value Range Interpretation Code Description Data Kimberly rce(s) Supporting Document(s ) PDF Image . Normal (applies to [facility] (St non-numeric results) [facility], ) ID Date Data Source [id number] 09/23/2019 12:00:00 AM EDT [facility] ([facility] ) Name Value Range Interpretation Description Data Sup porting Code Source(s) Document(s ) Osmolality of 387 Normal (applies to [facility] (St Urine mOsmol/kg non-numeric [facility] results) [facility], ) ID Date Data Source [id number] 09/23/2019 12:00:00 AM EDT [facility] ([facility] ) Name Value Range Interpretation Description Data Sup porting Code Source(s) Document(s ) Osmolality of 308 Above high normal [facility] ( St Serum or mOsmol/kg [facility] Plasma [facility], ) ID Date Data Source [id number] 09/23/2019 12:00:00 AM EDT [facility] ([facility] [...] normal [facility] (St NonAfricn Am mL/min/1. [facility] [address] [place] [address], ) eGFR If Africn 40 Below low [...] for unspecified duration ID Date Data Source [id number] 09/23/2019 12:00:00 AM EDT [facility] ([facility] ) Name Value Range Interpretation Code Description Data Kimberly rce(s) Supporting Document(s ) ID Date Data Source [id number] 09/23/2019 12:00:00 AM EDT [facility] Name Value Range Interpretation Code Description Data Kimberly rce(s) Supporting Document(s ) PDF Image . Normal (applies to [facility] (St non-numeric results) [facility], ) ID Date Data Source [id number] 09/23/2019 12:00:00 AM EDT [facility] Name Value Range Interpretation Description Data Sup porting Code Source(s) Document(s ) Osmolality of 387 Normal (applies to [facility] (St Urine mOsmol/kg non-numeric [facility] results) [facility], ) ID Date Data Source [id number] 09/23/2019 12:00:00 AM EDT [facility] ([facility] Name Value Range Interpretation Description Data Sup porting Code Source(s) Document(s ) Osmolality of 308 Above high normal [facility] ( St Serum or mOsmol/kg [facility], ) ID Date Data Source [id number] 09/23/2019 12:00:00 AM EDT [facility] ([facility] [...] normal [facility] (St NonAfricn Am mL/min/1. [facility] [address] [place] [address], ) BUN/Creatinine 14 Normal (applies [facility] (S [...] for unspecified duration ID Date Data Source [id number] 09/23/2019 12:00:00 AM EDT [facility] ) Name Value Range Interpretation Code Description Data Kimberly rce(s) Supporting Document(s ) ID Date Data Source [id number] 09/23/2019 12:00:00 AM EDT [facility] Name Value Range Interpretation Code Description Data Kimberly rce(s) Supporting Document(s ) PDF Image . Normal (applies to [facility] (St non-numeric results) [facility], ) ID Date Data Source [id number] 09/23/2019 12:00:00 AM EDT [facility] ([facility] [...] (applies [facility] (St [Moles/volume] mmol/L to non-numeric [facility] in Serum or results) [facility], ) ID Date Data Source [id number] 09/23/2019 12:00:00 AM EDT [facility] ([facility], ) Name Value Range Interpretation Description Data Sup porting Code Source(s) Document(s ) Osmolality of 308 Above high normal [facility] ( St Serum or mOsmol/kg [facility] Plasma [facility], ) ID Date Data Source [id number] 09/23/2019 12:00:00 AM EDT [facility] ([facility] [...] for unspecified duration ID Date Data Source [id number] 09/23/2019 12:00:00 AM EDT [facility] ([facility] ) Name Value Range Interpretation Code Description Data Kimberly rce(s) Supporting Document(s ) ID Date Data Source [id number] 09/23/2019 12:00:00 AM EDT [facility] Name Value Range Interpretation Code Description Data Kimberly rce(s) Supporting Document(s ) PDF Image . Normal (applies to [facility] (St non-numeric results) [facility], ) ID Date Data Source [id number] 09/23/2019 12:00:00 AM EDT [facility] ([facility] ) Name Value Range Interpretation Description Data Sup porting Code Source(s) Document(s ) Osmolality of 387 Normal (applies to [facility] (St Urine mOsmol/kg non-numeric [facility] results) [facility], ) ID Date Data Source [id number] 09/23/2019 12:00:00 AM EDT [facility] ([facility], ) Name Value Range Interpretation Description Data Sup porting Code Source(s) Document(s ) Osmolality of 308 Above high normal [facility] ( St Serum or mOsmol/kg [facility] Plasma [facility], ) ID Date Data Source [id number] 09/23/2019 12:00:00 AM EDT [facility] ([facility] [...] for unspecified duration ID Date Data Source [id number] 09/23/2019 12:00:00 AM EDT [facility] Name Value Range Interpretation Code Description Data Kimberly rce(s) Supporting Document(s ) ID Date Data Source [id number] 09/23/2019 12:00:00 AM EDT [facility] ([facility] Name Value Range Interpretation Code Description Data Kimberly rce(s) Supporting Document(s ) PDF Image . Normal (applies to [facility] (St non-numeric results) [facility], ) ID Date Data Source [id number] 09/23/2019 12:00:00 AM EDT [facility] ([facility] Name Value Range Interpretation Description Data Sup porting Code Source(s) Document(s ) Osmolality of 387 Normal (applies to [facility] (St Urine mOsmol/kg non-numeric [facility] results) [facility], ) ID Date Data Source [id number] 09/23/2019 12:00:00 AM EDT [facility] ([facility] Name Value Range Interpretation Description Data Sup porting Code Source(s) Document(s ) Osmolality of 308 Above high normal [facility] ( St Serum or mOsmol/kg [facility], ) ID Date Data Source [id number] 09/23/2019 12:00:00 AM EDT [facility] ([facility] [...] for unspecified duration ID Date Data Source [id number] 09/23/2019 12:00:00 AM EDT [facility] ([facility] ) Name Value Range Interpretation Code Description Data Kimberly rce(s) Supporting Document(s ) ID Date Data Source [id number] 09/23/2019 12:00:00 AM EDT [facility] ([facility] ) Name Value Range Interpretation Code Description Data Kimberly rce(s) Supporting Document(s ) PDF Image . Normal (applies to [facility] (St non-numeric results) [facility]) ID Date Data Source [id number] 09/23/2019 12:00:00 AM EDT [facility] ([facility] ) Name Value Range Interpretation Description Data Sup porting Code Source(s) Document(s ) Osmolality of 387 Normal (applies to [facility] (St Urine mOsmol/kg non-numeric [facility] results) [facility], ) ID Date Data Source [id number] 09/23/2019 12:00:00 AM EDT [facility] ([facility] ) Name Value Range Interpretation Description Data Sup porting Code Source(s) Document(s ) Osmolality of 308 Above high normal [facility] ( St Serum or mOsmol/kg [facility] Plasma [facility], ) ID Date Data Source [id number] 09/23/2019 12:00:00 AM EDT [facility] ([facility] [...] for unspecified duration ID Date Data Source [id number] 09/23/2019 12:00:00 AM EDT [facility] ([facility] ) Name Value Range Interpretation Code Description Data Kimberly rce(s) Supporting Document(s ) ID Date Data Source [id number] 09/23/2019 12:00:00 AM EDT [facility] ([facility] ) Name Value Range Interpretation Code Description Data Kimberly rce(s) Supporting Document(s ) PDF Image . Normal (applies to [facility] (St non-numeric results) [facility], ) ID Date Data Source [id number] 09/23/2019 12:00:00 AM EDT [facility] ([facility] ) Name Value Range Interpretation Description Data Sup porting Code Source(s) Document(s ) Osmolality of 387 Normal (applies to [facility] (St Urine mOsmol/kg non-numeric [facility] results) [facility], ) ID Date Data Source [id number] 09/23/2019 12:00:00 AM EDT [facility] ([facility], ) Name Value Range Interpretation Description Data Sup porting Code Source(s) Document(s ) Osmolality of 308 Above high normal [facility] ( St Serum or mOsmol/kg [facility] Plasma [facility], ) ID Date Data Source [id number] 09/23/2019 12:00:00 AM EDT [facility] ([facility] [...] Serum or Plasma ID Date Data Source [id number] 09/23/2019 12:00:00 AM EDT [facility] ) Name Value Range Interpretation Description Data Sup porting Code Source(s) Document(s ) Osmolality of 308 Above high normal [facility] ( St Serum or mOsmol/kg [facility] Plasma [facility], ) ID Date Data Source [id number] 09/23/2019 12:00:00 AM EDT [facility] ([facility] [...] for unspecified duration ID Date Data Source [id number] 09/23/2019 12:00:00 AM EDT [facility] ([facility] ) Name Value Range Interpretation Code Description Data Kimberly rce(s) Supporting Document(s ) ID Date Data Source [id number] 09/23/2019 12:00:00 AM EDT [facility] Name Value Range Interpretation Code Description Data Kimberly rce(s) Supporting Document(s ) PDF Image . Normal (applies to [facility] (St non-numeric results) [facility], ) ID Date Data Source [id number] 09/23/2019 12:00:00 AM EDT [facility] ([facility] ) Name Value Range Interpretation Description Data Sup porting Code Source(s) Document(s ) Osmolality of 387 Normal (applies to [facility] (St Urine mOsmol/kg non-numeric [facility] results) [facility], ) ID Date Data Source [id number] 09/23/2019 12:00:00 AM EDT [facility] ([facility] ) Name Value Range Interpretation Description Data Sup porting Code Source(s) Document(s ) Osmolality of 308 Above high normal [facility] ( St Serum or mOsmol/kg [facility] Plasma [facility], ) ID Date Data Source [id number] 09/23/2019 12:00:00 AM EDT [facility] ([facility] [...] for unspecified duration ID Date Data Source [id number] 09/23/2019 12:00:00 AM EDT [facility] ([facility] ) Name Value Range Interpretation Code Description Data Kimberly rce(s) Supporting Document(s ) ID Date Data Source [id number] 09/23/2019 12:00:00 AM EDT [facility] ([facility] [...] results) Medical, ) ID Date Data Source [id number] 09/23/2019 12:00:00 AM EDT [facility] ([facility], ) Name Value Range Interpretation Description Data Sup porting Code Source(s) Document(s ) Osmolality of 387 Normal (applies to [facility] (St Urine mOsmol/kg non-numeric [facility] results) [facility], ) ID Date Data Source [id number] 09/23/2019 12:00:00 AM EDT [facility] ([facility], ) Name Value Range Interpretation Description Data Sup porting Code Source(s) Document(s ) Osmolality of 308 Above high normal [facility] ( St Serum or mOsmol/kg [facility], ) ID Date Data Source [id number] 09/23/2019 12:00:00 AM EDT [facility] ([facility] [...] (S t Ratio to non-numeric [facility] results) [facility]) Potassium 4.5 Normal (applies [facility] (St [Mass/volume] mmol/L to non-numeric [facility] in Blood results) [facility]) Chloride 103 Normal (applies [facility] (St [Moles/volume] mmol/L to non-numeric [facility] in Serum or results) [facility], ) Plasma Calcium 9.8 mg/dL Normal (applies [facility] (St [Moles/volume] to non-numeric [facility] in Urine results) [facility]) collected for unspecified duration Carbon dioxide, 19 mmol/L Below low normal [facility] (St total [facility] [Moles/volume] [facility]) in Serum or Plasma Urea nitrogen 28 mg/dL Above high normal [facility] ( St [Mass/volume] [facility] in Serum or [facility], ) Plasma Glucose 320 mg/dL Above high normal [facility] (St [Mass/volume] [facility] in Urine [facility]) collected for unspecified duration Creatinine 1.40 Above high normal [facility] (St [Interpretation mg/dL [facility] ] in Urine [facility]) eGFR If 57 Below low normal [facility] (St NonAfricn Am mL/min/1. [facility] 73 [facility], ) BUN/Creatinine 20 Normal (applies [facility] (S t Ratio to non-numeric [facility] results) [facility]) eGFR If Africn 65 Normal (applies [facility] (S t Am mL/min/1. to non-numeric [facility] 73 results) [facility]) Potassium 4.3 Normal (applies [facility] (St [Mass/volume] mmol/L to non-numeric [facility] in Blood results) [facility], ) Sodium 141 Normal (applies [facility] (St [Moles/volume] mmol/L to non-numeric [facility] in Serum or results) [facility], ) Plasma Chloride 103 Normal (applies [facility] (St [Moles/volume] mmol/L to non-numeric [facility] in Serum or results) [facility]) Plasma Carbon dioxide, 22 mmol/L Normal (applies [facility] ( St total to non-numeric [facility] [Moles/volume] results) [facility], ) in Serum or Plasma Calcium 8.9 mg/dL Normal (applies [facility] (St [Moles/volume] to non-numeric [facility] in Urine results) [facility], [facility]) collected for unspecified duration ID Date Data Source [id number] 08/29/2019 12:00:00 AM EDT [facility] Name Value Range Interpretation Code Description Data Kimberly rce(s) Supporting Document(s ) 2018-nCoV [facility] RNA XXX REBEKA+probe- Imp This lab was ordered by [facility]-Tianna DONOVAN and reported by [employer]. ID Date Data Source [id number] 04/16/2019 12:00:00 AM EST [facility] Name Value Range Interpretation Code Description Data Kimberly rce(s) Supporting Document(s ) ID Date Data Source [id number] 04/16/2019 12:00:00 AM EST [facility] Name Value Range Interpretation Code Description Data Kimberly rce(s) Supporting Document(s ) PDF Image . Normal (applies to [facility] (St non-numeric results) [facility]) ID Date Data Source [id number] 04/16/2019 12:00:00 AM EST [facility] Name Value Range Interpretation Description Data Sup porting Code Source(s) Document(s ) Hemoglobin 8.5 % Above high normal [facility] (St A1c/Hemoglobin. [facility] total in Blood [facility], [facility]) ID Date Data Source [id number] 04/16/2019 12:00:00 AM EST [facility] Name Value Range Interpretation Code Description Data Kimberly rce(s) Supporting Document(s ) ID Date Data Source [id number] 04/16/2019 12:00:00 AM EST [facility] Name Value Range Interpretation Code Description Data Kimberly rce(s) Supporting Document(s ) PDF Image . Normal (applies to [facility] (St non-numeric results) [facility]) ID Date Data Source [id number] 04/16/2019 12:00:00 AM EST [facility] Name Value Range Interpretation Description Data Sup porting Code Source(s) Document(s ) Hemoglobin 8.5 % Above high normal [facility] (St A1c/Hemoglobin. [facility] total in Blood [facility], [facility]) ID Date Data Source [id number] 04/16/2019 12:00:00 AM EST [facility] Name Value Range Interpretation Code Description Data Kimberly rce(s) Supporting Document(s ) ID Date Data Source [id number] 04/16/2019 12:00:00 AM EST [facility] Name Value Range Interpretation Code Description Data Kimberly rce(s) Supporting Document(s ) PDF Image . Normal (applies to [facility] (St non-numeric results) [facility]) ID Date Data Source [id number] 04/16/2019 12:00:00 AM EST [facility] Name Value Range Interpretation Description Data Sup porting Code Source(s) Document(s ) Hemoglobin 8.5 % Above high normal [facility] (St A1c/Hemoglobin. [facility] total in Blood [facility], [facility]) ID Date Data Source [id number] 04/16/2019 12:00:00 AM EST [facility] Name Value Range Interpretation Code Description Data Kimberly rce(s) Supporting Document(s ) ID Date Data Source [id number] 04/16/2019 12:00:00 AM EST [facility] Name Value Range Interpretation Code Description Data Kimberly rce(s) Supporting Document(s ) PDF Image . Normal (applies to [facility] (St non-numeric results) [facility]) ID Date Data Source [id number] 04/16/2019 12:00:00 AM EST [facility] Name Value Range Interpretation Code Description Data Kimberly rce(s) Supporting Document(s ) ID Date Data Source [id number] 04/16/2019 12:00:00 AM EST [facility] Name Value Range Interpretation Code Description Data Kimberly rce(s) Supporting Document(s ) PDF Image . Normal (applies to [facility] (St non-numeric results) [facility]) ID Date Data Source [id number] 04/16/2019 12:00:00 AM EST [facility] Name Value Range Interpretation Description Data Sup porting Code Source(s) Document(s ) Hemoglobin 8.5 % Above high normal [facility] (St A1c/Hemoglobin. [facility] total in Blood [facility], ) ID Date Data Source [id number] 04/16/2019 12:00:00 AM EST [facility] Name Value Range Interpretation Code Description Data Kimberly rce(s) Supporting Document(s ) ID Date Data Source [id number] 04/16/2019 12:00:00 AM EST [facility] Name Value Range Interpretation Code Description Data Kimberly rce(s) Supporting Document(s ) PDF Image . Normal (applies to [facility] (St non-numeric results) [facility], ) ID Date Data Source [id number] 04/16/2019 12:00:00 AM EST [facility] Name Value Range Interpretation Description Data Sup porting Code Source(s) Document(s ) Hemoglobin 8.5 % Above high normal [facility] (St A1c/Hemoglobin. [facility] total in Blood [facility], ) ID Date Data Source [id number] 04/16/2019 12:00:00 AM EST [facility] ID Date Data Source [id number] 04/16/2019 12:00:00 AM EST [facility] Name Value Range Interpretation Code Description Data Kimberly rce(s) Supporting Document(s ) PDF Image . Normal (applies to [facility] (St non-numeric results) [facility]) ID Date Data Source [id number] 04/16/2019 12:00:00 AM EST [facility] Name Value Range Interpretation Description Data Sup porting Code Source(s) Document(s ) Hemoglobin 8.5 % Above high normal [facility] (St A1c/Hemoglobin. [facility] total in Blood [facility], [facility]) ID Date Data Source [id number] 04/16/2019 12:00:00 AM EST [facility] Name Value Range Interpretation Code Description Data Kimberly rce(s) Supporting Document(s ) ID Date Data Source [id number] 04/16/2019 12:00:00 AM EST [facility] Name Value Range Interpretation Code Description Data Kimberly rce(s) Supporting Document(s ) PDF Image . Normal (applies to [facility] (St non-numeric results) [facility]) ID Date Data Source [id number] 04/16/2019 12:00:00 AM EST [facility] Name Value Range Interpretation Description Data Sup porting Code Source(s) Document(s ) Hemoglobin 8.5 % Above high normal [facility] (St A1c/Hemoglobin. [facility] total in Blood [facility], [facility]) ID Date Data Source [id number] 04/16/2019 12:00:00 AM EST [facility] Name Value Range Interpretation Code Description Data Kimberly rce(s) Supporting Document(s ) ID Date Data Source [id number] 04/16/2019 12:00:00 AM EST [facility] Name Value Range Interpretation Code Description Data Kimberly rce(s) Supporting Document(s ) PDF Image . Normal (applies to [facility] (St non-numeric results) [facility]) ID Date Data Source [id number] 04/16/2019 12:00:00 AM EST [facility] Name Value Range Interpretation Description Data Sup porting Code Source(s) Document(s ) Hemoglobin 8.5 % Above high normal [facility] (St A1c/Hemoglobin. [facility] total in Blood [facility], [facility]) ID Date Data Source [id number] 04/16/2019 12:00:00 AM EST [facility] Name Value Range Interpretation Code Description Data Kimberly rce(s) Supporting Document(s ) ID Date Data Source [id number] 04/16/2019 12:00:00 AM EST [facility] Name Value Range Interpretation Description Data Sup porting Code Source(s) Document(s ) Hemoglobin 8.5 % Above high normal [facility] (St A1c/Hemoglobin. [facility] total in Blood Medical, ) ID Date Data Source [id number] 04/16/2019 12:00:00 AM EST [facility] Name Value Range Interpretation Description Data Sup porting Code Source(s) Document(s ) Vitamin D, 8.0 ng/mL Below low normal [facility] (St 25-Hydroxy [facility]) ID Date Data Source [id number] 04/16/2019 12:00:00 AM EST [facility] Name Value Range Interpretation Description Data Sup porting Code Source(s) Document(s ) Folate 13.0 ng/mL Normal (applies to [facility] (St (Folic non-numeric [facility] Acid), results) Medical, ) Serum PDF Image . Normal (applies to [facility] (St non-numeric [facility] results) Medical, ) ID Date Data Source [id number] 04/16/2019 12:00:00 AM EST [facility] Name Value Range Interpretation Description Data Sup porting Code Source(s) Document(s ) Hemoglobin 8.5 % Above high normal [facility] (St A1c/Hemoglobin. [facility], ) ID Date Data Source [id number] 04/16/2019 12:00:00 AM EST [facility] ([facility] Name Value Range Interpretation Code Description Data Kimberly rce(s) Supporting Document(s ) ID Date Data Source [id number] 04/16/2019 12:00:00 AM EST [facility] ([facility] Name Value Range Interpretation Code Description Data Kimberly rce(s) Supporting Document(s ) PDF Image . Normal (applies to [facility] (St non-numeric results) [facility], ) ID Date Data Source [id number] 04/16/2019 12:00:00 AM EST [facility] ([facility] Name Value Range Interpretation Description Data Sup porting Code Source(s) Document(s ) Hemoglobin 8.5 % Above high normal [facility] (St A1c/Hemoglobin. [facility], ) ID Date Data Source [id number] 04/16/2019 12:00:00 AM EST [facility] ([facility] Name Value Range Interpretation Code Description Data Kimberly rce(s) Supporting Document(s ) PDF Image . Normal (applies to [facility] (St non-numeric results) [facility]) ID Date Data Source [id number] 04/16/2019 12:00:00 AM EST [facility] ([facility] Name Value Range Interpretation Description Data Sup porting Code Source(s) Document(s ) Hemoglobin 8.5 % Above high normal [facility] (St A1c/Hemoglobin. [facility]) ID Date Data Source [id number] 04/16/2019 12:00:00 AM EST [facility] ([facility] Name Value Range Interpretation Code Description Data Kimberly rce(s) Supporting Document(s ) ID Date Data Source [id number] 04/16/2019 12:00:00 AM EST [facility] ([facility] Name [...] results) [facility]) ID Date Data Source [id number] 04/16/2019 12:00:00 AM EST [facility] ([facility] ) Blood ID Date Data Source [id number] 02/01/2019 12:00:00 AM EDT [facility] ([facility] [...] for unspecified duration ID Date Data Source [id number] 02/01/2019 12:00:00 AM EDT [facility] ([facility] [...] for unspecified duration ID Date Data Source [id number] 02/01/2019 12:00:00 AM EDT [facility] ([facility] [...] for unspecified duration ID Date Data Source [id number] 02/01/2019 12:00:00 AM EDT [facility] ([facility] [...] for unspecified duration ID Date Data Source [id number] 02/01/2019 12:00:00 AM EDT [facility] ([facility] [...] for unspecified duration ID Date Data Source [id number] 02/01/2019 12:00:00 AM EDT [facility] ([facility] [...] for unspecified duration ID Date Data Source [id number] 02/01/2019 12:00:00 AM EDT [facility] ([facility] [...] for unspecified duration ID Date Data Source [id number] 02/01/2019 12:00:00 AM EDT [facility] ([facility] [...] for unspecified duration ID Date Data Source [id number] 02/01/2019 12:00:00 AM EDT [facility] ([facility] [...] Am mL/min/1. to non-numeric [facility] 73 results) [facility]) BUN/Creatinine 20 Normal (applies [facility] (S t Ratio to non-numeric [facility] results) [facility], ) Sodium 141 Normal (applies [facility] (St [Moles/volume] mmol/L to non-numeric [facility] in Serum or results) [facility]) Plasma Potassium 4.3 Normal (applies [facility] (St [Mass/volume] mmol/L to non-numeric [facility] in Blood results) [facility]) Chloride 103 Normal (applies [facility] (St [Moles/volume] mmol/L to non-numeric [facility] in Serum or results) [facility]) Plasma Calcium 8.9 mg/dL Normal (applies [facility] (St [Moles/volume] to non-numeric [facility] in Urine results) [facility], ) collected for unspecified duration Carbon dioxide, 22 mmol/L Normal (applies [facility] ( St total to non-numeric [facility] [Moles/volume] results) [facility]) in Serum or Plasma ID Date Data Source [id number] 02/01/2019 12:00:00 AM EDT [facility] ([facility] [...] for unspecified duration ID Date Data Source [id number] 02/01/2019 12:00:00 AM EDT [facility] ([facility] [...] to non-numeric [facility] in Serum or results) [facility]) Plasma Potassium 4.3 Normal (applies [facility] (St [...] St total to non-numeric [facility] [Moles/volume] results) [facility]) in Serum or Plasma Calcium 8.9 mg/dL Normal (applies [facility] (St [Moles/volume] to non-numeric [facility] in Urine results) [facility]) collected for unspecified duration ID Date Data Source [id number] 02/01/2019 12:00:00 AM EDT [facility] ([facility] [...] for unspecified duration ID Date Data Source [id number] 02/01/2019 12:00:00 AM EDT [facility] ([facility] [...] for unspecified duration ID Date Data Source [id number] 02/01/2019 12:00:00 AM EDT [facility] ([facility] [...] Am mL/min/1. to non-numeric [facility] 73 results) [facility]) BUN/Creatinine 20 Normal (applies [facility] (S t Ratio to non-numeric [facility] results) [facility]) Potassium 4.3 Normal (applies [facility] (St [Mass/volume] mmol/L to non-numeric [facility] in Blood results) [facility]) Sodium 141 Normal (applies [facility] (St [Moles/volume] mmol/L to non-numeric [facility] in Serum or results) [facility]) Plasma Chloride 103 Normal (applies [facility] (St [Moles/volume] mmol/L to non-numeric [facility] in Serum or results) [facility]) Plasma Carbon dioxide, 22 mmol/L Normal (applies [facility] ( St total to non-numeric [facility] [Moles/volume] results) [facility]) in Serum or Plasma Calcium 8.9 mg/dL Normal (applies [facility] (St [Moles/volume] to non-numeric [facility] in Urine results) [facility]) collected for unspecified duration ID Date Data Source [id number] 12/31/2018 12:00:00 AM EDT [facility] ([facility], ) Name Value Range Interpretation Code Description Data Kimberly rce(s) Supporting Document(s ) ID Date Data Source [id number] 12/31/2018 12:00:00 AM EDT [facility] ([facility], ) Name Value Range Interpretation Code Description Data Kimberly rce(s) Supporting Document(s ) PDF Image . Normal (applies to [facility] (St non-numeric results) [facility], ) ID Date Data Source [id number] 12/31/2018 12:00:00 AM EDT [facility] ([facility], ) Name Value Range Interpretation Description Data Sup porting Code Source(s) Document(s ) Vitamin B12 503 pg/mL Normal (applies to [facility] (S t non-numeric [facility] results) [facility], ) ID Date Data Source [id number] 12/31/2018 12:00:00 AM EDT [facility] ([facility], ) Name Value Range Interpretation Code Description Data Kimberly rce(s) Supporting Document(s ) RPR Non Reactive Normal (applies to [facility] ( St non-numeric [facility] results) [facility], ) ID Date Data Source [id number] 12/31/2018 12:00:00 AM EDT [facility] ([facility], ) Name Value Range Interpretation Code Description Data Kimberly rce(s) Supporting Document(s ) TSH 2.330 Normal (applies to [facility] (St uIU/mL non-numeric results) [facility], ) ID Date Data Source [id number] 12/31/2018 12:00:00 AM EDT [facility] ([facility] for unspecified duration ID Date Data Source [id number] 12/31/2018 12:00:00 AM EDT [facility] ([facility], ) Name Value Range Interpretation Code Description Data Kimberly rce(s) Supporting Document(s ) ID Date Data Source [id number] 12/31/2018 12:00:00 AM EDT [facility] ([facility], ) Name Value Range Interpretation Code Description Data Kimberly rce(s) Supporting Document(s ) PDF Image . Normal (applies to [facility] (St non-numeric results) [facility], ) ID Date Data Source [id number] 12/31/2018 12:00:00 AM EDT [facility] ([facility], ) Name Value Range Interpretation Description Data Sup porting Code Source(s) Document(s ) Vitamin B12 503 pg/mL Normal (applies to [facility] (S t non-numeric [facility] results) [facility], ) ID Date Data Source [id number] 12/31/2018 12:00:00 AM EDT [facility] ([facility], ) Name Value Range Interpretation Code Description Data Kimberly rce(s) Supporting Document(s ) RPR Non Reactive Normal (applies to [facility] ( St non-numeric [facility] results) [facility], ) ID Date Data Source [id number] 12/31/2018 12:00:00 AM EDT [facility] ([facility], ) Name Value Range Interpretation Code Description Data Kimberly rce(s) Supporting Document(s ) TSH 2.330 Normal (applies to [facility] (St uIU/mL non-numeric results) [facility]) ID Date Data Source [id number] 12/31/2018 12:00:00 AM EDT [facility] ([facility] [...] for unspecified duration ID Date Data Source [id number] 12/31/2018 12:00:00 AM EDT [facility] ([facility] ) Name Value Range Interpretation Code Description Data Kimberly rce(s) Supporting Document(s ) ID Date Data Source [id number] 12/31/2018 12:00:00 AM EDT [facility] ([facility] ) Name Value Range Interpretation Code Description Data Kimberly rce(s) Supporting Document(s ) PDF Image . Normal (applies to [facility] (St non-numeric results) [facility], ) ID Date Data Source [id number] 12/31/2018 12:00:00 AM EDT [facility] ([facility], ) Name Value Range Interpretation Description Data Sup porting Code Source(s) Document(s ) Vitamin B12 503 pg/mL Normal (applies to [facility] (S t non-numeric [facility] results) [facility], ) ID Date Data Source [id number] 12/31/2018 12:00:00 AM EDT [facility] ([facility], ) Name Value Range Interpretation Code Description Data Kimberly rce(s) Supporting Document(s ) RPR Non Reactive Normal (applies to [facility] ( St non-numeric [facility] results) [facility], ) ID Date Data Source [id number] 12/31/2018 12:00:00 AM EDT [facility] ([facility], ) Name Value Range Interpretation Code Description Data Kimberly rce(s) Supporting Document(s ) TSH 2.330 Normal (applies to [facility] (St uIU/mL non-numeric results) [facility], ) ID Date Data Source [id number] 12/31/2018 12:00:00 AM EDT [facility] ([facility] [...] (applies [facility] ( St total to non-numeric [facility] [Moles/volume] results) [facility]) in Serum or Plasma Calcium 9.4 mg/dL Normal (applies [facility] (St [Moles/volume] to non-numeric [facility] in Urine results) [facility], ) collected for unspecified duration ID Date Data Source [id number] 12/31/2018 12:00:00 AM EDT [facility] ([facility], ) Name Value Range Interpretation Code Description Data Kimberly rce(s) Supporting Document(s ) PDF Image . Normal (applies to [facility] (St non-numeric results) [facility], ) ID Date Data Source [id number] 12/31/2018 12:00:00 AM EDT [facility] ([facility], ) Name Value Range Interpretation Description Data Sup porting Code Source(s) Document(s ) Vitamin B12 503 pg/mL Normal (applies to [facility] (S t non-numeric [facility] results) [facility], ) ID Date Data Source [id number] 12/31/2018 12:00:00 AM EDT [facility] ([facility], ) Name Value Range Interpretation Code Description Data Kimberly rce(s) Supporting Document(s ) RPR Non Reactive Normal (applies to [facility] ( St non-numeric [facility] results) [facility]) ID Date Data Source [id number] 12/31/2018 12:00:00 AM EDT [facility] ([facility], ) Name Value Range Interpretation Code Description Data Kimberly rce(s) Supporting Document(s ) TSH 2.330 Normal (applies to [facility] (St uIU/mL non-numeric results) [facility], ) ID Date Data Source [id number] 12/31/2018 12:00:00 AM EDT [facility] ([facility], ) Name Value Range Interpretation Code Description Data Kimberly rce(s) Supporting Document(s ) ID Date Data Source [id number] 12/31/2018 12:00:00 AM EDT [facility] ([facility] Name Value Range Interpretation Code Description Data Kimberly rce(s) Supporting Document(s ) PDF Image . Normal (applies to [facility] (St non-numeric results) [facility]) ID Date Data Source [id number] 12/31/2018 12:00:00 AM EDT [facility] ([facility] Name Value Range Interpretation Description Data Sup porting Code Source(s) Document(s ) Vitamin B12 503 pg/mL Normal (applies to [facility] (S t non-numeric [facility] results) [facility], ) ID Date Data Source [id number] 12/31/2018 12:00:00 AM EDT [facility] ([facility] Name Value Range Interpretation Code Description Data Kimberly rce(s) Supporting Document(s ) RPR Non Reactive Normal (applies to [facility] ( St non-numeric [facility] results) [facility], ) ID Date Data Source [id number] 12/31/2018 12:00:00 AM EDT [facility] ([facility] Name Value Range Interpretation Code Description Data Kimberly rce(s) Supporting Document(s ) TSH 2.330 Normal (applies to [facility] (St uIU/mL non-numeric results) [facility]) ID Date Data Source [id number] 12/31/2018 12:00:00 AM EDT [facility] ([facility] [...] for unspecified duration ID Date Data Source [id number] 12/31/2018 12:00:00 AM EDT [facility] ([facility], ) Name Value Range Interpretation Code Description Data Kimberly rce(s) Supporting Document(s ) ID Date Data Source [id number] 12/31/2018 12:00:00 AM EDT [facility] ([facility], ) Name Value Range Interpretation Code Description Data Kimberly rce(s) Supporting Document(s ) PDF Image . Normal (applies to [facility] (St non-numeric results) [facility], ) ID Date Data Source [id number] 12/31/2018 12:00:00 AM EDT [facility] ([facility], ) Name Value Range Interpretation Description Data Sup porting Code Source(s) Document(s ) Vitamin B12 503 pg/mL Normal (applies to [facility] (S t non-numeric [facility] results) [facility], ) ID Date Data Source [id number] 12/31/2018 12:00:00 AM EDT [facility] ([facility], ) Name Value Range Interpretation Code Description Data Kimberly rce(s) Supporting Document(s ) RPR Non Reactive Normal (applies to [facility] ( St non-numeric [facility] results) [facility], ) ID Date Data Source [id number] 12/31/2018 12:00:00 AM EDT [facility] ([facility] ) Name Value Range Interpretation Code Description Data Kimberly rce(s) Supporting Document(s ) TSH 2.330 Normal (applies to [facility] (St uIU/mL non-numeric results) [facility]) ID Date Data Source [id number] 12/31/2018 12:00:00 AM EDT [facility] ([facility] [...] for unspecified duration ID Date Data Source [id number] 12/31/2018 12:00:00 AM EDT [facility] ([facility], ) Name Value Range Interpretation Code Description Data Kimberly rce(s) Supporting Document(s ) ID Date Data Source [id number] 12/31/2018 12:00:00 AM EDT [facility] ([facility], ) Name Value Range Interpretation Code Description Data Kimberly rce(s) Supporting Document(s ) PDF Image . Normal (applies to [facility] (St non-numeric results) [facility], ) ID Date Data Source [id number] 12/31/2018 12:00:00 AM EDT [facility] ([facility], ) Name Value Range Interpretation Description Data Sup porting Code Source(s) Document(s ) Vitamin B12 503 pg/mL Normal (applies to [facility] (S t non-numeric [facility] results) [facility], ) ID Date Data Source [id number] 12/31/2018 12:00:00 AM EDT [facility] ([facility], ) Name Value Range Interpretation Code Description Data Kimberly rce(s) Supporting Document(s ) RPR Non Reactive Normal (applies to MED[facility] ( St non-numeric [facility] results) [facility], ) ID Date Data Source [id number] 12/31/2018 12:00:00 AM EDT [facility] ([facility] [...] low normal MEDGE N (St Am mL/min/1 [facility]'s [address] [place] [address], ) eGFR If Africn Am 36 Below low normal MEDGE N (St mL/min/1 [facility] 73 [facility] [...] results) Medical, ) ID Date Data Source [id number] 12/31/2018 12:00:00 AM EDT [facility] ([facility] [...] for unspecified duration ID Date Data Source [id number] 12/31/2018 12:00:00 AM EDT [facility] ([facility], ) Name Value Range Interpretation Code Description Data Kimberly rce(s) Supporting Document(s ) ID Date Data Source [id number] 12/31/2018 12:00:00 AM EDT [facility] ([facility], ) Name Value Range Interpretation Code Description Data Kimberly rce(s) Supporting Document(s ) PDF Image . Normal (applies to [facility] (St non-numeric results) [facility]) ID Date Data Source [id number] 12/31/2018 12:00:00 AM EDT [facility] ([facility], ) Name Value Range Interpretation Description Data Sup porting Code Source(s) Document(s ) Vitamin B12 503 pg/mL Normal (applies to [facility] (S t non-numeric [facility] results) [facility], ) ID Date Data Source [id number] 12/31/2018 12:00:00 AM EDT [facility] ([facility], ) Name Value Range Interpretation Code Description Data Kimberly rce(s) Supporting Document(s ) RPR Non Reactive Normal (applies to MED[facility] ( St non-numeric [facility] results) [facility], ) ID Date Data Source [id number] 12/31/2018 12:00:00 AM EDT [facility] ([facility], ) Name Value Range Interpretation Code Description Data Kimberly rce(s) Supporting Document(s ) TSH 2.330 Normal (applies to [facility] (St uIU/mL non-numeric results) [facility], ) ID Date Data Source [id number] 12/31/2018 12:00:00 AM EDT [facility] ([facility] [...] for unspecified duration ID Date Data Source [id number] 12/31/2018 12:00:00 AM EDT [facility] ([facility], ) Name Value Range Interpretation Code Description Data Kimberly rce(s) Supporting Document(s ) ID Date Data Source [id number] 12/31/2018 12:00:00 AM EDT [facility] ([facility], ) Name Value Range Interpretation Code Description Data Kimberly rce(s) Supporting Document(s ) PDF Image . Normal (applies to [facility] (St non-numeric results) [facility], ) ID Date Data Source [id number] 12/31/2018 12:00:00 AM EDT [facility] ([facility], ) Name Value Range Interpretation Description Data Sup porting Code Source(s) Document(s ) Vitamin B12 503 pg/mL Normal (applies to [facility] (S t non-numeric [facility] results) [facility], ) ID Date Data Source [id number] 12/31/2018 12:00:00 AM EDT [facility] ([facility], ) Name Value Range Interpretation Code Description Data Kimberly rce(s) Supporting Document(s ) RPR Non Reactive Normal (applies to MED[facility] ( St non-numeric [facility] results) [facility], ) ID Date Data Source [id number] 12/31/2018 12:00:00 AM EDT [facility] ([facility], ) Name Value Range Interpretation Code Description Data Kimberly rce(s) Supporting Document(s ) TSH 2.330 Normal (applies to [facility] (St uIU/mL non-numeric results) [facility], ) ID Date Data Source [id number] 12/31/2018 12:00:00 AM EDT [facility] ([facility] [...] for unspecified duration ID Date Data Source [id number] 12/31/2018 12:00:00 AM EDT [facility] ([facility], ) Name Value Range Interpretation Code Description Data Kimberly rce(s) Supporting Document(s ) ID Date Data Source [id number] 12/31/2018 12:00:00 AM EDT [facility] ([facility], ) Name Value Range Interpretation Code Description Data Kimberly rce(s) Supporting Document(s ) PDF Image . Normal (applies to [facility] (St non-numeric results) [facility]) ID Date Data Source [id number] 12/31/2018 12:00:00 AM EDT [facility] ([facility], ) Name Value Range Interpretation Description Data Sup porting Code Source(s) Document(s ) Vitamin B12 503 pg/mL Normal (applies to [facility]GEN (S t non-numeric [facility] results) [facility], ) ID Date Data Source [id number] 12/31/2018 12:00:00 AM EDT [facility] ([facility], ) Name Value Range Interpretation Code Description Data Kimberly rce(s) Supporting Document(s ) RPR Non Reactive Normal (applies to MED[facility] ( St non-numeric [facility] results) [facility], ) ID Date Data Source [id number] 12/31/2018 12:00:00 AM EDT [facility] ([facility], ) Name Value Range Interpretation Code Description Data Kimberly rce(s) Supporting Document(s ) TSH 2.330 Normal (applies to [facility] (St uIU/mL non-numeric results) [facility], ) ID Date Data Source [id number] 12/31/2018 12:00:00 AM EDT [facility] ( [facility] [...] for unspecified duration ID Date Data Source [id number] 12/31/2018 12:00:00 AM EDT [facility] ([facility], ) Name Value Range Interpretation Code Description Data Kimberly rce(s) Supporting Document(s ) ID Date Data Source [id number] 12/31/2018 12:00:00 AM EDT [facility] ([facility], ) Name Value Range Interpretation Code Description Data Kimberly rce(s) Supporting Document(s ) PDF Image . Normal (applies to MED[facility] (St non-numeric results) [facility], ) ID Date Data Source [id number] 12/31/2018 12:00:00 AM EDT [facility] ([facility], ) Name Value Range Interpretation Description Data Sup porting Code Source(s) Document(s ) Vitamin B12 503 pg/mL Normal (applies to [facility]GEN (S t non-numeric [facility] results) Medical, ) ID Date Data Source [id number] 12/31/2018 12:00:00 AM EDT [facility] ([facility], ) Name Value Range Interpretation Code Description Data Kimberly rce(s) Supporting Document(s ) RPR Non Reactive Normal (applies to MEDGEN ( St non-numeric [facility] results) [facility], ) ID Date Data Source [id number] 12/31/2018 12:00:00 AM EDT [facility] ([facility], ) Name Value Range Interpretation Code Description Data Kimberly rce(s) Supporting Document(s ) TSH 2.330 Normal (applies to [facility] (St uIU/mL non-numeric results) [facility], ) ID Date Data Source [id number] 12/31/2018 12:00:00 AM EDT [facility] ([facility] [...] for unspecified duration ID Date Data Source [id number] 12/31/2018 12:00:00 AM EDT [facility] ([facility], ) Name Value Range Interpretation Code Description Data Kimberly rce(s) Supporting Document(s ) ID Date Data Source [id number] 12/31/2018 12:00:00 AM EDT [facility] ([facility], ) Name Value Range Interpretation Code Description Data Kimberly rce(s) Supporting Document(s ) PDF Image . Normal (applies to MEDGEN (St non-numeric results) [facility]) ID Date Data Source [id number] 12/31/2018 12:00:00 AM EDT [facility] ([facility], ) Name Value Range Interpretation Description Data Sup porting Code Source(s) Document(s ) Vitamin B12 503 pg/mL Normal (applies to MEDGEN (S t non-numeric [facility]ony's results) [facility], ) ID Date Data Source [id number] 12/31/2018 12:00:00 AM EDT MED[facility] ([facility], ) Name Value Range Interpretation Code Description Data Kimberly rce(s) Supporting Document(s ) RPR Non Reactive Normal (applies to MEDGEN ( St non-numeric [facility] results) [facility], ) ID Date Data Source [id number] 12/31/2018 12:00:00 AM EDT [facility] ([facility], ) Name Value Range Interpretation Code Description Data Kimberly rce(s) Supporting Document(s ) TSH 2.330 Normal (applies to MEDGEN (St uIU/mL non-numeric results) [facility]) ID Date Data Source [id number] 12/31/2018 12:00:00 AM EDT MEDGEN ([facility] [...] for unspecified duration ID Date Data Source [id number] 12/31/2018 12:00:00 AM EDT MED[facility] ([facility], ) Name Value Range Interpretation Code Description Data Kimberly rce(s) Supporting Document(s ) RPR Non Reactive Normal (applies to MEDGEN ( St non-numeric [facility] results) [facility], ) ID Date Data Source [id number] 12/31/2018 12:00:00 AM EDT MED[facility] ([facility], ) Name Value Range Interpretation Code Description Data Kimberly rce(s) Supporting Document(s ) TSH 2.330 Normal (applies to MEDGEN (St uIU/mL non-numeric results) [facility], ) ID Date Data Source [id number] 12/31/2018 12:00:00 AM EDT MEDGEN ( [place] [...] 23 Above high normal MEDGEN (St Ratio [facility] [...] for unspecified duration ID Date Data Source [id number] 12/31/2018 12:00:00 AM EDT [facility] ([facility], ) Name Value Range Interpretation Code Description Data Kimberly rce(s) Supporting Document(s ) PDF Image . Normal (applies to MEDGEN (St non-numeric results) [facility]) ID Date Data Source [id number] 12/31/2018 12:00:00 AM EDT [facility] ([facility], ) Name Value Range Interpretation Description Data Sup porting Code Source(s) Document(s ) Vitamin B12 503 pg/mL Normal (applies to MEDGEN (S t non-numeric [facility]'s results) [facility], ) ID Date Data Source [id number] 12/31/2018 12:00:00 AM EDT [facility] ([facility], ) Name Value Range Interpretation Code Description Data Kimberly rce(s) Supporting Document(s ) RPR Non Reactive Normal (applies to MEDGEN ( St non-numeric [facility] results) [facility], ) ID Date Data Source [id number] 12/31/2018 12:00:00 AM EDT MED[facility] ([facility] [...] Am mL/min/1. to non-numeric [facility] 73 results) [facility]) BUN/Creatinine 23 Above high normal MEDGEN (St Ratio [facility], ) Sodium 143 Normal (applies MEDGEN (St [Moles/volume] mmol/L to non-numeric [facility] in Serum or results) [facility]) Plasma Potassium 5.4 Above high normal MEDGEN (St [Mass/volume] mmol/L [facility] in Blood [facility], ) Chloride 106 Normal (applies MEDGEN (St [Moles/volume] mmol/L to non-numeric [facility] in Serum or results) [facility]) Plasma Carbon dioxide, 20 mmol/L Normal (applies MEDGEN ( St total to non-numeric [facility]'s [Moles/volume] results) [facility]) in Serum or Plasma Calcium 9.4 mg/dL Normal (applies MEDGEN (St [Moles/volume] to non-numeric [facility] in Urine results) [facility]) collected for unspecified duration ID Date Data Source [id number] 12/31/2018 12:00:00 AM EDT [facility] ([facility], ) Name Value Range Interpretation Code Description Data Kimberly rce(s) Supporting Document(s ) ID Date Data Source [id number] 12/31/2018 12:00:00 AM EDT [facility] ([facility], ) Name Value Range Interpretation Description Data Sup porting Code Source(s) Document(s ) PDF Image . Normal (applies to MEDGEN (St non-numeric [facility] results) [facility]) PDF Image . Normal (applies to MEDGEN (St non-numeric [facility] results) [facility]) PDF Image . Normal (applies to MEDGEN (St non-numeric [facility] results) [facility]) PDF . Normal (applies to MEDGEN (St non-numeric [facility] results) [facility]) PDF Not applicable Normal (applies to MEDGEN (St non-numeric [facility] results) [facility]) PDF Image . Normal (applies to MEDGEN (St non-numeric [facility] results) [facility]) PDF Image . Normal (applies to MEDGEN [...] [facility], ) ID Date Data Source [id number] 12/31/2018 12:00:00 AM EDT [facility] ([facility], ) Name Value Range Interpretation Description Data Sup porting Code Source(s) Document(s ) Vitamin B12 503 pg/mL Normal (applies to MEDGEN (S t non-numeric [facility]'s results) [facility], ) ID Date Data Source [id number] 12/31/2018 12:00:00 AM EDT [facility] ([facility], ) Name Value Range Interpretation Code Description Data Kimberly rce(s) Supporting Document(s ) RPR Non Reactive Normal (applies to MEDGEN ( St non-numeric [facility] results) [facility], ) ID Date Data Source [id number] 12/31/2018 12:00:00 AM EDT [facility] ([facility], ) Name Value Range Interpretation Code Description Data Kimberly rce(s) Supporting Document(s ) TSH 2.330 Normal (applies to MEDGEN (St uIU/mL non-numeric results) [facility]) ID Date Data Source [id number] 12/31/2018 12:00:00 AM EDT MED[facility] ([facility] [...] for unspecified duration ID Date Data Source [id number] 12/07/2018 12:00:00 AM EDT MED[facility] ([facility], ) Name Value Range Interpretation Code Description Data Kimberly rce(s) Supporting Document(s ) ID Date Data Source [id number] 12/07/2018 12:00:00 AM EDT [facility] ([facility], ) Name Value Range Interpretation Code Description Data Kimberly rce(s) Supporting Document(s ) PDF Image . Normal (applies to MEDGEN (St non-numeric results) [facility]) ID Date Data Source [id number] 12/07/2018 12:00:00 AM EDT [facility] ([facility], ) Name Value Range Interpretation Description Data Sup porting Code Source(s) Document(s ) Hemoglobin 7.0 % Above high normal MEDGEN (St A1c/Hemoglobin. [facility] total in Blood [facility], ) ID Date Data Source [id number] 12/07/2018 12:00:00 AM EDT MED[facility] ([facility] [...] results) Medical, ) ID Date Data Source [id number] 12/07/2018 12:00:00 AM EDT [facility] ([facility] Serum or Plasma ID Date Data Source [id number] 12/07/2018 12:00:00 AM EDT [facility] ([facility] Name Value Range Interpretation Code Description Data Kimberly rce(s) Supporting Document(s ) ID Date Data Source [id number] 12/07/2018 12:00:00 AM EDT [facility] ([facility] Name Value Range Interpretation Code Description Data Kimberly rce(s) Supporting Document(s ) PDF Image . Normal (applies to MEDGEN (St non-numeric results) [facility] Me dical, ) ID Date Data Source [id number] 12/07/2018 12:00:00 AM EDT [facility] ([facility]) Name Value Range Interpretation Description Data Sup porting Code Source(s) Document(s ) Hemoglobin 7.0 % Above high normal MEDGEN (St A1c/Hemoglobin. [facility] total in Blood Medical, ) ID Date Data Source [id number] 12/07/2018 12:00:00 AM EDT [facility] ([facility] [...] results) [facility]) ID Date Data Source [id number] 12/07/2018 12:00:00 AM EDT MED[facility] ([facility], ) Name Value Range Interpretation Description [...] Serum or Plasma ID Date Data Source [id number] 12/07/2018 12:00:00 AM EDT [facility] ([facility], ) Name Value Range Interpretation Code Description Data Kimberly rce(s) Supporting Document(s ) ID Date Data Source [id number] 12/07/2018 12:00:00 AM EDT [facility] ([facility] Name Value Range Interpretation Code Description Data Kimberly rce(s) Supporting Document(s ) PDF Image . Normal (applies to MEDGEN (St non-numeric results) [facility], ) ID Date Data Source [id number] 12/07/2018 12:00:00 AM EDT [facility] ([facility], ) Name Value Range Interpretation Description Data Sup porting Code Source(s) Document(s ) Hemoglobin 7.0 % Above high normal MEDGEN (St A1c/Hemoglobin. [facility] total in Blood [facility], ) ID Date Data Source [id number] 12/07/2018 12:00:00 AM EDT MEDGEN ([facility], ) Name Value Range Interpretation Description [...] [facility], ) ID Date Data Source [id number] 12/07/2018 12:00:00 AM EDT MEDGEN ([facility], ) Name Value Range Interpretation Description [...] Serum or Plasma ID Date Data Source [id number] 12/07/2018 12:00:00 AM EDT [facility] ([facility], ) Name Value Range Interpretation Code Description Data Kimberly rce(s) Supporting Document(s ) ID Date Data Source [id number] 12/07/2018 12:00:00 AM EDT [facility] ([facility], ) Name Value Range Interpretation Code Description Data Kimberly rce(s) Supporting Document(s ) PDF Image . Normal (applies to MEDGEN (St non-numeric results) [facility]) ID Date Data Source [id number] 12/07/2018 12:00:00 AM EDT MED[facility] ([facility], ) Name Value Range Interpretation Description Data Sup porting Code Source(s) Document(s ) Hemoglobin 7.0 % Above high normal MEDGEN (St A1c/Hemoglobin. [facility] total in Blood [facility], ) ID Date Data Source [id number] 12/07/2018 12:00:00 AM EDT [facility] ([facility] [...] [facility], ) ID Date Data Source [id number] 12/07/2018 12:00:00 AM EDT MEDGEN ([facility] [...] Serum or Plasma ID Date Data Source [id number] 12/07/2018 12:00:00 AM EDT [facility] ([facility], ) Name Value Range Interpretation Code Description Data Kimberly rce(s) Supporting Document(s ) ID Date Data Source [id number] 12/07/2018 12:00:00 AM EDT MED[facility] ([facility], ) Name Value Range Interpretation Code Description Data Kimberly rce(s) Supporting Document(s ) PDF Image . Normal (applies to MEDGEN (St non-numeric results) [facility] Me dical, ) ID Date Data Source [id number] 12/07/2018 12:00:00 AM EDT MED[facility] ([facility], ) Name Value Range Interpretation Description Data Sup porting Code Source(s) Document(s ) Hemoglobin 7.0 % Above high normal MEDGEN (St A1c/Hemoglobin. [facility] total in Blood [facility]) ID Date Data Source [id number] 12/07/2018 12:00:00 AM EDT MED[facility] ([facility] [...] Cholesterol 17 mg/dL Normal (applies MEDGEN (St [place] to non-numeric [facility] results) [facility]) HDL Cholesterol 86 mg/dL Normal (applies MEDGEN ( St to non-numeric [facility] results) [facility]) LDL Cholesterol 78 mg/dL Normal (applies MEDGEN ( St Calc to non-numeric [facility] results) [facility]) ID Date Data Source [id number] 12/07/2018 12:00:00 AM EDT MEDGEN ([facility] [...] Serum or Plasma ID Date Data Source [id number] 12/07/2018 12:00:00 AM EDT [facility] ([facility], ) Name Value Range Interpretation Code Description Data Kimberly rce(s) Supporting Document(s ) ID Date Data Source [id number] 12/07/2018 12:00:00 AM EDT MEDGEN ([facility], ) Name Value Range Interpretation Code Description Data Kimberly rce(s) Supporting Document(s ) PDF Image . Normal (applies to MEDGEN (St non-numeric results) [facility] Me dical, ) ID Date Data Source [id number] 12/07/2018 12:00:00 AM EDT MEDGEN ([facility], ) Name Value Range Interpretation Description Data Sup porting Code Source(s) Document(s ) Hemoglobin 7.0 % Above high normal MEDGEN (St A1c/Hemoglobin. [facility] total in Blood Medical, ) ID Date Data Source [id number] 12/07/2018 12:00:00 AM EDT MEDGEN ([facility] [...] results) Medical, ) ID Date Data Source [id number] 12/07/2018 12:00:00 AM EDT MEDGEN ([facility] [...] 23 Above high MEDGEN (St Ratio normal [facility], ) Sodium 144 Normal (applies MEDGEN [...] Serum or Plasma ID Date Data Source [id number] 12/07/2018 12:00:00 AM EDT [facility] ([facility], ) Name Value Range Interpretation Code Description Data Supporting Source(s) Document(s ) Sodium, 81 mmol/L Normal (applies to MEDGEN (St Urine non-numeric [facility] results) [facility], ) ID Date Data Source [id number] 12/07/2018 12:00:00 AM EDT MED[facility] ([facility], ) Name Value Range Interpretation Code Description Data Kimberly rce(s) Supporting Document(s ) PDF Image . Normal (applies to MEDGEN (St non-numeric results) [facility]) ID Date Data Source [id number] 12/07/2018 12:00:00 AM EDT MEDGEN ([facility], ) Name Value Range Interpretation Description Data Sup porting Code Source(s) Document(s ) Hemoglobin 7.0 % Above high normal MEDGEN (St A1c/Hemoglobin. [facility] total in Blood [facility], ) ID Date Data Source [id number] 12/07/2018 12:00:00 AM EDT MEDGEN ([facility] [...] results) [facility]) ID Date Data Source [id number] 12/07/2018 12:00:00 AM EDT [facility] ([facility] Serum or Plasma ID Date Data Source [id number] 12/07/2018 12:00:00 AM EDT [facility] ([facility]) Name Value Range Interpretation Code Description Data Kimberly rce(s) Supporting Document(s ) ID Date Data Source [id number] 12/07/2018 12:00:00 AM EDT [facility] ([facility]) Name Value Range Interpretation Code Description Data Kimberly rce(s) Supporting Document(s ) PDF Image . Normal (applies to MEDGEN (St non-numeric results) [facility]) ID Date Data Source [id number] 12/07/2018 12:00:00 AM EDT [facility] ([facility]) Name Value Range Interpretation Description Data Sup porting Code Source(s) Document(s ) Hemoglobin 7.0 % Above high normal MEDGEN (St A1c/Hemoglobin. [facility] total in Blood [facility]) ID Date Data Source [id number] 12/07/2018 12:00:00 AM EDT MED[facility] ([facility] [...] results) [facility]) ID Date Data Source [id number] 12/07/2018 12:00:00 AM EDT MEDGEN ([facility] [...] Serum or Plasma ID Date Data Source [id number] 12/07/2018 12:00:00 AM EDT [facility] ([facility]) Name Value Range Interpretation Code Description Data Kimberly rce(s) Supporting Document(s ) ID Date Data Source [id number] 12/07/2018 12:00:00 AM EDT [facility] ([facility]) Name Value Range Interpretation Code Description Data Kimberly rce(s) Supporting Document(s ) PDF Image . Normal (applies to MEDGEN (St non-numeric results) [facility], [facility]) ID Date Data Source [id number] 12/07/2018 12:00:00 AM EDT [facility] ([facility]) Name Value Range Interpretation Description Data Sup porting Code Source(s) Document(s ) Hemoglobin 7.0 % Above high normal MEDGEN (St A1c/Hemoglobin. [facility] total in Blood [facility], ) ID Date Data Source [id number] 12/07/2018 12:00:00 AM EDT MED[facility] ([facility]) Name Value Range Interpretation Description Data Sup [...] results) [facility]) ID Date Data Source [id number] 12/07/2018 12:00:00 AM EDT MEDGEN ([facility], ) Name Value Range Interpretation Description [...] 23 Above high MEDGEN (St Ratio normal [facility], ) eGFR If Africn Am 73 Normal (applies MEDGEN (St mL/min/1 to non-numeric [facility] .73 results) [facility]) Sodium 144 Normal [...] Serum or Plasma ID Date Data Source [id number] 12/07/2018 12:00:00 AM EDT [facility] ([facility], ) Name Value Range Interpretation Code Description Data Kimberly rce(s) Supporting Document(s ) ID Date Data Source [id number] 12/07/2018 12:00:00 AM EDT [facility] ([facility], ) Name Value Range Interpretation Code Description Data Kimberly rce(s) Supporting Document(s ) PDF Image . Normal (applies to MEDGEN (St non-numeric results) [facility], ) ID Date Data Source [id number] 12/07/2018 12:00:00 AM EDT MED[facility] ([facility], ) Name Value Range Interpretation Description Data Sup porting Code Source(s) Document(s ) Hemoglobin 7.0 % Above high normal MEDGEN (St A1c/Hemoglobin. [facility] total in Blood Medical, ) ID Date Data Source [id number] 12/07/2018 12:00:00 AM EDT MEDGEN ([facility]) ID Date Data Source [id number] 12/07/2018 12:00:00 AM EDT MEDGEN ([facility] [...] Serum or Plasma ID Date Data Source [id number] 12/07/2018 12:00:00 AM EDT MED[facility] ([facility], ) Name Value Range Interpretation Description Data Sup porting Code Source(s) Document(s ) Hemoglobin 11.6 % Above high normal MEDGEN (St A1c/Hemoglobin [facility] .total in Medical, ) Blood ID Date Data Source [id number] 12/07/2018 12:00:00 AM EDT [facility] ([facility], ) Name Value Range Interpretation Code Description Data Kimberly rce(s) Supporting Document(s ) PDF Image . Normal (applies to MEDGEN (St non-numeric results) [facility] Nv [facility]ical, ) ID Date Data Source [id number] 12/07/2018 12:00:00 AM EDT MEDGEN ( [facility] [...] [facility], ) ID Date Data Source [id number] 12/07/2018 12:00:00 AM EDT MED[facility] ([facility] [...] results) Medical, ) ID Date Data Source [id number] 12/07/2018 12:00:00 AM EDT MEDGEN ([facility] [...] Serum or Plasma ID Date Data Source [id number] 12/07/2018 12:00:00 AM EDT [facility] ([facility], ) Name Value Range Interpretation Code Description Data Kimberly rce(s) Supporting Document(s ) ID Date Data Source [id number] 12/07/2018 12:00:00 AM EDT [facility] ([facility], ) Name Value Range Interpretation Code Description Data Kimberly rce(s) Supporting Document(s ) PDF Image . Normal (applies to MEDGEN (St non-numeric results) [facility] Me [facility], ) ID Date Data Source [id number] 12/07/2018 12:00:00 AM EDT [facility] ([facility], ) Name Value Range Interpretation Description Data Sup porting Code Source(s) Document(s ) Hemoglobin 7.0 % Above high normal MEDGEN (St A1c/Hemoglobin. [facility] total in Blood Medical, ) ID Date Data Source [id number] 12/07/2018 12:00:00 AM EDT MED[facility] ([facility] [...] results) Medical, ) ID Date Data Source [id number] 12/07/2018 12:00:00 AM EDT MEDGEN ([facility] [...] Serum or Plasma ID Date Data Source [id number] 12/07/2018 12:00:00 AM EDT [facility] ([facility], ) Name Value Range Interpretation Code Description Data Kimberly rce(s) Supporting Document(s ) ID Date Data Source [id number] 12/07/2018 12:00:00 AM EDT MED[facility] ([facility] [...] results) Medical, ) ID Date Data Source [id number] 12/07/2018 12:00:00 AM EDT MED[facility] ([facility] [...] Medical, ) Blood ID Date Data Source [id number] 12/07/2018 12:00:00 AM EDT MED[facility] ([facility] [...] results) Medical, ) ID Date Data Source [id number] 12/07/2018 12:00:00 AM EDT [facility] ([facility], ) Name Value Range Interpretation Description Data Sup porting Code Source(s) Document(s ) Glucose 88 mg/dL Normal (applies MEDGEN (St [Mass/volume] in to non-numeric [facility] Urine collected for results) Medical, unspecified PC) duration Creatinine 1.28 Above high MEDGEN (St [Interpretation] in mg/dL normal [facility] Urine Medical, ) Urea nitrogen 30 mg/dL [...] Serum or Plasma ID Date Data Source [id number] 12/07/2018 12:00:00 AM EDT [facility] ([facility]) Name Value Range Interpretation Code Description Data Kimberly rce(s) Supporting Document(s ) ID Date Data Source [id number] 12/07/2018 12:00:00 AM EDT [facility] ([facility]) Name Value Range Interpretation Code Description Data Kimberly rce(s) Supporting Document(s ) PDF Image . Normal (applies to MEDGEN (St non-numeric results) [facility] Me dical, ) ID Date Data Source [id number] 12/07/2018 12:00:00 AM EDT [facility] ([facility], ) Name Value Range Interpretation Description Data Sup porting Code Source(s) Document(s ) Hemoglobin 7.0 % Above high normal MEDGEN (St A1c/Hemoglobin. [facility] total in Blood [facility], ) ID Date Data Source [id number] 12/07/2018 12:00:00 AM EDT MEDGEN ([facility], ) Name Value Range Interpretation Description [...] [facility], ) ID Date Data Source [id number] 12/07/2018 12:00:00 AM EDT MEDGEN ([facility], ) Name Value Range Interpretation Description [...] Serum or Plasma ID Date Data Source [id number] 12/07/2018 12:00:00 AM EDT [facility] ([facility], ) Name Value Range Interpretation Code Description Data Kimberly rce(s) Supporting Document(s ) PDF Image . Normal (applies to MEDGEN (St non-numeric results) [facility], ) ID Date Data Source [id number] 12/07/2018 12:00:00 AM EDT MEDGEN ([facility] [...] results) Medical, ) ID Date Data Source [id number] 08/17/2018 12:00:00 AM EDT [facility] ([facility], ) Name Value Range Interpretation Code Description Data Kimberly rce(s) Supporting Document(s ) ID Date Data Source [id number] 08/17/2018 12:00:00 AM EDT [facility] ([facility] Name Value Range Interpretation Description Data Sup porting Code Source(s) Document(s ) Request Test not Normal (applies to MEDGEN (St Problem performed non-numeric [facility] . results) Medical, ) ID Date Data Source [id number] 08/17/2018 12:00:00 AM EDT [facility] ([facility], ) Name Value Range Interpretation Description Data Sup porting Code Source(s) Document(s ) No Urine Test not Normal (applies to MEDGEN (St Received performed non-numeric [facility] . results) Medical, ) ID Date Data Source [id number] 08/17/2018 12:00:00 AM EDT [facility] ([facility] Name Value Range Interpretation Code Description Data Kimberly rce(s) Supporting Document(s ) Ambig Abbrev Normal (applies to MEDGEN ( St CMP14 non-numeric [facility] Default results) Medical, ) ID Date Data Source [id number] 08/17/2018 12:00:00 AM EDT [facility] ([facility], ) Name Value Range Interpretation Description Data Sup porting Code Source(s) Document(s ) Hemoglobin 9.0 % Above high normal MEDGEN (St A1c/Hemoglobin. [facility] total in Blood [facility], ) ID Date Data Source [id number] 08/17/2018 12:00:00 AM EDT [facility] ([facility], ) Name Value Range Interpretation Code Description Data Kimberly rce(s) Supporting Document(s ) PDF Image . Normal (applies to [facility] (St non-numeric results) [facility] ID Date Data Source [id number] 08/17/2018 12:00:00 AM EDT [facility] ([facility] [...] Normal (applies MED[facility] (St Vasile to non-numeric Dnoy's results) [facility], ) LDL Cholesterol 112 Above high normal MEDGEN (St Calc mg/dL [facility], ) ID Date Data Source [id number] 08/17/2018 12:00:00 AM EDT [facility] ([facility], ) ID Date Data Source [id number] 08/17/2018 12:00:00 AM EDT [facility] ([facility] Name Value Range Interpretation Code Description Data Kimberly rce(s) Supporting Document(s ) ID Date Data Source [id number] 08/17/2018 12:00:00 AM EDT [facility] ([facility] Name Value Range Interpretation Description Data Sup porting Code Source(s) Document(s ) Request Test not Normal (applies to MED[facility] (St Problem performed non-numeric [facility] . results) [facility]) ID Date Data Source [id number] 08/17/2018 12:00:00 AM EDT [facility] ([facility] Name Value Range Interpretation Description Data Sup porting Code Source(s) Document(s ) No Urine Test not Normal (applies to MED[facility] (St Received performed non-numeric [facility] . results) [facility]) ID Date Data Source [id number] 08/17/2018 12:00:00 AM EDT [facility] ([facility] Name Value Range Interpretation Code Description Data Kimberly rce(s) Supporting Document(s ) Ambig Abbrev Normal (applies to MEDGEN ( St CMP14 non-numeric [facility] Default results) [facility]) ID Date Data Source [id number] 08/17/2018 12:00:00 AM EDT [facility] ([facility] Name Value Range Interpretation Description Data Sup porting Code Source(s) Document(s ) Hemoglobin 9.0 % Above high normal [facility] (St A1c/Hemoglobin. [facility] total in Blood [facility]) ID Date Data Source [id number] 08/17/2018 12:00:00 AM EDT [facility] ([facility] Name Value Range Interpretation Code Description Data Kimberly rce(s) Supporting Document(s ) PDF Image . Normal (applies to [facility] (St non-numeric results) [facility]) ID Date Data Source [id number] 08/17/2018 12:00:00 AM EDT [facility] ([facility], ) ID Date Data Source [id number] 08/17/2018 12:00:00 AM EDT [facility] ([facility], ) ID Date Data Source [id number] 08/17/2018 12:00:00 AM EDT [facility] ([facility] Name Value Range Interpretation Code Description Data Kimberly rce(s) Supporting Document(s ) ID Date Data Source [id number] 08/17/2018 12:00:00 AM EDT [facility] ([facility] Name Value Range Interpretation Description Data Sup porting Code Source(s) Document(s ) Request Test not Normal (applies to MED[facility] (St Problem performed non-numeric [facility] . results) [facility], ) ID Date Data Source [id number] 08/17/2018 12:00:00 AM EDT [facility] ([facility] Name Value Range Interpretation Description Data Sup porting Code Source(s) Document(s ) No Urine Test not Normal (applies to MED[facility] (St Received performed non-numeric [facility] . results) [facility], ) ID Date Data Source [id number] 08/17/2018 12:00:00 AM EDT MED[facility] ([facility], ) Name Value Range Interpretation Code Description Data Kimberly rce(s) Supporting Document(s ) Francisco Corrales Normal (applies to MEDGEN ( St CMP14 non-numeric [facility] Default results) [facility], ) ID Date Data Source [id number] 08/17/2018 12:00:00 AM EDT MED[facility] ([facility], ) Name Value Range Interpretation Description Data Sup porting Code Source(s) Document(s ) Hemoglobin 9.0 % Above high normal MED[facility] (St A1c/Hemoglobin. [facility] total in Blood [facility], ) ID Date Data Source [id number] 08/17/2018 12:00:00 AM EDT [facility] ([facility], ) Name Value Range Interpretation Code Description Data Kimberly rce(s) Supporting Document(s ) PDF Image . Normal (applies to MEDGEN (St non-numeric results) [facility]) ID Date Data Source [id number] 08/17/2018 12:00:00 AM EDT [facility] ([facility] Above high normal MEDGEN (St Calc mg/dL [facility], ) ID Date Data Source [id number] 08/17/2018 12:00:00 AM EDT [facility] ([facility] [...] (applies [facility] (St to non-numeric [facility]ony's results) [facility]) RDW 13.6 % Normal (applies MEDGEN (St [...] (St (Absolute) x10E3/uL to non-numeric [facility]'s results) [facility]) Monocytes(Absolu 0.4 Normal (applies MED[facility] (St te) [...] results) Medical, ) ID Date Data Source [id number] 08/17/2018 12:00:00 AM EDT [facility] ([facility] Name Value Range Interpretation Code Description Data Kimberly rce(s) Supporting Document(s ) ID Date Data Source [id number] 08/17/2018 12:00:00 AM EDT [facility] ([facility] Name Value Range Interpretation Description Data Sup porting Code Source(s) Document(s ) Request Test not Normal (applies to MEDGEN (St Problem performed non-numeric [facility] . results) Medical, ) ID Date Data Source [id number] 08/17/2018 12:00:00 AM EDT [facility] ([facility] Name Value Range Interpretation Description Data Sup porting Code Source(s) Document(s ) No Urine Test not Normal (applies to MEDGEN (St Received performed non-numeric [facility] . results) Medical, ) ID Date Data Source [id number] 08/17/2018 12:00:00 AM EDT [facility] ([facility] Name Value Range Interpretation Code Description Data Kimberly rce(s) Supporting Document(s ) Francisco Corrales Normal (applies to MEDGEN ( St CMP14 non-numeric [facility] Default results) Medical, ) ID Date Data Source [id number] 08/17/2018 12:00:00 AM EDT [facility] ([facility] Name Value Range Interpretation Description Data Sup porting Code Source(s) Document(s ) Hemoglobin 9.0 % Above high normal [facility] (St A1c/Hemoglobin. [facility] total in Blood Medical, ) ID Date Data Source [id number] 08/17/2018 12:00:00 AM EDT [facility] ([facility] Name Value Range Interpretation Code Description Data Kimberly rce(s) Supporting Document(s ) PDF Image . Normal (applies to MED[facility] (St non-numeric results) [facility]) ID Date Data Source [id number] 08/17/2018 12:00:00 AM EDT MED[facility] ( [facility] [...] to non-numeric [facility] Serum or Plasma results) [facility]) HDL Cholesterol 89 mg/dL Normal (applies MEDGEN ( St to non-numeric [facility]ony's results) [facility]) LDL Cholesterol 112 Above high normal MEDGEN (St Calc mg/dL [facility], ) VLDL Cholesterol 24 mg/dL Normal (applies MED[facility] (St Vasile to non-numeric Dony's results) [facility], ) ID Date Data Source [id number] 08/17/2018 12:00:00 AM EDT MED[facility] ( [facility] [...] (St (Absolute) x10E3/uL to non-numeric Dony's results) [facility]) Monocytes(Absolu 0.4 Normal (applies MEDGEN (St te) [...] MEDGEN (St Granulocytes to non-numeric Dony's results) [facility]) Immature Grans 0.0 Normal (applies MEDGEN (S t (Abs) x10E3/uL to non-numeric Dony's results) [facility], ) ID Date Data Source [id number] 08/17/2018 12:00:00 AM EDT [facility] ([facility], ) Name Value Range Interpretation Code Description Data Kimberly rce(s) Supporting Document(s ) ID Date Data Source [id number] 08/17/2018 12:00:00 AM EDT [facility] ([facility], ) Name Value Range Interpretation Description Data Sup porting Code Source(s) Document(s ) Request Test not Normal (applies to MEDGEN (St Problem performed non-numeric [facility] . results) [facility], ) ID Date Data Source [id number] 08/17/2018 12:00:00 AM EDT [facility] ([facility], ) Name Value Range Interpretation Description Data Sup porting Code Source(s) Document(s ) No Urine Test not Normal (applies to MEDGEN (St Received performed non-numeric [facility] . results) Medical, ) ID Date Data Source [id number] 08/17/2018 12:00:00 AM EDT [facility] ([facility], ) Name Value Range Interpretation Code Description Data Kimberly rce(s) Supporting Document(s ) Francisco Quirozv Normal (applies to MEDGEN ( St CMP14 non-numeric Dony's Default results) [facility], ) ID Date Data Source [id number] 08/17/2018 12:00:00 AM EDT [facility] ([facility], ) Name Value Range Interpretation Description Data Sup porting Code Source(s) Document(s ) Hemoglobin 9.0 % Above high normal MED[facility] (St A1c/Hemoglobin. [facility] total in Blood [facility], ) ID Date Data Source [id number] 08/17/2018 12:00:00 AM EDT [facility] ([facility], ) Name Value Range Interpretation Code Description Data Kimberly rce(s) Supporting Document(s ) PDF Image . Normal (applies to MEDGEN (St non-numeric results) [facility] Me [facility]) ID Date Data Source [id number] 08/17/2018 12:00:00 AM EDT [facility] ([facility] [...] Above high normal MEDGEN (St Calc mg/dL [facility], ) ID Date Data Source [id number] 08/17/2018 12:00:00 AM EDT [facility] ([facility] [...] results) Medical, ) ID Date Data Source [id number] 08/17/2018 12:00:00 AM EDT [facility] ([facility], ) Name Value Range Interpretation Code Description Data Kimberly rce(s) Supporting Document(s ) ID Date Data Source [id number] 08/17/2018 12:00:00 AM EDT [facility] ([facility], ) ID Date Data Source [id number] 08/17/2018 12:00:00 AM EDT [facility] ([facility], ) Name Value Range Interpretation Code Description Data Kimberly rce(s) Supporting Document(s ) Ambig Abbrev Normal (applies to MEDGEN ( St CMP14 non-numeric [facility] Default results) Medical, ) ID Date Data Source [id number] 08/17/2018 12:00:00 AM EDT [facility] ([facility], ) Name Value Range Interpretation Description Data Sup porting Code Source(s) Document(s ) Hemoglobin 9.0 % Above high normal MEDGEN (St A1c/Hemoglobin. [facility] total in Blood [facility], ) ID Date Data Source [id number] 08/17/2018 12:00:00 AM EDT [facility] ([facility], ) Name Value Range Interpretation Code Description Data Kimberly rce(s) Supporting Document(s ) PDF Image . Normal (applies to MEDGEN (St non-numeric results) [facility]) ID Date Data Source [id number] 08/17/2018 12:00:00 AM EDT MED[facility] ([facility] [...] Above high normal MEDGEN (St Calc mg/dL [facility], ) ID Date Data Source [id number] 08/17/2018 12:00:00 AM EDT MED[facility] ([facility] [...] low normal MEDGEN (St [Mass/volume] in g/dL [facility] Blood [facility]) Hematocrit 35.3 % Below low normal MEDGEN [...] results) Medical, ) ID Date Data Source [id number] 08/17/2018 12:00:00 AM EDT [facility] ([facility] Name Value Range Interpretation Code Description Data Kimberly rce(s) Supporting Document(s ) ID Date Data Source [id number] 08/17/2018 12:00:00 AM EDT [facility] ([facility] Name Value Range Interpretation Description Data Sup porting Code Source(s) Document(s ) Request Test not Normal (applies to MEDGEN (St Problem performed non-numeric [facility] . results) Medical, ) ID Date Data Source [id number] 08/17/2018 12:00:00 AM EDT [facility] ([facility]) Name Value Range Interpretation Description Data Sup porting Code Source(s) Document(s ) No Urine Test not Normal (applies to MEDGEN (St Received performed non-numeric [facility]'s . results) Medical, ) ID Date Data Source [id number] 08/17/2018 12:00:00 AM EDT [facility] ([facility] Name Value Range Interpretation Code Description Data Kimberly rce(s) Supporting Document(s ) Ambig Abbrev Normal (applies to MEDGEN ( St CMP14 non-numeric [facility] Default results) Medical, ) ID Date Data Source [id number] 08/17/2018 12:00:00 AM EDT [facility] ([facility]) Name Value Range Interpretation Description Data Sup porting Code Source(s) Document(s ) Hemoglobin 9.0 % Above high normal MEDGEN (St A1c/Hemoglobin. [facility] total in Blood Medical, ) ID Date Data Source [id number] 08/17/2018 12:00:00 AM EDT [facility] ([facility] Name Value Range Interpretation Code Description Data Kimberly rce(s) Supporting Document(s ) PDF Image . Normal (applies to MEDGEN (St non-numeric results) [facility] dical, ) ID Date Data Source [id number] 08/17/2018 12:00:00 AM EDT [facility] ([facility] ) ID Date Data Source [id number] 08/17/2018 12:00:00 AM EDT [facility] ([facility] [...] (applies MEDGEN (St to non-numeric Dony's results) [facility]) Monocytes 5 % Normal (applies MEDGEN (St [#/volume] in to non-numeric Dony's Cord blood results) [facility]) Basos 0 % Normal (applies MEDGEN (St to non-numeric Dony's results) [facility]) Eos 3 % Normal (applies MEDGEN (St to non-numeric Dony's results) [facility]) Neutrophils 5.8 Normal (applies MEDGEN (St (Absolute) x10E3/uL to non-numeric Dony's results) [facility]) Lymphs 1.3 Normal (applies MEDGEN (St (Absolute) x10E3/uL to non-numeric Dony's results) [facility]) Monocytes(Absolu 0.4 Normal (applies MEDGEN (St te) x10E3/uL to non-numeric Dony's results) [facility]) Eos (Absolute) 0.2 Normal (applies MEDGEN (S t x10E3/uL to non-numeric Dony's results) [facility]) Baso (Absolute) 0.0 Normal (applies MEDGEN ( St x10E3/uL to non-numeric Dony's results) [facility]) Immature Grans 0.0 Normal (applies MEDGEN (S t (Abs) x10E3/uL to non-numeric Dony's results) [facility]) Immature 0 % Normal (applies MEDGEN (St Granulocytes to non-numeric Dony's results) [facility]) ID Date Data Source [id number] 08/17/2018 12:00:00 AM EDT [facility] ([facility], ) Name Value Range Interpretation Description Data Sup porting Code Source(s) Document(s ) No Urine Test not Normal (applies to MEDGEN (St Received performed non-numeric Dony's . results) [facility]) ID Date Data Source [id number] 08/17/2018 12:00:00 AM EDT MED[facility] ([facility] [...] low normal MEDGEN (St NonAfricn Am mL/min/1. [address]) BUN/Creatinine 21 Above high normal MEDGEN (St Ratio [facility], ) eGFR If Africn 45 Below low normal MEDGEN ( St Am mL/min/1. [address], ) Sodium 141 Normal (applies MEDGEN (St [Moles/volume] mmol/L to non-numeric Dony's in Serum or results) [facility]) Plasma Potassium 5.5 Above high normal MEDGEN (St [Mass/volume] mmol/L Dony's in Blood [facility]) Chloride 105 Normal (applies MEDGEN (St [Moles/volume] mmol/L to non-numeric Dony's in Serum or results) [facility]) Plasma Carbon dioxide, 21 mmol/L Normal (applies MEDGEN ( St total to non-numeric Dony's [Moles/volume] results) [facility]) in Serum or Plasma Calcium 9.3 mg/dL Normal (applies MEDGEN (St [Moles/volume] to non-numeric Dony's in Urine results) [facility]) collected for unspecified duration Ambig Gabriellav Normal (applies MEDGEN (St CMP14 Default to non-numeric Dony's results) [facility]) ID Date Data Source [id number] 08/17/2018 12:00:00 AM EDT [facility] ([facility], ) Name Value Range Interpretation Code Description Data Kimberly rce(s) Supporting Document(s ) PDF Image . Normal (applies to MEDGEN (St non-numeric results) [facility]) ID Date Data Source [id number] 08/17/2018 12:00:00 AM EDT [facility] ([facility], ) Name Value Range Interpretation Description Data Sup porting Code Source(s) Document(s ) Leukocytes 7.7 Normal (applies MEDGEN (St [#/volume] in x10E3/uL to non-numeric Dony's Blood by results) [facility]) Automated count Erythrocytes 4.16 Normal (applies MEDGEN (St [#/volume] in x10E6/uL to non-numeric Dony's Blood by results) [facility]) Automated count Hemoglobin 11.6 Below low normal [...] results) Medical, ) ID Date Data Source [id number] 08/17/2018 12:00:00 AM EDT [facility] ([facility], ) Name Value Range Interpretation Description Data Sup porting Code Source(s) Document(s ) Request Test not Normal (applies to MEDGEN (St Problem performed non-numeric Dony's . results) Medical, ) ID Date Data Source [id number] 08/17/2018 12:00:00 AM EDT [facility] ([facility], ) Name Value Range Interpretation Description Data Sup porting Code Source(s) Document(s ) No Urine Test not Normal (applies to MEDGEN (St Received performed non-numeric Dony's . results) Medical, ) ID Date Data Source [id number] 08/17/2018 12:00:00 AM EDT MED[facility] ([facility], ) Name Value Range Interpretation Code Description Data Kimberly rce(s) Supporting Document(s ) PDF Image . Normal (applies to MEDGEN (St non-numeric results) [facility], ) ID Date Data Source [id number] 08/17/2018 12:00:00 AM EDT MED[facility] ([facility] [...] results) Medical, ) ID Date Data Source [id number] 08/17/2018 12:00:00 AM EDT MED[facility] ([facility] [...] x10E6/uL to non-numeric Dony's Blood by results) [facility]) Automated count Hemoglobin 11.6 Below low normal MEDGEN (St [Mass/volume] in g/dL Dony's Blood [facility]) MCV 85 fL Normal (applies MEDGEN (St to non-numeric Dony's results) [facility]) Hematocrit 35.3 % Below low normal MEDGEN (St [Volume Dony's Fraction] of [facility]) Blood by Automated count MCH 27.9 pg Normal (applies MEDGEN (St to non-numeric Dony's results) [facility]) MCHC 32.9 Normal (applies MEDGEN (St g/dL to non-numeric Dony's results) [facility]) RDW 13.6 % Normal (applies MEDGEN (St to non-numeric Dony's results) [facility]) Platelets 303 Normal (applies MEDGEN (St [#/area] in x10E3/uL to non-numeric Dony's Blood by results) [facility], ) Microscopy high power field Lymphs 17 % Normal (applies MEDGEN (St to non-numeric Dony's results) [facility]) Neutrophils [#] 75 % Normal (applies MEDGEN ( St in Body fluid by to non-numeric Dony's Manual count results) [facility], ) Eos 3 % Normal (applies MEDGEN (St to non-numeric Dony's results) [facility]) Monocytes 5 % Normal (applies MEDGEN (St [#/volume] in to non-numeric Dony's Cord blood results) [facility]) Basos 0 % Normal (applies MEDGEN (St to non-numeric Dony's results) [facility]) Lymphs 1.3 Normal (applies MEDGEN (St (Absolute) x10E3/uL to non-numeric Dony's results) [facility]) Neutrophils 5.8 Normal (applies MEDGEN (St (Absolute) x10E3/uL to non-numeric Dony's results) [facility]) Monocytes(Absolu 0.4 Normal (applies MEDGEN (St te) [...] results) Medical, ) ID Date Data Source [id number] 08/17/2018 12:00:00 AM EDT [facility] ([facility] Name Value Range Interpretation Code Description Data Kimberly rce(s) Supporting Document(s ) ID Date Data Source [id number] 08/17/2018 12:00:00 AM EDT [facility] ([facility] Name Value Range Interpretation Description Data Sup porting Code Source(s) Document(s ) Request Test not Normal (applies to MEDGEN (St Problem performed non-numeric [facility]'s . results) Medical, ) ID Date Data Source [id number] 08/17/2018 12:00:00 AM EDT [facility] ([facility] Name Value Range Interpretation Description Data Sup porting Code Source(s) Document(s ) No Urine Test not Normal (applies to MEDGEN (St Received performed non-numeric [facility] . results) Medical, ) ID Date Data Source [id number] 08/17/2018 12:00:00 AM EDT [facility] ([facility] Name Value Range Interpretation Code Description Data Kimberly rce(s) Supporting Document(s ) ID Date Data Source [id number] 08/17/2018 12:00:00 AM EDT [facility] ([facility]) Name Value Range Interpretation Description Data Sup porting Code Source(s) Document(s ) Hemoglobin 9.0 % Above high normal MEDGEN (St A1c/Hemoglobin. [facility] total in Blood Medical, ) ID Date Data Source [id number] 08/17/2018 12:00:00 AM EDT [facility] ([facility] Name Value Range Interpretation Code Description Data Kimberly rce(s) Supporting Document(s ) PDF Image . Normal (applies to MEDGEN (St non-numeric results) [facility]) ID Date Data Source [id number] 08/17/2018 12:00:00 AM EDT MED[facility] ([facility] Above high normal MEDGEN (St Calc mg/dL [facility], ) VLDL Cholesterol 24 mg/dL Normal (applies MEDGEN (St Vasile to non-numeric Dony's results) [facility], ) ID Date Data Source [id number] 08/17/2018 12:00:00 AM EDT [facility] ([facility], ) ID Date Data Source [id number] 08/17/2018 12:00:00 AM EDT [facility] ([facility], ) Name Value Range Interpretation Code Description Data Kimberly rce(s) Supporting Document(s ) ID Date Data Source [id number] 08/17/2018 12:00:00 AM EDT [facility] ([facility], ) Name Value Range Interpretation Description Data Sup porting Code Source(s) Document(s ) Request Test not Normal (applies to MEDGEN (St Problem performed non-numeric Dony[facility] . results) Medical, ) ID Date Data Source [id number] 08/17/2018 12:00:00 AM EDT [facility] ([facility], ) Name Value Range Interpretation Description Data Sup porting Code Source(s) Document(s ) No Urine Test not Normal (applies to MEDGEN (St Received performed non-numeric [facility] . results) Medical, ) ID Date Data Source [id number] 08/17/2018 12:00:00 AM EDT [facility] ([facility], ) Name Value Range Interpretation Code Description Data Kimberly rce(s) Supporting Document(s ) Francisco Quirozv Normal (applies to [facility] ( St CMP14 non-numeric Dony's Default results) [facility], ) ID Date Data Source [id number] 08/17/2018 12:00:00 AM EDT [facility] ([facility], ) Name Value Range Interpretation Description Data Sup porting Code Source(s) Document(s ) Hemoglobin 9.0 % Above high normal [facility] (St A1c/Hemoglobin. [facility] total in Blood [facility], ) ID Date Data Source [id number] 08/17/2018 12:00:00 AM EDT [facility] ([facility], ) Name Value Range Interpretation Code Description Data Kimberly rce(s) Supporting Document(s ) PDF Image . Normal (applies to [facility] (St non-numeric results) [facility] ID Date Data Source [id number] 08/17/2018 12:00:00 AM EDT [facility] ([facility] [...] Above high normal [facility] (St Calc mg/dL [facility], ) ID Date Data Source [id number] 08/17/2018 12:00:00 AM EDT [facility] ([facility] [...] results) Medical, ) ID Date Data Source [id number] 08/17/2018 12:00:00 AM EDT [facility] ([facility] ) Name Value Range Interpretation Code Description Data Kimberly rce(s) Supporting Document(s ) ID Date Data Source [id number] 08/17/2018 12:00:00 AM EDT [facility] ([facility], ) Name Value Range Interpretation Description Data Sup porting Code Source(s) Document(s ) Request Test not Normal (applies to [facility] (St Problem performed non-numeric Dnoy's . results) Medical, ) ID Date Data Source [id number] 08/17/2018 12:00:00 AM EDT [facility] ([facility], ) Name Value Range Interpretation Description Data Sup porting Code Source(s) Document(s ) No Urine Test not Normal (applies to [facility] (St Received performed non-numeric [facility] . results) Medical, ) ID Date Data Source [id number] 08/17/2018 12:00:00 AM EDT [facility] ([facility] ) Name Value Range Interpretation Code Description Data Kimberly rce(s) Supporting Document(s ) ID Date Data Source [id number] 08/17/2018 12:00:00 AM EDT [facility] ([facility] Name Value Range Interpretation Description Data Sup porting Code Source(s) Document(s ) Hemoglobin 9.0 % Above high normal [facility] (St A1c/Hemoglobin. [facility] total in Blood [facility], ) ID Date Data Source [id number] 08/17/2018 12:00:00 AM EDT [facility] ([facility], ) Name Value Range Interpretation Code Description Data Kimberly rce(s) Supporting Document(s ) PDF Image . Normal (applies to [facility] (St non-numeric results) [facility]) ID Date Data Source [id number] 08/17/2018 12:00:00 AM EDT [facility] ([facility], ) Name Value Range Interpretation Description Data Sup porting Code Source(s) Document(s ) Cholesterol 225 Above high normal [facility] (St [Mass/volume] in mg/dL [facility] Serum or Plasma [facility], ) Triglyceride 121 Normal (applies [facility] (St [Mass/volume] in mg/dL to non-numeric [facility] Serum or Plasma results) [facility]) HDL Cholesterol 89 mg/dL Normal (applies [facility] ( St to non-numeric [facility]ony[facility] results) [facility]) VLDL Cholesterol 24 mg/dL Normal (applies [facility] (St Vasile to non-numeric [facility]ony's results) [facility]) LDL Cholesterol 112 Above high normal [facility] (St Calc mg/dL [facility]) ID Date Data Source [id number] 08/17/2018 12:00:00 AM EDT [facility] ([facility], ) Name Value Range Interpretation Description Data Sup porting Code Source(s) Document(s ) Erythrocytes 4.16 Normal (applies [facility] (St [#/volume] in x10E6/uL to non-numeric [facility] Blood by results) [facility]) Automated count Leukocytes 7.7 Normal (applies [facility] (St [#/volume] in x10E3/uL to non-numeric [facility] Blood by results) [facility]) Automated count Hemoglobin 11.6 Below low normal [facility] (St [Mass/volume] in g/dL [facility] Blood [facility]) Hematocrit 35.3 % Below low normal [facility] (St [Volume Doyn's Fraction] of [facility], ) ID Date Data Source [id number] 08/17/2018 12:00:00 AM EDT [facility] ([facility] Name Value Range Interpretation Code Description Data Kimberly rce(s) Supporting Document(s ) ID Date Data Source [id number] 08/17/2018 12:00:00 AM EDT [facility] ([facility] Name Value Range Interpretation Description Data Sup porting Code Source(s) Document(s ) Request Test not Normal (applies to [facility] (St Problem performed non-numeric [facility] . results) [facility]) ID Date Data Source [id number] 08/17/2018 12:00:00 AM EDT [facility] ([facility] Name Value Range Interpretation Description Data Sup porting Code Source(s) Document(s ) No Urine Test not Normal (applies to [facility] (St Received performed non-numeric [facility] . results) [facility]) No Urine Test not Normal (applies to [facility] (St Received performed non-numeric [facility] . results) [facility]) ID Date Data Source [id number] 08/17/2018 12:00:00 AM EDT [facility] ([facility] Name Value Range Interpretation Code Description Data Kimberly rce(s) Supporting Document(s ) ID Date Data Source [id number] 08/17/2018 12:00:00 AM EDT [facility] ([facility]) Blood ID Date Data Source [id number] 08/17/2018 12:00:00 AM EDT [facility] ([facility] [...] results) Medical, ) ID Date Data Source [id number] 08/17/2018 12:00:00 AM EDT [facility] ([facility], ) ID Date Data Source [id number] 08/17/2018 12:00:00 AM EDT [facility] ([facility], ) ID Date Data Source [id number] 08/17/2018 12:00:00 AM EDT [facility] ([facility], ) Name Value Range Interpretation Code Description Data Kimberly rce(s) Supporting Document(s ) Francisco Corrales Normal (applies to [facility] ( St CMP14 non-numeric Dony's Default results) [facility], ) ID Date Data Source [id number] 08/17/2018 12:00:00 AM EDT [facility] ([facility], ) Name Value Range Interpretation Description Data Sup porting Code Source(s) Document(s ) Hemoglobin 9.0 % Above high normal [facility] (St A1c/Hemoglobin. [facility] total in Blood [facility], ) ID Date Data Source [id number] 08/17/2018 12:00:00 AM EDT [facility] ([facility], ) Name Value Range Interpretation Code Description Data Kimberly rce(s) Supporting Document(s ) PDF Image . Normal (applies to [facility] (St non-numeric results) [facility]) ID Date Data Source [id number] 08/17/2018 12:00:00 AM EDT [facility] ([facility] [...] results) Medical, ) ID Date Data Source [id number] 08/17/2018 12:00:00 AM EDT [facility] ([facility], ) Name Value Range Interpretation Code Description Data Kimberly rce(s) Supporting Document(s ) ID Date Data Source [id number] 08/17/2018 12:00:00 AM EDT [facility] ([facility], ) Name Value Range Interpretation Description Data Sup porting Code Source(s) Document(s ) Request Test not Normal (applies to [facility] (St Problem performed non-numeric [facility] . results) Medical, ) ID Date Data Source [id number] 08/17/2018 12:00:00 AM EDT [facility] ([facility], ) Name Value Range Interpretation Description Data Sup porting Code Source(s) Document(s ) No Urine Test not Normal (applies to [facility] (St Received performed non-numeric [facility] . results) Medical, ) ID Date Data Source [id number] 08/17/2018 12:00:00 AM EDT [facility] ([facility], ) Name Value Range Interpretation Description Data Sup porting Code Source(s) Document(s ) Hemoglobin 9.0 % Above high normal [facility] (St A1c/Hemoglobin. [facility] total in Blood [facility], ) ID Date Data Source [id number] 08/17/2018 12:00:00 AM EDT [facility] ( [facility], ) Name Value Range Interpretation Code Description Data Kimberly rce(s) Supporting Document(s ) PDF Image . Normal (applies to [facility] (St non-numeric results) [facility]) ID Date Data Source [id number] 08/17/2018 12:00:00 AM EDT [facility] ([facility] [...] Above high normal [facility] (St Calc mg/dL [facility], ) ID Date Data Source [id number] 08/17/2018 12:00:00 AM EDT [facility] ( [facility], ) ID Date Data Source [id number] 08/17/2018 12:00:00 AM EDT [facility] ([facility], ) Name Value Range Interpretation Code Description Data Kimberly rce(s) Supporting Document(s ) ID Date Data Source [id number] 08/17/2018 12:00:00 AM EDT [facility] ([facility] Name Value Range Interpretation Description Data Sup porting Code Source(s) Document(s ) Request Test not Normal (applies to [facility] (St Problem performed non-numeric [facility] . results) [facility]) ID Date Data Source [id number] 08/17/2018 12:00:00 AM EDT [facility] ([facility] Name Value Range Interpretation Description Data Sup porting Code Source(s) Document(s ) No Urine Test not Normal (applies to [facility] (St Received performed non-numeric [facility] . results) [facility]) ID Date Data Source [id number] 08/17/2018 12:00:00 AM EDT [facility] ([facility] Name Value Range Interpretation Code Description Data Kimberly rce(s) Supporting Document(s ) ID Date Data Source [id number] 08/17/2018 12:00:00 AM EDT [facility] ([facility] Name Value Range Interpretation Description Data Sup porting Code Source(s) Document(s ) Hemoglobin 9.0 % Above high normal [facility] (St A1c/Hemoglobin. [facility] total in Blood Medical, ) ID Date Data Source Urinalysis 06/15/2018 06:00:00 PM EST [facility] Name Value Range Interpretation Description [...] by Test d">Urine Medical strip Specific [facility] [place] </content>1.02 5 NM<content styleCode="Lesli lics"> (1.015-1.025 NM)</content> [...] Data Source [id number] 06/15/2018 06:00:00 PM EST [facility] Name Value Range Interpretation Description [...] Date Data Source GFR(Creatinine) 06/15/2018 06:00:00 PM [facility] Name Value Range Interpretation Code Description Data Kimberly rce(s) Supporting Document(s ) UNK > 60 <content [facility] styleCode="Bold"> Medical Cent er EGFR </content>74 GFR<content styleCode="Italic s"> (> 60 GFR)</content> ID Date Data Source [id number] 06/15/2018 06:00:00 PM [facility] Name Value Range Interpretation Description Data Sup porting Code Source(s) Document(s ) Cannabinoids <content [facility] in styleCode="Jonny Karmen Urine by Screen d">Cannabinoid Medical method >50 ng/mL s Center </content>NEGA TIVE NG/ML (Reference Range: not available)<br/ > ID Date Data Source [id number] 06/15/2018 06:00:00 PM [facility] Name Value Range Interpretation Description Data [...] (74-106 MG/DL)</conten t> ID Date Data Source [id number] 06/01/2018 12:00:00 AM EST [facility] ([facility], ) Name Value Range Interpretation Code Description Data Kimberly rce(s) Supporting Document(s ) ID Date Data Source [id number] 06/01/2018 12:00:00 AM EST [facility] ([facility], ) Name Value Range Interpretation Code Description Data Kimberly rce(s) Supporting Document(s ) PDF Image . Normal (applies to [facility] (St non-numeric results) [facility] Me [facility], ) ID Date Data Source [id number] 06/01/2018 12:00:00 AM EST [facility] ([facility], ) Name Value Range Interpretation Description Data Sup porting Code Source(s) Document(s ) Hemoglobin 9.1 % Above high normal [facility] (St A1c/Hemoglobin. [facility] total in Blood [facility], ) ID Date Data Source [id number] 06/01/2018 12:00:00 AM EST [facility] ([facility] [...] for unspecified duration ID Date Data Source [id number] 06/01/2018 12:00:00 AM EST [facility] ([facility], ) Name Value Range Interpretation Code Description Data Kimberly rce(s) Supporting Document(s ) ID Date Data Source [id number] 06/01/2018 12:00:00 AM EST [facility] ([facility], ) Name Value Range Interpretation Code Description Data Kimberly rce(s) Supporting Document(s ) PDF Image . Normal (applies to [facility] (St non-numeric results) [facility]ony[facility] Me [facility]) ID Date Data Source [id number] 06/01/2018 12:00:00 AM EST [facility] ([facility], ) Name Value Range Interpretation Description Data Sup porting Code Source(s) Document(s ) Hemoglobin 9.1 % Above high normal [facility] (St A1c/Hemoglobin. [facility] total in Blood [facility], ) ID Date Data Source [id number] 06/01/2018 12:00:00 AM EST [facility] ([facility] [...] for unspecified duration ID Date Data Source [id number] 06/01/2018 12:00:00 AM EST [facility] ([facility], ) Name Value Range Interpretation Code Description Data Kimberly rce(s) Supporting Document(s ) ID Date Data Source [id number] 06/01/2018 12:00:00 AM EST [facility] ([facility], ) Name Value Range Interpretation Code Description Data Kimberly rce(s) Supporting Document(s ) PDF Image . Normal (applies to [facility] (St non-numeric results) [facility]ony[facility] Me [facility]) ID Date Data Source [id number] 06/01/2018 12:00:00 AM EST [facility] ([facility], ) Name Value Range Interpretation Description Data Sup porting Code Source(s) Document(s ) Hemoglobin 9.1 % Above high normal [facility] (St A1c/Hemoglobin. [facility] total in Blood [facility], ) ID Date Data Source [id number] 06/01/2018 12:00:00 AM EST [facility] ([facility] [...] for unspecified duration ID Date Data Source [id number] 06/01/2018 12:00:00 AM EST [facility] ([facility] ) Name Value Range Interpretation Code Description Data Kimberly rce(s) Supporting Document(s ) ID Date Data Source [id number] 06/01/2018 12:00:00 AM EST [facility] ([facility], ) Name Value Range Interpretation Code Description Data Kimberly rce(s) Supporting Document(s ) PDF Image . Normal (applies to [facility] (St non-numeric results) [facility]) ID Date Data Source [id number] 06/01/2018 12:00:00 AM EST [facility] ([facility], ) Name Value Range Interpretation Description Data Sup porting Code Source(s) Document(s ) Hemoglobin 9.1 % Above high normal [facility] (St A1c/Hemoglobin. [facility] total in Blood [facility], ) ID Date Data Source [id number] 06/01/2018 12:00:00 AM EST [facility] ([facility] [...] for unspecified duration ID Date Data Source [id number] 06/01/2018 12:00:00 AM EST [facility] ([facility], ) Name Value Range Interpretation Code Description Data Kimberly rce(s) Supporting Document(s ) ID Date Data Source [id number] 06/01/2018 12:00:00 AM EST [facility] ( [facility], ) Name Value Range Interpretation Code Description Data Kimberly rce(s) Supporting Document(s ) PDF Image . Normal (applies to [facility] (St non-numeric results) [facility] Me [facility]) ID Date Data Source [id number] 06/01/2018 12:00:00 AM EST [facility] ( [facility], ) Name Value Range Interpretation Description Data Sup porting Code Source(s) Document(s ) Hemoglobin 9.1 % Above high normal [facility] (St A1c/Hemoglobin. [facility]ony[facility] total in Blood [facility], ) ID Date Data Source [id number] 06/01/2018 12:00:00 AM EST [facility] ( [facility] [...] for unspecified duration ID Date Data Source [id number] 06/01/2018 12:00:00 AM EST [facility] ([facility], ) Name Value Range Interpretation Code Description Data Kimberly rce(s) Supporting Document(s ) ID Date Data Source [id number] 06/01/2018 12:00:00 AM EST [facility] ([facility], ) Name Value Range Interpretation Code Description Data Kimberly rce(s) Supporting Document(s ) PDF Image . Normal (applies to [facility] (St non-numeric results) [facility] Me [facility], ) ID Date Data Source [id number] 06/01/2018 12:00:00 AM EST [facility] ([facility], ) Name Value Range Interpretation Description Data Sup porting Code Source(s) Document(s ) Hemoglobin 9.1 % Above high normal [facility] (St A1c/Hemoglobin. [facility] total in Blood [facility], ) ID Date Data Source [id number] 06/01/2018 12:00:00 AM EST [facility] ([facility] [...] for unspecified duration ID Date Data Source [id number] 06/01/2018 12:00:00 AM EST [facility] ([facility] ) ID Date Data Source [id number] 06/01/2018 12:00:00 AM EST [facility] ([facility], ) ID Date Data Source [id number] 06/01/2018 12:00:00 AM EST [facility] ([facility], ) Name Value Range Interpretation Description Data Sup porting Code Source(s) Document(s ) Hemoglobin 9.1 % Above high normal [facility] (St A1c/Hemoglobin. [facility] total in Blood [facility], ) ID Date Data Source [id number] 06/01/2018 12:00:00 AM EST [facility] ([facility] [...] for unspecified duration ID Date Data Source [id number] 06/01/2018 12:00:00 AM EST [facility] (St [facility], ) Name Value Range Interpretation Code Description Data [facility] rce(s) Supporting Document(s ) ID Date Data Source [id number] 06/01/2018 12:00:00 AM EST [facility] (St [facility] [...] results) Medical, ) ID Date Data Source [id number] 06/01/2018 12:00:00 AM EST [facility] ([facility], ) Name Value Range Interpretation Description Data Sup porting Code Source(s) Document(s ) Hemoglobin 9.1 % Above high normal [facility] (St A1c/Hemoglobin. [facility]ony[facility] total in Blood [facility], ) ID Date Data Source [id number] 06/01/2018 12:00:00 AM EST [facility] ([facility] [...] for unspecified duration ID Date Data Source [id number] 06/01/2018 12:00:00 AM EST [facility] ([facility], ) Name Value Range Interpretation Code Description Data Kimberly rce(s) Supporting Document(s ) ID Date Data Source [id number] 06/01/2018 12:00:00 AM EST [facility] ([facility], ) Name Value Range Interpretation Code Description Data Kimberly rce(s) Supporting Document(s ) PDF Image . Normal (applies to [facility] (St non-numeric results) [facility]) ID Date Data Source [id number] 06/01/2018 12:00:00 AM EST [facility] ([facility] [...] for unspecified duration ID Date Data Source [id number] 06/01/2018 12:00:00 AM EST [facility] ([facility], ) Name Value Range Interpretation Code Description Data Kimberly rce(s) Supporting Document(s ) ID Date Data Source [id number] 06/01/2018 12:00:00 AM EST [facility] ([facility], ) Name Value Range Interpretation Code Description Data Kimberly rce(s) Supporting Document(s ) PDF Image . Normal (applies to [facility] (St non-numeric results) [facility]ony[facility] Me [facility], ) ID Date Data Source [id number] 06/01/2018 12:00:00 AM EST [facility] ([facility], ) Name Value Range Interpretation Description Data Sup porting Code Source(s) Document(s ) Hemoglobin 9.1 % Above high normal [facility] (St A1c/Hemoglobin. [facility]ony[facility] total in Blood [facility], ) ID Date Data Source [id number] 06/01/2018 12:00:00 AM EST [facility] ([facility] [...] for unspecified duration ID Date Data Source [id number] 06/01/2018 12:00:00 AM EST [facility] ([facility], ) Name Value Range Interpretation Code Description Data Kimberly rce(s) Supporting Document(s ) ID Date Data Source [id number] 06/01/2018 12:00:00 AM EST [facility] ([facility], ) Name Value Range Interpretation Code Description Data Kimberly rce(s) Supporting Document(s ) PDF Image . Normal (applies to [facility] (St non-numeric results) [facility]ony[facility] Me [facility]) ID Date Data Source [id number] 06/01/2018 12:00:00 AM EST [facility] ([facility], ) Name Value Range Interpretation Description Data Sup porting Code Source(s) Document(s ) Hemoglobin 9.1 % Above high normal [facility] (St A1c/Hemoglobin. [facility]ony[facility] total in Blood [facility], ) ID Date Data Source [id number] 06/01/2018 12:00:00 AM EST [facility] ([facility] [...] for unspecified duration ID Date Data Source [id number] 06/01/2018 12:00:00 AM EST [facility] Name Value Range Interpretation Code Description Data Kimberly rce(s) Supporting Document(s ) ID Date Data Source [id number] 06/01/2018 12:00:00 AM EST [facility] ([facility] Name Value Range Interpretation Code Description Data Kimberly rce(s) Supporting Document(s ) PDF Image . Normal (applies to [facility] (St non-numeric results) Dony[facility] Me dical, ) ID Date Data Source [id number] 06/01/2018 12:00:00 AM EST [facility] ([facility] Name Value Range Interpretation Description Data Sup porting Code Source(s) Document(s ) Hemoglobin 9.1 % Above high normal [facility] (St A1c/Hemoglobin. [facility]ony[facility] total in Blood Medical, ) ID Date Data Source [id number] 06/01/2018 12:00:00 AM EST [facility] ([facility] Name Value Range Interpretation Description Data Sup porting Code Source(s) Document(s ) Glucose 229 mg/dL Above high normal [facility] (St [Mass/volume] Od[facility] in Urine [facility] [...] Serum or Plasma ID Date Data Source [id number] 06/01/2018 12:00:00 AM EST [facility] ([facility], ) Name Value Range Interpretation Code Description Data Kimberly rce(s) Supporting Document(s ) ID Date Data Source [id number] 06/01/2018 12:00:00 AM EST [facility] ([facility] [...] results) [facility]) ID Date Data Source [id number] 06/01/2018 12:00:00 AM EST [facility] ([facility]) Blood ID Date Data Source [id number] 06/01/2018 12:00:00 AM EST [facility] ([facility] [...] to non-numeric Dony[facility] in Serum or results) [facility]) Plasma Chloride 105 Normal (applies [facility] (St [Moles/volume] mmol/L to non-numeric Dony[facility] in Serum or results) [facility]) Plasma Calcium 9.3 mg/dL Normal (applies [facility] (St [Moles/volume] to non-numeric Dony's in Urine results) [facility], ) collected for unspecified duration Carbon dioxide, 21 mmol/L Normal (applies [facility] ( St total to non-numeric Dony's [Moles/volume] results) [facility]) in Serum or Plasma Urea nitrogen 33 [...] Am mL/min/1. to non-numeric Donys 73 results) [facility]) BUN/Creatinine 23 Above high normal [facility] (St [...] for unspecified duration ID Date Data Source [id number] 06/01/2018 12:00:00 AM EST [facility] ([facility], ) Name Value Range Interpretation Code Description Data Kimberly rce(s) Supporting Document(s ) ID Date Data Source [id number] 06/01/2018 12:00:00 AM EST [facility] ([facility], ) Name Value Range Interpretation Code Description Data Kimberly rce(s) Supporting Document(s ) PDF Image . Normal (applies to [facility] (St non-numeric results) [facility] Me [facility]) ID Date Data Source [id number] 06/01/2018 12:00:00 AM EST [facility] ([facility], ) Name Value Range Interpretation Description Data Sup porting Code Source(s) Document(s ) Hemoglobin 9.1 % Above high normal [facility] (St A1c/Hemoglobin. Dnoy's total in Blood Medical, ) ID Date Data Source [id number] 06/01/2018 12:00:00 AM EST [facility] ([facility] [...] for unspecified duration ID Date Data Source [id number] 06/01/2018 12:00:00 AM EST [facility] ([facility], ) Name Value Range Interpretation Code Description Data Kimberly rce(s) Supporting Document(s ) ID Date Data Source [id number] 06/01/2018 12:00:00 AM EST [facility] ([facility], ) Name Value Range Interpretation Code Description Data Kimberly rce(s) Supporting Document(s ) PDF Image . Normal (applies to [facility] (St non-numeric results) [facility]ony[facility] Me [facility], ) ID Date Data Source [id number] 06/01/2018 12:00:00 AM EST [facility] ([facility], ) Name Value Range Interpretation Description Data Sup porting Code Source(s) Document(s ) Hemoglobin 9.1 % Above high normal [facility] (St A1c/Hemoglobin. Dony's total in Blood [facility], ) ID Date Data Source [id number] 06/01/2018 12:00:00 AM EST [facility] ([facility] [...] for unspecified duration ID Date Data Source [id number] 02/02/2018 12:00:00 AM EDT [facility] ([facility] Name Value Range Interpretation Code Description Data Kimberly rce(s) Supporting Document(s ) ID Date Data Source [id number] 02/02/2018 12:00:00 AM EDT [facility] ([facility]) Name Value Range Interpretation Description Data Sup porting Code Source(s) Document(s ) Hemoglobin 8.3 % Above high normal [facility] (St A1c/Hemoglobin. [facility]ony[facility] total in Blood Medical, ) ID Date Data Source [id number] 02/02/2018 12:00:00 AM EDT [facility]) Name Value Range Interpretation Code Description Data Kimberly rce(s) Supporting Document(s ) PDF Image . Normal (applies to [facility] (St non-numeric results) [facility], [facility]) ID Date Data Source [id number] 02/02/2018 12:00:00 AM EDT [facility]) Name Value Range Interpretation Code Description Data Kimberly rce(s) Supporting Document(s ) ID Date Data Source [id number] 02/02/2018 12:00:00 AM EDT [facility]) Name Value Range Interpretation Description Data Sup porting Code Source(s) Document(s ) Hemoglobin 8.3 % Above high normal [facility] (St A1c/Hemoglobin. [facility]ony[facility] total in Blood Medical, ) ID Date Data Source [id number] 02/02/2018 12:00:00 AM EDT [facility] ([facility] Name Value Range Interpretation Code Description Data Kimberly rce(s) Supporting Document(s ) PDF Image . Normal (applies to [facility] (St non-numeric results) [facility]) ID Date Data Source [id number] 02/02/2018 12:00:00 AM EDT [facility] Name Value Range Interpretation Code Description Data Kimberly rce(s) Supporting Document(s ) ID Date Data Source [id number] 02/02/2018 12:00:00 AM EDT [facility]) Name Value Range Interpretation Description Data Sup porting Code Source(s) Document(s ) Hemoglobin 8.3 % Above high normal [facility] (St A1c/Hemoglobin. [facility] total in Blood [facility], [facility]) ID Date Data Source [id number] 02/02/2018 12:00:00 AM EDT [facility] Name Value Range Interpretation Code Description Data Kimberly rce(s) Supporting Document(s ) PDF Image . Normal (applies to [facility] (St non-numeric results) [facility]) ID Date Data Source [id number] 02/02/2018 12:00:00 AM EDT [facility] Name Value Range Interpretation Code Description Data Kimberly rce(s) Supporting Document(s ) ID Date Data Source [id number] 02/02/2018 12:00:00 AM EDT [facility] Name Value Range Interpretation Description Data Sup porting Code Source(s) Document(s ) Hemoglobin 8.3 % Above high normal [facility] (St A1c/Hemoglobin. [facility] total in Blood Medical, [facility]) ID Date Data Source [id number] 02/02/2018 12:00:00 AM EDT [facility] Name Value Range Interpretation Code Description Data Kimberly rce(s) Supporting Document(s ) PDF Image . Normal (applies to [facility] (St non-numeric results) [facility]) ID Date Data Source [id number] 02/02/2018 12:00:00 AM EDT [facility] Name Value Range Interpretation Code Description Data Kimberly rce(s) Supporting Document(s ) ID Date Data Source [id number] 02/02/2018 12:00:00 AM EDT [facility] Name Value Range Interpretation Description Data Sup porting Code Source(s) Document(s ) Hemoglobin 8.3 % Above high normal [facility] (St A1c/Hemoglobin. [facility] total in Blood [facility], [facility]) ID Date Data Source [id number] 02/02/2018 12:00:00 AM EDT [facility] Name Value Range Interpretation Code Description Data Kimberly rce(s) Supporting Document(s ) PDF Image . Normal (applies to [facility] (St non-numeric results) [facility]) ID Date Data Source [id number] 02/02/2018 12:00:00 AM EDT [facility] Name Value Range Interpretation Code Description Data Kimberly rce(s) Supporting Document(s ) ID Date Data Source [id number] 02/02/2018 12:00:00 AM EDT [facility] Name Value Range Interpretation Description Data Sup porting Code Source(s) Document(s ) Hemoglobin 8.3 % Above high normal [facility] (St A1c/Hemoglobin. [facility] total in Blood [facility], [facility]) ID Date Data Source [id number] 02/02/2018 12:00:00 AM EDT [facility] ([facility] Name Value Range Interpretation Code Description Data Kimberly rce(s) Supporting Document(s ) PDF Image . Normal (applies to [facility] (St non-numeric results) [facility]) ID Date Data Source [id number] 02/02/2018 12:00:00 AM EDT [facility] ([facility] Name Value Range Interpretation Code Description Data Kimberly rce(s) Supporting Document(s ) ID Date Data Source [id number] 02/02/2018 12:00:00 AM EDT [facility] Name Value Range Interpretation Description Data Sup porting Code Source(s) Document(s ) Hemoglobin 8.3 % Above high normal [facility] (St A1c/Hemoglobin. [facility] total in Blood [facility], [facility]) ID Date Data Source [id number] 02/02/2018 12:00:00 AM EDT [facility] Name Value Range Interpretation Code Description Data Kimberly rce(s) Supporting Document(s ) PDF Image . Normal (applies to [facility] (St non-numeric results) [facility]) ID Date Data Source [id number] 02/02/2018 12:00:00 AM EDT [facility] Name Value Range Interpretation Code Description Data Kimberly rce(s) Supporting Document(s ) ID Date Data Source [id number] 02/02/2018 12:00:00 AM EDT [facility] Name Value Range Interpretation Description Data Sup porting Code Source(s) Document(s ) Hemoglobin 8.3 % Above high normal [facility] (St A1c/Hemoglobin. [facility] total in Blood [facility], [facility]) ID Date Data Source [id number] 02/02/2018 12:00:00 AM EDT [facility] ([facility] Name Value Range Interpretation Code Description Data Kimberly rce(s) Supporting Document(s ) PDF Image . Normal (applies to [facility] (St non-numeric results) [facility]) ID Date Data Source [id number] 02/02/2018 12:00:00 AM EDT [facility] ([facility] Name Value Range Interpretation Code Description Data Kimberly rce(s) Supporting Document(s ) ID Date Data Source [id number] 02/02/2018 12:00:00 AM EDT [facility] ([facility] Name Value Range Interpretation Description Data Sup porting Code Source(s) Document(s ) Hemoglobin 8.3 % Above high normal [facility] (St A1c/Hemoglobin. [facility] total in Blood [facility], [facility]) ID Date Data Source [id number] 02/02/2018 12:00:00 AM EDT [facility] ([facility] Name Value Range Interpretation Code Description Data Kimberly rce(s) Supporting Document(s ) PDF Image . Normal (applies to [facility] (St non-numeric results) [facility]) ID Date Data Source [id number] 02/02/2018 12:00:00 AM EDT [facility] ([facility] Name Value Range Interpretation Code Description Data Kimberly rce(s) Supporting Document(s ) ID Date Data Source [id number] 02/02/2018 12:00:00 AM EDT [facility] ([facility] Name Value Range Interpretation Description Data Sup porting Code Source(s) Document(s ) Hemoglobin 8.3 % Above high normal [facility] (St A1c/Hemoglobin. [facility] total in Blood [facility], [facility]) ID Date Data Source [id number] 02/02/2018 12:00:00 AM EDT [facility] ([facility] Name Value Range Interpretation Code Description Data Kimberly rce(s) Supporting Document(s ) PDF Image . Normal (applies to [facility] (St non-numeric results) [facility]) ID Date Data Source [id number] 02/02/2018 12:00:00 AM EDT [facility] ([facility] Name Value Range Interpretation Code Description Data Kimberly rce(s) Supporting Document(s ) PDF Image . Normal (applies to [facility] (St non-numeric results) [facility]) ID Date Data Source [id number] 02/02/2018 12:00:00 AM EDT [facility] ([facility] Name Value Range Interpretation Code Description Data Kimberly rce(s) Supporting Document(s ) ID Date Data Source [id number] 02/02/2018 12:00:00 AM EDT [facility] ([facility] Name Value Range Interpretation Description Data Sup porting Code Source(s) Document(s ) Hemoglobin 8.3 % Above high normal [facility] (St A1c/Hemoglobin. Dony[facility] total in Blood Medical, [facility]) ID Date Data Source [id number] 02/02/2018 12:00:00 AM EDT [facility] ([facility] Name Value Range Interpretation Code Description Data Kimberly rce(s) Supporting Document(s ) PDF Image . Normal (applies to [facility] (St non-numeric results) [facility], [facility]) ID Date Data Source [id number] 02/02/2018 12:00:00 AM EDT [facility] Name Value Range Interpretation Code Description Data Kimberly rce(s) Supporting Document(s ) ID Date Data Source [id number] 02/02/2018 12:00:00 AM EDT [facility] ([facility]) Blood ID Date Data Source [id number] 02/02/2018 12:00:00 AM EDT [facility] ([facility] [...] results) Medical, [facility]) ID Date Data Source [id number] 02/02/2018 12:00:00 AM EDT [facility] Name Value Range Interpretation Code Description Data Kimberly rce(s) Supporting Document(s ) ID Date Data Source [id number] 02/02/2018 12:00:00 AM EDT [facility] Name Value Range Interpretation Description Data Sup porting Code Source(s) Document(s ) Hemoglobin 8.3 % Above high normal [facility] (St A1c/Hemoglobin. Dony[facility] total in Blood Medical, ) ID Date Data Source [id number] 02/02/2018 12:00:00 AM EDT [facility] ([facility], ) Name Value Range Interpretation Code Description Data Kimberly rce(s) Supporting Document(s ) PDF Image . Normal (applies to [facility] (St non-numeric results) [facility] Me dical, ) ID Date Data Source [id number] 01/19/2018 12:00:00 AM EDT [facility] ([facility], ) ID Date Data Source [id number] 01/19/2018 12:00:00 AM EDT [facility] ([facility], ) Name Value Range Interpretation Code Description Data Supporting Source(s) Document(s ) Creatinine 165.0 Normal (applies to [facility] (St , Urine mg/dL non-numeric Dony's results) [facility], ) ID Date Data Source [id number] 01/19/2018 12:00:00 AM EDT [facility] ([facility], ) Name Value Range Interpretation Code Description Data Supporting Source(s) Document(s ) Sodium, 81 mmol/L Normal (applies to [facility] (St Urine non-numeric Dony's results) [facility], ) ID Date Data Source [id number] 01/19/2018 12:00:00 AM EDT [facility] ([facility], ) ID Date Data Source [id number] 01/19/2018 12:00:00 AM EDT [facility] ([facility] [...] for unspecified duration ID Date Data Source [id number] 01/19/2018 12:00:00 AM EDT [facility] ([facility] [...] by Light microscopy ID Date Data Source [id number] 01/19/2018 12:00:00 AM EDT [facility] ([facility] Name Value Range Interpretation Code Description Data Kimberly rce(s) Supporting Document(s ) . Normal (applies to [facility] (St non-numeric results) [facility], [facility]) Dear Normal (applies to [facility] (St Doctor, non-numeric results) [facility], [facility]) ID Date Data Source [id number] 01/19/2018 12:00:00 AM EDT [facility] ([facility] [...] results) Medical, [facility]) ID Date Data Source [id number] 01/19/2018 12:00:00 AM EDT [facility] ([facility], ) Name Value Range Interpretation Code Description Data Supporting Source(s) Document(s ) Creatinine 165.0 Normal (applies to [facility] (St , Urine mg/dL non-numeric Dony's results) Medical, ) ID Date Data Source [id number] 01/19/2018 12:00:00 AM EDT [facility] ([facility], ) Name Value Range Interpretation Code Description Data Supporting Source(s) Document(s ) Sodium, 81 mmol/L Normal (applies to [facility] (St Urine non-numeric Dony's results) Medical, ) ID Date Data Source [id number] 01/19/2018 12:00:00 AM EDT [facility] ([facility], ) Name Value Range Interpretation Description Data Sup porting Code Source(s) Document(s ) Folate 13.0 Normal (applies to [facility] (St (Folic ng/mL non-numeric Dony's Acid), Serum results) Medical, ) Vitamin B12 607 pg/mL Normal (applies to [facility] (S t non-numeric Dony's results) Medical, ) ID Date Data Source [id number] 01/19/2018 12:00:00 AM EDT [facility] ([facility] [...] for unspecified duration ID Date Data Source [id number] 01/19/2018 12:00:00 AM EDT [facility] ([facility] [...] by Light microscopy ID Date Data Source [id number] 01/19/2018 12:00:00 AM EDT [facility] ([facility], ) Name Value Range Interpretation Code Description Data Kimberly rce(s) Supporting Document(s ) . Normal (applies to [facility] (St non-numeric results) [facility] Me dicnc, ) Dear Normal (applies to [facility] (St Doctor, non-numeric results) [facility] Me dical, ) ID Date Data Source [id number] 01/19/2018 12:00:00 AM EDT [facility] ([facility] [...] results) Medical, ) ID Date Data Source [id number] 01/19/2018 12:00:00 AM EDT [facility] ([facility], ) Name Value Range Interpretation Code Description Data Supporting Source(s) Document(s ) Creatinine 165.0 Normal (applies to [facility] (St , Urine mg/dL non-numeric Dony's results) Medical, ) ID Date Data Source [id number] 01/19/2018 12:00:00 AM EDT [facility] ([facility], ) Name Value Range Interpretation Code Description Data Supporting Source(s) Document(s ) Sodium, 81 mmol/L Normal (applies to [facility] (St Urine non-numeric Dony's results) Medical, ) ID Date Data Source [id number] 01/19/2018 12:00:00 AM EDT [facility] ([facility], ) Name Value Range Interpretation Description Data Sup porting Code Source(s) Document(s ) Vitamin B12 607 pg/mL Normal (applies to [facility] (S t non-numeric Dony's results) Medical, ) Folate 13.0 Normal (applies to [facility] (St (Folic ng/mL non-numeric Dony's Acid), Serum results) Medical, ) ID Date Data Source [id number] 01/19/2018 12:00:00 AM EDT [facility] ([facility], ) Name Value Range Interpretation [...] for unspecified duration ID Date Data Source [id number] 01/19/2018 12:00:00 AM EDT [facility] ([facility] [...] results) Medical, ) ID Date Data Source [id number] 01/19/2018 12:00:00 AM EDT [facility] ([facility], ) Name Value Range Interpretation Code Description Data Kimberly rce(s) Supporting Document(s ) Dear Normal (applies to [facility] (St Doctor, non-numeric results) [facility]) . Normal (applies to [facility] (St non-numeric results) [facility], [facility]) ID Date Data Source [id number] 01/19/2018 12:00:00 AM EDT [facility] ([facility], ) ID Date Data Source [id number] 01/19/2018 12:00:00 AM EDT [facility] ([facility], ) Name Value Range Interpretation Code Description Data Supporting Source(s) Document(s ) Creatinine 165.0 Normal (applies to [facility] (St , Urine mg/dL non-numeric Dony's results) [facility], ) ID Date Data Source [id number] 01/19/2018 12:00:00 AM EDT [facility] ([facility], ) ID Date Data Source [id number] 01/19/2018 12:00:00 AM EDT [facility] ([facility] [...] for unspecified duration ID Date Data Source [id number] 01/19/2018 12:00:00 AM EDT [facility] ([facility] [...] by Light microscopy ID Date Data Source [id number] 01/19/2018 12:00:00 AM EDT [facility] ([facility] [...] results) Medical, ) ID Date Data Source [id number] 01/19/2018 12:00:00 AM EDT [facility] ([facility], ) Name Value Range Interpretation Code Description Data Supporting Source(s) Document(s ) Creatinine 165.0 Normal (applies to [facility] (St , Urine mg/dL non-numeric Dony's results) Medical, ) ID Date Data Source [id number] 01/19/2018 12:00:00 AM EDT [facility], ) Name Value Range Interpretation Code Description Data Supporting Source(s) Document(s ) Sodium, 81 mmol/L Normal (applies to [facility] (St Urine non-numeric Dony's results) [facility], ) ID Date Data Source [id number] 01/19/2018 12:00:00 AM EDT [facility] ([facility], ) ID Date Data Source [id number] 01/19/2018 12:00:00 AM EDT [facility] ([facility] [...] for unspecified duration ID Date Data Source [id number] 01/19/2018 12:00:00 AM EDT [facility] ([facility] [...] by Light microscopy ID Date Data Source [id number] 01/19/2018 12:00:00 AM EDT [facility] ([facility], ) Name Value Range Interpretation Code Description Data Kimberly rce(s) Supporting Document(s ) . Normal (applies to [facility] (St non-numeric results) [facility] Me dical, ) Dear Normal (applies to [facility] (St Doctor, non-numeric results) [facility] Nv dical, ) ID Date Data Source [id number] 01/19/2018 12:00:00 AM EDT [facility] ([facility] [...] results) Medical, ) ID Date Data Source [id number] 01/19/2018 12:00:00 AM EDT [facility] ([facility], ) Name Value Range Interpretation Code Description Data Supporting Source(s) Document(s ) Creatinine 165.0 Normal (applies to [facility] (St , Urine mg/dL non-numeric Dony's results) Medical, ) ID Date Data Source [id number] 01/19/2018 12:00:00 AM EDT [facility] ([facility], ) Name Value Range Interpretation Code Description Data Supporting Source(s) Document(s ) Dear Normal (applies to [facility] (St Doctor, non-numeric Dony's results) Medical, ) Sodium, 81 mmol/L Normal (applies to [facility] (St Urine non-numeric Dony's results) Medical, ) ID Date Data Source [id number] 01/19/2018 12:00:00 AM EDT [facility] ([facility] ) ID Date Data Source [id number] 01/19/2018 12:00:00 AM EDT [facility] ([facility] [...] Serum or Plasma ID Date Data Source [id number] 01/19/2018 12:00:00 AM EDT [facility] ([facility] [...] by Light microscopy ID Date Data Source [id number] 01/19/2018 12:00:00 AM EDT [facility] ([facility] [...] results) Medical, ) ID Date Data Source [id number] 01/19/2018 12:00:00 AM EDT [facility] ([facility], ) Name Value Range Interpretation Description Data Sup porting Code Source(s) Document(s ) pH of Lower 5.0 Normal (applies [facility] (St respiratory to non-numeric Dony's specimen results) Medical, PC) Specific gravity 1.021 Normal (applies [facility] (St of Pericardial to non-numeric Dony's fluid by results) Medical, [facility]) Urine-Color Yellow Normal (applies [facility] (St to [...] results) Medical, ) ID Date Data Source [id number] 01/19/2018 12:00:00 AM EDT [facility] ( [facility] [facility], ) Name Value Range Interpretation Code Description Data Supporting Source(s) Document(s ) Creatinine 165.0 Normal (applies to [facility] (St , Urine mg/dL non-numeric Dony's results) [facility], ) ID Date Data Source [id number] 01/19/2018 12:00:00 AM EDT [facility] ([facility], ) Name Value Range Interpretation Code Description Data Supporting Source(s) Document(s ) Sodium, 81 mmol/L Normal (applies to [facility] (St Urine non-numeric Dony's results) Medical, ) ID Date Data Source [id number] 01/19/2018 12:00:00 AM EDT [facility] ([facility] [...] results) Medical, ) ID Date Data Source [id number] 01/19/2018 12:00:00 AM EDT [facility] ([facility] [...] (applies [facility] (S t Ratio to non-numeric Odny's results) Medical, ) Sodium 140 Normal (applies [...] Serum or Plasma ID Date Data Source [id number] 01/19/2018 12:00:00 AM EDT [facility] ([facility] [...] by Light microscopy ID Date Data Source [id number] 01/19/2018 12:00:00 AM EDT [facility] ([facility], ) Name Value Range Interpretation Code Description Data Kimberly rce(s) Supporting Document(s ) . Normal (applies to [facility] (St non-numeric results) [facility] Nv dicnc, ) Dear Normal (applies to [facility] (St Doctor, non-numeric results) [facility]'s Nv dical, ) ID Date Data Source [id number] 01/19/2018 12:00:00 AM EDT [facility] ([facility] [...] results) Medical, ) ID Date Data Source [id number] 01/19/2018 12:00:00 AM EDT [facility] ([facility], ) Name Value Range Interpretation Code Description Data Supporting Source(s) Document(s ) Sodium, 81 mmol/L Normal (applies to [facility] (St Urine non-numeric Dony's results) Medical, ) ID Date Data Source [id number] 01/19/2018 12:00:00 AM EDT [facility] ([facility] [...] results) Medical, ) ID Date Data Source [id number] 01/19/2018 12:00:00 AM EDT [facility] ([facility] [...] for unspecified duration ID Date Data Source [id number] 01/19/2018 12:00:00 AM EDT [facility] ([facility] [...] by Light microscopy ID Date Data Source [id number] 01/19/2018 12:00:00 AM EDT [facility] ([facility], ) Name Value Range Interpretation Code Description Data Kimberly rce(s) Supporting Document(s ) Dear Normal (applies to [facility] (St Doctor, non-numeric results) [facility] Nv dicnc, ) . Normal (applies to [facility] (St non-numeric results) [facility] Nv dicnc, ) ID Date Data Source [id number] 01/19/2018 12:00:00 AM EDT [facility] ([facility] [...] [facility]'S [facility], ) ID Date Data Source [id number] 01/19/2018 12:00:00 AM EDT [facility] ([facility], ) Name Value Range Interpretation Code Description Data Supporting Source(s) Document(s ) Creatinine 165.0 Normal (applies to [facility] (St , Urine mg/dL non-numeric Dony's results) [facility], ) ID Date Data Source [id number] 01/19/2018 12:00:00 AM EDT [facility] ([facility], ) Name Value Range Interpretation Code Description Data Supporting Source(s) Document(s ) Sodium, 81 mmol/L Normal (applies to [facility] (St Urine non-numeric Dony's results) [facility], ) ID Date Data Source [id number] 01/19/2018 12:00:00 AM EDT [facility] ([facility], ) ID Date Data Source [id number] 01/19/2018 12:00:00 AM EDT [facility] [...] for unspecified duration ID Date Data Source [id number] 01/19/2018 12:00:00 AM EDT [facility] ([facility] [...] by Light microscopy ID Date Data Source [id number] 01/19/2018 12:00:00 AM EDT [facility] ([facility] Name Value Range Interpretation Code Description Data Kimberly rce(s) Supporting Document(s ) . Normal (applies to [facility] (St non-numeric results) [facility]) Dear Normal (applies to [facility] (St Doctor, non-numeric results) [facility]) ID Date Data Source [id number] 01/19/2018 12:00:00 AM EDT [facility] ([facility], ) Name Value Range Interpretation Description [...] results) Medical, ) ID Date Data Source [id number] 01/19/2018 12:00:00 AM EDT [facility] ([facility], ) Name Value Range Interpretation Code Description Data Supporting Source(s) Document(s ) Sodium, 81 mmol/L Normal (applies to [facility] (St Urine non-numeric Dony's results) Medical, ) ID Date Data Source [id number] 01/19/2018 12:00:00 AM EDT [facility] ([facility] [...] results) Medical, ) ID Date Data Source [id number] 01/19/2018 12:00:00 AM EDT [facility] ([facility] [place] [...] by Light microscopy ID Date Data Source [id number] 01/19/2018 12:00:00 AM EDT [facility] ([facility] Name Value Range Interpretation Code Description Data Kimberly rce(s) Supporting Document(s ) Dear Normal (applies to [facility] (St Doctor, non-numeric results) [facility]) . Normal (applies to [facility] (St non-numeric results) [facility]) ID Date Data Source [id number] 01/19/2018 12:00:00 AM EDT [facility] ([facility] [place] [...] results) Medical, ) ID Date Data Source [id number] 01/19/2018 12:00:00 AM EDT [facility] ([facility], ) Name Value Range Interpretation Code Description Data Supporting Source(s) Document(s ) Creatinine 165.0 Normal (applies to [facility] (St , Urine mg/dL non-numeric [facility] results) Medical, ) ID Date Data Source [id number] 01/19/2018 12:00:00 AM EDT [facility] ([facility], ) Name Value Range Interpretation Code Description Data Supporting Source(s) Document(s ) Sodium, 81 mmol/L Normal (applies to [facility] (St Urine non-numeric [facility]ony[facility] results) Medical, ) ID Date Data Source [id number] 01/19/2018 12:00:00 AM EDT [facility] ([facility] [...] results) Medical, ) ID Date Data Source [id number] 01/19/2018 12:00:00 AM EDT [facility] ([facility] by Light microscopy ID Date Data Source [id number] 01/19/2018 12:00:00 AM EDT [facility] ([facility], ) Name Value Range Interpretation Code Description Data Kimberly rce(s) Supporting Document(s ) ID Date Data Source [id number] 01/19/2018 12:00:00 AM EDT [facility] ([facility] [...] results) Medical, ) ID Date Data Source [id number] 01/19/2018 12:00:00 AM EDT [facility] ([facility], ) Name Value Range Interpretation Code Description Data Supporting Source(s) Document(s ) Creatinine 165.0 Normal (applies to [facility] (St , Urine mg/dL non-numeric [facility]ony[facility] results) Medical, ) ID Date Data Source [id number] 01/19/2018 12:00:00 AM EDT [facility] ([facility], ) Name Value Range Interpretation Code Description Data Supporting Source(s) Document(s ) Sodium, 81 mmol/L Normal (applies to [facility] (St Urine non-numeric [facility]ony's results) Medical, ) ID Date Data Source [id number] 01/19/2018 12:00:00 AM EDT [facility] ([facility] [place] [...] results) Medical, ) ID Date Data Source [id number] 01/19/2018 12:00:00 AM EDT [facility] ([facility] [place] [...] for unspecified duration ID Date Data Source [id number] 01/19/2018 12:00:00 AM EDT [facility] ([facility] [place] [...] results) Medical, ) ID Date Data Source [id number] 01/19/2018 12:00:00 AM EDT [facility] ([facility], ) Name Value Range Interpretation Code Description Data Kimberly rce(s) Supporting Document(s ) ID Date Data Source [id number] 01/19/2018 12:00:00 AM EDT [facility] ([facility], ) Name Value Range Interpretation Description [...] results) Medical, ) ID Date Data Source [id number] 01/19/2018 12:00:00 AM EDT [facility] ([facility], ) Name Value Range Interpretation Code Description Data Supporting Source(s) Document(s ) Creatinine 165.0 Normal (applies to [facility] (St , Urine mg/dL non-numeric Dony's results) Medical, ) ID Date Data Source [id number] 01/19/2018 12:00:00 AM EDT [facility] ([facility], ) Name Value Range Interpretation Code Description Data Supporting Source(s) Document(s ) Sodium, 81 mmol/L Normal (applies to [facility] (St Urine non-numeric Dony's results) [facility], ) ID Date Data Source [id number] 01/19/2018 12:00:00 AM EDT [facility] ([facility], ) ID Date Data Source [id number] 01/19/2018 12:00:00 AM EDT [facility] ([facility] [...] [facility] (St NonAfricn Am mL/min/1. [facility]ony's 73 [facility]) BUN/Creatinine 23 Above high normal [facility] (St Ratio Dony's [facility], ) eGFR If Africn 63 Normal (applies [facility] (S t Am mL/min/1. to non-numeric Dony's 73 results) [facility]) Potassium 5.4 Above high normal [facility] (St [Mass/volume] mmol/L [facility]ony[facility] in Blood [facility]) Sodium 143 Normal (applies [facility] (St [Moles/volume] mmol/L to non-numeric Dony's in Serum or results) [facility]) Plasma Carbon dioxide, 20 mmol/L Normal (applies [facility] ( St total to non-numeric Dony's [Moles/volume] results) [facility]) in Serum or Plasma Chloride 106 Normal (applies [facility] (St [Moles/volume] mmol/L to non-numeric Dony's in Serum or results) [facility]) Plasma Calcium 9.4 mg/dL Normal (applies [facility] (St [Moles/volume] to non-numeric Dony's in Urine results) [facility]) collected for unspecified duration Glucose 238 mg/dL Above high normal [facility] (St [Mass/volume] [facility]ony[facility] in Urine [facility]) collected for unspecified duration Urea nitrogen 21 mg/dL Normal (applies [facility] (St [Mass/volume] to non-numeric Dony's in Serum or results) [facility]) Plasma Creatinine 1.13 Normal (applies [facility] (St [Interpretation mg/dL to non-numeric Dony's ] in Urine results) [facility]) eGFR If 74 Normal (applies [facility] (St NonAfricn Am mL/min/1. to non-numeric Dony's 73 results) [facility]) eGFR If Africn 85 Normal (applies [facility] (S t Am mL/min/1. to non-numeric Dony's 73 results) [facility]) BUN/Creatinine 19 Normal (applies [facility] (S t Ratio to non-numeric Dony's results) [facility]) Sodium 140 Normal (applies [facility] (St [Moles/volume] [...] for unspecified duration ID Date Data Source [id number] 01/19/2018 12:00:00 AM EDT [facility] ([facility] [place] [...] by Light microscopy ID Date Data Source [id number] 01/19/2018 12:00:00 AM EDT [facility] ([facility], ) Name Value Range Interpretation Code Description Data Kimberly rce(s) Supporting Document(s ) ID Date Data Source [id number] 01/19/2018 12:00:00 AM EDT [facility] ([facility] [...] results) Medical, ) ID Date Data Source [id number] 01/19/2018 12:00:00 AM EDT [facility] ([facility], ) Name Value Range Interpretation Code Description Data Supporting Source(s) Document(s ) Creatinine 165.0 Normal (applies to [facility] (St , Urine mg/dL non-numeric [facility]ony's results) Medical, ) ID Date Data Source [id number] 01/19/2018 12:00:00 AM EDT [facility] ([facility] [place] [...] for unspecified duration ID Date Data Source [id number] 01/19/2018 12:00:00 AM EDT [facility] ([facility] [place] [...] results) Medical, ) ID Date Data Source [id number] 01/19/2018 12:00:00 AM EDT [facility] ([facility] [place] [...] results) Medical, ) ID Date Data Source [id number] 01/19/2018 12:00:00 AM EDT [facility] ([facility], ) Name Value Range Interpretation Code Description Data Supporting Source(s) Document(s ) Creatinine 165.0 Normal (applies to [facility] (St , Urine mg/dL non-numeric [facility]ony[facility] results) Medical, ) ID Date Data Source [id number] 01/19/2018 12:00:00 AM EDT [facility] ([facility], ) Name Value Range Interpretation Code Description Data Supporting Source(s) Document(s ) Sodium, 81 mmol/L Normal (applies to [facility] (St Urine non-numeric [facility]ony's results) Medical, ) ID Date Data Source [id number] 01/19/2018 12:00:00 AM EDT [facility] ([facility], ) Name Value Range Interpretation Description Data Sup porting Code Source(s) Document(s ) Vitamin B12 607 pg/mL Normal (applies to [facility] (S t non-numeric Dony's results) Medical, ) Folate 13.0 Normal (applies to [facility] (St (Folic ng/mL non-numeric [facility] Acid), Serum results) Medical, ) ID Date Data Source [id number] 01/19/2018 12:00:00 AM EDT [facility] ([facility] [place] [...] Serum or Plasma ID Date Data Source [id number] 01/19/2018 12:00:00 AM EDT [facility] ([facility] [place] [...] results) Medical, ) ID Date Data Source [id number] 01/19/2018 12:00:00 AM EDT [facility] ([facility], ) Name Value Range Interpretation Code Description Data Kimberly rce(s) Supporting Document(s ) ID Date Data Source [id number] 01/19/2018 12:00:00 AM EDT [facility] (St [place] [...] Normal (applies [facility] (St Abdomen to non-numeric Odny's results) Medical, ) Urine-Color Yellow Normal (applies [...] [facility], ) ID Date Data Source [id number] 12/27/2017 12:00:00 AM EDT [facility] ([facility], ) Name Value Range Interpretation Code Description Data Kimberly rce(s) Supporting Document(s ) ID Date Data Source [id number] 12/27/2017 12:00:00 AM EDT [facility] ([facility], ) Name Value Range Interpretation Description Data Sup porting Code Source(s) Document(s ) No Urine Test not Normal (applies to [facility] (St Received performed non-numeric Dony's . results) [facility], ) ID Date Data Source [id number] 12/27/2017 12:00:00 AM EDT [facility] ([facility], ) Name Value Range Interpretation Code Description Data Supporting Source(s) Document(s ) Albumin, Test not Normal (applies to [facility] (St Urine performed. non-numeric Dony's results) [facility], ) ID Date Data Source [id number] 12/27/2017 12:00:00 AM EDT [facility] ([facility], ) Name Value Range Interpretation Description Data Sup porting Code Source(s) Document(s ) Hemoglobin 9.4 % Above high normal [facility] (St A1c/Hemoglobin. Dony[facility] total in Blood [facility], ) ID Date Data Source [id number] 12/27/2017 12:00:00 AM EDT [facility] ([facility], ) Name Value Range Interpretation Code Description Data Kimberly rce(s) Supporting Document(s ) PDF Image . Normal (applies to [facility] (St non-numeric results) [facility]) ID Date Data Source [id number] 12/27/2017 12:00:00 AM EDT [facility] ( [facility] [...] low normal [facility] (St NonAfricn Am mL/min/1. [facility]'[address], ) eGFR If Africn 45 Below low normal [facility] ( St Am mL/min/1. [facility]'[address], ) Sodium 141 Normal (applies [facility] [...] for unspecified duration ID Date Data Source [id number] 12/27/2017 12:00:00 AM EDT [facility] ([facility], ) Name Value Range Interpretation Code Description Data Kimberly rce(s) Supporting Document(s ) ID Date Data Source [id number] 12/27/2017 12:00:00 AM EDT [facility] ([facility], ) Name Value Range Interpretation Description Data Sup porting Code Source(s) Document(s ) No Urine Test not Normal (applies to [facility] (St Received performed non-numeric Dony's . results) Medical, ) ID Date Data Source [id number] 12/27/2017 12:00:00 AM EDT [facility] ([facility], ) Name Value Range Interpretation Code Description Data Supporting Source(s) Document(s ) Albumin, Test not Normal (applies to [facility] (St Urine performed. non-numeric Dony's results) Medical, ) ID Date Data Source [id number] 12/27/2017 12:00:00 AM EDT [facility] ([facility], ) Name Value Range Interpretation Description Data Sup porting Code Source(s) Document(s ) Hemoglobin 9.4 % Above high normal [facility] (St A1c/Hemoglobin. Dony[facility] total in Blood [facility], ) ID Date Data Source [id number] 12/27/2017 12:00:00 AM EDT [facility] ([facility], ) Name Value Range Interpretation Code Description Data Kimberly rce(s) Supporting Document(s ) PDF Image . Normal (applies to [facility] (St non-numeric results) [facility], ) ID Date Data Source [id number] 12/27/2017 12:00:00 AM EDT [facility] (St [place] [...] low normal [facility] ( St Am mL/min/1. [facility] [...] for unspecified duration ID Date Data Source [id number] 12/27/2017 12:00:00 AM EDT [facility] ([facility], ) Name Value Range Interpretation Code Description Data Kimberly rce(s) Supporting Document(s ) ID Date Data Source [id number] 12/27/2017 12:00:00 AM EDT [facility] ([facility], ) Name Value Range Interpretation Description Data Sup porting Code Source(s) Document(s ) No Urine Test not Normal (applies to [facility] (St Received performed non-numeric Dony's . results) [facility], ) ID Date Data Source [id number] 12/27/2017 12:00:00 AM EDT [facility] ([facility], ) Name Value Range Interpretation Code Description Data Supporting Source(s) Document(s ) Albumin, Test not Normal (applies to [facility] (St Urine performed. non-numeric Dony's results) [facility], ) ID Date Data Source [id number] 12/27/2017 12:00:00 AM EDT [facility] (St [facility], ) Name Value Range Interpretation Description Data Sup porting Code Source(s) Document(s ) Hemoglobin 9.4 % Above high normal [facility] (St A1c/Hemoglobin. Dony's total in Blood [facility], ) ID Date Data Source [id number] 12/27/2017 12:00:00 AM EDT [facility] (St [facility], ) Name Value Range Interpretation Code Description Data Kimberly rce(s) Supporting Document(s ) PDF Image . Normal (applies to [facility] (St non-numeric results) [facility], ) ID Date Data Source [id number] 12/27/2017 12:00:00 AM EDT [facility] (St [place] [...] low normal [facility] ( St Am mL/min/1. [facility]'[address], ) eGFR If 39 Below low normal [facility] (St NonAfricn Am mL/min/1. [facility]' 73 [facility], ) BUN/Creatinine 21 Above high normal [facility] (St Ratio [facility] [...] for unspecified duration ID Date Data Source [id number] 12/27/2017 12:00:00 AM EDT [facility] ([facility], ) Name Value Range Interpretation Description Data Sup porting Code Source(s) Document(s ) Hemoglobin 8.5 % Above high normal [facility] (St A1c/Hemoglobin. Dony[facility] total in Blood [facility], ) ID Date Data Source [id number] 12/27/2017 12:00:00 AM EDT [facility] ([facility], ) Name Value Range Interpretation Description Data Sup porting Code Source(s) Document(s ) No Urine Test not Normal (applies to [facility] (St Received performed non-numeric Dony's . results) [facility], ) ID Date Data Source [id number] 12/27/2017 12:00:00 AM EDT [facility] ([facility], ) Name Value Range Interpretation Code Description Data Supporting Source(s) Document(s ) Albumin, Test not Normal (applies to [facility] (St Urine performed. non-numeric Dony's results) [facility], ) ID Date Data Source [id number] 12/27/2017 12:00:00 AM EDT [facility] ([facility] [place], ) Name Value Range Interpretation Description Data Sup porting Code Source(s) Document(s ) Hemoglobin 9.4 % Above high normal [facility] (St A1c/Hemoglobin. Dony's total in Blood [facility], ) ID Date Data Source [id number] 12/27/2017 12:00:00 AM EDT [facility] ([facility], ) Name Value Range Interpretation Code Description Data Kimberly rce(s) Supporting Document(s ) PDF Image . Normal (applies to [facility] (St non-numeric results) [facility], ) ID Date Data Source [id number] 12/27/2017 12:00:00 AM EDT [facility] (St [place] [...] low normal [facility] (St NonAfricn Am mL/min/1. [address], ) Creatinine 1.94 Above high normal [facility] (St [Interpretation mg/dL Dony's ] in Urine [facility], ) eGFR If Africn 45 Below low normal [facility] ( St Am mL/min/1. [facility]'s 73 [facility], ) BUN/Creatinine 21 Above high normal [facility] (St Ratio Dony's [facility], ) Sodium 141 Normal (applies [facility] (St [Moles/volume] mmol/L to non-numeric Dony's in Serum or results) [facility], ) Plasma Potassium 5.5 Above high normal [facility] (St [Mass/volume] mmol/L Doyn's in Blood [facility] [...] for unspecified duration ID Date Data Source [id number] 12/27/2017 12:00:00 AM EDT [facility] ([facility], ) Name Value Range Interpretation Code Description Data Kimberly rce(s) Supporting Document(s ) ID Date Data Source [id number] 12/27/2017 12:00:00 AM EDT [facility] ([facility], ) Name Value Range Interpretation Description Data Sup porting Code Source(s) Document(s ) No Urine Test not Normal (applies to [facility] (St Received performed non-numeric Dony's . results) [facility], ) ID Date Data Source [id number] 12/27/2017 12:00:00 AM EDT [facility] ([facility], ) Name Value Range Interpretation Code Description Data Supporting Source(s) Document(s ) Albumin, Test not Normal (applies to [facility] (St Urine performed. non-numeric Dony's results) [facility], ) ID Date Data Source [id number] 12/27/2017 12:00:00 AM EDT [facility] (St [facility], ) Name Value Range Interpretation Description Data Sup porting Code Source(s) Document(s ) Hemoglobin 9.4 % Above high normal [facility] (St A1c/Hemoglobin. Dony's total in Blood [facility], ) ID Date Data Source [id number] 12/27/2017 12:00:00 AM EDT [facility] (St [facility], ) Name Value Range Interpretation Code Description Data Kimberly rce(s) Supporting Document(s ) PDF Image . Normal (applies to [facility] (St non-numeric results) [facility], ) ID Date Data Source [id number] 12/27/2017 12:00:00 AM EDT [facility] (St [place] [...] normal [facility] (St NonAfricn Am mL/min/1. Dony's [address] [place] [address], ) eGFR If Africn 45 Below low [...] Serum or Plasma ID Date Data Source [id number] 12/27/2017 12:00:00 AM EDT [facility] ([facility]) Name Value Range Interpretation Code Description Data Kimberly rce(s) Supporting Document(s ) ID Date Data Source [id number] 12/27/2017 12:00:00 AM EDT [facility] ([facility]) Name Value Range Interpretation Description Data Sup porting Code Source(s) Document(s ) No Urine Test not Normal (applies to [facility] (St Received performed non-numeric Dony's . results) Medical, ) ID Date Data Source [id number] 12/27/2017 12:00:00 AM EDT [facility] ([facility], ) Name Value Range Interpretation Code Description Data Supporting Source(s) Document(s ) Albumin, Test not Normal (applies to [facility] (St Urine performed. non-numeric Dony's results) Medical, ) ID Date Data Source [id number] 12/27/2017 12:00:00 AM EDT [facility] ([facility], ) Name Value Range Interpretation Description Data Sup porting Code Source(s) Document(s ) Hemoglobin 9.4 % Above high normal [facility] (St A1c/Hemoglobin. Dony's total in Blood Medical, ) ID Date Data Source [id number] 12/27/2017 12:00:00 AM EDT [facility] ([facility], ) Name Value Range Interpretation Code Description Data Kimberly rce(s) Supporting Document(s ) PDF Image . Normal (applies to [facility] (St non-numeric results) [facility] Me [facility], ) ID Date Data Source [id number] 12/27/2017 12:00:00 AM EDT [facility] (St [place] [...] low normal [facility] (St NonAfricn Am mL/min/1. [facility] [address] [place] [address], ) BUN/Creatinine 21 Above high normal [facility] [...] for unspecified duration ID Date Data Source [id number] 12/27/2017 12:00:00 AM EDT [facility] ([facility], ) Name Value Range Interpretation Code Description Data Kimberly rce(s) Supporting Document(s ) ID Date Data Source [id number] 12/27/2017 12:00:00 AM EDT [facility] (St [facility], ) Name Value Range Interpretation Description Data Sup porting Code Source(s) Document(s ) No Urine Test not Normal (applies to [facility] (St Received performed non-numeric Dony's . results) [facility], ) ID Date Data Source [id number] 12/27/2017 12:00:00 AM EDT [facility] ([facility], ) Name Value Range Interpretation Code Description Data Supporting Source(s) Document(s ) Albumin, Test not Normal (applies to [facility] (St Urine performed. non-numeric Dony's results) [facility], ) ID Date Data Source [id number] 12/27/2017 12:00:00 AM EDT [facility] ([facility], ) Name Value Range Interpretation Description Data Sup porting Code Source(s) Document(s ) Hemoglobin 9.4 % Above high normal MEDGEN (St A1c/Hemoglobin. Dony's total in Blood [facility], ) ID Date Data Source [id number] 12/27/2017 12:00:00 AM EDT MEDGEN (St [facility] sandoval's [facility], ) Name Value Range Interpretation Code Description Data Kimberly rce(s) Supporting Document(s ) PDF Image . Normal (applies to MEDGEN (St non-numeric results) Dony's [facility], ) ID Date Data Source [id number] 12/27/2017 12:00:00 AM EDT MEDGEN (St Rocío [...] low normal MEDGEN (St NonAfricn Am mL/min/1. [address], ) eGFR If Africn 45 Below low normal MEDGEN ( St Am mL/min/1. [address], ) BUN/Creatinine 21 Above high normal MEDGEN (St Ratio [facility] [...] for unspecified duration ID Date Data Source [id number] 12/27/2017 12:00:00 AM EDT [facility] ([facility], ) Name Value Range Interpretation Code Description Data Kimberly rce(s) Supporting Document(s ) ID Date Data Source [id number] 12/27/2017 12:00:00 AM EDT [facility] ([facility], ) Name Value Range Interpretation Description Data Sup porting Code Source(s) Document(s ) No Urine Test not Normal (applies to MEDGEN (St Received performed non-numeric Dony's . results) Medical, ) ID Date Data Source [id number] 12/27/2017 12:00:00 AM EDT [facility] ([facility], ) Name Value Range Interpretation Code Description Data Supporting Source(s) Document(s ) Albumin, Test not Normal (applies to MEDGEN (St Urine performed. non-numeric Dony's results) Medical, ) ID Date Data Source [id number] 12/27/2017 12:00:00 AM EDT [facility] ([facility], ) Name Value Range Interpretation Description Data Sup porting Code Source(s) Document(s ) Hemoglobin 9.4 % Above high normal MEDGEN (St A1c/Hemoglobin. Dony's total in Blood Medical, ) ID Date Data Source [id number] 12/27/2017 12:00:00 AM EDT MEDGEN ([facility], ) Name Value Range Interpretation Code Description Data Kimberly rce(s) Supporting Document(s ) PDF Image . Normal (applies to MEDGEN (St non-numeric results) Dony's Me dical, ) ID Date Data Source [id number] 12/27/2017 12:00:00 AM EDT MEDGEN (St [facility]ío [...] low normal MEDGEN ( St Am mL/min/1. [facility] [...] to non-numeric Dony's in Serum or results) [facility]) Plasma Potassium 5.5 Above high normal MEDGEN (St [Mass/volume] mmol/L Dony's in Blood [facility], ) Carbon dioxide, 21 mmol/L Normal (applies MEDGEN ( St total to non-numeric Dony's [Moles/volume] results) [facility]) in Serum or Plasma Calcium 9.3 mg/dL Normal (applies MEDGEN (St [Moles/volume] to non-numeric Dony's in Urine results) [facility], ) collected for unspecified duration ID Date Data Source [id number] 12/27/2017 12:00:00 AM EDT MEDGEN (St [place] 's [facility], ) Name Value Range Interpretation Description Data Sup porting Code Source(s) Document(s ) No Urine Test not Normal (applies to MEDGEN (St Received performed non-numeric Dony's . results) [facility], ) ID Date Data Source [id number] 12/27/2017 12:00:00 AM EDT MEDGEN (St [place] 's [facility], ) Name Value Range Interpretation Code Description Data Supporting Source(s) Document(s ) Albumin, Test not Normal (applies to MEDGEN (St Urine performed. non-numeric Dony's results) [facility]) ID Date Data Source [id number] 12/27/2017 12:00:00 AM EDT MEDGEN (St [place] '[facility], ) Name Value Range Interpretation Code Description Data Kimberly rce(s) Supporting Document(s ) PDF Image . Normal (applies to MEDGEN (St non-numeric results) [facility]ony[facility]) ID Date Data Source [id number] 12/27/2017 12:00:00 AM EDT MEDGEN (St Rocío [...] low normal MEDGEN (St NonAfricn Am mL/min/1. [address], ) eGFR If Africn 45 Below low normal MEDGEN ( St Am mL/min/1. [facility] 73 [facility] [...] for unspecified duration ID Date Data Source [id number] 12/27/2017 12:00:00 AM EDT [facility] ([facility], ) Name Value Range Interpretation Code Description Data Kimberly rce(s) Supporting Document(s ) ID Date Data Source [id number] 12/27/2017 12:00:00 AM EDT [facility] ([facility], ) Name Value Range Interpretation Description Data Sup porting Code Source(s) Document(s ) No Urine Test not Normal (applies to MEDGEN (St Received performed non-numeric Dony's . results) [facility], ) ID Date Data Source [id number] 12/27/2017 12:00:00 AM EDT MEDGEN ( [place] 's [facility], ) Name Value Range Interpretation Code Description Data Supporting Source(s) Document(s ) Albumin, Test not Normal (applies to MEDGEN (St Urine performed. non-numeric Dony's results) [facility], ) ID Date Data Source [id number] 12/27/2017 12:00:00 AM EDT MEDGEN ([facility], ) Name Value Range Interpretation Description Data Sup porting Code Source(s) Document(s ) Hemoglobin 9.4 % Above high normal MEDGEN (St A1c/Hemoglobin. Dony's total in Blood [facility], ) ID Date Data Source [id number] 12/27/2017 12:00:00 AM EDT MEDGEN ( [place] 's [facility], ) Name Value Range Interpretation Code Description Data Kimberly rce(s) Supporting Document(s ) PDF Image . Normal (applies to MEDGEN (St non-numeric results) [facility] ID Date Data Source [id number] 12/27/2017 12:00:00 AM EDT MEDGEN ( Rocío [...] normal MEDGEN (St NonAfricn Am mL/min/1. Dony's [address] [place] [address], ) eGFR If Africn 45 Below low [...] for unspecified duration ID Date Data Source [id number] 12/27/2017 12:00:00 AM EDT [facility] ([facility], ) Name Value Range Interpretation Code Description Data Kimberly rce(s) Supporting Document(s ) ID Date Data Source [id number] 12/27/2017 12:00:00 AM EDT [facility] ([facility], ) Name Value Range Interpretation Description Data Sup porting Code Source(s) Document(s ) No Urine Test not Normal (applies to MEDGEN (St Received performed non-numeric Dony's . results) Medical, ) ID Date Data Source [id number] 12/27/2017 12:00:00 AM EDT [facility] ([facility], ) Name Value Range Interpretation Code Description Data Supporting Source(s) Document(s ) Albumin, Test not Normal (applies to MEDGEN (St Urine performed. non-numeric Dony's results) Medical, ) ID Date Data Source [id number] 12/27/2017 12:00:00 AM EDT [facility] ([facility], ) Name Value Range Interpretation Description Data Sup porting Code Source(s) Document(s ) Hemoglobin 9.4 % Above high normal MEDGEN (St A1c/Hemoglobin. Dony's total in Blood Medical, ) ID Date Data Source [id number] 12/27/2017 12:00:00 AM EDT [facility] ([facility]) Name Value Range Interpretation Code Description Data Kimberly rce(s) Supporting Document(s ) PDF Image . Normal (applies to MEDGEN (St non-numeric results) Dony[facility] Me [facility], ) ID Date Data Source [id number] 12/27/2017 12:00:00 AM EDT MEDGEN (St Rocío [...] low normal MEDGEN (St NonAfricn Am mL/min/1. [address]) BUN/Creatinine 21 Above high normal MEDGEN (St Ratio [facility], ) eGFR If Africn 45 Below low normal MEDGEN ( St Am mL/min/1. [address], ) Sodium 141 Normal (applies MEDGEN [...] for unspecified duration ID Date Data Source [id number] 12/27/2017 12:00:00 AM EDT MEDGEN (St ROSTR's [facility], ) Name Value Range Interpretation Code Description Data Kimberly rce(s) Supporting Document(s ) ID Date Data Source [id number] 12/27/2017 12:00:00 AM EDT MEDGEN (St Rocío [...] (St Received performed non-numeric Dony's . results) [facility]) ID Date Data Source [id number] 12/27/2017 12:00:00 AM EDT [facility] ([facility]) Name Value Range Interpretation Code Description Data Supporting Source(s) Document(s ) Albumin, Test not Normal (applies to MEDGEN (St Urine performed. non-numeric Dony's results) Medical, ) ID Date Data Source [id number] 12/27/2017 12:00:00 AM EDT MEDGEN (St [facility] [...] [facility], [facility]) Blood ID Date Data Source [id number] 12/27/2017 12:00:00 AM EDT MEDGEN (St [facility], ) ID Date Data Source [id number] 12/27/2017 12:00:00 AM EDT MEDGEN (St Rocío [...] Serum or Plasma ID Date Data Source [id number] 12/27/2017 12:00:00 AM EDT [facility] ([facility], ) Name Value Range Interpretation Code Description Data Kimberly rce(s) Supporting Document(s ) ID Date Data Source [id number] 12/27/2017 12:00:00 AM EDT [facility] ([facility]) Name Value Range Interpretation Description Data Sup porting Code Source(s) Document(s ) No Urine Test not Normal (applies to MEDGEN (St Received performed non-numeric Dony's . results) Medical, ) ID Date Data Source [id number] 12/27/2017 12:00:00 AM EDT [facility] ([facility], ) Name Value Range Interpretation Description Data Sup porting Code Source(s) Document(s ) Hemoglobin 9.4 % Above high normal MEDGEN (St A1c/Hemoglobin. Dony's total in Blood Medical, ) ID Date Data Source [id number] 12/27/2017 12:00:00 AM EDT [facility] ([facility], ) Name Value Range Interpretation Code Description Data Kimberly rce(s) Supporting Document(s ) PDF Image . Normal (applies to MEDGEN (St non-numeric results) Dony's Me dical, ) ID Date Data Source [id number] 12/27/2017 12:00:00 AM EDT MEDGEN (St Rocío [...] for unspecified duration ID Date Data Source [id number] 12/27/2017 12:00:00 AM EDT MEDGEN (St [facility] 's [facility], ) Name Value Range Interpretation Code Description Data Kimberly rce(s) Supporting Document(s ) ID Date Data Source [id number] 12/27/2017 12:00:00 AM EDT MEDGEN (St [facility] 's [facility], ) Name Value Range Interpretation Description Data Sup porting Code Source(s) Document(s ) No Urine Test not Normal (applies to MEDGEN (St Received performed non-numeric Dony's . results) [facility], ) ID Date Data Source [id number] 12/27/2017 12:00:00 AM EDT MEDGEN (St [place] 's [facility], ) Name Value Range Interpretation Code Description Data Supporting Source(s) Document(s ) Albumin, Test not Normal (applies to MEDGEN (St Urine performed. non-numeric Dony's results) [facility], ) ID Date Data Source [id number] 12/27/2017 12:00:00 AM EDT MEDGEN (St [place] 's [facility], ) Name Value Range Interpretation Description Data Sup porting Code Source(s) Document(s ) Hemoglobin 9.4 % Above high normal MEDGEN (St A1c/Hemoglobin. Dony's total in Blood [facility], ) ID Date Data Source [id number] 12/27/2017 12:00:00 AM EDT MEDGEN (St [place] 's [facility], ) Name Value Range Interpretation Code Description Data Ikmberly rce(s) Supporting Document(s ) PDF Image . Normal (applies to MEDGEN (St non-numeric results) Dony's Me [facility], ) ID Date Data Source [id number] 12/27/2017 12:00:00 AM EDT MEDGEN (St Rocío [...] low normal MEDGEN (St NonAfricn Am mL/min/1. [address], ) eGFR If Africn 45 Below low normal MEDGEN ( St Am mL/min/1. [facility]'[address], ) BUN/Creatinine 21 Above high normal [...] for unspecified duration ID Date Data Source [id number] 10/09/2017 12:00:00 AM EDT MEDGEN (St [facility] hn's [facility], ) Name Value Range Interpretation Code Description Data Kimberly rce(s) Supporting Document(s ) ID Date Data Source [id number] 10/09/2017 12:00:00 AM EDT MEDGEN (St [facility] hn's [facility], ) Name Value Range Interpretation Description Data Sup porting Code Source(s) Document(s ) Hemoglobin 11.6 % Above high normal MEDGEN (St A1c/Hemoglobin Dony's .total in Medical, ) Blood ID Date Data Source [id number] 10/09/2017 12:00:00 AM EDT MEDGEN (St Rocío sandoval's [facility], ) Name Value Range Interpretation Code Description Data Kimberly rce(s) Supporting Document(s ) PDF Image . Normal (applies to MEDGEN (St non-numeric results) Dony's Me [facility], ) ID Date Data Source [id number] 10/09/2017 12:00:00 AM EDT MEDGEN (St Rocío [...] for unspecified duration ID Date Data Source [id number] 10/09/2017 12:00:00 AM EDT [facility] ([facility], ) Name Value Range Interpretation Code Description Data Kimberly rce(s) Supporting Document(s ) ID Date Data Source [id number] 10/09/2017 12:00:00 AM EDT MEDGEN ( Rocío 's [facility], ) Name Value Range Interpretation Description Data Sup porting Code Source(s) Document(s ) Hemoglobin 11.6 % Above high normal MEDGEN (St A1c/Hemoglobin Dony's .total in Medical, ) Blood ID Date Data Source [id number] 10/09/2017 12:00:00 AM EDT MEDGEN ([facility], ) Name Value Range Interpretation Code Description Data Kimberly rce(s) Supporting Document(s ) PDF Image . Normal (applies to MEDGEN (St non-numeric results) Dony's [facility], ) ID Date Data Source [id number] 10/09/2017 12:00:00 AM EDT MEDGEN ([facility] [...] for unspecified duration ID Date Data Source [id number] 10/09/2017 12:00:00 AM EDT MEDGEN (St [facility] hn's [facility], ) Name Value Range Interpretation Code Description Data Kimberly rce(s) Supporting Document(s ) ID Date Data Source [id number] 10/09/2017 12:00:00 AM EDT MEDGEN (St [facility] hn's [facility], ) Name Value Range Interpretation Description Data Sup porting Code Source(s) Document(s ) Hemoglobin 11.6 % Above high normal MEDGEN (St A1c/Hemoglobin Dony's .total in [facility], ) Blood ID Date Data Source [id number] 10/09/2017 12:00:00 AM EDT MEDGEN (St [facility] hn's [facility], ) Name Value Range Interpretation Code Description Data Kimberly rce(s) Supporting Document(s ) PDF Image . Normal (applies to MEDGEN (St non-numeric results) Dony's Me [facility]) ID Date Data Source [id number] 10/09/2017 12:00:00 AM EDT MEDGEN (St Rocío [...] for unspecified duration ID Date Data Source [id number] 10/09/2017 12:00:00 AM EDT MEDGEN (St [place] 's [facility], ) Name Value Range Interpretation Code Description Data Kimberly rce(s) Supporting Document(s ) ID Date Data Source [id number] 10/09/2017 12:00:00 AM EDT MEDGEN (St [place] '[facility], ) Name Value Range Interpretation Description Data Sup porting Code Source(s) Document(s ) Hemoglobin 11.6 % Above high normal MEDGEN (St A1c/Hemoglobin Dony's .total in [facility], ) Blood ID Date Data Source [id number] 10/09/2017 12:00:00 AM EDT MEDGEN (St [place] '[facility], ) Name Value Range Interpretation Code Description Data Kimberly rce(s) Supporting Document(s ) PDF Image . Normal (applies to MEDGEN (St non-numeric results) Dony's Me [facility], ) ID Date Data Source [id number] 10/09/2017 12:00:00 AM EDT MEDGEN (St Rocío [...] for unspecified duration ID Date Data Source [id number] 10/09/2017 12:00:00 AM EDT MEDGEN (St Rocío [...] for unspecified duration ID Date Data Source [id number] 10/09/2017 12:00:00 AM EDT MEDGEN (St [facility] '[facility], ) Name Value Range Interpretation Code Description Data Kimberly rce(s) Supporting Document(s ) ID Date Data Source [id number] 10/09/2017 12:00:00 AM EDT MEDGEN (St [facility] hn's [facility], ) Name Value Range Interpretation Description Data Sup porting Code Source(s) Document(s ) Hemoglobin 11.6 % Above high normal MEDGEN (St A1c/Hemoglobin Dony's .total in [facility], ) Blood ID Date Data Source [id number] 10/09/2017 12:00:00 AM EDT MEDGEN (St [facility] hn's [facility], ) Name Value Range Interpretation Code Description Data Kimberly rce(s) Supporting Document(s ) ID Date Data Source [id number] 10/09/2017 12:00:00 AM EDT [facility] ([facility], ) Name Value Range Interpretation Description Data Sup porting Code Source(s) Document(s ) Hemoglobin 11.6 % Above high normal MEDGEN (St A1c/Hemoglobin Dony's .total in [facility], ) Blood ID Date Data Source [id number] 10/09/2017 12:00:00 AM EDT MEDGEN (St [facility] hn's [facility], ) Name Value Range Interpretation Code Description Data Kimberly rce(s) Supporting Document(s ) PDF Image . Normal (applies to MEDGEN (St non-numeric results) Dony's [facility]) ID Date Data Source [id number] 10/09/2017 12:00:00 AM EDT MEDGEN (St Rocío [...] Serum or Plasma ID Date Data Source [id number] 10/09/2017 12:00:00 AM EDT MEDGEN (St [facility] '[facility], ) Name Value Range Interpretation Code Description Data Kimberly rce(s) Supporting Document(s ) PDF Image . Normal (applies to MEDGEN (St non-numeric results) Dony's Me [facility], ) ID Date Data Source [id number] 10/09/2017 12:00:00 AM EDT MEDGEN (St [facility]ío [...] for unspecified duration ID Date Data Source [id number] 10/09/2017 12:00:00 AM EDT [facility] ([facility], ) Name Value Range Interpretation Code Description Data Kimberly rce(s) Supporting Document(s ) ID Date Data Source [id number] 10/09/2017 12:00:00 AM EDT MEDGEN (St [facility]ío [...] for unspecified duration ID Date Data Source [id number] 10/09/2017 12:00:00 AM EDT [facility] ([facility], ) Name Value Range Interpretation Code Description Data Kimberly rce(s) Supporting Document(s ) ID Date Data Source [id number] 10/09/2017 12:00:00 AM EDT [facility]GEN ([facility], ) Name Value Range Interpretation Description Data Sup porting Code Source(s) Document(s ) Hemoglobin 11.6 % Above high normal MEDGEN (St A1c/Hemoglobin Dony's .total in [facility], ) Blood ID Date Data Source [id number] 10/09/2017 12:00:00 AM EDT MEDGEN (St Rocío [...] for unspecified duration ID Date Data Source [id number] 10/09/2017 12:00:00 AM EDT [facility] ([facility], ) Name Value Range Interpretation Code Description Data Kimberly rce(s) Supporting Document(s ) ID Date Data Source [id number] 10/09/2017 12:00:00 AM EDT MEDGEN (St [facility] hn's [facility], ) Name Value Range Interpretation Description Data Sup porting Code Source(s) Document(s ) Hemoglobin 11.6 % Above high normal MEDGEN (St A1c/Hemoglobin Dony's .total in [facility], ) Blood ID Date Data Source [id number] 10/09/2017 12:00:00 AM EDT MEDGEN ( [place] 's [facility], ) Name Value Range Interpretation Code Description Data Kimberly rce(s) Supporting Document(s ) PDF Image . Normal (applies to MEDGEN (St non-numeric results) Dony's [facility], ) ID Date Data Source [id number] 10/09/2017 12:00:00 AM EDT MEDGEN ( Rocío [...] (applies MEDGEN ( St total to non-numeric Doyn's [Moles/volume] results) Medical, ) in Serum or Plasma Calcium 9.8 mg/dL Normal (applies MEDGEN (St [Moles/volume] to non-numeric Dony's in Urine results) [facility], ) collected for unspecified duration ID Date Data Source [id number] 10/09/2017 12:00:00 AM EDT MEDGEN (St [place] 's [facility], ) Name Value Range Interpretation Code Description Data Kimberly rce(s) Supporting Document(s ) ID Date Data Source [id number] 10/09/2017 12:00:00 AM EDT MEDGEN (St [facility], ) Name Value Range Interpretation Description Data Sup porting Code Source(s) Document(s ) Hemoglobin 11.6 % Above high normal MEDGEN (St A1c/Hemoglobin Dony's .total in [facility], ) Blood ID Date Data Source [id number] 10/09/2017 12:00:00 AM EDT MEDGEN ([facility], ) Name Value Range Interpretation Code Description Data Kimberly rce(s) Supporting Document(s ) PDF Image . Normal (applies to MEDGEN (St non-numeric results) Dony's Me [facility]) ID Date Data Source [id number] 10/09/2017 12:00:00 AM EDT MEDGEN (St [place] '[facility], ) Name Value Range Interpretation Description Data Sup porting Code Source(s) Document(s ) Glucose 321 mg/dL Above high normal MEDGEN (St [Mass/volume] Doyn's in Urine [facility] [...] for unspecified duration ID Date Data Source [id number] 10/09/2017 12:00:00 AM EDT MEDGEN (St [facility] hn's [facility], ) Name Value Range Interpretation Code Description Data Kimberly rce(s) Supporting Document(s ) ID Date Data Source [id number] 10/09/2017 12:00:00 AM EDT MEDGEN (St [facility] hn's [facility], ) Name Value Range Interpretation Description Data Sup porting Code Source(s) Document(s ) Hemoglobin 9.1 % Above high normal MEDGEN (St A1c/Hemoglobin Dnoy's .total in Medical, ) Blood Hemoglobin 9.0 [...] Medical, ) Blood ID Date Data Source [id number] 10/09/2017 12:00:00 AM EDT MEDGEN (St [facility], ) ID Date Data Source [id number] 10/09/2017 12:00:00 AM EDT MEDGEN (St Rocío [...] normal MEDGEN (St [Mass/volume] Dony's in Urine [facility]) collected for unspecified duration Creatinine 2.10 Above [...] MEDGEN (St NonAfricn Am mL/min/1. Dony's 73 [facility]) eGFR If Africn 40 Below low normal MEDGEN ( St Am mL/min/1. Dony's 73 [facility]) BUN/Creatinine 14 Normal (applies MEDGEN (S t [...] Am mL/min/1. to non-numeric Dony's 73 results) [facility]) eGFR If 55 Below low normal MEDGEN [...] low normal MEDGEN (St total Dony's [Moles/volume] [facility]) in Serum or Plasma Urea nitrogen 28 mg/dL Above high normal MEDGEN ( St [Mass/volume] Dony's in Serum or [facility], ) Plasma Glucose 320 mg/dL Above high normal MEDGEN (St [Mass/volume] Dony's in Urine [facility]) collected for unspecified duration eGFR If 57 [...] Serum or Plasma ID Date Data Source [id number] 10/09/2017 12:00:00 AM EDT [facility] ([facility], ) Name Value Range Interpretation Code Description Data Kimberly rce(s) Supporting Document(s ) ID Date Data Source [id number] 10/09/2017 12:00:00 AM EDT [facility]GEN ([facility], ) Name Value Range Interpretation Description Data Sup porting Code Source(s) Document(s ) Hemoglobin 11.6 % Above high normal MEDGEN (St A1c/Hemoglobin Dony's .total in Medical, ) Blood ID Date Data Source [id number] 10/09/2017 12:00:00 AM EDT [facility]GEN ([facility], ) Name Value Range Interpretation Code Description Data Kimberly rce(s) Supporting Document(s ) PDF Image . Normal (applies to MEDGEN (St non-numeric results) [facility], ) ID Date Data Source [id number] 10/09/2017 12:00:00 AM EDT MEDGEN ([facility] [...] for unspecified duration ID Date Data Source [id number] 10/09/2017 12:00:00 AM EDT MEDGEN ( [facility], ) Name Value Range Interpretation Code Description Data Kimberly rce(s) Supporting Document(s ) ID Date Data Source [id number] 10/09/2017 12:00:00 AM EDT MEDGEN ([facility], ) Name Value Range Interpretation Description Data Sup porting Code Source(s) Document(s ) Hemoglobin 11.6 % Above high normal MEDGEN (St A1c/Hemoglobin Dony[facility] .total in [facility], ) Blood ID Date Data Source [id number] 10/09/2017 12:00:00 AM EDT MEDGEN ([facility], ) Name Value Range Interpretation Code Description Data Kimberly rce(s) Supporting Document(s ) PDF Image . Normal (applies to MEDGEN (St non-numeric results) [facility], ) ID Date Data Source [id number] 10/09/2017 12:00:00 AM EDT MEDGEN ([facility] [...] for unspecified duration ID Date Data Source [id number] 10/09/2017 12:00:00 AM EDT MEDGEN ([facility], ) Name Value Range Interpretation Code Description Data Kimberly rce(s) Supporting Document(s ) ID Date Data Source [id number] 10/09/2017 12:00:00 AM EDT MEDGEN ([facility], ) Name Value Range Interpretation Description Data Sup porting Code Source(s) Document(s ) Hemoglobin 11.6 % Above high normal MEDGEN (St A1c/Hemoglobin Dony[facility] .total in [facility], ) Blood ID Date Data Source [id number] 10/09/2017 12:00:00 AM EDT MEDGEN ([facility], ) Name Value Range Interpretation Code Description Data Kimberly rce(s) Supporting Document(s ) PDF Image . Normal (applies to MEDGEN (St non-numeric results) [facility], ) ID Date Data Source [id number] 10/09/2017 12:00:00 AM EDT MEDGEN (St [facility] [...] 12:00:00 AM ever smoked smoked [facility], [facility]) Smoking 10/17/2019 active tobacco completed active tobacco MEDGEN (St 12:00:00 AM use smokes 1 use smokes 1 ppd [facility], EDT ppd for 40 for 40 years ) years alcohol; alcohol; stopped stopped drinking 3 years drinking 3 ago drugs; denies years ago drugs; denies Smoking 10/17/2019 Unknown if completed Unknown if ever MEDGEN (S t 12:00:00 AM ever smoked smoked [facility], [facility]) Caffeine Use 07/13/2018 completed NEXTGEN (Pasquale nt Details 12:00:00 AM [facility]) Smoking 07/13/2018 Unknown if completed Unknown if ever NEXTGEN ( [facility] 12:00:00 AM ever smoked smoked [facility]) Smoking 06/15/2018 Daily Smoker completed Daily Smoker [...] Alcohol Use completed NEXTGEN (Ismael t Details [facility]) Vital Signs ID Date Data Source UNK Name Value Range Interpretation Code Description Data Source(s) Heart rate 78 /min 78 /min MEDGEN ([facility] , ) Respiratory rate 14 /min 14 /min MEDGEN ( [facility]) Diastolic blood 90 mm[Hg] 90 mm[Hg] MEDGEN (S t pressure [facility]) Systolic blood 180 mm[Hg] 180 mm[Hg] MEDGEN ([facility]) Body weight 149 lb 149 lb MEDGEN ([facility]) Heart rate 78 /min 78 /min MEDGEN ([facility]) Respiratory rate 14 /min 14 /min MEDGEN ( [facility]) Diastolic blood 90 mm[Hg] 90 mm[Hg] MEDGEN (S t pressure [facility] , ) Systolic blood 180 mm[Hg] 180 mm[Hg] MEDGEN ([facility] , ) Body weight 149 lb 149 lb MEDGEN ([facility] , ) Heart rate 68 /min 68 /min MEDGEN ([facility] , ) Respiratory rate 16 /min 16 /min MEDGEN ( [facility] , ) Inhaled oxygen 100 % 100 % MEDGEN ([facility], ) Diastolic blood 91 mm[Hg] 91 mm[Hg] MEDGEN (S t pressure [facility] , ) Systolic blood 172 mm[Hg] 172 mm[Hg] MEDGEN ([facility] , ) Body weight 149 lb 149 lb MEDGEN ([facility] , ) Heart rate 68 /min 68 /min MEDGEN ([place] , ) Respiratory rate 16 /min 16 /min MEDGEN ( [facility] , ) Inhaled oxygen 100 % 100 % MEDGEN ([facility], ) Diastolic blood 91 mm[Hg] 91 mm[Hg] MEDGEN (S t pressure [facility] , ) Systolic blood 172 mm[Hg] 172 mm[Hg] MEDGEN ([facility] , ) Body weight 149 lb 149 lb MEDGEN ([facility] , ) Heart rate 68 /min 68 /min MEDGEN ([facility] , ) Respiratory rate 16 /min 16 /min MEDGEN ( [facility] , ) Inhaled oxygen 100 % 100 % MEDGEN ([facility], ) Diastolic blood 91 mm[Hg] 91 mm[Hg] MEDGEN (S t pressure [facility] , ) Systolic blood 172 mm[Hg] 172 mm[Hg] MEDGEN ([facility] , ) Body weight 149 lb 149 lb MEDGEN ([facility] , ) Heart rate 68 /min 68 /min MEDGEN ([facility] , ) Respiratory rate 16 /min 16 /min MEDGEN ( [facility] , ) Inhaled oxygen 100 % 100 % MEDGEN ([facility], ) Diastolic blood 91 mm[Hg] 91 mm[Hg] [...] rate 12 /min 12 /min MEDGEN ( [place] , ) Inhaled oxygen 98 % 98 % MEDGEN (St concentration [facility], ) Diastolic blood 100 mm[Hg] 100 mm[Hg] MEDGEN (S t pressure [facility] , ) Systolic blood 200 mm[Hg] 200 mm[Hg] MEDGEN (St pressure [facility] , ) Body weight 160 lb 160 lb MEDGEN ([facility] , ) Diastolic blood 100 mm[Hg] 100 mm[Hg] MEDGEN (S t pressure [facility] , ) Systolic blood 200 mm[Hg] 200 mm[Hg] MEDGEN ([facility] [...] oxygen 98 % 98 % MEDGEN ([facility], ) Heart rate 70 /min 70 /min MEDGEN ([facility] , ) Respiratory rate 12 /min 12 /min MEDGEN ( [facility] , ) Inhaled oxygen 98 % 98 % MEDGEN (St concentration [facility], ) Diastolic blood 100 mm[Hg] 100 mm[Hg] MEDGEN (S t pressure [facility] , ) Systolic blood 200 mm[Hg] 200 mm[Hg] MEDGEN ([facility] , ) Body weight 160 lb 160 lb MEDGEN ([place] , ) Heart rate 70 /min 70 /min MEDGEN ([facility] , ) Respiratory rate 12 /min 12 /min MEDGEN ( [place] , ) Inhaled oxygen 98 % 98 % MEDGEN (St concentration [facility], ) Diastolic blood 100 mm[Hg] 100 mm[Hg] MEDGEN (S t pressure [facility] , ) Systolic blood 200 mm[Hg] 200 mm[Hg] MEDGEN ([facility] , ) Body weight 160 lb 160 lb MEDGEN ([facility]) Heart rate 70 /min 70 /min MEDGEN ([facility] , ) Respiratory rate 12 /min 12 /min MEDGEN ( [facility] , ) Inhaled oxygen 98 % 98 % MEDGEN ([facility], ) Diastolic blood 100 mm[Hg] 100 mm[Hg] MEDGEN (S t pressure [facility] , ) Systolic blood 200 mm[Hg] 200 mm[Hg] MEDGEN ([facility] , ) Body weight 160 lb 160 lb MEDGEN ([facility]) Heart rate 70 /min 70 /min MEDGEN ([facility] , ) Respiratory rate 12 /min 12 /min MEDGEN ( [facility]) Inhaled oxygen 98 % 98 % MEDGEN ([facility], ) Diastolic blood 100 mm[Hg] 100 mm[Hg] MEDGEN (S t pressure [facility] , ) Systolic blood 200 mm[Hg] 200 mm[Hg] MEDGEN ([facility] , ) Body weight 160 lb 160 lb MEDGEN ([facility]) Heart rate 70 /min 70 /min MEDGEN ([facility]) Respiratory rate 12 /min 12 /min MEDGEN ( [facility] , ) Inhaled oxygen 98 % 98 % MEDGEN ([facility], ) Diastolic blood 100 mm[Hg] 100 mm[Hg] MEDGEN (S t pressure [facility] , ) Systolic blood 200 mm[Hg] 200 mm[Hg] MEDGEN ([facility] , ) Body weight 160 lb 160 lb MEDGEN ([facility]) Heart rate 70 /min 70 /min MEDGEN ([facility]) Respiratory rate 12 /min 12 /min MEDGEN ( [facility] , ) Diastolic blood 100 mm[Hg] 100 mm[Hg] MEDGEN (S t pressure [facility] , ) Systolic blood 200 mm[Hg] 200 mm[Hg] MEDGEN ([facility] , ) Heart rate 70 /min 70 /min MEDGEN ([facility] , ) Respiratory rate 12 /min 12 /min MEDGEN ( [facility] , ) Inhaled oxygen 98 % 98 % MEDGEN ([facility], ) Diastolic blood 100 mm[Hg] 100 mm[Hg] MEDGEN (S t pressure [facility] , ) Systolic blood 200 mm[Hg] 200 mm[Hg] MEDGEN (St [facility] , ) Body weight 160 lb 160 lb MEDGEN ([facility] , ) Heart rate 70 /min 70 /min MEDGEN ([facility] , ) Respiratory rate 12 /min 12 /min MEDGEN ( [facility] , ) Inhaled oxygen 98 % 98 % MEDGEN ([facility], ) Diastolic blood 100 mm[Hg] 100 mm[Hg] MEDGEN (S t pressure [facility] , ) Systolic blood 200 mm[Hg] 200 mm[Hg] MEDGEN ([facility] , ) Body weight 160 lb 160 lb MEDGEN ([facility] , ) Heart rate 70 /min 70 /min MEDGEN ([place] , ) Respiratory rate 12 /min 12 /min MEDGEN ( [facility] , ) Diastolic blood 100 mm[Hg] 100 mm[Hg] MEDGEN (S t pressure [facility] , ) Systolic blood 200 mm[Hg] 200 mm[Hg] MEDGEN ([facility] , ) Heart rate 68 /min 68 /min MEDGEN ([facility]) Inhaled oxygen 96 % 96 % MEDGEN ([facility], ) Body mass index 25.2 kg/m2 25.2 kg/m2 MEDGEN (S t (BMI) [Ratio] [facility], ) Diastolic blood 90 mm[Hg] 90 mm[Hg] MEDGEN (S t pressure [facility] , ) Systolic blood 154 mm[Hg] 154 mm[Hg] MEDGEN ([facility] , ) Body weight 156 lb 156 lb MEDGEN ([facility]) Body height 66 in 66 in MEDGEN ([facility]) Heart rate 68 /min 68 /min MEDGEN ([facility]) Inhaled oxygen 96 % 96 % MEDGEN ([facility], ) Body mass index 25.2 kg/m2 25.2 kg/m2 MEDGEN (S t (BMI) [Ratio] [facility], ) Diastolic blood 90 mm[Hg] 90 mm[Hg] MEDGEN (S t pressure [facility]) Systolic blood 154 mm[Hg] 154 mm[Hg] MEDGEN ([facility]) Body weight 156 lb 156 lb MEDGEN ([facility]) Body height 66 in 66 in MEDGEN ([facility]) Heart rate 68 /min 68 /min MEDGEN ([facility]) Inhaled oxygen 96 % 96 % MEDGEN ([facility], ) Body mass index 25.2 kg/m2 25.2 kg/m2 MEDGEN (S t (BMI) [Ratio] [facility], ) Diastolic blood 90 mm[Hg] 90 mm[Hg] MEDGEN (S t pressure [facility]) Systolic blood 154 mm[Hg] 154 mm[Hg] MEDGEN ([facility]) Body weight 156 lb 156 lb MEDGEN ([facility]) Body height 66 in 66 in MEDGEN ([facility]) Heart rate 68 /min 68 /min MEDGEN ([facility]) Inhaled oxygen 96 % 96 % MEDGEN ([facility], ) Body mass index 25.2 kg/m2 25.2 kg/m2 MEDGEN (S t (BMI) [Ratio] [facility], ) Diastolic blood 90 mm[Hg] 90 mm[Hg] MEDGEN (S t pressure [facility]) Systolic blood 154 mm[Hg] 154 mm[Hg] MEDGEN ([facility]) Body weight 156 lb 156 lb MEDGEN ([facility]) Body height 66 in 66 in MEDGEN ([facility]) Heart rate 68 /min 68 /min MEDGEN ([facility]) Inhaled oxygen 96 % 96 % MEDGEN ([facility]) Body mass index 25.2 kg/m2 25.2 kg/m2 MEDGEN (S t (BMI) [Ratio] [facility], ) Diastolic blood 90 mm[Hg] 90 mm[Hg] MEDGEN (S t pressure [facility]) Systolic blood 154 mm[Hg] 154 mm[Hg] MEDGEN ([facility] , ) Body weight 156 lb 156 lb MEDGEN ([facility]) Body height 66 in 66 in MEDGEN ([facility]) Heart rate 68 /min 68 /min MEDGEN ([facility]) Inhaled oxygen 96 % 96 % MEDGEN ([facility], ) Body mass index 25.2 kg/m2 25.2 kg/m2 MEDGEN (S t (BMI) [Ratio] [facility], ) Diastolic blood 90 mm[Hg] 90 mm[Hg] MEDGEN (S t pressure [facility]) Systolic blood 154 mm[Hg] 154 mm[Hg] MEDGEN ([facility]) Body weight 156 lb 156 lb MEDGEN ([facility]) Body height 66 in 66 in MEDGEN ([facility]) Heart rate 68 /min 68 /min MEDGEN ([facility]) Inhaled oxygen 96 % 96 % MEDGEN ([facility], ) Body mass index 25.2 kg/m2 25.2 kg/m2 MEDGEN (S t (BMI) [Ratio] [facility], ) Diastolic blood 90 mm[Hg] 90 mm[Hg] MEDGEN (S t pressure [facility] , ) Systolic blood 154 mm[Hg] 154 mm[Hg] MEDGEN ([facility] , ) Body weight 156 lb 156 lb MEDGEN ([facility]) Body height 66 in 66 in MEDGEN ([facility]) Heart rate 68 /min 68 /min MEDGEN ([facility]) Inhaled oxygen 96 % 96 % MEDGEN ([facility], ) Body mass index 25.2 kg/m2 25.2 kg/m2 MEDGEN (S t (BMI) [Ratio] [facility], ) Diastolic blood 90 mm[Hg] 90 mm[Hg] MEDGEN (S t pressure [facility]) Systolic blood 154 mm[Hg] 154 mm[Hg] MEDGEN ([facility]) Body weight 156 lb 156 lb MEDGEN ([facility]) Body height 66 in 66 in MEDGEN ([facility]) Heart rate 68 /min 68 /min MEDGEN ([facility]) Inhaled oxygen 96 % 96 % MEDGEN ([facility], ) Body mass index 25.2 kg/m2 25.2 kg/m2 MEDGEN (S t (BMI) [Ratio] [facility], ) Diastolic blood 90 mm[Hg] 90 mm[Hg] MEDGEN (S t pressure [facility]) Systolic blood 154 mm[Hg] 154 mm[Hg] MEDGEN ([facility]) Body weight 156 lb 156 lb MEDGEN ([facility]) Body height 66 in 66 in MEDGEN ([facility]) Heart rate 68 /min 68 /min MEDGEN ([facility]) Inhaled oxygen 96 % 96 % MEDGEN ([facility]) Body mass index 25.2 kg/m2 25.2 kg/m2 MEDGEN (S t (BMI) [Ratio] [facility]) Diastolic blood 90 mm[Hg] 90 mm[Hg] MEDGEN (S t pressure [facility]) Systolic blood 154 mm[Hg] 154 mm[Hg] MEDGEN ([facility]) Body weight 156 lb 156 lb MEDGEN ([facility]) Body height 66 in 66 in MEDGEN ([facility]) Heart rate 68 /min 68 /min MEDGEN ([facility]) Inhaled oxygen 96 % 96 % MEDGEN ([facility]) Body mass index 25.2 kg/m2 25.2 kg/m2 MEDGEN (S t (BMI) [Ratio] [facility], ) Diastolic blood 90 mm[Hg] 90 mm[Hg] MEDGEN (S t pressure [facility]) Systolic blood 154 mm[Hg] 154 mm[Hg] MEDGEN (St [facility] , ) Body weight 156 lb 156 lb MEDGEN ([facility]) Body height 66 in 66 in MEDGEN ([facility]) Heart rate 68 /min 68 /min MEDGEN ([facility]) Inhaled oxygen 96 % 96 % MEDGEN ([facility], ) Body mass index 25.2 kg/m2 25.2 kg/m2 MEDGEN (S t (BMI) [Ratio] [facility], ) Diastolic blood 90 mm[Hg] 90 mm[Hg] MEDGEN (S t pressure [facility]) Systolic blood 154 mm[Hg] 154 mm[Hg] MEDGEN ([facility]) Body weight 156 lb 156 lb MEDGEN ([facility]) Body height 66 in 66 in MEDGEN ([facility]) Heart rate 68 /min 68 /min MEDGEN ([facility]) Inhaled oxygen 96 % 96 % MEDGEN ([facility], ) Body mass index 25.2 kg/m2 25.2 kg/m2 MEDGEN (S t (BMI) [Ratio] [facility], ) Diastolic blood 90 mm[Hg] 90 mm[Hg] MEDGEN (S t pressure [facility] , ) Systolic blood 154 mm[Hg] 154 mm[Hg] MEDGEN ([facility]) Body weight 156 lb 156 lb MEDGEN ([facility]) Body height 66 in 66 in [facility]) Body temperature 36.673440 36.201942 [facility] Respiratory rate 18 /min 18 /min [facility] Heart rate 80 /min 80 /min [facility] Diastolic blood 113 mm[Hg] 113 mm[Hg] [facility] Systolic blood 227 mm[Hg] 227 mm[Hg] [facility] Body weight 71.274426 71.301396 kg [facility] hs Measured kg [facility] Body temperature 36.123872 36.481128 [facility] Respiratory rate 18 /min 18 /min [facility] Heart rate 77 /min 77 /min [facility] Diastolic blood 109 mm[Hg] 109 mm[Hg] [facility] Systolic blood 209 mm[Hg] 209 mm[Hg] [facility] Body temperature 36.135026 36.225824 [facility] Respiratory rate 18 /min 18 /min [facility] Heart rate 81 /min 81 /min [facility] Diastolic blood 101 mm[Hg] 101 mm[Hg] [facility] [place] Systolic blood 188 mm[Hg] 188 mm[Hg] [facility] Body temperature 36.521391 36.002127 [facility] Respiratory rate 20 /min 20 /min [facility] Heart rate 74 /min 74 /min [facility] Diastolic blood 97 mm[Hg] 97 mm[Hg] [facility] [place] Systolic blood 165 mm[Hg] 165 mm[Hg] [facility] Body weight 71.750070 71.676212 [facility] Measured [facility] Body temperature 37.913101 37.766409 [facility] Respiratory rate 20 /min 20 /min [facility] Heart rate 69 /min 69 /min [facility] Diastolic blood 100 mm[Hg] 100 mm[Hg] [facility] [place] Systolic blood 163 mm[Hg] 163 mm[Hg] [facility] Body temperature 36.009150 36.491856 [facility] Respiratory rate 18 /min 18 /min [facility] Heart rate 71 /min 71 /min [facility] Diastolic blood 98 mm[Hg] 98 mm[Hg] [facility] Systolic blood 179 mm[Hg] 179 mm[Hg] [facility] Body weight 70.637724 70.563473 kg [facility] hs Measured kg [facility] Center Body height 167.355715 167.217919 cm [facility] Body mass index 24.91 kg/m2 24.91 kg/m2 [facility] osep (BMI) [Ratio] [facility] ter Body temperature 36.321848 36.621913 [facility] Respiratory rate 20 /min 20 /min [facility] Heart rate 75 /min 75 /min [facility] Diastolic blood 84 mm[Hg] 84 mm[Hg] [facility] pressure [facility] Systolic blood 143 mm[Hg] 143 mm[Hg] [facility] Center Heart rate 76 /min 76 /min [facility] Diastolic blood 91 mm[Hg] 91 mm[Hg] [facility] Center Systolic blood 166 mm[Hg] 166 mm[Hg] [facility] Center Oxygen saturation 97 % 97 % [facility] blood [facility] by Pulse oximetry Body temperature 36.143220 36.157346 [facility] Respiratory rate 18 /min 18 /min [facility] Heart rate 78 /min 78 /min [facility] Diastolic blood 90 mm[Hg] 90 mm[Hg] [facility] Center Systolic blood 164 mm[Hg] 164 mm[Hg] [facility] Oxygen saturation 98 % 98 % [facility] blood [facility] by Pulse oximetry Body temperature 36.785491 36.392765 [facility] Respiratory rate 17 /min 17 /min [facility] Oxygen saturation 99 % 99 % [facility] blood [facility] by Pulse oximetry Body weight 68.425349 68.781140 kg [facility] Measured kg Medical Center Oxygen saturation 98 % 98 % [facility] Center by Pulse oximetry Body height 167.001041 167.919956 cm [facility] Body mass index 24.1 kg/m2 24.1 kg/m2 [facility] (BMI) [Ratio] Medical [facility] Heart rate 84 /min 84 /min MEDGEN ([facility]) Respiratory rate 14 /min 14 /min MEDGEN ( [facility]) Body mass index 24.2 kg/m2 24.2 kg/m2 MEDGEN (S t (BMI) [Ratio] [facility]) Diastolic blood 90 mm[Hg] 90 mm[Hg] MEDGEN (S t pressure [facility]) Systolic blood 160 mm[Hg] 160 mm[Hg] MEDGEN ([facility]) Body weight 150 lb 150 lb MEDGEN ([facility]) Body height 66 in 66 in MEDGEN ([facility]) Heart rate 84 /min 84 /min MEDGEN ([facility] , ) Respiratory rate 14 /min 14 /min MEDGEN ( [facility] , ) Body mass index 24.2 kg/m2 24.2 kg/m2 MEDGEN (S t (BMI) [Ratio] [facility], ) Diastolic blood 90 mm[Hg] 90 mm[Hg] MEDGEN (S t pressure [facility] , ) Systolic blood 160 mm[Hg] 160 mm[Hg] MEDGEN ([facility] , ) Body weight 150 lb 150 lb MEDGEN ([facility]) Body height 66 in 66 in MEDGEN ([facility]) Heart rate 84 /min 84 /min MEDGEN ([facility] , ) Respiratory rate 14 /min 14 /min MEDGEN ( [facility] , ) Body mass index 24.2 kg/m2 24.2 kg/m2 MEDGEN (S t (BMI) [Ratio] [facility], ) Diastolic blood 90 mm[Hg] 90 mm[Hg] MEDGEN (S t pressure [facility] , ) Systolic blood 160 mm[Hg] 160 mm[Hg] MEDGEN ([facility] , ) Body weight 150 lb 150 lb MEDGEN ([facility]) Body height 66 in 66 in MEDGEN ([facility]) Heart rate 84 /min 84 /min MEDGEN ([facility] , ) Respiratory rate 14 /min 14 /min MEDGEN ( [facility] , ) Body mass index 24.2 kg/m2 24.2 kg/m2 MEDGEN (S t (BMI) [Ratio] [facility], ) Diastolic blood 90 mm[Hg] 90 mm[Hg] MEDGEN (S t pressure [facility] , ) Systolic blood 160 mm[Hg] 160 mm[Hg] MEDGEN ([facility] , ) Body weight 150 lb 150 lb MEDGEN ([facility]) Body height 66 in 66 in MEDGEN ([facility]) Heart rate 84 /min 84 /min MEDGEN ([facility]) Respiratory rate 14 /min 14 /min MEDGEN ( [facility] , ) Body mass index 24.2 kg/m2 24.2 kg/m2 MEDGEN (S t (BMI) [Ratio] [facility], ) Diastolic blood 90 mm[Hg] 90 mm[Hg] MEDGEN (S t pressure [facility] , ) Systolic blood 160 mm[Hg] 160 mm[Hg] MEDGEN (St pressure [facility] , ) Body weight 150 lb 150 lb MEDGEN ([facility] , ) Body height 66 in 66 in MEDGEN ([facility] , ) Heart rate 84 /min 84 /min MEDGEN ([place] , ) Respiratory rate 14 /min 14 /min MEDGEN ( [facility] , ) Body mass index 24.2 kg/m2 24.2 kg/m2 MEDGEN (S t (BMI) [Ratio] [facility], ) Diastolic blood 90 mm[Hg] 90 mm[Hg] MEDGEN (S t pressure [facility] , ) Systolic blood 160 mm[Hg] 160 mm[Hg] MEDGEN (St pressure [facility] , ) Body weight 150 lb 150 lb MEDGEN ([facility] , ) Body height 66 in 66 in MEDGEN ([facility] , ) Heart rate 84 /min 84 /min MEDGEN ([facility] , ) Respiratory rate 14 /min 14 /min MEDGEN ( [facility] , ) Body mass index 24.2 kg/m2 24.2 kg/m2 MEDGEN (S t (BMI) [Ratio] [facility], ) Diastolic blood 90 mm[Hg] 90 mm[Hg] MEDGEN (S t pressure [facility] , ) Systolic blood 160 mm[Hg] 160 mm[Hg] MEDGEN (St pressure [facility] , ) Body weight 150 lb 150 lb MEDGEN ([facility] , ) Body height 66 in 66 in MEDGEN ([facility] , ) Heart rate 84 /min 84 /min MEDGEN ([place] , ) Respiratory rate 14 /min 14 /min MEDGEN ( [place] , ) Body mass index 24.2 kg/m2 24.2 kg/m2 MEDGEN (S t (BMI) [Ratio] [facility], ) Diastolic blood 90 mm[Hg] 90 mm[Hg] MEDGEN (S t pressure [facility] , ) Systolic blood 160 mm[Hg] 160 mm[Hg] MEDGEN ([facility] , ) Body weight 150 lb 150 lb MEDGEN ([facility] , ) Body height 66 in 66 in MEDGEN ([facility]) Heart rate 84 /min 84 /min MEDGEN ([facility] , ) Respiratory rate 14 /min 14 /min MEDGEN ( [facility] , ) Body mass index 24.2 kg/m2 24.2 kg/m2 MEDGEN (S t (BMI) [Ratio] [facility], ) Diastolic blood 90 mm[Hg] 90 mm[Hg] MEDGEN (S t pressure [facility] , ) Systolic blood 160 mm[Hg] 160 mm[Hg] MEDGEN ([facility] , ) Body weight 150 lb 150 lb MEDGEN ([facility]) Body height 66 in 66 in MEDGEN ([facility]) Heart rate 84 /min 84 /min MEDGEN ([facility]) Respiratory rate 14 /min 14 /min MEDGEN ( [facility]) Body mass index 24.2 kg/m2 24.2 kg/m2 MEDGEN (S t (BMI) [Ratio] [facility], ) Diastolic blood 90 mm[Hg] 90 mm[Hg] MEDGEN (S t pressure [facility] , ) Systolic blood 160 mm[Hg] 160 mm[Hg] MEDGEN ([facility] , ) Body weight 150 lb 150 lb MEDGEN ([facility]) Body height 66 in 66 in MEDGEN ([facility]) Heart rate 84 /min 84 /min MEDGEN ([facility] , ) Respiratory rate 14 /min 14 /min MEDGEN ( [facility] , ) Body mass index 24.2 kg/m2 24.2 kg/m2 MEDGEN (S t (BMI) [Ratio] [facility], ) Diastolic blood 90 mm[Hg] 90 mm[Hg] MEDGEN (S t pressure [facility] , ) Systolic blood 160 mm[Hg] 160 mm[Hg] MEDGEN (St pressure [facility] , ) Body weight 150 lb 150 lb MEDGEN ([facility] , ) Body height 66 in 66 in MEDGEN ([facility] , ) Heart rate 84 /min 84 /min MEDGEN ([facility] , ) Respiratory rate 14 /min 14 /min MEDGEN ( [facility] , ) Body mass index 24.2 kg/m2 24.2 kg/m2 MEDGEN (S t (BMI) [Ratio] [facility], ) Diastolic blood 90 mm[Hg] 90 mm[Hg] MEDGEN (S t pressure [facility] , ) Systolic blood 160 mm[Hg] 160 mm[Hg] MEDGEN ([facility] , ) Body weight 150 lb 150 lb MEDGEN ([facility] , ) Body height 66 in 66 in MEDGEN ([facility] , ) Heart rate 84 /min 84 /min MEDGEN ([place] , ) Respiratory rate 14 /min 14 /min MEDGEN ( [facility] , ) Body mass index 24.2 kg/m2 24.2 kg/m2 MEDGEN (S t (BMI) [Ratio] [facility], ) Diastolic blood 90 mm[Hg] 90 mm[Hg] MEDGEN (S t pressure [facility] , ) Systolic blood 160 mm[Hg] 160 mm[Hg] MEDGEN ([facility] , ) Body weight 150 lb 150 lb MEDGEN ([facility] , ) Body height 66 in 66 in MEDGEN ([facility]) Heart rate 84 /min 84 /min MEDGEN ([facility] , ) Respiratory rate 14 /min 14 /min MEDGEN ( [facility] , ) Body mass index 24.2 kg/m2 24.2 kg/m2 MEDGEN (S t (BMI) [Ratio] [facility], ) Diastolic blood 90 mm[Hg] 90 mm[Hg] MEDGEN (S t pressure [facility] , ) Systolic blood 160 mm[Hg] 160 mm[Hg] MEDGEN (St pressure [facility]) Body weight 150 lb 150 lb MEDGEN ([facility]) Body height 66 in 66 in MEDGEN ([facility]) Heart rate 84 /min 84 /min MEDGEN ([facility]) Respiratory rate 14 /min 14 /min MEDGEN ( [facility]) Body mass index 24.2 kg/m2 24.2 kg/m2 MEDGEN (S t (BMI) [Ratio] [facility]) Diastolic blood 90 mm[Hg] 90 mm[Hg] MEDGEN (S t pressure [facility]) Systolic blood 160 mm[Hg] 160 mm[Hg] MEDGEN ([facility]) Body weight 150 lb 150 lb MEDGEN ([facility]) Body height 66 in 66 in MEDGEN ([facility]) Heart rate 78 /min 78 /min MEDGEN ([facility]) Respiratory rate 12 /min 12 /min MEDGEN ( [facility]) Body temperature 98 F 98 F MEDGEN ( [facility]) Inhaled oxygen 100 % 100 % MEDGEN ([facility]) Body mass index 20.8 kg/m2 20.8 kg/m2 MEDGEN (S t (BMI) [Ratio] [facility]) Diastolic blood 84 mm[Hg] 84 mm[Hg] MEDGEN (S t pressure [facility]) Systolic blood 184 mm[Hg] 184 mm[Hg] MEDGEN ([facility]) Body weight 137 lb 137 lb MEDGEN ([facility]) Body height 68 in 68 in MEDGEN ([facility]) Heart rate 78 /min 78 /min MEDGEN ([facility]) Respiratory rate 12 /min 12 /min MEDGEN ( [facility]) Body temperature 98 F 98 F MEDGEN ( [facility]) Inhaled oxygen 100 % 100 % MEDGEN ([facility]) Body mass index 20.8 kg/m2 20.8 kg/m2 MEDGEN (S t (BMI) [Ratio] [facility]) Diastolic blood 84 mm[Hg] 84 mm[Hg] MEDGEN (S t pressure [facility]) Systolic blood 184 mm[Hg] 184 mm[Hg] MEDGEN ([facility]) Body weight 137 lb 137 lb MEDGEN ([facility]) Body height 68 in 68 in MEDGEN ([facility]) Heart rate 78 /min 78 /min MEDGEN ([facility]) Respiratory rate 12 /min 12 /min MEDGEN ( [facility]) Body temperature 98 F 98 F MEDGEN ( [facility]) Inhaled oxygen 100 % 100 % MEDGEN ([facility], ) Body mass index 20.8 kg/m2 20.8 kg/m2 MEDGEN (S t (BMI) [Ratio] [facility], ) Diastolic blood 84 mm[Hg] 84 mm[Hg] MEDGEN (S t pressure [facility]) Systolic blood 184 mm[Hg] 184 mm[Hg] MEDGEN ([facility]) Body weight 137 lb 137 lb MEDGEN ([facility]) Body height 68 in 68 in MEDGEN ([facility]) Heart rate 78 /min 78 /min MEDGEN ([facility]) Respiratory rate 12 /min 12 /min MEDGEN ( [facility]) Body temperature 98 F 98 F MEDGEN ( [facility]) Inhaled oxygen 100 % 100 % MEDGEN ([facility]) Body mass index 20.8 kg/m2 20.8 kg/m2 MEDGEN (S t (BMI) [Ratio] [facility], ) Diastolic blood 84 mm[Hg] 84 mm[Hg] MEDGEN (S t pressure [facility]) Systolic blood 184 mm[Hg] 184 mm[Hg] MEDGEN ([facility]) Body weight 137 lb 137 lb MEDGEN ([facility]) Body height 68 in 68 in MEDGEN ([facility]) Heart rate 78 /min 78 /min MEDGEN ([facility]) Respiratory rate 12 /min 12 /min MEDGEN ( [facility]) Body temperature 98 F 98 F MEDGEN ( [facility]) Inhaled oxygen 100 % 100 % MEDGEN ([facility], ) Body mass index 20.8 kg/m2 20.8 kg/m2 MEDGEN (S t (BMI) [Ratio] [facility], ) Diastolic blood 84 mm[Hg] 84 mm[Hg] MEDGEN (S t [facility]) Systolic blood 184 mm[Hg] 184 mm[Hg] MEDGEN ([facility]) Body weight 137 lb 137 lb MEDGEN ([facility]) Body height 68 in 68 in MEDGEN ([facility]) Heart rate 78 /min 78 /min MEDGEN ([facility]) Respiratory rate 12 /min 12 /min MEDGEN ( [facility]) Body temperature 98 F 98 F MEDGEN ( [facility]) Inhaled oxygen 100 % 100 % MEDGEN ([facility]) Body mass index 20.8 kg/m2 20.8 kg/m2 MEDGEN (S t (BMI) [Ratio] [facility], ) Diastolic blood 84 mm[Hg] 84 mm[Hg] MEDGEN (S t [facility]) Systolic blood 184 mm[Hg] 184 mm[Hg] MEDGEN ([facility]) Body weight 137 lb 137 lb MEDGEN ([facility]) Body height 68 in 68 in MEDGEN ([facility]) Heart rate 78 /min 78 /min MEDGEN ([facility]) Respiratory rate 12 /min 12 /min MEDGEN ( [facility]) Body temperature 98 F 98 F MEDGEN ( [facility]) Inhaled oxygen 100 % 100 % MEDGEN ([facility]) Body mass index 20.8 kg/m2 20.8 kg/m2 MEDGEN (S t (BMI) [Ratio] [facility]) Diastolic blood 84 mm[Hg] 84 mm[Hg] MEDGEN (S t [facility]) Systolic blood 184 mm[Hg] 184 mm[Hg] MEDGEN ([facility]) Body weight 137 lb 137 lb MEDGEN ([facility]) Body height 68 in 68 in MEDGEN ([facility]) Heart rate 78 /min 78 /min MEDGEN ([facility]) Respiratory rate 12 /min 12 /min MEDGEN ( [facility]) Body temperature 98 F 98 F MEDGEN ( [facility]) Inhaled oxygen 100 % 100 % MEDGEN ([facility], ) Body mass index 20.8 kg/m2 20.8 kg/m2 MEDGEN (S t (BMI) [Ratio] [facility], ) Diastolic blood 84 mm[Hg] 84 mm[Hg] MEDGEN (S t [facility]) Systolic blood 184 mm[Hg] 184 mm[Hg] MEDGEN ([facility]) Body weight 137 lb 137 lb MEDGEN ([facility]) Body height 68 in 68 in MEDGEN ([facility]) Heart rate 78 /min 78 /min MEDGEN ([facility]) Respiratory rate 12 /min 12 /min MEDGEN ( [facility]) Body temperature 98 F 98 F MEDGEN ( [facility]) Inhaled oxygen 100 % 100 % MEDGEN ([facility], ) Body mass index 20.8 kg/m2 20.8 kg/m2 MEDGEN (S t (BMI) [Ratio] [facility], ) Diastolic blood 84 mm[Hg] 84 mm[Hg] MEDGEN (S t pressure [facility]) Systolic blood 184 mm[Hg] 184 mm[Hg] MEDGEN ([facility]) Body weight 137 lb 137 lb MEDGEN ([facility]) Body height 68 in 68 in MEDGEN ([facility]) Heart rate 78 /min 78 /min MEDGEN ([facility]) Respiratory rate 12 /min 12 /min MEDGEN ( [facility]) Body temperature 98 F 98 F MEDGEN ( [facility]) Inhaled oxygen 100 % 100 % MEDGEN ([facility], ) Body mass index 20.8 kg/m2 20.8 kg/m2 MEDGEN (S t (BMI) [Ratio] [facility], ) Diastolic blood 84 mm[Hg] 84 mm[Hg] MEDGEN (S t pressure [facility]) Systolic blood 184 mm[Hg] 184 mm[Hg] MEDGEN ([facility]) Body weight 137 lb 137 lb MEDGEN ([facility]) Body height 68 in 68 in MEDGEN ([facility]) Heart rate 78 /min 78 /min MEDGEN ([facility]) Respiratory rate 12 /min 12 /min MEDGEN ( [facility]) Body temperature 98 F 98 F MEDGEN ( [facility]) Inhaled oxygen 100 % 100 % MEDGEN ([facility]) Body mass index 20.8 kg/m2 20.8 kg/m2 MEDGEN (S t (BMI) [Ratio] [facility], ) Diastolic blood 84 mm[Hg] 84 mm[Hg] MEDGEN (S t [facility]) Systolic blood 184 mm[Hg] 184 mm[Hg] MEDGEN ([facility]) Body weight 137 lb 137 lb MEDGEN ([facility]) Body height 68 in 68 in MEDGEN ([facility]) Heart rate 78 /min 78 /min MEDGEN ([facility]) Respiratory rate 12 /min 12 /min MEDGEN ( [facility]) Body temperature 98 F 98 F MEDGEN ( [facility]) Inhaled oxygen 100 % 100 % MEDGEN ([facility], ) Body mass index 20.8 kg/m2 20.8 kg/m2 MEDGEN (S t (BMI) [Ratio] [facility], ) Diastolic blood 84 mm[Hg] 84 mm[Hg] MEDGEN (S t pressure [facility]) Systolic blood 184 mm[Hg] 184 mm[Hg] MEDGEN ([facility]) Body weight 137 lb 137 lb MEDGEN ([facility]) Body height 68 in 68 in MEDGEN ([facility]) Respiratory rate 12 /min 12 /min MEDGEN ( [facility]) Body temperature 98 F 98 F MEDGEN ( [facility]) Inhaled oxygen 100 % 100 % MEDGEN ([facility]) Body mass index 20.8 kg/m2 20.8 kg/m2 MEDGEN (S t (BMI) [Ratio] [facility]) Diastolic blood 84 mm[Hg] 84 mm[Hg] MEDGEN (S t pressure [facility]) Systolic blood 184 mm[Hg] 184 mm[Hg] MEDGEN ([facility]) Body weight 137 lb 137 lb MEDGEN ([facility]) Body height 68 in 68 in MEDGEN ([facility]) Heart rate 78 /min 78 /min MEDGEN ([facility]) Heart rate 78 /min 78 /min MEDGEN ([facility]) Respiratory rate 12 /min 12 /min MEDGEN ( [facility]) Body temperature 98 F 98 F MEDGEN ( [facility]) Inhaled oxygen 100 % 100 % MEDGEN ([facility]) Body mass index 20.8 kg/m2 20.8 kg/m2 MEDGEN (S t (BMI) [Ratio] [facility]) Diastolic blood 84 mm[Hg] 84 mm[Hg] MEDGEN (S t pressure [facility]) Systolic blood 184 mm[Hg] 184 mm[Hg] MEDGEN ([facility]) Body weight 137 lb 137 lb MEDGEN ([facility]) Body height 68 in 68 in MEDGEN ([facility]) Heart rate 78 /min 78 /min MEDGEN ([facility]) Respiratory rate 12 /min 12 /min MEDGEN ( [facility]) Body temperature 98 F 98 F MEDGEN ( [facility]) Inhaled oxygen 100 % 100 % MEDGEN ([facility]) Body mass index 20.8 kg/m2 20.8 kg/m2 MEDGEN (S t (BMI) [Ratio] [facility], ) Diastolic blood 84 mm[Hg] 84 mm[Hg] MEDGEN (S t pressure [facility]) Systolic blood 184 mm[Hg] 184 mm[Hg] MEDGEN [...] -1 kg/m2 MEDGEN (S t (BMI) [Ratio] [facility], ) Diastolic blood 90 mm[Hg] 90 mm[Hg] [...] kg/m2 MEDGEN (S t (BMI) [Ratio] [facility]) Diastolic blood 90 mm[Hg] [...] Systolic blood 150 mm[Hg] 150 mm[Hg] MEDGEN ([facility]) Heart rate 88 /min 88 /min MEDGEN ([facility]) Respiratory rate 18 /min 18 /min MEDGEN ( [facility]) Body mass index -1 kg/m2 -1 kg/m2 MEDGEN (S t (BMI) [Ratio] [facility], ) Diastolic blood 90 mm[Hg] 90 mm[Hg] MEDGEN (S t pressure [facility]) Systolic blood 150 mm[Hg] 150 mm[Hg] MEDGEN ([facility]) Heart rate 78 /min 78 /min MEDGEN ([facility]) Respiratory rate 12 /min 12 /min MEDGEN ( [facility]) Body temperature 97.5 F 97.5 F MEDGEN ( [facility]) Inhaled oxygen 100 % 100 % MEDGEN ([facility], ) Body mass index 21 kg/m2 21 kg/m2 MEDGEN (S t (BMI) [Ratio] [facility], ) Diastolic blood 101 mm[Hg] 101 mm[Hg] MEDGEN (S t [facility]) Systolic blood 160 mm[Hg] 160 mm[Hg] MEDGEN ([facility]) Body weight 138 lb 138 lb MEDGEN ([facility]) Body height 68 in 68 in MEDGEN ([facility]) Heart rate 78 /min 78 /min MEDGEN ([facility]) Respiratory rate 12 /min 12 /min MEDGEN ( [facility]) Body temperature 97.5 F 97.5 F MEDGEN ( [facility]) Inhaled oxygen 100 % 100 % MEDGEN ([facility], ) Body mass index 21 kg/m2 21 kg/m2 MEDGEN (S t (BMI) [Ratio] [facility]) Diastolic blood 101 mm[Hg] 101 mm[Hg] MEDGEN (S t pressure [facility]) Systolic blood 160 mm[Hg] 160 mm[Hg] MEDGEN ([facility]) Body weight 138 lb 138 lb MEDGEN ([facility]) Body height 68 in 68 in MEDGEN ([facility]) Heart rate 78 /min 78 /min MEDGEN ([facility]) Respiratory rate 12 /min 12 /min MEDGEN ( [facility]) Body temperature 97.5 F 97.5 F MEDGEN ( [facility]) Inhaled oxygen 100 % 100 % MEDGEN ([facility], ) Body mass index 21 kg/m2 21 kg/m2 MEDGEN (S t (BMI) [Ratio] [facility], ) Diastolic blood 101 mm[Hg] 101 mm[Hg] MEDGEN (S t [facility]) Systolic blood 160 mm[Hg] 160 mm[Hg] MEDGEN ([facility]) Body weight 138 lb 138 lb MEDGEN ([facility]) Body height 68 in 68 in MEDGEN ([facility]) Heart rate 78 /min 78 /min MEDGEN ([facility]) Respiratory rate 12 /min 12 /min MEDGEN ( [facility]) Body temperature 97.5 F 97.5 F MEDGEN ( [facility]) Inhaled oxygen 100 % 100 % MEDGEN ([facility], ) Body mass index 21 kg/m2 21 kg/m2 MEDGEN (S t (BMI) [Ratio] [facility], ) Diastolic blood 101 mm[Hg] 101 mm[Hg] MEDGEN (S t pressure [facility]) Systolic blood 160 mm[Hg] 160 mm[Hg] MEDGEN ([facility]) Body weight 138 lb 138 lb MEDGEN ([facility]) Body height 68 in 68 in MEDGEN ([facility]) Heart rate 78 /min 78 /min MEDGEN ([facility]) Respiratory rate 12 /min 12 /min MEDGEN ( [facility]) Body temperature 97.5 F 97.5 F MEDGEN ( [facility]) Inhaled oxygen 100 % 100 % MEDGEN ([facility], ) Body mass index 21 kg/m2 21 kg/m2 MEDGEN (S t (BMI) [Ratio] [facility], ) Diastolic blood 101 mm[Hg] 101 mm[Hg] MEDGEN (S t pressure [facility]) Systolic blood 160 mm[Hg] 160 mm[Hg] MEDGEN ([facility]) Body weight 138 lb 138 lb MEDGEN ([facility]) Body height 68 in 68 in MEDGEN ([facility]) Heart rate 78 /min 78 /min [facility] ([facility] [place]) Respiratory rate 12 /min 12 /min MEDGEN ( [facility] [place]) Body temperature 97.5 F 97.5 F MEDGEN ( [facility] [place]) Inhaled oxygen 100 % 100 % MEDGEN ([facility], ) Body mass index 21 kg/m2 21 kg/m2 MEDGEN (S t (BMI) [Ratio] [facility], ) Diastolic blood 101 mm[Hg] 101 mm[Hg] MEDGEN (S t [facility]) Systolic blood 160 mm[Hg] 160 mm[Hg] MEDGEN ([facility]) Body weight 138 lb 138 lb MEDGEN ([facility] [place]) Body height 68 in 68 in MEDGEN ([facility] [place]) Heart rate 78 /min 78 /min MEDGEN ([facility] [place]) Respiratory rate 12 /min 12 /min MEDGEN ( [facility] [place]) Body temperature 97.5 F 97.5 F MEDGEN ( [facility] [place]) Inhaled oxygen 100 % 100 % MEDGEN ([facility], ) Body mass index 21 kg/m2 21 kg/m2 MEDGEN (S t (BMI) [Ratio] [facility], ) Diastolic blood 101 mm[Hg] 101 mm[Hg] MEDGEN (S t pressure [facility]) Systolic blood 160 mm[Hg] 160 mm[Hg] MEDGEN ([facility]) Body weight 138 lb 138 lb MEDGEN ([facility] [place]) Body height 68 in 68 in MEDGEN ([facility] [place]) Heart rate 78 /min 78 /min MEDGEN ([facility] [place]) Respiratory rate 12 /min 12 /min MEDGEN ( [facility] [place]) Body temperature 97.5 F 97.5 F MEDGEN ( [facility] [place]) Inhaled oxygen 100 % 100 % MEDGEN ([facility]) Body mass index 21 kg/m2 21 kg/m2 MEDGEN (S t (BMI) [Ratio] [facility] [place]) Diastolic blood 101 mm[Hg] 101 mm[Hg] MEDGEN (S t pressure [facility]) Systolic blood 160 mm[Hg] 160 mm[Hg] MEDGEN ([facility]) Body weight 138 lb 138 lb MEDGEN ([facility] [place]) Body height 68 in 68 in MEDGEN ([facility] [place]) Heart rate 78 /min 78 /min MEDGEN ([facility] [place]) Respiratory rate 12 /min 12 /min MEDGEN ( [facility] [place]) Body temperature 97.5 F 97.5 F MEDGEN ( [facility] [place]) Inhaled oxygen 100 % 100 % MEDGEN ([facility]) Body mass index 21 kg/m2 21 kg/m2 MEDGEN (S t (BMI) [Ratio] [facility] [place]) Diastolic blood 101 mm[Hg] 101 mm[Hg] MEDGEN (S t [facility]) Systolic blood 160 mm[Hg] 160 mm[Hg] MEDGEN ([facility]) Body weight 138 lb 138 lb MEDGEN ([facility] [place]) Body height 68 in 68 in MEDGEN ([facility] [place]) Heart rate 78 /min 78 /min MEDGEN ([facility] [place]) Respiratory rate 12 /min 12 /min MEDGEN ( [facility] [place]) Body temperature 97.5 F 97.5 F MEDGEN ( [facility] [place]) Inhaled oxygen 100 % 100 % MEDGEN ([facility]) Body mass index 21 kg/m2 21 kg/m2 MEDGEN (S t (BMI) [Ratio] [facility], ) Diastolic blood 101 mm[Hg] 101 mm[Hg] MEDGEN (S t pressure [facility]) Systolic blood 160 mm[Hg] 160 mm[Hg] MEDGEN ([facility] [place] , ) Body weight 138 lb 138 lb MEDGEN ([facility] [place]) Body height 68 in 68 in MEDGEN ([facility] [place]) Heart rate 78 /min 78 /min MEDGEN ([facility] [place]) Respiratory rate 12 /min 12 /min MEDGEN ( [facility] [place]) Body temperature 97.5 F 97.5 F MEDGEN ( [facility] [place]) Inhaled oxygen 100 % 100 % MEDGEN ([facility], ) Body mass index 21 kg/m2 21 kg/m2 MEDGEN (S t (BMI) [Ratio] [facility] [place]) Diastolic blood 101 mm[Hg] 101 mm[Hg] MEDGEN (S t pressure [facility]) Systolic blood 160 mm[Hg] 160 mm[Hg] MEDGEN ([facility]) Body weight 138 lb 138 lb MEDGEN ([facility] [place]) Body height 68 in 68 in MEDGEN ([facility] [place]) Heart rate 78 /min 78 /min MEDGEN ([facility] [place]) Respiratory rate 12 /min 12 /min MEDGEN ( [facility] [place]) Body temperature 97.5 F 97.5 F MEDGEN ( [facility] [place]) Inhaled oxygen 100 % 100 % MEDGEN ([facility], ) Body mass index 21 kg/m2 21 kg/m2 MEDGEN (S t (BMI) [Ratio] [facility], ) Diastolic blood 101 mm[Hg] 101 mm[Hg] MEDGEN (S t pressure [facility] , ) Systolic blood 160 mm[Hg] 160 mm[Hg] MEDGEN ([facility]) Body weight 138 lb 138 lb MEDGEN ([facility] [place]) Body height 68 in 68 in MEDGEN ([facility] [place]) Heart rate 78 /min 78 /min MEDGEN ([facility] [place]) Respiratory rate 12 /min 12 /min MEDGEN ( [facility] [place]) Body temperature 97.5 F 97.5 F MEDGEN ( [facility] [place]) Inhaled oxygen 100 % 100 % MEDGEN ([facility], ) Body mass index 21 kg/m2 21 kg/m2 MEDGEN (S t (BMI) [Ratio] [facility], ) Diastolic blood 101 mm[Hg] 101 mm[Hg] MEDGEN (S t pressure [facility]) Systolic blood 160 mm[Hg] 160 mm[Hg] MEDGEN ([facility]) Body weight 138 lb 138 lb MEDGEN ([facility] [place]) Body height 68 in 68 in MEDGEN ([facility] [place]) Heart rate 78 /min 78 /min MEDGEN ([facility] [place]) Respiratory rate 12 /min 12 /min MEDGEN ( [facility] [place]) Body temperature 97.5 F 97.5 F MEDGEN ( [facility] [place]) Inhaled oxygen 100 % 100 % MEDGEN ([facility], ) Body mass index 21 kg/m2 21 kg/m2 MEDGEN (S t (BMI) [Ratio] [facility], ) Diastolic blood 101 mm[Hg] 101 mm[Hg] MEDGEN (S t pressure [facility]) Systolic blood 160 mm[Hg] 160 mm[Hg] MEDGEN ([facility]) Body weight 138 lb 138 lb MEDGEN ([facility] [place]) Body height 68 in 68 in MEDGEN ([facility] [place]) Heart rate 78 /min 78 /min MEDGEN ([facility] [place]) Respiratory rate 12 /min 12 /min MEDGEN ( [facility] [place]) Body temperature 97.5 F 97.5 F MEDGEN ( [facility] [place]) Inhaled oxygen 100 % 100 % MEDGEN ([facility], ) Body mass index 21 kg/m2 21 kg/m2 MEDGEN (S t (BMI) [Ratio] [facility], ) Diastolic blood 101 mm[Hg] 101 mm[Hg] MEDGEN (S t pressure [facility]) Systolic blood 160 mm[Hg] 160 mm[Hg] MEDGEN ([facility]) Body weight 138 lb 138 lb MEDGEN ([facility] [place]) Body height 68 in 68 in MEDGEN ([facility] ) Heart rate 76 /min 76 /min MEDGEN ([facility] , ) Respiratory rate 12 /min 12 /min MEDGEN ( [facility] , ) Body temperature 97.8 F 97.8 F MEDGEN ( [facility] , ) Inhaled oxygen 100 % 100 % MEDGEN (St concentration [facility], ) Diastolic blood 98 mm[Hg] 98 mm[Hg] MEDGEN (S t pressure [facility] , ) Systolic blood 158 mm[Hg] 158 mm[Hg] MEDGEN ([facility] [place] , ) Body height 68 in 68 in MEDGEN ([facility] [place]) Heart rate 76 /min 76 /min MEDGEN ([facility] , ) Respiratory rate 12 /min 12 /min MEDGEN ( [facility] , ) Body temperature 97.8 F 97.8 F MEDGEN ( [facility] , ) Inhaled oxygen 100 % 100 % MEDGEN ([facility], ) Diastolic blood 98 mm[Hg] 98 mm[Hg] MEDGEN (S t pressure [facility] , ) Systolic blood 158 mm[Hg] 158 mm[Hg] MEDGEN ([facility] , ) Body height 68 in 68 in MEDGEN ([facility]) Heart rate 76 /min 76 /min MEDGEN ([facility] , ) Respiratory rate 12 /min 12 /min MEDGEN ( [facility] , ) Body temperature 97.8 F 97.8 F MEDGEN ( [facility] , ) Inhaled oxygen 100 % 100 % MEDGEN ( concentration [facility], ) Diastolic blood 98 mm[Hg] 98 mm[Hg] MEDGEN (S t pressure [facility] , ) Systolic blood 158 mm[Hg] 158 mm[Hg] MEDGEN ([facility] , ) Body height 68 in 68 in MEDGEN ([facility] , ) Heart rate 76 /min 76 /min MEDGEN ([facility] , ) Respiratory rate 12 /min 12 /min MEDGEN ( [facility] , ) Body temperature 97.8 F 97.8 F MEDGEN ( [facility] [place]) Inhaled oxygen 100 % 100 % MEDGEN (St concentration [facility], ) Diastolic blood 98 mm[Hg] 98 mm[Hg] MEDGEN (S t pressure [facility] , ) Systolic blood 158 mm[Hg] 158 mm[Hg] MEDGEN (St pressure [facility] , ) Body height 68 in 68 in MEDGEN ([facility] , ) Heart rate 76 /min 76 /min MEDGEN ([facility] , ) Respiratory rate 12 /min 12 /min MEDGEN ( [facility] , ) Body temperature 97.8 F 97.8 F MEDGEN ( [facility] , ) Inhaled oxygen 100 % 100 % MEDGEN ( concentration [facility], ) Diastolic blood 98 mm[Hg] 98 mm[Hg] MEDGEN (S t pressure [facility] , ) Systolic blood 158 mm[Hg] 158 mm[Hg] MEDGEN ([facility] , ) Body height 68 in 68 in MEDGEN ([facility]) Heart rate 76 /min 76 /min MEDGEN ([facility] , ) Respiratory rate 12 /min 12 /min MEDGEN ( [place] , ) Body temperature 97.8 F 97.8 F MEDGEN ( [facility] , ) Inhaled oxygen 100 % 100 % MEDGEN (St concentration [facility], ) Diastolic blood 98 mm[Hg] 98 mm[Hg] MEDGEN (S t pressure [facility] , ) Systolic blood 158 mm[Hg] 158 mm[Hg] MEDGEN ([facility] , ) Body height 68 in 68 in MEDGEN ([facility] , ) Heart rate 76 /min 76 /min MEDGEN ([facility] , ) Respiratory rate 12 /min 12 /min MEDGEN ( [facility] , ) Body temperature 97.8 F 97.8 F MEDGEN ( [facility] , ) Inhaled oxygen 100 % 100 % MEDGEN ([facility], ) Diastolic blood 98 mm[Hg] 98 mm[Hg] MEDGEN (S t pressure [facility] , ) Systolic blood 158 mm[Hg] 158 mm[Hg] MEDGEN ([facility] [...] temperature 97.8 F 97.8 F MEDGEN ( [facility] , ) Inhaled oxygen 100 % 100 % MEDGEN ([facility], ) Diastolic blood 98 mm[Hg] 98 mm[Hg] MEDGEN (S t pressure [facility] , ) Systolic blood 158 mm[Hg] 158 mm[Hg] MEDGEN (St pressure [facility] , ) Body height 68 in 68 in MEDGEN ([facility] , ) Heart rate 76 /min 76 /min MEDGEN ([facility] , ) Respiratory rate 12 /min 12 /min MEDGEN ( [facility] , ) Body temperature 97.8 F 97.8 F MEDGEN ( [place] , ) Inhaled oxygen 100 % 100 % MEDGEN (St concentration [facility], ) Diastolic blood 98 mm[Hg] 98 mm[Hg] [...] Inhaled oxygen 100 % 100 % MEDGEN ([facility], ) Diastolic blood 98 mm[Hg] 98 mm[Hg] MEDGEN (S t pressure [facility] , ) Systolic blood 158 mm[Hg] 158 mm[Hg] MEDGEN (St pressure [facility] , ) Body height 68 in 68 in MEDGEN ([place] , ) Heart rate 76 /min 76 /min MEDGEN ([facility] , ) Respiratory rate 12 /min 12 /min MEDGEN ( [facility] , ) Body temperature 97.8 F 97.8 F MEDGEN ( [facility] [place]) Inhaled oxygen 100 % 100 % MEDGEN ([facility], ) Diastolic blood 98 mm[Hg] 98 mm[Hg] MEDGEN (S t pressure [facility] , ) Systolic blood 158 mm[Hg] 158 mm[Hg] MEDGEN ([facility] , ) Body height 68 in 68 in MEDGEN ([facility] [place]) Heart rate 76 /min 76 /min MEDGEN ([facility] [place]) Respiratory rate 12 /min 12 /min MEDGEN ( [facility] [place]) Body temperature 97.8 F 97.8 F MEDGEN ( [facility] [place]) Inhaled oxygen 100 % 100 % MEDGEN ([facility], ) Diastolic blood 98 mm[Hg] 98 mm[Hg] MEDGEN (S t [facility] , ) Systolic blood 158 mm[Hg] 158 mm[Hg] MEDGEN ([facility] , ) Body height 68 in 68 in MEDGEN ([facility] [place]) Heart rate 76 /min 76 /min MEDGEN ([facility] [place]) Respiratory rate 12 /min 12 /min MEDGEN ( [facility] [place]) Body temperature 97.8 F 97.8 F MEDGEN ( [facility] [place]) Inhaled oxygen 100 % 100 % MEDGEN ([facility], ) Diastolic blood 98 mm[Hg] 98 mm[Hg] MEDGEN (S t pressure [facility] , ) Systolic blood 158 mm[Hg] 158 mm[Hg] MEDGEN ([facility] , ) Body height 68 in 68 in MEDGEN ([facility] [place]) Respiratory rate 12 /min 12 /min MEDGEN ( [facility] , ) Body temperature 97.8 F 97.8 F MEDGEN ( [facility] [place]) Inhaled oxygen 100 % 100 % MEDGEN ([facility], ) Diastolic blood 98 mm[Hg] 98 mm[Hg] MEDGEN (S t pressure [facility] , ) Systolic blood 158 mm[Hg] 158 mm[Hg] MEDGEN ([facility] , ) Body height 68 in 68 in MEDGEN ([facility] [place]) Heart rate 76 /min 76 /min MEDGEN ([facility] , ) Heart rate 76 /min 76 /min MEDGEN ([facility] , ) Respiratory rate 12 /min 12 /min MEDGEN ( [place] , ) Body temperature 97.8 F 97.8 F MEDGEN ( [facility] , ) Inhaled oxygen 100 % 100 % MEDGEN ([facility], ) Diastolic blood 98 mm[Hg] 98 mm[Hg] MEDGEN (S t pressure [facility] , ) Systolic blood 158 mm[Hg] 158 mm[Hg] MEDGEN ([facility] , ) Body height 68 in 68 in MEDGEN ([place] , ) Heart rate 74 /min 74 /min MEDGEN ([facility] , ) Respiratory rate 13 /min 13 /min MEDGEN ( [place] , ) Inhaled oxygen 100 % 100 % MEDGEN ([facility] [place], ) Diastolic blood 73 mm[Hg] 73 mm[Hg] MEDGEN (S t pressure [facility] , ) Systolic blood 159 mm[Hg] 159 mm[Hg] MEDGEN ([facility] , ) Heart rate 74 /min 74 /min MEDGEN ([facility] , ) Respiratory rate 13 /min 13 /min MEDGEN ( [facility] , ) Inhaled oxygen 100 % 100 % MEDGEN ([facility] [place], ) Diastolic blood 73 mm[Hg] 73 mm[Hg] MEDGEN (S t pressure [facility] , ) Systolic blood 159 mm[Hg] 159 mm[Hg] MEDGEN ([facility] , ) Heart rate 74 /min 74 /min MEDGEN ([facility] , ) Respiratory rate 13 /min 13 /min MEDGEN ( [facility] , ) Inhaled oxygen 100 % 100 % MEDGEN ([facility], ) Diastolic blood 73 mm[Hg] 73 mm[Hg] MEDGEN (S t pressure [facility] , ) Systolic blood 159 mm[Hg] 159 mm[Hg] MEDGEN ([facility] [...] 100 % 100 % MEDGEN (St concentration [facility]) Diastolic blood 73 mm[Hg] 73 mm[Hg] MEDGEN (S t pressure [facility]) Systolic blood 159 mm[Hg] 159 mm[Hg] MEDGEN (St pressure [facility]) Heart rate 74 /min 74 /min MEDGEN ([facility]) Respiratory rate 13 /min 13 /min MEDGEN ( [facility] , ) Inhaled oxygen 100 % 100 % MEDGEN (St concentration [facility]) Diastolic blood 73 mm[Hg] 73 mm[Hg] MEDGEN (S t pressure [facility]) Systolic blood 159 mm[Hg] 159 mm[Hg] MEDGEN (St pressure [facility]) Heart rate 74 /min 74 /min MEDGEN ([facility]) Respiratory rate 13 /min 13 /min MEDGEN ( [facility]) Inhaled oxygen 100 % 100 % MEDGEN (St concentration [facility]) Diastolic blood 73 mm[Hg] 73 mm[Hg] MEDGEN (S t pressure [facility]) Systolic blood 159 mm[Hg] 159 mm[Hg] MEDGEN (St pressure [facility]) Heart rate 74 /min 74 /min MEDGEN ([facility]) Respiratory rate 13 /min 13 /min MEDGEN ( [facility]) Inhaled oxygen 100 % 100 % MEDGEN (St [facility]) Diastolic blood 73 mm[Hg] 73 mm[Hg] MEDGEN (S t pressure [facility]) Systolic blood 159 mm[Hg] 159 mm[Hg] MEDGEN (St [facility]) Heart rate 74 /min 74 /min MEDGEN ([facility]) Respiratory rate 13 /min 13 /min MEDGEN ( [facility]) Inhaled oxygen 100 % 100 % MEDGEN (St concentration [facility]) Diastolic blood 73 mm[Hg] [...] 100 % 100 % MEDGEN (St concentration [facility], ) Diastolic blood 73 mm[Hg] 73 mm[Hg] MEDGEN (S t pressure [facility]) Systolic blood 159 mm[Hg] 159 mm[Hg] MEDGEN (St pressure [facility] , ) Heart rate 74 /min 74 /min MEDGEN ([facility] , ) Respiratory rate 13 /min 13 /min MEDGEN ( [facility] , ) Inhaled oxygen 100 % 100 % MEDGEN ([facility] [place], ) Diastolic blood 73 mm[Hg] 73 mm[Hg] MEDGEN (S t pressure [facility]) Systolic blood 159 mm[Hg] 159 mm[Hg] MEDGEN (St pressure [facility] , ) Heart rate 74 /min 74 /min MEDGEN ([facility] , ) Inhaled oxygen 100 % 100 % MEDGEN ([facility] [place], ) Diastolic blood 89 mm[Hg] 89 mm[Hg] MEDGEN (S t pressure [facility]) Systolic blood 147 mm[Hg] 147 mm[Hg] MEDGEN (St pressure [facility] , ) Body weight 142 lb 142 lb MEDGEN ([facility] , ) Heart rate 74 /min 74 /min MEDGEN ([facility] , ) Inhaled oxygen 100 % 100 % MEDGEN ([facility] [place], ) Diastolic blood 89 mm[Hg] 89 mm[Hg] [...] Inhaled oxygen 100 % 100 % MEDGEN ([facility], ) Diastolic blood 89 mm[Hg] 89 mm[Hg] MEDGEN (S t pressure [facility] , ) Systolic blood 147 mm[Hg] 147 mm[Hg] MEDGEN (St pressure [facility] , ) Body weight 142 lb 142 lb MEDGEN ([facility] , ) Heart rate 74 /min 74 /min MEDGEN ([facility] , ) Inhaled oxygen 100 % 100 % MEDGEN (St concentration [facility], ) Diastolic blood 89 mm[Hg] 89 mm[Hg] MEDGEN (S t pressure [facility]) Systolic blood 147 mm[Hg] 147 mm[Hg] MEDGEN ([facility] , ) Body weight 142 lb 142 lb MEDGEN ([facility] , ) Heart rate 74 /min 74 /min MEDGEN ([facility] , ) Inhaled oxygen 100 % 100 % MEDGEN (St concentration [facility], ) Diastolic blood 89 mm[Hg] 89 mm[Hg] [...] 100 % 100 % MEDGEN (St concentration [facility], ) Diastolic blood 89 mm[Hg] 89 mm[Hg] MEDGEN (S t pressure [facility]) Systolic blood 147 mm[Hg] 147 mm[Hg] MEDGEN (St pressure [facility] , ) Body weight 142 lb 142 lb MEDGEN ([facility] , ) Heart rate 74 /min 74 /min MEDGEN ([place] , ) Inhaled oxygen 100 % 100 % MEDGEN (St concentration [facility], ) Diastolic blood 89 mm[Hg] 89 mm[Hg] MEDGEN (S t pressure [facility]) Systolic blood 147 mm[Hg] 147 mm[Hg] MEDGEN (St pressure [facility] , ) Body weight 142 lb 142 lb MEDGEN ([facility] , ) Heart rate 74 /min 74 /min MEDGEN ([facility] , ) Inhaled oxygen 100 % 100 % MEDGEN ([facility], ) Diastolic blood 89 mm[Hg] 89 mm[Hg] MEDGEN (S t [facility] [place] , ) Systolic blood 147 mm[Hg] 147 mm[Hg] MEDGEN ([facility] , ) Body weight 142 lb 142 lb MEDGEN ([facility] [place]) Heart rate 74 /min 74 /min MEDGEN ([facility] , ) Inhaled oxygen 100 % 100 % MEDGEN ([facility], ) Diastolic blood 89 mm[Hg] 89 mm[Hg] MEDGEN (S t [facility] [place] , ) Systolic blood 147 mm[Hg] 147 mm[Hg] MEDGEN ([facility] , ) Body weight 142 lb 142 lb MEDGEN ([facility] [place]) Heart rate 74 /min 74 /min MEDGEN ([facility] , ) Inhaled oxygen 100 % 100 % MEDGEN ([facility], ) Diastolic blood 89 mm[Hg] 89 mm[Hg] MEDGEN (S t [facility] [place] , ) Systolic blood 147 mm[Hg] 147 mm[Hg] MEDGEN ([facility] , ) Body weight 142 lb 142 lb MEDGEN ([facility]) Heart rate 74 /min 74 /min MEDGEN ([facility] , ) Inhaled oxygen 100 % 100 % MEDGEN ([facility], ) Diastolic blood 89 mm[Hg] 89 mm[Hg] MEDGEN (S t [facility] , ) Systolic blood 147 mm[Hg] 147 mm[Hg] MEDGEN ([facility] , ) Body weight 142 lb 142 lb MEDGEN ([facility]) Heart rate 74 /min 74 /min MEDGEN ([facility] , ) Inhaled oxygen 100 % 100 % MEDGEN ([facility], ) Diastolic blood 89 mm[Hg] 89 mm[Hg] MEDGEN (S t pressure [facility] , ) Systolic blood 147 mm[Hg] 147 mm[Hg] MEDGEN ([facility] , ) Body weight 142 lb 142 lb MEDGEN ([facility]) Heart rate 74 /min 74 /min MEDGEN ([facility] , ) Inhaled oxygen 100 % 100 % MEDGEN ( concentration [facility], ) Diastolic blood 89 mm[Hg] 89 mm[Hg] MEDGEN (S t pressure [facility] , ) Systolic blood 147 mm[Hg] 147 mm[Hg] MEDGEN ([facility] , ) Body weight 142 lb 142 lb MEDGEN ([facility]) Heart rate 74 /min 74 /min MEDGEN ([facility] , ) Inhaled oxygen 100 % 100 % MEDGEN ([facility], ) Diastolic blood 89 mm[Hg] 89 mm[Hg] MEDGEN (S t pressure [facility] , ) Systolic blood 147 mm[Hg] 147 mm[Hg] MEDGEN ([facility] , ) Body weight 142 lb 142 lb MEDGEN ([facility]) Heart rate 74 /min 74 /min MEDGEN ([facility] , ) Inhaled oxygen 100 % 100 % MEDGEN ([facility], ) Diastolic blood 89 mm[Hg] 89 mm[Hg] MEDGEN (S t pressure [facility] , ) Systolic blood 147 mm[Hg] 147 mm[Hg] MEDGEN ([facility] , ) Body weight 142 lb 142 lb MEDGEN ([facility]) Heart rate 79 /min 79 /min MEDGEN ([facility]) Respiratory rate 12 /min 12 /min MEDGEN ( [facility]) Body mass index 23.2 kg/m2 23.2 kg/m2 MEDGEN (S t (BMI) [Ratio] [facility], ) Diastolic blood 86 mm[Hg] 86 mm[Hg] MEDGEN (S t pressure [facility] , ) Systolic blood 143 mm[Hg] 143 mm[Hg] MEDGEN ([facility] , ) Body weight 144 lb 144 lb MEDGEN ([facility]) Body height 66 in 66 in MEDGEN ([facility]) Heart rate 79 /min 79 /min MEDGEN ([facility]) Respiratory rate 12 /min 12 /min MEDGEN ( [facility] , ) Body mass index 23.2 kg/m2 23.2 kg/m2 MEDGEN (S t (BMI) [Ratio] [facility], ) Diastolic blood 86 mm[Hg] 86 mm[Hg] MEDGEN (S t pressure [facility] , ) Systolic blood 143 mm[Hg] 143 mm[Hg] MEDGEN ([facility] , ) Body weight 144 lb 144 lb MEDGEN ([facility]) Body height 66 in 66 in MEDGEN ([facility]) Heart rate 79 /min 79 /min MEDGEN ([facility]) Respiratory rate 12 /min 12 /min MEDGEN ( [facility] , ) Body mass index 23.2 kg/m2 23.2 kg/m2 MEDGEN (S t (BMI) [Ratio] [facility], ) Diastolic blood 86 mm[Hg] 86 mm[Hg] MEDGEN (S t pressure [facility] , ) Systolic blood 143 mm[Hg] 143 mm[Hg] MEDGEN ([facility] , ) Body weight 144 lb 144 lb MEDGEN ([facility]) Body height 66 in 66 in MEDGEN ([facility]) Heart rate 79 /min 79 /min MEDGEN ([facility]) Respiratory rate 12 /min 12 /min MEDGEN ( [facility]) Body mass index 23.2 kg/m2 23.2 kg/m2 MEDGEN (S t (BMI) [Ratio] [facility], ) Diastolic blood 86 mm[Hg] 86 mm[Hg] MEDGEN (S t pressure [facility] , ) Systolic blood 143 mm[Hg] 143 mm[Hg] MEDGEN ([facility] , ) Body weight 144 lb 144 lb MEDGEN ([facility]) Body height 66 in 66 in MEDGEN ([facility]) Heart rate 79 /min 79 /min MEDGEN ([facility]) Respiratory rate 12 /min 12 /min MEDGEN ( [facility] , ) Body mass index 23.2 kg/m2 23.2 kg/m2 MEDGEN (S t (BMI) [Ratio] [facility]ile, ) Diastolic blood 86 mm[Hg] 86 mm[Hg] MEDGEN (S t pressure [facility] , ) Systolic blood 143 mm[Hg] 143 mm[Hg] MEDGEN (St pressure [facility] , ) Body weight 144 lb 144 lb MEDGEN ([facility] , ) Body height 66 in 66 in MEDGEN ([facility] , ) Heart rate 79 /min 79 /min MEDGEN ([place] , ) Respiratory rate 12 /min 12 /min MEDGEN ( [facility] , ) Body mass index 23.2 kg/m2 23.2 kg/m2 MEDGEN (S t (BMI) [Ratio] [facility], ) Diastolic blood 86 mm[Hg] 86 mm[Hg] MEDGEN (S t pressure [facility] , ) Systolic blood 143 mm[Hg] 143 mm[Hg] MEDGEN ([facility] , ) Body weight 144 lb 144 lb MEDGEN ([facility] , ) Body height 66 in 66 in MEDGEN ([place] , ) Heart rate 79 /min 79 /min MEDGEN ([facility] , ) Respiratory rate 12 /min 12 /min MEDGEN ( [place] , ) Body mass index 23.2 kg/m2 23.2 kg/m2 MEDGEN (S t (BMI) [Ratio] [facility], ) Diastolic blood 86 mm[Hg] 86 mm[Hg] MEDGEN (S t pressure [facility] , ) Systolic blood 143 mm[Hg] 143 mm[Hg] MEDGEN (St pressure [facility] , ) Body weight 144 lb 144 lb MEDGEN ([facility] , ) Body height 66 in 66 in MEDGEN ([facility] , ) Heart rate 79 /min 79 /min MEDGEN ([facility] , ) Respiratory rate 12 /min 12 /min MEDGEN ( [facility] , ) Body mass index 23.2 kg/m2 23.2 kg/m2 MEDGEN (S t (BMI) [Ratio] [facility], ) Diastolic blood 86 mm[Hg] 86 mm[Hg] MEDGEN (S t pressure [facility]) Systolic blood 143 mm[Hg] 143 mm[Hg] MEDGEN ([facility]) Body weight 144 lb 144 lb MEDGEN ([facility]) Body height 66 in 66 in MEDGEN ([facility]) Heart rate 79 /min 79 /min MEDGEN ([facility]) Respiratory rate 12 /min 12 /min MEDGEN ( [facility]) Body mass index 23.2 kg/m2 23.2 kg/m2 MEDGEN (S t (BMI) [Ratio] [facility], ) Diastolic blood 86 mm[Hg] 86 mm[Hg] MEDGEN (S t pressure [facility]) Systolic blood 143 mm[Hg] 143 mm[Hg] MEDGEN ([facility]) Body weight 144 lb 144 lb MEDGEN ([facility]) Body height 66 in 66 in MEDGEN ([facility]) Heart rate 79 /min 79 /min MEDGEN ([facility]) Respiratory rate 12 /min 12 /min MEDGEN ( [facility]) Body mass index 23.2 kg/m2 23.2 kg/m2 MEDGEN (S t (BMI) [Ratio] [facility], ) Diastolic blood 86 mm[Hg] 86 mm[Hg] MEDGEN (S t pressure [facility]) Systolic blood 143 mm[Hg] 143 mm[Hg] MEDGEN ([facility]) Body weight 144 lb 144 lb MEDGEN ([facility]) Body height 66 in 66 in MEDGEN ([facility]) Heart rate 79 /min 79 /min MEDGEN ([facility]) Respiratory rate 12 /min 12 /min MEDGEN ( [facility]) Body mass index 23.2 kg/m2 23.2 kg/m2 MEDGEN (S t (BMI) [Ratio] [facility], ) Diastolic blood 86 mm[Hg] 86 mm[Hg] MEDGEN (S t pressure [facility]) Systolic blood 143 mm[Hg] 143 mm[Hg] MEDGEN ([facility] , ) Body weight 144 lb 144 lb MEDGEN ([facility]) Body height 66 in 66 in MEDGEN ([facility]) Heart rate 79 /min 79 /min MEDGEN ([facility]) Respiratory rate 12 /min 12 /min MEDGEN ( [facility] , ) Body mass index 23.2 kg/m2 23.2 kg/m2 MEDGEN (S t (BMI) [Ratio] [facility], ) Diastolic blood 86 mm[Hg] 86 mm[Hg] MEDGEN (S t pressure [facility] , ) Systolic blood 143 mm[Hg] 143 mm[Hg] MEDGEN ([facility] , ) Body weight 144 lb 144 lb MEDGEN ([facility]) Body height 66 in 66 in MEDGEN ([facility]) Heart rate 79 /min 79 /min MEDGEN ([facility] , ) Respiratory rate 12 /min 12 /min MEDGEN ( [facility] , ) Body mass index 23.2 kg/m2 23.2 kg/m2 MEDGEN (S t (BMI) [Ratio] [facility], ) Diastolic blood 86 mm[Hg] 86 mm[Hg] MEDGEN (S t pressure [facility] , ) Systolic blood 143 mm[Hg] 143 mm[Hg] MEDGEN ([facility] , ) Body weight 144 lb 144 lb MEDGEN ([facility]) Body height 66 in 66 in MEDGEN ([facility]) Heart rate 79 /min 79 /min MEDGEN ([facility]) Respiratory rate 12 /min 12 /min MEDGEN ( [facility] , ) Body mass index 23.2 kg/m2 23.2 kg/m2 MEDGEN (S t (BMI) [Ratio] [facility], ) Diastolic blood 86 mm[Hg] 86 mm[Hg] MEDGEN (S t pressure [facility] , ) Systolic blood 143 mm[Hg] 143 mm[Hg] MEDGEN ([facility] , ) Body weight 144 lb 144 lb MEDGEN ([facility]) Body height 66 in 66 in MEDGEN ([facility]) Heart rate 79 /min 79 /min MEDGEN ([facility]) Respiratory rate 12 /min 12 /min MEDGEN ( [facility] , ) Body mass index 23.2 kg/m2 23.2 kg/m2 MEDGEN (S t (BMI) [Ratio] [facility], ) Diastolic blood 86 mm[Hg] 86 mm[Hg] MEDGEN (S t pressure [facility] , ) Systolic blood 143 mm[Hg] 143 mm[Hg] MEDGEN ([facility] , ) Body weight 144 lb 144 lb MEDGEN ([facility] , ) Body height 66 in 66 in MEDGEN ([facility] , ) Heart rate 67 /min 67 /min MEDGEN ([facility] , ) Respiratory rate 13 /min 13 /min MEDGEN ( [facility] , ) Inhaled oxygen 99 % 99 % MEDGEN ([facility], ) Diastolic blood 87 mm[Hg] 87 mm[Hg] MEDGEN (S t pressure [facility] , ) Systolic blood 134 mm[Hg] 134 mm[Hg] MEDGEN ([facility] , ) Heart rate 67 /min 67 /min MEDGEN ([facility] , ) Respiratory rate 13 /min 13 /min MEDGEN ( [facility] , ) Inhaled oxygen 99 % 99 % MEDGEN ([facility], ) Diastolic blood 87 mm[Hg] 87 mm[Hg] MEDGEN (S t pressure [facility] , ) Systolic blood 134 mm[Hg] 134 mm[Hg] MEDGEN ([facility] , ) Heart rate 67 /min 67 /min MEDGEN ([facility] , ) Respiratory rate 13 /min 13 /min MEDGEN ( [facility] , ) Inhaled oxygen 99 % 99 % MEDGEN ([facility], ) Diastolic blood 87 mm[Hg] 87 mm[Hg] MEDGEN (S t pressure [facility] , ) Systolic blood 134 mm[Hg] 134 mm[Hg] MEDGEN ([facility] , ) Heart rate 67 /min 67 /min MEDGEN ([facility] , ) Respiratory rate 13 /min 13 /min MEDGEN ( [facility] , ) Inhaled oxygen 99 % 99 % MEDGEN (St concentration [facility], ) Diastolic blood 87 mm[Hg] 87 mm[Hg] MEDGEN (S t pressure [facility]) Systolic blood 134 mm[Hg] 134 mm[Hg] MEDGEN (St pressure [facility] , ) Heart rate 67 /min 67 /min MEDGEN ([facility] , ) Respiratory rate 13 /min 13 /min MEDGEN ( [facility] , ) Inhaled oxygen 99 % 99 % MEDGEN (St concentration [facility], ) Diastolic blood 87 mm[Hg] 87 mm[Hg] [...] 99 % 99 % MEDGEN (St concentration [facility], ) Diastolic blood 87 mm[Hg] 87 mm[Hg] [...] Inhaled oxygen 99 % 99 % MEDGEN ([facility], ) Diastolic blood 87 mm[Hg] 87 mm[Hg] [...] oxygen 99 % 99 % MEDGEN ([facility], ) Diastolic blood 87 mm[Hg] 87 mm[Hg] [...] 99 % 99 % MEDGEN (St concentration [facility]) Diastolic blood 87 mm[Hg] 87 mm[Hg] MEDGEN (S t pressure [facility]) Systolic blood 134 mm[Hg] 134 mm[Hg] MEDGEN (St [facility]) Heart rate 67 /min 67 /min MEDGEN ([facility]) Respiratory rate 13 /min 13 /min MEDGEN ( [facility]) Inhaled oxygen 99 % 99 % MEDGEN (St concentration [facility]) Diastolic blood 87 mm[Hg] 87 mm[Hg] MEDGEN (S t pressure [facility]) Systolic blood 134 mm[Hg] 134 mm[Hg] MEDGEN (St pressure [facility]) Heart rate 67 /min 67 /min MEDGEN ([facility]) Respiratory rate 13 /min 13 /min MEDGEN ( [facility] , ) Inhaled oxygen 99 % 99 % MEDGEN (St concentration [facility]) Diastolic blood 87 mm[Hg] 87 mm[Hg] MEDGEN (S t pressure [facility]) Systolic blood 134 mm[Hg] 134 mm[Hg] MEDGEN (St pressure [facility]) Heart rate 67 /min 67 /min MEDGEN ([facility]) Respiratory rate 13 /min 13 /min MEDGEN ( [facility] , ) Inhaled oxygen 99 % 99 % MEDGEN (St concentration [facility]) Diastolic blood 87 mm[Hg] 87 mm[Hg] MEDGEN (S t pressure [facility]) Systolic blood 134 mm[Hg] 134 mm[Hg] MEDGEN (St pressure [facility] , ) Heart rate 67 /min 67 /min MEDGEN ([facility] , ) Respiratory rate 13 /min 13 /min MEDGEN ( [facility] , ) Inhaled oxygen 99 % 99 % MEDGEN ([facility], ) Diastolic blood 87 mm[Hg] 87 mm[Hg] MEDGEN (S t pressure [facility] , ) Systolic blood 134 mm[Hg] 134 mm[Hg] MEDGEN (St pressure [facility] , ) Heart rate 67 /min 67 /min MEDGEN ([facility] , ) Respiratory rate 13 /min 13 /min MEDGEN ( [facility] , ) Inhaled oxygen 99 % 99 % MEDGEN ([facility], ) Diastolic blood 87 mm[Hg] 87 mm[Hg] [...] rate 14 /min 14 /min MEDGEN ( [facility] , ) Body temperature 98.5 F 98.5 F MEDGEN ( [facility] , ) Diastolic blood 95 mm[Hg] 95 mm[Hg] MEDGEN (S t pressure [facility] , ) Systolic blood 151 mm[Hg] 151 mm[Hg] MEDGEN ([facility] , ) Body weight 159 lb 159 lb MEDGEN ([facility]) Heart rate 85 /min 85 /min MEDGEN ([facility] , ) Respiratory rate 14 /min 14 /min MEDGEN ( [facility] , ) Body temperature 98.5 F 98.5 F MEDGEN ( [facility] , ) Diastolic blood 95 mm[Hg] 95 mm[Hg] MEDGEN (S t [facility] , ) Systolic blood 151 mm[Hg] 151 mm[Hg] MEDGEN ([facility] , ) Body weight 159 lb 159 lb MEDGEN ([facility]) Heart rate 85 /min 85 /min MEDGEN ([facility] , ) Respiratory rate 14 /min 14 /min MEDGEN ( [facility] , ) Body temperature 98.5 F 98.5 F MEDGEN ( [facility] , ) Diastolic blood 95 mm[Hg] 95 mm[Hg] MEDGEN (S t [facility] , ) Systolic blood 151 mm[Hg] 151 mm[Hg] MEDGEN ([facility] , ) Body weight 159 lb 159 lb MEDGEN ([facility] , ) Heart rate 85 /min 85 /min MEDGEN ([facility] , ) Respiratory rate 14 /min 14 /min MEDGEN ( [facility] , ) Body temperature 98.5 F 98.5 F MEDGEN ( [facility] , ) Diastolic blood 95 mm[Hg] 95 mm[Hg] MEDGEN (S t pressure [facility] , ) Systolic blood 151 mm[Hg] 151 mm[Hg] MEDGEN ([facility] , ) Body weight 159 lb 159 lb MEDGEN ([facility]) Heart rate 85 /min 85 /min MEDGEN ([facility]) Respiratory rate 14 /min 14 /min MEDGEN ( [facility] , ) Body temperature 98.5 F 98.5 F MEDGEN ( [facility] , ) Diastolic blood 95 mm[Hg] 95 mm[Hg] MEDGEN (S t pressure [facility] , ) Systolic blood 151 mm[Hg] 151 mm[Hg] MEDGEN ([facility] , ) Body weight 159 lb 159 lb MEDGEN ([facility]) Heart rate 85 /min 85 /min MEDGEN ([facility] , ) Respiratory rate 14 /min 14 /min MEDGEN ( [facility] , ) Body temperature 98.5 F 98.5 F MEDGEN ( [facility] , ) Diastolic blood 95 mm[Hg] 95 mm[Hg] MEDGEN (S t [facility] , ) Systolic blood 151 mm[Hg] 151 mm[Hg] MEDGEN ([facility] , ) Body weight 159 lb 159 lb MEDGEN ([facility]) Heart rate 85 /min 85 /min MEDGEN ([facility] , ) Respiratory rate 14 /min 14 /min MEDGEN ( [facility] , ) Body temperature 98.5 F 98.5 F MEDGEN ( [facility] , ) Diastolic blood 95 mm[Hg] 95 mm[Hg] MEDGEN (S t [facility] , ) Systolic blood 151 mm[Hg] 151 mm[Hg] MEDGEN ([facility] , ) Body weight 159 lb 159 lb MEDGEN ([facility] , ) Heart rate 85 /min 85 /min MEDGEN ([facility] , ) Respiratory rate 14 /min 14 /min MEDGEN ( [facility] , ) Body temperature 98.5 F 98.5 F MEDGEN ( [facility] , ) Diastolic blood 95 mm[Hg] 95 mm[Hg] MEDGEN (S t pressure [facility] , ) Systolic blood 151 mm[Hg] 151 mm[Hg] MEDGEN ([facility] , ) Body weight 159 lb 159 lb MEDGEN ([facility]) Heart rate 85 /min 85 /min MEDGEN ([facility]) Respiratory rate 14 /min 14 /min MEDGEN ( [facility] , ) Body temperature 98.5 F 98.5 F MEDGEN ( [facility] , ) Diastolic blood 95 mm[Hg] 95 mm[Hg] MEDGEN (S t pressure [facility] , ) Systolic blood 151 mm[Hg] 151 mm[Hg] MEDGEN ([facility] , ) Body weight 159 lb 159 lb MEDGEN ([facility]) Heart rate 85 /min 85 /min MEDGEN ([facility] , ) Respiratory rate 14 /min 14 /min MEDGEN ( [facility] , ) Body temperature 98.5 F 98.5 F MEDGEN ( [facility] , ) Diastolic blood 95 mm[Hg] 95 mm[Hg] MEDGEN (S t [facility] , ) Systolic blood 151 mm[Hg] 151 mm[Hg] MEDGEN ([facility] , ) Body weight 159 lb 159 lb MEDGEN ([facility]) Heart rate 85 /min 85 /min MEDGEN ([facility] , ) Respiratory rate 14 /min 14 /min MEDGEN ( [facility] , ) Body temperature 98.5 F 98.5 F MEDGEN ( [facility] , ) Diastolic blood 95 mm[Hg] 95 mm[Hg] MEDGEN (S t [facility] , ) Systolic blood 151 mm[Hg] 151 mm[Hg] MEDGEN ([facility] , ) Body weight 159 lb 159 lb MEDGEN ([facility] , ) Heart rate 85 /min 85 /min MEDGEN ([facility] , ) Respiratory rate 14 /min 14 /min MEDGEN ( [facility] , ) Body temperature 98.5 F 98.5 F MEDGEN ( [facility] , ) Diastolic blood 95 mm[Hg] 95 mm[Hg] MEDGEN (S t pressure [facility] , ) Systolic blood 151 mm[Hg] 151 mm[Hg] MEDGEN ([facility] , ) Body weight 159 lb 159 lb MEDGEN ([facility]) Heart rate 85 /min 85 /min MEDGEN ([facility]) Respiratory rate 14 /min 14 /min MEDGEN ( [facility] , ) Body temperature 98.5 F 98.5 F MEDGEN ( [facility] , ) Diastolic blood 95 mm[Hg] 95 mm[Hg] MEDGEN (S t pressure [facility] , ) Systolic blood 151 mm[Hg] 151 mm[Hg] MEDGEN ([facility] , ) Body weight 159 lb 159 lb MEDGEN ([facility] , ) Heart rate 76 /min 76 /min MEDGEN ([facility] , ) Respiratory rate 16 /min 16 /min MEDGEN ( [facility] , ) Diastolic blood 105 mm[Hg] 105 mm[Hg] MEDGEN (S t pressure [facility] , ) Systolic blood 178 mm[Hg] 178 mm[Hg] MEDGEN ([facility] , ) Heart rate [...] pressure [facility] , ) Body temperature [id number] [facility] Respiratory rate 18 /min 18 /min [facility] Oxygen saturation 98 % 98 % [facility] rogerio in [facility] blood [facility] by Pulse oximetry Heart rate 77 /min 77 /min [facility] Diastolic blood 90 mm[Hg] 90 mm[Hg] [facility] Systolic blood 157 mm[Hg] 157 mm[Hg] [facility] Diastolic blood 114 mm[Hg] 114 mm[Hg] [facility] pressure [facility] Systolic blood 192 mm[Hg] 192 mm[Hg] [facility] Body temperature [id number] [facility] Respiratory rate 16 /min 16 /min [facility] Oxygen saturation 99 % 99 % [facility] blood [facility] Center by Pulse oximetry Heart rate 78 /min 78 /min [facility] Diastolic blood 91 mm[Hg] 91 mm[Hg] [facility] pressure [facility] Systolic blood 154 mm[Hg] 154 mm[Hg] [facility] Body temperature [id number] [facility] Respiratory rate 81 /min 81 /min [facility] Oxygen saturation 98 % 98 % [facility] Arter[facility] blood [facility] Center by Pulse oximetry Heart rate 81 /min 81 /min [facility] Diastolic blood 110 mm[Hg] 110 mm[Hg] [facility] Systolic blood 178 mm[Hg] 178 mm[Hg] [facility] Body temperature 36.740432 [id number] [facility] Respiratory rate 21 /min 21 /min [facility] Oxygen saturation 97 % 97 % [facility] Arterial blood [facility] by Pulse oximetry Heart rate 73 /min 73 /min [facility] Diastolic blood 100 mm[Hg] 100 mm[Hg] [facility] pressure [facility] Systolic blood 176 mm[Hg] 176 mm[Hg] [facility] Body temperature 36.851412 [id number] [facility] Respiratory rate 18 /min 18 /min [facility] Oxygen saturation 98 % 98 % [facility] Arterial blood [facility] by Pulse oximetry Heart rate 76 /min 76 /min [facility] Body weight 65.370022 65.969767 kg [facility] Measured kg [facility] [place] Body height 170.780210 170.826885 cm [facility] Body mass index 22.7 kg/m2 22.7 kg/m2 [facility] (BMI) [Ratio] Medical Trixie [address] [...] oxygen 97 % 97 % MED[facility] ([facility], ) Diastolic blood 91 mm[Hg] 91 mm[Hg] [facility] (S t pressure [facility]) Systolic blood 136 mm[Hg] 136 mm[Hg] MED[facility] (St pressure [facility]) Heart rate 86 /min 86 /min [facility] ([facility] , ) Inhaled oxygen 97 % 97 % [facility] ([facility], ) Diastolic blood 91 mm[Hg] 91 mm[Hg] [facility] (S t pressure [facility]) Systolic blood 136 mm[Hg] 136 mm[Hg] MEDGEN (St pressure [facility]) Heart rate 86 /min 86 /min [facility] ([facility] , ) Inhaled oxygen 97 % 97 % MEDGEN (St concentration [facility]) Diastolic blood 91 mm[Hg] 91 mm[Hg] [facility] (S t pressure [facility] , ) Systolic blood 136 mm[Hg] 136 mm[Hg] MEDGEN (St pressure [facility] , ) Heart rate 86 /min 86 /min MED[facility] ([facility] , ) Inhaled oxygen 97 % 97 % MEDGEN ([facility]) Diastolic blood 91 mm[Hg] 91 mm[Hg] [facility] (S t pressure [facility]) Systolic blood 136 mm[Hg] 136 mm[Hg] MEDGEN (St pressure [facility] , ) Heart rate 86 /min 86 /min MED[facility] ([facility] , ) Inhaled oxygen 97 % 97 % MEDGEN ([facility]) Diastolic blood 91 mm[Hg] 91 mm[Hg] [facility] (S t pressure [facility]) Systolic blood 136 mm[Hg] 136 mm[Hg] MEDGEN (St pressure [facility] , ) Heart rate 86 /min 86 /min MED[facility] ([facility] , ) Inhaled oxygen 97 % 97 % MEDGEN ([facility]) Diastolic blood 91 mm[Hg] 91 mm[Hg] MEDGEN (S t pressure [facility]) Systolic blood 136 mm[Hg] 136 mm[Hg] MEDGEN (St pressure [facility] , ) Heart rate 86 /min 86 /min MED[facility] ([facility] , ) Inhaled oxygen 97 % 97 % MEDGEN ([facility]) Diastolic blood 91 mm[Hg] 91 mm[Hg] MEDGEN (S t pressure [facility] , ) Systolic blood 136 mm[Hg] 136 mm[Hg] MEDGEN (St pressure [facility] , ) Heart rate 86 /min 86 /min MED[facility] ([facility] , ) Inhaled oxygen 97 % 97 % MEDGEN ([facility], ) Diastolic blood 91 mm[Hg] 91 mm[Hg] MEDGEN (S t pressure [facility] , ) Systolic blood 136 mm[Hg] 136 mm[Hg] MEDGEN (St pressure [facility] , ) Heart rate 86 /min 86 /min [facility] ([facility] , ) Inhaled oxygen 97 % 97 % MEDGEN (St concentration [facility], [facility]) Diastolic blood 91 mm[Hg] 91 mm[Hg] MED[facility] (S t pressure [facility]) Systolic blood 136 mm[Hg] 136 mm[Hg] MEDGEN (St pressure [facility]) Heart rate 86 /min 86 /min [facility] ([facility] , ) Inhaled oxygen 97 % 97 % MEDGEN (St concentration [facility]) Diastolic blood 91 mm[Hg] 91 mm[Hg] MED[facility] (S t pressure [facility]) Systolic blood 136 mm[Hg] 136 mm[Hg] MEDGEN (St pressure [facility] , ) Heart rate 86 /min 86 /min [facility] ([facility] , ) Inhaled oxygen 97 % 97 % [facility] ([facility] Diastolic blood 91 mm[Hg] 91 mm[Hg] MED[facility] (S t pressure [facility]) Systolic blood 136 mm[Hg] 136 mm[Hg] MEDGEN (St pressure [facility] , ) Heart rate 86 /min 86 /min [facility] ([facility] , ) Inhaled oxygen 97 % 97 % [facility] ([facility] Diastolic blood 91 mm[Hg] 91 mm[Hg] MED[facility] (S t pressure [facility]) Systolic blood 136 mm[Hg] 136 mm[Hg] MEDGEN (St pressure [facility] , ) Heart rate 86 /min 86 /min [facility] ([facility] , ) Inhaled oxygen 97 % 97 % MEDGEN (St concentration [facility]) Diastolic blood 91 mm[Hg] 91 mm[Hg] MEDGEN (S t pressure [facility]) Systolic blood 136 mm[Hg] 136 mm[Hg] MEDGEN (St pressure [facility]) Heart rate 86 /min 86 /min [facility] ([facility] , ) Inhaled oxygen 97 % 97 % MEDGEN (St concentration [facility]) Diastolic blood 91 mm[Hg] 91 mm[Hg] MED[facility] (S t pressure [facility]) Systolic blood 136 mm[Hg] 136 mm[Hg] MEDGEN ([facility]) Heart rate 86 /min 86 /min [facility] ([facility]) Inhaled oxygen 97 % 97 % MEDGEN ([facility], ) Diastolic blood 91 mm[Hg] 91 mm[Hg] MEDGEN (S t pressure [facility] , ) Systolic blood 136 mm[Hg] 136 mm[Hg] MEDGEN ([facility]) Heart rate 91 /min 91 /min [facility] ([facility]) Respiratory rate 14 /min 14 /min MED[facility] ( [facility]) Body temperature 98.4 F 98.4 F MED[facility] ( [facility]) Inhaled oxygen 99 % 99 % MEDGEN ([facility]) Body mass index 22.3 kg/m2 22.3 kg/m2 MEDGEN (S t (BMI) [Ratio] [facility], ) Diastolic blood 85 mm[Hg] 85 mm[Hg] MEDGEN (S t pressure [facility]) Systolic blood 136 mm[Hg] 136 mm[Hg] MEDGEN ([facility]) Body weight 138 lb 138 lb MEDGEN ([facility]) Body height 66 in 66 in MEDGEN ([facility]) Heart rate 91 /min 91 /min [facility] ([facility]) Respiratory rate 14 /min 14 /min MED[facility] ( [facility]) Body temperature 98.4 F 98.4 F MED[facility] ( [facility]) Inhaled oxygen 99 % 99 % MEDGEN ([facility]) Body mass index 22.3 kg/m2 22.3 kg/m2 MEDGEN (S t (BMI) [Ratio] [facility], ) Diastolic blood 85 mm[Hg] 85 mm[Hg] MEDGEN (S t pressure [facility] , ) Systolic blood 136 mm[Hg] 136 mm[Hg] MEDGEN ([facility] , ) Body weight 138 lb 138 lb MEDGEN ([facility]) Body height 66 in 66 in MEDGEN ([facility]) Heart rate 91 /min 91 /min [facility] ([facility]) Respiratory rate 14 /min 14 /min MEDGEN ( [facility]) Body temperature 98.4 F 98.4 F MED[facility] ( [facility]) Inhaled oxygen 99 % 99 % MEDGEN ([facility], ) Body mass index 22.3 kg/m2 22.3 kg/m2 MEDGEN (S t (BMI) [Ratio] [facility], ) Diastolic blood 85 mm[Hg] 85 mm[Hg] MEDGEN (S t pressure [facility]) Systolic blood 136 mm[Hg] 136 mm[Hg] MEDGEN ([facility]) Body weight 138 lb 138 lb MEDGEN ([facility]) Body height 66 in 66 in MEDGEN ([facility]) Heart rate 91 /min 91 /min MED[facility] ([facility]) Respiratory rate 14 /min 14 /min MEDGEN ( [facility]) Body temperature 98.4 F 98.4 F MEDGEN ( [facility]) Inhaled oxygen 99 % 99 % MEDGEN ([facility], ) Body mass index 22.3 kg/m2 22.3 kg/m2 MEDGEN (S t (BMI) [Ratio] [facility], ) Diastolic blood 85 mm[Hg] 85 mm[Hg] MEDGEN (S pressure [facility] , ) Systolic blood 136 mm[Hg] 136 mm[Hg] MEDGEN ([facility] , ) Body weight 138 lb 138 lb MEDGEN ([facility]) Body height 66 in 66 in MEDGEN ([facility]) Heart rate 91 /min 91 /min MED[facility] ([facility]) Respiratory rate 14 /min 14 /min MEDGEN ( [facility]) Body temperature 98.4 F 98.4 F MEDGEN ( [facility]) Inhaled oxygen 99 % 99 % MEDGEN ([facility], ) Body mass index 22.3 kg/m2 22.3 kg/m2 MEDGEN (S t (BMI) [Ratio] [facility], ) Diastolic blood 85 mm[Hg] 85 mm[Hg] MEDGEN (S t pressure [facility] , ) Systolic blood 136 mm[Hg] 136 mm[Hg] MEDGEN (St [facility] , ) Body weight 138 lb 138 lb MEDGEN ([facility]) Body height 66 in 66 in MEDGEN ([facility]) Heart rate 91 /min 91 /min MEDGEN ([facility] , ) Respiratory rate 14 /min 14 /min MEDGEN ( [facility] , ) Body temperature 98.4 F 98.4 F MEDGEN ( [facility]) Inhaled oxygen 99 % 99 % MEDGEN ([facility], ) Body mass index 22.3 kg/m2 22.3 kg/m2 MEDGEN (S t (BMI) [Ratio] [facility], ) Diastolic blood 85 mm[Hg] 85 mm[Hg] MEDGEN (S t pressure [facility] , ) Systolic blood 136 mm[Hg] 136 mm[Hg] MEDGEN ([facility] , ) Body weight 138 lb 138 lb MEDGEN ([facility]) Body height 66 in 66 in MEDGEN ([facility]) Heart rate 91 /min 91 /min MEDGEN ([facility] , ) Respiratory rate 14 /min 14 /min MEDGEN ( [facility] , ) Body temperature 98.4 F 98.4 F MEDGEN ( [facility] , ) Inhaled oxygen 99 % 99 % MEDGEN ([facility], ) Body mass index 22.3 kg/m2 22.3 kg/m2 MEDGEN (S t (BMI) [Ratio] [facility], ) Diastolic blood 85 mm[Hg] 85 mm[Hg] MEDGEN (S t pressure [facility] , ) Systolic blood 136 mm[Hg] 136 mm[Hg] MEDGEN (St [facility] , ) Body weight 138 lb 138 lb MEDGEN ([facility]) Body height 66 in 66 in MEDGEN ([facility]) Heart rate 91 /min 91 /min MEDGEN ([facility] , ) Respiratory rate 14 /min 14 /min MEDGEN ( [facility]) Body temperature 98.4 F 98.4 F MEDGEN ( [facility]) Inhaled oxygen 99 % 99 % MEDGEN ([facility]) Body mass index 22.3 kg/m2 22.3 kg/m2 MEDGEN (S t (BMI) [Ratio] [facility], ) Diastolic blood 85 mm[Hg] 85 mm[Hg] MEDGEN (S t pressure [facility]) Systolic blood 136 mm[Hg] 136 mm[Hg] MEDGEN ([facility]) Body weight 138 lb 138 lb MEDGEN ([facility]) Body height 66 in 66 in MEDGEN ([facility]) Heart rate 91 /min 91 /min MEDGEN ([facility]) Respiratory rate 14 /min 14 /min MEDGEN ( [facility]) Body temperature 98.4 F 98.4 F MEDGEN ( [facility]) Inhaled oxygen 99 % 99 % MEDGEN ([facility]) Body mass index 22.3 kg/m2 22.3 kg/m2 MEDGEN (S t (BMI) [Ratio] [facility]) Diastolic blood 85 mm[Hg] 85 mm[Hg] MEDGEN (S [facility]) Systolic blood 136 mm[Hg] 136 mm[Hg] MEDGEN ([facility]) Body weight 138 lb 138 lb MEDGEN ([facility]) Body height 66 in 66 in MEDGEN ([facility]) Heart rate 91 /min 91 /min MEDGEN ([facility]) Respiratory rate 14 /min 14 /min MEDGEN ( [facility]) Body temperature 98.4 F 98.4 F MEDGEN ( [facility]) Inhaled oxygen 99 % 99 % MEDGEN ([facility]) Body mass index 22.3 kg/m2 22.3 kg/m2 MEDGEN (S t (BMI) [Ratio] [facility], ) Diastolic blood 85 mm[Hg] 85 mm[Hg] MEDGEN (S [facility]) Systolic blood 136 mm[Hg] 136 mm[Hg] MEDGEN (St [facility]) Body weight 138 lb 138 lb MEDGEN ([facility]) Body height 66 in 66 in MEDGEN ([facility]) Heart rate 91 /min 91 /min MEDGEN ([facility]) Respiratory rate 14 /min 14 /min MEDGEN ( [facility]) Body temperature 98.4 F 98.4 F MEDGEN ( [facility]) Inhaled oxygen 99 % 99 % MEDGEN ([facility], ) Body mass index 22.3 kg/m2 22.3 kg/m2 MEDGEN (S t (BMI) [Ratio] [facility], ) Diastolic blood 85 mm[Hg] 85 mm[Hg] MEDGEN (S t pressure [facility]) Systolic blood 136 mm[Hg] 136 mm[Hg] MEDGEN ([facility]) Body weight 138 lb 138 lb MEDGEN ([facility]) Body height 66 in 66 in MEDGEN ([facility]) Heart rate 91 /min 91 /min MED[facility] ([facility]) Respiratory rate 14 /min 14 /min MEDGEN ( [facility]) Body temperature 98.4 F 98.4 F MEDGEN ( [facility]) Inhaled oxygen 99 % 99 % MEDGEN ([facility], ) Body mass index 22.3 kg/m2 22.3 kg/m2 MEDGEN (S t (BMI) [Ratio] [facility], ) Diastolic blood 85 mm[Hg] 85 mm[Hg] MEDGEN (S t pressure [facility]) Systolic blood 136 mm[Hg] 136 mm[Hg] MEDGEN ([facility] , ) Body weight 138 lb 138 lb MEDGEN ([facility]) Body height 66 in 66 in MEDGEN ([facility]) Heart rate 91 /min 91 /min MED[facility] ([facility]) Respiratory rate 14 /min 14 /min MEDGEN ( [facility]) Body temperature 98.4 F 98.4 F MEDGEN ( [facility]) Inhaled oxygen 99 % 99 % MEDGEN ([facility]) Body mass index 22.3 kg/m2 22.3 kg/m2 MEDGEN (S t (BMI) [Ratio] [facility]) Diastolic blood 85 mm[Hg] 85 mm[Hg] MEDGEN (S t [facility]) Systolic blood 136 mm[Hg] 136 mm[Hg] MEDGEN ([facility]) Body weight 138 lb 138 lb MEDGEN ([facility]) Body height 66 in 66 in MEDGEN ([facility]) Heart rate 91 /min 91 /min MEDGEN ([facility]) Respiratory rate 14 /min 14 /min MEDGEN ( [facility]) Body temperature 98.4 F 98.4 F MEDGEN ( [facility]) Inhaled oxygen 99 % 99 % MEDGEN ([facility]) Body mass index 22.3 kg/m2 22.3 kg/m2 MEDGEN (S t (BMI) [Ratio] [facility]) Diastolic blood 85 mm[Hg] 85 mm[Hg] MEDGEN (S t [facility]) Systolic blood 136 mm[Hg] 136 mm[Hg] MEDGEN ([facility]) Body weight 138 lb 138 lb MEDGEN ([facility]) Body height 66 in 66 in MEDGEN ([facility]) Heart rate 91 /min 91 /min MEDGEN ([facility]) Respiratory rate 14 /min 14 /min MEDGEN ( [facility]) Body temperature 98.4 F 98.4 F MEDGEN ( [facility]) Inhaled oxygen 99 % 99 % MEDGEN ([facility]) Body mass index 22.3 kg/m2 22.3 kg/m2 MEDGEN (S t (BMI) [Ratio] [facility]) Diastolic blood 85 mm[Hg] 85 mm[Hg] MEDGEN (S t [facility]) Systolic blood 136 mm[Hg] 136 mm[Hg] MEDGEN ([facility]) Body weight 138 lb 138 lb MEDGEN ([facility]) Body height 66 in 66 in MEDGEN ([facility]) Heart rate 79 /min 79 /min MEDGEN ([facility]) Respiratory rate 14 /min 14 /min MEDGEN ( [facility]) Body temperature 98 F 98 F MEDGEN ( [facility]) Inhaled oxygen 100 % 100 % MEDGEN ([facility], ) Body mass index 22.3 kg/m2 22.3 kg/m2 MEDGEN (S t (BMI) [Ratio] [facility], ) Diastolic blood 68 mm[Hg] 68 mm[Hg] MEDGEN (S t [facility]) Systolic blood 129 mm[Hg] 129 mm[Hg] MEDGEN ([facility]) Body weight 138 lb 138 lb MEDGEN ([facility]) Body height 66 in 66 in MEDGEN ([facility]) Heart rate 79 /min 79 /min MEDGEN ([facility]) Respiratory rate 14 /min 14 /min MEDGEN ( [facility]) Body temperature 98 F 98 F MEDGEN ( [facility]) Inhaled oxygen 100 % 100 % MEDGEN ([facility], ) Body mass index 22.3 kg/m2 22.3 kg/m2 MEDGEN (S t (BMI) [Ratio] [facility], ) Diastolic blood 68 mm[Hg] 68 mm[Hg] MEDGEN (S t pressure [facility]) Systolic blood 129 mm[Hg] 129 mm[Hg] MEDGEN ([facility]) Body weight 138 lb 138 lb MEDGEN ([facility]) Body height 66 in 66 in MEDGEN ([facility]) Heart rate 79 /min 79 /min MEDGEN ([facility]) Respiratory rate 14 /min 14 /min MEDGEN ( [facility]) Body temperature 98 F 98 F MEDGEN ( [facility]) Inhaled oxygen 100 % 100 % MEDGEN ([facility]) Body mass index 22.3 kg/m2 22.3 kg/m2 MEDGEN (S t (BMI) [Ratio] [facility], ) Diastolic blood 68 mm[Hg] 68 mm[Hg] MEDGEN (S t pressure [facility]) Systolic blood 129 mm[Hg] 129 mm[Hg] MEDGEN ([facility]) Body weight 138 lb 138 lb MEDGEN ([facility]) Body height 66 in 66 in MEDGEN ([facility]) Heart rate 79 /min 79 /min MEDGEN ([facility]) Respiratory rate 14 /min 14 /min MEDGEN ( [facility]) Body temperature 98 F 98 F MEDGEN ( [facility]) Inhaled oxygen 100 % 100 % MEDGEN ([facility], ) Body mass index 22.3 kg/m2 22.3 kg/m2 MEDGEN (S t (BMI) [Ratio] [facility], ) Diastolic blood 68 mm[Hg] 68 mm[Hg] MEDGEN (S t pressure [facility]) Systolic blood 129 mm[Hg] 129 mm[Hg] MEDGEN ([facility]) Body weight 138 lb 138 lb MEDGEN ([facility]) Body height 66 in 66 in MEDGEN ([facility]) Heart rate 79 /min 79 /min MEDGEN ([facility]) Respiratory rate 14 /min 14 /min MEDGEN ( [facility]) Body temperature 98 F 98 F MEDGEN ( [facility]) Inhaled oxygen 100 % 100 % MEDGEN ([facility], ) Body mass index 22.3 kg/m2 22.3 kg/m2 MEDGEN (S t (BMI) [Ratio] [facility], ) Diastolic blood 68 mm[Hg] 68 mm[Hg] MEDGEN (S t pressure [facility]) Systolic blood 129 mm[Hg] 129 mm[Hg] MEDGEN ([facility]) Body weight 138 lb 138 lb MEDGEN ([facility]) Body height 66 in 66 in MEDGEN ([facility]) Heart rate 79 /min 79 /min MEDGEN ([facility]) Respiratory rate 14 /min 14 /min MEDGEN ( [facility]) Body temperature 98 F 98 F MEDGEN ( [facility]) Inhaled oxygen 100 % 100 % MEDGEN ([facility], ) Body mass index 22.3 kg/m2 22.3 kg/m2 MEDGEN (S t (BMI) [Ratio] [facility], ) Diastolic blood 68 mm[Hg] 68 mm[Hg] MEDGEN (S t pressure [facility]) Systolic blood 129 mm[Hg] 129 mm[Hg] MEDGEN ([facility]) Body weight 138 lb 138 lb MEDGEN ([facility]) Body height 66 in 66 in MEDGEN ([facility]) Heart rate 79 /min 79 /min MEDGEN ([facility]) Respiratory rate 14 /min 14 /min MEDGEN ( [facility]) Body temperature 98 F 98 F MEDGEN ( [facility]) Inhaled oxygen 100 % 100 % MEDGEN ([facility]) Body mass index 22.3 kg/m2 22.3 kg/m2 MEDGEN (S t (BMI) [Ratio] [facility], ) Diastolic blood 68 mm[Hg] 68 mm[Hg] MEDGEN (S t pressure [facility]) Systolic blood 129 mm[Hg] 129 mm[Hg] MEDGEN ([facility]) Body weight 138 lb 138 lb MEDGEN ([facility]) Body height 66 in 66 in MEDGEN ([facility]) Heart rate 79 /min 79 /min MEDGEN ([facility]) Respiratory rate 14 /min 14 /min MEDGEN ( [facility]) Body temperature 98 F 98 F MEDGEN ( [facility]) Inhaled oxygen 100 % 100 % MEDGEN ([facility], ) Body mass index 22.3 kg/m2 22.3 kg/m2 MEDGEN (S t (BMI) [Ratio] [facility], ) Diastolic blood 68 mm[Hg] 68 mm[Hg] MEDGEN (S t pressure [facility]) Systolic blood 129 mm[Hg] 129 mm[Hg] MEDGEN (St [facility]) Body weight 138 lb 138 lb MEDGEN ([facility]) Body height 66 in 66 in MEDGEN ([facility]) Heart rate 79 /min 79 /min MEDGEN ([facility]) Respiratory rate 14 /min 14 /min MEDGEN ( [facility]) Body temperature 98 F 98 F MEDGEN ( [facility]) Inhaled oxygen 100 % 100 % MEDGEN ([facility], ) Body mass index 22.3 kg/m2 22.3 kg/m2 MEDGEN (S t (BMI) [Ratio] [facility], ) Diastolic blood 68 mm[Hg] 68 mm[Hg] MEDGEN (S t pressure [facility]) Systolic blood 129 mm[Hg] 129 mm[Hg] MEDGEN ([facility]) Body weight 138 lb 138 lb MEDGEN ([facility]) Body height 66 in 66 in MEDGEN ([facility]) Heart rate 79 /min 79 /min MEDGEN ([facility]) Respiratory rate 14 /min 14 /min MEDGEN ( [facility]) Body temperature 98 F 98 F MEDGEN ( [facility]) Inhaled oxygen 100 % 100 % MEDGEN ([facility], ) Body mass index 22.3 kg/m2 22.3 kg/m2 MEDGEN (S t (BMI) [Ratio] [facility], ) Diastolic blood 68 mm[Hg] 68 mm[Hg] MEDGEN (S t pressure [facility]) Systolic blood 129 mm[Hg] 129 mm[Hg] MEDGEN ([facility]) Body weight 138 lb 138 lb MEDGEN ([facility]) Body height 66 in 66 in MEDGEN ([facility]) Heart rate 79 /min 79 /min MEDGEN ([facility]) Respiratory rate 14 /min 14 /min MEDGEN ( [facility]) Body temperature 98 F 98 F MEDGEN ( [facility]) Inhaled oxygen 100 % 100 % MEDGEN ([facility], ) Body mass index 22.3 kg/m2 22.3 kg/m2 MEDGEN (S t (BMI) [Ratio] [facility], ) Diastolic blood 68 mm[Hg] 68 mm[Hg] MEDGEN (S t pressure [facility]) Systolic blood 129 mm[Hg] 129 mm[Hg] MEDGEN ([facility]) Body weight 138 lb 138 lb MEDGEN ([facility]) Body height 66 in 66 in MEDGEN ([facility]) Heart rate 79 /min 79 /min MEDGEN ([facility]) Respiratory rate 14 /min 14 /min MEDGEN ( [facility]) Body temperature 98 F 98 F MEDGEN ( [facility]) Inhaled oxygen 100 % 100 % MEDGEN ([facility], ) Body mass index 22.3 kg/m2 22.3 kg/m2 MEDGEN (S t (BMI) [Ratio] [facility], ) Diastolic blood 68 mm[Hg] 68 mm[Hg] MEDGEN (S t pressure [facility]) Systolic blood 129 mm[Hg] 129 mm[Hg] MEDGEN ([facility]) Body weight 138 lb 138 lb MEDGEN ([facility]) Body height 66 in 66 in MEDGEN ([facility]) Heart rate 79 /min 79 /min MEDGEN ([facility]) Respiratory rate 14 /min 14 /min MEDGEN ( [facility]) Body temperature 98 F 98 F MEDGEN ( [facility]) Inhaled oxygen 100 % 100 % MEDGEN ([facility], ) Body mass index 22.3 kg/m2 22.3 kg/m2 MEDGEN (S t (BMI) [Ratio] [facility], ) Diastolic blood 68 mm[Hg] 68 mm[Hg] MEDGEN (S t pressure [facility]) Systolic blood 129 mm[Hg] 129 mm[Hg] MEDGEN ([facility]) Body weight 138 lb 138 lb MEDGEN ([facility]) Body height 66 in 66 in MEDGEN ([facility]) Heart rate 79 /min 79 /min MEDGEN ([facility]) Respiratory rate 14 /min 14 /min MEDGEN ( [facility]) Body temperature 98 F 98 F MEDGEN ( [facility]) Inhaled oxygen 100 % 100 % MEDGEN ([facility], ) Body mass index 22.3 kg/m2 22.3 kg/m2 MEDGEN (S t (BMI) [Ratio] [facility], ) Diastolic blood 68 mm[Hg] 68 mm[Hg] MEDGEN (S t [facility]) Systolic blood 129 mm[Hg] 129 mm[Hg] MEDGEN ([facility]) Body weight 138 lb 138 lb MEDGEN ([facility]) Body height 66 in 66 in MEDGEN ([facility]) Heart rate 79 /min 79 /min MEDGEN ([facility]) Respiratory rate 14 /min 14 /min MEDGEN ( [facility]) Body temperature 98 F 98 F MEDGEN ( [facility]) Inhaled oxygen 100 % 100 % MEDGEN ([facility], ) Body mass index 22.3 kg/m2 22.3 kg/m2 MEDGEN (S t (BMI) [Ratio] [facility], ) Diastolic blood 68 mm[Hg] 68 mm[Hg] MEDGEN (S t [facility]) Systolic blood 129 mm[Hg] 129 mm[Hg] MEDGEN ([facility]) Body weight 138 lb 138 lb MEDGEN ([facility]) Body height 66 in 66 in MEDGEN ([facility]) Heart rate 79 /min 79 /min MEDGEN ([facility]) Respiratory rate 16 /min 16 /min MEDGEN ( [facility]) Body temperature 97.9 F 97.9 F MEDGEN ( [facility]) Inhaled oxygen 100 % 100 % MEDGEN ([facility], ) Body mass index 22.3 kg/m2 22.3 kg/m2 MEDGEN (S t (BMI) [Ratio] [facility], ) Diastolic blood 79 mm[Hg] 79 mm[Hg] MEDGEN (S t pressure [facility]) Systolic blood 114 mm[Hg] 114 mm[Hg] MEDGEN ([facility]) Body weight 138 lb 138 lb MEDGEN ([facility]) Body height 66 in 66 in MEDGEN ([facility]) Heart rate 79 /min 79 /min MEDGEN ([facility]) Respiratory rate 16 /min 16 /min MEDGEN ( [facility]) Body temperature 97.9 F 97.9 F MEDGEN ( [facility]) Inhaled oxygen 100 % 100 % MEDGEN ([facility]) Body mass index 22.3 kg/m2 22.3 kg/m2 MEDGEN (S t (BMI) [Ratio] [facility], ) Diastolic blood 79 mm[Hg] 79 mm[Hg] MEDGEN (S t [facility]) Systolic blood 114 mm[Hg] 114 mm[Hg] MEDGEN ([facility]) Body weight 138 lb 138 lb MEDGEN ([facility]) Body height 66 in 66 in MEDGEN ([facility]) Heart rate 79 /min 79 /min MEDGEN ([facility]) Respiratory rate 16 /min 16 /min MEDGEN ( [facility]) Body temperature 97.9 F 97.9 F MEDGEN ( [facility]) Inhaled oxygen 100 % 100 % MEDGEN ([facility], ) Body mass index 22.3 kg/m2 22.3 kg/m2 MEDGEN (S t (BMI) [Ratio] [facility], ) Diastolic blood 79 mm[Hg] 79 mm[Hg] MEDGEN (S t pressure [facility]) Systolic blood 114 mm[Hg] 114 mm[Hg] MEDGEN ([facility]) Body weight 138 lb 138 lb MEDGEN ([facility]) Body height 66 in 66 in MEDGEN ([facility]) Heart rate 79 /min 79 /min MEDGEN ([facility]) Respiratory rate 16 /min 16 /min MEDGEN ( [facility]) Body temperature 97.9 F 97.9 F MEDGEN ( [facility]) Inhaled oxygen 100 % 100 % MEDGEN ([facility]) Body mass index 22.3 kg/m2 22.3 kg/m2 MEDGEN (S t (BMI) [Ratio] [facility]) Diastolic blood 79 mm[Hg] 79 mm[Hg] MEDGEN (S t pressure [facility]) Systolic blood 114 mm[Hg] 114 mm[Hg] MEDGEN ([facility]) Body weight 138 lb 138 lb MEDGEN ([facility]) Body height 66 in 66 in MEDGEN ([facility]) Heart rate 79 /min 79 /min MEDGEN ([facility]) Respiratory rate 16 /min 16 /min MEDGEN ( [facility]) Body temperature 97.9 F 97.9 F MEDGEN ( [facility]) Inhaled oxygen 100 % 100 % MEDGEN ([facility]) Body mass index 22.3 kg/m2 22.3 kg/m2 MEDGEN (S t (BMI) [Ratio] [facility]) Diastolic blood 79 mm[Hg] 79 mm[Hg] MEDGEN (S t pressure [facility]) Systolic blood 114 mm[Hg] 114 mm[Hg] MEDGEN ([facility]) Body weight 138 lb 138 lb MEDGEN ([facility]) Body height 66 in 66 in MEDGEN ([facility]) Heart rate 79 /min 79 /min MEDGEN ([facility]) Respiratory rate 16 /min 16 /min MEDGEN ( [facility]) Body temperature 97.9 F 97.9 F MEDGEN ( [facility]) Inhaled oxygen 100 % 100 % MEDGEN ([facility]) Body mass index 22.3 kg/m2 22.3 kg/m2 MEDGEN (S t (BMI) [Ratio] [facility], ) Diastolic blood 79 mm[Hg] 79 mm[Hg] MEDGEN (S t pressure [facility]) Systolic blood 114 mm[Hg] 114 mm[Hg] MEDGEN ([facility]) Body weight 138 lb 138 lb MEDGEN ([facility]) Body height 66 in 66 in MEDGEN ([facility]) Heart rate 79 /min 79 /min MEDGEN ([facility]) Respiratory rate 16 /min 16 /min MEDGEN ( [facility]) Body temperature 97.9 F 97.9 F MEDGEN ( [facility]) Inhaled oxygen 100 % 100 % MEDGEN ([facility], ) Body mass index 22.3 kg/m2 22.3 kg/m2 MEDGEN (S t (BMI) [Ratio] [facility], ) Diastolic blood 79 mm[Hg] 79 mm[Hg] MEDGEN (S t pressure [facility]) Systolic blood 114 mm[Hg] 114 mm[Hg] MEDGEN ([facility]) Body weight 138 lb 138 lb MEDGEN ([facility]) Body height 66 in 66 in MEDGEN ([facility]) Heart rate 79 /min 79 /min MEDGEN ([facility]) Respiratory rate 16 /min 16 /min MEDGEN ( [facility]) Body temperature 97.9 F 97.9 F MEDGEN ( [facility]) Inhaled oxygen 100 % 100 % MEDGEN ([facility], ) Body mass index 22.3 kg/m2 22.3 kg/m2 MEDGEN (S t (BMI) [Ratio] [facility], ) Diastolic blood 79 mm[Hg] 79 mm[Hg] MEDGEN (S t pressure [facility]) Systolic blood 114 mm[Hg] 114 mm[Hg] MEDGEN ([facility]) Body weight 138 lb 138 lb MEDGEN ([facility]) Body height 66 in 66 in MEDGEN ([facility]) Heart rate 79 /min 79 /min MEDGEN ([facility]) Respiratory rate 16 /min 16 /min MEDGEN ( [facility]) Body temperature 97.9 F 97.9 F MEDGEN ( [facility]) Inhaled oxygen 100 % 100 % MEDGEN ([facility], ) Body mass index 22.3 kg/m2 22.3 kg/m2 MEDGEN (S t (BMI) [Ratio] [facility]) Diastolic blood 79 mm[Hg] 79 mm[Hg] MEDGEN (S t [facility]) Systolic blood 114 mm[Hg] 114 mm[Hg] MEDGEN ([facility]) Body weight 138 lb 138 lb MEDGEN ([facility]) Body height 66 in 66 in MEDGEN ([facility]) Heart rate 79 /min 79 /min MEDGEN ([facility]) Respiratory rate 16 /min 16 /min MEDGEN ( [facility]) Body temperature 97.9 F 97.9 F MEDGEN ( [facility]) Inhaled oxygen 100 % 100 % MEDGEN ([facility], ) Body mass index 22.3 kg/m2 22.3 kg/m2 MEDGEN (S t (BMI) [Ratio] [facility]) Diastolic blood 79 mm[Hg] 79 mm[Hg] MEDGEN (S t [facility]) Systolic blood 114 mm[Hg] 114 mm[Hg] MEDGEN ([facility]) Body weight 138 lb 138 lb MEDGEN ([facility]) Body height 66 in 66 in MEDGEN ([facility]) Heart rate 79 /min 79 /min MEDGEN ([facility]) Respiratory rate 16 /min 16 /min MEDGEN ( [facility]) Body temperature 97.9 F 97.9 F MEDGEN ( [facility]) Inhaled oxygen 100 % 100 % MEDGEN ([facility]) Body mass index 22.3 kg/m2 22.3 kg/m2 MEDGEN (S t (BMI) [Ratio] [facility]) Diastolic blood 79 mm[Hg] 79 mm[Hg] MEDGEN (S t pressure [facility]) Systolic blood 114 mm[Hg] 114 mm[Hg] MEDGEN ([facility]) Body weight 138 lb 138 lb MEDGEN ([facility]) Body height 66 in 66 in MEDGEN ([facility]) Heart rate 79 /min 79 /min MEDGEN ([facility]) Respiratory rate 16 /min 16 /min MEDGEN ( [facility]) Body temperature 97.9 F 97.9 F MEDGEN ( [facility]) Inhaled oxygen 100 % 100 % MEDGEN ([facility], ) Body mass index 22.3 kg/m2 22.3 kg/m2 MEDGEN (S t (BMI) [Ratio] [facility], ) Diastolic blood 79 mm[Hg] 79 mm[Hg] MEDGEN (S t [facility]) Systolic blood 114 mm[Hg] 114 mm[Hg] MEDGEN ([facility]) Body weight 138 lb 138 lb MEDGEN ([facility]) Body height 66 in 66 in MEDGEN ([facility]) Heart rate 79 /min 79 /min MEDGEN ([facility]) Respiratory rate 16 /min 16 /min MEDGEN ( [facility]) Body temperature 97.9 F 97.9 F MEDGEN ( [facility]) Inhaled oxygen 100 % 100 % MEDGEN ([facility], ) Body mass index 22.3 kg/m2 22.3 kg/m2 MEDGEN (S t (BMI) [Ratio] [facility], ) Diastolic blood 79 mm[Hg] 79 mm[Hg] MEDGEN (S t pressure [facility]) Systolic blood 114 mm[Hg] 114 mm[Hg] MEDGEN ([facility]) Body weight 138 lb 138 lb MEDGEN ([facility]) Body height 66 in 66 in MEDGEN ([facility]) Heart rate 79 /min 79 /min MEDGEN ([facility]) Respiratory rate 16 /min 16 /min MEDGEN ( [facility]) Body temperature 97.9 F 97.9 F MEDGEN ( [facility]) Inhaled oxygen 100 % 100 % MEDGEN ([facility], ) Body mass index 22.3 kg/m2 22.3 kg/m2 MEDGEN (S t (BMI) [Ratio] [facility], ) Diastolic blood 79 mm[Hg] 79 mm[Hg] MEDGEN (S t pressure [facility]) Systolic blood 114 mm[Hg] 114 mm[Hg] MEDGEN ([facility]) Body weight 138 lb 138 lb MEDGEN ([facility]) Body height 66 in 66 in MEDGEN ([facility]) Heart rate 79 /min 79 /min MEDGEN ([facility]) Respiratory rate 16 /min 16 /min MEDGEN ( [facility]) Body temperature 97.9 F 97.9 F MEDGEN ( [facility]) Inhaled oxygen 100 % 100 % MEDGEN ([facility]) Body mass index 22.3 kg/m2 22.3 kg/m2 MEDGEN (S t (BMI) [Ratio] [facility], ) Diastolic blood 79 mm[Hg] 79 mm[Hg] MEDGEN (S t [facility]) Systolic blood 114 mm[Hg] 114 mm[Hg] MEDGEN ([facility]) Body weight 138 lb 138 lb MEDGEN ([facility]) Body height 66 in 66 in MEDGEN ([facility]) Heart rate 80 /min 80 /min MEDGEN ([facility]) Body temperature 98.2 F 98.2 F MEDGEN ( [facility]) Inhaled oxygen 100 % 100 % MEDGEN ([facility]) Body mass index 22.9 kg/m2 22.9 kg/m2 MEDGEN (S t (BMI) [Ratio] [facility]) Diastolic blood 74 mm[Hg] 74 mm[Hg] MEDGEN (S t pressure [facility]) Systolic blood 110 mm[Hg] 110 mm[Hg] MEDGEN ([facility]) Body weight 142 lb 142 lb MEDGEN ([facility]) Body height 66 in 66 in MEDGEN ([facility]) Heart rate 80 /min 80 /min MEDGEN ([facility]) Body temperature 98.2 F 98.2 F MEDGEN ( [facility]) Inhaled oxygen 100 % 100 % MEDGEN ([facility], ) Body mass index 22.9 kg/m2 22.9 kg/m2 MEDGEN (S t (BMI) [Ratio] [facility], ) Diastolic blood 74 mm[Hg] 74 mm[Hg] MEDGEN (S t pressure [facility]) Systolic blood 110 mm[Hg] 110 mm[Hg] MEDGEN ([facility]) Body weight 142 lb 142 lb MEDGEN ([facility]) Body height 66 in 66 in MEDGEN ([facility]) Heart rate 80 /min 80 /min MEDGEN ([facility]) Body temperature 98.2 F 98.2 F MEDGEN ( [facility]) Inhaled oxygen 100 % 100 % MEDGEN ([facility]) Body mass index 22.9 kg/m2 22.9 kg/m2 MEDGEN (S t (BMI) [Ratio] [facility]) Diastolic blood 74 mm[Hg] 74 mm[Hg] MEDGEN (S t pressure [facility]) Systolic blood 110 mm[Hg] 110 mm[Hg] MEDGEN ([facility]) Body weight 142 lb 142 lb MEDGEN ([facility]) Body height 66 in 66 in MEDGEN ([facility]) Heart rate 80 /min 80 /min MEDGEN ([facility]) Body temperature 98.2 F 98.2 F MEDGEN ( [facility]) Inhaled oxygen 100 % 100 % MEDGEN ([facility], ) Body mass index 22.9 kg/m2 22.9 kg/m2 MEDGEN (S t (BMI) [Ratio] [facility], ) Diastolic blood 74 mm[Hg] 74 mm[Hg] MEDGEN (S t pressure [facility]) Systolic blood 110 mm[Hg] 110 mm[Hg] MEDGEN ([facility]) Body weight 142 lb 142 lb MEDGEN ([facility]) Body height 66 in 66 in MEDGEN ([facility]) Heart rate 80 /min 80 /min MEDGEN ([facility]) Body temperature 98.2 F 98.2 F MEDGEN ( [facility]) Inhaled oxygen 100 % 100 % MEDGEN ([facility], ) Body mass index 22.9 kg/m2 22.9 kg/m2 MEDGEN (S t (BMI) [Ratio] [facility], ) Diastolic blood 74 mm[Hg] 74 mm[Hg] MEDGEN (S t pressure [facility]) Systolic blood 110 mm[Hg] 110 mm[Hg] MEDGEN ([facility]) Body weight 142 lb 142 lb MEDGEN ([facility]) Body height 66 in 66 in MEDGEN ([facility]) Heart rate 80 /min 80 /min MEDGEN ([facility]) Body temperature 98.2 F 98.2 F MEDGEN ( [facility]) Inhaled oxygen 100 % 100 % MEDGEN ([facility]) Body mass index 22.9 kg/m2 22.9 kg/m2 MEDGEN (S t (BMI) [Ratio] [facility], ) Diastolic blood 74 mm[Hg] 74 mm[Hg] MEDGEN (S t pressure [facility]) Systolic blood 110 mm[Hg] 110 mm[Hg] MEDGEN ([facility]) Body weight 142 lb 142 lb MEDGEN ([facility]) Body height 66 in 66 in MEDGEN ([facility]) Heart rate 80 /min 80 /min MEDGEN ([facility]) Body temperature 98.2 F 98.2 F MEDGEN ( [facility]) Inhaled oxygen 100 % 100 % MEDGEN ([facility], ) Body mass index 22.9 kg/m2 22.9 kg/m2 MEDGEN (S t (BMI) [Ratio] [facility], ) Diastolic blood 74 mm[Hg] 74 mm[Hg] MEDGEN (S t pressure [facility]) Systolic blood 110 mm[Hg] 110 mm[Hg] MEDGEN ([facility]) Body weight 142 lb 142 lb MEDGEN ([facility]) Body height 66 in 66 in MEDGEN ([facility]) Heart rate 80 /min 80 /min MEDGEN ([facility]) Body temperature 98.2 F 98.2 F MEDGEN ( [facility]) Inhaled oxygen 100 % 100 % MEDGEN ([facility], ) Body mass index 22.9 kg/m2 22.9 kg/m2 MEDGEN (S t (BMI) [Ratio] [facility], ) Diastolic blood 74 mm[Hg] 74 mm[Hg] MEDGEN ([facility]) Systolic blood 110 mm[Hg] 110 mm[Hg] MEDGEN ([facility]) Body weight 142 lb 142 lb MEDGEN ([facility]) Body height 66 in 66 in MEDGEN ([facility]) Heart rate 80 /min 80 /min MEDGEN ([facility]) Body temperature 98.2 F 98.2 F MEDGEN ( [facility]) Inhaled oxygen 100 % 100 % MEDGEN ([facility]) Body mass index 22.9 kg/m2 22.9 kg/m2 MEDGEN (S t (BMI) [Ratio] [facility], ) Diastolic blood 74 mm[Hg] 74 mm[Hg] MEDGEN (S t pressure [facility]) Systolic blood 110 mm[Hg] 110 mm[Hg] MEDGEN ([facility]) Body weight 142 lb 142 lb MEDGEN ([facility]) Body height 66 in 66 in MEDGEN ([facility]) Heart rate 80 /min 80 /min MEDGEN ([facility]) Body temperature 98.2 F 98.2 F MEDGEN ( [facility]) Inhaled oxygen 100 % 100 % MEDGEN ([facility], ) Body mass index 22.9 kg/m2 22.9 kg/m2 MEDGEN (S t (BMI) [Ratio] [facility], ) Diastolic blood 74 mm[Hg] 74 mm[Hg] MEDGEN (S t pressure [facility]) Systolic blood 110 mm[Hg] 110 mm[Hg] MEDGEN ([facility]) Body weight 142 lb 142 lb MEDGEN ([facility]) Body height 66 in 66 in MEDGEN ([facility]) Heart rate 80 /min 80 /min MEDGEN ([facility]) Body temperature 98.2 F 98.2 F MEDGEN ( [facility]) Inhaled oxygen 100 % 100 % MEDGEN ([facility], ) Body mass index 22.9 kg/m2 22.9 kg/m2 MEDGEN (S t (BMI) [Ratio] [facility], ) Diastolic blood 74 mm[Hg] 74 mm[Hg] MEDGEN (S t pressure [facility]) Systolic blood 110 mm[Hg] 110 mm[Hg] MEDGEN ([facility]) Body weight 142 lb 142 lb MEDGEN ([facility]) Body height 66 in 66 in MEDGEN ([facility]) Heart rate 80 /min 80 /min MEDGEN ([facility]) Body temperature 98.2 F 98.2 F MEDGEN ( [facility]) Inhaled oxygen 100 % 100 % MEDGEN ([facility]) Body mass index 22.9 kg/m2 22.9 kg/m2 MEDGEN (S t (BMI) [Ratio] [facility], ) Diastolic blood 74 mm[Hg] 74 mm[Hg] MEDGEN (S t pressure [facility]) Systolic blood 110 mm[Hg] 110 mm[Hg] MEDGEN ([facility]) Body weight 142 lb 142 lb MEDGEN ([facility]) Body height 66 in 66 in MEDGEN ([facility]) Heart rate 80 /min 80 /min MEDGEN ([facility]) Body temperature 98.2 F 98.2 F MEDGEN ( [facility]) Inhaled oxygen 100 % 100 % MEDGEN ([facility]) Body mass index 22.9 kg/m2 22.9 kg/m2 MEDGEN (S t (BMI) [Ratio] [facility], ) Diastolic blood 74 mm[Hg] 74 mm[Hg] MEDGEN (S t pressure [facility]) Systolic blood 110 mm[Hg] 110 mm[Hg] MEDGEN ([facility]) Body weight 142 lb 142 lb MEDGEN ([facility]) Body height 66 in 66 in MEDGEN ([facility]) Heart rate 80 /min 80 /min MEDGEN ([facility]) Body temperature 98.2 F 98.2 F MEDGEN ( [facility]) Inhaled oxygen 100 % 100 % MEDGEN ([facility], ) Body mass index 22.9 kg/m2 22.9 kg/m2 MEDGEN (S t (BMI) [Ratio] [facility], ) Diastolic blood 74 mm[Hg] 74 mm[Hg] MEDGEN (S [facility]) Systolic blood 110 mm[Hg] 110 mm[Hg] MEDGEN ([facility]) Body weight 142 lb 142 lb MEDGEN ([facility]) Body height 66 in 66 in MEDGEN ([facility]) Heart rate 80 /min 80 /min MEDGEN ([facility]) Body temperature 98.2 F 98.2 F MEDGEN ( [facility]) Inhaled oxygen 100 % 100 % MEDGEN ([facility], ) Body mass index 22.9 kg/m2 22.9 kg/m2 MEDGEN (S t (BMI) [Ratio] [facility], ) Diastolic blood 74 mm[Hg] 74 mm[Hg] MEDGEN (S t [facility]) Systolic blood 110 mm[Hg] 110 mm[Hg] MEDGEN ([facility]) Body weight 142 lb 142 lb MEDGEN ([facility]) Body height 66 in 66 in MEDGEN ([facility]) Heart rate 87 /min 87 /min MEDGEN ([facility]) Respiratory rate 16 /min 16 /min MEDGEN ( [facility]) Body temperature 97.6 F 97.6 F MEDGEN ( [facility]) Inhaled oxygen 100 % 100 % MEDGEN ([facility], ) Body mass index 22.9 kg/m2 22.9 kg/m2 MEDGEN (S t (BMI) [Ratio] [facility], ) Diastolic blood 87 mm[Hg] 87 mm[Hg] MEDGEN (S t pressure [facility] , ) Systolic blood 126 mm[Hg] 126 mm[Hg] MEDGEN ([facility] , ) Body weight 142 lb 142 lb MEDGEN ([facility]) Body height 66 in 66 in MEDGEN ([facility]) Heart rate 87 /min 87 /min MEDGEN ([facility]) Respiratory rate 16 /min 16 /min MEDGEN ( [facility]) Body temperature 97.6 F 97.6 F MEDGEN ( [facility]) Inhaled oxygen 100 % 100 % MEDGEN ([facility], ) Body mass index 22.9 kg/m2 22.9 kg/m2 MEDGEN (S t (BMI) [Ratio] [facility], ) Diastolic blood 87 mm[Hg] 87 mm[Hg] MEDGEN (S t pressure [facility]) Systolic blood 126 mm[Hg] 126 mm[Hg] MEDGEN ([facility]) Body weight 142 lb 142 lb MEDGEN ([facility]) Body height 66 in 66 in MEDGEN ([facility]) Diastolic blood 87 mm[Hg] 87 mm[Hg] MEDGEN (S t pressure [facility]) Systolic blood 126 mm[Hg] 126 mm[Hg] MEDGEN ([facility]) Body weight 142 lb 142 lb MEDGEN ([facility]) Body height 66 in 66 in MEDGEN ([facility]) Heart rate 87 /min 87 /min MEDGEN ([facility]) Respiratory rate 16 /min 16 /min MEDGEN ( [facility]) Body temperature 97.6 F 97.6 F MEDGEN ( [facility]) Inhaled oxygen 100 % 100 % MEDGEN ([facility], ) Body mass index 22.9 kg/m2 22.9 kg/m2 MEDGEN (S t (BMI) [Ratio] [facility], ) Diastolic blood 87 mm[Hg] 87 mm[Hg] MEDGEN (S t [facility]) Systolic blood 126 mm[Hg] 126 mm[Hg] MEDGEN ([facility]) Body weight 142 lb 142 lb MEDGEN ([facility]) Body height 66 in 66 in MEDGEN ([facility]) Heart rate 87 /min 87 /min MEDGEN ([facility]) Respiratory rate 16 /min 16 /min MEDGEN ( [facility]) Body temperature 97.6 F 97.6 F MEDGEN ( [facility]) Inhaled oxygen 100 % 100 % MEDGEN ([facility]) Body mass index 22.9 kg/m2 22.9 kg/m2 MEDGEN (S t (BMI) [Ratio] [facility], ) Systolic blood 126 mm[Hg] 126 mm[Hg] MEDGEN ([facility]) Body weight 142 lb 142 lb MEDGEN ([facility]) Body height 66 in 66 in MEDGEN ([facility]) Heart rate 87 /min 87 /min MEDGEN ([facility]) Respiratory rate 16 /min 16 /min MEDGEN ( [facility]) Body temperature 97.6 F 97.6 F MEDGEN ( [facility]) Inhaled oxygen 100 % 100 % MEDGEN ([facility], ) Body mass index 22.9 kg/m2 22.9 kg/m2 MEDGEN (S t (BMI) [Ratio] [facility], ) Diastolic blood 87 mm[Hg] 87 mm[Hg] MEDGEN (S t [facility]) Heart rate 87 /min 87 /min MEDGEN ([facility]) Respiratory rate 16 /min 16 /min MEDGEN ( [facility]) Body temperature 97.6 F 97.6 F MEDGEN ( [facility]) Inhaled oxygen 100 % 100 % MEDGEN ([facility], ) Body mass index 22.9 kg/m2 22.9 kg/m2 MEDGEN (S t (BMI) [Ratio] [facility], ) Diastolic blood 87 mm[Hg] 87 mm[Hg] MEDGEN (S t [facility]) Systolic blood 126 mm[Hg] 126 mm[Hg] MEDGEN ([facility]) Body weight 142 lb 142 lb MEDGEN ([facility]) Body height 66 in 66 in MEDGEN ([facility]) Heart rate 87 /min 87 /min MEDGEN ([facility]) Respiratory rate 16 /min 16 /min MEDGEN ( [facility]) Body temperature 97.6 F 97.6 F MEDGEN ( [facility]) Inhaled oxygen 100 % 100 % MEDGEN ([facility], ) Body mass index 22.9 kg/m2 22.9 kg/m2 MEDGEN (S t (BMI) [Ratio] [facility], ) Diastolic blood 87 mm[Hg] 87 mm[Hg] MEDGEN ([facility]) Systolic blood 126 mm[Hg] 126 mm[Hg] MEDGEN ([facility]) Body weight 142 lb 142 lb MEDGEN ([facility]) Body height 66 in 66 in MEDGEN ([facility]) Heart rate 87 /min 87 /min MEDGEN ([facility]) Respiratory rate 16 /min 16 /min MEDGEN ( [facility]) Body temperature 97.6 F 97.6 F MEDGEN ( [facility]) Inhaled oxygen 100 % 100 % MEDGEN ([facility], ) Body mass index 22.9 kg/m2 22.9 kg/m2 MEDGEN (S t (BMI) [Ratio] [facility], ) Diastolic blood 87 mm[Hg] 87 mm[Hg] MEDGEN (S t [facility]) Systolic blood 126 mm[Hg] 126 mm[Hg] MEDGEN ([facility]) Body weight 142 lb 142 lb MEDGEN ([facility]) Body height 66 in 66 in MEDGEN ([facility]) Heart rate 87 /min 87 /min MEDGEN ([facility]) Respiratory rate 16 /min 16 /min MEDGEN ( [facility]) Body temperature 97.6 F 97.6 F MEDGEN ( [facility]) Inhaled oxygen 100 % 100 % MEDGEN ([facility], ) Body mass index 22.9 kg/m2 22.9 kg/m2 MEDGEN (S t (BMI) [Ratio] [facility], ) Diastolic blood 87 mm[Hg] 87 mm[Hg] MEDGEN (S t pressure [facility]) Systolic blood 126 mm[Hg] 126 mm[Hg] MEDGEN ([facility]) Body weight 142 lb 142 lb MEDGEN ([facility]) Body height 66 in 66 in MEDGEN ([facility]) Heart rate 87 /min 87 /min MEDGEN ([facility]) Respiratory rate 16 /min 16 /min MEDGEN ( [facility]) Body temperature 97.6 F 97.6 F MEDGEN ( [facility]) Inhaled oxygen 100 % 100 % MEDGEN ([facility], ) Body mass index 22.9 kg/m2 22.9 kg/m2 MEDGEN (S t (BMI) [Ratio] [facility], ) Diastolic blood 87 mm[Hg] 87 mm[Hg] MEDGEN (S t pressure [facility]) Systolic blood 126 mm[Hg] 126 mm[Hg] MEDGEN ([facility]) Body weight 142 lb 142 lb MEDGEN ([facility]) Body height 66 in 66 in MEDGEN ([facility]) Diastolic blood 87 mm[Hg] 87 mm[Hg] MEDGEN (S t pressure [facility]) Systolic blood 126 mm[Hg] 126 mm[Hg] MEDGEN ([facility] , ) Body weight 142 lb 142 lb MEDGEN ([facility]) Body height 66 in 66 in MEDGEN ([facility]) Heart rate 87 /min 87 /min MEDGEN ([facility]) Respiratory rate 16 /min 16 /min MEDGEN ( [facility]) Body temperature 97.6 F 97.6 F MEDGEN ( [facility]) Inhaled oxygen 100 % 100 % MEDGEN ([facility], ) Body mass index 22.9 kg/m2 22.9 kg/m2 MEDGEN (S t (BMI) [Ratio] [facility], ) Diastolic blood 87 mm[Hg] 87 mm[Hg] MEDGEN (S t pressure [facility]) Systolic blood 126 mm[Hg] 126 mm[Hg] MEDGEN ([facility]) Heart rate 87 /min 87 /min MEDGEN ([facility]) Respiratory rate 16 /min 16 /min MEDGEN ( [facility]) Body temperature 97.6 F 97.6 F MEDGEN ( [facility]) Inhaled oxygen 100 % 100 % MEDGEN ([facility], ) Body mass index 22.9 kg/m2 22.9 kg/m2 MEDGEN (S t (BMI) [Ratio] [facility], ) Body weight 142 lb 142 lb MEDGEN ([facility]) Body height 66 in 66 in MEDGEN ([facility]) Heart rate 87 /min 87 /min MEDGEN ([facility]) Respiratory rate 16 /min 16 /min MEDGEN ( [facility]) Body temperature 97.6 F 97.6 F MEDGEN ( [facility]) Inhaled oxygen 100 % 100 % MEDGEN ([facility]) Body mass index 22.9 kg/m2 22.9 kg/m2 MEDGEN (S t (BMI) [Ratio] [facility], ) Diastolic blood 87 mm[Hg] 87 mm[Hg] MEDGEN (S t pressure [facility]) Systolic blood 126 mm[Hg] 126 mm[Hg] MEDGEN ([facility]) Body weight 142 lb 142 lb MEDGEN ([facility]) Body height 66 in 66 in MEDGEN ([facility]) Heart rate 87 /min 87 /min MEDGEN ([facility]) Respiratory rate 16 /min 16 /min MEDGEN ( [facility]) Body temperature 97.6 F 97.6 F MEDGEN ( [facility]) Inhaled oxygen 100 % 100 % MEDGEN ([facility], ) Body mass index 22.9 kg/m2 22.9 kg/m2 MEDGEN (S t (BMI) [Ratio] [facility], ) Diastolic blood 87 mm[Hg] 87 mm[Hg] MEDGEN (S t pressure [facility]) Systolic blood 126 mm[Hg] 126 mm[Hg] MEDGEN ([facility]) Body weight 142 lb 142 lb MEDGEN ([facility]) Body height 66 in 66 in MEDGEN ([facility]) Systolic blood 126 mm[Hg] 126 mm[Hg] MEDGEN ([facility]) Body weight 142 lb 142 lb MEDGEN ([facility]) Body height 66 in 66 in MEDGEN ([facility]) Heart rate 87 /min 87 /min MEDGEN ([facility]) Respiratory rate 16 /min 16 /min MEDGEN ( [facility]) Body temperature 97.6 F 97.6 F MEDGEN ( [facility]) Inhaled oxygen 100 % 100 % MEDGEN ([facility], ) Body mass index 22.9 kg/m2 22.9 kg/m2 MEDGEN (S t (BMI) [Ratio] [facility], ) Diastolic blood 87 mm[Hg] 87 mm[Hg] MEDGEN (S t [facility]) Heart rate 72 /min 72 /min MEDGEN ([facility]) Respiratory rate 16 /min 16 /min MEDGEN ( [facility]) Body temperature 97.4 F 97.4 F MEDGEN ( [facility]) Inhaled oxygen 100 % 100 % MEDGEN ([facility], ) Body mass index 22.3 kg/m2 22.3 kg/m2 MEDGEN (S t (BMI) [Ratio] [facility], ) Diastolic blood 94 mm[Hg] 94 mm[Hg] MEDGEN (S t pressure [facility]) Systolic blood 139 mm[Hg] 139 mm[Hg] MEDGEN ([facility]) Body weight 138 lb 138 lb MEDGEN ([facility]) Body height 66 in 66 in MEDGEN ([facility]) Heart rate 72 /min 72 /min MEDGEN ([facility]) Respiratory rate 16 /min 16 /min MEDGEN ( [facility]) Body temperature 97.4 F 97.4 F MEDGEN ( [facility]) Inhaled oxygen 100 % 100 % MEDGEN ([facility]) Body mass index 22.3 kg/m2 22.3 kg/m2 MEDGEN (S t (BMI) [Ratio] [facility], ) Diastolic blood 94 mm[Hg] 94 mm[Hg] MEDGEN (S t pressure [facility]) Systolic blood 139 mm[Hg] 139 mm[Hg] MEDGEN ([facility]) Body weight 138 lb 138 lb MEDGEN ([facility]) Body height 66 in 66 in MEDGEN ([facility]) Body mass index 22.3 kg/m2 22.3 kg/m2 MEDGEN (S t (BMI) [Ratio] [facility], ) Diastolic blood 94 mm[Hg] 94 mm[Hg] MEDGEN (S t pressure [facility]) Systolic blood 139 mm[Hg] 139 mm[Hg] MEDGEN ([facility]) Body weight 138 lb 138 lb MEDGEN ([facility]) Body height 66 in 66 in MEDGEN ([facility]) Heart rate 72 /min 72 /min MEDGEN ([facility]) Respiratory rate 16 /min 16 /min MEDGEN ( [facility]) Body temperature 97.4 F 97.4 F MEDGEN ( [facility]) Inhaled oxygen 100 % 100 % MEDGEN ([facility], ) Body mass index 22.3 kg/m2 22.3 kg/m2 MEDGEN (S t (BMI) [Ratio] [facility], ) Diastolic blood 94 mm[Hg] 94 mm[Hg] MEDGEN (S t pressure [facility]) Systolic blood 139 mm[Hg] 139 mm[Hg] MEDGEN ([facility]) Body weight 138 lb 138 lb MEDGEN ([facility]) Body height 66 in 66 in MEDGEN ([facility]) Heart rate 72 /min 72 /min MEDGEN ([facility]) Respiratory rate 16 /min 16 /min MEDGEN ( [facility]) Body temperature 97.4 F 97.4 F MEDGEN ( [facility]) Inhaled oxygen 100 % 100 % MEDGEN ([facility], ) Heart rate 72 /min 72 /min MEDGEN ([facility]) Respiratory rate 16 /min 16 /min MEDGEN ( [facility]) Body temperature 97.4 F 97.4 F MEDGEN ( [facility]) Inhaled oxygen 100 % 100 % MEDGEN ([facility], ) Body mass index 22.3 kg/m2 22.3 kg/m2 MEDGEN (S t (BMI) [Ratio] [facility], ) Diastolic blood 94 mm[Hg] 94 mm[Hg] MEDGEN (S t pressure [facility] , ) Systolic blood 139 mm[Hg] 139 mm[Hg] MEDGEN ([facility] , ) Body weight 138 lb 138 lb MEDGEN ([facility]) Body height 66 in 66 in MEDGEN ([facility]) Heart rate 72 /min 72 /min MEDGEN ([facility]) Respiratory rate 16 /min 16 /min MEDGEN ( [facility]) Body temperature 97.4 F 97.4 F MEDGEN ( [facility]) Inhaled oxygen 100 % 100 % MEDGEN ([facility], ) Body mass index 22.3 kg/m2 22.3 kg/m2 MEDGEN (S t (BMI) [Ratio] [facility], ) Diastolic blood 94 mm[Hg] 94 mm[Hg] MEDGEN (S t pressure [facility]) Systolic blood 139 mm[Hg] 139 mm[Hg] MEDGEN ([facility]) Body weight 138 lb 138 lb MEDGEN ([facility]) Body height 66 in 66 in MEDGEN ([facility]) Heart rate 72 /min 72 /min MEDGEN ([facility]) Respiratory rate 16 /min 16 /min MEDGEN ( [facility]) Body temperature 97.4 F 97.4 F MEDGEN ( [facility]) Inhaled oxygen 100 % 100 % MEDGEN ([facility], ) Body mass index 22.3 kg/m2 22.3 kg/m2 MEDGEN (S t (BMI) [Ratio] [facility], ) Diastolic blood 94 mm[Hg] 94 mm[Hg] MEDGEN (S t pressure [facility]) Systolic blood 139 mm[Hg] 139 mm[Hg] MEDGEN ([facility]) Body weight 138 lb 138 lb MEDGEN ([facility]) Body height 66 in 66 in MEDGEN ([facility]) Heart rate 72 /min 72 /min MEDGEN ([facility]) Respiratory rate 16 /min 16 /min MEDGEN ( [facility]) Body temperature 97.4 F 97.4 F MEDGEN ( [facility]) Inhaled oxygen 100 % 100 % MEDGEN ([facility], ) Body mass index 22.3 kg/m2 22.3 kg/m2 MEDGEN (S t (BMI) [Ratio] [facility], ) Diastolic blood 94 mm[Hg] 94 mm[Hg] MEDGEN (S t pressure [facility]) Systolic blood 139 mm[Hg] 139 mm[Hg] MEDGEN ([facility] , ) Body weight 138 lb 138 lb MEDGEN ([facility]) Body height 66 in 66 in MEDGEN ([facility]) Heart rate 72 /min 72 /min MEDGEN ([facility]) Respiratory rate 16 /min 16 /min MEDGEN ( [facility]) Body temperature 97.4 F 97.4 F MEDGEN ( [facility]) Inhaled oxygen 100 % 100 % MEDGEN ([facility], ) Body mass index 22.3 kg/m2 22.3 kg/m2 MEDGEN (S t (BMI) [Ratio] [facility], ) Diastolic blood 94 mm[Hg] 94 mm[Hg] MEDGEN (S t [facility]) Systolic blood 139 mm[Hg] 139 mm[Hg] MEDGEN ([facility]) Body weight 138 lb 138 lb MEDGEN ([facility]) Body height 66 in 66 in MEDGEN ([facility]) Heart rate 72 /min 72 /min MEDGEN ([facility]) Respiratory rate 16 /min 16 /min MEDGEN ( [facility]) Body temperature 97.4 F 97.4 F MEDGEN ( [facility]) Inhaled oxygen 100 % 100 % MEDGEN ([facility]) Body mass index 22.3 kg/m2 22.3 kg/m2 MEDGEN (S t (BMI) [Ratio] [facility]) Diastolic blood 94 mm[Hg] 94 mm[Hg] MEDGEN (S t [facility]) Systolic blood 139 mm[Hg] 139 mm[Hg] MEDGEN ([facility]) Body weight 138 lb 138 lb MEDGEN ([facility]) Body height 66 in 66 in MEDGEN ([facility]) Heart rate 72 /min 72 /min MEDGEN ([facility]) Respiratory rate 16 /min 16 /min MEDGEN ( [facility]) Body temperature 97.4 F 97.4 F MEDGEN ( [facility]) Inhaled oxygen 100 % 100 % MEDGEN ([facility], ) Body mass index 22.3 kg/m2 22.3 kg/m2 MEDGEN (S t (BMI) [Ratio] [facility]) Diastolic blood 94 mm[Hg] 94 mm[Hg] MEDGEN (S t [facility]) Systolic blood 139 mm[Hg] 139 mm[Hg] MEDGEN ([facility]) Body weight 138 lb 138 lb MEDGEN ([facility]) Body height 66 in 66 in MEDGEN ([facility]) Heart rate 72 /min 72 /min MEDGEN ([facility]) Respiratory rate 16 /min 16 /min MEDGEN ( [facility]) Body temperature 97.4 F 97.4 F MEDGEN ( [facility]) Inhaled oxygen 100 % 100 % MEDGEN ([facility], ) Body mass index 22.3 kg/m2 22.3 kg/m2 MEDGEN (S t (BMI) [Ratio] [facility], ) Diastolic blood 94 mm[Hg] 94 mm[Hg] MEDGEN (S t [facility]) Systolic blood 139 mm[Hg] 139 mm[Hg] MEDGEN ([facility]) Body weight 138 lb 138 lb MEDGEN ([facility]) Body height 66 in 66 in MEDGEN ([facility]) Heart rate 72 /min 72 /min MEDGEN ([facility]) Respiratory rate 16 /min 16 /min MEDGEN ( [facility]) Body temperature 97.4 F 97.4 F MEDGEN ( [facility]) Inhaled oxygen 100 % 100 % MEDGEN ([facility], ) Body mass index 22.3 kg/m2 22.3 kg/m2 MEDGEN (S t (BMI) [Ratio] [facility], ) Diastolic blood 94 mm[Hg] 94 mm[Hg] MEDGEN (S t pressure [facility]) Systolic blood 139 mm[Hg] 139 mm[Hg] MEDGEN ([facility]) Body weight 138 lb 138 lb MEDGEN ([facility]) Body height 66 in 66 in MEDGEN ([facility]) Heart rate 72 /min 72 /min MEDGEN ([facility]) Respiratory rate 16 /min 16 /min MEDGEN ( [facility]) Body temperature 97.4 F 97.4 F MEDGEN ( [facility]) Inhaled oxygen 100 % 100 % MEDGEN ([facility], ) Body mass index 22.3 kg/m2 22.3 kg/m2 MEDGEN (S t (BMI) [Ratio] [facility], ) Diastolic blood 94 mm[Hg] 94 mm[Hg] MEDGEN (S t pressure [facility]) Systolic blood 139 mm[Hg] 139 mm[Hg] MEDGEN ([facility]) Body weight 138 lb 138 lb MEDGEN ([facility]) Body height 66 in 66 in MEDGEN ([facility]) Heart rate 72 /min 72 /min MEDGEN ([facility]) Respiratory rate 16 /min 16 /min MEDGEN ( [facility]) Body temperature 97.4 F 97.4 F MEDGEN ( [facility]) Inhaled oxygen 100 % 100 % MEDGEN ([facility], ) Body mass index 22.3 kg/m2 22.3 kg/m2 MEDGEN (S t (BMI) [Ratio] [facility], ) Diastolic blood 94 mm[Hg] 94 mm[Hg] MEDGEN (S t pressure [facility]) Systolic blood 139 mm[Hg] 139 mm[Hg] MEDGEN ([facility]) Body weight 138 lb 138 lb MEDGEN ([facility]) Body height 66 in 66 in MEDGEN ([facility]) Heart rate 72 /min 72 /min MEDGEN ([facility]) Respiratory rate 14 /min 14 /min MEDGEN ( [facility]) Inhaled oxygen 98 % 98 % MEDGEN ([facility], ) Body mass index 22.3 kg/m2 22.3 kg/m2 MEDGEN (S t (BMI) [Ratio] [facility], ) Diastolic blood 94 mm[Hg] 94 mm[Hg] MEDGEN (S t pressure [facility]) Systolic blood 139 mm[Hg] 139 mm[Hg] MEDGEN ([facility]) Body weight 138 lb 138 lb MEDGEN ([facility]) Body height 66 in 66 in MEDGEN ([facility]) Heart rate 72 /min 72 /min MEDGEN ([facility]) Respiratory rate 14 /min 14 /min MEDGEN ( [facility]) Inhaled oxygen 98 % 98 % MEDGEN ([facility], ) Body mass index 22.3 kg/m2 22.3 kg/m2 MEDGEN (S t (BMI) [Ratio] [facility], ) Diastolic blood 94 mm[Hg] 94 mm[Hg] MEDGEN (S t pressure [facility] , ) Systolic blood 139 mm[Hg] 139 mm[Hg] MEDGEN ([facility] , ) Body weight 138 lb 138 lb MEDGEN ([facility]) Body height 66 in 66 in MEDGEN ([facility]) Heart rate 72 /min 72 /min MEDGEN ([facility]) Respiratory rate 14 /min 14 /min MEDGEN ( [facility]) Inhaled oxygen 98 % 98 % MEDGEN ([facility], ) Body mass index 22.3 kg/m2 22.3 kg/m2 MEDGEN (S t (BMI) [Ratio] [facility], ) Diastolic blood 94 mm[Hg] 94 mm[Hg] MEDGEN (S t pressure [facility]) Systolic blood 139 mm[Hg] 139 mm[Hg] MEDGEN ([facility] , ) Body weight 138 lb 138 lb MEDGEN ([facility]) Body height 66 in 66 in MEDGEN ([facility]) Heart rate 72 /min 72 /min MEDGEN ([facility]) Respiratory rate 14 /min 14 /min MEDGEN ( [facility]) Inhaled oxygen 98 % 98 % MEDGEN ([facility], ) Body mass index 22.3 kg/m2 22.3 kg/m2 MEDGEN (S t (BMI) [Ratio] [facility], ) Diastolic blood 94 mm[Hg] 94 mm[Hg] MEDGEN (S t pressure [facility] , ) Systolic blood 139 mm[Hg] 139 mm[Hg] MEDGEN ([facility] , ) Body weight 138 lb 138 lb MEDGEN ([facility]) Body height 66 in 66 in MEDGEN ([facility]) Heart rate 72 /min 72 /min MEDGEN ([facility]) Respiratory rate 14 /min 14 /min MEDGEN ( [facility]) Inhaled oxygen 98 % 98 % MEDGEN ([facility]) Body mass index 22.3 kg/m2 22.3 kg/m2 MEDGEN (S t (BMI) [Ratio] [facility], ) Diastolic blood 94 mm[Hg] 94 mm[Hg] MEDGEN (S t pressure [facility]) Systolic blood 139 mm[Hg] 139 mm[Hg] MEDGEN ([facility]) Body weight 138 lb 138 lb MEDGEN ([facility]) Body height 66 in 66 in MEDGEN ([facility]) Heart rate 72 /min 72 /min MEDGEN ([facility]) Respiratory rate 14 /min 14 /min MEDGEN ( [facility]) Inhaled oxygen 98 % 98 % MEDGEN ([facility], ) Body mass index 22.3 kg/m2 22.3 kg/m2 MEDGEN (S t (BMI) [Ratio] [facility], ) Diastolic blood 94 mm[Hg] 94 mm[Hg] MEDGEN (S t pressure [facility]) Systolic blood 139 mm[Hg] 139 mm[Hg] MEDGEN ([facility]) Body weight 138 lb 138 lb MEDGEN ([facility]) Body height 66 in 66 in MEDGEN ([facility]) Heart rate 72 /min 72 /min MEDGEN ([facility]) Respiratory rate 14 /min 14 /min MEDGEN ( [facility]) Inhaled oxygen 98 % 98 % MEDGEN ([facility], ) Body mass index 22.3 kg/m2 22.3 kg/m2 MEDGEN (S t (BMI) [Ratio] [facility], ) Diastolic blood 94 mm[Hg] 94 mm[Hg] MEDGEN (S t pressure [facility]) Systolic blood 139 mm[Hg] 139 mm[Hg] MEDGEN ([facility]) Body weight 138 lb 138 lb MEDGEN ([facility]) Body height 66 in 66 in MEDGEN ([facility]) Heart rate 72 /min 72 /min MEDGEN ([facility]) Respiratory rate 14 /min 14 /min MEDGEN ( [facility]) Inhaled oxygen 98 % 98 % MEDGEN ([facility], ) Body mass index 22.3 kg/m2 22.3 kg/m2 MEDGEN (S t (BMI) [Ratio] [facility], ) Diastolic blood 94 mm[Hg] 94 mm[Hg] MEDGEN (S t pressure [facility]) Systolic blood 139 mm[Hg] 139 mm[Hg] MEDGEN ([facility]) Body weight 138 lb 138 lb MEDGEN ([facility]) Body height 66 in 66 in MEDGEN ([facility]) Heart rate 72 /min 72 /min MEDGEN ([facility]) Respiratory rate 14 /min 14 /min MEDGEN ( [facility]) Inhaled oxygen 98 % 98 % MEDGEN ([facility], ) Body mass index 22.3 kg/m2 22.3 kg/m2 MEDGEN (S t (BMI) [Ratio] [facility], ) Diastolic blood 94 mm[Hg] 94 mm[Hg] MEDGEN (S t pressure [facility]) Systolic blood 139 mm[Hg] 139 mm[Hg] MEDGEN ([facility]) Body weight 138 lb 138 lb MEDGEN ([facility]) Body height 66 in 66 in MEDGEN ([facility]) Heart rate 72 /min 72 /min MEDGEN ([facility]) Respiratory rate 14 /min 14 /min MEDGEN ( [facility]) Inhaled oxygen 98 % 98 % MEDGEN ([facility], ) Body mass index 22.3 kg/m2 22.3 kg/m2 MEDGEN (S t (BMI) [Ratio] [facility], ) Diastolic blood 94 mm[Hg] 94 mm[Hg] MEDGEN (S t pressure [facility]) Systolic blood 139 mm[Hg] 139 mm[Hg] MEDGEN ([facility] , ) Body weight 138 lb 138 lb MEDGEN ([facility]) Body height 66 in 66 in MEDGEN ([facility]) Heart rate 72 /min 72 /min MEDGEN ([facility]) Respiratory rate 14 /min 14 /min MEDGEN ( [facility]) Inhaled oxygen 98 % 98 % MEDGEN ([facility], ) Body mass index 22.3 kg/m2 22.3 kg/m2 MEDGEN (S t (BMI) [Ratio] [facility], ) Diastolic blood 94 mm[Hg] 94 mm[Hg] MEDGEN (S t pressure [facility] , ) Systolic blood 139 mm[Hg] 139 mm[Hg] MEDGEN ([facility] , ) Body weight 138 lb 138 lb MEDGEN ([facility]) Body height 66 in 66 in MEDGEN ([facility]) Heart rate 72 /min 72 /min MEDGEN ([facility] , ) Respiratory rate 14 /min 14 /min MEDGEN ( [facility]) Inhaled oxygen 98 % 98 % MEDGEN ([facility], ) Body mass index 22.3 kg/m2 22.3 kg/m2 MEDGEN (S t (BMI) [Ratio] [facility], ) Diastolic blood 94 mm[Hg] 94 mm[Hg] MEDGEN (S t pressure [facility]) Systolic blood 139 mm[Hg] 139 mm[Hg] MEDGEN ([facility] , ) Body weight 138 lb 138 lb MEDGEN ([facility]) Body height 66 in 66 in MEDGEN ([facility]) Heart rate 72 /min 72 /min MEDGEN ([facility] , ) Respiratory rate 14 /min 14 /min MEDGEN ( [facility]) Inhaled oxygen 98 % 98 % MEDGEN ([facility], ) Body mass index 22.3 kg/m2 22.3 kg/m2 MEDGEN (S t (BMI) [Ratio] [facility], ) Diastolic blood 94 mm[Hg] 94 mm[Hg] MEDGEN (S t pressure [facility] , ) Systolic blood 139 mm[Hg] 139 mm[Hg] MEDGEN ([facility]) Body weight 138 lb 138 lb MEDGEN ([facility]) Body height 66 in 66 in MEDGEN ([facility]) Heart rate 72 /min 72 /min MEDGEN ([facility]) Respiratory rate 14 /min 14 /min MEDGEN ( [facility]) Inhaled oxygen 98 % 98 % MEDGEN ([facility], ) Body mass index 22.3 kg/m2 22.3 kg/m2 MEDGEN (S t (BMI) [Ratio] [facility], ) Diastolic blood 94 mm[Hg] 94 mm[Hg] MEDGEN (S t pressure [facility] , ) Systolic blood 139 mm[Hg] 139 mm[Hg] MEDGEN ([facility] , ) Body weight 138 lb 138 lb MEDGEN ([facility]) Body height 66 in 66 in MEDGEN ([facility]) Heart rate 72 /min 72 /min MEDGEN ([facility]) Respiratory rate 14 /min 14 /min MEDGEN ( [facility]) Inhaled oxygen 98 % 98 % MEDGEN ([facility], ) Body mass index 22.3 kg/m2 22.3 kg/m2 MEDGEN (S t (BMI) [Ratio] [facility], ) Diastolic blood 94 mm[Hg] 94 mm[Hg] MEDGEN (S t pressure [facility] , ) Systolic blood 139 mm[Hg] 139 mm[Hg] MEDGEN ([facility] , ) Body weight 138 lb 138 lb MEDGEN ([facility]) Body height 66 in 66 in MEDGEN ([facility]) Heart rate 78 /min 78 /min MEDGEN ([facility]) Respiratory rate 16 /min 16 /min MEDGEN ( [facility]) Body temperature 97.8 F 97.8 F MEDGEN ( [facility]) Inhaled oxygen 100 % 100 % MEDGEN ([facility], ) Body mass index 22.4 kg/m2 22.4 kg/m2 MEDGEN (S t (BMI) [Ratio] [facility], ) Diastolic blood 101 mm[Hg] 101 mm[Hg] MEDGEN (S t pressure [facility]) Systolic blood 151 mm[Hg] 151 mm[Hg] MEDGEN ([facility]) Body weight 139 lb 139 lb MEDGEN ([facility]) Body height 66 in 66 in MEDGEN ([facility]) Heart rate 78 /min 78 /min MEDGEN ([facility]) Respiratory rate 16 /min 16 /min MEDGEN ( [facility]) Body temperature 97.8 F 97.8 F MEDGEN ( [facility]) Inhaled oxygen 100 % 100 % MEDGEN ([facility]) Body mass index 22.4 kg/m2 22.4 kg/m2 MEDGEN (S t (BMI) [Ratio] [facility], ) Diastolic blood 101 mm[Hg] 101 mm[Hg] MEDGEN (S t [facility]) Systolic blood 151 mm[Hg] 151 mm[Hg] MEDGEN ([facility]) Body weight 139 lb 139 lb MEDGEN ([facility]) Body height 66 in 66 in MEDGEN ([facility]) Heart rate 78 /min 78 /min MEDGEN ([facility]) Respiratory rate 16 /min 16 /min MEDGEN ( [facility]) Body temperature 97.8 F 97.8 F MEDGEN ( [facility]) Inhaled oxygen 100 % 100 % MEDGEN ([facility]) Body mass index 22.4 kg/m2 22.4 kg/m2 MEDGEN (S t (BMI) [Ratio] [facility], ) Diastolic blood 101 mm[Hg] 101 mm[Hg] MEDGEN (S t pressure [facility]) Systolic blood 151 mm[Hg] 151 mm[Hg] MEDGEN ([facility]) Body weight 139 lb 139 lb MEDGEN ([facility]) Body height 66 in 66 in MEDGEN ([facility]) Heart rate 78 /min 78 /min MEDGEN ([facility]) Respiratory rate 16 /min 16 /min MEDGEN ( [facility]) Body temperature 97.8 F 97.8 F MEDGEN ( [facility]) Inhaled oxygen 100 % 100 % MEDGEN ([facility], ) Body mass index 22.4 kg/m2 22.4 kg/m2 MEDGEN (S t (BMI) [Ratio] [facility], ) Diastolic blood 101 mm[Hg] 101 mm[Hg] MEDGEN (S t [facility]) Systolic blood 151 mm[Hg] 151 mm[Hg] MEDGEN ([facility]) Body weight 139 lb 139 lb MEDGEN ([facility]) Body height 66 in 66 in MEDGEN ([facility]) Heart rate 78 /min 78 /min MEDGEN ([facility]) Respiratory rate 16 /min 16 /min MEDGEN ( [facility]) Body temperature 97.8 F 97.8 F MEDGEN ( [facility]) Inhaled oxygen 100 % 100 % MEDGEN ([facility], ) Body mass index 22.4 kg/m2 22.4 kg/m2 MEDGEN (S t (BMI) [Ratio] [facility], ) Diastolic blood 101 mm[Hg] 101 mm[Hg] MEDGEN (S t pressure [facility]) Systolic blood 151 mm[Hg] 151 mm[Hg] MEDGEN ([facility]) Body weight 139 lb 139 lb MEDGEN ([facility]) Body height 66 in 66 in MEDGEN ([facility]) Heart rate 78 /min 78 /min MEDGEN ([facility]) Respiratory rate 16 /min 16 /min MEDGEN ( [facility]) Body temperature 97.8 F 97.8 F MEDGEN ( [facility]) Inhaled oxygen 100 % 100 % MEDGEN ([facility], ) Body mass index 22.4 kg/m2 22.4 kg/m2 MEDGEN (S t (BMI) [Ratio] [facility], ) Diastolic blood 101 mm[Hg] 101 mm[Hg] MEDGEN (S t pressure [facility]) Systolic blood 151 mm[Hg] 151 mm[Hg] MEDGEN ([facility]) Body weight 139 lb 139 lb MEDGEN ([facility]) Body height 66 in 66 in MEDGEN ([facility]) Heart rate 78 /min 78 /min MEDGEN ([facility]) Respiratory rate 16 /min 16 /min MEDGEN ( [facility]) Body temperature 97.8 F 97.8 F MEDGEN ( [facility]) Inhaled oxygen 100 % 100 % MEDGEN ([facility]) Body mass index 22.4 kg/m2 22.4 kg/m2 MEDGEN (S t (BMI) [Ratio] [facility], ) Diastolic blood 101 mm[Hg] 101 mm[Hg] MEDGEN (S t [facility]) Systolic blood 151 mm[Hg] 151 mm[Hg] MEDGEN ([facility]) Body weight 139 lb 139 lb MEDGEN ([facility]) Body height 66 in 66 in MEDGEN ([facility]) Heart rate 78 /min 78 /min MEDGEN ([facility]) Respiratory rate 16 /min 16 /min MEDGEN ( [facility]) Body temperature 97.8 F 97.8 F MEDGEN ( [facility]) Inhaled oxygen 100 % 100 % MEDGEN ([facility], ) Body mass index 22.4 kg/m2 22.4 kg/m2 MEDGEN (S t (BMI) [Ratio] [facility], ) Diastolic blood 101 mm[Hg] 101 mm[Hg] MEDGEN (S t pressure [facility]) Systolic blood 151 mm[Hg] 151 mm[Hg] MEDGEN ([facility]) Body weight 139 lb 139 lb MEDGEN ([facility]) Body height 66 in 66 in MEDGEN ([facility]) Heart rate 78 /min 78 /min MEDGEN ([facility]) Respiratory rate 16 /min 16 /min MEDGEN ( [facility]) Body temperature 97.8 F 97.8 F MEDGEN ( [facility]) Inhaled oxygen 100 % 100 % MEDGEN ([facility]) Body mass index 22.4 kg/m2 22.4 kg/m2 MEDGEN (S t (BMI) [Ratio] [facility]) Diastolic blood 101 mm[Hg] 101 mm[Hg] MEDGEN (S t pressure [facility]) Systolic blood 151 mm[Hg] 151 mm[Hg] MEDGEN ([facility]) Body weight 139 lb 139 lb MEDGEN ([facility]) Body height 66 in 66 in MEDGEN ([facility]) Heart rate 78 /min 78 /min MEDGEN ([facility]) Respiratory rate 16 /min 16 /min MEDGEN ( [facility]) Body temperature 97.8 F 97.8 F MEDGEN ( [facility]) Inhaled oxygen 100 % 100 % MEDGEN ([facility]) Body mass index 22.4 kg/m2 22.4 kg/m2 MEDGEN (S t (BMI) [Ratio] [facility]) Diastolic blood 101 mm[Hg] 101 mm[Hg] MEDGEN (S t pressure [facility]) Systolic blood 151 mm[Hg] 151 mm[Hg] MEDGEN ([facility]) Body weight 139 lb 139 lb MEDGEN ([facility]) Body height 66 in 66 in MEDGEN ([facility]) Heart rate 78 /min 78 /min MEDGEN ([facility]) Respiratory rate 16 /min 16 /min MEDGEN ( [facility]) Body temperature 97.8 F 97.8 F MEDGEN ( [facility]) Inhaled oxygen 100 % 100 % MEDGEN ([facility]) Body mass index 22.4 kg/m2 22.4 kg/m2 MEDGEN (S t (BMI) [Ratio] [facility], ) Diastolic blood 101 mm[Hg] 101 mm[Hg] MEDGEN (S t pressure [facility]) Systolic blood 151 mm[Hg] 151 mm[Hg] MEDGEN ([facility]) Body weight 139 lb 139 lb MEDGEN ([facility]) Body height 66 in 66 in MEDGEN ([facility]) Heart rate 78 /min 78 /min MEDGEN ([facility]) Respiratory rate 16 /min 16 /min MEDGEN ( [facility]) Body temperature 97.8 F 97.8 F MEDGEN ( [facility]) Inhaled oxygen 100 % 100 % MEDGEN ([facility], ) Body mass index 22.4 kg/m2 22.4 kg/m2 MEDGEN (S t (BMI) [Ratio] [facility], ) Diastolic blood 101 mm[Hg] 101 mm[Hg] MEDGEN (S t pressure [facility]) Systolic blood 151 mm[Hg] 151 mm[Hg] MEDGEN ([facility]) Body weight 139 lb 139 lb MEDGEN ([facility]) Body height 66 in 66 in MEDGEN ([facility]) Heart rate 78 /min 78 /min MEDGEN ([facility]) Respiratory rate 16 /min 16 /min MEDGEN ( [facility]) Body temperature 97.8 F 97.8 F MEDGEN ( [facility]) Inhaled oxygen 100 % 100 % MEDGEN ([facility], ) Body mass index 22.4 kg/m2 22.4 kg/m2 MEDGEN (S t (BMI) [Ratio] [facility], ) Diastolic blood 101 mm[Hg] 101 mm[Hg] MEDGEN (S t pressure [facility]) Systolic blood 151 mm[Hg] 151 mm[Hg] MEDGEN ([facility]) Body weight 139 lb 139 lb MEDGEN ([facility]) Body height 66 in 66 in MEDGEN ([facility]) Heart rate 78 /min 78 /min MEDGEN ([facility]) Respiratory rate 16 /min 16 /min MEDGEN ( [facility]) Body temperature 97.8 F 97.8 F MEDGEN ( [facility]) Inhaled oxygen 100 % 100 % MEDGEN ([facility]) Body mass index 22.4 kg/m2 22.4 kg/m2 MEDGEN (S t (BMI) [Ratio] [facility]) Diastolic blood 101 mm[Hg] 101 mm[Hg] MEDGEN (S t [facility]) Systolic blood 151 mm[Hg] 151 mm[Hg] MEDGEN ([facility]) Body weight 139 lb 139 lb MEDGEN ([facility]) Body height 66 in 66 in MEDGEN ([facility]) Heart rate 78 /min 78 /min MEDGEN ([facility]) Respiratory rate 16 /min 16 /min MEDGEN ( [facility]) Body temperature 97.8 F 97.8 F MEDGEN ( [facility]) Inhaled oxygen 100 % 100 % MEDGEN ([facility]) Body mass index 22.4 kg/m2 22.4 kg/m2 MEDGEN (S t (BMI) [Ratio] [facility]) Diastolic blood 101 mm[Hg] 101 mm[Hg] MEDGEN (S t [facility]) Systolic blood 151 mm[Hg] 151 mm[Hg] MEDGEN ([facility]) Body weight 139 lb 139 lb MEDGEN ([facility]) Body height 66 in 66 in MEDGEN ([facility]) Heart rate 82 /min 82 /min MEDGEN ([facility]) Respiratory rate 16 /min 16 /min MEDGEN ( [facility]) Body temperature 98.7 F 98.7 F MEDGEN ( [facility]) Inhaled oxygen 98 % 98 % MEDGEN ([facility]) Body mass index 22.4 kg/m2 22.4 kg/m2 MEDGEN (S t (BMI) [Ratio] [facility]) Diastolic blood 97 mm[Hg] 97 mm[Hg] MEDGEN (S t pressure [facility]) Systolic blood 171 mm[Hg] 171 mm[Hg] MEDGEN ([facility]) Body weight 139 lb 139 lb MEDGEN ([facility]) Body height 66 in 66 in MEDGEN ([facility]) Heart rate 82 /min 82 /min MEDGEN ([facility]) Respiratory rate 16 /min 16 /min MEDGEN ( [facility]) Body temperature 98.7 F 98.7 F MEDGEN ( [facility]) Inhaled oxygen 98 % 98 % MEDGEN ([facility]) Body mass index 22.4 kg/m2 22.4 kg/m2 MEDGEN (S t (BMI) [Ratio] [facility], ) Diastolic blood 97 mm[Hg] 97 mm[Hg] MEDGEN (S [facility]) Systolic blood 171 mm[Hg] 171 mm[Hg] MEDGEN ([facility]) Body weight 139 lb 139 lb MEDGEN ([facility]) Body height 66 in 66 in MEDGEN ([facility]) Heart rate 82 /min 82 /min MEDGEN ([facility]) Respiratory rate 16 /min 16 /min MEDGEN ( [facility]) Body temperature 98.7 F 98.7 F MEDGEN ( [facility]) Inhaled oxygen 98 % 98 % MEDGEN ([facility]) Body mass index 22.4 kg/m2 22.4 kg/m2 MEDGEN (S t (BMI) [Ratio] [facility], ) Diastolic blood 97 mm[Hg] 97 mm[Hg] MEDGEN (S t [facility]) Systolic blood 171 mm[Hg] 171 mm[Hg] MEDGEN ([facility]) Body weight 139 lb 139 lb MEDGEN ([facility]) Body height 66 in 66 in MEDGEN ([facility]) Heart rate 82 /min 82 /min MEDGEN ([facility]) Respiratory rate 16 /min 16 /min MEDGEN ( [facility]) Body temperature 98.7 F 98.7 F MEDGEN ( [facility]) Inhaled oxygen 98 % 98 % MEDGEN ([facility]) Body mass index 22.4 kg/m2 22.4 kg/m2 MEDGEN (S t (BMI) [Ratio] [facility]) Diastolic blood 97 mm[Hg] 97 mm[Hg] MEDGEN (S t pressure [facility]) Systolic blood 171 mm[Hg] 171 mm[Hg] MEDGEN ([facility]) Body weight 139 lb 139 lb MEDGEN ([facility]) Body height 66 in 66 in MEDGEN ([facility]) Heart rate 82 /min 82 /min MEDGEN ([facility]) Respiratory rate 16 /min 16 /min MEDGEN ( [facility]) Body temperature 98.7 F 98.7 F MEDGEN ( [facility]) Inhaled oxygen 98 % 98 % MEDGEN ([facility]) Body mass index 22.4 kg/m2 22.4 kg/m2 MEDGEN (S t (BMI) [Ratio] [facility]) Diastolic blood 97 mm[Hg] 97 mm[Hg] MEDGEN (S [facility]) Systolic blood 171 mm[Hg] 171 mm[Hg] MEDGEN ([facility]) Body weight 139 lb 139 lb MEDGEN ([facility]) Body height 66 in 66 in MEDGEN ([facility]) Heart rate 82 /min 82 /min MEDGEN ([facility]) Respiratory rate 16 /min 16 /min MEDGEN ( [facility]) Body temperature 98.7 F 98.7 F MEDGEN ( [facility]) Inhaled oxygen 98 % 98 % MEDGEN ([facility]) Body mass index 22.4 kg/m2 22.4 kg/m2 MEDGEN (S t (BMI) [Ratio] [facility]) Diastolic blood 97 mm[Hg] 97 mm[Hg] MEDGEN (S t pressure [facility]) Systolic blood 171 mm[Hg] 171 mm[Hg] MEDGEN ([facility]) Body weight 139 lb 139 lb MEDGEN ([facility]) Body height 66 in 66 in MEDGEN ([facility]) Heart rate 82 /min 82 /min MEDGEN ([facility]) Respiratory rate 16 /min 16 /min MEDGEN ( [facility]) Body temperature 98.7 F 98.7 F MEDGEN ( [facility]) Inhaled oxygen 98 % 98 % MEDGEN ([facility]) Body mass index 22.4 kg/m2 22.4 kg/m2 MEDGEN (S t (BMI) [Ratio] [facility], ) Diastolic blood 97 mm[Hg] 97 mm[Hg] MEDGEN (S t [facility]) Systolic blood 171 mm[Hg] 171 mm[Hg] MEDGEN ([facility]) Body weight 139 lb 139 lb MEDGEN ([facility]) Body height 66 in 66 in MEDGEN ([facility]) Heart rate 82 /min 82 /min MEDGEN ([facility]) Respiratory rate 16 /min 16 /min MEDGEN ( [facility]) Body temperature 98.7 F 98.7 F MEDGEN ( [facility]) Inhaled oxygen 98 % 98 % MEDGEN ([facility]) Body mass index 22.4 kg/m2 22.4 kg/m2 MEDGEN (S t (BMI) [Ratio] [facility], ) Diastolic blood 97 mm[Hg] 97 mm[Hg] MEDGEN (S t pressure [facility]) Systolic blood 171 mm[Hg] 171 mm[Hg] MEDGEN ([facility]) Body weight 139 lb 139 lb MEDGEN ([facility]) Body height 66 in 66 in MEDGEN ([facility]) Heart rate 82 /min 82 /min MEDGEN ([facility]) Respiratory rate 16 /min 16 /min MEDGEN ( [facility]) Body temperature 98.7 F 98.7 F MEDGEN ( [facility]) Inhaled oxygen 98 % 98 % MEDGEN ([facility]) Body mass index 22.4 kg/m2 22.4 kg/m2 MEDGEN (S t (BMI) [Ratio] [facility], ) Diastolic blood 97 mm[Hg] 97 mm[Hg] MEDGEN (S t [facility]) Systolic blood 171 mm[Hg] 171 mm[Hg] MEDGEN ([facility]) Body weight 139 lb 139 lb MEDGEN ([facility]) Body height 66 in 66 in MEDGEN ([facility]) Heart rate 82 /min 82 /min MEDGEN ([facility]) Respiratory rate 16 /min 16 /min MEDGEN ( [facility]) Body temperature 98.7 F 98.7 F MEDGEN ( [facility]) Inhaled oxygen 98 % 98 % MEDGEN ([facility]) Body mass index 22.4 kg/m2 22.4 kg/m2 MEDGEN (S t (BMI) [Ratio] [facility], ) Diastolic blood 97 mm[Hg] 97 mm[Hg] MEDGEN (S t [facility]) Systolic blood 171 mm[Hg] 171 mm[Hg] MEDGEN ([facility]) Body weight 139 lb 139 lb MEDGEN ([facility]) Body height 66 in 66 in MEDGEN ([facility]) Heart rate 82 /min 82 /min MEDGEN ([facility]) Respiratory rate 16 /min 16 /min MEDGEN ( [facility]) Body temperature 98.7 F 98.7 F MEDGEN ( [facility]) Inhaled oxygen 98 % 98 % MEDGEN ([facility]) Body mass index 22.4 kg/m2 22.4 kg/m2 MEDGEN (S t (BMI) [Ratio] [facility]) Diastolic blood 97 mm[Hg] 97 mm[Hg] MEDGEN (S t pressure [facility]) Systolic blood 171 mm[Hg] 171 mm[Hg] MEDGEN ([facility]) Body weight 139 lb 139 lb MEDGEN ([facility]) Body height 66 in 66 in MEDGEN ([facility]) Heart rate 82 /min 82 /min MEDGEN ([facility]) Respiratory rate 16 /min 16 /min MEDGEN ( [facility]) Body temperature 98.7 F 98.7 F MEDGEN ( [facility]) Inhaled oxygen 98 % 98 % MEDGEN ([facility]) Body mass index 22.4 kg/m2 22.4 kg/m2 MEDGEN (S t (BMI) [Ratio] [facility], ) Diastolic blood 97 mm[Hg] 97 mm[Hg] MEDGEN (S t pressure [facility]) Systolic blood 171 mm[Hg] 171 mm[Hg] MEDGEN ([facility]) Body weight 139 lb 139 lb MEDGEN ([facility]) Body height 66 in 66 in MEDGEN ([facility]) Heart rate 82 /min 82 /min MEDGEN ([facility]) Respiratory rate 16 /min 16 /min MEDGEN ( [facility]) Body temperature 98.7 F 98.7 F MEDGEN ( [facility]) Inhaled oxygen 98 % 98 % MEDGEN ([facility]) Body mass index 22.4 kg/m2 22.4 kg/m2 MEDGEN (S t (BMI) [Ratio] [facility], ) Diastolic blood 97 mm[Hg] 97 mm[Hg] MEDGEN (S [facility]) Systolic blood 171 mm[Hg] 171 mm[Hg] MEDGEN ([facility]) Body weight 139 lb 139 lb MEDGEN ([facility]) Body height 66 in 66 in MEDGEN ([facility]) Heart rate 82 /min 82 /min MEDGEN ([facility]) Respiratory rate 16 /min 16 /min MEDGEN ( [facility]) Body temperature 98.7 F 98.7 F MEDGEN ( [facility]) Inhaled oxygen 98 % 98 % MEDGEN ([facility]) Body mass index 22.4 kg/m2 22.4 kg/m2 MEDGEN (S t (BMI) [facility] Diastolic blood 97 mm[Hg] 97 mm[Hg] MEDGEN (S t pressure [facility]) Systolic blood 171 mm[Hg] 171 mm[Hg] MEDGEN ([facility]) Body weight 139 lb 139 lb MEDGEN ([facility]) Body height 66 in 66 in MEDGEN ([facility]) Heart rate 82 /min 82 /min MEDGEN ([facility]) Respiratory rate 16 /min 16 /min MEDGEN ( [facility]) Body temperature 98.7 F 98.7 F MEDGEN ( [facility]) Inhaled oxygen 98 % 98 % MEDGEN ([facility]) Body mass index 22.4 kg/m2 22.4 kg/m2 MEDGEN (S t (BMI) [Ratio] [facility], ) Diastolic blood 97 mm[Hg] 97 mm[Hg] MEDGEN (S t [facility]) Systolic blood 171 mm[Hg] 171 mm[Hg] MEDGEN ([facility]) Body weight 139 lb 139 lb MEDGEN ([facility]) Body height 66 in 66 in MEDGEN ([facility]) Heart rate 80 /min 80 /min MEDGEN ([facility]) Respiratory rate 14 /min 14 /min MEDGEN ( [facility]) Body temperature 98.4 F 98.4 F MEDGEN ( [facility]) Inhaled oxygen 100 % 100 % MEDGEN ([facility]) Body mass index 22.4 kg/m2 22.4 kg/m2 MEDGEN (S t (BMI) [Ratio] [facility]) Diastolic blood 90 mm[Hg] 90 mm[Hg] MEDGEN (S t pressure [facility]) Systolic blood 155 mm[Hg] 155 mm[Hg] MEDGEN ([facility]) Body weight 139 lb 139 lb MEDGEN ([facility]) Body height 66 in 66 in MEDGEN ([facility]) Heart rate 80 /min 80 /min MEDGEN ([facility]) Respiratory rate 14 /min 14 /min MEDGEN ( [facility]) Body temperature 98.4 F 98.4 F MEDGEN ( [facility]) Inhaled oxygen 100 % 100 % MEDGEN ([facility]) Body mass index 22.4 kg/m2 22.4 kg/m2 MEDGEN (S t (BMI) [Ratio] [facility], ) Diastolic blood 90 mm[Hg] 90 mm[Hg] MEDGEN (S t pressure [facility]) Systolic blood 155 mm[Hg] 155 mm[Hg] MEDGEN ([facility]) Body weight 139 lb 139 lb MEDGEN ([facility]) Body height 66 in 66 in MEDGEN ([facility]) Heart rate 80 /min 80 /min MEDGEN ([facility]) Respiratory rate 14 /min 14 /min MEDGEN ( [facility]) Body temperature 98.4 F 98.4 F MEDGEN ( [facility]) Inhaled oxygen 100 % 100 % MEDGEN ([facility]) Body mass index 22.4 kg/m2 22.4 kg/m2 MEDGEN (S t (BMI) [Ratio] [facility]) Diastolic blood 90 mm[Hg] 90 mm[Hg] MEDGEN (S t [facility]) Systolic blood 155 mm[Hg] 155 mm[Hg] MEDGEN ([facility]) Body weight 139 lb 139 lb MEDGEN ([facility]) Body height 66 in 66 in MEDGEN ([facility]) Heart rate 80 /min 80 /min MEDGEN ([facility]) Respiratory rate 14 /min 14 /min MEDGEN ( [facility]) Body temperature 98.4 F 98.4 F MEDGEN ( [facility]) Inhaled oxygen 100 % 100 % MEDGEN ([facility]) Body mass index 22.4 kg/m2 22.4 kg/m2 MEDGEN (S t (BMI) [Ratio] [facility], ) Diastolic blood 90 mm[Hg] 90 mm[Hg] MEDGEN (S t [facility]) Systolic blood 155 mm[Hg] 155 mm[Hg] MEDGEN ([facility]) Body weight 139 lb 139 lb MEDGEN ([facility]) Body height 66 in 66 in MEDGEN ([facility]) Heart rate 80 /min 80 /min MEDGEN ([facility]) Respiratory rate 14 /min 14 /min MEDGEN ( [facility]) Body temperature 98.4 F 98.4 F MEDGEN ( [facility]) Inhaled oxygen 100 % 100 % MEDGEN ([facility]) Body mass index 22.4 kg/m2 22.4 kg/m2 MEDGEN (S t (BMI) [Ratio] [facility]) Diastolic blood 90 mm[Hg] 90 mm[Hg] MEDGEN (S [facility]) Systolic blood 155 mm[Hg] 155 mm[Hg] MEDGEN ([facility]) Body weight 139 lb 139 lb MEDGEN ([facility]) Body height 66 in 66 in MEDGEN ([facility]) Heart rate 80 /min 80 /min MEDGEN ([facility]) Respiratory rate 14 /min 14 /min MEDGEN ( [facility]) Body temperature 98.4 F 98.4 F MEDGEN ( [facility]) Inhaled oxygen 100 % 100 % MEDGEN ([facility]) Body mass index 22.4 kg/m2 22.4 kg/m2 MEDGEN (S t (BMI) [Ratio] [facility]) Diastolic blood 90 mm[Hg] 90 mm[Hg] MEDGEN (S t [facility]) Systolic blood 155 mm[Hg] 155 mm[Hg] MEDGEN ([facility]) Body weight 139 lb 139 lb MEDGEN ([facility]) Body height 66 in 66 in MEDGEN ([facility]) Heart rate 80 /min 80 /min MEDGEN ([facility]) Respiratory rate 14 /min 14 /min MEDGEN ( [facility]) Body temperature 98.4 F 98.4 F MEDGEN ( [facility]) Inhaled oxygen 100 % 100 % MEDGEN ([facility]) Body mass index 22.4 kg/m2 22.4 kg/m2 MEDGEN (S t (BMI) [Ratio] [facility]) Diastolic blood 90 mm[Hg] 90 mm[Hg] MEDGEN (S t [facility]) Systolic blood 155 mm[Hg] 155 mm[Hg] MEDGEN ([facility]) Body weight 139 lb 139 lb MEDGEN ([facility]) Body height 66 in 66 in MEDGEN ([facility]) Heart rate 80 /min 80 /min MEDGEN ([facility]) Respiratory rate 14 /min 14 /min MEDGEN ( [facility]) Body temperature 98.4 F 98.4 F MEDGEN ( [facility]) Inhaled oxygen 100 % 100 % MEDGEN ([facility]) Body mass index 22.4 kg/m2 22.4 kg/m2 MEDGEN (S t (BMI) [Ratio] [facility]) Diastolic blood 90 mm[Hg] 90 mm[Hg] MEDGEN (S [facility]) Systolic blood 155 mm[Hg] 155 mm[Hg] MEDGEN ([facility]) Body weight 139 lb 139 lb MEDGEN ([facility]) Body height 66 in 66 in MEDGEN ([facility]) Heart rate 80 /min 80 /min MEDGEN ([facility]) Respiratory rate 14 /min 14 /min MEDGEN ( [facility]) Body temperature 98.4 F 98.4 F MEDGEN ( [facility]) Inhaled oxygen 100 % 100 % MEDGEN ([facility]) Body mass index 22.4 kg/m2 22.4 kg/m2 MEDGEN (S t (BMI) [Ratio] [facility]) Diastolic blood 90 mm[Hg] 90 mm[Hg] MEDGEN (S t [facility]) Systolic blood 155 mm[Hg] 155 mm[Hg] MEDGEN ([facility]) Body weight 139 lb 139 lb MEDGEN ([facility]) Body height 66 in 66 in MEDGEN ([facility]) Heart rate 80 /min 80 /min MEDGEN ([facility]) Respiratory rate 14 /min 14 /min MEDGEN ( [facility]) Body temperature 98.4 F 98.4 F MEDGEN ( [facility]) Inhaled oxygen 100 % 100 % MEDGEN ([facility], ) Body mass index 22.4 kg/m2 22.4 kg/m2 MEDGEN (S t (BMI) [Ratio] [facility], ) Diastolic blood 90 mm[Hg] 90 mm[Hg] MEDGEN (S t pressure [facility]) Systolic blood 155 mm[Hg] 155 mm[Hg] MEDGEN ([facility]) Body weight 139 lb 139 lb MEDGEN ([facility]) Body height 66 in 66 in MEDGEN ([facility]) Heart rate 80 /min 80 /min MEDGEN ([facility]) Respiratory rate 14 /min 14 /min MEDGEN ( [facility]) Body temperature 98.4 F 98.4 F MEDGEN ( [facility]) Inhaled oxygen 100 % 100 % MEDGEN ([facility], ) Body mass index 22.4 kg/m2 22.4 kg/m2 MEDGEN (S t (BMI) [Ratio] [facility], ) Diastolic blood 90 mm[Hg] 90 mm[Hg] MEDGEN (S t pressure [facility]) Systolic blood 155 mm[Hg] 155 mm[Hg] MEDGEN ([facility]) Body weight 139 lb 139 lb MEDGEN ([facility]) Body height 66 in 66 in MEDGEN ([facility]) Heart rate 80 /min 80 /min MEDGEN ([facility]) Respiratory rate 14 /min 14 /min MEDGEN ( [facility]) Body temperature 98.4 F 98.4 F MEDGEN ( [facility]) Inhaled oxygen 100 % 100 % MEDGEN ([facility], ) Body mass index 22.4 kg/m2 22.4 kg/m2 MEDGEN (S t (BMI) [Ratio] [facility], ) Diastolic blood 90 mm[Hg] 90 mm[Hg] MEDGEN (S t pressure [facility]) Systolic blood 155 mm[Hg] 155 mm[Hg] MEDGEN ([facility]) Body weight 139 lb 139 lb MEDGEN ([facility]) Body height 66 in 66 in MEDGEN ([facility]) Heart rate 80 /min 80 /min MEDGEN ([facility]) Respiratory rate 14 /min 14 /min MEDGEN ( [facility]) Body temperature 98.4 F 98.4 F MEDGEN ( [facility]) Inhaled oxygen 100 % 100 % MEDGEN ([facility]) Body mass index 22.4 kg/m2 22.4 kg/m2 MEDGEN (S t (BMI) [Ratio] [facility], ) Diastolic blood 90 mm[Hg] 90 mm[Hg] MEDGEN (S t [facility]) Systolic blood 155 mm[Hg] 155 mm[Hg] MEDGEN ([facility]) Body weight 139 lb 139 lb MEDGEN ([facility]) Body height 66 in 66 in MEDGEN ([facility]) Heart rate 80 /min 80 /min MEDGEN ([facility]) Respiratory rate 14 /min 14 /min MEDGEN ( [facility]) Body temperature 98.4 F 98.4 F MEDGEN ( [facility]) Inhaled oxygen 100 % 100 % MEDGEN ([facility], ) Body mass index 22.4 kg/m2 22.4 kg/m2 MEDGEN (S t (BMI) [Ratio] [facility], ) Diastolic blood 90 mm[Hg] 90 mm[Hg] MEDGEN (S t pressure [facility]) Systolic blood 155 mm[Hg] 155 mm[Hg] MEDGEN ([facility]) Body weight 139 lb 139 lb MEDGEN ([facility]) Body height 66 in 66 in MEDGEN ([facility]) Heart rate 80 /min 80 /min MEDGEN ([facility]) Respiratory rate 14 /min 14 /min MEDGEN ( [facility]) Body temperature 98.4 F 98.4 F MEDGEN ( [facility]) Inhaled oxygen 100 % 100 % MEDGEN ([facility], ) Body mass index 22.4 kg/m2 22.4 kg/m2 MEDGEN (S t (BMI) [Ratio] [facility], ) Diastolic blood 90 mm[Hg] 90 mm[Hg] MEDGEN (S [facility]) Systolic blood 155 mm[Hg] 155 mm[Hg] MEDGEN ([facility]) Body weight 139 lb 139 lb MEDGEN ([facility]) Body height 66 in 66 in MEDGEN ([facility]) Heart rate 85 /min 85 /min MEDGEN ([facility]) Respiratory rate 14 /min 14 /min MEDGEN ( [facility]) Body temperature 98.1 F 98.1 F MEDGEN ( [facility]) Inhaled oxygen 99 % 99 % MEDGEN ([facility]) Body mass index 24.5 kg/m2 24.5 kg/m2 MEDGEN (S t (BMI) [Ratio] [facility], ) Diastolic blood 91 mm[Hg] 91 mm[Hg] MEDGEN (S [facility]) Systolic blood 135 mm[Hg] 135 mm[Hg] MEDGEN ([facility]) Body weight 152 lb 152 lb MEDGEN ([facility]) Body height 66 in 66 in MEDGEN ([facility]) Heart rate 85 /min 85 /min MEDGEN ([facility]) Respiratory rate 14 /min 14 /min MEDGEN ( [facility]) Body temperature 98.1 F 98.1 F MEDGEN ( [facility]) Inhaled oxygen 99 % 99 % MEDGEN ([facility], ) Body mass index 24.5 kg/m2 24.5 kg/m2 MEDGEN (S t (BMI) [Ratio] [facility], ) Diastolic blood 91 mm[Hg] 91 mm[Hg] MEDGEN (S t pressure [facility]) Systolic blood 135 mm[Hg] 135 mm[Hg] MEDGEN ([facility]) Body weight 152 lb 152 lb MEDGEN ([facility]) Body height 66 in 66 in MEDGEN ([facility]) Heart rate 85 /min 85 /min MEDGEN ([facility]) Respiratory rate 14 /min 14 /min MEDGEN ( [facility]) Body temperature 98.1 F 98.1 F MEDGEN ( [facility]) Inhaled oxygen 99 % 99 % MEDGEN ([facility], ) Body mass index 24.5 kg/m2 24.5 kg/m2 MEDGEN (S t (BMI) [Ratio] [facility], ) Diastolic blood 91 mm[Hg] 91 mm[Hg] MEDGEN (S t pressure [facility]) Systolic blood 135 mm[Hg] 135 mm[Hg] MEDGEN ([facility]) Body weight 152 lb 152 lb MEDGEN ([facility]) Body height 66 in 66 in MEDGEN ([facility]) Heart rate 85 /min 85 /min MEDGEN ([facility]) Respiratory rate 14 /min 14 /min MEDGEN ( [facility]) Body temperature 98.1 F 98.1 F MEDGEN ( [facility]) Inhaled oxygen 99 % 99 % MEDGEN ([facility], ) Body mass index 24.5 kg/m2 24.5 kg/m2 MEDGEN (S t (BMI) [Ratio] [facility], ) Diastolic blood 91 mm[Hg] 91 mm[Hg] MEDGEN (S t pressure [facility]) Systolic blood 135 mm[Hg] 135 mm[Hg] MEDGEN ([facility] , ) Body weight 152 lb 152 lb MEDGEN ([facility]) Body height 66 in 66 in MEDGEN ([facility]) Heart rate 85 /min 85 /min MEDGEN ([facility]) Respiratory rate 14 /min 14 /min MEDGEN ( [facility]) Body temperature 98.1 F 98.1 F MEDGEN ( [facility]) Inhaled oxygen 99 % 99 % MEDGEN ([facility], ) Body mass index 24.5 kg/m2 24.5 kg/m2 MEDGEN (S t (BMI) [Ratio] [facility], ) Diastolic blood 91 mm[Hg] 91 mm[Hg] MEDGEN (S t pressure [facility]) Systolic blood 135 mm[Hg] 135 mm[Hg] MEDGEN ([facility]) Body weight 152 lb 152 lb MEDGEN ([facility]) Body height 66 in 66 in MEDGEN ([facility]) Body mass index 24.5 kg/m2 24.5 kg/m2 MEDGEN (S t (BMI) [Ratio] [facility]) Diastolic blood 91 mm[Hg] 91 mm[Hg] MEDGEN (S t [facility]) Systolic blood 135 mm[Hg] 135 mm[Hg] MEDGEN ([facility]) Body weight 152 lb 152 lb MEDGEN ([facility]) Body height 66 in 66 in MEDGEN ([facility]) Heart rate 85 /min 85 /min MEDGEN ([facility]) Respiratory rate 14 /min 14 /min MEDGEN ( [facility]) Body temperature 98.1 F 98.1 F MEDGEN ( [facility]) Inhaled oxygen 99 % 99 % MEDGEN ([facility]) Heart rate 85 /min 85 /min MEDGEN ([facility]) Respiratory rate 14 /min 14 /min MEDGEN ( [facility]) Body temperature 98.1 F 98.1 F MEDGEN ( [facility]) Inhaled oxygen 99 % 99 % MEDGEN ([facility]) Body mass index 24.5 kg/m2 24.5 kg/m2 MEDGEN (S t (BMI) [Ratio] [facility], ) Diastolic blood 91 mm[Hg] 91 mm[Hg] MEDGEN (S t [facility]) Systolic blood 135 mm[Hg] 135 mm[Hg] MEDGEN ([facility]) Body weight 152 lb 152 lb MEDGEN ([facility]) Body height 66 in 66 in MEDGEN ([facility]) Inhaled oxygen 99 % 99 % MEDGEN ([facility]) Body mass index 24.5 kg/m2 24.5 kg/m2 MEDGEN (S t (BMI) [Ratio] [facility], ) Diastolic blood 91 mm[Hg] 91 mm[Hg] MEDGEN (S t pressure [facility]) Systolic blood 135 mm[Hg] 135 mm[Hg] MEDGEN ([facility]) Body weight 152 lb 152 lb MEDGEN ([facility]) Body height 66 in 66 in MEDGEN ([facility]) Heart rate 85 /min 85 /min MEDGEN ([facility]) Respiratory rate 14 /min 14 /min MEDGEN ( [facility]) Body temperature 98.1 F 98.1 F MEDGEN ( [facility]) Heart rate 85 /min 85 /min MEDGEN ([facility]) Respiratory rate 14 /min 14 /min MEDGEN ( [facility]) Body temperature 98.1 F 98.1 F MEDGEN ( [facility]) Inhaled oxygen 99 % 99 % MEDGEN ([facility], ) Body mass index 24.5 kg/m2 24.5 kg/m2 MEDGEN (S t (BMI) [Ratio] [facility], ) Diastolic blood 91 mm[Hg] 91 mm[Hg] MEDGEN (S t pressure [facility]) Systolic blood 135 mm[Hg] 135 mm[Hg] MEDGEN ([facility]) Body weight 152 lb 152 lb MEDGEN ([facility]) Body height 66 in 66 in MEDGEN ([facility]) Heart rate 85 /min 85 /min MEDGEN ([facility]) Respiratory rate 14 /min 14 /min MEDGEN ( [facility]) Body temperature 98.1 F 98.1 F MEDGEN ( [facility]) Inhaled oxygen 99 % 99 % MEDGEN ([facility]) Body mass index 24.5 kg/m2 24.5 kg/m2 MEDGEN (S t (BMI) [Ratio] [facility]) Diastolic blood 91 mm[Hg] 91 mm[Hg] MEDGEN (S t [facility]) Systolic blood 135 mm[Hg] 135 mm[Hg] MEDGEN ([facility]) Body weight 152 lb 152 lb MEDGEN ([facility]) Body height 66 in 66 in MEDGEN ([facility]) Heart rate 85 /min 85 /min MEDGEN ([facility]) Respiratory rate 14 /min 14 /min MEDGEN ( [facility]) Heart rate 85 /min 85 /min MEDGEN ([facility]) Respiratory rate 14 /min 14 /min MEDGEN ( [facility]) Body temperature 98.1 F 98.1 F MEDGEN ( [facility]) Inhaled oxygen 99 % 99 % MEDGEN ([facility]) Body mass index 24.5 kg/m2 24.5 kg/m2 MEDGEN (S t (BMI) [Ratio] [facility]) Diastolic blood 91 mm[Hg] 91 mm[Hg] MEDGEN (S [facility]) Systolic blood 135 mm[Hg] 135 mm[Hg] MEDGEN ([facility]) Body weight 152 lb 152 lb MEDGEN ([facility]) Body height 66 in 66 in MEDGEN ([facility]) Body temperature 98.1 F 98.1 F MEDGEN ( [facility]) Inhaled oxygen 99 % 99 % MEDGEN ([facility]) Body mass index 24.5 kg/m2 24.5 kg/m2 MEDGEN (S t (BMI) [Ratio] [facility]) Diastolic blood 91 mm[Hg] 91 mm[Hg] MEDGEN (S t [facility]) Systolic blood 135 mm[Hg] 135 mm[Hg] MEDGEN ([facility]) Body weight 152 lb 152 lb MEDGEN ([facility]) Body height 66 in 66 in MEDGEN ([facility]) Heart rate 85 /min 85 /min MEDGEN ([facility]) Respiratory rate 14 /min 14 /min MEDGEN ( [facility]) Body temperature 98.1 F 98.1 F MEDGEN ( [facility]) Inhaled oxygen 99 % 99 % MEDGEN ([facility], ) Body mass index 24.5 kg/m2 24.5 kg/m2 MEDGEN (S t (BMI) [Ratio] [facility], ) Diastolic blood 91 mm[Hg] 91 mm[Hg] MEDGEN (S [facility]) Systolic blood 135 mm[Hg] 135 mm[Hg] MEDGEN ([facility]) Body weight 152 lb 152 lb MEDGEN ([facility]) Body height 66 in 66 in MEDGEN ([facility]) Heart rate 85 /min 85 /min MEDGEN ([facility]) Respiratory rate 14 /min 14 /min MEDGEN ( [facility]) Body temperature 98.1 F 98.1 F MEDGEN ( [facility]) Inhaled oxygen 99 % 99 % MEDGEN ([facility], ) Body mass index 24.5 kg/m2 24.5 kg/m2 MEDGEN (S t (BMI) [Ratio] [facility], ) Diastolic blood 91 mm[Hg] 91 mm[Hg] MEDGEN (S t pressure [facility]) Systolic blood 135 mm[Hg] 135 mm[Hg] MEDGEN ([facility]) Body weight 152 lb 152 lb MEDGEN ([facility]) Body height 66 in 66 in MEDGEN ([facility]) Heart rate 85 /min 85 /min MEDGEN ([facility]) Respiratory rate 14 /min 14 /min MEDGEN ( [facility]) Body temperature 98.1 F 98.1 F MEDGEN ( [facility]) Inhaled oxygen 99 % 99 % MEDGEN ([facility], ) Body mass index 24.5 kg/m2 24.5 kg/m2 MEDGEN (S t (BMI) [Ratio] [facility], ) Diastolic blood 91 mm[Hg] 91 mm[Hg] MEDGEN (S t pressure [facility]) Systolic blood 135 mm[Hg] 135 mm[Hg] MEDGEN ([facility]) Body weight 152 lb 152 lb MEDGEN ([facility]) Body height 66 in 66 in MEDGEN ([facility]) Heart rate 92 /min 92 /min MEDGEN ([facility]) Respiratory rate 14 /min 14 /min MEDGEN ( [facility]) Body temperature 98 F 98 F MEDGEN ( [facility]) Inhaled oxygen 100 % 100 % MEDGEN ([facility]) Body mass index 24.5 kg/m2 24.5 kg/m2 MEDGEN (S t (BMI) [Ratio] [facility], ) Diastolic blood 107 mm[Hg] 107 mm[Hg] MEDGEN (S t pressure [facility]) Systolic blood 169 mm[Hg] 169 mm[Hg] MEDGEN ([facility]) Body weight 152 lb 152 lb MEDGEN ([facility]) Body height 66 in 66 in MEDGEN ([facility]) Heart rate 92 /min 92 /min MEDGEN ([facility]) Respiratory rate 14 /min 14 /min MEDGEN ( [facility]) Body temperature 98 F 98 F MEDGEN ( [facility]) Inhaled oxygen 100 % 100 % MEDGEN ([facility]) Body mass index 24.5 kg/m2 24.5 kg/m2 MEDGEN (S t (BMI) [Ratio] [facility], ) Diastolic blood 107 mm[Hg] 107 mm[Hg] MEDGEN (S t pressure [facility]) Systolic blood 169 mm[Hg] 169 mm[Hg] MEDGEN ([facility]) Body weight 152 lb 152 lb MEDGEN ([facility]) Body height 66 in 66 in MEDGEN ([facility]) Heart rate 92 /min 92 /min MEDGEN ([facility]) Respiratory rate 14 /min 14 /min MEDGEN ( [facility]) Body temperature 98 F 98 F MEDGEN ( [facility]) Inhaled oxygen 100 % 100 % MEDGEN ([facility], ) Body mass index 24.5 kg/m2 24.5 kg/m2 MEDGEN (S t (BMI) [Ratio] [facility], ) Diastolic blood 107 mm[Hg] 107 mm[Hg] MEDGEN (S t pressure [facility]) Systolic blood 169 mm[Hg] 169 mm[Hg] MEDGEN ([facility]) Body weight 152 lb 152 lb MEDGEN ([facility]) Body height 66 in 66 in MEDGEN ([facility]) Heart rate 92 /min 92 /min MEDGEN ([facility] , ) Respiratory rate 14 /min 14 /min MEDGEN ( [facility]) Body temperature 98 F 98 F MEDGEN ( [facility]) Inhaled oxygen 100 % 100 % MEDGEN ([facility], ) Body mass index 24.5 kg/m2 24.5 kg/m2 MEDGEN (S t (BMI) [Ratio] [facility], ) Diastolic blood 107 mm[Hg] 107 mm[Hg] MEDGEN (S t pressure [facility] , ) Systolic blood 169 mm[Hg] 169 mm[Hg] MEDGEN ([facility] , ) Body weight 152 lb 152 lb MEDGEN ([facility]) Body height 66 in 66 in MEDGEN ([facility]) Heart rate 92 /min 92 /min MEDGEN ([facility]) Respiratory rate 14 /min 14 /min MEDGEN ( [facility]) Body temperature 98 F 98 F MEDGEN ( [facility]) Inhaled oxygen 100 % 100 % MEDGEN ([facility], ) Body mass index 24.5 kg/m2 24.5 kg/m2 MEDGEN (S t (BMI) [Ratio[facility] Diastolic blood 107 mm[Hg] 107 mm[Hg] MEDGEN (S t pressure [facility]) Systolic blood 169 mm[Hg] 169 mm[Hg] MEDGEN ([facility]) Body weight 152 lb 152 lb MEDGEN ([facility]) Body height 66 in 66 in MEDGEN ([facility]) Heart rate 92 /min 92 /min MEDGEN ([facility]) Respiratory rate 14 /min 14 /min MEDGEN ( [facility]) Body temperature 98 F 98 F MEDGEN ( [facility]) Inhaled oxygen 100 % 100 % MEDGEN ([facility]) Body mass index 24.5 kg/m2 24.5 kg/m2 MEDGEN (S t (BMI) [Ratio] [facility], ) Diastolic blood 107 mm[Hg] 107 mm[Hg] MEDGEN (S t [facility]) Systolic blood 169 mm[Hg] 169 mm[Hg] MEDGEN ([facility]) Body weight 152 lb 152 lb MEDGEN ([facility]) Body height 66 in 66 in MEDGEN ([facility]) Heart rate 92 /min 92 /min MEDGEN ([facility]) Respiratory rate 14 /min 14 /min MEDGEN ( [facility]) Body temperature 98 F 98 F MEDGEN ( [facility]) Inhaled oxygen 100 % 100 % MEDGEN ([facility]) Body mass index 24.5 kg/m2 24.5 kg/m2 MEDGEN (S t (BMI) [Ratio] [facility], ) Diastolic blood 107 mm[Hg] 107 mm[Hg] MEDGEN (S t pressure [facility]) Systolic blood 169 mm[Hg] 169 mm[Hg] MEDGEN ([facility]) Body weight 152 lb 152 lb MEDGEN ([facility]) Body height 66 in 66 in MEDGEN ([facility]) Heart rate 92 /min 92 /min MEDGEN ([facility]) Respiratory rate 14 /min 14 /min MEDGEN ( [facility]) Body temperature 98 F 98 F MEDGEN ( [facility]) Inhaled oxygen 100 % 100 % MEDGEN ([facility], ) Body mass index 24.5 kg/m2 24.5 kg/m2 MEDGEN (S t (BMI) [Ratio] [facility], ) Diastolic blood 107 mm[Hg] 107 mm[Hg] MEDGEN (S t pressure [facility] , ) Systolic blood 169 mm[Hg] 169 mm[Hg] MEDGEN ([facility]) Body weight 152 lb 152 lb MEDGEN ([facility]) Body height 66 in 66 in MEDGEN ([facility]) Heart rate 92 /min 92 /min MEDGEN ([facility]) Respiratory rate 14 /min 14 /min MEDGEN ( [facility]) Body temperature 98 F 98 F MEDGEN ( [facility]) Inhaled oxygen 100 % 100 % MEDGEN ([facility], ) Body mass index 24.5 kg/m2 24.5 kg/m2 MEDGEN (S t (BMI) [Ratio] [facility], ) Diastolic blood 107 mm[Hg] 107 mm[Hg] MEDGEN (S t pressure [facility] , ) Systolic blood 169 mm[Hg] 169 mm[Hg] MEDGEN ([facility]) Body weight 152 lb 152 lb MEDGEN ([facility]) Body height 66 in 66 in MEDGEN ([facility]) Heart rate 92 /min 92 /min MEDGEN ([facility]) Respiratory rate 14 /min 14 /min MEDGEN ( [facility]) Body temperature 98 F 98 F MEDGEN ( [facility]) Inhaled oxygen 100 % 100 % MEDGEN ([facility], ) Body mass index 24.5 kg/m2 24.5 kg/m2 MEDGEN (S t (BMI) [Ratio] [facility], ) Diastolic blood 107 mm[Hg] 107 mm[Hg] MEDGEN (S t pressure [facility] , ) Systolic blood 169 mm[Hg] 169 mm[Hg] MEDGEN ([facility]) Body weight 152 lb 152 lb MEDGEN ([facility]) Body height 66 in 66 in MEDGEN ([facility]) Heart rate 92 /min 92 /min MEDGEN ([facility]) Respiratory rate 14 /min 14 /min MEDGEN ( [facility]) Body temperature 98 F 98 F MEDGEN ( [facility]) Inhaled oxygen 100 % 100 % MEDGEN ([facility], ) Body mass index 24.5 kg/m2 24.5 kg/m2 MEDGEN (S t (BMI) [Ratio] [facility], ) Diastolic blood 107 mm[Hg] 107 mm[Hg] MEDGEN (S t [facility]) Systolic blood 169 mm[Hg] 169 mm[Hg] MEDGEN ([facility]) Body weight 152 lb 152 lb MEDGEN ([facility]) Body height 66 in 66 in MEDGEN ([facility]) Heart rate 92 /min 92 /min MEDGEN ([facility]) Respiratory rate 14 /min 14 /min MEDGEN ( [facility]) Body temperature 98 F 98 F MEDGEN ( [facility]) Inhaled oxygen 100 % 100 % MEDGEN ([facility], ) Body mass index 24.5 kg/m2 24.5 kg/m2 MEDGEN (S t (BMI) [Ratio] [facility], ) Diastolic blood 107 mm[Hg] 107 mm[Hg] MEDGEN (S t pressure [facility]) Systolic blood 169 mm[Hg] 169 mm[Hg] MEDGEN ([facility]) Body weight 152 lb 152 lb MEDGEN ([facility]) Body height 66 in 66 in MEDGEN ([facility]) Heart rate 92 /min 92 /min MEDGEN ([facility]) Respiratory rate 14 /min 14 /min MEDGEN ( [facility]) Body temperature 98 F 98 F MEDGEN ( [facility]) Inhaled oxygen 100 % 100 % MEDGEN ([facility]) Body mass index 24.5 kg/m2 24.5 kg/m2 MEDGEN (S t (BMI) [Ratio] [facility], ) Diastolic blood 107 mm[Hg] 107 mm[Hg] MEDGEN (S t pressure [facility]) Systolic blood 169 mm[Hg] 169 mm[Hg] MEDGEN ([facility]) Body weight 152 lb 152 lb MEDGEN ([facility]) Body height 66 in 66 in MEDGEN ([facility]) Heart rate 92 /min 92 /min MEDGEN ([facility]) Respiratory rate 14 /min 14 /min MEDGEN ( [facility]) Body temperature 98 F 98 F MEDGEN ( [facility]) Inhaled oxygen 100 % 100 % MEDGEN ([facility], ) Body mass index 24.5 kg/m2 24.5 kg/m2 MEDGEN (S t (BMI) [Ratio] [facility], ) Diastolic blood 107 mm[Hg] 107 mm[Hg] MEDGEN (S t pressure [facility] , ) Systolic blood 169 mm[Hg] 169 mm[Hg] MEDGEN ([facility]) Body weight 152 lb 152 lb MEDGEN ([facility]) Body height 66 in 66 in MEDGEN ([facility]) Heart rate 92 /min 92 /min MEDGEN ([facility]) Respiratory rate 14 /min 14 /min MEDGEN ( [facility]) Body temperature 98 F 98 F MEDGEN ( [facility]) Inhaled oxygen 100 % 100 % MEDGEN ([facility], ) Body mass index 24.5 kg/m2 24.5 kg/m2 MEDGEN (S t (BMI) [Ratio] [facility], ) Diastolic blood 107 mm[Hg] 107 mm[Hg] MEDGEN (S t pressure [facility] , ) Systolic blood 169 mm[Hg] 169 mm[Hg] MEDGEN ([facility]) Body weight 152 lb 152 lb MEDGEN ([facility]) Body height 66 in 66 in MEDGEN ([facility]) Heart rate 72 /min 72 /min MEDGEN ([facility]) Respiratory rate 14 /min 14 /min MEDGEN ( [facility]) Inhaled oxygen 99 % 99 % MEDGEN ([facility], ) Body mass index 24.5 kg/m2 24.5 kg/m2 MEDGEN (S t (BMI) [Ratio] [facility], ) Diastolic blood 70 mm[Hg] 70 mm[Hg] MEDGEN (S t pressure [facility]) Systolic blood 102 mm[Hg] 102 mm[Hg] MEDGEN ([facility]) Body weight 152 lb 152 lb MEDGEN ([facility]) Body height 66 in 66 in MEDGEN ([facility]) Heart rate 72 /min 72 /min MEDGEN ([facility]) Respiratory rate 14 /min 14 /min MEDGEN ( [facility]) Inhaled oxygen 99 % 99 % MEDGEN ([facility], ) Body mass index 24.5 kg/m2 24.5 kg/m2 MEDGEN (S t (BMI) [Ratio] [facility], ) Diastolic blood 70 mm[Hg] 70 mm[Hg] MEDGEN (S t pressure [facility]) Systolic blood 102 mm[Hg] 102 mm[Hg] MEDGEN ([facility]) Body weight 152 lb 152 lb MEDGEN ([facility]) Body height 66 in 66 in MEDGEN ([facility]) Heart rate 72 /min 72 /min MEDGEN ([facility]) Respiratory rate 14 /min 14 /min MEDGEN ( [facility]) Inhaled oxygen 99 % 99 % MEDGEN ([facility], ) Body mass index 24.5 kg/m2 24.5 kg/m2 MEDGEN (S t (BMI) [Ratio] [facility], ) Diastolic blood 70 mm[Hg] 70 mm[Hg] MEDGEN (S t pressure [facility] , ) Systolic blood 102 mm[Hg] 102 mm[Hg] MEDGEN ([facility]) Body weight 152 lb 152 lb MEDGEN ([facility]) Body height 66 in 66 in MEDGEN ([facility]) Heart rate 72 /min 72 /min MEDGEN ([facility]) Respiratory rate 14 /min 14 /min MEDGEN ( [facility]) Inhaled oxygen 99 % 99 % MEDGEN ([facility], ) Body mass index 24.5 kg/m2 24.5 kg/m2 MEDGEN (S t (BMI) [Ratio] [facility], ) Diastolic blood 70 mm[Hg] 70 mm[Hg] MEDGEN (S t pressure [facility]) Systolic blood 102 mm[Hg] 102 mm[Hg] MEDGEN ([facility]) Body weight 152 lb 152 lb MEDGEN ([facility]) Body height 66 in 66 in MEDGEN ([facility]) Heart rate 72 /min 72 /min MEDGEN ([facility]) Respiratory rate 14 /min 14 /min MEDGEN ( [facility]) Inhaled oxygen 99 % 99 % MEDGEN ([facility], ) Body mass index 24.5 kg/m2 24.5 kg/m2 MEDGEN (S t (BMI) [Ratio] [facility], ) Diastolic blood 70 mm[Hg] 70 mm[Hg] MEDGEN (S t pressure [facility] , ) Systolic blood 102 mm[Hg] 102 mm[Hg] MEDGEN ([facility]) Body weight 152 lb 152 lb MEDGEN ([facility]) Body height 66 in 66 in MEDGEN ([facility]) Heart rate 72 /min 72 /min MEDGEN ([facility]) Respiratory rate 14 /min 14 /min MEDGEN ( [facility]) Inhaled oxygen 99 % 99 % MEDGEN ([facility], ) Body mass index 24.5 kg/m2 24.5 kg/m2 MEDGEN (S t (BMI) [Ratio] [facility], ) Diastolic blood 70 mm[Hg] 70 mm[Hg] MEDGEN (S t pressure [facility] , ) Systolic blood 102 mm[Hg] 102 mm[Hg] MEDGEN ([facility]) Body weight 152 lb 152 lb MEDGEN ([facility]) Body height 66 in 66 in MEDGEN ([facility]) Heart rate 72 /min 72 /min MEDGEN ([facility]) Respiratory rate 14 /min 14 /min MEDGEN ( [facility]) Inhaled oxygen 99 % 99 % MEDGEN ([facility], ) Body mass index 24.5 kg/m2 24.5 kg/m2 MEDGEN (S t (BMI) [Ratio] [facility], ) Diastolic blood 70 mm[Hg] 70 mm[Hg] MEDGEN (S t pressure [facility]) Systolic blood 102 mm[Hg] 102 mm[Hg] MEDGEN ([facility]) Body weight 152 lb 152 lb MEDGEN ([facility]) Body height 66 in 66 in MEDGEN ([facility]) Heart rate 72 /min 72 /min MEDGEN ([facility]) Respiratory rate 14 /min 14 /min MEDGEN ( [facility]) Inhaled oxygen 99 % 99 % MEDGEN ([facility]) Body mass index 24.5 kg/m2 24.5 kg/m2 MEDGEN (S t (BMI) [Ratio] [facility], ) Diastolic blood 70 mm[Hg] 70 mm[Hg] MEDGEN (S t pressure [facility]) Systolic blood 102 mm[Hg] 102 mm[Hg] MEDGEN ([facility]) Body weight 152 lb 152 lb MEDGEN ([facility]) Body height 66 in 66 in MEDGEN ([facility]) Heart rate 72 /min 72 /min MEDGEN ([facility]) Respiratory rate 14 /min 14 /min MEDGEN ( [facility]) Inhaled oxygen 99 % 99 % MEDGEN ([facility], ) Body mass index 24.5 kg/m2 24.5 kg/m2 MEDGEN (S t (BMI) [Ratio] [facility], ) Diastolic blood 70 mm[Hg] 70 mm[Hg] MEDGEN (S t pressure [facility]) Systolic blood 102 mm[Hg] 102 mm[Hg] MEDGEN ([facility]) Body weight 152 lb 152 lb MEDGEN ([facility]) Body height 66 in 66 in MEDGEN ([facility]) Systolic blood 102 mm[Hg] 102 mm[Hg] MEDGEN ([facility]) Body weight 152 lb 152 lb MEDGEN ([facility]) Body height 66 in 66 in MEDGEN ([facility]) Heart rate 72 /min 72 /min MEDGEN ([facility]) Respiratory rate 14 /min 14 /min MEDGEN ( [facility]) Inhaled oxygen 99 % 99 % MEDGEN ([facility]) Body mass index 24.5 kg/m2 24.5 kg/m2 MEDGEN (S t (BMI) [Ratio] [facility], ) Diastolic blood 70 mm[Hg] 70 mm[Hg] MEDGEN ([facility]) Heart rate 72 /min 72 /min MEDGEN ([facility]) Respiratory rate 14 /min 14 /min MEDGEN ( [facility]) Inhaled oxygen 99 % 99 % MEDGEN ([facility]) Body mass index 24.5 kg/m2 24.5 kg/m2 MEDGEN (S t (BMI) [Ratio] [facility], ) Diastolic blood 70 mm[Hg] 70 mm[Hg] MEDGEN ([facility]) Systolic blood 102 mm[Hg] 102 mm[Hg] MEDGEN ([facility]) Body weight 152 lb 152 lb MEDGEN ([facility]) Body height 66 in 66 in MEDGEN ([facility]) Heart rate 72 /min 72 /min MEDGEN ([facility]) Respiratory rate 14 /min 14 /min MEDGEN ( [facility]) Inhaled oxygen 99 % 99 % MEDGEN ([facility]) Body mass index 24.5 kg/m2 24.5 kg/m2 MEDGEN (S t (BMI) [Ratio] [facility]) Diastolic blood 70 mm[Hg] 70 mm[Hg] MEDGEN (S t pressure [facility] , ) Systolic blood 102 mm[Hg] 102 mm[Hg] MEDGEN ([facility] ) Body weight 152 lb 152 lb MEDGEN ([facility] , ) Body height 66 in 66 in MEDGEN ([facility]) Heart rate 72 /min 72 /min MEDGEN ([facility] , ) Respiratory rate 14 /min 14 /min MEDGEN ( [facility] , ) Inhaled oxygen 99 % 99 % MEDGEN ([facility], ) Body mass index 24.5 kg/m2 24.5 kg/m2 MEDGEN (S t (BMI) [Ratio] [facility], ) Diastolic blood 70 mm[Hg] 70 mm[Hg] MEDGEN (S t pressure [facility] , ) Systolic blood 102 mm[Hg] 102 mm[Hg] MEDGEN ([facility] , ) Body weight 152 lb 152 lb MEDGEN ([facility] , ) Body height 66 in 66 in MEDGEN ([facility] , ) Heart rate 72 /min 72 /min MEDGEN ([facility] , ) Respiratory rate 14 /min 14 /min MEDGEN ( [facility] , ) Inhaled oxygen 99 % 99 % MEDGEN ([facility], ) Body mass index 24.5 kg/m2 24.5 kg/m2 MEDGEN (S t (BMI) [Ratio] [facility], ) Diastolic blood 70 mm[Hg] 70 mm[Hg] MEDGEN (S t pressure [facility] , ) Systolic blood 102 mm[Hg] 102 mm[Hg] MEDGEN ([facility] ) Body weight 152 lb 152 lb MEDGEN ([facility] , ) Body height 66 in 66 in MEDGEN ([facility]) Heart rate 72 /min 72 /min MEDGEN ([facility] , ) Respiratory rate 14 /min 14 /min MEDGEN ( [facility] , ) Inhaled oxygen 99 % 99 % MEDGEN ([facility], ) Body mass index 24.5 kg/m2 24.5 kg/m2 MEDGEN (S t (BMI) [Ratio] [facility], ) Diastolic blood 70 mm[Hg] 70 mm[Hg] MEDGEN (S t pressure [facility]) Systolic blood 102 mm[Hg] 102 mm[Hg] MEDGEN ([facility]) Body weight 152 lb 152 lb MEDGEN ([facility]) Body height 66 in 66 in MEDGEN ([facility]) Heart rate 88 /min 88 /min MEDGEN ([facility]) Respiratory rate 14 /min 14 /min MEDGEN ( [facility]) Body temperature 98.4 F 98.4 F MEDGEN ( [facility]) Inhaled oxygen 100 % 100 % MEDGEN ([facility], ) Body mass index 24.5 kg/m2 24.5 kg/m2 MEDGEN (S t (BMI) [Ratio] [facility], ) Diastolic blood 77 mm[Hg] 77 mm[Hg] MEDGEN (S t [facility]) Systolic blood 131 mm[Hg] 131 mm[Hg] MEDGEN ([facility]) Body weight 152 lb 152 lb MEDGEN ([facility]) Body height 66 in 66 in MEDGEN ([facility]) Heart rate 88 /min 88 /min MEDGEN ([facility]) Respiratory rate 14 /min 14 /min MEDGEN ( [facility]) Body temperature 98.4 F 98.4 F MEDGEN ( [facility]) Inhaled oxygen 100 % 100 % MEDGEN ([facility], ) Body mass index 24.5 kg/m2 24.5 kg/m2 MEDGEN (S t (BMI) [Ratio] [facility], ) Diastolic blood 77 mm[Hg] 77 mm[Hg] MEDGEN (S t pressure [facility]) Systolic blood 131 mm[Hg] 131 mm[Hg] MEDGEN ([facility]) Body weight 152 lb 152 lb MEDGEN ([facility]) Body height 66 in 66 in MEDGEN ([facility]) Heart rate 88 /min 88 /min MEDGEN ([facility]) Respiratory rate 14 /min 14 /min MEDGEN ( [facility]) Body temperature 98.4 F 98.4 F MEDGEN ( [facility]) Inhaled oxygen 100 % 100 % MEDGEN ([facility]) Body mass index 24.5 kg/m2 24.5 kg/m2 MEDGEN (S t (BMI) [Ratio] [facility], ) Diastolic blood 77 mm[Hg] 77 mm[Hg] MEDGEN (S t pressure [facility]) Systolic blood 131 mm[Hg] 131 mm[Hg] MEDGEN ([facility]) Body weight 152 lb 152 lb MEDGEN ([facility]) Body height 66 in 66 in MEDGEN ([facility]) Heart rate 88 /min 88 /min MEDGEN ([facility]) Respiratory rate 14 /min 14 /min MEDGEN ( [facility]) Body temperature 98.4 F 98.4 F MEDGEN ( [facility]) Inhaled oxygen 100 % 100 % MEDGEN ([facility]) Body mass index 24.5 kg/m2 24.5 kg/m2 MEDGEN (S t (BMI) [Ratio] [facility]) Diastolic blood 77 mm[Hg] 77 mm[Hg] MEDGEN (S pressure [facility]) Systolic blood 131 mm[Hg] 131 mm[Hg] MEDGEN ([facility]) Body weight 152 lb 152 lb MEDGEN ([facility]) Body height 66 in 66 in MEDGEN ([facility]) Heart rate 88 /min 88 /min MEDGEN ([facility]) Respiratory rate 14 /min 14 /min MEDGEN ( [facility]) Body temperature 98.4 F 98.4 F MEDGEN ( [facility]) Inhaled oxygen 100 % 100 % MEDGEN ([facility]) Body mass index 24.5 kg/m2 24.5 kg/m2 MEDGEN (S t (BMI) [Ratio] [facility], ) Diastolic blood 77 mm[Hg] 77 mm[Hg] MEDGEN (S t pressure [facility] , ) Systolic blood 131 mm[Hg] 131 mm[Hg] MEDGEN ([facility]) Body weight 152 lb 152 lb MEDGEN ([facility]) Body height 66 in 66 in MEDGEN ([facility]) Heart rate 88 /min 88 /min MEDGEN ([facility]) Respiratory rate 14 /min 14 /min MEDGEN ( [facility]) Body temperature 98.4 F 98.4 F MEDGEN ( [facility]) Inhaled oxygen 100 % 100 % MEDGEN ([facility], ) Body mass index 24.5 kg/m2 24.5 kg/m2 MEDGEN (S t (BMI) [Ratio] [facility], ) Diastolic blood 77 mm[Hg] 77 mm[Hg] MEDGEN (S t pressure [facility] , ) Systolic blood 131 mm[Hg] 131 mm[Hg] MEDGEN ([facility]) Body weight 152 lb 152 lb MEDGEN ([facility]) Body height 66 in 66 in MEDGEN ([facility]) Heart rate 88 /min 88 /min MEDGEN ([facility]) Respiratory rate 14 /min 14 /min MEDGEN ( [facility] , ) Body temperature 98.4 F 98.4 F MEDGEN ( [facility]) Inhaled oxygen 100 % 100 % MEDGEN ([facility], ) Body mass index 24.5 kg/m2 24.5 kg/m2 MEDGEN (S t (BMI) [Ratio] [facility], ) Diastolic blood 77 mm[Hg] 77 mm[Hg] MEDGEN (S t pressure [facility] , ) Systolic blood 131 mm[Hg] 131 mm[Hg] MEDGEN ([facility] , ) Body weight 152 lb 152 lb MEDGEN ([facility]) Body height 66 in 66 in MEDGEN ([facility]) Heart rate 88 /min 88 /min MEDGEN ([facility]) Respiratory rate 14 /min 14 /min MEDGEN ( [facility]) Body temperature 98.4 F 98.4 F MEDGEN ( [facility]) Inhaled oxygen 100 % 100 % MEDGEN ([facility]) Body mass index 24.5 kg/m2 24.5 kg/m2 MEDGEN (S t (BMI) [Ratio] [facility]) Diastolic blood 77 mm[Hg] 77 mm[Hg] MEDGEN (S t pressure [facility]) Systolic blood 131 mm[Hg] 131 mm[Hg] MEDGEN ([facility]) Body weight 152 lb 152 lb MEDGEN ([facility]) Body height 66 in 66 in MEDGEN ([facility]) Heart rate 88 /min 88 /min MEDGEN ([facility]) Respiratory rate 14 /min 14 /min MEDGEN ( [facility]) Body temperature 98.4 F 98.4 F MEDGEN ( [facility]) Inhaled oxygen 100 % 100 % MEDGEN ([facility]) Body mass index 24.5 kg/m2 24.5 kg/m2 MEDGEN (S t (BMI) [Ratio] [facility]) Diastolic blood 77 mm[Hg] 77 mm[Hg] MEDGEN (S t [facility]) Systolic blood 131 mm[Hg] 131 mm[Hg] MEDGEN ([facility]) Body weight 152 lb 152 lb MEDGEN ([facility]) Body height 66 in 66 in MEDGEN ([facility]) Heart rate 88 /min 88 /min MEDGEN ([facility]) Respiratory rate 14 /min 14 /min MEDGEN ( [facility]) Body temperature 98.4 F 98.4 F MEDGEN ( [facility]) Inhaled oxygen 100 % 100 % MEDGEN ([facility]) Body mass index 24.5 kg/m2 24.5 kg/m2 MEDGEN (S t (BMI) [Ratio] [facility], ) Diastolic blood 77 mm[Hg] 77 mm[Hg] MEDGEN (S t [facility]) Systolic blood 131 mm[Hg] 131 mm[Hg] MEDGEN ([facility] , ) Body weight 152 lb 152 lb MEDGEN ([facility]) Body height 66 in 66 in MEDGEN ([facility]) Heart rate 88 /min 88 /min MEDGEN ([facility]) Respiratory rate 14 /min 14 /min MEDGEN ( [facility]) Body temperature 98.4 F 98.4 F MEDGEN ( [facility]) Inhaled oxygen 100 % 100 % MEDGEN ([facility], ) Body mass index 24.5 kg/m2 24.5 kg/m2 MEDGEN (S t (BMI) [Ratio] [facility], ) Diastolic blood 77 mm[Hg] 77 mm[Hg] MEDGEN (S t pressure [facility]) Systolic blood 131 mm[Hg] 131 mm[Hg] MEDGEN ([facility]) Body weight 152 lb 152 lb MEDGEN ([facility]) Body height 66 in 66 in MEDGEN ([facility]) Body height 66 in 66 in MEDGEN ([facility]) Heart rate 88 /min 88 /min MEDGEN ([facility]) Respiratory rate 14 /min 14 /min MEDGEN ( [facility]) Body temperature 98.4 F 98.4 F MEDGEN ( [facility]) Inhaled oxygen 100 % 100 % MEDGEN ([facility], ) Body mass index 24.5 kg/m2 24.5 kg/m2 MEDGEN (S t (BMI) [Ratio] [facility], ) Diastolic blood 77 mm[Hg] 77 mm[Hg] MEDGEN (S t pressure [facility]) Systolic blood 131 mm[Hg] 131 mm[Hg] MEDGEN ([facility]) Body weight 152 lb 152 lb MED[facility] ([facility]) Heart rate 88 /min 88 /min [facility] ([facility]) Respiratory rate 14 /min 14 /min [facility] ( [facility]) Body temperature 98.4 F 98.4 F MED[facility] ( [facility]) Inhaled oxygen 100 % 100 % MEDGEN ([facility], ) Body mass index 24.5 kg/m2 24.5 kg/m2 MEDGEN (S t (BMI) [Ratio] [facility], ) Diastolic blood 77 mm[Hg] 77 mm[Hg] MEDGEN (S t [facility]) Systolic blood 131 mm[Hg] 131 mm[Hg] MEDGEN ([facility]) Body weight 152 lb 152 lb [facility] ([facility]) Body height 66 in 66 in MEDGEN ([facility]) Heart rate 88 /min 88 /min MED[facility] ([facility]) Respiratory rate 14 /min 14 /min MED[facility] ( [facility]) Body temperature 98.4 F 98.4 F MED[facility] ( [facility]) Inhaled oxygen 100 % 100 % MEDGEN ([facility], ) Body mass index 24.5 kg/m2 24.5 kg/m2 MEDGEN (S t (BMI) [Ratio] [facility], ) Diastolic blood 77 mm[Hg] 77 mm[Hg] MEDGEN (S [facility]) Systolic blood 131 mm[Hg] 131 mm[Hg] MEDGEN ([facility]) Body weight 152 lb 152 lb MED[facility] ([facility]) Body height 66 in 66 in MEDGEN ([facility]) Heart rate 88 /min 88 /min MED[facility] ([facility]) Respiratory rate 14 /min 14 /min MED[facility] ( [facility]) Body temperature 98.4 F 98.4 F MED[facility] ( [facility]) Inhaled oxygen 100 % 100 % MEDGEN ([facility], ) Body mass index 24.5 kg/m2 24.5 kg/m2 MEDGEN (S t (BMI) [Ratio] [facility], ) Diastolic blood 77 mm[Hg] 77 mm[Hg] MEDGEN (S t [facility]) Systolic blood 131 mm[Hg] 131 mm[Hg] MEDGEN ([facility]) Body weight 152 lb 152 lb [facility] ([facility]) Body height 66 in 66 in [facility] ([facility]) Body mass index 21.5 kg/m2 21.5 kg/m2 MEDGEN (S t (BMI) [Ratio] [facility], ) Diastolic blood 90 mm[Hg] 90 mm[Hg] MEDGEN (S t pressure [facility]) Systolic blood 142 mm[Hg] 142 mm[Hg] MEDGEN ([facility]) Body weight 133 lb 133 lb MED[facility] ([facility]) Body height 66 in 66 in [facility] ([facility]) Body mass index 21.5 kg/m2 21.5 kg/m2 MEDGEN (S t (BMI) [Ratio] [facility], ) Diastolic blood 90 mm[Hg] 90 mm[Hg] MEDGEN (S t pressure [facility]) Systolic blood 142 mm[Hg] 142 mm[Hg] MEDGEN ([facility]) Body weight 133 lb 133 lb MED[facility] ([facility]) Body height 66 in 66 in MED[facility] ([facility]) Body mass index 21.5 kg/m2 21.5 kg/m2 MEDGEN (S t (BMI) [Ratio] [facility]) Diastolic blood 90 mm[Hg] 90 mm[Hg] MEDGEN (S [facility]) Systolic blood 142 mm[Hg] 142 mm[Hg] MEDGEN ([facility]) Body weight 133 lb 133 lb [facility] ([facility]) Body height 66 in 66 in MED[facility] ([facility]) Body mass index 21.5 kg/m2 21.5 kg/m2 MEDGEN (S t (BMI) [Ratio] [facility]) Diastolic blood 90 mm[Hg] 90 mm[Hg] MEDGEN (S pressure [facility]) Systolic blood 142 mm[Hg] 142 mm[Hg] MEDGEN ([facility]) Body weight 133 lb 133 lb MED[facility] ([facility]) Body height 66 in 66 in [facility] ([facility]) Body mass index 21.5 kg/m2 21.5 kg/m2 MEDGEN (S t (BMI) [Ratio] [facility], ) Diastolic blood 90 mm[Hg] 90 mm[Hg] MEDGEN (S t pressure [facility]) Systolic blood 142 mm[Hg] 142 mm[Hg] MED[facility] ([facility]) Body weight 133 lb 133 lb MED[facility] ([facility]) Body height 66 in 66 in [facility] ([facility]) Body mass index 21.5 kg/m2 21.5 kg/m2 MEDGEN (S t (BMI) [Ratio] [facility], ) Diastolic blood 90 mm[Hg] 90 mm[Hg] MEDGEN (S t pressure [facility]) Systolic blood 142 mm[Hg] 142 mm[Hg] MEDGEN ([facility]) Body weight 133 lb 133 lb [facility] ([facility]) Body height 66 in 66 in [facility] ([facility]) Body mass index 21.5 kg/m2 21.5 kg/m2 MEDGEN (S t (BMI) [Ratio] [facility], ) Diastolic blood 90 mm[Hg] 90 mm[Hg] MEDGEN (S t pressure [facility]) Systolic blood 142 mm[Hg] 142 mm[Hg] MEDGEN ([facility]) Body weight 133 lb 133 lb [facility] ([facility]) Body height 66 in 66 in [facility] ([facility]) Body mass index 21.5 kg/m2 21.5 kg/m2 MEDGEN (S t (BMI) [Ratio] [facility], ) Diastolic blood 90 mm[Hg] 90 mm[Hg] MEDGEN (S t pressure [facility]) Systolic blood 142 mm[Hg] 142 mm[Hg] MEDGEN ([facility]) Body weight 133 lb 133 lb [facility] ([facility]) Body height 66 in 66 in [facility] ([facility]) Body mass index 21.5 kg/m2 21.5 kg/m2 MEDGEN (S t (BMI) [Ratio] [facility], ) Diastolic blood 90 mm[Hg] 90 mm[Hg] MEDGEN (S t pressure [facility] , ) Systolic blood 142 mm[Hg] 142 mm[Hg] MEDGEN (St pressure [facility] , ) Body weight 133 lb 133 lb MEDGEN ([facility] , ) Body height 66 in 66 in [facility] ([facility]) Body mass index 21.5 kg/m2 21.5 kg/m2 MEDGEN (S t (BMI) [Ratio] [facility], ) Diastolic blood 90 mm[Hg] 90 mm[Hg] MEDGEN (S t pressure [facility] , ) Systolic blood 142 mm[Hg] 142 mm[Hg] MEDGEN (St pressure [facility] , ) Body weight 133 lb 133 lb [facility] ([facility]) Body height 66 in 66 in [facility] ([facility]) Body mass index 21.5 kg/m2 21.5 kg/m2 MEDGEN (S t (BMI) [Ratio] [facility], ) Diastolic blood 90 mm[Hg] 90 mm[Hg] MEDGEN (S t pressure [facility] , ) Systolic blood 142 mm[Hg] 142 mm[Hg] MEDGEN ([facility] , ) Body weight 133 lb 133 lb [facility] ([facility]) Body height 66 in 66 in [facility] ([facility]) Body mass index 21.5 kg/m2 21.5 kg/m2 MEDGEN (S t (BMI) [Ratio] [facility], ) Diastolic blood 90 mm[Hg] 90 mm[Hg] MEDGEN (S t pressure [facility] , ) Systolic blood 142 mm[Hg] 142 mm[Hg] MEDGEN ([facility] , ) Body weight 133 lb 133 lb [facility] ([facility]) Body height 66 in 66 in [facility] ([facility]) Body weight 133 lb 133 lb [facility] ([facility]) Body height 66 in 66 in [facility] ([facility]) Body mass index 21.5 kg/m2 21.5 kg/m2 MEDGEN (S t (BMI) [facility] Diastolic blood 90 mm[Hg] 90 mm[Hg] MEDGEN (S t pressure [facility]) Systolic blood 142 mm[Hg] 142 mm[Hg] MEDGEN ([facility]) Body mass index 21.5 kg/m2 21.5 kg/m2 MEDGEN (S t (BMI) [Ratio] [facility]) Diastolic blood 90 mm[Hg] 90 mm[Hg] MEDGEN (S t pressure [facility]) Systolic blood 142 mm[Hg] 142 mm[Hg] MEDGEN ([facility]) Body weight 133 lb 133 lb [facility] ([facility]) Body height 66 in 66 in [facility] ([facility]) Body mass index 21.5 kg/m2 21.5 kg/m2 MEDGEN (S t (BMI) [Ratio] [facility], ) Diastolic blood 90 mm[Hg] 90 mm[Hg] MEDGEN (S t pressure [facility]) Systolic blood 142 mm[Hg] 142 mm[Hg] MEDGEN ([facility]) Body weight 133 lb 133 lb [facility] ([facility]) Body height 66 in 66 in [facility] ([facility])
[2020-01-11] MEDS: FUROSEMIDE 40 MG TABLET (FP) PO SCH ×2 (06:30→13:15)
[2020-01-11] MEDS: LABETALOL HCL 200 MG TABLET (FP) PO SCH ×3 (06:30→21:16)
[2020-01-11] MEDS: INSULIN SLIDING SCALE (NOVOLOG) 1 VIAL SQ SCH ×4 (06:30→21:19)
[2020-01-11 07:16] LABS: BASO % 0.9 % (0-2.0); EOS % 4.2 % (0-4.5); HEMATOCRIT 23.3 % (35.4-49); HEMOGLOBIN 7.8 GM/dL (11.7-16.9); LYMPH % 18.1 % (8-40); MCH 27.1 pg (25.7-33.7); MCHC 33.3 g/dl (32.0-35.9); MEAN CELL VOLUME 81.3 fl (80-96); MEAN PLT VOLUME 8.2 fl (7.5-11.1); NEUT % 69.8 % (42.8-82.8); PLATELET COUNT 205 K/MM3 (134-434); RBC 2.87 M/mm3 (4.00-5.60); RDW 14.8 % (11.9-15.9); WHITE BLOOD COUNT 5.4 K/mm3 (4.0-10.0)
[2020-01-11 07:37] LABS: ALBUMIN 2.8 g/dl (3.4-5.0); BILIRUBIN,TOTAL 0.3 mg/dL (0.2-1); BLOOD UREA NITROGEN 64.8 mg/dL (7-18); CALCIUM 7.9 mg/dL (8.5-10.1); CREATININE 3.8 mg/dL (0.55-1.3); MAGNESIUM 1.8 mg/dL (1.8-2.4); PHOSPHOROUS 4.3 mg/dL (2.5-4.9); TOT PROT 5.8 g/dl (6.4-8.2)
[2020-01-11] MEDS: TAMSULOSIN HCL 0.4 MG CAP PO SCH (07:58)
[2020-01-11] MEDS: SODIUM BICARBONATE 650 MG TABLET PO SCH ×2 (07:58→17:40)
--- NOTE | 2020-01-11 09:00 | EKG ---
Test Reason : Blood Pressure : / mmHG Vent. Rate : 062 BPM Atrial Rate : 062 BPM P-R Int : 176 ms QRS Dur : 118 ms QT Int : 468 ms P-R-T Axes : 064 044 088 degrees QTc Int : 475 ms NORMAL SINUS RHYTHM POSSIBLE LEFT ATRIAL ENLARGEMENT INCOMPLETE LEFT BUNDLE BRANCH BLOCK BORDERLINE ECG WHEN COMPARED WITH ECG OF 28-NOV-2019 11:39, ST NO LONGER DEPRESSED IN LATERAL LEADS T WAVE INVERSION NO LONGER EVIDENT IN LATERAL LEADS Confirmed by Kelly Evans ([id number]) on 01/11/2020 9:00:28 AM Referred By: Confirmed By:Kelly Evans
--- NOTE | 2020-01-11 09:18 | PN ---
Teaching Attending Note Name of Resident: Katherine Thapa ATTENDING PHYSICIAN STATEMENT I saw and evaluated the patient. I reviewed the resident's note and discussed the case with the resident. I agree with the resident's findings and plan as documented. SUBJECTIVE: Patient seen and examined at bedside, admitted for weakness, lethargy, found with SENA on CKD. VSS. OBJECTIVE: GA tired appearing, legally blind, NAD HEENT NC/AT, EOMI, no JVD Chest CTAB, no crackles CVS s1, S2+, RRR Abd Soft, NT, ND, BS+ Ext no LE edema Vital Signs - 24 hr 01/10/20 01/10/20 01/10/20 12:46 13:02 17:43 Temperature 98.0 F 98.2 F Pulse Rate 61 Pulse Rate [ 69 Left Radial] Respiratory 16 Rate Blood Pressure 132/76 Blood Pressure 194/98 H [Right Arm] O2 Sat by Pulse 100 99 100 Oximetry (%) 01/10/20 01/11/20 01/11/20 20:25 02:00 06:15 Temperature 98.2 F 98.4 F Pulse Rate 71 71 Pulse Rate [ 75 Left Radial] Respiratory 15 18 18 Rate Blood Pressure 173/92 H 188/91 H Blood Pressure 115/79 [Right Arm] O2 Sat by Pulse 99 99 Oximetry (%) Laboratory Results - last 24 hr 01/10/20 01/10/20 01/10/20 13:10 13:10 13:10 WBC 5.8 RBC 3.03 L Hgb 8.4 L Hct 25.0 L MCV 82.5 MCH 27.6 MCHC 33.5 RDW 15.2 Plt Count 224 MPV 8.2 Absolute Neuts (auto) 4.7 Neutrophils % 80.2 Lymphocytes % 9.4 Monocytes % 5.8 Eosinophils % 3.9 Basophils % 0.7 Nucleated RBC % 0 PT with INR 13.80 H INR 1.17 H PTT (Actin FS) 38.3 H Sodium 141 Potassium 4.8 Chloride 112 H Carbon Dioxide 25 Anion Gap 4 L BUN 59.1 H Creatinine 3.7 H Est GFR (CKD-EPI)AfAm 20.10 Est GFR (CKD-EPI)NonAf 17.34 POC Glucometer Random Glucose 139 H Calcium 8.8 Phosphorus Magnesium Total Bilirubin 0.3 AST 21 ALT 31 Alkaline Phosphatase 106 Creatine Kinase 364 H Creatine Kinase Index 1.9 CK-MB (CK-2) 7.0 H Troponin I < 0.02 Total Protein 6.5 Albumin 3.2 L Triglycerides 97 Cholesterol 217 H Total LDL Cholesterol 86 HDL Cholesterol 116 H Blood Type Antibody Screen 01/10/20 01/10/20 01/11/20 13:10 23:34 06:24 WBC RBC Hgb Hct MCV MCH MCHC RDW Plt Count MPV Absolute Neuts (auto) Neutrophils % Lymphocytes % Monocytes % Eosinophils % Basophils % Nucleated RBC % PT with INR INR PTT (Actin FS) Sodium Potassium Chloride Carbon Dioxide Anion Gap BUN Creatinine Est GFR (CKD-EPI)AfAm Est GFR (CKD-EPI)NonAf POC Glucometer 137 143 Random Glucose Calcium Phosphorus Magnesium Total Bilirubin AST ALT Alkaline Phosphatase Creatine Kinase Creatine Kinase Index CK-MB (CK-2) Troponin I Total Protein Albumin Triglycerides Cholesterol Total LDL Cholesterol HDL Cholesterol Blood Type A POSITIVE Antibody Screen Negative 01/11/20 01/11/20 06:50 06:50 WBC 5.4 RBC 2.87 L Hgb 7.8 L Hct 23.3 L MCV 81.3 MCH 27.1 MCHC 33.3 RDW 14.8 Plt Count 205 MPV 8.2 Absolute Neuts (auto) 3.8 Neutrophils % 69.8 Lymphocytes % 18.1 D Monocytes % 7.0 Eosinophils % 4.2 Basophils % 0.9 Nucleated RBC % 0 PT with INR INR PTT (Actin FS) Sodium 143 Potassium 4.0 Chloride 112 H Carbon Dioxide 26 Anion Gap 5 L BUN 64.8 H Creatinine 3.8 H Est GFR (CKD-EPI)AfAm 19.46 Est GFR (CKD-EPI)NonAf 16.79 POC Glucometer Random Glucose 136 H Calcium 7.9 L Phosphorus 4.3 Magnesium 1.8 Total Bilirubin 0.3 AST 18 ALT 28 Alkaline Phosphatase 91 Creatine Kinase Creatine Kinase Index CK-MB (CK-2) Troponin I Total Protein 5.8 L Albumin 2.8 L Triglycerides Cholesterol Total LDL Cholesterol HDL Cholesterol Blood Type Antibody Screen Home Medications Medication Instructions Recorded Alogliptin Benzoate [Alogliptin] 6.25 mg PO DAILY 12/02/19 Aspirin [ASA -] 81 mg PO DAILY 12/02/19 Atorvastatin Ca [Lipitor] 80 mg PO HS 12/02/19 Clopidogrel Bisulfate [Plavix] 75 mg PO DAILY 12/02/19 Ergocalciferol (Vitamin D2) 50,000 unit PO WE 12/02/19 [Vitamin D2] Furosemide [Lasix -] 80 mg PO BID@0600,1400 #120 tablet 12/02/19 Gabapentin 200 mg PO BID 12/02/19 Labetalol HCl [Normodyne -] 400 mg PO TID #120 tablet 12/02/19 Sodium Bicarbonate - 1,300 mg PO BID 12/02/19 Tamsulosin HCl [Flomax] 0.4 mg PO DAILY 12/02/19 Amlodipine Besylate [Norvasc -] 5 mg PO DAILY 01/10/20 Clonidine Patch [Catapres Tts 0.3 mg TD WE 01/10/20 Patch -] Ergocalciferol (Vitamin D2) 50,000 unit PO WE 01/10/20 [Vitamin D2] Spironolactone 25 mg PO DAILY 01/10/20 Current Medications Generic Name Dose Route Start Last Admin Trade Name Freq PRN Reason Stop Dose Admin Amlodipine Besylate 5 mg 01/11/20 10:00 Norvasc - PO DAILY [facility] Aspirin 81 mg 01/11/20 10:00 Asa - PO DAILY [facility] Atorvastatin Calcium 80 mg 01/10/20 22:00 01/10/20 23:35 Lipitor - PO 80 mg HS [facility] Administration Clonidine HCl 0.3 mg 01/15/20 10:00 Catapres Tts Patch - TD WE [facility] Clopidogrel Bisulfate 75 mg 01/11/20 10:00 Plavix - PO DAILY [facility] Ergocalciferol 50,000 unit 01/15/20 10:00 Drisdol - PO WE [facility] Furosemide 80 mg 01/11/20 06:00 01/11/20 06:30 Lasix - PO 80 mg BID@0600,1400 [facility] Administration Gabapentin 200 mg 01/10/20 22:00 01/10/20 23:36 Neurontin - PO 200 mg BID [facility] Administration Heparin Sodium (Porcine) 5,000 unit 01/10/20 18:00 01/11/20 02:07 Heparin - SQ Not Given Q8H-IV [facility] Insulin Aspart 1 vial 01/10/20 16:30 01/11/20 06:30 Novolog Vial Sliding Scale - SQ Not Given ACHS [facility] Protocol Labetalol HCl 400 mg 01/10/20 22:00 01/11/20 06:30 Normodyne - PO 400 mg TID [facility] Administration Sodium Bicarbonate 1,300 mg 01/10/20 17:30 01/11/20 07:58 Sodium Bicarbonate - PO 1,300 mg BIDWM [facility] Administration Tamsulosin HCl 0.4 mg 01/11/20 08:30 01/11/20 07:58 Flomax - PO 0.4 mg DAILY@0830 [facility] Administration ASSESSMENT AND PLAN: 55 M Near syncopal episode Uncontrolled HTN SENA on CKD HLD CVA/TIA w/ residual weakness (generalized) T2DM BPH Legally blind HTN urgency r/o arrythmia Plan: Obtain Echo/carotids, continue tele monitoring Obtain orthostatics, ?suspected overuse of diuretics and dehydration Patient appears clinically dry, hold diuretics x1 dose, restart at half normal dose SENA likely pre-renal, gentle hydration and repeat chem Renal evaluation Neurology evaluation for new infarct seen on CT head (chronic) DVT ppx: Heparin SC
[2020-01-11] MEDS: GABAPENTIN 100 MG CAPSULE PO SCH ×2 (09:26→21:16)
[2020-01-11] MEDS: amLODIPine BESYLATE 5 MG TABLET (FP) PO SCH (09:26)
[2020-01-11] MEDS: ASPIRIN 81 MG CHEWABLE TABLETS PO SCH (09:26)
[2020-01-11] MEDS: CLOPIDOGREL BISULFATE 75 MG TABLET (FP) PO SCH (09:26)
--- NOTE | 2020-01-11 16:44 | CON.NEP ---
Consult Consult Specialty:: Nephrology Referred by:: michael webber Reason for Consultation:: dm and kidney failure - Past Medical History [employer]: Yes: CVA Cardio/Vascular: Yes: HTN, Hyperlipdemia Endocrine: Yes: Diabetes Mellitus Additional Medical History: perirectal abscess 06/2017 - Alcohol/Substance Use Hx Alcohol Use: No - Smoking History Smoking history: Current every day smoker Have you smoked in the past 12 months: Yes Aproximately how many cigarettes per day: 4 - Social History Usual Living Arrangement: With Spouse ADL: Independent History of Recent Travel: No Home Medications - Allergies Allergies/Adverse Reactions: Allergies Allergy/AdvReac Type Severity Reaction Status Date / Time No Known Allergies Allergy Verified 11/28/19 10:39 - Home Medications Home Medications: Ambulatory Orders Alogliptin Benzoate [Alogliptin] 6.25 mg PO DAILY 12/02/19 Aspirin [ASA -] 81 mg PO DAILY 12/02/19 Atorvastatin Ca [Lipitor] 80 mg PO HS 12/02/19 Clopidogrel Bisulfate [Plavix] 75 mg PO DAILY 12/02/19 Ergocalciferol (Vitamin D2) [Vitamin D2] 50,000 unit PO WE 12/02/19 Furosemide [Lasix -] 80 mg PO BID@0600,1400 #120 tablet 12/02/19 Gabapentin 200 mg PO BID 12/02/19 Labetalol HCl [Normodyne -] 400 mg PO TID #120 tablet 12/02/19 Sodium Bicarbonate - 1,300 mg PO BID 12/02/19 Tamsulosin HCl [Flomax] 0.4 mg PO DAILY 12/02/19 Amlodipine Besylate [Norvasc -] 5 mg PO DAILY 01/10/20 Clonidine Patch [Catapres Tts Patch -] 0.3 mg TD WE 01/10/20 Ergocalciferol (Vitamin D2) [Vitamin D2] 50,000 unit PO WE 01/10/20 Spironolactone 25 mg PO DAILY 01/10/20 Nephrology Consult - Height Height: 5 ft 6 in - Weight Weight: 135 lb - BMI Body Mass Index (BMI): 21.7 - Lab Results CBC,BMP: CBC, BMP 01/11/20 06:50 01/11/20 06:50 Anion Gap: Anion Gap Anion Gap 5 MMOL/L (8-16) L 01/11/20 06:50 - Physical Examination Vital Signs: Vital Signs Temperature 98 F 01/11/20 13:31 Pulse Rate 64 01/11/20 15:26 Respiratory Rate 18 01/11/20 13:31 Blood Pressure 177/85 H 01/11/20 15:26 O2 Sat by Pulse Oximetry (%) 100 01/11/20 16:00 Assessment/Plan dm multiple end organ damage ( retinopathy) HTN Azotemia/ckd
[2020-01-11] MEDS: ATORVASTATIN CA 80 MG TABLET (FP) PO SCH (21:15)
[2020-01-12] MEDS: HEPARIN NA (PORCINE) 5,000 UNITS/ML 1ML VIAL SQ SCH ×3 (02:05→17:30)
[2020-01-12] MEDS: LABETALOL HCL 200 MG TABLET (FP) PO SCH ×3 (06:44→21:30)
[2020-01-12] MEDS: FUROSEMIDE 40 MG TABLET (FP) PO SCH (06:44)
[2020-01-12] MEDS: INSULIN SLIDING SCALE (NOVOLOG) 1 VIAL SQ SCH ×4 (06:44→21:31)
[2020-01-12] MEDS: TAMSULOSIN HCL 0.4 MG CAP PO SCH (08:00)
[2020-01-12] MEDS: SODIUM BICARBONATE 650 MG TABLET PO SCH ×2 (08:00→17:29)
[2020-01-12 09:34] LABS: BASO % 0.9 % (0-2.0); HEMATOCRIT 24.2 % (35.4-49); LYMPH % 11.5 % (8-40); MCH 27.3 pg (25.7-33.7); MCHC 33.2 g/dl (32.0-35.9); MEAN CELL VOLUME 82.3 fl (80-96); MEAN PLT VOLUME 8.2 fl (7.5-11.1); NEUT % 77.6 % (42.8-82.8); PLATELET COUNT 202 K/MM3 (134-434); RBC 2.94 M/mm3 (4.00-5.60); RDW 14.8 % (11.9-15.9); WHITE BLOOD COUNT 4.7 K/mm3 (4.0-10.0)
[2020-01-12] MEDS: CLOPIDOGREL BISULFATE 75 MG TABLET (FP) PO SCH (09:55)
[2020-01-12] MEDS: ASPIRIN 81 MG CHEWABLE TABLETS PO SCH (09:55)
[2020-01-12] MEDS: amLODIPine BESYLATE 5 MG TABLET (FP) PO SCH (09:55)
[2020-01-12] MEDS: GABAPENTIN 100 MG CAPSULE PO SCH ×2 (09:55→21:30)
[2020-01-12 10:00] LABS: ALBUMIN 2.8 g/dl (3.4-5.0); BILIRUBIN,TOTAL 0.3 mg/dL (0.2-1); BLOOD UREA NITROGEN 64.3 mg/dL (7-18); CREATININE 3.8 mg/dL (0.55-1.3); POTASSIUM 4.8 mmol/L (3.5-5.1); TOT PROT 5.8 g/dl (6.4-8.2)
--- NOTE | 2020-01-12 12:14 | PN ---
Teaching Attending Note Name of Resident: Esperanza Saldana ATTENDING PHYSICIAN STATEMENT I saw and evaluated the patient. I reviewed the resident's note and discussed the case with the resident. I agree with the resident's findings and plan as documented. SUBJECTIVE: pt seen and examined OBJECTIVE: Last Vital Signs Temp Pulse Resp BP Pulse Ox 98.1 F 62 18 130/76 100 01/12/20 09:53 01/12/20 09:53 01/12/20 09:53 01/12/20 09:53 01/12/20 09:53 GENERAL: Awake, alert, and fully oriented, in no acute distress. HEAD: Normal with no signs of trauma. EYES: Pupils equal, round and reactive to light, sclera anicteric, conjunctiva clear. LUNGS: Breath sounds equal, clear to auscultation bilaterally. No wheezes, and no crackles. No accessory muscle use. HEART: Regular rate and rhythm, normal S1 and S2 ABDOMEN: Soft, nontender, not distended MUSCULOSKELETAL: Normal range of motion at all joints. No bony deformities or tenderness. No CVA tenderness. UPPER EXTREMITIES: 2+ pulses, warm, well-perfused. No cyanosis. No clubbing. No peripheral edema. LOWER EXTREMITIES: 2+ pulses, warm, well-perfused. No calf tenderness. No peripheral edema. NEUROLOGICAL: Cranial nerves II-XII intact. Normal speech. CBCD WBC 4.7 K/mm3 (4.0-10.0) 01/12/20 09:08 RBC 2.94 M/mm3 (4.00-5.60) L 01/12/20 09:08 Hgb 8.0 GM/dL (11.7-16.9) L 01/12/20 09:08 Hct 24.2 % (35.4-49) L 01/12/20 09:08 MCV 82.3 fl (80-96) 01/12/20 09:08 MCHC 33.2 g/dl (32.0-35.9) 01/12/20 09:08 RDW 14.8 % (11.9-15.9) 01/12/20 09:08 Plt Count 202 K/MM3 (134-434) 01/12/20 09:08 MPV 8.2 fl (7.5-11.1) 01/12/20 09:08 CMP Sodium 141 mmol/L (136-145) 01/12/20 09:08 Potassium 4.8 mmol/L (3.5-5.1) 01/12/20 09:08 Chloride 110 mmol/L (98-107) H 01/12/20 09:08 Carbon Dioxide 27 mmol/L (21-32) 01/12/20 09:08 Anion Gap 4 MMOL/L (8-16) L 01/12/20 09:08 BUN 64.3 mg/dL (7-18) H 01/12/20 09:08 Creatinine 3.8 mg/dL (0.55-1.3) H 01/12/20 09:08 Calcium 8.0 mg/dL (8.5-10.1) L 01/12/20 09:08 Total Bilirubin 0.3 mg/dL (0.2-1) 01/12/20 09:08 AST 17 U/L (15-37) 01/12/20 09:08 ALT 34 U/L (13-61) 01/12/20 09:08 Alkaline Phosphatase 96 U/L (45-117) 01/12/20 09:08 Total Protein 5.8 g/dl (6.4-8.2) L 01/12/20 09:08 Albumin 2.8 g/dl (3.4-5.0) L 01/12/20 09:08 ASSESSMENT AND PLAN: 55 y/o man with 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, HTN, HLD, CHF (EF 50- 55% 11/2019), T2DM, CKD, and legal blindness who presents with dizziness and pre-syncope # Presyncope, dizziness overdiuresis? ct head and ct neck no acute distress MRI reviewed neurologist consult appreciated hold off furosemide stable VSS can d/c tele # SENA on CKD today 3.8 hold off furosemide IV hydration trend electrolytes, avoid nephrotoxins, renal dose of medications urine electrolytes, FeNa, microalbumin, UA Nephrology consult appreciated DM nephropathy DM retinopathy, on antiVEGF DM HTN (restart home meds, hold off furosemide) HFpEF DVT prophylaxis
--- NOTE | 2020-01-12 12:35 | PN ---
Physical Exam: SUBJECTIVE: Patient seen and examined. Improved weakness/dizziness. Denies any fever/chills, SOB, CP, dysuria. OBJECTIVE: Vital Signs Period Temp Pulse Resp BP Sys/Hanson Pulse Ox Last 24 Hr 97.8 F-98.6 F 62-72 18-20 130-185/76-91 96-100 GENERAL: The patient is awake, alert, and fully oriented, in no acute distress. HEAD: Normal with no signs of trauma. EYES: PERRL, extraocular movements intact, sclera anicteric, conjunctiva clear. No ptosis. ENT: Ears normal, nares patent, oropharynx clear without exudates, moist mucous membranes. NECK: Trachea midline, full range of motion, supple. LUNGS: Breath sounds equal, clear to auscultation bilaterally, no wheezes, no crackles, no accessory muscle use. HEART: Regular rate and rhythm, S1, S2 without murmur, rub or gallop. ABDOMEN: Soft, nontender, nondistended, normoactive bowel sounds, no guarding, no rebound, no hepatosplenomegaly, no masses. EXTREMITIES: 2+ pulses, warm, well-perfused, no edema. NEUROLOGICAL: Cranial nerves II through XII grossly intact. Normal speech, gait not observed. PSYCH: Normal mood, normal affect. SKIN: Warm, dry, normal turgor, no rashes or lesions noted Laboratory Results - last 24 hr 01/11/20 01/11/20 01/12/20 16:40 21:17 06:43 WBC RBC Hgb Hct MCV MCH MCHC RDW Plt Count MPV Absolute Neuts (auto) Neutrophils % Lymphocytes % Monocytes % Eosinophils % Basophils % Nucleated RBC % Sodium Potassium Chloride Carbon Dioxide Anion Gap BUN Creatinine Est GFR (CKD-EPI)AfAm Est GFR (CKD-EPI)NonAf POC Glucometer 134 311 238 Random Glucose Calcium Total Bilirubin AST ALT Alkaline Phosphatase Total Protein Albumin 01/12/20 01/12/20 01/12/20 09:08 09:08 11:27 WBC 4.7 RBC 2.94 L Hgb 8.0 L Hct 24.2 L MCV 82.3 MCH 27.3 MCHC 33.2 RDW 14.8 Plt Count 202 MPV 8.2 Absolute Neuts (auto) 3.7 Neutrophils % 77.6 Lymphocytes % 11.5 D Monocytes % 6.0 Eosinophils % 4.0 Basophils % 0.9 Nucleated RBC % 0 Sodium 141 Potassium 4.8 Chloride 110 H Carbon Dioxide 27 Anion Gap 4 L BUN 64.3 H Creatinine 3.8 H Est GFR (CKD-EPI)AfAm 19.46 Est GFR (CKD-EPI)NonAf 16.79 POC Glucometer 190 Random Glucose 245 H Calcium 8.0 L Total Bilirubin 0.3 AST 17 ALT 34 Alkaline Phosphatase 96 Total Protein 5.8 L Albumin 2.8 L Active Medications Generic Name Dose Route Start Last Admin Trade Name Freq PRN Reason Stop Dose Admin Amlodipine Besylate 5 mg 01/11/20 10:00 01/12/20 09:55 Norvasc - PO 5 mg DAILY [facility] Administration Aspirin 81 mg 01/11/20 10:00 01/12/20 09:55 Asa - PO 81 mg DAILY [facility] Administration Atorvastatin Calcium 80 mg 01/10/20 22:00 01/11/20 21:15 Lipitor - PO 80 mg HS [facility] Administration Clonidine HCl 0.3 mg 01/15/20 10:00 Catapres Tts Patch - TD WE [facility] Clopidogrel Bisulfate 75 mg 01/11/20 10:00 01/12/20 09:55 Plavix - PO 75 mg DAILY [facility] Administration Ergocalciferol 50,000 unit 01/15/20 10:00 Drisdol - PO WE [facility] Gabapentin 200 mg 01/10/20 22:00 01/12/20 09:55 Neurontin - PO 200 mg BID [facility] Administration Heparin Sodium (Porcine) 5,000 unit 01/10/20 18:00 01/12/20 09:55 Heparin - SQ 5,000 unit Q8H-IV [facility] Administration Insulin Aspart 1 vial 01/10/20 16:30 01/12/20 11:29 Novolog Vial Sliding Scale - SQ 2 unit ACHS [facility] Administration Protocol Labetalol HCl 400 mg 01/10/20 22:00 01/12/20 06:44 Normodyne - PO 400 mg TID [facility] Administration Sodium Bicarbonate 1,300 mg 01/10/20 17:30 01/12/20 08:00 Sodium Bicarbonate - PO 1,300 mg BIDWM [facility] Administration Tamsulosin HCl 0.4 mg 01/11/20 08:30 01/12/20 08:00 Flomax - PO 0.4 mg DAILY@0830 [facility] Administration ASSESSMENT/PLAN: Pt is a 55 year old male with PMHx of 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, HTN, HLD, CHF (Echo in 11/2019 with EF 50-55%), T2DM, CKD, BPH and legal blin dness presenting with dizziness and pre-syncope admitted for CVA rule out and SENA on CKD. #Pre-syncope, dizziness -Hx of CVA/TIA in past with L sided residual deficits -CT head and neck no acute -MRI with chronic changes, no ischemia or mass -Carotid ultrasound with mild atherosclerosis -Neuro consult appreciated #SENA on CKD -Cr 3.8 -Held Lasix, started on -Continue home PO bicarb -Ordered urine electrolytes, urine microalbumin -Consulted nephro #HTN -Overnight 188/91 -on home Lasix and labetalol -Held home Lasix for SENA, resumed home Norvasc #Hx of HLD -continue home lipitor, ASA, plavix #Hx of CHF -held Lasix due to SENA #Hx of T2DM -held home DM meds -SSI and BGM -A1c ordered -retinopathy/nephropathy #Hx of BPH -cont Flomax PPx Heparin 5000u TID FEN -NS 62.5 cc/hr -Monitor electrolytes -Diabetic diet Dispo: Transfer to med-surg. Held lasix and started IVF for SENA. Resumed more home HTN meds. Monitor BP. Visit type - Emergency Visit Emergency Visit: Yes ED Registration Date: 01/10/20 Care time: The patient presented to the Emergency Department on the above date and was hospitalized for further evaluation of their emergent condition. - New Patient This patient is new to me today: No - Critical Care Critical Care patient: No ATTENDING PHYSICIAN STATEMENT I saw and evaluated the patient. I reviewed the resident's note and discussed the case with the resident. I agree with the resident's findings and plan as documented. SUBJECTIVE: OBJECTIVE: ASSESSMENT AND PLAN:
[2020-01-12] MEDS: SODIUM CHLORIDE 1,000 ML IV SCH (13:58)
[2020-01-12 14:04] LABS: EPI CELLS 4 /uL (0-25.1); HYALINE CASTS 1 /uL (0-3.1); URINE APPEARANCE CLEAR; URINE BACTERIA 7 /uL (0-1359); URINE BILIRUBIN NEGATIVE (NEGATIVE); URINE COLOR YELLOW; URINE GLUCOSE (UA) TRACE (NEGATIVE); URINE KETONE NEGATIVE (NEGATIVE); URINE LEUK ESTERASE NEGATIVE (NEGATIVE); URINE NITRITE NEGATIVE (NEGATIVE); URINE PROTEIN 3+ (NEGATIVE); URINE RBC 13 /uL (0-23.9); URINE UROBILINOGEN 0.2 mg/dL (0.2-1.0); URINE WBC 3 /uL (0-25.8)
--- NOTE | 2020-01-12 19:16 | PN ---
Progress Note (short form) - Note Progress Note: dm multiple end organ damage ( retinopathy) HTN Azotemia/ckd Active Medications Amlodipine Besylate (Norvasc -) 5 mg PO DAILY [facility] Last Admin: 01/12/20 09:55 Dose: 5 mg Documented by: Aspirin (Asa -) 81 mg PO DAILY [facility] Last Admin: 01/12/20 09:55 Dose: 81 mg Documented by: Atorvastatin Calcium (Lipitor -) 80 mg PO HS [facility] Last Admin: 01/11/20 21:15 Dose: 80 mg Documented by: Clopidogrel Bisulfate (Plavix -) 75 mg PO DAILY [facility] Last Admin: 01/12/20 09:55 Dose: 75 mg Documented by: Ergocalciferol (Drisdol -) 50,000 unit PO WE [facility] Gabapentin (Neurontin -) 200 mg PO BID [facility] Last Admin: 01/12/20 09:55 Dose: 200 mg Documented by: Heparin Sodium (Porcine) (Heparin -) 5,000 unit SQ Q8H-IV [facility] Last Admin: 01/12/20 17:30 Dose: Not Given Documented by: Sodium Chloride (Normal Saline -) 1,000 mls @ 62.5 mls/hr IV ASDIR [facility] Last Admin: 01/12/20 13:58 Dose: 62.5 mls/hr Documented by: Insulin Aspart (Novolog Vial Sliding Scale -) 1 vial SQ ACHS [facility]; Protocol Last Admin: 01/12/20 17:30 Dose: Not Given Documented by: Labetalol HCl (Normodyne -) 400 mg PO TID [facility] Last Admin: 01/12/20 13:58 Dose: 400 mg Documented by: Sodium Bicarbonate (Sodium Bicarbonate -) 1,300 mg PO BIDWM [facility] Last Admin: 01/12/20 17:29 Dose: 1,300 mg Documented by: Tamsulosin HCl (Flomax -) 0.4 mg PO DAILY@0830 [facility] Last Admin: 01/12/20 08:00 Dose: 0.4 mg Documented by: Last Vital Signs Temp Pulse Resp BP Pulse Ox 98.4 F 70 18 173/88 H 97 01/12/20 18:00 01/12/20 18:00 01/12/20 18:00 01/12/20 18:00 01/12/20 18:00 CBC, BMP 01/12/20 09:08 01/12/20 09:08 IMP- CKD prob DM nephropathy Plan- basic serology ordered
[2020-01-12] MEDS: ATORVASTATIN CA 80 MG TABLET (FP) PO SCH (21:29)
[2020-01-13] MEDS: HEPARIN NA (PORCINE) 5,000 UNITS/ML 1ML VIAL SQ SCH ×3 (01:30→17:51)
[2020-01-13] MEDS: LABETALOL HCL 200 MG TABLET (FP) PO SCH ×3 (06:09→21:49)
[2020-01-13] MEDS: SODIUM CHLORIDE 1,000 ML IV SCH (06:09)
[2020-01-13] MEDS: INSULIN SLIDING SCALE (NOVOLOG) 1 VIAL SQ SCH ×4 (06:15→21:52)
[2020-01-13 08:13] LABS: HEMATOCRIT 24.2 % (35.4-49); HEMOGLOBIN 8.2 GM/dL (11.7-16.9); MCH 27.6 pg (25.7-33.7); MCHC 33.7 g/dl (32.0-35.9); MEAN CELL VOLUME 81.7 fl (80-96); MEAN PLT VOLUME 8.5 fl (7.5-11.1); PLATELET COUNT 199 K/MM3 (134-434); RBC 2.96 M/mm3 (4.00-5.60); RDW 14.5 % (11.9-15.9); WHITE BLOOD COUNT 5.5 K/mm3 (4.0-10.0)
[2020-01-13] MEDS: TAMSULOSIN HCL 0.4 MG CAP PO SCH (08:23)
[2020-01-13] MEDS: SODIUM BICARBONATE 650 MG TABLET PO SCH ×2 (08:23→16:48)
[2020-01-13 09:02] LABS: BLOOD UREA NITROGEN 57.8 mg/dL (7-18); CALCIUM 8.1 mg/dL (8.5-10.1); CREATININE 3.4 mg/dL (0.55-1.3); PHOSPHOROUS 4.2 mg/dL (2.5-4.9); POTASSIUM 4.6 mmol/L (3.5-5.1)
[2020-01-13] MEDS ORDERED: PT OWN MED DRAWER 7, Y5N ONE ×3 (09:53→17:41)
[2020-01-13] MEDS: amLODIPine BESYLATE 5 MG TABLET (FP) PO SCH (09:54)
[2020-01-13] MEDS: CLOPIDOGREL BISULFATE 75 MG TABLET (FP) PO SCH (09:54)
[2020-01-13] MEDS: ASPIRIN 81 MG CHEWABLE TABLETS PO SCH (09:55)
[2020-01-13] MEDS: GABAPENTIN 100 MG CAPSULE PO SCH ×2 (09:55→21:47)
[2020-01-13] MEDS ORDERED: cloNIDine-TTS 0.3 MG /24 HRS PATCH.TDWK TD SCH ×2 (10:00→14:59)
--- NOTE | 2020-01-13 12:44 | PN ---
Progress Note, Physician History of Present Illness: Pt seen and examined at bedside. He is awake and alert. He denies shortness of breath. - Current Medication List Current Medications: Active Medications Amlodipine Besylate (Norvasc -) 5 mg PO DAILY [facility] Last Admin: 01/13/20 09:54 Dose: 5 mg Documented by: Aspirin (Asa -) 81 mg PO DAILY [facility] Last Admin: 01/13/20 09:55 Dose: 81 mg Documented by: Atorvastatin Calcium (Lipitor -) 80 mg PO HS [facility] Last Admin: 01/12/20 21:29 Dose: 80 mg Documented by: Clopidogrel Bisulfate (Plavix -) 75 mg PO DAILY [facility] Last Admin: 01/13/20 09:54 Dose: 75 mg Documented by: Ergocalciferol (Drisdol -) 50,000 unit PO WE [facility] Gabapentin (Neurontin -) 200 mg PO BID [facility] Last Admin: 01/13/20 09:55 Dose: 200 mg Documented by: Heparin Sodium (Porcine) (Heparin -) 5,000 unit SQ Q8H-IV [facility] Last Admin: 01/13/20 09:55 Dose: 5,000 unit Documented by: Sodium Chloride (Normal Saline -) 1,000 mls @ 62.5 mls/hr IV ASDIR [facility] Last Admin: 01/13/20 06:09 Dose: 62.5 mls/hr Documented by: Insulin Aspart (Novolog Vial Sliding Scale -) 1 vial SQ ACHS [facility]; Protocol Last Admin: 01/13/20 11:52 Dose: 4 unit Documented by: Labetalol HCl (Normodyne -) 400 mg PO TID [facility] Last Admin: 01/13/20 06:09 Dose: 400 mg Documented by: Sodium Bicarbonate (Sodium Bicarbonate -) 1,300 mg PO BIDWM [facility] Last Admin: 01/13/20 08:23 Dose: 1,300 mg Documented by: Tamsulosin HCl (Flomax -) 0.4 mg PO DAILY@0830 [facility] Last Admin: 01/13/20 08:23 Dose: 0.4 mg Documented by: - Objective Vital Signs: Vital Signs Temperature 98.2 F 01/13/20 09:15 Pulse Rate 64 01/13/20 09:15 Respiratory Rate 18 01/13/20 09:15 Blood Pressure 149/88 01/13/20 09:15 O2 Sat by Pulse Oximetry (%) 96 01/13/20 09:15 Constitutional: Yes: Calm Eyes: Yes: Conjunctiva Clear HENT: Yes: Atraumatic Cardiovascular: Yes: S1, S2 Respiratory: Yes: CTA Bilaterally Gastrointestinal: Yes: Normal Bowel Sounds, Soft Genitourinary: Yes: WNL Edema: No Neurological: Yes: Oriented Psychiatric: Yes: Oriented Labs: CBC, BMP 01/13/20 06:15 01/13/20 06:15 INR, PTT INR 1.17 (0.83-1.09) H 01/10/20 13:10 Assessment/Plan Current Medications Generic Name Dose Route Start Last Admin Trade Name Freq PRN Reason Stop Dose Admin Amlodipine Besylate 5 mg 01/11/20 10:00 01/13/20 09:54 Norvasc - PO 5 mg DAILY [facility] Administration Aspirin 81 mg 01/11/20 10:00 01/13/20 09:55 Asa - PO 81 mg DAILY [facility] Administration Atorvastatin Calcium 80 mg 01/10/20 22:00 01/12/20 21:29 Lipitor - PO 80 mg HS [facility] Administration Clopidogrel Bisulfate 75 mg 01/11/20 10:00 01/13/20 09:54 Plavix - PO 75 mg DAILY [facility] Administration Ergocalciferol 50,000 unit 01/15/20 10:00 Drisdol - PO WE [facility] Gabapentin 200 mg 01/10/20 22:00 01/13/20 09:55 Neurontin - PO 200 mg BID [facility] Administration Heparin Sodium (Porcine) 5,000 unit 01/10/20 18:00 01/13/20 09:55 Heparin - SQ 5,000 unit Q8H-IV [facility] Administration Sodium Chloride 1,000 mls @ 62.5 mls/hr 01/12/20 12:45 01/13/20 06:09 Normal Saline - IV 62.5 mls/hr ASDIR [facility] Administration Insulin Aspart 1 vial 01/10/20 16:30 01/13/20 11:52 Novolog Vial Sliding Scale - SQ 4 unit ACHS [facility] Administration Protocol Labetalol HCl 400 mg 01/10/20 22:00 01/13/20 06:09 Normodyne - PO 400 mg TID [facility] Administration Sodium Bicarbonate 1,300 mg 01/10/20 17:30 01/13/20 08:23 Sodium Bicarbonate - PO 1,300 mg BIDWM [facility] Administration Tamsulosin HCl 0.4 mg 01/11/20 08:30 01/13/20 08:23 Flomax - PO 0.4 mg DAILY@0830 [facility] Administration Impression: SENA CKD CHF DM Hx of CVA HTN Plan - change fluids to 1/2 ns and decrease rate - repeat labs in am - lasix on hold for now - discussed with medical team - avoid nsaids - can change bicarb to 650 bid and monitor for now
--- NOTE | 2020-01-13 13:40 | PN ---
Teaching Attending Note Name of Resident: Rocael Pink ATTENDING PHYSICIAN STATEMENT I saw and evaluated the patient. I reviewed the resident's note and discussed the case with the resident. I agree with the resident's findings and plan as documented. SUBJECTIVE: pt seen and examined OBJECTIVE: Last Vital Signs Temp Pulse Resp BP Pulse Ox 98.2 F 64 18 149/88 96 01/13/20 09:15 01/13/20 09:15 01/13/20 09:15 01/13/20 09:15 01/13/20 09:15 GENERAL: Awake, alert, and fully oriented, in no acute distress. HEAD: Normal with no signs of trauma. EYES: Pupils equal, round and reactive to light, sclera anicteric, conjunctiva clear. LUNGS: Breath sounds equal, clear to auscultation bilaterally. No wheezes, and no crackles. No accessory muscle use. HEART: Regular rate and rhythm, normal S1 and S2 ABDOMEN: Soft, nontender, not distended MUSCULOSKELETAL: Normal range of motion at all joints. No bony deformities or tenderness. No CVA tenderness. UPPER EXTREMITIES: 2+ pulses, warm, well-perfused. No cyanosis. No clubbing. No peripheral edema. LOWER EXTREMITIES: 2+ pulses, warm, well-perfused. No calf tenderness. No peripheral edema. NEUROLOGICAL: Cranial nerves II-XII intact. Normal speech. CBCD WBC 5.5 K/mm3 (4.0-10.0) 01/13/20 06:15 RBC 2.96 M/mm3 (4.00-5.60) L 01/13/20 06:15 Hgb 8.2 GM/dL (11.7-16.9) L 01/13/20 06:15 Hct 24.2 % (35.4-49) L 01/13/20 06:15 MCV 81.7 fl (80-96) 01/13/20 06:15 MCHC 33.7 g/dl (32.0-35.9) 01/13/20 06:15 RDW 14.5 % (11.9-15.9) 01/13/20 06:15 Plt Count 199 K/MM3 (134-434) 01/13/20 06:15 MPV 8.5 fl (7.5-11.1) 01/13/20 06:15 CMP Sodium 143 mmol/L (136-145) 01/13/20 06:15 Potassium 4.6 mmol/L (3.5-5.1) 01/13/20 06:15 Chloride 112 mmol/L (98-107) H 01/13/20 06:15 Carbon Dioxide 25 mmol/L (21-32) 01/13/20 06:15 Anion Gap 6 MMOL/L (8-16) L 01/13/20 06:15 BUN 57.8 mg/dL (7-18) H 01/13/20 06:15 Creatinine 3.4 mg/dL (0.55-1.3) H 01/13/20 06:15 Calcium 8.1 mg/dL (8.5-10.1) L 01/13/20 06:15 Total Bilirubin 0.3 mg/dL (0.2-1) 01/12/20 09:08 AST 17 U/L (15-37) 01/12/20 09:08 ALT 34 U/L (13-61) 01/12/20 09:08 Alkaline Phosphatase 96 U/L (45-117) 01/12/20 09:08 Total Protein 5.8 g/dl (6.4-8.2) L 01/12/20 09:08 Albumin 2.8 g/dl (3.4-5.0) L 01/12/20 09:08 Active Medications Amlodipine Besylate (Norvasc -) 5 mg PO DAILY [facility] Last Admin: 01/13/20 09:54 Dose: 5 mg Documented by: Aspirin (Asa -) 81 mg PO DAILY [facility] Last Admin: 01/13/20 09:55 Dose: 81 mg Documented by: Atorvastatin Calcium (Lipitor -) 80 mg PO [facility] Last Admin: 01/12/20 21:29 Dose: 80 mg Documented by: Clopidogrel Bisulfate (Plavix -) 75 mg PO DAILY [facility] Last Admin: 01/13/20 09:54 Dose: 75 mg Documented by: Ergocalciferol (Drisdol -) 50,000 unit PO WE [facility] Gabapentin (Neurontin -) 200 mg PO BID [facility] Last Admin: 01/13/20 09:55 Dose: 200 mg Documented by: Heparin Sodium (Porcine) (Heparin -) 5,000 unit SQ Q8H-IV [facility] Last Admin: 01/13/20 09:55 Dose: 5,000 unit Documented by: Sodium Chloride (1/2 Normal Saline) 1,000 mls @ 50 mls/hr IV ASDIR [facility] Stop: 01/14/20 13:02 Insulin Aspart (Novolog Vial Sliding Scale -) 1 vial SQ ACHS [facility]; Protocol Last Admin: 01/13/20 11:52 Dose: 4 unit Documented by: Labetalol HCl (Normodyne -) 400 mg PO TID [facility] Last Admin: 01/13/20 06:09 Dose: 400 mg Documented by: Sodium Bicarbonate (Sodium Bicarbonate -) 650 mg PO BIDWM [facility] Tamsulosin HCl (Flomax -) 0.4 mg PO DAILY@0830 [facility] Last Admin: 01/13/20 08:23 Dose: 0.4 mg Documented by: ASSESSMENT AND PLAN: 55 y/o man with 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, HTN, HLD, CHF (EF 50- 55% 11/2019), T2DM, CKD, and legal blindness who presents with dizziness and pre- syncope # Presyncope, dizziness 2/[address] head and ct neck no acute distress MRI reviewed neurologist consult appreciated hold off furosemide IV hydration stable VSS d/c tele # SENA on CKD today 3.4, improving with hydration hold off furosemide IV hydration (rate adjusted per montessori lead teacher) trend electrolytes, avoid nephrotoxins, renal dose of medications urine electrolytes, FeNa, likely altered by furosemide (pt was on drug at time of test) likely pre-renal component Ptn uria mircoralbumin pending, UPEP/SPEP pending Nephrology consult appreciated DM nephropathy DM retinopathy, on antiVEGF DM HTN (suboptimal still, adjust home meds, hold off furosemide) HFpEF DVT prophylaxis
[2020-01-13] MEDS: SODIUM CHLORIDE 0.45% 1,000 ML IV SCH (13:51)
--- NOTE | 2020-01-13 14:34 | PN ---
Physical Exam: SUBJECTIVE: Patient seen and examined. Improved weakness/dizziness. Denies any fever/chills, SOB, CP, dysuria. OBJECTIVE: Vital Signs Period Temp Pulse Resp BP Sys/Hnason Pulse Ox Last 24 Hr 97.9 F-98.4 F 64-73 16-18 149-189/76-95 96-99 GENERAL: The patient is awake, alert, and fully oriented, in no acute distress. HEAD: Normal with no signs of trauma. EYES: PERRL, extraocular movements intact, sclera anicteric, conjunctiva clear. No ptosis. ENT: Ears normal, nares patent, oropharynx clear without exudates, moist mucous membranes. NECK: Trachea midline, full range of motion, supple. LUNGS: Breath sounds equal, clear to auscultation bilaterally, no wheezes, no crackles, no accessory muscle use. HEART: Regular rate and rhythm, S1, S2 without murmur, rub or gallop. ABDOMEN: Soft, nontender, nondistended, normoactive bowel sounds, no guarding, no rebound, no hepatosplenomegaly, no masses. EXTREMITIES: 2+ pulses, warm, well-perfused, no edema. NEUROLOGICAL: Cranial nerves II through XII grossly intact. Normal speech, gait not observed. PSYCH: Normal mood, normal affect. SKIN: Warm, dry, normal turgor, no rashes or lesions noted Laboratory Results - last 24 hr 01/12/20 01/12/20 01/13/20 17:28 21:25 00:05 WBC RBC Hgb Hct MCV MCH MCHC RDW Plt Count MPV Sodium Potassium Chloride Carbon Dioxide Anion Gap BUN Creatinine Est GFR (CKD-EPI)AfAm Est GFR (CKD-EPI)NonAf POC Glucometer 219 190 Random Glucose Hemoglobin A1c % Calcium Phosphorus Magnesium Ur Random Creatinine 53.0 01/13/20 01/13/20 01/13/20 06:15 06:15 06:15 WBC 5.5 RBC 2.96 L Hgb 8.2 L Hct 24.2 L MCV 81.7 MCH 27.6 MCHC 33.7 RDW 14.5 Plt Count 199 MPV 8.5 Sodium 143 Potassium 4.6 Chloride 112 H Carbon Dioxide 25 Anion Gap 6 L BUN 57.8 H Creatinine 3.4 H Est GFR (CKD-EPI)AfAm 22.27 Est GFR (CKD-EPI)NonAf 19.21 POC Glucometer Random Glucose 170 H Hemoglobin A1c % 6.9 H Calcium 8.1 L Phosphorus 4.2 Magnesium 2.0 Ur Random Creatinine Active Medications Generic Name Dose Route Start Last Admin Trade Name Tamia PRN Reason Stop Dose Admin Amlodipine Besylate 5 mg 01/11/20 10:00 01/13/20 09:54 Norvasc - PO 5 mg DAILY [facility] Administration Aspirin 81 mg 01/11/20 10:00 01/13/20 09:55 Asa - PO 81 mg DAILY [facility] Administration Atorvastatin Calcium 80 mg 01/10/20 22:00 01/12/20 21:29 Lipitor - PO 80 mg HS [facility] Administration Clopidogrel Bisulfate 75 mg 01/11/20 10:00 01/13/20 09:54 Plavix - PO 75 mg DAILY [facility] Administration Ergocalciferol 50,000 unit 01/15/20 10:00 Drisdol - PO WE [facility] Gabapentin 200 mg 01/10/20 22:00 01/13/20 09:55 Neurontin - PO 200 mg BID [facility] Administration Heparin Sodium (Porcine) 5,000 unit 01/10/20 18:00 01/13/20 09:55 Heparin - SQ 5,000 unit Q8H-IV [facility] Administration Sodium Chloride 1,000 mls @ 50 mls/hr 01/13/20 13:15 01/13/20 13:51 1/2 Normal Saline IV 01/14/20 13:02 50 mls/hr ASDIR [facility] Administration Insulin Aspart 1 vial 01/10/20 16:30 01/13/20 11:52 Novolog Vial Sliding Scale - SQ 4 unit ACHS [facility] Administration Protocol Labetalol HCl 400 mg 01/10/20 22:00 01/13/20 13:51 Normodyne - PO 400 mg TID [facility] Administration Sodium Bicarbonate 650 mg 01/13/20 13:02 Sodium Bicarbonate - PO BIDWM [facility] Tamsulosin HCl 0.4 mg 01/11/20 08:30 01/13/20 08:23 Flomax - PO 0.4 mg DAILY@0830 [facility] Administration ASSESSMENT/PLAN: Pt is a 55 year old male with 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 #Pre-syncope, dizziness -Hx of CVA/TIA in past with L sided residual deficits -CT, MRI reviewed; no acute changes -Carotid ultrasound with mild atherosclerosis -Neuro consult appreciated #SENA on CKD -Cr downtrending 3.4; continue to trend -Held Lasix -Nephro - home bicarb changed to 650 BID; changed fluids to 1/2 NS 50cc/hr #HTN -on home Lasix and labetalol -Held home Lasix for SENA,increased home norvasc to 10mg -clonidine 0.3 mg weekly patch -resumed hydralazine 50mg TID #Hx of HLD -continue home lipitor, ASA, plavix #Hx of CHF -held Lasix due to SENA #Hx of T2DM -held home DM meds -SSI and BGM -A1c 6.9 -retinopathy/nephropathy #Hx of BPH -cont Flomax PPx Heparin 5000u TID FEN 1/2 NS 50cc/hr Monitor electrolytes Diabetic diet Dispo: Transfer to med-surg. Held lasix and on 1/2 NS 50cc/hr SENA. Resumed more home HTN meds. Monitor BP. Visit type - Emergency Visit Emergency Visit: Yes ED Registration Date: 01/10/20 Care time: The patient presented to the Emergency Department on the above date and was hospitalized for further evaluation of their emergent condition. - New Patient This patient is new to me today: No - Critical Care Critical Care patient: No ATTENDING PHYSICIAN STATEMENT I saw and evaluated the patient. I reviewed the resident's note and discussed the case with the resident. I agree with the resident's findings and plan as documented. SUBJECTIVE: OBJECTIVE: ASSESSMENT AND PLAN:
[2020-01-13] MEDS: amLODIPine BESYLATE 10 MG TABLET (FP) PO SCH (16:48)
[2020-01-13] MEDS: ATORVASTATIN CA 80 MG TABLET (FP) PO SCH (21:47)
[2020-01-13] MEDS: hydrALAZINE HCL 50 MG TABLET (FP) PO SCH (21:48)
[2020-01-14] MEDS: HEPARIN NA (PORCINE) 5,000 UNITS/ML 1ML VIAL SQ SCH ×3 (01:41→17:00)
[2020-01-14] MEDS: hydrALAZINE HCL 50 MG TABLET (FP) PO SCH ×3 (06:23→22:18)
[2020-01-14] MEDS: LABETALOL HCL 200 MG TABLET (FP) PO SCH ×3 (06:23→22:18)
[2020-01-14] MEDS: INSULIN SLIDING SCALE (NOVOLOG) 1 VIAL SQ SCH ×4 (06:24→22:18)
[2020-01-14 06:42] LABS: HEMATOCRIT 22.7 % (35.4-49); HEMOGLOBIN 7.5 GM/dL (11.7-16.9); MCHC 33.3 g/dl (32.0-35.9); MEAN CELL VOLUME 81.3 fl (80-96); MEAN PLT VOLUME 8.5 fl (7.5-11.1); PLATELET COUNT 183 K/MM3 (134-434); RBC 2.79 M/mm3 (4.00-5.60); RDW 14.4 % (11.9-15.9); WHITE BLOOD COUNT 5.3 K/mm3 (4.0-10.0)
[2020-01-14] MEDS ORDERED: INSULIN SLIDING SCALE (NOVOLOG) 1 VIAL SQ ONE (06:50)
[2020-01-14 07:07] LABS: BLOOD UREA NITROGEN 60.7 mg/dL (7-18); CALCIUM 7.9 mg/dL (8.5-10.1); CREATININE 3.2 mg/dL (0.55-1.3); MAGNESIUM 2.1 mg/dL (1.8-2.4); PHOSPHOROUS 4.1 mg/dL (2.5-4.9); POTASSIUM 4.3 mmol/L (3.5-5.1)
[2020-01-14] MEDS: TAMSULOSIN HCL 0.4 MG CAP PO SCH (07:54)
[2020-01-14] MEDS: SODIUM BICARBONATE 650 MG TABLET PO SCH ×2 (07:54→17:00)
[2020-01-14] MEDS ORDERED: PT OWN MED DRAWER 7, Y5N ONE (08:39)
[2020-01-14] MEDS: ASPIRIN 81 MG CHEWABLE TABLETS PO SCH (09:13)
[2020-01-14] MEDS: CLOPIDOGREL BISULFATE 75 MG TABLET (FP) PO SCH (09:13)
[2020-01-14] MEDS: GABAPENTIN 100 MG CAPSULE PO SCH ×2 (09:13→22:17)
[2020-01-14] MEDS: amLODIPine BESYLATE 10 MG TABLET (FP) PO SCH (09:13)
[2020-01-14] MEDS: SODIUM CHLORIDE 0.45% 1,000 ML IV SCH (09:17)
--- NOTE | 2020-01-14 12:18 | PN ---
Progress Note, Physician History of Present Illness: Pt seen and examined at bedside. He denies shortness of breath. He is awake and alert. - Current Medication List Current Medications: Active Medications Amlodipine Besylate (Norvasc -) 10 mg PO DAILY [facility] Last Admin: 01/14/20 09:13 Dose: 10 mg Documented by: Aspirin (Asa -) 81 mg PO DAILY [facility] Last Admin: 01/14/20 09:13 Dose: 81 mg Documented by: Atorvastatin Calcium (Lipitor -) 80 mg PO HS [facility] Last Admin: 01/13/20 21:47 Dose: 80 mg Documented by: Clonidine HCl (Catapres Tts Patch -) 0.3 mg TD Q7D@1000 [facility] Last Admin: 01/13/20 17:32 Dose: 0.3 mg Documented by: Clopidogrel Bisulfate (Plavix -) 75 mg PO DAILY [facility] Last Admin: 01/14/20 09:13 Dose: 75 mg Documented by: Ergocalciferol (Drisdol -) 50,000 unit PO WE [facility] Gabapentin (Neurontin -) 200 mg PO BID [facility] Last Admin: 01/14/20 09:13 Dose: 200 mg Documented by: Heparin Sodium (Porcine) (Heparin -) 5,000 unit SQ Q8H-IV [facility] Last Admin: 01/14/20 09:13 Dose: 5,000 unit Documented by: Hydralazine HCl (Apresoline -) 50 mg PO TID [facility] Last Admin: 01/14/20 06:23 Dose: 50 mg Documented by: Sodium Chloride (1/2 Normal Saline) 1,000 mls @ 50 mls/hr IV ASDIR [facility] Stop: 01/14/20 13:02 Last Admin: 01/14/20 09:17 Dose: 50 mls/hr Documented by: Insulin Aspart (Novolog Vial Sliding Scale -) 1 vial SQ ACHS [facility]; Protocol Last Admin: 01/14/20 11:52 Dose: Not Given Documented by: Labetalol HCl (Normodyne -) 400 mg PO TID [facility] Last Admin: 01/14/20 06:23 Dose: 400 mg Documented by: Sodium Bicarbonate (Sodium Bicarbonate -) 650 mg PO BIDWM [facility] Last Admin: 01/14/20 07:54 Dose: 650 mg Documented by: Tamsulosin HCl (Flomax -) 0.4 mg PO DAILY@0830 [facility] Last Admin: 01/14/20 07:54 Dose: 0.4 mg Documented by: - Objective Vital Signs: Vital Signs Temperature 97.9 F 01/14/20 09:12 Pulse Rate 68 01/14/20 09:12 Respiratory Rate 18 01/14/20 09:12 Blood Pressure 155/85 01/14/20 09:12 O2 Sat by Pulse Oximetry (%) 99 01/14/20 09:12 Constitutional: Yes: Calm Eyes: Yes: Conjunctiva Clear HENT: Yes: Atraumatic Neck: Yes: Supple Cardiovascular: Yes: S1, S2 Respiratory: Yes: CTA Bilaterally Gastrointestinal: Yes: Normal Bowel Sounds, Soft Genitourinary: Yes: WNL Musculoskeletal: Yes: WNL Edema: No Neurological: Yes: Oriented Psychiatric: Yes: Oriented Labs: CBC, BMP 01/14/20 05:30 01/14/20 05:30 INR, PTT INR 1.17 (0.83-1.09) H 01/10/20 13:10 Assessment/Plan Current Medications Generic Name Dose Route Start Last Admin Trade Name Tamia PRN Reason Stop Dose Admin Amlodipine Besylate 10 mg 01/13/20 15:15 01/14/20 09:13 Norvasc - PO 10 mg DAILY [facility] Administration Aspirin 81 mg 01/11/20 10:00 01/14/20 09:13 Asa - PO 81 mg DAILY [facility] Administration Atorvastatin Calcium 80 mg 01/10/20 22:00 01/13/20 21:47 Lipitor - PO 80 mg HS [facility] Administration Clonidine HCl 0.3 mg 01/13/20 14:59 01/13/20 17:32 Catapres Tts Patch - TD 0.3 mg Q7D@1000 [facility] Administration Clopidogrel Bisulfate 75 mg 01/11/20 10:00 01/14/20 09:13 Plavix - PO 75 mg DAILY [facility] Administration Ergocalciferol 50,000 unit 01/15/20 10:00 Drisdol - PO WE [facility] Gabapentin 200 mg 01/10/20 22:00 01/14/20 09:13 Neurontin - PO 200 mg BID [facility] Administration Heparin Sodium (Porcine) 5,000 unit 01/10/20 18:00 01/14/20 09:13 Heparin - SQ 5,000 unit Q8H-IV [facility] Administration Hydralazine HCl 50 mg 01/13/20 22:00 01/14/20 06:23 Apresoline - PO 50 mg TID [facility] Administration Sodium Chloride 1,000 mls @ 50 mls/hr 01/13/20 13:15 01/14/20 09:17 1/2 Normal Saline IV 01/14/20 13:02 50 mls/hr ASDIR [facility] Administration Insulin Aspart 1 vial 01/10/20 16:30 01/14/20 11:52 Novolog Vial Sliding Scale - SQ Not Given ACHS [facility] Protocol Labetalol HCl 400 mg 01/10/20 22:00 01/14/20 06:23 Normodyne - PO 400 mg TID [facility] Administration Sodium Bicarbonate 650 mg 01/13/20 13:02 01/14/20 07:54 Sodium Bicarbonate - PO 650 mg BIDWM [facility] Administration Tamsulosin HCl 0.4 mg 01/11/20 08:30 01/14/20 07:54 Flomax - PO 0.4 mg DAILY@0830 [facility] Administration Impression: SENA CKD CHF DM Hx of CVA HTN Plan - renal function is improving - repeat labs in am - can stop fluids - lasix on hold for now - cont to monitor renal function - will need outpt follow up
--- NOTE | 2020-01-14 14:14 | PN ---
Teaching Attending Note Name of Resident: Rocael Pink ATTENDING PHYSICIAN STATEMENT I saw and evaluated the patient. I reviewed the resident's note and discussed the case with the resident. I agree with the resident's findings and plan as documented. SUBJECTIVE: Feeling well, no complaints. No dysuria/hematuria. No further dizziness/lightheadedness. OBJECTIVE: Afebrile, Hemodynamically Stable. Last Vital Signs Temp Pulse Resp BP Pulse Ox 97.9 F 68 18 155/85 99 01/14/20 09:12 01/14/20 09:12 01/14/20 09:12 01/14/20 09:12 01/14/20 09:12 HEENT - Atraumatic, Normocephalic. Heart - S1, S2, RRR Lungs - clear to auscultation Abdomen - Soft, non-tender. Bowel Sounds normal. Extremities - no edema, no calf tenderness. Neuro - AAO x 3. Tone/Power reduced LUE/LLE Laboratory Results - last 24 hr 01/12/20 01/14/20 01/14/20 12:00 05:30 05:30 WBC 5.3 RBC 2.79 L Hgb 7.5 L Hct 22.7 L MCV 81.3 MCH 27.0 MCHC 33.3 RDW 14.4 Plt Count 183 MPV 8.5 Sodium 142 Potassium 4.3 Chloride 112 H Carbon Dioxide 25 Anion Gap 4 L BUN 60.7 H Creatinine 3.2 H Est GFR (CKD-EPI)AfAm 23.96 Est GFR (CKD-EPI)NonAf 20.67 POC Glucometer Random Glucose 206 H Calcium 7.9 L Phosphorus 4.1 Magnesium 2.1 Ur Random Creatinine 64.4 Ur Random Microalbumin 1505.4 Microalb/Creat Ratio 2338 H 01/14/20 01/14/20 06:20 11:52 WBC RBC Hgb Hct MCV MCH MCHC RDW Plt Count MPV Sodium Potassium Chloride Carbon Dioxide Anion Gap BUN Creatinine Est GFR (CKD-EPI)AfAm Est GFR (CKD-EPI)NonAf POC Glucometer 181 198 Random Glucose Calcium Phosphorus Magnesium Ur Random Creatinine Ur Random Microalbumin Microalb/Creat Ratio Current Medications Generic Name Dose Route Start Last Admin Trade Name Freq PRN Reason Stop Dose Admin Amlodipine Besylate 10 mg 01/13/20 15:15 01/14/20 09:13 Norvasc - PO 10 mg DAILY [facility] Administration Aspirin 81 mg 01/11/20 10:00 01/14/20 09:13 Asa - PO 81 mg DAILY [facility] Administration Atorvastatin Calcium 80 mg 01/10/20 22:00 01/13/20 21:47 Lipitor - PO 80 mg HS [facility] Administration Clonidine HCl 0.3 mg 01/13/20 14:59 01/13/20 17:32 Catapres Tts Patch - TD 0.3 mg Q7D@1000 [facility] Administration Clopidogrel Bisulfate 75 mg 01/11/20 10:00 01/14/20 09:13 Plavix - PO 75 mg DAILY [facility] Administration Ergocalciferol 50,000 unit 01/15/20 10:00 Drisdol - PO WE [facility] Gabapentin 200 mg 01/10/20 22:00 01/14/20 09:13 Neurontin - PO 200 mg BID [facility] Administration Heparin Sodium (Porcine) 5,000 unit 01/10/20 18:00 01/14/20 09:13 Heparin - SQ 5,000 unit Q8H-IV [facility] Administration Hydralazine HCl 50 mg 01/13/20 22:00 01/14/20 13:17 Apresoline - PO 50 mg TID [facility] Administration Insulin Aspart 1 vial 01/10/20 16:30 01/14/20 11:52 Novolog Vial Sliding Scale - SQ Not Given [facility] Protocol Labetalol HCl 400 mg 01/10/20 22:00 01/14/20 13:17 Normodyne - PO 400 mg TID [facility] Administration Sodium Bicarbonate 650 mg 01/13/20 13:02 01/14/20 07:54 Sodium Bicarbonate - PO 650 mg BIDWM [facility] Administration Tamsulosin HCl 0.4 mg 01/11/20 08:30 01/14/20 07:54 Flomax - PO 0.4 mg DAILY@0830 [facility] Administration Home Medications Medication Instructions Recorded Alogliptin Benzoate [Alogliptin] 6.25 mg PO DAILY 12/02/19 Aspirin [ASA -] 81 mg PO DAILY 12/02/19 Atorvastatin Ca [Lipitor] 80 mg PO HS 12/02/19 Clopidogrel Bisulfate [Plavix] 75 mg PO DAILY 12/02/19 Ergocalciferol (Vitamin D2) 50,000 unit PO WE 12/02/19 [Vitamin D2] Furosemide [Lasix -] 80 mg PO BID@0600,1400 #120 tablet 12/02/19 Gabapentin 200 mg PO BID 12/02/19 Labetalol HCl [Normodyne -] 400 mg PO TID #120 tablet 12/02/19 Sodium Bicarbonate - 1,300 mg PO BID 12/02/19 Tamsulosin HCl [Flomax] 0.4 mg PO DAILY 12/02/19 Amlodipine Besylate [Norvasc -] 5 mg PO DAILY 01/10/20 Clonidine Patch [Catapres Tts 0.3 mg TD WE 01/10/20 Patch -] Ergocalciferol (Vitamin D2) 50,000 unit PO WE 01/10/20 [Vitamin D2] Spironolactone 25 mg PO DAILY 01/10/20 ASSESSMENT AND PLAN: 55 year old male with history of CVA x 4 with residual L sided weakness, HTN, HLD, Chronic diastolic CHF (EF 50-55% 11/2019), DM 2, CKD 3, BPH, Legally blind, presents with dizziness and pre-syncope. 1. Presyncope secondary to Orthostasis due to dehydration secondary to over- diuresis CT Head/CT C-Spine -no acute findings MRI - Chornic small vessel disease. Responded well to gentle hydration and holding diuretics. 2. SENA on CKD 3 - secondary to Lasix/Spironolactone diuresis Improved with hydration. Renal US - medical renal disease, trace R perinephric stranding Significant microalbuminuria Lasix reintroduced today Will monitor renal function for another day as per Nephrology Continue Sodium Bicarb 3. DM 2 with Nephropathy, A1C 6.9 Maintain on Novolog as per Sliding scale during in-patient stay 4. Hx CVA - continue ASA, Plavix, Statin. 5. HTN - Continue Norvasc, Clonidine, Labetolol. Hydralazine added. Spironolactone held. BRITTANY-I to be introduced at some point in the future, will defer to Nephrology. 6. Chronic Diastolic CHF - Lasix/Spironolactone held. 7.BPH - on Flomax. 8. Normocytic Anemia - Iron studies wnl 12/11. Will request B12/Folate levels. DVT prophylaxis - Heparin SQ
--- NOTE | 2020-01-14 15:28 | PN ---
Progress Note (short form) - Note Progress Note: dizziness, now resolved HPI 54 Year old male history of HTN, HLD, DM, Stroke in past with left residual weakness, chf, legal blindness . 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 Patient came with feeling of dizziness, he describes as lighheadedness with change in posture. No hearing difficulty, no tnnitis, no swaying to one side. Ct scan showed white matter disease . patient symptoms resolved, he has multiple stroke in past and and had left mild weakness. He was workin on ladder and slided down to ladder . He also have some difficulty understanding his , his symtoms resolved. he also felt worsenign of left sided weakness. At admission his nih score was 4 -- pateint is feeling better, is being considered for discharged, mri of brain uremarkable, carotid ultrasound is normal NEUROLOGICAL EXAMINATION Alert oriented x 3, mild left sided facial palsy motor 5/5 on rightside, mild left sided weakness( old) ct head and ct neck no acute findings mri of brain and carotid ultrasoudn is unreamrkable Assessment/Plan Most likley dizziness resolved, most likley dehydration is on maximal medical therapy and on statin, aspirin and palvix Plan continue current maximal medical therapy - unlikley to be stroke, cerebellar dysfunction or post column disease, would follow outpatient Thanking you alo Clancy MD
--- NOTE | 2020-01-14 16:17 | PN ---
Physical Exam: SUBJECTIVE: Patient seen and examined. Improved weakness/dizziness. Denies any fever/chills, SOB, CP, dysuria. OBJECTIVE: Vital Signs Period Temp Pulse Resp BP Sys/Hanson Pulse Ox Last 24 Hr 97.4 F-97.9 F 64-69 18-19 148-170/81-87 99-99 GENERAL: The patient is awake, alert, and fully oriented, in no acute distress. HEAD: Normal with no signs of trauma. EYES: PERRL, extraocular movements intact, sclera anicteric, conjunctiva clear. No ptosis. ENT: Ears normal, nares patent, oropharynx clear without exudates, moist mucous membranes. NECK: Trachea midline, full range of motion, supple. LUNGS: Breath sounds equal, clear to auscultation bilaterally, no wheezes, no crackles, no accessory muscle use. HEART: Regular rate and rhythm, S1, S2 without murmur, rub or gallop. ABDOMEN: Soft, nontender, nondistended, normoactive bowel sounds, no guarding, no rebound, no hepatosplenomegaly, no masses. EXTREMITIES: 2+ pulses, warm, well-perfused, no edema. NEUROLOGICAL: Cranial nerves II through XII grossly intact. Normal speech, gait not observed. PSYCH: Normal mood, normal affect. SKIN: Warm, dry, normal turgor, no rashes or lesions noted Laboratory Results - last 24 hr 01/12/20 01/14/20 01/14/20 12:00 05:30 05:30 WBC 5.3 RBC 2.79 L Hgb 7.5 L Hct 22.7 L MCV 81.3 MCH 27.0 MCHC 33.3 RDW 14.4 Plt Count 183 MPV 8.5 Sodium 142 Potassium 4.3 Chloride 112 H Carbon Dioxide 25 Anion Gap 4 L BUN 60.7 H Creatinine 3.2 H Est GFR (CKD-EPI)AfAm 23.96 Est GFR (CKD-EPI)NonAf 20.67 POC Glucometer Random Glucose 206 H Calcium 7.9 L Phosphorus 4.1 Magnesium 2.1 Ur Random Creatinine 64.4 Ur Random Microalbumin 1505.4 Microalb/Creat Ratio 2338 H 01/14/20 01/14/20 06:20 11:52 WBC RBC Hgb Hct MCV MCH MCHC RDW Plt Count MPV Sodium Potassium Chloride Carbon Dioxide Anion Gap BUN Creatinine Est GFR (CKD-EPI)AfAm Est GFR (CKD-EPI)NonAf POC Glucometer 181 198 Random Glucose Calcium Phosphorus Magnesium Ur Random Creatinine Ur Random Microalbumin Microalb/Creat Ratio Active Medications Generic Name Dose Route Start Last Admin Trade Name Tamia PRN Reason Stop Dose Admin Amlodipine Besylate 10 mg 01/13/20 15:15 01/14/20 09:13 Norvasc - PO 10 mg DAILY [facility] Administration Aspirin 81 mg 01/11/20 10:00 01/14/20 09:13 Asa - PO 81 mg DAILY [facility] Administration Atorvastatin Calcium 80 mg 01/10/20 22:00 01/13/20 21:47 Lipitor - PO 80 mg HS [facility] Administration Clonidine HCl 0.3 mg 01/13/20 14:59 01/13/20 17:32 Catapres Tts Patch - TD 0.3 mg Q7D@1000 [facility] Administration Clopidogrel Bisulfate 75 mg 01/11/20 10:00 01/14/20 09:13 Plavix - PO 75 mg DAILY [facility] Administration Ergocalciferol 50,000 unit 01/15/20 10:00 Drisdol - PO WE [facility] Gabapentin 200 mg 01/10/20 22:00 01/14/20 09:13 Neurontin - PO 200 mg BID [facility] Administration Heparin Sodium (Porcine) 5,000 unit 01/10/20 18:00 01/14/20 09:13 Heparin - SQ 5,000 unit Q8H-IV [facility] Administration Hydralazine HCl 50 mg 01/13/20 22:00 01/14/20 13:17 Apresoline - PO 50 mg TID [facility] Administration Insulin Aspart 1 vial 01/10/20 16:30 01/14/20 11:52 Novolog Vial Sliding Scale - SQ Not Given ACHS [facility] Protocol Labetalol HCl 400 mg 01/10/20 22:00 01/14/20 13:17 Normodyne - PO 400 mg TID [facility] Administration Sodium Bicarbonate 650 mg 01/13/20 13:02 01/14/20 07:54 Sodium Bicarbonate - PO 650 mg BIDWM [facility] Administration Tamsulosin HCl 0.4 mg 01/11/20 08:30 01/14/20 07:54 Flomax - PO 0.4 mg DAILY@0830 [facility] Administration ASSESSMENT/PLAN: Pt is a 55 year old male with 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 #Pre-syncope, dizziness -Hx of CVA/TIA in past with L sided residual deficits -CT, MRI reviewed; no acute changes -Carotid ultrasound with mild atherosclerosis -Neuro consult appreciated #SENA on CKD -Cr downtrending 3.2; continue to trend -Spoke with nephro; will have trial of Lasix -Fluids held per nephro -in clinic with Dr. Omi Sweeney 3.4 on 11/2019 #HTN -on home Lasix and labetalol -increased home norvasc to 10mg -Lasix trial -clonidine 0.3 mg weekly patch -resumed hydralazine 50mg TID #Hx of HLD -continue home lipitor, ASA, plavix #Hx of CHF -Lasix trial per nephro #Hx of T2DM -held home DM meds -SSI and BGM -A1c 6.9 -retinopathy/nephropathy #Hx of BPH -cont Flomax PPx Heparin 5000u TID FEN 1/2 NS 50cc/hr Monitor electrolytes Diabetic diet Dispo: Transfer to med-surg. Held lasix and on 1/2 NS 50cc/hr SENA. Resumed more home HTN meds. Monitor BP. ATTENDING PHYSICIAN STATEMENT I saw and evaluated the patient. I reviewed the resident's note and discussed the case with the resident. I agree with the resident's findings and plan as documented. SUBJECTIVE: OBJECTIVE: ASSESSMENT AND PLAN:
[2020-01-14] MEDS: ATORVASTATIN CA 80 MG TABLET (FP) PO SCH (22:17)
[2020-01-15] MEDS: HEPARIN NA (PORCINE) 5,000 UNITS/ML 1ML VIAL SQ SCH ×2 (01:06→09:22)
[2020-01-15] MEDS: INSULIN SLIDING SCALE (NOVOLOG) 1 VIAL SQ SCH ×2 (06:24→11:48)
[2020-01-15] MEDS: hydrALAZINE HCL 50 MG TABLET (FP) PO SCH ×2 (06:25→13:34)
[2020-01-15] MEDS: LABETALOL HCL 200 MG TABLET (FP) PO SCH ×2 (06:25→13:34)
[2020-01-15] MEDS: SODIUM BICARBONATE 650 MG TABLET PO SCH (09:19)
[2020-01-15] MEDS: GABAPENTIN 100 MG CAPSULE PO SCH (09:20)
[2020-01-15] MEDS: TAMSULOSIN HCL 0.4 MG CAP PO SCH (09:20)
[2020-01-15] MEDS: amLODIPine BESYLATE 10 MG TABLET (FP) PO SCH (09:20)
[2020-01-15] MEDS: CLOPIDOGREL BISULFATE 75 MG TABLET (FP) PO SCH (09:20)
[2020-01-15] MEDS: ASPIRIN 81 MG CHEWABLE TABLETS PO SCH (09:20)
[2020-01-15] MEDS ORDERED: ERGOCALCIFEROL (VIT D2) 50,000 UNIT (1.25 MG) CAPSULE PO SCH ×3 (10:00)
[2020-01-15] MEDS ORDERED: cloNIDine-TTS 0.3 MG /24 HRS PATCH.TDWK TD SCH ×2 (10:00)
--- NOTE | 2020-01-15 10:09 | PN ---
Progress Note, Physician History of Present Illness: Pt seen and examined at bedside. He is awake and alert. He denies shortness of breath. - Current Medication List Current Medications: Active Medications Amlodipine Besylate (Norvasc -) 10 mg PO DAILY [facility] Last Admin: 01/15/20 09:20 Dose: 10 mg Documented by: Aspirin (Asa -) 81 mg PO DAILY [facility] Last Admin: 01/15/20 09:20 Dose: 81 mg Documented by: Atorvastatin Calcium (Lipitor -) 80 mg PO HS [facility] Last Admin: 01/14/20 22:17 Dose: 80 mg Documented by: Clonidine HCl (Catapres Tts Patch -) 0.3 mg TD Q7D@1000 [facility] Last Admin: 01/13/20 17:32 Dose: 0.3 mg Documented by: Clopidogrel Bisulfate (Plavix -) 75 mg PO DAILY [facility] Last Admin: 01/15/20 09:20 Dose: 75 mg Documented by: Ergocalciferol (Drisdol -) 50,000 unit PO WE [facility] Gabapentin (Neurontin -) 200 mg PO BID [facility] Last Admin: 01/15/20 09:20 Dose: 200 mg Documented by: Heparin Sodium (Porcine) (Heparin -) 5,000 unit SQ Q8H-IV [facility] Last Admin: 01/15/20 09:22 Dose: Not Given Documented by: Hydralazine HCl (Apresoline -) 50 mg PO TID [facility] Last Admin: 01/15/20 06:25 Dose: 50 mg Documented by: Insulin Aspart (Novolog Vial Sliding Scale -) 1 vial SQ [facility]; Protocol Last Admin: 01/15/20 06:24 Dose: Not Given Documented by: Labetalol HCl (Normodyne -) 400 mg PO TID [facility] Last Admin: 01/15/20 06:25 Dose: 400 mg Documented by: Sodium Bicarbonate (Sodium Bicarbonate -) 650 mg PO BIDWM [facility] Last Admin: 01/15/20 09:19 Dose: 650 mg Documented by: Tamsulosin HCl (Flomax -) 0.4 mg PO DAILY@0830 [facility] Last Admin: 01/15/20 09:20 Dose: 0.4 mg Documented by: - Objective Vital Signs: Vital Signs Temperature 97.5 F L 01/15/20 09:23 Pulse Rate 68 01/15/20 09:23 Respiratory Rate 19 01/15/20 09:23 Blood Pressure 154/79 01/15/20 09:23 O2 Sat by Pulse Oximetry (%) 100 01/15/20 09:23 Constitutional: Yes: Calm Eyes: Yes: Conjunctiva Clear HENT: Yes: Atraumatic Neck: Yes: Supple Cardiovascular: Yes: S1, S2 Respiratory: Yes: CTA Bilaterally Gastrointestinal: Yes: Normal Bowel Sounds, Soft Genitourinary: Yes: WNL Musculoskeletal: Yes: WNL Edema: No Neurological: Yes: Oriented Psychiatric: Yes: Oriented Labs: CBC, BMP 01/14/20 05:30 01/14/20 05:30 INR, PTT INR 1.17 (0.83-1.09) H 01/10/20 13:10 Assessment/Plan Current Medications Generic Name Dose Route Start Last Admin Trade Name Freq PRN Reason Stop Dose Admin Amlodipine Besylate 10 mg 01/13/20 15:15 01/15/20 09:20 Norvasc - PO 10 mg DAILY [facility] Administration Aspirin 81 mg 01/11/20 10:00 01/15/20 09:20 Asa - PO 81 mg DAILY [facility] Administration Atorvastatin Calcium 80 mg 01/10/20 22:00 01/14/20 22:17 Lipitor - PO 80 mg HS [facility] Administration Clonidine HCl 0.3 mg 01/13/20 14:59 01/13/20 17:32 Catapres Tts Patch - TD 0.3 mg Q7D@1000 [facility] Administration Clopidogrel Bisulfate 75 mg 01/11/20 10:00 01/15/20 09:20 Plavix - PO 75 mg DAILY [facility] Administration Ergocalciferol 50,000 unit 01/15/20 10:00 Drisdol - PO WE [facility] Gabapentin 200 mg 01/10/20 22:00 01/15/20 09:20 Neurontin - PO 200 mg BID [facility] Administration Heparin Sodium (Porcine) 5,000 unit 01/10/20 18:00 01/15/20 09:22 Heparin - SQ Not Given Q8H-IV [facility] Hydralazine HCl 50 mg 01/13/20 22:00 01/15/20 06:25 Apresoline - PO 50 mg TID [facility] Administration Insulin Aspart 1 vial 01/10/20 16:30 01/15/20 06:24 Novolog Vial Sliding Scale - SQ Not Given ACHS [facility] Protocol Labetalol HCl 400 mg 01/10/20 22:00 01/15/20 06:25 Normodyne - PO 400 mg TID [facility] Administration Sodium Bicarbonate 650 mg 01/13/20 13:02 01/15/20 09:19 Sodium Bicarbonate - PO 650 mg BIDWM [facility] Administration Tamsulosin HCl 0.4 mg 01/11/20 08:30 01/15/20 09:20 Flomax - PO 0.4 mg DAILY@0830 [facility] Administration Impression: SENA CKD CHF DM Hx of CVA HTN Plan - follow up bmp - can restart lasix at lower dose, pt was on 80 mg of lasix bid , can change to daily and monitor volume status - can see in office next week as needed - cont to monitor renal function - can cont bicarb - monitor lytes
[2020-01-15] MEDS ORDERED: PT OWN MED DRAWER 7, Y5N ONE (10:45)
--- NOTE | 2020-01-15 13:38 | PN ---
Teaching Attending Note Name of Resident: Rocael Pink ATTENDING PHYSICIAN STATEMENT I saw and evaluated the patient. I reviewed the resident's note and discussed the case with the resident. I agree with the resident's findings and plan as documented. SUBJECTIVE: Feeling well, no complaints. No dysuria/hematuria. No further dizziness/lightheadedness. OBJECTIVE: Afebrile, Hemodynamically Stable. Last Vital Signs Temp Pulse Resp BP Pulse Ox 97.5 F L 68 19 154/79 100 01/15/20 09:23 01/15/20 09:23 01/15/20 09:23 01/15/20 09:23 01/15/20 09:23 Heart - S1, S2, RRR Lungs - clear to auscultation Abdomen - Soft, non-tender. Bowel Sounds normal. Extremities - no edema, no calf tenderness. Neuro - AAO x 3. Tone/Power mildly reduced LUE/LLE Laboratory Results - last 24 hr 01/13/20 01/15/20 01/15/20 06:15 06:23 11:47 POC Glucometer 148 189 JAMAR Screen Negative Current Medications Generic Name Dose Route Start Last Admin Trade Name Igorq PRN Reason Stop Dose Admin Amlodipine Besylate 10 mg 01/13/20 15:15 01/15/20 09:20 Norvasc - PO 10 mg DAILY PASCUAL Administration Aspirin 81 mg 01/11/20 10:00 01/15/20 09:20 Asa - PO 81 mg DAILY PASCUAL Administration Atorvastatin Calcium 80 mg 01/10/20 22:00 01/14/20 22:17 Lipitor - PO 80 mg HS PASCUAL Administration Clonidine HCl 0.3 mg 01/13/20 14:59 01/13/20 17:32 Catapres Tts Patch - TD 0.3 mg Q7D@1000 PASCUAL Administration Clopidogrel Bisulfate 75 mg 01/11/20 10:00 01/15/20 09:20 Plavix - PO 75 mg DAILY PASCUAL Administration Ergocalciferol 50,000 unit 01/15/20 10:00 01/15/20 10:53 Drisdol - PO 50,000 unit WE PASCUAL Administration Gabapentin 200 mg 01/10/20 22:00 01/15/20 09:20 Neurontin - PO 200 mg BID PASCUAL Administration Heparin Sodium (Porcine) 5,000 unit 01/10/20 18:00 09/23/20 09:22 Heparin - SQ Not Given Q8H-IV PASCUAL Hydralazine HCl 50 mg 01/13/20 22:00 01/15/20 06:25 Apresoline - PO 50 mg TID PASCUAL Administration Insulin Aspart 1 vial 01/10/20 16:30 01/15/20 11:48 Novolog Vial Sliding Scale - SQ 2 unit ACHS PASCUAL Administration Protocol Labetalol HCl 400 mg 01/10/20 22:00 01/15/20 06:25 Normodyne - PO 400 mg TID PASCUAL Administration Sodium Bicarbonate 650 mg 01/13/20 13:02 01/15/20 09:19 Sodium Bicarbonate - PO 650 mg BIDWM PASCUAL Administration Tamsulosin HCl 0.4 mg 01/11/20 08:30 01/15/20 09:20 Flomax - PO 0.4 mg DAILY@0830 PASCUAL Administration Home Medications Medication Instructions Recorded Alogliptin Benzoate [Alogliptin] 6.25 mg PO DAILY 12/02/19 Aspirin [ASA -] 81 mg PO DAILY 12/02/19 Atorvastatin Ca [Lipitor] 80 mg PO HS 12/02/19 Clopidogrel Bisulfate [Plavix] 75 mg PO DAILY 12/02/19 Ergocalciferol (Vitamin D2) 50,000 unit PO WE 12/02/19 [Vitamin D2] Gabapentin 200 mg PO BID 12/02/19 Labetalol HCl [Normodyne -] 400 mg PO TID #120 tablet 12/02/19 Sodium Bicarbonate - 1,300 mg PO BID 12/02/19 Tamsulosin HCl [Flomax] 0.4 mg PO DAILY 12/02/19 Amlodipine Besylate [Norvasc -] 5 mg PO DAILY 01/10/20 Clonidine Patch [Catapres Tts 0.3 mg TD WE 01/10/20 Patch -] Spironolactone 25 mg PO DAILY 01/10/20 Furosemide 80 mg PO DAILY #30 tablet 01/15/20 Hydralazine HCl 50 mg PO TID 01/15/20 ASSESSMENT AND PLAN: 55 year old male with history of CVA x 4 with residual L sided weakness, HTN, HLD, Chronic diastolic CHF (EF 50-55% 11/2019), DM 2, CKD 3, BPH, Legally blind, presents with dizziness and pre-syncope. 1. Presyncope secondary to Orthostasis due to dehydration secondary to over- diuresis CT Head/CT C-Spine - no acute findings MRI - Chronic small vessel disease. Responded well to gentle hydration. Gentle re-introduction of diuretics. 2. SENA on CKD 3 - secondary to Lasix/Spironolactone diuresis Improved with hydration. Renal US - medical renal disease, trace R perinephric stranding Significant microalbuminuria Lasix to be reintroduced tomorrow once daily rather than twice daily. Continue Sodium Bicarb Nephrology follow up as out-patient for renal function monitoring. 3. DM 2 with Nephropathy, A1C 6.9 Resume home anti-hyperglycemic regimen. 4. Hx CVA - continue ASA, Plavix, Statin. 5. HTN - Continue Norvasc, Clonidine, Labetolol, Hydralazine added. Resume Spironolactone as per Nephrology. BRITTANY-I to be introduced at some point in the future, will defer to Nephrology. 6. Chronic Diastolic CHF - Lasix/Spironolactone to be resumed. 7. BPH - on Flomax. 8. Normocytic Anemia, likely sec to Chronic Disease/CKD 3 - Iron studies wnl 12/11. B12/Folate levels pending, will supplement as required. Medically stable for discharge with Nephrology follow up.
[2020-01-15 14:06] LABS: BASO % 0.7 % (0-2.0); EOS % 5.4 % (0-4.5); HEMATOCRIT 22.8 % (35.4-49); HEMOGLOBIN 7.6 GM/dL (11.7-16.9); LYMPH % 13.9 % (8-40); MCH 27.7 pg (25.7-33.7); MCHC 33.5 g/dl (32.0-35.9); MEAN CELL VOLUME 82.9 fl (80-96); MEAN PLT VOLUME 8.8 fl (7.5-11.1); MONO % 6.8 % (3.8-10.2); NEUT % 73.2 % (42.8-82.8); PLATELET COUNT 173 K/MM3 (134-434); RBC 2.75 M/mm3 (4.00-5.60); RDW 14.8 % (11.9-15.9); WHITE BLOOD COUNT 4.3 K/mm3 (4.0-10.0)
[2020-01-15 14:23] VITALS: BP 131/76; PULSE 69; TEMP 97.9
[2020-01-15 14:39] LABS: BLOOD UREA NITROGEN 56.8 mg/dL (7-18); CALCIUM 8.4 mg/dL (8.5-10.1); CREATININE 3.2 mg/dL (0.55-1.3); POTASSIUM 4.8 mmol/L (3.5-5.1)
--- NOTE | 2020-01-15 15:01 | DS ---
Physical Exam: SUBJECTIVE: Patient seen and examined. No acute complaints. OBJECTIVE: Vital Signs Period Temp Pulse Resp BP Sys/Hanson Pulse Ox Last 24 Hr 97.4 F-98.2 F 66-72 16-19 131-183/76-93 97-100 PHYSICAL EXAM GENERAL: The patient is awake, alert, and fully oriented, in no acute distress. HEAD: Normal with no signs of trauma. EYES: PERRL, extraocular movements intact, sclera anicteric, conjunctiva clear. ENT: Ears normal, nares patent, oropharynx clear without exudates, moist mucous membranes. NECK: Trachea midline, full range of motion, supple. LUNGS: Breath sounds equal, clear to auscultation bilaterally, no wheezes, no crackles, no accessory muscle use. HEART: Regular rate and rhythm, S1, S2 without murmur, rub or gallop. ABDOMEN: Soft, nontender, nondistended, normoactive bowel sounds, no guarding, no rebound, no hepatosplenomegaly, no masses. EXTREMITIES: 2+ pulses, warm, well-perfused, no edema. 4/5 motor strength on L, 5/5 on R NEUROLOGICAL: Cranial nerves II through XII grossly intact. Normal speech, gait not observed. Residual L sided weakness from CVA hx. PSYCH: Normal mood, normal affect. SKIN: Warm, dry, normal turgor, no rashes or lesions noted. LABS Laboratory Results - last 24 hr 01/13/20 01/15/20 01/15/20 06:15 06:23 11:47 WBC RBC Hgb Hct MCV MCH MCHC RDW Plt Count MPV Absolute Neuts (auto) Neutrophils % Lymphocytes % Monocytes % Eosinophils % Basophils % Nucleated RBC % Sodium Potassium Chloride Carbon Dioxide Anion Gap BUN Creatinine Est GFR (CKD-EPI)AfAm Est GFR (CKD-EPI)NonAf POC Glucometer 148 189 Random Glucose Calcium Vitamin B12 Serum Folate JAMAR Screen Negative 01/15/20 01/15/20 13:30 13:30 WBC 4.3 RBC 2.75 L Hgb 7.6 L Hct 22.8 L MCV 82.9 MCH 27.7 MCHC 33.5 RDW 14.8 Plt Count 173 MPV 8.8 Absolute Neuts (auto) 3.1 Neutrophils % 73.2 Lymphocytes % 13.9 D Monocytes % 6.8 Eosinophils % 5.4 H Basophils % 0.7 Nucleated RBC % 0 Sodium 140 Potassium 4.8 Chloride 108 H Carbon Dioxide 26 Anion Gap 6 L BUN 56.8 H Creatinine 3.2 H Est GFR (CKD-EPI)AfAm 23.96 Est GFR (CKD-EPI)NonAf 20.67 POC Glucometer Random Glucose 228 H Calcium 8.4 L Vitamin B12 465 Serum Folate 9 JAMAR Screen HOSPITAL COURSE: Date of Admission:01/10/20 Date of Discharge: 01/15/20 Discharge Summary Problems reviewed: Yes Reason For Visit: ACUTE KIDNEY INJURY DIZZINESS CVA Condition: Improved - Instructions Diet, Activity, Other Instructions: Your visit: You were admitted to the hospital for dizziness. Your symptoms have improved. While here your kidney function declined. It improved with holding your diuretic medication and IV fluids. Medication changes: -DECREASE your lasix (furosemide) dose to 80mg ONCE daily. -Continue to take aldactone 25mg daily -Continue to take sodium bicarb tablets Follow up appointments: -Nephrology Dr Hutchinson in 1 week -Neurology Dr. Clancy in 2 weeks -Visit with your Primary Care Provider Dr. Braga in 2 weeks. Additional Instructions: -You are being discharged to your home. -Please return to the Emergency Department if you experience worsening pain, dizziness, fevers, chills, shortness of breath, or chest pain, or if you experie nce any worsening, new or concerning symptoms Referrals: Thom Clancy MD [Staff Physician] - 2 Weeks Iván Braga MD [Staff Physician] - 2 Weeks Marcel Hutchinson MD [Staff Physician] - 1 Week Disposition: HOME - Home Medications Comprehensive Discharge Medication List: Ambulatory Orders Alogliptin Benzoate [Alogliptin] 6.25 mg PO DAILY 12/02/19 Aspirin [ASA -] 81 mg PO DAILY 12/02/19 Atorvastatin Ca [Lipitor] 80 mg PO HS 12/02/19 Clopidogrel Bisulfate [Plavix] 75 mg PO DAILY 12/02/19 Ergocalciferol (Vitamin D2) [Vitamin D2] 50,000 unit PO WE 12/02/19 Gabapentin 200 mg PO BID 12/02/19 Labetalol HCl [Normodyne -] 400 mg PO TID #120 tablet 12/02/19 Sodium Bicarbonate - 1,300 mg PO BID 12/02/19 Tamsulosin HCl [Flomax] 0.4 mg PO DAILY 12/02/19 Amlodipine Besylate [Norvasc -] 5 mg PO DAILY 01/10/20 Clonidine Patch [Catapres Tts Patch -] 0.3 mg TD WE 01/10/20 Spironolactone 25 mg PO DAILY 01/10/20 Furosemide 80 mg PO DAILY #30 tablet 01/15/20 Hydralazine HCl 50 mg PO TID 01/15/20 ATTENDING PHYSICIAN STATEMENT I saw and evaluated the patient. I reviewed the resident's note and discussed the case with the resident. I agree with the resident's findings and plan as documented. SUBJECTIVE: OBJECTIVE: ASSESSMENT AND PLAN:
[2020-01-20 15:07] LABS: TOTAL PROTEIN, URINE 192.2 mg/dL (Not Estab.)
== END 2020-01-15 15:45 | disposition home or self-care (01) | DRG 422 ==
LOC: JER 12:42 → JERBED 16:27 → J7W 22:18 → J4S 01-11 01:34
DX: E86.0 Dehydration (principal); N17.9 Acute kidney failure, unspecified; I69.354 Hemiplegia and hemiparesis following cerebral infarction affecting left non-dominant side; H54.8 Legal blindness, as defined in USA; I95.2 Hypotension due to drugs; T50.1X5A Adverse effect of loop [high-ceiling] diuretics, initial encounter; I13.0 Hypertensive heart and chronic kidney disease with heart failure and stage 1 through stage 4 chronic kidney disease, or unspecified chronic kidney disease; E11.22 Type 2 diabetes mellitus with diabetic chronic kidney disease; N18.3 Chronic kidney disease, stage 3 (moderate); I50.32 Chronic diastolic (congestive) heart failure; N40.0 Benign prostatic hyperplasia without lower urinary tract symptoms; E78.5 Hyperlipidemia, unspecified; E11.319 Type 2 diabetes mellitus with unspecified diabetic retinopathy without macular edema; H49.02 Third [oculomotor] nerve palsy, left eye; D63.1 Anemia in chronic kidney disease; I16.0 Hypertensive urgency; R55 Syncope and collapse
CPT/HCPCS: 36415; 70450-TC; 70551-TC; 71045-TC-FY; 72125-TC; 76775-TC; 80048; 80053; 80061; 81003; 82043; 82436; 82550; 82553; 82565; 82570; 82607; 82746; 82962; 83036; 83721; 83735; 84100; 84133; 84156; 84157; 84300; 84484; 85025; 85027; 85610; 85730; 86038; 86850; 86900; 86901; 93005; 93010; 93880-TC; 99285-25; J1644; U0003

== ENCOUNTER 2020-03-30 12:47 | Inpatient (IN) | payer OTHER ==
[2020-03-30 13:09] VITALS: BMI 25.0
[2020-03-30 14:21] LABS: BASO % 0.7 % (0-2.0); EOS % 1.9 % (0-4.5); HEMATOCRIT 25.4 % (35.4-49); HEMOGLOBIN 8.6 GM/dL (11.7-16.9); LYMPH % 9.5 % (8-40); MCH 27.7 pg (25.7-33.7); MCHC 33.7 g/dl (32.0-35.9); MEAN CELL VOLUME 82.1 fl (80-96); MEAN PLT VOLUME 8.8 fl (7.5-11.1); MONO % 4.9 % (3.8-10.2); PLATELET COUNT 235 K/MM3 (134-434); RBC 3.09 M/mm3 (4.00-5.60); RDW 12.9 % (11.9-15.9); WHITE BLOOD COUNT 7.7 K/mm3 (4.0-10.0)
[2020-03-30 14:28] LABS: INR 1.07 (0.83-1.09); PROTHROMBIN TIME (PATIENT) 13.1 SEC (9.7-13.0)
[2020-03-30 14:31] LABS: ACTIVATED PTT 31.5 SECONDS (25.2-36.5)
[2020-03-30 14:35] LABS: POTASSIUM 3.6 mmol/L (3.5-5.1)
[2020-03-30 14:37] LABS: ALBUMIN 3.3 g/dl (3.4-5.0); CALCIUM 10.4 mg/dL (8.5-10.1)
[2020-03-30 14:40] LABS: CREATININE 5.1 mg/dL (0.55-1.3)
[2020-03-30 14:42] LABS: BILIRUBIN,TOTAL 0.4 mg/dL (0.2-1); TOT PROT 6.7 g/dl (6.4-8.2)
[2020-03-30] MEDS ORDERED: INSULIN (NOVOLOG) ASPART 100 UNITS/ML 10ML VIAL SQ ONE (14:48)
[2020-03-30] MEDS ORDERED: SODIUM CHLORIDE 0.9% 500 ML INFUS.BAG IV ONE (15:05)
[2020-03-30] MEDS ORDERED: SODIUM CHLORIDE 500 ML IV STA (15:08)
[2020-03-30] MEDS ORDERED: DIPHTH,PERTUSS(ACELL),TET 0.5 ML DISP.SYRIN IM ONE ×2 (15:12→15:17)
[2020-03-30] MEDS ORDERED: LIDOCAINE HCL 1%, 10 MG/ML (50 mL VIAL) SQ ONE (15:16)
[2020-03-30] MEDS ORDERED: LIDOCAINE 1%/EPI 1:100000 (20 ML MULTI DOSE VIAL) ONE (15:17)
[2020-03-30] MEDS ORDERED: MAGNESIUM SULF 50% (8.12 MEQ/2 ML-1 GM VIAL) IVPB ONE (19:49)
[2020-03-30] MEDS ORDERED: MAGNESIUM SULFATE IN WATER 2 GM/50 ML IVPB IVPB ONE (19:57)
[2020-03-30 21:15] LABS: EPI CELLS 6 /uL (0-25.1); HYALINE CASTS 3 /uL (0-3.1); URINE APPEARANCE CLEAR; URINE BACTERIA 4 /uL (0-1359); URINE BILIRUBIN NEGATIVE (NEGATIVE); URINE COLOR YELLOW; URINE GLUCOSE (UA) 3+ (NEGATIVE); URINE KETONE NEGATIVE (NEGATIVE); URINE LEUK ESTERASE NEGATIVE (NEGATIVE); URINE NITRITE NEGATIVE (NEGATIVE); URINE PROTEIN 3+ (NEGATIVE); URINE RBC 9 /uL (0-23.9); URINE UROBILINOGEN 0.2 mg/dL (0.2-1.0); URINE WBC 3 /uL (0-25.8)
[2020-03-30] MEDS ORDERED: ATORVASTATIN CA 80 MG TABLET (FP) ONE (21:21)
[2020-03-30] MEDS ORDERED: LABETALOL HCL 100 MG TABLET (FP) ONE (21:21)
[2020-03-30] MEDS ORDERED: INSULIN (LEVEMIR) 100 UNITS/ML UNITS SQ ONE (21:22)
[2020-03-30] MEDS ORDERED: GABAPENTIN 100 MG CAPSULE ONE (21:22)
[2020-03-30] MEDS ORDERED: HEPARIN NA (PORCINE) 5,000 UNITS/ML 1ML VIAL ONE (21:22)
[2020-03-30] MEDS: HEPARIN NA (PORCINE) 5,000 UNITS/ML 1ML VIAL SQ SCH (21:47)
[2020-03-30] MEDS: ATORVASTATIN CA 40 MG TABLET (FP) PO SCH (21:47)
[2020-03-30] MEDS: GABAPENTIN 100 MG CAPSULE PO SCH (21:47)
[2020-03-30] MEDS: INSULIN SLIDING SCALE (NOVOLOG) 1 VIAL SQ SCH (21:47)
[2020-03-30] MEDS: LABETALOL HCL 200 MG TABLET (FP) PO SCH (21:47)
[2020-03-30] MEDS: hydrALAZINE HCL 50 MG TABLET (FP) PO SCH (21:47)
[2020-03-30] MEDS: INSULIN (LEVEMIR) 100 UNITS/ML UNITS SQ SCH (21:47)
[2020-03-30] MEDS: BACITRACIN 15 GM TUBE TOPICAL OINTMENT TP SCH (21:48)
[2020-03-31 06:58] LABS: HEMATOCRIT 21.8 % (35.4-49); HEMOGLOBIN 7.4 GM/dL (11.7-16.9); MCH 28.1 pg (25.7-33.7); MCHC 34.1 g/dl (32.0-35.9); MEAN CELL VOLUME 82.5 fl (80-96); MEAN PLT VOLUME 9.1 fl (7.5-11.1); PLATELET COUNT 197 K/MM3 (134-434); POTASSIUM 3.1 mmol/L (3.5-5.1); RBC 2.64 M/mm3 (4.00-5.60); RDW 12.8 % (11.9-15.9); WHITE BLOOD COUNT 5.7 K/mm3 (4.0-10.0)
[2020-03-31 07:04] LABS: ALBUMIN 2.7 g/dl (3.4-5.0); BLOOD UREA NITROGEN 58.4 mg/dL (7-18); CALCIUM 8.7 mg/dL (8.5-10.1); MAGNESIUM 2.2 mg/dL (1.8-2.4)
[2020-03-31 07:07] LABS: CREATININE 4.8 mg/dL (0.55-1.3)
[2020-03-31 07:08] LABS: PHOSPHOROUS 4.2 mg/dL (2.5-4.9)
[2020-03-31 07:09] LABS: BILIRUBIN,TOTAL 0.5 mg/dL (0.2-1); TOT PROT 5.6 g/dl (6.4-8.2)
[2020-03-31] MEDS: INSULIN (LEVEMIR) 100 UNITS/ML UNITS SQ SCH ×2 (07:36→22:24)
[2020-03-31] MEDS: INSULIN SLIDING SCALE (NOVOLOG) 1 VIAL SQ SCH ×4 (07:37→22:42)
[2020-03-31] MEDS: LABETALOL HCL 200 MG TABLET (FP) PO SCH ×3 (07:38→22:19)
[2020-03-31] MEDS: hydrALAZINE HCL 50 MG TABLET (FP) PO SCH ×3 (07:43→22:17)
[2020-03-31] MEDS ORDERED: PNEUMOC 13-VAL CONJ-DIP CRM/PF 0.5 ML DISP.SYRIN IM ONE (09:00)
[2020-03-31] MEDS ORDERED: ACETAMINOPHEN 325 MG TABLET (FP) PO ONE (09:32)
[2020-03-31] MEDS: TAMSULOSIN HCL 0.4 MG CAP PO SCH (09:50)
[2020-03-31] MEDS: ASPIRIN 81 MG CHEWABLE TABLETS PO SCH (09:50)
[2020-03-31] MEDS: CLOPIDOGREL BISULFATE 75 MG TABLET (FP) PO SCH (09:50)
[2020-03-31] MEDS: amLODIPine BESYLATE 10 MG TABLET (FP) PO SCH (09:50)
[2020-03-31] MEDS: BACITRACIN 15 GM TUBE TOPICAL OINTMENT TP SCH (09:50)
[2020-03-31] MEDS: GABAPENTIN 100 MG CAPSULE PO SCH ×2 (09:51→22:19)
[2020-03-31] MEDS: HEPARIN NA (PORCINE) 5,000 UNITS/ML 1ML VIAL SQ SCH ×2 (09:51→22:18)
[2020-03-31] MEDS ORDERED: POTASSIUM CHLORIDE TABS 20 MEQ TABLET.ER (FP) PO ONE (11:01)
[2020-03-31] MEDS ORDERED: KCL 10 MEQ IVPB 10 MEQ/100 ML INFUS.BAG IVPB SCH (11:15)
[2020-03-31] MEDS ORDERED: SODIUM CHLORIDE 1,000 ML IV SCH (18:30)
[2020-03-31] MEDS: ATORVASTATIN CA 40 MG TABLET (FP) PO SCH (22:18)
[2020-04-01] MEDS: hydrALAZINE HCL 50 MG TABLET (FP) PO SCH ×4 (06:23→21:27)
[2020-04-01] MEDS: LABETALOL HCL 200 MG TABLET (FP) PO SCH ×3 (06:24→21:28)
[2020-04-01] MEDS: INSULIN SLIDING SCALE (NOVOLOG) 1 VIAL SQ SCH ×4 (06:25→21:38)
[2020-04-01] MEDS: INSULIN (LEVEMIR) 100 UNITS/ML UNITS SQ SCH ×2 (06:25→21:37)
[2020-04-01 07:31] LABS: HEMATOCRIT 21.2 % (35.4-49); HEMOGLOBIN 7.1 GM/dL (11.7-16.9); MCH 27.7 pg (25.7-33.7); MCHC 33.4 g/dl (32.0-35.9); MEAN CELL VOLUME 83.2 fl (80-96); MEAN PLT VOLUME 8.5 fl (7.5-11.1); PLATELET COUNT 195 K/MM3 (134-434); RBC 2.55 M/mm3 (4.00-5.60); RDW 12.8 % (11.9-15.9); WHITE BLOOD COUNT 5.2 K/mm3 (4.0-10.0)
[2020-04-01 07:44] LABS: POTASSIUM 3.4 mmol/L (3.5-5.1)
[2020-04-01 07:55] LABS: ALBUMIN 2.5 g/dl (3.4-5.0); CALCIUM 7.9 mg/dL (8.5-10.1)
[2020-04-01 07:56] LABS: BLOOD UREA NITROGEN 56.2 mg/dL (7-18); MAGNESIUM 2.3 mg/dL (1.8-2.4)
[2020-04-01 07:58] LABS: CREATININE 4.5 mg/dL (0.55-1.3); PHOSPHOROUS 4.4 mg/dL (2.5-4.9)
[2020-04-01 07:59] LABS: BILIRUBIN,TOTAL 0.3 mg/dL (0.2-1); TOT PROT 5.4 g/dl (6.4-8.2)
[2020-04-01] MEDS ORDERED: hydrALAZINE HCL 50 MG TABLET (FP) PO SCH (08:11)
[2020-04-01] MEDS ORDERED: POTASSIUM CHLORIDE TABS 20 MEQ TABLET.ER (FP) PO ONE ×2 (08:15→08:27)
[2020-04-01] MEDS: SPIRONOLACTONE 25 MG TABLET PO SCH (09:01)
[2020-04-01] MEDS: ASPIRIN 81 MG CHEWABLE TABLETS PO SCH (09:01)
[2020-04-01] MEDS: TAMSULOSIN HCL 0.4 MG CAP PO SCH (09:01)
[2020-04-01] MEDS: BACITRACIN 15 GM TUBE TOPICAL OINTMENT TP SCH (09:01)
[2020-04-01] MEDS: GABAPENTIN 100 MG CAPSULE PO SCH ×2 (09:01→21:28)
[2020-04-01] MEDS: CLOPIDOGREL BISULFATE 75 MG TABLET (FP) PO SCH (09:02)
[2020-04-01] MEDS: amLODIPine BESYLATE 10 MG TABLET (FP) PO SCH (09:02)
[2020-04-01] MEDS: HEPARIN NA (PORCINE) 5,000 UNITS/ML 1ML VIAL SQ SCH ×2 (09:02→21:27)
[2020-04-01] MEDS ORDERED: ERGOCALCIFEROL (VIT D2) 50,000 UNIT (1.25 MG) CAPSULE PO SCH (10:00)
[2020-04-01] MEDS ORDERED: cloNIDine-TTS 0.3 MG /24 HRS PATCH.TDWK TD SCH (10:00)
[2020-04-01] MEDS ORDERED: PT OWN MED DRAWER 7, Y5N ONE (10:55)
[2020-04-01] MEDS ORDERED: SODIUM CHLORIDE 1,000 ML IV SCH (14:23)
[2020-04-01 16:47] LABS: HEMATOCRIT 21.9 % (35.4-49); HEMOGLOBIN 7.2 GM/dL (11.7-16.9); MCH 27.6 pg (25.7-33.7); MCHC 32.9 g/dl (32.0-35.9); MEAN CELL VOLUME 83.8 fl (80-96); MEAN PLT VOLUME 8.9 fl (7.5-11.1); PLATELET COUNT 206 K/MM3 (134-434); RBC 2.61 M/mm3 (4.00-5.60); RDW 12.9 % (11.9-15.9); WHITE BLOOD COUNT 6.9 K/mm3 (4.0-10.0)
[2020-04-01] MEDS: ATORVASTATIN CA 40 MG TABLET (FP) PO SCH (21:28)
[2020-04-02] MEDS: INSULIN (LEVEMIR) 100 UNITS/ML UNITS SQ SCH ×2 (06:42→22:00)
[2020-04-02] MEDS: LABETALOL HCL 200 MG TABLET (FP) PO SCH ×3 (06:42→22:02)
[2020-04-02] MEDS: hydrALAZINE HCL 50 MG TABLET (FP) PO SCH ×3 (06:42→22:01)
[2020-04-02] MEDS: INSULIN SLIDING SCALE (NOVOLOG) 1 VIAL SQ SCH ×4 (06:45→22:00)
[2020-04-02] MEDS: ASPIRIN 81 MG CHEWABLE TABLETS PO SCH (09:35)
[2020-04-02] MEDS: CLOPIDOGREL BISULFATE 75 MG TABLET (FP) PO SCH (09:35)
[2020-04-02] MEDS: GABAPENTIN 100 MG CAPSULE PO SCH ×2 (09:35→22:02)
[2020-04-02] MEDS: amLODIPine BESYLATE 10 MG TABLET (FP) PO SCH (09:35)
[2020-04-02] MEDS: TAMSULOSIN HCL 0.4 MG CAP PO SCH (09:35)
[2020-04-02] MEDS: SPIRONOLACTONE 25 MG TABLET PO SCH (09:35)
[2020-04-02] MEDS: HEPARIN NA (PORCINE) 5,000 UNITS/ML 1ML VIAL SQ SCH ×2 (09:36→22:26)
[2020-04-02] MEDS: BACITRACIN 15 GM TUBE TOPICAL OINTMENT TP SCH (09:36)
[2020-04-02] MEDS ORDERED: SODIUM CHLORIDE 0.9% 500 ML INFUS.BAG IV ONE (11:29)
[2020-04-02] MEDS ORDERED: SODIUM CHLORIDE 1,000 ML IV SCH (11:30)
[2020-04-02 12:14] LABS: HEMATOCRIT 20.9 % (35.4-49); MCH 27.8 pg (25.7-33.7); MCHC 33.3 g/dl (32.0-35.9); MEAN CELL VOLUME 83.4 fl (80-96); MEAN PLT VOLUME 8.4 fl (7.5-11.1); PLATELET COUNT 200 K/MM3 (134-434); RBC 2.51 M/mm3 (4.00-5.60); RDW 13.2 % (11.9-15.9); WHITE BLOOD COUNT 5.5 K/mm3 (4.0-10.0)
[2020-04-02 14:12] LABS: POTASSIUM 3.8 mmol/L (3.5-5.1)
[2020-04-02 14:14] LABS: BLOOD UREA NITROGEN 49.9 mg/dL (7-18)
[2020-04-02] MEDS: FLUDROCORTISONE ACETATE 0.1 MG TABLET (FP) PO SCH (15:55)
[2020-04-02] MEDS: ATORVASTATIN CA 40 MG TABLET (FP) PO SCH (22:02)
[2020-04-03] MEDS: hydrALAZINE HCL 50 MG TABLET (FP) PO SCH ×3 (06:30→21:51)
[2020-04-03] MEDS: LABETALOL HCL 200 MG TABLET (FP) PO SCH ×3 (06:30→21:51)
[2020-04-03] MEDS: INSULIN SLIDING SCALE (NOVOLOG) 1 VIAL SQ SCH ×4 (06:43→22:21)
[2020-04-03] MEDS: INSULIN (LEVEMIR) 100 UNITS/ML UNITS SQ SCH ×2 (06:44→22:21)
[2020-04-03] MEDS: TAMSULOSIN HCL 0.4 MG CAP PO SCH (08:36)
[2020-04-03] MEDS: FLUDROCORTISONE ACETATE 0.1 MG TABLET (FP) PO SCH (09:51)
[2020-04-03] MEDS: GABAPENTIN 100 MG CAPSULE PO SCH ×2 (09:51→21:52)
[2020-04-03] MEDS: HEPARIN NA (PORCINE) 5,000 UNITS/ML 1ML VIAL SQ SCH ×3 (09:51→21:50)
[2020-04-03] MEDS: amLODIPine BESYLATE 10 MG TABLET (FP) PO SCH (09:51)
[2020-04-03] MEDS: ASPIRIN 81 MG CHEWABLE TABLETS PO SCH (09:51)
[2020-04-03] MEDS: SPIRONOLACTONE 25 MG TABLET PO SCH (09:51)
[2020-04-03] MEDS: BACITRACIN 15 GM TUBE TOPICAL OINTMENT TP SCH (09:52)
[2020-04-03] MEDS: CLOPIDOGREL BISULFATE 75 MG TABLET (FP) PO SCH (09:53)
[2020-04-03 10:04] LABS: HEMATOCRIT 20.9 % (35.4-49); MCH 26.8 pg (25.7-33.7); MCHC 32.1 g/dl (32.0-35.9); MEAN CELL VOLUME 83.5 fl (80-96); MEAN PLT VOLUME 8.3 fl (7.5-11.1); PLATELET COUNT 202 K/MM3 (134-434); RBC 2.51 M/mm3 (4.00-5.60); RDW 12.6 % (11.9-15.9); WHITE BLOOD COUNT 5.1 K/mm3 (4.0-10.0)
[2020-04-03 10:29] LABS: POTASSIUM 4.1 mmol/L (3.5-5.1)
[2020-04-03 10:31] LABS: ALBUMIN 2.5 g/dl (3.4-5.0); CALCIUM 8.1 mg/dL (8.5-10.1)
[2020-04-03 10:33] LABS: BLOOD UREA NITROGEN 53.3 mg/dL (7-18)
[2020-04-03 10:35] LABS: HEMOGLOBIN 6.7 GM/dL (11.7-16.9)
[2020-04-03 10:36] LABS: CREATININE 3.8 mg/dL (0.55-1.3); TOT PROT 5.3 g/dl (6.4-8.2)
[2020-04-03 10:38] LABS: BILIRUBIN,TOTAL 0.4 mg/dL (0.2-1)
[2020-04-03] MEDS ORDERED: SODIUM CHLORIDE 1,000 ML IV SCH (12:45)
[2020-04-03] MEDS: ATORVASTATIN CA 40 MG TABLET (FP) PO SCH (21:50)
[2020-04-04] MEDS: hydrALAZINE HCL 50 MG TABLET (FP) PO SCH ×2 (05:50→13:31)
[2020-04-04] MEDS: LABETALOL HCL 200 MG TABLET (FP) PO SCH ×2 (05:50→13:31)
[2020-04-04] MEDS: INSULIN (LEVEMIR) 100 UNITS/ML UNITS SQ SCH (06:06)
[2020-04-04] MEDS: INSULIN SLIDING SCALE (NOVOLOG) 1 VIAL SQ SCH ×2 (06:07→11:43)
[2020-04-04 07:50] LABS: HEMATOCRIT 26.8 % (35.4-49); HEMOGLOBIN 8.7 GM/dL (11.7-16.9); MCH 27.6 pg (25.7-33.7); MCHC 32.7 g/dl (32.0-35.9); MEAN CELL VOLUME 84.4 fl (80-96); MEAN PLT VOLUME 8.5 fl (7.5-11.1); PLATELET COUNT 213 K/MM3 (134-434); RBC 3.17 M/mm3 (4.00-5.60); RDW 12.9 % (11.9-15.9); WHITE BLOOD COUNT 5.4 K/mm3 (4.0-10.0)
[2020-04-04] MEDS: amLODIPine BESYLATE 10 MG TABLET (FP) PO SCH (09:26)
[2020-04-04] MEDS: BACITRACIN 15 GM TUBE TOPICAL OINTMENT TP SCH (09:26)
[2020-04-04] MEDS: HEPARIN NA (PORCINE) 5,000 UNITS/ML 1ML VIAL SQ SCH ×2 (09:27→09:32)
[2020-04-04] MEDS: TAMSULOSIN HCL 0.4 MG CAP PO SCH (09:27)
[2020-04-04] MEDS: FLUDROCORTISONE ACETATE 0.1 MG TABLET (FP) PO SCH (09:27)
[2020-04-04] MEDS: GABAPENTIN 100 MG CAPSULE PO SCH (09:27)
[2020-04-04] MEDS: SPIRONOLACTONE 25 MG TABLET PO SCH (09:27)
[2020-04-04] MEDS: CLOPIDOGREL BISULFATE 75 MG TABLET (FP) PO SCH (09:27)
[2020-04-04] MEDS: ASPIRIN 81 MG CHEWABLE TABLETS PO SCH (09:28)
[2020-04-04 13:14] VITALS: TEMP 97.5
[2020-04-04 13:15] VITALS: BP 150/95; PULSE 72
== END 2020-04-04 13:23 | disposition home or self-care (01) | DRG 204 ==
LOC: JER 12:47 → JERBED 16:41 → J4W 21:59
PROVIDERS: ATTEND Internal Medicine
PROC: 0HQ0XZZ Repair Scalp Skin, External Approach (ICD-10-PCS; principal; 2020-03-30)
PROC: 30233N1 Transfusion of Nonautologous Red Blood Cells into Peripheral Vein, Percutaneous Approach (ICD-10-PCS; 2020-04-03)
DX: I95.1 Orthostatic hypotension (principal); N18.5 Chronic kidney disease, stage 5; I50.32 Chronic diastolic (congestive) heart failure; E11.65 Type 2 diabetes mellitus with hyperglycemia; I69.354 Hemiplegia and hemiparesis following cerebral infarction affecting left non-dominant side; S01.01XA Laceration without foreign body of scalp, initial encounter; I13.2 Hypertensive heart and chronic kidney disease with heart failure and with stage 5 chronic kidney disease, or end stage renal disease; E11.22 Type 2 diabetes mellitus with diabetic chronic kidney disease; N17.9 Acute kidney failure, unspecified; N40.0 Benign prostatic hyperplasia without lower urinary tract symptoms; E78.5 Hyperlipidemia, unspecified; D64.9 Anemia, unspecified; I25.10 Atherosclerotic heart disease of native coronary artery without angina pectoris; W19.XXXA Unspecified fall, initial encounter; Y93.89 Activity, other specified; Y92.090 Kitchen in other non-institutional residence as the place of occurrence of the external cause; Y99.9 Unspecified external cause status
CPT/HCPCS: 36415; 36430; 70450-TC; 71045-TC-FY; 76775-TC; 76856-TC; 80048; 80053; 81003; 82436; 82728; 82962; 83036; 83540; 83550; 83735; 83880; 84100; 84132; 84133; 84300; 84484; 85025; 85027; 85610; 85730; 86850; 86900; 86901; 86922; 90670; 90715; 93005; 93010; 93880-TC; 97116-GP; 97161-GP; 99285-25; C9803; J1644; P9058; U0003

== ENCOUNTER 2020-04-29 09:13 | Emergency (ER) | payer OTHER | END 2020-04-29 10:34 | disposition home or self-care (01) | LOC: JERFT 09:13 | DX: Z48.02 Encounter for removal of sutures (principal) | CPT/HCPCS: 99281-25 ==

== ENCOUNTER 2020-07-14 20:27 | Inpatient (IN) | payer OTHER ==
[2020-07-14] MEDS ORDERED: FUROSEMIDE 40 MG/4 ML INJECTABLE VIAL IVPUSH ONE ×2 (21:28→21:30)
[2020-07-14] MEDS ORDERED: NITROGLYCERIN SUBLINGUAL 1/150 0.4 MG TAB SL ONE (21:28)
[2020-07-14] MEDS ORDERED: NITROGLYCERIN SUBLINGUAL 1/150 0.4 MG TAB ONE (21:31)
[2020-07-14] MEDS ORDERED: NITROGLYCERIN 2% OINTMENT - 1GM PACKET TD ONE ×2 (21:31→21:33)
[2020-07-14] MEDS ORDERED: FUROSEMIDE 40 MG/4 ML INJECTABLE VIAL ONE (21:31)
[2020-07-14] MEDS ORDERED: ALBUTEROL SO4 2.5/IPRATROPIUM 0.5 INH SOL 3 ML VIAL.NEB. NEB ONE ×2 (21:32)
[2020-07-14] MEDS ORDERED: methylPREDNISolone NA SUCC 125 MG/2 ML VIAL ONE (21:32)
[2020-07-14] MEDS ORDERED: methylPREDNISolone NA SUCC 125 MG/2 ML VIAL IVPUSH ONE (21:44)
[2020-07-14 22:03] LABS: BASO % 0.7 % (0-2.0); EOS % 2.5 % (0-4.5); HEMATOCRIT 19.2 % (35.4-49); LYMPH % 7.7 % (8-40); MCH 27.3 pg (25.7-33.7); MCHC 33.1 g/dl (32.0-35.9); MEAN CELL VOLUME 82.3 fl (80-96); MEAN PLT VOLUME 8.8 fl (7.5-11.1); MONO % 5.8 % (3.8-10.2); NEUT % 83.3 % (42.8-82.8); PLATELET COUNT 302 K/MM3 (134-434); RBC 2.33 M/mm3 (4.00-5.60); RDW 14.3 % (11.9-15.9); WHITE BLOOD COUNT 6.6 K/mm3 (4.0-10.0)
[2020-07-14 22:15] LABS: HEMOGLOBIN 6.4 GM/dL (11.7-16.9)
[2020-07-14 22:29] LABS: ALBUMIN 2.5 g/dl (3.4-5.0); BLOOD UREA NITROGEN 45.7 mg/dL (7-18); CALCIUM 8.7 mg/dL (8.5-10.1); MAGNESIUM 2.3 mg/dL (1.8-2.4)
[2020-07-14 22:32] LABS: CREATININE 4.6 mg/dL (0.55-1.3); PHOSPHOROUS 4.2 mg/dL (2.5-4.9)
[2020-07-14 22:33] LABS: BILIRUBIN,TOTAL 0.4 mg/dL (0.2-1); TOT PROT 6.1 g/dl (6.4-8.2)
[2020-07-14 22:37] LABS: N-TERMINAL BNP 26898.3 pg/ml (5-125)
[2020-07-14] MEDS ORDERED: hydrALAZINE HCL 20 MG/ML VIAL IVPUSH ONE (23:34)
[2020-07-14] MEDS ORDERED: hydrALAZINE HCL 20 MG/ML VIAL ONE (23:37)
[2020-07-15] MEDS ORDERED: NIFEdipine E.R. 30 MG TABLET PO ONE (00:27)
[2020-07-15] MEDS ORDERED: LABETALOL HCL INJECTION 1,000 MG in DEXTROSE 5%-WATER - 800 ML IV SCH (00:30)
[2020-07-15] MEDS ORDERED: FUROSEMIDE 40 MG/4 ML INJECTABLE VIAL IVPUSH ONE (05:29)
[2020-07-15] MEDS ORDERED: hydrALAZINE HCL 50 MG TABLET (FP) PO SCH (07:00)
[2020-07-15] MEDS ORDERED: hydrALAZINE HCL 25 MG TABLET (FP) ONE (08:12)
[2020-07-15] MEDS ORDERED: TAMSULOSIN HCL 0.4 MG CAP ONE (08:15)
[2020-07-15] MEDS: TAMSULOSIN HCL 0.4 MG CAP PO SCH (08:15)
[2020-07-15] MEDS: cloNIDine-TTS 0.3 MG /24 HRS PATCH.TDWK TD SCH (09:15)
[2020-07-15] MEDS: SODIUM BICARBONATE 650 MG TABLET PO SCH ×4 (09:15→17:41)
[2020-07-15] MEDS ORDERED: FUROSEMIDE 100 MG/10 ML INJECTABLE VIAL IVPB SCH (10:00)
[2020-07-15] MEDS ORDERED: amLODIPine BESYLATE 10 MG TABLET (FP) PO SCH (10:00)
[2020-07-15] MEDS ORDERED: FLUDROCORTISONE ACETATE 0.1 MG TABLET (FP) PO SCH (10:00)
[2020-07-15] MEDS ORDERED: FUROSEMIDE 40 MG/4 ML INJECTABLE VIAL IVPUSH SCH (10:00)
[2020-07-15] MEDS ORDERED: ASPIRIN 81 MG CHEWABLE TABLETS ONE (10:30)
[2020-07-15] MEDS ORDERED: amLODIPine BESYLATE 5 MG TABLET (FP) ONE (10:31)
[2020-07-15] MEDS ORDERED: CLOPIDOGREL BISULFATE 75 MG TABLET (FP) ONE (10:32)
[2020-07-15] MEDS ORDERED: GABAPENTIN 100 MG CAPSULE ONE (10:32)
[2020-07-15] MEDS ORDERED: FUROSEMIDE 40 MG/4 ML INJECTABLE VIAL ONE (10:32)
[2020-07-15] MEDS: ASPIRIN 81 MG CHEWABLE TABLETS PO SCH (10:33)
[2020-07-15] MEDS: CLOPIDOGREL BISULFATE 75 MG TABLET (FP) PO SCH (10:33)
[2020-07-15] MEDS: amLODIPine BESYLATE 5 MG TABLET (FP) PO SCH (10:33)
[2020-07-15] MEDS: GABAPENTIN 100 MG CAPSULE PO SCH ×2 (10:33→21:07)
[2020-07-15] MEDS ORDERED: PT OWN MED DRAWER 7, Y5N ONE (10:34)
[2020-07-15] MEDS: OXYBUTYNIN CHLORIDE 5 MG TABLET PO SCH ×2 (10:34→21:09)
[2020-07-15] MEDS: NICARDIPINE 25 MG in DEXTROSE 5%-WATER - 240 ML IVPB SCH (11:59)
[2020-07-15 12:06] LABS: BASO % 0.4 % (0-2.0); HEMATOCRIT 21.6 % (35.4-49); HEMOGLOBIN 7.3 GM/dL (11.7-16.9); LYMPH % 5.5 % (8-40); MCH 28.1 pg (25.7-33.7); MCHC 33.7 g/dl (32.0-35.9); MEAN CELL VOLUME 83.5 fl (80-96); MONO % 5.5 % (3.8-10.2); NEUT % 88.6 % (42.8-82.8); PLATELET COUNT 266 K/MM3 (134-434); RBC 2.59 M/mm3 (4.00-5.60); RDW 13.9 % (11.9-15.9); WHITE BLOOD COUNT 6.2 K/mm3 (4.0-10.0)
[2020-07-15 12:34] LABS: CALCIUM 8.1 mg/dL (8.5-10.1)
[2020-07-15 12:36] LABS: ALBUMIN 2.2 g/dl (3.4-5.0); BLOOD UREA NITROGEN 50.5 mg/dL (7-18); MAGNESIUM 2.1 mg/dL (1.8-2.4)
[2020-07-15 12:38] LABS: CREATININE 4.6 mg/dL (0.55-1.3); PHOSPHOROUS 4.6 mg/dL (2.5-4.9)
[2020-07-15 12:39] LABS: BILIRUBIN,TOTAL 0.6 mg/dL (0.2-1); TOT PROT 5.6 g/dl (6.4-8.2)
[2020-07-15] MEDS ORDERED: hydrALAZINE HCL 25 MG TABLET (FP) PO SCH ×2 (14:00)
[2020-07-15] MEDS: HEPARIN NA (PORCINE) 5,000 UNITS/ML 1ML VIAL SQ SCH ×2 (15:23→21:07)
[2020-07-15] MEDS: LABETALOL HCL 200 MG TABLET (FP) PO SCH ×2 (15:23→21:04)
[2020-07-15] MEDS: hydrALAZINE HCL 25 MG TABLET (FP) PO SCH (21:03)
[2020-07-15] MEDS: MUPIROCIN 2% TOPICAL OINTMENT FOR DECOLONIZATION NS SCH (21:03)
[2020-07-15] MEDS: CHLORHEXIDINE GLUCONATE 4% CLEANSER FOR DECOLONIZATION TP SCH (21:04)
[2020-07-15] MEDS: ATORVASTATIN CA 80 MG TABLET (FP) PO SCH (21:07)
[2020-07-15] MEDS: INSULIN (LEVEMIR) 100 UNITS/ML UNITS SQ SCH (21:12)
[2020-07-15] MEDS ORDERED: methylPREDNISolone NA SUCC 125 MG/2 ML VIAL IVPUSH ONE (21:32)
[2020-07-15] MEDS ORDERED: LEVALBUTEROL HCL 0.31 MG/3 ML VIAL.NEB IH ONE (23:00)
[2020-07-16] MEDS: hydrALAZINE HCL 25 MG TABLET (FP) PO SCH (05:25)
[2020-07-16] MEDS: HEPARIN NA (PORCINE) 5,000 UNITS/ML 1ML VIAL SQ SCH ×3 (05:26→21:21)
[2020-07-16] MEDS: LABETALOL HCL 200 MG TABLET (FP) PO SCH ×3 (05:26→21:22)
[2020-07-16] MEDS: INSULIN SLIDING SCALE (NOVOLOG) 1 VIAL SQ SCH ×4 (06:35→21:36)
[2020-07-16 06:36] LABS: BASO % 0.6 % (0-2.0); EOS % 1.9 % (0-4.5); HEMATOCRIT 20.5 % (35.4-49); HEMOGLOBIN 7.1 GM/dL (11.7-16.9); LYMPH % 11.8 % (8-40); MCH 28.4 pg (25.7-33.7); MCHC 34.6 g/dl (32.0-35.9); MEAN CELL VOLUME 82.2 fl (80-96); MEAN PLT VOLUME 8.8 fl (7.5-11.1); MONO % 6.2 % (3.8-10.2); NEUT % 79.5 % (42.8-82.8); PLATELET COUNT 253 K/MM3 (134-434); RBC 2.49 M/mm3 (4.00-5.60); RDW 13.7 % (11.9-15.9); WHITE BLOOD COUNT 6.6 K/mm3 (4.0-10.0)
[2020-07-16 06:55] LABS: CALCIUM 8.2 mg/dL (8.5-10.1)
[2020-07-16 06:56] LABS: ALBUMIN 2.1 g/dl (3.4-5.0); BLOOD UREA NITROGEN 53.5 mg/dL (7-18)
[2020-07-16 06:59] LABS: CREATININE 5.2 mg/dL (0.55-1.3)
[2020-07-16 07:00] LABS: BILIRUBIN,TOTAL 0.4 mg/dL (0.2-1); PHOSPHOROUS 4.8 mg/dL (2.5-4.9)
[2020-07-16 07:01] LABS: TOT PROT 5.2 g/dl (6.4-8.2)
[2020-07-16] MEDS: amLODIPine BESYLATE 5 MG TABLET (FP) PO SCH (09:01)
[2020-07-16] MEDS: TAMSULOSIN HCL 0.4 MG CAP PO SCH (09:02)
[2020-07-16] MEDS: ASPIRIN 81 MG CHEWABLE TABLETS PO SCH (09:02)
[2020-07-16] MEDS: SODIUM BICARBONATE 650 MG TABLET PO SCH ×3 (09:02→17:34)
[2020-07-16] MEDS: CLOPIDOGREL BISULFATE 75 MG TABLET (FP) PO SCH (09:03)
[2020-07-16] MEDS: GABAPENTIN 100 MG CAPSULE PO SCH ×2 (09:03→21:22)
[2020-07-16] MEDS: OXYBUTYNIN CHLORIDE 5 MG TABLET PO SCH ×2 (09:04→21:21)
[2020-07-16] MEDS: MUPIROCIN 2% TOPICAL OINTMENT FOR DECOLONIZATION NS SCH ×2 (09:05→21:21)
[2020-07-16] MEDS: KCL 10 MEQ IVPB 10 MEQ/100 ML INFUS.BAG IVPB SCH ×3 (09:06→11:35)
[2020-07-16] MEDS: NICARDIPINE 25 MG in DEXTROSE 5%-WATER - 240 ML IVPB SCH ×2 (11:41→21:49)
[2020-07-16] MEDS: hydrALAZINE HCL 50 MG TABLET (FP) PO SCH ×2 (14:30→21:21)
[2020-07-16] MEDS: ATORVASTATIN CA 80 MG TABLET (FP) PO SCH (21:21)
[2020-07-16] MEDS: CHLORHEXIDINE GLUCONATE 4% CLEANSER FOR DECOLONIZATION TP SCH (21:21)
[2020-07-16] MEDS: INSULIN (LEVEMIR) 100 UNITS/ML UNITS SQ SCH (21:35)
[2020-07-17] MEDS ORDERED: niCARdipine HCL 25 MG/10 ML AMPUL IVPB ONE (02:02)
[2020-07-17] MEDS: NICARDIPINE 25 MG in DEXTROSE 5%-WATER - 240 ML IVPB SCH ×2 (02:11→13:46)
[2020-07-17] MEDS: LABETALOL HCL 200 MG TABLET (FP) PO SCH ×3 (05:53→21:27)
[2020-07-17] MEDS: HEPARIN NA (PORCINE) 5,000 UNITS/ML 1ML VIAL SQ SCH ×3 (05:53→21:26)
[2020-07-17] MEDS: hydrALAZINE HCL 50 MG TABLET (FP) PO SCH ×3 (05:53→21:26)
[2020-07-17] MEDS: INSULIN SLIDING SCALE (NOVOLOG) 1 VIAL SQ SCH ×4 (05:59→21:52)
[2020-07-17 06:46] LABS: CALCIUM 7.9 mg/dL (8.5-10.1)
[2020-07-17 06:47] LABS: ALBUMIN 2.1 g/dl (3.4-5.0); BLOOD UREA NITROGEN 61.1 mg/dL (7-18)
[2020-07-17 06:50] LABS: CREATININE 5.7 mg/dL (0.55-1.3)
[2020-07-17 06:51] LABS: BILIRUBIN,TOTAL 0.8 mg/dL (0.2-1); TOT PROT 5.1 g/dl (6.4-8.2)
[2020-07-17 08:11] LABS: HEMATOCRIT 20.8 % (35.4-49); MCH 27.8 pg (25.7-33.7); MCHC 33.1 g/dl (32.0-35.9); MEAN CELL VOLUME 84.1 fl (80-96); MEAN PLT VOLUME 9.4 fl (7.5-11.1); PLATELET COUNT 259 K/MM3 (134-434); RBC 2.47 M/mm3 (4.00-5.60); RDW 14.4 % (11.9-15.9); WHITE BLOOD COUNT 6.4 K/mm3 (4.0-10.0)
[2020-07-17 08:15] LABS: HEMOGLOBIN 6.9 GM/dL (11.7-16.9)
[2020-07-17] MEDS: CLOPIDOGREL BISULFATE 75 MG TABLET (FP) PO SCH (09:00)
[2020-07-17] MEDS: TAMSULOSIN HCL 0.4 MG CAP PO SCH (09:00)
[2020-07-17] MEDS: MUPIROCIN 2% TOPICAL OINTMENT FOR DECOLONIZATION NS SCH ×2 (09:00→21:26)
[2020-07-17] MEDS: ASPIRIN 81 MG CHEWABLE TABLETS PO SCH (09:00)
[2020-07-17] MEDS: OXYBUTYNIN CHLORIDE 5 MG TABLET PO SCH (09:00)
[2020-07-17] MEDS: GABAPENTIN 100 MG CAPSULE PO SCH ×2 (09:00→21:26)
[2020-07-17] MEDS: amLODIPine BESYLATE 5 MG TABLET (FP) PO SCH (09:01)
[2020-07-17] MEDS ORDERED: NIFEdipine E.R. 30 MG TABLET PO SCH (10:00)
[2020-07-17] MEDS: POLYETHYLENE GLYCOL 3350 119 GM BTL PO SCH (17:59)
[2020-07-17] MEDS: BISACODYL 10 MG SUPP.RECT PR PRN (18:43)
[2020-07-17] MEDS: ATORVASTATIN CA 80 MG TABLET (FP) PO SCH (21:26)
[2020-07-17] MEDS: CHLORHEXIDINE GLUCONATE 4% CLEANSER FOR DECOLONIZATION TP SCH (21:26)
[2020-07-17 21:34] LABS: BASO % 0.7 % (0-2.0); HEMATOCRIT 24.4 % (35.4-49); LYMPH % 7.3 % (8-40); MCH 27.5 pg (25.7-33.7); MCHC 32.9 g/dl (32.0-35.9); MEAN CELL VOLUME 83.5 fl (80-96); MEAN PLT VOLUME 9.4 fl (7.5-11.1); MONO % 6.4 % (3.8-10.2); NEUT % 82.6 % (42.8-82.8); PLATELET COUNT 262 K/MM3 (134-434); RBC 2.92 M/mm3 (4.00-5.60); RDW 14.5 % (11.9-15.9); WHITE BLOOD COUNT 7.1 K/mm3 (4.0-10.0)
[2020-07-17] MEDS: INSULIN (LEVEMIR) 100 UNITS/ML UNITS SQ SCH (21:52)
[2020-07-18] MEDS: hydrALAZINE HCL 50 MG TABLET (FP) PO SCH ×3 (06:06→21:35)
[2020-07-18] MEDS: HEPARIN NA (PORCINE) 5,000 UNITS/ML 1ML VIAL SQ SCH ×3 (06:07→21:36)
[2020-07-18] MEDS: LABETALOL HCL 200 MG TABLET (FP) PO SCH ×3 (06:07→21:37)
[2020-07-18] MEDS: INSULIN SLIDING SCALE (NOVOLOG) 1 VIAL SQ SCH ×4 (06:12→21:35)
[2020-07-18 06:41] LABS: HEMATOCRIT 24.7 % (35.4-49); HEMOGLOBIN 8.4 GM/dL (11.7-16.9); MCH 28.2 pg (25.7-33.7); MCHC 34.1 g/dl (32.0-35.9); MEAN CELL VOLUME 82.6 fl (80-96); MEAN PLT VOLUME 8.9 fl (7.5-11.1); PLATELET COUNT 280 K/MM3 (134-434); RBC 2.99 M/mm3 (4.00-5.60); RDW 14.9 % (11.9-15.9); WHITE BLOOD COUNT 10.5 K/mm3 (4.0-10.0)
[2020-07-18 07:17] LABS: ALBUMIN 2.2 g/dl (3.4-5.0); BLOOD UREA NITROGEN 67.1 mg/dL (7-18); CALCIUM 8.2 mg/dL (8.5-10.1); MAGNESIUM 2.1 mg/dL (1.8-2.4)
[2020-07-18 07:20] LABS: CREATININE 5.7 mg/dL (0.55-1.3)
[2020-07-18 07:21] LABS: PHOSPHOROUS 5.2 mg/dL (2.5-4.9)
[2020-07-18 07:22] LABS: BILIRUBIN,TOTAL 0.6 mg/dL (0.2-1); TOT PROT 5.3 g/dl (6.4-8.2)
[2020-07-18] MEDS: TAMSULOSIN HCL 0.4 MG CAP PO SCH (08:28)
[2020-07-18] MEDS ORDERED: NIFEdipine E.R 60 MG TABLET PO SCH (10:00)
[2020-07-18] MEDS: POLYETHYLENE GLYCOL 3350 119 GM BTL PO SCH (10:28)
[2020-07-18] MEDS: CLOPIDOGREL BISULFATE 75 MG TABLET (FP) PO SCH (10:28)
[2020-07-18] MEDS: MUPIROCIN 2% TOPICAL OINTMENT FOR DECOLONIZATION NS SCH ×2 (10:28→21:36)
[2020-07-18] MEDS: ASPIRIN 81 MG CHEWABLE TABLETS PO SCH (10:28)
[2020-07-18] MEDS: GABAPENTIN 100 MG CAPSULE PO SCH ×2 (10:28→21:37)
[2020-07-18] MEDS ORDERED: NIFEdipine E.R. 30 MG TABLET PO ONE (10:45)
[2020-07-18] MEDS: CHLORHEXIDINE GLUCONATE 4% CLEANSER FOR DECOLONIZATION TP SCH (21:37)
[2020-07-18] MEDS: ATORVASTATIN CA 80 MG TABLET (FP) PO SCH (21:37)
[2020-07-18] MEDS: INSULIN (LEVEMIR) 100 UNITS/ML UNITS SQ SCH (21:41)
[2020-07-19] MEDS: NICARDIPINE 25 MG in DEXTROSE 5%-WATER - 240 ML IVPB SCH ×3 (02:00→19:08)
[2020-07-19] MEDS: hydrALAZINE HCL 50 MG TABLET (FP) PO SCH ×3 (06:50→21:23)
[2020-07-19] MEDS: HEPARIN NA (PORCINE) 5,000 UNITS/ML 1ML VIAL SQ SCH ×3 (06:50→21:23)
[2020-07-19] MEDS: INSULIN SLIDING SCALE (NOVOLOG) 1 VIAL SQ SCH ×4 (06:50→21:22)
[2020-07-19] MEDS: LABETALOL HCL 200 MG TABLET (FP) PO SCH ×3 (06:50→21:24)
[2020-07-19] MEDS: ASPIRIN 81 MG CHEWABLE TABLETS PO SCH (09:04)
[2020-07-19] MEDS: NIFEdipine E.R. 90 MG TABLET PO SCH (09:04)
[2020-07-19] MEDS: CLOPIDOGREL BISULFATE 75 MG TABLET (FP) PO SCH (09:05)
[2020-07-19] MEDS: TAMSULOSIN HCL 0.4 MG CAP PO SCH (09:05)
[2020-07-19] MEDS: GABAPENTIN 100 MG CAPSULE PO SCH ×2 (09:05→21:23)
[2020-07-19] MEDS: MUPIROCIN 2% TOPICAL OINTMENT FOR DECOLONIZATION NS SCH ×2 (10:23→21:23)
[2020-07-19] MEDS: ISOSORBIDE MONONITRATE 30 MG TAB.SR.24H (FP) PO SCH (10:30)
[2020-07-19] MEDS: POLYETHYLENE GLYCOL 3350 119 GM BTL PO SCH (11:54)
[2020-07-19 13:38] LABS: HEMATOCRIT 23.8 % (35.4-49); MCH 28.2 pg (25.7-33.7); MCHC 33.6 g/dl (32.0-35.9); MEAN CELL VOLUME 83.9 fl (80-96); MEAN PLT VOLUME 9.2 fl (7.5-11.1); PLATELET COUNT 265 K/MM3 (134-434); RBC 2.84 M/mm3 (4.00-5.60); RDW 14.8 % (11.9-15.9); WHITE BLOOD COUNT 7.3 K/mm3 (4.0-10.0)
[2020-07-19 14:00] LABS: BLOOD UREA NITROGEN 78.3 mg/dL (7-18); CALCIUM 8.4 mg/dL (8.5-10.1); MAGNESIUM 2.4 mg/dL (1.8-2.4)
[2020-07-19 14:03] LABS: CREATININE 5.9 mg/dL (0.55-1.3)
[2020-07-19 14:04] LABS: PHOSPHOROUS 5.3 mg/dL (2.5-4.9)
[2020-07-19 14:05] LABS: BILIRUBIN,TOTAL 0.4 mg/dL (0.2-1); TOT PROT 5.1 g/dl (6.4-8.2)
[2020-07-19] MEDS: ATORVASTATIN CA 80 MG TABLET (FP) PO SCH (21:23)
[2020-07-19] MEDS: INSULIN (LEVEMIR) 100 UNITS/ML UNITS SQ SCH (21:23)
[2020-07-19] MEDS: CHLORHEXIDINE GLUCONATE 4% CLEANSER FOR DECOLONIZATION TP SCH (21:24)
[2020-07-20] MEDS: BISACODYL 10 MG SUPP.RECT PR PRN (01:28)
[2020-07-20] MEDS: NICARDIPINE 25 MG in DEXTROSE 5%-WATER - 240 ML IVPB SCH ×3 (04:44→21:48)
[2020-07-20] MEDS: LABETALOL HCL 200 MG TABLET (FP) PO SCH ×3 (06:10→21:56)
[2020-07-20] MEDS: hydrALAZINE HCL 50 MG TABLET (FP) PO SCH ×3 (06:11→21:55)
[2020-07-20] MEDS: HEPARIN NA (PORCINE) 5,000 UNITS/ML 1ML VIAL SQ SCH ×3 (06:11→21:55)
[2020-07-20] MEDS: INSULIN SLIDING SCALE (NOVOLOG) 1 VIAL SQ SCH ×3 (06:13→22:04)
[2020-07-20 07:43] LABS: MCH 28.7 pg (25.7-33.7); MCHC 34.7 g/dl (32.0-35.9); MEAN CELL VOLUME 82.5 fl (80-96); PLATELET COUNT 244 K/MM3 (134-434); RBC 2.79 M/mm3 (4.00-5.60); RDW 14.8 % (11.9-15.9); WHITE BLOOD COUNT 5.9 K/mm3 (4.0-10.0)
[2020-07-20 07:54] LABS: CALCIUM 8.2 mg/dL (8.5-10.1)
[2020-07-20 07:55] LABS: ALBUMIN 1.9 g/dl (3.4-5.0); MAGNESIUM 2.3 mg/dL (1.8-2.4)
[2020-07-20 07:58] LABS: CREATININE 6.1 mg/dL (0.55-1.3); PHOSPHOROUS 5.5 mg/dL (2.5-4.9)
[2020-07-20 08:00] LABS: BILIRUBIN,TOTAL 0.5 mg/dL (0.2-1)
[2020-07-20] MEDS: TAMSULOSIN HCL 0.4 MG CAP PO SCH (08:35)
[2020-07-20] MEDS: ASPIRIN 81 MG CHEWABLE TABLETS PO SCH (09:44)
[2020-07-20] MEDS: ISOSORBIDE MONONITRATE 30 MG TAB.SR.24H (FP) PO SCH (11:47)
[2020-07-20] MEDS: MUPIROCIN 2% TOPICAL OINTMENT FOR DECOLONIZATION NS SCH (11:47)
[2020-07-20] MEDS: GABAPENTIN 100 MG CAPSULE PO SCH ×2 (11:48→21:56)
[2020-07-20] MEDS: POLYETHYLENE GLYCOL 3350 119 GM BTL PO SCH (11:48)
[2020-07-20] MEDS: CLOPIDOGREL BISULFATE 75 MG TABLET (FP) PO SCH (11:48)
[2020-07-20] MEDS: NIFEdipine E.R. 90 MG TABLET PO SCH (11:48)
[2020-07-20 14:25] VITALS: BMI 29.5
[2020-07-20] MEDS: CHLORHEXIDINE GLUCONATE 4% CLEANSER FOR DECOLONIZATION TP SCH (21:56)
[2020-07-20] MEDS: ATORVASTATIN CA 80 MG TABLET (FP) PO SCH (21:56)
[2020-07-20] MEDS: INSULIN (LEVEMIR) 100 UNITS/ML UNITS SQ SCH (22:03)
[2020-07-21] MEDS: BISACODYL 10 MG SUPP.RECT PR PRN (02:22)
[2020-07-21] MEDS: hydrALAZINE HCL 50 MG TABLET (FP) PO SCH ×3 (05:30→22:30)
[2020-07-21] MEDS: LABETALOL HCL 200 MG TABLET (FP) PO SCH ×3 (05:30→22:30)
[2020-07-21] MEDS: HEPARIN NA (PORCINE) 5,000 UNITS/ML 1ML VIAL SQ SCH ×3 (05:30→22:30)
[2020-07-21 06:50] LABS: EOS % 4.3 % (0-4.5); HEMATOCRIT 22.5 % (35.4-49); HEMOGLOBIN 7.7 GM/dL (11.7-16.9); LYMPH % 9.7 % (8-40); MCH 28.3 pg (25.7-33.7); MCHC 34.1 g/dl (32.0-35.9); MEAN PLT VOLUME 8.8 fl (7.5-11.1); MONO % 7.1 % (3.8-10.2); NEUT % 77.9 % (42.8-82.8); PLATELET COUNT 253 K/MM3 (134-434); RDW 14.7 % (11.9-15.9); WHITE BLOOD COUNT 6.5 K/mm3 (4.0-10.0)
[2020-07-21 07:03] LABS: CALCIUM 8.2 mg/dL (8.5-10.1); MAGNESIUM 2.3 mg/dL (1.8-2.4)
[2020-07-21 07:07] LABS: PHOSPHOROUS 5.4 mg/dL (2.5-4.9)
[2020-07-21] MEDS: INSULIN SLIDING SCALE (NOVOLOG) 1 VIAL SQ SCH ×4 (07:33→22:30)
[2020-07-21] MEDS ORDERED: NIFEdipine E.R. 30 MG TABLET PO ONE (12:08)
[2020-07-21] MEDS: TAMSULOSIN HCL 0.4 MG CAP PO SCH (12:48)
[2020-07-21] MEDS: ASPIRIN 81 MG CHEWABLE TABLETS PO SCH (12:48)
[2020-07-21] MEDS: ISOSORBIDE MONONITRATE 30 MG TAB.SR.24H (FP) PO SCH (12:48)
[2020-07-21] MEDS: GABAPENTIN 100 MG CAPSULE PO SCH ×2 (12:49→22:30)
[2020-07-21] MEDS: CLOPIDOGREL BISULFATE 75 MG TABLET (FP) PO SCH (12:50)
[2020-07-21] MEDS: NIFEdipine E.R. 90 MG TABLET PO SCH (12:57)
[2020-07-21] MEDS: NICARDIPINE 25 MG in DEXTROSE 5%-WATER - 240 ML IVPB SCH ×2 (12:58→20:00)
[2020-07-21] MEDS: FUROSEMIDE 40 MG/4 ML INJECTABLE VIAL IVPUSH SCH (13:06)
[2020-07-21] MEDS: POLYETHYLENE GLYCOL 3350 119 GM BTL PO SCH (15:03)
[2020-07-21] MEDS: CHLORHEXIDINE GLUCONATE 4% CLEANSER FOR DECOLONIZATION TP SCH (22:30)
[2020-07-21] MEDS: INSULIN (LEVEMIR) 100 UNITS/ML UNITS SQ SCH (22:30)
[2020-07-21] MEDS: ATORVASTATIN CA 80 MG TABLET (FP) PO SCH (22:30)
[2020-07-22] MEDS: NICARDIPINE 25 MG in DEXTROSE 5%-WATER - 240 ML IVPB SCH ×2 (03:15→12:00)
[2020-07-22] MEDS: INSULIN SLIDING SCALE (NOVOLOG) 1 VIAL SQ SCH ×4 (06:02→22:14)
[2020-07-22] MEDS: HEPARIN NA (PORCINE) 5,000 UNITS/ML 1ML VIAL SQ SCH ×3 (06:03→21:27)
[2020-07-22] MEDS: hydrALAZINE HCL 50 MG TABLET (FP) PO SCH ×3 (06:03→21:27)
[2020-07-22] MEDS: FUROSEMIDE 40 MG/4 ML INJECTABLE VIAL IVPUSH SCH ×2 (06:04→14:00)
[2020-07-22] MEDS: LABETALOL HCL 200 MG TABLET (FP) PO SCH ×3 (06:04→21:28)
[2020-07-22 06:57] LABS: BASO % 0.7 % (0-2.0); HEMATOCRIT 22.6 % (35.4-49); HEMOGLOBIN 7.4 GM/dL (11.7-16.9); MCH 27.5 pg (25.7-33.7); MCHC 32.7 g/dl (32.0-35.9); MEAN CELL VOLUME 83.9 fl (80-96); MEAN PLT VOLUME 9.4 fl (7.5-11.1); MONO % 7.4 % (3.8-10.2); NEUT % 77.9 % (42.8-82.8); PLATELET COUNT 228 K/MM3 (134-434); RBC 2.69 M/mm3 (4.00-5.60); WHITE BLOOD COUNT 5.7 K/mm3 (4.0-10.0)
[2020-07-22 07:21] LABS: CALCIUM 8.2 mg/dL (8.5-10.1)
[2020-07-22 07:22] LABS: BLOOD UREA NITROGEN 84.2 mg/dL (7-18); MAGNESIUM 2.4 mg/dL (1.8-2.4)
[2020-07-22 07:26] LABS: PHOSPHOROUS 5.8 mg/dL (2.5-4.9)
[2020-07-22] MEDS ORDERED: PT OWN MED DRAWER 7, Y5N ONE (08:57)
[2020-07-22] MEDS: cloNIDine-TTS 0.3 MG /24 HRS PATCH.TDWK TD SCH (09:00)
[2020-07-22] MEDS: TAMSULOSIN HCL 0.4 MG CAP PO SCH (09:10)
[2020-07-22] MEDS: ASPIRIN 81 MG CHEWABLE TABLETS PO SCH (09:11)
[2020-07-22] MEDS: CLOPIDOGREL BISULFATE 75 MG TABLET (FP) PO SCH (09:12)
[2020-07-22] MEDS: NIFEdipine E.R 60 MG TABLET PO SCH (09:13)
[2020-07-22] MEDS: GABAPENTIN 100 MG CAPSULE PO SCH ×2 (09:13→21:31)
[2020-07-22] MEDS ORDERED: cloNIDine-TTS 0.3 MG /24 HRS PATCH.TDWK TD SCH (10:00)
[2020-07-22] MEDS ORDERED: ERGOCALCIFEROL (VIT D2) 50,000 UNIT (1.25 MG) CAPSULE PO SCH (10:00)
[2020-07-22] MEDS: POLYETHYLENE GLYCOL 3350 119 GM BTL PO SCH (10:54)
[2020-07-22] MEDS: OXYBUTYNIN CHLORIDE 5 MG TABLET PO SCH ×2 (10:54→21:31)
[2020-07-22] MEDS: ISOSORBIDE MONONITRATE 30 MG TAB.SR.24H (FP) PO SCH (10:54)
[2020-07-22] MEDS ORDERED: ISOSORBIDE MONONITRATE 30 MG TAB.SR.24H (FP) PO ONE ×2 (11:45→23:45)
[2020-07-22] MEDS: cloNIDine HCL 0.1 MG TABLET PO SCH ×2 (12:00→21:30)
[2020-07-22] MEDS ORDERED: SODIUM CHLORIDE 0.9% 500 ML INFUS.BAG IV ONE (13:52)
[2020-07-22] MEDS: ATORVASTATIN CA 80 MG TABLET (FP) PO SCH (21:30)
[2020-07-22] MEDS: CHLORHEXIDINE GLUCONATE 4% CLEANSER FOR DECOLONIZATION TP SCH (21:38)
[2020-07-22] MEDS: INSULIN (LEVEMIR) 100 UNITS/ML UNITS SQ SCH (22:10)
[2020-07-22] MEDS ORDERED: FUROSEMIDE 40 MG/4 ML INJECTABLE VIAL IVPUSH ONE (23:11)
[2020-07-23] MEDS ORDERED: cloNIDine HCL 0.1 MG TABLET PO ONE (02:36)
[2020-07-23] MEDS: NICARDIPINE 25 MG in DEXTROSE 5%-WATER - 240 ML IVPB SCH (03:58)
[2020-07-23] MEDS: hydrALAZINE HCL 50 MG TABLET (FP) PO SCH ×3 (05:55→21:57)
[2020-07-23] MEDS: LABETALOL HCL 200 MG TABLET (FP) PO SCH ×3 (05:55→21:57)
[2020-07-23] MEDS: HEPARIN NA (PORCINE) 5,000 UNITS/ML 1ML VIAL SQ SCH ×3 (05:56→21:57)
[2020-07-23] MEDS: FUROSEMIDE 40 MG/4 ML INJECTABLE VIAL IVPUSH SCH ×2 (06:45→14:15)
[2020-07-23] MEDS: INSULIN SLIDING SCALE (NOVOLOG) 1 VIAL SQ SCH ×4 (06:50→21:57)
[2020-07-23] MEDS: TAMSULOSIN HCL 0.4 MG CAP PO SCH (08:34)
[2020-07-23 08:57] LABS: EOS % 4.9 % (0-4.5); HEMATOCRIT 22.5 % (35.4-49); HEMOGLOBIN 7.7 GM/dL (11.7-16.9); LYMPH % 10.6 % (8-40); MCH 28.4 pg (25.7-33.7); MCHC 34.3 g/dl (32.0-35.9); MEAN CELL VOLUME 82.9 fl (80-96); MEAN PLT VOLUME 8.9 fl (7.5-11.1); MONO % 6.5 % (3.8-10.2); PLATELET COUNT 265 K/MM3 (134-434); RBC 2.71 M/mm3 (4.00-5.60); RDW 14.8 % (11.9-15.9); WHITE BLOOD COUNT 6.5 K/mm3 (4.0-10.0)
[2020-07-23 09:16] LABS: BLOOD UREA NITROGEN 91.2 mg/dL (7-18); CALCIUM 8.9 mg/dL (8.5-10.1)
[2020-07-23 09:17] LABS: MAGNESIUM 2.6 mg/dL (1.8-2.4)
[2020-07-23 09:19] LABS: CREATININE 6.1 mg/dL (0.55-1.3)
[2020-07-23 09:20] LABS: PHOSPHOROUS 6.3 mg/dL (2.5-4.9)
[2020-07-23 09:21] LABS: BILIRUBIN,TOTAL 0.5 mg/dL (0.2-1); TOT PROT 5.2 g/dl (6.4-8.2)
[2020-07-23] MEDS ORDERED: PT OWN MED DRAWER 7, Y5N ONE (09:23)
[2020-07-23] MEDS: GABAPENTIN 100 MG CAPSULE PO SCH ×2 (09:29→21:57)
[2020-07-23] MEDS: OXYBUTYNIN CHLORIDE 5 MG TABLET PO SCH ×2 (09:29→21:57)
[2020-07-23] MEDS: cloNIDine HCL 0.1 MG TABLET PO SCH ×2 (09:29→21:57)
[2020-07-23] MEDS: NIFEdipine E.R 60 MG TABLET PO SCH (09:29)
[2020-07-23] MEDS: ASPIRIN 81 MG CHEWABLE TABLETS PO SCH (09:29)
[2020-07-23] MEDS: ISOSORBIDE MONONITRATE 60 MG TAB.SR.24H (FP) PO SCH (09:29)
[2020-07-23] MEDS: CLOPIDOGREL BISULFATE 75 MG TABLET (FP) PO SCH (09:29)
[2020-07-23] MEDS: POLYETHYLENE GLYCOL 3350 119 GM BTL PO SCH (09:30)
[2020-07-23] MEDS: INSULIN (LEVEMIR) 100 UNITS/ML UNITS SQ SCH (21:56)
[2020-07-23] MEDS: ATORVASTATIN CA 80 MG TABLET (FP) PO SCH (21:57)
[2020-07-23] MEDS: CHLORHEXIDINE GLUCONATE 4% CLEANSER FOR DECOLONIZATION TP SCH (21:59)
[2020-07-24] MEDS ORDERED: cloNIDine HCL 0.1 MG TABLET PO SCH (03:45)
[2020-07-24] MEDS: FUROSEMIDE 40 MG/4 ML INJECTABLE VIAL IVPUSH SCH ×2 (06:41→14:12)
[2020-07-24] MEDS: HEPARIN NA (PORCINE) 5,000 UNITS/ML 1ML VIAL SQ SCH ×3 (06:41→21:57)
[2020-07-24] MEDS: hydrALAZINE HCL 50 MG TABLET (FP) PO SCH ×3 (06:41→21:57)
[2020-07-24] MEDS: LABETALOL HCL 200 MG TABLET (FP) PO SCH ×3 (06:41→21:57)
[2020-07-24] MEDS: INSULIN SLIDING SCALE (NOVOLOG) 1 VIAL SQ SCH ×4 (06:50→21:57)
[2020-07-24 07:15] LABS: BASO % 0.8 % (0-2.0); EOS % 4.4 % (0-4.5); HEMATOCRIT 22.9 % (35.4-49); HEMOGLOBIN 7.8 GM/dL (11.7-16.9); LYMPH % 8.3 % (8-40); MCH 28.3 pg (25.7-33.7); MCHC 33.9 g/dl (32.0-35.9); MEAN CELL VOLUME 83.6 fl (80-96); MONO % 5.3 % (3.8-10.2); NEUT % 81.2 % (42.8-82.8); PLATELET COUNT 279 K/MM3 (134-434); RBC 2.74 M/mm3 (4.00-5.60); RDW 14.5 % (11.9-15.9); WHITE BLOOD COUNT 7.3 K/mm3 (4.0-10.0)
[2020-07-24 07:57] LABS: ALBUMIN 2.2 g/dl (3.4-5.0); BLOOD UREA NITROGEN 92.8 mg/dL (7-18); CREATININE 6.1 mg/dL (0.55-1.3); PHOSPHOROUS 6.3 mg/dL (2.5-4.9)
[2020-07-24 07:58] LABS: BILIRUBIN,TOTAL 0.4 mg/dL (0.2-1); TOT PROT 5.5 g/dl (6.4-8.2)
[2020-07-24 08:00] LABS: CALCIUM 8.7 mg/dL (8.5-10.1); MAGNESIUM 2.5 mg/dL (1.8-2.4)
[2020-07-24] MEDS: TAMSULOSIN HCL 0.4 MG CAP PO SCH (08:17)
[2020-07-24] MEDS ORDERED: PT OWN MED DRAWER 7, Y5N ONE ×2 (09:55→21:23)
[2020-07-24] MEDS: CLOPIDOGREL BISULFATE 75 MG TABLET (FP) PO SCH (09:57)
[2020-07-24] MEDS: ASPIRIN 81 MG CHEWABLE TABLETS PO SCH (09:57)
[2020-07-24] MEDS: OXYBUTYNIN CHLORIDE 5 MG TABLET PO SCH ×2 (09:58→21:57)
[2020-07-24] MEDS: ISOSORBIDE MONONITRATE 60 MG TAB.SR.24H (FP) PO SCH (09:58)
[2020-07-24] MEDS: GABAPENTIN 100 MG CAPSULE PO SCH ×2 (09:58→21:57)
[2020-07-24] MEDS: NIFEdipine E.R 60 MG TABLET PO SCH (09:58)
[2020-07-24] MEDS: POLYETHYLENE GLYCOL 3350 119 GM BTL PO SCH (10:15)
[2020-07-24] MEDS ORDERED: cloNIDine-TTS 0.2 MG/24 HOURS PATCH.TDWK TD SCH (12:00)
[2020-07-24] MEDS: MINOXIDIL 2.5 MG TABLET PO SCH ×2 (12:04→21:57)
[2020-07-24] MEDS ORDERED: cloNIDine-TTS 0.3 MG /24 HRS PATCH.TDWK TD SCH (19:00)
[2020-07-24] MEDS: ATORVASTATIN CA 80 MG TABLET (FP) PO SCH (21:57)
[2020-07-24] MEDS: INSULIN (LEVEMIR) 100 UNITS/ML UNITS SQ SCH (21:58)
[2020-07-24] MEDS: CHLORHEXIDINE GLUCONATE 4% CLEANSER FOR DECOLONIZATION TP SCH (21:58)
[2020-07-25] MEDS ORDERED: MINOXIDIL 2.5 MG TABLET PO ONE (00:05)
[2020-07-25] MEDS ORDERED: LABETALOL HCL 5 MG/1 ML (100MG/20 ML VIAL) IVPUSH ONE (00:06)
[2020-07-25] MEDS: LABETALOL HCL 200 MG TABLET (FP) PO SCH ×3 (05:42→22:24)
[2020-07-25] MEDS: FUROSEMIDE 40 MG/4 ML INJECTABLE VIAL IVPUSH SCH ×2 (05:42→14:36)
[2020-07-25] MEDS: hydrALAZINE HCL 50 MG TABLET (FP) PO SCH ×3 (05:42→22:24)
[2020-07-25] MEDS: HEPARIN NA (PORCINE) 5,000 UNITS/ML 1ML VIAL SQ SCH ×3 (05:42→22:24)
[2020-07-25] MEDS: INSULIN SLIDING SCALE (NOVOLOG) 1 VIAL SQ SCH ×4 (07:00→22:23)
[2020-07-25] MEDS: GABAPENTIN 100 MG CAPSULE PO SCH ×2 (09:03→22:23)
[2020-07-25] MEDS: NIFEdipine E.R 60 MG TABLET PO SCH (09:04)
[2020-07-25] MEDS: TAMSULOSIN HCL 0.4 MG CAP PO SCH (09:04)
[2020-07-25] MEDS: ASPIRIN 81 MG CHEWABLE TABLETS PO SCH (09:05)
[2020-07-25] MEDS: OXYBUTYNIN CHLORIDE 5 MG TABLET PO SCH ×2 (09:05→22:59)
[2020-07-25] MEDS: CLOPIDOGREL BISULFATE 75 MG TABLET (FP) PO SCH (09:06)
[2020-07-25] MEDS: MINOXIDIL 2.5 MG TABLET PO SCH ×2 (10:41→22:24)
[2020-07-25] MEDS: ISOSORBIDE MONONITRATE 60 MG TAB.SR.24H (FP) PO SCH (10:42)
[2020-07-25] MEDS: ATORVASTATIN CA 80 MG TABLET (FP) PO SCH (22:24)
[2020-07-25] MEDS: INSULIN (LEVEMIR) 100 UNITS/ML UNITS SQ SCH (22:24)
[2020-07-25] MEDS: CHLORHEXIDINE GLUCONATE 4% CLEANSER FOR DECOLONIZATION TP SCH (22:24)
[2020-07-26] MEDS ORDERED: BISACODYL 10 MG SUPP.RECT PR PRN (01:42)
[2020-07-26] MEDS: LABETALOL HCL 200 MG TABLET (FP) PO SCH ×3 (05:52→21:43)
[2020-07-26] MEDS: hydrALAZINE HCL 50 MG TABLET (FP) PO SCH ×3 (05:52→21:43)
[2020-07-26] MEDS: HEPARIN NA (PORCINE) 5,000 UNITS/ML 1ML VIAL SQ SCH ×3 (05:52→21:43)
[2020-07-26] MEDS: FUROSEMIDE 40 MG/4 ML INJECTABLE VIAL IVPUSH SCH ×2 (05:53→14:53)
[2020-07-26] MEDS: INSULIN SLIDING SCALE (NOVOLOG) 1 VIAL SQ SCH ×4 (06:28→21:42)
[2020-07-26] MEDS ORDERED: PT OWN MED DRAWER 7, Y5N ONE (10:08)
[2020-07-26] MEDS: TAMSULOSIN HCL 0.4 MG CAP PO SCH (10:12)
[2020-07-26] MEDS: GABAPENTIN 100 MG CAPSULE PO SCH ×2 (10:13→21:43)
[2020-07-26] MEDS: CLOPIDOGREL BISULFATE 75 MG TABLET (FP) PO SCH (10:13)
[2020-07-26] MEDS: ISOSORBIDE MONONITRATE 60 MG TAB.SR.24H (FP) PO SCH (10:13)
[2020-07-26] MEDS: ASPIRIN 81 MG CHEWABLE TABLETS PO SCH (10:13)
[2020-07-26] MEDS: NIFEdipine E.R 60 MG TABLET PO SCH (10:14)
[2020-07-26] MEDS: MINOXIDIL 2.5 MG TABLET PO SCH ×2 (10:14→21:43)
[2020-07-26] MEDS: OXYBUTYNIN CHLORIDE 5 MG TABLET PO SCH ×2 (10:15→21:43)
[2020-07-26 12:39] LABS: ALBUMIN 2.2 g/dl (3.4-5.0); BILIRUBIN,TOTAL 0.5 mg/dL (0.2-1); BLOOD UREA NITROGEN 89.2 mg/dL (7-18); CALCIUM 8.5 mg/dL (8.5-10.1); CREATININE 6.4 mg/dL (0.55-1.3); TOT PROT 5.4 g/dl (6.4-8.2)
[2020-07-26] MEDS: INSULIN (LEVEMIR) 100 UNITS/ML UNITS SQ SCH (21:42)
[2020-07-26] MEDS: ATORVASTATIN CA 80 MG TABLET (FP) PO SCH (21:43)
[2020-07-26] MEDS ORDERED: CHLORHEXIDINE GLUCONATE 4% CLEANSER FOR DECOLONIZATION TP SCH (22:00)
[2020-07-27] MEDS: LABETALOL HCL 200 MG TABLET (FP) PO SCH ×3 (05:48→21:16)
[2020-07-27] MEDS: hydrALAZINE HCL 50 MG TABLET (FP) PO SCH ×3 (05:48→21:29)
[2020-07-27] MEDS: HEPARIN NA (PORCINE) 5,000 UNITS/ML 1ML VIAL SQ SCH ×3 (05:48→21:31)
[2020-07-27] MEDS: FUROSEMIDE 40 MG/4 ML INJECTABLE VIAL IVPUSH SCH ×2 (05:48→15:10)
[2020-07-27] MEDS: INSULIN SLIDING SCALE (NOVOLOG) 1 VIAL SQ SCH ×4 (06:10→21:32)
[2020-07-27] MEDS ORDERED: PT OWN MED DRAWER 7, Y5N ONE ×3 (08:54→21:26)
[2020-07-27] MEDS: GABAPENTIN 100 MG CAPSULE PO SCH ×2 (09:29→21:30)
[2020-07-27] MEDS: TAMSULOSIN HCL 0.4 MG CAP PO SCH (09:29)
[2020-07-27] MEDS: ISOSORBIDE MONONITRATE 60 MG TAB.SR.24H (FP) PO SCH (09:30)
[2020-07-27] MEDS: NIFEdipine E.R 60 MG TABLET PO SCH (09:30)
[2020-07-27] MEDS: ASPIRIN 81 MG CHEWABLE TABLETS PO SCH (09:30)
[2020-07-27] MEDS: CLOPIDOGREL BISULFATE 75 MG TABLET (FP) PO SCH (09:30)
[2020-07-27] MEDS: OXYBUTYNIN CHLORIDE 5 MG TABLET PO SCH ×2 (09:31→21:31)
[2020-07-27] MEDS: MINOXIDIL 2.5 MG TABLET PO SCH ×2 (09:31→21:31)
[2020-07-27] MEDS ORDERED: SODIUM ZIRCONIUM CYCLOSILICATE (LOKELMA) 10 GM PACKET PO ONE (14:00)
[2020-07-27] MEDS: ATORVASTATIN CA 80 MG TABLET (FP) PO SCH (21:30)
[2020-07-27] MEDS: INSULIN (LEVEMIR) 100 UNITS/ML UNITS SQ SCH (21:32)
[2020-07-28] MEDS ORDERED: LABETALOL HCL 100 MG TABLET (FP) ONE (06:16)
[2020-07-28] MEDS: INSULIN SLIDING SCALE (NOVOLOG) 1 VIAL SQ SCH ×4 (06:21→22:21)
[2020-07-28] MEDS: hydrALAZINE HCL 50 MG TABLET (FP) PO SCH ×3 (06:22→22:18)
[2020-07-28] MEDS: HEPARIN NA (PORCINE) 5,000 UNITS/ML 1ML VIAL SQ SCH ×3 (06:22→22:25)
[2020-07-28] MEDS: FUROSEMIDE 40 MG/4 ML INJECTABLE VIAL IVPUSH SCH ×2 (06:23→13:40)
[2020-07-28] MEDS: LABETALOL HCL 200 MG TABLET (FP) PO SCH ×3 (06:23→22:18)
[2020-07-28 07:44] LABS: BASO % 1.2 % (0-2.0); EOS % 6.4 % (0-4.5); HEMATOCRIT 21.3 % (35.4-49); HEMOGLOBIN 7.1 GM/dL (11.7-16.9); LYMPH % 15.1 % (8-40); MCH 28.1 pg (25.7-33.7); MCHC 33.6 g/dl (32.0-35.9); MEAN CELL VOLUME 83.8 fl (80-96); MEAN PLT VOLUME 9.2 fl (7.5-11.1); NEUT % 69.3 % (42.8-82.8); PLATELET COUNT 245 K/MM3 (134-434); RBC 2.54 M/mm3 (4.00-5.60); RDW 14.7 % (11.9-15.9); WHITE BLOOD COUNT 4.9 K/mm3 (4.0-10.0)
[2020-07-28 07:46] LABS: INR 1.17 (0.83-1.09); PROTHROMBIN TIME (PATIENT) 14.1 SEC (9.7-13.0)
[2020-07-28 08:12] LABS: ALBUMIN 2.5 g/dl (3.4-5.0); BLOOD UREA NITROGEN 89.7 mg/dL (7-18); CALCIUM 8.3 mg/dL (8.5-10.1); MAGNESIUM 2.4 mg/dL (1.8-2.4)
[2020-07-28] MEDS ORDERED: SODIUM ZIRCONIUM CYCLOSILICATE (LOKELMA) 5 GM PACKET PO ONE (08:13)
[2020-07-28 08:16] LABS: CREATININE 6.6 mg/dL (0.55-1.3)
[2020-07-28 08:17] LABS: BILIRUBIN,TOTAL 0.5 mg/dL (0.2-1); TOT PROT 5.8 g/dl (6.4-8.2)
[2020-07-28] MEDS ORDERED: PT OWN MED DRAWER 7, Y5N ONE ×2 (08:53→22:14)
[2020-07-28] MEDS: TAMSULOSIN HCL 0.4 MG CAP PO SCH (08:59)
[2020-07-28] MEDS: ISOSORBIDE MONONITRATE 60 MG TAB.SR.24H (FP) PO SCH (09:00)
[2020-07-28] MEDS: GABAPENTIN 100 MG CAPSULE PO SCH ×2 (09:00→22:19)
[2020-07-28] MEDS: NIFEdipine E.R 60 MG TABLET PO SCH (09:00)
[2020-07-28] MEDS: CLOPIDOGREL BISULFATE 75 MG TABLET (FP) PO SCH (09:00)
[2020-07-28] MEDS: ASPIRIN 81 MG CHEWABLE TABLETS PO SCH (09:00)
[2020-07-28] MEDS: MINOXIDIL 2.5 MG TABLET PO SCH ×2 (09:00→22:24)
[2020-07-28] MEDS: OXYBUTYNIN CHLORIDE 5 MG TABLET PO SCH ×2 (09:01→22:18)
[2020-07-28] MEDS ORDERED: HEPARIN NA (PORCINE) 5,000 UNITS/ML 1ML VIAL ONE ×2 (12:42→16:53)
[2020-07-28] MEDS ORDERED: POVIDONE-IODINE OINTMENT 10% - 28.4 GM TUBE ONE (12:42)
[2020-07-28] MEDS ORDERED: LIDOCAINE HCL 1%, 10 MG/ML (20ML VIAL) ONE (12:42)
[2020-07-28] MEDS ORDERED: PROMETHAZINE HCL 25 MG/1 ML VIAL IVPUSH PRN ×2 (14:53→18:17)
[2020-07-28] MEDS ORDERED: ONDANSETRON 4 MG/2 ML VIAL IVPUSH PRN ×2 (14:53→18:17)
[2020-07-28] MEDS ORDERED: SODIUM CHLORIDE 1,000 ML IV SCH (15:00)
[2020-07-28] MEDS ORDERED: MIDAZOLAM HCL 2 MG/2 ML SINGLE DOSE VIAL ONE ×2 (15:47)
[2020-07-28] MEDS ORDERED: LIDOCAINE HCL 1%, 10 MG/ML (20ML VIAL) NR ONE ×4 (16:00→16:38)
[2020-07-28] MEDS ORDERED: ceFAZolin SODIUM 1 GM VIAL ONE (16:41)
[2020-07-28] MEDS ORDERED: BISACODYL 10 MG SUPP.RECT PR PRN (18:17)
[2020-07-28] MEDS: SODIUM CHLORIDE 1,000 ML IV SCH ×2 (19:30→21:52)
[2020-07-28] MEDS ORDERED: oxyCODONE HCL 5 MG TABLET PO ONE ×2 (21:58→22:00)
[2020-07-28] MEDS ORDERED: ACETAMINOPHEN 325 MG TABLET (FP) PO ONE ×2 (21:59→22:00)
[2020-07-28] MEDS ORDERED: ATORVASTATIN CA 80 MG TABLET (FP) PO SCH (22:00)
[2020-07-28] MEDS: INSULIN (LEVEMIR) 100 UNITS/ML UNITS SQ SCH (22:25)
[2020-07-29] MEDS: INSULIN (LEVEMIR) 100 UNITS/ML UNITS SQ SCH ×2 (00:51→21:54)
[2020-07-29] MEDS ORDERED: FUROSEMIDE 40 MG/4 ML INJECTABLE VIAL IVPUSH SCH (06:00)
[2020-07-29] MEDS: INSULIN SLIDING SCALE (NOVOLOG) 1 VIAL SQ SCH ×4 (06:47→21:50)
[2020-07-29] MEDS: HEPARIN NA (PORCINE) 5,000 UNITS/ML 1ML VIAL SQ SCH ×3 (06:48→21:49)
[2020-07-29] MEDS: hydrALAZINE HCL 50 MG TABLET (FP) PO SCH ×3 (06:49→21:48)
[2020-07-29] MEDS: LABETALOL HCL 200 MG TABLET (FP) PO SCH ×3 (06:49→21:49)
[2020-07-29 07:12] LABS: BASO % 0.8 % (0-2.0); EOS % 4.8 % (0-4.5); HEMATOCRIT 23.4 % (35.4-49); HEMOGLOBIN 7.9 GM/dL (11.7-16.9); LYMPH % 8.7 % (8-40); MCH 28.7 pg (25.7-33.7); MCHC 33.9 g/dl (32.0-35.9); MEAN CELL VOLUME 84.5 fl (80-96); MEAN PLT VOLUME 9.4 fl (7.5-11.1); MONO % 7.1 % (3.8-10.2); NEUT % 78.6 % (42.8-82.8); PLATELET COUNT 229 K/MM3 (134-434); RBC 2.76 M/mm3 (4.00-5.60); RDW 14.3 % (11.9-15.9); WHITE BLOOD COUNT 6.9 K/mm3 (4.0-10.0)
[2020-07-29 07:39] LABS: ALBUMIN 2.5 g/dl (3.4-5.0); BLOOD UREA NITROGEN 93.2 mg/dL (7-18); CALCIUM 8.5 mg/dL (8.5-10.1); MAGNESIUM 2.5 mg/dL (1.8-2.4)
[2020-07-29 07:44] LABS: BILIRUBIN,TOTAL 0.7 mg/dL (0.2-1); TOT PROT 5.6 g/dl (6.4-8.2)
[2020-07-29] MEDS ORDERED: TAMSULOSIN HCL 0.4 MG CAP PO SCH (08:30)
[2020-07-29] MEDS ORDERED: PT OWN MED DRAWER 7, Y5N ONE (09:15)
[2020-07-29] MEDS ORDERED: SODIUM CHLORIDE 250 ML IV PRN ×2 (09:20→19:28)
[2020-07-29] MEDS: GABAPENTIN 100 MG CAPSULE PO SCH ×2 (09:27→21:48)
[2020-07-29] MEDS: MINOXIDIL 2.5 MG TABLET PO SCH ×2 (09:28→22:04)
[2020-07-29] MEDS: OXYBUTYNIN CHLORIDE 5 MG TABLET PO SCH ×2 (09:28→21:48)
[2020-07-29] MEDS ORDERED: ERGOCALCIFEROL (VIT D2) 50,000 UNIT (1.25 MG) CAPSULE PO SCH ×2 (10:00)
[2020-07-29] MEDS ORDERED: NIFEdipine E.R 60 MG TABLET PO SCH (10:00)
[2020-07-29] MEDS ORDERED: ISOSORBIDE MONONITRATE 60 MG TAB.SR.24H (FP) PO SCH (10:00)
[2020-07-29] MEDS ORDERED: ASPIRIN 81 MG CHEWABLE TABLETS PO SCH (10:00)
[2020-07-29] MEDS ORDERED: CLOPIDOGREL BISULFATE 75 MG TABLET (FP) PO SCH (10:00)
[2020-07-29] MEDS ORDERED: SODIUM CHLORIDE 1,000 ML IV SCH (19:28)
[2020-07-29] MEDS ORDERED: ONDANSETRON 4 MG/2 ML VIAL IVPUSH PRN (19:28)
[2020-07-29] MEDS ORDERED: BISACODYL 10 MG SUPP.RECT PR PRN (19:28)
[2020-07-29] MEDS: ATORVASTATIN CA 80 MG TABLET (FP) PO SCH (21:48)
[2020-07-30] MEDS: hydrALAZINE HCL 50 MG TABLET (FP) PO SCH ×4 (05:29→22:47)
[2020-07-30] MEDS: LABETALOL HCL 200 MG TABLET (FP) PO SCH ×4 (05:29→22:46)
[2020-07-30] MEDS: HEPARIN NA (PORCINE) 5,000 UNITS/ML 1ML VIAL SQ SCH ×3 (05:30→22:47)
[2020-07-30] MEDS: INSULIN SLIDING SCALE (NOVOLOG) 1 VIAL SQ SCH ×4 (06:57→22:47)
[2020-07-30 07:58] LABS: BASO % 0.7 % (0-2.0); EOS % 3.3 % (0-4.5); HEMATOCRIT 22.3 % (35.4-49); HEMOGLOBIN 7.6 GM/dL (11.7-16.9); LYMPH % 7.3 % (8-40); MCH 28.5 pg (25.7-33.7); MCHC 33.9 g/dl (32.0-35.9); MEAN CELL VOLUME 84.1 fl (80-96); MEAN PLT VOLUME 9.2 fl (7.5-11.1); MONO % 6.1 % (3.8-10.2); NEUT % 82.6 % (42.8-82.8); PLATELET COUNT 211 K/MM3 (134-434); RBC 2.65 M/mm3 (4.00-5.60); RDW 14.3 % (11.9-15.9); WHITE BLOOD COUNT 8.2 K/mm3 (4.0-10.0)
[2020-07-30 08:27] LABS: ALBUMIN 2.4 g/dl (3.4-5.0); CALCIUM 8.3 mg/dL (8.5-10.1); MAGNESIUM 2.3 mg/dL (1.8-2.4)
[2020-07-30 08:29] LABS: BILIRUBIN,TOTAL 0.5 mg/dL (0.2-1); TOT PROT 5.7 g/dl (6.4-8.2)
[2020-07-30 08:30] LABS: CREATININE 5.7 mg/dL (0.55-1.3)
[2020-07-30 08:44] LABS: BLOOD UREA NITROGEN 66.3 mg/dL (7-18)
[2020-07-30 10:09] LABS: SARS-CoV-2 NAA Not Detected (Not Detected)
[2020-07-30] MEDS ORDERED: PT OWN MED DRAWER 7, Y5N ONE (11:12)
[2020-07-30] MEDS: GABAPENTIN 100 MG CAPSULE PO SCH ×2 (11:31→22:46)
[2020-07-30] MEDS: TAMSULOSIN HCL 0.4 MG CAP PO SCH (11:31)
[2020-07-30] MEDS: ASPIRIN 81 MG CHEWABLE TABLETS PO SCH ×2 (11:41→14:26)
[2020-07-30] MEDS: MINOXIDIL 2.5 MG TABLET PO SCH ×2 (11:42→22:46)
[2020-07-30] MEDS: ISOSORBIDE MONONITRATE 60 MG TAB.SR.24H (FP) PO SCH ×2 (11:42→14:22)
[2020-07-30] MEDS: NIFEdipine E.R 60 MG TABLET PO SCH (11:42)
[2020-07-30] MEDS: CLOPIDOGREL BISULFATE 75 MG TABLET (FP) PO SCH (11:42)
[2020-07-30] MEDS: OXYBUTYNIN CHLORIDE 5 MG TABLET PO SCH ×2 (11:42→22:47)
[2020-07-30] MEDS: VITAMIN B COMP W-C 1 EA TABLET (NEPHRO-VITE) PO SCH ×2 (11:42→14:22)
[2020-07-30 12:08] LABS: HEP B CORE AB, TOT Negative (Negative)
[2020-07-30] MEDS: SEVELAMER CARBONATE 800 MG TAB (FP) PO SCH (17:59)
[2020-07-30] MEDS: INSULIN (LEVEMIR) 100 UNITS/ML UNITS SQ SCH (22:47)
[2020-07-30] MEDS: ATORVASTATIN CA 80 MG TABLET (FP) PO SCH (22:47)
[2020-07-31] MEDS: hydrALAZINE HCL 50 MG TABLET (FP) PO SCH ×2 (06:09→14:07)
[2020-07-31] MEDS: HEPARIN NA (PORCINE) 5,000 UNITS/ML 1ML VIAL SQ SCH ×2 (06:09→14:08)
[2020-07-31] MEDS: LABETALOL HCL 200 MG TABLET (FP) PO SCH ×2 (06:09→14:08)
[2020-07-31] MEDS: INSULIN SLIDING SCALE (NOVOLOG) 1 VIAL SQ SCH ×3 (06:09→16:36)
[2020-07-31 08:15] LABS: BASO % 1.1 % (0-2.0); EOS % 3.8 % (0-4.5); HEMATOCRIT 22.5 % (35.4-49); HEMOGLOBIN 7.7 GM/dL (11.7-16.9); LYMPH % 7.7 % (8-40); MCH 28.8 pg (25.7-33.7); MCHC 34.2 g/dl (32.0-35.9); MEAN CELL VOLUME 84.2 fl (80-96); MEAN PLT VOLUME 8.9 fl (7.5-11.1); MONO % 7.1 % (3.8-10.2); NEUT % 80.3 % (42.8-82.8); PLATELET COUNT 198 K/MM3 (134-434); RBC 2.68 M/mm3 (4.00-5.60); RDW 14.3 % (11.9-15.9); WHITE BLOOD COUNT 6.6 K/mm3 (4.0-10.0)
[2020-07-31 08:40] LABS: ALBUMIN 2.5 g/dl (3.4-5.0); BLOOD UREA NITROGEN 61.5 mg/dL (7-18); CALCIUM 8.9 mg/dL (8.5-10.1); MAGNESIUM 2.3 mg/dL (1.8-2.4)
[2020-07-31 08:44] LABS: CREATININE 5.8 mg/dL (0.55-1.3)
[2020-07-31 08:46] LABS: BILIRUBIN,TOTAL 0.6 mg/dL (0.2-1); TOT PROT 5.7 g/dl (6.4-8.2)
[2020-07-31] MEDS: SEVELAMER CARBONATE 800 MG TAB (FP) PO SCH ×4 (09:02→16:31)
[2020-07-31] MEDS: TAMSULOSIN HCL 0.4 MG CAP PO SCH ×2 (09:02→14:04)
[2020-07-31] MEDS ORDERED: cloNIDine-TTS 0.3 MG /24 HRS PATCH.TDWK TD SCH ×3 (10:00)
[2020-07-31] MEDS: ISOSORBIDE MONONITRATE 60 MG TAB.SR.24H (FP) PO SCH ×2 (10:04→14:06)
[2020-07-31] MEDS: MINOXIDIL 2.5 MG TABLET PO SCH ×2 (10:04→14:03)
[2020-07-31] MEDS: OXYBUTYNIN CHLORIDE 5 MG TABLET PO SCH ×2 (10:04→14:05)
[2020-07-31] MEDS: ASPIRIN 81 MG CHEWABLE TABLETS PO SCH ×2 (10:04→14:06)
[2020-07-31] MEDS: VITAMIN B COMP W-C 1 EA TABLET (NEPHRO-VITE) PO SCH ×2 (10:05→14:45)
[2020-07-31] MEDS: NIFEdipine E.R 60 MG TABLET PO SCH ×2 (10:05→14:07)
[2020-07-31] MEDS: CLOPIDOGREL BISULFATE 75 MG TABLET (FP) PO SCH ×2 (10:05→14:07)
[2020-07-31] MEDS: GABAPENTIN 100 MG CAPSULE PO SCH ×2 (10:05→14:07)
[2020-07-31] MEDS ORDERED: SODIUM CHLORIDE 250 ML IV PRN (10:50)
[2020-07-31] MEDS ORDERED: EPOETIN ALFA-EPBX 4,000 UNIT/ML VIAL SQ ONE (11:00)
[2020-07-31 17:02] VITALS: BP 157/70; PULSE 79; TEMP 98.7
[2020-08-01] MEDS ORDERED: SERTRALINE HCL 25 MG TABLET (FP) PO SCH (10:00)
[2020-08-05] MEDS ORDERED: ERGOCALCIFEROL (VIT D2) 50,000 UNIT (1.25 MG) CAPSULE PO SCH (10:00)
== END 2020-07-31 19:00 | disposition home health service (06) | DRG 180 ==
LOC: JER 20:27 → JERBED 21:59 → JICU 07-15 14:03 → J4S 07-25 20:42 → J7W 07-29 19:17
PROVIDERS: ADMIT Internal Medicine Pulmonary Disease; ATTEND Nurse Practitioner Acute Care
PROC: 30233N1 Transfusion of Nonautologous Red Blood Cells into Peripheral Vein, Percutaneous Approach (ICD-10-PCS; 2020-07-15)
PROC: 05HF33Z Insertion of Infusion Device into Left Cephalic Vein, Percutaneous Approach (ICD-10-PCS; 2020-07-28)
PROC: B51NZZA Fluoroscopy of Left Upper Extremity Veins, Guidance (ICD-10-PCS; 2020-07-28)
PROC: 03180JD Bypass Left Brachial Artery to Upper Arm Vein with Synthetic Substitute, Open Approach (ICD-10-PCS; 2020-07-28)
PROC: 5A1D70Z Performance of Urinary Filtration, Intermittent, Less than 6 Hours Per Day (ICD-10-PCS; principal; 2020-07-29)
PROC: 5A1D70Z Performance of Urinary Filtration, Intermittent, Less than 6 Hours Per Day (ICD-10-PCS; 2020-07-31)
DX: I16.1 Hypertensive emergency (principal); I69.354 Hemiplegia and hemiparesis following cerebral infarction affecting left non-dominant side; I13.0 Hypertensive heart and chronic kidney disease with heart failure and stage 1 through stage 4 chronic kidney disease, or unspecified chronic kidney disease; I50.33 Acute on chronic diastolic (congestive) heart failure; N18.6 End stage renal disease; E11.22 Type 2 diabetes mellitus with diabetic chronic kidney disease; N17.9 Acute kidney failure, unspecified; N40.0 Benign prostatic hyperplasia without lower urinary tract symptoms; E78.5 Hyperlipidemia, unspecified; E11.65 Type 2 diabetes mellitus with hyperglycemia; D64.9 Anemia, unspecified; J81.0 Acute pulmonary edema; I31.3 Pericardial effusion (noninflammatory)
CPT/HCPCS: 36415; 36430; 36511; 71045-TC-FY; 74230-TC-FY; 76000-TC-FY; 80048; 80053; 80074; 82550; 82553; 82728; 82746; 82962; 83036; 83540; 83550; 83735; 83835; 83880; 84100; 84466; 84484; 85025; 85027; 85045; 85610; 86704; 86706; 86707; 86708; 86709; 86850; 86900; 86901; 86922; 87340; 92611-GN; 93005; 93010; 93306-TC; 94010; 94760; 97116-GP; 97161-GP; 99291; C9803; J0735; J1644; P9038; P9058; Q5106; U0003; U0005

== ENCOUNTER 2020-09-03 04:19 | Day surgery (SDC) | payer OTHER ==
[2020-09-02 14:43] VITALS: BMI 23.3
[2020-09-03 10:24] LABS: HEMATOCRIT 30.9 % (35.4-49); HEMOGLOBIN 10.2 GM/dL (11.7-16.9); MCH 28.1 pg (25.7-33.7); MCHC 33.1 g/dl (32.0-35.9); MEAN CELL VOLUME 84.7 fl (80-96); MEAN PLT VOLUME 7.8 fl (7.5-11.1); PLATELET COUNT 217 K/MM3 (134-434); RBC 3.64 M/mm3 (4.00-5.60); RDW 16.1 % (11.9-15.9); WHITE BLOOD COUNT 3.9 K/mm3 (4.0-10.0)
[2020-09-03] MEDS ORDERED: LIDOCAINE HCL 1%, 10 MG/ML (20ML VIAL) ONE (10:39)
[2020-09-03] MEDS ORDERED: HEPARIN NA (PORCINE) 5,000 UNITS/ML 1ML VIAL ONE (10:39)
[2020-09-03] MEDS ORDERED: PROPOFOL 20 ML ONE ×2 (13:25)
[2020-09-03] MEDS ORDERED: ceFAZolin 2 GRAM PREMIX BAG IVPB ONE (13:25)
[2020-09-03] MEDS ORDERED: ceFAZolin SODIUM 1 GM VIAL IVPB ONE (13:25)
[2020-09-03] MEDS ORDERED: SUCCINYLCHOLINE CHLORIDE 200 MG/10 ML SYRINGE ONE (13:25)
[2020-09-03] MEDS ORDERED: MIDAZOLAM HCL 2 MG/2 ML SINGLE DOSE VIAL ONE (13:26)
[2020-09-03] MEDS ORDERED: ceFAZolin SODIUM 1 GM VIAL ONE (13:33)
[2020-09-03] MEDS ORDERED: ONDANSETRON 4 MG/2 ML VIAL ONE (13:37)
[2020-09-03] MEDS ORDERED: DEXAMETHASONE SOD PHOSPHATE 4 MG/1 ML VIAL ONE (13:37)
[2020-09-03] MEDS ORDERED: LIDOCAINE HCL 1%, 10 MG/ML (20ML VIAL) NR ONE ×2 (13:42)
[2020-09-03 16:05] VITALS: TEMP 97.9
[2020-09-03 16:32] VITALS: BP 156/78; PULSE 62
== END 2020-09-03 16:45 | disposition home or self-care (01) ==
LOC: JASU-SURG 04:19
PROVIDERS: ATTEND Surgery Vascular Surgery
PROC: 037C3ZZ Dilation of Left Radial Artery, Percutaneous Approach (ICD-10-PCS; principal; 2020-09-03 13:42)
DX: T82.858A Stenosis of other vascular prosthetic devices, implants and grafts, initial encounter (principal); I12.0 Hypertensive chronic kidney disease with stage 5 chronic kidney disease or end stage renal disease; E11.22 Type 2 diabetes mellitus with diabetic chronic kidney disease; N18.6 End stage renal disease; Z79.4 Long term (current) use of insulin; Z99.2 Dependence on renal dialysis
CPT/HCPCS: 36415; 76000-TC-FY; 82962; 84132; 85027; J1644

== ENCOUNTER 2020-10-31 09:53 | Inpatient (IN) | payer OTHER ==
[2020-10-31 10:02] VITALS: BMI 21.7
[2020-10-31 11:18] LABS: BASO % 1.2 % (0-2.0); EOS % 5.1 % (0-4.5); HEMATOCRIT 33.8 % (35.4-49); LYMPH % 11.5 % (8-40); MCH 26.8 pg (25.7-33.7); MCHC 32.5 g/dl (32.0-35.9); MEAN CELL VOLUME 82.4 fl (80-96); MEAN PLT VOLUME 8.2 fl (7.5-11.1); MONO % 5.1 % (3.8-10.2); NEUT % 77.1 % (42.8-82.8); PLATELET COUNT 204 10^3/uL (134-434); WHITE BLOOD COUNT 5.7 K/mm3 (4.0-10.0)
[2020-10-31 11:39] LABS: BLOOD UREA NITROGEN 79.7 mg/dL (7-18); CALCIUM 8.2 mg/dL (8.5-10.1)
[2020-10-31 11:40] LABS: ALBUMIN 2.9 g/dl (3.4-5.0)
[2020-10-31 11:42] LABS: CREATININE 5.5 mg/dL (0.55-1.3)
[2020-10-31 11:44] LABS: BILIRUBIN,TOTAL 0.4 mg/dL (0.2-1); TOT PROT 6.1 g/dl (6.4-8.2)
[2020-10-31] MEDS ORDERED: DEXTROSE 50%-WATER - 25 GM/50 ML VIAL IVPUSH ONE (11:48)
[2020-10-31] MEDS ORDERED: SODIUM BICARBONATE 8.4% 50 MEQ/50 ML DISP.SYRIN IVPUSH ONE (11:49)
[2020-10-31] MEDS ORDERED: CALCIUM GLUC IN NACL, ISO-OSM 1 GM/50 ML BAG IVPB ONE (11:49)
[2020-10-31] MEDS ORDERED: INSULIN REGULAR HUMAN 100 UNITS/ML *VIAL IVPUSH ONE (11:49)
[2020-10-31] MEDS ORDERED: CALCIUM GLUCONATE 10% - 1,000 MG/10 ML VIAL ONE (11:58)
[2020-10-31] MEDS ORDERED: DEXTROSE 50%-WATER 25 GM/50 ML DISP.SYRIN ONE (11:58)
[2020-10-31] MEDS ORDERED: SODIUM BICARBONATE 8.4% 50 MEQ/50 ML VIAL ONE (11:58)
[2020-10-31] MEDS ORDERED: SODIUM CHLORIDE 250 ML IV PRN (12:00)
[2020-10-31] MEDS ORDERED: VITAMIN B COMP W-C 1 EA TABLET (NEPHRO-VITE) PO SCH (23:30)
[2020-10-31] MEDS ORDERED: SERTRALINE HCL 25 MG TABLET (FP) PO SCH (23:30)
[2020-11-01] MEDS: hydrALAZINE HCL 50 MG TABLET (FP) PO SCH ×4 (00:19→22:01)
[2020-11-01] MEDS ORDERED: LABETALOL HCL 100 MG TABLET (FP) PO SCH (06:00)
[2020-11-01] MEDS: INSULIN (LEVEMIR) 100 UNITS/ML UNITS SQ SCH (06:17)
[2020-11-01] MEDS ORDERED: INSULIN SLIDING SCALE (NOVOLOG) 1 VIAL SQ SCH (07:00)
[2020-11-01] MEDS ORDERED: PT OWN MED DRAWER 7, Y5N ONE ×3 (08:22→21:51)
[2020-11-01] MEDS: GABAPENTIN 100 MG CAPSULE PO SCH ×2 (09:07→22:01)
[2020-11-01] MEDS: CLOPIDOGREL BISULFATE 75 MG TABLET (FP) PO SCH (09:07)
[2020-11-01] MEDS: NIFEdipine E.R 60 MG TABLET PO SCH (09:07)
[2020-11-01] MEDS: TAMSULOSIN HCL 0.4 MG CAP PO SCH (09:07)
[2020-11-01] MEDS: ISOSORBIDE MONONITRATE 60 MG TAB.SR.24H (FP) PO SCH (09:07)
[2020-11-01] MEDS: ASPIRIN 81 MG CHEWABLE TABLETS PO SCH (09:07)
[2020-11-01] MEDS: ENOXAPARIN NA (PORCINE) 30 MG/0.3 ML DISP.SYRIN SQ SCH (09:08)
[2020-11-01] MEDS: FLUDROCORTISONE ACETATE 0.1 MG TABLET (FP) PO SCH (09:14)
[2020-11-01] MEDS: MECLIZINE HCL 12.5 MG TABLET PO SCH (10:20)
[2020-11-01] MEDS ORDERED: cloNIDine HCL 0.1 MG TABLET PO ONE (10:45)
[2020-11-01] MEDS ORDERED: LOSARTAN POTASSIUM 50 MG TABLET PO ONE (10:45)
[2020-11-01] MEDS: LABETALOL HCL 100 MG TABLET (FP) PO SCH ×2 (15:38→22:02)
[2020-11-01] MEDS: ATORVASTATIN CA 80 MG TABLET (FP) PO SCH (22:01)
[2020-11-01] MEDS: SOLIFENACIN SUCCINATE 5 MG TAB PO SCH (22:01)
[2020-11-01] MEDS: MINOXIDIL 2.5 MG TABLET PO SCH (22:01)
[2020-11-02] MEDS ORDERED: NITROGLYCERIN 2% OINTMENT - 1GM PACKET TD ONE (01:58)
[2020-11-02] MEDS: LABETALOL HCL 100 MG TABLET (FP) PO SCH ×2 (06:02→17:10)
[2020-11-02] MEDS: hydrALAZINE HCL 50 MG TABLET (FP) PO SCH ×3 (06:02→21:03)
[2020-11-02] MEDS: INSULIN (LEVEMIR) 100 UNITS/ML UNITS SQ SCH (06:02)
[2020-11-02 07:39] LABS: BASO % 0.6 % (0-2.0); EOS % 4.1 % (0-4.5); HEMATOCRIT 35.8 % (35.4-49); HEMOGLOBIN 11.4 GM/dL (11.7-16.9); LYMPH % 13.2 % (8-40); MCH 26.7 pg (25.7-33.7); MCHC 31.9 g/dl (32.0-35.9); MEAN CELL VOLUME 83.7 fl (80-96); MEAN PLT VOLUME 8.8 fl (7.5-11.1); MONO % 7.6 % (3.8-10.2); NEUT % 74.5 % (42.8-82.8); PLATELET COUNT 186 10^3/uL (134-434); RBC 4.27 M/mm3 (4.00-5.60); RDW 14.9 % (11.9-15.9); WHITE BLOOD COUNT 6.8 K/mm3 (4.0-10.0)
[2020-11-02 07:56] LABS: ALBUMIN 2.8 g/dl (3.4-5.0); BLOOD UREA NITROGEN 58.1 mg/dL (7-18); CALCIUM 7.7 mg/dL (8.5-10.1)
[2020-11-02 07:59] LABS: CREATININE 4.8 mg/dL (0.55-1.3)
[2020-11-02 08:00] LABS: PHOSPHOROUS 5.8 mg/dL (2.5-4.9)
[2020-11-02 08:01] LABS: BILIRUBIN,TOTAL 0.4 mg/dL (0.2-1); TOT PROT 5.9 g/dl (6.4-8.2)
[2020-11-02] MEDS ORDERED: PT OWN MED DRAWER 7, Y5N ONE ×2 (09:19→20:48)
[2020-11-02] MEDS: ASPIRIN 81 MG CHEWABLE TABLETS PO SCH (09:24)
[2020-11-02] MEDS: NIFEdipine E.R 60 MG TABLET PO SCH (09:24)
[2020-11-02] MEDS: MINOXIDIL 2.5 MG TABLET PO SCH ×2 (09:24→21:04)
[2020-11-02] MEDS: ISOSORBIDE MONONITRATE 60 MG TAB.SR.24H (FP) PO SCH (09:25)
[2020-11-02] MEDS: GABAPENTIN 100 MG CAPSULE PO SCH ×2 (09:25→21:03)
[2020-11-02] MEDS: FLUDROCORTISONE ACETATE 0.1 MG TABLET (FP) PO SCH (09:25)
[2020-11-02] MEDS: ENOXAPARIN NA (PORCINE) 30 MG/0.3 ML DISP.SYRIN SQ SCH (09:25)
[2020-11-02] MEDS: MECLIZINE HCL 12.5 MG TABLET PO SCH (09:25)
[2020-11-02] MEDS: TAMSULOSIN HCL 0.4 MG CAP PO SCH (09:25)
[2020-11-02] MEDS: CLOPIDOGREL BISULFATE 75 MG TABLET (FP) PO SCH (09:25)
[2020-11-02] MEDS ORDERED: SODIUM CHLORIDE 250 ML IV PRN (09:42)
[2020-11-02] MEDS ORDERED: HEPARIN NA (PORCINE) 5,000 UNITS/ML 1ML VIAL IVPUSH ONE (09:42)
[2020-11-02 14:37] LABS: LDH 209 U/L (87-246)
[2020-11-02] MEDS: ATORVASTATIN CA 80 MG TABLET (FP) PO SCH (21:03)
[2020-11-02] MEDS: LABETALOL HCL 200 MG TABLET (FP) PO SCH (21:03)
[2020-11-02] MEDS: SOLIFENACIN SUCCINATE 5 MG TAB PO SCH (21:03)
[2020-11-03] MEDS ORDERED: NITROGLYCERIN 2% OINTMENT - 1GM PACKET TD ONE (03:01)
[2020-11-03] MEDS: hydrALAZINE HCL 50 MG TABLET (FP) PO SCH ×4 (03:17→22:45)
[2020-11-03] MEDS: LABETALOL HCL 200 MG TABLET (FP) PO SCH ×3 (05:36→22:45)
[2020-11-03] MEDS: INSULIN (LEVEMIR) 100 UNITS/ML UNITS SQ SCH (06:19)
[2020-11-03] MEDS: ISOSORBIDE MONONITRATE 60 MG TAB.SR.24H (FP) PO SCH ×2 (06:53→09:59)
[2020-11-03 07:08] LABS: BASO % 0.9 % (0-2.0); EOS % 4.5 % (0-4.5); HEMATOCRIT 33.8 % (35.4-49); HEMOGLOBIN 11.2 GM/dL (11.7-16.9); LYMPH % 14.3 % (8-40); MCH 26.9 pg (25.7-33.7); MEAN CELL VOLUME 81.4 fl (80-96); MEAN PLT VOLUME 8.5 fl (7.5-11.1); NEUT % 73.3 % (42.8-82.8); PLATELET COUNT 161 10^3/uL (134-434); RBC 4.16 M/mm3 (4.00-5.60); RDW 14.8 % (11.9-15.9); WHITE BLOOD COUNT 6.4 K/mm3 (4.0-10.0)
[2020-11-03 07:27] LABS: ALBUMIN 2.7 g/dl (3.4-5.0); CALCIUM 7.5 mg/dL (8.5-10.1)
[2020-11-03 07:28] LABS: MAGNESIUM 1.9 mg/dL (1.8-2.4)
[2020-11-03 07:31] LABS: CREATININE 3.2 mg/dL (0.55-1.3)
[2020-11-03 07:32] LABS: BILIRUBIN,TOTAL 0.4 mg/dL (0.2-1); TOT PROT 5.6 g/dl (6.4-8.2)
[2020-11-03] MEDS: MINOXIDIL 2.5 MG TABLET PO SCH ×3 (07:47→22:57)
[2020-11-03] MEDS ORDERED: PT OWN MED DRAWER 7, Y5N ONE ×2 (09:46→22:38)
[2020-11-03] MEDS: NIFEdipine E.R 60 MG TABLET PO SCH (09:56)
[2020-11-03] MEDS: TAMSULOSIN HCL 0.4 MG CAP PO SCH (09:56)
[2020-11-03] MEDS: SERTRALINE HCL 25 MG TABLET (FP) PO SCH (09:56)
[2020-11-03] MEDS: VITAMIN B COMP W-C 1 EA TABLET (NEPHRO-VITE) PO SCH (09:56)
[2020-11-03] MEDS: GABAPENTIN 100 MG CAPSULE PO SCH ×2 (09:56→22:45)
[2020-11-03] MEDS: MECLIZINE HCL 12.5 MG TABLET PO SCH (09:56)
[2020-11-03] MEDS: CLOPIDOGREL BISULFATE 75 MG TABLET (FP) PO SCH (09:56)
[2020-11-03] MEDS: FLUDROCORTISONE ACETATE 0.1 MG TABLET (FP) PO SCH (09:56)
[2020-11-03] MEDS: ASPIRIN 81 MG CHEWABLE TABLETS PO SCH (09:56)
[2020-11-03] MEDS: ENOXAPARIN NA (PORCINE) 30 MG/0.3 ML DISP.SYRIN SQ SCH (10:49)
[2020-11-03] MEDS: INSULIN SLIDING SCALE (NOVOLOG) 1 VIAL SQ SCH ×2 (11:05→16:53)
[2020-11-03] MEDS ORDERED: SODIUM CHLORIDE 250 ML IV PRN (14:22)
[2020-11-03 16:08] LABS: HEP B CORE AB, TOT Negative (Negative)
[2020-11-03] MEDS: ATORVASTATIN CA 80 MG TABLET (FP) PO SCH (22:45)
[2020-11-03] MEDS: SOLIFENACIN SUCCINATE 5 MG TAB PO SCH (22:45)
[2020-11-03] MEDS ORDERED: INSULIN (NOVOLOG) ASPART 100 UNITS/ML 10ML VIAL SQ ONE (23:07)
[2020-11-04] MEDS: INSULIN (LEVEMIR) 100 UNITS/ML UNITS SQ SCH (06:09)
[2020-11-04] MEDS: LABETALOL HCL 200 MG TABLET (FP) PO SCH (06:09)
[2020-11-04] MEDS: hydrALAZINE HCL 50 MG TABLET (FP) PO SCH (06:09)
[2020-11-04] MEDS: INSULIN SLIDING SCALE (NOVOLOG) 1 VIAL SQ SCH ×2 (06:10→10:55)
[2020-11-04 08:11] LABS: BASO % 0.7 % (0-2.0); EOS % 4.7 % (0-4.5); HEMATOCRIT 34.4 % (35.4-49); HEMOGLOBIN 11.3 GM/dL (11.7-16.9); LYMPH % 13.7 % (8-40); MCH 26.9 pg (25.7-33.7); MCHC 32.9 g/dl (32.0-35.9); MEAN CELL VOLUME 81.7 fl (80-96); MEAN PLT VOLUME 8.5 fl (7.5-11.1); NEUT % 74.9 % (42.8-82.8); PLATELET COUNT 165 10^3/uL (134-434); RDW 14.9 % (11.9-15.9); WHITE BLOOD COUNT 7.1 K/mm3 (4.0-10.0)
[2020-11-04 08:38] LABS: ALBUMIN 2.7 g/dl (3.4-5.0); BLOOD UREA NITROGEN 48.3 mg/dL (7-18); CALCIUM 8.1 mg/dL (8.5-10.1)
[2020-11-04 08:39] LABS: MAGNESIUM 1.9 mg/dL (1.8-2.4)
[2020-11-04 08:42] LABS: BILIRUBIN,TOTAL 0.4 mg/dL (0.2-1); TOT PROT 5.7 g/dl (6.4-8.2)
[2020-11-04] MEDS ORDERED: ERGOCALCIFEROL (VIT D2) 50,000 UNIT (1.25 MG) CAPSULE PO SCH (10:00)
[2020-11-04] MEDS ORDERED: cloNIDine-TTS 0.3 MG /24 HRS PATCH.TDWK TD SCH (10:00)
[2020-11-04] MEDS ORDERED: PT OWN MED DRAWER 7, Y5N ONE ×2 (10:33→11:08)
[2020-11-04 10:50] VITALS: BP 188/95; PULSE 70; TEMP 98.3
[2020-11-04] MEDS: TAMSULOSIN HCL 0.4 MG CAP PO SCH (10:52)
[2020-11-04] MEDS: ASPIRIN 81 MG CHEWABLE TABLETS PO SCH (10:52)
[2020-11-04] MEDS: GABAPENTIN 100 MG CAPSULE PO SCH (10:52)
[2020-11-04] MEDS: NIFEdipine E.R 60 MG TABLET PO SCH (10:52)
[2020-11-04] MEDS: VITAMIN B COMP W-C 1 EA TABLET (NEPHRO-VITE) PO SCH (10:52)
[2020-11-04] MEDS: ISOSORBIDE MONONITRATE 60 MG TAB.SR.24H (FP) PO SCH (10:52)
[2020-11-04] MEDS: MECLIZINE HCL 12.5 MG TABLET PO SCH (10:52)
[2020-11-04] MEDS: ENOXAPARIN NA (PORCINE) 30 MG/0.3 ML DISP.SYRIN SQ SCH (10:53)
[2020-11-04] MEDS: CLOPIDOGREL BISULFATE 75 MG TABLET (FP) PO SCH (10:53)
[2020-11-04] MEDS: SERTRALINE HCL 25 MG TABLET (FP) PO SCH (10:53)
[2020-11-04] MEDS: MINOXIDIL 2.5 MG TABLET PO SCH (10:54)
[2020-11-04] MEDS: FLUDROCORTISONE ACETATE 0.1 MG TABLET (FP) PO SCH (10:54)
== END 2020-11-04 13:24 | disposition home or self-care (01) | DRG 425 ==
LOC: JER 09:53 → JERBED 12:35 → J4S 21:50
PROVIDERS: ADMIT Internal Medicine; ATTEND Nurse Practitioner Acute Care
PROC: 5A1D70Z Performance of Urinary Filtration, Intermittent, Less than 6 Hours Per Day (ICD-10-PCS; principal; 2020-11-04)
DX: E87.79 Other fluid overload (principal); I69.354 Hemiplegia and hemiparesis following cerebral infarction affecting left non-dominant side; I50.9 Heart failure, unspecified; E78.5 Hyperlipidemia, unspecified; F17.210 Nicotine dependence, cigarettes, uncomplicated; N18.6 End stage renal disease; I13.2 Hypertensive heart and chronic kidney disease with heart failure and with stage 5 chronic kidney disease, or end stage renal disease; U07.1 COVID-19; Z99.2 Dependence on renal dialysis; E87.5 Hyperkalemia
CPT/HCPCS: 36415; 71045-TC-FY; 80053; 82728; 82962; 83615; 83735; 84100; 85025; 85379; 86140; 86704; 86706; 86707; 86708; 86709; 86769; 86803; 87340; 93005; 93010; 99285-25; C9803; J0735; J1644; U0003; U0005

== ENCOUNTER 2021-08-05 04:17 | Day surgery (SDC) | payer OTHER ==
[2021-08-04 09:42] VITALS: BMI 22.2
[2021-08-05] MEDS ORDERED: LIDOCAINE HCL 1%, 10 MG/ML (20ML VIAL) ONE ×3 (08:34→13:38)
[2021-08-05] MEDS ORDERED: HEPARIN NA (PORCINE) 5,000 UNITS/ML 1ML VIAL ONE ×2 (08:34→13:39)
[2021-08-05] MEDS ORDERED: MIDAZOLAM HCL 2 MG/2 ML SINGLE DOSE VIAL ONE (13:43)
[2021-08-05] MEDS ORDERED: ceFAZolin SODIUM 1 GM VIAL IVPB ONE (14:15)
[2021-08-05] MEDS ORDERED: LACTATED RINGERS SOLUTION 1,000 ML IV SCH (15:15)
[2021-08-05 17:16] VITALS: TEMP 98
[2021-08-05 17:24] VITALS: BP 135/78; PULSE 68
== END 2021-08-05 17:20 | disposition home or self-care (01) ==
LOC: JASU-SURG 04:17
PROVIDERS: ATTEND Surgery Vascular Surgery
PROC: 057C3ZZ Dilation of Left Basilic Vein, Percutaneous Approach (ICD-10-PCS; 2021-08-05)
PROC: 057 Upper Veins, Dilation (ICD-10-PCS; principal; 2021-08-05 12:00)
DX: T82.858A Stenosis of other vascular prosthetic devices, implants and grafts, initial encounter (principal); I12.0 Hypertensive chronic kidney disease with stage 5 chronic kidney disease or end stage renal disease; E11.22 Type 2 diabetes mellitus with diabetic chronic kidney disease; N18.6 End stage renal disease; Z99.2 Dependence on renal dialysis
CPT/HCPCS: 36215; 36902; 75710; C2623; 36415; 76000-TC-FY; 82962; 84132; 94760; J1644

== ENCOUNTER 2022-02-17 01:24 | Inpatient (IN) | payer OTHER ==
[2022-02-17 03:38] LABS: BASO % 0.5 % (0-2.0); EOS % 0.8 % (0-4.5); HEMATOCRIT 37.2 % (35.4-49); HEMOGLOBIN 12.1 GM/dL (11.7-16.9); LYMPH % 5.2 % (8-40); MCH 28.5 pg (25.7-33.7); MCHC 32.6 g/dl (32.0-35.9); MEAN CELL VOLUME 87.5 fl (80-96); MEAN PLT VOLUME 7.9 fl (7.5-11.1); MONO % 3.7 % (3.8-10.2); NEUT % 89.8 % (42.8-82.8); PLATELET COUNT 202 10^3/uL (134-434); RBC 4.25 M/mm3 (4.00-5.60); RDW 14.8 % (11.9-15.9); WHITE BLOOD COUNT 11.5 K/mm3 (4.0-10.0)
[2022-02-17 03:59] LABS: CALCIUM 8.7 mg/dL (8.5-10.1)
[2022-02-17 04:00] LABS: ALBUMIN 3.4 g/dl (3.4-5.0); BLOOD UREA NITROGEN 41.7 mg/dL (7-18)
[2022-02-17 04:03] LABS: CREATININE 4.5 mg/dL (0.55-1.3)
[2022-02-17 04:04] LABS: BILIRUBIN,TOTAL 0.6 mg/dL (0.2-1); TOT PROT 6.4 g/dl (6.4-8.2)
[2022-02-17] MEDS ORDERED: MECLIZINE HCL 12.5 MG TABLET PO ONE (05:55)
[2022-02-17] MEDS ORDERED: LABETALOL HCL 100 MG TABLET (FP) PO SCH (06:00)
[2022-02-17] MEDS: hydrALAZINE HCL 50 MG TABLET (FP) PO SCH ×3 (06:24→21:37)
[2022-02-17] MEDS: TAMSULOSIN HCL 0.4 MG CAP PO SCH (08:11)
[2022-02-17] MEDS ORDERED: DEXTROSE 50%-WATER - 25 GM/50 ML VIAL IVPUSH ONE ×2 (08:22)
[2022-02-17] MEDS ORDERED: DEXTROSE 50%-WATER 25 GM/50 ML DISP.SYRIN ONE (08:23)
[2022-02-17] MEDS ORDERED: DEXTROSE 50%-WATER - 25 GM/50 ML VIAL IVPUSH PRN (08:58)
[2022-02-17] MEDS: GABAPENTIN 100 MG CAPSULE PO SCH ×2 (09:10→21:37)
[2022-02-17] MEDS: SERTRALINE HCL 25 MG TABLET (FP) PO SCH (09:11)
[2022-02-17] MEDS: FLUDROCORTISONE ACETATE 0.1 MG TABLET (FP) PO SCH (09:11)
[2022-02-17] MEDS: CLOPIDOGREL BISULFATE 75 MG TABLET (FP) PO SCH (09:11)
[2022-02-17] MEDS: ASPIRIN COATED 81 MG TABLET.EC PO SCH (09:12)
[2022-02-17] MEDS ORDERED: LABETALOL HCL 5 MG/1 ML (100MG/20 ML VIAL) IVPUSH ONE (09:12)
[2022-02-17] MEDS: NICOTINE 7 MG/24 HOURS TOPICAL PATCH TD SCH (09:16)
[2022-02-17] MEDS ORDERED: OXYBUTYNIN CHLORIDE 5 MG TABLET PO SCH (10:00)
[2022-02-17] MEDS: LABETALOL HCL 100 MG TABLET (FP) PO SCH ×2 (14:09→21:37)
[2022-02-17] MEDS: ATORVASTATIN CA 80 MG TABLET (FP) PO SCH (21:37)
[2022-02-17] MEDS: INSULIN (NOVOLOG) ASPART 100 UNITS/ML 10ML VIAL SQ SCH (21:38)
[2022-02-17] MEDS ORDERED: INSULIN (NOVOLOG) ASPART 100 UNITS/ML 10ML VIAL SQ SCH (22:00)
[2022-02-17 23:17] LABS: EPI CELLS 6 /uL (0-25.1); HYALINE CASTS 1 /uL (0-3.1); URINE APPEARANCE TURBID; URINE BACTERIA >9,000 /uL (0-1359); URINE BILIRUBIN NEGATIVE (NEGATIVE); URINE COLOR YELLOW; URINE GLUCOSE (UA) 3+ (NEGATIVE); URINE KETONE NEGATIVE (NEGATIVE); URINE LEUK ESTERASE 3+ (NEGATIVE); URINE NITRITE NEGATIVE (NEGATIVE); URINE PROTEIN 3+ (NEGATIVE); URINE RBC 51 /uL (0-23.9); URINE UROBILINOGEN 0.2 mg/dL (0.2-1.0); URINE WBC 3040 /uL (0-25.8)
[2022-02-18] MEDS: INSULIN (NOVOLOG) ASPART 100 UNITS/ML 10ML VIAL SQ SCH ×2 (01:15→06:25)
[2022-02-18] MEDS: hydrALAZINE HCL 50 MG TABLET (FP) PO SCH ×3 (06:36→21:04)
[2022-02-18] MEDS: LABETALOL HCL 100 MG TABLET (FP) PO SCH ×3 (06:36→21:04)
[2022-02-18 08:14] LABS: BASO % 0.5 % (0-2.0); EOS % 2.4 % (0-4.5); HEMATOCRIT 34.6 % (35.4-49); HEMOGLOBIN 11.8 GM/dL (11.7-16.9); INR 1.1 (0.83-1.09); LYMPH % 18.7 % (8-40); MCH 29.6 pg (25.7-33.7); MEAN PLT VOLUME 8.1 fl (7.5-11.1); NEUT % 70.4 % (42.8-82.8); PLATELET COUNT 196 10^3/uL (134-434); PROTHROMBIN TIME (PATIENT) 12.7 SEC (9.7-13.0); RBC 3.97 M/mm3 (4.00-5.60); RDW 14.5 % (11.9-15.9); WHITE BLOOD COUNT 6.2 K/mm3 (4.0-10.0)
[2022-02-18 08:17] LABS: ACTIVATED PTT 31.7 SECONDS (25.2-36.5)
[2022-02-18 08:23] LABS: CHLORIDE 103 mmol/L (98-107); SODIUM 139 mmol/L (136-145)
[2022-02-18 08:28] LABS: ALBUMIN 3.1 g/dl (3.4-5.0); ANION GAP 10 MMOL/L (8-16); CALCIUM 8.6 mg/dL (8.5-10.1); CO2 27 mmol/L (21-32); MAGNESIUM 2.5 mg/dL (1.8-2.4)
[2022-02-18 08:29] LABS: PHOSPHOROUS 3.9 mg/dL (2.5-4.9); SGPT/ALT 18 U/L (13-61)
[2022-02-18 08:31] LABS: BILIRUBIN,TOTAL 0.6 mg/dL (0.2-1); CREATININE 5.8 mg/dL (0.55-1.3); SGOT/AST 12 U/L (15-37); TOT PROT 6.2 g/dl (6.4-8.2)
[2022-02-18 08:32] LABS: ALK PHOS 111 U/L (45-117)
[2022-02-18 08:49] LABS: BLOOD UREA NITROGEN 68.2 mg/dL (7-18); GLUCOSE,RANDOM 46 mg/dL (74-106)
[2022-02-18] MEDS: ASPIRIN COATED 81 MG TABLET.EC PO SCH (09:26)
[2022-02-18] MEDS: FLUDROCORTISONE ACETATE 0.1 MG TABLET (FP) PO SCH (09:26)
[2022-02-18] MEDS: CLOPIDOGREL BISULFATE 75 MG TABLET (FP) PO SCH (09:26)
[2022-02-18] MEDS: SERTRALINE HCL 25 MG TABLET (FP) PO SCH (09:27)
[2022-02-18] MEDS: TAMSULOSIN HCL 0.4 MG CAP PO SCH (09:27)
[2022-02-18] MEDS: GABAPENTIN 100 MG CAPSULE PO SCH ×2 (09:27→21:04)
[2022-02-18 09:47] LABS: HEMATOCRIT 34.9 % (35.4-49); HEMOGLOBIN 11.4 GM/dL (11.7-16.9); MCH 28.5 pg (25.7-33.7); MCHC 32.8 g/dl (32.0-35.9); MEAN CELL VOLUME 86.9 fl (80-96); MEAN PLT VOLUME 8.5 fl (7.5-11.1); PLATELET COUNT 193 10^3/uL (134-434); RBC 4.01 M/mm3 (4.00-5.60); RDW 14.5 % (11.9-15.9); WHITE BLOOD COUNT 6.4 K/mm3 (4.0-10.0)
[2022-02-18] MEDS: NICOTINE 7 MG/24 HOURS TOPICAL PATCH TD SCH (10:22)
[2022-02-18] MEDS ORDERED: SODIUM CHLORIDE 250 ML IV PRN (12:36)
[2022-02-18] MEDS: INSULIN SLIDING SCALE (NOVOLOG) 1 VIAL SQ SCH ×3 (12:41→21:05)
[2022-02-18] MEDS: CEFTRIAXONE 1 GM in DEXTROSE 5%-WATER - 50 ML IVPB SCH (12:42)
[2022-02-18] MEDS ORDERED: HEPARIN NA (PORCINE) 5,000 UNITS/ML 1ML VIAL IVPUSH ONE (13:00)
[2022-02-18] MEDS ORDERED: LABETALOL HCL 5 MG/1 ML (100MG/20 ML VIAL) IVPUSH ONE (16:07)
[2022-02-18] MEDS: ATORVASTATIN CA 80 MG TABLET (FP) PO SCH (21:04)
[2022-02-18] MEDS ORDERED: DEXMEDETOMIDINE PREMIX 400 MCG/100 ML BAG IVPB SCH (21:45)
[2022-02-19] MEDS: hydrALAZINE HCL 50 MG TABLET (FP) PO SCH ×2 (06:01→13:33)
[2022-02-19] MEDS: LABETALOL HCL 100 MG TABLET (FP) PO SCH ×2 (06:01→13:33)
[2022-02-19] MEDS: INSULIN SLIDING SCALE (NOVOLOG) 1 VIAL SQ SCH ×2 (06:01→11:42)
[2022-02-19 07:22] LABS: BASO % 0.9 % (0-2.0); HEMATOCRIT 35.9 % (35.4-49); HEMOGLOBIN 11.4 GM/dL (11.7-16.9); LYMPH % 19.4 % (8-40); MCH 27.7 pg (25.7-33.7); MCHC 31.9 g/dl (32.0-35.9); MEAN CELL VOLUME 86.9 fl (80-96); MEAN PLT VOLUME 8.2 fl (7.5-11.1); MONO % 8.3 % (3.8-10.2); NEUT % 68.4 % (42.8-82.8); PLATELET COUNT 201 10^3/uL (134-434); RBC 4.13 M/mm3 (4.00-5.60); RDW 14.4 % (11.9-15.9); WHITE BLOOD COUNT 4.8 K/mm3 (4.0-10.0)
[2022-02-19 07:44] LABS: BLOOD UREA NITROGEN 43.6 mg/dL (7-18); CALCIUM 8.9 mg/dL (8.5-10.1)
[2022-02-19 07:46] LABS: CREATININE 4.5 mg/dL (0.55-1.3); PHOSPHOROUS 4.2 mg/dL (2.5-4.9)
[2022-02-19 07:49] LABS: BILIRUBIN,TOTAL 0.5 mg/dL (0.2-1)
[2022-02-19] MEDS: CEFTRIAXONE 1 GM in DEXTROSE 5%-WATER - 50 ML IVPB SCH (09:37)
[2022-02-19] MEDS: ASPIRIN COATED 81 MG TABLET.EC PO SCH (10:02)
[2022-02-19] MEDS: FLUDROCORTISONE ACETATE 0.1 MG TABLET (FP) PO SCH (10:02)
[2022-02-19] MEDS: GABAPENTIN 100 MG CAPSULE PO SCH (10:02)
[2022-02-19] MEDS: SERTRALINE HCL 25 MG TABLET (FP) PO SCH (10:02)
[2022-02-19] MEDS: TAMSULOSIN HCL 0.4 MG CAP PO SCH (10:02)
[2022-02-19] MEDS: CLOPIDOGREL BISULFATE 75 MG TABLET (FP) PO SCH (10:02)
[2022-02-19] MEDS: NICOTINE 7 MG/24 HOURS TOPICAL PATCH TD SCH (11:42)
[2022-02-19 12:22] VITALS: BMI 22.8
[2022-02-19 12:28] VITALS: TEMP 97.5
[2022-02-19] MEDS ORDERED: ISOSORBIDE MONONITRATE 30 MG TAB.SR.24H (FP) PO ONE (14:28)
[2022-02-19 15:52] VITALS: BP 170/88; PULSE 62; RESP 15
== END 2022-02-19 16:00 | disposition home or self-care (01) | DRG 917 ==
LOC: JER 01:24 → JERBED 01:59 → JICU 05:07
PROVIDERS: ADMIT Internal Medicine Pulmonary Disease; ATTEND Internal Medicine Pulmonary Disease
PROC: 5A1D70Z Performance of Urinary Filtration, Intermittent, Less than 6 Hours Per Day (ICD-10-PCS; principal; 2022-02-18)
DX: T38.3X1A Poisoning by insulin and oral hypoglycemic [antidiabetic] drugs, accidental (unintentional), initial encounter (principal); N18.6 End stage renal disease; I13.2 Hypertensive heart and chronic kidney disease with heart failure and with stage 5 chronic kidney disease, or end stage renal disease; Y92.89 Other specified places as the place of occurrence of the external cause; E11.649 Type 2 diabetes mellitus with hypoglycemia without coma; I50.9 Heart failure, unspecified; F17.210 Nicotine dependence, cigarettes, uncomplicated; E78.5 Hyperlipidemia, unspecified
CPT/HCPCS: 36415; 71045-TC-FY; 80053; 81003; 82962; 83735; 84100; 85025; 85027; 85610; 85730; 86803; 87086; 87186; 87340; 93005; 93010; 99285-25; C9803-CS; J1644; U0003; U0005